=== PATIENT | male | born 1935 | race Caucasian/White ===

== ENCOUNTER → 2017-11-28 12:46 | Outpatient (CLI) | payer MEDICARE, SELFPAY ==
[2017-11-28 13:31] LABS: AST(SGOT) 21 U/L (15-37); Alanine Aminotransfer ALT/SGPT 34 U/L (16-61); Albumin, Serum 3.7 g/dL (3.2-5.0); Alkaline Phosphatase 76 U/L (45-117); Bilirubin, Direct 0.12 mg/dL (0.00-0.30); Cholesterol 123 mg/dL (200); Globulin 3.9 g/dL (2.2-4.2); High Density Lipoprotein 34 mg/dL; Protein, Total 7.6 g/dL (6.4-8.2); Triglycerides 100 mg/dL; Very Low Density Lipoprotein 20 mg/dL (5-40)
== END ==
PROVIDERS: Family Provider Internal Medicine; PCP Internal Medicine; Visit Provider Internal Medicine Cardiovascular Disease
DX: E78.5 Hyperlipidemia, unspecified (principal); Z79.899 Other long term (current) drug therapy
CPT/HCPCS: 36415; 80061; 80076

== ENCOUNTER → 2018-01-27 11:01 | Outpatient (CLI) | payer MEDICARE, SELFPAY ==
--- NOTE | 2018-01-27 11:21 | RAD_ITS ---
STUDY: X-RAY CHEST REASON FOR EXAM: Male, 82 years old. Short of breath. COPD. Heart disease. TECHNIQUE: Frontal and lateral views of the chest. COMPARISON: 11/28/2014. FINDINGS: The lungs are hyperexpanded. There are coarsened interstitial markings suggestive of mild chronic fibrosis. No gross focal infiltrates. No gross effusions. Normal size heart. Normal mediastinum and frank. Normal visualized pulmonary arteries. Normal visualized aortic arch and descending thoracic aorta. There are diffuse degenerative changes of the visualized thoracic spine. There has been previous surgical repair of right clavicular fracture. There is no demonstrated abnormality of the visualized soft tissue structures of the upper abdomen. RAD/Chest PA and Lateral IMPRESSION: There are findings consistent with COPD. There is no evidence of acute chest disease. Electronically Signed: Hunter Perea MD at 16:33 EDT , Service support ,
[2018-01-27 12:20] LABS: Anion Gap 5 (5-15); BUN 15 mg/dL (7-18); BUN/Creat Ratio 13.3 RATIO (10-20); Calcium,Total 8.7 mg/dL (8.5-10.1); Chloride 105 mmol/L (98-107); Creatinine, Serum 1.13 mg/dL (0.70-1.30); EST Glomerular Filtration Rate 66 mL/min (>60); Est Glom Filt Rate - Afr Amer 80 mL/min (>60); Glucose 174 mg/dL (74-106); Potassium 3.8 mmol/L (3.5-5.1); Sodium Level 139 mmol/L (136-145)
[2018-01-27 12:33] LABS: BNP,B-Type NATRIURETIC PEPTIDE 102.8 pg/mL (0-100)
== END ==
PROVIDERS: Family Provider Internal Medicine; PCP Internal Medicine; Visit Provider Nurse Practitioner Acute Care
DX: R06.02 Shortness of breath (principal)
CPT/HCPCS: 36415; 71046; 80048; 83880

== ENCOUNTER → 2018-02-12 06:39 | Outpatient (CLI) | payer MEDICARE, SELFPAY ==
--- NOTE | 2018-02-12 08:54 | STRESSREP ---
Stress Test Report Pharmacologic myocardial perfusion stress test. 82-year-old male with a history of chest pain. Stress protocol: Resting EKG demonstrates sinus bradycardia with a rate of 50 bpm. Resting blood pressure is 180/84 mmHg. 0.4 mg regadenoson was infused per usual protocol followed by Intravenous saline flush injection continuous EKG monitoring was performed patient maintained sinus rhythm throughout the recording with occasional premature ventricular complex noted. The maximum heart rate attained was 68 bpm which was 48% of maximum predicted heart rate the maximum workload was 1 metabolic equivalent. The resting blood pressure is 180/84 with a final blood pressure 160/82. Myocardial perfusion protocol. 11.3 mCi of technetium 99m sestamibi was injected at rest. 0.4 mg of regadenoson was infused per usual protocol. At peak infusion 33.9 mCi of technetium 99m sestamibi was injected stress images were obtained stress and rest images were reconstructed and compared in the short axis vertical long and horizontal long axis. Gated images were also obtained - Perfusion SPECT analysis: Review of the stress images demonstrate normal uptake of tracer noted in all areas of the myocardium. The resting images similarly demonstrate normal uptake of tracer noted in all areas of myocardium. No areas of reversibility are noted suggest ischemia no previous infarct is noted. Gated SPECT analysis: The gated ejection fraction was noted to be 61%. Conclusion: Normal pharmacologic myocardial perfusion stress test. Preserved ejection fraction.
[2018-02-12 10:56] VITALS: PULSE 60; PULSE 61; PULSE 62; PULSE 67; PULSE 69; PULSE 71; PULSE 72; PULSE 74; O2SAT 93; O2SAT 94; O2SAT 95; O2SAT 98
--- NOTE | 2018-02-13 08:42 | WT_ITS ---
PSN 6 Minute Walk Test - 6 Minute Walk Test 6 Minute Walk Test: 6 Minute Walk Test PSN:6-Minute Walk Test Start: 02/12/18 10: 56 Freq: Status: Active Protocol: [id number] Document 02/12/18 10:56 CAILINRAVIN (Rec: 02/12/18 10:58 CAILINRAVIN [id number]) 6 Minute Walk Test Date Performed 02/12/18 Time Performed 10:40 Height 5 ft 10 in Weight: 212 lb Weight in Pounds 212.[address]: Chito Rivero Assistive device used: None Pre-test Oxygen Delivery Method Room Air Pulse Ox (%) 95 Pulse Rate (60-100 beats/min) 61 Dyspnea Skyler Scale (0-10) 0 Exertion Skyler Scale (6-20) 6 1st minute Oxygen Delivery Method Room Air Pulse Ox (%) 95 Pulse Rate (60-100 beats/min) 62 2nd minute Oxygen Delivery Method Room Air Pulse Ox (%) 94 Pulse Rate (60-100 beats/min) 67 3rd minute Oxygen Delivery Method Room Air Pulse Ox (%) 94 Pulse Rate (60-100 beats/min) 69 4th minute Oxygen Delivery Method Room Air Pulse Ox (%) 93 Pulse Rate (60-100 beats/min) 71 5th minute Oxygen Delivery Method Room Air Pulse Ox (%) 94 Pulse Rate (60-100 beats/min) 72 6th minute Oxygen Delivery Method Room Air Pulse Ox (%) 94 Pulse Rate (60-100 beats/min) 74 Dyspnea Skyler Scale (0-10) 2 Exertion Skyler Scale (6-20) 14 Post-test Oxygen Delivery Method Room Air Pulse Ox (%) 98 Pulse Rate (60-100 beats/min) 60 Full Laps Walked 12 Partial Lap, Number of Tiles Walked 35 Total Distance Walked (ft) 743 - Interpretation Interpretation: The patient ambulated 743 feet over the course of 6 minutes beginning on room air without assistive devices or breaks. Pretesting oxygen saturation was noted to be 95% on room air. With ambulation, the gamaliel oxygen saturation was 93%. There was no significant exertional oxygen desaturation. - Recommendations Recommendations: There is no indication for the use of supplemental oxygen at this time.
--- NOTE | 2018-02-18 14:00 | ECHOD_ITS ---
Reason For Study: DYSPNEA/SOB Procedure This was a 2D Doppler, Color Flow transthoracic echocardiogram. Exam performed in department. Left Ventricle Normal LV size. Sigmoid septum. Left ventricular systolic function is normal. The estimated ejection fraction is 60 %. Transmitral diastolic flow velocities suggest mild (stage 1) diastolic dysfunction (reversed pattern). No regional wall motion abnormalities noted. Right Ventricle Normal RV size. Normal systolic function. Atria Normal left atrium. Normal right atrium. Mitral Valve Bileaflet diffuse mitral valve thickening. Mild mitral valve prolapse. Tricuspid Valve Normal tricuspid valve. Mild (1+) tricuspid valve insufficiency. Pulmonary artery systolic pressure is 33 mmHg. Aortic Valve Trisinus/trileaflet aortic valve. Pulmonic Valve Normal pulmonic valve. Great Vessels Normal aortic root. The pulmonary artery is normal size. Normal inferior vena cava. Pericardium/Pleural No pericardial effusion. MMode/2D Measurements & Calculations LVIDd: 4.9 cm IVSd: 1.4 cm Ao root diam: 2.9 cm LVIDs: 3.4 cm LVPWd: 0.91 cm RVDd: 3.4 cm FS: 31.1 % LAV(MOD-bp): 61.6 ml LA A4 area: 18.5 cm2 RA A4 area: 17.4 cm2 LAV(MOD-bp) Indexed: 28.8 ml/m2 LAV(MOD-sp2): 74.8 ml LAV(MOD-sp4): 49.4 ml Doppler Measurements & Calculations MV E max juaquin: 62.1 cm/sec Lat Peak E' Juaquin: 5.0 cm/sec Med Peak E' Juaquin: 3.6 cm/sec MV A max juaquin: 99.2 cm/sec E/E' lat: 12.5 E/E' med: 17.2 MV E/A: 0.63 Ao V2 max: 96.8 cm/sec LV V1 max: 76.3 cm/sec PA V2 max: 54.9 cm/sec Ao max P.7 mmHg LV V1 max P.3 mmHg TR max juaquin: 276.6 cm/sec TR max P.6 mmHg Interpretation Summary Normal LV size. Left ventricular systolic function is normal. The estimated ejection fraction is 60 %. Transmitral diastolic flow velocities suggest mild (stage 1) diastolic dysfunction (reversed pattern). Bileaflet diffuse mitral valve thickening. Mild mitral valve prolapse. Pulmonary artery systolic pressure is 33 mmHg. Ordering Physician: Nabil Pierre Referring Physician: Denise Cruz Performed By: Leatha Márquez, ARDEN, RVT
== END ==
PROVIDERS: Family Provider Internal Medicine; PCP Internal Medicine; Visit Provider Nurse Practitioner Acute Care
DX: R07.89 Other chest pain (principal); R06.02 Shortness of breath
CPT/HCPCS: 78452; 93017; 94618; A9500; A4216; J2785

== ENCOUNTER → 2018-02-18 13:49 | Outpatient (CLI) | payer MEDICARE, SELFPAY | PROVIDERS: Family Provider Internal Medicine; PCP Internal Medicine; Visit Provider Nurse Practitioner Acute Care | DX: R07.89 Other chest pain (principal) | CPT/HCPCS: 93306 ==

== ENCOUNTER → 2018-03-04 11:21 | Outpatient (CLI) | payer MEDICARE, SELFPAY ==
[2018-03-04 12:14] LABS: Absolute Lymphocyte Count 2.28 X10^3/ul (0.83-4.51); Basophil# 0.04 X10^3/uL; Basophil% 0.6 % (0-1); Eosinophil# 0.21 X10^3/uL; Eosinophils% 2.9 % (0-5); Hematocrit 37.7 % (40-54); Lymphocyte # 2.28 X10^3/ul (4.0); Mean Corpuscular Volume 97.2 fL (80-94); Mean Platelet Vol. 10.4 fl (6.2-12.0); Monocyte# 0.56 X10^3/uL; Monocyte% 7.9 % (0-10); Neutrophil % 56.2 % (47-70); Platelet Count 234 K/mm3 (150-450); RBC Distribution Width SD 42.1 fl (35.1-43.9); Red Blood Count 3.88 M/mm3 (4.6-6.2); White Blood Count 7.1 K/mm3 (4.4-11.0)
[2018-03-04 12:25] LABS: POSITIVE COUNT NO; POSITIVE DIFFERENTIAL NO; POSITIVE MORPHOLOGY NO
[2018-03-04 12:29] LABS: Hemoglobin 13.2 g/dl (13.0-16.5)
[2018-03-07 10:17] LABS: Immunoglobulin E 3 IU/mL (0-100)
== END ==
PROVIDERS: Family Provider Internal Medicine; PCP Internal Medicine; Visit Provider Nurse Practitioner Acute Care
DX: N18.4 Chronic kidney disease, stage 4 (severe) (principal); R06.02 Shortness of breath
CPT/HCPCS: 82785; 85025

== ENCOUNTER → 2018-04-15 10:28 | Outpatient (CLI) | payer MEDICARE, SELFPAY ==
[2018-04-15 15:38] LABS: Anion Gap 9 (5-15); BUN 22 mg/dL (7-18); BUN/Creat Ratio 15.9 RATIO (10-20); Calcium,Total 8.7 mg/dL (8.5-10.1); Chloride 102 mmol/L (98-107); Cholesterol 120 mg/dL (200); Creatinine, Serum 1.38 mg/dL (0.70-1.30); EST Glomerular Filtration Rate 53 mL/min (>60); Est Glom Filt Rate - Afr Amer 64 mL/min (>60); Glucose 145 mg/dL (74-106); High Density Lipoprotein 27 mg/dL; Potassium 3.8 mmol/L (3.5-5.1); Sodium Level 140 mmol/L (136-145); Triglycerides 187 mg/dL; Very Low Density Lipoprotein 37 mg/dL (5-40)
[2018-04-15 20:40] LABS: Absolute Lymphocyte Count 2.32 X10^3/ul (0.83-4.51); Absolute Neutrophil Count 3.2 X10^3/uL (2.0-7.7); Basophil# 0.03 X10^3/uL; Basophil% 0.5 % (0-1); Eosinophil# 0.22 X10^3/uL; Eosinophils% 3.4 % (0-5); Hematocrit 34.8 % (40-54); Lymphocyte # 2.32 X10^3/ul (4.0); Lymphocyte % 36.4 % (19-41); Mean Platelet Vol. 10.8 fl (6.2-12.0); Monocyte# 0.58 X10^3/uL; Monocyte% 9.1 % (0-10); Neutrophil # 3.22 X10^3/uL (2.7-7.7); Neutrophil % 50.4 % (47-70); Platelet Count 255 K/mm3 (150-450); RBC Distribution Width CV 13.1 % (11.6-14.6); RBC Distribution Width SD 44.9 fl (35.1-43.9); Red Blood Count 3.51 M/mm3 (4.6-6.2); White Blood Count 6.4 K/mm3 (4.4-11.0)
[2018-04-15 20:41] LABS: Differential Indicated SCAN CRITERIA MET; Hemoglobin 14.8 g/dl (13.0-16.5); POSITIVE COUNT YES; POSITIVE DIFFERENTIAL NO; POSITIVE MORPHOLOGY NO
[2018-04-15 20:43] LABS: Mean Corp Hgb Conc 42.9 g/gl (32-36); Mean Corpuscular Hgb 42.3 pg (27.0-32.0); Mean Corpuscular Volume 98.6 fL (80-94)
[2018-04-16 08:29] LABS: Vitamin B12 336 pg/mL (211-911)
[2018-04-16 15:49] LABS: Pathologist Review Reviewed
[2018-04-17 16:15] LABS: PROEL- A/G Ratio 1.1 (0.7-1.7); PROEL- Albumin 3.8 g/dL (2.9-4.4); PROEL- Alpha-1 Globulin 0.2 g/dL (0.0-0.4); PROEL- Alpha-2 Globulin 0.9 g/dL (0.4-1.0); PROEL- Gamma Globulin 1.4 g/dL (0.4-1.8); PROEL- Globulin, Total 3.5 g/dL (2.2-3.9); PROEL- TOTAL PROTEIN 7.3 g/dL (6.0-8.5)
== END ==
PROVIDERS: Family Provider Internal Medicine; PCP Internal Medicine; Visit Provider Internal Medicine
DX: Z79.899 Other long term (current) drug therapy (principal); D64.9 Anemia, unspecified; E11.9 Type 2 diabetes mellitus without complications
CPT/HCPCS: 80048; 80061; 82607; 83036; 84165; 85025

== ENCOUNTER → 2018-04-28 22:44 | Outpatient (CLI) | payer MEDICARE, SELFPAY | PROVIDERS: Family Provider Internal Medicine; PCP Internal Medicine; Visit Provider Nurse Practitioner Acute Care | DX: G47.33 Obstructive sleep apnea (adult) (pediatric) (principal) | CPT/HCPCS: 95810; 95811 ==

== ENCOUNTER → 2018-05-26 11:12 | Outpatient (CLI) | payer MEDICARE, SELFPAY ==
[2018-05-26 13:32] LABS: Anion Gap 6 (5-15); BUN 18 mg/dL (7-18); Calcium,Total 8.8 mg/dL (8.5-10.1); Chloride 103 mmol/L (98-107); Creatinine, Serum 1.38 mg/dL (0.70-1.30); EST Glomerular Filtration Rate 53 mL/min (>60); Est Glom Filt Rate - Afr Amer 64 mL/min (>60); Glucose 144 mg/dL (74-106); PSA,Total- Diagnostic 5.58 ng/mL (0.0-4.0); Potassium 4.2 mmol/L (3.5-5.1); Sodium Level 139 mmol/L (136-145)
== END ==
PROVIDERS: Family Provider Internal Medicine; PCP Internal Medicine; Visit Provider Nurse Practitioner
DX: N28.9 Disorder of kidney and ureter, unspecified (principal); N40.1 Benign prostatic hyperplasia with lower urinary tract symptoms; R35.1 Nocturia
CPT/HCPCS: 80048; 84153

== ENCOUNTER → 2018-07-10 20:00 | Outpatient (CLI) | payer MEDICARE, SELFPAY ==
[2018-07-10] MEDS: Zolpidem Tartrate 5 MG Tablet PO (21:30)
== END ==
PROVIDERS: Family Provider Internal Medicine; PCP Internal Medicine; Visit Provider Internal Medicine Critical Care Medicine
DX: G47.33 Obstructive sleep apnea (adult) (pediatric) (principal)
CPT/HCPCS: 95811

== ENCOUNTER → 2018-09-10 08:01 | Outpatient (CLI) | payer MEDICARE, SELFPAY ==
[2018-09-04 15:11] VITALS: BMI 29.5
[2018-09-10 13:36] LABS: Hemoglobin A1c 6.4 % (4.2-6.3)
[2018-09-10 13:37] LABS: Thyroid Stim Hormone (TSH) 2.52 uIU/mL (0.358-3.74)
== END ==
PROVIDERS: Family Provider Internal Medicine; PCP Internal Medicine; Referring Provider Internal Medicine; Visit Provider Internal Medicine
DX: Z79.899 Other long term (current) drug therapy (principal)
CPT/HCPCS: 83036; 84443

== ENCOUNTER → 2018-10-06 11:10 | Outpatient (CLI) | payer MEDICARE, SELFPAY ==
[2018-10-06 10:10] VITALS: BMI 29.8
[2018-10-06 11:38] LABS: Hematocrit 39.2 % (40-54); Hemoglobin 12.9 g/dl (13.0-16.5); Mean Corp Hgb Conc 32.9 g/gl (32-36); Mean Corpuscular Hgb 30.6 pg (27.0-32.0); Mean Corpuscular Volume 93.1 fL (80-94); Mean Platelet Vol. 10.2 fl (6.2-12.0); Platelet Count 316 K/mm3 (150-450); RBC Distribution Width CV 12.3 % (11.6-14.6); Red Blood Count 4.21 M/mm3 (4.6-6.2); Scan Indicated on CBC? Y/N NO; White Blood Count 7.6 K/mm3 (4.4-11.0)
[2018-10-06 12:14] LABS: Ferritin 28 ng/mL (26-388); Iron 55 ug/dL (65-175); Iron Binding Capacity,Total 311 ug/dL (250-450); Potassium 3.8 mmol/L (3.5-5.1)
== END ==
PROVIDERS: Family Provider Internal Medicine; PCP Internal Medicine; Referring Provider Nurse Practitioner Acute Care; Visit Provider Nurse Practitioner Acute Care
DX: N18.4 Chronic kidney disease, stage 4 (severe) (principal); G47.33 Obstructive sleep apnea (adult) (pediatric); Z79.899 Other long term (current) drug therapy
CPT/HCPCS: 36415; 82728; 83540; 83550; 84132; 85027

== ENCOUNTER → 2019-02-26 11:21 | Outpatient (CLI) | payer MEDICARE, SELFPAY ==
[2019-01-28 11:05] VITALS: BMI 29.8
[2019-02-26 12:16] LABS: AST(SGOT) 21 U/L (15-37); Alanine Aminotransfer ALT/SGPT 26 U/L (16-61); Albumin, Serum 3.5 g/dL (3.2-5.0); Alkaline Phosphatase 75 U/L (45-117); Bilirubin, Direct 0.18 mg/dL (0.00-0.30); Cholesterol 120 mg/dL (200); High Density Lipoprotein 32 mg/dL; Protein, Total 7.5 g/dL (6.4-8.2); Triglycerides 125 mg/dL; Very Low Density Lipoprotein 25 mg/dL (5-40)
== END ==
PROVIDERS: Family Provider Internal Medicine; PCP Internal Medicine; Referring Provider Physician Assistant Medical; Visit Provider Physician Assistant Medical
DX: I25.10 Atherosclerotic heart disease of native coronary artery without angina pectoris (principal); I12.9 Hypertensive chronic kidney disease with stage 1 through stage 4 chronic kidney disease, or unspecified chronic kidney disease; N18.4 Chronic kidney disease, stage 4 (severe); E78.5 Hyperlipidemia, unspecified
CPT/HCPCS: 36415; 80061; 80076

== ENCOUNTER → 2019-03-04 11:45 | Outpatient (CLI) | payer MEDICARE, SELFPAY ==
[2019-01-28 11:05] VITALS: BMI 29.8
--- NOTE | 2019-03-04 11:55 | RAD_ITS ---
STUDY: X-RAY - LUMBAR SPINE REASON FOR EXAM: Male, 83 years old. Chronic back pain. TECHNIQUE: 3 view(s) of the lumbar spine were obtained. COMPARISON: None FINDINGS: Normal lumbar lordosis. There is a minimal levoscoliosis of the lumbar spine. There is a normal alignment of the vertebrae. There is multilevel endplate spondylosis of the lumbar vertebrae. There is multi-level degenerative disc disease with multi-level disc space narrowing. Facet joint osteoarthritis. There is atherosclerotic calcification of the abdominal aorta without a demonstrated aneurysm. RAD/Lumbar Spine 2 or 3 Views IMPRESSION: Degenerative changes of the spine, as detailed above. Electronically Signed: Yemi Clifton, at 12:26 EDT , Service support ,
== END ==
PROVIDERS: Family Provider Internal Medicine; PCP Internal Medicine; Referring Provider Anesthesiology Pain Medicine; Visit Provider Anesthesiology Pain Medicine
DX: M54.5 Low back pain (principal)
CPT/HCPCS: 72100

== ENCOUNTER → 2019-05-26 10:52 | Outpatient (CLI) | payer MEDICARE, SELFPAY ==
[2019-05-07 13:08] VITALS: BMI 29.5
[2019-05-26 11:17] LABS: Anion Gap 3 (5-15); BUN 20 mg/dL (7-18); BUN/Creat Ratio 14.1 RATIO (10-20); Chloride 102 mmol/L (98-107); Cholesterol 117 mg/dL (200); Creatinine, Serum 1.42 mg/dL (0.70-1.30); EST Glomerular Filtration Rate 51 mL/min (>60); Est Glom Filt Rate - Afr Amer 61 mL/min (>60); Glucose 179 mg/dL (74-106); High Density Lipoprotein 33 mg/dL; Potassium 3.7 mmol/L (3.5-5.1); Sodium Level 137 mmol/L (136-145); Triglycerides 99 mg/dL; Very Low Density Lipoprotein 20 mg/dL (5-40)
[2019-05-26 11:24] LABS: Hemoglobin A1c 7.9 % (4.2-6.3)
== END ==
PROVIDERS: Family Provider Internal Medicine; PCP Internal Medicine; Referring Provider Internal Medicine; Visit Provider Internal Medicine
DX: E11.49 Type 2 diabetes mellitus with other diabetic neurological complication (principal)
CPT/HCPCS: 80048; 80061; 83036

== ENCOUNTER 2019-06-29 10:41 | Observation (INO) | payer MEDICARE, SELFPAY ==
[2019-05-07 13:08] VITALS: BMI 29.5
[2019-06-29] VITALS (11 sets, daily range): BP systolic 126–165; BP diastolic 62–75; PULSE 50–80; RESP 17–18; TEMP 36.4–36.6; O2SAT 95–98; BMI 29.7; BMI 29.1; BMI 29.2
--- NOTE | 2019-06-29 11:22 | EKG12_ITS ---
Test Reason : CP Blood Pressure : / mmHG Vent. Rate : 066 BPM Atrial Rate : 066 BPM P-R Int : 210 ms QRS Dur : 096 ms QT Int : 446 ms P-R-T Axes : 022 028 040 degrees QTc Int : 467 ms Sinus rhythm with 1st degree A-V block Otherwise normal ECG Confirmed by JUAN SMITH, ANA ([id number]), building illuminating engineer LASHANDA GARNETT ([id number]) on 07/01/2019 10:42:47 AM Referred By: SHARITA/SUJATHA Confirmed By:ANA MARTINEZ MD
--- NOTE | 2019-06-29 11:27 | ED.DCSUM_ITS ---
- ER Visit Summary Date of Service: 06/29/19 Chief Complaint: Lightheadedness, chest pain History of Present Illness: The patient is a 84 M presenting with lightheadedness, chest pain. Patient states that he had an episode this morning where he felt very lightheaded and nearly passed out. He denies vertigo. He states he has been having intermittent chest pain and shortness of breath as well today. He has had a mild cough. He has a history of CAD, diabetes, hypertension, hypercholesterolemia. He is not a smoker. Physical Examination: Vitals are stable. Patient is afebrile. Alert no acute distress. HEENT exam is unremarkable. Neck is supple. Lungs are clear and equal bilaterally. Heart is regular rate and rhythm. Abdomen is soft nontender nondistended. Extremities are unremarkable. Skin is warm and dry. No focal neurologic deficit. Remainder of exam is unremarkable. Emergency Department Course and Treatment: EKG sinus rate of 66 with first- degree AV block. Chest x-ray shows no acute process. CBC, chemistries unremarkable other than glucose 212, BUN 19, creatinine 1.51. Troponin is negative. Patient was given aspirin on arrival. On repeat evaluation he is chest pain-free. Discussed with the hospitalist for observation. Disposition: Observation Impression: Chest pain, near-syncope This note was generated with [employer] dictation software. It may contain incorrect words, spelling, and punctuation that were not noted in review of the chart prior to signing ED Disposition - Plan for ED Patient: Referrals: Emeka Horn MD [Primary Care Provider] -
[2019-06-29] MEDS: Aspirin 81 MG TAB.CHEW 324 MG PO (11:39)
[2019-06-29 11:42] LABS: Absolute Lymphocyte Count 1.85 X10^3/uL (0.83-4.51); Absolute Neutrophil Count 4.3 X10^3/uL (2.0-7.7); Basophil# 0.03 X10^3/uL; Basophil% 0.4 % (0-1); Eosinophils% 2.8 % (0-5); Hemoglobin 13.6 g/dL (13.0-16.5); Lymphocyte # 1.85 X10^3/ul (4.0); Lymphocyte % 26.3 % (19-41); Mean Corpuscular Hgb 31.2 pg (27.0-32.0); Mean Corpuscular Volume 91.7 fL (80-94); Mean Platelet Vol. 10.1 fl (6.2-12.0); Monocyte# 0.58 X10^3/uL; Monocyte% 8.2 % (0-10); NRBC Flagged by Analyzer 0 % (0-5); Neutrophil # 4.34 X10^3/uL (2.7-7.7); Neutrophil % 61.7 % (47-70); Platelet Count 278 K/mm3 (150-450); RBC Distribution Width CV 12.1 % (11.6-14.6); RBC Distribution Width SD 40.5 fl (35.1-43.9); Red Blood Count 4.36 M/mm3 (4.6-6.2)
--- NOTE | 2019-06-29 11:50 | RAD_ITS ---
STUDY: X-RAY CHEST REASON FOR EXAM: Male, 84 years old. Weakness TECHNIQUE: Single AP portable view of the chest. COMPARISON: 01/27/2018 FINDINGS: The lungs are clear and expanded. There is no demonstrated pleural abnormality. Normal size heart. Normal mediastinum and frank. Normal visualized pulmonary arteries. Normal visualized aortic arch and descending thoracic aorta. Normal visualized thoracic spine. Healed fracture the right clavicle with a superior plate and screws. There is no demonstrated abnormality of the visualized soft tissue structures of the upper abdomen. RAD/Chest 1 View (Portable) IMPRESSION: No active disease. Electronically Signed: Colton Macdonald MD at 12:09 EDT Tel , Service support ,
[2019-06-29 12:01] LABS: Anion Gap 10 (5-15); BUN 19 mg/dL (7-18); BUN/Creat Ratio 12.6 RATIO (10-20); Calcium,Total 8.6 mg/dL (8.5-10.1); Chloride 100 mmol/L (98-107); Creatinine, Serum 1.51 mg/dL (0.70-1.30); EST Glomerular Filtration Rate 47 mL/min (>60); Est Glom Filt Rate - Afr Amer 57 mL/min (>60); Estimated Creatinine Clearance 38.94 ml/min; Glucose 212 mg/dL (74-106); Potassium 3.5 mmol/L (3.5-5.1); Sodium Level 138 mmol/L (136-145)
--- NOTE | 2019-06-29 12:47 | PCM.PN.HOSP ---
Vitals/I&O's: Vital Signs Temp Pulse Resp BP Pulse Ox 97.7 F L 80 17 126/66 H 95 06/29/19 10:42 06/29/19 10:42 06/29/19 10:42 06/29/19 10:42 06/29/19 11:36 Oxygen Delivery Method Room Air Weight: 93.9 kg Body Mass Index (BMI) 29.7 Laboratory Results 06/29/19 11:25: WBC 7.0, RBC 4.36 L, Hgb 13.6, Hct 40.0, MCV 91.7, MCH 31.2, MCHC 34.0, RDW Std Deviation 40.5, RDW Coeff of Justin 12.1, Plt Count 278, MPV 10.1, Immature Gran % (Auto) 0.600, Neut % (Auto) 61.7, Lymph % (Auto) 26.3, [place] % (Auto) 8.2, Eos % (Auto) 2.8, Baso % (Auto) 0.4, Absolute Neuts (auto) 4.3, Absolute Lymphs (auto) 1.85, Nucleated RBC % 0 06/29/19 11:25: Sodium 138, Potassium 3.5, Chloride 100, Carbon Dioxide 28.0, Anion Gap 10, BUN 19 H, Creatinine 1.51 H, Estim Creat Clear Calc 38.94, Est GFR (MDRD) Af Amer 57 L, Est GFR (MDRD) Non-Af 47 L, BUN/Creatinine Ratio 12.6, Glucose 212 H, Calcium 8.6, Troponin I < 0.015 Medical Necessity - Tobacco Use Smoking Status: Former smoker Tobacco Use: Cigarettes Assessment/Plan All Active Problems (Last Reviewed 05/07/19 @ 13:10 by Janki Goel) History of coronary artery stent placement (Resolved 02/17/08) Chest pain (Resolved) History of coronary artery disease with angioplasty and stenting of his RCA with mild residual disease in his distal RCA. Heart catheterization in 2013 demonstrated patency of previously placed stents with distal disease in his first diagonal vessel. Code Visit OBSV E&M: 28705 Initial observation care L3
--- NOTE | 2019-06-29 12:48 | NURSING ---
PCU OBS CP, NEAR SYNCOPE KITTOE
--- NOTE | 2019-06-29 13:22 | ECHOD_ITS ---
Reason For Study: DYSPNEA/SOB Procedure This was a 2D Doppler, Color Flow transthoracic echocardiogram. The study was technically difficult. Exam performed portable in patient room. Left Ventricle Normal LV size. Left ventricular systolic function is normal. The estimated ejection fraction is 60 %. Stage 1 diastolic dysfunction. No regional wall motion abnormalities noted. Right Ventricle Normal RV size. Normal systolic function. Atria The left atrium is mildly enlarged. Normal right atrium. Mitral Valve Mild focal mitral valve calcification. Mild (1+) eccentric mitral valve insufficiency. Tricuspid Valve Normal tricuspid valve. Aortic Valve Normal aortic valve. Pulmonic Valve Normal pulmonic valve. Great Vessels Normal aortic root. The pulmonary artery is normal size. Normal inferior vena cava. Pericardium/Pleural No pericardial effusion. MMode/2D Measurements & Calculations LVIDd: 4.7 cm IVSd: 1.4 cm Ao root diam: 3.2 cm LVIDs: 3.1 cm LVPWd: 1.1 cm LA dimension: 4.1 cm RVDd: 3.4 cm FS: 34.4 % LAV(MOD-bp): 71.0 ml LA A4 area: 20.3 cm2 LA dimension(2D): 4.1 cm LAV(MOD-bp) Indexed: 33.5 ml/m2 LAV(MOD-sp2): 82.5 ml LAV(MOD-sp4): 60.5 ml RA A4 area: 15.2 cm2 Time Measurements MV dec time: 0.34 sec Doppler Measurements & Calculations MV E max juaquin: 53.0 cm/sec Lat Peak E' Juaquin: 4.7 cm/sec Med Peak E' Juaquin: 8.3 cm/sec MV A max juaquin: 103.4 cm/sec E/E' lat: 11.2 E/E' med: 6.4 MV E/A: 0.51 Ao V2 max: 96.9 cm/sec LV V1 max: 88.4 cm/sec PA V2 max: 61.3 cm/sec Ao max P.8 mmHg LV V1 max P.1 mmHg Interpretation Summary Normal LV size. Left ventricular systolic function is normal. The estimated ejection fraction is 60 %. Stage 1 diastolic dysfunction. Ordering Physician: Raymond Miles Referring Physician: Emeka Horn Performed By: Leatha Márquez, ARDEN, RVT
--- NOTE | 2019-06-29 13:54 | HP.PCM_ITS ---
Problem List (1) Pre-syncope Status: Acute (2) Chest pain Status: Acute (3) Restless legs Status: Chronic (4) MARIXA (obstructive sleep apnea) Status: Chronic (5) History of coronary artery stent placement Status: Resolved Comment: [id number]-TEE 1997; OSL-WNY-Vie-Distal RCA 02/17/2008 (6) Essential (primary) hypertension Status: Chronic (7) Claudication Status: Chronic (8) Atherosclerotic heart disease of [place] coronary artery without angina pectoris Status: Chronic Qualifiers: (9) HLD (hyperlipidemia) Status: Chronic Qualifiers: (10) Dyslipidemia Status: Chronic (11) PVD (peripheral vascular disease) Status: Chronic History of Present Illness Date of Admission: 06/29/19 Chief Complaint: Lightheadedness. Chest discomfort The patient is a 84 year old M past medical history CAD with previous stent placement in his RCA, diabetes mellitus type 2 hypertension chronic kidney disease stage III who presented with lightheadedness. Patient symptoms started on the morning of his presentation. He felt his weird sensation which he described as feeling of passing out. He later developed chest discomfort. Encouraged by to present to the emergency department. Initial set of c ardiac enzymes and EKG came back unremarkable. Given patient's significant past cardiac history he was admitted to monitored bed for subsequent management. Past Medical History Past Medical History (Chronic Problems): Chronic Problems (Last Reviewed 05/07/19 @ 13:10 by Janki Goel) Restless legs (Chronic) MARIXA (obstructive sleep apnea) (Chronic) Essential (primary) hypertension (Chronic) Claudication (Chronic) Atherosclerotic heart disease of [place] coronary artery without angina pectoris (Chronic) HLD (hyperlipidemia) (Chronic) Dyslipidemia (Chronic) PVD (peripheral vascular disease) (Chronic) Medical History: Medical History (Last Reviewed 06/29/19 @ 13:58 by Raymond Miles MD) Essential (primary) hypertension (Chronic) I10 Claudication (Chronic) I73.9 Atherosclerotic heart disease of [place] coronary artery without angina pectoris (Chronic) I25.10 HLD (hyperlipidemia) (Chronic) E78.5 Dyslipidemia (Chronic) E78.5 PVD (peripheral vascular disease) (Chronic) I73.9 CKD (chronic kidney disease) stage 4, GFR 15-29 ml/min N18.4 COPD (chronic obstructive pulmonary disease) J44.9 Carotid bruit R09.89 DDD (degenerative disc disease), lumbar M51.36 DM2 (diabetes mellitus, type 2) E11.9 Daytime hypersomnia G47.19 MARIXA (obstructive sleep apnea) G47.33 Overweight E66.3 Restless legs syndrome G25.81 Seasonal allergies J30.2 Somatic dysfunction of pelvic region M99.05 Aortic aneurysm I71.9 Chest pain (Resolved) R07.9 Allergies cilostazol [From Pletal] Allergy (Verified 06/29/19 13:40) Unknown felodipine Allergy (Verified 06/29/19 13:40) Hives levofloxacin Allergy (Verified 06/29/19 13:40) Hives Sulfa (Sulfonamide Antibiotics) Allergy (Verified 06/29/19 13:40) Unknown Home Medications: Ambulatory Orders Medication Instructions Recorded Aspirin [Aspirin, Baby] 81 mg PO DAILY 03/28/14 Isosorbide Mononitrate [Imdur] 30 mg PO DAILY 03/28/14 Pantoprazole Sodium [Protonix] 40 mg PO DAILY 03/28/14 metFORMIN HCl [Glucophage] 500 mg PO DAILY 03/28/14 ammonium lactate 12 % lotion 1 applic TOPICAL QD-BID PRN 02/06/18 montelukast 10 mg tablet 10 mg PO QPM 02/06/18 nitroglycerin 0.4 mg sublingual 0.4 mg SUBLINGUAL Q5-15M PRN 02/06/18 tablet triamcinolone acetonide 55 mcg 2 spray INTRANASAL DAILY 09/04/18 nasal spray aerosol loratadine 10 mg capsule 10 mg PO QDAY #90 cap 09/15/18 Disability Placard 0 .ROUTE .MEDSUPPLY #1 ea 10/06/18 ropinirole 0.5 mg tablet 0.5 mg PO QHS #60 tab 11/06/18 nifedipine ER 90 mg 90 mg PO DAILY #90 tab 12/04/18 tablet,extended release guaifenesin ER 1,200 mg tablet, 1,200 mg PO Q12H #60 tab 01/28/19 extended release 12 hr atorvastatin 40 mg tablet 40 mg PO .COMPLEX #45 tab 02/26/19 hydrochlorothiazide 25 mg tablet 25 mg PO DAILY #90 tab 03/26/19 losartan 100 mg tablet 100 mg PO DAILY #90 tab 03/27/19 clopidogrel 75 mg tablet See Rx Instructions .ROUTE 04/16/19 .COMPLEX #90 tablet carvedilol 6.25 mg tablet 6.25 mg PO BID #180 tab 05/07/19 ipratropium bromide 42 mcg (0.06 2 spray INTRANASAL TID #15 ml 05/07/19 %) nasal spray Surgical History: Surgical History (Last Reviewed 06/29/19 @ 13:58 by Raymond Miles MD) History of coronary artery stent placement (Resolved) Onset Date: 02/17/08 Z95.5 [id number]-Qbuvt-FZX 1997; DER-ESP-Jic-Distal RCA 02/17/2008 H/O aortic aneurysm repair Onset Date: 11/1998 Z98.890, Z86.79 History of endarterectomy Onset Date: 07/2018 Z98.890 right iliac History of hernia repair Z98.890, Z87.19 03/1999 History of left heart catheterization Onset Date: 03/2014 Z98.890 History of vascular surgery Onset Date: ~08/2018 Z98.890 Surgical History: herniorrhaphy, - - AAA repair Smoking Status: Former smoker Tobacco Use: Cigarettes - *Family History Maternal Family History: Family History (Last Reviewed 06/29/19 @ 13:58 by Raymond Miles MD) Father Diabetes Cancer Paternal Family History: Family History (Last Reviewed 06/29/19 @ 13:58 by Raymond Miles MD) Father Diabetes Cancer Review of Systems Constitutional: Denies: Anorexia, Chills, Fever, Night Sweats, Weight Change HEENT: Denies: Head Aches, Sinus Congestion, Sinus Drainage Cardiovascular: Reports: Chest Pain, Light Headedness. Denies: Orthopnea, Palpitations, Paroxysmal Noc. Dyspnea Respiratory: Denies: Cough, Shortness of breath at rest, Shortness of breath upon exertion, Sputum production Gastrointestinal: Denies: Abdominal Pain, Hematemesis, Hematochezia, Nausea, Melena, Vomiting Genitourinary: Denies: Dysuria, Frequency, Hematuria, Urgency Musculoskeletal: Denies: Joint Pain, Joint Tenderness Skin: Denies: Rash Neurological: Denies: Focal weakness, Numbness, Tingling Psychiatric: Denies: Homicidal Ideations, Suicidal Ideations Hematologic/ Lymphatic: Denies: Easy Bruising, Easy Bleeding VTE Information - Inpt Only VTE Present on Admission: No VTE Mechan Device Prophylaxis: None VTE Pharm Prophylaxis ordered?: Yes Patient Problems: Active and Suspected Problems (Last Reviewed 05/07/19 @ 13:10 by Janki Goel) Pre-syncope (Acute) Chest pain (Acute) Objective: GENERAL: cooperative HEENT: Atraumatic; EYES; Anicteric, Normal Conjunctiva NECK; supple, normal thyroid, RESPIRATORY: Diminished to auscultation CARDIOVASCULAR: Regular S1 S2, GI: soft, non-tender, normoactive bowel sounds, : No Renal angle tenderness; EXTREMITIES: No edema, no clubbing, MUSCULOSKELETAL: No Joint Tenderness; NEURO: Awake; no lateralizing signs. SKIN: No Rash PSYCH; Normal affect - Physical Exam Vital Signs Temp Pulse Resp BP Pulse Ox 97.9 F 50 L 18 143/73 H 97 06/29/19 13:25 06/29/19 13:25 06/29/19 13:25 06/29/19 13:25 06/29/19 13:30 Oxygen Delivery Method Room Air Weight: 92.2 kg Body Mass Index (BMI) 29.1 Laboratory Tests Past 24 Hrs 06/29/19 06/29/19 11:25 11:25 WBC 7.0 RBC 4.36 L Hgb 13.6 Hct 40.0 MCV 91.7 MCH 31.2 MCHC 34.0 RDW Std Deviation 40.5 RDW Coeff of Justin 12.1 Plt Count 278 MPV 10.1 Immature Gran % (Auto) 0.600 Neut % (Auto) 61.7 Lymph % (Auto) 26.3 [place] % (Auto) 8.2 Eos % (Auto) 2.8 Baso % (Auto) 0.4 Absolute Neuts (auto) 4.3 Absolute Lymphs (auto) 1.85 Nucleated RBC % 0 Sodium 138 Potassium 3.5 Chloride 100 Carbon Dioxide 28.0 Anion Gap 10 BUN 19 H Creatinine 1.51 H Estim Creat Clear Calc 38.94 Est GFR (MDRD) Af Amer 57 L Est GFR (MDRD) Non-Af 47 L BUN/Creatinine Ratio 12.6 Glucose 212 H Calcium 8.6 Troponin I < 0.015 Assessment/Plan All Active Problems (Last Reviewed 05/07/19 @ 13:10 by Janki Goel) Pre-syncope (Acute) Chest pain (Acute) History of coronary artery stent placement (Resolved 05/13/08) Chest pain (Resolved) It is an 84-year-old gentleman presented with lightheadedness as well as chest discomfort 1. Chest Pain: Placed on a monitored bed; and is to rule out for Myocardial infarction with serial cardiac enzymes and EKGs. If negative, rule out Myocardial Ischemia with nuclear medicine stress test. 2. Presyncope do suspect dehydration patient has underlying history of chronic kidney disease stage III with baseline creatinine of 1.3. His creatinine was slightly elevated on admission started on gentle IV fluids with monitoring of electrolyte 3. Coronary artery disease with previous angioplasty and stenting of his RCA. Patient underwent repeat left heart catheterization in 2013 and he was reported to have patent stents 4. Diabetes mellitus type 2 with complications including diabetic nephropathy. Patient is on metformin this was held on admission please on Accu-Cheks before meals and at bedtime with sliding scale coverage 5. Dyslipidemia-patient is on statin therapy, continued at home dose 6. COPD currently not in exacerbation did continue with patient home aerosol 7. DVT prophylaxis dose adjusted for kidney function Advance planning; did discuss with the patient and family () regarding advanced directives as well as CODE STATUS. Did explain the various scenarios involved ( FULL CODE, DNR CCA, DNR CCA with no intubation, and DNR CC and what each meant) patient elected to remain full code. Order was placed. Time spent on discussion 18 minutes. Code Visit OBSV E&M: 92616 Initial observation care L3 Procedures: 74162 Advncd Care Plan 30 Min
[2019-06-29 17:45] LABS: Bedside Glucose 149 mg/dL (70-110)
[2019-06-29] MEDS: Carvedilol 6.25 MG Tablet PO (22:28)
[2019-06-29] MEDS: Montelukast 10 MG Tablet PO (22:28)
[2019-06-29] MEDS: Pramipexole Di-HCl 0.25 MG Tablet PO (22:34)
[2019-06-29 22:40] LABS: Bedside Glucose 127 mg/dL (70-110)
[2019-06-30 03:29] VITALS: PULSE 56
[2019-06-30 03:54] VITALS: BP 158/69; PULSE 57; RESP 20; TEMP 36.8; O2SAT 93
--- NOTE | 2019-06-30 05:04 | EKG12_ITS ---
Test Reason : AM EKG Blood Pressure : / mmHG Vent. Rate : 058 BPM Atrial Rate : 058 BPM P-R Int : 244 ms QRS Dur : 096 ms QT Int : 474 ms P-R-T Axes : 067 041 059 degrees QTc Int : 465 ms Sinus bradycardia with 1st degree A-V block Otherwise normal ECG When compared with ECG of 29-JUN-2019 13:29, MANUAL COMPARISON REQUIRED, DATA IS UNCONFIRMED Confirmed by RICHA SMITH, FARRAH ([id number]), editor sound SP VIVEROS ([id number]) on 07/06/2019 1:38:35 PM Referred By: JENNIFER Confirmed By:EUGENIE CHAUDHRY MD
[2019-06-30 05:52] LABS: Hematocrit 36.3 % (40-54); Hemoglobin 13.4 g/dL (13.0-16.5); Mean Corp Hgb Conc 36.9 g/dL (32-36); Mean Corpuscular Hgb 35.3 pg (27.0-32.0); Mean Corpuscular Volume 95.5 fL (80-94); Mean Platelet Vol. 10.4 fl (6.2-12.0); Platelet Count 250 K/mm3 (150-450); RBC Distribution Width SD 40.6 fl (35.1-43.9); White Blood Count 7.5 K/mm3 (4.4-11.0)
--- NOTE | 2019-06-30 05:55 | EKG12_ITS ---
Test Reason : CP ADMISSION Blood Pressure : / mmHG Vent. Rate : 051 BPM Atrial Rate : 051 BPM P-R Int : 238 ms QRS Dur : 094 ms QT Int : 486 ms P-R-T Axes : 053 040 056 degrees QTc Int : 447 ms Sinus bradycardia with sinus arrhythmia with 1st degree A-V block Otherwise normal ECG When compared with ECG of 28-NOV-2014 17:38, MO interval has increased Confirmed by RICHA SMITH, FARRAH ([id number]), makeup editor LASHANDA GARNETT ([id number]) on 07/03/2019 10:34:08 A M Referred By: TAYLOR Confirmed By:EUGENIE CHAUDHRY MD
[2019-06-30 06:27] LABS: ALB/GLOB Ratio 0.9 RATIO (0.9-2.4); AST(SGOT) 20 U/L (15-37); Alanine Aminotransfer ALT/SGPT 28 U/L (16-61); Albumin, Serum 3.2 g/dL (3.2-5.0); Alkaline Phosphatase 59 U/L (45-117); Anion Gap 8 (5-15); BUN 19 mg/dL (7-18); BUN/Creat Ratio 16.7 RATIO (10-20); Calcium,Total 8.4 mg/dL (8.5-10.1); Chloride 102 mmol/L (98-107); Cholesterol 110 mg/dL (200); Creatinine, Serum 1.14 mg/dL (0.70-1.30); EST Glomerular Filtration Rate 65 mL/min (>60); Est Glom Filt Rate - Afr Amer 79 mL/min (>60); Estimated Creatinine Clearance 51.58 ml/min; Globulin 3.7 g/dL (2.2-4.2); Glucose 158 mg/dL (74-106); High Density Lipoprotein 27 mg/dL; Potassium 3.3 mmol/L (3.5-5.1); Protein, Total 6.9 g/dL (6.4-8.2); Sodium Level 139 mmol/L (136-145); Thyroid Stim Hormone (TSH) 2.45 uIU/mL (0.358-3.74); Triglycerides 151 mg/dL; Very Low Density Lipoprotein 30 mg/dL (5-40)
[2019-06-30 06:28] VITALS: BP 160/75; PULSE 55; RESP 18; TEMP 36.7; O2SAT 94
[2019-06-30] MEDS: Aspirin 81 MG TAB.CHEW PO (06:31)
[2019-06-30] MEDS: Clopidogrel Bisulfate 75 MG Tablet PO (06:31)
[2019-06-30 06:55] LABS: Bedside Glucose 156 mg/dL (70-110)
[2019-06-30 09:00] VITALS: BP 156/68; PULSE 84; RESP 16; TEMP 36.8; O2SAT 97
--- NOTE | 2019-06-30 09:30 | STRESSREP ---
Stress Test Report Date: 06-30-19 Procedure: Pharmacologic stress nuclear imaging study Indications: Chest pain; CAD; PCI Consent: Per the patient Procedure: The patient underwent pharmacologic (Regadenoson) evaluation with a peak heart rate of 68 beats per minute (49 %predicted maximal heart rate) and a peak blood pressure of 172/80 mmHg. The baseline ECG demonstrated sinus bradycardia. The peak pharmacologic ECG demonstrated no obvious ECG changes. There was a rare PVC during recovery. There was no complaint of chest discomfort during pharmacologic infusion or recovery. The examination was discontinued secondary to completion of protocol. Impression: 1. Pharmacologic (Regadenoson) evaluation 2. Peak pharmacologic ECG with no obvious ECG changes. 3. There was a rare PVC during recovery. 4. Nuclear images pending Myocardial perfusion imaging study: Technique: The patient was injected with 11.8 millicuries of technetium 99m Cardiolite and subsequently rest SPECT Cardiolite nuclear imaging was obtained in the horizontal long, vertical long, and short axis views. The patient underwent pharmacologic (Regadenoson) evaluation with a peak heart rate of 68 beats per minute (49 % percent predicted maximal heart rate) and a peak blood pressure of 172/80 mmHg. The patient was injected with 34.1 millicuries of technetium 99m Cardiolite and subsequently stress SPECT Cardiolite nuclear imaging was obtained in the horizontal long, vertical long, and short axis views. A gated Cardiolite study at peak stress was obtained. Interpretation: Rest and stress SPECT Cardiolite nuclear imaging status post realignment, normalization, and attenuation correction demonstrate an area of diminished myocardial perfusion/tracer uptake apical segments without significant change between rest and stress. There is end systolic thickening and brightening. The gated Cardiolite study demonstrates myocardial thickening and inward wall motion. The reported LVEF is 61 %. Impression: 1. Rest and stress SPECT Cardiolite nuclear imaging demonstrate myocardial perfusion changes appearing compatible with the effects of physiologic apical thinning with no myocardial perfusion changes considered diagnostic for associated stress-induced myocardial ischemia. 2. The gated Cardiolite study reports an LVEF of 61 %. This note was generated with [employer] software. It may contain incorrect words, spelling, and punctuation that were not noted in checking the note before signing.
[2019-06-30] MEDS: Isosorbide Mononitrate 30 MG Tablet PO (09:46)
[2019-06-30] MEDS: Loratadine 10 MG Tablet PO (09:46)
[2019-06-30] MEDS: Losartan Potassium 100 MG Tablet PO (09:46)
[2019-06-30] MEDS: Carvedilol 6.25 MG Tablet PO (09:46)
[2019-06-30] MEDS: NIFEdipine 90 MG Tablet PO (09:47)
[2019-06-30] MEDS: Pantoprazole Sodium 40 MG Tablet PO (09:47)
[2019-06-30 11:00] VITALS: PULSE 64; O2SAT 93
--- NOTE | 2019-06-30 11:11 | DCINST_ITS ---
- Discharge Diagnoses Current Active Problems: Current Active and Chronic Problems (Last Reviewed 06/29/19 @ 13:58 by Raymond Miles MD) Pre-syncope (Acute) Chest pain (Acute) You will use the following diet at home:: Calorie/Carbohydrate Controlled (specify 1200, 1400, etc) - 1800 Your food should be the consistency of: Regular Discharge Activity: Return to Normal Activity Instructions: CHEST PAIN, NonCardiac Allergies/Adverse Reactions: Allergies cilostazol [From Pletal] Allergy (Verified 06/29/19 13:40) Unknown felodipine Allergy (Verified 06/29/19 13:40) Hives levofloxacin Allergy (Verified 06/29/19 13:40) Hives Sulfa (Sulfonamide Antibiotics) Allergy (Verified 06/29/19 13:40) Unknown Medications to take at Discharge Aspirin [Aspirin, Baby] 81 mg PO DAILY 03/28/14 Isosorbide Mononitrate [Imdur] 30 mg PO DAILY 03/28/14 Pantoprazole Sodium [Protonix] 40 mg PO DAILY 03/28/14 metFORMIN HCl [Glucophage] 500 mg PO BID 03/28/14 ammonium lactate 12 % lotion 1 applic TOPICAL QD-BID PRN 02/06/18 montelukast 10 mg tablet 10 mg PO QPM 02/06/18 nitroglycerin 0.4 mg sublingual tablet 0.4 mg SUBLINGUAL Q5-15M PRN 02/06/18 triamcinolone acetonide 55 mcg nasal spray aerosol 2 spray INTRANASAL DAILY 09/04/18 loratadine 10 mg capsule 10 mg PO QDAY #90 cap 09/15/18 Disability Placard 0 .ROUTE .MEDSUPPLY #1 ea 10/06/18 ropinirole 0.5 mg tablet 0.5 mg PO QHS #60 tab 11/06/18 nifedipine ER 90 mg tablet,extended release 90 mg PO DAILY #90 tab 12/04/18 atorvastatin 40 mg tablet 40 mg PO .COMPLEX #45 tab 02/26/19 hydrochlorothiazide 25 mg tablet 25 mg PO DAILY #90 tab 03/26/19 losartan 100 mg tablet 100 mg PO DAILY #90 tab 03/27/19 clopidogrel 75 mg tablet See Rx Instructions .ROUTE .COMPLEX #90 tablet 04/16/19 carvedilol 6.25 mg tablet 6.25 mg PO BID #180 tab 05/07/19 ipratropium bromide 42 mcg (0.06 %) nasal spray 2 spray INTRANASAL TID #15 ml 05/07/19 Primary Care Physician: Emeka Horn MD [Primary Care Provider] - Please follow up with your Primary Care Physician in: [place] 5-7 DAYS Test Results: Test results from this visit will be discussed in further detail at your follow- up appointment, if applicable. Proposed Discharge Date: 06/30/19
[2019-06-30 11:12] VITALS: BP 128/66; PULSE 86; RESP 18; O2SAT 97
--- NOTE | 2019-06-30 11:21 | DS.PCM_ITS ---
Discharge Date and Diagnosis - Problem List Patient Problems: Active and Suspected Problems (Last Reviewed 06/29/19 @ 13:58 by Raymond Miles MD) Pre-syncope (Acute) Chest pain (Acute) Date of Admission: 06/29/19 Date of Discharge: 06/30/19 - Primary Discharge Diagnosis Active and Suspected Problems (Last Reviewed 06/29/19 @ 13:58 by Raymond Miles MD) Pre-syncope (Acute) Chest pain (Acute) - Secondary Discharge Diagnosis Chronic Problems (Last Reviewed 06/29/19 @ 13:58 by Raymond Miles MD) Restless legs (Chronic) MARIXA (obstructive sleep apnea) (Chronic) Essential (primary) hypertension (Chronic) Claudication (Chronic) Atherosclerotic heart disease of [place] coronary artery without angina pectoris (Chronic) HLD (hyperlipidemia) (Chronic) Dyslipidemia (Chronic) PVD (peripheral vascular disease) (Chronic) Hospital Course and Treatment Imaging Results: 06/30/19 09:00 Nuclear Stress Test - Chemical [NM] Routine Summary of Care Provided: Patient is an 84-year-old gentleman presented with lightheadedness as well as chest discomfort 1. Chest Pain: Placed on a monitored bed; rule out AR with serial cardiac enzymes. Patient subsequently underwent a nuclear stress test which was negative for stress-induced ischemia. 2. Presyncope do suspect dehydration (acute kidney injury) patient has underlying history of chronic kidney disease stage III with baseline creatinine of 1.3. Patient was treated with IV fluids. Kidney function did improve with a creatinine of 1.16 on discharge 3. Coronary artery disease with previous angioplasty and stenting of his RCA. Patient underwent repeat left heart catheterization in 2013 and he was reported to have patent stents 4. Diabetes mellitus type 2 with complications including diabetic nephropathy. Patient is on metformin this was held on admission please on Accu-Cheks before meals and at bedtime with sliding scale coverage 5. Dyslipidemia-patient is on statin therapy, continued at home dose 6. COPD currently not in exacerbation did continue with patient home aerosol 7. DVT prophylaxis dose adjusted for kidney function Patient Problems: Active and Suspected Problems (Last Reviewed 06/29/19 @ 13:58 by Raymond Miles MD) Pre-syncope (Acute) Chest pain (Acute) Objective: GENERAL: cooperative HEENT: Atraumatic; EYES; Anicteric, Normal Conjunctiva NECK; supple, normal thyroid, RESPIRATORY: Diminished to auscultation CARDIOVASCULAR: Regular S1 S2, GI: soft, non-tender, normoactive bowel sounds, : No Renal angle tenderness; EXTREMITIES: No edema, no clubbing, MUSCULOSKELETAL: No Joint Tenderness; NEURO: Awake; no lateralizing signs. SKIN: No Rash PSYCH; Normal affect - Physical Exam Vital Signs Temp Pulse Resp BP Pulse Ox 98.2 F 64 16 156/68 H 97 06/30/19 09:00 06/30/19 11:00 06/30/19 09:00 06/30/19 09:00 06/30/19 09:00 Oxygen Delivery Method Room Air Weight: 92.079 kg Body Mass Index (BMI) 29.1 Intake and Output for Last 24 Hours 06/28/19 06/29/19 06/30/19 23:59 23:59 23:59 Intake Total 550 / 550 480 / 480 Balance 550 / 550 480 / 480 Laboratory Tests Past 24 Hrs 06/29/19 06/29/19 06/29/19 11:25 11:25 14:27 WBC 7.0 RBC 4.36 L Hgb 13.6 Hct 40.0 MCV 91.7 MCH 31.2 MCHC 34.0 RDW Std Deviation 40.5 RDW Coeff of Justin 12.1 Plt Count 278 MPV 10.1 Immature Gran % (Auto) 0.600 Neut % (Auto) 61.7 Lymph % (Auto) 26.3 Petroleum % (Auto) 8.2 Eos % (Auto) 2.8 Baso % (Auto) 0.4 Absolute Neuts (auto) 4.3 Absolute Lymphs (auto) 1.85 Nucleated RBC % 0 Sodium 138 Potassium 3.5 Chloride 100 Carbon Dioxide 28.0 Anion Gap 10 BUN 19 H Creatinine 1.51 H Estim Creat Clear Calc 38.94 Est GFR (MDRD) Af Amer 57 L Est GFR (MDRD) Non-Af 47 L BUN/Creatinine Ratio 12.6 Glucose 212 H Calcium 8.6 Total Bilirubin AST ALT Alkaline Phosphatase Troponin I < 0.015 < 0.015 Total Protein Albumin Globulin Albumin/Globulin Ratio Triglycerides Cholesterol LDL Cholesterol VLDL Cholesterol HDL Cholesterol TSH 06/29/19 06/30/19 06/30/19 17:30 05:33 05:33 WBC 7.5 RBC 3.80 L Hgb 13.4 Hct 36.3 L MCV 95.5 H MCH 35.3 H MCHC 36.9 H RDW Std Deviation 40.6 RDW Coeff of Justin 13.0 Plt Count 250 MPV 10.4 Immature Gran % (Auto) Neut % (Auto) Lymph % (Auto) [place] % (Auto) Eos % (Auto) Baso % (Auto) Absolute Neuts (auto) Absolute Lymphs (auto) Nucleated RBC % Sodium 139 Potassium 3.3 L Chloride 102 Carbon Dioxide 29.0 Anion Gap 8 BUN 19 H Creatinine 1.14 Estim Creat Clear Calc 51.58 Est GFR (MDRD) Af Amer 79 Est GFR (MDRD) Non-Af 65 BUN/Creatinine Ratio 16.7 Glucose 158 H Calcium 8.4 L Total Bilirubin 0.40 AST 20 ALT 28 Alkaline Phosphatase 59 Troponin I < 0.015 Total Protein 6.9 Albumin 3.2 Globulin 3.7 Albumin/Globulin Ratio 0.9 Triglycerides 151 Cholesterol 110 LDL Cholesterol 53 VLDL Cholesterol 30 HDL Cholesterol 27 L TSH 2.45 POC Glucose 06/30/19 06/29/19 06/29/19 06:30 22:25 16:40 POC Glucose 156 H 127 H 149 H Discharge Diet: 1800 Calorie Control Diet Discharge Activity: Return to Normal Activity Home Medications: Medications to take at Discharge Aspirin [Aspirin, Baby] 81 mg PO DAILY 03/28/14 Isosorbide Mononitrate [Imdur] 30 mg PO DAILY 03/28/14 Pantoprazole Sodium [Protonix] 40 mg PO DAILY 03/28/14 metFORMIN HCl [Glucophage] 500 mg PO BID 03/28/14 ammonium lactate 12 % lotion 1 applic TOPICAL QD-BID PRN 02/06/18 montelukast 10 mg tablet 10 mg PO QPM 02/06/18 nitroglycerin 0.4 mg sublingual tablet 0.4 mg SUBLINGUAL Q5-15M PRN 02/06/18 triamcinolone acetonide 55 mcg nasal spray aerosol 2 spray INTRANASAL DAILY 09/04/18 loratadine 10 mg capsule 10 mg PO QDAY #90 cap 09/15/18 Disability Placard 0 .ROUTE .MEDSUPPLY #1 ea 10/06/18 ropinirole 0.5 mg tablet 0.5 mg PO QHS #60 tab 11/06/18 nifedipine ER 90 mg tablet,extended release 90 mg PO DAILY #90 tab 12/04/18 atorvastatin 40 mg tablet 40 mg PO .COMPLEX #45 tab 02/26/19 hydrochlorothiazide 25 mg tablet 25 mg PO DAILY #90 tab 03/26/19 losartan 100 mg tablet 100 mg PO DAILY #90 tab 03/27/19 clopidogrel 75 mg tablet See Rx Instructions .ROUTE .COMPLEX #90 tablet 04/16/19 carvedilol 6.25 mg tablet 6.25 mg PO BID #180 tab 05/07/19 ipratropium bromide 42 mcg (0.06 %) nasal spray 2 spray INTRANASAL TID #15 ml 05/07/19 Primary Care Physician: Emeka Horn MD [Primary Care Provider] - Please follow up with your Primary Care Physician in: [place] 5-7 DAYS Patient Instructions: CHEST PAIN, NonCardiac Disposition: Home Minutes spent on discharge:: 35 Patient Condition:: Stable Medical Necessity - Tobacco Use Smoking Status: Former smoker Tobacco Use: Cigarettes Meaningful Use Info Meaningful Use Diagnoses (Choose all that apply): None applicable Code Visit OBSV E&M: 29607 Observation care discharge
[2019-06-30 11:26] LABS: Bedside Glucose 199 mg/dL (70-110)
== END 2019-06-30 11:12 | disposition home or self-care (01) ==
LOC: ED 11:33 → PCU 13:21
PROVIDERS: Admitting Provider Internal Medicine; Emergency Provider Emergency Medicine; Family Provider Internal Medicine; PCP Internal Medicine; Visit Provider Internal Medicine
DX: R07.89 Other chest pain (principal); R55 Syncope and collapse; E78.5 Hyperlipidemia, unspecified; I25.10 Atherosclerotic heart disease of native coronary artery without angina pectoris; N18.4 Chronic kidney disease, stage 4 (severe); E11.51 Type 2 diabetes mellitus with diabetic peripheral angiopathy without gangrene; G47.33 Obstructive sleep apnea (adult) (pediatric); G25.81 Restless legs syndrome; E11.22 Type 2 diabetes mellitus with diabetic chronic kidney disease; I12.9 Hypertensive chronic kidney disease with stage 1 through stage 4 chronic kidney disease, or unspecified chronic kidney disease; Z79.899 Other long term (current) drug therapy; Z79.82 Long term (current) use of aspirin; Z79.84 Long term (current) use of oral hypoglycemic drugs; Z79.02 Long term (current) use of antithrombotics/antiplatelets; Z87.891 Personal history of nicotine dependence
CPT/HCPCS: 36415; 71045; 78452; 80048; 80053; 80061; 82962; 84443; 84484; 85025; 85027; 93005; 93017; 93306; 99218; 99251; 99285; A9500; Q9957; A4216; G0378; G0463; J2785

== ENCOUNTER → 2019-09-01 09:59 | Outpatient (CLI) | payer MEDICARE, SELFPAY ==
[2019-06-29 13:25] VITALS: BMI 29.1
[2019-09-01 11:17] LABS: AST(SGOT) 18 U/L (15-37); Alanine Aminotransfer ALT/SGPT 24 U/L (16-61); Albumin, Serum 3.9 g/dL (3.2-5.0); Alkaline Phosphatase 62 U/L (45-117); Bilirubin, Direct 0.14 mg/dL (0.00-0.30); Cholesterol 131 mg/dL (200); High Density Lipoprotein 44 mg/dL; Protein, Total 7.9 g/dL (6.4-8.2); Triglycerides 85 mg/dL; Very Low Density Lipoprotein 17 mg/dL (5-40)
== END ==
PROVIDERS: Family Provider Internal Medicine; PCP Internal Medicine; Referring Provider Internal Medicine Cardiovascular Disease; Visit Provider Internal Medicine Cardiovascular Disease
DX: E78.5 Hyperlipidemia, unspecified (principal)
CPT/HCPCS: 36415; 80061; 80076

== ENCOUNTER 2019-09-18 23:11 | Observation (INO) | payer MEDICARE, SELFPAY ==
[2019-06-29 13:25] VITALS: BMI 29.1
[2019-09-18 23:12] VITALS: BP 161/91; PULSE 92; RESP 16; TEMP 36.8; O2SAT 98; BMI 30.7
[2019-09-18 23:31] LABS: Bedside Glucose 352 mg/dL (70-110)
--- NOTE | 2019-09-18 23:47 | ED.VIS.GEN ---
History of Present Illness Chief Complaint: Abd Pain Narrative: Patient is an 84-year-old male who presents with a cough and abdominal pain. He reports about 10 days of productive cough. He is chronically dyspneic but this is at baseline. He reports chronic dyspnea with exertion which is no worse than usual. No chest pain. He also complains about 3 to 4 days of left upper quadrant abdominal pain and he notes that there is a knot when he feels this area. No fevers. No vomiting or diarrhea. Past Medical History - Allergies and Home Meds Allergies/Adverse Reactions: Allergies cilostazol [From Pletal] Allergy (Verified 09/18/19 23:16) Unknown felodipine Allergy (Verified 09/18/19 23:16) Hives levofloxacin Allergy (Verified 09/18/19 23:16) Hives Sulfa (Sulfonamide Antibiotics) Allergy (Verified 09/18/19 23:16) Unknown Primary Care Physician: Emeka Horn MD [Primary Care Provider] - Past Medical History: - - Diabetes, hypertension, hyperlipidemia, coronary artery disease Surgical History: herniorrhaphy, - - AAA repair Smoking Status: Former smoker Review of Systems All systems negative except as indicated General: Denies: Fever Eyes: Denies: Visual changes - bilaterally ENT: Denies: Bilateral ear pain Cardiovascular: Denies: Chest pain Respiratory: Reports: Dyspnea, Cough, Sputum Gastrointestinal: Reports: Abdominal pain. Denies: Nausea, Vomiting, Diarrhea Musculoskeletal: Denies: Myalgias, Arthralgias Skin: Denies: Rash Neurological: Denies: Headache Allergy: Denies: Uticaria Physical Exam Vital Signs/Narrative: Vital Signs Temp Pulse Resp BP Pulse Ox 09/18/19 23:12 98.3 F 92 16 161/91 H 98 Inital Vital Signs reviewed: Yes General: Well nourished, Well developed Head: Normocephalic Eyes: EOMI ENT: Moist mucous membranes Neck: Supple Cardiovascular: Regular rate, Regular rhythm Respiratory: No distress, CTA bilaterally Abdomen: Soft, - - Patient has focal tenderness at the left upper quadrant. There is a discrete firm palpable area of induration or possible mass within the abdominal wall that measures roughly 10 x 8 cm the remainder of the abdomen is nontender Extremities: Nontender Skin: Normal color Neurological: Alert Psychological: Normal affect Diagnostic/Tx/Re-eval Impressions Chest X-Ray 09/19/19 00:00 IMPRESSION: No acute cardiopulmonary disease perceived. at 0137 Reported and signed by: Huber Salamanca MD Electronically Signed: Huber Salamanca MD at 1:36 EST Tel , Service support , Abdomen/Pelvis CT 09/19/19 00:10 IMPRESSION: 4.4 x 3.3 x 14 cm in craniocaudal dimension left rectus abdominis muscle mass that is new since June 08, 2016. This most likely represents an intramuscular hematoma. Prostatic hypertrophy. Severe abdominal atherosclerotic disease with some surgical clips about the abdominal aorta. 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 On today's study it measures 4.4 x 3.3 cm. This is increased in size from 3.8 x 2.7 cm on the June 08, 2016 study. Individualized dose optimization techniques were used for this CT. at 0135 Reported and signed by: Huber Salamanca MD Electronically Signed: Huber Salamanca MD at 1:34 EST Tel , Service support , 09/19/19 00:00 Chest PA and Lateral [RAD] Stat 09/19/19 00:10 Abdomen/Pelvis without Cont [CT] Stat Laboratory Results 09/18/19 09/18/19 09/18/19 23:23 23:32 23:32 WBC 13.5 H RBC 3.72 L Hgb 13.0 Hct 35.8 L MCV 96.2 H MCH 34.9 H MCHC 36.3 H RDW Std Deviation 41.1 RDW Coeff of Justin 12.0 Plt Count 379 MPV 10.4 Immature Gran % (Auto) 1.200 H Neut % (Auto) 85.8 H Lymph % (Auto) 8.9 L [place] % (Auto) 4.0 Eos % (Auto) 0.0 Baso % (Auto) 0.1 Absolute Neuts (auto) 11.6 H Absolute Lymphs (auto) 1.20 Nucleated RBC % 0 PT INR Sodium 138 Potassium 3.8 Chloride 99 Carbon Dioxide 27.0 Anion Gap 12 BUN 30 H Creatinine 2.01 H Estim Creat Clear Calc 27.41 Est GFR (MDRD) Af Amer 41 L Est GFR (MDRD) Non-Af 34 L BUN/Creatinine Ratio 14.9 Glucose 363 H Calcium 8.9 POC Glucose 352 H 09/18/19 23:32 WBC RBC Hgb Hct MCV MCH MCHC RDW Std Deviation RDW Coeff of Justin Plt Count MPV Immature Gran % (Auto) Neut % (Auto) Lymph % (Auto) [place] % (Auto) Eos % (Auto) Baso % (Auto) Absolute Neuts (auto) Absolute Lymphs (auto) Nucleated RBC % PT 14.5 INR 1.2 Sodium Potassium Chloride Carbon Dioxide Anion Gap BUN Creatinine Estim Creat Clear Calc Est GFR (MDRD) Af Amer Est GFR (MDRD) Non-Af BUN/Creatinine Ratio Glucose Calcium POC Glucose - Medical Decision Making Patient's presentation was concerning for possible rectus hematoma. I was also concerned for potential pneumonia given his cough. He underwent the above evaluation with laboratory studies chest x-ray and CT of the abdomen. His labs are notable for mild leukocytosis with a white count of 13.5. Hemoglobin is normal. CT does show findings consistent with a rectus abdominis hematoma. Additionally the patient's creatinine is 2.0 up from 1.1 previously consistent with acute kidney injury. He was given IV fluids. I do feel he should be monitored in the hospital setting for hydration and repeat labs including repeat creatinine and hemoglobin. Patient was given morphine and Zofran here and does feel much more comfortable on reevaluation. Additionally the patient has an abdominal aortic aneurysm which is increased in size from prior imaging. He was advised of the need for follow-up in regards to this. ED Disposition - Plan for ED Patient: Disposition: Acute Care Hospital [facility] Diagnosis: NARENDRA (acute kidney injury), Rectus sheath hematoma Referrals: Emeka Horn MD [Primary Care Provider] -
[2019-09-19] VITALS (7 sets, daily range): BP systolic 135–184; BP diastolic 62–96; PULSE 62–77; RESP 16–24; TEMP 36.5–37.1; O2SAT 92–97; BMI 30.7; BMI 30.8
--- NOTE | 2019-09-19 | RAD_ITS ---
HISTORY: cough x 1.5 weeks EXAM: XR Chest 2 Views: COMPARISON: June 29, 2019 FINDINGS: # of images incl. paperwork: 2 Right clavicle fixation hardware with screws and plating is unchanged. Calcific plaque within the tortuous thoracic aorta is similar Left upper lobe benign calcified granuloma versus bone island within the posterior left sixth rib is present. I believe this is likely a granuloma. Heart is not enlarged. Thoracic spondylosis persists Pulmonary vascularity is distinct. No effusions. RAD/Chest PA and Lateral IMPRESSION: No acute cardiopulmonary disease perceived. at 0137 Reported and signed by: Huber Salamanca MD Electronically Signed: Huber Salamanca MD at 1:36 EST Tel , Service support ,
[2019-09-19 00:01] LABS: Absolute Neutrophil Count 11.6 X10^3/uL (2.0-7.7); Basophil# 0.02 X10^3/uL; Basophil% 0.1 % (0-1); Hematocrit 35.8 % (40-54); International Normalized Ratio 1.2; Lymphocyte % 8.9 % (19-41); Mean Corp Hgb Conc 36.3 g/dL (32-36); Mean Corpuscular Hgb 34.9 pg (27.0-32.0); Mean Corpuscular Volume 96.2 fL (80-94); Mean Platelet Vol. 10.4 fl (6.2-12.0); Monocyte# 0.54 X10^3/uL; NRBC Flagged by Analyzer 0 % (0-5); Neutrophil # 11.57 X10^3/uL (2.7-7.7); Neutrophil % 85.8 % (47-70); Platelet Count 379 K/mm3 (150-450); Prothrombin Time (Protime)PT. 14.5 SECONDS (11.7-14.9); RBC Distribution Width SD 41.1 fl (35.1-43.9); Red Blood Count 3.72 M/mm3 (4.6-6.2); White Blood Count 13.5 K/mm3 (4.4-11.0)
--- NOTE | 2019-09-19 00:10 | CT_ITS ---
HISTORY: LUQ and lt abdominal wall pain. Hx of AAA repair and 9 heart stents. On Plavix. Unable to give IV contrast d/t elev. creatinine of 2.01 TECHNIQUE: Helically acquired images were obtained of the abdomen and pelvis without oral or IV contrast. A radiation dose optimization technique was used for this scan. COMPARISON: CT angiogram from June 08, 2016 FINDINGS: # of images incl. paperwork: 466 LUNG BASES: Multiple nodules are present on the lung bases at the interface with the pleura. These are more cranial than were imaged on the axial images provided for the previous study. Benign calcified granuloma within the right middle lobe. Severe coronary artery calcific ASCVD likely with coronary artery stenting CT abdomen: Multilevel degenerative disc disease with facet arthropathy. Levoscoliosis. Good preservation of vertebral body height The gallbladder remains. Liver, spleen, pancreas, and adrenal glands are normal. Hypodense masses remain on both kidneys. These are better demonstrated previously on the contrasted study, are similar in size, and likely represent benign cysts. Mild renal atrophy without hydronephrosis or hydroureter. Central calcifications within the kidneys are perceived to be arterial vascular calcifications and not urothelial.. The aorta is continues to have a bulbous /eccentric aneurysm within the abdominal aorta just below the level of the renal arteries. This is similar to the previous study. At is level of the aortic diameter is 4.4 x 3.3 cm. On the 2015 study, I measure the outer and outer diameters of the abdominal aorta at this level to be 3.8 x 2.7 cm, suggesting that it has increased in size since that time. The left rectus abdominis muscle, beginning just below the ribs, and extending down almost to the level of the umbilicus is abnormally thickened, and this is new since the previous study. The anterior posterior thickness of the left rectus abdominis muscle on today's study is 5.5 cm. At the same level the thickness of the right rectus abdominis muscle is 8 mm. The tissue within the rectus abdominis muscle is hyperdense, consistent with coagulated blood. No hypodense central portion of the tissue is perceived. There is minimal induration of the subcutaneous fat anterior to the left rectus abdominis muscle. There is no intra-or extrahepatic biliary ductal dilatation. CT pelvis: No ascites is present. The the prostate gland is enlarged. The appendix is normal. Coronal series 601, image 75. The bladder is normal. Bowel gas pattern is normal. CT/Abdomen/Pelvis without Cont IMPRESSION: 4.4 x 3.3 x 14 cm in craniocaudal dimension left rectus abdominis muscle mass that is new since June 08, 2016. This most likely represents an intramuscular hematoma. Prostatic hypertrophy. Severe abdominal atherosclerotic disease with some surgical clips about the abdominal aorta. 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 On today's study it measures 4.4 x 3.3 cm. This is increased in size from 3.8 x 2.7 cm on the June 08, 2016 study. Individualized dose optimization techniques were used for this CT. at 2005 Reported and signed by: Huber Salamanca MD Electronically Signed: Huber Salamanca MD at 1:34 EST Tel , Service support ,
[2019-09-19] MEDS: Morphine 4 MG/ML Syringe IV (00:18)
[2019-09-19] MEDS: Ondansetron 4 MG/2 ML Vial IV (00:18)
[2019-09-19 00:42] LABS: Anion Gap 12 (5-15); BUN 30 mg/dL (7-18); BUN/Creat Ratio 14.9 RATIO (10-20); Calcium,Total 8.9 mg/dL (8.5-10.1); Chloride 99 mmol/L (98-107); Creatinine, Serum 2.01 mg/dL (0.70-1.30); EST Glomerular Filtration Rate 34 mL/min (>60); Est Glom Filt Rate - Afr Amer 41 mL/min (>60); Estimated Creatinine Clearance 27.41 ml/min; Glucose 363 mg/dL (74-106); Potassium 3.8 mmol/L (3.5-5.1); Sodium Level 138 mmol/L (136-145)
[2019-09-19] MEDS: 0.9% Normal Saline 1,000 ML 999 ML IV (02:01)
--- NOTE | 2019-09-19 02:01 | PCM.HP.STD ---
Problem List (1) URI (upper respiratory infection) Status: Acute (2) NARENDRA (acute kidney injury) Status: Acute (3) Rectus sheath hematoma Status: Acute History of Present Illness Date of Admission: 09/19/19 Chief Complaint: abdominal pain The patient is a 84 year old M with a significant history of CAD status post 9 coronary stent with last stent placed in 2007; aortic aneurysm; diabetes mellitus; obstructive sleep apnea and restless leg syndrome; CKD stage III who presented to emergency department with 2 to 3 days of abdominal pain. His pain is located in his left upper quadrant. He described the pain as sharp. The pain worsens with coughing. When he coughs the pain gets to an intensity of 10 out of 10. He denies any ameliorating factors. Also he has been taking prednisone and steroid upper URI symptoms that started 1/2 to 2 weeks ago. He describes her symptoms as rhinorrhea; postnasal drip and coughing. He has chronic shortness of breath that has not changed. Past Medical History Past Medical History (Chronic Problems): Chronic Problems (Last Reviewed 09/19/19 @ 05:45 by Coy Conway MD) Restless legs (Chronic) MARIXA (obstructive sleep apnea) (Chronic) Essential (primary) hypertension (Chronic) Claudication (Chronic) Atherosclerotic heart disease of [place] coronary artery without angina pectoris (Chronic) HLD (hyperlipidemia) (Chronic) Dyslipidemia (Chronic) PVD (peripheral vascular disease) (Chronic) Medical History: Medical History (Last Reviewed 09/19/19 @ 07:04 by Coy Conway MD) Essential (primary) hypertension (Chronic) I10 Claudication (Chronic) I73.9 Atherosclerotic heart disease of [place] coronary artery without angina pectoris (Chronic) I25.10 HLD (hyperlipidemia) (Chronic) E78.5 Dyslipidemia (Chronic) E78.5 PVD (peripheral vascular disease) (Chronic) I73.9 CKD (chronic kidney disease) stage 4, GFR 15-29 ml/min N18.4 COPD (chronic obstructive pulmonary disease) J44.9 Carotid bruit R09.89 DDD (degenerative disc disease), lumbar M51.36 DM2 (diabetes mellitus, type 2) E11.9 Daytime hypersomnia G47.19 MARIXA (obstructive sleep apnea) G47.33 Overweight E66.3 Restless legs syndrome G25.81 Seasonal allergies J30.2 Somatic dysfunction of pelvic region M99.05 Aortic aneurysm I71.9 Chest pain (Resolved) R07.9 Allergies cilostazol [From Pletal] Allergy (Verified 09/18/19 23:16) Unknown felodipine Allergy (Verified 09/18/19 23:16) Hives levofloxacin Allergy (Verified 09/18/19 23:16) Hives Sulfa (Sulfonamide Antibiotics) Allergy (Verified 09/18/19 23:16) Unknown Home Medications: Ambulatory Orders Medication Instructions Recorded Aspirin [Aspirin, Baby] 81 mg PO QHS 03/28/14 Isosorbide Mononitrate [Imdur] 30 mg PO DAILY 03/28/14 Pantoprazole Sodium [Protonix] 40 mg PO DAILY 03/28/14 metFORMIN HCl [Glucophage] 500 mg PO BID 03/28/14 ammonium lactate 12 % lotion 1 applic TOPICAL QD-BID PRN 02/06/18 montelukast 10 mg tablet 10 mg PO QPM 02/06/18 nitroglycerin 0.4 mg sublingual 0.4 mg SUBLINGUAL Q5-15M PRN 02/06/18 tablet triamcinolone acetonide 55 mcg 2 spray INTRANASAL DAILY 09/04/18 nasal spray aerosol ropinirole 0.5 mg tablet 0.5 mg PO QHS #60 tab 11/06/18 nifedipine ER 90 mg 90 mg PO DAILY #90 tab 12/04/18 tablet,extended release hydrochlorothiazide 25 mg tablet 25 mg PO DAILY #90 tab 03/26/19 losartan 100 mg tablet 100 mg PO DAILY #90 tab 03/27/19 carvedilol 6.25 mg tablet 6.25 mg PO BID #180 tab 05/07/19 ipratropium bromide 42 mcg (0.06 2 spray INTRANASAL TID #15 ml 05/07/19 %) nasal spray loratadine 10 mg capsule 10 mg PO QDAY #90 cap 08/31/19 prednisone 10 mg tablet 10 mg PO QDAY #30 tab 09/16/19 Atorvastatin Calcium [Lipitor] 40 mg PO QODAY 09/19/19 Azithromycin 250 mg PO DAILY 09/19/19 Clopidogrel Bisulfate [Clopidogrel] 75 mg PO DAILY 09/19/19 Surgical History: Surgical History (Last Reviewed 09/19/19 @ 07:04 by Coy Conway MD) History of coronary artery stent placement (Resolved) Onset Date: 02/17/08 Z95.5 MTL-Joyfe-IVY 1997; MBA-MFV-Otc-Distal RCA 02/17/2008 H/O aortic aneurysm repair Onset Date: 11/1998 Z98.890, Z86.79 History of endarterectomy Onset Date: 07/2018 Z98.890 right iliac History of hernia repair Z98.890, Z87.19 03/1999 History of left heart catheterization Onset Date: 03/2014 Z98.890 History of vascular surgery Onset Date: ~08/2018 Z98.890 Surgical History: herniorrhaphy, - - AAA repair Smoking Status: Former smoker Alcohol: Occasional - *Family History Paternal Family History: Family History (Last Reviewed 09/19/19 @ 05:45 by Coy Conway MD) Father Diabetes Cancer Review of Systems Constitutional: Denies: Chills, Fever, Weight Change HEENT: Reports: Nasal Congestion, Sinus Drainage. Denies: Head Aches Cardiovascular: Denies: Chest Pain, Palpitations Respiratory: Reports: Cough, Shortness of Breath - Chronic, Sputum production. Denies: Shortness of breath at rest, Wheezing Gastrointestinal: Denies: Abdominal Pain, Nausea, Vomiting Genitourinary: Denies: Dysuria Musculoskeletal: Denies: Joint Pain, Joint Tenderness Skin: Denies: Rash, Wounds Neurological: Denies: Numbness, Tingling, Focal weakness Psychiatric: Denies: Anxiety, Depression, Homicidal Ideations, Suicidal Ideations Hematologic/ Lymphatic: Denies: Easy Bruising, Easy Bleeding VTE Information - Inpt Only VTE Present on Admission: No VTE Mechan Device Prophylaxis: SCD's VTE Pharm Prophylaxis ordered?: No Patient Problems: Active and Suspected Problems (Last Reviewed 09/19/19 @ 05:45 by Coy Conway MD) NARENDRA (acute kidney injury) (Acute) Rectus sheath hematoma (Acute) URI (upper respiratory infection) (Acute) - Physical Exam Vitals/I&O's: Vital Signs Temp Pulse Resp BP Pulse Ox 98.3 F 77 18 169/84 H 95 09/18/19 23:12 09/19/19 01:01 09/19/19 01:01 09/19/19 01:01 09/19/19 01:01 Oxygen Delivery Method Room Air Weight: 91.8 kg Body Mass Index (BMI) 30.7 Finger Stick Blood Glucose 352 General: Alert, Oriented x3, Cooperative HEENT: Atraumatic, PERRLA, EOMI, Normocephalic Neck: Supple, Trachea Midline Lungs: Clear to auscultation, Normal air movement Cardiovascular: Regular rate, Normal S1, Normal S2, No murmurs Abdomen: Bowel Sounds Present, Soft, Tender - Left upper quadrants, - - Swelling of his left upper quadrant Extremities: No edema, Capillary Refill Less than 3 Seconds Skin: No rashes, No breakdown Musculoskeletal: No Tenderness to Palpation of Joints or Extremities Neurological: Cranial nerves II-XII grossly intact Psych/Mental Status: Normal Affect, Appropriate Laboratory Results 09/18/19 23:23: POC Glucose 352 H 09/18/19 23:32: WBC 13.5 H, RBC 3.72 L, Hgb 13.0, Hct 35.8 L, MCV 96.2 H, MCH 34.9 H, MCHC 36.3 H, RDW Std Deviation 41.1, RDW Coeff of Justin 12.0, Plt Count 379, MPV 10.4, Immature Gran % (Auto) 1.200 H, Neut % (Auto) 85.8 H, Lymph % (Auto) 8.9 L, [place] % (Auto) 4.0, Eos % (Auto) 0.0, Baso % (Auto) 0.1, Absolute Neuts (auto) 11.6 H, Absolute Lymphs (auto) 1.20, Nucleated RBC % 0 09/18/19 23:32: Sodium 138, Potassium 3.8, Chloride 99, Carbon Dioxide 27.0, Anion Gap 12, BUN 30 H, Creatinine 2.01 H, Estim Creat Clear Calc 27.41, Est GFR (MDRD) Af Amer 41 L, Est GFR (MDRD) Non-Af 34 L, BUN/Creatinine Ratio 14.9, Glucose 363 H, Calcium 8.9 09/18/19 23:32: PT 14.5, INR 1.2 Current Medications Sodium Chloride () 1,000 mls @ 999 mls/hr IV .Q1H1M ONE Stop: 09/19/19 02:54 Assessment/Plan All Active Problems (Last Reviewed 09/19/19 @ 05:45 by Coy Conway MD) Pre-syncope (Acute) Chest pain (Acute) NARENDRA (acute kidney injury) (Acute) Rectus sheath hematoma (Acute) URI (upper respiratory infection) (Acute) History of coronary artery stent placement (Resolved 02/17/08) Chest pain (Resolved) The patient is a 84 year old M with a significant history of CAD status post 9 coronary stent with last stent placed in 2007; aortic aneurysm; diabetes mellitus; obstructive sleep apnea and restless leg syndrome; CKD stage IV who presented to emergency department with 2 to 3 days of abdominal pain and found to have abdomen/pelvis CT finding of rectus sheath hematoma and enlarged abdominal aortic aneurysm compared to previous. Rectus sheath hematoma Recommended that emergency department doctor discussed the case with general surgery. Emergency department doctor discussed the case with general surgery, Dr. Paulson. Emergent department doctor reported that per Dr. Paulson patient can be watched at our hospital and General Surgery can see patient in consult. If patient deteriorates patient will need to be transferred. Vitals are stable. Trend H&H. Since patient last stent was placed in 2007 would hold aspirin and Plavix for now. Upper URI Symptoms Continue Z-Devon ordered from home. Continue steroid taper. Hypertension On presentation his blood pressure was not within goal Imdur continued. Carvedilol continued. Losartan and hydrochlorothiazide held secondary NARENDRA. Would add PRN hydralazine. Trend blood pressure and adjust blood pressure medications. NARENDRA CKD stage III Presentation his creatinine was 2.01. His baseline creatinine is around 1.14. BUN is steady. BUN over creatinine is 14.9. Received normal saline bolus in the emergency department. We will continue gentle IV hydration. Trend BMP. Avoid nephrotoxins. Abdominal aortic aneurysm Patient reports history of aortic aneurysm repair. Although his abdominal aortic aneurysm is enlarged pain abdomen and pelvis CT finding compared to previous is not critical at this point. Emergency department doctor and hospitalist recommended to patient to follow-up with his vascular surgeon. Diabetes mellitus with hyperglycemia. On presentation his glucose on BMP was way elevated. Metformin continued. Would add correction scale insulin. His elevation could be secondary steroids. Neutrophilic leukocytosis with bandemia: Likely secondary to upper URI and steroid use. On azithromycin which was continued. DVT Prophylaxis No chemical thromboprophylaxis. SCD ordered. Code Visit OBSV E&M: 74272 Initial observation care L3
[2019-09-19] MEDS: 0.9% Saline Lock 10 ML Syringe IV (04:59)
[2019-09-19] MEDS: 0.9% Normal Saline 1,000 ML 75 ML IV ×2 (04:59→17:50)
[2019-09-19] MEDS: Ipratropium Bromide 0.06% NASAL SPRAY 2 SPRAY NASAL ×3 (06:45→20:01)
[2019-09-19 06:55] LABS: Hematocrit 33.5 % (40-54); Hemoglobin 11.3 g/dL (13.0-16.5)
[2019-09-19 06:56] LABS: Bedside Glucose 175 mg/dL (70-110)
[2019-09-19] MEDS: Insulin Lispro 100 UNIT/ML INSULN.PEN SC ×4 (06:56→20:14)
[2019-09-19 07:35] LABS: Anion Gap 4 (5-15); BUN 28 mg/dL (7-18); BUN/Creat Ratio 17.3 RATIO (10-20); Calcium,Total 7.9 mg/dL (8.5-10.1); Chloride 103 mmol/L (98-107); Creatinine, Serum 1.62 mg/dL (0.70-1.30); EST Glomerular Filtration Rate 44 mL/min (>60); Est Glom Filt Rate - Afr Amer 53 mL/min (>60); Estimated Creatinine Clearance 34.01 ml/min; Glucose 187 mg/dL (74-106); Potassium 3.8 mmol/L (3.5-5.1); Sodium Level 138 mmol/L (136-145)
[2019-09-19] MEDS: Polyethylene Glycol 3350 17 GM PACKET PO (07:56)
[2019-09-19] MEDS: metFORMIN HCl 500 MG Tablet PO ×2 (07:57→17:09)
[2019-09-19] MEDS: Loratadine 10 MG Tablet PO (07:57)
[2019-09-19] MEDS: NIFEdipine 90 MG Tablet PO (07:57)
[2019-09-19] MEDS: Fluticasone 0.05% 1 SPRAY NASAL.SRY 2 SPRAY NASAL (07:57)
[2019-09-19] MEDS: predniSONE 10 MG Tablet PO ×3 (07:57→17:09)
[2019-09-19] MEDS: Pantoprazole Sodium 40 MG Tablet PO (07:57)
[2019-09-19] MEDS: Carvedilol 6.25 MG Tablet PO ×2 (07:58→20:03)
[2019-09-19] MEDS: Isosorbide Mononitrate 30 MG Tablet PO (07:58)
[2019-09-19] MEDS: Glucerna Shake 120 ML LIQUID PO ×2 (08:01→14:12)
--- NOTE | 2019-09-19 08:02 | NURSING ---
Sigrid MACIAS made aware that pt needs SCDS applied.
--- NOTE | 2019-09-19 09:03 | CON.PCM_ITS ---
Reason for Consult Date of Consultation: 09/19/19 History of Present Illness: The patient is a 84 year old M resented to the ER due to left-sided abdominal pain. CT abdomen pelvis showed a rectus sheath hematoma. Patient is on aspirin and Plavix at home secondary to cardiac stents last one in 2007 as well as a femoral endarterectomy about 2 to 3 years ago. Patient states that 2 to 3 days ago he had a lot of coughing which has now improved, but he did have increased amount of pain on the left side of his abdomen about 2 days ago he states that it got bigger all of a sudden it has stayed about the same size since then. Patient states that the coughing is improved as well as the abdominal pain. Patient's hemoglobin did drop from 13-11.3. Patient's creatinine did improve. Patient's aspirin and Plavix are currently held. Past Medical History Past Medical History (Chronic Problems): Chronic Problems (Last Reviewed 09/19/19 @ 07:04 by Coy Conway MD) Restless legs (Chronic) MARIXA (obstructive sleep apnea) (Chronic) Essential (primary) hypertension (Chronic) Claudication (Chronic) Atherosclerotic heart disease of [place] coronary artery without angina pectoris (Chronic) HLD (hyperlipidemia) (Chronic) Dyslipidemia (Chronic) PVD (peripheral vascular disease) (Chronic) Medical History: Medical History (Last Reviewed 09/19/19 @ 07:04 by Coy Conway MD) Essential (primary) hypertension (Chronic) I10 Claudication (Chronic) I73.9 Atherosclerotic heart disease of [place] coronary artery without angina pectoris (Chronic) I25.10 HLD (hyperlipidemia) (Chronic) E78.5 Dyslipidemia (Chronic) E78.5 PVD (peripheral vascular disease) (Chronic) I73.9 CKD (chronic kidney disease) stage 4, GFR 15-29 ml/min N18.4 COPD (chronic obstructive pulmonary disease) J44.9 Carotid bruit R09.89 DDD (degenerative disc disease), lumbar M51.36 DM2 (diabetes mellitus, type 2) E11.9 Daytime hypersomnia G47.19 MARIXA (obstructive sleep apnea) G47.33 Overweight E66.3 Restless legs syndrome G25.81 Seasonal allergies J30.2 Somatic dysfunction of pelvic region M99.05 Aortic aneurysm I71.9 Chest pain (Resolved) R07.9 Allergies cilostazol [From Pletal] Allergy (Verified 09/19/19 03:15) Unknown pt took a long time ago felodipine Allergy (Verified 09/18/19 23:16) Hives levofloxacin Allergy (Verified 09/18/19 23:16) Hives Sulfa (Sulfonamide Antibiotics) Allergy (Verified 09/18/19 23:16) Unknown Home Medications: Ambulatory Orders Medication Instructions Recorded Aspirin [Aspirin, Baby] 81 mg PO QHS 03/28/14 Isosorbide Mononitrate [Imdur] 30 mg PO DAILY 03/28/14 Pantoprazole Sodium [Protonix] 40 mg PO DAILY 03/28/14 metFORMIN HCl [Glucophage] 500 mg PO BID 03/28/14 ammonium lactate 12 % lotion 1 applic TOPICAL QD-BID PRN 02/06/18 montelukast 10 mg tablet 10 mg PO QPM 02/06/18 nitroglycerin 0.4 mg sublingual 0.4 mg SUBLINGUAL Q5-15M PRN 02/06/18 tablet triamcinolone acetonide 55 mcg 2 spray INTRANASAL DAILY 09/04/18 nasal spray aerosol ropinirole 0.5 mg tablet 0.5 mg PO QHS #60 tab 11/06/18 nifedipine ER 90 mg 90 mg PO DAILY #90 tab 12/04/18 tablet,extended release hydrochlorothiazide 25 mg tablet 25 mg PO DAILY #90 tab 03/26/19 losartan 100 mg tablet 100 mg PO DAILY #90 tab 03/27/19 carvedilol 6.25 mg tablet 6.25 mg PO BID #180 tab 05/07/19 ipratropium bromide 42 mcg (0.06 2 spray INTRANASAL TID #15 ml 05/07/19 %) nasal spray loratadine 10 mg capsule 10 mg PO QDAY #90 cap 08/31/19 prednisone 10 mg tablet 10 mg PO QDAY #30 tab 09/16/19 Atorvastatin Calcium [Lipitor] 40 mg PO QODAY 09/19/19 Azithromycin 250 mg PO DAILY 09/19/19 Clopidogrel Bisulfate [Clopidogrel] 75 mg PO DAILY 09/19/19 Surgical History: Surgical History (Last Reviewed 09/19/19 @ 07:04 by Coy Conway MD) History of coronary artery stent placement (Resolved) Onset Date: 02/17/08 Z95.5 UAC-Cnooh-WSM 1997; GHF-FOF-Qgp-Distal RCA 02/17/2008 H/O aortic aneurysm repair Onset Date: 11/1998 Z98.890, Z86.79 History of endarterectomy Onset Date: 07/2018 Z98.890 right iliac History of hernia repair Z98.890, Z87.19 03/1999 History of left heart catheterization Onset Date: 03/2014 Z98.890 History of vascular surgery Onset Date: ~08/2018 Z98.890 Surgical History: herniorrhaphy, - - AAA repair Smoking Status: Former smoker Tobacco Use: Cigarettes, Cigars, Pipe Alcohol: Occasional - *Family History Paternal Family History: Family History (Last Reviewed 09/19/19 @ 05:45 by Coy Conway MD) Father Diabetes Cancer Review of Systems Constitutional: Denies: Fever Eyes: Reports: Blurred vision - Occasionally with glasses HEENT: Denies: Difficulty Swallowing Cardiovascular: Denies: Chest Pain Respiratory: Reports: Shortness of Breath - With exercise Gastrointestinal: Reports: Abdominal Pain. Denies: Nausea, Vomiting Genitourinary: Denies: Dysuria Skin: Denies: Rash Neurological: Denies: Slurred speech Psychiatric: Denies: Anxiety, Depression Hematologic/ Lymphatic: Reports: Easy Bruising. Denies: Easy Bleeding Patient Problems: Active and Suspected Problems (Last Reviewed 09/19/19 @ 07:04 by Coy Conway MD) NARENDRA (acute kidney injury) (Acute) Rectus sheath hematoma (Acute) URI (upper respiratory infection) (Acute) - Physical Exam Vitals/I&O's: Vital Signs Temp Pulse Resp BP Pulse Ox 98.5 F 62 18 184/96 H 96 09/19/19 07:55 09/19/19 07:55 09/19/19 07:55 09/19/19 07:55 09/19/19 08:00 Oxygen Delivery Method Room Air Weight: 202 lb 6.15 oz Body Mass Index (BMI) 30.7 Finger Stick Blood Glucose 352 Intake and Output for Last 24 Hours 09/17/19 09/18/19 09/19/19 23:59 23:59 23:59 Intake Total 1000 / 1000 Balance 1000 / 1000 General: Alert, Oriented x3, Cooperative, No apparent distress HEENT: Atraumatic Lungs: Normal air movement Cardiovascular: Regular rate Abdomen: Soft, Tender - Mildly tender on the left side of abdomen, no peritoneal signs, - - Left side of abdomen more firm than the right with generalized bulge Extremities: No clubbing, No cyanosis, No edema Neurological: Cranial nerves II-XII grossly intact Psych/Mental Status: Normal Affect Laboratory Results 09/18/19 23:23: POC Glucose 352 H 09/18/19 23:32: WBC 13.5 H, RBC 3.72 L, Hgb 13.0, Hct 35.8 L, MCV 96.2 H, MCH 34.9 H, MCHC 36.3 H, RDW Std Deviation 41.1, RDW Coeff of Justin 12.0, Plt Count 379, MPV 10.4, Immature Gran % (Auto) 1.200 H, Neut % (Auto) 85.8 H, Lymph % (Auto) 8.9 L, [place] % (Auto) 4.0, Eos % (Auto) 0.0, Baso % (Auto) 0.1, Absolute Neuts (auto) 11.6 H, Absolute Lymphs (auto) 1.20, Nucleated RBC % 0 09/18/19 23:32: Sodium 138, Potassium 3.8, Chloride 99, Carbon Dioxide 27.0, Anion Gap 12, BUN 30 H, Creatinine 2.01 H, Estim Creat Clear Calc 27.41, Est GFR (MDRD) Af Amer 41 L, Est GFR (MDRD) Non-Af 34 L, BUN/Creatinine Ratio 14.9, Glucose 363 H, Calcium 8.9 09/18/19 23:32: PT 14.5, INR 1.2 09/19/19 06:35: Hgb 11.3 L, Hct 33.5 L 09/19/19 06:35: Sodium 138, Potassium 3.8, Chloride 103, Carbon Dioxide 31.0, Anion Gap 4 L, BUN 28 H, Creatinine 1.62 H, Estim Creat Clear Calc 34.01, Est GFR (MDRD) Af Amer 53 L, Est GFR (MDRD) Non-Af 44 L, BUN/Creatinine Ratio 17.3, Glucose 187 H, Calcium 7.9 L 09/19/19 06:51: POC Glucose 175 H Current Medications Atorvastatin Calcium (Lipitor) 40 mg PO QODAY@2200 AMMY Azithromycin (Zithromax) 250 mg PO DAILY@1800 AMMY Carvedilol (Coreg) 6.25 mg PO BID [facility] Last Admin: 09/19/19 07:58 Dose: 6.25 mg Documented by: Fluticasone Propionate (Flonase Nasal [place]) 2 spray NASAL DAILY [facility] Last Admin: 09/19/19 07:57 Dose: 2 spray Documented by: Glucagon () 1 mg IM .X1 PRN PRN Reason: Hypoglycemia Hydralazine HCl (Apresoline Iv) 10 mg IV Q4H PRN PRN PRN Reason: SBP > 160 Dextrose (Dextrose 10%-Water) 250 mls @ 999 mls/hr IV X1 PRN; Protocol PRN Reason: HYPOGLYCEMIA Sodium Chloride () 1,000 mls @ 75 mls/hr IV .[id number] [facility] Last Admin: 09/19/19 04:59 Dose: 75 mls/hr Documented by: Insulin Human Lispro (Humalog Kwikpen (Bkc)) 0 unit SC ACHS [facility]; Protocol Last Admin: 09/19/19 06:56 Dose: 1 units Documented by: Ipratropium [place] (Atrovent Nasal [place] (G)) 2 spray NASAL TID [facility] Last Admin: 09/19/19 06:45 Dose: 2 spray Documented by: Isosorbide Mononitrate (Imdur) 30 mg PO DAILY [facility] Last Admin: 09/19/19 07:58 Dose: 30 mg Documented by: Lactic Acid (Lac-Hydrin, Amlactin) 1 applic TOPICAL BID PRN PRN; Protocol PRN Reason: dry skin Loratadine (Claritin) 10 mg PO DAILY [facility] Last Admin: 09/19/19 07:57 Dose: 10 mg Documented by: Metformin HCl (Glucophage) 500 mg PO BIDCM [facility] Last Admin: 09/19/19 07:57 Dose: 500 mg Documented by: Montelukast Sodium (Singulair) 10 mg PO QPM [facility] Nifedipine (Procardia Xl) 90 mg PO DAILY [facility] Last Admin: 09/19/19 07:57 Dose: 90 mg Documented by: Nutritional Formula (Lactose Free) (Glucerna Shake) 120 ml PO 4X/DAY [facility] Last Admin: 09/19/19 08:01 Dose: 120 ml Documented by: Ondansetron HCl (Zofran) 4 mg IV Q8H PRN PRN PRN Reason: NAUSEA/VOMITING Oxycodone HCl (Oxyir) 5 mg PO Q4H PRN PRN PRN Reason: PAIN 4-10/10 Pantoprazole Sodium (Protonix) 40 mg PO DAILY [facility] Last Admin: 09/19/19 07:57 Dose: 40 mg Documented by: Polyethylene Glycol (Miralax) 17 gm PO DAILY [facility] Last Admin: 09/19/19 07:56 Dose: 17 gm Documented by: Pramipexole Dihydrochloride (Mirapex) 0.25 mg PO QHS [facility] Prednisone () 10 mg PO TIDCM [facility] Stop: 09/21/19 17:01 Last Admin: 09/19/19 07:57 Dose: 10 mg Documented by: [facility] () [facility] Stop: 09/23/19 17:01 [facility] () [facility] Stop: 09/26/19 08:01 Sodium Chloride () 10 - 40 ml IV UD PRN PRN Reason: SALINE FLUSH Last Admin: 09/19/19 04:59 Dose: 10 ml Documented by: Assessment/Plan All Active Problems (Last Reviewed 09/19/19 @ 07:04 by Coy Conway MD) Pre-syncope (Acute) Chest pain (Acute) NARENDRA (acute kidney injury) (Acute) Rectus sheath hematoma (Acute) URI (upper respiratory infection) (Acute) History of coronary artery stent placement (Resolved 02/17/08) Chest pain (Resolved) 84-year-old male with rectus sheath hematoma. 1. We will continue to monitor hemoglobin down to 11.3 from 13 however patient did state that this area got large all of a sudden and has not gotten any larger over the past 2 days. Currently aspirin Plavix are held. Did discuss with Dr. Rincon, and will look into see how long we should hold Plavix with his history of femoral endarterectomy 2 to 3 years ago. If patient's hemoglobin remains fairly stable possible discharge today. Kasia Paulson M.D. Pager: [phone] [facility] [address] [place] [address], [facility], [address] [place] [address] Office: [phone] Code Visit Inpatient E&M: 51125 Init Hosp L2
[2019-09-19 12:07] LABS: Hematocrit 32.9 % (40-54)
[2019-09-19 12:15] LABS: Bedside Glucose 237 mg/dL (70-110)
--- NOTE | 2019-09-19 12:42 | PN_ITS ---
Patient Problems: Active and Suspected Problems (Last Reviewed 09/19/19 @ 07:04 by Coy Conway MD) NARENDRA (acute kidney injury) (Acute) Rectus sheath hematoma (Acute) URI (upper respiratory infection) (Acute) Reason for Visit: Rectus sheath hematoma, NARENDRA Subjective: Patient was seen and examined. Denied any chest pain or dizziness. Abdominal pain is manageable. Denied any nausea or vomiting. No acute events overnight. Objective: Physical exam: General: Alert, Oriented x3, Cooperative HEENT: Atraumatic, PERRLA, EOMI, Normocephalic Neck: Supple, Trachea Midline Lungs: Clear to auscultation, Normal air movement Cardiovascular: Regular rate, Normal S1, Normal S2, No murmurs Abdomen: Bowel Sounds Present, Soft, Tender - Left upper quadrants, - - Swelling of his left upper quadrant Extremities: No edema, Capillary Refill Less than 3 Seconds Skin: No rashes, No breakdown Musculoskeletal: No Tenderness to Palpation of Joints or Extremities Neurological: Cranial nerves II-XII grossly intact Psych/Mental Status: Normal Affect, Appropriate Vitals/I&O's: Vital Signs Temp Pulse Resp BP Pulse Ox 98.5 F 62 18 184/96 H 96 09/19/19 07:55 09/19/19 07:55 09/19/19 07:55 09/19/19 07:55 09/19/19 08:00 Oxygen Delivery Method Room Air Weight: 91.8 kg Body Mass Index (BMI) 30.7 Finger Stick Blood Glucose 352 Intake and Output for Last 24 Hours 09/17/19 09/18/19 09/19/19 23:59 23:59 23:59 Intake Total 1400 / 1400 Balance 1400 / 1399 Laboratory Results 09/18/19 23:23: POC Glucose 352 H 09/18/19 23:32: WBC 13.5 H, RBC 3.72 L, Hgb 13.0, Hct 35.8 L, MCV 96.2 H, MCH 34.9 H, MCHC 36.3 H, RDW Std Deviation 41.1, RDW Coeff of Justin 12.0, Plt Count 379, MPV 10.4, Immature Gran % (Auto) 1.200 H, Neut % (Auto) 85.8 H, Lymph % (Auto) 8.9 L, [place] % (Auto) 4.0, Eos % (Auto) 0.0, Baso % (Auto) 0.1, Absolute Neuts (auto) 11.6 H, Absolute Lymphs (auto) 1.20, Nucleated RBC % 0 09/18/19 23:32: Sodium 138, Potassium 3.8, Chloride 99, Carbon Dioxide 27.0, Anion Gap 12, BUN 30 H, Creatinine 2.01 H, Estim Creat Clear Calc 27.41, Est GFR (MDRD) Af Amer 41 L, Est GFR (MDRD) Non-Af 34 L, BUN/Creatinine Ratio 14.9, Glucose 363 H, Calcium 8.9 09/18/19 23:32: PT 14.5, INR 1.2 09/19/19 06:35: Hgb 11.3 L, Hct 33.5 L 09/19/19 06:35: Sodium 138, Potassium 3.8, Chloride 103, Carbon Dioxide 31.0, Anion Gap 4 L, BUN 28 H, Creatinine 1.62 H, Estim Creat Clear Calc 34.01, Est GFR (MDRD) Af Amer 53 L, Est GFR (MDRD) Non-Af 44 L, BUN/Creatinine Ratio 17.3, Glucose 187 H, Calcium 7.9 L 09/19/19 06:51: POC Glucose 175 H 09/19/19 11:39: POC Glucose 237 H 09/19/19 11:42: Hgb 11.0 L, Hct 32.9 L Current Medications Atorvastatin Calcium (Lipitor) 40 mg PO QODAY@2200 [facility] Azithromycin (Zithromax) 250 mg PO DAILY@1800 [facility] Carvedilol (Coreg) 6.25 mg PO BID [facility] Last Admin: 09/19/19 07:58 Dose: 6.25 mg Documented by: Fluticasone Propionate (Flonase Nasal [place]) 2 spray NASAL DAILY [facility] Last Admin: 09/19/19 07:57 Dose: 2 spray Documented by: Glucagon () 1 mg IM .X1 PRN PRN Reason: Hypoglycemia Hydralazine HCl (Apresoline Iv) 10 mg IV Q4H PRN PRN PRN Reason: SBP > 160 Dextrose (Dextrose 10%-Water) 250 mls @ 999 mls/hr IV X1 PRN; Protocol PRN Reason: HYPOGLYCEMIA Sodium Chloride () 1,000 mls @ 75 mls/hr IV .[id number] [facility] Last Admin: 09/19/19 04:59 Dose: 75 mls/hr Documented by: Insulin Human Lispro (Humalog Kwikpen (Bkc)) 0 unit SC ACHS [facility]; Protocol Last Admin: 09/19/19 11:41 Dose: 3 units Documented by: Ipratropium [place] (Atrovent Nasal [place] (G)) 2 spray NASAL TID [facility] Last Admin: 09/19/19 06:45 Dose: 2 spray Documented by: Isosorbide Mononitrate (Imdur) 30 mg PO DAILY [facility] Last Admin: 09/19/19 07:58 Dose: 30 mg Documented by: Lactic Acid (Lac-Hydrin, Amlactin) 1 applic TOPICAL BID PRN PRN; Protocol PRN Reason: dry skin Loratadine (Claritin) 10 mg PO DAILY [facility] Last Admin: 09/19/19 07:57 Dose: 10 mg Documented by: Metformin [facility] (Glucophage) [facility] Last Admin: 09/19/19 07:57 Dose: 500 mg Documented by: Montelukast Sodium (Singulair) 10 mg PO QPM [facility] Nifedipine (Procardia Xl) 90 mg PO DAILY [facility] Last Admin: 09/19/19 07:57 Dose: 90 mg Documented by: Nutritional Formula (Lactose Free) (Glucerna Shake) 120 ml PO 4X/DAY [facility] Last Admin: 09/19/19 08:01 Dose: 120 ml Documented by: Ondansetron HCl (Zofran) 4 mg IV Q8H PRN PRN PRN Reason: NAUSEA/VOMITING Oxycodone HCl (Oxyir) 5 mg PO Q4H PRN PRN PRN Reason: PAIN 4-10/10 Pantoprazole Sodium (Protonix) 40 mg PO DAILY [facility] Last Admin: 09/19/19 07:57 Dose: 40 mg Documented by: Polyethylene Glycol (Miralax) 17 gm PO DAILY [facility] Last Admin: 09/19/19 07:56 Dose: 17 gm Documented by: Pramipexole Dihydrochloride (Mirapex) 0.25 mg PO QHS [facility] Prednisone () 10 mg PO TIDCM [facility] Stop: 09/21/19 17:01 Last Admin: 09/19/19 11:42 Dose: 10 mg Documented by: Prednisone () 10 mg PO BIDCM [facility] Stop: 09/23/19 17:01 Prednisone () 10 mg PO DAILYCM [facility] Stop: 09/26/19 08:01 Sodium Chloride () 10 - 40 ml IV UD PRN PRN Reason: SALINE FLUSH Last Admin: 09/19/19 04:59 Dose: 10 ml Documented by: Medical Necessity - Tobacco Use Smoking Status: Former smoker Tobacco Use: Cigarettes, Cigars, Pipe Assessment/Plan All Active Problems (Last Reviewed 09/19/19 @ 07:04 by Coy Conway MD) Pre-syncope (Acute) Chest pain (Acute) NARENDRA (acute kidney injury) (Acute) Rectus sheath hematoma (Acute) URI (upper respiratory infection) (Acute) History of coronary artery stent placement (Resolved 02/17/08) Chest pain (Resolved) 1. Rectus sheath hematoma, seen on CT abd/pelvis, stable H& H On aspirin, off Plavix after discussion with his vascular surgeon by general surgery 2. Hypertension, uncontrolled, continue on carvedilol, Imdur Off losartan and hydrochlorothiazide on account of NARENDRA Continue on PRN hydralazine 3. NARENDRA CKD stage III, Creatinine improved to 1.62 from 2.01 Baseline creatinine is around 1.14. Labs in am 4. Recent URI, improving, continue on a Z-Devon and steroid taper 5. Abdominal aortic aneurysm, stable, vascular surgery follow-up recommended Will keep BP controlled 6.Type 2 DM with hyperglycemia, BS are uncontrolled, Will check HgbA1c, continue with med-high dose ISS 7. DVT PPx- SCDs Code Visit Inpatient E&M: 80617 Subs Hosp L2
[2019-09-19 14:46] LABS: Hemoglobin A1c 7.3 % (4.2-6.3)
[2019-09-19] MEDS: amLODIPine 5 MG Tablet PO (15:01)
[2019-09-19 17:15] LABS: Bedside Glucose 183 mg/dL (70-110)
[2019-09-19] MEDS: Azithromycin 250 MG Tablet PO (17:18)
[2019-09-19] MEDS: Atorvastatin Calcium 40 MG Tablet PO (20:03)
[2019-09-19] MEDS: Pramipexole Di-HCl 0.25 MG Tablet PO (20:04)
[2019-09-19] MEDS: Montelukast 10 MG Tablet PO (20:08)
[2019-09-19 20:21] LABS: Bedside Glucose 237 mg/dL (70-110)
[2019-09-20] VITALS (8 sets, daily range): BP systolic 135–195; BP diastolic 68–120; PULSE 73–86; RESP 16–18; TEMP 36.8–37.2; O2SAT 94–98
[2019-09-20] MEDS: hydrALAZINE 20 MG/ML Vial 10 MG IV (03:51)
[2019-09-20 06:46] LABS: Bedside Glucose 164 mg/dL (70-110)
[2019-09-20] MEDS: Insulin Lispro 100 UNIT/ML INSULN.PEN SC (06:49)
[2019-09-20] MEDS: 0.9% Normal Saline 1,000 ML 75 ML IV (06:51)
[2019-09-20 07:00] LABS: Anion Gap 4 (5-15); BUN 23 mg/dL (7-18); BUN/Creat Ratio 20.9 RATIO (10-20); Calcium,Total 8.6 mg/dL (8.5-10.1); Chloride 102 mmol/L (98-107); EST Glomerular Filtration Rate 68 mL/min (>60); Est Glom Filt Rate - Afr Amer 82 mL/min (>60); Estimated Creatinine Clearance 50.09 ml/min; Glucose 161 mg/dL (74-106); Potassium 3.8 mmol/L (3.5-5.1); Sodium Level 136 mmol/L (136-145)
[2019-09-20 07:18] LABS: Absolute Lymphocyte Count 2.38 X10^3/uL (0.83-4.51); Absolute Neutrophil Count 10.1 X10^3/uL (2.0-7.7); Basophil# 0.03 X10^3/uL; Basophil% 0.2 % (0-1); Eosinophil# 0.02 X10^3/uL; Eosinophils% 0.1 % (0-5); Hematocrit 33.2 % (40-54); Hemoglobin 10.9 g/dL (13.0-16.5); Lymphocyte # 2.38 X10^3/ul (4.0); Lymphocyte % 17.5 % (19-41); Mean Corp Hgb Conc 32.8 g/dL (32-36); Mean Corpuscular Hgb 30.4 pg (27.0-32.0); Mean Corpuscular Volume 92.7 fL (80-94); Mean Platelet Vol. 10.8 fl (6.2-12.0); Monocyte# 0.77 X10^3/uL; Monocyte% 5.7 % (0-10); NRBC Flagged by Analyzer 0 % (0-5); Neutrophil # 10.12 X10^3/uL (2.7-7.7); Neutrophil % 74.4 % (47-70); Platelet Count 284 K/mm3 (150-450); RBC Distribution Width CV 12.3 % (11.6-14.6); RBC Distribution Width SD 41.6 fl (35.1-43.9); Red Blood Count 3.58 M/mm3 (4.6-6.2); White Blood Count 13.6 K/mm3 (4.4-11.0)
[2019-09-20] MEDS: predniSONE 10 MG Tablet PO (08:19)
[2019-09-20] MEDS: metFORMIN HCl 500 MG Tablet PO (08:19)
[2019-09-20] MEDS: NIFEdipine 90 MG Tablet PO (08:23)
[2019-09-20] MEDS: Isosorbide Mononitrate 30 MG Tablet PO (08:25)
--- NOTE | 2019-09-20 09:48 | DCINST_ITS ---
- Discharge Diagnoses Current Active Problems: Current Active and Chronic Problems (Last Reviewed 09/19/19 @ 07:04 by Coy Conway MD) NARENDRA (acute kidney injury) (Acute) Rectus sheath hematoma (Acute) URI (upper respiratory infection) (Acute) Reason(s) for Visit for Discharge Instructions: Abdominal pain You will use the following diet at home:: Cardiac Your food should be the consistency of: Regular Your liquids should be the consistency of: Regular/Thin Discharge Activity: Return to Normal Activity Additional Instructions: Take note of changes to your medications. You should take your blood pressure daily. Show a log of your blood pressure to your doctor. Let your doctor know if your blood pressure remains more than 140/90 persistently so changes can be made to your medications. You need to repeat your kidney test within 1 week. Your previous medications - hydrochlorothiazide and Losartan may need to be resumed. You are on aspirin only. Allergies/Adverse Reactions: Allergies cilostazol [From Pletal] Allergy (Verified 09/19/19 03:15) Unknown pt took a long time ago felodipine Allergy (Verified 09/18/19 23:16) Hives levofloxacin Allergy (Verified 09/18/19 23:16) Hives Sulfa (Sulfonamide Antibiotics) Allergy (Verified 09/18/19 23:16) Unknown Medications to take at Discharge Aspirin [Aspirin, Baby] 81 mg PO QHS 03/28/14 Isosorbide Mononitrate [Imdur] 30 mg PO DAILY 03/28/14 Pantoprazole Sodium [Protonix] 40 mg PO DAILY 03/28/14 metFORMIN HCl [Glucophage] 500 mg PO BID 03/28/14 ammonium lactate 12 % lotion 1 applic TOPICAL QD-BID PRN 02/06/18 montelukast 10 mg tablet 10 mg PO QPM 02/06/18 nitroglycerin 0.4 mg sublingual tablet 0.4 mg SUBLINGUAL Q5-15M PRN 02/06/18 triamcinolone acetonide 55 mcg nasal spray aerosol 2 spray INTRANASAL DAILY 09/04/18 ropinirole 0.5 mg tablet 0.5 mg PO QHS #60 tab 11/06/18 nifedipine ER 90 mg tablet,extended release 90 mg PO DAILY #90 tab 12/04/18 ipratropium bromide 42 mcg (0.06 %) nasal spray 2 spray INTRANASAL TID #15 ml 05/07/19 loratadine 10 mg capsule 10 mg PO QDAY #90 cap 08/31/19 prednisone 10 mg tablet 10 mg PO QDAY #30 tab 09/16/19 Atorvastatin Calcium [Lipitor] 40 mg PO QODAY 09/19/19 Azithromycin 250 mg PO DAILY 09/19/19 Carvedilol [Coreg (Beta Elisha)] 12.5 mg PO BID #60 tab 09/20/19 hydrALAZINE [Apresoline] 25 mg PO BID #60 tab 09/20/19 The following prescriptions were given: hydrALAZINE [Apresoline] 25 mg PO BID #60 tab Transmission Status: [id number] Carvedilol [Coreg (Beta Elisha)] 12.5 mg PO BID #60 tab Transmission Status: [id number] Orders to be completed after discharge: Basic Metabolic Profile (BMP) Time Frame: 1 Week, Facility: [facility], Location: Laboratory Primary Care Physician: Emeka Horn MD [Primary Care Provider] - Please follow up with your Primary Care Physician in: within 1-2 weeks Test Results: Test results from this visit will be discussed in further detail at your follow- up appointment, if applicable. Please Follow Up With: Nabil Pierre MD When: as scheduled Proposed Discharge Date: 09/20/19
[2019-09-20] MEDS: Carvedilol 12.5 MG Tablet PO (09:55)
[2019-09-20] MEDS: hydrALAZINE 25 MG Tablet PO (09:55)
--- NOTE | 2019-09-20 09:55 | DS.PCM_ITS ---
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 at 0137 Reported and signed by: Huber Salamanca MD Electronically Signed: Huber Salamanca MD at 1:36 EST Tel , Service support , Abdomen/Pelvis CT 09/19/19 00:10 IMPRESSION: 4.4 x 3.3 x 14 cm in craniocaudal dimension left rectus abdominis muscle mass that is new since June 08, 2016. This most likely represents an intramuscular hematoma. Prostatic hypertrophy. Severe abdominal atherosclerotic disease with some surgical clips about the abdominal aorta. 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 On today's study it measures 4.4 x 3.3 cm. This is increased in size from 3.8 x 2.7 cm on the June 08, 2016 study. Individualized dose optimization techniques were used for this CT. at 0135 Reported and signed by: Huber Salamanca MD Electronically Signed: Huber Salamanca MD at 1:34 EST Tel , Service support , General surgery Operations: None Procedures: None Summary of Care Provided: The patient is a 84 year old M with past medical history of CAD status post stent, aortic aneurysm, type II DM, MARIXA, who was admitted with 2 to 3 days of abdominal pain, located in his left upper quadrant, worse with coughing. He had a recent upper respiratory illness and was started on prednisone as well as Z- Devon. He had a CAT scan done in the emergency department that was suggestive of left rectus sheath hematoma. Patient's initial hemoglobin was 13.0 and patient was monitored in hospital. His hemoglobin dropped to 13.3 and repeat hemoglobin was 11.0. He was kept on aspirin and his Plavix was stopped. Patient also had acute kidney injury on admission that improved with IV fluids and withholding of his hydrochlorothiazide as well as losartan. His blood pressures well controlled in the hospital and he was managed on hydrochlorothiazide as well as an increased dose of carvedilol. He knows to monitor his blood pressure daily. He will keep himself hydrated. He will follow-up with his primary care doctor within a week with repeat blood work to check on his kidney function. He would call his primary care doctor her blood pressures persistently above 140. Subjective: On the day of discharge, patient was seen and examined. Denied any new complaints. [place] improved. Objective: Physical exam: General: Alert, Oriented x3, Cooperative HEENT: Atraumatic, PERRLA, EOMI, Normocephalic Neck: Supple, Trachea Midline Lungs: Clear to auscultation, Normal air movement Cardiovascular: Regular rate, Normal S1, Normal S2, No murmurs Abdomen: Bowel Sounds Present, Soft, Tender - Left upper quadrants, - - Swelling of his left upper quadrant Extremities: No edema, Capillary Refill Less than 3 Seconds Skin: No rashes, No breakdown Musculoskeletal: No Tenderness to Palpation of Joints or Extremities Neurological: Cranial nerves II-XII grossly intact Psych/Mental Status: Normal Affect, Appropriate - Physical Exam Vitals/I&O's: Vital Signs Temp Pulse Resp BP Pulse Ox 98.2 F 78 18 155/120 H 98 09/20/19 09:30 09/20/19 09:30 09/20/19 09:30 09/20/19 09:30 09/20/19 09:30 Oxygen Delivery Method Room Air Weight: 91.8 kg Body Mass Index (BMI) 30.7 Finger Stick Blood Glucose 352 Intake and Output for Last 24 Hours 09/18/19 09/19/19 09/20/19 23:59 23:59 23:59 Intake Total 3208.75 / 3208.75 1200 / 1200 Balance 3208.75 / 3208.75 1200 / 1200 Laboratory Results 09/19/19 06:35: Hemoglobin A1c 7.3 H 09/19/19 11:39: POC Glucose 237 H 09/19/19 11:42: Hgb 11.0 L, Hct 32.9 L 09/19/19 17:06: POC Glucose 183 H 09/19/19 20:12: POC Glucose 237 H 09/20/19 05:05: WBC 13.6 H, RBC 3.58 L, Hgb 10.9 L, Hct 33.2 L, MCV 92.7, MCH 30.4, MCHC 32.8, RDW Std Deviation 41.6, RDW Coeff of Justin 12.3, Plt Count 284, MPV 10.8, Immature Gran % (Auto) 2.100 H, Neut % (Auto) 74.4 H, Lymph % (Auto) 17.5 L, [place] % (Auto) 5.7, Eos % (Auto) 0.1, Baso % (Auto) 0.2, Absolute Neuts (auto) 10.1 H, Absolute Lymphs (auto) 2.38, Nucleated RBC % 0 09/20/19 05:05: Sodium 136, Potassium 3.8, Chloride 102, Carbon Dioxide 30.0, Anion Gap 4 L, BUN 23 H, Creatinine 1.10, Estim Creat Clear Calc 50.09, Est GFR (MDRD) Af Amer 82, Est GFR (MDRD) Non-Af 68, BUN/Creatinine Ratio 20.9 H, Glucose 161 H, Calcium 8.6 09/20/19 06:14: POC Glucose 164 H Current Medications Atorvastatin Calcium (Lipitor) 40 mg PO QODAY@2200 [facility] Last Admin: 09/19/19 20:03 Dose: 40 mg Documented by: Azithromycin (Zithromax) 250 mg PO DAILY@1800 [facility] Last Admin: 09/19/19 17:18 Dose: 250 mg Documented by: Carvedilol (Coreg) 12.5 mg PO BID [facility] Fluticasone Propionate (Flonase Nasal [place]) 2 spray NASAL DAILY [facility] Last Admin: 09/19/19 07:57 Dose: 2 spray Documented by: Glucagon () 1 mg IM .X1 PRN PRN Reason: Hypoglycemia Hydralazine HCl (Apresoline Iv) 10 mg IV Q4H PRN PRN PRN Reason: SBP > 160 Last Admin: 09/20/19 03:51 Dose: 10 mg Documented by: Hydralazine HCl (Apresoline) 25 mg PO BID [facility] Dextrose (Dextrose 10%-Water) 250 mls @ 999 mls/hr IV X1 PRN; Protocol PRN Reason: HYPOGLYCEMIA Insulin Human Lispro (Humalog Kwikpen (Bkc)) 0 unit SC [facility]; Protocol Last Admin: 09/20/19 06:49 Dose: 2 units Documented by: Ipratropium [place] (Atrovent Nasal [place] (G)) 2 spray NASAL TID [facility] Last Admin: 09/20/19 06:33 Dose: Not Given Documented by: Isosorbide Mononitrate (Imdur) 30 mg PO DAILY [facility] Last Admin: 09/20/19 08:25 Dose: 30 mg Documented by: Lactic Acid (Lac-Hydrin, Amlactin) 1 applic TOPICAL BID PRN PRN; Protocol PRN Reason: dry skin Loratadine (Claritin) 10 mg PO DAILY [facility] Last Admin: 09/19/19 07:57 Dose: 10 mg Documented by: Met[facility] ([facility]) [facility] Last Admin: 09/20/19 08:19 Dose: 500 mg Documented by: Montelukast Sodium (Singulair) 10 mg PO QPM [facility] Last Admin: 09/19/19 20:08 Dose: 10 mg Documented by: Nifedipine (Procardia Xl) 90 mg PO DAILY [facility] Last Admin: 09/20/19 08:23 Dose: 90 mg Documented by: Ondansetron HCl (Zofran) 4 mg IV Q8H PRN PRN PRN Reason: NAUSEA/VOMITING Oxycodone HCl (Oxyir) 5 mg PO Q4H PRN PRN PRN Reason: PAIN 4-10/10 Pantoprazole Sodium (Protonix) 40 mg PO DAILY [facility] Last Admin: 09/19/19 07:57 Dose: 40 mg Documented by: Polyethylene Glycol (Miralax) 17 gm PO DAILY [facility] Last Admin: 09/19/19 07:56 Dose: 17 gm Documented by: Pramipexole Dihydrochloride (Mirapex) 0.25 mg PO QHS [facility] Last Admin: 09/19/19 20:04 Dose: 0.25 mg Documented by: Prednisone () 10 mg PO TIDCM [facility] Stop: 09/21/19 17:01 Last Admin: 09/20/19 08:19 Dose: 10 mg Documented by: [facility] () [facility] Stop: 09/23/19 17:01 Pred[facility] () [facility] Stop: 09/26/19 08:01 Sodium Chloride () 10 - 40 ml IV UD PRN PRN Reason: SALINE FLUSH Last Admin: 09/19/19 04:59 Dose: 10 ml Documented by: Discharge Diet: Low fat/ Low Cholesterol, 2000 mg Sodium Diet Discharge Activity: Return to Normal Activity Home Medications: Medications to take at Discharge Aspirin [Aspirin, Baby] 81 mg PO QHS 03/28/14 Isosorbide Mononitrate [Imdur] 30 mg PO DAILY 03/28/14 Pantoprazole Sodium [Protonix] 40 mg PO DAILY 03/28/14 metFORMIN HCl [Glucophage] 500 mg PO BID 03/28/14 ammonium lactate 12 % lotion 1 applic TOPICAL QD-BID PRN 02/06/18 montelukast 10 mg tablet 10 mg PO QPM 02/06/18 nitroglycerin 0.4 mg sublingual tablet 0.4 mg SUBLINGUAL Q5-15M PRN 02/06/18 triamcinolone acetonide 55 mcg nasal spray aerosol 2 spray INTRANASAL DAILY 09/04/18 ropinirole 0.5 mg tablet 0.5 mg PO QHS #60 tab 11/06/18 nifedipine ER 90 mg tablet,extended release 90 mg PO DAILY #90 tab 12/04/18 ipratropium bromide 42 mcg (0.06 %) nasal spray 2 spray INTRANASAL TID #15 ml 05/07/19 loratadine 10 mg capsule 10 mg PO QDAY #90 cap 08/31/19 prednisone 10 mg tablet 10 mg PO QDAY #30 tab 09/16/19 Atorvastatin Calcium [Lipitor] 40 mg PO QODAY 09/19/19 Azithromycin 250 mg PO DAILY 09/19/19 Carvedilol [Coreg (Beta Elisha)] 12.5 mg PO BID #60 tab 09/20/19 hydrALAZINE [Apresoline] 25 mg PO BID #60 tab 09/20/19 Following Prescrptions Were Given to Patient: hydrALAZINE [Apresoline] 25 mg PO BID #60 tab Transmission Status: [id number] Carvedilol [Coreg (Beta Elisha)] 12.5 mg PO BID #60 tab Transmission Status: [id number] Other Amb Orders: Basic Metabolic Profile (BMP) Time Frame: 1 Week, Facility: [facility], Location: Laboratory Primary Care Physician: Emeka Horn MD [Primary Care Provider] - Please follow up with your Primary Care Physician in: within 1-2 weeks Please Follow Up With: Nabil Pierre MD When: as scheduled Disposition: Home Minutes spent on discharge:: 40 Patient Condition:: Stable Medical Necessity - Tobacco Use Smoking Status: Former smoker Tobacco Use: Cigarettes, Cigars, Pipe Meaningful Use Info Meaningful Use Diagnoses (Choose all that apply): None applicable Code Visit OBSV E&M: 14397 Observation care discharge
[2019-09-20] MEDS: Loratadine 10 MG Tablet PO (09:56)
[2019-09-20] MEDS: Pantoprazole Sodium 40 MG Tablet PO (09:56)
[2019-09-20] MEDS: Polyethylene Glycol 3350 17 GM PACKET PO (09:56)
== END 2019-09-20 11:15 | disposition home or self-care (01) ==
LOC: ED 09-19 02:01 → MS3 09-19 02:53
PROVIDERS: Admitting Provider Hospitalist; Emergency Provider Emergency Medicine; Family Provider Internal Medicine; PCP Internal Medicine; Visit Provider Internal Medicine
DX: S30.1XXA Contusion of abdominal wall, initial encounter (principal); X58.XXXA Exposure to other specified factors, initial encounter; Y93.9 Activity, unspecified; Y92.9 Unspecified place or not applicable; R06.09 Other forms of dyspnea; N17.9 Acute kidney failure, unspecified; J06.9 Acute upper respiratory infection, unspecified; G47.33 Obstructive sleep apnea (adult) (pediatric); G25.81 Restless legs syndrome; E11.22 Type 2 diabetes mellitus with diabetic chronic kidney disease; I12.9 Hypertensive chronic kidney disease with stage 1 through stage 4 chronic kidney disease, or unspecified chronic kidney disease; E78.5 Hyperlipidemia, unspecified; I25.10 Atherosclerotic heart disease of native coronary artery without angina pectoris; I71.4 Abdominal aortic aneurysm, without rupture; E11.51 Type 2 diabetes mellitus with diabetic peripheral angiopathy without gangrene; M99.05 Segmental and somatic dysfunction of pelvic region; N18.4 Chronic kidney disease, stage 4 (severe); Z87.891 Personal history of nicotine dependence; Z79.899 Other long term (current) drug therapy; Z79.82 Long term (current) use of aspirin; Z79.84 Long term (current) use of oral hypoglycemic drugs; Z79.52 Long term (current) use of systemic steroids; Z79.02 Long term (current) use of antithrombotics/antiplatelets; E11.65 Type 2 diabetes mellitus with hyperglycemia; D72.828 Other elevated white blood cell count
CPT/HCPCS: 36415; 71046; 74176; 80048; 82962; 83036; 85014; 85018; 85025; 85610; 96361; 96374; 96375; 97162; 97165; 97802; 99218; 99285; J7030; A4216; G0378; J2405

== ENCOUNTER → 2019-09-24 13:05 | Outpatient (CLI) | payer MEDICARE, SELFPAY ==
[2019-09-24 08:20] VITALS: BMI 30.7
[2019-09-24 14:02] LABS: Anion Gap 6 (5-15); BUN 23 mg/dL (7-18); BUN/Creat Ratio 16.8 RATIO (10-20); Calcium,Total 8.7 mg/dL (8.5-10.1); Chloride 102 mmol/L (98-107); Creatinine, Serum 1.37 mg/dL (0.70-1.30); EST Glomerular Filtration Rate 53 mL/min (>60); Est Glom Filt Rate - Afr Amer 64 mL/min (>60); Glucose 216 mg/dL (74-106); Potassium 4.3 mmol/L (3.5-5.1); Sodium Level 138 mmol/L (136-145)
[2019-09-24 14:13] LABS: Hematocrit 35.5 % (40-54); Hemoglobin 11.5 g/dL (13.0-16.5); Mean Corp Hgb Conc 32.4 g/dL (32-36); Mean Corpuscular Volume 95.7 fL (80-94); Mean Platelet Vol. 10.6 fl (6.2-12.0); Platelet Count 390 K/mm3 (150-450); RBC Distribution Width CV 12.9 % (11.6-14.6); RBC Distribution Width SD 43.8 fl (35.1-43.9); Red Blood Count 3.71 M/mm3 (4.6-6.2); White Blood Count 18.4 K/mm3 (4.4-11.0)
== END ==
PROVIDERS: Family Provider Internal Medicine; PCP Internal Medicine; Referring Provider Nurse Practitioner; Visit Provider Nurse Practitioner
DX: D64.9 Anemia, unspecified (principal); N17.9 Acute kidney failure, unspecified
CPT/HCPCS: 80048; 85027

== ENCOUNTER 2019-09-26 07:06 | Emergency (ER) | payer MEDICARE, SELFPAY ==
[2019-09-24 08:20] VITALS: BMI 30.7
[2019-09-26 07:08] VITALS: BP 158/88; PULSE 97; RESP 23; TEMP 36.7; O2SAT 97; BMI 29.0
--- NOTE | 2019-09-26 07:22 | RAD_ITS ---
STUDY: X-RAY CHEST REASON FOR EXAM: Male, 84 years old. COUGH, SOB TECHNIQUE: Cough. COMPARISON: 19 September 2019 FINDINGS: There is hyperinflation of the lungs consistent with chronic obstructive lung disease (COPD). There is no demonstrated pleural abnormality. Normal size heart. Normal mediastinum and frank. Normal visualized pulmonary arteries. There is atherosclerotic calcification of the aortic arch with tortuosity. Normal visualized thoracic spine. Normal visualized ribs, clavicles, and shoulders. There is no demonstrated abnormality of the visualized soft tissue structures of the upper abdomen. RAD/Chest PA and Lateral IMPRESSION: COPD related changes with no evidence of new focal airspace disease in comparison with 19 September 2019. Underlying COPD exacerbation is not excluded. Electronically Signed: Lc Chawla DO at 8:45 EST , Service support ,
--- NOTE | 2019-09-26 07:22 | EKG12_ITS ---
Test Reason : Blood Pressure : / mmHG Vent. Rate : 093 BPM Atrial Rate : 093 BPM P-R Int : 180 ms QRS Dur : 086 ms QT Int : 366 ms P-R-T Axes : 001 017 063 degrees QTc Int : 455 ms Sinus rhythm with occasional Premature ventricular complexes and Premature atrial complexes Otherwise normal ECG Confirmed by RIA SMITH, VICTORIANO ([id number]), primer expeditor and drier SP VIVEROS ([id number]) on 09/28/2019 1:39:54 PM Referred By: Confirmed By:VICTORIANO ROLLINS MD
--- NOTE | 2019-09-26 07:25 | ED.VISSUMM ---
- ER Visit Summary Date of Service: 09/26/19 Chief Complaint: Cough, shortness of breath, nausea, vomiting History of Present Illness: The patient is a 84 M who presents with cough and shortness of breath that is been getting worse over the past week. Patient also started with some nausea and vomiting today. Patient was recently treated for pneumonia with Zithromax. Patient was started on Augmentin yesterday. Patient started with nausea and vomiting today. Patient thinks it is related to the Augmentin. Patient denies any fevers or chills. Patient denies any chest pain or palpitations. Patient denies any hematemesis or coffee-ground emesis. Patient states his emesis is just stomach contents. Patient denies any diarrhea, melena, or hematochezia. Physical Examination: Vital signs are stable except for mild tachypnea of 24. Patient is afebrile. Patient is in no acute distress. Oral mucosa is pink and moist. Neck is supple. Trachea is midline. There is no JVD. Heart was regular rate and rhythm with frequent ectopics. Lungs showed scattered rhonchi. There is good respiratory effort noted. Abdomen is soft. Bowel sounds are normal. There is no tenderness. There is some ecchymosis noted over the abdomen. (Patient had a rectus sheath hematoma on his last hospitalization earlier this month). Cranial nerves II through XII are intact. There are no focal motor or sensory deficits noted. Extremities are intact. There is no calf tenderness or edema. Test Results: EKG showed sinus rhythm with a rate of 93. There were PVCs and PACs noted. There are no acute ST or T wave changes. This was unchanged compared to previous EKG dated 06/29/2019. PA and lateral chest x-ray shows COPD related changes but no acute infiltrate. CBC shows a leukocytosis of 18.0. Basic metabolic profile shows a glucose of 203. Troponin was normal. Emergency Department Course and Treatment: Patient was given a DuoNeb aerosol here. Patient was resting comfortably here in the emergency department on reevaluation. His leukocytosis and hyperglycemia are most likely related to his prednisone treatment. Patient states he feels unsteady when he walks. Patient was ambulated here in the emergency department with a pulse oximeter. Patient was able to ambulate without difficulty. Patient's pulse oximeter readings remained normal. We will have the patient stop his Augmentin since it is probably causing his nausea and vomiting. Patient was given a prescription for Omnicef to take instead of the Augmentin since he is allergic to Levaquin and sulfa. Patient was instructed to use his walker at home. Patient was instructed to follow-up with his primary care physician in 3 to 5 days. Patient understood and was agreeable with the plan. All questions were answered. Disposition: Discharge home Impression: COPD exacerbation This note was generated with [employer] dictation software. It may contain incorrect words, spelling, and punctuation that were not noted in review of the chart prior to signing ED Disposition - Plan for ED Patient: Disposition: Home or Assisted Living Diagnosis: COPD exacerbation Instructions: Copd Flare Prescriptions: Cefdinir [Omnicef [equiv]] 300 mg PO Q12H #20 cap Prescription Printed Referrals: Emeka Horn MD [Primary Care Provider] - 3-5 Days Additional Instructions: Stop taking the Augmentin. It is most likely causing your nausea and vomiting. Follow-up with your primary care physician in 2 to 3 days. Use your walker to help with getting around at home.
[2019-09-26] MEDS: Ipratropium/Albuterol Sulfate 3 ML AMPUL.NEB INHALATION (07:40)
[2019-09-26 07:42] VITALS: PULSE 97; RESP 20
[2019-09-26 07:45] LABS: Absolute Neutrophil Count 16.4 X10^3/uL (2.0-7.7); Basophil# 0.05 X10^3/uL; Basophil% 0.3 % (0-1); Eosinophil# 0.05 X10^3/uL; Eosinophils% 0.3 % (0-5); Hematocrit 40.9 % (40-54); Hemoglobin 13.6 g/dL (13.0-16.5); Lymphocyte % 3.3 % (19-41); Mean Corp Hgb Conc 33.3 g/dL (32-36); Mean Corpuscular Hgb 31.1 pg (27.0-32.0); Mean Corpuscular Volume 93.6 fL (80-94); Mean Platelet Vol. 10.1 fl (6.2-12.0); Monocyte# 0.71 X10^3/uL; Monocyte% 3.9 % (0-10); NRBC Flagged by Analyzer 0 % (0-5); Neutrophil # 16.36 X10^3/uL (2.7-7.7); Neutrophil % 90.8 % (47-70); POSITIVE DIFFERENTIAL YES; Platelet Count 383 K/mm3 (150-450); RBC Distribution Width CV 13.2 % (11.6-14.6); Red Blood Count 4.37 M/mm3 (4.6-6.2)
[2019-09-26 07:49] LABS: Differential Indicated SCAN CRITERIA MET
[2019-09-26 08:01] LABS: Anion Gap 8 (5-15); BUN 22 mg/dL (7-18); BUN/Creat Ratio 16.9 RATIO (10-20); Calcium,Total 8.6 mg/dL (8.5-10.1); Chloride 97 mmol/L (98-107); EST Glomerular Filtration Rate 56 mL/min (>60); Est Glom Filt Rate - Afr Amer 68 mL/min (>60); Estimated Creatinine Clearance 45.24 ml/min; Glucose 203 mg/dL (74-106); Potassium 4.2 mmol/L (3.5-5.1); Sodium Level 134 mmol/L (136-145)
[2019-09-26 08:03] LABS: Differential Comment SCANNED
[2019-09-26 08:45] VITALS: BP 114/88; PULSE 94; RESP 16; O2SAT 95
[2019-09-26 09:47] VITALS: O2SAT 95
[2019-09-26 10:00] VITALS: BP 125/90; PULSE 89; RESP 16; O2SAT 95
== END 2019-09-26 10:09 | disposition home or self-care (01) ==
PROVIDERS: Emergency Provider Emergency Medicine; Family Provider Internal Medicine; PCP Internal Medicine
DX: J44.1 Chronic obstructive pulmonary disease with (acute) exacerbation (principal); I49.3 Ventricular premature depolarization; I49.1 Atrial premature depolarization; S30.1XXA Contusion of abdominal wall, initial encounter; X58.XXXA Exposure to other specified factors, initial encounter; Y93.9 Activity, unspecified; Y92.9 Unspecified place or not applicable; E11.9 Type 2 diabetes mellitus without complications; I10 Essential (primary) hypertension; K21.9 Gastro-esophageal reflux disease without esophagitis; G25.81 Restless legs syndrome; Z87.01 Personal history of pneumonia (recurrent); Z79.84 Long term (current) use of oral hypoglycemic drugs; Z79.82 Long term (current) use of aspirin; Z79.899 Other long term (current) drug therapy
CPT/HCPCS: 71046; 80048; 84484; 85025; 87633; 93005; 94640; 99285; A4216

== ENCOUNTER → 2019-10-28 11:28 | Outpatient (CLI) | payer MEDICARE, SELFPAY ==
[2019-09-28 10:51] VITALS: BMI 29.0
--- NOTE | 2019-10-28 11:55 | RAD_ITS ---
STUDY: X-RAY - PELVIS AND BILATERAL HIPS REASON FOR EXAM: Hip pain with walking and back pain on and off for 2 years, no specific injury. TECHNIQUE: AP view of the pelvis.? 2 views of the right hip, and 2 views of the left hip were obtained. COMPARISON: Radiograph 09/18/2011. FINDINGS: There is vascular calcification. There are surgical clips in the right groin. There is a bone donor site in the right iliac wing. Otherwise, unremarkable bilateral iliac wings, sacroiliac joints and visualized sacrum. Normal bilateral superior and inferior pubic rami. Normal pubic symphysis. Normal bilateral ischial tuberosities. Normal visualized right femoral head. Normal right acetabulum. There is mild joint space narrowing of the superior medial right hip joint. Normal visualized left femoral head. Normal left acetabulum. There is mild joint space narrowing of the superior medial left hip joint. RAD/Hips B/L min 2 views w/ Pelvis IMPRESSION: Mild bilateral hip arthrosis. Electronically Signed: Tom Miranda MD at 12:54 EST Tel , Service support ,
== END ==
PROVIDERS: PCP Internal Medicine; Referring Provider Anesthesiology Pain Medicine; Visit Provider Anesthesiology Pain Medicine
DX: M25.559 Pain in unspecified hip (principal)
CPT/HCPCS: 73521

== ENCOUNTER → 2019-12-09 08:06 | Outpatient (CLI) | payer MEDICARE, SELFPAY ==
[2019-11-23 13:04] VITALS: BMI 29.0
--- NOTE | 2019-12-09 08:16 | CT_ITS ---
STUDY: CT MAXILLOFACIAL SINUSES REASON FOR EXAM: Male, 84 years old. PT STATED PERSISTENT MUCUS IN THROAT, DOMINIC RICHARDSON RADIATION DOSAGE (If Supplied By Facility): CTDIvol = ( 33.06 ) mGy, DLP = ( 825.58 ) mGycm TECHNIQUE: The patient was scanned in a multi detector CT scanner. High resolution axial imaging was performed without the administration of intravenous contrast material. Sagittal and coronal images were reconstructed. Individualized dose optimization techniques were used for this CT. COMPARISON: None. FINDINGS: FRONTAL SINUSES: Normal aeration, without mucosal inflammatory disease. ETHMOIDAL SINUSES: Normal aeration, without mucosal inflammatory disease. MAXILLARY SINUSES: Normal aeration, without mucosal inflammatory disease. SPHENOIDAL SINUSES: Normal aeration, without mucosal inflammatory disease. There is patency of the bilateral maxillary infundibuli with normal uncinate processes, ethmoid bullae, and hiatus semilunaris. Normal bilateral middle turbinates. There is hypertrophy of the left inferior nasal turbinate. There is a right sided nasal septal deviation with a right sided nasal septal spur. There is patency of the bilateral nasal airways. The visualized osseous structures are normal. The visualized bilateral orbital contents are normal. Atherosclerotic calcification of the cavernous portions of the internal carotid arteries bilaterally. CT/Sinus/Facial Bone IMPRESSION: Nasal septal deviation towards the right side with a bony spur. Hypertrophy of the left inferior turbinate. Electronically Signed: Yemi Clifton, at 15:21 EST , Service support ,
== END ==
PROVIDERS: PCP Internal Medicine; Referring Provider Otolaryngology; Visit Provider Otolaryngology
DX: J32.0 Chronic maxillary sinusitis (principal)
CPT/HCPCS: 70486

== ENCOUNTER → 2020-02-10 15:16 | Outpatient (CLI) | payer MEDICARE, SELFPAY ==
[2019-11-23 13:04] VITALS: BMI 29.0
[2020-02-10 16:55] LABS: Thyroid Stim Hormone (TSH) 2.32 uIU/mL (0.358-3.74)
[2020-02-10 17:01] LABS: Microalbumin:Creatinine Ratio 420.5 mg/g CRE (<30 mg/g CRE)
[2020-02-10 18:57] LABS: Hemoglobin A1c 7.3 % (4.2-6.3)
== END ==
PROVIDERS: PCP Internal Medicine; Referring Provider Internal Medicine; Visit Provider Internal Medicine
DX: E11.49 Type 2 diabetes mellitus with other diabetic neurological complication (principal); Z79.899 Other long term (current) drug therapy
CPT/HCPCS: 82043; 82570; 83036; 84443

== ENCOUNTER → 2020-03-02 12:46 | Outpatient (CLI) | payer MEDICARE, SELFPAY ==
[2019-11-23 13:04] VITALS: BMI 29.0
[2020-03-02 15:48] LABS: AST(SGOT) 20 U/L (15-37); Alanine Aminotransfer ALT/SGPT 25 U/L (16-61); Albumin, Serum 3.8 g/dL (3.2-5.0); Alkaline Phosphatase 60 U/L (45-117); Bilirubin, Direct 0.19 mg/dL (0.00-0.30); Cholesterol 118 mg/dL (200); Globulin 3.7 g/dL (2.2-4.2); High Density Lipoprotein 33 mg/dL; Protein, Total 7.5 g/dL (6.4-8.2); Triglycerides 108 mg/dL; Very Low Density Lipoprotein 22 mg/dL (5-40)
== END ==
PROVIDERS: PCP Internal Medicine; Referring Provider Internal Medicine Cardiovascular Disease; Visit Provider Internal Medicine Cardiovascular Disease
DX: E78.5 Hyperlipidemia, unspecified (principal); E78.00 Pure hypercholesterolemia, unspecified
CPT/HCPCS: 36415; 80061; 80076

== ENCOUNTER → 2020-05-03 13:49 | Outpatient (CLI) | payer MEDICARE, SELFPAY ==
[2020-05-03 13:11] VITALS: BMI 29.0
[2020-05-03 15:30] LABS: Anion Gap 5 (5-15); BUN 29 mg/dL (7-18); BUN/Creat Ratio 23.2 RATIO (10-20); Calcium,Total 9.6 mg/dL (8.5-10.1); Chloride 101 mmol/L (98-107); Creatinine, Serum 1.25 mg/dL (0.70-1.30); EST Glomerular Filtration Rate 59 mL/min (>60); Est Glom Filt Rate - Afr Amer 71 mL/min (>60); Glucose 165 mg/dL (74-106); Potassium 4.1 mmol/L (3.5-5.1); Sodium Level 136 mmol/L (136-145)
== END ==
PROVIDERS: PCP Internal Medicine; Referring Provider Internal Medicine Cardiovascular Disease; Visit Provider Internal Medicine Cardiovascular Disease
DX: I12.9 Hypertensive chronic kidney disease with stage 1 through stage 4 chronic kidney disease, or unspecified chronic kidney disease (principal); N18.4 Chronic kidney disease, stage 4 (severe)
CPT/HCPCS: 36415; 80048

== ENCOUNTER → 2020-07-20 13:04 | Outpatient (CLI) | payer MEDICARE, SELFPAY ==
[2020-05-30 10:47] VITALS: BMI 29.0
[2020-07-20 13:46] LABS: Hemoglobin A1c 6.7 % (3.8-5.6)
== END ==
PROVIDERS: PCP Internal Medicine; Visit Provider Internal Medicine
DX: E11.49 Type 2 diabetes mellitus with other diabetic neurological complication (principal)
CPT/HCPCS: 83036

== ENCOUNTER → 2020-09-02 12:51 | Outpatient (CLI) | payer MEDICARE, SELFPAY ==
[2020-05-30 10:47] VITALS: BMI 29.0
[2020-09-02 15:06] LABS: AST(SGOT) 17 U/L (15-37); Alanine Aminotransfer ALT/SGPT 29 U/L (16-61); Albumin, Serum 3.6 g/dL (3.2-5.0); Alkaline Phosphatase 54 U/L (45-117); Bilirubin, Direct 0.11 mg/dL (0.00-0.30); Cholesterol 131 mg/dL (200); Globulin 3.7 g/dL (2.2-4.2); High Density Lipoprotein 35 mg/dL; Protein, Total 7.3 g/dL (6.4-8.2); Triglycerides 105 mg/dL; Very Low Density Lipoprotein 21 mg/dL (5-40)
== END ==
PROVIDERS: PCP Internal Medicine; Referring Provider Internal Medicine Cardiovascular Disease; Visit Provider Internal Medicine Cardiovascular Disease
DX: E78.00 Pure hypercholesterolemia, unspecified (principal); E78.5 Hyperlipidemia, unspecified
CPT/HCPCS: 36415; 80061; 80076

== ENCOUNTER → 2020-12-29 08:46 | Outpatient (CLI) | payer MEDICARE, SELFPAY ==
[2020-11-29 10:52] VITALS: BMI 28.3
--- NOTE | 2020-12-29 08:50 | ECHOD_ITS ---
Reason For Study: SOB Procedure This was a 2D Doppler, Color Flow transthoracic echocardiogram. Exam performed in department. Left Ventricle Normal LV size. Mild concentric left ventricular hypertrophy. Left ventricular systolic function is normal. The estimated ejection fraction is 65 %. No regional wall motion abnormalities noted. Right Ventricle Normal RV size. Normal systolic function. Atria Normal left atrium. Normal right atrium. Mitral Valve There is mild mitral annular calcification. Tricuspid Valve Normal tricuspid valve. Mild tricuspid valve insufficiency. Aortic Valve Normal aortic valve. Trisinus/trileaflet aortic valve. Pulmonic Valve Normal pulmonic valve. Great Vessels Normal aortic root. The pulmonary artery is normal size. Normal inferior vena cava. Pericardium/Pleural No pericardial effusion. MMode/2D Measurements & Calculations LVIDd: 4.1 cm IVSd: 1.3 cm Ao root diam: 3.2 cm LVIDs: 2.7 cm LVPWd: 1.3 cm RVDd: 3.3 cm FS: 33.4 % LAV(MOD-bp): 62.8 ml LA A4 area: 17.8 cm2 LA dimension(2D): 4.4 cm LAV(MOD-bp) Indexed: 30.4 ml/m2 LAV(MOD-sp2): 75.2 ml LAV(MOD-sp4): 47.3 ml RA A4 area: 13.9 cm2 Doppler Measurements & Calculations MV E max juaquin: 67.5 cm/sec Lat Peak E' Juaquin: 4.3 cm/sec Med Peak E' Juaquin: 4.5 cm/sec MV A max juaquin: 92.8 cm/sec E/E' lat: 15.8 E/E' med: 15.1 MV E/A: 0.73 Ao V2 max: 109.9 cm/sec LV V1 max: 93.9 cm/sec PA V2 max: 74.9 cm/sec Ao max P.8 mmHg LV V1 max P.5 mmHg TR max juaquin: 241.4 cm/sec TR max P.3 mmHg Interpretation Summary Normal LV size. Mild concentric left ventricular hypertrophy. Left ventricular systolic function is normal. The estimated ejection fraction is 65 %. Ordering Physician: Denise Cruz Referring Physician: Emeka Horn M.D. Performed By: Alana Abebe RDCS
--- NOTE | 2020-12-30 10:14 | PFT ---
INTRODUCTION: The patient is an 85-year-old male that presents for pulmonary function studies secondary to a diagnosis of shortness of breath. Respiratory therapy reports good patient effort. Bronchodilators were used during testing. INTERPRETATION: Forced expiration spirometry demonstrates the presence of a moderately severe large airways obstructive ventilatory defect. There was no significant response to aerosolized bronchodilators. Spirograms are of good quality and plateau gradually indicating slumping of the lungs. Body plethysmography was performed and reveals an elevated RV to 148% of predicted, indicative of underlying air trapping. Diffusing capacity by single breath CO is reduced at 50% of predicted. IMPRESSION: Irreversible moderately severe large airways obstructive ventilatory defect with associated air trapping and symmetric reduction in diffusing capacity.
== END ==
PROVIDERS: PCP Internal Medicine; Referring Provider Nurse Practitioner Acute Care; Visit Provider Nurse Practitioner Acute Care
DX: R06.02 Shortness of breath (principal); R06.00 Dyspnea, unspecified
CPT/HCPCS: 93306; 94060; 94726; 94729

== ENCOUNTER → 2021-01-03 11:09 | Outpatient (CLI) | payer MEDICARE, SELFPAY ==
[2020-11-29 10:52] VITALS: BMI 28.3
[2021-01-03 11:46] VITALS: PULSE 65; PULSE 66; PULSE 71; PULSE 73; PULSE 75; PULSE 76; PULSE 77; PULSE 78; O2SAT 93; O2SAT 94; O2SAT 95; O2SAT 96
--- NOTE | 2021-01-03 14:01 | PCM.PSN.6M ---
PSN 6 Minute Walk Test - 6 Minute Walk Test 6 Minute Walk Test: 6 Minute Walk Test PSN:6-Minute Walk Test Start: 01/03/21 11:46 Freq: Status: Active Protocol: [id number].6MINW Document 01/03/21 11:46 [facility] (Rec: 01/03/21 11:52 [facility] [id number]) 6 Minute Walk Test Date Performed 01/03/21 Time Performed 11:15 Height 5 ft 10 in Weight: 90.718 kg Weight in Pounds 200.[address]: Denise Cruz [employer] Assistive device used: Walker Pre-test Oxygen Delivery Method Room Air Pulse Ox (%) 95 Pulse Rate (60-100 beats/min) 65 Dyspnea Skyler Scale (0-10) 2 1st minute Oxygen Delivery Method Room Air Pulse Ox (%) 95 Pulse Rate (60-100 beats/min) 71 Dyspnea Skyler Scale (0-10) 3 Number of Rests Taken 0 Reported Symptoms Increased Work of Breathing 2nd minute Oxygen Delivery Method Room Air Pulse Ox (%) 94 Pulse Rate (60-100 beats/min) 73 Dyspnea Skyler Scale (0-10) 3 Number of Rests Taken 0 Reported Symptoms Increased Work of Breathing 3rd minute Oxygen Delivery Method Room Air Pulse Ox (%) 93 Pulse Rate (60-100 beats/min) 75 Dyspnea Skyler Scale (0-10) 4 Number of Rests Taken 0 Reported Symptoms Increased Work of Breathing 4th minute Oxygen Delivery Method Room Air Pulse Ox (%) 93 Pulse Rate (60-100 beats/min) 76 Dyspnea Skyler Scale (0-10) 4 Number of Rests Taken 0 Reported Symptoms Increased Work of Breathing 5th minute Oxygen Delivery Method Room Air Pulse Ox (%) 93 Pulse Rate (60-100 beats/min) 78 Dyspnea Skyler Scale (0-10) 4 Number of Rests Taken 0 Reported Symptoms Increased Work of Breathing 6th minute Oxygen Delivery Method Room Air Pulse Ox (%) 93 Pulse Rate (60-100 beats/min) 77 Dyspnea Skyler Scale (0-10) 4 Number of Rests Taken 0 Reported Symptoms Increased Work of Breathing Post-test Oxygen Delivery Method Room Air Pulse Ox (%) 96 Pulse Rate (60-100 beats/min) 66 Dyspnea Skyler Scale (0-10) 2 Full Laps Walked 9 Partial Lap, Number of Tiles Walked 24 Total Distance Walked (ft) 555 - Interpretation Interpretation: The patient was able to ambulate 555 feet over the course of 6 minutes on room air with the assistance of a wheeled walker, but no breaks. The patient experienced no significant desaturation or tachycardia. These findings are consistent with a musculoskeletal limitation exercise tolerance. - Recommendations Recommendations: No supplemental oxygen is indicated at this time.
== END ==
PROVIDERS: PCP Internal Medicine; Referring Provider Nurse Practitioner Acute Care; Visit Provider Nurse Practitioner Acute Care
DX: R06.02 Shortness of breath (principal)
CPT/HCPCS: 94618

== ENCOUNTER → 2021-03-27 13:41 | Outpatient (CLI) | payer MEDICARE, SELFPAY ==
[2021-02-27 08:51] VITALS: BMI 29.1
[2021-03-27 15:39] LABS: AST(SGOT) 25 U/L (15-37); Alanine Aminotransfer ALT/SGPT 35 U/L (16-61); Albumin, Serum 3.5 g/dL (3.2-5.0); Alkaline Phosphatase 56 U/L (45-117); Bilirubin, Direct 0.15 mg/dL (0.00-0.30); Cholesterol 125 mg/dL (200); High Density Lipoprotein 37 mg/dL; Protein, Total 7.5 g/dL (6.4-8.2); Triglycerides 116 mg/dL; Very Low Density Lipoprotein 23 mg/dL (5-40)
== END ==
PROVIDERS: PCP Internal Medicine; Referring Provider Internal Medicine Cardiovascular Disease; Visit Provider Internal Medicine Cardiovascular Disease
DX: E78.00 Pure hypercholesterolemia, unspecified (principal); E78.5 Hyperlipidemia, unspecified
CPT/HCPCS: 36415; 80061; 80076

== ENCOUNTER → 2021-07-06 15:27 | Outpatient (CLI) | payer MEDICARE, SELFPAY ==
[2021-07-06 16:53] LABS: Hemoglobin A1c 6.8 % (3.8-5.6)
[2021-07-06 17:07] LABS: Microalbumin:Creatinine Ratio 630.5 mg/g CRE (<30 mg/g CRE)
== END ==
PROVIDERS: PCP Internal Medicine; Referring Provider Internal Medicine; Visit Provider Internal Medicine
DX: E11.49 Type 2 diabetes mellitus with other diabetic neurological complication (principal)
CPT/HCPCS: 82043; 82570; 83036

== ENCOUNTER → 2021-09-25 14:28 | Outpatient (CLI) | payer MEDICARE, SELFPAY ==
--- NOTE | 2021-09-25 14:29 | VDLE_ITS ---
Reason For Study: Swelling RIGHT GSV is normal. CFV is compressible, spontaneous, phasic, competent and demonstrates normal augmentation. FV is compressible, spontaneous, phasic, competent and demonstrates normal augmentation. POP V is compressible, spontaneous, phasic, competent and demonstrates normal augmentation. T/P Trunk is compressible. PTV is compressible. RT PerV is compressible. Procedure This is a venous duplex using B-mode, color flow and spectral Doppler. Exam performed in department. A preliminary report was called and/or faxed to [facility]. VL/Venous Duplex US, Unilateral Interpretation Summary There is no evidence of right lower extremity deep vein thrombosis. Right great saphenous vein appears patent and compressible segmentally. Ordering Physician: Nallely Wiggins Referring Physician: Emeka Horn M.D. Performed By: Tessa Crowell RVT
== END ==
PROVIDERS: PCP Internal Medicine
DX: M79.89 Other specified soft tissue disorders (principal)
CPT/HCPCS: 93971

== ENCOUNTER 2021-10-31 23:10 | Emergency (ER) | payer MEDICARE, SELFPAY ==
[2021-10-31 23:11] VITALS: BP 229/101; PULSE 81; RESP 20; TEMP 36.1; O2SAT 95; BMI 28.7
[2021-10-31 23:15] VITALS: BP 214/88; PULSE 77; RESP 17; RESP 21; TEMP 36.8; O2SAT 98
--- NOTE | 2021-10-31 23:36 | EKG12_ITS ---
Test Reason : CP Blood Pressure : / mmHG Vent. Rate : 069 BPM Atrial Rate : 069 BPM P-R Int : 238 ms QRS Dur : 094 ms QT Int : 412 ms P-R-T Axes : 075 037 047 degrees QTc Int : 441 ms Sinus rhythm with 1st degree A-V block Otherwise normal ECG Confirmed by RIA SMITH, VICTORIANO ([id number]), sports editor AMPARO MALHOTRA ([id number]) on 11/02/2021 9:09:28 AM Referred By: ROBERTO CARLOS Confirmed By:VICTORIANO ROLLINS MD
[2021-10-31 23:41] VITALS: PULSE 69; RESP 16
[2021-10-31] MEDS: Ipratropium/Albuterol Sulfate 3 ML AMPUL.NEB INHALATION (23:41)
--- NOTE | 2021-11-01 00:02 | RAD_ITS ---
STUDY: X-RAY CHEST REASON FOR EXAM: Male, 86 years old. Dyspnea TECHNIQUE: Single AP portable view of the chest. COMPARISON: Chest x-ray September 26, 2019 FINDINGS: Interstitial markings are minimally prominent fairly similar to prior study. There is no demonstrated pleural abnormality. Normal size heart. Normal mediastinum and frank. Normal visualized pulmonary arteries. Normal visualized aortic arch and descending thoracic aorta. There are diffuse degenerative changes of the visualized thoracic spine. The right-sided clavicle side plate and cortical screws transfixing the clavicle. There is no demonstrated abnormality of the visualized soft tissue structures of the upper abdomen. RAD/Chest 1 View (Portable) IMPRESSION: Stable chest no visualized focal infiltrate. Status post open reduction internal fixation right clavicle. Electronically Signed: Eliana Aldrich MD at 0:47 EST ,
[2021-11-01 00:05] VITALS: BP 214/88; PULSE 68; RESP 18; O2SAT 98
[2021-11-01] MEDS: hydrALAZINE 20 MG/ML Vial IV (00:07)
[2021-11-01] MEDS: MethylPREDNISolone 125 MG/2 ML Vial IV (00:07)
[2021-11-01 00:12] VITALS: BP 218/81
[2021-11-01 00:17] VITALS: BP 205/77
[2021-11-01 00:19] LABS: Anion Gap 10 (5-15); BUN 21 mg/dL (7-18); BUN/Creat Ratio 17.9 RATIO (10-20); Calcium,Total 9.8 mg/dL (8.5-10.1); Chloride 102 mmol/L (98-107); Creatinine, Serum 1.17 mg/dL (0.70-1.30); EST Glomerular Filtration Rate 63 mL/min (>60); Est Glom Filt Rate - Afr Amer 76 mL/min (>60); Estimated Creatinine Clearance 48.53 ml/min; Glucose 117 mg/dL (74-106); Magnesium 1.8 mg/dL (1.6-2.6); Potassium 3.8 mmol/L (3.5-5.1); Sodium Level 138 mmol/L (136-145); Troponin-I HS 27 pg/mL (3.0-78.0)
[2021-11-01 00:22] LABS: Absolute Lymphocyte Count 2.97 X10^3/uL (0.83-4.51); Absolute Neutrophil Count 5.6 X10^3/uL (2.0-7.7); Basophil# 0.06 X10^3/uL; Basophil% 0.6 % (0-1); Eosinophil# 0.21 X10^3/uL; Eosinophils% 2.1 % (0-5); Hemoglobin 12.1 g/dL (13.0-16.5); Lymphocyte # 2.97 X10^3/ul (0.83-4.51); Lymphocyte % 30.3 % (19-41); Mean Corp Hgb Conc 32.7 g/dL (32-36); Mean Corpuscular Hgb 29.5 pg (27.0-32.0); Mean Corpuscular Volume 90.2 fL (80-94); Mean Platelet Vol. 10.5 fl (6.2-12.0); Monocyte# 0.95 X10^3/uL; Monocyte% 9.7 % (0-10); NRBC Flagged by Analyzer 0 % (0-5); Neutrophil # 5.57 X10^3/uL (2.7-7.7); Neutrophil % 56.9 % (47-70); Platelet Count 275 K/mm3 (150-450); RBC Distribution Width CV 12.7 % (11.6-14.6); RBC Distribution Width SD 41.6 fl (35.1-43.9); White Blood Count 9.8 K/mm3 (4.4-11.0)
[2021-11-01 00:43] LABS: BNP,B-Type NATRIURETIC PEPTIDE 219.4 pg/mL (0-100)
[2021-11-01 01:36] VITALS: BP 194/72
[2021-11-01 01:51] LABS: Troponin-I HS 36 pg/mL (3.0-78.0)
[2021-11-01 02:10] VITALS: O2SAT 92
--- NOTE | 2021-11-01 02:14 | EDS_ITS ---
HPI History of Present Illness Chief Complaint: Shortness of Breath Narrative Narrative: Patient is a 86-year-old male with past medical history of COPD. He states that he smoked approximately 2 packs a day for 40 years and has been off cigarettes now for about 8 to 10 years. He states he does have the formal diagnosis of COPD but has not required supplemental oxygen. He states that over the past 2 to 3 days he has been having increasing shortness of breath with congestion and cough. He states he has been taking his normal medications but his symptoms seem to be worsening and secondary to this comes in for evaluation [facility] Medical History (Updated 11/01/21 @ 02:[address] Ba Callaway, DO) Abdominal aortic aneurysm (AAA) Aortic aneurysm Atherosclerotic heart disease of red devil coronary artery without angina pectoris Carotid bruit Chest pain CKD (chronic kidney disease) stage 4, GFR 15-29 ml/min COPD (chronic obstructive pulmonary disease) Daytime hypersomnia DDD (degenerative disc disease), lumbar DM2 (diabetes mellitus, type 2) Dyslipidemia Essential (primary) hypertension HLD (hyperlipidemia) MARIXA (obstructive sleep apnea) Overweight Patellar bursitis of right knee Peripheral vascular disease of extremity with claudication Pre-syncope PVD (peripheral vascular disease) Rectus sheath hematoma Restless legs syndrome Seasonal allergies Somatic dysfunction of pelvic region Home Medications aspirin 81 mg PO QHS 03/28/14 [History Last Taken 09/18/19 22:00] isosorbide mononitrate 30 mg PO DAILY 03/28/14 [History Last Taken 09/18/19 0 8:00] metformin 500 mg PO BID 03/28/14 [History Last Taken 09/18/19 22:00] pantoprazole 40 mg PO DAILY 03/28/14 [History Last Taken 09/18/19 09:00] ammonium lactate 12 % lotion 1 applic TOPICAL QD-BID PRN 02/06/18 [History Last Taken Unknown] montelukast 10 mg tablet 10 mg PO QPM 02/06/18 [History Last Taken 09/18/19 22:00] nitroglycerin 0.4 mg sublingual tablet 0.4 mg SUBLINGUAL Q5-15M PRN 02/06/18 [History Last Taken Unknown] triamcinolone acetonide 55 mcg nasal spray aerosol 2 spray INTRANASAL DAILY 09/04/18 [History Last Taken 09/18/19 14:00] handicap placcard #1 ea 09/28/19 [Rx Last Taken Unknown] ascorbate calcium (vitamin C) 500 mg tablet 500 mg PO DAILY 05/03/20 [History Last Taken Unknown] coenzyme Q10 100 mg capsule 100 mg PO DAILY 05/03/20 [History Last Taken Unknown] triamcinolone acetonide 55 mcg nasal spray aerosol 2 spray INTRANASAL DAILY 05/03/20 [History Last Taken Unknown] cholecalciferol (vitamin D3) 100 mcg (4,000 unit) tablet 100 mcg PO DAILY 11/03/20 [History Last Taken Unknown] hydralazine 25 mg tablet 25 mg PO TID tab 11/03/20 [History Last Taken Unknown] ropinirole 0.5 mg tablet 0.5 mg PO TID tab 11/03/20 [History Last Taken Unknown] albuterol sulfate 90 mcg/actuation aerosol inhaler 2 inh INHALATION Q4H PRN #18 gm 01/12/21 [Rx Last Taken Unknown] spacer #1 each 01/12/21 [Rx Last Taken Unknown] ipratropium bromide 42 mcg (0.06 %) nasal spray 2 spray INTRANASAL TID-QID PRN #15 ml 05/23/21 [Rx Last Taken Unknown] hydrochlorothiazide 25 mg tablet 25 mg PO DAILY #90 tab 06/05/21 [Rx Last Taken Unknown] budesonide-formoterol HFA 160 mcg-4.5 mcg/actuation aerosol inhaler 2 puff INHALATION BID #1 each 07/25/21 [Rx Last Taken Unknown] atorvastatin 40 mg tablet 40 mg PO QODAY #45 tab 09/11/21 [Rx Last Taken Unknown] loratadine 10 mg capsule 10 mg PO QDAY #90 cap 09/28/21 [Rx Last Taken Unknown] carvedilol 12.5 mg tablet 12.5 mg PO BID #180 tab 10/23/21 [Rx Last Taken Unknown] ipratropium-albuterol 3 ml INHALATION 4X/DAY PRN PRN #90 ml 11/01/21 [Rx Last Taken Unknown] nifedipine [Adalat CC] 90 mg PO DAILY 11/01/21 [History Last Taken Unknown] prednisone 40 mg PO DAILY 5 Days #10 tab 11/01/21 [Rx Last Taken Unknown] Allergy/AdvReac Type Severity Reaction Status Date / Time cilostazol [From Pletal] Allergy Unknown Verified 11/01/21 00:14 felodipine Allergy Hives Verified 11/01/21 00:14 levofloxacin Allergy Hives Verified 11/01/21 00:14 Sulfa (Sulfonamide Allergy Unknown Verified 11/01/21 00:14 Antibiotics) Family History Father Diabetes Cancer Prostate cancer Surgical History H/O aortic aneurysm repair (11/1998) History of coronary artery stent placement (02/17/08) History of endarterectomy (07/2018) History of hernia repair History of left heart catheterization (03/2014) History of vascular surgery (08/2018) Social History Smoking Status: Former smoker how long ago did patient quit smokin years ago alcohol intake: current alcohol intake frequency: holidays/special occasions only details: hx of alcohol abuse substance use type: does not use caffeine: No what type of physical activity do you participate in: other details: Nustep frequency: 5-6 times per week duration: 15-30 minutes/day seatbelt use: always do you feel safe at home: Yes ROS ROS ED Constitutional Constitutional ED: Denies chills or fever(s) ENT ENT ED: Reports rhinorrhea; Denies sore throat Cardiovascular Cardiovascular: Denies chest pain Respiratory/Chest Respiratory/Chest: Reports cough and dyspnea Gastrointestinal Gastrointestinal: Denies abdominal pain, diarrhea, nausea or vomiting Genitourinary Genitourinary ED: Denies dysuria Musculoskeletal Musculoskeletal: Denies myalgias Integumentary Denies rash Neurologic Neurologic: Denies headache(s) Hematologic/Lymphatic Hematologic/Lymphatic: Denies easy bleeding or easy bruising EXAM Physical Exam Const Vital Signs: 10/31/21 23:11 10/31/21 23:15 10/31/21 23:41 Temperature 96.9 F L 98.2 F Temperature Source Temporal Temporal Pulse Rate 81 77 69 Respiratory Rate 20 H 21 H 16 Respiratory Pattern Normal Blood Pressure 229/101 H 214/88 H Blood Pressure Mean 143 130 Pulse Ox 95 98 Oxygen Delivery Method Room Air Room Air 11/01/21 00:05 11/01/21 00:12 11/01/21 00:17 Temperature Temperature Source Pulse Rate 68 Respiratory Rate 18 Respiratory Pattern Blood Pressure 214/88 H 218/81 H 205/77 H Blood Pressure Mean 130 126 119 Pulse Ox 98 Oxygen Delivery Method 11/01/21 01:36 Temperature Temperature Source Pulse Rate Respiratory Rate Respiratory Pattern Blood Pressure 194/72 H Blood Pressure Mean 112 Pulse Ox Oxygen Delivery Method Positive well nourished and well developed General Appearance ED: well developed HEENT Reports moist mucous membranes HEENT Narrative: Cobblestoning the posterior pharynx consistent with sinus drainage but no airway edema or compromise Eyes PERRL and EOMs intact bilaterally Neck supple and no JVD Resp Resp Narrative: Breath sounds are diminished throughout with diffuse expiratory wheeze and faint rhonchi in the bilateral bases. There is mild tachypnea noted Cardio regular rate and regular rhythm Rate: other Other Details: Radial pulses are +2-4 bilaterally are equal and symmetric GI normal to inspection, nondistended, normoactive bowel sounds, non-tender, non- distended and no masses GI Narrative: No voluntary guarding or rigidity no pulsatile mass Auscultation: normoactive bowel sounds Palpation: soft Extremity Extremity Narrative: Patient has chronic pitting edema to his right lower leg that is asymmetric from the left. However patient states this is normal for him and there is a negative Homans' sign bilaterally Neuro oriented x3 and CN's II-XII intact bilaterally Sensorium / Orientation: alert Motor Exam: strength 5/5 throughout Psych mental status grossly normal Skin no rashes or lesions noted MDM MDM MDM Narrative Medical decision making narrative: Patient presented to the ER hypertensive but states he does have a history of this and has been taking his medications as directed. He reported feeling increased shortness of breath with cough over the past few days but he had no reported obvious sick contacts. Based on his prolonged smoking history was felt he most likely is having a COPD exacerbation but based on his hypertension and advanced age we did elect to perform a basic cardiac work-up. Patient's white count is normal his hemoglobin hematocrit are normal as well. He has a history of chronic kidney disease but his creatinine is actually in the normal range at this time. The patient's EKG is sinus rhythm and his initial troponin is 27. Chest x-ray revealed no acute lung pathology and after treatment with DuoNeb and IV Solu-Medrol patient did report feeling better. He was also given hydralazine because of the accelerated hypertension and did have resolution down to approximately 180 systolically. The patient delta troponin did increase by 9-36 but this is still within a normal range and the patient is adamant he does not have any chest discomfort. The patient was ambulated and his pulse ox only dropped to 92% which is not requiring oxygen or admission. We discussed the possibility of watching the patient for little while longer and doing a third troponin but as he does not have chest pain and reports feeling better with medication provided he would like to be discharged. As the patient is not hypoxic at rest or with ambulation Covid test is negative and there are no signs of acute kidney injury or cardiac disease/event he can be placed on symptomatic medications and discharged home Lab Data Attestation: I reviewed the patient's lab results. Labs: Laboratory Results - last 24 hr 10/31/21 10/31/21 10/31/21 23:30 23:30 23:30 WBC 9.8 RBC 4.10 L Hgb 12.1 L Hct 37.0 L MCV 90.2 MCH 29.5 MCHC 32.7 RDW Std Deviation 41.6 RDW Coeff of Justin 12.7 Plt Count 275 MPV 10.5 Immature Gran % (Auto) 0.400 Neut % (Auto) 56.9 Lymph % (Auto) 30.3 Morris % (Auto) 9.7 Eos % (Auto) 2.1 Baso % (Auto) 0.6 Absolute Neuts (auto) 5.6 Absolute Lymphs (auto) 2.97 Nucleated RBC % 0 Sodium 138 Potassium 3.8 Chloride 102 Carbon Dioxide 26.0 Anion Gap 10 BUN 21 H Creatinine 1.17 Estim Creat Clear Calc 48.53 Est GFR (MDRD) Af Amer 76 Est GFR (MDRD) Non-Af 63 BUN/Creatinine Ratio 17.9 Glucose 117 H Calcium 9.8 Magnesium 1.8 Troponin I High Sens 27 B-Natriuretic Peptide 219.4 H 11/01/21 01:23 WBC RBC Hgb Hct MCV MCH MCHC RDW Std Deviation RDW Coeff of Justin Plt Count MPV Immature Gran % (Auto) Neut % (Auto) Lymph % (Auto) Morris % (Auto) Eos % (Auto) Baso % (Auto) Absolute Neuts (auto) Absolute Lymphs (auto) Nucleated RBC % Sodium Potassium Chloride Carbon Dioxide Anion Gap BUN Creatinine Estim Creat Clear Calc Est GFR (MDRD) Af Amer Est GFR (MDRD) Non-Af BUN/Creatinine Ratio Glucose Calcium Magnesium Troponin I High Sens 36 B-Natriuretic Peptide Radiography Diagnostic Testing: Clinical Impression(s) from Imaging Studies Chest X-Ray 11/01/21 00:02 IMPRESSION: Stable chest no visualized focal infiltrate. Status post open reduction internal fixation right clavicle. Electronically Signed: Eliana Aldrich MD at 0:47 EST , Discharge Plan Triage Chief Complaint: Shortness of Breath Other Complaint: Chest Pain ED Provider: Ba Callaway Dx/Rx/DC Orders Clinical Impression: Acute exacerbation of chronic obstructive pulmonary disease, Accelerated hypertension Instructions: COPD: Wheezing and Chest Tightness, ED Hypertension, Established Prescriptions: New prednisone 20 mg tablet 40 mg PO DAILY 5 Days Qty: 10 RF: 0 ipratropium-albuterol 0.5 mg-3 mg(2.5 mg base)/3 mL solution for nebulization 3 ml inhalation 4X/DAY PRN PRN (Reason: shortness of breath or wheezing) Qty: 90 RF: 0 No Action nitroglycerin [Nitrostat] 0.4 mg tablet, sublingual 0.4 mg SUBLINGUAL Q5-15M PRN (Reason: chest pain) RF: 0 ammonium lactate 12 % lotion 1 applic TOPICAL QD-BID PRN (Reason: dry skin ) RF: 0 montelukast [Singulair] 10 mg tablet 10 mg PO QPM RF: 0 triamcinolone acetonide [Nasacort] 55 mcg aerosol,spray 2 spray INTRANASAL DAILY RF: 0 (DME) handicap placcard Qty: 1 RF: 0 coenzyme Q10 [Co Q-10] 100 mg capsule 100 mg PO DAILY RF: 0 ascorbate calcium (vitamin C) 500 mg tablet 500 mg PO DAILY RF: 0 triamcinolone acetonide 55 mcg aerosol,spray 2 spray INTRANASAL DAILY RF: 0 hydralazine 25 mg tablet 25 mg PO TID RF: 0 ropinirole 0.5 mg tablet 0.5 mg PO TID RF: 0 cholecalciferol (vitamin D3) 100 mcg (4,000 unit) tablet 100 mcg (4,000 unit) tablet 100 mcg PO DAILY RF: 0 albuterol sulfate [Ventolin HFA] 90 mcg/actuation HFA aerosol inhaler 2 inh INHALATION Q4H PRN (Reason: shortness of breath or wheezing) Qty: 18 RF: 6 (DME) spacer See Rx Instructions .ROUTE .MEDSUPPLY Qty: 1 RF: 0 pantoprazole 40 MG tablet 40 mg PO DAILY RF: 0 aspirin 81 MG tablet,chewable 81 mg PO QHS RF: 0 isosorbide mononitrate 30 MG tablet 30 mg PO DAILY RF: 0 metformin 500 MG tablet 500 mg PO BID RF: 0 nifedipine [Adalat CC] 90 mg tablet extended release 90 mg PO DAILY RF: 0 ipratropium bromide 42 mcg (0.06 %) spray,non-aerosol 2 spray INTRANASAL TID-QID PRN (Reason: allergy symptoms) Qty: 15 RF: 6 hydrochlorothiazide 25 mg tablet 25 mg PO DAILY Qty: 90 RF: 3 budesonide-formoterol [Symbicort] 160-4.5 mcg/actuation HFA aerosol inhaler 2 puff INHALATION BID Qty: 1 RF: 3 atorvastatin 40 mg tablet 40 mg PO QODAY Qty: 45 RF: 3 loratadine 10 mg capsule 10 mg PO QDAY Qty: 90 RF: 3 carvedilol 12.5 mg tablet 12.5 mg PO BID Qty: 180 RF: 3 Primary Care Provider: Emeka Horn Referrals: Emeka Horn MD [Primary Care Provider] - Disposition Disposition: Home, Self Care Discharge Date/Time: 11/01/21 02:22
--- NOTE | 2021-11-01 12:15 | CASEMGMT ---
COLLEEN BECERRA ED follow-up: COLLEEN BECERRA placed call to patient's telephone number listed on demographics, patient answered. Patient states he is feeling fine today and currently sitting in physicians office for scheduled appointment. COLLEEN BECERRA inquired if patient has SpO2 monitor to which patient replied he does not, but SpO2 was checked by office staff and no concerns. Patient reports he has another physician's appointment this afternoon. Patient denies questions or concerns. COLLEEN Vizcarra CM
== END 2021-11-01 02:22 | disposition home or self-care (01) ==
PROVIDERS: Emergency Provider Emergency Medicine; PCP Internal Medicine; Visit Provider Emergency Medicine
DX: J44.1 Chronic obstructive pulmonary disease with (acute) exacerbation (principal); E11.51 Type 2 diabetes mellitus with diabetic peripheral angiopathy without gangrene; E11.22 Type 2 diabetes mellitus with diabetic chronic kidney disease; N18.4 Chronic kidney disease, stage 4 (severe); I12.9 Hypertensive chronic kidney disease with stage 1 through stage 4 chronic kidney disease, or unspecified chronic kidney disease; I25.10 Atherosclerotic heart disease of native coronary artery without angina pectoris; E78.5 Hyperlipidemia, unspecified; E66.3 Overweight; Z68.28 Body mass index [BMI] 28.0-28.9, adult; Z79.82 Long term (current) use of aspirin; Z79.84 Long term (current) use of oral hypoglycemic drugs; Z79.899 Other long term (current) drug therapy; Z87.891 Personal history of nicotine dependence
CPT/HCPCS: 71045; 80048; 83735; 83880; 84484; 85025; 87426; 93005; 94640; 96374; 96375; 99282; A4216

== ENCOUNTER 2021-11-06 08:41 | Outpatient (CLI) | payer MEDICARE, SELFPAY ==
[2021-11-06 10:50] LABS: Anion Gap 8 (5-15); BUN 21 mg/dL (7-18); BUN/Creat Ratio 17.4 RATIO (10-20); Calcium,Total 9.1 mg/dL (8.5-10.1); Chloride 103 mmol/L (98-107); Creatinine, Serum 1.21 mg/dL (0.70-1.30); EST Glomerular Filtration Rate 61 mL/min (>60); Est Glom Filt Rate - Afr Amer 73 mL/min (>60); Glucose 177 mg/dL (74-106); Potassium 3.6 mmol/L (3.5-5.1); Sodium Level 137 mmol/L (136-145)
== END 2021-11-06 23:59 | disposition short-term general hospital (02) ==
PROVIDERS: PCP Internal Medicine; Referring Provider Nurse Practitioner Gerontology; Visit Provider Nurse Practitioner Gerontology
DX: R06.00 Dyspnea, unspecified (principal)
CPT/HCPCS: 36415; 80048

== ENCOUNTER 2021-12-04 06:03 | Outpatient (CLI) | payer MEDICARE, SELFPAY ==
--- NOTE | 2021-12-04 17:20 | STRESSREP ---
Stress Test Report Pharmacologic myocardial perfusion stress test. 86-year-old male with a history of chest pain status post previous angioplasty and stenting. Stress protocol: Resting EKG demonstrates normal sinus rhythm with a rate of 64 bpm normal intervals are noted first-degree AV block is noted. Resting blood pressure is 158/68 mmHg. 0.4 mg of regadenoson was infused per usual protocol followed by rapid intravenous saline flush injection continuous EKG monitoring was performed. The maximum heart rate attained was 91 bpm which was 66% of max impact at heart rate the maximum workload was 1 metabolic equivalent. At rest there were no ST or T wave changes noted to suggest abnormal flow reserve and at peak infusion nonspecific ST changes were noted. No clinical angina was noted. Myocardial perfusion protocol. 11.8 mCi of technetium 99m sestamibi was injected at rest. 0.4 mg of regadenoson was infused per usual protocol. At peak infusion 33.9 mCi of technetium 99m sestamibi was injected stress images were obtained stress and rest images were reconstructed and compared in the short axis vertical long and horizontal long axis. Gated images were also obtained per Perfusion SPECT analysis: Review of the stress images demonstrate normal uptake of tracer noted in all areas of the myocardium. The resting images similarly demonstrate normal uptake of tracer noted in all areas of the myocardium. No areas of reversibility are noted to suggest ischemia no previous infarct is noted. Gated SPECT analysis: The gated ejection fraction is 55%. Conclusion: Normal pharmacologic myocardial perfusion stress test. Preserved ejection fraction.
== END 2021-12-04 23:59 | disposition home or self-care (01) ==
PROVIDERS: PCP Internal Medicine; Referring Provider Nurse Practitioner Gerontology; Visit Provider Nurse Practitioner Gerontology
DX: R07.9 Chest pain, unspecified (principal)
CPT/HCPCS: 78452; 93017; A9500; A4216; J2785

== ENCOUNTER 2022-01-04 19:52 | Outpatient (CLI) | payer MEDICARE, SELFPAY ==
[2022-01-04 19:54] LABS: Mucous, Urine 0 SEEN /hpf (<or=2+)
[2022-01-04 20:01] LABS: Color, Urine Yellow (Yellow); Glucose, Dipstick Normal (Normal); Ketone-Dipstick Negative (Negative); Leukocyte Esterase-Dipstick 500 /ul (Negative); Nitrite-Dipstick Negative (Negative); Occult Blood-Urine 10 /ul (Negative); Protein-Dipstick 500 mg/dl (Negative); Urine Bilirubin Dipstick Negative (Negative); Urine Clarity Cloudy (Clear); Urine Urobilinogen Normal (Normal)
[2022-01-04 20:19] LABS: Bacteria 3+ /hpf (None Seen); Red Blood Cells-Urine 0-5 SEEN /hpf (0-5); Squamous Epithelial Cells - UA 0-5 SEEN /hpf (0-5); White Blood Cells 50-100 SEEN /hpf (0-5)
== END 2022-01-04 23:59 | disposition home or self-care (01) ==
PROVIDERS: PCP Internal Medicine; Visit Provider Physician Assistant
DX: R30.9 Painful micturition, unspecified (principal); N39.0 Urinary tract infection, site not specified
CPT/HCPCS: 81001; 87077; 87086; 87088; 87186

== ENCOUNTER 2022-01-18 10:00 | Outpatient (CLI) | payer MEDICARE, SELFPAY ==
[2022-01-18 10:14] LABS: Mucous, Urine 0 SEEN /hpf (<or=2+); Red Blood Cells-Urine 0 SEEN /hpf (0-5); Squamous Epithelial Cells - UA 0 SEEN /hpf (0-5)
[2022-01-18 10:26] LABS: Color, Urine Yellow (Yellow); Glucose, Dipstick Normal (Normal); Ketone-Dipstick Negative (Negative); Leukocyte Esterase-Dipstick 500 /ul (Negative); Nitrite-Dipstick Negative (Negative); Occult Blood-Urine 25 /ul (Negative); Protein-Dipstick 500 mg/dl (Negative); Specific Gravity, Urine 1.015 (1.002-1.030); Urine Bilirubin Dipstick Negative (Negative); Urine Clarity Cloudy (Clear); Urine Urobilinogen Normal (Normal)
[2022-01-18 10:38] LABS: Bacteria 1+ /hpf (None Seen); White Blood Cells >100 SEEN /hpf (0-5)
== END 2022-01-18 23:59 | disposition home or self-care (01) ==
LOC: LABSPEC 10:01
PROVIDERS: PCP Internal Medicine; Referring Provider Physician Assistant; Visit Provider Physician Assistant
DX: R30.9 Painful micturition, unspecified (principal)
CPT/HCPCS: 81001; 87077; 87086; 87088; 87186

== ENCOUNTER 2022-01-25 14:31 | Outpatient (CLI) | payer MEDICARE, SELFPAY ==
[2022-01-25 15:19] LABS: Absolute Lymphocyte Count 3.09 X10^3/uL (0.83-4.51); Absolute Neutrophil Count 6.2 X10^3/uL (2.0-7.7); Basophil# 0.06 X10^3/uL; Basophil% 0.6 % (0-1); Eosinophil# 0.29 X10^3/uL; Eosinophils% 2.7 % (0-5); Hematocrit 31.3 % (40-54); Hemoglobin 11.6 g/dL (13.0-16.5); Lymphocyte # 3.09 X10^3/ul (0.83-4.51); Lymphocyte % 28.7 % (19-41); Mean Corp Hgb Conc 37.1 g/dL (32-36); Mean Corpuscular Hgb 34.5 pg (27.0-32.0); Mean Corpuscular Volume 93.2 fL (80-94); Mean Platelet Vol. 10.1 fl (6.2-12.0); Monocyte# 1.05 X10^3/uL; Monocyte% 9.8 % (0-10); NRBC Flagged by Analyzer 0 % (0-5); Neutrophil # 6.21 X10^3/uL (2.7-7.7); Neutrophil % 57.6 % (47-70); Platelet Count 353 K/mm3 (150-450); RBC Distribution Width CV 15.4 % (11.6-14.6); RBC Distribution Width SD 46.9 fl (35.1-43.9); Red Blood Count 3.36 M/mm3 (4.6-6.2); White Blood Count 10.8 K/mm3 (4.4-11.0)
[2022-01-25 15:45] LABS: Anion Gap 7 (5-15); BUN 38 mg/dL (7-18); Calcium,Total 9.6 mg/dL (8.5-10.1); Chloride 100 mmol/L (98-107); Creatinine, Serum 1.52 mg/dL (0.70-1.30); EST Glomerular Filtration Rate 47 mL/min (>60); Est Glom Filt Rate - Afr Amer 56 mL/min (>60); Glucose 141 mg/dL (74-106); Sodium Level 137 mmol/L (136-145)
[2022-01-25 15:47] LABS: BNP,B-Type NATRIURETIC PEPTIDE 82.8 pg/mL (0-100)
== END 2022-01-25 23:59 | disposition home or self-care (01) ==
LOC: LAB 14:32
PROVIDERS: PCP Internal Medicine; Visit Provider Nurse Practitioner Gerontology
DX: R06.02 Shortness of breath (principal); R06.00 Dyspnea, unspecified
CPT/HCPCS: 36415; 80048; 83880; 85025

== ENCOUNTER → 2022-02-06 | Outpatient (CLI) | payer MEDICARE, SELFPAY | END | disposition home or self-care (01) | LOC: LABSPEC 16:53 | PROVIDERS: PCP Internal Medicine; Visit Provider Urology | DX: R31.0 Gross hematuria (principal) | CPT/HCPCS: 87077; 87086; 87088; 87186 ==

== ENCOUNTER → 2022-02-13 | Outpatient (CLI) | payer MEDICARE, SELFPAY ==
--- NOTE | 2022-02-13 12:08 | CT_ITS ---
STUDY: CT ABDOMEN AND PELVIS WITHOUT CONTRAST REASON FOR EXAM: Male, 86 years old. OTHER MICROSCOPIC HEMATURIA RADIATION DOSAGE (If Supplied By Facility): CTDIvol = ( 13.44 ) mGy, DLP = ( 637.89 ) mGycm TECHNIQUE: Transaxial images were obtained from the dome of the diaphragm to the symphysis pubis without oral contrast, and without intravenous contrast. Sagittal and coronal images were reconstructed. Individualized dose optimization techniques were used for this CT. COMPARISON: Comparison is made with prior examination dated 09/19/2019. FINDINGS: Minimal scarring at the right lung base. Stable tiny nodules at the lung bases at the level of the pleura. Coronary artery calcification. Normal liver. Normal gallbladder and extrahepatic biliary system. Normal spleen. Normal pancreas. Normal bilateral adrenal glands. Stable bilateral intrarenal atherosclerotic calcifications. There is a 6 cm x 6 cm cyst in the anterior lower pole of the right kidney. Stable left renal cysts. The largest cyst is in the inferior medial portion of the left kidney and measures 2.6 cm. There is a small hiatal hernia. Normal small intestine. Normal colon. The appendix is visualized and appears normal. There is diffuse atherosclerotic calcification of the abdominal aorta and its major visceral branches. Aneurysmal dilatation of the distal abdominal aorta with a transverse dimension of 3.9 cm.. Normal inferior vena cava. Normal retroperitoneum. Normal urinary bladder. There is enlargement of the prostate gland. Prostate measures 5.4 size by 4.7 cm. This causes indentation at the bladder base. Normal abdominal wall. There are diffuse degenerative changes of the visualized lumbar spine. CT/Abdomen/Pelvis without Cont IMPRESSION: Stable tiny nodules at the lung bases adjacent to the diaphragmatic surfaces of the pleura. Bilateral renal cysts. Stable renal abdominal aortic aneurysm. Prostatic enlargement with indentation at the bladder base. Electronically Signed: Yemi Clifton MD at 13:51 EDT ,
== END | disposition home or self-care (01) ==
LOC: CT 12:04
PROVIDERS: PCP Internal Medicine; Visit Provider Urology
DX: R31.29 Other microscopic hematuria (principal)
CPT/HCPCS: 74176

== ENCOUNTER → 2022-02-19 | Outpatient (CLI) | payer MEDICARE, SELFPAY | END | disposition home or self-care (01) | LOC: LABSPEC 16:26 | PROVIDERS: PCP Internal Medicine; Visit Provider Urology | DX: N40.1 Benign prostatic hyperplasia with lower urinary tract symptoms (principal) | CPT/HCPCS: 87086 ==

== ENCOUNTER 2022-03-07 14:07 | Observation (INO) | payer MEDICARE, SELFPAY ==
[2022-03-07] VITALS (16 sets, daily range): BP systolic 135–175; BP diastolic 57–76; PULSE 49–66; RESP 14–18; TEMP 35.9–36.6; O2SAT 89–100; BMI 27.8
[2022-03-07] MEDS: Lactated Ringers 1,000 ML 15 ML IV ×2 (12:05→16:58)
[2022-03-07 12:25] LABS: Bedside Glucose 165 mg/dL (74-106)
--- NOTE | 2022-03-07 13:20 | PROS_PTH ---
PATIENT: DESIREE ROSAS LOC: [facility] U#:[id number] AGE/SX: 86/M ROOM: [facility] RE03/07/[address]: Dr. Mikael Matos MD : [id number] BED: 1 DIS: 03/09/2022 SPEC #: [id number] RECD: 03/07/22 16:16 STATUS: CHENTE SON #: [id number] ZAHIDA: 03/07/22 13:[address]: Mikael Matos DEPT: SURGICAL PATHOLOGY RECD BY: Nila Garcia ENTERED: 03/08/22 09:56 SP TYPE: TURP OTHR DR: Dr. Emeka Horn MD Tissues: Prostate, NOS Procedures: Surgery Specimen Level IV HEADER OPERATION: Cysto, TUR prostate, [employer] PRE-OP DIAGNOSIS: Benign prostatic hypertrophy TISSUE SUBMITTED: Prostate chips MICROSCOPIC DIAGNOSIS Prostate, transurethral resection: Benign nodular hyperplasia, glandular and stromal types. Chronic inflammation. AM:robert 03/09/2022 MICROSCOPIC DESCRIPTION Slides are reviewed. GROSS DESCRIPTION Received is one container labeled with the patient's name and designated prostate chips. The specimen consists of multiple irregular fragments of pink-salinas, rubbery, soft tissue that in aggregate weigh 24.2 gm and measure in aggregate 8 x 7 x 1 cm. [employer] portions are submitted in ten cassettes. / AM:robert 03/08/2022 TC:3 CPT: 55782
[2022-03-07] MEDS: Cefazolin 2 GM in 0.9% Normal Saline 100 ML IV (14:15)
[2022-03-07] MEDS: Lubricating Jelly 60 GM Tube 30 GM (15:00)
--- NOTE | 2022-03-07 15:25 | HP.PCM_ITS ---
HPI - General HPI Narrative DESIREE ROSAS, is a 86 M who presents for a TURP [facility] Medical History (Updated 02/28/22 @ 10:11 by Nelly Ashton) Abdominal aortic aneurysm (AAA) Acute cystitis with hematuria Ambulates with cane Aortic aneurysm Arthritis Asthma Atherosclerotic heart disease of [place] coronary artery without angina pectoris Back pain BiPAP (biphasic positive airway pressure) dependence Cancer Cardiology follow-up encounter Carotid bruit Chest pain Chronic cough CKD (chronic kidney disease) stage 4, GFR 15-29 ml/min COPD (chronic obstructive pulmonary disease) Daytime hypersomnia DDD (degenerative disc disease), lumbar Diabetes DM2 (diabetes mellitus, type 2) Dyslipidemia Easy bruising Essential (primary) hypertension Former smoker Gastric reflux High cholesterol History of echocardiogram History of edema History of heart attack History of hiatal hernia History of irregular heartbeat History of pain when walking History of renal disease History of steroid therapy History of stress test HLD (hyperlipidemia) Hoarseness Hypertension Injury of back Kidney stone Leg cramps MARIXA (obstructive sleep apnea) Overweight Patellar bursitis of right knee Peripheral vascular disease of extremity with claudication Pre-syncope PVD (peripheral vascular disease) Rectus sheath hematoma Recurrent urinary tract infection Restless legs Restless legs syndrome Seasonal allergies Shortness of breath on exertion Sleep apnea Somatic dysfunction of pelvic region Walker as ambulation aid Wears dentures Wears glasses Wears hearing aid Home Medications aspirin 81 mg PO QHS 03/28/14 [History Last Taken 02/27/22] isosorbide mononitrate 30 mg PO DAILY 03/28/14 [History Last Taken 03/07/22 09:00] pantoprazole 40 mg PO DAILY 03/28/14 [History Last Taken 03/07/22 09:00] ammonium lactate 12 % lotion 1 applic TOPICAL QD-BID PRN 02/06/18 [History Last Taken Unknown] triamcinolone acetonide 55 mcg nasal spray aerosol 2 spray INTRANASAL DAILY 09/04/18 [History Last Taken 09/18/19 14:00] handicap placcard #1 ea 09/28/19 [Rx Last Taken Unknown] ascorbate calcium (vitamin C) 500 mg tablet 500 mg PO DAILY 05/03/20 [History Last Taken Unknown] coenzyme Q10 100 mg capsule 100 mg PO DAILY 05/03/20 [History Last Taken Unknown] cholecalciferol (vitamin D3) 100 mcg (4,000 unit) tablet 100 mcg PO DAILY 11/03/20 [History Last Taken Unknown] hydralazine 25 mg tablet 25 mg PO TID tab 11/03/20 [History Last Taken 03/07/22 09:00] spacer #1 each 01/12/21 [Rx Last Taken Unknown] hydrochlorothiazide 25 mg tablet 25 mg PO DAILY #90 tab 06/05/21 [Rx Last Taken Unknown] nitroglycerin 0.4 mg sublingual tablet 0.4 mg SUBLINGUAL Q5-15M PRN #25 tab 11/01/21 [Rx Last Taken Unknown] ropinirole 0.5 mg tablet 0.5 mg PO TID #180 tab 11/25/21 [Rx Last Taken Unknown] albuterol sulfate 90 mcg/actuation aerosol inhaler 2 inh INHALATION Q4H PRN #18 gm 11/27/21 [Rx Last Taken Unknown] carvedilol 12.5 mg tablet 12.5 mg PO BID #180 tab 01/22/22 [Rx Last Taken 03/07/22 09:00] metformin 850 mg tablet 850 mg PO BID tab 01/25/22 [History Last Taken Unknown] atorvastatin 40 mg tablet 40 mg PO QODAY #45 tab 02/20/22 [Rx Last Taken Unknown] budesonide-formoterol HFA 160 mcg-4.5 mcg/actuation aerosol inhaler 2 puff INHALATION BID #3 ea 02/21/22 [Rx Last Taken Unknown] ipratropium 0.5 mg-albuterol 3 mg (2.5 mg base)/3 mL nebulization soln 3 ml INHALATION 4X/DAY PRN PRN #90 ml 02/21/22 [Rx Last Taken Unknown] ipratropium bromide 42 mcg (0.06 %) nasal spray 2 spray INTRANASAL TID-QID PRN #15 ml 02/21/22 [Rx Last Taken Unknown] loratadine 10 mg capsule 10 mg PO QDAY #90 cap 02/21/22 [Rx Last Taken 03/07/22 09:00] montelukast 10 mg tablet 10 mg PO QHS #30 tab 02/21/22 [Rx Last Taken Unknown] nifedipine 90 mg tablet,extended release 90 mg PO DAILY #90 tab 02/23/22 [Rx Last Taken 03/07/22 09:00] cephalexin 500 mg PO BID #10 cap 03/07/22 [Rx Last Taken Unknown] Allergy/AdvReac Type Severity Reaction Status Date / Time cilostazol [From Pletal] Allergy Unknown Verified 03/07/22 11:51 felodipine Allergy Hives Verified 03/07/22 11:51 levofloxacin Allergy Hives Verified 03/07/22 11:51 Sulfa (Sulfonamide Allergy Unknown Verified 03/07/22 11:51 Antibiotics) Family History (Reviewed 02/21/22 @ 14:23 by Denise Cruz ROBOTIC WELDING OPERATOR, ROBOTIC WELDING OPERATOR-C) Father Diabetes Cancer Prostate cancer Surgical History (Reviewed 02/21/22 @ 14:23 by Denise Cruz ROBOTIC WELDING OPERATOR, ROBOTIC WELDING OPERATOR-C) H/O aortic aneurysm repair (11/1998) History of coronary artery stent placement (02/17/08) History of endarterectomy (07/2018) History of hernia repair History of left heart catheterization (03/2014) History of vascular surgery (08/2018) Social History (Reviewed 02/21/22 @ 14:23 by Denise Cruz ROBOTIC WELDING OPERATOR, ROBOTIC WELDING OPERATOR-C) Smoking Status: Former smoker how long ago did patient quit smokin years ago alcohol intake: current alcohol intake frequency: holidays/special occasions only details: hx of alcohol abuse substance use type: does not use caffeine: No what type of physical activity do you participate in: other details: Nustep frequency: 5-6 times per week duration: 15-30 minutes/day seatbelt use: always do you feel safe at home: Yes Vital Signs Vital Signs Vital Signs: 03/07/22 11:45 Temperature 97.3 F L Temperature Source Temporal Pulse Rate 62 Respiratory Rate 16 Respiratory Pattern Normal Blood Pressure 135/57 H Blood Pressure Mean 83 Blood Pressure Source Monitor Blood Pressure Position Semi-Fowlers Blood Pressure Location Left Arm Pulse Ox 97 Oxygen Delivery Method Room Air Weight Weight: 88 kg Body Mass Index (BMI) 27.8 Results Lab / Micro Data Labs: Laboratory Results - last 24 hr 03/07/22 12:02: POC Glucose 165 H
--- NOTE | 2022-03-07 15:26 | PCM.DC ---
Discharge Instructions Diet Discharge Diet: No restrictions Activity Discharge Activity: Return to Normal Activity and May Not Drive (while taking narcotic pain medications.) Dressing / Incision Call your doctor if you observe: Fever of 101 or Higher Follow Up Care Please Follow Up With: Mikael Matos MD When: Call [phone] for an appointment Test Results: Test results from this visit will be discussed in further detail at your follow-up appointment, if applicable. Discharge Plan Admission Primary Reason for Your Visit: ALLAN Attending Provider: Mikael Matos Primary Care Provider: Emeka Horn Instructions Patient Instructions: ALLAN Home Recovery Discharge Orders/Prescriptions Prescriptions: New cephalexin 500 mg capsule 500 mg PO BID Qty: 10 RF: 0 Continued ammonium lactate 12 % lotion 1 applic TOPICAL QD-BID PRN (Reason: dry skin ) RF: 0 triamcinolone acetonide [Nasacort] 55 mcg aerosol,spray 2 spray INTRANASAL DAILY RF: 0 (DME) handicap placcard Qty: 1 RF: 0 coenzyme Q10 [Co Q-10] 100 mg capsule 100 mg PO DAILY RF: 0 ascorbate calcium (vitamin C) 500 mg tablet 500 mg PO DAILY RF: 0 hydralazine 25 mg tablet 25 mg PO TID RF: 0 cholecalciferol (vitamin D3) 100 mcg (4,000 unit) tablet 100 mcg (4,000 unit) tablet 100 mcg PO DAILY RF: 0 (DME) spacer See Rx Instructions .ROUTE .MEDSUPPLY Qty: 1 RF: 0 nitroglycerin [Nitrostat] 0.4 mg tablet, sublingual 0.4 mg SUBLINGUAL Q5-15M PRN (Reason: chest pain) Qty: 25 RF: 2 montelukast 10 mg tablet 10 mg PO QHS Qty: 30 RF: 6 ipratropium-albuterol 0.5 mg-3 mg(2.5 mg base)/3 mL solution for nebulization 3 ml inhalation 4X/DAY PRN PRN (Reason: shortness of breath or wheezing) Qty: 90 RF: 6 budesonide-formoterol [Symbicort] 160-4.5 mcg/actuation HFA aerosol inhaler 2 puff INHALATION BID Qty: 3 RF: 3 ipratropium bromide 42 mcg (0.06 %) spray,non-aerosol 2 spray INTRANASAL TID-QID PRN (Reason: allergy symptoms) Qty: 15 RF: 6 loratadine 10 mg capsule 10 mg PO QDAY Qty: 90 RF: 3 metformin 850 mg tablet 850 mg PO BID RF: 0 pantoprazole 40 MG tablet 40 mg PO DAILY RF: 0 aspirin 81 MG tablet,chewable 81 mg PO QHS RF: 0 isosorbide mononitrate 30 MG tablet 30 mg PO DAILY RF: 0 hydrochlorothiazide 25 mg tablet 25 mg PO DAILY Qty: 90 RF: 3 ropinirole 0.5 mg tablet 0.5 mg PO TID Qty: 180 RF: 3 albuterol sulfate [Ventolin HFA] 90 mcg/actuation HFA aerosol inhaler 2 inh INHALATION Q4H PRN (Reason: shortness of breath or wheezing) Qty: 18 RF: 6 carvedilol 12.5 mg tablet 12.5 mg PO BID Qty: 180 RF: 3 atorvastatin 40 mg tablet 40 mg PO QODAY Qty: 45 RF: 3 nifedipine [Adalat CC] 90 mg tablet extended release 90 mg PO DAILY Qty: 90 RF: 3 Referrals / Follow Up: Mikael Matos MD [STAFF PHYSICIAN] - Emeka Horn MD [Primary Care Provider] - Disposition Disposition (needs filled in before D/C Order can be placed): Home, Self Care
--- NOTE | 2022-03-07 15:26 | PCM.OPRPT ---
Report of Operation Date of Procedure: 03/07/22 Pre-Operative Diagnosis: bph with obstruction Post-Operative Diagnosis: same Surgery/Procedure Performed:: TURP Description of Surgical Findings:: In the preoperative setting I discussed with the patient how the surgery would be done with expect afterwards. We discussed how a prostate resection is done and we discussed the risk of the surgery including, bleeding, infection, retrograde ejaculation, changes with ejaculation or intercourse,. We discussed the possibility that the resection of the prostate may not alleviate his urinary symptoms. We discussed the small risk of developing scar tissue along the urethral channel and strictures. We also discussed the chance of the prostate could grow back and he may need further surgery or treatment in the future for prostate problems. Patient was taken back to the operating room, timeout procedure was performed, he was identified and marked and placed on the operating room table. He underwent general anesthesia. He was placed in dorsolithotomy position. Penis and testicles were prepped and draped in usual sterile fashion. Went into the bladder using the visual obturator with a resectoscope. Once inside the bladder identified the right and left ureteral orifice. I then identified the prostate and the anatomy of the prostate. I marked out the area of the sphincter and the verumontanum was identified. I then proceeded with the prostate resection first resected the median lobe. And then resected the right lobe of the prostate. Then to resect the left lobe of the prostate. I then resected the apical tissue of the prostate. This was a complete resection of all obstructive tissue to improve voiding and relieve obstruction. I then made sure that there was no injury to the sphincter or the verumontanum was still intact. At the end of the resection all the chips were Ellik out of the bladder. I then identified the left and right ureteral orifice and these were confirmed to be in good position and effluxing and not injured. The resectoscope was removed, a 22 [place] catheter was placed into the bladder on continuous irrigation. And the urine was fairly light pink color and draining normally. He was taken back to the PACU in good condition. CPT 70954 Surgeon: marian Type of Anesthesia: General Drains: [address] Admit VTE Documentation VTE Present on Admission: No VTE Mechan Device Prophylaxis: SCD's VTE Pharm Prophylaxis ordered?: No
[2022-03-07 17:31] LABS: Bedside Glucose 134 mg/dL (74-106)
[2022-03-07] MEDS: metFORMIN HCl 850 MG Tablet PO (18:53)
[2022-03-07] MEDS: Budesonide Respules 0.5 MG/2 ML AMPUL.NEB. INHALATION (19:11)
[2022-03-07] MEDS: Albuterol 2.5 MG/3 ML VIAL.NEB. INHALATION (19:11)
[2022-03-07] MEDS: Carvedilol 12.5 MG Tablet PO (22:02)
[2022-03-07] MEDS: hydrALAZINE 25 MG Tablet PO (22:02)
[2022-03-07] MEDS: Montelukast 10 MG Tablet PO (22:03)
[2022-03-08] VITALS (10 sets, daily range): BP systolic 126–177; BP diastolic 61–84; PULSE 55–75; RESP 16–20; TEMP 36.2–37.2; O2SAT 94–98
[2022-03-08] MEDS: hydrALAZINE 25 MG Tablet PO ×3 (05:22→22:34)
[2022-03-08] MEDS: Budesonide Respules 0.5 MG/2 ML AMPUL.NEB. INHALATION ×2 (07:05→19:01)
[2022-03-08] MEDS: Albuterol 2.5 MG/3 ML VIAL.NEB. INHALATION ×2 (07:05→13:21)
[2022-03-08] MEDS: Isosorbide Mononitrate 30 MG Tablet PO (08:49)
[2022-03-08] MEDS: NIFEdipine 90 MG Tablet PO (08:49)
[2022-03-08] MEDS: Carvedilol 12.5 MG Tablet PO ×2 (08:49→22:35)
[2022-03-08] MEDS: Ascorbic Acid 500 MG Tablet PO (08:49)
[2022-03-08] MEDS: metFORMIN HCl 850 MG Tablet PO ×2 (08:49→16:36)
[2022-03-08] MEDS: Loratadine 10 MG Tablet PO (08:49)
[2022-03-08] MEDS: Fluticasone 0.05% 1 SPRAY NASAL.SRY 2 SPRAY NASAL (08:50)
[2022-03-08] MEDS: Pantoprazole Sodium 40 MG Tablet PO (08:50)
[2022-03-08] MEDS: hydroCHLOROthiazide 25 MG Tablet PO (08:50)
--- NOTE | 2022-03-08 15:00 | CASEMGMT ---
Social Work SW received referral from PT stating that pt was very unsteady and requiring assistance during evaluation and therapy is recommending short term SNF placement. SW met with pt and and introduced self and role of SW. Pt states prior to procedure, he was able to ambulate around house independently and provide for own ADLs. Pt does state that he feels very weak and that he needs rehab prior to returning home. SW provided pt with list of SNF providers including quality and resource use data and consistent with the patient's preferred geographic region, medical needs and insurance network. Pt preferred provider is TCU. SW explained insurance coverage and need for preauthorization. Referral made to TCU. They do have beds available and will review referral. SW will await determination. Nursing updated.] Plan: TCU, pending acceptance and precertification [place] [place]
[2022-03-08] MEDS: Ipratropium/Albuterol Sulfate 3 ML AMPUL.NEB INHALATION (19:01)
[2022-03-08] MEDS: 0.9% Saline Lock 10 ML Syringe IV (22:34)
[2022-03-08] MEDS: Montelukast 10 MG Tablet PO (22:37)
[2022-03-09] VITALS (8 sets, daily range): BP systolic 138–155; BP diastolic 62–75; PULSE 68–89; RESP 16–18; TEMP 36.6–37.2; O2SAT 93–96
[2022-03-09] MEDS: hydrALAZINE 25 MG Tablet PO ×2 (06:34→15:14)
[2022-03-09] MEDS: Albuterol 2.5 MG/3 ML VIAL.NEB. INHALATION ×2 (07:16→13:31)
[2022-03-09] MEDS: Budesonide Respules 0.5 MG/2 ML AMPUL.NEB. INHALATION (07:16)
--- NOTE | 2022-03-09 09:28 | CASEMGMT ---
Addendum entered by Tessa Grijalva 03/09/22 09:59: SW updated that TCU is able to accept pt and pre-cert has been submitted. Original Note: Social Work Note SW reviewed chart. Plan is for pt to go to TCU pending acceptance and pre-cert. SW placed a call to Dorie in admissions in TCU and left message regarding referral. Plan: TCU pending acceptance and pre-cert Tessa Grijalva DIRECTOR WORKERS COMPENSATION, CAMPAIGN MANAGEMENT SENIOR MANAGER
[2022-03-09] MEDS: Fluticasone 0.05% 1 SPRAY NASAL.SRY 2 SPRAY NASAL (09:39)
[2022-03-09] MEDS: metFORMIN HCl 850 MG Tablet PO (09:39)
[2022-03-09] MEDS: Isosorbide Mononitrate 30 MG Tablet PO (09:39)
[2022-03-09] MEDS: hydroCHLOROthiazide 25 MG Tablet PO (09:39)
[2022-03-09] MEDS: Carvedilol 12.5 MG Tablet PO (09:39)
[2022-03-09] MEDS: Ascorbic Acid 500 MG Tablet PO (09:39)
[2022-03-09] MEDS: NIFEdipine 90 MG Tablet PO (09:39)
[2022-03-09] MEDS: Loratadine 10 MG Tablet PO (09:39)
[2022-03-09] MEDS: Pantoprazole Sodium 40 MG Tablet PO (09:39)
--- NOTE | 2022-03-09 12:32 | CASEMGMT ---
COLLEEN BECERRA in to discuss MAGANA form with patient. RN MARIAM explained MAGANA form, patient voiced understanding. Pt signed form and filed in chart. Pt provided with a copy of signed MAGANA form. Patient had no further questions or concerns at this time. Pt present in room as well.
--- NOTE | 2022-03-09 13:33 | CASEMGMT ---
Social Work Note BRYAN received call from Joan with TCU stating pt was approved and can discharge to TCU, pt will need a COVID test today. BRYAN updated RN who updated physician. Plan: TCU today Tessa Grijalva MAILMASTER, BRANCH LEAD
[2022-03-09] MEDS: Acetaminophen 500 MG Tablet PO (15:25)
--- NOTE | 2022-03-09 15:30 | CASEMGMT ---
Social Work Note SW updated pt and his [place] that pt has been approved TCU and will discharge there today. SW updated pt and [place] that pt is on outbreak status and pt will need to tested weekly. Pt and [place] state understanding. [place] states that pt's granddaughter has a graduation constitution party on the and inquired about pt taking a leave and going to the graduation constitution party and then returning. BRYAN informed [place] that she will need to speak to staff on TCU regarding this. [place] state understanding. Plan: TCU skilled today Tessa Grijalva MOTOR ROOM CONTROLLER, RECHARGER
== END 2022-03-09 16:19 | disposition skilled nursing facility (03) ==
LOC: SDC 16:51 → MS3 16:51
PROVIDERS: Admitting Provider Urology; PCP Internal Medicine; Referring Provider Urology; Visit Provider Urology
PROC: (CPT 52601; principal; 2022-03-07 13:10)
DX: N40.1 Benign prostatic hyperplasia with lower urinary tract symptoms (principal); E11.51 Type 2 diabetes mellitus with diabetic peripheral angiopathy without gangrene; J44.9 Chronic obstructive pulmonary disease, unspecified; E11.22 Type 2 diabetes mellitus with diabetic chronic kidney disease; N18.4 Chronic kidney disease, stage 4 (severe); I12.9 Hypertensive chronic kidney disease with stage 1 through stage 4 chronic kidney disease, or unspecified chronic kidney disease; E78.5 Hyperlipidemia, unspecified; I25.10 Atherosclerotic heart disease of native coronary artery without angina pectoris; Z79.84 Long term (current) use of oral hypoglycemic drugs; Z87.891 Personal history of nicotine dependence; Z79.82 Long term (current) use of aspirin; Z79.899 Other long term (current) drug therapy; N13.8 Other obstructive and reflux uropathy; K21.9 Gastro-esophageal reflux disease without esophagitis; I25.2 Old myocardial infarction; G47.33 Obstructive sleep apnea (adult) (pediatric)
CPT/HCPCS: 52601; 00914; 82962; 87426; 88305; 94640; 97110; 97116; 97162; 97166; 99218; J7120; A4216; G0378; J2405

== ENCOUNTER 2022-03-09 16:23 | Inpatient (IN) | payer MEDICARE, SELFPAY ==
[2022-03-09 16:37] VITALS: BP 152/68; PULSE 70; RESP 16; TEMP 36.3; O2SAT 96
[2022-03-09 20:00] VITALS: PULSE 70; RESP 16; O2SAT 96
--- NOTE | 2022-03-09 20:24 | HP.PCM_ITS ---
HPI - General General Date of Admission: 03/09/22 HPI Narrative DESIREE ROSAS, is a 86 Male who presents with following: Dysuria twice in last 6 weeks, pain tip of penis. Given Keflex, then Ceftin, improved, but not resolved. Nocturia every 1 to 1.5 hours, weak stream, dribbling. 02/19/2022 Dr. Matos performed cystoscopy, Showed moderate obstructive BPH, incomplete bladder emptying. 03/07/2022 Dr. Matos performed TURP. Patient too weak to go home. 03/09/2022 Admit to TCU with debility, here for rehabilitation, strengthening, prior to discharge home with . [facility] Medical History (Updated 03/09/22 @ 20:[address] Jason Kearney MD) Abdominal aortic aneurysm (AAA) Acute cystitis with hematuria Ambulates with cane Aortic aneurysm Arthritis Asthma Atherosclerotic heart disease of [place] coronary artery without angina pectoris Back pain BiPAP (biphasic positive airway pressure) dependence Cancer Cardiology follow-up encounter Carotid bruit Chest pain Chronic cough CKD (chronic kidney disease) stage 4, GFR 15-29 ml/min COPD (chronic obstructive pulmonary disease) Daytime hypersomnia DDD (degenerative disc disease), lumbar Diabetes DM2 (diabetes mellitus, type 2) Dyslipidemia Easy bruising Essential (primary) hypertension Former smoker Gastric reflux High cholesterol History of echocardiogram History of edema History of heart attack History of hiatal hernia History of irregular heartbeat History of pain when walking History of renal disease History of steroid therapy History of stress test HLD (hyperlipidemia) Hoarseness Hypertension Injury of back Kidney stone Leg cramps MARIXA (obstructive sleep apnea) Overweight Patellar bursitis of right knee Peripheral vascular disease of extremity with claudication Pre-syncope PVD (peripheral vascular disease) Rectus sheath hematoma Recurrent urinary tract infection Restless legs Restless legs syndrome Seasonal allergies Shortness of breath on exertion Sleep apnea Somatic dysfunction of pelvic region Walker as ambulation aid Wears dentures Wears glasses Wears hearing aid Home Medications aspirin 81 mg PO QHS 03/28/14 [History Last Taken 02/27/22] isosorbide mononitrate 30 mg PO DAILY 03/28/14 [History Last Taken 03/09/22] pantoprazole 40 mg PO DAILY 03/28/14 [History Last Taken 03/09/22] ammonium lactate 12 % lotion 1 applic TOPICAL QD-BID PRN 02/06/18 [History Last Taken Unknown] triamcinolone acetonide 55 mcg nasal spray aerosol 2 spray INTRANASAL DAILY 09/04/18 [History Last Taken 03/09/22] handicap placcard #1 ea 09/28/19 [Rx Last Taken Unknown] ascorbate calcium (vitamin C) 500 mg tablet 500 mg PO DAILY 05/03/20 [History Last Taken 03/09/22] coenzyme Q10 100 mg capsule 100 mg PO DAILY 05/03/20 [History Last Taken Unknown] cholecalciferol (vitamin D3) 100 mcg (4,000 unit) tablet 100 mcg PO DAILY 11/03/20 [History Last Taken Unknown] hydralazine 25 mg tablet 25 mg PO TID tab 11/03/20 [History Last Taken 03/09/22] spacer #1 each 01/12/21 [Rx Last Taken Unknown] nitroglycerin 0.4 mg sublingual tablet 0.4 mg SUBLINGUAL Q5-15M PRN #25 tab 11/01/21 [Rx Last Taken Unknown] albuterol sulfate 90 mcg/actuation aerosol inhaler 2 inh INHALATION Q4H PRN #18 gm 11/27/21 [Rx Last Taken Unknown] metformin 850 mg tablet 850 mg PO BID tab 01/25/22 [History Last Taken 03/09/22] atorvastatin 40 mg tablet 40 mg PO QODAY #45 tab 02/20/22 [Rx Last Taken 03/08/22] ipratropium 0.5 mg-albuterol 3 mg (2.5 mg base)/3 mL nebulization soln 3 ml INHALATION 4X/DAY PRN PRN #90 ml 02/21/22 [Rx Last Taken 03/09/22] ipratropium bromide 42 mcg (0.06 %) nasal spray 2 spray INTRANASAL TID-QID PRN #15 ml 02/21/22 [Rx Last Taken Unknown] budesonide-formoterol [Symbicort] 2 puff INHALATION BID 03/09/22 [History Last Taken 03/06/22] carvedilol 12.5 mg PO BID 03/09/22 [History Last Taken 03/09/22] cephalexin 500 mg PO BID 03/09/22 [History Last Taken Unknown] hydrochlorothiazide 25 mg PO DAILY 03/09/22 [History Last Taken 03/09/22] loratadine 10 mg PO QDAY 03/09/22 [History Last Taken 03/09/22] montelukast 10 mg PO QHS 03/09/22 [History Last Taken 03/08/22] nifedipine [Adalat CC] 90 mg PO DAILY 03/09/22 [History Last Taken 03/09/22] Allergy/AdvReac Type Severity Reaction Status Date / Time cilostazol [From Pletal] Allergy Unknown Verified 03/07/22 11:51 felodipine Allergy Hives Verified 03/07/22 11:51 levofloxacin Allergy Hives Verified 03/07/22 11:51 Sulfa (Sulfonamide Allergy Unknown Verified 03/07/22 11:51 Antibiotics) Family History Father Diabetes Cancer Prostate cancer Surgical History (Updated 03/09/22 @ 20:[address] Jason Kearney MD) H/O aortic aneurysm repair (11/1998) History of coronary artery stent placement (02/17/08) History of endarterectomy (07/2018) History of hernia repair History of left heart catheterization (03/2014) History of transurethral resection of prostate History of vascular surgery (08/2018) Social History (Updated 03/09/22 @ 20:[address] Jason Kearney MD) household members: spouse Smoking Status: Former smoker how long ago did patient quit smokin years ago alcohol intake: current alcohol intake frequency: holidays/special occasions only details: hx of alcohol abuse substance use type: does not use caffeine: No what type of physical activity do you participate in: other details: Nustep frequency: 5-6 times per week duration: 15-30 minutes/day seatbelt use: always do you feel safe at home: Yes ROS Constitutional Constitutional: Denies chills, fever(s) or weight gain ENT HEENT: Denies headache(s), nasal congestion or nasal discharge Cardiovascular Cardiovascular: Denies chest pain or palpitations Respiratory/Chest Respiratory/Chest: Denies cough, excessive phlegm production or shortness of breath with exertion Gastrointestinal Gastrointestinal: Denies abdominal pain, nausea or vomiting Genitourinary Genitourinary: Denies dysuria Musculoskeletal Musculoskeletal: Denies joint pain or joint swelling Integumentary Integumentary: Denies rash or wounds Neurologic Neurologic: Denies focal weakness, numbness or tingling Psychiatric Psychiatric: Denies anxiety, auditory hallucinations, depression, homicidal ideation or suicidal ideation Physical Exam Const alert General Appearance: cooperative HEENT normocephalic Eyes PERRL and EOMs intact bilaterally Neck supple, no JVD and no carotid bruits Resp normal respiratory effort, normal air movement and clear to auscultation bilaterally Cardio regular rate and regular rhythm GI normal to inspection, nondistended, normoactive bowel sounds, non-tender and non-distended Bladder / Kidney Exam: catheter in place Extremity normal capillary refill General Extremity: Negative for edema Skin no rashes or lesions noted General Skin Exam: no breakdown Psych affect normal Appearance: appropriate Assessment & Plan Assessment/Plan (1) Debility: (2) BPH (benign prostatic hyperplasia): (3) Urinary retention: (4) History of transurethral resection of prostate: (5) Kidney stone: (6) Hypertension: (7) Hyperlipidemia: (8) Allergic rhinitis: (9) Diabetes mellitus: (10) Gastroesophageal reflux disease: (11) Coronary artery disease: (12) Abdominal aortic aneurysm: (13) Chronic obstructive pulmonary disease: (14) Obstructive sleep apnea: PLAN: 86 year old male with obstructive bph, urinary retention, underwent TURP 03/07/[address] Matos, too weak to go home, admit to TCU with debility, here for rehabilitation, strengthening, prior to discharge home with . * Debility - PT/OT. * Pain - Tylenol 1000mg q6h prn pain (1-10). * Bowel - Senna/colace 1 tablet bid, Dulcolax 10mg daily prn. * Adult immunization - Administer pneumonia vaccine, covid19 vaccine, flu vaccine as appropriate. * DVT prophylaxis - Hold, hematuria. * COPD - Advair 232-14 1 puff q12h, Duoneb 3ml 4x/day prn, Albuterol 2 puffs Q4h prn. * Vitamin C deficiency - Vitamin C 500mg daily. * Coronary artery disease - Coreg 12.5mg bid, Imdur 30mg daily, Aspirin 81mg daily, NTG 0.4mg sl q5m prn. * Hyperlipidemia - Atorvastatin 40mg every other day. * Urologic prophylaxis - Keflex 500mg bid x 7 days. * Hypertension - Coreg 12.5mg bid, Nifedipine 90mg daily, Hydralazine 25mg po tid, HCTZ 25mg daily. * Allergic rhinitis - Loratadine 10mg daily, Singulair 10mg qhs. * Diabetes Mellitus II - Metformin 850mg po bidcm. * GERD - Pantoprazole 40mg daily.
[2022-03-09 20:57] VITALS: BP 152/68; PULSE 70
[2022-03-09] MEDS: hydrALAZINE 25 MG Tablet PO (20:57)
[2022-03-09] MEDS: Montelukast 10 MG Tablet PO (20:57)
[2022-03-09] MEDS: Aspirin 81 MG TAB.CHEW PO (20:58)
[2022-03-10] MEDS: Senna/Docusate Sodium 1 Tablet PO ×2 (05:54→17:38)
[2022-03-10] MEDS: Loratadine 10 MG Tablet PO (05:55)
[2022-03-10] MEDS: Fluticasone/Salmeterol 232-14 Inhaler 1 PUFF INHALATION ×2 (05:58→17:38)
[2022-03-10] MEDS: Pantoprazole Sodium 40 MG Tablet PO (05:58)
[2022-03-10] MEDS: Cephalexin 500 MG Capsule PO ×2 (05:58→17:38)
[2022-03-10 05:59] VITALS: BP 150/68; PULSE 72
[2022-03-10] MEDS: hydrALAZINE 25 MG Tablet PO ×3 (05:59→20:34)
[2022-03-10] MEDS: Isosorbide Mononitrate 30 MG Tablet PO (05:59)
[2022-03-10] MEDS: Carvedilol 12.5 MG Tablet PO ×2 (05:59→17:38)
[2022-03-10] MEDS: NIFEdipine 90 MG Tablet PO (06:00)
[2022-03-10] MEDS: Ascorbic Acid 500 MG Tablet PO (06:00)
[2022-03-10] MEDS: hydroCHLOROthiazide 25 MG Tablet PO (06:00)
[2022-03-10 06:21] LABS: Bedside Glucose 146 mg/dL (74-106)
--- NOTE | 2022-03-10 06:30 | NURSING ---
Groin and coccyx noted to be reddened this morning. New orders placed for calmoseptine and nystatin powder.
--- NOTE | 2022-03-10 06:34 | NURSING ---
DNR form completed and verified by this nurse and RN. Pt wishes to be DNRCC-A no intubation. DNR paper placed in Dr. Kearney's folder to be signed.
[2022-03-10 08:00] VITALS: BMI 28.3
[2022-03-10] MEDS: metFORMIN HCl 850 MG Tablet PO ×2 (08:28→17:37)
[2022-03-10] MEDS: Acetaminophen 500 MG Tablet 1000 MG PO ×2 (08:30→20:37)
[2022-03-10 09:37] LABS: Anion Gap 8 (5-15); BUN 22 mg/dL (7-18); BUN/Creat Ratio 16.1 RATIO (10-20); Calcium,Total 8.9 mg/dL (8.5-10.1); Chloride 101 mmol/L (98-107); Creatinine, Serum 1.37 mg/dL (0.70-1.30); EST Glomerular Filtration Rate 53 mL/min (>60); Est Glom Filt Rate - Afr Amer 64 mL/min (>60); Glucose 243 mg/dL (74-106); Potassium 3.7 mmol/L (3.5-5.1); Sodium Level 135 mmol/L (136-145)
[2022-03-10 09:39] LABS: Absolute Lymphocyte Count 1.62 X10^3/uL (0.83-4.51); Absolute Neutrophil Count 6.3 X10^3/uL (2.0-7.7); Basophil# 0.03 X10^3/uL; Basophil% 0.3 % (0-1); Eosinophil# 0.13 X10^3/uL; Eosinophils% 1.4 % (0-5); Hematocrit 31.8 % (40-54); Hemoglobin 10.3 g/dL (13.0-16.5); Lymphocyte # 1.62 X10^3/ul (0.83-4.51); Mean Corp Hgb Conc 32.4 g/dL (32-36); Mean Corpuscular Volume 89.6 fL (80-94); Mean Platelet Vol. 10.8 fl (6.2-12.0); Monocyte# 0.84 X10^3/uL; Monocyte% 9.3 % (0-10); NRBC Flagged by Analyzer 0 % (0-5); Neutrophil # 6.34 X10^3/uL (2.7-7.7); Neutrophil % 70.6 % (47-70); Platelet Count 227 K/mm3 (150-450); RBC Distribution Width CV 13.7 % (11.6-14.6); Red Blood Count 3.55 M/mm3 (4.6-6.2)
[2022-03-10] MEDS: Tuberculin,Purif.prot.deriv. 50 TU/ML Vial 0.1 ML ID (11:24)
[2022-03-10 13:48] VITALS: BP 133/68; PULSE 67; RESP 18; TEMP 36.6; O2SAT 98
[2022-03-10 13:53] VITALS: BP 133/68; PULSE 67
--- NOTE | 2022-03-10 16:17 | NURSING ---
pt wanting to go for a walk. only walked around half of [place] and started feeling sob and wheezy. spo2 on ra only 85% pt placed in wc and back to room and placed on 2l o2 to recover and quickly recovered to 96% pt felt like legs felt like where going out on me
[2022-03-10 16:31] LABS: Bedside Glucose 104 mg/dL (74-106)
[2022-03-10] MEDS: Menthol/Lanolin/Calamine/Znox 113 GM Tube 1 APPLIC TOPICAL (17:39)
[2022-03-10] MEDS: Nystatin Powder 15gm Bottle 1 APPLIC TOPICAL (17:39)
[2022-03-10 20:34] VITALS: BP 145/75; PULSE 79
[2022-03-10] MEDS: Aspirin 81 MG TAB.CHEW PO (20:34)
[2022-03-10] MEDS: Montelukast 10 MG Tablet PO (20:35)
[2022-03-10] MEDS: Atorvastatin Calcium 40 MG Tablet PO (20:35)
[2022-03-10 20:40] VITALS: BP 145/75; PULSE 79; RESP 18; TEMP 36.6; O2SAT 91
--- NOTE | 2022-03-11 00:01 | NURSING ---
Pt requested medication for his RLS tonight, stating he usually takes ropinirole. Note left for Dr. Kearney notifying him patient is requesting that this medication be added to his orders.
[2022-03-11] MEDS: Loratadine 10 MG Tablet PO (05:13)
[2022-03-11] MEDS: Pantoprazole Sodium 40 MG Tablet PO (05:13)
[2022-03-11] MEDS: Carvedilol 12.5 MG Tablet PO ×2 (05:13→17:55)
[2022-03-11] MEDS: Ascorbic Acid 500 MG Tablet PO (05:13)
[2022-03-11 05:14] VITALS: BP 138/82; PULSE 75
[2022-03-11] MEDS: Senna/Docusate Sodium 1 Tablet PO ×2 (05:14→17:55)
[2022-03-11] MEDS: hydrALAZINE 25 MG Tablet PO ×3 (05:14→20:17)
[2022-03-11] MEDS: Cephalexin 500 MG Capsule PO ×2 (05:14→17:55)
[2022-03-11] MEDS: NIFEdipine 90 MG Tablet PO (05:14)
[2022-03-11] MEDS: hydroCHLOROthiazide 25 MG Tablet PO (05:15)
[2022-03-11] MEDS: Fluticasone/Salmeterol 232-14 Inhaler 1 PUFF INHALATION ×2 (05:15→17:55)
[2022-03-11] MEDS: Isosorbide Mononitrate 30 MG Tablet PO (05:15)
[2022-03-11] MEDS: Menthol/Lanolin/Calamine/Znox 113 GM Tube 1 APPLIC TOPICAL ×2 (05:18→17:54)
[2022-03-11] MEDS: Nystatin Powder 15gm Bottle 1 APPLIC TOPICAL ×2 (05:19→17:54)
[2022-03-11 06:31] LABS: Bedside Glucose 150 mg/dL (74-106)
[2022-03-11] MEDS: metFORMIN HCl 850 MG Tablet PO ×2 (08:30→17:54)
[2022-03-11] MEDS: Acetaminophen 500 MG Tablet 1000 MG PO ×3 (08:34→21:18)
[2022-03-11 10:00] VITALS: O2SAT 93
[2022-03-11] MEDS: Ipratropium Bromide 0.06% NASAL SPRAY 2 SPRAY NASAL (13:25)
[2022-03-11 13:28] VITALS: BP 129/62; PULSE 64
[2022-03-11 13:52] VITALS: BP 129/62; PULSE 69; RESP 16; TEMP 36.1; O2SAT 93
[2022-03-11] MEDS: Pramipexole Di-HCl 0.25 MG Tablet PO ×2 (14:49→21:18)
[2022-03-11 16:20] LABS: Bedside Glucose 123 mg/dL (74-106)
[2022-03-11] MEDS: Montelukast 10 MG Tablet PO (20:16)
[2022-03-11 20:17] VITALS: BP 140/68; PULSE 67
[2022-03-11] MEDS: Aspirin 81 MG TAB.CHEW PO (20:17)
[2022-03-11 22:01] VITALS: O2SAT 96
[2022-03-12] VITALS (8 sets, daily range): BP systolic 156–162; BP diastolic 66–71; PULSE 62–70; RESP 18–20; TEMP 36.1; O2SAT 91–96
[2022-03-12] MEDS: Cephalexin 500 MG Capsule PO ×2 (05:15→17:33)
[2022-03-12] MEDS: Cholecalciferol (VIT D3) 25 MCG TABLET (1,000 UNITS) 100 MCG PO (05:15)
[2022-03-12] MEDS: Isosorbide Mononitrate 30 MG Tablet PO (05:15)
[2022-03-12] MEDS: Senna/Docusate Sodium 1 Tablet PO ×2 (05:16→17:33)
[2022-03-12] MEDS: hydrALAZINE 25 MG Tablet PO ×3 (05:16→21:11)
[2022-03-12] MEDS: Loratadine 10 MG Tablet PO (05:16)
[2022-03-12] MEDS: Ascorbic Acid 500 MG Tablet PO (05:16)
[2022-03-12] MEDS: Fluticasone/Salmeterol 232-14 Inhaler 1 PUFF INHALATION ×2 (05:17→17:31)
[2022-03-12] MEDS: Pantoprazole Sodium 40 MG Tablet PO (05:17)
[2022-03-12] MEDS: NIFEdipine 90 MG Tablet PO (05:17)
[2022-03-12] MEDS: hydroCHLOROthiazide 25 MG Tablet PO (05:17)
[2022-03-12] MEDS: Carvedilol 12.5 MG Tablet PO ×2 (05:18→17:33)
[2022-03-12] MEDS: Menthol/Lanolin/Calamine/Znox 113 GM Tube 1 APPLIC TOPICAL ×2 (05:20→17:31)
[2022-03-12] MEDS: Nystatin Powder 15gm Bottle 1 APPLIC TOPICAL ×2 (05:20→21:09)
[2022-03-12 06:31] LABS: Bedside Glucose 145 mg/dL (74-106)
[2022-03-12] MEDS: Ipratropium Bromide 0.06% NASAL SPRAY 2 SPRAY NASAL ×3 (07:50→21:16)
[2022-03-12] MEDS: metFORMIN HCl 850 MG Tablet PO ×2 (07:51→17:33)
[2022-03-12] MEDS: Ipratropium/Albuterol Sulfate 3 ML AMPUL.NEB INHALATION (08:55)
--- NOTE | 2022-03-12 08:59 | NURSING ---
THIS NURSE TO PT ROOM AND PT STATED THAT HE FELT SOB. OXYGEN WAS 89-90%. PLACED PT ON O2 AT 1L,OXYGEN NOW 92%. CALLED FOR BREATHING TREATMENT. WILL CONTINUE TO MONITOR. RN AWARE
--- NOTE | 2022-03-12 09:39 | CASEMGMT ---
Social Work Met with patient for initial assessment. Introduced self and role. Pt wishes to have primary contact and son secondary contact. Discussed code status and MOLST form. Pt confirms DNR-CCA, no intubation. MOLST communicated to , placed in chart. Explained [employer] insurance and continued stay is not guaranteed with each update. Pt just started on O2, has new childers. The goal is for pt to return home at [facility] with . Son is supportive but works full-time. SW to continue to follow for DC planning. Teresa Grande, SENIOR LINUX SYSTEMS ENGINEER [employer] CONTROLS ENGINEER
--- NOTE | 2022-03-12 13:54 | PCM.PN.RX ---
Progress Note - Pharmacy Subjective: TCU Admission. 86 YOM came to the hospital for TURP procedure for BPH and was too weak for discharge home. Admitted to TCU with debility for rehabilitation and strengthening. Objective: Allergies cilostazol [From Pletal] Allergy (Verified 03/07/22 11:51) Unknown pt took a long time ago felodipine Allergy (Verified 03/07/22 11:51) Hives levofloxacin Allergy (Verified 03/07/22 11:51) Hives Sulfa (Sulfonamide Antibiotics) Allergy (Verified 03/07/22 11:51) Unknown Current Medications Generic Name Dose Route Start Last Admin Trade Name Freq PRN Reason Stop Dose Admin Acetaminophen 1,000 mg 03/09/22 20:40 03/11/22 21:18 Acetaminophen 500 Mg Tablet PO 1,000 mg Q6H PRN PRN Administration Pain Score 1-10 Albuterol Sulfate 2 puff 03/09/22 19:24 Albuterol Sulfate 8 Gm Inhaler (60 Puffs) INHALATION Q4H PRN PRN shortness of breath or wheezing Albuterol/Ipratropium 3 ml 03/09/22 20:37 03/12/22 08:55 Ipratropium/Albuterol Sulfate 3 Ml Ampul.Neb INHALATION 3 ml 4X/DAY PRN PRN Administration shortness of breath or wheezing Ascorbic Acid 500 mg 03/10/22 06:00 03/12/22 05:16 Ascorbic Acid 500 Mg Tablet PO 500 mg DAILY AMMY Administration Aspirin 81 mg 03/09/22 22:00 03/11/22 20:17 Aspirin 81 Mg Tab.Chew PO 81 mg QHS AMMY Administration Atorvastatin Calcium 40 mg 03/10/22 22:00 03/10/22 20:35 Atorvastatin Calcium 40 Mg Tablet PO 40 mg QODAY@2200 AMMY Administration Bisacodyl 10 mg 03/09/22 20:40 Bisacodyl 5 Mg Tablet PO DAILY PRN CONSTIPATION Calamine/Phenol 1 applic 03/10/22 18:00 03/12/22 05:20 Menthol/Lanolin/Calamine/Znox 113 Gm Tube TOPICAL 1 applic BID AMMY Administration Protocol Carvedilol 12.5 mg 03/10/22 06:00 03/12/22 05:18 Carvedilol 12.5 Mg Tablet PO 12.5 mg BID AMMY Administration Cephalexin 500 mg 03/10/22 06:00 03/12/22 05:15 Cephalexin 500 Mg Capsule PO 03/17/22 06:01 500 mg BID AMMY Administration Cholecalciferol 100 mcg 03/12/22 06:00 03/12/22 05:15 Cholecalciferol (Vit D3) 25 Mcg Tablet (1,000 Units) PO 100 mcg DAILY AMMY Administration Hydralazine HCl 25 mg 03/09/22 22:00 03/12/22 05:16 Hydralazine 25 Mg Tablet PO 25 mg TID AMMY Administration Hydrochlorothiazide 25 mg 03/10/22 06:00 03/12/22 05:17 Hydrochlorothiazide 25 Mg Tablet PO 25 mg DAILY AMMY Administration Ipratropium [place] 2 spray 03/11/22 13:22 03/12/22 07:50 Ipratropium [place] 0.06% Nasal [place] NASAL 2 spray TID PRN Administration ALLERGIES Isosorbide Mononitrate 30 mg 03/10/22 06:00 03/12/22 05:15 Isosorbide Mononitrate 30 Mg Tablet PO 30 mg DAILY AMMY Administration Loratadine 10 mg 03/10/22 06:00 03/12/22 05:16 Loratadine 10 Mg Tablet PO 10 mg DAILY AMMY Administration Metformin HCl 850 mg 03/10/22 08:00 03/12/22 07:51 Metformin Hcl 850 Mg Tablet PO 850 mg BIDCM [facility] Administration Montelukast Sodium 10 mg 03/09/22 22:00 03/11/22 20:16 Montelukast 10 Mg Tablet PO 10 mg QHS AMMY Administration Nifedipine 90 mg 03/10/22 06:00 03/12/22 05:17 Nifedipine 90 Mg Tablet PO 90 mg DAILY [facility] Administration Nitroglycerin 0.4 mg 03/09/22 19:48 Nitroglycerin (Inpatient Use) 0.4 Mg Tab.Subl SL Q5M PRN CARDIAC/CHEST PAIN Nystatin 1 applic 03/10/22 18:00 03/12/22 05:20 Nystatin Powder 15gm Bottle TOPICAL 1 applic BID [facility] Administration Protocol Pantoprazole Sodium 40 mg 03/10/22 06:00 03/12/22 05:17 Pantoprazole Sodium 40 Mg Tablet PO 40 mg DAILY AMMY Administration Pramipexole Dihydrochloride 0.25 mg 03/11/22 13:55 03/11/22 21:18 Pramipexole Di-Hcl 0.25 Mg Tablet PO 0.25 mg TID PRN Administration Restless leg Fluticasone/Salmeterol 1 puff 03/10/22 06:00 03/12/22 05:17 Fluticasone/Salmeterol 232-14 Inhaler INHALATION 1 puff Q12 AMMY Administration Senna/Docusate Sodium 1 tablet 03/10/22 06:00 03/12/22 05:16 Senna/Docusate Sodium 1 Tablet PO 1 tablet BID AMMY Administration Tuberculin PPD 0.1 ml 03/17/22 10:00 Tuberculin,Purif.Prot.Deriv. 50 Tu/Ml Vial ID 03/17/22 10:01 X1 ONE Problem List (Last Reviewed 03/09/22 @ 20:[address] Jason Kearney MD) Obstructive sleep apnea (Acute) Chronic obstructive pulmonary disease (Chronic) Abdominal aortic aneurysm (Acute) Coronary artery disease (Acute) Gastroesophageal reflux disease (Acute) Diabetes mellitus (Acute) Allergic rhinitis (Acute) Hyperlipidemia (Acute) Hypertension (Chronic) Kidney stone (Acute) History of transurethral resection of prostate (Acute) Urinary retention (Acute) BPH (benign prostatic hyperplasia) (Acute) Debility (Acute) Vital Signs Temp Pulse Resp BP Pulse Ox 97.0 F L 63 20 H 156/66 H 94 03/12/22 11:11 03/12/22 11:11 03/12/22 11:11 03/12/22 12:55 03/12/22 11:11 Oxygen Flow Rate (L/min) 1 Oxygen Delivery Method Nasal Cannula Weight: 89.584 kg Body Mass Index (BMI) 28.3 Sodium 135 mmol/L (136-145) L 03/10/22 08:15 Potassium 3.7 mmol/L (3.5-5.1) 03/10/22 08:15 Chloride 101 mmol/L (98-107) 03/10/22 08:15 Carbon Dioxide 26.0 mmol/L (21.0-32.0) 03/10/22 08:15 Anion Gap 8 (5-15) 03/10/22 08:15 BUN 22 mg/dL (7-18) H 03/10/22 08:15 Creatinine 1.37 mg/dL (0.70-1.30) H 03/10/22 08:15 Est GFR (MDRD) Af Amer 64 mL/min (>60) 03/10/22 08:15 Est GFR (MDRD) Non-Af 53 mL/min (>60) L 03/10/22 08:15 BUN/Creatinine Ratio 16.1 RATIO (10-20) 03/10/22 08:15 Glucose 243 mg/dL (74-106) H 03/10/22 08:15 Assessment/Plan: 1. Pain: acetaminophen 1000mg PO Q6H PRN pain 1-10. Resident has received 5 doses for pain from 5-9 in the neck. Please continue to monitor for increased pain and PRN usage. 2. Bowel: senna/docusate 1T PO BID and bisacodyl 10mg PO daily PRN constipation. Resident had a documented BM today. Please continue to monitor for constipation and PRN usage. 3. Urologic prophylaxis: cephalexin 500mg PO BID thru 03/17/22. Please continue to monitor for S/S of infection, renal function and diarrhea. 4. CAD/Hypertension: carvedilol 3.125mg PO BID, isosorbide mononitrate 30mg PO daily, nifedipine 90mg PO daily, aspirin 81mg PO QHS, hydralazine 25mg PO TID, hydrochlorothiazide 25mg PO daily and nitroglycerin 0.4mg SL Q5M PRN chest pain. Please continue to monitor HR (last 63), BP (last 156/66), chest pain, headache, facial flushing, S/S of bleeding, hemoglobin (last 10.3g/dL), potassium (last 3.7mmol/L) and sodium (last 135mmol/L). 5. COPD: fluticasone/salmeterol 232/14mcg 1 inhalation Q12, albuterol inhaler 2inhalations Q4H PRN SOB/wheezing (primary use) and Duoneb 3mL inhalation 4x/day PRN SOB/wheezing (secondary use). Please continue to monitor for SOB/wheezing and PRN usage. Please rinse mouth with water and spit following fluticasone/salmeterol administration to prevent thrush. 6. Hyperlipidemia: atorvastatin 40mg PO every other day. Please continue to monitor for muscle pain and lipid panel (last 03/27/21) at least annually. 7. GERD: pantoprazole 40mg PO daily. Please continue to monitor for S/S of GERD and diarrhea. 8. Allergic rhinitis: loratadine 10mg PO daily, montelukast 10mg PO QHS and ipratropium 0.06% nasal spray 2 sprays nasal TID PRN allergies. Please continue to monitor for S/S of allergies. 9. Vitamin C deficiency: ascorbic acid 500mg PO daily. Please continue to monitor. 10. Restless legs: pramipexole 0.25mg PO TID PRN restless legs. Please continue to monitor for S/S of restless legs and PRN usage. Psychotropic Medications: None Medication Irregularities: *1. Diabetes mellitus: metformin 850mg PO BIDCM. Please continue to monitor for S/S of hypoglycemia, hemoglobin A1c every 3 months (last 6.8% 07/06/21) and glucose (last 145mg/dL). Please consider ordering a hemoglobin A1c if clinically appropriate. Last from 07/06/21. Thanks. *2. cholecalciferol 100mcg PO daily. I did not see a documented indication for this medication. Please consider adding an indication if clinically appropriate. Please consider ordering a vitamin D level. Last level from 01/2014. Thanks. Date of Note:: 03/12/22
[2022-03-12] MEDS: Acetaminophen 500 MG Tablet 1000 MG PO (14:33)
[2022-03-12 16:45] LABS: Bedside Glucose 124 mg/dL (74-106)
[2022-03-12] MEDS: Atorvastatin Calcium 40 MG Tablet PO (21:10)
[2022-03-12] MEDS: Aspirin 81 MG TAB.CHEW PO (21:11)
[2022-03-12] MEDS: Montelukast 10 MG Tablet PO (21:11)
[2022-03-12] MEDS: Pramipexole Di-HCl 0.25 MG Tablet PO (21:35)
[2022-03-13] VITALS (7 sets, daily range): BP systolic 129–176; BP diastolic 55–79; PULSE 58–77; RESP 17; TEMP 36; O2SAT 92–98
--- NOTE | 2022-03-13 05:30 | NURSING ---
Pt childers noted to have sm all clot in tubing, urine is pink tinged this am, cath stat lock came loose during the night, pt states was pulling a little. New childers stat lock applied, will continue to monitor.
[2022-03-13] MEDS: Fluticasone/Salmeterol 232-14 Inhaler 1 PUFF INHALATION ×2 (05:32→16:59)
[2022-03-13] MEDS: Cholecalciferol (VIT D3) 25 MCG TABLET (1,000 UNITS) 100 MCG PO (05:32)
[2022-03-13] MEDS: Nystatin Powder 15gm Bottle 1 APPLIC TOPICAL ×2 (05:32→17:01)
[2022-03-13] MEDS: NIFEdipine 90 MG Tablet PO (05:33)
[2022-03-13] MEDS: Ascorbic Acid 500 MG Tablet PO (05:33)
[2022-03-13] MEDS: Senna/Docusate Sodium 1 Tablet PO ×2 (05:33→16:59)
[2022-03-13] MEDS: Pantoprazole Sodium 40 MG Tablet PO (05:33)
[2022-03-13] MEDS: Cephalexin 500 MG Capsule PO ×2 (05:34→16:59)
[2022-03-13] MEDS: hydrALAZINE 25 MG Tablet PO ×3 (05:34→21:59)
[2022-03-13] MEDS: Loratadine 10 MG Tablet PO (05:34)
[2022-03-13] MEDS: hydroCHLOROthiazide 25 MG Tablet PO (05:34)
[2022-03-13] MEDS: Isosorbide Mononitrate 30 MG Tablet PO (05:34)
[2022-03-13] MEDS: Menthol/Lanolin/Calamine/Znox 113 GM Tube 1 APPLIC TOPICAL ×2 (05:36→17:00)
[2022-03-13] MEDS: Ipratropium Bromide 0.06% NASAL SPRAY 2 SPRAY NASAL ×2 (05:38→22:01)
[2022-03-13 06:25] LABS: Bedside Glucose 130 mg/dL (74-106)
[2022-03-13] MEDS: Carvedilol 12.5 MG Tablet PO ×2 (08:23→16:59)
[2022-03-13] MEDS: metFORMIN HCl 850 MG Tablet PO ×2 (08:23→16:59)
[2022-03-13] MEDS: Acetaminophen 500 MG Tablet 1000 MG PO ×2 (09:01→17:05)
[2022-03-13] MEDS: COVID-19 VACC, MRNA(PFIZER)/PF 30 MCG/0.3 ML SYRINGE IM (09:04)
[2022-03-13 15:56] LABS: Bedside Glucose 148 mg/dL (74-106)
[2022-03-13] MEDS: Pramipexole Di-HCl 0.25 MG Tablet PO (17:06)
[2022-03-13] MEDS: Aspirin 81 MG TAB.CHEW PO (21:57)
[2022-03-13] MEDS: Montelukast 10 MG Tablet PO (21:57)
[2022-03-13] MEDS: Pramipexole Di-HCl 0.5 MG Tablet PO (22:04)
[2022-03-14] VITALS (11 sets, daily range): BP systolic 128–182; BP diastolic 63–82; PULSE 63–85; RESP 18–20; TEMP 35.5; O2SAT 96
[2022-03-14] MEDS: Isosorbide Mononitrate 30 MG Tablet PO (05:53)
[2022-03-14] MEDS: Fluticasone/Salmeterol 232-14 Inhaler 1 PUFF INHALATION ×2 (05:53→17:38)
[2022-03-14] MEDS: Loratadine 10 MG Tablet PO (05:53)
[2022-03-14] MEDS: Senna/Docusate Sodium 1 Tablet PO ×2 (05:53→17:39)
[2022-03-14] MEDS: hydroCHLOROthiazide 25 MG Tablet PO (05:53)
[2022-03-14] MEDS: Ascorbic Acid 500 MG Tablet PO (05:53)
[2022-03-14] MEDS: NIFEdipine 90 MG Tablet PO (05:53)
[2022-03-14] MEDS: Cephalexin 500 MG Capsule PO ×2 (05:53→17:38)
[2022-03-14] MEDS: Cholecalciferol (VIT D3) 25 MCG TABLET (1,000 UNITS) 100 MCG PO (05:53)
[2022-03-14] MEDS: Pantoprazole Sodium 40 MG Tablet PO (05:53)
[2022-03-14] MEDS: Bisacodyl 5 MG Tablet 10 MG PO (05:53)
[2022-03-14] MEDS: hydrALAZINE 25 MG Tablet PO (05:56)
[2022-03-14] MEDS: Nystatin Powder 15gm Bottle 1 APPLIC TOPICAL ×2 (05:56→20:02)
[2022-03-14] MEDS: Menthol/Lanolin/Calamine/Znox 113 GM Tube 1 APPLIC TOPICAL ×2 (05:56→17:38)
[2022-03-14] MEDS: Acetaminophen 500 MG Tablet 1000 MG PO ×3 (06:01→19:58)
[2022-03-14 06:21] LABS: Bedside Glucose 152 mg/dL (74-106)
--- NOTE | 2022-03-14 06:36 | NURSING ---
Urine in childers and tubing materials handling coordinator pink in color this am, no clots noted. Note left for to address blood pressures this am.
[2022-03-14] MEDS: metFORMIN HCl 850 MG Tablet PO ×2 (07:59→17:38)
[2022-03-14] MEDS: Carvedilol 12.5 MG Tablet PO ×2 (07:59→17:37)
--- NOTE | 2022-03-14 08:02 | NURSING ---
PT STATED TO THIS NURSE THAT HE WAS NAUSEATED AND PAINFUL ALL OVER. TYLENOL WAS GIVEN EARLIER. PT HAD BOOSTER ON 03/13/22! WILL CONTINUE TO MONITOR.
[2022-03-14] MEDS: Ipratropium/Albuterol Sulfate 3 ML AMPUL.NEB INHALATION (13:20)
[2022-03-14] MEDS: hydrALAZINE 50 MG Tablet PO ×2 (13:34→19:59)
[2022-03-14 14:19] LABS: Mucous, Urine 0 SEEN /hpf (<or=2+)
[2022-03-14 14:23] LABS: Color, Urine Yellow (Yellow); Glucose, Dipstick Normal (Normal); Ketone-Dipstick Negative (Negative); Leukocyte Esterase-Dipstick 100 /ul (Negative); Nitrite-Dipstick Negative (Negative); Occult Blood-Urine 250 /ul (Negative); Protein-Dipstick 500 mg/dl (Negative); Urine Bilirubin Dipstick Negative (Negative); Urine Clarity Sl. Cloudy (Clear); Urine Urobilinogen Normal (Normal)
--- NOTE | 2022-03-14 14:30 | CASEMGMT ---
Social Work IDT met with patient, and granddaughter for care plan meeting. Discussed patient's progress in PT/OT/SN. Explained [employer] insurance with NRD 03/13 and continued stay is not guaranteed with each review. The goal is for pt to return home with with childers removed and off of O2. Pt has 3 steps to enter his home. SW to continue to follow for DC planning. Teresa Grande, PRIVATE SECTOR EXECUTIVE ABSTRACTOR
[2022-03-14 14:34] LABS: Bacteria 1+ /hpf (None Seen); Red Blood Cells-Urine 25-50 SEEN /hpf (0-5); Squamous Epithelial Cells - UA 0-5 SEEN /hpf (0-5); White Blood Cells 10-25 SEEN /hpf (0-5)
[2022-03-14 15:36] LABS: Bedside Glucose 124 mg/dL (74-106)
[2022-03-14] MEDS: Atorvastatin Calcium 40 MG Tablet PO (19:59)
[2022-03-14] MEDS: Montelukast 10 MG Tablet PO (19:59)
[2022-03-14] MEDS: Aspirin 81 MG TAB.CHEW PO (19:59)
[2022-03-15] VITALS (9 sets, daily range): BP systolic 136–180; BP diastolic 65–75; PULSE 62–73; RESP 16–20; TEMP 36.4–36.7; O2SAT 94–97
[2022-03-15] MEDS: Loratadine 10 MG Tablet PO (05:03)
[2022-03-15] MEDS: Isosorbide Mononitrate 30 MG Tablet PO (05:04)
[2022-03-15] MEDS: Nystatin Powder 15gm Bottle 1 APPLIC TOPICAL ×2 (05:04→17:22)
[2022-03-15] MEDS: Cephalexin 500 MG Capsule PO ×2 (05:04→17:21)
[2022-03-15] MEDS: hydroCHLOROthiazide 25 MG Tablet PO (05:04)
[2022-03-15] MEDS: Fluticasone/Salmeterol 232-14 Inhaler 1 PUFF INHALATION ×2 (05:04→17:20)
[2022-03-15] MEDS: NIFEdipine 90 MG Tablet PO (05:05)
[2022-03-15] MEDS: Senna/Docusate Sodium 1 Tablet PO ×2 (05:05→17:21)
[2022-03-15] MEDS: Pantoprazole Sodium 40 MG Tablet PO (05:05)
[2022-03-15] MEDS: Cholecalciferol (VIT D3) 25 MCG TABLET (1,000 UNITS) 100 MCG PO (05:05)
[2022-03-15] MEDS: Menthol/Lanolin/Calamine/Znox 113 GM Tube 1 APPLIC TOPICAL ×2 (05:07→17:22)
[2022-03-15] MEDS: hydrALAZINE 50 MG Tablet PO ×3 (05:07→21:28)
[2022-03-15] MEDS: Ascorbic Acid 500 MG Tablet PO (05:07)
[2022-03-15 06:26] LABS: Bedside Glucose 211 mg/dL (74-106)
[2022-03-15] MEDS: metFORMIN HCl 850 MG Tablet PO ×2 (08:12→17:21)
[2022-03-15] MEDS: Carvedilol 12.5 MG Tablet PO ×2 (08:12→17:20)
[2022-03-15] MEDS: Acetaminophen 500 MG Tablet 1000 MG PO ×2 (08:16→21:29)
--- NOTE | 2022-03-15 12:59 | CASEMGMT ---
Social Work BIMS and PHQ-9 completed for MDS assessment. Teresa Grande, PUBLIC HEALTH DIRECTOR [employer]
--- NOTE | 2022-03-15 14:00 | NURSING ---
Family and patient notified of staff member testing positive.
[2022-03-15 16:35] LABS: Bedside Glucose 166 mg/dL (74-106)
[2022-03-15] MEDS: Pramipexole Di-HCl 0.5 MG Tablet PO (21:29)
[2022-03-15] MEDS: Aspirin 81 MG TAB.CHEW PO (21:29)
[2022-03-15] MEDS: Montelukast 10 MG Tablet PO (21:29)
[2022-03-16] VITALS (8 sets, daily range): BP systolic 120–174; BP diastolic 66–84; PULSE 63–74; RESP 14–18; TEMP 36.3–37.2; O2SAT 93–98
[2022-03-16] MEDS: hydrALAZINE 50 MG Tablet PO ×3 (06:19→20:55)
[2022-03-16] MEDS: NIFEdipine 90 MG Tablet PO (06:20)
[2022-03-16] MEDS: Cholecalciferol (VIT D3) 25 MCG TABLET (1,000 UNITS) 100 MCG PO (06:20)
[2022-03-16] MEDS: Isosorbide Mononitrate 30 MG Tablet PO (06:20)
[2022-03-16] MEDS: Pantoprazole Sodium 40 MG Tablet PO (06:20)
[2022-03-16] MEDS: Senna/Docusate Sodium 1 Tablet PO ×2 (06:20→17:59)
[2022-03-16] MEDS: hydroCHLOROthiazide 25 MG Tablet PO (06:20)
[2022-03-16] MEDS: Loratadine 10 MG Tablet PO (06:20)
[2022-03-16] MEDS: Cephalexin 500 MG Capsule PO ×2 (06:20→17:59)
[2022-03-16] MEDS: Ascorbic Acid 500 MG Tablet PO (06:21)
[2022-03-16] MEDS: Acetaminophen 500 MG Tablet 1000 MG PO ×2 (06:21→18:02)
[2022-03-16] MEDS: Menthol/Lanolin/Calamine/Znox 113 GM Tube 1 APPLIC TOPICAL ×3 (06:22→20:57)
[2022-03-16] MEDS: Nystatin Powder 15gm Bottle 1 APPLIC TOPICAL ×2 (06:22→18:01)
[2022-03-16] MEDS: Fluticasone/Salmeterol 232-14 Inhaler 1 PUFF INHALATION ×2 (06:23→17:58)
[2022-03-16 06:30] LABS: Bedside Glucose 141 mg/dL (74-106)
[2022-03-16] MEDS: Carvedilol 12.5 MG Tablet PO ×2 (08:27→17:59)
[2022-03-16] MEDS: metFORMIN HCl 850 MG Tablet PO ×2 (08:28→17:58)
[2022-03-16] MEDS: Bisacodyl 5 MG Tablet 10 MG PO (08:31)
[2022-03-16 16:50] LABS: Bedside Glucose 114 mg/dL (74-106)
[2022-03-16] MEDS: Ipratropium Bromide 0.06% NASAL SPRAY 2 SPRAY NASAL (18:03)
[2022-03-16] MEDS: Aspirin 81 MG TAB.CHEW PO (20:56)
[2022-03-16] MEDS: Atorvastatin Calcium 40 MG Tablet PO (20:56)
[2022-03-16] MEDS: Montelukast 10 MG Tablet PO (20:57)
[2022-03-17] VITALS (8 sets, daily range): BP systolic 136–167; BP diastolic 56–78; PULSE 60–69; RESP 15–18; TEMP 36.7–36.8; O2SAT 95–98
--- NOTE | 2022-03-17 05:06 | PCA ---
patient had [address] 230 am when doing rounds again at 430 patient had 1825 in childers and it was all blood color
[2022-03-17] MEDS: hydrALAZINE 50 MG Tablet PO ×3 (05:50→22:05)
[2022-03-17] MEDS: Fluticasone/Salmeterol 232-14 Inhaler 1 PUFF INHALATION ×2 (05:50→18:14)
[2022-03-17] MEDS: Loratadine 10 MG Tablet PO (05:53)
[2022-03-17] MEDS: hydroCHLOROthiazide 25 MG Tablet PO (05:54)
[2022-03-17] MEDS: Cephalexin 500 MG Capsule PO (05:54)
[2022-03-17] MEDS: Isosorbide Mononitrate 30 MG Tablet PO (05:54)
[2022-03-17] MEDS: NIFEdipine 90 MG Tablet PO (05:55)
[2022-03-17] MEDS: Pantoprazole Sodium 40 MG Tablet PO (05:56)
[2022-03-17] MEDS: Senna/Docusate Sodium 1 Tablet PO ×2 (05:56→18:16)
[2022-03-17] MEDS: Cholecalciferol (VIT D3) 25 MCG TABLET (1,000 UNITS) 100 MCG PO (05:57)
[2022-03-17] MEDS: Ascorbic Acid 500 MG Tablet PO (05:57)
[2022-03-17] MEDS: Nystatin Powder 15gm Bottle 1 APPLIC TOPICAL ×2 (05:58→22:06)
[2022-03-17 06:20] LABS: Bedside Glucose 131 mg/dL (74-106)
[2022-03-17 07:07] LABS: Anion Gap 6 (5-15); BUN 22 mg/dL (7-18); Calcium,Total 9.3 mg/dL (8.5-10.1); Chloride 102 mmol/L (98-107); Creatinine, Serum 1.16 mg/dL (0.70-1.30); EST Glomerular Filtration Rate 64 mL/min (>60); Est Glom Filt Rate - Afr Amer 77 mL/min (>60); Estimated Creatinine Clearance 48.95 ml/min; Glucose 132 mg/dL (74-106); Potassium 3.7 mmol/L (3.5-5.1); Sodium Level 136 mmol/L (136-145)
[2022-03-17 07:24] LABS: Absolute Lymphocyte Count 2.37 X10^3/uL (0.83-4.51); Basophil# 0.05 X10^3/uL; Basophil% 0.6 % (0-1); Eosinophil# 0.24 X10^3/uL; Eosinophils% 2.8 % (0-5); Hematocrit 31.1 % (40-54); Hemoglobin 10.1 g/dL (13.0-16.5); Lymphocyte # 2.37 X10^3/ul (0.83-4.51); Lymphocyte % 27.6 % (19-41); Mean Corp Hgb Conc 32.5 g/dL (32-36); Mean Corpuscular Volume 89.4 fL (80-94); Mean Platelet Vol. 10.9 fl (6.2-12.0); Monocyte# 0.85 X10^3/uL; Monocyte% 9.9 % (0-10); NRBC Flagged by Analyzer 0 % (0-5); Neutrophil # 4.96 X10^3/uL (2.7-7.7); Neutrophil % 57.8 % (47-70); Platelet Count 293 K/mm3 (150-450); RBC Distribution Width CV 13.6 % (11.6-14.6); RBC Distribution Width SD 43.9 fl (35.1-43.9); Red Blood Count 3.48 M/mm3 (4.6-6.2); White Blood Count 8.6 K/mm3 (4.4-11.0)
[2022-03-17] MEDS: metFORMIN HCl 850 MG Tablet PO ×2 (08:06→18:16)
[2022-03-17] MEDS: Ipratropium Bromide 0.06% NASAL SPRAY 2 SPRAY NASAL (08:06)
[2022-03-17] MEDS: Carvedilol 12.5 MG Tablet PO ×2 (08:06→18:16)
[2022-03-17] MEDS: Acetaminophen 500 MG Tablet 1000 MG PO ×2 (08:11→18:11)
[2022-03-17] MEDS: Tuberculin,Purif.prot.deriv. 50 TU/ML Vial 0.1 ML ID (10:49)
--- NOTE | 2022-03-17 11:26 | NURSING ---
PT COMPLAINED TO THIS NURSE THAT HE STILL FELT BURNING WITH URINATION. ASSESSED,PENIS IS RED ON TIP AND PT STATED IT WAS SORE. URINE IN CLAY BAG LIGHT PINK BUT CLEAR. KEFLEX LAST DOSE WAS THIS MORNING. PT ALSO ASKED IF HE WAS TO SEE DR. MOORE SOON AND WOULD LIKE TO TALK TO DR. COLLINS SATURDAY MORNING. WILL NOTIFIE . AND HAVE STAFF CALL DR. MOORE OFFICE ON SATURDAY. PT ASKING WHEN CLAY COULD COME OUT,THIS NURSE STATED TO PT THAT IT WAS UP TO NURSING STAFF AND I COULD TAKE IT OUT NOW IF PT WOULD LIKE. PT STATED NO LETS JUST WHAT TILL I TALK TO THE DR. MACIAS AWARE
[2022-03-17] MEDS: Ipratropium/Albuterol Sulfate 3 ML AMPUL.NEB INHALATION (13:10)
--- NOTE | 2022-03-17 14:05 | NURSING ---
PT LEFT AT 1355 WITH TO FAMILY GRADUATION DEMOCRAT THAT DR.KWOK MCDONNELL. PT TOOK O2 TANK IN CASE HE NEED OXYGEN.
--- NOTE | 2022-03-17 18:06 | NURSING ---
PT RETURNED TO FLOOR FROM [place] AT 1800.
[2022-03-17 19:01] LABS: Bedside Glucose 136 mg/dL (74-106)
[2022-03-17] MEDS: Ketoconazole Cream 1 APPLIC TOPICAL (19:07)
[2022-03-17 19:16] LABS: Bacteria 0 SEEN /hpf (None Seen); Mucous, Urine 0 SEEN /hpf (<or=2+); Squamous Epithelial Cells - UA 0 SEEN /hpf (0-5)
[2022-03-17 19:21] LABS: Color, Urine Yellow (Yellow); Glucose, Dipstick Normal (Normal); Ketone-Dipstick Negative (Negative); Leukocyte Esterase-Dipstick 500 /ul (Negative); Nitrite-Dipstick Negative (Negative); Occult Blood-Urine 150 /ul (Negative); Protein-Dipstick 500 mg/dl (Negative); Specific Gravity, Urine 1.015 (1.002-1.030); Urine Bilirubin Dipstick Negative (Negative); Urine Clarity Clear (Clear); Urine Urobilinogen Normal (Normal)
[2022-03-17 19:28] LABS: Red Blood Cells-Urine 10-25 SEEN /hpf (0-5)
[2022-03-17 19:29] LABS: White Blood Cells 5-10 SEEN /hpf (0-5)
[2022-03-17] MEDS: Menthol/Lanolin/Calamine/Znox 113 GM Tube 1 APPLIC TOPICAL (22:05)
[2022-03-17] MEDS: Aspirin 81 MG TAB.CHEW PO (22:06)
[2022-03-17] MEDS: Montelukast 10 MG Tablet PO (22:07)
[2022-03-18] VITALS (10 sets, daily range): BP systolic 125–187; BP diastolic 56–84; PULSE 60–72; RESP 18–20; TEMP 36.6; O2SAT 95–97
[2022-03-18] MEDS: Cholecalciferol (VIT D3) 25 MCG TABLET (1,000 UNITS) 100 MCG PO (05:35)
[2022-03-18] MEDS: Fluticasone/Salmeterol 232-14 Inhaler 1 PUFF INHALATION ×2 (05:36→17:34)
[2022-03-18] MEDS: Loratadine 10 MG Tablet PO (05:36)
[2022-03-18] MEDS: Ascorbic Acid 500 MG Tablet PO (05:36)
[2022-03-18] MEDS: Senna/Docusate Sodium 1 Tablet PO ×2 (05:36→17:38)
[2022-03-18] MEDS: Menthol/Lanolin/Calamine/Znox 113 GM Tube 1 APPLIC TOPICAL ×2 (05:36→17:35)
[2022-03-18] MEDS: NIFEdipine 90 MG Tablet PO (05:36)
[2022-03-18] MEDS: Pantoprazole Sodium 40 MG Tablet PO (05:36)
[2022-03-18] MEDS: hydroCHLOROthiazide 25 MG Tablet PO (05:36)
[2022-03-18] MEDS: Isosorbide Mononitrate 30 MG Tablet PO (05:36)
[2022-03-18] MEDS: hydrALAZINE 50 MG Tablet PO ×3 (05:37→21:15)
[2022-03-18] MEDS: Nystatin Powder 15gm Bottle 1 APPLIC TOPICAL ×2 (05:37→17:37)
[2022-03-18] MEDS: Acetaminophen 500 MG Tablet 1000 MG PO ×2 (05:45→17:40)
[2022-03-18 06:31] LABS: Bedside Glucose 139 mg/dL (74-106)
[2022-03-18] MEDS: Ketoconazole Cream 1 APPLIC TOPICAL ×2 (07:20→17:34)
[2022-03-18] MEDS: metFORMIN HCl 850 MG Tablet PO ×2 (08:16→17:36)
[2022-03-18] MEDS: Carvedilol 12.5 MG Tablet PO ×2 (08:17→17:36)
--- NOTE | 2022-03-18 14:49 | NURSING ---
THIS NURSE WALKED PT IN [facility]. PT TOLERATED WELL.
[2022-03-18 16:45] LABS: Bedside Glucose 148 mg/dL (74-106)
--- NOTE | 2022-03-18 20:20 | NURSING ---
This nurse was in rm 5 and heard a thump, went to check and found patient sitting on the floor in his room. Pt states he went to get up from his chair to get ready for bed, noticed that his childers tube was stuck in his chair, states he bent over to get it and lost his balance, falling against his closet door. Pt states he thinks his head hit the door. Alert and oriented, skin warm and dry, able to move all 4 extremities, neuro assessment WNL, VSS, pt able to get up with minimal assist and back to chair. Encouraged pt to call for help this night even though he is up ad ena in room. Pt verbalizes understanding, denies any pain, N/T or other injuries. Call light in reach, will continue to monitor. Will also notify on weekly Saturday phone call.
[2022-03-18] MEDS: Montelukast 10 MG Tablet PO (21:15)
[2022-03-18] MEDS: Atorvastatin Calcium 40 MG Tablet PO (21:15)
[2022-03-18] MEDS: Aspirin 81 MG TAB.CHEW PO (21:15)
[2022-03-18] MEDS: Ipratropium Bromide 0.06% NASAL SPRAY 2 SPRAY NASAL (21:16)
[2022-03-18] MEDS: Ipratropium/Albuterol Sulfate 3 ML AMPUL.NEB INHALATION (21:30)
[2022-03-18] MEDS: Pramipexole Di-HCl 0.5 MG Tablet PO (21:54)
[2022-03-19] MEDS: Ketoconazole Cream 1 APPLIC TOPICAL ×2 (05:19→17:38)
[2022-03-19] MEDS: Ipratropium Bromide 0.06% NASAL SPRAY 2 SPRAY NASAL ×2 (05:22→21:28)
[2022-03-19] MEDS: Fluticasone/Salmeterol 232-14 Inhaler 1 PUFF INHALATION ×2 (05:23→17:36)
[2022-03-19 05:27] VITALS: BP 157/72; PULSE 69
[2022-03-19] MEDS: hydrALAZINE 50 MG Tablet PO ×3 (05:27→21:26)
[2022-03-19] MEDS: Isosorbide Mononitrate 30 MG Tablet PO (05:27)
[2022-03-19] MEDS: Loratadine 10 MG Tablet PO (05:27)
[2022-03-19] MEDS: Cholecalciferol (VIT D3) 25 MCG TABLET (1,000 UNITS) 100 MCG PO (05:27)
[2022-03-19] MEDS: NIFEdipine 90 MG Tablet PO (05:27)
[2022-03-19] MEDS: Pantoprazole Sodium 40 MG Tablet PO (05:27)
[2022-03-19] MEDS: Ascorbic Acid 500 MG Tablet PO (05:27)
[2022-03-19] MEDS: hydroCHLOROthiazide 25 MG Tablet PO (05:27)
[2022-03-19] MEDS: Senna/Docusate Sodium 1 Tablet PO ×2 (05:32→17:37)
[2022-03-19] MEDS: Menthol/Lanolin/Calamine/Znox 113 GM Tube 1 APPLIC TOPICAL ×2 (05:32→17:36)
[2022-03-19] MEDS: Nystatin Powder 15gm Bottle 1 APPLIC TOPICAL ×2 (05:33→17:40)
[2022-03-19 06:30] LABS: Bedside Glucose 139 mg/dL (74-106)
[2022-03-19] MEDS: metFORMIN HCl 850 MG Tablet PO ×2 (08:28→17:37)
[2022-03-19] MEDS: Carvedilol 12.5 MG Tablet PO ×2 (08:29→17:37)
[2022-03-19] MEDS: Acetaminophen 500 MG Tablet 1000 MG PO ×2 (08:33→21:43)
[2022-03-19] MEDS: Bisacodyl 5 MG Tablet 10 MG PO (08:34)
--- NOTE | 2022-03-19 10:08 | NURSING ---
Addendum entered by Yessica Ramos 03/19/22 10:54: Childers removed at this time per order. Original Note: Dr. Matos's office was called and asked if it was ok to d/c childers and start voiding trials. Office staff stated they would pass the message onto Dr. Matos and let us know.
[2022-03-19 14:00] VITALS: BP 141/73; PULSE 60; RESP 20; TEMP 36.2; O2SAT 96
[2022-03-19 14:33] VITALS: PULSE 60
--- NOTE | 2022-03-19 14:48 | CASEMGMT ---
Social Work Patient request to speak with social work to collaborate on setting discharge date. This social services director met with patient in room. Patient requesting for discharge date to be set for 03/22/2022. Therapy/medical team agreeable to patient request. Physical therapy is recommending for patient to continue with outpatient physical therapy. Patient is agreeable to recommendation and request for outpatient therapy to set up through [facility]. Patient reports plans to discharge to home with spouse and patient spouse will provide transportation at time of discharge. Patient reports that patient spouse will be able to transport patient to outpatient physical therapy appointments as well. Patient reports to have a walker already set up in the home. This social services director educating patient on appeal rights. Patient signing Notice of Medicare Non-Coverage, copy placed on patient chart and original provided to patient. Patient denies any questions/concerns on returning to home. Proposed discharge date: 03/22/2022 PLAN: Discharge to home with spouse with outpatient physical therapy. Social Work will continue to follow to set up outpatient physical therapy. Delaney ALLEN, RABIA
[2022-03-19 16:45] LABS: Bedside Glucose 137 mg/dL (74-106)
--- NOTE | 2022-03-19 19:35 | PCM.DC.SUM ---
Providers Date of Admission: 03/09/22 Primary Care Physician: Dr. Emeka Horn MD Reason For Visit: SYST TURP OLYMPEcinity Diagnosis Discharge Diagnosis (1) Debility: Status: Acute Code(s): R53.81 - Other malaise (2) BPH (benign prostatic hyperplasia): Status: Acute Code(s): N40.0 - Benign prostatic hyperplasia without lower urinary tract symptoms (3) Urinary retention: Status: Acute Code(s): R33.9 - Retention of urine, unspecified (4) History of transurethral resection of prostate: Status: Acute Code(s): Z98.890 - Other specified postprocedural states; Z90.79 - Acquired absence of other genital organ(s) (5) Kidney stone: Status: Acute Code(s): N20.0 - Calculus of kidney (6) Hypertension: Status: Chronic Code(s): I10 - Essential (primary) hypertension (7) Hyperlipidemia: Status: Acute Code(s): E78.5 - Hyperlipidemia, unspecified (8) Allergic rhinitis: Status: Acute Code(s): J30.9 - Allergic rhinitis, unspecified (9) Diabetes mellitus: Status: Acute Code(s): E11.9 - Type 2 diabetes mellitus without complications (10) Gastroesophageal reflux disease: Status: Acute Code(s): K21.9 - Gastro-esophageal reflux disease without esophagitis (11) Coronary artery disease: Status: Acute Code(s): I25.10 - Atherosclerotic heart disease of [place] coronary artery without angina pectoris (12) Abdominal aortic aneurysm: Status: Acute Code(s): I71.4 - Abdominal aortic aneurysm, without rupture (13) Chronic obstructive pulmonary disease: Status: Chronic Code(s): J44.9 - Chronic obstructive pulmonary disease, unspecified (14) Obstructive sleep apnea: Status: Acute Code(s): G47.33 - Obstructive sleep apnea (adult) (pediatric) Medications at Discharge Home Medications aspirin 81 mg PO QHS 03/28/14 isosorbide mononitrate 30 mg PO DAILY 03/28/14 pantoprazole 40 mg PO DAILY 03/28/14 ammonium lactate 12 % lotion 1 applic TOPICAL QD-BID PRN 02/06/18 triamcinolone acetonide 55 mcg nasal spray aerosol 2 spray INTRANASAL DAILY 11/29/18 handicap placcard #1 ea 09/28/19 ascorbate calcium (vitamin C) 500 mg tablet 500 mg PO DAILY 05/03/20 coenzyme Q10 100 mg capsule 100 mg PO DAILY 05/03/20 cholecalciferol (vitamin D3) 100 mcg (4,000 unit) tablet 100 mcg PO DAILY 11/03/20 hydralazine 25 mg tablet 25 mg PO TID tab 11/03/20 spacer #1 each 01/12/21 nitroglycerin 0.4 mg sublingual tablet 0.4 mg SUBLINGUAL Q5-15M PRN #25 tab 11/01/21 albuterol sulfate 90 mcg/actuation aerosol inhaler 2 inh INHALATION Q4H PRN #18 gm 11/27/21 metformin 850 mg tablet 850 mg PO BID tab 01/25/22 atorvastatin 40 mg tablet 40 mg PO QODAY #45 tab 02/20/22 ipratropium 0.5 mg-albuterol 3 mg (2.5 mg base)/3 mL nebulization soln 3 ml INHALATION 4X/DAY PRN PRN #90 ml 02/21/22 ipratropium bromide 42 mcg (0.06 %) nasal spray 2 spray INTRANASAL TID-QID PRN #15 ml 02/21/22 budesonide-formoterol [Symbicort] 2 puff INHALATION BID 03/09/22 carvedilol 12.5 mg PO BID 03/09/22 hydrochlorothiazide 25 mg PO DAILY 03/09/22 loratadine 10 mg PO QDAY 03/09/22 montelukast 10 mg PO QHS 03/09/22 nifedipine [Adalat CC] 90 mg PO DAILY 03/09/22 acetaminophen 1,000 mg PO Q6H PRN PRN #0 tab 03/19/22 Hospital Course Operations TURP Procedures None Summary of Care Provided Minutes Spent on Discharge: 35 Hospital Course: 86 year old male with obstructive bph, urinary retention, underwent TURP 03/07/[address] Matos, too weak to go home, admit to TCU with debility, here for rehabilitation, strengthening, prior to discharge home with . Discharge home with 03/22/2022, Outpatient PT. Physical Exam Const alert General Appearance: cooperative HEENT normocephalic Eyes PERRL and EOMs intact bilaterally Neck supple, no JVD and no carotid bruits Resp normal respiratory effort, normal air movement and clear to auscultation bilaterally Cardio regular rate and regular rhythm GI normal to inspection, nondistended, normoactive bowel sounds, non-tender and non-distended Extremity normal capillary refill General Extremity: Negative for edema Skin no rashes or lesions noted General Skin Exam: no breakdown Psych affect normal Appearance: appropriate Weight / BMI Weight Weight: 89.103 kg Body Mass Index (BMI) 28.3 ABG / Lab / Microbiology Data Result Diagrams: 03/17/22 06:10 03/17/22 06:10 Laboratory: Laboratory Results - last 24 hr 03/19/22 06:07: POC Glucose 139 H 03/19/22 16:27: POC Glucose 137 H Microbiology: Microbiology 03/19/22 14:30 Nasal Secretion SARS-CoV-2 Antigen (Rapid) - Final 03/17/22 19:00 Urine Catheter - Edwards Urine Culture - Preliminary Culture exhibits no growth. 03/14/22 11:00 Urine Catheter - Edwards Urine Culture - Final Culture exhibits no growth. 03/16/22 06:17 Nasal Secretion SARS-CoV-2 Antigen (Rapid) - Final 03/10/22 06:01 Nasal Secretion SARS-CoV-2 Antigen (Rapid) - Final D/C Instructions Discharge Diet: No restrictions Discharge Activity: Return to Normal Activity, May Shower and Use Walker Weight Bearing Status: Weight bearing as tolerated Call your doctor if you observe: Fever of 101 or Higher, Inability to urinate, Inability to have a bowel movement, Shortness of breath, Dizziness, Fainting spells, Swelling in the ankles, Chest pain and Uncontrolled pain Additional Instructions: Discharge home with 03/22/2022, Outpatient PT. Please Follow Up With: Mikael Matos MD Meaningful Use Info Meaningful Use Diagnoses (Choose all that apply): None applicable Discharge Plan Admission Admit Date/Time: 03/09/22 16:23 Primary Reason for Your Visit: Debility. Attending Provider: Jason Kearney Chi Primary Care Provider: Emeka Horn Instructions Additional Instructions / Restrictions: Discharge home with 03/22/2022, Outpatient PT. Discharge Orders/Prescriptions Prescriptions: New acetaminophen 500 mg Tablet 1,000 mg PO Q6H PRN PRN (Reason: Pain Score 1-10) Qty: 0 RF: 0 Continued ammonium lactate 12 % lotion 1 applic TOPICAL QD-BID PRN (Reason: dry skin ) RF: 0 triamcinolone acetonide [Nasacort] 55 mcg aerosol,spray 2 spray INTRANASAL DAILY RF: 0 coenzyme Q10 [Co Q-10] 100 mg capsule 100 mg PO DAILY RF: 0 ascorbate calcium (vitamin C) 500 mg tablet 500 mg PO DAILY RF: 0 hydralazine 25 mg tablet 25 mg PO TID RF: 0 cholecalciferol (vitamin D3) 100 mcg (4,000 unit) tablet 100 mcg (4,000 unit) tablet 100 mcg PO DAILY RF: 0 nitroglycerin [Nitrostat] 0.4 mg tablet, sublingual 0.4 mg SUBLINGUAL Q5-15M PRN (Reason: chest pain) Qty: 25 RF: 2 ipratropium-albuterol 0.5 mg-3 mg(2.5 mg base)/3 mL solution for nebulization 3 ml inhalation 4X/DAY PRN PRN (Reason: shortness of breath or wheezing) Qty: 90 RF: 6 ipratropium bromide 42 mcg (0.06 %) spray,non-aerosol 2 spray INTRANASAL TID-QID PRN (Reason: allergy symptoms) Qty: 15 RF: 6 metformin 850 mg tablet 850 mg PO BID RF: 0 pantoprazole 40 MG tablet 40 mg PO DAILY RF: 0 aspirin 81 MG tablet,chewable 81 mg PO QHS RF: 0 isosorbide mononitrate 30 MG tablet 30 mg PO DAILY RF: 0 carvedilol 12.5 mg tablet 12.5 mg PO BID RF: 0 nifedipine [Adalat CC] 90 mg tablet extended release 90 mg PO DAILY RF: 0 montelukast 10 mg tablet 10 mg PO QHS RF: 0 hydrochlorothiazide 25 mg tablet 25 mg PO DAILY RF: 0 budesonide-formoterol [Symbicort] 160-4.5 mcg/actuation HFA aerosol inhaler 2 puff INHALATION BID RF: 0 loratadine 10 mg capsule 10 mg PO QDAY RF: 0 albuterol sulfate [Ventolin HFA] 90 mcg/actuation HFA aerosol inhaler 2 inh INHALATION Q4H PRN (Reason: shortness of breath or wheezing) Qty: 18 RF: 6 atorvastatin 40 mg tablet 40 mg PO QODAY Qty: 45 RF: 3 Discontinued cephalexin 500 mg capsule 500 mg PO BID RF: 0 No Action (DME) handicap placcard Qty: 1 RF: 0 (DME) spacer See Rx Instructions .ROUTE .MEDSUPPLY Qty: 1 RF: 0 Referrals / Follow Up: Mikael Matos MD [STAFF PHYSICIAN] - (follow up after discharge ) Emeka Horn MD [Primary Care Provider] - Disposition Disposition (needs filled in before D/C Order can be placed): Home, Self Care
[2022-03-19 21:26] VITALS: BP 152/64; PULSE 65
[2022-03-19] MEDS: Montelukast 10 MG Tablet PO (21:27)
[2022-03-19] MEDS: Aspirin 81 MG TAB.CHEW PO (21:27)
[2022-03-19] MEDS: Pramipexole Di-HCl 0.5 MG Tablet PO (21:28)
[2022-03-19 21:35] VITALS: PULSE 60; RESP 17; O2SAT 97
[2022-03-19] MEDS: Ipratropium/Albuterol Sulfate 3 ML AMPUL.NEB INHALATION (21:35)
[2022-03-20] MEDS: Fluticasone/Salmeterol 232-14 Inhaler 1 PUFF INHALATION ×2 (05:40→17:18)
[2022-03-20] MEDS: Ketoconazole Cream 1 APPLIC TOPICAL ×2 (05:41→17:20)
[2022-03-20] MEDS: Pantoprazole Sodium 40 MG Tablet PO (05:41)
[2022-03-20] MEDS: Ipratropium Bromide 0.06% NASAL SPRAY 2 SPRAY NASAL (05:41)
[2022-03-20 05:42] VITALS: BP 154/69; PULSE 62
[2022-03-20] MEDS: Isosorbide Mononitrate 30 MG Tablet PO (05:42)
[2022-03-20] MEDS: hydrALAZINE 50 MG Tablet PO ×3 (05:42→20:33)
[2022-03-20] MEDS: Loratadine 10 MG Tablet PO (05:42)
[2022-03-20] MEDS: hydroCHLOROthiazide 25 MG Tablet PO (05:42)
[2022-03-20] MEDS: NIFEdipine 90 MG Tablet PO (05:42)
[2022-03-20] MEDS: Senna/Docusate Sodium 1 Tablet PO ×2 (05:42→17:19)
[2022-03-20] MEDS: Cholecalciferol (VIT D3) 25 MCG TABLET (1,000 UNITS) 100 MCG PO (05:42)
[2022-03-20] MEDS: Ascorbic Acid 500 MG Tablet PO (05:43)
[2022-03-20 06:45] LABS: Bedside Glucose 143 mg/dL (74-106)
[2022-03-20] MEDS: metFORMIN HCl 850 MG Tablet PO ×2 (07:58→17:19)
[2022-03-20] MEDS: Carvedilol 12.5 MG Tablet PO ×2 (07:58→17:19)
[2022-03-20] MEDS: Acetaminophen 500 MG Tablet 1000 MG PO ×2 (08:00→17:23)
[2022-03-20 14:00] VITALS: BP 130/58; PULSE 58; RESP 18; TEMP 36.1; O2SAT 96
[2022-03-20 14:25] VITALS: PULSE 60
[2022-03-20 17:11] LABS: Bedside Glucose 153 mg/dL (74-106)
[2022-03-20] MEDS: Menthol/Lanolin/Calamine/Znox 113 GM Tube 1 APPLIC TOPICAL (17:19)
[2022-03-20] MEDS: Nystatin Powder 15gm Bottle 1 APPLIC TOPICAL (17:20)
[2022-03-20 17:25] VITALS: BP 148/68; PULSE 60
[2022-03-20 20:33] VITALS: BP 161/73; PULSE 64
[2022-03-20] MEDS: Atorvastatin Calcium 40 MG Tablet PO (20:34)
[2022-03-20] MEDS: Aspirin 81 MG TAB.CHEW PO (20:35)
[2022-03-20] MEDS: Montelukast 10 MG Tablet PO (20:35)
[2022-03-20] MEDS: Pramipexole Di-HCl 0.5 MG Tablet PO (20:40)
[2022-03-20 23:05] VITALS: PULSE 64; RESP 18; O2SAT 97
[2022-03-21] VITALS (8 sets, daily range): BP systolic 117–180; BP diastolic 63–75; PULSE 60–70; RESP 18–20; TEMP 36; O2SAT 95–96
--- NOTE | 2022-03-21 01:22 | NURSING ---
Patient resting comfortably, eyes closed. No adverse effects from fall 03/18/22 noted. Will continue to monitor.
[2022-03-21] MEDS: Loratadine 10 MG Tablet PO (05:46)
[2022-03-21] MEDS: Senna/Docusate Sodium 1 Tablet PO ×2 (05:46→17:14)
[2022-03-21] MEDS: Pantoprazole Sodium 40 MG Tablet PO (05:46)
[2022-03-21] MEDS: Ketoconazole Cream 1 APPLIC TOPICAL ×2 (05:46→17:11)
[2022-03-21] MEDS: NIFEdipine 90 MG Tablet PO (05:46)
[2022-03-21] MEDS: Ascorbic Acid 500 MG Tablet PO (05:46)
[2022-03-21] MEDS: Fluticasone/Salmeterol 232-14 Inhaler 1 PUFF INHALATION ×2 (05:46→17:12)
[2022-03-21] MEDS: Nystatin Powder 15gm Bottle 1 APPLIC TOPICAL ×2 (05:46→17:15)
[2022-03-21] MEDS: Acetaminophen 500 MG Tablet 1000 MG PO ×2 (05:46→21:44)
[2022-03-21] MEDS: hydrALAZINE 50 MG Tablet PO ×3 (05:46→13:27)
[2022-03-21] MEDS: Cholecalciferol (VIT D3) 25 MCG TABLET (1,000 UNITS) 100 MCG PO (05:46)
[2022-03-21] MEDS: hydroCHLOROthiazide 25 MG Tablet PO (05:46)
[2022-03-21] MEDS: Isosorbide Mononitrate 30 MG Tablet PO (05:46)
[2022-03-21] MEDS: Menthol/Lanolin/Calamine/Znox 113 GM Tube 1 APPLIC TOPICAL ×2 (05:46→17:17)
[2022-03-21 06:31] LABS: Bedside Glucose 135 mg/dL (74-106)
[2022-03-21] MEDS: metFORMIN HCl 850 MG Tablet PO ×2 (08:05→17:14)
[2022-03-21] MEDS: Carvedilol 12.5 MG Tablet PO ×2 (08:05→17:14)
[2022-03-21 16:11] LABS: Bedside Glucose 152 mg/dL (74-106)
[2022-03-21] MEDS: Pramipexole Di-HCl 0.5 MG Tablet PO (21:39)
[2022-03-21] MEDS: Aspirin 81 MG TAB.CHEW PO (21:40)
[2022-03-21] MEDS: Montelukast 10 MG Tablet PO (21:41)
[2022-03-22] MEDS: Fluticasone/Salmeterol 232-14 Inhaler 1 PUFF INHALATION (05:57)
[2022-03-22 05:58] VITALS: BP 158/78; PULSE 60
[2022-03-22] MEDS: hydrALAZINE 50 MG Tablet PO (05:58)
[2022-03-22] MEDS: hydroCHLOROthiazide 25 MG Tablet PO (05:59)
[2022-03-22] MEDS: Loratadine 10 MG Tablet PO (05:59)
[2022-03-22] MEDS: Isosorbide Mononitrate 30 MG Tablet PO (05:59)
[2022-03-22] MEDS: Pantoprazole Sodium 40 MG Tablet PO (06:00)
[2022-03-22] MEDS: Senna/Docusate Sodium 1 Tablet PO (06:00)
[2022-03-22] MEDS: NIFEdipine 90 MG Tablet PO (06:00)
[2022-03-22] MEDS: Cholecalciferol (VIT D3) 25 MCG TABLET (1,000 UNITS) 100 MCG PO (06:00)
[2022-03-22] MEDS: Ascorbic Acid 500 MG Tablet PO (06:01)
[2022-03-22] MEDS: Acetaminophen 500 MG Tablet 1000 MG PO (06:06)
[2022-03-22] MEDS: Menthol/Lanolin/Calamine/Znox 113 GM Tube 1 APPLIC TOPICAL (06:09)
[2022-03-22] MEDS: Nystatin Powder 15gm Bottle 1 APPLIC TOPICAL (06:10)
[2022-03-22] MEDS: Ketoconazole Cream 1 APPLIC TOPICAL (06:11)
[2022-03-22 06:20] LABS: Bedside Glucose 137 mg/dL (74-106)
[2022-03-22 06:49] VITALS: PULSE 60; RESP 18; O2SAT 94
[2022-03-22 06:55] VITALS: BP 158/78; PULSE 60; RESP 18; TEMP 36.3; O2SAT 94
[2022-03-22] MEDS: metFORMIN HCl 850 MG Tablet PO (07:45)
[2022-03-22] MEDS: Carvedilol 12.5 MG Tablet PO (07:45)
[2022-03-22 07:50] VITALS: BP 128/60; PULSE 66
--- NOTE | 2022-03-22 10:00 | CASEMGMT ---
Social Work BIMS and PHQ-9 completed for MDS assessment. Teresa Grande, BARREL DRILLER IVORY POLISHER
--- NOTE | 2022-03-22 12:38 | MDS.RN ---
Information for the mds was obtained from review of the clinical record, interview of resident, staff, and direct observation of resident's care. MDS completed, not finalized d/t no PDPM codes generated with completion of assessment. [facility] I.T dept and TCUunit ekg manager aware
== END 2022-03-22 10:15 | disposition home or self-care (01) | DRG 949 ==
PROVIDERS: Admitting Provider Family Medicine Geriatric Medicine; PCP Internal Medicine; Visit Provider Family Medicine Geriatric Medicine
DX: Z48.816 Encounter for surgical aftercare following surgery on the genitourinary system (principal); N18.4 Chronic kidney disease, stage 4 (severe); E11.22 Type 2 diabetes mellitus with diabetic chronic kidney disease; E11.51 Type 2 diabetes mellitus with diabetic peripheral angiopathy without gangrene; I71.4 Abdominal aortic aneurysm, without rupture; J44.9 Chronic obstructive pulmonary disease, unspecified; I12.9 Hypertensive chronic kidney disease with stage 1 through stage 4 chronic kidney disease, or unspecified chronic kidney disease; N40.1 Benign prostatic hyperplasia with lower urinary tract symptoms; E78.5 Hyperlipidemia, unspecified; K21.9 Gastro-esophageal reflux disease without esophagitis; I25.10 Atherosclerotic heart disease of native coronary artery without angina pectoris; G47.33 Obstructive sleep apnea (adult) (pediatric); M19.90 Unspecified osteoarthritis, unspecified site; I25.2 Old myocardial infarction; R33.8 Other retention of urine; Z79.84 Long term (current) use of oral hypoglycemic drugs; Z79.82 Long term (current) use of aspirin; Z79.51 Long term (current) use of inhaled steroids; Z87.891 Personal history of nicotine dependence; Z79.899 Other long term (current) drug therapy; Z23 Encounter for immunization
CPT/HCPCS: 0004A; 36415; 80048; 81001; 82962; 85025; 87086; 87426; 87811; 91300; 94640; 97110; 97116; 97162; 97165; 97530; 97535; 97802

== ENCOUNTER 2022-03-29 03:35 | Emergency (ER) | payer MEDICARE, SELFPAY ==
[2022-03-29 03:36] VITALS: BP 203/68; PULSE 74; RESP 15; TEMP 36.2; O2SAT 98; BMI 28.3
--- NOTE | 2022-03-29 03:46 | RAD_ITS ---
STUDY: X-RAY - ABDOMEN/PELVIS REASON FOR EXAM: Male, 86 years old. Constipation TECHNIQUE: Two AP supine views of the abdomen and pelvis. COMPARISON: None. FINDINGS: Normal visualized lung bases. There is an abundance of fecal material throughout the colon. There is no demonstrated free abdominal air. The visualized liver, spleen and kidneys are grossly normal in size and morphology. Normal soft tissue structures. Normal visualized osseous structures. RAD/Abdomen Single View (Portable) IMPRESSION: Abundant constipation. No evidence of bowel obstruction. Electronically Signed: Rolly Evangelista DO at 4:05 EDT ,
--- NOTE | 2022-03-29 03:50 | ED.VIS.GI ---
HPI HPI - GI History of Present Illness Chief Complaint: Constipation Informant: spouse/S.O. 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 He only gets a small amount of stool out once a day. About every month or so he will get a large bowel movement and then the process starts again. Sometimes he has to go see a doctor emergency department. He states he has not gotten more than a few inches of stool out in a day for a month or so. He states he feels full in his abdomen but he is not having pain. He has no nausea and vomiting and has been eating. He did take a Dulcolax which his doctor said might cause nausea. He took it and he felt nauseated right afterwards but that is gone now. He has had no fevers or chills. He has had no syncope or presyncope. He does have a known AAA. He had this repaired in 1998. He has not had blood in his stool. He has not had black stools. The only thing he has tried so far is a single Dulcolax. He denies changes in medicines. He denies being on pain meds for anything. No other complaints. [facility] Medical History Abdominal aortic aneurysm (AAA) Acute cystitis with hematuria Ambulates with cane Aortic aneurysm Arthritis Asthma Atherosclerotic heart disease of [place] coronary artery without angina pectoris Back pain BiPAP (biphasic positive airway pressure) dependence Cancer Cardiology follow-up encounter Carotid bruit Chest pain Chronic cough CKD (chronic kidney disease) stage 4, GFR 15-29 ml/min COPD (chronic obstructive pulmonary disease) Daytime hypersomnia DDD (degenerative disc disease), lumbar Diabetes DM2 (diabetes mellitus, type 2) Dyslipidemia Easy bruising Essential (primary) hypertension Former smoker Gastric reflux High cholesterol History of echocardiogram History of edema History of heart attack History of hiatal hernia History of irregular heartbeat History of pain when walking History of renal disease History of steroid therapy History of stress test HLD (hyperlipidemia) Hoarseness Hypertension Injury of back Kidney stone Leg cramps MARIXA (obstructive sleep apnea) Overweight Patellar bursitis of right knee Peripheral vascular disease of extremity with claudication Pre-syncope PVD (peripheral vascular disease) Rectus sheath hematoma Recurrent urinary tract infection Restless legs Restless legs syndrome Seasonal allergies Shortness of breath on exertion Sleep apnea Somatic dysfunction of pelvic region Walker as ambulation aid Wears dentures Wears glasses Wears hearing aid Home Medications aspirin 81 mg chewable tablet 81 mg PO QHS heart health 03/28/14 [History Last Taken 02/27/22] isosorbide mononitrate 30 mg tablet,extended release 24 hr 30 mg PO DAILY heart 03/28/14 [History Last Taken 03/09/22] pantoprazole 40 mg tablet,delayed release 40 mg PO DAILY reflux 03/28/14 [History Last Taken 03/09/22] ammonium lactate 12 % lotion 1 applic topical QD-BID PRN dry skin 02/06/18 [History Last Taken Unknown] triamcinolone acetonide 55 mcg nasal spray aerosol (Nasacort) 2 spray intranasal DAILY allergies 09/04/18 [History Last Taken 03/09/22] handicap placcard #1 ea 09/28/19 [Rx Last Taken Unknown] ascorbate calcium (vitamin C) 500 mg tablet 500 mg PO DAILY Bone strength 05/03/20 [History Last Taken 03/09/22] coenzyme Q10 100 mg capsule (Co Q-10) 100 mg PO DAILY 05/03/20 [History Last Taken Unknown] cholecalciferol (vitamin D3) 100 mcg (4,000 unit) tablet 100 mcg PO DAILY 11/03/20 [History Last Taken Unknown] hydralazine 25 mg tablet 25 mg PO TID B/P 11/03/20 [History Last Taken 03/09/22] spacer #1 ea 01/12/21 [Rx Last Taken Unknown] nitroglycerin 0.4 mg sublingual tablet (Nitrostat) 0.4 mg sublingual Q5-15M PRN chest pain #25 tabs 11/01/21 [Rx Last Taken Unknown] albuterol sulfate 90 mcg/actuation aerosol inhaler (Ventolin HFA) 2 inh inhalation Q4H PRN shortness of breath or wheezing #18 grams 11/27/21 [Rx Last Taken Unknown] metformin 850 mg tablet 850 mg PO BID Blood Glucose 01/25/22 [History Last Taken 03/09/22] atorvastatin 40 mg tablet 40 mg PO QODAY cholesterol #45 tabs 02/20/22 [Rx Last Taken 03/08/22] ipratropium 0.5 mg-albuterol 3 mg (2.5 mg base)/3 mL nebulization soln 3 ml inhalation 4X/DAY PRN PRN shortness of breath or wheezing #90 mL 02/21/22 [Rx Last Taken 03/09/22] ipratropium bromide 42 mcg (0.06 %) nasal spray 2 spray intranasal TID-QID PRN allergy symptoms #15 mL 02/21/22 [Rx Last Taken Unknown] budesonide-formoterol HFA 160 mcg-4.5 mcg/actuation aerosol inhaler (Symbicort) 2 puff inhalation BID Respitory 03/09/22 [History Last Taken 03/06/22] carvedilol 12.5 mg tablet 12.5 mg PO BID B/P 03/09/22 [History Last Taken 03/09/22] hydrochlorothiazide 25 mg tablet 25 mg PO DAILY Diuretic 03/09/22 [History Last Taken 03/09/22] loratadine 10 mg capsule 10 mg PO QDAY Allergies 03/09/22 [History Last Taken 03/09/22] montelukast 10 mg tablet 10 mg PO QHS Respiratory 03/09/22 [History Last Taken 03/08/22] nifedipine 90 mg tablet,extended release (Adalat CC) 90 mg PO DAILY B/P 03/09/22 [History Last Taken 03/09/22] acetaminophen 500 mg tablet 1,000 mg PO Q6H PRN PRN Pain Score 1-10 #0 tabs 03/19/22 [Rx Last Taken Unknown] Allergy/AdvReac Type Severity Reaction Status Date / Time cilostazol [From Pletal] Allergy Unknown Verified 03/29/22 03:42 felodipine Allergy Hives Verified 03/29/22 03:42 levofloxacin Allergy Hives Verified 03/29/22 03:42 Sulfa (Sulfonamide Allergy Unknown Verified 03/29/22 03:42 Antibiotics) Family History Father Diabetes Cancer Prostate cancer Surgical History H/O aortic aneurysm repair (11/1998) History of coronary artery stent placement (02/17/08) History of endarterectomy (07/2018) History of hernia repair History of left heart catheterization (03/2014) History of transurethral resection of prostate History of vascular surgery (08/2018) Social History household members: spouse Smoking Status: Former smoker how long ago did patient quit smokin years ago alcohol intake: current alcohol intake frequency: holidays/special occasions only details: hx of alcohol abuse substance use type: does not use caffeine: No what type of physical activity do you participate in: other details: Nustep frequency: 5-6 times per week duration: 15-30 minutes/day seatbelt use: always do you feel safe at home: Yes ROS ROS ED Constitutional Constitutional ED: Denies chills or fever(s) ENT ENT ED: Denies sore throat Cardiovascular Cardiovascular: Denies chest pain or palpitations Respiratory/Chest Respiratory/Chest: Denies cough or dyspnea Gastrointestinal Gastrointestinal: Reports constipation and nausea; Denies abdominal pain, diarrhea, melena or vomiting Genitourinary Genitourinary ED: Denies dysuria or hematuria Musculoskeletal Musculoskeletal: Denies back pain Integumentary Denies rash Neurologic Neurologic: Denies paresthesias or weakness Hematologic/Lymphatic Hematologic/Lymphatic: Denies easy bleeding or easy bruising Allergic/Immunologic Allergic/Immunologic ED: Denies urticaria EXAM Physical Exam Const Vital Signs: 03/29/22 03:36 Temperature 97.2 F L Temperature Source Oral Pulse Rate 74 Respiratory Rate 15 Blood Pressure 203/68 H Blood Pressure Mean 113 Pulse Ox 98 Oxygen Delivery Method Room Air Positive well nourished and well developed Constitutional Narrative: Patient is lying comfortably in bed. He carries on normal conversation. He is humorous. He is in no acute distress. General Appearance ED: well developed and NAD; Negative for pallor HEENT Reports moist mucous membranes Eyes EOMs intact bilaterally General Eye ED: Negative for scleral icterus Neck no JVD Resp normal respiratory effort and clear to auscultation bilaterally Cardio regular rate and regular rhythm GI non-tender GI Narrative: Abdomen is soft with normal bowel sounds. He does have some obesity. It is possible he has some distention but he still has a very soft abdomen. I do not feel a mass. There is no tenderness on exam. Back/Spine no CVA tenderness Extremity full ROM Extremity Narrative: Normal peripheral color. No notable edema. No abnormal pulses. Neuro Sensorium / Orientation: alert Psych mental status grossly normal Skin General Skin Exam: Negative for jaundice or pallor MDM MDM MDM Narrative Medical decision making narrative: Patient's abdominal films was looked at by me and read by radiology. They read it as Abundant constipation. No evidence of bowel obstruction. This is consistent with his history. Although he has a aneurysm it was last at 3.9 cm earlier this year. His symptoms or not consistent with ruptured aneurysm. Patient was given an enema here. He had a large amount of stool come out but I am sure they are still more in there as the x-ray shows stool throughout the colon. We will get the patient GoLytely. He has used what sounds like the same medicine before for colonoscopies. It has been effective. We discussed reasons to return including fevers, pain, vomiting or other concerns. We also discussed diet. His states that he eats cheese every night. He also does not drink much fluids. He also does not walk around or be active. We explained that all of these things can be changed to help him in the long-term. Radiography Diagnostic Testing: Clinical Impression(s) from Imaging Studies [facility] X-Ray 03/29/22 03:46 IMPRESSION: Abundant constipation. No evidence of bowel obstruction. Electronically Signed: Rolly Evangelista DO at 4:05 EDT , Discharge Plan Triage Chief Complaint: Constipation ED Provider: Olvin Covington Dx/Rx/DC Orders Clinical Impression: Constipation Instructions: ED Constipation (Adult) Prescriptions: No Action ammonium lactate 12 % lotion 1 applic TOPICAL QD-BID PRN (Reason: dry skin ) triamcinolone acetonide [Nasacort] 55 mcg aerosol,spray 2 spray INTRANASAL DAILY (DME) handicap placcard Qty: 1 0RF Rx Instructions: Lifetime: debility coenzyme Q10 [Co Q-10] 100 mg capsule 100 mg PO DAILY ascorbate calcium (vitamin C) 500 mg tablet 500 mg PO DAILY hydralazine 25 mg tablet 25 mg PO TID cholecalciferol (vitamin D3) 100 mcg (4,000 unit) tablet 100 mcg (4,000 unit) tablet 100 mcg PO DAILY (DME) spacer See Rx Instructions .ROUTE .MEDSUPPLY Qty: 1 0RF Rx Instructions: As directed nitroglycerin [Nitrostat] 0.4 mg tablet, sublingual 0.4 mg SUBLINGUAL Q5-15M PRN (Reason: chest pain) Qty: 25 2RF ipratropium-albuterol 0.5 mg-3 mg(2.5 mg base)/3 mL solution for nebulization 3 ml inhalation 4X/DAY PRN PRN (Reason: shortness of breath or wheezing) Qty: 90 6RF ipratropium bromide 42 mcg (0.06 %) spray,non-aerosol 2 spray INTRANASAL TID-QID PRN (Reason: allergy symptoms) Qty: 15 6RF Rx Instructions: nasal drip - administer into each nostril; wait 30 seconds between sprays metformin 850 mg tablet 850 mg PO BID pantoprazole 40 MG tablet 40 mg PO DAILY Label Comments: acid reflux aspirin 81 MG tablet,chewable 81 mg PO QHS Label Comments: antiplatelet isosorbide mononitrate 30 MG tablet 30 mg PO DAILY Label Comments: heart carvedilol 12.5 mg tablet 12.5 mg PO BID nifedipine [Adalat CC] 90 mg tablet extended release 90 mg PO DAILY Rx Instructions: heart montelukast 10 mg tablet 10 mg PO QHS hydrochlorothiazide 25 mg tablet 25 mg PO DAILY budesonide-formoterol [Symbicort] 160-4.5 mcg/actuation HFA aerosol inhaler 2 puff INHALATION BID Rx Instructions: administer with spacer, rinse mouth after each use loratadine 10 mg capsule 10 mg PO QDAY Rx Instructions: allergies acetaminophen 500 mg Tablet 1,000 mg PO Q6H PRN PRN (Reason: Pain Score 1-10) Qty: 0 0RF albuterol sulfate [Ventolin HFA] 90 mcg/actuation HFA aerosol inhaler 2 inh INHALATION Q4H PRN (Reason: shortness of breath or wheezing) Qty: 18 6RF atorvastatin 40 mg tablet 40 mg PO QODAY Qty: 45 3RF Primary Care Provider: Emeka Horn Referrals: Emeka Horn MD [Primary Care Provider] - 3-5 Days if not improving Disposition Disposition: Home, Self Care
[2022-03-29] MEDS: Electrolyte Solution/Peg's 4000 ML 2000 ML PO (05:46)
[2022-03-29 05:47] VITALS: BP 168/87; PULSE 72; RESP 16; O2SAT 95
== END 2022-03-29 06:05 | disposition home or self-care (01) ==
PROVIDERS: Emergency Provider Emergency Medicine; PCP Internal Medicine; Visit Provider Emergency Medicine
DX: K59.00 Constipation, unspecified (principal); J44.9 Chronic obstructive pulmonary disease, unspecified; E11.22 Type 2 diabetes mellitus with diabetic chronic kidney disease; N18.4 Chronic kidney disease, stage 4 (severe); I12.9 Hypertensive chronic kidney disease with stage 1 through stage 4 chronic kidney disease, or unspecified chronic kidney disease; E78.00 Pure hypercholesterolemia, unspecified; I25.10 Atherosclerotic heart disease of native coronary artery without angina pectoris; I25.2 Old myocardial infarction; G47.33 Obstructive sleep apnea (adult) (pediatric); Z95.5 Presence of coronary angioplasty implant and graft; Z79.82 Long term (current) use of aspirin; Z79.899 Other long term (current) drug therapy; Z87.891 Personal history of nicotine dependence; Z79.84 Long term (current) use of oral hypoglycemic drugs
CPT/HCPCS: 74018; 99284

== ENCOUNTER → 2022-04-02 | Outpatient (CLI) | payer MEDICARE, SELFPAY | END | disposition home or self-care (01) | LOC: LABSPEC 16:30 | PROVIDERS: PCP Internal Medicine; Visit Provider Urology | DX: R31.9 Hematuria, unspecified (principal) | CPT/HCPCS: 87077; 87086; 87088; 87186 ==

== ENCOUNTER 2022-04-22 07:50 | Emergency (ER) | payer MEDICARE, SELFPAY ==
[2022-04-22 07:51] VITALS: BP 211/91; PULSE 86; RESP 14; TEMP 36.5; O2SAT 95; BMI 27.9
--- NOTE | 2022-04-22 08:31 | EDS_ITS ---
HPI History of Present Illness Chief Complaint: Complaint Narrative Narrative: 86-year-old male presenting with inability to urinate for the last day. Patient states he has some suprapubic pressure. Patient states that he has a history of TURP about a month ago from Dr. Matos. Patient states that he is not having any urinary symptoms of dysuria or hematuria. No fever or chills. No flank pain. Patient does note that his right testicle is swollen. This started yesterday. He denies any trauma. He states its mildly tender when he touches it. Patient does relate that he has had a couple of issues with urination recently and [facility]. He has been on at least 3 different antibiotics over the last month. 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 Back pain BiPAP (biphasic positive airway pressure) dependence Cancer Cardiology follow-up encounter Carotid bruit Chest pain Chronic cough CKD (chronic kidney disease) stage 4, GFR 15-29 ml/min COPD (chronic obstructive pulmonary disease) Daytime hypersomnia DDD (degenerative disc disease), lumbar Diabetes DM2 (diabetes mellitus, type 2) Dyslipidemia Easy bruising Essential (primary) hypertension Former smoker Gastric reflux High cholesterol History of echocardiogram History of edema History of heart attack History of hiatal hernia History of irregular heartbeat History of pain when walking History of renal disease History of steroid therapy History of stress test HLD (hyperlipidemia) Hoarseness Hypertension Injury of back Kidney stone Leg cramps MARIXA (obstructive sleep apnea) Overweight Patellar bursitis of right knee Peripheral vascular disease of extremity with claudication Pre-syncope PVD (peripheral vascular disease) Rectus sheath hematoma Recurrent urinary tract infection Restless legs Restless legs syndrome Seasonal allergies Shortness of breath on exertion Sleep apnea Somatic dysfunction of pelvic region Walker as ambulation aid Wears dentures Wears glasses Wears hearing aid Home Medications aspirin 81 mg chewable tablet 81 mg PO QHS heart health 03/28/14 [History Last Taken 02/27/22] isosorbide mononitrate 30 mg tablet,extended release 24 hr 30 mg PO DAILY heart 03/28/14 [History Last Taken 03/09/22] pantoprazole 40 mg tablet,delayed release 40 mg PO DAILY reflux 03/28/14 [History Last Taken 03/09/22] ammonium lactate 12 % lotion 1 applic topical QD-BID PRN dry skin 02/06/18 [History Last Taken Unknown] triamcinolone acetonide 55 mcg nasal spray aerosol (Nasacort) 2 spray intranasal DAILY allergies 09/04/18 [History Last Taken 03/09/22] handicap placcard #1 ea 09/28/19 [Rx Last Taken Unknown] ascorbate calcium (vitamin C) 500 mg tablet 500 mg PO DAILY Bone strength 05/03/20 [History Last Taken 03/09/22] coenzyme Q10 100 mg capsule (Co Q-10) 100 mg PO DAILY 05/03/20 [History Last Taken Unknown] cholecalciferol (vitamin D3) 100 mcg (4,000 unit) tablet 100 mcg PO DAILY 11/03/20 [History Last Taken Unknown] hydralazine 25 mg tablet 50 mg PO BID B/P 11/03/20 [History Last Taken 03/09/22] spacer #1 ea 01/12/21 [Rx Last Taken Unknown] nitroglycerin 0.4 mg sublingual tablet (Nitrostat) 0.4 mg sublingual Q5-15M PRN chest pain #25 tabs 11/01/21 [Rx Last Taken Unknown] albuterol sulfate 90 mcg/actuation aerosol inhaler (Ventolin HFA) 2 inh inhalation Q4H PRN shortness of breath or wheezing #18 grams 11/27/21 [Rx Last Taken Unknown] metformin 850 mg tablet 500 mg PO BID Blood Glucose 01/25/22 [History Last Taken 03/09/22] atorvastatin 40 mg tablet 40 mg PO QODAY cholesterol #45 tabs 02/20/22 [Rx Last Taken 03/08/22] ipratropium 0.5 mg-albuterol 3 mg (2.5 mg base)/3 mL nebulization soln 3 ml inhalation 4X/DAY PRN PRN shortness of breath or wheezing #90 mL 02/21/22 [Rx Last Taken 03/09/22] ipratropium bromide 42 mcg (0.06 %) nasal spray 2 spray intranasal TID-QID PRN allergy symptoms #15 mL 02/21/22 [Rx Last Taken Unknown] budesonide-formoterol HFA 160 mcg-4.5 mcg/actuation aerosol inhaler (Symbicort) 2 puff inhalation BID Respitory 03/09/22 [History Last Taken 03/06/22] carvedilol 12.5 mg tablet 12.5 mg PO BID B/P 03/09/22 [History Last Taken 03/09/22] hydrochlorothiazide 25 mg tablet 25 mg PO DAILY Diuretic 03/09/22 [History Last Taken 03/09/22] loratadine 10 mg capsule 10 mg PO QDAY Allergies 03/09/22 [History Last Taken 03/09/22] montelukast 10 mg tablet 10 mg PO QHS Respiratory 03/09/22 [History Last Taken 03/08/22] nifedipine 90 mg tablet,extended release (Adalat CC) 90 mg PO DAILY B/P 03/09/22 [History Last Taken 03/09/22] acetaminophen 500 mg tablet 1,000 mg PO Q6H PRN PRN Pain Score 1-10 #0 tabs 03/19/22 [Rx Last Taken Unknown] cephalexin 500 mg capsule 500 mg PO Q12 #14 caps 04/22/22 [Rx Last Taken Unknown] ropinirole 0.5 mg tablet 0.5 mg PO TID 04/22/22 [History Last Taken Unknown] tamsulosin 0.4 mg capsule (Flomax) 0.4 mg PO DAILY #30 caps 04/22/22 [Rx Last Taken Unknown] Allergy/AdvReac Type Severity Reaction Status Date / Time cilostazol [From Pletal] Allergy Unknown Verified 04/22/22 07:54 felodipine Allergy Hives Verified 04/22/22 07:54 levofloxacin Allergy Hives Verified 04/22/22 07:54 Sulfa (Sulfonamide Allergy Unknown Verified 04/22/22 07:54 Antibiotics) Family History Father Diabetes Cancer Prostate cancer Surgical History H/O aortic aneurysm repair (11/1998) History of coronary artery stent placement (02/17/08) History of endarterectomy (07/2018) History of hernia repair History of left heart catheterization (03/2014) History of transurethral resection of prostate History of vascular surgery (08/2018) Social History household members: spouse Smoking Status: Former smoker how long ago did patient quit smokin years ago alcohol intake: current alcohol intake frequency: holidays/special occasions only details: hx of alcohol abuse substance use type: does not use caffeine: No what type of physical activity do you participate in: other details: Nustep frequency: 5-6 times per week duration: 15-30 minutes/day seatbelt use: always do you feel safe at home: Yes ROS ROS ED Constitutional Constitutional ED: Denies chills or fever(s) Eyes Eyes: Denies change in vision ENT ENT ED: Denies rhinorrhea or sore throat Cardiovascular Cardiovascular: Denies chest pain or palpitations Respiratory/Chest Respiratory/Chest: Denies cough or dyspnea Gastrointestinal Gastrointestinal: Reports abdominal pain; Denies constipation, diarrhea or melena Genitourinary Genitourinary ED: Reports testicular swelling and other Details: Inability to urinate Musculoskeletal Musculoskeletal: Denies arthralgias or back pain Integumentary Denies abscess Neurologic Neurologic: Denies headache(s) or paresthesias Psychiatric Psychiatric: Denies anxiety or depression EXAM Physical Exam Const Vital Signs: 04/22/22 07:51 04/22/22 09:44 04/22/22 11:56 Temperature 97.7 F L Temperature Source Temporal Pulse Rate 86 72 78 Respiratory Rate 14 18 16 Blood Pressure 211/91 H 202/72 H 200/91 H Blood Pressure Mean 131 115 127 Pulse Ox 95 98 96 Oxygen Delivery Method Room Air Room Air Room Air 04/22/22 14:40 Temperature Temperature Source Pulse Rate 68 Respiratory Rate 16 Blood Pressure 197/85 H Blood Pressure Mean Pulse Ox 98 Oxygen Delivery Method Positive well nourished General Appearance ED: NAD; Negative for pallor HEENT Reports moist mucous membranes normocephalic and atraumatic Eyes PERRL and EOMs intact bilaterally Resp normal respiratory effort and clear to auscultation bilaterally Cardio regular rate and regular rhythm GI GI Narrative: Suprapubic tenderness is mild Palpation: Negative for guarding or hepatomegaly no CVA tenderness Penis: normal penis and circumcised Scrotum: cremasteric reflex present, tenderness and scrotal swelling right Testes: testicular swelling right; Negative for blue dot sign or high-riding testicle Back/Spine no CVA tenderness Neuro oriented x3 and CN's II-XII intact bilaterally Sensorium / Orientation: alert Psych mental status grossly normal Skin General Skin Exam: Negative for jaundice or pallor MDM MDM MDM Narrative Medical decision making narrative: Patient presenting with difficulty urinating. He states initially that he cannot urinate and his bladder scan shows over 1000 cc of urine. Initial attempt to put a Edwards catheter in failed. After this he was able to spontaneously void and has so with several attempts to place a Edwards catheter however he quickly stopped urinating. We did obtain a urinalysis sample with 500 leukocyte esterase and greater than 100 white blood cells. There is no bacteria present. This was sent for culture. Patient was given a dose of Rocephin IV. CBC shows a small leukocytosis at 12.7. Hemoglobin stable at 10.5. Creatinine is elevated at 1.5 which is elevated over his most recent lab work however he has had elevations like this in the past. He was given IV fluids. Several attempts were made with daily catheter of various sizes even the smallest catheter would not pass through his wrist appears to be some kind of stricture. Patient last had TURP performed by Dr. Matos about a month ago and states he has had intermittent episodes of this urinary obstruction and difficulty urinating since then. CT of the abdomen pelvis was performed and does not show any hydronephrosis or bladder wall thickening. Because of the patient's testicular pain I did order a testicular ultrasound. There is no testicular torsion. There are bilateral epididymal cysts. There is increased vascularity to the right testicle which the radiologist interprets as epididymal orchitis. I spoke with Dr. Matos and did discuss the case with him. He states that he can see him in 2 days if he is currently voiding. I did tell him that the patient is allergic to Levaquin and therefore likely ciprofloxacin. He recommended putting him on Keflex and follow-up with him in 2 days. Patient has voided several times and had a couple 100 cc with each void. He is not in any pain. Patient was offered transfer to another facility if he feels that he needs a Edwards catheter placed. He did not feel he wanted to do this since he is currently voiding. I counseled him to drink plenty of fluids. It was placed on Flomax. He will be discharged home with Keflex. Impression: 1. Urinary retention resolved 2. UTI 3. Right testicular pain Lab Data Attestation: I reviewed the patient's lab results. Labs: Laboratory Results - last 24 hr 04/22/22 04/22/22 04/22/22 08:30 08:30 08:35 WBC 12.7 H RBC 3.37 L Hgb 10.5 L Hct 31.4 L MCV 93.2 MCH 31.2 MCHC 33.4 RDW Std Deviation 44.7 H RDW Coeff of Justin 14.3 Plt Count 386 MPV 9.6 Immature Gran % (Auto) 0.600 Neut % (Auto) 66.2 Lymph % (Auto) 22.2 [place] % (Auto) 9.2 Eos % (Auto) 1.4 Baso % (Auto) 0.4 Absolute Neuts (auto) 8.4 H Absolute Lymphs (auto) 2.83 Nucleated RBC % 0 Sodium 138 Potassium 3.8 Chloride 104 Carbon Dioxide 25.0 Anion Gap 9 BUN 24 H Creatinine 1.52 H Estim Creat Clear Calc 37.35 Est GFR (MDRD) Af Amer 56 L Est GFR (MDRD) Non-Af 47 L BUN/Creatinine Ratio 15.8 Glucose 182 H Calcium 9.6 Urine Color Yellow Urine Clarity Cloudy Urine pH 6.0 Ur Specific [place] 1.010 Urine Protein 500 H Urine Glucose (UA) Normal Urine Ketones Negative Urine Occult Blood 25 H Urine Nitrite Negative Urine Bilirubin Negative Urine Urobilinogen Normal Ur Leukocyte Esterase 500 H Urine RBC 0 SEEN Urine WBC >100 SEEN Ur Squamous Epith Cells 0 SEEN Urine Bacteria 0 SEEN Urine Mucus 0 SEEN Radiography Diagnostic Testing: Clinical Impression(s) from Imaging Studies Testicular Ultrasound 04/22/22 09:02 IMPRESSION: Heterogeneous testicles without intratesticular mass, or torsion Increased vascularity to the right testicle and right epididymis suggesting epididymal orchitis. Bilateral epididymal cysts Electronically Signed: Cristopher Quezada MD at 11:21 EDT , Abdomen/Pelvis CT 04/22/22 09:03 IMPRESSION: 1. No bladder wall thickening. No hydronephrosis. 2. Stable chronic changes, as above. Electronically Signed: Alexsander Barron MD ([place]) at 10:10 EDT , Discharge Plan Triage Chief Complaint: Complaint ED Provider: Adelfo Obrien Dx/Rx/DC Orders Instructions: ED Epididymitis, ED Orchitis, ED STI Male Treated, ED Urinary Retention, Male Prescriptions: New cephalexin 500 mg capsule 500 mg PO Q12 Qty: 14 0RF tamsulosin [Flomax] 0.4 mg capsule 0.4 mg PO DAILY Qty: 30 0RF No Action ammonium lactate 12 % lotion 1 applic TOPICAL QD-BID PRN (Reason: dry skin ) triamcinolone acetonide [Nasacort] 55 mcg aerosol,spray 2 spray INTRANASAL DAILY (DME) handicap placcard Qty: 1 0RF Rx Instructions: Lifetime: debility coenzyme Q10 [Co Q-10] 100 mg capsule 100 mg PO DAILY ascorbate calcium (vitamin C) 500 mg tablet 500 mg PO DAILY hydralazine 25 mg tablet 50 mg PO BID cholecalciferol (vitamin D3) 100 mcg (4,000 unit) tablet 100 mcg (4,000 unit) tablet 100 mcg PO DAILY (DME) spacer See Rx Instructions .ROUTE .MEDSUPPLY Qty: 1 0RF Rx Instructions: As directed nitroglycerin [Nitrostat] 0.4 mg tablet, sublingual 0.4 mg SUBLINGUAL Q5-15M PRN (Reason: chest pain) Qty: 25 2RF ipratropium-albuterol 0.5 mg-3 mg(2.5 mg base)/3 mL solution for nebulization 3 ml inhalation 4X/DAY PRN PRN (Reason: shortness of breath or wheezing) Qty: 90 6RF ipratropium bromide 42 mcg (0.06 %) spray,non-aerosol 2 spray INTRANASAL TID-QID PRN (Reason: allergy symptoms) Qty: 15 6RF Rx Instructions: nasal drip - administer into each nostril; wait 30 seconds between sprays metformin 850 mg tablet 500 mg PO BID pantoprazole 40 MG tablet 40 mg PO DAILY Label Comments: acid reflux aspirin 81 MG tablet,chewable 81 mg PO QHS Label Comments: antiplatelet isosorbide mononitrate 30 MG tablet 30 mg PO DAILY Label Comments: heart carvedilol 12.5 mg tablet 12.5 mg PO BID nifedipine [Adalat CC] 90 mg tablet extended release 90 mg PO DAILY Rx Instructions: heart montelukast 10 mg tablet 10 mg PO QHS hydrochlorothiazide 25 mg tablet 25 mg PO DAILY budesonide-formoterol [Symbicort] 160-4.5 mcg/actuation HFA aerosol inhaler 2 puff INHALATION BID Rx Instructions: administer with spacer, rinse mouth after each use loratadine 10 mg capsule 10 mg PO QDAY Rx Instructions: allergies acetaminophen 500 mg Tablet 1,000 mg PO Q6H PRN PRN (Reason: Pain Score 1-10) Qty: 0 0RF ropinirole 0.5 mg Tablet 0.5 mg PO TID albuterol sulfate [Ventolin HFA] 90 mcg/actuation HFA aerosol inhaler 2 inh INHALATION Q4H PRN (Reason: shortness of breath or wheezing) Qty: 18 6RF atorvastatin 40 mg tablet 40 mg PO QODAY Qty: 45 3RF Primary Care Provider: Emeka Horn Referrals: Emeka Horn MD [Primary Care Provider] - Disposition Disposition: Home, Self Care Discharge Date/Time: 04/22/22 14:55
--- NOTE | 2022-04-22 08:31 | ED.RN ---
BLADDER SCANNED FOR GREATER THAN 999ML. UNABLE TO PLACE CLAY CATHETER. URINE LEAKING AROUND CATHETER. PT TOLERATED WELL DESPITE NO SUCCESS. DR. JAIN INFORMED.
[2022-04-22 08:41] LABS: Absolute Lymphocyte Count 2.83 X10^3/uL (0.83-4.51); Absolute Neutrophil Count 8.4 X10^3/uL (2.0-7.7); Basophil# 0.05 X10^3/uL; Basophil% 0.4 % (0-1); Eosinophil# 0.18 X10^3/uL; Eosinophils% 1.4 % (0-5); Hematocrit 31.4 % (40-54); Hemoglobin 10.5 g/dL (13.0-16.5); Lymphocyte # 2.83 X10^3/ul (0.83-4.51); Lymphocyte % 22.2 % (19-41); Mean Corp Hgb Conc 33.4 g/dL (32-36); Mean Corpuscular Hgb 31.2 pg (27.0-32.0); Mean Corpuscular Volume 93.2 fL (80-94); Mean Platelet Vol. 9.6 fl (6.2-12.0); Monocyte# 1.17 X10^3/uL; Monocyte% 9.2 % (0-10); NRBC Flagged by Analyzer 0 % (0-5); Neutrophil # 8.42 X10^3/uL (2.7-7.7); Neutrophil % 66.2 % (47-70); Platelet Count 386 K/mm3 (150-450); RBC Distribution Width CV 14.3 % (11.6-14.6); RBC Distribution Width SD 44.7 fl (35.1-43.9); Red Blood Count 3.37 M/mm3 (4.6-6.2); White Blood Count 12.7 K/mm3 (4.4-11.0)
[2022-04-22 08:41] LABS: Bacteria 0 SEEN /hpf (None Seen); Mucous, Urine 0 SEEN /hpf (<or=2+); Red Blood Cells-Urine 0 SEEN /hpf (0-5); Squamous Epithelial Cells - UA 0 SEEN /hpf (0-5)
[2022-04-22 08:45] LABS: Color, Urine Yellow (Yellow); Glucose, Dipstick Normal (Normal); Ketone-Dipstick Negative (Negative); Leukocyte Esterase-Dipstick 500 /ul (Negative); Nitrite-Dipstick Negative (Negative); Occult Blood-Urine 25 /ul (Negative); Protein-Dipstick 500 mg/dl (Negative); Urine Bilirubin Dipstick Negative (Negative); Urine Clarity Cloudy (Clear); Urine Urobilinogen Normal (Normal)
[2022-04-22 08:51] LABS: White Blood Cells >100 SEEN /hpf (0-5)
[2022-04-22 08:51] LABS: Anion Gap 9 (5-15); BUN 24 mg/dL (7-18); BUN/Creat Ratio 15.8 RATIO (10-20); Calcium,Total 9.6 mg/dL (8.5-10.1); Chloride 104 mmol/L (98-107); Creatinine, Serum 1.52 mg/dL (0.70-1.30); EST Glomerular Filtration Rate 47 mL/min (>60); Est Glom Filt Rate - Afr Amer 56 mL/min (>60); Estimated Creatinine Clearance 37.35 ml/min; Glucose 182 mg/dL (74-106); Potassium 3.8 mmol/L (3.5-5.1); Sodium Level 138 mmol/L (136-145)
--- NOTE | 2022-04-22 09:02 | US_ITS ---
STUDY: SCROTUM ULTRASOUND REASON FOR EXAM: Male, 86 years old. Right testicle pain and swelling TECHNIQUE: Ultrasound evaluation of the scrotum was performed with color Doppler and static mandel-scale imaging. COMPARISON: None. FINDINGS: RIGHT TESTICLE INTRATESTICULAR: There is a normal size of the right testicle. The right testicle measures 3.5 x 2.5 x 2.3 cm. There is a heterogeneous echotexture. There is increased arterial and increased venous vascularity. There is no demonstrated right testicular mass or cyst. EXTRATESTICULAR: The epididymis is normal in size. The epididymis head measures 0.9 cm. There is increased (hyperemic) vascularity of the epididymis. There is a 0.2 cm epididymal cyst. There is no demonstrated hydrocele. There is no demonstrated varicocele. There is no demonstrated extratesticular mass or cyst. LEFT TESTICLE INTRATESTICULAR: There is a normal size of the left testicle. The left testicle measures 3.6 x 1.8 x 1.6 cm. There is a heterogeneous echotexture. There is normal arterial and normal venous vascularity. There is no demonstrated left testicular mass or cyst. EXTRATESTICULAR: The epididymis is normal in size. The epididymis head measures 1.1 cm. There is normal vascularity of the epididymis. There is a 0.3 cm epididymal cyst. There is no demonstrated hydrocele. There is no demonstrated varicocele. There is no demonstrated extratesticular mass or cyst. US/Testicular with Arterial Flow IMPRESSION: Heterogeneous testicles without intratesticular mass, or torsion Increased vascularity to the right testicle and right epididymis suggesting epididymal orchitis. Bilateral epididymal cysts Electronically Signed: Critsopher Quezada MD at 11:21 EDT ,
--- NOTE | 2022-04-22 09:03 | CT_ITS ---
STUDY: CT ABDOMEN AND PELVIS WITHOUT CONTRAST REASON FOR EXAM: Male, 86 years old. urinary retention. TURP PROCEDURE ONE MONTH AGO RADIATION DOSAGE (If Supplied By Facility): CTDIvol = ( 8.74 ) mGy, DLP = ( 438.90 ) mGycm TECHNIQUE: Transaxial images were obtained from the dome of the diaphragm to the symphysis pubis without oral contrast, and without intravenous contrast. Sagittal and coronal images were reconstructed. Individualized dose optimization techniques were used for this CT. COMPARISON: 02/13/2022 FINDINGS: Subcentimeter pleural-based nodules of the right lung base stable. Coronary artery atherosclerosis. Normal liver. Normal gallbladder and extrahepatic biliary system. Normal spleen. Normal pancreas. Normal bilateral adrenal glands. No hydronephrosis. Bilateral intrarenal calcifications are likely vascular. Bilateral renal cysts are unchanged. No required imaging follow-up needed given high likelihood of benign nature. Normal visualized stomach. Normal small intestine. There are multiple colonic diverticula consistent with diverticulosis. The appendix is visualized and appears normal. Atherosclerosis and tortuosity of the thoracic aorta with similar axial dimension since the prior study. Normal inferior vena cava. Normal retroperitoneum. No bladder wall thickening. Bladder is moderately distended. Normal abdominal wall. There are diffuse degenerative changes of the visualized lumbar spine. CT/Abdomen/Pelvis without Cont IMPRESSION: 1. No bladder wall thickening. No hydronephrosis. 2. Stable chronic changes, as above. Electronically Signed: Alexsander Barron MD ([place]) at 10:10 EDT ,
[2022-04-22] MEDS: 0.9% Normal Saline 1,000 ML 999 ML IV (09:18)
--- NOTE | 2022-04-22 09:31 | ED.RN ---
ATTEMPTED TO PLACE CATHETER WITH 14 NIUEAN COUDE. UNABLE TO ADVANCE CATHETER PAST URINARY MEATUS. PT TOLERATED WELL. URINE LEAKING OUT OF MEATUS. DR. JAIN INFORMED.
[2022-04-22 09:44] VITALS: BP 202/72; PULSE 72; RESP 18; O2SAT 98
[2022-04-22] MEDS: Ceftriaxone 1 GM/50 ML BAG IV (09:44)
[2022-04-22 11:56] VITALS: BP 200/91; PULSE 78; RESP 16; O2SAT 96
[2022-04-22] MEDS: Lidocaine Jelly 2% 20 ML Syringe (URO-JET) 1 APPLIC TOPICAL (12:40)
--- NOTE | 2022-04-22 12:41 | ED.RN ---
ADDITIONAL CATHETER REQUEST AT DR. JAIN REQUEST. ATTEMPT UNSUCCESSFUL. DR. JAIN INFORMED. PT TOLERATED WELL.
[2022-04-22] MEDS: Tamsulosin HCl 0.4 MG Capsule PO (14:38)
[2022-04-22 14:40] VITALS: BP 197/85; PULSE 68; RESP 16; O2SAT 98
== END 2022-04-22 14:55 | disposition home or self-care (01) ==
PROVIDERS: Emergency Provider Student in an Organized Health Care Education/Training Program; PCP Internal Medicine; Visit Provider Student in an Organized Health Care Education/Training Program
DX: N39.0 Urinary tract infection, site not specified (principal); J44.9 Chronic obstructive pulmonary disease, unspecified; E11.22 Type 2 diabetes mellitus with diabetic chronic kidney disease; N18.4 Chronic kidney disease, stage 4 (severe); I12.9 Hypertensive chronic kidney disease with stage 1 through stage 4 chronic kidney disease, or unspecified chronic kidney disease; N50.811 Right testicular pain; I25.10 Atherosclerotic heart disease of native coronary artery without angina pectoris; E78.00 Pure hypercholesterolemia, unspecified; M51.36 Other intervertebral disc degeneration, lumbar region; K21.9 Gastro-esophageal reflux disease without esophagitis; I25.2 Old myocardial infarction; G47.33 Obstructive sleep apnea (adult) (pediatric); Z87.891 Personal history of nicotine dependence; Z79.82 Long term (current) use of aspirin; Z79.84 Long term (current) use of oral hypoglycemic drugs; Z79.899 Other long term (current) drug therapy; Z95.5 Presence of coronary angioplasty implant and graft
CPT/HCPCS: 74176; 76870; 80048; 81001; 85025; 93976; 96365; 99285; J7030; A4216

== ENCOUNTER 2022-05-07 15:00 | Outpatient (RCR) | payer MEDICARE, SELFPAY ==
--- NOTE | 2022-03-23 16:01 | HP.PTEVAL_ITS ---
Patient's Visit Information DESIREE ROSAS is a 86 year old M referred to Physical Therapy by Dr. Jason Kearney MD with a diagnosis of Debility. Date of Evaluation: 03/23/22 Physical Therapist: Vinod Del Rio, PT, ATC - Visit Plan Frequency: 2-3x /Week Duration: 4-6 Weeks Plan: B LE strengthening, core stab ex's, balance ex's, gait training stair negotiation, nustep, and HEP - Subjective Pt reports he had a procedure performed on him 2 weeks ago at the hospital for a prostrate issue. Pt reports he was then tranferred to the TCU for the past 2 weeks. Pt reports he has become very debilitated secondary to this episode. Pt reports he had PT while in the [facility], but notes he was really tired as soon as he had the surgery. Pt reports he was unable to even lift his legs after having this surgery. Pt notes he had a significant difficulty with ambulation after the surgery as well. Pt reports he is doing much better now, but he is still weak compared to his premorbid level. Pt has 3 steps to get into his house. Pt must negotiate them one step at a time. 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 - Objective Neuro: B LE sensation is WNL to light touch. B patellar reflex= 2/3. MMT:, B LE's are grossly 4-/5 throughout. ROM: B LE's are WFL when compared bilaterally. Gait: Pt is able to ambulate 200 feet with WW and CGAx1 until feeling fatigued and having to rest - Balance/Special Test Scores Lower Extremity Functional Score: 26 - Goals Goal 1:: Increase B LE strength x 1 grade to aid with stair negotiation Goal Time Frame: 4-6 Weeks Goal 2:: Pt will ambulate greater than 600 feet to aid with community ambulation Goal Time Frame: 4-6 Weeks Goal 3:: Pt will be able to reciprocally negotiate 10 stairs I to aid with community activity Goal Time Frame: 4-6 Weeks Goal 4:: I with HEP Goal Time Frame: 4-6 Weeks - Rehabilitation Potential Physical Therapy Diagnosis: Pt has LE weakness, unsteady gait, and difficulty with prolonged ambulation secondary to debility Rehabilitation Potential: Good - Anticipated Interventions Patient/Client Instruction: Educate patient on: Condition, Plan of Care For the Purpose of:: To improve self management Therapeutic Exercise to Include: Strength training, Endurance training, Balance training, Gait and locomotor training, Dynamic Lumbar Stabilization For the Purpose of:: To increase oxygenation perfusion, To improve muscle performance and motor function, To increase tolerance to activity/condition/position Thank you for the opportunity to evaluate your patient. For Medicare and Medicare HMO plans, please review the plan of care and approve it. It will need to be FAXED BACK to us at [phone] for Medicare purposes. For Medicare only, by signing this I certify the plan of care. Please let me know if there are questions or concerns regarding this plan of care. Physician Signature: _Date:
--- NOTE | 2022-06-26 13:37 | HP.PT.NRP ---
DESIREE ROSAS was seen in my office for initial evaluation on 03/23/22. The following Plan of Care was established for this patient: Initial Frequency: 2-3x /Week Initial Duration: 4-6 Weeks Patient/Client Instruction: Educate patient on: Condition, Plan of Care For the Purpose of:: To improve self management Therapeutic Exercise to Include: Strength training, Endurance training, Balance training, Gait and locomotor training, Dynamic Lumbar Stabilization For the Purpose of:: To increase oxygenation perfusion, To improve muscle performance and motor function, To increase tolerance to activity/condition/position This patient was last seen in our office . Pertinent comments regarding their Physical therapy will appear below: Pt was treated for debility for 8 PT visits through the date of 05/07/22. Pt has not returned through todays date and is discontinued at this time. At this point I will be discontinuing this patient from physical therapy. I would be happy to see this patient again in the future if found appropriate by the physician. Thank you! Vinod Del Rio, PT, ATC Balance/Gait/Functional tests - Balance/Special Test Scores Lower Extremity Functional Score: 26
== END 2022-05-07 19:00 | disposition home or self-care (01) ==
LOC: PT 15:00
PROVIDERS: PCP Internal Medicine; Referring Provider Family Medicine Geriatric Medicine; Visit Provider Internal Medicine
DX: R53.81 Other malaise (principal); J44.9 Chronic obstructive pulmonary disease, unspecified
CPT/HCPCS: 97110; 97161

== ENCOUNTER 2022-05-15 06:44 | Inpatient (IN) | payer MEDICARE, SELFPAY ==
[2022-05-15] VITALS (24 sets, daily range): BP systolic 144–249; BP diastolic 60–117; PULSE 60–84; RESP 15–31; TEMP 36.5–37.1; O2SAT 85–100; BMI 31.2; BMI 27.4
--- NOTE | 2022-05-15 06:53 | EKG12_ITS ---
Test Reason : SOB Blood Pressure : / mmHG Vent. Rate : 069 BPM Atrial Rate : 069 BPM P-R Int : 238 ms QRS Dur : 090 ms QT Int : 438 ms P-R-T Axes : 055 038 006 degrees QTc Int : 469 ms Sinus rhythm with 1st degree A-V block with Premature supraventricular complexes Nonspecific ST abnormality Abnormal ECG Confirmed by JUAN SMITH, ANA ([id number]), food expeditor LASHANDA GARNETT ([id number]) on 05/16/2022 12:49:58 PM Referred By: Alphonso Confirmed By:ANA MARTINEZ MD
--- NOTE | 2022-05-15 06:53 | RAD_ITS ---
HISTORY: sob. TECHNIQUE: XR Chest 1 View. COMPARISON: 11/01/2021. FINDINGS: CARDIOMEDIASTINAL BORDERS: Cardiac silhouette within normal limits in size. Mediastinal contour unchanged with calcification and tortuosity of the aorta. LUNGS: Upper lobe lucency with increased interstitial opacities in the mid to lower lungs. PLEURA: No pleural effusion or pneumothorax seen. OSSEOUS STRUCTURES: Cortical plate and screw fixation of the right clavicle. RAD/Chest 1 View (Portable) IMPRESSION: Mild interstitial opacities from early pulmonary edema or interstitial pneumonia. Electronically Signed: Kelsie Jin MD at 8:09 EDT ,
--- NOTE | 2022-05-15 06:55 | EDS_ITS ---
HPI History of Present Illness Chief Complaint: Shortness of Breath Informant: patient and spouse/S.O. Onset/Context/Timing Onset: Yesterday Context: gradual and onset Timing: Continuous Quality: Positive for Dyspnea on exertion Current Severity: Severe Maximum Severity: Severe Worsened by: Exertion; Not Worsened By Lying flat Relieved by: Rest; Not Relieved By Albuterol (last tried last night at home) Associated Symptoms Negative for cough Chest Pain: Positive for None Narrative Narrative: Patient presenting with dyspnea this morning, worse upon waking up this morning but gradually getting worse over the past day or so. He lives at home with his and was brought in by her this morning, she states she did not know anything about this until half an hour ago, so cannot really provide a lot of help for him with regards to history. He states yesterday, his jaw and shoulders were bothering him while he was dyspneic but not his chest or his back. He denies any cough lately or fevers/chills. He denies any shoulder, jaw, arm, chest discomfort today. He last tried a breathing treatment last night and it did not help. He has history of COPD and is on no oxygen at home, yet this morning upon being evaluated in triage he was 86-87% on room air and was immediately placed on oxygen via nasal cannula which helped. Chronic swelling in his legs, he states that is no worse than usual today and he denies any orthopnea. His last echo was almost 1.5 years ago and showed no evidence of systolic dysfunction or congestive heart failure. He is on hydralazine in addition to other medications. [facility] Medical History Abdominal aortic aneurysm (AAA) Acute cystitis with hematuria Ambulates with cane Aortic aneurysm Arthritis Asthma Atherosclerotic heart disease of [place] coronary artery without angina pectoris Back pain BiPAP (biphasic positive airway pressure) dependence Cancer Cardiology follow-up encounter Carotid bruit Chest pain Chronic cough CKD (chronic kidney disease) stage 4, GFR 15-29 ml/min COPD (chronic obstructive pulmonary disease) Daytime hypersomnia DDD (degenerative disc disease), lumbar Diabetes DM2 (diabetes mellitus, type 2) Dyslipidemia Easy bruising Essential (primary) hypertension Former smoker Gastric reflux High cholesterol History of echocardiogram History of edema History of heart attack History of hiatal hernia History of irregular heartbeat History of pain when walking History of renal disease History of steroid therapy History of stress test HLD (hyperlipidemia) Hoarseness Hypertension Injury of back Kidney stone Leg cramps MARIXA (obstructive sleep apnea) Overweight Patellar bursitis of right knee Peripheral vascular disease of extremity with claudication Pre-syncope PVD (peripheral vascular disease) Rectus sheath hematoma Recurrent urinary tract infection Restless legs Restless legs syndrome Seasonal allergies Shortness of breath on exertion Sleep apnea Somatic dysfunction of pelvic region Walker as ambulation aid Wears dentures Wears glasses Wears hearing aid Home Medications aspirin 81 mg chewable tablet 81 mg PO QHS heart health 03/28/14 [History Last Taken 02/27/22] isosorbide mononitrate 30 mg tablet,extended release 24 hr 30 mg PO DAILY heart 03/28/14 [History Last Taken 03/09/22] pantoprazole 40 mg tablet,delayed release 40 mg PO DAILY reflux 03/28/14 [History Last Taken 03/09/22] ammonium lactate 12 % lotion 1 applic topical QD-BID PRN dry skin 02/06/18 [History Last Taken Unknown] triamcinolone acetonide 55 mcg nasal spray aerosol (Nasacort) 2 spray intranasal DAILY allergies 09/04/18 [History Last Taken 03/09/22] handicap placcard #1 ea 09/28/19 [Rx Last Taken Unknown] ascorbate calcium (vitamin C) 500 mg tablet 500 mg PO DAILY Bone strength 05/03/20 [History Last Taken 03/09/22] coenzyme Q10 100 mg capsule (Co Q-10) 100 mg PO DAILY 05/03/20 [History Last Taken Unknown] cholecalciferol (vitamin D3) 100 mcg (4,000 unit) tablet 100 mcg PO DAILY 11/03/20 [History Last Taken Unknown] spacer #1 ea 01/12/21 [Rx Last Taken Unknown] nitroglycerin 0.4 mg sublingual tablet (Nitrostat) 0.4 mg sublingual Q5-15M PRN chest pain #25 tabs 11/01/21 [Rx Last Taken Unknown] albuterol sulfate 90 mcg/actuation aerosol inhaler (Ventolin HFA) 2 inh inhalation Q4H PRN shortness of breath or wheezing #18 grams 11/27/21 [Rx Last Taken Unknown] metformin 850 mg tablet 500 mg PO BID Blood Glucose 01/25/22 [History Last Taken 03/09/22] atorvastatin 40 mg tablet 40 mg PO QODAY cholesterol #45 tabs 02/20/22 [Rx Last Taken 03/08/22] ipratropium 0.5 mg-albuterol 3 mg (2.5 mg base)/3 mL nebulization soln 3 ml inhalation 4X/DAY PRN PRN shortness of breath or wheezing #90 mL 02/21/22 [Rx Last Taken 03/09/22] ipratropium bromide 42 mcg (0.06 %) nasal spray 2 spray intranasal TID-QID PRN allergy symptoms #15 mL 02/21/22 [Rx Last Taken Unknown] budesonide-formoterol HFA 160 mcg-4.5 mcg/actuation aerosol inhaler (Symbicort) 2 puff inhalation BID Respitory 03/09/22 [History Last Taken 03/06/22] carvedilol 12.5 mg tablet 12.5 mg PO BID B/P 03/09/22 [History Last Taken 03/09/22] hydrochlorothiazide 25 mg tablet 25 mg PO DAILY Diuretic 03/09/22 [History Last Taken 03/09/22] loratadine 10 mg capsule 10 mg PO QDAY Allergies 03/09/22 [History Last Taken 03/09/22] montelukast 10 mg tablet 10 mg PO QHS Respiratory 03/09/22 [History Last Taken 03/08/22] acetaminophen 500 mg tablet 1,000 mg PO Q6H PRN PRN Pain Score 1-10 #0 tabs 03/19/22 [Rx Last Taken Unknown] ropinirole 0.5 mg tablet 0.5 mg PO TID 04/22/22 [History Last Taken Unknown] tamsulosin 0.4 mg capsule (Flomax) 0.4 mg PO DAILY #30 caps 04/22/22 [Rx Last Taken Unknown] hydralazine 25 mg tablet 50 mg PO TID B/P 05/11/22 [History Last Taken Unknown] Allergy/AdvReac Type Severity Reaction Status Date / Time cilostazol [From Pletal] Allergy Unknown Verified 05/15/22 06:49 felodipine Allergy Hives Verified 05/15/22 06:49 levofloxacin Allergy Hives Verified 05/15/22 06:49 Sulfa (Sulfonamide Allergy Unknown Verified 05/15/22 06:49 Antibiotics) Family History (Reviewed 05/02/22 @ 13:52 by Marguerite Jennings [employer] K[employer]TLE [employer]ENDER, RECLAMATION KETTLE TENDER-C) Father Diabetes Cancer Prostate cancer Surgical History H/O aortic aneurysm repair (11/1998) History of coronary artery stent placement (02/17/08) History of endarterectomy (07/2018) History of hernia repair History of left heart catheterization (03/2014) History of transurethral resection of prostate History of vascular surgery (08/2018) Social History household members: spouse Smoking Status: Former smoker how long ago did patient quit smokin years ago alcohol intake: current alcohol intake frequency: holidays/special occasions only details: hx of alcohol abuse substance use type: does not use caffeine: No what type of physical activity do you participate in: other details: Nustep frequency: 5-6 times per week duration: 15-30 minutes/day seatbelt use: always do you feel safe at home: Yes ROS ROS ED Constitutional Constitutional ED: Reports malaise; Denies chills or fever(s) Eyes Eyes: Denies change in vision or diplopia ENT ENT ED: Denies rhinorrhea or sore throat Cardiovascular Cardiovascular: Reports as per HPI and leg edema; Denies chest pain, orthopnea, palpitations or racing heartbeat Respiratory/Chest Respiratory/Chest: Reports dyspnea and dyspnea on exertion; Denies cough or orthopnea Gastrointestinal Gastrointestinal: Denies abdominal pain, diarrhea, nausea or vomiting Genitourinary Genitourinary ED: Denies dysuria or hematuria Musculoskeletal Musculoskeletal: Denies back pain or neck pain Integumentary Denies abscess or rash Neurologic Neurologic: Denies headache(s), paresthesias or weakness Psychiatric Psychiatric: Denies anxiety or suicidal thoughts EXAM Physical Exam Const Vital Signs: 05/15/22 06:45 05/15/22 06:48 05/15/22 06:48 Temperature 97.7 F L 97.7 F L Temperature Source Temporal Temporal Pulse Rate 83 84 Respiratory Rate 31 H 30 H Respiratory Effort Respiratory Depth Respiratory Pattern Blood Pressure 249/117 H 249/117 H Blood Pressure Mean 161 161 Pulse Ox 98 85 97 Oxygen Delivery Method Nasal Cannula Room Air Nasal Cannula Oxygen Flow Rate (L/min) 5 5 05/15/22 06:50 05/15/22 07:07 05/15/22 07:48 Temperature Temperature Source Pulse Rate 67 67 Respiratory Rate 25 H 20 H Respiratory Effort Short of Breath Respiratory Depth Normal Respiratory Pattern Normal Tachypnea Blood Pressure 191/81 H Blood Pressure Mean 117 Pulse Ox 99 Oxygen Delivery Method Nasal Cannula Room Air Oxygen Flow Rate (L/min) 3 Positive well nourished and well developed Constitutional Narrative: Mild respiratory distress General Appearance ED: well developed HEENT Reports moist mucous membranes normocephalic and atraumatic Eyes PERRL and EOMs intact bilaterally Neck full ROM and supple Neck Narrative: Mild JVD present Resp Resp Narrative: Increased work of breathing, speaking in 1-3 word sentences. Diffuse expiratory wheezes with possibly a few inspiratory rhonchi in the apices bilaterally only. Cardio regular rate, regular rhythm and no murmurs GI non-tender and non-distended Auscultation: normoactive bowel sounds Palpation: soft Back/Spine no CVA tenderness General Back: other FROM Extremity normal to inspection General Extremety ED: Yes edema; Negative for pulses abnormal or tenderness General Extremity: edema bilateral lower extremity Details: moderate; Negative for pulses abnormal Neuro oriented x3, CN's II-XII intact bilaterally and no sensory deficits noted Sensorium / Orientation: awake and alert Motor Exam: strength 5/5 throughout Skin no rashes or lesions noted and no wounds MDM MDM MDM Narrative Medical decision making narrative: EKG shows no ischemic abnormalities, and his troponin is within normal limits. 1 view chest x-ray my interpretation appears to show an interstitial process. Radiology in agreement, not differentiating between infectious versus noninfectious etiologies. He does not have a leukocytosis, and his blood pressure is extremely high, 249/117 initially. My suspicion is that this is not infectious. He was initially given hydralazine as well as some nebulizer treatments, this did help his blood pressure temporarily as well as his breathing some but he was still dyspneic, not in need of noninvasive mechanical ventilation or other assistance, but still feeling dyspneic. We were able to wean his oxygen down, blood pressure still 191/81. Given furosemide, another dose of hydralazine. Minor renal insufficiency stable, awaiting BNP. Plan is for admission, unknown if this is cardiogenic or if it is a result of severely elevated blood pressure which is also in the differential. Lab Data Attestation: I reviewed the patient's lab results. Labs: Laboratory Results - last 24 hr 05/15/22 05/15/22 06:50 06:50 WBC 9.0 RBC 3.86 L Hgb 10.7 L Hct 34.6 L MCV 89.6 MCH 27.7 MCHC 30.9 L RDW Std Deviation 47.0 H RDW Coeff of Justin 14.5 Plt Count 239 MPV 11.0 Immature Gran % (Auto) 0.200 Neut % (Auto) 49.1 Lymph % (Auto) 38.4 Lassen % (Auto) 10.0 Eos % (Auto) 1.9 Baso % (Auto) 0.4 Absolute Neuts (auto) 4.4 Absolute Lymphs (auto) 3.46 Nucleated RBC % 0 Sodium 139 Potassium 3.9 Chloride 105 Carbon Dioxide 26.0 Anion Gap 8 BUN 20 H Creatinine 1.44 H Estim Creat Clear Calc 39.43 Est GFR (MDRD) Af Amer 60 Est GFR (MDRD) Non-Af 50 L BUN/Creatinine Ratio 13.9 Glucose 157 H Calcium 9.4 Troponin I High Sens 38 Radiography Diagnostic Testing: Clinical Impression(s) from Imaging Studies Chest X-Ray 05/15/22 06:53 IMPRESSION: Mild interstitial opacities from early pulmonary edema or interstitial pneumonia. Electronically Signed: Kelsie Jin MD at 8:09 EDT Reading Location ID and State: [facility] / [place] Tel , Service support , Rhythm Strip Rhythm Strip: Sinus Rhythm Rate: 80 Ectopy: None EKG Initial EKG: Attestation: I personally reviewed and interpreted this EKG as follows: Interpretation: Sinus Rhythm, No Acute Injury Pattern and AV Block (1st deg) Comments: PAC, artifactually wavering baseline otherwise normal EKG Discharge Plan Triage Chief Complaint: Shortness of Breath ED Provider: Elvin Milligan Dx/Rx/DC Orders Clinical Impression: Pulmonary edema, CKD (chronic kidney disease) stage 4, GFR 15-29 ml/min, Acute respiratory failure with hypoxia, Hypertensive urgency Prescriptions: No Action ammonium lactate 12 % lotion 1 applic TOPICAL QD-BID PRN (Reason: dry skin ) triamcinolone acetonide [Nasacort] 55 mcg aerosol,spray 2 spray INTRANASAL DAILY (DME) handicap placcard Qty: 1 0RF Rx Instructions: Lifetime: debility coenzyme Q10 [Co Q-10] 100 mg capsule 100 mg PO DAILY ascorbate calcium (vitamin C) 500 mg tablet 500 mg PO DAILY cholecalciferol (vitamin D3) 100 mcg (4,000 unit) tablet 100 mcg (4,000 unit) tablet 100 mcg PO DAILY (DME) spacer See Rx Instructions .ROUTE .MEDSUPPLY Qty: 1 0RF Rx Instructions: As directed nitroglycerin [Nitrostat] 0.4 mg tablet, sublingual 0.4 mg SUBLINGUAL Q5-15M PRN (Reason: chest pain) Qty: 25 2RF ipratropium-albuterol 0.5 mg-3 mg(2.5 mg base)/3 mL solution for nebulization 3 ml inhalation 4X/DAY PRN PRN (Reason: shortness of breath or wheezing) Qty: 90 6RF ipratropium bromide 42 mcg (0.06 %) spray,non-aerosol 2 spray INTRANASAL TID-QID PRN (Reason: allergy symptoms) Qty: 15 6RF Rx Instructions: nasal drip - administer into each nostril; wait 30 seconds between sprays metformin 850 mg tablet 500 mg PO BID pantoprazole 40 MG tablet 40 mg PO DAILY Label Comments: acid reflux aspirin 81 MG tablet,chewable 81 mg PO QHS Label Comments: antiplatelet isosorbide mononitrate 30 MG tablet 30 mg PO DAILY Label Comments: heart carvedilol 12.5 mg tablet 12.5 mg PO BID montelukast 10 mg tablet 10 mg PO QHS hydrochlorothiazide 25 mg tablet 25 mg PO DAILY budesonide-formoterol [Symbicort] 160-4.5 mcg/actuation HFA aerosol inhaler 2 puff INHALATION BID Rx Instructions: administer with spacer, rinse mouth after each use loratadine 10 mg capsule 10 mg PO QDAY Rx Instructions: allergies acetaminophen 500 mg Tablet 1,000 mg PO Q6H PRN PRN (Reason: Pain Score 1-10) Qty: 0 0RF ropinirole 0.5 mg Tablet 0.5 mg PO TID tamsulosin [Flomax] 0.4 mg capsule 0.4 mg PO DAILY Qty: 30 0RF albuterol sulfate [Ventolin HFA] 90 mcg/actuation HFA aerosol inhaler 2 inh INHALATION Q4H PRN (Reason: shortness of breath or wheezing) Qty: 18 6RF atorvastatin 40 mg tablet 40 mg PO QODAY Qty: 45 3RF hydralazine 25 mg tablet 50 mg PO TID Primary Care Provider: Emeka Horn Referrals: Emeka Horn MD [Primary Care Provider] - Disposition Disposition: Acute Care Hospital [facility]
[2022-05-15] MEDS: Albuterol 2.5 MG/3 ML VIAL.NEB. INHALATION ×2 (07:01→21:41)
[2022-05-15] MEDS: Ipratropium/Albuterol Sulfate 3 ML AMPUL.NEB INHALATION (07:01)
[2022-05-15] MEDS: hydrALAZINE 20 MG/ML Vial 10 MG IV ×3 (07:12→13:20)
[2022-05-15 07:38] LABS: Anion Gap 8 (5-15); BUN 20 mg/dL (7-18); BUN/Creat Ratio 13.9 RATIO (10-20); Calcium,Total 9.4 mg/dL (8.5-10.1); Chloride 105 mmol/L (98-107); Creatinine, Serum 1.44 mg/dL (0.70-1.30); EST Glomerular Filtration Rate 50 mL/min (>60); Est Glom Filt Rate - Afr Amer 60 mL/min (>60); Estimated Creatinine Clearance 39.43 ml/min; Glucose 157 mg/dL (74-106); Potassium 3.9 mmol/L (3.5-5.1); Sodium Level 139 mmol/L (136-145); Troponin-I HS 38 pg/mL (3.0-78.0)
[2022-05-15 08:41] LABS: Absolute Lymphocyte Count 3.46 X10^3/uL (0.83-4.51); Absolute Neutrophil Count 4.4 X10^3/uL (2.0-7.7); Basophil# 0.04 X10^3/uL; Basophil% 0.4 % (0-1); Eosinophil# 0.17 X10^3/uL; Eosinophils% 1.9 % (0-5); Hematocrit 34.6 % (40-54); Hemoglobin 10.7 g/dL (13.0-16.5); Lymphocyte # 3.46 X10^3/ul (0.83-4.51); Lymphocyte % 38.4 % (19-41); Mean Corp Hgb Conc 30.9 g/dL (32-36); Mean Corpuscular Hgb 27.7 pg (27.0-32.0); Mean Corpuscular Volume 89.6 fL (80-94); NRBC Flagged by Analyzer 0 % (0-5); Neutrophil # 4.43 X10^3/uL (2.7-7.7); Neutrophil % 49.1 % (47-70); Platelet Count 239 K/mm3 (150-450); RBC Distribution Width CV 14.5 % (11.6-14.6); Red Blood Count 3.86 M/mm3 (4.6-6.2)
[2022-05-15] MEDS: Furosemide 20 MG/2 ML VIAL IV ×2 (08:56→09:24)
--- NOTE | 2022-05-15 09:22 | PCM.HP.STD ---
[facility] - General General Date of Admission: 05/15/22 Date of Service: 05/15/22 Chief Complaint: SOB [facility] Narrative DESIREE ROSAS, is a 86 M who presented to the emergency department was coming hospital with acute onset shortness of breath that started about midnight last evening. The patient stated that he has gradually noticed some worsening over the last day or so but this morning when he got out of bed it was severe enough that he decided to come to the emergency department. He reports cough of some clear sputum that started during this time. As well. He has no fever or chills. He is not dependent on oxygen at home however when he presented to the emergency department his oxygen saturations were 86 to 87% on room air and he was immediately placed on supplemental oxygen. He complains of orthopnea but no paroxysmal nocturnal dyspnea he indicates his legs are swollen quite chronically and no worse than his baseline. He reports that his blood pressure has been somewhat labile and when he checks in the evening he is anywhere from 140 190 systolic. At his last cardiology appointment on 05/02/2022 medications were changed at which time his nifedipine was discontinued and his hydralazine was increased from 50 twice daily to 50 3 times daily. He states he feels better when his systolic blood pressure is greater than 130 and he is significantly symptomatic with lightheadedness if it is lower than this. I suspect he is autoregulated to high pressures and that is why symptomatic with more normal pressures. The patient indicated that he has not yet taken his a.m. blood pressure medication and is due. Upon presentation the emergency department his temperature was 97.7, heart rate 83, blood pressure 149/117, respiratory rate was 31 and has improved to 20, and oxygen saturation was 86 to 87% on room air and improved to 98% on 5 L nasal cannula. His CBC is unremarkable except for chronic stable normocytic anemia with a hemoglobin in the 10-11 range, which is his baseline. His BMP shows normal electrolytes and a stable CKD stage IIIb with a baseline serum creatinine of 1.2-1.5. Current serum creatinine is 1.44. Serum glucose was 157. Troponin was 38 which is stable compared to previous. His BNP was elevated at 674 which is markedly elevated compared to his BNP obtained on 01/25/2022 at which time it was 82.8. His chest x-ray shows increased interstitial infiltrates suspicious for pulmonary edema and his EKG is normal sinus rhythm with a prolonged NC interval and first-degree heart block but no ST-T wave changes consistent with acute ischemia. In the emergency department he was treated with IV hydralazine as well as 40 mg of IV Lasix x1 dose. [facility] Medical History Abdominal aortic aneurysm (AAA) Acute cystitis with hematuria Ambulates with cane Anemia Aortic aneurysm Arthritis Asthma Atherosclerotic heart disease of [place] coronary artery without angina pectoris Back pain BiPAP (biphasic positive airway pressure) dependence Cancer Cardiology follow-up encounter Carotid bruit Chest pain Chronic cough COPD (chronic obstructive pulmonary disease) Daytime hypersomnia DDD (degenerative disc disease), lumbar Diabetes DM2 (diabetes mellitus, type 2) Dyslipidemia Easy bruising Essential (primary) hypertension Former smoker Gastric reflux High cholesterol History of echocardiogram History of edema History of heart attack History of hiatal hernia History of irregular heartbeat History of pain when walking History of renal disease History of steroid therapy History of stress test HLD (hyperlipidemia) Hoarseness Hypertension Injury of back Kidney stone Leg cramps MARIXA (obstructive sleep apnea) Overweight Patellar bursitis of right knee Peripheral vascular disease of extremity with claudication Pre-syncope PVD (peripheral vascular disease) Rectus sheath hematoma Recurrent urinary tract infection Restless legs Restless legs syndrome Seasonal allergies Shortness of breath on exertion Sleep apnea Somatic dysfunction of pelvic region Stage 3b chronic kidney disease Walker as ambulation aid Wears dentures Wears glasses Wears hearing aid Home Medications aspirin 81 mg chewable tablet 81 mg PO QHS heart health 03/28/14 [History Last Taken 02/27/22] isosorbide mononitrate 30 mg tablet,extended release 24 hr 30 mg PO DAILY heart 03/28/14 [History Last Taken 03/09/22] pantoprazole 40 mg tablet,delayed release 40 mg PO DAILY reflux 03/28/14 [History Last Taken 03/09/22] ammonium lactate 12 % lotion 1 applic topical QD-BID PRN dry skin 02/06/18 [History Last Taken Unknown] triamcinolone acetonide 55 mcg nasal spray aerosol (Nasacort) 2 spray intranasal DAILY allergies 09/04/18 [History Last Taken 03/09/22] handicap placcard #1 ea 09/28/19 [Rx Last Taken Unknown] ascorbate calcium (vitamin C) 500 mg tablet 500 mg PO DAILY Bone strength 05/03/20 [History Last Taken 03/09/22] coenzyme Q10 100 mg capsule (Co Q-10) 100 mg PO DAILY 05/03/20 [History Last Taken Unknown] cholecalciferol (vitamin D3) 100 mcg (4,000 unit) tablet 100 mcg PO DAILY 11/03/20 [History Last Taken Unknown] spacer #1 ea 01/12/21 [Rx Last Taken Unknown] nitroglycerin 0.4 mg sublingual tablet (Nitrostat) 0.4 mg sublingual Q5-15M PRN chest pain #25 tabs 11/01/21 [Rx Last Taken Unknown] albuterol sulfate 90 mcg/actuation aerosol inhaler (Ventolin HFA) 2 inh inhalation Q4H PRN shortness of breath or wheezing #18 grams 11/27/21 [Rx Last Taken Unknown] metformin 850 mg tablet 500 mg PO BID Blood Glucose 01/25/22 [History Last Taken 03/09/22] atorvastatin 40 mg tablet 40 mg PO QODAY cholesterol #45 tabs 02/20/22 [Rx Last Taken 03/08/22] ipratropium 0.5 mg-albuterol 3 mg (2.5 mg base)/3 mL nebulization soln 3 ml inhalation 4X/DAY PRN PRN shortness of breath or wheezing #90 mL 02/21/22 [Rx Last Taken 03/09/22] ipratropium bromide 42 mcg (0.06 %) nasal spray 2 spray intranasal TID-QID PRN allergy symptoms #15 mL 02/21/22 [Rx Last Taken Unknown] budesonide-formoterol HFA 160 mcg-4.5 mcg/actuation aerosol inhaler (Symbicort) 2 puff inhalation BID Respitory 03/09/22 [History Last Taken 03/06/22] carvedilol 12.5 mg tablet 12.5 mg PO BID B/P 03/09/22 [History Last Taken 03/09/22] hydrochlorothiazide 25 mg tablet 25 mg PO DAILY Diuretic 03/09/22 [History Last Taken 03/09/22] loratadine 10 mg capsule 10 mg PO QDAY Allergies 03/09/22 [History Last Taken 03/09/22] montelukast 10 mg tablet 10 mg PO QHS Respiratory 03/09/22 [History Last Taken 03/08/22] acetaminophen 500 mg tablet 1,000 mg PO Q6H PRN PRN Pain Score 1-10 #0 tabs 03/19/22 [Rx Last Taken Unknown] ropinirole 0.5 mg tablet 0.5 mg PO TID 04/22/22 [History Last Taken Unknown] tamsulosin 0.4 mg capsule (Flomax) 0.4 mg PO DAILY #30 caps 04/22/22 [Rx Last Taken Unknown] hydralazine 25 mg tablet 50 mg PO TID B/P 05/11/22 [History Last Taken Unknown] Allergy/AdvReac Type Severity Reaction Status Date / Time cilostazol [From Pletal] Allergy Unknown Verified 05/15/22 06:49 felodipine Allergy Hives Verified 05/15/22 06:49 levofloxacin Allergy Hives Verified 05/15/22 06:49 Sulfa (Sulfonamide Allergy Unknown Verified 05/15/22 06:49 Antibiotics) Family History Father Diabetes Cancer Prostate cancer Surgical History H/O aortic aneurysm repair (11/1998) History of coronary artery stent placement (02/17/08) History of endarterectomy (07/2018) History of hernia repair History of left heart catheterization (03/2014) History of transurethral resection of prostate History of vascular surgery (08/2018) Social History household members: spouse Smoking Status: Former smoker how long ago did patient quit smokin years ago alcohol intake: current alcohol intake frequency: holidays/special occasions only details: hx of alcohol abuse substance use type: does not use caffeine: No what type of physical activity do you participate in: other details: Nustep frequency: 5-6 times per week duration: 15-30 minutes/day seatbelt use: always do you feel safe at home: Yes ROS Constitutional Constitutional: Reports weakness; Denies anorexia, change in weight, chills, fatigue, fever(s), malaise, night sweats or other Eyes Eyes: Denies blurry vision, change in eye color, change in vision, discharge from eye(s), double vision, erythema, eye pain, loss of vision or other ENT HEENT: Denies abnormal hearing, dysphagia, ear pain, epistaxis, headache(s), hearing loss, nasal congestion, nasal discharge, post nasal drip, sinus pressure, sore throat or other Cardiovascular Cardiovascular: Reports dyspnea on exertion, edema and orthopnea; Denies chest pain, claudication, lightheadedness, palpitations, paroxysmal nocturnal dyspnea, rapid heart rate, syncope or other Respiratory/Chest Respiratory/Chest: Reports cough, productive cough and shortness of breath with exertion; Denies dyspnea, excessive phlegm production, hemoptysis, shortness of breath at rest, wheezing or other Gastrointestinal Gastrointestinal: Reports constipation; Denies abdominal pain, coffee ground emesis, diarrhea, dyspepsia, hematemesis, hematochezia, loose stools, melena, nausea, vomiting or other Genitourinary Genitourinary: Reports nocturia and urinary hesitancy; Denies burning urination, difficulty urinating, dysuria, hematuria, urinary frequency, urinary incontinence, urinary urgency or other Musculoskeletal Musculoskeletal: Denies arthralgias, back pain, joint pain, joint stiffness, joint swelling, myalgias, neck pain or other Neurologic Neurologic: Denies abnormal gait, abnormal speech, confusion, disequilibrium, dizziness, focal weakness, headache(s), numbness, paresthesias, seizure-like activity, seizures, syncope, tingling, tremor(s) or other Psychiatric Psychiatric: Denies anxiety, depression, homicidal ideation, suicidal ideation or other Endocrine Endocrinology: Denies change in body appearance, cold intolerance, excessive sweating, heat intolerance, polydipsia, polyuria or other Hematologic/Lymphatic Hematologic/Lymphatic: Denies anemia, easy bleeding, easy bruising, lymphadenopathy or other Allergic/Immunologic Allergic/Immunologic: Denies rhinitis, hives, eczemia, asthma or other Vital Signs Vital Signs Vital Signs: 05/15/22 06:45 05/15/22 06:48 05/15/22 06:48 Temperature 97.7 F L 97.7 F L Temperature Source Temporal Temporal Pulse Rate 83 84 Respiratory Rate 31 H 30 H Respiratory Effort Respiratory Depth Respiratory Pattern Blood Pressure 249/117 H 249/117 H Blood Pressure Mean 161 161 Pulse Ox 98 85 97 Oxygen Delivery Method Nasal Cannula Room Air Nasal Cannula Oxygen Flow Rate (L/min) 5 5 05/15/22 06:50 05/15/22 07:07 05/15/22 07:48 Temperature Temperature Source Pulse Rate 67 67 Respiratory Rate 25 H 20 H Respiratory Effort Short of Breath Respiratory Depth Normal Respiratory Pattern Normal Tachypnea Blood Pressure 191/81 H Blood Pressure Mean 117 Pulse Ox 99 Oxygen Delivery Method Nasal Cannula Nasal Cannula Oxygen Flow Rate (L/min) 3 3 05/15/22 09:07 Temperature Temperature Source Pulse Rate 80 Respiratory Rate 20 H Respiratory Effort Respiratory Depth Respiratory Pattern Blood Pressure 201/83 H Blood Pressure Mean 122 Pulse Ox 97 Oxygen Delivery Method Nasal Cannula Oxygen Flow Rate (L/min) 3 Weight Weight: 98.8 kg Body Mass Index (BMI) 31.2 Physical Exam Const alert, oriented x3, no apparent distress, healthy appearing and well nourished Constitutional Narrative: Obese elderly white male sitting up in bed, appears comfortable and nontoxic, is at bedside, patient currently shows no signs of respiratory extremis, nursing at bedside dosing Lasix, patient currently on 3 L of oxygen General Appearance: cooperative HEENT normocephalic and head/scalp atraumatic HEENT Narrative: Moderate hearing loss, edentulous, mucous membranes moist, Mallampati 2, no thrush Eyes PERRL, EOMs intact bilaterally and conjunctivae normal Eyes Narrative: No scleral icterus Neck no lymphadenopathy, supple, no JVD and no carotid bruits Neck Narrative: Trachea midline, no thyroid enlargement Resp no retractions and no use of accessory muscles Resp Narrative: Crackles at bilateral bases with occasional end expiratory wheeze, no signs of respiratory distress, mild tachypnea although improved Auscultation: crackles; Negative for rales, rhonchi or wheezes Cardio regular rate, regular rhythm, S1 normal heart sound, S2 normal heart sound, no murmurs, no rub, no clicks and no JVD; Negative for no gallops Cardio Narrative: Positive S4 gallop GI normal to inspection, nondistended, normoactive bowel sounds, soft to palpation, non-tender and non-distended; Negative for hepatosplenomegaly Extremity Extremity Narrative: Bilateral lower extremity 1+ pitting edema, no cyanosis or clubbing Neuro oriented x3, CN's II-XII intact bilaterally, moves all extremities and no focal motor deficits Sensorium / Orientation: awake, alert, oriented to person, oriented to place and oriented to time Psych affect normal Psych Narrative: Pleasant and appropriately interactive Results Lab / Micro Data Attestation: I reviewed the patient's lab results. Result Diagrams: 05/15/22 06:50 05/15/22 06:50 Labs: Laboratory Results - last 24 hr 05/15/22 06:50: WBC 9.0, RBC 3.86 L, Hgb 10.7 L, Hct 34.6 L, MCV 89.6, MCH 27.7, MCHC 30.9 L, RDW Std Deviation 47.0 H, RDW Coeff of Justin 14.5, Plt Count 239, MPV 11.0, Immature Gran % (Auto) 0.200, Neut % (Auto) 49.1, Lymph % (Auto) 38.4, [place] % (Auto) 10.0, Eos % (Auto) 1.9, Baso % (Auto) 0.4, Absolute Neuts (auto) 4.4, Absolute Lymphs (auto) 3.46, Nucleated RBC % 0 05/15/22 06:50: Sodium 139, Potassium 3.9, Chloride 105, Carbon Dioxide 26.0, Anion Gap 8, BUN 20 H, Creatinine 1.44 H, Estim Creat Clear Calc 39.43, Est GFR (MDRD) Af Amer 60, Est GFR (MDRD) Non-Af 50 L, BUN/Creatinine Ratio 13.9, Glucose 157 H, Calcium 9.4, Troponin I High Sens 38 05/15/22 06:50: B-Natriuretic Peptide 674.0 H Micro: Microbiology 05/15/22 07:10 Nasal Secretion SARS-CoV-2 Antigen (Rapid) - Final Rhythm Strip Rhythm Strip: Sinus Rhythm Rate: 80 Ectopy: None Radiology Impression Chest X-Ray 05/15/22 06:53 IMPRESSION: Mild interstitial opacities from early pulmonary edema or interstitial pneumonia. Electronically Signed: Kelsie Jin MD at 8:09 EDT , Assessment & Plan Assessment/Plan (1) Acute respiratory failure with hypoxia: (2) Pulmonary edema: (3) Elevated brain natriuretic peptide (BNP) level: (4) Chronic constipation: (5) Hypertensive emergency: PLAN: Plan Acute hypoxic respiratory failure secondary to acute decompensated heart failure with preserved ejection fraction -Suspect diastolic in nature with markedly elevated blood pressures on presentation -Patient hypoxic and tachypneic on presentation requiring supplemental oxygen -Sats on presentation to the emergency department were 86 to 87% on room air -Patient is not O2 dependent baseline -Continue supplemental oxygen and wean as tolerated -Lasix 40 mg IV push twice daily -Continue home antihypertensives and adjust as needed -As needed hydralazine for systolic pressure greater than 160 -Would like to at least see his blood pressures between 130 and 140 on his consistent basis prior to discharge -Daily weights -Strict I's and O's -Cardiac diet -Lower extremity Robbie bandages -Monitor on telemetry -Repeat echocardiogram--> last echo was 1 and half years ago Hypertensive emergency with history of hypertension -Marked blood pressure elevations causing heart failure -Restart home medications -As needed hydralazine -Hold home hydrochlorothiazide given Lasix dosing -May need adjustments or additional antihypertensives for improved control Constipation -Patient states he took MiraLAX last evening and drink prune juice this morning -As needed senna is available -We will reevaluate tomorrow and if no bowel movement may redose MiraLAX DM-2 -Hold home metformin -Sliding scale insulin -Accu-Cheks before meals and at bedtime CKD stage IIIb -Current serum creatinine is 1.44 next-Baseline serum creatinine is 1.2-1.5 -Continue to monitor Hyperlipidemia -Continue home atorvastatin COPD -Continue home inhalers both as needed and scheduled BPH -Status post TURP in March -Continue home Flomax GERD -Continue home PPI Restless leg syndrome -Continue home ropinirole Seasonal allergies -Continue home Singulair -Continue home nasal spray Vitamin D deficiency -Hold cholecalciferol and restarted on discharge DVT prophylaxis -Lovenox 40 mg daily CODE STATUS -DNR CCA with no intubation as confirmed in the emergency department on admission Charges/Coding Visit Charges Inpatient E&M: 48330 Init Hosp L3
--- NOTE | 2022-05-15 11:07 | ECHOD_ITS ---
Reason For Study: CHF Procedure This was a 2D Doppler, Color Flow transthoracic echocardiogram. The study was technically difficult. Exam performed portable in patient room. Left Ventricle Normal LV size. Left ventricular systolic function is normal. The estimated ejection fraction is 60 %. Diastolic function is indeterminate. No regional wall motion abnormalities noted. Right Ventricle Normal RV size. Normal systolic function. Atria The left atrium is mildly enlarged. Normal right atrium. No doppler evidence for ASD. Mitral Valve There is mild mitral annular calcification. Extension of the mitral annular calcification onto the base of the posterior mitral valve leaflet. The mitral valve chordae are thickened and/or calcified. Mild (1+) eccentric mitral valve insufficiency. Tricuspid Valve Normal tricuspid valve. Mild tricuspid valve insufficiency. Right ventricular systolic pressure estimated to be 34 mmHg. Aortic Valve Trisinus/trileaflet aortic valve. Mild focal aortic valve calcification. Pulmonic Valve The pulmonic valve is not well visualized. Mild (1+) pulmonic valve insufficiency. Great Vessels Normal sized aortic root. Pericardium/Pleural No pericardial effusion. MMode/2D Measurements & Calculations LVIDd: 5.5 cm IVSd: 1.3 cm Ao root diam: 3.7 cm LVIDs: 3.6 cm LVPWd: 1.2 cm LA dimension: 5.1 cm RVDd: 3.5 cm FS: 34.7 % LAV(MOD-bp): 72.3 ml LVAd ap4: 35.5 cm2 SV(MOD-sp4): 70.0 ml LAV(MOD-bp) Indexed: 35.2 ml/m2 LVLd ap4: 8.4 cm LAV(MOD-sp2): 75.5 ml EDV(MOD-sp4): 124.3 ml LAV(MOD-sp4): 69.3 ml EDV(sp4-el): 126.5 ml LVAs ap4: 20.4 cm2 LVLs ap4: 6.8 cm ESV(MOD-sp4): 54.2 ml ESV(sp4-el): 52.3 ml EF(MOD-sp4): 56.4 % EF(sp4-el): 58.7 % SV(sp4-el): 74.3 ml LA A4 area: 22.1 cm2 RA A4 area: 17.5 cm2 Time Measurements MV dec time: 0.28 sec Doppler Measurements & Calculations MV E max leandro: 79.5 cm/sec MV V2 max: 130.6 cm/sec MV P1/2t max leandro: 106.1 cm/sec MV A max leandro: 111.5 cm/sec MV max P.8 mmHg MV P1/2t: 100.3 msec MV E/A: 0.71 MV V2 mean: 65.7 cm/sec MV mean P.1 mmHg MV dec slope: 310.0 cm/sec2 MV V2 VTI: 33.2 cm MVA(P1/2t): 2.2 cm2 Ao V2 max: 120.6 cm/sec LV V1 max: 116.3 cm/sec PA V2 max: 88.1 cm/sec Ao max P.8 mmHg LV V1 max P.4 mmHg Ao V2 mean: 77.3 cm/sec LV V1 mean P.4 mmHg Ao mean P.8 mmHg LV V1 mean: 84.8 cm/sec Ao V2 VTI: 26.6 cm LV V1 VTI: 27.8 cm TR max leandro: 277.7 cm/sec TR max P.9 mmHg ECHO/Echo Complete Interpretation Summary The study was technically difficult. Left ventricular systolic function is normal. The estimated ejection fraction is 60 %. The left atrium is mildly enlarged. There is mild mitral annular calcification. Extension of the mitral annular calcification onto the base of the posterior mi tral valve leaflet. The mitral valve chordae are thickened and/or calcified. Mild (1+) eccentric mitral valve insufficiency. Mild tricuspid valve insufficiency. Mild focal aortic valve calcification. Mild (1+) pulmonic valve insufficiency. Right ventricular systolic pressure estimated to be 34 mmHg. Diastolic function is indeterminate. Ordering Physician: Rhonda Grayson Referring Physician: Emeka Horn M.D. Performed By: Dalton Perez RCS
[2022-05-15] MEDS: Pantoprazole Sodium 40 MG Tablet PO (12:19)
[2022-05-15] MEDS: Carvedilol 12.5 MG Tablet PO ×2 (12:20→22:28)
[2022-05-15] MEDS: Isosorbide Mononitrate 30 MG Tablet PO (12:20)
[2022-05-15] MEDS: Atorvastatin Calcium 40 MG Tablet PO (12:20)
[2022-05-15] MEDS: hydrALAZINE 50 MG Tablet PO (12:20)
[2022-05-15] MEDS: Enoxaparin 40 MG/0.4 ML Syringe SC (12:20)
[2022-05-15] MEDS: Loratadine 10 MG Tablet PO (12:20)
[2022-05-15 12:50] LABS: Bedside Glucose 135 mg/dL (74-106)
[2022-05-15] MEDS: Furosemide 40 MG/4 ML Vial IV (13:04)
--- NOTE | 2022-05-15 13:20 | CASEMGMT ---
RN MARIAM Face to Face with patient for initial transition planning/care coordination assessment. RN CM introduced self and role at [facility]. Patient lying in bed, alert and oriented. Patient willing to participate in assessment and is able to answer all questions appropriately. Care providers, pharmacy, and demographics verified. Patient wishes to discharge home, will monitor for HHC pending progress with therapy. Patient states he has no further needs or concerns at this time. CM to follow for discharge planning needs that may arise. PCP: K[facility] Specialists: Mat, heel varnisher; Ignacio, workgroup leader; Shawna, urologist Preferred Pharmacy: [facility] Insurance: [employer] Prescription Benefit: yes Living Will/HPOA: yes, [place] Hernandes LNOK: , son Living Arrangements: Patient lives with in a 1.5 story home with bed and bath on first floor. Patient states he is independent at home. Transportation: self, DME/HHC: Patient states he has cane, walker, rollator, scooter, grab bars, and Bipap at home. Patient prefers [facility] for DME. Patient states he has been to TCU in the past. No previous HHC. Disposition Plan: Patient to discharge home with family support and follow-up plans in place. Will monitor for HHC and home oxygen at discharge. Tessa MIRELES, RN, CM
[2022-05-15] MEDS: Tamsulosin HCl 0.4 MG Capsule PO (14:28)
[2022-05-15] MEDS: Fluticasone 0.05% 1 SPRAY NASAL.SRY 2 SPRAY NASAL (14:28)
[2022-05-15] MEDS: hydrALAZINE 50 MG Tablet 100 MG PO ×2 (15:29→22:28)
[2022-05-15] MEDS: Insulin Lispro 100 UNIT/ML INSULN.PEN SC (17:43)
[2022-05-15 17:55] LABS: Bedside Glucose 166 mg/dL (74-106)
[2022-05-15 19:43] LABS: Anion Gap 6 (5-15); BUN 20 mg/dL (7-18); BUN/Creat Ratio 14.2 RATIO (10-20); Calcium,Total 8.8 mg/dL (8.5-10.1); Chloride 102 mmol/L (98-107); Creatinine, Serum 1.41 mg/dL (0.70-1.30); EST Glomerular Filtration Rate 51 mL/min (>60); Est Glom Filt Rate - Afr Amer 62 mL/min (>60); Estimated Creatinine Clearance 40.27 ml/min; Glucose 150 mg/dL (74-106); Potassium 3.7 mmol/L (3.5-5.1); Sodium Level 139 mmol/L (136-145)
[2022-05-15] MEDS: Budesonide Respules 0.5 MG/2 ML AMPUL.NEB. INHALATION (21:40)
[2022-05-15] MEDS: Aspirin 81 MG TAB.CHEW PO (22:28)
[2022-05-15] MEDS: Montelukast 10 MG Tablet PO (22:29)
[2022-05-16] VITALS (10 sets, daily range): BP systolic 130–192; BP diastolic 64–82; PULSE 59–72; RESP 16–20; TEMP 36.2–36.8; O2SAT 94–98
[2022-05-16] MEDS: hydrALAZINE 50 MG Tablet 100 MG PO (05:59)
[2022-05-16 06:09] LABS: Absolute Lymphocyte Count 2.76 X10^3/uL (0.83-4.51); Absolute Neutrophil Count 4.1 X10^3/uL (2.0-7.7); Basophil# 0.02 X10^3/uL; Basophil% 0.3 % (0-1); Eosinophil# 0.13 X10^3/uL; Eosinophils% 1.6 % (0-5); Hematocrit 30.2 % (40-54); Hemoglobin 9.5 g/dL (13.0-16.5); Lymphocyte # 2.76 X10^3/ul (0.83-4.51); Lymphocyte % 34.8 % (19-41); Mean Corp Hgb Conc 31.5 g/dL (32-36); Mean Corpuscular Hgb 27.8 pg (27.0-32.0); Mean Corpuscular Volume 88.3 fL (80-94); Monocyte# 0.94 X10^3/uL; Monocyte% 11.8 % (0-10); NRBC Flagged by Analyzer 0 % (0-5); Neutrophil # 4.06 X10^3/uL (2.7-7.7); Neutrophil % 51.1 % (47-70); Platelet Count 298 K/mm3 (150-450); RBC Distribution Width CV 14.1 % (11.6-14.6); RBC Distribution Width SD 45.1 fl (35.1-43.9); Red Blood Count 3.42 M/mm3 (4.6-6.2); White Blood Count 7.9 K/mm3 (4.4-11.0)
[2022-05-16 06:22] LABS: ALB/GLOB Ratio 0.8 RATIO (0.9-2.4); AST(SGOT) 20 U/L (15-37); Alanine Aminotransfer ALT/SGPT 21 U/L (16-61); Albumin, Serum 2.9 g/dL (3.2-5.0); Alkaline Phosphatase 54 U/L (45-117); Anion Gap 7 (5-15); BUN 20 mg/dL (7-18); BUN/Creat Ratio 14.4 RATIO (10-20); Calcium,Total 8.8 mg/dL (8.5-10.1); Chloride 102 mmol/L (98-107); Creatinine, Serum 1.39 mg/dL (0.70-1.30); EST Glomerular Filtration Rate 52 mL/min (>60); Est Glom Filt Rate - Afr Amer 63 mL/min (>60); Estimated Creatinine Clearance 40.85 ml/min; Globulin 3.7 g/dL (2.2-4.2); Glucose 147 mg/dL (74-106); Magnesium 1.7 mg/dL (1.6-2.6); Phosphorus 3.4 mg/dL (2.5-4.9); Potassium 3.7 mmol/L (3.5-5.1); Protein, Total 6.6 g/dL (6.4-8.2); Sodium Level 138 mmol/L (136-145); Thyroid Stim Hormone (TSH) 2.11 uIU/mL (0.358-3.74)
[2022-05-16] MEDS: Insulin Lispro 100 UNIT/ML INSULN.PEN SC ×2 (06:30→10:48)
[2022-05-16] MEDS: Acetaminophen 500 MG Tablet 1000 MG PO (06:32)
[2022-05-16] MEDS: Budesonide Respules 0.5 MG/2 ML AMPUL.NEB. INHALATION (07:14)
[2022-05-16] MEDS: Albuterol 2.5 MG/3 ML VIAL.NEB. INHALATION (07:15)
[2022-05-16] MEDS: Enoxaparin 40 MG/0.4 ML Syringe SC (08:32)
[2022-05-16] MEDS: Furosemide 40 MG/4 ML Vial IV (08:32)
[2022-05-16] MEDS: Loratadine 10 MG Tablet PO (08:32)
[2022-05-16] MEDS: Isosorbide Mononitrate 30 MG Tablet PO (08:32)
[2022-05-16] MEDS: Carvedilol 12.5 MG Tablet PO (08:32)
[2022-05-16] MEDS: Tamsulosin HCl 0.4 MG Capsule PO (08:32)
[2022-05-16] MEDS: Pantoprazole Sodium 40 MG Tablet PO (08:32)
[2022-05-16] MEDS: Fluticasone 0.05% 1 SPRAY NASAL.SRY 2 SPRAY NASAL (08:37)
--- NOTE | 2022-05-16 10:33 | DS.PCM_ITS ---
Providers Date of Admission: 05/15/22 Date of Discharge: 05/16/22 Primary Care Physician: Dr. Emeka Horn MD Reason For Visit: DECOMPENSATED HFPEF Diagnosis Discharge Diagnosis (1) Acute respiratory failure with hypoxia: Status: Acute Code(s): J96.01 - Acute respiratory failure with hypoxia (2) Pulmonary edema: Status: Acute Code(s): J81.1 - Chronic pulmonary edema (3) Elevated brain natriuretic peptide (BNP) level: Status: Acute Code(s): R79.89 - Other specified abnormal findings of blood chemistry (4) Chronic constipation: Status: Chronic Code(s): K59.09 - Other constipation (5) Hypertensive emergency: Status: Acute Code(s): I16.1 - Hypertensive emergency Plan Acute hypoxic respiratory failure secondary to acute decompensated heart failure with preserved ejection fraction -Suspect diastolic in nature with markedly elevated blood pressures on presentation -Patient hypoxic and tachypneic on presentation requiring supplemental oxygen -Sats on presentation to the emergency department were 86 to 87% on room air -Patient is not O2 dependent baseline -Continue supplemental oxygen and wean as tolerated -Lasix 40 mg IV push twice daily -Continue home antihypertensives and adjust as needed -As needed hydralazine for systolic pressure greater than 160 -Would like to at least see his blood pressures between 130 and 140 on his consistent basis prior to discharge -Daily weights -Strict I's and O's -Cardiac diet -Lower extremity Robbie bandages -Monitor on telemetry -Repeat echocardiogram--> last echo was 1 and half years ago Hypertensive emergency with history of hypertension -Marked blood pressure elevations causing heart failure -Restart home medications -As needed hydralazine -Hold home hydrochlorothiazide given Lasix dosing -May need adjustments or additional antihypertensives for improved control Constipation -Patient states he took MiraLAX last evening and drink prune juice this morning -As needed senna is available -We will reevaluate tomorrow and if no bowel movement may redose MiraLAX DM-2 -Hold home metformin -Sliding scale insulin -Accu-Cheks before meals and at bedtime CKD stage IIIb -Current serum creatinine is 1.44 next-Baseline serum creatinine is 1.2-1.5 -Continue to monitor Hyperlipidemia -Continue home atorvastatin COPD -Continue home inhalers both as needed and scheduled BPH -Status post TURP in March -Continue home Flomax GERD -Continue home PPI Restless leg syndrome -Continue home ropinirole Seasonal allergies -Continue home Singulair -Continue home nasal spray Vitamin D deficiency -Hold cholecalciferol and restarted on discharge DVT prophylaxis -Lovenox 40 mg daily CODE STATUS -DNR CCA with no intubation as confirmed in the emergency department on admission Medications at Discharge Home Medications aspirin 81 mg chewable tablet 81 mg PO QHS heart health 03/28/14 pantoprazole 40 mg tablet,delayed release 40 mg PO DAILY reflux 03/28/14 ammonium lactate 12 % lotion 1 applic topical QD-BID PRN dry skin 02/06/18 triamcinolone acetonide 55 mcg nasal spray aerosol (Nasacort) 2 spray intranasal DAILY allergies 09/04/18 handicap placcard #1 ea 09/28/19 ascorbate calcium (vitamin C) 500 mg tablet 500 mg PO DAILY Bone strength 05/03/20 coenzyme Q10 100 mg capsule (Co Q-10) 100 mg PO DAILY 05/03/20 cholecalciferol (vitamin D3) 100 mcg (4,000 unit) tablet 100 mcg PO DAILY 11/03/20 spacer #1 ea 01/12/21 nitroglycerin 0.4 mg sublingual tablet (Nitrostat) 0.4 mg sublingual Q5-15M PRN chest pain #25 tabs 11/01/21 albuterol sulfate 90 mcg/actuation aerosol inhaler (Ventolin HFA) 2 inh inhalation Q4H PRN shortness of breath or wheezing #18 grams 11/27/21 metformin 850 mg tablet 500 mg PO BID Blood Glucose 01/25/22 atorvastatin 40 mg tablet 40 mg PO QODAY cholesterol #45 tabs 02/20/22 ipratropium 0.5 mg-albuterol 3 mg (2.5 mg base)/3 mL nebulization soln 3 ml inhalation 4X/DAY PRN PRN shortness of breath or wheezing #90 mL 02/21/22 ipratropium bromide 42 mcg (0.06 %) nasal spray 2 spray intranasal TID-QID PRN allergy symptoms #15 mL 02/21/22 budesonide-formoterol HFA 160 mcg-4.5 mcg/actuation aerosol inhaler (Symbicort) 2 puff inhalation BID Respitory 03/09/22 carvedilol 12.5 mg tablet 12.5 mg PO BID B/P 03/09/22 hydrochlorothiazide 25 mg tablet 25 mg PO DAILY Diuretic 03/09/22 loratadine 10 mg capsule 10 mg PO QDAY Allergies 03/09/22 montelukast 10 mg tablet 10 mg PO QHS Respiratory 03/09/22 acetaminophen 500 mg tablet 1,000 mg PO Q6H PRN PRN Pain Score 1-10 #0 tabs 03/19/22 ropinirole 0.5 mg tablet 0.5 mg PO TID 04/22/22 tamsulosin 0.4 mg capsule (Flomax) 0.4 mg PO DAILY #30 caps 04/22/22 hydralazine 50 mg tablet 100 mg PO TID #180 tabs 05/16/22 isosorbide mononitrate 30 mg tablet,extended release 24 hr 30 mg PO BID #60 tabs 05/16/22 Hospital Course Operations None Procedures 2-D Echocardiogram and EKG Summary of Care Provided Minutes Spent on Discharge: 37 Hospital Course: Mr. Hernandes is an 86-year-old white male who presented to the emergency department on 05/15/2022 with a chief complaint of shortness of breath. On presentation he reported that the shortness of breath with acute in onset and started about midnight the evening prior. He reported that he gradually noticed some worsening over the past day or 2 prior to admission but when he got out of bed on the morning of admission his shortness of breath was severe enough for him to present to the emergency department. He reported a cough of some clear sputum that started that day as well. He denied fever or chills. He at baseline he is not oxygen dependent however upon presentation to the emergency department his oxygen saturations were 86 to 87% on room air and he was placed on supplemental oxygen when with improvement of his oxygenation. He complained of orthopnea but no paroxysmal nocturnal dyspnea and reported that his legs were swollen but this is more of a chronic issue than acute. He reported that his blood pressure has been somewhat labile and with when he checks it in the evening is anywhere from 140-190 systolic. At his last cardiology appointment on 05/02/2022 his medi cations were changed at which time his nifedipine was discontinued and his hydralazine was increased from 50 twice daily to 50 3 times daily.? He indicated at admission that he felt better when his systolic pressure was greater than 130 as he was lightheaded if it is lower than this. The patient had yet not taken his blood pressure medication on the morning of admission. Upon presentation the emergency department his temperature was 97.7, heart rate 83, blood pressure 149/117, respiratory rate was 31 and has improved to 20, and oxygen saturation was 86 to 87% on room air and improved to 98% on 5 L nasal cannula.? His CBC is unremarkable except for chronic stable normocytic anemia with a hemoglobin in the 10-11 range, which is his baseline.? His BMP shows normal electrolytes and a stable CKD stage IIIb with a baseline serum creatinine of 1.2-1.5.? Current serum creatinine is 1.44.? Serum glucose was 157.? Troponin was 38 which is stable compared to previous.? His BNP was elevated at 674 which is markedly elevated compared to his BNP obtained on 01/25/2022 at which time it was 82.8.? H is chest x-ray shows increased interstitial infiltrates suspicious for pulmonary edema and his EKG is normal sinus rhythm with a prolonged WI interval and first- degree heart block but no ST-T wave changes consistent with acute ischemia. It was suspected that he had acute pulmonary edema related to his hypertension and in the emergency department he was treated with IV hydralazine as well as 40 mg of IV Lasix x1 dose. We admitted him to the PCU and with he was monitor on telemetry. He was given his blood pressure medications yet his blood pressure remained elevated and we therefore increase his hydralazine from 50 mg 3 times daily to 100 mg 3 times daily. This is improved his pressure but he was still in the 150s to 160 systolic so we therefore increased his isosorbide from 30 mg daily to 30 mg twice daily. His blood pressures were much improved prior to discharge and on repeat the a.m. of discharge after his medications were dosed his blood pressure was 130/64. The patient was asymptomatic with regards to lightheadedness at this time. We did obtain an echocardiogram given his presentation and acute congestive heart failure and this showed an EF of 60% with mild left atrial enlargement, mild eccentric mitral valve insufficiency, mild tricuspid valve insufficiency, and mild pulmonic valve insufficiency with a right ventricular systolic pressure of 34 mmHg. The patient was aggressively diuresed with 40 mg of IV Lasix twice daily and was negative approximately 1.5 L for the hospitalization and he lost about a kilogram of weight. As noted above I suspect his hypertension predisposed him to his acute decompensated HFpEF secondary to stiffened ventricle. He was able to be discharged home in stable condition on 05/13/2022. Prior to discharge we did an ambulatory pulse ox on room air. His oxygen saturation at rest was 98% and with ambulation he was 96%. He was discharged home with prescriptions for his hydralazine and Imdur dose changes and to follow-up appointment was made with his primary cardiology [employer] for 05/22/2022 to follow-up on his blood pressure after discharge. He was discharged home in stable condition on 05/16/2022. The patient did improve more quickly than anticipated on admission. Discharge diagnoses: Acute hypoxic respiratory failure secondary to acute decompensated heart failure with preserved ejection fraction-resolved Acute decompensated HFpEF-resolved Hypertensive emergency Essential hypertension Constipation DM-2 CKD stage IIIb Hyperlipidemia COPD BPH GERD Restless leg syndrome Seasonal allergies Vitamin D deficiency Physical Exam Narrative Patient reports that he is feeling much better today. He is no longer requiring supplemental oxygen. Blood pressures are overall improved. Const alert, oriented x3, no apparent distress, no limitations, healthy appearing and well nourished Constitutional Narrative: Obese elderly white male sitting up in a chair at the bedside, appears comfortable nontoxic, patient is currently on room air General Appearance: cooperative, comfortable, well kempt and well developed Orientation / Consciousness: awake Exam Limitations: no limitations Nutritional Appearance: overweight HEENT normocephalic, head/scalp atraumatic and moist oral mucous membranes HEENT Narrative: Moderate hearing loss, dentures in place, Mallampati 2 Eyes PERRL, EOMs intact bilaterally and conjunctivae normal Eyes Narrative: No scleral icterus Neck no lymphadenopathy, supple, no JVD and no carotid bruits Neck Narrative: Trachea midline, no thyroid enlargement Resp normal respiratory effort, no retractions, no use of accessory muscles and clear to auscultation bilaterally Resp Narrative: Adventitious sounds have resolved Auscultation: Negative for crackles, rales, rhonchi or wheezes Cardio regular rate, regular rhythm, S1 normal heart sound, S2 normal heart sound, no murmurs, no rub, no gallops, no clicks and no JVD GI normal to inspection, nondistended, normoactive bowel sounds, soft to palpation, non-tender and non-distended; Negative for hepatosplenomegaly Extremity normal to inspection and no clubbing, cyanosis or edema Skin no rashes or lesions noted, no wounds, skin turgor normal and no jaundice Neuro oriented x3, CN's II-XII intact bilaterally, moves all extremities and no focal motor deficits Neuro Narrative: Very mild generalized weakness proximal greater than distal but no focal deficits Sensorium / Orientation: awake, alert, oriented to person, oriented to place and oriented to time Speech: speech normal Psych affect normal Psych Narrative: Pleasant and appropriately interactive Weight / BMI Weight Weight: 86.6 kg Body Mass Index (BMI) 27.4 ABG / Lab / Microbiology Data Result Diagrams: 05/16/22 04:46 05/16/22 04:46 Laboratory: Laboratory Results - last 24 hr 05/15/22 12:18: POC Glucose 135 H 05/15/22 17:35: POC Glucose 166 H 05/15/22 19:10: Sodium 139, Potassium 3.7, Chloride 102, Carbon Dioxide 31.0, Anion Gap 6, BUN 20 H, Creatinine 1.41 H, Estim Creat Clear Calc 40.27, Est GFR (MDRD) Af Amer 62, Est GFR (MDRD) Non-Af 51 L, BUN/Creatinine Ratio 14.2, Glucose 150 H, Calcium 8.8 05/16/22 04:46: WBC 7.9, RBC 3.42 L, Hgb 9.5 L, Hct 30.2 L, MCV 88.3, MCH 27.8, MCHC 31.5 L, RDW Std Deviation 45.1 H, RDW Coeff of Justin 14.1, Plt Count 298, MPV 11.0, Immature Gran % (Auto) 0.400, Neut % (Auto) 51.1, Lymph % (Auto) 34.8, [place] % (Auto) 11.8 H, Eos % (Auto) 1.6, Baso % (Auto) 0.3, Absolute Neuts (auto) 4.1, Absolute Lymphs (auto) 2.76, Nucleated RBC % 0 05/16/22 04:46: Sodium 138, Potassium 3.7, Chloride 102, Carbon Dioxide 29.0, Anion Gap 7, BUN 20 H, Creatinine 1.39 H, Estim Creat Clear Calc 40.85, Est GFR (MDRD) Af Amer 63, Est GFR (MDRD) Non-Af 52 L, BUN/Creatinine Ratio 14.4, Glucose 147 H, Calcium 8.8, Phosphorus 3.4, Magnesium 1.7, Total Bilirubin 0.50, AST 20, ALT 21, Alkaline Phosphatase 54, Total Protein 6.6, Albumin 2.9 L, Globulin 3.7, Albumin/Globulin Ratio 0.8 L, TSH 2.11 Microbiology: Microbiology 05/15/22 07:10 Nasal Secretion SARS-CoV-2 Antigen (Rapid) - Final Radiography Diagnostic Testing: Radiology Impression Echocardiogram 05/15/22 11:07 Interpretation Summary The study was technically difficult. Left ventricular systolic function is normal. The estimated ejection fraction is 60 %. The left atrium is mildly enlarged. There is mild mitral annular calcification. Extension of the mitral annular calcification onto the base of the posterior mitral valve leaflet. The mitral valve chordae are thickened and/or calcified. Mild (1+) eccentric mitral valve insufficiency. Mild tricuspid valve insufficiency. Mild focal aortic valve calcification. Mild (1+) pulmonic valve insufficiency. Right ventricular systolic pressure estimated to be 34 mmHg. Diastolic function is indeterminate. Ordering Physician: Rhonda Grayson Referring Physician: Emeka Horn M.D. Performed By: Dalton Perez RCS D/C Instructions Discharge Diet: Low fat / Low cholesterol and 2000 mg Sodium Diet Discharge Activity: Return to Normal Activity Meaningful Use Info Meaningful Use Diagnoses (Choose all that apply): None applicable Discharge Plan Admission Admit Date/Time: 05/15/22 09:12 Primary Reason for Your Visit: Shortness of Breath Attending Provider: Rhonda Grayson Primary Care Provider: Emeka Horn Discharge Orders/Prescriptions Prescriptions: New isosorbide mononitrate 30 mg Tablet Extended Release 24 Hr 30 mg PO BID Qty: 60 0RF hydralazine 50 mg Tablet 100 mg PO TID Qty: 180 0RF Continued ammonium lactate 12 % lotion 1 applic TOPICAL QD-BID PRN (Reason: dry skin ) triamcinolone acetonide [Nasacort] 55 mcg aerosol,spray 2 spray INTRANASAL DAILY (DME) handicap placcard Qty: 1 0RF Rx Instructions: Lifetime: debility coenzyme Q10 [Co Q-10] 100 mg capsule 100 mg PO DAILY ascorbate calcium (vitamin C) 500 mg tablet 500 mg PO DAILY cholecalciferol (vitamin D3) 100 mcg (4,000 unit) tablet 100 mcg (4,000 unit) tablet 100 mcg PO DAILY (DME) spacer See Rx Instructions .ROUTE .MEDSUPPLY Qty: 1 0RF Rx Instructions: As directed nitroglycerin [Nitrostat] 0.4 mg tablet, sublingual 0.4 mg SUBLINGUAL Q5-15M PRN (Reason: chest pain) Qty: 25 2RF ipratropium-albuterol 0.5 mg-3 mg(2.5 mg base)/3 mL solution for nebulization 3 ml inhalation 4X/DAY PRN PRN (Reason: shortness of breath or wheezing) Qty: 90 6RF ipratropium bromide 42 mcg (0.06 %) spray,non-aerosol 2 spray INTRANASAL TID-QID PRN (Reason: allergy symptoms) Qty: 15 6RF Rx Instructions: nasal drip - administer into each nostril; wait 30 seconds between sprays metformin 850 mg tablet 500 mg PO BID pantoprazole 40 MG tablet 40 mg PO DAILY Label Comments: acid reflux aspirin 81 MG tablet,chewable 81 mg PO QHS Label Comments: antiplatelet carvedilol 12.5 mg tablet 12.5 mg PO BID montelukast 10 mg tablet 10 mg PO QHS hydrochlorothiazide 25 mg tablet 25 mg PO DAILY budesonide-formoterol [Symbicort] 160-4.5 mcg/actuation HFA aerosol inhaler 2 puff INHALATION BID Rx Instructions: administer with spacer, rinse mouth after each use loratadine 10 mg capsule 10 mg PO QDAY Rx Instructions: allergies acetaminophen 500 mg Tablet 1,000 mg PO Q6H PRN PRN (Reason: Pain Score 1-10) Qty: 0 0RF ropinirole 0.5 mg Tablet 0.5 mg PO TID tamsulosin [Flomax] 0.4 mg capsule 0.4 mg PO DAILY Qty: 30 0RF albuterol sulfate [Ventolin HFA] 90 mcg/actuation HFA aerosol inhaler 2 inh INHALATION Q4H PRN (Reason: shortness of breath or wheezing) Qty: 18 6RF atorvastatin 40 mg tablet 40 mg PO QODAY Qty: 45 3RF Discontinued isosorbide mononitrate 30 MG tablet 30 mg PO DAILY Label Comments: heart hydralazine 25 mg tablet 50 mg PO TID Referrals / Follow Up: Emeka Horn MD [Primary Care Provider] - See Referral Note (as needed) Marguerite Jennings NP, [employer] [Nurse Practitioner] - 05/22/22 9:00 am Disposition Disposition (needs filled in before D/C Order can be placed): Home, Self Care Charges/Coding Visit Charges Inpatient E&M: 92777 Disch Hosp
--- NOTE | 2022-05-16 10:40 | CASEMGMT ---
Pt does not qualify for home oxygen for discharge. Pt states no concerns with going home at discharge and decilnes need for any further therapy. Pt voices no further questions/concerns/needs. Keith MACIAS CM
[2022-05-16 11:16] LABS: Bedside Glucose 223 mg/dL (74-106)
[2022-05-16 22:41] LABS: Bedside Glucose 173 mg/dL (74-106)
== END 2022-05-16 13:22 | disposition home or self-care (01) | DRG 291 ==
LOC: ED 08:59 → PCU 09:49
PROVIDERS: Admitting Provider Internal Medicine; Emergency Provider Emergency Medicine; PCP Internal Medicine; Visit Provider Internal Medicine
DX: I13.0 Hypertensive heart and chronic kidney disease with heart failure and stage 1 through stage 4 chronic kidney disease, or unspecified chronic kidney disease (principal); J96.01 Acute respiratory failure with hypoxia; I50.33 Acute on chronic diastolic (congestive) heart failure; N18.4 Chronic kidney disease, stage 4 (severe); J81.1 Chronic pulmonary edema; I16.1 Hypertensive emergency; E11.22 Type 2 diabetes mellitus with diabetic chronic kidney disease; J44.9 Chronic obstructive pulmonary disease, unspecified; N18.32 Chronic kidney disease, stage 3b; E78.00 Pure hypercholesterolemia, unspecified; E78.5 Hyperlipidemia, unspecified; I25.10 Atherosclerotic heart disease of native coronary artery without angina pectoris; K59.09 Other constipation; Z79.51 Long term (current) use of inhaled steroids; Z87.891 Personal history of nicotine dependence; N40.0 Benign prostatic hyperplasia without lower urinary tract symptoms
CPT/HCPCS: 36415; 71045; 80048; 80053; 82962; 83735; 83880; 84100; 84443; 84484; 85025; 87811; 93005; 93306; 94640; 99251; 99285; A4216; G0463; J1940

== ENCOUNTER 2022-05-22 08:51 | Emergency (ER) | payer MEDICARE, SELFPAY ==
[2022-05-22 08:55] VITALS: BP 187/88; PULSE 92; RESP 28; TEMP 36.3; O2SAT 92; BMI 28.6
--- NOTE | 2022-05-22 09:11 | EKG12_ITS ---
Test Reason : SHORT OF BREATH Blood Pressure : / mmHG Vent. Rate : 063 BPM Atrial Rate : 063 BPM P-R Int : 222 ms QRS Dur : 090 ms QT Int : 466 ms P-R-T Axes : 055 050 001 degrees QTc Int : 476 ms Sinus rhythm with 1st degree A-V block with Premature supraventricular complexes Otherwise normal ECG Confirmed by RIA SMITH, VICTORIANO ([id number]), design editor LASHANDA GARNETT ([id number]) on 05/24/2022 10:03:09 AM Referred By: [place] Confirmed By:VICTORIANO ROLLINS MD
--- NOTE | 2022-05-22 09:12 | EDS_ITS ---
HPI History of Present Illness Chief Complaint: Shortness of Breath Narrative Narrative: 86-year-old male recently admitted for fluid on the lungs presents with shortness of breath and dyspnea on exertion since this morning. He states he was unable to sleep well last night because of orthopnea. He states that while he was hospitalized he was on Lasix but is no longer taking this. He does not wear oxygen at home. He quit smoking in 2007. He denies any chest pain but states that he went to the bathroom and felt very short of breath. He has an occasional cough. He denies any increased swelling of his legs, no other symptoms. [facility] Medical History Abdominal aortic aneurysm (AAA) Acute cystitis with hematuria Ambulates with cane Anemia Aortic aneurysm Arthritis Asthma Atherosclerotic heart disease of [place] coronary artery without angina pectoris Back pain BiPAP (biphasic positive airway pressure) dependence Cancer Cardiology follow-up encounter Carotid bruit Chest pain Chronic cough COPD (chronic obstructive pulmonary disease) Daytime hypersomnia DDD (degenerative disc disease), lumbar Diabetes DM2 (diabetes mellitus, type 2) Dyslipidemia Easy bruising Essential (primary) hypertension Former smoker Gastric reflux High cholesterol History of echocardiogram History of edema History of heart attack History of hiatal hernia History of irregular heartbeat History of pain when walking History of renal disease History of steroid therapy History of stress test HLD (hyperlipidemia) Hoarseness Hypertension Injury of back Kidney stone Leg cramps MARIXA (obstructive sleep apnea) Overweight Patellar bursitis of right knee Peripheral vascular disease of extremity with claudication Pre-syncope PVD (peripheral vascular disease) Rectus sheath hematoma Recurrent urinary tract infection Restless legs Restless legs syndrome Seasonal allergies Shortness of breath on exertion Sleep apnea Somatic dysfunction of pelvic region Stage 3b chronic kidney disease Walker as ambulation aid Wears dentures Wears glasses Wears hearing aid Home Medications aspirin 81 mg chewable tablet 81 mg PO QHS heart health 03/28/14 [History Last Taken 02/27/22] pantoprazole 40 mg tablet,delayed release 40 mg PO DAILY reflux 03/28/14 [History Last Taken 03/09/22] ammonium lactate 12 % lotion 1 applic topical QD-BID PRN dry skin 02/06/18 [History Last Taken Unknown] triamcinolone acetonide 55 mcg nasal spray aerosol (Nasacort) 2 spray intranasal DAILY allergies 09/04/18 [History Last Taken 03/09/22] handicap placcard #1 ea 09/28/19 [Rx Last Taken Unknown] ascorbate calcium (vitamin C) 500 mg tablet 500 mg PO DAILY Bone strength 05/03/20 [History Last Taken 03/09/22] coenzyme Q10 100 mg capsule (Co Q-10) 100 mg PO DAILY 05/03/20 [History Last Taken Unknown] cholecalciferol (vitamin D3) 100 mcg (4,000 unit) tablet 100 mcg PO DAILY 11/03/20 [History Last Taken Unknown] spacer #1 ea 01/12/21 [Rx Last Taken Unknown] nitroglycerin 0.4 mg sublingual tablet (Nitrostat) 0.4 mg sublingual Q5-15M PRN chest pain #25 tabs 11/01/21 [Rx Last Taken Unknown] albuterol sulfate 90 mcg/actuation aerosol inhaler (Ventolin HFA) 2 inh inhalation Q4H PRN shortness of breath or wheezing #18 grams 11/27/21 [Rx Last Taken Unknown] metformin 850 mg tablet 500 mg PO BID Blood Glucose 01/25/22 [History Last Taken 03/09/22] atorvastatin 40 mg tablet 40 mg PO QODAY cholesterol #45 tabs 02/20/22 [Rx Last Taken 03/08/22] ipratropium 0.5 mg-albuterol 3 mg (2.5 mg base)/3 mL nebulization soln 3 ml inhalation 4X/DAY PRN PRN shortness of breath or wheezing #90 mL 02/21/22 [Rx Last Taken 03/09/22] ipratropium bromide 42 mcg (0.06 %) nasal spray 2 spray intranasal TID-QID PRN allergy symptoms #15 mL 02/21/22 [Rx Last Taken Unknown] budesonide-formoterol HFA 160 mcg-4.5 mcg/actuation aerosol inhaler (Symbicort) 2 puff inhalation BID Respitory 03/09/22 [History Last Taken 03/06/22] carvedilol 12.5 mg tablet 12.5 mg PO BID B/P 03/09/22 [History Last Taken 03/09/22] hydrochlorothiazide 25 mg tablet 25 mg PO DAILY Diuretic 03/09/22 [History Last Taken 03/09/22] loratadine 10 mg capsule 10 mg PO QDAY Allergies 03/09/22 [History Last Taken 03/09/22] montelukast 10 mg tablet 10 mg PO QHS Respiratory 03/09/22 [History Last Taken 03/08/22] acetaminophen 500 mg tablet 1,000 mg PO Q6H PRN PRN Pain Score 1-10 #0 tabs 03/19/22 [Rx Last Taken Unknown] ropinirole 0.5 mg tablet 0.5 mg PO TID 04/22/22 [History Last Taken Unknown] tamsulosin 0.4 mg capsule (Flomax) 0.4 mg PO DAILY #30 caps 04/22/22 [Rx Last Taken Unknown] hydralazine 50 mg tablet 100 mg PO TID #180 tabs 05/16/22 [Rx Last Taken Unknown] isosorbide mononitrate 30 mg tablet,extended release 24 hr 30 mg PO DAILY 05/22/22 [History Last Taken Unknown] Allergy/AdvReac Type Severity Reaction Status Date / Time cilostazol [From Pletal] Allergy Unknown Verified 05/22/22 08:59 felodipine Allergy Hives Verified 05/22/22 08:59 levofloxacin Allergy Hives Verified 05/22/22 08:59 Sulfa (Sulfonamide Allergy Unknown Verified 05/22/22 08:59 Antibiotics) Family History Father Diabetes Cancer Prostate cancer Surgical History H/O aortic aneurysm repair (11/1998) History of coronary artery stent placement (02/17/08) History of endarterectomy (07/2018) History of hernia repair History of left heart catheterization (03/2014) History of transurethral resection of prostate History of vascular surgery (08/2018) Social History household members: spouse Smoking Status: Former smoker how long ago did patient quit smokin years ago alcohol intake: current alcohol intake frequency: holidays/special occasions only details: hx of alcohol abuse substance use type: does not use caffeine: No what type of physical activity do you participate in: other details: Nustep frequency: 5-6 times per week duration: 15-30 minutes/day seatbelt use: always do you feel safe at home: Yes ROS ROS ED ROS Narrative Constitutional: No fever, no chills. HEENT: No sore throat. No neck pain. No loss of vision. No rhinorrhea. Cardiovascular: No chest pain. No palpitations. No pedal edema. Respiratory: Occasional cough, positive orthopnea, dyspnea on exertion, and shortness of breath. Abdominal: No abdominal pain. No nausea. No vomiting. Genitourinary: No dysuria. No hematuria. Musculoskeletal: No myalgias. No arthralgias. Neurologic: No headaches. No dizziness. No lightheadedness. Skin: No rash. No change in color. Psychiatric: No depression. No anxiety. EXAM Physical Exam Narrative Exam Narrative: Afebrile. Vital signs noted. HEENT: Normocephalic. Atraumatic. PERRL, EOMI. Neck soft and supple. No point tenderness or step off. Cardiovascular: Regular rate and rhythm. No murmurs, rubs, or gallops appreciated. Respiratory: No tachypnea. Expiratory wheezing bilateral bases. Gastrointestinal: Abdomen soft, nontender, with normoactive bowel sounds. No rebound or guarding. Neurological: Awake. Alert. Nonfocal, nonlateralizing. Skin: No rash. Normal color. No pallor. Musculoskeletal: Trace symmetric bilateral pedal edema. Full range of motion extremities. Const Vital Signs: 05/22/22 08:55 05/22/22 09:42 05/22/22 10:12 Temperature 97.4 F L Temperature Source Temporal Pulse Rate 92 63 58 L Respiratory Rate 28 H 24 H 16 Respiratory Effort Respiratory Depth Respiratory Pattern Normal Blood Pressure 187/88 H 167/75 H Blood Pressure Mean 121 105 Pulse Ox 92 94 Oxygen Delivery Method Room Air Nasal Cannula Oxygen Flow Rate (L/min) 2 05/22/22 10:12 05/22/22 12:48 Temperature Temperature Source Pulse Rate 56 L Respiratory Rate 22 H Respiratory Effort Short of Breath Respiratory Depth Normal Respiratory Pattern Normal Blood Pressure 179/72 H Blood Pressure Mean 107 Pulse Ox 92 Oxygen Delivery Method Room Air Oxygen Flow Rate (L/min) MDM MDM MDM Narrative Medical decision making narrative: In the differential diagnosis is COPD exacerbation versus CHF versus combination. Comprehensive work-up was pursued. He was administered an ipratropium albuterol aerosolized treatment. Basic laboratory work and chest x- ray will be obtained. He has a normal white count of 9.2, hemoglobin stable at 9.7, hematocrit 31.5. Platelet count normal at 283. Electrolyte panel shows creatinine 1.40 with BUN of 19. Glucose appropriately elevated at 142 with a normal anion gap of 6. He has a slightly elevated BNP at 432, it has been as high as 600 in the past. He was administered Lasix 40 mg intravenously and has diuresed. High-sensitivity troponin 46. EKG interpreted by myself demonstrates normal sinus rhythm at 63 bpm without ectopy except for occasional supraventricular complexes that are premature, no STEMI. Chest x-ray interpreted by myself shows slight increase in his interstitial markings, but no significant change from previous. I do feel that he may be having a combination of COPD exacerbation with CHF. I will refrain from writing him a prescription for Lasix until he is seen by his mailroom manager. Additionally, he states that he has DuoNeb aerosolized or treatments at home that he is using 3 times a day but is supposed to be using 4 times a day. He will follow-up with his appraisal coordinator. Additionally, he was told by his appraisal coordinator that he did not need prednisone in the past. I feel he can be discharged safely home with follow-up. He was able to ambulate in the ED and did not have significant drop in his pulse ox. Return instructions to the emergency department were reviewed. Disposition is discharged home in stable condition. Lab Data Attestation: I reviewed the patient's lab results. Labs: Laboratory Results - last 24 hr 05/22/22 05/22/22 05/22/22 10:10 10:10 10:10 WBC 9.2 RBC 3.57 L Hgb 9.7 L Hct 31.5 L MCV 88.2 MCH 27.2 MCHC 30.8 L RDW Std Deviation 45.5 H RDW Coeff of Justin 14.1 Plt Count 283 MPV 10.9 Immature Gran % (Auto) 0.700 Neut % (Auto) 66.6 Lymph % (Auto) 22.3 [place] % (Auto) 8.1 Eos % (Auto) 2.0 Baso % (Auto) 0.3 Absolute Neuts (auto) 6.1 Absolute Lymphs (auto) 2.04 Nucleated RBC % 0 Sodium 137 Potassium 4.2 Chloride 104 Carbon Dioxide 27.0 Anion Gap 6 BUN 19 H Creatinine 1.40 H Estim Creat Clear Calc 40.56 Est GFR (MDRD) Af Amer 62 Est GFR (MDRD) Non-Af 51 L BUN/Creatinine Ratio 13.6 Glucose 142 H Calcium 8.9 Total Bilirubin 0.40 AST 25 ALT 28 Alkaline Phosphatase 60 Troponin I High Sens 46 B-Natriuretic Peptide 432.4 H Total Protein 7.1 Albumin 3.1 L Globulin 4.0 Albumin/Globulin Ratio 0.8 L Radiography Diagnostic Testing: Clinical Impression(s) from Imaging Studies Chest X-Ray 05/22/22 10:14 IMPRESSION: Prominent interstitial lung markings demonstrate no significant change in comparison to the prior study. Electronically Signed: Joce Guzman MD at 10:34 EDT , Discharge Plan Triage Chief Complaint: Shortness of Breath ED Provider: Luis Fernando Klein Dx/Rx/DC Orders Clinical Impression: ALMEIDA (dyspnea on exertion), COPD (chronic obstructive pulmonary disease), CHF (congestive heart failure) Instructions: ED Heart Failure, Congestive (CHF), ED COPD Flare, ED Dyspnea Prescriptions: No Action ammonium lactate 12 % lotion 1 applic TOPICAL QD-BID PRN (Reason: dry skin ) triamcinolone acetonide [Nasacort] 55 mcg aerosol,spray 2 spray INTRANASAL DAILY (DME) handicap placcard Qty: 1 0RF Rx Instructions: Lifetime: debility coenzyme Q10 [Co Q-10] 100 mg capsule 100 mg PO DAILY ascorbate calcium (vitamin C) 500 mg tablet 500 mg PO DAILY cholecalciferol (vitamin D3) 100 mcg (4,000 unit) tablet 100 mcg (4,000 unit) tablet 100 mcg PO DAILY (DME) spacer See Rx Instructions .ROUTE .MEDSUPPLY Qty: 1 0RF Rx Instructions: As directed nitroglycerin [Nitrostat] 0.4 mg tablet, sublingual 0.4 mg SUBLINGUAL Q5-15M PRN (Reason: chest pain) Qty: 25 2RF ipratropium-albuterol 0.5 mg-3 mg(2.5 mg base)/3 mL solution for nebulization 3 ml inhalation 4X/DAY PRN PRN (Reason: shortness of breath or wheezing) Qty: 90 6RF ipratropium bromide 42 mcg (0.06 %) spray,non-aerosol 2 spray INTRANASAL TID-QID PRN (Reason: allergy symptoms) Qty: 15 6RF Rx Instructions: nasal drip - administer into each nostril; wait 30 seconds between sprays metformin 850 mg tablet 500 mg PO BID pantoprazole 40 MG tablet 40 mg PO DAILY Label Comments: acid reflux aspirin 81 MG tablet,chewable 81 mg PO QHS Label Comments: antiplatelet carvedilol 12.5 mg tablet 12.5 mg PO BID montelukast 10 mg tablet 10 mg PO QHS hydrochlorothiazide 25 mg tablet 25 mg PO DAILY budesonide-formoterol [Symbicort] 160-4.5 mcg/actuation HFA aerosol inhaler 2 puff INHALATION BID Rx Instructions: administer with spacer, rinse mouth after each use loratadine 10 mg capsule 10 mg PO QDAY Rx Instructions: allergies acetaminophen 500 mg Tablet 1,000 mg PO Q6H PRN PRN (Reason: Pain Score 1-10) Qty: 0 0RF ropinirole 0.5 mg Tablet 0.5 mg PO TID tamsulosin [Flomax] 0.4 mg capsule 0.4 mg PO DAILY Qty: 30 0RF hydralazine 50 mg Tablet 100 mg PO TID Qty: 180 0RF isosorbide mononitrate 30 mg tablet extended release 24 hr 30 mg PO DAILY albuterol sulfate [Ventolin HFA] 90 mcg/actuation HFA aerosol inhaler 2 inh INHALATION Q4H PRN (Reason: shortness of breath or wheezing) Qty: 18 6RF atorvastatin 40 mg tablet 40 mg PO QODAY Qty: 45 3RF Primary Care Provider: Emeka Horn Referrals: Emeka Horn MD [Primary Care Provider] - Activity Restrictions/Additional Instructions: Use your ipratropium-albuterol nebulizer treatments 4 times a day as instructed previously. Follow-up with Dr. Rivero as soon as possible. Follow-up with your mailroom manager, Dr. Pierre, as soon as possible and keep your scheduled appointment for next week. Disposition Disposition: Home, Self Care
[2022-05-22] MEDS: Ipratropium/Albuterol Sulfate 3 ML AMPUL.NEB INHALATION (09:40)
[2022-05-22 09:42] VITALS: PULSE 63; RESP 24
[2022-05-22 10:12] VITALS: BP 167/75; PULSE 58; RESP 16; O2SAT 94
--- NOTE | 2022-05-22 10:14 | RAD_ITS ---
INDICATION: Shortness of Breath EXAMINATION/TECHNIQUE: X-RAY - XR Chest 1 View COMPARISON: 05/15/2022. FINDINGS: LINES/DEVICES: Internal fixation of the distal right clavicle is visualized. . LUNGS: Prominence of the bronchovascular and interstitial lung markings is visualized bilaterally peribronchial cuffing bilateral hilar prominence is seen. Linear streaky opacities visualized in bilateral lung lynn, no evidence of focal consolidations is seen. Findings demonstrate no significant progression in comparison to the prior study. No evidence of pneumothorax or pleural effusion is seen. MEDIASTINUM AND CARDIOVASCULAR STRUCTURES: Cardiac silhouette not enlarged. BONES AND SOFT TISSUES: Degenerative bone changes seen.. RAD/Chest 1 View (Portable) IMPRESSION: Prominent interstitial lung markings demonstrate no significant change in comparison to the prior study. Electronically Signed: Joce Guzman MD at 10:34 EDT ,
[2022-05-22 10:36] LABS: ALB/GLOB Ratio 0.8 RATIO (0.9-2.4); AST(SGOT) 25 U/L (15-37); Alanine Aminotransfer ALT/SGPT 28 U/L (16-61); Albumin, Serum 3.1 g/dL (3.2-5.0); Alkaline Phosphatase 60 U/L (45-117); Anion Gap 6 (5-15); BUN 19 mg/dL (7-18); BUN/Creat Ratio 13.6 RATIO (10-20); Calcium,Total 8.9 mg/dL (8.5-10.1); Chloride 104 mmol/L (98-107); EST Glomerular Filtration Rate 51 mL/min (>60); Est Glom Filt Rate - Afr Amer 62 mL/min (>60); Estimated Creatinine Clearance 40.56 ml/min; Glucose 142 mg/dL (74-106); Potassium 4.2 mmol/L (3.5-5.1); Protein, Total 7.1 g/dL (6.4-8.2); Sodium Level 137 mmol/L (136-145); Troponin-I HS 46 pg/mL (3.0-78.0)
[2022-05-22 10:56] LABS: Absolute Lymphocyte Count 2.04 X10^3/uL (0.83-4.51); Absolute Neutrophil Count 6.1 X10^3/uL (2.0-7.7); Basophil# 0.03 X10^3/uL; Basophil% 0.3 % (0-1); Eosinophil# 0.18 X10^3/uL; Hematocrit 31.5 % (40-54); Hemoglobin 9.7 g/dL (13.0-16.5); Lymphocyte # 2.04 X10^3/ul (0.83-4.51); Lymphocyte % 22.3 % (19-41); Mean Corp Hgb Conc 30.8 g/dL (32-36); Mean Corpuscular Hgb 27.2 pg (27.0-32.0); Mean Corpuscular Volume 88.2 fL (80-94); Mean Platelet Vol. 10.9 fl (6.2-12.0); Monocyte# 0.74 X10^3/uL; Monocyte% 8.1 % (0-10); NRBC Flagged by Analyzer 0 % (0-5); Neutrophil # 6.11 X10^3/uL (2.7-7.7); Neutrophil % 66.6 % (47-70); Platelet Count 283 K/mm3 (150-450); RBC Distribution Width CV 14.1 % (11.6-14.6); RBC Distribution Width SD 45.5 fl (35.1-43.9); Red Blood Count 3.57 M/mm3 (4.6-6.2); White Blood Count 9.2 K/mm3 (4.4-11.0)
[2022-05-22 11:24] LABS: BNP,B-Type NATRIURETIC PEPTIDE 432.4 pg/mL (0-100)
[2022-05-22] MEDS: Furosemide 40 MG/4 ML Vial IV (12:04)
[2022-05-22 12:48] VITALS: BP 179/72; PULSE 56; RESP 22; O2SAT 92; O2SAT 93
[2022-05-22 14:03] VITALS: BP 182/83; PULSE 58; RESP 18; O2SAT 93
== END 2022-05-22 14:26 | disposition home or self-care (01) ==
PROVIDERS: Emergency Provider Emergency Medicine; PCP Internal Medicine; Visit Provider Emergency Medicine
DX: J44.9 Chronic obstructive pulmonary disease, unspecified (principal); I50.9 Heart failure, unspecified; I13.0 Hypertensive heart and chronic kidney disease with heart failure and stage 1 through stage 4 chronic kidney disease, or unspecified chronic kidney disease; E11.22 Type 2 diabetes mellitus with diabetic chronic kidney disease; N18.32 Chronic kidney disease, stage 3b; R06.01 Orthopnea; I25.10 Atherosclerotic heart disease of native coronary artery without angina pectoris; E78.5 Hyperlipidemia, unspecified; Z87.891 Personal history of nicotine dependence; M19.90 Unspecified osteoarthritis, unspecified site; R06.09 Other forms of dyspnea; Z79.82 Long term (current) use of aspirin; Z79.899 Other long term (current) drug therapy; Z79.84 Long term (current) use of oral hypoglycemic drugs
CPT/HCPCS: 71045; 80053; 83880; 84484; 85025; 93005; 94640; 96374; 99285; A4216; J1940

== ENCOUNTER 2022-05-28 10:36 | Emergency (ER) | payer MEDICARE, SELFPAY ==
[2022-05-28 10:36] VITALS: BP 176/69; PULSE 65; RESP 18; TEMP 37; O2SAT 96; BMI 27.9
--- NOTE | 2022-05-28 11:08 | EKG12_ITS ---
Test Reason : weakness Blood Pressure : / mmHG Vent. Rate : 057 BPM Atrial Rate : 057 BPM P-R Int : 246 ms QRS Dur : 094 ms QT Int : 458 ms P-R-T Axes : 050 015 -12 degrees QTc Int : 445 ms Sinus bradycardia with 1st degree A-V block with Premature atrial complexes Nonspecific T wave abnormality Confirmed by JUAN SMITH, ANA ([id number]), story editor LASHANDA GARNETT ([id number]) on 05/30/2022 9:39:01 AM Referred By: Michael Confirmed By:ANA MARTINEZ MD
--- NOTE | 2022-05-28 11:14 | EX.ED.DYSGE1 ---
HPI History of Present Illness Chief Complaint: Weakness Informant: patient and spouse/S.O. Narrative Narrative: Patient presents with several month history of just not feeling well. He had prostate surgery on March 07 and states that has been downhill since then. He has had problems with urinary retention as well as bowel obstruction. He has been short of breath and weak. He has intermittent dizziness. This morning apparently he was weak and concerned that he could not get up and walk so he called EMS. He did apparently walk from the house to the squad. Patient denies chest pain or shortness of breath at this time. He does report intermittent cough with clear to yellow sputum production. He denies having fever or chills. He denies vomiting or diarrhea. He does self cath 3 times a day and states he did do that this morning. [facility] Medical History Abdominal aortic aneurysm (AAA) Acute cystitis with hematuria Ambulates with cane Anemia Aortic aneurysm Arthritis Asthma Atherosclerotic heart disease of [place] coronary artery without angina pectoris Back pain BiPAP (biphasic positive airway pressure) dependence Cancer Cardiology follow-up encounter Carotid bruit Chest pain Chronic constipation Chronic cough COPD (chronic obstructive pulmonary disease) Daytime hypersomnia DDD (degenerative disc disease), lumbar Diabetes DM2 (diabetes mellitus, type 2) Dyslipidemia Easy bruising Essential (primary) hypertension Former smoker Gastric reflux High cholesterol History of echocardiogram History of edema History of heart attack History of hiatal hernia History of irregular heartbeat History of pain when walking History of renal disease History of steroid therapy History of stress test HLD (hyperlipidemia) Hoarseness Hypertension Injury of back Kidney stone Leg cramps MARIXA (obstructive sleep apnea) Overweight Patellar bursitis of right knee Peripheral vascular disease of extremity with claudication Pre-syncope PVD (peripheral vascular disease) Rectus sheath hematoma Recurrent urinary tract infection Restless legs Restless legs syndrome Seasonal allergies Shortness of breath on exertion Sleep apnea Somatic dysfunction of pelvic region Stage 3b chronic kidney disease Walker as ambulation aid Wears dentures Wears glasses Wears hearing aid Home Medications aspirin 81 mg chewable tablet 81 mg PO QHS heart health 03/28/14 [History Last Taken 02/27/22] pantoprazole 40 mg tablet,delayed release 40 mg PO DAILY reflux 03/28/14 [History Last Taken 03/09/22] ammonium lactate 12 % lotion 1 applic topical QD-BID PRN dry skin 02/06/18 [History Last Taken Unknown] triamcinolone acetonide 55 mcg nasal spray aerosol (Nasacort) 2 spray intranasal DAILY allergies 09/04/18 [History Last Taken 03/09/22] handicap placcard #1 ea 09/28/19 [Rx Last Taken Unknown] ascorbate calcium (vitamin C) 500 mg tablet 500 mg PO DAILY Bone strength 05/03/20 [History Last Taken 03/09/22] coenzyme Q10 100 mg capsule (Co Q-10) 100 mg PO DAILY 05/03/20 [History Last Taken Unknown] cholecalciferol (vitamin D3) 100 mcg (4,000 unit) tablet 100 mcg PO DAILY 11/03/20 [History Last Taken Unknown] spacer #1 ea 01/12/21 [Rx Last Taken Unknown] nitroglycerin 0.4 mg sublingual tablet (Nitrostat) 0.4 mg sublingual Q5-15M PRN chest pain #25 tabs 11/01/21 [Rx Last Taken Unknown] albuterol sulfate 90 mcg/actuation aerosol inhaler (Ventolin HFA) 2 inh inhalation Q4H PRN shortness of breath or wheezing #18 grams 11/27/21 [Rx Last Taken Unknown] metformin 850 mg tablet 500 mg PO BID Blood Glucose 01/25/22 [History Last Taken 03/09/22] atorvastatin 40 mg tablet 40 mg PO QODAY cholesterol #45 tabs 02/20/22 [Rx Last Taken 03/08/22] ipratropium 0.5 mg-albuterol 3 mg (2.5 mg base)/3 mL nebulization soln 3 ml inhalation 4X/DAY PRN PRN shortness of breath or wheezing #90 mL 02/21/22 [Rx Last Taken 03/09/22] ipratropium bromide 42 mcg (0.06 %) nasal spray 2 spray intranasal TID-QID PRN allergy symptoms #15 mL 02/21/22 [Rx Last Taken Unknown] budesonide-formoterol HFA 160 mcg-4.5 mcg/actuation aerosol inhaler (Symbicort) 2 puff inhalation BID Respitory 03/09/22 [History Last Taken 03/06/22] loratadine 10 mg capsule 10 mg PO QDAY Allergies 06/03/22 [History Last Taken 03/09/22] montelukast 10 mg tablet 10 mg PO QHS Respiratory 03/09/22 [History Last Taken 03/08/22] acetaminophen 500 mg tablet 1,000 mg PO Q6H PRN PRN Pain Score 1-10 #0 tabs 03/19/22 [Rx Last Taken Unknown] ropinirole 0.5 mg tablet 0.5 mg PO TID 04/22/22 [History Last Taken Unknown] tamsulosin 0.4 mg capsule (Flomax) 0.4 mg PO DAILY #30 caps 04/22/22 [Rx Last Taken Unknown] carvedilol 25 mg tablet 25 mg PO BID #180 tabs 05/22/22 [Rx Last Taken Unknown] furosemide 40 mg tablet 40 mg PO DAILY #90 tabs 05/22/22 [Rx Last Taken Unknown] hydralazine 100 mg tablet 100 mg PO TID Disreguard previous RX: dose changed #360 tabs 05/22/22 [Rx Last Taken Unknown] isosorbide mononitrate 30 mg tablet,extended release 24 hr 30 mg PO DAILY 05/22/22 [History Last Taken Unknown] Allergy/AdvReac Type Severity Reaction Status Date / Time cilostazol [From Pletal] Allergy Unknown Verified 05/28/22 12:44 felodipine Allergy Hives Verified 05/28/22 12:44 levofloxacin Allergy Hives Verified 05/28/22 12:44 Sulfa (Sulfonamide Allergy Unknown Verified 05/28/22 12:44 Antibiotics) Family History Father Diabetes Cancer Prostate cancer Surgical History H/O aortic aneurysm repair (11/1998) History of coronary artery stent placement (02/17/08) History of endarterectomy (07/2018) History of hernia repair History of left heart catheterization (03/2014) History of transurethral resection of prostate History of vascular surgery (08/2018) Social History household members: spouse Smoking Status: Former smoker how long ago did patient quit smokin years ago alcohol intake: current alcohol intake frequency: holidays/special occasions only details: hx of alcohol abuse substance use type: does not use caffeine: No what type of physical activity do you participate in: other details: Nustep frequency: 5-6 times per week duration: 15-30 minutes/day seatbelt use: always do you feel safe at home: Yes ROS ROS ED Constitutional Constitutional ED: Denies chills or fever(s) Eyes Eyes: Denies change in vision ENT ENT ED: Denies sore throat Cardiovascular Cardiovascular: Denies chest pain Respiratory/Chest Respiratory/Chest: Reports cough and sputum; Denies dyspnea Gastrointestinal Gastrointestinal: Denies abdominal pain, diarrhea, nausea or vomiting Genitourinary Genitourinary ED: Reports other Details: Self cath for urine. No strong odor. Musculoskeletal Musculoskeletal: Denies back pain Integumentary Denies rash Neurologic Neurologic: Reports weakness; Denies headache(s) Allergic/Immunologic Allergic/Immunologic ED: Denies urticaria EXAM Physical Exam Const Vital Signs: 05/28/22 10:36 05/28/22 12:44 05/28/22 13:18 Temperature 98.6 F Temperature Source Temporal Pulse Rate 65 58 L 60 Respiratory Rate 18 18 12 Respiratory Effort Respiratory Pattern Blood Pressure 176/69 H Blood Pressure Mean 104 Pulse Ox 96 94 98 Oxygen Delivery Method Room Air Room Air 05/28/22 13:58 Temperature Temperature Source Pulse Rate Respiratory Rate Respiratory Effort Normal Non-Labored Respiratory Pattern Normal Blood Pressure Blood Pressure Mean Pulse Ox Oxygen Delivery Method Positive well nourished and well developed General Appearance ED: well developed HEENT Reports normocephalic and head/scalp atraumatic Eyes PERRL and EOMs intact bilaterally Neck supple Chest Wall inspection of chest normal and palpation of chest normal Resp normal respiratory effort and clear to auscultation bilaterally Cardio regular rate and regular rhythm GI normal to inspection, nondistended, normoactive bowel sounds Palpation: soft Extremity normal to inspection Neuro oriented x3 and no sensory deficits noted Sensorium / Orientation: alert Motor Exam: strength 5/5 throughout Psych mental status grossly normal Skin no rashes or lesions noted MDM MDM MDM Narrative Medical decision making narrative: Patient placed on multi slide machine tender. EKG, chest x-ray, lab work, urinalysis ordered. Lab Data Attestation: I reviewed the patient's lab results. Labs: Laboratory Results - last 24 hr 05/28/22 05/28/22 05/28/22 10:15 10:15 11:32 WBC 8.8 RBC 2.21 L Hgb 10.3 L Hct 32.0 L MCV 85.8 MCH 27.6 MCHC 32.2 RDW Std Deviation 43.6 RDW Coeff of Justin 14.0 Plt Count 273 MPV 11.5 Immature Gran % (Auto) 0.600 Neut % (Auto) 67.5 Lymph % (Auto) 23.4 [place] % (Auto) 6.7 Eos % (Auto) 1.6 Baso % (Auto) 0.2 Absolute Neuts (auto) 5.9 Absolute Lymphs (auto) 2.06 Nucleated RBC % 0 Sodium 135 L Potassium 4.1 Chloride 100 Carbon Dioxide 28.0 Anion Gap 7 BUN 25 H Creatinine 1.57 H Estim Creat Clear Calc 36.16 Est GFR (MDRD) Af Amer 54 L Est GFR (MDRD) Non-Af 45 L BUN/Creatinine Ratio 15.9 Glucose 220 H Calcium 9.4 Total Bilirubin 0.40 Direct Bilirubin 0.11 AST 21 ALT 20 Alkaline Phosphatase 62 Troponin I High Sens 32 Total Protein 7.5 Albumin 3.2 Globulin 4.3 H TSH 1.98 Urine Color Yellow Urine Clarity Sl. Cloudy Urine pH 6.0 Ur Specific [place] 1.015 Urine Protein 500 H Urine Glucose (UA) Normal Urine Ketones Negative Urine Occult Blood Negative Urine Nitrite Negative Urine Bilirubin Negative Urine Urobilinogen Normal Ur Leukocyte Esterase 500 H Urine RBC 0 SEEN Urine WBC 25-50 SEEN Ur Squamous Epith Cells 0-5 SEEN Urine Bacteria 0 SEEN Urine Mucus 0 SEEN Radiography Chest X-Ray - ED: 1 View, Read by ED Physician and Chronic Changes Diagnostic Testing: Clinical Impression(s) from Imaging Studies Chest X-Ray 05/28/22 11:35 IMPRESSION: Mild residual increased markings at the lung bases. There has been improvement as compared to prior study. This is suggestive of bibasilar scarring. Hyperinflation. Electronically Signed: Yemi Clifton MD at 12:04 EDT , EKG Initial EKG: Attestation: I personally reviewed and interpreted this EKG as follows: Interpretation: Sinus Bradycardia (Sinus bradycardia 57 bpm. No acute ischemia.) Treatment and Re-Evaluation Narrative: Patient was observed ambulating in the [place] to the restroom and back without difficulty. On repeat evaluation he is resting comfortably. Lab work reveals mild anemia with a hemoglobin of 10.3. Chemistry studies significant for a creatinine of 1.57, however this appears consistent with his prior. LFTs unremarkable. Troponin negative. TSH is normal. Urinalysis does reveal 25-50 white cells but 0 bacteria and no nitrites. This will be sent for culture but patient would not be treated with antibiotics. Chest x-ray reveals no obvious infiltrates. EKG reveals no ischemia. Patient and updated on test results. He will continue supportive care at home. Discharge Plan Triage Chief Complaint: Weakness Other Complaint: Shortness of Breath ED Provider: Rosa Collins Dx/Rx/DC Orders Clinical Impression: Weakness Instructions: ED Weakness (Uncertain Cause) Prescriptions: No Action ammonium lactate 12 % lotion 1 applic TOPICAL QD-BID PRN (Reason: dry skin ) triamcinolone acetonide [Nasacort] 55 mcg aerosol,spray 2 spray INTRANASAL DAILY (DME) handicap placcard Qty: 1 0RF Rx Instructions: Lifetime: debility coenzyme Q10 [Co Q-10] 100 mg capsule 100 mg PO DAILY ascorbate calcium (vitamin C) 500 mg tablet 500 mg PO DAILY cholecalciferol (vitamin D3) 100 mcg (4,000 unit) tablet 100 mcg (4,000 unit) tablet 100 mcg PO DAILY (DME) spacer See Rx Instructions .ROUTE .MEDSUPPLY Qty: 1 0RF Rx Instructions: As directed nitroglycerin [Nitrostat] 0.4 mg tablet, sublingual 0.4 mg SUBLINGUAL Q5-15M PRN (Reason: chest pain) Qty: 25 2RF ipratropium-albuterol 0.5 mg-3 mg(2.5 mg base)/3 mL solution for nebulization 3 ml inhalation 4X/DAY PRN PRN (Reason: shortness of breath or wheezing) Qty: 90 6RF ipratropium bromide 42 mcg (0.06 %) spray,non-aerosol 2 spray INTRANASAL TID-QID PRN (Reason: allergy symptoms) Qty: 15 6RF Rx Instructions: nasal drip - administer into each nostril; wait 30 seconds between sprays metformin 850 mg tablet 500 mg PO BID pantoprazole 40 MG tablet 40 mg PO DAILY Label Comments: acid reflux aspirin 81 MG tablet,chewable 81 mg PO QHS Label Comments: antiplatelet montelukast 10 mg tablet 10 mg PO QHS budesonide-formoterol [Symbicort] 160-4.5 mcg/actuation HFA aerosol inhaler 2 puff INHALATION BID Rx Instructions: administer with spacer, rinse mouth after each use loratadine 10 mg capsule 10 mg PO QDAY Rx Instructions: allergies acetaminophen 500 mg Tablet 1,000 mg PO Q6H PRN PRN (Reason: Pain Score 1-10) Qty: 0 0RF ropinirole 0.5 mg Tablet 0.5 mg PO TID tamsulosin [Flomax] 0.4 mg capsule 0.4 mg PO DAILY Qty: 30 0RF isosorbide mononitrate 30 mg tablet extended release 24 hr 30 mg PO DAILY albuterol sulfate [Ventolin HFA] 90 mcg/actuation HFA aerosol inhaler 2 inh INHALATION Q4H PRN (Reason: shortness of breath or wheezing) Qty: 18 6RF atorvastatin 40 mg tablet 40 mg PO QODAY Qty: 45 3RF furosemide 40 mg tablet 40 mg PO DAILY Qty: 90 3RF hydralazine 100 mg tablet 100 mg PO TID Qty: 360 3RF carvedilol 25 mg tablet 25 mg PO BID Qty: 180 3RF Rx Instructions: must administer with a meal/food Primary Care Provider: Emeka Horn Referrals: Emeka Horn MD [Primary Care Provider] - 1 Week Disposition Disposition: Home, Self Care
[2022-05-28 11:22] LABS: Absolute Lymphocyte Count 2.06 X10^3/uL (0.83-4.51); Absolute Neutrophil Count 5.9 X10^3/uL (2.0-7.7); Basophil# 0.02 X10^3/uL; Basophil% 0.2 % (0-1); Eosinophil# 0.14 X10^3/uL; Eosinophils% 1.6 % (0-5); Lymphocyte # 2.06 X10^3/ul (0.83-4.51); Lymphocyte % 23.4 % (19-41); Mean Platelet Vol. 11.5 fl (6.2-12.0); Monocyte# 0.59 X10^3/uL; Monocyte% 6.7 % (0-10); NRBC Flagged by Analyzer 0 % (0-5); Neutrophil # 5.94 X10^3/uL (2.7-7.7); Neutrophil % 67.5 % (47-70); POSITIVE COUNT YES; Platelet Count 273 K/mm3 (150-450); Red Blood Count 2.21 M/mm3 (4.6-6.2); White Blood Count 8.8 K/mm3 (4.4-11.0)
--- NOTE | 2022-05-28 11:35 | RAD_ITS ---
STUDY: X-RAY CHEST REASON FOR EXAM: Male, 86 years old. Sob TECHNIQUE: Single AP portable view of the chest. COMPARISON: Comparison is made with prior study dated 05/22/2002. FINDINGS: EKG electrodes are seen. Mild residual increased interstitial markings at the lung bases although there has been improvement as compared to prior study. This may represent bibasilar scarring. Hyperinflation. Normal size heart. Normal mediastinum and frank. Normal visualized pulmonary arteries. There is atherosclerotic calcification of the aortic arch with tortuosity. There are diffuse degenerative changes of the visualized thoracic spine. Prior ORIF of the right clavicle. There is no demonstrated abnormality of the visualized soft tissue structures of the upper abdomen. RAD/Chest 1 View (Portable) IMPRESSION: Mild residual increased markings at the lung bases. There has been improvement as compared to prior study. This is suggestive of bibasilar scarring. Hyperinflation. Electronically Signed: Yemi Clifton MD at 12:04 EDT ,
[2022-05-28 11:36] LABS: Bacteria 0 SEEN /hpf (None Seen); Mucous, Urine 0 SEEN /hpf (<or=2+); Red Blood Cells-Urine 0 SEEN /hpf (0-5)
[2022-05-28 11:38] LABS: Hemoglobin 10.3 g/dL (13.0-16.5); Mean Corp Hgb Conc 32.2 g/dL (32-36); Mean Corpuscular Hgb 27.6 pg (27.0-32.0); Mean Corpuscular Volume 85.8 fL (80-94); RBC Distribution Width SD 43.6 fl (35.1-43.9)
[2022-05-28 11:41] LABS: Color, Urine Yellow (Yellow); Glucose, Dipstick Normal (Normal); Ketone-Dipstick Negative (Negative); Leukocyte Esterase-Dipstick 500 /ul (Negative); Nitrite-Dipstick Negative (Negative); Occult Blood-Urine Negative /ul (Negative); Protein-Dipstick 500 mg/dl (Negative); Specific Gravity, Urine 1.015 (1.002-1.030); Urine Bilirubin Dipstick Negative (Negative); Urine Clarity Sl. Cloudy (Clear); Urine Urobilinogen Normal (Normal)
[2022-05-28 11:43] LABS: AST(SGOT) 21 U/L (15-37); Alanine Aminotransfer ALT/SGPT 20 U/L (16-61); Albumin, Serum 3.2 g/dL (3.2-5.0); Alkaline Phosphatase 62 U/L (45-117); Anion Gap 7 (5-15); BUN 25 mg/dL (7-18); BUN/Creat Ratio 15.9 RATIO (10-20); Bilirubin, Direct 0.11 mg/dL (0.00-0.30); Calcium,Total 9.4 mg/dL (8.5-10.1); Chloride 100 mmol/L (98-107); Creatinine, Serum 1.57 mg/dL (0.70-1.30); EST Glomerular Filtration Rate 45 mL/min (>60); Est Glom Filt Rate - Afr Amer 54 mL/min (>60); Estimated Creatinine Clearance 36.16 ml/min; Globulin 4.3 g/dL (2.2-4.2); Glucose 220 mg/dL (74-106); Potassium 4.1 mmol/L (3.5-5.1); Protein, Total 7.5 g/dL (6.4-8.2); Sodium Level 135 mmol/L (136-145); Thyroid Stim Hormone (TSH) 1.98 uIU/mL (0.358-3.74); Troponin-I HS 32 pg/mL (3.0-78.0)
[2022-05-28 11:52] LABS: White Blood Cells 25-50 SEEN /hpf (0-5)
[2022-05-28 11:53] LABS: Squamous Epithelial Cells - UA 0-5 SEEN /hpf (0-5)
[2022-05-28 12:44] VITALS: PULSE 58; RESP 18; O2SAT 94
[2022-05-28 13:18] VITALS: PULSE 60; RESP 12; O2SAT 98
--- NOTE | 2022-05-28 13:41 | CM.ED ---
SW reviewed legal documents HCPOA and Living Will are documented in [employer]. Lucy MALIK
[2022-05-28] MEDS: 0.9% Normal Saline 1,000 ML 150 ML IV (14:17)
[2022-05-28 14:22] VITALS: BP 154/59; PULSE 56; RESP 16; O2SAT 98
== END 2022-05-28 14:25 | disposition home or self-care (01) ==
PROVIDERS: Emergency Provider Emergency Medicine; PCP Internal Medicine; Visit Provider Emergency Medicine
DX: R53.1 Weakness (principal); J44.9 Chronic obstructive pulmonary disease, unspecified; E11.22 Type 2 diabetes mellitus with diabetic chronic kidney disease; K56.609 Unspecified intestinal obstruction, unspecified as to partial versus complete obstruction; N18.32 Chronic kidney disease, stage 3b; I12.9 Hypertensive chronic kidney disease with stage 1 through stage 4 chronic kidney disease, or unspecified chronic kidney disease; E78.5 Hyperlipidemia, unspecified; I25.10 Atherosclerotic heart disease of native coronary artery without angina pectoris; R33.9 Retention of urine, unspecified; Z79.82 Long term (current) use of aspirin; Z79.84 Long term (current) use of oral hypoglycemic drugs; Z79.899 Other long term (current) drug therapy; Z87.891 Personal history of nicotine dependence
CPT/HCPCS: 71045; 80048; 80076; 81001; 84443; 84484; 85025; 87086; 87088; 93005; 99285; J7030; A4216

== ENCOUNTER 2022-06-02 22:02 | Inpatient (IN) | payer MEDICARE, SELFPAY ==
[2022-06-02 22:03] VITALS: BP 182/62; PULSE 83; RESP 16; TEMP 36.7; O2SAT 96; BMI 27.6
--- NOTE | 2022-06-02 22:36 | EKG12_ITS ---
Test Reason : CP Blood Pressure : / mmHG Vent. Rate : 092 BPM Atrial Rate : 092 BPM P-R Int : 218 ms QRS Dur : 094 ms QT Int : 406 ms P-R-T Axes : 000 054 005 degrees QTc Int : 502 ms Sinus rhythm with 1st degree A-V block Nonspecific ST abnormality Prolonged QT Abnormal ECG Confirmed by JUAN SMITH, ANA ([id number]), science editor AMPARO MALHOTRA ([id number]) on 06/05/2022 6:20:36 AM Referred By: MARY Confirmed By:ANA MARTINEZ MD
--- NOTE | 2022-06-02 22:37 | ED.VIS.CHEST ---
HPI History of Present Illness Chief Complaint: Chest Pain Informant: patient and spouse/S.O. Onset/Context/Timing Onset: Hours (1.5) Activity at onset: sudden and rest Timing: Continuous Quality: Positive for Burning Location: Right Chest (Radiating to both arms and jaw) Current Severity: Mild Maximum Severity: Moderate Worsened By: Nothing; Not Worsened By Breathing Relieved By: NTG (Took 1 prior to arrival) Associated Symptoms: Negative for Nausea, Vomiting, Diaphoresis, Dyspnea, Fever, Lightheadedness or Palpitations Narrative Narrative: Patient started having chest discomfort about an hour and a half ago at rest. States he has had this before, but is usually relatively short-lived and does not last this long, and this episode is more severe. He does not get this very often. He is states he has a history of having 9 stents the last of which was placed in 2007 or so. He is on aspirin no other anticoagulant or antiplatelet medications. He denies any recent illness. States chest discomfort is still there but mild right now. He was seen here a week or 2 ago due to trouble breathing, he was discharged to follow-up with cardiology, they heard or saw some skipped beats according to the and so he is being set up this coming week for a Holter of some sort. [facility] Medical History Abdominal aortic aneurysm (AAA) Acute cystitis with hematuria Ambulates with cane Anemia Aortic aneurysm Arthritis Asthma Atherosclerotic heart disease of [place] coronary artery without angina pectoris Back pain BiPAP (biphasic positive airway pressure) dependence Cancer Cardiology follow-up encounter Carotid bruit Chest pain Chronic constipation Chronic cough COPD (chronic obstructive pulmonary disease) Daytime hypersomnia DDD (degenerative disc disease), lumbar Diabetes DM2 (diabetes mellitus, type 2) Dyslipidemia Easy bruising Essential (primary) hypertension Former smoker Gastric reflux High cholesterol History of echocardiogram History of edema History of heart attack History of hiatal hernia History of irregular heartbeat History of pain when walking History of renal disease History of steroid therapy History of stress test HLD (hyperlipidemia) Hoarseness Hypertension Injury of back Kidney stone Leg cramps MARIXA (obstructive sleep apnea) Overweight Patellar bursitis of right knee Peripheral vascular disease of extremity with claudication Pre-syncope PVD (peripheral vascular disease) Rectus sheath hematoma Recurrent urinary tract infection Restless legs Restless legs syndrome Seasonal allergies Shortness of breath on exertion Sleep apnea Somatic dysfunction of pelvic region Stage 3b chronic kidney disease Walker as ambulation aid Wears dentures Wears glasses Wears hearing aid Home Medications pantoprazole 40 mg tablet,delayed release 40 mg PO DAILY reflux 03/28/14 [History Last Taken 03/09/22] ammonium lactate 12 % lotion 1 applic topical QD-BID PRN dry skin 02/06/18 [History Last Taken Unknown] triamcinolone acetonide 55 mcg nasal spray aerosol (Nasacort) 2 spray intranasal DAILY allergies 09/04/18 [History Last Taken 03/09/22] handicap placcard #1 ea 09/28/19 [Rx Last Taken Unknown] ascorbate calcium (vitamin C) 500 mg tablet 500 mg PO DAILY Bone strength 05/03/20 [History Last Taken 03/09/22] coenzyme Q10 100 mg capsule (Co Q-10) 100 mg PO DAILY 05/03/20 [History Last Taken Unknown] cholecalciferol (vitamin D3) 100 mcg (4,000 unit) tablet 100 mcg PO DAILY 11/03/20 [History Last Taken Unknown] spacer #1 ea 01/12/21 [Rx Last Taken Unknown] nitroglycerin 0.4 mg sublingual tablet (Nitrostat) 0.4 mg sublingual Q5-15M PRN chest pain #25 tabs 11/01/21 [Rx Last Taken Unknown] albuterol sulfate 90 mcg/actuation aerosol inhaler (Ventolin HFA) 2 inh inhalation Q4H PRN shortness of breath or wheezing #18 grams 11/27/21 [Rx Last Taken Unknown] atorvastatin 40 mg tablet 40 mg PO QODAY cholesterol #45 tabs 02/20/22 [Rx Last Taken 03/08/22] ipratropium 0.5 mg-albuterol 3 mg (2.5 mg base)/3 mL nebulization soln 3 ml inhalation 4X/DAY PRN PRN shortness of breath or wheezing #90 mL 02/21/22 [Rx Last Taken 03/09/22] ipratropium bromide 42 mcg (0.06 %) nasal spray 2 spray intranasal TID-QID PRN allergy symptoms #15 mL 02/21/22 [Rx Last Taken Unknown] budesonide-formoterol HFA 160 mcg-4.5 mcg/actuation aerosol inhaler (Symbicort) 2 puff inhalation BID Respitory 03/09/22 [History Last Taken 03/06/22] montelukast 10 mg tablet 10 mg PO QHS Respiratory 03/09/22 [History Last Taken 03/08/22] acetaminophen 500 mg tablet 1,000 mg PO Q6H PRN PRN Pain Score 1-10 #0 tabs 03/19/22 [Rx Last Taken Unknown] ropinirole 0.5 mg tablet 0.5 mg PO TID 04/22/22 [History Last Taken Unknown] carvedilol 25 mg tablet 25 mg PO BID #180 tabs 05/22/22 [Rx Last Taken Unknown] furosemide 40 mg tablet 40 mg PO DAILY #90 tabs 05/22/22 [Rx Last Taken Unknown] hydralazine 100 mg tablet 100 mg PO TID Disreguard previous RX: dose changed #360 tabs 05/22/22 [Rx Last Taken Unknown] isosorbide mononitrate 30 mg tablet,extended release 24 hr 30 mg PO DAILY 05/22/22 [History Last Taken Unknown] aspirin 81 mg chewable tablet 81 mg PO QHS heart health 05/30/22 [History Last Taken Unknown] loratadine 10 mg tablet 10 mg PO DAILY 05/30/22 [History Last Taken Unknown] metformin 850 mg tablet 850 mg PO BID Blood Glucose 05/30/22 [History Last Taken Unknown] Allergy/AdvReac Type Severity Reaction Status Date / Time cilostazol [From Pletal] Allergy Unknown Verified 06/02/22 22:07 felodipine Allergy Hives Verified 06/02/22 22:07 levofloxacin Allergy Hives Verified 06/02/22 22:07 Sulfa (Sulfonamide Allergy Unknown Verified 06/02/22 22:07 Antibiotics) Family History Father Diabetes Cancer Prostate cancer Surgical History H/O aortic aneurysm repair (11/1998) History of coronary artery stent placement (02/17/08) History of endarterectomy (07/2018) History of hernia repair History of left heart catheterization (03/2014) History of transurethral resection of prostate History of vascular surgery (08/2018) Social History household members: spouse Smoking Status: Former smoker how long ago did patient quit smokin years ago alcohol intake: current alcohol intake frequency: holidays/special occasions only details: hx of alcohol abuse substance use type: does not use caffeine: No what type of physical activity do you participate in: other details: Nustep frequency: 5-6 times per week duration: 15-30 minutes/day seatbelt use: always do you feel safe at home: Yes ROS ROS ED Constitutional Constitutional ED: Denies chills or fever(s) Eyes Eyes: Denies change in vision or diplopia ENT ENT ED: Denies rhinorrhea or sore throat Cardiovascular Cardiovascular: Reports chest pain; Denies palpitations Respiratory/Chest Respiratory/Chest: Denies cough or dyspnea Gastrointestinal Gastrointestinal: Denies abdominal pain, diarrhea, nausea or vomiting Genitourinary Genitourinary ED: Denies dysuria or hematuria Musculoskeletal Musculoskeletal: Denies back pain or neck pain Integumentary Denies abscess or rash Neurologic Neurologic: Denies headache(s), paresthesias or weakness Psychiatric Psychiatric: Denies anxiety or suicidal thoughts EXAM Physical Exam Const Vital Signs: 06/02/22 22:03 06/02/22 22:17 06/02/22 22:52 Temperature 98.1 F Temperature Source Temporal Pulse Rate 83 Respiratory Rate 16 Respiratory Effort Normal Non-Labored Blood Pressure 182/62 H Blood Pressure Mean 102 Pulse Ox 96 Oxygen Delivery Method Room Air Room Air 06/02/22 22:56 06/02/22 23:03 06/03/22 00:16 Temperature Temperature Source Pulse Rate 71 65 65 Respiratory Rate 18 18 Respiratory Effort Blood Pressure 164/64 H 166/74 H 176/69 H Blood Pressure Mean 104 104 Pulse Ox 95 97 Oxygen Delivery Method Room Air Room Air 06/03/22 01:15 06/03/22 02:00 Temperature Temperature Source Pulse Rate 70 84 Respiratory Rate 18 18 Respiratory Effort Blood Pressure 178/81 H 168/90 H Blood Pressure Mean 113 116 Pulse Ox 97 94 Oxygen Delivery Method Room Air Room Air Positive well nourished and well developed General Appearance ED: well developed and NAD HEENT Reports moist mucous membranes normocephalic and atraumatic Eyes PERRL and EOMs intact bilaterally Neck full ROM and supple Resp normal respiratory effort and clear to auscultation bilaterally Cardio regular rate, regular rhythm and no murmurs GI non-tender and non-distended Auscultation: normoactive bowel sounds Palpation: soft Back/Spine no CVA tenderness General Back: other FROM Extremity normal to inspection General Extremety ED: Yes edema; Negative for pulses abnormal or tenderness General Extremity: edema bilateral lower extremity Details: mild; Negative for pulses abnormal Neuro oriented x3, CN's II-XII intact bilaterally and no sensory deficits noted Sensorium / Orientation: awake and alert Motor Exam: strength 5/5 throughout Psych mental status grossly normal Skin no rashes or lesions noted and no wounds Heart Score History: Highly Suspicious ECG: Significant ST-Depression Age: >/= 65 years Risk Factors: >/= 3 Risk Factors or History of CAD Troponin: </= Normal Limit Score: 8 MDM MDM MDM Narrative Medical decision making narrative: Patient was given aspirin and nitroglycerin paste 1 inch, on reevaluation he has chest pain-free. His EKG initially showed some mild ST depressions inferolaterally, more prominent in the high lateral leads than elsewhere. These are new. His repeat EKG when he was chest pain-free he shows almost complete resolution of these. I am concerned these are dynamic changes due to unstable angina. He has concerning disease, this seen from his heart catheterization from 03/29/2014: 1.? Left main coronary artery with mild proximal disease. 2.? Left anterior descending artery with mild to moderate diffuse disease. 3.? First diagonal vessel with high-grade proximal long 90% stenosis. 4.? Left circumflex artery with a diffuse disease present. 5.? Right coronary artery, which is dominant, previously stented with 50% in-stent stenosis.? Diffuse disease noted. 6.? Preserved ejection fraction is present. He did have a negative stress test in November, but he has been having unexplained dyspnea with exertion off-and-on lately in addition to less prominent episodes of similar discomfort that was worse tonight and persistent at rest. He does have pneumonia on the chest x-ray today which is new compared with his old, it is unknown if this is contributing to his dyspnea in the past several weeks. I discussed with Dr. Mar, he agrees admitting him would be reasonable for further evaluation, unknown if he definitely will need to or get a heart catheterization or not at this time. He does recommend heparin for now. Discussed with hospitalist, will defer antibiotics. Lab Data Attestation: I reviewed the patient's lab results. Labs: Laboratory Results - last 24 hr 06/02/22 06/02/22 06/02/22 22:24 22:24 22:24 WBC 9.4 RBC 3.48 L Hgb 9.2 L Hct 30.0 L MCV 86.2 MCH 26.4 L MCHC 30.7 L RDW Std Deviation 45.1 H RDW Coeff of Justin 14.3 Plt Count 302 MPV 11.6 Immature Gran % (Auto) 0.500 Neut % (Auto) 65.7 Lymph % (Auto) 22.6 [place] % (Auto) 8.4 Eos % (Auto) 2.6 Baso % (Auto) 0.2 Absolute Neuts (auto) 6.2 Absolute Lymphs (auto) 2.12 Nucleated RBC % 0 PT INR APTT 35.3 Sodium 135 L Potassium 3.6 Chloride 103 Carbon Dioxide 23.0 Anion Gap 9 BUN 23 H Creatinine 1.58 H Estim Creat Clear Calc 35.94 Est GFR (MDRD) Af Amer 54 L Est GFR (MDRD) Non-Af 45 L BUN/Creatinine Ratio 14.6 Glucose 199 H Calcium 8.9 Troponin I High Sens 34 06/03/22 06/03/22 00:37 02:05 WBC RBC Hgb Hct MCV MCH MCHC RDW Std Deviation RDW Coeff of Justin Plt Count MPV Immature Gran % (Auto) Neut % (Auto) Lymph % (Auto) [place] % (Auto) Eos % (Auto) Baso % (Auto) Absolute Neuts (auto) Absolute Lymphs (auto) Nucleated RBC % PT Cancelled INR Cancelled APTT Cancelled Sodium Potassium Chloride Carbon Dioxide Anion Gap BUN Creatinine Estim Creat Clear Calc Est GFR (MDRD) Af Amer Est GFR (MDRD) Non-Af BUN/Creatinine Ratio Glucose Calcium Troponin I High Sens 43 Radiography Chest X-Ray - ED: 1 View, Read by ED Physician and Right Infiltrate Diagnostic Testing: Clinical Impression(s) from Imaging Studies Chest X-Ray 06/02/22 22:50 IMPRESSION: New right upper lobe pneumonia. Follow to resolution. Electronically Signed: Ba Benoit MD at 23:12 EDT , EKG Initial EKG: Attestation: I personally reviewed and interpreted this EKG as follows: Interpretation: Sinus Rhythm and S-T Depression (Less than 1 mm infer[address] without ST elevations) Discharge Plan Dx/Rx/DC Orders Clinical Impression: Unstable angina, ALMEIDA (dyspnea on exertion), Coronary artery disease, Acute electrocardiogram changes, Pneumonia Disposition Disposition: Acute Care [facility]
--- NOTE | 2022-06-02 22:50 | RAD_ITS ---
EXAM: XR CHEST, 1 VIEW CLINICAL INDICATION: chest pain TECHNIQUE: Frontal view of the chest. This report was created using [facility] [facility] report generation technology. COMPARISON: 05/28/2022 FINDINGS: LUNGS AND PLEURAL SPACES: Right upper lobe pneumonia. Fibrotic changes at the lung bases. No pleural effusion or pneumothorax. HEART: Unremarkable. Cardiac silhouette not enlarged. MEDIASTINUM: Central airways and mediastinal contour are unremarkable. BONES/JOINTS: Bones are unchanged. SOFT TISSUES: Unremarkable. VASCULATURE: Atherosclerotic calcifications of the nonenlarged thoracic arch. RAD/Chest 1 View (Portable) IMPRESSION: New right upper lobe pneumonia. Follow to resolution. Electronically Signed: Ba Benoit MD at 23:12 EDT ,
[2022-06-02 22:56] VITALS: BP 164/64; PULSE 71
[2022-06-02] MEDS: Aspirin 81 MG TAB.CHEW 162 MG PO (22:56)
[2022-06-02] MEDS: Nitroglycerin Oint 1 INCH PACKET TRANSDERM. (22:56)
[2022-06-02 23:03] VITALS: BP 166/74; PULSE 65; RESP 18; O2SAT 95
[2022-06-02 23:06] LABS: Partial Thromboplast Time 35.3 Seconds (24.1-36.2)
[2022-06-02] MEDS: 0.9% Normal Saline 1,000 ML 150 ML IV (23:09)
[2022-06-02 23:11] LABS: Absolute Lymphocyte Count 2.12 X10^3/uL (0.83-4.51); Absolute Neutrophil Count 6.2 X10^3/uL (2.0-7.7); Basophil# 0.02 X10^3/uL; Basophil% 0.2 % (0-1); Eosinophil# 0.24 X10^3/uL; Eosinophils% 2.6 % (0-5); Hemoglobin 9.2 g/dL (13.0-16.5); Lymphocyte # 2.12 X10^3/ul (0.83-4.51); Lymphocyte % 22.6 % (19-41); Mean Corp Hgb Conc 30.7 g/dL (32-36); Mean Corpuscular Hgb 26.4 pg (27.0-32.0); Mean Corpuscular Volume 86.2 fL (80-94); Mean Platelet Vol. 11.6 fl (6.2-12.0); Monocyte# 0.79 X10^3/uL; Monocyte% 8.4 % (0-10); NRBC Flagged by Analyzer 0 % (0-5); Neutrophil # 6.16 X10^3/uL (2.7-7.7); Neutrophil % 65.7 % (47-70); Platelet Count 302 K/mm3 (150-450); RBC Distribution Width CV 14.3 % (11.6-14.6); RBC Distribution Width SD 45.1 fl (35.1-43.9); Red Blood Count 3.48 M/mm3 (4.6-6.2); White Blood Count 9.4 K/mm3 (4.4-11.0)
[2022-06-02 23:17] LABS: Anion Gap 9 (5-15); BUN 23 mg/dL (7-18); BUN/Creat Ratio 14.6 RATIO (10-20); Calcium,Total 8.9 mg/dL (8.5-10.1); Chloride 103 mmol/L (98-107); Creatinine, Serum 1.58 mg/dL (0.70-1.30); EST Glomerular Filtration Rate 45 mL/min (>60); Est Glom Filt Rate - Afr Amer 54 mL/min (>60); Estimated Creatinine Clearance 35.94 ml/min; Glucose 199 mg/dL (74-106); Potassium 3.6 mmol/L (3.5-5.1); Sodium Level 135 mmol/L (136-145); Troponin-I HS (w/2H Reflex) 34 pg/mL (3.0-78.0)
[2022-06-03] VITALS (24 sets, daily range): BP systolic 125–180; BP diastolic 68–96; PULSE 61–88; RESP 18–27; TEMP 36.2–36.8; O2SAT 92–98; BMI 27.6
--- NOTE | 2022-06-03 | EKG12_ITS ---
Test Reason : REPEAT EKG Blood Pressure : / mmHG Vent. Rate : 063 BPM Atrial Rate : 063 BPM P-R Int : 222 ms QRS Dur : 088 ms QT Int : 452 ms P-R-T Axes : 069 042 -13 degrees QTc Int : 462 ms Sinus rhythm with 1st degree A-V block with occasional Premature ventricular complexes Nonspecific ST abnormality Abnormal ECG Confirmed by JUAN SMITH, ANA ([id number]), website/blog editor AMPARO MALHOTRA ([id number]) on 06/05/2022 6:20:58 AM Referred By: MARY Confirmed By:ANA MARTINEZ MD
[2022-06-03 00:53] LABS: Reflex Troponin-HS? (from REC) Y
[2022-06-03 01:29] LABS: Troponin-I HS 43 pg/mL (3.0-78.0)
--- NOTE | 2022-06-03 02:09 | HP.PCM.HOS_ITS ---
HPI - General General Date of Admission: 06/03/22 Date of Service: 06/03/22 Chief Complaint: Chest pain, recent cough, dyspnea, productive sputum. HPI Narrative The patient is an 86 y/o M w/ PMHx: CAD s/p PCI x 9, MARIXA on BIPAP q HS, Former t obacco use, Chronic anemia, Hx AAA s/p repair 1998, Asthma/COPD w/ Allergic Rhinitis, CKD stage IIIb, Diabetes mellitus type II, HTN, HLD, GERD, RLS, PVD who presents to the [facility] ED on 06/02/22 with history of onset chest discomfort specifically to the right chest with radiation to bilateral upper extremity and jaw regions described as a burning sensation, ongoing with self administration of nitroglycerin prior to ED presentation with no associated nausea, emesis, dyspnea or diaphoresis reporting the episode to have occurred approximately 30 minutes to 1 hour prior to ED arrival reporting that he has had similar episodes prior but normally they are less long and this episode is more severe in addition. He was in the ED 2 weeks prior secondary to dyspnea sensation with discharge to follow-up with cardiology who evaluated him and noted some concerns for atypical arrhythmia with set up for Holter monitor outpatient. He does also report several day history of increased dyspnea, worse with exertion with productive cough of yellow sputum with increased cough above baseline with increased fatigue and malaise as well. Work-up in the ED included T98.1, heart rate 83, BP initially 182/62 with most recent repeat 166/74, respiratory rate 16, 96% on room air, CBC with WC 9.4, hemoglobin 9.2, MCV 86.2, platelet 302 without marked shift, PTT 35.3, BMP with sodium 135, BUN/creat 23/1.58, glucose 199, troponin initial 34 similar to prior with repeat delta 43, chest x-ray with evidence of a new right upper lobe pneumonia, EKG w/ sinus rhythm with ST depression less than 1 mm inferior laterally without ST elevations which is new from prior with repeat EKG following chest pain-free status with near complete resolution with concern for potential unstable angina as etiology of her dynamic changes. In the ED patient ministered normal saline, aspirin 162 mg p.o. x1 as well as nitroglycerin 1 inch transdermal paste, maintenance IV fluids and initiated on a heparin drip with bolus. Discussed CXR findings with ED physician and will initiate abx therapy upon floor transition. During ED evaluation patient oxygenation remained 93-94%. [facility] Medical History Abdominal aortic aneurysm (AAA) Acute cystitis with hematuria Ambulates with cane Anemia Aortic aneurysm Arthritis Asthma Atherosclerotic heart disease of [place] coronary artery without angina pectoris Back pain BiPAP (biphasic positive airway pressure) dependence Cancer Cardiology follow-up encounter Carotid bruit Chest pain Chronic constipation Chronic cough COPD (chronic obstructive pulmonary disease) Daytime hypersomnia DDD (degenerative disc disease), lumbar Diabetes DM2 (diabetes mellitus, type 2) Dyslipidemia Easy bruising Essential (primary) hypertension Former smoker Gastric reflux High cholesterol History of echocardiogram History of edema History of heart attack History of hiatal hernia History of irregular heartbeat History of pain when walking History of renal disease History of steroid therapy History of stress test HLD (hyperlipidemia) Hoarseness Hypertension Injury of back Kidney stone Leg cramps MARIXA (obstructive sleep apnea) Overweight Patellar bursitis of right knee Peripheral vascular disease of extremity with claudication Pre-syncope PVD (peripheral vascular disease) Rectus sheath hematoma Recurrent urinary tract infection Restless legs Restless legs syndrome Seasonal allergies Shortness of breath on exertion Sleep apnea Somatic dysfunction of pelvic region Stage 3b chronic kidney disease Walker as ambulation aid Wears dentures Wears glasses Wears hearing aid Home Medications pantoprazole 40 mg tablet,delayed release 40 mg PO DAILY reflux 03/28/14 [History Last Taken 03/09/22] ammonium lactate 12 % lotion 1 applic topical QD-BID PRN dry skin 02/06/18 [History Last Taken Unknown] triamcinolone acetonide 55 mcg nasal spray aerosol (Nasacort) 2 spray intranasal DAILY allergies 09/04/18 [History Last Taken 03/09/22] handicap placcard #1 ea 09/28/19 [Rx Last Taken Unknown] ascorbate calcium (vitamin C) 500 mg tablet 500 mg PO DAILY Bone strength 05/03/20 [History Last Taken 03/09/22] coenzyme Q10 100 mg capsule (Co Q-10) 100 mg PO DAILY 05/03/20 [History Last Taken Unknown] cholecalciferol (vitamin D3) 100 mcg (4,000 unit) tablet 100 mcg PO DAILY 11/03/20 [History Last Taken Unknown] spacer #1 ea 01/12/21 [Rx Last Taken Unknown] nitroglycerin 0.4 mg sublingual tablet (Nitrostat) 0.4 mg sublingual Q5-15M PRN chest pain #25 tabs 11/01/21 [Rx Last Taken Unknown] albuterol sulfate 90 mcg/actuation aerosol inhaler (Ventolin HFA) 2 inh inhalation Q4H PRN shortness of breath or wheezing #18 grams 11/27/21 [Rx Last Taken Unknown] atorvastatin 40 mg tablet 40 mg PO QODAY cholesterol #45 tabs 02/20/22 [Rx Last Taken 03/08/22] ipratropium 0.5 mg-albuterol 3 mg (2.5 mg base)/3 mL nebulization soln 3 ml inhalation 4X/DAY PRN PRN shortness of breath or wheezing #90 mL 02/21/22 [Rx Last Taken 03/09/22] ipratropium bromide 42 mcg (0.06 %) nasal spray 2 spray intranasal TID-QID PRN allergy symptoms #15 mL 02/21/22 [Rx Last Taken Unknown] budesonide-formoterol HFA 160 mcg-4.5 mcg/actuation aerosol inhaler (Symbicort) 2 puff inhalation BID Respitory 03/09/22 [History Last Taken 03/06/22] montelukast 10 mg tablet 10 mg PO QHS Respiratory 03/09/22 [History Last Taken 03/08/22] acetaminophen 500 mg tablet 1,000 mg PO Q6H PRN PRN Pain Score 1-10 #0 tabs 03/19/22 [Rx Last Taken Unknown] ropinirole 0.5 mg tablet 0.5 mg PO TID 04/22/22 [History Last Taken Unknown] carvedilol 25 mg tablet 25 mg PO BID #180 tabs 05/22/22 [Rx Last Taken Unknown] furosemide 40 mg tablet 40 mg PO DAILY #90 tabs 05/22/22 [Rx Last Taken Unknown] hydralazine 100 mg tablet 100 mg PO TID Disreguard previous RX: dose changed #360 tabs 05/22/22 [Rx Last Taken Unknown] isosorbide mononitrate 30 mg tablet,extended release 24 hr 30 mg PO DAILY [History Last Taken Unknown] aspirin 81 mg chewable tablet 81 mg PO QHS heart health 05/30/22 [History Last Taken Unknown] loratadine 10 mg tablet 10 mg PO DAILY 05/30/22 [History Last Taken Unknown] metformin 850 mg tablet 850 mg PO BID Blood Glucose 05/30/22 [History Last Taken Unknown] Allergy/AdvReac Type Severity Reaction Status Date / Time cilostazol [From Pletal] Allergy Unknown Verified 06/02/22 22:07 felodipine Allergy Hives Verified 06/02/22 22:07 levofloxacin Allergy Hives Verified 06/02/22 22:07 Sulfa (Sulfonamide Allergy Unknown Verified 06/02/22 22:07 Antibiotics) Family History (Updated 06/03/22 @ 03:[address] Audra Schneider MD) Father Diabetes Cancer Prostate cancer Mother Dementia Surgical History H/O aortic aneurysm repair (11/1998) History of coronary artery stent placement (02/17/08) History of endarterectomy (07/2018) History of hernia repair History of left heart catheterization (03/2014) History of transurethral resection of prostate History of vascular surgery (08/2018) Social History household members: spouse Smoking Status: Former smoker how long ago did patient quit smokin years ago alcohol intake: current alcohol intake frequency: holidays/special occasions only details: hx of alcohol abuse substance use type: does not use caffeine: No what type of physical activity do you participate in: other details: Nustep frequency: 5-6 times per week duration: 15-30 minutes/day seatbelt use: always do you feel safe at home: Yes ROS ROS Narrative Admission Review of Systems: CONSTITUTIONAL: No weight loss, fever, chills, + weakness or fatigue. HEENT: Eyes: No visual loss, blurred vision, double vision or yellow sclerae. Ears, Nose, Throat: No hearing loss, sneezing, congestion, runny nose or sore throat. SKIN: No rash or itching, lesions, wounds. CARDIOVASCULAR: + chest pain, chest pressure or chest discomfort, No palpitati ons, edema, orthopnea, syncopal events. RESPIRATORY: + shortness of breath, cough with productive sputum, occasional wheezing, No hemoptysis. GASTROINTESTINAL: No anorexia, nausea, vomiting or diarrhea, abdominal pain, melena, BRBPR. GENITOURINARY: No dysuria, frequency, urgency or retention. NEUROLOGICAL: No headache, dizziness, syncope, paralysis, ataxia, numbness or tingling in the extremities, focal weakness, change in bowel or bladder control, seizure. MUSCULOSKELETAL: + muscle, back pain, joint pain or stiffness. HEMATOLOGIC: + anemia, bleeding or bruising. LYMPHATICS: No enlarged nodes. No history of splenectomy. PSYCHIATRIC: No history of depression or anxiety. ENDOCRINOLOGIC: No reports of sweating, cold or heat intolerance. No polyuria or polydipsia. ALLERGIES: + history of hives. Vital Signs Vital Signs Vital Signs: 06/02/22 22:03 06/02/22 22:17 06/02/22 22:52 Temperature 98.1 F Temperature Source Temporal Pulse Rate 83 Respiratory Rate 16 Respiratory Effort Normal Non-Labored Blood Pressure 182/62 H Blood Pressure Mean 102 Pulse Ox 96 Oxygen Delivery Method Room Air Room Air 06/02/22 22:56 06/02/22 23:03 06/03/22 00:16 Temperature Temperature Source Pulse Rate 71 65 65 Respiratory Rate 18 18 Respiratory Effort Blood Pressure 164/64 H 166/74 H 176/69 H Blood Pressure Mean 104 104 Pulse Ox 95 97 Oxygen Delivery Method Room Air Room Air 06/03/22 01:15 06/03/22 02:00 Temperature Temperature Source Pulse Rate 70 84 Respiratory Rate 18 18 Respiratory Effort Blood Pressure 178/81 H 168/90 H Blood Pressure Mean 113 116 Pulse Ox 97 94 Oxygen Delivery Method Room Air Room Air Weight Weight: 193 lb Body Mass Index (BMI) 27.6 Physical Exam Narrative Physical Examination: General: Awake, alert, oriented x 3 and cooperative, seated upright in the ED bed, fatigued appearing, denies any chest discomfort at this time. Skin: Normal color, normal turgor, no icterus, no cyanosis. HEENT: AT/NC, EOMI, PERRLA, mildly dry MM, no carotid bruits or JVD noted. Lungs: Mildly diminished, greater bases, occasional end expiratory wheeze, coughing during evaluation noted, no specific rhonchi or rales, mildly increased respiratory rate with oxygenation during evaluation 93 to 94% on room air. Heart: Currently regular rate and rhythm; no gallop, rub audible. Abdomen: Soft, overweight, NTTP, ND, distant normal BS, no HSM. Extremities: No cyanosis, clubbing, or edema. Neurological: Patient awake, alert, oriented as noted, cognitive function appears baseline intact; pupils equally reactive to light and accommodation, cranial nerves II-XII grossly normal, moving all 4 extremities, no focal deficits, strength moderately global decrease secondary to acute presentation. Psychiatric: Affect appears fatigued, no acute evidence of depressive or anxiety feelings. Results Lab / Micro Data Result Diagrams: 06/02/22 22:24 06/02/22 22:24 Labs: Laboratory Results - last 24 hr 06/02/22 22:24: WBC 9.4, RBC 3.48 L, Hgb 9.2 L, Hct 30.0 L, MCV 86.2, MCH 26.4 L , MCHC 30.7 L, RDW Std Deviation 45.1 H, RDW Coeff of Justin 14.3, Plt Count 302, MPV 11.6, Immature Gran % (Auto) 0.500, Neut % (Auto) 65.7, Lymph % (Auto) 22.6, Alexander % (Auto) 8.4, Eos % (Auto) 2.6, Baso % (Auto) 0.2, Absolute Neuts (auto) 6.2, Absolute Lymphs (auto) 2.12, Nucleated RBC % 0 06/02/22 22:24: APTT 35.3 06/02/22 22:24: Sodium 135 L, Potassium 3.6, Chloride 103, Carbon Dioxide 23.0, Anion Gap 9, BUN 23 H, Creatinine 1.58 H, Estim Creat Clear Calc 35.94, Est GFR (MDRD) Af Amer 54 L, Est GFR (MDRD) Non-Af 45 L, BUN/Creatinine Ratio 14.6, Glucose 199 H, Calcium 8.9, Troponin I High Sens 34 06/03/22 00:37: Troponin I High Sens 43 Radiology Impression Chest X-Ray 06/02/22 22:50 IMPRESSION: New right upper lobe pneumonia. Follow to resolution. Electronically Signed: Ba Benoit MD at 23:12 EDT , Assessment & Plan Assessment/Plan (1) Unstable angina: PLAN: Plan The patient is an 86 y/o M w/ PMHx: CAD s/p PCI x 9, MARIXA on BIPAP q HS, Former tobacco use, Chronic anemia, Hx AAA s/p repair 1998, Asthma/COPD w/ Allergic Rhinitis, CKD stage IIIb, Diabetes mellitus type II, HTN, HLD, GERD, RLS, PVD who presents to the [facility] ED on 06/02/22 with history of onset chest discomfort specifically to the right chest with radiation to bilateral upper extremity and jaw regions described as a burning sensation, ongoing with self administration of nitroglycerin prior to ED presentation with no associated nausea, emesis, dyspnea or diaphoresis reporting the episode to have occurred approximately 30 minutes to 1 hour prior to ED arrival in addition to a several day history of increased dyspnea, worse with exertion with productive cough of yellow sputum wi th increased cough above baseline with increased fatigue and malaise as well. #1. RUL Community Acquired Pneumonia: Will admit to PCU given #2, maintain on oxygen with wean as tolerated to room air, continue ATC duonebs, PRN albuterol, maintained on IV Rocephin and Azithromycin, HOB, IS parameters w/ pending sputum cultures, respiratory viral panel, and urine antigens. Procalcitonin requested. COVID PCR also requested given timeline to be cautious. Given location will also to be cautious request ST evaluation. #2. Chest Pain, potentially secondary to #1 with EKG changes as noted concerni ng for ACS: EKG w/ sinus rhythm with ST depression less than 1 mm inferior laterally without ST elevations which is new from prior with repeat EKG following chest pain-free status with near complete resolution with concern for potential unstable angina as etiology of her dynamic changes, CXR w/ evidence new right upper lobe pneumonia, initial trop 34 which is similar to prior with repeat delta of 43. Will place on a monitored bed to assure no acute myocardial infarction with serial cardiac enzymes and EKGs. FLP in AM. Magnesium level requested. We will continue heparin drip initiated in the ED as well as nitroglycerin paste. Will continue treatment for acute presentation # 1. ASA, NG, morphine. Cardiology consulted, pending. #3. CAD: Status post prior PCI x9, will continue patient aspirin, statin, Coreg, not on SILVANO inhibitor/ARB likely secondary to underlying renal disease. #4. Chronic COPD/asthma with allergic rhinitis: Will maintain on oxygen with wean as tolerated to room air hold home inhalers in the interim transition to ATC duonebs, PRN albuterol, HOB, IS parameters, continue patient home montelukast regimen. #5. Hypertension: Continue home regimen including Coreg, Lasix, hydralazine, isosorbide with hold parameters as needed, PRN hydralazine. #6. Hyperlipidemia: Continue home statin regimen. AM FLP. #7. Diabetes mellitus type II: Hold oral home regimen, ADA diet until n.p.o. status, accu checks w/ ISS. #8. Chronic Kidney Disease Stage IIIb: Admission BUN/Cr 23/1.58, baseline renal function primarily 1.3-1.5, repeat BMP in AM. #9. Chronic normocytic anemia: Admission hemoglobin 9.2, more recent baseline appears 9-10, stable, trend although has decreased since 2019. #10. Restless leg syndrome: We will continue patient home Requip regimen. #11. Former tobacco use: Encourage continued tobacco cessation. #12. History AAA: Status post repair 1998. #13. GERD: We will continue patient on PPI. #14. MARIXA: BiPAP nightly. #15. DVT prophylaxis: SCDs, heparin drip. #16. CODE status: Patient TOMASA is his who is present and living will is currently in place. Discussed CODE status at length including difference between FULL code, DNR-CCA and DNR-CC status. Following discussions about the differences in these status, requested DNR-CCA, no intubation status. Advanced Care Planning Face to Face Time: 16 minutes. Charges/Coding Visit Charges OBSV E&M: 65066 Initial observation care L3 Procedures Hospitalists Procedures: 83212 Advncd Care Plan 30 Min
--- NOTE | 2022-06-03 02:17 | EKG12_ITS ---
Test Reason : CP ADMIT Blood Pressure : / mmHG Vent. Rate : 087 BPM Atrial Rate : 085 BPM P-R Int : 224 ms QRS Dur : 092 ms QT Int : 392 ms P-R-T Axes : -72 061 053 degrees QTc Int : 471 ms Undetermined rhythm : Consider Atrial Fibrillation ST & T wave abnormality, consider lateral ischemia Abnormal ECG Confirmed by JUAN SMITH, ANA ([id number]), telegraph editor LASHANDA GARNETT ([id number]) on 06/05/2022 7:59:22 AM Referred By: Confirmed By:ANA MARTINEZ MD
[2022-06-03] MEDS: Heparin Injection (Vial) 5,000 UNIT/ML VIAL 4000 UNIT IV (02:39)
[2022-06-03] MEDS: HEPARIN/D5w 25,000 UNITS 25,000 UNITS/250 ML IV.SOLN. 10 UNITS CONT INF ×2 (02:39→03:48)
[2022-06-03 02:55] LABS: Magnesium 1.4 mg/dL (1.6-2.6)
[2022-06-03 03:12] LABS: International Normalized Ratio 1.3; Prothrombin Time (Protime)PT. 15.4 SECONDS (11.7-14.9)
[2022-06-03 03:13] LABS: Partial Thromboplast Time 28.4 Seconds (24.1-36.2)
[2022-06-03] MEDS: 0.9% Normal Saline 1,000 ML 100 ML IV (03:48)
[2022-06-03] MEDS: hydrALAZINE 20 MG/ML Vial 10 MG IV (03:49)
[2022-06-03] MEDS: 0.9% Saline Lock 10 ML Syringe IV ×2 (03:49→21:37)
[2022-06-03] MEDS: Ceftriaxone 1 GM/50 ML BAG IV ×2 (04:33→21:22)
[2022-06-03 04:52] LABS: Absolute Lymphocyte Count 2.13 X10^3/uL (0.83-4.51); Absolute Neutrophil Count 4.5 X10^3/uL (2.0-7.7); Basophil# 0.04 X10^3/uL; Basophil% 0.5 % (0-1); Eosinophil# 0.21 X10^3/uL; Eosinophils% 2.7 % (0-5); Hematocrit 27.5 % (40-54); Hemoglobin 8.8 g/dL (13.0-16.5); Lymphocyte # 2.13 X10^3/ul (0.83-4.51); Lymphocyte % 27.5 % (19-41); Mean Corpuscular Volume 87.6 fL (80-94); Mean Platelet Vol. 11.1 fl (6.2-12.0); Monocyte# 0.81 X10^3/uL; Monocyte% 10.5 % (0-10); NRBC Flagged by Analyzer 0 % (0-5); Neutrophil # 4.53 X10^3/uL (2.7-7.7); Neutrophil % 58.4 % (47-70); Platelet Count 287 K/mm3 (150-450); RBC Distribution Width CV 14.2 % (11.6-14.6); Red Blood Count 3.14 M/mm3 (4.6-6.2); White Blood Count 7.8 K/mm3 (4.4-11.0)
[2022-06-03 05:32] LABS: Troponin-I HS 81 pg/mL (3.0-78.0)
[2022-06-03 05:39] LABS: ALB/GLOB Ratio 0.6 RATIO (0.9-2.4); AST(SGOT) 29 U/L (15-37); Alanine Aminotransfer ALT/SGPT 34 U/L (16-61); Albumin, Serum 2.6 g/dL (3.2-5.0); Alkaline Phosphatase 52 U/L (45-117); Anion Gap 9 (5-15); BUN 20 mg/dL (7-18); BUN/Creat Ratio 14.6 RATIO (10-20); Calcium,Total 8.3 mg/dL (8.5-10.1); Chloride 106 mmol/L (98-107); Cholesterol 105 mg/dL (200); Creatinine, Serum 1.37 mg/dL (0.70-1.30); EST Glomerular Filtration Rate 53 mL/min (>60); Est Glom Filt Rate - Afr Amer 64 mL/min (>60); Estimated Creatinine Clearance 41.44 ml/min; Globulin 4.1 g/dL (2.2-4.2); Glucose 135 mg/dL (74-106); High Density Lipoprotein 30 mg/dL; Potassium 3.5 mmol/L (3.5-5.1); Protein, Total 6.7 g/dL (6.4-8.2); Sodium Level 137 mmol/L (136-145); Triglycerides 67 mg/dL; Very Low Density Lipoprotein 13 mg/dL (5-40)
[2022-06-03] MEDS: Nitroglycerin Oint 1 INCH PACKET TD (06:23)
[2022-06-03] MEDS: hydrALAZINE 50 MG Tablet 100 MG PO ×3 (06:24→21:38)
[2022-06-03] MEDS: Pramipexole Di-HCl 0.25 MG Tablet PO ×3 (06:24→21:38)
[2022-06-03] MEDS: Insulin Lispro 100 UNIT/ML INSULN.PEN SC ×3 (06:32→21:37)
--- NOTE | 2022-06-03 06:35 | NURSING ---
called respiratory to give pt a treatment. pt states its hard to breath, he has to force breath, wheezing. o2 is on at 2l nc call light with in reach will monitor
[2022-06-03] MEDS: Ipratropium/Albuterol Sulfate 3 ML AMPUL.NEB INHALATION ×3 (06:50→19:59)
[2022-06-03 06:56] LABS: Bedside Glucose 175 mg/dL (74-106)
[2022-06-03] MEDS: Furosemide 40 MG Tablet PO (08:34)
[2022-06-03] MEDS: Pantoprazole Sodium 40 MG Tablet PO (08:34)
[2022-06-03] MEDS: Isosorbide Mononitrate 30 MG Tablet PO (08:34)
[2022-06-03] MEDS: Loratadine 10 MG Tablet PO (08:34)
[2022-06-03] MEDS: Carvedilol 25 MG Tablet PO ×2 (08:34→21:38)
--- NOTE | 2022-06-03 09:21 | CON.PCM.CA_ITS ---
Assessment & Plan Assessment/Plan (1) Chest pain: PLAN: Chest pain resolved. Patient's troponin did go up mildly. He appears to have pneumonia and slight worsening of his anemia as well. He may have progression of his underlying CAD. However at this time I think it will be reasonable to manage this medically till his anemia issue is sorted out so that if he needs PCI and antiplatelet therapy we can proceed with it. Also the pain is right-sided and he does have right-sided pneumonia. Prior to PCI in the past he did not have this kind of chest pain. His chest pain however does get better with nitroglycerin. Overall recommend continuing heparin for now, working up his anemia, treating the pneumonia and will consider further work-up in the form of coronary angiography after that. (2) Pneumonia: HPI Consult Data Date of Consult: 06/03/22 HPI Narrative Reason for Consultation: Chest pain HPI Narrative: DESIREE ROSAS, is a 86 M who presents with right-sided chest pain. It has no clear aggravating or relieving factors. This has been going on and off for a long time. This time it was more severe and he came to the emergency room. Patient has history of coronary artery disease status post PCI in the past. He had a stress test in November of this year that was negative for ischemia. He also has chronic renal insufficiency, chronic anemia which appears to be worse than baseline at this time. He was also found to have right-sided infiltrate and is being treated for pneumonia. Review of systems: All systems reviewed. All else is negative except that in HPI [facility] Medical History (Updated 06/03/22 @ 09:[address] Brandon Mar MD) Abdominal aortic aneurysm (AAA) Acute cystitis with hematuria Ambulates with cane Anemia Aortic aneurysm Arthritis Asthma Atherosclerotic heart disease of [place] coronary artery without angina pectoris Back pain BiPAP (biphasic positive airway pressure) dependence Cancer Cardiology follow-up encounter Carotid bruit Chest pain Chronic constipation Chronic cough COPD (chronic obstructive pulmonary disease) Daytime hypersomnia DDD (degenerative disc disease), lumbar Diabetes DM2 (diabetes mellitus, type 2) Dyslipidemia Easy bruising Essential (primary) hypertension Former smoker Gastric reflux High cholesterol History of echocardiogram History of edema History of heart attack History of hiatal hernia History of irregular heartbeat History of pain when walking History of renal disease History of steroid therapy History of stress test HLD (hyperlipidemia) Hoarseness Hypertension Injury of back Kidney stone Leg cramps MARIXA (obstructive sleep apnea) Overweight Patellar bursitis of right knee Peripheral vascular disease of extremity with claudication Pre-syncope PVD (peripheral vascular disease) Rectus sheath hematoma Recurrent urinary tract infection Restless legs Restless legs syndrome Seasonal allergies Shortness of breath on exertion Sleep apnea Somatic dysfunction of pelvic region Stage 3b chronic kidney disease Walker as ambulation aid Wears dentures Wears glasses Wears hearing aid Home Medications pantoprazole 40 mg tablet,delayed release 40 mg PO DAILY reflux 03/28/14 [History Last Taken 03/09/22] ammonium lactate 12 % lotion 1 applic topical QD-BID PRN dry skin 02/06/18 [History Last Taken Unknown] triamcinolone acetonide 55 mcg nasal spray aerosol (Nasacort) 2 spray intranasal DAILY allergies 09/04/18 [History Last Taken 03/09/22] handicap placcard #1 ea 09/28/19 [Rx Last Taken Unknown] ascorbate calcium (vitamin C) 500 mg tablet 500 mg PO DAILY Bone strength 05/03/20 [History Last Taken 03/09/22] coenzyme Q10 100 mg capsule (Co Q-10) 100 mg PO DAILY 05/03/20 [History Last Taken Unknown] cholecalciferol (vitamin D3) 100 mcg (4,000 unit) tablet 100 mcg PO DAILY 11/03/20 [History Last Taken Unknown] spacer #1 ea 01/12/21 [Rx Last Taken Unknown] nitroglycerin 0.4 mg sublingual tablet (Nitrostat) 0.4 mg sublingual Q5-15M PRN chest pain #25 tabs 11/01/21 [Rx Last Taken Unknown] albuterol sulfate 90 mcg/actuation aerosol inhaler (Ventolin HFA) 2 inh inha lation Q4H PRN shortness of breath or wheezing #18 grams 11/27/21 [Rx Last Taken Unknown] atorvastatin 40 mg tablet 40 mg PO QODAY cholesterol #45 tabs 02/20/22 [Rx Last Taken 03/08/22] ipratropium 0.5 mg-albuterol 3 mg (2.5 mg base)/3 mL nebulization soln 3 ml inhalation 4X/DAY PRN PRN shortness of breath or wheezing #90 mL 02/21/22 [Rx Last Taken 03/09/22] ipratropium bromide 42 mcg (0.06 %) nasal spray 2 spray intranasal TID-QID PRN allergy symptoms #15 mL 02/21/22 [Rx Last Taken Unknown] budesonide-formoterol HFA 160 mcg-4.5 mcg/actuation aerosol inhaler (Symbicort) 2 puff inhalation BID Respitory 03/09/22 [History Last Taken 03/06/22] montelukast 10 mg tablet 10 mg PO QHS Respiratory 03/09/22 [History Last Taken 03/08/22] acetaminophen 500 mg tablet 1,000 mg PO Q6H PRN PRN Pain Score 1-10 #0 tabs 03/19/22 [Rx Last Taken Unknown] ropinirole 0.5 mg tablet 0.5 mg PO TID 04/22/22 [History Last Taken Unknown] carvedilol 25 mg tablet 25 mg PO BID #180 tabs 05/22/22 [Rx Last Taken Unknown] furosemide 40 mg tablet 40 mg PO DAILY #90 tabs 05/22/22 [Rx Last Taken Unknown] hydralazine 100 mg tablet 100 mg PO TID Disreguard previous RX: dose changed #360 tabs 05/22/22 [Rx Last Taken Unknown] isosorbide mononitrate 30 mg tablet,extended release 24 hr 30 mg PO DAILY 05/22/22 [History Last Taken Unknown] aspirin 81 mg chewable tablet 81 mg PO QHS heart health 05/30/22 [History Last Taken Unknown] loratadine 10 mg tablet 10 mg PO DAILY 05/30/22 [History Last Taken Unknown] metformin 850 mg tablet 850 mg PO BID Blood Glucose 05/30/22 [History Last Taken Unknown] Allergy/AdvReac Type Severity Reaction Status Date / Time cilostazol [From Pletal] Allergy Unknown Verified 06/02/22 22:07 felodipine Allergy Hives Verified 06/02/22 22:07 levofloxacin Allergy Hives Verified 06/02/22 22:07 Sulfa (Sulfonamide Allergy Unknown Verified 06/02/22 22:07 Antibiotics) Family History (Updated 06/03/22 @ 03:[address] Audra Schneider MD) Father Diabetes Cancer Prostate cancer Mother Dementia Surgical History H/O aortic aneurysm repair (11/1998) History of coronary artery stent placement (02/17/08) History of endarterectomy (07/2018) History of hernia repair History of left heart catheterization (03/2014) History of transurethral resection of prostate History of vascular surgery (08/2018) Social History household members: spouse Smoking Status: Former smoker how long ago did patient quit smokin years ago alcohol intake: current alcohol intake frequency: holidays/special occasions only details: hx of alcohol abuse substance use type: does not use caffeine: No what type of physical activity do you participate in: other details: Nustep frequency: 5-6 times per week duration: 15-30 minutes/day seatbelt use: always do you feel safe at home: Yes Physical Exam Const alert, oriented x3 and no apparent distress HEENT normocephalic Eyes no scleral icterus Resp Resp Narrative: Right-sided crackles Psych mental status grossly normal Risk Stratification Risk Stratification Applicable: No Charges/Coding Visit Charges Inpatient E&M: 52728 Init Hosp L2 Objective Data Vital Signs: Vital Signs Temp Pulse Resp BP Pulse Ox O2 Del Method O2 Flow Rate 98.3 F 68 20 H 174/85 H 95 Nasal Cannula 2 06/03/22 08:27 06/03/22 08:27 06/03/22 08:27 06/03/22 08:27 06/03/22 08:27 06/03/22 08:27 06/03/22 08:27 Oxygen Flow Rate (L/min) 2 Oxygen Delivery Method Nasal Cannula Weight: 193 lb Body Mass Index (BMI) 27.6 Intake & Output: Intake and Output for Last 24 Hours 06/01/22 06/02/22 06/03/22 23:59 23:59 23:59 Intake Total 1610.17 / 1610.17 Output Total 400 / 400 Balance 1210.17 / 1210.17 Lab / Micro Data Result Diagrams: 06/03/22 04:35 06/03/22 04:35 Labs: Laboratory Results - last 24 hr 06/02/22 22:24: WBC 9.4, RBC 3.48 L, Hgb 9.2 L, Hct 30.0 L, MCV 86.2, MCH 26.4 L , MCHC 30.7 L, RDW Std Deviation 45.1 H, RDW Coeff of Justin 14.3, Plt Count 302, MPV 11.6, Immature Gran % (Auto) 0.500, Neut % (Auto) 65.7, Lymph % (Auto) 22.6, [place] % (Auto) 8.4, Eos % (Auto) 2.6, Baso % (Auto) 0.2, Absolute Neuts (auto) 6.2, Absolute Lymphs (auto) 2.12, Nucleated RBC % 0 06/02/22 22:24: APTT 35.3 06/02/22 22:24: Sodium 135 L, Potassium 3.6, Chloride 103, Carbon Dioxide 23.0, Anion Gap 9, BUN 23 H, Creatinine 1.58 H, Estim Creat Clear Calc 35.94, Est GFR (MDRD) Af Amer 54 L, Est GFR (MDRD) Non-Af 45 L, BUN/Creatinine Ratio 14.6, Glucose 199 H, Calcium 8.9, Troponin I High Sens 34 06/03/22 00:37: Troponin I High Sens 43 06/03/22 02:05: PT Cancelled, INR Cancelled, APTT Cancelled 06/03/22 02:33: Magnesium 1.4 L 06/03/22 02:33: Procalcitonin 0.10 H 06/03/22 02:33: PT 15.4 H, INR 1.3, APTT 28.4 06/03/22 02:38: COVID-19 (GARRETT) Not Detected 06/03/22 04:35: WBC 7.8, RBC 3.14 L, Hgb 8.8 L, Hct 27.5 L, MCV 87.6, MCH 28.0, MCHC 32.0, RDW Std Deviation 45.0 H, RDW Coeff of Justin 14.2, Plt Count 287, MPV 11.1, Immature Gran % (Auto) 0.400, Neut % (Auto) 58.4, Lymph % (Auto) 27.5, [place] % (Auto) 10.5 H, Eos % (Auto) 2.7, Baso % (Auto) 0.5, Absolute Neuts (auto) 4.5, Absolute Lymphs (auto) 2.13, Nucleated RBC % 0 06/03/22 04:35: Sodium 137, Potassium 3.5, Chloride 106, Carbon Dioxide 22.0, Anion Gap 9, BUN 20 H, Creatinine 1.37 H, Estim Creat Clear Calc 41.44, Est GFR (MDRD) Af Amer 64, Est GFR (MDRD) Non-Af 53 L, BUN/Creatinine Ratio 14.6, G lucose 135 H, Calcium 8.3 L, Total Bilirubin 0.40, AST 29, ALT 34, Alkaline Phosphatase 52, Total Protein 6.7, Albumin 2.6 L, Globulin 4.1, Albumin/Globulin Ratio 0.6 L, Triglycerides 67, Cholesterol 105, LDL Cholesterol 62, VLDL Cholesterol 13, HDL Cholesterol 30 L 06/03/22 04:35: Troponin I High Sens 81 H 06/03/22 06:32: POC Glucose 175 H Micro: Microbiology 06/03/22 02:38 Mucosa - Nasopharyngeal Respiratory Panel (PCR) - Final 06/03/22 03:40 Urine, Random Legionella Antigen - Final 06/03/22 03:40 Urine, Random Streptococcus pneumoniae Antigen (M - Final Cardiology Labs/Tests 06/02/22 22:24: WBC 9.4, RBC 3.48 L, Hgb 9.2 L, Hct 30.0 L, MCV 86.2, MCH 26.4 L , MCHC 30.7 L, Plt Count 302, MPV 11.6, Immature Gran % (Auto) 0.500, Neut % (Auto) 65.7, Lymph % (Auto) 22.6, [place] % (Auto) 8.4, Eos % (Auto) 2.6, Baso % (Auto) 0.2, Absolute Neuts (auto) 6.2, Nucleated RBC % 0 06/02/22 22:24: APTT 35.3 06/02/22 22:24: Sodium 135 L, Potassium 3.6, Chloride 103, Carbon Dioxide 23.0, Anion Gap 9, BUN 23 H, Creatinine 1.58 H, Est GFR (MDRD) Af Amer 54 L, Est GFR (MDRD) Non-Af 45 L, BUN/Creatinine Ratio 14.6, Glucose 199 H, Calcium 8.9 06/03/22 02:05: PT Cancelled, INR Cancelled, APTT Cancelled 06/03/22 02:33: Magnesium 1.4 L 06/03/22 02:33: PT 15.4 H, INR 1.3, APTT 28.4 06/03/22 04:35: WBC 7.8, RBC 3.14 L, Hgb 8.8 L, Hct 27.5 L, MCV 87.6, MCH 28.0, MCHC 32.0, Plt Count 287, MPV 11.1, Immature Gran % (Auto) 0.400, Neut % (Auto) 58.4, Lymph % (Auto) 27.5, [place] % (Auto) 10.5 H, Eos % (Auto) 2.7, Baso % (Auto) 0.5, Absolute Neuts (auto) 4.5, Nucleated RBC % 0 06/03/22 04:35: Sodium 137, Potassium 3.5, Chloride 106, Carbon Dioxide 22.0, Anion Gap 9, BUN 20 H, Creatinine 1.37 H, Est GFR (MDRD) Af Amer 64, Est GFR (MDRD) Non-Af 53 L, BUN/Creatinine Ratio 14.6, Glucose 135 H, Calcium 8.3 L, Total Bilirubin 0.40, Triglycerides 67, Cholesterol 105, LDL Cholesterol 62, VLDL Cholesterol 13, HDL Cholesterol 30 L Rhythm: EKG: ECHO: Stress Test: Cardiac Cath: PCI: CT Surgery: Holter monitor: EPS: PPM: CXR: Chest CT Scan: Radiography Diagnostic Testing: Radiology Impression Chest X-Ray 06/02/22 22:50 IMPRESSION: New right upper lobe pneumonia. Follow to resolution. Electronically Signed: Ba Benoit MD at 23:12 EDT Reading Location ID and State: [place] / [place] Tel , Service support ,
[2022-06-03 09:27] LABS: Partial Thromboplast Time 40.1 Seconds (24.1-36.2)
--- NOTE | 2022-06-03 11:13 | PN.HOSP_ITS ---
Documented by User: Bijal Mccurdy NP, LABEL CUTTER-C 06/03/22 11:37 Subjective Subjective Patient seen and examined. Denies further chest pain. Reports he feels short of breath. Denies cough, fever, chills. Objective Data Objective Data Vital Signs: Vital Signs Temp Pulse Resp BP Pulse Ox O2 Del Method O2 Flow Rate 98.3 F 68 20 H 174/85 H 95 Nasal Cannula 2 06/03/22 08:27 06/03/22 08:27 06/03/22 08:27 06/03/22 08:27 06/03/22 08:27 06/03/22 08:27 06/03/22 08:27 Oxygen Flow Rate (L/min) 2 Oxygen Delivery Method Nasal Cannula Weight: 193 lb Body Mass Index (BMI) 27.6 Intake & Output: Intake and Output for Last 24 Hours 06/01/22 06/02/22 06/03/22 23:59 23:59 23:59 Intake Total 1714.17 / 1714.17 Output Total 400 / 400 Balance 1314.17 / 1314.17 Lab / Micro Data Result Diagrams: 06/03/22 04:35 06/03/22 04:35 Labs: Laboratory Results - last 24 hr 06/02/22 22:24: WBC 9.4, RBC 3.48 L, Hgb 9.2 L, Hct 30.0 L, MCV 86.2, MCH 26.4 L , MCHC 30.7 L, RDW Std Deviation 45.1 H, RDW Coeff of Justin 14.3, Plt Count 302, MPV 11.6, Immature Gran % (Auto) 0.500, Neut % (Auto) 65.7, Lymph % (Auto) 22.6, [place] % (Auto) 8.4, Eos % (Auto) 2.6, Baso % (Auto) 0.2, Absolute Neuts (auto) 6.2, Absolute Lymphs (auto) 2.12, Nucleated RBC % 0 06/02/22 22:24: APTT 35.3 06/02/22 22:24: Sodium 135 L, Potassium 3.6, Chloride 103, Carbon Dioxide 23.0, Anion Gap 9, BUN 23 H, Creatinine 1.58 H, Estim Creat Clear Calc 35.94, Est GFR (MDRD) Af Amer 54 L, Est GFR (MDRD) Non-Af 45 L, BUN/Creatinine Ratio 14.6, Glucose 199 H, Calcium 8.9, Troponin I High Sens 34 06/03/22 00:37: Troponin I High Sens 43 06/03/22 02:05: PT Cancelled, INR Cancelled, APTT Cancelled 06/03/22 02:33: Magnesium 1.4 L 06/03/22 02:33: Procalcitonin 0.10 H 06/03/22 02:33: PT 15.4 H, INR 1.3, APTT 28.4 06/03/22 02:38: COVID-19 (GARRETT) Not Detected 06/03/22 04:35: WBC 7.8, RBC 3.14 L, Hgb 8.8 L, Hct 27.5 L, MCV 87.6, MCH 28.0, MCHC 32.0, RDW Std Deviation 45.0 H, RDW Coeff of Justin 14.2, Plt Count 287, MPV 11.1, Immature Gran % (Auto) 0.400, Neut % (Auto) 58.4, Lymph % (Auto) 27.5, [place] % (Auto) 10.5 H, Eos % (Auto) 2.7, Baso % (Auto) 0.5, Absolute Neuts (auto) 4.5, Absolute Lymphs (auto) 2.13, Nucleated RBC % 0 06/03/22 04:35: Sodium 137, Potassium 3.5, Chloride 106, Carbon Dioxide 22.0, Anion Gap 9, BUN 20 H, Creatinine 1.37 H, Estim Creat Clear Calc 41.44, Est GFR (MDRD) Af Amer 64, Est GFR (MDRD) Non-Af 53 L, BUN/Creatinine Ratio 14.6, Glucose 135 H, Calcium 8.3 L, Total Bilirubin 0.40, AST 29, ALT 34, Alkaline Phosphatase 52, Total Protein 6.7, Albumin 2.6 L, Globulin 4.1, Albumin/Globulin Ratio 0.6 L, Triglycerides 67, Cholesterol 105, LDL Cholesterol 62, VLDL Cholesterol 13, HDL Cholesterol 30 L 06/03/22 04:35: Troponin I High Sens 81 H 06/03/22 06:32: POC Glucose 175 H Micro: Microbiology 06/03/22 02:38 Mucosa - Nasopharyngeal Respiratory Panel (PCR) - Final 06/03/22 03:40 Urine, Random Legionella Antigen - Final 06/03/22 03:40 Urine, Random Streptococcus pneumoniae Antigen (M - Final Radiography Diagnostic Testing: Radiology Impression Chest X-Ray 06/02/22 22:50 IMPRESSION: New right upper lobe pneumonia. Follow to resolution. Electronically Signed: Ba Benoit MD at 23:12 EDT , Physical Exam Const alert and oriented x3 HEENT normocephalic and moist oral mucous membranes Eyes PERRL, EOMs intact bilaterally and conjunctivae normal Neck no lymphadenopathy Resp clear to auscultation bilaterally Auscultation: diminished lung sounds Cardio regular rate, regular rhythm and no murmurs Peripheral Pulses: pulses 2+ throughout GI normal to inspection, nondistended, normoactive bowel sounds, non-tender and non-distended Extremity normal to inspection General Extremity: edema bilateral lower extremity Details: mild Skin no rashes or lesions noted Lesions: no lesions Rashes: no rashes Trauma: no lacerations or abrasions Neuro CN's II-XII intact bilaterally, no focal motor deficits, no sensory deficits noted and deep tendon reflexes 2+ bilaterally Psych mental status grossly normal and affect normal Assessment & Plan Assessment/Plan (1) Pneumonia: (2) Chest pain: PLAN: Plan 1. Right upper lobe community-acquired pneumonia-patient on 2 L nasal cannula however not documented to be hypoxic. Wean oxygen as tolerated. IV azithromycin and IV Rocephin. Sputum culture ordered. Albuterol and DuoNeb aerosols. 2. Chest pain, EKG changes-cardiology consulted. Continue medical management. Pending improvement of #1, consider further coronary work-up. 3. Acute on chronic normocytic anemia-mildly reduced from baseline. Check stool for occult blood, iron studies. Trend CBC. 4. CAD with history of PCI-continue aspirin, statin, carvedilol, isosorbide. 5. Chronic COPD/asthma-albuterol and DuoNeb aerosols. 6. Hypertension-stable, continue Coreg, Lasix, hydralazine, isosorbide hyperlipidemia. 7. Hyperlipidemia-continue statin. 8. Type 2 diabetes [id number] with sliding scale insulin. 9. Chronic kidney disease stage IIIb-appears at baseline. 10. Restless leg syndrome-continue Requip. 11. Former tobacco use-encouraged cessation. 12. History of AAA-status post repair 1998. 13. GERD-continue PPI. 14. MARIXA- continue BIPAP. DVT prophylaxis-SCDs, heparin drip This patient was seen by Bijal Mccurdy NP-C under the supervision of Dr. Orantes. Time spent examining patient, reviewing data and subsequent management of care: 14 minutes Documented by User: Dr. Tracey Orantes MD 06/03/22 12:57 Objective Data Lab / Micro Data Result Diagrams: 06/03/22 04:35 06/03/22 04:35 Assessment & Plan Assessment/Plan (1) Pneumonia: (2) Chest pain: Charges/Coding Addendum Addendum: [place] seen by Bijal Mccurdy NP-C under my supervision Patient seen and examined. He had no active complaints today and had an uneventful night. He hasnt had any more chest pain. He denies any shortness of breath though he remains on 2L of oxygen. Review of systems is otherwise negative. O/E: Const alert, oriented x3 and no apparent distress General Appearance: cooperative HEENT normocephalic, head/scalp atraumatic, hearing grossly normal bilaterally and moist oral mucous membranes Eyes PERRL, EOMs intact bilaterally and conjunctivae normal Neck no lymphadenopathy, supple and no JVD Resp diminished breath sounds bibasally, on 3L of oxygen. Minimal wheezes or crackles. Cardio regular rate, regular rhythm, S1 normal heart sound, S2 normal heart sound and no murmurs GI normal to inspection, nondistended, normoactive bowel sounds and soft to palpation Extremity normal to inspection, full ROM and no clubbing, cyanosis or edema Skin no rashes or lesions noted Neuro oriented x3, CN's II-XII intact bilaterally and moves all extremities Sensorium / Orientation: awake and alert Psych affect normal Assessment and plan #Community acquired pneumonia * on ceftriaxone and azithromycin * breahting treatment with bronchodilators * sputum culture pending. Urine antigens for Strep and Legionella negative. * #Chest pain * EKG showed some st depression in hte lateral leads * chest pain hasnt recurred * troponins only minimally elevated * cardiology on board; recommends conservative management for now, though advises using heparin drip for 24 hours. * on aspirin * #CAD s/p stents x 9 * on aspirin, statin and carvedilol * REst of chronic conditions include hyperlipidemia, CKD stage IIIb, restless leg syndrome and history of abdominal aortic aneurysm as well as hypertension. Iron studies and stool for occult blood ordered for Hb of 8.8. Management as per ANNA Sanchez's notes which I have reviewed and endorsed. TOtal time I spent on care of patient today- 19 mins,with Bijal Mccurdy NP-C spending 14 mins, making a total of 33 mins. Visit Charges Inpatient E&M: 53981 Subs Hosp L2
[2022-06-03 12:15] LABS: Bedside Glucose 207 mg/dL (74-106)
[2022-06-03 12:27] LABS: Ferritin 79 ng/mL (26-388); Iron 14 ug/dL (65-175); Iron Binding Capacity,Total 245 ug/dL (250-450); PERCENT IRON SATURATION 5.7 % (15.0-55.0)
[2022-06-03] MEDS: Heparin Injection (Vial) 5,000 UNIT/ML VIAL IV ×2 (13:02→19:32)
--- NOTE | 2022-06-03 13:42 | NURSING ---
This RN called lab at 1250 about pending aPTT that was drawn this AM and still had not resulted yet, per lab she would get it in the computer. Resulted at 1300, then heparin adjusted.
[2022-06-03 16:45] LABS: Bedside Glucose 121 mg/dL (74-106)
[2022-06-03 18:58] LABS: Partial Thromboplast Time 50.7 Seconds (24.1-36.2)
[2022-06-03] MEDS: Atorvastatin Calcium 40 MG Tablet PO (21:38)
[2022-06-03] MEDS: Montelukast 10 MG Tablet PO (21:38)
[2022-06-03] MEDS: Aspirin 81 MG TAB.CHEW PO (21:38)
[2022-06-03] MEDS: Acetaminophen 325 MG Tablet 650 MG PO (21:58)
[2022-06-03 22:25] LABS: Bedside Glucose 186 mg/dL (74-106)
--- NOTE | 2022-06-03 22:54 | CPS ---
Pt brought home Cpap and it is set up and ready for pt to use.
[2022-06-03] MEDS: Albuterol 2.5 MG/3 ML VIAL.NEB. INHALATION (23:16)
[2022-06-04] VITALS (18 sets, daily range): BP systolic 147–185; BP diastolic 66–88; PULSE 57–81; RESP 16–20; TEMP 36.1–36.7; O2SAT 93–97
[2022-06-04] MEDS: HEPARIN/D5w 25,000 UNITS 25,000 UNITS/250 ML IV.SOLN. 13 UNITS CONT INF (00:18)
[2022-06-04 02:02] LABS: Absolute Lymphocyte Count 2.17 X10^3/uL (0.83-4.51); Absolute Neutrophil Count 4.1 X10^3/uL (2.0-7.7); Basophil# 0.03 X10^3/uL; Basophil% 0.4 % (0-1); Eosinophil# 0.26 X10^3/uL; Eosinophils% 3.5 % (0-5); Hematocrit 26.6 % (40-54); Hemoglobin 8.3 g/dL (13.0-16.5); Lymphocyte # 2.17 X10^3/ul (0.83-4.51); Lymphocyte % 29.3 % (19-41); Mean Corp Hgb Conc 31.2 g/dL (32-36); Mean Corpuscular Hgb 27.6 pg (27.0-32.0); Mean Corpuscular Volume 88.4 fL (80-94); Mean Platelet Vol. 11.1 fl (6.2-12.0); Monocyte# 0.81 X10^3/uL; Monocyte% 10.9 % (0-10); NRBC Flagged by Analyzer 0 % (0-5); Neutrophil # 4.11 X10^3/uL (2.7-7.7); Neutrophil % 55.5 % (47-70); Platelet Count 282 K/mm3 (150-450); RBC Distribution Width CV 14.2 % (11.6-14.6); RBC Distribution Width SD 44.4 fl (35.1-43.9); Red Blood Count 3.01 M/mm3 (4.6-6.2); White Blood Count 7.4 K/mm3 (4.4-11.0)
[2022-06-04 02:16] LABS: Partial Thromboplast Time 50.2 Seconds (24.1-36.2)
[2022-06-04 02:23] LABS: Anion Gap 6 (5-15); BUN 24 mg/dL (7-18); BUN/Creat Ratio 16.7 RATIO (10-20); Calcium,Total 8.9 mg/dL (8.5-10.1); Chloride 102 mmol/L (98-107); Creatinine, Serum 1.44 mg/dL (0.70-1.30); EST Glomerular Filtration Rate 50 mL/min (>60); Est Glom Filt Rate - Afr Amer 60 mL/min (>60); Estimated Creatinine Clearance 39.43 ml/min; Glucose 157 mg/dL (74-106); Potassium 3.9 mmol/L (3.5-5.1); Sodium Level 134 mmol/L (136-145)
[2022-06-04] MEDS: Heparin Injection (Vial) 5,000 UNIT/ML VIAL IV ×2 (02:24→08:58)
[2022-06-04] MEDS: 0.9% Saline Lock 10 ML Syringe IV ×2 (03:10→12:08)
[2022-06-04] MEDS: hydrALAZINE 20 MG/ML Vial 10 MG IV (03:10)
[2022-06-04] MEDS: hydrALAZINE 50 MG Tablet 100 MG PO ×3 (06:32→22:29)
[2022-06-04] MEDS: Pramipexole Di-HCl 0.25 MG Tablet PO ×3 (06:32→22:31)
[2022-06-04] MEDS: Insulin Lispro 100 UNIT/ML INSULN.PEN SC ×2 (06:32→11:01)
[2022-06-04] MEDS: Acetaminophen 325 MG Tablet 650 MG PO ×2 (06:44→16:12)
[2022-06-04] MEDS: Ipratropium/Albuterol Sulfate 3 ML AMPUL.NEB INHALATION ×3 (07:04→19:39)
[2022-06-04 07:21] LABS: Bedside Glucose 167 mg/dL (74-106)
[2022-06-04] MEDS: Furosemide 40 MG Tablet PO (08:12)
[2022-06-04] MEDS: Loratadine 10 MG Tablet PO (08:12)
[2022-06-04] MEDS: Isosorbide Mononitrate 30 MG Tablet PO (08:12)
[2022-06-04] MEDS: Carvedilol 25 MG Tablet PO ×2 (08:13→22:30)
[2022-06-04] MEDS: Pantoprazole Sodium 40 MG Tablet PO (08:13)
[2022-06-04] MEDS: Fluticasone 0.05% 1 SPRAY NASAL.SRY 2 SPRAY NASAL (08:13)
[2022-06-04 08:41] LABS: Partial Thromboplast Time 52.4 Seconds (24.1-36.2)
[2022-06-04 09:13] LABS: Vitamin B12 233 pg/mL (211-911)
--- NOTE | 2022-06-04 11:22 | PN.HOSP_ITS ---
Documented by User: Bijal Mccurdy NP, FREIGHT FLAGMAN-C 06/04/22 11:28 Subjective Subjective Patient seen and examined. Reports improvement in breathing. Oxygen stable on room air. Denies cough, fever, chills. Denies ongoing chest pain. Objective Data Objective Data Vital Signs: Vital Signs Temp Pulse Resp BP Pulse Ox O2 Del Method O2 Flow Rate 97.4 F L 57 L 18 147/66 H 95 Room Air 2 06/04/22 08:10 06/04/22 08:10 06/04/22 08:10 06/04/22 08:10 06/04/22 08:10 06/04/22 08:10 06/03/22 15:43 Oxygen Flow Rate (L/min) 2 Oxygen Delivery Method Room Air Weight: 193 lb Body Mass Index (BMI) 27.6 Intake & Output: Intake and Output for Last 24 Hours 06/02/22 06/03/22 06/04/22 23:59 23:59 23:59 Intake Total 3454.07 / 3454.07 481.85 / 481.85 Output Total 2150 / 2150 450 / 450 Balance 1304.07 / 1304.07 31.85 / 31.85 Lab / Micro Data Result Diagrams: 06/04/22 01:50 06/04/22 01:50 Labs: Laboratory Results - last 24 hr 06/03/22 02:33: Vitamin B12 233 06/03/22 04:35: Iron 14 L, TIBC 245 L, Iron Saturation 5.7 L, Ferritin 79, Folate 8.60 06/03/22 08:51: APTT 40.1 H 06/03/22 11:42: POC Glucose 207 H 06/03/22 15:51: POC Glucose 121 H 06/03/22 18:35: APTT 50.7 H 06/03/22 21:32: POC Glucose 186 H 06/04/22 01:50: WBC 7.4, RBC 3.01 L, Hgb 8.3 L, Hct 26.6 L, MCV 88.4, MCH 27.6, MCHC 31.2 L, RDW Std Deviation 44.4 H, RDW Coeff of Justin 14.2, Plt Count 282, MPV 11.1, Immature Gran % (Auto) 0.400, Neut % (Auto) 55.5, Lymph % (Auto) 29.3, [place] % (Auto) 10.9 H, Eos % (Auto) 3.5, Baso % (Auto) 0.4, Absolute Neuts (auto) 4.1, Absolute Lymphs (auto) 2.17, Nucleated RBC % 0 06/04/22 01:50: Sodium 134 L, Potassium 3.9, Chloride 102, Carbon Dioxide 26.0, Anion Gap 6, BUN 24 H, Creatinine 1.44 H, Estim Creat Clear Calc 39.43, Est GFR (MDRD) Af Amer 60, Est GFR (MDRD) Non-Af 50 L, BUN/Creatinine Ratio 16.7, Glucose 157 H, Calcium 8.9 06/04/22 01:50: APTT 50.2 H 06/04/22 06:29: POC Glucose 167 H 06/04/22 08:18: APTT 52.4 H Micro: Microbiology 06/03/22 04:35 Sputum, Expectorated/Coughed Gram Stain - Final 06/03/22 04:35 Sputum, Expectorated/Coughed Respiratory Culture - Preliminary 06/03/22 18:26 Stool Stool Occult Blood (YI) - Final 06/03/22 02:38 Mucosa - Nasopharyngeal Respiratory Panel (PCR) - Final 06/03/22 03:40 Urine, Random Legionella Antigen - Final 06/03/22 03:40 Urine, Random Streptococcus pneumoniae Antigen (M - Final Physical Exam Const alert and oriented x3 HEENT normocephalic and moist oral mucous membranes Eyes PERRL, EOMs intact bilaterally and conjunctivae normal Neck no lymphadenopathy Resp clear to auscultation bilaterally Auscultation: diminished lung sounds Cardio regular rate, regular rhythm and no murmurs Peripheral Pulses: pulses 2+ throughout GI normal to inspection, nondistended, normoactive bowel sounds, non-tender and non-distended Extremity normal to inspection Skin no rashes or lesions noted Lesions: no lesions Rashes: no rashes Trauma: no lacerations or abrasions Neuro CN's II-XII intact bilaterally, no focal motor deficits, no sensory deficits noted and deep tendon reflexes 2+ bilaterally Psych mental status grossly normal and affect normal Assessment & Plan Assessment/Plan (1) Chest pain: (2) Pneumonia: (3) Anemia: PLAN: Plan 1.? Right upper lobe community-acquired pneumonia-oxygen now stable on room air.? Not documented to be hypoxic. IV azithromycin and IV Rocephin.? Sputum culture pending however preliminary appears to be normal respiratory irish.? Albuterol and DuoNeb aerosols. 2. Chest pain, EKG changes-cardiology consulted. Continue medical management.? Pending improvement of #1/#3, consider further coronary work-up. 3. Acute on chronic normocytic anemia-stool negative for occult blood. Iron studies with iron deficiency. IV iron x3. GI consulted. Trend CBC. 4. CAD with history of PCI-continue aspirin, statin, carvedilol, isosorbide. 5. Chronic COPD/asthma-albuterol and DuoNeb aerosols. 6. Hypertension-stable, continue Coreg, Lasix, hydralazine, isosorbide hyperlipidemia. 7. Hyperlipidemia-continue statin. 8. Type 2 diabetes [id number] with sliding scale insulin. 9. Chronic kidney disease stage IIIb-appears at baseline. 10. Restless leg syndrome-continue Requip. 11. Former tobacco use-encouraged cessation. 12. History of AAA-status post repair 1998. 13. GERD-continue PPI. 14. MARIXA- continue BIPAP. DVT prophylaxis-SCDs, heparin drip This patient was seen by Bijal Mccurdy NP-Ayanna under the supervision of Dr. Rubi. Time spent examining patient, reviewing data and subsequent management of care: 14 minutes Documented by User: Dr. Ben Rubi, 06/04/22 13:36 Objective Data Lab / Micro Data Result Diagrams: 06/04/22 01:50 06/04/22 01:50 Assessment & Plan Assessment/Plan (1) Chest pain: (2) Pneumonia: (3) Anemia: Charges/Coding Addendum Addendum: Patient seen and examined independently. Data and vitals reviewed. I agree with the above note by the nurse practitioner. Breathing well. No acute issues at present. Physical exam: Patient is in chair, no respiratory distress, no conversational dyspnea. Heart rate regular rate and rhythm plus S1-S2 with a murmurs Rubs. Lungs Are Clear to Auscultation Bilaterally. Abdomen Is Soft Nontender Nondistended Normal Bowel Sounds. Extremities Are Any Cyanosis, Clubbing or Edema. Assessment and plan 1. suspected pneumococcal pneumonia On room air Continue with azithromycin and ceftriaxone Follow-up sputum culture 2. Acute blood anemia Hemoglobin 8.3 today and was 10.[address] Concern for GI losses GI in consult and planning on endoscopy 3. Chest pain Mildly elevated troponin of 81 Patient with known CAD with prior stent. Cannot rule out a type II event Discussed with Dr. Mar, plan for outpatient follow-up Greater than 45 minutes of which greater than 50% of time was counseling patient and his about his numerous medical issues, discussing if he were to require heart catheterization he would need his GI eval prior to doing so. Patient stated that he had an appoint with in July. I told him that he could certainly keep that appointment but it could be expedited sooner if he is in the hospital which would be prudent being that he is having apparently acute issues with that. He agreed to see Dr. Jo of gastroenterology here. Visit Charges Inpatient E&M: 91387 Subs Hosp L3
--- NOTE | 2022-06-04 11:25 | CON.PCM_ITS ---
Assessment & Plan Assessment/Plan (1) Anemia: PLAN: He will undergo an upper and lower endoscopy for evaluation of acute on chronic blood loss anemia. The differential diagnosis does include angiodysplasia, telangiectasia, peptic ulcer disease, neoplasia. He was explained alternatives, benefits, risk including and not withstanding bleeding, infection, sepsis, perforation, need for emergent surgery . He will have an ASA of 3. HPI Consult Data Date of Consult: 06/04/22 HPI Narrative Reason for Consultation: Anemia HPI Narrative: DESIREE ROSAS, is a 86 M who presented right-sided chest pain.? It has no clear aggravating or relieving factors.? This has been going on and off for a long time.? This time it was more severe and he came to the emergency room.? Patient has history of coronary artery disease status post PCI in the past.? He had a stress test in November of this year that was negative for ischemia.? He also has chronic renal insufficiency, chronic anemia which appears to be worse than baseline at this time.? He was also found to have right-sided infiltrate and is being treated for pneumonia. ED included T98.1, heart rate 83, BP initially 182/62 with most recent repeat 166/74, respiratory rate 16, 96% on room air, CBC with WC 9.4, hemoglobin 9.2, MCV 86.2, platelet 302 without marked shift, PTT 35.3, BMP with sodium 135, BUN/creat 23/1.58, glucose 199, troponin initial 34 similar to prior with repeat delta 43, chest x-ray with evidence of a new right upper lobe pneumonia, EKG w/ sinus rhythm with ST depression less than 1 mm inferior laterally without ST elevations which is new from prior with repeat EKG following chest pain-free status with near complete resolution with concern for potential unstable angina as etiology of her dynamic changes.? In the ED patient ministered normal saline, aspirin 162 mg p.o. x1 as well as nitroglycerin 1 inch transdermal paste, maintenance IV fluids and initiated on a heparin drip with bolus. Discussed CXR findings with ED physician and will initiate abx therapy upon floor transition. During ED evaluation patient oxygenation remained 93-94%. [facility] Medical History (Updated 06/04/22 @ 11:24 by Bijal Mccurdy DIRECTOR OF CASEWORK DEPARTMENT, DIRECTOR OF CASEWORK DEPARTMENT-C) Abdominal aortic aneurysm (AAA) Acute cystitis with hematuria Ambulates with cane Anemia Aortic aneurysm Arthritis Asthma Atherosclerotic heart disease of [place] coronary artery without angina pectoris Back pain BiPAP (biphasic positive airway pressure) dependence Cancer Cardiology follow-up encounter Carotid bruit Chest pain Chronic constipation Chronic cough COPD (chronic obstructive pulmonary disease) Daytime hypersomnia DDD (degenerative disc disease), lumbar Diabetes DM2 (diabetes mellitus, type 2) Dyslipidemia Easy bruising Essential (primary) hypertension Former smoker Gastric reflux High cholesterol History of echocardiogram History of edema History of heart attack History of hiatal hernia History of irregular heartbeat History of pain when walking History of renal disease History of steroid therapy History of stress test HLD (hyperlipidemia) Hoarseness Hypertension Injury of back Kidney stone Leg cramps MARIXA (obstructive sleep apnea) Overweight Patellar bursitis of right knee Peripheral vascular disease of extremity with claudication Pre-syncope PVD (peripheral vascular disease) Rectus sheath hematoma Recurrent urinary tract infection Restless legs Restless legs syndrome Seasonal allergies Shortness of breath on exertion Sleep apnea Somatic dysfunction of pelvic region Stage 3b chronic kidney disease Walker as ambulation aid Wears dentures Wears glasses Wears hearing aid Home Medications pantoprazole 40 mg tablet,delayed release 40 mg PO DAILY reflux 03/28/14 [History Last Taken 03/09/22] ammonium lactate 12 % lotion 1 applic topical QD-BID PRN dry skin 02/06/18 [History Last Taken Unknown] triamcinolone acetonide 55 mcg nasal spray aerosol (Nasacort) 2 spray intranasal DAILY allergies 09/04/18 [History Last Taken 03/09/22] handicap placcard #1 ea 09/28/19 [Rx Last Taken Unknown] ascorbate calcium (vitamin C) 500 mg tablet 500 mg PO DAILY Bone strength 05/03/20 [History Last Taken 03/09/22] coenzyme Q10 100 mg capsule (Co Q-10) 100 mg PO DAILY 05/03/20 [History Last Taken Unknown] cholecalciferol (vitamin D3) 100 mcg (4,000 unit) tablet 100 mcg PO DAILY 11/03/20 [History Last Taken Unknown] spacer #1 ea 01/12/21 [Rx Last Taken Unknown] nitroglycerin 0.4 mg sublingual tablet (Nitrostat) 0.4 mg sublingual Q5-15M PRN chest pain #25 tabs 11/01/21 [Rx Last Taken Unknown] albuterol sulfate 90 mcg/actuation aerosol inhaler (Ventolin HFA) 2 inh inhalation Q4H PRN shortness of breath or wheezing #18 grams 11/27/21 [Rx Last Taken Unknown] atorvastatin 40 mg tablet 40 mg PO QODAY cholesterol #45 tabs 02/20/22 [Rx Last Taken 03/08/22] ipratropium 0.5 mg-albuterol 3 mg (2.5 mg base)/3 mL nebulization soln 3 ml i nhalation 4X/DAY PRN PRN shortness of breath or wheezing #90 mL 02/21/22 [Rx Last Taken 03/09/22] ipratropium bromide 42 mcg (0.06 %) nasal spray 2 spray intranasal TID-QID PRN allergy symptoms #15 mL 02/21/22 [Rx Last Taken Unknown] budesonide-formoterol HFA 160 mcg-4.5 mcg/actuation aerosol inhaler (Symbicort) 2 puff inhalation BID Respitory 03/09/22 [History Last Taken 03/06/22] montelukast 10 mg tablet 10 mg PO QHS Respiratory 03/09/22 [History Last Taken 03/08/22] acetaminophen 500 mg tablet 1,000 mg PO Q6H PRN PRN Pain Score 1-10 #0 tabs 03/19/22 [Rx Last Taken Unknown] ropinirole 0.5 mg tablet 0.5 mg PO TID 04/22/22 [History Last Taken Unknown] carvedilol 25 mg tablet 25 mg PO BID #180 tabs 05/22/22 [Rx Last Taken Unknown] furosemide 40 mg tablet 40 mg PO DAILY #90 tabs 05/22/22 [Rx Last Taken Unknown] hydralazine 100 mg tablet 100 mg PO TID Disreguard previous RX: dose changed #3 60 tabs 05/22/22 [Rx Last Taken Unknown] isosorbide mononitrate 30 mg tablet,extended release 24 hr 30 mg PO DAILY 05/22/22 [History Last Taken Unknown] aspirin 81 mg chewable tablet 81 mg PO QHS heart health 05/30/22 [History Last Taken Unknown] loratadine 10 mg tablet 10 mg PO DAILY 05/30/22 [History Last Taken Unknown] metformin 850 mg tablet 850 mg PO BID Blood Glucose 05/30/22 [History Last Taken Unknown] Allergy/AdvReac Type Severity Reaction Status Date / Time cilostazol [From Pletal] Allergy Unknown Verified 06/02/22 22:07 felodipine Allergy Hives Verified 06/02/22 22:07 levofloxacin Allergy Hives Verified 06/02/22 22:07 Sulfa (Sulfonamide Allergy Unknown Verified 06/02/22 22:07 Antibiotics) Family History (Updated 06/03/22 @ 03:[address] Audra Schneider MD) Father Diabetes Cancer Prostate cancer Mother Dementia Surgical History H/O aortic aneurysm repair (11/1998) History of coronary artery stent placement (02/17/08) History of endarterectomy (07/2018) History of hernia repair History of left heart catheterization (03/2014) History of transurethral resection of prostate History of vascular surgery (08/2018) Social History household members: spouse Smoking Status: Former smoker how long ago did patient quit smokin years ago alcohol intake: current alcohol intake frequency: holidays/special occasions only details: hx of alcohol abuse substance use type: does not use caffeine: No what type of physical activity do you participate in: other details: Nustep frequency: 5-6 times per week duration: 15-30 minutes/day seatbelt use: always do you feel safe at home: Yes ROS ROS Narrative Admission Review of Systems: CONSTITUTIONAL: No weight loss, fever, chills, + weakness or fatigue. HEENT: Eyes: No visual loss, blurred vision, double vision or yellow sclerae. Ears, Nose, Throat: No hearing loss, sneezing, congestion, runny nose or sore throat. SKIN: No rash or itching, lesions, wounds. CARDIOVASCULAR: + chest pain, chest pressure or chest discomfort, No palpitations, edema, orthopnea, syncopal events. RESPIRATORY: + shortness of breath, cough with productive sputum, occasional wheezing, No hemoptysis. GASTROINTESTINAL: No anorexia, nausea, vomiting or diarrhea, abdominal pain, melena, BRBPR. GENITOURINARY: No dysuria, frequency, urgency or retention. NEUROLOGICAL: No headache, dizziness, syncope, paralysis, ataxia, numbness or tingling in the extremities, focal weakness, change in bowel or bladder control, seizure. MUSCULOSKELETAL: + muscle, back pain, joint pain or stiffness. HEMATOLOGIC: + anemia, bleeding or bruising. LYMPHATICS: No enlarged nodes. No history of splenectomy. PSYCHIATRIC: No history of depression or anxiety. ENDOCRINOLOGIC: No reports of sweating, cold or heat intolerance. No polyuria or polydipsia. ALLERGIES: + history of hives. Physical Exam Const alert and oriented x3 HEENT normocephalic and moist oral mucous membranes Eyes PERRL, EOMs intact bilaterally and conjunctivae normal Neck no lymphadenopathy Resp clear to auscultation bilaterally Auscultation: diminished lung sounds Cardio regular rate, regular rhythm and no murmurs Peripheral Pulses: pulses 2+ throughout GI normal to inspection, nondistended, normoactive bowel sounds, non-tender and non-distended Extremity normal to inspection General Extremity: edema bilateral lower extremity Details: mild Skin no rashes or lesions noted Lesions: no lesions Rashes: no rashes Trauma: no lacerations or abrasions Neuro CN's II-XII intact bilaterally, no focal motor deficits, no sensory deficits noted and deep tendon reflexes 2+ bilaterally Psych mental status grossly normal and affect normal Lab / Micro Data Result Diagrams: 06/04/22 01:50 06/04/22 01:50 Labs: Laboratory Results - last 24 hr 06/03/22 02:33: Vitamin B12 233 06/03/22 04:35: Iron 14 L, TIBC 245 L, Iron Saturation 5.7 L, Ferritin 79, Folate 8.60 06/03/22 08:51: APTT 40.1 H 06/03/22 11:42: POC Glucose 207 H 06/03/22 15:51: POC Glucose 121 H 06/03/22 18:35: APTT 50.7 H 06/03/22 21:32: POC Glucose 186 H 06/04/22 01:50: WBC 7.4, RBC 3.01 L, Hgb 8.3 L, Hct 26.6 L, MCV 88.4, MCH 27.6, MCHC 31.2 L, RDW Std Deviation 44.4 H, RDW Coeff of Justin 14.2, Plt Count 282, MPV 11.1, Immature Gran % (Auto) 0.400, Neut % (Auto) 55.5, Lymph % (Auto) 29.3, [place] % (Auto) 10.9 H, Eos % (Auto) 3.5, Baso % (Auto) 0.4, Absolute Neuts (auto) 4.1, Absolute Lymphs (auto) 2.17, Nucleated RBC % 0 06/04/22 01:50: Sodium 134 L, Potassium 3.9, Chloride 102, Carbon Dioxide 26.0, Anion Gap 6, BUN 24 H, Creatinine 1.44 H, Estim Creat Clear Calc 39.43, Est GFR (MDRD) Af Amer 60, Est GFR (MDRD) Non-Af 50 L, BUN/Creatinine Ratio 16.7, Glucose 157 H, Calcium 8.9 06/04/22 01:50: APTT 50.2 H 06/04/22 06:29: POC Glucose 167 H 06/04/22 08:18: APTT 52.4 H Micro: Microbiology 06/03/22 04:35 Sputum, Expectorated/Coughed Gram Stain - Final 06/03/22 04:35 Sputum, Expectorated/Coughed Respiratory Culture - Preliminary 06/03/22 18:26 Stool Stool Occult Blood (YI) - Final Charges/Coding Visit Charges Inpatient E&M: 98203 Init Hosp L2
[2022-06-04 11:35] LABS: Bedside Glucose 212 mg/dL (74-106)
[2022-06-04] MEDS: Sodium Ferric Gluconat 250 MG in 0.9% Normal Saline 250 ML 135 MG IV (12:08)
--- NOTE | 2022-06-04 12:51 | PCM.PN.CARD ---
Subjective Subjective Denies any chest pain. Patient will walk around the room and had shortness of breath. Objective Data Vital Signs: Vital Signs Temp Pulse Resp BP Pulse Ox O2 Del Method O2 Flow Rate 97.4 F L 58 L 18 147/66 H 95 Room Air 2 06/04/22 08:10 06/04/22 11:30 06/04/22 08:10 06/04/22 08:10 06/04/22 08:10 06/04/22 08:10 06/04/22 07:04 Oxygen Flow Rate (L/min) 2 Oxygen Delivery Method Room Air Weight: 193 lb Body Mass Index (BMI) 27.6 Intake & Output: Intake and Output for Last 24 Hours 06/02/22 06/03/22 06/04/22 23:59 23:59 23:59 Intake Total 3454.07 / 3454.07 481.85 / 481.85 Output Total 2150 / 2150 450 / 450 Balance 1304.07 / 1304.07 31.85 / 31.85 Lab / Micro Data Result Diagrams: 06/04/22 01:50 06/04/22 01:50 Labs: Laboratory Results - last 24 hr 06/03/22 02:33: Vitamin B12 233 06/03/22 08:51: APTT 40.1 H 06/03/22 15:51: POC Glucose 121 H 06/03/22 18:35: APTT 50.7 H 06/03/22 21:32: POC Glucose 186 H 06/04/22 01:50: WBC 7.4, RBC 3.01 L, Hgb 8.3 L, Hct 26.6 L, MCV 88.4, MCH 27.6, MCHC 31.2 L, RDW Std Deviation 44.4 H, RDW Coeff of Justin 14.2, Plt Count 282, MPV 11.1, Immature Gran % (Auto) 0.400, Neut % (Auto) 55.5, Lymph % (Auto) 29.3, [place] % (Auto) 10.9 H, Eos % (Auto) 3.5, Baso % (Auto) 0.4, Absolute Neuts (auto) 4.1, Absolute Lymphs (auto) 2.17, Nucleated RBC % 0 06/04/22 01:50: Sodium 134 L, Potassium 3.9, Chloride 102, Carbon Dioxide 26.0, Anion Gap 6, BUN 24 H, Creatinine 1.44 H, Estim Creat Clear Calc 39.43, Est GFR (MDRD) Af Amer 60, Est GFR (MDRD) Non-Af 50 L, BUN/Creatinine Ratio 16.7, Glucose 157 H, Calcium 8.9 06/04/22 01:50: APTT 50.2 H 06/04/22 06:29: POC Glucose 167 H 06/04/22 08:18: APTT 52.4 H 06/04/22 11:00: POC Glucose 212 H Micro: Microbiology 06/03/22 04:35 Sputum, Expectorated/Coughed Gram Stain - Final 06/03/22 04:35 Sputum, Expectorated/Coughed Respiratory Culture - Preliminary 06/03/22 18:26 Stool Stool Occult Blood (YI) - Final Cardiology Labs/Tests 06/03/22 08:51: APTT 40.1 H 06/03/22 18:35: APTT 50.7 H 06/04/22 01:50: WBC 7.4, RBC 3.01 L, Hgb 8.3 L, Hct 26.6 L, MCV 88.4, MCH 27.6, MCHC 31.2 L, Plt Count 282, MPV 11.1, Immature Gran % (Auto) 0.400, Neut % (Auto) 55.5, Lymph % (Auto) 29.3, [place] % (Auto) 10.9 H, Eos % (Auto) 3.5, Baso % (Auto) 0.4, Absolute Neuts (auto) 4.1, Nucleated RBC % 0 06/04/22 01:50: Sodium 134 L, Potassium 3.9, Chloride 102, Carbon Dioxide 26.0, Anion Gap 6, BUN 24 H, Creatinine 1.44 H, Est GFR (MDRD) Af Amer 60, Est GFR (MDRD) Non-Af 50 L, BUN/Creatinine Ratio 16.7, Glucose 157 H, Calcium 8.9 06/04/22 01:50: APTT 50.2 H 06/04/22 08:18: APTT 52.4 H Rhythm: EKG: ECHO: Stress Test: Cardiac Cath: PCI: CT Surgery: Holter monitor: EPS: PPM: CXR: Chest CT Scan: Physical Exam Const alert and oriented x3 HEENT normocephalic Eyes no scleral icterus Resp normal respiratory effort Resp Narrative: Right-sided crackles have improved since yesterday Skin no rashes or lesions noted Psych mental status grossly normal Assessment & Plan Assessment/Plan (1) Chest pain: PLAN: Chest pain resolved. Hemoglobin dropped again today slightly. DC heparin. Continue aspirin, statin, beta-wagner.. He had an echo earlier this month that showed preserved EF. No further echo is required at this time. He can follow-up with us as an outpatient when he is discharged from the hospital. (2) Pneumonia: Charges/Coding Visit Charges Inpatient E&M: 67791 Subs Hosp L1
[2022-06-04] MEDS: 0.9% Normal Saline 1,000 ML 15 ML IV (13:27)
[2022-06-04] MEDS: Bisacodyl 5 MG Tablet 20 MG PO (13:27)
[2022-06-04] MEDS: Electrolyte Solution/Peg's 4000 ML PO (14:34)
--- NOTE | 2022-06-04 14:45 | CASEMGMT ---
Readmission chart review: 05/15-05/16/22 Decompensated HF 2 ED visits w/ d/c home-05/22 and 05/2806/03/22-current Unstable angina, pna, anemia Pt presented initially with SOB and hx COPD. Pt admitted to PCU and then discharged the next days with improvement in symptoms. Pt did not qualify for home oxygen at discharge. Pt home with with med changes: isosorbide mononitrate 30 mg Tablet Extended Release 24 Hr 30 mg PO BID and hydralazine 50 mg Tablet 100 mg PO TID. Pt then returned to ED twice with SOB complaint and d/c home. Pt presented 06/02 with chest/arm pain/discomfort and admitted with Unstable angina, pna, anemia. Pt's Hgb has been trending down for last month or so. IV iron infusing and Dr. Jo plans to complete upper and lower scopes 06/05/22. Pt is currently on room air but has audible wheezing at rest. Pt c/o increased SOB w/ exertion. CM to follow therapy notes, home oxygen testing, and for any further discharge planning/needs. Pt does qualify for palliative referral and Dr. Rubi is agreeable. Pt/ aware of palliative referral but not sure they fully understand goal of palliative. Per Allyson HACKETT, ok to still make referral so that palliative can better explain to pt/. Keith MACIAS CM
[2022-06-04 16:45] LABS: Bedside Glucose 134 mg/dL (74-106)
[2022-06-04] MEDS: Ondansetron 4 MG/2 ML Vial IV (20:32)
[2022-06-04] MEDS: Ceftriaxone 1 GM/50 ML BAG IV (22:24)
[2022-06-04] MEDS: Aspirin 81 MG TAB.CHEW PO (22:30)
[2022-06-04] MEDS: Montelukast 10 MG Tablet PO (22:31)
[2022-06-04] MEDS: Nitroglycerin Oint 1 INCH PACKET TD (23:16)
[2022-06-05] VITALS (23 sets, daily range): BP systolic 130–188; BP diastolic 60–90; PULSE 55–104; RESP 15–20; TEMP 36.3–36.6; O2SAT 91–98; BMI 27.6
[2022-06-05 01:31] LABS: Bedside Glucose 140 mg/dL (74-106)
[2022-06-05 04:58] LABS: Absolute Lymphocyte Count 1.51 X10^3/uL (0.83-4.51); Basophil# 0.03 X10^3/uL; Basophil% 0.5 % (0-1); Eosinophil# 0.25 X10^3/uL; Eosinophils% 3.9 % (0-5); Hematocrit 24.5 % (40-54); Hemoglobin 8.4 g/dL (13.0-16.5); Lymphocyte # 1.51 X10^3/ul (0.83-4.51); Lymphocyte % 23.4 % (19-41); Mean Corp Hgb Conc 34.3 g/dL (32-36); Mean Corpuscular Hgb 30.9 pg (27.0-32.0); Mean Corpuscular Volume 90.1 fL (80-94); Mean Platelet Vol. 11.5 fl (6.2-12.0); Monocyte# 0.58 X10^3/uL; NRBC Flagged by Analyzer 0 % (0-5); Neutrophil # 4.03 X10^3/uL (2.7-7.7); Neutrophil % 62.6 % (47-70); Platelet Count 302 K/mm3 (150-450); RBC Distribution Width CV 14.2 % (11.6-14.6); RBC Distribution Width SD 44.1 fl (35.1-43.9); Red Blood Count 2.72 M/mm3 (4.6-6.2); White Blood Count 6.4 K/mm3 (4.4-11.0)
[2022-06-05 05:20] LABS: Anion Gap 9 (5-15); BUN 20 mg/dL (7-18); Calcium,Total 8.6 mg/dL (8.5-10.1); Chloride 101 mmol/L (98-107); Creatinine, Serum 1.25 mg/dL (0.70-1.30); EST Glomerular Filtration Rate 58 mL/min (>60); Est Glom Filt Rate - Afr Amer 71 mL/min (>60); Estimated Creatinine Clearance 45.42 ml/min; Glucose 152 mg/dL (74-106); Potassium 3.6 mmol/L (3.5-5.1); Sodium Level 136 mmol/L (136-145)
--- NOTE | 2022-06-05 05:55 | EKG12_ITS ---
Test Reason : AM EKG Blood Pressure : / mmHG Vent. Rate : 063 BPM Atrial Rate : 063 BPM P-R Int : 200 ms QRS Dur : 094 ms QT Int : 464 ms P-R-T Axes : 052 055 004 degrees QTc Int : 474 ms Sinus rhythm with Premature supraventricular complexes Nonspecific ST abnormality Abnormal ECG Confirmed by JUAN SMITH, ANA ([id number]), market editor LASHANDA GARNETT ([id number]) on 06/06/2022 8:25:22 AM Referred By: Confirmed By:ANA MARTINEZ MD
[2022-06-05] MEDS: Ipratropium/Albuterol Sulfate 3 ML AMPUL.NEB INHALATION ×4 (06:36→22:55)
--- NOTE | 2022-06-05 08:18 | CASEMGMT ---
Per palliative, declines meeting with liasion at this time. Keith MACIAS CM
[2022-06-05] MEDS: hydrALAZINE 50 MG Tablet 100 MG PO ×3 (08:33→20:41)
[2022-06-05] MEDS: Carvedilol 25 MG Tablet PO ×2 (08:33→20:41)
[2022-06-05] MEDS: Isosorbide Mononitrate 30 MG Tablet PO (08:36)
[2022-06-05 11:11] LABS: Bedside Glucose 134 mg/dL (74-106)
[2022-06-05] MEDS: Acetaminophen 325 MG Tablet 650 MG PO (11:22)
[2022-06-05 11:51] LABS: Bedside Glucose 130 mg/dL (74-106)
--- NOTE | 2022-06-05 13:23 | PN.HOSP_ITS ---
Documented by User: Bijal Mccurdy NP, DATABASES COMPUTER CONSULTANT-C 06/05/22 13:30 Subjective Subjective Patient seen and examined. Improved. Denies other symptoms or complaints. Awaiting EGD/colonoscopy. Objective Data Objective Data Vital Signs: Vital Signs Temp Pulse Resp BP Pulse Ox O2 Del Method O2 Flow Rate 97.4 F L 55 L 16 144/61 H 97 Room Air 2 06/05/22 13:01 06/05/22 13:01 06/05/22 13:01 06/05/22 13:01 06/05/22 13:01 06/05/22 13:01 06/04/22 07:04 Oxygen Flow Rate (L/min) 2 Oxygen Delivery Method Room Air Weight: 192 lb 15.988 oz Body Mass Index (BMI) 27.6 Intake & Output: Intake and Output for Last 24 Hours 06/03/22 06/04/22 06/05/22 23:59 23:59 23:59 Intake Total 3454.07 / 3454.07 869.10 / 869.10 255 / 255 Output Total 2150 / 2150 700 / 700 Balance 1304.07 / 1304.07 169.10 / 169.10 255 / 255 Lab / Micro Data Result Diagrams: 06/05/22 04:16 06/05/22 04:16 Labs: Laboratory Results - last 24 hr 06/04/22 16:10: POC Glucose 134 H 06/04/22 22:21: POC Glucose 140 H 06/05/22 04:16: WBC 6.4, RBC 2.72 L, Hgb 8.4 L, Hct 24.5 L, MCV 90.1, MCH 30.9, MCHC 34.3 D, RDW Std Deviation 44.1 H, RDW Coeff of Justin 14.2, Plt Count 302, MPV 11.5, Immature Gran % (Auto) 0.600, Neut % (Auto) 62.6, Lymph % (Auto) 23.4, [place] % (Auto) 9.0, Eos % (Auto) 3.9, Baso % (Auto) 0.5, Absolute Neuts (auto) 4.0, Absolute Lymphs (auto) 1.51, Nucleated RBC % 0 06/05/22 04:16: Sodium 136, Potassium 3.6, Chloride 101, Carbon Dioxide 26.0, Anion Gap 9, BUN 20 H, Creatinine 1.25, Estim Creat Clear Calc 45.42, Est GFR (MDRD) Af Amer 71, Est GFR (MDRD) Non-Af 58 L, BUN/Creatinine Ratio 16.0, Glucose 152 H, Calcium 8.6 06/05/22 06:32: POC Glucose 134 H 06/05/22 11:21: POC Glucose 130 H Micro: Microbiology 06/03/22 04:35 Sputum, Expectorated/Coughed Gram Stain - Final 06/03/22 04:35 Sputum, Expectorated/Coughed Respiratory Culture - Final 06/03/22 18:26 Stool Stool Occult Blood (YI) - Final 06/03/22 02:38 Mucosa - Nasopharyngeal Respiratory Panel (PCR) - Final 06/03/22 03:40 Urine, Random Legionella Antigen - Final 06/03/22 03:40 Urine, Random Streptococcus pneumoniae Antigen (M - Final Physical Exam Const alert and oriented x3 HEENT normocephalic Mouth: dry mucous membranes Eyes PERRL, EOMs intact bilaterally and conjunctivae normal Neck no lymphadenopathy Resp clear to auscultation bilaterally Auscultation: diminished lung sounds Cardio regular rate, regular rhythm and no murmurs Peripheral Pulses: pulses 2+ throughout GI normal to inspection, nondistended, normoactive bowel sounds, non-tender and non-distended Extremity normal to inspection Skin no rashes or lesions noted Lesions: no lesions Rashes: no rashes Trauma: no lacerations or abrasions Neuro CN's II-XII intact bilaterally, no focal motor deficits, no sensory deficits noted and deep tendon reflexes 2+ bilaterally Psych mental status grossly normal and affect normal Assessment & Plan Assessment/Plan (1) Pneumonia: (2) Chest pain: (3) Anemia: PLAN: Plan 1.? Right upper lobe community-acquired pneumonia-oxygen now stable on room air.? Not documented to be hypoxic.? IV azithromycin and IV Rocephin.? Sputum culture pending however preliminary appears to be normal respiratory irish.? Albuterol and DuoNeb aerosols. Clinically improved. 2. Chest pain, EKG changes-cardiology consulted. Continue medical management.? Plan for medical management and outpatient follow-up. 3. Acute on chronic normocytic anemia-stool negative for occult blood.? Iron studies with iron deficiency.? IV iron x3.? GI consulted.? Plan for EGD/colonoscopy this afternoon. 4. CAD with history of PCI-continue aspirin, statin, carvedilol, isosorbide. 5. Chronic COPD/asthma-albuterol and DuoNeb aerosols. 6. Hypertension-stable, continue Coreg, Lasix, hydralazine, isosorbide hyperlipidemia. 7. Hyperlipidemia-continue statin. 8. Type 2 diabetes [id number] with sliding scale insulin. 9. Chronic kidney disease stage IIIb-appears at baseline. 10. Restless leg syndrome-continue Requip. 11. Former tobacco use-encouraged cessation. 12. History of AAA-status post repair 1998. 13. GERD-continue PPI. 14. MARIXA- continue BIPAP. DVT prophylaxis-SCDs This patient was seen by ANNA Sanchez under the supervision of Dr. Rubi. Time spent examining patient, reviewing data and subsequent management of care: 14 minutes Documented by User: Dr. Ben Rubi, 06/05/22 13:47 Objective Data Lab / Micro Data Result Diagrams: 06/05/22 04:16 06/05/22 04:16 Assessment & Plan Assessment/Plan (1) Pneumonia: (2) Chest pain: (3) Anemia: Charges/Coding Addendum Addendum: Patient seen and examined independently.? Data and vitals reviewed.? I agree with the above note by the nurse practitioner. Breathing well.? No acute issues at present. A month ago, patient had swollen right testicle. Was on antibiotics which helped but his right testicle still more swollen. Physical exam: Patient is in chair, no respiratory distress, no conversational dyspnea.? Heart rate regular rate and rhythm plus S1-S2 with a murmurs Rubs.? Lungs Are Clear to Auscultation Bilaterally.? Abdomen Is Soft Nontender Nondistended Normal Bowel Sounds.? Extremities Are Any Cyanosis, Clubbing or Edema. Testicular exam, right testicular goal is larger than the left but nontender. No scrotal edema. Assessment and plan 1.? suspected pneumococcal pneumonia On room air Continue with azithromycin and ceftriaxone Follow-up sputum culture 2.? Acute blood anemia Hemoglobin 8.3 today and was 10.3 on the Concern for GI losses GI in consult and planning on endoscopy 3.? Chest pain Mildly elevated troponin of 81 Patient with known CAD with prior stent. Cannot rule out a type II event Discussed with Dr. Mar, plan for outpatient follow-up 4. Recent orchitis: Patient had been on ciprofloxacin on April. Appears clinically stable at this time. Reassurance was provided to the patient and his who is at bedside. Visit Charges Inpatient E&M: 86549 Subs Hosp L2
--- NOTE | 2022-06-05 14:45 | COLBX_PTH ---
PATIENT: DESIREE ROSAS LOC: [facility] U#:[id number] AGE/SX: 86/M ROOM: [facility] RE06/03/[address]: Dr. Ben Rubi DO : 1935 BED: 1 DIS: 06/06/2022 SPEC #: [id number] RECD: 06/05/22 17:58 STATUS: CHENTE SON #: [id number] ZAHIDA: 06/05/22 14:[address]: Mg Jo DEPT: SURGICAL PATHOLOGY RECD BY: Zonia Freeman ENTERED: 06/06/22 08:19 SP TYPE: COLON BX OTHR DR: MD Dr. Audra Tripp MD Dr. Eric Jopperi, DO Dr. Nana Yaa Koram, MD Dr. Nagapradee Nagajothi, MD Dr. Victor Velasquez, MD Tissues: A - Transverse colon B - Cecum, NOS Procedures: Surgery Specimen Level IV HEADER OPERATION: Colonoscopy, polypectomy with EPI injection and ink tattoo PRE-OP DIAGNOSIS: Anemia TISSUE SUBMITTED: A - Transverse colon polyp biopsy, B ? Cecum polyp biopsy MICROSCOPIC DIAGNOSIS A. Transverse colon polyp, biopsy: Fragments of tubular adenoma. B. Cecal polyp, biopsy: Fragments of tubular adenoma. AM:robert 06/07/2022 MICROSCOPIC DESCRIPTION Slides are reviewed. GROSS DESCRIPTION A - Received in fixative is one container labeled with the patient's name and designated transverse colon biopsy. The specimen consists of multiple irregular fragments of light [place] soft tissue that in aggregate measure 2 x 1 x 0.2 cm. The specimen is totally submitted in one cassette. B - Received in fixative is one container labeled with the patient's name and designated cecal polyp biopsy. The specimen consists of multiple irregular fragments of light [place] soft tissue that in aggregate measure 2.3 x 1 x 0.2 cm. The specimen is totally submitted in one cassette. / AM:robert 06/06/2022 TC:5 CPT: 96383 x2
[2022-06-05] MEDS: 0.9% Normal Saline (Pres. free 10 ML Vial ×2 (16:06→16:12)
[2022-06-05] MEDS: Epinephrine (1 mg/ml) 1 MG/ML VIAL ×2 (16:06→16:12)
--- NOTE | 2022-06-05 16:33 | OP.EGD_ITS ---
Patient Name: Woody Hernandes Procedure Date: 06/05/2022 3:20 PM Date of : 1935 Age: 86 Procedure: Upper GI endoscopy Indications: Iron deficiency anemia Providers: Mg Jo DO Medicines: Monitored Anesthesia Care Patient Profile: This is an 86 year old male. Refer to note in patient chart for documentation of history and physical. Patient has symptoms. The symptoms first began 01,. Complications: No immediate complications. Procedure: Pre-Anesthesia Assessment: - Prior to the procedure, a History and Physical was performed, and patient medications and allergies were reviewed. The patient is competent. The risks and benefits of the procedure and the sedation options and risks were discussed with the patient. All questions were answered and informed consent was obtained. Patient identification and proposed procedure were verified by the physician in the pre-procedure area. Mental Status Examination: alert and oriented. Airway Examination: normal oropharyngeal airway and neck mobility. Respiratory Examination: clear to auscultation. CV Examination: normal. Prophylactic Antibiotics: The patient does not require prophylactic antibiotics. Prior Anticoagulants: The patient has taken no previous anticoagulant or antiplatelet agents. ASA Grade Assessment: II - A patient with mild systemic disease. After reviewing the risks and benefits, the patient was deemed in satisfactory condition to undergo the procedure. The anesthesia plan was to use moderate sedation / analgesia (conscious sedation). Immediately prior to administration of medications, the patient was re-assessed for adequacy to receive sedatives. The heart rate, respiratory rate, oxygen saturations, blood pressure, adequacy of pulmonary ventilation, and response to care were monitored throughout the procedure. The physical status of the patient was re-assessed after the procedure. After obtaining informed consent, the endoscope was passed under direct vision. Throughout the procedure, the patient's blood pressure, pulse, and oxygen saturations were monitored continuously. The colonoscope was introduced through the mouth, and advanced to the second part of duodenum. The upper GI endoscopy was accomplished without difficulty. The patient tolerated the procedure well. Moderate Sedation: Moderate (conscious) sedation was personally administered by an anesthesia professional. The following parameters were monitored: oxygen saturation, heart rate, blood pressure, respiratory rate, EKG, adequacy of pulmonary ventilation, and response to care. Total physician intraservice time was 15 minutes. Scope In: 3:31:06 PM Scope Out: 3:32:50 PM Total Procedure Duration Time 0 hours 1 minute 44 seconds Findings: The examined esophagus was normal. A medium-sized hiatal hernia was present. The cardia and gastric fundus were normal on retroflexion. The second portion of the duodenum was normal. Biopsies were taken with a cold forceps for histology. Impression: - Normal esophagus. - Medium-sized hiatal hernia. - Normal second portion of the duodenum. Biopsied. Recommendation: - Await pathology results. - Continue present medications. Procedure Code(s): --- Professional --- 92899, Esophagogastroduodenoscopy, flexible, transoral; with biopsy, single or multiple CPT copyright 2017 [employer]. All rights reserved. The codes documented in this report are preliminary and upon management and budget analyst review may be revised to meet current compliance requirements. Mg Jo DO 06/05/2022 4:32:48 PM This report has been signed electronically. Number of Addenda: 1 Note Initiated On: 06/05/2022 3:20 PM Addendum Number: 1 Addendum Date: 07/12/2022 6:01:45 AM MAC was used as sedation for this procedure. Mg Jo DO 07/12/2022 6:01:51 AM This report has been signed electronically.
--- NOTE | 2022-06-05 16:34 | OP.CCLET_ITS ---
07/12/2022 Emeka Horn [address] [place] [address] Re : Upper GI endoscopy procedure for Woody Hernandes Dear Dr. Horn This procedure was performed on Sunday, June 05, 2022. My impressions and recommendations are as follows: Impressions : - Normal esophagus. - Medium-sized hiatal hernia. - Normal second portion of the duodenum. Biopsied. Recommendations : - Await pathology results. - Continue present medications. My findings are described in the full procedure note, which is enclosed. If I can be of further assistance, please feel free to contact me at . Sincerely, Mg Jo, 06/05/2022 4:32:48 PM This report has been signed electronically.
--- NOTE | 2022-06-05 16:43 | OP.COLON_ITS ---
Patient Name: Woody Hernandes Procedure Date: 06/05/2022 3:32 PM Date of : 1935 Age: 86 Procedure: Colonoscopy Indications: Iron deficiency anemia Providers: Mg Jo DO Medicines: Monitored Anesthesia Care Patient Profile: This is an 86 year old male. Refer to note in patient chart for documentation of history and physical. Patient has symptoms. The symptoms first began 01,. He is status post colonoscopy (normal) in the distant past. Last Colonoscopy: none. The patient's first colonoscopy is today. Complications: No immediate complications. Procedure: Pre-Anesthesia Assessment: - Prior to the procedure, a History and Physical was performed, and patient medications and allergies were reviewed. The patient is competent. The risks and benefits of the procedure and the sedation options and risks were discussed with the patient. All questions were answered and informed consent was obtained. Patient identification and proposed procedure were verified by the physician in the pre-procedure area. Mental Status Examination: alert and oriented. Airway Examination: normal oropharyngeal airway and neck mobility. Respiratory Examination: clear to auscultation. CV Examination: normal. Prophylactic Antibiotics: The patient does not require prophylactic antibiotics. Prior Anticoagulants: The patient has taken no previous anticoagulant or antiplatelet agents. ASA Grade Assessment: II - A patient with mild systemic disease. After reviewing the risks and benefits, the patient was deemed in satisfactory condition to undergo the procedure. The anesthesia plan was to use moderate sedation / analgesia (conscious sedation). Immediately prior to administration of medications, the patient was re-assessed for adequacy to receive sedatives. The heart rate, respiratory rate, oxygen saturations, blood pressure, adequacy of pulmonary ventilation, and response to care were monitored throughout the procedure. The physical status of the patient was re-assessed after the procedure. After I obtained informed consent, the scope was passed under direct vision. Throughout the procedure, the patient's blood pressure, pulse, and oxygen saturations were monitored continuously. The colonoscope was introduced through the anus and advanced to the terminal ileum. The colonoscopy was performed without difficulty. The patient tolerated the procedure well. The quality of the bowel preparation was good. Scope In: 3:38:36 PM Scope Out: 4:25:32 PM Total Procedure Duration Time 0 hours 46 minutes 56 seconds Findings: The perianal and digital rectal examinations were normal. Scattered small and large-mouthed diverticula were found in the recto-sigmoid colon, sigmoid colon and descending colon. There was no evidence of diverticular bleeding. Seven sessile polyps were found in the sigmoid colon and transverse colon. The polyps were 1 to 2 mm in size. These polyps were removed with a hot snare. Resection and retrieval were complete. Verification of patient identification for the specimen was done. Estimated blood loss was minimal. A frond-like/villous non-obstructing large mass was found in the ascending colon. The mass was non-circumferential. The mass measured three cm in length. In addition, its diameter measured five mm. Oozing was present. Area was successfully injected with 15 mL of a 1:10,000 solution of epinephrine for hemostasis. Biopsies were taken with a cold forceps for histology. Verification of patient identification for the specimen was done. Estimated blood loss was minimal. Area was tattooed with an injection of 1 mL of Esther ink. Impression: - Severe diverticulosis in the recto-sigmoid colon, in the sigmoid colon and in the descending colon. There was no evidence of diverticular bleeding. - Seven 1 to 2 mm polyps in the sigmoid colon and in the transverse colon, removed with a hot snare. Resected and retrieved. - Rule out malignancy, tumor in the ascending colon. Injected. Biopsied. Tattooed. Recommendation: - Discharge patient to home. - Clear liquid diet. - Continue present medications. - Await pathology results. - Repeat colonoscopy is recommended for surveillance. The colonoscopy date will be determined after pathology results from today's exam become available for review. Procedure Code(s): --- Professional --- 06506, 59, Colonoscopy, flexible; with control of bleeding, any method 88250, Colonoscopy, flexible; with removal of tumor(s), polyp(s), or other lesion(s) by snare technique CPT copyright 2017 [employer]. All rights reserved. The codes documented in this report are preliminary and upon financial rep review may be revised to meet current compliance requirements. Mg Jo DO 06/05/2022 4:42:50 PM This report has been signed electronically. Number of Addenda: 1 Note Initiated On: 06/05/2022 3:32 PM Addendum Number: 1 Addendum Date: 07/12/2022 6:02:01 AM MAC was used as sedation for this procedure. Mg Jo DO 07/12/2022 6:02:07 AM This report has been signed electronically.
--- NOTE | 2022-06-05 16:44 | OP.CCLET_ITS ---
07/12/2022 Emeka Horn [address] [place] [address] Re : Colonoscopy procedure for Woody Hernandes Dear Dr. Horn This procedure was performed on Sunday, June 05, 2022. My impressions and recommendations are as follows: Impressions : - Severe diverticulosis in the recto-sigmoid colon, in the sigmoid colon and in the descending colon. There was no evidence of diverticular bleeding. - Seven 1 to 2 mm polyps in the sigmoid colon and in the transverse colon, removed with a hot snare. Resected and retrieved. - Rule out malignancy, tumor in the ascending colon. Injected. Biopsied. Tattooed. Recommendations : - Discharge patient to home. - Clear liquid diet. - Continue present medications. - Await pathology results. - Repeat colonoscopy is recommended for surveillance. The colonoscopy date will be determined after pathology results from today's exam become available for review. My findings are described in the full procedure note, which is enclosed. If I can be of further assistance, please feel free to contact me at . Sincerely, Mg Jo, 06/05/2022 4:42:50 PM This report has been signed electronically.
[2022-06-05] MEDS: Insulin Lispro 100 UNIT/ML INSULN.PEN SC ×2 (17:43→20:42)
[2022-06-05] MEDS: Pramipexole Di-HCl 0.25 MG Tablet PO (17:55)
[2022-06-05] MEDS: Pantoprazole Sodium 40 MG Tablet PO (17:56)
[2022-06-05] MEDS: Furosemide 40 MG Tablet PO (17:56)
[2022-06-05] MEDS: Loratadine 10 MG Tablet PO (17:56)
[2022-06-05 18:05] LABS: Bedside Glucose 155 mg/dL (74-106)
[2022-06-05] MEDS: Ceftriaxone 1 GM/50 ML BAG IV (20:24)
[2022-06-05] MEDS: Aspirin 81 MG TAB.CHEW PO (20:41)
[2022-06-05] MEDS: Atorvastatin Calcium 40 MG Tablet PO (20:41)
[2022-06-05] MEDS: Montelukast 10 MG Tablet PO (20:41)
[2022-06-05] MEDS: 0.9% Saline Lock 10 ML Syringe IV (21:01)
[2022-06-05 22:11] LABS: Bedside Glucose 181 mg/dL (74-106)
[2022-06-06] VITALS (11 sets, daily range): BP systolic 123–159; BP diastolic 49–78; PULSE 58–70; RESP 16–20; TEMP 36.2–36.8; O2SAT 95–98
[2022-06-06 05:55] LABS: Absolute Lymphocyte Count 1.91 X10^3/uL (0.83-4.51); Absolute Neutrophil Count 6.4 X10^3/uL (2.0-7.7); Basophil# 0.04 X10^3/uL; Basophil% 0.4 % (0-1); Eosinophil# 0.17 X10^3/uL; Eosinophils% 1.8 % (0-5); Hematocrit 25.2 % (40-54); Hemoglobin 8.1 g/dL (13.0-16.5); Lymphocyte # 1.91 X10^3/ul (0.83-4.51); Lymphocyte % 20.4 % (19-41); Mean Corp Hgb Conc 32.1 g/dL (32-36); Mean Corpuscular Hgb 29.1 pg (27.0-32.0); Mean Corpuscular Volume 90.6 fL (80-94); Mean Platelet Vol. 11.3 fl (6.2-12.0); Monocyte# 0.82 X10^3/uL; Monocyte% 8.8 % (0-10); NRBC Flagged by Analyzer 0 % (0-5); Neutrophil # 6.37 X10^3/uL (2.7-7.7); Neutrophil % 68.1 % (47-70); Platelet Count 297 K/mm3 (150-450); RBC Distribution Width CV 14.2 % (11.6-14.6); RBC Distribution Width SD 44.7 fl (35.1-43.9); Red Blood Count 2.78 M/mm3 (4.6-6.2); White Blood Count 9.4 K/mm3 (4.4-11.0)
[2022-06-06 06:36] LABS: Anion Gap 9 (5-15); BUN 18 mg/dL (7-18); BUN/Creat Ratio 14.8 RATIO (10-20); Calcium,Total 8.9 mg/dL (8.5-10.1); Chloride 103 mmol/L (98-107); Creatinine, Serum 1.22 mg/dL (0.70-1.30); EST Glomerular Filtration Rate 60 mL/min (>60); Est Glom Filt Rate - Afr Amer 73 mL/min (>60); Estimated Creatinine Clearance 46.54 ml/min; Glucose 142 mg/dL (74-106); Potassium 3.7 mmol/L (3.5-5.1); Sodium Level 138 mmol/L (136-145)
[2022-06-06] MEDS: hydrALAZINE 50 MG Tablet 100 MG PO ×2 (06:51→13:31)
[2022-06-06] MEDS: Acetaminophen 325 MG Tablet 650 MG PO (06:53)
[2022-06-06] MEDS: Ipratropium/Albuterol Sulfate 3 ML AMPUL.NEB INHALATION ×2 (07:13→12:23)
[2022-06-06 07:31] LABS: Bedside Glucose 151 mg/dL (74-106)
--- NOTE | 2022-06-06 08:07 | CT_ITS ---
STUDY: CT ABDOMEN AND PELVIS WITH CONTRAST REASON FOR EXAM: Male, 86 years old. Ascending colon mass found on colonoscopy RADIATION DOSAGE (If Supplied By Facility): CTDIvol = ( 20.90 ) mGy, DLP = ( 1047.81 ) mGycm TECHNIQUE: Transaxial images were obtained from the dome of the diaphragm to the symphysis pubis with oral contrast. Oral and IV Gastrografin and 100mL Isovue-300 was administered. Sagittal and coronal images were reconstructed. Individualized dose optimization techniques were used for this CT. COMPARISON: Comparison is made with prior examination dated 04/22/2022. FINDINGS: There are small bilateral pleural effusions right greater than left with bibasilar atelectasis and/or infiltrates worse on the right side. Coronary artery calcification. There is decreased attenuation of the liver consistent with steatosis. Normal gallbladder and extrahepatic biliary system. Normal spleen. Normal pancreas. Normal bilateral adrenal glands. Stable bilateral renal cysts. The dominant cyst is in the right kidney measuring 6 cm in the anterior lower pole of the right kidney. The largest cyst in the left kidney measures 2.6 cm. Normal visualized stomach. Normal small intestine. There are multiple colonic diverticula consistent with diverticulosis. Fecal material is seen in the colon. A mass lesion can''t be excluded. The appendix is visualized and appears normal. There is diffuse atherosclerotic calcification of the abdominal aorta and its major visceral branches. Stable dilatation of the distal abdominal aorta with a transverse dimension of 4 cm. Surgical clips are seen at that site suggestive of prior aneurysmal repair. Demonstrated aneurysm. Normal inferior vena cava. Normal retroperitoneum. Normal urinary bladder. Prostatic enlargement with indentation of the bladder base. The prostate measures 3.4 cm x 5.3 cm. There is evidence of prior TURP. Normal abdominal wall. There are diffuse degenerative changes of the visualized lumbar spine. CT/Abdomen/Pelvis WITH Contrast IMPRESSION: New bilateral pleural effusions with bibasilar atelectasis and/or infiltrates worse at the right lung base. The remainder of the examination is unchanged. Electronically Signed: Yemi Clifton MD at 11:04 EDT ,
[2022-06-06] MEDS: Carvedilol 25 MG Tablet PO (09:45)
[2022-06-06] MEDS: Isosorbide Mononitrate 30 MG Tablet PO (09:45)
[2022-06-06] MEDS: Pantoprazole Sodium 40 MG Tablet PO (09:45)
[2022-06-06] MEDS: Loratadine 10 MG Tablet PO (09:45)
[2022-06-06] MEDS: Fluticasone 0.05% 1 SPRAY NASAL.SRY 2 SPRAY NASAL (09:45)
[2022-06-06] MEDS: Furosemide 40 MG Tablet PO (09:45)
[2022-06-06] MEDS: Insulin Lispro 100 UNIT/ML INSULN.PEN SC (11:08)
[2022-06-06] MEDS: Nitroglycerin Oint 1 INCH PACKET TD (11:08)
--- NOTE | 2022-06-06 11:27 | EX.PCM.CON.S ---
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 The patient was found to have acute pneumonia of the right lung and CT scan confirms bilateral pleural effusions with right lower lobe infiltrate. The patient was also found to have new palpitations and was scheduled to have Holter monitor tomorrow as an outpatient. Patient also has a history of open AAA repair and open ventral hernia repair. Patient also has peripheral artery disease with very compromised blood flow to the legs. Patient has a polyp that was identified on colonoscopy yesterday. Pathology is pending. CT scan was ordered and does not show any metastatic disease. At this time the patient would need further work-up by cardiology and clearance for surgery. I will also wait on pathology to see if this is cancerous or not. Given the patient's age and comorbidities it may be safer to repeat attempt at colonoscopic resection. If this is cancerous then I would consider resection of the colon although I may have to send him to a tertiary center due to his cardiac comorbidities and history of open AAA repair with ventral hernia repair. I also explained that he would be at risk of thrombosis of his lower extremities during surgery. Fabrice Garcia MD Pager: [facility] [address] [place] [address], [address] [place] [address] Office: HPI Consult Data Date of Consult: 06/06/22 HPI Narrative HPI Narrative: DESIREE ROSAS, is a 86 M who present with anemia patient was admitted to the hospitalist service with new arrhythmia as well as pneumonia. He was found to be anemic and underwent colonoscopy was found to have a large oozing polyp in the ascending colon. [facility] Medical History (Updated 06/06/22 @ 11:[address] Fabrice Garcia MD) Abdominal aortic aneurysm (AAA) Acute cystitis with hematuria Ambulates with cane Anemia Aortic aneurysm Arthritis Asthma Atherosclerotic heart disease of sun'aq coronary artery without angina pectoris Back pain BiPAP (biphasic positive airway pressure) dependence Cancer Cardiology follow-up encounter Carotid bruit Chest pain Chronic constipation Chronic cough COPD (chronic obstructive pulmonary disease) Daytime hypersomnia DDD (degenerative disc disease), lumbar Diabetes DM2 (diabetes mellitus, type 2) Dyslipidemia Easy bruising Essential (primary) hypertension Former smoker Gastric reflux High cholesterol History of echocardiogram History of edema History of heart attack History of hiatal hernia History of irregular heartbeat History of pain when walking History of renal disease History of steroid therapy History of stress test HLD (hyperlipidemia) Hoarseness Hypertension Injury of back Kidney stone Leg cramps MARIXA (obstructive sleep apnea) Overweight Patellar bursitis of right knee Peripheral vascular disease of extremity with claudication Pre-syncope PVD (peripheral vascular disease) Rectus sheath hematoma Recurrent urinary tract infection Restless legs Restless legs syndrome Seasonal allergies Shortness of breath on exertion Sleep apnea Somatic dysfunction of pelvic region Stage 3b chronic kidney disease Walker as ambulation aid Wears dentures Wears glasses Wears hearing aid Home Medications pantoprazole 40 mg tablet,delayed release 40 mg PO DAILY reflux 03/28/14 [History Last Taken 03/09/22] ammonium lactate 12 % lotion 1 applic topical QD-BID PRN dry skin 02/06/18 [History Last Taken Unknown] triamcinolone acetonide 55 mcg nasal spray aerosol (Nasacort) 2 spray intranasal DAILY allergies 09/04/18 [History Last Taken 03/09/22] handicap placcard #1 ea 09/28/19 [Rx Last Taken Unknown] ascorbate calcium (vitamin C) 500 mg tablet 500 mg PO DAILY Bone strength 05/03/20 [History Last Taken 03/09/22] coenzyme Q10 100 mg capsule (Co Q-10) 100 mg PO DAILY 05/03/20 [History Last Taken Unknown] cholecalciferol (vitamin D3) 100 mcg (4,000 unit) tablet 100 mcg PO DAILY 11/03/20 [History Last Taken Unknown] spacer #1 ea 01/12/21 [Rx Last Taken Unknown] nitroglycerin 0.4 mg sublingual tablet (Nitrostat) 0.4 mg sublingual Q5-15M PRN chest pain #25 tabs 11/01/21 [Rx Last Taken Unknown] albuterol sulfate 90 mcg/actuation aerosol inhaler (Ventolin HFA) 2 inh inhalation Q4H PRN shortness of breath or wheezing #18 grams 11/27/21 [Rx Last Taken Unknown] atorvastatin 40 mg tablet 40 mg PO QODAY cholesterol #45 tabs 02/20/22 [Rx Last Taken 03/08/22] ipratropium 0.5 mg-albuterol 3 mg (2.5 mg base)/3 mL nebulization soln 3 ml inhalation 4X/DAY PRN PRN shortness of breath or wheezing #90 mL 02/21/22 [Rx Last Taken 03/09/22] ipratropium bromide 42 mcg (0.06 %) nasal spray 2 spray intranasal TID-QID PRN allergy symptoms #15 mL 02/21/22 [Rx Last Taken Unknown] budesonide-formoterol HFA 160 mcg-4.5 mcg/actuation aerosol inhaler (Symbicort) 2 puff inhalation BID Respitory 03/09/22 [History Last Taken 03/06/22] montelukast 10 mg tablet 10 mg PO QHS Respiratory 03/09/22 [History Last Taken 03/08/22] acetaminophen 500 mg tablet 1,000 mg PO Q6H PRN PRN Pain Score 1-10 #0 tabs 03/19/22 [Rx Last Taken Unknown] ropinirole 0.5 mg tablet 0.5 mg PO TID 04/22/22 [History Last Taken Unknown] carvedilol 25 mg tablet 25 mg PO BID #180 tabs 05/22/22 [Rx Last Taken Unknown] furosemide 40 mg tablet 40 mg PO DAILY #90 tabs 05/22/22 [Rx Last Taken Unknown] hydralazine 100 mg tablet 100 mg PO TID Disreguard previous RX: dose changed #360 tabs 05/22/22 [Rx Last Taken Unknown] isosorbide mononitrate 30 mg tablet,extended release 24 hr 30 mg PO DAILY 05/22/22 [History Last Taken Unknown] aspirin 81 mg chewable tablet 81 mg PO QHS heart health 05/30/22 [History Last Taken Unknown] loratadine 10 mg tablet 10 mg PO DAILY 05/30/22 [History Last Taken Unknown] metformin 850 mg tablet 850 mg PO BID Blood Glucose 05/30/22 [History Last Taken Unknown] Allergy/AdvReac Type Severity Reaction Status Date / Time cilostazol [From Pletal] Allergy Unknown Verified 06/02/22 22:07 felodipine Allergy Hives Verified 06/02/22 22:07 levofloxacin Allergy Hives Verified 06/02/22 22:07 Sulfa (Sulfonamide Allergy Unknown Verified 06/02/22 22:07 Antibiotics) Family History (Updated 06/03/22 @ 03:[address] Audra Schneider MD) Father Diabetes Cancer Prostate cancer Mother Dementia Surgical History H/O aortic aneurysm repair (11/1998) History of coronary artery stent placement (02/17/08) History of endarterectomy (07/2018) History of hernia repair History of left heart catheterization (03/2014) History of transurethral resection of prostate History of vascular surgery (08/2018) Social History household members: spouse Smoking Status: Former smoker how long ago did patient quit smokin years ago alcohol intake: current alcohol intake frequency: holidays/special occasions only details: hx of alcohol abuse substance use type: does not use caffeine: No what type of physical activity do you participate in: other details: Nustep frequency: 5-6 times per week duration: 15-30 minutes/day seatbelt use: always do you feel safe at home: Yes ROS Constitutional Constitutional: Reports fatigue; Denies anorexia Eyes Eyes: Denies blurry vision ENT HEENT: Denies abnormal hearing Cardiovascular Cardiovascular: Reports chest pain Respiratory/Chest Respiratory/Chest: Reports dyspnea and shortness of breath at rest Gastrointestinal Gastrointestinal: Denies abdominal pain, constipation, diarrhea, melena, nausea or rectal bleeding Genitourinary Genitourinary: Denies change in urinary stream Musculoskeletal Musculoskeletal: Denies abnormal gait Integumentary Integumentary: Denies jaundice Neurologic Neurologic: Denies dizziness Psychiatric Psychiatric: Denies anxiety Physical Exam Const alert and oriented x3 HEENT normocephalic Eyes PERRL Chest inspection of chest normal Resp normal respiratory effort Cardio Rate: regular rate Rhythm: regular rhythm GI soft to palpation, non-tender and non-distended Extremity normal to inspection Skin no rashes or lesions noted Neuro CN's II-XII intact bilaterally Lab / Micro Data Result Diagrams: 06/06/22 05:30 06/06/22 05:30 Labs: Laboratory Results - last 24 hr 06/05/22 11:21: POC Glucose 130 H 06/05/22 17:37: POC Glucose 155 H 06/05/22 20:40: POC Glucose 181 H 06/06/22 05:30: WBC 9.4, RBC 2.78 L, Hgb 8.1 L, Hct 25.2 L, MCV 90.6, MCH 29.1, MCHC 32.1 D, RDW Std Deviation 44.7 H, RDW Coeff of Justin 14.2, Plt Count 297, MPV 11.3, Immature Gran % (Auto) 0.500, Neut % (Auto) 68.1, Lymph % (Auto) 20.4, [place] % (Auto) 8.8, Eos % (Auto) 1.8, Baso % (Auto) 0.4, Absolute Neuts (auto) 6.4, Absolute Lymphs (auto) 1.91, Nucleated RBC % 0 06/06/22 05:30: Sodium 138, Potassium 3.7, Chloride 103, Carbon Dioxide 26.0, Anion Gap 9, BUN 18, Creatinine 1.22, Estim Creat Clear Calc 46.54, Est GFR (MDRD) Af Amer 73, Est GFR (MDRD) Non-Af 60, BUN/Creatinine Ratio 14.8, Glucose 142 H, Calcium 8.9 06/06/22 06:51: POC Glucose 151 H Micro: Microbiology 06/03/22 04:35 Sputum, Expectorated/Coughed Gram Stain - Final 06/03/22 04:35 Sputum, Expectorated/Coughed Respiratory Culture - Final Radiology Impression Abdomen/Pelvis CT 06/06/22 08:07 IMPRESSION: New bilateral pleural effusions with bibasilar atelectasis and/or infiltrates worse at the right lung base. The remainder of the examination is unchanged. Electronically Signed: Yemi Clifton MD at 11:04 EDT ,
[2022-06-06 11:31] LABS: Bedside Glucose 166 mg/dL (74-106)
--- NOTE | 2022-06-06 11:48 | DCINST_ITS ---
Discharge Instructions Diet Discharge Diet: Low fat / Low cholesterol Activity Discharge Activity: Return to Normal Activity Dressing / Incision Call your doctor if you observe: Fever of 101 or Higher, Shortness of breath, Dizziness and Chest pain Follow Up Care Test Results: Test results from this visit will be discussed in further detail at your follow- up appointment, if applicable. Discharge Plan Admission Admit Date/Time: 06/03/22 13:46 Primary Reason for Your Visit: Pneumonia, chest pain, anemia, colon tumor Attending Provider: Ben Rubi Primary Care Provider: Emeka Horn Consulting Providers: Brandon Mar ; Audra Schneider ; Tracey Orantes ; Friend,Mg ; Fabrice Garcia Discharge Orders/Prescriptions Prescriptions: New amoxicillin-pot clavulanate 875-125 mg tablet 1 tab PO BID 3 Days Qty: 6 0RF ferrous sulfate 325 mg (65 mg iron) tablet 325 mg PO BID Qty: 60 0RF Continued ammonium lactate 12 % lotion 1 applic TOPICAL QD-BID PRN (Reason: dry skin ) triamcinolone acetonide [Nasacort] 55 mcg aerosol,spray 2 spray INTRANASAL DAILY (DME) handicap placcard Qty: 1 0RF Rx Instructions: Lifetime: debility coenzyme Q10 [Co Q-10] 100 mg capsule 100 mg PO DAILY ascorbate calcium (vitamin C) 500 mg tablet 500 mg PO DAILY cholecalciferol (vitamin D3) 100 mcg (4,000 unit) tablet 100 mcg (4,000 unit) tablet 100 mcg PO DAILY (DME) spacer See Rx Instructions .ROUTE .MEDSUPPLY Qty: 1 0RF Rx Instructions: As directed nitroglycerin [Nitrostat] 0.4 mg tablet, sublingual 0.4 mg SUBLINGUAL Q5-15M PRN (Reason: chest pain) Qty: 25 2RF ipratropium-albuterol 0.5 mg-3 mg(2.5 mg base)/3 mL solution for nebulization 3 ml inhalation 4X/DAY PRN PRN (Reason: shortness of breath or wheezing) Qty: 90 6RF ipratropium bromide 42 mcg (0.06 %) spray,non-aerosol 2 spray INTRANASAL TID-QID PRN (Reason: allergy symptoms) Qty: 15 6RF Rx Instructions: nasal drip - administer into each nostril; wait 30 seconds between sprays loratadine 10 mg tablet 10 mg PO DAILY Label Comments: TAKE 1 TABLET EVERY DAY for allergies. pantoprazole 40 MG tablet 40 mg PO DAILY Label Comments: acid reflux aspirin 81 mg tablet,chewable 81 mg PO QHS Label Comments: antiplatelet montelukast 10 mg tablet 10 mg PO QHS budesonide-formoterol [Symbicort] 160-4.5 mcg/actuation HFA aerosol inhaler 2 puff INHALATION BID Rx Instructions: administer with spacer, rinse mouth after each use acetaminophen 500 mg Tablet 1,000 mg PO Q6H PRN PRN (Reason: Pain Score 1-10) Qty: 0 0RF ropinirole 0.5 mg Tablet 0.5 mg PO TID isosorbide mononitrate 30 mg tablet extended release 24 hr 30 mg PO DAILY albuterol sulfate [Ventolin HFA] 90 mcg/actuation HFA aerosol inhaler 2 inh INHALATION Q4H PRN (Reason: shortness of breath or wheezing) Qty: 18 6RF atorvastatin 40 mg tablet 40 mg PO QODAY Qty: 45 3RF furosemide 40 mg tablet 40 mg PO DAILY Qty: 90 3RF hydralazine 100 mg tablet 100 mg PO TID Qty: 360 3RF carvedilol 25 mg tablet 25 mg PO BID Qty: 180 3RF Rx Instructions: must administer with a meal/food Held metformin 850 mg tablet 850 mg PO BID Hold Instructions: Resume on 06/08/22. Referrals / Follow Up: Fabrice Garcia MD [Med Staff - Active Staff] - Within 1 Week Emeka Horn MD [Primary Care Provider] - 06/13/22 11:40 am (May transition to [place] [facility] per patient request.) Laura Farias PA [Med Staff - Adv Practice Prof] - Within 1 Week Disposition Disposition (needs filled in before D/C Order can be placed): Home, Self Care
--- NOTE | 2022-06-06 12:06 | CASEMGMT ---
This RN CM to room to discuss d/c plan and pt states no concerns with going home at time of discharge. Pt declines need for any further OP or HHC therapy at discharge and pt voices no further questions/concerns/needs. [place] RN CM
--- NOTE | 2022-06-06 12:08 | DS.PCM_ITS ---
Documented by User: Bijal Mccurdy NP, AC/DC REWINDER-C 06/06/22 12:18 Providers Date of Admission: 06/03/22 Date of Discharge: 06/06/22 Primary Care Physician: Dr. Emeka Horn MD Consultations 06/03/22 03:11 Consult: Cardiology Routine Consulting Provider: Brandon Mar Reason for Consult: Chest Pain, EKG changes EMERGENT Consult: No MD Notified: Yes Date Notified: 06/03/22 Time Notified: 02:13 Method of Notification: ED Physician Initiated 06/04/22 09:41 Consult: Gastroenterology Routine Consulting Provider: Mg Jo Reason for Consult: Anemia EMERGENT Consult: No MD Notified: Yes Date Notified: 06/04/22 Time Notified: 09:43 Method of Notification: Text 06/05/22 19:34 Consult: General Surgery Routine Consulting Provider: Fabrice Garcia Reason for Consult: Colonic Mass EMERGENT Consult: No MD Notified: Yes Date Notified: 06/05/22 Time Notified: 19:34 Method of Notification: Text Comments:: Was notified by Dr Jo Reason For Visit: CHEST PAIN / ? UA / PNA Diagnosis Discharge Diagnosis (1) Pneumonia: Status: Acute Code(s): J18.9 - Pneumonia, unspecified organism (2) Unstable angina: Status: Acute Code(s): I20.0 - Unstable angina (3) Atherosclerotic heart disease of [place] coronary artery without angina pectoris: Status: Chronic Code(s): I25.10 - Atherosclerotic heart disease of [place] coronary artery without angina pectoris Qualifiers: [place] vs. transplanted heart: [place] heart Qualified Code(s): I25.10 - Atherosclerotic heart disease of [place] coronary artery without angina pectoris (4) Colon polyp: Status: Acute Code(s): K63.5 - Polyp of colon Medications at Discharge Home Medications pantoprazole 40 mg tablet,delayed release 40 mg PO DAILY reflux 03/28/14 ammonium lactate 12 % lotion 1 applic topical QD-BID PRN dry skin 02/06/18 triamcinolone acetonide 55 mcg nasal spray aerosol (Nasacort) 2 spray intranasal DAILY allergies 09/04/18 handicap placcard #1 ea 09/28/19 ascorbate calcium (vitamin C) 500 mg tablet 500 mg PO DAILY Bone strength 07/28/20 coenzyme Q10 100 mg capsule (Co Q-10) 100 mg PO DAILY 05/03/20 cholecalciferol (vitamin D3) 100 mcg (4,000 unit) tablet 100 mcg PO DAILY 11/03/20 spacer #1 ea 01/12/21 nitroglycerin 0.4 mg sublingual tablet (Nitrostat) 0.4 mg sublingual Q5-15M PRN chest pain #25 tabs 11/01/21 albuterol sulfate 90 mcg/actuation aerosol inhaler (Ventolin HFA) 2 inh inhalation Q4H PRN shortness of breath or wheezing #18 grams 11/27/21 atorvastatin 40 mg tablet 40 mg PO QODAY cholesterol #45 tabs 02/20/22 ipratropium 0.5 mg-albuterol 3 mg (2.5 mg base)/3 mL nebulization soln 3 ml inhalation 4X/DAY PRN PRN shortness of breath or wheezing #90 mL 02/21/22 ipratropium bromide 42 mcg (0.06 %) nasal spray 2 spray intranasal TID-QID PRN allergy symptoms #15 mL 02/21/22 budesonide-formoterol HFA 160 mcg-4.5 mcg/actuation aerosol inhaler (Symbicort) 2 puff inhalation BID Respitory 03/09/22 montelukast 10 mg tablet 10 mg PO QHS Respiratory 03/09/22 acetaminophen 500 mg tablet 1,000 mg PO Q6H PRN PRN Pain Score 1-10 #0 tabs ropinirole 0.5 mg tablet 0.5 mg PO TID 04/22/22 carvedilol 25 mg tablet 25 mg PO BID #180 tabs 05/22/22 furosemide 40 mg tablet 40 mg PO DAILY #90 tabs 05/22/22 hydralazine 100 mg tablet 100 mg PO TID Disreguard previous RX: dose changed #360 tabs 05/22/22 isosorbide mononitrate 30 mg tablet,extended release 24 hr 30 mg PO DAILY 05/22/22 aspirin 81 mg chewable tablet 81 mg PO QHS heart health 05/30/22 loratadine 10 mg tablet 10 mg PO DAILY 05/30/22 metformin 850 mg tablet 850 mg PO BID Blood Glucose 05/30/22 amoxicillin 875 mg-potassium clavulanate 125 mg tablet 1 tab PO BID 3 days #6 tabs 06/06/22 ferrous sulfate 325 mg (65 mg iron) tablet 325 mg PO BID #60 tabs 06/06/22 Hospital Course Operations None Procedures Colonoscopy and EGD Summary of Care Provided Hospital Course: Patient is an 86-year-old male admitted 06/03/2022 due to chest pain, dyspnea. 1.? Right upper lobe community-acquired pneumonia-oxygen now stable on room air.? Not documented to be hypoxic.? IV azithromycin and IV Rocephin during admission. Transition to Augmentin at discharge to complete course.? Sputum culture normal respiratory irish.? Follow-up with PCP in 1 week. 2. Chest pain, EKG changes-cardiology consulted during admission. Continue medical management.? Plan for medical management and outpatient follow-up. Follow-up with cardiology in 1 week. If patient does require surgery, will need cardiology clearance. 3. Acute on chronic normocytic anemia-stool negative for occult blood.? Iron studies with iron deficiency.? IV iron x2 during admission.? Discharged on oral iron supplementation. GI consulted.? Underwent EGD/colonoscopy which demonstrated severe diverticulosis, no evidence of bleeding. Tumor in the ascending colon which was biopsied. Normal esophagus, medium sized hiatal hernia. Recommend repeat CBC in 1 week. 4. Colon mass-await biopsy results. General surgery consulted during admission. Follow-up with general surgery within 1 week for further management and recommendations. 5. Chronic COPD/asthma-continue home inhaler regimen. 6. Hypertension-stable, continue Coreg, Lasix, hydralazine, isosorbide. 7. Hyperlipidemia-continue statin. 8. Type 2 diabetes mellitus-continue home regimen. 9. Chronic kidney disease stage IIIb-appears at baseline. 10. Restless leg syndrome-continue Requip. 11. Former tobacco use-encouraged cessation. 12. History of AAA-status post repair 1998. 13. GERD-continue PPI. 14. MARIXA- continue BIPAP. 15. CAD with history of PCI-continue aspirin, statin, carvedilol, isosorbide. Physical Exam Const alert and oriented x3 HEENT normocephalic Mouth: dry mucous membranes Eyes PERRL, EOMs intact bilaterally and conjunctivae normal Neck no lymphadenopathy Resp clear to auscultation bilaterally Auscultation: diminished lung sounds Cardio regular rate, regular rhythm and no murmurs Peripheral Pulses: pulses 2+ throughout GI normal to inspection, nondistended, normoactive bowel sounds, non-tender and non-distended Extremity normal to inspection Skin no rashes or lesions noted Lesions: no lesions Rashes: no rashes Trauma: no lacerations or abrasions Neuro CN's II-XII intact bilaterally, no focal motor deficits, no sensory deficits noted and deep tendon reflexes 2+ bilaterally Psych mental status grossly normal and affect normal Patient seen and examined prior to discharge. Physical assessment as noted above. Patient is stable for discharge with follow up recommendations as noted above. This patient was seen by ANNA Sanchez under the supervision of Dr. Rubi. Time spent examining patient, reviewing data and subsequent management of care: 24 minutes Weight / BMI Weight Weight: 198 lb 10.184 oz Body Mass Index (BMI) 27.6 ABG / Lab / Microbiology Data Result Diagrams: 06/06/22 05:30 06/06/22 05:30 Laboratory: Laboratory Results - last 24 hr 06/05/22 17:37: POC Glucose 155 H 06/05/22 20:40: POC Glucose 181 H 06/06/22 05:30: WBC 9.4, RBC 2.78 L, Hgb 8.1 L, Hct 25.2 L, MCV 90.6, MCH 29.1, MCHC 32.1 D, RDW Std Deviation 44.7 H, RDW Coeff of Justin 14.2, Plt Count 297, MPV 11.3, Immature Gran % (Auto) 0.500, Neut % (Auto) 68.1, Lymph % (Auto) 20.4, [place] % (Auto) 8.8, Eos % (Auto) 1.8, Baso % (Auto) 0.4, Absolute Neuts (auto) 6.4, Absolute Lymphs (auto) 1.91, Nucleated RBC % 0 06/06/22 05:30: Sodium 138, Potassium 3.7, Chloride 103, Carbon Dioxide 26.0, Anion Gap 9, BUN 18, Creatinine 1.22, Estim Creat Clear Calc 46.54, Est GFR (MDRD) Af Amer 73, Est GFR (MDRD) Non-Af 60, BUN/Creatinine Ratio 14.8, Glucose 142 H, Calcium 8.9 06/06/22 06:51: POC Glucose 151 H 06/06/22 11:07: POC Glucose 166 H Microbiology: Microbiology 06/03/22 04:35 Sputum, Expectorated/Coughed Gram Stain - Final 06/03/22 04:35 Sputum, Expectorated/Coughed Respiratory Culture - Final 06/03/22 18:26 Stool Stool Occult Blood (YI) - Final 06/03/22 02:38 Mucosa - Nasopharyngeal Respiratory Panel (PCR) - Final 06/03/22 03:40 Urine, Random Legionella Antigen - Final 06/03/22 03:40 Urine, Random Streptococcus pneumoniae Antigen (M - Final Radiography Diagnostic Testing: Radiology Impression Abdomen/Pelvis CT 06/06/22 08:07 IMPRESSION: New bilateral pleural effusions with bibasilar atelectasis and/or infiltrates worse at the right lung base. The remainder of the examination is unchanged. Electronically Signed: Yemi Clifton MD at 11:04 EDT , D/C Instructions Discharge Diet: Low fat / Low cholesterol Call your doctor if you observe: Fever of 101 or Higher, Shortness of breath, Dizziness and Chest pain Meaningful Use Info Meaningful Use Diagnoses (Choose all that apply): None applicable Discharge Plan Admission Admit Date/Time: 06/03/22 13:46 Primary Reason for Your Visit: Pneumonia, chest pain, anemia, colon tumor Attending Provider: Ben Rubi Primary Care Provider: Emeka Horn Consulting Providers: Brandon Mar ; Audra Schneider ; Tracey Orantes ; Mg Jo ; Fabrice Garcia Discharge Orders/Prescriptions Prescriptions: New amoxicillin-pot clavulanate 875-125 mg tablet 1 tab PO BID 3 Days Qty: 6 0RF ferrous sulfate 325 mg (65 mg iron) tablet 325 mg PO BID Qty: 60 0RF Continued ammonium lactate 12 % lotion 1 applic TOPICAL QD-BID PRN (Reason: dry skin ) triamcinolone acetonide [Nasacort] 55 mcg aerosol,spray 2 spray INTRANASAL DAILY (DME) handicap placcard Qty: 1 0RF Rx Instructions: Lifetime: debility coenzyme Q10 [Co Q-10] 100 mg capsule 100 mg PO DAILY ascorbate calcium (vitamin C) 500 mg tablet 500 mg PO DAILY cholecalciferol (vitamin D3) 100 mcg (4,000 unit) tablet 100 mcg (4,000 unit) tablet 100 mcg PO DAILY (DME) spacer See Rx Instructions .ROUTE .MEDSUPPLY Qty: 1 0RF Rx Instructions: As directed nitroglycerin [Nitrostat] 0.4 mg tablet, sublingual 0.4 mg SUBLINGUAL Q5-15M PRN (Reason: chest pain) Qty: 25 2RF ipratropium-albuterol 0.5 mg-3 mg(2.5 mg base)/3 mL solution for nebulization 3 ml inhalation 4X/DAY PRN PRN (Reason: shortness of breath or wheezing) Qty: 90 6RF ipratropium bromide 42 mcg (0.06 %) spray,non-aerosol 2 spray INTRANASAL TID-QID PRN (Reason: allergy symptoms) Qty: 15 6RF Rx Instructions: nasal drip - administer into each nostril; wait 30 seconds between sprays loratadine 10 mg tablet 10 mg PO DAILY Label Comments: TAKE 1 TABLET EVERY DAY for allergies. pantoprazole 40 MG tablet 40 mg PO DAILY Label Comments: acid reflux aspirin 81 mg tablet,chewable 81 mg PO QHS Label Comments: antiplatelet montelukast 10 mg tablet 10 mg PO QHS budesonide-formoterol [Symbicort] 160-4.5 mcg/actuation HFA aerosol inhaler 2 puff INHALATION BID Rx Instructions: administer with spacer, rinse mouth after each use acetaminophen 500 mg Tablet 1,000 mg PO Q6H PRN PRN (Reason: Pain Score 1-10) Qty: 0 0RF ropinirole 0.5 mg Tablet 0.5 mg PO TID isosorbide mononitrate 30 mg tablet extended release 24 hr 30 mg PO DAILY albuterol sulfate [Ventolin HFA] 90 mcg/actuation HFA aerosol inhaler 2 inh INHALATION Q4H PRN (Reason: shortness of breath or wheezing) Qty: 18 6RF atorvastatin 40 mg tablet 40 mg PO QODAY Qty: 45 3RF furosemide 40 mg tablet 40 mg PO DAILY Qty: 90 3RF hydralazine 100 mg tablet 100 mg PO TID Qty: 360 3RF carvedilol 25 mg tablet 25 mg PO BID Qty: 180 3RF Rx Instructions: must administer with a meal/food Held metformin 850 mg tablet 850 mg PO BID Hold Instructions: Resume on 06/08/22. Referrals / Follow Up: Fabrice Garcia MD [Med Staff - Active Staff] - 06/14/22 8:45 am Caorlynn Whitman MD [Med Staff - Active Staff] - 06/12/22 1:15 pm Marguerite Jennings NP, ROXANN-C [Non-Staff -Ordering Privileges] - 06/13/22 2:00 pm Disposition Disposition (needs filled in before D/C Order can be placed): Home, Self Care Documented by User: Dr. Ben Rubi DO 06/06/22 13:23 Providers Date of Admission: 06/03/22 Reason For Visit: CHEST PAIN / ? UA / PNA Diagnosis Discharge Diagnosis (1) Pneumonia: Status: Acute Code(s): J18.9 - Pneumonia, unspecified organism (2) Unstable angina: Status: Acute Code(s): I20.0 - Unstable angina (3) Atherosclerotic heart disease of [place] coronary artery without angina pectoris: Status: Chronic Code(s): I25.10 - Atherosclerotic heart disease of [place] coronary artery without angina pectoris Qualifiers: [place] vs. transplanted heart: [place] heart Qualified Code(s): I25.10 - Atherosclerotic heart disease of [place] coronary artery without angina pectoris (4) Colon polyp: Status: Acute Code(s): K63.5 - Polyp of colon Medications at Discharge Home Medications pantoprazole 40 mg tablet,delayed release 40 mg PO DAILY reflux 03/28/14 ammonium lactate 12 % lotion 1 applic topical QD-BID PRN dry skin 02/06/18 triamcinolone acetonide 55 mcg nasal spray aerosol (Nasacort) 2 spray intranasal DAILY allergies 09/04/18 handicap placcard #1 ea 09/28/19 ascorbate calcium (vitamin C) 500 mg tablet 500 mg PO DAILY Bone strength 05/03/20 coenzyme Q10 100 mg capsule (Co Q-10) 100 mg PO DAILY 05/03/20 cholecalciferol (vitamin D3) 100 mcg (4,000 unit) tablet 100 mcg PO DAILY 10/08 05/27 spacer #1 ea 01/12/21 nitroglycerin 0.4 mg sublingual tablet (Nitrostat) 0.4 mg sublingual Q5-15M PRN chest pain #25 tabs 11/01/21 albuterol sulfate 90 mcg/actuation aerosol inhaler (Ventolin HFA) 2 inh inhalation Q4H PRN shortness of breath or wheezing #18 grams 11/27/21 atorvastatin 40 mg tablet 40 mg PO QODAY cholesterol #45 tabs 02/20/22 ipratropium 0.5 mg-albuterol 3 mg (2.5 mg base)/3 mL nebulization soln 3 ml inhalation 4X/DAY PRN PRN shortness of breath or wheezing #90 mL 02/21/22 ipratropium bromide 42 mcg (0.06 %) nasal spray 2 spray intranasal TID-QID PRN allergy symptoms #15 mL 02/21/22 budesonide-formoterol HFA 160 mcg-4.5 mcg/actuation aerosol inhaler (Symbicort) 2 puff inhalation BID Respitory 03/09/22 montelukast 10 mg tablet 10 mg PO QHS Respiratory 03/09/22 acetaminophen 500 mg tablet 1,000 mg PO Q6H PRN PRN Pain Score 1-10 #0 tabs 03/19/22 ropinirole 0.5 mg tablet 0.5 mg PO TID 04/22/22 carvedilol 25 mg tablet 25 mg PO BID #180 tabs 05/22/22 furosemide 40 mg tablet 40 mg PO DAILY #90 tabs 05/22/22 hydralazine 100 mg tablet 100 mg PO TID Disreguard previous RX: dose changed #360 tabs 05/22/22 isosorbide mononitrate 30 mg tablet,extended release 24 hr 30 mg PO DAILY 05/22/22 aspirin 81 mg chewable tablet 81 mg PO QHS heart health 05/30/22 loratadine 10 mg tablet 10 mg PO DAILY 05/30/22 metformin 850 mg tablet 850 mg PO BID Blood Glucose 05/30/22 amoxicillin 875 mg-potassium clavulanate 125 mg tablet 1 tab PO BID 3 days #6 tabs 06/06/22 ferrous sulfate 325 mg (65 mg iron) tablet 325 mg PO BID #60 tabs 06/06/22 Hospital Course Summary of Care Provided Hospital Course: Patient is an 86-year-old male admitted 06/03/2022 due to chest pain, dyspnea. 1.? Right upper lobe community-acquired pneumonia-oxygen now stable on room air.? Not documented to be hypoxic.? IV azithromycin and IV Rocephin during admission. Transition to Augmentin at discharge to complete course.? Sputum culture normal respiratory irish.? Follow-up with PCP in 1 week. 2. Chest pain, EKG changes-cardiology consulted during admission. Continue medical management.? Plan for medical management and outpatient follow-up. Follow-up with cardiology in 1 week. If patient does require surgery, will need cardiology clearance. 3. Acute on chronic normocytic anemia-stool negative for occult blood.? Iron studies with iron deficiency.? IV iron x2 during admission.? Discharged on oral iron supplementation. GI consulted.? Underwent EGD/colonoscopy which demonstrated severe diverticulosis, no evidence of bleeding. Tumor in the ascending colon which was biopsied. Normal esophagus, medium sized hiatal hernia. Recommend repeat CBC in 1 week. 4. Colon mass-await biopsy results. General surgery consulted during admission. Follow-up with general surgery within 1 week for further management and recommendations. 5. Chronic COPD/asthma-continue home inhaler regimen. 6. Hypertension-stable, continue Coreg, Lasix, hydralazine, isosorbide. 7. Hyperlipidemia-continue statin. 8. Type 2 diabetes mellitus-continue home regimen. 9. Chronic kidney disease stage IIIb-appears at baseline. 10. Restless leg syndrome-continue Requip. 11. Former tobacco use-encouraged cessation. 12. History of AAA-status post repair 1998. 13. GERD-continue PPI. 14. MARIXA- continue BIPAP. 15. CAD with history of PCI-continue aspirin, statin, carvedilol, isosorbide. Physical Exam Const alert and oriented x3 HEENT normocephalic Mouth: dry mucous membranes Eyes PERRL, EOMs intact bilaterally and conjunctivae normal Neck no lymphadenopathy Resp clear to auscultation bilaterally Auscultation: diminished lung sounds Cardio regular rate, regular rhythm and no murmurs Peripheral Pulses: pulses 2+ throughout GI normal to inspection, nondistended, normoactive bowel sounds, non-tender and non-distended Extremity normal to inspection Skin no rashes or lesions noted Lesions: no lesions Rashes: no rashes Trauma: no lacerations or abrasions Neuro CN's II-XII intact bilaterally, no focal motor deficits, no sensory deficits noted and deep tendon reflexes 2+ bilaterally Psych mental status grossly normal and affect normal Patient seen and examined prior to discharge. Physical assessment as noted above. Patient is stable for discharge with follow up recommendations as noted above. This patient was seen by ANNA Sanchez under the supervision of Dr. Rubi. Time spent examining patient, reviewing data and subsequent management of care: 24 minutes Patient seen and examined independently. Data and vitals reviewed. I agree with the above note by the nurse practitioner. This is an 86-year-old male presents with chest pain, cough and shortness of breath. Patient was found to have a pneumonia. Patient was started on ceftriaxone and azithromycin. Patient was seen by cardiology in regards to elevated troponins given his history of coronary artery disease. Cardiology will plan on doing further cardiac evaluation as outpatient but did recommend anemia work-up. While he was here, is noted that his hemoglobin was dropping and concern was for GI loss and gastroenterology was consulted. Patient underwent an EGD on the that showed an ascending colon mass. That was biopsied. General surgery was consulted for further evaluation. Discussed with Dr. Garcia who is very hesitant to proceed with any kind of surgery given his medical comorbidities. No surgery or procedures necessary at this time particular since the biopsies are still pending but did recommend a CT of his abdomen pelvis. That did not show any evidence of any obvious metastatic disease. Discussed with the patient explained that his situation is difficult in regards to if he does have colon cancer however things proceed and what would happen with his heart regards to if he requires stent. Patient will need to follow-up with cardiology as well as gastroenterology in regards to the biopsy results. Patient had previously been seeing Dr. Mendez in my [place]. Patient no longer wishes to follow-up with any [facility] physicians at present. He will follow-up with physicians at [facility]. Physical Exam Const alert Resp normal respiratory effort, no retractions and no use of accessory muscles Cardio regular rate, regular rhythm, S1 normal heart sound and S2 normal heart sound GI normal to inspection, nondistended, normoactive bowel sounds and soft to palpation ABG / Lab / Microbiology Data Result Diagrams: 06/06/22 05:30 06/06/22 05:30 Discharge Plan Admission Admit Date/Time: 06/03/22 13:46 Primary Reason for Your Visit: Pneumonia, chest pain, anemia, colon tumor Attending Provider: Ben Rubi Primary Care Provider: Emeka Horn Consulting Providers: Brandon Mar ; Audra Schneider ; Tracey Orantes ; Friend,Mg ; Fabrice Garcia Discharge Orders/Prescriptions Prescriptions: New amoxicillin-pot clavulanate 875-125 mg tablet 1 tab PO BID 3 Days Qty: 6 0RF ferrous sulfate 325 mg (65 mg iron) tablet 325 mg PO BID Qty: 60 0RF Continued ammonium lactate 12 % lotion 1 applic TOPICAL QD-BID PRN (Reason: dry skin ) triamcinolone acetonide [Nasacort] 55 mcg aerosol,spray 2 spray INTRANASAL DAILY (DME) handicap placcard Qty: 1 0RF Rx Instructions: Lifetime: debility coenzyme Q10 [Co Q-10] 100 mg capsule 100 mg PO DAILY ascorbate calcium (vitamin C) 500 mg tablet 500 mg PO DAILY cholecalciferol (vitamin D3) 100 mcg (4,000 unit) tablet 100 mcg (4,000 unit) tablet 100 mcg PO DAILY (DME) spacer See Rx Instructions .ROUTE .MEDSUPPLY Qty: 1 0RF Rx Instructions: As directed nitroglycerin [Nitrostat] 0.4 mg tablet, sublingual 0.4 mg SUBLINGUAL Q5-15M PRN (Reason: chest pain) Qty: 25 2RF ipratropium-albuterol 0.5 mg-3 mg(2.5 mg base)/3 mL solution for nebulization 3 ml inhalation 4X/DAY PRN PRN (Reason: shortness of breath or wheezing) Qty: 90 6RF ipratropium bromide 42 mcg (0.06 %) spray,non-aerosol 2 spray INTRANASAL TID-QID PRN (Reason: allergy symptoms) Qty: 15 6RF Rx Instructions: nasal drip - administer into each nostril; wait 30 seconds between sprays loratadine 10 mg tablet 10 mg PO DAILY Label Comments: TAKE 1 TABLET EVERY DAY for allergies. pantoprazole 40 MG tablet 40 mg PO DAILY Label Comments: acid reflux aspirin 81 mg tablet,chewable 81 mg PO QHS Label Comments: antiplatelet montelukast 10 mg tablet 10 mg PO QHS budesonide-formoterol [Symbicort] 160-4.5 mcg/actuation HFA aerosol inhaler 2 puff INHALATION BID Rx Instructions: administer with spacer, rinse mouth after each use acetaminophen 500 mg Tablet 1,000 mg PO Q6H PRN PRN (Reason: Pain Score 1-10) Qty: 0 0RF ropinirole 0.5 mg Tablet 0.5 mg PO TID isosorbide mononitrate 30 mg tablet extended release 24 hr 30 mg PO DAILY albuterol sulfate [Ventolin HFA] 90 mcg/actuation HFA aerosol inhaler 2 inh INHALATION Q4H PRN (Reason: shortness of breath or wheezing) Qty: 18 6RF atorvastatin 40 mg tablet 40 mg PO QODAY Qty: 45 3RF furosemide 40 mg tablet 40 mg PO DAILY Qty: 90 3RF hydralazine 100 mg tablet 100 mg PO TID Qty: 360 3RF carvedilol 25 mg tablet 25 mg PO BID Qty: 180 3RF Rx Instructions: must administer with a meal/food Held metformin 850 mg tablet 850 mg PO BID Hold Instructions: Resume on 06/08/22. Referrals / Follow Up: Fabrice Garcia MD [Med Staff - Active Staff] - 06/14/22 8:45 am Carolynn Whitman MD [Med Staff - Active Staff] - 06/12/22 1:15 pm Marguerite Jennings NP, AC/DC REWINDER-C [Non-Staff -Ordering Privileges] - 06/13/22 2:00 pm Disposition Disposition (needs filled in before D/C Order can be placed): Home, Self Care Charges/Coding Visit Charges Inpatient E&M: 30208 Disch Hosp
[2022-06-06] MEDS: Pramipexole Di-HCl 0.25 MG Tablet PO (13:31)
== END 2022-06-06 13:48 | disposition home or self-care (01) | DRG 194 ==
LOC: ED 06-03 02:01 → PCU 06-03 02:40
PROVIDERS: Internal Medicine Gastroenterology; Nurse Practitioner Family; Student in an Organized Health Care Education/Training Program; Admitting Provider Family Medicine; Emergency Provider Emergency Medicine; PCP Internal Medicine
PROC: 0DJD8ZZ Inspection of Lower Intestinal Tract, Via Natural or Artificial Opening Endoscopic (ICD-10-PCS; CPT 45378; principal; 2022-06-05 14:40)
DX: J18.9 Pneumonia, unspecified organism (principal); J44.0 Chronic obstructive pulmonary disease with (acute) lower respiratory infection; I25.110 Atherosclerotic heart disease of native coronary artery with unstable angina pectoris; D62 Acute posthemorrhagic anemia; D49.0 Neoplasm of unspecified behavior of digestive system; D50.9 Iron deficiency anemia, unspecified; E11.22 Type 2 diabetes mellitus with diabetic chronic kidney disease; E11.51 Type 2 diabetes mellitus with diabetic peripheral angiopathy without gangrene; N18.32 Chronic kidney disease, stage 3b; D64.9 Anemia, unspecified; E78.00 Pure hypercholesterolemia, unspecified; E78.5 Hyperlipidemia, unspecified; K21.9 Gastro-esophageal reflux disease without esophagitis; J30.9 Allergic rhinitis, unspecified; G25.81 Restless legs syndrome; G47.33 Obstructive sleep apnea (adult) (pediatric); I12.9 Hypertensive chronic kidney disease with stage 1 through stage 4 chronic kidney disease, or unspecified chronic kidney disease; K57.30 Diverticulosis of large intestine without perforation or abscess without bleeding; K44.9 Diaphragmatic hernia without obstruction or gangrene; K63.5 Polyp of colon; K57.90 Diverticulosis of intestine, part unspecified, without perforation or abscess without bleeding; Z79.82 Long term (current) use of aspirin; Z87.891 Personal history of nicotine dependence; Z79.51 Long term (current) use of inhaled steroids; Z90.49 Acquired absence of other specified parts of digestive tract; N50.89 Other specified disorders of the male genital organs; N45.2 Orchitis; Z80.42 Family history of malignant neoplasm of prostate; Z95.5 Presence of coronary angioplasty implant and graft
CPT/HCPCS: 36415; 71045; 74177; 80048; 80053; 80061; 82274; 82607; 82728; 82746; 82962; 83540; 83550; 83735; 84145; 84484; 85025; 85610; 85730; 87070; 87205; 87449; 87633; 87635; 88305; 92610; 93005; 94640; 94762; 97112; 97162; 97166; 97530; 97535; 99251; 99285; J7030; J7050; Q9967; A4216; A4648; G0463; J2405; J2916; J3490; U0003; U0005

== ENCOUNTER 2022-06-08 21:45 | Inpatient (IN) | payer MEDICARE, SELFPAY ==
[2022-06-08 21:46] VITALS: BP 198/95; PULSE 85; RESP 24; TEMP 36.8; O2SAT 95; BMI 27.9
[2022-06-08 21:59] VITALS: RESP 30; O2SAT 92
--- NOTE | 2022-06-08 22:02 | RAD_ITS ---
STUDY: X-RAY CHEST REASON FOR EXAM: Male, 86 years old. shortness of breath TECHNIQUE: Single AP portable view of the chest. COMPARISON: 06/02/2022 FINDINGS: There is hyperinflation of the lungs consistent with chronic obstructive lung disease (COPD). There is no demonstrated pleural abnormality. Normal size heart. Normal mediastinum and frank. Normal visualized pulmonary arteries. Normal visualized aortic arch and descending thoracic aorta. Normal visualized thoracic spine. Healed fracture the right clavicle after open reduction internal fixation with a plate and screws. There is no demonstrated abnormality of the visualized soft tissue structures of the upper abdomen. RAD/Chest 1 View (Portable) IMPRESSION: Emphysema without pneumonia or atelectasis. Electronically Signed: Colton Macdonald MD at 22:18 EDT ,
[2022-06-08 22:23] LABS: Absolute Lymphocyte Count 2.64 X10^3/uL (0.83-4.51); Absolute Neutrophil Count 7.1 X10^3/uL (2.0-7.7); Basophil# 0.04 X10^3/uL; Basophil% 0.4 % (0-1); Eosinophils% 1.8 % (0-5); Hematocrit 30.8 % (40-54); Hemoglobin 9.3 g/dL (13.0-16.5); Lymphocyte # 2.64 X10^3/ul (0.83-4.51); Lymphocyte % 23.8 % (19-41); Mean Corp Hgb Conc 30.2 g/dL (32-36); Mean Corpuscular Hgb 26.7 pg (27.0-32.0); Mean Corpuscular Volume 88.5 fL (80-94); Mean Platelet Vol. 11.4 fl (6.2-12.0); Monocyte# 0.94 X10^3/uL; Monocyte% 8.5 % (0-10); NRBC Flagged by Analyzer 0.2 % (0-5); Neutrophil # 7.11 X10^3/uL (2.7-7.7); Neutrophil % 64.1 % (47-70); Platelet Count 404 K/mm3 (150-450); RBC Distribution Width CV 15.1 % (11.6-14.6); RBC Distribution Width SD 46.4 fl (35.1-43.9); Red Blood Count 3.48 M/mm3 (4.6-6.2); White Blood Count 11.1 K/mm3 (4.4-11.0)
[2022-06-08 22:25] LABS: Anion Gap 9 (5-15); BUN 17 mg/dL (7-18); Calcium,Total 9.4 mg/dL (8.5-10.1); Chloride 104 mmol/L (98-107); Creatinine, Serum 1.55 mg/dL (0.70-1.30); EST Glomerular Filtration Rate 46 mL/min (>60); Est Glom Filt Rate - Afr Amer 55 mL/min (>60); Estimated Creatinine Clearance 36.63 ml/min; Glucose 174 mg/dL (74-106); Potassium 4.1 mmol/L (3.5-5.1); Sodium Level 138 mmol/L (136-145)
--- NOTE | 2022-06-08 22:37 | EKG12_ITS ---
Test Reason : SOB Blood Pressure : / mmHG Vent. Rate : 066 BPM Atrial Rate : 066 BPM P-R Int : 240 ms QRS Dur : 096 ms QT Int : 462 ms P-R-T Axes : 058 049 -26 degrees QTc Int : 484 ms Sinus rhythm with 1st degree A-V block with Premature supraventricular complexes Left ventricular hypertrophy with repolarization abnormality ( Sokolow-Javed ) Prolonged QT Abnormal ECG Confirmed by RICHA SMITH, FARRAH ([id number]), scientific editor LASHANDA GARNETT ([id number]) on 06/12/2022 9:01:34 AM Referred By: MARY Confirmed By:EUGENIE CHAUDHRY MD
--- NOTE | 2022-06-08 22:38 | ED.VIS.DYS ---
HPI History of Present Illness Chief Complaint: Shortness of Breath Informant: patient and spouse/S.O. Onset/Context/Timing Onset: Days (3) Context: gradual Timing: Continuous Quality: Positive for Wheezing Current Severity: Mild Maximum Severity: Severe Worsened by: Exertion Relieved by: Albuterol and - (DuoNeb treatment en route by EMS; sometimes better after coughing up sputum) Associated Symptoms cough Chest Pain: Positive for None Narrative Narrative: Patient was discharged 3 days ago after being admitted for pneumonia at the bases bilaterally. He has been on Augmentin since discharge after being treated with IV antibiotics inpatient, his last dose is tomorrow morning. He is COPD/asthma. He is dates he was using his nebulizer 4 times per day when he was not ill, and continued doing so while he was in the hospital without any significant problems or flareups until he got home, he states he probably should have been using it more often but he has not been, but he does feel like it is COPD/asthma. He is not on home oxygen. He has chronic edema in his legs he states is no worse than usual. He denies any other new problems. He states he has been doing a lot of coughing, he describes bronchospasm, when he finally coughs up some sputum, it does help temporarily. [facility] Medical History Abdominal aortic aneurysm (AAA) Acute cystitis with hematuria Ambulates with cane Anemia Aortic aneurysm Arthritis Asthma Atherosclerotic heart disease of [place] coronary artery without angina pectoris Back pain BiPAP (biphasic positive airway pressure) dependence Cancer Cardiology follow-up encounter Carotid bruit Chest pain Chronic constipation Chronic cough Colon polyp COPD (chronic obstructive pulmonary disease) Coronary artery disease Daytime hypersomnia DDD (degenerative disc disease), lumbar Diabetes DM2 (diabetes mellitus, type 2) Dyslipidemia Easy bruising Essential (primary) hypertension Former smoker Gastric reflux High cholesterol History of echocardiogram History of edema History of heart attack History of hiatal hernia History of irregular heartbeat History of pain when walking History of renal disease History of steroid therapy History of stress test HLD (hyperlipidemia) Hoarseness Hypertension Injury of back Kidney stone Leg cramps MARIXA (obstructive sleep apnea) Overweight Patellar bursitis of right knee Peripheral vascular disease of extremity with claudication Pre-syncope PVD (peripheral vascular disease) Rectus sheath hematoma Recurrent urinary tract infection Restless legs Restless legs syndrome Seasonal allergies Shortness of breath on exertion Sleep apnea Somatic dysfunction of pelvic region Stage 3b chronic kidney disease Walker as ambulation aid Wears dentures Wears glasses Wears hearing aid Home Medications pantoprazole 40 mg tablet,delayed release 40 mg PO DAILY reflux 03/28/14 [History Last Taken 03/09/22] ammonium lactate 12 % lotion 1 applic topical QD-BID PRN dry skin 02/06/18 [History Last Taken Unknown] triamcinolone acetonide 55 mcg nasal spray aerosol (Nasacort) 2 spray intranasal DAILY allergies 09/04/18 [History Last Taken 03/09/22] handicap placcard #1 ea 09/28/19 [Rx Last Taken Unknown] ascorbate calcium (vitamin C) 500 mg tablet 500 mg PO DAILY Bone strength 05/03/20 [History Last Taken 03/09/22] coenzyme Q10 100 mg capsule (Co Q-10) 100 mg PO DAILY 05/03/20 [History Last Taken Unknown] cholecalciferol (vitamin D3) 100 mcg (4,000 unit) tablet 100 mcg PO DAILY 11/03/20 [History Last Taken Unknown] spacer #1 ea 01/12/21 [Rx Last Taken Unknown] albuterol sulfate 90 mcg/actuation aerosol inhaler (Ventolin HFA) 2 inh inhalation Q4H PRN shortness of breath or wheezing #18 grams 11/27/21 [Rx Last Taken Unknown] atorvastatin 40 mg tablet 40 mg PO QODAY cholesterol #45 tabs 02/20/22 [Rx Last Taken 03/08/22] ipratropium 0.5 mg-albuterol 3 mg (2.5 mg base)/3 mL nebulization soln 3 ml inhalation 4X/DAY PRN PRN shortness of breath or wheezing #90 mL 02/21/22 [Rx Last Taken 03/09/22] ipratropium bromide 42 mcg (0.06 %) nasal spray 2 spray intranasal TID-QID PRN allergy symptoms #15 mL 02/21/22 [Rx Last Taken Unknown] budesonide-formoterol HFA 160 mcg-4.5 mcg/actuation aerosol inhaler (Symbicort) 2 puff inhalation BID Respitory 03/09/22 [History Last Taken 03/06/22] montelukast 10 mg tablet 10 mg PO QHS Respiratory 03/09/22 [History Last Taken 03/08/22] acetaminophen 500 mg tablet 1,000 mg PO Q6H PRN PRN Pain Score 1-10 #0 tabs 03/19/22 [Rx Last Taken Unknown] ropinirole 0.5 mg tablet 0.5 mg PO TID 04/22/22 [History Last Taken Unknown] carvedilol 25 mg tablet 25 mg PO BID #180 tabs 05/22/22 [Rx Last Taken Unknown] furosemide 40 mg tablet 40 mg PO DAILY #90 tabs 05/22/22 [Rx Last Taken Unknown] hydralazine 100 mg tablet 100 mg PO TID Disreguard previous RX: dose changed #360 tabs 05/22/22 [Rx Last Taken Unknown] isosorbide mononitrate 30 mg tablet,extended release 24 hr 30 mg PO DAILY 05/22/22 [History Last Taken Unknown] aspirin 81 mg chewable tablet 81 mg PO QHS heart health 05/30/22 [History Last Taken Unknown] loratadine 10 mg tablet 10 mg PO DAILY 05/30/22 [History Last Taken Unknown] metformin 850 mg tablet 850 mg PO BID Blood Glucose 05/30/22 [History Last Taken Unknown] amoxicillin 875 mg-potassium clavulanate 125 mg tablet 1 tab PO BID 3 days #6 tabs 06/06/22 [Rx Last Taken Unknown] ferrous sulfate 325 mg (65 mg iron) tablet 325 mg PO BID #60 tabs 06/06/22 [Rx Last Taken Unknown] nitroglycerin 0.4 mg sublingual tablet (Nitrostat) 0.4 mg sublingual Q5-15M PRN chest pain #25 tabs 06/08/22 [Rx Last Taken Unknown] Allergy/AdvReac Type Severity Reaction Status Date / Time cilostazol [From Pletal] Allergy Unknown Verified 06/02/22 22:07 felodipine Allergy Hives Verified 06/02/22 22:07 levofloxacin Allergy Hives Verified 06/02/22 22:07 Sulfa (Sulfonamide Allergy Unknown Verified 06/02/22 22:07 Antibiotics) Family History (Updated 06/03/22 @ 03:[address] Audra Schneider MD) Father Diabetes Cancer Prostate cancer Mother Dementia Surgical History H/O aortic aneurysm repair (11/1998) History of coronary artery stent placement (02/17/08) History of endarterectomy (07/2018) History of hernia repair History of left heart catheterization (03/2014) History of transurethral resection of prostate History of vascular surgery (08/2018) Social History household members: spouse Smoking Status: Former smoker how long ago did patient quit smokin years ago alcohol intake: current alcohol intake frequency: holidays/special occasions only details: hx of alcohol abuse substance use type: does not use caffeine: No what type of physical activity do you participate in: other details: Nustep frequency: 5-6 times per week duration: 15-30 minutes/day seatbelt use: always do you feel safe at home: Yes ROS ROS ED Constitutional Constitutional ED: Denies chills or fever(s) Eyes Eyes: Denies change in vision or diplopia ENT ENT ED: Denies rhinorrhea or sore throat Cardiovascular Cardiovascular: Reports edema; Denies chest pain or palpitations Respiratory/Chest Respiratory/Chest: Reports cough, dyspnea, sputum and wheezing Gastrointestinal Gastrointestinal: Reports other Details: bloating ; Denies abdominal pain, diarrhea, nausea or vomiting Genitourinary Genitourinary ED: Denies dysuria or hematuria Musculoskeletal Musculoskeletal: Denies back pain or neck pain Integumentary Denies abscess or rash Neurologic Neurologic: Denies headache(s), paresthesias or weakness Psychiatric Psychiatric: Denies anxiety or suicidal thoughts EXAM Physical Exam Const Vital Signs: 06/08/22 21:46 06/08/22 21:59 06/08/22 21:59 Temperature 98.2 F Temperature Source Temporal Pulse Rate 85 Respiratory Rate 24 H 30 H Respiratory Pattern Blood Pressure 198/95 H Blood Pressure Mean 129 Pulse Ox 95 92 92 Oxygen Delivery Method Room Air Room Air Room Air Oxygen Flow Rate (L/min) 06/08/22 22:47 06/08/22 23:00 06/08/22 23:18 Temperature Temperature Source Pulse Rate 70 96 Respiratory Rate 23 H 24 H Respiratory Pattern Normal Blood Pressure 182/77 H Blood Pressure Mean 112 Pulse Ox 95 89 Oxygen Delivery Method Nasal Cannula Room Air Oxygen Flow Rate (L/min) 2 06/09/22 00:33 06/09/22 01:11 06/09/22 01:38 Temperature 97.1 F L Temperature Source Temporal Pulse Rate 75 74 73 Respiratory Rate 25 H 26 H 24 H Respiratory Pattern Normal Blood Pressure 192/88 H 192/90 H Blood Pressure Mean 122 124 Pulse Ox 97 95 Oxygen Delivery Method Nasal Cannula Nasal Cannula Oxygen Flow Rate (L/min) 2 2 Positive well nourished and well developed General Appearance ED: well developed and NAD HEENT Reports moist mucous membranes normocephalic and atraumatic Eyes PERRL and EOMs intact bilaterally Neck full ROM, supple and no JVD Resp Resp Narrative: Tachypneic with diffuse expiratory wheezes and prolonged expiratory phase, but no distress and able to converse in full sentences. No other adventitious breath sounds. Cardio regular rate, regular rhythm and no murmurs GI non-tender GI Narrative: Distended, soft, nontender with normal bowel sounds Auscultation: normoactive bowel sounds Palpation: soft Back/Spine no CVA tenderness General Back: other FROM Extremity normal to inspection General Extremety ED: Yes edema; Negative for pulses abnormal or tenderness General Extremity: edema bilateral lower extremity Details: moderate; Negative for pulses abnormal Neuro oriented x3, CN's II-XII intact bilaterally and no sensory deficits noted Sensorium / Orientation: awake and alert Motor Exam: strength 5/5 throughout Skin no rashes or lesions noted and no wounds MDM MDM MDM Narrative Medical decision making narrative: Initially on my evaluation patient is hypoxic at 87% on room air. We will put him on a 2 L nasal cannula which took him up to 93%. He was given a couple nebulizer treatments and we repeated some of his work-up including chest x-ray, which on my interpretation 1 view does not show acute pneumonia radiology was in agreement, showing a COPD pattern. He did have a CT scan of the abdomen/pelvis 2 days ago that showed infiltrates in both bases, so I am not saying he could not still have small infiltrates but the chest x-ray on my interpretation shows NO WORSENING. He was given nebulizer treatments, but was still hypoxic although his dyspnea was better. He has not anticoagulated. I think it is low likelihood that he has a pulmonary embolus but he was recently admitted so I ran a D-dimer. It was very high, so I sent her for CT angiography of the chest, shows no pulmonary embolus. There does appear to be some residual right-sided infiltrate, but again the scan is better than the one that he had before. With this further testing he required more nebulizer treatments in the ED which were helping his breathing, he was given Solu-Medrol I suspect this is all related to COPD. Since he has a persistent oxygen requirement, plan is for admission. Lab Data Attestation: I reviewed the patient's lab results. Labs: Laboratory Results - last 24 hr 06/08/22 06/08/22 06/08/22 21:34 21:34 23:50 WBC 11.1 H RBC 3.48 L Hgb 9.3 L Hct 30.8 L MCV 88.5 MCH 26.7 L MCHC 30.2 L D RDW Std Deviation 46.4 H RDW Coeff of Justin 15.1 H Plt Count 404 MPV 11.4 Immature Gran % (Auto) 1.400 H Neut % (Auto) 64.1 Lymph % (Auto) 23.8 Foster % (Auto) 8.5 Eos % (Auto) 1.8 Baso % (Auto) 0.4 Absolute Neuts (auto) 7.1 Absolute Lymphs (auto) 2.64 Nucleated RBC % 0.2 D-Dimer Quant (PE/DVT) 3.35 H* Sodium 138 Potassium 4.1 Chloride 104 Carbon Dioxide 25.0 Anion Gap 9 BUN 17 Creatinine 1.55 H Estim Creat Clear Calc 36.63 Est GFR (MDRD) Af Amer 55 L Est GFR (MDRD) Non-Af 46 L BUN/Creatinine Ratio 11.0 Glucose 174 H Calcium 9.4 Radiography Diagnostic Testing: Clinical Impression(s) from Imaging Studies Chest X-Ray 06/08/22 22:02 IMPRESSION: Emphysema without pneumonia or atelectasis. Electronically Signed: Colton Macdonald MD at 22:18 EDT , Chest CTA 06/09/22 00:40 IMPRESSION: 1. No pulmonary embolism or dissection. 2. Mild cardiomegaly with bilateral pleural effusions and diffuse interstitial disease that may be due to interstitial edema. 3. Small area consolidation peripherally in the right upper lobe may be due to pneumonia. 4. Emphysema. 5. Mild mediastinal adenopathy. 6. Coronary artery disease. Electronically Signed: Bryant Mendoza MD at 1:37 EDT , Rhythm Strip Rhythm Strip: Sinus Rhythm Rate: 65 Ectopy: None EKG Initial EKG: Attestation: I personally reviewed and interpreted this EKG as follows: Interpretation: Sinus Rhythm, No Acute Injury Pattern and AV Block (1st deg) Discharge Plan Dx/Rx/DC Orders Clinical Impression: Acute exacerbation of chronic obstructive pulmonary disease, Hypoxemia Disposition Disposition: Acute Care Hospital [facility]
[2022-06-08] MEDS: Albuterol 2.5 MG/3 ML VIAL.NEB. INHALATION ×2 (22:44→22:49)
[2022-06-08 22:47] VITALS: PULSE 70; RESP 23
[2022-06-08] MEDS: MethylPREDNISolone 125 MG/2 ML Vial IV (22:54)
[2022-06-08 23:00] VITALS: BP 182/77; PULSE 96; RESP 24; O2SAT 95
[2022-06-08 23:18] VITALS: O2SAT 89
[2022-06-09] VITALS (23 sets, daily range): BP systolic 148–214; BP diastolic 65–101; PULSE 64–103; RESP 12–30; TEMP 36.2–36.7; O2SAT 94–100; BMI 29.0
[2022-06-09 00:21] LABS: D-Dimer Quantitative (DVT/PE) 3.35 FEU/ug/m (0.27-0.49)
--- NOTE | 2022-06-09 00:40 | CT_ITS ---
EXAM: CT ANGIOGRAPHY CHEST WITHOUT AND WITH INTRAVENOUS CONTRAST CLINICAL INDICATION: sob, hypoxic, elevated d-dimer TECHNIQUE: Helically acquired angiography images were obtained of the chest without and with intravenous contrast. This CT exam was performed using one or more of the following dose reduction techniques: automated exposure control, adjustment of the mA and/or kV according to patient size, and/or use of iterative reconstruction technique. This report was created using [employer] report generation technology. MIP reconstructed images were created and reviewed. CONTRAST: 100ML OF ISOVUE 370 IV. RADIATION DOSE: CTDIvol = 14.90 mGy, DLP = 481.52 mGy-cm. COMPARISON: None. FINDINGS: PULMONARY ARTERIES: Unremarkable. Normal in caliber. No evidence of pulmonary embolism. AORTA: Unremarkable. Normal in caliber. No evidence of dissection. GREAT VESSELS OF AORTIC ARCH: Unremarkable. Normal in caliber. No evidence of dissection. LUNGS AND PLEURAL SPACES: Small bilateral pleural effusions. Small area of consolidation peripherally in the right upper lobe. Emphysema. Diffuse thickening of the interlobular septa. No mass. No pneumothorax. HEART: Coronary artery calcifications. Mild cardiomegaly. No pericardial effusion. No signs of right heart strain, ratio of right ventricle to left ventricle measures less than 1. MEDIASTINUM: Unremarkable. No mediastinal or hilar adenopathy. Esophagus is unremarkable. No hiatal hernia. THYROID: Unremarkable. No thyroid lesions. BONES/JOINTS: Unremarkable. No suspicious lytic or blastic abnormality. LYMPH NODES: Mild mediastinal adenopathy. CT/CTA Chest W/WO Contrast IMPRESSION: 1. No pulmonary embolism or dissection. 2. Mild cardiomegaly with bilateral pleural effusions and diffuse interstitial disease that may be due to interstitial edema. 3. Small area consolidation peripherally in the right upper lobe may be due to pneumonia. 4. Emphysema. 5. Mild mediastinal adenopathy. 6. Coronary artery disease. Electronically Signed: Bryant Mendoza MD at 1:37 EDT ,
[2022-06-09] MEDS: Albuterol 2.5 MG/3 ML VIAL.NEB. INHALATION (01:37)
--- NOTE | 2022-06-09 02:08 | HP.PCM.HOS_ITS ---
HPI - General General Date of Admission: 06/09/22 Date of Service: 06/09/22 Chief Complaint: Shortness of breath HPI Narrative DESIREE ROSAS, is a 86 M with a significant history of CAD status post multiple stents; and asthma COPD overlap and on night time bipap who was admitted at [facility] on 06/03/2022 to 06/06/2022 for pneumonia presenting to the hospital with worsening shortness of breath that started a day before t his presentation. Associated with his symptoms is increased coughing above his baseline. His cough is productive for thick yellowish sputum. Further he has wheezing and weakness. [facility] Medical History Abdominal aortic aneurysm (AAA) Acute cystitis with hematuria Ambulates with cane Anemia Aortic aneurysm Arthritis Asthma Atherosclerotic heart disease of [place] coronary artery without angina pectoris Back pain BiPAP (biphasic positive airway pressure) dependence Cancer Cardiology follow-up encounter Carotid bruit Chest pain Chronic constipation Chronic cough Colon polyp COPD (chronic obstructive pulmonary disease) Coronary artery disease Daytime hypersomnia DDD (degenerative disc disease), lumbar Diabetes DM2 (diabetes mellitus, type 2) Dyslipidemia Easy bruising Essential (primary) hypertension Former smoker Gastric reflux High cholesterol History of echocardiogram History of edema History of heart attack History of hiatal hernia History of irregular heartbeat History of pain when walking History of renal disease History of steroid therapy History of stress test HLD (hyperlipidemia) Hoarseness Hypertension Injury of back Kidney stone Leg cramps MARIXA (obstructive sleep apnea) Overweight Patellar bursitis of right knee Peripheral vascular disease of extremity with claudication Pre-syncope PVD (peripheral vascular disease) Rectus sheath hematoma Recurrent urinary tract infection Restless legs Restless legs syndrome Seasonal allergies Shortness of breath on exertion Sleep apnea Somatic dysfunction of pelvic region Stage 3b chronic kidney disease Walker as ambulation aid Wears dentures Wears glasses Wears hearing aid Home Medications pantoprazole 40 mg tablet,delayed release 40 mg PO DAILY reflux 03/28/14 [History Last Taken 03/09/22] ammonium lactate 12 % lotion 1 applic topical QD-BID PRN dry skin 02/06/18 [Hi story Last Taken Unknown] triamcinolone acetonide 55 mcg nasal spray aerosol (Nasacort) 2 spray intranasal DAILY allergies 09/04/18 [History Last Taken 03/09/22] handicap placcard #1 ea 09/28/19 [Rx Last Taken Unknown] ascorbate calcium (vitamin C) 500 mg tablet 500 mg PO DAILY Bone strength 05/03/20 [History Last Taken 03/09/22] coenzyme Q10 100 mg capsule (Co Q-10) 100 mg PO DAILY 05/03/20 [History Last Taken Unknown] cholecalciferol (vitamin D3) 100 mcg (4,000 unit) tablet 100 mcg PO DAILY [History Last Taken Unknown] spacer #1 ea 01/12/21 [Rx Last Taken Unknown] albuterol sulfate 90 mcg/actuation aerosol inhaler (Ventolin HFA) 2 inh inhalation Q4H PRN shortness of breath or wheezing #18 grams 11/27/21 [Rx Last Taken Unknown] atorvastatin 40 mg tablet 40 mg PO QODAY cholesterol #45 tabs 02/20/22 [Rx Last Taken 03/08/22] ipratropium 0.5 mg-albuterol 3 mg (2.5 mg base)/3 mL nebulization soln 3 ml inhalation 4X/DAY PRN PRN shortness of breath or wheezing #90 mL 02/21/22 [Rx [place] st Taken 03/09/22] ipratropium bromide 42 mcg (0.06 %) nasal spray 2 spray intranasal TID-QID PRN allergy symptoms #15 mL 02/21/22 [Rx Last Taken Unknown] budesonide-formoterol HFA 160 mcg-4.5 mcg/actuation aerosol inhaler (Symbicort) 2 puff inhalation BID Respitory 03/09/22 [History Last Taken 03/06/22] montelukast 10 mg tablet 10 mg PO QHS Respiratory 03/09/22 [History Last Taken 03/08/22] acetaminophen 500 mg tablet 1,000 mg PO Q6H PRN PRN Pain Score 1-10 #0 tabs 03/19/22 [Rx Last Taken Unknown] ropinirole 0.5 mg tablet 0.5 mg PO TID 04/22/22 [History Last Taken Unknown] carvedilol 25 mg tablet 25 mg PO BID #180 tabs 05/22/22 [Rx Last Taken Unknown] furosemide 40 mg tablet 40 mg PO DAILY #90 tabs 05/22/22 [Rx Last Taken Unknown] hydralazine 100 mg tablet 100 mg PO TID Disreguard previous RX: dose changed #360 tabs 05/22/22 [Rx Last Taken Unknown] isosorbide mononitrate 30 mg tablet,extended release 24 hr 30 mg PO DAILY 05/22/22 [History Last Taken Unknown] aspirin 81 mg chewable tablet 81 mg PO QHS heart health 05/30/22 [History Last Taken Unknown] loratadine 10 mg tablet 10 mg PO DAILY 05/30/22 [History Last Taken Unknown] metformin 850 mg tablet 850 mg PO BID Blood Glucose 05/30/22 [History Last Taken Unknown] amoxicillin 875 mg-potassium clavulanate 125 mg tablet 1 tab PO BID 3 days #6 tabs 06/06/22 [Rx Last Taken Unknown] ferrous sulfate 325 mg (65 mg iron) tablet 325 mg PO BID #60 tabs 06/06/22 [Rx Last Taken Unknown] nitroglycerin 0.4 mg sublingual tablet (Nitrostat) 0.4 mg sublingual Q5-15M PRN chest pain #25 tabs 06/08/22 [Rx Last Taken Unknown] Allergy/AdvReac Type Severity Reaction Status Date / Time cilostazol [From Pletal] Allergy Unknown Verified 06/02/22 22:07 felodipine Allergy Hives Verified 06/02/22 22:07 levofloxacin Allergy Hives Verified 06/02/22 22:07 Sulfa (Sulfonamide Allergy Unknown Verified 06/02/22 22:07 Antibiotics) Family History Father Diabetes Cancer Prostate cancer Mother Dementia Surgical History H/O aortic aneurysm repair (11/1998) History of coronary artery stent placement (02/17/08) History of endarterectomy (07/2018) History of hernia repair History of left heart catheterization (03/2014) History of transurethral resection of prostate History of vascular surgery (08/2018) Social History household members: spouse Smoking Status: Former smoker how long ago did patient quit smokin years ago alcohol intake: current alcohol intake frequency: holidays/special occasions only details: hx of alcohol abuse substance use type: does not use caffeine: No what type of physical activity do you participate in: other details: Nustep frequency: 5-6 times per week duration: 15-30 minutes/day seatbelt use: always do you feel safe at home: Yes ROS ROS Narrative Pertinent positives and pertinent negatives as noted in HPI. All other systems were reviewed and are negative Vital Signs Vital Signs Vital Signs: 06/08/22 21:46 06/08/22 21:59 06/08/22 21:59 Temperature 98.2 F Temperature Source Temporal Pulse Rate 85 Respiratory Rate 24 H 30 H Respiratory Pattern Blood Pressure 198/95 H Blood Pressure Mean 129 Pulse Ox 95 92 92 Oxygen Delivery Method Room Air Room Air Room Air Oxygen Flow Rate (L/min) 06/08/22 22:47 06/08/22 23:00 06/08/22 23:18 Temperature Temperature Source Pulse Rate 70 96 Respiratory Rate 23 H 24 H Respiratory Pattern Normal Blood Pressure 182/77 H Blood Pressure Mean 112 Pulse Ox 95 89 Oxygen Delivery Method Nasal Cannula Room Air Oxygen Flow Rate (L/min) 2 06/09/22 00:33 06/09/22 01:11 06/09/22 01:38 Temperature 97.1 F L Temperature Source Temporal Pulse Rate 75 74 73 Respiratory Rate 25 H 26 H 24 H Respiratory Pattern Normal Blood Pressure 192/88 H 192/90 H Blood Pressure Mean 122 124 Pulse Ox 97 95 Oxygen Delivery Method Nasal Cannula Nasal Cannula Oxygen Flow Rate (L/min) 2 2 Weight Weight: 88.451 kg Body Mass Index (BMI) 27.9 Physical Exam Narrative Physical exam: General: Well-nourished, well-developed. Head: Normocephalic, atraumatic, no tenderness Eyes: Vision is grossly intact. EOMI ENT, no trauma, moist mucous membranes, no rhinorrhea Neck: Nontender, full range of motion. CVS: Regular rate and rhythm. S1-S2 present. No murmur, gallop or rub. Respiratory : Using accessory muscles of respiration. Tachypnea. Audible wheezes. Mild Rales. Abdomen: Soft, nontender, nondistended, normal bowel sounds, no masses : Deferred Back: Nontender, no CVA tenderness, no midline spinal tenderness, deformities, step-offs Extremities: Edema of right leg ( patient states it is chronic); nontender full range of motion, no trauma Skin: Normal color, no trauma, abrasions Neuro: Alert, oriented, cranial nerves II through XII grossly intact. Psychiatry: Appears anxious. Not depressed. Results Lab / Micro Data Result Diagrams: 06/08/22 21:34 06/08/22 21:34 Labs: Laboratory Results - last 24 hr 06/08/22 21:34: WBC 11.1 H, RBC 3.48 L, Hgb 9.3 L, Hct 30.8 L, MCV 88.5, MCH 26.7 L, MCHC 30.2 L D, RDW Std Deviation 46.4 H, RDW Coeff of Justin 15.1 H, Plt Count 404, MPV 11.4, Immature Gran % (Auto) 1.400 H, Neut % (Auto) 64.1, Lymph % (Auto) 23.8, [place] % (Auto) 8.5, Eos % (Auto) 1.8, Baso % (Auto) 0.4, Absolute Neuts (auto) 7.1, Absolute Lymphs (auto) 2.64, Nucleated RBC % 0.2 06/08/22 21:34: Sodium 138, Potassium 4.1, Chloride 104, Carbon Dioxide 25.0, Anion Gap 9, BUN 17, Creatinine 1.55 H, Estim Creat Clear Calc 36.63, Est GFR (MDRD) Af Amer 55 L, Est GFR (MDRD) Non-Af 46 L, BUN/Creatinine Ratio 11.0, Glucose 174 H, Calcium 9.4 06/08/22 23:50: D-Dimer Quant (PE/DVT) 3.35 H* Micro: Microbiology 06/08/22 22:00 Nasal Secretion SARS-CoV-2 Antigen (Rapid) - Final Rhythm Strip Rhythm Strip: Sinus Rhythm Rate: 65 Ectopy: None Radiology Impression Chest X-Ray 06/08/22 22:02 IMPRESSION: Emphysema without pneumonia or atelectasis. Electronically Signed: Colton Macdonald MD at 22:18 EDT , Chest CTA 06/09/22 00:40 IMPRESSION: 1. No pulmonary embolism or dissection. 2. Mild cardiomegaly with bilateral pleural effusions and diffuse interstitial disease that may be due to interstitial edema. 3. Small area consolidation peripherally in the right upper lobe may be due to pneumonia. 4. Emphysema. 5. Mild mediastinal adenopathy. 6. Coronary artery disease. Electronically Signed: Bryant Mendoza MD at 1:37 EDT , Assessment & Plan Assessment/Plan (1) Acute exacerbation of chronic obstructive pulmonary disease: (2) Hypertensive urgency: (3) Obstructive sleep apnea: (4) Diabetes mellitus: PLAN: Plan Acute COPD exacerbation D-dimer was elevated at 3.35 Chest CTA was visualized and independently interpreted and I agree with interpretation of bilateral pleural effusion and diffuse interstitial disease as well as small area consolidation peripherally in the right upper lobe. Scheduled DuoNeb Albuterol as needed Solu-Medrol IV ordered Oxygen started at the emergency department and continued. Home nightly BiPAP resumed with oxygen bled in. Monitor BMP and CBC ABG ordered Pneumonia Gram-positive or gram-negative. Patient has 1 more day of previously prescribed Augmentin. Will extend course of Augmentin. Hypertensive Urgency Higher systolic blood pressure of 214. Carvedilol, hydralazine and Lasix continued. Imdur continued. As needed hydralazine ordered. Trend blood pressure and adjust blood pressure medications. CAD status post stents Stable. Denies chest pain at this time. Aspirin, Imdur, carvedilol, and atorvastatin continued. Monitor on telemetry. Last echocardiogram on 05/15/2022 showed ejection fraction of 60% with indeterminate diastolic function. Right ventricular systolic pressure was 34 mmHg. Colonic mass New diagnosis on patient's recent visit on 06/03/2022 to 06/06/2022. Patient to follow-up general surgery. Acute on chronic anemia Hemoglobin on presentation was 9.3. Improved. Iron supplementation continued. Trend CBC. Diabetes mellitus A1c on 07/06/2021 6.8 and A1c on 07/20/20 6.7. Patient with mild elevated blood glucose on presentation. With steroids a nticipate blood glucose will increase. A1c ordered. Accu-Chek correction scale insulin ordered. DVT prophylaxis: Subcutaneous Lovenox ordered. Charges/Coding Visit Charges Inpatient E&M: 92089 Init Hosp L3
[2022-06-09 03:46] LABS: Allen Test Positive; Base Excess -2 mmol/L (-2 to +2); Bicarbonate 22.7 mmol/L (22-26); Blood Gas Specimen Type ART; FI02 30; O2 Delivery Device BiPAP; PEEP 8; PO2 96 mmHG (75-100); RR 14; SITE R Brach; SO2 98 % (95-99); Total Carbon Dioxide 24 mmol/L; pCO2 35.2 mmHg (35-45); pH 7.42 (7.35-7.45)
[2022-06-09] MEDS: hydrALAZINE 20 MG/ML Vial 10 MG IV (04:21)
[2022-06-09] MEDS: 0.9% Saline Lock 10 ML Syringe IV ×6 (04:22→21:18)
[2022-06-09] MEDS: hydrALAZINE 50 MG Tablet 100 MG PO ×3 (06:47→21:19)
[2022-06-09] MEDS: Insulin Lispro 100 UNIT/ML INSULN.PEN SC ×4 (06:53→21:21)
[2022-06-09 07:03] LABS: Absolute Lymphocyte Count 0.76 X10^3/uL (0.83-4.51); Absolute Neutrophil Count 6.9 X10^3/uL (2.0-7.7); Basophil# 0.02 X10^3/uL; Basophil% 0.3 % (0-1); Hematocrit 26.5 % (40-54); Hemoglobin 8.9 g/dL (13.0-16.5); Lymphocyte # 0.76 X10^3/ul (0.83-4.51); Lymphocyte % 9.6 % (19-41); Mean Corp Hgb Conc 33.6 g/dL (32-36); Mean Corpuscular Hgb 31.3 pg (27.0-32.0); Mean Corpuscular Volume 93.3 fL (80-94); Mean Platelet Vol. 11.1 fl (6.2-12.0); Monocyte# 0.08 X10^3/uL; NRBC Flagged by Analyzer 0 % (0-5); Neutrophil # 6.94 X10^3/uL (2.7-7.7); Neutrophil % 87.6 % (47-70); Platelet Count 368 K/mm3 (150-450); RBC Distribution Width CV 15.6 % (11.6-14.6); RBC Distribution Width SD 47.3 fl (35.1-43.9); Red Blood Count 2.84 M/mm3 (4.6-6.2); White Blood Count 7.9 K/mm3 (4.4-11.0)
[2022-06-09] MEDS: Ipratropium/Albuterol Sulfate 3 ML AMPUL.NEB INHALATION ×4 (07:08→19:11)
[2022-06-09 07:10] LABS: Bedside Glucose 182 mg/dL (74-106)
[2022-06-09 07:19] LABS: Hemoglobin A1c 7.1 % (3.8-5.6)
[2022-06-09 07:31] LABS: Anion Gap 10 (5-15); BUN 17 mg/dL (7-18); BUN/Creat Ratio 12.1 RATIO (10-20); Calcium,Total 8.9 mg/dL (8.5-10.1); Chloride 103 mmol/L (98-107); Creatinine, Serum 1.41 mg/dL (0.70-1.30); EST Glomerular Filtration Rate 51 mL/min (>60); Est Glom Filt Rate - Afr Amer 61 mL/min (>60); Estimated Creatinine Clearance 40.27 ml/min; Glucose 209 mg/dL (74-106); Potassium 3.9 mmol/L (3.5-5.1); Sodium Level 137 mmol/L (136-145)
--- NOTE | 2022-06-09 08:40 | PN.HOSP_ITS ---
Subjective Subjective Wheezing. Objective Data Objective Data Vital Signs: Vital Signs Temp Pulse Resp BP Pulse Ox O2 Del Method O2 Flow Rate 36.6 C 73 24 H 214/101 H 97 Bi-pap 2 06/09/22 04:00 06/09/22 07:09 06/09/22 07:09 06/09/22 04:21 06/09/22 07:09 06/09/22 07:59 06/09/22 01:11 FiO2 30 06/09/22 07:59 Oxygen Flow Rate (L/min) 2 Oxygen Delivery Method Bi-pap Weight: 91.8 kg Body Mass Index (BMI) 29.0 Intake & Output: Intake and Output for Last 24 Hours 06/07/22 06/08/22 06/09/22 23:59 23:59 23:59 Intake Total 500 / 500 Balance 500 / 500 Lab / Micro Data Result Diagrams: 06/09/22 06:40 06/09/22 06:40 Labs: Laboratory Results - last 24 hr 06/08/22 21:34: WBC 11.1 H, RBC 3.48 L, Hgb 9.3 L, Hct 30.8 L, MCV 88.5, MCH 26.7 L, MCHC 30.2 L D, RDW Std Deviation 46.4 H, RDW Coeff of [place] 15.1 H, Plt Count 404, MPV 11.4, Immature Gran % (Auto) 1.400 H, Neut % (Auto) 64.1, Lymph % (Auto) 23.8, [place] % (Auto) 8.5, Eos % (Auto) 1.8, Baso % (Auto) 0.4, Absolute Neuts (auto) 7.1, Absolute Lymphs (auto) 2.64, Nucleated RBC % 0.2 06/08/22 21:34: Sodium 138, Potassium 4.1, Chloride 104, Carbon Dioxide 25.0, Anion Gap 9, BUN 17, Creatinine 1.55 H, Estim Creat Clear Calc 36.63, Est GFR (MDRD) Af Amer 55 L, Est GFR (MDRD) Non-Af 46 L, BUN/Creatinine Ratio 11.0, Gl ucose 174 H, Calcium 9.4 06/08/22 23:50: D-Dimer Quant (PE/DVT) 3.35 H* 06/09/22 06:40: WBC 7.9, RBC 2.84 L, Hgb 8.9 L, Hct 26.5 L, MCV 93.3 D, MCH 31.3, MCHC 33.6 D, RDW Std Deviation 47.3 H, RDW Coeff of [place] 15.6 H, Plt Count 368, MPV 11.1, Immature Gran % (Auto) 1.500 H, Neut % (Auto) 87.6 H, Lymph % (Auto) 9.6 L, [place] % (Auto) 1.0, Eos % (Auto) 0.0, Baso % (Auto) 0.3, Absolute Neuts (auto) 6.9, Absolute Lymphs (auto) 0.76 L, Nucleated RBC % 0 06/09/22 06:40: Sodium 137, Potassium 3.9, Chloride 103, Carbon Dioxide 24.0, Anion Gap 10, BUN 17, Creatinine 1.41 H, Estim Creat Clear Calc 40.27, Est GFR (MDRD) Af Amer 61, Est GFR (MDRD) Non-Af 51 L, BUN/Creatinine Ratio 12.1, Gl ucose 209 H, Calcium 8.9 06/09/22 06:40: Hemoglobin A1c 7.1 H 06/09/22 06:41: POC Glucose 182 H Micro: Microbiology 06/08/22 22:00 Nasal Secretion SARS-CoV-2 Antigen (Rapid) - Final ABG Data ABG results: ABG 06/09/22 03:42 Specimen Type ART Sample Site R Brach pH 7.42 Bicarbonate Actual 22.7 Total CO2 24 Base Excess -2 O2 Saturation 98 O2 % 30 ABG pCO2 35.2 ABG pO2 96 Osvaldo Test Positive Respiration Rate 14 O2 Delivery Device BiPAP POC PEEP 8 Radiography Diagnostic Testing: Radiology Impression Chest X-Ray 06/08/22 22:02 IMPRESSION: Emphysema without pneumonia or atelectasis. Electronically Signed: Colton Macdonald MD at 22:18 EDT , Chest CTA 06/09/22 00:40 IMPRESSION: 1. No pulmonary embolism or dissection. 2. Mild cardiomegaly with bilateral pleural effusions and diffuse interstitial disease that may be due to interstitial edema. 3. Small area consolidation peripherally in the right upper lobe may be due to pneumonia. 4. Emphysema. 5. Mild mediastinal adenopathy. 6. Coronary artery disease. Electronically Signed: Bryant Mendoza MD at 1:37 EDT , Rhythm Strip Rhythm Strip: Sinus Rhythm Rate: 65 Ectopy: None Physical Exam Const alert and no apparent distress Resp normal respiratory effort Auscultation: wheezes expiratory wheezes and throughout Cardio regular rate, regular rhythm, S1 normal heart sound and S2 normal heart sound Extremity General Extremity: edema bilateral lower extremity Details: moderate Assessment & Plan Assessment/Plan (1) Acute respiratory failure with hypoxia: PLAN: A multifactorial: Secondary to acute exacerbation of COPD, CHF exacerbation, pleural effusions and pneumonia Wean oxygen as tolerated Patient's requesting pulmonary consult. Chest CTA was visualized and bilateral pleural effusion and diffuse interstitial disease as well as small area consolidation peripherally in the right upper lobe. (2) Acute exacerbation of chronic obstructive pulmonary disease: PLAN: Bronchodilators and methylprednisolone (3) (HFpEF) heart failure with preserved ejection fraction: PLAN: EF 60% from 2D echocardiogram on May 15, 2022. IV furosemide Continue with carvedilol and isosorbide and hydralazine (4) Pleural effusion: PLAN: Likely due to CHF Diuresis Effusions are rather small and I do not feel that thoracentesis is necessary at this time. (5) Hypertensive urgency: PLAN: Improved Continue isosorbide, hydralazine and carvedilol (6) Diabetes mellitus: PLAN: Metformin held given the CTA Sliding scale insulin (7) Pneumonia: QUALIFIERS: Pneumonia type: due to Pneumococcus Laterality: unspecified laterality Lung location: unspecified part of lung Qualified Code(s): J13 - Pneumonia due to Streptococcus pneumoniae PLAN: Presumed pneumococcal Continue with amoxicillin/clavulanic acid (8) Coronary artery disease: PLAN: CAD status post stents Stable. Denies chest pain at this time. Aspirin, Imdur, carvedilol, and atorvastatin continued. Monitor on telemetry. Last echocardiogram on 05/15/2022 showed ejection fraction of 60% with indeterminate diastolic function. Right ventricular systolic pressure was 34 mmHg. 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 Jo, states that that could likely be resected via colonoscopy. Patient will need to be more medically optimized before doing so. Could possibly done while he is in the hospital or could be done as outpatient. Previously seen Dr. Garcia and was concerned for removal given the patient's multiple medical comorbidities. (10) Anemia: PLAN: Acute on chronic anemia Hemoglobin on presentation was 9.3. Improved. Iron supplementation continued. Trend CBC. Transfuse for hemoglobin less than or equal to 8. PLAN: Plan DVT prophylaxis: Subcutaneous Lovenox ordered. Charges/Coding Visit Charges Inpatient E&M: 47894 Subs Hosp L3
[2022-06-09] MEDS: Ascorbic Acid 500 MG Tablet PO (09:17)
[2022-06-09] MEDS: Furosemide 40 MG/4 ML Vial IV ×2 (09:17→17:02)
[2022-06-09] MEDS: guaiFENesin 1,200 MG Tablet 1200 MG PO ×2 (09:17→21:22)
[2022-06-09] MEDS: Amox/Clavulanate 875 MG Tablet PO ×2 (09:17→17:00)
[2022-06-09] MEDS: Isosorbide Mononitrate 30 MG Tablet PO (09:17)
[2022-06-09] MEDS: Cholecalciferol (VIT D3) 25 MCG TABLET (1,000 UNITS) 100 MCG PO (09:17)
[2022-06-09] MEDS: Enoxaparin 40 MG/0.4 ML Syringe SC (09:17)
[2022-06-09] MEDS: Carvedilol 25 MG Tablet PO ×2 (09:18→17:00)
[2022-06-09] MEDS: Pantoprazole Sodium 40 MG Tablet PO (09:18)
[2022-06-09] MEDS: Ferrous Sulfate 325 MG Tablet PO ×2 (09:18→17:00)
[2022-06-09] MEDS: Fluticasone 0.05% 1 SPRAY NASAL.SRY 2 SPRAY NASAL (09:19)
[2022-06-09] MEDS: Loratadine 10 MG Tablet PO (09:19)
--- NOTE | 2022-06-09 11:12 | CPS ---
Adjusted Bipap setting to match pt's home settings of 21/08. Decreased fio2 to 25% as well.
[2022-06-09 12:05] LABS: Bedside Glucose 218 mg/dL (74-106)
[2022-06-09] MEDS: Pramipexole Di-HCl 0.25 MG Tablet PO ×2 (14:57→21:22)
[2022-06-09 17:25] LABS: Bedside Glucose 220 mg/dL (74-106)
--- NOTE | 2022-06-09 18:05 | CASEMGMT ---
RN CM chart review: Patient was admitted 06/03/22-06/06/22 for Chest pain and pneumonia. Patient was also admitted 05/15-05/16/22 Decompensated HF. See RN CM assessment from 05/15. Palliative referral was made and family declined. Patient did not qualify for home oxygen. Patient discharged home. Patient returned to [facility] ED on 06/08/22 for increased SOB. Patient had follow-up appts scheduled but returned to [facility] prior to appts. COLLEEN CM in to discuss possible home oxygen at discharge. Patient declined list of DME and states his preference is [facility]. Patient declined HHC at this point, will continue to monitor. Green sheet placed on chart. CM to continue to follow this patient and plan for a safe discharge.
[2022-06-09] MEDS: Aspirin 81 MG TAB.CHEW PO (21:20)
[2022-06-09] MEDS: Atorvastatin Calcium 40 MG Tablet PO (21:22)
[2022-06-09] MEDS: Montelukast 10 MG Tablet PO (21:23)
[2022-06-09 21:45] LABS: Bedside Glucose 246 mg/dL (74-106)
[2022-06-10] VITALS (25 sets, daily range): BP systolic 161–182; BP diastolic 66–88; PULSE 56–80; RESP 12–29; TEMP 36.2–36.6; O2SAT 94–98
[2022-06-10] MEDS: hydrALAZINE 20 MG/ML Vial 10 MG IV ×3 (03:47→18:01)
[2022-06-10] MEDS: 0.9% Saline Lock 10 ML Syringe IV ×6 (03:48→21:10)
[2022-06-10] MEDS: Ipratropium/Albuterol Sulfate 3 ML AMPUL.NEB INHALATION ×5 (05:48→23:00)
[2022-06-10] MEDS: Pramipexole Di-HCl 0.25 MG Tablet PO ×3 (06:15→21:10)
[2022-06-10] MEDS: hydrALAZINE 50 MG Tablet 100 MG PO ×3 (06:16→21:10)
[2022-06-10 06:45] LABS: Bedside Glucose 283 mg/dL (74-106)
[2022-06-10] MEDS: Insulin Lispro 100 UNIT/ML INSULN.PEN SC ×4 (06:49→21:10)
--- NOTE | 2022-06-10 07:00 | NURSING ---
all documentation completed by Gretchen MACIAS reviewed by this RN
[2022-06-10 07:32] LABS: Anion Gap 11 (5-15); BUN 29 mg/dL (7-18); Calcium,Total 9.4 mg/dL (8.5-10.1); Chloride 102 mmol/L (98-107); Creatinine, Serum 1.61 mg/dL (0.70-1.30); EST Glomerular Filtration Rate 44 mL/min (>60); Est Glom Filt Rate - Afr Amer 53 mL/min (>60); Estimated Creatinine Clearance 35.27 ml/min; Glucose 298 mg/dL (74-106); Potassium 3.7 mmol/L (3.5-5.1); Sodium Level 136 mmol/L (136-145)
[2022-06-10 07:40] LABS: Absolute Neutrophil Count 14.2 X10^3/uL (2.0-7.7); Basophil# 0.01 X10^3/uL; Basophil% 0.1 % (0-1); Hematocrit 28.8 % (40-54); Hemoglobin 8.8 g/dL (13.0-16.5); Lymphocyte % 6.9 % (19-41); Mean Corp Hgb Conc 30.6 g/dL (32-36); Mean Corpuscular Volume 88.3 fL (80-94); Mean Platelet Vol. 11.2 fl (6.2-12.0); Monocyte# 0.52 X10^3/uL; Monocyte% 3.2 % (0-10); NRBC Flagged by Analyzer 0 % (0-5); Neutrophil % 88.7 % (47-70); Platelet Count 392 K/mm3 (150-450); RBC Distribution Width CV 15.9 % (11.6-14.6); RBC Distribution Width SD 47.9 fl (35.1-43.9); Red Blood Count 3.26 M/mm3 (4.6-6.2)
--- NOTE | 2022-06-10 08:17 | PN.HOSP_ITS ---
Subjective Subjective Coughing but nonproductive. Does not feel any significantly better. Objective Data Objective Data Vital Signs: Vital Signs Temp Pulse Resp BP Pulse Ox O2 Del Method O2 Flow Rate 36.6 C 71 16 167/88 H 98 Nasal Cannula 2 06/10/22 03:25 06/10/22 07:30 06/10/22 07:05 06/10/22 05:23 06/10/22 07:05 06/10/22 07:45 06/10/22 07:45 FiO2 30 06/10/22 07:05 Oxygen Flow Rate (L/min) 2 Oxygen Delivery Method Nasal Cannula Weight: 91.8 kg Body Mass Index (BMI) 29.0 Intake & Output: Intake and Output for Last 24 Hours 06/08/22 06/09/22 06/10/22 23:59 23:59 23:59 Intake Total 1220 / 1220 Output Total 1175 / 1175 250 / 250 Balance 45 / 45 -250 / -250 Lab / Micro Data Result Diagrams: 06/10/22 06:06 06/10/22 06:06 Labs: Laboratory Results - last 24 hr 06/09/22 11:40: POC Glucose 218 H 06/09/22 16:59: POC Glucose 220 H 06/09/22 21:12: POC Glucose 246 H 06/10/22 06:06: Sodium 136, Potassium 3.7, Chloride 102, Carbon Dioxide 23.0, Anion Gap 11, BUN 29 H, Creatinine 1.61 H, Estim Creat Clear Calc 35.27, Est GFR (MDRD) Af Amer 53 L, Est GFR (MDRD) Non-Af 44 L, BUN/Creatinine Ratio 18.0, Glucose 298 H, Calcium 9.4 06/10/22 06:24: POC Glucose 283 H Micro: Microbiology 06/08/22 22:00 Nasal Secretion SARS-CoV-2 Antigen (Rapid) - Final Rhythm Strip Rhythm Strip: Sinus Rhythm Rate: 65 Ectopy: None Physical Exam Const alert and no apparent distress Eyes PERRL Resp Resp Narrative: Bilateral wheezes GI normal to inspection, nondistended, normoactive bowel sounds and soft to palpation Neuro oriented x3 and CN's II-XII intact bilaterally Psych affect normal Assessment & Plan Assessment/Plan (1) Acute respiratory failure with hypoxia: PLAN: A multifactorial: Secondary to acute exacerbation of COPD, CHF exacerbation, pleural effusions and pneumonia Wean oxygen as tolerated Pulmonary Chest CTA was visualized and bilateral pleural effusion and diffuse interstitial disease as well as small area consolidation peripherally in the right upper lobe. (2) Acute exacerbation of chronic obstructive pulmonary disease: PLAN: Bronchodilators and methylprednisolone (3) (HFpEF) heart failure with preserved ejection fraction: PLAN: EF 60% from 2D echocardiogram on May 15, 2022. IV furosemide, decrease from 40-20 IV twice daily given his worsening kidney function. Continue with carvedilol and isosorbide and hydralazine (4) Pleural effusion: PLAN: Likely due to CHF Diuresis Effusions are rather small and I do not feel that thoracentesis is necessary at this time. (5) Hypertensive urgency: PLAN: Improved but still overall elevated Continue isosorbide 30, hydralazine 100 3 times daily and carvedilol 25 twice daily Allergy to dihydropyridine calcium channel blockers NoACE inhibitor's nor ARB's given his worsened kidney function at this time. Add clonidine (6) Diabetes mellitus: PLAN: Metformin held given the CTA Sliding scale insulin (7) Pneumonia: QUALIFIERS: Laterality: unspecified laterality Lung location: unspecified part of lung Pneumonia type: due to Pneumococcus Qualified Code(s): J13 - Pneumonia due to Streptococcus pneumoniae PLAN: Presumed pneumococcal. Subsequent visit Continue with amoxicillin/clavulanic acid (8) Coronary artery disease: QUALIFIERS: Associated angina: without angina Coronary Disease- Associated Artery/Lesion type: [place] artery [place] vs. transplanted heart: [place] heart Qualified Code(s): I25.10 - Atherosclerotic heart disease of [place] coronary artery without angina pectoris PLAN: CAD status post stents Stable. Denies chest pain at this time. Aspirin, Imdur, carvedilol, and atorvastatin continued. Monitor on telemetry. Last echocardiogram on 05/15/2022 showed ejection fraction of 60% with indeterminate diastolic function. Right ventricular systolic pressure was 34 mmHg. 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 Jo, states that that could likely be resected via colonoscopy. Patient will need to be more medically optimized before doing so. Could possibly done while he is in the hospital or could be done as outpatient. Previously seen Dr. Garcia and was concerned for removal given the patient's multiple medical comorbidities. (10) Anemia: QUALIFIERS: Anemia type: other cause Other causes of anemia: other cause, not classified Qualified Code(s): D64.89 - Other specified anemias PLAN: Acute on chronic anemia Hemoglobin on presentation was 9.3. Improved. Iron supplementation continued. Trend CBC. Transfuse for hemoglobin less than or equal to 8. PLAN: Plan DVT prophylaxis: Subcutaneous Lovenox ordered. Charges/Coding Visit Charges Inpatient E&M: 46307 Subs Hosp L2
--- NOTE | 2022-06-10 08:19 | EX.PCM.CONCC ---
Assessment & Plan Assessment/Plan (1) (HFpEF) heart failure with preserved ejection fraction: (2) Pleural effusion: (3) Anemia: QUALIFIERS: Anemia type: other cause Other causes of anemia: other cause, not classified Qualified Code(s): D64.89 - Other specified anemias (4) Hypertensive urgency: PLAN: Plan RECOMMENDATIONS: 1. Aggressive blood pressure control 2. Okay to complete antibiotics as previously scheduled 3. Okay to continue Solu-Medrol, bronchodilators and mucolytic 4. Wean supplemental oxygen as tolerated 5. Walking oximetry prior to discharge IMPRESSIONS: 1. Acute hypoxic respiratory insufficiency secondary to hypertensive urgency Unclear etiology at this time. Patient may have had elevated blood pressures secondary to respiratory distress versus respiratory distress secondary to flash pulmonary edema associated with hypertensive emergency. Patient is on supplemental oxygen, which is not normal. Patient does have underlying asthma/COPD predisposing patient to acute respiratory issues. Patient has been placed appropriately on bronchodilators and steroid therapy. Patient is currently on antibiotics without significant leukocytosis or fever. Likely not necessary to obtain another sputum culture at this time. Patient does have bilateral pleural effusions that may complicate overall condition, but do not appear to be significant enough to require a thoracentesis. Do agree with continuing with diuretics as patient tolerates. Await response to conservative measures prior to providing additional recommendations. 2. Bilateral pleural effusion secondary to diastolic CHF Patient with recent echocardiogram showing an EF of 60%. Patient does have multiple stigmata suggestive of diastolic dysfunction and has been placed on IV Lasix. Patient continues to present with high blood pressures and decompensation. Pleural thickening may be secondary to CHF. Aggressive treatment of blood pressure is necessary. Heart rates appear to be controlled. Patient is on telemetry, so monitor for arrhythmias. 3. Obstructive sleep apnea Patient should be on BiPAP 15/11 centimeters of water. Patient has tolerated this well at home. Patient's respiratory status does not appear to be severe enough that he requires our machine. Likely okay to bring in home machine to use while in the hospital. 4. Colonic mass Work-up is still underway. 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 Some concern for possible secondary diagnosis such as carcinoid. This may explain why patient continues to have elevated blood pressures. There are discussions about possible resection. Patient is not showing any signs of GI obstruction at this time. 5. CAD/chronic anemia/diabetes mellitus/hyperlipidemia/advanced age Complicates care, management, recovery and prognosis. We will need to watch blood sugars closely given concomitant steroids. Patient okay to continue on statin from my perspective. Patient is very clear that he would not want to receive CPR or intubation. HPI Consult Data Date of Consult: 06/10/22 HPI Narrative Reason for Consultation: Dyspnea HPI Narrative: DESIREE ROSAS is an 86 M, with past medical history listed below and well-known to me from outpatient office, who presents to [facility] on 06/08/2022 secondary to progressive shortness of breath and coughing. This is patient's seventh presentation since March 07 following a TURP procedure with similar type of complaints. Patient was discharged 3 days prior and diagnosed with pneumonia. Patient had been on IV antibiotics during that hospitalization was discharged on Augmentin. Patient reportedly had been using his nebulizer 4 times a day. Patient does not use supplemental oxygen at baseline. Patient has reported significant lower extremity edema, but not significantly different than baseline. Patient reports he has had some coughing producing clear to yellow sputum. Patient is not aware of any fevers. In the ER, patient was afebrile, but hypertensive at 198/95. Patient also was tachypneic at 30 breaths/min, eventually requiring 2 L nasal cannula to maintain saturations. Laboratory data showed a white blood cell count of 11.1, hemoglobin of 9.3 and platelets of 404. D-dimer was elevated and creatinine was 1.55. Bicarbonate was on the upper limit of normal at 25. Glucose was elevated at 174. Chest x-ray showed only hyperinflation, but a CTA of the chest showed mild cardiomegaly with bilateral pleural effusions and interstitial thickening. Patient did have significant emphysematous changes along with mild mediastinal lymphadenopathy. No PEs were noted. Given continued breathlessness, patient was admitted to the hospital for further evaluation. Patient had requested a pulmonary consult of the hospitalist yesterday secondary recurrent admissions. Patient is well-known to me from the outpatient office. Patient has a history of COPD/asthma, but has not required oxygen in the past. Patient is typically covered with Symbicort and DuoNeb therapy. Patient also has obstructive sleep apnea that is typically treated with BiPAP 15/11 centimeters of water with 100% compliance. Patient's previous pulmonary function test shows a FEV1 of 56% with a symmetric reduction diffusing capacity in 2020. Patient is reasonably frustrated that he continues to come back to the hospital secondary to shortness of breath. Patient has not been seen in the office in the interim. Patient was incidentally noted to have a colonic mass that is reportedly not malignant. Patient's prostate biopsy was also showing no malignancy. Review of previous hospitalizations show cultures were relatively negative except for a positive E faecalis UTI in March 2022. Sputum cultures have been negative as recently as 06/03/2022. Patient reports that he has multiple visits this week with cardiology, surgery and myself and was attempting to hold out for those visits. Patient states that he continues to have shortness of breath with minimal exertion's this morning. Patient has not had any significant hemoptysis or epistaxis. Patient believes his lower extremity edema is at its baseline. Patient is unclear on why his blood pressure continues to be elevated. Patient believes this may be secondary to anxiety associated with shortness of breath. Review of systems otherwise negative from a constitutional, HEENT, respiratory, cardiovascular, GI, genitourinary, musculoskeletal, skin, neurologic, psychiatric and hematologic system unless stated above. [facility] Medical History Abdominal aortic aneurysm (AAA) Acute cystitis with hematuria Ambulates with cane Anemia Aortic aneurysm Arthritis Asthma Atherosclerotic heart disease of [place] coronary artery without angina pectoris Back pain BiPAP (biphasic positive airway pressure) dependence Cancer Cardiology follow-up encounter Carotid bruit Chest pain Chronic constipation Chronic cough Colon polyp Colonic mass COPD (chronic obstructive pulmonary disease) Coronary artery disease Daytime hypersomnia DDD (degenerative disc disease), lumbar Diabetes DM2 (diabetes mellitus, type 2) Dyslipidemia Easy bruising Essential (primary) hypertension Former smoker Gastric reflux High cholesterol History of echocardiogram History of edema History of heart attack History of hiatal hernia History of irregular heartbeat History of pain when walking History of renal disease History of steroid therapy History of stress test HLD (hyperlipidemia) Hoarseness Hypertension Injury of back Kidney stone Leg cramps MARIXA (obstructive sleep apnea) Overweight Patellar bursitis of right knee Peripheral vascular disease of extremity with claudication Pre-syncope PVD (peripheral vascular disease) Rectus sheath hematoma Recurrent urinary tract infection Restless legs Restless legs syndrome Seasonal allergies Shortness of breath on exertion Sleep apnea Somatic dysfunction of pelvic region Stage 3b chronic kidney disease Walker as ambulation aid Wears dentures Wears glasses Wears hearing aid Home Medications pantoprazole 40 mg tablet,delayed release 40 mg PO DAILY reflux 03/28/14 [History Last Taken 03/09/22] ammonium lactate 12 % lotion 1 applic topical QD-BID PRN dry skin 02/06/18 [History Last Taken Unknown] triamcinolone acetonide 55 mcg nasal spray aerosol (Nasacort) 2 spray intranasal DAILY allergies 09/04/18 [History Last Taken 03/09/22] handicap placcard #1 ea 09/28/19 [Rx Last Taken Unknown] ascorbate calcium (vitamin C) 500 mg tablet 500 mg PO DAILY Bone strength 05/03/20 [History Last Taken 03/09/22] coenzyme Q10 100 mg capsule (Co Q-10) 100 mg PO DAILY 05/03/20 [History Last Taken Unknown] cholecalciferol (vitamin D3) 100 mcg (4,000 unit) tablet 100 mcg PO DAILY 11/03/20 [History Last Taken Unknown] spacer #1 ea 01/12/21 [Rx Last Taken Unknown] albuterol sulfate 90 mcg/actuation aerosol inhaler (Ventolin HFA) 2 inh inhalation Q4H PRN shortness of breath or wheezing #18 grams 11/27/21 [Rx Last Taken Unknown] atorvastatin 40 mg tablet 40 mg PO QODAY cholesterol #45 tabs 02/20/22 [Rx Last Taken 03/08/22] ipratropium 0.5 mg-albuterol 3 mg (2.5 mg base)/3 mL nebulization soln 3 ml inhalation 4X/DAY PRN PRN shortness of breath or wheezing #90 mL 02/21/22 [Rx Last Taken 03/09/22] ipratropium bromide 42 mcg (0.06 %) nasal spray 2 spray intranasal TID-QID PRN allergy symptoms #15 mL 02/21/22 [Rx Last Taken Unknown] budesonide-formoterol HFA 160 mcg-4.5 mcg/actuation aerosol inhaler (Symbicort) 2 puff inhalation BID Respitory 03/09/22 [History Last Taken 03/06/22] montelukast 10 mg tablet 10 mg PO QHS Respiratory 03/09/22 [History Last Taken 03/08/22] acetaminophen 500 mg tablet 1,000 mg PO Q6H PRN PRN Pain Score 1-10 #0 tabs 03/19/22 [Rx Last Taken Unknown] ropinirole 0.5 mg tablet 0.5 mg PO TID 04/22/22 [History Last Taken Unknown] carvedilol 25 mg tablet 25 mg PO BID #180 tabs 05/22/22 [Rx Last Taken Unknown] furosemide 40 mg tablet 40 mg PO DAILY #90 tabs 05/22/22 [Rx Last Taken Unknown] hydralazine 100 mg tablet 100 mg PO TID Disreguard previous RX: dose changed #360 tabs 05/22/22 [Rx Last Taken Unknown] isosorbide mononitrate 30 mg tablet,extended release 24 hr 30 mg PO DAILY 05/22/22 [History Last Taken Unknown] aspirin 81 mg chewable tablet 81 mg PO QHS heart health 05/30/22 [History Last Taken Unknown] loratadine 10 mg tablet 10 mg PO DAILY 05/30/22 [History Last Taken Unknown] metformin 850 mg tablet 850 mg PO BID Blood Glucose 05/30/22 [History Last Taken Unknown] amoxicillin 875 mg-potassium clavulanate 125 mg tablet 1 tab PO BID 3 days #6 tabs 06/06/22 [Rx Last Taken Unknown] ferrous sulfate 325 mg (65 mg iron) tablet 325 mg PO BID #60 tabs 06/06/22 [Rx Last Taken Unknown] nitroglycerin 0.4 mg sublingual tablet (Nitrostat) 0.4 mg sublingual Q5-15M PRN chest pain #25 tabs 06/08/22 [Rx Last Taken Unknown] Allergy/AdvReac Type Severity Reaction Status Date / Time cilostazol [From Pletal] Allergy Unknown Verified 06/02/22 22:07 felodipine Allergy Hives Verified 06/02/22 22:07 levofloxacin Allergy Hives Verified 06/02/22 22:07 Sulfa (Sulfonamide Allergy Unknown Verified 06/02/22 22:07 Antibiotics) Family History Father Diabetes Cancer Prostate cancer Mother Dementia Surgical History H/O aortic aneurysm repair (11/1998) History of coronary artery stent placement (02/17/08) History of endarterectomy (07/2018) History of hernia repair History of left heart catheterization (03/2014) History of transurethral resection of prostate History of vascular surgery (08/2018) Social History household members: spouse Smoking Status: Former smoker how long ago did patient quit smokin years ago alcohol intake: current alcohol intake frequency: holidays/special occasions only details: hx of alcohol abuse substance use type: does not use caffeine: No what type of physical activity do you participate in: other details: Nustep frequency: 5-6 times per week duration: 15-30 minutes/day seatbelt use: always do you feel safe at home: Yes ROS ROS Narrative See HPI Physical Exam Const alert and oriented x3 Constitutional Narrative: Mild conversational dyspnea HEENT normocephalic HEENT Narrative: Nasal cannula in place. Mallampati 3. Mouth: oral and palatal mucosa normal Eyes PERRL, EOMs intact bilaterally and conjunctivae normal Neck no lymphadenopathy Resp Auscultation: rales right and diminished lung sounds; Negative for rhonchi or wheezes Cardio regular rate, regular rhythm, S1 normal heart sound, S2 normal heart sound, no murmurs, no rub and no gallops Peripheral Pulses: pulses 2+ throughout GI normal to inspection, nondistended, normoactive bowel sounds, non-tender and non-distended Extremity normal to inspection General Extremity: edema bilateral (1+) lower extremity Skin no rashes or lesions noted Lesions: no lesions Rashes: no rashes Trauma: no lacerations or abrasions Neuro CN's II-XII intact bilaterally, no focal motor deficits, no sensory deficits noted and deep tendon reflexes 2+ bilaterally Psych mental status grossly normal, cooperative and affect normal Medical Records Data Attestation: I reviewed the patient's medical records Medical records narrative: Multiple previous hospitalizations were reviewed. Previous presentations do appear to be associated with hypertension with systolics in the 180s to over 200. This was not associated with significant tachycardia. It does not appear BiPAP was used for sleep apnea on previous admissions, but patient did use it overnight. Lab / Micro Data Attestation: I reviewed the patient's lab results. Result Diagrams: 06/10/22 06:06 06/10/22 06:06 Labs: Laboratory Results - last 24 hr 06/09/22 11:40: POC Glucose 218 H 06/09/22 16:59: POC Glucose 220 H 06/09/22 21:12: POC Glucose 246 H 06/10/22 06:06: Sodium 136, Potassium 3.7, Chloride 102, Carbon Dioxide 23.0, Anion Gap 11, BUN 29 H, Creatinine 1.61 H, Estim Creat Clear Calc 35.27, Est GFR (MDRD) Af Amer 53 L, Est GFR (MDRD) Non-Af 44 L, BUN/Creatinine Ratio 18.0, Glucose 298 H, Calcium 9.4 06/10/22 06:24: POC Glucose 283 H Charges/Coding Visit Charges Inpatient E&M: 03172 Init Hosp L3
[2022-06-10] MEDS: Fluticasone 0.05% 1 SPRAY NASAL.SRY 2 SPRAY NASAL (09:12)
[2022-06-10] MEDS: Enoxaparin 40 MG/0.4 ML Syringe SC (09:14)
[2022-06-10] MEDS: Pantoprazole Sodium 40 MG Tablet PO (09:16)
[2022-06-10] MEDS: guaiFENesin 1,200 MG Tablet 1200 MG PO ×2 (09:16→21:10)
[2022-06-10] MEDS: Furosemide 40 MG/4 ML Vial IV (09:16)
[2022-06-10] MEDS: Ascorbic Acid 500 MG Tablet PO (09:17)
[2022-06-10] MEDS: Isosorbide Mononitrate 30 MG Tablet PO (09:17)
[2022-06-10] MEDS: Amox/Clavulanate 875 MG Tablet PO ×2 (09:17→18:07)
[2022-06-10] MEDS: Loratadine 10 MG Tablet PO (09:17)
[2022-06-10] MEDS: Cholecalciferol (VIT D3) 25 MCG TABLET (1,000 UNITS) 100 MCG PO (09:17)
[2022-06-10] MEDS: Ferrous Sulfate 325 MG Tablet PO ×2 (09:17→17:55)
[2022-06-10] MEDS: Carvedilol 25 MG Tablet PO ×2 (09:17→17:55)
[2022-06-10 11:55] LABS: Bedside Glucose 234 mg/dL (74-106)
[2022-06-10] MEDS: cloNIDine HCl 0.1 MG Tablet PO ×2 (14:15→21:10)
[2022-06-10 17:15] LABS: Bedside Glucose 215 mg/dL (74-106)
[2022-06-10] MEDS: Furosemide 40 MG/4 ML Vial 20 MG IV (17:51)
[2022-06-10] MEDS: Senna/Docusate Sodium 1 Tablet 2 TABLET PO (17:56)
--- NOTE | 2022-06-10 18:45 | NURSING ---
Reviewed charting with Laurie Vuong RN
[2022-06-10] MEDS: Aspirin 81 MG TAB.CHEW PO (21:10)
[2022-06-10] MEDS: Montelukast 10 MG Tablet PO (21:12)
[2022-06-10 21:40] LABS: Bedside Glucose 250 mg/dL (74-106)
[2022-06-11] VITALS (20 sets, daily range): BP systolic 153–193; BP diastolic 69–92; PULSE 49–80; RESP 16–20; TEMP 35.6–36.8; O2SAT 95–98
[2022-06-11] MEDS: Ipratropium/Albuterol Sulfate 3 ML AMPUL.NEB INHALATION ×5 (02:54→19:50)
[2022-06-11] MEDS: Acetaminophen 500 MG Tablet 1000 MG PO ×3 (03:12→23:09)
[2022-06-11 05:24] LABS: Absolute Lymphocyte Count 0.73 X10^3/uL (0.83-4.51); Absolute Neutrophil Count 12.1 X10^3/uL (2.0-7.7); Basophil# 0.01 X10^3/uL; Basophil% 0.1 % (0-1); Hemoglobin 8.3 g/dL (13.0-16.5); Lymphocyte # 0.73 X10^3/ul (0.83-4.51); Lymphocyte % 5.4 % (19-41); Mean Corp Hgb Conc 30.7 g/dL (32-36); Mean Corpuscular Hgb 27.6 pg (27.0-32.0); Mean Corpuscular Volume 89.7 fL (80-94); Mean Platelet Vol. 10.5 fl (6.2-12.0); Monocyte# 0.41 X10^3/uL; NRBC Flagged by Analyzer 0 % (0-5); Neutrophil # 12.13 X10^3/uL (2.7-7.7); Neutrophil % 90.2 % (47-70); Platelet Count 365 K/mm3 (150-450); RBC Distribution Width CV 16.1 % (11.6-14.6); RBC Distribution Width SD 48.6 fl (35.1-43.9); Red Blood Count 3.01 M/mm3 (4.6-6.2); White Blood Count 13.5 K/mm3 (4.4-11.0)
[2022-06-11 05:39] LABS: Anion Gap 9 (5-15); BUN 33 mg/dL (7-18); BUN/Creat Ratio 22.9 RATIO (10-20); Calcium,Total 9.4 mg/dL (8.5-10.1); Chloride 98 mmol/L (98-107); Creatinine, Serum 1.44 mg/dL (0.70-1.30); EST Glomerular Filtration Rate 50 mL/min (>60); Est Glom Filt Rate - Afr Amer 60 mL/min (>60); Estimated Creatinine Clearance 39.43 ml/min; Glucose 245 mg/dL (74-106); Potassium 3.9 mmol/L (3.5-5.1); Sodium Level 134 mmol/L (136-145)
[2022-06-11] MEDS: 0.9% Saline Lock 10 ML Syringe IV ×4 (06:03→21:41)
[2022-06-11] MEDS: Pramipexole Di-HCl 0.25 MG Tablet PO ×3 (06:03→21:34)
[2022-06-11] MEDS: cloNIDine HCl 0.1 MG Tablet PO ×2 (06:03→21:33)
[2022-06-11] MEDS: hydrALAZINE 50 MG Tablet 100 MG PO ×3 (06:03→21:31)
--- NOTE | 2022-06-11 06:05 | PN.CC_ITS ---
Assessment & Plan Assessment/Plan (1) Acute respiratory failure with hypoxia: PLAN: Plan RECOMMENDATIONS: 1. Aggressive blood pressure control per hospitalist. 2. Continue antimicrobials to complete treatment course. 3. Continue scheduled bronchodilators and steroids. 4. Continue IV steroids, with plans for a prednisone taper at discharge. 5. Wean supplemental oxygen for saturations greater than 90%. 6. Continue diuretic therapy as tolerated by hemodynamics and renal function. IMPRESSIONS: 1. 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 His presenting oxygen requirement is likely secondary to his elevated blood pressures and predisposition for flash pulmonary edema. The patient will remain on scheduled bronchodilators and steroids. Agree with continuing antimicrobials to complete treatment course. Continue aggressive blood pressure management with additional titration per hospitalist. Continue diuresis as tolerated by hemodynamics and renal function. 2. Bilateral pleural effusion secondary to decompensated heart failure with preserved ejection fraction Continue diuretic therapy as tolerated by hemodynamics and renal function. 3. History of obstructive sleep apnea The patient has a baseline requirement on BiPAP of 15/11 centimeters of water. Recommend continuing BiPAP nightly per home regimen. 4. Colonic mass Work-up is still underway.? 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 Some concern for possible secondary diagnosis such as carcinoid.? This may explain why patient continues to have elevated blood pressures.? There are discussions about possible resection.? 5. Coronary artery disease/chronic anemia/diabetes mellitus/hyperlipidemia Complicates care, management, recovery and prognosis. Continue home medications as indicated. This note was generated with [employer] dictation software. It may contain incorrect words, spelling, and punctuation that were not noted in checking the note before signing. Subjective Subjective The patient was seen and examined at the bedside this morning. Events from the last 24 hours have been reviewed. The patient is currently afebrile, hemodynamically stable and maintaining appropriate oxygen saturations on 2 L/min via nasal cannula. The patient remains significantly hypertensive this morning. Creatinine has improved to 1.4. The patient tolerated BiPAP overnight for approximately 2 hours. He does continue to have a cough which has been largely nonproductive of sputum. Objective Data Objective Data The patient's most recent lab work, culture data and imaging studies have all been personally reviewed. Vital Signs: Vital Signs Temp Pulse Resp BP Pulse Ox O2 Del Method O2 Flow Rate 97.6 F L 80 18 193/88 H 97 Nasal Cannula 2 06/11/22 06:00 06/11/22 06:03 06/11/22 06:00 06/11/22 06:03 06/11/22 06:00 06/11/22 06:00 06/11/22 06:00 FiO2 30 06/10/22 21:54 Oxygen Flow Rate (L/min) 2 Oxygen Delivery Method Nasal Cannula Weight: 202 lb 6.15 oz Body Mass Index (BMI) 29.0 Intake & Output: Intake and Output for Last 24 Hours 06/09/22 06/10/22 06/11/22 23:59 23:59 23:59 Intake Total 1220 / 1220 960 / 1260 300 / 300 Output Total 1175 / 1175 725 / 1415 690 / 690 Balance 45 / 45 235 / -155 -390 / -390 Lab / Micro Data Attestation: I reviewed the patient's lab results. Result Diagrams: 06/12/22 05:35 06/12/22 05:35 Labs: Laboratory Results - last 24 hr 06/10/22 06:06: WBC 16.0 H, RBC 3.26 L, Hgb 8.8 L, Hct 28.8 L, MCV 88.3 D, MCH 27.0, MCHC 30.6 L D, RDW Std Deviation 47.9 H, RDW Coeff of Justin 15.9 H, Plt Count 392, MPV 11.2, Immature Gran % (Auto) 1.100 H, Neut % (Auto) 88.7 H, Lymph % (Auto) 6.9 L, [place] % (Auto) 3.2, Eos % (Auto) 0.0, Baso % (Auto) 0.1, Absolute Neuts (auto) 14.2 H, Absolute Lymphs (auto) 1.10, Nucleated RBC % 0 06/10/22 06:06: Sodium 136, Potassium 3.7, Chloride 102, Carbon Dioxide 23.0, Anion Gap 11, BUN 29 H, Creatinine 1.61 H, Estim Creat Clear Calc 35.27, Est GFR (MDRD) Af Amer 53 L, Est GFR (MDRD) Non-Af 44 L, BUN/Creatinine Ratio 18.0, Glucose 298 H, Calcium 9.4 06/10/22 06:24: POC Glucose 283 H 06/10/22 11:19: POC Glucose 234 H 06/10/22 16:32: POC Glucose 215 H 06/10/22 21:08: POC Glucose 250 H 06/11/22 05:00: WBC 13.5 H, RBC 3.01 L, Hgb 8.3 L, Hct 27.0 L, MCV 89.7, MCH 27.6, MCHC 30.7 L, RDW Std Deviation 48.6 H, RDW Coeff of [place] 16.1 H, Plt Count 365, MPV 10.5, Immature Gran % (Auto) 1.300 H, Neut % (Auto) 90.2 H, Lymph % (Auto) 5.4 L, [place] % (Auto) 3.0, Eos % (Auto) 0.0, Baso % (Auto) 0.1, Absolute Neuts (auto) 12.1 H, Absolute Lymphs (auto) 0.73 L, Nucleated RBC % 0 06/11/22 05:00: Sodium 134 L, Potassium 3.9, Chloride 98, Carbon Dioxide 27.0, Anion Gap 9, BUN 33 H, Creatinine 1.44 H, Estim Creat Clear Calc 39.43, Est GFR (MDRD) Af Amer 60, Est GFR (MDRD) Non-Af 50 L, BUN/Creatinine Ratio 22.9 H, Glucose 245 H, Calcium 9.4 Micro: Microbiology 06/08/22 22:00 Nasal Secretion SARS-CoV-2 Antigen (Rapid) - Final Rhythm Strip Rhythm Strip: Sinus Rhythm Rate: 65 Ectopy: None Physical Exam Const alert, oriented x3 and no apparent distress General Appearance: cooperative HEENT normocephalic, head/scalp atraumatic and moist oral mucous membranes Eyes PERRL, EOMs intact bilaterally and conjunctivae normal Neck supple General: trachea midline Chest inspection of chest normal Resp no use of accessory muscles Resp Narrative: Bibasilar rales with expiratory wheezes. Effort and Inspection: able to speak in complete sentences and tachypneic Cardio regular rate and regular rhythm GI normal to inspection, nondistended, normoactive bowel sounds Extremity no clubbing, cyanosis or edema Skin no rashes or lesions noted Neuro oriented x3, CN's II-XII intact bilaterally, moves all extremities and no focal motor deficits Psych cooperative and affect normal Charges/Coding Visit Charges Inpatient E&M: 40310 Subs Hosp L2
[2022-06-11] MEDS: Insulin Lispro 100 UNIT/ML INSULN.PEN SC ×4 (06:41→21:37)
[2022-06-11 07:05] LABS: Bedside Glucose 212 mg/dL (74-106)
--- NOTE | 2022-06-11 07:41 | PN.HOSP_ITS ---
Subjective Subjective Seen and examined. Follow-up for shortness of breath and acute hypoxic respiratory failure. History of COPD not on home oxygen. History of coronary artery disease. Had cardiac stents. Patient had TURP in March 2022. He had burning chest but denies now. Did not move bowel for 1 week. Patient had colonoscopy about a week ago and 7 benign polyps were removed. Objective Data Objective Data Vital Signs: Vital Signs Temp Pulse Resp BP Pulse Ox O2 Del Method O2 Flow Rate 97.6 F L 71 18 193/88 H 97 Nasal Cannula 2 06/11/22 06:00 06/11/22 07:15 06/11/22 06:00 06/11/22 06:03 06/11/22 06:00 06/11/22 06:00 06/11/22 06:00 FiO2 30 06/10/22 21:54 Oxygen Flow Rate (L/min) 2 Oxygen Delivery Method Nasal Cannula Weight: 202 lb 6.15 oz Body Mass Index (BMI) 29.0 Intake & Output: Intake and Output for Last 24 Hours 06/09/22 06/10/22 06/11/22 23:59 23:59 23:59 Intake Total 1220 / 1220 960 / 1260 300 / 300 Output Total 1175 / 1175 725 / 1415 1040 / 1040 Balance 45 / 45 235 / -155 -740 / -740 Lab / Micro Data Result Diagrams: 06/11/22 05:00 06/11/22 05:00 Labs: Laboratory Results - last 24 hr 06/10/22 06:06: WBC 16.0 H, RBC 3.26 L, Hgb 8.8 L, Hct 28.8 L, MCV 88.3 D, MCH 27.0, MCHC 30.6 L D, RDW Std Deviation 47.9 H, RDW Coeff of Justin 15.9 H, Plt Count 392, MPV 11.2, Immature Gran % (Auto) 1.100 H, Neut % (Auto) 88.7 H, Lymph % (Auto) 6.9 L, Vance % (Auto) 3.2, Eos % (Auto) 0.0, Baso % (Auto) 0.1, Absolute Neuts (auto) 14.2 H, Absolute Lymphs (auto) 1.10, Nucleated RBC % 0 06/10/22 11:19: POC Glucose 234 H 06/10/22 16:32: POC Glucose 215 H 06/10/22 21:08: POC Glucose 250 H 06/11/22 05:00: WBC 13.5 H, RBC 3.01 L, Hgb 8.3 L, Hct 27.0 L, MCV 89.7, MCH 27.6, MCHC 30.7 L, RDW Std Deviation 48.6 H, RDW Coeff of Justin 16.1 H, Plt Count 365, MPV 10.5, Immature Gran % (Auto) 1.300 H, Neut % (Auto) 90.2 H, Lymph % (Auto) 5.4 L, Vance % (Auto) 3.0, Eos % (Auto) 0.0, Baso % (Auto) 0.1, Absolute Neuts (auto) 12.1 H, Absolute Lymphs (auto) 0.73 L, Nucleated RBC % 0 06/11/22 05:00: Sodium 134 L, Potassium 3.9, Chloride 98, Carbon Dioxide 27.0, Anion Gap 9, BUN 33 H, Creatinine 1.44 H, Estim Creat Clear Calc 39.43, Est GFR (MDRD) Af Amer 60, Est GFR (MDRD) Non-Af 50 L, BUN/Creatinine Ratio 22.9 H, Glucose 245 H, Calcium 9.4 06/11/22 06:39: POC Glucose 212 H Micro: Microbiology 06/08/22 22:00 Nasal Secretion SARS-CoV-2 Antigen (Rapid) - Final Rhythm Strip Rhythm Strip: Sinus Rhythm Rate: 65 Ectopy: None Physical Exam Narrative General: Alert, Oriented x3, Cooperative, overweight BMI 29.0 kg per metered square HEENT: Atraumatic, PERRLA, EOMI, Normocephalic Oral: No Gingival or Mucosal Lesions/ Ulcerations Neck: Supple, No JVD, Negative Carotid Bruits Lungs: Air entry diminished in bilateral lung bases. Fine bilateral expiratory rhonchi. Cardiovascular: Sinus rhythm, Normal S1, Normal S2, No murmurs Abdomen: Bowel Sounds Present, Soft, Non Tender, Non-Distended : No renal angle tenderness. No suprapubic tenderness. Extremities: Mild bilateral chronic pitting edema, Capillary Refill Less than 3 Seconds Skin: No rashes, No breakdown Musculoskeletal: No Tenderness to Palpation of Joints or Extremities. ROM restricted. Neurological: Cranial nerves II-XII grossly intact, DTR 2+/4, muscle strength 4+/5 at major joints. Psych/Mental Status: Flat affect. Assessment & Plan Assessment/Plan (1) Acute respiratory failure with hypoxia: PLAN: multifactorial: Secondary to acute exacerbation of COPD, CHF exacerbation, pleural effusions and right upper lobe pneumonia Wean oxygen as tolerated. Patient on Augmentin. Chest CTA was visualized and bilateral pleural effusion and diffuse interstitial disease as well as small area consolidation peripherally in the right upper lobe. (2) Acute exacerbation of chronic obstructive pulmonary disease: PLAN: Bronchodilators and methylprednisolone. Incentive spirometry and Pep (3) (HFpEF) heart failure with preserved ejection fraction: PLAN: EF 60% from 2D echocardiogram on May 15, 2022. IV furosemide, decrease from 40-20 IV twice daily given his worsening kidney function. Continue with carvedilol and isosorbide and hydralazine (4) Hypertensive urgency: PLAN: Improved but still overall elevated Continue isosorbide 30, hydralazine 100 3 times daily and carvedilol 25 twice daily Allergy to dihydropyridine calcium channel blockers NoACE inhibitor's nor ARB's given his worsened kidney function at this time. Add clonidine (5) Diabetes mellitus: PLAN: Metformin held given the CTA Sliding scale insulin (6) Pneumonia: QUALIFIERS: Laterality: unspecified laterality Lung location: unspecified part of lung Pneumonia type: due to Pneumococcus Qualified Code(s): J13 - Pneumonia due to Streptococcus pneumoniae PLAN: Presumed pneumococcal. Subsequent visit Continue with amoxicillin/clavulanic acid PLAN: Plan DVT prophylaxis: Subcutaneous Lovenox ordered. Charges/Coding Visit Charges Inpatient E&M: 21635 [facility] Hosp L2
[2022-06-11] MEDS: Furosemide 40 MG/4 ML Vial 20 MG IV ×2 (08:14→17:20)
[2022-06-11] MEDS: Enoxaparin 40 MG/0.4 ML Syringe SC (08:14)
[2022-06-11] MEDS: guaiFENesin 1,200 MG Tablet 1200 MG PO ×2 (08:14→21:34)
[2022-06-11] MEDS: Fluticasone 0.05% 1 SPRAY NASAL.SRY 2 SPRAY NASAL (08:14)
[2022-06-11] MEDS: Pantoprazole Sodium 40 MG Tablet PO (08:14)
[2022-06-11] MEDS: Cholecalciferol (VIT D3) 25 MCG TABLET (1,000 UNITS) 100 MCG PO (08:15)
[2022-06-11] MEDS: Amox/Clavulanate 875 MG Tablet PO ×2 (08:15→16:13)
[2022-06-11] MEDS: Ferrous Sulfate 325 MG Tablet PO ×2 (08:15→16:14)
[2022-06-11] MEDS: Carvedilol 25 MG Tablet PO (08:17)
[2022-06-11] MEDS: Ascorbic Acid 500 MG Tablet PO (08:17)
[2022-06-11] MEDS: Isosorbide Mononitrate 30 MG Tablet PO (08:18)
[2022-06-11] MEDS: Loratadine 10 MG Tablet PO (08:18)
[2022-06-11] MEDS: Senna/Docusate Sodium 1 Tablet 2 TABLET PO (08:25)
[2022-06-11] MEDS: hydrALAZINE 20 MG/ML Vial 10 MG IV (11:26)
[2022-06-11 12:00] LABS: Bedside Glucose 291 mg/dL (74-106)
[2022-06-11 17:46] LABS: Bedside Glucose 226 mg/dL (74-106)
[2022-06-11] MEDS: Atorvastatin Calcium 40 MG Tablet PO (21:33)
[2022-06-11] MEDS: Aspirin 81 MG TAB.CHEW PO (21:34)
[2022-06-11] MEDS: Montelukast 10 MG Tablet PO (21:35)
[2022-06-12] VITALS (18 sets, daily range): BP systolic 154–171; BP diastolic 62–77; PULSE 49–76; RESP 16–23; TEMP 35.8–36.6; O2SAT 88–100
[2022-06-12 00:36] LABS: Bedside Glucose 330 mg/dL (74-106)
[2022-06-12 05:56] LABS: Absolute Lymphocyte Count 0.67 X10^3/uL (0.83-4.51); Basophil# 0.01 X10^3/uL; Basophil% 0.1 % (0-1); Hematocrit 27.1 % (40-54); Hemoglobin 8.5 g/dL (13.0-16.5); Lymphocyte # 0.67 X10^3/ul (0.83-4.51); Lymphocyte % 6.6 % (19-41); Mean Corp Hgb Conc 31.4 g/dL (32-36); Mean Corpuscular Hgb 28.1 pg (27.0-32.0); Mean Corpuscular Volume 89.7 fL (80-94); Mean Platelet Vol. 10.7 fl (6.2-12.0); Monocyte# 0.39 X10^3/uL; Monocyte% 3.8 % (0-10); NRBC Flagged by Analyzer 0 % (0-5); Neutrophil % 88.3 % (47-70); Platelet Count 358 K/mm3 (150-450); RBC Distribution Width SD 48.6 fl (35.1-43.9); Red Blood Count 3.02 M/mm3 (4.6-6.2); White Blood Count 10.2 K/mm3 (4.4-11.0)
[2022-06-12] MEDS: Pramipexole Di-HCl 0.25 MG Tablet PO ×3 (06:41→20:20)
[2022-06-12] MEDS: cloNIDine HCl 0.1 MG Tablet PO ×3 (06:41→20:18)
[2022-06-12] MEDS: hydrALAZINE 50 MG Tablet 100 MG PO ×3 (06:41→20:17)
[2022-06-12] MEDS: 0.9% Saline Lock 10 ML Syringe IV ×5 (06:45→20:28)
[2022-06-12] MEDS: Insulin Lispro 100 UNIT/ML INSULN.PEN SC ×4 (06:48→20:15)
[2022-06-12 06:50] LABS: Anion Gap 10 (5-15); BUN 35 mg/dL (7-18); BUN/Creat Ratio 24.8 RATIO (10-20); Calcium,Total 9.1 mg/dL (8.5-10.1); Chloride 99 mmol/L (98-107); Creatinine, Serum 1.41 mg/dL (0.70-1.30); EST Glomerular Filtration Rate 51 mL/min (>60); Est Glom Filt Rate - Afr Amer 61 mL/min (>60); Estimated Creatinine Clearance 40.27 ml/min; Glucose 278 mg/dL (74-106); Potassium 4.2 mmol/L (3.5-5.1); Sodium Level 133 mmol/L (136-145)
[2022-06-12] MEDS: Ipratropium/Albuterol Sulfate 3 ML AMPUL.NEB INHALATION ×4 (07:11→19:37)
[2022-06-12 08:20] LABS: Bedside Glucose 272 mg/dL (74-106)
[2022-06-12] MEDS: Amox/Clavulanate 875 MG Tablet PO ×2 (09:24→16:55)
[2022-06-12] MEDS: Loratadine 10 MG Tablet PO (09:25)
[2022-06-12] MEDS: Fluticasone 0.05% 1 SPRAY NASAL.SRY 2 SPRAY NASAL (09:25)
[2022-06-12] MEDS: Ferrous Sulfate 325 MG Tablet PO ×2 (09:25→16:56)
[2022-06-12] MEDS: Isosorbide Mononitrate 30 MG Tablet PO (09:27)
[2022-06-12] MEDS: Enoxaparin 40 MG/0.4 ML Syringe SC (09:28)
[2022-06-12] MEDS: Furosemide 40 MG/4 ML Vial 20 MG IV (09:28)
[2022-06-12] MEDS: guaiFENesin 1,200 MG Tablet 1200 MG PO ×2 (09:29→20:20)
[2022-06-12] MEDS: Pantoprazole Sodium 40 MG Tablet PO (09:29)
[2022-06-12] MEDS: Cholecalciferol (VIT D3) 25 MCG TABLET (1,000 UNITS) 100 MCG PO (09:30)
[2022-06-12] MEDS: Ascorbic Acid 500 MG Tablet PO (09:30)
--- NOTE | 2022-06-12 10:24 | CASEMGMT ---
Social Work Consult: correction placement Referral source: motion study technician This social welfare administrator met with patient in room. Introduced self and social welfare administrator role. Patient agreeable to speak with this social welfare administrator. This social welfare administrator broached conversation of assisted placement for patient. Patient reports to have been on TCU in the past and this is the only facility that patient is wanting to go to. This social welfare administrator inquired if patient would like a list of nursing homes that are in-network with patient insurance. Patient states I don't need a list. Patient reports that patient spouse is main contact for patient and is who should be updated on patient discharge plan. Patient plans to update spouse that this social welfare administrator was by the room and spoke with patient today. Patient aware of pre-cert process and insurance needing to approve SNF prior to patient being able to discharge to TCU covered by insurance. Telephone call to [facility], Juju. Juju reports to be able to accept patient. Juju to start pre-cert. PLAN: TCU, skilled pending pre-cert and medical clearance. Delaney ALLEN, RABIA
--- NOTE | 2022-06-12 11:22 | PN.HOSP_ITS ---
Subjective Subjective Patient in mild short of breath. Objective Data Objective Data Vital Signs: Vital Signs Temp Pulse Resp BP Pulse Ox O2 Del Method O2 Flow Rate 96.4 F L 58 L 18 154/64 H 96 Nasal Cannula 2 06/12/22 09:15 06/12/22 09:15 06/12/22 09:15 06/12/22 09:15 06/12/22 09:15 06/12/22 09:20 06/12/22 09:20 FiO2 28 06/11/22 23:24 Oxygen Flow Rate (L/min) 2 Oxygen Delivery Method Nasal Cannula Weight: 202 lb 6.15 oz Body Mass Index (BMI) 29.0 Intake & Output: Intake and Output for Last 24 Hours 06/10/22 06/11/22 06/12/22 23:59 23:59 23:59 Intake Total 960 / 1260 300 / 300 Output Total 725 / 1415 1340 / 1640 600 / 600 Balance 235 / -155 -1040 / -1340 -600 / -600 Lab / Micro Data Result Diagrams: 06/12/22 05:35 06/12/22 05:35 Labs: Laboratory Results - last 24 hr 06/11/22 11:15: POC Glucose 291 H 06/11/22 16:09: POC Glucose 226 H 06/11/22 21:37: POC Glucose 330 H 06/12/22 05:35: WBC 10.2, RBC 3.02 L, Hgb 8.5 L, Hct 27.1 L, MCV 89.7, MCH 28.1, MCHC 31.4 L, RDW Std Deviation 48.6 H, RDW Coeff of Justin 16.0 H, Plt Count 358, MPV 10.7, Immature Gran % (Auto) 1.200 H, Neut % (Auto) 88.3 H, Lymph % (Auto) 6.6 L, [place] % (Auto) 3.8, Eos % (Auto) 0.0, Baso % (Auto) 0.1, Absolute Neuts (auto) 9.0 H, Absolute Lymphs (auto) 0.67 L, Nucleated RBC % 0 06/12/22 05:35: Sodium 133 L, Potassium 4.2, Chloride 99, Carbon Dioxide 24.0, Anion Gap 10, BUN 35 H, Creatinine 1.41 H, Estim Creat Clear Calc 40.27, Est GFR (MDRD) Af Amer 61, Est GFR (MDRD) Non-Af 51 L, BUN/Creatinine Ratio 24.8 H, Glucose 278 H, Calcium 9.1 06/12/22 06:47: POC Glucose 272 H Micro: Microbiology 06/08/22 22:00 Nasal Secretion SARS-CoV-2 Antigen (Rapid) - Final Rhythm Strip Rhythm Strip: Sinus Rhythm Rate: 65 Ectopy: None Physical Exam Narrative General: Alert, Oriented x3, Cooperative, overweight BMI 29.0 KG per square meter HEENT: Atraumatic, PERRLA, EOMI, Normocephalic Oral: No Gingival or Mucosal Lesions/ Ulcerations. Deep oropharyngeal structures not clearly visualized Neck: Supple, No JVD, Negative Carotid Bruits Lungs: Air entry diminished in bilateral lung bases. Fine bilateral expiratory rhonchi. Cardiovascular: Sinus rhythm, Normal S1, Normal S2, No murmurs Abdomen: Bowel Sounds Present, Soft, Non Tender, Non-Distended : No renal angle tenderness. No suprapubic tenderness. Extremities: Mild bilateral chronic pitting edema, Capillary Refill Less than 3 Seconds Skin: No rashes, No breakdown Musculoskeletal: No Tenderness to Palpation of Joints or Extremities. ROM restricted. Neurological: Cranial nerves II-XII grossly intact, DTR 2+/4, muscle strength 4+/5 at major joints. Psych/Mental Status: Flat affect. Assessment & Plan Assessment/Plan (1) Acute exacerbation of chronic obstructive pulmonary disease: PLAN: Secondary to acute exacerbation of COPD, CHF exacerbation, pleural effusions and right upper lobe pneumonia Patient has been on 2 L of oxygen and ABG 7.42/35/96 on 30% FiO2 BiPAP which is equal to about 2.5 L of oxygen through nasal cannula. Patient has been on 2 L of oxygen throughout hospital course. I do not think patient meets the criteria for acute hypoxic respiratory failure therefore ruled out. Sales Contracts Analyst also agree that patient is hypoxic but not acute hypoxic respiratory failure. Patient is not using accessory muscles or conversational dyspnea or accessory muscles at rest but he gets short of breath on walking to bathroom or short distance Patient on Augmentin. Chest CTA was visualized and bilateral pleural effusion and diffuse interstitial disease as well as small area consolidation peripherally in the right upper lobe. Bronchodilators and methylprednisolone. Incentive spirometry and Pep wanted the patient to go to rehab in TCU. Patient has multiple recurrent admission for shortness of breath, pleural effusion and pneumonia. (2) (HFpEF) heart failure with preserved ejection fraction: PLAN: EF 60% from 2D echocardiogram on May 15, 2022. IV furosemide, decrease from 40-20 IV twice daily given his worsening kidney function. Continue with carvedilol and isosorbide and hydralazine 06/12: Lasix changed to 40 mg IV daily.Spironolactone added. (3) Hypertensive urgency: PLAN: Improved but still overall elevated Continue isosorbide 30, hydralazine 100 milligrams 3 times daily and carvedilol 25 twice daily Allergy to dihydropyridine calcium channel blockers NoACE inhibitor's nor ARB's given his worsened kidney function at this time. Add clonidine (4) Diabetes mellitus: PLAN: Metformin held given the CTA Sliding scale insulin (5) Pneumonia: QUALIFIERS: Laterality: unspecified laterality Lung location: unspecified part of lung Pneumonia type: due to Pneumococcus Qualified C ode(s): J13 - Pneumonia due to Streptococcus pneumoniae PLAN: Presumed pneumococcal. Subsequent visit Continue with amoxicillin/clavulanic acid PLAN: Plan DVT prophylaxis: Subcutaneous Lovenox ordered. Charges/Coding Visit Charges Inpatient E&M: 88856 Subs Hosp L2
[2022-06-12] MEDS: Insulin Lispro 100 UNIT/ML INSULN.PEN 10 UNIT SC ×2 (11:42→16:53)
[2022-06-12] MEDS: Insulin Glargine-YFGN 100 UNIT/ML Pen 15 UNIT SC ×2 (11:43→20:19)
[2022-06-12 12:15] LABS: Bedside Glucose 302 mg/dL (74-106)
[2022-06-12] MEDS: Polyethylene Glycol 3350 17 GM PACKET PO (14:48)
[2022-06-12] MEDS: Senna/Docusate Sodium 1 Tablet 2 TABLET PO (14:50)
[2022-06-12] MEDS: Spironolactone 25 MG Tablet PO (16:48)
[2022-06-12] MEDS: Furosemide 40 MG/4 ML Vial IV (16:50)
[2022-06-12] MEDS: Acetaminophen 500 MG Tablet 1000 MG PO (16:58)
[2022-06-12 17:45] LABS: Bedside Glucose 218 mg/dL (74-106)
[2022-06-12] MEDS: Aspirin 81 MG TAB.CHEW PO (20:18)
[2022-06-12] MEDS: Montelukast 10 MG Tablet PO (20:21)
[2022-06-12 23:10] LABS: Bedside Glucose 265 mg/dL (74-106)
[2022-06-13] VITALS (18 sets, daily range): BP systolic 134–169; BP diastolic 56–74; PULSE 50–79; RESP 16–18; TEMP 36.1–36.5; O2SAT 96–99
[2022-06-13] MEDS: 0.9% Saline Lock 10 ML Syringe IV ×2 (06:13→08:35)
[2022-06-13 06:14] LABS: Absolute Lymphocyte Count 0.74 X10^3/uL (0.83-4.51); Absolute Neutrophil Count 7.5 X10^3/uL (2.0-7.7); Basophil# 0.01 X10^3/uL; Basophil% 0.1 % (0-1); Hematocrit 27.6 % (40-54); Hemoglobin 8.6 g/dL (13.0-16.5); Lymphocyte # 0.74 X10^3/ul (0.83-4.51); Lymphocyte % 8.3 % (19-41); Mean Corp Hgb Conc 31.2 g/dL (32-36); Mean Corpuscular Hgb 27.9 pg (27.0-32.0); Mean Corpuscular Volume 89.6 fL (80-94); Mean Platelet Vol. 10.9 fl (6.2-12.0); Monocyte# 0.45 X10^3/uL; Monocyte% 5.1 % (0-10); NRBC Flagged by Analyzer 0 % (0-5); Neutrophil # 7.54 X10^3/uL (2.7-7.7); Platelet Count 339 K/mm3 (150-450); RBC Distribution Width CV 15.9 % (11.6-14.6); Red Blood Count 3.08 M/mm3 (4.6-6.2); White Blood Count 8.9 K/mm3 (4.4-11.0)
[2022-06-13] MEDS: hydrALAZINE 50 MG Tablet 100 MG PO ×3 (06:15→21:48)
[2022-06-13] MEDS: Pramipexole Di-HCl 0.25 MG Tablet PO ×3 (06:16→21:50)
[2022-06-13] MEDS: cloNIDine HCl 0.1 MG Tablet PO ×3 (06:16→21:50)
[2022-06-13] MEDS: Insulin Lispro 100 UNIT/ML INSULN.PEN SC ×3 (06:21→16:10)
[2022-06-13 06:43] LABS: Anion Gap 8 (5-15); BUN 35 mg/dL (7-18); BUN/Creat Ratio 24.5 RATIO (10-20); Calcium,Total 9.1 mg/dL (8.5-10.1); Chloride 98 mmol/L (98-107); Creatinine, Serum 1.43 mg/dL (0.70-1.30); EST Glomerular Filtration Rate 50 mL/min (>60); Est Glom Filt Rate - Afr Amer 61 mL/min (>60); Glucose 228 mg/dL (74-106); Sodium Level 133 mmol/L (136-145)
[2022-06-13] MEDS: Ipratropium/Albuterol Sulfate 3 ML AMPUL.NEB INHALATION ×3 (06:53→20:19)
[2022-06-13 08:05] LABS: Bedside Glucose 205 mg/dL (74-106)
[2022-06-13] MEDS: Insulin Lispro 100 UNIT/ML INSULN.PEN 10 UNIT SC ×2 (08:23→12:10)
[2022-06-13] MEDS: Insulin Glargine-YFGN 100 UNIT/ML Pen 15 UNIT SC (08:24)
[2022-06-13] MEDS: Acetaminophen 500 MG Tablet 1000 MG PO ×2 (08:26→21:47)
[2022-06-13] MEDS: Senna/Docusate Sodium 1 Tablet 2 TABLET PO ×2 (08:26→21:50)
[2022-06-13] MEDS: Enoxaparin 40 MG/0.4 ML Syringe SC (08:27)
[2022-06-13] MEDS: Polyethylene Glycol 3350 17 GM PACKET PO (08:27)
[2022-06-13] MEDS: Cholecalciferol (VIT D3) 25 MCG TABLET (1,000 UNITS) 100 MCG PO (08:29)
[2022-06-13] MEDS: Furosemide 40 MG/4 ML Vial IV (08:29)
[2022-06-13] MEDS: Ascorbic Acid 500 MG Tablet PO (08:30)
[2022-06-13] MEDS: guaiFENesin 1,200 MG Tablet 1200 MG PO ×2 (08:30→21:50)
[2022-06-13] MEDS: Amox/Clavulanate 875 MG Tablet PO ×2 (08:30→16:11)
[2022-06-13] MEDS: Pantoprazole Sodium 40 MG Tablet PO (08:31)
[2022-06-13] MEDS: Loratadine 10 MG Tablet PO (08:31)
[2022-06-13] MEDS: Carvedilol 25 MG Tablet PO ×2 (08:31→16:12)
[2022-06-13] MEDS: Isosorbide Mononitrate 30 MG Tablet PO (08:32)
[2022-06-13] MEDS: Spironolactone 25 MG Tablet PO (08:32)
[2022-06-13] MEDS: Ferrous Sulfate 325 MG Tablet PO ×2 (08:33→16:12)
[2022-06-13] MEDS: Fluticasone 0.05% 1 SPRAY NASAL.SRY 2 SPRAY NASAL (08:33)
[2022-06-13 11:35] LABS: Bedside Glucose 243 mg/dL (74-106)
[2022-06-13] MEDS: Bisacodyl 10 MG Suppository RC (11:51)
--- NOTE | 2022-06-13 12:38 | PCM.PN.INT ---
Assessment & Plan Assessment/Plan (1) Acute respiratory failure with hypoxia: PLAN: Plan RECOMMENDATIONS: 1. Aggressive blood pressure control per hospitalist. 2. Continue antimicrobials to complete treatment course. 3. Continue scheduled bronchodilators and steroids. 4. Wean supplemental oxygen for saturations greater than 90%. 5. Continue diuretic therapy as tolerated by hemodynamics and renal function. IMPRESSIONS: 1. 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 His presenting oxygen requirement is likely secondary to his elevated blood pressures and predisposition for flash pulmonary edema. The patient will remain on scheduled bronchodilators and steroids. Agree with continuing antimicrobials to complete treatment course. Continue aggressive blood pressure management with additional titration per hospitalist. Continue diuresis as tolerated by hemodynamics and renal function. 2. Bilateral pleural effusion secondary to decompensated heart failure with preserved ejection fraction Continue diuretic therapy as tolerated by hemodynamics and renal function. 3. History of obstructive sleep apnea The patient has a baseline requirement on BiPAP of 15/11 centimeters of water. Recommend continuing BiPAP nightly per home regimen. 4. Colonic mass Work-up is still underway.? 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 Some concern for possible secondary diagnosis such as carcinoid.? This may explain why patient continues to have elevated blood pressures.? There are discussions about possible resection.? 5. Coronary artery disease/chronic anemia/diabetes mellitus/hyperlipidemia Complicates care, management, recovery and prognosis. Continue home medications as indicated. This note was generated with Agent Panda dictation software. It may contain incorrect words, spelling, and punctuation that were not noted in checking the note before signing. Subjective Subjective The patient was seen and examined at the bedside this morning. Events from the last 24 hours have been reviewed. The patient is currently afebrile, hemodynamically stable and maintaining appropriate oxygen saturations on 2 L/min via nasal cannula. The patient is documented to be overall net -3.8 L for the hospitalization. Objective Data Objective Data The patient's most recent lab work, culture data and imaging studies have all been personally reviewed. Vital Signs: Vital Signs Temp Pulse Resp BP Pulse Ox O2 Del Method O2 Flow Rate 97.1 F L 64 16 148/71 H 97 Nasal Cannula 2 06/13/22 09:27 06/13/22 11:00 06/13/22 10:42 06/13/22 09:27 06/13/22 09:27 06/13/22 09:27 06/13/22 06:53 FiO2 28 06/11/22 23:24 Oxygen Flow Rate (L/min) 2 Oxygen Delivery Method Nasal Cannula Weight: 202 lb 6.15 oz Body Mass Index (BMI) 29.0 Intake & Output: Intake and Output for Last 24 Hours 06/11/22 06/12/22 06/13/22 23:59 23:59 23:59 Intake Total 300 / 300 480 / 480 400 / 400 Output Total 1340 / 1640 1800 / 2425 2175 / 2175 Balance -1040 / -1340 -1320 / -1945 -1775 / -1775 Lab / Micro Data Attestation: I reviewed the patient's lab results. Result Diagrams: 06/14/22 06:08 06/13/22 05:45 Labs: Laboratory Results - last 24 hr 06/12/22 16:46: POC Glucose 218 H 06/12/22 20:14: POC Glucose 265 H 06/13/22 05:45: WBC 8.9, RBC 3.08 L, Hgb 8.6 L, Hct 27.6 L, MCV 89.6, MCH 27.9, MCHC 31.2 L, RDW Std Deviation 48.0 H, RDW Coeff of Justin 15.9 H, Plt Count 339, MPV 10.9, Immature Gran % (Auto) 1.500 H, Neut % (Auto) 85.0 H, Lymph % (Auto) 8.3 L, [place] % (Auto) 5.1, Eos % (Auto) 0.0, Baso % (Auto) 0.1, Absolute Neuts (auto) 7.5, Absolute Lymphs (auto) 0.74 L, Nucleated RBC % 0 06/13/22 05:45: Sodium 133 L, Potassium 4.0, Chloride 98, Carbon Dioxide 27.0, Anion Gap 8, BUN 35 H, Creatinine 1.43 H, Estim Creat Clear Calc 39.70, Est GFR (MDRD) Af Amer 61, Est GFR (MDRD) Non-Af 50 L, BUN/Creatinine Ratio 24.5 H, Glucose 228 H, Calcium 9.1 06/13/22 06:20: POC Glucose 205 H 06/13/22 11:14: POC Glucose 243 H Micro: Microbiology 06/08/22 22:00 Nasal Secretion SARS-CoV-2 Antigen (Rapid) - Final Rhythm Strip Rhythm Strip: Sinus Rhythm Rate: 65 Ectopy: None Physical Exam Const alert, oriented x3 and no apparent distress General Appearance: cooperative HEENT normocephalic, head/scalp atraumatic and moist oral mucous membranes Eyes PERRL, EOMs intact bilaterally and conjunctivae normal Neck supple General: trachea midline Chest inspection of chest normal Resp no use of accessory muscles Effort and Inspection: able to speak in complete sentences Auscultation: diminished lung sounds Cardio regular rate and regular rhythm GI normal to inspection, nondistended, normoactive bowel sounds Extremity no clubbing, cyanosis or edema Skin no rashes or lesions noted Neuro oriented x3, CN's II-XII intact bilaterally, moves all extremities and no focal motor deficits Psych cooperative and affect normal Charges/Coding Visit Charges Inpatient E&M: 83866 Subs Hosp L2
--- NOTE | 2022-06-13 13:08 | PN.HOSP_ITS ---
Subjective Subjective Follow-up for COPD exacerbation and heart failure. Patient shortness of breath is better. No chest pain. Has not moved bowels yet. Dulcolax suppository ordered. Objective Data Objective Data Vital Signs: Vital Signs Temp Pulse Resp BP Pulse Ox O2 Del Method O2 Flow Rate 97.1 F L 64 16 148/71 H 97 Nasal Cannula 2 06/13/22 09:27 06/13/22 11:00 06/13/22 10:42 06/13/22 09:27 06/13/22 09:27 06/13/22 09:27 06/13/22 06:53 FiO2 28 06/11/22 23:24 Oxygen Flow Rate (L/min) 2 Oxygen Delivery Method Nasal Cannula Weight: 202 lb 6.15 oz Body Mass Index (BMI) 29.0 Intake & Output: Intake and Output for Last 24 Hours 06/11/22 06/12/22 06/13/22 23:59 23:59 23:59 Intake Total 300 / 300 480 / 480 400 / 400 Output Total 1340 / 1640 1800 / 2425 2175 / 2175 Balance -1040 / -1340 -1320 / -1945 -1775 / -1775 Lab / Micro Data Result Diagrams: 06/13/22 05:45 06/13/22 05:45 Labs: Laboratory Results - last 24 hr 06/12/22 16:46: POC Glucose 218 H 06/12/22 20:14: POC Glucose 265 H 06/13/22 05:45: WBC 8.9, RBC 3.08 L, Hgb 8.6 L, Hct 27.6 L, MCV 89.6, MCH 27.9, MCHC 31.2 L, RDW Std Deviation 48.0 H, RDW Coeff of Justin 15.9 H, Plt Count 339, MPV 10.9, Immature Gran % (Auto) 1.500 H, Neut % (Auto) 85.0 H, Lymph % (Auto) 8.3 L, [place] % (Auto) 5.1, Eos % (Auto) 0.0, Baso % (Auto) 0.1, Absolute Neuts (auto) 7.5, Absolute Lymphs (auto) 0.74 L, Nucleated RBC % 0 06/13/22 05:45: Sodium 133 L, Potassium 4.0, Chloride 98, Carbon Dioxide 27.0, Anion Gap 8, BUN 35 H, Creatinine 1.43 H, Estim Creat Clear Calc 39.70, Est GFR (MDRD) Af Amer 61, Est GFR (MDRD) Non-Af 50 L, BUN/Creatinine Ratio 24.5 H, Glucose 228 H, Calcium 9.1 06/13/22 06:20: POC Glucose 205 H 06/13/22 11:14: POC Glucose 243 H Micro: Microbiology 06/08/22 22:00 Nasal Secretion SARS-CoV-2 Antigen (Rapid) - Final Rhythm Strip Rhythm Strip: Sinus Rhythm Rate: 65 Ectopy: None Physical Exam Narrative General: Alert, Oriented x3, Cooperative, overweight BMI 29.0 KG per square meter HEENT: Atraumatic, PERRLA, EOMI, Normocephalic Oral: No Gingival or Mucosal Lesions/ Ulcerations. Deep oropharyngeal structures not clearly visualized Neck: Supple, No JVD, Negative Carotid Bruits Lungs: Air entry diminished in bilateral lung bases. Fine bilateral expiratory rhonchi. Mild hypoxia Cardiovascular: Sinus rhythm, Normal S1, Normal S2, No murmurs Abdomen: Bowel Sounds Present, Soft, Non Tender, Non-Distended : No renal angle tenderness. No suprapubic tenderness. Extremities: Mild bilateral chronic pitting edema, Capillary Refill Less than 3 Seconds Skin: No rashes, No breakdown Musculoskeletal: No Tenderness to Palpation of Joints or Extremities. ROM restricted. Neurological: Cranial nerves II-XII grossly intact, DTR 2+/4, muscle strength 4+/5 at major joints. Psych/Mental Status: Flat affect. Assessment & Plan Assessment/Plan (1) Acute exacerbation of chronic obstructive pulmonary disease: PLAN: Secondary to acute exacerbation of COPD, CHF exacerbation, pleural effusions and right upper lobe pneumonia Patient has been on 2 L of oxygen and ABG 7.42/35/96 on 30% FiO2 BiPAP which is equal to about 2.5 L of oxygen through nasal cannula. Patient has been on 2 L of oxygen throughout hospital course. I do not think patient meets the criteria for acute hypoxic respiratory failure therefore ruled out. Industrial Engineering Professor also agree that patient is hypoxic but not acute hypoxic respiratory failure. Patient is not using accessory muscles or conversational dyspnea or accessory muscles at rest but he gets short of breath on walking to bathroom or short distance Patient on Augmentin. Chest CTA was visualized and bilateral pleural effusion and diffuse interstitial disease as well as small area consolidation peripherally in the right upper lobe. Bronchodilators and methylprednisolone. Incentive spirometry and Pep wanted the patient to go to rehab in TCU. Patient has multiple recurrent admission for shortness of breath, pleural effusion and pneumonia. Hemoglobin is stable about 8.5 g% daily. Discontinue Solu-Medrol and start on prednisone 40 mg daily for 5 days. (2) (HFpEF) heart failure with preserved ejection fraction: PLAN: EF 60% from 2D echocardiogram on May 15, 2022. IV furosemide changed to 40 mg daily from-20 IV twice daily given his worsening kidney function. Continue with carvedilol and isosorbide and hydralazine 06/12: Lasix changed to 40 mg IV daily.Spironolactone added. 06/07: Lasix changed to 40 mg daily. Electrolytes are in acceptable limit. Patient is holding creatinine 1.43 per (3) Hypertensive urgency: PLAN: Improved but still overall elevated Continue isosorbide 30, hydralazine 100 milligrams 3 times daily and carvedilol 25 twice daily Allergy to dihydropyridine calcium channel blockers NoACE inhibitor's nor ARB's given his worsened kidney function at this time. On clonidine (4) Diabetes mellitus: PLAN: Metformin held given the CTA Sliding scale insulin 06/07: Humalog insulin dose and Lantus dose increased. Accu-Cheks and BMP glucose is high. (5) Pneumonia: QUALIFIERS: Pneumonia type: due to Pneumococcus Laterality: unspecified laterality Lung location: unspecified part of lung Qualified Code(s): J13 - Pneumonia due to Streptococcus pneumoniae PLAN: Presumed pneumococcal. Subsequent visit Continue with amoxicillin/clavulanic acid Constipation: Patient not mobile therefore Dulcolax suppository ordered. If no further bowel movement, patient can have Dulcolax 1 dose of 10 mg oral. Patient already on MiraLAX and senna S. PLAN: Plan DVT prophylaxis: Subcutaneous Lovenox ordered. Laboratory Results Discharge plan to TCU 06/12/22 16:46: POC Glucose 218 H 06/12/22 20:14: POC Glucose 265 H 06/13/22 05:45: WBC 8.9, RBC 3.08 L, Hgb 8.6 L, Hct 27.6 L, MCV 89.6, MCH 27.9, MCHC 31.2 L, RDW Std Deviation 48.0 H, RDW Coeff of Justin 15.9 H, Plt Count 339, MPV 10.9, Immature Gran % (Auto) 1.500 H, Neut % (Auto) 85.0 H, Lymph % (Auto) 8.3 L, [place] % (Auto) 5.1, Eos % (Auto) 0.0, Baso % (Auto) 0.1, Absolute Neuts (auto) 7.5, Absolute Lymphs (auto) 0.74 L, Nucleated RBC % 0 06/13/22 05:45: Sodium 133 L, Potassium 4.0, Chloride 98, Carbon Dioxide 27.0, Anion Gap 8, BUN 35 H, Creatinine 1.43 H, Estim Creat Clear Calc 39.70, Est GFR (MDRD) Af Amer 61, Est GFR (MDRD) Non-Af 50 L, BUN/Creatinine Ratio 24.5 H, Glucose 228 H, Calcium 9.1 06/13/22 06:20: POC Glucose 205 H 06/13/22 11:14: POC Glucose 243 H Charges/Coding Visit Charges Inpatient E&M: 12051 Subs Hosp L2
--- NOTE | 2022-06-13 15:04 | CASEMGMT ---
SW spoke with patient's and patient per her request. SW let them know we are still waiting on insurance to approve patient for TCU. Patient's asked when SW will know about insurance. BRYAN explained SW has no way of knowing when insurance will give their answer. SW assured them that as soon as SW hears SW will notify patient and patient's . SW told patient's SW can notify her by phone if she is not at [facility]. BRYAN can also leave her a voice mail. Plan: d/c to [facility] TCU pending insurance approval. Mireya Arora PIT OPERATORKayla HARRISON
[2022-06-13] MEDS: Insulin Lispro 100 UNIT/ML INSULN.PEN 15 UNIT SC (16:11)
[2022-06-13 16:50] LABS: Bedside Glucose 164 mg/dL (74-106)
[2022-06-13] MEDS: Atorvastatin Calcium 40 MG Tablet PO (21:50)
[2022-06-13] MEDS: Aspirin 81 MG TAB.CHEW PO (21:50)
[2022-06-13] MEDS: Montelukast 10 MG Tablet PO (21:51)
[2022-06-14] VITALS (14 sets, daily range): BP systolic 130–171; BP diastolic 59–71; PULSE 49–64; RESP 16–18; TEMP 35.5–36.8; O2SAT 95–99
[2022-06-14 00:31] LABS: Bedside Glucose 93 mg/dL (74-106)
[2022-06-14] MEDS: Pramipexole Di-HCl 0.25 MG Tablet PO ×2 (06:20→15:02)
[2022-06-14] MEDS: cloNIDine HCl 0.1 MG Tablet PO ×2 (06:20→13:59)
[2022-06-14] MEDS: hydrALAZINE 50 MG Tablet 100 MG PO ×2 (06:20→13:59)
[2022-06-14 06:36] LABS: Absolute Lymphocyte Count 1.64 X10^3/uL (0.83-4.51); Absolute Neutrophil Count 7.7 X10^3/uL (2.0-7.7); Basophil# 0.01 X10^3/uL; Basophil% 0.1 % (0-1); Eosinophil# 0.05 X10^3/uL; Eosinophils% 0.5 % (0-5); Hematocrit 29.5 % (40-54); Hemoglobin 9.4 g/dL (13.0-16.5); Lymphocyte # 1.64 X10^3/ul (0.83-4.51); Lymphocyte % 16.2 % (19-41); Mean Corp Hgb Conc 31.9 g/dL (32-36); Mean Corpuscular Hgb 29.2 pg (27.0-32.0); Mean Corpuscular Volume 91.6 fL (80-94); Mean Platelet Vol. 10.9 fl (6.2-12.0); Monocyte# 0.54 X10^3/uL; Monocyte% 5.3 % (0-10); NRBC Flagged by Analyzer 0.2 % (0-5); Neutrophil # 7.72 X10^3/uL (2.7-7.7); Neutrophil % 76.4 % (47-70); Platelet Count 359 K/mm3 (150-450); RBC Distribution Width CV 16.2 % (11.6-14.6); RBC Distribution Width SD 49.2 fl (35.1-43.9); Red Blood Count 3.22 M/mm3 (4.6-6.2); White Blood Count 10.1 K/mm3 (4.4-11.0)
[2022-06-14] MEDS: Ipratropium/Albuterol Sulfate 3 ML AMPUL.NEB INHALATION ×3 (07:08→15:12)
[2022-06-14] MEDS: Insulin Lispro 100 UNIT/ML INSULN.PEN SC (08:45)
[2022-06-14] MEDS: Insulin Lispro 100 UNIT/ML INSULN.PEN 15 UNIT SC ×2 (08:45→12:19)
[2022-06-14] MEDS: Ferrous Sulfate 325 MG Tablet PO ×2 (08:46→16:25)
[2022-06-14] MEDS: Carvedilol 25 MG Tablet PO ×2 (08:46→16:25)
[2022-06-14] MEDS: Amox/Clavulanate 875 MG Tablet PO ×2 (08:46→16:25)
[2022-06-14] MEDS: predniSONE 20 MG Tablet 40 MG PO (08:47)
[2022-06-14] MEDS: Loratadine 10 MG Tablet PO (08:47)
[2022-06-14] MEDS: Spironolactone 25 MG Tablet PO (08:47)
[2022-06-14] MEDS: Fluticasone 0.05% 1 SPRAY NASAL.SRY 2 SPRAY NASAL (08:48)
[2022-06-14] MEDS: Furosemide 40 MG Tablet PO (08:48)
[2022-06-14] MEDS: Isosorbide Mononitrate 30 MG Tablet PO (08:48)
[2022-06-14] MEDS: Enoxaparin 40 MG/0.4 ML Syringe SC (08:48)
[2022-06-14] MEDS: Senna/Docusate Sodium 1 Tablet 2 TABLET PO (08:49)
[2022-06-14] MEDS: Pantoprazole Sodium 40 MG Tablet PO (08:49)
[2022-06-14] MEDS: guaiFENesin 1,200 MG Tablet 1200 MG PO (08:49)
[2022-06-14] MEDS: Insulin Glargine-YFGN 100 UNIT/ML Pen 20 UNIT SC (08:50)
[2022-06-14] MEDS: Ascorbic Acid 500 MG Tablet PO (08:50)
[2022-06-14] MEDS: Cholecalciferol (VIT D3) 25 MCG TABLET (1,000 UNITS) 100 MCG PO (08:50)
--- NOTE | 2022-06-14 08:50 | CASEMGMT ---
Juju informed BRYAN that patient was denied by insurance for TCU. BRYAN called patient's , [place] and let her know this information. [place] asked what they do now. BRYAN explained that they can private pay at a retirement and home health. [place] asked about taking him to [facility]. BRYAN told her that physician can write an order for this. She is having surgery on her eyelids tomorrow so she was worried about him. Then she said his daughter can come stay with him. She asked that SW check in with her when she gets to the hospital. BRYAN told [place] to ask for SW at the nurses station when she gets here. Mireya Arora GROUP WORKER CHRISTY
--- NOTE | 2022-06-14 08:57 | PCM.PN.INT ---
Assessment & Plan Assessment/Plan (1) Acute respiratory failure with hypoxia: PLAN: Plan RECOMMENDATIONS: 1. Aggressive blood pressure control per hospitalist. 2. Continue antimicrobials to complete treatment course. 3. Continue scheduled bronchodilators and steroids. 4. Wean supplemental oxygen for saturations greater than 90%. 5. Continue diuretic therapy as tolerated by hemodynamics and renal function. 6. Perform walking oximetry study prior to consideration for discharge home. 7. Follow-up with Dr. Rivero in the pulmonary medicine clinic as scheduled on June 25. IMPRESSIONS: 1. 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 His presenting oxygen requirement is likely secondary to his elevated blood pressures and predisposition for flash pulmonary edema. The patient will remain on scheduled bronchodilators and steroids. Agree with continuing antimicrobials to complete treatment course. Continue aggressive blood pressure management with additional titration per hospitalist. Continue diuresis as tolerated by hemodynamics and renal function. 2. Bilateral pleural effusion secondary to decompensated heart failure with preserved ejection fraction Continue diuretic therapy as tolerated by hemodynamics and renal function. 3. History of obstructive sleep apnea The patient has a baseline requirement on BiPAP of 15/11 centimeters of water. Recommend continuing BiPAP nightly per home regimen. 4. Colonic mass Work-up is still underway.? 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 Some concern for possible secondary diagnosis such as carcinoid.? This may explain why patient continues to have elevated blood pressures.? There are discussions about possible resection.? 5. Coronary artery disease/chronic anemia/diabetes mellitus/hyperlipidemia Complicates care, management, recovery and prognosis. Continue home medications as indicated. This note was generated with [employer] dictation software. It may contain incorrect words, spelling, and punctuation that were not noted in checking the note before signing. Subjective Subjective The patient was seen and examined at the bedside this morning. Events from the last 24 hours have been reviewed. The patient is currently afebrile, hemodynamically stable and maintaining appropriate oxygen saturations on 2 L/min via nasal cannula. Blood pressures appear to be under adequate control. He is currently documented to be overall net -4.8 L for the hospitalization. Objective Data Objective Data The patient's most recent lab work, culture data and imaging studies have all been personally reviewed. Vital Signs: Vital Signs Temp Pulse Resp BP Pulse Ox O2 Del Method O2 Flow Rate 96 F L 62 18 160/71 H 99 Nasal Cannula 2.5 06/14/22 03:00 06/14/22 07:25 06/14/22 07:09 06/14/22 06:20 06/14/22 07:09 06/14/22 07:09 06/14/22 07:09 FiO2 28 06/11/22 23:24 Oxygen Flow Rate (L/min) 2.5 Oxygen Delivery Method Nasal Cannula Weight: 202 lb 6.15 oz Body Mass Index (BMI) 29.0 Intake & Output: Intake and Output for Last 24 Hours 06/12/22 06/13/22 06/14/22 23:59 23:59 23:59 Intake Total 480 / 480 700 / 700 Output Total 1800 / 2425 2875 / 3075 600 / 600 Balance -1320 / -1945 -2175 / -2375 -600 / -600 Lab / Micro Data Attestation: I reviewed the patient's lab results. Result Diagrams: 06/14/22 06:08 06/13/22 05:45 Labs: Laboratory Results - last 24 hr 06/13/22 11:14: POC Glucose 243 H 06/13/22 16:03: POC Glucose 164 H 06/13/22 21:54: POC Glucose 93 06/14/22 06:08: WBC 10.1, RBC 3.22 L, Hgb 9.4 L, Hct 29.5 L, MCV 91.6, MCH 29.2, MCHC 31.9 L, RDW Std Deviation 49.2 H, RDW Coeff of Justin 16.2 H, Plt Count 359, MPV 10.9, Immature Gran % (Auto) 1.500 H, Neut % (Auto) 76.4 H, Lymph % (Auto) 16.2 L, [place] % (Auto) 5.3, Eos % (Auto) 0.5, Baso % (Auto) 0.1, Absolute Neuts (auto) 7.7, Absolute Lymphs (auto) 1.64, Nucleated RBC % 0.2 Micro: Microbiology 06/08/22 22:00 Nasal Secretion SARS-CoV-2 Antigen (Rapid) - Final Rhythm Strip Rhythm Strip: Sinus Rhythm Rate: 65 Ectopy: None Physical Exam Const alert, oriented x3 and no apparent distress General Appearance: cooperative HEENT normocephalic, head/scalp atraumatic and moist oral mucous membranes Eyes PERRL, EOMs intact bilaterally and conjunctivae normal Neck supple General: trachea midline Chest inspection of chest normal Resp no use of accessory muscles Effort and Inspection: able to speak in complete sentences Auscultation: diminished lung sounds Cardio regular rate and regular rhythm GI normal to inspection, nondistended, normoactive bowel sounds Extremity no clubbing, cyanosis or edema Skin no rashes or lesions noted Neuro oriented x3, CN's II-XII intact bilaterally, moves all extremities and no focal motor deficits Psych cooperative and affect normal Charges/Coding Visit Charges Inpatient E&M: 60001 Subs Hosp L2
[2022-06-14 09:35] LABS: Bedside Glucose 233 mg/dL (74-106)
--- NOTE | 2022-06-14 10:02 | PCM.DC ---
Discharge Instructions Diet Discharge Diet: 2000 mg Sodium Diet Dressing / Incision Call your doctor if you observe: Fever of 101 or Higher, Coldness, Increased Pain, Numbness or Tingling, Change in Color, Inability to urinate, Inability to have a bowel movement, Shortness of breath, Dizziness, Fainting spells, Swelling in the ankles, Chest pain, Increased palpitations (irregular heartbeat), Calf discomfort and Uncontrolled pain Follow Up Care Test Results: Test results from this visit will be discussed in further detail at your follow-up appointment, if applicable. Discharge Plan Admission Admit Date/Time: 06/09/22 01:57 Attending Provider: Fernandez Santana Primary Care Provider: Emeka Horn Consulting Providers: Coy Conway ; Chito Rivero ; Luiz Painter ; Ephraim Walton ; Denise Cruz HOISTING ENGINEER [employer] ; Ben Rubi Discharge Orders/Prescriptions Prescriptions: New prednisone 20 mg Tablet 40 mg PO BREAKFAST 4 Days Qty: 8 0RF sennosides-docusate sodium [Stool Softener-Stimulant Laxat] 8.6-50 mg Tablet 2 tab PO BID Qty: 0 0RF spironolactone 25 mg Tablet 12.5 mg PO DAILY Qty: 30 0RF insulin lispro [Humalog KwikPen Insulin] 100 unit/mL Insulin Pen See Protocol subcut ACHS Qty: 0 0RF Protocol: 4. Sliding Scale Insulin High-Med Dosing Condition: 150-199 mg/dl = 2 units Condition: 200-259 mg/dl = 4 units Condition: 260-324 mg/dl = 6 units Condition: 325-374 mg/dl = 8 units Condition: 375-409 mg/dl = 10 units Condition: 410-449 mg/dl = 11 units Condition: Greater than 449 call physician Protocol Text: - Use for Total Daily Dose of Insulin 56-80 units - Patient who are insulin resistant or septic HIGH MEDIUM DOSING ALGORITHM Mucinex DM 30-600 mg Tablet Extended Release 12 Hr 1 tab PO BID Qty: 10 0RF insulin lispro [Humalog KwikPen Insulin] 100 unit/mL Insulin Pen 10 unit subcut TIDAC Qty: 15 0RF polyethylene glycol 3350 17 gram Powder In Packet 17 g PO DAILY Qty: 0 0RF Rx Instructions: OTC insulin glargine [Lantus Solostar U-100 Insulin] 100 unit/mL (3 mL) insulin pen 15 unit subcut DAILY Qty: 15 0RF Rx Instructions: Hold if glucose less than 130 mg/dl Continued ammonium lactate 12 % lotion 1 applic TOPICAL QD-BID PRN (Reason: dry skin ) triamcinolone acetonide [Nasacort] 55 mcg aerosol,spray 2 spray INTRANASAL DAILY (DME) handicap placcard Qty: 1 0RF Rx Instructions: Lifetime: debility coenzyme Q10 [Co Q-10] 100 mg capsule 100 mg PO DAILY ascorbate calcium (vitamin C) 500 mg tablet 500 mg PO DAILY cholecalciferol (vitamin D3) 100 mcg (4,000 unit) tablet 100 mcg (4,000 unit) tablet 100 mcg PO DAILY (DME) spacer See Rx Instructions .ROUTE .MEDSUPPLY Qty: 1 0RF Rx Instructions: As directed ipratropium-albuterol 0.5 mg-3 mg(2.5 mg base)/3 mL solution for nebulization 3 ml inhalation 4X/DAY PRN PRN (Reason: shortness of breath or wheezing) Qty: 90 6RF ipratropium bromide 42 mcg (0.06 %) spray,non-aerosol 2 spray INTRANASAL TID-QID PRN (Reason: allergy symptoms) Qty: 15 6RF Rx Instructions: nasal drip - administer into each nostril; wait 30 seconds between sprays loratadine 10 mg tablet 10 mg PO DAILY Label Comments: TAKE 1 TABLET EVERY DAY for allergies. pantoprazole 40 MG tablet 40 mg PO DAILY Label Comments: acid reflux aspirin 81 mg tablet,chewable 81 mg PO QHS Label Comments: antiplatelet montelukast 10 mg tablet 10 mg PO QHS budesonide-formoterol [Symbicort] 160-4.5 mcg/actuation HFA aerosol inhaler 2 puff INHALATION BID Rx Instructions: administer with spacer, rinse mouth after each use ropinirole 0.5 mg Tablet 0.5 mg PO TID isosorbide mononitrate 30 mg tablet extended release 24 hr 30 mg PO DAILY ferrous sulfate 325 mg (65 mg iron) tablet 325 mg PO BID Qty: 60 0RF amoxicillin-pot clavulanate 875-125 mg tablet 1 tab PO BID Qty: 5 0RF albuterol sulfate [Ventolin HFA] 90 mcg/actuation HFA aerosol inhaler 2 inh INHALATION Q4H PRN (Reason: shortness of breath or wheezing) Qty: 18 6RF atorvastatin 40 mg tablet 40 mg PO QODAY Qty: 45 3RF furosemide 40 mg tablet 40 mg PO DAILY Qty: 90 3RF hydralazine 100 mg tablet 100 mg PO TID Qty: 360 3RF carvedilol 25 mg tablet 25 mg PO BID Qty: 180 3RF Rx Instructions: must administer with a meal/food nitroglycerin [Nitrostat] 0.4 mg tablet, sublingual 0.4 mg SUBLINGUAL Q5-15M PRN (Reason: chest pain) Qty: 25 2RF Changed acetaminophen 500 mg Tablet 1,000 mg PO Q8H PRN (Reason: Pain Score 1-10) Qty: 0 0RF Rx Instructions: Not more than 3 g/day Held metformin 850 mg tablet 850 mg PO BID Hold Instructions: Hold for 7 days. Monitor kidney function and discontinue if creatinine clearance less than 30 mill per minute Referrals / Follow Up: Carolynn Whitman MD [Med Staff - Active Staff] - 06/20/22 1:15 pm Marguerite Jennings NP, HOISTING ENGINEER [employer]-C [Non-Staff -Ordering Privileges] - 06/19/22 10:30 am Chito Rivero MD [Med Staff - Active Staff] - (Follow Dr. Rivero on June 25, 2022) Disposition Disposition (needs filled in before D/C Order can be placed): Home Health Service
--- NOTE | 2022-06-14 10:03 | CASEMGMT ---
Addendum entered by Tessa Dalal 06/14/22 16:36: Per palliative liaison, pt's declines palliative until pt f/u with Dr. Rivero on 06/25/22. Dr Rivero updated at this time, voices understanding. Keith RN CM Addendum entered by Tessa Dalal 06/14/22 15:41: Pall[facility] to see pt/. [facility] Addendum entered by Tessa Dalal 06/14/22 15:10: This RN CM back to room to update on no need for home oxygen and states that [id number], who is a nurse, had mentioned about pt getting something for anxiety at home and states D[employer]ANNER recently told pt the same thing. Dr. Santana updated, voices understanding. Pt/ aware of discharge today after palliative meeting and per , pt scheduled to see new PCP, Dr. Whitman, and pt's PCP was updated in computer. Pt/ voice no further questions/concerns/needs. [facility] Addendum entered by Tessa Dalal 06/14/22 14:51: Per Damián MACIAS, pt does not qualify for home oxygen at discharge. Pt to meet with palliative liaison at 1530 and then to be discharged home with script for OP therapy. Keith RN CM Addendum entered by Tessa Dalal 06/14/22 11:06: This RN CM back to room to speak with pt/ regarding d/c plan. Pt/ adamantly decline HHC but are agreeable to script for OP therapy but pt/ do not want OP script faxed, they just want to take it home. This RN CM had referred pt for palliative on admission last week but declined. This RN CM did discuss palliative again with pt/ and states that she was just overwhelmed with calls the day they called her and they are willing to talk with liaison prior to d/c if they can come see pt. Call to Rsoa at palliative and she states they can have a liaison come out at [address] Santana aware. is concerned about palliative working with PCP as they are in the process of switching PCP's but pt is active with Dr. Rivero and palliative is aware they may need to work with him initially, voice understanding. Pt/ updated and provided with OP therapy script. CM to follow for home oxygen testing. Keith RN CM Original Note: This RN CM to room to discuss d/c plan and palliative again with pt. Pt aware of denial to SNF and asks 'what's the next option?' This RN CM discussed HHC but pt states will not make any decisions without . Pt then states 'But what if I can't breathe in the middle of the night though?' This RN CM advised pt that that is why Palliative was recommended for pt during last visit but declined to speak with them and this RN CM encouraged pt to speak with palliative. Pt states 'Can they come in an hour when my is here?' This RN CM explained that that is not really how it works but palliative [employer] PLANNER is here seeing another pt and this RN CM will check with her regarding her schedule. This RN CM to check back with pt/ once arrives. CM to follow for oxygen testing also. Keith MACIAS CM
--- NOTE | 2022-06-14 10:40 | CASEMGMT ---
SW went to patient's room as patient's is present. Patient and his both asked who talked to patient about home health. BRYAN said it was probably Tessa the RN MARIAM. BRYAN then attempted to talk with them further and they continue to ask about Tessa. BRYAN let them know BRYAN will notify Tessa. BRYAN notified COLLEEN Zarate. Mireya Arora DRUM STRAIGHTENER CHRISTY
[2022-06-14 12:46] LABS: Bedside Glucose 90 mg/dL (74-106)
[2022-06-14] MEDS: Acetaminophen 500 MG Tablet 1000 MG PO (13:58)
--- NOTE | 2022-06-14 14:47 | DS.PCM_ITS ---
Providers Date of Admission: 06/09/22 Date of Discharge: 06/14/22 Primary Care Physician: Dr. Emeka Horn MD Consultations 06/09/22 11:05 Consult: Plasterer Foreman / Pulmonary Medicine Routine Consulting Provider: Pulmonary Medicine randy Norton Reason for Consult: resp failure EMERGENT Consult: No MD Notified: Yes Date Notified: 06/09/22 Time Notified: 11:05 Method of Notification: Text Reason For Visit: COPD EXACERBATION Diagnosis Discharge Diagnosis (1) Acute respiratory failure with hypoxia: Status: Acute Code(s): J96.01 - Acute respiratory failure with hypoxia Medications at Discharge Home Medications pantoprazole 40 mg tablet,delayed release 40 mg PO DAILY reflux 03/28/14 ammonium lactate 12 % lotion 1 applic topical QD-BID PRN dry skin 02/06/18 triamcinolone acetonide 55 mcg nasal spray aerosol (Nasacort) 2 spray intranasal DAILY allergies 09/04/18 handicap placcard #1 ea 09/28/19 ascorbate calcium (vitamin C) 500 mg tablet 500 mg PO DAILY Bone strength 05/03/20 coenzyme Q10 100 mg capsule (Co Q-10) 100 mg PO DAILY 05/03/20 cholecalciferol (vitamin D3) 100 mcg (4,000 unit) tablet 100 mcg PO DAILY 11/03/20 spacer #1 ea 01/12/21 albuterol sulfate 90 mcg/actuation aerosol inhaler (Ventolin HFA) 2 inh inhalation Q4H PRN shortness of breath or wheezing #18 grams 11/27/21 atorvastatin 40 mg tablet 40 mg PO QODAY cholesterol #45 tabs 02/20/22 ipratropium 0.5 mg-albuterol 3 mg (2.5 mg base)/3 mL nebulization soln 3 ml inhalation 4X/DAY PRN PRN shortness of breath or wheezing #90 mL 02/21/22 ipratropium bromide 42 mcg (0.06 %) nasal spray 2 spray intranasal TID-QID PRN allergy symptoms #15 mL 02/21/22 budesonide-formoterol HFA 160 mcg-4.5 mcg/actuation aerosol inhaler (Symbicort) 2 puff inhalation BID Respitory 03/09/22 montelukast 10 mg tablet 10 mg PO QHS Respiratory 03/09/22 ropinirole 0.5 mg tablet 0.5 mg PO TID 04/22/22 carvedilol 25 mg tablet 25 mg PO BID #180 tabs 05/22/22 furosemide 40 mg tablet 40 mg PO DAILY #90 tabs 05/22/22 hydralazine 100 mg tablet 100 mg PO TID Disreguard previous RX: dose changed #360 tabs 05/22/22 isosorbide mononitrate 30 mg tablet,extended release 24 hr 30 mg PO DAILY 05/22/22 aspirin 81 mg chewable tablet 81 mg PO QHS heart health 05/30/22 loratadine 10 mg tablet 10 mg PO DAILY 05/30/22 metformin 850 mg tablet 850 mg PO BID Blood Glucose 05/30/22 ferrous sulfate 325 mg (65 mg iron) tablet 325 mg PO BID #60 tabs 06/06/22 nitroglycerin 0.4 mg sublingual tablet (Nitrostat) 0.4 mg sublingual Q5-15M PRN chest pain #25 tabs 06/08/22 acetaminophen 500 mg tablet 1,000 mg PO Q8H PRN Pain Score 1-10 #0 tabs 06/14/22 amoxicillin 875 mg-potassium clavulanate 125 mg tablet 1 tab PO BID #5 tabs 06/14/22 dextromethorphan-guaifenesin 30 mg-600 mg tablet extended [id number] hr (Mucinex DM) 1 tab PO BID #10 tabs 06/14/22 insulin glargine 100 unit/mL (3 mL) subcutaneous pen (Lantus Solostar U-100 Insulin) 15 unit (0.15 mL) subcut DAILY #15 mL 06/14/22 insulin lispro 100 unit/mL subcutaneous pen (Humalog KwikPen (U-100) Insulin) 10 unit (0.1 mL) subcut TIDAC #15 mL 06/14/22 insulin lispro 100 unit/mL subcutaneous pen (Humalog KwikPen (U-100) Insulin) See Protocol subcut ACHS #0 mL 06/14/22 polyethylene glycol 3350 17 gram oral powder packet 17 g PO DAILY #0 ea 06/14/22 prednisone 20 mg tablet 40 mg PO BREAKFAST 4 days #8 tabs 06/14/22 sennosides 8.6 mg-docusate sodium 50 mg tablet (Stool Softener-Stimulant Laxative) 2 tab PO BID #0 tabs 06/14/22 spironolactone 25 mg tablet 12.5 mg PO DAILY #30 tabs 06/14/22 Hospital Course Summary of Care Provided Hospital Course: This 86-year-old question intermittent was admitted with worsening shortness of breath a day before through ED. Patient also has mild increased cough with thick yellowish sputum, mild wheezing and weakness 1. COPD exacerbation: Chest CT scan was initially reviewed and shows bilateral pleural effusion, diffuse interstitial disease and a small area of consolidation in the right upper lobe right upper lobe pneumonia. Consistent with Patient has been on 2 L of oxygen and ABG 7.42/35/96 on 30% FiO2 BiPAP which is equal to about 2.5 L of oxygen through nasal cannula.? Patient has been on 2 L of oxygen throughout hospital course.? I do not think patient meets the criteria for acute hypoxic respiratory failure therefore ruled out.? Plasterer Foreman also agree that patient is hypoxic but not acute hypoxic respiratory failure.? Patient is not using accessory muscles or conversational dyspnea or accessory muscles at rest but he gets short of breath on walking to bathroom or short distance. His hypoxia might be due to hypertensive urgency. ? Patient was managed with bronchodilators and methylprednisolone.? Incentive spirometry and Pep. wanted the patient to go to rehab in TCU but pre-[facility]ERT declined by from insurance company.? Patient has multiple recurrent admission for shortness of breath, pleural effusion and pneumonia. Hemoglobin is stable about 8.5 g% daily. Patient on Augmentin and prednisone burst therapy. Prescription sent to patient's pharmacy to complete a total duration of 7 days. (2) acute on chronic (HFpEF) heart failure with preserved ejection fraction: Acute exacerbation supported by bilateral pleural effusion, shortness of breath mild hypoxia. PLAN: EF 60% from 2D echocardiogram on May 15, 2022. IV furosemide changed to 40 mg daily from-20 IV twice daily given his worsening kidney function. Continue with carvedilol and isosorbide and hydralazine. Patient discharged on furosemide 40 mg daily. Spironolactone 12.5 mg daily, added, The prescription sent to patient's pharmacy (3) Hypertensive urgency: : Continue isosorbide 30, hydralazine 100 milligrams 3 times daily and carvedilol 25 twice daily. Blood pressure was controlle. Allergy to dihydropyridine calcium channel blockers. No SILVANO inhibitor's nor ARB's given his worsened kidney function at this time.On clonidine (4) Diabetes mellitus:Metformin held given the CTA. Estimated creatinine clearance is about 40-year-old per minute and it is contraindicated below 30 mill per minute. I prefer to hold it and repeat BMP in 1 week. Patient blood sugar was controlled, hyperglycemia. Patient given a prescription for Humalog insulin and Lantus insulin with Accu-Chek insulin to titrate the dose in consultation with PCP (5) Pneumonia: QUALIFIERS:?- Pneumonia due to presumed Streptococcus pneumoniae right upper lobe: Prescription given for Augmentin. Constipation: Patient not mobile therefore Dulcolax suppository ordered.? If no further bowel movement, patient can have Dulcolax 1 dose of 10 mg oral.? Patient already on MiraLAX and senna S. Patient moved his bowel. DVT prophylaxis: Subcutaneous Lovenox ordered. Discharge medication reconciliation done. Discharge follow-up instructions completed. Discharge process discussed with the patient and all questions were answered to patient's satisfaction. Discharged home with home health care Total time spent, exact 35 minutes on discharge meds reconciliation, examination , coordination of care with nurses and ancillary staff, review of imaging and blood test and discussion with the patient on follow-up instructions. Physical Exam Narrative Seen and examined. Patient is not hypoxic or tachypneic. Pulse ox 96% - 99% on room air. Patient has mild chronic cough, dry. General: Alert, Oriented x3, Cooperative, overweight BMI 29.0 KG per square meter HEENT: Atraumatic, PERRLA, EOMI, Normocephalic Oral: No Gingival or Mucosal Lesions/ Ulcerations. Deep oropharyngeal structures not clearly visualized Neck: Supple, No JVD, Negative Carotid Bruits Lungs: Air entry diminished in bilateral lung bases. Fine bilateral expiratory rhonchi. Cardiovascular: Sinus rhythm, Normal S1, Normal S2, No murmurs Abdomen: Bowel Sounds Present, Soft, Non Tender, Non-Distended : No renal angle tenderness. No suprapubic tenderness. Extremities: Mild bilateral chronic pitting edema, Capillary Refill Less than 3 Seconds Skin: No rashes, No breakdown Musculoskeletal: No Tenderness to Palpation of Joints or Extremities. ROM restricted. Neurological: Cranial nerves II-XII grossly intact, DTR 2+/4, muscle strength 4+/5 at major joints. Psych/Mental Status: Flat affect. Weight / BMI Weight Weight: 202 lb 6.15 oz Body Mass Index (BMI) 29.0 ABG / Lab / Microbiology Data Result Diagrams: 06/14/22 06:08 06/13/22 05:45 Laboratory: Laboratory Results - last 24 hr 06/13/22 16:03: POC Glucose 164 H 06/13/22 21:54: POC Glucose 93 06/14/22 06:08: WBC 10.1, RBC 3.22 L, Hgb 9.4 L, Hct 29.5 L, MCV 91.6, MCH 29.2, MCHC 31.9 L, RDW Std Deviation 49.2 H, RDW Coeff of Justin 16.2 H, Plt Count 359, MPV 10.9, Immature Gran % (Auto) 1.500 H, Neut % (Auto) 76.4 H, Lymph % (Auto) 16.2 L, [place] % (Auto) 5.3, Eos % (Auto) 0.5, Baso % (Auto) 0.1, Absolute Neuts (auto) 7.7, Absolute Lymphs (auto) 1.64, Nucleated RBC % 0.2 06/14/22 08:30: POC Glucose 233 H 06/14/22 12:15: POC Glucose 90 Microbiology: Microbiology 06/08/22 22:00 Nasal Secretion SARS-CoV-2 Antigen (Rapid) - Final D/C Instructions Discharge Diet: 2000 mg Sodium Diet Call your doctor if you observe: Fever of 101 or Higher, Coldness, Increased Pain, Numbness or Tingling, Change in Color, Inability to urinate, Inability to have a bowel movement, Shortness of breath, Dizziness, Fainting spells, Swelling in the ankles, Chest pain, Increased palpitations (irregular heartbeat), Calf discomfort and Uncontrolled pain Meaningful Use Info Meaningful Use Diagnoses (Choose all that apply): None applicable Discharge Plan Admission Admit Date/Time: 06/09/22 01:57 Attending Provider: Fernandez Santana Primary Care Provider: Carolynn Whitman Consulting Providers: Coy Conway ; Chito Rivero ; Luiz Painter ; Ephraim Walton ; Denise Cruz AEROPHYSICS ENGINEER ; Ben Rubi Discharge Orders/Prescriptions Prescriptions: New prednisone 20 mg Tablet 40 mg PO BREAKFAST 4 Days Qty: 8 0RF sennosides-docusate sodium [Stool Softener-Stimulant Laxat] 8.6-50 mg Tablet 2 tab PO BID Qty: 0 0RF spironolactone 25 mg Tablet 12.5 mg PO DAILY Qty: 30 0RF insulin lispro [Humalog KwikPen Insulin] 100 unit/mL Insulin Pen See Protocol subcut ACHS Qty: 0 0RF Protocol: 4. Sliding Scale Insulin High-Med Dosing Condition: 150-199 mg/dl = 2 units Condition: 200-259 mg/dl = 4 units Condition: 260-324 mg/dl = 6 units Condition: 325-374 mg/dl = 8 units Condition: 375-409 mg/dl = 10 units Condition: 410-449 mg/dl = 11 units Condition: Greater than 449 call physician Protocol Text: - Use for Total Daily Dose of Insulin 56-80 units - Patient who are insulin resistant or septic HIGH MEDIUM DOSING ALGORITHM Mucinex DM 30-600 mg Tablet Extended Release 12 Hr 1 tab PO BID Qty: 10 0RF insulin lispro [Humalog KwikPen Insulin] 100 unit/mL Insulin Pen 10 unit subcut TIDAC Qty: 15 0RF polyethylene glycol 3350 17 gram Powder In Packet 17 g PO DAILY Qty: 0 0RF Rx Instructions: OTC insulin glargine [Lantus Solostar U-100 Insulin] 100 unit/mL (3 mL) insulin pen 15 unit subcut DAILY Qty: 15 0RF Rx Instructions: Hold if glucose less than 130 mg/dl Continued ammonium lactate 12 % lotion 1 applic TOPICAL QD-BID PRN (Reason: dry skin ) triamcinolone acetonide [Nasacort] 55 mcg aerosol,spray 2 spray INTRANASAL DAILY (DME) handicap placcard Qty: 1 0RF Rx Instructions: Lifetime: debility coenzyme Q10 [Co Q-10] 100 mg capsule 100 mg PO DAILY ascorbate calcium (vitamin C) 500 mg tablet 500 mg PO DAILY cholecalciferol (vitamin D3) 100 mcg (4,000 unit) tablet 100 mcg (4,000 unit) tablet 100 mcg PO DAILY (DME) spacer See Rx Instructions .ROUTE .MEDSUPPLY Qty: 1 0RF Rx Instructions: As directed ipratropium-albuterol 0.5 mg-3 mg(2.5 mg base)/3 mL solution for nebulization 3 ml inhalation 4X/DAY PRN PRN (Reason: shortness of breath or wheezing) Qty: 90 6RF ipratropium bromide 42 mcg (0.06 %) spray,non-aerosol 2 spray INTRANASAL TID-QID PRN (Reason: allergy symptoms) Qty: 15 6RF Rx Instructions: nasal drip - administer into each nostril; wait 30 seconds between sprays loratadine 10 mg tablet 10 mg PO DAILY Label Comments: TAKE 1 TABLET EVERY DAY for allergies. pantoprazole 40 MG tablet 40 mg PO DAILY Label Comments: acid reflux aspirin 81 mg tablet,chewable 81 mg PO QHS Label Comments: antiplatelet montelukast 10 mg tablet 10 mg PO QHS budesonide-formoterol [Symbicort] 160-4.5 mcg/actuation HFA aerosol inhaler 2 puff INHALATION BID Rx Instructions: administer with spacer, rinse mouth after each use ropinirole 0.5 mg Tablet 0.5 mg PO TID isosorbide mononitrate 30 mg tablet extended release 24 hr 30 mg PO DAILY ferrous sulfate 325 mg (65 mg iron) tablet 325 mg PO BID Qty: 60 0RF amoxicillin-pot clavulanate 875-125 mg tablet 1 tab PO BID Qty: 5 0RF albuterol sulfate [Ventolin HFA] 90 mcg/actuation HFA aerosol inhaler 2 inh INHALATION Q4H PRN (Reason: shortness of breath or wheezing) Qty: 18 6RF atorvastatin 40 mg tablet 40 mg PO QODAY Qty: 45 3RF furosemide 40 mg tablet 40 mg PO DAILY Qty: 90 3RF hydralazine 100 mg tablet 100 mg PO TID Qty: 360 3RF carvedilol 25 mg tablet 25 mg PO BID Qty: 180 3RF Rx Instructions: must administer with a meal/food nitroglycerin [Nitrostat] 0.4 mg tablet, sublingual 0.4 mg SUBLINGUAL Q5-15M PRN (Reason: chest pain) Qty: 25 2RF Changed acetaminophen 500 mg Tablet 1,000 mg PO Q8H PRN (Reason: Pain Score 1-10) Qty: 0 0RF Rx Instructions: Not more than 3 g/day Held metformin 850 mg tablet 850 mg PO BID Hold Instructions: Resume on 06/08/22. Referrals / Follow Up: Carolynn Whitman MD [Primary Care Provider] - 06/20/22 1:15 pm Chito Rivero MD [Med Staff - Active Staff] - (Follow Dr. Rivero on June 25, 2022) Marguerite Jennings NP, AEROPHYSICS ENGINEER-C [Non-Staff -Ordering Privileges] - 06/19/22 10:30 am Disposition Disposition (needs filled in before D/C Order can be placed): Home Health Service Charges/Coding Visit Charges Inpatient E&M: 79800 Disch Hosp
[2022-06-14 15:21] LABS: Bedside Glucose 73 mg/dL (74-106)
--- NOTE | 2022-06-15 09:06 | CASEMGMT ---
This COLLEEN BECERRA received message from PCU charge that pt's lispro insulin needs a prior auth. [facility] and they state that they provided pt Novolog as alternative to Humalog already yesterday. Keith MACIAS CM
== END 2022-06-14 16:58 | disposition home health service (06) | DRG 190 ==
LOC: ED 23:48 → MS3 06-09 02:27 → PCU 06-09 03:09
PROVIDERS: Admitting Provider Hospitalist; Emergency Provider Emergency Medicine; PCP Internal Medicine; Visit Provider Internal Medicine
DX: J44.1 Chronic obstructive pulmonary disease with (acute) exacerbation (principal); J13 Pneumonia due to Streptococcus pneumoniae; I50.33 Acute on chronic diastolic (congestive) heart failure; I13.0 Hypertensive heart and chronic kidney disease with heart failure and stage 1 through stage 4 chronic kidney disease, or unspecified chronic kidney disease; E11.22 Type 2 diabetes mellitus with diabetic chronic kidney disease; E11.65 Type 2 diabetes mellitus with hyperglycemia; D64.9 Anemia, unspecified; J44.0 Chronic obstructive pulmonary disease with (acute) lower respiratory infection; N18.32 Chronic kidney disease, stage 3b; E78.00 Pure hypercholesterolemia, unspecified; G47.33 Obstructive sleep apnea (adult) (pediatric); I25.10 Atherosclerotic heart disease of native coronary artery without angina pectoris; I16.0 Hypertensive urgency; I25.2 Old myocardial infarction; K59.00 Constipation, unspecified; R09.02 Hypoxemia; Z20.822 Contact with and (suspected) exposure to COVID-19; Z79.82 Long term (current) use of aspirin; Z79.51 Long term (current) use of inhaled steroids; Z79.899 Other long term (current) drug therapy; Z87.891 Personal history of nicotine dependence; Z95.5 Presence of coronary angioplasty implant and graft
CPT/HCPCS: 36415; 36600; 71045; 71275; 80048; 82803; 82962; 83036; 85025; 85379; 87811; 93005; 94002; 94003; 94640; 94660; 94760; 94762; 97110; 97162; 97166; 97530; 97535; 99251; 99285; Q9967; A4216; G0463; J1940

== ENCOUNTER → 2022-06-19 | Outpatient (CLI) | payer MEDICARE, SELFPAY ==
[2022-06-19 12:00] LABS: Absolute Lymphocyte Count 0.97 X10^3/uL (0.83-4.51); Absolute Neutrophil Count 11.9 X10^3/uL (2.0-7.7); Basophil# 0.01 X10^3/uL; Basophil% 0.1 % (0-1); Eosinophil# 0.01 X10^3/uL; Eosinophils% 0.1 % (0-5); Hemoglobin 9.9 g/dL (13.0-16.5); Lymphocyte # 0.97 X10^3/ul (0.83-4.51); Lymphocyte % 7.1 % (19-41); Mean Corpuscular Hgb 31.6 pg (27.0-32.0); Mean Corpuscular Volume 95.8 fL (80-94); Mean Platelet Vol. 10.7 fl (6.2-12.0); Monocyte# 0.69 X10^3/uL; NRBC Flagged by Analyzer 0 % (0-5); Neutrophil # 11.89 X10^3/uL (2.7-7.7); Neutrophil % 86.7 % (47-70); POSITIVE MORPHOLOGY YES; Platelet Count 315 K/mm3 (150-450); RBC Distribution Width CV 20.8 % (11.6-14.6); RBC Distribution Width SD 59.5 fl (35.1-43.9); Red Blood Count 3.13 M/mm3 (4.6-6.2); White Blood Count 13.7 K/mm3 (4.4-11.0)
[2022-06-19 12:02] LABS: Differential Indicated SCAN CRITERIA MET
[2022-06-19 12:20] LABS: Anion Gap 6 (5-15); BUN 35 mg/dL (7-18); BUN/Creat Ratio 26.7 RATIO (10-20); Calcium,Total 9.7 mg/dL (8.5-10.1); Chloride 109 mmol/L (98-107); Creatinine, Serum 1.31 mg/dL (0.70-1.30); EST Glomerular Filtration Rate 55 mL/min (>60); Est Glom Filt Rate - Afr Amer 67 mL/min (>60); Glucose 172 mg/dL (74-106); Potassium 4.1 mmol/L (3.5-5.1); Sodium Level 143 mmol/L (136-145)
[2022-06-19 12:22] LABS: BNP,B-Type NATRIURETIC PEPTIDE 885.4 pg/mL (0-100)
[2022-06-19 13:32] LABS: Anisocytosis 1+; Platelet Estimate ADEQUATE (ADEQ)
== END | disposition home or self-care (01) ==
LOC: LAB 11:30
PROVIDERS: PCP Internal Medicine; Referring Provider Nurse Practitioner Gerontology; Visit Provider Nurse Practitioner Gerontology
DX: I50.30 Unspecified diastolic (congestive) heart failure (principal); R06.00 Dyspnea, unspecified; R53.83 Other fatigue
CPT/HCPCS: 36415; 80048; 83735; 83880; 85025

== ENCOUNTER → 2022-07-04 | Outpatient (CLI) | payer MEDICARE, SELFPAY ==
[2022-07-04 17:46] LABS: Anion Gap 11 (5-15); BUN 30 mg/dL (7-18); BUN/Creat Ratio 20.1 RATIO (10-20); Calcium,Total 9.3 mg/dL (8.5-10.1); Chloride 103 mmol/L (98-107); Creatinine, Serum 1.49 mg/dL (0.70-1.30); EST Glomerular Filtration Rate 48 mL/min (>60); Est Glom Filt Rate - Afr Amer 58 mL/min (>60); Glucose 102 mg/dL (74-106); Potassium 4.2 mmol/L (3.5-5.1); Sodium Level 139 mmol/L (136-145)
== END | disposition home or self-care (01) ==
PROVIDERS: PCP Internal Medicine; Referring Provider Nurse Practitioner Gerontology; Visit Provider Nurse Practitioner Gerontology
DX: R06.00 Dyspnea, unspecified (principal)
CPT/HCPCS: 36415; 80048

== ENCOUNTER → 2022-08-03 | Outpatient (CLI) | payer MEDICARE, SELFPAY ==
[2022-08-03 16:32] LABS: Vitamin D,25 Hydroxy 83.7 ng/mL
[2022-08-03 16:44] LABS: Absolute Lymphocyte Count 2.56 X10^3/uL (0.83-4.51); Absolute Neutrophil Count 5.6 X10^3/uL (2.0-7.7); Basophil# 0.05 X10^3/uL; Basophil% 0.5 % (0-1); Eosinophils% 2.2 % (0-5); Hematocrit 36.7 % (40-54); Hemoglobin 11.6 g/dL (13.0-16.5); Lymphocyte # 2.56 X10^3/ul (0.83-4.51); Lymphocyte % 27.7 % (19-41); Mean Corp Hgb Conc 31.6 g/dL (32-36); Mean Corpuscular Hgb 28.4 pg (27.0-32.0); Mean Platelet Vol. 11.4 fl (6.2-12.0); Monocyte% 8.7 % (0-10); NRBC Flagged by Analyzer 0 % (0-5); Neutrophil # 5.58 X10^3/uL (2.7-7.7); Neutrophil % 60.4 % (47-70); Platelet Count 223 K/mm3 (150-450); RBC Distribution Width CV 16.8 % (11.6-14.6); RBC Distribution Width SD 55.3 fl (35.1-43.9); Red Blood Count 4.08 M/mm3 (4.6-6.2); White Blood Count 9.2 K/mm3 (4.4-11.0)
== END | disposition home or self-care (01) ==
LOC: LAB 14:30
PROVIDERS: PCP Internal Medicine; Visit Provider Nurse Practitioner Gerontology
DX: R53.83 Other fatigue (principal)
CPT/HCPCS: 36415; 82306; 85025

== ENCOUNTER → 2022-12-10 | Outpatient (CLI) | payer MEDICARE, SELFPAY ==
--- NOTE | 2022-12-10 15:11 | MRI_ITS ---
STUDY: MRI LUMBAR SPINE WITHOUT CONTRAST REASON FOR EXAM: Male, 87 years old. Pain X 6 MOS-1 YR NO INJURY RADIATES KRISTA LEGS WHEN AMBULATING TECHNIQUE: Standardized fat and water weighted pulse sequences were obtained in the sagittal and axial planes. COMPARISON: CT abdomen and pelvis with contrast 06/06/2022. FINDINGS: T11-T12: (Sagittal only). Normal endplates. Schmorl''s node in the posterior T11 inferior endplate. Mild disc space height narrowing. No ventral extradural defect. Normal central canal and bilateral intervertebral neural foramina. T12-L1: (Sagittal only). Normal endplates. Normal disc height, hydration and morphology. Normal central canal and bilateral intervertebral neural foramina. Normal lumbar lordosis. Mild levoscoliosis of the lumbar spine. Normal conus medullaris that terminates at the lower T12 vertebral body level. L1-2: Moderate right-sided disc space height narrowing with right lateral marginal spurs. Mild bilateral degenerative facet arthropathy. Normal central canal and bilateral lateral recesses. Normal bilateral intervertebral neural foramina. L2-3: Mild Modic type II degenerative vertebral marrow fat infiltration underneath the vertebral endplates. Pronounced disc space height narrowing. Mild ventral extradural defect due to posterior marginal spur. This is unchanged. No significant facet arthropathy. Normal central canal and bilateral lateral recesses. Normal bilateral intervertebral neural foramina. Bilateral renal cysts are visible at this level. L3-4: Pronounced Modic type I degenerative vertebral marrow edema underneath the vertebral endplates. Pronounced disc space height narrowing. Mild ventral extradural defect due to posterior marginal spur. Mild asymmetric degenerative facet arthropathy. Mild dorsal epidural lipomatosis. Normal central canal and bilateral lateral recesses. Mild stenosis of the bilateral intervertebral neural foramina. L4-5: Prominent Schmorl''s node in the L5 superior endplate. Normal L4 inferior endplate. Moderate disc space height narrowing. Mild bilateral degenerative facet arthropathy. Normal central canal and bilateral lateral recesses. Mild stenosis of the left intervertebral neural foramen. Normal right intervertebral neural foramen. This level is unchanged. L5-S1: Normal endplates. Pronounced disc space height narrowing. Mild bilateral degenerative facet arthropathy. Normal central canal and bilateral lateral recesses. Normal bilateral intervertebral neural foramina. Normal visualized sacral ala. Normal visualized paraspinous soft tissue structures. OPINION: 1. Pronounced L3-L4 intervertebral osteochondritis (Modic type I) and mild stenosis of the bilateral intervertebral neural foramina. 2. No MRI evidence of lumbar extruded disc fragment, disc protrusion or significant spinal stenosis. 3. No significant interval change when compared to CT abdomen and pelvis of 06/06/2022. Electronically Signed: Luis Fernando Mustafa MD at 12:13 EST , MRI/Spine Lumbar (Routine) IMPRESSION: undefined
== END | disposition home or self-care (01) ==
PROVIDERS: PCP Internal Medicine; Referring Provider Orthopaedic Surgery; Visit Provider Orthopaedic Surgery
DX: M51.26 Other intervertebral disc displacement, lumbar region (principal); R27.0 Ataxia, unspecified
CPT/HCPCS: 72148

== ENCOUNTER → 2023-05-06 | Outpatient (CLI) | payer MEDICARE, SELFPAY ==
[2023-05-06 15:13] LABS: Absolute Lymphocyte Count 2.05 X10^3/uL (0.83-4.51); Basophil# 0.04 X10^3/uL; Basophil% 0.5 % (0-1); Eosinophil# 0.27 X10^3/uL; Eosinophils% 3.7 % (0-5); Hematocrit 29.1 % (40-54); Hemoglobin 10.8 g/dL (13.0-16.5); Lymphocyte # 2.05 X10^3/ul (0.83-4.51); Lymphocyte % 28.2 % (19-41); Mean Corp Hgb Conc 37.1 g/dL (32-36); Mean Corpuscular Hgb 35.6 pg (27.0-32.0); Mean Platelet Vol. 10.1 fl (6.2-12.0); Monocyte# 0.85 X10^3/uL; Monocyte% 11.7 % (0-10); NRBC Flagged by Analyzer 0 % (0-5); Neutrophil # 4.03 X10^3/uL (2.7-7.7); Neutrophil % 55.4 % (47-70); Platelet Count 311 K/mm3 (150-450); RBC Distribution Width CV 13.6 % (11.6-14.6); RBC Distribution Width SD 45.8 fl (35.1-43.9); Red Blood Count 3.03 M/mm3 (4.6-6.2); White Blood Count 7.3 K/mm3 (4.4-11.0)
[2023-05-06 15:51] LABS: AST(SGOT) 17 U/L (15-37); Alanine Aminotransfer ALT/SGPT 19 U/L (16-61); Albumin, Serum 3.5 g/dL (3.2-5.0); Alkaline Phosphatase 73 U/L (45-117); Anion Gap 3 (5-15); BUN 43 mg/dL (7-18); BUN/Creat Ratio 18.4 RATIO (10-20); Bilirubin, Direct 0.07 mg/dL (0.00-0.30); Calcium,Total 9.4 mg/dL (8.5-10.1); Chloride 102 mmol/L (98-107); Cholesterol 122 mg/dL (200); Creatinine, Serum 2.34 mg/dL (0.70-1.30); EST Glomerular Filtration Rate 28 mL/min (>60); Est Glom Filt Rate - Afr Amer 34 mL/min (>60); Glucose 110 mg/dL (74-106); High Density Lipoprotein 31 mg/dL; Potassium 5.2 mmol/L (3.5-5.1); Protein, Total 7.5 g/dL (6.4-8.2); Sodium Level 133 mmol/L (136-145); Thyroid Stim Hormone (TSH) 2.63 uIU/mL (0.358-3.74); Triglycerides 166 mg/dL; Very Low Density Lipoprotein 33 mg/dL (5-40)
== END | disposition home or self-care (01) ==
LOC: LAB 13:47
PROVIDERS: PCP Internal Medicine; Referring Provider Nurse Practitioner Gerontology; Visit Provider Nurse Practitioner Gerontology
DX: E78.5 Hyperlipidemia, unspecified (principal); I50.32 Chronic diastolic (congestive) heart failure; R06.00 Dyspnea, unspecified; R53.83 Other fatigue
CPT/HCPCS: 36415; 80048; 80061; 80076; 83880; 84443; 85025

== ENCOUNTER → 2023-05-08 | Outpatient (CLI) | payer MEDICARE, SELFPAY ==
--- NOTE | 2023-05-08 13:51 | ECHOD_ITS ---
Reason For Study: DYSPNEA Procedure This was a 2D Doppler, Color Flow transthoracic echocardiogram. Exam performed in department. Left Ventricle Normal LV size. Left ventricular systolic function is normal. The estimated ejection fraction is 65 %. No regional wall motion abnormalities noted. Right Ventricle Normal RV size. Normal systolic function. Atria The left atrium is mildly enlarged. Normal right atrium. Mitral Valve There is mild mitral annular calcification. Mild (1+) eccentric mitral valve insufficiency. Aortic Valve Trisinus/trileaflet aortic valve. Mild focal aortic valve calcification. Pulmonic Valve Normal pulmonic valve. Great Vessels Calcified aortic root. The pulmonary artery is normal size. Normal inferior vena cava. Pericardium/Pleural No pericardial effusion. MMode/2D Measurements & Calculations LVIDd: 5.8 cm IVSd: 0.90 cm LVOT diam: 2.2 cm LVIDs: 3.5 cm LVPWd: 1.2 cm LVOT area: 3.6 cm2 FS: 40.9 % Ao root diam: 3.4 cm LAV(MOD-bp): 107.9 ml LVAd ap4: 33.5 cm2 LAV(MOD-bp) Indexed: 53.4 ml/m2 LVLd ap4: 8.2 cm LAV(MOD-sp2): 134.8 ml EDV(MOD-sp4): 111.1 ml LAV(MOD-sp4): 76.6 ml EDV(sp4-el): 116.1 ml LVAs ap4: 18.2 cm2 LVLs ap4: 6.8 cm ESV(MOD-sp4): 41.9 ml ESV(sp4-el): 41.5 ml EF(MOD-sp4): 62.2 % EF(sp4-el): 64.3 % SV(MOD-sp4): 69.1 ml SV(sp4-el): 74.6 ml LA A4 area: 23.3 cm2 LA dimension(2D): 5.3 cm RA A4 area: 19.0 cm2 TAPSE: 1.9 cm Time Measurements MV dec time: 0.19 sec Doppler Measurements & Calculations MV E max juaquin: 90.7 cm/sec Lat Peak E' Juaquin: 5.4 cm/sec Med Peak E' Juaquin: 5.6 cm/sec MV A max juaquin: 110.9 cm/sec E/E' lat: 16.7 E/E' med: 16.1 MV E/A: 0.82 MV V2 max: 121.9 cm/sec Ao V2 max: 157.7 cm/sec MV max P.0 mmHg MV dec slope: 484.3 cm/sec2 Ao max P.0 mmHg MV V2 mean: 63.8 cm/sec Ao V2 mean: 111.0 cm/sec MV mean P.9 mmHg Ao mean P.5 mmHg MV V2 VTI: 49.8 cm Ao V2 VTI: 45.5 cm AV (velocity ratio): 0.64 MVA(VTI): 2.1 cm2 FRANCIS(I,D): 2.3 cm2 FRANCIS(V,D): 2.1 cm2 LV V1 max: 90.6 cm/sec MR max juaquin: 589.7 cm/sec SV(LVOT): 105.5 ml LV V1 max P.3 mmHg MR max P.1 mmHg LV V1 mean P.1 mmHg LV V1 mean: 69.2 cm/sec LV V1 VTI: 29.0 cm PA V2 max: 102.8 cm/sec PA V2 mean: 60.7 cm/sec ECHO/Echo Complete Interpretation Summary Left ventricular systolic function is normal. The estimated ejection fraction is 65 %. There is mild mitral annular calcification. Mild (1+) eccentric mitral valve insufficiency. Ordering Physician: Marguerite Jennings Referring Physician: Marguerite Jennings Performed By: Carrie Azul RCS
== END | disposition home or self-care (01) ==
LOC: CVS 13:50
PROVIDERS: PCP Internal Medicine; Referring Provider Nurse Practitioner Gerontology; Visit Provider Nurse Practitioner Gerontology
DX: R06.02 Shortness of breath (principal); I50.30 Unspecified diastolic (congestive) heart failure
CPT/HCPCS: 93306

== ENCOUNTER → 2023-05-16 | Outpatient (CLI) | payer MEDICARE, SELFPAY ==
[2023-05-16 16:29] LABS: Absolute Lymphocyte Count 1.94 X10^3/uL (0.83-4.51); Absolute Neutrophil Count 3.7 X10^3/uL (2.0-7.7); Basophil# 0.05 X10^3/uL; Basophil% 0.7 % (0-1); Eosinophil# 0.27 X10^3/uL; Hematocrit 26.3 % (40-54); Hemoglobin 9.8 g/dL (13.0-16.5); Lymphocyte # 1.94 X10^3/ul (0.83-4.51); Lymphocyte % 28.8 % (19-41); Mean Corp Hgb Conc 37.3 g/dL (32-36); Mean Corpuscular Hgb 36.2 pg (27.0-32.0); Mean Platelet Vol. 10.1 fl (6.2-12.0); Monocyte# 0.76 X10^3/uL; Monocyte% 11.3 % (0-10); NRBC Flagged by Analyzer 0 % (0-5); Neutrophil # 3.68 X10^3/uL (2.7-7.7); Neutrophil % 54.8 % (47-70); Platelet Count 285 K/mm3 (150-450); RBC Distribution Width CV 14.1 % (11.6-14.6); RBC Distribution Width SD 46.7 fl (35.1-43.9); Red Blood Count 2.71 M/mm3 (4.6-6.2); White Blood Count 6.7 K/mm3 (4.4-11.0)
[2023-05-16 16:43] LABS: Anion Gap 8 (5-15); BUN 38 mg/dL (7-18); BUN/Creat Ratio 19.7 RATIO (10-20); Chloride 103 mmol/L (98-107); Creatinine, Serum 1.93 mg/dL (0.70-1.30); EST Glomerular Filtration Rate 35 mL/min (>60); Est Glom Filt Rate - Afr Amer 43 mL/min (>60); Glucose 102 mg/dL (74-106); Sodium Level 136 mmol/L (136-145)
[2023-05-16 16:56] LABS: Microalbumin,Random Urine 44.9 mg/L (NO RANGE EST.); Microalbumin:Creatinine Ratio 111.7 mg/g CRE (<30 mg/g CRE)
== END | disposition home or self-care (01) ==
LOC: BIMLAB 14:54
PROVIDERS: Nurse Practitioner Gerontology; PCP Internal Medicine; Referring Provider Internal Medicine; Visit Provider Internal Medicine
DX: I11.0 Hypertensive heart disease with heart failure (principal); I50.30 Unspecified diastolic (congestive) heart failure
CPT/HCPCS: 36415; 80048; 82043; 82570; 85025

== ENCOUNTER → 2023-05-29 | Outpatient (CLI) | payer MEDICARE, SELFPAY ==
[2023-05-29 15:43] LABS: Absolute Lymphocyte Count 2.11 X10^3/uL (0.83-4.51); Absolute Neutrophil Count 3.5 X10^3/uL (2.0-7.7); Basophil# 0.04 X10^3/uL; Basophil% 0.6 % (0-1); Eosinophil# 0.33 X10^3/uL; Eosinophils% 4.8 % (0-5); Hematocrit 32.4 % (40-54); Lymphocyte # 2.11 X10^3/ul (0.83-4.51); Lymphocyte % 30.5 % (19-41); Mean Corp Hgb Conc 30.9 g/dL (32-36); Mean Corpuscular Hgb 28.7 pg (27.0-32.0); Mean Corpuscular Volume 93.1 fL (80-94); Mean Platelet Vol. 10.3 fl (6.2-12.0); Monocyte# 0.87 X10^3/uL; Monocyte% 12.6 % (0-10); NRBC Flagged by Analyzer 0 % (0-5); Neutrophil # 3.53 X10^3/uL (2.7-7.7); Neutrophil % 51.1 % (47-70); Platelet Count 308 K/mm3 (150-450); RBC Distribution Width CV 13.3 % (11.6-14.6); RBC Distribution Width SD 45.3 fl (35.1-43.9); Red Blood Count 3.48 M/mm3 (4.6-6.2); White Blood Count 6.9 K/mm3 (4.4-11.0)
[2023-05-29 16:01] LABS: AST(SGOT) 18 U/L (15-37); Alanine Aminotransfer ALT/SGPT 22 U/L (16-61); Albumin, Serum 3.6 g/dL (3.2-5.0); Alkaline Phosphatase 75 U/L (45-117); Anion Gap 9 (5-15); BUN 31 mg/dL (7-18); BUN/Creat Ratio 15.6 RATIO (10-20); Calcium,Total 9.4 mg/dL (8.5-10.1); Chloride 107 mmol/L (98-107); Creatinine, Serum 1.99 mg/dL (0.70-1.30); EST Glomerular Filtration Rate 34 mL/min (>60); Est Glom Filt Rate - Afr Amer 41 mL/min (>60); Globulin 3.6 g/dL (2.2-4.2); Glucose 149 mg/dL (74-106); Potassium 4.5 mmol/L (3.5-5.1); Protein, Total 7.2 g/dL (6.4-8.2); Sodium Level 139 mmol/L (136-145)
== END | disposition home or self-care (01) ==
LOC: BIMLAB 13:55
PROVIDERS: PCP Internal Medicine; Visit Provider Internal Medicine
DX: D64.9 Anemia, unspecified (principal)
CPT/HCPCS: 36415; 80053; 85025

== ENCOUNTER → 2023-07-18 | Outpatient (CLI) | payer MEDICARE, SELFPAY ==
[2023-07-18 16:00] LABS: ALB/GLOB Ratio 0.9 RATIO (0.9-2.4); AST(SGOT) 14 U/L (15-37); Alanine Aminotransfer ALT/SGPT 20 U/L (16-61); Albumin, Serum 3.5 g/dL (3.2-5.0); Alkaline Phosphatase 73 U/L (45-117); Anion Gap 6 (5-15); BUN 28 mg/dL (7-18); BUN/Creat Ratio 12.7 RATIO (10-20); Calcium,Total 9.2 mg/dL (8.5-10.1); Chloride 103 mmol/L (98-107); Creatinine, Serum 2.21 mg/dL (0.70-1.30); EST Glomerular Filtration Rate 30 mL/min (>60); Est Glom Filt Rate - Afr Amer 37 mL/min (>60); Glucose 176 mg/dL (74-106); Potassium 4.2 mmol/L (3.5-5.1); Protein, Total 7.5 g/dL (6.4-8.2); Sodium Level 137 mmol/L (136-145)
[2023-07-18 16:11] LABS: Absolute Lymphocyte Count 2.15 X10^3/uL (0.83-4.51); Absolute Neutrophil Count 4.5 X10^3/uL (2.0-7.7); Basophil# 0.05 X10^3/uL; Basophil% 0.6 % (0-1); Eosinophil# 0.33 X10^3/uL; Eosinophils% 4.1 % (0-5); Hematocrit 32.5 % (40-54); Hemoglobin 9.5 g/dL (13.0-16.5); Lymphocyte # 2.15 X10^3/ul (0.83-4.51); Lymphocyte % 26.5 % (19-41); Mean Corp Hgb Conc 29.2 g/dL (32-36); Mean Corpuscular Hgb 27.2 pg (27.0-32.0); Mean Corpuscular Volume 93.1 fL (80-94); Mean Platelet Vol. 10.7 fl (6.2-12.0); Monocyte# 1.09 X10^3/uL; Monocyte% 13.5 % (0-10); NRBC Flagged by Analyzer 0 % (0-5); Neutrophil # 4.45 X10^3/uL (2.7-7.7); Neutrophil % 54.9 % (47-70); Platelet Count 327 K/mm3 (150-450); RBC Distribution Width SD 44.2 fl (35.1-43.9); Red Blood Count 3.49 M/mm3 (4.6-6.2); White Blood Count 8.1 K/mm3 (4.4-11.0)
== END | disposition home or self-care (01) ==
LOC: BIMLAB 12:28
PROVIDERS: PCP Internal Medicine; Referring Provider Internal Medicine; Visit Provider Internal Medicine
DX: I11.0 Hypertensive heart disease with heart failure (principal); I50.32 Chronic diastolic (congestive) heart failure; E11.9 Type 2 diabetes mellitus without complications
CPT/HCPCS: 36415; 80053; 85025

== ENCOUNTER → 2023-08-02 | Outpatient (CLI) | payer MEDICARE, SELFPAY ==
--- NOTE | 2023-08-02 12:40 | US_ITS ---
ACR Level 3 findings have been noted. An addendum which confirms receipt of the report will follow. EXAM: US RETROPERITONEAL LIMITED, RENAL CLINICAL INDICATION: CKD4 TECHNIQUE: Limited grayscale and color Doppler sonographic evaluation of the retroperitoneum was performed. COMPARISON: CT June 06, 2022. Numerous renal cysts, at least 8 on the left and at least 2 on the right. History of aneurysm repair 4 cm transverse diameter of infrarenal aorta. FINDINGS: RIGHT KIDNEY: 11.9 cm x 5.1 cm x 6.2 cm. No hydronephrosis. No shadowing calculus. Multiple cysts, the largest 5.0 cm x 5 cm x 4.8 cm. Simple. Second largest 1.6 cm x 1.6 cm x 1.6 cm, also simple. No perinephric collection is demonstrated. LEFT KIDNEY: 10.7 cm x 6.4 cm x 5.7 cm. No hydronephrosis. No shadowing calculus. Multiple cysts, including 2.3 cm x 1.3 cm x 1.2 cm mildly bilobed cyst in the mid kidney, 3.8 cm x 3.6 cm x 2.5 cm minimally complex cystic lesion with lobulated contour and faint incomplete eccentric internal septations, 2.7 cm x 2 cm x 2.4 cm simple-appearing cyst. No perinephric collection is demonstrated. BLADDER: Moderately distended urinary bladder. Neither ureteral jet is seen in the bladder on color Doppler. Anterior wall is 3 mm. Maximum bladder volume 8.8 cm. US/Kidney and Bladder IMPRESSION: No hydronephrosis. No perinephric fluid collections. Faint incomplete eccentric internal septations within one at the left renal cysts with mildly lobulated contour, it appears posterior-medial in location and corresponds to what appears to be 3.4 cm x 2.6 cm x 3.[address] Slightly larger, it now measures 3.8 cm x 3.6 cm x 2.5 cm sonographically. Question of slight peripheral enhancement and slightly thickened medial wall on review of the prior CT. RECOMMENDATIONS: UnenhancedEnhanced MRI or CT with renal protocol is recommended for comparison of the mildly sonographically complex and mildly larger left renal lesion at the posterior mid kidney. Nonstandard communication requested, level 3, please confirm that the report with recommendation are received. Thank you. Electronically Signed: Tayla Downs MD at 10:04 EDT ,
== END | disposition home or self-care (01) ==
PROVIDERS: PCP Internal Medicine; Referring Provider Internal Medicine Nephrology; Visit Provider Internal Medicine Nephrology
DX: N18.4 Chronic kidney disease, stage 4 (severe) (principal)
CPT/HCPCS: 76770

== ENCOUNTER → 2023-08-26 | Outpatient (CLI) | payer MEDICARE, SELFPAY ==
[2023-08-26 18:26] LABS: Color, Urine Yellow (Yellow); Glucose, Dipstick 1000 mg/dl (Normal); Ketone-Dipstick Negative (Negative); Leukocyte Esterase-Dipstick 500 /ul (Negative); Nitrite-Dipstick Negative (Negative); Occult Blood-Urine Negative /ul (Negative); Protein-Dipstick 15 mg/dl (Negative); Urine Bilirubin Dipstick Negative (Negative); Urine Clarity Clear (Clear); Urine Urobilinogen Normal (Normal)
[2023-08-26 18:29] LABS: Protein, Urine (Random) 14.7 mg/dL (<11.9); Protein:Creat Ratio 380 mg/g CRE (0-200)
[2023-08-26 19:05] LABS: Anion Gap 9 (5-15); BUN 37 mg/dL (7-18); BUN/Creat Ratio 16.1 RATIO (10-20); Calcium,Total 9.1 mg/dL (8.5-10.1); Chloride 105 mmol/L (98-107); EST Glomerular Filtration Rate 29 mL/min (>60); Est Glom Filt Rate - Afr Amer 35 mL/min (>60); Glucose 131 mg/dL (74-106); Sodium Level 140 mmol/L (136-145)
[2023-08-28 14:09] LABS: PROEL- A/G Ratio 1.1 (0.7-1.7); PROEL- Albumin 3.7 g/dL (2.9-4.4); PROEL- Alpha-1 Globulin 0.2 g/dL (0.0-0.4); PROEL- Alpha-2 Globulin 0.9 g/dL (0.4-1.0); PROEL- Beta Globulin 0.8 g/dL (0.7-1.3); PROEL- Gamma Globulin 1.3 g/dL (0.4-1.8); PROEL- Globulin, Total 3.3 g/dL (2.2-3.9); PROEL-M-Spike 0.6 g/dL (Not Observed)
== END | disposition home or self-care (01) ==
LOC: MTLAB 14:36
PROVIDERS: PCP Internal Medicine; Referring Provider Internal Medicine Nephrology; Visit Provider Internal Medicine Nephrology
DX: N18.4 Chronic kidney disease, stage 4 (severe) (principal)
CPT/HCPCS: 36415; 80048; 81002; 82570; 84156; 84165

== ENCOUNTER → 2023-08-27 | Outpatient (CLI) | payer MEDICARE, SELFPAY ==
--- NOTE | 2023-08-27 17:10 | MRI_ITS ---
MRI Abdomen w/ and w/out contrast 08/27/2023 5:37 PM COMPARISON: None CLINICAL HISTORY: RENAL MASS TECHNIQUE: Multiplanar T1 and T2 weighted, diffusion and dynamic post-gadolinium images were obtained through the abdomen before and after administration of 17 cc of IV Clariscan. FINDINGS: Liver: Unremarkable Gallbladder: Unremarkable Pancreas: Unremarkable Spleen: Unremarkable Adrenal Glands: Unremarkable Kidneys: Innumerable T2 hyperintense cysts throughout both kidneys. None of these demonstrate enhancement. A few of them are heterogeneously T1 hyperintense, representing hemorrhagic content. GI Tract: Unremarkable Lymphadenopathy: Absent Vascular: Stable infrarenal abdominal aortic aneurysm. Ascites: Absent Bones: No suspicious lesions MRI/MRI Abd WITH and W/O Contrast IMPRESSION: Bilateral simple renal cysts. No suspicious enhancing lesion. Electronically Signed: Gustavo Stanley MD at 23:32 EST ,
== END | disposition home or self-care (01) ==
LOC: MRI 16:45
PROVIDERS: PCP Internal Medicine; Referring Provider Internal Medicine Nephrology; Visit Provider Internal Medicine Nephrology
DX: N28.89 Other specified disorders of kidney and ureter (principal)
CPT/HCPCS: 74183; A9575

== ENCOUNTER 2023-09-12 01:16 | Observation (INO) | payer MEDICARE, SELFPAY ==
[2023-09-12] VITALS (16 sets, daily range): BP systolic 136–196; BP diastolic 55–80; PULSE 50–67; RESP 12–23; TEMP 35.7–36.3; O2SAT 93–98; BMI 31.2; BMI 31.1
--- NOTE | 2023-09-12 01:33 | CT_ITS ---
INDICATION: Neuro deficit, acute, stroke suspected EXAMINATION: CT BRAIN - CT Head Stroke Protocol W/O Contrast Injection TECHNIQUE: Multiple axial images were obtained of the head without intravenous contrast. A radiation dose optimization technique was used for this scan. IV Contrast dosage and agent: None. COMPARISON: None FINDINGS: BRAIN PARENCHYMA: No intra- or extra-axial hemorrhage. No evidence of acute infarct. No intracranial mass or mass effect. Mild periventricular and subcortical white matter hypodense chronic small vessel white matter ischemic change. There is preservation of the mandel/white matter interface. Posterior fossa structures are unremarkable. Carotid and vertebral atherosclerosis. CSF SPACES: Mild global cerebral volume loss. No hydrocephalus. Basal cisterns are patent. CALVARIUM, SKULL BASE, PARANASAL SINUSES AND MASTOID AIR CELLS: No acute osseous finding. Mild scattered paransal sinus mucoperisteal thickening. Mastoid air cells are clear. ORBITS: Both globes, extraocular muscles, optic nerves and retrobulbar fat appear unremarkable. ASPECTS Score for Acute Strokes: 10 CT/STROKE Brain/Head without Cont IMPRESSION: No CT evidence of acute intracranial hemorrhage or injury. Mild senescent changes with atherosclerosis. N.B. : The above Results were Read Back by Lex Ybarra MD to Rosa Collins MD, and understanding confirmed on 09/12/2023 01:52:43 (ET). Electronically Signed: Lex Ybarra MD at 1:52 EST ,
--- NOTE | 2023-09-12 01:35 | CT_ITS ---
INDICATION: vertigo EXAMINATION: CTA CAROTIDS AND BRAIN - CTA Head and Neck W/ Contrast Injection (and W/O Contrast Images if performed) TECHNIQUE: Routine CTA of the head and neck was performed with post processing of the angiographic images for volumetric reconstructions. In addition, images were obtained of the [place] of [place]. Nascet criteria using the distal ICAs for comparison were used for evaluation of stenoses. 3D reconstructions were reviewed. A radiation dose optimization technique was used for this scan. IV Contrast dosage and agent: 100 mL [id number] COMPARISON: None. FINDINGS: --NECK: AORTIC ARCH AND BRANCHES: Normal anatomy, patent. RIGHT CCA: No occlusion, significant stenosis or dissection. RIGHT ICA: Atherosclerosis at the carotid bifurcation. No occlusion, significant stenosis or dissection. LEFT CCA: No occlusion, significant stenosis or dissection. LEFT ICA: Atherosclerosis at the carotid bifurcation. No occlusion, significant stenosis or dissection. RIGHT VERTEBRAL ARTERY: No occlusion, significant stenosis or dissection. LEFT VERTEBRAL ARTERY: 50% stenosis of the left vertebral origin. No occlusion, significant stenosis or dissection. NECK SOFT TISSUES: Small bilateral thyroid nodules, largest 9 mm right thyroid. LUNG APICES: Diffuse centrilobular emphysematous change.. BONES: Unremarkable. Mild scattered pansinus mucoperiosteal thickening. --HEAD: --Anterior circulation: ICAs: Bilateral cavernous carotid atherosclerosis. No significant stenosis at the intracranial/visualized segments. ACAs: No significant stenosis at the visualized segments. ACOM: Present. MCAs: No significant stenosis at the visualized segments. --Posterior circulation: PCOMs: Intact on the left. Not seen on the right. precision aircraft structure assembler: No significant stenosis at the visualized segments. BASILAR ARTERY: No significant stenosis. VERTEBRAL ARTERIES: Right intracranial vertebral artery is smooth, diffusely diminutive in caliber. Left vertebral artery is widely patent with scattered mild atherosclerosis. No focal stenosis at the intradural/visualized segments. No evidence of intracranial aneurysm or vascular malformation. CT/CTA Head AND Neck W/ Contrast IMPRESSION: Scattered atherosclerosis with 50% stenosis of left vertebral origin. Remainder of the left vertebral artery origin is widely patent with congenital left vertebral dominance. 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 Multiple thyroid nodules are likely benign given small size relative to age. Ultrasound could further evaluate as clinically indicated. Mild scattered sinus disease. Electronically Signed: Lex Ybarra MD at 2:35 EST ,
[2023-09-12 01:47] LABS: Absolute Lymphocyte Count 1.78 X10^3/uL (0.83-4.51); Absolute Neutrophil Count 3.7 X10^3/uL (2.0-7.7); Basophil# 0.05 X10^3/uL; Basophil% 0.7 % (0-1); Eosinophil# 0.33 X10^3/uL; Eosinophils% 4.7 % (0-5); Hematocrit 28.8 % (40-54); Hemoglobin 8.8 g/dL (13.0-16.5); Lymphocyte # 1.78 X10^3/ul (0.83-4.51); Lymphocyte % 25.5 % (19-41); Mean Corp Hgb Conc 30.6 g/dL (32-36); Mean Corpuscular Hgb 26.7 pg (27.0-32.0); Mean Corpuscular Volume 87.5 fL (80-94); Mean Platelet Vol. 10.3 fl (6.2-12.0); Monocyte# 1.04 X10^3/uL; Monocyte% 14.9 % (0-10); NRBC Flagged by Analyzer 0 % (0-5); Neutrophil # 3.74 X10^3/uL (2.7-7.7); Neutrophil % 53.8 % (47-70); Platelet Count 313 K/mm3 (150-450); RBC Distribution Width CV 14.1 % (11.6-14.6); RBC Distribution Width SD 45.1 fl (35.1-43.9); Red Blood Count 3.29 M/mm3 (4.6-6.2)
[2023-09-12 01:57] LABS: International Normalized Ratio 1.1; Partial Thromboplast Time 31.3 Seconds (24.1-36.2); Prothrombin Time (Protime)PT. 14.3 SECONDS (11.7-14.9)
[2023-09-12 02:05] LABS: Anion Gap 7 (5-15); BUN 39 mg/dL (7-18); BUN/Creat Ratio 17.8 RATIO (10-20); Calcium,Total 9.3 mg/dL (8.5-10.1); Chloride 105 mmol/L (98-107); Creatinine, Serum 2.19 mg/dL (0.70-1.30); EST Glomerular Filtration Rate 31 mL/min (>60); Est Glom Filt Rate - Afr Amer 37 mL/min (>60); Estimated Creatinine Clearance 23.42 ml/min; Glucose 135 mg/dL (74-106); Potassium 3.9 mmol/L (3.5-5.1); Sodium Level 137 mmol/L (136-145); Troponin-I HS 19 pg/mL (3.0-78.0)
--- NOTE | 2023-09-12 02:10 | RAD_ITS ---
INDICATION: Neuro deficit, acute, stroke suspected EXAMINATION/TECHNIQUE: X-RAY - XR Chest 1 View COMPARISON: June 08, 2022., CT chest June 09, 2022 FINDINGS: LINES/DEVICES: None. LUNGS: Lungs symmetrically hyperexpanded with coarsened interstitium. Hazy opacification in the right lateral midlung with decreased opacification in the mid to lower lungs compared to prior exam. Interval decrease in interstitial thickening. No gross effusion. No pneumothorax. MEDIASTINUM AND CARDIOVASCULAR STRUCTURES: Cardiac silhouette not enlarged. Coronary atherosclerosis noted. BONES AND SOFT TISSUES: Right clavicle internal fixation hardware is unchanged.. RAD/Chest 1 View IMPRESSION: Findings compatible with chronic obstructive pulmonary disease. Hazy opacification right lateral midlung, possibly possibly representing residual peripheral nodularity, with otherwise improved aeration in the mid and lower lungs. CT follow-up is recommended when clinically able for comparison with June 09, 2022 Electronically Signed: Lex Ybarra MD at 2:42 EST ,
--- NOTE | 2023-09-12 02:27 | EDS_ITS ---
HPI History of Present Illness Chief Complaint: Dizziness Informant: patient Onset/Context/Timing Onset: Today Context: Sudden Onset Narrative Narrative: Patient presents with sudden onset of dizziness with nausea. Patient states he had taken a shower and gone back to the family room. He was then walking to the kitchen to get something to eat when he suddenly got dizzy. He describes it as both a lightheaded and spinning sensation. He states he had to ramirez back to his chair before he fell. He states he was looking at a pattern in the carpet that was moving when he was not moving his head. He had nausea with some dry heaves. He reports a mild headache. Patient has a history of vascular disease. Last Saturday he had a procedure at [facility] trying to open some the blockages in his groin that were unsuccessful. [facility] Medical History (HFpEF) heart failure with preserved ejection fraction Abdominal aortic aneurysm (AAA) Acute cystitis with hematuria Allergic rhinitis Ambulates with cane Anemia Arthritis Asthma Asthma-COPD overlap syndrome Atherosclerotic heart disease of tribe coronary artery without angina pectoris Back pain BiPAP (biphasic positive airway pressure) dependence Cancer Carotid bruit Chest pain Chronic constipation Chronic cough Colon polyp Colonic mass COPD (chronic obstructive pulmonary disease) Coronary artery disease Daytime hypersomnia DDD (degenerative disc disease), lumbar Debility DM2 (diabetes mellitus, type 2) ALMEIDA (dyspnea on exertion) Dyslipidemia Easy bruising Essential (primary) hypertension Fatigue Former smoker Frequent hospital admissions Gastroesophageal reflux disease History of edema History of heart attack History of hiatal hernia History of irregular heartbeat History of pain when walking History of renal disease History of steroid therapy History of stress test Hoarseness Hyperlipidemia Injury of back Kidney stone Leg cramps Lightheadedness Obstructive sleep apnea MARIXA (obstructive sleep apnea) Overweight Patellar bursitis of right knee Peripheral vascular disease of extremity with claudication Pleural effusion Pneumonia Pre-syncope PVD (peripheral vascular disease) Rectus sheath hematoma Recurrent urinary tract infection Restless legs syndrome Right leg swelling Seasonal allergies Shortness of breath on exertion Sleep apnea Somatic dysfunction of pelvic region Walker as ambulation aid Wears dentures Wears glasses Wears hearing aid Home Medications ammonium lactate 12 % lotion 1 applic topical QD-BID PRN dry skin 02/06/18 [History Last Taken Unknown] handicap placcard #1 ea 09/28/19 [Rx Last Taken Unknown] ascorbate calcium (vitamin C) 500 mg tablet 500 mg PO DAILY Bone strength 05/03/20 [History Last Taken 03/09/22] coenzyme Q10 100 mg capsule (Co Q-10) 100 mg PO DAILY 05/03/20 [History Last Taken Unknown] cholecalciferol (vitamin D3) 100 mcg (4,000 unit) tablet 100 mcg PO DAILY 11/03/20 [History Last Taken Unknown] spacer #1 ea 01/12/21 [Rx Last Taken Unknown] albuterol sulfate 90 mcg/actuation aerosol inhaler (Ventolin HFA) 2 inh inhalation Q4H PRN shortness of breath or wheezing #18 grams 11/27/21 [Rx Last Taken Unknown] aspirin 81 mg chewable tablet 81 mg PO QHS heart health 05/30/22 [History Last Taken Unknown] nitroglycerin 0.4 mg sublingual tablet (Nitrostat) 0.4 mg sublingual Q5-15M PRN chest pain #25 tabs 06/08/22 [Rx Last Taken Unknown] ipratropium 0.5 mg-albuterol 3 mg (2.5 mg base)/3 mL nebulization soln 3 ml inhalation 4X/DAY PRN PRN shortness of breath or wheezing #90 mL 08/03/22 [Rx Last Taken Unknown] ropinirole 1 mg tablet 1 mg PO QHS #60 tabs 10/18/22 [Rx Last Taken Unknown] triamcinolone acetonide 55 mcg nasal spray aerosol (Nasacort) 2 spray intranasal DAILY PRN allergies 11/06/22 [History Last Taken Unknown] ipratropium bromide 42 mcg (0.06 %) nasal spray 2 spray intranasal TID-QID PRN allergy symptoms #15 mL 11/09/22 [Rx Last Taken Unknown] albuterol sulfate 2.5 mg/3 mL (0.083 %) solution for nebulization 2.5 mg (3 mL) inhalation Q4H PRN Sob &/Or Wheezing #180 mL 11/29/22 [Rx Last Taken Unknown] ipratropium bromide 0.02 % solution for inhalation 2.5 ml inhalation Q6H PRN shortness of breath or wheezing #150 mL 11/29/22 [Rx Last Taken Unknown] furosemide 40 mg tablet 40 mg PO .COMPLEX #180 tabs 04/05/23 [Rx Last Taken Unknown] montelukast 10 mg tablet 10 mg PO QHS Respiratory #90 tabs 04/24/23 [Rx Last Taken Unknown] docusate sodium 100 mg capsule 100 mg PO BID 05/06/23 [History Last Taken Unknown] ibuprofen 200 mg tablet 200 mg PO Q6H PRN fever or pain 05/06/23 [History Last Taken Unknown] blood sugar diagnostic (FSI Ultra Test strips) #180 ea 05/16/23 [Rx Last Taken Unknown] pantoprazole 40 mg tablet,delayed release 40 mg PO DAILY reflux #90 tabs 05/16/23 [Rx Last Taken Unknown] atorvastatin 40 mg tablet 40 mg PO QODAY cholesterol #45 tabs 05/23/23 [Rx Last Taken Unknown] carvedilol 25 mg tablet 25 mg PO BID #180 tabs 05/23/23 [Rx Last Taken Unknown] hydralazine 100 mg tablet 100 mg PO TID Disreguard previous RX: dose changed #360 tabs 06/07/23 [Rx Last Taken Unknown] dapagliflozin propanediol 10 mg tablet (Farxiga) 10 mg PO DAILY #90 tabs 07/09/23 [Rx Last Taken Unknown] insulin glargine 100 unit/mL (3 mL) subcutaneous pen (Lantus Solostar U-100 Insulin) 15 unit (0.15 mL) subcut QAM #15 mL 07/18/23 [Rx Last Taken Unknown] lancets #180 ea 07/18/23 [Rx Last Taken Unknown] isosorbide mononitrate 30 mg tablet,extended release 24 hr 30 mg PO DAILY #90 tabs 07/24/23 [Rx Last Taken Unknown] amlodipine 10 mg tablet 10 mg PO DAILY This is a dose increase #90 tabs 08/28/23 [Rx Last Taken Unknown] loratadine 10 mg tablet 10 mg PO DAILY #90 tabs 09/04/23 [Rx Last Taken Unknown] spironolactone 25 mg tablet 25 mg PO DAILY 09/12/23 [History Last Taken Unknown] Allergy/AdvReac Type Severity Reaction Status Date / Time cilostazol [From Pletal] Allergy Unknown Verified 09/12/23 01:25 felodipine Allergy Hives Verified 09/12/23 01:25 levofloxacin Allergy Hives Verified 09/12/23 01:25 Sulfa (Sulfonamide Allergy Unknown Verified 09/12/23 01:25 Antibiotics) Family History Father Diabetes Cancer Prostate cancer Mother Dementia Brother Parkinsons Brother Cancer Surgical History H/O aortic aneurysm repair (11/1998) History of coronary artery stent placement (02/17/08) History of endarterectomy (07/2018) History of hernia repair History of left heart catheterization (03/2014) History of surgical procedure History of transurethral resection of prostate History of vascular surgery (08/2018) Social History household members: spouse 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 status: retired current occupation: [employer] Smoking Status: Former smoker quit date: 08/07/08 pack-years: 2 Tobacco: How many years used: 52 Electronic Cigarette Use: not used how long ago did patient quit smokin years ago alcohol intake: current alcohol intake frequency: holidays/special occasions only details: hx of alcohol abuse substance use type: does not use caffeine: No what type of physical activity do you participate in: other details: Nustep frequency: 5-6 times per week duration: 15-30 minutes/day seatbelt use: always do you feel safe at home: Yes ROS ROS ED Constitutional Constitutional ED: Denies fever(s) Eyes Eyes: Denies change in vision or discharge from eye(s) ENT ENT ED: Denies discharge from eye(s), rhinorrhea or sore throat Cardiovascular Cardiovascular: Denies chest pain or palpitations Respiratory/Chest Respiratory/Chest: Denies cough or dyspnea Gastrointestinal Gastrointestinal: Reports nausea and vomiting; Denies abdominal pain or diarrhea Genitourinary Genitourinary ED: Denies dysuria Musculoskeletal Musculoskeletal: Denies back pain or extremity pain Integumentary Denies Abrasions or rash Neurologic Neurologic: Reports headache(s) and weakness Psychiatric Psychiatric: Denies anxiety or depression Allergic/Immunologic Allergic/Immunologic ED: Denies lip swelling or urticaria EXAM Physical Exam Const Vital Signs: 09/12/23 01:18 09/12/23 01:33 09/12/23 01:30 Temperature 96.2 F L Temperature Source Temporal Pulse Rate 54 L 50 L Respiratory Rate 16 14 Blood Pressure 196/68 H 168/67 H Blood Pressure Mean 110 100 Pulse Ox 96 96 Oxygen Delivery Method Room Air Room Air Room Air 09/12/23 01:47 09/12/23 01:33 09/12/23 01:45 Temperature Temperature Source Pulse Rate 59 L 62 63 Respiratory Rate 16 12 12 Blood Pressure 178/67 H 172/68 H 171/80 H Blood Pressure Mean 104 102 110 Pulse Ox 94 96 95 Oxygen Delivery Method Room Air Room Air Room Air 09/12/23 02:00 09/12/23 02:15 09/12/23 02:30 Temperature Temperature Source Pulse Rate 63 60 57 L Respiratory Rate 22 H 17 17 Blood Pressure 166/64 H 179/61 H 181/68 H Blood Pressure Mean 98 100 105 Pulse Ox 95 95 94 Oxygen Delivery Method Room Air Room Air Room Air Positive well nourished and well developed General Appearance ED: well developed HEENT Reports moist mucous membranes Eyes EOMs intact bilaterally Chest Wall inspection of chest normal and palpation of chest normal Resp normal respiratory effort and clear to auscultation bilaterally Cardio regular rate and regular rhythm GI non-tender Palpation: soft Extremity normal to inspection Neuro Neuro Narrative: NIH equals 1 at the time of my exam, one-point for slight difficulty with finger-nose in the left arm only. Psych mental status grossly normal Skin no rashes or lesions noted MDM MDM MDM Narrative Medical decision making narrative: Prehospital EKG is appeared to show atrial fibrillation which patient I do not see has a history of. He also has a history of vascular disease with recent intervention. Patient was walking when he had sudden onset of dizziness and my initial concern was for central vertigo secondary to a stroke. Patient has no nystagmus on exam. In light of this stroke alert was initiated. History & Record Review Discussion w/independent historian: EMS personnel, Patient and Significant other Additional record(s) reviewed:: Prior ED visit and Prior labs Lab Data Attestation: I reviewed the patient's lab results. Labs: Laboratory Results - last 24 hr 09/12/23 01:40 WBC 7.0 RBC 3.29 L Hgb 8.8 L Hct 28.8 L MCV 87.5 MCH 26.7 L MCHC 30.6 L RDW Std Deviation 45.1 H RDW Coeff of Justin 14.1 Plt Count 313 MPV 10.3 Immature Gran % (Auto) 0.400 Neut % (Auto) 53.8 Lymph % (Auto) 25.5 [place] % (Auto) 14.9 H Eos % (Auto) 4.7 Baso % (Auto) 0.7 Absolute Neuts (auto) 3.7 Absolute Lymphs (auto) 1.78 Nucleated RBC % 0 PT 14.3 INR 1.1 APTT 31.3 Sodium 137 Potassium 3.9 Chloride 105 Carbon Dioxide 25.0 Anion Gap 7 BUN 39 H Creatinine 2.19 H Estim Creat Clear Calc 23.42 Est GFR (MDRD) Af Amer 37 L Est GFR (MDRD) Non-Af 31 L BUN/Creatinine Ratio 17.8 Glucose 135 H Calcium 9.3 Troponin I High Sens 19 Radiography Chest X-Ray - ED: 1 View, Read by ED Physician and Chronic Changes Diagnostic Testing: Clinical Impression(s) from Imaging Studies Brain CT 09/12/23 01:33 IMPRESSION: No CT evidence of acute intracranial hemorrhage or injury. Mild senescent changes with atherosclerosis. N.B. : The above Results were Read Back by Lex Ybarra MD to Rosa Collins MD, and understanding confirmed on 09/12/2023 01:52:43 (ET). Electronically Signed: Lex Ybarra MD at 1:52 EST , ADDENDUM: 09/12/23 0159 IMPRESSION: No CT evidence of acute intracranial hemorrhage or injury. Mild senescent changes with atherosclerosis. N.B. : The above Results were Read Back by Lex Ybarra MD to Rosa Collins MD, and understanding confirmed on 09/12/2023 01:52:43 (ET). Electronically Signed: Lex Ybarra MD at 1:52 EST , Head/Neck CTA 09/12/23 01:35 IMPRESSION: Scattered atherosclerosis with 50% stenosis of left vertebral origin. Remainder of the left vertebral artery origin is widely patent with congenital left vertebral dominance. 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 Multiple thyroid nodules are likely benign given small size relative to age. Ultrasound could further evaluate as clinically indicated. Mild scattered sinus disease. Electronically Signed: Lex Ybarra MD at 2:35 EST , Chest X-Ray 09/12/23 02:10 IMPRESSION: Findings compatible with chronic obstructive pulmonary disease. Hazy opacification right lateral midlung, possibly possibly representing residual peripheral nodularity, with otherwise improved aeration in the mid and lower lungs. CT follow-up is recommended when clinically able for comparison with June 09, 2022 Electronically Signed: Lex Ybarra MD at 2:42 EST , EKG Initial EKG: Attestation: I personally reviewed and interpreted this EKG as follows: Interpretation: Sinus Bradycardia (Sinus bradycardia 57 bpm with a first- degree block.) Treatment and Re-Evaluation :: CBC was normal white count 7 with a hemoglobin of 8.8. Patient has a history of chronic anemia. Chemistry studies remarkable for BUN of 39 and creatinine 2.19. This is consistent with his baseline. Initial troponin is 19. Portable chest x-ray per my interpretation was chronic changes with atelectasis noted in the left lateral lung. EKG although reads out as atrial fibrillation I believe is actually sinus bradycardia with a first-degree AV block. I did look through the patient's air sampling and monitoring recordings and I do not see definite evidence of A- fib. CT of the head reveals chronic changes with no acute findings. CTA of the head and neck reveals no evidence of acute carotid or proximal intracranial artery occlusion. No focal flow-limiting stenosis. I did speak with the neurologist from [facility]. At the time of his exam patient's NIH score was 0. He did recommend observation overnight for MRI. I will speak with the hospitalist. Discharge Plan Triage Chief Complaint: Dizziness ED Provider: Rosa Collins Dx/Rx/DC Orders Clinical Impression: Vertigo Prescriptions: No Action ammonium lactate 12 % lotion 1 applic TOPICAL QD-BID PRN (Reason: dry skin ) triamcinolone acetonide [Nasacort] 55 mcg aerosol,spray 2 spray INTRANASAL DAILY PRN (Reason: allergies) (DME) handicap placcard Qty: 1 0RF Rx Instructions: Lifetime: debility coenzyme Q10 [Co Q-10] 100 mg capsule 100 mg PO DAILY ascorbate calcium (vitamin C) 500 mg tablet 500 mg PO DAILY cholecalciferol (vitamin D3) 100 mcg (4,000 unit) tablet 100 mcg (4,000 unit) tablet 100 mcg PO DAILY (DME) spacer See Rx Instructions .ROUTE .MEDSUPPLY Qty: 1 0RF Rx Instructions: As directed ropinirole 1 mg tablet 1 mg PO QHS Qty: 60 5RF Rx Instructions: administer 1-3 hours before bedtime ibuprofen 200 mg tablet 200 mg PO Q6H PRN (Reason: fever or pain) docusate sodium 100 mg capsule 100 mg PO BID pantoprazole 40 mg tablet,delayed release (DR/EC) 40 mg PO DAILY Qty: 90 1RF (DME) OneTouch Ultra Test Strip See Rx Instructions .Route Qty: 180 1RF Rx Instructions: Check twice a day. (DME) lancets Misc See Rx Instructions .Route Qty: 180 1RF Rx Instructions: twice daily insulin glargine [Lantus Solostar U-100 Insulin] 100 unit/mL (3 mL) insulin pen 15 unit subcut QAM Qty: 15 0RF aspirin 81 mg tablet,chewable 81 mg PO QHS Patient Comments: antiplatelet spironolactone 25 mg tablet 25 mg PO DAILY Patient Comments: TAKE 1 TABLET BY MOUTH DAILY. THIS IS A DOSE INCREASE albuterol sulfate [Ventolin HFA] 90 mcg/actuation HFA aerosol inhaler 2 inh INHALATION Q4H PRN (Reason: shortness of breath or wheezing) Qty: 18 6RF nitroglycerin [Nitrostat] 0.4 mg tablet, sublingual 0.4 mg SUBLINGUAL Q5-15M PRN (Reason: chest pain) Qty: 25 2RF ipratropium-albuterol 0.5 mg-3 mg(2.5 mg base)/3 mL solution for nebulization 3 ml inhalation 4X/DAY PRN PRN (Reason: shortness of breath or wheezing) Qty: 90 6RF ipratropium bromide 42 mcg (0.06 %) spray,non-aerosol 2 spray INTRANASAL TID-QID PRN (Reason: allergy symptoms) Qty: 15 6RF Rx Instructions: nasal drip - administer into each nostril; wait 30 seconds between sprays albuterol sulfate 2.5 mg /3 mL (0.083 %) solution for nebulization 2.5 mg inhalation Q4H PRN (Reason: Sob &/Or Wheezing) Qty: 180 11RF ipratropium bromide 0.02 % solution 2.5 ml inhalation Q6H PRN (Reason: shortness of breath or wheezing) Qty: 150 11RF furosemide 40 mg tablet 40 mg PO .COMPLEX Qty: 180 3RF Rx Instructions: 40 mg orally daily. Take 40 mg BID if weight > 190lbs; montelukast 10 mg tablet 10 mg PO QHS Qty: 90 3RF carvedilol 25 mg tablet 25 mg PO BID Qty: 180 3RF Rx Instructions: must administer with a meal/food atorvastatin 40 mg tablet 40 mg PO QODAY Qty: 45 3RF hydralazine 100 mg tablet 100 mg PO TID Qty: 360 3RF Farxiga 10 mg tablet 10 mg PO DAILY Qty: 90 0RF isosorbide mononitrate 30 mg tablet extended release 24 hr 30 mg PO DAILY Qty: 90 1RF amlodipine 10 mg tablet 10 mg PO DAILY Qty: 90 3RF loratadine 10 mg tablet 10 mg PO DAILY Qty: 90 0RF Primary Care Provider: Carolynn Whitman Referrals: Carolynn Whitman MD [Primary Care Provider] - Disposition Disposition: Acute Care Hospital [facility]
--- NOTE | 2023-09-12 03:21 | HP.PCM.HOS_ITS ---
[facility] Date of Service: 09/12/23 Chief Complaint: Severe vertigo, nausea and dry heaves [facility] Narrative DESIREE HERNANDES, is a 88 M with a past medical history of essential hypertension, hyperlipidemia, obesity; with BMI of 31.3 this admission, MARIXA, diabetes mellitus type 2; of unknown control on xiga and Lantus, history of chronic diastolic CHF; with preserved left ventricular ejection fraction, coronary artery disease; status post distal RCA stent (1997), history of AAA; status postrepair (1998), history of tobacco abuse (quit 2007); with subsequent COPD, chronic kidney disease; stage III-IV with baseline serum creatinine of ~2.3 mg/dL with a BUN of ~37 mg/dL, history of severe peripheral vascular disease with lower extremity claudication; with patient unable to complete procedure for lower extremity angioplasty at 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 Mr. Hernandes reports his symptoms began approximately 1 hour prior to arrival with the abrupt onset of severe dizziness with nausea after he had taken a shower and gone back to the family room. Describes it as both a lightheaded and spinning sensation simultaneously and he states he had to ramirez back to his chair before he fell. Even though he was holding his head still he perceived the movement of the pattern in his carpet with dry heaving and mild headache so he decided to come in for further evaluation and treatment. He denies associated fever, chills, chest pain, slurred speech, unilateral weakness, diarrhea or constipation. In the ER his CT scan of the head was negative for acute pathologic changes but neurology recommended follow-up MRI in the a.m. to confirm there was no acute neurologic injury with the ER physician concerned for possible central vertigo secondary to TIA/CVA and he was then admitted to the CDU under observation status for a stay that is expected to be less than 48 hours. [facility] Medical History (Updated 09/12/23 @ 03:[address] Raymond Teague DO) (HFpEF) heart failure with preserved ejection fraction Abdominal aortic aneurysm (AAA) Acute cystitis with hematuria Allergic rhinitis Ambulates with cane Anemia Arthritis Asthma Asthma-COPD overlap syndrome Atherosclerotic heart disease of [place] coronary artery without angina pectoris Back pain BiPAP (biphasic positive airway pressure) dependence Cancer Carotid bruit Chest pain Chronic constipation Chronic cough Colon polyp Colonic mass COPD (chronic obstructive pulmonary disease) Coronary artery disease Daytime hypersomnia DDD (degenerative disc disease), lumbar Debility DM2 (diabetes mellitus, type 2) ALMEIDA (dyspnea on exertion) Dyslipidemia Easy bruising Essential (primary) hypertension Fatigue Former smoker Frequent hospital admissions Gastroesophageal reflux disease History of edema History of heart attack History of hiatal hernia History of irregular heartbeat History of pain when walking History of renal disease History of steroid therapy History of stress test Hoarseness Hyperlipidemia Injury of back Kidney stone Leg cramps Lightheadedness Obstructive sleep apnea MARIXA (obstructive sleep apnea) Overweight Patellar bursitis of right knee Peripheral vascular disease of extremity with claudication Pleural effusion Pneumonia Pre-syncope PVD (peripheral vascular disease) Rectus sheath hematoma Recurrent urinary tract infection Restless legs syndrome Right leg swelling Seasonal allergies Shortness of breath on exertion Sleep apnea Somatic dysfunction of pelvic region Walker as ambulation aid Wears dentures Wears glasses Wears hearing aid Home Medications ammonium lactate 12 % lotion 1 applic topical QD-BID PRN dry skin 02/06/18 [History Last Taken Unknown] handicap placcard #1 ea 09/28/19 [Rx Last Taken Unknown] ascorbate calcium (vitamin C) 500 mg tablet 500 mg PO DAILY Bone strength 05/03/20 [History Last Taken 03/09/22] coenzyme Q10 100 mg capsule (Co Q-10) 100 mg PO DAILY 05/03/20 [History Last Taken Unknown] cholecalciferol (vitamin D3) 100 mcg (4,000 unit) tablet 100 mcg PO DAILY 11/03/20 [History Last Taken Unknown] spacer #1 ea 01/12/21 [Rx Last Taken Unknown] albuterol sulfate 90 mcg/actuation aerosol inhaler (Ventolin HFA) 2 inh inhalation Q4H PRN shortness of breath or wheezing #18 grams 11/27/21 [Rx Last Taken Unknown] aspirin 81 mg chewable tablet 81 mg PO QHS heart health 05/30/22 [History Last Taken Unknown] nitroglycerin 0.4 mg sublingual tablet (Nitrostat) 0.4 mg sublingual Q5-15M PRN chest pain #25 tabs 06/08/22 [Rx Last Taken Unknown] ipratropium 0.5 mg-albuterol 3 mg (2.5 mg base)/3 mL nebulization soln 3 ml inhalation 4X/DAY PRN PRN shortness of breath or wheezing #90 mL 08/03/22 [Rx Last Taken Unknown] ropinirole 1 mg tablet 1 mg PO QHS #60 tabs 10/18/22 [Rx Last Taken Unknown] triamcinolone acetonide 55 mcg nasal spray aerosol (Nasacort) 2 spray intranasal DAILY PRN allergies 11/06/22 [History Last Taken Unknown] ipratropium bromide 42 mcg (0.06 %) nasal spray 2 spray intranasal TID-QID PRN allergy symptoms #15 mL 11/09/22 [Rx Last Taken Unknown] albuterol sulfate 2.5 mg/3 mL (0.083 %) solution for nebulization 2.5 mg (3 mL) inhalation Q4H PRN Sob &/Or Wheezing #180 mL 11/29/22 [Rx Last Taken Unknown] ipratropium bromide 0.02 % solution for inhalation 2.5 ml inhalation Q6H PRN shortness of breath or wheezing #150 mL 11/29/22 [Rx Last Taken Unknown] furosemide 40 mg tablet 40 mg PO .COMPLEX #180 tabs 04/05/23 [Rx Last Taken Unknown] montelukast 10 mg tablet 10 mg PO QHS Respiratory #90 tabs 04/24/23 [Rx Last Taken Unknown] docusate sodium 100 mg capsule 100 mg PO BID 05/06/23 [History Last Taken Unknown] ibuprofen 200 mg tablet 200 mg PO Q6H PRN fever or pain 05/06/23 [History Last Taken Unknown] blood sugar diagnostic (Twitt2go Ultra Test strips) #180 ea 05/16/23 [Rx Last Taken Unknown] pantoprazole 40 mg tablet,delayed release 40 mg PO DAILY reflux #90 tabs 05/16/23 [Rx Last Taken Unknown] atorvastatin 40 mg tablet 40 mg PO QODAY cholesterol #45 tabs 05/23/23 [Rx Last Taken Unknown] carvedilol 25 mg tablet 25 mg PO BID #180 tabs 05/23/23 [Rx Last Taken Unknown] hydralazine 100 mg tablet 100 mg PO TID Disreguard previous RX: dose changed #360 tabs 06/07/23 [Rx Last Taken Unknown] dapagliflozin propanediol 10 mg tablet (Flaquita) 10 mg PO DAILY #90 tabs 07/09/23 [Rx Last Taken Unknown] insulin glargine 100 unit/mL (3 mL) subcutaneous pen (Lantus Solostar U-100 Insulin) 15 unit (0.15 mL) subcut QAM #15 mL 07/18/23 [Rx Last Taken Unknown] lancets #180 ea 07/18/23 [Rx Last Taken Unknown] isosorbide mononitrate 30 mg tablet,extended release 24 hr 30 mg PO DAILY #90 tabs 07/24/23 [Rx Last Taken Unknown] amlodipine 10 mg tablet 10 mg PO DAILY This is a dose increase #90 tabs 08/28/23 [Rx Last Taken Unknown] loratadine 10 mg tablet 10 mg PO DAILY #90 tabs 09/04/23 [Rx Last Taken Unknown] spironolactone 25 mg tablet 25 mg PO DAILY 09/12/23 [History Last Taken Unknown] Allergy/AdvReac Type Severity Reaction Status Date / Time cilostazol [From Pletal] Allergy Unknown Verified 09/12/23 01:25 felodipine Allergy Hives Verified 09/12/23 01:25 levofloxacin Allergy Hives Verified 09/12/23 01:25 Sulfa (Sulfonamide Allergy Unknown Verified 09/12/23 01:25 Antibiotics) Family History Father Diabetes Cancer Prostate cancer Mother Dementia Brother Parkinsons Brother Cancer Surgical History H/O aortic aneurysm repair (11/1998) History of coronary artery stent placement (02/17/08) History of endarterectomy (07/2018) History of hernia repair History of left heart catheterization (03/2014) History of surgical procedure History of transurethral resection of prostate History of vascular surgery (08/2018) Social History household members: spouse 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 status: 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 Smoking Status: Former smoker quit date: 08/07/08 pack-years: 2 Tobacco: How many years used: 52 Electronic Cigarette Use: not used how long ago did patient quit smokin years ago alcohol intake: current alcohol intake frequency: holidays/special occasions only details: hx of alcohol abuse substance use type: does not use caffeine: No what type of physical activity do you participate in: other details: Nustep frequency: 5-6 times per week duration: 15-30 minutes/day seatbelt use: always do you feel safe at home: Yes ROS ROS Narrative Review of systems: General: Denies fever chills HENT: Denies headache, denies stuffy nose, denies sore throat EYES: Patient admits to seeing a pattern in his carpet change while holding his head still Resp: Denies cough, denies shortness of breath Cardiac: Denies chest pain GI: He admits to nausea and vomiting with dry heaves but he denies abdominal pain, constipation or diarrhea : Denies changes in urination Extremity: Denies swelling Musculoskeletal: Feels somewhat generally weak and unwell Neuro: Denies any numbness/tingling Heme: Denies any bleeding or bruising Skin: Denies rashes Psychiatric: No complaints voiced Endocrine: No polyuria The rest of the 14 point ROS was negative except for positives in HPI. Vital Signs Vital Signs Vital Signs: 09/12/23 01:18 09/12/23 01:33 09/12/23 01:30 Temperature 96.2 F L Temperature Source Temporal Pulse Rate 54 L 50 L Respiratory Rate 16 14 Blood Pressure 196/68 H 168/67 H Blood Pressure Mean 110 100 Pulse Ox 96 96 Oxygen Delivery Method Room Air Room Air Room Air 09/12/23 01:47 09/12/23 01:33 09/12/23 01:45 Temperature Temperature Source Pulse Rate 59 L 62 63 Respiratory Rate 16 12 12 Blood Pressure 178/67 H 172/68 H 171/80 H Blood Pressure Mean 104 102 110 Pulse Ox 94 96 95 Oxygen Delivery Method Room Air Room Air Room Air 09/12/23 02:00 09/12/23 02:15 09/12/23 02:30 Temperature Temperature Source Pulse Rate 63 60 57 L Respiratory Rate 22 H 17 17 Blood Pressure 166/64 H 179/61 H 181/68 H Blood Pressure Mean 98 100 105 Pulse Ox 95 95 94 Oxygen Delivery Method Room Air Room Air Room Air Weight Weight: 205 lb 11.06 oz Body Mass Index (BMI) 31.2 Physical Exam Const alert, oriented x3, no apparent distress and average body habitus General Appearance: cooperative HEENT normocephalic, head/scalp atraumatic, hearing grossly normal bilaterally, moist oral mucous membranes and oropharynx normal Eyes PERRL, EOMs intact bilaterally and conjunctivae normal Eyes Narrative: No nystagmus was noted. Neck no lymphadenopathy and supple Resp normal respiratory effort, no retractions, no use of accessory muscles and clear to auscultation bilaterally Cardio regular rate and regular rhythm Cardio Narrative: Mild bradycardia noted in the ~54 bpm range. GI normal to inspection, nondistended, normoactive bowel sounds, soft to palpation, non-tender and non-distended Extremity normal to inspection and full ROM Neuro oriented x3, CN's II-XII intact bilaterally, moves all extremities and no focal motor deficits Sensorium / Orientation: awake, alert, oriented to person, oriented to place and oriented to time Speech: speech normal Motor Exam: strength 5/5 throughout Psych Mood & Affect: anxious Results Medical Records Data Attestation: I reviewed the patient's medical records Lab / Micro Data Attestation: I reviewed the patient's lab results. 09/12/23 01:40 09/12/23 01:40 Labs: Laboratory Results - last 24 hr 09/12/23 01:40: WBC 7.0, RBC 3.29 L, Hgb 8.8 L, Hct 28.8 L, MCV 87.5, MCH 26.7 L , MCHC 30.6 L, RDW Std Deviation 45.1 H, RDW Coeff of Justin 14.1, Plt Count 313, MPV 10.3, Immature Gran % (Auto) 0.400, Neut % (Auto) 53.8, Lymph % (Auto) 25.5, Laurens % (Auto) 14.9 H, Eos % (Auto) 4.7, Baso % (Auto) 0.7, Absolute Neuts (auto) 3.7, Absolute Lymphs (auto) 1.78, Nucleated RBC % 0, PT 14.3, INR 1.1, APTT 31.3, Sodium 137, Potassium 3.9, Chloride 105, Carbon Dioxide 25.0, Anion Gap 7, BUN 39 H, Creatinine 2.19 H, Estim Creat Clear Calc 23.42, Est GFR (MDRD) Af Amer 37 L, Est GFR (MDRD) Non-Af 31 L, BUN/Creatinine Ratio 17.8, Glucose 135 H, Calcium 9.3, Troponin I High Sens 19 Imagaing Radiology Impression Brain CT 09/12/23 01:33 IMPRESSION: No CT evidence of acute intracranial hemorrhage or injury. Mild senescent changes with atherosclerosis. N.B. : The above Results were Read Back by Lex Ybarra MD to Rosa Collins MD, and understanding confirmed on 09/12/2023 01:52:43 (ET). Electronically Signed: eLx Ybarra MD at 1:52 EST , ADDENDUM: 09/12/23 0159 IMPRESSION: No CT evidence of acute intracranial hemorrhage or injury. Mild senescent changes with atherosclerosis. N.B. : The above Results were Read Back by Lex Ybarra MD to Rosa Collins MD, and understanding confirmed on 09/12/2023 01:52:43 (ET). Electronically Signed: Lex Ybarra MD at 1:52 EST , Head/Neck CTA 09/12/23 01:35 IMPRESSION: Scattered atherosclerosis with 50% stenosis of left vertebral origin. Remainder of the left vertebral artery origin is widely patent with congenital left vertebral dominance. 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 Multiple thyroid nodules are likely benign given small size relative to age. Ultrasound could further evaluate as clinically indicated. Mild scattered sinus disease. Electronically Signed: Lex Ybarra MD at 2:35 EST , Chest X-Ray 09/12/23 02:10 IMPRESSION: Findings compatible with chronic obstructive pulmonary disease. Hazy opacification right lateral midlung, possibly possibly representing residual peripheral nodularity, with otherwise improved aeration in the mid and lower lungs. CT follow-up is recommended when clinically able for comparison with June 09, 2022 Electronically Signed: Lex Ybarra MD at 2:42 EST , Assessment & Plan Assessment/Plan (1) Vertigo: (2) Nausea and vomiting: QUALIFIERS: Vomiting type: bilious vomiting Qualified Code(s): R11.14 - Bilious vomiting (3) Peripheral vascular disease of extremity with claudication: (4) Asthma-COPD overlap syndrome: PLAN: Plan 1. 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 Give aspirin and statin plus allow for permissive hypertension until stroke is definitively ruled out. Check MRI of the brain without contrast given patient's significant chronic kidney disease. Check carotid dopplers given his history of severe cardiovascular and peripheral vascular disease. Check echocardiogram to evaluate left ventricular function and to assess for possible valvulopathy. Give IV Zofran as needed nausea and vomiting. Give oral Antivert as needed for breakthrough vertigo symptoms. Finally, we will consult PT/OT and case management of this patient may have residual mobility issues with help appreciated in advance. 2. History of severe peripheral vascular disease with lower extremity claudication; with patient unable to complete procedure for lower extremity angioplasty at [facility] last Saturday - Noted. This patient has a vasculopathic history. Continue home medications as previous. 3. Essential hypertension - Hold scheduled antihypertensives until CVA is definitively ruled out on MRI. 4. Hyperlipidemia - Resume statin and check lipid profile this morning in light of #1. 5. Obesity; with BMI of 31.3 this admission plus MARIXA - Weight loss will be recommended. Continue nocturnal BiPAP as previous. 6. Diabetes mellitus type 2; of unknown control on Farxiga and Lantus - ADA diet once CVA ruled out. Fingerstick blood sugars before every meal and at bedtime plus lowest intensity sliding scale insulin. Hold Farxiga and cut Lantus dose by approximately 60% to minimize the potential risk of hypoglycemia. 7. History of chronic diastolic CHF; with preserved left ventricular ejection fraction - Stable. Resume current treatment consider decreasing his dose of beta-wagner with persistent bradycardia in the low 50s for the past 2 to 3 weeks with patient currently on Coreg 25 mg p.o. twice daily. 8. Coronary artery disease; status post distal RCA stent (1997) - Stable. Continue home medications as previous. 9. History of AAA; status postrepair (1998) - Noted. Patient reports recent MRI of the abdomen with no acute pathologic changes. 10. History of tobacco abuse (quit 2007); with subsequent COPD - Stable with no evidence of flare at this time. Continue as needed nebulizers. 11. Chronic kidney disease; stage III-IV with baseline serum creatinine of ~2.3 mg/dL with a BUN of ~37 mg/dL - Stable. Avoid potentially nephrotoxic agents and check BMP daily to ensure continued stability. 12. 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 Give Tylenol as needed fever or pain. 13. Restless leg syndrome - Resume Requip as previous. 14. DVT prophylaxis - Heparin 5,000 units SQ 3 times daily plus SCD's. Total time: Approximately 70 minutes. Charges/Coding Visit Charges OBSV E&M: 14648 Observ/hosp same date L2
--- NOTE | 2023-09-12 08:41 | MRI_ITS ---
STUDY: MRI BRAIN WITHOUT CONTRAST REASON FOR EXAM: Male, 88 years old. R/O stroke, dizziness, lightheaded, spinning sensation TECHNIQUE: Standardized multiplanar fat and water weighted pulse sequences were obtained. COMPARISON: CT of the brain September 12, 2023 FINDINGS: Mild atrophy and minor periventricular white matter ischemic changes without mass effect or restricted diffusion. Normal bilateral basal ganglia. Normal thalami. There is no extra-axial fluid accumulation. Normal flow voids within the major intracranial circulation suggesting patency by spin echo criteria. Normal sella turcica, pituitary gland, infundibular stalk, optic chiasm and hypothalamus. Normal tectal plate and pineal gland. Normal midbrain, brea and medulla. Normal cerebellum. Normal basal cisterns. Normal bilateral temporal bones. Normal bilateral internal auditory canals. Postsurgical changes of the orbits.. Minor mucosal thickening of bilateral ethmoid air cells. Normal calvarium and skull base. Normal visualized soft tissue structures. Normal visualized upper cervical spine. MRI/Brain without Contrast IMPRESSION: Mild atrophy and minor periventricular white matter ischemic changes. No evidence for acute infarct Electronically Signed: Francisco J Babcock MD at 16:06 EST Reading Location ID and State: [facility] / [place] Tel , Service support ,
[2023-09-12] MEDS: Spironolactone 25 MG Tablet PO (11:13)
[2023-09-12] MEDS: amLODIPine 10 MG Tablet PO (11:14)
[2023-09-12] MEDS: Pantoprazole Sodium 40 MG Tablet PO (11:14)
[2023-09-12] MEDS: Isosorbide Mononitrate 30 MG Tablet PO (11:14)
[2023-09-12] MEDS: Carvedilol 25 MG Tablet PO (11:14)
[2023-09-12] MEDS: hydrALAZINE 50 MG Tablet 100 MG PO (13:45)
[2023-09-12] MEDS: Furosemide 40 MG Tablet PO (13:45)
[2023-09-12 14:09] LABS: Bedside Glucose 189 mg/dL (74-106)
[2023-09-12] MEDS: Insulin Glargine-YFGN 100 UNIT/ML Pen 15 UNIT SC (14:48)
--- NOTE | 2023-09-12 15:00 | NURSING ---
Pt to MRI via information technology technician
--- NOTE | 2023-09-12 16:27 | NURSING ---
Pt ambulated halls of ED with walker without assistance. Denies any problems with dizziness or impaired mobility from baseline.
[2023-09-12] MEDS: Clopidogrel Bisulfate 75 MG Tablet PO (16:45)
--- NOTE | 2023-09-12 17:28 | DCINST_ITS ---
Discharge Instructions Diet Discharge Diet: 1800 Calorie Control Diet Activity Discharge Activity: Return to Normal Activity Weight Bearing Status: Full weight bearing Follow Up Care Test Results: Test results from this visit will be discussed in further detail at your follow- up appointment, if applicable. Discharge Plan Admission Admit Date/Time: 09/12/23 06:22 Primary Reason for Your Visit: vertigo Attending Provider: Inocencio Perkins Primary Care Provider: Carolynn Whitman Consulting Providers: Raymond Teague Discharge Orders/Prescriptions Prescriptions: Continued ammonium lactate 12 % lotion 1 applic TOPICAL QD-BID PRN (Reason: dry skin ) triamcinolone acetonide [Nasacort] 55 mcg aerosol,spray 2 spray INTRANASAL DAILY PRN (Reason: allergies) (DME) handicap placcard Qty: 1 0RF Rx Instructions: Lifetime: debility coenzyme Q10 [Co Q-10] 100 mg capsule 100 mg PO DAILY ascorbate calcium (vitamin C) 500 mg tablet 500 mg PO DAILY cholecalciferol (vitamin D3) 100 mcg (4,000 unit) tablet 100 mcg (4,000 unit) tablet 100 mcg PO DAILY (DME) spacer See Rx Instructions .ROUTE .MEDSUPPLY Qty: 1 0RF Rx Instructions: As directed ropinirole 1 mg tablet 1 mg PO QHS Qty: 60 5RF Rx Instructions: administer 1-3 hours before bedtime ibuprofen 200 mg tablet 200 mg PO Q6H PRN (Reason: fever or pain) docusate sodium 100 mg capsule 100 mg PO BID pantoprazole 40 mg tablet,delayed release (DR/EC) 40 mg PO DAILY Qty: 90 1RF (DME) OneTouch Ultra Test Strip See Rx Instructions .Route Qty: 180 1RF Rx Instructions: Check twice a day. (DME) lancets Misc See Rx Instructions .Route Qty: 180 1RF Rx Instructions: twice daily insulin glargine [Lantus Solostar U-100 Insulin] 100 unit/mL (3 mL) insulin pen 15 unit subcut QAM Qty: 15 0RF aspirin 81 mg tablet,chewable 81 mg PO QHS Patient Comments: antiplatelet spironolactone 25 mg tablet 25 mg PO DAILY Patient Comments: TAKE 1 TABLET BY MOUTH DAILY. THIS IS A DOSE INCREASE clopidogrel 75 mg tablet Patient Comments: Take 1 tablet by mouth once daily. albuterol sulfate [Ventolin HFA] 90 mcg/actuation HFA aerosol inhaler 2 inh INHALATION Q4H PRN (Reason: shortness of breath or wheezing) Qty: 18 6RF nitroglycerin [Nitrostat] 0.4 mg tablet, sublingual 0.4 mg SUBLINGUAL Q5-15M PRN (Reason: chest pain) Qty: 25 2RF ipratropium-albuterol 0.5 mg-3 mg(2.5 mg base)/3 mL solution for nebulization 3 ml inhalation 4X/DAY PRN PRN (Reason: shortness of breath or wheezing) Qty: 90 6RF ipratropium bromide 42 mcg (0.06 %) spray,non-aerosol 2 spray INTRANASAL TID-QID PRN (Reason: allergy symptoms) Qty: 15 6RF Rx Instructions: nasal drip - administer into each nostril; wait 30 seconds between sprays albuterol sulfate 2.5 mg /3 mL (0.083 %) solution for nebulization 2.5 mg inhalation Q4H PRN (Reason: Sob &/Or Wheezing) Qty: 180 11RF ipratropium bromide 0.02 % solution 2.5 ml inhalation Q6H PRN (Reason: shortness of breath or wheezing) Qty: 150 11RF furosemide 40 mg tablet 40 mg PO .COMPLEX Qty: 180 3RF Rx Instructions: 40 mg orally daily. Take 40 mg BID if weight > 190lbs; montelukast 10 mg tablet 10 mg PO QHS Qty: 90 3RF carvedilol 25 mg tablet 25 mg PO BID Qty: 180 3RF Rx Instructions: must administer with a meal/food atorvastatin 40 mg tablet 40 mg PO QODAY Qty: 45 3RF hydralazine 100 mg tablet 100 mg PO TID Qty: 360 3RF Farxiga 10 mg tablet 10 mg PO DAILY Qty: 90 0RF isosorbide mononitrate 30 mg tablet extended release 24 hr 30 mg PO DAILY Qty: 90 1RF amlodipine 10 mg tablet 10 mg PO DAILY Qty: 90 3RF loratadine 10 mg tablet 10 mg PO DAILY Qty: 90 0RF Referrals / Follow Up: Carolynn Whitman MD [Primary Care Provider] - Within 1 Month Disposition Disposition (needs filled in before D/C Order can be placed): Home, Self Care
--- NOTE | 2023-09-12 17:33 | DS.PCM_ITS ---
Providers Date of Admission: 09/12/23 Date of Discharge: 09/12/23 Primary Care Physician: Dr. Carolynn Whitman MD Reason For Visit: VERTIGO Diagnosis Discharge Diagnosis (1) Vertigo: Status: Acute Code(s): R42 - Dizziness and giddiness (2) Nausea and vomiting: Status: Acute Code(s): R11.2 - Nausea with vomiting, unspecified Qualifiers: Vomiting type: bilious vomiting Qualified Code(s): R11.14 - Bilious vomiting (3) Peripheral vascular disease of extremity with claudication: Status: Chronic Code(s): I73.9 - Peripheral vascular disease, unspecified (4) Asthma-COPD overlap syndrome: Status: Chronic Code(s): J44.9 - Chronic obstructive pulmonary disease, unspecified Plan #1 transient vertigo #2 chronic obstructive pulmonary disease #3 chronic kidney disease stage IIIb #4 chronic iron deficiency anemia #5 type 2 diabetes Medications at Discharge Home Medications ammonium lactate 12 % lotion 1 applic topical QD-BID PRN dry skin 02/06/18 handicap placcard #1 ea 09/28/19 ascorbate calcium (vitamin C) 500 mg tablet 500 mg PO DAILY Bone strength 05/03/20 coenzyme Q10 100 mg capsule (Co Q-10) 100 mg PO DAILY 05/03/20 cholecalciferol (vitamin D3) 100 mcg (4,000 unit) tablet 100 mcg PO DAILY 11/03/20 spacer #1 ea 01/12/21 albuterol sulfate 90 mcg/actuation aerosol inhaler (Ventolin HFA) 2 inh inhalation Q4H PRN shortness of breath or wheezing #18 grams 11/27/21 aspirin 81 mg chewable tablet 81 mg PO QHS heart health 05/30/22 nitroglycerin 0.4 mg sublingual tablet (Nitrostat) 0.4 mg sublingual Q5-15M PRN chest pain #25 tabs 06/08/22 ipratropium 0.5 mg-albuterol 3 mg (2.5 mg base)/3 mL nebulization soln 3 ml inhalation 4X/DAY PRN PRN shortness of breath or wheezing #90 mL 08/03/22 ropinirole 1 mg tablet 1 mg PO QHS #60 tabs 10/18/22 ipratropium bromide 42 mcg (0.06 %) nasal spray 2 spray intranasal TID-QID PRN allergy symptoms #15 mL 11/09/22 albuterol sulfate 2.5 mg/3 mL (0.083 %) solution for nebulization 2.5 mg (3 mL) inhalation Q4H PRN Sob &/Or Wheezing #180 mL 11/29/22 ipratropium bromide 0.02 % solution for inhalation 2.5 ml inhalation Q6H PRN shortness of breath or wheezing #150 mL 11/29/22 furosemide 40 mg tablet 40 mg PO .COMPLEX #180 tabs 04/05/23 montelukast 10 mg tablet 10 mg PO QHS Respiratory #90 tabs 04/24/23 blood sugar diagnostic (Vestiage Ultra Test strips) #180 ea 05/16/23 pantoprazole 40 mg tablet,delayed release 40 mg PO DAILY reflux #90 tabs 05/16/23 atorvastatin 40 mg tablet 40 mg PO QODAY cholesterol #45 tabs 05/23/23 carvedilol 25 mg tablet 25 mg PO BID #180 tabs 05/23/23 hydralazine 100 mg tablet 100 mg PO TID Disreguard previous RX: dose changed #360 tabs 06/07/23 dapagliflozin propanediol 10 mg tablet (Farxiga) 10 mg PO DAILY #90 tabs 07/09/23 insulin glargine 100 unit/mL (3 mL) subcutaneous pen (Lantus Solostar U-100 Insulin) 15 unit (0.15 mL) subcut QAM #15 mL 07/18/23 lancets #180 ea 07/18/23 isosorbide mononitrate 30 mg tablet,extended release 24 hr 30 mg PO DAILY #90 tabs 07/24/23 amlodipine 10 mg tablet 10 mg PO DAILY This is a dose increase #90 tabs 08/28/23 loratadine 10 mg tablet 10 mg PO DAILY #90 tabs 09/04/23 clopidogrel 75 mg tablet mg 09/12/23 spironolactone 25 mg tablet 25 mg PO DAILY 09/12/23 meclizine 25 mg tablet 25 mg PO BID PRN vertigo #60 tabs 09/13/23 Hospital Course Operations None Procedures 2-D Echocardiogram Summary of Care Provided Minutes Spent on Discharge: 31 Hospital Course: This 88-year-old white male was seen in the emergency room at [facility] with complaints of a sudden onset of dizziness and nausea that lasted approximately 5 to 10 minutes at home. He said that the floor of the room was spinning. Patient denied any focal motor weaknes. Teleneurology was consulted, MRI of the brain was recommended. CT of the brain was performed that showed no evidence of acute intracranial hemorrhage or injury. CTA of the head and neck was performed which did not show any high-grade stenosis. Patient was placed into observation status, he underwent an echocardiogram which showed no abnormalities. Patient underwent an MRI of the brain that showed no evidence of acute stroke. Later that day on 09/12/2023, patient was seen and examined: On examination he appeared in good health and spirits. Vital signs as documented. Skin warm and dry and without overt rashes. Neck without JVD, neck was supple, trachea midline, thyroid was normal. Lungs clear bilaterally, normal air movement was noted. Heart exam notable for regular rhythm, normal sounds and absence of murmurs, rubs or gallops. Abdomen unremarkable and without evidence of organomegaly, masses, or abdominal aortic enlargement. Bowel sounds are present, abdomen is not distended. Extremities nonedematous, no cyanosis was noted, no clubbing was noted. Neuro: Cranial nerves II through XII are grossly intact, no focal motor deficits were noted, sensation to light touch and pinprick intact, motor exam 5/5 throughout. Psych: Patient is alert and oriented x3, he does not appear anxious or depressed, he does not appear agitated. Patient was discharged home in stable condition on 09/12/2023. Weight / BMI Weight Weight: 93.3 kg Body Mass Index (BMI) 31.1 ABG / Lab / Microbiology Data 09/12/23 01:40 09/12/23 01:40 Laboratory: Laboratory Results - last 24 hr 09/12/23 01:40: WBC 7.0, RBC 3.29 L, Hgb 8.8 L, Hct 28.8 L, MCV 87.5, MCH 26.7 L , MCHC 30.6 L, RDW Std Deviation 45.1 H, RDW Coeff of Justin 14.1, Plt Count 313, MPV 10.3, Immature Gran % (Auto) 0.400, Neut % (Auto) 53.8, Lymph % (Auto) 25.5, Stafford % (Auto) 14.9 H, Eos % (Auto) 4.7, Baso % (Auto) 0.7, Absolute Neuts (auto) 3.7, Absolute Lymphs (auto) 1.78, Nucleated RBC % 0, PT 14.3, INR 1.1, APTT 31.3, Sodium 137, Potassium 3.9, Chloride 105, Carbon Dioxide 25.0, Anion Gap 7, BUN 39 H, Creatinine 2.19 H, Estim Creat Clear Calc 23.42, Est GFR (MDRD) Af Amer 37 L, Est GFR (MDRD) Non-Af 31 L, BUN/Creatinine Ratio 17.8, Glucose 135 H, Calcium 9.3, Troponin I High Sens 19 09/12/23 13:49: POC Glucose 189 H Radiography Diagnostic Testing: Radiology Impression Brain CT 09/12/23 01:33 IMPRESSION: No CT evidence of acute intracranial hemorrhage or injury. Mild senescent changes with atherosclerosis. N.B. : The above Results were Read Back by Lex Ybarra MD to Rosa Collins MD, and understanding confirmed on 09/12/2023 01:52:43 (ET). Electronically Signed: Lex Ybarra MD at 1:52 EST , ADDENDUM: 09/12/23 0159 IMPRESSION: No CT evidence of acute intracranial hemorrhage or injury. Mild senescent changes with atherosclerosis. N.B. : The above Results were Read Back by Lex Ybarra MD to Rosa Collins MD, and understanding confirmed on 09/12/2023 01:52:43 (ET). Electronically Signed: Lex Ybarra MD at 1:52 EST , Head/Neck CTA 09/12/23 01:35 IMPRESSION: Scattered atherosclerosis with 50% stenosis of left vertebral origin. Remainder of the left vertebral artery origin is widely patent with congenital left vertebral dominance. 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 Multiple thyroid nodules are likely benign given small size relative to age. Ultrasound could further evaluate as clinically indicated. Mild scattered sinus disease. Electronically Signed: Lex Ybarra MD at 2:35 EST , Chest X-Ray 09/12/23 02:10 IMPRESSION: Findings compatible with chronic obstructive pulmonary disease. Hazy opacification right lateral midlung, possibly possibly representing residual peripheral nodularity, with otherwise improved aeration in the mid and lower lungs. CT follow-up is recommended when clinically able for comparison with June 09, 2022 Electronically Signed: Lex Ybarra MD at 2:42 EST , Brain MRI 09/12/23 08:41 IMPRESSION: Mild atrophy and minor periventricular white matter ischemic changes. No evidence for acute infarct Electronically Signed: Francisco J Babcock MD at 16:06 EST , D/C Instructions Discharge Diet: 1800 Calorie Control Diet Weight Bearing Status: Full weight bearing Meaningful Use Info Meaningful Use Diagnoses (Choose all that apply): None applicable Discharge Plan Admission Admit Date/Time: 09/12/23 06:22 Primary Reason for Your Visit: vertigo Attending Provider: Inocnecio Perkins Primary Care Provider: Carolynn Whitman Consulting Providers: Raymond Teague Discharge Orders/Prescriptions Prescriptions: Continued ammonium lactate 12 % lotion 1 applic TOPICAL QD-BID PRN (Reason: dry skin ) (DME) handicap placcard Qty: 1 0RF Rx Instructions: Lifetime: debility coenzyme Q10 [Co Q-10] 100 mg capsule 100 mg PO DAILY ascorbate calcium (vitamin C) 500 mg tablet 500 mg PO DAILY cholecalciferol (vitamin D3) 100 mcg (4,000 unit) tablet 100 mcg (4,000 unit) tablet 100 mcg PO DAILY (DME) spacer See Rx Instructions .ROUTE .MEDSUPPLY Qty: 1 0RF Rx Instructions: As directed ropinirole 1 mg tablet 1 mg PO QHS Qty: 60 5RF Rx Instructions: administer 1-3 hours before bedtime pantoprazole 40 mg tablet,delayed release (DR/EC) 40 mg PO DAILY Qty: 90 1RF (DME) OneTouch Ultra Test Strip See Rx Instructions .Route Qty: 180 1RF Rx Instructions: Check twice a day. (DME) lancets Misc See Rx Instructions .Route Qty: 180 1RF Rx Instructions: twice daily insulin glargine [Lantus Solostar U-100 Insulin] 100 unit/mL (3 mL) insulin pen 15 unit subcut QAM Qty: 15 0RF aspirin 81 mg tablet,chewable 81 mg PO QHS Patient Comments: antiplatelet spironolactone 25 mg tablet 25 mg PO DAILY Patient Comments: TAKE 1 TABLET BY MOUTH DAILY. THIS IS A DOSE INCREASE clopidogrel 75 mg tablet Patient Comments: Take 1 tablet by mouth once daily. albuterol sulfate [Ventolin HFA] 90 mcg/actuation HFA aerosol inhaler 2 inh INHALATION Q4H PRN (Reason: shortness of breath or wheezing) Qty: 18 6RF nitroglycerin [Nitrostat] 0.4 mg tablet, sublingual 0.4 mg SUBLINGUAL Q5-15M PRN (Reason: chest pain) Qty: 25 2RF ipratropium-albuterol 0.5 mg-3 mg(2.5 mg base)/3 mL solution for nebulization 3 ml inhalation 4X/DAY PRN PRN (Reason: shortness of breath or wheezing) Qty: 90 6RF ipratropium bromide 42 mcg (0.06 %) spray,non-aerosol 2 spray INTRANASAL TID-QID PRN (Reason: allergy symptoms) Qty: 15 6RF Rx Instructions: nasal drip - administer into each nostril; wait 30 seconds between sprays albuterol sulfate 2.5 mg /3 mL (0.083 %) solution for nebulization 2.5 mg inhalation Q4H PRN (Reason: Sob &/Or Wheezing) Qty: 180 11RF ipratropium bromide 0.02 % solution 2.5 ml inhalation Q6H PRN (Reason: shortness of breath or wheezing) Qty: 150 11RF furosemide 40 mg tablet 40 mg PO .COMPLEX Qty: 180 3RF Rx Instructions: 40 mg orally daily. Take 40 mg BID if weight > 190lbs; montelukast 10 mg tablet 10 mg PO QHS Qty: 90 3RF carvedilol 25 mg tablet 25 mg PO BID Qty: 180 3RF Rx Instructions: must administer with a meal/food atorvastatin 40 mg tablet 40 mg PO QODAY Qty: 45 3RF hydralazine 100 mg tablet 100 mg PO TID Qty: 360 3RF Farxiga 10 mg tablet 10 mg PO DAILY Qty: 90 0RF isosorbide mononitrate 30 mg tablet extended release 24 hr 30 mg PO DAILY Qty: 90 1RF amlodipine 10 mg tablet 10 mg PO DAILY Qty: 90 3RF loratadine 10 mg tablet 10 mg PO DAILY Qty: 90 0RF No Action meclizine 25 mg tablet 25 mg PO BID PRN (Reason: vertigo) Qty: 60 0RF Referrals / Follow Up: Carolynn Whitman MD [Primary Care Provider] - Within 1 Month Disposition Disposition (needs filled in before D/C Order can be placed): Home, Self Care Charges/Coding Visit Charges Inpatient E&M: 17850 Disch Hosp >30min
== END 2023-09-12 17:51 | disposition home or self-care (01) ==
LOC: ED 02:46 → PCU 06:23
PROVIDERS: Admitting Provider Internal Medicine; Emergency Provider Emergency Medicine; PCP Internal Medicine; Visit Provider Internal Medicine
DX: R42 Dizziness and giddiness (principal); E11.51 Type 2 diabetes mellitus with diabetic peripheral angiopathy without gangrene; J44.9 Chronic obstructive pulmonary disease, unspecified; I13.0 Hypertensive heart and chronic kidney disease with heart failure and stage 1 through stage 4 chronic kidney disease, or unspecified chronic kidney disease; I50.32 Chronic diastolic (congestive) heart failure; E11.22 Type 2 diabetes mellitus with diabetic chronic kidney disease; I48.91 Unspecified atrial fibrillation; Z79.4 Long term (current) use of insulin; N18.32 Chronic kidney disease, stage 3b; Z87.891 Personal history of nicotine dependence; I25.10 Atherosclerotic heart disease of native coronary artery without angina pectoris; R11.14 Bilious vomiting; E78.5 Hyperlipidemia, unspecified; Z79.899 Other long term (current) drug therapy; Z79.82 Long term (current) use of aspirin; D50.9 Iron deficiency anemia, unspecified; Z79.02 Long term (current) use of antithrombotics/antiplatelets; E66.9 Obesity, unspecified; Z68.31 Body mass index [BMI] 31.0-31.9, adult; G47.33 Obstructive sleep apnea (adult) (pediatric)
CPT/HCPCS: 70450; 70496; 70498; 70551; 71045; 80048; 82962; 84484; 85025; 85610; 85730; 93005; 99221; 99285; Q9967; A4216; G0378

== ENCOUNTER → 2023-10-01 | Outpatient (CLI) | payer MEDICARE, SELFPAY ==
--- NOTE | 2023-10-01 12:21 | CDU_ITS ---
Reason For Study: dizziness Rt. Velocities/BP Lt. Velocities/BP Prox CCA 78.7/8.8 cm/sec. Prox CCA 90.0/15.2 cm/sec. Mid CCA 87.2/13.5 cm/sec. Mid CCA 90.0/16.3 cm/sec. Dist CCA 58.9/8.8 cm/sec. Dist CCA 77.7/16.3 cm/sec. Prox ICA 132.1/20.6 cm/sec. Prox ICA 90.7/18.2 cm/sec. Mid ICA 143.0/20.6 cm/sec. Mid ICA 95.5/20.6 cm/sec. Dist ICA 95.5/15.2 cm/sec. Dist ICA 60.9/13.0 cm/sec. Rt. ICA/CCA = 1.6. Lt. ICA/CCA = 1.1. Prox ECA 315.0 cm/sec. Prox ECA 171.8/6.0 cm/sec. Rt. Vert. 55.3/9.7 cm/sec. Lt. Vert. 68.1/17.0 cm/sec. Right Extracranial There is heterogeneous, irregular atherosclerotic plaque noted in the right common carotid artery. There is heterogeneous, irregular atherosclerotic plaque noted in the right internal carotid artery. The atherosclerotic plaque causes acoustic shadowing. There is heterogeneous, irregular atherosclerotic plaque noted in the right external carotid artery. Antegrade flow is noted in the right vertebral artery. Left Extracranial There is heterogeneous, irregular atherosclerotic plaque noted in the left common carotid artery. There is heterogeneous, irregular atherosclerotic plaque noted in the left internal carotid artery. The atherosclerotic plaque causes acoustic shadowing. There is heterogeneous, irregular atherosclerotic plaque noted in the left external carotid artery. Antegrade flow is noted in the left vertebral artery. Procedure Carotid Duplex 21121. This is a Carotid Duplex examination using B-mode, color flow and specral Doppler. The exam was diagnostic. Exam performed in department. VL/Carotid Duplex Ultrasound Interpretation Summary Moderate (50-69%) stenosis right extracranial internal carotid. Mild (<50%) stenosis left extracranial internal carotid. Patent and antegrade vertebrals bilaterally. Limited due to calcific shadowing, alternative imaging may be beneficial Ordering Physician: Marguerite Jennings Performed By: Jonel Mendez RVT
--- NOTE | 2023-10-01 12:21 | US_ITS ---
ACR Level 3 findings have been noted. An addendum which confirms receipt of the report will follow. INDICATION: multiple nodules seen on CT EXAMINATION: Ultrasound US Thyroid (eg thyroid, parathyroid, parotid) TECHNIQUE: Padilla scale and color doppler imaging was performed of the thyroid gland. COMPARISON: CTA head and neck September 12, 2023. FINDINGS: RIGHT THYROID LOBE: 5.6 x 1.7 x 2.0 cm. Homogeneous echotexture with normal vascularity. [Oval anechoic 7 mm simple colloid cyst, TI-RADS 1.. Posterior lower pole solid hypoechoic irregular nodule 0.9 x 0.7 x 0.7 cm, taller than wide without calcifications, reference image 6 and 16, TI RAD 5 corresponding with CTA rim-enhancing lesion September 12, 2023 LEFT THYROID LOBE: 4.6 x 1.3 x 2.4 cm. Homogeneous echotexture with normal vascularity. [Multiple anechoic to 3 mm colloid cysts, TI RADS 1. ISTHMUS: 0.5 cm. No thyroid nodules are present. US/Thyroid IMPRESSION: Thyromegaly 9 mm TI-RAD 5 posterior inferior right thyroid nodule which correlates with the most conspicuous nodule on CT. 1 year follow-up ultrasound is recommended per TI-RADS criteria. Other multiple bilateral benign colloid cysts. Electronically Signed: Lex Ybarra MD at 9:24 EST ,
== END | disposition home or self-care (01) ==
LOC: CVS 12:17
PROVIDERS: PCP Internal Medicine; Referring Provider Nurse Practitioner Gerontology; Visit Provider Nurse Practitioner Gerontology
DX: R42 Dizziness and giddiness (principal); E04.1 Nontoxic single thyroid nodule
CPT/HCPCS: 76536; 93880

== ENCOUNTER → 2023-10-15 | Outpatient (CLI) | payer MEDICARE, SELFPAY ==
--- NOTE | 2023-10-15 17:05 | RAD_ITS ---
STUDY: X-RAY CHEST REASON FOR EXAM: Male, 88 years old. PRODUCTIVE COUGH, RHONCHI TECHNIQUE: PA and lateral COMPARISON: September 12, 2023 FINDINGS: Bibasilar interstitial thickening... There is no demonstrated pleural abnormality. Normal size heart. Normal mediastinum and frank. Normal visualized pulmonary arteries. Mildly calcified aortic arch and descending thoracic aorta. Dorsal spine demonstrates degenerative change. Normal visualized ribs,, and shoulders. Postsurgical changes of right clavicle There is no demonstrated abnormality of the visualized soft tissue structures of the upper abdomen. RAD/Chest PA and Lateral IMPRESSION: Mild bibasilar interstitial thickening which may be consistent with bronchitis. No focal infiltration Electronically Signed: Francisco J Babcock MD at 19:51 EST ,
[2023-10-16 08:14] LABS: Bacteria 0 SEEN /hpf (None Seen)
[2023-10-16 12:30] LABS: Color, Urine Yellow (Yellow); Glucose, Dipstick 1000 mg/dl (Normal); Ketone-Dipstick Negative (Negative); Leukocyte Esterase-Dipstick 100 /ul (Negative); Nitrite-Dipstick Negative (Negative); Occult Blood-Urine Negative /ul (Negative); Protein-Dipstick 100 mg/dl (Negative); Urine Bilirubin Dipstick Negative (Negative); Urine Clarity Clear (Clear); Urine Urobilinogen Normal (Normal)
[2023-10-16 12:37] LABS: Mucous, Urine 1+ /hpf (<or=2+); Red Blood Cells-Urine 0-5 SEEN /hpf (0-5); Squamous Epithelial Cells - UA 0-5 SEEN /hpf (0-5); White Blood Cells 0-5 SEEN /hpf (0-5)
== END | disposition home or self-care (01) ==
LOC: RAD 16:52
PROVIDERS: PCP Internal Medicine; Visit Provider Nurse Practitioner
DX: R05.9 Cough, unspecified (principal); R30.0 Dysuria
CPT/HCPCS: 71046; 81001; 87086; 87088

== ENCOUNTER 2023-12-02 10:39 | Emergency (ER) | payer MEDICARE, SELFPAY ==
[2023-12-02 10:41] VITALS: BP 127/74; PULSE 63; RESP 29; TEMP 36.7; O2SAT 97; BMI 31.2
--- NOTE | 2023-12-02 10:45 | ED.RN ---
PT REPORTS THAT HE HAD SURGERY TO HIS LEFT ILIAC ARTERY 3 WEEKS AGO [facility]. HE REPORTS SURGERY SITE HAS NOT COMPLETELY HEALED. HE REPORTS HIS FOLLOW UP APPT IS ON December.
--- NOTE | 2023-12-02 11:01 | EKG12_ITS ---
Test Reason : SOB Blood Pressure : / mmHG Vent. Rate : 055 BPM Atrial Rate : 000 BPM P-R Int : 000 ms QRS Dur : 092 ms QT Int : 480 ms P-R-T Axes : 000 047 -20 degrees QTc Int : 459 ms Atrial fibrillation with slow ventricular response Nonspecific ST abnormality Abnormal QRS-T angle, consider primary T wave abnormality Abnormal ECG Confirmed by RICHA SMITH, FARRAH ([id number]), features editor AMPARO MALHOTRA ([id number]) on 12/09/2023 9:51:38 AM Referred By: Confirmed By:EUGENIE CHAUDHRY MD
--- NOTE | 2023-12-02 11:03 | ED.VIS.DYS ---
HPI History of Present Illness Chief Complaint: Shortness of Breath Informant: patient and spouse/S.O. Onset/Context/Timing Onset: Days Context: gradual Timing: Continuous Quality: Positive for Wheezing Current Severity: Mild Maximum Severity: Mild Worsened by: Exertion Relieved by: Albuterol Associated Symptoms cough, clear sputum and green sputum Chest Pain: Positive for None Narrative Narrative: 88-year-old male extensive past medical history of pulmonary disease which he is on BiPAP at home CAD, SD, stents, diabetes, anemia and chronic kidney disease. He is on aspirin. He does have a history of COPD but is not on home O2. He does have a nebulizer at home and currently is not on steroids. He denies being on blood thinners besides aspirin. Patient states has been short of breath for a week with a cough primarily of clear sputum at times green. No chest pain or hemoptysis. No history of DVT or PE [place] this is getting worse over the last week. He states similar symptoms in October was treated with prednisone and it improved. He had vascular surgery at [facility] on November 12 where he had a patch put in a artery of his left leg around the groin. He was in the hospital for about 3 days. PE Risk Factors: Positive for Recent surgery; Negative for Cancer, OCP + Smoking + > 35, Prior DVT or PE, Recent immobilization or Recent travel Prior similar symptoms: Yes Recent Illness/Hospitalization: Yes [facility] Medical History (HFpEF) heart failure with preserved ejection fraction Abdominal aortic aneurysm (AAA) Acute cystitis with hematuria Allergic rhinitis Ambulates with cane Anemia Arthritis Asthma Asthma-COPD overlap syndrome Atherosclerotic heart disease of [place] coronary artery without angina pectoris Back pain BiPAP (biphasic positive airway pressure) dependence Cancer Carotid bruit Chest pain Chronic constipation Chronic cough Colon polyp Colonic mass COPD (chronic obstructive pulmonary disease) Coronary artery disease Daytime hypersomnia DDD (degenerative disc disease), lumbar Debility DM2 (diabetes mellitus, type 2) ALMEIDA (dyspnea on exertion) Dyslipidemia Easy bruising Essential (primary) hypertension Fatigue Former smoker Frequent hospital admissions Gastroesophageal reflux disease History of edema History of heart attack History of hiatal hernia History of irregular heartbeat History of pain when walking History of renal disease History of steroid therapy History of stress test Hoarseness Hyperlipidemia Injury of back Kidney stone Leg cramps Lightheadedness Obstructive sleep apnea MARIXA (obstructive sleep apnea) Overweight Patellar bursitis of right knee Peripheral vascular disease of extremity with claudication Pleural effusion Pneumonia Pre-syncope PVD (peripheral vascular disease) Rectus sheath hematoma Recurrent urinary tract infection Restless legs syndrome Right leg swelling Seasonal allergies Shortness of breath on exertion Sleep apnea Somatic dysfunction of pelvic region Walker as ambulation aid Wears dentures Wears glasses Wears hearing aid Home Medications ammonium lactate 12 % lotion 1 applic topical QD-BID PRN dry skin 02/06/18 [History Last Taken Unknown] handicap placcard #1 ea 09/28/19 [Rx Last Taken Unknown] ascorbate calcium (vitamin C) 500 mg tablet 500 mg PO DAILY Bone strength 05/03/20 [History Last Taken 03/09/22] coenzyme Q10 100 mg capsule (Co Q-10) 100 mg PO DAILY 05/03/20 [History Last Taken Unknown] cholecalciferol (vitamin D3) 100 mcg (4,000 unit) tablet 100 mcg PO DAILY 11/03/20 [History Last Taken Unknown] spacer #1 ea 01/12/21 [Rx Last Taken Unknown] aspirin 81 mg chewable tablet 81 mg PO QHS heart health 05/30/22 [History Last Taken Unknown] nitroglycerin 0.4 mg sublingual tablet (Nitrostat) 0.4 mg sublingual Q5-15M PRN chest pain #25 tabs 06/08/22 [Rx Last Taken Unknown] ipratropium 0.5 mg-albuterol 3 mg (2.5 mg base)/3 mL nebulization soln 3 ml inhalation 4X/DAY PRN PRN shortness of breath or wheezing #90 mL 08/03/22 [Rx Last Taken Unknown] ropinirole 1 mg tablet 1 mg PO QHS #60 tabs 10/18/22 [Rx Last Taken Unknown] albuterol sulfate 2.5 mg/3 mL (0.083 %) solution for nebulization 2.5 mg (3 mL) inhalation Q4H PRN Sob &/Or Wheezing #180 mL 11/29/22 [Rx Last Taken Unknown] ipratropium bromide 0.02 % solution for inhalation 2.5 ml inhalation Q6H PRN shortness of breath or wheezing #150 mL 11/29/22 [Rx Last Taken Unknown] furosemide 40 mg tablet 40 mg PO .COMPLEX #180 tabs 04/05/23 [Rx Last Taken Unknown] montelukast 10 mg tablet 10 mg PO QHS Respiratory #90 tabs 04/24/23 [Rx Last Taken Unknown] atorvastatin 40 mg tablet 40 mg PO QODAY cholesterol #45 tabs 05/23/23 [Rx Last Taken Unknown] carvedilol 25 mg tablet 25 mg PO BID #180 tabs 05/23/23 [Rx Last Taken Unknown] dapagliflozin propanediol 10 mg tablet (davyga) 10 mg PO DAILY #90 tabs 07/09/23 [Rx Last Taken Unknown] lancets #180 ea 07/18/23 [Rx Last Taken Unknown] isosorbide mononitrate 30 mg tablet,extended release 24 hr 30 mg PO DAILY #90 tabs 07/24/23 [Rx Last Taken Unknown] amlodipine 10 mg tablet 10 mg PO DAILY This is a dose increase #90 tabs 08/28/23 [Rx Last Taken Unknown] loratadine 10 mg tablet 10 mg PO DAILY #90 tabs 09/04/23 [Rx Last Taken Unknown] clopidogrel 75 mg tablet mg 09/12/23 [History Last Taken Unknown] spironolactone 25 mg tablet 25 mg PO DAILY 09/12/23 [History Last Taken Unknown] meclizine 25 mg tablet 25 mg PO BID PRN vertigo #60 tabs 09/13/23 [Rx Last Taken Unknown] blood sugar diagnostic (Boombotix Ultra Test strips) #180 ea 09/16/23 [Rx Last Taken Unknown] pen needle, diabetic 31 gauge x 1/4 (1st Tier Unifine Pentips) #100 ea 09/16/23 [Rx Last Taken Unknown] albuterol sulfate 90 mcg/actuation aerosol inhaler (Ventolin HFA) 2 inh inhalation Q4H PRN shortness of breath or wheezing #18 grams 10/23/23 [Rx Last Taken Unknown] budesonide-formoterol HFA 160 mcg-4.5 mcg/actuation aerosol inhaler (Symbicort) 2 puff inhalation BID #1 ea 10/23/23 [Rx Last Taken Unknown] doxylamin 12.5 mg-PSE 10 mg-DM 20 mg-acetaminophen 650 mg oral pwdr pk ([place] Plus Cold-Flu) 1 packet PO Q4H PRN 10/23/23 [History Last Taken Unknown] ipratropium bromide 42 mcg (0.06 %) nasal spray 2 spray intranasal TID-QID PRN allergy symptoms #15 mL 10/23/23 [Rx Last Taken Unknown] prednisone 20 mg tablet 60 mg (3 x 20 mg) PO QDAY #15 tabs 10/23/23 [Rx Last Taken Unknown] hydralazine 100 mg tablet See Rx Instructions .Route .COMPLEX #360 tabs 11/06/23 [Rx Last Taken Unknown] insulin glargine 100 unit/mL (3 mL) subcutaneous pen (Lantus Solostar U-100 Insulin) 15 unit (0.15 mL) subcut QAM #40 mL 11/19/23 [Rx Last Taken Unknown] pantoprazole 40 mg tablet,delayed release 40 mg PO DAILY reflux #90 tabs 11/19/23 [Rx Last Taken Unknown] prednisone 20 mg tablet 40 mg (2 x 20 mg) PO DAILY 7 days #14 tabs 12/02/23 [Rx Last Taken Unknown] Allergy/AdvReac Type Severity Reaction Status Date / Time cilostazol [From Pletal] Allergy Unknown Verified 12/02/23 10:40 felodipine Allergy Hives Verified 12/02/23 10:40 levofloxacin Allergy Hives Verified 12/02/23 10:40 Sulfa (Sulfonamide Allergy Unknown Verified 12/02/23 10:40 Antibiotics) Family History Father Diabetes Cancer Prostate cancer Mother Dementia Brother Parkinsons Brother Cancer Surgical History H/O aortic aneurysm repair (11/1998) History of coronary artery stent placement (02/17/08) History of endarterectomy (07/2018) History of hernia repair History of left heart catheterization (03/2014) History of surgical procedure History of transurethral resection of prostate History of vascular surgery (08/2018) Social History household members: spouse 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 status: 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 Wheezing. Shortness of breath. No chest pain. No hemoptysis. Review of Systems ROS Unobtainable: Denies due to encephalopathy Constitutional Constitutional ED: Denies chills or fever(s) ENT ENT ED: Denies ear pain Cardiovascular Cardiovascular: Denies chest pain Respiratory/Chest Respiratory/Chest: Reports dyspnea and dyspnea on exertion; Denies cough Gastrointestinal Gastrointestinal: Denies abdominal pain, constipation, diarrhea, melena, nausea or vomiting Genitourinary Genitourinary ED: Denies dysuria or hematuria Musculoskeletal Musculoskeletal: Denies arthralgias Integumentary Denies abscess Neurologic Neurologic: Denies headache(s) Psychiatric Psychiatric: Denies anxiety Endocrine Endocrinology: Denies cold intolerance Hematologic/Lymphatic Hematologic/Lymphatic: Denies easy bleeding, easy bruising or lymphadenopathy Allergic/Immunologic Allergic/Immunologic ED: Denies mouth swelling, tongue swelling or urticaria EXAM Physical Exam Narrative Exam Narrative: 88-year-old male vital signs stable afebrile. Pulse ox 97% on room air no hypoxia. H EENT exam unremarkable. Neck nontender. Lungs coarse breath sounds bilaterally. Diminished in the bases. Few scattered wheezes. No rales or rhonchi. Equal symmetrical. Heart regular rhythm rate about 65 no murmur. Chest wall and ribs nontender. Abdomen soft nontender. Moving all 4 extremities. Trace edema both lower extremities. Well-healing left groin vascular surgery incision dry and clean no redness or pus. Neurologically is awake and alert. Answer questions following commands. present in room. Helping with the history. Const Vital Signs: 12/02/23 10:41 12/02/23 11:13 12/02/23 11:17 Temperature 98.1 F Temperature Source Oral Pulse Rate 63 54 L Respiratory Rate 29 H 22 H Respiratory Effort Respiratory Pattern Tachypnea Blood Pressure 127/74 H Blood Pressure Mean 91 Pulse Ox 97 Oxygen Delivery Method Room Air Room Air Oxygen Flow Rate (L/min) 12/02/23 11:17 12/02/23 15:04 Temperature Temperature Source Pulse Rate 68 Respiratory Rate 18 Respiratory Effort Short of Breath Respiratory Pattern Blood Pressure 147/59 H Blood Pressure Mean 88 Pulse Ox 96 Oxygen Delivery Method Room Air Nasal Cannula Oxygen Flow Rate (L/min) 2 Positive well nourished and well developed; Negative for cachectic, contractures or unkempt General Appearance ED: well developed; Negative for unkempt, cachectic, contractures or pallor Nutritional Appearance: Negative for cachectic HEENT Reports moist mucous membranes; Denies dry mucous membranes atraumatic; Negative for trauma or tenderness Mouth ED: No dry mucous membranes Mouth: No dry mucous membranes Eyes PERRL and EOMs intact bilaterally General Eye ED: Negative for pale conjunctiva or scleral icterus Neck no lymphadenopathy, supple, no meningeal signs and no JVD Lymph Lymphatic: Negative for other Chest Wall Chest: Negative for other Resp No normal respiratory effort and No clear to auscultation bilaterally Resp Narrative: Prolonged expiratory phase. Few scattered wheezes. Diminished and coarse breath sounds in both bases. Effort and Inspection: Negative for pain with movement Auscultation: diminished lung sounds; Negative for rales, rhonchi or wheezes Cardio regular rate, regular rhythm, S1 normal heart sound, S2 normal heart sound and no murmurs Rate: Negative for bradycardia or tachycardic Rhythm: Negative for abnormal rhythm GI non-tender, non-distended and no masses Inspection: Negative for other Auscultation: normoactive bowel sounds Palpation: soft; Negative for tender Rectal Exam: Negative for normal sphincter tone Back/Spine no CVA tenderness and normal to inspection General Back: Negative for CVA tenderness Extremity Negative for normal to inspection Extremity Narrative: Well-healing vascular surgery incision left groin. No pus or redness. General Extremety ED: Yes edema; Negative for tenderness General Extremity: edema Neuro oriented x3 and CN's II-XII intact bilaterally Sensorium / Orientation: alert, oriented to person, oriented to place and oriented to time; Negative for orientation impaired, confused or lethargic Speech: speech normal Motor Exam: strength 5/5 throughout Psych mental status grossly normal Appearance: Negative for unkempt Attitude: No agitated Mood & Affect: Negative for depressed, anxious or tearful Thought Process: normal thought process Skin no wounds General Skin Exam: Negative for jaundice or pallor Lesions: no lesions Rashes: no rashes Trauma: Negative for abrasion MDM MDM MDM Narrative Medical decision making narrative: 88-year-old male history of COPD with few scattered wheezes and coarse breath sounds. Treated with DuoNeb aerosol and Solu-Medrol. Screening labs and chest x-ray to be obtained. Rule out pneumonia versus failure versus cardiac or other etiologies. Repeat exam patient is doing well at 3:20 PM. He is resting comfortably. He did feel that the DuoNeb aerosol gave him some improvement. Patient's D-dimer is elevated however is creatinine is greater than 2 and we cannot do a CTA. He has never had a blood clot before that was venous. He had a prior CTA years ago which was negative. I will ultrasound his legs. Those are negative when I can do any further evaluation for the elevated D-dimer. Patient to be discharged home on prednisone 40 mg a day for a week. Uses nebulizer he has not aerosol treatments at home. Outpatient follow-up with his primary care physician to ensure his blood counts are improving. We discussed his blood count being 8.0 he has had no black or bloody stools recently. He is on no blood thinners besides aspirin. He did have recent vascular surgery which might be the reason for his count to be lower. Plus he has chronic kidney disease. Patient doing well at 4 PM and will be discharged to home. History & Record Review Discussion w/independent historian: Patient Additional record(s) reviewed:: Prior inpatient record, Prior outpatient record, Prior ED visit and Prior labs Lab Data Attestation: I reviewed the patient's lab results. Lab results narrative: CBC shows a white count of 6. H&H 8.0 and 27 patient has a history of chronic anemia and hemoglobins are often between 8 and 9. Platelet count is 438. Electrolytes show a gap of 6. BUN and creatinine are 35 and 2.02. Glucose 152. Troponin is 21. D-dimer is elevated at 3.12. Noninvasive studies of both lower extremities show no DVT. 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 But no clots were seen. I discussed this directly with the radiocommunications technician that was due on the exam. Labs: Laboratory Results - last 24 hr 12/02/23 11:22 WBC 6.1 RBC 3.19 L Hgb 8.0 L Hct 27.0 L MCV 84.6 MCH 25.1 L MCHC 29.6 L RDW Std Deviation 47.3 H RDW Coeff of Justin 15.6 H Plt Count 438 MPV 10.3 Immature Gran % (Auto) 0.500 Neut % (Auto) 60.1 Lymph % (Auto) 22.5 [place] % (Auto) 12.8 H Eos % (Auto) 3.3 Baso % (Auto) 0.8 Absolute Neuts (auto) 3.7 Absolute Lymphs (auto) 1.37 Nucleated RBC % 0 D-Dimer Quant (PE/DVT) 3.12 H* Sodium 139 Potassium 4.0 Chloride 109 H Carbon Dioxide 24.0 Anion Gap 6 BUN 35 H Creatinine 2.02 H Estim Creat Clear Calc 29.08 Est GFR (MDRD) Af Amer 40 L Est GFR (MDRD) Non-Af 33 L BUN/Creatinine Ratio 17.3 Glucose 152 H Calcium 9.1 Troponin I High Sens 21 B-Natriuretic Peptide 693.8 H Radiography Chest X-Ray - ED: 1 View and Read by ED Physician Diagnostic Testing: Clinical Impression(s) from Imaging Studies Chest X-Ray 12/02/23 11:25 IMPRESSION: Stable scarring at the lung bases. No acute abnormality is seen. Electronically Signed: Yemi Clifton MD at 12:04 EST , Rhythm Strip Rhythm Strip: A-fib Rate: 55 Ectopy: None EKG Initial EKG: Attestation: I personally reviewed and interpreted this EKG as follows: Interpretation: Atrial Fibrillation Comments: A-fib rate of 55 no acute signs of SD or ischemia. Discharge Plan Triage Chief Complaint: Shortness of Breath ED Provider: Dinesh Comer Dx/Rx/DC Orders Clinical Impression: History of SD (myocardial infarction), Acute on chronic anemia, History of COPD, History of chronic kidney disease, Acute dyspnea, History of diabetes mellitus Instructions: ED COPD Flare Prescriptions: New prednisone 20 mg tablet 40 mg PO DAILY 7 Days Qty: 14 0RF No Action ammonium lactate 12 % lotion 1 applic TOPICAL QD-BID PRN (Reason: dry skin ) (DME) handicap placcard Qty: 1 0RF Rx Instructions: Lifetime: debility coenzyme Q10 [Co Q-10] 100 mg capsule 100 mg PO DAILY ascorbate calcium (vitamin C) 500 mg tablet 500 mg PO DAILY cholecalciferol (vitamin D3) 100 mcg (4,000 unit) tablet 100 mcg (4,000 unit) tablet 100 mcg PO DAILY (DME) spacer See Rx Instructions .ROUTE .MEDSUPPLY Qty: 1 0RF Rx Instructions: As directed ropinirole 1 mg tablet 1 mg PO QHS Qty: 60 5RF Rx Instructions: administer 1-3 hours before bedtime [place] Plus Cold-Flu 12.5-10-20-650 mg powder in packet 1 packet PO Q4H PRN Rx Instructions: DNExceed 5 doses/24h albuterol sulfate [Ventolin HFA] 90 mcg/actuation HFA aerosol inhaler 2 inh INHALATION Q4H PRN (Reason: shortness of breath or wheezing) Qty: 18 6RF ipratropium bromide 42 mcg (0.06 %) spray,non-aerosol 2 spray INTRANASAL TID-QID PRN (Reason: allergy symptoms) Qty: 15 6RF Rx Instructions: nasal drip - administer into each nostril; wait 30 seconds between sprays budesonide-formoterol [Symbicort] 160-4.5 mcg/actuation HFA aerosol inhaler 2 puff inhalation BID Qty: 1 3RF Rx Instructions: administer with spacer, rinse mouth after each use prednisone 20 mg tablet 60 mg PO QDAY Qty: 15 0RF Rx Instructions: administer with food or milk meclizine 25 mg tablet 25 mg PO BID PRN (Reason: vertigo) Qty: 60 0RF (DME) OneTouch Ultra Test Strip See Rx Instructions .Route Qty: 180 1RF Rx Instructions: Check twice a day. (DME) pen needle, diabetic [1st Tier Unifine Pentips] 31 gauge x 1/4 needle See Rx Instructions .Route Qty: 100 0RF Rx Instructions: daily (DME) lancets Misc See Rx Instructions .Route Qty: 180 1RF Rx Instructions: twice daily aspirin 81 mg tablet,chewable 81 mg PO QHS Patient Comments: antiplatelet spironolactone 25 mg tablet 25 mg PO DAILY Patient Comments: TAKE 1 TABLET BY MOUTH DAILY. THIS IS A DOSE INCREASE clopidogrel 75 mg tablet Patient Comments: Take 1 tablet by mouth once daily. nitroglycerin [Nitrostat] 0.4 mg tablet, sublingual 0.4 mg SUBLINGUAL Q5-15M PRN (Reason: chest pain) Qty: 25 2RF ipratropium-albuterol 0.5 mg-3 mg(2.5 mg base)/3 mL solution for nebulization 3 ml inhalation 4X/DAY PRN PRN (Reason: shortness of breath or wheezing) Qty: 90 6RF albuterol sulfate 2.5 mg /3 mL (0.083 %) solution for nebulization 2.5 mg inhalation Q4H PRN (Reason: Sob &/Or Wheezing) Qty: 180 11RF ipratropium bromide 0.02 % solution 2.5 ml inhalation Q6H PRN (Reason: shortness of breath or wheezing) Qty: 150 11RF furosemide 40 mg tablet 40 mg PO .COMPLEX Qty: 180 3RF Rx Instructions: 40 mg orally daily. Take 40 mg BID if weight > 190lbs; montelukast 10 mg tablet 10 mg PO QHS Qty: 90 3RF carvedilol 25 mg tablet 25 mg PO BID Qty: 180 3RF Rx Instructions: must administer with a meal/food atorvastatin 40 mg tablet 40 mg PO QODAY Qty: 45 3RF Farxiga 10 mg tablet 10 mg PO DAILY Qty: 90 0RF isosorbide mononitrate 30 mg tablet extended release 24 hr 30 mg PO DAILY Qty: 90 1RF amlodipine 10 mg tablet 10 mg PO DAILY Qty: 90 3RF loratadine 10 mg tablet 10 mg PO DAILY Qty: 90 0RF hydralazine 100 mg tablet See Rx Instructions .ROUTE .COMPLEX Qty: 360 3RF Dose Instruction: TAKE 1 TABLET BY MOUTH THREE TIMES DAILY Rx Instructions: TAKE 1 TABLET BY MOUTH THREE TIMES DAILY pantoprazole 40 mg tablet,delayed release (DR/EC) 40 mg PO DAILY Qty: 90 1RF insulin glargine [Lantus Solostar U-100 Insulin] 100 unit/mL (3 mL) insulin pen 15 unit subcut QAM Qty: 40 1RF Primary Care Provider: Carolynn Whitman Referrals: Carolynn Whitman MD [Primary Care Provider] - 3-5 Days Activity Restrictions/Additional Instructions: Think your shortness of breath is a combination of your COPD, drainage and your anemia which is worse after your surgery. Prednisone 40 mg a day starting tomorrow. Use your nebulizer to help with your breathing. Follow-up with your primary care physician to ensure you are getting better. They should also check up repeat blood count in 2 to 4 weeks to make sure your blood counts are getting better. Disposition Disposition: Home, Self Care
[2023-12-02] MEDS: Ipratropium/Albuterol Sulfate 3 ML AMPUL.NEB INHALATION (11:12)
[2023-12-02 11:13] VITALS: PULSE 54; RESP 22
[2023-12-02] MEDS: MethylPREDNISolone 125 MG/2 ML Vial IV (11:19)
--- NOTE | 2023-12-02 11:25 | RAD_ITS ---
STUDY: X-RAY CHEST REASON FOR EXAM: Male, 88 years old. Chest pain TECHNIQUE: Single AP portable view of the chest. COMPARISON: Comparison is made with prior study October 15, 2023. FINDINGS: EKG electrodes are seen. Stable increased interstitial markings at the lung bases suggestive of scarring. There is no demonstrated pleural abnormality. Normal size heart. Normal mediastinum and frank. Normal visualized pulmonary arteries. There is atherosclerotic calcification of the aortic arch with tortuosity. There are diffuse degenerative changes of the visualized thoracic spine. Stable ORIF of the distal right clavicular fracture. There is no demonstrated abnormality of the visualized soft tissue structures of the upper abdomen. RAD/Chest 1 View (Portable) IMPRESSION: Stable scarring at the lung bases. No acute abnormality is seen. Electronically Signed: Yemi Clifton MD at 12:04 EST ,
[2023-12-02 11:33] LABS: Absolute Lymphocyte Count 1.37 X10^3/uL (0.83-4.51); Absolute Neutrophil Count 3.7 X10^3/uL (2.0-7.7); Basophil# 0.05 X10^3/uL; Basophil% 0.8 % (0-1); Eosinophils% 3.3 % (0-5); Lymphocyte # 1.37 X10^3/ul (0.83-4.51); Lymphocyte % 22.5 % (19-41); Mean Corp Hgb Conc 29.6 g/dL (32-36); Mean Corpuscular Hgb 25.1 pg (27.0-32.0); Mean Corpuscular Volume 84.6 fL (80-94); Mean Platelet Vol. 10.3 fl (6.2-12.0); Monocyte# 0.78 X10^3/uL; Monocyte% 12.8 % (0-10); NRBC Flagged by Analyzer 0 % (0-5); Neutrophil # 3.65 X10^3/uL (2.7-7.7); Neutrophil % 60.1 % (47-70); Platelet Count 438 K/mm3 (150-450); RBC Distribution Width CV 15.6 % (11.6-14.6); RBC Distribution Width SD 47.3 fl (35.1-43.9); Red Blood Count 3.19 M/mm3 (4.6-6.2); White Blood Count 6.1 K/mm3 (4.4-11.0)
[2023-12-02 11:53] LABS: D-Dimer Quantitative (DVT/PE) 3.12 FEU/ug/m (0.27-0.49)
[2023-12-02 11:54] LABS: Anion Gap 6 (5-15); BUN 35 mg/dL (7-18); BUN/Creat Ratio 17.3 RATIO (10-20); Calcium,Total 9.1 mg/dL (8.5-10.1); Chloride 109 mmol/L (98-107); Creatinine, Serum 2.02 mg/dL (0.70-1.30); EST Glomerular Filtration Rate 33 mL/min (>60); Est Glom Filt Rate - Afr Amer 40 mL/min (>60); Estimated Creatinine Clearance 29.08 ml/min; Glucose 152 mg/dL (74-106); Sodium Level 139 mmol/L (136-145); Troponin-I HS 21 pg/mL (3.0-78.0)
[2023-12-02 12:50] LABS: BNP,B-Type NATRIURETIC PEPTIDE 693.8 pg/mL (0-100)
[2023-12-02 15:04] VITALS: BP 147/59; PULSE 68; RESP 18; O2SAT 96
--- NOTE | 2023-12-02 15:16 | VDLE_ITS ---
Reason For Study: Elevated D Dimer RIGHT LEFT GSV is normal. GSV is normal. CFV is compressible, spontaneous, phasic, CFV is compressible, phasic, and INCOMPETENT competent and demonstrates normal for greater than 1.0 second. augmentation. FV is compressible, phasic, and INCOMPETENT FV is compressible, spontaneous, phasic, for greater than 1.0 second. competent and demonstrates normal POP V is compressible, phasic, and augmentation. INCOMPETENT for greater than 1.0 second. POP V is compressible, spontaneous, phasic, T/P Trunk is compressible. competent and demonstrates normal PTV is compressible. augmentation. LT PerV is compressible. T/P Trunk is compressible. Non vascularized anechoic area measuring PTV is compressible. approximately 3.81cm x 1.91cm is noted in the RT PerV is compressible. Lt Pop Fossa. Procedure This is a venous duplex using B-mode, color flow and spectral Doppler. Exam performed portable in ED. The exam was diagnostic. A preliminary report was called and/or faxed to Dr. Comer. VL/Venous Duplex US - Tawanda Extrem Interpretation Summary No evidence for acute deep venous thrombosis bilateral lower extremities with p atent and compressible bilateral great saphenous veins. Left popliteal space 3.81 x 1.91 cm nonvascular structure location el consistent with a Granger's cyst Incompetent left common femoral, femoral, and popliteal veins Ordering Physician: Dinesh Comer Referring Physician: Carolynn Whitman Performed By: Jameson Hansen, RVT
[2023-12-02 16:03] VITALS: BP 135/94; PULSE 76; RESP 23; TEMP 36.8; O2SAT 96
== END 2023-12-02 16:12 | disposition home or self-care (01) ==
PROVIDERS: Emergency Provider Emergency Medicine; PCP Internal Medicine; Visit Provider Emergency Medicine
DX: R06.00 Dyspnea, unspecified (principal); E11.51 Type 2 diabetes mellitus with diabetic peripheral angiopathy without gangrene; J44.9 Chronic obstructive pulmonary disease, unspecified; I13.0 Hypertensive heart and chronic kidney disease with heart failure and stage 1 through stage 4 chronic kidney disease, or unspecified chronic kidney disease; I50.30 Unspecified diastolic (congestive) heart failure; E11.22 Type 2 diabetes mellitus with diabetic chronic kidney disease; D64.9 Anemia, unspecified; N18.9 Chronic kidney disease, unspecified; I25.10 Atherosclerotic heart disease of native coronary artery without angina pectoris; I25.2 Old myocardial infarction; G47.33 Obstructive sleep apnea (adult) (pediatric); Z95.5 Presence of coronary angioplasty implant and graft; Z87.891 Personal history of nicotine dependence
CPT/HCPCS: 71045; 80048; 83880; 84484; 85025; 85379; 93005; 93970; 94640; 96374; 99283

== ENCOUNTER → 2023-12-16 | Outpatient (CLI) | payer MEDICARE, SELFPAY ==
[2023-12-16 15:23] LABS: Hematocrit 21.4 % (40-54); Hemoglobin 7.7 g/dL (13.0-16.5); Mean Corpuscular Hgb 32.9 pg (27.0-32.0); Mean Corpuscular Volume 91.5 fL (80-94); Mean Platelet Vol. 10.5 fl (6.2-12.0); Platelet Count 214 K/mm3 (150-450); RBC Distribution Width CV 17.4 % (11.6-14.6); RBC Distribution Width SD 48.4 fl (35.1-43.9); Red Blood Count 2.34 M/mm3 (4.6-6.2); White Blood Count 8.6 K/mm3 (4.4-11.0)
[2023-12-16 15:55] LABS: Vitamin B12 369 pg/mL (211-911)
[2023-12-16 16:04] LABS: Anion Gap 6 (5-15); BUN 43 mg/dL (7-18); BUN/Creat Ratio 19.2 RATIO (10-20); Calcium,Total 8.7 mg/dL (8.5-10.1); Chloride 104 mmol/L (98-107); Creatinine, Serum 2.24 mg/dL (0.70-1.30); EST Glomerular Filtration Rate 30 mL/min (>60); Est Glom Filt Rate - Afr Amer 36 mL/min (>60); Ferritin 25 ng/mL (26-388); Glucose 173 mg/dL (74-106); Iron 25 ug/dL (65-175); Iron Binding Capacity,Total 310 ug/dL (250-450); Potassium 3.9 mmol/L (3.5-5.1); Sodium Level 137 mmol/L (136-145)
--- OUTSIDE RECORDS SUMMARY | 2023-12-16 20:26 | XMS RPT_ITS | CCD ---
Author Name Unknown Address [address] [place] [address] Organization [facility] Care Team Providers Care Manager Of Drilling Name Role Phone Emeka Horn MD Primary Care Provider [phone] Chito Rivero Unavailable [phone] Chito Rivero Unavailable [phone] Chito Rivero MD Unavailable [phone] Riaz Whitman MD Primary Care Provider MELI, RIAZ G Primary Care Unavailable RENE SWIFT Attending Unavailable RENE SWIFT Admitting Unavailable RENE SWIFT Attending Unavailable RENE SWIFT Referring Unavailable MELI, RIAZ G Primary Care Unavailable SOLOMON SANDOVAL Unavailable RENE SWIFT Admitting Unavailable MELI, RIAZ G Primary Care Unavailable RENE SWIFT Attending Unavailable RENE SWIFT Referring Unavailable MELI, RIAZ G Primary Care Unavailable BIJAL ZEE Referring Unavailable MELI, RIAZ G Primary Care Unavailable ELIZA MALLORY Referring Unavailable ELIZA MALLORY Attending Unavailable ELIZA MALLORY Referring Unavailable ELIZA MALLORY Referring Unavailable VIPUL BRADY Attending Unavailable VIPUL BRADY Referring Unavailable MELI, RIAZ G Primary Care Unavailable RENE SWIFT Attending Unavailable REEN SWIFT Referring Unavailable RENE SWIFT Referring Unavailable MELI, RIAZ G Primary Care Unavailable RENE SWIFT Attending Unavailable RENE SWIFT Referring Unavailable MELI, RIAZ G Primary Care Unavailable MELI, RIAZ G Primary Care Unavailable VIPUL BRADY Attending Unavailable ELIZA MALLORY Referring Unavailable MELI, RIAZ G Primary Care Unavailable SELIGSON, RENE Attending Unavailable RIAZ WHITMAN Primary Care Unavailable VIPUL BRADY Attending Unavailable ELIZA MALLORY Referring Unavailable RIAZ WHITMAN Primary Care Unavailable VIPUL BRADY Attending Unavailable VIPUL BRADY Referring Unavailable Allergies Allergy Classification Reported Allergen(s) Allergy Type Date of Onset Reaction(s) Facility (20 sources) cilostazol; Translations: [CILOSTAZOL] Drug Allergy [address] [facility] Work Phone: (20 sources) Felodipine; Translations: [FELODIPINE] Drug Allergy [address] [facility] Work Phone: (20 sources) levoFLOXacin; Translations: [LEVOFLOXACIN] Drug Allergy [address] [facility] (20 sources) Sulfonamides (Antibiotic); Translations: [SULFA (SULFONAMIDE ANTIBIOTICS)] Propensity to adverse reactions [address] [facility] Work Phone: Medications Current Medications Medication Drug Class(es) Dates Sig (Normalized) Sig (Original) ammonium lactate 120 mg/ml topical cream (19 sources) Start: 07-07-2021 End: 07-07-2022 ammonium lactate (LAC-HYDRIN) 12 % cream Apply to affected area as needed. 140 g 11 07/07/2021 07/07/2022 Active Completed/Discontinued Medications Medication Drug Class(es) Dates Sig (Normalized) Sig (Original) acetaminophen 500 mg oral tablet (17 sources) take 1 tablet by mouth every eight hours as needed acetaminophen (TYLENOL) 500 mg tablet Take 500 mg by mouth every 8 hours as needed. 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] Onset: 11-09-2023 11-09-2023 Chronic Chronic kidney disease (20 sources) Chronic kidney disease stage 3; Translations: [CKD (chronic kidney disease) stage 3, GFR 30-59 ml/min] Onset: 09-17-2018 06-03-2019 Chronic Chronic kidney disease (1 source) Chronic kidney disease; Translations: [Stage 3a chronic kidney disease (HCC)] Onset: 06-03-2019 Chronic obstructive pulmonary disease and bronchiectasis (20 sources) Acute exacerbation of chronic obstructive airways disease; Translations: [Chronic obstructive pulmonary disease with (acute) exacerbation] Onset: 11-05-2005 10-16-2017 Chronic Congestive heart failure; nonhypertensive (18 sources) Acute heart failure co-occurrent with normal ejection fraction; Translations: [Acute diastolic (congestive) heart failure] Onset: 05-26-2022 Chronic Coronary atherosclerosis and other heart disease (20 sources) Coronary atherosclerosis; Translations: [Atherosclerotic heart disease of inupiat coronary artery without angina pectoris] Onset: 06-13-2005 08-06-2018 Chronic Diabetes mellitus with complications (20 sources) Type 2 diabetes mellitus; Translations: [Type 2 diabetes mellitus with other diabetic neurological complication] Onset: 04-04-2016 08-06-2018 Chronic Disorders of lipid metabolism (20 sources) Hyperlipidemia; Translations: [Hyperlipidemia, unspecified] Onset: 06-13-2005 08-10-2018 Chronic Essential hypertension (20 sources) Essential hypertension; Translations: [Essential (primary) hypertension] Onset: 06-12-2005 08-10-2018 Chronic Heart valve disorders (20 sources) Mitral valve disorder; 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, unspecified] Onset: 06-12-2005 08-10-2018 Chronic Hyperplasia of prostate (20 sources) Nocturia due to benign prostatic hypertrophy; Translations: [Benign prostatic hyperplasia with lower urinary tract symptoms] Onset: 06-12-2005 04-15-2017 Chronic Nausea and vomiting (1 source) Nausea and vomiting; Translations: [Nausea with vomiting, unspecified] Episodic Nutritional deficiencies (20 sources) Vitamin D deficiency; Translations: [Vitamin D deficiency, unspecified] Onset: 02-03-2014 02-03-2014 Chronic Other circulatory disease (20 sources) History of arterial bypass of lower limb artery; Translations: [Presence of other vascular implants and grafts] Onset: 08-07-2018 08-07-2018 Chronic Other circulatory disease (3 sources) H/O: heart disorder; Translations: [Personal history of other diseases of the circulatory system] Onset: 11-11-2023 11-11-2023 Episodic Other connective tissue disease (5 sources) Pain of toe of right foot; Translations: [Pain in right toe(s)] Episodic Other connective tissue disease (5 sources) Pain of toe of left foot; Translations: [Pain in left toe(s)] Episodic Other connective tissue disease (1 source) Swelling of lower limb; Translations: [Other specified soft tissue disorders] 08-21-2023 Episodic Other connective tissue disease (1 source) Unspecified symptoms and signs involving the nervous system; Translations: [Stroke-like symptoms] Onset: 11-09-2023 Episodic Other connective tissue disease (2 sources) Leg swelling symptom; Translations: [Other specified soft tissue disorders] Onset: 12-12-2023 12-12-2023 Episodic Other gastrointestinal disorders (20 sources) Chronic idiopathic constipation; Translations: [Chronic idiopathic constipation] Onset: 03-28-2022 Chronic Other gastrointestinal disorders (5 sources) Alteration in bowel elimination; Translations: [Change in bowel habit] Episodic Other lower respiratory disease (1 source) Chronic pulmonary edema; Translations: [Chronic pulmonary edema] Chronic Other nutritional; endocrine; and metabolic disorders (20 sources) Obese class I; Translations: [Obesity, unspecified] Onset: 08-09-2018 08-10-2018 Chronic Other upper respiratory disease (20 sources) Chronic rhinitis; Translations: [Chronic rhinitis] Onset: 12-18-2007 10-02-2021 Chronic Other upper respiratory disease (20 sources) Allergic rhinitis; Translations: [Allergic rhinitis, unspecified] Onset: 06-12-2005 Chronic Peripheral and visceral atherosclerosis (20 sources) Peripheral vascular disease, unspecified; Translations: [Peripheral vascular disease, unspecified] Onset: 06-11-2018 08-06-2018 Chronic Residual codes; unclassified (4 sources) Finding of systemic arterial pressure; Translations: [Other general symptoms and signs] Onset: 10-18-2023 10-18-2023 Episodic Substance-related disorders (20 sources) Tobacco user; Translations: [Nicotine dependence, unspecified, uncomplicated] Onset: 06-12-2005 08-10-2018 Chronic Unclassified (1 source) Post Op Onset: 11-25-2023 Past or Other Problems Problem Classification Problem Date Documented Date Episodic/Chronic Deficiency and other anemia (20 sources) Anemia; Translations: [Anemia, unspecified] Onset: 10-25-2014 08-10-2018 Episodic Deficiency and other anemia (1 source) Anemia, unspecified; Translations: [Anemia, unspecified type] Onset: 08-10-2018 Episodic Mycoses (6 sources) Onychomycosis; Translations: [Tinea unguium] Onset: 03-29-2023 Episodic Other connective tissue disease (1 source) Pain in right toe(s); Translations: [Pain in toe of right foot] Onset: 03-29-2023 Episodic Other connective tissue disease (1 source) Pain in left toe(s); Translations: [Pain in toe of left foot] Onset: 03-29-2023 Episodic Other diseases of veins and lymphatics (20 sources) Peripheral venous insufficiency; Translations: [Venous insufficiency (chronic) (peripheral)] Onset: 05-11-2015 08-07-2018 Episodic Other screening for suspected conditions (not mental disorders or infectious disease) (3 sources) Patient encounter status; Translations: [Encounter for screening for other disorder] Onset: 05-22-2023 05-21-2023 Episodic Residual codes; unclassified (7 sources) History of great vessel repair; Translations: [Other specified postprocedural states] Onset: 08-21-2023 08-21-2023 Episodic Residual codes; unclassified (1 source) Other specified postprocedural states; Translations: [S/P aorta repair] Onset: 08-21-2023 Episodic Respiratory failure; insufficiency; arrest (adult) (8 sources) Respiratory failure; Translations: [Respiratory failure, unspecified, unspecified whether with hypoxia or hypercapnia] Onset: 08-21-2023 Episodic Screening and history of mental health and substance abuse codes (8 sources) Ex-smoker; Translations: [Personal history of nicotine dependence] Onset: 08-21-2023 08-21-2023 Episodic Spondylosis; intervertebral disc disorders; other back problems (20 sources) Chronic low back pain; Translations: [Chronic midline low back pain without sciatica] Onset: 04-10-2016 04-10-2016 Episodic Results Test Name Value Interpretation Reference Range Facil ity Vital Signs Date Time Vital Sign Value Performing Clinician Eladio philippe 12-12-2023 09:14-0500 Diastolic blood pressure 66 mm[Hg] Rene Swift MD Work Phone: [facility] 12-12-2023 09:14-0500 Heart rate 65 /min Rene Swift MD Work Phone: [facility] 12-12-2023 09:14-0500 SaO2% (BldA) [Mass fraction] 99 % Rene Swift MD Work Phone: [facility] 12-12-2023 09:14-0500 Systolic blood pressure 135 mm[Hg] Rene Swift MD Work Phone: [facility] 11-25-2023 11:15-0500 Body height 172.7 cm Rene Swift MD Work Phone: [facility] 11-25-2023 11:15-0500 Body weight 88.45 kg Rene Swift MD Work Phone: [facility] 11-25-2023 11:15-0500 Diastolic blood pressure 66 mm[Hg] Rene Swift MD Work Phone: [facility] 11-25-2023 11:15-0500 Heart rate 62 /min Rene Swift MD Work Phone: [facility] 11-25-2023 11:15-0500 Respiratory rate 16 /min Rene Swift MD Work Phone: [facility] 11-25-2023 11:15-0500 Systolic blood pressure 124 mm[Hg] Rene Swift MD Work Phone: [facility] 08-21-2023 13:15-0500 Diastolic blood pressure 52 mm[Hg] Rene Swift MD Work Phone: [facility] 08-21-2023 13:15-0500 Heart rate 46 /min Rene Swift MD Work Phone: [facility] 08-21-2023 13:15-0500 SaO2% (BldA) [Mass fraction] 97 % Rene Swift MD Work Phone: [facility] 08-21-2023 13:15-0500 Systolic blood pressure 124 mm[Hg] Rene Swift MD Work Phone: [facility] 02-05-2023 10:02-0400 Diastolic blood pressure 68 mm[Hg] Eliza Mallory DO Work Phone: [facility] 02-05-2023 10:02-0400 Heart rate 63 /min Eliza Mallory DO Work Phone: [facility] 02-05-2023 10:02-0400 SaO2% (BldA) [Mass fraction] 100 % Eliza Mallory DO Work Phone: [facility] 02-05-2023 10:02-0400 Systolic blood pressure 134 mm[Hg] Eliza Mallory DO Work Phone: [facility] 05-25-2022 16:25-0400 Diastolic blood pressure 67 mm[Hg] Emeka Horn MD Work Phone: [facility] 05-25-2022 16:25-0400 Heart rate 60 /min Emeka Horn MD Work Phone: [facility] 05-25-2022 16:25-0400 Systolic blood pressure 171 mm[Hg] Emeka Horn MD Work Phone: [facility] 05-25-2022 16:05-0400 Body temperature 97.2 [degF] Emeka Horn MD Work Phone: [facility] 05-25-2022 16:05-0400 Body weight 87.54 kg Emeka Horn MD Work Phone: [facility] 05-25-2022 16:05-0400 Respiratory rate 16 /min Emeka Horn MD Work Phone: [facility] 05-25-2022 16:05-0400 SaO2% (BldA) [Mass fraction] 95 % Emeka Horn MD Work Phone: [facility] 05-14-2022 10:51-0400 Body weight 89.36 kg Dominique Reese APRN.LIQUOR GRINDING MILL OPERATOR Work Phone: [facility] 05-14-2022 10:51-0400 Diastolic blood pressure 52 mm[Hg] Dominique Reese APRN.LIQUOR GRINDING MILL OPERATOR Work Phone: [facility] 05-14-2022 10:51-0400 Heart rate 63 /min Dominique Reese ELECTROCARDIOGRAPH OPERATOR.LIQUOR GRINDING MILL OPERATOR Work Phone: [facility] 05-14-2022 10:51-0400 Respiratory rate 16 /min Dominique Reese ELECTROCARDIOGRAPH OPERATOR.LIQUOR GRINDING MILL OPERATOR Work Phone: [facility] 05-14-2022 10:51-0400 SaO2% (BldA) [Mass fraction] 96 % Dominique Reese ELECTROCARDIOGRAPH OPERATOR.LIQUOR GRINDING MILL OPERATOR Work Phone: [facility] 05-14-2022 10:51-0400 Systolic blood pressure 138 mm[Hg] Dominique Reese ELECTROCARDIOGRAPH OPERATOR.LIQUOR GRINDING MILL OPERATOR Work Phone: [facility] 04-26-2022 13:02-0400 Body height 177.8 cm Colton Mendez MD Work Phone: [facility] 04-26-2022 13:02-0400 Body temperature 97.2 [degF] Colton Mendez MD Work Phone: [facility] 04-26-2022 13:02-0400 Body weight 88 kg Colton Mendez MD Work Phone: [facility] 04-26-2022 13:02-0400 Diastolic blood pressure 60 mm[Hg] Colton Mendez MD Work Phone: [facility] 04-26-2022 13:02-0400 Heart rate 78 /min Colton Mendez MD Work Phone: [facility] 04-26-2022 13:02-0400 Respiratory rate 20 /min Colton Mendez MD Work Phone: [facility] 04-26-2022 13:02-0400 SaO2% (BldA) [Mass fraction] 95 % Colton Mendez MD Work Phone: [facility] 04-26-2022 13:02-0400 Systolic blood pressure 124 mm[Hg] Colton Mendez MD Work Phone: [facility] 04-12-2022 10:33-0400 Body weight 87.54 kg Dominique Reese ELECTROCARDIOGRAPH OPERATOR.LIQUOR GRINDING MILL OPERATOR Work Phone: [facility] 04-12-2022 10:33-0400 Diastolic blood pressure 58 mm[Hg] Dominique Reese ELECTROCARDIOGRAPH OPERATOR.LIQUOR GRINDING MILL OPERATOR Work Phone: [facility] 04-12-2022 10:33-0400 Heart rate 60 /min Dominique Reese ELECTROCARDIOGRAPH OPERATOR.LIQUOR GRINDING MILL OPERATOR Work Phone: [facility] 04-12-2022 10:33-0400 Respiratory rate 16 /min Dominique Reese ELECTROCARDIOGRAPH OPERATOR.LIQUOR GRINDING MILL OPERATOR Work Phone: [facility] 04-12-2022 10:33-0400 SaO2% (BldA) [Mass fraction] 96 % Dominique Reese ELECTROCARDIOGRAPH OPERATOR.LIQUOR GRINDING MILL OPERATOR Work Phone: [facility] 04-12-2022 10:33-0400 Systolic blood pressure 122 mm[Hg] Dominique Reese ELECTROCARDIOGRAPH OPERATOR.LIQUOR GRINDING MILL OPERATOR Work Phone: [facility] 03-28-2022 13:19-0400 Body temperature 97 [degF] Emeka Horn MD Work Phone: [facility] 03-28-2022 13:19-0400 Body weight 88.18 kg Emeka Horn MD Work Phone: [facility] 03-28-2022 13:19-0400 Diastolic blood pressure 58 mm[Hg] Emeka Horn MD Work Phone: [facility] 03-28-2022 13:19-0400 Heart rate 60 /min Emeka Horn MD Work Phone: [facility] 03-28-2022 13:19-0400 Respiratory rate 18 /min Emeka Horn MD Work Phone: [facility] 03-28-2022 13:19-0400 Systolic blood pressure 136 mm[Hg] Emeka Horn MD Work Phone: [facility] 02-07-2022 10:00-0400 Diastolic blood pressure 64 mm[Hg] Samantha Aguirre ELECTROCARDIOGRAPH OPERATOR.RAILROAD SIGNAL TECHNICIAN Work Phone: [facility] 02-07-2022 10:00-0400 Systolic blood pressure 132 mm[Hg] Samantha Older ELECTROCARDIOGRAPH OPERATOR.RAILROAD SIGNAL TECHNICIAN Work Phone: [facility] 02-07-2022 09:39-0400 Body weight 93.44 kg Samantha Older ELECTROCARDIOGRAPH OPERATOR.RAILROAD SIGNAL TECHNICIAN Work Phone: [facility] 02-07-2022 09:39-0400 Heart rate 60 /min Samantha Older ELECTROCARDIOGRAPH OPERATOR.RAILROAD SIGNAL TECHNICIAN Work Phone: [facility] 02-07-2022 09:39-0400 Respiratory rate 22 /min Samantha Older ELECTROCARDIOGRAPH OPERATOR.RAILROAD SIGNAL TECHNICIAN Work Phone: [facility] 02-07-2022 09:39-0400 SaO2% (BldA) [Mass fraction] 96 % Samantha Older ELECTROCARDIOGRAPH OPERATOR.RAILROAD SIGNAL TECHNICIAN Work Phone: [facility] 01-09-2022 09:11-0400 Diastolic blood pressure 72 mm[Hg] Eliza Mallory DO Work Phone: [facility] 01-09-2022 09:11-0400 Systolic blood pressure 160 mm[Hg] Eliza Mallory DO Work Phone: [facility] 01-09-2022 09:08-0400 Body height 170.2 cm Eliza Mallory DO Work Phone: [facility] 01-09-2022 09:08-0400 Body weight 93.89 kg Eliza Mallory DO Work Phone: [facility] 01-09-2022 09:08-0400 Heart rate 62 /min Eliza Mallory DO Work Phone: [facility] 01-09-2022 09:08-0400 SaO2% (BldA) [Mass fraction] 97 % Eliza Mallory DO Work Phone: [facility] Encounters Encounter Date Encounter Type Care Provider Facility Start: 12-12-2023 End: 12-12-2023 ambulatory RIAZ G MELI Facility:[facility] Start: 12-12-2023 End: 12-12-2023 Patient encounter procedure Rene Swift MD Work Phone: Vascular Surgery Procedures Date Procedure Procedure Detail Performing Clinician Start: 11-05-2023 Antibody screen RENE TO Plan of Treatment Date Care Activity Detail Author Start: 11-12-2024 Hepatitis B surface antibody level LDL Cholesterol [facility] Start: 06-13-2024 End: 12-11-2024 US Lower extremity artery - bilateral [facility] V[facility] Lab Routine Peripheral arterial disease (HCC) Expected: 06/13/2024, Expires: 12/11/2024 [facility] Work Phone: Immunizations Immunization Date Immunization Notes Care Provider Fa ekta 06-26-2023 influenza (HD-IIV4) vaccine, age 65+ yr, high dose, quadrivalent, PF (FLUZONE HIGH-DOSE) Rene Swift MD Work Phone: [facility] 07-24-2022 influenza (HD-IIV4) vaccine, age 65+ yr, high dose, quadrivalent, PF (FLUZONE HIGH-DOSE) Rene Swift MD Work Phone: [facility] 08-07-2021 COVID-19 vaccine, ag e 12+ yr (PFIZER-BIONTECH - PURPLE TOP) Eliza Mallory DO Work Phone: [facility] Work Phone: 06-28-2021 influenza, high dose seasonal, preservative-free Eliza Mallory DO Work Phone: [facility] Work Phone: 11-23-2020 COVID-19 vaccine, ag e 12+ yr (PFIZER-BIONTECH - PURPLE TOP) Eliza Mallory DO Work Phone: [facility] Work Phone: 11-02-2020 COVID-19 vaccine, ag e 12+ yr (PFIZER-BIONTECH - PURPLE TOP) Eliza Mallory DO Work Phone: [facility] 10-10-2020 zoster vaccine recombinant Eliza Mallory DO Work Phone: [facility] Work Phone: 08-02-2020 zoster vaccine recombinant Eliza Mallory DO Work Phone: [facility] Work Phone: 07-25-2020 influenza, high-dose , quadrivalent vaccine (FLUZONE HIGH DOSE QUADRIVALENT) Eliza Mallory DO Work Phone: [facility] Work Phone: 07-25-2020 pneumococcal polysaccharide vaccine, 23 valent Eliza Mallory DO Work Phone: [facility] Work Phone: 06-23-2019 influenza, high dose seasonal, preservative-free Eliza Mallory DO Work Phone: [facility] Work Phone: 07-18-2018 influenza, high dose seasonal, preservative-free Eliza Mallory DO Work Phone: [facility] 07-06-2017 influenza, high dose seasonal, preservative-free Eliza Mallory DO Work Phone: [facility] 08-13-2016 influenza, injectabl e, quadrivalent, contains preservative Eliza Mallory DO Work Phone: [facility] Work Phone: 08-13-2016 influenza, injectabl e, quadrivalent, preservative free Rene Swift MD Work Phone: [facility] 10-11-2015 influenza, high dose seasonal, preservative-free Eliza Mallory DO Work Phone: [facility] 05-11-2015 pneumococcal conjuga te vaccine, 13 valent Eliza Mallory DO Work Phone: [facility] 07-23-2013 influenza virus vacc ine, whole virus Eliza Mallory DO Work Phone: [facility] Work Phone: 07-03-2012 influenza virus vacc ine, unspecified formulation Eliza Mallory DO Work Phone: [facility] Work Phone: 06-25-2011 influenza virus vacc ine, unspecified formulation Eliza Mallory DO Work Phone: [facility] Work Phone: 08-04-2010 influenza virus vacc ine, unspecified formulation Eliza Mallory DO Work Phone: [facility] Work Phone: 10-05-2009 novel influenza-H1N1 -09, preservative-free, injectable Eliza Mallory DO Work Phone: [facility] Work Phone: 07-19-2009 influenza virus vacc ine, unspecified formulation Eliza Mallory DO Work Phone: [facility] 06-30-2008 pneumococcal polysaccharide vaccine, 23 valent Eliza Mallory DO Work Phone: [facility] Work Phone: 08-06-2007 influenza virus vacc ine, unspecified formulation Eliza Mallory DO Work Phone: [facility] Work Phone: 06-12-2007 tetanus and diphther ia toxoids, adsorbed, preservative free, for adult use (2 Lf of tetanus toxoid and 2 Lf of diphtheria toxoid) Eliza Mallory DO Work Phone: [facility] Work Phone: 08-12-2003 pneumococcal polysaccharide vaccine, 23 valent Eliza Mallory DO Work Phone: [facility] Work Phone: Payers Date Payer Category Payer Medicare [employer] [place] [employer] [id number] 2007-Present [phone] [address] [place] [address] [facility] [id number] 2007 Medicare [id number] 2007 Medicare [id number] Social History Date Type Detail Facility Start: 05-14-2022 Tobacco smoking status NHIS Ex-smoker [facility] End: 02-05-2008 History of tobacco use Current smoker [facility] End: 02-05-2008 History of tobacco use Cigarette Smoker [facility] End: 02-05-2008 History of tobacco use Cigar Smoker [facility] Start: 10-12-2021 End: 12-12-2023 Alcohol intake Current drinker of alcohol (finding) [facility] Start: 08-31-2020 End: 08-10-2021 History SDOH Alcohol Frequency [address] [facility] Start: 08-31-2020 End: 12-21-2020 History SDOH Alcohol Std Drinks [address] [facility] Start: 02-12-2011 History SDOH Alcohol Comment Rare [facility] Start: 02-16-2020 End: 07-19-2020 History SDOH Social Connections Meetings [address] [facility] Start: 02-16-2020 End: 07-19-2020 History SDOH Physical Activity DPW [address] [facility] Start: 09-30-2019 Education [address] [facility] Start: 1935 Sex Assigned At Male [facility] Start: 12-04-2021 End: 09-06-2022 Exposure to SARS-CoV-2 (event) Not sure [facility] Start: 05-14-2022 End: 03-29-2023 Cigarettes smoked current (pack per day) - Reported 0.[address] [facility] Start: 05-14-2022 Tobacco use and exposure Smokeless tobacco non-user [facility] Work Phone: Start: 02-16-2020 End: 03-29-2023 Social connection and isolation panel [facility] Do you belong to any clubs or organizations such as taoism groups, unions, fraternal or athletic groups, or school groups? Yes [facility] Are you now , , , , never or living with a partner? [facility] How often to you hav e a drink containing alcohol? Monthly or less [facility] How many standard dr inks containing alcohol do you have on a typical day? 1 or [address] [facility] How often do you hav e 6 or more drinks on 1 occasion? Never [facility] How hard is it for y ou to pay for the very basics like food, housing, medical care, and heating Not very hard [facility] Adult Depression Screening Assessment [address] [facility] Do you feel stress - tense, restless, nervous, or anxious, or unable to sleep at night because your mind is troubled all the time - these days [OSQ] To some extent [facility] (I/We) worried wheth er (my/our) food would run out before (I/we) got money to buy more. Never true [facility] In the past 12 month s, was there a time when you were not able to pay the mortgage or rent on time? No [facility] Start: 07-02-2019 Gender identity Identifies as male gender (finding) [facility] Start: 02-17-2020 Sexual orientation Heterosexual (finding) [facility] Work Phone: Medical Equipment Procedure Code Equipment Code Equipment Original Text Equipment Identifier Dates Patch Vascu-Guar d Taper Bovine Pericardial 8x.8cm [facility] - [id number] Start: 08-05-2018 Clinical Notes 05-11-2015 to 12-12-2023 Rene Swift MD - 12/12/2023 9:49 AM Rene House MD - 11/25/2023 5:39 PM ESTTelephone Encounter - Jessica Bentley LPN - 11/22/2023 10:02 AM Rene House MD - 08/21/2023 1:20 PM EST Note Date & Type Note Facility 12-12-2023 Note HNO ID: [id number] Author: RENE SWIFT MD Service: ? Author Type: Physician Type: Progress Notes Filed: 12/12/2023 13:45 Note Text: Surgery/Procedure Date: 11/12/2023 Surgeon(s)/Proceduralist(s) and Big Data Developer(s): Surgeon(s) and Role: * Rene Swift MD - Primary * Remberto Nunn MD - Resident - Assisting Procedure(s): Left ileofemoral endarterectomy and bovine patch profundaplasty Left lower extremity angiogram Intraoperative duplex ultrasound of patch repair [facility] VISIT Woody Hernandes [id number] HPI: Mr. Hernandes is a 88 year old male seen in clinic today for follow up s/p left iliofemoral reconstruction for peripheral vascular disease with rest pain. Last seen on 11/25/2023. No new complaints, he continues to recover well, no rest pain or claudication type symptoms. Incision clean dry and intact. Vascular health status: Anti-platelet/anticoagulation: yes Statin or PCSK9i: yes Past Vascular Surgeries: 08/21/2018 Right common femoral and profunda endarterectomy. Recent Surgeries this specialty 11/12/2023 (4w, 2d) THROMBOENDARTERECTOMY,W/ PATCH GRAFT; ILIOFEMORAL (Left) Rene Swift MD; Remberto Nunn MD - Posted 09/06/2023 (3mo) ANGIOGRAM EXTREMITY UNILATERAL RADIOLOGICAL (Left) Rene Swift MD - Posted MEDICATIONS: senna-docusate (SENNA-S) 8.6-50 mg per tablet Take 1 tablet by mouth two times a day. SEMGLEE,INSULIN GLARG-YFGN,PEN 100 unit/mL (3 mL) insulin pen INJECT 15 units SUBCUTANEOUSLY EVERY DAY IN THE MORNING UNIFINE PENTIPS 31 gauge x 1/4 ndle once daily. insulin glargine (LANTUS SOLOSTAR U-100 INSULIN) 100 unit/mL (3 mL) amLODIPine (NORVASC) 10 mg tablet Take 10 mg by mouth once daily. spironolactone (ALDACTONE) 25 mg tablet Take 25 mg by mouth once daily. ipratropium-albuterol (DUONEB) 0.5 mg-3 mg(2.5 mg base)/3 mL nebu 4 TIMES DAILY NEEDED furosemide (LASIX) 40 mg tablet Take 40 mg by mouth once daily. carvedilol (COREG) 25 mg tablet Take 1 tablet by mouth twice daily. Dr. Pierre. hydrALAZINE (APRESOLINE) 100 mg tablet Take 1 tablet by mouth three times daily. Dr. Pierre. rOPINIRole (REQUIP) 0.5 mg tablet Take 1-3 tablets by mouth at bedtime as needed. Dr. Rivero acetaminophen (TYLENOL) 500 mg tablet Take 500 mg by mouth every 8 hours as needed. albuterol HFA (PROVENTIL HFA, VENTOLIN HFA) 90 mcg/actuation inhaler Inhale 2 Puffs as instructed. montelukast (SINGULAIR) 10 mg tablet TAKE 1 TABLET BY MOUTH DAILY AT BEDTIME. FOR NASAL ALLERGIES. isosorbide mononitrate ER (IMDUR) 30 mg 24 hr tablet Take 1 tablet by mouth once daily. pantoprazole DR (PROTONIX) 40 mg tablet TAKE 1 TABLET BY MOUTH DAILY BEFORE BREAKFAST. TAKE ON EMPTY STOMACH, 1/2 HR BEFORE MEAL. coenzyme Q10 (COENZYME Q-10) 100 mg cap capsule 100 mg once daily. ascorbic acid, vitamin C, (VITAMIN C) 500 mg tablet Take 500 mg by mouth once daily. blood sugar diagnostic (BLOOD GLUCOSE TEST) test strip Test blood sugar(s) 2 times daily. Dx: Type 2 DM - Uncontrolled E11.65 Insulin: No cholecalciferol, vitamin D3, (VITAMIN D3 ORAL) Take 4,000 Units by mouth once daily. ipratropium bromide (ATROVENT) 42 mcg (0.06 %) nasal spray Use 2 Sprays in the nose four times daily. loratadine 10 mg cap Take by mouth once daily. triamcinolone acetonide (NASACORT AQ) 55 mcg nasal inhaler Use 2 Sprays in the nose once daily. atorvastatin (LIPITOR) 40 mg tablet Take 1 tablet by mouth every other day. At bedtime for cholesterol. nitroglycerin sublingual (NITROSTAT) 0.4 mg SL tablet Dissolve 1 tablet under the tongue every 5 minutes as needed for Chest Pain. Aspirin 81 mg ORAL Tab Take 1 tablet by mouth once daily. Take with food. meclizine (ANTIVERT) 25 mg tab meclizine hydrochloride 25 mg oral tablet (4 sources) Antiemetic Start: 09-13-2023 (Patient not taking: Reported on 11/25/2023) clopidogrel (PLAVIX) 75 mg tablet Take 1 tablet by mouth once daily. (Patient not taking: Reported on 11/25/2023) AMMONIUM LACTATE TOPICAL Apply to affected area as needed. Lotion (Patient not taking: Reported on 11/25/2023) dapagliflozin propanediol (FARXIGA) 10 mg tablet Take 10 mg by mouth daily with breakfast. (Patient not taking: Reported on 11/25/2023) metFORMIN (GLUCOPHAGE) 850 mg tablet Take 1 tablet by mouth twice daily with meals. 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 [facility] 12-12-2023 History of Presen t illness Narrative Images from the original note were not included. Surgery/Procedure Date: 11/12/2023 Surgeon(s)/Proceduralist(s) and Big Data Developer(s): Surgeon(s) and Role: * Rene Swift MD - Primary * Remberto Nunn MD - Resident - Assisting Procedure(s): Left ileofemoral endarterectomy and bovine patch profundaplasty Left lower extremity angiogram Intraoperative duplex ultrasound of patch repair [facility] VISIT Woody Hernandes [id number] HPI: Mr. Hernandes is a 88 year old male seen in clinic today for follow up s/p left iliofemoral reconstruction for peripheral vascular disease with rest pain. Last seen on 11/25/2023. No new complaints, he continues to recover well, no rest pain or claudication type symptoms. Incision clean dry and intact. Vascular health status: Anti-platelet/anticoagulation: yes Statin or PCSK9i: yes Past Vascular Surgeries: 08/21/2018 Right common femoral and profunda endarterectomy. Recent Surgeries this specialty 11/12/2023 (4w, 2d) THROMBOENDARTERECTOMY,W/ PATCH GRAFT; ILIOFEMORAL (Left) Rene Swift MD; Remberto Nunn MD - Posted 09/06/2023 (3mo) ANGIOGRAM EXTREMITY UNILATERAL RADIOLOGICAL (Left) Rene Swift MD - Posted MEDICATIONS: senna-docusate (SENNA-S) 8.6-50 mg per tablet Take 1 tablet by mouth two times a day. SEMGLEE,INSULIN GLARG-YFGN,PEN 100 unit/mL (3 mL) insulin pen INJECT 15 units SUBCUTANEOUSLY EVERY DAY IN THE MORNING UNIFINE PENTIPS 31 gauge x 1/4 ndle once daily. insulin glargine (LANTUS SOLOSTAR U-100 INSULIN) 100 unit/mL (3 mL) amLODIPine (NORVASC) 10 mg tablet Take 10 mg by mouth once daily. spironolactone (ALDACTONE) 25 mg tablet Take 25 mg by mouth once daily. ipratropium-albuterol (DUONEB) 0.5 mg-3 mg(2.5 mg base)/3 mL nebu 4 TIMES DAILY NEEDED furosemide (LASIX) 40 mg tablet Take 40 mg by mouth once daily. carvedilol (COREG) 25 mg tablet Take 1 tablet by mouth twice daily. Dr. Pierre. hydrALAZINE (APRESOLINE) 100 mg tablet Take 1 tablet by mouth three times daily. Dr. Pierre. rOPINIRole (REQUIP) 0.5 mg tablet Take 1-3 tablets by mouth at bedtime as needed. Dr. Rivero acetaminophen (TYLENOL) 500 mg tablet Take 500 mg by mouth every 8 hours as needed. albuterol HFA (PROVENTIL HFA, VENTOLIN HFA) 90 mcg/actuation inhaler Inhale 2 Puffs as instructed. montelukast (SINGULAIR) 10 mg tablet TAKE 1 TABLET BY MOUTH DAILY AT BEDTIME. FOR NASAL ALLERGIES. isosorbide mononitrate ER (IMDUR) 30 mg 24 hr tablet Take 1 tablet by mouth once daily. pantoprazole DR (PROTONIX) 40 mg tablet TAKE 1 TABLET BY MOUTH DAILY BEFORE BREAKFAST. TAKE ON EMPTY STOMACH, 1/2 HR BEFORE MEAL. coenzyme Q10 (COENZYME Q-10) 100 mg cap capsule 100 mg once daily. ascorbic acid, vitamin C, (VITAMIN C) 500 mg tablet Take 500 mg by mouth once daily. blood sugar diagnostic (BLOOD GLUCOSE TEST) test strip Test blood sugar(s) 2 times daily. Dx: Type 2 DM - Uncontrolled E11.65 Insulin: No cholecalciferol, vitamin D3, (VITAMIN D3 ORAL) Take 4,000 Units by mouth once daily. ipratropium bromide (ATROVENT) 42 mcg (0.06 %) nasal spray Use 2 Sprays in the nose four times daily. loratadine 10 mg cap Take by mouth once daily. triamcinolone acetonide (NASACORT AQ) 55 mcg nasal inhaler Use 2 Sprays in the nose once daily. atorvastatin (LIPITOR) 40 mg tablet Take 1 tablet by mouth every other day. At bedtime for cholesterol. nitroglycerin sublingual (NITROSTAT) 0.4 mg SL tablet Dissolve 1 tablet under the tongue every 5 minutes as needed for Chest Pain. Aspirin 81 mg ORAL Tab Take 1 tablet by mouth once daily. Take with food. meclizine (ANTIVERT) 25 mg tab meclizine hydrochloride 25 mg oral tablet (4 sources) Antiemetic Start: 09-13-2023 (Patient not taking: Reported on 11/25/2023) clopidogrel (PLAVIX) 75 mg tablet Take 1 tablet by mouth once daily. (Patient not taking: Reported on 11/25/2023) AMMONIUM LACTATE TOPICAL Apply to affected area as needed. Lotion (Patient not taking: Reported on 11/25/2023) dapagliflozin propanediol (FARXIGA) 10 mg tablet Take 10 mg by mouth daily with breakfast. (Patient not taking: Reported on 11/25/2023) metFORMIN (GLUCOPHAGE) 850 mg tablet Take 1 tablet by mouth twice daily with meals. 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 Abnormal ankle brachial index (MELISSA) 10/18/2023 Adjustment disorder with depressed mood 02/09/2009 Aneurysm of iliac artery (HCC) repaired 1998 Aorto-iliac atherosclerosis (HCC) (HCC) 08/21/2023 Atherosclerosis of inupiat artery of both lower extremities with intermittent claudication (HCC) 08/21/2023 Atherosclerosis of inupiat artery of left lower extremity with rest pain (HCC) 10/18/2023 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 Hilliard. Coronary atherosclerosis of unspecified type of vessel, inupiat or graft 06/13/2005 Diverticulitis of colon (without mention of hemorrhage)(562.11) 06/12/2005 Former smoker 08/21/2023 Heart attack (HCC) Hypertrophy of prostate without urinary obstruction and other lower urinary tract symptoms (LUTS) 06/12/2005 Memory disturbance 07/24/2010 Mitral valve disorders(424.0) 06/12/2005 Other and unspecified hyperlipidemia 06/13/2005 Other specified disorders of arteries and arterioles (HCC) 06/12/2005 Peripheral vascular disease, unspecified (HCC) 06/12/2005 Personal history of colonic polyps 06/13/2005 Tubular adenoma. 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) Tobacco use disorder 06/12/2005 Type II or unspecified type diabetes mellitus without mention of complication, not stated as uncontrolled 01/24/2011 Unspecified essential hypertension 06/12/2005 Venous insufficiency (chronic) (peripheral) 05/11/2015 PAST SURGICAL HISTORY: PAST SURGICAL HISTORY Procedure Laterality Date APPENDECTOMY DONE W/OTHR MAJOR SURGERY 1998 With inguinal hernia repair [facility] INCL FLUOR GDNCE DX W/CELL WASHG SPX 09/12/2007 Bronchoscopy COLONOSCOPY FLX DX W/COLLJ SPEC WHEN PFRMD 01/2003 Colonoscopy COLONOSCOPY FLX DX W/COLLJ SPEC WHEN PFRMD 02/2005 Colonoscopy COLONOSCOPY FLX DX W/COLLJ SPEC WHEN PFRMD 12/05/2015 Colonoscopy COLSC FLX W/RMVL OF TUMOR POLYP LESION SNARE TQ 08/25/2010 Distal transverse polyp/diverticular dz CYSTOURETHROSCOPY 06/14/2004 Cystoscopy DIR RPR ANEURYSM ABDOMINAL AORTA 11/11/1998 Abd Aortic Aneurysm Repair INSERT INTRACORONARY STENT 1997 right MCA INTRODUCTION CATHETER AORTA 07/25/2010 APLL LEFT HEART CATH,PERCUTANEOUS 01/09/2012 Cardiac cath, L heart LEFT HEART CATH,PERCUTANEOUS 03/29/2014 Cardiac cath, L heart LITHOTRIPSY XTRCORP SHOCK WAVE 06/14/2004 Lithotripsy OPEN TX CLAVICULAR FRACTURE INTERNAL FIXATION 1984 right clavicle PAST SURGICAL HISTORY OF 11/12/2023 Left ileofemoral endarterectomy and bovine patch profundaplasty/ Left lower extremity angiogram/ Intraoperative duplex ultrasound of patch repair RPR 1ST INGUN HRNA AGE 5 YRS/> REDUCIBLE 05/05/1999 Hernia repair, inguinal TEAEC W/WO PATCH GRAFT DEEP PROFUNDA FEMORAL Right 08/05/2018 TRANSCATH STENT ADDN VESSEL,PERCUT 02/17/2008 Transcath stent addn vessel percut. Mid and distal RCA. TRANSCATH STENT INIT VESSEL,PERCUT 02/17/2008 Transcath stent init vessel percut, Prox. RCA. TRANSURETHRAL ELEC-SURG PROSTATECTOM 03/07/2022 ALLERGIES: ALLERGIES Allergen Reactions Levaquin [Levofloxa* Hives Felodipine Rash Pletal [Cilostazol] Itching Sulfa (Sulfonamide * Itching Targeted ROS Comprehensive system review of systems did not reveal any pertinent positives or negatives except per HPI PHYSICAL EXAM: Focused Physical Exam: BP 135/66 Pulse 65 SpO2 99% General: WDWN in NAD Pulmonary: Non-labored on RA Coronary: Regular rate, no GARCIA or JVD Extremities: Normal range of motion, trace bilateral lower extremity edema no wounds Vascular: Palpable left femoral, biphasic left DP PT Incision: clean, dry, incision intact. No s/s of acute infection or hematoma. DIAGNOSTIC TESTS REVIEWED FOR TODAY'S VISIT: Most recent labs and imaging results Assessment/Plan Woody Hernandes is a 88 year old male now s/p left iliofemoral reconstruction with resolution of left lower extremity rest pain. Incision healing well without obvious complication. - Follow-up in 6 months with PVRs - Continue cardiovascular risk factor modification with blood pressure control and asa/statin therapy as tolerated at the direction of MD Rene Ramírez MD Vascular Surgery Staff 12/12/2023 With PVRs documented in this encounter [facility] 11-25-2023 Note HNO ID: [id number] Author: RENE SWIFT MD Service: ? Author Type: Physician Type: Progress Notes Filed: 11/25/2023 17:50 Note Text: Surgery/Procedure Date: 11/12/2023 Surgeon(s)/Proceduralist(s) and Big Data Developer(s): Surgeon(s) and Role: * Rene Swift MD - Primary * Remberto Nunn MD - Resident - Assisting Procedure(s): Left ileofemoral endarterectomy and bovine patch profundaplasty Left lower extremity angiogram Intraoperative duplex ultrasound of patch repair [facility] EST[facility] VISIT Woody Hernandes [id number] HPI: Mr. Hernandes is a 88 year old male seen in clinic today for follow up s/p left iliofemoral reconstruction 2 weeks ago. States that the pain in his left foot has resolved. Occasionally has pain with ambulation which sounds like his neuropathy. He denies any rest pain at this time. His incision is healing well no erythema tenderness or drainage with skin edges well-approximated. I am very happy with his postoperative waveforms as documented on his PVRs from 11/13/2023. Past Vascular Surgeries: Recent Surgeries this specialty 11/12/2023 (1w, 6d) THROMBOENDARTERECTOMY,W/ PATCH GRAFT; ILIOFEMORAL (Left) Rene Swift MD; Remberto Nunn MD - Posted 09/06/2023 (11w, 3d) ANGIOGRAM EXTREMITY UNILATERAL RADIOLOGICAL (Left) Rene Swift MD - Posted MEDICATIONS: senna-docusate (SENNA-S) 8.6-50 mg per tablet Take 1 tablet by mouth two times a day. SEMGLEE,INSULIN GLARG-YFGN,PEN 100 unit/mL (3 mL) insulin pen INJECT 15 units SUBCUTANEOUSLY EVERY DAY IN THE MORNING UNIFINE PENTIPS 31 gauge x 1/4 ndle once daily. insulin glargine (LANTUS SOLOSTAR U-100 INSULIN) 100 unit/mL (3 mL) amLODIPine (NORVASC) 10 mg tablet Take 10 mg by mouth once daily. spironolactone (ALDACTONE) 25 mg tablet Take 25 mg by mouth once daily. ipratropium-albuterol (DUONEB) 0.5 mg-3 mg(2.5 mg base)/3 mL nebu 4 TIMES DAILY NEEDED furosemide (LASIX) 40 mg tablet Take 40 mg by mouth once daily. carvedilol (COREG) 25 mg tablet Take 1 tablet by mouth twice daily. Dr. Pierre. hydrALAZINE (APRESOLINE) 100 mg tablet Take 1 tablet by mouth three times daily. Dr. Pierre. rOPINIRole (REQUIP) 0.5 mg tablet Take 1-3 tablets by mouth at bedtime as needed. Dr. Rivero acetaminophen (TYLENOL) 500 mg tablet Take 500 mg by mouth every 8 hours as needed. albuterol HFA (PROVENTIL HFA, VENTOLIN HFA) 90 mcg/actuation inhaler Inhale 2 Puffs as instructed. montelukast (SINGULAIR) 10 mg tablet TAKE 1 TABLET BY MOUTH DAILY AT BEDTIME. FOR NASAL ALLERGIES. isosorbide mononitrate ER (IMDUR) 30 mg 24 hr tablet Take 1 tablet by mouth once daily. pantoprazole DR (PROTONIX) 40 mg tablet TAKE 1 TABLET BY MOUTH DAILY BEFORE BREAKFAST. TAKE ON EMPTY STOMACH, 1/2 HR BEFORE MEAL. coenzyme Q10 (COENZYME Q-10) 100 mg cap capsule 100 mg once daily. ascorbic acid, vitamin C, (VITAMIN C) 500 mg tablet Take 500 mg by mouth once daily. blood sugar diagnostic (BLOOD GLUCOSE TEST) test strip Test blood sugar(s) 2 times daily. Dx: Type 2 DM - Uncontrolled E11.65 Insulin: No cholecalciferol, vitamin D3, (VITAMIN D3 ORAL) Take 4,000 Units by mouth once daily. ipratropium bromide (ATROVENT) 42 mcg (0.06 %) nasal spray Use 2 Sprays in the nose four times daily. loratadine 10 mg cap Take by mouth once daily. triamcinolone acetonide (NASACORT AQ) 55 mcg nasal inhaler Use 2 Sprays in the nose once daily. atorvastatin (LIPITOR) 40 mg tablet Take 1 tablet by mouth every other day. At bedtime for cholesterol. nitroglycerin sublingual (NITROSTAT) 0.4 mg SL tablet Dissolve 1 tablet under the tongue every 5 minutes as needed for Chest Pain. Aspirin 81 mg ORAL Tab Take 1 tablet by mouth once daily. Take with food. meclizine (ANTIVERT) 25 mg tab meclizine hydrochloride 25 mg oral tablet (4 sources) Antiemetic Start: 09-13-2023 (Patient not taking: Reported on 11/25/2023) clopidogrel (PLAVIX) 75 mg tablet Take 1 tablet by mouth once daily. (Patient not taking: Reported on 11/25/2023) AMMONIUM LACTATE TOPICAL Apply to affected area as needed. Lotion (Patient not taking: Reported on 11/25/2023) dapagliflozin propanediol (FARXIGA) 10 mg tablet Take 10 mg by mouth daily with breakfast. (Patient not taking: Reported on 11/25/2023) metFORMIN (GLUCOPHAGE) 850 mg tablet Take 1 tablet by mouth twice daily with meals. 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 [facility] 11-25-2023 History of Presen t illness Narrative Images from the original note were not included. Surgery/Procedure Date: 11/12/2023 Surgeon(s)/Proceduralist(s) and Big Data Developer(s): Surgeon(s) and Role: * Rene Swift MD - Primary * Remberto Nunn MD - Resident - Assisting Procedure(s): Left ileofemoral endarterectomy and bovine patch profundaplasty Left lower extremity angiogram Intraoperative duplex ultrasound of patch repair [facility] VISIT Woody Hernandes [phone] HPI: Mr. Hernandes is a 88 year old male seen in clinic today for follow up s/p left iliofemoral reconstruction 2 weeks ago. States that the pain in his left foot has resolved. Occasionally has pain with ambulation which sounds like his neuropathy. He denies any rest pain at this time. His incision is healing well no erythema tenderness or drainage with skin edges well-approximated. I am very happy with his postoperative waveforms as documented on his PVRs from 11/13/2023. Past Vascular Surgeries: Recent Surgeries this specialty 11/12/2023 (1w, 6d) THROMBOENDARTERECTOMY,W/ PATCH GRAFT; ILIOFEMORAL (Left) Rene Swift MD; Remberto Nunn MD - Posted 09/06/2023 (11w, 3d) ANGIOGRAM EXTREMITY UNILATERAL RADIOLOGICAL (Left) Rene Swift MD - Posted MEDICATIONS: senna-docusate (SENNA-S) 8.6-50 mg per tablet Take 1 tablet by mouth two times a day. SEMGLEE,INSULIN GLARG-YFGN,PEN 100 unit/mL (3 mL) insulin pen INJECT 15 units SUBCUTANEOUSLY EVERY DAY IN THE MORNING UNIFINE PENTIPS 31 gauge x / ndle once daily. insulin glargine (LANTUS SOLOSTAR U-100 INSULIN) 100 unit/mL (3 mL) amLODIPine (NORVASC) 10 mg tablet Take 10 mg by mouth once daily. spironolactone (ALDACTONE) 25 mg tablet Take 25 mg by mouth once daily. ipratropium-albuterol (DUONEB) 0.5 mg-3 mg(2.5 mg base)/3 mL nebu 4 TIMES DAILY NEEDED furosemide (LASIX) 40 mg tablet Take 40 mg by mouth once daily. carvedilol (COREG) 25 mg tablet Take 1 tablet by mouth twice daily. Dr. Pierre. hydrALAZINE (APRESOLINE) 100 mg tablet Take 1 tablet by mouth three times daily. Dr. Pierre. rOPINIRole (REQUIP) 0.5 mg tablet Take 1-3 tablets by mouth at bedtime as needed. Dr. Rivero acetaminophen (TYLENOL) 500 mg tablet Take 500 mg by mouth every 8 hours as needed. albuterol HFA (PROVENTIL HFA, VENTOLIN HFA) 90 mcg/actuation inhaler Inhale 2 Puffs as instructed. montelukast (SINGULAIR) 10 mg tablet TAKE 1 TABLET BY MOUTH DAILY AT BEDTIME. FOR NASAL ALLERGIES. isosorbide mononitrate ER (IMDUR) 30 mg 24 hr tablet Take 1 tablet by mouth once daily. pantoprazole DR (PROTONIX) 40 mg tablet TAKE 1 TABLET BY MOUTH DAILY BEFORE BREAKFAST. TAKE ON EMPTY STOMACH, 1/2 HR BEFORE MEAL. coenzyme Q10 (COENZYME Q-10) 100 mg cap capsule 100 mg once daily. ascorbic acid, vitamin C, (VITAMIN C) 500 mg tablet Take 500 mg by mouth once daily. blood sugar diagnostic (BLOOD GLUCOSE TEST) test strip Test blood sugar(s) 2 times daily. Dx: Type 2 DM - Uncontrolled E11.65 Insulin: No cholecalciferol, vitamin D3, (VITAMIN D3 ORAL) Take 4,000 Units by mouth once daily. ipratropium bromide (ATROVENT) 42 mcg (0.06 %) nasal spray Use 2 Sprays in the nose four times daily. loratadine 10 mg cap Take by mouth once daily. triamcinolone acetonide (NASACORT AQ) 55 mcg nasal inhaler Use 2 Sprays in the nose once daily. atorvastatin (LIPITOR) 40 mg tablet Take 1 tablet by mouth every other day. At bedtime for cholesterol. nitroglycerin sublingual (NITROSTAT) 0.4 mg SL tablet Dissolve 1 tablet under the tongue every 5 minutes as needed for Chest Pain. Aspirin 81 mg ORAL Tab Take 1 tablet by mouth once daily. Take with food. meclizine (ANTIVERT) 25 mg tab meclizine hydrochloride 25 mg oral tablet (4 sources) Antiemetic Start: 09-13-2023 (Patient not taking: Reported on 11/25/2023) clopidogrel (PLAVIX) 75 mg tablet Take 1 tablet by mouth once daily. (Patient not taking: Reported on 11/25/2023) AMMONIUM LACTATE TOPICAL Apply to affected area as needed. Lotion (Patient not taking: Reported on 11/25/2023) dapagliflozin propanediol (FARXIGA) 10 mg tablet Take 10 mg by mouth daily with breakfast. (Patient not taking: Reported on 11/25/2023) metFORMIN (GLUCOPHAGE) 850 mg tablet Take 1 tablet by mouth twice daily with meals. 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 Abnormal ankle brachial index (MELISSA) 10/18/2023 Adjustment disorder with depressed mood 02/09/2009 Aneurysm of iliac artery (HCC) repaired 1998 Aorto-iliac atherosclerosis (HCC) (HCC) 08/21/2023 Atherosclerosis of inupiat artery of both lower extremities with intermittent claudication (HCC) 08/21/2023 Atherosclerosis of inupiat artery of left lower extremity with rest pain (HCC) 10/18/2023 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 Hilliard. Coronary atherosclerosis of unspecified type of vessel, inupiat or graft 06/13/2005 Diverticulitis of colon (without mention of hemorrhage)(562.11) 06/12/2005 Former smoker 08/21/2023 Heart attack (HCC) Hypertrophy of prostate without urinary obstruction and other lower urinary tract symptoms (LUTS) 06/12/2005 Memory disturbance 07/24/2010 Mitral valve disorders(424.0) 06/12/2005 Other and unspecified hyperlipidemia 06/13/2005 Other specified disorders of arteries and arterioles (HCC) 06/12/2005 Peripheral vascular disease, unspecified (HCC) 06/12/2005 Personal history of colonic polyps 06/13/2005 Tubular adenoma. 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) Tobacco use disorder 06/12/2005 Type II or unspecified type diabetes mellitus without mention of complication, not stated as uncontrolled 01/24/2011 Unspecified essential hypertension 06/12/2005 Venous insufficiency (chronic) (peripheral) 05/11/2015 PAST SURGICAL HISTORY: PAST SURGICAL HISTORY Procedure Laterality Date APPENDECTOMY DONE W/OTHR MAJOR SURGERY 1998 With inguinal hernia repair [facility] INCL FLUOR GDNCE DX W/CELL WASHG SPX 09/12/2007 Bronchoscopy COLONOSCOPY FLX DX W/COLLJ SPEC WHEN PFRMD 01/2003 Colonoscopy COLONOSCOPY FLX DX W/COLLJ SPEC WHEN PFRMD 02/2005 Colonoscopy COLONOSCOPY FLX DX W/COLLJ SPEC WHEN PFRMD 12/05/2015 Colonoscopy COLSC FLX W/RMVL OF TUMOR POLYP LESION SNARE TQ 08/25/2010 Distal transverse polyp/diverticular dz CYSTOURETHROSCOPY 06/14/2004 Cystoscopy DIR RPR ANEURYSM ABDOMINAL AORTA 11/11/1998 Abd Aortic Aneurysm Repair INSERT INTRACORONARY STENT 1998 right MCA INTRODUCTION CATHETER AORTA 07/25/2010 APLL LEFT HEART CATH,PERCUTANEOUS 01/09/2012 Cardiac cath, L heart LEFT HEART CATH,PERCUTANEOUS 03/29/2014 Cardiac cath, L heart LITHOTRIPSY XTRCORP SHOCK WAVE 06/14/2004 Lithotripsy OPEN TX CLAVICULAR FRACTURE INTERNAL FIXATION 1984 right clavicle RPR 1ST INGUN HRNA AGE 5 YRS/> REDUCIBLE 05/05/1999 Hernia repair, inguinal TEAEC W/WO PATCH GRAFT DEEP PROFUNDA FEMORAL Right 08/05/2018 TRANSCATH STENT ADDN VESSEL,PERCUT 02/17/2008 Transcath stent addn vessel percut. Mid and distal RCA. TRANSCATH STENT INIT VESSEL,PERCUT 02/17/2008 Transcath stent init vessel percut, Prox. RCA. TRANSURETHRAL ELEC-SURG PROSTATECTOM 03/07/2022 ALLERGIES: ALLERGIES Allergen Reactions Levaquin [Levofloxa* Hives Felodipine Rash Pletal [Cilostazol] Itching Sulfa (Sulfonamide * Itching Targeted ROS Comprehensive system review of systems did not reveal any pertinent positives or negatives except per HPI PHYSICAL EXAM: Focused Physical Exam: BP 124/66 Pulse 62 Resp 16 Ht 5' 8 (1.73m) Wt 195 lb (88.5kg) BMI 29.66 kg/(m^2). General: WDWN in NAD Pulmonary: Non-labored on RA Coronary: Regular rate, no GARCIA or JVD Abdomen: Non-tender, Non-distended Extremities: Normal range of motion, slight edema to the left foot with erythema improving at the toes Neurologic: Awake, alert and oriented. Normal and symmetrical M/S function Vascular: Vascular: 2+ Pulse left femoral, biphasic left PT and monophasic DP Incision: clean, dry, incision intact. No s/s of acute infection or hematoma. Assessment/Plan Woody Hernandes is a 88 year old male now s/p left iliofemoral reconstruction with resolution of left lower extremity rest pain. Incision healing well without obvious complication. - Continue cardiovascular risk factor modification with blood pressure control and asa/statin therapy as tolerated at the direction of Riaz Whitman MD - Follow up in 2-4 weeks at Rosmery Swift MD Vascular Surgery Staff 11/25/2023 documented in this encounter [facility] 11-22-2023 Miscellaneous Notes Patient notified per below. Jessica Bentley LPN November 22, 2023 10:02 AM Swelling following surgery is really very common, and can persist for several weeks following surgery - there isn't anything that he is doing wrong. He's doing the right thing with keeping his foot elevated, but should be sure that it is elevated parallel to the floor or even higher when possible (not just on a stool.... ). Additionally, he could use an SILVANO wrap as a light compression wrap through the weekend, to help to control some of the swelling when he is not able to elevate his leg (he should be up and walking throughout the day). Wrap from toes upward to the knee, making sure that it is not so tight that it 'cuts off' the circulation, but just adds some support through the lower leg/foot. This is only an option -- he does not have to wrap his foot/leg if he does not want to or does not think he can tolerate it He is seeing Dr. Swift on Saturday, so he can take a look and discuss further as well, and Dr. Swift is deputy probation officer this , so if there are any concerns over the weekend, pt can call the office and they will put him in touch with him. Thanks, Bijal Zee APRN.RAILROAD SIGNAL TECHNICIAN Post Note: Patient calling in requesting return call - no message. This Nurse returned call. Patient states his left foot is swollen/toes and toes hurt. Patient asking what should he do? Patient states keeping foot elevated. This Nurse advised patient that someone really needs to have eyes on his foot and he needs to be seen at the closest medical facility. Patient states he lives in [place]. This Nurse advised patient to go to the closest hospital where someone can have eyes on him and someone look at his foot and proper evaluation/assessment and diagnostics can be done. This can't be done over the phone. Patient states that he will just wait until his upcoming appointment. Jessica Bentley LPN November 21, 2023 4:51 PM documented in this encounter [facility] 11-15-2023 Note HNO ID: [id number] Author: MARY RIVERA RN Service: Care Management Author Type: Registered Nurse Type: Care Mgt Progress Note Filed: 11/15/2023 12:25 Note Text: CARE MANAGEMENT DISCHARGE NOTE SERVICE DATE: November 15, 2023 SERVICE TIME: 12:25 PM Admission Date: 11/09/2023 LOS: 6 days Discharge Arrangement Discharge Arrangement: Home with Self Care Services Arranged Medical Services: Other: See Comment (n/a) Provider Name: Dr. Whitman Caregiver Assessment Caregiver is ready, willing and able to meet the patient's needs as recommended by the inter-professional team: No Caregiver needed Transportation Arrangements Transportation Arrangements: Car Destination: home Handoff Communication: Handoff to: Primary Care Physician Primary Care Physician Name/Phone: Dr. Riaz Whitman [phone] Additional Information: The patient will dc to home today with family to transport. He will follow up with PCP outpatient. He has no [facility] needs. SIGNATURE: Mary Rivera RN PATIENT NAME: Woody Hernandes DATE: November 15, 2023 TIME: 12:25 PM CONTACT #: [phone] [facility] 11-15-2023 Note HNO ID: [id number] Author: NIKOLAI DIALLO PA-C Service: Vascular Surgery Author Type: Physician Big Data Developer Type: Progress Notes Filed: 11/15/2023 11:25 Note Text: Vascular Surgery Progress Note SERVICE DATE: 11/15/2023 Vascular Surgery Service Pager: For questions or concerns Mon-Fri 6a-5p please page [phone]. After 5pm and on Weekends and Holidays, please page [phone] if in ICU or [phone] if on RNF. Subjective SUBJECTIVE: CC: PAD Today I am evaluating the patient re: PAD Patient seen and examined. No events documented overnight. Some chronic SOB. Only pain is present at L groin. Left foot feeling good. + flatus, no BM. Diet: DIET CARBOHYDRATE CONTROLLED Objective OBJECTIVE: Vitals: Temp (24hrs), Av.7 ?C (98.1 ?F), Min:36.6 ?C (97.9 ?F), Max:36.8 ?C (98.2 ?F) BP 143/57 Pulse 66 Temp 36.7 ?C (98.1 ?F) (Temporal) Resp 18 Ht 172.7 cm (5' 8 ) Wt 89.6 kg (197 lb 8.5 oz) SpO2 97% BMI 30.03 kg/m? O2 Therapy: Room Air IANDO: Date 11/14/23 07 - 11/15/23 0659 11/15/23 07 - 11/16/23 0659 Shift 9676-6307 7459-9179 5725-0476 24 Hour Total 7765-2669 8852-2549 7361-3908 24 Hour Total INTAKE PO 973 456 9484 PO 235 096 1268 Shift Total 489 986 8936 OUTPUT Urine 400 692 338 4397 Void (ml) 400 930 067 3209 Shift Total 400 256 138 3832 Weight (kg) 89.6 89.6 89.6 89.6 89.6 89.6 89.6 89.6 MEDICATIONS Current Facility-Administered Medications Medication Dose Route Frequency lactated ringers iv infusion 100 mL/hr INTRAVENOUS CONTINUOUS senna-docusate 8.6-50 mg 1 tablet (SENNA-S) 1 tablet ORAL BID clopidogrel 75 mg tab(s) (PLAVIX) 75 mg ORAL DAILY fentaNYL 50 mcg/mL 50 mcg injection (SUBLIMAZE) 50 mcg INTRAVENOUS q 2 H PRN aspirin, enteric coated 81 mg tab(s) 81 mg ORAL DAILY insulin lispro injection (rapid acting) (ADMElog) SUBCUTANEOUS w MEALS nitroglycerin sublingual 0.4 mg tab(s) (NITROQUICK) 0.4 mg SUBLINGUAL q 5 MIN PRN atorvastatin 40 mg tab(s) (LIPITOR) 40 mg ORAL q 48 H ipratropium bromide 2 [place] nasal spray (ATROVENT) 2 [place] NASAL QID isosorbide mononitrate ER 30 mg tab(s) (IMDUR) 30 mg ORAL DAILY pantoprazole DR 40 mg tab(s) (PROTONIX) 40 mg ORAL DAILY (6 AM) montelukast 10 mg tab(s) (SINGULAIR) 10 mg ORAL AT BEDTIME albuterol HFA 90 mcg/actuation 2 Puff (PROVENTIL HFA, VENTOLIN HFA) 2 Puff INHALATION q 6 H PRN carvedilol 25 mg tab(s) (COREG) 25 mg ORAL BID hydrALAZINE 100 mg tab(s) (APRESOLINE) 100 mg ORAL TID rOPINIRole 1 mg tab(s) (REQUIP) 1 mg ORAL AT BEDTIME ipratropium-albuterol 3 mL nebulizer solution (DUONEB) 3 mL INHALATION q 4 H PRN amLODIPine 10 mg tab(s) (NORVASC) 10 mg ORAL DAILY meclizine 25 mg tab(s) (ANTIVERT) 25 mg ORAL BID PRN cetirizine 5 mg tab(s) (ZYRTEC) 5 mg ORAL DAILY NaCl 0.9% iv flush bag 20 mL INTRAVENOUS PRN ondansetron 4 mg tab(s) (ZOFRAN) 4 mg ORAL q 6 H PRN Or ondansetron (PF) 4 mg injection (ZOFRAN) 4 mg INTRAVENOUS q 6 H PRN oxyCODONE IR 5-10 mg tab(s) (ROXICODONE) 5-10 mg ORAL q 6 H PRN acetaminophen 975 mg tab(s) (TYLENOL) 975 mg ORAL q 6 H dextrose 15 gram/32 mL 15 g (TRUEPLUS) 15 g ORAL PRN Or glucagon 1 mg injection 1 mg INTRAMUSCULAR PRN Or dextrose 10% iv bolus 12.5 g INTRAVENOUS PRN insulin glargine 15 Units pen (long acting) 15 Units SUBCUTANEOUS DAILY (8 AM) Labs: Recent Labs 11/14/23 0559 11/13/23 0437 11/12/23 1729 11/12/23 1356 11/12/23 1130 NA 136 136 < > -- -- K 4.3 4.8 < > -- -- CHLOR 104 104 < > -- -- CO2 21* 23 < > -- -- BUN 28* 31* < > -- -- CREAT 1.90* 2.05* < > -- -- GLUC 148* 141* < > -- -- ANION 11 9 < > -- -- CA 8.5 8.2* < > -- -- WBC 11.23* 9.70 < > -- -- HB 9.0* 9.7* < > -- -- HCT 29.5* 30.8* < > -- -- PLT 183 187 < > -- -- PCO2 -- -- -- 45.3* 43.4 PO2 -- -- -- 154* 121* BE -- -- -- -2 -1 HCO3 -- -- -- 23.9 24.6 < > = values in this interval not displayed. Exam: GENERAL: Male in chair. No distress, Alert NEURO: NFD HEENT: normocephalic, atraumatic, EOMI NECK: trachea midline no JVD LUNGS: Wet cough. Unlabored breathing. No wheeze. O2 Therapy: Room Air CARDIAC: Regular rate and rhythm ABDOMEN: Distended. Soft, non-tender. Bowel sounds present EXTREMITIES: L groin healing well. Skin edges well approximated. 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 [facility] 11-15-2023 Note HNO ID: [id number] Author: MARY RIVERA RN Service: Care Management Author Type: Registered Nurse Type: Care Mgt Progress Note Filed: 11/15/2023 10:47 Note Text: CARE MANAGEMENT PROGRESS NOTE SERVICE DATE: 11/15/2023 SERVICE TIME: 10:46 AM LOS: 6 days Needs Prior to Discharge: None IMM Follow Up Copy Given: Yes Copy given to:: Patient Method: In Person The patient gave verbal understanding of IMM reminder. PT/OT recommend home no needs. The patient's family will transport him home when ready for discharge. SIGNATURE: Mary Rivera RN PATIENT NAME: Woody Hernandes DATE: November 15, 2023 TIME: 10:46 AM PAGER/CONTACT #: [phone] [facility] 11-14-2023 Note HNO ID: [id number] Author: RENE SWIFT MD Service: General Surgery Author Type: Resident Type: Progress Notes Filed: 11/14/2023 16:55 Note Text: Attestation signed by Rene Swift MD at 11/14/2023 4:55 PM Attending Note I discussed with resident. The patient was not examined by the attending. I reviewed the resident's note. I agree with the resident's assessment and plan unless otherwise noted. PVRs reviewed Following Dc 1 week wound check at [facility] 4-6 weeks follow up at [place] with PVRs and LLE arterial duplex Signature: Rene Swift MD Date: 11/14/2023. Time: 4:54 PM Vascular Surgery Progress Note SERVICE DATE: 11/14/2023 Vascular Surgery Service Pager: For questions or concerns Mon-Fri 6a-5p please page [phone]. After 5pm and on Weekends and Holidays, please page [phone] if in ICU or [phone] if on RNF. Subjective SUBJECTIVE: Pt seen in the AM. NAOE. VSS. Patient doing well on exam. Signals present in L PT and DP. Diet: DIET CARBOHYDRATE CONTROLLED Objective OBJECTIVE: Vitals: Temp (24hrs), Av.5 ?C (97.7 ?F), Min:36.3 ?C (97.3 ?F), Max:36.8 ?C (98.2 ?F) BP 137/62 Pulse 74 Temp 36.8 ?C (98.2 ?F) Resp 22 Ht 172.7 cm (5' 8 ) Wt 89.6 kg (197 lb 8.5 oz) SpO2 97% BMI 30.03 kg/m? O2 Therapy: Room Air IANDO: Date 11/13/23699 - 11/14/2365811/14/23699 - 11/15/23 0659 Shift 0251-7060 8701-7976 1125-8001 24 Hour Total 3289-9854 0219-4901 4766-1523 24 Hour Total INTAKE PO 300 300 400 400 PO 300 300 400 400 Shift Total 300 300 400 400 OUTPUT Urine 225 674 717 6966 200 200 Void (ml) 150 700 850 200 200 Output ([REMOVED] Indwelling Urinary Catheter 11/12/23 [facility]de 16 Fr 11/13/23 0902) 225 225 Shift Total 225 736 290 0663 200 200 Weight (kg) 89.6 89.6 89.6 89.6 89.6 89.6 89.6 89.6 MEDICATIONS Current Facility-Administered Medications Medication Dose Route Frequency lactated ringers iv infusion 100 mL/hr INTRAVENOUS CONTINUOUS senna-docusate 8.6-50 mg 1 tablet (SENNA-S) 1 tablet ORAL BID clopidogrel 75 mg tab(s) (PLAVIX) 75 mg ORAL DAILY fentaNYL 50 mcg/mL 50 mcg injection (SUBLIMAZE) 50 mcg INTRAVENOUS q 2 H PRN aspirin, enteric coated 81 mg tab(s) 81 mg ORAL DAILY insulin lispro injection (rapid acting) (ADMElog) SUBCUTANEOUS w MEALS sodium chloride 0.9 % (flush) 2-10 mL (BD POSIFLUSH) 2-10 mL INTRAVENOUS DIRECTED PRN And perflutren lipid microspheres 1.1 mg/mL 1.3 mL injection (DEFINITY) 1.3 mL INTRAVENOUS DIRECTED PRN nitroglycerin sublingual 0.4 mg tab(s) (NITROQUICK) 0.4 mg SUBLINGUAL q 5 MIN PRN atorvastatin 40 mg tab(s) (LIPITOR) 40 mg ORAL q 48 H ipratropium bromide 2 [place] nasal spray (ATROVENT) 2 [place] NASAL QID isosorbide mononitrate ER 30 mg tab(s) (IMDUR) 30 mg ORAL DAILY pantoprazole DR 40 mg tab(s) (PROTONIX) 40 mg ORAL DAILY (6 AM) montelukast 10 mg tab(s) (SINGULAIR) 10 mg ORAL AT BEDTIME albuterol HFA 90 mcg/actuation 2 Puff (PROVENTIL HFA, VENTOLIN HFA) 2 Puff INHALATION q 6 H PRN carvedilol 25 mg tab(s) (COREG) 25 mg ORAL BID hydrALAZINE 100 mg tab(s) (APRESOLINE) 100 mg ORAL TID rOPINIRole 1 mg tab(s) (REQUIP) 1 mg ORAL AT BEDTIME ipratropium-albuterol 3 mL nebulizer solution (DUONEB) 3 mL INHALATION q 4 H PRN amLODIPine 10 mg tab(s) (NORVASC) 10 mg ORAL DAILY meclizine 25 mg tab(s) (ANTIVERT) 25 mg ORAL BID PRN cetirizine 5 mg tab(s) (ZYRTEC) 5 mg ORAL DAILY NaCl 0.9% iv flush bag 20 mL INTRAVENOUS PRN ondansetron 4 mg tab(s) (ZOFRAN) 4 mg ORAL q 6 H PRN Or ondansetron (PF) 4 mg injection (ZOFRAN) 4 mg INTRAVENOUS q 6 H PRN oxyCODONE IR 5-10 mg tab(s) (ROXICODONE) 5-10 mg ORAL q 6 H PRN acetaminophen 975 mg tab(s) (TYLENOL) 975 mg ORAL q 6 H dextrose 15 gram/32 mL 15 g (TRUEPLUS) 15 g ORAL PRN Or glucagon 1 mg injection 1 mg INTRAMUSCULAR PRN Or dextrose 10% iv bolus 12.5 g INTRAVENOUS PRN insulin glargine 15 Units pen (long acting) 15 Units SUBCUTANEOUS DAILY (8 AM) Labs: Recent Labs 11/14/23 0559 11/13/23 0437 11/12/23 1729 11/12/23 1356 11/12/23 1130 NA 136 136 < > -- -- K 4.3 4.8 < > -- -- CHLOR 104 104 < > -- -- CO2 21* 23 < > -- -- BUN 28* 31* < > -- -- CREAT 1.90* 2.05* < > -- -- GLUC 148* 141* < > -- -- ANION 11 9 < > -- -- CA 8.5 8.2* < > -- -- WBC 11.23* 9.70 < > -- -- HB 9.0* 9.7* < > -- -- HCT 29.5* 30.8* < > -- -- PLT 183 187 < > -- -- PCO2 -- -- -- 45.3* 43.4 PO2 -- -- -- 154* 121* BE -- -- -- -2 -1 HCO3 -- -- -- 23.9 24.6 < > = values in this interval not displayed. Exam: GENERAL: Alert and oriented x 3. NEURO: Cranial nerves intact. Sensory and motor intact in extremities. HEENT: Normocephalic, atraumatic NECK: Trachea midline no JVD LUNGS: Unlabored breathing, O2 Therapy: Room Air CARDIAC: Regular rate and rhythm ABDO (more content not included)... [facility] 11-13-2023 Note HNO ID: [id number] Author: OSVALDO YUSUF DO Service: General Surgery Author Type: Resident Type: Progress Notes Filed: 11/14/2023 13:28 Note Text: Vascular Surgery Progress Note SERVICE DATE: 11/13/2023 Vascular Surgery Service Pager: For questions or concerns Mon-Fri 6a-5p please page [phone]. After 5pm and on Weekends and Holidays, please page [phone] if in ICU or [phone] if on RNF. Subjective SUBJECTIVE: Stroke workup negative. Patient now speaking and alert and oriented. Pain improved. Tolerating below diet. Diet: DIET CARBOHYDRATE CONTROLLED Objective OBJECTIVE: Vitals: Temp (24hrs), Av.4 ?C (97.6 ?F), Min:36.3 ?C (97.3 ?F), Max:36.5 ?C (97.7 ?F) BP 122/63 Pulse 94 Temp 36.3 ?C (97.3 ?F) Resp 21 Ht 172.7 cm (5' 8 ) Wt 89.6 kg (197 lb 8.5 oz) SpO2 96% BMI 30.03 kg/m? O2 Therapy: Room Air IANDO: Date 11/12/23 1500 - 11/13/23 0659 11/13/23 0700 - 11/14/23 0659 Shift 0336-3711 2634-5540 24 Hour Total 9066-0162 1951-3209 1240-2131 24 Hour Total INTAKE IV 2700 2700 Volume (mL) (lactated ringers iv infusion) 1500 1500 Volume (mL) (NaCl 0.9% iv infusion) 1200 1200 Blood Products 600 1350 Cell Saver Returned Volume 600 1000 Infusion Complete Volume (mL) (RBC Transfusion Instruction) 350 Shift Total 3300 4050 OUTPUT Urine 330 870 9583 225 225 OR Urine Output 600 Output ([REMOVED] Indwelling Urinary Catheter 11/12/23 [facility] Coude 16 Fr 11/13/23 0902) 200 350 550 225 225 Blood 1100 1400 Estimated Blood loss 1100 1400 Shift Total 6204 503 7381 225 225 Weight (kg) 89.6 89.6 89.6 89.6 89.6 89.6 89.6 MEDICATIONS Current Facility-Administered Medications Medication Dose Route Frequency senna-docusate 8.6-50 mg 1 tablet (SENNA-S) 1 tablet ORAL BID clopidogrel 75 mg tab(s) (PLAVIX) 75 mg ORAL DAILY fentaNYL 50 mcg/mL 50 mcg injection (SUBLIMAZE) 50 mcg INTRAVENOUS q 2 H PRN hydrALAZINE 10 mg injection (APRESOLINE) 10 mg INTRAVENOUS q 4 H PRN aspirin, enteric coated 81 mg tab(s) 81 mg ORAL DAILY insulin lispro injection (rapid acting) (ADMElog) SUBCUTANEOUS w MEALS sodium chloride 0.9 % (flush) 2-10 mL (BD POSIFLUSH) 2-10 mL INTRAVENOUS DIRECTED PRN And perflutren lipid microspheres 1.1 mg/mL 1.3 mL injection (DEFINITY) 1.3 mL INTRAVENOUS DIRECTED PRN nitroglycerin sublingual 0.4 mg tab(s) (NITROQUICK) 0.4 mg SUBLINGUAL q 5 MIN PRN atorvastatin 40 mg tab(s) (LIPITOR) 40 mg ORAL q 48 H ipratropium bromide 2 [place] nasal spray (ATROVENT) 2 [place] NASAL QID isosorbide mononitrate ER 30 mg tab(s) (IMDUR) 30 mg ORAL DAILY pantoprazole DR 40 mg tab(s) (PROTONIX) 40 mg ORAL DAILY (6 AM) montelukast 10 mg tab(s) (SINGULAIR) 10 mg ORAL AT BEDTIME albuterol HFA 90 mcg/actuation 2 Puff (PROVENTIL HFA, VENTOLIN HFA) 2 Puff INHALATION q 6 H PRN carvedilol 25 mg tab(s) (COREG) 25 mg ORAL BID hydrALAZINE 100 mg tab(s) (APRESOLINE) 100 mg ORAL TID rOPINIRole 1 mg tab(s) (REQUIP) 1 mg ORAL AT BEDTIME ipratropium-albuterol 3 mL nebulizer solution (DUONEB) 3 mL INHALATION q 4 H PRN amLODIPine 10 mg tab(s) (NORVASC) 10 mg ORAL DAILY meclizine 25 mg tab(s) (ANTIVERT) 25 mg ORAL BID PRN cetirizine 5 mg tab(s) (ZYRTEC) 5 mg ORAL DAILY NaCl 0.9% iv flush bag 20 mL INTRAVENOUS PRN ondansetron 4 mg tab(s) (ZOFRAN) 4 mg ORAL q 6 H PRN Or ondansetron (PF) 4 mg injection (ZOFRAN) 4 mg INTRAVENOUS q 6 H PRN oxyCODONE IR 5-10 mg tab(s) (ROXICODONE) 5-10 mg ORAL q 6 H PRN acetaminophen 975 mg tab(s) (TYLENOL) 975 mg ORAL q 6 H dextrose 15 gram/32 mL 15 g (TRUEPLUS) 15 g ORAL PRN Or glucagon 1 mg injection 1 mg INTRAMUSCULAR PRN Or dextrose 10% iv bolus 12.5 g INTRAVENOUS PRN insulin glargine 15 Units pen (long acting) 15 Units SUBCUTANEOUS DAILY (8 AM) Labs: Recent Labs 11/13/23 0437 11/12/23 1729 11/12/23 1356 11/12/23 1130 NA 136 133* -- -- K 4.8 5.1 -- -- CHLOR 104 102 -- -- CO2 23 20* -- -- BUN 31* 30* -- -- CREAT 2.05* 1.80* -- -- GLUC 141* 179* -- -- ANION 9 11 -- -- CA 8.2* 8.2* -- -- WBC 9.70 17.74* -- -- HB 9.7* 11.8* -- -- HCT 30.8* 37.8* -- -- PLT 187 228 -- -- PCO2 -- -- 45.3* 43.4 PO2 -- -- 154* 121* BE -- -- -2 -1 HCO3 -- -- 23.9 24.6 Exam: GENERAL: Alert and oriented x 3. NEURO: Cranial nerves intact. Sensory and motor intact in extremities. 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 [facility] 11-13-2023 Note HNO ID: [id number] Author: RENE SWIFT MD Service: Vascular Surgery Author Type: Physician Type: Plan of Care Filed: 11/13/2023 10:38 Note Text: VASCULAR SURGERY PLAN OF CARE Patient Name: Woody Hernandes 88M POD#1 from Left ileofemoral endarterectomy and bovine patch profundaplasty. POC cb aphasia, resolved no CT or MRI findings for CVA. Otherwise normal postoperative course. Doing well this AM. BP well controlled. Strong LLE pedal signals. Subjective improvement in foot pain. Toes still symptomatic. Incision clean, dry, incision intact. No s/s of acute infection or hematoma. Plan: RNF, Dc A-line and childers Reg diet PT/OT eval Postoperative PVRs tomorrow Continue ASA/plavix Home PO meds Rene Swift MD - Vascular Surgery Staff PATIENT NAME: Woody Hernandes DATE: November 13, 2023 TIME: 10:36 AM PAGER/CONTACT #: [phone] [facility] 11-13-2023 Note HNO ID: [id number] Author: DENAE ORDOÑEZ RN Service: Care Management Author Type: Registered Nurse Type: Care Mgt Initial Assessment Filed: 11/13/2023 10:17 Note Text: CARE MANAGEMENT: ASSESSMENT AND DISCHARGE PLAN SERVICE DATE: November 13, 2023 SERVICE TIME: 10:11 AM PCP: Riaz Whitman MD Primary Contact: Extended Emergency Contact Information Primary Emergency Contact: Argentina Hernandes Address: [address] [place] [id number] [facility] Mobile Relation: Spouse Secondary Emergency Contact: Danni hernandes Mobile Relation: Relative Admission Status: Inpatient Insurance Provider: [place]ARE Discharge Planning requested by: Per Department Practice Potential Transition Plans To Be Determined;Home;Home Care Advance Directives Current Advance Directive: Health Care Power of Control Panel Builder In Chart: Yes Up To Date and Valid: Yes Current Living Arrangements and Support Lives with: Spouse/significant other Type of Residence: Private Residence (House) Does the patient have to climb stairs at home?: stairs within the home (Stays on the first floor) Support: Family members, Spouse/significant other, Friends/neighbors How do you manage to accomplish the following: Needs Assistance: Ambulation Current Services/Equipment Current Post-Acute Service(s): DME Current DME Type: Cane, Rolling walker, Nebulizer, Continuous Positive Airway Pressure, Electric scooter Current Post-Acute Service(s) Provider: Joi provides CPAP Discharge Planning Patient Goal(s): Increase strength, General wellness, Be able to go home Park of Choice Explained: Park of Choice Given: No Reason Not Given: Unable to complete with this assessment - revisit Are you interested in bedside delivery of your medications? Yes Discharge Planning Participant(s): Patient Patient/Family Comments: Caregiver Assessment: Caregiver is ready, willing and able to meet the patient's needs as recommended by the inter-professional team: No Caregiver needed Transport at Discharge: Transportation Arrangements: Car Destination: Home Needs Prior to Discharge: Needs Prior to Discharge: OT/PT Evaluation;Facility or Agency Choices;Discharge Prescriptions;Pharmacy Bedside Delivery;To Be Determined Post-Acute Discharge Plan: Lives with in 2-story home but resides on the 1st floor. Indep with care. Uses cane, walker, motorized scooter for mobility. Has nebulizer and CPAP thru [facility]. No services presently. Needs PT/OT evals but patient verbalizes reluctance to accept therapy if recommended. Awaiting rec's. (+) PCP (+) RX. Fills scripts at [facility] but would like scripts delivered to the bedside at D/C. SIGNATURE: Denae Ordoñez RN PATIENT NAME: Woody Hernandes DATE: November 13, 2023 TIME: 10:11 AM CONTACT #: [phone] [facility] 11-12-2023 Note HNO ID: [id number] Author: TAMIA BACON DO Service: General Surgery Author Type: Resident Type: Plan of Care Filed: 11/12/2023 21:54 Note Text: Post operative check performed at bedside. Patient resting comfortably in no acute distress. He is now able to speak but is somewhat aphasic. Otherwise neuro exam vastly unremarkable. VSS. L groin pain well controlled on current regimen. Denies any numbness or tingling throughout his L leg. Strong L PT signal but no DP signal. R foot with strong DP and PT signals. However, this is likely chronic as patient is asymptomatic. Will keep patient NPO for now until MRI brain has officially been read. Okay to mobilize at this time. Will recheck labs at midnight. Luis Fernando Bacon DO, PGY-4 General Surgery Resident 9:54 PM 11/12/2023 [facility] 11-12-2023 Note HNO ID: [id number] Author: KHUSHBOO VELÁZQUEZ MD Service: Anesthesiology Author Type: Anesthesiologist Type: Anesthesia Procedure Notes Filed: 11/12/2023 09:02 Note Text: ANESTHESIOLOGY PROCEDURE NOTE A-Line General Information Procedure Start Time/Medication Administration: 11/12/2023 8:30 AM Patient location during procedure: OR Timeout Performed Pre-procedure: timeout performed Indications: continuous blood pressure monitoring and blood sampling needed Staffing Anesthesiologist: Khushboo Velázquez MD Performed by: anesthesiologist Preparation Sterility Preparation: hand hygiene performed prior to procedure, surgical cap used, mask used, skin prep agent completely dried prior to procedure Site Prep: Chloraprep Procedure Details Catheter Type: arterial line Guidewire Used: Yes Guidewire Removed Intact: Yes Laterality: left Site: radial artery Ultrasound Guided: Yes Image in Chart: No Sites: potential access sites evaluated, selected vessel patent, concurrent real time ultrasound visualization of vascular needle entry Vessel: target vessel identified and guidewire advanced into vessel Events Events: patient tolerated procedure well with no complications SIGNATURE: Khushboo Velázquez MD PATIENT NAME: Woody Hernandes DATE: November 12, 2023 TIME: 9:02 AM CSN: [id number] [facility] 11-12-2023 Note HNO ID: [id number] Author: YOU ORTEZ APRN.CRNA Service: Anesthesiology Author Type: Nurse Certified Phlebotomy Technician Type: Anesthesia Procedure Notes Filed: 11/12/2023 09:01 Note Text: ANESTHESIOLOGY PROCEDURE NOTE Airway General Information Procedure Start Time/Medication Administration: 11/12/2023 8:26 AM Patient location during procedure: OR Timeout Performed Pre-procedure: timeout performed Consent Obtained: Yes Patient identity confirmed: arm band and patient Staffing BEEF KILLER: You Ortez APRN.BEEF KILLER Indications and Patient Condition Indications for airway management: anesthesia Preoxygenated: yes anesthesia circuit Method: asleep Difficult Mask: No Final Airway Details Final airway type: endotracheal airway Final Endotracheal Airway: ETT Cuffed: yes Successful intubation technique: direct laryngoscopy Endotracheal tube insertion site: oral Blade: Angel Blade size: #4 ETT size (mm): 8.0 Measured from: lips Measurement (cm): 22 Placement verified by: capnometry Cormack-Lehane Classification: grade I - full view of glottis Number of attempts at approach: 1 Airway not difficult SIGNATURE: You Ortez APRN.BEEF KILLER PATIENT NAME: Woody Hernandes DATE: November 12, 2023 TIME: 9:00 AM CSN: [id number] [facility] 11-12-2023 Note HNO ID: [id number] Author: NIKOLAI DIALLO PA-C Service: Vascular Surgery Author Type: Physician Big Data Developer Type: Progress Notes Filed: 11/12/2023 08:54 Note Text: Vascular Surgery Progress Note SERVICE DATE: 11/12/2023 Vascular Surgery Service Pager: For questions or concerns Mon-Fri 6a-5p please page [phone]. After 5pm and on Weekends and Holidays, please page [phone] if in ICU or [phone] if on RNF. Subjective SUBJECTIVE: CC: PAD Today I am evaluating the patient re: PAD Patient seen and examined. No events documented overnight. Denies N/V/CP/SOB. L foot pain stable. In good spirits. at bedside with Dr. Swift answering questions prior to OR. Diet: DIET NPO Objective OBJECTIVE: Vitals: Temp (24hrs), Av.4 ?C (97.5 ?F), Min:35.8 ?C (96.4 ?F), Max:36.8 ?C (98.3 ?F) BP 167/62 Pulse (!) 53 Temp (!) 35.8 ?C (96.4 ?F) (Temporal) Resp 16 Ht 172.7 cm (5' 8 ) Wt 89.6 kg (197 lb 8.5 oz) SpO2 95% BMI 30.03 kg/m? O2 Therapy: Room Air IANDO: Date 11/11/23699 - 11/12/23 0659 11/12/23 07 - 11/13/23 0659 Shift 6650-3225 7416-2010 3635-2926 24 Hour Total 5000-0830 7442-3567 5596-4132 24 Hour Total INTAKE PO 360 360 PO 360 360 Shift Total 360 360 OUTPUT Shift Total Weight (kg) 89.6 89.6 89.6 89.6 89.6 89.6 89.6 89.6 MEDICATIONS Current Facility-Administered Medications Medication Dose Route Frequency [Held on Transfer] aspirin, enteric coated 81 mg tab(s) 81 mg ORAL DAILY [Held on Transfer] insulin lispro injection (rapid acting) (ADMElog) SUBCUTANEOUS w MEALS [Held on Transfer] sodium chloride 0.9 % (flush) 2-10 mL (BD POSIFLUSH) 2-10 mL INTRAVENOUS DIRECTED PRN And [Held on Transfer] perflutren lipid microspheres 1.1 mg/mL 1.3 mL injection (DEFINITY) 1.3 mL INTRAVENOUS DIRECTED PRN [Held on Transfer] nitroglycerin sublingual 0.4 mg tab(s) (NITROQUICK) 0.4 mg SUBLINGUAL q 5 MIN PRN [Held on Transfer] atorvastatin 40 mg tab(s) (LIPITOR) 40 mg ORAL q 48 H [Held on Transfer] ipratropium bromide 2 [place] nasal spray (ATROVENT) 2 [place] NASAL QID [Held on Transfer] isosorbide mononitrate ER 30 mg tab(s) (IMDUR) 30 mg ORAL DAILY [Held on Transfer] pantoprazole DR 40 mg tab(s) (PROTONIX) 40 mg ORAL DAILY (6 AM) [Held on Transfer] montelukast 10 mg tab(s) (SINGULAIR) 10 mg ORAL AT BEDTIME [Held on Transfer] albuterol HFA 90 mcg/actuation 2 Puff (PROVENTIL HFA, VENTOLIN HFA) 2 Puff INHALATION q 6 H PRN [Held on Transfer] carvedilol 25 mg tab(s) (COREG) 25 mg ORAL BID [Held on Transfer] hydrALAZINE 100 mg tab(s) (APRESOLINE) 100 mg ORAL TID [Held on Transfer] rOPINIRole 1 mg tab(s) (REQUIP) 1 mg ORAL AT BEDTIME [Held on Transfer] ipratropium-albuterol 3 mL nebulizer solution (DUONEB) 3 mL INHALATION q 4 H PRN [Held on Transfer] amLODIPine 10 mg tab(s) (NORVASC) 10 mg ORAL DAILY [Held on Transfer] meclizine 25 mg tab(s) (ANTIVERT) 25 mg ORAL BID PRN [Held on Transfer] cetirizine 5 mg tab(s) (ZYRTEC) 5 mg ORAL DAILY [Held on Transfer] NaCl 0.9% iv flush bag 20 mL INTRAVENOUS PRN [Held on Transfer] ondansetron 4 mg tab(s) (ZOFRAN) 4 mg ORAL q 6 H PRN Or [Held on Transfer] ondansetron (PF) 4 mg injection (ZOFRAN) 4 mg INTRAVENOUS q 6 H PRN [Held on Transfer] oxyCODONE IR 5-10 mg tab(s) (ROXICODONE) 5-10 mg ORAL q 6 H PRN [Held on Transfer] acetaminophen 975 mg tab(s) (TYLENOL) 975 mg ORAL q 6 H [Held on Transfer] dextrose 15 gram/32 mL 15 g (TRUEPLUS) 15 g ORAL PRN Or [Held on Transfer] glucagon 1 mg injection 1 mg INTRAMUSCULAR PRN Or [Held on Transfer] dextrose 10% iv bolus 12.5 g INTRAVENOUS PRN [Held on Transfer] insulin glargine 15 Units pen (long acting) 15 Units SUBCUTANEOUS DAILY (8 AM) Labs: Recent Labs 11/12/23 0423 11/11/23 0459 NA 132* 136 K 4.0 4.7 CHLOR 97 100 CO2 24 24 BUN 34* 33* CREAT 2.09* 1.78* GLUC 176* 128* ANION 11 12 CA 9.0 9.4 WBC 5.82 7.70 HB 8.4* 8.3* HCT 28.0* 26.7* PLT 258 247 Exam: GENERAL: Male in bed at presurg. in room. No distress, Alert NEURO: NFD HEENT: normocephalic, atraumatic, EOMI NECK: trachea midline no JVD LUNGS: Unlabored breathing. 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 [facility] 11-11-2023 Note HNO ID: [id number] Author: MELLISA ODOM, RN Service: Nursing Author Type: Registered Nurse Type: Nursing Progress Note Filed: 11/11/2023 12:12 Note Text: Lexiscan nuclear stress test explained and questions answered. [facility] 11-11-2023 Note HNO ID: [id number] Author: SHAQUILLE GILL RT(R) Service: Nuclear Medicine Author Type: Technologist Type: Progress Notes Filed: 11/11/2023 11:47 Note Text: RADIOLOGY SERVICE PROGRESS NOTE SERVICE DATE: 11/11/2023 SERVICE TIME: 11:46 AM PATIENT IDENTITY VERIFICATION COMPLETED USING TWO (2) STANDARD IDENTIFIERS: Name and Date of confirmed by patient verbally FALL SCREENING: Has the patient had 2 falls in the last year or 1 fall with injury or currently using an Ambulatory Assistive Device (Walker, Cane, Wheelchair, Crutches, etc.)? No PATIENT GENDER DATA: .male ALLERGIES: Reviewed and unchanged MEDICATIONS REVIEWED: No PATIENT RELEVANT IMPLANT DATA REVIEWED: Not Applicable PATIENT PRESENTS WITH AN IMPLANTABLE OR ATTACHED LIMITED RADIOLOGY TECHNICIAN: No CREATININE: Creatinine Date Value Ref Range Status 11/11/2023 1.78 (H) 0.73 - 1.22 mg/dL Final 11/10/2023 1.77 (H) 0.73 - 1.22 mg/dL Final 11/05/2023 1.92 (H) 0.73 - 1.22 mg/dL Final Estimated Glomerular Filtration Rate Date Value Ref Range Status 11/11/2023 37 (L) >=60 mL/min/1.73m? Final Comment: Estimated Glomerular Filtration Rate (eGFR) is calculated using the 2020 CKD-EPI creatinine equation. This equation utilizes serum creatinine, sex, and age as parameters. The creatinine assay has traceable calibration to isotope dilution-mass spectrometry. Refer to KDIGO guidelines for clinical interpretation. In patients with unstable renal function, e.g. those with acute kidney injury, the eGFR may not accurately reflect actual GFR. eGFR- Date Value Ref Range Status 07/06/2021 >60 Final P.O.C.T. RESULTS: N/A November 11, [address] PERFORMED: No IV SITE: Inpatient - refer to [facility] documentation POST EXAM PIV STATUS: Left in for next appointment PROCEDURE TYPE: NM Stress: 13.6 mCi [id number] was administered IV for Rest Imaging at 945 by ms. 35.8 mCi [id number] was administered IV for Stress Imaging at 1135 by ty. ADMINISTRATION TIME: 945 PATIENT DISCHARGED TO: Patient taken to IP transport area for return to [facility]/ICU/ED. A Diagnostic radioactive procedure has taken place, with no further precautions necessary other than routine body substance precautions. More information regarding radiation safety can be found using this link: [email or web address]%[email or web address] SIGNATURE: RT Lul(R) PATIENT NAME: Woody Hernandes DATE: November 11, 2023 TIME: 11:46 AM PAGER/CONTACT #: [facility] 11-11-2023 Note HNO ID: [id number] Author: NIKOLAI DIALLO PA-C Service: Vascular Surgery Author Type: Physician Big Data Developer Type: Progress Notes Filed: 11/11/2023 15:01 Note Text: Vascular Surgery Progress Note SERVICE DATE: 11/11/2023 Vascular Surgery Service Pager: For questions or concerns Mon-Sat 6a-5p please page [phone]. After 5pm and on Weekends and Holidays, please page [phone] if in ICU or [phone] if on [facility]. Subjective SUBJECTIVE: CC: PAD Today I am evaluating the patient re: PAD Patient seen and examined. No events overnight. Denies N/V/CP/SOB. L foot pain unchanged. Diet: DIET HEART HEALTHY Objective OBJECTIVE: Vitals: Temp (24hrs), Av.7 ?C (98.1 ?F), Min:36.4 ?C (97.5 ?F), Max:36.9 ?C (98.4 ?F) BP 145/55 Pulse (!) 53 Temp 36.7 ?C (98.1 ?F) (Temporal) Resp 18 Ht 172.7 cm (5' 8 ) Wt 89.6 kg (197 lb 8.5 oz) SpO2 96% BMI 30.03 kg/m? O2 Therapy: Continuous Positive Airway Pressure IANDO: Date 11/10/23699 - 11/11/2359 11/11/23699 - 11/12/23 0659 Shift 4159-1058 0990-2389 7838-3285 24 Hour Total 9638-9915 6129-7138 1105-9633 24 Hour Total INTAKE Shift Total OUTPUT Urine Urine Not Saved. 1 x 1 x 2 x Shift Total Weight (kg) 88.9 88.9 89.6 89.6 89.6 89.6 89.6 89.6 MEDICATIONS Current Facility-Administered Medications Medication Dose Route Frequency insulin lispro injection (rapid acting) (ADMElog) SUBCUTANEOUS w MEALS sodium chloride 0.9 % (flush) 2-10 mL (BD POSIFLUSH) 2-10 mL INTRAVENOUS DIRECTED PRN And perflutren lipid microspheres 1.1 mg/mL 1.3 mL injection (DEFINITY) 1.3 mL INTRAVENOUS DIRECTED PRN nitroglycerin sublingual 0.4 mg tab(s) (NITROQUICK) 0.4 mg SUBLINGUAL q 5 MIN PRN atorvastatin 40 mg tab(s) (LIPITOR) 40 mg ORAL q 48 H ipratropium bromide 2 [place] nasal spray (ATROVENT) 2 [place] NASAL QID isosorbide mononitrate ER 30 mg tab(s) (IMDUR) 30 mg ORAL DAILY pantoprazole DR 40 mg tab(s) (PROTONIX) 40 mg ORAL DAILY (6 AM) montelukast 10 mg tab(s) (SINGULAIR) 10 mg ORAL AT BEDTIME albuterol HFA 90 mcg/actuation 2 Puff (PROVENTIL HFA, VENTOLIN HFA) 2 Puff INHALATION q 6 H PRN furosemide 40 mg tab(s) (LASIX) 40 mg ORAL DAILY carvedilol 25 mg tab(s) (COREG) 25 mg ORAL BID hydrALAZINE 100 mg tab(s) (APRESOLINE) 100 mg ORAL TID rOPINIRole 1 mg tab(s) (REQUIP) 1 mg ORAL AT BEDTIME ipratropium-albuterol 3 mL nebulizer solution (DUONEB) 3 mL INHALATION q 4 H PRN amLODIPine 10 mg tab(s) (NORVASC) 10 mg ORAL DAILY meclizine 25 mg tab(s) (ANTIVERT) 25 mg ORAL BID PRN cetirizine 5 mg tab(s) (ZYRTEC) 5 mg ORAL DAILY NaCl 0.9% iv flush bag 20 mL INTRAVENOUS PRN lactated ringers iv infusion 100 mL/hr INTRAVENOUS CONTINUOUS ondansetron 4 mg tab(s) (ZOFRAN) 4 mg ORAL q 6 H PRN Or ondansetron (PF) 4 mg injection (ZOFRAN) 4 mg INTRAVENOUS q 6 H PRN oxyCODONE IR 5-10 mg tab(s) (ROXICODONE) 5-10 mg ORAL q 6 H PRN acetaminophen 975 mg tab(s) (TYLENOL) 975 mg ORAL q 6 H dextrose 15 gram/32 mL 15 g (TRUEPLUS) 15 g ORAL PRN Or glucagon 1 mg injection 1 mg INTRAMUSCULAR PRN Or dextrose 10% iv bolus 12.5 g INTRAVENOUS PRN insulin glargine 15 Units pen (long acting) 15 Units SUBCUTANEOUS DAILY (8 AM) Labs: Recent Labs 11/11/23 0459 11/10/23 0231 NA 136 137 K 4.7 4.4 CHLOR 100 103 CO2 24 22 BUN 33* 42* CREAT 1.78* 1.77* GLUC 128* 126* ANION 12 12 CA 9.4 9.1 WBC 7.70 7.13 HB 8.3* 8.2* HCT 26.7* 26.1* PLT 247 267 Exam: GENERAL: No distress, Alert NEURO: NFD HEENT: normocephalic, atraumatic, EOMI NECK: trachea midline no JVD LUNGS: Unlabored breathing O2 Therapy: Continuous Positive Airway Pressure CARDIAC: Regular rate and rhythm as above ABDOMEN: Soft, non-tender, non-distended EXTREMITIES: DAYNA hose on. 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 NM stress test mild ischemia in the left circumflex territory. TTE w/ EF of 56% with Grade II LV dysfunction. Plan: -L FEA with iliac stenting planned with Dr. Swift on 11/12 -Cardiology's risk stratification: Moderate -OK to proceed w/ OR -NPO/ IVF -Will check with Dr. Swift on possibly holding Plavix SIGNATURE: Nikolai Diallo PA-C PATIENT NAME: Woody Hernandes DATE: November 11, 2023 TIME: 7:51 AM Vascular Surgery Service Pager: For questions or concerns Sat-Sat 6a-5p please page [phone]. After 5pm and on Weekends and Holidays, please page [phone] if in ICU or [phone] if on RNF. Portions of my documentation were copied/ pasted from the notes of Dr. Valladares (more content not included)... [facility] 10-18-2023 Note HNO ID: [id number] Author: REEN SWIFT MD Service: ? Author Type: Physician Type: Progress Notes Filed: 10/18/2023 11:03 Note Text: Surgery/Procedure Date: 09/06/2023 Surgeon(s)/Proceduralist(s) and Big Data Developer(s): Surgeon(s) and Role: * Rene Swift MD - Primary INTERVENTIONAL PROCEDURE: 1. Ultrasound-guided right common femoral access 2. Aorta and pelvic angiogram 3. Left ileofemoral angiogram 4. Right external iliac intravascular lithotripsy and DCB with 9x60 IN[facility] ESTABLISHED CLINIC VISIT Woody Hernandes [id number] HPI: Mr. Hernandes is a 88 year old male seen in clinic today for follow up s/p aortoiliac angiogram with R EIA IVL and DCB. PVRs reviewed with severely dampened left sided waveforms and an MELISSA of 0.34 from 0.56 in February as well as an improvement of his right-sided PVR of 0.86 from 0.79. During his angiogram, I was unable to cross his left-sided external iliac lesion or obtain access in a retrograde fashion due to severe calcification of the common femoral artery. In the office today, he describes constant left sided rest pain, no wounds or tissue loss. He did have a prior open AAA repair in 1998 with a bifurcated graft as well as a right femoral endarterectomy in 2017. He does have a history of coronary artery disease with PCI as well as COPD, he is a former smoker and gets short of breath on exertion, he also has stage IIIa CKD last creatinine of 1.9 to a GFR of 34 on 09/06/2023, as well as type 2 diabetes on long-term insulin. Vascular health status: Anti-platelet/anticoagulation: yes Statin or PCSK9i: yes Past Vascular Surgeries: 08/21/2018 Right common femoral and profunda endarterectomy. Recent Surgeries this specialty 09/06/2023 (6w) ANGIOGRAM EXTREMITY UNILATERAL RADIOLOGICAL (Left) Rene Swift MD - Posted MEDICATIONS: doxycycline (VIBRA-TABS) 100 mg tablet Take 100 mg by mouth two times a day. X 7 days clopidogrel (PLAVIX) 75 mg tablet Take 1 tablet by mouth once daily. insulin glargine (LANTUS SOLOSTAR U-100 INSULIN) 100 unit/mL (3 mL) amLODIPine (NORVASC) 10 mg tablet Take 10 mg by mouth once daily. AMMONIUM LACTATE TOPICAL Apply to affected area as needed. Lotion dapagliflozin propanediol (FARXIGA) 10 mg tablet Take 10 mg by mouth daily with breakfast. spironolactone (ALDACTONE) 25 mg tablet Take 25 mg by mouth once daily. ipratropium-albuterol (DUONEB) 0.5 mg-3 mg(2.5 mg base)/3 mL nebu 4 TIMES DAILY NEEDED furosemide (LASIX) 40 mg tablet Take 40 mg by mouth once daily. carvedilol (COREG) 25 mg tablet Take 1 tablet by mouth twice daily. Dr. Pierre. hydrALAZINE (APRESOLINE) 100 mg tablet Take 1 tablet by mouth three times daily. Dr. Pierre. rOPINIRole (REQUIP) 0.5 mg tablet Take 1-3 tablets by mouth at bedtime as needed. Dr. Rivero acetaminophen (TYLENOL) 500 mg tablet Take 500 mg by mouth every 8 hours as needed. albuterol HFA (PROVENTIL HFA, VENTOLIN HFA) 90 mcg/actuation inhaler Inhale 2 Puffs as instructed. montelukast (SINGULAIR) 10 mg tablet TAKE 1 TABLET BY MOUTH DAILY AT BEDTIME. FOR NASAL ALLERGIES. isosorbide mononitrate ER (IMDUR) 30 mg 24 hr tablet Take 1 tablet by mouth once daily. pantoprazole DR (PROTONIX) 40 mg tablet TAKE 1 TABLET BY MOUTH DAILY BEFORE BREAKFAST. TAKE ON EMPTY STOMACH, 1/2 HR BEFORE MEAL. coenzyme Q10 (COENZYME Q-10) 100 mg cap capsule 100 mg once daily. ascorbic acid, vitamin C, (VITAMIN C) 500 mg tablet Take 500 mg by mouth once daily. blood sugar diagnostic (BLOOD GLUCOSE TEST) test strip Test blood sugar(s) 2 times daily. Dx: Type 2 DM - Uncontrolled E11.65 Insulin: No cholecalciferol, vitamin D3, (VITAMIN D3 ORAL) Take 4,000 Units by mouth once daily. ipratropium bromide (ATROVENT) 42 mcg (0.06 %) nasal spray Use 2 Sprays in the nose four times daily. loratadine 10 mg cap Take by mouth once daily. triamcinolone acetonide (NASACORT AQ) 55 mcg nasal inhaler Use 2 Sprays in the nose once daily. atorvastatin (LIPITOR) 40 mg tablet Take 1 tablet by mouth every other day. At bedtime for cholesterol. Aspirin 81 mg ORAL Tab Take 1 tablet by mouth once daily. Take with food. DOCUSATE SODIUM ORAL Take 100 mg by mouth twice daily. (Patient not taking: Reported on 09/24/2023) iv contrast (will be provided with radiology test) CTA ABD/PEL LE - No IV access, insert saline lock prior to the sedation, infusion, injection for imaging exam. Discontinue saline lock post exam. If Pt. has a central line or IVAD, may access for administration according to line specific nursing protocol. Once exam is complete flush line and de-access according to line specific nursing protocol in the CT contrast administration guidelines link. ibuprofen (MOTRIN) 200 mg tablet Take 200 mg by mouth every 6 hours as needed. tamsulosin (FLOMAX) 0.4 mg Take 0.4 mg by mouth once daily. budesonide-formoterol (SYMBICORT) 160-4.5 mcg/actuation inhaler TWICE (more content not included)... [facility] 09-24-2023 Note HNO ID: [id number] Author: Vipul Brady Service: ? Author Type: Physician Type: Progress Notes Filed: 09/24/2023 1:56 PM Note Text: Last saw pcp: not in chart Subjective: Patient presents to clinic c/o painful toenails. They state that the nails are especially painful with shoe gear and pressure. Patient states that nails 1-5 b/l are painful. Patient admits to being diabetic. No other pedal complaints at this time. Patient states no change in medications or medical history since last visit. Objective: [facility] Vasc: DP and PT pulses are nonpalpable bilateral. CFT is less than 5 seconds bilateral. Skin temperature is warm to cool proximal to distal bilateral. There is mild edema or varicosities noted. Neuro: Protective sensation is intact to the foot and toes when tested with the 5.07 SWM bilateral. Vibratory sensation is decreased at the hallux IPJ bilateral. The hallux is downgoing bilateral. Derm: Nails 1-5 b/l are painful, discolored-yellow, thick, crumbly, dystrophic and with subungal debris. Skin is of normal turgor, texture and hair growth is absent bilateral. There are no hyperkeratosis, ulcerations, scars, verruca or other lesions noted. Ortho: Muscle strength is 5/5 for all pedal groups tested. Ankle joint DF is decreased with the knee extended with no pain or crepitus noted. 1st MPJ ROM is decreased bilateral. Assessment: (B35.1) Onychomycosis (primary encounter diagnosis) (M79.674) Pain in toe of right foot (M79.675) Pain in toe of left foot (I73.9) PAD (peripheral artery disease) (HC (E11.42) Diabetic polyneuropathy associated with type 2 diabetes mellitus (HCC) Plan: Patient was seen and evaluated. Nails 1-5 bilateral were debrided in length and thickness. Small bleed to right 4th toenail, left 2nd and 3rd. Offered band aide but he declined. Patient was instructed on the continued importance of diabetic foot care along with proper diet and keeping their blood sugar under control to prevent complications. Patient is to RTC in 3-4 months. Vipul Brady DPM [facility] 09-24-2023 Note HNO ID: [id number] Author: Chelsie Bradshaw LPN Service: ? Author Type: LICENSED NURSE Type: Progress Notes Filed: 09/24/2023 1:56 PM Note Text: AMB ROOMING INTAKE FLOWSHEET DATA Risk Screening Do you have concerns about personal safety or safety in the home?: No Patient presents with: Left Foot - Established Patient, Diabetic Foot Care Right Foot - Established Patient, Diabetic Foot Care Chelsie Bradshaw LPN [facility] 08-21-2023 Note HNO ID: [id number] Author: Rene Swift MD Service: ? Author Type: Physician Type: Progress Notes Filed: 08/21/2023 3:53 PM Note Text: [facility] [place] DEPARTMENT OF VASCULAR SURGERY OUTPATIENT VISIT DATE August 21, 2023 OUTPATIENT VISIT TYPE CONSULTATION PRIMARY CARE PHYSICIAN: Riaz Whitman MD REFERRING PROVIDER: Eliza Meme Mallory [address] [place] [id number] Consult requested for an opinion regarding the evaluation and treatment of the above. My final impression and recommendations will be communicated back to the requesting physician by way of the shared medical record or letter via [place] mail. CHIEF COMPLAINT: Bilateral LE claudication HISTORY OF PRESENT ILLNESS: Woody Hernandes is a 88 year old male with a past medical and surgical history as detailed below who presents today for consultation for an opinion regarding management of the above stated chief complaint. Claudication: yes, at approx 25' L > R , worsening over the past year, he is now very limited in his ability to ambulate 2/2 cramping pain in the calves. In addition, on the left he describes a throbbing type pain in the left thigh. Unable to walk up 2 flights of stairs due to weakness and leg pain. Underwent aortic duplex and PVR studies in February 2023 showing bilateral external iliac artery stenosis with a left lower extremity MELISSA of 0.56 and a right lower extremity MELISSA of 0.79 with moderately diminished waveforms. Denies Rest pain / tissue loss / gangrene. He has a past medical history significant for insulin-dependent type 2 diabetes, acute hypoxic respiratory failure, chronic pulmonary edema, hypertension, COPD, stage IIIa CKD, and heart failure with preserved ejection fraction. Denies abdominal pain, back pain, chest pain. He also gets easily short of breath on exertion, with R > L LE edema. He is a former smoker and quit 8 years ago. Currently undergoing work-up for bilateral renal cyst. His creatinine has acutely worsened over the past 3 months. Vascular health status: Anti-platelet/anticoagulation: yes Statin or PCSK9i: yes Past Vascular Surgeries: 08/21/2018 Right common femoral and profunda endarterectomy. MEDICATIONS: insulin glargine (LANTUS SOLOSTAR U-100 INSULIN) 100 unit/mL (3 mL) amLODIPine (NORVASC) 10 mg tablet Take 10 mg by mouth once daily. AMMONIUM LACTATE TOPICAL Apply to affected area as needed. Lotion dapagliflozin propanediol (FARXIGA) 10 mg tablet Take 10 mg by mouth daily with breakfast. DOCUSATE SODIUM ORAL Take 100 mg by mouth twice daily. ipratropium-albuterol (DUONEB) 0.5 mg-3 mg(2.5 mg base)/3 mL nebu 4 TIMES DAILY NEEDED furosemide (LASIX) 40 mg tablet Take 40 mg by mouth once daily. carvedilol (COREG) 25 mg tablet Take 1 tablet by mouth twice daily. Dr. Pierre. hydrALAZINE (APRESOLINE) 100 mg tablet Take 1 tablet by mouth three times daily. Dr. Pierre. rOPINIRole (REQUIP) 0.5 mg tablet Take 1-3 tablets by mouth at bedtime as needed. Dr. Rivero albuterol HFA (PROVENTIL HFA, VENTOLIN HFA) 90 mcg/actuation inhaler Inhale 2 Puffs as instructed. montelukast (SINGULAIR) 10 mg tablet TAKE 1 TABLET BY MOUTH DAILY AT BEDTIME. FOR NASAL ALLERGIES. isosorbide mononitrate ER (IMDUR) 30 mg 24 hr tablet Take 1 tablet by mouth once daily. pantoprazole DR (PROTONIX) 40 mg tablet TAKE 1 TABLET BY MOUTH DAILY BEFORE BREAKFAST. TAKE ON EMPTY STOMACH, 1/2 HR BEFORE MEAL. coenzyme Q10 (COENZYME Q-10) 100 mg cap capsule 100 mg once daily. ascorbic acid, vitamin C, (VITAMIN C) 500 mg tablet Take 500 mg by mouth once daily. blood sugar diagnostic (BLOOD GLUCOSE TEST) test strip Test blood sugar(s) 2 times daily. Dx: Type 2 DM - Uncontrolled E11.65 Insulin: No cholecalciferol, vitamin D3, (VITAMIN D3 ORAL) Take 4,000 Units by mouth once daily. loratadine 10 mg cap Take by mouth once daily. triamcinolone acetonide (NASACORT AQ) 55 mcg nasal inhaler Use 2 Sprays in the nose once daily. atorvastatin (LIPITOR) 40 mg tablet Take 1 tablet by mouth every other day. At bedtime for cholesterol. nitroglycerin sublingual (NITROSTAT) 0.4 mg SL tablet Dissolve 1 tablet under the tongue every 5 minutes as needed for Chest Pain. Aspirin 81 mg ORAL Tab Take 1 tablet by mouth once daily. Take with food. spironolactone (ALDACTONE) 25 mg tablet Take 25 mg by mouth once daily. iv contrast (will be provided with radiology test) CTA ABD/PEL LE - No IV access, insert saline lock prior to the sedation, infusion, injection for imaging exam. Discontinue saline lock post exam. If Pt. has a central line or IVAD, may access for administration according to line specific nursing protocol. Once exam is complete flush line and de-access according to line specific nursing protocol in the CT contrast administration guidelines link. ibuprofen (MOTRIN) 200 mg tablet Take 200 mg by mouth every 6 hours as needed. acetaminophen (TYLENOL) (more content not included)... [facility] 08-21-2023 History of Presen t illness Narrative Images from the original note were not included. [facility] [place] DEPARTMENT OF VASCULAR SURGERY OUTPATIENT VISIT DATE August 21, 2023 OUTPATIENT VISIT TYPE CONSULTATION PRIMARY CARE PHYSICIAN: Riaz Whitman MD REFERRING PROVIDER: Eliza Mallory [address] [place] [id number] Consult requested for an opinion regarding the evaluation and treatment of the above. My final impression and recommendations will be communicated back to the requesting physician by way of the shared medical record or letter via [place] mail. CHIEF COMPLAINT: Bilateral LE claudication HISTORY OF PRESENT ILLNESS: Woody Hernandes is a 88 year old male with a past medical and surgical history as detailed below who presents today for consultation for an opinion regarding management of the above stated chief complaint. Claudication: yes, at approx 25' L > R , worsening over the past year, he is now very limited in his ability to ambulate 2/2 cramping pain in the calves. In addition, on the left he describes a throbbing type pain in the left thigh. Unable to walk up 2 flights of stairs due to weakness and leg pain. Underwent aortic duplex and PVR studies in February 2023 showing bilateral external iliac artery stenosis with a left lower extremity MELISSA of 0.56 and a right lower extremity MELISSA of 0.79 with moderately diminished waveforms. Denies Rest pain / tissue loss / gangrene. He has a past medical history significant for insulin-dependent type 2 diabetes, acute hypoxic respiratory failure, chronic pulmonary edema, hypertension, COPD, stage IIIa CKD, and heart failure with preserved ejection fraction. Denies abdominal pain, back pain, chest pain. He also gets easily short of breath on exertion, with R > L LE edema. He is a former smoker and quit 8 years ago. Currently undergoing work-up for bilateral renal cyst. His creatinine has acutely worsened over the past 3 months. Vascular health status: Anti-platelet/anticoagulation: yes Statin or PCSK9i: yes Past Vascular Surgeries: 08/21/2018 Right common femoral and profunda endarterectomy. MEDICATIONS: insulin glargine (LANTUS SOLOSTAR U-100 INSULIN) 100 unit/mL (3 mL) amLODIPine (NORVASC) 10 mg tablet Take 10 mg by mouth once daily. AMMONIUM LACTATE TOPICAL Apply to affected area as needed. Lotion dapagliflozin propanediol (FARXIGA) 10 mg tablet Take 10 mg by mouth daily with breakfast. DOCUSATE SODIUM ORAL Take 100 mg by mouth twice daily. ipratropium-albuterol (DUONEB) 0.5 mg-3 mg(2.5 mg base)/3 mL nebu 4 TIMES DAILY NEEDED furosemide (LASIX) 40 mg tablet Take 40 mg by mouth once daily. carvedilol (COREG) 25 mg tablet Take 1 tablet by mouth twice daily. Dr. Pierre. hydrALAZINE (APRESOLINE) 100 mg tablet Take 1 tablet by mouth three times daily. Dr. Pierre. rOPINIRole (REQUIP) 0.5 mg tablet Take 1-3 tablets by mouth at bedtime as needed. Dr. Rivero albuterol HFA (PROVENTIL HFA, VENTOLIN HFA) 90 mcg/actuation inhaler Inhale 2 Puffs as instructed. montelukast (SINGULAIR) 10 mg tablet TAKE 1 TABLET BY MOUTH DAILY AT BEDTIME. FOR NASAL ALLERGIES. isosorbide mononitrate ER (IMDUR) 30 mg 24 hr tablet Take 1 tablet by mouth once daily. pantoprazole DR (PROTONIX) 40 mg tablet TAKE 1 TABLET BY MOUTH DAILY BEFORE BREAKFAST. TAKE ON EMPTY STOMACH, 1/2 HR BEFORE MEAL. coenzyme Q10 (COENZYME Q-10) 100 mg cap capsule 100 mg once daily. ascorbic acid, vitamin C, (VITAMIN C) 500 mg tablet Take 500 mg by mouth once daily. blood sugar diagnostic (BLOOD GLUCOSE TEST) test strip Test blood sugar(s) 2 times daily. Dx: Type 2 DM - Uncontrolled E11.65 Insulin: No cholecalciferol, vitamin D3, (VITAMIN D3 ORAL) Take 4,000 Units by mouth once daily. loratadine 10 mg cap Take by mouth once daily. triamcinolone acetonide (NASACORT AQ) 55 mcg nasal inhaler Use 2 Sprays in the nose once daily. atorvastatin (LIPITOR) 40 mg tablet Take 1 tablet by mouth every other day. At bedtime for cholesterol. nitroglycerin sublingual (NITROSTAT) 0.4 mg SL tablet Dissolve 1 tablet under the tongue every 5 minutes as needed for Chest Pain. Aspirin 81 mg ORAL Tab Take 1 tablet by mouth once daily. Take with food. spironolactone (ALDACTONE) 25 mg tablet Take 25 mg by mouth once daily. iv contrast (will be provided with radiology test) CTA ABD/PEL LE - No IV access, insert saline lock prior to the sedation, infusion, injection for imaging exam. Discontinue saline lock post exam. If Pt. has a central line or IVAD, may access for administration according to line specific nursing protocol. Once exam is complete flush line and de-access according to line specific nursing protocol in the CT contrast administration guidelines link. ibuprofen (MOTRIN) 200 mg tablet Take 200 mg by mouth every 6 hours as needed. acetaminophen (TYLENOL) 500 mg tablet Take 500 mg by mouth every 8 hours as needed. (Patient not taking: Reported on 02/05/2023) tamsulosin (FLOMAX) 0.4 mg Take 0.4 mg by mouth once daily. budesonide-formoterol (SYMBICORT) 160-4.5 mcg/actuation inhaler TWICE A DAY (Patient not taking: Reported on 07/01/2023) peg 3350-Electrolytes (GOLYTELY) 236-22.74-6.74 -5.86 gram suspension Refer to printed prep instructions from your provider. peg 3350-Electrolytes (GOLYTELY) 236-22.74-6.74 -5.86 gram suspension Drink half the jug 1st night (2L) half the jug the second night metFORMIN (GLUCOPHAGE) 850 mg tablet Take 1 tablet by mouth twice daily with meals. Miscellaneous Medical Supply Power scooter Dx: Z74.90, R26.89, I73.9, J44.1, M54.5, G89.29 Uylnox-Sajdkkr-Tjc Palm-Min 17 (PROSTATE THERAPY) cap Take 2 Each by mouth once daily. SUPER BETA PROSTATE. COQ10, LIPOSOMAL UBIQUINOL, ORAL Take 1 tablet by mouth once daily. (Patient not taking: Reported on 05/25/2022) ipratropium bromide (ATROVENT) 42 mcg (0.06 %) nasal spray Use 2 Sprays in the nose four times daily. 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 Hilliard. Coronary atherosclerosis of unspecified type of vessel, inupiat or graft 06/13/2005 Diverticulitis of colon (without mention of hemorrhage)(562.11) 06/12/2005 Diverticulosis of colon 08/25/2010 Former smoker 08/21/2023 Heart attack (HCC) Hypertrophy of prostate without urinary obstruction and other lower urinary tract symptoms (LUTS) 06/12/2005 Memory disturbance 07/24/2010 Mitral valve disorders(424.0) 06/12/2005 Other and unspecified hyperlipidemia 06/13/2005 Other specified disorders of arteries and arterioles (HCC) 06/12/2005 Peripheral vascular disease, unspecified (HCC) 06/12/2005 Personal history of colonic polyps 06/13/2005 Tubular adenoma. 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 S/P femoral-popliteal bypass surgery 08/07/2018 Snoring Superficial femoral artery occlusion (HCC) 08/21/2023 Tobacco use disorder 06/12/2005 Type II or unspecified type diabetes mellitus without mention of complication, not stated as uncontrolled 01/24/2011 Unspecified essential hypertension 06/12/2005 Venous insufficiency (chronic) (peripheral) 05/11/2015 PAST SURGICAL HISTORY: PAST SURGICAL HISTORY Procedure Laterality Date APPENDECTOMY DONE W/OTHR MAJOR SURGERY 1998 With inguinal hernia repair [facility] INCL FLUOR GDNCE DX W/CELL WASHG SPX 09/12/2007 Bronchoscopy COLONOSCOPY FLX DX W/COLLJ SPEC WHEN PFRMD 01/2003 Colonoscopy COLONOSCOPY FLX DX W/COLLJ SPEC WHEN PFRMD 02/2005 Colonoscopy COLONOSCOPY FLX DX W/COLLJ SPEC WHEN PFRMD 12/05/2015 Colonoscopy COLSC FLX W/RMVL OF TUMOR POLYP LESION SNARE TQ 08/25/2010 Distal transverse polyp/diverticular dz CYSTOURETHROSCOPY 06/14/2004 Cystoscopy DIR RPR ANEURYSM ABDOMINAL AORTA 11/11/1998 Abd Aortic Aneurysm Repair INSERT INTRACORONARY STENT 1997 right MCA INTRODUCTION CATHETER AORTA 07/25/2010 APLL LEFT HEART CATH,PERCUTANEOUS 01/09/2012 Cardiac cath, L heart LEFT HEART CATH,PERCUTANEOUS 03/29/2014 Cardiac cath, L heart LITHOTRIPSY XTRCORP SHOCK WAVE 06/14/2004 Lithotripsy OPEN TX CLAVICULAR FRACTURE INTERNAL FIXATION 1984 right clavicle RPR 1ST INGUN HRNA AGE 5 YRS/> REDUCIBLE 05/05/1999 Hernia repair, inguinal TEAEC W/WO PATCH GRAFT DEEP PROFUNDA FEMORAL Right 08/05/2018 TRANSCATH STENT ADDN VESSEL,PERCUT 02/17/2008 Transcath stent addn vessel percut. Mid and distal RCA. TRANSCATH STENT INIT VESSEL,PERCUT 02/17/2008 Transcath stent init vessel percut, Prox. RCA. TRANSURETHRAL ELEC-SURG PROSTATECTOM 03/07/2022 FAMILY HISTORY FAMILY HISTORY Problem Relation Age of Onset Alzheimer's Disease Mother age 92 Arthritis Mother hip replacement Diabetes Father alive at 93 Coronary Artery Disease Father Stroke Father Hypertension Father Prostate Cancer Father Cataract Father Hypertension Brother Heart Brother valve replacement Lipids Brother Prostate Cancer Son 57 seed implants Aneurysm No Family History ALLERGIES: ALLERGIES Allergen Reactions Felodipine Rash Levaquin [Levofloxa* Hives Pletal [Cilostazol] Itching Sulfa (Sulfonamide * Itching COMPLETE REVIEW OF SYSTEMS Comprehensive 11 system review of systems did not reveal any pertinent positives or negatives except per HPI PHYSICAL EXAM: VITALS: BP 124/52 Pulse 46 SpO2 97% General: WDWN in NAD Skin: No lesions; mild pedal edema right greater than left and varicosities along the plantar surface of both feet HEENT: NCAT PERRLA Carotid: Bruits none. Pulmonary: Clear to percussion and auscultation, slightly diminished on left base Coronary: Normal S1, S2; no murmurs, rubs or gallops Abdomen: No organomegaly, normal bowel sounds, non-tender Extremities: Normal range of motion, no edema or ulceration Neurologic: Awake, alert and oriented. Normal and symmetrical M/S function. Vascular: Palpable 2+ right femoral, 1+ left femoral nonpalpable popliteal or pedal pulses DIAGNOSTIC TESTS REVIEWED FOR TODAY'S VISIT: Most recent labs and imaging results Aortic duplex and PVR studies in February 2023 showing bilateral external iliac artery stenosis with a left lower extremity MELISSA of 0.56 and a right lower extremity MELISSA of 0.79 with moderately diminished waveforms. CARDIOPULMONARY STUDIES: ECHO: LV Ejection Fraction (%) Date Value 08/08/2018 60 IMPRESSION: Woody Hernandes is a 88 year old male seen in consultation for lifestyle limiting worsening claudication L > R reporting symptom onset at 25 feet. Duplex imaging and CT from 06/06/2022 showing bilateral aortoiliac occlusive disease. left lower extremity MELISSA of 0.56 and a right lower extremity MELISSA of 0.79 with moderately diminished waveforms. PLAN and RECOMMENDATIONS: -We will plan for aortoiliac angiogram with possible left-sided intervention -Risks, benefits, alternatives and personnel discussed with patient who consents to proceed. -Continue aspirin and high dose statin -Prescription grade compression socks at all times during the day (ordered) - Recommend continuing medical optimization of cardiovascular risk factors at the direction of Riaz Whitman MD Thank you for the opportunity to contribute to Mr. Hernandes's care. Please do not hesitate to call with any questions or concerns. Rene Swift MD Vascular Surgery Staff documented in this encounter [facility] 08-15-2023 Miscellaneous Notes Patient scheduled Patient called in stating someone from Dr. Mallory's office called so I'm returning the call . Please advise documented in this encounter [facility] 07-01-2023 Note HNO ID: [id number] Author: Vipul Brady Service: ? Author Type: Physician Type: Progress Notes Filed: 07/01/2023 12:38 PM Note Text: Last saw pcp: not documented in chart Subjective: Patient presents to clinic c/o painful toenails. They state that the nails are especially painful with shoe gear and pressure. Patient states that nails 1-5 b/l are painful. Patient admits to being diabetic. No other pedal complaints at this time. Patient states no change in medications or medical history since last visit. Objective: Patient presents to clinic ambulating in sneakers Vasc: DP and PT pulses are nonpalpable bilateral. CFT is less than 5 seconds bilateral. Skin temperature is warm to cool proximal to distal bilateral. There is moderate edema or varicosities noted. Neuro: Protective sensation is intact to the foot and toes when tested with the 5.07 SWM bilateral. Vibratory sensation is decreased at the hallux IPJ bilateral. The hallux is downgoing bilateral. Derm: Nails 1-5 b/l are painful, discolored-yellow, thick, crumbly, dystrophic and with subungal debris. Skin is of normal turgor, texture and hair growth is absent bilateral. There are no hyperkeratosis, ulcerations, scars, verruca or other lesions noted. Ortho: Muscle strength is 5/5 for all pedal groups tested. Ankle joint DF is decreased with the knee extended with no pain or crepitus noted. 1st MPJ ROM is decreased bilateral. Assessment: (B35.1) Onychomycosis (primary encounter diagnosis) (M79.674) Pain in toe of right foot (M79.675) Pain in toe of left foot (E11.42) Diabetic polyneuropathy associated with type 2 diabetes mellitus (HCC) (I73.9) PAD (peripheral artery disease) ([facility]) Plan: Patient was seen and evaluated. Nails 1-5 bilateral were debrided in length and thickness. Patient was instructed on the continued importance of diabetic foot care along with proper diet and keeping their blood sugar under control to prevent complications. Patient is to RTC in 3-4 months. Vipul Brady DPM [facility] 07-01-2023 Note HNO ID: [id number] Author: Annie Arzola RN Service: ? Author Type: Registered Nurse Type: Progress Notes Filed: 07/01/2023 12:38 PM Note Text: Patient presents with: Left Foot - Established Patient, Follow Up, Diabetic Foot Care Right Foot - Established Patient, Follow Up, New, Diabetic Foot Care Patent presents for 3 month follow up of diabetic foot care. Denies any new pain or problems at this times except from his toenails being long. [facility] 05-22-2023 Miscellaneous Notes Spoke with patient and transferred to central scheduling to schedule CT Patient calling he would not like to get scheduled for CT with runoff as recommended in March Please place order will call patient to schedule Order pending documented in this encounter [facility] 03-29-2023 Note HNO ID: [id number] Author: Vipul Brady Service: ? Author Type: Physician Type: Progress Notes Filed: 03/29/2023 2:23 PM Note Text: Last saw pcp: 07/04/22 Subjective: Patient presents to clinic c/o painful toenails. They state that the nails are especially painful with shoe gear and pressure. Patient states that nails 1-5 b/l are painful. Patient admits to being diabetic. No other pedal complaints at this time. Patient states no change in medications or medical history since last visit. Objective: Patient presents to clinic ambulating in diabetic shoes Vasc: DP and PT pulses are nonpalpable bilateral. CFT is less than 5 seconds bilateral. Skin temperature is warm to cool proximal to distal bilateral. There is mild edema or varicosities noted. Neuro: Protective sensation is intact to the foot and toes when tested with the 5.07 SWM bilateral. Vibratory sensation is decreased at the hallux IPJ bilateral. The hallux is downgoing bilateral. Derm: Nails 1-5 b/l are painful, discolored-yellow, thick, crumbly, dystrophic and with subungal debris. Skin is of normal turgor, texture and hair growth is absent bilateral. There are no hyperkeratosis, ulcerations, scars, verruca or other lesions noted. Ortho: Muscle strength is 5/5 for all pedal groups tested. Ankle joint DF is decreased with the knee extended with no pain or crepitus noted. 1st MPJ ROM is decreased bilateral. Assessment: (B35.1) Onychomycosis (primary encounter diagnosis) (M79.674) Pain in toe of right foot (M79.675) Pain in toe of left foot (E11.42) Diabetic polyneuropathy associated with type 2 diabetes mellitus (HCC) (I73.9) PAD (peripheral artery disease) ([facility]) Plan: Patient was seen and evaluated. Nails 1-5 bilateral were debrided in length and thickness. Discussed removal of toenails however, he likely would have difficulty healing. He has elected to continue with pallitative care. Patient was instructed on the continued importance of diabetic foot care along with proper diet and keeping their blood sugar under control to prevent complications. Patient is to RTC in 3-4 months. Vipul Brady DPM [facility] 03-29-2023 Note HNO ID: [id number] Author: Chelsie Bradshaw LPN Service: ? Author Type: LICENSED NURSE Type: Progress Notes Filed: 03/29/2023 2:23 PM Note Text: AMB ROOMING INTAKE FLOWSHEET DATA Pain Pain Level: 3 Pain Location: Other: See Comment (bilateral feet) Description: Sharp Duration Units: Years Frequency: Intermittent Intervention/Comfort measure: Reposition, Relaxation Patient presents with: Left Foot - Established Patient, Follow Up, Pain Right Foot - Established Patient, Follow Up, Diabetic Foot Care, Pain Chelsie Bradshaw LPN [facility] 03-29-2023 History of Presen t illness Narrative Last saw pcp: 07/04/22 Subjective: Patient presents to clinic c/o painful toenails. They state that the nails are especially painful with shoe gear and pressure. Patient states that nails 1-5 b/l are painful. Patient admits to being diabetic. No other pedal complaints at this time. Patient states no change in medications or medical history since last visit. Objective: Patient presents to clinic ambulating in diabetic shoes Vasc: DP and PT pulses are nonpalpable bilateral. CFT is less than 5 seconds bilateral. Skin temperature is warm to cool proximal to distal bilateral. There is mild edema or varicosities noted. Neuro: Protective sensation is intact to the foot and toes when tested with the 5.07 SWM bilateral. Vibratory sensation is decreased at the hallux IPJ bilateral. The hallux is downgoing bilateral. Derm: Nails 1-5 b/l are painful, discolored-yellow, thick, crumbly, dystrophic and with subungal debris. Skin is of normal turgor, texture and hair growth is absent bilateral. There are no hyperkeratosis, ulcerations, scars, verruca or other lesions noted. Ortho: Muscle strength is 5/5 for all pedal groups tested. Ankle joint DF is decreased with the knee extended with no pain or crepitus noted. 1st MPJ ROM is decreased bilateral. Assessment: (B35.1) Onychomycosis (primary encounter diagnosis) (M79.674) Pain in toe of right foot (M79.675) Pain in toe of left foot (E11.42) Diabetic polyneuropathy associated with type 2 diabetes mellitus (HCC) (I73.9) PAD (peripheral artery disease) ([facility]) Plan: Patient was seen and evaluated. Nails 1-5 bilateral were debrided in length and thickness. Discussed removal of toenails however, he likely would have difficulty healing. He has elected to continue with pallitative care. Patient was instructed on the continued importance of diabetic foot care along with proper diet and keeping their blood sugar under control to prevent complications. Patient is to RTC in 3-4 months. Vipul Brady DPM AMB ROOMING INTAKE FLOWSHEET DATA Pain Pain Level: 3 Pain Location: Other: See Comment (bilateral feet) Description: Sharp Duration Units: Years Frequency: Intermittent Intervention/Comfort measure: Reposition, Relaxation Patient presents with: Left Foot - Established Patient, Follow Up, Pain Right Foot - Established Patient, Follow Up, Diabetic Foot Care, Pain Chelsie Bradshaw LPN documented in this encounter [facility] 03-29-2023 Instructions Vipul Brady - 03/29/2023 2:11 PM EDT Diabetes Foot Care Instructions When you have diabetes, proper foot care is very important. Poor foot care may lead to amputation of a foot or leg. As a person with diabetes, you are more vulnerable to foot problems, because diabetes can damage your nerves and reduce blood flow to your feet. Here are some diabetes foot care tips to follow: Wash and Dry Your Feet Daily Use mild soaps Use warm water Pat your skin dry; do not rub. Thoroughly dry your feet. After washing, use lotion on your feet to prevent cracking. Do not put lotion between your toes. Examine Your Feet Each Day Check the tops and bottoms of your feet. Have someone else look at your feet if you cannot see them. Check for dry, cracked skin. Look for blisters, cuts, scratches, or other sores. Check for redness, increased warmth, or tenderness when touching any area of your feet. Check for ingrown toenails, corns, and calluses. If you get a blister or sore from your shoes, do not pop it. Apply a bandage and wear a different pair of shoes. Take Care of Your Toenails Cut toenails after bathing, when they are soft. Cut toenails straight across and smooth with a nail file. Avoid cutting into the corners of toes. Do not cut cuticles. If you have neuropathy (or decreased sensation in your feet) a medical assisting instructor should always cut your toenails. Be Careful When Exercising Walk and exercise in comfortable shoes. Do not exercise when you have open sores on your feet. Protect Your Feet With Shoes and Socks Never go barefoot. Always protect your feet by wearing shoes or hard-soled slippers or footwear. Avoid shoes with high heels and pointed toes. Avoid shoes that expose your toes or heels (such as open-toed shoes or sandals). These types of shoes increase your risk for injury and potential infections. Try on new footwear with the type of socks you usually wear. Do not wear new shoes for more than an hour at a time. Change your socks daily. Look and feel inside your shoes before putting them on to make sure there are no foreign objects or rough areas. Avoid tight socks. Wear natural-fiber socks (cotton, wool, or a cotton-wool blend). Wear special shoes if your health care provider recommends them. Wear shoes/boots that will protect your feet from various weather conditions (cold, moisture, etc.). Make sure your shoes fit properly. If you have neuropathy (nerve damage), you may not notice that your shoes are too tight. Perform the footwear test described below. Footwear Test Use this simple test to see if your shoes fit correctly: Stand on a piece of paper. (Make sure you are standing and not sitting, because your foot changes shape when you stand.) Trace the outline of your foot. Trace the outline of your shoe. Compare the tracings: Is the shoe too narrow? Is your foot crammed into the shoe? The shoe should be at least 1/2 inch longer than your longest toe and as wide as your foot. Proper Shoe Choices The following types of shoes are best for people with diabetes Closed toes and heels Leather uppers without a seam inside At least 1/2 inch extra space at the end of your longest toe Inside of shoe should be soft with no rough areas Outer sole should be made of stiff material Shoes should be at least as wide as your feet Tips for Foot Care in Diabetes Don't wait to treat a minor foot problem if you have diabetes. Follow your health care provider's guidelines and first aid guidelines. Report foot injuries and infections to your health care provider immediately. Check water temperature with your elbow, not your foot. Do not use a heating pad on your feet. Do not cross your legs. Do not self-treat your corns, calluses, or other foot problems. Go to your health care provider or medical assisting instructor to treat these conditions. documented in this encounter [facility] 03-28-2023 Miscellaneous Notes Spoke with Woody to see how his legs were feeling and if he was having any increasing symptoms. Explained what Dr Mallory could see from imported CT scan and that she could have a CT with runoff ordered to look further. He said he is trying something else elsewhere and and would call us to let us know if he felt like things were not improving or getting worse. Encounter closed. JOSE Rico CT abdomen/pelvis with contrast imported from [facility] () for review. Woody would like to be called with results. Please review and advise. JOSE Rico documented in this encounter [facility] 02-05-2023 Miscellaneous Notes Opened in error documented in this encounter [facility] 02-05-2023 Note HNO ID: [id number] Author: Eliza Mallory DO Service: Vascular Surgery Author Type: Physician Type: Progress Notes Filed: 02/15/2023 1:21 PM Note Text: NAME: WOODY HERNANDES [facility] NO: [id number] DATE OF SERVICE: 02/05/2023 Subjective: Mr. Hernandes is here to follow up on peripheral arterial disease. Since our last visit, he had multiple admissions and evaluations in the ER. He has noticed his claudication is progressively getting shorter and shorter bilaterally and this now is starting to impact his day-to-day activities. He denies rest pain or tissue loss. Objective: His vital signs are stable. He is in no distress. He has nonpalpable distal pulses. No ulcerations or tissue loss. It should be noted that he cut out salt and has had a significant weight loss and his edema is better controlled due to this. Reviewed his duplex. He ABIs have dropped slightly bilaterally. His MELISSA on the right is 0.78 and the left is 0.56. 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 Assessment/Plan: Peripheral arterial disease with short distance claudication. We said he probably had a CT scan with contrast at [place]. We will review that and follow up afterwards, as his pain is getting progressive worse and worse and he does barely any ambulation. He may benefit from intervention pending review of his scans. He is agreeable to this plan. We will call him once I am able to see his CT from [place]. Eliza Mallory D.O. [id number] Audio #: [id number] Date Dictated: 02/05/2023 08:25:11 Date Typed: 02/08/2023 09:08:43 Date Revised: [facility] 02-05-2023 Note HNO ID: [id number] Author: Eliza Mallory DO Service: ? Author Type: Physician Type: Progress Notes Filed: 02/05/2023 10:32 AM Note Text: This office note has been dictated. Eliza Mallory DO [facility] 02-05-2023 History of Presen t illness Narrative This office note has been dictated. Eliza Mallory DO documented in this encounter [facility] 12-14-2022 Note HNO ID: [id number] Author: Vipul Brady Service: ? Author Type: Physician Type: Progress Notes Filed: 12/14/2022 2:20 PM Note Text: Last time saw PCP: not documented in chart Subjective: Patient presents to clinic c/o painful toenails. They state that the nails are especially painful with shoe gear and pressure. Patient states that nails 1-5 b/l are painful. Patient admits to being diabetic. No other pedal complaints at this time. Patient states no change in medications or medical history since last visit. Objective: Patient presents to clinic ambulating in [facility] Vasc: DP and PT pulses are nonpalpable bilateral. CFT is less than 5 seconds bilateral. Skin temperature is warm to cool proximal to distal bilateral. There is mild edema or varicosities noted. Non-Invasive Vascular Laboratory [facility] Lower Extremity Arterial Physiology Study Bilateral/Complete Date of service/time: 01/08/2022 8:40:05 AM Name: MR. WOODY HERNANDES Date of : 1935 Age: 86 years Gender: M Clinical Indication Aortobiiliac graft. Right common femoral artery endarterectomy and profundoplasty 08/05/2018. TECHNIQUE -------- An arterial physiological examination was performed, including measurement of blood pressures using continuous wave Doppler and recording of plethysmographic with or without Doppler waveforms at the below-mentioned limb segments. FINDINGS -------- RIGHT SIDE AT REST Right Doppler Waveforms Dorsalis pedis: Monophasic. Post tibial: Monophasic. Right Pressures Brachial: 149 mmHg Ankle dorsalis pedis: 125 mmHg MELISSA: 0.84 Ankle posterior tibial: 130 mmHg MELISSA: 0.87 Digit: 90 mmHg Right PVR Waveforms Ankle: Mildly dampened. Transmetatarsal: Mildly dampened. Digit: Mildly dampened. LEFT SIDE AT REST Left Doppler Waveforms Dorsalis pedis: Monophasic. Post tibial: Monophasic. Left Pressures Brachial: 145 mmHg Ankle dorsalis pedis: 96 mmHg MELISSA: 0.64 Ankle posterior tibial: 102 mmHg MELISSA: 0.68 Digit: 97 mmHg Left PVR Waveforms Ankle: Mildly dampened. Transmetatarsal: Mildly dampened. Digit: Mildly dampened. IMPRESSION Compared to prior study of 12/20/2020, right ankle brachial index was 0.81 and left was 0.63. RIGHT SIDE Resting right ankle brachial index: 0.87 Right toe brachial index: 0.60 Abnormal ankle brachial index at rest diagnostic of peripheral artery disease. Abnormal toe brachial index at rest is evidence of peripheral artery disease. Right ankle: Mild disease at rest. LEFT SIDE Resting left ankle brachial index: 0.68 Left toe brachial index: 0.65 Abnormal ankle brachial index at rest diagnostic of peripheral artery disease. Abnormal toe brachial index at rest is evidence of peripheral artery disease. Left ankle: Moderate disease at rest. Technologist: Scarlet VASQUEZT, RDMS Ordering physician: ELIZA MALLORY Interpreting physician: RANJEET Clements DO : Neuro: Protective sensation is absent to the foot and toes when tested with the 5.07 SWM bilateral. Vibratory sensation is absent at the hallux IPJ bilateral. The hallux is downgoing bilateral. Derm: Nails 1-5 b/l are painful, discolored-yellow, thick, crumbly, dystrophic and with subungal debris. Skin is thin, dry and pallor and hair growth is absent bilateral. There are no hyperkeratosis, ulcerations, scars, verruca or other lesions noted. Ortho: Muscle strength is 5/5 for all pedal groups tested. Ankle joint DF is decreased with the knee extended with no pain or crepitus noted. 1st MPJ ROM is decreased bilateral. Assessment: (B35.1) Onychomycosis (primary encounter diagnosis) (M79.674) Pain in toe of right foot (M79.675) Pain in toe of left foot (E11.42) Diabetic polyneuropathy associated with type 2 diabetes mellitus (HCC) (I73.9) PAD (peripheral artery disease) ([facility]) Plan: Patient was seen and evaluated. Nails 1-5 bilateral were debrided in length and thickness. Small bleed to left 2nd toe. Patient was instructed on the continued importance of diabetic foot care along with proper diet and keeping their blood sugar under control to prevent complications. Patient is to RTC in 3-4 months. Vipul Brady DPM [facility] 12-14-2022 Note HNO ID: [id number] Author: Chelsie Bradshaw LPN Service: ? Author Type: LICENSED NURSE Type: Progress Notes Filed: 12/14/2022 2:20 PM Note Text: AMB ROOMING INTAKE FLOWSHEET DATA Patient presents with: Left Foot - Established Patient, Follow Up, Diabetic Foot Care Right Foot - Established Patient, Follow Up, Diabetic Foot Care Chelsie Bradshaw LPN [facility] 12-14-2022 History of Presen t illness Narrative Last time saw PCP: not documented in chart Subjective: Patient presents to clinic c/o painful toenails. They state that the nails are especially painful with shoe gear and pressure. Patient states that nails 1-5 b/l are painful. Patient admits to being diabetic. No other pedal complaints at this time. Patient states no change in medications or medical history since last visit. Objective: Patient presents to clinic ambulating in sneakers Vasc: DP and PT pulses are nonpalpable bilateral. CFT is less than 5 seconds bilateral. Skin temperature is warm to cool proximal to distal bilateral. There is mild edema or varicosities noted. Non-Invasive Vascular Laboratory [facility] Lower Extremity Arterial Physiology Study Bilateral/Complete Date of service/time: 01/08/2022 8:40:05 AM Name: MR. WOODY HERNANDES Date of : 1935 Age: 86 years Gender: M Clinical Indication Aortobiiliac graft. Right common femoral artery endarterectomy and profundoplasty 08/05/2018. TECHNIQUE -------- An arterial physiological examination was performed, including measurement of blood pressures using continuous wave Doppler and recording of plethysmographic with or without Doppler waveforms at the below-mentioned limb segments. FINDINGS -------- RIGHT SIDE AT REST Right Doppler Waveforms Dorsalis pedis: Monophasic. Post tibial: Monophasic. Right Pressures Brachial: 149 mmHg Ankle dorsalis pedis: 125 mmHg MELISSA: 0.84 Ankle posterior tibial: 130 mmHg MELISSA: 0.87 Digit: 90 mmHg Right PVR Waveforms Ankle: Mildly dampened. Transmetatarsal: Mildly dampened. Digit: Mildly dampened. LEFT SIDE AT REST Left Doppler Waveforms Dorsalis pedis: Monophasic. Post tibial: Monophasic. Left Pressures Brachial: 145 mmHg Ankle dorsalis pedis: 96 mmHg MELISSA: 0.64 Ankle posterior tibial: 102 mmHg MELISSA: 0.68 Digit: 97 mmHg Left PVR Waveforms Ankle: Mildly dampened. Transmetatarsal: Mildly dampened. Digit: Mildly dampened. IMPRESSION Compared to prior study of 12/20/2020, right ankle brachial index was 0.81 and left was 0.63. RIGHT SIDE Resting right ankle brachial index: 0.87 Right toe brachial index: 0.60 Abnormal ankle brachial index at rest diagnostic of peripheral artery disease. Abnormal toe brachial index at rest is evidence of peripheral artery disease. Right ankle: Mild disease at rest. LEFT SIDE Resting left ankle brachial index: 0.68 Left toe brachial index: 0.65 Abnormal ankle brachial index at rest diagnostic of peripheral artery disease. Abnormal toe brachial index at rest is evidence of peripheral artery disease. Left ankle: Moderate disease at rest. Technologist: Scarlet Obrien RVT, RDMS Ordering physician: ELIZA MALLORY Interpreting physician: RANJEET Clements DO : Neuro: Protective sensation is absent to the foot and toes when tested with the 5.07 SWM bilateral. Vibratory sensation is absent at the hallux IPJ bilateral. The hallux is downgoing bilateral. Derm: Nails 1-5 b/l are painful, discolored-yellow, thick, crumbly, dystrophic and with subungal debris. Skin is thin, dry and pallor and hair growth is absent bilateral. There are no hyperkeratosis, ulcerations, scars, verruca or other lesions noted. Ortho: Muscle strength is 5/5 for all pedal groups tested. Ankle joint DF is decreased with the knee extended with no pain or crepitus noted. 1st MPJ ROM is decreased bilateral. Assessment: (B35.1) Onychomycosis (primary encounter diagnosis) (M79.674) Pain in toe of right foot (M79.675) Pain in toe of left foot (E11.42) Diabetic polyneuropathy associated with type 2 diabetes mellitus (HCC) (I73.9) PAD (peripheral artery disease) ([facility]) Plan: Patient was seen and evaluated. Nails 1-5 bilateral were debrided in length and thickness. Small bleed to left 2nd toe. Patient was instructed on the continued importance of diabetic foot care along with proper diet and keeping their blood sugar under control to prevent complications. Patient is to RTC in 3-4 months. Vipul Brady DPM AMB ROOMING INTAKE FLOWSHEET DATA Patient presents with: Left Foot - Established Patient, Follow Up, Diabetic Foot Care Right Foot - Established Patient, Follow Up, Diabetic Foot Care Chelsie Bradshaw LPN documented in this encounter [facility] 12-14-2022 Instructions Vipul Brady - 12/14/2022 2:06 PM EST Diabetes Foot Care Instructions When you have diabetes, proper foot care is very important. Poor foot care may lead to amputation of a foot or leg. As a person with diabetes, you are more vulnerable to foot problems, because diabetes can damage your nerves and reduce blood flow to your feet. Here are some diabetes foot care tips to follow: Wash and Dry Your Feet Daily Use mild soaps Use warm water Pat your skin dry; do not rub. Thoroughly dry your feet. After washing, use lotion on your feet to prevent cracking. Do not put lotion between your toes. Examine Your Feet Each Day Check the tops and bottoms of your feet. Have someone else look at your feet if you cannot see them. Check for dry, cracked skin. Look for blisters, cuts, scratches, or other sores. Check for redness, increased warmth, or tenderness when touching any area of your feet. Check for ingrown toenails, corns, and calluses. If you get a blister or sore from your shoes, do not pop it. Apply a bandage and wear a different pair of shoes. Take Care of Your Toenails Cut toenails after bathing, when they are soft. Cut toenails straight across and smooth with a nail file. Avoid cutting into the corners of toes. Do not cut cuticles. If you have neuropathy (or decreased sensation in your feet) a medical assisting instructor should always cut your toenails. Be Careful When Exercising Walk and exercise in comfortable shoes. Do not exercise when you have open sores on your feet. Protect Your Feet With Shoes and Socks Never go barefoot. Always protect your feet by wearing shoes or hard-soled slippers or footwear. Avoid shoes with high heels and pointed toes. Avoid shoes that expose your toes or heels (such as open-toed shoes or sandals). These types of shoes increase your risk for injury and potential infections. Try on new footwear with the type of socks you usually wear. Do not wear new shoes for more than an hour at a time. Change your socks daily. Look and feel inside your shoes before putting them on to make sure there are no foreign objects or rough areas. Avoid tight socks. Wear natural-fiber socks (cotton, wool, or a cotton-wool blend). Wear special shoes if your health care provider recommends them. Wear shoes/boots that will protect your feet from various weather conditions (cold, moisture, etc.). Make sure your shoes fit properly. If you have neuropathy (nerve damage), you may not notice that your shoes are too tight. Perform the footwear test described below. Footwear Test Use this simple test to see if your shoes fit correctly: Stand on a piece of paper. (Make sure you are standing and not sitting, because your foot changes shape when you stand.) Trace the outline of your foot. Trace the outline of your shoe. Compare the tracings: Is the shoe too narrow? Is your foot crammed into the shoe? The shoe should be at least 1/2 inch longer than your longest toe and as wide as your foot. Proper Shoe Choices The following types of shoes are best for people with diabetes Closed toes and heels Leather uppers without a seam inside At least 1/2 inch extra space at the end of your longest toe Inside of shoe should be soft with no rough areas Outer sole should be made of stiff material Shoes should be at least as wide as your feet Tips for Foot Care in Diabetes Don't wait to treat a minor foot problem if you have diabetes. Follow your health care provider's guidelines and first aid guidelines. Report foot injuries and infections to your health care provider immediately. Check water temperature with your elbow, not your foot. Do not use a heating pad on your feet. Do not cross your legs. Do not self-treat your corns, calluses, or other foot problems. Go to your health care provider or medical assisting instructor to treat these conditions. documented in this encounter [facility] 09-06-2022 History of Presen t illness Narrative Last time saw pcp: not documented in chart Subjective: Patient presents to clinic c/o painful toenails. They state that the nails are especially painful with shoe gear and pressure. Patient states that nails 1-5 b/l are painful. Patient admits to being diabetic. No other pedal complaints at this time. Patient states no change in medications or medical history since last visit. Objective: Patient presents to clinic ambulating in diabetic shoes Vasc: DP and PT pulses are nonpalpable bilateral. CFT is less than 5 seconds bilateral. Skin temperature is warm to cool proximal to distal bilateral. There is mild edema or varicosities noted. Neuro: Protective sensation is absent to the foot and toes when tested with the 5.07 SWM bilateral. Vibratory sensation is absent at the hallux IPJ bilateral. The hallux is downgoing bilateral. Derm: Nails 1-5 b/l are painful, discolored-yellow, thick, crumbly, dystrophic and with subungal debris. Skin is of normal turgor, texture and hair growth is absent bilateral. There are no hyperkeratosis, ulcerations, scars, verruca or other lesions noted. Ortho: Muscle strength is 5/5 for all pedal groups tested. Ankle joint DF is decreased with the knee extended with no pain or crepitus noted. 1st MPJ ROM is decreased bilateral. Assessment: (B35.1) Onychomycosis (primary encounter diagnosis) (M79.674) Pain in toe of right foot (M79.675) Pain in toe of left foot (E11.42) Diabetic polyneuropathy associated with type 2 diabetes mellitus (HCC) (I73.9) PAD (peripheral artery disease) ([facility]) Plan: Patient was seen and evaluated. Nails 1-5 bilateral were debrided in length and thickness. Patient was instructed on the continued importance of diabetic foot care along with proper diet and keeping their blood sugar under control to prevent complications. Patient is to RTC in 3-4 months. Vipul Brady DPM Patient presents with: Right Foot - Established Patient, Follow Up, nail care Left Foot - Established Patient, Follow Up, nail care Patient presents for nail care. Denies any pain in his feet at this time. documented in this encounter [facility] 09-06-2022 Instructions Vipul Brady - 09/06/2022 11:01 AM EST Diabetes Foot Care Instructions When you have diabetes, proper foot care is very important. Poor foot care may lead to amputation of a foot or leg. As a person with diabetes, you are more vulnerable to foot problems, because diabetes can damage your nerves and reduce blood flow to your feet. Here are some diabetes foot care tips to follow: Wash and Dry Your Feet Daily Use mild soaps Use warm water Pat your skin dry; do not rub. Thoroughly dry your feet. After washing, use lotion on your feet to prevent cracking. Do not put lotion between your toes. Examine Your Feet Each Day Check the tops and bottoms of your feet. Have someone else look at your feet if you cannot see them. Check for dry, cracked skin. Look for blisters, cuts, scratches, or other sores. Check for redness, increased warmth, or tenderness when touching any area of your feet. Check for ingrown toenails, corns, and calluses. If you get a blister or sore from your shoes, do not pop it. Apply a bandage and wear a different pair of shoes. Take Care of Your Toenails Cut toenails after bathing, when they are soft. Cut toenails straight across and smooth with a nail file. Avoid cutting into the corners of toes. Do not cut cuticles. If you have neuropathy (or decreased sensation in your feet) a medical assisting instructor should always cut your toenails. Be Careful When Exercising Walk and exercise in comfortable shoes. Do not exercise when you have open sores on your feet. Protect Your Feet With Shoes and Socks Never go barefoot. Always protect your feet by wearing shoes or hard-soled slippers or footwear. Avoid shoes with high heels and pointed toes. Avoid shoes that expose your toes or heels (such as open-toed shoes or sandals). These types of shoes increase your risk for injury and potential infections. Try on new footwear with the type of socks you usually wear. Do not wear new shoes for more than an hour at a time. Change your socks daily. Look and feel inside your shoes before putting them on to make sure there are no foreign objects or rough areas. Avoid tight socks. Wear natural-fiber socks (cotton, wool, or a cotton-wool blend). Wear special shoes if your health care provider recommends them. Wear shoes/boots that will protect your feet from various weather conditions (cold, moisture, etc.). Make sure your shoes fit properly. If you have neuropathy (nerve damage), you may not notice that your shoes are too tight. Perform the footwear test described below. Footwear Test Use this simple test to see if your shoes fit correctly: Stand on a piece of paper. (Make sure you are standing and not sitting, because your foot changes shape when you stand.) Trace the outline of your foot. Trace the outline of your shoe. Compare the tracings: Is the shoe too narrow? Is your foot crammed into the shoe? The shoe should be at least 1/2 inch longer than your longest toe and as wide as your foot. Proper Shoe Choices The following types of shoes are best for people with diabetes Closed toes and heels Leather uppers without a seam inside At least 1/2 inch extra space at the end of your longest toe Inside of shoe should be soft with no rough areas Outer sole should be made of stiff material Shoes should be at least as wide as your feet Tips for Foot Care in Diabetes Don't wait to treat a minor foot problem if you have diabetes. Follow your health care provider's guidelines and first aid guidelines. Report foot injuries and infections to your health care provider immediately. Check water temperature with your elbow, not your foot. Do not use a heating pad on your feet. Do not cross your legs. Do not self-treat your corns, calluses, or other foot problems. Go to your health care provider or medical assisting instructor to treat these conditions. documented in this encounter [facility] 05-31-2022 History of Presen t illness Narrative Last saw Dominique Reese: 05/14/22 Subjective: Patient presents to clinic c/o painful toenails. They state that the nails are especially painful with shoe gear and pressure. Patient states that nails 1-5 b/l are painful. Patient admits to being diabetic. No other pedal complaints at this time. Patient states no change in medications or medical history since last visit. Objective: Patient presents to clinic ambulating in [facility] Vasc: DP and PT pulses are faintly palpable bilateral. CFT is less than 5 seconds bilateral. Skin temperature is warm to cool proximal to distal bilateral. There is mild edema or varicosities noted. Neuro: Protective sensation is intact to the foot and toes when tested with the 5.07 SWM bilateral. Vibratory sensation is decreased at the hallux IPJ bilateral. The hallux is downgoing bilateral. Derm: Nails 1-5 b/l are painful, discolored-yellow, thick, crumbly, dystrophic and with subungal debris. Skin is of normal turgor, texture and hair growth is present bilateral. There are no hyperkeratosis, ulcerations, scars, verruca or other lesions noted. Ortho: Muscle strength is 5/5 for all pedal groups tested. Ankle joint DF is decreased with the knee extended with no pain or crepitus noted. 1st MPJ ROM is decreased bilateral. Assessment: (B35.1) Onychomycosis (primary encounter diagnosis) (M79.674) Pain in toe of right foot (M79.675) Pain in toe of left foot (E11.42) Diabetic polyneuropathy associated with type 2 diabetes mellitus (HCC) Plan: Patient was seen and evaluated. Nails 1-5 bilateral were debrided in length and thickness. Patient was instructed on the continued importance of diabetic foot care along with proper diet and keeping their blood sugar under control to prevent complications. Patient is to RTC in 3-4 months. Vipul Brady DPM documented in this encounter [facility] 05-31-2022 Instructions Vipul Brady - 05/31/2022 12:10 PM EDT Diabetes Foot Care Instructions When you have diabetes, proper foot care is very important. Poor foot care may lead to amputation of a foot or leg. As a person with diabetes, you are more vulnerable to foot problems, because diabetes can damage your nerves and reduce blood flow to your feet. Here are some diabetes foot care tips to follow: Wash and Dry Your Feet Daily Use mild soaps Use warm water Pat your skin dry; do not rub. Thoroughly dry your feet. After washing, use lotion on your feet to prevent cracking. Do not put lotion between your toes. Examine Your Feet Each Day Check the tops and bottoms of your feet. Have someone else look at your feet if you cannot see them. Check for dry, cracked skin. Look for blisters, cuts, scratches, or other sores. Check for redness, increased warmth, or tenderness when touching any area of your feet. Check for ingrown toenails, corns, and calluses. If you get a blister or sore from your shoes, do not pop it. Apply a bandage and wear a different pair of shoes. Take Care of Your Toenails Cut toenails after bathing, when they are soft. Cut toenails straight across and smooth with a nail file. Avoid cutting into the corners of toes. Do not cut cuticles. If you have neuropathy (or decreased sensation in your feet) a medical assisting instructor should always cut your toenails. Be Careful When Exercising Walk and exercise in comfortable shoes. Do not exercise when you have open sores on your feet. Protect Your Feet With Shoes and Socks Never go barefoot. Always protect your feet by wearing shoes or hard-soled slippers or footwear. Avoid shoes with high heels and pointed toes. Avoid shoes that expose your toes or heels (such as open-toed shoes or sandals). These types of shoes increase your risk for injury and potential infections. Try on new footwear with the type of socks you usually wear. Do not wear new shoes for more than an hour at a time. Change your socks daily. Look and feel inside your shoes before putting them on to make sure there are no foreign objects or rough areas. Avoid tight socks. Wear natural-fiber socks (cotton, wool, or a cotton-wool blend). Wear special shoes if your health care provider recommends them. Wear shoes/boots that will protect your feet from various weather conditions (cold, moisture, etc.). Make sure your shoes fit properly. If you have neuropathy (nerve damage), you may not notice that your shoes are too tight. Perform the footwear test described below. Footwear Test Use this simple test to see if your shoes fit correctly: Stand on a piece of paper. (Make sure you are standing and not sitting, because your foot changes shape when you stand.) Trace the outline of your foot. Trace the outline of your shoe. Compare the tracings: Is the shoe too narrow? Is your foot crammed into the shoe? The shoe should be at least 1/2 inch longer than your longest toe and as wide as your foot. Proper Shoe Choices The following types of shoes are best for people with diabetes Closed toes and heels Leather uppers without a seam inside At least 1/2 inch extra space at the end of your longest toe Inside of shoe should be soft with no rough areas Outer sole should be made of stiff material Shoes should be at least as wide as your feet Tips for Foot Care in Diabetes Don't wait to treat a minor foot problem if you have diabetes. Follow your health care provider's guidelines and first aid guidelines. Report foot injuries and infections to your health care provider immediately. Check water temperature with your elbow, not your foot. Do not use a heating pad on your feet. Do not cross your legs. Do not self-treat your corns, calluses, or other foot problems. Go to your health care provider or medical assisting instructor to treat these conditions. documented in this encounter [facility] 05-25-2022 Instructions Emeka Horn MD - 05/25/2022 4:55 PM EDT ISOSORBIDE MONONITRATE 30 MG DAILY is prescribed from here in [facility]. CHECK WITH DR. MOORE IF TAMSULOSIN (Flomax) prescribed from the ER, is still needed. documented in this encounter [facility] 05-25-2022 History of Presen t illness Narrative This note was created using [employer]. Subjective Transitional Care Management Progress Note The patients TCM visit was performed within the 14 days of discharge. Patient's Date of discharge: 05/16/2022 Date of initial coordinator contact after discharge: 05/18/2022 Discharge diagnosis: acute respiratory failure with hypoxia, pulmonary edema, HFpREF, hypertensive emergency. Medication review completed Yes In follow-up of hospitalization, Woody Hernandes is a 86 year old male with the chief complaint of Transition of Care. I have reviewed the patient s last hospital course including diagnostic testing performed during this hospitalization, their discharge medications, and my assessment and plan with the patient and present at today s visit. He was admitted 05/15/22 with dyspnea, hypoxemia, pulmonary edema, HFpREF, hypertensive emergency. His medications were adjusted and he was diuresed with furosemide. He responded and was discharged on medications. He was back in the ER for COPD and CHF on 05/22/22 and discharged home. Woody and spouse voiced frustration. His overall condition was going downhill. After his TCU stay for rehab s/p TURP, he has been to the ER for various issues including constipation, and urine retention. 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 Moore, who proceeded with what I construed to be a urethral dilatation. However, he was also found to have neurogenic bladder and was started on self straight catheterization 4 times a day. He was on cancellation list for colonoscopy. Woody and spouse voiced frustration about deteriorating conditions overall, frequent ER visits, polypharmacy. They were emphatic his blood pressure and heart medications only come from [facility]. Several adjustments have transpired due to events, and he also complained of dizziness. Review of Systems Constitutional: Negative for fever. Respiratory: Negative. Cardiovascular: Negative. Gastrointestinal: Negative. Genitourinary: Negative. Neurological: Negative for dizziness and light-headedness. 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 acetaminophen (TYLENOL) 500 mg tablet Take 500 mg by mouth every 8 hours as needed. albuterol HFA (PROVENTIL HFA, VENTOLIN HFA) 90 mcg/actuation inhaler Inhale 2 Puffs as instructed. tamsulosin (FLOMAX) 0.4 mg Take 0.4 mg by mouth once daily. budesonide-formoterol (SYMBICORT) 160-4.5 mcg/actuation inhaler TWICE A DAY montelukast (SINGULAIR) 10 mg tablet TAKE 1 TABLET BY MOUTH DAILY AT BEDTIME. FOR NASAL ALLERGIES. metFORMIN (GLUCOPHAGE) 850 mg tablet Take 1 tablet by mouth twice daily with meals. isosorbide mononitrate ER (IMDUR) 30 mg 24 hr tablet Take 1 tablet by mouth once daily. pantoprazole DR (PROTONIX) 40 mg tablet TAKE 1 TABLET BY MOUTH DAILY BEFORE BREAKFAST. TAKE ON EMPTY STOMACH, 1/2 HR BEFORE MEAL. ammonium lactate (LAC-HYDRIN) 12 % cream Apply to affected area as needed. coenzyme Q10 (COENZYME Q-10) 100 mg cap capsule 100 mg once daily. ascorbic acid, vitamin C, (VITAMIN C) 500 mg tablet Take 500 mg by mouth once daily. cholecalciferol, vitamin D3, (VITAMIN D3 ORAL) Take 4,000 Units by mouth once daily. ipratropium bromide (ATROVENT) 42 mcg (0.06 %) nasal spray Use 2 Sprays in the nose four times daily. loratadine 10 mg cap Take by mouth once daily. triamcinolone acetonide (NASACORT AQ) 55 mcg nasal inhaler Use 2 Sprays in the nose once daily. atorvastatin (LIPITOR) 40 mg tablet Take 1 tablet by mouth every other day. At bedtime for cholesterol. nitroglycerin sublingual (NITROSTAT) 0.4 mg SL tablet Dissolve 1 tablet under the tongue every 5 minutes as needed for Chest Pain. Aspirin 81 mg ORAL Tab Take 1 tablet by mouth once daily. Take with food. carvedilol (COREG) 25 mg tablet Take 1 tablet by mouth twice daily. Dr. Pierre. hydrALAZINE (APRESOLINE) 100 mg tablet Take 1 tablet by mouth three times daily. Dr. Pierre. rOPINIRole (REQUIP) 0.5 mg tablet Take 1-3 tablets by mouth at bedtime as needed. Dr. Rivero peg 3350-Electrolytes (GOLYTELY) 236-22.74-6.74 -5.86 gram suspension Refer to printed prep instructions from your provider. peg 3350-Electrolytes (GOLYTELY) 236-22.74-6.74 -5.86 gram suspension Drink half the jug 1st night (2L) half the jug the second night [employer] Dx: Z74.90, R26.89, I73.9, J44.1, M54.5, G89.29 [id number]-[id number]-Ngc Palm-Min 17 (PROSTATE THERAPY) cap Take 2 Each by mouth once daily. SUPER BETA PROSTATE. COQ10, LIPOSOMAL UBIQUINOL, ORAL Take 1 tablet by mouth once daily. (Patient not taking: Reported on 05/25/2022) blood sugar diagnostic (BLOOD GLUCOSE TEST) test strip Test blood sugar(s) 2 times daily. Dx: Type 2 DM - Uncontrolled E11.65 Insulin: No No current facility-administered medications for this visit. Objective BP 171/67 Pulse 60 Temp 36.2 C (97.2 F) (Temporal) Resp 16 Wt 87.5 kg (193 lb) SpO2 95% BMI 27.69 kg/m Physical Exam Constitutional: General: He is not in acute distress. HENT: Head: Atraumatic. Eyes: Extraocular Movements: Extraocular movements intact. Conjunctiva/sclera: Conjunctivae normal. Neck: Vascular: No JVD. Cardiovascular: Rate and Rhythm: Normal rate and regular rhythm. Heart sounds: No murmur heard. No gallop. Pulmonary: Breath sounds: Normal breath sounds. No wheezing, rhonchi or rales. Abdominal: Palpations: Abdomen is soft. Tenderness: There is no abdominal tenderness. Musculoskeletal: Right lower leg: No edema. Left lower leg: No edema. Neurological: General: No focal deficit present. Mental Status: He is alert. Test results pertinent to today's visit were reviewed and discussed with the patient. Assessment and Plan 1. Respiratory failure, unspecified chronicity, unspecified whether with hypoxia or hypercapnia (HCC) - ICD9: 518.81, ICD10: J96.90 (primary diagnosis) Resolved. No oxygen needed. 2. Chronic pulmonary edema - ICD9: 514, ICD10: J81.1 Controlled. 3. Essential hypertension - ICD9: 401.9, ICD10: I10 - poor control - Patient and only wanted Tate Jennings CNP, [facility] to handle all CV medications. I reconciled medications and notified them Imdur was still being refilled from us. 4. Chronic obstructive pulmonary disease with acute exacerbation (HCC) - ICD9: 491.21, ICD10: J44.1 Stable. He will see Dr. Rivero 06/23. 5. Stage 3a chronic kidney disease (HCC) - ICD9: 585.3, ICD10: N18.31 Monitor. 6. S/P TURP (status post transurethral resection of prostate) - ICD9: V45.89, ICD10: Z90.79 I question if tamsulosin was still needed. 7. 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) - ICD9: 428.9, ICD10: I50.31 Controlled. Emeka Horn MD TRANSITION CARE MANAGEMENT (TCM) INITIAL CONTACT [employer] Provider Action/FYI: TCM Initial contact with patient post discharge, spoke to patient. Patient identified by name and . TRANSITION CARE MANAGEMENT INITIAL OUTREACH DOCUMENTATION: Date of Outreach: 05/18/2022 Outreach Attempt 1: Contact Made Date of Discharge 05/16/2022 Some recent data might be hidden SUMMARY: -Pt discharged from [facility] on 05/16/22. -Admitted for: decompensated HFPEF Do you have a hospital follow up appointment with your PCP? Appointment on 05/25/22 with pcp. Yes. Remind patient of appointment date, time, and location. If not within 14 calendar days of discharge - please reschedule accordingly. MEDICATIONS: Many patients have questions or concerns about their medications once they are home. Were you prescribed any new medications? If yes, what are those medications? Isorbide mononitrate 30 mg one twice daily Hydralozine 50 mg two three times daily Were you told to hold any medications? No Were any of your medications discontinued? If yes, what are those medications? Hydralozine 50 mg two three times daily Do you have any questions about getting or taking your medications? No Your discharge instructions/After visit Summary (AVS) are important in guiding you through the recovery process. Is there anything I might help you understand? No Do you have all the necessary equipment and supplies at home? Yes Medical records from recent hospitalization: Placed for provider to review documented in this encounter [facility] 05-14-2022 History of Presen t illness Narrative SUBJECTIVE: LDL CHOLESTEROL due on 03/27/2022 HPI Woody Hernandes is a 86 year old male. 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 HPI excerpted from previous visit: Seen by Emeka Horn MD March 2022 for s/p TURP, noted constipation. Advised docusate. He noted AE with this medication so it was discontinued. Advised Colyte or Miralax every other day. Discontinue docusate PCP noted could consider lubiprostone. Colonoscopy 2015, polyps noted, 5 year follow up recommended; completed: not yet Heartburn: no Reflux: states he has this occurs 1-3 times per week Abdominal pain: no Nausea: yes occasionally Vomiting: occasionally when bloated No choking or dysphagia noted. Diarrhea: no Constipation: notes 4-5 small caliber BMs/day; has to strain for this. Baseline: QD BMs until recently; normal size and quantity no difficulties Current remedies: miralax QD Fluid intake: 2-3 Qts Fiber intake:no supplements; limits vegetables / fruits due to difficutly chewing. Avoids raw due to difficult to chew. BRBPR: no Black tarry:no Notes bloating when constipated Notes he cut back to of liquid diet over the last 24 hours with improvement of his symptoms. Seen by general surgery or gastroeneterology since last here: Yes Dr. Mendez; did have treatment with GoLytely follow-up KUB which showed decreased fecal load. Symptoms: Currently stable, using prune juice which is ineffective. Daily BMs without abdominal bloating, nausea or vomiting currently. He notes since last seen he has had urinary retention, seen at [facility] ER then by Dr Noriega. Reports he had an obstruction, in office procedure /catheterization. Currently self cathing 3 times daily. Has 3-month follow-up with neurologist scheduled. Review of Systems Gastrointestinal: Positive for abdominal distention, constipation, nausea and vomiting. Objective BP 138/52 Pulse 63 Resp 16 Wt 89.4 kg (197 lb) SpO2 96% BMI 28.27 kg/m Physical Exam Vitals reviewed. Constitutional: Appearance: Normal appearance. HENT: Head: Normocephalic and atraumatic. Eyes: Conjunctiva/sclera: Conjunctivae normal. Cardiovascular: Rate and Rhythm: Normal rate and regular rhythm. Heart sounds: Normal heart sounds. Pulmonary: Effort: Pulmonary effort is normal. Breath sounds: Normal breath sounds. Abdominal: General: Bowel sounds are normal. There is no distension. Palpations: Abdomen is soft. There is no mass. Tenderness: There is no abdominal tenderness. There is no guarding or rebound. Musculoskeletal: Right lower leg: No edema. Left lower leg: No edema. Skin: General: Skin is warm and dry. Neurological: Mental Status: He is alert. Mental status is at baseline. ALLERGIES Allergen Reactions Felodipine Rash Levaquin [Levofloxa* Hives Pletal [Cilostazol] Itching Sulfa (Sulfonamide * Itching Medications budesonide-formoterol (SYMBICORT) 160-4.5 mcg/actuation inhaler TWICE A DAY peg 3350-Electrolytes (GOLYTELY) 236-22.74-6.74 -5.86 gram suspension Refer to printed prep instructions from your provider. peg 3350-Electrolytes (GOLYTELY) 236-22.74-6.74 -5.86 gram suspension Drink half the jug 1st night (2L) half the jug the second night montelukast (SINGULAIR) 10 mg tablet TAKE 1 TABLET BY MOUTH DAILY AT BEDTIME. FOR NASAL ALLERGIES. hydrALAZINE (APRESOLINE) 50 mg tablet Take 1 tablet by mouth twice daily. metFORMIN (GLUCOPHAGE) 850 mg tablet Take 1 tablet by mouth twice daily with meals. isosorbide mononitrate ER (IMDUR) 30 mg 24 hr tablet Take 1 tablet by mouth once daily. pantoprazole DR (PROTONIX) 40 mg tablet TAKE 1 TABLET BY MOUTH DAILY BEFORE BREAKFAST. TAKE ON EMPTY STOMACH, 1/2 HR BEFORE MEAL. ammonium lactate (LAC-HYDRIN) 12 % cream Apply to affected area as needed. [employer] Power scooter Dx: Z74.90, R26.89, I73.9, J44.1, M54.5, G89.29 Grddhm-Mrrenja-Nqw Palm-Min 17 (PROSTATE THERAPY) cap Take 2 Each by mouth once daily. SUPER BETA PROSTATE. coenzyme Q10 (COENZYME Q-10) 100 mg cap capsule 100 mg once daily. ascorbic acid, vitamin C, (VITAMIN C) 500 mg tablet Take 500 mg by mouth once daily. COQ10, LIPOSOMAL UBIQUINOL, ORAL Take 1 tablet by mouth once daily. hydroCHLOROthiazide (HYDRODIURIL, ESIDRIX) 25 mg tablet Take 25 mg by mouth once daily. blood sugar diagnostic (BLOOD GLUCOSE TEST) test strip Test blood sugar(s) 2 times daily. Dx: Type 2 DM - Uncontrolled E11.65 Insulin: No cholecalciferol, vitamin D3, (VITAMIN D3 ORAL) Take 4,000 Units by mouth once daily. carvedilol (COREG) 12.5 mg tablet Take 1 tablet by mouth twice daily. ipratropium bromide (ATROVENT) 42 mcg (0.06 %) nasal spray Use 2 Sprays in the nose four times daily. rOPINIRole (REQUIP) 0.5 mg tablet Take 0.5 mg by mouth three times daily. loratadine 10 mg cap Take by mouth once daily. triamcinolone acetonide (NASACORT) 55 mcg nasal inhaler Use 2 Sprays in the nose once daily. atorvastatin (LIPITOR) 40 mg tablet Take 1 tablet by mouth every other day. At bedtime for cholesterol. nitroglycerin sublingual (NITROSTAT) 0.4 mg SL tablet Dissolve 1 tablet under the tongue every 5 minutes as needed for Chest Pain. Aspirin 81 mg ORAL Tab Take 1 tablet by mouth once daily. Take with food. 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 Hilliard. Coronary atherosclerosis of unspecified type of vessel, inupiat or graft 06/13/2005 Diverticulitis of colon (without mention of hemorrhage)(562.11) 06/12/2005 Diverticulosis of colon 08/25/2010 Heart attack (HCC) Hypertrophy of prostate without urinary obstruction and other lower urinary tract symptoms (LUTS) 06/12/2005 Memory disturbance 07/24/2010 Mitral valve disorders(424.0) 06/12/2005 Other and unspecified hyperlipidemia 06/13/2005 Other specified disorders of arteries and arterioles (HCC) 06/12/2005 Peripheral vascular disease, unspecified (HCC) 06/12/2005 Personal history of colonic polyps 06/13/2005 Tubular adenoma. 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 S/P femoral-popliteal bypass surgery 08/07/2018 Snoring Tobacco use disorder 06/12/2005 Type II or unspecified type diabetes mellitus without mention of complication, not stated as uncontrolled 01/24/2011 Unspecified essential hypertension 06/12/2005 Venous insufficiency (chronic) (peripheral) 05/11/2015 Social History Tobacco Use Smoking status: Former Packs/day: 0.50 Years: 50.00 Pack years: 25.00 Types: Cigarettes, Cigars Quit date: 02/05/2008 Years since quittin.2 Smokeless tobacco: Never Vaping Use Vaping Use: Never used Substance Use Topics Alcohol use: Yes Comment: Rare Drug use: No ASSESSMENT/PLAN: ASSESSMENT/PLAN: 1. Chronic idiopathic constipation - ICD9: 564.00, ICD10: K59.04 (primary diagnosis) Currently controlled with prune juice. Can repeat GoLytely if needed. KUB ordered in the event abdomen needs recheck prior to colonoscopy. 2. S/P TURP (status post transurethral resection of prostate) - ICD9: V45.89, ICD10: Z90.79 Experiencing urinary retention, currently self cathing 3 times daily. Has follow-up with urologist Dr. Noriega 3. Altered bowel habits - ICD9: 787.99, ICD10: R19.4 - XR ABDOMEN 1V SUPINE Dominique Reese APRN.[employer] documented in this encounter [facility] 05-02-2022 History of Presen t illness Narrative Radiology Service Progress Note PATIENT NAME: Woody Hernandes DATE OF SERVICE: May 02, 2022 TIME: 10:39 AM PATIENT IDENTITY VERIFICATION COMPLETED USING TWO (2) IDENTIFIERS: Name and Date of confirmed by patient verbally. FALL SCREENING: Has the patient had 2 falls in the last year or 1 fall with injury or currently using an Ambulatory Assistive Device (Walker, Cane, Wheelchair, Crutches, etc.)? No PATIENT GENDER DATA: Male PATIENT RELEVANT IMPLANT DATA REVIEWED: Not Applicable RADIOLOGY DEPARTMENT: General X-ray: Exam(s) Completed: Abdomen X-Ray: Abdomen PERIPHERAL IV DATA: Not applicable SIGNED BY: RT Ezequiel(R) May 02, 2022 10:39 AM documented in this encounter [facility] 04-26-2022 History of Presen t illness Narrative Radiology Service Progress Note PATIENT NAME: Woody Hernandes DATE OF SERVICE: April 26, 2022 TIME: 2:05 PM PATIENT IDENTITY VERIFICATION COMPLETED USING TWO (2) IDENTIFIERS: Name and Date of confirmed by patient verbally. FALL SCREENING: Has the patient had 2 falls in the last year or 1 fall with injury or currently using an Ambulatory Assistive Device (Walker, Cane, Wheelchair, Crutches, etc.)? Yes, Patient High Risk for Falls What interventions were put in place to prevent falls during this visit? Increased Observations by Caregivers PATIENT GENDER DATA: Male PATIENT RELEVANT IMPLANT DATA REVIEWED: Not Applicable RADIOLOGY DEPARTMENT: General X-ray: Exam(s) Completed: Abdomen X-Ray: Abdomen PERIPHERAL IV DATA: Not applicable SIGNED BY: RT Philippe(R) April 26, 2022 2:05 PM documented in this encounter [facility] 04-26-2022 History of Presen t illness Narrative HISTORY AND PHYSICAL Woody Hernandes 1935 REFERRING PHYSICIAN: Dominique Reese APRN.[employer] OPERATOR CHIEF COMPLAINT: Consult (Constipation) HPI: The patient is a 86 year old male referred for endoscopy. Woody notes recent issues with constipation. He had been started on MiraLAX and noted no improvement in his symptoms. He presented emergency department at the end of March where he had a KUB which demonstrated significant fecal loading. He was given an enema. He also states was given a jug of GoLytely to clean him out at that time. He states that worked pretty well. He notes that he is moving his bowels now. He had colonoscopy approximately 6 years previously which demonstrated polyps The patient notes no history of upper GI complaints. Woody has undergone prior endoscopy. As noted above The patient is being seen by me today at the request of Dr. Emeka Horn MD for my opinion and advice regarding constipation and personal history of polyps. 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 Hilliard. Coronary atherosclerosis of unspecified type of vessel, inupiat or graft 06/13/2005 Diverticulitis of colon (without mention of hemorrhage)(562.11) 06/12/2005 Diverticulosis of colon 08/25/2010 Heart attack (HCC) Hypertrophy of prostate without urinary obstruction and other lower urinary tract symptoms (LUTS) 06/12/2005 Memory disturbance 07/24/2010 Mitral valve disorders(424.0) 06/12/2005 Other and unspecified hyperlipidemia 06/13/2005 Other specified disorders of arteries and arterioles (HCC) 06/12/2005 Peripheral vascular disease, unspecified (HCC) 06/12/2005 Personal history of colonic polyps 06/13/2005 Tubular adenoma. 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 S/P femoral-popliteal bypass surgery 08/07/2018 Snoring Tobacco use disorder 06/12/2005 Type II or unspecified type diabetes mellitus without mention of complication, not stated as uncontrolled 01/24/2011 Unspecified essential hypertension 06/12/2005 Venous insufficiency (chronic) (peripheral) 05/11/2015 PAST SURGICAL HISTORY Procedure Laterality Date APPENDECTOMY DONE W/OTHR MAJOR SURGERY 1998 With inguinal hernia repair [facility] INCL FLUOR GDNCE DX W/CELL WASHG SPX 09/12/2007 Bronchoscopy COLONOSCOPY FLX DX W/COLLJ SPEC WHEN PFRMD 01/2003 Colonoscopy COLONOSCOPY FLX DX W/COLLJ SPEC WHEN PFRMD 02/2005 Colonoscopy COLONOSCOPY FLX DX W/COLLJ SPEC WHEN PFRMD 12/05/2015 Colonoscopy COLSC FLX W/RMVL OF TUMOR POLYP LESION SNARE TQ 08/25/2010 Distal transverse polyp/diverticular dz CYSTOURETHROSCOPY 06/14/2004 Cystoscopy DIR RPR ANEURYSM ABDOMINAL AORTA 11/11/1998 Abd Aortic Aneurysm Repair INSERT INTRACORONARY STENT 1997 right MCA INTRODUCTION CATHETER AORTA 07/25/2010 APLL LEFT HEART CATH,PERCUTANEOUS 01/09/2012 Cardiac cath, L heart LEFT HEART CATH,PERCUTANEOUS 03/29/2014 Cardiac cath, L heart LITHOTRIPSY XTRCORP SHOCK WAVE 06/14/2004 Lithotripsy OPEN TX CLAVICULAR FRACTURE INTERNAL FIXATION 1984 right clavicle RPR 1ST INGUN HRNA AGE 5 YRS/> REDUCIBLE 05/05/1999 Hernia repair, inguinal TEAEC W/WO PATCH GRAFT DEEP PROFUNDA FEMORAL Right 08/05/2018 TRANSCATH STENT ADDN VESSEL,PERCUT 02/17/2008 Transcath stent addn vessel percut. Mid and distal RCA. TRANSCATH STENT INIT VESSEL,PERCUT 02/17/2008 Transcath stent init vessel percut, Prox. RCA. TRANSURETHRAL ELEC-SURG PROSTATECTOM 03/07/2022 Current Outpatient Medications Medication Sig budesonide-formoterol (SYMBICORT) 160-4.5 mcg/actuation inhaler TWICE A DAY montelukast (SINGULAIR) 10 mg tablet TAKE 1 TABLET BY MOUTH DAILY AT BEDTIME. FOR NASAL ALLERGIES. hydrALAZINE (APRESOLINE) 50 mg tablet Take 1 tablet by mouth twice daily. metFORMIN (GLUCOPHAGE) 850 mg tablet Take 1 tablet by mouth twice daily with meals. isosorbide mononitrate ER (IMDUR) 30 mg 24 hr tablet Take 1 tablet by mouth once daily. pantoprazole DR (PROTONIX) 40 mg tablet TAKE 1 TABLET BY MOUTH DAILY BEFORE BREAKFAST. TAKE ON EMPTY STOMACH, 1/2 HR BEFORE MEAL. ammonium lactate (LAC-HYDRIN) 12 % cream Apply to affected area as needed. [employer] Dx: Z74.90, R26.89, I73.9, J44.1, M54.5, G89.29 coenzyme Q10 (COENZYME Q-10) 100 mg cap capsule 100 mg once daily. ascorbic acid, vitamin C, (VITAMIN C) 500 mg tablet Take 500 mg by mouth once daily. hydroCHLOROthiazide (HYDRODIURIL, ESIDRIX) 25 mg tablet Take 25 mg by mouth once daily. blood sugar diagnostic (BLOOD GLUCOSE TEST) test strip Test blood sugar(s) 2 times daily. Dx: Type 2 DM - Uncontrolled E11.65 Insulin: No cholecalciferol, vitamin D3, (VITAMIN D3 ORAL) Take 4,000 Units by mouth once daily. carvedilol (COREG) 12.5 mg tablet Take 1 tablet by mouth twice daily. ipratropium bromide (ATROVENT) 42 mcg (0.06 %) nasal spray Use 2 Sprays in the nose four times daily. rOPINIRole (REQUIP) 0.5 mg tablet Take 0.5 mg by mouth three times daily. loratadine 10 mg cap Take by mouth once daily. triamcinolone acetonide (NASACORT) 55 mcg nasal inhaler Use 2 Sprays in the nose once daily. atorvastatin (LIPITOR) 40 mg tablet Take 1 tablet by mouth every other day. At bedtime for cholesterol. nitroglycerin sublingual (NITROSTAT) 0.4 mg SL tablet Dissolve 1 tablet under the tongue every 5 minutes as needed for Chest Pain. Aspirin 81 mg ORAL Tab Take 1 tablet by mouth once daily. Take with food. NIFEDIPINE ER 90 MG TAB take one tablet daily peg 3350-Electrolytes (GOLYTELY) 236-22.74-6.74 -5.86 gram suspension Refer to printed prep instructions from your provider. Rgbzys-Wbipgea-Yem Palm-Min 17 (PROSTATE THERAPY) cap Take 2 Each by mouth once daily. SUPER BETA PROSTATE. COQ10, LIPOSOMAL UBIQUINOL, ORAL Take 1 tablet by mouth once daily. No current facility-administered medications for this visit. ALLERGIES: Felodipine, Levaquin [Levofloxacin], Pletal [Cilostazol], and Sulfa (Sulfonamide Antibiotics) PERSONAL HISTORY: Social History Tobacco Use Smoking status: Former Smoker Packs/day: 0.50 Years: 50.00 Pack years: 25.00 Types: Cigarettes, Cigars Quit date: 02/05/2008 Years since quittin.2 Smokeless tobacco: Never Used Vaping Use Vaping Use: Never used Substance Use Topics Alcohol use: Yes Comment: Rare Drug use: No FAMILY HISTORY: FAMILY HISTORY Problem Relation Age of Onset Diabetes Father alive at 93 Coronary Artery Disease Father Stroke Father Hypertension Father Prostate Cancer Father Cataract Father Alzheimer's Disease Mother age 92 Arthritis Mother hip replacement Hypertension Brother Heart Brother valve replacement Lipids Brother Prostate Cancer Son 57 seed implants REVIEW OF SYMPTOMS: The review of systems data was entered by the nurse and reviewed by md Nursing Notes: Liz Murcia RN 04/26/2022 1:36 PM Signed REVIEW OF SYSTEMS: General: The patient NOTES fatigue, denies weight loss, denies weight gain, NOTES feeling hot, and NOTES feelings of cold. Eyes: The patient denies glaucoma, NOTES eye injury/surgery, wears glasses or contacts. Ear/Nose/Throat: The patient NOTES allergies, NOTES hayfever, denies ear infections, and denies bloody noses. Cardiovascular: The patient NOTES chest pain, denies heart disease, NOTES high blood pressure,NOTES cardiac stent, NOTES prior heart attack, denies irregular heart beat, NOTES high cholesterol, NOTES poor circulation, denies heart failure, other cardiac issues, NOTES claudication, denies cold feet, denies peripheral arterial stent. Respiratory: The patient denies tuberculosis, denies pneumonia, NOTES frequent cough, denies pulmonary embolism, NOTES shortness of breath, and denies coughing up blood. Gastrointestinal: The patient denies difficulty swallowing, NOTES acid reflux, denies ulcers, denies vomiting, denies jaundice/hepatitis, denies gallbladder problems, denies black or tarry stools, denies hemorrhoids, denies bleeding from rectum, denies diverticulitis, denies constipation, denies diarrhea, denies loss of stool control, and denies hernias. Kidney/Bladder: The patient NOTES kidney stones, NOTES urine infections, and denies bloody urine. Skin: The patient NOTES a history of skin cancer, denies bleeding/changing moles, and denies a history of skin rash. Neurologic: The patient denies a history of epilepsy/convulsions, denies headaches, denies head/spinal injuries, and denies stroke/TIA. Psychiatric: The patient denies psychiatric medications, denies depression, and denies voices, denies substance abuse. Endocrine: The patient denies thyroid disorders, denies diabetes, and denies hormonal problems. Hematologic: The patient denies a history of bruising, denies bleeding, and denies anemia, denies blood clots. Infections: The patient denies a history of measles and mumps, denies rheumatic fever, and denies sexually transmitted diseases. Musculoskeletal: The patient denies back pain/injury, denies back problems, NOTES sciatica, denies knee/foot trouble, denies arthritis, or denies gout. When was patient's last Mammogram screening? N/A Last Colonoscopy: 12/05/2015 Liz Murcia RN PHYSICAL EXAMINATION: General: The patient is 86 year old male, well nourished, well hydrated in no acute distress. The patient is oriented to time, place, and person. VITALS: Blood pressure 124/60, pulse 78, temperature 36.2 C (97.2 F), temperature source Temporal, resp. rate 20, height 177.8 cm (5' 10 ), weight 88 kg (194 lb), SpO2 95 %. Body mass index is 27.84 kg/m . HEENT: Normal cephalic, ataumatic, pupils are equally round, sclera are anicteric, mucous membranes are moist, oropharynx is clear. Neck has no masses, asymmetry or lymphadenopathy. Thyroid is unremarkable. Respiratory: Clear to auscultation and percussion. Normal respiratory excursion and pattern. Cardiac: Examination is regular rate and rhythm. Abdominal exam: Soft, nontender, with no palpable masses. No hepatosplenomegaly. No palpable hernias. Rectal exam: exam deferred Extremities: no clubbing, cyanosis or edema. No adenopathy. Other: LABORATORY VALUES: As Noted RADIOLOGIC STUDIES: As Noted Assessment IMPRESSION: Struve constipation, clinically improved after GoLytely administration. Personal history of colon polyps PLAN: I plan to get a KUB today to assure that he has less fecal loading. If there is still significant fecal loading I will give him a another course of GoLytely now. I plan to perform lower endoscopy. We discussed the risks and benefits of the planned endoscopy. I have informed the patient that complications can occur including failure to complete the endoscopy and perforation. The patient had the opportunity to ask questions concerning the planned endoscopy. My staff has also explained the procedure to the patient in understandable terms and has given the patient printed material concerning the procedure. The patient freely consents to surgery. I plan to use golytely bowel preparation for endoscopy Diagnoses: (K59.04) Chronic idiopathic constipation (R19.4) Altered bowel habits My findings have been communicated to Dr. Emeka Horn MD via shared medical record. This note will be forwarded to Dr. Emeka Horn MD. Return to Clinic: The patient is instructed to follow-up with me after the testing has been completed. Colton Mendez MD documented in this encounter [facility] 04-26-2022 Instructions Colton Mendez MD - 04/26/2022 1:34 PM EDT Images from the original note were not included. Bowel Preparation Instructions for: Golytely, Nulytely, Trilyte or Colyte (polyethylene glycol 3350 and electrolytes) IF YOU DO NOT FOLLOW THESE DIRECTIONS, YOUR COLONOSCOPY WILL BE CANCELLED. Manriquez Instructions: Your bowel must be empty so that your doctor can clearly view your colon. Follow all of the instructions in this handout EXACTLY as they are written. Do NOT eat any solid food the ENTIRE day before your colonoscopy. Drink only clear liquids. Buy your bowel preparation at least 5 days before your colonoscopy. TRANSPORTATION on the Day of Your Exam A responsible person MUST be present with you at Check In prior to your colonoscopy and REMAIN in the endoscopy area until you are discharged. You are NOT ALLOWED to drive, take a taxi or bus, or leave the Endoscopy Center ALONE. If you do not have a responsible driver's education instructor (family member or friend) with you to take you home, your exam cannot be done with sedation and will be cancelled. Please bring a list of all of your current medications, including any Over-the Counter medications with you. Medications If you take insulin, diabetic medications or blood thinners such as Coumadin (warfarin), Plavix (clopidogrel), Ticlid (ticlopidine hydrochloride), Agrylin (anagrelide), Xarelto (Rivaroxaban), Pradaxa (Dabigatran), Eliquis (Apixaban), and Effient (Prasugrel). You MUST call the doctors who orders those medicines for instructions on altering the dosage before your colonoscopy. All other medications should be taken the day of the exam with a sip of water including ASPIRIN. Five (5) Days Before Your Colonoscopy Do NOT take medicines that stop diarrhea - such as Imodium, Kaopectate, or Pepto Bismol. Do NOT take fiber supplements - such as Metamucil, Citrucel, or Perdiem. Do NOT take products that contain iron - such as multi-vitamins (the label lists what is in the products). Do NOT take Vitamin E. Buy the prescription bowel preparation solution at your local pharmacy or drugstore pharmacy. 09/2019 Bowel Preparation Instructions for: Golytely, Nulytely, Trilyte or Colyte (polyethylene glycol 3350 and electrolytes) Three (3) Days Before Your Colonoscopy Do NOT eat high-fiber foods - such as popcorn, beans, seeds (flax, sunflower, quinoa), multigrain bread, nuts, salad/vegetables, or fresh and dried fruit. One (1) Day Before Your Colonoscopy Only drink clear liquids the ENTIRE DAY before your colonoscopy. Do NOT eat any solid foods. Drink at least 8 ounces of clear liquids every hour after waking up. The clear liquids you can drink include: Clear Liquid (NO RED LIQUIDS) DO NOT DRINK Gatorade, Pedialyte or Powerade Clear broth or bouillon Coffee or tea (no milk or non-dairy creamer) Carbonated and non-carbonated soft drinks Mario-Aid or other fruit flavored drinks Strained fruit juices (no pulp) Jell-O, popsicles, hard candy Water Alcohol Milk or non-dairy creamers Noodles or vegetables in soup Juice with pulp Liquid you cannot see through The bowel preparation solution will be consumed in two parts. Mix the solution the evening before your colonoscopy and refrigerate before drinking. You may add the flavor pack that came with the bowel preparation. Do NOT add ice, sugar or any other flavorings to the solution. Part 1 At 6:00 PM - Evening before your colonoscopy Drink an 8-oz glass of bowel preparation every 10 minutes until finished You may continue to drink clear liquids until midnight. 2 09/2019 documented in this encounter [facility] 04-26-2022 Nurse Note REVIEW OF SYSTEMS: General: The patient NOTES fatigue, denies weight loss, denies weight gain, NOTES feeling hot, and NOTES feelings of cold. Eyes: The patient denies glaucoma, NOTES eye injury/surgery, wears glasses or contacts. Ear/Nose/Throat: The patient NOTES allergies, NOTES hayfever, denies ear infections, and denies bloody noses. Cardiovascular: The patient NOTES chest pain, denies heart disease, NOTES high blood pressure,NOTES cardiac stent, NOTES prior heart attack, denies irregular heart beat, NOTES high cholesterol, NOTES poor circulation, denies heart failure, other cardiac issues, NOTES claudication, denies cold feet, denies peripheral arterial stent. Respiratory: The patient denies tuberculosis, denies pneumonia, NOTES frequent cough, denies pulmonary embolism, NOTES shortness of breath, and denies coughing up blood. Gastrointestinal: The patient denies difficulty swallowing, NOTES acid reflux, denies ulcers, denies vomiting, denies jaundice/hepatitis, denies gallbladder problems, denies black or tarry stools, denies hemorrhoids, denies bleeding from rectum, denies diverticulitis, denies constipation, denies diarrhea, denies loss of stool control, and denies hernias. Kidney/Bladder: The patient NOTES kidney stones, NOTES urine infections, and denies bloody urine. Skin: The patient NOTES a history of skin cancer, denies bleeding/changing moles, and denies a history of skin rash. Neurologic: The patient denies a history of epilepsy/convulsions, denies headaches, denies head/spinal injuries, and denies stroke/TIA. Psychiatric: The patient denies psychiatric medications, denies depression, and denies voices, denies substance abuse. Endocrine: The patient denies thyroid disorders, denies diabetes, and denies hormonal problems. Hematologic: The patient denies a history of bruising, denies bleeding, and denies anemia, denies blood clots. Infections: The patient denies a history of measles and mumps, denies rheumatic fever, and denies sexually transmitted diseases. Musculoskeletal: The patient denies back pain/injury, denies back problems, NOTES sciatica, denies knee/foot trouble, denies arthritis, or denies gout. When was patient's last Mammogram screening? N/A Last Colonoscopy: 12/05/2015 Liz Murcia RN documented in this encounter [facility] 04-12-2022 Instructions Dominique Reese APRN.KORIN - 04/12/2022 11:16 AM EDT Drink about 64 ounces of fluid daily OK to take miralax once or twice daily as needed. OK to try metamucil gummies. Schedule appointment with general surgery to discuss colonoscopy documented in this encounter [facility] 04-12-2022 History of Presen t illness Narrative SUBJECTIVE: LDL CHOLESTEROL due on 03/27/2022 HPI Woody Hernandes is a 86 year old male. 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 Seen by Emeka Horn MD March 2022 for s/p TURP, noted constipation. Advised docusate. He noted AE with this medication so it was discontinued. Advised Colyte or Miralax every other day. Discontinue docusate PCP noted could consider lubiprostone. Colonoscopy 2015, polyps noted, 5 year follow up recommended; completed: not yet Heartburn: no Reflux: states he has this occurs 1-3 times per week Abdominal pain: no Nausea: yes occasionally Vomiting: occasionally when bloated No chking or dysphagia noted. Diarrhea: no Constipation: notes 4-5 small caliber BMs/day; has to strain for this. Baseline: QD BMs until recently; normal size and quantity no difficulties Current remedies: miralax QD Fluid intake: 2-3 Qts Fiber intake:no supplements; limits vegetables / fruits due to difficutly chewing. Avoids raw due to difficult to chew. BRBPR: no Black tarry:no Notes bloating when constipated Notes he cut back to of liquid diet over the last 24 hours with improvement of his symptoms. Review of Systems Constitutional: Negative. Gastrointestinal: Positive for abdominal distention, constipation, nausea and vomiting. Objective BP 122/58 Pulse 60 Resp 16 Wt 87.5 kg (193 lb) SpO2 96% BMI 30.23 kg/m Physical Exam Vitals reviewed. Constitutional: Appearance: Normal appearance. HENT: Head: Normocephalic and atraumatic. Eyes: Conjunctiva/sclera: Conjunctivae normal. Cardiovascular: Rate and Rhythm: Normal rate and regular rhythm. Heart sounds: Normal heart sounds. Pulmonary: Effort: Pulmonary effort is normal. Breath sounds: Normal breath sounds. Abdominal: General: Bowel sounds are normal. There is no distension. Palpations: Abdomen is soft. There is no mass. Tenderness: There is no abdominal tenderness. There is no guarding or rebound. Musculoskeletal: Right lower leg: No edema. Left lower leg: No edema. Skin: General: Skin is warm and dry. Neurological: Mental Status: He is alert. Mental status is at baseline. ALLERGIES Allergen Reactions Felodipine Rash Levaquin [Levofloxa* Hives Pletal [Cilostazol] Itching Sulfa (Sulfonamide * Itching Medications montelukast (SINGULAIR) 10 mg tablet TAKE 1 TABLET BY MOUTH DAILY AT BEDTIME. FOR NASAL ALLERGIES. hydrALAZINE (APRESOLINE) 50 mg tablet Take 1 tablet by mouth twice daily. metFORMIN (GLUCOPHAGE) 850 mg tablet Take 1 tablet by mouth twice daily with meals. isosorbide mononitrate ER (IMDUR) 30 mg 24 hr tablet Take 1 tablet by mouth once daily. pantoprazole DR (PROTONIX) 40 mg tablet TAKE 1 TABLET BY MOUTH DAILY BEFORE BREAKFAST. TAKE ON EMPTY STOMACH, 1/2 HR BEFORE MEAL. ammonium lactate (LAC-HYDRIN) 12 % cream Apply to affected area as needed. [employer] scooter Dx: Z74.90, R26.89, I73.9, J44.1, M54.5, G89.29 Fcqaux-Qsxzubu-Gaa Palm-Min 17 (PROSTATE THERAPY) cap Take 2 Each by mouth once daily. SUPER BETA PROSTATE. coenzyme Q10 (COENZYME Q-10) 100 mg cap capsule 100 mg. ascorbic acid, vitamin C, (VITAMIN C) 500 mg tablet Take 500 mg by mouth once daily. COQ10, LIPOSOMAL UBIQUINOL, ORAL Take 1 tablet by mouth once daily. hydroCHLOROthiazide (HYDRODIURIL, ESIDRIX) 25 mg tablet Take 25 mg by mouth once daily. blood sugar diagnostic (BLOOD GLUCOSE TEST) test strip Test blood sugar(s) 2 times daily. Dx: Type 2 DM - Uncontrolled E11.65 Insulin: No cholecalciferol, vitamin D3, (VITAMIN D3 ORAL) Take 4,000 Units by mouth once daily. carvedilol (COREG) 12.5 mg tablet Take 1 tablet by mouth twice daily. ipratropium bromide (ATROVENT) 42 mcg (0.06 %) nasal spray Use 2 Sprays in the nose four times daily. rOPINIRole (REQUIP) 0.5 mg tablet Take 0.5 mg by mouth three times daily. loratadine 10 mg cap Take by mouth. triamcinolone acetonide (NASACORT) 55 mcg nasal inhaler Use 2 Sprays in the nose once daily. atorvastatin (LIPITOR) 40 mg tablet Take 1 tablet by mouth every other day. At bedtime for cholesterol. nitroglycerin sublingual (NITROSTAT) 0.4 mg SL tablet Dissolve 1 tablet under the tongue every 5 minutes as needed for Chest Pain. Aspirin 81 mg ORAL Tab Take 1 tablet by mouth once daily. Take with food. 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 Hilliard. Coronary atherosclerosis of unspecified type of vessel, inupiat or graft 06/13/2005 Diverticulitis of colon (without mention of hemorrhage)(562.11) 06/12/2005 Diverticulosis of colon 08/25/2010 Heart attack (HCC) Hypertrophy of prostate without urinary obstruction and other lower urinary tract symptoms (LUTS) 06/12/2005 Memory disturbance 07/24/2010 Mitral valve disorders(424.0) 06/12/2005 Other and unspecified hyperlipidemia 06/13/2005 Other specified disorders of arteries and arterioles (HCC) 06/12/2005 Peripheral vascular disease, unspecified (HCC) 06/12/2005 Personal history of colonic polyps 06/13/2005 Tubular adenoma. 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 S/P femoral-popliteal bypass surgery 08/07/2018 Snoring Tobacco use disorder 06/12/2005 Type II or unspecified type diabetes mellitus without mention of complication, not stated as uncontrolled 01/24/2011 Unspecified essential hypertension 06/12/2005 Venous insufficiency (chronic) (peripheral) 05/11/2015 Social History Tobacco Use Smoking status: Former Smoker Packs/day: 0.50 Years: 50.00 Pack years: 25.00 Types: Cigarettes, Cigars Quit date: 02/05/2008 Years since quittin.1 Smokeless tobacco: Never Used Substance Use Topics Alcohol use: Yes Comment: Rare Drug use: No ASSESSMENT/PLAN: 1. Chronic idiopathic constipation - ICD9: 564.00, ICD10: K59.04 (primary diagnosis) - CONSULT TO GASTROENTEROLOGY - CONSULT TO GENERAL SURGERY 2. Altered bowel habits - ICD9: 787.99, ICD10: R19.4 - CONSULT TO GASTROENTEROLOGY - CONSULT TO GENERAL SURGERY 3. Nausea and vomiting, unspecified vomiting type - ICD9: 787.01, ICD10: R11.2 Notes altered bowel habits, now with small caliber BMs 4-5 times per day has to strain for this. Present for 3 to 4 months. Concerned about obstruction. Notes nausea and vomiting occasionally present when he is constipated and unable to pass stool in usual quantity. Note colonoscopy 2016 at [facility], polyps noted. 5-year follow-up recommended. Recommend he schedule this at his earliest convenience. Advance his diet slowly, start with easy to digest foods such as mashed potatoes, soups, smoothies or similar. Drink about 64 ounces of fluid daily OK to take miralax once or twice daily as needed. OK to try metamucil gummies. Schedule appointment with general surgery to discuss colonoscopy. Dominique Reese APRN.CNS Medical Decision Making: Problems: Moderate: New problem with uncertain prognosis Data: Unique test(s) ordered: 1 Risk: Moderate: Drug management Medical Decision Making Level: 4 - Moderate documented in this encounter [facility] 03-28-2022 History of Presen t illness Narrative This note was created using [employer]. Subjective Woody Hernandes is a 86 year old male. He had TURP 03/07/22. He was admitted 03/09-03/22/22 for debility. He was back home now and going to [facility] for outpatient PT. His only complaints were dysuria and constipation. He sees Dr. Moore next week. Review of Systems Constitutional: Negative for appetite change and fever. HENT: Negative. Respiratory: Negative. Cardiovascular: Negative. Gastrointestinal: Positive for constipation. Negative for abdominal pain, nausea, rectal pain and vomiting. Genitourinary: Positive for dysuria. Musculoskeletal: Positive for gait problem. ACTIVE PROBLEM LIST Essential Hypertension Bph Associated With Nocturia Mitral Valve Disorder Coronary Atherosclerosis Hyperlipidemia Chronic Obstructive Pulmonary Disease With Acute Exacerbation (Hcc) Chronic Rhinitis Vitamin D Deficiency Anemia Venous Insufficiency (Chronic) (Peripheral) Well Controlled Type 2 Diabetes Mellitus With Neurological Manifestations ([facility]) Chronic Midline Low Back Pain Without Sciatica Peripheral Arterial Disease ([facility]) Tobacco Use Disorder S/P Femoral-Popliteal Bypass Surgery Obesity, Class I, Bmi 30-34.9 Ckd (Chronic Kidney Disease) Stage 3, Gfr 30-59 Ml/Min ([facility]) Current Outpatient Medications Medication Sig metFORMIN (GLUCOPHAGE) 850 mg tablet Take 1 tablet by mouth twice daily with meals. isosorbide mononitrate ER (IMDUR) 30 mg 24 hr tablet Take 1 tablet by mouth once daily. pantoprazole DR (PROTONIX) 40 mg tablet TAKE 1 TABLET BY MOUTH DAILY BEFORE BREAKFAST. TAKE ON EMPTY STOMACH, 1/2 HR BEFORE MEAL. hydrALAZINE (APRESOLINE) 25 mg tablet Take 1 tablet by mouth three times daily. ammonium lactate (LAC-HYDRIN) 12 % cream Apply to affected area as needed. [employer] Power scooter Dx: Z74.90, R26.89, I73.9, J44.1, M54.5, G89.29 Kkzwna-Tlrdiut-Ybw Palm-Min 17 (PROSTATE THERAPY) cap Take 2 Each by mouth once daily. SUPER BETA PROSTATE. coenzyme Q10 (COENZYME Q-10) 100 mg cap capsule 100 mg. montelukast (SINGULAIR) 10 mg tablet TAKE 1 TABLET BY MOUTH DAILY AT BEDTIME. FOR NASAL ALLERGIES. ascorbic acid, vitamin C, (VITAMIN C) 500 mg tablet Take 500 mg by mouth once daily. COQ10, LIPOSOMAL UBIQUINOL, ORAL Take 1 tablet by mouth once daily. hydroCHLOROthiazide (HYDRODIURIL, ESIDRIX) 25 mg tablet Take 25 mg by mouth once daily. blood sugar diagnostic (BLOOD GLUCOSE TEST) test strip Test blood sugar(s) 2 times daily. Dx: Type 2 DM - Uncontrolled E11.65 Insulin: No cholecalciferol, vitamin D3, (VITAMIN D3 ORAL) Take 4,000 Units by mouth once daily. carvedilol (COREG) 12.5 mg tablet Take 1 tablet by mouth twice daily. ipratropium bromide (ATROVENT) 42 mcg (0.06 %) nasal spray Use 2 Sprays in the nose four times daily. rOPINIRole (REQUIP) 0.5 mg tablet Take 0.5 mg by mouth three times daily. loratadine 10 mg cap Take by mouth. triamcinolone acetonide (NASACORT) 55 mcg nasal inhaler Use 2 Sprays in the nose once daily. atorvastatin (LIPITOR) 40 mg tablet Take 1 tablet by mouth every other day. At bedtime for cholesterol. nitroglycerin sublingual (NITROSTAT) 0.4 mg SL tablet Dissolve 1 tablet under the tongue every 5 minutes as needed for Chest Pain. Aspirin 81 mg ORAL Tab Take 1 tablet by mouth once daily. Take with food. NIFEDIPINE ER 90 MG TAB take one tablet daily No current facility-administered medications for this visit. Objective BP 136/58 (BP Site: Left Arm, BP Position: Sitting, BP Cuff Size: Large Adult) Pulse 60 Temp 36.1 C (97 F) (Temporal Artery) Resp 18 Wt 88.2 kg (194 lb 6.4 oz) BMI 30.45 kg/m Physical Exam Constitutional: Appearance: He is not ill-appearing. Cardiovascular: Rate and Rhythm: Normal rate and regular rhythm. Heart sounds: No murmur heard. No gallop. Pulmonary: Breath sounds: Normal breath sounds. Abdominal: General: There is no distension. Palpations: Abdomen is soft. Tenderness: There is no abdominal tenderness. Musculoskeletal: Right lower leg: No edema. Left lower leg: No edema. Neurological: General: No focal deficit present. Mental Status: He is alert. Gait: Gait abnormal. Comments: Ambulatory with walker. Discharge summary from TCU reviewed. BP rechecked left arm 140/58 Assessment and Plan 1. S/P TURP (status post transurethral resection of prostate) - ICD9: V45.89, ICD10: Z90.79 (primary diagnosis) Continue recovery. 2. Chronic idiopathic constipation - ICD9: 564.00, ICD10: K59.04 Try docusate. If not we can consider lubiprostone. Discussed medication dosage, usage, goals of therapy, and side effects. - DOCUSATE SODIUM 100 MG CAPSULE 3. Well controlled type 2 diabetes mellitus with neurological manifestations (HCC) - ICD9: 250.60, ICD10: E11.49 Controlled. - Continue current medications - BASIC METABOLIC PNL - LIPID PANEL BASIC - HGB A1C 4. Allergic rhinitis, unspecified seasonality, unspecified trigger - ICD9: 477.9, ICD10: J30.9 Controlled. - MONTELUKAST 10 MG TABLET 5. Essential hypertension - ICD9: 401.9, ICD10: I10 - suboptimal control - Continue current medication(s) - Goal of BP <130/80 - HYDRALAZINE 50 MG TABLET. Take one(1) tablet two(2) times daily. Emeka Horn MD documented in this encounter [facility] 02-07-2022 History of Presen t illness Narrative CC: Patient presents with: F/U 6 months HPI Woody Hernandes is a 86 year old male who presents today for above. Patient reports recurrent UTI's, was referred to urologist Dr. Moore. He will have cystoscopy next week, currently on antibiotics. Checking fasting blood sugars daily, ranging from 160's to 200 but does not often go that high. He recently had epidural steroid injection which does cause elevated blood sugars for a couple weeks after. Blood pressure at home using wrist cuff usually in the 120's/60's. Taking all medications as prescribed without side effects. He is confused about some of his medications as they are being prescribed by multiple providers. SOB and cough associated with COPD is overall stable, lithographic proofer is Dr. Rivero. Using Symbicort and albuterol nebulizer as instructed. He has chronic BLE edema which is overall stable. 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 Hilliard. Coronary atherosclerosis of unspecified type of vessel, inupiat or graft 06/13/2005 Diverticulitis of colon (without mention of hemorrhage)(562.11) 06/12/2005 Diverticulosis of colon 08/25/2010 Heart attack (HCC) Hypertrophy of prostate without urinary obstruction and other lower urinary tract symptoms (LUTS) 06/12/2005 Memory disturbance 07/24/2010 Mitral valve disorders(424.0) 06/12/2005 Other and unspecified hyperlipidemia 06/13/2005 Other specified disorders of arteries and arterioles (HCC) 06/12/2005 Peripheral vascular disease, unspecified (HCC) 06/12/2005 Personal history of colonic polyps 06/13/2005 Tubular adenoma. 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 S/P femoral-popliteal bypass surgery 08/07/2018 Snoring Tobacco use disorder 06/12/2005 Type II or unspecified type diabetes mellitus without mention of complication, not stated as uncontrolled 01/24/2011 Unspecified essential hypertension 06/12/2005 Venous insufficiency (chronic) (peripheral) 05/11/2015 PAST SURGICAL HISTORY Procedure Laterality Date APPENDECTOMY DONE W/OTHR MAJOR SURGERY 1998 With inguinal hernia repair [facility] INCL FLUOR GDNCE DX W/CELL WASHG SPX Bronchoscopy COLONOSCOPY FLX DX W/COLLJ SPEC WHEN PFRMD 01/2003 Colonoscopy COLONOSCOPY FLX DX W/COLLJ SPEC WHEN PFRMD 02/2005 Colonoscopy COLONOSCOPY FLX DX W/COLLJ SPEC WHEN PFRMD 12/05/15 Colonoscopy COLSC FLX W/RMVL OF TUMOR POLYP LESION SNARE TQ 08/25/10 Distal transverse polyp/diverticular dz CYSTOURETHROSCOPY 06/14/04 Cystoscopy DIR RPR ANEURYSM ABDOMINAL AORTA 11/11/98 Abd Aortic Aneurysm Repair INSERT INTRACORONARY STENT 1997 right MCA INTRODUCTION CATHETER AORTA 07-25-10 APLL LEFT HEART CATH,PERCUTANEOUS 01/09/2012 Cardiac cath, L heart LEFT HEART CATH,PERCUTANEOUS 03/29/2014 Cardiac cath, L heart LITHOTRIPSY XTRCORP SHOCK WAVE 06/14/04 Lithotripsy OPEN TX CLAVICULAR FRACTURE INTERNAL FIXATION 1983 right clavicle RPR 1ST INGUN HRNA AGE 7 YRS/> REDUCIBLE 05/05/99 Hernia repair, inguinal TEAEC W/WO PATCH GRAFT DEEP PROFUNDA FEMORAL Right 08/05/2018 TRANSCATH STENT ADDN VESSEL,PERCUT 02/17/2008 Transcath stent addn vessel percut. Mid and distal RCA. TRANSCATH STENT INIT VESSEL,PERCUT 02/17/2008 Transcath stent init vessel percut, Prox. RCA. ALLERGIES Felodipine, Levaquin [Levofloxacin], Pletal [Cilostazol], and Sulfa (Sulfonamide Antibiotics) MEDICATIONS metFORMIN (GLUCOPHAGE) 850 mg tablet Take 1 tablet by mouth twice daily with meals. isosorbide mononitrate ER (IMDUR) 30 mg 24 hr tablet Take 1 tablet by mouth once daily. pantoprazole DR (PROTONIX) 40 mg tablet TAKE 1 TABLET BY MOUTH DAILY BEFORE BREAKFAST. TAKE ON EMPTY STOMACH, 1/2 HR BEFORE MEAL. hydrALAZINE (APRESOLINE) 25 mg tablet Take 1 tablet by mouth three times daily. ammonium lactate (LAC-HYDRIN) 12 % cream Apply to affected area as needed. [employer] Dx: Z74.90, R26.89, I73.9, J44.1, M54.5, G89.29 Uenyyv-Cbqcgjc-Zzk Palm-Min 17 (PROSTATE THERAPY) cap Take 2 Each by mouth once daily. SUPER BETA PROSTATE. coenzyme Q10 (COENZYME Q-10) 100 mg cap capsule 100 mg. montelukast (SINGULAIR) 10 mg tablet TAKE 1 TABLET BY MOUTH DAILY AT BEDTIME. FOR NASAL ALLERGIES. ascorbic acid, vitamin C, (VITAMIN C) 500 mg tablet Take 500 mg by mouth once daily. COQ10, LIPOSOMAL UBIQUINOL, ORAL Take 1 tablet by mouth once daily. hydroCHLOROthiazide (HYDRODIURIL, ESIDRIX) 25 mg tablet Take 25 mg by mouth once daily. blood sugar diagnostic (BLOOD GLUCOSE TEST) test strip Test blood sugar(s) 2 times daily. Dx: Type 2 DM - Uncontrolled E11.65 Insulin: No cholecalciferol, vitamin D3, (VITAMIN D3 ORAL) Take 4,000 Units by mouth once daily. carvedilol (COREG) 12.5 mg tablet Take 1 tablet by mouth twice daily. ipratropium bromide (ATROVENT) 42 mcg (0.06 %) nasal spray Use 2 Sprays in the nose four times daily. rOPINIRole (REQUIP) 0.5 mg tablet Take 0.5 mg by mouth three times daily. loratadine 10 mg cap Take by mouth. triamcinolone acetonide (NASACORT) 55 mcg nasal inhaler Use 2 Sprays in the nose once daily. atorvastatin (LIPITOR) 40 mg tablet Take 1 tablet by mouth every other day. At bedtime for cholesterol. nitroglycerin sublingual (NITROSTAT) 0.4 mg SL tablet Dissolve 1 tablet under the tongue every 5 minutes as needed for Chest Pain. Aspirin 81 mg ORAL Tab Take 1 tablet by mouth once daily. Take with food. NIFEDIPINE ER 90 MG TAB take one tablet daily FAMILY HISTORY Problem Relation Age of Onset Diabetes Father alive at 93 Coronary Artery Disease Father Stroke Father Hypertension Father Prostate Cancer Father Cataract Father Alzheimer's Disease Mother age 92 Arthritis Mother hip replacement Hypertension Brother Heart Brother valve replacement Lipids Brother Prostate Cancer Son 57 seed implants Social History Tobacco Use Smoking status: Former Smoker Packs/day: 0.50 Years: 50.00 Pack years: 25.00 Types: Cigarettes, Cigars Quit date: 02/05/2008 Years since quittin.0 Smokeless tobacco: Never Used Substance Use Topics Alcohol use: Yes Comment: Rare Drug use: No PHYSICAL EXAM BP 158/74 Pulse 60 Resp 22 Wt 93.4 kg (206 lb) SpO2 96% BMI 32.26 kg/m General Appearance: well appearing, in no acute distress, alert Lungs: Lungs clear to auscultation. No wheezing, rhonchi, rales. Heart: RRR without murmur, gallop, or rubs. No ectopy Ext: trace edema BLE 1+ distal pulses Health maintenance reviewed with patient: ADVANCE DIRECTIVE DISCUSSION Never done DTAP,TDAP,TD(1 - Tdap) due on 08/16/2022 LDL CHOLESTEROL due on 03/27/2022 DIABETIC FOOT EXAM due on 07/07/2022 HBA1C due on 07/26/2022 DILATED RETINAL EXAM due on 12/29/2022 URINE ALBUMIN:CREATININE RATIO due on 01/24/2023 SPIROMETRY Completed INFLUENZA Completed PNEUMOVAX AGE 65 AND OVER WITH 5YR LOOKBACK Completed SHINGRIX VACCINE Completed COVID-19 VACCINE Completed MENINGOCOCCAL CONJUGATE Aged Out DATA REVIEWED: Most recent labs ASSESSMENT/PLAN: 1. Well controlled type 2 diabetes mellitus with neurological manifestations (HCC) - ICD9: 250.60, ICD10: E11.49 (primary diagnosis) Controlled. - Continue current medications - HGB A1C 2. Stage 3a chronic kidney disease (HCC) - ICD9: 585.3, ICD10: N18.31 Elevated urine albumin/creatinine ratio. Discussed with patient and , recommend referral to nephrology. They prefer to wait until urological issues are addressed first, will call when ready to schedule - CONSULT TO NEPHROLOGY 3. Essential hypertension - ICD9: 401.9, ICD10: I10 - good control - Continue current medication(s) - Recommended regular aerobic exercise. - Recommend home blood pressure monitoring, to bring results in on next visit - Goal of BP <130/80 4. Anemia, unspecified type - ICD9: 285.9, ICD10: D64.9 Stable 5. Obesity, Class I, BMI 30-34.9 - ICD9: 278.00, ICD10: E66.9 Stable 6. Peripheral arterial disease (HCC) - ICD9: 443.9, ICD10: I73.9 Stable 7. BPH associated with nocturia - ICD9: 600.01, 788.43, ICD10: N40.1, R35.1 Follow-up with urology Prescription instructions reviewed with patient as applicable. Potential red flag symptoms discussed with the patient. Reviewed appropriate action plan to take if red flag symptoms occur. Patient agreeable to treatment plan. Samantha Aguirre APRN.CNP documented in this encounter [facility] 02-07-2022 Nurse Note 02/07/2022: Home BP Cuff Validated. Home BP: 157/101 HR 89 Office BP: 158/74 HR 60 documented in this encounter [facility] 02-02-2022 History of Presen t illness Narrative Last saw Samantha Aguirre: 08/16/21 Subjective: Patient presents to clinic c/o painful toenails. They state that the nails are especially painful with shoe gear and pressure. Patient states that nails 1-5 b/l are painful. Patient admits to being diabetic. No other pedal complaints at this time. Patient states no change in medications or medical history since last visit. Objective: Patient presents to clinic ambulating in [facility] Vasc: DP and PT pulses are nonpalapble bilateral. CFT is less than 5 seconds bilateral. Skin temperature is warm to cool proximal to distal bilateral. There is + edema or varicosities noted. Neuro: Protective sensation is intact to the foot and toes when tested with the 5.07 SWM bilateral. Vibratory sensation is absent at the hallux IPJ bilateral. The hallux is downgoing bilateral. Derm: Nails 1-5 b/l are painful, discolored-yellow, thick, crumbly, dystrophic and with subungal debris. Skin is of normal turgor, texture and hair growth is absent bilateral. There are no hyperkeratosis, ulcerations, scars, verruca or other lesions noted. Ortho: Muscle strength is 5/5 for all pedal groups tested. Ankle joint DF is decreased with the knee extended with no pain or crepitus noted. 1st MPJ ROM is decresased bilateral. Assessment: (B35.1) Onychomycosis (primary encounter diagnosis) (M79.674) Pain in toe of right foot (M79.675) Pain in toe of left foot (E11.42) Diabetic polyneuropathy associated with type 2 diabetes mellitus (HCC) (I73.9) PAD (peripheral artery disease) ([facility]) Plan: Patient was seen and evaluated. Nails 1-5 bilateral were debrided in length and thickness. Small bleed to right 4th toe. Patient was instructed on the continued importance of diabetic foot care along with proper diet and keeping their blood sugar under control to prevent complications. Patient is to RTC in 3-4 months. Vipul Brady DPM Patient presents with: Left Foot - Established Patient, Nail Care Right Foot - Established Patient, Nail Care documented in this encounter [facility] 02-02-2022 Instructions Vipul Brady - 02/02/2022 1:47 PM EDT Diabetes Foot Care Instructions When you have diabetes, proper foot care is very important. Poor foot care may lead to amputation of a foot or leg. As a person with diabetes, you are more vulnerable to foot problems, because diabetes can damage your nerves and reduce blood flow to your feet. Here are some diabetes foot care tips to follow: Wash and Dry Your Feet Daily Use mild soaps Use warm water Pat your skin dry; do not rub. Thoroughly dry your feet. After washing, use lotion on your feet to prevent cracking. Do not put lotion between your toes. Examine Your Feet Each Day Check the tops and bottoms of your feet. Have someone else look at your feet if you cannot see them. Check for dry, cracked skin. Look for blisters, cuts, scratches, or other sores. Check for redness, increased warmth, or tenderness when touching any area of your feet. Check for ingrown toenails, corns, and calluses. If you get a blister or sore from your shoes, do not pop it. Apply a bandage and wear a different pair of shoes. Take Care of Your Toenails Cut toenails after bathing, when they are soft. Cut toenails straight across and smooth with a nail file. Avoid cutting into the corners of toes. Do not cut cuticles. If you have neuropathy (or decreased sensation in your feet) a medical assisting instructor should always cut your toenails. Be Careful When Exercising Walk and exercise in comfortable shoes. Do not exercise when you have open sores on your feet. Protect Your Feet With Shoes and Socks Never go barefoot. Always protect your feet by wearing shoes or hard-soled slippers or footwear. Avoid shoes with high heels and pointed toes. Avoid shoes that expose your toes or heels (such as open-toed shoes or sandals). These types of shoes increase your risk for injury and potential infections. Try on new footwear with the type of socks you usually wear. Do not wear new shoes for more than an hour at a time. Change your socks daily. Look and feel inside your shoes before putting them on to make sure there are no foreign objects or rough areas. Avoid tight socks. Wear natural-fiber socks (cotton, wool, or a cotton-wool blend). Wear special shoes if your health care provider recommends them. Wear shoes/boots that will protect your feet from various weather conditions (cold, moisture, etc.). Make sure your shoes fit properly. If you have neuropathy (nerve damage), you may not notice that your shoes are too tight. Perform the footwear test described below. Footwear Test Use this simple test to see if your shoes fit correctly: Stand on a piece of paper. (Make sure you are standing and not sitting, because your foot changes shape when you stand.) Trace the outline of your foot. Trace the outline of your shoe. Compare the tracings: Is the shoe too narrow? Is your foot crammed into the shoe? The shoe should be at least 1/2 inch longer than your longest toe and as wide as your foot. Proper Shoe Choices The following types of shoes are best for people with diabetes Closed toes and heels Leather uppers without a seam inside At least 1/2 inch extra space at the end of your longest toe Inside of shoe should be soft with no rough areas Outer sole should be made of stiff material Shoes should be at least as wide as your feet Tips for Foot Care in Diabetes Don't wait to treat a minor foot problem if you have diabetes. Follow your health care provider's guidelines and first aid guidelines. Report foot injuries and infections to your health care provider immediately. Check water temperature with your elbow, not your foot. Do not use a heating pad on your feet. Do not cross your legs. Do not self-treat your corns, calluses, or other foot problems. Go to your health care provider or medical assisting instructor to treat these conditions. documented in this encounter [facility] 01-09-2022 History of Presen t illness Narrative This office note has been dictated. Eliza Mallory DO documented in this encounter [facility] 12-28-2021 Miscellaneous Notes Perfect! Thank you! Spoke with patient and rescheduled AAA and scheduled PVR on 01/08/22. Cassie Dueñas This patient needs additional testing, PVR- order in placed, scheduled prior to appointment. Also the AAA testing is scheduled after the visit and that does not work. Please schedule both tests prior to the appointment. Thank you! documented in this encounter [facility] documented as of this encounter (statuses as of 12/28/2021) [facility] History of Past illness Narrative* Problem Noted Date Resolved Date PAD (peripheral artery disease) 06/11/2018 10/29/2018 Overview: Added automatically from request for surgery [id number] Last Assessment & Plan: S/P Surgery. Continue on Asa and plavix. Further care as per primary service. Pain in limb 05/11/2015 10/29/2018 Elevated PSA 10/25/2014 10/16/2017 Diabetes mellitus type 2, controlled, without co mplications 01/24/2011 10/16/2017 Diverticulosis of colon 08/25/2010 08/04/20 12 Colon polyp 08/25/2010 10/16/2017 Memory disturbance 07/24/2010 08/04/2012 Elevated prostate specific antigen (PSA) 009 08/04/2012 Shortness of breath 05/10/2009 07/19/2009 Pulmonary Nodules 08/22/2007 08/04/2012 Overview: Possible asbestosis, pleural plaques. Personal history of colonic polyps 06/13/2005 08/04/2012 Overview: Tubular adenoma. 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 History of Past illness Narrative* Problem Noted Date Resolved Date PAD (peripheral artery disease) 06/11/2018 10/29/2018 Overview: Added automatically from request for surgery [id number] Last Assessment & Plan: S/P Surgery. Continue on Asa and plavix. Further care as per primary service. Pain in limb 05/11/2015 10/29/2018 Elevated PSA 10/25/2014 10/16/2017 Diabetes mellitus type 2, controlled, without co mplications 01/24/2011 10/16/2017 Diverticulosis of colon 08/25/2010 08/04/20 12 Colon polyp 08/25/2010 10/16/2017 Memory disturbance 07/24/2010 08/04/2012 Elevated prostate specific antigen (PSA) 009 08/04/2012 Shortness of breath 05/10/2009 07/19/2009 Pulmonary Nodules 08/22/2007 08/04/2012 Overview: Possible asbestosis, pleural plaques. Personal history of colonic polyps 06/13/2005 08/04/2012 Overview: Tubular adenoma. 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 History of Past illness Narrative* Problem Noted Date Resolved Date PAD (peripheral artery disease) 06/11/2018 10/29/2018 Overview: Added automatically from request for surgery [id number] Last Assessment & Plan: S/P Surgery. Continue on Asa and plavix. Further care as per primary service. Pain in limb 05/11/2015 10/29/2018 Elevated PSA 10/25/2014 10/16/2017 Diabetes mellitus type 2, controlled, without co mplications 01/24/2011 10/16/2017 Diverticulosis of colon 08/25/2010 08/04/20 12 Colon polyp 08/25/2010 10/16/2017 Memory disturbance 07/24/2010 08/04/2012 Elevated prostate specific antigen (PSA) 009 08/04/2012 Shortness of breath 05/10/2009 07/19/2009 Pulmonary Nodules 08/22/2007 08/04/2012 Overview: Possible asbestosis, pleural plaques. Personal history of colonic polyps 06/13/2005 08/04/2012 Overview: Tubular adenoma. 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 History of Past illness Narrative* Problem Noted Date Resolved Date PAD (peripheral artery disease) 06/11/2018 10/29/2018 Overview: Added automatically from request for surgery [id number] Last Assessment & Plan: S/P Surgery. Continue on Asa and plavix. Further care as per primary service. Pain in limb 05/11/2015 10/29/2018 Elevated PSA 10/25/2014 10/16/2017 Diabetes mellitus type 2, controlled, without co mplications 01/24/2011 10/16/2017 Diverticulosis of colon 08/25/2010 08/04/20 12 Colon polyp 08/25/2010 10/16/2017 Memory disturbance 07/24/2010 08/04/2012 Elevated prostate specific antigen (PSA) 009 08/04/2012 Shortness of breath 05/10/2009 07/19/2009 Pulmonary Nodules 08/22/2007 08/04/2012 Overview: Possible asbestosis, pleural plaques. Personal history of colonic polyps 06/13/2005 08/04/2012 Overview: Tubular adenoma. 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 History of Past illness Narrative* Problem Noted Date Resolved Date PAD (peripheral artery disease) 06/11/2018 10/29/2018 Overview: Added automatically from request for surgery [id number] Last Assessment & Plan: S/P Surgery. Continue on Asa and plavix. Further care as per primary service. Pain in limb 05/11/2015 10/29/2018 Elevated PSA 10/25/2014 10/16/2017 Diabetes mellitus type 2, controlled, without co mplications 01/24/2011 10/16/2017 Diverticulosis of colon 08/25/2010 08/04/20 12 Colon polyp 08/25/2010 10/16/2017 Memory disturbance 07/24/2010 08/04/2012 Elevated prostate specific antigen (PSA) 009 08/04/2012 Shortness of breath 05/10/2009 07/19/2009 Pulmonary Nodules 08/22/2007 08/04/2012 Overview: Possible asbestosis, pleural plaques. Personal history of colonic polyps 06/13/2005 08/04/2012 Overview: Tubular adenoma. 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 History of Past illness Narrative* Problem Noted Date Resolved Date PAD (peripheral artery disease) 06/11/2018 10/29/2018 Overview: Added automatically from request for surgery [id number] Last Assessment & Plan: S/P Surgery. Continue on Asa and plavix. Further care as per primary service. Pain in limb 05/11/2015 10/29/2018 Elevated PSA 10/25/2014 10/16/2017 Diabetes mellitus type 2, controlled, without co mplications 01/24/2011 10/16/2017 Diverticulosis of colon 08/25/2010 08/04/20 12 Colon polyp 08/25/2010 10/16/2017 Memory disturbance 07/24/2010 08/04/2012 Elevated prostate specific antigen (PSA) 009 08/04/2012 Shortness of breath 05/10/2009 07/19/2009 Pulmonary Nodules 08/22/2007 08/04/2012 Overview: Possible asbestosis, pleural plaques. Personal history of colonic polyps 06/13/2005 08/04/2012 Overview: Tubular adenoma. 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 History of Past illness Narrative* Problem Noted Date Resolved Date PAD (peripheral artery disease) 06/11/2018 10/29/2018 Overview: Added automatically from request for surgery [id number] Last Assessment & Plan: S/P Surgery. Continue on Asa and plavix. Further care as per primary service. Pain in limb 05/11/2015 10/29/2018 Elevated PSA 10/25/2014 10/16/2017 Diabetes mellitus type 2, controlled, without co mplications 01/24/2011 10/16/2017 Diverticulosis of colon 08/25/2010 08/04/20 12 Colon polyp 08/25/2010 10/16/2017 Memory disturbance 07/24/2010 08/04/2012 Elevated prostate specific antigen (PSA) 009 08/04/2012 Shortness of breath 05/10/2009 07/19/2009 Pulmonary Nodules 08/22/2007 08/04/2012 Overview: Possible asbestosis, pleural plaques. Personal history of colonic polyps 06/13/2005 08/04/2012 Overview: Tubular adenoma. 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 History of Past illness Narrative* Problem Noted Date Resolved Date PAD (peripheral artery disease) 06/11/2018 10/29/2018 Overview: Added automatically from request for surgery [id number] Last Assessment & Plan: S/P Surgery. Continue on Asa and plavix. Further care as per primary service. Pain in limb 05/11/2015 10/29/2018 Elevated PSA 10/25/2014 10/16/2017 Diabetes mellitus type 2, controlled, without co mplications 01/24/2011 10/16/2017 Diverticulosis of colon 08/25/2010 08/04/20 12 Colon polyp 08/25/2010 10/16/2017 Memory disturbance 07/24/2010 08/04/2012 Elevated prostate specific antigen (PSA) 009 08/04/2012 Shortness of breath 05/10/2009 07/19/2009 Pulmonary Nodules 08/22/2007 08/04/2012 Overview: Possible asbestosis, pleural plaques. Personal history of colonic polyps 06/13/2005 08/04/2012 Overview: Tubular adenoma. 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 History of Past illness Narrative* Problem Noted Date Resolved Date PAD (peripheral artery disease) 06/11/2018 10/29/2018 Overview: Added automatically from request for surgery [id number] Last Assessment & Plan: S/P Surgery. Continue on Asa and plavix. Further care as per primary service. Pain in limb 05/11/2015 10/29/2018 Elevated PSA 10/25/2014 10/16/2017 Diabetes mellitus type 2, controlled, without co mplications 01/24/2011 10/16/2017 Diverticulosis of colon 08/25/2010 08/04/20 12 Colon polyp 08/25/2010 10/16/2017 Memory disturbance 07/24/2010 08/04/2012 Elevated prostate specific antigen (PSA) 009 08/04/2012 Shortness of breath 05/10/2009 07/19/2009 Pulmonary Nodules 08/22/2007 08/04/2012 Overview: Possible asbestosis, pleural plaques. Personal history of colonic polyps 06/13/2005 08/04/2012 Overview: Tubular adenoma. 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 History of Past illness Narrative* Problem Noted Date Resolved Date PAD (peripheral artery disease) 06/11/2018 10/29/2018 Overview: Added automatically from request for surgery [id number] Last Assessment & Plan: S/P Surgery. Continue on Asa and plavix. Further care as per primary service. Pain in limb 05/11/2015 10/29/2018 Elevated PSA 10/25/2014 10/16/2017 Diabetes mellitus type 2, controlled, without co mplications 01/24/2011 10/16/2017 Diverticulosis of colon 08/25/2010 08/04/20 12 Colon polyp 08/25/2010 10/16/2017 Memory disturbance 07/24/2010 08/04/2012 Elevated prostate specific antigen (PSA) 009 08/04/2012 Shortness of breath 05/10/2009 07/19/2009 Pulmonary Nodules 08/22/2007 08/04/2012 Overview: Possible asbestosis, pleural plaques. Personal history of colonic polyps 06/13/2005 08/04/2012 Overview: Tubular adenoma. 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 History of Past illness Narrative* Problem Noted Date Resolved Date PAD (peripheral artery disease) 06/11/2018 10/29/2018 Overview: Added automatically from request for surgery [id number] Last Assessment & Plan: S/P Surgery. Continue on Asa and plavix. Further care as per primary service. Pain in limb 05/11/2015 10/29/2018 Elevated PSA 10/25/2014 10/16/2017 Diabetes mellitus type 2, controlled, without co mplications 01/24/2011 10/16/2017 Diverticulosis of colon 08/25/2010 08/04/20 12 Colon polyp 08/25/2010 10/16/2017 Memory disturbance 07/24/2010 08/04/2012 Elevated prostate specific antigen (PSA) 009 08/04/2012 Shortness of breath 05/10/2009 07/19/2009 Pulmonary Nodules 08/22/2007 08/04/2012 Overview: Possible asbestosis, pleural plaques. Personal history of colonic polyps 06/13/2005 08/04/2012 Overview: Tubular adenoma. 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 History of Past illness Narrative* Problem Noted Date Resolved Date PAD (peripheral artery disease) 06/11/2018 10/29/2018 Overview: Added automatically from request for surgery [id number] Last Assessment & Plan: S/P Surgery. Continue on Asa and plavix. Further care as per primary service. Pain in limb 05/11/2015 10/29/2018 Elevated PSA 10/25/2014 10/16/2017 Diabetes mellitus type 2, controlled, without co mplications 01/24/2011 10/16/2017 Diverticulosis of colon 08/25/2010 08/04/20 12 Colon polyp 08/25/2010 10/16/2017 Memory disturbance 07/24/2010 08/04/2012 Elevated prostate specific antigen (PSA) 009 08/04/2012 Shortness of breath 05/10/2009 07/19/2009 Pulmonary Nodules 08/22/2007 08/04/2012 Overview: Possible asbestosis, pleural plaques. Personal history of colonic polyps 06/13/2005 08/04/2012 Overview: Tubular adenoma. 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 of Past illness Narrative* Problem Noted Date Resolved Date PAD (peripheral artery disease) 06/11/2018 10/29/2018 Overview: Added automatically from request for surgery [id number] Last Assessment & Plan: S/P Surgery. Continue on Asa and plavix. Further care as per primary service. Pain in limb 05/11/2015 10/29/2018 Elevated PSA 10/25/2014 10/16/2017 Diabetes mellitus type 2, controlled, without co mplications 01/24/2011 10/16/2017 Diverticulosis of colon 08/25/2010 08/04/20 12 Colon polyp 08/25/2010 10/16/2017 Memory disturbance 07/24/2010 08/04/2012 Elevated prostate specific antigen (PSA) 009 08/04/2012 Shortness of breath 05/10/2009 07/19/2009 Pulmonary Nodules 08/22/2007 08/04/2012 Overview: Possible asbestosis, pleural plaques. Personal history of colonic polyps 06/13/2005 08/04/2012 Overview: Tubular adenoma. 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 of Past illness Narrative* Problem Noted Date Resolved Date PAD (peripheral artery disease) 06/11/2018 10/29/2018 Overview: Added automatically from request for surgery [id number] Last Assessment & Plan: S/P Surgery. Continue on Asa and plavix. Further care as per primary service. Pain in limb 05/11/2015 10/29/2018 Elevated PSA 10/25/2014 10/16/2017 Diabetes mellitus type 2, controlled, without co mplications 01/24/2011 10/16/2017 Diverticulosis of colon 08/25/2010 08/04/20 12 Colon polyp 08/25/2010 10/16/2017 Memory disturbance 07/24/2010 08/04/2012 Elevated prostate specific antigen (PSA) 009 08/04/2012 Shortness of breath 05/10/2009 07/19/2009 Pulmonary Nodules 08/22/2007 08/04/2012 Overview: Possible asbestosis, pleural plaques. Personal history of colonic polyps 06/13/2005 08/04/2012 Overview: Tubular adenoma. 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09[facility]2018 History of Past illness Narrative* Problem Noted Date Resolved Date PAD (peripheral artery disease) 06/11/2018 10/29/2018 Overview: Added automatically from request for surgery [id number] Last Assessment & Plan: S/P Surgery. Continue on Asa and plavix. Further care as per primary service. Pain in limb 05/11/2015 10/29/2018 Elevated PSA 10/25/2014 10/16/2017 Diabetes mellitus type 2, controlled, without co mplications 01/24/2011 10/16/2017 Diverticulosis of colon 08/25/2010 08/04/20 12 Colon polyp 08/25/2010 10/16/2017 Memory disturbance 07/24/2010 08/04/2012 Elevated prostate specific antigen (PSA) 009 08/04/2012 Shortness of breath 05/10/2009 07/19/2009 Pulmonary Nodules 08/22/2007 08/04/2012 Overview: Possible asbestosis, pleural plaques. Personal history of colonic polyps 06/13/2005 08/04/2012 Overview: Tubular adenoma. 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 History of Past illness Narrative* Problem Noted Date Resolved Date PAD (peripheral artery disease) 06/11/2018 10/29/2018 Overview: Added automatically from request for surgery [id number] Last Assessment & Plan: S/P Surgery. Continue on Asa and plavix. Further care as per primary service. Pain in limb 05/11/2015 10/29/2018 Elevated PSA 10/25/2014 10/16/2017 Diabetes mellitus type 2, controlled, without co mplications 01/24/2011 10/16/2017 Diverticulosis of colon 08/25/2010 08/04/20 12 Colon polyp 08/25/2010 10/16/2017 Memory disturbance 07/24/2010 08/04/2012 Elevated prostate specific antigen (PSA) 009 08/04/2012 Shortness of breath 05/10/2009 07/19/2009 Pulmonary Nodules 08/22/2007 08/04/2012 Overview: Possible asbestosis, pleural plaques. Personal history of colonic polyps 06/13/2005 08/04/2012 Overview: Tubular adenoma. 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 History of Past illness Narrative* Problem Noted Date Resolved Date PAD (peripheral artery disease) 06/11/2018 10/29/2018 Overview: Added automatically from request for surgery [id number] Last Assessment & Plan: S/P Surgery. Continue on Asa and plavix. Further care as per primary service. Pain in limb 05/11/2015 10/29/2018 Elevated PSA 10/25/2014 10/16/2017 Diabetes mellitus type 2, controlled, without co mplications 01/24/2011 10/16/2017 Diverticulosis of colon 08/25/2010 08/04/20 12 Colon polyp 08/25/2010 10/16/2017 Memory disturbance 07/24/2010 08/04/2012 Elevated prostate specific antigen (PSA) 009 08/04/2012 Shortness of breath 05/10/2009 07/19/2009 Pulmonary Nodules 08/22/2007 08/04/2012 Overview: Possible asbestosis, pleural plaques. Personal history of colonic polyps 06/13/2005 08/04/2012 Overview: Tubular adenoma. 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 History of Past illness Narrative* Problem Noted Date Diagnosed Date Resolved Date PAD (peripheral artery disease) 06/11/2018 10/29/2018 Overview: Added automatically from request for surgery [id number] Last Assessment & Plan: S/P Surgery. Continue on Asa and plavix. Further care as per primary service. Pain in limb 05/11/2015 10/29/2018 Elevated PSA 10/25/2014 10/16/2017 Diabetes mellitus type 2, co ntrolled, without complications 01/24/2011 10/16/2017 Diverticulosis of colon 08/25/201007/08 Colon polyp 08/25/2010 10/16/2017 Memory disturbance 07/24/2010 2 Elevated prostate specific antigen (PSA) 07/20/2009 08/04/2012 Shortness of breath 05/10/2009 07/19/20 09 Pulmonary Nodules 08/22/2007 08/04/2012 Overview: Possible asbestosis, pleural plaques. Personal history of colonic polyps 06/13/2005 08/04/2012 Overview: Tubular adenoma. 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 History of Past illness Narrative* Problem Noted Date Diagnosed Date Resolved Date PAD (peripheral artery disease) 06/11/2018 10/29/2018 Overview: Added automatically from request for surgery [id number] Last Assessment & Plan: S/P Surgery. Continue on Asa and plavix. Further care as per primary service. Pain in limb 05/11/2015 10/29/2018 Elevated PSA 10/25/2014 10/16/2017 Diabetes mellitus type 2, co ntrolled, without complications 01/24/2011 10/16/2017 Diverticulosis of colon 08/25/201007/08 Colon polyp 08/25/2010 10/16/2017 Memory disturbance 07/24/2010 2 Elevated prostate specific antigen (PSA) 07/20/2009 08/04/2012 Shortness of breath 05/10/2009 07/19/20 09 Pulmonary Nodules 08/22/2007 08/04/2012 Overview: Possible asbestosis, pleural plaques. Personal history of colonic polyps 06/13/2005 08/04/2012 Overview: Tubular adenoma. 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 History of Past illness Narrative* Problem Noted Date Diagnosed Date Resolved Date PAD (peripheral artery disease) 06/11/2018 10/29/2018 Overview: Added automatically from request for surgery [id number] Last Assessment & Plan: S/P Surgery. Continue on Asa and plavix. Further care as per primary service. Pain in limb 05/11/2015 10/29/2018 Elevated PSA 10/25/2014 10/16/2017 Diabetes mellitus type 2, co ntrolled, without complications 01/24/2011 10/16/2017 Diverticulosis of colon 08/25/201007/08 Colon polyp 08/25/2010 10/16/2017 Memory disturbance 07/24/2010 2 Elevated prostate specific antigen (PSA) 07/20/2009 08/04/2012 Shortness of breath 05/10/2009 07/19/20 09 Pulmonary Nodules 08/22/2007 08/04/2012 Overview: Possible asbestosis, pleural plaques. Personal history of colonic polyps 06/13/2005 08/04/2012 Overview: Tubular adenoma. 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 History of Past illness Narrative* Problem Noted Date Diagnosed Date Resolved Date PAD (peripheral artery disease) 06/11/2018 10/29/2018 Overview: Added automatically from request for surgery [id number] Last Assessment & Plan: S/P Surgery. Continue on Asa and plavix. Further care as per primary service. Pain in limb 05/11/2015 10/29/2018 Elevated PSA 10/25/2014 10/16/2017 Diabetes mellitus type 2, co ntrolled, without complications 01/24/2011 10/16/2017 Diverticulosis of colon 08/25/201007/08 Colon polyp 08/25/2010 10/16/2017 Memory disturbance 07/24/2010 2 Elevated prostate specific antigen (PSA) 07/20/2009 08/04/2012 Shortness of breath 05/10/2009 07/19/20 09 Pulmonary Nodules 08/22/2007 08/04/2012 Overview: Possible asbestosis, pleural plaques. Personal history of colonic polyps 06/13/2005 08/04/2012 Overview: Tubular adenoma. 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 History of Past illness Narrative* Problem Noted Date Diagnosed Date Resolved Date PAD (peripheral artery disease) 06/11/2018 10/29/2018 Overview: Added automatically from request for surgery [id number] Last Assessment & Plan: S/P Surgery. Continue on Asa and plavix. Further care as per primary service. Pain in limb 05/11/2015 10/29/2018 Elevated PSA 10/25/2014 10/16/2017 Diabetes mellitus type 2, co ntrolled, without complications 01/24/2011 10/16/2017 Diverticulosis of colon 08/25/201007/08 Colon polyp 08/25/2010 10/16/2017 Memory disturbance 07/24/2010 2 Elevated prostate specific antigen (PSA) 07/20/2009 08/04/2012 Shortness of breath 05/10/2009 07/19/20 09 Pulmonary Nodules 08/22/2007 08/04/2012 Overview: Possible asbestosis, pleural plaques. Personal history of colonic polyps 06/13/2005 08/04/2012 Overview: Tubular adenoma. 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2015 History of Past illness Narrative* Problem Noted Date Diagnosed Date Resolved Date Pain in limb 05/11/2015 10/29/2018 Elevated PSA 10/25/2014 10/16/2017 Diabetes mellitus type 2, co ntrolled, without complications 01/24/2011 10/16/2017 Diverticulosis of colon 08/25/201007/08 Colon polyp 08/25/2010 10/16/2017 Memory disturbance 07/24/2010 2 Elevated prostate specific antigen (PSA) 07/20/2009 08/04/2012 Shortness of breath 05/10/2009 07/19/20 09 Pulmonary Nodules 08/22/2007 08/04/2012 Overview: Possible asbestosis, pleural plaques. Personal history of colonic polyps 06/13/2005 08/04/2012 Overview: Tubular adenoma. 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08-[facility]2015 History of Past illness Narrative* Problem Noted Date Diagnosed Date Resolved Date Pain in limb 05/11/2015 10/29/2018 Elevated PSA 10/25/2014 10/16/2017 Diabetes mellitus type 2, co ntrolled, without complications 01/24/2011 10/16/2017 Diverticulosis of colon 08/25/201007/08 Colon polyp 08/25/2010 10/16/2017 Memory disturbance 07/24/2010 2 Elevated prostate specific antigen (PSA) 07/20/2009 08/04/2012 Shortness of breath 05/10/2009 07/19/20 09 Pulmonary Nodules 08/22/2007 08/04/2012 Overview: Possible asbestosis, pleural plaques. Personal history of colonic polyps 06/13/2005 08/04/2012 Overview: Tubular adenoma. 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 History of Past illness Narrative* Problem Noted Date Diagnosed Date Resolved Date Pain in limb 05/11/2015 10/29/2018 Elevated PSA 10/25/2014 10/16/2017 Diabetes mellitus type 2, co ntrolled, without complications 01/24/2011 10/16/2017 Diverticulosis of colon 08/25/201007/08 Colon polyp 08/25/2010 10/16/2017 Memory disturbance 07/24/2010 2 Elevated prostate specific antigen (PSA) 07/20/2009 08/04/2012 Shortness of breath 05/10/2009 07/19/20 09 Pulmonary Nodules 08/22/2007 08/04/2012 Overview: Possible asbestosis, pleural plaques. Personal history of colonic polyps 06/13/2005 08/04/2012 Overview: Tubular adenoma. 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 Peripheral arterial disease (HCC)- Primary Peripheral vascular disease, unspecified [facility] Diagnosis Onychomycosis- Primary Dermatophytosis of nail Pain in toe of right foot Pain in limb Pain in toe of left foot Pain in limb Diabetic polyneuropathy associated with type 2 diabetes mellitus (HCC) PAD (peripheral artery disease) (HCC) Peripheral vascular disease, unspecified 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 Diagnosis S/P TURP (status post transurethral resection of prostate)- Primary Other postprocedural status Chronic idiopathic constipation Unspecified constipation Well controlled type 2 diabetes mellitus with neurological manifestations (HCC) Type II or unspecified type diabetes mellitus with neurological manifestations, not stated as uncontrolled Allergic rhinitis, unspecified seasonality, unspecified trigger Essential hypertension Unspecified essential hypertension [facility] Diagnosis Chronic idiopathic constipation- Primary Unspecified constipation Altered bowel habits Other symptoms involving digestive system Nausea and vomiting, unspecified vomiting type documented [facility] this [facility] Diagnosis Chronic idiopathic constipation Unspecified constipation Altered bowel habits Other symptoms involving digestive system [facility] Diagnosis Chronic idiopathic constipation Unspecified constipation Altered bowel habits Other symptoms involving digestive system [facility] Diagnosis Chronic idiopathic constipation Unspecified constipation Altered bowel habits Other symptoms involving digestive system [facility] Diagnosis Chronic idiopathic constipation- Primary Unspecified constipation S/P TURP (status post transurethral resection of prostate) Other postprocedural status Altered bowel habits Other symptoms involving digestive system [facility] Diagnosis Respiratory failure, unspecified chronicity, unspecified whether with hypoxia or hypercapnia (HCC)- Primary Chronic pulmonary edema Pulmonary congestion and hypostasis Essential hypertension Unspecified essential hypertension Chronic obstructive pulmonary disease with acute exacerbation (HCC) Obstructive chronic bronchitis with exacerbation Stage 3a chronic kidney disease (HCC) S/P TURP (status post transurethral resection of prostate) Other postprocedural status 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) [facility] Diagnosis Onychomycosis- Primary Dermatophytosis of nail Pain in toe of right foot Pain in limb Pain in toe of left foot Pain in limb Diabetic polyneuropathy associated with type 2 diabetes mellitus (HCC) [facility] Diagnosis Onychomycosis- Primary Dermatophytosis of nail Pain in toe of right foot Pain in limb Pain in toe of left foot Pain in limb Diabetic polyneuropathy associated with type 2 diabetes mellitus (HCC) PAD (peripheral artery disease) (HCC) Peripheral vascular disease, unspecified [facility] Diagnosis Onychomycosis- Primary Dermatophytosis of nail Pain in toe of right foot Pain in limb Pain in toe of left foot Pain in limb Diabetic polyneuropathy associated with type 2 diabetes mellitus (HCC) PAD (peripheral artery disease) (HCC) Peripheral vascular disease, unspecified [facility] Diagnosis Peripheral arterial disease (HCC)- Primary Peripheral vascular disease, unspecified [facility] Diagnosis Onychomycosis- Primary Dermatophytosis of nail Pain in toe of right foot Pain in limb Pain in toe of left foot Pain in limb Diabetic polyneuropathy associated with type 2 diabetes mellitus (HCC) PAD (peripheral artery disease) (HCC) Peripheral vascular disease, unspecified [facility] Diagnosis Screening for nephropathy- Primary Peripheral vascular disease (HCC) Peripheral vascular disease, unspecified [facility] Diagnosis Leg swelling- Primary Swelling of limb Peripheral vascular disease (HCC) Peripheral vascular disease, unspecified Aorto-iliac atherosclerosis (HCC) Atherosclerosis of aorta Atherosclerosis of inupiat artery of both lower extremities with intermittent claudication (HCC) Atherosclerosis of inupiat arteries of the extremities with intermittent claudication S/P aorta repair Other postprocedural status Former smoker Personal history of tobacco use, presenting hazards to health Essential hypertension Unspecified essential hypertension Peripheral arterial disease (HCC) Peripheral vascular disease, unspecified Superficial femoral artery occlusion (HCC) Atherosclerosis of inupiat arteries of the extremities, unspecified Mixed hyperlipidemia 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) Respiratory failure, unspecified chronicity, unspecified whether with hypoxia or hypercapnia (HCC) PAD (peripheral artery disease) (HCC) Peripheral vascular disease, unspecified [facility] Diagnosis Peripheral vascular disease (HCC)- Primary Peripheral vascular disease, unspecified [facility] Diagnosis Encounter for screening for cardiovascular disorders- Primary Screening for other and unspecified cardiovascular conditions [facility] Diagnosis Peripheral arterial disease (HCC)- Primary Peripheral vascular disease, unspecified Atherosclerosis of inupiat artery of left lower extremity with rest pain (HCC) Atherosclerosis of inupiat arteries of the extremities with rest pain PAD (peripheral artery disease) (HCC) Peripheral vascular disease, unspecified Superficial femoral artery occlusion (HCC) Atherosclerosis of inupiat arteries of the extremities, unspecified Abnormal ankle brachial index (MELISSA) 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 [facility] this encounter 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 Outpatient Procedure (Routine) - Pending Review Specialty Diagnoses / Procedures Referred By Contac t Referred To Contact [facility] [place] Diagnoses Peripheral arterial disease (HCC) Procedures PVR LEG [facility] VAS LAB NON-INVASIVE PHYSIOLOGIC STUDY EXTREMITY 3 LEVLS Eliza Mallory DO [address] [place] [address] [facility] [address] [address] Referral ID Status Reason Start Date Expiration Date Visits Requested Visits Authorized [id number] Pending Review Auto-Generat ed Referral 01/09/2022 01/09/2023 1 1 * Outpatient Procedure (Routine) - Pending Review Specialty Diagnoses / Procedures Referred By Contac t Referred To Contact [facility] [place] Diagnoses Peripheral arterial disease (HCC) Procedures US ABD AORTA COMPLETE VAS LAB DUP-SCAN AORTA IVC ILIAC VASCL/BPGS COMPLETE Eliza Mallory DO [address] [place] [address] [facility] [id number] [place] [address] Referral ID Status Reason Start Date Expiration Date Visits Requested Visits Authorized [id number] Pending Review Auto-Generat ed Referral 01/09/2022 01/09/2023 1 1 [facility] for referral (narrative)* Outpatient Procedure (Routine) - Authorized Specialty Diagnoses / Procedures Referred By Contac t Referred To Contact [facility] Diagnoses Chronic idiopathic constipation Altered bowel habits Procedures COLONOSCOPY DIAGNOSTIC COLONOSCOPY FLX DX W/COLLJ SPEC WHEN PFColton Del Cid MD [address] [place] [address] [facility] [address] [place] [address] Referral ID Status Reason Start Date Expiration Date Visits Requested Visits Authorized [id number] Authorized Auto-Generat ed Referral 04/26/2022 04/26/2023 1 1 * Diagnostic Procedure Only (Routine) - Closed Specialty Diagnoses / Procedures Referred By Contac t Referred To Contact XR IMAGING Diagnoses Chronic idiopathic constipation Altered bowel habits Procedures XR ABDOMEN 1V SUPINE RADIOLOGIC EXAM ABDOMEN 1 VIEW Colton Mendez MD [address] [place] [address] Xr Imaging Referral ID Status Reason Start Date Expiration Date V isits Requested Visits Authorized [id number] Closed Auto-Generate d Referral 04/26/2022 05/26/2023 1 1 [facility] for referral (narrative)* Diagnostic Procedure Only (Routine) - Closed Specialty Diagnoses / Procedures Referred By Contac t Referred To Contact XR IMAGING Diagnoses Chronic idiopathic constipation Altered bowel habits Procedures XR ABDOMEN 1V SUPINE RADIOLOGIC EXAM ABDOMEN 1 VIEW Colton Mendez MD [address] [place] [address] Xr Imaging Referral ID Status Reason Start Date Expiration Date V isits Requested Visits Authorized [id number] Closed Auto-Generate d Referral 04/26/2022 05/26/2023 1 1 [facility] for referral (narrative)* Diagnostic Procedure Only (Routine) - Closed Specialty Diagnoses / Procedures Referred By Naveen herrera Referred To Contact XR IMAGING Diagnoses Chronic idiopathic constipation Altered bowel habits Procedures XR ABDOMEN 1V SUPINE RADIOLOGIC EXAM ABDOMEN 1 VIEW Colton Mendez MD [address] [place] [address] Xr Imaging Referral ID Status Reason Start Date Expiration Date V isits Requested Visits Authorized [id number] Closed Auto-Generate d Referral 05/03/2022 05/26/2023 1 1 [facility] for referral (narrative)* Diagnostic Procedure Only (Routine) - Pending Review Specialty Diagnoses / Procedures Referred By Naveen herrera Referred To Contact XR IMAGING Diagnoses Altered bowel habits Procedures XR ABDOMEN 1V SUPINE RADIOLOGIC EXAM ABDOMEN 1 VIEW Dominique Reese APRN.CNS [address] [place] [address] Xr Imaging Referral ID Status Reason Start Date Expiration Date Visits Requested Visits Authorized [id number] Pending Review Auto-Generat ed Referral 05/14/2022 06/13/2023 1 1 [facility] for referral (narrative)* Outpatient Procedure (Routine) - Pending Review Specialty Diagnoses / Procedures Referred By Naveen herrera Referred To Contact [facility] Diagnoses Peripheral vascular disease (HCC) Procedures PVR ANK PRESS [facility] NON-INVAS PHYSIOLOGIC STD EXTREMITY ART 2 LEVEL Rene Swift MD [address] [place] [address] [facility] [place] [address] [place] [address] Referral ID Status Reason Start Date Expiration Date Visits Requested Visits Authorized [id number] Pending Review Auto-Generat ed Referral 09/06/2023 09/05/2024 1 1 [facility] for referral (narrative)* Outpatient Procedure (Routine) - Pending Review Specialty Diagnoses / Procedures Referred By Naveen herrera Referred To Contact [facility] [place] Diagnoses Encounter for screening for cardiovascular disorders Procedures ECHO ECHO TTHRC R-T 2D W/WOM-MODE COMPL SPEC&COLR D Rene Swift MD [address] [place] [address] [address] Referral ID Status Reason Start Date Expiration Date Visits Requested Visits Authorized [id number] Pending Review Auto-Generat ed Referral 09/06/2023 09/05/2024 1 1 * Diagnostic Procedure Only (Routine) - Pending Review Specialty Diagnoses / Procedures Referred By Naveen herrera Referred To Contact [facility]CULAR [facility]ING Diagnoses Encounter for screening for cardiovascular disorders Procedures NM CARDIAC PERF STRESS/PHARM MYOCARDIAL SPECT MULTIPLE STUDIES Rene Swift MD [address] [place] [address] Molecular & Functional Imaging [address] [place] [address] Referral ID Status Reason Start Date Expiration Date Visits Requested Visits Authorized [id number] Pending Review Auto-Generat ed Referral 09/06/2023 10/05/2024 1 1 [facility] for referral (narrative)* Outpatient Procedure (Routine) - Pending Review Specialty Diagnoses / Procedures [facility] Referred To Contact [facility] Diagnoses Peripheral arterial disease (HCC) Procedures PVR LEG [facility] NON-INVASIVE PHYSIOLOGIC STUDY EXTREMITY 3 Rene Blas MD [address] [place] [address] [address] Referral ID Status Reason Start Date Expiration Date Visits Requested Visits Authorized [id number] Pending Review Auto-Generat ed Referral 06/13/2024 12/11/2024 1 1 [facility] for visit Narrative* Diagnostic Procedure Only (Routine) - Closed Specialty Diagnoses / Procedures Referred By Contac t Referred To Contact XR IMAGING Diagnoses Chronic idiopathic constipation Altered bowel habits Procedures XR ABDOMEN 1V SUPINE RADIOLOGIC EXAM ABDOMEN 1 VIEW Colton Mendez MD [address] [place] [address] Xr Imaging Referral ID Status Reason Start Date Expiration Date V isits Requested Visits Authorized [id number] Closed Auto-Generate d Referral 04/26/2022 05/26/2023 1 1 [facility] for visit Narrative* Diagnostic Procedure Only (Routine) - Closed Specialty Diagnoses / Procedures Referred By Naveen t Referred To Contact XR IMAGING Diagnoses Chronic idiopathic constipation Altered bowel habits Procedures XR ABDOMEN 1V SUPINE RADIOLOGIC EXAM ABDOMEN 1 VIEW Colton Mendez MD [address] [facility] [place] [address] Xr Imaging Referral ID Status Reason Start Date Expiration Date V isits Requested Visits Authorized [id number] Closed Auto-Generate d Referral 05/03/2022 05/26/2023 [address] 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 Advance Directive(s) 08/05/2018 11:34 AM Advance Directive(s) 12/08/2015 12:19 PM Advance Directive(s) 12/05/2015 11:47 AM Advance Directive(s) 12/05/2015 12:35 PM Advance Directive(s) 11/14/2015 10:54 AM Documents on File Type Date Recorded Patient Bar Waiter/Waitress Expl anation Advance Directive(s) 08/05/2018 11:34 AM Advance Directive(s) 12/08/2015 12:19 PM Advance Directive(s) 12/05/2015 11:47 AM Advance Directive(s) 12/05/2015 12:35 PM Advance Directive(s) 11/14/2015 10:54 AM Documents on File Type Date Recorded Patient Bar Waiter/Waitress Expl anation Advance Directive(s) 12/08/2015 12:19 PM Documents on File Type Date Recorded Patient Bar Waiter/Waitress Expl anation Advance Directive(s) 12/08/2015 12:19 PM Documents on File Type Date Recorded Patient Bar Waiter/Waitress Expl anation Advance Directive(s) 11/22/2023 7:29 AM Advance Directive(s) 12/08/2015 12:19 PM Documents on File Type Date Recorded Patient Bar Waiter/Waitress Expl anation Advance Directive(s) 11/22/2023 7:29 AM Advance Directive(s) 12/08/2015 12:19 PM Reason for Referral Specialty Diagnoses / Procedures Referred By Contac t Referred To Contact Nephrology Diagnoses Stage 3a chronic kidney disease (HCC) Procedures CONSULT TO NEPHROLOGY OFFICE/OUTPATIENT [facility] MDM 60-74 MINUTES Timothy, Samantha, ELECTROCARDIOGRAPH OPERATOR.RAILROAD SIGNAL TECHNICIAN [address] [place] [address] Referral ID Status Reason Start Date Expiration Date Visits Requested Visits Authorized [id number] Pending Review PCP Requested Referral 02/07/2022 02/07/2023 1 1 Specialty Diagnoses / Procedures Referred By Contac t Referred To Contact General Surgery Diagnoses Chronic idiopathic constipation Altered bowel habits Procedures CONSULT TO GENERAL SURGERY OFFICE/OUTPATIENT [facility] 60-74 MINUTES Dominique Reese, ELECTROCARDIOGRAPH OPERATOR.LIQUOR GRINDING MILL OPERATOR [address] [place] [address] Referral ID Status Reason Start Date Expiration Date Visits Requested Visits Authorized [id number] Pending Review PCP Requested Referral 04/12/2022 04/12/2023 1 1 Specialty Diagnoses / Procedures Referred By Contac t Referred To Contact Gastroenterology Diagnoses Chronic idiopathic constipation Altered bowel habits Procedures CONSULT TO GASTROENTEROLOGY OFFICE/OUTPATIENT [facility] 60-74 MINUTES Dominique Reese, ELECTROCARDIOGRAPH OPERATOR.LIQUOR GRINDING MILL OPERATOR [address] [place] [address] Referral ID Status Reason Start Date Expiration Date Visits Requested Visits Authorized [id number] Pending Review PCP Requested Referral 04/12/2022 04/12/2023 1 1 Specialty Diagnoses / Procedures Referred By Contac t Referred To Contact CT IMAGING Diagnoses Peripheral vascular disease (HCC) Procedures CTA ABD/PEL LOWER EXTREM W IVCON CTA ABDL AORTA&BI ILIOFEM W/CONTRAST&POSTP Eliza Mallory, DO [address] [place] [address] [place] [address] Referral ID Status Reason Start Date Expiration Date Visits Requested Visits Authorized [id number] Pending Review Auto-Generat ed Referral 05/21/2023 06/12/2024 1 1 Summary Purpose Family History No Family History Records FoundNo Family History Records FoundNo Family History Records Found Additional Source Comments Source Comments (unrecognize d section and content) In the event this informatio n is protected by the Federal Confidentiality of Alcohol and Drug Abuse Patient Records regulations: The Federal rules restrict any use of the information to criminally investigate or prosecute any alcohol or drug abuse patient.[facility] the event this information is protected by the Federal Confidentiality of Alcohol and Drug Abuse Patient Records regulations: The Federal rules restrict any use of the information to criminally investigate or prosecute any alcohol or drug abuse patient.[facility] Center[facility] the event this information is protected by the Federal Confidentiality of Alcohol and Drug Abuse Patient Records regulations: The Federal rules restrict any use of the information to criminally investigate or prosecute any alcohol or drug abuse patient.[facility] Center[facility] the event this information is protected by the Federal Confidentiality of Alcohol and Drug Abuse Patient Records regulations: The Federal rules restrict any use of the information to criminally investigate or prosecute any alcohol or drug abuse patient.[facility] Center[facility] the event this information is protected by the Federal Confidentiality of Alcohol and Drug Abuse Patient Records regulations: The Federal rules restrict any use of the information to criminally investigate or prosecute any alcohol or drug abuse patient.[facility] Center[facility] the event this information is protected by the Federal Confidentiality of Alcohol and Drug Abuse Patient Records regulations: The Federal rules restrict any use of the information to criminally investigate or prosecute any alcohol or drug abuse patient.[facility] Center[facility] the event this information is protected by the Federal Confidentiality of Alcohol and Drug Abuse Patient Records regulations: The Federal rules restrict any use of the information to criminally investigate or prosecute any alcohol or drug abuse patient.[facility] Center[facility] the event this information is protected by the Federal Confidentiality of Alcohol and Drug Abuse Patient Records regulations: The Federal rules restrict any use of the information to criminally investigate or prosecute any alcohol or drug abuse patient.[facility] Center[facility] the event this information is protected by the Federal Confidentiality of Alcohol and Drug Abuse Patient Records regulations: The Federal rules restrict any use of the information to criminally investigate or prosecute any alcohol or drug abuse patient.[facility] Center[facility] the event this information is protected by the Federal Confidentiality of Alcohol and Drug Abuse Patient Records regulations: The Federal rules restrict any use of the information to criminally investigate or prosecute any alcohol or drug abuse patient.[facility] Center[facility] the event this information is protected by the Federal Confidentiality of Alcohol and Drug Abuse Patient Records regulations: The Federal rules restrict any use of the information to criminally investigate or prosecute any alcohol or drug abuse patient.[facility] Center[facility] the event this information is protected by the Federal Confidentiality of Alcohol and Drug Abuse Patient Records regulations: The Federal rules restrict any use of the information to criminally investigate or prosecute any alcohol or drug abuse patient.[facility] Center[facility] the event this information is protected by the Federal Confidentiality of Alcohol and Drug Abuse Patient Records regulations: The Federal rules restrict any use of the information to criminally investigate or prosecute any alcohol or drug abuse patient.[facility] Center[facility] the event this information is protected by the Federal Confidentiality of Alcohol and Drug Abuse Patient Records regulations: The Federal rules restrict any use of the information to criminally investigate or prosecute any alcohol or drug abuse patient.[facility] Center[facility] the event this information is protected by the Federal Confidentiality of Alcohol and Drug Abuse Patient Records regulations: The Federal rules restrict any use of the information to criminally investigate or prosecute any alcohol or drug abuse patient.[facility] CenterIn the event this information is protected by the Federal Confidentiality of Alcohol and Drug Abuse Patient Records regulations: The Federal rules restrict any use of the information to criminally investigate or prosecute any alcohol or drug abuse patient.[facility] CenterIn the event this information is protected by the Federal Confidentiality of Alcohol and Drug Abuse Patient Records regulations: The Federal rules restrict any use of the information to criminally investigate or prosecute any alcohol or drug abuse patient.[facility] CenterIn the event this information is protected by the Federal Confidentiality of Alcohol and Drug Abuse Patient Records regulations: The Federal rules restrict any use of the information to criminally investigate or prosecute any alcohol or drug abuse patient.[facility] CenterIn the event this information is protected by the Federal Confidentiality of Alcohol and Drug Abuse Patient Records regulations: The Federal rules restrict any use of the information to criminally investigate or prosecute any alcohol or drug abuse patient.[facility] CenterIn the event this information is protected by the Federal Confidentiality of Alcohol and Drug Abuse Patient Records regulations: The Federal rules restrict any use of the information to criminally investigate or prosecute any alcohol or drug abuse patient.[facility] CenterIn the event this information is protected by the Federal Confidentiality of Alcohol and Drug Abuse Patient Records regulations: The Federal rules restrict any use of the information to criminally investigate or prosecute any alcohol or drug abuse patient.[facility] CenterIn the event this information is protected by the Federal Confidentiality of Alcohol and Drug Abuse Patient Records regulations: The Federal rules restrict any use of the information to criminally investigate or prosecute any alcohol or drug abuse patient.[facility] CenterIn the event this information is protected by the Federal Confidentiality of Alcohol and Drug Abuse Patient Records regulations: The Federal rules restrict any use of the information to criminally investigate or prosecute any alcohol or drug abuse patient.[facility] CenterIn the event this information is protected by the Federal Confidentiality of Alcohol and Drug Abuse Patient Records regulations: The Federal rules restrict any use of the information to criminally investigate or prosecute any alcohol or drug abuse patient.[facility] CenterIn the event this information is protected by the Federal Confidentiality of Alcohol and Drug Abuse Patient Records regulations: The Federal rules restrict any use of the information to criminally investigate or prosecute any alcohol or drug abuse patient.[facility] CenterIn the event this information is protected by the Federal Confidentiality of Alcohol and Drug Abuse Patient Records regulations: The Federal rules restrict any use of the information to criminally investigate or prosecute any alcohol or drug abuse patient.[facility] Reason for Visit (unrecogniz ed section and content) Reason Comments Established Patient Reason Comments Established Patient Nail Care Reason Comments F/U 6 months Reason Comments Hospital F/U Reason Comments Hospital F/U constipation Reason Comments Consult Constipation Specialty Diagnoses / Procedures Referred By Naveen herrera Referred To Contact General Surgery Diagnoses Chronic idiopathic constipation Altered bowel habits Procedures CONSULT TO GENERAL SURGERY OFFICE/OUTPATIENT [facility] MDM 60-74 MINUTES Dominique Reese, ELECTROCARDIOGRAPH OPERATOR.LIQUOR GRINDING MILL OPERATOR [address] [place] [address] Referral ID Status Reason Start Date Expiration Date Visits Requested Visits Authorized [id number] Pending Review PCP Requested Referral 04/12/2022 04/12/2023 1 1 Reason Comments Follow Up Reason Comments Transition Of Care [facility] for shortnes s of breath Reason Comments Established Patient Follow Up Diabetic Foot Care Reason Comments Established Patient Follow Up nail care Reason Comments Established Patient Reason Comments Opened In Error Reason Comments Results Reason Comments Established Patient Follow Up Pain Diabetic Foot Care Reason Comments Orders Reason Comments Patient Question Reason Comments Request to return call Request to return call. Reason Comments Post Op 11/12/23 Lt iliofemora l thromboendarterectomy with patch graft Reason Comments Post Op 11/12/23 left endarter ectomy Care Teams (unrecognized sec tion and content) Manager Of Drilling Relationship Specialty Start Date End Date Emeka Horn MD [address] [place] [address] PCP - General 07/31/02 Chito Rivero [address] [place] [address] Consulting Pulmonary Disease 06/30/18 Manager Of Drilling Relationship Specialty Start Date End Date Emeka Horn MD [address] [place] [address] PCP - General 07/31/02 Chito Rivero [address] [place] [address] Consulting Pulmonary Disease 06/30/18 Manager Of Drilling Relationship Specialty Start Date End Date Emeka Horn MD [address] [place] [address] PCP - General 07/31/02 Chito Rivero [address] [place] [address] Consulting Pulmonary Disease 06/30/18 Manager Of Drilling Relationship Specialty Start Date End Date Emeka Horn MD [address] [facility] [place] [address] PCP - General 07/31/02 Chito Rivero [address] [place] [address] Consulting Pulmonary Disease 06/30/18 Manager Of Drilling Relationship Specialty Start Date End Date Emeka Horn MD [address] [place] [address] PCP - General 07/31/02 Chito Rivero [address] [place] [address] Consulting Pulmonary Disease 06/30/18 Manager Of Drilling Relationship Specialty Start Date End Date Emeka Horn MD [address] [facility] [place] [address] PCP - General 07/31/02 Chito Rivero [address] [place] [address] Consulting Pulmonary Disease 06/30/18 Manager Of Drilling Relationship Specialty Start Date End Date Emeka Horn MD [address] [facility] [place] [address] PCP - General 07/31/02 Chito Rivero [address] [place] [address] Consulting Pulmonary Disease 06/30/18 Manager Of Drilling Relationship Specialty Start Date End Date Emeka Horn MD [address] [place] [address] PCP - General 07/31/02 Chito Rivero [address] [place] [address] Consulting Pulmonary Disease 06/30/18 Manager Of Drilling Relationship Specialty Start Date End Date Emeka Horn MD [address] [facility] [place] [address] PCP - General 07/31/02 Chito Rivero [address] [place] [address] Consulting Pulmonary Disease 06/30/18 Manager Of Drilling Relationship Specialty Start Date End Date Emeka Horn MD [address] [facility] [place] [address] PCP - General 07/31/02 Chito Rivero [address] [place] [address] Consulting Pulmonary Disease 06/30/18 Manager Of Drilling Relationship Specialty Start Date End Date Chito Rivero [address] [place] [address] Consulting Pulmonary Disease 06/30/18 Manager Of Drilling Relationship Specialty Start Date End Date Chito Rivero [address] [place] [address] Consulting Pulmonary Disease 06/30/18 Manager Of Drilling Relationship Specialty Start Date End Date Chito Rivero [address] [place] [address] Consulting Pulmonary Disease 06/30/18 Manager Of Drilling Relationship Specialty Start Date End Date Chito Rivero [address] [place] [address] Consulting Pulmonary Disease 06/30/18 Manager Of Drilling Relationship Specialty Start Date End Date Chito Rivero [address] [place] [address] Consulting Pulmonary Disease 06/30/18 Manager Of Drilling Relationship Specialty Start Date End Date Chito Rivero [address] [place] [address] Consulting Pulmonary Disease 06/30/18 Manager Of Drilling Relationship Specialty Start Date End Date Riaz Whitman MD [address] [place] [address] PCP - General Internal Medicine 05/22/23 Chito Rivero MD [address] [place] [address] Consulting Pulmonary Disease 06/30/18 Manager Of Drilling Relationship Specialty Start Date End Date Riaz Whitman MD [address] [place] [address] PCP - General Internal Medicine 05/22/23 Chito Rivero MD [address] [place] [address] Consulting Pulmonary Disease 06/30/18 Manager Of Drilling Relationship Specialty Start Date End Date Riaz Whitman MD [address] [place] [address] PCP - General Internal Medicine 05/22/23 Chito Rivero MD [address] [place] [address] Consulting Pulmonary Disease 06/30/18 Manager Of Drilling Relationship Specialty Start Date End Date Riaz Whitman MD [address] [place] [address] PCP - General Internal Medicine 05/22/23 Chito Rivero MD [address] [place] [address] Consulting Pulmonary Disease 06/30/18 Manager Of Drilling Relationship Specialty Start Date End Date Riaz Whitman MD [address] [place] [address] PCP - General Internal Medicine 05/22/23 Chito Rivero MD [address] [place] [address] Consulting Pulmonary Disease 06/30/18 Manager Of Drilling Relationship Specialty Start Date End Date Riaz Whitman MD [address] [place] [address] PCP - General Internal Medicine 05/22/23 Chito Rivero MD [address] [place] [address] Consulting Pulmonary Disease 06/30/18 Manager Of Drilling Relationship Specialty Start Date End Date Riaz Whitman MD [address] [place] [address] PCP - General Internal Medicine 05/22/23 Chito Rivero MD [address] [place] [address] Consulting Pulmonary Disease 06/30/18 Manager Of Drilling Relationship Specialty Start Date End Date Riaz Whitman MD [address] [place] [address] PCP - General Internal Medicine 05/22/23 Chito Rivero MD [address] [place] [address] Consulting Pulmonary Disease 06/30/18 (unrecognized sect ion and content) No Status Records FoundNo Status Records FoundNo Status Records Found INFORMATION SOURCE (unrecogn ized section and content) DATE CREATED AUTHOR AUTHOR'S ORGANIZ ATION 11/26/2023 [facility] DATE CREATED AUTHOR AUTHOR'S ORGANIZ ATION 12/13/2023 [facility] FOR RECORDS PERTAINING TO PATIENTS WHO ARE OR HAVE BEEN ENROLLED IN A CHEMICAL DEPENDENCY/SUBSTANCEABUSE PROGRAM, SOME INFORMATION MAY BE OMITTED. This clinical summary was aggregated from multiple sources. Caution should be exercised in using it in the provision of clinical care. This summary normalizes information from multiple sources, and as a consequence, information in this document may materially change the coding, format and clinical context of patient data. In addition, data may be omitted in some cases. CLINICAL DECISIONS SHOULD BE BASED ON THE PRIMARY CLINICAL RECORDS. [facility]. provides no warranty or guarantee of the accuracy or completeness of information in this document.
== END | disposition home or self-care (01) ==
LOC: BIMLAB 14:36
PROVIDERS: PCP Internal Medicine; Referring Provider Nurse Practitioner; Visit Provider Nurse Practitioner
DX: I48.91 Unspecified atrial fibrillation (principal); D64.9 Anemia, unspecified; I10 Essential (primary) hypertension
CPT/HCPCS: 36415; 80048; 82607; 82728; 82746; 83540; 83550; 85027

== ENCOUNTER → 2023-12-19 | Outpatient (CLI) | payer MEDICARE, SELFPAY ==
[2023-12-19 16:09] LABS: Absolute Lymphocyte Count 1.13 X10^3/uL (0.83-4.51); Absolute Neutrophil Count 5.1 X10^3/uL (2.0-7.7); Basophil# 0.03 X10^3/uL; Basophil% 0.4 % (0-1); Eosinophil# 0.14 X10^3/uL; Hematocrit 26.5 % (40-54); Hemoglobin 7.8 g/dL (13.0-16.5); Lymphocyte # 1.13 X10^3/ul (0.83-4.51); Lymphocyte % 15.9 % (19-41); Mean Corp Hgb Conc 29.4 g/dL (32-36); Mean Corpuscular Hgb 24.5 pg (27.0-32.0); Mean Corpuscular Volume 83.1 fL (80-94); Monocyte# 0.67 X10^3/uL; Monocyte% 9.4 % (0-10); NRBC Flagged by Analyzer 0 % (0-5); Platelet Count 181 K/mm3 (150-450); RBC Distribution Width SD 48.3 fl (35.1-43.9); Red Blood Count 3.19 M/mm3 (4.6-6.2); White Blood Count 7.1 K/mm3 (4.4-11.0)
--- OUTSIDE RECORDS SUMMARY | 2023-12-19 21:09 | XMS RPT_ITS | CCD ---
Author Name Unknown Address [address] [place] [address] Organization [facility] Care Team Providers Care Broadcast Checker Name Role Phone Emeka Horn MD Primary Care Provider [phone] Chito Rivero Unavailable [phone] Chito Rivero Unavailable [phone] Chito Rivero MD Unavailable Riaz Whitman MD Primary Care Provider [phone] MELI, RIAZ G Primary Care Unavailable RENE [...] Primary Care Unavailable ELIZA MALLORY Referring Unavailable ELIAZ MALLORY Attending Unavailable ELIZA MALLORY Referring Unavailable ELIZA MALLORY Referring Unavailable VIPUL BRADY Attending Unavailable VIPUL BRADY Referring Unavailable MLEI, RIAZ G Primary Care Unavailable RENE SWIFT Attending Unavailable RENE SWIFT Referring Unavailable RENE SWIFT Referring Unavailable [...] cilostazol; Translations: [CILOSTAZOL] Drug Allergy 2 Itching [facility] Work Phone: (20 sources) Felodipine; Translations: [FELODIPINE] Drug Allergy 5 Rash [facility] Work Phone: (20 sources) levoFLOXacin; Translations: [LEVOFLOXACIN] Drug Allergy 5 Hives [facility] (20 sources) Sulfonamides (Antibiotic); Translations: [SULFA (SULFONAMIDE ANTIBIOTICS)] Propensity to adverse reactions 5 Itching [facility] Work Phone: Medications Current Medications Medication Drug [...] Coronary atherosclerosis; Translations: [Atherosclerotic heart disease of nikolai coronary artery without angina pectoris] Onset: 06-13-2005 [...] 66 mm[Hg] Rene Swift MD Work Phone: [facility] 12-12-2023 09:14-0500 Heart rate 65 /min Rene Swift MD Work Phone: [facility] 12-12-2023 09:14-0500 SaO2% (BldA) [Mass fraction] 99 % Rene Swift MD Work Phone: [facility] 12-12-2023 09:14-0500 Systolic blood pressure 135 mm[Hg] Rene Swift MD Work Phone: [facility] 11-25-2023 11:15-0500 Body height 172.7 cm Rene Swift MD Work Phone: [facility] 11-25-2023 11:15-0500 Body weight 88.45 kg Rene Swift MD Work Phone: [facility] 11-25-2023 11:15-0500 Diastolic blood pressure 66 mm[Hg] Rene Swift MD Work Phone: [facility] 11-25-2023 11:15-0500 Heart rate 62 /min Rene Swift MD Work Phone: [facility] 11-25-2023 11:15-0500 Respiratory rate 16 /min Rene Swift MD Work Phone: [facility] 11-25-2023 11:15-0500 Systolic blood pressure 124 mm[Hg] Rene Swift MD Work Phone: [facility] 08-21-2023 13:15-0500 Diastolic blood pressure 52 mm[Hg] Rene Swift MD Work Phone: [facility] 08-21-2023 13:15-0500 Heart rate 46 /min Rene Swift MD Work Phone: [facility] 08-21-2023 13:15-0500 SaO2% (BldA) [Mass fraction] 97 % Rene Swift MD Work Phone: [facility] 08-21-2023 13:15-0500 Systolic blood pressure 124 mm[Hg] Rene Swift MD Work Phone: [facility] 02-05-2023 10:02-0400 Diastolic blood pressure 68 mm[Hg] Eliza Mallory DO Work Phone: [facility] 02-05-2023 10:02-0400 Heart rate 63 /min Eliza Mallory DO Work Phone: [facility] 02-05-2023 10:02-0400 SaO2% (BldA) [Mass fraction] 100 % Eliza Mallory DO Work Phone: [facility] 02-05-2023 10:02-0400 Systolic blood pressure 134 mm[Hg] Eliza Mallory DO Work Phone: [facility] 05-25-2022 16:25-0400 Diastolic blood pressure 67 mm[Hg] Emeka Horn MD Work Phone: [facility] 05-25-2022 16:25-0400 Heart rate 60 /min Emeka Horn MD Work Phone: [facility] 05-25-2022 16:25-0400 Systolic blood pressure 171 mm[Hg] Emeka Horn MD Work Phone: [facility] 05-25-2022 16:05-0400 Body temperature 97.2 [degF] Emeka Horn MD Work Phone: [facility] 05-25-2022 16:05-0400 Body weight 87.54 kg Emeka Horn MD Work Phone: [facility] 05-25-2022 16:05-0400 Respiratory rate 16 /min Emeka Horn MD Work Phone: [facility] 05-25-2022 16:05-0400 SaO2% (BldA) [Mass fraction] 95 % Emeka Horn MD Work Phone: [facility] 05-14-2022 10:51-0400 Body weight 89.36 kg Dominique Reese APRN.DRAMA DIRECTOR Work Phone: [facility] 05-14-2022 10:51-0400 Diastolic blood pressure 52 mm[Hg] Dominique Reese APRN.DRAMA DIRECTOR Work Phone: [facility] 05-14-2022 10:51-0400 Heart rate 63 /min Dominique Reese CYLINDER PRESS OPERATOR HELPER.DRAMA DIRECTOR Work Phone: [facility] 05-14-2022 10:51-0400 Respiratory rate 16 /min Dominique Reese CYLINDER PRESS OPERATOR HELPER.DRAMA DIRECTOR Work Phone: [facility] 05-14-2022 10:51-0400 SaO2% (BldA) [Mass fraction] 96 % Dominique Reese CYLINDER PRESS OPERATOR HELPER.DRAMA DIRECTOR Work Phone: [facility] 05-14-2022 10:51-0400 Systolic blood pressure 138 mm[Hg] Dominique Reese CYLINDER PRESS OPERATOR HELPER.DRAMA DIRECTOR Work Phone: [facility] 04-26-2022 13:02-0400 Body height 177.8 cm Cloton Mendez MD Work Phone: [facility] 04-26-2022 13:02-0400 Body temperature 97.2 [degF] Colton Mendez MD Work Phone: [facility] 04-26-2022 13:02-0400 Body weight 88 kg Colton Mendez MD Work Phone: [facility] 04-26-2022 13:02-0400 Diastolic blood pressure 60 mm[Hg] Colton Mendez MD Work Phone: [facility] 04-26-2022 13:02-0400 Heart rate 78 /min Colton Mendez MD Work Phone: [facility] 04-26-2022 13:02-0400 Respiratory rate 20 /min Colton Mendez MD Work Phone: [facility] 04-26-2022 13:02-0400 SaO2% (BldA) [Mass fraction] 95 % Colton Mendez MD Work Phone: [facility] 04-26-2022 13:02-0400 Systolic blood pressure 124 mm[Hg] Colton Mendez MD Work Phone: [facility] 04-12-2022 10:33-0400 Body weight 87.54 kg Dominique Reese CYLINDER PRESS OPERATOR HELPER.DRAMA DIRECTOR Work Phone: [facility] 04-12-2022 10:33-0400 Diastolic blood pressure 58 mm[Hg] Dominique Reese CYLINDER PRESS OPERATOR HELPER.DRAMA DIRECTOR Work Phone: [facility] 04-12-2022 10:33-0400 Heart rate 60 /min Dominique Reese CYLINDER PRESS OPERATOR HELPER.DRAMA DIRECTOR Work Phone: [facility] 04-12-2022 10:33-0400 Respiratory rate 16 /min Dominique Reese CYLINDER PRESS OPERATOR HELPER.DRAMA DIRECTOR Work Phone: [facility] 04-12-2022 10:33-0400 SaO2% (BldA) [Mass fraction] 96 % Dominique Reese CYLINDER PRESS OPERATOR HELPER.DRAMA DIRECTOR Work Phone: [facility] 04-12-2022 10:33-0400 Systolic blood pressure 122 mm[Hg] Dominique Reese CYLINDER PRESS OPERATOR HELPER.DRAMA DIRECTOR Work Phone: [facility] 03-28-2022 13:19-0400 Body temperature 97 [degF] Emeka Horn MD Work Phone: [facility] 03-28-2022 13:19-0400 Body weight 88.18 kg Emeka Horn MD Work Phone: [facility] 03-28-2022 13:19-0400 Diastolic blood pressure 58 mm[Hg] Emeka Horn MD Work Phone: [facility] 03-28-2022 13:19-0400 Heart rate 60 /min Emeka Horn MD Work Phone: [facility] 03-28-2022 13:19-0400 Respiratory rate 18 /min Emeka Horn MD Work Phone: [facility] 03-28-2022 13:19-0400 Systolic blood pressure 136 mm[Hg] Emeka Horn MD Work Phone: [facility] 02-07-2022 10:00-0400 Diastolic blood pressure 64 mm[Hg] Samantha Aguirre CYLINDER PRESS OPERATOR HELPER.BEHAVIORAL GENETICIST Work Phone: [facility] 02-07-2022 10:00-0400 Systolic blood pressure 132 mm[Hg] Samantha Older CYLINDER PRESS OPERATOR HELPER.BEHAVIORAL GENETICIST Work Phone: [facility] 02-07-2022 09:39-0400 Body weight 93.44 kg Samantha Older CYLINDER PRESS OPERATOR HELPER.BEHAVIORAL GENETICIST Work Phone: [facility] 02-07-2022 09:39-0400 Heart rate 60 /min Samantha Older CYLINDER PRESS OPERATOR HELPER.BEHAVIORAL GENETICIST Work Phone: [facility] 02-07-2022 09:39-0400 Respiratory rate 22 /min Samantha Older CYLINDER PRESS OPERATOR HELPER.BEHAVIORAL GENETICIST Work Phone: [facility] 02-07-2022 09:39-0400 SaO2% (BldA) [Mass fraction] 96 % Samantha Older CYLINDER PRESS OPERATOR HELPER.BEHAVIORAL GENETICIST Work Phone: [facility] 01-09-2022 09:11-0400 Diastolic blood pressure 72 mm[Hg] Eliza Mallory DO Work Phone: [facility] 01-09-2022 09:11-0400 Systolic blood pressure 160 mm[Hg] Eliza Mallory DO Work Phone: [facility] 01-09-2022 09:08-0400 Body height 170.2 cm Eliza Mallory DO Work Phone: [facility] 01-09-2022 09:08-0400 Body weight 93.89 kg Eliza Mallory DO Work Phone: [facility] 01-09-2022 09:08-0400 Heart rate 62 /min Eliza Mallory DO Work Phone: [facility] 01-09-2022 09:08-0400 SaO2% (BldA) [Mass fraction] 97 % Eliza Mallory DO Work Phone: [facility] Encounters Encounter Date Encounter Type Care Provider Facility Start: 12-12-2023 End: 12-12-2023 ambulatory RIAZ G MELI Facility:[facility] Start: 12-12-2023 End: 12-12-2023 Patient encounter procedure Rene Swift MD Work Phone: Vascular Surgery Procedures Date Procedure Procedure Detail Performing Clinician Start: 11-05-2023 Antibody screen RENE TO Plan of Treatment Date Care Activity Detail Author Start: 11-12-2024 Hepatitis B surface antibody level LDL Cholesterol [facility] Start: 06-13-2024 End: 12-11-2024 US Lower extremity artery - bilateral PVR [facility] Lab Routine Peripheral arterial disease (HCC) Expected: 06/13/2024, Expires: 12/11/2024 [facility] Work Phone: Immunizations Immunization Date Immunization Notes Care Provider Fa ekta 06-26-2023 influenza (HD-IIV4) vaccine, age 65+ yr, high dose, quadrivalent, PF (FLUZONE HIGH-DOSE) Rene Swift MD Work Phone: [facility] 07-24-2022 influenza (HD-IIV4) vaccine, age 65+ yr, high dose, quadrivalent, PF (FLUZONE HIGH-DOSE) Rene Swift MD Work Phone: [facility] 08-07-2021 COVID-19 vaccine, ag e 12+ yr (PFIZER-BIONTECH - PURPLE TOP) Eliza Mallory DO Work Phone: [facility] Work Phone: 06-28-2021 influenza, high dose seasonal, preservative-free Eliza Mallory DO Work Phone: [facility] Work Phone: 11-23-2020 COVID-19 vaccine, ag e 12+ yr (PFIZER-BIONTECH - PURPLE TOP) Eliza Mallory DO Work Phone: [facility] Work Phone: 11-02-2020 COVID-19 vaccine, ag e 12+ yr (PFIZER-BIONTECH - PURPLE TOP) Eliza Mallory DO Work Phone: [facility] 10-10-2020 zoster vaccine recombinant Eliza Mallory DO Work Phone: [facility] Work Phone: 08-02-2020 zoster vaccine recombinant Eliza Mallory DO Work Phone: [facility] Work Phone: 07-25-2020 influenza, high-dose , quadrivalent vaccine (FLUZONE HIGH DOSE QUADRIVALENT) Eliza Mallory DO Work Phone: [facility] Work Phone: 07-25-2020 pneumococcal polysaccharide vaccine, 23 valent Eliza Mallory DO Work Phone: [facility] Work Phone: 06-23-2019 influenza, high dose seasonal, preservative-free Eliza Mallory DO Work Phone: [facility] Work Phone: 07-18-2018 influenza, high dose seasonal, preservative-free Eliza Mallory DO Work Phone: [facility] 07-06-2017 influenza, high dose seasonal, preservative-free Eliza Mallory DO Work Phone: [facility] 08-13-2016 influenza, injectabl e, quadrivalent, contains preservative Eliza Mallory DO Work Phone: [facility] Work Phone: 08-13-2016 influenza, injectabl e, quadrivalent, preservative free Rene Swift MD Work Phone: [facility] 10-11-2015 influenza, high dose seasonal, preservative-free Eliza Mallory DO Work Phone: [facility] 05-11-2015 pneumococcal conjuga te vaccine, 13 valent Eliza Mallory DO Work Phone: [facility] 07-23-2013 influenza virus vacc ine, whole virus Eliza Mallory DO Work Phone: [facility] Work Phone: 07-03-2012 influenza virus vacc ine, unspecified formulation Eliza Mallory DO Work Phone: [facility] Work Phone: 06-25-2011 influenza virus vacc ine, unspecified formulation Eliza Mallory DO Work Phone: [facility] Work Phone: 08-04-2010 influenza virus vacc ine, unspecified formulation Eliza Mallory DO Work Phone: [facility] Work Phone: 10-05-2009 novel influenza-H1N1 -09, preservative-free, injectable Eliza Mallory DO Work Phone: [facility] Work Phone: 07-19-2009 influenza virus vacc ine, unspecified formulation Eliza Mallory DO Work Phone: [facility] 06-30-2008 pneumococcal polysaccharide vaccine, 23 valent Eliza Mallory DO Work Phone: [facility] Work Phone: 08-06-2007 influenza virus vacc ine, unspecified formulation Eliza Mallory DO Work Phone: [facility] Work Phone: 06-12-2007 tetanus and diphther ia toxoids, adsorbed, preservative free, for adult use (2 Lf of tetanus toxoid and 2 Lf of diphtheria toxoid) Eliza Mallory DO Work Phone: [facility] Work Phone: 08-12-2003 pneumococcal polysaccharide vaccine, 23 valent Eliza Mallory DO Work Phone: [facility] Work Phone: Payers Date Payer Category Payer Medicare [employer] [place] [id number] 2007-Present [phone] [address] [place] [address] [facility] [id number] 2007 Medicare [id number] 2007 Medicare [id number] Social History Date Type Detail Facility Start: 05-14-2022 Tobacco smoking status NHIS Ex-smoker [facility] End: 02-05-2008 History of tobacco use Current smoker [facility] End: 02-05-2008 History of tobacco use Cigarette Smoker [facility] End: 02-05-2008 History of tobacco use Cigar Smoker [facility] Start: 10-12-2021 End: 12-12-2023 Alcohol intake Current drinker of alcohol (finding) [facility] Start: 08-31-2020 End: 08-10-2021 History SDOH Alcohol Frequency 2 [facility] Start: 08-31-2020 End: 12-21-2020 History SDOH Alcohol Std Drinks 1 [facility] Start: 02-12-2011 History SDOH Alcohol Comment Rare [facility] Start: 02-16-2020 End: 07-19-2020 History SDOH Social Connections Meetings 3 [facility] Start: 02-16-2020 End: 07-19-2020 History SDOH Physical Activity DPW 4 [facility] Start: 09-30-2019 Education 12 [facility] Start: 1935 Sex Assigned At Male [facility] Start: 12-04-2021 End: 09-06-2022 Exposure to SARS-CoV-2 (event) Not sure [facility] Start: 05-14-2022 End: 03-29-2023 Cigarettes smoked current (pack per day) - Reported 0.5 [facility] Start: 05-14-2022 Tobacco use and exposure Smokeless tobacco non-user [facility] Work Phone: Start: 02-16-2020 End: 03-29-2023 Social connection and isolation panel [facility] Do you belong to any clubs or organizations such as mormon groups, unions, fraternal or athletic groups, or school groups? Yes [facility] Are you now , , , , never or living with a partner? [facility] How often to you hav e a drink containing alcohol? Monthly or less [facility] How many standard dr inks containing alcohol do you have on a typical day? 1 or 2 [facility] How often do you hav e 6 or more drinks on 1 occasion? Never [facility] How hard is it for y ou to pay for the very basics like food, housing, medical care, and heating Not very hard [facility] Adult Depression Screening Assessment 0 [facility] Do you feel stress - tense, restless, nervous, or anxious, or unable to sleep at night because your mind is troubled all the time - these days [OSQ] To some extent [facility] (I/We) worried wheth er (my/our) food would run out before (I/we) got money to buy more. Never true [facility] In the past 12 month s, was there a time when you were not able to pay the mortgage or rent on time? No [facility] Start: 07-02-2019 Gender identity Identifies as male gender (finding) [facility] Start: 02-17-2020 Sexual orientation Heterosexual (finding) [facility] Work Phone: Medical Equipment Procedure Code Equipment Code Equipment Original Text Equipment Identifier Dates Patch Vascu-Guar d Taper Bovine Pericardial 8x.8cm Cardiovascular [facility] - [id number] Start: 08-05-2018 Clinical Notes 05-11-2015 to 12-12-2023 Rene Swift MD - 12/12/2023 9:49 AM Rene House MD - 11/25/2023 5:39 PM ESTTelephone Encounter - Jessica Bentley LPN - 11/22/2023 10:02 AM Rene House MD - 08/21/2023 1:20 PM EST Note Date & Type Note Facility 12-12-2023 Note HNO ID: [id number] Author: RENE SWIFT MD Service: ? Author Type: Physician Type: Progress Notes Filed: 12/12/2023 13:45 Note Text: Surgery/Procedure Date: 11/12/2023 Surgeon(s)/Proceduralist(s) and Production Support Specialist(s): Surgeon(s) and Role: * Rene Swift MD - Primary * Remberto Nunn MD - Resident - Assisting Procedure(s): Left ileofemoral endarterectomy and bovine patch profundaplasty Left lower extremity angiogram Intraoperative duplex ultrasound of patch repair [facility] VISIT Woody Hernandes [phone] HPI: Mr. Hernandes is a 88 year [...] 10/18/2023 Adjustment disord (more content not included)... [facility] 12-12-2023 History of Presen t illness Narrative Images from the original note were not included. Surgery/Procedure Date: 11/12/2023 Surgeon(s)/Proceduralist(s) and Production Support Specialist(s): Surgeon(s) and Role: * Rene Swift MD - Primary * Remberto Nunn MD - Resident - Assisting Procedure(s): Left ileofemoral endarterectomy and bovine patch profundaplasty Left lower extremity angiogram Intraoperative duplex ultrasound of patch repair [facility] VISIT Woody Hernandes [phone] HPI: Mr. 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 Hilliard. Coronary atherosclerosis of unspecified type of vessel, nikolai or graft 06/13/2005 Diverticulitis of colon (without [...] MAJOR SURGERY 1998 With inguinal hernia repair [facility] INCL FLUOR GDNCE DX W/CELL WASHG [...] 12/12/2023 With PVRs documented in this encounter [facility] 11-25-2023 Note HNO ID: [id number] Author: RENE SWIFT MD Service: ? Author Type: Physician Type: Progress Notes Filed: 11/25/2023 17:50 Note Text: Surgery/Procedure Date: 11/12/2023 Surgeon(s)/Proceduralist(s) and Production Support Specialist(s): Surgeon(s) and Role: * Rene Swift MD - Primary * Remberto Nunn MD - Resident - Assisting Procedure(s): Left ileofemoral endarterectomy and bovine patch profundaplasty Left lower extremity angiogram Intraoperative duplex ultrasound of patch repair [facility] VISIT Woody Hernandes [phone] HPI: Mr. Hernandes is a 88 year [...] depres (more content not included)... [facility] 11-25-2023 History of Presen t illness Narrative Images from the original note were not included. Surgery/Procedure Date: 11/12/2023 Surgeon(s)/Proceduralist(s) and Production Support Specialist(s): Surgeon(s) and Role: * Rene Swift MD - Primary * Remberto Nunn MD - Resident - Assisting Procedure(s): Left ileofemoral endarterectomy and bovine patch profundaplasty Left lower extremity angiogram Intraoperative duplex ultrasound of patch repair [facility] VISIT Woody Hernandes [phone] HPI: Mr. 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 Hilliard. Coronary atherosclerosis of unspecified type of vessel, nikolai or graft 06/13/2005 Diverticulitis of colon (without [...] MAJOR SURGERY 1998 With inguinal hernia repair [facility] INCL FLUOR GDNCE DX W/CELL WASHG [...] Surgery Staff 11/25/2023 documented in this encounter [facility] 11-22-2023 Miscellaneous Notes Patient notified per below. [...] further as well, and Dr. Swift is extrusion line operator this , so if there are any concerns over the weekend, pt can call the office and they will put him in touch with him. Thanks, Bijal Zee APRN.BEHAVIORAL GENETICIST Post Note: Patient calling in requesting return [...] medical facility. Patient states he lives in [place]. This Nurse advised patient to go to the closest hospital where someone can have eyes on him and someone look at his foot and proper evaluation/assessment and diagnostics can be done. This can't be done over the phone. Patient states that he will just wait until his upcoming appointment. Jessica Bentley LPN November 21, 2023 4:51 PM documented in this encounter [facility] 11-15-2023 Note HNO ID: [id number] Author: MARY RIVERA RN Service: Care Management [...] Primary Care Physician Name/Phone: Dr. Riaz Whitman [phone] Additional Information: The patient will dc to home today with family to transport. He will follow up with PCP outpatient. He has no [facility] needs. SIGNATURE: Mary Rivera RN PATIENT NAME: Woody Hernandes DATE: November 15, 2023 TIME: 12:25 PM CONTACT #: [phone] [facility] 11-15-2023 Note HNO ID: [id number] Author: NIKOLAI DIALLO PA-C Service: Vascular Surgery Author Type: Physician Production Support Specialist Type: Progress Notes Filed: 11/15/2023 11:25 Note Text: Vascular Surgery Progress Note SERVICE DATE: 11/15/2023 Vascular Surgery Service Pager: For questions or concerns Mon-Fri 6a-5p please page [phone]. After 5pm and on Weekends and Holidays, please page [phone] if in ICU or [phone] if on RNF. Subjective SUBJECTIVE: CC: PAD [...] 0659 11/15/23 07 - 11/16/23 0659 Shift 3440-6355 0380-7437 3992-5820 24 Hour Total 2515-1781 3108-5121 2018-4319 24 Hour Total INTAKE PO 022 532 8250 PO 071 561 0614 Shift Total 650 695 9155 OUTPUT Urine 400 805 156 4629 Void (ml) 400 812 663 5215 Shift Total 400 170 030 4337 Weight (kg) 89.6 89.6 89.6 89.6 89.6 [...] ORAL q 48 H ipratropium bromide 2 [place] nasal spray (ATROVENT) 2 [place] NASAL QID isosorbide mononitrate ER 30 mg [...] thrombosis (HCC) 11/09/2023 PAD (peripheral artery disease) ([facility]) 06/11/2018 Priority: A Overview Note: Added automatically from request for surgery [id number] Coronary artery disease involving nikolai coronary artery of nikolai heart without angina pectoris 06/13/2005 Priority: B Hypertension 06/12/2005 Priority: E History of CAD (coronary artery disease) 11/11/2023 Preoperative clearance 10/30/2023 Heart failure with preser (more content not included)... [facility] 11-15-2023 Note HNO ID: [id number] Author: MARY RIVERA RN Service: Care Management [...] 15, 2023 TIME: 10:46 AM PAGER/CONTACT #: [phone] [facility] 11-14-2023 Note HNO ID: [id number] Author: RENE SWIFT MD Service: General Surgery [...] Following Dc 1 week wound check at [facility] 4-6 weeks follow up at [place] with PVRs and LLE arterial duplex Signature: Rene Swift MD Date: 11/14/2023. Time: 4:54 PM Vascular Surgery Progress Note SERVICE DATE: 11/14/2023 Vascular Surgery Service Pager: For questions or concerns Mon-Fri 6a-5p please page [phone]. After 5pm and on Weekends and Holidays, [...] 11/13/23699 - 11/14/2365811/14/23699 - 11/15/23 0659 Shift 3630-1602 7904-7274 1954-4452 24 Hour Total 9714-4256 6255-5452 1670-1961 24 Hour Total INTAKE PO 300 300 400 400 PO 300 300 400 400 Shift Total 300 300 400 400 OUTPUT Urine 225 843 571 6488 200 200 Void (ml) 150 700 850 200 200 Output ([REMOVED] Indwelling Urinary Catheter 11/12/23 [facility] Coude 16 Fr 11/13/23 0902) 225 225 Shift Total 225 000 112 2455 200 200 Weight (kg) 89.6 89.6 89.6 [...] ORAL q 48 H ipratropium bromide 2 [place] nasal spray (ATROVENT) 2 [place] NASAL QID isosorbide mononitrate ER 30 mg [...] ABDO (more content not included)... [facility] 11-13-2023 Note HNO ID: [id number] Author: OSVALDO YUSUF DO Service: General Surgery Author Type: Resident Type: Progress Notes Filed: 11/14/2023 13:28 Note Text: Vascular Surgery Progress Note SERVICE DATE: 11/13/2023 Vascular Surgery Service Pager: For questions or concerns Mon-Fri 6a-5p please page [phone]. After 5pm and on Weekends and Holidays, please page [phone] if in ICU or [phone] if on RNF. Subjective SUBJECTIVE: Stroke workup [...] 0659 11/13/23 0700 - 11/14/23 0659 Shift 3787-4589 3886-6580 24 Hour Total 8924-7194 1287-3951 0186-1543 24 Hour Total INTAKE IV 2700 2700 Volume (mL) (lactated ringers iv infusion) 1500 1500 Volume (mL) (NaCl 0.9% iv infusion) 1200 1200 Blood Products 600 1350 Cell Saver Returned Volume 600 1000 Infusion Complete Volume (mL) (RBC Transfusion Instruction) 350 Shift Total 3300 4050 OUTPUT Urine 875 680 0306 225 225 OR Urine Output 600 Output ([REMOVED] Indwelling Urinary Catheter 11/12/23 [facility] Coude 16 Fr 11/13/23 0902) 200 350 550 225 225 Blood 1100 1400 Estimated Blood loss 1100 1400 Shift Total 2289 601 8387 225 225 Weight (kg) 89.6 89.6 89.6 [...] ORAL q 48 H ipratropium bromide 2 [place] nasal spray (ATROVENT) 2 [place] NASAL QID isosorbide mononitrate ER 30 mg [...] thrombosis (HCC) 11/09/2023 PAD (peripheral artery disease) ([facility]) 06/11/2018 Priority: A Overview Note: Added automatically from request for surgery [id number] Coronary artery disease involving nikolai (more content not included)... [facility] 11-13-2023 Note HNO ID: [id number] Author: RENE SWIFT MD Service: Vascular Surgery [...] 13, 2023 TIME: 10:36 AM PAGER/CONTACT #: [phone] [facility] 11-13-2023 Note HNO ID: [id number] Author: DENAE ORDOÑEZ RN Service: Care Management Author Type: Registered Nurse Type: Care Mgt Initial Assessment Filed: 11/13/2023 10:17 Note Text: CARE MANAGEMENT: ASSESSMENT AND DISCHARGE PLAN SERVICE DATE: November 13, 2023 SERVICE TIME: 10:11 AM PCP: Riaz Whitman MD Primary Contact: Extended Emergency Contact Information Primary Emergency Contact: Argentina Hernandes Address: [address] [place] [id number] [facility] Mobile Relation: Spouse Secondary Emergency Contact: Danni hernandes Mobile Relation: Relative Admission Status: Inpatient Insurance Provider: [place] Discharge Planning requested by: Per Department Practice Potential Transition Plans To Be Determined;Home;Home Care Advance Directives Current Advance Directive: Health Care Power of Airconditioning Drafting Officer In Chart: Yes Up To Date and [...] General wellness, Be able to go home [facility] of Choice Explained: [facility] Choice Given: No Reason Not Given: [...] (+) RX. Fills scripts at [facility] [place] but would like scripts delivered to the bedside at D/C. SIGNATURE: Denae Ordoñez RN PATIENT NAME: Woody Hernandes DATE: November 13, 2023 TIME: 10:11 AM CONTACT #: [phone] [facility] 11-12-2023 Note HNO ID: [id number] Author: TAMIA BACON DO Service: General Surgery [...] Surgery Resident 9:54 PM 11/12/2023 [facility] 11-12-2023 Note HNO ID: [id number] Author: KHUSHBOO VELÁZQUEZ MD Service: Anesthesiology Author [...] November 12, 2023 TIME: 9:02 AM CSN: [id number] [facility] 11-12-2023 Note HNO ID: [id number] Author: YOU ORTEZ APRN.CRNA Service: Anesthesiology Author Type: Nurse Seismograph Recorder Type: Anesthesia Procedure Notes Filed: 11/12/2023 09:01 Note Text: ANESTHESIOLOGY PROCEDURE NOTE Airway General Information Procedure Start Time/Medication Administration: 11/12/2023 8:26 AM Patient location during procedure: OR Timeout Performed Pre-procedure: timeout performed Consent Obtained: Yes Patient identity confirmed: arm band and patient Staffing EDITORIAL DIRECTOR: You Ortez APRN.EDITORIAL DIRECTOR Indications and Patient Condition Indications for airway [...] 1 Airway not difficult SIGNATURE: You Ortez APRN.EDITORIAL DIRECTOR PATIENT NAME: Woody Hernandes DATE: November 12, 2023 TIME: 9:00 AM CSN: [id number] [facility] 11-12-2023 Note HNO ID: [id number] Author: NIKOLAI DIALLO PA-C Service: Vascular Surgery Author Type: Physician Production Support Specialist Type: Progress Notes Filed: 11/12/2023 08:54 Note Text: Vascular Surgery Progress Note SERVICE DATE: 11/12/2023 Vascular Surgery Service Pager: For questions or concerns Mon-Fri 6a-5p please page [phone]. 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 [facility] 11-11-2023 Note HNO ID: [id number] Author: MELLISA ODOM, RN Service: Nursing Author Type: Registered Nurse Type: Nursing Progress Note Filed: 11/11/2023 12:12 Note Text: Lexiscan nuclear stress test explained and questions answered. [facility] 11-11-2023 Note HNO ID: [id number] Author: SHAQUILLE GILL RT(R) Service: Nuclear Medicine [...] PATIENT PRESENTS WITH AN IMPLANTABLE OR ATTACHED ANAESTHESIOLOGIST: No CREATININE: Creatinine Date Value Ref Range [...] No IV SITE: Inpatient - refer to [facility] documentation POST EXAM PIV STATUS: Left in for next appointment PROCEDURE TYPE: NM Stress: 13.6 mCi Ac22v-Rfkqfbq was administered IV for Rest Imaging at 945 by ms. 35.8 mCi Li28z-Lmawayg was administered IV for Stress Imaging at 1135 by ty. ADMINISTRATION TIME: 945 PATIENT DISCHARGED TO: Patient taken to IP transport area for return to [facility]/ICU/ED. A Diagnostic radioactive procedure has taken place, with no further precautions necessary other than routine body substance precautions. More information regarding radiation safety can be found using this link: [email or web address] [email or web address]%[email or web address]%20Medicin [email or web address] SIGNATURE: RT Lul(R) PATIENT NAME: Woody Hernandes DATE: November 11, 2023 TIME: 11:46 AM PAGER/CONTACT #: [facility] 11-11-2023 Note HNO ID: [id number] Author: NIKOLAI DIALLO PA-C Service: Vascular Surgery Author Type: Physician Production Support Specialist Type: Progress Notes Filed: 11/11/2023 15:01 Note Text: Vascular Surgery Progress Note SERVICE DATE: 11/11/2023 Vascular Surgery Service Pager: For questions or concerns Mon-Sat 6a-5p please page [phone]. After 5pm and on Weekends and Holidays, please page [phone] if in ICU or [phone] if on [facility]. Subjective SUBJECTIVE: CC: PAD Today I [...] - 11/11/2359 11/11/23699 - 11/12/23 0659 Shift 0389-0489 0904-4470 1554-3303 24 Hour Total 8506-7134 8190-0695 3659-7894 24 Hour Total INTAKE Shift Total OUTPUT [...] ORAL q 48 H ipratropium bromide 2 [place] nasal spray (ATROVENT) 2 [place] NASAL QID isosorbide mononitrate ER 30 mg [...] Valladares (more content not included)... [facility] 10-18-2023 Note HNO ID: [id number] Author: RENE SWIFT MD Service: ? Author Type: Physician Type: Progress Notes Filed: 10/18/2023 11:03 Note Text: Surgery/Procedure Date: 09/06/2023 Surgeon(s)/Proceduralist(s) and Production Support Specialist(s): Surgeon(s) and Role: * Rene Swift MD - Primary INTERVENTIONAL PROCEDURE: 1. Ultrasound-guided right common femoral access 2. Aorta and pelvic angiogram 3. Left ileofemoral angiogram 4. Right external iliac intravascular lithotripsy and DCB with 9x60 [facility] ESTABLISHED CLINIC VISIT Woody Hernandes [id number] HPI: Mr. Hernandes is a 88 year [...] mcg/actuation inhaler TWICE (more content not included)... [facility] 09-24-2023 Note HNO ID: [id number] Author: Vipul Brady Service: ? Author Type: [...] Objective: [facility] V[facility]: DP and PT pulses are nonpalpable [...] RTC in 3-4 months. Vipul Brady DPM [facility] 09-24-2023 Note HNO ID: [id number] Author: Chelsie Bradshaw LPN Service: ? Author Type: LICENSED NURSE Type: Progress Notes Filed: 09/24/2023 1:56 PM Note Text: AMB ROOMING INTAKE FLOWSHEET DATA Risk Screening Do you have concerns about personal safety or safety in the home?: No Patient presents with: Left Foot - Established Patient, Diabetic Foot Care Right Foot - Established Patient, Diabetic Foot Care Chelsie Bradshaw LPN [facility] 08-21-2023 Note HNO ID: [id number] Author: Rene Swift MD Service: ? Author Type: Physician Type: Progress Notes Filed: 08/21/2023 3:53 PM Note Text: [facility] DEPARTMENT OF VASCULAR SURGERY OUTPATIENT VISIT DATE August 21, 2023 OUTPATIENT VISIT TYPE CONSULTATION PRIMARY CARE PHYSICIAN: Riaz Whitman MD REFERRING PROVIDER: Eliza Meme Mallory [address] [place] [id number] Consult requested for an opinion regarding the evaluation and treatment of the above. My final impression and recommendations will be communicated back to the requesting physician by way of the shared medical record or letter via [place] mail. CHIEF COMPLAINT: Bilateral LE claudication HISTORY OF PRESENT ILLNESS: Woody Hernandse is a 88 year old male with [...] needed. acetaminophen (TYLENOL) (more content not included)... [facility] 08-21-2023 History of Presen t illness Narrative Images from the original note were not included. [facility] DEPARTMENT OF VASCULAR SURGERY OUTPATIENT VISIT DATE August 21, 2023 OUTPATIENT VISIT TYPE CONSULTATION PRIMARY CARE PHYSICIAN: Riaz Whitman MD REFERRING PROVIDER: Eliza Mallory [address] [place] [id number] Consult requested for an opinion regarding the [...] Dx: Z74.90, R26.89, I73.9, J44.1, M54.5, G89.29 Ivsmao-Exhnfgt-Efk Palm-Min 17 (PROSTATE THERAPY) cap Take 2 [...] 1998 Aorto-iliac atherosclerosis (HCC) 08/21/2023 Atherosclerosis of 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 (HCC) 08/21/2023 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 Hilliard. Coronary atherosclerosis of unspecified type of vessel, nikolai or graft 06/13/2005 Diverticulitis of colon (without [...] MAJOR SURGERY 1998 With inguinal hernia repair [facility] INCL FLUOR GDNCE DX W/CELL WASHG [...] Vascular Surgery Staff documented in this encounter [facility] 08-15-2023 Miscellaneous Notes Patient scheduled Patient called in stating someone from Dr. Mallory's office called so I'm returning the call . Please advise documented in this encounter [facility] 07-01-2023 Note HNO ID: [id number] Author: Vipul Brady Service: ? Author Type: [...] mellitus (HCC) (I73.9) PAD (peripheral artery disease) ([facility]) Plan: Patient was seen and evaluated. Nails 1-5 bilateral were debrided in length and thickness. Patient was instructed on the continued importance of diabetic foot care along with proper diet and keeping their blood sugar under control to prevent complications. Patient is to RTC in 3-4 months. Vipul Brady DPM [facility] 07-01-2023 Note HNO ID: [id number] Author: Annie Arzola RN Service: ? Author [...] times except from his toenails being long. [facility] 05-22-2023 Miscellaneous Notes Spoke with patient and transferred to central scheduling to schedule CT Patient calling he would not like to get scheduled for CT with runoff as recommended in March Please place order will call patient to schedule Order pending documented in this encounter [facility] 03-29-2023 Note HNO ID: [id number] Author: Vipul Brady Service: ? Author Type: [...] mellitus (HCC) (I73.9) PAD (peripheral artery disease) ([facility]) Plan: Patient was seen and evaluated. Nails [...] RTC in 3-4 months. Vipul Brady DPM [facility] 03-29-2023 Note HNO ID: [id number] Author: Chelsie Bradshaw LPN Service: ? Author [...] Diabetic Foot Care, Pain Chelsie Bradshaw LPN [facility] 03-29-2023 History of Presen t illness Narrative [...] mellitus (HCC) (I73.9) PAD (peripheral artery disease) ([facility]) Plan: Patient was seen and evaluated. Nails [...] Chelsie Bradshaw LPN documented in this encounter [facility] 03-29-2023 Instructions Vipul Brady - 03/29/2023 2:11 [...] (or decreased sensation in your feet) a ceramic capacitor processor should always cut your toenails. Be Careful [...] Go to your health care provider or ceramic capacitor processor to treat these conditions. documented in this encounter [facility] 03-28-2023 Miscellaneous Notes Spoke with Woody to [...] Rico CT abdomen/pelvis with contrast imported from [facility] () for review. Woody would like to be called with results. Please review and advise. JOSE Rico documented in this encounter [facility] 02-05-2023 Miscellaneous Notes Opened in error documented in this encounter [facility] 02-05-2023 Note HNO ID: [id number] Author: Eliza Mallory DO Service: Vascular Surgery Author Type: Physician Type: Progress Notes Filed: 02/15/2023 1:21 PM Note Text: NAME: WOODY HERNANDES [facility] NO: [id number] DATE OF SERVICE: 02/05/2023 Subjective: Mr. Hernandes [...] had a CT scan with contrast at [place]. We will review that and follow up afterwards, as his pain is getting progressive worse and worse and he does barely any ambulation. He may benefit from intervention pending review of his scans. He is agreeable to this plan. We will call him once I am able to see his CT from [place]. Eliza Mallory D.O. KB/[id number] Audio #: [id number] Date Dictated: 02/05/2023 08:25:11 Date Typed: 02/08/2023 09:08:43 Date Revised: [facility] 02-05-2023 Note HNO ID: [id number] Author: Eliza Mallory DO Service: ? Author Type: Physician Type: Progress Notes Filed: 02/05/2023 10:32 AM Note Text: This office note has been dictated. Eliza Mallory DO [facility] 02-05-2023 History of Presen t illness Narrative This office note has been dictated. Eliza Mallory DO documented in this encounter [facility] 12-14-2022 Note HNO ID: [id number] Author: Vipul Brady Service: ? Author Type: [...] Objective: Patient presents to clinic ambulating in [facility] Vasc: DP and PT pulses are nonpalpable bilateral. CFT is less than 5 seconds bilateral. Skin temperature is warm to cool proximal to distal bilateral. There is mild edema or varicosities noted. Non-Invasive Vascular Laboratory [facility] Lower Extremity Arterial Physiology Study Bilateral/Complete Date [...] mellitus (HCC) (I73.9) PAD (peripheral artery disease) ([facility]) Plan: Patient was seen and evaluated. Nails 1-5 bilateral were debrided in length and thickness. Small bleed to left 2nd toe. Patient was instructed on the continued importance of diabetic foot care along with proper diet and keeping their blood sugar under control to prevent complications. Patient is to RTC in 3-4 months. Vipul Brady DPM [facility] 12-14-2022 Note HNO ID: [id number] Author: Chelsie Bradshaw LPN Service: ? Author Type: LICENSED NURSE Type: Progress Notes Filed: 12/14/2022 2:20 PM Note Text: AMB ROOMING INTAKE FLOWSHEET DATA Patient presents with: Left Foot - Established Patient, Follow Up, Diabetic Foot Care Right Foot - Established Patient, Follow Up, Diabetic Foot Care Chelsie Bradshaw LPN [facility] 12-14-2022 History of Presen t illness Narrative [...] edema or varicosities noted. Non-Invasive Vascular Laboratory [facility] Lower Extremity Arterial Physiology Study Bilateral/Complete Date [...] mellitus (HCC) (I73.9) PAD (peripheral artery disease) ([facility]) Plan: Patient was seen and evaluated. Nails [...] Established Patient, Follow Up, Diabetic Foot Care Chlesie Bradshaw LPN documented in this encounter [facility] 12-14-2022 Instructions Vipul Brady - 12/14/2022 2:06 [...] (or decreased sensation in your feet) a ceramic capacitor processor should always cut your toenails. Be Careful [...] Go to your health care provider or ceramic capacitor processor to treat these conditions. documented in this encounter [facility] 09-06-2022 History of Presen t illness Narrative [...] mellitus (HCC) (I73.9) PAD (peripheral artery disease) ([facility]) Plan: Patient was seen and evaluated. Nails [...] at this time. documented in this encounter [facility] 09-06-2022 Instructions Vipul Brady - 09/06/2022 11:01 [...] (or decreased sensation in your feet) a ceramic capacitor processor should always cut your toenails. Be Careful [...] Go to your health care provider or ceramic capacitor processor to treat these conditions. documented in this encounter [facility] 05-31-2022 History of Presen t illness Narrative [...] Objective: Patient presents to clinic ambulating in [facility] Vasc: DP and PT pulses are faintly [...] Vipul Brady DPM documented in this encounter [facility] 05-31-2022 Instructions Vipul Brady - 05/31/2022 12:10 [...] (or decreased sensation in your feet) a ceramic capacitor processor should always cut your toenails. Be Careful [...] Go to your health care provider or ceramic capacitor processor to treat these conditions. documented in this encounter [facility] 05-25-2022 Instructions Emeka Horn MD - 05/25/2022 4:55 PM EDT ISOSORBIDE MONONITRATE 30 MG DAILY is prescribed from here in [facility]. CHECK WITH DR. MOORE IF TAMSULOSIN (Flomax) prescribed from the ER, is still needed. documented in this encounter [facility] 05-25-2022 History of Presen t illness Narrative This note was created using Geniusriter. Subjective Transitional Care Management Progress Note The [...] (2L) half the jug the second night [employer] Power scooter Dx: Z74.90, R26.89, I73.9, J44.1, M54.5, G89.29 Qiqsum-Jueggqy-Oyd Palm-Min 17 (PROSTATE THERAPY) cap Take 2 [...] MD TRANSITION CARE MANAGEMENT (TCM) INITIAL CONTACT [place] Outreach Provider Action/FYI: TCM Initial contact with patient post discharge, spoke to patient. Patient identified by name and . TRANSITION CARE MANAGEMENT INITIAL OUTREACH DOCUMENTATION: Date of Outreach: 05/18/2022 Outreach Attempt 1: Contact Made Date of Discharge 05/16/2022 Some recent data might be hidden SUMMARY: -Pt discharged from [facility] on 05/16/22. -Admitted for: decompensated [...] provider to review documented in this encounter [facility] 05-14-2022 History of Presen t illness Narrative [...] he has had urinary retention, seen at [facility] ER then by Dr Noriega. [...] cream Apply to affected area as needed. [employer] Power scooter Dx: Z74.90, R26.89, I73.9, J44.1, M54.5, G89.29 Melugu-Zemxmtt-Yze Palm-Min 17 (PROSTATE THERAPY) cap Take 2 [...] Coronary atherosclerosis of unspecified type of vessel, nikolai or graft 06/13/2005 Diverticulitis of colon (without [...] - XR ABDOMEN 1V SUPINE Dominique Reese APRN.DRAMA DIRECTOR documented in this encounter [facility] 05-02-2022 History of Presen t illness Narrative [...] 2022 10:39 AM documented in this encounter [facility] 04-26-2022 History of Presen t illness Narrative [...] 2022 2:05 PM documented in this encounter [facility] 04-26-2022 History of Presen t illness Narrative HISTORY AND PHYSICAL Woody Hernandes 1935 REFERRING PHYSICIAN: Dominique Reese APRN.DRAMA DIRECTOR CHIEF COMPLAINT: Consult (Constipation) HPI: The patient [...] Coronary atherosclerosis of unspecified type of vessel, nikolai or graft 06/13/2005 Diverticulitis of colon (without [...] MAJOR SURGERY 1998 With inguinal hernia repair [facility] INCL FLUOR GDNCE DX W/CELL WASHG [...] cream Apply to affected area as needed. [employer] Power scooter Dx: Z74.90, R26.89, [...] to printed prep instructions from your provider. Umavps-Umfmasw-Rqq Palm-Min 17 (PROSTATE THERAPY) cap Take 2 [...] entered by the nurse and reviewed by il Nursing Notes: Liz Murcia RN 04/26/2022 1:36 [...] Colton Mendez MD documented in this encounter [facility] 04-26-2022 Instructions Colton Mendez MD - 04/26/2022 [...] If you do not have a responsible sales route driver (family member or friend) with you to [...] midnight. 2 09/2019 documented in this encounter [facility] 04-26-2022 Nurse Note REVIEW OF SYSTEMS: General: [...] Liz Murcia RN documented in this encounter [facility] 04-12-2022 Instructions Dominique Reese APRN.KORIN - 04/12/2022 11:16 AM EDT Drink about 64 ounces of fluid daily OK to take miralax once or twice daily as needed. OK to try metamucil gummies. Schedule appointment with general surgery to discuss colonoscopy documented in this encounter [facility] 04-12-2022 History of Presen t illness Narrative [...] cream Apply to affected area as needed. [employer] Power scooter Dx: Z74.90, R26.89, I73.9, J44.1, M54.5, G89.29 Umfugf-Rksxbsi-Btl Palm-Min 17 (PROSTATE THERAPY) cap Take 2 [...] Coronary atherosclerosis of unspecified type of vessel, nikolai or graft 06/13/2005 Diverticulitis of colon (without [...] in usual quantity. Note colonoscopy 2016 at [facility], polyps noted. 5-year follow-up recommended. Recommend he [...] 4 - Moderate documented in this encounter [facility] 03-28-2022 History of Presen t illness Narrative This note was created using Geniusriter. Subjective Woody Hernandes is a 86 year old male. He had TURP 03/07/22. He was admitted 03/09-03/22/22 for debility. He was back home now and going to [facility] for outpatient PT. His only complaints [...] Type 2 Diabetes Mellitus With Neurological Manifestations ([facility]) Chronic Midline Low Back Pain Without Sciatica Peripheral Arterial Disease ([facility]) Tobacco Use Disorder S/P Femoral-Popliteal Bypass Surgery Obesity, Class I, Bmi 30-34.9 Ckd (Chronic Kidney Disease) Stage 3, Gfr 30-59 Ml/Min ([facility]) Current Outpatient Medications Medication Sig metFORMIN (GLUCOPHAGE) [...] cream Apply to affected area as needed. [employer] Power scooter Dx: Z74.90, R26.89, I73.9, J44.1, M54.5, G89.29 Dznwdu-Iikxelq-Qsd Palm-Min 17 (PROSTATE THERAPY) cap Take 2 [...] Emeka Horn MD documented in this encounter [facility] 02-07-2022 History of Presen t illness Narrative [...] cough associated with COPD is overall stable, cigarette maker is Dr. Rivero. Using Symbicort and albuterol nebulizer as instructed. He has chronic BLE edema which is overall stable. 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 REVIEW OF SYSTEMS General: no [...] Coronary atherosclerosis of unspecified type of vessel, nikolai or graft 06/13/2005 Diverticulitis of colon (without [...] MAJOR SURGERY 1998 With inguinal hernia repair [facility] INCL FLUOR GDNCE DX W/CELL WASHG [...] cream Apply to affected area as needed. [employer] Power scooter Dx: Z74.90, R26.89, I73.9, J44.1, M54.5, G89.29 Zmbmvp-Cymwpds-Xlj Palm-Min 17 (PROSTATE THERAPY) cap Take 2 [...] Samantha Aguirre APRN.CNP documented in this encounter [facility] 02-07-2022 Nurse Note 02/07/2022: Home BP Cuff Validated. Home BP: 157/101 HR 89 Office BP: 158/74 HR 60 documented in this encounter [facility] 02-02-2022 History of Presen t illness Narrative [...] Objective: Patient presents to clinic ambulating in [facility] Vasc: DP and PT pulses are nonpalapble [...] mellitus (HCC) (I73.9) PAD (peripheral artery disease) ([facility]) Plan: Patient was seen and evaluated. Nails [...] Patient, Nail Care documented in this encounter [facility] 02-02-2022 Instructions Vipul Brady - 02/02/2022 1:47 [...] (or decreased sensation in your feet) a ceramic capacitor processor should always cut your toenails. Be Careful [...] Go to your health care provider or ceramic capacitor processor to treat these conditions. documented in this encounter [facility] 01-09-2022 History of Presen t illness Narrative This office note has been dictated. Eliza Mallory DO documented in this encounter [facility] 12-28-2021 Miscellaneous Notes Perfect! Thank you! Spoke with patient and rescheduled AAA and scheduled PVR on 01/08/22. Cassie Dueñas This patient needs additional testing, PVR- order in placed, scheduled prior to appointment. Also the AAA testing is scheduled after the visit and that does not work. Please schedule both tests prior to the appointment. Thank you! documented in this encounter [facility] documented as of this encounter (statuses as of 12/28/2021) [facility] History of Past illness Narrative* Problem Noted Date Resolved Date PAD (peripheral artery disease) 06/11/2018 10/29/2018 Overview: Added automatically from request for surgery [id number] Last Assessment & Plan: S/P Surgery. Continue [...] of this encounter (statuses as of 01/09/2022) [facility] History of Past illness Narrative* Problem Noted Date Resolved Date PAD (peripheral artery disease) 06/11/2018 10/29/2018 Overview: Added automatically from request for surgery [id number] Last Assessment & Plan: S/P Surgery. Continue [...] of this encounter (statuses as of 02/02/2022) [facility] History of Past illness Narrative* Problem Noted Date Resolved Date PAD (peripheral artery disease) 06/11/2018 10/29/2018 Overview: Added automatically from request for surgery [id number] Last Assessment & Plan: S/P Surgery. Continue [...] of this encounter (statuses as of 02/07/2022) [facility] History of Past illness Narrative* Problem Noted Date Resolved Date PAD (peripheral artery disease) 06/11/2018 10/29/2018 Overview: Added automatically from request for surgery [id number] Last Assessment & Plan: S/P Surgery. Continue [...] of this encounter (statuses as of 03/28/2022) [facility] of Past [facility] Narrative* Problem Noted Date Resolved Date PAD (peripheral artery disease) 06/11/2018 10/29/2018 Overview: Added automatically from request for surgery [id number] Last Assessment & Plan: S/P Surgery. Continue [...] of this encounter (statuses as of 04/12/2022) [facility] of Past illness Narrative* Problem Noted Date Resolved Date PAD (peripheral artery disease) 06/11/2018 10/29/2018 Overview: Added automatically from request for surgery [id number] Last Assessment & Plan: S/P Surgery. Continue [...] of this encounter (statuses as of 04/26/2022) [facility] of Past [facility] Narrative* Problem Noted Date Resolved Date PAD (peripheral artery disease) 06/11/2018 10/29/2018 Overview: Added automatically from request for surgery [id number] Last Assessment & Plan: S/P Surgery. Continue [...] of this encounter (statuses as of 04/27/2022) [facility] of [facility] Narrative* Problem Noted Date Resolved Date PAD (peripheral artery disease) 06/11/2018 10/29/2018 Overview: Added automatically from request for surgery [id number] Last Assessment & Plan: S/P Surgery. Continue [...] of this encounter (statuses as of 05/03/2022) [facility] of Past [facility] Narrative* Problem Noted Date Resolved Date PAD (peripheral artery disease) 06/11/2018 10/29/2018 Overview: Added automatically from request for surgery [id number] Last Assessment & Plan: S/P Surgery. Continue [...] of this encounter (statuses as of 05/14/2022) [facility] of [facility] Narrative* Problem Noted Date Resolved Date PAD (peripheral artery disease) 06/11/2018 10/29/2018 Overview: Added automatically from request for surgery [id number] Last Assessment & Plan: S/P Surgery. Continue [...] of this encounter (statuses as of 05/27/2022) [facility] of [facility] Narrative* Problem Noted Date Resolved Date PAD (peripheral artery disease) 06/11/2018 10/29/2018 Overview: Added automatically from request for surgery [id number] Last Assessment & Plan: S/P Surgery. Continue [...] of this encounter (statuses as of 05/31/2022) [facility] of Past [facility] Narrative* Problem Noted Date Resolved Date PAD (peripheral artery disease) 06/11/2018 10/29/2018 Overview: Added automatically from request for surgery [id number] Last Assessment & Plan: S/P Surgery. Continue [...] of this encounter (statuses as of 09/06/2022) [facility] of [facility] Narrative* Problem Noted Date Resolved Date PAD (peripheral artery disease) 06/11/2018 10/29/2018 Overview: Added automatically from request for surgery [id number] Last Assessment & Plan: S/P Surgery. Continue [...] of this encounter (statuses as of 12/14/2022) [facility] of [facility] Narrative* Problem Noted Date Resolved Date PAD (peripheral artery disease) 06/11/2018 10/29/2018 Overview: Added automatically from request for surgery [id number] Last Assessment & Plan: S/P Surgery. Continue [...] of this encounter (statuses as of 02/05/2023) [facility] of [facility] Narrative* Problem Noted Date Resolved Date PAD (peripheral artery disease) 06/11/2018 10/29/2018 Overview: Added automatically from request for surgery [id number] Last Assessment & Plan: S/P Surgery. Continue [...] of this encounter (statuses as of 02/07/2023) [facility] of Past [facility] Narrative* Problem Noted Date Resolved Date PAD (peripheral artery disease) 06/11/2018 10/29/2018 Overview: Added automatically from request for surgery [id number] Last Assessment & Plan: S/P Surgery. Continue [...] of this encounter (statuses as of 03/28/2023) [facility] of Past [facility] Narrative* Problem Noted Date Resolved Date PAD (peripheral artery disease) 06/11/2018 10/29/2018 Overview: Added automatically from request for surgery [id number] Last Assessment & Plan: S/P Surgery. Continue [...] of this encounter (statuses as of 03/29/2023) [facility] History of Past [facility] Narrative* Problem Noted Date Diagnosed Date Resolved Date PAD (peripheral artery disease) 06/11/2018 10/29/2018 Overview: Added automatically from request for surgery [id number] Last Assessment & Plan: S/P Surgery. Continue [...] of this encounter (statuses as of 05/23/2023) [facility] of Past [facility] Narrative* Problem Noted Date Diagnosed Date Resolved Date PAD (peripheral artery disease) 06/11/2018 10/29/2018 Overview: Added automatically from request for surgery [id number] Last Assessment & Plan: S/P Surgery. Continue [...] of this encounter (statuses as of 08/15/2023) [facility] of Past [facility] Narrative* Problem Noted Date Diagnosed Date Resolved Date PAD (peripheral artery disease) 06/11/2018 10/29/2018 Overview: Added automatically from request for surgery [id number] Last Assessment & Plan: S/P Surgery. Continue [...] of this encounter (statuses as of 08/22/2023) [facility] History of Past [facility] Narrative* Problem Noted Date Diagnosed Date Resolved Date PAD (peripheral artery disease) 06/11/2018 10/29/2018 Overview: Added automatically from request for surgery [id number] Last Assessment & Plan: S/P Surgery. Continue [...] of this encounter (statuses as of 09/06/2023) [facility] of Past illness Narrative* Problem Noted Date Diagnosed Date Resolved Date PAD (peripheral artery disease) 06/11/2018 10/29/2018 Overview: Added automatically from request for surgery [id number] Last Assessment & Plan: S/P Surgery. Continue [...] of this encounter (statuses as of 09/06/2023) [facility] History of Past illness Narrative* Problem Noted [...] of this encounter (statuses as of 11/22/2023) [facility] History of Past illness Narrative* Problem Noted [...] of this encounter (statuses as of 11/25/2023) [facility] History of Past illness Narrative* Problem Noted [...] of this encounter (statuses as of 12/12/2023) [facility] Peripheral arterial disease (HCC)- Primary Peripheral vascular disease, unspecified [facility] Diagnosis Onychomycosis- Primary Dermatophytosis of nail Pain in toe of right foot Pain in limb Pain in toe of left foot Pain in limb Diabetic polyneuropathy associated with type 2 diabetes mellitus (HCC) PAD (peripheral artery disease) (HCC) Peripheral vascular disease, unspecified [facility] Diagnosis Well controlled type 2 [...] tract symptoms (LUTS) [facility] Diagnosis S/P TURP (status post transurethral resection of prostate)- Primary Other postprocedural status Chronic idiopathic constipation Unspecified constipation Well controlled type 2 diabetes mellitus with neurological manifestations (HCC) Type II or unspecified type diabetes mellitus with neurological manifestations, not stated as uncontrolled Allergic rhinitis, unspecified seasonality, unspecified trigger Essential hypertension Unspecified essential hypertension [facility] Diagnosis Chronic idiopathic constipation- Primary Unspecified constipation Altered bowel habits Other symptoms involving digestive system Nausea and vomiting, unspecified vomiting type [facility] Diagnosis Chronic idiopathic constipation Unspecified constipation Altered bowel habits Other symptoms involving digestive system [facility] Diagnosis Chronic idiopathic constipation Unspecified constipation Altered bowel habits Other symptoms involving digestive system [facility] Diagnosis Chronic idiopathic constipation Unspecified constipation Altered bowel habits Other symptoms involving digestive system [facility] Diagnosis Chronic idiopathic constipation- Primary Unspecified constipation S/P TURP (status post transurethral resection of prostate) Other postprocedural status Altered bowel habits Other symptoms involving digestive system [facility] Diagnosis Respiratory failure, unspecified chronicity, unspecified [...] ejection fraction (HCC) [facility] Diagnosis Onychomycosis- Primary Dermatophytosis of [...] atherosclerosis (HCC) Atherosclerosis of aorta Atherosclerosis of 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 (HCC) Atherosclerosis of nikolai arteries of the extremities with intermittent claudication S/P aorta repair Other postprocedural status Former smoker Personal history of tobacco use, presenting hazards to health Essential hypertension Unspecified essential hypertension Peripheral arterial disease (HCC) Peripheral vascular disease, unspecified Superficial femoral artery occlusion (HCC) Atherosclerosis of nikolai arteries of the extremities, unspecified Mixed hyperlipidemia 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) Respiratory failure, unspecified chronicity, unspecified whether with hypoxia or hypercapnia (HCC) PAD (peripheral artery disease) (HCC) Peripheral vascular disease, unspecified [facility] Peripheral vascular disease (HCC)- Primary Peripheral vascular disease, unspecified [facility] Diagnosis Encounter for screening for cardiovascular disorders- Primary Screening for other and unspecified cardiovascular conditions [facility] Diagnosis Peripheral arterial disease (HCC)- Primary Peripheral vascular disease, unspecified Atherosclerosis of nikolai artery of left lower extremity with rest pain (HCC) Atherosclerosis of nikolai arteries of the extremities with rest pain PAD (peripheral artery disease) (HCC) Peripheral vascular disease, unspecified Superficial femoral artery occlusion (HCC) Atherosclerosis of nikolai arteries of the extremities, unspecified Abnormal ankle brachial index (MELISSA) 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 [facility] Diagnosis PAD (peripheral artery disease) (HCC)- Primary Peripheral vascular disease, unspecified 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 Peripheral arterial disease (HCC) Peripheral vascular disease, unspecified Mixed hyperlipidemia Symptom of leg swelling [facility] Outpatient Procedure (Routine) - Pending Review Specialty Diagnoses / Procedures Referred By Contac t Referred To Contact [facility] Diagnoses Peripheral arterial disease (HCC) Procedures PVR LEG [facility] NON-INVASIVE PHYSIOLOGIC STUDY EXTREMITY 3 LEVLS Eliza Mallory DO [address] [place] [address] [facility] [address] [address] Referral ID Status Reason Start Date Expiration Date Visits Requested Visits Authorized [id number] Pending Review Auto-Generat ed Referral 01/09/2022 01/09/2023 1 1 * Outpatient Procedure (Routine) - Pending Review Specialty Diagnoses / Procedures Referred By Contac t Referred To Contact [facility] Diagnoses Peripheral arterial disease (HCC) Procedures US ABD AORTA COMPLETE VAS LAB DUP-SCAN AORTA IVC ILIAC VASCL/BPGS COMPLETE Eliza Mallory DO [address] [place] [address] [facility] [address] [place] [address] Referral ID Status Reason Start Date Expiration Date Visits Requested Visits Authorized [id number] Pending Review Auto-Generat ed Referral 01/09/2022 01/09/2023 1 1 [facility] for referral (narrative)* Outpatient Procedure (Routine) - Authorized Specialty Diagnoses / Procedures Referred By Contac t Referred To Contact [facility] Diagnoses Chronic idiopathic constipation Altered bowel habits Procedures COLONOSCOPY DIAGNOSTIC COLONOSCOPY FLX DX W/COLLJ SPEC WHEN PFColton Del Cid MD [address] [place] [address] [facility] [address] [place] [address] Referral ID Status Reason Start Date Expiration Date Visits Requested Visits Authorized [id number] Authorized Auto-Generat ed Referral 04/26/2022 04/26/2023 1 1 * Diagnostic Procedure Only (Routine) - Closed Specialty Diagnoses / Procedures Referred By Contac t Referred To Contact XR IMAGING Diagnoses Chronic idiopathic constipation Altered bowel habits Procedures XR ABDOMEN 1V SUPINE RADIOLOGIC EXAM ABDOMEN 1 VIEW Colton Mendez MD [address] [place] [address] Xr Imaging Referral ID Status Reason Start Date Expiration Date V isits Requested Visits Authorized [id number] Closed Auto-Generate d Referral 04/26/2022 05/26/2023 1 1 [facility] for referral (narrative)* Diagnostic Procedure Only (Routine) - Closed Specialty Diagnoses / Procedures Referred By Contac t Referred To Contact XR IMAGING Diagnoses Chronic idiopathic constipation Altered bowel habits Procedures XR ABDOMEN 1V SUPINE RADIOLOGIC EXAM ABDOMEN 1 VIEW Colton Mendez MD [address] [place] [address] X[facility] Imaging Referral ID Status Reason Start Date Expiration Date V isits Requested Visits Authorized [id number] Closed Auto-Generate d Referral 04/26/2022 05/26/2023 1 1 [facility] for referral (narrative)* Diagnostic Procedure Only (Routine) - Closed Specialty Diagnoses / Procedures Referred By Naveen herrera Referred To Contact XR IMAGING Diagnoses Chronic idiopathic constipation Altered bowel habits Procedures XR ABDOMEN 1V SUPINE RADIOLOGIC EXAM ABDOMEN 1 VIEW Colton Mendez MD [address] [place] [address] Xr Imaging Referral ID Status Reason Start Date Expiration Date V isits Requested Visits Authorized [id number] Closed Auto-Generate d Referral 05/03/2022 05/26/2023 1 1 [facility] for referral (narrative)* Diagnostic Procedure Only (Routine) - Pending Review Specialty Diagnoses / Procedures Referred By Naveen herrera Referred To Contact XR IMAGING Diagnoses Altered bowel habits Procedures XR ABDOMEN 1V SUPINE RADIOLOGIC EXAM ABDOMEN 1 VIEW Dominique Reese APRN.CNS [address] [place] [address] Xr Imaging Referral ID Status Reason Start Date Expiration Date Visits Requested Visits Authorized [id number] Pending Review Auto-Generat ed Referral 05/14/2022 06/13/2023 1 1 [facility] for referral (narrative)* Outpatient Procedure (Routine) - Pending Review Specialty Diagnoses / Procedures Referred By Naveen herrera Referred [facility] Diagnoses Peripheral vascular disease (HCC) Procedures PVR ANK PRESS [facility] NON-INVAS PHYSIOLOGIC STD EXTREMITY ART 2 LEVEL Rene Swift MD [address] [place] [address] [facility] [address] [address] [place] [address] Referral ID Status Reason Start Date Expiration Date Visits Requested Visits Authorized [id number] Pending Review Auto-Generat ed Referral 09/06/2023 09/05/2024 1 1 [facility] for referral (narrative)* Outpatient Procedure (Routine) - Pending Review Specialty Diagnoses / Procedures Referred By Naveen herrera Referred To Contact [facility] Diagnoses Encounter for screening for cardiovascular disorders Procedures ECHO ECHO TTHRC R-T 2D W/WOM-MODE COMPL SPEC&COLR D Rene Swift MD [address] [place] [address] [address] Referral ID Status Reason Start Date Expiration Date Visits Requested Visits Authorized [id number] Pending Review Auto-Generat ed Referral 09/06/2023 09/05/2024 1 1 * Diagnostic Procedure Only (Routine) - Pending Review Specialty Diagnoses / Procedures Referred By Naveen herrera Referred To Contact [facility] Diagnoses Encounter for screening for cardiovascular disorders Procedures NM CARDIAC PERF STRESS/PHARM MYOCARDIAL SPECT MULTIPLE STUDIES Rene Swift MD [address] [place] [address] [facility] [address] [place] [address] Referral ID Status Reason Start Date Expiration Date Visits Requested Visits Authorized [id number] Pending Review Auto-Generat ed Referral 09/06/2023 10/05/2024 1 1 [facility] for referral (narrative)* Outpatient Procedure (Routine) - Pending Review Specialty Diagnoses / Procedures [facility] Referred To Contact [facility] Diagnoses Peripheral arterial disease (HCC) Procedures PVR LEG [facility] NON-INVASIVE PHYSIOLOGIC STUDY EXTREMITY 3 Rene Blas MD [address] [place] [address] [address] Referral ID Status Reason Start Date Expiration Date Visits Requested Visits Authorized [id number] Pending Review Auto-Generat ed Referral 06/13/2024 12/11/2024 1 1 [facility] for visit Narrative* Diagnostic Procedure Only (Routine) - Closed Specialty Diagnoses / Procedures Referred By Contac t Referred To Contact XR IMAGING Diagnoses Chronic idiopathic constipation Altered bowel habits Procedures XR ABDOMEN 1V SUPINE RADIOLOGIC EXAM ABDOMEN 1 VIEW Colton Mendez MD [address] [place] [address] Xr Imaging Referral ID Status Reason Start Date Expiration Date V isits Requested Visits Authorized [id number] Closed Auto-Generate d Referral 04/26/2022 05/26/2023 1 1 [facility] for visit Narrative* Diagnostic Procedure Only (Routine) - Closed Specialty Diagnoses / Procedures Referred By Naveen t Referred To Contact XR IMAGING Diagnoses Chronic idiopathic constipation Altered bowel habits Procedures XR ABDOMEN 1V SUPINE RADIOLOGIC EXAM ABDOMEN 1 VIEW Colton Mendez MD [address] [facility] [place] [address] Xr Imaging Referral ID Status Reason Start Date Expiration Date V isits Requested Visits Authorized [id number] Closed Auto-Generate d Referral 05/03/2022 05/26/2023 1 1 [facility] Advance Directives No Advanced Directives Records FoundDocuments on File Type Date Recorded 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 Advance Directive(s) 08/05/2018 11:34 AM Advance Directive(s) 12/08/2015 12:19 PM Advance Directive(s) 12/05/2015 11:47 AM Advance Directive(s) 12/05/2015 12:35 PM Advance Directive(s) 11/14/2015 10:54 AM Documents on File Type Date Recorded 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 Advance Directive(s) 08/05/2018 11:34 AM Advance Directive(s) 12/08/2015 12:19 PM Advance Directive(s) 12/05/2015 11:47 AM Advance Directive(s) 12/05/2015 12:35 PM Advance Directive(s) 11/14/2015 10:54 AM Documents on File Type Date Recorded 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 Advance Directive(s) 12/08/2015 12:19 PM Documents on File Type Date Recorded 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 Advance Directive(s) 12/08/2015 12:19 PM Documents on File Type Date Recorded 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 Advance Directive(s) 11/22/2023 7:29 AM Advance Directive(s) 12/08/2015 12:19 PM Documents on File Type Date Recorded 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 Advance Directive(s) 11/22/2023 7:29 AM Advance Directive(s) 12/08/2015 12:19 PM Reason for Referral Specialty Diagnoses / Procedures Referred By Contac t Referred To Contact Nephrology Diagnoses Stage 3a chronic kidney disease (HCC) Procedures CONSULT TO NEPHROLOGY OFFICE/OUTPATIENT [facility] MDM 60-74 MINUTES Timothy, Samantha, CYLINDER PRESS OPERATOR HELPER.BEHAVIORAL GENETICIST [address] [place] [address] Referral ID Status Reason Start Date Expiration Date Visits Requested Visits Authorized [id number] Pending Review PCP Requested Referral 02/07/2022 02/07/2023 1 1 Specialty Diagnoses / Procedures Referred By Contac t Referred To Contact General Surgery Diagnoses Chronic idiopathic constipation Altered bowel habits Procedures CONSULT TO GENERAL SURGERY OFFICE[facility]-74 MINUTES Dominique Reese, CYLINDER PRESS OPERATOR HELPER.DRAMA DIRECTOR [address] [place] [address] Referral ID Status Reason Start Date Expiration Date Visits Requested Visits Authorized [id number] Pending Review PCP Requested Referral 04/12/2022 04/12/2023 1 1 Specialty Diagnoses / Procedures Referred By Contac t Referred To Contact Gastroenterology Diagnoses Chronic idiopathic constipation Altered bowel habits Procedures CONSULT TO GASTROENTEROLOGY OFFICE/[facility]IENT [facility] 60-74 MINUTES Dominique Reese, CYLINDER PRESS OPERATOR HELPER.DRAMA DIRECTOR [address] [place] [address] Referral ID Status Reason Start Date Expiration Date Visits Requested Visits Authorized [id number] Pending Review PCP Requested Referral 04/12/2022 04/12/2023 1 1 Specialty Diagnoses / Procedures Referred By Contac t Referred To Contact CT IMAGING Diagnoses Peripheral vascular disease (HCC) Procedures CTA ABD/PEL LOWER EXTREM W IVCON CTA ABDL AORTA&BI ILIOFEM W/CONTRAST&POSTP Eliza Mallory, DO [address] [place] [address] [place] [address] Referral ID Status Reason Start Date Expiration Date Visits Requested Visits Authorized [id number] Pending Review Auto-Generat ed Referral 05/21/2023 06/12/2024 [...] or prosecute any alcohol or drug abuse patient.[facility] event this information is protected by the Federal Confidentiality of Alcohol and Drug Abuse Patient Records regulations: The Federal rules restrict any use of the information to criminally investigate or prosecute any alcohol or drug abuse patient.[facility] HospitalIn the event this information is protected by the Federal Confidentiality of Alcohol and Drug Abuse Patient Records regulations: The Federal rules restrict any use of the information to criminally investigate or prosecute any alcohol or drug abuse patient.[facility] HospitalIn the event this information is protected by the Federal Confidentiality of Alcohol and Drug Abuse Patient Records regulations: The Federal rules restrict any use of the information to criminally investigate or prosecute any alcohol or drug abuse patient.[facility] HospitalIn the event this information is protected by the Federal Confidentiality of Alcohol and Drug Abuse Patient Records regulations: The Federal rules restrict any use of the information to criminally investigate or prosecute any alcohol or drug abuse patient.[facility] HospitalIn the event this information is protected by the Federal Confidentiality of Alcohol and Drug Abuse Patient Records regulations: The Federal rules restrict any use of the information to criminally investigate or prosecute any alcohol or drug abuse patient.[facility] HospitalIn the event this information is protected by the Federal Confidentiality of Alcohol and Drug Abuse Patient Records regulations: The Federal rules restrict any use of the information to criminally investigate or prosecute any alcohol or drug abuse patient.[facility] HospitalIn the event this information is protected by the Federal Confidentiality of Alcohol and Drug Abuse Patient Records regulations: The Federal rules restrict any use of the information to criminally investigate or prosecute any alcohol or drug abuse patient.[facility] HospitalIn the event this information is protected by the Federal Confidentiality of Alcohol and Drug Abuse Patient Records regulations: The Federal rules restrict any use of the information to criminally investigate or prosecute any alcohol or drug abuse patient.[facility] HospitalIn the event this information is protected by the Federal Confidentiality of Alcohol and Drug Abuse Patient Records regulations: The Federal rules restrict any use of the information to criminally investigate or prosecute any alcohol or drug abuse patient.[facility] HospitalIn the event this information is protected by the Federal Confidentiality of Alcohol and Drug Abuse Patient Records regulations: The Federal rules restrict any use of the information to criminally investigate or prosecute any alcohol or drug abuse patient.[facility] HospitalIn the event this information is protected by the Federal Confidentiality of Alcohol and Drug Abuse Patient Records regulations: The Federal rules restrict any use of the information to criminally investigate or prosecute any alcohol or drug abuse patient.[facility] HospitalIn the event this information is protected by the Federal Confidentiality of Alcohol and Drug Abuse Patient Records regulations: The Federal rules restrict any use of the information to criminally investigate or prosecute any alcohol or drug abuse patient.[facility] HospitalIn the event this information is protected by the Federal Confidentiality of Alcohol and Drug Abuse Patient Records regulations: The Federal rules restrict any use of the information to criminally investigate or prosecute any alcohol or drug abuse patient.[facility] HospitalIn the event this information is protected by the Federal Confidentiality of Alcohol and Drug Abuse Patient Records regulations: The Federal rules restrict any use of the information to criminally investigate or prosecute any alcohol or drug abuse patient.[facility] HospitalIn the event this information is protected by the Federal Confidentiality of Alcohol and Drug Abuse Patient Records regulations: The Federal rules restrict any use of the information to criminally investigate or prosecute any alcohol or drug abuse patient.[facility] HospitalIn the event this information is protected by the Federal Confidentiality of Alcohol and Drug Abuse Patient Records regulations: The Federal rules restrict any use of the information to criminally investigate or prosecute any alcohol or drug abuse patient.[facility] HospitalIn the event this information is protected by the Federal Confidentiality of Alcohol and Drug Abuse Patient Records regulations: The Federal rules restrict any use of the information to criminally investigate or prosecute any alcohol or drug abuse patient.[facility] HospitalIn the event this information is protected by the Federal Confidentiality of Alcohol and Drug Abuse Patient Records regulations: The Federal rules restrict any use of the information to criminally investigate or prosecute any alcohol or drug abuse patient.[facility] HospitalIn the event this information is protected by the Federal Confidentiality of Alcohol and Drug Abuse Patient Records regulations: The Federal rules restrict any use of the information to criminally investigate or prosecute any alcohol or drug abuse patient.[facility] HospitalIn the event this information is protected by the Federal Confidentiality of Alcohol and Drug Abuse Patient Records regulations: The Federal rules restrict any use of the information to criminally investigate or prosecute any alcohol or drug abuse patient.[facility] HospitalIn the event this information is protected by the Federal Confidentiality of Alcohol and Drug Abuse Patient Records regulations: The Federal rules restrict any use of the information to criminally investigate or prosecute any alcohol or drug abuse patient.[facility] HospitalIn the event this information is protected by the Federal Confidentiality of Alcohol and Drug Abuse Patient Records regulations: The Federal rules restrict any use of the information to criminally investigate or prosecute any alcohol or drug abuse patient.[facility] HospitalIn the event this information is protected by the Federal Confidentiality of Alcohol and Drug Abuse Patient Records regulations: The Federal rules restrict any use of the information to criminally investigate or prosecute any alcohol or drug abuse patient.[facility] HospitalIn the event this information is protected by the Federal Confidentiality of Alcohol and Drug Abuse Patient Records regulations: The Federal rules restrict any use of the information to criminally investigate or prosecute any alcohol or drug abuse patient.[facility] HospitalIn the event this information is protected by the Federal Confidentiality of Alcohol and Drug Abuse Patient Records regulations: The Federal rules restrict any use of the information to criminally investigate or prosecute any alcohol or drug abuse patient.[facility] Reason for Visit (unrecogniz ed section and content) Reason Comments Established Patient Reason Comments Established Patient Nail Care Reason Comments F/U 6 months Reason Comments Hospital F/U Reason Comments Hospital F/U constipation Reason Comments Consult Constipation Specialty Diagnoses / Procedures Referred By Naveen herrera Referred To Contact General Surgery Diagnoses Chronic idiopathic constipation Altered bowel habits Procedures CONSULT TO GENERAL SURGERY OFFICE/OUTPATIENT [facility] MDM 60-74 MINUTES Dominique Reese, [employer]ESS OPERATOR HELPER.DRAMA DIRECTOR [address] [place] [address] Referral ID Status Reason Start Date Expiration Date Visits Requested Visits Authorized [id number] Pending Review PCP Requested Referral 04/12/2022 04/12/2023 1 1 Reason Comments Follow Up Reason Comments Transition Of Care [facility] for shortnes s of breath [...] Care Teams (unrecognized sec tion and content) Broadcast Checker Relationship Specialty Start Date End Date Emeka Horn MD [address] [place] [address] PCP - General 07/31/02 Chito Rivero [address] [place] [address] Consulting Pulmonary Disease 06/30/18 Broadcast Checker Relationship Specialty Start Date End Date Emeka Horn MD [address] [place] [address] PCP - General 07/31/02 Chito Rivero [address] [place] [address] Consulting Pulmonary Disease 06/30/18 Broadcast Checker Relationship Specialty Start Date End Date Emeka Horn MD [address] [place] [address] PCP - General 07/31/02 Chito Rivero [address] [place] [address] Consulting Pulmonary Disease 06/30/18 Broadcast Checker Relationship Specialty Start Date End Date Emeka Horn MD [address] [facility] [address] PCP - General 07/31/02 Chito Rivero [address] [place] [address] Consulting Pulmonary Disease 06/30/18 Broadcast Checker Relationship Specialty Start Date End Date Emeka Horn MD [address] [place] [address] PCP - General 07/31/02 Chito Rivero [address] [place] [address] Consulting Pulmonary Disease 06/30/18 Broadcast Checker Relationship Specialty Start Date End Date Emeka Horn MD [address] [facility] [place] [address] PCP - General 07/31/02 Chito Rivero [address] [place] [address] Consulting Pulmonary Disease 06/30/18 Broadcast Checker Relationship Specialty Start Date End Date Emeka Horn MD [address] [facility] [place] [address] PCP - General 07/31/02 Chito Rivero [address] [place] [address] Consulting Pulmonary Disease 06/30/18 Broadcast Checker Relationship Specialty Start Date End Date Emeka Horn MD [address] [place] [address] PCP - General 07/31/02 Chito Rivero [address] [place] [address] Consulting Pulmonary Disease 06/30/18 Broadcast Checker Relationship Specialty Start Date End Date Emeka Horn MD [address] [facility] [address] PCP - General 07/31/02 Chito Rivero [address] [place] [address] Consulting Pulmonary Disease 06/30/18 Broadcast Checker Relationship Specialty Start Date End Date Emeka Horn MD [address] [place] [address] PCP - General 07/31/02 Chito Rivero [address] [place] [address] Consulting Pulmonary Disease 06/30/18 Broadcast Checker Relationship Specialty Start Date End Date Chito Rivero [address] [place] [address] Consulting Pulmonary Disease 06/30/18 Broadcast Checker Relationship Specialty Start Date End Date Chito Rivero [address] [place] [address] Consulting Pulmonary Disease 06/30/18 Broadcast Checker Relationship Specialty Start Date End Date Chito Rivero [address] [place] [address] Consulting Pulmonary Disease 06/30/18 Broadcast Checker Relationship Specialty Start Date End Date Chiot Rivero [address] [place] [address] Consulting Pulmonary Disease 06/30/18 Broadcast Checker Relationship Specialty Start Date End Date Chito Rivero [address] [place] [address] Consulting Pulmonary Disease 06/30/18 Broadcast Checker Relationship Specialty Start Date End Date Chito Rivero [address] [place] [address] Consulting Pulmonary Disease 06/30/18 Broadcast Checker Relationship Specialty Start Date End Date Riaz Whitman MD [address] [place] [address] PCP - General Internal Medicine 05/22/23 Chito Rivero MD [address] [place] [address] Consulting Pulmonary Disease 06/30/18 Broadcast Checker Relationship Specialty Start Date End Date Riaz Whitman MD [address] [place] [address] PCP - General Internal Medicine 05/22/23 Chito Rivero MD [address] [place] [address] Consulting Pulmonary Disease 06/30/18 Broadcast Checker Relationship Specialty Start Date End Date Riaz Whitman MD [address] [place] [address] PCP - General Internal Medicine 05/22/23 Chito Rivero MD [address] [place] [address] Consulting Pulmonary Disease 06/30/18 Broadcast Checker Relationship Specialty Start Date End Date Riaz Whitman MD [address] [place] [address] PCP - General Internal Medicine 05/22/23 Chito Rivero MD [address] [place] [address] Consulting Pulmonary Disease 06/30/18 Broadcast Checker Relationship Specialty Start Date End Date Riaz Whitman MD [address] [place] [address] PCP - General Internal Medicine 05/22/23 Chito Rivero MD [address] [place] [address] Consulting Pulmonary Disease 06/30/18 Broadcast Checker Relationship Specialty Start Date End Date Riaz Whitman MD [address] [place] [address] PCP - General Internal Medicine 05/22/23 Chito Rivero MD [address] [place] [address] Consulting Pulmonary Disease 06/30/18 Broadcast Checker Relationship Specialty Start Date End Date Riaz Whitman MD [address] [place] [address] PCP - General Internal Medicine 05/22/23 Chito Rivero MD [address] [place] [address] Consulting Pulmonary Disease 06/30/18 Broadcast Checker Relationship Specialty Start Date End Date Riaz Whitman MD [address] [place] [address] PCP - General Internal Medicine 05/22/23 Chito Rivero MD [address] [place] [address] Consulting Pulmonary Disease 06/30/18 (unrecognized sect ion and content) No Status Records FoundNo Status Records FoundNo Status Records Found INFORMATION SOURCE (unrecogn ized section and content) DATE CREATED AUTHOR AUTHOR'S ORGANIZ ATION 11/26/2023 [facility] DATE CREATED AUTHOR AUTHOR'S ORGANIZ ATION 12/13/2023 [facility] FOR RECORDS PERTAINING TO PATIENTS WHO ARE [...] BE BASED ON THE PRIMARY CLINICAL RECORDS. [employer] provides no warranty or guarantee of the accuracy or completeness of information in this document.
== END | disposition home or self-care (01) ==
LOC: BIMLAB 13:41
PROVIDERS: PCP Internal Medicine; Visit Provider Nurse Practitioner
DX: I71.40 Abdominal aortic aneurysm, without rupture, unspecified (principal)
CPT/HCPCS: 36415; 85025

== ENCOUNTER → 2023-12-21 | Outpatient (CLI) | payer MEDICARE, SELFPAY ==
--- OUTSIDE RECORDS SUMMARY | 2023-12-21 09:53 | XMS RPT_ITS | CCD ---
Author Name Unknown Address [address] [place] [address] Organization [facility] Care Team Providers Care Police Service Technician Name Role Phone Emeka Horn MD Primary Care Provider [phone] Chito Rivero Unavailable [phone] Chito Rivero Unavailable Chito Rivero MD Unavailable Riaz Whitman MD Primary Care Provider MELI, [...] cilostazol; Translations: [CILOSTAZOL] Drug Allergy 2 Itching [facility] Work Phone: (20 sources) Felodipine; Translations: [FELODIPINE] Drug Allergy 5 Rash [facility] Work Phone: (20 sources) levoFLOXacin; Translations: [LEVOFLOXACIN] Drug Allergy 5 Hives [facility] (20 sources) Sulfonamides (Antibiotic); Translations: [SULFA (SULFONAMIDE ANTIBIOTICS)] Propensity to adverse reactions 5 Itching [facility] Work Phone: Medications Current Medications Medication [...] Coronary atherosclerosis; Translations: [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] Onset: 06-13-2005 [...] 66 mm[Hg] Rene Swift MD Work Phone: [facility] 12-12-2023 09:14-0500 Heart rate 65 /min Rene Swift MD Work Phone: [facility] 12-12-2023 09:14-0500 SaO2% (BldA) [Mass fraction] 99 % Rene Switf MD Work Phone: [facility] 12-12-2023 09:14-0500 Systolic blood pressure 135 mm[Hg] Rene Swift MD Work Phone: [facility] 11-25-2023 11:15-0500 Body height 172.7 cm Rene Swift MD Work Phone: [facility] 11-25-2023 11:15-0500 Body weight 88.45 kg Rene Swift MD Work Phone: [facility] 11-25-2023 11:15-0500 Diastolic blood pressure 66 mm[Hg] Rene Swift MD Work Phone: [facility] 11-25-2023 11:15-0500 Heart rate 62 /min Rene Swift MD Work Phone: [facility] 11-25-2023 11:15-0500 Respiratory rate 16 /min Rene Swift MD Work Phone: [facility] 11-25-2023 11:15-0500 Systolic blood pressure 124 mm[Hg] Rene Swift MD Work Phone: [facility] 08-21-2023 13:15-0500 Diastolic blood pressure 52 mm[Hg] Rene Swift MD Work Phone: [facility] 08-21-2023 13:15-0500 Heart rate 46 /min Rene Swift MD Work Phone: [facility] 08-21-2023 13:15-0500 SaO2% (BldA) [Mass fraction] 97 % Rene Swift MD Work Phone: [facility] 08-21-2023 13:15-0500 Systolic blood pressure 124 mm[Hg] Rene Swift MD Work Phone: [facility] 02-05-2023 10:02-0400 Diastolic blood pressure 68 mm[Hg] Eliza Mallory DO Work Phone: [facility] 02-05-2023 10:02-0400 Heart rate 63 /min Eilza Mallory DO Work Phone: [facility] 02-05-2023 10:02-0400 SaO2% (BldA) [Mass fraction] 100 % Eliza Mallory DO Work Phone: [facility] 02-05-2023 10:02-0400 Systolic blood pressure 134 mm[Hg] Eliza Mallory DO Work Phone: [facility] 05-25-2022 16:25-0400 Diastolic blood pressure 67 mm[Hg] Emeka Horn MD Work Phone: [facility] 05-25-2022 16:25-0400 Heart rate 60 /min Emeka Horn MD Work Phone: [facility] 05-25-2022 16:25-0400 Systolic blood pressure 171 mm[Hg] Emeka Horn MD Work Phone: [facility] 05-25-2022 16:05-0400 Body temperature 97.2 [degF] Emeka Horn MD Work Phone: [facility] 05-25-2022 16:05-0400 Body weight 87.54 kg Emeka Horn MD Work Phone: [facility] 05-25-2022 16:05-0400 Respiratory rate 16 /min Emeka Horn MD Work Phone: [facility] 05-25-2022 16:05-0400 SaO2% (BldA) [Mass fraction] 95 % Emeka Horn MD Work Phone: [facility] 05-14-2022 10:51-0400 Body weight 89.36 kg Dominique Reese APRN.QUALITATIVE FIELD PROJECT MANAGER Work Phone: [facility] 05-14-2022 10:51-0400 Diastolic blood pressure 52 mm[Hg] Dominique Reese APRN.QUALITATIVE FIELD PROJECT MANAGER Work Phone: [facility] 05-14-2022 10:51-0400 Heart rate 63 /min Dominique Reese TRACTOR CRANE OPERATOR.QUALITATIVE FIELD PROJECT MANAGER Work Phone: [facility] 05-14-2022 10:51-0400 Respiratory rate 16 /min Dominique Reese TRACTOR CRANE OPERATOR.QUALITATIVE FIELD PROJECT MANAGER Work Phone: [facility] 05-14-2022 10:51-0400 SaO2% (BldA) [Mass fraction] 96 % Dominique Reese TRACTOR CRANE OPERATOR.QUALITATIVE FIELD PROJECT MANAGER Work Phone: [facility] 05-14-2022 10:51-0400 Systolic blood pressure 138 mm[Hg] Dominique Reese TRACTOR CRANE OPERATOR.QUALITATIVE FIELD PROJECT MANAGER Work Phone: [facility] 04-26-2022 13:02-0400 Body height 177.8 cm Colton Mendez MD Work Phone: [facility] 04-26-2022 13:02-0400 Body temperature 97.2 [degF] Colton Mendez MD Work Phone: [facility] 04-26-2022 13:02-0400 Body weight 88 kg Colton Mendez MD Work Phone: [facility] 04-26-2022 13:02-0400 Diastolic blood pressure 60 mm[Hg] Colton Mendez MD Work Phone: [facility] 04-26-2022 13:02-0400 Heart rate 78 /min Colton Mendez MD Work Phone: [facility] 04-26-2022 13:02-0400 Respiratory rate 20 /min Colton Mendez MD Work Phone: [facility] 04-26-2022 13:02-0400 SaO2% (BldA) [Mass fraction] 95 % Colton Mendez MD Work Phone: [facility] 04-26-2022 13:02-0400 Systolic blood pressure 124 mm[Hg] Colton Mendez MD Work Phone: [facility] 04-12-2022 10:33-0400 Body weight 87.54 kg Dominqiue Reese TRACTOR CRANE OPERATOR.QUALITATIVE FIELD PROJECT MANAGER Work Phone: [facility] 04-12-2022 10:33-0400 Diastolic blood pressure 58 mm[Hg] Dominique Reese TRACTOR CRANE OPERATOR.QUALITATIVE FIELD PROJECT MANAGER Work Phone: [facility] 04-12-2022 10:33-0400 Heart rate 60 /min Dominique Reese TRACTOR CRANE OPERATOR.QUALITATIVE FIELD PROJECT MANAGER Work Phone: [facility] 04-12-2022 10:33-0400 Respiratory rate 16 /min Dominique Reese TRACTOR CRANE OPERATOR.QUALITATIVE FIELD PROJECT MANAGER Work Phone: [facility] 04-12-2022 10:33-0400 SaO2% (BldA) [Mass fraction] 96 % Dominique Reese TRACTOR CRANE OPERATOR.QUALITATIVE FIELD PROJECT MANAGER Work Phone: [facility] 04-12-2022 10:33-0400 Systolic blood pressure 122 mm[Hg] Dominique Reese TRACTOR CRANE OPERATOR.QUALITATIVE FIELD PROJECT MANAGER Work Phone: [facility] 03-28-2022 13:19-0400 Body temperature 97 [degF] Emeka Horn MD Work Phone: [facility] 03-28-2022 13:19-0400 Body weight 88.18 kg Emeka Horn MD Work Phone: [facility] 03-28-2022 13:19-0400 Diastolic blood pressure 58 mm[Hg] Emeka Horn MD Work Phone: [facility] 03-28-2022 13:19-0400 Heart rate 60 /min Emeka Horn MD Work Phone: [facility] 03-28-2022 13:19-0400 Respiratory rate 18 /min Emeka Horn MD Work Phone: [facility] 03-28-2022 13:19-0400 Systolic blood pressure 136 mm[Hg] Emeka Horn MD Work Phone: [facility] 02-07-2022 10:00-0400 Diastolic blood pressure 64 mm[Hg] Samantha Aguirre TRACTOR CRANE OPERATOR.CEMENTING MACHINE OPERATOR Work Phone: [facility] 02-07-2022 10:00-0400 Systolic blood pressure 132 mm[Hg] Samantha Older TRACTOR CRANE OPERATOR.CEMENTING MACHINE OPERATOR Work Phone: [facility] 02-07-2022 09:39-0400 Body weight 93.44 kg Samantha Older TRACTOR CRANE OPERATOR.CEMENTING MACHINE OPERATOR Work Phone: [facility] 02-07-2022 09:39-0400 Heart rate 60 /min Samantha Older TRACTOR CRANE OPERATOR.CEMENTING MACHINE OPERATOR Work Phone: [facility] 02-07-2022 09:39-0400 Respiratory rate 22 /min Samantha Older TRACTOR CRANE OPERATOR.CEMENTING MACHINE OPERATOR Work Phone: [facility] 02-07-2022 09:39-0400 SaO2% (BldA) [Mass fraction] 96 % Samantha Older TRACTOR CRANE OPERATOR.CEMENTING MACHINE OPERATOR Work Phone: [facility] 01-09-2022 09:11-0400 Diastolic blood pressure 72 mm[Hg] Eliza Mallory DO Work Phone: [facility] 01-09-2022 09:11-0400 Systolic blood pressure 160 mm[Hg] Eliza Mallory DO Work Phone: [facility] 01-09-2022 09:08-0400 Body height 170.2 cm Eliza Mallory DO Work Phone: [facility] 01-09-2022 09:08-0400 Body weight 93.89 kg Eliza Mallory DO Work Phone: [facility] 01-09-2022 09:08-0400 Heart rate 62 /min Eliza Mallory DO Work Phone: [facility] 01-09-2022 09:08-0400 SaO2% (BldA) [Mass fraction] 97 % Eliza Mallory DO Work Phone: [facility] Encounters Encounter Date Encounter Type Care Provider Facility Start: 12-12-2023 End: 12-12-2023 ambulatory RIAZ G MELI Facility:[facility] Start: 12-12-2023 End: 12-12-2023 Patient encounter procedure Rene Swift MD Work Phone: Vascular Surgery Procedures Date Procedure Procedure Detail Performing Clinician Start: 11-05-2023 Antibody screen RENE TO Plan of Treatment Date Care Activity Detail Author Start: 11-12-2024 Hepatitis B surface antibody level LDL Cholesterol [facility] Start: 06-13-2024 End: 12-11-2024 US Lower extremity artery - bilateral PVR [facility] V[facility] Lab Routine Peripheral arterial disease (HCC) Expected: 06/13/2024, Expires: 12/11/2024 [facility] Work Phone: Immunizations Immunization Date Immunization Notes Care Provider Fa ekta 06-26-2023 influenza (HD-IIV4) vaccine, age 65+ yr, high dose, quadrivalent, PF (FLUZONE HIGH-DOSE) Rene Swift MD Work Phone: [facility] 07-24-2022 influenza (HD-IIV4) vaccine, age 65+ yr, high dose, quadrivalent, PF (FLUZONE HIGH-DOSE) Rene Swift MD Work Phone: [facility] 08-07-2021 COVID-19 vaccine, ag e 12+ yr (PFIZER-BIONTECH - PURPLE TOP) Eliza Mallory DO Work Phone: [facility] Work Phone: 06-28-2021 influenza, high dose seasonal, preservative-free Eliza Mallory DO Work Phone: [facility] Work Phone: 11-23-2020 COVID-19 vaccine, ag e 12+ yr (PFIZER-BIONTECH - PURPLE TOP) Eliza Mallory DO Work Phone: [facility] Work Phone: 11-02-2020 COVID-19 vaccine, ag e 12+ yr (PFIZER-BIONTECH - PURPLE TOP) Eliza Mallory DO Work Phone: [facility] 10-10-2020 zoster vaccine recombinant Eliza Mallory DO Work Phone: [facility] Work Phone: 08-02-2020 zoster vaccine recombinant Eliza Mallory DO Work Phone: [facility] Work Phone: 07-25-2020 influenza, high-dose , quadrivalent vaccine (FLUZONE HIGH DOSE QUADRIVALENT) Eliza Mallory DO Work Phone: [facility] Work Phone: 07-25-2020 pneumococcal polysaccharide vaccine, 23 valent Eliza Mallory DO Work Phone: [facility] Work Phone: 06-23-2019 influenza, high dose seasonal, preservative-free Eliza Mallory DO Work Phone: [facility] Work Phone: 07-18-2018 influenza, high dose seasonal, preservative-free Eliza Mallory DO Work Phone: [facility] 07-06-2017 influenza, high dose seasonal, preservative-free Eliza Mallory DO Work Phone: [facility] 08-13-2016 influenza, injectabl e, quadrivalent, contains preservative Eliza Mallory DO Work Phone: [facility] Work Phone: 08-13-2016 influenza, injectabl e, quadrivalent, preservative free Rene Swift MD Work Phone: [facility] 10-11-2015 influenza, high dose seasonal, preservative-free Eliza Mallory DO Work Phone: [facility] 05-11-2015 pneumococcal conjuga te vaccine, 13 valent Eliza aMllory DO Work Phone: [facility] 07-23-2013 influenza virus vacc ine, whole virus Eliza Mallory DO Work Phone: [facility] Work Phone: 07-03-2012 influenza virus vacc ine, unspecified formulation Eliza Mallory DO Work Phone: [facility] Work Phone: 06-25-2011 influenza virus vacc ine, unspecified formulation Eliza Mallory DO Work Phone: [facility] Work Phone: 08-04-2010 influenza virus vacc ine, unspecified formulation Eliza Mallory DO Work Phone: [facility] Work Phone: 10-05-2009 novel influenza-H1N1 -09, preservative-free, injectable Eliza Mallory DO Work Phone: [facility] Work Phone: 07-19-2009 influenza virus vacc ine, unspecified formulation Eliza Mallory DO Work Phone: [facility] 06-30-2008 pneumococcal polysaccharide vaccine, 23 valent Eliza Mallory DO Work Phone: [facility] Work Phone: 08-06-2007 influenza virus vacc ine, unspecified formulation Eliza Mallory DO Work Phone: [facility] Work Phone: 06-12-2007 tetanus and diphther ia toxoids, adsorbed, preservative free, for adult use (2 Lf of tetanus toxoid and 2 Lf of diphtheria toxoid) Eliza Mallory DO Work Phone: [facility] Work Phone: 08-12-2003 pneumococcal polysaccharide vaccine, 23 valent Eliza Mallory DO Work Phone: [facility] Work Phone: Payers Date Payer Category Payer Medicare [employer] [place] [place] [id number] 2007-Present [phone] [address] [place] [id number] [facility] [id number] 2007 Medicare [id number] 2007 Medicare [id number] Social History Date Type Detail Facility Start: 05-14-2022 Tobacco smoking status NHIS Ex-smoker [facility] End: 02-05-2008 History of tobacco use Current smoker [facility] End: 02-05-2008 History of tobacco use Cigarette Smoker [facility] End: 02-05-2008 History of tobacco use Cigar Smoker [facility] Start: 10-12-2021 End: 12-12-2023 Alcohol intake Current drinker of alcohol (finding) [facility] Start: 08-31-2020 End: 08-10-2021 History SDOH Alcohol Frequency 2 [facility] Start: 08-31-2020 End: 12-21-2020 History SDOH Alcohol Std Drinks 1 [facility] Start: 02-12-2011 History SDOH Alcohol Comment Rare [facility] Start: 02-16-2020 End: 07-19-2020 History SDOH Social Connections Meetings 3 [facility] Start: 02-16-2020 End: 07-19-2020 History SDOH Physical Activity DPW 4 [facility] Start: 09-30-2019 Education 12 [facility] Start: 1935 Sex Assigned At Male [facility] Start: 12-04-2021 End: 09-06-2022 Exposure to SARS-CoV-2 (event) Not sure [facility] Start: 05-14-2022 End: 03-29-2023 Cigarettes smoked current (pack per day) - Reported 0.5 [facility] Start: 05-14-2022 Tobacco use and exposure Smokeless tobacco non-user [facility] Work Phone: Start: 02-16-2020 End: 03-29-2023 Social connection and isolation panel [facility] Do you belong to any clubs or organizations such as pentecostal groups, unions, fraternal or athletic groups, or school groups? Yes [facility] Are you now , , , , never or living with a partner? [facility] How often to you hav e a drink containing alcohol? Monthly or less [facility] How many standard dr inks containing alcohol do you have on a typical day? 1 or 2 [facility] How often do you hav e 6 or more drinks on 1 occasion? Never [facility] How hard is it for y ou to pay for the very basics like food, housing, medical care, and heating Not very hard [facility] Adult Depression Screening Assessment 0 [facility] Do you feel stress - tense, restless, nervous, or anxious, or unable to sleep at night because your mind is troubled all the time - these days [OSQ] To some extent [facility] (I/We) worried wheth er (my/our) food would run out before (I/we) got money to buy more. Never true [facility] In the past 12 month s, was there a time when you were not able to pay the mortgage or rent on time? No [facility] Start: 07-02-2019 Gender identity Identifies as male gender (finding) [facility] Start: 02-17-2020 Sexual orientation Heterosexual (finding) [facility] Work Phone: Medical Equipment Procedure Code Equipment Code Equipment Original Text Equipment Identifier Dates Patch Vascu-Guar d Taper Bovine Pericardial 8x.8cm [facility] [place] - [id number] Start: 08-05-2018 Clinical Notes 05-11-2015 to 12-12-2023 Rene Swift MD - 12/12/2023 9:49 AM Rene House MD - 11/25/2023 5:39 PM ESTTelephone Encounter - Jessica Bentley LPN - 11/22/2023 10:02 AM Rene House MD - 08/21/2023 1:20 PM EST Note Date & Type Note Facility 12-12-2023 Note HNO ID: [id number] Author: RENE SWIFT MD Service: ? Author Type: Physician Type: Progress Notes Filed: 12/12/2023 13:45 Note Text: Surgery/Procedure Date: 11/12/2023 Surgeon(s)/Proceduralist(s) and Stave Log Cut Off Saw Operator(s): Surgeon(s) and Role: * Rene Swift MD - Primary * Remberto Nunn MD - Resident - Assisting Procedure(s): Left ileofemoral endarterectomy and bovine patch profundaplasty Left lower extremity angiogram Intraoperative duplex ultrasound of patch repair [facility] VISIT Woody Hernandes [id number] HPI: Mr. Hernandes is a 88 year [...] 10/18/2023 Adjustment disord (more content not included)... [facility] 12-12-2023 History of Presen t illness Narrative Images from the original note were not included. Surgery/Procedure Date: 11/12/2023 Surgeon(s)/Proceduralist(s) and Stave Log Cut Off Saw Operator(s): Surgeon(s) and Role: * Rene Swift MD - Primary * Remberto Nunn MD - Resident - Assisting Procedure(s): Left ileofemoral endarterectomy and bovine patch profundaplasty Left lower extremity angiogram Intraoperative duplex ultrasound of patch repair [facility] VISIT Woody Hernandes [id number] HPI: Mr. 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 Hilliard. Coronary atherosclerosis of unspecified type of vessel, shoal[place] or graft 06/13/2005 Diverticulitis of colon (without [...] MAJOR SURGERY 1998 With inguinal hernia repair [facility] INCL FLUOR GDNCE DX W/CELL WASHG SPX [...] 12/12/2023 With PVRs documented in this encounter [facility] 11-25-2023 Note HNO ID: [id number] Author: RENE SWIFT MD Service: ? Author Type: Physician Type: Progress Notes Filed: 11/25/2023 17:50 Note Text: Surgery/Procedure Date: 11/12/2023 Surgeon(s)/Proceduralist(s) and Stave Log Cut Off Saw Operator(s): Surgeon(s) and Role: * Rene Swift MD - Primary * Remberto Nunn MD - Resident - Assisting Procedure(s): Left ileofemoral endarterectomy and bovine patch profundaplasty Left lower extremity angiogram Intraoperative duplex ultrasound of patch repair [facility] VISIT Woody Hernandes [phone] HPI: Mr. Hernandes is a 88 year [...] disorder with depres (more content not included)... [facility] 11-25-2023 History of Presen t illness Narrative Images from the original note were not included. Surgery/Procedure Date: 11/12/2023 Surgeon(s)/Proceduralist(s) and Stave Log Cut Off Saw Operator(s): Surgeon(s) and Role: * Rene Swift MD - Primary * Remberto Nunn MD - Resident - Assisting Procedure(s): Left ileofemoral endarterectomy and bovine patch profundaplasty Left lower extremity angiogram Intraoperative duplex ultrasound of patch repair [facility] VISIT Woody Hernandes [id number] HPI: Mr. 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 Hilliard. Coronary atherosclerosis of unspecified type of vessel, shoal[place] or graft 06/13/2005 Diverticulitis of colon (without [...] MAJOR SURGERY 1998 With inguinal hernia repair [facility] INCL FLUOR GDNCE DX W/CELL WASHG SPX [...] Surgery Staff 11/25/2023 documented in this encounter [facility] 11-22-2023 Miscellaneous Notes Patient notified per [...] further as well, and Dr. Swift is maintenance controller this , so if there are any concerns over the weekend, pt can call the office and they will put him in touch with him. Thanks, Bijal Zee APRN.CEMENTING MACHINE OPERATOR Post Note: Patient calling in requesting return [...] medical facility. Patient states he lives in [place]. This Nurse advised patient to go to the closest hospital where someone can have eyes on him and someone look at his foot and proper evaluation/assessment and diagnostics can be done. This can't be done over the phone. Patient states that he will just wait until his upcoming appointment. Jessica Bentley LPN November 21, 2023 4:51 PM documented in this encounter [facility] 11-15-2023 Note HNO ID: [id number] Author: MARY RIVERA RN Service: Care Management [...] Primary Care Physician Name/Phone: Dr. Riaz Whitman [phone] Additional Information: The patient will dc to home today with family to transport. He will follow up with PCP outpatient. He has no [facility] needs. SIGNATURE: Mary Rviera RN PATIENT NAME: Woody Hernandes DATE: November 15, 2023 TIME: 12:25 PM CONTACT #: [phone] [facility] 11-15-2023 Note HNO ID: [id number] Author: NIKOLAI DIALLO PA-C Service: Vascular Surgery Author Type: Physician Stave Log Cut Off Saw Operator Type: Progress Notes Filed: 11/15/2023 11:25 Note Text: Vascular Surgery Progress Note SERVICE DATE: 11/15/2023 Vascular Surgery Service Pager: For questions or concerns Mon-Fri 6a-5p please page [phone]. After 5pm and on Weekends and Holidays, please page [phone] if in ICU or [phone] if on RNF. Subjective SUBJECTIVE: CC: PAD [...] 0659 11/15/23 07 - 11/16/23 0659 Shift [id number] 9300-0787 6160-6624 24 Hour Total 3239-8348 3381-7131 1679-6111 24 Hour Total INTAKE PO 862 855 7007 PO 093 860 4242 Shift Total 140 671 2513 OUTPUT Urine 400 941 641 8555 Void (ml) 400 778 807 5956 Shift Total 400 966 947 6926 Weight (kg) 89.6 89.6 89.6 89.6 89.6 [...] ORAL q 48 H ipratropium bromide 2 [place] nasal spray (ATROVENT) 2 [place] NASAL QID isosorbide mononitrate ER 30 mg [...] thrombosis (HCC) 11/09/2023 PAD (peripheral artery disease) ([facility]) 06/11/2018 Priority: A Overview Note: Added automatically from request for surgery [id number] Coronary artery disease involving shoalwater coronary artery of sho[place] heart without angina pectoris 06/13/2005 Priority: B Hypertension 06/12/2005 Priority: E History of CAD (coronary artery disease) 11/11/2023 Preoperative clearance 10/30/2023 Heart failure with preser (more content not included)... [facility] 11-15-2023 Note HNO ID: [id number] Author: MARY RIVERA RN Service: Care Management [...] 15, 2023 TIME: 10:46 AM PAGER/CONTACT #: [phone] [facility] 11-14-2023 Note HNO ID: [id number] Author: RENE SWIFT MD Service: General Surgery [...] Following Dc 1 week wound check at [facility] [facility] 4[facility]6 weeks follow up at [facility] with PVRs and LLE arterial duplex Signature: Rene Swift MD Date: 11/14/2023. Time: 4:54 PM Vascular Surgery Progress Note SERVICE DATE: 11/14/2023 Vascular Surgery Service Pager: For questions or concerns Mon-Fri 6a-5p please page [phone]. After 5pm and on Weekends and Holidays, [...] 11/13/23699 - 11/14/2365811/14/23699 - 11/15/23 0659 Shift 4666-5372 5556-6265 9332-4703 24 Hour Total 8887-2378 9452-8316 2013-8603 24 Hour Total INTAKE PO 300 300 400 400 PO 300 300 400 400 Shift Total 300 300 400 400 OUTPUT Urine 225 044 635 6472 200 200 Void (ml) 150 700 850 200 200 Output ([REMOVED] Indwelling Urinary Catheter 11/12/23 [facility] Coude 16 Fr 11/13/23 0902) 225 225 Shift Total 225 322 177 2528 200 200 Weight (kg) 89.6 89.6 89.6 [...] ORAL q 48 H ipratropium bromide 2 [place] nasal spray (ATROVENT) 2 [place] NASAL QID isosorbide mononitrate ER 30 mg [...] and rhythm ABDO (more content not included)... [facility] 11-13-2023 Note HNO ID: [id number] Author: OSVALDO YUSUF DO Service: General Surgery Author Type: Resident Type: Progress Notes Filed: 11/14/2023 13:28 Note Text: Vascular Surgery Progress Note SERVICE DATE: 11/13/2023 Vascular Surgery Service Pager: For questions or concerns Mon-Fri 6a-5p please page [phone]. After 5pm and on Weekends and Holidays, please page [phone] if in ICU or [phone] if on RNF. Subjective SUBJECTIVE: Stroke workup [...] 0659 11/13/23 0700 - 11/14/23 0659 Shift 4480-4904 4431-8761 24 Hour Total 4081-3178 2832-9043 4743-8166 24 Hour Total INTAKE IV 2700 2700 Volume (mL) (lactated ringers iv infusion) 1500 1500 Volume (mL) (NaCl 0.9% iv infusion) 1200 1200 Blood Products 600 1350 Cell Saver Returned Volume 600 1000 Infusion Complete Volume (mL) (RBC Transfusion Instruction) 350 Shift Total 3300 4050 OUTPUT Urine 997 683 7078 225 225 OR Urine Output 600 Output ([REMOVED] Indwelling Urinary Catheter 11/12/23 [facility] Coude 16 Fr 11/13/23 0902) 200 350 550 225 225 Blood 1100 1400 Estimated Blood loss 1100 1400 Shift Total 7610 191 5533 225 225 Weight (kg) 89.6 89.6 89.6 [...] ORAL q 48 H ipratropium bromide 2 [place] nasal spray (ATROVENT) 2 [place] NASAL QID isosorbide mononitrate ER 30 mg [...] thrombosis (HCC) 11/09/2023 PAD (peripheral artery disease) ([facility]) 06/11/2018 Priority: A Overview Note: Added automatically from request for surgery [id number] Coronary artery disease involving shoalwater (more content not included)... [facility] 11-13-2023 Note HNO ID: [id number] Author: RENE SWIFT MD Service: Vascular Surgery [...] 13, 2023 TIME: 10:36 AM PAGER/CONTACT #: [phone] [facility] 11-13-2023 Note HNO ID: [id number] Author: DENAE ORDOÑEZ RN Service: Care Management Author Type: Registered Nurse Type: Care Mgt Initial Assessment Filed: 11/13/2023 10:17 Note Text: CARE MANAGEMENT: ASSESSMENT AND DISCHARGE PLAN SERVICE DATE: November 13, 2023 SERVICE TIME: 10:11 AM PCP: Riaz Whitman MD Primary Contact: Extended Emergency Contact Information Primary Emergency Contact: Argentina Hernandes Address: [address] [place] [id number] [facility] Mobile Relation: Spouse Secondary Emergency Contact: Danni hernandes Mobile Relation: Relative Admission Status: Inpatient Insurance Provider: [place] Discharge Planning requested by: Per Department Practice Potential Transition Plans To Be Determined;Home;Home Care Advance Directives Current Advance Directive: Health Care Power of Associate Programmer In Chart: Yes Up To Date and [...] General wellness, Be able to go home Blessing of Choice Explained: Blessing of Choice Given: No Reason Not Given: [...] (+) RX. Fills scripts at [facility] [place] but would like scripts delivered to the bedside at D/C. SIGNATURE: Denae Ordoñez RN PATIENT NAME: Woody Hernandes DATE: November 13, 2023 TIME: 10:11 AM CONTACT #: [phone] [facility] 11-12-2023 Note HNO ID: [id number] Author: TAMIA BACON DO Service: General Surgery [...] PGY-4 General Surgery Resident 9:54 PM 11/12/2023 [facility] 11-12-2023 Note HNO ID: [id number] Author: KHUSHBOO VELÁZQUEZ MD Service: Anesthesiology Author [...] November 12, 2023 TIME: 9:02 AM CSN: [id number] [facility] 11-12-2023 Note HNO ID: [id number] Author: YOU ORTEZ APRN.CRNA Service: Anesthesiology Author Type: Nurse Drawer Liner Type: Anesthesia Procedure Notes Filed: 11/12/2023 09:01 Note Text: ANESTHESIOLOGY PROCEDURE NOTE Airway General Information Procedure Start Time/Medication Administration: 11/12/2023 8:26 AM Patient location during procedure: OR Timeout Performed Pre-procedure: timeout performed Consent Obtained: Yes Patient identity confirmed: arm band and patient Staffing CONE MARKER: You Ortez APRN.CONE MARKER Indications and Patient Condition Indications for airway [...] 1 Airway not difficult SIGNATURE: You Ortez APRN.CONE MARKER PATIENT NAME: Woody Hernandes DATE: November 12, 2023 TIME: 9:00 AM CSN: [id number] [facility] 11-12-2023 Note HNO ID: [id number] Author: NIKOLAI DIALLO PA-C Service: Vascular Surgery Author Type: Physician Stave Log Cut Off Saw Operator Type: Progress Notes Filed: 11/12/2023 08:54 Note Text: Vascular Surgery Progress Note SERVICE DATE: 11/12/2023 Vascular Surgery Service Pager: For questions or concerns Mon-Fri 6a-5p please page [phone]. 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 [facility] 11-11-2023 Note HNO ID: [id number] Author: MELLISA ODOM, RN Service: Nursing Author Type: Registered Nurse Type: Nursing Progress Note Filed: 11/11/2023 12:12 Note Text: Lexiscan nuclear stress test explained and questions answered. [facility] 11-11-2023 Note HNO ID: [id number] Author: SHAQUILLE GILL RT(R) Service: Nuclear Medicine [...] PATIENT PRESENTS WITH AN IMPLANTABLE OR ATTACHED RETAIL INVENTORY CONTROL CLERK: No CREATININE: Creatinine Date Value Ref Range [...] No IV SITE: [facility] POST EXAM PIV STATUS: Left in for next appointment PROCEDURE TYPE: NM Stress: 13.6 mCi [id number] was administered IV for Rest Imaging at 945 by ms. 35.8 mCi [id number] was administered IV for Stress Imaging at 1135 by ty. ADMINISTRATION TIME: 945 PATIENT DISCHARGED TO: Patient taken to IP transport area for return to [facility]/ICU/ED. A Diagnostic radioactive procedure has taken place, with no further precautions necessary other than routine body substance precautions. More information regarding radiation safety can be found using this link: [email or web address]%[email or web address]%[email or web address] [email or web address] SIGNATURE: RT Lul(R) PATIENT NAME: Woody Hernandes DATE: November 11, 2023 TIME: 11:46 AM PAGER/CONTACT #: [facility] 11-11-2023 Note HNO ID: [id number] Author: NIKOLAI DIALLO PA-C Service: Vascular Surgery Author Type: Physician Stave Log Cut Off Saw Operator Type: Progress Notes Filed: 11/11/2023 15:01 Note Text: Vascular Surgery Progress Note SERVICE DATE: 11/11/2023 Vascular Surgery Service Pager: For questions or concerns Mon-Sat 6a-5p please page [phone]. After 5pm and on Weekends and Holidays, please page [phone] if in ICU or [phone] if on [facility]. Subjective SUBJECTIVE: CC: PAD Today I [...] - 11/11/2359 11/11/23699 - 11/12/23 0659 Shift 9276-6049 9881-2437 3058-7763 24 Hour Total 0015-8782 6390-3761 0782-5963 24 Hour Total INTAKE Shift Total OUTPUT [...] ORAL q 48 H ipratropium bromide 2 [place] nasal spray (ATROVENT) 2 [place] NASAL QID isosorbide mononitrate ER 30 mg [...] of Dr. Valladares (more content not included)... [facility] 10-18-2023 Note HNO ID: [id number] Author: RENE SWIFT MD Service: ? Author Type: Physician Type: Progress Notes Filed: 10/18/2023 11:03 Note Text: Surgery/Procedure Date: 09/06/2023 Surgeon(s)/Proceduralist(s) and Stave Log Cut Off Saw Operator(s): Surgeon(s) and Role: * Rene Swift MD - Primary INTERVENTIONAL PROCEDURE: 1. Ultrasound-guided right common femoral access 2. Aorta and pelvic angiogram 3. Left ileofemoral angiogram 4. Right external iliac intravascular lithotripsy and DCB with 9x60 [facility] ESTABLISHED CLINIC VISIT Woody Hernandes [id number] HPI: Mr. Hernandes is a 88 year [...] mcg/actuation inhaler TWICE (more content not included)... [facility] 09-24-2023 Note HNO ID: [id number] Author: Vipul Brady Service: ? Author Type: [...] Objective: [facility] V[facility]: DP and PT pulses are nonpalpable [...] RTC in 3-4 months. Vipul Brady DPM [facility] 09-24-2023 Note HNO ID: [id number] Author: Chelsie Bradshaw LPN Service: ? Author Type: LICENSED NURSE Type: Progress Notes Filed: 09/24/2023 1:56 PM Note Text: AMB ROOMING INTAKE FLOWSHEET DATA Risk Screening Do you have concerns about personal safety or safety in the home?: No Patient presents with: Left Foot - Established Patient, Diabetic Foot Care Right Foot - Established Patient, Diabetic Foot Care Chelsie Bradshaw LPN [facility] 08-21-2023 Note HNO ID: [id number] Author: Rene Swift MD Service: ? Author Type: Physician Type: Progress Notes Filed: 08/21/2023 3:53 PM Note Text: [facility] [place] DEPARTMENT OF VASCULAR SURGERY OUTPATIENT VISIT DATE August 21, 2023 OUTPATIENT VISIT TYPE CONSULTATION PRIMARY CARE PHYSICIAN: Riaz Whitman MD REFERRING PROVIDER: Eliza Meme Mallory [address] [place] [id number] Consult requested for an opinion regarding the [...] needed. acetaminophen (TYLENOL) (more content not included)... [facility] 08-21-2023 History of Presen t illness Narrative Images from the original note were not included. [facility] [place] DEPARTMENT OF VASCULAR SURGERY OUTPATIENT VISIT DATE August 21, 2023 OUTPATIENT VISIT TYPE CONSULTATION PRIMARY CARE PHYSICIAN: Riaz Whitman MD REFERRING PROVIDER: Eliza Mallory [address] [place] [id number] Consult requested for an opinion regarding the [...] Dx: Z74.90, R26.89, I73.9, J44.1, M54.5, G89.29 Uzcutr-Pmexdzm-Qcz Palm-Min 17 (PROSTATE THERAPY) cap Take 2 [...] 1998 Aorto-iliac atherosclerosis (HCC) 08/21/2023 Atherosclerosis of shoalwater artery of both lower extremities with intermittent claudication (HCC) 08/21/2023 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 Hilliard. Coronary atherosclerosis of unspecified type of vessel, shoalwater or graft 06/13/2005 Diverticulitis of colon (without [...] MAJOR SURGERY 1998 With inguinal hernia repair [facility] INCL FLUOR GDNCE DX W/CELL WASHG SPX [...] Vascular Surgery Staff documented in this encounter [facility] 08-15-2023 Miscellaneous Notes Patient scheduled Patient called in stating someone from Dr. Mallory's office called so I'm returning the call . Please advise documented in this encounter [facility] 07-01-2023 Note HNO ID: [id number] Author: Vipul Brady Service: ? Author Type: [...] mellitus (HCC) (I73.9) PAD (peripheral artery disease) ([facility]) Plan: Patient was seen and evaluated. Nails 1-5 bilateral were debrided in length and thickness. Patient was instructed on the continued importance of diabetic foot care along with proper diet and keeping their blood sugar under control to prevent complications. Patient is to RTC in 3-4 months. Vipul Brady DPM [facility] 07-01-2023 Note HNO ID: [id number] Author: Annie Arzola RN Service: ? Author [...] times except from his toenails being long. [facility] 05-22-2023 Miscellaneous Notes Spoke with patient and transferred to central scheduling to schedule CT Patient calling he would not like to get scheduled for CT with runoff as recommended in March Please place order will call patient to schedule Order pending documented in this encounter [facility] 03-29-2023 Note HNO ID: [id number] Author: Vipul Brady Service: ? Author Type: [...] mellitus (HCC) (I73.9) PAD (peripheral artery disease) ([facility]) Plan: Patient was seen and evaluated. Nails [...] RTC in 3-4 months. Vipul Brady DPM [facility] 03-29-2023 Note HNO ID: [id number] Author: Chelsie Bradshaw LPN Service: ? Author [...] Diabetic Foot Care, Pain Chelsie Bradshaw LPN [facility] 03-29-2023 History of Presen t illness [...] mellitus (HCC) (I73.9) PAD (peripheral artery disease) ([facility]) Plan: Patient was seen and evaluated. Nails [...] Chelsie Bradshaw LPN documented in this encounter [facility] 03-29-2023 Instructions Vipul Brady - 03/29/2023 [...] (or decreased sensation in your feet) a drum drier should always cut your toenails. Be Careful [...] Go to your health care provider or drum drier to treat these conditions. documented in this encounter [facility] 03-28-2023 Miscellaneous Notes Spoke with Woody [...] [place] CT abdomen/pelvis with contrast imported from [facility] () for review. Woody would like to be called with results. Please review and advise. JOSE Rico documented in this encounter [facility] 02-05-2023 Miscellaneous Notes Opened in error documented in this encounter [facility] 02-05-2023 Note HNO ID: [id number] Author: Eliza Mallory DO Service: Vascular Surgery Author Type: Physician Type: Progress Notes Filed: 02/15/2023 1:21 PM Note Text: NAME: WOODY HERNANDES [facility] NO: [id number] DATE OF SERVICE: 02/05/2023 Subjective: Mr. Hernandes [...] had a CT scan with contrast at [place]. We will review that and follow up afterwards, as his pain is getting progressive worse and worse and he does barely any ambulation. He may benefit from intervention pending review of his scans. He is agreeable to this plan. We will call him once I am able to see his CT from [place]. Eliza Mallory D.O. KB/089 Audio #: [id number] Date Dictated: 02/05/2023 08:25:11 Date Typed: 02/08/2023 09:08:43 Date Revised: [facility] 02-05-2023 Note HNO ID: [id number] Author: Eliza Mallory DO Service: ? Author Type: Physician Type: Progress Notes Filed: 02/05/2023 10:32 AM Note Text: This office note has been dictated. Eliza Mallory DO [facility] 02-05-2023 History of Presen t illness Narrative This office note has been dictated. Eliza Mallory DO documented in this encounter [facility] 12-14-2022 Note HNO ID: [id number] Author: Vipul Brady Service: ? Author Type: [...] Objective: Patient presents to clinic ambulating in general acute hospital Vasc: DP and PT pulses are nonpalpable bilateral. CFT is less than 5 seconds bilateral. Skin temperature is warm to cool proximal to distal bilateral. There is mild edema or varicosities noted. Non-Invasive [facility] Lower Extremity Arterial Physiology Study Bilateral/Complete [...] mellitus (HCC) (I73.9) PAD (peripheral artery disease) ([facility]) Plan: Patient was seen and evaluated. Nails 1-5 bilateral were debrided in length and thickness. Small bleed to left 2nd toe. Patient was instructed on the continued importance of diabetic foot care along with proper diet and keeping their blood sugar under control to prevent complications. Patient is to RTC in 3-4 months. Vipul Brady DPM [facility] 12-14-2022 Note HNO ID: [id number] Author: Chelsie Bradshaw LPN Service: ? Author Type: LICENSED NURSE Type: Progress Notes Filed: 12/14/2022 2:20 PM Note Text: AMB ROOMING INTAKE FLOWSHEET DATA Patient presents with: Left Foot - Established Patient, Follow Up, Diabetic Foot Care Right Foot - Established Patient, Follow Up, Diabetic Foot Care Chelsie Bradshaw LPN [facility] 12-14-2022 History of Presen t illness [...] edema or varicosities noted. Non-Invasive [facility] Lower Extremity Arterial Physiology Study Bilateral/Complete [...] mellitus (HCC) (I73.9) PAD (peripheral artery disease) ([facility]) Plan: Patient was seen and evaluated. Nails [...] Chelsie Bradshaw LPN documented in this encounter [facility] 12-14-2022 Instructions Vipul Brady - 12/14/2022 [...] (or decreased sensation in your feet) a drum drier should always cut your toenails. Be Careful [...] Go to your health care provider or drum drier to treat these conditions. documented in this encounter [facility] 09-06-2022 History of Presen t illness [...] mellitus (HCC) (I73.9) PAD (peripheral artery disease) ([facility]) Plan: Patient was seen and evaluated. Nails [...] at this time. documented in this encounter [facility] 09-06-2022 Instructions Vipul Brady - 09/06/2022 [...] (or decreased sensation in your feet) a drum drier should always cut your toenails. Be Careful [...] Go to your health care provider or drum drier to treat these conditions. documented in this encounter [facility] 05-31-2022 History of Presen t illness [...] Objective: Patient presents to clinic ambulating in general acute hospital Vasc: DP and PT pulses are [...] Vipul Brady DPM documented in this encounter [facility] 05-31-2022 Instructions Vipul Brady - 05/31/2022 [...] (or decreased sensation in your feet) a drum drier should always cut your toenails. Be Careful [...] Go to your health care provider or drum drier to treat these conditions. documented in this encounter [facility] 05-25-2022 Instructions Emeka Horn MD - 05/25/2022 4:55 PM EDT ISOSORBIDE MONONITRATE 30 MG DAILY is prescribed from here in [facility]. CHECK WITH DR. MOORE IF TAMSULOSIN (Flomax) prescribed from the ER, is still needed. documented in this encounter [facility] 05-25-2022 History of Presen t illness Narrative This note was created using [employer]. Subjective Transitional Care Management Progress Note The [...] (2L) half the jug the second night [employer] Power scooter Dx: Z74.90, R26.89, I73.9, J44.1, M54.5, G89.29 Gdaooo-Hmnotrz-Ysl Palm-Min 17 (PROSTATE THERAPY) cap Take 2 [...] MD TRANSITION CARE MANAGEMENT (TCM) INITIAL CONTACT Operation Shift Supervisor Outreach Provider Action/FYI: TCM Initial contact with patient post discharge, spoke to patient. Patient identified by name and . TRANSITION CARE MANAGEMENT INITIAL OUTREACH DOCUMENTATION: Date of Outreach: 05/18/2022 Outreach Attempt 1: Contact Made Date of Discharge 05/16/2022 Some recent data might be hidden SUMMARY: -Pt discharged from [facility] on 05/16/22. -Admitted for: decompensated HFPEF Do [...] provider to review documented in this encounter [facility] 05-14-2022 History of Presen t illness [...] he has had urinary retention, seen at [facility] ER then by Dr Noriega. Reports he [...] cream Apply to affected area as needed. [employer] Power scooter Dx: Z74.90, R26.89, I73.9, J44.1, M54.5, G89.29 Fttjfk-Wdbktgr-Rdq Palm-Min 17 (PROSTATE THERAPY) cap Take 2 [...] Coronary atherosclerosis of unspecified type of vessel, shoalwater or graft 06/13/2005 Diverticulitis of colon (without [...] - XR ABDOMEN 1V SUPINE Dominique Reese APRN.QUALITATIVE FIELD PROJECT MANAGER documented in this encounter [facility] 05-02-2022 History of Presen t illness [...] 2022 10:39 AM documented in this encounter [facility] 04-26-2022 History of Presen t illness [...] 2022 2:05 PM documented in this encounter [facility] 04-26-2022 History of Presen t illness Narrative HISTORY AND PHYSICAL Woody Hernandes 1935 REFERRING PHYSICIAN: Dominique Reese APRN.QUALITATIVE FIELD PROJECT MANAGER CHIEF COMPLAINT: Consult (Constipation) HPI: The patient [...] Coronary atherosclerosis of unspecified type of vessel, shoalwater or graft 06/13/2005 Diverticulitis of colon (without [...] MAJOR SURGERY 1998 With inguinal hernia repair [facility] INCL FLUOR GDNCE DX W/CELL WASHG SPX [...] cream Apply to affected area as needed. [employer] Power scooter Dx: Z74.90, R26.89, [...] to printed prep instructions from your provider. Umcbci-Ctzyjfi-Dcz Palm-Min 17 (PROSTATE THERAPY) cap Take 2 [...] entered by the nurse and reviewed by in Nursing Notes: Liz Murcia RN 04/26/2022 1:36 [...] Colton Mendez MD documented in this encounter [facility] 04-26-2022 Instructions Colton Mendez MD - [...] you do not have a responsible sales driver (family member or friend) with you [...] midnight. 2 09/2019 documented in this encounter [facility] 04-26-2022 Nurse Note REVIEW OF SYSTEMS: [...] Liz Murcia RN documented in this encounter [facility] 04-12-2022 Instructions Dominique Reese APRN.KORIN - 04/12/2022 11:16 AM EDT Drink about 64 ounces of fluid daily OK to take miralax once or twice daily as needed. OK to try metamucil gummies. Schedule appointment with general surgery to discuss colonoscopy documented in this encounter [facility] 04-12-2022 History of Presen t illness [...] cream Apply to affected area as needed. [employer] Power scooter Dx: Z74.90, R26.89, I73.9, J44.1, M54.5, G89.29 Iffrvj-Vvifbes-Uti Palm-Min 17 (PROSTATE THERAPY) cap Take 2 [...] Coronary atherosclerosis of unspecified type of vessel, shoalwater or graft 06/13/2005 Diverticulitis of colon (without [...] in usual quantity. Note colonoscopy 2016 at [facility], polyps noted. 5-year follow-up recommended. Recommend he [...] 4 - Moderate documented in this encounter [facility] 03-28-2022 History of Presen t illness Narrative This note was created using [employer]. Subjective Woody Hernandes is a 86 year old male. He had TURP 03/07/22. He was admitted 03/09-03/22/22 for debility. He was back home now and going to [facility] for outpatient PT. His only complaints [...] Type 2 Diabetes Mellitus With Neurological Manifestations ([facility]) Chronic Midline Low Back Pain Without Sciatica Peripheral Arterial Disease ([facility]) Tobacco Use Disorder S/P Femoral-Popliteal Bypass Surgery Obesity, Class I, Bmi 30-34.9 Ckd (Chronic Kidney Disease) Stage 3, Gfr 30-59 Ml/Min ([facility]) Current Outpatient Medications Medication Sig metFORMIN [...] cream Apply to affected area as needed. [employer] Power scooter Dx: Z74.90, R26.89, I73.9, J44.1, M54.5, G89.29 Flokmd-Nbwpqws-Nhw Palm-Min 17 (PROSTATE THERAPY) cap Take 2 [...] Emeka Horn MD documented in this encounter [facility] 02-07-2022 History of Presen t illness [...] cough associated with COPD is overall stable, financial compliance manager is Dr. Rivero. Using Symbicort and albuterol nebulizer as instructed. He has chronic BLE edema which is overall stable. Oyster Grader is with [facility]. REVIEW OF SYSTEMS General: no [...] Coronary atherosclerosis of unspecified type of vessel, shoalwater or graft 06/13/2005 Diverticulitis of colon (without [...] MAJOR SURGERY 1998 With inguinal hernia repair [facility] INCL FLUOR GDNCE DX W/CELL WASHG SPX [...] cream Apply to affected area as needed. [employer] Supply Power scooter Dx: Z74.90, R26.89, I73.9, J44.1, M54.5, G89.29 Gckngr-Jxnckay-Mvh Palm-Min 17 (PROSTATE THERAPY) cap Take 2 [...] Samantha Aguirre APRN.CNP documented in this encounter [facility] 02-07-2022 Nurse Note 02/07/2022: Home BP Cuff Validated. Home BP: 157/101 HR 89 Office BP: 158/74 HR 60 documented in this encounter [facility] 02-02-2022 History of Presen t illness [...] Objective: Patient presents to clinic ambulating in general acute hospital Vasc: DP and PT pulses are [...] mellitus (HCC) (I73.9) PAD (peripheral artery disease) ([facility]) Plan: Patient was seen and evaluated. Nails [...] Patient, Nail Care documented in this encounter [facility] 02-02-2022 Instructions iVpul Brady - 02/02/2022 1:47 PM EDT Diabetes [...] (or decreased sensation in your feet) a drum drier should always cut your toenails. Be Careful [...] Go to your health care provider or drum drier to treat these conditions. documented in this encounter [facility] 01-09-2022 History of Presen t illness Narrative This office note has been dictated. Eliza Mallory DO documented in this encounter [facility] 12-28-2021 Miscellaneous Notes Perfect! Thank you! Spoke with patient and rescheduled AAA and scheduled PVR on 01/08/22. Cassie Dueñas This patient needs additional testing, PVR- order in placed, scheduled prior to appointment. Also the AAA testing is scheduled after the visit and that does not work. Please schedule both tests prior to the appointment. Thank you! documented in this encounter [facility] documented as of this encounter (statuses as of 12/28/2021) [facility] History of Past illness Narrative* Problem Noted Date Resolved Date PAD (peripheral artery disease) 06/11/2018 10/29/2018 Overview: Added automatically from request for surgery [id number] Last Assessment & Plan: S/P Surgery. Continue [...] of this encounter (statuses as of 01/09/2022) [facility] History of Past illness Narrative* Problem Noted Date Resolved Date PAD (peripheral artery disease) 06/11/2018 10/29/2018 Overview: Added automatically from request for surgery [id number] Last Assessment & Plan: S/P Surgery. Continue [...] of this encounter (statuses as of 02/02/2022) [facility] History of Past illness Narrative* Problem Noted Date Resolved Date PAD (peripheral artery disease) 06/11/2018 10/29/2018 Overview: Added automatically from request for surgery [id number] Last Assessment & Plan: S/P Surgery. Continue [...] of this encounter (statuses as of 02/07/2022) [facility] History of Past illness Narrative* Problem Noted Date Resolved Date PAD (peripheral artery disease) 06/11/2018 10/29/2018 Overview: Added automatically from request for surgery [id number] Last Assessment & Plan: S/P Surgery. Continue [...] of this encounter (statuses as of 03/28/2022) [facility] History of Past illness Narrative* Problem Noted Date Resolved Date PAD (peripheral artery disease) 06/11/2018 10/29/2018 Overview: Added automatically from request for surgery [id number] Last Assessment & Plan: S/P Surgery. Continue [...] of this encounter (statuses as of 04/12/2022) [facility] History of Past illness Narrative* Problem Noted Date Resolved Date PAD (peripheral artery disease) 06/11/2018 10/29/2018 Overview: Added automatically from request for surgery [id number] Last Assessment & Plan: S/P Surgery. Continue [...] of this encounter (statuses as of 04/26/2022) [facility] History of Past illness Narrative* Problem Noted Date Resolved Date PAD (peripheral artery disease) 06/11/2018 10/29/2018 Overview: Added automatically from request for surgery [id number] Last Assessment & Plan: S/P Surgery. Continue [...] of this encounter (statuses as of 04/27/2022) [facility] History of Past illness Narrative* Problem Noted Date Resolved Date PAD (peripheral artery disease) 06/11/2018 10/29/2018 Overview: Added automatically from request for surgery [id number] Last Assessment & Plan: S/P Surgery. Continue [...] of this encounter (statuses as of 05/03/2022) [facility] of Past illness Narrative* Problem Noted Date Resolved Date PAD (peripheral artery disease) 06/11/2018 10/29/2018 Overview: Added automatically from request for surgery [id number] Last Assessment & Plan: S/P Surgery. Continue [...] of this encounter (statuses as of 05/14/2022) [facility] of Past illness Narrative* Problem Noted Date Resolved Date PAD (peripheral artery disease) 06/11/2018 10/29/2018 Overview: Added automatically from request for surgery [id number] Last Assessment & Plan: S/P Surgery. Continue [...] of this encounter (statuses as of 05/27/2022) [facility] of Past illness Narrative* Problem Noted Date Resolved Date PAD (peripheral artery disease) 06/11/2018 10/29/2018 Overview: Added automatically from request for surgery [id number] Last Assessment & Plan: S/P Surgery. Continue [...] of this encounter (statuses as of 05/31/2022) [facility] History of Past illness Narrative* Problem Noted Date Resolved Date PAD (peripheral artery disease) 06/11/2018 10/29/2018 Overview: Added automatically from request for surgery [id number] Last Assessment & Plan: S/P Surgery. Continue [...] of this encounter (statuses as of 09/06/2022) [facility] of Past illness Narrative* Problem Noted Date Resolved Date PAD (peripheral artery disease) 06/11/2018 10/29/2018 Overview: Added automatically from request for surgery [id number] Last Assessment & Plan: S/P Surgery. Continue [...] of this encounter (statuses as of 12/14/2022) [facility] of Past illness Narrative* Problem Noted Date Resolved Date PAD (peripheral artery disease) 06/11/2018 10/29/2018 Overview: Added automatically from request for surgery [id number] Last Assessment & Plan: S/P Surgery. Continue [...] of this encounter (statuses as of 02/05/2023) [facility] of Past illness Narrative* Problem Noted Date Resolved Date PAD (peripheral artery disease) 06/11/2018 10/29/2018 Overview: Added automatically from request for surgery [id number] Last Assessment & Plan: S/P Surgery. Continue [...] of this encounter (statuses as of 02/07/2023) [facility] of Past illness Narrative* Problem Noted Date Resolved Date PAD (peripheral artery disease) 06/11/2018 10/29/2018 Overview: Added automatically from request for surgery [id number] Last Assessment & Plan: S/P Surgery. Continue [...] of this encounter (statuses as of 03/28/2023) [facility] History of Past illness Narrative* Problem Noted Date Resolved Date PAD (peripheral artery disease) 06/11/2018 10/29/2018 Overview: Added automatically from request for surgery [id number] Last Assessment & Plan: S/P Surgery. Continue [...] of this encounter (statuses as of 03/29/2023) [facility] History of Past illness Narrative* Problem Noted Date Diagnosed Date Resolved Date PAD (peripheral artery disease) 06/11/2018 10/29/2018 Overview: Added automatically from request for surgery [id number] Last Assessment & Plan: S/P Surgery. Continue [...] of this encounter (statuses as of 05/23/2023) [facility] History of Past illness Narrative* Problem Noted Date Diagnosed Date Resolved Date PAD (peripheral artery disease) 06/11/2018 10/29/2018 Overview: Added automatically from request for surgery [id number] Last Assessment & Plan: S/P Surgery. Continue [...] of this encounter (statuses as of 08/15/2023) [facility] of Past illness Narrative* Problem Noted Date Diagnosed Date Resolved Date PAD (peripheral artery disease) 06/11/2018 10/29/2018 Overview: Added automatically from request for surgery [id number] Last Assessment & Plan: S/P Surgery. Continue [...] of this encounter (statuses as of 08/22/2023) [facility] of Past illness Narrative* Problem Noted Date Diagnosed Date Resolved Date PAD (peripheral artery disease) 06/11/2018 10/29/2018 Overview: Added automatically from request for surgery [id number] Last Assessment & Plan: S/P Surgery. Continue [...] of this encounter (statuses as of 09/06/2023) [facility] of Past illness Narrative* Problem Noted Date Diagnosed Date Resolved Date PAD (peripheral artery disease) 06/11/2018 10/29/2018 Overview: Added automatically from request for surgery [id number] Last Assessment & Plan: S/P Surgery. Continue [...] of this encounter (statuses as of 09/06/2023) [facility] History of Past illness Narrative* Problem [...] of this encounter (statuses as of 11/22/2023) [facility] of Past illness Narrative* Problem [...] of this encounter (statuses as of 11/25/2023) [facility] of [facility] illness Narrative* Problem [...] of this encounter (statuses as of 12/12/2023) [facility] Peripheral arterial disease (HCC)- Primary Peripheral vascular disease, unspecified [facility] Diagnosis Onychomycosis- Primary Dermatophytosis of nail Pain in toe of right foot Pain in limb Pain in toe of left foot Pain in limb Diabetic polyneuropathy associated with type 2 diabetes mellitus (HCC) PAD (peripheral artery disease) (HCC) Peripheral vascular disease, unspecified [facility] Diagnosis Well controlled type 2 diabetes [...] tract symptoms (LUTS) [facility] Diagnosis S/P TURP (status post transurethral resection of prostate)- Primary Other postprocedural status Chronic idiopathic constipation Unspecified constipation Well controlled type 2 diabetes mellitus with neurological manifestations (HCC) Type II or unspecified type diabetes mellitus with neurological manifestations, not stated as uncontrolled Allergic rhinitis, unspecified seasonality, unspecified trigger Essential hypertension Unspecified essential hypertension [facility] Diagnosis Chronic idiopathic constipation- Primary Unspecified constipation Altered bowel habits Other symptoms involving digestive system Nausea and vomiting, unspecified vomiting type [facility] Diagnosis Chronic idiopathic constipation Unspecified constipation Altered bowel habits Other symptoms involving digestive system [facility] Diagnosis Chronic idiopathic constipation Unspecified constipation Altered bowel habits Other symptoms involving digestive system [facility] Diagnosis Chronic idiopathic constipation Unspecified constipation Altered bowel habits Other symptoms involving digestive system [facility] Diagnosis Chronic idiopathic constipation- Primary Unspecified constipation S/P TURP (status post transurethral resection of prostate) Other postprocedural status Altered bowel habits Other symptoms involving digestive system [facility] Diagnosis Respiratory failure, unspecified chronicity, [...] ejection fraction (HCC) [facility] Diagnosis Onychomycosis- Primary Dermatophytosis of nail [...] atherosclerosis (HCC) Atherosclerosis of aorta Atherosclerosis of sho[place] artery of both lower extremities with intermittent claudication (HCC) Atherosclerosis of [place] arteries of the extremities with intermittent claudication S/P aorta repair Other postprocedural status Former smoker Personal history of tobacco use, presenting hazards to health Essential hypertension Unspecified essential hypertension Peripheral arterial disease (HCC) Peripheral vascular disease, unspecified Superficial femoral artery occlusion (HCC) Atherosclerosis of shoal[place] arteries of the extremities, unspecified Mixed hyperlipidemia 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) Respiratory failure, unspecified chronicity, unspecified whether with hypoxia or hypercapnia (HCC) PAD (peripheral artery disease) (HCC) Peripheral vascular disease, unspecified [facility] Peripheral vascular disease (HCC)- Primary Peripheral vascular disease, unspecified [facility] Diagnosis Encounter for screening for cardiovascular disorders- Primary Screening for other and unspecified cardiovascular conditions [facility] Diagnosis Peripheral arterial disease (HCC)- Primary Peripheral vascular disease, unspecified Atherosclerosis of sho[place] artery of left lower extremity with rest pain (HCC) Atherosclerosis of [place] arteries of the extremities with rest pain PAD (peripheral artery disease) (HCC) Peripheral vascular disease, unspecified Superficial femoral artery occlusion (HCC) Atherosclerosis of sho[place] arteries of the extremities, unspecified Abnormal ankle brachial index (MELISSA) 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 [facility]* Diagnosis PAD (peripheral artery disease) (HCC)- Primary Peripheral vascular disease, unspecified 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 Peripheral arterial disease (HCC) Peripheral vascular disease, unspecified Mixed hyperlipidemia Symptom of leg swelling [facility] Outpatient Procedure (Routine) - Pending Review Specialty Diagnoses / Procedures Referred By Contac t Referred To Contact [facility] [place] Diagnoses Peripheral arterial disease (HCC) Procedures PVR LEG [facility] NON-INVASIVE PHYSIOLOGIC STUDY EXTREMITY 3 LEVLS Eliza Mallory DO [address] [place] [address] [facility] [place] [facility] [address] [address] Referral ID Status Reason Start Date Expiration Date Visits Requested Visits Authorized [id number] Pending Review Auto-Generat ed Referral 01/09/2022 01/09/2023 1 1 * Outpatient Procedure (Routine) - Pending Review Specialty Diagnoses / Procedures Referred By Contac t Referred To Contact [facility] [place] Diagnoses Peripheral arterial disease (HCC) Procedures US ABD AORTA COMPLETE VAS LAB DUP-SCAN AORTA IVC ILIAC VASCL/BPGS COMPLETE Eliza Mallory DO [address] [place] [address] [facility] [place] [facility] [id number] [place] [address] Referral ID Status Reason Start Date Expiration Date Visits Requested Visits Authorized [id number] Pending Review Auto-Generat ed Referral 01/09/2022 01/09/2023 1 1 [facility] for referral (narrative)* Outpatient Procedure (Routine) - Authorized Specialty Diagnoses / Procedures Referred By Contac t Referred To Contact [facility] Diagnoses Chronic idiopathic constipation Altered bowel habits Procedures COLONOSCOPY DIAGNOSTIC COLONOSCOPY FLX DX W/COLLJ SPEC WHEN PFColton Del Cid MD [address] [place] [address] [facility] [address] [place] [address] Referral ID Status Reason Start Date Expiration Date Visits Requested Visits Authorized [id number] Authorized Auto-Generat ed Referral 04/26/2022 04/26/2023 1 1 * Diagnostic Procedure Only (Routine) - Closed Specialty Diagnoses / Procedures Referred By Contac t Referred To Contact XR IMAGING Diagnoses Chronic idiopathic constipation Altered bowel habits Procedures XR ABDOMEN 1V SUPINE RADIOLOGIC EXAM ABDOMEN 1 VIEW Colton Mendez MD [address] [place] [address] Xr Imaging Referral ID Status Reason Start Date Expiration Date V isits Requested Visits Authorized [id number] Closed Auto-Generate d Referral 04/26/2022 05/26/2023 1 1 [facility] for referral (narrative)* Diagnostic Procedure Only (Routine) - Closed Specialty Diagnoses / Procedures Referred By Contac t Referred To Contact XR IMAGING Diagnoses Chronic idiopathic constipation Altered bowel habits Procedures XR ABDOMEN 1V SUPINE RADIOLOGIC EXAM ABDOMEN 1 VIEW Colton Mendez MD [address] [place] [address] Xr Imaging Referral ID Status Reason Start Date Expiration Date V isits Requested Visits Authorized [id number] Closed Auto-Generate d Referral 04/26/2022 05/26/2023 1 1 [facility] for referral (narrative)* Diagnostic Procedure Only (Routine) - Closed Specialty Diagnoses / Procedures Referred By Naveen herrera Referred To Contact XR IMAGING Diagnoses Chronic idiopathic constipation Altered bowel habits Procedures XR ABDOMEN 1V SUPINE RADIOLOGIC EXAM ABDOMEN 1 VIEW Colton Mendez MD [address] [place] [address] Xr Imaging Referral ID Status Reason Start Date Expiration Date V isits Requested Visits Authorized [id number] Closed Auto-Generate d Referral 05/03/2022 05/26/2023 1 1 [facility] for referral (narrative)* Diagnostic Procedure Only (Routine) - Pending Review Specialty Diagnoses / Procedures Referred By Naveen herrera Referred To Contact XR IMAGING Diagnoses Altered bowel habits Procedures XR ABDOMEN 1V SUPINE RADIOLOGIC EXAM ABDOMEN 1 VIEW Dominique Reese APRN.CNS [address] [place] [address] Xr Imaging Referral ID Status Reason Start Date Expiration Date Visits Requested Visits Authorized [id number] Pending Review Auto-Generat ed Referral 05/14/2022 06/13/2023 1 1 [facility] for referral (narrative)* Outpatient Procedure (Routine) - Pending Review Specialty Diagnoses / Procedures Referred By Naveen herrera Referred To [facility] Diagnoses Peripheral vascular disease (HCC) Procedures PVR ANK PRESS [facility] NON-INVAS PHYSIOLOGIC STD EXTREMITY ART 2 LEVEL Rene Swift MD [address] [place] [address] [facility] [place] [address] [place] [address] Referral ID Status Reason Start Date Expiration Date Visits Requested Visits Authorized [id number] Pending Review Auto-Generat ed Referral 09/06/2023 09/05/2024 1 1 [facility] for referral (narrative)* Outpatient Procedure (Routine) - Pending Review Specialty Diagnoses / Procedures Referred By Naveen herrera Referred To Contact [facility] [place] Diagnoses Encounter for screening for cardiovascular disorders Procedures ECHO ECHO TTHRC R-T 2D W/WOM-MODE COMPL SPEC&COLR D Rene Swift MD [address] [place] [address] [address] Referral ID Status Reason Start Date Expiration Date Visits Requested Visits Authorized [id number] Pending Review Auto-Generat ed Referral 09/06/2023 09/05/2024 1 1 * Diagnostic Procedure Only (Routine) - Pending Review Specialty Diagnoses / Procedures Referred By Naveen herrera Referred To Contact [facility] Diagnoses Encounter for screening for cardiovascular disorders Procedures NM CARDIAC PERF STRESS/PHARM MYOCARDIAL SPECT MULTIPLE STUDIES Rene Swift MD [address] [place] [address] [facility] [address] [place] [address] Referral ID Status Reason Start Date Expiration Date Visits Requested Visits Authorized [id number] Pending Review Auto-Generat ed Referral 09/06/2023 10/05/2024 1 1 [facility] for referral (narrative)* Outpatient Procedure (Routine) - Pending Review Specialty Diagnoses / Procedures [facility] Referred To Contact [facility] Diagnoses Peripheral arterial disease (HCC) Procedures PVR LEG [facility] NON-INVASIVE PHYSIOLOGIC STUDY EXTREMITY 3 Rene Blas MD [address] [place] [address] [address] Referral ID Status Reason Start Date Expiration Date Visits Requested Visits Authorized [id number] Pending Review Auto-Generat ed Referral 06/13/2024 12/11/2024 1 1 [facility] for visit Narrative* Diagnostic Procedure Only (Routine) - Closed Specialty Diagnoses / Procedures Referred By Contac t Referred To Contact XR IMAGING Diagnoses Chronic idiopathic constipation Altered bowel habits Procedures XR ABDOMEN 1V SUPINE RADIOLOGIC EXAM ABDOMEN 1 VIEW Colton Mendez MD [address] [place] [address] Xr Imaging Referral ID Status Reason Start Date Expiration Date V isits Requested Visits Authorized [id number] Closed Auto-Generate d Referral 04/26/2022 05/26/2023 1 1 [facility] for visit Narrative* Diagnostic Procedure Only (Routine) - Closed Specialty Diagnoses / Procedures Referred By Naveen t Referred To Contact XR IMAGING Diagnoses Chronic idiopathic constipation Altered bowel habits Procedures XR ABDOMEN 1V SUPINE RADIOLOGIC EXAM ABDOMEN 1 VIEW Colton Mendez MD [address] [facility] [place] [address] Xr Imaging Referral ID Status Reason Start Date Expiration Date V isits Requested Visits Authorized [id number] Closed Auto-Generate d Referral 05/03/2022 05/26/2023 1 1 [facility] Advance Directives No Advanced Directives Records FoundDocuments on File Type Date Recorded Patient Translator Expl anation Advance Directive(s) 08/05/2018 11:34 AM Advance Directive(s) 12/08/2015 12:19 PM Advance Directive(s) 12/05/2015 11:47 AM Advance Directive(s) 12/05/2015 12:35 PM Advance Directive(s) 11/14/2015 10:54 AM Documents on File Type Date Recorded Patient Translator Expl anation Advance Directive(s) 08/05/2018 11:34 AM Advance Directive(s) 12/08/2015 12:19 PM Advance Directive(s) 12/05/2015 11:47 AM Advance Directive(s) 12/05/2015 12:35 PM Advance Directive(s) 11/14/2015 10:54 AM Documents on File Type Date Recorded Patient Translator Expl anation Advance Directive(s) 12/08/2015 12:19 PM Documents on File Type Date Recorded Patient Translator Expl anation Advance Directive(s) 12/08/2015 12:19 PM Documents on File Type Date Recorded Patient Translator Expl anation Advance Directive(s) 11/22/2023 7:29 AM Advance Directive(s) 12/08/2015 12:19 PM Documents on File Type Date Recorded Patient Translator Expl anation Advance Directive(s) 11/22/2023 7:29 AM Advance Directive(s) 12/08/2015 12:19 PM Reason for Referral Specialty Diagnoses / Procedures Referred By Contac t Referred To Contact Nephrology Diagnoses Stage 3a chronic kidney disease (HCC) Procedures CONSULT TO NEPHROLOGY OFFICE/OUTPATIENT [facility] MDM 60-74 MINUTES Timothy, Samantha, TRACTOR CRANE OPERATOR.CEMENTING MACHINE OPERATOR [address] [place] [address] Referral ID Status Reason Start Date Expiration Date Visits Requested Visits Authorized [id number] Pending Review PCP Requested Referral 02/07/2022 02/07/2023 1 1 Specialty Diagnoses / Procedures Referred By Contac t Referred To Contact General Surgery Diagnoses Chronic idiopathic constipation Altered bowel habits Procedures CONSULT TO GENERAL SURGERY OFFICE/OUTPATIENT [facility] 60-74 MINUTES Dominique Reese, TRACTOR CRANE OPERATOR.QUALITATIVE FIELD PROJECT MANAGER [address] [place] [address] Referral ID Status Reason Start Date Expiration Date Visits Requested Visits Authorized [id number] Pending Review PCP Requested Referral 04/12/2022 04/12/2023 1 1 Specialty Diagnoses / Procedures Referred By Contac t Referred To Contact Gastroenterology Diagnoses Chronic idiopathic constipation Altered bowel habits Procedures CONSULT TO GASTROENTEROLOGY OFFICE/OUTPATIENT [facility] 60-74 MINUTES Dominique Reese, TRACTOR CRANE OPERATOR.QUALITATIVE FIELD PROJECT MANAGER [address] [place] [address] Referral ID Status Reason Start Date Expiration Date Visits Requested Visits Authorized [id number] Pending Review PCP Requested Referral 04/12/2022 04/12/2023 1 1 Specialty Diagnoses / Procedures Referred By Contac t Referred To Contact CT IMAGING Diagnoses Peripheral vascular disease (HCC) Procedures CTA ABD/PEL LOWER EXTREM W IVCON CTA ABDL AORTA&BI ILIOFEM W/CONTRAST&POSTP Eliza Mallory, DO [address] [place] [address] [place] [address] Referral ID Status Reason Start Date Expiration Date Visits Requested Visits Authorized [id number] Pending Review Auto-Generat ed Referral 05/21/2023 06/12/2024 [...] or prosecute any alcohol or drug abuse patient.[facility] the event this information is protected by the Federal Confidentiality of Alcohol and Drug Abuse Patient Records regulations: The Federal rules restrict any use of the information to criminally investigate or prosecute any alcohol or drug abuse patient.[facility] the event this information is protected by the Federal Confidentiality of Alcohol and Drug Abuse Patient Records regulations: The Federal rules restrict any use of the information to criminally investigate or prosecute any alcohol or drug abuse patient.[facility] the event this information is protected by the Federal Confidentiality of Alcohol and Drug Abuse Patient Records regulations: The Federal rules restrict any use of the information to criminally investigate or prosecute any alcohol or drug abuse patient.[facility] the event this information is protected by the Federal Confidentiality of Alcohol and Drug Abuse Patient Records regulations: The Federal rules restrict any use of the information to criminally investigate or prosecute any alcohol or drug abuse patient.[facility] the event this information is protected by the Federal Confidentiality of Alcohol and Drug Abuse Patient Records regulations: The Federal rules restrict any use of the information to criminally investigate or prosecute any alcohol or drug abuse patient.[facility] the event this information is protected by the Federal Confidentiality of Alcohol and Drug Abuse Patient Records regulations: The Federal rules restrict any use of the information to criminally investigate or prosecute any alcohol or drug abuse patient.[facility] the event this information is protected by the Federal Confidentiality of Alcohol and Drug Abuse Patient Records regulations: The Federal rules restrict any use of the information to criminally investigate or prosecute any alcohol or drug abuse patient.[facility] the event this information is protected by the Federal Confidentiality of Alcohol and Drug Abuse Patient Records regulations: The Federal rules restrict any use of the information to criminally investigate or prosecute any alcohol or drug abuse patient.[facility] the event this information is protected by the Federal Confidentiality of Alcohol and Drug Abuse Patient Records regulations: The Federal rules restrict any use of the information to criminally investigate or prosecute any alcohol or drug abuse patient.[facility] the event this information is protected by the Federal Confidentiality of Alcohol and Drug Abuse Patient Records regulations: The Federal rules restrict any use of the information to criminally investigate or prosecute any alcohol or drug abuse patient.[facility] the event this information is protected by the Federal Confidentiality of Alcohol and Drug Abuse Patient Records regulations: The Federal rules restrict any use of the information to criminally investigate or prosecute any alcohol or drug abuse patient.[facility] the event this information is protected by the Federal Confidentiality of Alcohol and Drug Abuse Patient Records regulations: The Federal rules restrict any use of the information to criminally investigate or prosecute any alcohol or drug abuse patient.[facility] the event this information is protected by the Federal Confidentiality of Alcohol and Drug Abuse Patient Records regulations: The Federal rules restrict any use of the information to criminally investigate or prosecute any alcohol or drug abuse patient.[facility] the event this information is protected by the Federal Confidentiality of Alcohol and Drug Abuse Patient Records regulations: The Federal rules restrict any use of the information to criminally investigate or prosecute any alcohol or drug abuse patient.[facility] the event this information is protected by the Federal Confidentiality of Alcohol and Drug Abuse Patient Records regulations: The Federal rules restrict any use of the information to criminally investigate or prosecute any alcohol or drug abuse patient.[facility] the event this information is protected by the Federal Confidentiality of Alcohol and Drug Abuse Patient Records regulations: The Federal rules restrict any use of the information to criminally investigate or prosecute any alcohol or drug abuse patient.[facility] the event this information is protected by the Federal Confidentiality of Alcohol and Drug Abuse Patient Records regulations: The Federal rules restrict any use of the information to criminally investigate or prosecute any alcohol or drug abuse patient.[facility]In the event this information is protected by the Federal Confidentiality of Alcohol and Drug Abuse Patient Records regulations: The Federal rules restrict any use of the information to criminally investigate or prosecute any alcohol or drug abuse patient.[facility]In the event this information is protected by the Federal Confidentiality of Alcohol and Drug Abuse Patient Records regulations: The Federal rules restrict any use of the information to criminally investigate or prosecute any alcohol or drug abuse patient.[facility] the event this information is protected by the Federal Confidentiality of Alcohol and Drug Abuse Patient Records regulations: The Federal rules restrict any use of the information to criminally investigate or prosecute any alcohol or drug abuse patient.[facility] the event this information is protected by the Federal Confidentiality of Alcohol and Drug Abuse Patient Records regulations: The Federal rules restrict any use of the information to criminally investigate or prosecute any alcohol or drug abuse patient.[facility]In the event this information is protected by the Federal Confidentiality of Alcohol and Drug Abuse Patient Records regulations: The Federal rules restrict any use of the information to criminally investigate or prosecute any alcohol or drug abuse patient.[facility]In the event this information is protected by the Federal Confidentiality of Alcohol and Drug Abuse Patient Records regulations: The Federal rules restrict any use of the information to criminally investigate or prosecute any alcohol or drug abuse patient.[facility]In the event this information is protected by the Federal Confidentiality of Alcohol and Drug Abuse Patient Records regulations: The Federal rules restrict any use of the information to criminally investigate or prosecute any alcohol or drug abuse patient.[facility]In the event this information is protected by the Federal Confidentiality of Alcohol and Drug Abuse Patient Records regulations: The Federal rules restrict any use of the information to criminally investigate or prosecute any alcohol or drug abuse patient.[facility] Reason for Visit (unrecogniz ed section and content) Reason Comments Established Patient Reason Comments Established Patient Nail Care Reason Comments F/U 6 months Reason Comments Hospital F/U Reason Comments Hospital F/U constipation Reason Comments Consult Constipation Specialty Diagnoses / Procedures Referred By Naveen herrera Referred To Contact General Surgery Diagnoses Chronic idiopathic constipation Altered bowel habits Procedures CONSULT TO GENERAL SURGERY OFFICE/OUTPATIENT [facility] MDM 60-74 MINUTES Dominique Reese, TRACTOR CRANE OPERATOR.QUALITATIVE FIELD PROJECT MANAGER [address] [place] [address] Referral ID Status Reason Start Date Expiration Date Visits Requested Visits Authorized [id number] Pending Review PCP Requested Referral 04/12/2022 04/12/2023 1 1 Reason Comments Follow Up Reason Comments Transition Of Care [facility] for shortnes s of breath Reason Comments [...] Care Teams (unrecognized sec tion and content) Police Service Technician Relationship Specialty Start Date End Date Emeka Horn MD [address] [place] [address] PCP - General 07/31/02 Chito Rivero [address] [place] [address] Consulting Pulmonary Disease 06/30/18 Police Service Technician Relationship Specialty Start Date End Date Emeka Horn MD [address] [place] [address] PCP - General 07/31/02 Chito Rivero [address] [place] [address] Consulting Pulmonary Disease 06/30/18 Police Service Technician Relationship Specialty Start Date End Date Emeka Horn MD [address] [place] [address] PCP - General 07/31/02 Chito Rivero [address] [place] [address] Consulting Pulmonary Disease 06/30/18 Police Service Technician Relationship Specialty Start Date End Date mEeka Horn MD [address] [place] [address] PCP - General 07/31/02 [address]ito Rivero [address] [place] [address] Consulting Pulmonary Disease 06/30/18 Police Service Technician Relationship Specialty Start Date End Date Emeka Horn MD [address] [facility] [place] [address] PCP - General 07/31/02 Chito Rivero [address] [place] [address] Consulting Pulmonary Disease 06/30/18 Police Service Technician Relationship Specialty Start Date End Date Emeka Horn MD [address] [facility] [place] [address] PCP - General 07/31/02 Chito Rivero [address] [place] [address] Consulting Pulmonary Disease 06/30/18 Police Service Technician Relationship Specialty Start Date End Date Emeka Horn MD [address] [facility] [place] [address] PCP - General 07/31/02 Chito Rivero [address] [place] [address] Consulting Pulmonary Disease 06/30/18 Police Service Technician Relationship Specialty Start Date End Date Emeka Horn MD [address] [place] [address] PCP - General 07/31/02 Chito Rivero [address] [place] [address] Consulting Pulmonary Disease 06/30/18 Police Service Technician Relationship Specialty Start Date End Date Emeka Horn MD [address] [place] [address] PCP - General 07/31/02 Chito Rivero [address] [place] [address] Consulting Pulmonary Disease 06/30/18 Police Service Technician Relationship Specialty Start Date End Date Emeka Horn MD [address] [place] [address] PCP - General 07/31/02 Chito Rivero [address] [place] [address] Consulting Pulmonary Disease 06/30/18 Police Service Technician Relationship Specialty Start Date End Date Chito Rivero [address] [place] [address] Consulting Pulmonary Disease 06/30/18 Police Service Technician Relationship Specialty Start Date End Date Chito Rivero [address] [place] [address] Consulting Pulmonary Disease 06/30/18 Police Service Technician Relationship Specialty Start Date End Date Chito Rivero [address] [place] [address] Consulting Pulmonary Disease 06/30/18 Police Service Technician Relationship Specialty Start Date End Date Chito Rivero [address] [place] [address] Consulting Pulmonary Disease 06/30/18 Police Service Technician Relationship Specialty Start Date End Date Chito Rivero [address] [place] [address] Consulting Pulmonary Disease 06/30/18 Police Service Technician Relationship Specialty Start Date End Date Chito Rivero [address] [place] [address] Consulting Pulmonary Disease 06/30/18 Police Service Technician Relationship Specialty Start Date End Date Riaz Whitman MD [address] [place] [address] PCP - General Internal Medicine 05/22/23 Chito Rivero MD [address] [place] [address] Consulting Pulmonary Disease 06/30/18 Police Service Technician Relationship Specialty Start Date End Date Riaz Whitman MD [address] [place] [address] PCP - General Internal Medicine 05/22/23 Chito Rivero MD [address] [place] [address] Consulting Pulmonary Disease 06/30/18 Police Service Technician Relationship Specialty Start Date End Date Riaz Whitman MD [address] [place] [address] PCP - General Internal Medicine 05/22/23 Chito Rivero MD [address] [place] [address] Consulting Pulmonary Disease 06/30/18 Police Service Technician Relationship Specialty Start Date End Date Riaz Whitman MD [address] [place] [address] PCP - General Internal Medicine 05/22/23 Chito Rivero MD [address] [place] [address] Consulting Pulmonary Disease 06/30/18 Police Service Technician Relationship Specialty Start Date End Date Riaz Whitman MD [address] [place] [address] PCP - General Internal Medicine 05/22/23 Chito Rivero MD [address] [place] [address] Consulting Pulmonary Disease 06/30/18 Police Service Technician Relationship Specialty Start Date End Date Riaz Whitman MD [address] [place] [address] PCP - General Internal Medicine 05/22/23 Chito Rivero MD [address] [place] [address] Consulting Pulmonary Disease 06/30/18 Police Service Technician Relationship Specialty Start Date End Date Riaz Whitman MD [address] [place] [address] PCP - General Internal Medicine 05/22/23 Chito Rivero MD [address] [place] [address] Consulting Pulmonary Disease 06/30/18 Police Service Technician Relationship Specialty Start Date End Date Riaz Whitman MD [address] [place] [place] [address] PCP - General Internal Medicine 05/22/23 Chito Rivero MD [address] [place] [address] Consulting Pulmonary Disease 06/30/18 (unrecognized sect ion and content) No Status Records FoundNo Status Records FoundNo Status Records Found INFORMATION SOURCE (unrecogn ized section and content) DATE CREATED AUTHOR AUTHOR'S ORGANIZ ATION 11/26/2023 [facility] DATE CREATED AUTHOR AUTHOR'S ORGANIZ ATION 12/13/2023 [facility] FOR RECORDS PERTAINING TO PATIENTS WHO [...] BE BASED ON THE PRIMARY CLINICAL RECORDS. [employer] provides no warranty or guarantee of the accuracy or completeness of information in this document.
== END | disposition home or self-care (01) ==
PROVIDERS: PCP Internal Medicine; Referring Provider Nurse Practitioner; Visit Provider Nurse Practitioner
DX: D64.9 Anemia, unspecified (principal)
CPT/HCPCS: 82274

== ENCOUNTER 2023-12-25 02:01 | Emergency (ER) | payer MEDICARE, SELFPAY ==
[2023-12-25 02:02] VITALS: BP 152/72; PULSE 69; RESP 24; TEMP 36.8; O2SAT 91; BMI 31.4
--- NOTE | 2023-12-25 02:37 | RAD_ITS ---
EXAM: XR CHEST, 2 VIEWS CLINICAL INDICATION: SOB TECHNIQUE: Frontal and lateral views of the chest. COMPARISON: 12/02/23 FINDINGS: LUNGS AND PLEURAL SPACES: No pleural effusion or pneumothorax. Heterogeneous airspace disease involving the mid to lower lungs bilaterally and also the basal portion of the right upper lobe. HEART: Unremarkable. Cardiac silhouette not enlarged. MEDIASTINUM: Central airways and mediastinal contour are unremarkable. BONES/JOINTS: Findings of surgical fixation of a previous right clavicle fracture with no hardware and no residual fracture lucencies. Degenerative changes of-the spine. SOFT TISSUES: Unremarkable. VASCULATURE: Atherosclerotic calcifications of the ectatic thoracic aortic arch. RAD/Chest PA and Lateral IMPRESSION: Patchy opacities bilaterally which raise concern for pneumonia are noted to involve the mid to lower lungs. Electronically Signed: Ba Benoit MD at 4:08 EDT ,
--- NOTE | 2023-12-25 02:38 | ED.VIS.DYS ---
HPI History of Present Illness Chief Complaint: Shortness of Breath Informant: patient, spouse/S.O. and EMS Narrative Narrative: Patient presents with worse dyspnea on exertion than usual for this past day. He could not sleep tonight, and also has been constipated for the last 2 days, feeling like he needs to have a bowel movement but unable to push out more than just a very small piece of hard stool at a time without blood or melena, and for these reasons called EMS for transport to the hospital. Patient states when asked how long he has been dyspnea, 3 years. When attempting to quantify how much worse he is, he states he chronically has cough, occasionally productive of either yellow or white/clear sputum which has been the case today, and he states today, he could only walk 27 feet before having to rest. When asked how far he can walk on a good day, he states 30-40 feet. He denies any chest discomfort, presyncope or syncope. He has had chronic asymmetric lower extremity swelling for couple months, he had vascular surgery on one of his iliacs in the left lower extremity recently, and had an ultrasound done at this facility that showed no DVT. He is on Eliquis because of chronic atrial fibrillation. He denies feeling any palpitations recently. He used albuterol 3 times today by nebulizer machine which helped his breathing, when he was short of breath it seems like he was wheezing and it felt similar to his COPD. Is taking iron supplementation. [facility] Medical History (Updated 12/25/23 @ 05:[address] Elvin Milligan MD) (HFpEF) heart failure with preserved ejection fraction Abdominal aortic aneurysm (AAA) Acute cystitis with hematuria Allergic rhinitis Ambulates with cane Anemia Arthritis Asthma Asthma-COPD overlap syndrome Atherosclerotic heart disease of [place] coronary artery without angina pectoris Back pain BiPAP (biphasic positive airway pressure) dependence Cancer Carotid bruit Chest pain Chronic constipation Chronic cough Colon polyp Colonic mass COPD (chronic obstructive pulmonary disease) Coronary artery disease Daytime hypersomnia DDD (degenerative disc disease), lumbar Debility DM2 (diabetes mellitus, type 2) ALMEIDA (dyspnea on exertion) Dyslipidemia Easy bruising Essential (primary) hypertension Fatigue Former smoker Frequent hospital admissions Gastroesophageal reflux disease History of edema History of heart attack History of hiatal hernia History of irregular heartbeat History of pain when walking History of renal disease History of steroid therapy History of stress test Hoarseness Hyperlipidemia Injury of back Kidney stone Leg cramps Lightheadedness Obstructive sleep apnea MARIXA (obstructive sleep apnea) Overweight Patellar bursitis of right knee Peripheral vascular disease of extremity with claudication Pleural effusion Pneumonia Pre-syncope PVD (peripheral vascular disease) Rectus sheath hematoma Recurrent urinary tract infection Restless legs syndrome Right leg swelling Seasonal allergies Shortness of breath on exertion Sleep apnea Somatic dysfunction of pelvic region Walker as ambulation aid Wears dentures Wears glasses Wears hearing aid Home Medications ammonium lactate 12 % lotion 1 applic topical QD-BID PRN dry skin 02/06/18 [History Last Taken Unknown] handicap placcard #1 ea 09/28/19 [Rx Last Taken Unknown] ascorbate calcium (vitamin C) 500 mg tablet 500 mg PO DAILY Bone strength 05/03/20 [History Last Taken 03/09/22] coenzyme Q10 100 mg capsule (Co Q-10) 100 mg PO DAILY 05/03/20 [History Last Taken Unknown] cholecalciferol (vitamin D3) 100 mcg (4,000 unit) tablet 100 mcg PO DAILY 11/03/20 [History Last Taken Unknown] spacer #1 ea 01/12/21 [Rx Last Taken Unknown] aspirin 81 mg chewable tablet 81 mg PO QHS heart health 05/30/22 [History Last Taken Unknown] nitroglycerin 0.4 mg sublingual tablet (Nitrostat) 0.4 mg sublingual Q5-15M PRN chest pain #25 tabs 06/08/22 [Rx Last Taken Unknown] ipratropium 0.5 mg-albuterol 3 mg (2.5 mg base)/3 mL nebulization soln 3 ml inhalation 4X/DAY PRN PRN shortness of breath or wheezing #90 mL 08/03/22 [Rx Last Taken Unknown] ropinirole 1 mg tablet 1 mg PO QHS #60 tabs 10/18/22 [Rx Last Taken Unknown] furosemide 40 mg tablet 40 mg PO .COMPLEX #180 tabs 04/05/23 [Rx Last Taken Unknown] montelukast 10 mg tablet 10 mg PO QHS Respiratory #90 tabs 04/24/23 [Rx Last Taken Unknown] atorvastatin 40 mg tablet 40 mg PO QODAY cholesterol #45 tabs 05/23/23 [Rx Last Taken Unknown] carvedilol 25 mg tablet 25 mg PO BID #180 tabs 08/17/23 [Rx Last Taken Unknown] dapagliflozin propanediol 10 mg tablet (Farxiga) 10 mg PO DAILY #90 tabs 07/09/23 [Rx Last Taken Unknown] lancets #180 ea 07/18/23 [Rx Last Taken Unknown] isosorbide mononitrate 30 mg tablet,extended release 24 hr 30 mg PO DAILY #90 tabs 07/24/23 [Rx Last Taken Unknown] amlodipine 10 mg tablet 10 mg PO DAILY This is a dose increase #90 tabs 08/28/23 [Rx Last Taken Unknown] spironolactone 25 mg tablet 25 mg PO DAILY 09/12/23 [History Last Taken Unknown] meclizine 25 mg tablet 25 mg PO BID PRN vertigo #60 tabs 09/13/23 [Rx Last Taken Unknown] blood sugar diagnostic ([employer] Ultra Test strips) #180 ea 09/16/23 [Rx Last Taken Unknown] pen needle, diabetic 31 gauge x 1/4 (1st Tier Unifine Pentips) #100 ea 09/16/23 [Rx Last Taken Unknown] albuterol sulfate 90 mcg/actuation aerosol inhaler (Ventolin HFA) 2 inh inhalation Q4H PRN shortness of breath or wheezing #18 grams 10/23/23 [Rx Last Taken Unknown] budesonide-formoterol HFA 160 mcg-4.5 mcg/actuation aerosol inhaler (Symbicort) 2 puff inhalation BID #1 ea 10/23/23 [Rx Last Taken Unknown] doxylamin 12.5 mg-PSE 10 mg-DM 20 mg-acetaminophen 650 mg oral pwdr pk ([place] Plus Cold-Flu) 1 packet PO Q4H PRN 10/23/23 [History Last Taken Unknown] ipratropium bromide 42 mcg (0.06 %) nasal spray 2 spray intranasal TID-QID PRN allergy symptoms #15 mL 10/23/23 [Rx Last Taken Unknown] hydralazine 100 mg tablet See Rx Instructions .Route .COMPLEX #360 tabs 11/06/23 [Rx Last Taken Unknown] insulin glargine 100 unit/mL (3 mL) subcutaneous pen (Lantus Solostar U-100 Insulin) 15 unit (0.15 mL) subcut QAM #40 mL 11/19/23 [Rx Last Taken Unknown] pantoprazole 40 mg tablet,delayed release 40 mg PO DAILY reflux #90 tabs 11/19/23 [Rx Last Taken Unknown] ipratropium bromide 0.02 % solution for inhalation 2.5 ml inhalation Q6H PRN shortness of breath or wheezing #150 mL 12/06/23 [Rx Last Taken Unknown] apixaban 2.5 mg tablet (Eliquis) 2.5 mg PO BID #90 tabs 12/12/23 [Rx Last Taken Unknown] ferrous sulfate 325 mg (65 mg iron) tablet 325 mg PO Q OTHER DAY #30 tabs 12/16/23 [Rx Last Taken Unknown] loratadine 10 mg tablet 10 mg PO DAILY #90 tabs 12/16/23 [Rx Last Taken Unknown] albuterol sulfate 2.5 mg/3 mL (0.083 %) solution for nebulization 2.5 mg (3 mL) inhalation Q4H PRN Sob &/Or Wheezing #180 mL 12/18/23 [Rx Last Taken Unknown] azithromycin 250 mg tablet 250 mg PO DAILY #4 TABLETS 12/25/23 [Rx Last Taken Unknown] prednisone 20 mg tablet 20 mg PO DAILY #4 TABLETS 12/25/23 [Rx Last Taken Unknown] Allergy/AdvReac Type Severity Reaction Status Date / Time cilostazol [From Pletal] Allergy Unknown Verified 12/25/23 02:02 felodipine Allergy Hives Verified 12/25/23 02:02 levofloxacin Allergy Hives Verified 12/25/23 02:02 Sulfa (Sulfonamide Allergy Unknown Verified 12/25/23 02:02 Antibiotics) Family History Father Diabetes Cancer Prostate cancer Mother Dementia Brother Parkinsons Brother Cancer Surgical History H/O aortic aneurysm repair (11/1998) History of coronary artery stent placement (02/17/08) History of endarterectomy (07/2018) History of hernia repair History of left heart catheterization (03/2014) History of surgical procedure History of transurethral resection of prostate History of vascular surgery (08/2018) Social History household members: spouse 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 status: 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 Smoking Status: Former smoker quit date: 08/07/08 pack-years: 2 Tobacco: How many years used: 52 Electronic Cigarette Use: not used how long ago did patient quit smokin years ago alcohol intake: current alcohol intake frequency: holidays/special occasions only details: hx of alcohol abuse substance use type: does not use caffeine: No what type of physical activity do you participate in: other details: Nustep frequency: 5-6 times per week duration: 15-30 minutes/day seatbelt use: always do you feel safe at home: Yes ROS ROS ED Constitutional Constitutional ED: Denies chills or fever(s) Eyes Eyes: Denies change in vision or diplopia ENT ENT ED: Denies rhinorrhea or sore throat Cardiovascular Cardiovascular: Reports edema; Denies chest pain, orthopnea, palpitations or paroxysmal nocturnal dyspnea Respiratory/Chest Respiratory/Chest: Reports cough, dyspnea, dyspnea on exertion, sputum and wheezing; Denies orthopnea or paroxysmal nocturnal dyspnea Gastrointestinal Gastrointestinal: Reports constipation; Denies abdominal pain, diarrhea, nausea or vomiting Genitourinary Genitourinary ED: Denies dysuria or hematuria Musculoskeletal Musculoskeletal: Denies back pain or neck pain Integumentary Denies abscess or rash Neurologic Neurologic: Denies headache(s), paresthesias or weakness Psychiatric Psychiatric: Denies suicidal ideation or suicidal thoughts EXAM Physical Exam Const Vital Signs: 12/25/23 02:02 12/25/23 02:49 12/25/23 04:02 Temperature 98.2 F Temperature Source Temporal Pulse Rate 69 78 71 Respiratory Rate 24 H 27 H 18 Respiratory Effort Respiratory Depth Respiratory Pattern Blood Pressure 152/72 H 149/109 H Blood Pressure Mean 98 122 Pulse Ox 91 95 Oxygen Delivery Method Room Air Room Air 12/25/23 04:10 Temperature Temperature Source Pulse Rate Respiratory Rate Respiratory Effort Normal Non-Labored Respiratory Depth Normal Respiratory Pattern Normal Blood Pressure Blood Pressure Mean Pulse Ox Oxygen Delivery Method Room Air Positive well nourished and well developed General Appearance ED: well developed and NAD HEENT Reports moist mucous membranes normocephalic and atraumatic Eyes PERRL and EOMs intact bilaterally Neck full ROM, supple and no JVD Resp normal respiratory effort and clear to auscultation bilaterally Resp Narrative: Diminished throughout but clear. Speaking in full sentences. Cardio no murmurs Rate: Negative for tachycardic Rhythm: abnormal rhythm irregularly irregular GI non-tender and non-distended GI Narrative: On CLAUDIO, no tenderness, no blood, no melena. No palpable hard stool, just trace of light brown stool. Auscultation: normoactive bowel sounds Palpation: soft Back/Spine no CVA tenderness General Back: other FROM Extremity normal to inspection Extremity Narrative: No calf tenderness. No other tenderness or cellulitis. General Extremety ED: Yes edema; Negative for pulses abnormal or tenderness General Extremity: edema right lower extremity mild and left lower extremity moderate; Negative for pulses abnormal Neuro oriented x3, CN's II-XII intact bilaterally and no sensory deficits noted Sensorium / Orientation: awake and alert Motor Exam: strength 5/5 throughout Psych mental status grossly normal Skin no rashes or lesions noted and no wounds MDM MDM MDM Narrative Medical decision making narrative: Patient's symptoms are mostly consistent with a COPD exacerbation. A 2 view x-ray was obtained and on my interpretation, it shows patchy pneumonia versus increased COPD scarring. Radiology favors pneumonia I read the interpretation. His vital signs are normal for mild hypertension. Separately, he was amenable to a soapsuds enema which resulted in a large amount of bowel movement and he felt much better and actually felt like he breathes much better just after this although a duo nebulizer helped as well. He ambulated down the espinoza, he said he went about as far as he usually does before he starts feeling dyspneic. He went down to 89% while he was walking. When he came back to the room and put him on the monitor he was at 83-84% very briefly until he came up to 90 and he felt much better. No chest discomfort lightheadedness or other symptoms. I offered admission but he declines and really wants to go home. He and agree that this is his baseline as far as how far he can walk without having to rest and get dyspneic. We discussed reasons to return I do not think he needs further emergent workup. I am only going to put him on prednisone 20 mg a day for 5 days given his diabetes and already existing edema in his legs. He is on furosemide which he should continue. I am going to put him on azithromycin given the patchy nature may be an atypical infection if bacterial. Advise close outpatient follow-up and we discussed reasons to return History & Record Review Discussion w/independent historian: EMS personnel, Patient, Family ([id number]) and Significant other Additional record(s) reviewed:: Prior outpatient record (Echocardiogram normal LV systolic function and EF, 05/2023. BLE venous ultrasound last month.) Radiography Diagnostic Testing: Clinical Impression(s) from Imaging Studies Chest X-Ray 12/25/23 02:37 IMPRESSION: Patchy opacities bilaterally which raise concern for pneumonia are noted to involve the mid to lower lungs. Electronically Signed: Ba Benoit MD at 4:08 EDT , Rhythm Strip Rhythm Strip: A-fib Rate: 65 Ectopy: None Discharge Plan Triage Chief Complaint: Shortness of Breath ED Provider: Elvin Milligan Dx/Rx/DC Orders Clinical Impression: Atrial fibrillation with controlled ventricular rate, Acute constipation, Acute exacerbation of chronic obstructive pulmonary disease (COPD), Pneumonia Instructions: ED COPD Flare Prescriptions: New azithromycin [azithromycin] 250 mg tablet 250 mg PO DAILY Qty: 4 0RF prednisone 20 mg tablet 20 mg PO DAILY Qty: 4 0RF No Action ammonium lactate 12 % lotion 1 applic TOPICAL QD-BID PRN (Reason: dry skin ) (DME) handicap placcard Qty: 1 0RF Rx Instructions: Lifetime: debility coenzyme Q10 [Co Q-10] 100 mg capsule 100 mg PO DAILY ascorbate calcium (vitamin C) 500 mg tablet 500 mg PO DAILY cholecalciferol (vitamin D3) 100 mcg (4,000 unit) tablet 100 mcg (4,000 unit) tablet 100 mcg PO DAILY (DME) spacer See Rx Instructions .ROUTE .MEDSUPPLY Qty: 1 0RF Rx Instructions: As directed ropinirole 1 mg tablet 1 mg PO QHS Qty: 60 5RF Rx Instructions: administer 1-3 hours before bedtime [place] Plus Cold-Flu 12.5-10-20-650 mg powder in packet 1 packet PO Q4H PRN Rx Instructions: DNExceed 5 doses/24h albuterol sulfate [Ventolin HFA] 90 mcg/actuation HFA aerosol inhaler 2 inh INHALATION Q4H PRN (Reason: shortness of breath or wheezing) Qty: 18 6RF ipratropium bromide 42 mcg (0.06 %) spray,non-aerosol 2 spray INTRANASAL TID-QID PRN (Reason: allergy symptoms) Qty: 15 6RF Rx Instructions: nasal drip - administer into each nostril; wait 30 seconds between sprays budesonide-formoterol [Symbicort] 160-4.5 mcg/actuation HFA aerosol inhaler 2 puff inhalation BID Qty: 1 3RF Rx Instructions: administer with spacer, rinse mouth after each use meclizine 25 mg tablet 25 mg PO BID PRN (Reason: vertigo) Qty: 60 0RF (DME) [employer] Ultra Test Strip See Rx Instructions .Route Qty: 180 1RF Rx Instructions: Check twice a day. (DME) pen needle, diabetic [1st Tier Unifine Pentips] 31 gauge x 1/4 needle See Rx Instructions .Route Qty: 100 0RF Rx Instructions: daily (DME) lancets Misc See Rx Instructions .Route Qty: 180 1RF Rx Instructions: twice daily Eliquis 2.5 mg tablet 2.5 mg PO BID Qty: 90 1RF ferrous sulfate 325 mg (65 mg iron) tablet 325 mg PO Q OTHER DAY Qty: 30 1RF aspirin 81 mg tablet,chewable 81 mg PO QHS Patient Comments: antiplatelet spironolactone 25 mg tablet 25 mg PO DAILY Patient Comments: TAKE 1 TABLET BY MOUTH DAILY. THIS IS A DOSE INCREASE nitroglycerin [Nitrostat] 0.4 mg tablet, sublingual 0.4 mg SUBLINGUAL Q5-15M PRN (Reason: chest pain) Qty: 25 2RF ipratropium-albuterol 0.5 mg-3 mg(2.5 mg base)/3 mL solution for nebulization 3 ml inhalation 4X/DAY PRN PRN (Reason: shortness of breath or wheezing) Qty: 90 6RF furosemide 40 mg tablet 40 mg PO .COMPLEX Qty: 180 3RF Rx Instructions: 40 mg orally daily. Take 40 mg BID if weight > 190lbs; montelukast 10 mg tablet 10 mg PO QHS Qty: 90 3RF carvedilol 25 mg tablet 25 mg PO BID Qty: 180 3RF Rx Instructions: must administer with a meal/food atorvastatin 40 mg tablet 40 mg PO QODAY Qty: 45 3RF Farxiga 10 mg tablet 10 mg PO DAILY Qty: 90 0RF isosorbide mononitrate 30 mg tablet extended release 24 hr 30 mg PO DAILY Qty: 90 1RF amlodipine 10 mg tablet 10 mg PO DAILY Qty: 90 3RF hydralazine 100 mg tablet See Rx Instructions .ROUTE .COMPLEX Qty: 360 3RF Dose Instruction: TAKE 1 TABLET BY MOUTH THREE TIMES DAILY Rx Instructions: TAKE 1 TABLET BY MOUTH THREE TIMES DAILY pantoprazole 40 mg tablet,delayed release (DR/EC) 40 mg PO DAILY Qty: 90 1RF insulin glargine [Lantus Solostar U-100 Insulin] 100 unit/mL (3 mL) insulin pen 15 unit subcut QAM Qty: 40 1RF ipratropium bromide 0.02 % solution 2.5 ml inhalation Q6H PRN (Reason: shortness of breath or wheezing) Qty: 150 11RF loratadine 10 mg tablet 10 mg PO DAILY Qty: 90 0RF albuterol sulfate 2.5 mg /3 mL (0.083 %) solution for nebulization 2.5 mg inhalation Q4H PRN (Reason: Sob &/Or Wheezing) Qty: 180 11RF Primary Care Provider: Carolynn Whitman Referrals: Carolynn Whitman MD [Primary Care Provider] - 3-5 Days Activity Restrictions/Additional Instructions: Since you received doses in the emergency room of both medications, you may start the prescriptions morning of 12/26/2023 Disposition Disposition: Home, Self Care
[2023-12-25] MEDS: Ipratropium/Albuterol Sulfate 3 ML AMPUL.NEB INHALATION (02:47)
[2023-12-25 02:49] VITALS: PULSE 78; RESP 27
[2023-12-25 04:02] VITALS: BP 149/109; PULSE 71; RESP 18; O2SAT 95
[2023-12-25 04:12] VITALS: O2SAT 90
[2023-12-25] MEDS: predniSONE 20 MG Tablet PO (05:26)
[2023-12-25] MEDS: Azithromycin 250 MG Tablet 500 MG PO (05:26)
== END 2023-12-25 05:47 | disposition home or self-care (01) ==
PROVIDERS: Emergency Provider Emergency Medicine; PCP Internal Medicine; Visit Provider Emergency Medicine
DX: I48.91 Unspecified atrial fibrillation (principal); E11.51 Type 2 diabetes mellitus with diabetic peripheral angiopathy without gangrene; J44.0 Chronic obstructive pulmonary disease with (acute) lower respiratory infection; K59.00 Constipation, unspecified; J18.9 Pneumonia, unspecified organism; Z87.891 Personal history of nicotine dependence
CPT/HCPCS: 71046; 94640; 99284; A4216

== ENCOUNTER → 2023-12-27 | Outpatient (CLI) | payer MEDICARE, SELFPAY ==
[2023-12-27 16:32] LABS: Anion Gap 8 (5-15); BUN 51 mg/dL (7-18); Calcium,Total 8.9 mg/dL (8.5-10.1); Chloride 102 mmol/L (98-107); Creatinine, Serum 2.43 mg/dL (0.70-1.30); EST Glomerular Filtration Rate 27 mL/min (>60); Est Glom Filt Rate - Afr Amer 33 mL/min (>60); Glucose 248 mg/dL (74-106); Potassium 4.4 mmol/L (3.5-5.1); Sodium Level 134 mmol/L (136-145)
[2023-12-27 16:42] LABS: BNP,B-Type NATRIURETIC PEPTIDE 792.3 pg/mL (0-100)
[2023-12-27 16:59] LABS: Absolute Lymphocyte Count 0.66 X10^3/uL (0.83-4.51); Absolute Neutrophil Count 5.7 X10^3/uL (2.0-7.7); Basophil# 0.01 X10^3/uL; Basophil% 0.1 % (0-1); Eosinophil# 0.08 X10^3/uL; Eosinophils% 1.2 % (0-5); Hematocrit 25.3 % (40-54); Hemoglobin 7.4 g/dL (13.0-16.5); Lymphocyte # 0.66 X10^3/ul (0.83-4.51); Lymphocyte % 9.7 % (19-41); Mean Corp Hgb Conc 29.2 g/dL (32-36); Mean Corpuscular Hgb 24.7 pg (27.0-32.0); Mean Corpuscular Volume 84.3 fL (80-94); Mean Platelet Vol. 11.1 fl (6.2-12.0); Monocyte% 4.4 % (0-10); NRBC Flagged by Analyzer 0.3 % (0-5); Neutrophil # 5.72 X10^3/uL (2.7-7.7); Neutrophil % 84.2 % (47-70); Platelet Count 360 K/mm3 (150-450); RBC Distribution Width CV 17.7 % (11.6-14.6); RBC Distribution Width SD 54.2 fl (35.1-43.9); White Blood Count 6.8 K/mm3 (4.4-11.0)
== END | disposition home or self-care (01) ==
LOC: BIMLAB 15:01
PROVIDERS: Nurse Practitioner; PCP Internal Medicine; Visit Provider Nurse Practitioner Gerontology
DX: D64.89 Other specified anemias (principal); I50.32 Chronic diastolic (congestive) heart failure
CPT/HCPCS: 36415; 80048; 83880; 85025

== ENCOUNTER → 2024-01-02 | Outpatient (CLI) | payer MEDICARE, SELFPAY ==
--- NOTE | 2024-01-02 14:26 | RAD_ITS ---
INDICATION: constipation EXAMINATION/TECHNIQUE: X-RAY - XR Abdomen 1 View COMPARISON: None FINDINGS: BOWEL GAS PATTERN: Mildly prominent stool load right colon. No cystic significant colonic distention with stool descending colon are pelvis. No abnormally distended air-filled small bowel loops. FREE AIR: No free air below the diaphragm. ORGANOMEGALY: Not seen. CALCIFICATIONS: Significant vascular calcifications iliac arteries. LOWER CHEST: Lung bases are clear. BONES AND SOFT TISSUES: Multilevel degenerative changes spine. Degenerative changes sacroiliac joints. Surgical clips over the distal abdominal aortic bifurcation and right left femoral arteries. RAD/Abdomen Single View IMPRESSION: Mildly prominent stool load right colon with normal-appearing left colon. Electronically Signed: Bryant Ray DO at 21:18 EDT ,
== END | disposition home or self-care (01) ==
LOC: MTRAD 14:26
PROVIDERS: PCP Internal Medicine; Referring Provider Nurse Practitioner; Visit Provider Nurse Practitioner
DX: K59.00 Constipation, unspecified (principal)
CPT/HCPCS: 74018

== ENCOUNTER → 2024-01-07 | Outpatient (CLI) | payer MEDICARE, SELFPAY ==
[2024-01-07 17:36] LABS: Color, Urine Yellow (Yellow); Glucose, Dipstick 100 mg/dl (Normal); Ketone-Dipstick Negative (Negative); Leukocyte Esterase-Dipstick 500 /ul (Negative); Nitrite-Dipstick Negative (Negative); Occult Blood-Urine Negative /ul (Negative); Protein-Dipstick 15 mg/dl (Negative); Urine Bilirubin Dipstick Negative (Negative); Urine Clarity Clear (Clear); Urine Urobilinogen Normal (Normal); Urine pH 6.5 (5.0 - 8.0)
[2024-01-07 18:26] LABS: Anion Gap 9 (5-15); BUN 48 mg/dL (7-18); Calcium,Total 9.4 mg/dL (8.5-10.1); Chloride 100 mmol/L (98-107); Creatinine, Serum 2.09 mg/dL (0.70-1.30); EST Glomerular Filtration Rate 32 mL/min (>60); Est Glom Filt Rate - Afr Amer 39 mL/min (>60); Glucose 268 mg/dL (74-106); Potassium 3.6 mmol/L (3.5-5.1); Sodium Level 137 mmol/L (136-145)
== END | disposition home or self-care (01) ==
LOC: MTLAB 14:26
PROVIDERS: PCP Internal Medicine; Referring Provider Nurse Practitioner; Visit Provider Nurse Practitioner Gerontology
DX: R06.00 Dyspnea, unspecified (principal); J06.9 Acute upper respiratory infection, unspecified
CPT/HCPCS: 36415; 80048; 81002

== ENCOUNTER → 2024-01-16 | Outpatient (CLI) | payer MEDICARE, SELFPAY ==
[2024-01-16 16:12] LABS: Absolute Lymphocyte Count 1.66 X10^3/uL (0.83-4.51); Absolute Neutrophil Count 5.3 X10^3/uL (2.0-7.7); Basophil# 0.03 X10^3/uL; Basophil% 0.4 % (0-1); Eosinophil# 0.13 X10^3/uL; Eosinophils% 1.7 % (0-5); Hematocrit 29.3 % (40-54); Hemoglobin 8.3 g/dL (13.0-16.5); Lymphocyte # 1.66 X10^3/ul (0.83-4.51); Lymphocyte % 21.3 % (19-41); Mean Corp Hgb Conc 28.3 g/dL (32-36); Mean Corpuscular Hgb 24.1 pg (27.0-32.0); Mean Corpuscular Volume 84.9 fL (80-94); Mean Platelet Vol. 10.4 fl (6.2-12.0); Monocyte# 0.67 X10^3/uL; Monocyte% 8.6 % (0-10); NRBC Flagged by Analyzer 0 % (0-5); Neutrophil # 5.27 X10^3/uL (2.7-7.7); Neutrophil % 67.5 % (47-70); Platelet Count 247 K/mm3 (150-450); RBC Distribution Width CV 17.4 % (11.6-14.6); RBC Distribution Width SD 53.8 fl (35.1-43.9); Red Blood Count 3.45 M/mm3 (4.6-6.2); White Blood Count 7.8 K/mm3 (4.4-11.0)
== END | disposition home or self-care (01) ==
LOC: MTLAB 14:11
PROVIDERS: PCP Internal Medicine; Referring Provider Nurse Practitioner; Visit Provider Nurse Practitioner
DX: D64.89 Other specified anemias (principal)
CPT/HCPCS: 36415; 85025

== ENCOUNTER 2024-01-26 13:08 | Inpatient (IN) | payer MEDICARE, SELFPAY ==
[2024-01-26] VITALS (10 sets, daily range): BP systolic 130–155; BP diastolic 65–80; PULSE 63–90; RESP 18–30; TEMP 36.8–37.1; O2SAT 92–98; BMI 33.2
--- NOTE | 2024-01-26 13:45 | ED.VIS.DYS ---
HPI <DEBI Barraza - Last Filed: 01/26/24 15:54> History of Present Illness Chief Complaint: Shortness of Breath Narrative Narrative: 88-year-old male with PMH of HTN, HLD, DM2, A-fib, PAD, CHF, MARIXA, COPD presents with more dyspnea over the last 2 days. Patient states that he has been dyspneic for several years and has a chronic cough. 1 month ago he was in the ED with dyspnea and was treated with azithromycin and prednisone but states he did not feel better. He followed up with pulmonology and was prescribed additional prednisone with no benefit. His states since yesterday he seems even more winded than usual. He denies fever or increasing cough or sputum production. No chest pain, palpitations or syncope. He has chronic lower extremity swelling and they have been more swollen over the last few weeks. His states he barely gets up and walks. He is on Lasix 40 mg once daily. He takes Eliquis for A-fib. He also has a history of AAA repair and surgery on bilateral iliacs. He does not wear home oxygen. PFS <DEBI Barraza - Last Filed: 01/26/24 15:54> [facility] Medical History (Updated 01/26/24 @ 16:[address] Elvin Milligan MD) (HFpEF) heart failure with preserved ejection fraction Abdominal aortic aneurysm (AAA) Acute cystitis with hematuria Allergic rhinitis Ambulates with cane Anemia Arthritis Asthma Asthma-COPD overlap syndrome Atherosclerotic heart disease of [place] coronary artery without angina pectoris Back pain BiPAP (biphasic positive airway pressure) dependence Cancer Carotid bruit Chest pain Chronic constipation Chronic cough Colon polyp Colonic mass Constipation COPD (chronic obstructive pulmonary disease) Coronary artery disease Daytime hypersomnia DDD (degenerative disc disease), lumbar Debility DM2 (diabetes mellitus, type 2) ALMEIDA (dyspnea on exertion) Dyslipidemia Easy bruising Essential (primary) hypertension Fatigue Former smoker Frequent hospital admissions Gastroesophageal reflux disease History of edema History of heart attack History of hiatal hernia History of irregular heartbeat History of pain when walking History of renal disease History of steroid therapy History of stress test Hoarseness Hyperlipidemia Injury of back Kidney stone Leg cramps Lightheadedness Obstructive sleep apnea MARIXA (obstructive sleep apnea) Overweight Patellar bursitis of right knee Peripheral vascular disease of extremity with claudication Pleural effusion Pneumonia Pre-syncope PVD (peripheral vascular disease) Rectus sheath hematoma Recurrent urinary tract infection Restless legs syndrome Right leg swelling Seasonal allergies Shortness of breath on exertion Sleep apnea Somatic dysfunction of pelvic region Urinary retention Walker as ambulation aid Wears dentures Wears glasses Wears hearing aid Home Medications ammonium lactate 12 % lotion 1 applic topical QD-BID PRN dry skin 02/06/18 [History Last Taken Unknown] handicap placcard #1 ea 09/28/19 [Rx Last Taken Unknown] ascorbate calcium (vitamin C) 500 mg tablet 500 mg PO DAILY Bone strength 05/03/20 [History Last Taken 03/09/22] coenzyme Q10 100 mg capsule (Co Q-10) 100 mg PO DAILY 05/03/20 [History Last Taken Unknown] cholecalciferol (vitamin D3) 100 mcg (4,000 unit) tablet 100 mcg PO DAILY 11/03/20 [History Last Taken Unknown] spacer #1 ea 01/12/21 [Rx Last Taken Unknown] aspirin 81 mg chewable tablet 81 mg PO QHS heart health 05/30/22 [History Last Taken Unknown] nitroglycerin 0.4 mg sublingual tablet (Nitrostat) 0.4 mg sublingual Q5-15M PRN chest pain #25 tabs 06/08/22 [Rx Last Taken Unknown] ipratropium 0.5 mg-albuterol 3 mg (2.5 mg base)/3 mL nebulization soln 3 ml inhalation 4X/DAY PRN PRN shortness of breath or wheezing #90 mL 08/03/22 [Rx Last Taken Unknown] furosemide 40 mg tablet 40 mg PO .COMPLEX #180 tabs 04/05/23 [Rx Last Taken Unknown] montelukast 10 mg tablet 10 mg PO QHS Respiratory #90 tabs 04/24/23 [Rx Last Taken Unknown] atorvastatin 40 mg tablet 40 mg PO QODAY cholesterol #45 tabs 05/23/23 [Rx Last Taken Unknown] carvedilol 25 mg tablet 25 mg PO BID #180 tabs 05/23/23 [Rx Last Taken Unknown] lancets #180 ea 07/18/23 [Rx Last Taken Unknown] amlodipine 10 mg tablet 10 mg PO DAILY This is a dose increase #90 tabs 08/28/23 [Rx Last Taken Unknown] blood sugar diagnostic (Vigiglobe Ultra Test strips) #180 ea 09/16/23 [Rx Last Taken Unknown] budesonide-formoterol HFA 160 mcg-4.5 mcg/actuation aerosol inhaler (Symbicort) 2 puff inhalation BID #1 ea 10/23/23 [Rx Last Taken Unknown] ipratropium bromide 42 mcg (0.06 %) nasal spray 2 spray intranasal TID-QID PRN allergy symptoms #15 mL 10/23/23 [Rx Last Taken Unknown] pantoprazole 40 mg tablet,delayed release 40 mg PO DAILY reflux #90 tabs 11/19/23 [Rx Last Taken Unknown] ipratropium bromide 0.02 % solution for inhalation 2.5 ml inhalation Q6H PRN shortness of breath or wheezing #150 mL 12/06/23 [Rx Last Taken Unknown] apixaban 2.5 mg tablet (Eliquis) 2.5 mg PO BID #90 tabs 12/12/23 [Rx Last Taken Unknown] ferrous sulfate 325 mg (65 mg iron) tablet 325 mg PO Q OTHER DAY #30 tabs 12/16/23 [Rx Last Taken Unknown] loratadine 10 mg tablet 10 mg PO DAILY #90 tabs 12/16/23 [Rx Last Taken Unknown] hydralazine 100 mg tablet 100 mg PO BID #180 tabs 12/26/23 [Rx Last Taken Unknown] albuterol sulfate 90 mcg/actuation aerosol inhaler (Ventolin HFA) 2 inh inhalation Q4H PRN shortness of breath or wheezing #18 grams 01/01/24 [Rx Last Taken Unknown] ipratropium 0.5 mg-albuterol 3 mg (2.5 mg base)/3 mL nebulization soln 3 ml inhalation Q4H PRN PRN SOB &/OR WHEEZING #180 mL 01/01/24 [Rx Last Taken Unknown] magnesium citrate (OneLAX Magnesium Citrate oral solution) 300 ml PO ONCE #296 mL 01/02/24 [Rx Last Taken Unknown] pen needle, diabetic 31 gauge x 1/4 (1st Tier Unifine Pentips) #100 ea 01/15/24 [Rx Last Taken Unknown] insulin glargine 100 unit/mL (3 mL) subcutaneous pen (Lantus Solostar U-100 Insulin) 18 unit subcut QAM 01/20/24 [History Last Taken Unknown] isosorbide mononitrate 30 mg tablet,extended release 24 hr 30 mg PO DAILY #90 tabs 01/22/24 [Rx Last Taken Unknown] Allergy/AdvReac Type Severity Reaction Status Date / Time cilostazol [From Pletal] Allergy Unknown Verified 01/20/24 13:28 felodipine Allergy Hives Verified 01/20/24 13:28 levofloxacin Allergy Hives Verified 01/20/24 13:28 Sulfa (Sulfonamide Allergy Unknown Verified 01/20/24 13:28 Antibiotics) Family History Father Diabetes Cancer Prostate cancer Mother Dementia Brother Parkinsons Brother Cancer Surgical History (Updated 01/20/24 @ 13:[address] Carolynn Whitman MD) H/O aortic aneurysm repair (11/1998) H/O vascular surgery History of coronary artery stent placement (02/17/08) History of endarterectomy (07/2018) History of hernia repair History of left heart catheterization (03/2014) History of surgical procedure History of transurethral resection of prostate History of vascular surgery (08/2018) Social History (Updated 01/20/24 @ 13:[address] 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 Smoking Status: Former smoker quit date: 08/07/08 pack-years: 2 Tobacco: How many years used: 52 Electronic Cigarette Use: not used how long ago did patient quit smokin years ago alcohol intake: current alcohol intake frequency: holidays/special occasions only details: hx of alcohol abuse substance use type: does not use caffeine: No what type of physical activity do you participate in: other details: Nustep frequency: 5-6 times per week duration: 15-30 minutes/day seatbelt use: always do you feel safe at home: Yes ROS <DEBI Barraza - Last Filed: 01/26/24 15:54> ROS ED ROS Narrative Constitutional: Negative for fever, chills, malaise. CVS: Negative for palpitations, chest pain, syncope. Respiratory: Positive for shortness of breath, chronic cough. GI: Negative for abdominal pain, nausea, vomiting. EXAM <DEBI Barraza - Last Filed: 01/26/24 15:54> Physical Exam Narrative Exam Narrative: CONST: Patient sitting in no acute distress. EYES: Normal inspection. NECK: Normal inspection. RESP: Tachypneic around 24/minute, diminished lung sounds. CVS: Regular rate and rhythm, no murmur, no gallop. Back: Normal inspection, no CVA tenderness. SKIN: Color normal, no rash, warm, dry, intact. EXTREMITIES: Significant symmetric pitting edema both lower extremities, no warmth or skin changes. NEURO: Alert and answering questions appropriately. PSYCH: Normal affect. Const Vital Signs: 01/26/24 13:10 01/26/24 14:38 01/26/24 14:38 Temperature 98.3 F Temperature Source Oral Pulse Rate 63 69 Respiratory Rate 26 H 20 H Respiratory Effort Respiratory Depth Respiratory Pattern Tachypnea Blood Pressure 130/68 H Blood Pressure Mean 88 Pulse Ox 92 93 Oxygen Delivery Method Room Air Room Air 01/26/24 15:12 01/26/24 15:00 Temperature Temperature Source Pulse Rate 68 Respiratory Rate 30 H Respiratory Effort Short of Breath Respiratory Depth Normal Respiratory Pattern Tachypnea Blood Pressure 132/65 H Blood Pressure Mean 87 Pulse Ox 98 Oxygen Delivery Method Room Air Room Air <Dr. Elvin Milligan MD - Last Filed: 01/26/24 17:00> Physical Exam Const Vital Signs: 01/26/24 13:10 01/26/24 14:38 01/26/24 14:38 Temperature 98.3 F Temperature Source Oral Pulse Rate 63 69 Respiratory Rate 26 H 20 H Respiratory Effort Respiratory Depth Respiratory Pattern Tachypnea Blood Pressure 130/68 H Blood Pressure Mean 88 Pulse Ox 92 93 Oxygen Delivery Method Room Air Room Air 01/26/24 15:12 01/26/24 15:00 Temperature Temperature Source Pulse Rate 68 Respiratory Rate 30 H Respiratory Effort Short of Breath Respiratory Depth Normal Respiratory Pattern Tachypnea Blood Pressure 132/65 H Blood Pressure Mean 87 Pulse Ox 98 Oxygen Delivery Method Room Air Room Air MDM <DEBI Barraza - Last Filed: 01/26/24 15:54> [facility] Narrative Medical decision making narrative: History gathered from: Patient and Differential: COPD, CHF, pneumonia, ACS Patient with longstanding history of dyspnea has had worsening dyspnea over the last few days. He appears well and nontoxic. He is mildly tachypneic but able to converse. There are some Tory rhonchi and diminished lung sounds. He has 3+ bilateral lower extremity edema. Workup shows white count of 6.0. Hemoglobin of 7.6 is around baseline which runs between 7?8. He has normal electrolytes. Creatinine 2.30 is consistent with his CKD. Troponin is normal at 15. BNP 790 around baseline. CXR is read as bilateral pleural effusions and bilateral infiltrates; however I doubt he has acute pneumonia as he has had no change in his cough, no fever, no leukocytosis. Over the last month he is also taken an antibiotic and steroids x 2 without improvement. I suspect his dyspnea is multifactorial from underlying pulmonary process/COPD and congestive heart failure. Patient was able to ambulate about 10 feet and did not become hypoxic but became very dyspneic and tachypneic around 30 breaths/minute and had to sit down. He will need admitted for further workup. Case was discussed with the hospitalist. Lab Data Attestation: I reviewed the patient's lab results. Labs: Laboratory Results - last 24 hr 01/26/24 13:40 WBC 6.0 RBC 3.05 L Hgb 7.6 L Hct 26.2 L MCV 85.9 MCH 24.9 L MCHC 29.0 L RDW Std Deviation 53.1 H RDW Coeff of Justin 17.1 H Plt Count 257 MPV 10.5 Immature Gran % (Auto) 0.500 Neut % (Auto) 68.3 Lymph % (Auto) 18.5 L [place] % (Auto) 10.2 H Eos % (Auto) 2.2 Baso % (Auto) 0.3 Absolute Neuts (auto) 4.1 Absolute Lymphs (auto) 1.10 Nucleated RBC % 0 Sodium 137 Potassium 3.8 Chloride 98 Carbon Dioxide 32.0 Anion Gap 7 BUN 35 H Creatinine 2.30 H Estim Creat Clear Calc 26.32 Est GFR (MDRD) Af Amer 35 L Est GFR (MDRD) Non-Af 29 L BUN/Creatinine Ratio 15.2 Glucose 282 H Calcium 8.8 Troponin I High Sens 15 B-Natriuretic Peptide 790.9 H Radiography Diagnostic Testing: Clinical Impression(s) from Imaging Studies Chest X-Ray 01/26/24 14:10 IMPRESSION: There are bilateral pleural effusions. There are bilateral infiltrates. Electronically Signed: Vinod Castillo MD at 14:24 EDT , <Dr. Elvin Milligan MD - Last Filed: 01/26/24 17:00> [facility] History & Record Review Additional record(s) reviewed:: Prior outpatient record (PFTs) Lab Data Labs: Laboratory Results - last 24 hr 01/26/24 13:40 WBC 6.0 RBC 3.05 L Hgb 7.6 L Hct 26.2 L MCV 85.9 MCH 24.9 L MCHC 29.0 L RDW Std Deviation 53.1 H RDW Coeff of Justin 17.1 H Plt Count 257 MPV 10.5 Immature Gran % (Auto) 0.500 Neut % (Auto) 68.3 Lymph % (Auto) 18.5 L [place] % (Auto) 10.2 H Eos % (Auto) 2.2 Baso % (Auto) 0.3 Absolute Neuts (auto) 4.1 Absolute Lymphs (auto) 1.10 Nucleated RBC % 0 Sodium 137 Potassium 3.8 Chloride 98 Carbon Dioxide 32.0 Anion Gap 7 BUN 35 H Creatinine 2.30 H Estim Creat Clear Calc 26.32 Est GFR (MDRD) Af Amer 35 L Est GFR (MDRD) Non-Af 29 L BUN/Creatinine Ratio 15.2 Glucose 282 H Calcium 8.8 Troponin I High Sens 15 B-Natriuretic Peptide 790.9 H Radiography Diagnostic Testing: Clinical Impression(s) from Imaging Studies Chest X-Ray 01/26/24 14:10 IMPRESSION: There are bilateral pleural effusions. There are bilateral infiltrates. Electronically Signed: Vinod Castillo MD at 14:24 EDT , Management Discussion w/another healthcare provider: Hospitalist Additional Tests and Interventions Additional Tests or Interventions: I have personally performed a face to face assessment of the patient and have reviewed the AIDA Note. I performed a substantive portion of the visit including all aspects of the following. My dumont findings include: History is progressively worsening dyspnea especially in the last several days. Patient can walk 10 feet or less before having to stop. No exertional chest discomfort. No cough or fevers. Seen here 1 month ago for same and declined admission, has followed up with PCP and pulmonary in the meantime and due to see nephrology this coming week, and cardiology in March. Was prescribed prednisone x 2 courses, neither helped. Antibiotics did not help. Feeling weak, more trouble getting up and around due to this and increased bilateral lower extremity edema, with 15 pound weight gain recently. Exam is expiratory rhonchi bilaterally and diffusely, high-pitched. Does not sound wet. No wheezes. Mildly tachypneic but in no respiratory distress and able to converse while at rest. No JVD. Heart regular systolic murmur present. 3+ bilateral lower extremity significant pitting edema that is symmetric. No sign of cellulitis. Medical Decison Making renal function, chest x-ray, EKG, duo nebulizer treatment, will walk without oxygen since he is on no home oxygen and likely admit. Concern is for interstitial lung disease, pulm fibrosis, vs. COPD-related dyspnea, but he has not responded recently to typical outpatient COPD treatments. Last PFT in 2017 shows severe COPD pattern/defect. On my interpretation, 2 view CXR shows what appear to be chronic bibasilar abnormalities/airspace disease w/ small pleural effusion on left. Unchanged c/w prior. I do not think this represents acute pneumonia so holding off on further antibiotic therapy at this time. Other additions or changes: [None] Discharge Plan Triage Chief Complaint: Shortness of Breath ED Midlevel Provider: Aaliyah Collins ED Provider: Elvin Milligan Dx/Rx/DC Orders Clinical Impression: Acute respiratory insufficiency, Bilateral edema of lower extremity, Chronic anemia, Chronic kidney disease Primary Care Provider: Carolynn Whitman
[2024-01-26 14:00] LABS: Absolute Neutrophil Count 4.1 X10^3/uL (2.0-7.7); Basophil# 0.02 X10^3/uL; Basophil% 0.3 % (0-1); Eosinophil# 0.13 X10^3/uL; Eosinophils% 2.2 % (0-5); Hematocrit 26.2 % (40-54); Hemoglobin 7.6 g/dL (13.0-16.5); Lymphocyte % 18.5 % (19-41); Mean Corpuscular Hgb 24.9 pg (27.0-32.0); Mean Corpuscular Volume 85.9 fL (80-94); Mean Platelet Vol. 10.5 fl (6.2-12.0); Monocyte# 0.61 X10^3/uL; Monocyte% 10.2 % (0-10); NRBC Flagged by Analyzer 0 % (0-5); Neutrophil # 4.07 X10^3/uL (2.7-7.7); Neutrophil % 68.3 % (47-70); Platelet Count 257 K/mm3 (150-450); RBC Distribution Width CV 17.1 % (11.6-14.6); RBC Distribution Width SD 53.1 fl (35.1-43.9); Red Blood Count 3.05 M/mm3 (4.6-6.2)
[2024-01-26 14:10] LABS: BNP,B-Type NATRIURETIC PEPTIDE 790.9 pg/mL (0-100)
--- NOTE | 2024-01-26 14:10 | RAD_ITS ---
STUDY: XR Chest 2 Views 01/26/2024 2:15 PM REASON FOR EXAM: Male, 88 years old. dyspnea COMPARISON: 3.20.24 TECHNIQUE: XR Chest 2 Views FINDINGS: There are bilateral pleural effusions. There are bilateral infiltrates. Coronary artery stent grafts. Metal plate and screws transfixing the right clavicle. Enlarged heart size. Normal mediastinum. Normal frank. Prominent appearing increased interstitial lung markings. Normal visualized pulmonary arteries. There is atherosclerotic calcification of the aortic arch with tortuosity. There are diffuse degenerative changes of the visualized thoracic spine. There is degenerative osteoarthritis of the bilateral shoulders. There are no acute findings of the upper abdomen. RAD/Chest PA and Lateral IMPRESSION: There are bilateral pleural effusions. There are bilateral infiltrates. Electronically Signed: Vinod Castillo MD at 14:24 EDT ,
[2024-01-26] MEDS: Ipratropium/Albuterol Sulfate 3 ML AMPUL.NEB INHALATION (14:36)
[2024-01-26 15:00] LABS: Anion Gap 7 (5-15); BUN 35 mg/dL (7-18); BUN/Creat Ratio 15.2 RATIO (10-20); Calcium,Total 8.8 mg/dL (8.5-10.1); Chloride 98 mmol/L (98-107); EST Glomerular Filtration Rate 29 mL/min (>60); Est Glom Filt Rate - Afr Amer 35 mL/min (>60); Estimated Creatinine Clearance 26.32 ml/min; Glucose 282 mg/dL (74-106); Potassium 3.8 mmol/L (3.5-5.1); Sodium Level 137 mmol/L (136-145); Troponin-I HS 15 pg/mL (3.0-78.0)
--- NOTE | 2024-01-26 15:51 | NURSING ---
DR OMA REYES
--- NOTE | 2024-01-26 15:57 | NURSING ---
MED SURG OMA DYSPNEA, TACHYPEA
--- NOTE | 2024-01-26 16:08 | PCM.HP.STD ---
[facility] - General General Date of Admission: 01/26/24 Date of Service: 01/26/24 Chief Complaint: Shortness of breath HPI Narrative DESIREE ROSAS, is a 88 M with past medical history of HTN, HLD, DM2, A-fib, PAD, CHF, MARIXA, COPD coronary artery disease with angioplasty and stenting of his RCA with mild residual disease in his distal RCA who presents to the ED with concerns regarding progressive shortness of breath since the last few months, worse over the last few days. Notes that the symptoms did not improve after recent courses therapy given by his school clerk and reported from prior ED visits. Per the the decline has been very gradual and there is no sudden episodes of fever/changes in cough or expectoration/medication noncompliance. He recently saw his school clerk for similar concerns, his main concern is shortness of breath, decreased functionality and is not able to walk as much as before. Has increased frequency of his nebulizer treatments but they were not helpful. He completed a course of corticosteroids prescribed in the ED from December 24 to December 25 2023. There were concerns regarding COPD exacerbation, NIOX procedure was performed and results are elevated suggesting that he would benefit from systemic steroids. He was started on prednisone 40 mg for 3 days followed by 30 for 3 days 20 for 3 days and 10 mg for 3 days. Also started on a course of Augmentin. From a cardiac standpoint his stress test was negative in 11/26 to 05/26/2022, and his ejection fraction was 65% on 05/14/2023. He is on carvedilol 25 mg twice daily, furosemide 40 mg daily, spironolactone 25 daily [facility] Medical History (Updated 01/26/24 @ 15:54 by DEBI Barraza) (HFpEF) heart failure with preserved ejection fraction Abdominal aortic aneurysm (AAA) Acute cystitis with hematuria Allergic rhinitis Ambulates with cane Anemia Arthritis Asthma Asthma-COPD overlap syndrome Atherosclerotic heart disease of [place] coronary artery without angina pectoris Back pain BiPAP (biphasic positive airway pressure) dependence Cancer Carotid bruit Chest pain Chronic constipation Chronic cough Colon polyp Colonic mass Constipation COPD (chronic obstructive pulmonary disease) Coronary artery disease Daytime hypersomnia DDD (degenerative disc disease), lumbar Debility DM2 (diabetes mellitus, type 2) ALMEIDA (dyspnea on exertion) Dyslipidemia Easy bruising Essential (primary) hypertension Fatigue Former smoker Frequent hospital admissions Gastroesophageal reflux disease History of edema History of heart attack History of hiatal hernia History of irregular heartbeat History of pain when walking History of renal disease History of steroid therapy History of stress test Hoarseness Hyperlipidemia Injury of back Kidney stone Leg cramps Lightheadedness Obstructive sleep apnea MARIXA (obstructive sleep apnea) Overweight Patellar bursitis of right knee Peripheral vascular disease of extremity with claudication Pleural effusion Pneumonia Pre-syncope PVD (peripheral vascular disease) Rectus sheath hematoma Recurrent urinary tract infection Restless legs syndrome Right leg swelling Seasonal allergies Shortness of breath on exertion Sleep apnea Somatic dysfunction of pelvic region Urinary retention Walker as ambulation aid Wears dentures Wears glasses Wears hearing aid Home Medications ammonium lactate 12 % lotion 1 applic topical QD-BID PRN dry skin 02/06/18 [History Last Taken Unknown] handicap placcard #1 ea 09/28/19 [Rx Last Taken Unknown] ascorbate calcium (vitamin C) 500 mg tablet 500 mg PO DAILY Bone strength 05/03/20 [History Last Taken 03/09/22] coenzyme Q10 100 mg capsule (Co Q-10) 100 mg PO DAILY 05/03/20 [History Last Taken Unknown] cholecalciferol (vitamin D3) 100 mcg (4,000 unit) tablet 100 mcg PO DAILY 11/03/20 [History Last Taken Unknown] spacer #1 ea 01/12/21 [Rx Last Taken Unknown] aspirin 81 mg chewable tablet 81 mg PO QHS heart health 05/30/22 [History Last Taken Unknown] nitroglycerin 0.4 mg sublingual tablet (Nitrostat) 0.4 mg sublingual Q5-15M PRN chest pain #25 tabs 06/08/22 [Rx Last Taken Unknown] ipratropium 0.5 mg-albuterol 3 mg (2.5 mg base)/3 mL nebulization soln 3 ml inhalation 4X/DAY PRN PRN shortness of breath or wheezing #90 mL 08/03/22 [Rx Last Taken Unknown] furosemide 40 mg tablet 40 mg PO .COMPLEX #180 tabs 04/05/23 [Rx Last Taken Unknown] montelukast 10 mg tablet 10 mg PO QHS Respiratory #90 tabs 04/24/23 [Rx Last Taken Unknown] atorvastatin 40 mg tablet 40 mg PO QODAY cholesterol #45 tabs 05/23/23 [Rx Last Taken Unknown] carvedilol 25 mg tablet 25 mg PO BID #180 tabs 05/23/23 [Rx Last Taken Unknown] lancets #180 ea 07/18/23 [Rx Last Taken Unknown] amlodipine 10 mg tablet 10 mg PO DAILY This is a dose increase #90 tabs 08/28/23 [Rx Last Taken Unknown] blood sugar diagnostic (Neonode Ultra Test strips) #180 ea 09/16/23 [Rx Last Taken Unknown] budesonide-formoterol HFA 160 mcg-4.5 mcg/actuation aerosol inhaler (Symbicort) 2 puff inhalation BID #1 ea 10/23/23 [Rx Last Taken Unknown] ipratropium bromide 42 mcg (0.06 %) nasal spray 2 spray intranasal TID-QID PRN allergy symptoms #15 mL 10/23/23 [Rx Last Taken Unknown] pantoprazole 40 mg tablet,delayed release 40 mg PO DAILY reflux #90 tabs 11/19/23 [Rx Last Taken Unknown] ipratropium bromide 0.02 % solution for inhalation 2.5 ml inhalation Q6H PRN shortness of breath or wheezing #150 mL 12/06/23 [Rx Last Taken Unknown] apixaban 2.5 mg tablet (Eliquis) 2.5 mg PO BID #90 tabs 12/12/23 [Rx Last Taken Unknown] ferrous sulfate 325 mg (65 mg iron) tablet 325 mg PO Q OTHER DAY #30 tabs 12/16/23 [Rx Last Taken Unknown] loratadine 10 mg tablet 10 mg PO DAILY #90 tabs 12/16/23 [Rx Last Taken Unknown] hydralazine 100 mg tablet 100 mg PO BID #180 tabs 12/26/23 [Rx Last Taken Unknown] albuterol sulfate 90 mcg/actuation aerosol inhaler (Ventolin HFA) 2 inh inhalation Q4H PRN shortness of breath or wheezing #18 grams 01/01/24 [Rx Last Taken Unknown] ipratropium 0.5 mg-albuterol 3 mg (2.5 mg base)/3 mL nebulization soln 3 ml inhalation Q4H PRN PRN SOB &/OR WHEEZING #180 mL 01/01/24 [Rx Last Taken Unknown] magnesium citrate (OneLAX Magnesium Citrate oral solution) 300 ml PO ONCE #296 mL 01/02/24 [Rx Last Taken Unknown] pen needle, diabetic 31 gauge x 1/4 (1st Tier Unifine Pentips) #100 ea 01/15/24 [Rx Last Taken Unknown] insulin glargine 100 unit/mL (3 mL) subcutaneous pen (Lantus Solostar U-100 Insulin) 18 unit subcut QAM 01/20/24 [History Last Taken Unknown] isosorbide mononitrate 30 mg tablet,extended release 24 hr 30 mg PO DAILY #90 tabs 01/22/24 [Rx Last Taken Unknown] Allergy/AdvReac Type Severity Reaction Status Date / Time cilostazol [From Pletal] Allergy Unknown Verified 01/20/24 13:28 felodipine Allergy Hives Verified 01/20/24 13:28 levofloxacin Allergy Hives Verified 01/20/24 13:28 Sulfa (Sulfonamide Allergy Unknown Verified 01/20/24 13:28 Antibiotics) Family History Father Diabetes Cancer Prostate cancer Mother Dementia Brother Parkinsons Brother Cancer Surgical History (Updated 01/20/24 @ 13:[address] Carolynn Whitman MD) H/O aortic aneurysm repair (11/1998) H/O vascular surgery History of coronary artery stent placement (02/17/08) History of endarterectomy (07/2018) History of hernia repair History of left heart catheterization (03/2014) History of surgical procedure History of transurethral resection of prostate History of vascular surgery (08/2018) Social History (Updated 01/20/24 @ 13:[address] 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 Smoking Status: Former smoker quit date: 08/07/08 pack-years: 2 Tobacco: How many years used: 52 Electronic Cigarette Use: not used how long ago did patient quit smokin years ago alcohol intake: current alcohol intake frequency: holidays/special occasions only details: hx of alcohol abuse substance use type: does not use caffeine: No what type of physical activity do you participate in: other details: Nustep frequency: 5-6 times per week duration: 15-30 minutes/day seatbelt use: always do you feel safe at home: Yes ROS Review of Systems ROS Unobtainable: Denies due to encephalopathy, due to endotracheal tube, due to mental condition, due to mental status or other Constitutional Constitutional: Reports change in weight, fatigue, malaise and weakness Eyes Eyes: Denies blurry vision, change in eye color, change in vision, discharge from eye(s), double vision, erythema, eye pain, loss of vision or other ENT HEENT: Denies abnormal hearing, dysphagia, ear pain, epistaxis, headache(s), hearing loss, nasal congestion, nasal discharge, post nasal drip, sinus pressure, sore throat or other Cardiovascular Cardiovascular: Denies chest pain, claudication, dyspnea on exertion, edema, lightheadedness, orthopnea, palpitations, paroxysmal nocturnal dyspnea, rapid heart rate, syncope or other Respiratory/Chest Respiratory/Chest: Reports shortness of breath at rest, shortness of breath with exertion and wheezing Gastrointestinal Gastrointestinal: Denies abdominal pain, coffee ground emesis, constipation, diarrhea, dyspepsia, hematemesis, hematochezia, loose stools, melena, nausea, vomiting or other Genitourinary Genitourinary: Denies burning urination, difficulty urinating, dysuria, hematuria, nocturia, urinary frequency, urinary hesitancy, urinary incontinence, urinary urgency or other Musculoskeletal Musculoskeletal: Reports arthralgias and back pain Neurologic Neurologic: Denies abnormal gait, abnormal speech, confusion, disequilibrium, dizziness, focal weakness, headache(s), numbness, paresthesias, seizure-like activity, seizures, syncope, tingling, tremor(s) or other Psychiatric Psychiatric: Denies anxiety, depression, homicidal ideation, suicidal ideation or other Endocrine Endocrinology: Denies change in body appearance, cold intolerance, excessive sweating, heat intolerance, polydipsia, polyuria or other Hematologic/Lymphatic Hematologic/Lymphatic: Denies anemia, easy bleeding, easy bruising, lymphadenopathy or other Allergic/Immunologic Allergic/Immunologic: Denies rhinitis, hives, eczemia, asthma or other Vital Signs Vital Signs Vital Signs: 01/26/24 13:10 01/26/24 14:38 01/26/24 14:38 Temperature 98.3 F Temperature Source Oral Pulse Rate 63 69 Respiratory Rate 26 H 20 H Respiratory Pattern Tachypnea Blood Pressure 130/68 H Blood Pressure Mean 88 Pulse Ox 92 93 Oxygen Delivery Method Room Air Room Air 01/26/24 15:12 Temperature Temperature Source Pulse Rate 68 Respiratory Rate 30 H Respiratory Pattern Blood Pressure 132/65 H Blood Pressure Mean 87 Pulse Ox 98 Oxygen Delivery Method Room Air Weight Weight: 218 lb 11.177 oz Body Mass Index (BMI) 33.2 Physical Exam Const alert and oriented x3 HEENT normocephalic Eyes PERRL Neck no lymphadenopathy Resp Resp Narrative: Bilateral Rales present, more pronounced in the right interscapular region Auscultation: crackles and rales Cardio Cardio Narrative: Irregularly irregular heart rate GI normal to inspection, nondistended, normoactive bowel sounds Extremity Extremity Narrative: Bilateral pitting edema extending up to the knees Neuro oriented x3 Results Medical Records Data Attestation: I reviewed the patient's medical records Lab / Micro Data Attestation: I reviewed the patient's lab results. 01/26/24 13:40 01/26/24 13:40 Labs: Laboratory Results - last 24 hr 01/26/24 13:40: WBC 6.0, RBC 3.05 L, Hgb 7.6 L, Hct 26.2 L, MCV 85.9, MCH 24.9 L, MCHC 29.0 L, RDW Std Deviation 53.1 H, RDW Coeff of Justin 17.1 H, Plt Count 257, MPV 10.5, Immature Gran % (Auto) 0.500, Neut % (Auto) 68.3, Lymph % (Auto) 18.5 L, [place] % (Auto) 10.2 H, Eos % (Auto) 2.2, Baso % (Auto) 0.3, Absolute Neuts (auto) 4.1, Absolute Lymphs (auto) 1.10, Nucleated RBC % 0, Sodium 137, Potassium 3.8, Chloride 98, Carbon Dioxide 32.0, Anion Gap 7, BUN 35 H, Creatinine 2.30 H, Estim Creat Clear Calc 26.32, Est GFR (MDRD) Af Amer 35 L, Est GFR (MDRD) Non-Af 29 L, BUN/Creatinine Ratio 15.2, Glucose 282 H, Calcium 8.8, Troponin I High Sens 15, B-Natriuretic Peptide 790.9 H Imaging Radiology Impression Chest X-Ray 01/26/24 14:10 IMPRESSION: There are bilateral pleural effusions. There are bilateral infiltrates. Electronically Signed: Vinod Castillo MD at 14:24 EDT , Assessment & Plan Assessment/Plan (1) Chronic kidney disease: PLAN: Plan 88-year-old man with history of COPD, A-fib with RVR, HFrEF, prior coronary artery disease, MARIXA presents to the ED with progressive worsening shortness of breath and decline in his functional status. The likely reason for his presentation is multifactorial, symptoms are not consistent with an acute exacerbation of COPD [no changes in cough, no sudden decline in shortness of breath, no desaturation]. It is likely due to ADHF on HFrEF secondary to A-fib or Pulmonary hypertension 2/2 COPD. #HFrEF: -Echocardiogram to reassess cardiac status and to rule out pulmonary hypertension -IV Lasix 40 mg twice daily [close monitor creatinine] - Restart Spironolactone and lasix #COPD: - Continue albuterol 90 mcg -Continue Symbicort 2 puff twice daily -Will hold off starting steroids at present given no features of acute respiratory deterioration - PT/OT and Case management consult #Hypertension: -Continue tab amlodipine 10 mg daily -Hydralazine 100 mg twice daily #A-fib: # Afib: Presently rate is well controlled -Continue apixaban 2.5 mg twice daily -Type carvedilol 25 mg twice daily # Prior CAD: Last stress test was negative for ischemia -Aspirin 81 mg daily -Atorvastatin 40 mg daily -Continue isosorbide mononitrate 30 mg # MARIXA: Continue bipap at home settings, consider outpatient reevaluation after discharge #Type 2 diabetes: -Continue insulin glargine 18 units subcu in the a.m. -Close sugar monitoring -Insulin sliding scale #GERD continue pantoprazole daily #CKD: creatinine at baseline at present. Continue to monitor after initiation of the diuretics # DVT: Low risk given the active anticoagulation for Afib. Charges/Coding Visit Charges Inpatient E&M: 07775 Init Hosp L2
--- NOTE | 2024-01-26 17:13 | ECHOD_ITS ---
Reason For Study: Afib/Flutter Procedure This was a 2D Doppler, Color Flow transthoracic echocardiogram. Exam performed portable in patient room. Left Ventricle Normal LV size. The estimated ejection fraction is 55 %. Unable to assess diastolic dysfunction. No regional wall motion abnormalities noted. Right Ventricle Normal RV size. Normal systolic function. Atria The left atrium is mildly enlarged. The right atrium is mildly enlarged. No doppler evidence for ASD. Mitral Valve There is severe mitral annular calcification. There is no mitral valve stenosis. Trivial mitral valve insufficiency. Tricuspid Valve There is no tricuspid stenosis. Trivial tricuspid valve insufficiency. Unable to estimate RV systolic pressure due to insufficient tricuspid regurgitant envelope. Aortic Valve Trisinus/trileaflet aortic valve. Aortic sclerosis, no stenosis. There is no aortic stenosis. No aortic valve insufficiency. Pulmonic Valve There is no pulmonic valvular stenosis. No pulmonic valve insufficiency. Great Vessels Normal aortic root. Pericardium/Pleural No pericardial effusion. MMode/2D Measurements & Calculations LVIDd: 5.6 cm IVSd: 1.0 cm Ao root diam: 3.3 cm LVIDs: 4.1 cm LVPWd: 1.0 cm LA dimension: 4.8 cm RVDd: 2.8 cm FS: 26.1 % LAV(MOD-bp): 99.1 ml LA A4 area: 29.0 cm2 RA A4 area: 27.1 cm2 LAV(MOD-bp) Indexed: 46.7 ml/m2 LAV(MOD-sp2): 95.2 ml LAV(MOD-sp4): 98.4 ml Doppler Measurements & Calculations MV E max juaquin: 129.1 cm/sec Lat Peak E' Juaquin: 13.1 cm/sec Med Peak E' Juaquin: 8.0 cm/sec E/E' lat: 9.9 E/E' med: 16.1 MV V2 max: 151.3 cm/sec Ao V2 max: 159.3 cm/sec LV V1 max: 83.8 cm/sec MV max P.2 mmHg Ao max P.2 mmHg LV V1 max P.8 mmHg MV V2 mean: 69.9 cm/sec Ao V2 mean: 99.8 cm/sec LV V1 mean P.5 mmHg MV mean P.6 mmHg Ao mean P.7 mmHg LV V1 mean: 58.3 cm/sec MV V2 VTI: 32.2 cm Ao V2 VTI: 29.8 cm LV V1 VTI: 18.6 cm AV (velocity ratio): 0.62 MR max juaquin: 582.7 cm/sec PA V2 max: 87.1 cm/sec TR max juaquin: 283.6 cm/sec MR max P.8 mmHg PA V2 mean: 57.1 cm/sec TR max P.2 mmHg MR mean juaquin: 455.0 cm/sec MR mean P.7 mmHg MR VTI: 208.5 cm ECHO/Echo Complete Interpretation Summary The estimated ejection fraction is 55 %. Unable to assess diastolic dysfunction. The left atrium is mildly enlarged. The right atrium is mildly enlarged. Trivial mitral valve insufficiency. Ordering Physician: Hansel Gillis Performed By: Brodwolf, Dalton, RCS
[2024-01-26] MEDS: Furosemide 40 MG/4 ML Vial IV (18:21)
[2024-01-26] MEDS: 0.9% Saline Lock 10 ML Syringe IV (18:22)
[2024-01-26 18:31] LABS: Bedside Glucose 171 mg/dL (74-106)
[2024-01-26 20:08] LABS: Hemoglobin A1c 8.6 % (3.8-5.6)
[2024-01-26] MEDS: Budesonide Respules 0.5 MG/2 ML AMPUL.NEB. INHALATION (20:11)
[2024-01-26] MEDS: Albuterol 2.5 MG/3 ML VIAL.NEB. INHALATION ×2 (20:11→23:58)
[2024-01-26] MEDS: Carvedilol 25 MG Tablet PO (21:58)
[2024-01-26] MEDS: Insulin Lispro 100 UNIT/ML INSULN.PEN SC (21:59)
[2024-01-26] MEDS: Aspirin 81 MG TAB.CHEW PO (21:59)
[2024-01-26] MEDS: hydrALAZINE 50 MG Tablet 100 MG PO (22:03)
[2024-01-26] MEDS: APIXABAN 2.5 MG TABLET (WCH) PO (22:04)
[2024-01-26 22:06] LABS: Bedside Glucose 210 mg/dL (74-106)
[2024-01-27] VITALS (11 sets, daily range): BP systolic 112–156; BP diastolic 62–83; PULSE 60–119; RESP 18–24; TEMP 36.2–37.1; O2SAT 93–100
[2024-01-27] MEDS: Insulin Lispro 100 UNIT/ML INSULN.PEN SC ×4 (04:25→21:47)
[2024-01-27 04:48] LABS: Bedside Glucose 233 mg/dL (74-106)
[2024-01-27 06:37] LABS: Absolute Lymphocyte Count 1.41 X10^3/uL (0.83-4.51); Absolute Neutrophil Count 3.9 X10^3/uL (2.0-7.7); Basophil# 0.02 X10^3/uL; Basophil% 0.3 % (0-1); Eosinophil# 0.21 X10^3/uL; Eosinophils% 3.4 % (0-5); Hematocrit 26.5 % (40-54); Hemoglobin 7.7 g/dL (13.0-16.5); Lymphocyte # 1.41 X10^3/ul (0.83-4.51); Lymphocyte % 22.8 % (19-41); Mean Corp Hgb Conc 29.1 g/dL (32-36); Mean Corpuscular Hgb 24.4 pg (27.0-32.0); Mean Corpuscular Volume 84.1 fL (80-94); Mean Platelet Vol. 10.8 fl (6.2-12.0); Monocyte# 0.65 X10^3/uL; Monocyte% 10.5 % (0-10); NRBC Flagged by Analyzer 0 % (0-5); Neutrophil # 3.87 X10^3/uL (2.7-7.7); Neutrophil % 62.7 % (47-70); Platelet Count 274 K/mm3 (150-450); RBC Distribution Width CV 16.8 % (11.6-14.6); RBC Distribution Width SD 50.9 fl (35.1-43.9); Red Blood Count 3.15 M/mm3 (4.6-6.2); White Blood Count 6.2 K/mm3 (4.4-11.0)
[2024-01-27 07:06] LABS: International Normalized Ratio 1.5; Prothrombin Time (Protime)PT. 18.2 SECONDS (11.7-14.9)
[2024-01-27 07:56] LABS: ALB/GLOB Ratio 0.9 RATIO (0.9-2.4); AST(SGOT) 19 U/L (15-37); Alanine Aminotransfer ALT/SGPT 25 U/L (16-61); Albumin, Serum 2.9 g/dL (3.2-5.0); Alkaline Phosphatase 69 U/L (45-117); Anion Gap 7 (5-15); BUN 35 mg/dL (7-18); BUN/Creat Ratio 15.9 RATIO (10-20); Bilirubin, Direct 0.13 mg/dL (0.00-0.30); Calcium,Total 8.6 mg/dL (8.5-10.1); Chloride 100 mmol/L (98-107); EST Glomerular Filtration Rate 30 mL/min (>60); Est Glom Filt Rate - Afr Amer 37 mL/min (>60); Estimated Creatinine Clearance 27.52 ml/min; Globulin 3.4 g/dL (2.2-4.2); Glucose 150 mg/dL (74-106); Phosphorus 3.2 mg/dL (2.5-4.9); Potassium 3.7 mmol/L (3.5-5.1); Protein, Total 6.3 g/dL (6.4-8.2); Sodium Level 136 mmol/L (136-145); Thyroid Stim Hormone (TSH) 2.57 uIU/mL (0.358-3.74)
[2024-01-27] MEDS: hydrALAZINE 50 MG Tablet 100 MG PO ×2 (09:22→21:47)
[2024-01-27] MEDS: Carvedilol 25 MG Tablet PO ×2 (09:22→17:37)
[2024-01-27] MEDS: Isosorbide Mononitrate 30 MG Tablet PO (09:23)
[2024-01-27] MEDS: Insulin Glargine-YFGN 100 UNIT/ML Pen 18 UNIT SC (09:23)
[2024-01-27] MEDS: Pantoprazole Sodium 40 MG Tablet PO (09:23)
[2024-01-27] MEDS: amLODIPine 10 MG Tablet PO (09:23)
[2024-01-27] MEDS: APIXABAN 2.5 MG TABLET (WCH) PO ×2 (09:23→21:48)
--- NOTE | 2024-01-27 11:09 | PN.HOSP_ITS ---
Reason for Visit Reason for Visit: Diagnoses Chronic kidney disease, unspecified (01/26/24) Objective Data Objective Data Vital Signs: Vital Signs Temp Pulse Resp BP Pulse Ox O2 Del Method O2 Flow Rate 98.0 F 80 20 H 156/83 H 100 Nasal Cannula 2 01/27/24 07:51 01/27/24 09:22 01/27/24 07:51 01/27/24 07:51 01/27/24 07:51 01/27/24 07:51 01/27/24 10:40 Oxygen Flow Rate (L/min) 2 Oxygen Delivery Method Nasal Cannula Weight: 218 lb 11.177 oz Body Mass Index (BMI) 33.2 Intake & Output: Intake and Output for Last 24 Hours 01/25/24 01/26/24 01/27/24 23:59 23:59 23:59 Intake Total 100 / 100 240 / 240 Output Total 350 / 650 550 / 550 Balance -250 / -550 -310 / -310 Lab / Micro Data 01/27/24 06:18 01/27/24 06:18 Labs: Laboratory Results - last 24 hr 01/26/24 13:40: WBC 6.0, RBC 3.05 L, Hgb 7.6 L, Hct 26.2 L, MCV 85.9, MCH 24.9 L , MCHC 29.0 L, RDW Std Deviation 53.1 H, RDW Coeff of Justin 17.1 H, Plt Count 257, MPV 10.5, Immature Gran % (Auto) 0.500, Neut % (Auto) 68.3, Lymph % (Auto) 18.5 L, [place] % (Auto) 10.2 H, Eos % (Auto) 2.2, Baso % (Auto) 0.3, Absolute Neuts (auto) 4.1, Absolute Lymphs (auto) 1.10, Nucleated RBC % 0, Sodium 137, Potassium 3.8, Chloride 98, Carbon Dioxide 32.0, Anion Gap 7, BUN 35 H, Creatinine 2.30 H, Estim Creat Clear Calc 26.32, Est GFR (MDRD) Af Amer 35 L, Est GFR (MDRD) Non-Af 29 L, BUN/Creatinine Ratio 15.2, Glucose 282 H, Calcium 8.8, Troponin I High Sens 15, B-Natriuretic Peptide 790.9 H 01/26/24 17:24: POC Glucose 171 H 01/26/24 18:11: Hemoglobin A1c 8.6 H 01/26/24 21:43: POC Glucose 210 H 01/27/24 04:23: POC Glucose 233 H 01/27/24 06:18: WBC 6.2, RBC 3.15 L, Hgb 7.7 L, Hct 26.5 L, MCV 84.1, MCH 24.4 L , MCHC 29.1 L, RDW Std Deviation 50.9 H, RDW Coeff of Justin 16.8 H, Plt Count 274, MPV 10.8, Immature Gran % (Auto) 0.300, Neut % (Auto) 62.7, Lymph % (Auto) 22.8, [place] % (Auto) 10.5 H, Eos % (Auto) 3.4, Baso % (Auto) 0.3, Absolute Neuts (auto) 3.9, Absolute Lymphs (auto) 1.41, Nucleated RBC % 0, PT 18.2 H, INR 1.5, Sodium 136, Potassium 3.7, Chloride 100, Carbon Dioxide 29.0, Anion Gap 7, BUN 35 H, Creatinine 2.20 H, Estim Creat Clear Calc 27.52, Est GFR (MDRD) Af Amer 37 L, Est GFR (MDRD) Non-Af 30 L, BUN/Creatinine Ratio 15.9, Glucose 150 H, Calcium 8.6, Phosphorus 3.2, Magnesium 2.0, Total Bilirubin 0.40, Direct Bilirubin 0.13, AST 19, ALT 25, Alkaline Phosphatase 69, Total Protein 6.3 L, Albumin 2.9 L, Globulin 3.4, Albumin/Globulin Ratio 0.9, TSH 2.57 Radiography Diagnostic Testing: Radiology Impression Chest X-Ray 01/26/24 14:10 IMPRESSION: There are bilateral pleural effusions. There are bilateral infiltrates. Electronically Signed: Vinod Castillo MD at 14:24 EDT Reading Location ID and State: [facility] / [place] , Service support , Physical Exam Narrative Seen and examined. History of heart failure and COPD. Not on home oxygen. Denies chest pain but has shortness of breath on exertion, fatigue and leg swelling. Increase in cough severity and frequency in the last 1 to 2 weeks along with sputum production but the sputum is mainly mucus. Complain of constipation Physical exam General: Alert, Oriented x3, Cooperative HEENT: Atraumatic, PERRLA, EOMI, Normocephalic Oral: No Gingival or Mucosal Lesions/ Ulcerations Neck: Supple, No JVD, Negative Carotid Bruits Chest wall/Lungs: Air entry severely diminished. No wheezing. Mild rhonchi Cardiovascular: Irregular rhythm, S1-S2 regular. No M/G/R, stent in left leg infiltrate in 11/30 Abdomen: Bowel Sounds Present, Soft, Non Tender, Non-Distended : No dysuria. No renal angle tenderness. No suprapubic tenderness. Extremities: Bilateral below-knee pitting edema, Capillary Refill Less than 3 Seconds Skin: No rashes, No breakdown Musculoskeletal: No Tenderness to Palpation of Joints or Extremities Neurological: Cranial nerves II-XII grossly intact, DTR 2+/4. No acute focal neurological deficit. Psych/Mental Status: Flat affect Assessment & Plan Assessment/Plan (1) Chronic kidney disease: PLAN: Plan 88-year-old man with history of COPD, A-fib with RVR, HFrEF, prior coronary artery disease, MARIXA presents to the ED with progressive worsening shortness of breath and decline in his functional status, worsening for last 2 days. Chronic dyspnea on exertion for several years along with chronic cough the likely reason for his presentation is multifactorial. symptoms are not consistent with an acute exacerbation of COPD [no changes in cough, no sudden decline in shortness of breath, no desaturation]. It is likely due to ADHF on HFrEF secondary to A-fib or Pulmonary hypertension 2/2 COPD. # Acute on chronic HFpEF: 2D echo from 422 reviewed. EF 55%, no RWMA. Normal RV size and systolic function. LA mildly enlarged. Trivial MR. -IV Lasix 40 mg twice daily with hemodynamic monitoring and kidney function. Furosemide and spironolactone. Heart failure core measures including intake and output, fluid restriction less than 1500 mL, daily weight monitoring, kidney and electrolytes monitoring. CKD stage IV: Creatinine is between 2.2-2.4 with estimated creatinine clearance around 26 or per minute. On baseline. #COPD exacerbation: Patient is Sterets that he has increasing shortness of breath/dyspnea on exertion along with increase in severity and frequency of cough and sputum production therefore acute COPD exacerbation -DuoNeb scheduled. Prednisone ordered as patient with hyperglycemia. Continue baseline inhaler - PT/OT and Case management consult #Hypertension: -Continue tab amlodipine 10 mg daily -Hydralazine 100 mg twice daily # Afib: Presently rate is well controlled -Continue apixaban 2.5 mg twice daily -Type carvedilol 25 mg twice daily # Prior CAD: Last stress test was negative for ischemia -Aspirin 81 mg daily -Atorvastatin 40 mg daily -Continue isosorbide mononitrate 30 mg # MARIXA: Continue bipap at home settings, consider outpatient reevaluation after discharge #Type 2 diabetes: -Continue insulin glargine 18 units subcu in the a.m. -Close sugar monitoring -Insulin sliding scale #GERD continue pantoprazole daily Constipation: MiraLAX and senna S started # DVT: Moderate to high risk: On apixaban. Charges/Coding Visit Charges Inpatient E&M: 18017 Subs Hosp L2
--- NOTE | 2024-01-27 12:20 | CASEMGMT ---
Addendum entered by Carri Mccray 01/27/24 15:13: 1335- COLLEEN BECERRA into pt room, pt and dtr present. Discussed HHC and what could be offered to the patient as far as disease education, m/s assess, medication teaching and therapy. Pt and pt decline HH very adamantly, pt states pt goes to [employer] for [employer] and does not need therapy at home. All options offered were declined. Pt asked for business card and it was provided. Original Note: COLLEEN BECERRA into pt. room, pt. sitting in chair, his daughter in room sitting next to him. Pt stated it was ok to talk with daughter in room. Asked pt. about HH, pt stated he wanted COLLEEN BECERRA to come back and discuss when his arrives. Pt informed to hit call light when comes in today to discuss HH options. He verbalized understanding.
[2024-01-27] MEDS: Polyethylene Glycol 3350 17 GM PACKET PO (13:17)
[2024-01-27] MEDS: Furosemide 40 MG/4 ML Vial IV ×2 (13:18→19:55)
--- NOTE | 2024-01-27 13:18 | CASEMGMT ---
COLLEEN BECERRA Assessment Face to Face with patient for initial transition planning/care coordination assessment. RN MARIAM introduced self and role at [facility], pt voices understanding. Pt is A&Ox4 and is resting comfortably in the chair and is calm. Care providers, pharmacy, and demographics verified. Admitting dx: SOB PCP: J Carlos Specialists: [facility]. [facility]. Preferred Pharmacy: [facility] Insurance: Crystal IS [facility] Prescription Benefit: Yes LNOK: Argentina Hernandes (W) Living Arrangements: Pt lives with his in a single story home with a BM with 3 steps to enter with a HR. Pt states that he does not go downstairs. ADLs/IADLs: Pt states that he is mainly ind but his does help some Transportation: DME: CPAP at night. Denies additional home O2. Pt is currently 100% on 2L NC. Will follow for potential home oxygen needs. Pt states that he has a working BGM and enough supplies to check his BS. Pt also reports that he has the following: Walker, cane, rollator, BP Cuff, Pulse Ox, and shower GB and chair. HHC/SNF: Denies SNF history or needs. Denies HHC history or needs. Pt states that he has been to OP therapy before and does not want to go back. Pt?s goal: Home with once medically ready Plan: This RN CM talked to the pt about how he did with therapy. The pt states that he is still wanting to DC home once medically ready and denies HHC, OP therapy, and SNF placement. Pt states that he wishes to DC home with his and states feeling safe doing so. CM to follow therapy and pt progression in the hospital for safe DC home. Alphonso Mirza RN, CM
[2024-01-27] MEDS: predniSONE 20 MG Tablet 40 MG PO (13:26)
[2024-01-27 16:49] LABS: Bedside Glucose 188 mg/dL (74-106)
[2024-01-27 17:11] LABS: Bedside Glucose 260 mg/dL (74-106)
[2024-01-27] MEDS: Insulin Lispro 100 UNIT/ML INSULN.PEN 8 UNIT SC (17:34)
[2024-01-27] MEDS: Ipratropium/Albuterol Sulfate 3 ML AMPUL.NEB INHALATION ×2 (19:32→23:03)
--- NOTE | 2024-01-27 19:40 | CPS ---
Patient has home CPAP in room with 2L bleed in
[2024-01-27] MEDS: 0.9% Saline Lock 10 ML Syringe IV (19:55)
[2024-01-27] MEDS: Aspirin 81 MG TAB.CHEW PO (21:48)
[2024-01-27] MEDS: Senna/Docusate Sodium 1 Tablet 2 TABLET PO (21:48)
[2024-01-27 22:10] LABS: Bedside Glucose 228 mg/dL (74-106)
[2024-01-28] VITALS (14 sets, daily range): BP systolic 122–141; BP diastolic 54–76; PULSE 57–96; RESP 14–18; TEMP 36.3–36.9; O2SAT 92–98
[2024-01-28] MEDS: Ipratropium/Albuterol Sulfate 3 ML AMPUL.NEB INHALATION ×4 (03:02→20:47)
[2024-01-28] MEDS: Insulin Lispro 100 UNIT/ML INSULN.PEN SC ×5 (03:05→20:33)
[2024-01-28 03:26] LABS: Bedside Glucose 341 mg/dL (74-106)
[2024-01-28 06:07] LABS: Bedside Glucose 255 mg/dL (74-106)
[2024-01-28 07:59] LABS: Anion Gap 8 (5-15); BUN 43 mg/dL (7-18); Calcium,Total 9.1 mg/dL (8.5-10.1); Chloride 98 mmol/L (98-107); Creatinine, Serum 2.39 mg/dL (0.70-1.30); EST Glomerular Filtration Rate 28 mL/min (>60); Est Glom Filt Rate - Afr Amer 33 mL/min (>60); Estimated Creatinine Clearance 25.01 ml/min; Glucose 236 mg/dL (74-106); Potassium 3.9 mmol/L (3.5-5.1); Sodium Level 135 mmol/L (136-145)
[2024-01-28] MEDS: Carvedilol 25 MG Tablet PO ×3 (08:37→20:32)
[2024-01-28] MEDS: hydrALAZINE 50 MG Tablet 100 MG PO ×2 (08:38→20:32)
[2024-01-28] MEDS: predniSONE 20 MG Tablet 40 MG PO (08:38)
[2024-01-28] MEDS: APIXABAN 2.5 MG TABLET (WCH) PO ×2 (08:39→20:33)
[2024-01-28] MEDS: Isosorbide Mononitrate 30 MG Tablet PO (08:40)
[2024-01-28] MEDS: Senna/Docusate Sodium 1 Tablet 2 TABLET PO ×2 (08:41→20:32)
[2024-01-28] MEDS: amLODIPine 10 MG Tablet PO (08:41)
[2024-01-28] MEDS: Pantoprazole Sodium 40 MG Tablet PO (08:41)
[2024-01-28 08:49] LABS: Absolute Lymphocyte Count 0.87 X10^3/uL (0.83-4.51); Absolute Neutrophil Count 5.3 X10^3/uL (2.0-7.7); Basophil# 0.01 X10^3/uL; Basophil% 0.1 % (0-1); Hemoglobin 7.1 g/dL (13.0-16.5); Lymphocyte # 0.87 X10^3/ul (0.83-4.51); Lymphocyte % 12.9 % (19-41); Mean Corp Hgb Conc 28.4 g/dL (32-36); Mean Corpuscular Hgb 24.1 pg (27.0-32.0); Mean Corpuscular Volume 84.7 fL (80-94); Mean Platelet Vol. 11.1 fl (6.2-12.0); Monocyte# 0.51 X10^3/uL; Monocyte% 7.6 % (0-10); NRBC Flagged by Analyzer 0 % (0-5); Neutrophil # 5.32 X10^3/uL (2.7-7.7); Platelet Count 283 K/mm3 (150-450); RBC Distribution Width CV 16.5 % (11.6-14.6); RBC Distribution Width SD 51.6 fl (35.1-43.9); Red Blood Count 2.95 M/mm3 (4.6-6.2); White Blood Count 6.7 K/mm3 (4.4-11.0)
[2024-01-28] MEDS: Insulin Lispro 100 UNIT/ML INSULN.PEN 8 UNIT SC (08:53)
[2024-01-28] MEDS: Insulin Glargine-YFGN 100 UNIT/ML Pen 18 UNIT SC (08:54)
[2024-01-28] MEDS: 0.9% Saline Lock 10 ML Syringe IV (10:12)
[2024-01-28] MEDS: Furosemide 40 MG/4 ML Vial IV (10:13)
[2024-01-28 11:50] LABS: Bedside Glucose 222 mg/dL (74-106)
--- NOTE | 2024-01-28 12:46 | PN.HOSP_ITS ---
Reason for Visit Reason for Visit: Diagnoses Chronic kidney disease, unspecified (01/26/24) Objective Data Objective Data Vital Signs: Vital Signs Temp Pulse Resp BP Pulse Ox O2 Del Method O2 Flow Rate 98.5 F 57 L 18 141/62 H 98 Room Air 2 01/28/24 07:32 01/28/24 10:32 01/28/24 07:45 01/28/24 08:38 01/28/24 10:32 01/28/24 10:32 01/28/24 03:11 Oxygen Flow Rate (L/min) 2 Oxygen Delivery Method Room Air Weight: 213 lb Body Mass Index (BMI) 33.2 Intake & Output: Intake and Output for Last 24 Hours 01/26/24 01/27/24 01/28/24 23:59 23:59 23:59 Intake Total 100 / 100 840 / 840 400 / 400 Output Total 350 / 650 1550 / 1550 350 / 350 Balance -250 / -550 -710 / -710 50 / 50 Lab / Micro Data 01/28/24 06:44 01/28/24 06:44 Labs: Laboratory Results - last 24 hr 01/27/24 11:02: POC Glucose 188 H 01/27/24 16:54: POC Glucose 260 H 01/27/24 21:44: POC Glucose 228 H 01/28/24 03:03: POC Glucose 341 H 01/28/24 05:42: POC Glucose 255 H 01/28/24 06:44: WBC 6.7, RBC 2.95 L, Hgb 7.1 L, Hct 25.0 L, MCV 84.7, MCH 24.1 L , MCHC 28.4 L, RDW Std Deviation 51.6 H, RDW Coeff of Justin 16.5 H, Plt Count 283, MPV 11.1, Immature Gran % (Auto) 0.400, Neut % (Auto) 79.0 H, Lymph % (Auto) 12.9 L, [place] % (Auto) 7.6, Eos % (Auto) 0.0, Baso % (Auto) 0.1, Absolute Neuts (auto) 5.3, Absolute Lymphs (auto) 0.87, Nucleated RBC % 0, Sodium 135 L, Potassium 3.9, Chloride 98, Carbon Dioxide 29.0, Anion Gap 8, BUN 43 H, Creatinine 2.39 H, Estim Creat Clear Calc 25.01, Est GFR (MDRD) Af Amer 33 L, Est GFR (MDRD) Non-Af 28 L, BUN/Creatinine Ratio 18.0, Glucose 236 H, Calcium 9.1 01/28/24 11:32: POC Glucose 222 H Radiography Diagnostic Testing: Radiology Impression Echocardiogram 01/26/24 17:13 Interpretation Summary The estimated ejection fraction is 55 %. Unable to assess diastolic dysfunction. The left atrium is mildly enlarged. The right atrium is mildly enlarged. Trivial mitral valve insufficiency. Ordering Physician: Hansel Gillis Performed By: Dalton Perez RCS Physical Exam Narrative Seen and examined. History of heart failure and COPD. Not on home oxygen. Overall shortness of breath is improved but he still has fatigue and leg swelling. Dyspnea on exertion walking in hallway. Discussed with . After right lower extremity stenting, he was not doing much physical work therefore gained weight/deconditioning and easily short of breath. Used to follow Dr. Rivero. 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 Physical exam General: Alert, Oriented x3, Cooperative HEENT: Atraumatic, PERRLA, EOMI, Normocephalic Oral: No Gingival or Mucosal Lesions/ Ulcerations Neck: Supple, No JVD, Negative Carotid Bruits Chest wall/Lungs: Air entry severely diminished. No wheezing. Mild expiratory rhonchi Cardiovascular: Irregular rhythm, S1-S2 regular. No M/G/R, stent in left leg infiltrate in 11/30 Abdomen: Bowel Sounds Present, Soft, Non Tender, Non-Distended : No dysuria. No renal angle tenderness. No suprapubic tenderness. Extremities: Bilateral below-knee pitting edema, Capillary Refill Less than 3 Seconds Skin: No rashes, No breakdown Musculoskeletal: No Tenderness to Palpation of Joints or Extremities Neurological: Cranial nerves II-XII grossly intact, DTR 2+/4. No acute focal neurological deficit. Psych/Mental Status: Flat affect Assessment & Plan Assessment/Plan (1) Chronic kidney disease: PLAN: Plan 88-year-old man with history of COPD, A-fib with RVR, HFrEF, prior coronary artery disease, MARIXA presents to the ED with progressive worsening shortness of breath and decline in his functional status, worsening for last 2 days. Chronic dyspnea on exertion for several years along with chronic cough the likely reason for his presentation is multifactorial. # Acute on chronic HFpEF: 2D echo from 422 reviewed. EF 55%, no RWMA. Normal RV size and systolic function. LA mildly enlarged. Trivial MR. -IV Lasix 40 mg twice daily with hemodynamic monitoring and kidney function. Furosemide and spironolactone. Heart failure core measures including intake and output, fluid restriction less than 1500 mL, daily weight monitoring, kidney and electrolytes monitoring. CKD stage IV: Creatinine is between 2.2-2.4 with estimated creatinine clearance around 26 or per minute. On baseline. 01/27: Slight increase in creatinine from 2.2-2.39. IV furosemide changed to oral furosemide. Follows [facility] took a dose already. Patient has appointment with nephrology tomorrow. Consulted ordered as per patient's request #COPD exacerbation: Patient is Sterets that he has increasing shortness of breath/dyspnea on exertion along with increase in severity and frequency of cough and sputum production therefore acute COPD exacerbation -DuoNeb scheduled. Prednisone ordered as patient with hyperglycemia. Continue baseline inhaler 01/27: Overall improvement in shortness of breath but he still has dyspnea on mild exertion. Patient and his wish to see a civil engineering professional. Used to follow Dr. iRvero before he left her. Discussed with Dr. Painter and consult requested. - PT/OT and Case management consult #Hypertension: -Continue tab amlodipine 10 mg daily -Hydralazine 100 mg twice daily # Afib: Presently rate is well controlled -Continue apixaban 2.5 mg twice daily -Type carvedilol 25 mg twice daily # Prior CAD: Last stress test was negative for ischemia -Aspirin 81 mg daily -Atorvastatin 40 mg daily -Continue isosorbide mononitrate 30 mg # MARIXA: Continue bipap at home settings, consider outpatient reevaluation after discharge #Type 2 diabetes: -Continue insulin glargine 18 units subcu in the a.m. -Close sugar monitoring -Insulin sliding scale 01/27 glucose levels are high at 250, scheduled Lantus and Humalog insulin dose increased accordingly. #GERD continue pantoprazole daily Constipation: MiraLAX and senna S started # DVT: Moderate to high risk: On apixaban. Charges/Coding Visit Charges Inpatient E&M: 84499 Subs Hosp L2
[2024-01-28] MEDS: Ferrous Sulfate 325 MG Tablet PO (13:36)
[2024-01-28] MEDS: Nystatin Powder 15gm Bottle 1 APPLIC TOPICAL ×2 (13:37→20:32)
--- NOTE | 2024-01-28 14:31 | CASEMGMT ---
Social Work SW informed by case management that pt may be interested in TCU, pt has been there before. SNF list not needed at this time as TCU is the first choice. They may consider other options if TCU cannot take pt. SW met w/pt and in room in regard to discharge plan. They would like referral sent to TCU, would like to see if insurance will authorize. However if pt improves they may still want to consider going home. SW explained can make referral and we will see what TCU says, and let them know if they will start precert w/insurance. Pt and state understanding. Referral made to TCU, will continue to follow. RABIA Brothers
--- NOTE | 2024-01-28 14:35 | CASEMGMT ---
Hospitalist updated RN CM that pt and were inquiring about SNF's. RN CM into pt room, pt present. Discussed all dc options including Home with no services, home with outpt therapy, home with HH and SNF. Pt and state they are interested in [facility]CU. Discussed that pt will receive therapy daily and nursing services. They are interested to see if there are beds in TCU. Updated SW.
--- NOTE | 2024-01-28 14:49 | CASEMGMT ---
Social Work As per Shaft, pt has [facility]. Dionne passed on the ID # to BRYAN, SW gave it to registration: [id number]. Precert still pending at this time. RABIA Brothers
[2024-01-28 16:48] LABS: Bedside Glucose 301 mg/dL (74-106)
[2024-01-28] MEDS: Insulin Lispro 100 UNIT/ML INSULN.PEN 13 UNIT SC (17:51)
[2024-01-28] MEDS: Furosemide 40 MG Tablet PO (17:51)
[2024-01-28] MEDS: Aspirin 81 MG TAB.CHEW PO (20:31)
[2024-01-28] MEDS: Atorvastatin Calcium 40 MG Tablet PO (20:31)
[2024-01-28] MEDS: Acetaminophen 500 MG Tablet 1000 MG PO (21:32)
[2024-01-28 21:44] LABS: Bedside Glucose 329 mg/dL (74-106)
[2024-01-29 02:10] VITALS: BP 117/55; PULSE 82; RESP 16; TEMP 36.1; O2SAT 100
[2024-01-29 05:59] LABS: Bedside Glucose 186 mg/dL (74-106)
--- NOTE | 2024-01-29 07:26 | EX.PCM.CONCC ---
Assessment & Plan Assessment/Plan (1) Asthma-COPD overlap syndrome: PLAN: Plan RECOMMENDATIONS: 1. Continue bronchodilators and steroids as ordered. 2. Recommend prednisone taper at discharge. 3. Perform walking oximetry study prior to consideration for discharge home. 4. Send type and screen. Recommend transfusing if hemoglobin drops below 7 g/dL. 5. If anemia worsens, consider GI consultation. 6. Continue ongoing diuresis as tolerated by hemodynamics and renal function. 7. Follow-up in the pulmonary medicine clinic in March, as scheduled. 8. Given baseline pulmonary status, will sign off. Please call with any additional questions. IMPRESSIONS: 1. History of COPD with exacerbation I do suspect that the patient's longstanding dyspnea is likely multifactorial in etiology with underlying obstructive lung disease, heart failure with preserved ejection fraction, anemia and generalized deconditioning contributing. However, the patient is not hypoxemic. He is on an appropriate inhaler regimen on an outpatient basis. He has been compliant with his prescribed medication regimen. It is reasonable to continue scheduled bronchodilators and steroids, with plans for a taper at discharge. I have no new additional recommendations from a pulmonary perspective. 2. CHF exacerbation Continue ongoing diuresis as tolerated by hemodynamics and renal function. 3. Anemia Recommend sending type and screen. Transfuse if hemoglobin drops below 7 g/dL. If anemia worsens, consider GI consultation. 4. History of chronic kidney disease/obstructive sleep apnea/hypertension/hyperlipidemia/obesity Complicates care, management, recovery and prognosis. Continue home medications as indicated. This note was generated with [employer] dictation software. It may contain incorrect words, spelling, and punctuation that were not noted in checking the note before signing. HPI Consult Data Date of Consult: 01/29/24 HPI Narrative Reason for Consultation: COPD exacerbation HPI Narrative: The patient is an 88-year-old male, with a history as outlined below, who presented to the emergency department on January 25 with shortness of breath. The patient has a known history of coronary artery disease status post PCI, hypertension, hyperlipidemia, obstructive sleep apnea and COPD. He was previously under the care of Dr. Rivero. The patient was last seen in the pulmonary office on December 31, at which time, he was placed on antibiotics and prednisone for a presumptive exacerbation. The patient has chronic, longstanding exertional dyspnea without any evidence of hypoxemia. The patient has a presumptive history of heart failure with preserved ejection fraction. On presentation to the emergency department, the patient was noted to be afebrile and hemodynamically stable. The patient was maintaining appropriate oxygen saturations on room air. Laboratory evaluation revealed a normal white blood cell count with baseline anemia. Hemoglobin was noted to be 7.6 g/dL. Chemistry profile was notable for chronic kidney disease with a creatinine of 2.3. Troponin was negative but BNP was elevated at 790. Chest x-ray demonstrated bilateral pleural effusions. The patient was subsequently admitted to the hospital, where he has been maintained on scheduled bronchodilators, corticosteroids and scheduled Lasix. The patient has been maintaining appropriate oxygen saturations on room air throughout his hospitalization. He has been afebrile. He has been compliant with his home prescribed inhaler regimen. [facility] Medical History (Updated 01/26/24 @ 16:[address] Elvin Milligan MD) (HFpEF) heart failure with preserved ejection fraction Abdominal aortic aneurysm (AAA) Acute cystitis with hematuria Allergic rhinitis Ambulates with cane Anemia Arthritis Asthma Asthma-COPD overlap syndrome Atherosclerotic heart disease of [place] coronary artery without angina pectoris Back pain BiPAP (biphasic positive airway pressure) dependence Cancer Carotid bruit Chest pain Chronic constipation Chronic cough Colon polyp Colonic mass Constipation COPD (chronic obstructive pulmonary disease) Coronary artery disease Daytime hypersomnia DDD (degenerative disc disease), lumbar Debility DM2 (diabetes mellitus, type 2) ALMEIDA (dyspnea on exertion) Dyslipidemia Easy bruising Essential (primary) hypertension Fatigue Former smoker Frequent hospital admissions Gastroesophageal reflux disease History of edema History of heart attack History of hiatal hernia History of irregular heartbeat History of pain when walking History of renal disease History of steroid therapy History of stress test Hoarseness Hyperlipidemia Injury of back Kidney stone Leg cramps Lightheadedness Obstructive sleep apnea MARIXA (obstructive sleep apnea) Overweight Patellar bursitis of right knee Peripheral vascular disease of extremity with claudication Pleural effusion Pneumonia Pre-syncope PVD (peripheral vascular disease) Rectus sheath hematoma Recurrent urinary tract infection Restless legs syndrome Right leg swelling Seasonal allergies Shortness of breath on exertion Sleep apnea Somatic dysfunction of pelvic region Urinary retention Walker as ambulation aid Wears dentures Wears glasses Wears hearing aid Home Medications ammonium lactate 12 % lotion 1 applic topical QD-BID PRN dry skin 02/06/18 [History Last Taken Unknown] handicap placcard #1 ea 09/28/19 [Rx Last Taken Unknown] ascorbate calcium (vitamin C) 500 mg tablet 500 mg PO DAILY Bone strength 05/03/20 [History Last Taken 03/09/22] coenzyme Q10 100 mg capsule (Co Q-10) 100 mg PO DAILY 05/03/20 [History Last Taken Unknown] cholecalciferol (vitamin D3) 100 mcg (4,000 unit) tablet 100 mcg PO DAILY 11/03/20 [History Last Taken Unknown] spacer #1 ea 01/12/21 [Rx Last Taken Unknown] aspirin 81 mg chewable tablet 81 mg PO QHS heart health 05/30/22 [History Last Taken Unknown] nitroglycerin 0.4 mg sublingual tablet (Nitrostat) 0.4 mg sublingual Q5-15M PRN chest pain #25 tabs 06/08/22 [Rx Last Taken Unknown] ipratropium 0.5 mg-albuterol 3 mg (2.5 mg base)/3 mL nebulization soln 3 ml inhalation 4X/DAY PRN PRN shortness of breath or wheezing #90 mL 08/03/22 [Rx Last Taken Unknown] furosemide 40 mg tablet 40 mg PO .COMPLEX #180 tabs 04/05/23 [Rx Last Taken Unknown] montelukast 10 mg tablet 10 mg PO QHS Respiratory #90 tabs 04/24/23 [Rx Last Taken Unknown] atorvastatin 40 mg tablet 40 mg PO QODAY cholesterol #45 tabs 05/23/23 [Rx Last Taken Unknown] carvedilol 25 mg tablet 25 mg PO BID #180 tabs 05/23/23 [Rx Last Taken Unknown] lancets #180 ea 07/18/23 [Rx Last Taken Unknown] amlodipine 10 mg tablet 10 mg PO DAILY This is a dose increase #90 tabs 08/28/23 [Rx Last Taken Unknown] blood sugar diagnostic (Eagle-i Musicuch Ultra Test strips) #180 ea 09/16/23 [Rx Last Taken Unknown] budesonide-formoterol HFA 160 mcg-4.5 mcg/actuation aerosol inhaler (Symbicort) 2 puff inhalation BID #1 ea 10/23/23 [Rx Last Taken Unknown] ipratropium bromide 42 mcg (0.06 %) nasal spray 2 spray intranasal TID-QID PRN allergy symptoms #15 mL 10/23/23 [Rx Last Taken Unknown] pantoprazole 40 mg tablet,delayed release 40 mg PO DAILY reflux #90 tabs 11/19/23 [Rx Last Taken Unknown] ipratropium bromide 0.02 % solution for inhalation 2.5 ml inhalation Q6H PRN shortness of breath or wheezing #150 mL 12/06/23 [Rx Last Taken Unknown] apixaban 2.5 mg tablet (Eliquis) 2.5 mg PO BID #90 tabs 12/12/23 [Rx Last Taken Unknown] ferrous sulfate 325 mg (65 mg iron) tablet 325 mg PO Q OTHER DAY #30 tabs 12/16/23 [Rx Last Taken Unknown] loratadine 10 mg tablet 10 mg PO DAILY #90 tabs 12/16/23 [Rx Last Taken Unknown] hydralazine 100 mg tablet 100 mg PO BID #180 tabs 12/26/23 [Rx Last Taken Unknown] albuterol sulfate 90 mcg/actuation aerosol inhaler (Ventolin HFA) 2 inh inhalation Q4H PRN shortness of breath or wheezing #18 grams 01/01/24 [Rx Last Taken Unknown] ipratropium 0.5 mg-albuterol 3 mg (2.5 mg base)/3 mL nebulization soln 3 ml inhalation Q4H PRN PRN SOB &/OR WHEEZING #180 mL 01/01/24 [Rx Last Taken Unknown] magnesium citrate (OneLAX Magnesium Citrate oral solution) 300 ml PO ONCE #296 mL 01/02/24 [Rx Last Taken Unknown] pen needle, diabetic 31 gauge x 1/4 (1st Tier Unifine Pentips) #100 ea 01/15/24 [Rx Last Taken Unknown] insulin glargine 100 unit/mL (3 mL) subcutaneous pen (Lantus Solostar U-100 Insulin) 18 unit subcut QAM 01/20/24 [History Last Taken Unknown] isosorbide mononitrate 30 mg tablet,extended release 24 hr 30 mg PO DAILY #90 tabs 01/22/24 [Rx Last Taken Unknown] Allergy/AdvReac Type Severity Reaction Status Date / Time cilostazol [From Pletal] Allergy Unknown Verified 01/20/24 13:28 felodipine Allergy Hives Verified 01/20/24 13:28 levofloxacin Allergy Hives Verified 01/20/24 13:28 Sulfa (Sulfonamide Allergy Unknown Verified 01/20/24 13:28 Antibiotics) Family History Father Diabetes Cancer Prostate cancer Mother Dementia Brother Parkinsons Brother Cancer Surgical History (Updated 01/20/24 @ 13:[address] Carolynn Whitman MD) H/O aortic aneurysm repair (11/1998) H/O vascular surgery History of coronary artery stent placement (02/17/08) History of endarterectomy (07/2018) History of hernia repair History of left heart catheterization (03/2014) History of surgical procedure History of transurethral resection of prostate History of vascular surgery (08/2018) Social History (Updated 01/20/24 @ 13:[address] Carolynn Whitman MD) household members: spouse 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 status: retired current occupation: [employer] Smoking Status: Former smoker quit date: 08/07/08 pack-years: 2 Tobacco: How many years used: 52 Electronic Cigarette Use: not used how long ago did patient quit smokin years ago alcohol intake: current alcohol intake frequency: holidays/special occasions only details: hx of alcohol abuse substance use type: does not use caffeine: No what type of physical activity do you participate in: other details: Nustep frequency: 5-6 times per week duration: 15-30 minutes/day seatbelt use: always do you feel safe at home: Yes ROS ROS Narrative 10 systems were reviewed with pertinent positives as noted in the HPI above. Physical Exam Const alert and no apparent distress General Appearance: cooperative HEENT normocephalic and head/scalp atraumatic Eyes PERRL, EOMs intact bilaterally and conjunctivae normal Neck supple General: trachea midline Chest inspection of chest normal Resp normal respiratory effort Auscultation: Negative for rales, rhonchi or wheezes Cardio regular rate and regular rhythm GI normal to inspection, nondistended, normoactive bowel sounds Extremity Extremity Narrative: Wrapped lower extremities General Extremity: Negative for clubbing Neuro CN's II-XII intact bilaterally, moves all extremities and no focal motor deficits Psych cooperative and affect normal Lab / Micro Data 01/28/24 06:44 01/28/24 06:44 Labs: Laboratory Results - last 24 hr 01/28/24 06:44: WBC 6.7, RBC 2.95 L, Hgb 7.1 L, Hct 25.0 L, MCV 84.7, MCH 24.1 L, MCHC 28.4 L, RDW Std Deviation 51.6 H, RDW Coeff of Justin 16.5 H, Plt Count 283, MPV 11.1, Immature Gran % (Auto) 0.400, Neut % (Auto) 79.0 H, Lymph % (Auto) 12.9 L, [place] % (Auto) 7.6, Eos % (Auto) 0.0, Baso % (Auto) 0.1, Absolute Neuts (auto) 5.3, Absolute Lymphs (auto) 0.87, Nucleated RBC % 0, Sodium 135 L, Potassium 3.9, Chloride 98, Carbon Dioxide 29.0, Anion Gap 8, BUN 43 H, Creatinine 2.39 H, Estim Creat Clear Calc 25.01, Est GFR (MDRD) Af Amer 33 L, Est GFR (MDRD) Non-Af 28 L, BUN/Creatinine Ratio 18.0, Glucose 236 H, Calcium 9.1 01/28/24 11:32: POC Glucose 222 H 01/28/24 16:26: POC Glucose 301 H 01/28/24 20:30: POC Glucose 329 H 01/29/24 02:11: POC Glucose 186 H Charges/Coding Visit Charges Inpatient E&M: 91122 Init Hosp L2
[2024-01-29 07:51] LABS: Absolute Lymphocyte Count 1.19 X10^3/uL (0.83-4.51); Absolute Neutrophil Count 5.1 X10^3/uL (2.0-7.7); Basophil# 0.01 X10^3/uL; Basophil% 0.1 % (0-1); Eosinophil# 0.03 X10^3/uL; Eosinophils% 0.4 % (0-5); Hematocrit 24.9 % (40-54); Hemoglobin 7.2 g/dL (13.0-16.5); Lymphocyte # 1.19 X10^3/ul (0.83-4.51); Lymphocyte % 17.2 % (19-41); Mean Corp Hgb Conc 28.9 g/dL (32-36); Mean Corpuscular Hgb 24.9 pg (27.0-32.0); Mean Corpuscular Volume 86.2 fL (80-94); Mean Platelet Vol. 11.1 fl (6.2-12.0); Monocyte% 8.7 % (0-10); NRBC Flagged by Analyzer 0 % (0-5); Neutrophil # 5.06 X10^3/uL (2.7-7.7); Neutrophil % 73.3 % (47-70); Platelet Count 301 K/mm3 (150-450); RBC Distribution Width CV 16.5 % (11.6-14.6); RBC Distribution Width SD 50.4 fl (35.1-43.9); Red Blood Count 2.89 M/mm3 (4.6-6.2); White Blood Count 6.9 K/mm3 (4.4-11.0)
[2024-01-29] MEDS: Ipratropium/Albuterol Sulfate 3 ML AMPUL.NEB INHALATION (07:51)
[2024-01-29 07:52] VITALS: PULSE 78; RESP 16; O2SAT 93
[2024-01-29 07:52] LABS: Bedside Glucose 177 mg/dL (74-106)
[2024-01-29 08:10] VITALS: BP 132/71; PULSE 61; RESP 22; TEMP 36.3; O2SAT 96
[2024-01-29] MEDS: predniSONE 20 MG Tablet 40 MG PO (08:12)
[2024-01-29] MEDS: Insulin Lispro 100 UNIT/ML INSULN.PEN SC ×2 (08:14→12:01)
[2024-01-29] MEDS: Insulin Lispro 100 UNIT/ML INSULN.PEN 13 UNIT SC ×2 (08:15→12:02)
[2024-01-29 08:35] LABS: Anion Gap 7 (5-15); BUN 50 mg/dL (7-18); BUN/Creat Ratio 20.2 RATIO (10-20); Calcium,Total 9.1 mg/dL (8.5-10.1); Chloride 99 mmol/L (98-107); Creatinine, Serum 2.48 mg/dL (0.70-1.30); EST Glomerular Filtration Rate 26 mL/min (>60); Est Glom Filt Rate - Afr Amer 32 mL/min (>60); Glucose 166 mg/dL (74-106); Sodium Level 135 mmol/L (136-145)
[2024-01-29] MEDS: Furosemide 40 MG Tablet PO (10:07)
[2024-01-29] MEDS: Pantoprazole Sodium 40 MG Tablet PO (10:08)
[2024-01-29] MEDS: amLODIPine 10 MG Tablet PO (10:08)
[2024-01-29 10:09] VITALS: BP 132/71; PULSE 61
[2024-01-29] MEDS: hydrALAZINE 50 MG Tablet 100 MG PO (10:09)
[2024-01-29] MEDS: Isosorbide Mononitrate 30 MG Tablet PO (10:10)
--- NOTE | 2024-01-29 10:24 | PN.HOSP_ITS ---
Reason for Visit Reason for Visit: Diagnoses Chronic obstructive pulmonary disease, unspecified (01/26/24) Chronic kidney disease, unspecified (01/26/24) Objective Data Objective Data Vital Signs: Vital Signs Temp Pulse Resp BP Pulse Ox O2 Del Method O2 Flow Rate 97.4 F L 61 22 H 132/71 H 96 Nasal Cannula 2 01/29/24 08:10 01/29/24 10:09 01/29/24 08:10 01/29/24 10:09 01/29/24 08:10 01/29/24 08:10 01/29/24 08:10 Oxygen Flow Rate (L/min) 2 Oxygen Delivery Method Nasal Cannula Weight: 213 lb Body Mass Index (BMI) 33.2 Intake & Output: Intake and Output for Last 24 Hours 01/27/24 01/28/24 01/29/24 23:59 23:59 23:59 Intake Total 840 / 840 1140 / 1140 Output Total 1550 / 1550 550 / 550 925 / 925 Balance -710 / -710 590 / 590 -925 / -925 Lab / Micro Data 01/29/24 07:24 01/29/24 07:24 Labs: Laboratory Results - last 24 hr 01/28/24 11:32: POC Glucose 222 H 01/28/24 16:26: POC Glucose 301 H 01/28/24 20:30: POC Glucose 329 H 01/29/24 02:11: POC Glucose 186 H 01/29/24 07:24: WBC 6.9, RBC 2.89 L, Hgb 7.2 L, Hct 24.9 L, MCV 86.2, MCH 24.9 L , MCHC 28.9 L, RDW Std Deviation 50.4 H, RDW Coeff of Justin 16.5 H, Plt Count 301, MPV 11.1, Immature Gran % (Auto) 0.300, Neut % (Auto) 73.3 H, Lymph % (Auto) 17.2 L, [place] % (Auto) 8.7, Eos % (Auto) 0.4, Baso % (Auto) 0.1, Absolute Neuts (auto) 5.1, Absolute Lymphs (auto) 1.19, Nucleated RBC % 0, Sodium 135 L, Potassium 4.0, Chloride 99, Carbon Dioxide 29.0, Anion Gap 7, BUN 50 H, Creatinine 2.48 H, Estim Creat Clear Calc 24.10, Est GFR (MDRD) Af Amer 32 L, Est GFR (MDRD) Non-Af 26 L, BUN/Creatinine Ratio 20.2 H, Glucose 166 H, Calcium 9.1 01/29/24 07:30: POC Glucose 177 H Physical Exam Narrative Seen and examined. History of heart failure and COPD. Not on home oxygen. Overall shortness of breath is improved but he still has fatigue and leg swelling. Dyspnea on exertion walking in hallway. Discussed with . After right lower extremity stenting, he was not doing much physical work therefore gained weight/deconditioning and easily short of breath. Used to follow Dr. Arthur. Macario Abebe for CKD stage IV. Physical exam General: Alert, Oriented x3, Cooperative HEENT: Atraumatic, PERRLA, EOMI, Normocephalic Oral: No Gingival or Mucosal Lesions/ Ulcerations Neck: Supple, No JVD, Negative Carotid Bruits Chest wall/Lungs: Air entry severely diminished. No wheezing. Mild expiratory rhonchi Cardiovascular: Irregular rhythm, S1-S2 regular. No M/G/R, stent in left leg infiltrate in 11/30 Abdomen: Bowel Sounds Present, Soft, Non Tender, Non-Distended : No dysuria. No renal angle tenderness. No suprapubic tenderness. Extremities: Bilateral below-knee pitting edema, Capillary Refill Less than 3 Seconds Skin: No rashes, No breakdown Musculoskeletal: No Tenderness to Palpation of Joints or Extremities Neurological: Cranial nerves II-XII grossly intact, DTR 2+/4. No acute focal neurological deficit. Psych/Mental Status: Flat affect Assessment & Plan Assessment/Plan (1) Chronic kidney disease: PLAN: Plan 88-year-old man with history of COPD, A-fib with RVR, HFrEF, prior coronary artery disease, MARIXA presents to the ED with progressive worsening shortness of breath and decline in his functional status, worsening for last 2 days. Chronic dyspnea on exertion for several years along with chronic cough the likely reason for his presentation is multifactorial. # Acute on chronic HFpEF: 2D echo from 422 reviewed. EF 55%, no RWMA. Normal RV size and systolic function. LA mildly enlarged. Trivial MR. -IV Lasix 40 mg twice daily with hemodynamic monitoring and kidney function. Furosemide and spironolactone. Heart failure core measures including intake and output, fluid restriction less than 1500 mL, daily weight monitoring, kidney and electrolytes monitoring. CKD stage IV: Creatinine is between 2.2-2.4 with estimated creatinine clearance around 26 or per minute. On baseline. 01/27: Slight increase in creatinine from 2.2-2.39. IV furosemide changed to oral furosemide. Follows [facility] took a dose already. Patient has appointment with nephrology tomorrow. Consulted ordered as per patient's request #COPD exacerbation: Patient is Sterets that he has increasing shortness of breath/dyspnea on exertion along with increase in severity and frequency of cough and sputum production therefore acute COPD exacerbation -DuoNeb scheduled. Prednisone ordered as patient with hyperglycemia. Continue baseline inhaler 01/27: Overall improvement in shortness of breath but he still has dyspnea on mild exertion. Patient and his wish to see a systems software specialist. Used to follow Dr. Rivero before he left her. Discussed with Dr. Painter and consult requested. - PT/OT and Case management consult #Hypertension: -Continue tab amlodipine 10 mg daily -Hydralazine 100 mg twice daily # Afib: Presently rate is well controlled -Continue apixaban 2.5 mg twice daily -Type carvedilol 25 mg twice daily # Prior CAD: Last stress test was negative for ischemia -Aspirin 81 mg daily -Atorvastatin 40 mg daily -Continue isosorbide mononitrate 30 mg # MARIXA: Continue bipap at home settings, consider outpatient reevaluation after discharge #Type 2 diabetes: -Continue insulin glargine 18 units subcu in the a.m. -Close sugar monitoring -Insulin sliding scale 01/27 glucose levels are high at 250, scheduled Lantus and Humalog insulin dose increased accordingly. #GERD continue pantoprazole daily Constipation: MiraLAX and senna S started # DVT: Moderate to high risk: On apixaban.
[2024-01-29] MEDS: APIXABAN 2.5 MG TABLET (WCH) PO (10:30)
[2024-01-29] MEDS: Insulin Glargine-YFGN 100 UNIT/ML Pen 23 UNIT SC (10:31)
[2024-01-29 11:04] LABS: Platelet Count 292 K/mm3 (150-450); RET-HE 23.8 pg (30-35); Reticulocyte Count 3.04 % (0.5-1.5)
[2024-01-29 11:09] LABS: Ferritin 24 ng/mL (26-388); Iron 9 ug/dL (65-175); Iron Binding Capacity,Total 308 ug/dL (250-450); PERCENT IRON SATURATION 2.9 % (15.0-55.0)
[2024-01-29 11:35] LABS: Bedside Glucose 169 mg/dL (74-106)
--- NOTE | 2024-01-29 11:46 | CON.PCM.RE_ITS ---
Assessment & Plan Assessment/Plan (1) Chronic kidney disease: QUALIFIERS: Chronic kidney disease stage: stage 4 (severe) Qualified Code(s): N18.4 - Chronic kidney disease, stage 4 (severe) PLAN: History of CKD stage IV. Baseline creatinine around 2.4. Denies any new onset obstructive symptoms. Chronic mild degree of retention. Continue Lasix. Still has significant lower extremity edema. I will add metolazone for today overall he says breathing has improved. (2) Bilateral edema of lower extremity: HPI Consult Data Date of Consult: 01/29/24 HPI Narrative HPI Narrative: DESIREE ROSAS, is a 88 M who presents to the hospital with shortness of breath. Nephrology on consultation in view of CKD stage IV. He is well-known to me from office. History of CKD stage IV with baseline creatinine around 2.4. No significant proteinuria in the past. History of COPD, congestive heart failure. Apparently baseline weight is around 190 pounds. Weight went up to 215 pounds. Recently had left lower extremity iliofemoral reconstruction with vascular surgery. He states edema has worsened since then. Since admission, he has received Lasix. Breathing is slightly better. Still has significant lower extremity edema. Currently on Lasix 40 mg twice daily. Denies any obstructive symptoms. Chronic history of BPH, he does have some degree of retention which is not needed. [facility], [facility] Medical History (Updated 01/29/24 @ 11:[address] Jonny Abebe MD) (HFpEF) heart failure with preserved ejection fraction Abdominal aortic aneurysm (AAA) Acute cystitis with hematuria Allergic rhinitis Ambulates with cane Anemia Arthritis Asthma Asthma-COPD overlap syndrome Atherosclerotic heart disease of [place] coronary artery without angina pectoris Back pain BiPAP (biphasic positive airway pressure) dependence Cancer Carotid bruit Chest pain Chronic constipation Chronic cough Colon polyp Colonic mass Constipation COPD (chronic obstructive pulmonary disease) Coronary artery disease Daytime hypersomnia DDD (degenerative disc disease), lumbar Debility DM2 (diabetes mellitus, type 2) ALMEIDA (dyspnea on exertion) Dyslipidemia Easy bruising Essential (primary) hypertension Fatigue Former smoker Frequent hospital admissions Gastroesophageal reflux disease History of edema History of heart attack History of hiatal hernia History of irregular heartbeat History of pain when walking History of renal disease History of steroid therapy History of stress test Hoarseness Hyperlipidemia Injury of back Kidney stone Leg cramps Lightheadedness Obstructive sleep apnea MARIXA (obstructive sleep apnea) Overweight Patellar bursitis of right knee Peripheral vascular disease of extremity with claudication Pleural effusion Pneumonia Pre-syncope PVD (peripheral vascular disease) Rectus sheath hematoma Recurrent urinary tract infection Restless legs syndrome Right leg swelling Seasonal allergies Shortness of breath on exertion Sleep apnea Somatic dysfunction of pelvic region Urinary retention Walker as ambulation aid Wears dentures Wears glasses Wears hearing aid Home Medications ammonium lactate 12 % lotion 1 applic topical QD-BID PRN dry skin 02/06/18 [History Last Taken Unknown] handicap placcard #1 ea 09/28/19 [Rx Last Taken Unknown] ascorbate calcium (vitamin C) 500 mg tablet 500 mg PO DAILY Bone strength 05/03/20 [History Last Taken 03/09/22] coenzyme Q10 100 mg capsule (Co Q-10) 100 mg PO DAILY 05/03/20 [History Last Taken Unknown] cholecalciferol (vitamin D3) 100 mcg (4,000 unit) tablet 100 mcg PO DAILY 11/03/20 [History Last Taken Unknown] spacer #1 ea 01/12/21 [Rx Last Taken Unknown] aspirin 81 mg chewable tablet 81 mg PO QHS heart health 05/30/22 [History Last Taken Unknown] nitroglycerin 0.4 mg sublingual tablet (Nitrostat) 0.4 mg sublingual Q5-15M PRN chest pain #25 tabs 06/08/22 [Rx Last Taken Unknown] ipratropium 0.5 mg-albuterol 3 mg (2.5 mg base)/3 mL nebulization soln 3 ml inhalation 4X/DAY PRN PRN shortness of breath or wheezing #90 mL 08/03/22 [Rx Last Taken Unknown] furosemide 40 mg tablet 40 mg PO .COMPLEX #180 tabs 04/05/23 [Rx Last Taken Unknown] montelukast 10 mg tablet 10 mg PO QHS Respiratory #90 tabs 04/24/23 [Rx Last Taken Unknown] atorvastatin 40 mg tablet 40 mg PO QODAY cholesterol #45 tabs 05/23/23 [Rx Last Taken Unknown] carvedilol 25 mg tablet 25 mg PO BID #180 tabs 05/23/23 [Rx Last Taken Unknown] lancets #180 ea 07/18/23 [Rx Last Taken Unknown] amlodipine 10 mg tablet 10 mg PO DAILY This is a dose increase #90 tabs 08/28/23 [Rx Last Taken Unknown] blood sugar diagnostic (eXpressouch Ultra Test strips) #180 ea 09/16/23 [Rx Last Taken Unknown] budesonide-formoterol HFA 160 mcg-4.5 mcg/actuation aerosol inhaler (Symbicort) 2 puff inhalation BID #1 ea 10/23/23 [Rx Last Taken Unknown] ipratropium bromide 42 mcg (0.06 %) nasal spray 2 spray intranasal TID-QID PRN allergy symptoms #15 mL 10/23/23 [Rx Last Taken Unknown] pantoprazole 40 mg tablet,delayed release 40 mg PO DAILY reflux #90 tabs 11/19/23 [Rx Last Taken Unknown] ipratropium bromide 0.02 % solution for inhalation 2.5 ml inhalation Q6H PRN shortness of breath or wheezing #150 mL 12/06/23 [Rx Last Taken Unknown] apixaban 2.5 mg tablet (Eliquis) 2.5 mg PO BID #90 tabs 12/12/23 [Rx Last Taken Unknown] ferrous sulfate 325 mg (65 mg iron) tablet 325 mg PO Q OTHER DAY #30 tabs 08/30 [Rx Last Taken Unknown] loratadine 10 mg tablet 10 mg PO DAILY #90 tabs 12/16/23 [Rx Last Taken Unknown] hydralazine 100 mg tablet 100 mg PO BID #180 tabs 12/26/23 [Rx Last Taken Unknown] albuterol sulfate 90 mcg/actuation aerosol inhaler (Ventolin HFA) 2 inh inhalation Q4H PRN shortness of breath or wheezing #18 grams 01/01/24 [Rx Last Taken Unknown] ipratropium 0.5 mg-albuterol 3 mg (2.5 mg base)/3 mL nebulization soln 3 ml inhalation Q4H PRN PRN SOB &/OR WHEEZING #180 mL 01/01/24 [Rx Last Taken Unknown] magnesium citrate (OneLAX Magnesium Citrate oral solution) 300 ml PO ONCE #296 mL 01/02/24 [Rx Last Taken Unknown] pen needle, diabetic 31 gauge x 1/4 (1st Tier Unifine Pentips) #100 ea 01/15/24 [Rx Last Taken Unknown] insulin glargine 100 unit/mL (3 mL) subcutaneous pen (Lantus Solostar U-100 Insulin) 18 unit subcut QAM 01/20/24 [History Last Taken Unknown] isosorbide mononitrate 30 mg tablet,extended release 24 hr 30 mg PO DAILY #90 tabs 01/22/24 [Rx Last Taken Unknown] Allergy/AdvReac Type Severity Reaction Status Date / Time cilostazol [From Pletal] Allergy Unknown Verified 01/20/24 13:28 felodipine Allergy Hives Verified 01/20/24 13:28 levofloxacin Allergy Hives Verified 01/20/24 13:28 Sulfa (Sulfonamide Allergy Unknown Verified 01/20/24 13:28 Antibiotics) Family History Father Diabetes Cancer Prostate cancer Mother Dementia Brother Parkinsons Brother Cancer Surgical History (Updated 01/20/24 @ 13:[address] Carolynn Whitman MD) H/O aortic aneurysm repair (11/1998) H/O vascular surgery History of coronary artery stent placement (02/17/08) History of endarterectomy (07/2018) History of hernia repair History of left heart catheterization (03/2014) History of surgical procedure History of transurethral resection of prostate History of vascular surgery (08/2018) Social History (Updated 01/20/24 @ 13:[address] 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 Smoking Status: Former smoker quit date: 08/07/08 pack-years: 2 Tobacco: How many years used: 52 Electronic Cigarette Use: not used how long ago did patient quit smokin years ago alcohol intake: current alcohol intake frequency: holidays/special occasions only details: hx of alcohol abuse substance use type: does not use caffeine: No what type of physical activity do you participate in: other details: Nustep frequency: 5-6 times per week duration: 15-30 minutes/day seatbelt use: always do you feel safe at home: Yes ROS ROS Narrative Negative except above Physical Exam Narrative Alert awake oriented x 3 no obvious distress no pallor no icterus no JVD s1s2 no murmurs lungs clear abdomen soft no organomegaly no edema no cyanosis Lab / Micro Data 01/29/24 07:24 01/29/24 07:24 Labs: Laboratory Results - last 24 hr 01/28/24 11:32: POC Glucose 222 H 01/28/24 16:26: POC Glucose 301 H 01/28/24 20:30: POC Glucose 329 H 01/29/24 02:11: POC Glucose 186 H 01/29/24 07:24: WBC 6.9, RBC 2.89 L, Hgb 7.2 L, Hct 24.9 L, MCV 86.2, MCH 24.9 L , MCHC 28.9 L, RDW Std Deviation 50.4 H, RDW Coeff of Justin 16.5 H, Plt Count 301, MPV 11.1, Immature Gran % (Auto) 0.300, Neut % (Auto) 73.3 H, Lymph % (Auto) 17.2 L, [place] % (Auto) 8.7, Eos % (Auto) 0.4, Baso % (Auto) 0.1, Absolute Neuts (auto) 5.1, Absolute Lymphs (auto) 1.19, Nucleated RBC % 0, Sodium 135 L, Potassium 4.0, Chloride 99, Carbon Dioxide 29.0, Anion Gap 7, BUN 50 H, Creatinine 2.48 H, Estim Creat Clear Calc 24.10, Est GFR (MDRD) Af Amer 32 L, Est GFR (MDRD) Non-Af 26 L, BUN/Creatinine Ratio 20.2 H, Glucose 166 H, Calcium 9.1, Iron 9 L, TIBC 308, Iron Saturation 2.9 L, Ferritin 24 L 01/29/24 07:30: POC Glucose 177 H 01/29/24 11:17: POC Glucose 169 H
--- NOTE | 2024-01-29 11:58 | CASEMGMT ---
Social Work SW spoke w/Dorie, pt denied admission for TCU. SW let pt and know, they are agreeable to go home, continue to decline home health care referral. RABIA Brothers
[2024-01-29 12:41] VITALS: O2SAT 93; O2SAT 94
--- NOTE | 2024-01-29 12:41 | DCINST_ITS ---
Discharge Instructions Diet Discharge Diet: Low fat / Low cholesterol, 6 Cup Fluid Restriction and 2000 mg Sodium Diet Activity Discharge Activity: Return to Normal Activity Weight Bearing Status: Weight bearing as tolerated Dressing / Incision Call your doctor if you observe: Fever of 101 or Higher, Coldness, Increased Pain, Numbness or Tingling, Change in Color, Inability to urinate, Inability to have a bowel movement, Shortness of breath, Dizziness, Fainting spells, Swelling in the ankles, Chest pain, Prolonged hiccupping, Increased palpitations (irregular heartbeat) and Calf discomfort Follow Up Care When: IN 2 WEEKS Test Results: Test results from this visit will be discussed in further detail at your follow- up appointment, if applicable. Discharge Plan Admission Admit Date/Time: 01/26/24 16:19 Attending Provider: Fernandez Santana Primary Care Provider: Carolynn Whitman Consulting Providers: Hansel Gillis; Jonny Abebe Discharge Orders/Prescriptions Prescriptions: New sennosides-docusate sodium [Stool Softener-Stimulant Laxat] 8.6-50 mg Tablet 2 tab PO BID Qty: 0 0RF insulin lispro [Humalog KwikPen Insulin] 100 unit/mL Insulin Pen 15 unit subcut TIDAC Qty: 15 2RF Rx Instructions: Hold if glucose less than 130 mg/dl furosemide 40 mg Tablet 40 mg PO BIDLX 30 Days Qty: 60 1RF Rx Instructions: Hold for NARENDRA prednisone 10 mg tablet 10 mg PO DAILY Qty: 30 0RF Rx Instructions: 40 mg for 3 days 30 mg for 3 days, 20 mg for 3 days,and 10 mg for 3 days Continued ammonium lactate 12 % lotion 1 applic TOPICAL QD-BID PRN (Reason: dry skin ) (DME) handicap placcard Qty: 1 0RF Rx Instructions: Lifetime: debility coenzyme Q10 [Co Q-10] 100 mg capsule 100 mg PO DAILY ascorbate calcium (vitamin C) 500 mg tablet 500 mg PO DAILY cholecalciferol (vitamin D3) 100 mcg (4,000 unit) tablet 100 mcg (4,000 unit) tablet 100 mcg PO DAILY (DME) spacer See Rx Instructions .ROUTE .MEDSUPPLY Qty: 1 0RF Rx Instructions: As directed ipratropium bromide 42 mcg (0.06 %) spray,non-aerosol 2 spray INTRANASAL TID-QID PRN (Reason: allergy symptoms) Qty: 15 6RF Rx Instructions: nasal drip - administer into each nostril; wait 30 seconds between sprays budesonide-formoterol [Symbicort] 160-4.5 mcg/actuation HFA aerosol inhaler 2 puff inhalation BID Qty: 1 3RF Rx Instructions: administer with spacer, rinse mouth after each use (DME) OneTouch Ultra Test Strip See Rx Instructions .Route Qty: 180 1RF Rx Instructions: Check twice a day. (DME) lancets Misc See Rx Instructions .Route Qty: 180 1RF Rx Instructions: twice daily hydralazine 100 mg tablet 100 mg PO BID Qty: 180 3RF Eliquis 2.5 mg tablet 2.5 mg PO BID Qty: 90 1RF ferrous sulfate 325 mg (65 mg iron) tablet 325 mg PO Q OTHER DAY Qty: 30 1RF magnesium citrate [OneLAX Magnesium Citrate] Solution 300 ml PO ONCE Qty: 296 0RF Rx Instructions: take 1/2 bottle , if no response in 4-6 hours, then drink the rest of the bottle albuterol sulfate [Ventolin HFA] 90 mcg/actuation HFA aerosol inhaler 2 inh INHALATION Q4H PRN (Reason: shortness of breath or wheezing) Qty: 18 6RF ipratropium-albuterol 0.5 mg-3 mg(2.5 mg base)/3 mL solution for nebulization 3 ml inhalation Q4H PRN PRN (Reason: SOB &/OR WHEEZING) Qty: 180 6RF aspirin 81 mg tablet,chewable 81 mg PO QHS Patient Comments: antiplatelet nitroglycerin [Nitrostat] 0.4 mg tablet, sublingual 0.4 mg SUBLINGUAL Q5-15M PRN (Reason: chest pain) Qty: 25 2RF ipratropium-albuterol 0.5 mg-3 mg(2.5 mg base)/3 mL solution for nebulization 3 ml inhalation 4X/DAY PRN PRN (Reason: shortness of breath or wheezing) Qty: 90 6RF montelukast 10 mg tablet 10 mg PO QHS Qty: 90 3RF carvedilol 25 mg tablet 25 mg PO BID Qty: 180 3RF Rx Instructions: must administer with a meal/food atorvastatin 40 mg tablet 40 mg PO QODAY Qty: 45 3RF amlodipine 10 mg tablet 10 mg PO DAILY Qty: 90 3RF pantoprazole 40 mg tablet,delayed release (DR/EC) 40 mg PO DAILY Qty: 90 1RF ipratropium bromide 0.02 % solution 2.5 ml inhalation Q6H PRN (Reason: shortness of breath or wheezing) Qty: 150 11RF loratadine 10 mg tablet 10 mg PO DAILY Qty: 90 0RF (DME) pen needle, diabetic [1st Tier Unifine Pentips] 31 gauge x 1/4 needle See Rx Instructions .Route Qty: 100 1RF Rx Instructions: daily isosorbide mononitrate 30 mg tablet extended release 24 hr 30 mg PO DAILY Qty: 90 1RF Changed insulin glargine [Lantus Solostar U-100 Insulin] 100 unit/mL (3 mL) insulin pen 22 unit subcut QAM Qty: 3 0RF Discontinued furosemide 40 mg tablet 40 mg PO .COMPLEX Qty: 180 3RF Rx Instructions: 40 mg orally daily. Take 40 mg BID if weight > 190lbs; Referrals / Follow Up: Carolynn Whitman MD [Primary Care Provider] - In 1 Week Luiz Painter DO [Med Staff - Active Staff] - Within 1 Month Jonny Abebe MD [Med Staff - Consulting] - Within 1 Month Disposition Disposition (needs filled in before D/C Order can be placed): Home, Self Care
--- NOTE | 2024-01-29 12:49 | PCM.DC.SUM ---
Providers Date of Admission: 01/26/24 Date of Discharge: 01/29/24 Primary Care Physician: Dr. Carolynn Whitman MD Consultations 01/28/24 12:43 Consult: Director [employer] / Pulmonary Medicine Routine Consulting Provider: Intensivists/Pulmonary Med Reason for Consult: copd exa EMERGENT Consult: No Notified: Yes Date Notified: 01/28/24 Time Notified: 12:43 Method of Notification: Verbal 01/28/24 12:44 Consult: Nephrology Routine Consulting Provider: Jonny Abebe Reason for Consult: ckd stage 4 EMERGENT Consult: No Notified: Yes Date Notified: 01/28/24 Time Notified: 12:44 Method of Notification: Text Reason For Visit: SHORTNESS OF BREATH Diagnosis Discharge Diagnosis (1) Chronic kidney disease: Status: Chronic Code(s): N18.9 - Chronic kidney disease, unspecified Qualifiers: Chronic kidney disease stage: stage 4 (severe) Qualified Code(s): N18.4 - Chronic kidney disease, stage 4 (severe) (2) Bilateral edema of lower extremity: Status: Acute Code(s): R60.0 - Localized edema Plan 88-year-old man with history of COPD, A-fib with RVR, HFrEF, prior coronary artery disease, MARIXA presents to the ED with progressive worsening shortness of breath and decline in his functional status, worsening for last 2 days. Chronic dyspnea on exertion for several years along with chronic cough the likely reason for his presentation is multifactorial. # Acute on chronic HFpEF: 2D echo from 422 reviewed. EF 55%, no RWMA. Normal RV size and systolic function. LA mildly enlarged. Trivial MR. -IV Lasix 40 mg twice daily with hemodynamic monitoring and kidney function. Furosemide and spironolactone. Heart failure core measures including intake and output, fluid restriction less than 1500 mL, daily weight monitoring, kidney and electrolytes monitoring. 01/28: Patient shortness of breath, dyspnea has improved. Leg swelling also improved. Patient discharged on furosemide 40 mg twice daily. Fluid restriction. Follow-up with cardiology. CKD stage IV: Creatinine is between 2.2-2.4 with estimated creatinine clearance around 26 or per minute. On baseline. 01/27: Slight increase in creatinine from 2.2-2.39. IV furosemide changed to oral furosemide. Follows [facility] took a dose already. Patient has appointment with nephrology tomorrow. Consulted ordered as per patient's request 01/28: Nephrology consulted revised and appreciated. CKD stage IV, creatinine baseline around 2.4. No obstructive symptoms.Metolazone 5 mg 1 dose given by clinical education manager. #COPD exacerbation: Patient is Sterets that he has increasing shortness of breath/dyspnea on exertion along with increase in severity and frequency of cough and sputum production therefore acute COPD exacerbation -DuoNeb scheduled. Prednisone ordered as patient with hyperglycemia. Continue baseline inhaler 01/27: Overall improvement in shortness of breath but he still has dyspnea on mild exertion. Patient and his wish to see a pressing department supervisor. Used to follow Dr. Rivero before he left. Discussed with Dr. Painter and consult requested. 01/28: Patient was evaluated by pressing department supervisor Dr. Painter. No specific recommendation but discharged on tapering dose of prednisone. Patient had inhaler and a spacer at home. Continue follow-up in pulmonary clinic. Mild hypoxia. Home oxygen qualification test ordered prior to discharge - PT/OT and Case management consult #Hypertension: -Continue tab amlodipine 10 mg daily -Hydralazine 100 mg twice daily # Afib: Presently rate is well controlled -Continue apixaban 2.5 mg twice daily -Type carvedilol 25 mg twice daily # Prior CAD: Last stress test was negative for ischemia -Aspirin 81 mg daily -Atorvastatin 40 mg daily -Continue isosorbide mononitrate 30 mg # MARIXA: Continue bipap at home settings, consider outpatient reevaluation after discharge #Type 2 diabetes: -Continue insulin glargine 18 units subcu in the a.m. -Close sugar monitoring -Insulin sliding scale 01/27 glucose levels are high at 250, scheduled Lantus and Humalog insulin dose increased accordingly. #GERD continue pantoprazole daily Constipation: MiraLAX and senna S started # DVT: Moderate to high risk: On apixaban. Discharge medication reconciliation done. Discharge follow-up instructions completed. Discharge process discussed with the patient and all questions were answered to patient's satisfaction. Follow with PCP in 1 to 2 weeks Total time spent, exact 35 minutes on discharge meds reconciliation, examination, coordination of care with nurses and ancillary staff, review of imaging and blood test and discussion with the patient on follow-up instructions. Medications at Discharge Home Medications ammonium lactate 12 % lotion 1 applic topical QD-BID PRN dry skin 02/06/18 handicap placcard #1 ea 09/28/19 ascorbate calcium (vitamin C) 500 mg tablet 500 mg PO DAILY Bone strength 05/03/20 coenzyme Q10 100 mg capsule (Co Q-10) 100 mg PO DAILY 05/03/20 cholecalciferol (vitamin D3) 100 mcg (4,000 unit) tablet 100 mcg PO DAILY 11/03/20 spacer #1 ea 01/12/21 aspirin 81 mg chewable tablet 81 mg PO QHS heart health 05/30/22 nitroglycerin 0.4 mg sublingual tablet (Nitrostat) 0.4 mg sublingual Q5-15M PRN chest pain #25 tabs 06/08/22 ipratropium 0.5 mg-albuterol 3 mg (2.5 mg base)/3 mL nebulization soln 3 ml inhalation 4X/DAY PRN PRN shortness of breath or wheezing #90 mL 08/03/22 montelukast 10 mg tablet 10 mg PO QHS Respiratory #90 tabs 04/24/23 atorvastatin 40 mg tablet 40 mg PO QODAY cholesterol #45 tabs 05/23/23 carvedilol 25 mg tablet 25 mg PO BID #180 tabs 05/23/23 lancets #180 ea 07/18/23 amlodipine 10 mg tablet 10 mg PO DAILY This is a dose increase #90 tabs 08/28/23 blood sugar diagnostic (Woo With StyleTouch Ultra Test strips) #180 ea 09/16/23 budesonide-formoterol HFA 160 mcg-4.5 mcg/actuation aerosol inhaler (Symbicort) 2 puff inhalation BID #1 ea 10/23/23 ipratropium bromide 42 mcg (0.06 %) nasal spray 2 spray intranasal TID-QID PRN allergy symptoms #15 mL 10/23/23 pantoprazole 40 mg tablet,delayed release 40 mg PO DAILY reflux #90 tabs 11/19/23 ipratropium bromide 0.02 % solution for inhalation 2.5 ml inhalation Q6H PRN shortness of breath or wheezing #150 mL 12/06/23 apixaban 2.5 mg tablet (Eliquis) 2.5 mg PO BID #90 tabs 12/12/23 ferrous sulfate 325 mg (65 mg iron) tablet 325 mg PO Q OTHER DAY #30 tabs 12/16/23 loratadine 10 mg tablet 10 mg PO DAILY #90 tabs 12/16/23 hydralazine 100 mg tablet 100 mg PO BID #180 tabs 12/26/23 albuterol sulfate 90 mcg/actuation aerosol inhaler (Ventolin HFA) 2 inh inhalation Q4H PRN shortness of breath or wheezing #18 grams 01/01/24 ipratropium 0.5 mg-albuterol 3 mg (2.5 mg base)/3 mL nebulization soln 3 ml inhalation Q4H PRN PRN SOB &/OR WHEEZING #180 mL 01/01/24 magnesium citrate (OneLAX Magnesium Citrate oral solution) 300 ml PO ONCE #296 mL 01/02/24 pen needle, diabetic 31 gauge x 1/4 (1st Tier Unifine Pentips) #100 ea 01/15/24 isosorbide mononitrate 30 mg tablet,extended release 24 hr 30 mg PO DAILY #90 tabs 01/22/24 furosemide 40 mg tablet 40 mg PO BIDLX 30 days #60 tabs 01/29/24 insulin glargine 100 unit/mL (3 mL) subcutaneous pen (Lantus Solostar U-100 Insulin) 22 unit (0.22 mL) subcut QAM #3 mL 01/29/24 insulin lispro 100 unit/mL subcutaneous pen (Humalog KwikPen (U-100) Insulin) 15 unit (0.15 mL) subcut TIDAC #15 mL 01/29/24 prednisone 10 mg tablet 10 mg PO DAILY #30 tabs 01/29/24 sennosides 8.6 mg-docusate sodium 50 mg tablet (Stool Softener-Stimulant Laxative) 2 tab PO BID #0 tabs 01/29/24 Physical Exam Narrative Seen and examined. History of heart failure and COPD. Not on home oxygen. Shortness of breath improved. Patient walked with physical therapy. Still has leg swelling and metolazone 5 mg given by clinical education manager. Discussed with . Was evaluated by clinical education manager and pressing department supervisor. Patient was not approved for SNF/tissue therefore going home. After right lower extremity stenting, he was not doing much physical work therefore gained weight/deconditioning and easily short of breath. Used to follow Dr. Rivero. 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 Physical exam General: Alert, Oriented x3, Cooperative HEENT: Atraumatic, PERRLA, EOMI, Normocephalic Oral: No Gingival or Mucosal Lesions/ Ulcerations Neck: Supple, No JVD, Negative Carotid Bruits Chest wall/Lungs: Air entry severely diminished. No wheezing. Mild fine expiratory rhonchi. Cardiovascular: Irregular rhythm, S1-S2 regular. No M/G/R, stent in left leg infiltrate in 11/30 Abdomen: Bowel Sounds Present, Soft, Non Tender, Non-Distended : No dysuria. No renal angle tenderness. No suprapubic tenderness. Extremities: Bilateral below-knee pitting edema, 2+. Capillary Refill Less than 3 Seconds Skin: No rashes, No breakdown Musculoskeletal: No Tenderness to Palpation of Joints or Extremities Neurological: Cranial nerves II-XII grossly intact, DTR 2+/4. No acute focal neurological deficit. Psych/Mental Status: Flat affect Weight / BMI Weight Weight: 213 lb Body Mass Index (BMI) 33.2 ABG / Lab / Microbiology Data 01/29/24 07:24 01/29/24 07:24 Laboratory: Laboratory Results - last 24 hr 01/28/24 16:26: POC Glucose 301 H 01/28/24 20:30: POC Glucose 329 H 01/29/24 02:11: POC Glucose 186 H 01/29/24 07:24: WBC 6.9, RBC 2.89 L, Hgb 7.2 L, Hct 24.9 L, MCV 86.2, MCH 24.9 L, MCHC 28.9 L, RDW Std Deviation 50.4 H, RDW Coeff of Justin 16.5 H, Plt Count 301, MPV 11.1, Immature Gran % (Auto) 0.300, Neut % (Auto) 73.3 H, Lymph % (Auto) 17.2 L, Russell % (Auto) 8.7, Eos % (Auto) 0.4, Baso % (Auto) 0.1, Absolute Neuts (auto) 5.1, Absolute Lymphs (auto) 1.19, Nucleated RBC % 0, Retic Count 3.04 H, Immature Retic Fraction 35.50 H, Retic Hgb Equivalent 23.8 L, Sodium 135 L, Potassium 4.0, Chloride 99, Carbon Dioxide 29.0, Anion Gap 7, BUN 50 H, Creatinine 2.48 H, Estim Creat Clear Calc 24.10, Est GFR (MDRD) Af Amer 32 L, Est GFR (MDRD) Non-Af 26 L, BUN/Creatinine Ratio 20.2 H, Glucose 166 H, Calcium 9.1, Iron 9 L, TIBC 308, Iron Saturation 2.9 L, Ferritin 24 L 01/29/24 07:30: POC Glucose 177 H 01/29/24 11:17: POC Glucose 169 H D/C Instructions Discharge Diet: Low fat / Low cholesterol, 6 Cup Fluid Restriction and 2000 mg Sodium Diet Weight Bearing Status: Weight bearing as tolerated Call your doctor if you observe: Fever of 101 or Higher, Coldness, Increased Pain, Numbness or Tingling, Change in Color, Inability to urinate, Inability to have a bowel movement, Shortness of breath, Dizziness, Fainting spells, Swelling in the ankles, Chest pain, Prolonged hiccupping, Increased palpitations (irregular heartbeat) and Calf discomfort When: IN 2 WEEKS Meaningful Use Info Meaningful Use Meaningful Use Diagnoses (Choose all that apply): None applicable Ischemic Stroke Statin Dosing Therapy Reference: STATIN DOSE THERAPY REFERENCE: * Patients > 75 years receive moderate or high dose statin therapy. * Patients 75 years or YOUNGER should receive HIGH intensity statin dose unless contraindicated. You will be required to document reason for non-treatment if statin daily dose does not meet guidelines. HIGH DOSE STATIN THERAPY DAILY Atorvastatin > than or = to 40 mg Rosuvastatin > than or = to 20 mg Amlodipine + Atorvastatin > than or = to 2.5/40 mg Ezetimibe + Simvastatin 10/80 mg Simvastatin 80mg Discharge Plan Admission Admit Date/Time: 01/26/24 16:19 Primary Reason for Your Visit: Acute heart failure and COPD exacerbation Attending Provider: Fernandez Santana Primary Care Provider: Carolynn Whitman Consulting Providers: Hansel Gillis; Jonny Abebe Discharge Orders/Prescriptions Prescriptions: New sennosides-docusate sodium [Stool Softener-Stimulant Laxat] 8.6-50 mg Tablet 2 tab PO BID Qty: 0 0RF insulin lispro [Humalog KwikPen Insulin] 100 unit/mL Insulin Pen 15 unit subcut TIDAC Qty: 15 2RF Rx Instructions: Hold if glucose less than 130 mg/dl furosemide 40 mg Tablet 40 mg PO BIDLX 30 Days Qty: 60 1RF Rx Instructions: Hold for NARENDRA prednisone 10 mg tablet 10 mg PO DAILY Qty: 30 0RF Rx Instructions: 40 mg for 3 days 30 mg for 3 days, 20 mg for 3 days,and 10 mg for 3 days Continued ammonium lactate 12 % lotion 1 applic TOPICAL QD-BID PRN (Reason: dry skin ) (DME) handicap placcard Qty: 1 0RF Rx Instructions: Lifetime: debility coenzyme Q10 [Co Q-10] 100 mg capsule 100 mg PO DAILY ascorbate calcium (vitamin C) 500 mg tablet 500 mg PO DAILY cholecalciferol (vitamin D3) 100 mcg (4,000 unit) tablet 100 mcg (4,000 unit) tablet 100 mcg PO DAILY (DME) spacer See Rx Instructions .ROUTE .MEDSUPPLY Qty: 1 0RF Rx Instructions: As directed ipratropium bromide 42 mcg (0.06 %) spray,non-aerosol 2 spray INTRANASAL TID-QID PRN (Reason: allergy symptoms) Qty: 15 6RF Rx Instructions: nasal drip - administer into each nostril; wait 30 seconds between sprays budesonide-formoterol [Symbicort] 160-4.5 mcg/actuation HFA aerosol inhaler 2 puff inhalation BID Qty: 1 3RF Rx Instructions: administer with spacer, rinse mouth after each use (DME) OneTouch Ultra Test Strip See Rx Instructions .Route Qty: 180 1RF Rx Instructions: Check twice a day. (DME) lancets Misc See Rx Instructions .Route Qty: 180 1RF Rx Instructions: twice daily hydralazine 100 mg tablet 100 mg PO BID Qty: 180 3RF Eliquis 2.5 mg tablet 2.5 mg PO BID Qty: 90 1RF ferrous sulfate 325 mg (65 mg iron) tablet 325 mg PO Q OTHER DAY Qty: 30 1RF magnesium citrate [OneLAX Magnesium Citrate] Solution 300 ml PO ONCE Qty: 296 0RF Rx Instructions: take 1/2 bottle , if no response in 4-6 hours, then drink the rest of the bottle albuterol sulfate [Ventolin HFA] 90 mcg/actuation HFA aerosol inhaler 2 inh INHALATION Q4H PRN (Reason: shortness of breath or wheezing) Qty: 18 6RF ipratropium-albuterol 0.5 mg-3 mg(2.5 mg base)/3 mL solution for nebulization 3 ml inhalation Q4H PRN PRN (Reason: SOB &/OR WHEEZING) Qty: 180 6RF aspirin 81 mg tablet,chewable 81 mg PO QHS Patient Comments: antiplatelet nitroglycerin [Nitrostat] 0.4 mg tablet, sublingual 0.4 mg SUBLINGUAL Q5-15M PRN (Reason: chest pain) Qty: 25 2RF ipratropium-albuterol 0.5 mg-3 mg(2.5 mg base)/3 mL solution for nebulization 3 ml inhalation 4X/DAY PRN PRN (Reason: shortness of breath or wheezing) Qty: 90 6RF montelukast 10 mg tablet 10 mg PO QHS Qty: 90 3RF carvedilol 25 mg tablet 25 mg PO BID Qty: 180 3RF Rx Instructions: must administer with a meal/food atorvastatin 40 mg tablet 40 mg PO QODAY Qty: 45 3RF amlodipine 10 mg tablet 10 mg PO DAILY Qty: 90 3RF pantoprazole 40 mg tablet,delayed release (DR/EC) 40 mg PO DAILY Qty: 90 1RF ipratropium bromide 0.02 % solution 2.5 ml inhalation Q6H PRN (Reason: shortness of breath or wheezing) Qty: 150 11RF loratadine 10 mg tablet 10 mg PO DAILY Qty: 90 0RF (DME) pen needle, diabetic [1st Tier Unifine Pentips] 31 gauge x 1/4 needle See Rx Instructions .Route Qty: 100 1RF Rx Instructions: daily isosorbide mononitrate 30 mg tablet extended release 24 hr 30 mg PO DAILY Qty: 90 1RF Changed insulin glargine [Lantus Solostar U-100 Insulin] 100 unit/mL (3 mL) insulin pen 22 unit subcut QAM Qty: 3 0RF Discontinued furosemide 40 mg tablet 40 mg PO .COMPLEX Qty: 180 3RF Rx Instructions: 40 mg orally daily. Take 40 mg BID if weight > 190lbs; Referrals / Follow Up: Carolynn Whitman MD [Primary Care Provider] - In 1 Week Luiz Painter DO [Med Staff - Active Staff] - Within 1 Month Jonny Abebe MD [Med Staff - Consulting] - Within 1 Month Marguerite Jennings NP, DEMAND EQUIPMENT REPAIRER-C [Non-Staff -Ordering Privileges] - Within 2 Weeks Disposition Disposition (needs filled in before D/C Order can be placed): Home, Self Care Charges/Coding Visit Charges Inpatient E&M: 32583 Disch Hosp >30min
[2024-01-29] MEDS: metOLazone 5 MG Tablet PO (13:16)
--- NOTE | 2024-01-29 13:45 | CASEMGMT ---
COLLEEN BECERRA NOTE: Discharge order is in. COLLEEN BECERRA to room. Pt sitting up in chair in room. Introduced self and role. Discussed discharge/needs. He denies having any needs. He denies wanting HHC or OP therapy. He states he and his have been going to [facility] for 5 yrs and he plans to continue to do this. He was made aware, if he changes his mind re: HHC or OP therapy, to f/u with his PCP. He voices understanding. Erna MIRELES RN CM
[2024-01-29 14:18] VITALS: BP 133/71; PULSE 70; RESP 20; TEMP 36.5; O2SAT 94
--- NOTE | 2024-01-29 16:06 | NURSING ---
All documentation by assisted living nursing director, Faizan Cary, reviewed by chief nursing officer, Rosa MIRELES, RN.
== END 2024-01-29 16:23 | disposition home or self-care (01) | DRG 291 ==
LOC: ED 15:58 → MS3 17:05
PROVIDERS: Physician Assistant; Admitting Provider Internal Medicine; Emergency Provider Emergency Medicine; PCP Internal Medicine; Visit Provider Internal Medicine
DX: I13.0 Hypertensive heart and chronic kidney disease with heart failure and stage 1 through stage 4 chronic kidney disease, or unspecified chronic kidney disease (principal); I50.33 Acute on chronic diastolic (congestive) heart failure; J44.1 Chronic obstructive pulmonary disease with (acute) exacerbation; N18.4 Chronic kidney disease, stage 4 (severe); E11.22 Type 2 diabetes mellitus with diabetic chronic kidney disease; E11.51 Type 2 diabetes mellitus with diabetic peripheral angiopathy without gangrene; I48.91 Unspecified atrial fibrillation; I25.10 Atherosclerotic heart disease of native coronary artery without angina pectoris; G47.33 Obstructive sleep apnea (adult) (pediatric); K21.9 Gastro-esophageal reflux disease without esophagitis; I25.2 Old myocardial infarction; Z87.891 Personal history of nicotine dependence; Z95.5 Presence of coronary angioplasty implant and graft
CPT/HCPCS: 36415; 71046; 80048; 80053; 82248; 82728; 82962; 83036; 83540; 83550; 83735; 83880; 84100; 84443; 84484; 85025; 85045; 85610; 93306; 94640; 94668; 97110; 97116; 97162; 97166; 97530; 97535; 99252; 99284; A4216; G0463; J1940

== ENCOUNTER → 2024-02-04 | Outpatient (CLI) | payer MEDICARE, SELFPAY ==
[2024-02-04 18:10] LABS: Protein, Urine (Random) 10.7 mg/dL (<11.9); Protein:Creat Ratio 305 mg/g CRE (0-200)
[2024-02-04 18:58] LABS: Anion Gap 9 (5-15); BUN 58 mg/dL (7-18); BUN/Creat Ratio 25.1 RATIO (10-20); Calcium,Total 9.1 mg/dL (8.5-10.1); Chloride 100 mmol/L (98-107); Creatinine, Serum 2.31 mg/dL (0.70-1.30); EST Glomerular Filtration Rate 29 mL/min (>60); Est Glom Filt Rate - Afr Amer 35 mL/min (>60); Glucose 146 mg/dL (74-106); Potassium 3.7 mmol/L (3.5-5.1); Sodium Level 136 mmol/L (136-145)
[2024-02-06 15:09] LABS: PROEL- A/G Ratio 1.2 (0.7-1.7); PROEL- Alpha-1 Globulin 0.2 g/dL (0.0-0.4); PROEL- Alpha-2 Globulin 0.8 g/dL (0.4-1.0); PROEL- Beta Globulin 0.7 g/dL (0.7-1.3); PROEL- Globulin, Total 2.6 g/dL (2.2-3.9); PROEL- TOTAL PROTEIN 5.6 g/dL (6.0-8.5); PROEL-M-Spike 0.5 g/dL (Not Observed)
== END | disposition home or self-care (01) ==
LOC: MTLAB 14:42
PROVIDERS: PCP Internal Medicine; Referring Provider Internal Medicine Nephrology; Visit Provider Internal Medicine Nephrology
DX: N18.4 Chronic kidney disease, stage 4 (severe) (principal)
CPT/HCPCS: 36415; 80048; 82570; 84156; 84165

== ENCOUNTER 2024-02-11 10:30 | Emergency (ER) | payer MEDICARE, SELFPAY ==
[2024-02-11 10:32] VITALS: BP 124/59; PULSE 61; RESP 18; TEMP 36.6; O2SAT 94; BMI 33.4
--- NOTE | 2024-02-11 11:23 | EKG12_ITS ---
Test Reason : SOB Blood Pressure : / mmHG Vent. Rate : 065 BPM Atrial Rate : 000 BPM P-R Int : 000 ms QRS Dur : 090 ms QT Int : 452 ms P-R-T Axes : 000 062 -56 degrees QTc Int : 470 ms Atrial fibrillation Nonspecific ST and T wave abnormality Prolonged QT Abnormal ECG Confirmed by RIA SMITH, VICTORIANO ([id number]), publications editor AMPARO MALHOTRA ([id number]) on 02/13/2024 7:06:12 AM Referred By: CRISTOBAL Confirmed By:VICTORIANO ROLLINS MD
--- NOTE | 2024-02-11 11:45 | RAD_ITS ---
EXAM: XR CHEST, 1 VIEW CLINICAL INDICATION: chest pain TECHNIQUE: Frontal view of the chest. COMPARISON: XR Chest dated 01/26/2024 FINDINGS: LUNGS AND PLEURAL SPACES: Mild patchy airspace opacification of both lungs again seen which may represent acute or chronic inflammatory/infectious change. HEART: Stable borderline cardiomegaly. MEDIASTINUM: No mediastinal or hilar mass. BONES/JOINTS: Surgical fixation of the right clavicle again seen. RAD/Chest 1 View (Portable) IMPRESSION: No interval change. Electronically Signed: Dennis Weiss MD at 12:09 EDT ,
[2024-02-11 11:50] LABS: Absolute Lymphocyte Count 1.26 X10^3/uL (0.83-4.51); Absolute Neutrophil Count 5.5 X10^3/uL (2.0-7.7); Basophil# 0.05 X10^3/uL; Basophil% 0.6 % (0-1); Eosinophil# 0.09 X10^3/uL; Eosinophils% 1.1 % (0-5); Hematocrit 24.4 % (40-54); Lymphocyte # 1.26 X10^3/ul (0.83-4.51); Mean Corp Hgb Conc 28.7 g/dL (32-36); Mean Corpuscular Hgb 23.6 pg (27.0-32.0); Mean Corpuscular Volume 82.2 fL (80-94); Mean Platelet Vol. 10.3 fl (6.2-12.0); Monocyte# 0.98 X10^3/uL; Monocyte% 12.4 % (0-10); NRBC Flagged by Analyzer 0 % (0-5); Neutrophil # 5.45 X10^3/uL (2.7-7.7); Neutrophil % 69.1 % (47-70); Platelet Count 308 K/mm3 (150-450); RBC Distribution Width CV 16.6 % (11.6-14.6); RBC Distribution Width SD 49.7 fl (35.1-43.9); Red Blood Count 2.97 M/mm3 (4.6-6.2); White Blood Count 7.9 K/mm3 (4.4-11.0)
--- NOTE | 2024-02-11 11:56 | ED.VIS.DYS ---
HPI History of Present Illness Chief Complaint: Weakness Narrative Narrative: 88-year-old male with history of CAD, CHF, diabetes, CKD presenting with dyspnea and feeling weak. He states he is having trouble getting around because he is so short of breath. Today he states he felt like he was going to faint. He states he is not having any chest pain. He has not a fever or chills. He has a mild cough. His legs are more swollen than usual. He reports a 10 pound weight gain. He does not wear oxygen at home at baseline. [facility] Medical History (HFpEF) heart failure with preserved ejection fraction Abdominal aortic aneurysm (AAA) Acute cystitis with hematuria Allergic rhinitis Ambulates with cane Anemia Arthritis Asthma Asthma-COPD overlap syndrome Atherosclerotic heart disease of unga coronary artery without angina pectoris Back pain BiPAP (biphasic positive airway pressure) dependence Cancer Carotid bruit Chest pain Chronic constipation Chronic cough Chronic kidney disease Colon polyp Colonic mass Constipation COPD (chronic obstructive pulmonary disease) Coronary artery disease Daytime hypersomnia DDD (degenerative disc disease), lumbar Debility DM2 (diabetes mellitus, type 2) ALMEIDA (dyspnea on exertion) Dyslipidemia Easy bruising Essential (primary) hypertension Fatigue Former smoker Frequent hospital admissions Gastroesophageal reflux disease History of edema History of heart attack History of hiatal hernia History of irregular heartbeat History of pain when walking History of renal disease History of steroid therapy History of stress test Hoarseness Hyperlipidemia Injury of back Kidney stone Leg cramps Lightheadedness Obstructive sleep apnea MARIXA (obstructive sleep apnea) Overweight Patellar bursitis of right knee Peripheral vascular disease of extremity with claudication Pleural effusion Pneumonia Pre-syncope PVD (peripheral vascular disease) Rectus sheath hematoma Recurrent urinary tract infection Restless legs syndrome Right leg swelling Seasonal allergies Shortness of breath on exertion Sleep apnea Somatic dysfunction of pelvic region Urinary retention Walker as ambulation aid Wears dentures Wears glasses Wears hearing aid Home Medications ammonium lactate 12 % lotion 1 applic topical QD-BID PRN dry skin 02/06/18 [History Last Taken Unknown] handicap placcard #1 ea 09/28/19 [Rx Last Taken Unknown] ascorbate calcium (vitamin C) 500 mg tablet 500 mg PO DAILY Bone strength 05/03/20 [History Last Taken 03/09/22] coenzyme Q10 100 mg capsule (Co Q-10) 100 mg PO DAILY 05/03/20 [History Last Taken Unknown] cholecalciferol (vitamin D3) 100 mcg (4,000 unit) tablet 100 mcg PO DAILY 11/03/20 [History Last Taken Unknown] spacer #1 ea 01/12/21 [Rx Last Taken Unknown] aspirin 81 mg chewable tablet 81 mg PO QHS heart health 05/30/22 [History Last Taken Unknown] nitroglycerin 0.4 mg sublingual tablet (Nitrostat) 0.4 mg sublingual Q5-15M PRN chest pain #25 tabs 06/08/22 [Rx Last Taken Unknown] ipratropium 0.5 mg-albuterol 3 mg (2.5 mg base)/3 mL nebulization soln 3 ml inhalation 4X/DAY PRN PRN shortness of breath or wheezing #90 mL 08/03/22 [Rx Last Taken Unknown] montelukast 10 mg tablet 10 mg PO QHS Respiratory #90 tabs 04/24/23 [Rx Last Taken Unknown] atorvastatin 40 mg tablet 40 mg PO QODAY cholesterol #45 tabs 05/23/23 [Rx Last Taken Unknown] carvedilol 25 mg tablet 25 mg PO BID #180 tabs 05/23/23 [Rx Last Taken Unknown] lancets #180 ea 07/18/23 [Rx Last Taken Unknown] amlodipine 10 mg tablet 10 mg PO DAILY This is a dose increase #90 tabs 08/28/23 [Rx Last Taken Unknown] blood sugar diagnostic (Mitek Systemsuch Ultra Test strips) #180 ea 09/16/23 [Rx Last Taken Unknown] budesonide-formoterol HFA 160 mcg-4.5 mcg/actuation aerosol inhaler (Symbicort) 2 puff inhalation BID #1 ea 10/23/23 [Rx Last Taken Unknown] ipratropium bromide 42 mcg (0.06 %) nasal spray 2 spray intranasal TID-QID PRN allergy symptoms #15 mL 10/23/23 [Rx Last Taken Unknown] pantoprazole 40 mg tablet,delayed release 40 mg PO DAILY reflux #90 tabs 11/19/23 [Rx Last Taken Unknown] ipratropium bromide 0.02 % solution for inhalation 2.5 ml inhalation Q6H PRN shortness of breath or wheezing #150 mL 12/06/23 [Rx Last Taken Unknown] apixaban 2.5 mg tablet (Eliquis) 2.5 mg PO BID #90 tabs 12/12/23 [Rx Last Taken Unknown] loratadine 10 mg tablet 10 mg PO DAILY #90 tabs 12/16/23 [Rx Last Taken Unknown] hydralazine 100 mg tablet 100 mg PO BID #180 tabs 12/26/23 [Rx Last Taken Unknown] albuterol sulfate 90 mcg/actuation aerosol inhaler (Ventolin HFA) 2 inh inhalation Q4H PRN shortness of breath or wheezing #18 grams 01/01/24 [Rx Last Taken Unknown] ipratropium 0.5 mg-albuterol 3 mg (2.5 mg base)/3 mL nebulization soln 3 ml inhalation Q4H PRN PRN SOB &/OR WHEEZING #180 mL 01/01/24 [Rx Last Taken Unknown] magnesium citrate (OneLAX Magnesium Citrate oral solution) 300 ml PO ONCE #296 mL 01/02/24 [Rx Last Taken Unknown] pen needle, diabetic 31 gauge x 1/4 (1st Tier Unifine Pentips) #100 ea 01/15/24 [Rx Last Taken Unknown] isosorbide mononitrate 30 mg tablet,extended release 24 hr 30 mg PO DAILY #90 tabs 01/22/24 [Rx Last Taken Unknown] furosemide 40 mg tablet 40 mg PO BIDLX 30 days #60 tabs 01/29/24 [Rx Last Taken Unknown] insulin lispro 100 unit/mL subcutaneous pen (Humalog KwikPen (U-100) Insulin) 15 unit (0.15 mL) subcut TIDAC #15 mL 01/29/24 [Rx Last Taken Unknown] prednisone 10 mg tablet 10 mg PO DAILY #30 tabs 01/29/24 [Rx Last Taken Unknown] sennosides 8.6 mg-docusate sodium 50 mg tablet (Stool Softener-Stimulant Laxative) 2 tab PO BID #0 tabs 01/29/24 [Rx Last Taken Unknown] nystatin 100,000 unit/gram topical cream 1 applic topical DAILY PRN rash #15 grams 02/06/24 [Rx Last Taken Unknown] ferrous sulfate 325 mg (65 mg iron) tablet 325 mg PO Q OTHER DAY #45 tabs 02/10/24 [Rx Last Taken Unknown] insulin glargine 100 unit/mL (3 mL) subcutaneous pen (Lantus Solostar U-100 Insulin) 22 unit (0.22 mL) subcut QAM 1 month #15 mL 02/10/24 [Rx Last Taken Unknown] Allergy/AdvReac Type Severity Reaction Status Date / Time cilostazol [From Pletal] Allergy Unknown Verified 02/11/24 10:39 felodipine Allergy Hives Verified 02/11/24 10:39 levofloxacin Allergy Hives Verified 02/11/24 10:39 Sulfa (Sulfonamide Allergy Unknown Verified 02/11/24 10:39 Antibiotics) Family History Father Diabetes Cancer Prostate cancer Mother Dementia Brother Parkinsons Brother Cancer Surgical History H/O aortic aneurysm repair (11/1998) H/O vascular surgery History of coronary artery stent placement (02/17/08) History of endarterectomy (07/2018) History of hernia repair History of left heart catheterization (03/2014) History of surgical procedure History of transurethral resection of prostate History of vascular surgery (08/2018) Social History household members: spouse 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 status: 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 Smoking Status: Former smoker quit date: 08/07/08 pack-years: 2 Tobacco: How many years used: 52 Electronic Cigarette Use: not used how long ago did patient quit smokin years ago alcohol intake: current alcohol intake frequency: holidays/special occasions only details: hx of alcohol abuse substance use type: does not use caffeine: No what type of physical activity do you participate in: other details: Nustep frequency: 5-6 times per week duration: 15-30 minutes/day seatbelt use: always do you feel safe at home: Yes ROS ROS ED Constitutional Constitutional ED: Denies chills, fever(s) or sweats Eyes Eyes: Denies blurry vision or change in vision ENT ENT ED: Denies ear pain or sore throat Cardiovascular Cardiovascular: Reports other Details: Near syncope ; Denies chest pain, palpitations or racing heartbeat Respiratory/Chest Respiratory/Chest: Reports cough and dyspnea; Denies sputum Gastrointestinal Gastrointestinal: Denies abdominal pain, constipation, diarrhea, nausea or vomiting Genitourinary Genitourinary ED: Denies dysuria, hematuria or urinary frequency Musculoskeletal Musculoskeletal: Denies arthralgias, myalgias or neck pain Integumentary Denies abscess, Abrasions or rash Neurologic Neurologic: Denies headache(s), paresthesias or weakness Psychiatric Psychiatric: Denies anxiety, depression, suicidal ideation or suicidal thoughts Endocrine Endocrinology: Denies polydipsia or polyuria EXAM Physical Exam Const Vital Signs: 02/11/24 10:32 02/11/24 10:41 02/11/24 11:44 Temperature 98 F Temperature Source Oral Pulse Rate 61 Respiratory Rate 18 Respiratory Effort Normal Non-Labored Respiratory Pattern Normal Blood Pressure 124/59 H Blood Pressure Mean 80 Pulse Ox 94 Oxygen Delivery Method Room Air Room Air 02/11/24 12:31 02/11/24 14:00 02/11/24 15:07 Temperature 96.9 F L Temperature Source Pulse Rate 63 82 63 Respiratory Rate 19 H 20 H 20 H Respiratory Effort Respiratory Pattern Blood Pressure 147/71 H 157/96 H 142/74 H Blood Pressure Mean 96 116 96 Pulse Ox 98 96 Oxygen Delivery Method Room Air Room Air Positive well nourished General Appearance ED: NAD HEENT Reports moist mucous membranes Eyes PERRL and EOMs intact bilaterally Resp normal respiratory effort Auscultation: diminished lung sounds bilateral Cardio regular rate and regular rhythm Extremity General Extremety ED: Yes edema General Extremity: edema Neuro oriented x3 and CN's II-XII intact bilaterally Sensorium / Orientation: alert Motor Exam: general weakness Psych mental status grossly normal MDM MDM MDM Narrative Medical decision making narrative: Patient presenting with shortness of breath which is worse with exertion. Differential includes ACS, CHF, pneumonia, dehydration, anemia, electrolyte abnormalities, hyperglycemia. CBC was obtained to assess white blood cell count, hemoglobin, platelets. BMP to assess renal function, electrolytes, glucose. High-sensitivity troponin and EKG to assess for ischemia/arrhythmia. BNP to assess for CHF. Chest x-ray to rule out pneumonia or CHF. Will ambulate patient on pulse ox to see if he is hypoxic. CBC shows normal white blood cell count 7.9. Hemoglobin stable at 7.0. Creatinine slightly higher than before at 2.8. High-sensitivity troponin 12 and delta troponin 13. Urinalysis negative for infection. Chest x-ray on my interpretation shows nothing acute. Radiology interpretation agrees. BNP is not quite as elevated as previously at 643.5. Patient's now in the room she stated that he was short of breath at home when he was sitting so he get up and walk across the room and became more short of breath. She states he was not using his walker at some point in the walk and he tried to walk out to the deck without the walker but she stopped them from doing so. We discussed his workup at length and since he is ambulatory with a normal pulse ox at 96% and his labs appear baseline I felt there was no benefit to admission. I discussed the case with Dr. Dr. Pierre who is the patient's program control analyst. He recommended that she follow-up tomorrow as he already has an appointment at 8:30 in the morning. No medications were changed. Patient discharged stable condition. Impression 1. CHF 2. Lightheadedness 3. Dyspnea Lab Data Attestation: I reviewed the patient's lab results. Labs: Laboratory Results - last 24 hr 02/11/24 02/11/24 02/11/24 10:20 12:30 13:20 WBC 7.9 RBC 2.97 L Hgb 7.0 L Hct 24.4 L MCV 82.2 MCH 23.6 L MCHC 28.7 L RDW Std Deviation 49.7 H RDW Coeff of Justin 16.6 H Plt Count 308 MPV 10.3 Immature Gran % (Auto) 0.800 Neut % (Auto) 69.1 Lymph % (Auto) 16.0 L [place] % (Auto) 12.4 H Eos % (Auto) 1.1 Baso % (Auto) 0.6 Absolute Neuts (auto) 5.5 Absolute Lymphs (auto) 1.26 Nucleated RBC % 0 Sodium 134 L Potassium 4.7 Chloride 101 Carbon Dioxide 25.0 Anion Gap 8 BUN 57 H Creatinine 2.80 H Estim Creat Clear Calc 21.68 Est GFR (MDRD) Af Amer 28 L Est GFR (MDRD) Non-Af 23 L BUN/Creatinine Ratio 20.4 H Glucose 302 H Calcium 8.6 Troponin I High Sens 12 13 B-Natriuretic Peptide 643.5 H Urine Color Yellow Urine Clarity Sl. Cloudy Urine pH 6.5 Ur Specific [place] 1.010 Urine Protein 15 H Urine Glucose (UA) Normal Urine Ketones Negative Urine Occult Blood Negative Urine Nitrite Negative Urine Bilirubin Negative Urine Urobilinogen Normal Ur Leukocyte Esterase 500 H Urine RBC 0 SEEN Urine WBC 5-10 SEEN Ur Squamous Epith Cells 0-5 SEEN Urine Bacteria 1+ Urine Mucus 1+ Radiography Diagnostic Testing: Clinical Impression(s) from Imaging Studies Chest X-Ray 02/11/24 11:45 IMPRESSION: No interval change. Electronically Signed: Dennis Weiss MD at 12:09 EDT Reading Location ID and State: [address] [place] [address] Tel , Service support , Discharge Plan Triage Chief Complaint: Weakness ED Provider: Adelfo Obrien Dx/Rx/DC Orders Instructions: ED Heart Failure, Congestive (CHF), ED Weakness (Uncertain Cause) Prescriptions: No Action ammonium lactate 12 % lotion 1 applic TOPICAL QD-BID PRN (Reason: dry skin ) (DME) handicap placcard Qty: 1 0RF Rx Instructions: Lifetime: debility coenzyme Q10 [Co Q-10] 100 mg capsule 100 mg PO DAILY ascorbate calcium (vitamin C) 500 mg tablet 500 mg PO DAILY cholecalciferol (vitamin D3) 100 mcg (4,000 unit) tablet 100 mcg (4,000 unit) tablet 100 mcg PO DAILY (DME) spacer See Rx Instructions .ROUTE .MEDSUPPLY Qty: 1 0RF Rx Instructions: As directed ipratropium bromide 42 mcg (0.06 %) spray,non-aerosol 2 spray INTRANASAL TID-QID PRN (Reason: allergy symptoms) Qty: 15 6RF Rx Instructions: nasal drip - administer into each nostril; wait 30 seconds between sprays budesonide-formoterol [Symbicort] 160-4.5 mcg/actuation HFA aerosol inhaler 2 puff inhalation BID Qty: 1 3RF Rx Instructions: administer with spacer, rinse mouth after each use (DME) OneTouch Ultra Test Strip See Rx Instructions .Route Qty: 180 1RF Rx Instructions: Check twice a day. (DME) lancets Misc See Rx Instructions .Route Qty: 180 1RF Rx Instructions: twice daily hydralazine 100 mg tablet 100 mg PO BID Qty: 180 3RF Eliquis 2.5 mg tablet 2.5 mg PO BID Qty: 90 1RF magnesium citrate [OneLAX Magnesium Citrate] Solution 300 ml PO ONCE Qty: 296 0RF Rx Instructions: take 1/2 bottle , if no response in 4-6 hours, then drink the rest of the bottle albuterol sulfate [Ventolin HFA] 90 mcg/actuation HFA aerosol inhaler 2 inh INHALATION Q4H PRN (Reason: shortness of breath or wheezing) Qty: 18 6RF ipratropium-albuterol 0.5 mg-3 mg(2.5 mg base)/3 mL solution for nebulization 3 ml inhalation Q4H PRN PRN (Reason: SOB &/OR WHEEZING) Qty: 180 6RF aspirin 81 mg tablet,chewable 81 mg PO QHS Patient Comments: antiplatelet sennosides-docusate sodium [Stool Softener-Stimulant Laxat] 8.6-50 mg Tablet 2 tab PO BID Qty: 0 0RF insulin lispro [Humalog KwikPen Insulin] 100 unit/mL Insulin Pen 15 unit subcut TIDAC Qty: 15 2RF Rx Instructions: Hold if glucose less than 130 mg/dl furosemide 40 mg Tablet 40 mg PO BIDLX 30 Days Qty: 60 1RF Rx Instructions: Hold for NARENDRA prednisone 10 mg tablet 10 mg PO DAILY Qty: 30 0RF Rx Instructions: 40 mg for 3 days 30 mg for 3 days, 20 mg for 3 days,and 10 mg for 3 days nitroglycerin [Nitrostat] 0.4 mg tablet, sublingual 0.4 mg SUBLINGUAL Q5-15M PRN (Reason: chest pain) Qty: 25 2RF ipratropium-albuterol 0.5 mg-3 mg(2.5 mg base)/3 mL solution for nebulization 3 ml inhalation 4X/DAY PRN PRN (Reason: shortness of breath or wheezing) Qty: 90 6RF montelukast 10 mg tablet 10 mg PO QHS Qty: 90 3RF carvedilol 25 mg tablet 25 mg PO BID Qty: 180 3RF Rx Instructions: must administer with a meal/food atorvastatin 40 mg tablet 40 mg PO QODAY Qty: 45 3RF amlodipine 10 mg tablet 10 mg PO DAILY Qty: 90 3RF pantoprazole 40 mg tablet,delayed release (DR/EC) 40 mg PO DAILY Qty: 90 1RF ipratropium bromide 0.02 % solution 2.5 ml inhalation Q6H PRN (Reason: shortness of breath or wheezing) Qty: 150 11RF loratadine 10 mg tablet 10 mg PO DAILY Qty: 90 0RF (DME) pen needle, diabetic [1st Tier Unifine Pentips] 31 gauge x 1/4 needle See Rx Instructions .Route Qty: 100 1RF Rx Instructions: daily isosorbide mononitrate 30 mg tablet extended release 24 hr 30 mg PO DAILY Qty: 90 1RF nystatin 100,000 unit/gram cream 1 applic topical DAILY PRN (Reason: rash) Qty: 15 0RF ferrous sulfate 325 mg (65 mg iron) tablet 325 mg PO Q OTHER DAY Qty: 45 1RF insulin glargine [Lantus Solostar U-100 Insulin] 100 unit/mL (3 mL) insulin pen 22 unit subcut QAM 30 Days Qty: 15 0RF Primary Care Provider: Carolynn Whitman Referrals: Carolynn Whitman MD [Primary Care Provider] - Disposition Disposition: Home, Self Care Discharge Date/Time: 02/11/24 15:08
[2024-02-11 11:57] LABS: Anion Gap 8 (5-15); BUN 57 mg/dL (7-18); BUN/Creat Ratio 20.4 RATIO (10-20); Calcium,Total 8.6 mg/dL (8.5-10.1); Chloride 101 mmol/L (98-107); EST Glomerular Filtration Rate 23 mL/min (>60); Est Glom Filt Rate - Afr Amer 28 mL/min (>60); Estimated Creatinine Clearance 21.68 ml/min; Glucose 302 mg/dL (74-106); Potassium 4.7 mmol/L (3.5-5.1); Sodium Level 134 mmol/L (136-145); Troponin-I HS (w/2H Reflex) 12 pg/mL (3.0-78.0)
[2024-02-11 12:16] LABS: BNP,B-Type NATRIURETIC PEPTIDE 643.5 pg/mL (0-100)
[2024-02-11 12:29] VITALS: O2SAT 96
[2024-02-11 12:31] VITALS: BP 147/71; PULSE 63; RESP 19; O2SAT 98
[2024-02-11 12:38] LABS: Red Blood Cells-Urine 0 SEEN /hpf (0-5)
[2024-02-11 12:43] LABS: Color, Urine Yellow (Yellow); Glucose, Dipstick Normal (Normal); Ketone-Dipstick Negative (Negative); Leukocyte Esterase-Dipstick 500 /ul (Negative); Nitrite-Dipstick Negative (Negative); Occult Blood-Urine Negative /ul (Negative); Protein-Dipstick 15 mg/dl (Negative); Urine Bilirubin Dipstick Negative (Negative); Urine Clarity Sl. Cloudy (Clear); Urine Urobilinogen Normal (Normal); Urine pH 6.5 (5.0 - 8.0)
[2024-02-11 12:53] LABS: Bacteria 1+ /hpf (None Seen); Mucous, Urine 1+ /hpf (<or=2+); Squamous Epithelial Cells - UA 0-5 SEEN /hpf (0-5); White Blood Cells 5-10 SEEN /hpf (0-5)
[2024-02-11 13:32] LABS: Reflex Troponin-HS? (from REC) Y
[2024-02-11 13:47] LABS: Troponin-I HS 13 pg/mL (3.0-78.0)
[2024-02-11 14:00] VITALS: BP 157/96; PULSE 82; RESP 20
[2024-02-11 15:07] VITALS: BP 142/74; PULSE 63; RESP 20; TEMP 36.1; O2SAT 96
== END 2024-02-11 15:08 | disposition home or self-care (01) ==
PROVIDERS: Emergency Provider Student in an Organized Health Care Education/Training Program; PCP Internal Medicine; Visit Provider Student in an Organized Health Care Education/Training Program
DX: I13.0 Hypertensive heart and chronic kidney disease with heart failure and stage 1 through stage 4 chronic kidney disease, or unspecified chronic kidney disease (principal); I50.32 Chronic diastolic (congestive) heart failure; E11.22 Type 2 diabetes mellitus with diabetic chronic kidney disease; Z79.4 Long term (current) use of insulin; R42 Dizziness and giddiness; I25.10 Atherosclerotic heart disease of native coronary artery without angina pectoris; E78.5 Hyperlipidemia, unspecified; G47.33 Obstructive sleep apnea (adult) (pediatric); Z79.899 Other long term (current) drug therapy; Z95.5 Presence of coronary angioplasty implant and graft; Z87.891 Personal history of nicotine dependence
CPT/HCPCS: 71045; 80048; 81001; 83880; 84484; 85025; 93005; 99284; A4216

== ENCOUNTER → 2024-02-12 | Outpatient (CLI) | payer MEDICARE, SELFPAY | END | disposition home or self-care (01) | PROVIDERS: PCP Internal Medicine; Referring Provider Physician Assistant Medical; Visit Provider Physician Assistant Medical | DX: D64.9 Anemia, unspecified (principal) | CPT/HCPCS: 36415; 86850; 86900; 86901; 86920; 86922 ==

== ENCOUNTER 2024-02-13 10:54 | Outpatient (CLI) | payer MEDICARE, SELFPAY ==
[2024-02-13 11:23] VITALS: BP 130/59; PULSE 61; RESP 18; TEMP 36.3; O2SAT 94; BMI 33.4
[2024-02-13 11:48] VITALS: BP 120/56; PULSE 62; RESP 16; TEMP 36.1; O2SAT 95
[2024-02-13 12:48] VITALS: BP 138/51; PULSE 73; RESP 16; TEMP 36.3; O2SAT 96
[2024-02-13 13:48] VITALS: BP 136/55; PULSE 60; RESP 16; TEMP 36.6; O2SAT 97
[2024-02-13] MEDS: Furosemide 40 MG/4 ML Vial IV (13:57)
== END 2024-02-13 10:55 | disposition home or self-care (01) ==
LOC: MEDOUTP 10:54
PROVIDERS: PCP Internal Medicine; Referring Provider Physician Assistant Medical; Visit Provider Physician Assistant Medical
DX: D64.9 Anemia, unspecified (principal)
CPT/HCPCS: 36415; 36430; 86850; 86900; 86901; 86920; 86922; J7040; P9016; A4216; J1940

== ENCOUNTER 2024-02-17 12:52 | Outpatient (RCR) | payer MEDICARE, SELFPAY | END 2024-03-06 23:59 | LOC: NS 12:52 | PROVIDERS: PCP Internal Medicine; Referring Provider Internal Medicine; Visit Provider Internal Medicine | DX: Z71.3 Dietary counseling and surveillance (principal); I12.9 Hypertensive chronic kidney disease with stage 1 through stage 4 chronic kidney disease, or unspecified chronic kidney disease; E11.22 Type 2 diabetes mellitus with diabetic chronic kidney disease; N18.32 Chronic kidney disease, stage 3b | CPT/HCPCS: 97802 ==

== ENCOUNTER → 2024-02-24 | Outpatient (CLI) | payer MEDICARE, SELFPAY ==
[2024-02-24 16:11] LABS: Anion Gap 8 (5-15); BUN 71 mg/dL (7-18); BUN/Creat Ratio 28.1 RATIO (10-20); Calcium,Total 9.6 mg/dL (8.5-10.1); Chloride 95 mmol/L (98-107); Creatinine, Serum 2.53 mg/dL (0.70-1.30); EST Glomerular Filtration Rate 26 mL/min (>60); Est Glom Filt Rate - Afr Amer 31 mL/min (>60); Glucose 75 mg/dL (74-106); Potassium 3.1 mmol/L (3.5-5.1); Sodium Level 137 mmol/L (136-145)
[2024-02-24 16:15] LABS: Protein, Urine (Random) 18.3 mg/dL (<11.9); Protein:Creat Ratio 305 mg/g CRE (0-200)
== END | disposition home or self-care (01) ==
LOC: MTLAB 14:11
PROVIDERS: PCP Internal Medicine; Referring Provider Internal Medicine Nephrology; Visit Provider Internal Medicine Nephrology
DX: N18.4 Chronic kidney disease, stage 4 (severe) (principal)
CPT/HCPCS: 36415; 80048; 82570; 84156

== ENCOUNTER → 2024-03-03 | Outpatient (CLI) | payer MEDICARE, SELFPAY ==
[2024-03-03 19:22] LABS: Anion Gap 11 (5-15); BUN 74 mg/dL (7-18); BUN/Creat Ratio 25.8 RATIO (10-20); Calcium,Total 9.9 mg/dL (8.5-10.1); Chloride 97 mmol/L (98-107); Creatinine, Serum 2.87 mg/dL (0.70-1.30); EST Glomerular Filtration Rate 22 mL/min (>60); Est Glom Filt Rate - Afr Amer 27 mL/min (>60); Glucose 154 mg/dL (74-106); Sodium Level 135 mmol/L (136-145)
== END | disposition home or self-care (01) ==
LOC: MTLAB 14:20
PROVIDERS: PCP Internal Medicine; Referring Provider Internal Medicine Nephrology; Visit Provider Internal Medicine Nephrology
DX: E87.6 Hypokalemia (principal)
CPT/HCPCS: 36415; 80048

== ENCOUNTER → 2024-03-10 | Outpatient (CLI) | payer MEDICARE, SELFPAY ==
[2024-03-10 18:01] LABS: Hematocrit 29.2 % (40-54); Hemoglobin 10.4 g/dL (13.0-16.5)
== END | disposition home or self-care (01) ==
LOC: MTLAB 14:50
PROVIDERS: PCP Internal Medicine; Referring Provider Physician Assistant Medical; Visit Provider Physician Assistant Medical
DX: D64.9 Anemia, unspecified (principal)
CPT/HCPCS: 36415; 85014; 85018

== ENCOUNTER → 2024-03-23 | Outpatient (CLI) | payer MEDICARE, SELFPAY ==
[2024-03-23 18:32] LABS: Hematocrit 28.3 % (40-54); Hemoglobin 10.8 g/dL (13.0-16.5)
[2024-03-23 18:50] LABS: Protein:Creat Ratio 326 mg/g CRE (0-200)
[2024-03-23 18:51] LABS: Anion Gap 7 (5-15); BUN 42 mg/dL (7-18); BUN/Creat Ratio 19.3 RATIO (10-20); Calcium,Total 9.8 mg/dL (8.5-10.1); Chloride 103 mmol/L (98-107); Creatinine, Serum 2.18 mg/dL (0.70-1.30); EST Glomerular Filtration Rate 31 mL/min (>60); Est Glom Filt Rate - Afr Amer 37 mL/min (>60); Glucose 71 mg/dL (74-106); Potassium 4.1 mmol/L (3.5-5.1); Sodium Level 139 mmol/L (136-145)
== END | disposition home or self-care (01) ==
PROVIDERS: Physician Assistant Medical; PCP Internal Medicine; Referring Provider Internal Medicine Nephrology; Visit Provider Internal Medicine Nephrology
DX: N18.4 Chronic kidney disease, stage 4 (severe) (principal)
CPT/HCPCS: 36415; 80048; 82570; 84156; 85014; 85018

== ENCOUNTER → 2024-03-30 | Outpatient (CLI) | payer MEDICARE, SELFPAY ==
[2024-03-30 13:19] LABS: Absolute Lymphocyte Count 1.47 X10^3/uL (0.83-4.51); Absolute Neutrophil Count 4.6 X10^3/uL (2.0-7.7); Basophil# 0.04 X10^3/uL; Basophil% 0.5 % (0-1); Eosinophil# 0.22 X10^3/uL; Hemoglobin 10.8 g/dL (13.0-16.5); Lymphocyte # 1.47 X10^3/ul (0.83-4.51); Lymphocyte % 20.2 % (19-41); Mean Corp Hgb Conc 33.8 g/dL (32-36); Mean Corpuscular Hgb 31.7 pg (27.0-32.0); Mean Corpuscular Volume 93.8 fL (80-94); Mean Platelet Vol. 9.9 fl (6.2-12.0); Monocyte# 0.92 X10^3/uL; Monocyte% 12.6 % (0-10); NRBC Flagged by Analyzer 0 % (0-5); Neutrophil # 4.61 X10^3/uL (2.7-7.7); Neutrophil % 63.3 % (47-70); POSITIVE MORPHOLOGY YES; Platelet Count 297 K/mm3 (150-450); RBC Distribution Width CV 21.4 % (11.6-14.6); RBC Distribution Width SD 62.9 fl (35.1-43.9); Red Blood Count 3.41 M/mm3 (4.6-6.2); White Blood Count 7.3 K/mm3 (4.4-11.0)
[2024-03-30 13:23] LABS: Differential Indicated SCAN CRITERIA MET
[2024-03-30 13:44] LABS: BNP,B-Type NATRIURETIC PEPTIDE 611.6 pg/mL (0-100)
[2024-03-30 13:45] LABS: Anion Gap 6 (5-15); BUN 43 mg/dL (7-18); BUN/Creat Ratio 18.9 RATIO (10-20); Calcium,Total 9.4 mg/dL (8.5-10.1); Chloride 103 mmol/L (98-107); Creatinine, Serum 2.27 mg/dL (0.70-1.30); EST Glomerular Filtration Rate 29 mL/min (>60); Est Glom Filt Rate - Afr Amer 35 mL/min (>60); Glucose 46 mg/dL (74-106); Potassium 4.4 mmol/L (3.5-5.1); Sodium Level 137 mmol/L (136-145)
[2024-03-30 13:59] LABS: Anisocytosis RARE
== END | disposition home or self-care (01) ==
LOC: LAB 12:15
PROVIDERS: PCP Internal Medicine; Referring Provider Nurse Practitioner Gerontology; Visit Provider Nurse Practitioner Gerontology
DX: R06.09 Other forms of dyspnea (principal); I50.30 Unspecified diastolic (congestive) heart failure
CPT/HCPCS: 36415; 80048; 83880; 85025

== ENCOUNTER → 2024-04-07 | Outpatient (CLI) | payer MEDICARE, SELFPAY | END | disposition home or self-care (01) | PROVIDERS: PCP Internal Medicine; Referring Provider Physician Assistant; Visit Provider Physician Assistant | DX: R30.0 Dysuria (principal) | CPT/HCPCS: 87077; 87086; 87088; 87186 ==

== ENCOUNTER 2024-04-20 13:02 | Inpatient (IN) | payer MEDICARE, SELFPAY ==
[2024-04-20] VITALS (13 sets, daily range): BP systolic 123–186; BP diastolic 50–81; PULSE 54–72; RESP 18–25; TEMP 35.5–36.8; O2SAT 94–98; BMI 31.7; BMI 30.5
--- NOTE | 2024-04-20 13:53 | EKG12_ITS ---
Test Reason : DIZZINESS Blood Pressure : / mmHG Vent. Rate : 055 BPM Atrial Rate : 000 BPM P-R Int : 000 ms QRS Dur : 090 ms QT Int : 518 ms P-R-T Axes : 000 055 018 degrees QTc Int : 495 ms Atrial fibrillation with slow ventricular response Nonspecific T wave abnormality Prolonged QT Abnormal ECG Confirmed by RICHA SMITH, FARRAH ([id number]), slot editor AMPARO MALHOTRA ([id number]) on 04/22/2024 10:00:28 AM Referred By: Confirmed By:EUGENIE CHAUDHRY MD
[2024-04-20 14:20] LABS: Absolute Lymphocyte Count 1.12 X10^3/uL (0.83-4.51); Absolute Neutrophil Count 3.8 X10^3/uL (2.0-7.7); Basophil# 0.05 X10^3/uL; Basophil% 0.8 % (0-1); Eosinophil# 0.13 X10^3/uL; Eosinophils% 2.2 % (0-5); Hematocrit 34.1 % (40-54); Hemoglobin 11.4 g/dL (13.0-16.5); Lymphocyte # 1.12 X10^3/ul (0.83-4.51); Mean Corp Hgb Conc 33.4 g/dL (32-36); Mean Corpuscular Volume 92.7 fL (80-94); Mean Platelet Vol. 9.7 fl (6.2-12.0); Monocyte# 0.76 X10^3/uL; Monocyte% 12.9 % (0-10); NRBC Flagged by Analyzer 0 % (0-5); Neutrophil # 3.82 X10^3/uL (2.7-7.7); Neutrophil % 64.8 % (47-70); Platelet Count 246 K/mm3 (150-450); RBC Distribution Width CV 19.8 % (11.6-14.6); RBC Distribution Width SD 58.2 fl (35.1-43.9); Red Blood Count 3.68 M/mm3 (4.6-6.2); White Blood Count 5.9 K/mm3 (4.4-11.0)
[2024-04-20 14:32] LABS: Anion Gap 9 (5-15); BUN 50 mg/dL (7-18); BUN/Creat Ratio 20.6 RATIO (10-20); Calcium,Total 9.2 mg/dL (8.5-10.1); Chloride 98 mmol/L (98-107); Creatinine, Serum 2.43 mg/dL (0.70-1.30); EST Glomerular Filtration Rate 27 mL/min (>60); Est Glom Filt Rate - Afr Amer 33 mL/min (>60); Glucose 196 mg/dL (74-106); Potassium 4.2 mmol/L (3.5-5.1); Sodium Level 133 mmol/L (136-145)
[2024-04-20 14:39] LABS: International Normalized Ratio 1.6; Prothrombin Time (Protime)PT. 19.2 SECONDS (11.7-14.9)
[2024-04-20 14:40] LABS: Partial Thromboplast Time 38.5 Seconds (24.1-36.2)
--- NOTE | 2024-04-20 15:25 | RAD_ITS ---
STUDY: X-RAY CHEST REASON FOR EXAM: Male, 88 years old. Stroke TECHNIQUE: Single AP portable view of the chest. COMPARISON: Comparison is made with prior study dated February 11, 2024. FINDINGS: The patient is status post open reduction internal fixation of the right clavicular fracture. Stable increased interstitial markings in both lungs suggestive of scarring. There is no demonstrated pleural abnormality. Normal size heart. Normal mediastinum and frank. Normal visualized pulmonary arteries. There is atherosclerotic calcification of the aortic arch with tortuosity. There are diffuse degenerative changes of the visualized thoracic spine. Normal visualized ribs, clavicles, and shoulders. There is no demonstrated abnormality of the visualized soft tissue structures of the upper abdomen. RAD/Chest 1 View (Portable) IMPRESSION: Findings suggestive of scarring. No acute abnormality is seen. Electronically Signed: Yemi Clifton MD at 15:37 EDT ,
[2024-04-20 15:50] LABS: Bedside Glucose 153 mg/dL (74-106)
--- NOTE | 2024-04-20 15:56 | EX.ED.DYSGE1 ---
HPI History of Present Illness Chief Complaint: Dizziness Informant: patient Narrative Narrative: Patient is an 88-year-old male with history of heart failure with preserved ejection fraction, dependent diabetes mellitus type 2, recurrent urinary tract infections (currently on a course of linezolid per culture), colonic mass status post resection, atrial fibrillation on long-term Eliquis, COPD and hypertension presenting with low blood sugar and lightheadedness. Patient states this morning around 10 or 11 AM he checked his blood pressure and it was 85/40. Patient states he was feeling lightheaded and weak which is why he checked his blood pressure. His push fluids this morning and notes that he never does a good job drinking water but has been worse lately. Patient currently does not feel particularly lightheaded but just feels blah and feels like my body feels empty. Did have some mild nausea per squad report. Patient has been having worsening of the cough over the past few days. His notes that he actually coughed at night which is unusual for him. Is been productive intermittently of yellow and clear sputum. No fevers reported. Patient also reports an episode of chest pain yesterday on the right side of his chest that radiated up to his neck and face. He stated lasted for about 30 minutes and he took a sublingual nitroglycerin for it and the pain resolved. He does have chronic shortness of breath and denies any change in that. Patient notes that his chronic edema is actually doing better since his mass was removed on March 05 and [facility]. He denies any changes stools and states since he ran out of his iron pill he is no longer having dark stools. He continues to have dysuria despite being on antibiotics for UTI but states not as bad. Denies any fever or chills. Patient states he feels this way whenever his blood pressure goes below 135 systolic. No report of any falls or head injuries. Denies any sensation of vertigo or the room spinning. [facility] Medical History Chronic kidney disease Frequent hospital admissions Fatigue Colonic mass Pleural effusion (HFpEF) heart failure with preserved ejection fraction Pneumonia Colon polyp Lightheadedness Chronic constipation Anemia Constipation Obstructive sleep apnea Coronary artery disease Gastroesophageal reflux disease Allergic rhinitis Hyperlipidemia Urinary retention Debility Wears hearing aid Wears dentures Wears glasses Cancer History of steroid therapy Ambulates with cane Walker as ambulation aid Arthritis Kidney stone History of renal disease Easy bruising Back pain Injury of back History of hiatal hernia Former smoker BiPAP (biphasic positive airway pressure) dependence Sleep apnea Asthma Shortness of breath on exertion Hoarseness Chronic cough Leg cramps History of pain when walking History of edema History of stress test History of heart attack History of irregular heartbeat Acute cystitis with hematuria Recurrent urinary tract infection ALMEIDA (dyspnea on exertion) Chest pain Right leg swelling Patellar bursitis of right knee Asthma-COPD overlap syndrome Abdominal aortic aneurysm (AAA) Peripheral vascular disease of extremity with claudication Rectus sheath hematoma Pre-syncope Essential (primary) hypertension Restless legs syndrome MARIXA (obstructive sleep apnea) Daytime hypersomnia Somatic dysfunction of pelvic region DDD (degenerative disc disease), lumbar Overweight Seasonal allergies Carotid bruit Atherosclerotic heart disease of [place] coronary artery without angina pectoris PVD (peripheral vascular disease) Dyslipidemia DM2 (diabetes mellitus, type 2) COPD (chronic obstructive pulmonary disease) Home Medications ?Medication ?Instructions ?Recorded ?Last Taken ?Type ammonium lactate 12 % lotion 1 applic topical QD-BID PRN dry 02/06/18 Unknown History skin handicap placcard #1 ea 09/28/19 Unknown Rx ascorbate calcium (vitamin C) 500 500 mg PO DAILY Bone strength 05/03/20 04/20/24 History mg tablet coenzyme Q10 100 mg capsule (Co 100 mg PO DAILY supplement 05/03/20 04/20/24 History Q-10) cholecalciferol (vitamin D3) 100 100 mcg PO DAILY supplement 11/03/20 04/20/24 History mcg (4,000 unit) tablet spacer #1 ea 01/12/21 Unknown Rx nitroglycerin 0.4 mg sublingual 0.4 mg sublingual Q5-15M PRN chest 06/08/22 Unknown Rx tablet (Nitrostat) pain #25 tabs montelukast 10 mg tablet 10 mg PO QHS Respiratory #90 tabs 04/24/23 04/19/24 Rx atorvastatin 40 mg tablet 40 mg PO QODAY cholesterol #45 tabs 05/23/23 04/17/24 Rx carvedilol 25 mg tablet 25 mg PO BID a.fib/chf/htn #180 05/23/23 04/20/24 Rx tabs lancets #180 ea 07/18/23 Unknown Rx ipratropium bromide 42 mcg (0.06 2 spray intranasal TID-QID PRN 10/23/23 Unknown Rx %) nasal spray allergy symptoms #15 mL pantoprazole 40 mg tablet,delayed 40 mg PO DAILY reflux #90 tabs 11/19/23 04/20/24 Rx release ipratropium bromide 0.02 % 2.5 ml inhalation Q6H PRN 12/06/23 Unknown Rx solution for inhalation shortness of breath or wheezing #150 mL hydralazine 100 mg tablet 100 mg PO BID hypertension #180 12/26/23 04/20/24 Rx tabs albuterol sulfate 90 mcg/actuation 2 inh inhalation Q4H PRN shortness 01/01/24 Unknown Rx aerosol inhaler (Ventolin HFA) of breath or wheezing #18 grams isosorbide mononitrate 30 mg 30 mg PO DAILY htn/chf #90 tabs 01/22/24 04/20/24 Rx tablet,extended release 24 hr insulin lispro 100 unit/mL 15 unit (0.15 mL) subcut TIDAC dm2 01/29/24 04/20/24 Rx subcutaneous pen (Humalog KwikPen #15 mL (U-100) Insulin) ferrous sulfate 325 mg (65 mg 325 mg PO Q OTHER DAY anemia #45 02/10/24 04/20/24 Rx iron) tablet tabs apixaban 2.5 mg tablet (Eliquis) 2.5 mg PO BID atrial fibrillation 03/13/24 04/20/24 Rx #90 tabs ropinirole 1 mg tablet 1 mg PO QHS restless leg #90 tabs 03/23/24 04/19/24 Rx budesonide-formoterol HFA 160 2 puff inhalation BID copd #3 ea 03/26/24 04/20/24 Rx mcg-4.5 mcg/actuation aerosol inhaler (Symbicort) sennosides 8.6 mg-docusate sodium 2 tab PO BID PRN constipation 1 03/30/24 Unknown Rx 50 mg tablet (Stool month #60 tabs Softener-Stimulant Laxative) pen needle, diabetic 31 gauge x #100 ea 03/31/24 Unknown Rx 1/4 (1st Tier Unifine Pentips) loratadine 10 mg tablet 10 mg PO DAILY allergys #90 tabs 04/05/24 04/20/24 Rx blood sugar diagnostic (OneTouch #180 ea 04/07/24 Unknown Rx Ultra Test strips) linezolid 600 mg tablet 600 mg PO Q12H uti 10 days #20 tabs 04/13/24 04/20/24 Rx insulin glargine-yfgn 100 unit/mL 22 unit (0.22 mL) subcut DAILY dm2 04/16/24 04/19/24 Rx (3 mL) subcutaneous pen #15 mL furosemide 40 mg tablet 80 mg PO BID chf 04/20/24 04/20/24 History ipratropium 0.5 mg-albuterol 3 mg 3 ml inhalation .COMPLEX SOB &/OR 04/20/24 Unknown History (2.5 mg base)/3 mL nebulization WHEEZING soln Allergy/AdvReac Type Severity Reaction Status Date / Time cilostazol (From Pletal) Allergy Unknown Verified 04/20/24 13:03 felodipine Allergy Hives Verified 04/20/24 13:03 levofloxacin Allergy Hives Verified 04/20/24 13:03 Sulfa (Sulfonamide Allergy Unknown Verified 04/20/24 13:03 Antibiotics) Family History Father Diabetes Cancer Prostate cancer Mother Dementia Brother Parkinsons Brother Cancer Surgical History H/O vascular surgery History of surgical procedure History of transurethral resection of prostate History of endarterectomy (07/2018) History of left heart catheterization (03/2014) History of coronary artery stent placement (02/17/08) History of vascular surgery (08/2018) History of hernia repair H/O aortic aneurysm repair (11/1998) Social History household members: spouse 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 status: 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 Smoking Status: Former smoker quit date: 08/07/08 pack-years: 2 Tobacco: How many years used: 52 Electronic Cigarette Use: not used how long ago did patient quit smokin years ago alcohol intake: current alcohol intake frequency: holidays/special occasions only details: hx of alcohol abuse substance use type: does not use caffeine: No what type of physical activity do you participate in: other details: Nustep frequency: 5-6 times per week duration: 15-30 minutes/day seatbelt use: always do you feel safe at home: Yes ROS ROS ED Constitutional Constitutional ED: Denies chills or fever(s) Eyes Eyes: Denies change in vision Cardiovascular Cardiovascular: Denies chest pain Respiratory/Chest Respiratory/Chest: Reports cough, dyspnea, dyspnea on exertion and sputum Gastrointestinal Gastrointestinal: Reports nausea; Denies abdominal pain or vomiting Genitourinary Genitourinary ED: Reports dysuria; Denies hematuria Musculoskeletal Musculoskeletal: Denies arthralgias or myalgias Integumentary Denies rash Neurologic Neurologic: Reports headache(s) and weakness; Denies paresthesias Hematologic/Lymphatic Hematologic/Lymphatic: Reports easy bleeding EXAM Physical Exam Const Vital Signs: 04/20/24 13:03 04/20/24 13:13 04/20/24 13:53 Temperature 96 F L 97.6 F L Temperature Source Temporal Oral Pulse Rate 65 Pulse Rate [Lying] Pulse Rate [Sitting (for 1 minute prior to obtaining)] Pulse Rate [Standing (for 1 minute prior to obtaining)] Respiratory Rate 18 Blood Pressure 123/50 H Blood Pressure [Lying] Blood Pressure [Sitting (for 1 minute prior to obtaining)] Blood Pressure [Standing (for 1 minute prior to obtaining)] Blood Pressure Mean 74 Blood Pressure Mean [Lying] Blood Pressure Mean [Sitting (for 1 minute prior to obtaining)] Blood Pressure Mean [Standing (for 1 minute prior to obtaining)] Pulse Ox 97 97 Oxygen Delivery Method Room Air Room Air 04/20/24 15:02 04/20/24 17:00 04/20/24 17:09 Temperature Temperature Source Pulse Rate 59 L 58 L Pulse Rate [Lying] 54 L Pulse Rate [Sitting (for 1 minute prior to obtaining)] 55 L Pulse Rate [Standing (for 1 minute prior to obtaining)] 57 L Respiratory Rate 22 H 24 H Blood Pressure 158/75 H 166/74 H Blood Pressure [Lying] 166/74 H Blood Pressure [Sitting (for 1 minute prior to obtaining)] 165/69 H Blood Pressure [Standing (for 1 minute prior to obtaining)] 155/72 H Blood Pressure Mean 102 104 Blood Pressure Mean [Lying] 104 Blood Pressure Mean [Sitting (for 1 minute prior to obtaining)] 101 Blood Pressure Mean [Standing (for 1 minute prior to obtaining)] 99 Pulse Ox 97 97 Oxygen Delivery Method Room Air Room Air Positive well nourished and well developed General Appearance ED: well developed and NAD; Negative for pallor HEENT Reports moist mucous membranes Eyes PERRL and EOMs intact bilaterally General Eye ED: Negative for pale conjunctiva Neck supple and no JVD Chest Wall inspection of chest normal Resp normal respiratory effort Resp Narrative: 's fine crackles appreciated at the right lung base Auscultation: Negative for wheezes Cardio regular rate and regular rhythm GI normal to inspection, nondistended, normoactive bowel sounds and non-tender Palpation: soft Extremity normal to inspection General Extremety ED: Negative for edema or tenderness General Extremity: Negative for edema Neuro oriented x3 Neuro Narrative: No drift of the extremities appreciated. Normal coordination. Sensorium / Orientation: alert Motor Exam: Negative for general weakness Psych mental status grossly normal Skin no rashes or lesions noted and no wounds General Skin Exam: Negative for pallor MDM MDM MDM Narrative Medical decision making narrative: Patient is evaluated for lightheadedness and low blood pressure at home. Is currently on linezolid for culture sensitive urinary tract infection but continues to have dysuria. Blood pressure normal in the emergency room. Also an episode of chest pain yesterday. Workup looking for cause of his a transient hypotension including infection/sepsis, pneumonia, urinary tract infection, decompensated heart failure, ACS and Suri abnormality is obtained. Will check orthostatic vital signs. Will give 500 cc fluid bolus. Lab work shows a mild anemia the hemoglobin 11.4 which section mildly above his baseline. Does not have a leukocytosis. BMP is consistent with renal sufficiency with a creatinine of 2.43 however this is chronic for the patient. Is high since troponin is normal at 22 his lactate is normal at 1.4. Patient's BNP is elevated at 503 but actually mildly downtrending. Urinalysis is highly consistent with infection with 50-100 white blood cells and 3+ bacteria. Going to presume that patient has not adequately been treated for his urinary tract infection given that is worsening. Given that he has multidrug-resistant Enterococcus and is already failed the only oral medication (linezolid) I think he would benefit from admission for IV antibiotics. In addition patient does have a history of urinary retention and supposed to self cath at night. He states has not been doing it completely. I question if he has a component of urinary retention which is hindering his ability to recover/adequately treat his urinary tract infection. Will place Edwards catheter for this reason. Patient and agreeable this plan of care. Case is discussed with my physician, Dr. Grayson. Patient started on IV vancomycin in the emergency room. Lab Data Attestation: I reviewed the patient's lab results. Labs: Laboratory Results - last 24 hr 04/20/24 04/20/24 04/20/24 14:04 15:33 16:11 WBC 5.9 RBC 3.68 L Hgb 11.4 L Hct 34.1 L MCV 92.7 MCH 31.0 MCHC 33.4 RDW Std Deviation 58.2 H RDW Coeff of Justin 19.8 H Plt Count 246 MPV 9.7 Immature Gran % (Auto) 0.300 Neut % (Auto) 64.8 Lymph % (Auto) 19.0 [place] % (Auto) 12.9 H Eos % (Auto) 2.2 Baso % (Auto) 0.8 Absolute Neuts (auto) 3.8 Absolute Lymphs (auto) 1.12 Nucleated RBC % 0 PT 19.2 H INR 1.6 APTT 38.5 H Sodium 133 L Potassium 4.2 Chloride 98 Carbon Dioxide 26.0 Anion Gap 9 BUN 50 H Creatinine 2.43 H Est GFR (MDRD) Af Amer 33 L Est GFR (MDRD) Non-Af 27 L BUN/Creatinine Ratio 20.6 H Glucose 196 H Lactic Acid 1.4 Calcium 9.2 Troponin I High Sens 22 B-Natriuretic Peptide 503.1 H Urine Color Urine Clarity Urine pH Ur Specific [place] Urine Protein Urine Glucose (UA) Urine Ketones Urine Occult Blood Urine Nitrite Urine Bilirubin Urine Urobilinogen Ur Leukocyte Esterase Urine RBC Urine WBC Ur Squamous Epith Cells Urine Bacteria Urine Mucus POC Glucose 153 H 04/20/24 16:30 WBC RBC Hgb Hct MCV MCH MCHC RDW Std Deviation RDW Coeff of Justin Plt Count MPV Immature Gran % (Auto) Neut % (Auto) Lymph % (Auto) [place] % (Auto) Eos % (Auto) Baso % (Auto) Absolute Neuts (auto) Absolute Lymphs (auto) Nucleated RBC % PT INR APTT Sodium Potassium Chloride Carbon Dioxide Anion Gap BUN Creatinine Est GFR (MDRD) Af Amer Est GFR (MDRD) Non-Af BUN/Creatinine Ratio Glucose Lactic Acid Calcium Troponin I High Sens B-Natriuretic Peptide Urine Color Yellow Urine Clarity Sl. Cloudy Urine pH 6.0 Ur Specific [place] 1.010 Urine Protein 30 H Urine Glucose (UA) Normal Urine Ketones Negative Urine Occult Blood 10 H Urine Nitrite Negative Urine Bilirubin Negative Urine Urobilinogen Normal Ur Leukocyte Esterase 500 H Urine RBC 0-5 SEEN Urine WBC 50-100 SEEN Ur Squamous Epith Cells 0 SEEN Urine Bacteria 3+ Urine Mucus 0 SEEN POC Glucose Radiography Chest X-Ray - ED: 1 View, Read by ED Physician, Read by Radiologist and No Acute Disease Diagnostic Testing: Clinical Impression(s) from Imaging Studies Chest X-Ray 04/20/24 15:25 IMPRESSION: Findings suggestive of scarring. No acute abnormality is seen. Electronically Signed: Yemi Clifton MD at 15:37 EDT , Rhythm Strip Rhythm Strip: A-fib Rate: 56 Ectopy: None EKG Initial EKG: Attestation: I personally reviewed and interpreted this EKG as follows: Interpretation: Atrial Fibrillation Comments: Atrial fibrillation with slow ventricular response at a rate of 55 bpm Normal axis Normal QRS Prolonged QTc of 495 Nonspecific T wave changes, compared to prior EKG on 02/11/2024, no acute changes Prior EKG tracings: available for review Prior: Unchanged Management Discussion w/another healthcare provider: Hospitalist Discharge Plan Dx/Rx/DC Orders Clinical Impression: Recurrent urinary tract infection, Lightheadedness, Near syncope, Failure of outpatient treatment Disposition Disposition: Acute Care Hospital [facility] Discharge Date/Time: 04/20/24 19:32
[2024-04-20] MEDS: 0.9% Normal Saline (500mL Bag) 500 ML 999 ML IV (16:29)
[2024-04-20 16:38] LABS: BNP,B-Type NATRIURETIC PEPTIDE 503.1 pg/mL (0-100); Troponin-I HS 22 pg/mL (3.0-78.0)
[2024-04-20 16:42] LABS: Mucous, Urine 0 SEEN /hpf (<or=2+); Squamous Epithelial Cells - UA 0 SEEN /hpf (0-5)
[2024-04-20 16:44] LABS: Color, Urine Yellow (Yellow); Glucose, Dipstick Normal (Normal); Ketone-Dipstick Negative (Negative); Leukocyte Esterase-Dipstick 500 /ul (Negative); Nitrite-Dipstick Negative (Negative); Occult Blood-Urine 10 /ul (Negative); Protein-Dipstick 30 mg/dl (Negative); Urine Bilirubin Dipstick Negative (Negative); Urine Clarity Sl. Cloudy (Clear); Urine Urobilinogen Normal (Normal)
[2024-04-20 16:48] LABS: Lactic Acid 1.4 mmol/L (0.4-1.9)
[2024-04-20 16:52] LABS: Bacteria 3+ /hpf (None Seen)
[2024-04-20 16:53] LABS: Red Blood Cells-Urine 0-5 SEEN /hpf (0-5); White Blood Cells 50-100 SEEN /hpf (0-5)
[2024-04-20] MEDS: Vancomycin HCl 1,500 MG in 0.9% Normal Saline (500mL Bag) 500 ML 250 MG IV (18:20)
--- NOTE | 2024-04-20 18:58 | PCM.HP.STD ---
HPI - General General Date of Admission: 04/20/24 Date of Service: 04/20/24 Chief Complaint: Lightheadedness HPI Narrative DESIREE ROSAS, is a 88 M who presented to the emergency department [facility] on 04/20/2024 with a chief complaint of lightheadedness that occurred earlier today. Patient reported that about 10 or 11 this morning he checked his blood pressure because he was feeling lightheaded and was found to be 85/40. He indicates that they have been adjusting a lot of his outpatient medications with cardiology. He is also feeling somewhat weak at the time. His states that she pushes him to drink fluids but he never does a good job of drinking much and it has been worse as of late. He was diagnosed with a urinary tract infection. On review he had a urine culture on 04/07/2024 that grew resistant Enterococcus faecalis and he had been on linezolid. The bacteria was susceptible to this however the patient reports he has had continued dysuria and frequency and feels like he is never really gotten improvement despite linezolid. He does have a history of urinary retention and follows with urology (Dr. Matos) and intermittently has to self cath. His reports that he does not self cath as much as he should. He does complain of some lower extremity edema which appears to be chronic and relatively stable. He denies any significant fever or chills. Vital signs on presentation showed a temperature of 96.0, heart rate 65, respiratory rate 18, blood pressure was 123/50, pulse ox was 97% on room air. Orthostatic vitals were performed and were unremarkable. He was noted to have intermittent bradycardia with heart rate in the 30s in the emergency department and therefore was placed on PCU and his Coreg was held. His CBC was unremarkable with no significant left shift noted. Coags were abnormal however the patient is on apixaban. His chemistry showed mild hyponatremia with a sodium of 133, BUN of 50 and a serum creatinine of 2.43 both of which are slightly higher than his baseline serum creatinine of 2.1-2.3. Blood glucose was 196. Lactate was 1.4. Troponin was normal. The BNP was 503 however it is lower than previous and patient is not having any respiratory symptoms. His UA shows some occult blood, leuk esterase with 50-100 white blood cells and 3+ bacteria. He was given 1 dose of IV vancomycin in the emergency department and request for admission was made. [facility] Medical History Chronic kidney disease Frequent hospital admissions Fatigue Colonic mass Pleural effusion (HFpEF) heart failure with preserved ejection fraction Pneumonia Colon polyp Lightheadedness Chronic constipation Anemia Constipation Obstructive sleep apnea Coronary artery disease Gastroesophageal reflux disease Allergic rhinitis Hyperlipidemia Urinary retention Debility Wears hearing aid Wears dentures Wears glasses Cancer History of steroid therapy Ambulates with cane Walker as ambulation aid Arthritis Kidney stone History of renal disease Easy bruising Back pain Injury of back History of hiatal hernia Former smoker BiPAP (biphasic positive airway pressure) dependence Sleep apnea Asthma Shortness of breath on exertion Hoarseness Chronic cough Leg cramps History of pain when walking History of edema History of stress test History of heart attack History of irregular heartbeat Acute cystitis with hematuria Recurrent urinary tract infection ALMEIDA (dyspnea on exertion) Chest pain Right leg swelling Patellar bursitis of right knee Asthma-COPD overlap syndrome Abdominal aortic aneurysm (AAA) Peripheral vascular disease of extremity with claudication Rectus sheath hematoma Pre-syncope Essential (primary) hypertension Restless legs syndrome MARIXA (obstructive sleep apnea) Daytime hypersomnia Somatic dysfunction of pelvic region DDD (degenerative disc disease), lumbar Overweight Seasonal allergies Carotid bruit Atherosclerotic heart disease of [place] coronary artery without angina pectoris PVD (peripheral vascular disease) Dyslipidemia DM2 (diabetes mellitus, type 2) COPD (chronic obstructive pulmonary disease) Home Medications ?Medication ?Instructions ?Recorded ?Last Taken ?Type ammonium lactate 12 % lotion 1 applic topical QD-BID PRN dry 02/06/18 Unknown History skin handicap placcard #1 ea 09/28/19 Unknown Rx ascorbate calcium (vitamin C) 500 500 mg PO DAILY Bone strength 05/03/20 04/20/24 History mg tablet coenzyme Q10 100 mg capsule (Co 100 mg PO DAILY supplement 05/03/20 04/20/24 History Q-10) cholecalciferol (vitamin D3) 100 100 mcg PO DAILY supplement 11/03/20 04/20/24 History mcg (4,000 unit) tablet spacer #1 ea 01/12/21 Unknown Rx nitroglycerin 0.4 mg sublingual 0.4 mg sublingual Q5-15M PRN chest 06/08/22 Unknown Rx tablet (Nitrostat) pain #25 tabs montelukast 10 mg tablet 10 mg PO QHS Respiratory #90 tabs 04/24/23 04/19/24 Rx atorvastatin 40 mg tablet 40 mg PO QODAY cholesterol #45 tabs 05/23/23 04/17/24 Rx carvedilol 25 mg tablet 25 mg PO BID a.fib/chf/htn #180 05/23/23 04/20/24 Rx tabs lancets #180 ea 07/18/23 Unknown Rx ipratropium bromide 42 mcg (0.06 2 spray intranasal TID-QID PRN 10/23/23 Unknown Rx %) nasal spray allergy symptoms #15 mL pantoprazole 40 mg tablet,delayed 40 mg PO DAILY reflux #90 tabs 11/19/23 04/20/24 Rx release ipratropium bromide 0.02 % 2.5 ml inhalation Q6H PRN 12/06/23 Unknown Rx solution for inhalation shortness of breath or wheezing #150 mL hydralazine 100 mg tablet 100 mg PO BID hypertension #180 12/26/23 04/20/24 Rx tabs albuterol sulfate 90 mcg/actuation 2 inh inhalation Q4H PRN shortness 01/01/24 Unknown Rx aerosol inhaler (Ventolin HFA) of breath or wheezing #18 grams isosorbide mononitrate 30 mg 30 mg PO DAILY htn/chf #90 tabs 01/22/24 04/20/24 Rx tablet,extended release 24 hr insulin lispro 100 unit/mL 15 unit (0.15 mL) subcut TIDAC dm2 01/29/24 04/20/24 Rx subcutaneous pen (Humalog KwikPen #15 mL (U-100) Insulin) ferrous sulfate 325 mg (65 mg 325 mg PO Q OTHER DAY anemia #45 02/10/24 04/20/24 Rx iron) tablet tabs apixaban 2.5 mg tablet (Eliquis) 2.5 mg PO BID atrial fibrillation 03/13/24 04/20/24 Rx #90 tabs ropinirole 1 mg tablet 1 mg PO QHS restless leg #90 tabs 03/23/24 04/19/24 Rx budesonide-formoterol HFA 160 2 puff inhalation BID copd #3 ea 03/26/24 04/20/24 Rx mcg-4.5 mcg/actuation aerosol inhaler (Symbicort) sennosides 8.6 mg-docusate sodium 2 tab PO BID PRN constipation 1 03/30/24 Unknown Rx 50 mg tablet (Stool month #60 tabs Softener-Stimulant Laxative) pen needle, diabetic 31 gauge x #100 ea 03/31/24 Unknown Rx / (1st Tier Unifine Pentips) loratadine 10 mg tablet 10 mg PO DAILY allergys #90 tabs 04/05/24 04/20/24 Rx blood sugar diagnostic (OneTouch #180 ea 04/07/24 Unknown Rx Ultra Test strips) linezolid 600 mg tablet 600 mg PO Q12H uti 10 days #20 tabs 04/13/24 04/20/24 Rx insulin glargine-yfgn 100 unit/mL 22 unit (0.22 mL) subcut DAILY dm2 04/16/24 04/19/24 Rx (3 mL) subcutaneous pen #15 mL furosemide 40 mg tablet 80 mg PO BID chf 04/20/24 04/20/24 History ipratropium 0.5 mg-albuterol 3 mg 3 ml inhalation .COMPLEX SOB &/OR 04/20/24 Unknown History (2.5 mg base)/3 mL nebulization WHEEZING soln Allergy/AdvReac Type Severity Reaction Status Date / Time cilostazol (From Pletal) Allergy Unknown Verified 04/20/24 13:03 felodipine Allergy Hives Verified 04/20/24 13:03 levofloxacin Allergy Hives Verified 04/20/24 13:03 Sulfa (Sulfonamide Allergy Unknown Verified 04/20/24 13:03 Antibiotics) Family History Father Diabetes Cancer Prostate cancer Mother Dementia Brother Parkinsons Brother Cancer Surgical History H/O vascular surgery History of surgical procedure History of transurethral resection of prostate History of endarterectomy (07/2018) History of left heart catheterization (03/2014) History of coronary artery stent placement (02/17/08) History of vascular surgery (08/2018) History of hernia repair H/O aortic aneurysm repair (11/1998) Social History household members: spouse 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 status: 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 Smoking Status: Former smoker quit date: 08/07/08 pack-years: 2 Tobacco: How many years used: 52 Electronic Cigarette Use: not used how long ago did patient quit smokin years ago alcohol intake: current alcohol intake frequency: holidays/special occasions only details: hx of alcohol abuse substance use type: does not use caffeine: No what type of physical activity do you participate in: other details: Nustep frequency: 5-6 times per week duration: 15-30 minutes/day seatbelt use: always do you feel safe at home: Yes ROS Constitutional Constitutional: Reports fatigue and weakness; Denies anorexia, change in weight, chills, fever(s), malaise, night sweats or other Eyes Eyes: Denies blurry vision, change in eye color, change in vision, discharge from eye(s), double vision, erythema, eye pain, loss of vision or other ENT HEENT: Denies abnormal hearing, dysphagia, ear pain, epistaxis, headache(s), hearing loss, nasal congestion, nasal discharge, post nasal drip, sinus pressure, sore throat or other Cardiovascular Cardiovascular: Reports lightheadedness; Denies chest pain, claudication, dyspnea on exertion, edema, orthopnea, palpitations, paroxysmal nocturnal dyspnea, rapid heart rate, syncope or other Respiratory/Chest Respiratory/Chest: Denies cough, dyspnea, excessive phlegm production, hemoptysis, productive cough, shortness of breath at rest, shortness of breath with exertion, wheezing or other Gastrointestinal Gastrointestinal: Denies abdominal pain, coffee ground emesis, constipation, diarrhea, dyspepsia, hematemesis, hematochezia, loose stools, melena, nausea, vomiting or other Genitourinary Genitourinary: Reports burning urination, difficulty urinating, dysuria, urinary frequency, urinary hesitancy and other Details: Retention ; Denies hematuria, nocturia, urinary incontinence or urinary urgency Musculoskeletal Musculoskeletal: Reports joint pain and joint stiffness; Denies arthralgias, back pain, joint swelling, myalgias, neck pain or other Neurologic Neurologic: Denies abnormal gait, abnormal speech, confusion, disequilibrium, dizziness, focal weakness, headache(s), numbness, paresthesias, seizure-like activity, seizures, syncope, tingling, tremor(s) or other Psychiatric Psychiatric: Denies anxiety, depression, homicidal ideation, suicidal ideation or other Endocrine Endocrinology: Denies change in body appearance, cold intolerance, excessive sweating, heat intolerance, polydipsia, polyuria or other Hematologic/Lymphatic Hematologic/Lymphatic: Denies anemia, easy bleeding, easy bruising, lymphadenopathy or other Allergic/Immunologic Allergic/Immunologic: Denies rhinitis, hives, eczemia, asthma or other Vital Signs Vital Signs Vital Signs: 04/20/24 13:03 04/20/24 13:13 04/20/24 13:53 Temperature 96 F L 97.6 F L Temperature Source Temporal Oral Pulse Rate 65 Pulse Rate [Lying] Pulse Rate [Sitting (for 1 minute prior to obtaining)] Pulse Rate [Standing (for 1 minute prior to obtaining)] Respiratory Rate 18 Blood Pressure 123/50 H Blood Pressure [Lying] Blood Pressure [Sitting (for 1 minute prior to obtaining)] Blood Pressure [Standing (for 1 minute prior to obtaining)] Blood Pressure Mean 74 Blood Pressure Mean [Lying] Blood Pressure Mean [Sitting (for 1 minute prior to obtaining)] Blood Pressure Mean [Standing (for 1 minute prior to obtaining)] Pulse Ox 97 97 Oxygen Delivery Method Room Air Room Air 04/20/24 15:02 04/20/24 17:00 04/20/24 17:09 Temperature Temperature Source Pulse Rate 59 L 58 L Pulse Rate [Lying] 54 L Pulse Rate [Sitting (for 1 minute prior to obtaining)] 55 L Pulse Rate [Standing (for 1 minute prior to obtaining)] 57 L Respiratory Rate 22 H 24 H Blood Pressure 158/75 H 166/74 H Blood Pressure [Lying] 166/74 H Blood Pressure [Sitting (for 1 minute prior to obtaining)] 165/69 H Blood Pressure [Standing (for 1 minute prior to obtaining)] 155/72 H Blood Pressure Mean 102 104 Blood Pressure Mean [Lying] 104 Blood Pressure Mean [Sitting (for 1 minute prior to obtaining)] 101 Blood Pressure Mean [Standing (for 1 minute prior to obtaining)] 99 Pulse Ox 97 97 Oxygen Delivery Method Room Air Room Air Weight Weight: 94.7 kg Body Mass Index (BMI) 31.7 Physical Exam Const alert, oriented x3, no apparent distress and well nourished; Negative for average body habitus Constitutional Narrative: Elderly, white male, sitting up in bed, appears comfortable, nontoxic, at bedside, nursing at bedside, interacts appropriately General Appearance: cooperative HEENT normocephalic, head/scalp atraumatic and moist oral mucous membranes HEENT Narrative: Moderate hearing loss, Mallampati 3, no thrush Eyes PERRL, EOMs intact bilaterally and conjunctivae normal Eyes Narrative: No scleral icterus Neck no lymphadenopathy and supple Neck Narrative: Trachea midline, no thyroid enlargement Resp normal respiratory effort, no retractions, no use of accessory muscles and clear to auscultation bilaterally Auscultation: Negative for rales, rhonchi or wheezes Cardio regular rate, regular rhythm, S1 normal heart sound, S2 normal heart sound, no rub, no gallops and no clicks Cardio Narrative: 2 out of 6 systolic murmur loudest at right upper sternal border GI normal to inspection, nondistended, normoactive bowel sounds, soft to palpation and non-tender Extremity Extremity Narrative: 1+ bilateral lower extremity pitting edema with compression hose in place, no cyanosis or clubbing noted in hands Neuro oriented x3, moves all extremities and no focal motor deficits Speech: speech normal Psych affect normal Psych Narrative: Very pleasant, interacts appropriately, no signs of distress Results Lab / Micro Data 04/20/24 14:04 04/20/24 14:04 Labs: Laboratory Results - last 24 hr 04/20/24 14:04: WBC 5.9, RBC 3.68 L, Hgb 11.4 L, Hct 34.1 L, MCV 92.7, MCH 31.0, MCHC 33.4, RDW Std Deviation 58.2 H, RDW Coeff of Justin 19.8 H, Plt Count 246, MPV 9.7, Immature Gran % (Auto) 0.300, Neut % (Auto) 64.8, Lymph % (Auto) 19.0, [place] % (Auto) 12.9 H, Eos % (Auto) 2.2, Baso % (Auto) 0.8, Absolute Neuts (auto) 3.8, Absolute Lymphs (auto) 1.12, Nucleated RBC % 0, PT 19.2 H, INR 1.6, APTT 38.5 H, Sodium 133 L, Potassium 4.2, Chloride 98, Carbon Dioxide 26.0, Anion Gap 9, BUN 50 H, Creatinine 2.43 H, Est GFR (MDRD) Af Amer 33 L, Est GFR (MDRD) Non-Af 27 L, BUN/Creatinine Ratio 20.6 H, Glucose 196 H, Calcium 9.2, Troponin I High Sens 22, B-Natriuretic Peptide 503.1 H 04/20/24 15:33: POC Glucose 153 H 04/20/24 16:11: Lactic Acid 1.4 04/20/24 16:30: Urine Color Yellow, Urine Clarity Sl. Cloudy, Urine pH 6.0, Ur Specific [place] 1.010, Urine Protein 30 H, Urine Glucose (UA) Normal, Urine Ketones Negative, Urine Occult Blood 10 H, Urine Nitrite Negative, Urine Bilirubin Negative, Urine Urobilinogen Normal, Ur Leukocyte Esterase 500 H, Urine RBC 0-5 SEEN, Urine WBC 50-100 SEEN, Ur Squamous Epith Cells 0 SEEN, Urine Bacteria 3+, Urine Mucus 0 SEEN Rhythm Strip Rhythm Strip: A-fib Rate: 56 Ectopy: None Imaging Radiology Impression Chest X-Ray 04/20/24 15:25 IMPRESSION: Findings suggestive of scarring. No acute abnormality is seen. Electronically Signed: Yemi Clifton MD at 15:37 EDT , Assessment & Plan Assessment/Plan (1) Urinary tract infection: QUALIFIERS: Hematuria presence: without hematuria Urinary tract infection type: site unspecified Qualified Code(s): N39.0 - Urinary tract infection, site not specified (2) Hyponatremia: (3) Lightheadedness: PLAN: Plan Urinary tract infection secondary to resistant Enterococcus faecalis -Had been on linezolid but still symptomatic -UA is suggestive still of infection -Urine cultures pending -Will place on vancomycin given previous culture -Check retroperitoneal ultrasound -Consult ID -May need urology involvement depending on ultrasound -Patient does have a history of urinary retention and self caths intermittently at home -Has seen Dr. Matos in the past Lightheadedness -Patient did have some hypotension at the time -Has been normotensive with negative orthostatics since admission -Gentle hydration with 1 L then stop -May be related to persistent infection -Will hold home Coreg but continue home hydralazine and isosorbide mononitrate Bradycardia -Patient had some intermittent heart rates in the 30s while he was awake -Hold home Coreg -Monitor on telemetry -Patient has history of atrial fibrillation I am concerned that maybe he has some sick sinus syndrome so may need further monitoring after discharge with event monitor/Holter Hyponatremia -Mild -Appears to be related to mild dehydration -Will hold home diuretics for now -Gentle hydration with lactated Ringer's at 75 cc/h for 1 bag -Recheck in a.m. Elevated serum creatinine on CKD stage IV -baseline serum creatinine runs between 2.1 and 2.3 -Serum creatinine on presentation was 2.43 -Will hold Lasix for now and consider restarting tomorrow -Gentle hydration DM-2 -Continue home insulin -SSI -Accu-Cheks as ordered -Cardiac/carb controlled diet Asthma/COPD overlap syndrome -Continue home medications/inhalers Obstructive sleep apnea -Wears BiPAP at 21/08 -Family to bring in home unit Restless leg syndrome -Continue home ropinirole Chronic HFpEF/essential hypertension/hyperlipidemia/CAD -Has been stable with most recent echo from 2022 showing an EF of 65% -BNP is elevated however patient shows no clinical signs of heart failure -Hold Lasix for tonight as patient appears to be a little bit dry and was having lightheadedness -Anticipate reinitiation of Lasix tomorrow -Hold Coreg secondary to bradycardia on presentation -Continue hydralazine and isosorbide mononitrate Atrial fibrillation -Hold home beta-wagner due to bradycardia -Continue home apixaban AAA -History of repair in 1998 GERD -Continue home Protonix DVT prophylaxis -Continue home apixaban CODE STATUS -DNR CCA with no intubation per discussion at admission Charges/Coding Visit Charges Inpatient E&M: 38010 Init Hosp L3
--- NOTE | 2024-04-20 20:27 | PCM.RX.CS ---
Consult Antibiotic Management Pharmacy has been consulted to manage selected antibiotic: Vancomycin Type of Intervention Type of Consult: New start Suspected Infection Suspected Infection: Other (UTI) Prior Doses of Antibiotics Prior Doses of Antibiotics Received/Current Regimen: Vancomycin 1500 mg IV x 1 given 04/1524 @ 1820, patient was previously on zyvox at home. Labs Labs: Sodium 133 mmol/L (136-145) L 04/20/24 14:04 Potassium 4.2 mmol/L (3.5-5.1) 04/20/24 14:04 Chloride 98 mmol/L (98-107) 04/20/24 14:04 Carbon Dioxide 26.0 mmol/L (21.0-32.0) 04/20/24 14:04 Anion Gap 9 (5-15) 04/20/24 14:04 BUN 50 mg/dL (7-18) H 04/20/24 14:04 Creatinine 2.43 mg/dL (0.70-1.30) H 04/20/24 14:04 Est GFR (MDRD) Af Amer 33 mL/min (>60) L 04/20/24 14:04 Est GFR (MDRD) Non-Af 27 mL/min (>60) L 04/20/24 14:04 BUN/Creatinine Ratio 20.6 RATIO (10-20) H 04/20/24 14:04 Glucose 196 mg/dL (74-106) H 04/20/24 14:04 Dosing Weight Weight used for dosin kg Estimated Creatinine Clearance Estimated Creatinine Clearance: ~24 Goal Trough Goal Trough: 15-20 mcg/mL Pharmacy Plan for Drug Dosing Pharmacy Plan for Drug Dosing: Vancomycin 1500 mg IV x 1, followed by 750 mg Q12H. Pharmacy Service will continue to monitor and adjust dosing as required. Follow-Up Labs Follow-Up Labs: Trough: Vancomycin Date/Time Labs Ordered Labs to be done on [date and time ordered]: 04/22/24 @ 5383
[2024-04-20] MEDS: Lactated Ringers 1,000 ML 75 ML IV (21:25)
[2024-04-20] MEDS: Ipratropium/Albuterol Sulfate 3 ML AMPUL.NEB INHALATION (21:29)
[2024-04-20] MEDS: Budesonide Respules 0.5 MG/2 ML AMPUL.NEB. INHALATION (21:29)
--- NOTE | 2024-04-20 21:55 | US_ITS ---
STUDY: RENAL ULTRASOUND - COMPLETE REASON FOR EXAM: Male, 88 years old. UTI TECHNIQUE: Ultrasound evaluation of the kidneys was performed with real-time and static swan-scale imaging. COMPARISON: Comparison made with prior study August 02, 2023. FINDINGS: RIGHT KIDNEY: Normal location of the right kidney, which is normal in size. The right kidney measures 11.7 cm x 4.6 cm x 5.1 cm. There is a normal cortex of the right kidney. The renal cortex measures 1.4 cm. Multiple small cysts are seen. The largest measures 4.5 cm x 4 cm x 4 cm. There are no right renal calculi. There is no right hydronephrosis. DISTAL RIGHT URETER: There is non-visualization of the distal right ureter. There is no demonstrated right ureterovesical junction calculus. There is no demonstrated right ureteral jet. LEFT KIDNEY: Normal location of the left kidney, which is normal in size. The left kidney measures 10.5 cm x 4.8 cm x 5.6 cm. There is a normal cortex of the left kidney. The renal cortex measures 1.5 cm. Multiple cysts are seen. The largest measures 2.9 cm x 2.47 x 2.6 cm. There are no left renal calculi. There is no left hydronephrosis. DISTAL LEFT URETER: There is non-visualization of the distal left ureter. There is no demonstrated left ureterovesical junction calculus. There is no demonstrated left ureteral jet. BLADDER: The bladder is empty. A Edwards catheter seen within it. US/Kidney and Bladder IMPRESSION: Multiple bilateral renal cysts. The bladder is empty. A Edwards catheter is seen within it. Electronically Signed: Yemi Clifton MD at 10:25 EDT ,
[2024-04-20] MEDS: APIXABAN 2.5 MG TABLET (WCH) PO (22:38)
[2024-04-20] MEDS: hydrALAZINE 50 MG Tablet 100 MG PO (22:38)
[2024-04-20] MEDS: Pramipexole Di-HCl 0.5 MG Tablet PO (22:38)
[2024-04-20] MEDS: Montelukast 10 MG Tablet PO (22:39)
[2024-04-20 22:59] LABS: Bedside Glucose 145 mg/dL (74-106)
[2024-04-21] VITALS (10 sets, daily range): BP systolic 134–162; BP diastolic 58–84; PULSE 64–84; RESP 16–20; TEMP 36.6–36.9; O2SAT 94–97
[2024-04-21] MEDS: guaiFENesin Dm 10 ML UDC 5 ML PO (04:35)
[2024-04-21 06:09] LABS: Absolute Lymphocyte Count 1.21 X10^3/uL (0.83-4.51); Absolute Neutrophil Count 5.4 X10^3/uL (2.0-7.7); Basophil# 0.03 X10^3/uL; Basophil% 0.4 % (0-1); Eosinophils% 1.4 % (0-5); Hematocrit 31.2 % (40-54); Lymphocyte # 1.21 X10^3/ul (0.83-4.51); Lymphocyte % 16.4 % (19-41); Mean Corp Hgb Conc 35.3 g/dL (32-36); Mean Corpuscular Hgb 32.6 pg (27.0-32.0); Mean Corpuscular Volume 92.6 fL (80-94); Monocyte# 0.63 X10^3/uL; Monocyte% 8.6 % (0-10); NRBC Flagged by Analyzer 0 % (0-5); Neutrophil # 5.37 X10^3/uL (2.7-7.7); Neutrophil % 72.9 % (47-70); Platelet Count 242 K/mm3 (150-450); RBC Distribution Width CV 19.6 % (11.6-14.6); RBC Distribution Width SD 57.4 fl (35.1-43.9); Red Blood Count 3.37 M/mm3 (4.6-6.2); White Blood Count 7.4 K/mm3 (4.4-11.0)
[2024-04-21 06:41] LABS: AST(SGOT) 27 U/L (15-37); Alanine Aminotransfer ALT/SGPT 28 U/L (16-61); Albumin, Serum 3.5 g/dL (3.2-5.0); Alkaline Phosphatase 65 U/L (45-117); Anion Gap 8 (5-15); BUN 45 mg/dL (7-18); BUN/Creat Ratio 21.7 RATIO (10-20); Calcium,Total 9.1 mg/dL (8.5-10.1); Chloride 103 mmol/L (98-107); Creatinine, Serum 2.07 mg/dL (0.70-1.30); EST Glomerular Filtration Rate 33 mL/min (>60); Est Glom Filt Rate - Afr Amer 39 mL/min (>60); Estimated Creatinine Clearance 28.09 ml/min; Globulin 3.6 g/dL (2.2-4.2); Glucose 128 mg/dL (74-106); Magnesium 2.2 mg/dL (1.6-2.6); Potassium 3.7 mmol/L (3.5-5.1); Protein, Total 7.1 g/dL (6.4-8.2); Sodium Level 136 mmol/L (136-145)
[2024-04-21] MEDS: Budesonide Respules 0.5 MG/2 ML AMPUL.NEB. INHALATION ×2 (07:27→21:06)
[2024-04-21] MEDS: Ipratropium/Albuterol Sulfate 3 ML AMPUL.NEB INHALATION ×4 (07:28→21:06)
[2024-04-21] MEDS: Atorvastatin Calcium 40 MG Tablet PO (08:17)
[2024-04-21] MEDS: hydrALAZINE 50 MG Tablet 100 MG PO ×2 (08:17→21:46)
[2024-04-21] MEDS: Loratadine 10 MG Tablet PO (08:17)
[2024-04-21] MEDS: APIXABAN 2.5 MG TABLET (WCH) PO ×2 (08:17→21:45)
[2024-04-21] MEDS: Insulin Glargine-YFGN 100 UNIT/ML Pen 22 UNIT SC (08:18)
[2024-04-21] MEDS: Pantoprazole Sodium 40 MG Tablet PO (08:18)
[2024-04-21] MEDS: Isosorbide Mononitrate 30 MG Tablet PO (08:21)
[2024-04-21 08:36] LABS: Bedside Glucose 125 mg/dL (74-106)
[2024-04-21] MEDS: 0.9% Saline Lock 10 ML Syringe IV (09:21)
[2024-04-21] MEDS: guaiFENesin Dm 10 ML UDC PO ×2 (09:21→21:43)
--- NOTE | 2024-04-21 10:25 | CASEMGMT ---
COLLEEN BECERRA Assessment: Face to Face with pt for initial transition planning/care coordination assessment. RN MARIAM introduced self and role at [facility], pt voices understanding and consents to assessment. Pt is A&O x4 and answers all questions appropriately at this time. Pt sitting up in chair in no distress. Care providers, pharmacy, and demographics verified/updated. Admitting Dx: UTI/Dehydration PCP: J Carlos Specialists: Ignacio, Nuclear Physician; Inocencio, Hosiery Looper; Renard, Urologist; Andrae, Public Safety Director Preferred Pharmacy: [facility] Insurance: [employer] [facility] Prescription Benefit: yes LNOK: , Son Living Arrangements: Pt lives with in a 2 story home with 3 steps to enter. Pt bedroom and bathroom are on the main level. ADLs: Pt states assists with ADLs when needed. Transportation: Pt provides transportation. DME: BiPAP, Glucometer and supplies, cane, walker, rollator, scooter, shower bench. HHC/SNF: Denies Hx of. Pt states no concerns with going home at time of dc. Pt states no further concerns/needs. CM to follow. Advised pt to ask CM if any further question/concerns/needs arise, voices understanding. Pt Goal: Home Plan: Home, will follow therapy for recommendations. CM to follow plan of care. Tejinder MACIAS CM
--- NOTE | 2024-04-21 10:45 | PCM.CONS.GEN ---
Assessment & Plan Assessment/Plan (1) Urinary tract infection: QUALIFIERS: Urinary tract infection type: site unspecified Hematuria presence: without hematuria Qualified Code(s): N39.0 - Urinary tract infection, site not specified PLAN: Repeat ucx pending. Ucx 04/07 with e. faecium. Was on linezolid appropriately as an outpt. Concern he wasn't improving due to worsening urine retention. Now childers in place, no fever, normal wbc. On iv vanc. Follows with Dr. Matos. If repeat ucx does not show new bacteria, plan for discharge would be po fosfomycin 3gm x2 doses given 3 days apart with close urology followup. Will follow, thank you (2) Urinary retention: HPI Consult Data Date of Consult: 04/21/24 HPI Narrative Reason for Consultation: uti HPI Narrative: DESIREE ROSAS, is a 88 M with DM, COPD, urinary retention, presented with several weeks of dysuria, hypotension. Had been on macrobid from PCP starting 04/07, then changed to linezolid 04/13 after ucx showed E faecium. Had minimal improvement in dysuria. He does straight cath at home once daily. Does not re-use catheters. No fever, no abd pain, no flank pain. Some straining. Admitted on iv vanc, feeling about the same. Full ROS performed and neg except as noted above. [facility] Medical History Chronic kidney disease Frequent hospital admissions Fatigue Colonic mass Pleural effusion (HFpEF) heart failure with preserved ejection fraction Pneumonia Colon polyp Lightheadedness Chronic constipation Anemia Constipation Obstructive sleep apnea Coronary artery disease Gastroesophageal reflux disease Allergic rhinitis Hyperlipidemia Urinary retention Debility Wears hearing aid Wears dentures Wears glasses Cancer History of steroid therapy Ambulates with cane Walker as ambulation aid Arthritis Kidney stone History of renal disease Easy bruising Back pain Injury of back History of hiatal hernia Former smoker BiPAP (biphasic positive airway pressure) dependence Sleep apnea Asthma Shortness of breath on exertion Hoarseness Chronic cough Leg cramps History of pain when walking History of edema History of stress test History of heart attack History of irregular heartbeat Acute cystitis with hematuria Recurrent urinary tract infection ALMEIDA (dyspnea on exertion) Chest pain Right leg swelling Patellar bursitis of right knee Asthma-COPD overlap syndrome Abdominal aortic aneurysm (AAA) Peripheral vascular disease of extremity with claudication Rectus sheath hematoma Pre-syncope Essential (primary) hypertension Restless legs syndrome MARIXA (obstructive sleep apnea) Daytime hypersomnia Somatic dysfunction of pelvic region DDD (degenerative disc disease), lumbar Overweight Seasonal allergies Carotid bruit Atherosclerotic heart disease of [place] coronary artery without angina pectoris PVD (peripheral vascular disease) Dyslipidemia DM2 (diabetes mellitus, type 2) COPD (chronic obstructive pulmonary disease) Home Medications ?Medication ?Instructions ?Recorded ?Last Taken ?Type ammonium lactate 12 % lotion 1 applic topical QD-BID PRN dry 02/06/18 Unknown History skin handicap placcard #1 ea 09/28/19 Unknown Rx ascorbate calcium (vitamin C) 500 500 mg PO DAILY Bone strength 05/03/20 04/20/24 History mg tablet coenzyme Q10 100 mg capsule (Co 100 mg PO DAILY supplement 05/03/20 04/20/24 History Q-10) cholecalciferol (vitamin D3) 100 100 mcg PO DAILY supplement 11/03/20 04/20/24 History mcg (4,000 unit) tablet spacer #1 ea 01/12/21 Unknown Rx nitroglycerin 0.4 mg sublingual 0.4 mg sublingual Q5-15M PRN chest 06/08/22 Unknown Rx tablet (Nitrostat) pain #25 tabs montelukast 10 mg tablet 10 mg PO QHS Respiratory #90 tabs 04/24/23 04/19/24 Rx atorvastatin 40 mg tablet 40 mg PO QODAY cholesterol #45 tabs 05/23/23 04/17/24 Rx carvedilol 25 mg tablet 25 mg PO BID a.fib/chf/htn #180 05/23/23 04/20/24 Rx tabs lancets #180 ea 07/18/23 Unknown Rx ipratropium bromide 42 mcg (0.06 2 spray intranasal TID-QID PRN 10/23/23 Unknown Rx %) nasal spray allergy symptoms #15 mL pantoprazole 40 mg tablet,delayed 40 mg PO DAILY reflux #90 tabs 11/19/23 04/20/24 Rx release ipratropium bromide 0.02 % 2.5 ml inhalation Q6H PRN 12/06/23 Unknown Rx solution for inhalation shortness of breath or wheezing #150 mL hydralazine 100 mg tablet 100 mg PO BID hypertension #180 12/26/23 04/20/24 Rx tabs albuterol sulfate 90 mcg/actuation 2 inh inhalation Q4H PRN shortness 01/01/24 Unknown Rx aerosol inhaler (Ventolin HFA) of breath or wheezing #18 grams isosorbide mononitrate 30 mg 30 mg PO DAILY htn/chf #90 tabs 01/22/24 04/20/24 Rx tablet,extended release 24 hr insulin lispro 100 unit/mL 15 unit (0.15 mL) subcut TIDAC dm2 01/29/24 04/20/24 Rx subcutaneous pen (Humalog KwikPen #15 mL (U-100) Insulin) ferrous sulfate 325 mg (65 mg 325 mg PO Q OTHER DAY anemia #45 02/10/24 04/20/24 Rx iron) tablet tabs apixaban 2.5 mg tablet (Eliquis) 2.5 mg PO BID atrial fibrillation 03/13/24 04/20/24 Rx #90 tabs ropinirole 1 mg tablet 1 mg PO QHS restless leg #90 tabs 03/23/24 04/19/24 Rx budesonide-formoterol HFA 160 2 puff inhalation BID copd #3 ea 03/26/24 04/20/24 Rx mcg-4.5 mcg/actuation aerosol inhaler (Symbicort) sennosides 8.6 mg-docusate sodium 2 tab PO BID PRN constipation 1 03/30/24 Unknown Rx 50 mg tablet (Stool month #60 tabs Softener-Stimulant Laxative) pen needle, diabetic 31 gauge x #100 ea 03/31/24 Unknown Rx 1/4 (1st Tier Unifine Pentips) loratadine 10 mg tablet 10 mg PO DAILY allergys #90 tabs 04/05/24 04/20/24 Rx blood sugar diagnostic (OneTouch #180 ea 04/07/24 Unknown Rx Ultra Test strips) linezolid 600 mg tablet 600 mg PO Q12H uti 10 days #20 tabs 04/13/24 04/20/24 Rx insulin glargine-yfgn 100 unit/mL 22 unit (0.22 mL) subcut DAILY dm2 04/16/24 04/19/24 Rx (3 mL) subcutaneous pen #15 mL furosemide 40 mg tablet 80 mg PO BID chf 04/20/24 04/20/24 History ipratropium 0.5 mg-albuterol 3 mg 3 ml inhalation .COMPLEX SOB &/OR 04/20/24 Unknown History (2.5 mg base)/3 mL nebulization WHEEZING soln Allergy/AdvReac Type Severity Reaction Status Date / Time cilostazol (From Pletal) Allergy Unknown Verified 04/20/24 13:03 felodipine Allergy Hives Verified 04/20/24 13:03 levofloxacin Allergy Hives Verified 04/20/24 13:03 Sulfa (Sulfonamide Allergy Unknown Verified 04/20/24 13:03 Antibiotics) Family History Father Diabetes Cancer Prostate cancer Mother Dementia Brother Parkinsons Brother Cancer Surgical History H/O vascular surgery History of surgical procedure History of transurethral resection of prostate History of endarterectomy (07/2018) History of left heart catheterization (03/2014) History of coronary artery stent placement (02/17/08) History of vascular surgery (08/2018) History of hernia repair H/O aortic aneurysm repair (11/1998) Social History household members: spouse 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 status: retired current occupation: [employer] department Smoking Status: Former smoker quit date: 08/07/08 pack-years: 2 Tobacco: How many years used: 52 Electronic Cigarette Use: not used how long ago did patient quit smokin years ago alcohol intake: current alcohol intake frequency: holidays/special occasions only details: hx of alcohol abuse substance use type: does not use caffeine: No what type of physical activity do you participate in: other details: Nustep frequency: 5-6 times per week duration: 15-30 minutes/day seatbelt use: always do you feel safe at home: Yes Physical Exam Const alert and no apparent distress General Appearance: cooperative HEENT normocephalic and head/scalp atraumatic Eyes PERRL and EOMs intact bilaterally Neck supple and No nodes Resp normal air movement and clear to auscultation bilaterally Cardio regular rate and regular rhythm GI soft to palpation, non-tender and non-distended Extremity General Extremity: Negative for edema Skin no rashes or lesions noted Neuro CN's II-XII intact bilaterally Lab / Micro Data Attestation: I reviewed the patient's lab results. 04/21/24 05:13 04/21/24 05:13 Labs: Laboratory Results - last 24 hr 04/20/24 14:04: WBC 5.9, RBC 3.68 L, Hgb 11.4 L, Hct 34.1 L, MCV 92.7, MCH 31.0, MCHC 33.4, RDW Std Deviation 58.2 H, RDW Coeff of Justin 19.8 H, Plt Count 246, MPV 9.7, Immature Gran % (Auto) 0.300, Neut % (Auto) 64.8, Lymph % (Auto) 19.0, Walsh % (Auto) 12.9 H, Eos % (Auto) 2.2, Baso % (Auto) 0.8, Absolute Neuts (auto) 3.8, Absolute Lymphs (auto) 1.12, Nucleated RBC % 0, PT 19.2 H, INR 1.6, APTT 38.5 H, Sodium 133 L, Potassium 4.2, Chloride 98, Carbon Dioxide 26.0, Anion Gap 9, BUN 50 H, Creatinine 2.43 H, Est GFR (MDRD) Af Amer 33 L, Est GFR (MDRD) Non-Af 27 L, BUN/Creatinine Ratio 20.6 H, Glucose 196 H, Calcium 9.2, Troponin I High Sens 22, B-Natriuretic Peptide 503.1 H 04/20/24 15:33: POC Glucose 153 H 04/20/24 16:11: Lactic Acid 1.4 04/20/24 16:30: Urine Color Yellow, Urine Clarity Sl. Cloudy, Urine pH 6.0, Ur Specific [place] 1.010, Urine Protein 30 H, Urine Glucose (UA) Normal, Urine Ketones Negative, Urine Occult Blood 10 H, Urine Nitrite Negative, Urine Bilirubin Negative, Urine Urobilinogen Normal, Ur Leukocyte Esterase 500 H, Urine RBC 0-5 SEEN, Urine WBC 50-100 SEEN, Ur Squamous Epith Cells 0 SEEN, Urine Bacteria 3+, Urine Mucus 0 SEEN 04/20/24 22:34: POC Glucose 145 H 04/21/24 05:13: WBC 7.4, RBC 3.37 L, Hgb 11.0 L, Hct 31.2 L, MCV 92.6, MCH 32.6 H, MCHC 35.3 D, RDW Std Deviation 57.4 H, RDW Coeff of Justin 19.6 H, Plt Count 242, MPV 10.0, Immature Gran % (Auto) 0.300, Neut % (Auto) 72.9 H, Lymph % (Auto) 16.4 L, Walsh % (Auto) 8.6, Eos % (Auto) 1.4, Baso % (Auto) 0.4, Absolute Neuts (auto) 5.4, Absolute Lymphs (auto) 1.21, Nucleated RBC % 0, Sodium 136, Potassium 3.7, Chloride 103, Carbon Dioxide 25.0, Anion Gap 8, BUN 45 H, Creatinine 2.07 H, Estim Creat Clear Calc 28.09, Est GFR (MDRD) Af Amer 39 L, Est GFR (MDRD) Non-Af 33 L, BUN/Creatinine Ratio 21.7 H, Glucose 128 H, Calcium 9.1, Phosphorus 3.0, Magnesium 2.2, Total Bilirubin 0.70, AST 27, ALT 28, Alkaline Phosphatase 65, Total Protein 7.1, Albumin 3.5, Globulin 3.6, Albumin/Globulin Ratio 1.0 04/21/24 08:11: POC Glucose 125 H Rhythm Strip Rhythm Strip: A-fib Rate: 56 Ectopy: None Imaging Radiology Impression Chest X-Ray 04/20/24 15:25 IMPRESSION: Findings suggestive of scarring. No acute abnormality is seen. Electronically Signed: Yemi Clifton MD at 15:37 EDT , Renal Ultrasound 04/20/24 21:55 IMPRESSION: Multiple bilateral renal cysts. The bladder is empty. A Childers catheter is seen within it. Electronically Signed: Yemi Clifton MD at 10:25 EDT ,
[2024-04-21 10:57] LABS: Bedside Glucose 206 mg/dL (74-106)
[2024-04-21] MEDS: Insulin Lispro 100 UNIT/ML INSULN.PEN 15 UNIT SC (12:16)
[2024-04-21] MEDS: Insulin Lispro 100 UNIT/ML INSULN.PEN SC ×2 (12:16→21:45)
--- NOTE | 2024-04-21 17:10 | NURSING ---
This RN took over pt at 1710.
[2024-04-21 17:20] LABS: Bedside Glucose 59 mg/dL (74-106)
--- NOTE | 2024-04-21 17:54 | PCM.PN.HOSP ---
Reason for Visit Reason for Visit: Diagnoses Hypo-osmolality and hyponatremia (04/20/24) Urinary tract infection, site not specified (04/20/24) Retention of urine, unspecified (04/20/24) Dizziness and giddiness (04/20/24) Subjective Subjective Patient was seen and examined today, he does not appear to be in any distress and he is alert and appropriate. Patient's urine culture is pending, talked briefly with infectious diseases about his care and his antibiotic coverage will be based on the culture results. I stopped the patient's IV fluids today, I do not feel he needs any additional fluids Objective Data Objective Data Vital Signs: Vital Signs Temp Pulse Resp BP Pulse Ox O2 Del Method 98.3 F 67 18 142/84 H 97 Room Air 04/21/24 16:00 04/21/24 16:00 04/21/24 16:00 04/21/24 16:00 04/21/24 16:00 04/21/24 16:00 Oxygen Delivery Method Room Air Weight: 91.2 kg Body Mass Index (BMI) 30.5 Intake & Output: Intake and Output for Last 24 Hours 04/19/24 04/20/24 04/21/24 23:59 23:59 23:59 Intake Total 1030 / 1030 1480 / 1480 Output Total 400 / 400 950 / 950 Balance 630 / 630 530 / 530 Lab / Micro Data 04/21/24 05:13 04/21/24 05:13 Labs: Laboratory Results - last 24 hr 04/20/24 22:34: POC Glucose 145 H 04/21/24 05:13: WBC 7.4, RBC 3.37 L, Hgb 11.0 L, Hct 31.2 L, MCV 92.6, MCH 32.6 H, MCHC 35.3 D, RDW Std Deviation 57.4 H, RDW Coeff of Justin 19.6 H, Plt Count 242, MPV 10.0, Immature Gran % (Auto) 0.300, Neut % (Auto) 72.9 H, Lymph % (Auto) 16.4 L, [place] % (Auto) 8.6, Eos % (Auto) 1.4, Baso % (Auto) 0.4, Absolute Neuts (auto) 5.4, Absolute Lymphs (auto) 1.21, Nucleated RBC % 0, Sodium 136, Potassium 3.7, Chloride 103, Carbon Dioxide 25.0, Anion Gap 8, BUN 45 H, Creatinine 2.07 H, Estim Creat Clear Calc 28.09, Est GFR (MDRD) Af Amer 39 L, Est GFR (MDRD) Non-Af 33 L, BUN/Creatinine Ratio 21.7 H, Glucose 128 H, Calcium 9.1, Phosphorus 3.0, Magnesium 2.2, Total Bilirubin 0.70, AST 27, ALT 28, Alkaline Phosphatase 65, Total Protein 7.1, Albumin 3.5, Globulin 3.6, Albumin/Globulin Ratio 1.0 04/21/24 08:11: POC Glucose 125 H 04/21/24 10:33: POC Glucose 206 H 04/21/24 16:57: POC Glucose 59 L Micro: Microbiology 04/20/24 16:30 Urine, Clean Catch Urine Culture - Preliminary GNR 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 The bladder is empty. A Edwards catheter is seen within it. Electronically Signed: Yemi Clifton MD at 10:25 EDT , Rhythm Strip Rhythm Strip: A-fib Rate: 56 Ectopy: None Physical Exam Const alert, oriented x3, no apparent distress and average body habitus General Appearance: cooperative, well kempt and well developed Orientation / Consciousness: awake, oriented to person, oriented to place and oriented to time HEENT normocephalic and moist oral mucous membranes Eyes PERRL, EOMs intact bilaterally and conjunctivae normal Neck supple, no JVD, thyroid normal and no carotid bruits General: trachea midline Resp normal respiratory effort, no retractions, no use of accessory muscles and clear to auscultation bilaterally Auscultation: Negative for rales, rhonchi or wheezes Cardio S1 normal heart sound, S2 normal heart sound, no murmurs, no rub and no gallops Cardio Narrative: Heart rate and rhythm is irregular GI normal to inspection, nondistended, normoactive bowel sounds, soft to palpation, non-tender and non-distended Extremity no clubbing, cyanosis or edema Skin no rashes or lesions noted General Skin Exam: no breakdown Neuro oriented x3, CN's II-XII intact bilaterally, moves all extremities, no focal motor deficits and no sensory deficits noted Sensorium / Orientation: awake and alert Speech: speech normal Psych affect normal Assessment & Plan Assessment/Plan (1) Failure of outpatient treatment: PLAN: Plan 1. 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 #2 chronic kidney disease stage IIIb-complicates care, management, recovery, and prognosis #3 chronic atrial fibrillation-patient is on apixaban and rate limiting medication #4 type 2 diabetes-fingerstick blood sugars will be monitored, sliding scale insulin will be given as needed Total clinical time spent by myself addressing the patient's medical issues, reviewing all of his data, and collaborating with patient's care team: 35 minutes Charges/Coding Visit Charges Inpatient E&M: 97728 Subs Hosp L2
[2024-04-21] MEDS: Ceftriaxone 1 GM/50 ML BAG IV (18:37)
[2024-04-21] MEDS: 0.9% Normal Saline (250mL Bag) 250 ML 15 ML IV (18:38)
[2024-04-21 19:08] LABS: Bedside Glucose 118 mg/dL (74-106)
[2024-04-21] MEDS: Vancomycin HCl 750 MG in 0.9% Normal Saline (250mL Bag) 250 ML 250 MG IV (19:44)
[2024-04-21] MEDS: MELATONIN 3 MG TABLET PO (21:43)
[2024-04-21] MEDS: Pramipexole Di-HCl 0.5 MG Tablet PO (21:46)
[2024-04-21] MEDS: Montelukast 10 MG Tablet PO (21:46)
[2024-04-21 22:27] LABS: Bedside Glucose 151 mg/dL (74-106)
[2024-04-22] VITALS (11 sets, daily range): BP systolic 119–159; BP diastolic 51–73; PULSE 51–91; RESP 14–24; TEMP 36.6–36.9; O2SAT 89–98
[2024-04-22] MEDS: Budesonide Respules 0.5 MG/2 ML AMPUL.NEB. INHALATION ×2 (07:07→19:19)
[2024-04-22] MEDS: Ipratropium/Albuterol Sulfate 3 ML AMPUL.NEB INHALATION ×5 (07:07→23:21)
[2024-04-22 08:16] LABS: Bedside Glucose 111 mg/dL (74-106)
[2024-04-22] MEDS: Pantoprazole Sodium 40 MG Tablet PO (09:03)
[2024-04-22] MEDS: Ferrous Sulfate 325 MG Tablet PO (09:03)
[2024-04-22] MEDS: Isosorbide Mononitrate 30 MG Tablet PO (09:03)
[2024-04-22] MEDS: APIXABAN 2.5 MG TABLET (WCH) PO ×2 (09:04→22:24)
[2024-04-22] MEDS: Loratadine 10 MG Tablet PO (09:04)
[2024-04-22] MEDS: hydrALAZINE 50 MG Tablet 100 MG PO (09:04)
[2024-04-22] MEDS: Acetaminophen 325 MG Tablet 650 MG PO (09:06)
[2024-04-22] MEDS: Insulin Lispro 100 UNIT/ML INSULN.PEN 15 UNIT SC ×2 (09:11→12:53)
[2024-04-22] MEDS: Insulin Glargine-YFGN 100 UNIT/ML Pen 22 UNIT SC (09:14)
[2024-04-22] MEDS: 0.9% Saline Lock 10 ML Syringe IV ×3 (10:46→22:23)
[2024-04-22] MEDS: Ondansetron 4 MG/2 ML Vial IV (10:46)
[2024-04-22 11:14] LABS: Bedside Glucose 138 mg/dL (74-106)
--- NOTE | 2024-04-22 11:50 | RAD_ITS ---
STUDY: X-RAY CHEST REASON FOR EXAM: Male, 88 years old. Sob TECHNIQUE: Single AP portable view of the chest. COMPARISON: Comparison is made with prior study of April 20, 2024. FINDINGS: EKG electrodes are seen. There is evidence of prior open reduction internal fixation of the right scapular fracture. Since prior study, there has been improved aeration of both lungs with residual interstitial changes. There is no demonstrated pleural abnormality. Normal size heart. Normal mediastinum and frank. Normal visualized pulmonary arteries. There is atherosclerotic calcification of the aortic arch with tortuosity. There are diffuse degenerative changes of the visualized thoracic spine. Normal visualized ribs, clavicles, and shoulders. There is no demonstrated abnormality of the visualized soft tissue structures of the upper abdomen. RAD/Chest 1 View (Portable) IMPRESSION: Improved aeration of the lungs as compared to prior study with residual increased interstitial markings. Electronically Signed: Yemi Clifton MD at 12:25 EDT ,
[2024-04-22] MEDS: Furosemide 40 MG/4 ML Vial IV ×2 (12:49→22:23)
--- NOTE | 2024-04-22 13:13 | PCM.PN.ID ---
Physical Exam Narrative Feeling a little better, no fever, still some dysuria. Const alert and no apparent distress General Appearance: cooperative Resp normal air movement and clear to auscultation bilaterally Cardio regular rate and regular rhythm GI soft to palpation, non-tender and non-distended Skin no rashes or lesions noted ID ID: Route of nutrition/ use of supplements: [] Nutritional Intake: [] IV Site: [] Childers Catheter: [] Assessment & Plan Assessment/Plan (1) Urinary tract infection: QUALIFIERS: Urinary tract infection type: site unspecified Hematuria presence: without hematuria Qualified Code(s): N39.0 - Urinary tract infection, site not specified PLAN: Klebs uti. Ucx 04/07 with e. faecium. Was on linezolid appropriately as an outpt. Concern he wasn't improving due to worsening urine retention. Now childers in place, no fever, normal wbc. On iv vanc, ceftriaxone. Will stop vanc. Follows with Dr. Matos. Plan for discharge will be po keflex 500mg tid for 5 more days. Will follow (2) Urinary retention:
--- NOTE | 2024-04-22 14:43 | CHAPLAIN ---
Type of Pastoral Visit _x__ Initial Visit ___ Follow-up Visit ___ On-call Visit ___ General Patient Visit ___ Spiritual Assessment ___ Family Conference ___ Bereavement ___ Rapid Response ___ Code Blue ___ Other (describe below) Pastoral Care Referral From _x__ Patient ___ Family ___ Nurse ___ Physician ___ Mold Capper Helper ___ Armature Connector ___ Other (describe below) Sacrament/Intervention _x__ Active listening ___ Anointing ___ Zoroastrianism ___ Bereavement ___ Communion _x__ Alaina exploration ___ _x__ Life review _x__ Prayer ___ Reconciliation ___ Sacrament of Sick _x__ Supportive presence ___ Wedding ___ Other (describe below) Pastoral Comments patient is a little gruff when asked questions and his sits in the corner crocheting to give away a present; pt admits discomfort but making some improvements; pt not certain about his needs so this regulatory affairs manager asked questions about his life and family; pt reveals that he has children, grandchildren, and great grandchildren; this is second of the patient and she has children etc too; as the couple gives life review they mention moving to this area from [facility] which began a long list of do you know...? as this regulatory affairs manager has lived near 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
[2024-04-22 18:24] LABS: Bedside Glucose 72 mg/dL (74-106)
--- NOTE | 2024-04-22 18:49 | PCM.PN.HOSP ---
Reason for Visit Reason for Visit: Diagnoses Hypo-osmolality and hyponatremia (04/20/24) Urinary tract infection, site not specified (04/20/24) Retention of urine, unspecified (04/20/24) Dizziness and giddiness (04/20/24) Other specified health status (04/20/24) Subjective Subjective Patient was seen and examined today, I talked extensively with his who was in the room at the time my examination. Patient's O2 sat at rest on room air was 89%, he is not currently on any Lasix which she takes at home. states that he was chronically short of breath until he went on Lasix and lost quite a bit of weight. In reviewing the patient's chart, he does see pulmonary medicine and he does have a diagnosis of chronic obstructive pulmonary disease and CHF with preserved ejection fraction. I got a chest x-ray on the patient today which showed some interstitial changes, I feel this could be early CHF and I elected to give the patient IV Lasix this afternoon and I will repeat the dose tonight. Patient will be reevaluated tomorrow for possible discharge, he may need oxygen at that time. Patient's urine culture grew out Klebsiella pneumoniae, he was placed on Rocephin and the vancomycin was stopped today. Objective Data Objective Data Vital Signs: Vital Signs Temp Pulse Resp BP Pulse Ox O2 Del Method O2 Flow Rate 97.8 F 91 18 142/67 H 95 Room Air 2 04/22/24 17:59 04/22/24 17:59 04/22/24 17:59 04/22/24 17:59 04/22/24 17:59 04/22/24 17:59 04/22/24 15:33 Oxygen Flow Rate (L/min) 2 Oxygen Delivery Method Room Air Weight: 91.2 kg Body Mass Index (BMI) 30.5 Intake & Output: Intake and Output for Last 24 Hours 04/20/24 04/21/24 04/22/24 23:59 23:59 23:59 Intake Total 1030 / 1030 1795.25 / 1795.25 1555 / 1555 Output Total 400 / 400 1300 / 1300 1700 / 1700 Balance 630 / 630 495.25 / 495.25 -145 / -145 Lab / Micro Data 04/21/24 05:13 04/21/24 05:13 Labs: Laboratory Results - last 24 hr 04/21/24 18:48: POC Glucose 118 H 04/21/24 21:42: POC Glucose 151 H 04/22/24 07:59: POC Glucose 111 H 04/22/24 10:46: POC Glucose 138 H 04/22/24 18:05: POC Glucose 72 L Micro: Microbiology 04/20/24 16:30 Urine, Clean Catch Urine Culture - Final Klebsiella pneumoniae sp pneum Radiography Diagnostic Testing: Radiology Impression Chest X-Ray 04/22/24 11:50 IMPRESSION: Improved aeration of the lungs as compared to prior study with residual increased interstitial markings. Electronically Signed: Yemi Clifton MD at 12:25 EDT , Rhythm Strip Rhythm Strip: A-fib Rate: 56 Ectopy: None Physical Exam Narrative alert, oriented x3, no apparent distress and average body habitus General Appearance: cooperative, well kempt and well developed Orientation / Consciousness: awake, oriented to person, oriented to place and oriented to time HEENT normocephalic and moist oral mucous membranes Eyes PERRL, EOMs intact bilaterally and conjunctivae normal Neck supple, no JVD, thyroid normal and no carotid bruits General: trachea midline Resp normal respiratory effort, no retractions, no use of accessory muscles Auscultation: Inspiratory rales are noted over the patient's lower third lung lynn bilaterally Cardio S1 normal heart sound, S2 normal heart sound, no murmurs, no rub and no gallops Cardio Narrative: Heart rate and rhythm is irregular GI normal to inspection, nondistended, normoactive bowel sounds, soft to palpation, non-tender and non-distended Extremity no clubbing, cyanosis or edema Skin no rashes or lesions noted General Skin Exam: no breakdown Neuro oriented x3, CN's II-XII intact bilaterally, moves all extremities, no focal motor deficits and no sensory deficits noted Sensorium / Orientation: awake and alert Speech: speech normal Psych affect normal Assessment & Plan Assessment/Plan (1) Acute on chronic heart failure with normal ejection fraction: (2) Failure of outpatient treatment: PLAN: Plan 1. Acute cystitis with failure of outpatient antibiotic treatment-again patient's culture grew out Klebsiella, he is currently on Rocephin and ID states that the patient can be discharged on Keflex. #2 chronic kidney disease stage IIIb-complicates care, management, recovery, and prognosis #3 chronic atrial fibrillation-patient is on apixaban and rate limiting medication #4 type 2 diabetes-fingerstick blood sugars will be monitored, sliding scale insulin will be given as needed #5 acute exacerbation of chronic diastolic congestive heart failure-even though the patient's chest x-ray does not show an obvious pulmonary edema pattern, I believe he is in mild CHF, I will give the patient IV Lasix tonight again and his pulse ox will be monitored. #6 hypoxia secondary to #5 with an overlap of chronic obstructive pulmonary disease-patient will need oxygen qualification tomorrow before he goes home, patient and the patient's states that if the patient is borderline needing O2, the patient would rather not go home on oxygen. Total clinical time spent by myself addressing the patient's medical issues, reviewing all of his data, and collaborating with patient's care team: 35 minutes Charges/Coding Visit Charges Inpatient E&M: 62709 Subs Hosp L2
[2024-04-22] MEDS: Ceftriaxone 1 GM/50 ML BAG IV (22:23)
[2024-04-22] MEDS: Pramipexole Di-HCl 0.5 MG Tablet PO (22:24)
[2024-04-22] MEDS: Montelukast 10 MG Tablet PO (22:24)
[2024-04-22] MEDS: guaiFENesin Dm 10 ML UDC PO (22:38)
[2024-04-23] VITALS (9 sets, daily range): BP systolic 121–148; BP diastolic 61–70; PULSE 64–79; RESP 16–20; TEMP 36.6–37.1; O2SAT 86–98
[2024-04-23 00:03] LABS: Bedside Glucose 125 mg/dL (74-106)
--- NOTE | 2024-04-23 00:56 | CPS ---
Patient was 85% on RA. 2L of oxygen bled into patient's own PAP machine for the night. Spo2 increased to 94%
[2024-04-23] MEDS: Ipratropium/Albuterol Sulfate 3 ML AMPUL.NEB INHALATION ×3 (06:54→15:39)
[2024-04-23] MEDS: Budesonide Respules 0.5 MG/2 ML AMPUL.NEB. INHALATION (06:54)
[2024-04-23 07:33] LABS: Anion Gap 7 (5-15); BUN 36 mg/dL (7-18); Calcium,Total 8.9 mg/dL (8.5-10.1); Chloride 101 mmol/L (98-107); EST Glomerular Filtration Rate 34 mL/min (>60); Est Glom Filt Rate - Afr Amer 41 mL/min (>60); Estimated Creatinine Clearance 29.07 ml/min; Glucose 117 mg/dL (74-106); Potassium 4.2 mmol/L (3.5-5.1); Sodium Level 135 mmol/L (136-145)
[2024-04-23] MEDS: Loratadine 10 MG Tablet PO (08:42)
[2024-04-23] MEDS: APIXABAN 2.5 MG TABLET (WCH) PO (08:43)
[2024-04-23] MEDS: Pantoprazole Sodium 40 MG Tablet PO (08:43)
[2024-04-23] MEDS: hydrALAZINE 50 MG Tablet 100 MG PO (08:43)
[2024-04-23] MEDS: Atorvastatin Calcium 40 MG Tablet PO (08:43)
[2024-04-23] MEDS: Isosorbide Mononitrate 30 MG Tablet PO (08:44)
[2024-04-23] MEDS: guaiFENesin Dm 10 ML UDC PO ×2 (08:51→11:50)
[2024-04-23] MEDS: Insulin Lispro 100 UNIT/ML INSULN.PEN 10 UNIT SC ×2 (08:53→13:28)
[2024-04-23] MEDS: Insulin Glargine-YFGN 100 UNIT/ML Pen 18 UNIT SC (08:54)
[2024-04-23 09:06] LABS: Bedside Glucose 120 mg/dL (74-106)
[2024-04-23] MEDS: Furosemide 40 MG/4 ML Vial IV (09:30)
[2024-04-23] MEDS: 0.9% Saline Lock 10 ML Syringe IV (09:30)
[2024-04-23] MEDS: Acetaminophen 325 MG Tablet 650 MG PO (11:49)
[2024-04-23 12:38] LABS: Bedside Glucose 144 mg/dL (74-106)
--- NOTE | 2024-04-23 14:46 | DCINST_ITS ---
Discharge Instructions Diet Discharge Diet: No restrictions Activity Discharge Activity: Return to Normal Activity Weight Bearing Status: Full weight bearing Follow Up Care Test Results: Test results from this visit will be discussed in further detail at your follow- up appointment, if applicable. Discharge Plan Admission Admit Date/Time: 04/20/24 18:44 Primary Reason for Your Visit: UTI, CHF Attending Provider: Inocencio Perkins Primary Care Provider: Carolynn Whitman Consulting Providers: Natanael Christensen; Rhonda Grayson Discharge Orders/Prescriptions Prescriptions: New lactulose 20 gram/30 mL solution 20 g PO BID Qty: 1200 0RF Rx Instructions: 30 ml once or twice daily for constipation cephalexin 500 mg tablet 500 mg PO TID Qty: 15 0RF Rx Instructions: start on 04/24/24 Continued ammonium lactate 12 % lotion 1 applic TOPICAL QD-BID PRN (Reason: dry skin ) (DME) handicap placcard Qty: 1 0RF Rx Instructions: Lifetime: debility coenzyme Q10 [Co Q-10] 100 mg capsule 100 mg PO DAILY ascorbate calcium (vitamin C) 500 mg tablet 500 mg PO DAILY cholecalciferol (vitamin D3) 100 mcg (4,000 unit) tablet 100 mcg PO DAILY (DME) spacer See Rx Instructions .ROUTE .MEDSUPPLY Qty: 1 0RF Rx Instructions: As directed ipratropium bromide 42 mcg (0.06 %) spray,non-aerosol 2 spray INTRANASAL TID-QID PRN (Reason: allergy symptoms) Qty: 15 6RF Rx Instructions: nasal drip - administer into each nostril; wait 30 seconds between sprays (DME) lancets Misc See Rx Instructions .Route Qty: 180 1RF Rx Instructions: twice daily hydralazine 100 mg tablet 100 mg PO BID Qty: 180 3RF ropinirole 1 mg tablet 1 mg PO QHS Qty: 90 3RF Rx Instructions: administer 1-3 hours before bedtime albuterol sulfate [Ventolin HFA] 90 mcg/actuation HFA aerosol inhaler 2 inh INHALATION Q4H PRN (Reason: shortness of breath or wheezing) Qty: 18 6RF insulin lispro [Humalog KwikPen Insulin] 100 unit/mL Insulin Pen 15 unit subcut TIDAC Qty: 15 2RF Rx Instructions: Hold if glucose less than 130 mg/dl furosemide 40 mg Tablet 80 mg PO BID Rx Instructions: Hold for NARENDRA ipratropium-albuterol 0.5 mg-3 mg(2.5 mg base)/3 mL solution for nebulization 3 ml inhalation .COMPLEX Rx Instructions: 3 mL inhaled Q4H WA .RT; nitroglycerin [Nitrostat] 0.4 mg tablet, sublingual 0.4 mg SUBLINGUAL Q5-15M PRN (Reason: chest pain) Qty: 25 2RF montelukast 10 mg tablet 10 mg PO QHS Qty: 90 3RF carvedilol 25 mg tablet 25 mg PO BID Qty: 180 3RF Rx Instructions: must administer with a meal/food atorvastatin 40 mg tablet 40 mg PO QODAY Qty: 45 3RF pantoprazole 40 mg tablet,delayed release (DR/EC) 40 mg PO DAILY Qty: 90 1RF ipratropium bromide 0.02 % solution 2.5 ml inhalation Q6H PRN (Reason: shortness of breath or wheezing) Qty: 150 11RF isosorbide mononitrate 30 mg tablet extended release 24 hr 30 mg PO DAILY Qty: 90 1RF ferrous sulfate 325 mg (65 mg iron) tablet 325 mg PO Q OTHER DAY Qty: 45 1RF Eliquis 2.5 mg tablet 2.5 mg PO BID Qty: 90 1RF budesonide-formoterol [Symbicort] 160-4.5 mcg/actuation HFA aerosol inhaler 2 puff inhalation BID Qty: 3 3RF Rx Instructions: administer with spacer, rinse mouth after each use sennosides-docusate sodium [Stool Softener-Stimulant Laxat] 8.6-50 mg tablet 2 tab PO BID PRN (Reason: constipation) 30 Days Qty: 60 4RF (DME) pen needle, diabetic [1st Tier Unifine Pentips] 31 gauge x 1/4 needle See Rx Instructions .Route Qty: 100 1RF Rx Instructions: daily loratadine 10 mg tablet 10 mg PO DAILY Qty: 90 0RF (DME) OneTouch Ultra Test Strip See Rx Instructions .Route Qty: 180 1RF Rx Instructions: Check three to four times a day. insulin glargine-yfgn 100 unit/mL (3 mL) insulin pen 22 unit subcut DAILY Qty: 15 1RF Discontinued linezolid 600 mg tablet 600 mg PO Q12H 10 Days Qty: 20 0RF Referrals / Follow Up: Carolynn Whitman MD [Primary Care Provider] -
--- NOTE | 2024-04-23 14:55 | PCM.HOSP.N ---
Hospitalist Note I have reviewed the oxygen testing, and this patient qualifies for the home equipment and portability. The patient is mobile in the home and the community.
--- NOTE | 2024-04-23 15:06 | CASEMGMT ---
Patient has order for discharge. Patient qualifies for home oxygen. RN CM in to discuss home oxygen at discharge. Agencies reviewed and prefers [employer]. Patient denies further needs or help at discharge. Patient had no further questions or concerns. RN CM received script for home oxygen and referral sent to [facility]. COLLEEN BECERRA arranged for portable tank to be delivered to patient's room.
[2024-04-23] MEDS: Ceftriaxone 1 GM/50 ML BAG IV (15:09)
[2024-04-23 17:26] LABS: Bedside Glucose 82 mg/dL (74-106)
[2024-04-24 15:00] LABS: Bedside Glucose 43 mg/dL (74-106)
[2024-04-24 15:00] LABS: Bedside Glucose 40 mg/dL (74-106)
--- NOTE | 2024-05-12 14:06 | DS.PCM_ITS ---
Providers Date of Admission: 04/20/24 Date of Discharge: 05/24/24 Primary Care Physician: Dr. Carolynn Whitman MD Consultations 04/20/24 20:06 Consult: Infectious Disease Routine Consulting Provider: Natanael Christensen Reason for Consult: UTI resistant E. Faecalis EMERGENT Consult: No MD Notified: Yes Date Notified: 04/21/24 Time Notified: 06:25 Method of Notification: Text Reason For Visit: UTI/DEHYDRATION Diagnosis Discharge Diagnosis (1) Acute on chronic heart failure with normal ejection fraction: Status: Inactive Code(s): I50.33 - Acute on chronic diastolic (congestive) heart failure (2) Failure of outpatient treatment: Status: Inactive Code(s): Z78.9 - Other specified health status Plan 1. Acute cystitis with failure of outpatient antibiotic treatment, patient was not on appropriate antibiotic-again patient's culture grew out Klebsiella, he is currently on Rocephin and ID states that the patient can be discharged on Keflex. #2 chronic kidney disease stage IIIb-complicates care, management, recovery, and prognosis #3 chronic atrial fibrillation-patient is on apixaban and rate limiting medication #4 type 2 diabetes-fingerstick blood sugars will be monitored, sliding scale insulin will be given as needed #5 acute exacerbation of chronic diastolic congestive heart failure-even though the patient's chest x-ray does not show an obvious pulmonary edema pattern, I believe he is in mild CHF, I will give the patient IV Lasix tonight again and his pulse ox will be monitored. #6 hypoxia secondary to #5 with an overlap of chronic obstructive pulmonary disease-patient will need oxygen qualification tomorrow before he goes home, patient and the patient's states that if the patient is borderline needing O2, the patient would rather not go home on oxygen. #7 hyponatremia-not clinically significant #8 chronic urinary retention Total clinical time spent by myself addressing the patient's medical issues, reviewing all of his data, and collaborating with patient's care team: 35 minutes Medications at Discharge Home Medications ammonium lactate 12 % lotion 1 applic topical QD-BID PRN dry skin 02/06/18 handicap placcard #1 ea 09/28/19 ascorbate calcium (vitamin C) 500 mg tablet 500 mg PO DAILY Bone strength 05/03/20 coenzyme Q10 100 mg capsule (Co Q-10) 100 mg PO DAILY supplement 05/03/20 cholecalciferol (vitamin D3) 100 mcg (4,000 unit) tablet 100 mcg PO DAILY supplement 11/03/20 spacer #1 ea 01/12/21 nitroglycerin 0.4 mg sublingual tablet (Nitrostat) 0.4 mg sublingual Q5-15M PRN chest pain #25 tabs 06/08/22 lancets #180 ea 07/18/23 ipratropium bromide 42 mcg (0.06 %) nasal spray 2 spray intranasal TID-QID PRN allergy symptoms #15 mL 10/23/23 pantoprazole 40 mg tablet,delayed release 40 mg PO DAILY reflux #90 tabs 11/19/23 ipratropium bromide 0.02 % solution for inhalation 2.5 ml inhalation Q6H PRN shortness of breath or wheezing #150 mL 12/06/23 hydralazine 100 mg tablet 100 mg PO BID hypertension #180 tabs 12/26/23 albuterol sulfate 90 mcg/actuation aerosol inhaler (Ventolin HFA) 2 inh inhalation Q4H PRN shortness of breath or wheezing #18 grams 01/01/24 isosorbide mononitrate 30 mg tablet,extended release 24 hr 30 mg PO DAILY htn/chf #90 tabs 01/22/24 ferrous sulfate 325 mg (65 mg iron) tablet 325 mg PO Q OTHER DAY anemia #45 tabs 02/10/24 apixaban 2.5 mg tablet (Eliquis) 2.5 mg PO BID atrial fibrillation #90 tabs 03/13/24 ropinirole 1 mg tablet 1 mg PO QHS restless leg #90 tabs 03/23/24 budesonide-formoterol HFA 160 mcg-4.5 mcg/actuation aerosol inhaler (Symbicort) 2 puff inhalation BID copd #3 ea 03/26/24 loratadine 10 mg tablet 10 mg PO DAILY allergys #90 tabs 04/05/24 blood sugar diagnostic ([employer] Ultra Test strips) #180 ea 04/07/24 furosemide 40 mg tablet 80 mg PO BID chf 04/20/24 ipratropium 0.5 mg-albuterol 3 mg (2.5 mg base)/3 mL nebulization soln 3 ml inhalation .COMPLEX SOB &/OR WHEEZING 07/15/24 carvedilol 25 mg tablet 25 mg PO ONCE a.fib/chf/htn 05/01/24 insulin glargine-yfgn 100 unit/mL (3 mL) subcutaneous pen 18 unit subcut DAILY dm2 05/01/24 insulin lispro 100 unit/mL subcutaneous pen (Humalog KwikPen (U-100) Insulin) 10 unit subcut TIDAC dm2 05/01/24 lactulose 20 gram/30 mL oral solution 20 g PO BID 05/01/24 atorvastatin 40 mg tablet 40 mg PO QODAY cholesterol #45 tabs 05/04/24 montelukast 10 mg tablet 10 mg PO QHS Respiratory #90 tabs 05/04/24 pen needle, diabetic 31 gauge x 1/4 (1st Tier Unifine Pentips) #100 ea 05/06/24 Hospital Course Operations None Procedures None Summary of Care Provided Minutes Spent on Discharge: 31 Hospital Course: This 88-year-old white male was seen in the emergency room at [facility] after being brought in by his with complaints of feeling unwell, lightheaded, and weak. Workup in the emergency room revealed a normal CBC, patient's chemistry panel was remarkable for sodium of 133, creatinine of 2.43 and BUN of 50. Patient's beta natruretic peptide was 503 and glucose was 196. Patient's urinalysis showed 3+ bacteria and 50-100 WBCs. Chest x-ray showed findings suggestive of scarring no acute abnormality was seen. EKG showed A-fib with a well-controlled ventricular response. Patient was admitted to PCU for urinary tract infection and near syncope. Patient was treated with IV fluids and IV antibiotics patient's blood sugars were monitored. Patient was seen in consultation by infectious diseases, it was recommended the patient be placed on Keflex as an outpatient and follow-up with urology due to urinary retention. Patient's urine culture grew out Klebsiella, he was not taking an outpatient antibiotic that would have cover this organism. On 04/23/2024, patient was seen and examined: On examination he appeared in good health and spirits. Vital signs as documented. Skin warm and dry and without overt rashes. Neck without JVD, neck was supple, trachea midline, thyroid was normal. Lungs clear bilaterally, normal air movement was noted. Heart exam notable for irregular rhythm, normal sounds and absence of murmurs, rubs or gallops. Abdomen unremarkable and without evidence of organomegaly, masses, or abdominal aortic enlargement. Bowel sounds are present, abdomen is not distended. Extremities nonedematous, no cyanosis was noted, no clubbing was noted. Neuro: Cranial nerves II through XII are grossly intact, no focal motor deficits were noted, sensation to light touch and pinprick intact, motor exam 5/5 throughout. Psych: Patient is alert and oriented x3, he does not appear anxious or depressed, he does not appear agitated. Patient was discharged home in stable condition on 04/23/2024 Weight / BMI Weight Weight: 91.2 kg Body Mass Index (BMI) 30.5 ABG / Lab / Microbiology Data 04/21/24 05:13 04/23/24 06:52 Microbiology: Microbiology 04/20/24 16:30 Urine, Clean Catch Urine Culture - Final Klebsiella pneumoniae sp pneum D/C Instructions Discharge Diet: No restrictions Weight Bearing Status: Full weight bearing Meaningful Use Info Meaningful Use Meaningful Use Diagnoses (Choose all that apply): None applicable Ischemic Stroke Statin Dosing Therapy Reference: STATIN DOSE THERAPY REFERENCE: * Patients > 75 years receive moderate or high dose statin therapy. * Patients 75 years or YOUNGER should receive HIGH intensity statin dose unless contraindicated. You will be required to document reason for non-treatment if statin daily dose does not meet guidelines. HIGH DOSE STATIN THERAPY DAILY Atorvastatin > than or = to 40 mg Rosuvastatin > than or = to 20 mg Amlodipine + Atorvastatin > than or = to 2.5/40 mg Ezetimibe + Simvastatin 10/80 mg Simvastatin 80mg Discharge Plan Admission Admit Date/Time: 04/20/24 18:44 Primary Reason for Your Visit: UTI, CHF Attending Provider: Inocencio Perkins Primary Care Provider: Carolynn Whitman Consulting Providers: Natanael Christensen; Rhonda Grayson Instructions Additional Instructions / Restrictions: Oxygen at 2 liters while walking/ambulating Discharge Orders/Prescriptions Prescriptions: Continued ammonium lactate 12 % lotion 1 applic TOPICAL QD-BID PRN (Reason: dry skin ) (DME) handicap placcard Qty: 1 0RF Rx Instructions: Lifetime: debility coenzyme Q10 [Co Q-10] 100 mg capsule 100 mg PO DAILY ascorbate calcium (vitamin C) 500 mg tablet 500 mg PO DAILY cholecalciferol (vitamin D3) 100 mcg (4,000 unit) tablet 100 mcg PO DAILY (DME) spacer See Rx Instructions .ROUTE .MEDSUPPLY Qty: 1 0RF Rx Instructions: As directed ipratropium bromide 42 mcg (0.06 %) spray,non-aerosol 2 spray INTRANASAL TID-QID PRN (Reason: allergy symptoms) Qty: 15 6RF Rx Instructions: nasal drip - administer into each nostril; wait 30 seconds between sprays (DME) lancets Misc See Rx Instructions .Route Qty: 180 1RF Rx Instructions: twice daily hydralazine 100 mg tablet 100 mg PO BID Qty: 180 3RF ropinirole 1 mg tablet 1 mg PO QHS Qty: 90 3RF Rx Instructions: administer 1-3 hours before bedtime albuterol sulfate [Ventolin HFA] 90 mcg/actuation HFA aerosol inhaler 2 inh INHALATION Q4H PRN (Reason: shortness of breath or wheezing) Qty: 18 6RF furosemide 40 mg Tablet 80 mg PO BID Rx Instructions: Hold for NARENDRA ipratropium-albuterol 0.5 mg-3 mg(2.5 mg base)/3 mL solution for nebulization 3 ml inhalation .COMPLEX Rx Instructions: 3 mL inhaled Q4H WA .RT; nitroglycerin [Nitrostat] 0.4 mg tablet, sublingual 0.4 mg SUBLINGUAL Q5-15M PRN (Reason: chest pain) Qty: 25 2RF pantoprazole 40 mg tablet,delayed release (DR/EC) 40 mg PO DAILY Qty: 90 1RF ipratropium bromide 0.02 % solution 2.5 ml inhalation Q6H PRN (Reason: shortness of breath or wheezing) Qty: 150 11RF isosorbide mononitrate 30 mg tablet extended release 24 hr 30 mg PO DAILY Qty: 90 1RF ferrous sulfate 325 mg (65 mg iron) tablet 325 mg PO Q OTHER DAY Qty: 45 1RF Eliquis 2.5 mg tablet 2.5 mg PO BID Qty: 90 1RF budesonide-formoterol [Symbicort] 160-4.5 mcg/actuation HFA aerosol inhaler 2 puff inhalation BID Qty: 3 3RF Rx Instructions: administer with spacer, rinse mouth after each use loratadine 10 mg tablet 10 mg PO DAILY Qty: 90 0RF (DME) OneTouch Ultra Test Strip See Rx Instructions .Route Qty: 180 1RF Rx Instructions: Check three to four times a day. Discontinued linezolid 600 mg tablet 600 mg PO Q12H 10 Days Qty: 20 0RF No Action carvedilol 25 mg tablet 25 mg PO ONCE Patient Comments: pt states he only takes one in the evening due to his blood pressure drops too low Rx Instructions: must administer with a meal/food insulin glargine-yfgn 100 unit/mL (3 mL) insulin pen 18 unit subcut DAILY Patient Comments: pt states he takes it in pm insulin lispro [Humalog KwikPen Insulin] 100 unit/mL insulin pen 10 unit subcut TIDAC Rx Instructions: Hold if glucose less than 130 mg/dl lactulose 20 gram/30 mL solution 20 g PO BID Patient Comments: pt states he takes it sometimes daily Rx Instructions: 30 ml once or twice daily for constipation atorvastatin 40 mg tablet 40 mg PO QODAY Qty: 45 3RF montelukast 10 mg tablet 10 mg PO QHS Qty: 90 3RF (DME) pen needle, diabetic [1st Tier Unifine Pentips] 31 gauge x 1/4 needle See Rx Instructions .Route Qty: 100 1RF Rx Instructions: 3-4 times daily Referrals / Follow Up: Carolynn Whitman MD [Primary Care Provider] - Within 1 Week Mikael Matos MD [Med Staff - Active Staff] - Disposition Disposition (needs filled in before D/C Order can be placed): Home, Self Care Charges/Coding Visit Charges Inpatient E&M: 85269 Disch Hosp >30min
== END 2024-04-23 18:10 | disposition home or self-care (01) | DRG 689 ==
LOC: ED 16:12 → PCU 19:37
PROVIDERS: Admitting Provider Internal Medicine; Emergency Provider Emergency Medicine; PCP Internal Medicine; Visit Provider Internal Medicine
DX: N30.00 Acute cystitis without hematuria (principal); I50.33 Acute on chronic diastolic (congestive) heart failure; I48.20 Chronic atrial fibrillation, unspecified; E87.1 Hypo-osmolality and hyponatremia; I13.0 Hypertensive heart and chronic kidney disease with heart failure and stage 1 through stage 4 chronic kidney disease, or unspecified chronic kidney disease; E11.22 Type 2 diabetes mellitus with diabetic chronic kidney disease; E11.51 Type 2 diabetes mellitus with diabetic peripheral angiopathy without gangrene; B96.1 Klebsiella pneumoniae [K. pneumoniae] as the cause of diseases classified elsewhere; D64.9 Anemia, unspecified; G25.81 Restless legs syndrome; N18.32 Chronic kidney disease, stage 3b; J44.89 Other specified chronic obstructive pulmonary disease; I71.40 Abdominal aortic aneurysm, without rupture, unspecified; Z79.4 Long term (current) use of insulin; K21.9 Gastro-esophageal reflux disease without esophagitis; I25.10 Atherosclerotic heart disease of native coronary artery without angina pectoris; E78.5 Hyperlipidemia, unspecified; G47.33 Obstructive sleep apnea (adult) (pediatric); Z66 Do not resuscitate; Z87.891 Personal history of nicotine dependence; Z79.01 Long term (current) use of anticoagulants; Z95.5 Presence of coronary angioplasty implant and graft; Z79.51 Long term (current) use of inhaled steroids; Z87.440 Personal history of urinary (tract) infections; R33.9 Retention of urine, unspecified
CPT/HCPCS: 36415; 51702; 71045; 76770; 80048; 80053; 81001; 82962; 83605; 83735; 83880; 84100; 84484; 85025; 85610; 85730; 87077; 87086; 87088; 87186; 93005; 94640; 94668; 97110; 97162; 97165; 97530; 97802; 99252; 99285; J7040; J7050; J7120; A4216; G0463; J1940; J2405

== ENCOUNTER → 2024-05-01 | Outpatient (CLI) | payer MEDICARE, SELFPAY | END | disposition home or self-care (01) | LOC: LABSPEC 13:04 | PROVIDERS: PCP Internal Medicine; Referring Provider Physician Assistant; Visit Provider Physician Assistant | DX: N39.0 Urinary tract infection, site not specified (principal) | CPT/HCPCS: 87077; 87086; 87088; 87186 ==

== ENCOUNTER → 2024-05-04 | Outpatient (CLI) | payer MEDICARE, SELFPAY | END | disposition home or self-care (01) | LOC: LABSPEC 15:38 | PROVIDERS: PCP Internal Medicine; Referring Provider Urology; Visit Provider Urology | DX: N39.0 Urinary tract infection, site not specified (principal) | CPT/HCPCS: 87077; 87086; 87088; 87186 ==

== ENCOUNTER → 2024-05-29 | Outpatient (CLI) | payer MEDICARE, SELFPAY ==
[2024-05-29 19:12] LABS: Absolute Lymphocyte Count 1.06 X10^3/uL (0.83-4.51); Absolute Neutrophil Count 7.1 X10^3/uL (2.0-7.7); Basophil# 0.04 X10^3/uL; Basophil% 0.4 % (0-1); Eosinophil# 0.13 X10^3/uL; Eosinophils% 1.4 % (0-5); Hematocrit 41.3 % (40-54); Hemoglobin 12.9 g/dL (13.0-16.5); Lymphocyte # 1.06 X10^3/ul (0.83-4.51); Lymphocyte % 11.7 % (19-41); Mean Corp Hgb Conc 31.2 g/dL (32-36); Mean Corpuscular Hgb 28.2 pg (27.0-32.0); Mean Corpuscular Volume 90.4 fL (80-94); Monocyte# 0.69 X10^3/uL; Monocyte% 7.6 % (0-10); NRBC Flagged by Analyzer 0 % (0-5); Neutrophil # 7.13 X10^3/uL (2.7-7.7); Neutrophil % 78.7 % (47-70); Platelet Count 236 K/mm3 (150-450); RBC Distribution Width SD 52.3 fl (35.1-43.9); Red Blood Count 4.57 M/mm3 (4.6-6.2); White Blood Count 9.1 K/mm3 (4.4-11.0)
[2024-05-29 19:45] LABS: Anion Gap 8 (5-15); Calcium,Total 9.8 mg/dL (8.5-10.1); Chloride 100 mmol/L (98-107); Creatinine, Serum 2.16 mg/dL (0.70-1.30); EST Glomerular Filtration Rate 31 mL/min (>60); Est Glom Filt Rate - Afr Amer 37 mL/min (>60); Glucose 233 mg/dL (74-106); Potassium 4.3 mmol/L (3.5-5.1)
[2024-05-29 19:47] LABS: Sodium Level 136 mmol/L (136-145)
== END | disposition home or self-care (01) ==
LOC: MTLAB 14:22
PROVIDERS: PCP Internal Medicine; Referring Provider Nurse Practitioner; Visit Provider Nurse Practitioner
DX: D64.9 Anemia, unspecified (principal)
CPT/HCPCS: 36415; 80048; 85025

== ENCOUNTER → 2024-06-01 | Outpatient (CLI) | payer MEDICARE, SELFPAY ==
--- NOTE | 2024-06-01 15:48 | RAD_ITS ---
STUDY: X-RAY CHEST REASON FOR EXAM: Male, 88 years old. cough TECHNIQUE: Frontal and lateral views of the chest. COMPARISON: 04/22/2024. FINDINGS: The lungs are hyperexpanded. There are coarsened interstitial markings suggestive of mild chronic fibrosis. No gross focal infiltrates. No gross effusions. There is mild cardiac enlargement. Normal mediastinum and frank. Normal visualized pulmonary arteries. There is atherosclerotic calcification of the aortic arch with tortuosity. Normal visualized thoracic spine. Compression plate and screws of the right clavicle, stable. There is no demonstrated abnormality of the visualized soft tissue structures of the upper abdomen. RAD/Chest PA and Lateral IMPRESSION: There are findings consistent with COPD. There is no evidence of acute chest disease. Electronically Signed: Hunter Perea MD at 16:56 EDT ,
[2024-06-01 16:03] LABS: AST(SGOT) 23 U/L (15-37); Alanine Aminotransfer ALT/SGPT 20 U/L (16-61); Albumin, Serum 3.3 g/dL (3.2-5.0); Alkaline Phosphatase 85 U/L (45-117); Bilirubin, Direct 0.19 mg/dL (0.00-0.30); Cholesterol 118 mg/dL (200); Globulin 3.9 g/dL (2.2-4.2); High Density Lipoprotein 39 mg/dL; Protein, Total 7.2 g/dL (6.4-8.2); Triglycerides 46 mg/dL; Very Low Density Lipoprotein 9 mg/dL (5-40)
[2024-06-01 18:40] LABS: Microalbumin:Creatinine Ratio 259.7 mg/g CRE (<30 mg/g CRE)
[2024-06-01 20:23] LABS: Anion Gap 7 (5-15); BUN 37 mg/dL (7-18); BUN/Creat Ratio 14.5 RATIO (10-20); Calcium,Total 9.8 mg/dL (8.5-10.1); Chloride 102 mmol/L (98-107); Creatinine, Serum 2.55 mg/dL (0.70-1.30); EST Glomerular Filtration Rate 26 mL/min (>60); Est Glom Filt Rate - Afr Amer 31 mL/min (>60); Glucose 187 mg/dL (74-106); Potassium 3.9 mmol/L (3.5-5.1); Sodium Level 136 mmol/L (136-145)
== END | disposition home or self-care (01) ==
LOC: MTLAB 11:41 → LAB 14:34
PROVIDERS: PCP Internal Medicine; Referring Provider Nurse Practitioner Gerontology; Visit Provider Nurse Practitioner Gerontology
DX: N18.4 Chronic kidney disease, stage 4 (severe) (principal)
CPT/HCPCS: 36415; 71046; 80048; 80061; 80076; 82043; 82570

== ENCOUNTER 2024-06-25 11:18 | Emergency (ER) | payer MEDICARE, SELFPAY ==
[2024-06-25] VITALS (7 sets, daily range): BP systolic 131–184; BP diastolic 70–82; PULSE 66–80; RESP 15–22; TEMP 36.1–37.2; O2SAT 94–98; BMI 29.5
--- NOTE | 2024-06-25 11:26 | RAD_ITS ---
STUDY: X-RAY CHEST REASON FOR EXAM: Male, 89 years old. Chest pain TECHNIQUE: Single AP portable view of the chest. COMPARISON: Comparison is made with prior study June 01, 2004. FINDINGS: Stable mild increased interstitial markings at the lung bases suggestive of scarring. There has been no change. There is no demonstrated pleural abnormality. Normal size heart. Normal mediastinum and frank. Normal visualized pulmonary arteries. There is atherosclerotic calcification of the aortic arch with tortuosity. There are diffuse degenerative changes of the visualized thoracic spine. Status post ORIF of a right midclavicular fracture. There is no demonstrated abnormality of the visualized soft tissue structures of the upper abdomen. RAD/Chest 1 View (Portable) IMPRESSION: Stable mild increased markings at the lung bases suggestive of mild scarring. Electronically Signed: Yemi Clifton MD at 12:12 EDT ,
--- NOTE | 2024-06-25 11:26 | EKG12_ITS ---
Test Reason : CP Blood Pressure : / mmHG Vent. Rate : 071 BPM Atrial Rate : 000 BPM P-R Int : 000 ms QRS Dur : 094 ms QT Int : 426 ms P-R-T Axes : 000 050 -71 degrees QTc Int : 462 ms Atrial fibrillation with premature ventricular or aberrantly conducted complexes Nonspecific ST and T wave abnormality Prolonged QT Abnormal ECG Confirmed by Bryant Tsang ([id number]), general expeditor AMPARO MALHOTRA ([id number]) on 06/29/2024 1:19:11 PM Referred By: Confirmed By:Bryant Tsang
[2024-06-25 11:39] LABS: Absolute Lymphocyte Count 1.64 X10^3/uL (0.83-4.51); Absolute Neutrophil Count 4.7 X10^3/uL (2.0-7.7); Basophil# 0.05 X10^3/uL; Basophil% 0.7 % (0-1); Eosinophil# 0.09 X10^3/uL; Eosinophils% 1.3 % (0-5); Hematocrit 39.7 % (40-54); Hemoglobin 13.2 g/dL (13.0-16.5); Lymphocyte # 1.64 X10^3/ul (0.83-4.51); Mean Corp Hgb Conc 33.2 g/dL (32-36); Mean Corpuscular Hgb 31.1 pg (27.0-32.0); Mean Corpuscular Volume 93.4 fL (80-94); Mean Platelet Vol. 9.8 fl (6.2-12.0); Monocyte# 0.64 X10^3/uL; NRBC Flagged by Analyzer 0 % (0-5); Neutrophil # 4.67 X10^3/uL (2.7-7.7); Neutrophil % 65.4 % (47-70); Platelet Count 306 K/mm3 (150-450); RBC Distribution Width CV 16.8 % (11.6-14.6); Red Blood Count 4.25 M/mm3 (4.6-6.2); White Blood Count 7.1 K/mm3 (4.4-11.0)
--- NOTE | 2024-06-25 11:45 | ED.VIS.CHEST ---
HPI History of Present Illness Chief Complaint: Chest Pain [facility] Medical History Edema Colonic mass Controlled type 2 diabetes mellitus Acute respiratory insufficiency Chronic anemia Bilateral edema of lower extremity Failure of outpatient treatment Urinary tract infection Acute on chronic heart failure with normal ejection fraction Urinary retention Chronic kidney disease Frequent hospital admissions Fatigue Colonic mass Pleural effusion (HFpEF) heart failure with preserved ejection fraction Pneumonia Colon polyp Lightheadedness Chronic constipation Anemia Constipation Obstructive sleep apnea Coronary artery disease Gastroesophageal reflux disease Allergic rhinitis Hyperlipidemia Urinary retention Debility Wears hearing aid Wears dentures Wears glasses Cancer History of steroid therapy Ambulates with cane Walker as ambulation aid Arthritis Kidney stone History of renal disease Easy bruising Back pain Injury of back History of hiatal hernia Former smoker BiPAP (biphasic positive airway pressure) dependence Sleep apnea Asthma Shortness of breath on exertion Hoarseness Chronic cough Leg cramps History of pain when walking History of edema History of stress test History of heart attack History of irregular heartbeat Acute cystitis with hematuria Recurrent urinary tract infection ALMEIDA (dyspnea on exertion) Chest pain Right leg swelling Patellar bursitis of right knee Asthma-COPD overlap syndrome Abdominal aortic aneurysm (AAA) Peripheral vascular disease of extremity with claudication Rectus sheath hematoma Pre-syncope Essential (primary) hypertension Restless legs syndrome MARIXA (obstructive sleep apnea) Daytime hypersomnia Somatic dysfunction of pelvic region DDD (degenerative disc disease), lumbar Overweight Seasonal allergies Carotid bruit Atherosclerotic heart disease of [place] coronary artery without angina pectoris PVD (peripheral vascular disease) Dyslipidemia DM2 (diabetes mellitus, type 2) COPD (chronic obstructive pulmonary disease) Home Medications ?Medication ?Instructions ?Recorded ?Last Taken ?Type ammonium lactate 12 % lotion 1 applic topical QD-BID PRN dry 02/06/18 Unknown History skin handicap placcard #1 ea 09/28/19 Unknown Rx ascorbate calcium (vitamin C) 500 500 mg PO DAILY Bone strength 05/03/20 04/20/24 History mg tablet coenzyme Q10 100 mg capsule (Co 100 mg PO DAILY supplement 05/03/20 04/20/24 History Q-10) cholecalciferol (vitamin D3) 100 100 mcg PO DAILY supplement 11/03/20 04/20/24 History mcg (4,000 unit) tablet spacer #1 ea 01/12/21 Unknown Rx nitroglycerin 0.4 mg sublingual 0.4 mg sublingual Q5-15M PRN chest 06/08/22 Unknown Rx tablet (Nitrostat) pain #25 tabs lancets #180 ea 07/18/23 Unknown Rx ipratropium bromide 42 mcg (0.06 2 spray intranasal TID-QID PRN 10/23/23 Unknown Rx %) nasal spray allergy symptoms #15 mL ipratropium bromide 0.02 % 2.5 ml inhalation Q6H PRN 12/06/23 Unknown Rx solution for inhalation shortness of breath or wheezing #150 mL hydralazine 100 mg tablet 100 mg PO BID hypertension #180 12/26/23 04/20/24 Rx tabs albuterol sulfate 90 mcg/actuation 2 inh inhalation Q4H PRN shortness 01/01/24 Unknown Rx aerosol inhaler (Ventolin HFA) of breath or wheezing #18 grams ferrous sulfate 325 mg (65 mg 325 mg PO Q OTHER DAY anemia #45 02/10/24 04/20/24 Rx iron) tablet tabs ropinirole 1 mg tablet 1 mg PO QHS restless leg #90 tabs 03/23/24 04/19/24 Rx budesonide-formoterol HFA 160 2 puff inhalation BID copd #3 ea 03/26/24 04/20/24 Rx mcg-4.5 mcg/actuation aerosol inhaler (Symbicort) loratadine 10 mg tablet 10 mg PO DAILY allergys #90 tabs 04/05/24 04/20/24 Rx ipratropium 0.5 mg-albuterol 3 mg 3 ml inhalation .COMPLEX SOB &/OR 04/20/24 Unknown History (2.5 mg base)/3 mL nebulization WHEEZING soln insulin glargine-yfgn 100 unit/mL 18 unit subcut DAILY dm2 05/01/24 Unknown History (3 mL) subcutaneous pen insulin lispro 100 unit/mL 10 unit subcut TIDAC dm2 05/01/24 Unknown History subcutaneous pen (Humalog KwikPen (U-100) Insulin) lactulose 20 gram/30 mL oral 20 g PO BID 05/01/24 Unknown History solution montelukast 10 mg tablet 10 mg PO QHS Respiratory #90 tabs 05/04/24 Unknown Rx pen needle, diabetic 31 gauge x #100 ea 05/06/24 Unknown Rx 1/4 (1st Tier Unifine Pentips) atorvastatin 40 mg tablet 40 mg PO QODAY cholesterol #45 tabs 05/13/24 Unknown Rx blood sugar diagnostic (OneTouch #180 ea 05/25/24 Unknown Rx Ultra Test strips) pantoprazole 40 mg tablet,delayed 40 mg PO DAILY reflux #90 tabs 05/25/24 Unknown Rx release finasteride 5 mg tablet 5 mg PO QDAY 06/01/24 Unknown History tamsulosin 0.4 mg capsule 0.4 mg PO QDAY 06/01/24 Unknown History apixaban 2.5 mg tablet (Eliquis) 2.5 mg PO BID atrial fibrillation 06/02/24 Unknown Rx #180 tabs furosemide 40 mg tablet 80 mg PO BID chf 06/16/24 Unknown History isosorbide mononitrate 30 mg 30 mg PO DAILY htn/chf 06/16/24 Unknown History tablet,extended release 24 hr Allergy/AdvReac Type Severity Reaction Status Date / Time cilostazol (From Pletal) Allergy Unknown Verified 06/25/24 11:19 felodipine Allergy Hives Verified 06/25/24 11:19 levofloxacin Allergy Hives Verified 06/25/24 11:19 Sulfa (Sulfonamide Allergy Unknown Verified 06/25/24 11:19 Antibiotics) Family History Father Diabetes Cancer Prostate cancer Mother Dementia Brother Parkinsons Brother Cancer Surgical History H/O vascular surgery History of surgical procedure History of transurethral resection of prostate History of endarterectomy (07/2018) History of left heart catheterization (03/2014) History of coronary artery stent placement (02/17/08) History of vascular surgery (08/2018) History of hernia repair H/O aortic aneurysm repair (11/1998) Social History household members: spouse 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 status: 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 Smoking Status: Former smoker quit date: 08/07/08 pack-years: 2 Tobacco: How many years used: 52 Electronic Cigarette Use: not used how long ago did patient quit smokin years ago alcohol intake: current alcohol intake frequency: holidays/special occasions only details: hx of alcohol abuse substance use type: does not use caffeine: No what type of physical activity do you participate in: other details: Nustep frequency: 5-6 times per week duration: 15-30 minutes/day seatbelt use: always do you feel safe at home: Yes EXAM Physical Exam Const Vital Signs: 06/25/24 11:18 06/25/24 11:52 06/25/24 12:18 Temperature 99 F 97.8 F Temperature Source Temporal Oral Pulse Rate 70 67 Respiratory Rate 18 15 Blood Pressure 132/82 H 131/72 H Blood Pressure Mean 98 91 Pulse Ox 94 97 95 Oxygen Delivery Method Room Air Room Air Room Air 06/25/24 13:11 06/25/24 14:00 Temperature 97.5 F L Temperature Source Oral Pulse Rate 72 80 Respiratory Rate 15 20 H Blood Pressure 167/71 H 141/70 H Blood Pressure Mean 103 93 Pulse Ox 98 96 Oxygen Delivery Method Room Air MDM MDM MDM Narrative Medical decision making narrative: HISTORY OF PRESENT ILLNESS: 89-year-old male history of ACS, status post stents, COPD, type 2 diabetes, hyperlipidemia, peripheral vascular disease, AAA, A-fib on Eliquis patient states acute onset of chest pain 04/15 in severity. Has since resolved. No shortness of breath associated. The patient denies recent surgery in the last 4 weeks or immobilization in the last 3 days, denies previous diagnosis of DVT or PE, hemoptysis, unilateral leg swelling or malignancy with treatment the last 6 months or palliative. No estrogen use noted. Patient denies sudden onset of pain, no tearing sensation, no migratory symptoms, no new numbness, weakness or loss of sensation. Patient denies family history or personal history of Connective tissue disorders (Marfan's Syndrome, Tresa Danlos etc) REVIEW OF SYSTEMS: Pertinent positives: Chest pain Pertinent negatives: Shortness of breath PHYSICAL EXAM: Nursing triage notes reviewed, Vital signs reviewed Constitutional: please see mdm HENT: MMM Eyes: Pupils equal round and reactive to light, Extraocular muscles intact Neck: No stridor, no JVD, full neck ROM Lungs: Clear to auscultation, No wheezing or rales. No increased work of breathing, no conversational dyspnea, no accessory muscle use, no nasal flaring. No respiratory distress noted Heart: Regular rate and rhythm, No murmurs, No rubs and No gallops, 2+ distal pulses (radial, femoral, posterior tibial) in all extremities Abdomen: Soft, there is no tenderness, rigidity, rebound or guarding, no obvious peritoneal signs, no palpable pulsatile abdominal masses, no auscultated abdominal bruit : No CVAT Extremities: No edema Neuro: No focal neurological deficits, cranial nerves II through XII intact, 5/5 strength in all extremities. Intact sensation to light touch in all extremities, 2+ reflexes bilateral patella tendons. Normal gait. No ataxia. Skin: No rash or lesions noted MEDICAL DECISION MAKING: Chief Complaint: Chest pain External records reviewed: Reviewed prior cardiology visit. Reviewed medications including Eliquis. Reviewed prior echocardiogram from January 2024 showed ejection fraction 55%. Last tress test was in 2021. Which was normal. Last heart catheterization 2013. Factors affecting care: As per HPI Social determinants of health: Elderly History obtained from others: Consults: Cardiology (Dr. Allen) MDM Narrative: The patient was initially hemodynamically stable, afebrile and nontoxic-appearing. Exam without focal cardiopulmonary abnormalities. No stigmata of VTE or dissection. I considered the following differential diagnosis: ACS, anemia, arrhythmia, myocardial ischemia, PE, dissection I obtained a broad lab and imaging workup to further elucidate the etiology of the patient's complaints. Patient took his daily aspirin at home. ALL IMAGES (IF OBTAINED) HAVE BEEN PERSONALLY REVIEWED AND INTERPRETED BY MYSELF. EKG with rate controlled atrial fibrillation, normal axis, normal intervals, occasional PVCs, no obvious STEMI High-sensitivity troponin is negative, no evidence of myocardial ischemia x 2 CBC without significant leukocytosis, anemia or thrombocytopenia BMP without significant electrolyte abnormalities, no signs of metabolic acidosis or endorgan hypoperfusion, noted baseline CKD I have personally reviewed the patient's chest x-ray. Chest x-ray is unremarkable for pulmonary edema, pneumothorax, pneumonia or focal cardiopulmonary abnormality. The synthesis of the patient's history, physical exam, labs images suggest no acute life-limiting etiology. Patient's history and physical exam were not consistent with PE or dissection. His labs, EKG, chest x-ray are not consistent with pneumothorax, ACS, anemia, arrhythmia or myocardial ischemia. The patient was high risk given his advanced age and multiple medical comorbidities, elevated heart score. I did discuss case with the process checker who recommended admitting the patient. I did discuss this with the patient he stated he felt more comfortable going home and following up as an outpatient. The patient and were alert and orient x 3 and had capacity to make her own medical decisions and chose to forego admission at this time and lieu of following up as an outpatient with her process checker at the next fillable appointment. The patient and/or family, caregivers express understanding. The patient and/or family, caregivers agrees with the plan. Shared decision making: I will have a discussion with the patient and or visitors regarding risk/benefits of further testing or admission. They will be made aware of of the risk/benefits inherent in this decision they will be given the opportunity to voice understanding. Total critical care time today provided was at least 0 minutes. This excludes separately billable procedures. Critical care time (if documented) is secondary to the patient having high probability of clinically significant/life threatening deterioration in the patient's condition which required my urgent intervention. Impression: 1. Chest pain 2. History of CKD 3. History of type 2 diabetes Dispo: Discharge home This note was generated with TipTap dictation software. It may contain incorrect words, spelling, and punctuation that were not noted in review of the chart prior to signing. Lab Data Labs: Laboratory Results - last 24 hr 06/25/24 06/25/24 11:25 13:36 WBC 7.1 RBC 4.25 L Hgb 13.2 Hct 39.7 L MCV 93.4 MCH 31.1 MCHC 33.2 RDW Std Deviation 52.0 H RDW Coeff of Justin 16.8 H Plt Count 306 MPV 9.8 Immature Gran % (Auto) 0.600 Neut % (Auto) 65.4 Lymph % (Auto) 23.0 [place] % (Auto) 9.0 Eos % (Auto) 1.3 Baso % (Auto) 0.7 Absolute Neuts (auto) 4.7 Absolute Lymphs (auto) 1.64 Nucleated RBC % 0 Sodium 138 Potassium 3.5 Chloride 103 Carbon Dioxide 24.0 Anion Gap 11 BUN 43 H Creatinine 2.25 H Estim Creat Clear Calc 24.97 Est GFR (MDRD) Af Amer 36 L Est GFR (MDRD) Non-Af 30 L BUN/Creatinine Ratio 19.1 Glucose 179 H Calcium 9.9 Troponin I High Sens 32 27 Radiography Diagnostic Testing: Clinical Impression(s) from Imaging Studies Chest X-Ray 06/25/24 11:26 IMPRESSION: Stable mild increased markings at the lung bases suggestive of mild scarring. Electronically Signed: Yemi Clifton MD at 12:12 EDT , Discharge Plan Triage Chief Complaint: Chest Pain ED Provider: Enzo Chu Dx/Rx/DC Orders Prescriptions: No Action ammonium lactate 12 % lotion 1 applic TOPICAL QD-BID PRN (Reason: dry skin ) (DME) handicap placcard Qty: 1 0RF Rx Instructions: Lifetime: debility coenzyme Q10 [Co Q-10] 100 mg capsule 100 mg PO DAILY ascorbate calcium (vitamin C) 500 mg tablet 500 mg PO DAILY cholecalciferol (vitamin D3) 100 mcg (4,000 unit) tablet 100 mcg PO DAILY (DME) spacer See Rx Instructions .ROUTE .MEDSUPPLY Qty: 1 0RF Rx Instructions: As directed ipratropium bromide 42 mcg (0.06 %) spray,non-aerosol 2 spray INTRANASAL TID-QID PRN (Reason: allergy symptoms) Qty: 15 6RF Rx Instructions: nasal drip - administer into each nostril; wait 30 seconds between sprays (DME) lancets Misc See Rx Instructions .Route Qty: 180 1RF Rx Instructions: twice daily hydralazine 100 mg tablet 100 mg PO BID Qty: 180 3RF ropinirole 1 mg tablet 1 mg PO QHS Qty: 90 3RF Rx Instructions: administer 1-3 hours before bedtime albuterol sulfate [Ventolin HFA] 90 mcg/actuation HFA aerosol inhaler 2 inh INHALATION Q4H PRN (Reason: shortness of breath or wheezing) Qty: 18 6RF insulin glargine-yfgn 100 unit/mL (3 mL) insulin pen 18 unit subcut DAILY Patient Comments: pt states he takes it in pm insulin lispro [Humalog KwikPen Insulin] 100 unit/mL insulin pen 10 unit subcut TIDAC Rx Instructions: Hold if glucose less than 130 mg/dl lactulose 20 gram/30 mL solution 20 g PO BID Patient Comments: pt states he takes it sometimes daily Rx Instructions: 30 ml once or twice daily for constipation tamsulosin 0.4 mg capsule 0.4 mg PO QDAY finasteride 5 mg tablet 5 mg PO QDAY isosorbide mononitrate 30 mg tablet extended release 24 hr 30 mg PO DAILY ipratropium-albuterol 0.5 mg-3 mg(2.5 mg base)/3 mL solution for nebulization 3 ml inhalation .COMPLEX Rx Instructions: 3 mL inhaled Q4H WA .RT; furosemide 40 mg tablet 80 mg PO BID Rx Instructions: Hold for NARENDRA nitroglycerin [Nitrostat] 0.4 mg tablet, sublingual 0.4 mg SUBLINGUAL Q5-15M PRN (Reason: chest pain) Qty: 25 2RF ipratropium bromide 0.02 % solution 2.5 ml inhalation Q6H PRN (Reason: shortness of breath or wheezing) Qty: 150 11RF ferrous sulfate 325 mg (65 mg iron) tablet 325 mg PO Q OTHER DAY Qty: 45 1RF budesonide-formoterol [Symbicort] 160-4.5 mcg/actuation HFA aerosol inhaler 2 puff inhalation BID Qty: 3 3RF Rx Instructions: administer with spacer, rinse mouth after each use loratadine 10 mg tablet 10 mg PO DAILY Qty: 90 0RF montelukast 10 mg tablet 10 mg PO QHS Qty: 90 3RF (DME) pen needle, diabetic [1st Tier Unifine Pentips] 31 gauge x 1/4 needle See Rx Instructions .Route Qty: 100 1RF Rx Instructions: 3-4 times daily atorvastatin 40 mg tablet 40 mg PO QODAY Qty: 45 3RF pantoprazole 40 mg tablet,delayed release (DR/EC) 40 mg PO DAILY Qty: 90 1RF (DME) OneTouch Ultra Test Strip See Rx Instructions .Route Qty: 180 1RF Rx Instructions: Check three to four times a day. Eliquis 2.5 mg tablet 2.5 mg PO BID Qty: 180 3RF Primary Care Provider: Carolynn Whitman Referrals: Carolynn Whitman MD [Primary Care Provider] - Print Language: Citizen Of [place]
[2024-06-25 12:50] LABS: Anion Gap 11 (5-15); BUN 43 mg/dL (7-18); BUN/Creat Ratio 19.1 RATIO (10-20); Calcium,Total 9.9 mg/dL (8.5-10.1); Chloride 103 mmol/L (98-107); Creatinine, Serum 2.25 mg/dL (0.70-1.30); EST Glomerular Filtration Rate 30 mL/min (>60); Est Glom Filt Rate - Afr Amer 36 mL/min (>60); Estimated Creatinine Clearance 24.97 ml/min; Glucose 179 mg/dL (74-106); Potassium 3.5 mmol/L (3.5-5.1); Sodium Level 138 mmol/L (136-145); Troponin-I HS (w/2H Reflex) 32 pg/mL (3.0-78.0)
[2024-06-25 13:30] LABS: Reflex Troponin-HS? (from REC) Y
[2024-06-25 14:10] LABS: Troponin-I HS 27 pg/mL (3.0-78.0)
== END 2024-06-25 15:53 | disposition home or self-care (01) ==
PROVIDERS: Emergency Provider Emergency Medicine; PCP Internal Medicine; Visit Provider Emergency Medicine
DX: R07.9 Chest pain, unspecified (principal); I13.0 Hypertensive heart and chronic kidney disease with heart failure and stage 1 through stage 4 chronic kidney disease, or unspecified chronic kidney disease; I50.9 Heart failure, unspecified; J44.9 Chronic obstructive pulmonary disease, unspecified; I48.91 Unspecified atrial fibrillation; E11.51 Type 2 diabetes mellitus with diabetic peripheral angiopathy without gangrene; E11.22 Type 2 diabetes mellitus with diabetic chronic kidney disease; N18.9 Chronic kidney disease, unspecified; I25.10 Atherosclerotic heart disease of native coronary artery without angina pectoris; G47.33 Obstructive sleep apnea (adult) (pediatric); I25.2 Old myocardial infarction; Z95.5 Presence of coronary angioplasty implant and graft; Z87.891 Personal history of nicotine dependence
CPT/HCPCS: 71045; 80048; 84484; 85025; 93005; 99284; A4216

== ENCOUNTER 2024-06-28 11:29 | Observation (INO) | payer MEDICARE, SELFPAY ==
[2024-06-28] VITALS (9 sets, daily range): BP systolic 126–158; BP diastolic 63–78; PULSE 58–74; RESP 14–22; TEMP 36.1–36.8; O2SAT 95–100; BMI 29.5; BMI 36.8
--- NOTE | 2024-06-28 11:45 | EKG12_ITS ---
Test Reason : CP Blood Pressure : / mmHG Vent. Rate : 072 BPM Atrial Rate : 000 BPM P-R Int : 000 ms QRS Dur : 096 ms QT Int : 428 ms P-R-T Axes : 000 026 -86 degrees QTc Int : 468 ms Atrial fibrillation Nonspecific ST and T wave abnormality Prolonged QT Abnormal ECG Confirmed by Bryant Tsang ([id number]), videotape editor LASHANDA GARNETT ([id number]) on 06/30/2024 10:47:17 AM Referred By: Confirmed By:Bryant Tsang
[2024-06-28 11:52] LABS: Absolute Lymphocyte Count 1.38 X10^3/uL (0.83-4.51); Absolute Neutrophil Count 5.5 X10^3/uL (2.0-7.7); Basophil# 0.04 X10^3/uL; Basophil% 0.5 % (0-1); Eosinophil# 0.16 X10^3/uL; Hematocrit 38.4 % (40-54); Hemoglobin 13.7 g/dL (13.0-16.5); Lymphocyte # 1.38 X10^3/ul (0.83-4.51); Lymphocyte % 17.6 % (19-41); Mean Corpuscular Hgb 34.2 pg (27.0-32.0); Mean Corpuscular Volume 95.8 fL (80-94); Mean Platelet Vol. 10.1 fl (6.2-12.0); Monocyte# 0.69 X10^3/uL; Monocyte% 8.8 % (0-10); NRBC Flagged by Analyzer 0 % (0-5); Neutrophil # 5.54 X10^3/uL (2.7-7.7); Neutrophil % 70.6 % (47-70); Platelet Count 285 K/mm3 (150-450); RBC Distribution Width CV 17.1 % (11.6-14.6); RBC Distribution Width SD 52.4 fl (35.1-43.9); Red Blood Count 4.01 M/mm3 (4.6-6.2); White Blood Count 7.9 K/mm3 (4.4-11.0)
--- NOTE | 2024-06-28 12:17 | RAD_ITS ---
STUDY: X-RAY CHEST REASON FOR EXAM: Male, 89 years old. Substernal chest pain. TECHNIQUE: Single AP portable view of the chest. COMPARISON: 06/25/2024 FINDINGS: EKG leads overlie the chest Chronic interstitial changes in both lung lynn without a superimposed acute pulmonary process. There is no demonstrated pleural abnormality. Normal size heart. Normal mediastinum and frank. Normal visualized pulmonary arteries. There is atherosclerotic calcification of the aortic arch with tortuosity. There are diffuse degenerative changes of the visualized thoracic spine. There is degenerative osteoarthritis of the bilateral shoulders. Surgical hardware in the right clavicle free of complication There is no demonstrated abnormality of the visualized soft tissue structures of the upper abdomen. RAD/Chest 1 View (Portable) IMPRESSION: Chronic interstitial changes, no superimposed acute pulmonary process Electronically Signed: Cristopher Quezada MD at 12:31 EDT ,
--- NOTE | 2024-06-28 12:17 | ED.VIS.CHEST ---
HPI History of Present Illness Chief Complaint: Chest Pain Informant: patient and spouse/S.O. Onset/Context/Timing Onset: Today Activity at onset: sudden Timing: Continuous Quality: Positive for Aching and Pain Location: Substernal Current Severity: Gone Maximum Severity: Moderate Worsened By: Nothing Relieved By: NTG Associated Symptoms: Negative for Nausea, Vomiting, Diaphoresis, Dyspnea, Cough, Fever, Lightheadedness, Acid Reflux or Palpitations Narrative Narrative: 89-year-old male history of CAD, 9 cardiac stents. No prior bypass. Also history of anemia, diabetes, CKD and A-fib. He is on Eliquis. States this morning around 930 morning and midsternal chest pain rating to both arms. Called the squad. Took initial sublingual nitroglycerin without relief cyclin basically resolved his pain. States he has been getting chest pain once twice a week. He is a outpatient stress test scheduled in about 8 days. He was seen in the emergency department for similar event on . Recent Illness/Hospitalization: No CVD Risk Factors: Positive for Hypertension and Diabetes PE Risk Factors: Negative for Recent Travel/Surgery, Recent Immobilization, Prior DVT or PE, Cancer or OCP + Smoking + >/=35 TAD Risk Factors: Negative for Marfan's Syndrome [facility] Medical History Edema Colonic mass Controlled type 2 diabetes mellitus Acute respiratory insufficiency Chronic anemia Bilateral edema of lower extremity Failure of outpatient treatment Urinary tract infection Acute on chronic heart failure with normal ejection fraction Urinary retention Chronic kidney disease Frequent hospital admissions Fatigue Colonic mass Pleural effusion (HFpEF) heart failure with preserved ejection fraction Pneumonia Colon polyp Lightheadedness Chronic constipation Anemia Constipation Obstructive sleep apnea Coronary artery disease Gastroesophageal reflux disease Allergic rhinitis Hyperlipidemia Urinary retention Debility Wears hearing aid Wears dentures Wears glasses Cancer History of steroid therapy Ambulates with cane Walker as ambulation aid Arthritis Kidney stone History of renal disease Easy bruising Back pain Injury of back History of hiatal hernia Former smoker BiPAP (biphasic positive airway pressure) dependence Sleep apnea Asthma Shortness of breath on exertion Hoarseness Chronic cough Leg cramps History of pain when walking History of edema History of stress test History of heart attack History of irregular heartbeat Acute cystitis with hematuria Recurrent urinary tract infection ALMEIDA (dyspnea on exertion) Chest pain Right leg swelling Patellar bursitis of right knee Asthma-COPD overlap syndrome Abdominal aortic aneurysm (AAA) Peripheral vascular disease of extremity with claudication Rectus sheath hematoma Pre-syncope Essential (primary) hypertension Restless legs syndrome MARIXA (obstructive sleep apnea) Daytime hypersomnia Somatic dysfunction of pelvic region DDD (degenerative disc disease), lumbar Overweight Seasonal allergies Carotid bruit Atherosclerotic heart disease of [place] coronary artery without angina pectoris PVD (peripheral vascular disease) Dyslipidemia DM2 (diabetes mellitus, type 2) COPD (chronic obstructive pulmonary disease) Home Medications ?Medication ?Instructions ?Recorded ?Last Taken ?Type ammonium lactate 12 % lotion 1 applic topical QD-BID PRN dry 02/06/18 Unknown History skin handicap placcard #1 ea 09/28/19 Unknown Rx ascorbate calcium (vitamin C) 500 500 mg PO DAILY Bone strength 05/03/20 06/28/24 History mg tablet coenzyme Q10 100 mg capsule (Co 100 mg PO DAILY supplement 05/03/20 06/28/24 History Q-10) cholecalciferol (vitamin D3) 100 100 mcg PO DAILY supplement 11/03/20 06/28/24 History mcg (4,000 unit) tablet spacer #1 ea 01/12/21 Unknown Rx nitroglycerin 0.4 mg sublingual 0.4 mg sublingual Q5-15M PRN chest 06/08/22 06/28/24 Rx tablet (Nitrostat) pain #25 tabs lancets #180 ea 07/18/23 Unknown Rx ipratropium bromide 42 mcg (0.06 2 spray intranasal TID-QID PRN 10/23/23 06/28/24 Rx %) nasal spray allergy symptoms #15 mL ipratropium bromide 0.02 % 2.5 ml inhalation Q6H PRN 12/06/23 06/28/24 Rx solution for inhalation shortness of breath or wheezing #150 mL hydralazine 100 mg tablet 100 mg PO BID hypertension #180 12/26/23 06/28/24 Rx tabs albuterol sulfate 90 mcg/actuation 2 inh inhalation Q4H PRN shortness 01/01/24 Unknown Rx aerosol inhaler (Ventolin HFA) of breath or wheezing #18 grams ferrous sulfate 325 mg (65 mg 325 mg PO Q OTHER DAY anemia #45 02/10/24 06/28/24 Rx iron) tablet tabs ropinirole 1 mg tablet 1 mg PO QHS restless leg #90 tabs 03/23/24 06/27/24 Rx budesonide-formoterol HFA 160 2 puff inhalation BID copd #3 ea 03/26/24 06/27/24 Rx mcg-4.5 mcg/actuation aerosol inhaler (Symbicort) loratadine 10 mg tablet 10 mg PO DAILY allergys #90 tabs 04/05/24 06/28/24 Rx ipratropium 0.5 mg-albuterol 3 mg 3 ml inhalation .COMPLEX SOB &/OR 04/20/24 06/28/24 History (2.5 mg base)/3 mL nebulization WHEEZING soln insulin glargine-yfgn 100 unit/mL 18 unit subcut DAILY dm2 05/01/24 06/27/24 History (3 mL) subcutaneous pen insulin lispro 100 unit/mL 10 unit subcut TIDAC dm2 05/01/24 06/28/24 History subcutaneous pen (Humalog KwikPen (U-100) Insulin) lactulose 20 gram/30 mL oral 20 g PO BID PRN constipation 05/01/24 Unknown History solution montelukast 10 mg tablet 10 mg PO QHS Respiratory #90 tabs 05/04/24 06/27/24 Rx pen needle, diabetic 31 gauge x #100 ea 05/06/24 Unknown Rx 1/4 (1st Tier Unifine Pentips) atorvastatin 40 mg tablet 40 mg PO QODAY cholesterol #45 tabs 05/13/24 06/27/24 Rx blood sugar diagnostic (OneTouch #180 ea 05/25/24 Unknown Rx Ultra Test strips) pantoprazole 40 mg tablet,delayed 40 mg PO DAILY reflux #90 tabs 05/25/24 06/28/24 Rx release tamsulosin 0.4 mg capsule 0.4 mg PO QDAY 06/01/24 06/27/24 History apixaban 2.5 mg tablet (Eliquis) 2.5 mg PO BID atrial fibrillation 06/02/24 06/28/24 Rx #180 tabs furosemide 40 mg tablet 60 mg PO BID chf 06/16/24 06/28/24 History isosorbide mononitrate 30 mg 30 mg PO DAILY htn/chf 06/16/24 Unknown History tablet,extended release 24 hr aspirin 81 mg tablet,delayed 81 mg PO DAILY 06/28/24 06/28/24 History release (Adult Aspirin Regimen) Allergy/AdvReac Type Severity Reaction Status Date / Time cilostazol (From Pletal) Allergy Unknown Verified 06/28/24 11:39 felodipine Allergy Hives Verified 06/28/24 11:39 levofloxacin Allergy Hives Verified 06/28/24 11:39 Sulfa (Sulfonamide Allergy Unknown Verified 06/28/24 11:39 Antibiotics) Family History Father Diabetes Cancer Prostate cancer Mother Dementia Brother Parkinsons Brother Cancer Surgical History H/O vascular surgery History of surgical procedure History of transurethral resection of prostate History of endarterectomy (07/2018) History of left heart catheterization (03/2014) History of coronary artery stent placement (02/17/08) History of vascular surgery (08/2018) History of hernia repair H/O aortic aneurysm repair (11/1998) Social History household members: spouse 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 status: retired current occupation: [employer] Smoking Status: Former smoker quit date: 08/07/08 pack-years: 2 Tobacco: How many years used: 52 Electronic Cigarette Use: not used how long ago did patient quit smokin years ago alcohol intake: current alcohol intake frequency: holidays/special occasions only details: hx of alcohol abuse substance use type: does not use caffeine: No what type of physical activity do you participate in: other details: Nustep frequency: 5-6 times per week duration: 15-30 minutes/day seatbelt use: always do you feel safe at home: Yes ROS ROS ED ROS Narrative Chest pain today. Constitutional Constitutional ED: Denies chills or fever(s) Eyes Eyes: Reports none ENT ENT ED: Denies ear pain Cardiovascular Cardiovascular: Reports as per HPI and chest pain Respiratory/Chest Respiratory/Chest: Denies cough or dyspnea Gastrointestinal Gastrointestinal: Denies abdominal pain Genitourinary Genitourinary ED: Denies dysuria or hematuria Musculoskeletal Musculoskeletal: Denies arthralgias Integumentary Denies abscess Neurologic Neurologic: Denies headache(s) Psychiatric Psychiatric: Denies anxiety Endocrine Endocrinology: Denies cold intolerance Hematologic/Lymphatic Hematologic/Lymphatic: Denies easy bleeding EXAM Physical Exam Narrative Exam Narrative: Well-appearing 89-year-old male sitting upright in bed. Vital signs are stable afebrile. Pulse ox 99% on room air no signs of hypoxia. Currently pain-free. at bedside. H EENT exam unremarkable. Lungs clear to auscultation. Heart A-fib rate about 70 no murmur. Chest wall nontender. Ribs nontender. Abdomen soft nontender. Moving all 4 extremities. Equal symmetrical radial pulses. Calves are nontender without edema. Neurologically is awake and alert with no focal motor deficits. Const Vital Signs: 06/28/24 11:33 06/28/24 11:33 06/28/24 11:37 Temperature 98.1 F Temperature Source Oral Pulse Rate 66 66 Respiratory Rate 16 19 H Respiratory Effort Normal Non-Labored Blood Pressure 156/66 H 156/66 H Blood Pressure Mean 96 96 Pulse Ox 98 99 Oxygen Delivery Method Room Air Room Air 06/28/24 11:45 06/28/24 12:29 06/28/24 13:00 Temperature Temperature Source Pulse Rate 62 66 Respiratory Rate 18 Respiratory Effort Blood Pressure 132/63 H 136/63 H Blood Pressure Mean 86 87 Pulse Ox 98 Oxygen Delivery Method Room Air Positive well nourished and well developed; Negative for cachectic, contractures or unkempt General Appearance ED: well developed and NAD; Negative for unkempt, cachectic, contractures or pallor Nutritional Appearance: Negative for cachectic HEENT Reports moist mucous membranes normocephalic and atraumatic; Negative for trauma or tenderness Eyes PERRL and EOMs intact bilaterally General Eye ED: Negative for pale conjunctiva or scleral icterus Neck no lymphadenopathy, supple and no JVD General: Negative for tenderness Chest Wall inspection of chest normal and palpation of chest normal Chest: Negative for tenderness Resp normal respiratory effort and clear to auscultation bilaterally Effort and Inspection: Negative for respiratory distress Auscultation: Negative for rales, rhonchi, wheezes or diminished lung sounds Cardio regular rate and no murmurs; Negative for regular rhythm Rate: other Other Details: A-fib rate in the 70s. Rhythm: abnormal rhythm irregularly irregular GI normal to inspection, nondistended, normoactive bowel sounds, soft to palpation, non-tender, non-distended and no masses Back/Spine no CVA tenderness and no thoracic nor lumbar tenderness Extremity normal to inspection General Extremety ED: Negative for edema or tenderness General Extremity: Negative for edema Neuro oriented x3 and CN's II-XII intact bilaterally Sensorium / Orientation: awake, alert, oriented to person, oriented to place and oriented to time; Negative for confused or lethargic Motor Exam: strength 5/5 throughout Psych mental status grossly normal Appearance: Negative for unkempt Attitude: No agitated Mood & Affect: Negative for depressed, anxious or tearful Skin no rashes or lesions noted and no wounds General Skin Exam: Negative for jaundice or pallor Rashes: No rashes noted Trauma: Negative for abrasion, laceration or puncture Heart Score History: Moderately Suspicious ECG: Normal Age: >/= 65 years Risk Factors: >/= 3 Risk Factors or History of CAD Troponin: </= Normal Limit Score: 5 MDM MDM MDM Narrative Medical decision making narrative: 89-year-old male with 9 prior cardiac stents with recurrent chest pain. Sounds cardiac in etiology. It was seen on for the same. He is on Eliquis. Has a history of A-fib. He has an outpatient stress test scheduled about 8 to 9 days from now. I plan on admitting him to the hospital for further cardiac evaluation. Repeat exam patient doing well at 1:30 PM. He is pain-free. We discussed his test results. I have already spoken to the hospitalist he will be admitted for further evaluation. Patient is not a great candidate for a repeat heart cath due to his kidney function they will probably start with a stress test. History & Record Review Discussion w/independent historian: Patient and Family Additional record(s) reviewed:: Prior inpatient record, Prior outpatient record, Prior ED visit, Prior labs and No prior records Lab Data Attestation: I reviewed the patient's lab results. Lab results narrative: CBC shows a white count 7.9 H&H 13 and 38. Platelets 285. Electrolytes show gap 8. BUN and creatinine are 45 and 2 which is his baseline chronic renal insufficiency. Glucose 182. Troponin 32. Labs: Laboratory Results - last 24 hr 06/28/24 11:20 WBC 7.9 RBC 4.01 L Hgb 13.7 Hct 38.4 L MCV 95.8 H MCH 34.2 H MCHC 35.7 D RDW Std Deviation 52.4 H RDW Coeff of Justin 17.1 H Plt Count 285 MPV 10.1 Immature Gran % (Auto) 0.500 Neut % (Auto) 70.6 H Lymph % (Auto) 17.6 L [place] % (Auto) 8.8 Eos % (Auto) 2.0 Baso % (Auto) 0.5 Absolute Neuts (auto) 5.5 Absolute Lymphs (auto) 1.38 Nucleated RBC % 0 Sodium 138 Potassium 3.6 Chloride 102 Carbon Dioxide 28.0 Anion Gap 8 BUN 45 H Creatinine 2.08 H Estim Creat Clear Calc 27.00 Est GFR (MDRD) Af Amer 39 L Est GFR (MDRD) Non-Af 32 L BUN/Creatinine Ratio 21.6 H Glucose 182 H Calcium 9.5 Troponin I High Sens 32 Radiography Chest X-Ray - ED: 1 View, Read by ED Physician, Read by Radiologist, Normal, Heart, Mediastinum, Bony Structures, No Acute Disease and Chronic Changes Diagnostic Testing: Clinical Impression(s) from Imaging Studies Chest X-Ray 06/28/24 12:17 IMPRESSION: Chronic interstitial changes, no superimposed acute pulmonary process Electronically Signed: Cristopher Quezada MD at 12:31 EDT Reading Location ID and State: [address] [place] [address] , Service support , Chest x-ray, portable, single view shows chronic changes no acute process. Normal cardiac silhouette. Normal lung lynn. Rhythm Strip Rhythm Strip: A-fib Rate: 72 Ectopy: None EKG Initial EKG: Attestation: I personally reviewed and interpreted this EKG as follows: Interpretation: No Acute Injury Pattern and Atrial Fibrillation Comments: A-fib rate of 72 no acute signs of [place] or ischemia. Discharge Plan Dx/Rx/DC Orders Clinical Impression: Chest pain, Chronic a-fib, Chronic anticoagulation, History of CAD (coronary artery disease), Hx of heart artery stent, Chronic kidney disease Disposition Disposition: Acute Care [facility]
[2024-06-28 13:24] LABS: Anion Gap 8 (5-15); BUN 45 mg/dL (7-18); BUN/Creat Ratio 21.6 RATIO (10-20); Calcium,Total 9.5 mg/dL (8.5-10.1); Chloride 102 mmol/L (98-107); Creatinine, Serum 2.08 mg/dL (0.70-1.30); EST Glomerular Filtration Rate 32 mL/min (>60); Est Glom Filt Rate - Afr Amer 39 mL/min (>60); Glucose 182 mg/dL (74-106); Mean Corp Hgb Conc 35.7 g/dL (32-36); Potassium 3.6 mmol/L (3.5-5.1); Sodium Level 138 mmol/L (136-145); Troponin-I HS (w/2H Reflex) 32 pg/mL (3.0-78.0)
[2024-06-28 13:46] LABS: Reflex Troponin-HS? (from REC) Y
[2024-06-28 14:19] LABS: Troponin-I HS 32 pg/mL (3.0-78.0)
--- NOTE | 2024-06-28 15:26 | PCM.HP.STD ---
HPI - General General Date of Admission: 06/28/24 HPI Narrative DESIREE ROSAS, is a 89 M who presents to the hospital with substernal chest pain that would radiate to bilateral arms and jaw. He had a pain like this a couple of days ago and presented to the ER and was discharged home. He does have a significant CAD history with 9 previous stents with the most recent being about 16 years ago. He is on maximal therapy with aspirin, Lipitor, Eliquis for his A-fib. This episode of chest pain occurred today, he took some nitro's and presented to the ER. In the ER EKG was nonischemic and initial troponin was normal. He does have an outpatient stress test scheduled for 8 days and given his chest pain occurring intermittently since it was discussed to admit for observation and stress test in the morning [facility] Medical History Edema Colonic mass Controlled type 2 diabetes mellitus Acute respiratory insufficiency Chronic anemia Bilateral edema of lower extremity Failure of outpatient treatment Urinary tract infection Acute on chronic heart failure with normal ejection fraction Urinary retention Chronic kidney disease Frequent hospital admissions Fatigue Colonic mass Pleural effusion (HFpEF) heart failure with preserved ejection fraction Pneumonia Colon polyp Lightheadedness Chronic constipation Anemia Constipation Obstructive sleep apnea Coronary artery disease Gastroesophageal reflux disease Allergic rhinitis Hyperlipidemia Urinary retention Debility Wears hearing aid Wears dentures Wears glasses Cancer History of steroid therapy Ambulates with cane Walker as ambulation aid Arthritis Kidney stone History of renal disease Easy bruising Back pain Injury of back History of hiatal hernia Former smoker BiPAP (biphasic positive airway pressure) dependence Sleep apnea Asthma Shortness of breath on exertion Hoarseness Chronic cough Leg cramps History of pain when walking History of edema History of stress test History of heart attack History of irregular heartbeat Acute cystitis with hematuria Recurrent urinary tract infection ALMEIDA (dyspnea on exertion) Chest pain Right leg swelling Patellar bursitis of right knee Asthma-COPD overlap syndrome Abdominal aortic aneurysm (AAA) Peripheral vascular disease of extremity with claudication Rectus sheath hematoma Pre-syncope Essential (primary) hypertension Restless legs syndrome MARIXA (obstructive sleep apnea) Daytime hypersomnia Somatic dysfunction of pelvic region DDD (degenerative disc disease), lumbar Overweight Seasonal allergies Carotid bruit Atherosclerotic heart disease of [place] coronary artery without angina pectoris PVD (peripheral vascular disease) Dyslipidemia DM2 (diabetes mellitus, type 2) COPD (chronic obstructive pulmonary disease) Home Medications ?Medication ?Instructions ?Recorded ?Last Taken ?Type ammonium lactate 12 % lotion 1 applic topical QD-BID PRN dry 02/06/18 Unknown History skin handicap placcard #1 ea 09/28/19 Unknown Rx ascorbate calcium (vitamin C) 500 500 mg PO DAILY Bone strength 05/03/20 06/28/24 History mg tablet coenzyme Q10 100 mg capsule (Co 100 mg PO DAILY supplement 05/03/20 06/28/24 History Q-10) cholecalciferol (vitamin D3) 100 100 mcg PO DAILY supplement 11/03/20 06/28/24 History mcg (4,000 unit) tablet spacer #1 ea 01/12/21 Unknown Rx nitroglycerin 0.4 mg sublingual 0.4 mg sublingual Q5-15M PRN chest 06/08/22 06/28/24 Rx tablet (Nitrostat) pain #25 tabs lancets #180 ea 07/18/23 Unknown Rx ipratropium bromide 42 mcg (0.06 2 spray intranasal TID-QID PRN 10/23/23 06/28/24 Rx %) nasal spray allergy symptoms #15 mL ipratropium bromide 0.02 % 2.5 ml inhalation Q6H PRN 12/06/23 06/28/24 Rx solution for inhalation shortness of breath or wheezing #150 mL hydralazine 100 mg tablet 100 mg PO BID hypertension #180 12/26/23 06/28/24 Rx tabs albuterol sulfate 90 mcg/actuation 2 inh inhalation Q4H PRN shortness 01/01/24 Unknown Rx aerosol inhaler (Ventolin HFA) of breath or wheezing #18 grams ferrous sulfate 325 mg (65 mg 325 mg PO Q OTHER DAY anemia #45 02/10/24 06/28/24 Rx iron) tablet tabs ropinirole 1 mg tablet 1 mg PO QHS restless leg #90 tabs 03/23/24 06/27/24 Rx budesonide-formoterol HFA 160 2 puff inhalation BID copd #3 ea 03/26/24 06/27/24 Rx mcg-4.5 mcg/actuation aerosol inhaler (Symbicort) loratadine 10 mg tablet 10 mg PO DAILY allergys #90 tabs 04/05/24 06/28/24 Rx ipratropium 0.5 mg-albuterol 3 mg 3 ml inhalation .COMPLEX SOB &/OR 04/20/24 06/28/24 History (2.5 mg base)/3 mL nebulization WHEEZING soln insulin glargine-yfgn 100 unit/mL 18 unit subcut DAILY dm2 05/01/24 06/27/24 History (3 mL) subcutaneous pen insulin lispro 100 unit/mL 10 unit subcut TIDAC dm2 05/01/24 06/28/24 History subcutaneous pen (Humalog KwikPen (U-100) Insulin) lactulose 20 gram/30 mL oral 20 g PO BID PRN constipation 05/01/24 Unknown History solution montelukast 10 mg tablet 10 mg PO QHS Respiratory #90 tabs 05/04/24 06/27/24 Rx pen needle, diabetic 31 gauge x #100 ea 05/06/24 Unknown Rx 1/4 (1st Tier Unifine Pentips) atorvastatin 40 mg tablet 40 mg PO QODAY cholesterol #45 tabs 05/13/24 06/27/24 Rx blood sugar diagnostic (OneTouch #180 ea 05/25/24 Unknown Rx Ultra Test strips) pantoprazole 40 mg tablet,delayed 40 mg PO DAILY reflux #90 tabs 05/25/24 06/28/24 Rx release tamsulosin 0.4 mg capsule 0.4 mg PO QDAY 06/01/24 06/27/24 History apixaban 2.5 mg tablet (Eliquis) 2.5 mg PO BID atrial fibrillation 06/02/24 06/28/24 Rx #180 tabs furosemide 40 mg tablet 60 mg PO BID chf 06/16/24 06/28/24 History isosorbide mononitrate 30 mg 30 mg PO DAILY htn/chf 06/16/24 Unknown History tablet,extended release 24 hr aspirin 81 mg tablet,delayed 81 mg PO DAILY 06/28/24 06/28/24 History release (Adult Aspirin Regimen) Allergy/AdvReac Type Severity Reaction Status Date / Time cilostazol (From Pletal) Allergy Unknown Verified 06/28/24 11:39 felodipine Allergy Hives Verified 06/28/24 11:39 levofloxacin Allergy Hives Verified 06/28/24 11:39 Sulfa (Sulfonamide Allergy Unknown Verified 06/28/24 11:39 Antibiotics) Family History Father Diabetes Cancer Prostate cancer Mother Dementia Brother Parkinsons Brother Cancer Surgical History H/O vascular surgery History of surgical procedure History of transurethral resection of prostate History of endarterectomy (07/2018) History of left heart catheterization (03/2014) History of coronary artery stent placement (02/17/08) History of vascular surgery (08/2018) History of hernia repair H/O aortic aneurysm repair (11/1998) Social History household members: spouse 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 status: retired current occupation: [employer] department Smoking Status: Former smoker quit date: 08/07/08 pack-years: 2 Tobacco: How many years used: 52 Electronic Cigarette Use: not used how long ago did patient quit smokin years ago alcohol intake: current alcohol intake frequency: holidays/special occasions only details: hx of alcohol abuse substance use type: does not use caffeine: No what type of physical activity do you participate in: other details: Nustep frequency: 5-6 times per week duration: 15-30 minutes/day seatbelt use: always do you feel safe at home: Yes ROS Constitutional Constitutional: Denies chills, fatigue, fever(s) or malaise Eyes Eyes: Denies blurry vision ENT HEENT: Denies headache(s) or nasal discharge Cardiovascular Cardiovascular: Reports chest pain; Denies dyspnea on exertion or syncope Respiratory/Chest Respiratory/Chest: Denies cough, shortness of breath at rest or shortness of breath with exertion Gastrointestinal Gastrointestinal: Denies constipation, diarrhea, nausea or vomiting Genitourinary Genitourinary: Denies dysuria Neurologic Neurologic: Denies focal weakness, numbness or tremor(s) Psychiatric Psychiatric: Denies anxiety or depression Vital Signs Vital Signs Vital Signs: 06/28/24 11:33 06/28/24 11:33 06/28/24 11:37 Temperature 98.1 F Temperature Source Oral Pulse Rate 66 66 Respiratory Rate 16 19 H Respiratory Effort Normal Non-Labored Blood Pressure 156/66 H 156/66 H Blood Pressure Mean 96 96 Pulse Ox 98 99 Oxygen Delivery Method Room Air Room Air 06/28/24 11:45 06/28/24 12:29 06/28/24 13:00 Temperature Temperature Source Pulse Rate 62 66 Respiratory Rate 18 Respiratory Effort Blood Pressure 132/63 H 136/63 H Blood Pressure Mean 86 87 Pulse Ox 98 Oxygen Delivery Method Room Air 06/28/24 14:00 06/28/24 14:54 Temperature 97 F L Temperature Source Pulse Rate 61 66 Respiratory Rate 22 H 14 Respiratory Effort Blood Pressure 126/75 H 158/78 H Blood Pressure Mean 92 104 Pulse Ox 99 100 Oxygen Delivery Method Room Air Weight Weight: 194 lb 3.636 oz Body Mass Index (BMI) 29.5 Physical Exam Narrative General: Alert, Oriented x3, Cooperative, No apparent distress HEENT: Atraumatic, PERRLA, EOMI, Normocephalic Oral: Moist Mucosa Neck: Supple, No JVD Lungs: Diminished, Normal air movement, No rhonchi, No wheeze, No rales Cardiovascular: Regular rate, Regular Rhythm, Normal S1, Normal S2, No murmurs Abdomen: Soft, Non Tender, Non-Distended, No Hepato-splenomegaly Extremities: No edema, Capillary Refill Less than 3 Seconds Skin: No rashes, No breakdown Musculoskeletal: No Tenderness to Palpation of Joints or Extremities Neurological: No focal neurological deficits, Motor Exam 5/5 strength throughout, Sensory exam intact to light touch and pain Psych/Mental Status: Normal Affect, Appropriate Results Lab / Micro Data 06/28/24 11:20 06/28/24 11:20 Labs: Laboratory Results - last 24 hr 06/28/24 11:20: WBC 7.9, RBC 4.01 L, Hgb 13.7, Hct 38.4 L, MCV 95.8 H, MCH 34.2 H, MCHC 35.7 D, RDW Std Deviation 52.4 H, RDW Coeff of Justin 17.1 H, Plt Count 285, MPV 10.1, Immature Gran % (Auto) 0.500, Neut % (Auto) 70.6 H, Lymph % (Auto) 17.6 L, [place] % (Auto) 8.8, Eos % (Auto) 2.0, Baso % (Auto) 0.5, Absolute Neuts (auto) 5.5, Absolute Lymphs (auto) 1.38, Nucleated RBC % 0, Sodium 138, Potassium 3.6, Chloride 102, Carbon Dioxide 28.0, Anion Gap 8, BUN 45 H, Creatinine 2.08 H, Estim Creat Clear Calc 27.00, Est GFR (MDRD) Af Amer 39 L, Est GFR (MDRD) Non-Af 32 L, BUN/Creatinine Ratio 21.6 H, Glucose 182 H, Calcium 9.5, Troponin I High Sens 32 06/28/24 13:55: Troponin I High Sens 32 Rhythm Strip Rhythm Strip: A-fib Rate: 72 Ectopy: None Imaging Radiology Impression Chest X-Ray 06/28/24 12:17 IMPRESSION: Chronic interstitial changes, no superimposed acute pulmonary process Electronically Signed: Cristopher Quezada MD at 12:31 EDT Reading Location ID and State: [facility] / [place] , Service support , Assessment & Plan Assessment/Plan (1) Chest pain: PLAN: Plan 1. Chest pain/CAD status post stents/essential HTN/HLD/chronic diastolic CHF ? Continue with blood pressure medications ? Continue with Lipitor ? Will hold Eliquis for the possibility of any kind of intervention depending on the stress test ? Plan for stress test tomorrow ? She had an echo in January 2024 with an EF of 55% and a mildly enlarged right and left atrium consistent with diastolic CHF ? Continue with aspirin ? Continue with Lasix 2. DM2 ? Stable, continue with his home Lantus ? Sliding scale insulin ? Accu-Cheks ACHS ? Will monitor make adjustments as necessary 3. GERD ? Stable ? Continue with PPI 4. BPH ? Stable ? Continue with Flomax DVT: SCDs 75 minutes was spent on direct patient care, including documentation as well as chart review and collaboration with colleagues Charges/Coding Visit Charges Inpatient E&M: 22808 Init Hosp L3
--- NOTE | 2024-06-28 16:52 | EKG12_ITS ---
Test Reason : Blood Pressure : / mmHG Vent. Rate : 066 BPM Atrial Rate : 000 BPM P-R Int : 000 ms QRS Dur : 098 ms QT Int : 476 ms P-R-T Axes : 000 034 067 degrees QTc Int : 499 ms Atrial fibrillation Prolonged QT Abnormal ECG When compared with ECG of 28-JUN-2024 11:42, MANUAL COMPARISON REQUIRED, DATA IS UNCONFIRMED Confirmed by Bryant Tsang ([id number]), avid editor LASHANDA GARNETT ([id number]) on 06/29/2024 1:24:39 PM Referred By: MAEGAN Confirmed By:Bryant Tsang
[2024-06-28 17:37] LABS: Bedside Glucose 109 mg/dL (74-106)
[2024-06-28 18:01] LABS: Troponin-I HS 53 pg/mL (3.0-78.0)
[2024-06-28] MEDS: Furosemide 20 MG Tablet 60 MG PO (18:07)
[2024-06-28] MEDS: Tamsulosin HCl 0.4 MG Capsule PO (18:07)
[2024-06-28] MEDS: Albuterol 2.5 MG/3 ML VIAL.NEB. INHALATION (19:23)
[2024-06-28] MEDS: Budesonide Respules 0.5 MG/2 ML AMPUL.NEB. INHALATION (19:24)
[2024-06-28] MEDS: Pramipexole Di-HCl 0.5 MG Tablet PO (21:12)
[2024-06-28] MEDS: hydrALAZINE 50 MG Tablet 100 MG PO (21:12)
[2024-06-28] MEDS: Insulin Lispro 100 UNIT/ML INSULN.PEN SC (21:13)
[2024-06-28] MEDS: Insulin Glargine-YFGN 100 UNIT/ML Pen 18 UNIT SC (21:13)
[2024-06-28 22:38] LABS: Bedside Glucose 261 mg/dL (74-106)
[2024-06-29] VITALS (7 sets, daily range): BP systolic 142–168; BP diastolic 71–83; PULSE 62–74; RESP 18; TEMP 36.4–36.8; O2SAT 96–100
--- NOTE | 2024-06-29 01:21 | NURSING ---
Verbal report from Carmen Meredith RN.
[2024-06-29] MEDS: Acetaminophen 325 MG Tablet 650 MG PO ×2 (02:14→10:29)
[2024-06-29] MEDS: Aspirin E.C. 81 MG Tablet PO (05:55)
[2024-06-29] MEDS: hydrALAZINE 50 MG Tablet 100 MG PO (05:55)
--- NOTE | 2024-06-29 05:55 | EKG12_ITS ---
Test Reason : AM EKG Blood Pressure : / mmHG Vent. Rate : 064 BPM Atrial Rate : 000 BPM P-R Int : 000 ms QRS Dur : 082 ms QT Int : 462 ms P-R-T Axes : 000 029 062 degrees QTc Int : 476 ms Atrial fibrillation Nonspecific ST and T wave abnormality Abnormal ECG When compared with ECG of 28-JUN-2024 16:31, MANUAL COMPARISON REQUIRED, DATA IS UNCONFIRMED Confirmed by Bryant Tsang ([id number]), purchase request editor LASHANDA GARNETT ([id number]) on 06/29/2024 1:24:54 PM Referred By: Confirmed By:Bryant Tsang
[2024-06-29 05:56] LABS: Absolute Lymphocyte Count 1.48 X10^3/uL (0.83-4.51); Absolute Neutrophil Count 4.5 X10^3/uL (2.0-7.7); Basophil# 0.04 X10^3/uL; Basophil% 0.6 % (0-1); Eosinophil# 0.15 X10^3/uL; Eosinophils% 2.2 % (0-5); Hematocrit 35.5 % (40-54); Hemoglobin 12.4 g/dL (13.0-16.5); Lymphocyte # 1.48 X10^3/ul (0.83-4.51); Lymphocyte % 21.9 % (19-41); Mean Corp Hgb Conc 34.9 g/dL (32-36); Mean Corpuscular Hgb 33.3 pg (27.0-32.0); Mean Corpuscular Volume 95.4 fL (80-94); Mean Platelet Vol. 10.1 fl (6.2-12.0); Monocyte# 0.62 X10^3/uL; Monocyte% 9.2 % (0-10); NRBC Flagged by Analyzer 0 % (0-5); Neutrophil # 4.45 X10^3/uL (2.7-7.7); Neutrophil % 65.7 % (47-70); Platelet Count 260 K/mm3 (150-450); RBC Distribution Width CV 16.8 % (11.6-14.6); RBC Distribution Width SD 52.7 fl (35.1-43.9); Red Blood Count 3.72 M/mm3 (4.6-6.2); White Blood Count 6.8 K/mm3 (4.4-11.0)
[2024-06-29 06:50] LABS: Bedside Glucose 154 mg/dL (74-106)
[2024-06-29 07:16] LABS: Anion Gap 10 (5-15); BUN 44 mg/dL (7-18); BUN/Creat Ratio 22.9 RATIO (10-20); Chloride 104 mmol/L (98-107); Creatinine, Serum 1.92 mg/dL (0.70-1.30); EST Glomerular Filtration Rate 35 mL/min (>60); Est Glom Filt Rate - Afr Amer 43 mL/min (>60); Estimated Creatinine Clearance 24.61 ml/min; Glucose 151 mg/dL (74-106); Potassium 3.5 mmol/L (3.5-5.1); Sodium Level 140 mmol/L (136-145)
[2024-06-29] MEDS: Cholecalciferol (VIT D3) 25 MCG TABLET (1,000 UNITS) 100 MCG PO (10:29)
[2024-06-29] MEDS: Ascorbic Acid 500 MG Tablet PO (10:30)
[2024-06-29] MEDS: Pantoprazole Sodium 40 MG Tablet PO (10:30)
[2024-06-29] MEDS: Furosemide 20 MG Tablet 60 MG PO (10:30)
[2024-06-29] MEDS: FLU VACCINE **HIGH DOSE** TV 24-25 180 MCG/0.5 ML SYRINGE IM (10:32)
--- NOTE | 2024-06-29 10:57 | STRESSREP ---
Stress Test Report Date: 06/29/2024 Procedure: Pharmacologic stress nuclear imaging study Indications: Chest pain Consent: Per the patient Procedure: The patient underwent pharmacologic (Regadenoson) evaluation with a peak heart rate of 101 beats per minute (75%predicted maximal heart rate) and a peak blood pressure of 132/74 mmHg. The baseline ECG demonstrated atrial fibrillation. EKG during lexiscan infusion revealed no significant ischemic changes. EKG post infusion revealed no significant ischemic changes [There were no cardiac dysrhythmias pretest, during pharmacologic infusion, or recovery]. [There was no complaint of chest discomfort during pharmacologic infusion or recovery]. The examination was discontinued secondary to completion of protocol. Impression: 1. Lexiscan stress test test is negative for Lexiscan infusion induced EKG changes of ischemia. 2. Lexiscan stress test test is negative for Lexiscan infusion induced chest pain. 3. Results of the nuclear portion of the test is as below Myocardial perfusion imaging study: Technique: The patient was injected with 12 millicuries of technetium 99m Cardiolite and subsequently rest SPECT Cardiolite nuclear imaging was obtained in the horizontal long, vertical long, and short axis views. The patient underwent pharmacologic [Regadenoson 0.4mg] evaluation. Please see above for details. The patient was injected with 33.7 millicuries of technetium 99m Cardiolite and subsequently stress SPECT Cardiolite nuclear imaging was obtained in the horizontal long, vertical long, and short axis views. A gated Cardiolite study at peak stress was obtained. Interpretation: Rest and stress SPECT Cardiolite nuclear imaging status post realignment, normalization, and attenuation correction demonstrate mild decrease in the radioisotope uptake in the inferior wall on the stress images compared to the rest images suggestive of ischemia in this territory. Gated images reveal no significant regional wall motion abnormalities. The reported LVEF is 58%. Impression: 1. Mild inferior ischemia cannot be excluded. 2. Estimated ejection fraction is 58%. This note was generated with [employer] software. It may contain incorrect words, spelling, and punctuation that were not noted in checking the note before signing.
[2024-06-29] MEDS: Insulin Lispro 100 UNIT/ML INSULN.PEN SC (11:51)
[2024-06-29 12:09] LABS: Bedside Glucose 239 mg/dL (74-106)
[2024-06-29] MEDS: Budesonide Respules 0.5 MG/2 ML AMPUL.NEB. INHALATION (13:25)
[2024-06-29] MEDS: Albuterol 2.5 MG/3 ML VIAL.NEB. INHALATION (13:25)
--- NOTE | 2024-06-29 14:09 | PCM.DC ---
Discharge Instructions Diet Discharge Diet: Low fat / Low cholesterol Activity Discharge Activity: Return to Normal Activity Dressing / Incision Call your doctor if you observe: Fever of 101 or Higher, Shortness of breath, Dizziness, Fainting spells, Swelling in the ankles, Chest pain and Increased palpitations (irregular heartbeat) Follow Up Care Test Results: Test results from this visit will be discussed in further detail at your follow-up appointment, if applicable. Discharge Plan Admission Admit Date/Time: 06/28/24 13:50 Attending Provider: Tk Chandra Primary Care Provider: Carolynn Whitman Discharge Orders/Prescriptions Prescriptions: New ranolazine 500 mg tablet extended release 12 hr 500 mg PO BID Qty: 60 0RF Continued ammonium lactate 12 % lotion 1 applic TOPICAL QD-BID PRN (Reason: dry skin ) (DME) handicap placcard Qty: 1 0RF Rx Instructions: Lifetime: debility coenzyme Q10 [Co Q-10] 100 mg capsule 100 mg PO DAILY ascorbate calcium (vitamin C) 500 mg tablet 500 mg PO DAILY cholecalciferol (vitamin D3) 100 mcg (4,000 unit) tablet 100 mcg PO DAILY (DME) spacer See Rx Instructions .ROUTE .MEDSUPPLY Qty: 1 0RF Rx Instructions: As directed ipratropium bromide 42 mcg (0.06 %) spray,non-aerosol 2 spray INTRANASAL TID-QID PRN (Reason: allergy symptoms) Qty: 15 6RF Rx Instructions: nasal drip - administer into each nostril; wait 30 seconds between sprays (DME) lancets Misc See Rx Instructions .Route Qty: 180 1RF Rx Instructions: twice daily hydralazine 100 mg tablet 100 mg PO BID Qty: 180 3RF ropinirole 1 mg tablet 1 mg PO QHS Qty: 90 3RF Rx Instructions: administer 1-3 hours before bedtime albuterol sulfate [Ventolin HFA] 90 mcg/actuation HFA aerosol inhaler 2 inh INHALATION Q4H PRN (Reason: shortness of breath or wheezing) Qty: 18 6RF insulin glargine-yfgn 100 unit/mL (3 mL) insulin pen 18 unit subcut DAILY Patient Comments: pt states he takes it in pm insulin lispro [Humalog KwikPen Insulin] 100 unit/mL insulin pen 10 unit subcut TIDAC Rx Instructions: Hold if glucose less than 130 mg/dl lactulose 20 gram/30 mL solution 20 g PO BID PRN (Reason: constipation) Patient Comments: pt states he takes it sometimes daily Rx Instructions: 30 ml once or twice daily for constipation tamsulosin 0.4 mg capsule 0.4 mg PO QDAY Patient Comments: PT TAKES SOMETIMES isosorbide mononitrate 30 mg tablet extended release 24 hr 30 mg PO DAILY aspirin [Adult Aspirin Regimen] 81 mg tablet,delayed release (DR/EC) 81 mg PO DAILY finasteride 5 mg tablet 5 mg PO DAILY ipratropium-albuterol 0.5 mg-3 mg(2.5 mg base)/3 mL solution for nebulization 3 ml inhalation .COMPLEX Rx Instructions: 3 mL inhaled Q4H WA .RT; furosemide 40 mg tablet 60 mg PO BID Rx Instructions: Hold for NARENDRA nitroglycerin [Nitrostat] 0.4 mg tablet, sublingual 0.4 mg SUBLINGUAL Q5-15M PRN (Reason: chest pain) Qty: 25 2RF ipratropium bromide 0.02 % solution 2.5 ml inhalation Q6H PRN (Reason: shortness of breath or wheezing) Qty: 150 11RF budesonide-formoterol [Symbicort] 160-4.5 mcg/actuation HFA aerosol inhaler 2 puff inhalation BID Qty: 3 3RF Rx Instructions: administer with spacer, rinse mouth after each use montelukast 10 mg tablet 10 mg PO QHS Qty: 90 3RF (DME) pen needle, diabetic [1st Tier Unifine Pentips] 31 gauge x 1/4 needle See Rx Instructions .Route Qty: 100 1RF Rx Instructions: 3-4 times daily atorvastatin 40 mg tablet 40 mg PO QODAY Qty: 45 3RF Patient Comments: PT TAKES IN EVENING pantoprazole 40 mg tablet,delayed release (DR/EC) 40 mg PO DAILY Qty: 90 1RF (DME) OneTouch Ultra Test Strip See Rx Instructions .Route Qty: 180 1RF Rx Instructions: Check three to four times a day. Eliquis 2.5 mg tablet 2.5 mg PO BID Qty: 180 3RF ferrous sulfate 325 mg (65 mg iron) tablet 325 mg PO Q OTHER DAY Qty: 45 1RF loratadine 10 mg tablet 10 mg PO DAILY Qty: 90 0RF Referrals / Follow Up: Carolynn Whitman MD [Primary Care Provider] - Within 1 Week Laura Farias PA [Med Staff - [facility] [place] [facility]] - Within 1 Month Disposition Disposition (needs filled in before D/C Order can be placed): Home, Self Care
--- NOTE | 2024-06-29 15:27 | CASEMGMT ---
Patient has order for discharge. RN CM in to discuss needs at discharge, at bedside. Patient and deny needs or help at discharge. Patient and had no further questions or concerns.
--- NOTE | 2024-06-29 15:56 | CASEMGMT ---
Met with patient to complete MAGANA form. MAGANA form explained to patient who voiced understanding and signed form. Original form placed in pt?s chart and copy provided to patient. Imani Doll, Discharge Planning Asst
--- NOTE | 2024-06-29 17:14 | DS.PCM_ITS ---
Providers Date of Admission: 06/28/24 Primary Care Physician: Dr. Carolynn Whitman MD Reason For Visit: chest pain Diagnosis Discharge Diagnosis (1) Chest pain: Status: Acute Code(s): R07.9 - Chest pain, unspecified Medications at Discharge Home Medications ammonium lactate 12 % lotion 1 applic topical QD-BID PRN dry skin 02/06/18 handicap placcard #1 ea 09/28/19 ascorbate calcium (vitamin C) 500 mg tablet 500 mg PO DAILY Bone strength 05/03/20 coenzyme Q10 100 mg capsule (Co Q-10) 100 mg PO DAILY supplement 05/03/20 cholecalciferol (vitamin D3) 100 mcg (4,000 unit) tablet 100 mcg PO DAILY supplement 11/03/20 spacer #1 ea 01/12/21 nitroglycerin 0.4 mg sublingual tablet (Nitrostat) 0.4 mg sublingual Q5-15M PRN chest pain #25 tabs 06/08/22 lancets #180 ea 07/18/23 ipratropium bromide 42 mcg (0.06 %) nasal spray 2 spray intranasal TID-QID PRN allergy symptoms #15 mL 10/23/23 ipratropium bromide 0.02 % solution for inhalation 2.5 ml inhalation Q6H PRN shortness of breath or wheezing #150 mL 12/06/23 hydralazine 100 mg tablet 100 mg PO BID hypertension #180 tabs 12/26/23 albuterol sulfate 90 mcg/actuation aerosol inhaler (Ventolin HFA) 2 inh inhalation Q4H PRN shortness of breath or wheezing #18 grams 01/01/24 ropinirole 1 mg tablet 1 mg PO QHS restless leg #90 tabs 03/23/24 budesonide-formoterol HFA 160 mcg-4.5 mcg/actuation aerosol inhaler (Symbicort) 2 puff inhalation BID copd #3 ea 03/26/24 ipratropium 0.5 mg-albuterol 3 mg (2.5 mg base)/3 mL nebulization soln 3 ml inhalation .COMPLEX SOB &/OR WHEEZING 04/20/24 insulin glargine-yfgn 100 unit/mL (3 mL) subcutaneous pen 18 unit subcut DAILY dm2 05/01/24 insulin lispro 100 unit/mL subcutaneous pen (Humalog KwikPen (U-100) Insulin) 10 unit subcut TIDAC dm2 05/01/24 lactulose 20 gram/30 mL oral solution 20 g PO BID PRN constipation 05/01/24 montelukast 10 mg tablet 10 mg PO QHS Respiratory #90 tabs 05/04/24 pen needle, diabetic 31 gauge x 1/4 (1st Tier Unifine Pentips) #100 ea 05/06/24 atorvastatin 40 mg tablet 40 mg PO QODAY cholesterol #45 tabs 05/13/24 blood sugar diagnostic (FORMA TherapeuticsTouch Ultra Test strips) #180 ea 05/25/24 pantoprazole 40 mg tablet,delayed release 40 mg PO DAILY reflux #90 tabs 05/25/24 tamsulosin 0.4 mg capsule 0.4 mg PO QDAY 06/01/24 apixaban 2.5 mg tablet (Eliquis) 2.5 mg PO BID atrial fibrillation #180 tabs 06/02/24 furosemide 40 mg tablet 60 mg PO BID chf 06/16/24 isosorbide mononitrate 30 mg tablet,extended release 24 hr 30 mg PO DAILY htn/chf 06/16/24 aspirin 81 mg tablet,delayed release (Adult Aspirin Regimen) 81 mg PO DAILY 06/28/24 finasteride 5 mg tablet 5 mg PO DAILY 06/28/24 ferrous sulfate 325 mg (65 mg iron) tablet 325 mg PO Q OTHER DAY anemia #45 tabs 06/29/24 loratadine 10 mg tablet 10 mg PO DAILY allergys #90 tabs 06/29/24 ranolazine 500 mg tablet,extended release,12 hr 500 mg PO BID #60 tabs 06/29/24 Hospital Course Operations None Procedures Stress test Summary of Care Provided Minutes Spent on Discharge: 37 Hospital Course: Per HPI: DESIREE ROSAS, is a 89 M who presents to the hospital with substernal chest pain that would radiate to bilateral arms and jaw. He had a pain like this a couple of days ago and presented to the ER and was discharged home. He does have a significant CAD history with 9 previous stents with the most recent being about 16 years ago. He is on maximal therapy with aspirin, Lipitor, Eliquis for his A-fib. This episode of chest pain occurred today, he took some nitro's and presented to the ER. In the ER EKG was nonischemic and initial troponin was normal. He does have an outpatient stress test scheduled for 8 days and given his chest pain occurring intermittently since it was discussed to admit for observation and stress test in the morning Hospital Course: 1. Chest pain/CAD status post stents/essential HTN/HLD/chronic diastolic CHF?8 9-year-old male with a history of 9 stents presents to the hospital with recurrent chest pain. He did undergo a stress test today as it was ordered by his nursery laborer about a week later and he was found to be essentially nonischemic though it could not be completely ruled out on the inferior portion. I discussed the situation with cardiology who felt that it was not significant enough to warrant cardiac cath at this time or transfer to another level of care. They recommended ranolazine at 500 mg p.o. twice daily and follow-up with cardiology. I did talk specifically to his outpatient nursery laborer so they are aware and they will see him when they see his in a couple of weeks. He no longer takes his Coreg and he is holding his Imdur secondary to hypotension. I discussed with him and his the plan for discharge today they expressed understanding of the risk benefits of going home and are okay with going home today. 2. Type 2 diabetes, GERD, BPH are chronic medical conditions which complicate his care. His home medications were continued where appropriate Physical Exam Narrative General: Alert, Oriented x3, Cooperative, No apparent distress HEENT: Atraumatic, PERRLA, EOMI, Normocephalic Oral: Moist Mucosa Neck: Supple, No JVD Lungs: Diminished, Normal air movement, No rhonchi, No wheeze, No rales Cardiovascular: Regular rate, Regular Rhythm, Normal S1, Normal S2, No murmurs Abdomen: Soft, Non Tender, Non-Distended, No Hepato-splenomegaly Extremities: No edema, Capillary Refill Less than 3 Seconds Skin: No rashes, No breakdown Musculoskeletal: No Tenderness to Palpation of Joints or Extremities Neurological: No focal neurological deficits, Motor Exam 5/5 strength throughout, Sensory exam intact to light touch and pain Psych/Mental Status: Normal Affect, Appropriate Weight / BMI Weight Weight: 188 lb 7.924 oz Body Mass Index (BMI) 36.8 ABG / Lab / Microbiology Data 06/29/24 05:13 06/29/24 05:13 Laboratory: Laboratory Results - last 24 hr 06/28/24 17:18: POC Glucose 109 H 06/28/24 17:30: Troponin I High Sens 53 06/28/24 21:04: POC Glucose 261 H 06/29/24 05:13: WBC 6.8, RBC 3.72 L, Hgb 12.4 L, Hct 35.5 L, MCV 95.4 H, MCH 33.3 H, MCHC 34.9, RDW Std Deviation 52.7 H, RDW Coeff of Justin 16.8 H, Plt Count 260, MPV 10.1, Immature Gran % (Auto) 0.400, Neut % (Auto) 65.7, Lymph % (Auto) 21.9, Dickenson % (Auto) 9.2, Eos % (Auto) 2.2, Baso % (Auto) 0.6, Absolute Neuts (auto) 4.5, Absolute Lymphs (auto) 1.48, Nucleated RBC % 0, Sodium 140, Potassium 3.5, Chloride 104, Carbon Dioxide 26.0, Anion Gap 10, BUN 44 H, C reatinine 1.92 H, Estim Creat Clear Calc 24.61, Est GFR (MDRD) Af Amer 43 L, Est GFR (MDRD) Non-Af 35 L, BUN/Creatinine Ratio 22.9 H, Glucose 151 H, Calcium 9.0 06/29/24 05:54: POC Glucose 154 H 06/29/24 11:49: POC Glucose 239 H D/C Instructions Discharge Diet: Low fat / Low cholesterol Call your doctor if you observe: Fever of 101 or Higher, Shortness of breath, Dizziness, Fainting spells, Swelling in the ankles, Chest pain and Increased palpitations (irregular heartbeat) Meaningful Use Info Meaningful Use Meaningful Use Diagnoses (Choose all that apply): None applicable Ischemic Stroke Statin Dosing Therapy Reference: STATIN DOSE THERAPY REFERENCE: * Patients > 75 years receive moderate or high dose statin therapy. * Patients 75 years or YOUNGER should receive HIGH intensity statin dose unless contraindicated. You will be required to document reason for non-treatment if statin daily dose does not meet guidelines. HIGH DOSE STATIN THERAPY DAILY Atorvastatin > than or = to 40 mg Rosuvastatin > than or = to 20 mg Amlodipine + Atorvastatin > than or = to 2.5/40 mg Ezetimibe + Simvastatin 10/80 mg Simvastatin 80mg Discharge Plan Admission Admit Date/Time: 06/28/24 13:50 Attending Provider: Tk Chandra Primary Care Provider: Carolynn Whitman Discharge Orders/Prescriptions Prescriptions: New ranolazine 500 mg tablet extended release 12 hr 500 mg PO BID Qty: 60 0RF Continued ammonium lactate 12 % lotion 1 applic TOPICAL QD-BID PRN (Reason: dry skin ) (DME) handicap placcard Qty: 1 0RF Rx Instructions: Lifetime: debility coenzyme Q10 [Co Q-10] 100 mg capsule 100 mg PO DAILY ascorbate calcium (vitamin C) 500 mg tablet 500 mg PO DAILY cholecalciferol (vitamin D3) 100 mcg (4,000 unit) tablet 100 mcg PO DAILY (DME) spacer See Rx Instructions .ROUTE .MEDSUPPLY Qty: 1 0RF Rx Instructions: As directed ipratropium bromide 42 mcg (0.06 %) spray,non-aerosol 2 spray INTRANASAL TID-QID PRN (Reason: allergy symptoms) Qty: 15 6RF Rx Instructions: nasal drip - administer into each nostril; wait 30 seconds between sprays (DME) lancets Misc See Rx Instructions .Route Qty: 180 1RF Rx Instructions: twice daily hydralazine 100 mg tablet 100 mg PO BID Qty: 180 3RF ropinirole 1 mg tablet 1 mg PO QHS Qty: 90 3RF Rx Instructions: administer 1-3 hours before bedtime albuterol sulfate [Ventolin HFA] 90 mcg/actuation HFA aerosol inhaler 2 inh INHALATION Q4H PRN (Reason: shortness of breath or wheezing) Qty: 18 6RF insulin glargine-yfgn 100 unit/mL (3 mL) insulin pen 18 unit subcut DAILY Patient Comments: pt states he takes it in pm insulin lispro [Humalog KwikPen Insulin] 100 unit/mL insulin pen 10 unit subcut TIDAC Rx Instructions: Hold if glucose less than 130 mg/dl lactulose 20 gram/30 mL solution 20 g PO BID PRN (Reason: constipation) Patient Comments: pt states he takes it sometimes daily Rx Instructions: 30 ml once or twice daily for constipation tamsulosin 0.4 mg capsule 0.4 mg PO QDAY Patient Comments: PT TAKES SOMETIMES isosorbide mononitrate 30 mg tablet extended release 24 hr 30 mg PO DAILY aspirin [Adult Aspirin Regimen] 81 mg tablet,delayed release (DR/EC) 81 mg PO DAILY finasteride 5 mg tablet 5 mg PO DAILY ipratropium-albuterol 0.5 mg-3 mg(2.5 mg base)/3 mL solution for nebulization 3 ml inhalation .COMPLEX Rx Instructions: 3 mL inhaled Q4H WA .RT; furosemide 40 mg tablet 60 mg PO BID Rx Instructions: Hold for NARENDRA nitroglycerin [Nitrostat] 0.4 mg tablet, sublingual 0.4 mg SUBLINGUAL Q5-15M PRN (Reason: chest pain) Qty: 25 2RF ipratropium bromide 0.02 % solution 2.5 ml inhalation Q6H PRN (Reason: shortness of breath or wheezing) Qty: 150 11RF budesonide-formoterol [Symbicort] 160-4.5 mcg/actuation HFA aerosol inhaler 2 puff inhalation BID Qty: 3 3RF Rx Instructions: administer with spacer, rinse mouth after each use montelukast 10 mg tablet 10 mg PO QHS Qty: 90 3RF (DME) pen needle, diabetic [1st Tier Unifine Pentips] 31 gauge x 1/4 needle See Rx Instructions .Route Qty: 100 1RF Rx Instructions: 3-4 times daily atorvastatin 40 mg tablet 40 mg PO QODAY Qty: 45 3RF Patient Comments: PT TAKES IN EVENING pantoprazole 40 mg tablet,delayed release (DR/EC) 40 mg PO DAILY Qty: 90 1RF (DME) OneTouch Ultra Test Strip See Rx Instructions .Route Qty: 180 1RF Rx Instructions: Check three to four times a day. Eliquis 2.5 mg tablet 2.5 mg PO BID Qty: 180 3RF ferrous sulfate 325 mg (65 mg iron) tablet 325 mg PO Q OTHER DAY Qty: 45 1RF loratadine 10 mg tablet 10 mg PO DAILY Qty: 90 0RF Referrals / Follow Up: Carolynn Whitman MD [Primary Care Provider] - Within 1 Week Laura Farias PA [Med Staff - [facility]] - Within 1 Month Disposition Disposition (needs filled in before D/C Order can be placed): Home, Self Care Charges/Coding Visit Charges Inpatient E&M: 54537 Disch Hosp >30min
== END 2024-06-29 14:36 | disposition home or self-care (01) ==
LOC: ED 12:53 → PCU 14:20
PROVIDERS: Admitting Provider Family Medicine; Emergency Provider Emergency Medicine; PCP Internal Medicine; Visit Provider Family Medicine
DX: R07.89 Other chest pain (principal); I13.0 Hypertensive heart and chronic kidney disease with heart failure and stage 1 through stage 4 chronic kidney disease, or unspecified chronic kidney disease; I50.32 Chronic diastolic (congestive) heart failure; J44.89 Other specified chronic obstructive pulmonary disease; I48.20 Chronic atrial fibrillation, unspecified; E11.51 Type 2 diabetes mellitus with diabetic peripheral angiopathy without gangrene; E11.22 Type 2 diabetes mellitus with diabetic chronic kidney disease; Z79.4 Long term (current) use of insulin; Z79.82 Long term (current) use of aspirin; N18.9 Chronic kidney disease, unspecified; Z79.51 Long term (current) use of inhaled steroids; Z87.891 Personal history of nicotine dependence; K21.9 Gastro-esophageal reflux disease without esophagitis; E78.5 Hyperlipidemia, unspecified; Z95.5 Presence of coronary angioplasty implant and graft; Z79.01 Long term (current) use of anticoagulants; I25.10 Atherosclerotic heart disease of native coronary artery without angina pectoris; Z23 Encounter for immunization
CPT/HCPCS: 36415; 71045; 78452; 80048; 82962; 84484; 85025; 90662; 93005; 93017; 94640; 99221; 99285; A9500; G0008; G0378; J2785

== ENCOUNTER → 2024-08-24 | Outpatient (CLI) | payer MEDICARE, SELFPAY ==
[2024-08-24 16:45] LABS: Protein:Creat Ratio 392 mg/g CRE (0-200)
[2024-08-24 17:12] LABS: Anion Gap 9 (5-15); BUN 39 mg/dL (7-18); BUN/Creat Ratio 18.9 RATIO (10-20); Calcium,Total 9.2 mg/dL (8.5-10.1); Chloride 102 mmol/L (98-107); Creatinine, Serum 2.06 mg/dL (0.70-1.30); EST Glomerular Filtration Rate 33 mL/min (>60); Est Glom Filt Rate - Afr Amer 40 mL/min (>60); Glucose 105 mg/dL (74-106); Iron 71 ug/dL (65-175); Iron Binding Capacity,Total 325 ug/dL (250-450); PERCENT IRON SATURATION 21.8 % (15.0-55.0); Potassium 3.9 mmol/L (3.5-5.1); Sodium Level 138 mmol/L (136-145)
[2024-08-24 17:21] LABS: Hematocrit 40.2 % (40-54); Hemoglobin 12.9 g/dL (13.0-16.5); Mean Corp Hgb Conc 32.1 g/dL (32-36); Mean Corpuscular Hgb 29.9 pg (27.0-32.0); Mean Corpuscular Volume 93.3 fL (80-94); Mean Platelet Vol. 10.4 fl (6.2-12.0); Platelet Count 295 K/mm3 (150-450); RBC Distribution Width CV 13.3 % (11.6-14.6); RBC Distribution Width SD 45.7 fl (35.1-43.9); Red Blood Count 4.31 M/mm3 (4.6-6.2); White Blood Count 7.9 K/mm3 (4.4-11.0)
== END | disposition home or self-care (01) ==
LOC: BIMLAB 15:29
PROVIDERS: PCP Internal Medicine; Visit Provider Internal Medicine
DX: N18.4 Chronic kidney disease, stage 4 (severe) (principal)
CPT/HCPCS: 36415; 80048; 82570; 83540; 83550; 84156; 85027

== ENCOUNTER → 2024-08-31 | Outpatient (CLI) | payer MEDICARE, SELFPAY ==
--- NOTE | 2024-08-31 14:23 | US_ITS ---
STUDY: THYROID ULTRASOUND REASON FOR EXAM: Male, 89 years old. thyroid nodule f/u TECHNIQUE: Ultrasound evaluation of the thyroid was performed with real-time and static mandel-scale imaging. COMPARISON: 10/01/2023 FINDINGS: RIGHT LOBE: The right lobe of the thyroid gland measures 5.3 x 2.1 x 1.9 cm. There is a homogeneous echotexture. Nodule 1: No change in the 7 x 5 x 7 mm cystic anechoic wider than tall smoothly margin nodule with no echogenic foci (TR 1) in the mid right lobe consistent with a colloid cyst. Nodule 2:10 x 8 x 12 mm solid hypoechoic wider than tall smoothly margin nodule with no echogenic foci (TR 4) in the posterior right lobe and follow-up ultrasound is recommended in one year. LEFT LOBE: The left lobe of the thyroid gland measures 4.4 x 1.6 x 2.0 cm. There is a homogeneous echotexture. Nodule 3:10 x 10 x 5 mm solid hypoechoic wider than tall ill-defined margin nodule with no echogenic foci (TR 4) in the posterior left lobe and follow-up ultrasound is recommended in one year. ISTHMUS: The isthmus measures 6 mm thick. . The regional lymph nodes are normal. US/Thyroid IMPRESSION: Multinodular thyroid gland. Follow-up ultrasound is recommended in one year. Electronically Signed: Colton Macdonald MD at 8:58 EST ,
== END | disposition home or self-care (01) ==
LOC: US 14:23
PROVIDERS: PCP Internal Medicine; Referring Provider Internal Medicine; Visit Provider Internal Medicine
DX: E04.1 Nontoxic single thyroid nodule (principal)
CPT/HCPCS: 76536

== ENCOUNTER → 2024-11-03 | Outpatient (CLI) | payer MEDICARE, SELFPAY | END | disposition home or self-care (01) | LOC: SL 12:20 | PROVIDERS: PCP Internal Medicine; Visit Provider Nurse Practitioner Family | DX: Z46.89 Encounter for fitting and adjustment of other specified devices (principal) ==

== ENCOUNTER → 2024-11-24 | Outpatient (CLI) | payer MEDICARE, SELFPAY ==
[2024-11-24 16:40] LABS: Protein, Urine (Random) 27.5 mg/dL (<11.9); Protein:Creat Ratio 525 mg/g CRE (0-200)
[2024-11-24 17:05] LABS: Anion Gap 9 (5-15); BUN 38 mg/dL (7-18); BUN/Creat Ratio 17.9 RATIO (10-20); Calcium,Total 9.7 mg/dL (8.5-10.1); Chloride 99 mmol/L (98-107); Creatinine, Serum 2.12 mg/dL (0.70-1.30); EST Glomerular Filtration Rate 32 mL/min (>60); Est Glom Filt Rate - Afr Amer 38 mL/min (>60); Glucose 118 mg/dL (74-106); Potassium 3.8 mmol/L (3.5-5.1); Sodium Level 137 mmol/L (136-145)
== END | disposition home or self-care (01) ==
LOC: MTLAB 13:37
PROVIDERS: PCP Internal Medicine; Referring Provider Nurse Practitioner Adult Health; Visit Provider Nurse Practitioner Adult Health
DX: N18.4 Chronic kidney disease, stage 4 (severe) (principal)
CPT/HCPCS: 36415; 80048; 82570; 84156

== ENCOUNTER 2024-12-14 08:19 | Inpatient (IN) | payer MEDICARE, SELFPAY ==
[2024-12-14] VITALS (15 sets, daily range): BP systolic 156–180; BP diastolic 74–92; PULSE 68–85; RESP 18–26; TEMP 36.7–37.2; O2SAT 87–98; BMI 35.1; BMI 33.0
--- NOTE | 2024-12-14 08:41 | EKG12_ITS ---
Test Reason : SOB Blood Pressure : */* mmHG Vent. Rate : 77 BPM Atrial Rate : * BPM P-R Int : * ms QRS Dur : 104 ms QT Int : 480 ms P-R-T Axes : * 74 39 degrees QTcB Int : 543 ms Atrial fibrillation Nonspecific ST abnormality Prolonged QT Abnormal ECG Confirmed by Bryant Tsang ([id number]), newspaper copy editor LASHADNA GARNETT ([id number]) on 12/15/2024 10:50:27 AM Referred By: Confirmed By: Bryant Tsang
--- NOTE | 2024-12-14 08:43 | ED.VIS.DYS ---
HPI History of Present Illness Chief Complaint: Shortness of Breath Narrative Narrative: Chief complaint and HPI: Shortness of breath. 89-year-old male with history of atrial fibrillation on Eliquis, asthma, COPD, CKD, CAD, HLD, DM2, HFpEF presents for evaluation of shortness of breath. Patient states that he has had a cough and congestion over the past several days. He states that yesterday he became short of breath which improved with home nebulizers. He states that his shortness of breath worsened this morning in which he called EMS. On EMS arrival patient was 88% on room air. Patient was given a DuoNeb with improvement in oxygen saturation. Patient states that he used to have oxygen as needed at home for his COPD however this was recently removed. She does not wear oxygen daily. He denies any fever, chills, chest pain, abdominal pain, nausea, vomiting, diarrhea, lower extremity swelling. Review of systems: See HPI Medications: As listed on the chart Allergies: As listed on the chart PFSH: Per chart Vital signs: As listed on the chart. Reviewed. Physical exam: Gen: A&O x3, NAD Head: Normocephalic, atraumatic Eyes: No sclera icterus, conjunctiva clear ENT: Moist mucous membranes Neck: Trachea midline, No JVD CV: Regular rate, irregular rhythm, no murmurs, no peripheral edema Resp: Lungs diminished bilaterally, expiratory wheezing, + productive cough GI: Abd soft, non-distended, non-tender, no r/r/g Musc: Full ROM, no deformity Skin: Warm, dry Neuro: Alert, oriented, grossly intact, sensation intact Psych: Cooperative, appropriate mood and affect [facility] Medical History Complicated urinary tract infection Colonic mass Controlled type 2 diabetes mellitus Acute respiratory insufficiency Chronic anemia Bilateral edema of lower extremity Urinary tract infection Urinary retention Chronic kidney disease Fatigue Pleural effusion (HFpEF) heart failure with preserved ejection fraction Pneumonia Colon polyp Lightheadedness Chronic constipation Anemia Obstructive sleep apnea Coronary artery disease Gastroesophageal reflux disease Allergic rhinitis Hyperlipidemia Urinary retention Wears hearing aid Wears dentures Wears glasses Cancer History of steroid therapy Ambulates with cane Walker as ambulation aid Arthritis Kidney stone Easy bruising Back pain Injury of back History of hiatal hernia Former smoker BiPAP (biphasic positive airway pressure) dependence Asthma Hoarseness Chronic cough Leg cramps History of pain when walking History of stress test History of heart attack History of irregular heartbeat Recurrent urinary tract infection ALMEIDA (dyspnea on exertion) Chest pain Right leg swelling Patellar bursitis of right knee Asthma-COPD overlap syndrome Abdominal aortic aneurysm (AAA) Peripheral vascular disease of extremity with claudication Rectus sheath hematoma Pre-syncope Essential (primary) hypertension Restless legs syndrome Daytime hypersomnia Somatic dysfunction of pelvic region DDD (degenerative disc disease), lumbar Overweight Seasonal allergies Carotid bruit Atherosclerotic heart disease of [place] coronary artery without angina pectoris PVD (peripheral vascular disease) COPD (chronic obstructive pulmonary disease) Home Medications ?Medication ?Instructions ?Recorded ?Last Taken ?Type handicap placcard #1 ea 09/28/19 Unknown Rx ascorbate calcium (vitamin C) 500 500 mg PO DAILY Bone strength 05/03/20 06/28/24 History mg tablet coenzyme Q10 100 mg capsule (Co 100 mg PO DAILY supplement 05/03/20 06/28/24 History Q-10) cholecalciferol (vitamin D3) 100 100 mcg PO DAILY supplement 11/03/20 06/28/24 History mcg (4,000 unit) tablet spacer #1 ea 01/12/21 Unknown Rx lancets #180 ea 07/18/23 Unknown Rx hydralazine 100 mg tablet 100 mg PO BID hypertension #180 12/26/23 06/28/24 Rx tabs albuterol sulfate 90 mcg/actuation 2 inh inhalation Q4H PRN shortness 01/01/24 Unknown Rx aerosol inhaler (Ventolin HFA) of breath or wheezing #18 grams ropinirole 1 mg tablet 1 mg PO QHS restless leg #90 tabs 03/23/24 06/27/24 Rx lactulose 20 gram/30 mL oral 20 g PO BID PRN constipation 05/01/24 Unknown History solution montelukast 10 mg tablet 10 mg PO QHS Respiratory #90 tabs 05/04/24 06/27/24 Rx atorvastatin 40 mg tablet 40 mg PO QODAY cholesterol #45 tabs 05/13/24 06/27/24 Rx tamsulosin 0.4 mg capsule 0.4 mg PO QDAY 06/01/24 06/27/24 History finasteride 5 mg tablet 5 mg PO DAILY 06/28/24 Unknown History nitroglycerin 0.4 mg sublingual 0.4 mg sublingual Q5-15M PRN chest 07/29/24 Unknown Rx tablet (Nitrostat) pain #25 tabs ranolazine 500 mg tablet,extended 500 mg PO BID #180 tabs 07/29/24 Unknown Rx release,12 hr blood sugar diagnostic (OneTouch #180 ea 08/03/24 Unknown Rx Ultra Test strips) apixaban 2.5 mg tablet (Eliquis) 2.5 mg PO BID atrial fibrillation 08/28/24 Unknown Rx #180 tabs insulin glargine-yfgn 100 unit/mL 22 unit (0.22 mL) subcut DAILY #15 09/16/24 Unknown Rx (3 mL) subcutaneous pen (Semglee mL (insulin glargine-yfgn) Pen) loratadine 10 mg tablet 10 mg PO DAILY allergys #90 tabs 10/05/24 Unknown Rx insulin aspart U-100 100 unit/mL 10 unit (0.1 mL) subcut TID #15 mL 10/07/24 Unknown Rx subcutaneous cartridge (Novolog PenFill U-100 Insulin aspart) handicap placard #1 ea 10/12/24 Unknown Rx budesonide-formoterol HFA 160 2 puff inhalation BID copd #3 ea 10/16/24 Unknown Rx mcg-4.5 mcg/actuation aerosol inhaler (Symbicort) pen needle, diabetic 31 gauge x #100 ea 10/23/24 Unknown Rx 1/4 (Unifine Pentips) ipratropium 0.5 mg-albuterol 3 mg 3 ml inhalation .COMPLEX SOB &/OR 11/05/24 Unknown Rx (2.5 mg base)/3 mL nebulization WHEEZING #180 mL soln furosemide 40 mg tablet 20 mg PO BID chf 11/30/24 Unknown History pantoprazole 40 mg tablet,delayed 40 mg PO DAILY reflux #90 tabs 11/30/24 Unknown Rx release aspirin 81 mg tablet,delayed 81 mg PO DAILY 12/14/24 Unknown History release (Adult Low Dose Aspirin) docusate sodium 100 mg capsule 100 mg PO DAILY PRN constipation 12/14/24 Unknown History (Colace) ipratropium bromide 21 mcg (0.03 2 spray intranasal BID 12/14/24 Unknown History %) nasal spray Allergy/AdvReac Type Severity Reaction Status Date / Time cilostazol (From Pletal) Allergy Unknown Verified 11/30/24 14:14 felodipine Allergy Hives Verified 11/30/24 14:14 levofloxacin Allergy Hives Verified 11/30/24 14:14 Sulfa (Sulfonamide Allergy Unknown Verified 11/30/24 14:14 Antibiotics) isosorbide AdvReac Intermediate low BP Verified 11/30/24 14:14 Family History Father Diabetes Cancer Prostate cancer Mother Dementia Brother Parkinsons Brother Cancer Surgical History History of surgical procedure H/O vascular surgery History of surgical procedure History of transurethral resection of prostate History of endarterectomy (07/2018) History of left heart catheterization (03/2014) History of coronary artery stent placement (02/17/08) History of vascular surgery (08/2018) History of hernia repair H/O aortic aneurysm repair (11/1998) Social History household members: spouse 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 status: retired current occupation: [employer] Smoking Status: Former smoker quit date: 08/07/08 pack-years: 2 Tobacco: How many years used: 52 Electronic Cigarette Use: not used how long ago did patient quit smokin years ago alcohol intake: current alcohol intake frequency: holidays/special occasions only details: hx of alcohol abuse substance use type: does not use caffeine: No what type of physical activity do you participate in: other details: Nustep frequency: 5-6 times per week duration: 15-30 minutes/day seatbelt use: always do you feel safe at home: Yes EXAM Physical Exam Const Vital Signs: 12/14/24 08:20 12/14/24 08:24 12/14/24 08:45 Temperature 98.1 F Temperature Source Oral Pulse Rate 79 Respiratory Rate 19 H Respiratory Effort Short of Breath Blood Pressure 160/76 H Blood Pressure Mean 104 Pulse Ox 95 87 Oxygen Delivery Method Room Air Room Air Oxygen Flow Rate (L/min) 12/14/24 08:56 12/14/24 09:38 12/14/24 11:00 Temperature Temperature Source Pulse Rate 78 Respiratory Rate 22 H Respiratory Effort Blood Pressure 160/77 H Blood Pressure Mean 104 Pulse Ox 95 98 95 Oxygen Delivery Method Nasal Cannula Nasal Cannula Nasal Cannula Oxygen Flow Rate (L/min) 1 1 2 12/14/24 11:25 12/14/24 11:25 12/14/24 11:47 Temperature 98.2 F Temperature Source Pulse Rate 81 78 Respiratory Rate 26 H 22 H Respiratory Effort Blood Pressure 169/81 H Blood Pressure Mean 110 Pulse Ox 95 95 Oxygen Delivery Method Nasal Cannula Oxygen Flow Rate (L/min) 2 MDM MDM MDM Narrative Medical decision making narrative: 89-year-old male with history of atrial fibrillation on Eliquis, asthma, COPD, CKD, CAD, HLD, DM2, HFpEF presents for evaluation of shortness of breath. Differential diagnosis includes but is not limited to COPD exacerbation, asthma exacerbation, influenza, COVID, viral illness, pneumonia. 500 cc NS bolus ordered with breathing treatments and Solu-Medrol. Laboratory workup ordered including chest x-ray. VBG without hypercapnia. EKG and chest x-ray reviewed see below. CBC without leukocytosis. Patient has baseline anemia. BMP shows baseline CKD. Patient positive for influenza A. Patient is outside the Tamiflu window given that this has been going on for multiple days. Patient was requiring 1 L nasal cannula due to oxygen saturations at 87/86%. After breathing treatments his saturations improved and he was taken off of oxygen. We attempted ambulation in the emergency department and patient became very symptomatic. He had increased shortness of breath and wheezing. Another albuterol treatment ordered. Patient again is requiring 1-2 L nasal cannula. Patient will warrant admission. Patient was updated on all results and plan. He confirmed understanding. Hospitalist accepted admission. EKG: Interpreted by me/EM physician: EKG shows known atrial fibrillation with nonspecific ST changes. Heart rate 77. Patient does have a prolonged QTc. Nonspecific ST changes on previous EKG. Diagnostic: Interpreted by me/EM physician: Chest x-ray without pneumonia, large effusion, pneumothorax. Patient has some vascular congestion. Impression: 1. Acute hypoxia requiring oxygen via nasal cannula 2. COPD exacerbation 3. Influenza A infection Lab Data Labs: Laboratory Results - last 24 hr 12/14/24 12/14/24 08:28 09:46 WBC 5.9 RBC 3.21 L Hgb 11.2 L Hct 31.5 L MCV 98.1 H MCH 34.9 H MCHC 35.6 RDW Std Deviation 45.8 H RDW Coeff of Justin 13.8 Plt Count 189 MPV 10.5 Immature Gran % (Auto) 0.700 Neut % (Auto) 74.3 H Lymph % (Auto) 17.9 L [place] % (Auto) 6.6 Eos % (Auto) 0.3 Baso % (Auto) 0.2 Absolute Neuts (auto) 4.4 Absolute Lymphs (auto) 1.06 Nucleated RBC % 0 Sodium 137 Potassium 3.3 Chloride 91 L Carbon Dioxide 30.6 Anion Gap 16 H BUN 48 H Creatinine 2.22 H Estim Creat Clear Calc 25.77 L Est GFR (MDRD) Non-Af 28 L BUN/Creatinine Ratio 21.6 H Glucose 140 H Calcium 8.7 POC Glucose 170 H ABG Data ABG results: ABG 12/14/24 09:33 Specimen Type YURY Sample Site Not entered O2 % 1.0 VBG pH 7.47 H VBG pO2 34 VBG HCO3 33 H VBG Total CO2 35 H VBG O2 Sat (Calc) 69 VBG Base Excess 10 H POC Mix VBG pCO2 Pt Tmp 45.6 O2 Delivery Device Cannula Radiography Diagnostic Testing: Clinical Impression(s) from Imaging Studies Chest X-Ray 12/14/24 10:00 IMPRESSION: Cardiomegaly with mild congestion. Reading Location: [facility] Discharge Plan Disposition Disposition: Acute Care Hospital [facility] Discharge Date/Time: 12/14/24 13:58
[2024-12-14 08:56] LABS: Absolute Lymphocyte Count 1.06 X10^3/uL (0.83-4.51); Absolute Neutrophil Count 4.4 X10^3/uL (2.0-7.7); Basophil# 0.01 X10^3/uL; Basophil% 0.2 % (0-1); Eosinophil# 0.02 X10^3/uL; Eosinophils% 0.3 % (0-5); Hematocrit 31.5 % (40-54); Hemoglobin 11.2 g/dL (13.0-16.5); Lymphocyte # 1.06 X10^3/ul (0.83-4.51); Lymphocyte % 17.9 % (19-41); Mean Corp Hgb Conc 35.6 g/dL (32-36); Mean Corpuscular Hgb 34.9 pg (27.0-32.0); Mean Corpuscular Volume 98.1 fL (80-94); Mean Platelet Vol. 10.5 fl (6.2-12.0); Monocyte# 0.39 X10^3/uL; Monocyte% 6.6 % (0-10); NRBC Flagged by Analyzer 0 % (0-5); Neutrophil # 4.39 X10^3/uL (2.7-7.7); Neutrophil % 74.3 % (47-70); Platelet Count 189 K/mm3 (150-450); RBC Distribution Width CV 13.8 % (11.6-14.6); RBC Distribution Width SD 45.8 fl (35.1-43.9); Red Blood Count 3.21 M/mm3 (4.6-6.2); White Blood Count 5.9 K/mm3 (4.4-11.0)
[2024-12-14] MEDS: Ipratropium/Albuterol Sulfate 3 ML AMPUL.NEB 6 ML INHALATION (08:56)
[2024-12-14] MEDS: MethylPREDNISolone 125 MG/2 ML Vial IV (08:56)
[2024-12-14] MEDS: Albuterol 2.5 MG/3 ML VIAL.NEB. INHALATION ×2 (08:56→11:28)
[2024-12-14] MEDS: 0.9% Normal Saline (500mL Bag) 500 ML 999 ML IV (08:59)
[2024-12-14 09:37] LABS: Blood Gas Specimen Type VEN; O2 Delivery Device Cannula; SITE Not entered; VBG BASE EXCESS 10 mmol/L (-1.0-3.5); VBG Bicarbonate 33 mmol/L (22-26); VBG PO2 34 mmHg (25-40); VBG SO2 69 % (50-70); VBG TCO2 35 mmol/L (23-33); VBG pCO2 45.6 mmHg (41-51); VBG pH 7.47 (7.32-7.42)
[2024-12-14 09:53] LABS: Anion Gap 16 (5-15); BUN 48 mg/dL (4-19); BUN/Creat Ratio 21.6 RATIO (10-20); Calcium,Total 8.7 mg/dL (7.6-11.0); Carbon Dioxide 30.6 mmol/L (21.0-32.0); Chloride 91 mmol/L (98-108); Creatinine, Serum 2.22 mg/dL (0.70-1.20); EST Glomerular Filtration Rate 28 (>60); Estimated Creatinine Clearance 25.77 ml/min (50-250); Glucose 140 mg/dL (70-99); Potassium 3.3 mmol/L (3.3-5.1); Sodium Level 137 mmol/L (133-145)
--- NOTE | 2024-12-14 10:00 | RAD_ITS ---
EXAM: XR Chest, 2 Views CLINICAL INDICATION: TECHNIQUE: Frontal and lateral views of the chest. COMPARISON: No relevant prior studies available. FINDINGS: LUNGS AND PLEURAL SPACES: See below. HEART: Cardiomegaly with mild congestion. MEDIASTINUM: Unremarkable. Normal mediastinal contour. BONES/JOINTS: Unremarkable. No acute fracture. RAD/Chest PA and Lateral IMPRESSION: Cardiomegaly with mild congestion. Reading Location[facility]
[2024-12-14 10:05] LABS: Bedside Glucose 170 mg/dL (74-106)
[2024-12-14] MEDS: Ipratropium/Albuterol Sulfate 3 ML AMPUL.NEB INHALATION ×2 (14:14→21:23)
[2024-12-14] MEDS: Methylprednisolone Sod Succ 40 MG/ML VIAL IV ×2 (15:40→22:46)
[2024-12-14] MEDS: Insulin Lispro 100 UNIT/ML INSULN.PEN 10 UNIT SC (17:08)
[2024-12-14 17:32] LABS: Bedside Glucose 272 mg/dL (74-106)
[2024-12-14] MEDS: Acetaminophen 325 MG Tablet 650 MG PO (18:44)
--- NOTE | 2024-12-14 19:13 | HP.PCM.HOS_ITS ---
HPI - General General Date of Admission: 12/14/24 Date of Service: 12/14/24 Chief Complaint: Shortness of breath HPI Narrative DESIREE ROSAS, is a 89 M who presents to the emergency room at [facility] with complaints of cough and shortness of breath. Patient states that last he started feeling ill, patient denies any chills or fever, he denies any dysuria. Patient states that shortness of breath worsened today and he came to the emergency room for evaluation. Patient at one time was on home oxygen but this was removed last year due to the fact the patient did not need it any longer. Workup in the emergency room included a CBC which showed a normal white blood cell count, hemoglobin was 11.2, creatinine was 2.2, BUN was 48, chest x-ray was obtained that showed cardiomegaly with mild congestion, PCR was positive for influenza A. Patient was given aerosol treatments and required 1 to 2 L of nasal cannula oxygen to maintain a pulse ox above 90%. Patient will be admitted to [place] [address] for exacerbation of COPD from influenza A, he will be treated with aerosol treatments and IV corticosteroids. Patient is out of the window for Tamiflu administration at this time. Pulse ox will be monitored. [facility] Medical History Complicated urinary tract infection Colonic mass Controlled type 2 diabetes mellitus Acute respiratory insufficiency Chronic anemia Bilateral edema of lower extremity Urinary tract infection Urinary retention Chronic kidney disease Fatigue Pleural effusion (HFpEF) heart failure with preserved ejection fraction Pneumonia Colon polyp Lightheadedness Chronic constipation Anemia Obstructive sleep apnea Coronary artery disease Gastroesophageal reflux disease Allergic rhinitis Hyperlipidemia Urinary retention Wears hearing aid Wears dentures Wears glasses Cancer History of steroid therapy Ambulates with cane Walker as ambulation aid Arthritis Kidney stone Easy bruising Back pain Injury of back History of hiatal hernia Former smoker BiPAP (biphasic positive airway pressure) dependence Asthma Hoarseness Chronic cough Leg cramps History of pain when walking History of stress test History of heart attack History of irregular heartbeat Recurrent urinary tract infection ALMEIDA (dyspnea on exertion) Chest pain Right leg swelling Patellar bursitis of right knee Asthma-COPD overlap syndrome Abdominal aortic aneurysm (AAA) Peripheral vascular disease of extremity with claudication Rectus sheath hematoma Pre-syncope Essential (primary) hypertension Restless legs syndrome Daytime hypersomnia Somatic dysfunction of pelvic region DDD (degenerative disc disease), lumbar Overweight Seasonal allergies Carotid bruit Atherosclerotic heart disease of viejas coronary artery without angina pectoris PVD (peripheral vascular disease) COPD (chronic obstructive pulmonary disease) Home Medications ?Medication ?Instructions ?Recorded ?Last Taken ?Type handicap placcard #1 ea 09/28/19 Unknown Rx ascorbate calcium (vitamin C) 500 500 mg PO DAILY Bone strength 05/03/20 06/28/24 History mg tablet coenzyme Q10 100 mg capsule (Co 100 mg PO DAILY supple ment 05/03/20 06/28/24 History Q-10) cholecalciferol (vitamin D3) 100 100 mcg PO DAILY supp lement 11/03/20 06/28/24 History mcg (4,000 unit) tablet spacer #1 ea 01/12/21 Unknown Rx lancets #180 ea 07/18/23 Unknown Rx hydralazine 100 mg tablet 100 mg PO BID hypertension # 180 12/26/23 06/28/24 Rx tabs albuterol sulfate 90 mcg/actuation 2 inh inhalation Q4 H PRN shortness 01/01/24 Unknown Rx aerosol inhaler (Ventolin HFA) of breath or wheezing # 18 grams ropinirole 1 mg tablet 1 mg PO QHS restless leg #90 tabs 03/23/24 06/27/24 Rx lactulose 20 gram/30 mL oral 20 g PO BID PRN constipat ion 05/01/24 Unknown History solution montelukast 10 mg tablet 10 mg PO QHS Respiratory #90 tabs 05/04/24 06/27/24 Rx atorvastatin 40 mg tablet 40 mg PO QODAY cholesterol # 45 tabs 05/13/24 06/27/24 Rx tamsulosin 0.4 mg capsule 0.4 mg PO QDAY 06/01/24/10/30 History finasteride 5 mg tablet 5 mg PO DAILY 06/28/24 Unkno wn History nitroglycerin 0.4 mg sublingual 0.4 mg sublingual Q5-1 5M PRN chest 07/29/24 Unknown Rx tablet (Nitrostat) pain #25 tabs ranolazine 500 mg tablet,extended 500 mg PO BID #180 t abs 07/29/24 Unknown Rx release,12 hr blood sugar diagnostic (OneTouch #180 ea 08/03/24 Unkn own Rx Ultra Test strips) insulin glargine-yfgn 100 unit/mL 22 unit (0.22 mL) ly bcut DAILY #15 09/16/24 Unknown Rx (3 mL) subcutaneous pen (Semglee mL (insulin glargine-yfgn) Pen) loratadine 10 mg tablet 10 mg PO DAILY allergys #90 tabs 10/05/24 Unknown Rx insulin aspart U-100 100 unit/mL 10 unit (0.1 mL) subc ut TID #15 mL 10/07/24 Unknown Rx subcutaneous cartridge (Novolog PenFill U-100 Insulin aspart) handicap placard #1 ea 10/12/24 Unknown Rx budesonide-formoterol HFA 160 2 puff inhalation BID co pd #3 ea 10/16/24 Unknown Rx mcg-4.5 mcg/actuation aerosol inhaler (Symbicort) pen needle, diabetic 31 gauge x #100 ea 10/23/24 Unkno wn Rx 1/4 (Unifine Pentips) ipratropium 0.5 mg-albuterol 3 mg 3 ml inhalation .COM PLEX SOB &/OR 11/05/24 Unknown Rx (2.5 mg base)/3 mL nebulization WHEEZING #180 mL soln furosemide 40 mg tablet 20 mg PO BID chf 11/30/24 Un known History pantoprazole 40 mg tablet,delayed 40 mg PO DAILY reflu x #90 tabs 11/30/24 Unknown Rx release apixaban 2.5 mg tablet (Eliquis) 2.5 mg PO BID atrial fibrillation 12/14/24 Unknown Rx #180 tabs aspirin 81 mg tablet,delayed 81 mg PO DAILY 12/14/24 U nknown History release (Adult Low Dose Aspirin) docusate sodium 100 mg capsule 100 mg PO DAILY PRN con stipation 12/14/24 Unknown History (Colace) ipratropium bromide 21 mcg (0.03 2 spray intranasal BI D 12/14/24 Unknown History %) nasal spray Allergy/AdvReac Type Severity Reaction Status Date / Time cilostazol (From Pletal) Allergy Unknown Verified 11/30/24 14:14 felodipine Allergy Hives Verified 11/30/24 14:14 levofloxacin Allergy Hives Verified 11/30/24 14:14 Sulfa (Sulfonamide Allergy Unknown Verified 11/30/24 14:14 Antibiotics) isosorbide AdvReac Intermediate low BP Verified 11/30/24 14:14 Family History Father Diabetes Cancer Prostate cancer Mother Dementia Brother Parkinsons Brother Cancer Surgical History History of surgical procedure H/O vascular surgery History of surgical procedure History of transurethral resection of prostate History of endarterectomy (07/2018) History of left heart catheterization (03/2014) History of coronary artery stent placement (02/17/08) History of vascular surgery (08/2018) History of hernia repair H/O aortic aneurysm repair (11/1998) Social History household members: spouse 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 status: retired current occupation: [employer] Smoking Status: Former smoker quit date: 08/07/08 pack-years: 2 Tobacco: How many years used: 52 Electronic Cigarette Use: not used how long ago did patient quit smokin years ago alcohol intake: current alcohol intake frequency: holidays/special occasions only details: hx of alcohol abuse substance use type: does not use caffeine: No what type of physical activity do you participate in: other details: Nustep frequency: 5-6 times per week duration: 15-30 minutes/day seatbelt use: always do you feel safe at home: Yes ROS Constitutional Constitutional: Denies anorexia, change in weight, chills, fatigue, fever(s), malaise, night sweats or weakness Eyes Eyes: Denies blurry vision, change in vision, discharge from eye(s) or eye pain Cardiovascular Cardiovascular: Reports dyspnea on exertion; Denies chest pain, claudication, edema or palpitations Respiratory/Chest Respiratory/Chest: Reports cough, shortness of breath at rest, shortness of breath with exertion and wheezing; Denies hemoptysis Gastrointestinal Gastrointestinal: Denies abdominal pain, constipation, diarrhea, hematemesis, hematochezia, melena, nausea or vomiting Genitourinary Genitourinary: Denies dysuria, hematuria, urinary frequency, urinary hesitancy, urinary incontinence or urinary urgency Musculoskeletal Musculoskeletal: Denies back pain, joint pain, joint stiffness, joint swelling, myalgias or neck pain Neurologic Neurologic: Denies abnormal gait, abnormal speech, dizziness, focal weakness, headache(s), loss of vision, numbness, other visual disturbances, paresthesias, syncope or tingling Psychiatric Psychiatric: Denies anxiety, cognitive impairment, depression, irritability, mood swings or suicidal ideation Endocrine Endocrinology: Denies change in body appearance, cold intolerance, excessive sweating, heat intolerance, polydipsia or polyuria Hematologic/Lymphatic Hematologic/Lymphatic: Denies none, anemia, easy bleeding, easy bruising or lymphadenopathy Allergic/Immunologic Allergic/Immunologic: Denies rhinitis, urticaria, eczemia or asthma Vital Signs Vital Signs Vital Signs: 12/14/24 08:20 12/14/24 08:24 12/14/24 08:45 Temperature 98.1 F Temperature Source Oral Pulse Rate 79 Respiratory Rate 19 H Respiratory Effort Short of Breath Respiratory Depth Respiratory Pattern Blood Pressure 160/76 H Blood Pressure Mean 104 Blood Pressure Source Blood Pressure Position Blood Pressure Location Pulse Ox 95 87 Oxygen Delivery Method Room Air Room Air Oxygen Flow Rate (L/min) 12/14/24 08:56 12/14/24 09:38 12/14/24 11:00 Temperature Temperature Source Pulse Rate 78 Respiratory Rate 22 H Respiratory Effort Respiratory Depth Respiratory Pattern Blood Pressure 160/77 H Blood Pressure Mean 104 Blood Pressure Source Blood Pressure Position Blood Pressure Location Pulse Ox 95 98 95 Oxygen Delivery Method Nasal Cannula Nasal Cannula Nasal Cannula Oxygen Flow Rate (L/min) 1 1 2 12/14/24 11:25 12/14/24 11:25 12/14/24 11:47 Temperature 98.2 F Temperature Source Pulse Rate 81 78 Respiratory Rate 26 H 22 H Respiratory Effort Respiratory Depth Respiratory Pattern Blood Pressure 169/81 H Blood Pressure Mean 110 Blood Pressure Source Blood Pressure Position Blood Pressure Location Pulse Ox 95 95 Oxygen Delivery Method Nasal Cannula Oxygen Flow Rate (L/min) 2 12/14/24 12:33 12/14/24 13:10 12/14/24 14:14 Temperature 98.9 F Temperature Source Oral Pulse Rate 68 85 Respiratory Rate 18 18 20 H Respiratory Effort Normal Non-Labored Short of Breath Respiratory Depth Normal Respiratory Pattern Tachypnea Tachypnea Blood Pressure 156/74 H Blood Pressure Mean 101 Blood Pressure Source Monitor Blood Pressure Position Semi-Fowlers Blood Pressure Location Right Arm Pulse Ox 95 Oxygen Delivery Method Nasal Cannula Nasal Cannula Oxygen Flow Rate (L/min) 2 3 12/14/24 17:11 Temperature 98.2 F Temperature Source Oral Pulse Rate 84 Respiratory Rate 18 Respiratory Effort Respiratory Depth Respiratory Pattern Blood Pressure 180/92 H Blood Pressure Mean 121 Blood Pressure Source Monitor Blood Pressure Position Semi-Fowlers Blood Pressure Location Right Arm Pulse Ox 95 Oxygen Delivery Method Nasal Cannula Oxygen Flow Rate (L/min) 3 Weight Weight: 92.986 kg Body Mass Index (BMI) 33.0 Physical Exam Const alert, oriented x3, no apparent distress and average body habitus General Appearance: cooperative, well kempt and well developed Orientation / Consciousness: awake, oriented to person, oriented to place and oriented to time HEENT normocephalic, head/scalp atraumatic and moist oral mucous membranes Eyes PERRL, EOMs intact bilaterally and conjunctivae normal Neck supple, no JVD, thyroid normal and no carotid bruits General: trachea midline Resp normal respiratory effort Resp Narrative: Expiratory wheezes are scattered over all lung lynn Auscultation: Negative for rales, rhonchi or wheezes Cardio S1 normal heart sound, S2 normal heart sound, no rub and no gallops Cardio Narrative: Heart rate and rhythm is irregular GI normal to inspection, nondistended, normoactive bowel sounds, soft to palpation, non-tender and non-distended Extremity no clubbing, cyanosis or edema Skin no rashes or lesions noted General Skin Exam: no breakdown Neuro oriented x3, CN's II-XII intact bilaterally, no focal motor deficits and no sensory deficits noted Sensorium / Orientation: awake and alert Speech: speech normal Psych affect normal Results Lab / Micro Data 12/14/24 08:28 12/14/24 08:28 Labs: Laboratory Results - last 24 hr 12/14/24 08:28: WBC 5.9, RBC 3.21 L, Hgb 11.2 L, Hct 31.5 L, MCV 98.1 H, MCH 34.9 H, MCHC 35.6, RDW Std Deviation 45.8 H, RDW Coeff of Justin 13.8, Plt Count 189, MPV 10.5, Immature Gran % (Auto) 0.700, Neut % (Auto) 74.3 H, Lymph % (Auto) 17.9 L, [place] % (Auto) 6.6, Eos % (Auto) 0.3, Baso % (Auto) 0.2, Absolute Neuts (auto) 4.4, Absolute Lymphs (auto) 1.06, Nucleated RBC % 0, Sodium 137, Potassium 3.3, Chloride 91 L, Carbon Dioxide 30.6, Anion Gap 16 H, BUN 48 H, C reatinine 2.22 H, Estim Creat Clear Calc 25.77 L, Est GFR (MDRD) Non-Af 28 L, B UN/Creatinine Ratio 21.6 H, Glucose 140 H, Calcium 8.7 12/14/24 09:46: POC Glucose 170 H 12/14/24 17:07: POC Glucose 272 H Micro: Microbiology 12/14/24 09:06 Mucosa - Nose SARS-CoV-2, Influenza & RSV (PCR) - Final Influenzae A ABG Data ABG results: ABG 12/14/24 09:33 Specimen Type YURY Sample Site Not entered O2 % 1.0 VBG pH 7.47 H VBG pO2 34 VBG HCO3 33 H VBG Total CO2 35 H VBG O2 Sat (Calc) 69 VBG Base Excess 10 H POC Mix VBG pCO2 Pt Tmp 45.6 O2 Delivery Device Cannula Imaging Radiology Impression Chest X-Ray 12/14/24 10:00 IMPRESSION: Cardiomegaly with mild congestion. Reading [facility] Assessment & Plan Assessment/Plan (1) Asthma-COPD overlap syndrome: PLAN: Plan 1. Exacerbation of COPD secondary to influenza A infection-patient will be admitted to [facility] 3, aerosol treatments will be administered, patient will be placed on IV corticosteroids #2 hypoxia secondary to #1-patient's pulse ox will be monitored, oxygen will be weaned if possible #3 chronic atrial fibrillation-patient is on anticoagulation, he is not on any rate control medication #4 type 2 diabetes-patient will be placed on sliding scale insulin and will continue with his home insulin #5 atherosclerotic heart disease-patient is on aspirin and statin Total clinical time spent by myself addressing the patient's medical issues, reviewing all of his data, and collaborating with patient's care team: 75 minutes Charges/Coding Visit Charges Inpatient E&M: 12672 Init Hosp L3
--- NOTE | 2024-12-14 20:29 | CASEMGMT ---
Care Management Face to Face with patient for initial transition planning/care coordination assessment in the ED.? This typewriter mechanic introduced self and role at [facility]. Patient alert and oriented. Patient willing to participate in assessment and is able to answer all questions appropriately.? Care providers, pharmacy, and demographics verified. Admitting Diagnosis: Asthma/COPD Other diagnosis history: Diabetes, CKD, hypertension, DDD, PVD PCP: ?[facility] Specialists: kinza Painter basali [facility] Insurance: [employer] Prescription Benefit: yes Living Will/HPOA: ?yes LNOK: Living Arrangements: Lives with in 1.5 story home, 3 steps to enter? Patient reports to being independent with ADLs and IADLs Transportation: drives DME: cane, walker, rollator, shower bench, grab bars, pulse ox, blood pressure cuff HHC: none SNF/Rehab: none Community Resources: none Behavioral Health History: none Patient goals: Patient wishes to discharge home, denies need for home health care at this time. Patient denies any further needs or concerns at this time. Disposition Plan: admission to acute; RN CM/SW to follow for discharge planning needs that may arise. Candy Hudson, COLLAR SEWER, SALON CUSTOMER EXPERIENCE SPECIALIST
[2024-12-14] MEDS: Ranolazine 500 MG Tablet PO (22:46)
[2024-12-14] MEDS: hydrALAZINE 50 MG Tablet 100 MG PO (22:46)
[2024-12-14] MEDS: APIXABAN 2.5 MG TABLET (WCH) PO (22:46)
[2024-12-14] MEDS: Montelukast 10 MG Tablet PO (22:46)
[2024-12-14] MEDS: Pramipexole Di-HCl 0.5 MG Tablet PO (22:46)
[2024-12-14] MEDS: Insulin Lispro 100 UNIT/ML INSULN.PEN SC (22:47)
[2024-12-14 23:13] LABS: Bedside Glucose 266 mg/dL (74-106)
[2024-12-15] VITALS (10 sets, daily range): BP systolic 155–165; BP diastolic 75–88; PULSE 69–90; RESP 18–20; TEMP 36.4–36.8; O2SAT 92–98
[2024-12-15] MEDS: 0.9% Saline Lock 10 ML Syringe IV ×3 (06:06→22:45)
[2024-12-15] MEDS: Methylprednisolone Sod Succ 40 MG/ML VIAL IV ×3 (06:06→22:40)
[2024-12-15] MEDS: Ipratropium/Albuterol Sulfate 3 ML AMPUL.NEB INHALATION ×4 (07:18→19:11)
[2024-12-15] MEDS: hydrALAZINE 50 MG Tablet 100 MG PO ×2 (08:09→22:39)
[2024-12-15] MEDS: Pantoprazole Sodium 40 MG Tablet PO (08:09)
[2024-12-15] MEDS: Aspirin E.C. 81 MG Tablet PO (08:11)
[2024-12-15] MEDS: Acetaminophen 325 MG Tablet 650 MG PO ×2 (08:12→14:09)
[2024-12-15] MEDS: Insulin Lispro 100 UNIT/ML INSULN.PEN 10 UNIT SC ×2 (08:13→11:05)
[2024-12-15] MEDS: Insulin Lispro 100 UNIT/ML INSULN.PEN SC ×3 (08:14→22:41)
[2024-12-15 08:35] LABS: Bedside Glucose 232 mg/dL (74-106)
[2024-12-15] MEDS: Insulin Glargine-YFGN 100 UNIT/ML Pen 22 UNIT SC (10:57)
[2024-12-15] MEDS: Finasteride 5 MG Tablet PO (11:03)
[2024-12-15] MEDS: APIXABAN 2.5 MG TABLET (WCH) PO ×2 (11:03→22:39)
[2024-12-15] MEDS: Ranolazine 500 MG Tablet PO ×2 (11:03→22:39)
[2024-12-15] MEDS: Tamsulosin HCl 0.4 MG Capsule PO (11:03)
[2024-12-15 11:30] LABS: Bedside Glucose 262 mg/dL (74-106)
[2024-12-15 12:56] LABS: Bedside Glucose 186 mg/dL (74-106)
[2024-12-15 17:02] LABS: Bedside Glucose 119 mg/dL (74-106)
--- NOTE | 2024-12-15 19:55 | PCM.PN.HOSP ---
Reason for Visit Reason for Visit: Diagnoses Chronic obstructive pulmonary disease, unspecified (12/14/24) Subjective Subjective Patient was seen and examined today, his was in the room at the time my examination, I discussed with him the fact that he cannot take ibuprofen or Aleve or aspirin along with his Eliquis. tells me that he ignores this and takes ibuprofen anyway. Patient is currently on 2 L of oxygen via nasal cannula Objective Data Objective Data Vital Signs: Vital Signs Temp Pulse Resp BP Pulse Ox O2 Del Method O2 Flow Rate 97.5 F L 80 18 155/79 H 96 Nasal Cannula 2 12/15/24 14:44 12/15/24 19:13 12/15/24 19:13 12/15/24 14:44 12/15/24 19:13 12/15/24 19:13 12/15/24 19:13 Oxygen Flow Rate (L/min) 2 Oxygen Delivery Method Nasal Cannula Weight: 92.986 kg Body Mass Index (BMI) 33.0 Intake & Output: Intake and Output for Last 24 Hours 12/14/24 12/14/24 12/15/24 00:59 23:59 23:59 Intake Total 900 / 900 850 / 850 Output Total 600 / 1000 1000 / 1000 Balance 300 / -100 -150 / -150 Lab / Micro Data 12/14/24 08:28 12/14/24 08:28 Labs: Laboratory Results - last 24 hr 12/14/24 22:43: POC Glucose 266 H 12/15/24 07:54: POC Glucose 232 H 12/15/24 10:55: POC Glucose 262 H 12/15/24 12:38: POC Glucose 186 H 12/15/24 16:33: POC Glucose 119 H Micro: Microbiology 12/14/24 09:06 Mucosa - Nose SARS-CoV-2, Influenza & RSV (PCR) - Final Influenzae A Physical Exam Narrative alert, oriented x3, no apparent distress and average body habitus General Appearance: cooperative, well kempt and well developed Orientation / Consciousness: awake, oriented to person, oriented to place and oriented to time HEENT normocephalic, head/scalp atraumatic and moist oral mucous membranes Eyes PERRL, EOMs intact bilaterally and conjunctivae normal Neck supple, no JVD, thyroid normal and no carotid bruits General: trachea midline Resp normal respiratory effort Resp Narrative: Expiratory wheezes are scattered over all lung lynn Auscultation: Negative for rales, rhonchi or wheezes Cardio S1 normal heart sound, S2 normal heart sound, no rub and no gallops Cardio Narrative: Heart rate and rhythm is irregular GI normal to inspection, nondistended, normoactive bowel sounds, soft to palpation, non-tender and non-distended Extremity no clubbing, cyanosis or edema Skin no rashes or lesions noted General Skin Exam: no breakdown Neuro oriented x3, CN's II-XII intact bilaterally, no focal motor deficits and no sensory deficits noted Sensorium / Orientation: awake and alert Speech: speech normal Psych affect normal Assessment & Plan Assessment/Plan (1) Asthma-COPD overlap syndrome: PLAN: Plan 1. Exacerbation of COPD secondary to influenza A infection-continue present treatment including aerosol treatments and IV corticosteroids #2 hypoxia secondary to #1-patient's pulse ox will be monitored, oxygen will be weaned if possible #3 chronic atrial fibrillation-patient is on anticoagulation, he is not on any rate control medication #4 type 2 diabetes-patient will be placed on sliding scale insulin and will continue with his home insulin #5 atherosclerotic heart disease-patient is on aspirin and statin Total clinical time spent by myself addressing the patient's medical issues, reviewing all of his data, and collaborating with patient's care team: 35 minutes Charges/Coding Visit Charges Inpatient E&M: 99207 Subs Hosp L2
[2024-12-15] MEDS: Montelukast 10 MG Tablet PO (22:39)
[2024-12-15] MEDS: Pramipexole Di-HCl 0.5 MG Tablet PO (22:39)
[2024-12-15 23:45] LABS: Bedside Glucose 258 mg/dL (74-106)
[2024-12-16] VITALS (11 sets, daily range): BP systolic 158–174; BP diastolic 78–93; PULSE 71–87; RESP 18–20; TEMP 36.3–36.9; O2SAT 88–98
[2024-12-16] MEDS: 0.9% Saline Lock 10 ML Syringe IV ×3 (05:42→14:27)
[2024-12-16] MEDS: Methylprednisolone Sod Succ 40 MG/ML VIAL IV ×3 (05:43→22:25)
[2024-12-16] MEDS: Ipratropium/Albuterol Sulfate 3 ML AMPUL.NEB INHALATION ×4 (07:36→20:18)
[2024-12-16] MEDS: hydrALAZINE 50 MG Tablet 100 MG PO ×2 (08:20→22:59)
[2024-12-16] MEDS: Finasteride 5 MG Tablet PO (08:21)
[2024-12-16] MEDS: Pantoprazole Sodium 40 MG Tablet PO (08:21)
[2024-12-16] MEDS: Tamsulosin HCl 0.4 MG Capsule PO (08:21)
[2024-12-16] MEDS: Insulin Lispro 100 UNIT/ML INSULN.PEN 10 UNIT SC ×3 (08:21→16:47)
[2024-12-16] MEDS: Aspirin E.C. 81 MG Tablet PO (08:21)
[2024-12-16] MEDS: APIXABAN 2.5 MG TABLET (WCH) PO ×2 (08:21→22:57)
[2024-12-16] MEDS: Ranolazine 500 MG Tablet PO ×2 (08:21→22:58)
[2024-12-16] MEDS: Insulin Glargine-YFGN 100 UNIT/ML Pen 22 UNIT SC (08:22)
[2024-12-16] MEDS: Insulin Lispro 100 UNIT/ML INSULN.PEN SC ×3 (08:22→22:59)
[2024-12-16 08:27] LABS: Bedside Glucose 229 mg/dL (74-106)
[2024-12-16] MEDS: Furosemide 40 MG/4 ML Vial IV (11:48)
[2024-12-16 12:12] LABS: Bedside Glucose 200 mg/dL (74-106)
[2024-12-16] MEDS: Furosemide 40 MG Tablet PO (16:47)
[2024-12-16 17:07] LABS: Bedside Glucose 140 mg/dL (74-106)
--- NOTE | 2024-12-16 17:40 | PCM.PN.HOSP ---
Reason for Visit Reason for Visit: Diagnoses Chronic obstructive pulmonary disease, unspecified (12/14/24) Subjective Subjective Patient was seen and examined today, I elected to restart the patient's diuretics which she takes at home. Patient is still exhibiting severe dyspnea when walking. Objective Data Objective Data Vital Signs: Vital Signs Temp Pulse Resp BP Pulse Ox O2 Del Method O2 Flow Rate 97.6 F L 78 18 158/79 H 96 Nasal Cannula 2 12/16/24 14:22 12/16/24 15:32 12/16/24 15:32 12/16/24 14:22 12/16/24 14:22 12/16/24 14:22 12/16/24 14:22 Oxygen Flow Rate (L/min) 2 Oxygen Delivery Method Nasal Cannula Weight: 92.986 kg Body Mass Index (BMI) 33.0 Intake & Output: Intake and Output for Last 24 Hours 12/14/24 12/15/24 12/16/24 23:59 23:59 23:59 Intake Total 900 / 900 850 / 850 400 / 400 Output Total 600 / 1000 1000 / 1000 575 / 575 Balance 300 / -100 -150 / -150 -175 / -175 Lab / Micro Data 12/14/24 08:28 12/14/24 08:28 Labs: Laboratory Results - last 24 hr 12/15/24 22:37: POC Glucose 258 H 12/16/24 07:54: POC Glucose 229 H 12/16/24 11:44: POC Glucose 200 H 12/16/24 16:42: POC Glucose 140 H Micro: Microbiology 12/14/24 09:06 Mucosa - Nose SARS-CoV-2, Influenza & RSV (PCR) - Final Influenzae A Physical Exam Narrative alert, oriented x3, no apparent distress and average body habitus General Appearance: cooperative, well kempt and well developed Orientation / Consciousness: awake, oriented to person, oriented to place and oriented to time HEENT normocephalic, head/scalp atraumatic and moist oral mucous membranes Eyes PERRL, EOMs intact bilaterally and conjunctivae normal Neck supple, no JVD, thyroid normal and no carotid bruits General: trachea midline Resp normal respiratory effort Resp Narrative: Expiratory wheezes are scattered over all lung lynn Auscultation: Negative for rales, rhonchi or wheezes Cardio S1 normal heart sound, S2 normal heart sound, no rub and no gallops Cardio Narrative: Heart rate and rhythm is irregular GI normal to inspection, nondistended, normoactive bowel sounds, soft to palpation, non-tender and non-distended Extremity no clubbing, cyanosis or edema Skin no rashes or lesions noted General Skin Exam: no breakdown Neuro oriented x3, CN's II-XII intact bilaterally, no focal motor deficits and no sensory deficits noted Sensorium / Orientation: awake and alert Speech: speech normal Psych affect normal Assessment & Plan Assessment/Plan (1) Asthma-COPD overlap syndrome: PLAN: Plan 1. 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
[2024-12-16] MEDS: Atorvastatin Calcium 40 MG Tablet PO (22:57)
[2024-12-16] MEDS: Pramipexole Di-HCl 0.5 MG Tablet PO (22:57)
[2024-12-16] MEDS: Montelukast 10 MG Tablet PO (22:57)
[2024-12-16 23:35] LABS: Bedside Glucose 157 mg/dL (74-106)
[2024-12-17 04:54] VITALS: BP 158/69; PULSE 68; RESP 18; TEMP 36.4; O2SAT 96
[2024-12-17 05:19] VITALS: O2SAT 90; O2SAT 94
[2024-12-17] MEDS: 0.9% Saline Lock 10 ML Syringe IV (05:20)
[2024-12-17] MEDS: Methylprednisolone Sod Succ 40 MG/ML VIAL IV (05:21)
[2024-12-17 08:08] VITALS: BP 159/67; PULSE 64; RESP 18; TEMP 36.3; O2SAT 94
[2024-12-17 08:12] LABS: Bedside Glucose 181 mg/dL (74-106)
[2024-12-17 08:17] VITALS: PULSE 64
[2024-12-17] MEDS: hydrALAZINE 50 MG Tablet 100 MG PO (08:17)
[2024-12-17] MEDS: Pantoprazole Sodium 40 MG Tablet PO (08:17)
[2024-12-17] MEDS: Aspirin E.C. 81 MG Tablet PO (08:17)
[2024-12-17] MEDS: Tamsulosin HCl 0.4 MG Capsule PO (08:17)
[2024-12-17] MEDS: Ranolazine 500 MG Tablet PO (08:17)
[2024-12-17] MEDS: Furosemide 40 MG Tablet PO (08:17)
[2024-12-17] MEDS: Finasteride 5 MG Tablet PO (08:18)
[2024-12-17] MEDS: APIXABAN 2.5 MG TABLET (WCH) PO (08:18)
[2024-12-17] MEDS: Insulin Lispro 100 UNIT/ML INSULN.PEN SC ×2 (08:19→11:30)
[2024-12-17] MEDS: Insulin Lispro 100 UNIT/ML INSULN.PEN 10 UNIT SC ×2 (08:19→11:29)
[2024-12-17 09:10] LABS: Anion Gap 14 (5-15); BUN 50 mg/dL (4-19); BUN/Creat Ratio 28.5 RATIO (10-20); Calcium,Total 9.3 mg/dL (7.6-11.0); Carbon Dioxide 29.5 mmol/L (21.0-32.0); Chloride 94 mmol/L (98-108); Creatinine, Serum 1.76 mg/dL (0.70-1.20); EST Glomerular Filtration Rate 37 (>60); Estimated Creatinine Clearance 31.57 ml/min (50-250); Glucose 167 mg/dL (70-99); Potassium 3.9 mmol/L (3.3-5.1); Sodium Level 137 mmol/L (133-145)
[2024-12-17 11:14] VITALS: PULSE 71; RESP 18
[2024-12-17] MEDS: Ipratropium/Albuterol Sulfate 3 ML AMPUL.NEB INHALATION (11:14)
[2024-12-17 11:51] LABS: Bedside Glucose 151 mg/dL (74-106)
--- NOTE | 2024-12-17 12:10 | PCM.DC ---
Discharge Instructions Diet Discharge Diet: No restrictions DC O2, CPAP, BIPAP needs Home O2 Discharge instructions: No Dressing / Incision Discharge Activity: Return to Normal Activity Weight Bearing Status: Full weight bearing Follow Up Care Test Results: Test results from this visit will be discussed in further detail at your follow-up appointment, if applicable. Discharge Plan Admission Admit Date/Time: 12/14/24 11:48 Primary Reason for Your Visit: Exacerbation of COPD Attending Provider: Inocencio Perkins Primary Care Provider: Carolynn Whitman Discharge Orders/Prescriptions Prescriptions: New torsemide 20 mg tablet 20 mg PO UD Qty: 90 0RF Rx Instructions: Take 1-1/2 tabs twice a day prednisone 20 mg tablet 40 mg PO DAILY Qty: 10 0RF Continued (DME) handicap placcard Qty: 1 0RF Rx Instructions: Lifetime: debility coenzyme Q10 [Co Q-10] 100 mg capsule 100 mg PO DAILY ascorbate calcium (vitamin C) 500 mg tablet 500 mg PO DAILY cholecalciferol (vitamin D3) 100 mcg (4,000 unit) tablet 100 mcg PO DAILY (DME) spacer See Rx Instructions .ROUTE .MEDSUPPLY Qty: 1 0RF [facility] Inst[facility] .Route Qty: 180 1RF Rx Instructions: twice daily hydralazine 100 mg tablet 100 mg PO BID Qty: 180 3RF ropinirole 1 mg tablet 1 mg PO QHS Qty: 90 3RF Rx Instructions: administer 1-3 hours before bedtime albuterol sulfate [Ventolin HFA] 90 mcg/actuation HFA aerosol inhaler 2 inh INHALATION Q4H PRN (Reason: shortness of breath or wheezing) Qty: 18 6RF lactulose 20 gram/30 mL solution 20 g PO BID PRN (Reason: constipation) Patient Comments: pt states he takes it sometimes daily Rx Instructions: 30 ml once or twice daily for constipation tamsulosin 0.4 mg capsule 0.4 mg PO QDAY Patient Comments: PT TAKES SOMETIMES pantoprazole 40 mg tablet,delayed release (DR/EC) 40 mg PO DAILY Qty: 90 1RF finasteride 5 mg tablet 5 mg PO DAILY ipratropium bromide 21 mcg (0.03 %) spray,non-aerosol 2 spray intranasal BID Rx Instructions: administer into each nostril aspirin [Adult Low Dose Aspirin] 81 mg tablet,delayed release (DR/EC) 81 mg PO DAILY docusate sodium [Colace] 100 mg capsule 100 mg PO DAILY PRN (Reason: constipation) montelukast 10 mg tablet 10 mg PO QHS Qty: 90 3RF atorvastatin 40 mg tablet 40 mg PO QODAY Qty: 45 3RF Patient Comments: PT TAKES IN EVENING ranolazine 500 mg tablet extended release 12 hr 500 mg PO BID Qty: 180 3RF nitroglycerin [Nitrostat] 0.4 mg tablet, sublingual 0.4 mg SUBLINGUAL Q5-15M PRN (Reason: chest pain) Qty: 25 2RF (DME) OneTouch Ultra Test Strip See Rx Instructions .Route Qty: 180 1RF Rx Instructions: Check three to four times a day. insulin glargine-yfgn [Semglee(insulin glarg-yfgn)Pen] 100 unit/mL (3 mL) insulin pen 22 unit subcut DAILY Qty: 15 1RF loratadine 10 mg tablet 10 mg PO DAILY Qty: 90 0RF insulin aspart U-100 [Novolog PenFill U-100 Insulin] 100 unit/mL cartridge 10 unit subcut TID Qty: 15 1RF Rx Instructions: hold if glucose is under 130 (DME) handicap placard See Rx Instructions .ROUTE .MEDSUPPLY Qty: 1 0RF Rx Instructions: Length of time: 5 years Diganosis: Impaired physical mobility budesonide-formoterol [Symbicort] 160-4.5 mcg/actuation HFA aerosol inhaler 2 puff inhalation BID Qty: 3 3RF Rx Instructions: administer with spacer, rinse mouth after each use (DME) pen needle, diabetic [Unifine Pentips] 31 gauge x 1/4 needle See Rx Instructions .ROUTE .COMPLEX Qty: 100 1RF Dose Instruction: use 3 TO 4 needles daily Rx Instructions: use 3 TO 4 needles daily ipratropium-albuterol 0.5 mg-3 mg(2.5 mg base)/3 mL solution for nebulization 3 ml inhalation .COMPLEX Qty: 180 11RF Rx Instructions: 3 mL inhaled Q4H WA .RT; Eliquis 2.5 mg tablet 2.5 mg PO BID Qty: 180 4RF Discontinued furosemide 40 mg tablet 20 mg PO BID Rx Instructions: Hold for NARENDRA Referrals / Follow Up: Carolynn Whitman MD [Primary Care Provider] - Within 2 Weeks Disposition Disposition (needs filled in before D/C Order can be placed): Home, Self Care
--- NOTE | 2024-12-17 12:40 | CASEMGMT ---
Addendum entered by Carri Mccray 12/17/24 12:45: Pt did not qualify for home oxygen. Original Note: RN CM into pt room, pt sitting up in bed on RA with at bedside. Pt denies any homegoing needs. Pt states he goes to [facility] typically when he is feeling well. Pt agreed. Plan for pt to dc today.
--- NOTE | 2024-12-17 12:45 | DS.PCM_ITS ---
Providers Date of Admission: 12/14/24 Date of Discharge: 12/17/24 Primary Care Physician: Dr. Carolynn Whitman MD Reason For Visit: EXAC OF COPD, INFLUENZA A Diagnosis Discharge Diagnosis (1) Asthma-COPD overlap syndrome: Status: Chronic Code(s): J44.9 - Chronic obstructive pulmonary disease, unspecified Plan 1. 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 diabetes-BMP will be repeated tomorrow Total clinical time spent by myself addressing the patient's medical issues, reviewing all of his data, and collaborating with patient's care team: 35 minutes Medications at Discharge Home Medications handicap placcard #1 ea 09/28/19 ascorbate calcium (vitamin C) 500 mg tablet 500 mg PO DAILY Bone strength 05/03/20 coenzyme Q10 100 mg capsule (Co Q-10) 100 mg PO DAILY supplement 05/03/20 cholecalciferol (vitamin D3) 100 mcg (4,000 unit) tablet 100 mcg PO DAILY supplement 11/03/20 spacer #1 ea 01/12/21 lancets #180 ea 07/18/23 hydralazine 100 mg tablet 100 mg PO BID hypertension #180 tabs 12/26/23 albuterol sulfate 90 mcg/actuation aerosol inhaler (Ventolin HFA) 2 inh inhalation Q4H PRN shortness of breath or wheezing #18 grams 01/01/24 ropinirole 1 mg tablet 1 mg PO QHS restless leg #90 tabs 03/23/24 lactulose 20 gram/30 mL oral solution 20 g PO BID PRN constipation 05/01/24 montelukast 10 mg tablet 10 mg PO QHS Respiratory #90 tabs 05/04/24 atorvastatin 40 mg tablet 40 mg PO QODAY cholesterol #45 tabs 05/13/24 tamsulosin 0.4 mg capsule 0.4 mg PO QDAY 06/01/24 finasteride 5 mg tablet 5 mg PO DAILY 06/28/24 nitroglycerin 0.4 mg sublingual tablet (Nitrostat) 0.4 mg sublingual Q5-15M PRN chest pain #25 tabs 07/29/24 ranolazine 500 mg tablet,extended release,12 hr 500 mg PO BID #180 tabs 07/29/24 blood sugar diagnostic (OneTouch Ultra Test strips) #180 ea 08/03/24 insulin glargine-yfgn 100 unit/mL (3 mL) subcutaneous pen (Semglee (insulin glargine-yfgn) Pen) 22 unit (0.22 mL) subcut DAILY #15 mL 09/16/24 loratadine 10 mg tablet 10 mg PO DAILY allergys #90 tabs 10/05/24 insulin aspart U-100 100 unit/mL subcutaneous cartridge (Novolog PenFill U-100 Insulin aspart) 10 unit (0.1 mL) subcut TID #15 mL 10/07/24 handicap placard #1 ea 10/12/24 budesonide-formoterol HFA 160 mcg-4.5 mcg/actuation aerosol inhaler (Symbicort) 2 puff inhalation BID copd #3 ea 10/16/24 pen needle, diabetic 31 gauge x 1/4 (Unifine Pentips) #100 ea 10/23/24 ipratropium 0.5 mg-albuterol 3 mg (2.5 mg base)/3 mL nebulization soln 3 ml inhalation .COMPLEX SOB &/OR WHEEZING #180 mL 11/05/24 pantoprazole 40 mg tablet,delayed release 40 mg PO DAILY reflux #90 tabs 11/30/24 apixaban 2.5 mg tablet (Eliquis) 2.5 mg PO BID atrial fibrillation #180 tabs 12/14/24 aspirin 81 mg tablet,delayed release (Adult Low Dose Aspirin) 81 mg PO DAILY 12/14/24 docusate sodium 100 mg capsule (Colace) 100 mg PO DAILY PRN constipation 12/14/24 ipratropium bromide 21 mcg (0.03 %) nasal spray 2 spray intranasal BID 12/14/24 prednisone 20 mg tablet 40 mg (2 x 20 mg) PO DAILY #10 tabs 12/17/24 torsemide 20 mg tablet 20 mg PO UD #90 tabs 12/17/24 Hospital Course Operations None Procedures None Summary of Care Provided Minutes Spent on Discharge: 32 Hospital Course: This 89-year-old white male was seen in the emergency room at [facility] with chief complaint of shortness of breath. Patient denied any fevers or chills. Patient did not have home oxygen. Workup in the ER included a CBC which showed a normal white blood cell count, hemoglobin was 11.2, creatinine was 2.2 and BUN was 48. Chest x-ray was obtained and showed cardiomegaly and mild congestion, PCR was positive for influenza A. Patient was given aerosol treatments and required minimal low-flow nasal cannula oxygen to maintain a pulse ox above 90%. Patient was admitted to [place] [address], he was placed on aerosol treatments and IV corticosteroids. Patient was out of the window for Tamiflu administration. Patient improved gradually during his hospitalization, his Lasix was omitted during the first day he was in the hospital. The Lasix was then restarted and the patient improved after that. On 12/17/2024, patient was seen and examined: On examination he appeared in good health and spirits. Vital signs as documented. Skin warm and dry and without overt rashes. Neck without JVD, neck was supple, trachea midline, thyroid was normal. Lungs clear bilaterally, normal air movement was noted. Heart exam notable for regular rhythm, normal sounds and absence of murmurs, rubs or gallops. Abdomen unremarkable and without evidence of organomegaly, masses, or abdominal aortic enlargement. Bowel sounds are present, abdomen is not distended. Extremities nonedematous, no cyanosis was noted, no clubbing was noted. Neuro: Cranial nerves II through XII are grossly intact, no focal motor deficits were noted, sensation to light touch and pinprick intact, motor exam 5/5 throughout. Psych: Patient is alert and oriented x3, he does not appear anxious or depressed, he does not appear agitated. Patient did not require home O2 at the time of his discharge on 12/17/2024, patient was discharged in stable condition on that date. 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 Weight / BMI Weight Weight: 92.986 kg Body Mass Index (BMI) 33.0 ABG / Lab / Microbiology Data 12/14/24 08:28 12/17/24 05:54 Laboratory: Laboratory Results - last 24 hr 12/16/24 22:57: POC Glucose 157 H 12/17/24 05:54: Sodium 137, Potassium 3.9, Chloride 94 L, Carbon Dioxide 29.5, Anion Gap 14, BUN 50 H, Creatinine 1.76 H, Estim Creat Clear Calc 31.57 L, Est GFR (MDRD) Non-Af 37 L, BUN/Creatinine Ratio 28.5 H, Glucose 167 H, Calcium 9.3 12/17/24 07:54: POC Glucose 181 H 12/17/24 11:29: POC Glucose 151 H Microbiology: Microbiology 12/14/24 09:06 Mucosa - Nose SARS-CoV-2, Influenza & RSV (PCR) - Final Influenzae A D/C Instructions Discharge Diet: No restrictions Weight Bearing Status: Full weight bearing DC O2, CPAP, BIPAP Needs Home O2 Discharge instructions: No Meaningful Use Info Meaningful Use Meaningful Use Diagnoses (Choose all that apply): None applicable Ischemic Stroke Statin Dosing Therapy Reference: STATIN DOSE THERAPY REFERENCE: * Patients > 75 years receive moderate or high dose statin therapy. * Patients 75 years or YOUNGER should receive HIGH intensity statin dose unless contraindicated. You will be required to document reason for non-treatment if statin daily dose does not meet guidelines. HIGH DOSE STATIN THERAPY DAILY Atorvastatin > than or = to 40 mg Rosuvastatin > than or = to 20 mg Amlodipine + Atorvastatin > than or = to 2.5/40 mg Ezetimibe + Simvastatin 10/80 mg Simvastatin 80mg Discharge Plan Admission Admit Date/Time: 12/14/24 11:48 Primary Reason for Your Visit: Exacerbation of COPD Attending Provider: Inocencio Perkins Primary Care Provider: Carolynn Whitman Discharge Orders/Prescriptions Prescriptions: New torsemide 20 mg tablet 20 mg PO UD Qty: 90 0RF Rx Instructions: Take 1-1/2 tabs twice a day prednisone 20 mg tablet 40 mg PO DAILY Qty: 10 0RF Continued (DME) handicap placcard Qty: 1 0RF Rx Instructions: Lifetime: debility coenzyme Q10 [Co Q-10] 100 mg capsule 100 mg PO DAILY ascorbate calcium (vitamin C) 500 mg tablet 500 mg PO DAILY cholecalciferol (vitamin D3) 100 mcg (4,000 unit) tablet 100 mcg PO DAILY (DME) spacer See Rx Instructions .ROUTE .MEDSUPPLY Qty: 1 0RF Rx Instructions: As directed (DME) [facility] [place] Instructions .Route Qty: 180 1RF Rx Instructions: twice daily hydralazine 100 mg tablet 100 mg PO BID Qty: 180 3RF ropinirole 1 mg tablet 1 mg PO QHS Qty: 90 3RF Rx Instructions: administer 1-3 hours before bedtime albuterol sulfate [Ventolin HFA] 90 mcg/actuation HFA aerosol inhaler 2 inh INHALATION Q4H PRN (Reason: shortness of breath or wheezing) Qty: 18 6RF lactulose 20 gram/30 mL solution 20 g PO BID PRN (Reason: constipation) Patient Comments: pt states he takes it sometimes daily Rx Instructions: 30 ml once or twice daily for constipation tamsulosin 0.4 mg capsule 0.4 mg PO QDAY Patient Comments: PT TAKES SOMETIMES pantoprazole 40 mg tablet,delayed release (DR/EC) 40 mg PO DAILY Qty: 90 1RF finasteride 5 mg tablet 5 mg PO DAILY ipratropium bromide 21 mcg (0.03 %) spray,non-aerosol 2 spray intranasal BID Rx Instructions: administer into each nostril aspirin [Adult Low Dose Aspirin] 81 mg tablet,delayed release (DR/EC) 81 mg PO DAILY docusate sodium [Colace] 100 mg capsule 100 mg PO DAILY PRN (Reason: constipation) montelukast 10 mg tablet 10 mg PO QHS Qty: 90 3RF atorvastatin 40 mg tablet 40 mg PO QODAY Qty: 45 3RF Patient Comments: PT TAKES IN EVENING ranolazine 500 mg tablet extended release 12 hr 500 mg PO BID Qty: 180 3RF nitroglycerin [Nitrostat] 0.4 mg tablet, sublingual 0.4 mg SUBLINGUAL Q5-15M PRN (Reason: chest pain) Qty: 25 2RF (DME) OneTouch Ultra Test Strip See Rx Instructions .Route Qty: 180 1RF Rx Instructions: Check three to four times a day. insulin glargine-yfgn [Semglee(insulin glarg-yfgn)Pen] 100 unit/mL (3 mL) insulin pen 22 unit subcut DAILY Qty: 15 1RF loratadine 10 mg tablet 10 mg PO DAILY Qty: 90 0RF insulin aspart U-100 [Novolog PenFill U-100 Insulin] 100 unit/mL cartridge 10 unit subcut TID Qty: 15 1RF Rx Instructions: hold if glucose is under 130 (DME) handicap placard See Rx Instructions .ROUTE .MEDSUPPLY Qty: 1 0RF Rx Instructions: Length of time: 5 years Diganosis: Impaired physical mobility budesonide-formoterol [Symbicort] 160-4.5 mcg/actuation HFA aerosol inhaler 2 puff inhalation BID Qty: 3 3RF Rx Instructions: administer with spacer, rinse mouth after each use (DME) pen needle, diabetic [Unifine Pentips] 31 gauge x 1/4 needle See Rx Instructions .ROUTE .COMPLEX Qty: 100 1RF Dose Instruction: use 3 TO 4 needles daily Rx Instructions: use 3 TO 4 needles daily ipratropium-albuterol 0.5 mg-3 mg(2.5 mg base)/3 mL solution for nebulization 3 ml inhalation .COMPLEX Qty: 180 11RF Rx Instructions: 3 mL inhaled Q4H WA .RT; Eliquis 2.5 mg tablet 2.5 mg PO BID Qty: 180 4RF Discontinued furosemide 40 mg tablet 20 mg PO BID Rx Instructions: Hold for NARENDRA Referrals / Follow Up: Carolynn Whitman MD [Primary Care Provider] - Within 2 Weeks Disposition Disposition (needs filled in before D/C Order can be placed): Home, Self Care Charges/Coding Visit Charges Inpatient E&M: 89943 Disch Hosp >30min
[2024-12-17 13:45] VITALS: BP 139/86; PULSE 72; RESP 20; TEMP 36.3; O2SAT 93
== END 2024-12-17 14:25 | disposition home or self-care (01) | DRG 191 ==
LOC: ED 11:52 → MS3 12:11
PROVIDERS: Admitting Provider Internal Medicine; Emergency Provider Surgery; PCP Internal Medicine; Visit Provider Internal Medicine
DX: J44.1 Chronic obstructive pulmonary disease with (acute) exacerbation (principal); I13.0 Hypertensive heart and chronic kidney disease with heart failure and stage 1 through stage 4 chronic kidney disease, or unspecified chronic kidney disease; I48.20 Chronic atrial fibrillation, unspecified; E11.22 Type 2 diabetes mellitus with diabetic chronic kidney disease; I50.9 Heart failure, unspecified; N18.32 Chronic kidney disease, stage 3b; J44.0 Chronic obstructive pulmonary disease with (acute) lower respiratory infection; J10.1 Influenza due to other identified influenza virus with other respiratory manifestations; E78.5 Hyperlipidemia, unspecified; Z79.4 Long term (current) use of insulin; I25.10 Atherosclerotic heart disease of native coronary artery without angina pectoris; G47.33 Obstructive sleep apnea (adult) (pediatric); I25.2 Old myocardial infarction; Z95.5 Presence of coronary angioplasty implant and graft; Z79.51 Long term (current) use of inhaled steroids; Z79.82 Long term (current) use of aspirin; Z79.899 Other long term (current) drug therapy; Z87.891 Personal history of nicotine dependence
CPT/HCPCS: 36415; 71046; 80048; 82803; 82962; 85025; 87631; 93005; 94640; 97162; 97802; 99285; A4216; J1940

== ENCOUNTER → 2024-12-28 | Outpatient (CLI) | payer MEDICARE, SELFPAY ==
[2024-12-28 15:35] LABS: Anion Gap 13 (5-15); BUN 35 mg/dL (4-19); BUN/Creat Ratio 17.2 RATIO (10-20); Chloride 96 mmol/L (98-108); Creatinine, Serum 2.04 mg/dL (0.70-1.20); EST Glomerular Filtration Rate 31 (>60); Glucose 148 mg/dL (70-99); Potassium 3.8 mmol/L (3.3-5.1); Sodium Level 135 mmol/L (133-145)
== END | disposition home or self-care (01) ==
LOC: BIMLAB 09:22
PROVIDERS: PCP Internal Medicine; Referring Provider Internal Medicine; Visit Provider Internal Medicine
DX: N18.32 Chronic kidney disease, stage 3b (principal)
CPT/HCPCS: 36415; 80048

== ENCOUNTER 2025-01-29 14:08 | Emergency (ER) | payer MEDICARE, SELFPAY ==
[2025-01-29] VITALS (24 sets, daily range): BP systolic 140–197; BP diastolic 66–161; PULSE 64–79; RESP 12–24; TEMP 36.3–36.6; O2SAT 94–99; BMI 32.4
--- NOTE | 2025-01-29 14:12 | ED.RN ---
Respiratory called for EKG
--- NOTE | 2025-01-29 14:19 | ED.VIS.CHEST ---
HPI History of Present Illness Chief Complaint: Chest Pain Informant: patient and spouse/S.O. Narrative Narrative: Increasing chest pain 3 hours ago worse with taking deep breath. Pain rating bilateral shoulders up the back of his neck to his head. This morning bout of vomiting after bowel movement. No abdominal pain no current nausea. States legs a bit weak the last few days. Has not fallen. History of 9 coronary stents. History of atrial fibrillation on Eliquis. History of heart failure and COPD. States coughing less. Remote tobacco. He is followed by cardiology team with Mike stearns. denies any urinary symptoms. CVD Risk Factors: Positive for Hypercholesterolemia; Negative for Smoking PE Risk Factors: Negative for Recent Travel/Surgery, Recent Immobilization or Prior DVT or PE [facility] Medical History (Updated 01/29/25 @ 19:[address] Wellington Lay DO) Stable angina Kidney disease GERD (gastroesophageal reflux disease) Irregular heart beat Myocardial infarct Complicated urinary tract infection Urinary tract infection Colonic mass Controlled type 2 diabetes mellitus Acute respiratory insufficiency Chronic kidney disease Chronic anemia Bilateral edema of lower extremity Urinary retention Fatigue Pleural effusion (HFpEF) heart failure with preserved ejection fraction Pneumonia Colon polyp Lightheadedness Chronic constipation Anemia Obstructive sleep apnea Coronary artery disease Gastroesophageal reflux disease Allergic rhinitis Hyperlipidemia Urinary retention Wears hearing aid Wears dentures Wears glasses Cancer History of steroid therapy Ambulates with cane Walker as ambulation aid Arthritis Kidney stone Easy bruising Back pain Injury of back History of hiatal hernia Former smoker BiPAP (biphasic positive airway pressure) dependence Asthma Hoarseness Chronic cough Leg cramps History of pain when walking History of stress test History of heart attack History of irregular heartbeat Recurrent urinary tract infection ALMEIDA (dyspnea on exertion) Chest pain Right leg swelling Patellar bursitis of right knee Asthma-COPD overlap syndrome Abdominal aortic aneurysm (AAA) Peripheral vascular disease of extremity with claudication Rectus sheath hematoma Pre-syncope Essential (primary) hypertension Restless legs syndrome Daytime hypersomnia Somatic dysfunction of pelvic region DDD (degenerative disc disease), lumbar Overweight Seasonal allergies Carotid bruit Atherosclerotic heart disease of robinson coronary artery without angina pectoris PVD (peripheral vascular disease) COPD (chronic obstructive pulmonary disease) Home Medications ?Medication ?Instructions ?Recorded ?Last Taken ?Type handicap placcard #1 ea 09/28/19 Unknown Rx ascorbate calcium (vitamin C) 500 500 mg PO DAILY Bone strength 05/03/20 01/29/25 History mg tablet coenzyme Q10 100 mg capsule (Co 100 mg PO DAILY supplement 05/03/20 01/29/25 History Q-10) cholecalciferol (vitamin D3) 100 100 mcg PO DAILY supplement 11/03/20 01/29/25 History mcg (4,000 unit) tablet spacer #1 ea 01/12/21 Unknown Rx lancets #180 ea 07/18/23 Unknown Rx lactulose 20 gram/30 mL oral 20 g PO BID PRN constipation 05/01/24 Unknown History solution montelukast 10 mg tablet 10 mg PO QHS Respiratory #90 tabs 05/04/24 01/28/25 Rx atorvastatin 40 mg tablet 40 mg PO QODAY cholesterol #45 tabs 05/13/24 01/27/25 Rx tamsulosin 0.4 mg capsule 0.4 mg PO DAILY 06/01/24 01/22/25 History finasteride 5 mg tablet 5 mg PO DAILY 06/28/24 01/28/25 History insulin glargine-yfgn 100 unit/mL 22 unit (0.22 mL) subcut DAILY #15 09/16/24 01/28/25 Rx (3 mL) subcutaneous pen (Semglee mL (insulin glargine-yfgn) Pen) insulin aspart U-100 100 unit/mL 10 unit (0.1 mL) subcut TID #15 mL 10/07/24 01/29/25 Rx subcutaneous cartridge (Novolog PenFill U-100 Insulin aspart) handicap placard #1 ea 10/12/24 Unknown Rx budesonide-formoterol HFA 160 2 puff inhalation BID copd #3 ea 10/16/24 01/28/25 Rx mcg-4.5 mcg/actuation aerosol inhaler (Symbicort) pantoprazole 40 mg tablet,delayed 40 mg PO DAILY reflux #90 tabs 11/30/24 01/29/25 Rx release apixaban 2.5 mg tablet (Eliquis) 2.5 mg PO BID atrial fibrillation 12/14/24 01/29/25 Rx #180 tabs aspirin 81 mg tablet,delayed 81 mg PO DAILY 12/14/24 01/28/25 History release (Adult Low Dose Aspirin) ipratropium bromide 21 mcg (0.03 2 spray intranasal BID PRN allergy 12/14/24 Unknown History %) nasal spray symptoms blood sugar diagnostic (OneTouch #180 ea 12/21/24 Unknown Rx Ultra Test strips) albuterol sulfate 90 mcg/actuation 2 inh inhalation Q4H PRN shortness 01/04/25 01/28/25 Rx aerosol inhaler (Ventolin HFA) of breath or wheezing #18 grams nitroglycerin 0.4 mg sublingual 0.4 mg sublingual Q5-15M PRN chest 01/13/25 01/29/25 Rx tablet (Nitrostat) pain #25 tabs pen needle, diabetic 31 gauge x #100 ea 01/13/25 Unknown Rx 1/4 (Unifine Pentips) hydralazine 100 mg tablet 100 mg PO BID hypertension #180 01/26/25 01/29/25 Rx tabs ranolazine 500 mg tablet,extended 500 mg PO BID #180 tabs 01/26/25 01/29/25 Rx release,12 hr ropinirole 1 mg tablet 3 mg (3 x 1 mg) PO QHS restless 01/26/25 01/28/25 Rx leg #90 tabs ferrous sulfate 325 mg (65 mg 325 mg PO QODAY 01/29/25 01/27/25 History iron) tablet (FeroSul) gabapentin 100 mg capsule 100 mg PO DAILY 01/29/25 01/28/25 History ipratropium 0.5 mg-albuterol 3 mg 3 ml inhalation TID SOB &/OR 01/29/25 01/28/25 History (2.5 mg base)/3 mL nebulization WHEEZING soln loratadine 10 mg tablet (Allergy 10 mg PO DAILY allergies 01/29/25 01/28/25 History Relief (loratadine)) torsemide 20 mg tablet 20 mg PO QHS 01/29/25 Unknown History Allergy/AdvReac Type Severity Reaction Status Date / Time cilostazol (From Pletal) Allergy Unknown Verified 01/29/25 14:11 felodipine Allergy Hives Verified 01/29/25 14:11 levofloxacin Allergy Hives Verified 01/29/25 14:11 Sulfa (Sulfonamide Allergy Unknown Verified 01/29/25 14:11 Antibiotics) isosorbide AdvReac Intermediate low BP Verified 01/29/25 14:11 Family History Father Diabetes Cancer Prostate cancer Mother Dementia Brother Parkinsons Brother Cancer H/O vascular surgery Surgical History (Updated 01/29/25 @ 17:23 by Yazmin Still) History of appendectomy History of surgical procedure H/O vascular surgery History of surgical procedure History of transurethral resection of prostate History of endarterectomy (07/2018) History of left heart catheterization (03/2014) History of coronary artery stent placement (02/17/08) History of vascular surgery (08/2018) History of hernia repair H/O aortic aneurysm repair (11/1998) Social History household members: spouse 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 status: 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 Smoking Status: Former smoker quit date: 08/07/08 pack-years: 2 Tobacco: How many years used: 52 Electronic Cigarette Use: not used how long ago did patient quit smokin years ago alcohol intake: current alcohol intake frequency: holidays/special occasions only details: hx of alcohol abuse substance use type: does not use caffeine: No what type of physical activity do you participate in: other details: Nustep frequency: 5-6 times per week duration: 15-30 minutes/day seatbelt use: always do you feel safe at home: Yes ROS ROS ED Constitutional Constitutional ED: Denies chills, fever(s) or sweats ENT ENT ED: Denies sore throat Cardiovascular Cardiovascular: Reports chest pain; Denies leg edema, palpitations or racing heartbeat Respiratory/Chest Respiratory/Chest: Reports dyspnea; Denies cough or dyspnea on exertion Gastrointestinal Gastrointestinal: Denies abdominal pain, diarrhea, nausea or vomiting Genitourinary Genitourinary ED: Denies dysuria, hematuria or urinary frequency Musculoskeletal Musculoskeletal: Denies back pain, extremity pain or neck pain Integumentary Denies rash or wounds Neurologic Neurologic: Reports weakness; Denies headache(s) or paresthesias EXAM Physical Exam Const Vital Signs: 01/29/25 14:09 01/29/25 14:22 01/29/25 14:22 Temperature 97.9 F Temperature Source Oral Pulse Rate 73 Respiratory Rate 18 Respiratory Effort Normal Blood Pressure 155/74 H Blood Pressure Mean 101 Pulse Ox 99 Oxygen Delivery Method Room Air Room Air 01/29/25 15:10 01/29/25 15:15 01/29/25 15:15 Temperature Temperature Source Pulse Rate 67 71 71 Respiratory Rate 18 24 H 24 H Respiratory Effort Blood Pressure 140/92 H Blood Pressure Mean 103 Pulse Ox 97 98 98 Oxygen Delivery Method 01/29/25 15:30 01/29/25 15:45 01/29/25 16:00 Temperature Temperature Source Pulse Rate 64 72 69 Respiratory Rate 22 H 22 H 20 H Respiratory Effort Blood Pressure 155/85 H 176/74 H 184/77 H Blood Pressure Mean 102 103 107 Pulse Ox 98 97 98 Oxygen Delivery Method 01/29/25 16:10 01/29/25 16:11 01/29/25 16:15 Temperature Temperature Source Pulse Rate 69 64 78 Respiratory Rate 19 H 21 H Respiratory Effort Blood Pressure 176/89 H 176/89 H 197/80 H Blood Pressure Mean 116 115 Pulse Ox 99 98 Oxygen Delivery Method 01/29/25 16:16 01/29/25 16:20 01/29/25 16:21 Temperature Temperature Source Pulse Rate 71 78 77 Respiratory Rate 23 H Respiratory Effort Blood Pressure 197/80 H 197/80 H 185/161 H Blood Pressure Mean 119 Pulse Ox 96 Oxygen Delivery Method Room Air 01/29/25 16:21 01/29/25 16:30 01/29/25 16:30 Temperature Temperature Source Pulse Rate 79 74 74 Respiratory Rate 19 H 18 18 Respiratory Effort Blood Pressure 185/161 H 162/81 H Blood Pressure Mean 169 107 Pulse Ox 94 95 95 Oxygen Delivery Method 01/29/25 16:45 01/29/25 17:00 01/29/25 17:00 Temperature Temperature Source Pulse Rate 69 66 66 Respiratory Rate 24 H 12 12 Respiratory Effort Blood Pressure 167/66 H 186/74 H Blood Pressure Mean 95 106 Pulse Ox 97 97 Oxygen Delivery Method 01/29/25 17:15 01/29/25 17:30 01/29/25 17:45 Temperature Temperature Source Pulse Rate 71 66 67 Respiratory Rate 18 13 20 H Respiratory Effort Blood Pressure 156/78 H 158/72 H 161/69 H Blood Pressure Mean 98 96 96 Pulse Ox 97 98 98 Oxygen Delivery Method 01/29/25 18:00 01/29/25 18:15 01/29/25 18:30 Temperature Temperature Source Pulse Rate 66 66 69 Respiratory Rate 23 H 23 H 20 H Respiratory Effort Blood Pressure 171/99 H 167/77 H 180/73 H Blood Pressure Mean 122 104 106 Pulse Ox 97 96 96 Oxygen Delivery Method 01/29/25 18:45 01/29/25 19:00 01/29/25 19:33 Temperature 97.4 F L Temperature Source Pulse Rate 72 74 69 Respiratory Rate 24 H 24 H 13 Respiratory Effort Blood Pressure 169/81 H 174/84 H 166/67 H Blood Pressure Mean 107 110 100 Pulse Ox 95 96 97 Oxygen Delivery Method Positive well nourished and well developed General Appearance ED: well developed and NAD HEENT Reports moist mucous membranes normocephalic and atraumatic Eyes General Eye ED: Yes normal appearance of both eyes Neck full ROM Chest Wall Chest: Negative for tenderness Resp normal respiratory effort and normal air movement Effort and Inspection: symmetric chest movement; Negative for respiratory distress Cardio regular rate and no murmurs Rhythm: abnormal rhythm Peripheral Pulses: pulses 2+ throughout GI normal to inspection, nondistended, normoactive bowel sounds and non-tender Palpation: Negative for guarding or rebound tenderness present Extremity normal to inspection General Extremety ED: Negative for edema or tenderness General Extremity: Negative for edema Neuro oriented x3 and no sensory deficits noted Sensorium / Orientation: awake and alert Skin no rashes or lesions noted and no wounds Heart Score History: Moderately Suspicious ECG: Normal Age: >/= 65 years Risk Factors: >/= 3 Risk Factors or History of CAD Troponin: >1 - <3 Normal Limit Score: 6 MDM MDM MDM Narrative Medical decision making narrative: Interventions / MDM: Differential diagnosis: Atypical chest pain Diagnosis considered but do not suspect: Pulmonary embolism however chronic anticoagulation and compliant. ACS, negative per algorithm. My EKG interpretation: Rate controlled atrial fibrillation at 66, no ST changes. EKG #2 at 1627: Rate controlled A-fib rate [address] changes. 1 PVC noted. Imaging independently reviewed and interpreted by myself: 2 view chest x-ray: No acute process. External documents reviewed: Reviewed cardiology office note from November 2024, history of chronic A-fib, coronary disease history he had noted heart cath 2013 noting in-stent stenosis right coronary artery of 50% he had a 90% first obtuse vessel. Patient with an echocardiogram January 2024 EF of 65%. Test considered but not ordered:N/A ED course: Chest pain worse with deep breaths 3 hours ago. No worsening cough with his COPD history. No leg swelling for concerns for CHF. Cardiac workup initiated. Aspirin ordered. 1555: Initial troponin returned at 46 indeterminate range. Creatinine 2.59. Hemoglobin 11.6. Last creatinine was 2.04 1 month ago. I discussed cardiology note and reported heart cath 2013 he has not had any additional cath since then. Noted a single stent from his cath report when he reported me had 9 stents. He took his Eliquis this morning. He reports symptoms 5 out of 10 more mid chest going to his right side of his back. Blood pressure systolic 170s, will attempt nitro series and reevaluate symptoms awaiting for delta troponin results. 1616: Patient was receiving his first nitro, I was in the room checking on him reporting pain was starting to increase. Repeat EKG is ordered. 1630: Repeat EKG unchanged rate controlled A-fib PVC noted. 1635: After 3 nitros reported pain still 5 out of 10. IV morphine ordered. Will await delta troponin. 1740: Delta troponin down to 39. Symptoms resolving. With his cardiac history the symptoms, will monitor for 4-hour troponin while in the ED. 191: 4-hour troponin down to 37. Minimal symptoms on reevaluation. With his cardiac history I discussed with on-call database consultant Dr. Allen discussed his medical history his cath report reporting he had a normal stress test last year and his lab findings. With troponins trending down ACS is ruled out at this time. He will follow-up closely in the office with Mike stearns for further evaluation. Strict return precautions. All questions were answered. Re-evaluation: stable Disposition discussed with patient/family/significant other: Patient and spouse Case discussed with consulting clinician: Cardiology This note was generated with [employer] dictation software. It may contain incorrect words, spelling, and punctuation that were not noted in checking the note before signing. Lab Data Attestation: I reviewed the patient's lab results. Labs: Laboratory Results - last 24 hr 01/29/25 01/29/25 01/29/25 14:31 16:31 18:31 WBC 8.6 RBC 3.15 L Hgb 11.6 L Hct 31.0 L MCV 98.4 H MCH 36.8 H MCHC 37.4 H RDW Std Deviation 48.8 H RDW Coeff of Justin 15.6 H Plt Count 353 MPV 10.0 Immature Gran % (Auto) 0.300 Neut % (Auto) 74.1 H Lymph % (Auto) 14.2 L Eagle % (Auto) 10.1 H Eos % (Auto) 0.8 Baso % (Auto) 0.5 Absolute Neuts (auto) 6.4 Absolute Lymphs (auto) 1.22 Nucleated RBC % 0 Sodium 137 Potassium 4.2 Chloride 97 L Carbon Dioxide 26.2 Anion Gap 13 BUN 56 H Creatinine 2.59 H Estim Creat Clear Calc 21.24 L Est GFR (MDRD) Non-Af 23 L BUN/Creatinine Ratio 21.5 H Glucose 74 Calcium 9.7 Troponin T High Sens 46 H Troponin T Hi Sens 2 Hr 39 H Troponin T Hi Sens 4Hr 37 H Radiography Diagnostic Testing: Clinical Impression(s) from Imaging Studies Chest X-Ray 01/29/25 14:40 IMPRESSION: Prominent bilateral lower lobe interstitial markings. Similar findings were noted on the previous study. Mild cardiac enlargement. Reading Location: [facility] Discharge Plan Triage Chief Complaint: Chest Pain ED Provider: Wellington Lay Dx/Rx/DC Orders Clinical Impression: Chest pain, History of CAD (coronary artery disease), Chronic a-fib, Chronic anticoagulation Instructions: ED Chest Pain, Uncertain Cause Prescriptions: No Action (DME) handicap placcard Qty: 1 0RF Rx Instructions: Lifetime: debility coenzyme Q10 [Co Q-10] 100 mg capsule 100 mg PO DAILY ascorbate calcium (vitamin C) 500 mg tablet 500 mg PO DAILY cholecalciferol (vitamin D3) 100 mcg (4,000 unit) tablet 100 mcg PO DAILY (DME) spacer See Rx Instructions .ROUTE .MEDSUPPLY Qty: 1 0RF Rx Instructions: As directed (DME) lancets Misc See Rx Instructions .Route Qty: 180 1RF Rx Instructions: twice daily lactulose 20 gram/30 mL solution 20 g PO BID PRN (Reason: constipation) Patient Comments: pt states he takes it sometimes daily Rx Instructions: 30 ml once or twice daily for constipation tamsulosin 0.4 mg capsule 0.4 mg PO DAILY Patient Comments: PT TAKES SOMETIMES pantoprazole 40 mg tablet,delayed release (DR/EC) 40 mg PO DAILY Qty: 90 1RF finasteride 5 mg tablet 5 mg PO DAILY Patient Comments: PT TAKES AT NIGHT ipratropium bromide 21 mcg (0.03 %) spray,non-aerosol 2 spray intranasal BID PRN (Reason: allergy symptoms) Rx Instructions: administer into each nostril aspirin [Adult Low Dose Aspirin] 81 mg tablet,delayed release (DR/EC) 81 mg PO DAILY Patient Comments: PT TAKES AT BEDTIME ferrous sulfate [FeroSul] 325 mg (65 mg iron) tablet 325 mg PO QODAY gabapentin 100 mg capsule 100 mg PO DAILY Patient Comments: PT TAKES AT BEDTIME ipratropium-albuterol 0.5 mg-3 mg(2.5 mg base)/3 mL solution for nebulization 3 ml inhalation TID Rx Instructions: 3 mL inhaled; torsemide 20 mg tablet 20 mg PO QHS Patient Comments: PT TAKES AT BEDTIME Rx Instructions: Take 1-1/2 tabs twice a day loratadine [Allergy Relief (loratadine)] 10 mg tablet 10 mg PO DAILY montelukast 10 mg tablet 10 mg PO QHS Qty: 90 3RF atorvastatin 40 mg tablet 40 mg PO QODAY Qty: 45 3RF Patient Comments: PT TAKES IN EVENING insulin glargine-yfgn [Semglee(insulin glarg-yfgn)Pen] 100 unit/mL (3 mL) insulin pen 22 unit subcut DAILY Qty: 15 1RF Patient Comments: PT TAKES AT BEDTIME insulin aspart U-100 [Novolog PenFill U-100 Insulin] 100 unit/mL cartridge 10 unit subcut TID Qty: 15 1RF Rx Instructions: hold if glucose is under 130 (DME) handicap placard See Rx Instructions .ROUTE .MEDSUPPLY Qty: 1 0RF Rx Instructions: Length of time: 5 years Diganosis: Impaired physical mobility budesonide-formoterol [Symbicort] 160-4.5 mcg/actuation HFA aerosol inhaler 2 puff inhalation BID Qty: 3 3RF Rx Instructions: administer with spacer, rinse mouth after each use Eliquis 2.5 mg tablet 2.5 mg PO BID Qty: 180 4RF (DME) OneTouch Ultra Test Strip See Rx Instructions .Route Qty: 180 1RF Rx Instructions: Check three to four times a day. albuterol sulfate [Ventolin HFA] 90 mcg/actuation HFA aerosol inhaler 2 inh INHALATION Q4H PRN (Reason: shortness of breath or wheezing) Qty: 18 6RF nitroglycerin [Nitrostat] 0.4 mg tablet, sublingual 0.4 mg SUBLINGUAL Q5-15M PRN (Reason: chest pain) Qty: 25 2RF (DME) pen needle, diabetic [Unifine Pentips] 31 gauge x 1/4 needle See Rx Instructions .ROUTE .COMPLEX Qty: 100 1RF Dose Instruction: use 3 TO 4 needles daily Rx Instructions: use 3 TO 4 needles daily ranolazine 500 mg tablet extended release 12 hr 500 mg PO BID Qty: 180 3RF hydralazine 100 mg tablet 100 mg PO BID Qty: 180 3RF ropinirole 1 mg tablet 3 mg PO QHS Qty: 90 11RF Rx Instructions: administer 2-3 tablets, 1-3 hours before bedtime Primary Care Provider: Carolynn Whitman Referrals: Carolynn Whitman MD [Primary Care Provider] - Mike Stearns NP, ENGINE ROOM HELPER-C [Med Staff - Adv Practice Prof] - 3-5 Days Activity Restrictions/Additional Instructions: Your workup negative with lab testing. EKG rate controlled atrial fibrillation. Chest x-ray negative. I discussed with database consultant Dr. Allen follow-up with Mike in the office. He develop worsening symptoms, return to ED for reevaluation. Print Language: Cypriot Disposition Disposition: Home, Self Care Discharge Date/Time: 01/29/25 19:51
[2025-01-29] MEDS: Aspirin 81 MG TAB.CHEW 324 MG PO (14:33)
--- NOTE | 2025-01-29 14:40 | RAD_ITS ---
PROCEDURE: CHEST PA AND LATERAL 01/29/2025 REASON FOR EXAM: CHEST PAIN TECHNIQUE: Frontal and lateral views of the chest. COMPARISON: Chest dated 12/14/2024. FINDINGS: Lungs: Prominent bilateral lung interstitial markings particularly in the lower lobes. Pleura: No pleural effusions, thickening, or pneumothorax. Heart: Mild cardiac enlargement. Mediastinum/Minerva: Unremarkable. Great vessels: Atherosclerotic and mildly tortuous aorta Bones/soft tissues: Old fracture, right clavicle with compression plate. Cardiac monitoring leads overlie the chest wall. RAD/Chest PA and Lateral IMPRESSION: Prominent bilateral lower lobe interstitial markings. Similar findings were no kyung on the previous study. Mild cardiac enlargement. Reading Location: [facility]
[2025-01-29 14:46] LABS: Absolute Lymphocyte Count 1.22 X10^3/uL (0.83-4.51); Absolute Neutrophil Count 6.4 X10^3/uL (2.0-7.7); Basophil# 0.04 X10^3/uL; Basophil% 0.5 % (0-1); Eosinophil# 0.07 X10^3/uL; Eosinophils% 0.8 % (0-5); Hemoglobin 11.6 g/dL (13.0-16.5); Lymphocyte # 1.22 X10^3/ul (0.83-4.51); Lymphocyte % 14.2 % (19-41); Mean Corp Hgb Conc 37.4 g/dL (32-36); Mean Corpuscular Hgb 36.8 pg (27.0-32.0); Mean Corpuscular Volume 98.4 fL (80-94); Monocyte# 0.87 X10^3/uL; Monocyte% 10.1 % (0-10); NRBC Flagged by Analyzer 0 % (0-5); Neutrophil # 6.35 X10^3/uL (2.7-7.7); Neutrophil % 74.1 % (47-70); Platelet Count 353 K/mm3 (150-450); RBC Distribution Width CV 15.6 % (11.6-14.6); RBC Distribution Width SD 48.8 fl (35.1-43.9); Red Blood Count 3.15 M/mm3 (4.6-6.2); White Blood Count 8.6 K/mm3 (4.4-11.0)
[2025-01-29 15:17] LABS: Anion Gap 13 (5-15); BUN 56 mg/dL (4-19); BUN/Creat Ratio 21.5 RATIO (10-20); Calcium,Total 9.7 mg/dL (7.6-11.0); Carbon Dioxide 26.2 mmol/L (21.0-32.0); Chloride 97 mmol/L (98-108); Creatinine, Serum 2.59 mg/dL (0.70-1.20); EST Glomerular Filtration Rate 23 (>60); Estimated Creatinine Clearance 21.24 ml/min (50-250); Glucose 74 mg/dL (70-99); Potassium 4.2 mmol/L (3.3-5.1); Sodium Level 137 mmol/L (133-145); Troponin T High Sensitivity 46 ng/L (<=22)
[2025-01-29] MEDS: Nitroglycerin SL (ED/IMG/CATH) 0.4 MG TABLET SL ×3 (16:11→16:21)
[2025-01-29] MEDS: Morphine 4 MG/ML Syringe IV (16:43)
[2025-01-29 17:29] LABS: Troponin T High Sens 2 HR 39 ng/L (<=22)
[2025-01-29 18:58] LABS: Troponin T High Sens 4 HR 37 ng/L (<=22)
== END 2025-01-29 19:51 | disposition home or self-care (01) ==
PROVIDERS: Emergency Provider Emergency Medicine; PCP Internal Medicine; Visit Provider Emergency Medicine
DX: R07.9 Chest pain, unspecified (principal); I50.32 Chronic diastolic (congestive) heart failure; I13.0 Hypertensive heart and chronic kidney disease with heart failure and stage 1 through stage 4 chronic kidney disease, or unspecified chronic kidney disease; J44.9 Chronic obstructive pulmonary disease, unspecified; I48.20 Chronic atrial fibrillation, unspecified; E11.22 Type 2 diabetes mellitus with diabetic chronic kidney disease; Z79.4 Long term (current) use of insulin; I25.10 Atherosclerotic heart disease of native coronary artery without angina pectoris; E78.00 Pure hypercholesterolemia, unspecified; N18.9 Chronic kidney disease, unspecified; Z79.01 Long term (current) use of anticoagulants; Z87.891 Personal history of nicotine dependence; Z79.51 Long term (current) use of inhaled steroids; Z79.899 Other long term (current) drug therapy
CPT/HCPCS: 71046; 80048; 84484; 85025; 93005; 96374; 96376; 99285; A4216

== ENCOUNTER → 2025-02-01 | Outpatient (CLI) | payer MEDICARE, SELFPAY ==
[2025-02-01 13:56] LABS: Absolute Lymphocyte Count 0.87 X10^3/uL (0.83-4.51); Absolute Neutrophil Count 6.1 X10^3/uL (2.0-7.7); Basophil# 0.03 X10^3/uL; Basophil% 0.4 % (0-1); Eosinophil# 0.11 X10^3/uL; Eosinophils% 1.4 % (0-5); Hematocrit 29.9 % (40-54); Hemoglobin 10.7 g/dL (13.0-16.5); Lymphocyte # 0.87 X10^3/ul (0.83-4.51); Lymphocyte % 11.1 % (19-41); Mean Corp Hgb Conc 35.8 g/dL (32-36); Mean Corpuscular Hgb 34.5 pg (27.0-32.0); Mean Corpuscular Volume 96.5 fL (80-94); Mean Platelet Vol. 10.2 fl (6.2-12.0); Monocyte# 0.67 X10^3/uL; Monocyte% 8.5 % (0-10); NRBC Flagged by Analyzer 0 % (0-5); Neutrophil # 6.11 X10^3/uL (2.7-7.7); Neutrophil % 77.8 % (47-70); Platelet Count 324 K/mm3 (150-450); RBC Distribution Width CV 14.1 % (11.6-14.6); RBC Distribution Width SD 47.8 fl (35.1-43.9); White Blood Count 7.9 K/mm3 (4.4-11.0)
[2025-02-01 15:21] LABS: Anion Gap 14 (5-15); BUN 52 mg/dL (4-19); BUN/Creat Ratio 22.3 RATIO (10-20); Calcium,Total 9.4 mg/dL (7.6-11.0); Carbon Dioxide 24.1 mmol/L (21.0-32.0); Chloride 96 mmol/L (98-108); Creatinine, Serum 2.32 mg/dL (0.70-1.20); EST Glomerular Filtration Rate 27 (>60); Ferritin 98 ng/mL (37-417); Glucose 191 mg/dL (70-99); Iron 25 ug/dL (65-175); Iron Binding Capacity,Total 280 ug/dL (250-450); Iron Binding Capacity,Unsat 255 ug/dL (228-428); Potassium 3.7 mmol/L (3.3-5.1); Sodium Level 134 mmol/L (133-145); Vitamin B12 1183 pg/mL (180-914)
== END | disposition home or self-care (01) ==
LOC: BIMLAB 12:11
PROVIDERS: PCP Internal Medicine; Visit Provider Internal Medicine
DX: D64.9 Anemia, unspecified (principal); I50.30 Unspecified diastolic (congestive) heart failure
CPT/HCPCS: 80048; 82607; 82728; 83540; 83550; 85025

== ENCOUNTER → 2025-02-06 | Outpatient (CLI) | payer MEDICARE, SELFPAY | END | disposition home or self-care (01) | LOC: LABSPEC 11:29 | PROVIDERS: PCP Internal Medicine; Referring Provider Internal Medicine; Visit Provider Internal Medicine | DX: D50.9 Iron deficiency anemia, unspecified (principal) | CPT/HCPCS: 82274 ==

== ENCOUNTER 2025-02-15 02:58 | Inpatient (IN) | payer MEDICARE, SELFPAY ==
[2025-02-15] VITALS (15 sets, daily range): BP systolic 144–170; BP diastolic 76–102; PULSE 72–90; RESP 16–26; TEMP 36.3–36.8; O2SAT 93–99; BMI 32.7; BMI 30.7; BMI 34.7
--- NOTE | 2025-02-15 03:07 | EDS_ITS ---
HPI History of Present Illness Chief Complaint: Shortness of Breath Informant: patient and spouse/S.O. Onset/Context/Timing Onset: Days Context: gradual Timing: Intermittent Quality: Positive for Dyspnea on exertion Current Severity: Mild Maximum Severity: Mild Worsened by: Exertion Relieved by: Rest Associated Symptoms cough and white sputum Chest Pain: Positive for None Narrative Narrative: 89-year-old male extensive past medical history of CHF, diabetes, anemia, COPD, CKD, A-fib on the blood thinner Eliquis. Was hospitalized several weeks ago. Dates he has developed shortness of breath with exertion. No chest pain. Initially was off his Lasix well in the hospital. He is restarted back home 40 twice a day. States he has had increased swelling in his lower extremities. Denies any significant chest pain. No fever. He does have a cough primarily of white sputum. No fever. PE Risk Factors: Negative for Cancer, OCP + Smoking + > 35, Prior DVT or PE, Recent immobilization, Recent surgery or Recent travel Prior similar symptoms: Yes Recent Illness/Hospitalization: Yes PFSH [facility] Medical History Right carotid bruit Stable angina Kidney disease GERD (gastroesophageal reflux disease) Irregular heart beat Myocardial infarct Complicated urinary tract infection Urinary tract infection Colonic mass Controlled type 2 diabetes mellitus Acute respiratory insufficiency Chronic kidney disease Chronic anemia Bilateral edema of lower extremity Urinary retention Fatigue Pleural effusion (HFpEF) heart failure with preserved ejection fraction Pneumonia Colon polyp Lightheadedness Chronic constipation Anemia Obstructive sleep apnea Coronary artery disease Gastroesophageal reflux disease Allergic rhinitis Hyperlipidemia Urinary retention Wears hearing aid Wears dentures Wears glasses Cancer History of steroid therapy Ambulates with cane Walker as ambulation aid Arthritis Kidney stone Easy bruising Back pain Injury of back History of hiatal hernia Former smoker BiPAP (biphasic positive airway pressure) dependence Asthma Hoarseness Chronic cough Leg cramps History of pain when walking History of stress test History of heart attack History of irregular heartbeat Recurrent urinary tract infection ALMEIDA (dyspnea on exertion) Chest pain Right leg swelling Patellar bursitis of right knee Asthma-COPD overlap syndrome Abdominal aortic aneurysm (AAA) Peripheral vascular disease of extremity with claudication Rectus sheath hematoma Pre-syncope Essential (primary) hypertension Restless legs syndrome Daytime hypersomnia Somatic dysfunction of pelvic region DDD (degenerative disc disease), lumbar Overweight Seasonal allergies Carotid bruit Atherosclerotic heart disease of [place] coronary artery without angina pectoris PVD (peripheral vascular disease) COPD (chronic obstructive pulmonary disease) Home Medications ?Medication ?Instructions ?Recorded ?Last Taken ?Type handicap placcard #1 ea 09/28/19 Unknown Rx coenzyme Q10 100 mg capsule (Co 100 mg PO DAILY supple ment 05/03/20 01/29/25 History Q-10) cholecalciferol (vitamin D3) 100 100 mcg PO DAILY supp lement 11/03/20 01/29/25 History mcg (4,000 unit) tablet spacer #1 ea 01/12/21 Unknown Rx lancets #180 ea 07/18/23 Unknown Rx lactulose 20 gram/30 mL oral 20 g PO BID PRN constipat ion 05/01/24 Unknown History solution montelukast 10 mg tablet 10 mg PO QHS Respiratory #90 tabs 05/04/24 01/28/25 Rx atorvastatin 40 mg tablet 40 mg PO QODAY cholesterol # 45 tabs 05/13/24 01/27/25 Rx tamsulosin 0.4 mg capsule 0.4 mg PO DAILY 06/01/24 History finasteride 5 mg tablet 5 mg PO DAILY 06/28/2401/28 History insulin aspart U-100 100 unit/mL 10 unit (0.1 mL) subc ut TID #15 mL 10/07/24 01/29/25 Rx subcutaneous cartridge (Novolog PenFill U-100 Insulin aspart) handicap placard #1 ea 10/12/24 Unknown Rx budesonide-formoterol HFA 160 2 puff inhalation BID co pd #3 ea 10/16/24 01/28/25 Rx mcg-4.5 mcg/actuation aerosol inhaler (Symbicort) pantoprazole 40 mg tablet,delayed 40 mg PO DAILY reflu x #90 tabs 11/30/24 01/29/25 Rx release apixaban 2.5 mg tablet (Eliquis) 2.5 mg PO BID atrial fibrillation 12/14/24 01/29/25 Rx #180 tabs aspirin 81 mg tablet,delayed 81 mg PO DAILY 12/14/24 0 01/28/25 History release (Adult Low Dose Aspirin) ipratropium bromide 21 mcg (0.03 2 spray intranasal BI D PRN allergy 12/14/24 Unknown History %) nasal spray symptoms blood sugar diagnostic (OneTouch #180 ea 12/21/24 Unkn own Rx Ultra Test strips) albuterol sulfate 90 mcg/actuation 2 inh inhalation Q4 H PRN shortness 01/04/25 01/28/25 Rx aerosol inhaler (Ventolin HFA) of breath or wheezing # 18 grams nitroglycerin 0.4 mg sublingual 0.4 mg sublingual Q5-1 5M PRN chest 01/13/25 01/29/25 Rx tablet (Nitrostat) pain #25 tabs pen needle, diabetic 31 gauge x #100 ea 01/13/25 Unkno wn Rx 10/10 (Unifine Pentips) hydralazine 100 mg tablet 100 mg PO BID hypertension # 180 01/26/25 01/29/25 Rx tabs ranolazine 500 mg tablet,extended 500 mg PO BID #180 t abs 01/26/25 01/29/25 Rx release,12 hr ropinirole 1 mg tablet 3 mg (3 x 1 mg) PO QHS restl ess 01/26/25 01/28/25 Rx leg #90 tabs gabapentin 100 mg capsule 100 mg PO DAILY 01/29/25 History ipratropium 0.5 mg-albuterol 3 mg 3 ml inhalation TID SOB &/OR 01/29/25 01/28/25 History (2.5 mg base)/3 mL nebulization WHEEZING soln loratadine 10 mg tablet (Allergy 10 mg PO DAILY allerg ies 01/29/25 01/28/25 History Relief (loratadine)) 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 meter,continuous #1 ea 02/01/25 Unknown Rx (FreeStyle Dw[place] 3 Gore) ferrous sulfate 325 mg (65 mg 325 mg PO 3XW 02/04/25 U nknown History iron) tablet (FeroSul) 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 sensor (FreeStyle #3 ea 02/10/25 Unknown Rx Dwight 3 Plus Sensor device) furosemide 20 mg tablet 40 mg PO BID 02/15/25 Unknow n History insulin glargine 100 unit/mL (3 22 unit subcut DAILY 0 02/15/25 Unknown History mL) subcutaneous pen (Lantus Solostar U-100 Insulin) Allergy/AdvReac Type Severity Reaction Status Date / Time cilostazol (From Pletal) Allergy Unknown Verified 02/04/25 14:00 felodipine Allergy Hives Verified 02/04/25 14:00 levofloxacin Allergy Hives Verified 02/04/25 14:00 Sulfa (Sulfonamide Allergy Unknown Verified 02/04/25 14:00 Antibiotics) isosorbide AdvReac Intermediate low BP Verified 02/04/25 14:00 Family History Father Diabetes Cancer Prostate cancer Mother Dementia Brother Parkinsons Brother Cancer H/O vascular surgery Surgical History History of appendectomy History of surgical procedure H/O vascular surgery History of surgical procedure History of transurethral resection of prostate History of endarterectomy (07/2018) History of left heart catheterization (03/2014) History of coronary artery stent placement (02/17/08) History of vascular surgery (08/2018) History of hernia repair H/O aortic aneurysm repair (11/1998) Social History household members: spouse 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 status: 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 Cough and white sputum. Constitutional Constitutional ED: Denies chills or fever(s) Eyes Eyes: Denies blurry vision ENT ENT ED: Denies ear pain Cardiovascular Cardiovascular: Denies chest pain, orthopnea or paroxysmal nocturnal dyspnea Respiratory/Chest Respiratory/Chest: Reports cough, dyspnea, dyspnea on exertion and sputum; Denies orthopnea or paroxysmal nocturnal dyspnea Gastrointestinal Gastrointestinal: Denies abdominal pain, diarrhea, melena, nausea or vomiting Genitourinary Genitourinary ED: Denies dysuria or hematuria Musculoskeletal Musculoskeletal: Denies arthralgias Integumentary Denies abscess Psychiatric Psychiatric: Denies anxiety Endocrine Endocrinology: Denies cold intolerance Hematologic/Lymphatic Hematologic/Lymphatic: Denies easy bleeding, easy bruising or lymphadenopathy Allergic/Immunologic Allergic/Immunologic ED: Denies mouth swelling, tongue swelling or urticaria EXAM Physical Exam Narrative Exam Narrative: 89-year-old male lying in bed. Vital signs are stable afebrile. Pulse ox in bed 93 to 95%. He is in no distress. is at bedside. H EENT exam pupils round react light. Moist moist membranes. Neck nontender no JVD. No lymphadenopathy. Lungs clear to auscultation bilaterally. Heart atrial flutter rate about 82 no murmur. Chest wall ribs nontender. Abdomen soft nontender. 1+ pitting edema both lower extremities. Consistent with bilateral peripheral edema. Dorsi plantarflexion intact. Normal personal care aid strength. Back nontender. Neurologically is awake alert. Answering questions following commands. Const Vital Signs: 02/15/25 02:58 02/15/25 03:05 02/15/25 03:22 Temperature 98.3 F Temperature Source Oral Pulse Rate 81 Respiratory Rate 26 H Respiratory Effort Normal Respiratory Depth Normal Respiratory Pattern Normal Blood Pressure 144/100 H Blood Pressure Mean 114 Pulse Ox 93 95 Oxygen Delivery Method Room Air Room Air Room Air 02/15/25 03:53 02/15/25 04:16 Temperature 98.1 F 98.1 F Temperature Source Oral Pulse Rate 81 90 Respiratory Rate 16 19 H Respiratory Effort Respiratory Depth Respiratory Pattern Blood Pressure 149/91 H 150/101 H Blood Pressure Mean 110 117 Pulse Ox 94 96 Oxygen Delivery Method Room Air Positive well nourished and well developed; Negative for obese, cachectic, contractures or unkempt General Appearance ED: well developed and NAD; Negative for unkempt, cachectic or contractures Nutritional Appearance: Negative for cachectic or obese HEENT Reports moist mucous membranes atraumatic; Negative for trauma or tenderness Eyes PERRL and EOMs intact bilaterally Neck no lymphadenopathy, supple, no meningeal signs and no JVD Resp normal respiratory effort and clear to auscultation bilaterally Cardio no murmurs; Negative for regular rate Cardio Narrative: Atrial flutter rate about 82. GI non-tender, non-distended and no masses Auscultation: normoactive bowel sounds Palpation: soft; Negative for tender, guarding, mass or rebound tenderness pre sent Back/Spine no CVA tenderness and normal to inspection Extremity Negative for normal to inspection Extremity Narrative: Bilateral 1+ pitting edema. Equal symmetrical. Calves nontender. No cords. General Extremety ED: Yes edema; Negative for tenderness General Extremity: edema Neuro oriented x3 and CN's II-XII intact bilaterally Sensorium / Orientation: alert, oriented to person, oriented to place and oriented to time; Negative for orientation impaired, confused, lethargic or stuporous Motor Exam: strength 5/5 throughout Psych mental status grossly normal Appearance: Negative for unkempt Attitude: No agitated Mood & Affect: Negative for depressed, anxious or tearful Skin no wounds and skin turgor normal General Skin Exam: Negative for jaundice Rashes: no rashes MDM MDM MDM Narrative Medical decision making narrative: 89-year-old male exertional dyspnea. Exam has a flutter controlled rate with bilateral peripheral edema. This could be from CHF. Could be from anemia. Could be cardiac. I do not think is pneumonia. I do not think it is COVID. I do not think it is a pulmonary emboli because he is on Eliquis. Patient will undergo cardiac workup including a BNP. Repeat exam at 4:05 AM. No significant change. I went over specific test result the patient and his . They tell me he cannot walk across the room at home without get significantly winded that the sit down. I think his dyspnea is secondary to pulmonary edema, CHF, atrial fibs flutter and worsening anemia. I will speak to the hospitalist about admitting him. The patient will be given 20 mg of IV Lasix. History & Record Review Discussion w/independent historian: Patient and Family Additional record(s) reviewed:: Prior inpatient record, Prior outpatient record, Prior ED visit and Prior labs Lab Data Attestation: I reviewed the patient's lab results. Lab results narrative: CBC shows a week 11.2. H&H 9.5 and 27. Platelets 428. Electrolytes shows sodium 133. Gap 15. BUN 48 creatinine 2.1. Glucose 190. Initial troponin 83. BNP 12,152. COVID, flu RSV negative. Labs: Laboratory Results - last 24 hr 02/15/25 02:42 WBC 11.2 H RBC 2.89 L Hgb 9.5 L Hct 27.7 L MCV 95.8 H MCH 32.9 H MCHC 34.3 RDW Std Deviation 46.5 H RDW Coeff of Justin 13.9 Plt Count 428 MPV 10.2 Immature Gran % (Auto) 0.800 Neut % (Auto) 83.7 H Lymph % (Auto) 6.4 L Cecil % (Auto) 8.8 Eos % (Auto) 0.1 Baso % (Auto) 0.2 Absolute Neuts (auto) 9.4 H Absolute Lymphs (auto) 0.72 L Nucleated RBC % 0 Sodium 133 Potassium 4.1 Chloride 97 L Carbon Dioxide 21.0 Anion Gap 15 BUN 48 H Creatinine 2.12 H Estim Creat Clear Calc 27.81 L Est GFR (MDRD) Non-Af 30 L BUN/Creatinine Ratio 22.7 H Glucose 190 H Calcium 9.5 Troponin T High Sens 83 H* [place] [address] H Radiography Chest X-Ray - ED: 2 View, Read by ED Physician, Read by Radiologist, Mediastinum, Bony Structures, Chronic Changes, Cardiomegaly, CHF and - (Small pleural effusion.) Diagnostic Testing: Clinical Impression(s) from Imaging Studies Chest X-Ray 02/15/25 03:25 IMPRESSION: There is again appearance of some increased perihilar markings with a lower zone predominance and possibly some septal thickening now with some small pleural effusions suggested on the lateral view which may represent mild pulmonary edema, clinically correlate. Cardiac silhouette is again mildly large for technique. Reading Location: [facility] Chest x-ray, 2 views, AP and lateral, interpreted by myself and the radiologist. Shows mild cardiomegaly. Pulmonary edema. Small pleural effusion. No pneumonia. Rhythm Strip Rhythm Strip: Atrial flutter Rate: 82 Ectopy: PVC(s) EKG Initial EKG: Attestation: I personally reviewed and interpreted this EKG as follows: Interpretation: No Acute Injury Pattern and Atrial Flutter Comments: Atrial flutter rate of 82. Occasional PVC. No acute sign of IA or ischemia. Discharge Plan Dx/Rx/DC Orders Clinical Impression: Acute dyspnea, Anemia, Chronic anticoagulation, CHF (congestive heart failure), Atrial fibrillation/flutter, Peripheral edema, Chronic kidney disease, History of diabetes mellitus, History of COPD Disposition Disposition: Acute Care Hospital [facility]
--- NOTE | 2025-02-15 03:15 | EKG12_ITS ---
Test Reason : SOB Blood Pressure : */* mmHG Vent. Rate : 82 BPM Atrial Rate : 352 BPM P-R Int : * ms QRS Dur : 100 ms QT Int : 422 ms P-R-T Axes : * 34 -48 degrees QTcB Int : 493 ms Atrial flutter with variable A-V block with premature ventricular or aberrantly conducted complexes Nonspecific T wave abnormality Prolonged QT Abnormal ECG Confirmed by Bryant Tsang ([id number]), deputy editor in chief LASHANDA GARNETT ([id number]) on 02/15/2025 9:26:17 AM Referred By: ARMINDA Confirmed By: Bryant Tsang
[2025-02-15 03:21] LABS: Absolute Lymphocyte Count 0.72 X10^3/uL (0.83-4.51); Absolute Neutrophil Count 9.4 X10^3/uL (2.0-7.7); Basophil# 0.02 X10^3/uL; Basophil% 0.2 % (0-1); Eosinophil# 0.01 X10^3/uL; Eosinophils% 0.1 % (0-5); Hematocrit 27.7 % (40-54); Hemoglobin 9.5 g/dL (13.0-16.5); Lymphocyte # 0.72 X10^3/ul (0.83-4.51); Lymphocyte % 6.4 % (19-41); Mean Corp Hgb Conc 34.3 g/dL (32-36); Mean Corpuscular Hgb 32.9 pg (27.0-32.0); Mean Corpuscular Volume 95.8 fL (80-94); Mean Platelet Vol. 10.2 fl (6.2-12.0); Monocyte# 0.98 X10^3/uL; Monocyte% 8.8 % (0-10); NRBC Flagged by Analyzer 0 % (0-5); Neutrophil # 9.35 X10^3/uL (2.7-7.7); Neutrophil % 83.7 % (47-70); Platelet Count 428 K/mm3 (150-450); RBC Distribution Width CV 13.9 % (11.6-14.6); RBC Distribution Width SD 46.5 fl (35.1-43.9); Red Blood Count 2.89 M/mm3 (4.6-6.2); White Blood Count 11.2 K/mm3 (4.4-11.0)
--- NOTE | 2025-02-15 03:25 | RAD_ITS ---
PROCEDURE: CHEST PA AND LATERAL 02/15/2025 REASON FOR EXAM: CHEST PAIN TECHNIQUE: Frontal and lateral views of the chest. COMPARISON: 01/29/2025 FINDINGS: There is again appearance of some increased perihilar markings with a lower zone predominance and possibly some septal thickening now with some small pleural effusions suggested on the lateral view which may represent mild pulmonary edema, clinically correlate. Cardiac silhouette is again mildly large for technique. Atherosclerotic changes of the aortic arch. Previous ORIF right clavicle again noted. RAD/Chest PA and Lateral IMPRESSION: There is again appearance of some increased perihilar markings with a lower zon e predominance and possibly some septal thickening now with some small pleural effusions suggested on the lateral view which may r epresent mild pulmonary edema, clinically correlate. Cardiac silhouette is again mildly large for technique. Reading Location: [id number]
[2025-02-15 03:35] LABS: Anion Gap 15 (5-15); BUN 48 mg/dL (4-19); BUN/Creat Ratio 22.7 RATIO (10-20); Calcium,Total 9.5 mg/dL (7.6-11.0); Chloride 97 mmol/L (98-108); Creatinine, Serum 2.12 mg/dL (0.70-1.20); EST Glomerular Filtration Rate 30 (>60); Estimated Creatinine Clearance 27.81 ml/min (50-250); Glucose 190 mg/dL (70-99); Potassium 4.1 mmol/L (3.3-5.1); Sodium Level 133 mmol/L (133-145)
[2025-02-15 03:52] LABS: Pro- Brain NATRIURETIC PEPTIDE 12152 pg/mL (<=1800); Troponin T High Sensitivity 83 ng/L (<=22)
[2025-02-15] MEDS: Furosemide 20 MG/2 ML VIAL IV (04:14)
--- NOTE | 2025-02-15 04:14 | HP.PCM.HOS_ITS ---
[facility] - General General Date of Admission: 02/15/25 Date of Service: 02/15/25 Chief Complaint: SOB and LE edema. [facility] Narrative DESIREE HERNANDES, is a 89 M with a past medical history of essential hypertension; on hydralazine BID and furosemide BID, hyperlipidemia; on atorvastatin, obesity; with BMI of 32.7 this admission, MARIXA; on BiPAP, diabetes mellitus type 2; of unknown control on insulin glargine 22U sq daily plus insulin aspart 10U TID, diabetic neuropathy; on gabapentin, history of chronic diastolic CHF; with preserved left ventricular ejection fraction, coronary artery disease; status post distal RCA stent (1997) on ranolazine plus as needed SL NTG, chronic atrial fibrillation/flutter; on aspirin, history of AAA; s/p repair (1998), history of tobacco abuse (quit 2007); with subsequent COPD, chronic kidney disease; stage III-IV with baseline serum creatinine of ~2.3 mg/dL with a BUN of ~37 mg/dL, MACHELLE; on ferrous sulfate, history of severe peripheral vascular disease with lower extremity claudication; s/p endarterectomy of Right iliac and Left groin (11/2023), history of vertigo likely due to BPPV, restless leg syndrome; on ropinirole, BPH; on tamsulosin and finasteride, GERD; on pantoprazole, osteoarthritis, spinal stenosis and degenerative disc disease; with chronic low back pain and recent admission here from December 15, 2024 to December 17, 2024 for treatment of AE COPD secondary to acute Influenza A complicated by hypoxia who presents to [facility] ER complaining of shortness of breath and lower extremity edema. Mr. Hernandes reports his symptoms began approximately 3 weeks prior to admission with a gradual-onset of dyspnea on exertion that progressed to shortness of breath at rest. He also admits to increasing swelling in both lower extremities and cough productive of white sputum. He states his symptoms are similar to his previous CHF exacerbations. He also admits to worsening neuropathy with patient feeling like he has shoes on all the time in addition to intermittent jerking and unsteady gait when walking. He was already previously set up to have an outpatient head CT done but he has not had a chance to undergo this testing yet. He denies associated fever, chills, chest pain, nausea, vomiting, diarrhea, constipation, abdominal pain, dysuria, headache or rash. In the ER he was noted to have an elevated NT pro-BNP II of 12,152 pg milliliter present on admission with a CXR suggestive of appearance of some increased perihilar markings with a lower zone predominance and possibly some septal thickening with small pleural effusion suggested on the lateral view which may represent mild pulmonary edema with clinical correlation recommended with cardiac silhouette again mildly large for technique consistent with AE of chronic diastolic CHF; with preserved LVEF complicated by elevated troponin T of 83 ng/L likely due to Acute Cardiac Strain along with clinical evidence of Acute Bronchitis with Leukocytosis of 11.2 K present on admission and he was then admitted to the PCU for ongoing care for state that is expected to extend beyond 2 midnights. [facility] Medical History Right carotid bruit Stable angina Kidney disease GERD (gastroesophageal reflux disease) Irregular heart beat Myocardial infarct Complicated urinary tract infection Urinary tract infection Colonic mass Controlled type 2 diabetes mellitus Acute respiratory insufficiency Chronic kidney disease Chronic anemia Bilateral edema of lower extremity Urinary retention Fatigue Pleural effusion (HFpEF) heart failure with preserved ejection fraction Pneumonia Colon polyp Lightheadedness Chronic constipation Anemia Obstructive sleep apnea Coronary artery disease Gastroesophageal reflux disease Allergic rhinitis Hyperlipidemia Urinary retention Wears hearing aid Wears dentures Wears glasses Cancer History of steroid therapy Ambulates with cane Walker as ambulation aid Arthritis Kidney stone Easy bruising Back pain Injury of back History of hiatal hernia Former smoker BiPAP (biphasic positive airway pressure) dependence Asthma Hoarseness Chronic cough Leg cramps History of pain when walking History of stress test History of heart attack History of irregular heartbeat Recurrent urinary tract infection ALMEIDA (dyspnea on exertion) Chest pain Right leg swelling Patellar bursitis of right knee Asthma-COPD overlap syndrome Abdominal aortic aneurysm (AAA) Peripheral vascular disease of extremity with claudication Rectus sheath hematoma Pre-syncope Essential (primary) hypertension Restless legs syndrome Daytime hypersomnia Somatic dysfunction of pelvic region DDD (degenerative disc disease), lumbar Overweight Seasonal allergies Carotid bruit Atherosclerotic heart disease of [place] coronary artery without angina pectoris PVD (peripheral vascular disease) COPD (chronic obstructive pulmonary disease) Home Medications ?Medication ?Instructions ?Recorded ?Last Taken ?Type handicap placcard #1 ea 09/28/19 Unknown Rx coenzyme Q10 100 mg capsule (Co 100 mg PO DAILY supple ment 05/03/20 01/29/25 History Q-10) cholecalciferol (vitamin D3) 100 100 mcg PO DAILY supp lement 11/03/20 01/29/25 History mcg (4,000 unit) tablet spacer #1 ea 01/12/21 Unknown Rx lancets #180 ea 07/18/23 Unknown Rx lactulose 20 gram/30 mL oral 20 g PO BID PRN constipat ion 05/01/24 Unknown History solution montelukast 10 mg tablet 10 mg PO QHS Respiratory #90 tabs 05/04/24 01/28/25 Rx atorvastatin 40 mg tablet 40 mg PO QODAY cholesterol # 45 tabs 05/13/24 01/27/25 Rx tamsulosin 0.4 mg capsule 0.4 mg PO DAILY 06/01/24 History finasteride 5 mg tablet 5 mg PO DAILY 06/28/2401/28 History insulin aspart U-100 100 unit/mL 10 unit (0.1 mL) subc ut TID #15 mL 10/07/24 01/29/25 Rx subcutaneous cartridge (Novolog PenFill U-100 Insulin aspart) handicap placard #1 ea 10/12/24 Unknown Rx budesonide-formoterol HFA 160 2 puff inhalation BID co pd #3 ea 10/16/24 01/28/25 Rx mcg-4.5 mcg/actuation aerosol inhaler (Symbicort) pantoprazole 40 mg tablet,delayed 40 mg PO DAILY reflu x #90 tabs 11/30/24 01/29/25 Rx release apixaban 2.5 mg tablet (Eliquis) 2.5 mg PO BID atrial fibrillation 12/14/24 01/29/25 Rx #180 tabs ipratropium bromide 21 mcg (0.03 2 spray intranasal BI D PRN allergy 12/14/24 Unknown History %) nasal spray symptoms blood sugar diagnostic (OneTouch #180 ea 12/21/24 Unkn own Rx Ultra Test strips) albuterol sulfate 90 mcg/actuation 2 inh inhalation Q4 H PRN shortness 01/04/25 01/28/25 Rx aerosol inhaler (Ventolin HFA) of breath or wheezing # 18 grams nitroglycerin 0.4 mg sublingual 0.4 mg sublingual Q5-1 5M PRN chest 01/13/25 01/29/25 Rx tablet (Nitrostat) pain #25 tabs pen needle, diabetic 31 gauge x #100 ea 01/13/25 Unkno wn Rx 10/10 (Unifine Pentips) hydralazine 100 mg tablet 100 mg PO BID hypertension # 180 01/26/25 01/29/25 Rx tabs ranolazine 500 mg tablet,extended 500 mg PO BID #180 t abs 01/26/25 01/29/25 Rx release,12 hr ropinirole 1 mg tablet 3 mg (3 x 1 mg) PO QHS restl ess 01/26/25 01/28/25 Rx leg #90 tabs gabapentin 100 mg capsule 100 mg PO DAILY 01/29/25 History ipratropium 0.5 mg-albuterol 3 mg 3 ml inhalation TID SOB &/OR 01/29/25 01/28/25 History (2.5 mg base)/3 mL nebulization WHEEZING soln loratadine 10 mg tablet (Allergy 10 mg PO DAILY allerg ies 01/29/25 01/28/25 History Relief (loratadine)) 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 meter,continuous #1 ea 02/01/25 Unknown Rx (FreeStyle Dwight 3 [place]) ferrous sulfate 325 mg (65 mg 325 mg PO 3XW low iron 0 02/04/25 Unknown History iron) tablet (FeroSul) 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 sensor (FreeStyle #3 ea 02/10/25 Unknown Rx Dwight 3 Plus Sensor device) furosemide 20 mg tablet 40 mg PO BID 02/15/25 Unknow n History insulin glargine 100 unit/mL (3 22 unit subcut DAILY 0 02/15/25 Unknown History mL) subcutaneous pen (Lantus Solostar U-100 Insulin) Allergy/AdvReac Type Severity Reaction Status Date / Time cilostazol (From Pletal) Allergy Unknown Verified 02/04/25 14:00 felodipine Allergy Hives Verified 02/04/25 14:00 levofloxacin Allergy Hives Verified 02/04/25 14:00 Sulfa (Sulfonamide Allergy Unknown Verified 02/04/25 14:00 Antibiotics) isosorbide AdvReac Intermediate low BP Verified 02/04/25 14:00 Family History Father Diabetes Cancer Prostate cancer Mother Dementia Brother Parkinsons Brother Cancer H/O vascular surgery Surgical History History of appendectomy History of surgical procedure H/O vascular surgery History of surgical procedure History of transurethral resection of prostate History of endarterectomy (07/2018) History of left heart catheterization (03/2014) History of coronary artery stent placement (02/17/08) History of vascular surgery (08/2018) History of hernia repair H/O aortic aneurysm repair (11/1998) Social History household members: spouse 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 status: retired current occupation: [email or web address] department Smoking Status: Former smoker quit date: 08/07/08 pack-years: 2 Tobacco: How many years used: 52 Electronic Cigarette Use: not used how long ago did patient quit smokin years ago alcohol intake: current alcohol intake frequency: holidays/special occasions only details: hx of alcohol abuse substance use type: does not use caffeine: No what type of physical activity do you participate in: other details: Nustep frequency: 5-6 times per week duration: 15-30 minutes/day seatbelt use: always do you feel safe at home: Yes ROS ROS Narrative Review of Systems: Constitutional: Patient denies fever or chills. Eyes: Patient denies changes in vision or discharge from eyes. ENT: Patient denies runny nose, sore throat or ear pain. Resp: Patient admits to dyspnea on exertion that progressed to shortness of breath at rest with cough productive of whitish sputum as per HPI. CV: Patient admits to lower extremity edema but he denies chest pain, palpitations or heart racing. GI: Patient denies abdominal pain, nausea, vomiting, diarrhea or constipation. : Patient denies dysuria or hematuria. MSK: Patient denies arthralgias or myalgias. Skin: Patient denies rash, abscess, wounds or jaundice. Psych: Patient denies symptoms of uncontrolled depression or anxiety. Neuro: Patient admits to worsening neuropathy with intermittent muscle twitching and unsteady gait when walking but he denies headache or focal neurologic weakness. Allergy: Patient denies lip swelling, tongue swelling or urticaria. Hematology: Patient denies easy bleeding or easy bruisability. Endocrinology: Patient denies polyuria, polydipsia, polyphagia or heat/cold intolerance. 14 point ROS otherwise negative except for positives noted above in HPI. Vital Signs Vital Signs Vital Signs: 02/15/25 02:58 02/15/25 03:05 02/15/25 03:22 Temperature 98.3 F Temperature Source Oral Pulse Rate 81 Respiratory Rate 26 H Respiratory Effort Normal Respiratory Depth Normal Respiratory Pattern Normal Blood Pressure 144/100 H Blood Pressure Mean 114 Pulse Ox 93 95 Oxygen Delivery Method Room Air Room Air Room Air 02/15/25 03:53 Temperature 98.1 F Temperature Source Oral Pulse Rate 81 Respiratory Rate 16 Respiratory Effort Respiratory Depth Respiratory Pattern Blood Pressure 149/91 H Blood Pressure Mean 110 Pulse Ox 94 Oxygen Delivery Method Room Air Weight Weight: 215 lb 2.738 oz Body Mass Index (BMI) 32.7 Physical Exam Const alert, oriented x3, no apparent distress, average body habitus and healthy appearing General Appearance: cooperative HEENT normocephalic, head/scalp atraumatic, hearing grossly normal bilaterally and moist oral mucous membranes Eyes PERRL, EOMs intact bilaterally and conjunctivae normal Neck no lymphadenopathy, supple and no JVD Resp normal respiratory effort, no retractions, no use of accessory muscles and clear to auscultation bilaterally Cardio Cardio Narrative: Patient is in atrial flutter at ~82 bpm with occasional irregularity. GI normal to inspection, nondistended, normoactive bowel sounds, soft to palpation, non-tender and non-distended GI Narrative: Obese. Extremity Extremity Narrative: ~1+ bilateral lower extremity symmetrical pitting edema. Skin Skin Narrative: Patient has evidence of rash, abscess, wounds or jaundice. Neuro oriented x3, CN's II-XII intact bilaterally, moves all extremities and no focal motor deficits Sensorium / Orientation: awake, alert, oriented to person, oriented to place and oriented to time Speech: speech normal Psych affect normal Results Medical Records Data Attestation: I reviewed the patient's medical records Lab / Micro Data Attestation: I reviewed the patient's lab results. 02/15/25 02:42 02/15/25 02:42 Labs: Laboratory Results - last 24 hr 02/15/25 02:42: WBC 11.2 H, RBC 2.89 L, Hgb 9.5 L, Hct 27.7 L, MCV 95.8 H, MCH 32.9 H, MCHC 34.3, RDW Std Deviation 46.5 H, RDW Coeff of Justin 13.9, Plt Count 428, MPV 10.2, Immature Gran % (Auto) 0.800, Neut % (Auto) 83.7 H, Lymph % (Auto) 6.4 L, Upson % (Auto) 8.8, Eos % (Auto) 0.1, Baso % (Auto) 0.2, Absolute Neuts (auto) 9.4 H, Absolute Lymphs (auto) 0.72 L, Nucleated RBC % 0, Sodium 133, Potassium 4.1, Chloride 97 L, Carbon Dioxide 21.0, Anion Gap 15, BUN 48 H, Creatinine 2.12 H, Estim Creat Clear Calc 27.81 L, Est GFR (MDRD) Non-Af 30 L, B UN/Creatinine Ratio 22.7 H, Glucose 190 H, Calcium 9.5, Troponin T High Sens 83 H* D, [place] [address] H Rhythm Strip Rhythm Strip: Atrial flutter Rate: 82 Ectopy: PVC(s) Imaging Radiology Impression Chest X-Ray 02/15/25 03:25 IMPRESSION: There is again appearance of some increased perihilar markings with a lower zone predominance and possibly some septal thickening now with some small pleural effusions suggested on the lateral view which may represent mild pulmonary edema, clinically correlate. Cardiac silhouette is again mildly large for technique. Reading Location: [facility] Assessment & Plan Assessment/Plan (1) Diastolic CHF, acute on chronic: (2) Elevated troponin: (3) Atrial fibrillation/flutter: (4) Acute bronchitis: QUALIFIERS: Bronchitis organism: unspecified organism Qualified Code(s): J20.9 - Acute bronchitis, unspecified (5) Leukocytosis: QUALIFIERS: Leukocytosis type: unspecified Qualified Code(s): D 72.829 - Elevated white blood cell count, unspecified (6) Neuropathy: (7) Muscle twitching: (8) Unsteady gait when walking: (9) Obesity (BMI 30.0-34.9): (10) MARIXA treated with BiPAP: PLAN: Plan 1. AE of chronic diastolic CHF; with preserved LVEF with an elevated NT pro-BNP II of 12,152 pg milliliter present on admission with a CXR suggestive of pulmonary edema - Admit to PCU. Continue IV furosemide twice daily plus give supplemental KCl and magnesium. Last echocardiogram was in January 2024 so new echocardiogram will be ordered to evaluate LVEF given his worsening symptoms. Serialize troponin. Give acetaminophen as needed for pain or fever. Finally, we will consult [facility] to see this patient on rounds in the a.m. for further recommendations without appreciated advance. 2. Elevated troponin T of 83 ng/L likely due to Acute Cardiac Strain due to #1 in the setting of previously known CAD; status post distal RCA stent (1997) on ranolazine plus as needed SL NTG - Serialize troponin. Continue home medications as previous with BASA and ranolazine. Give SL NTG if angina develops. 3. Acute Bronchitis with Leukocytosis of 11.2 K present on admission and persistent cough productive of thick whitish sputum complicating #1 & #2 - Start oral doxycycline and give Robitussin DM prn. 4. History of diabetic neuropathy with wobbly gait and intermittent random jerking movements in the setting of previously known RLS adding to the medical complexity of #1 - #3 - Check CT scan of the head without contrast. Increase gabapentin to TID. Resume ropinirole as previous. Finally, we will consult [facility] to see this patient on rounds in the AM for further recommendations with help appreciated in advance. 5. Chronic atrial fibrillation/flutter; on apixaban Rate-controlled at this time. Resume apixaban as previous. 6. Obesity; with BMI of 32.7 this admission plus MARIXA; on BiPAP adding to the burden of disease outlined from #1 - #4 - Weight loss will be recommended. Check TSH. Resume nocturnal BiPAP as before. This complicates his case and may hamper recovery. 7. Relatively recent admission here from December 15, 2024 to December 17, 2024 for treatment of AE COPD secondary to acute Influenza A complicated by hypoxia - Noted. 8. Essential hypertension; on hydralazine BID and furosemide BID - Maintain current therapy with hydralazine with furosemide switched to IV for #1. Give IV hydralazine as needed for systolic blood pressure greater than 160 mmHg. 9. Hyperlipidemia; on atorvastatin - Resume statin and check Lipid Profile. 10. Diabetes mellitus type 2; of unknown control on insulin glargine 22U sq daily plus insulin aspart 10U TID plus diabetic neuropathy; on gabapentin - ADA diet. Continue insulins at ~60% of home dose to avoid hypoglycemia. FSBS q. AC/HS plus SSI. Check HgbA1c to objectively evaluate quality of diabetic control. 11. History of AAA; s/p repair (1998) - Noted. 12. History of tobacco abuse (quit 2007); with subsequent COPD - Stable with no evidence of acute flare at this time. Continue scheduled and as needed nebulizers/inhalers as before. 13. Chronic kidney disease; stage III-IV with baseline serum creatinine of ~2.3 mg/dL with a BUN of ~37 mg/dL - Stable. Check renal indices daily to follow trend for continued stability. 14. MACHELLE; on ferrous sulfate - Stable with a hemoglobin of 9.5 g deciliter and MCV of 95.8 fL present on admission. 15. History of severe peripheral vascular disease with lower extremity claudication; s/p endarterectomy of Right iliac and Left groin (11/2023) - Noted. 16. History of vertigo likely due to BPPV - Give meclizine as needed if symptoms vertigo develop. 17. Restless leg syndrome; on ropinirole - Resume ropinirole as previous. 16. BPH; on tamsulosin and finasteride - Maintain home regimen. 17. GERD; on pantoprazole - Continue PPI. 18. OA, spinal stenosis and degenerative disc disease; with chronic low back pain - Give acetaminophen prn pain or fever as outlined in #1. 19. DVT prophylaxis - Patient already on apixaban for #3 which will be continued. Total time: Approximately (but not less than) 75 minutes. Charges/Coding Visit Charges Inpatient E&M: 94354 Init Hosp L3
--- NOTE | 2025-02-15 05:05 | ECHOD_ITS ---
Reason For Study Reason For Study: CHF Procedure This was a 2D Doppler, Color Flow transthoracic echocardiogram. Exam performed portable in patient room. Left Ventricle Normal LV size. Moderate concentric left ventricular hypertrophy. The left ventricular ejection fraction is 40 %. There is mild to moderate global hypokinesis of the left ventricle. Right Ventricle Normal RV size. Normal systolic function. Atria The left atrium is severely enlarged. The right atrium is mildly enlarged. Mitral Valve Bileaflet diffuse mitral valve thickening. There is mild mitral annular calcification. Mild-Moderate (1-2+) eccentric mitral valve insufficiency. Tricuspid Valve Normal tricuspid valve. Mild to moderate (1-2+) tricuspid valve insufficiency. Pulmonary artery systolic pressure is 55 mmHg. Aortic Valve Trisinus/trileaflet aortic valve. Mild focal aortic valve calcification. Great Vessels Normal aortic root. The pulmonary artery is normal size. Inferior vena cava collapse with respiration. Pericardium/Pleural Small (<1.0 cm) pericardial effusion. MMode/2D Measurements & Calculations LVIDd: 5.2 cm IVSd: 1.6 cm Ao root diam: 3.3 cm LVIDs: 4.6 cm LVPWd: 1.3 cm RVDd: 4.5 cm FS: 11.5 % LAV(MOD-bp): 120.0 ml LVAd ap4: 33.6 cm2 SV(MOD-sp4): 43.4 ml LAV(MOD-bp) Indexed: 57.0 ml/m2 LVLd ap4: 8.6 cm SI(MOD-sp4): 20.6 ml/m2 LAV(MOD-sp2): 126.6 ml EDV(MOD-sp4): 110.6 ml LAV(MOD-sp4): 106.7 ml EDV(sp4-el): 110.8 ml LVAs ap4: 24.4 cm2 LVLs ap4: 7.5 cm ESV(MOD-sp4): 67.2 ml ESV(sp4-el): 67.7 ml EF(MOD-sp4): 39.2 % EF(sp4-el): 38.9 % SV(sp4-el): 43.1 ml Aortic Valve Planimetry: 1.9 cm2 LA A4 area: 30.3 cm2 LA dimension(2D): 5.5 cm RA A4 area: 24.3 cm2 Doppler Measurements & Calculations MV E max leandro: 127.4 cm/sec MV V2 max: 156.4 cm/sec Ao V2 max: 190.6 cm/sec MV max P.8 mmHg Ao max P.5 mmHg MV V2 mean: 76.1 cm/sec Ao V2 mean: 130.1 cm/sec MV mean P.0 mmHg Ao mean P.7 mmHg MV V2 VTI: 34.0 cm Ao V2 VTI: 35.0 cm AV (velocity ratio): 0.51 LV V1 max: 90.6 cm/sec MR max leandro: 607.6 cm/sec TR max leandro: 357.3 cm/sec LV V1 max P.3 mmHg MR max P.7 mmHg TR max P.1 mmHg LV V1 mean P.7 mmHg MR mean leandro: 428.9 cm/sec LV V1 mean: 59.7 cm/sec MR mean P.5 mmHg LV V1 VTI: 17.9 cm MR VTI: 170.8 cm ECHO/Echo Complete Interpretation Summary Normal LV size. Moderate concentric left ventricular hypertrophy. The left ventricular ejection fraction is 40 %. There is mild to moderate global hypokinesis of the left ventricle. The left atrium is severely enlarged. The right atrium is mildly enlarged. Mild-Moderate (1-2+) eccentric mitral valve insufficiency. Compared to previous study, the left ventricular systolic function has worsened .. Ordering Physician: Raymond Teague Performed By: Dalton Perez RCS
--- NOTE | 2025-02-15 05:37 | CT_ITS ---
PROCEDURE: BRAIN/HEAD WITHOUT CONTRAST 02/15/2025 REASON FOR EXAM: JERKING, UNSTEADY GAIT, FALLS TECHNIQUE: Head CT without intravenous contrast. Coronal and Sagittal reconstruction series were provided. One or more dose reduction techniques were used (e.g., Automated exposure control, adjustment of the mA and/or kV according to patient size, use of iterative reconstruction technique. RADIATION DOSE SUMMARY: CTDlvol: 44.99 mGy DLP: 779.24 mGycm COMPARISON: Prior MRI of the brain dated November 13, 2022. FINDINGS: Brain: Low density in the periventricular white matter suggests mild chronic small vessel ischemic changes. CSF Spaces: Moderate generalized cerebral atrophy. Dense calcifications of the cavernous portions of the internal carotid arteries bilaterally. Sinuses/Mastoids: Clear at visualized levels Bones: Unremarkable CT/Brain/Head without Contrast IMPRESSION: CHRONIC CHANGES. NO ACUTE FINDINGS. Reading Location: [id number]
[2025-02-15 05:55] LABS: Ferritin 100 ng/mL (37-417); Iron 18 ug/dL (65-175); Iron Binding Capacity,Total 268 ug/dL (250-450); Iron Binding Capacity,Unsat 250 ug/dL (228-428)
[2025-02-15 06:06] LABS: Troponin T High Sens 2 HR 82 ng/L (<=22)
[2025-02-15 06:11] LABS: Hemoglobin A1c 6.6 % (<=5.6)
[2025-02-15 06:51] LABS: Troponin T High Sens 4 HR 69 ng/L (<=22)
[2025-02-15 07:05] LABS: Phosphorus 3.2 mg/dL (2.7-4.5)
[2025-02-15 07:39] LABS: Cholesterol 117 mg/dL (<=200); High Density Lipoprotein 39 mg/dL; Low Density Lipoprotein Calc. 66 mg/dL; Triglycerides 60 mg/dL; Very Low Density Lipoprotein 12 mg/dL (5-40); cholesterol:hdl ratio screen 3.02
[2025-02-15 08:46] LABS: Bedside Glucose 174 mg/dL (74-106)
[2025-02-15] MEDS: APIXABAN 2.5 MG TABLET (WCH) PO ×2 (09:57→23:04)
[2025-02-15] MEDS: Potassium Chloride Oral Soln 20 MEQ/15 ML UDC PO (09:57)
[2025-02-15] MEDS: 0.9% Saline Lock 10 ML Syringe IV ×2 (09:57→15:53)
[2025-02-15] MEDS: Pantoprazole Sodium 40 MG Tablet PO (09:58)
[2025-02-15] MEDS: Ranolazine 500 MG Tablet PO ×2 (09:58→23:05)
[2025-02-15] MEDS: hydrALAZINE 50 MG Tablet 100 MG PO ×2 (09:58→23:04)
[2025-02-15] MEDS: Gabapentin 100 MG Capsule PO (09:58)
[2025-02-15] MEDS: Aspirin E.C. 81 MG Tablet PO (09:58)
[2025-02-15] MEDS: Magnesium Chloride 64 MG Delay Rel.Tablet 128 MG PO ×2 (09:58→23:05)
[2025-02-15] MEDS: Ferrous Sulfate 325 MG Tablet PO (09:59)
[2025-02-15] MEDS: Tamsulosin HCl 0.4 MG Capsule PO (09:59)
[2025-02-15] MEDS: Finasteride 5 MG Tablet PO (09:59)
[2025-02-15] MEDS: Doxycycline 100 MG CAPSULE PO (09:59)
[2025-02-15] MEDS: Insulin Lispro 100 UNIT/ML INSULN.PEN 6 UNIT SC ×3 (10:02→17:12)
[2025-02-15] MEDS: Insulin Lispro 100 UNIT/ML INSULN.PEN SC ×3 (10:03→23:05)
[2025-02-15] MEDS: Insulin Glargine-YFGN 100 UNIT/ML Pen 14 UNIT SC (10:04)
[2025-02-15] MEDS: Furosemide 40 MG/4 ML Vial IV ×3 (10:06→23:05)
[2025-02-15 11:54] LABS: Bedside Glucose 216 mg/dL (74-106)
[2025-02-15] MEDS: Acetaminophen 325 MG Tablet 650 MG PO ×2 (12:25→20:41)
--- NOTE | 2025-02-15 12:41 | CASEMGMT ---
COLLEEN BECERRA Assessment Face to Face with patient for initial transition planning/care coordination assessment. COLLEEN BECERRA introduced self and role at [facility], pt voices understanding. Pt is A&Ox4 and is resting comfortably in bed and is calm. Pt's at bedside. Care providers, pharmacy, and demographics verified. Admitting dx: AE of Chronic CHF, Elevated Troponin LACE Strata: 3 PCP: Carolynn Whitman Specialists: [facility], ZACH, Patricio (PM), Andrae (Nephrology) Preferred Pharmacy: [facility] Insurance: [facility] Prescription Benefit: Yes LNOK: [place] (W), Danni Fuller (DIL) Living Arrangements: Pt lives with his in a 1.5 story home with 3 steps to enter ADLs/IADLs: Pt states that he is entirely independent Transportation: Pt's and denies concerns DME: Cane, FWW, Rollator, shower bench, grab bars, pulse ox, BP Machine. Pt states that he has a functioning BGM as well as a CBGM with sufficient supplies. Pt reports that he has a BiPAP only through [employer] with no additional oxygen currently. Pt states that he has a history with additional oxygen but it has since been revoked. Pt states that if he were to qualify again for home oxygen use that he would prefer [employer] and denies wanting to review a list of local in-network DME companies. HHC/SNF: denies hx or needs Pt?s goal: Home Plan: Anticipate home with the pt's with the continuation of OP therapy through [facility]. Follow for oxygen needs. Pt states that he is active with OP PT through [facility] and wishes to continue these services. Pt denies the need for HHC or SNF. 6-Click score is 22. Pt denies further questions, concerns, or needs at this time. Report given to [employer] CM. Alphonso Mirza RN, CM
[2025-02-15] MEDS: Albuterol 2.5 MG/3 ML VIAL.NEB. INHALATION ×2 (12:52→19:27)
--- NOTE | 2025-02-15 12:55 | NEURO.CONS ---
Assessment and Plan: Neuro Assessment/Plan DESIREE HERNANDES is a 89 M with a past medical history of CHF, HTn, HLD, DM2, neuropathy, being evaluated by Teleneurology for abnormal movements. These have been present much of his life but significantly worsened over the last 3months shortly after a viral infection. Could be related to post-infectious syndrome although this is less common in adults. For the movemnts themselves, are intermittent, appear to be most present at rest and notably wake patient up from sleep which is atypical. No clear psychiatric symptoms to suggest why there are some dyskinetic and choreiform symptoms. For now would assess for postential structural abnormalities that could point to his symptoms. No clear pharmacologic cause at this time. Since symptoms worsened around time of viral infection 3 months ago, may be difficult to pinpoint the cause as could have been a situational issues (like severe hyperglycemia) that happened during the infection but was Plan: - MRI Brain w/wo con - recomend stop gabapentin and assess if contributing to his abnormal movements - will consider medication to help control I personally attended this patient and spent a total time of 60minutes evaluating this patient including clinical assessment, review of chart, medical history imaging, and determining appropriate treatment and workup. HPI Consult Data Date of Consult: 02/15/25 HPI Narrative HPI Narrative: HPI Narrative DESIREE HERNANDES, is a 89 M with a past medical history of essential hypertension; on hydralazine BID and furosemide BID, hyperlipidemia; on atorvastatin, obesity; with BMI of 32.7 this admission, MARIXA; on BiPAP, diabetes mellitus type 2; of unknown control on insulin glargine 22U sq daily plus insulin aspart 10U TID, diabetic neuropathy; on gabapentin, history of chronic diastolic CHF; with preserved left ventricular ejection fraction, coronary artery disease; status post distal RCA stent (1997) on ranolazine plus as needed SL NTG, chronic atrial fibrillation/flutter; on aspirin, history of AAA; s/p repair (1998), history of tobacco abuse (quit 2007); with subsequent COPD, chronic kidney disease; stage III-IV with baseline serum creatinine of ~2.3 mg/dL with a BUN of ~37 mg/dL, MACHELLE; on ferrous sulfate, history of severe peripheral vascular disease with lower extremity claudication; s/p endarterectomy of Right iliac and Left groin (11/2023), 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 Mr. Hernandes reports his symptoms began approximately 3 weeks prior to admission with a gradual-onset of dyspnea on exertion that progressed to shortness of breath at rest. He also admits to increasing swelling in both lower extremities and cough productive of white sputum. He states his symptoms are similar to his previous CHF exacerbations. He also admits to worsening neuropathy with patient feeling like he has shoes on all the time in addition to intermittent jerking and unsteady gait when walking. He was already previously set up to have an outpatient head CT done but he has not had a chance to undergo this testing yet. He denies associated fever, chills, chest pain, nausea, vomiting, diarrhea, constipation, abdominal pain, dysuria, headache or rash. In the ER he was noted to have an elevated NT pro-BNP II of 12,152 pg milliliter present on admission with a CXR suggestive of appearance of some increased perihilar markings with a lower zone predominance and possibly some septal thickening with small pleural effusion suggested on the lateral view which may represent mild pulmonary edema with clinical correlation recommended with cardiac silhouette again mildly large for technique consistent with AE of chronic diastolic CHF; with preserved LVEF complicated by elevated troponin T of 83 ng/L likely due to Acute Cardiac Strain along with clinical evidence of Acute Bronchitis with Leukocytosis of 11.2 K present on admission and he was then admitted to the PCU for ongoing care for state that is expected to extend beyond 2 midnights. Neurology consulted for Tremors Neurologic History Hs been having this jerking movement of late. Has had it a while (per longer than a decade, but pt states its only been recent). It was light before, now in the last couple months has gotten worse. The movements are keeping him from doing anything and will wake up out of sleep. mostly these movements will happen at night. Pt has not seen a neurologist for these. When he has these jerking movements and dyskinesias, they happen all the time. Nothing makes it worse (does not worsen with postural changes). PAtient does not stand very much anymore but when walking this does not happen as much. Walks with a walker or a cane. Has some lightheadedness and will have falls from that. Symptoms are worse since he had the flu - this was in December. Over the last 5 years, through last summer things were relatively stable, things did not get worse as badly. Has fallen 4x since October and gets lightheaded with some of these events. Sometimes will fall asleep in chair and fall forward. Most of the falls are happening when standing, he will suddenly lose balance. Mostly he came to the hospital this time because of poor breathing. Has also had inc weakness in the legs - that has been since December. Pt started gabapentin 1 month prior, had the events get worse before the gabapentin started and he states it did not get worse after he stopped it. Neurologic Exam -? General: Laying comfortably in bed; in no acute distress. -? HENT: Normal oropharynx and mucosa. Normal external appearance of ears and nose. Exophthalmos. -? Neck: Supple, no pain or tenderness -? CV:? No peripheral edema. -? Pulmonary:? Normal respiratory effort. -? Ext: No cyanosis, edema, or deformity -? Skin: No rash. Normal palpation of skin.? -? Musculoskeletal: full range of motion; no joint tenderness. Normal digits and nails by inspection. No clubbing. -? NEURO: -? Mental Status: The patient was alert and oriented to time, place, and person. Normal recent/remote memory, concentration, and general fund of knowledge. -? Language: speech is intermittently slurred? Naming, repetition, fluency, and comprehension intact. -? Cranial Nerves: PERRL 2 mm/brisk. b/l eye ptosis, eye closure strong, EOMI, visual lynn full, no facial asymmetry, facial sensation intact, hearing intact, tongue midline, no evidence of atrophy or fibrillations. -? Motor: normal bulk, tone, and strength throughout. No pronator drift or satelliting. Upper and lower extremities equal bilaterally. -? Detailed strength exam as performed by the nurse/AIDA and witnessed by the physician: R L SA 5 5 EE EF WE WF Cigarette Catcher 5 5 HF 4- 4 KE KF 5 5 DF 5 5 PF -? Tone: is normal and bulk is normal, no spasticity, no rigidity, no cogwheeling There are intermittent dyskinesias b/l in the legs, in the arms there is some myoclonus with dyskinetic movements -? Sensation- Intact to light touch bilaterally -? Coordination: No dysmetria on [id number], finger follow finger or [id number]. -? deferred Gait [facility] Medical History Right carotid bruit Stable angina Kidney disease GERD (gastroesophageal reflux disease) Irregular heart beat Myocardial infarct Complicated urinary tract infection Urinary tract infection Colonic mass Controlled type 2 diabetes mellitus Acute respiratory insufficiency Chronic kidney disease Chronic anemia Bilateral edema of lower extremity Urinary retention Fatigue Pleural effusion (HFpEF) heart failure with preserved ejection fraction Pneumonia Colon polyp Lightheadedness Chronic constipation Anemia Obstructive sleep apnea Coronary artery disease Gastroesophageal reflux disease Allergic rhinitis Hyperlipidemia Urinary retention Wears hearing aid Wears dentures Wears glasses Cancer History of steroid therapy Ambulates with cane Walker as ambulation aid Arthritis Kidney stone Easy bruising Back pain Injury of back History of hiatal hernia Former smoker BiPAP (biphasic positive airway pressure) dependence Asthma Hoarseness Chronic cough Leg cramps History of pain when walking History of stress test History of heart attack History of irregular heartbeat Recurrent urinary tract infection ALMEIDA (dyspnea on exertion) Chest pain Right leg swelling Patellar bursitis of right knee Asthma-COPD overlap syndrome Abdominal aortic aneurysm (AAA) Peripheral vascular disease of extremity with claudication Rectus sheath hematoma Pre-syncope Essential (primary) hypertension Restless legs syndrome Daytime hypersomnia Somatic dysfunction of pelvic region DDD (degenerative disc disease), lumbar Overweight Seasonal allergies Carotid bruit Atherosclerotic heart disease of [place] coronary artery without angina pectoris PVD (peripheral vascular disease) COPD (chronic obstructive pulmonary disease) Home Medications ?Medication ?Instructions ?Recorded ?Last Taken ?Type handicap placcard #1 ea 09/28/19 Unknown Rx coenzyme Q10 100 mg capsule (Co 100 mg PO DAILY supplement 05/03/20 01/29/25 History Q-10) cholecalciferol (vitamin D3) 100 100 mcg PO DAILY supplement 11/03/20 01/29/25 History mcg (4,000 unit) tablet spacer #1 ea 01/12/21 Unknown Rx lancets #180 ea 07/18/23 Unknown Rx lactulose 20 gram/30 mL oral 20 g PO BID PRN constipation 05/01/24 Unknown History solution montelukast 10 mg tablet 10 mg PO QHS Respiratory #90 tabs 05/04/24 01/28/25 Rx atorvastatin 40 mg tablet 40 mg PO QODAY cholesterol #45 tabs 05/13/24 01/27/25 Rx tamsulosin 0.4 mg capsule 0.4 mg PO DAILY 06/01/24 01/22/25 History finasteride 5 mg tablet 5 mg PO DAILY 06/28/24 01/28/25 History insulin aspart U-100 100 unit/mL 10 unit (0.1 mL) subcut TID #15 mL 10/07/24 01/29/25 Rx subcutaneous cartridge (Novolog PenFill U-100 Insulin aspart) handicap placard #1 ea 10/12/24 Unknown Rx budesonide-formoterol HFA 160 2 puff inhalation BID copd #3 ea 10/16/24 01/28/25 Rx mcg-4.5 mcg/actuation aerosol inhaler (Symbicort) pantoprazole 40 mg tablet,delayed 40 mg PO DAILY reflux #90 tabs 11/30/24 01/29/25 Rx release apixaban 2.5 mg tablet (Eliquis) 2.5 mg PO BID atrial fibrillation 12/14/24 01/29/25 Rx #180 tabs ipratropium bromide 21 mcg (0.03 2 spray intranasal BID PRN allergy 12/14/24 Unknown History %) nasal spray symptoms blood sugar diagnostic (OneTouch #180 ea 12/21/24 Unknown Rx Ultra Test strips) albuterol sulfate 90 mcg/actuation 2 inh inhalation Q4H PRN shortness 01/04/25 01/28/25 Rx aerosol inhaler (Ventolin HFA) of breath or wheezing #18 grams hydralazine 100 mg tablet 100 mg PO BID hypertension #180 01/26/25 01/29/25 Rx tabs ranolazine 500 mg tablet,extended 500 mg PO BID #180 tabs 01/26/25 01/29/25 Rx release,12 hr ropinirole 1 mg tablet 3 mg (3 x 1 mg) PO QHS restless 01/26/25 01/28/25 Rx leg #90 tabs gabapentin 100 mg capsule 100 mg PO DAILY 01/29/25 01/28/25 History ipratropium 0.5 mg-albuterol 3 mg 3 ml inhalation TID SOB &/OR 01/29/25 01/28/25 History (2.5 mg base)/3 mL nebulization WHEEZING soln loratadine 10 mg tablet (Allergy 10 mg PO DAILY allergies 01/29/25 01/28/25 History Relief (loratadine)) 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 meter,continuous #1 ea 02/01/25 Unknown Rx (FreeStyle Dwight 3 [place]) ferrous sulfate 325 mg (65 mg 325 mg PO 3XW low iron 02/04/25 Unknown History iron) tablet (FeroSul) 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 sensor (FreeStyle #3 ea 02/10/25 Unknown Rx Dwight 3 Plus Sensor device) furosemide 20 mg tablet 40 mg PO BID 02/15/25 Unknown History insulin glargine 100 unit/mL (3 22 unit subcut DAILY 02/15/25 Unknown History mL) subcutaneous pen (Lantus Solostar U-100 Insulin) nitroglycerin 0.4 mg sublingual 0.4 mg sublingual Q5-15M PRN chest 02/15/25 Unknown Rx tablet (Nitrostat) pain #25 tabs pen needle, diabetic 31 gauge x #100 ea 02/15/25 Unknown Rx 1/4 (Unifine Pentips) Allergy/AdvReac Type Severity Reaction Status Date / Time cilostazol (From Pletal) Allergy Unknown Verified 02/04/25 14:00 felodipine Allergy Hives Verified 02/04/25 14:00 levofloxacin Allergy Hives Verified 02/04/25 14:00 Sulfa (Sulfonamide Allergy Unknown Verified 02/04/25 14:00 Antibiotics) isosorbide AdvReac Intermediate low BP Verified 02/04/25 14:00 Family History Father Diabetes Cancer Prostate cancer Mother Dementia Brother Parkinsons Brother Cancer H/O vascular surgery Surgical History History of appendectomy History of surgical procedure H/O vascular surgery History of surgical procedure History of transurethral resection of prostate History of endarterectomy (07/2018) History of left heart catheterization (03/2014) History of coronary artery stent placement (02/17/08) History of vascular surgery (08/2018) History of hernia repair H/O aortic aneurysm repair (11/1998) Social History household members: spouse 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 status: retired current occupation: [employer] Smoking Status: Former smoker quit date: 08/07/08 pack-years: 2 Tobacco: How many years used: 52 Electronic Cigarette Use: not used how long ago did patient quit smokin years ago alcohol intake: current alcohol intake frequency: holidays/special occasions only details: hx of alcohol abuse substance use type: does not use caffeine: No what type of physical activity do you participate in: other details: Nustep frequency: 5-6 times per week duration: 15-30 minutes/day seatbelt use: always do you feel safe at home: Yes Vital Signs Vital Signs Vital Signs: 02/15/25 02:58 02/15/25 03:05 02/15/25 03:22 Temperature 98.3 F Temperature Source Oral Pulse Rate 81 Pulse Strength Respiratory Rate 26 H Respiratory Effort Normal Respiratory Depth Normal Respiratory Pattern Normal Blood Pressure 144/100 H Blood Pressure Mean 114 Blood Pressure Source Blood Pressure Position Blood Pressure Location Pulse Ox 93 95 Oxygen Delivery Method Room Air Room Air Room Air 02/15/25 03:53 02/15/25 04:16 02/15/25 05:29 Temperature 98.1 F 98.1 F 98.1 F Temperature Source Oral Oral Pulse Rate 81 90 75 Pulse Strength Respiratory Rate 16 19 H 22 H Respiratory Effort Respiratory Depth Respiratory Pattern Blood Pressure 149/91 H 150/101 H 161/97 H Blood Pressure Mean 110 117 118 Blood Pressure Source Blood Pressure Position Blood Pressure Location Pulse Ox 94 96 97 Oxygen Delivery Method Room Air Room Air 02/15/25 05:45 02/15/25 08:10 02/15/25 09:39 Temperature Temperature Source Pulse Rate Pulse Strength Normal (2+) Respiratory Rate Respiratory Effort Non-Labored Respiratory Depth Respiratory Pattern Blood Pressure Blood Pressure Mean Blood Pressure Source Blood Pressure Position Blood Pressure Location Pulse Ox 96 Oxygen Delivery Method Room Air Room Air 02/15/25 09:40 02/15/25 09:45 02/15/25 09:47 Temperature 97.3 F L 97.3 F L Temperature Source Temporal Temporal Pulse Rate 90 90 Pulse Strength Respiratory Rate 18 18 Respiratory Effort Normal Non-Labored Respiratory Depth Normal Respiratory Pattern Normal Blood Pressure 149/76 H 149/76 H Blood Pressure Mean 100 100 Blood Pressure Source Monitor Blood Pressure Position Semi-Fowlers Blood Pressure Location Right Arm Pulse Ox 93 93 Oxygen Delivery Method Room Air Room Air Room Air 02/15/25 09:58 Temperature Temperature Source Pulse Rate 90 Pulse Strength Respiratory Rate Respiratory Effort Respiratory Depth Respiratory Pattern Blood Pressure 149/76 H Blood Pressure Mean Blood Pressure Source Blood Pressure Position Blood Pressure Location Pulse Ox Oxygen Delivery Method Weight Weight: 103.7 kg Body Mass Index (BMI) 34.7 EEG Results Procedure Details EEG Procedure Details: DESIREE HERNANDES is a 89 year old M with a past medical history of , who presents for evaluation of Electroencephalogram on DATE at TIME Lab / Micro Data 02/15/25 02:42 02/15/25 02:42 Labs: Laboratory Results - last 24 hr 02/15/25 02:42: WBC 11.2 H, RBC 2.89 L, Hgb 9.5 L, Hct 27.7 L, MCV 95.8 H, MCH 32.9 H, MCHC 34.3, RDW Std Deviation 46.5 H, RDW Coeff of Justin 13.9, Plt Count 428, MPV 10.2, Immature Gran % (Auto) 0.800, Neut % (Auto) 83.7 H, Lymph % (Auto) 6.4 L, [place] % (Auto) 8.8, Eos % (Auto) 0.1, Baso % (Auto) 0.2, Absolute Neuts (auto) 9.4 H, Absolute Lymphs (auto) 0.72 L, Nucleated RBC % 0, Sodium 133, Potassium 4.1, Chloride 97 L, Carbon Dioxide 21.0, Anion Gap 15, BUN 48 H, Creatinine 2.12 H, Estim Creat Clear Calc 27.81 L, Est GFR (MDRD) Non-Af 30 L, BUN/Creatinine Ratio 22.7 H, Glucose 190 H, Hemoglobin A1c 6.6 H, Calcium 9.5, Troponin T High Sens 83 H* D, [place] [address] H 02/15/25 04:49: Magnesium 2.0, Iron 18 L, TIBC 268, Iron Saturation 7.0 L, Unsaturated IBC 250, Ferritin 100, Troponin T Hi Sens 2 Hr 82 H*, TSH 2.110 02/15/25 06:22: Phosphorus 3.2, Troponin T Hi Sens 4Hr 69 H*, Triglycerides 60, Cholesterol 117, LDL Cholesterol, Calc 66, VLDL Cholesterol 12, HDL Cholesterol 39 L, Cholesterol/HDL Ratio 3.02 02/15/25 08:27: POC Glucose 174 H 02/15/25 11:37: POC Glucose 216 H Micro: Microbiology 02/15/25 07:00 Mucosa - Nose Respiratory Panel (PCR) - Final 02/15/25 03:43 Mucosa - Nose SARS-CoV-2, Influenza & RSV (PCR) - Final Rhythm Strip Rhythm Strip: Atrial flutter Rate: 82 Ectopy: PVC(s) Imaging Radiology Impression Chest X-Ray 02/15/25 03:25 IMPRESSION: There is again appearance of some increased perihilar markings with a lower zone predominance and possibly some septal thickening now with some small pleural effusions suggested on the lateral view which may represent mild pulmonary edema, clinically correlate. Cardiac silhouette is again mildly large for technique. Reading Location: [id number] Brain CT 02/15/25 05:37 IMPRESSION: CHRONIC CHANGES. NO ACUTE FINDINGS. Reading Location: [id number] Active Medications Active Medications Active Medications: Current Medications Generic Name Dose Route Start Last Admin Trade Name Freq PRN Reason Stop Dose Admin Acetaminophen 650 mg 02/15/25 05:16 02/15/25 12:25 Acetaminophen 325 Mg Tablet PO 650 mg Q6H PRN PRN Administration Pain 1-10 Or Fever>100.7 Al Hydroxide/Mg Hydroxide 30 ml 02/15/25 05:16 Mag Hydrox/Al Hydrox/Simeth 30 Ml Udc PO Q6H PRN PRN Gastric Burning Albuterol Sulfate 2.5 mg 02/15/25 05:16 Albuterol 2.5 Mg/3 Ml Vial.Neb. INHALATION Q4H PRN PRN shortness of breath/wheezing Albuterol Sulfate 2.5 mg 02/15/25 06:00 02/15/25 12:52 Albuterol 2.5 Mg/3 Ml Vial.Neb. INHALATION 2.5 mg Q6HWA.RT AMMY Administration Apixaban 2.5 mg 02/15/25 10:00 02/15/25 09:57 Apixaban 2.5 Mg Tablet ([facility]) PO 2.5 mg BID AMMY Administration Aspirin 81 mg 02/15/25 08:00 02/15/25 09:58 Aspirin E.C. 81 Mg Tablet PO 81 mg BREAKFAST AMMY Administration Atorvastatin Calcium 40 mg 02/16/25 22:00 Atorvastatin Calcium 40 Mg Tablet PO QODAY@2200 AMMY Budesonide 0.5 mg 02/15/25 06:00 Budesonide Respules 0.5 Mg/2 Ml Ampul.Neb. INHALATION Q12H.RT AMMY Ferrous Sulfate 325 mg 02/15/25 08:00 02/15/25 09:59 Ferrous Sulfate 325 Mg Tablet PO 325 mg MoWeFr@0800 AMMY Administration Finasteride 5 mg 02/15/25 10:00 02/15/25 09:59 Finasteride 5 Mg Tablet PO 5 mg DAILY AMMY Administration Furosemide 40 mg 02/15/25 14:00 Furosemide 40 Mg/4 Ml Vial IV Q8 AMMY Protocol Gabapentin 100 mg 02/15/25 10:00 02/15/25 09:58 Gabapentin 100 Mg Capsule PO 100 mg DAILY AMMY Administration Glucagon 1 mg 02/15/25 05:16 Glucagon 1 Mg/Ml Syringe IM X1 PRN HYPOGLYCEMIA Protocol Guaifenesin 5 ml 02/15/25 06:01 Guaifenesin Dm 10 Ml Udc PO Q6H PRN PRN COUGH/CONGESTION Hydralazine HCl 100 mg 02/15/25 10:00 02/15/25 09:58 Hydralazine 50 Mg Tablet PO 100 mg BID AMMY Administration Sodium Chloride 250 mls @ 15 mls/hr 02/15/25 05:15 IV .[id number] PRN Saline Flush Sodium Chloride 250 mls @ 15 mls/hr 02/15/25 05:15 IV .[id number] PRN Additional IVPB Infusion Dextrose 250 mls @ 0 mls/hr 02/15/25 05:16 Dextrose 10%-Water IV .Q0M PRN HYPOGLYCEMIA Protocol As Directed Insulin Glargine 14 unit 02/15/25 10:00 02/15/25 10:04 Insulin Glargine-Yfgn 100 Unit/Ml Pen SC 14 unit DAILY AMMY Administration Insulin Human Lispro 6 unit 02/15/25 07:00 02/15/25 12:20 Insulin Lispro 100 Unit/Ml Insuln.Pen SC 6 u TIDAC AMMY Administration Insulin Human Lispro 0 unit 02/15/25 07:00 02/15/25 12:20 Insulin Lispro 100 Unit/Ml Insuln.Pen SC 1 u ACHS AMMY Administration Protocol Ipratropium [place] 1 spray 02/15/25 05:16 Ipratropium [place] 0.06% Nasal Happy NASAL BID PRN PRN allergy symptoms Lactulose 20 gm 02/15/25 05:16 Lactulose 20 Gm/30 Ml Udc PO BID PRN PRN constipation Loratadine 10 mg 02/16/25 10:00 Loratadine 10 Mg Tablet PO Q48@1000 [facility] Magnesium Chloride 128 mg 02/15/25 10:00 02/15/25 09:58 Magnesium Chloride 64 Mg Delay Rel.Tablet PO 128 mg BID AMMY Administration Meclizine HCl 12.5 mg 02/15/25 05:16 Meclizine 12.5 Mg Tablet PO BID PRN PRN VERTIGO Melatonin 3 mg 02/15/25 05:16 Melatonin 3 Mg Tablet PO QHS PRN PRN INSOMNIA Montelukast Sodium 10 mg 02/15/25 22:00 Montelukast 10 Mg Tablet PO QHS [facility] Nitroglycerin 0.4 mg 02/15/25 05:16 Nitroglycerin (Inpatient Use) 0.4 Mg Tab.Subl SL Q5M PRN chest pain Ondansetron HCl 4 mg 02/15/25 05:16 Ondansetron 4 Mg/2 Ml Vial IV Q8H PRN PRN NAUSEA/VOMITING Pantoprazole Sodium 40 mg 02/15/25 10:00 02/15/25 09:58 Pantoprazole Sodium 40 Mg Tablet PO 40 mg DAILY AMMY Administration Potassium Chloride 20 meq 02/15/25 17:00 Potassium Chloride Oral Tablet 10 Meq PO BIDCM AMMY Pramipexole Dihydrochloride 1.5 mg 02/15/25 22:00 Pramipexole Di-Hcl 0.5 Mg Tablet PO QHS AMMY Ranolazine 500 mg 02/15/25 10:00 02/15/25 09:58 Ranolazine 500 Mg Tablet PO 500 mg BID AMMY Administration Sodium Chloride 10 - 40 ml 02/15/25 05:15 02/15/25 09:57 0.9% Saline Lock 10 Ml Syringe IV 10 ml UD PRN Administration SALINE FLUSH Tamsulosin HCl 0.4 mg 02/15/25 10:00 02/15/25 09:59 Tamsulosin Hcl 0.4 Mg Capsule PO 0.4 mg DAILY AMMY Administration
--- NOTE | 2025-02-15 15:28 | MRI_ITS ---
PROCEDURE: BRAIN W/WO CONTRAST 02/15/2025 REASON FOR EXAM: TREMOR TECHNIQUE: Brain MRI without and with intravenous contrast with additional dedicated imaging of the IACs. Multiplanar and multisequence images were obtained. CONTRAST: 20 cc IV Clariscan was administered. COMPARISON: CT brain 02/15/2025 and MRI brain 09/12/2023 FINDINGS: BRAIN/PARENCHYMA: No evidence of acute infarction or acute intracranial hemorrhage. There are subcortical and periventricular white matter FLAIR hyperintensities, likely related to chronic microvascular ischemic disease. No abnormal post-contrast enhancement. EXTRA-AXIAL SPACES: No abnormal extra-axial fluid collections. Patent basal cisterns and foramen magnum. MIDLINE SHIFT: None. VENTRICLES: No hydrocephalus. SCALP SOFT TISSUES & CALVARIUM: No significant abnormality. VISUALIZED SINUSES & MASTOIDS: No air-fluid levels in the paranasal sinuses. The mastoid air cells are clear. ARTERIAL FLOW VOIDS: Preserved major arterial flow voids indicating gross patency. MRI/Brain W/WO Contrast IMPRESSION: No acute intracranial abnormality. No suspicious intracranial mass, abnormal parenchymal or leptomeningeal enhance ment. Moderate chronic microvascular ischemia and involutional changes. Reading Location: [id number]
[2025-02-15 16:44] LABS: Bedside Glucose 132 mg/dL (74-106)
[2025-02-15] MEDS: Potassium Chloride Oral Tablet 10 MEQ 20 MEQ PO (17:14)
--- NOTE | 2025-02-15 18:11 | PN.HOSP_ITS ---
Hospitalist Note Patient was seen and examined, I talked to his who was in the room at the time of my examination. Patient has been complaining of increased swelling in his legs and shortness of breath, he was admitted early this morning with congestive heart failure. Echocardiogram performed today showed a reduced ejection fraction at 40%-his previous echocardiogram showed a normal EF at 55% in January 2024. I have elected to place the patient on losartan, his iron level is low and I will give him an infusion of Venofer, he is currently taking oral i muriel. This will need to be increased as an outpatient. I had a brief conversation with neurology via text, they are unsure of what is causing the patient's tremors which he states he intermittently gets, patient will have an MRI of the brain with and without contrast today.
[2025-02-15] MEDS: Budesonide Respules 0.5 MG/2 ML AMPUL.NEB. INHALATION (19:27)
--- NOTE | 2025-02-15 20:20 | CPS ---
set up pt own bipBRANDiD - [employer]. [employer]. machine-
[2025-02-15] MEDS: Losartan Potassium 25 MG Tablet PO (20:41)
[2025-02-15] MEDS: Sodium Ferric Gluconat/Sucrose 250 MG in 0.9% Normal Saline (250mL Bag) 250 ML 135 MG IV (20:41)
[2025-02-15] MEDS: Montelukast 10 MG Tablet PO (23:05)
[2025-02-15] MEDS: Pramipexole Di-HCl 0.5 MG Tablet 1.5 MG PO (23:06)
[2025-02-15 23:37] LABS: Bedside Glucose 169 mg/dL (74-106)
[2025-02-16] VITALS (13 sets, daily range): BP systolic 94–160; BP diastolic 54–88; PULSE 63–77; RESP 16–22; TEMP 36.3–36.7; O2SAT 94–98; BMI 34.9
[2025-02-16] MEDS: Furosemide 40 MG/4 ML Vial IV ×3 (05:42→21:58)
[2025-02-16] MEDS: 0.9% Saline Lock 10 ML Syringe IV ×2 (05:43→14:03)
[2025-02-16 06:03] LABS: Absolute Lymphocyte Count 0.88 X10^3/uL (0.83-4.51); Absolute Neutrophil Count 9.3 X10^3/uL (2.0-7.7); Basophil# 0.01 X10^3/uL; Basophil% 0.1 % (0-1); Eosinophil# 0.04 X10^3/uL; Eosinophils% 0.4 % (0-5); Hematocrit 28.9 % (40-54); Hemoglobin 9.6 g/dL (13.0-16.5); Lymphocyte # 0.88 X10^3/ul (0.83-4.51); Lymphocyte % 7.7 % (19-41); Mean Corp Hgb Conc 33.2 g/dL (32-36); Mean Corpuscular Hgb 30.6 pg (27.0-32.0); Monocyte# 1.06 X10^3/uL; Monocyte% 9.3 % (0-10); NRBC Flagged by Analyzer 0 % (0-5); Neutrophil # 9.31 X10^3/uL (2.7-7.7); Neutrophil % 81.4 % (47-70); Platelet Count 424 K/mm3 (150-450); RBC Distribution Width CV 13.8 % (11.6-14.6); RBC Distribution Width SD 45.1 fl (35.1-43.9); Red Blood Count 3.14 M/mm3 (4.6-6.2); White Blood Count 11.4 K/mm3 (4.4-11.0)
[2025-02-16 06:29] LABS: AST(SGOT) 32 U/L (<=37); Alanine Aminotransfer ALT/SGPT 27 U/L (<=46); Albumin, Serum 3.5 g/dL (3.4-4.8); Alkaline Phosphatase 85 U/L (40-129); Anion Gap 14 (5-15); BUN 52 mg/dL (4-19); BUN/Creat Ratio 25.1 RATIO (10-20); Calcium,Total 9.9 mg/dL (7.6-11.0); Carbon Dioxide 21.1 mmol/L (21.0-32.0); Chloride 99 mmol/L (98-108); Creatinine, Serum 2.06 mg/dL (0.70-1.20); EST Glomerular Filtration Rate 31 (>60); Estimated Creatinine Clearance 29.49 ml/min (50-250); Globulin 3.5 g/dL (2.2-4.2); Glucose 167 mg/dL (70-99); Potassium 4.8 mmol/L (3.3-5.1); Sodium Level 134 mmol/L (133-145); Total Bilirubin 0.68 mg/dL (0.00-1.30)
[2025-02-16] MEDS: Albuterol 2.5 MG/3 ML VIAL.NEB. INHALATION ×3 (06:53→19:17)
[2025-02-16] MEDS: Budesonide Respules 0.5 MG/2 ML AMPUL.NEB. INHALATION ×2 (06:53→19:17)
[2025-02-16] MEDS: Losartan Potassium 25 MG Tablet PO (08:28)
[2025-02-16] MEDS: Finasteride 5 MG Tablet PO (08:28)
[2025-02-16] MEDS: Magnesium Chloride 64 MG Delay Rel.Tablet 128 MG PO ×2 (08:28→21:58)
[2025-02-16] MEDS: APIXABAN 2.5 MG TABLET (WCH) PO ×2 (08:28→21:57)
[2025-02-16] MEDS: Ranolazine 500 MG Tablet PO ×2 (08:28→21:58)
[2025-02-16] MEDS: Pantoprazole Sodium 40 MG Tablet PO (08:29)
[2025-02-16] MEDS: Potassium Chloride Oral Tablet 10 MEQ 20 MEQ PO ×2 (08:29→16:26)
[2025-02-16] MEDS: Aspirin E.C. 81 MG Tablet PO (08:29)
[2025-02-16] MEDS: Loratadine 10 MG Tablet PO (08:29)
[2025-02-16] MEDS: hydrALAZINE 50 MG Tablet 100 MG PO ×2 (08:29→21:57)
[2025-02-16] MEDS: Tamsulosin HCl 0.4 MG Capsule PO (08:29)
[2025-02-16] MEDS: Insulin Glargine-YFGN 100 UNIT/ML Pen 14 UNIT SC (08:33)
[2025-02-16] MEDS: Insulin Lispro 100 UNIT/ML INSULN.PEN 6 UNIT SC ×3 (08:33→17:07)
[2025-02-16] MEDS: Insulin Lispro 100 UNIT/ML INSULN.PEN SC ×3 (08:34→21:57)
[2025-02-16 08:41] LABS: Bedside Glucose 159 mg/dL (74-106)
[2025-02-16] MEDS: Mag Hydrox/Al Hydrox/Simeth 30 ML UDC PO (10:13)
--- NOTE | 2025-02-16 11:08 | NEURO.PNOTE ---
Assessment and Plan: Neuro Assessment/Plan DESIREE ROSAS is a 89 M with a past medical history of CHF, HTn, HLD, DM2, neuropathy, being evaluated by Teleneurology for abnormal movements. These have been present much of his life but significantly worsened over the last 3months shortly after a viral infection. Could be related to post-infectious syndrome although this is less common in adults. For the movemnts themselves, are intermittent, appear to be most present at rest and notably wake patient up from sleep which is atypical. No clear psychiatric symptoms to suggest why there are some dyskinetic and choreiform symptoms. For now would assess for postential structural abnormalities that could point to his symptoms. No clear pharmacologic cause at this time. Since symptoms worsened around time of viral infection 3 months ago, may be difficult to pinpoint the cause as could have been a situational issues (like severe hyperglycemia) that happened during the infection. Imaging is normal, at this time movements are not totally consistent with choreiform or dyskinetic movements and not positional or tremors. They seem more like restless leg movements and there is a component of some akathisia and variable with sleep Plan: - recommend restarting gabapentin at 300mg at night to assess for improvement - promote healthy sleep hygiene - schedule melatonin at 8pm at night - obtain iron studies I personally attended this patient and spent a total time of 30minutes evaluating this patient including clinical assessment, review of chart, medical history imaging, and determining appropriate treatment and workup. Subject: Neurology Subjective On further review today, patient states when he has good sleep movements are less and that the movements are more in the legs than the arms. Viewed another event and was bilateral involuntary movement of legs. EEG Results Procedure Details EEG Procedure Details: DESIREE ROSAS is a 89 year old M with a past medical history of , who presents for evaluation of Electroencephalogram on DATE at TIME Objective Data Objective Data Vital Signs: Vital Signs Temp Pulse Resp BP Pulse Ox O2 Del Method 97.5 F L 75 18 94/54 L 98 Room Air 02/16/25 09:45 02/16/25 09:45 02/16/25 09:45 02/16/25 09:45 02/16/25 09:45 02/16/25 09:45 Oxygen Delivery Method Room Air Weight: 104.1 kg Body Mass Index (BMI) 34.9 Intake & Output: Intake and Output for Last 24 Hours 02/14/25 02/15/25 02/16/25 23:59 23:59 23:59 Intake Total 750 / 750 Balance 750 / 750 Lab / Micro Data 02/16/25 05:32 02/16/25 05:32 Labs: Laboratory Results - last 24 hr 02/15/25 11:37: POC Glucose 216 H 02/15/25 16:27: POC Glucose 132 H 02/15/25 23:01: POC Glucose 169 H 02/16/25 05:32: WBC 11.4 H, RBC 3.14 L, Hgb 9.6 L, Hct 28.9 L, MCV 92.0, MCH 30.6, MCHC 33.2, RDW Std Deviation 45.1 H, RDW Coeff of Justin 13.8, Plt Count 424, MPV 10.0, Immature Gran % (Auto) 1.100 H, Neut % (Auto) 81.4 H, Lymph % (Auto) 7.7 L, [place] % (Auto) 9.3, Eos % (Auto) 0.4, Baso % (Auto) 0.1, Absolute Neuts (auto) 9.3 H, Absolute Lymphs (auto) 0.88, Nucleated RBC % 0, Sodium 134, Potassium 4.8, Chloride 99, Carbon Dioxide 21.1, Anion Gap 14, BUN 52 H, Creatinine 2.06 H, Estim Creat Clear Calc 29.49 L, Est GFR (MDRD) Non-Af 31 L, BUN/Creatinine Ratio 25.1 H, Glucose 167 H, Calcium 9.9, Total Bilirubin 0.68, AST 32, ALT 27, Alkaline Phosphatase 85, Total Protein 7.0, Albumin 3.5, Globulin 3.5, Albumin/Globulin Ratio 1.0 02/16/25 07:49: POC Glucose 159 H Micro: Microbiology 02/15/25 07:00 Mucosa - Nose Respiratory Panel (PCR) - Final 02/15/25 03:43 Mucosa - Nose SARS-CoV-2, Influenza & RSV (PCR) - Final Radiography Diagnostic Testing: Radiology Impression Echocardiogram 02/15/25 05:05 Interpretation Summary Normal LV size. Moderate concentric left ventricular hypertrophy. The left ventricular ejection fraction is 40 %. There is mild to moderate global hypokinesis of the left ventricle. The left atrium is severely enlarged. The right atrium is mildly enlarged. Mild-Moderate (1-2+) eccentric mitral valve insufficiency. Compared to previous study, the left ventricular systolic function has worsened.. Ordering Physician: Raymond Teague Performed By: Dalton Perez RCS Brain MRI 02/15/25 15:28 IMPRESSION: No acute intracranial abnormality. No suspicious intracranial mass, abnormal parenchymal or leptomeningeal enhancement. Moderate chronic microvascular ischemia and involutional changes. [facility] Rhythm Strip Rhythm Strip: Atrial flutter Rate: 82 Ectopy: PVC(s) Physical Exam Narrative Neurologic Exam -? NEURO: -? Mental Status: The patient was alert and oriented to time, place, and person. Normal recent/remote memory, concentration, and general fund of knowledge. -? Language: speech is intermittently slurred? Naming, repetition, fluency, and comprehension intact. -? Cranial Nerves: PERRL 2 mm/brisk. b/l eye ptosis, no facial asymmetry, facial sensation intact, hearing intact -? Motor: normal bulk, tone, and strength throughout. No pronator drift or satelliting. Upper and lower extremities equal bilaterally. -? -? Tone: is normal and bulk is normal, no spasticity, no rigidity, no cogwheeling The movements today appear more voluntary movements with no clear stereotyped component, more prominent in the legs than the arms. These appear to be dancing movements, not clearly choreiform though. -? Sensation- deferred -? Coordination:deferred - Gait: Patient with slightly stooped gait, severe dyspnea near then end of the walk. Steps were in stride, turns appeared to be in stride. Had to walk with a walker.
[2025-02-16 11:57] LABS: Bedside Glucose 151 mg/dL (74-106)
[2025-02-16] MEDS: Sodium Ferric Gluconat/Sucrose 250 MG in 0.9% Normal Saline (250mL Bag) 250 ML 135 MG IV (15:28)
[2025-02-16 16:55] LABS: Bedside Glucose 141 mg/dL (74-106)
--- NOTE | 2025-02-16 18:19 | PN.HOSP_ITS ---
Reason for Visit Reason for Visit: Diagnoses Elevated white blood cell count, unspecified (02/15/25) Obesity, class 1 (02/15/25) Obstructive sleep apnea (adult) (pediatric) (02/15/25) Polyneuropathy, unspecified (02/15/25) Unspecified atrial fibrillation (02/15/25) Unspecified atrial flutter (02/15/25) Acute on chronic diastolic (congestive) heart failure (02/15/25) Acute bronchitis, unspecified (02/15/25) Fasciculation (02/15/25) Unsteadiness on feet (02/15/25) Other specified abnormal findings of blood chemistry (02/15/25) Subjective Subjective Patient was seen and examined today, he still complaining of shortness of breath on minimal exertion. Patient is not on any supplemental oxygen at rest however. Objective Data Objective Data Vital Signs: Vital Signs Temp Pulse Resp BP Pulse Ox O2 Del Method 97.4 F L 73 18 115/59 L 96 Room Air 02/16/25 15:30 02/16/25 15:30 02/16/25 15:30 02/16/25 15:30 02/16/25 15:30 02/16/25 15:30 Oxygen Delivery Method Room Air Weight: 104.1 kg Body Mass Index (BMI) 34.9 Intake & Output: Intake and Output for Last 24 Hours 02/14/25 02/15/25 02/16/25 23:59 23:59 23:59 Intake Total 750 / 750 360 / 360 Balance 750 / 750 360 / 360 Lab / Micro Data 02/16/25 05:32 02/16/25 05:32 Labs: Laboratory Results - last 24 hr 02/15/25 23:01: POC Glucose 169 H 02/16/25 05:32: WBC 11.4 H, RBC 3.14 L, Hgb 9.6 L, Hct 28.9 L, MCV 92.0, MCH 30.6, MCHC 33.2, RDW Std Deviation 45.1 H, RDW Coeff of Justin 13.8, Plt Count 424, MPV 10.0, Immature Gran % (Auto) 1.100 H, Neut % (Auto) 81.4 H, Lymph % (Auto) 7.7 L, [place] % (Auto) 9.3, Eos % (Auto) 0.4, Baso % (Auto) 0.1, Absolute Neuts (auto) 9.3 H, Absolute Lymphs (auto) 0.88, Nucleated RBC % 0, Sodium 134, Potassium 4.8, Chloride 99, Carbon Dioxide 21.1, Anion Gap 14, BUN 52 H, C reatinine 2.06 H, Estim Creat Clear Calc 29.49 L, Est GFR (MDRD) Non-Af 31 L, B UN/Creatinine Ratio 25.1 H, Glucose 167 H, Calcium 9.9, Total Bilirubin 0.68, AST 32, ALT 27, Alkaline Phosphatase 85, Total Protein 7.0, Albumin 3.5, Globulin 3.5, Albumin/Globulin Ratio 1.0 02/16/25 07:49: POC Glucose 159 H 02/16/25 11:34: POC Glucose 151 H 02/16/25 16:24: POC Glucose 141 H Micro: Microbiology 02/15/25 07:00 Mucosa - Nose Respiratory Panel (PCR) - Final 02/15/25 03:43 Mucosa - Nose SARS-CoV-2, Influenza & RSV (PCR) - Final Radiography Diagnostic Testing: Radiology Impression Brain MRI 02/15/25 15:28 IMPRESSION: No acute intracranial abnormality. No suspicious intracranial mass, abnormal parenchymal or leptomeningeal enhancement. Moderate chronic microvascular ischemia and involutional changes. Reading Location: [facility] Rhythm Strip Rhythm Strip: Atrial flutter Rate: 82 Ectopy: PVC(s) Physical Exam Const alert, oriented x3 and no apparent distress General Appearance: cooperative, well kempt and well developed Orientation / Consciousness: awake, oriented to person, oriented to place and oriented to time HEENT normocephalic, head/scalp atraumatic and moist oral mucous membranes Eyes PERRL, EOMs intact bilaterally and conjunctivae normal Neck supple, no JVD, thyroid normal and no carotid bruits General: trachea midline Resp Resp Narrative: Patient's respirations are shallow at times and rapid, breath sounds are diminished bilaterally Auscultation: Negative for rales, rhonchi or wheezes Cardio S1 normal heart sound, S2 normal heart sound, no murmurs, no rub and no gallops Cardio Narrative: Heart rate and rhythm is irregular GI normal to inspection, nondistended, normoactive bowel sounds, soft to palpation, non-tender and non-distended Extremity Extremity Narrative: Generalized edema is noted over the lower extremities bilaterally Skin no rashes or lesions noted General Skin Exam: no breakdown Neuro oriented x3, CN's II-XII intact bilaterally, moves all extremities, no focal motor deficits and no sensory deficits noted Sensorium / Orientation: awake and alert Speech: speech normal Psych affect normal Assessment & Plan Assessment/Plan (1) Chronic systolic (congestive) heart failure: PLAN: Plan 1. Acute on chronic systolic congestive heart failure-continue IV Lasix, accurate I's and O's have not been obtained by nursing, I talked with the charge nurse today about this, patient will continue on IV Lasix and losartan #2 chronic atrial fibrillation-patient is on Eliquis, I will add a small dose of carvedilol and monitor his heart rate. #3 movement disorder-type unclear, teleneurology is participating in his care, workup has been unremarkable so far #4 iron deficiency anemia-etiology unclear, patient will receive IV Venofer again today #5 chronic kidney disease stage IIIb-BMP will be repeated tomorrow #6 cardiomyopathy-type unclear, again patient will be placed on a beta-wagner and is on losartan at this time, he will need follow-up with cardiology as an outpatient #7 pulmonary hypertension-complicates care, management, recovery, and prognosis Total clinical time spent by myself addressing the patient's medical issues, reviewing all of his data, and collaborating with patient's care team: 35- minutes Charges/Coding Visit Charges Inpatient E&M: 18835 Subs Hosp L2
[2025-02-16] MEDS: Pramipexole Di-HCl 0.5 MG Tablet 1.5 MG PO (21:58)
[2025-02-16] MEDS: Atorvastatin Calcium 40 MG Tablet PO (21:58)
[2025-02-16] MEDS: Montelukast 10 MG Tablet PO (21:58)
[2025-02-16] MEDS: Acetaminophen 325 MG Tablet 650 MG PO (22:00)
[2025-02-16 22:28] LABS: Bedside Glucose 168 mg/dL (74-106)
[2025-02-17] VITALS (13 sets, daily range): BP systolic 141–173; BP diastolic 65–77; PULSE 69–88; RESP 17–22; TEMP 35.8–37.4; O2SAT 91–99; BMI 34.5
[2025-02-17] MEDS: Albuterol 2.5 MG/3 ML VIAL.NEB. INHALATION ×4 (03:45→20:45)
[2025-02-17] MEDS: 0.9% Saline Lock 10 ML Syringe IV ×2 (06:05→14:25)
[2025-02-17] MEDS: Furosemide 40 MG/4 ML Vial IV ×2 (06:05→14:25)
[2025-02-17 07:06] LABS: Absolute Lymphocyte Count 0.74 X10^3/uL (0.83-4.51); Absolute Neutrophil Count 9.8 X10^3/uL (2.0-7.7); Basophil# 0.03 X10^3/uL; Basophil% 0.3 % (0-1); Eosinophil# 0.02 X10^3/uL; Eosinophils% 0.2 % (0-5); Hematocrit 26.9 % (40-54); Hemoglobin 9.9 g/dL (13.0-16.5); Lymphocyte # 0.74 X10^3/ul (0.83-4.51); Lymphocyte % 6.3 % (19-41); Mean Corp Hgb Conc 36.8 g/dL (32-36); Mean Corpuscular Hgb 35.5 pg (27.0-32.0); Mean Corpuscular Volume 96.4 fL (80-94); Mean Platelet Vol. 10.2 fl (6.2-12.0); Monocyte# 0.91 X10^3/uL; Monocyte% 7.8 % (0-10); NRBC Flagged by Analyzer 0.2 % (0-5); Neutrophil # 9.84 X10^3/uL (2.7-7.7); Neutrophil % 84.3 % (47-70); Platelet Count 498 K/mm3 (150-450); RBC Distribution Width CV 15.3 % (11.6-14.6); RBC Distribution Width SD 46.4 fl (35.1-43.9); Red Blood Count 2.79 M/mm3 (4.6-6.2); White Blood Count 11.7 K/mm3 (4.4-11.0)
[2025-02-17] MEDS: Budesonide Respules 0.5 MG/2 ML AMPUL.NEB. INHALATION ×2 (07:13→20:45)
[2025-02-17 08:16] LABS: Anion Gap 12 (5-15); BUN 55 mg/dL (4-19); BUN/Creat Ratio 26.3 RATIO (10-20); Calcium,Total 9.9 mg/dL (7.6-11.0); Carbon Dioxide 23.5 mmol/L (21.0-32.0); Chloride 96 mmol/L (98-108); Creatinine, Serum 2.08 mg/dL (0.70-1.20); EST Glomerular Filtration Rate 30 (>60); Estimated Creatinine Clearance 29.12 ml/min (50-250); Glucose 172 mg/dL (70-99); Potassium 4.4 mmol/L (3.3-5.1); Sodium Level 131 mmol/L (133-145)
[2025-02-17] MEDS: Insulin Lispro 100 UNIT/ML INSULN.PEN 6 UNIT SC ×3 (08:39→16:56)
[2025-02-17] MEDS: Insulin Lispro 100 UNIT/ML INSULN.PEN SC ×2 (08:40→22:30)
[2025-02-17] MEDS: Losartan Potassium 25 MG Tablet PO (08:40)
[2025-02-17] MEDS: Aspirin E.C. 81 MG Tablet PO (08:40)
[2025-02-17] MEDS: Pantoprazole Sodium 40 MG Tablet PO (08:40)
[2025-02-17] MEDS: Ferrous Sulfate 325 MG Tablet PO (08:41)
[2025-02-17] MEDS: Potassium Chloride Oral Tablet 10 MEQ 20 MEQ PO ×2 (08:41→16:56)
[2025-02-17] MEDS: Finasteride 5 MG Tablet PO (08:41)
[2025-02-17] MEDS: Ranolazine 500 MG Tablet PO ×2 (08:42→22:31)
[2025-02-17] MEDS: Tamsulosin HCl 0.4 MG Capsule PO (08:42)
[2025-02-17] MEDS: Magnesium Chloride 64 MG Delay Rel.Tablet 128 MG PO ×2 (08:42→22:31)
[2025-02-17] MEDS: APIXABAN 2.5 MG TABLET (WCH) PO ×2 (08:42→22:30)
[2025-02-17] MEDS: hydrALAZINE 50 MG Tablet 100 MG PO ×2 (08:42→22:29)
[2025-02-17] MEDS: Insulin Glargine-YFGN 100 UNIT/ML Pen 14 UNIT SC (08:45)
--- NOTE | 2025-02-17 09:35 | PCM.PN.BLA ---
Progress Note Chart reviewed, patient not seen. Gabapentin not restarted. Continue the melatonin and promote sleep hygiene. Iron levels checked on admission - level is very low. Recommend iron supplementation per primary team. Followup outpatient with neurology or sleep as symptoms appear to be related to restless legs with likely aumentation to the upper extremities as well - which can happen in setting severe Iron deficiency. Will sign off.
[2025-02-17] MEDS: Carvedilol 3.125 MG TABLET PO ×2 (10:25→16:56)
[2025-02-17] MEDS: Sodium Ferric Gluconat/Sucrose 250 MG in 0.9% Normal Saline (250mL Bag) 250 ML 135 MG IV (10:26)
[2025-02-17 12:27] LABS: Bedside Glucose 141 mg/dL (74-106)
[2025-02-17 14:04] LABS: Bedside Glucose 165 mg/dL (74-106)
[2025-02-17] MEDS: Acetaminophen 325 MG Tablet 650 MG PO (14:33)
[2025-02-17 17:24] LABS: Bedside Glucose 144 mg/dL (74-106)
[2025-02-17] MEDS: Furosemide 500 MG in Empty Viaflex 50 mL 1 EACH CONT INF (18:29)
--- NOTE | 2025-02-17 19:14 | PN.HOSP_ITS ---
Reason for Visit Reason for Visit: Diagnoses Elevated white blood cell count, unspecified (02/15/25) Obesity, class 1 (02/15/25) Obstructive sleep apnea (adult) (pediatric) (02/15/25) Polyneuropathy, unspecified (02/15/25) Unspecified atrial fibrillation (02/15/25) Unspecified atrial flutter (02/15/25) Chronic systolic (congestive) heart failure (02/15/25) Acute on chronic diastolic (congestive) heart failure (02/15/25) Acute bronchitis, unspecified (02/15/25) Fasciculation (02/15/25) Unsteadiness on feet (02/15/25) Other specified abnormal findings of blood chemistry (02/15/25) Subjective Subjective Patient was seen and examined, he still has significant lower leg edema and he complains of shortness of breath on minimal exertion. I have decided to place the patient on a continuous Lasix drip. Patient will be evaluated tomorrow for possible discharge, he remains on room air at this time. Objective Data Objective Data Vital Signs: Vital Signs Temp Pulse Resp BP Pulse Ox O2 Del Method 99.3 F H 69 17 142/65 H 94 Room Air 02/17/25 18:41 02/17/25 18:41 02/17/25 18:41 02/17/25 18:41 02/17/25 18:41 02/17/25 18:41 Oxygen Delivery Method Room Air Weight: 103.1 kg Body Mass Index (BMI) 34.5 Intake & Output: Intake and Output for Last 24 Hours 02/15/25 02/16/25 02/17/25 23:59 23:59 23:59 Intake Total 750 / 750 870 / 1350 1969 / 1970 Output Total 3575 / 3575 Balance 750 / 750 870 / 275 -1605 / -1605 Lab / Micro Data 02/18/25 05:33 02/18/25 05:33 Labs: Laboratory Results - last 24 hr 02/16/25 21:56: POC Glucose 168 H 02/17/25 06:31: WBC 11.7 H, RBC 2.79 L, Hgb 9.9 L, Hct 26.9 L, MCV 96.4 H, MCH 35.5 H, MCHC 36.8 H D, RDW Std Deviation 46.4 H, RDW Coeff of Justin 15.3 H, Plt Count 498 H, MPV 10.2, Immature Gran % (Auto) 1.100 H, Neut % (Auto) 84.3 H, L ymph % (Auto) 6.3 L, Brooks % (Auto) 7.8, Eos % (Auto) 0.2, Baso % (Auto) 0.3, A bsolute Neuts (auto) 9.8 H, Absolute Lymphs (auto) 0.74 L, Nucleated RBC % 0.2, Sodium 131 L, Potassium 4.4, Chloride 96 L, Carbon Dioxide 23.5, Anion Gap 12, B UN 55 H, Creatinine 2.08 H, Estim Creat Clear Calc 29.12 L, Est GFR (MDRD) Non- Af 30 L, BUN/Creatinine Ratio 26.3 H, Glucose 172 H, Calcium 9.9 02/17/25 08:37: POC Glucose 165 H 02/17/25 12:03: POC Glucose 141 H 02/17/25 16:52: POC Glucose 144 H Micro: Microbiology 02/15/25 07:00 Mucosa - Nose Respiratory Panel (PCR) - Final 02/15/25 03:43 Mucosa - Nose SARS-CoV-2, Influenza & RSV (PCR) - Final Rhythm Strip Rhythm Strip: Atrial flutter Rate: 82 Ectopy: PVC(s) Physical Exam Narrative alert, oriented x3 and no apparent distress General Appearance: cooperative, well kempt and well developed Orientation / Consciousness: awake, oriented to person, oriented to place and oriented to time HEENT normocephalic, head/scalp atraumatic and moist oral mucous membranes Eyes PERRL, EOMs intact bilaterally and conjunctivae normal Neck supple, no JVD, thyroid normal and no carotid bruits General: trachea midline Resp Resp Narrative: Patient's respirations are shallow at times and rapid, breath sounds are diminished bilaterally Auscultation: Negative for rales, rhonchi or wheezes Cardio S1 normal heart sound, S2 normal heart sound, no murmurs, no rub and no gallops Cardio Narrative: Heart rate and rhythm is irregular GI normal to inspection, nondistended, normoactive bowel sounds, soft to palpation, non-tender and non-distended Extremity Extremity Narrative: Generalized edema is noted over the lower extremities bilaterally Skin no rashes or lesions noted General Skin Exam: no breakdown Neuro oriented x3, CN's II-XII intact bilaterally, moves all extremities, no focal motor deficits and no sensory deficits noted Sensorium / Orientation: awake and alert Speech: speech normal Psych affect normal Assessment & Plan Assessment/Plan (1) Chronic systolic (congestive) heart failure: PLAN: Plan 1. Acute on chronic systolic congestive heart failure-changed to continuous IV Lasix, #2 chronic atrial fibrillation-patient is on Eliquis, patient is on carvedilol #3 movement disorder-type unclear, teleneurology is participating in his care, workup has been unremarkable so far #4 iron deficiency anemia-etiology unclear, patient will receive IV Venofer again today #5 chronic kidney disease stage IIIb-BMP will be repeated tomorrow #6 cardiomyopathy-type unclear, again patient will be placed on a beta-wagner and is on losartan at this time, he will need follow-up with cardiology as an outpatient #7 pulmonary hypertension-complicates care, management, recovery, and prognosis Total clinical time spent by myself addressing the patient's medical issues, reviewing all of his data, and collaborating with patient's care team: 35- minutes Charges/Coding Visit Charges Inpatient E&M: 07864 Subs Hosp L2
[2025-02-17] MEDS: Gabapentin 300 MG Capsule PO (22:29)
[2025-02-17] MEDS: Pramipexole Di-HCl 0.5 MG Tablet 1.5 MG PO (22:30)
[2025-02-17] MEDS: Montelukast 10 MG Tablet PO (22:32)
[2025-02-18 00:33] LABS: Bedside Glucose 164 mg/dL (74-106)
[2025-02-18 04:15] VITALS: BP 142/82; PULSE 76; RESP 20; TEMP 35.7; O2SAT 94
[2025-02-18 04:41] VITALS: BMI 30.1
[2025-02-18 06:23] LABS: Absolute Lymphocyte Count 0.82 X10^3/uL (0.83-4.51); Absolute Neutrophil Count 10.7 X10^3/uL (2.0-7.7); Basophil# 0.03 X10^3/uL; Basophil% 0.2 % (0-1); Eosinophil# 0.06 X10^3/uL; Eosinophils% 0.5 % (0-5); Hematocrit 30.7 % (40-54); Hemoglobin 10.6 g/dL (13.0-16.5); Lymphocyte # 0.82 X10^3/ul (0.83-4.51); Lymphocyte % 6.4 % (19-41); Mean Corp Hgb Conc 34.5 g/dL (32-36); Mean Corpuscular Hgb 32.7 pg (27.0-32.0); Mean Corpuscular Volume 94.8 fL (80-94); Monocyte# 1.08 X10^3/uL; Monocyte% 8.4 % (0-10); NRBC Flagged by Analyzer 0.4 % (0-5); Neutrophil # 10.72 X10^3/uL (2.7-7.7); Neutrophil % 83.4 % (47-70); Platelet Count 567 K/mm3 (150-450); RBC Distribution Width CV 14.5 % (11.6-14.6); RBC Distribution Width SD 46.4 fl (35.1-43.9); Red Blood Count 3.24 M/mm3 (4.6-6.2); White Blood Count 12.9 K/mm3 (4.4-11.0)
[2025-02-18 06:53] LABS: Anion Gap 13 (5-15); BUN 56 mg/dL (4-19); BUN/Creat Ratio 23.8 RATIO (10-20); Calcium,Total 9.9 mg/dL (7.6-11.0); Carbon Dioxide 25.9 mmol/L (21.0-32.0); Chloride 95 mmol/L (98-108); Creatinine, Serum 2.35 mg/dL (0.70-1.20); EST Glomerular Filtration Rate 26 (>60); Estimated Creatinine Clearance 24.11 ml/min (50-250); Glucose 156 mg/dL (70-99); Potassium 4.7 mmol/L (3.3-5.1); Sodium Level 134 mmol/L (133-145)
[2025-02-18 07:38] VITALS: PULSE 88; RESP 24; O2SAT 96
[2025-02-18] MEDS: Albuterol 2.5 MG/3 ML VIAL.NEB. INHALATION ×2 (07:38→14:05)
[2025-02-18] MEDS: Budesonide Respules 0.5 MG/2 ML AMPUL.NEB. INHALATION (07:38)
[2025-02-18 07:59] VITALS: BP 138/78; PULSE 74; RESP 20; TEMP 36.6; O2SAT 94
[2025-02-18] MEDS: Aspirin E.C. 81 MG Tablet PO (08:01)
[2025-02-18] MEDS: Ranolazine 500 MG Tablet PO (08:02)
[2025-02-18] MEDS: Finasteride 5 MG Tablet PO (08:02)
[2025-02-18] MEDS: APIXABAN 2.5 MG TABLET (WCH) PO (08:02)
[2025-02-18] MEDS: Potassium Chloride Oral Tablet 10 MEQ 20 MEQ PO ×2 (08:02→18:15)
[2025-02-18] MEDS: Magnesium Chloride 64 MG Delay Rel.Tablet 128 MG PO (08:03)
[2025-02-18] MEDS: Loratadine 10 MG Tablet PO (08:03)
[2025-02-18] MEDS: Carvedilol 3.125 MG TABLET PO ×2 (08:03→18:15)
[2025-02-18] MEDS: Pantoprazole Sodium 40 MG Tablet PO (08:03)
[2025-02-18] MEDS: Tamsulosin HCl 0.4 MG Capsule PO (08:03)
[2025-02-18] MEDS: Losartan Potassium 25 MG Tablet PO (08:03)
[2025-02-18] MEDS: Insulin Glargine-YFGN 100 UNIT/ML Pen 14 UNIT SC (08:07)
[2025-02-18] MEDS: Insulin Lispro 100 UNIT/ML INSULN.PEN SC ×3 (08:08→17:06)
[2025-02-18] MEDS: Insulin Lispro 100 UNIT/ML INSULN.PEN 6 UNIT SC ×3 (08:08→17:05)
[2025-02-18 08:17] VITALS: PULSE 74
[2025-02-18] MEDS: hydrALAZINE 50 MG Tablet 100 MG PO (08:17)
[2025-02-18 09:29] LABS: Bedside Glucose 155 mg/dL (74-106)
[2025-02-18 12:01] LABS: Bedside Glucose 154 mg/dL (74-106)
[2025-02-18] MEDS: Sodium Ferric Gluconat/Sucrose 250 MG in 0.9% Normal Saline (250mL Bag) 250 ML 135 MG IV (13:40)
[2025-02-18] MEDS: 0.9% Saline Lock 10 ML Syringe IV (13:44)
[2025-02-18 14:05] VITALS: PULSE 86; RESP 20
--- NOTE | 2025-02-18 14:39 | PCM.DC ---
Discharge Instructions Diet Discharge Diet: 1800 Calorie Control Diet DC O2, CPAP, BIPAP needs Home O2 Discharge instructions: No Dressing / Incision Discharge Activity: Return to Normal Activity Weight Bearing Status: Full weight bearing Follow Up Care Test Results: Test results from this visit will be discussed in further detail at your follow-up appointment, if applicable. Discharge Plan Admission Admit Date/Time: 02/15/25 04:56 Primary Reason for Your Visit: Congestive heart failure Attending Provider: Inocencio Perkins Primary Care Provider: Carolynn Whitman Consulting Providers: Raymond Teague Discharge Orders/Prescriptions Prescriptions: New aspirin 81 mg Tablet,Delayed Release (Dr/Ec) 81 mg PO BREAKFAST Qty: 0 0RF carvedilol 3.125 mg Tablet 3.125 mg PO BIDCM Qty: 60 0RF gabapentin 300 mg Capsule 300 mg PO QHS Qty: 30 0RF lactulose 10 gram/15 mL Solution 20 g PO DAILY Qty: 946 0RF losartan 25 mg Tablet 25 mg PO DAILY Qty: 30 0RF potassium chloride 10 mEq Tablet,Er Particles/Crystals 20 meq PO BIDCM Qty: 60 0RF torsemide 20 mg tablet 20 mg PO BID Qty: 60 0RF Continued (DME) handicap placcard Qty: 1 0RF Rx Instructions: Lifetime: debility coenzyme Q10 [Co Q-10] 100 mg capsule 100 mg PO DAILY cholecalciferol (vitamin D3) 100 mcg (4,000 unit) tablet 100 mcg PO DAILY (DME) spacer See Rx Instructions .ROUTE .MEDSUPPLY Qty: 1 0RF Rx Instructions: As directed (DME[place] [facility] [place]ructions .Route Qty: 180 1RF Rx Instructions: twice daily tamsulosin 0.4 mg capsule 0.4 mg PO DAILY Patient Comments: PT TAKES SOMETIMES pantoprazole 40 mg tablet,delayed release (DR/EC) 40 mg PO DAILY Qty: 90 1RF (DME) FreeStyle Dwight 3 [place] Misc See Rx Instructions .Route Qty: 1 0RF Rx Instructions: As directed finasteride 5 mg tablet 5 mg PO DAILY Patient Comments: PT TAKES AT NIGHT ipratropium bromide 21 mcg (0.03 %) spray,non-aerosol 2 spray intranasal BID PRN (Reason: allergy symptoms) Rx Instructions: administer into each nostril ipratropium-albuterol 0.5 mg-3 mg(2.5 mg base)/3 mL solution for nebulization 3 ml inhalation TID Rx Instructions: 3 mL inhaled; loratadine [Allergy Relief (loratadine)] 10 mg tablet 10 mg PO DAILY insulin glargine [Lantus Solostar U-100 Insulin] 100 unit/mL (3 mL) insulin pen 22 unit subcut DAILY montelukast 10 mg tablet 10 mg PO QHS Qty: 90 3RF atorvastatin 40 mg tablet 40 mg PO QODAY Qty: 45 3RF Patient Comments: PT TAKES IN EVENING insulin aspart U-100 [Novolog PenFill U-100 Insulin] 100 unit/mL cartridge 10 unit subcut TID Qty: 15 1RF Rx Instructions: hold if glucose is under 130 (DME) handicap placard See Rx Instructions .ROUTE .MEDSUPPLY Qty: 1 0RF Rx Instructions: Length of time: 5 years Diganosis: Impaired physical mobility budesonide-formoterol [Symbicort] 160-4.5 mcg/actuation HFA aerosol inhaler 2 puff inhalation BID Qty: 3 3RF Rx Instructions: administer with spacer, rinse mouth after each use Eliquis 2.5 mg tablet 2.5 mg PO BID Qty: 180 4RF (DME) OneTouch Ultra Test Strip See Rx Instructions .Route Qty: 180 1RF Rx Instructions: Check three to four times a day. albuterol sulfate [Ventolin HFA] 90 mcg/actuation HFA aerosol inhaler 2 inh INHALATION Q4H PRN (Reason: shortness of breath or wheezing) Qty: 18 6RF ranolazine 500 mg tablet extended release 12 hr 500 mg PO BID Qty: 180 3RF hydralazine 100 mg tablet 100 mg PO BID Qty: 180 3RF ropinirole 1 mg tablet 3 mg PO QHS Qty: 90 11RF Rx Instructions: administer 2-3 tablets, 1-3 hours before bedtime (DME) FreeStyle Dwight 3 Plus Sensor Device See Rx Instructions .Route Qty: 3 0RF Rx Instructions: As directed (DME) pen needle, diabetic [Unifine Pentips] 31 gauge x 1/4 needle See Rx Instructions .ROUTE .COMPLEX Qty: 100 1RF Dose Instruction: use 3 TO 4 needles daily Rx Instructions: use 3 TO 4 needles daily nitroglycerin [Nitrostat] 0.4 mg tablet, sublingual 0.4 mg SUBLINGUAL Q5-15M PRN (Reason: chest pain) Qty: 25 2RF Changed ferrous sulfate [FeroSul] 325 mg (65 mg iron) tablet 325 mg PO DAILY Qty: 30 0RF Rx Instructions: 1 tablet daily Discontinued lactulose 20 gram/30 mL solution 20 g PO BID PRN (Reason: constipation) Patient Comments: pt states he takes it sometimes daily Rx Instructions: 30 ml once or twice daily for constipation gabapentin 100 mg capsule 100 mg PO DAILY Patient Comments: PT TAKES AT BEDTIME furosemide 20 mg tablet 40 mg PO BID Referrals / Follow Up: Carolynn Whitman MD [Primary Care Provider] - Laura Farias PA [Med Staff - [facility]] - See Referral Note (In 2 weeks, call for an appointment) Disposition Disposition (needs filled in before D/C Order can be placed): Home, Self Care
--- NOTE | 2025-02-18 14:59 | DS.PCM_ITS ---
Providers Date of Admission: 02/15/25 Date of Discharge: 02/18/25 Primary Care Physician: Dr. Carolynn Whitman MD Reason For Visit: AE OF CHRONIC DIASTOLIC CHF, ELEVATED TROPONIN, & Diagnosis Discharge Diagnosis (1) Chronic systolic (congestive) heart failure: Status: Chronic Code(s): I50.22 - Chronic systolic (congestive) heart failure Plan 1. Acute on chronic systolic congestive heart failure-continue IV Lasix, accurate I's and O's have not been obtained by nursing, I talked with the charge nurse today about this, patient will continue on IV Lasix and losartan #2 chronic atrial fibrillation-patient is on Eliquis, I will add a small dose of carvedilol and monitor his heart rate. #3 movement disorder-type unclear, teleneurology is participating in his care, workup has been unremarkable so far #4 iron deficiency anemia-etiology unclear, patient will receive IV Venofer again today #5 chronic kidney disease stage IIIb-BMP will be repeated tomorrow #6 cardiomyopathy-type unclear, again patient will be placed on a beta-wagner and is on losartan at this time, he will need follow-up with cardiology as an outpatient #7 Moderate pulmonary hypertension-complicates care, management, recovery, and prognosis Total clinical time spent by myself addressing the patient's medical issues, reviewing all of his data, and collaborating with patient's care team: 35- minutes Medications at Discharge Home Medications handicap placcard #1 ea 09/28/19 coenzyme Q10 100 mg capsule (Co Q-10) 100 mg PO DAILY supplement 05/03/20 cholecalciferol (vitamin D3) 100 mcg (4,000 unit) tablet 100 mcg PO DAILY supplement 11/03/20 spacer #1 ea 01/12/21 lancets #180 ea 07/18/23 montelukast 10 mg tablet 10 mg PO QHS Respiratory #90 tabs 05/04/24 atorvastatin 40 mg tablet 40 mg PO QODAY cholesterol #45 tabs 05/13/24 tamsulosin 0.4 mg capsule 0.4 mg PO DAILY 06/01/24 finasteride 5 mg tablet 5 mg PO DAILY 06/28/24 insulin aspart U-100 100 unit/mL subcutaneous cartridge (Novolog PenFill U-100 Insulin aspart) 10 unit (0.1 mL) subcut TID #15 mL 10/07/24 handicap placard #1 ea 10/12/24 budesonide-formoterol HFA 160 mcg-4.5 mcg/actuation aerosol inhaler (Symbicort) 2 puff inhalation BID copd #3 ea 10/16/24 pantoprazole 40 mg tablet,delayed release 40 mg PO DAILY reflux #90 tabs 11/30/24 apixaban 2.5 mg tablet (Eliquis) 2.5 mg PO BID atrial fibrillation #180 tabs 12/14/24 ipratropium bromide 21 mcg (0.03 %) nasal spray 2 spray intranasal BID PRN allergy symptoms 12/14/24 blood sugar diagnostic (Whim Ultra Test strips) #180 ea 12/21/24 albuterol sulfate 90 mcg/actuation aerosol inhaler (Ventolin HFA) 2 inh inhalation Q4H PRN shortness of breath or wheezing #18 grams 01/04/25 hydralazine 100 mg tablet 100 mg PO BID hypertension #180 tabs 01/26/25 ranolazine 500 mg tablet,extended release,12 hr 500 mg PO BID #180 tabs 01/26/25 ropinirole 1 mg tablet 3 mg (3 x 1 mg) PO QHS restless leg #90 tabs 01/26/25 ipratropium 0.5 mg-albuterol 3 mg (2.5 mg base)/3 mL nebulization soln 3 ml inhalation TID SOB &/OR WHEEZING 01/29/25 loratadine 10 mg tablet (Allergy Relief (loratadine)) 10 mg PO DAILY allergies 01/29/25 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,proof reader,cont (FreeStyle Dwight 3 [place]) #1 ea 02/01/25 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 sensor (FreeStyle Dwight 3 Plus Sensor device) #3 ea 02/10/25 insulin glargine 100 unit/mL (3 mL) subcutaneous pen (Lantus Solostar U-100 Insulin) 22 unit subcut DAILY 02/15/25 nitroglycerin 0.4 mg sublingual tablet (Nitrostat) 0.4 mg sublingual Q5-15M PRN chest pain #25 tabs 02/15/25 pen needle, diabetic 31 gauge x 1/4 (Unifine Pentips) #100 ea 02/15/25 aspirin 81 mg tablet,delayed release 81 mg PO BREAKFAST #0 tabs 02/18/25 carvedilol 3.125 mg tablet 3.125 mg PO BIDCM #60 tabs 02/18/25 ferrous sulfate 325 mg (65 mg iron) tablet (FeroSul) 325 mg PO DAILY low iron #30 tabs 02/18/25 gabapentin 300 mg capsule 300 mg PO QHS #30 caps 02/18/25 lactulose 10 gram/15 mL oral solution 20 g (30 mL) PO DAILY #946 mL 02/18/25 losartan 25 mg tablet 25 mg PO DAILY #30 tabs 02/18/25 potassium chloride 10 mEq tablet,extended release(part/cryst) 20 meq (2 x 10 mEq) PO BIDCM #60 tabs 02/18/25 torsemide 20 mg tablet 20 mg PO BID #60 tabs 02/18/25 Hospital Course Operations None Procedures 2-D Echocardiogram Summary of Care Provided Minutes Spent on Discharge: 32 Hospital Course: This 89-year-old white male was seen in the emergency room at [facility] with complaints of shortness of breath with exertion. He also complained of lower extremity edema. Patient has a history of COPD and congestive heart failure. On examination, patient had a pulse ox of 93 to 95% on room air at rest, there is +1 pitting edema to the lower legs bilaterally, patient's white blood cell count was 11.2, hemoglobin was 9.5, creatinine was 2.12 and BUN was 48. Patient's troponin was 83, beta natruretic peptide was 12,152. Chest x-ray showed increased perihilar markings and some septal thickening with small pleural effusions which could represent mild pulmonary edema. EKG showed atrial fibrillation at a rate of 82. Patient was admitted to PCU, he was placed on IV diuresis and his home meds were continued. Echocardiogram was obtained which showed reduced ejection fraction at 40%. Patient states several days in the hospital for diuresis, he did not require oxygen the time of discharge home. On 02/18/2025, patient was seen and examined:alert, oriented x3 and no apparent distress General Appearance: cooperative, well kempt and well developed Orientation / Consciousness: awake, oriented to person, oriented to place and oriented to time HEENT normocephalic, head/scalp atraumatic and moist oral mucous membranes Eyes PERRL, EOMs intact bilaterally and conjunctivae normal Neck supple, no JVD, thyroid normal and no carotid bruits General: trachea midline Resp Resp Narrative: Patient's respirations are shallow at times and rapid, breath sounds are diminished bilaterally Auscultation: Negative for rales, rhonchi or wheezes Cardio S1 normal heart sound, S2 normal heart sound, no murmurs, no rub and no gallops Cardio Narrative: Heart rate and rhythm is irregular GI normal to inspection, nondistended, normoactive bowel sounds, soft to palpation, non-tender and non-distended Extremity Extremity Narrative: Generalized edema is noted over the lower extremities bilaterally Skin no rashes or lesions noted General Skin Exam: no breakdown Neuro oriented x3, CN's II-XII intact bilaterally, moves all extremities, no focal motor deficits and no sensory deficits noted Sensorium / Orientation: awake and alert Speech: speech normal Psych affect normal Weight / BMI Weight Weight: 89.8 kg Body Mass Index (BMI) 30.1 ABG / Lab / Microbiology Data 02/18/25 05:33 02/18/25 05:33 Laboratory: Laboratory Results - last 24 hr 02/17/25 16:52: POC Glucose 144 H 02/17/25 22:28: POC Glucose 164 H 02/18/25 05:33: WBC 12.9 H, RBC 3.24 L, Hgb 10.6 L, Hct 30.7 L, MCV 94.8 H, MCH 32.7 H, MCHC 34.5 D, RDW Std Deviation 46.4 H, RDW Coeff of Justin 14.5, Plt Count 567 H, MPV 10.0, Immature Gran % (Auto) 1.100 H, Neut % (Auto) 83.4 H, Lymph % (Auto) 6.4 L, Dent % (Auto) 8.4, Eos % (Auto) 0.5, Baso % (Auto) 0.2, Absolute Neuts (auto) 10.7 H, Absolute Lymphs (auto) 0.82 L, Nucleated RBC % 0.4, Sodium 134, Potassium 4.7, Chloride 95 L, Carbon Dioxide 25.9, Anion Gap 13, BUN 56 H, Creatinine 2.35 H, Estim Creat Clear Calc 24.11 L, Est GFR (MDRD) Non-Af 26 L, B UN/Creatinine Ratio 23.8 H, Glucose 156 H, Calcium 9.9 02/18/25 07:58: POC Glucose 155 H 02/18/25 11:23: POC Glucose 154 H Microbiology: Microbiology 02/15/25 07:00 Mucosa - Nose Respiratory Panel (PCR) - Final 02/15/25 03:43 Mucosa - Nose SARS-CoV-2, Influenza & RSV (PCR) - Final D/C Instructions Discharge Diet: 1800 Calorie Control Diet Weight Bearing Status: Full weight bearing DC O2, CPAP, BIPAP Needs Home O2 Discharge instructions: No Meaningful Use Info Meaningful Use Meaningful Use Diagnoses (Choose all that apply): CHF CHF SILVANO/ARB ordered at discharge?: Yes Documented LVEF (%): 40 Ischemic Stroke Statin Dosing Therapy Reference: STATIN DOSE THERAPY REFERENCE: * Patients > 75 years receive moderate or high dose statin therapy. * Patients 75 years or YOUNGER should receive HIGH intensity statin dose unless contraindicated. You will be required to document reason for non-treatment if statin daily dose does not meet guidelines. HIGH DOSE STATIN THERAPY DAILY Atorvastatin > than or = to 40 mg Rosuvastatin > than or = to 20 mg Amlodipine + Atorvastatin > than or = to 2.5/40 mg Ezetimibe + Simvastatin 10/80 mg Simvastatin 80mg Discharge Plan Admission Admit Date/Time: 02/15/25 04:56 Primary Reason for Your Visit: Congestive heart failure Attending Provider: Inocencio Perkins Primary Care Provider: Carolynn Whitman Consulting Providers: Raymond Teague Discharge Orders/Prescriptions Prescriptions: New aspirin 81 mg Tablet,Delayed Release (Dr/Ec) 81 mg PO BREAKFAST Qty: 0 0RF carvedilol 3.125 mg Tablet 3.125 mg PO BIDCM Qty: 60 0RF gabapentin 300 mg Capsule 300 mg PO QHS Qty: 30 0RF lactulose 10 gram/15 mL Solution 20 g PO DAILY Qty: 946 0RF losartan 25 mg Tablet 25 mg PO DAILY Qty: 30 0RF potassium chloride 10 mEq Tablet,Er Particles/Crystals 20 meq PO BIDCM Qty: 60 0RF torsemide 20 mg tablet 20 mg PO BID Qty: 60 0RF Continued (DME) handicap placcard Qty: 1 0RF Rx Instructions: Lifetime: debility coenzyme Q10 [Co Q-10] 100 mg capsule 100 mg PO DAILY cholecalciferol (vitamin D3) 100 mcg (4,000 unit) tablet 100 mcg PO DAILY (DME) spacer See Rx Instructions .ROUTE .MEDSUPPLY Qty: 1 0RF Rx Instructions: As directed (DME) ankita [facility] [place] See Rx Instructions .Route Qty: 180 1RF Rx Instructions: twice daily tamsulosin 0.4 mg capsule 0.4 mg PO DAILY Patient Comments: PT TAKES SOMETIMES pantoprazole 40 mg tablet,delayed release (DR/EC) 40 mg PO DAILY Qty: 90 1RF (DME) FreeStyle Dwight 3 [place] [facility] [place] See Rx Instructions .Route Qty: 1 0RF Rx Instructions: As directed finasteride 5 mg tablet 5 mg PO DAILY Patient Comments: PT TAKES AT NIGHT ipratropium bromide 21 mcg (0.03 %) spray,non-aerosol 2 spray intranasal BID PRN (Reason: allergy symptoms) Rx Instructions: administer into each nostril ipratropium-albuterol 0.5 mg-3 mg(2.5 mg base)/3 mL solution for nebulization 3 ml inhalation TID Rx Instructions: 3 mL inhaled; loratadine [Allergy Relief (loratadine)] 10 mg tablet 10 mg PO DAILY insulin glargine [Lantus Solostar U-100 Insulin] 100 unit/mL (3 mL) insulin pen 22 unit subcut DAILY montelukast 10 mg tablet 10 mg PO QHS Qty: 90 3RF atorvastatin 40 mg tablet 40 mg PO QODAY Qty: 45 3RF Patient Comments: PT TAKES IN EVENING insulin aspart U-100 [Novolog PenFill U-100 Insulin] 100 unit/mL cartridge 10 unit subcut TID Qty: 15 1RF Rx Instructions: hold if glucose is under 130 (DME) handicap placard See Rx Instructions .ROUTE .MEDSUPPLY Qty: 1 0RF Rx Instructions: Length of time: 5 years Diganosis: Impaired physical mobility budesonide-formoterol [Symbicort] 160-4.5 mcg/actuation HFA aerosol inhaler 2 puff inhalation BID Qty: 3 3RF Rx Instructions: administer with spacer, rinse mouth after each use Eliquis 2.5 mg tablet 2.5 mg PO BID Qty: 180 4RF (DME) OneTouch Ultra Test Strip See Rx Instructions .Route Qty: 180 1RF Rx Instructions: Check three to four times a day. albuterol sulfate [Ventolin HFA] 90 mcg/actuation HFA aerosol inhaler 2 inh INHALATION Q4H PRN (Reason: shortness of breath or wheezing) Qty: 18 6RF ranolazine 500 mg tablet extended release 12 hr 500 mg PO BID Qty: 180 3RF hydralazine 100 mg tablet 100 mg PO BID Qty: 180 3RF ropinirole 1 mg tablet 3 mg PO QHS Qty: 90 11RF Rx Instructions: administer 2-3 tablets, 1-3 hours before bedtime (DME) [employer] Dwight 3 Plus Sensor Device See Rx Instructions .Route Qty: 3 0RF Rx Instructions: As directed (DME) pen needle, diabetic [Unifine Pentips] 31 gauge x 1/4 needle See Rx Instructions .ROUTE .COMPLEX Qty: 100 1RF Dose Instruction: use 3 TO 4 needles daily Rx Instructions: use 3 TO 4 needles daily nitroglycerin [Nitrostat] 0.4 mg tablet, sublingual 0.4 mg SUBLINGUAL Q5-15M PRN (Reason: chest pain) Qty: 25 2RF Changed ferrous sulfate [FeroSul] 325 mg (65 mg iron) tablet 325 mg PO DAILY Qty: 30 0RF Rx Instructions: 1 tablet daily Discontinued lactulose 20 gram/30 mL solution 20 g PO BID PRN (Reason: constipation) Patient Comments: pt states he takes it sometimes daily Rx Instructions: 30 ml once or twice daily for constipation gabapentin 100 mg capsule 100 mg PO DAILY Patient Comments: PT TAKES AT BEDTIME furosemide 20 mg tablet 40 mg PO BID Referrals / Follow Up: Carolynn Whitman MD [Primary Care Provider] - Laura Farias PA [Med Staff - [facility]] - See Referral Note (In 2 weeks, call for an appointment) Disposition Disposition (needs filled in before D/C Order can be placed): Home, Self Care Charges/Coding Visit Charges Inpatient E&M: 15706 Disch Hosp >30min
--- NOTE | 2025-02-18 15:15 | CASEMGMT ---
Patient has order for discharge. Patient independent in room. Patient denies needs or help at discharge and [facility]. Patient had no further questions or concerns.
[2025-02-18 15:57] VITALS: BP 114/71; PULSE 71; RESP 18; TEMP 36.7; O2SAT 94
[2025-02-18 17:26] LABS: Bedside Glucose 191 mg/dL (74-106)
[2025-02-18] MEDS: Acetaminophen 325 MG Tablet 650 MG PO (18:21)
== END 2025-02-18 19:05 | disposition home or self-care (01) | DRG 291 ==
LOC: ED 04:15 → PCU 04:22
PROVIDERS: Admitting Provider Internal Medicine; Emergency Provider Emergency Medicine; PCP Internal Medicine; Visit Provider Internal Medicine
DX: I13.0 Hypertensive heart and chronic kidney disease with heart failure and stage 1 through stage 4 chronic kidney disease, or unspecified chronic kidney disease (principal); I50.23 Acute on chronic systolic (congestive) heart failure; J44.0 Chronic obstructive pulmonary disease with (acute) lower respiratory infection; I24.89 Other forms of acute ischemic heart disease; I48.20 Chronic atrial fibrillation, unspecified; G25.9 Extrapyramidal and movement disorder, unspecified; D50.9 Iron deficiency anemia, unspecified; I42.9 Cardiomyopathy, unspecified; E11.22 Type 2 diabetes mellitus with diabetic chronic kidney disease; G25.81 Restless legs syndrome; N18.32 Chronic kidney disease, stage 3b; E66.9 Obesity, unspecified; E11.40 Type 2 diabetes mellitus with diabetic neuropathy, unspecified; E11.51 Type 2 diabetes mellitus with diabetic peripheral angiopathy without gangrene; I25.10 Atherosclerotic heart disease of native coronary artery without angina pectoris; G47.33 Obstructive sleep apnea (adult) (pediatric); E78.5 Hyperlipidemia, unspecified; K21.9 Gastro-esophageal reflux disease without esophagitis; M19.90 Unspecified osteoarthritis, unspecified site; Z79.4 Long term (current) use of insulin; I25.2 Old myocardial infarction; J20.9 Acute bronchitis, unspecified; Z79.01 Long term (current) use of anticoagulants; R79.89 Other specified abnormal findings of blood chemistry; N40.0 Benign prostatic hyperplasia without lower urinary tract symptoms; Z79.51 Long term (current) use of inhaled steroids; Z79.899 Other long term (current) drug therapy; Z87.891 Personal history of nicotine dependence; Z95.5 Presence of coronary angioplasty implant and graft; Z68.32 Body mass index [BMI] 32.0-32.9, adult
CPT/HCPCS: 36415; 70450; 70553; 71046; 80048; 80053; 80061; 82728; 82962; 83036; 83540; 83550; 83735; 83880; 84100; 84443; 84484; 85025; 87631; 87633; 93005; 93306; 94640; 94668; 99285; A9575; Q9957; A4216; J1940; J2916

== ENCOUNTER 2025-02-19 15:52 | Inpatient (IN) | payer MEDICARE, SELFPAY ==
[2025-02-19] VITALS (17 sets, daily range): BP systolic 132–163; BP diastolic 57–79; PULSE 67–78; RESP 16–25; TEMP 36.4–37; O2SAT 89–96; BMI 30.9; BMI 30.3
--- NOTE | 2025-02-19 16:00 | EDS_ITS ---
HPI <DEBI Barraza - Last Filed: 02/19/25 19:30> History of Present Illness Chief Complaint: General Illness Narrative Narrative: 89-year-old male with PMH of HTN, HLD, DM2, CHF, A-fib, anemia, CKD, cardiomyopathy, pulmonary hypertension presents with generalized weakness. He was admitted from 02/15 through 02/18 for CHF exacerbation. He went home yesterday and his states he can barely get around with his walker and he is just generally weak. He has been arguing with her about taking his medications. He was supposed to take 6 units of insulin before lunch but only agreed to take 3 units etc. He was able to ambulate to the bathroom with his walker but when trying to get back in his chair almost fell. She called EMS and they had to lift him onto the cot because he felt so generally weak. He has had ongoing breathing issues from his CHF and COPD. This has not changed since hospitalization. He wears a BiPAP at night. He also has a tremor for the last several months with a possible undiagnosed movement disorder. He saw [facility] during his stay and is trialing gabapentin. No other acute changes since he left. PFS <DEBI Barraza - Last Filed: 02/19/25 19:30> [facility] Medical History Right carotid bruit Stable angina Kidney disease GERD (gastroesophageal reflux disease) Irregular heart beat Myocardial infarct Complicated urinary tract infection Urinary tract infection Colonic mass Controlled type 2 diabetes mellitus Acute respiratory insufficiency Chronic kidney disease Chronic anemia Bilateral edema of lower extremity Urinary retention Fatigue Pleural effusion (HFpEF) heart failure with preserved ejection fraction Pneumonia Colon polyp Lightheadedness Chronic constipation Anemia Obstructive sleep apnea Coronary artery disease Gastroesophageal reflux disease Allergic rhinitis Hyperlipidemia Urinary retention Wears hearing aid Wears dentures Wears glasses Cancer History of steroid therapy Ambulates with cane Walker as ambulation aid Arthritis Kidney stone Easy bruising Back pain Injury of back History of hiatal hernia Former smoker BiPAP (biphasic positive airway pressure) dependence Asthma Hoarseness Chronic cough Leg cramps History of pain when walking History of stress test History of heart attack History of irregular heartbeat Recurrent urinary tract infection ALMEIDA (dyspnea on exertion) Chest pain Right leg swelling Patellar bursitis of right knee Asthma-COPD overlap syndrome Abdominal aortic aneurysm (AAA) Peripheral vascular disease of extremity with claudication Rectus sheath hematoma Pre-syncope Essential (primary) hypertension Restless legs syndrome Daytime hypersomnia Somatic dysfunction of pelvic region DDD (degenerative disc disease), lumbar Overweight Seasonal allergies Carotid bruit Atherosclerotic heart disease of resighini coronary artery without angina pectoris PVD (peripheral vascular disease) COPD (chronic obstructive pulmonary disease) Home Medications ?Medication ?Instructions ?Recorded ?Last Taken ?Type handicap placcard #1 ea 09/28/19 Unknown Rx coenzyme Q10 100 mg capsule (Co 100 mg PO DAILY supple ment 05/03/20 01/29/25 History Q-10) cholecalciferol (vitamin D3) 100 100 mcg PO DAILY supp lement 11/03/20 01/29/25 History mcg (4,000 unit) tablet spacer #1 ea 01/12/21 Unknown Rx lancets #180 ea 07/18/23 Unknown Rx montelukast 10 mg tablet 10 mg PO QHS Respiratory #90 tabs 05/04/24 02/18/25 Rx atorvastatin 40 mg tablet 40 mg PO QODAY cholesterol # 45 tabs 05/13/24 01/27/25 Rx tamsulosin 0.4 mg capsule 0.4 mg PO DAILY 06/01/24 History finasteride 5 mg tablet 5 mg PO DAILY 06/28/2401/28 History insulin aspart U-100 100 unit/mL 10 unit (0.1 mL) subc ut TID #15 mL 10/07/24 01/29/25 Rx subcutaneous cartridge (Novolog PenFill U-100 Insulin aspart) handicap placard #1 ea 10/12/24 Unknown Rx budesonide-formoterol HFA 160 2 puff inhalation BID co pd #3 ea 10/16/24 01/28/25 Rx mcg-4.5 mcg/actuation aerosol inhaler (Symbicort) pantoprazole 40 mg tablet,delayed 40 mg PO DAILY reflu x #90 tabs 11/30/24 01/29/25 Rx release apixaban 2.5 mg tablet (Eliquis) 2.5 mg PO BID atrial fibrillation 12/14/24 02/19/25 Rx #180 tabs ipratropium bromide 21 mcg (0.03 2 spray intranasal BI D PRN allergy 12/14/24 Unknown History %) nasal spray symptoms blood sugar diagnostic (OneTouch #180 ea 12/21/24 Unkn own Rx Ultra Test strips) albuterol sulfate 90 mcg/actuation 2 inh inhalation Q4 H PRN shortness 01/04/25 01/28/25 Rx aerosol inhaler (Ventolin HFA) of breath or wheezing # 18 grams hydralazine 100 mg tablet 100 mg PO BID hypertension # 180 01/26/25 02/19/25 Rx tabs ranolazine 500 mg tablet,extended 500 mg PO BID #180 t abs 01/26/25 02/19/25 Rx release,12 hr ropinirole 1 mg tablet 3 mg (3 x 1 mg) PO QHS restl ess 01/26/25 02/18/25 Rx leg #90 tabs ipratropium 0.5 mg-albuterol 3 mg 3 ml inhalation TID SOB &/OR 01/29/25 01/28/25 History (2.5 mg base)/3 mL nebulization WHEEZING soln loratadine 10 mg tablet (Allergy 10 mg PO DAILY allerg ies 01/29/25 01/28/25 History Relief (loratadine)) 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,frankfurter inspector,cont #1 ea 02/01/25 Unknown Rx (FreeStyle [place] 3 [place]) 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 sensor (FreeStyle #3 ea 02/10/25 Unknown Rx Dwight 3 Plus Sensor device) insulin glargine 100 unit/mL (3 22 unit subcut DAILY 0 02/15/25 Unknown History mL) subcutaneous pen (Lantus Solostar U-100 Insulin) nitroglycerin 0.4 mg sublingual 0.4 mg sublingual Q5-1 5M PRN chest 02/15/25 Unknown Rx tablet (Nitrostat) pain #25 tabs pen needle, diabetic 31 gauge x #100 ea 02/15/25 Unkno wn Rx 1/ (Unifine Pentips) aspirin 81 mg tablet,delayed 81 mg PO BREAKFAST #0 tab s 02/18/25 Unknown Rx release carvedilol 3.125 mg tablet 3.125 mg PO BIDCM #60 tabs 02/18/25 02/19/25 Rx ferrous sulfate 325 mg (65 mg 325 mg PO DAILY low iron #30 tabs 02/18/25 Unknown Rx iron) tablet (FeroSul) gabapentin 300 mg capsule 300 mg PO QHS #30 caps 02/18 Unknown Rx lactulose 10 gram/15 mL oral 20 g (30 mL) PO DAILY #94 6 mL 02/18/25 Unknown Rx solution losartan 25 mg tablet 25 mg PO DAILY #30 tabs 02/04 02/28 Unknown Rx potassium chloride 10 mEq 20 meq (2 x 10 mEq) PO BIDCM #60 02/18/25 Unknown Rx tablet,extended release(part/cryst) tabs torsemide 20 mg tablet 20 mg PO BID #60 tabs Unknown Rx Allergy/AdvReac Type Severity Reaction Status Date / Time cilostazol (From Pletal) Allergy Unknown Verified 02/19/25 15:53 felodipine Allergy Hives Verified 02/19/25 15:53 levofloxacin Allergy Hives Verified 02/19/25 15:53 Sulfa (Sulfonamide Allergy Unknown Verified 02/19/25 15:53 Antibiotics) isosorbide AdvReac Intermediate low BP Verified 02/19/25 15:53 Family History Father Diabetes Cancer Prostate cancer Mother Dementia Brother Parkinsons Brother Cancer H/O vascular surgery Surgical History History of appendectomy History of surgical procedure H/O vascular surgery History of surgical procedure History of transurethral resection of prostate History of endarterectomy (07/2018) History of left heart catheterization (03/2014) History of coronary artery stent placement (02/17/08) History of vascular surgery (08/2018) History of hernia repair H/O aortic aneurysm repair (11/1998) Social History household members: spouse 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 status: 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 Smoking Status: Former smoker quit date: 08/07/08 pack-years: 2 Tobacco: How many years used: 52 Electronic Cigarette Use: not used how long ago did patient quit smokin years ago alcohol intake: current alcohol intake frequency: holidays/special occasions only details: hx of alcohol abuse substance use type: does not use caffeine: No what type of physical activity do you participate in: other details: Nustep frequency: 5-6 times per week duration: 15-30 minutes/day seatbelt use: always do you feel safe at home: Yes ROS <DEBI Barraza - Last Filed: 02/19/25 19:30> ROS ED ROS Narrative Constitutional: Negative for fever, chills, malaise. CVS: Negative for chest pain, syncope. Respiratory: Positive for shortness of breath, cough GI: Negative for abdominal pain, nausea, vomiting, diarrhea. EXAM <DEBI Barraza - Last Filed: 02/19/25 19:30> Physical Exam Narrative Exam Narrative: CONST: Patient sitting in no acute distress. EYES: Normal inspection. ENT: Normal inspection, moist mucous membranes. NECK: Normal inspection. RESP: Inspiratory and expiratory wheezing. CVS: Regular rate and rhythm, no murmur, no gallop. ABD: Soft and nontender, no guarding or rebound, nondistended. SKIN: Color normal, no rash, warm, dry, intact. EXTREMITIES: Normal appearance, no pedal edema. NEURO: Alert and oriented x 4, answering questions appropriately. Hard to understand his speech since dentures are out. PSYCH: Normal affect. Const Vital Signs: 02/19/25 15:53 02/19/25 15:56 02/19/25 15:56 Temperature 98.2 F 98.2 F Temperature Source Oral Oral Pulse Rate 73 72 Respiratory Rate 20 H 20 H Respiratory Effort Normal Respiratory Pattern Normal Blood Pressure 133/57 H 133/57 H Blood Pressure Mean 82 82 Pulse Ox 94 94 Oxygen Delivery Method Room Air Room Air 02/19/25 16:22 02/19/25 17:00 02/19/25 18:00 Temperature 98.6 F 98.5 F Temperature Source Oral Oral Pulse Rate 67 75 70 Respiratory Rate 16 18 18 Respiratory Effort Respiratory Pattern Normal Blood Pressure 137/78 H 158/79 H Blood Pressure Mean 97 105 Pulse Ox 96 92 Oxygen Delivery Method Room Air Room Air 02/19/25 19:00 Temperature 98.4 F Temperature Source Oral Pulse Rate 77 Respiratory Rate 25 H Respiratory Effort Respiratory Pattern Blood Pressure 133/78 H Blood Pressure Mean 96 Pulse Ox 94 Oxygen Delivery Method Room Air <Dr. Enzo Chu DO - Last Filed: 02/19/25 19:52> Physical Exam Const Vital Signs: 02/19/25 15:53 02/19/25 15:56 02/19/25 15:56 Temperature 98.2 F 98.2 F Temperature Source Oral Oral Pulse Rate 73 72 Respiratory Rate 20 H 20 H Respiratory Effort Normal Respiratory Pattern Normal Blood Pressure 133/57 H 133/57 H Blood Pressure Mean 82 82 Pulse Ox 94 94 Oxygen Delivery Method Room Air Room Air 02/19/25 16:22 02/19/25 17:00 02/19/25 18:00 Temperature 98.6 F 98.5 F Temperature Source Oral Oral Pulse Rate 67 75 70 Respiratory Rate 16 18 18 Respiratory Effort Respiratory Pattern Normal Blood Pressure 137/78 H 158/79 H Blood Pressure Mean 97 105 Pulse Ox 96 92 Oxygen Delivery Method Room Air Room Air 02/19/25 19:00 Temperature 98.4 F Temperature Source Oral Pulse Rate 77 Respiratory Rate 25 H Respiratory Effort Respiratory Pattern Blood Pressure 133/78 H Blood Pressure Mean 96 Pulse Ox 94 Oxygen Delivery Method Room Air [facility] <DEBI Barraza - Last Filed: 02/19/25 19:30> [facility] Narrative Medical decision making narrative: History gathered from: Patient and 89-year-old male presents for generalized weakness. He was discharged from the hospital yesterday after treatment for CHF exacerbation. He has labored breathing with inspiratory and expiratory wheezing but his said he always sounds like that. He is fully awake and alert with no focal neurological deficits. I ordered a DuoNeb and VBG which shows no abnormalities. He did seem to have some improvement after aerosols. CBC is stable with WBC of 12.2, hemoglobin 10.9, platelets 523. There is new hyperkalemia at 5.6 and acute on chronic kidney injury with BUN 72, creatinine 3.09 likely from recent diuresis (previously 56/2.35). EKG shows atrial flutter which is chronic and there are no hyperkalemic changes. Troponin is elevated at 271?it previously was 83. He has no chest pain so I suspect this is higher from his worsening kidney function. BNP is trending down and on my review the CXR looks slightly improved from prior CHF exacerbation. Elevated potassium was treated with albuterol and insulin. Glucose is 129 so he was given insulin and a meal. I think patient requires admission due to his worsening kidney function and generalized weakness. states prior to his recent admission he could ambulate without a walker and now he is using a walker and he cannot really get around their home. I discussed the case with social work but he cannot be placed from the ED. I discussed with the hospitalist for admission. Lab Data Attestation: I reviewed the patient's lab results. Labs: Laboratory Results - last 24 hr 02/19/25 02/19/25 16:00 18:12 WBC 12.2 H RBC 3.74 L Hgb 10.9 L Hct 34.5 L MCV 92.2 MCH 29.1 MCHC 31.6 L D RDW Std Deviation 48.0 H RDW Coeff of Justin 15.0 H Plt Count 523 H MPV 10.3 Immature Gran % (Auto) 2.100 H Neut % (Auto) 80.8 H Lymph % (Auto) 5.2 L Mccurtain % (Auto) 10.5 H Eos % (Auto) 1.0 Baso % (Auto) 0.4 Absolute Neuts (auto) 9.8 H Absolute Lymphs (auto) 0.63 L Nucleated RBC % 0.4 Sodium 133 Potassium 5.6 H Chloride 95 L Carbon Dioxide 24.3 Anion Gap 14 BUN 72 H Creatinine 3.09 H Estim Creat Clear Calc 18.57 L Est GFR (MDRD) Non-Af 19 L BUN/Creatinine Ratio 23.3 H Glucose 129 H Calcium 9.9 Troponin T High Sens 271 H* D NT pro BNP II 5205 H POC Glucose 151 H ABG Data ABG results: ABG 02/19/25 16:54 Specimen Type YURY Sample Site Not entered VBG pH 7.41 VBG pO2 35 VBG HCO3 28 H VBG Total CO2 29 VBG O2 Sat (Calc) 67 VBG Base Excess 3 POC Mix VBG pCO2 Pt Tmp 44.4 O2 Delivery Device Not entered Radiography Diagnostic Testing: Clinical Impression(s) from Imaging Studies Chest X-Ray 02/19/25 16:15 IMPRESSION: Findings suggestive of vascular congestion. Reading Location: [facility] <Dr. Enzo Chu, DO - Last Filed: 02/19/25 19:52> [facility] Narrative Medical decision making narrative: History gathered from: Patient and 89-year-old male presents for generalized weakness. He was discharged from the hospital yesterday after treatment for CHF exacerbation. He has labored breathing with inspiratory and expiratory wheezing but his said he always sounds like that. He is fully awake and alert with no focal neurological deficits. I ordered a DuoNeb and VBG which shows no abnormalities. He did seem to have some improvement after aerosols. CBC is stable with WBC of 12.2, hemoglobin 10.9, platelets 523. There is new hyperkalemia at 5.6 and acute on chronic kidney injury with BUN 72, creatinine 3.09 likely from recent diuresis (previously 56/2.35). EKG shows atrial flutter which is chronic and there are no hyperkalemic changes. Troponin is elevated at 271?it previously was 83. He has no chest pain so I suspect this is higher from his worsening kidney function. BNP is trending down and on my review the CXR looks slightly improved from prior CHF exacerbation. Elevated potassium was treated with albuterol and insulin. Glucose is 129 so he was given insulin and a meal. I think patient requires admission due to his worsening kidney function and generalized weakness. states prior to his recent admission he could ambulate without a walker and now he is using a walker and he cannot really get around their home. I discussed the case with social work but he cannot be placed from the ED. I discussed with the hospitalist for admission. ED attending note: I evaluated the patient in conjunction with the AIDA. I agree with his/her statements and above findings. I have personally performed a face to face assessment of the patient and have reviewed the AIDA Note. I performed a substantive portion of the visit including all aspects of the following. I personally saw the patient performed chart review, physical exam, reviewed labs, imaging (if obtained), and formulated a treatment and management plan. History and physical exam as documented above: The patient's chest x-ray was read reviewed personally by myself showed evidence of pulmonary vascular congestion but no evidence of obvious pneumonia. Radi ology agrees my interpretation. The patient's EKG showed no obvious STEMI despite elevated troponin value. BNP elevated consistent with volume overload CBC with no significant anemia VBG without evidence of significant respiratory acidosis or CO2 retention BMP concerning for hyperkalemia as well as acute NARENDRA on CKD Will treat hyperkalemia with insulin and albuterol. Will admit the patient given elevated troponin, hyperkalemia and NARENDRA on CKD. This note was generated with elmenusation software. It may contain incorrect words, spelling, and punctuation that were not noted in review of the chart prior to signing. Lab Data Labs: Laboratory Results - last 24 hr 02/19/25 02/19/25 16:00 18:12 WBC 12.2 H RBC 3.74 L Hgb 10.9 L Hct 34.5 L MCV 92.2 MCH 29.1 MCHC 31.6 L D RDW Std Deviation 48.0 H RDW Coeff of Justin 15.0 H Plt Count 523 H MPV 10.3 Immature Gran % (Auto) 2.100 H Neut % (Auto) 80.8 H Lymph % (Auto) 5.2 L Mccurtain % (Auto) 10.5 H Eos % (Auto) 1.0 Baso % (Auto) 0.4 Absolute Neuts (auto) 9.8 H Absolute Lymphs (auto) 0.63 L Nucleated RBC % 0.4 Sodium 133 Potassium 5.6 H Chloride 95 L Carbon Dioxide 24.3 Anion Gap 14 BUN 72 H Creatinine 3.09 H Estim Creat Clear Calc 18.57 L Est GFR (MDRD) Non-Af 19 L BUN/Creatinine Ratio 23.3 H Glucose 129 H Calcium 9.9 Troponin T High Sens 271 H* D NT pro BNP II 5205 H POC Glucose 151 H ABG Data ABG results: ABG 02/19/25 16:54 Specimen Type YURY Sample Site Not entered VBG pH 7.41 VBG pO2 35 VBG HCO3 28 H VBG Total CO2 29 VBG O2 Sat (Calc) 67 VBG Base Excess 3 POC Mix VBG pCO2 Pt Tmp 44.4 O2 Delivery Device Not entered Radiography Diagnostic Testing: Clinical Impression(s) from Imaging Studies Chest X-Ray 02/19/25 16:15 IMPRESSION: Findings suggestive of vascular congestion. [facility] Triage Chief Complaint: General Illness ED Midlevel Provider: Aaliyah Collins ED Provider: Enzo Chu Dx/Rx/DC Orders Clinical Impression: Acute kidney injury, Acute hyperkalemia, Generalized weakness Prescriptions: No Action (DME) handicap placcard Qty: 1 0RF Rx Instructions: Lifetime: debility coenzyme Q10 [Co Q-10] 100 mg capsule 100 mg PO DAILY cholecalciferol (vitamin D3) 100 mcg (4,000 unit) tablet 100 mcg PO DAILY (DME) spacer See Rx Instructions .ROUTE .MEDSUPPLY Qty: 1 0RF Rx Instructions: As directed (DME) [facility] See Rx Instructions .Route Qty: 180 1RF Rx Instructions: twice daily tamsulosin 0.4 mg capsule 0.4 mg PO DAILY Patient Comments: PT TAKES SOMETIMES pantoprazole 40 mg tablet,delayed release (DR/EC) 40 mg PO DAILY Qty: 90 1RF (DME) FreeStyle Dwight [address] [place] [facility] See Rx Instructions .Route Qty: 1 0RF Rx Instructions: As directed finasteride 5 mg tablet 5 mg PO DAILY Patient Comments: PT TAKES AT NIGHT ipratropium bromide 21 mcg (0.03 %) spray,non-aerosol 2 spray intranasal BID PRN (Reason: allergy symptoms) Rx Instructions: administer into each nostril ipratropium-albuterol 0.5 mg-3 mg(2.5 mg base)/3 mL solution for nebulization 3 ml inhalation TID Rx Instructions: 3 mL inhaled; loratadine [Allergy Relief (loratadine)] 10 mg tablet 10 mg PO DAILY insulin glargine [Lantus Solostar U-100 Insulin] 100 unit/mL (3 mL) insulin pen 22 unit subcut DAILY aspirin 81 mg Tablet,Delayed Release (Dr/Ec) 81 mg PO BREAKFAST Qty: 0 0RF carvedilol 3.125 mg Tablet 3.125 mg PO BIDCM Qty: 60 0RF gabapentin 300 mg Capsule 300 mg PO QHS Qty: 30 0RF lactulose 10 gram/15 mL Solution 20 g PO DAILY Qty: 946 0RF losartan 25 mg Tablet 25 mg PO DAILY Qty: 30 0RF potassium chloride 10 mEq Tablet,Er Particles/Crystals 20 meq PO BIDCM Qty: 60 0RF torsemide 20 mg tablet 20 mg PO BID Qty: 60 0RF ferrous sulfate [FeroSul] 325 mg (65 mg iron) tablet 325 mg PO DAILY Qty: 30 0RF Rx Instructions: 1 tablet daily montelukast 10 mg tablet 10 mg PO QHS Qty: 90 3RF atorvastatin 40 mg tablet 40 mg PO QODAY Qty: 45 3RF Patient Comments: PT TAKES IN EVENING insulin aspart U-100 [Novolog PenFill U-100 Insulin] 100 unit/mL cartridge 10 unit subcut TID Qty: 15 1RF Rx Instructions: hold if glucose is under 130 (DME) handicap placard See Rx Instructions .ROUTE .MEDSUPPLY Qty: 1 0RF Rx Instructions: Length of time: 5 years Diganosis: Impaired physical mobility budesonide-formoterol [Symbicort] 160-4.5 mcg/actuation HFA aerosol inhaler 2 puff inhalation BID Qty: 3 3RF Rx Instructions: administer with spacer, rinse mouth after each use Eliquis 2.5 mg tablet 2.5 mg PO BID Qty: 180 4RF (DME) OneTouch Ultra Test Strip See Rx Instructions .Route Qty: 180 1RF Rx Instructions: Check three to four times a day. albuterol sulfate [Ventolin HFA] 90 mcg/actuation HFA aerosol inhaler 2 inh INHALATION Q4H PRN (Reason: shortness of breath or wheezing) Qty: 18 6RF ranolazine 500 mg tablet extended release 12 hr 500 mg PO BID Qty: 180 3RF hydralazine 100 mg tablet 100 mg PO BID Qty: 180 3RF ropinirole 1 mg tablet 3 mg PO QHS Qty: 90 11RF Rx Instructions: administer 2-3 tablets, 1-3 hours before bedtime (DME) FreeStyle Dwight 3 Plus Sensor Device See Rx Instructions .Route Qty: 3 0RF Rx Instructions: As directed (DME) pen needle, diabetic [Unifine Pentips] 31 gauge x 1/4 needle See Rx Instructions .ROUTE .COMPLEX Qty: 100 1RF Dose Instruction: use 3 TO 4 needles daily Rx Instructions: use 3 TO 4 needles daily nitroglycerin [Nitrostat] 0.4 mg tablet, sublingual 0.4 mg SUBLINGUAL Q5-15M PRN (Reason: chest pain) Qty: 25 2RF Primary Care Provider: Carolynn Whitman Referrals: Carolynn Whitman MD [Primary Care Provider] - Print Language: Hong Konger
--- NOTE | 2025-02-19 16:15 | RAD_ITS ---
PROCEDURE: CHEST 1 VIEW (PORTABLE) 02/19/2025 REASON FOR EXAM: DYSPNEA TECHNIQUE: Frontal view of the chest. COMPARISON: 02/15/2025 FINDINGS: Hardware: Right clavicular screw and plate fixation. Heart: Cardiomegaly. Lungs: Bibasilar atelectasis and mild bilateral interstitial thickening. No pneumothorax. No pleural effusion. Bones: Degenerative changes are identified within the thoracic spine. Other: RAD/Chest 1 View (Portable) IMPRESSION: Findings suggestive of vascular congestion. Reading Location: [facility]
--- NOTE | 2025-02-19 16:21 | EKG12_ITS ---
Test Reason : GENERAL Blood Pressure : */* mmHG Vent. Rate : 70 BPM Atrial Rate : 315 BPM P-R Int : * ms QRS Dur : 98 ms QT Int : 414 ms P-R-T Axes : * 20 -39 degrees QTcB Int : 447 ms Atrial flutter with variable A-V block Nonspecific T wave abnormality Abnormal ECG Confirmed by RIA SMITH, VICTORIANO ([id number]), design editor AMPARO MALHOTRA ([id number]) on 02/22/2025 8:48:29 AM Referred By: Hansel Gillis Confirmed By: VICTORIANO ROLLINS MD
[2025-02-19] MEDS: Ipratropium/Albuterol Sulfate 3 ML AMPUL.NEB INHALATION (16:22)
[2025-02-19 16:58] LABS: Blood Gas Specimen Type VEN; O2 Delivery Device Not entered; SITE Not entered; VBG BASE EXCESS 3 mmol/L (-1.0-3.5); VBG Bicarbonate 28 mmol/L (22-26); VBG PO2 35 mmHg (25-40); VBG SO2 67 % (50-70); VBG TCO2 29 mmol/L (23-33); VBG pCO2 44.4 mmHg (41-51); VBG pH 7.41 (7.32-7.42)
[2025-02-19 17:56] LABS: Anion Gap 14 (5-15); BUN 72 mg/dL (4-19); BUN/Creat Ratio 23.3 RATIO (10-20); Calcium,Total 9.9 mg/dL (7.6-11.0); Carbon Dioxide 24.3 mmol/L (21.0-32.0); Chloride 95 mmol/L (98-108); Creatinine, Serum 3.09 mg/dL (0.70-1.20); EST Glomerular Filtration Rate 19 (>60); Estimated Creatinine Clearance 18.57 ml/min (50-250); Glucose 129 mg/dL (70-99); Potassium 5.6 mmol/L (3.3-5.1); Sodium Level 133 mmol/L (133-145)
[2025-02-19 18:02] LABS: Pro- Brain NATRIURETIC PEPTIDE 5205 pg/mL (<=1800)
[2025-02-19] MEDS: Insulin Lispro 100 UNIT/ML INSULN.PEN SC (18:15)
[2025-02-19 18:17] LABS: Troponin T High Sensitivity 271 ng/L (<=22)
[2025-02-19 18:32] LABS: Absolute Lymphocyte Count 0.63 X10^3/uL (0.83-4.51); Absolute Neutrophil Count 9.8 X10^3/uL (2.0-7.7); Basophil# 0.05 X10^3/uL; Basophil% 0.4 % (0-1); Eosinophil# 0.12 X10^3/uL; Hematocrit 34.5 % (40-54); Hemoglobin 10.9 g/dL (13.0-16.5); Lymphocyte # 0.63 X10^3/ul (0.83-4.51); Lymphocyte % 5.2 % (19-41); Mean Corp Hgb Conc 31.6 g/dL (32-36); Mean Corpuscular Hgb 29.1 pg (27.0-32.0); Mean Corpuscular Volume 92.2 fL (80-94); Mean Platelet Vol. 10.3 fl (6.2-12.0); Monocyte# 1.28 X10^3/uL; Monocyte% 10.5 % (0-10); NRBC Flagged by Analyzer 0.4 % (0-5); Neutrophil # 9.84 X10^3/uL (2.7-7.7); Neutrophil % 80.8 % (47-70); Platelet Count 523 K/mm3 (150-450); Red Blood Count 3.74 M/mm3 (4.6-6.2); White Blood Count 12.2 K/mm3 (4.4-11.0)
[2025-02-19 18:35] LABS: Bedside Glucose 151 mg/dL (74-106)
--- NOTE | 2025-02-19 20:00 | PCM.HP.STD ---
[facility] - General General Date of Admission: 02/19/25 Date of Service: 02/19/25 Chief Complaint: Acute kidney injury HPI Narrative DESIREE ROSAS, is a 89 M with past medical history of congestive heart failure, recently discharged after management for acute decompensated heart failure on 02/18/2025, hypertension, dyslipidemia, obesity, MARIXA, type 2 diabetes, diabetic neuropathy, coronary artery disease s/p distal RCA stent on ranolazine, chronic atrial fibrillation/flutter, history of AAA repair, prior tobacco use, COPD, CKD with baseline creatinine around 2.3, iron deficiency anemia, peripheral vascular disease who presents to the ED with concerns regarding progressive fatigue since his discharge and persistent difficulty breathing. Patient was discharged yesterday after being managed for acute decompensated heart failure with heart failure with reduced ejection fraction he was started on Lasix and discharged on torsemide 20 mg twice daily as well as losartan daily. With the diuretics and optimization of his goal-directed medical therapy his oxygen requirement had improved and he was on room air and his pedal edema have improved. During his stay he was also evaluated by neurology for abnormal body movements. They restarted gabapentin 300 mg at night, scheduled melatonin, and healthy sleep hygiene was recommended. There was no clear etiology for his abnormal body movements. MRI brain showed moderate chronic microvascular ischemia and involutional changes with no suspicious intracranial mass, abnormal parenchymal or leptomeningeal enhancement. Since his discharge the notes that he has become more lethargic and tired and she finds it extremely difficult to take care of him at home. Also he notes his shortness of breath is intermittent and start markedly improved compared to prior presentation. Today at presentation, he was afebrile, blood pressure 133/57, respiratory rate was 20 and was satting about 94% on room air. WBC 12.2, hemoglobin 10.9, platelet 523, venous pH 7.4, bicarb 28, pCO2 29, potassium 5.6, BUN 72 [elevated from 56 at the time of discharge) and his creatinine was elevated to 3.09 from 2.3 at the time of discharge his NT proBNP is 5205 reduced from 22717 on 02/15/2025. [facility] Medical History Right carotid bruit Stable angina Kidney disease GERD (gastroesophageal reflux disease) Irregular heart beat Myocardial infarct Complicated urinary tract infection Urinary tract infection Colonic mass Controlled type 2 diabetes mellitus Acute respiratory insufficiency Chronic kidney disease Chronic anemia Bilateral edema of lower extremity Urinary retention Fatigue Pleural effusion (HFpEF) heart failure with preserved ejection fraction Pneumonia Colon polyp Lightheadedness Chronic constipation Anemia Obstructive sleep apnea Coronary artery disease Gastroesophageal reflux disease Allergic rhinitis Hyperlipidemia Urinary retention Wears hearing aid Wears dentures Wears glasses Cancer History of steroid therapy Ambulates with cane Walker as ambulation aid Arthritis Kidney stone Easy bruising Back pain Injury of back History of hiatal hernia Former smoker BiPAP (biphasic positive airway pressure) dependence Asthma Hoarseness Chronic cough Leg cramps History of pain when walking History of stress test History of heart attack History of irregular heartbeat Recurrent urinary tract infection ALMEIDA (dyspnea on exertion) Chest pain Right leg swelling Patellar bursitis of right knee Asthma-COPD overlap syndrome Abdominal aortic aneurysm (AAA) Peripheral vascular disease of extremity with claudication Rectus sheath hematoma Pre-syncope Essential (primary) hypertension Restless legs syndrome Daytime hypersomnia Somatic dysfunction of pelvic region DDD (degenerative disc disease), lumbar Overweight Seasonal allergies Carotid bruit Atherosclerotic heart disease of [place] coronary artery without angina pectoris PVD (peripheral vascular disease) COPD (chronic obstructive pulmonary disease) Home Medications ?Medication ?Instructions ?Recorded ?Last Taken ?Type handicap placcard #1 ea 09/28/19 Unknown Rx coenzyme Q10 100 mg capsule (Co 100 mg PO DAILY supplement 05/03/20 01/29/25 History Q-10) cholecalciferol (vitamin D3) 100 100 mcg PO DAILY supplement 11/03/20 01/29/25 History mcg (4,000 unit) tablet spacer #1 ea 01/12/21 Unknown Rx lancets #180 ea 07/18/23 Unknown Rx montelukast 10 mg tablet 10 mg PO QHS Respiratory #90 tabs 05/04/24 02/18/25 Rx atorvastatin 40 mg tablet 40 mg PO QODAY cholesterol #45 tabs 05/13/24 01/27/25 Rx tamsulosin 0.4 mg capsule 0.4 mg PO DAILY 06/01/24 01/22/25 History finasteride 5 mg tablet 5 mg PO DAILY 06/28/24 01/28/25 History insulin aspart U-100 100 unit/mL 10 unit (0.1 mL) subcut TID #15 mL 10/07/24 01/29/25 Rx subcutaneous cartridge (Novolog PenFill U-100 Insulin aspart) handicap placard #1 ea 10/12/24 Unknown Rx budesonide-formoterol HFA 160 2 puff inhalation BID copd #3 ea 10/16/24 01/28/25 Rx mcg-4.5 mcg/actuation aerosol inhaler (Symbicort) pantoprazole 40 mg tablet,delayed 40 mg PO DAILY reflux #90 tabs 11/30/24 01/29/25 Rx release apixaban 2.5 mg tablet (Eliquis) 2.5 mg PO BID atrial fibrillation 12/14/24 02/19/25 Rx #180 tabs ipratropium bromide 21 mcg (0.03 2 spray intranasal BID PRN allergy 12/14/24 Unknown History %) nasal spray symptoms blood sugar diagnostic (OneTouch #180 ea 12/21/24 Unknown Rx Ultra Test strips) albuterol sulfate 90 mcg/actuation 2 inh inhalation Q4H PRN shortness 01/04/25 01/28/25 Rx aerosol inhaler (Ventolin HFA) of breath or wheezing #18 grams hydralazine 100 mg tablet 100 mg PO BID hypertension #180 01/26/25 02/19/25 Rx tabs ranolazine 500 mg tablet,extended 500 mg PO BID #180 tabs 01/26/25 02/19/25 Rx release,12 hr ropinirole 1 mg tablet 3 mg (3 x 1 mg) PO QHS restless 01/26/25 02/18/25 Rx leg #90 tabs ipratropium 0.5 mg-albuterol 3 mg 3 ml inhalation TID SOB &/OR 01/29/25 01/28/25 History (2.5 mg base)/3 mL nebulization WHEEZING soln loratadine 10 mg tablet (Allergy 10 mg PO DAILY allergies 01/29/25 01/28/25 History Relief (loratadine)) 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,hearing aid repair technician,cont #1 ea 02/01/25 Unknown Rx (FreeStyle [place] 3 [place]) 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 sensor (FreeStyle #3 ea 02/10/25 Unknown Rx Dwight 3 Plus Sensor device) insulin glargine 100 unit/mL (3 22 unit subcut DAILY 02/15/25 Unknown History mL) subcutaneous pen (Lantus Solostar U-100 Insulin) nitroglycerin 0.4 mg sublingual 0.4 mg sublingual Q5-15M PRN chest 02/15/25 Unknown Rx tablet (Nitrostat) pain #25 tabs pen needle, diabetic 31 gauge x #100 ea 02/15/25 Unknown Rx 1/4 (Unifine Pentips) aspirin 81 mg tablet,delayed 81 mg PO BREAKFAST #0 tabs 02/18/25 Unknown Rx release carvedilol 3.125 mg tablet 3.125 mg PO BIDCM #60 tabs 02/18/25 02/19/25 Rx ferrous sulfate 325 mg (65 mg 325 mg PO DAILY low iron #30 tabs 02/18/25 Unknown Rx iron) tablet (FeroSul) gabapentin 300 mg capsule 300 mg PO QHS #30 caps 02/18/25 Unknown Rx lactulose 10 gram/15 mL oral 20 g (30 mL) PO DAILY #946 mL 02/18/25 Unknown Rx solution losartan 25 mg tablet 25 mg PO DAILY #30 tabs 02/18/25 Unknown Rx potassium chloride 10 mEq 20 meq (2 x 10 mEq) PO BIDCM #60 02/18/25 Unknown Rx tablet,extended release(part/cryst) tabs torsemide 20 mg tablet 20 mg PO BID #60 tabs 02/18/25 Unknown Rx Allergy/AdvReac Type Severity Reaction Status Date / Time cilostazol (From Pletal) Allergy Unknown Verified 02/19/25 15:53 felodipine Allergy Hives Verified 02/19/25 15:53 levofloxacin Allergy Hives Verified 02/19/25 15:53 Sulfa (Sulfonamide Allergy Unknown Verified 02/19/25 15:53 Antibiotics) isosorbide AdvReac Intermediate low BP Verified 02/19/25 15:53 Family History Father Diabetes Cancer Prostate cancer Mother Dementia Brother Parkinsons Brother Cancer H/O vascular surgery Surgical History History of appendectomy History of surgical procedure H/O vascular surgery History of surgical procedure History of transurethral resection of prostate History of endarterectomy (07/2018) History of left heart catheterization (03/2014) History of coronary artery stent placement (02/17/08) History of vascular surgery (08/2018) History of hernia repair H/O aortic aneurysm repair (11/1998) Social History household members: spouse 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 status: retired current occupation: [employer] Smoking Status: Former smoker quit date: 08/07/08 pack-years: 2 Tobacco: How many years used: 52 Electronic Cigarette Use: not used how long ago did patient quit smokin years ago alcohol intake: current alcohol intake frequency: holidays/special occasions only details: hx of alcohol abuse substance use type: does not use caffeine: No what type of physical activity do you participate in: other details: Nustep frequency: 5-6 times per week duration: 15-30 minutes/day seatbelt use: always do you feel safe at home: Yes ROS Review of Systems ROS Unobtainable: Denies due to encephalopathy, due to endotracheal tube, due to mental condition, due to mental status or other Constitutional Constitutional: Reports malaise and weakness Eyes Eyes: Denies blurry vision, change in eye color, change in vision, discharge from eye(s), double vision, erythema, eye pain, loss of vision or other ENT HEENT: Denies abnormal hearing, dysphagia, ear pain, epistaxis, headache(s), hearing loss, nasal congestion, nasal discharge, post nasal drip, sinus pressure, sore throat or other Cardiovascular Cardiovascular: Reports dyspnea on exertion and edema Respiratory/Chest Respiratory/Chest: Reports shortness of breath with exertion; Denies cough, dyspnea, excessive phlegm production, hemoptysis, productive cough, shortness of breath at rest, wheezing or other Gastrointestinal Gastrointestinal: Denies abdominal pain, coffee ground emesis, constipation, diarrhea, dyspepsia, hematemesis, hematochezia, loose stools, melena, nausea, vomiting or other Genitourinary Genitourinary: Denies burning urination, difficulty urinating, dysuria, hematuria, nocturia, urinary frequency, urinary hesitancy, urinary incontinence, urinary urgency or other Musculoskeletal Musculoskeletal: Reports arthralgias and back pain; Denies joint pain, joint stiffness, joint swelling, myalgias, neck pain or other Neurologic Neurologic: Denies abnormal gait, abnormal speech, confusion, disequilibrium, dizziness, focal weakness, headache(s), numbness, paresthesias, seizure-like activity, seizures, syncope, tingling, tremor(s) or other Psychiatric Psychiatric: Denies anxiety, depression, homicidal ideation, suicidal ideation or other Endocrine Endocrinology: Denies change in body appearance, cold intolerance, excessive sweating, heat intolerance, polydipsia, polyuria or other Hematologic/Lymphatic Hematologic/Lymphatic: Denies anemia, easy bleeding, easy bruising, lymphadenopathy or other Allergic/Immunologic Allergic/Immunologic: Denies rhinitis, hives, eczemia, asthma or other Vital Signs Vital Signs Vital Signs: 02/19/25 15:53 02/19/25 15:56 02/19/25 15:56 Temperature 98.2 F 98.2 F Temperature Source Oral Oral Pulse Rate 73 72 Respiratory Rate 20 H 20 H Respiratory Effort Normal Respiratory Pattern Normal Blood Pressure 133/57 H 133/57 H Blood Pressure Mean 82 82 Pulse Ox 94 94 Oxygen Delivery Method Room Air Room Air 02/19/25 16:22 02/19/25 17:00 02/19/25 18:00 Temperature 98.6 F 98.5 F Temperature Source Oral Oral Pulse Rate 67 75 70 Respiratory Rate 16 18 18 Respiratory Effort Respiratory Pattern Normal Blood Pressure 137/78 H 158/79 H Blood Pressure Mean 97 105 Pulse Ox 96 92 Oxygen Delivery Method Room Air Room Air 02/19/25 19:00 Temperature 98.4 F Temperature Source Oral Pulse Rate 77 Respiratory Rate 25 H Respiratory Effort Respiratory Pattern Blood Pressure 133/78 H Blood Pressure Mean 96 Pulse Ox 94 Oxygen Delivery Method Room Air Weight Weight: 203 lb 7.787 oz Body Mass Index (BMI) 30.9 Physical Exam Const alert, oriented x3 and no apparent distress HEENT normocephalic and head/scalp atraumatic Neck no lymphadenopathy Resp Resp Narrative: Bilateral wheezes present Cardio regular rate and regular rhythm GI normal to inspection, nondistended, normoactive bowel sounds Auscultation: hyperactive bowel sounds Extremity normal to inspection Neuro oriented x3, CN's II-XII intact bilaterally, moves all extremities and no focal motor deficits Neuro Narrative: No abnormal movements present at the time of examination Results Medical Records Data Attestation: I reviewed the patient's medical records Lab / Micro Data Attestation: I reviewed the patient's lab results. 02/19/25 16:00 02/20/25 00:44 Labs: Laboratory Results - last 24 hr 02/19/25 16:00: WBC 12.2 H, RBC 3.74 L, Hgb 10.9 L, Hct 34.5 L, MCV 92.2, MCH 29.1, MCHC 31.6 L D, RDW Std Deviation 48.0 H, RDW Coeff of Justin 15.0 H, Plt Count 523 H, MPV 10.3, Immature Gran % (Auto) 2.100 H, Neut % (Auto) 80.8 H, Lymph % (Auto) 5.2 L, [place] % (Auto) 10.5 H, Eos % (Auto) 1.0, Baso % (Auto) 0.4, Absolute Neuts (auto) 9.8 H, Absolute Lymphs (auto) 0.63 L, Nucleated RBC % 0.4, Sodium 133, Potassium 5.6 H, Chloride 95 L, Carbon Dioxide 24.3, Anion Gap 14, BUN 72 H, Creatinine 3.09 H, Estim Creat Clear Calc 18.57 L, Est GFR (MDRD) Non-Af 19 L, BUN/Creatinine Ratio 23.3 H, Glucose 129 H, Calcium 9.9, Troponin T High Sens 271 H* D, NT pro BNP II 5205 H 02/19/25 18:12: POC Glucose 151 H ABG Data ABG results: ABG 02/19/25 16:54 Specimen Type YURY Sample Site Not entered VBG pH 7.41 VBG pO2 35 VBG HCO3 28 H VBG Total CO2 29 VBG O2 Sat (Calc) 67 VBG Base Excess 3 POC Mix VBG pCO2 Pt Tmp 44.4 O2 Delivery Device Not entered Imaging Radiology Impression Chest X-Ray 02/19/25 16:15 IMPRESSION: Findings suggestive of vascular congestion. Reading Location: [facility] Assessment & Plan Assessment/Plan (1) Acute kidney injury: PLAN: Plan 89-year-old male who was recently discharged after management for acute decompensated heart failure is being readmitted for concerns regarding progressive weakness, hyperkalemia as well as NARENDRA on CKD. He has multiple past comorbidities that are contributing to the symptoms. #NARENDRA on CKD #Drug-induced (most likely) versus cardiorenal - There is an elevation in the BUN as well as creatinine from the baseline - This could be because of the ongoing diuresis and also could be because of losartan - Will hold off the diuretics for now and reassess his kidney function tomorrow - Given his precarious cardiac situation will not give him any fluids at this time - Unlikely to be cardiorenal as there has been an improvement in the BNP levels - Admit to PCU for further monitoring #Shortness of breath - Send viral PCR for COVID, influenza and respiratory panel - Continue home medications for now #Cardiomyopathy? Ischemic - Will continue losartan for now with close monitoring of the potassium - Hold off diuresis - Continue carvedilol 3.125 mg twice daily #Hyperkalemia - Likely secondary to losartan in the setting of CKD - Close monitoring of potassium - Albuterol 2.5 mg / 0.5 mL inhalation once - Repeat potassium levels #Coronary artery disease - Continue with neurology and as needed sublingual NTG - EKG was reviewed and no features of ischemia, patient is clinically asymptomatic - Elevated high-sensitivity troponin is likely because of the NARENDRA #COPD #Acute bronchitis - Continue home medications for now - Satting well on room air #Debility due to chronic illness - PT OT evaluation regarding placement to prison facility - endorses need for further support at home with time of discharge #A-fib - Continue carvedilol and Eliquis #Abnormal body movements - MRI was normal, continue gabapentin based on the recent neurology evaluation next #Type 2 diabetes - Continue home insulin with glargine, aspart #AAA repair: Noted #GERD: Continue home medication #Restless leg syndrome: Continue ropinirole #Iron-deficiency anemia - Continue ferrous sulfate supplementation #DVT prophylaxis - Continue apixaban #Code discussion: Full code
--- NOTE | 2025-02-19 20:27 | CM.ED ---
Social Work SW met with patient and patients . Patients stated that patient had discharged from [facility] yesterday, however patient had became so weak that he was unable to ambulate around his home. Patients states that she is unable to care for him at this time. Patient feels that he may need a SNF stay for rehab. Candy Hudson, TRANSMISSION INSPECTOR, CARGO SERVICE SUPERVISOR
[2025-02-19] MEDS: Budesonide Respules 0.5 MG/2 ML AMPUL.NEB. INHALATION (21:37)
[2025-02-19] MEDS: Albuterol 2.5 MG/3 ML VIAL.NEB. INHALATION (21:37)
[2025-02-19] MEDS: Albuterol *CONC* 2.5mg/0.5mL VIAL.NEB. 10 MG INHALATION (22:13)
[2025-02-19] MEDS: Pramipexole Di-HCl 1 MG Tablet 1.5 MG PO (23:08)
[2025-02-19] MEDS: 0.9% Saline Lock 10 ML Syringe IV (23:09)
[2025-02-19] MEDS: hydrALAZINE 50 MG Tablet 100 MG PO (23:09)
[2025-02-19] MEDS: Montelukast 10 MG Tablet PO (23:09)
[2025-02-19] MEDS: Ranolazine 500 MG Tablet PO (23:09)
[2025-02-19] MEDS: APIXABAN 2.5 MG TABLET (WCH) PO (23:09)
[2025-02-19] MEDS: Gabapentin 300 MG Capsule PO (23:11)
[2025-02-19 23:31] LABS: Bedside Glucose 202 mg/dL (74-106)
[2025-02-20] VITALS (11 sets, daily range): BP systolic 93–136; BP diastolic 60–91; PULSE 70–81; RESP 18–20; TEMP 36.4–36.6; O2SAT 94–97
[2025-02-20 01:08] LABS: Potassium 4.6 mmol/L (3.3-5.1)
[2025-02-20 06:06] LABS: Absolute Lymphocyte Count 0.56 X10^3/uL (0.83-4.51); Absolute Neutrophil Count 7.1 X10^3/uL (2.0-7.7); Basophil# 0.04 X10^3/uL; Basophil% 0.5 % (0-1); Eosinophil# 0.07 X10^3/uL; Eosinophils% 0.8 % (0-5); Hematocrit 27.2 % (40-54); Hemoglobin 10.2 g/dL (13.0-16.5); Lymphocyte # 0.56 X10^3/ul (0.83-4.51); Lymphocyte % 6.3 % (19-41); Mean Corp Hgb Conc 37.5 g/dL (32-36); Mean Corpuscular Hgb 35.5 pg (27.0-32.0); Mean Corpuscular Volume 94.8 fL (80-94); Mean Platelet Vol. 10.2 fl (6.2-12.0); Monocyte# 0.91 X10^3/uL; Monocyte% 10.3 % (0-10); NRBC Flagged by Analyzer 0 % (0-5); Neutrophil # 7.07 X10^3/uL (2.7-7.7); Neutrophil % 80.2 % (47-70); POSITIVE DIFFERENTIAL YES; Platelet Count 524 K/mm3 (150-450); RBC Distribution Width CV 14.6 % (11.6-14.6); RBC Distribution Width SD 46.8 fl (35.1-43.9); Red Blood Count 2.87 M/mm3 (4.6-6.2); White Blood Count 8.8 K/mm3 (4.4-11.0)
[2025-02-20 06:41] LABS: AST(SGOT) 22 U/L (<=37); Alanine Aminotransfer ALT/SGPT 18 U/L (<=46); Albumin, Serum 3.3 g/dL (3.4-4.8); Alkaline Phosphatase 75 U/L (40-129); Anion Gap 15 (5-15); BUN 74 mg/dL (4-19); BUN/Creat Ratio 24.2 RATIO (10-20); Bilirubin, Direct 0.24 mg/dL (0.00-0.30); Calcium,Total 9.1 mg/dL (7.6-11.0); Carbon Dioxide 21.2 mmol/L (21.0-32.0); Chloride 97 mmol/L (98-108); Creatinine, Serum 3.05 mg/dL (0.70-1.20); EST Glomerular Filtration Rate 19 (>60); Estimated Creatinine Clearance 18.63 ml/min (50-250); Globulin 3.2 g/dL (2.2-4.2); Glucose 194 mg/dL (70-99); Magnesium 2.5 mg/dL (1.5-2.2); Phosphorus 5.1 mg/dL (2.7-4.5); Potassium 4.8 mmol/L (3.3-5.1); Protein, Total 6.6 g/dL (5.9-8.4); Sodium Level 133 mmol/L (133-145); Total Bilirubin 0.38 mg/dL (0.00-1.30)
[2025-02-20 06:46] LABS: International Normalized Ratio 1.6; Prothrombin Time (Protime)PT. 19.6 SECONDS (11.7-14.9)
[2025-02-20] MEDS: Budesonide Respules 0.5 MG/2 ML AMPUL.NEB. INHALATION (06:46)
[2025-02-20] MEDS: Albuterol 2.5 MG/3 ML VIAL.NEB. INHALATION (06:46)
[2025-02-20] MEDS: Insulin Lispro 100 UNIT/ML INSULN.PEN 10 UNIT SC ×2 (08:46→11:34)
[2025-02-20] MEDS: Insulin Glargine-YFGN 100 UNIT/ML Pen 22 UNIT SC (08:46)
[2025-02-20] MEDS: hydrALAZINE 50 MG Tablet 100 MG PO ×2 (08:47→21:27)
[2025-02-20] MEDS: Pantoprazole Sodium 40 MG Tablet PO (08:47)
[2025-02-20] MEDS: Aspirin E.C. 81 MG Tablet PO (08:47)
[2025-02-20] MEDS: Ranolazine 500 MG Tablet PO ×2 (08:47→21:27)
[2025-02-20] MEDS: Carvedilol 3.125 MG TABLET PO (08:47)
[2025-02-20] MEDS: Losartan Potassium 25 MG Tablet PO (08:47)
[2025-02-20] MEDS: APIXABAN 2.5 MG TABLET (WCH) PO ×2 (08:47→21:27)
[2025-02-20] MEDS: Finasteride 5 MG Tablet PO (08:48)
[2025-02-20 09:12] LABS: Bedside Glucose 158 mg/dL (74-106)
--- NOTE | 2025-02-20 10:33 | CASEMGMT ---
RN CM Readmission Note Previous Admission: 02/15/25-02/18/25 Diagnosis: AE of chronic diastolic CHF, increased troponins DC Disposition: Home with OP therapy to resume Current Admission: Admitted 02/19/25 Current Diagnosis: NARENDRA Pt dc'd with new medications and plan to resume therapy at [facility]. Pt was up indep in room day of dc. Pt received a f/u tc day after dc and was noted from that pt was confused, weak and shaky. It was recommended pt seek medical attention. Pt came to ER. BRYAN saw pt in ER and plan for pt is SNF pending therapy. Currently pt 6 clicks=13 and therapy to eval. COLLEEN BECERRA to follow. DC Plan: TBD pending therapy evals and course of hospitalization.
--- NOTE | 2025-02-20 11:04 | CASEMGMT ---
Social Work- SW received notice from nurse and hospitalist that pt and pt would like referral to TCU. Therapy supports inpatient placement. SW completed referral to TCU. Hospitalist feels that pt will not be ready prior to Saturday; SW relayed that information to TCU admissions. BRYAN remains available to follow. JOAO Meyers
[2025-02-20] MEDS: Furosemide 80 MG Tablet PO (11:34)
[2025-02-20] MEDS: Ferrous Sulfate 325 MG Tablet PO (11:34)
[2025-02-20 12:00] LABS: Bedside Glucose 142 mg/dL (74-106)
--- NOTE | 2025-02-20 14:00 | PN.HOSP_ITS ---
Reason for Visit Reason for Visit: Diagnoses Acute kidney failure, unspecified (02/19/25) Subjective Subjective Patient was seen and examined today, he was admitted yesterday for respiratory distress-chest x-ray showed vascular congestion, he also was admitted due to an elevated creatinine and generalized weakness. A respiratory panel was done after admission which indicated the patient had parainfluenza 3 virus. Objective Data Objective Data Vital Signs: Vital Signs Temp Pulse Resp BP Pulse Ox O2 Del Method O2 Flow Rate 97.8 F 80 18 128/61 H 97 Nasal Cannula 2 02/20/25 08:41 02/20/25 08:47 02/20/25 08:41 02/20/25 08:41 02/20/25 08:41 02/20/25 13:38 02/20/25 13:38 Oxygen Flow Rate (L/min) 2 Oxygen Delivery Method Nasal Cannula Weight: 90.4 kg Body Mass Index (BMI) 30.3 Intake & Output: Intake and Output for Last 24 Hours 02/18/25 02/19/25 02/20/25 23:59 23:59 23:59 Intake Total 600 / 600 Output Total 150 / 150 800 / 800 Balance -150 / -150 -200 / -200 Lab / Micro Data 02/20/25 05:06 02/20/25 05:06 Labs: Laboratory Results - last 24 hr 02/19/25 16:00: WBC 12.2 H, RBC 3.74 L, Hgb 10.9 L, Hct 34.5 L, MCV 92.2, MCH 29.1, MCHC 31.6 L D, RDW Std Deviation 48.0 H, RDW Coeff of Justin 15.0 H, Plt Count 523 H, MPV 10.3, Immature Gran % (Auto) 2.100 H, Neut % (Auto) 80.8 H, L ymph % (Auto) 5.2 L, [place] % (Auto) 10.5 H, Eos % (Auto) 1.0, Baso % (Auto) 0.4, Absolute Neuts (auto) 9.8 H, Absolute Lymphs (auto) 0.63 L, Nucleated RBC % 0.4, Sodium 133, Potassium 5.6 H, Chloride 95 L, Carbon Dioxide 24.3, Anion Gap 14, B UN 72 H, Creatinine 3.09 H, Estim Creat Clear Calc 18.57 L, Est GFR (MDRD) Non- Af 19 L, BUN/Creatinine Ratio 23.3 H, Glucose 129 H, Calcium 9.9, Troponin T High Sens 271 H* D, NT pro BNP II 5205 H 02/19/25 18:12: POC Glucose 151 H 02/19/25 23:01: POC Glucose 202 H 02/20/25 00:44: Potassium 4.6 02/20/25 05:06: WBC 8.8, RBC 2.87 L, Hgb 10.2 L, Hct 27.2 L, MCV 94.8 H, MCH 35.5 H, MCHC 37.5 H D, RDW Std Deviation 46.8 H, RDW Coeff of Justin 14.6, Plt Count 524 H, MPV 10.2, Immature Gran % (Auto) 1.900 H, Neut % (Auto) 80.2 H, L ymph % (Auto) 6.3 L, [place] % (Auto) 10.3 H, Eos % (Auto) 0.8, Baso % (Auto) 0.5, Absolute Neuts (auto) 7.1, Absolute Lymphs (auto) 0.56 L, Nucleated RBC % 0, PT 19.6 H, INR 1.6, Sodium 133, Potassium 4.8, Chloride 97 L, Carbon Dioxide 21.2, Anion Gap 15, BUN 74 H, Creatinine 3.05 H, Estim Creat Clear Calc 18.63 L, Est GFR (MDRD) Non-Af 19 L, BUN/Creatinine Ratio 24.2 H, Glucose 194 H, Calcium 9.1, Phosphorus 5.1 H, Magnesium 2.5 H, Total Bilirubin 0.38, Direct Bilirubin 0.24, AST 22, ALT 18, Alkaline Phosphatase 75, Total Protein 6.6, Albumin 3.3 L, Globulin 3.2, Albumin/Globulin Ratio 1.0, TSH 1.030 02/20/25 08:37: POC Glucose 158 H 02/20/25 11:32: POC Glucose 142 H Micro: Microbiology 02/19/25 21:45 Mucosa - Nasopharyngeal Coronavirus COVID-19 PCR - Final 02/19/25 21:45 Mucosa - Nasopharyngeal Respiratory Panel (PCR) - Final Parainfluenza 3 ABG Data ABG results: ABG 02/19/25 16:54 Specimen Type YURY Sample Site Not entered VBG pH 7.41 VBG pO2 35 VBG HCO3 28 H VBG Total CO2 29 VBG O2 Sat (Calc) 67 VBG Base Excess 3 POC Mix VBG pCO2 Pt Tmp 44.4 O2 Delivery Device Not entered Radiography Diagnostic Testing: Radiology Impression Chest X-Ray 02/19/25 16:15 IMPRESSION: Findings suggestive of vascular congestion. Reading [facility] Physical Exam Const alert, oriented x3 and no apparent distress General Appearance: cooperative, well kempt and well developed Orientation / Consciousness: awake, oriented to person, oriented to place and oriented to time HEENT normocephalic, head/scalp atraumatic and moist oral mucous membranes Eyes PERRL, EOMs intact bilaterally and conjunctivae normal Neck supple, no JVD, thyroid normal and no carotid bruits General: trachea midline Resp normal respiratory effort and no retractions Resp Narrative: Expiratory rhonchi are noted over both lungs Auscultation: Negative for rales, rhonchi or wheezes Cardio S1 normal heart sound, S2 normal heart sound, no murmurs, no rub and no gallops Cardio Narrative: Heart rate and rhythm is irregular GI normal to inspection, nondistended, normoactive bowel sounds, soft to palpation, non-tender and non-distended Extremity no clubbing, cyanosis or edema Skin no rashes or lesions noted Skin Narrative: There is generalized edema noted over the lower legs. General Skin Exam: no breakdown Neuro oriented x3, CN's II-XII intact bilaterally, moves all extremities, no focal motor deficits and no sensory deficits noted Neuro Narrative: Patient has some slurring of his speech noted. Sensorium / Orientation: awake and alert Psych affect normal Assessment & Plan Assessment/Plan (1) Hypoxia: PLAN: Plan 1. Acute exacerbation of COPD with hypoxia secondary to parainfluenza 3 viral infection with underlying acute on chronic systolic congestive heart failure-I talked briefly informally with cardiology, they advise stopping the patient's losartan, increasing the patient's carvedilol, and placing the patient on the equivalent of 80 mg of Lasix in the morning and 40 mg of Lasix in the afternoon. I also placed the patient on IV Solu-Medrol and DuoNeb aerosol treatments. I talked at length with the patient's who was in the room at the time my examination and outlined my care plan. #2 acute on chronic systolic congestive heart failure-again patient will be placed on oral Lasix #3 acute kidney injury on a backdrop of chronic kidney disease stage IV-again patient will be maintained on Lasix due to his congestive heart failure, it is expected his creatinine may decline further. #4 chronic atrial fibrillation-patient remains on a beta-wagner and Eliquis #5 acute hyperkalemia-resolved at this time, etiology unclear, patient was taken off his losartan #6 chronic iron deficiency anemia-etiology unclear, patient received iron infusions during his last admission. Total clinical time spent by myself addressing the patient's medical issues, reviewing all of his data, and collaborating with patient's care team: 50-minute Charges/Coding Visit Charges Inpatient E&M: [id number] [facility] L3
[2025-02-20] MEDS: Carvedilol 6.25 MG Tablet PO (16:59)
[2025-02-20] MEDS: Furosemide 40 MG Tablet PO (16:59)
[2025-02-20] MEDS: Tamsulosin HCl 0.4 MG Capsule PO (16:59)
--- NOTE | 2025-02-20 18:09 | EKG12_ITS ---
Test Reason : CP Blood Pressure : */* mmHG Vent. Rate : 83 BPM Atrial Rate : * BPM P-R Int : * ms QRS Dur : 106 ms QT Int : 406 ms P-R-T Axes : * 43 31 degrees QTcB Int : 477 ms Atrial fibrillation Nonspecific T wave abnormality Abnormal ECG When compared with ECG of 19-Feb-2025 16:30, MANUAL COMPARISON REQUIRED DATA IS UNCONFIRMED Confirmed by RIA SMITH, VICTORIANO ([id number]), city editor AMPARO MALHOTRA ([id number]) on 02/22/2025 9:45:23 AM Referred By: Hansel Gillis Confirmed By: VICTORIANO ROLLINS MD
[2025-02-20] MEDS: Ipratropium/Albuterol Sulfate 3 ML AMPUL.NEB INHALATION (19:18)
--- NOTE | 2025-02-20 21:24 | NURSING ---
blood sugar is 255 via patients ramone device
[2025-02-20] MEDS: 0.9% Saline Lock 10 ML Syringe IV (21:26)
[2025-02-20] MEDS: Pramipexole Di-HCl 1 MG Tablet 1.5 MG PO (21:27)
[2025-02-20] MEDS: Montelukast 10 MG Tablet PO (21:27)
[2025-02-20] MEDS: Atorvastatin Calcium 40 MG Tablet PO (21:27)
[2025-02-21] VITALS (10 sets, daily range): BP systolic 134–151; BP diastolic 55–69; PULSE 62–83; RESP 17–22; TEMP 36.5–36.9; O2SAT 93–98
[2025-02-21] MEDS: 0.9% Saline Lock 10 ML Syringe IV ×3 (05:15→21:00)
[2025-02-21] MEDS: Ipratropium/Albuterol Sulfate 3 ML AMPUL.NEB INHALATION ×3 (05:30→19:31)
[2025-02-21] MEDS: Carvedilol 6.25 MG Tablet PO ×2 (08:49→17:21)
[2025-02-21] MEDS: Aspirin E.C. 81 MG Tablet PO (08:49)
[2025-02-21] MEDS: hydrALAZINE 50 MG Tablet 100 MG PO ×2 (08:50→21:02)
[2025-02-21] MEDS: Insulin Glargine-YFGN 100 UNIT/ML Pen 22 UNIT SC (08:50)
[2025-02-21] MEDS: APIXABAN 2.5 MG TABLET (WCH) PO ×2 (08:50→21:03)
[2025-02-21] MEDS: Insulin Lispro 100 UNIT/ML INSULN.PEN 10 UNIT SC ×3 (08:50→17:21)
[2025-02-21] MEDS: Furosemide 80 MG Tablet PO (08:51)
[2025-02-21] MEDS: Ranolazine 500 MG Tablet PO ×2 (08:51→21:03)
[2025-02-21] MEDS: Finasteride 5 MG Tablet PO (08:51)
[2025-02-21] MEDS: Pantoprazole Sodium 40 MG Tablet PO (08:52)
[2025-02-21 09:55] LABS: Anion Gap 13 (5-15); BUN 80 mg/dL (4-19); BUN/Creat Ratio 29.3 RATIO (10-20); Calcium,Total 9.5 mg/dL (7.6-11.0); Chloride 93 mmol/L (98-108); Creatinine, Serum 2.72 mg/dL (0.70-1.20); EST Glomerular Filtration Rate 22 (>60); Estimated Creatinine Clearance 20.89 ml/min (50-250); Glucose 227 mg/dL (70-99); Potassium 4.7 mmol/L (3.3-5.1); Sodium Level 129 mmol/L (133-145)
--- NOTE | 2025-02-21 10:29 | PN.HOSP_ITS ---
Reason for Visit Reason for Visit: Diagnoses Acute kidney failure, unspecified (02/19/25) Hypoxemia (02/19/25) Subjective Subjective Patient was seen and examined today, he is currently on room air. He appears comfortable, labs obtained today showing improved creatinine at 2.72. Sodium is slightly low at 129. Objective Data Objective Data Vital Signs: Vital Signs Temp Pulse Resp BP Pulse Ox O2 Del Method O2 Flow Rate 98.5 F 67 17 146/62 H 95 Room Air 2 02/21/25 08:43 02/21/25 08:50 02/21/25 08:43 02/21/25 08:43 02/21/25 08:43 02/21/25 08:57 02/20/25 14:30 Oxygen Flow Rate (L/min) 2 Oxygen Delivery Method Room Air Weight: 90.4 kg Body Mass Index (BMI) 30.3 Intake & Output: Intake and Output for Last 24 Hours 02/19/25 02/20/25 02/21/25 23:59 23:59 23:59 Intake Total 1150 / 1150 360 / 360 Output Total 150 / 150 2200 / 2200 625 / 625 Balance -150 / -150 -1050 / -1050 -265 / -265 Lab / Micro Data 02/20/25 05:06 02/21/25 08:35 Labs: Laboratory Results - last 24 hr 02/20/25 11:32: POC Glucose 142 H 02/21/25 08:35: Sodium 129 L, Potassium 4.7, Chloride 93 L, Carbon Dioxide 23.0, Anion Gap 13, BUN 80 H, Creatinine 2.72 H, Estim Creat Clear Calc 20.89 L, Est GFR (MDRD) Non-Af 22 L, BUN/Creatinine Ratio 29.3 H, Glucose 227 H, Calcium 9.5 Micro: Microbiology 02/19/25 21:45 Mucosa - Nasopharyngeal Coronavirus COVID-19 PCR - Final 02/19/25 21:45 Mucosa - Nasopharyngeal Respiratory Panel (PCR) - Final Parainfluenza 3 Physical Exam Narrative alert, oriented x3 and no apparent distress General Appearance: cooperative, well kempt and well developed Orientation / Consciousness: awake, oriented to person, oriented to place and oriented to time HEENT normocephalic, head/scalp atraumatic and moist oral mucous membranes Eyes PERRL, EOMs intact bilaterally and conjunctivae normal Neck supple, no JVD, thyroid normal and no carotid bruits General: trachea midline Resp normal respiratory effort and no retractions Resp Narrative: There are decreased breath sounds bilaterally, no rhonchi was noted today Auscultation: Negative for rales, rhonchi or wheezes Cardio S1 normal heart sound, S2 normal heart sound, no murmurs, no rub and no gallops Cardio Narrative: Heart rate and rhythm is irregular GI normal to inspection, nondistended, normoactive bowel sounds, soft to palpation, non-tender and non-distended Extremity no clubbing, cyanosis or edema Skin no rashes or lesions noted Skin Narrative: There is generalized edema noted over the lower legs. General Skin Exam: no breakdown Neuro oriented x3, CN's II-XII intact bilaterally, moves all extremities, no focal motor deficits and no sensory deficits noted Neuro Narrative: Patient's speech is clear today Sensorium / Orientation: awake and alert Psych affect normal Assessment & Plan Assessment/Plan (1) Generalized weakness: (2) Hypoxia: PLAN: Plan 1. Acute exacerbation of COPD with hypoxia secondary to parainfluenza 3 viral infection with underlying acute on chronic systolic congestive heart failure- patient remains on IV Solu-Medrol and aerosol treatments at this time and oral Lasix, creatinine is improved, patient is now on room air #2 acute on chronic systolic congestive heart failure-again patient is on oral Lasix #3 acute kidney injury on a backdrop of chronic kidney disease stage IV-again patient will be maintained on Lasix due to his congestive heart failure, BMP will be obtained tomorrow #4 chronic atrial fibrillation-patient remains on a beta-wagner and Eliquis #5 acute hyperkalemia-resolved at this time, etiology unclear, patient was taken off his losartan #6 chronic iron deficiency anemia-etiology unclear, patient received iron infusions during his last admission. Total clinical time spent by myself addressing the patient's medical issues, reviewing all of his data, and collaborating with patient's care team: 35- minutes Charges/Coding Visit Charges Inpatient E&M: 64663 Subs Hosp L2
[2025-02-21] MEDS: Ferrous Sulfate 325 MG Tablet PO (12:01)
[2025-02-21] MEDS: Tamsulosin HCl 0.4 MG Capsule PO (17:21)
[2025-02-21] MEDS: Furosemide 40 MG Tablet PO (17:21)
[2025-02-21] MEDS: Pramipexole Di-HCl 1 MG Tablet 1.5 MG PO (21:01)
[2025-02-21] MEDS: Montelukast 10 MG Tablet PO (21:03)
[2025-02-21 22:39] LABS: Bedside Glucose 146 mg/dL (74-106)
[2025-02-22] VITALS (8 sets, daily range): BP systolic 148–182; BP diastolic 65–74; PULSE 68–80; RESP 17–20; TEMP 36.2–36.6; O2SAT 90–100
[2025-02-22] MEDS: guaiFENesin Dm 10 ML UDC 5 ML PO ×4 (00:25→17:28)
[2025-02-22] MEDS: 0.9% Saline Lock 10 ML Syringe IV (05:50)
[2025-02-22 06:19] LABS: Hematocrit 30.4 % (40-54); Hemoglobin 10.9 g/dL (13.0-16.5)
[2025-02-22] MEDS: Ipratropium/Albuterol Sulfate 3 ML AMPUL.NEB INHALATION ×2 (06:43→13:05)
[2025-02-22 06:53] LABS: Anion Gap 15 (5-15); BUN 81 mg/dL (4-19); BUN/Creat Ratio 33.7 RATIO (10-20); Calcium,Total 9.5 mg/dL (7.6-11.0); Carbon Dioxide 22.5 mmol/L (21.0-32.0); Chloride 93 mmol/L (98-108); Creatinine, Serum 2.41 mg/dL (0.70-1.20); EST Glomerular Filtration Rate 25 (>60); Estimated Creatinine Clearance 23.58 ml/min (50-250); Glucose 220 mg/dL (70-99); Potassium 4.7 mmol/L (3.3-5.1); Sodium Level 130 mmol/L (133-145)
[2025-02-22] MEDS: Finasteride 5 MG Tablet PO (08:21)
[2025-02-22] MEDS: Carvedilol 6.25 MG Tablet PO (08:21)
[2025-02-22] MEDS: Furosemide 80 MG Tablet PO (08:21)
[2025-02-22] MEDS: APIXABAN 2.5 MG TABLET (WCH) PO (08:22)
[2025-02-22] MEDS: hydrALAZINE 50 MG Tablet 100 MG PO (08:22)
[2025-02-22] MEDS: Pantoprazole Sodium 40 MG Tablet PO (08:22)
[2025-02-22] MEDS: Aspirin E.C. 81 MG Tablet PO (08:22)
[2025-02-22] MEDS: Insulin Lispro 100 UNIT/ML INSULN.PEN 10 UNIT SC ×3 (08:23→17:06)
[2025-02-22] MEDS: Insulin Glargine-YFGN 100 UNIT/ML Pen 22 UNIT SC (08:23)
[2025-02-22] MEDS: Ranolazine 500 MG Tablet PO (08:24)
--- NOTE | 2025-02-22 09:51 | CASEMGMT ---
Patient is doing well with therapy. Patient will likely be discharged. However, SW did ask that Summa review patient. Mireya Arora CUSTOM DESIGNER CHRISTY
[2025-02-22] MEDS: Ferrous Sulfate 325 MG Tablet PO (11:26)
--- NOTE | 2025-02-22 11:50 | CASEMGMT ---
Patient was denied to go to TCU. SW notified patient, his , and physician. Patient and his declined home health at this time. Plan: d/c home Mireya HARRISON
--- NOTE | 2025-02-22 15:04 | DCINST_ITS ---
Discharge Instructions Diet Discharge Diet: 1800 Calorie Control Diet DC O2, CPAP, BIPAP needs Home O2 Discharge instructions: No Dressing / Incision Discharge Activity: Return to Normal Activity Weight Bearing Status: Full weight bearing Follow Up Care Test Results: Test results from this visit will be discussed in further detail at your follow- up appointment, if applicable. Discharge Plan Admission Admit Date/Time: 02/19/25 19:52 Primary Reason for Your Visit: Exacerbation of COPD, parainfluenza 3 virus infection, CHF Attending Provider: Inocencio Perkins Primary Care Provider: Carolynn Whitman Consulting Providers: Hansel Gillis; Tracey Orantes Discharge Orders/Prescriptions Prescriptions: New furosemide 40 mg Tablet 40 mg PO UD Qty: 90 0RF Rx Instructions: 2 tablets every morning, 1 tablet at 4:00 daily carvedilol 6.25 mg Tablet 6.25 mg PO BIDCM Qty: 60 0RF dextromethorphan-guaifenesin 10-100 mg/5 mL Syrup 5 ml PO Q4H PRN PRN (Reason: Cough) Qty: 0 0RF prednisone 20 mg tablet 40 mg PO DAILY Qty: 10 0RF Rx Instructions: 2 tablets daily for 3 days, then 1 tablet a day for 4 days then stop Continued (DME) handicap placcard Qty: 1 0RF Rx Instructions: Lifetime: debility coenzyme Q10 [Co Q-10] 100 mg capsule 100 mg PO DAILY cholecalciferol (vitamin D3) 100 mcg (4,000 unit) tablet 100 mcg PO DAILY (DME) spacer See Rx Instructions .ROUTE .MEDSUPPLY Qty: 1 0RF Rx Instructions: As directed (DME) lancalesia [facility] [place] See Rx Instructions .Route Qty: 180 1RF Rx Instructions: twice daily tamsulosin 0.4 mg capsule 0.4 mg PO DAILY Patient Comments: PT TAKES SOMETIMES pantoprazole 40 mg tablet,delayed release (DR/EC) 40 mg PO DAILY Qty: 90 1RF (DME) FreeStyle [place] [employer] [facility] [place] See Rx Instructions .Route Qty: 1 0RF Rx Instructions: As directed finasteride 5 mg tablet 5 mg PO DAILY Patient Comments: PT TAKES AT NIGHT ipratropium bromide 21 mcg (0.03 %) spray,non-aerosol 2 spray intranasal BID PRN (Reason: allergy symptoms) Rx Instructions: administer into each nostril ipratropium-albuterol 0.5 mg-3 mg(2.5 mg base)/3 mL solution for nebulization 3 ml inhalation TID Rx Instructions: 3 mL inhaled; loratadine [Allergy Relief (loratadine)] 10 mg tablet 10 mg PO DAILY insulin glargine [Lantus Solostar U-100 Insulin] 100 unit/mL (3 mL) insulin pen 22 unit subcut DAILY aspirin 81 mg Tablet,Delayed Release (Dr/Ec) 81 mg PO BREAKFAST Qty: 0 0RF lactulose 10 gram/15 mL Solution 20 g PO DAILY Qty: 946 0RF potassium chloride 10 mEq Tablet,Er Particles/Crystals 20 meq PO BIDCM Qty: 60 0RF ferrous sulfate [FeroSul] 325 mg (65 mg iron) tablet 325 mg PO DAILY Qty: 30 0RF Rx Instructions: 1 tablet daily montelukast 10 mg tablet 10 mg PO QHS Qty: 90 3RF atorvastatin 40 mg tablet 40 mg PO QODAY Qty: 45 3RF Patient Comments: PT TAKES IN EVENING insulin aspart U-100 [Novolog PenFill U-100 Insulin] 100 unit/mL cartridge 10 unit subcut TID Qty: 15 1RF Rx Instructions: hold if glucose is under 130 (DME) handicap placard See Rx Instructions .ROUTE .MEDSUPPLY Qty: 1 0RF Rx Instructions: Length of time: 5 years Diganosis: Impaired physical mobility budesonide-formoterol [Symbicort] 160-4.5 mcg/actuation HFA aerosol inhaler 2 puff inhalation BID Qty: 3 3RF Rx Instructions: administer with spacer, rinse mouth after each use Eliquis 2.5 mg tablet 2.5 mg PO BID Qty: 180 4RF (DME) OneTouch Ultra Test Strip See Rx Instructions .Route Qty: 180 1RF Rx Instructions: Check three to four times a day. albuterol sulfate [Ventolin HFA] 90 mcg/actuation HFA aerosol inhaler 2 inh INHALATION Q4H PRN (Reason: shortness of breath or wheezing) Qty: 18 6RF ranolazine 500 mg tablet extended release 12 hr 500 mg PO BID Qty: 180 3RF hydralazine 100 mg tablet 100 mg PO BID Qty: 180 3RF ropinirole 1 mg tablet 3 mg PO QHS Qty: 90 11RF Rx Instructions: administer 2-3 tablets, 1-3 hours before bedtime (DME) FreeStyle Dwight 3 Plus Sensor Device See Rx Instructions .Route Qty: 3 0RF Rx Instructions: As directed (DME) pen needle, diabetic [Unifine Pentips] 31 gauge x 1/4 needle See Rx Instructions .ROUTE .COMPLEX Qty: 100 1RF Dose Instruction: use 3 TO 4 needles daily Rx Instructions: use 3 TO 4 needles daily nitroglycerin [Nitrostat] 0.4 mg tablet, sublingual 0.4 mg SUBLINGUAL Q5-15M PRN (Reason: chest pain) Qty: 25 2RF Discontinued carvedilol 3.125 mg Tablet 3.125 mg PO BIDCM Qty: 60 0RF gabapentin 300 mg Capsule 300 mg PO QHS Qty: 30 0RF losartan 25 mg Tablet 25 mg PO DAILY Qty: 30 0RF torsemide 20 mg tablet 20 mg PO BID Qty: 60 0RF Referrals / Follow Up: Carolynn Whitman MD [Primary Care Provider] - Laura Farias PA [Med Staff - [facility]] - See Referral Note (Within 2 to 3 weeks) Disposition Disposition (needs filled in before D/C Order can be placed): Home, Self Care
--- NOTE | 2025-02-22 15:16 | PCM.DC.SUM ---
Providers Date of Admission: 02/19/25 Date of Discharge: 02/22/25 Primary Care Physician: Dr. Carolynn Whitman MD Reason For Visit: NARENDRA Diagnosis Discharge Diagnosis (1) Generalized weakness: Status: Acute Code(s): R53.1 - Weakness (2) Hypoxia: Status: Acute Code(s): R09.02 - Hypoxemia Plan 1. Acute exacerbation of COPD with hypoxia secondary to parainfluenza 3 viral infection with underlying acute on chronic systolic congestive heart failure-patient remains on IV Solu-Medrol and aerosol treatments at this time and oral Lasix, creatinine is improved, patient is now on room air #2 acute on chronic systolic congestive heart failure-again patient is on oral Lasix #3 acute kidney injury on a backdrop of chronic kidney disease stage IV-again patient will be maintained on Lasix due to his congestive heart failure, BMP will be obtained tomorrow #4 chronic atrial fibrillation-patient remains on a beta-wagner and Eliquis #5 acute hyperkalemia-resolved at this time, etiology unclear, patient was taken off his losartan #6 chronic iron deficiency anemia-etiology unclear, patient received iron infusions during his last admission. Total clinical time spent by myself addressing the patient's medical issues, reviewing all of his data, and collaborating with patient's care team: 35-minutes Medications at Discharge Home Medications handicap placcard #1 ea 09/28/19 coenzyme Q10 100 mg capsule (Co Q-10) 100 mg PO DAILY supplement 05/03/20 cholecalciferol (vitamin D3) 100 mcg (4,000 unit) tablet 100 mcg PO DAILY supplement 11/03/20 spacer #1 ea 01/12/21 lancets #180 ea 07/18/23 montelukast 10 mg tablet 10 mg PO QHS Respiratory #90 tabs 05/04/24 atorvastatin 40 mg tablet 40 mg PO QODAY cholesterol #45 tabs 05/13/24 tamsulosin 0.4 mg capsule 0.4 mg PO DAILY prostate 06/01/24 finasteride 5 mg tablet 5 mg PO DAILY prostate 06/28/24 insulin aspart U-100 100 unit/mL subcutaneous cartridge (Novolog PenFill U-100 Insulin aspart) 10 unit (0.1 mL) subcut TID diabetes #15 mL 10/07/24 handicap placard #1 ea 10/12/24 budesonide-formoterol HFA 160 mcg-4.5 mcg/actuation aerosol inhaler (Symbicort) 2 puff inhalation BID copd #3 ea 10/16/24 pantoprazole 40 mg tablet,delayed release 40 mg PO DAILY reflux #90 tabs 11/30/24 apixaban 2.5 mg tablet (Eliquis) 2.5 mg PO BID atrial fibrillation #180 tabs 12/14/24 ipratropium bromide 21 mcg (0.03 %) nasal spray 2 spray intranasal BID PRN allergy symptoms 12/14/24 blood sugar diagnostic (AG[employer] Ultra Test strips) #180 ea 12/21/24 albuterol sulfate 90 mcg/actuation aerosol inhaler (Ventolin HFA) 2 inh inhalation Q4H PRN shortness of breath or wheezing #18 grams 01/04/25 hydralazine 100 mg tablet 100 mg PO BID hypertension #180 tabs 01/26/25 ranolazine 500 mg tablet,extended release,12 hr 500 mg PO BID chest pain #180 tabs 01/26/25 ropinirole 1 mg tablet 3 mg (3 x 1 mg) PO QHS restless leg #90 tabs 01/26/25 ipratropium 0.5 mg-albuterol 3 mg (2.5 mg base)/3 mL nebulization soln 3 ml inhalation TID SOB &/OR WHEEZING 01/29/25 loratadine 10 mg tablet (Allergy Relief (loratadine)) 10 mg PO DAILY allergies 01/29/25 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,psychologist research assistant,cont (FreeStyle Dwight 3 [place]) #1 ea 02/01/25 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 sensor (FreeStyle Dwight 3 Plus Sensor device) #3 ea 02/10/25 insulin glargine 100 unit/mL (3 mL) subcutaneous pen (Lantus Solostar U-100 Insulin) 22 unit subcut DAILY diabetes 02/15/25 nitroglycerin 0.4 mg sublingual tablet (Nitrostat) 0.4 mg sublingual Q5-15M PRN chest pain #25 tabs 02/15/25 pen needle, diabetic 31 gauge x 1/4 (Unifine Pentips) #100 ea 02/15/25 aspirin 81 mg tablet,delayed release 81 mg PO BREAKFAST heart health #0 tabs 02/18/25 ferrous sulfate 325 mg (65 mg iron) tablet (FeroSul) 325 mg PO DAILY low iron #30 tabs 02/18/25 lactulose 10 gram/15 mL oral solution 20 g (30 mL) PO DAILY constipation #946 mL 02/18/25 potassium chloride 10 mEq tablet,extended release(part/cryst) 20 meq (2 x 10 mEq) PO BIDCM supplement #60 tabs 02/18/25 carvedilol 6.25 mg tablet 6.25 mg PO BIDCM #60 tabs 02/22/25 dextromethorphan-guaifenesin 10 mg-100 mg/5 mL oral syrup 5 ml PO Q4H PRN PRN Cough #0 mL 02/22/25 furosemide 40 mg tablet 40 mg PO UD #90 tabs 02/22/25 prednisone 20 mg tablet 40 mg (2 x 20 mg) PO DAILY #10 tabs 02/22/25 Hospital Course Operations None Procedures None Summary of Care Provided Minutes Spent on Discharge: 31 Hospital Course: This 89-year-old white male was seen in the emergency room at [facility], he had been discharged from the hospital here the day before after treatment for congestive heart failure. Patient complained of increased shortness of breath when he was at home. Workup in the emergency room revealed findings suggestive of vascular congestion. Patient required supplemental oxygen maintain his pulse ox above 90%. Patient was admitted to PCU, respiratory panel was obtained and he was positive for parainfluenza 3 virus. Patient was placed on IV Solu-Medrol, given oral Lasix, and his condition improved and he was eventually weaned off oxygen. Patient's cardiac medications were adjusted. On 02/22/2025, patient was seen and examined: On examination he appeared in good health and spirits. Vital signs as documented. Skin warm and dry and without overt rashes. Neck without JVD, neck was supple, trachea midline, thyroid was normal. Lungs clear bilaterally, normal air movement was noted. Heart exam notable for irregular rhythm, normal sounds and absence of murmurs, rubs or gallops. Abdomen unremarkable and without evidence of organomegaly, masses, or abdominal aortic enlargement. Bowel sounds are present, abdomen is not distended. Extremities nonedematous, no cyanosis was noted, no clubbing was noted. Neuro: Cranial nerves II through XII are grossly intact, no focal motor deficits were noted, sensation to light touch and pinprick intact, motor exam 5/5 throughout. Psych: Patient is alert and oriented x3, he does not appear anxious or depressed, he does not appear agitated. Patient was discharged home in stable condition on 02/22/2025. Weight / BMI Weight Weight: 90.4 kg Body Mass Index (BMI) 30.3 ABG / Lab / Microbiology Data 02/22/25 05:30 02/22/25 05:30 Laboratory: Laboratory Results - last 24 hr 02/21/25 20:59: POC Glucose 146 H 02/22/25 05:30: Hgb 10.9 L, Hct 30.4 L, Sodium 130 L, Potassium 4.7, Chloride 93 L, Carbon Dioxide 22.5, Anion Gap 15, BUN 81 H, Creatinine 2.41 H, Estim Creat Clear Calc 23.58 L, Est GFR (MDRD) Non-Af 25 L, BUN/Creatinine Ratio 33.7 H, Glucose 220 H, Calcium 9.5 Microbiology: Microbiology 02/19/25 21:45 Sputum, Expectorated/Coughed Gram Stain - Final 02/19/25 21:45 Sputum, Expectorated/Coughed Respiratory Culture - Final Citrobacter braakii Raoultella planticola Enterobacter cloacae complex 02/19/25 21:45 Mucosa - Nasopharyngeal Coronavirus COVID-19 PCR - Final 02/19/25 21:45 Mucosa - Nasopharyngeal Respiratory Panel (PCR) - Final Parainfluenza 3 D/C Instructions Discharge Diet: 1800 Calorie Control Diet Weight Bearing Status: Full weight bearing DC O2, CPAP, BIPAP Needs Home O2 Discharge instructions: No Meaningful Use Info Meaningful Use Meaningful Use Diagnoses (Choose all that apply): CHF CHF SILVANO/ARB ordered at discharge?: No Reason SILVANO/ARB not ordered?: Worsening renal dysfunctn Documented LVEF (%): 40 Ischemic Stroke Statin Dosing Therapy Reference: STATIN DOSE THERAPY REFERENCE: * Patients > 75 years receive moderate or high dose statin therapy. * Patients 75 years or YOUNGER should receive HIGH intensity statin dose unless contraindicated. You will be required to document reason for non-treatment if statin daily dose does not meet guidelines. HIGH DOSE STATIN THERAPY DAILY Atorvastatin > than or = to 40 mg Rosuvastatin > than or = to 20 mg Amlodipine + Atorvastatin > than or = to 2.5/40 mg Ezetimibe + Simvastatin 10/80 mg Simvastatin 80mg Discharge Plan Admission Admit Date/Time: 02/19/25 19:52 Primary Reason for Your Visit: Exacerbation of COPD, parainfluenza 3 virus infection, CHF Attending Provider: Inocencio Perkins Primary Care Provider: Carolynn Whitman Consulting Providers: Hansel Gillis; Tracey Orantes Discharge Orders/Prescriptions Prescriptions: New furosemide 40 mg Tablet 40 mg PO UD Qty: 90 0RF Rx Instructions: 2 tablets every morning, 1 tablet at 4:00 daily carvedilol 6.25 mg Tablet 6.25 mg PO BIDCM Qty: 60 0RF dextromethorphan-guaifenesin 10-100 mg/5 mL Syrup 5 ml PO Q4H PRN PRN (Reason: Cough) Qty: 0 0RF prednisone 20 mg tablet 40 mg PO DAILY Qty: 10 0RF Rx Instructions: 2 tablets daily for 3 days, then 1 tablet a day for 4 days then stop Continued (DME) handicap placcard Qty: 1 0RF Rx Instructions: Lifetime: debility coenzyme Q10 [Co Q-10] 100 mg capsule 100 mg PO DAILY cholecalciferol (vitamin D3) 100 mcg (4,000 unit) tablet 100 mcg PO DAILY (DME) spacer See Rx Instructions .ROUTE .MEDSUPPLY Qty: 1 0RF Rx Instructions: As directed (DME) ankita [facility] [place] See Rx Instructions .Route Qty: 180 1RF Rx Instructions: twice daily tamsulosin 0.4 mg capsule 0.4 mg PO DAILY Patient Comments: PT TAKES SOMETIMES pantoprazole 40 mg tablet,delayed release (DR/EC) 40 mg PO DAILY Qty: 90 1RF (DME) FreeStyle Dwight 3 [place] [facility] [place] See Rx Instructions .Route Qty: 1 0RF Rx Instructions: As directed finasteride 5 mg tablet 5 mg PO DAILY Patient Comments: PT TAKES AT NIGHT ipratropium bromide 21 mcg (0.03 %) spray,non-aerosol 2 spray intranasal BID PRN (Reason: allergy symptoms) Rx Instructions: administer into each nostril ipratropium-albuterol 0.5 mg-3 mg(2.5 mg base)/3 mL solution for nebulization 3 ml inhalation TID Rx Instructions: 3 mL inhaled; loratadine [Allergy Relief (loratadine)] 10 mg tablet 10 mg PO DAILY insulin glargine [Lantus Solostar U-100 Insulin] 100 unit/mL (3 mL) insulin pen 22 unit subcut DAILY aspirin 81 mg Tablet,Delayed Release (Dr/Ec) 81 mg PO BREAKFAST Qty: 0 0RF lactulose 10 gram/15 mL Solution 20 g PO DAILY Qty: 946 0RF potassium chloride 10 mEq Tablet,Er Particles/Crystals 20 meq PO BIDCM Qty: 60 0RF ferrous sulfate [FeroSul] 325 mg (65 mg iron) tablet 325 mg PO DAILY Qty: 30 0RF Rx Instructions: 1 tablet daily montelukast 10 mg tablet 10 mg PO QHS Qty: 90 3RF atorvastatin 40 mg tablet 40 mg PO QODAY Qty: 45 3RF Patient Comments: PT TAKES IN EVENING insulin aspart U-100 [Novolog PenFill U-100 Insulin] 100 unit/mL cartridge 10 unit subcut TID Qty: 15 1RF Rx Instructions: hold if glucose is under 130 (DME) handicap placard See Rx Instructions .ROUTE .MEDSUPPLY Qty: 1 0RF Rx Instructions: Length of time: 5 years Diganosis: Impaired physical mobility budesonide-formoterol [Symbicort] 160-4.5 mcg/actuation HFA aerosol inhaler 2 puff inhalation BID Qty: 3 3RF Rx Instructions: administer with spacer, rinse mouth after each use Eliquis 2.5 mg tablet 2.5 mg PO BID Qty: 180 4RF (DME) OneTouch Ultra Test Strip See Rx Instructions .Route Qty: 180 1RF Rx Instructions: Check three to four times a day. albuterol sulfate [Ventolin HFA] 90 mcg/actuation HFA aerosol inhaler 2 inh INHALATION Q4H PRN (Reason: shortness of breath or wheezing) Qty: 18 6RF ranolazine 500 mg tablet extended release 12 hr 500 mg PO BID Qty: 180 3RF hydralazine 100 mg tablet 100 mg PO BID Qty: 180 3RF ropinirole 1 mg tablet 3 mg PO QHS Qty: 90 11RF Rx Instructions: administer 2-3 tablets, 1-3 hours before bedtime (DME) Advisor [employer] Dwight 3 Plus Sensor Device See Rx Instructions .Route Qty: 3 0RF Rx Instructions: As directed (DME) pen needle, diabetic [Unifine Pentips] 31 gauge x 1/4 needle See Rx Instructions .ROUTE .COMPLEX Qty: 100 1RF Dose Instruction: use 3 TO 4 needles daily Rx Instructions: use 3 TO 4 needles daily nitroglycerin [Nitrostat] 0.4 mg tablet, sublingual 0.4 mg SUBLINGUAL Q5-15M PRN (Reason: chest pain) Qty: 25 2RF Discontinued carvedilol 3.125 mg Tablet 3.125 mg PO BIDCM Qty: 60 0RF gabapentin 300 mg Capsule 300 mg PO QHS Qty: 30 0RF losartan 25 mg Tablet 25 mg PO DAILY Qty: 30 0RF torsemide 20 mg tablet 20 mg PO BID Qty: 60 0RF Referrals / Follow Up: Carolynn Whitman MD [Primary Care Provider] - 03/12/25 1:00 pm (Appointment with DEBI Concepcion. ) Laura Farias PA [Med Staff - [facility]] - 03/09/25 9:30 am ( ) Disposition Disposition (needs filled in before D/C Order can be placed): Home, Self Care Charges/Coding Visit Charges Inpatient E&M: 32205 Disch Hosp >30min
--- NOTE | 2025-02-22 16:45 | CASEMGMT ---
RN MARIAM NOTE: Discharge order is in. RN CM to room. Pt sitting up in chair, @ bedside. They deny having any discharge needs or concerns. Erna VAZQUEZN COLLEEN CM
== END 2025-02-22 17:53 | disposition home or self-care (01) | DRG 291 ==
LOC: ED 19:45 → PCU 20:21
PROVIDERS: Physician Assistant; Admitting Provider Internal Medicine; Emergency Provider Emergency Medicine; PCP Internal Medicine; Referring Provider Internal Medicine; Visit Provider Internal Medicine
DX: I13.0 Hypertensive heart and chronic kidney disease with heart failure and stage 1 through stage 4 chronic kidney disease, or unspecified chronic kidney disease (principal); I50.23 Acute on chronic systolic (congestive) heart failure; J44.1 Chronic obstructive pulmonary disease with (acute) exacerbation; N17.9 Acute kidney failure, unspecified; N18.4 Chronic kidney disease, stage 4 (severe); I48.20 Chronic atrial fibrillation, unspecified; B34.8 Other viral infections of unspecified site; E11.22 Type 2 diabetes mellitus with diabetic chronic kidney disease; D50.9 Iron deficiency anemia, unspecified; G25.81 Restless legs syndrome; E11.51 Type 2 diabetes mellitus with diabetic peripheral angiopathy without gangrene; I25.10 Atherosclerotic heart disease of native coronary artery without angina pectoris; Z79.4 Long term (current) use of insulin; E87.5 Hyperkalemia; G47.33 Obstructive sleep apnea (adult) (pediatric); I25.2 Old myocardial infarction; K21.9 Gastro-esophageal reflux disease without esophagitis; Z79.01 Long term (current) use of anticoagulants; Z79.51 Long term (current) use of inhaled steroids; Z79.82 Long term (current) use of aspirin; Z79.899 Other long term (current) drug therapy; Z87.891 Personal history of nicotine dependence; Z95.5 Presence of coronary angioplasty implant and graft
CPT/HCPCS: 36415; 71045; 80048; 80053; 82248; 82803; 82962; 83735; 83880; 84100; 84132; 84443; 84484; 85014; 85018; 85025; 85610; 87070; 87077; 87186; 87205; 87633; 87635; 93005; 94640; 97110; 97116; 97162; 97166; 97530; 99285; A4216

== ENCOUNTER → 2025-03-03 | Outpatient (CLI) | payer MEDICARE, SELFPAY ==
[2025-03-03 15:32] LABS: Absolute Lymphocyte Count 0.66 X10^3/uL (0.83-4.51); Absolute Neutrophil Count 13.5 X10^3/uL (2.0-7.7); Basophil# 0.02 X10^3/uL; Basophil% 0.1 % (0-1); Eosinophil# 0.04 X10^3/uL; Eosinophils% 0.3 % (0-5); Hematocrit 34.6 % (40-54); Hemoglobin 11.9 g/dL (13.0-16.5); Lymphocyte # 0.66 X10^3/ul (0.83-4.51); Lymphocyte % 4.4 % (19-41); Mean Corp Hgb Conc 34.4 g/dL (32-36); Mean Corpuscular Hgb 33.6 pg (27.0-32.0); Mean Corpuscular Volume 97.7 fL (80-94); Mean Platelet Vol. 10.9 fl (6.2-12.0); Monocyte# 0.66 X10^3/uL; Monocyte% 4.4 % (0-10); NRBC Flagged by Analyzer 0 % (0-5); Neutrophil % 90.2 % (47-70); Platelet Count 403 K/mm3 (150-450); RBC Distribution Width CV 16.7 % (11.6-14.6); RBC Distribution Width SD 56.3 fl (35.1-43.9); Red Blood Count 3.54 M/mm3 (4.6-6.2)
[2025-03-03 16:35] LABS: Anion Gap 13 (5-15); BUN 76 mg/dL (4-19); BUN/Creat Ratio 26.4 RATIO (10-20); Calcium,Total 9.6 mg/dL (7.6-11.0); Carbon Dioxide 25.3 mmol/L (21.0-32.0); Chloride 95 mmol/L (98-108); Creatinine, Serum 2.89 mg/dL (0.70-1.20); EST Glomerular Filtration Rate 20 (>60); Ferritin 813 ng/mL (37-417); Glucose 96 mg/dL (70-99); Iron 48 ug/dL (65-175); Iron Binding Capacity,Unsat 150 ug/dL (228-428); Potassium 4.9 mmol/L (3.3-5.1); Sodium Level 134 mmol/L (133-145)
== END | disposition home or self-care (01) ==
LOC: BIMLAB 09:26
PROVIDERS: PCP Internal Medicine; Referring Provider Physician Assistant; Visit Provider Physician Assistant
DX: D64.9 Anemia, unspecified (principal); E87.5 Hyperkalemia
CPT/HCPCS: 36415; 80048; 82728; 83540; 83550; 85025

== ENCOUNTER 2025-03-04 12:47 | Inpatient (IN) | payer MEDICARE, SELFPAY ==
[2025-03-04] VITALS (9 sets, daily range): BP systolic 113–143; BP diastolic 58–66; PULSE 63–74; RESP 14–24; TEMP 36.4–37.2; O2SAT 95–100; BMI 29.0
--- NOTE | 2025-03-04 13:28 | EDS_ITS ---
HPI History of Present Illness Chief Complaint: General Illness Detail of Chief Complaint: Weakness and shortness of breath Informant: patient and spouse/S.O. Narrative Narrative: Patient presents to the emergency department complaint of generalized weakness and feeling short of breath. He complains of exertional dyspnea. He said 2 prior admissions 1 on February 14 for possible CHF and then 1 on February 19. It was thought he may also have a viral infection. He had a follow-up visit yesterday with primary care physician had some blood work and today was told to come in and get evaluated because there might be ongoing infection given that he had an elevated white blood cell count. Patient had been on steroids but finished several days ago. Patient denies chest pain. He does have a cough that is mostly nonproductive and at times does bring up some green phlegm. He denies urinary symptoms. [facility] Medical History Right carotid bruit Stable angina Kidney disease GERD (gastroesophageal reflux disease) Irregular heart beat Myocardial infarct Complicated urinary tract infection Urinary tract infection Colonic mass Controlled type 2 diabetes mellitus Acute respiratory insufficiency Chronic kidney disease Chronic anemia Bilateral edema of lower extremity Urinary retention Fatigue Pleural effusion (HFpEF) heart failure with preserved ejection fraction Pneumonia Colon polyp Lightheadedness Chronic constipation Anemia Obstructive sleep apnea Coronary artery disease Gastroesophageal reflux disease Allergic rhinitis Hyperlipidemia Urinary retention Wears hearing aid Wears dentures Wears glasses Cancer History of steroid therapy Ambulates with cane Walker as ambulation aid Arthritis Kidney stone Easy bruising Back pain Injury of back History of hiatal hernia Former smoker BiPAP (biphasic positive airway pressure) dependence Asthma Hoarseness Chronic cough Leg cramps History of pain when walking History of stress test History of heart attack History of irregular heartbeat Recurrent urinary tract infection ALMEIDA (dyspnea on exertion) Chest pain Right leg swelling Patellar bursitis of right knee Asthma-COPD overlap syndrome Abdominal aortic aneurysm (AAA) Peripheral vascular disease of extremity with claudication Rectus sheath hematoma Pre-syncope Essential (primary) hypertension Restless legs syndrome Daytime hypersomnia Somatic dysfunction of pelvic region DDD (degenerative disc disease), lumbar Overweight Seasonal allergies Carotid bruit Atherosclerotic heart disease of [place] coronary artery without angina pectoris PVD (peripheral vascular disease) COPD (chronic obstructive pulmonary disease) Home Medications ?Medication ?Instructions ?Recorded ?Last Taken ?Type handicap placcard #1 ea 09/28/19 Unknown Rx coenzyme Q10 100 mg capsule (Co 100 mg PO DAILY supple ment 05/03/20 01/29/25 History Q-10) cholecalciferol (vitamin D3) 100 100 mcg PO DAILY supp lement 11/03/20 01/29/25 History mcg (4,000 unit) tablet spacer #1 ea 01/12/21 Unknown Rx lancets #180 ea 07/18/23 Unknown Rx montelukast 10 mg tablet 10 mg PO QHS Respiratory #90 tabs 05/04/24 02/18/25 Rx atorvastatin 40 mg tablet 40 mg PO QODAY cholesterol # 45 tabs 05/13/24 01/27/25 Rx tamsulosin 0.4 mg capsule 0.4 mg PO DAILY prostate 01/22/25 History finasteride 5 mg tablet 5 mg PO DAILY prostate 06/2801/28/25 History insulin aspart U-100 100 unit/mL 10 unit (0.1 mL) subc ut TID 10/07/24 01/29/25 Rx subcutaneous cartridge (Novolog diabetes #15 mL PenFill U-100 Insulin aspart) handicap placard #1 ea 10/12/24 Unknown Rx budesonide-formoterol HFA 160 2 puff inhalation BID co pd #3 ea 10/16/24 01/28/25 Rx mcg-4.5 mcg/actuation aerosol inhaler (Symbicort) pantoprazole 40 mg tablet,delayed 40 mg PO DAILY reflu x #90 tabs 11/30/24 01/29/25 Rx release apixaban 2.5 mg tablet (Eliquis) 2.5 mg PO BID atrial fibrillation 12/14/24 02/19/25 Rx #180 tabs ipratropium bromide 21 mcg (0.03 2 spray intranasal BI D PRN allergy 12/14/24 Unknown History %) nasal spray symptoms blood sugar diagnostic (OneTouch #180 ea 12/21/24 Unkn own Rx Ultra Test strips) albuterol sulfate 90 mcg/actuation 2 inh inhalation Q4 H PRN shortness 01/04/25 01/28/25 Rx aerosol inhaler (Ventolin HFA) of breath or wheezing # 18 grams hydralazine 100 mg tablet 100 mg PO BID hypertension # 180 01/26/25 02/19/25 Rx tabs ranolazine 500 mg tablet,extended 500 mg PO BID chest pain #180 tabs 01/26/25 02/19/25 Rx release,12 hr ropinirole 1 mg tablet 3 mg (3 x 1 mg) PO QHS restl ess 01/26/25 02/18/25 Rx leg #90 tabs ipratropium 0.5 mg-albuterol 3 mg 3 ml inhalation TID SOB &/OR 01/29/25 01/28/25 History (2.5 mg base)/3 mL nebulization WHEEZING soln loratadine 10 mg tablet (Allergy 10 mg PO DAILY allerg ies 01/29/25 01/28/25
--- NOTE | 2025-03-04 13:28 | EX.ED.DYSGE1 ---
HPI History of Present Illness Chief Complaint: General Illness Detail of Chief Complaint: Weakness and shortness of breath Informant: patient and spouse/S.O. Narrative Narrative: Patient presents to the emergency department complaint of generalized weakness and feeling short of breath. He complains of exertional dyspnea. He said 2 prior admissions 1 on February 14 for possible CHF and then 1 on February 19. It was thought he may also have a viral infection. He had a follow-up visit yesterday with primary care physician had some blood work and today was told to come in and get evaluated because there might be ongoing infection given that he had an elevated white blood cell count. Patient had been on steroids but finished several days ago. Patient denies chest pain. He does have a cough that is mostly nonproductive and at times does bring up some green phlegm. He denies urinary symptoms. [facility] Medical History Right carotid bruit Stable angina Kidney disease GERD (gastroesophageal reflux disease) Irregular heart beat Myocardial infarct Complicated urinary tract infection Urinary tract infection Colonic mass Controlled type 2 diabetes mellitus Acute respiratory insufficiency Chronic kidney disease Chronic anemia Bilateral edema of lower extremity Urinary retention Fatigue Pleural effusion (HFpEF) heart failure with preserved ejection fraction Pneumonia Colon polyp Lightheadedness Chronic constipation Anemia Obstructive sleep apnea Coronary artery disease Gastroesophageal reflux disease Allergic rhinitis Hyperlipidemia Urinary retention Wears hearing aid Wears dentures Wears glasses Cancer History of steroid therapy Ambulates with cane Walker as ambulation aid Arthritis Kidney stone Easy bruising Back pain Injury of back History of hiatal hernia Former smoker BiPAP (biphasic positive airway pressure) dependence Asthma Hoarseness Chronic cough Leg cramps History of pain when walking History of stress test History of heart attack History of irregular heartbeat Recurrent urinary tract infection ALMEIDA (dyspnea on exertion) Chest pain Right leg swelling Patellar bursitis of right knee Asthma-COPD overlap syndrome Abdominal aortic aneurysm (AAA) Peripheral vascular disease of extremity with claudication Rectus sheath hematoma Pre-syncope Essential (primary) hypertension Restless legs syndrome Daytime hypersomnia Somatic dysfunction of pelvic region DDD (degenerative disc disease), lumbar Overweight Seasonal allergies Carotid bruit Atherosclerotic heart disease of [place] coronary artery without angina pectoris PVD (peripheral vascular disease) COPD (chronic obstructive pulmonary disease) Home Medications ?Medication ?Instructions ?Recorded ?Last Taken ?Type handicap placcard #1 ea 09/28/19 Unknown Rx coenzyme Q10 100 mg capsule (Co 100 mg PO DAILY supplement 05/03/20 01/29/25 History Q-10) cholecalciferol (vitamin D3) 100 100 mcg PO DAILY supplement 11/03/20 01/29/25 History mcg (4,000 unit) tablet spacer #1 ea 01/12/21 Unknown Rx lancets #180 ea 07/18/23 Unknown Rx montelukast 10 mg tablet 10 mg PO QHS Respiratory #90 tabs 05/04/24 02/18/25 Rx atorvastatin 40 mg tablet 40 mg PO QODAY cholesterol #45 tabs 05/13/24 01/27/25 Rx tamsulosin 0.4 mg capsule 0.4 mg PO DAILY prostate 06/01/24 01/22/25 History finasteride 5 mg tablet 5 mg PO DAILY prostate 06/28/24 01/28/25 History insulin aspart U-100 100 unit/mL 10 unit (0.1 mL) subcut TID 10/07/24 01/29/25 Rx subcutaneous cartridge (Novolog diabetes #15 mL PenFill U-100 Insulin aspart) handicap placard #1 ea 10/12/24 Unknown Rx budesonide-formoterol HFA 160 2 puff inhalation BID copd #3 ea 10/16/24 01/28/25 Rx mcg-4.5 mcg/actuation aerosol inhaler (Symbicort) pantoprazole 40 mg tablet,delayed 40 mg PO DAILY reflux #90 tabs 11/30/24 01/29/25 Rx release apixaban 2.5 mg tablet (Eliquis) 2.5 mg PO BID atrial fibrillation 12/14/24 02/19/25 Rx #180 tabs ipratropium bromide 21 mcg (0.03 2 spray intranasal BID PRN allergy 12/14/24 Unknown History %) nasal spray symptoms blood sugar diagnostic (OneTouch #180 ea 12/21/24 Unknown Rx Ultra Test strips) albuterol sulfate 90 mcg/actuation 2 inh inhalation Q4H PRN shortness 01/04/25 01/28/25 Rx aerosol inhaler (Ventolin HFA) of breath or wheezing #18 grams hydralazine 100 mg tablet 100 mg PO BID hypertension #180 01/26/25 02/19/25 Rx tabs ranolazine 500 mg tablet,extended 500 mg PO BID chest pain #180 tabs 01/26/25 02/19/25 Rx release,12 hr ropinirole 1 mg tablet 3 mg (3 x 1 mg) PO QHS restless 01/26/25 02/18/25 Rx leg #90 tabs ipratropium 0.5 mg-albuterol 3 mg 3 ml inhalation TID SOB &/OR 01/29/25 01/28/25 History (2.5 mg base)/3 mL nebulization WHEEZING soln loratadine 10 mg tablet (Allergy 10 mg PO DAILY allergies 01/29/25 01/28/25 History Relief (loratadine)) 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,hot stick man,cont #1 ea 02/01/25 Unknown Rx (FreeStyle [place] 3 [place]) 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 sensor (FreeStyle #3 ea 02/10/25 Unknown Rx Dwight 3 Plus Sensor device) insulin glargine 100 unit/mL (3 22 unit subcut DAILY diabetes 02/15/25 Unknown History mL) subcutaneous pen (Lantus Solostar U-100 Insulin) nitroglycerin 0.4 mg sublingual 0.4 mg sublingual Q5-15M PRN chest 02/15/25 Unknown Rx tablet (Nitrostat) pain #25 tabs pen needle, diabetic 31 gauge x #100 ea 02/15/25 Unknown Rx 1/4 (Unifine Pentips) aspirin 81 mg tablet,delayed 81 mg PO BREAKFAST heart health #0 02/18/25 Unknown Rx release tabs ferrous sulfate 325 mg (65 mg 325 mg PO DAILY low iron #30 tabs 02/18/25 Unknown Rx iron) tablet (FeroSul) lactulose 10 gram/15 mL oral 20 g (30 mL) PO DAILY constipation 02/18/25 Unknown Rx solution #946 mL carvedilol 6.25 mg tablet 6.25 mg PO BIDCM #60 tabs 02/22/25 Unknown Rx dextromethorphan-guaifenesin 10 5 ml PO Q4H PRN PRN Cough #0 mL 02/22/25 Unknown Rx mg-100 mg/5 mL oral syrup furosemide 40 mg tablet 40 mg PO UD #90 tabs 02/22/25 Unknown Rx prednisone 20 mg tablet 40 mg (2 x 20 mg) PO DAILY #10 tabs 02/22/25 Unknown Rx potassium chloride 10 mEq 20 meq (2 x 10 mEq) PO BIDCM 03/02/25 Unknown Rx tablet,extended release(part/cryst) supplement #60 tabs Allergy/AdvReac Type Severity Reaction Status Date / Time cilostazol (From Pletal) Allergy Unknown Verified 03/04/25 12:51 felodipine Allergy Hives Verified 03/04/25 12:51 levofloxacin Allergy Hives Verified 03/04/25 12:51 Sulfa (Sulfonamide Allergy Unknown Verified 03/04/25 12:51 Antibiotics) isosorbide AdvReac Intermediate low BP Verified 03/04/25 12:51 Family History Father Diabetes Cancer Prostate cancer Mother Dementia Brother Parkinsons Brother Cancer H/O vascular surgery Surgical History History of appendectomy History of surgical procedure H/O vascular surgery History of surgical procedure History of transurethral resection of prostate History of endarterectomy (07/2018) History of left heart catheterization (03/2014) History of coronary artery stent placement (02/17/08) History of vascular surgery (08/2018) History of hernia repair H/O aortic aneurysm repair (11/1998) Social History household members: spouse 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 status: 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 Smoking Status: Former smoker quit date: 08/07/08 pack-years: 2 Tobacco: How many years used: 52 Electronic Cigarette Use: not used how long ago did patient quit smokin years ago alcohol intake: current alcohol intake frequency: holidays/special occasions only details: hx of alcohol abuse substance use type: does not use caffeine: No what type of physical activity do you participate in: other details: Nustep frequency: 5-6 times per week duration: 15-30 minutes/day seatbelt use: always do you feel safe at home: Yes ROS ROS ED Review of Systems ROS Unobtainable: other Constitutional Constitutional ED: Reports lethargy; Denies chills, fever(s), sweats or weight loss Eyes Eyes: Denies blurry vision, change in vision or diplopia ENT ENT ED: Denies rhinorrhea or sore throat Cardiovascular Cardiovascular: Denies chest pain, orthopnea or racing heartbeat Respiratory/Chest Respiratory/Chest: Reports cough, dyspnea and dyspnea on exertion; Denies orthopnea or sputum Gastrointestinal Gastrointestinal: Denies abdominal pain, diarrhea, nausea or vomiting Genitourinary Genitourinary ED: Denies dysuria, hematuria or urinary frequency Musculoskeletal Musculoskeletal: Denies arthralgias, back pain, myalgias or neck pain Integumentary Denies abscess, Abrasions or rash Neurologic Neurologic: Denies headache(s) or weakness Psychiatric Psychiatric: Denies anxiety, depression or suicidal thoughts Endocrine Endocrinology: Denies polydipsia, polyphagia or polyuria Hematologic/Lymphatic Hematologic/Lymphatic: Denies easy bleeding, easy bruising or lymphadenopathy Allergic/Immunologic Allergic/Immunologic ED: Denies mouth swelling, tongue swelling or urticaria EXAM Physical Exam Const Vital Signs: 03/04/25 12:47 03/04/25 12:47 03/04/25 14:47 Temperature 99 F Temperature Source Temporal Pulse Rate 63 74 Respiratory Rate 14 16 Respiratory Pattern Irregular Blood Pressure 113/65 115/59 L Blood Pressure Mean 81 77 Pulse Ox 95 98 Oxygen Delivery Method Room Air Positive well nourished and well developed General Appearance ED: well developed and NAD HEENT Reports TM's clear and moist mucous membranes normocephalic and atraumatic; Negative for trauma or tenderness Tympanic Membrane ED: Yes TM's clear Eyes PERRL and EOMs intact bilaterally General Eye ED: Negative for pale conjunctiva or scleral icterus Neck no lymphadenopathy, supple and no JVD General: Negative for tenderness Chest Wall inspection of chest normal and palpation of chest normal Chest: Negative for tenderness Resp normal respiratory effort Resp Narrative: Patient with coarse rhonchi bilaterally with some faint expiratory wheezes. Effort and Inspection: Negative for respiratory distress or pain with movement Auscultation: wheezes; Negative for rhonchi or diminished lung sounds Cardio regular rate, regular rhythm, S1 normal heart sound, S2 normal heart sound and no murmurs Peripheral Pulses: pulses 2+ throughout GI normal to inspection, nondistended, normoactive bowel sounds, soft to palpation, non-tender, non-distended and no masses Back/Spine no CVA tenderness and no thoracic nor lumbar tenderness Extremity normal to inspection Extremity Narrative: +2 edema both lower extremity General Extremety ED: Yes edema General Extremity: edema Neuro oriented x3, CN's II-XII intact bilaterally, no sensory deficits noted and gait normal Sensorium / Orientation: awake, alert, oriented to person, oriented to place and oriented to time Motor Exam: strength 5/5 throughout and strength abnormal Psych mental status grossly normal Skin no rashes or lesions noted and no wounds MDM MDM MDM Narrative Medical decision making narrative: Patient presents with exertional dyspnea and continued cough. He has had several admissions this month 1 for CHF and another 1 for some hyperkalemia. Had an elevated white blood cell count yesterday and was advised to come back to the emergency department for concern for possible ongoing infection. Patient states that he was diagnosed with a virus with last admission but also had a sputum culture that he does not know the results of. He complains of significant exertional dyspnea and can only walk about 10 feet before having to stop for being winded. Patient to see a clean in places operator Dr. Painter. He denies chest pain. Currently on apixaban. With his last admission he had an echo that showed ejection fraction of 40% with enlarged left atrium. IV line established. CBC with differential obtained showed white, 10.7 with hemoglobin 11.3 and platelet count of 360. Chemistries unremarkable. BUN 72 and creatinine 2.55. Urinalysis was negative. BT [employer]BER was [id number]. Patient had a chest x-ray performed as an outpatient earlier today that showed findings consistent with pulmonary fibrosis worse on the right lung. Blood cultures ordered here. Reviewed patient's sputum results and it grew out 3 different bacteria including Enterobacter, Citrobacter, and Raoultella plantica. Started patient on Zosyn. Will ambulate patient with pulse ox. Will discuss with hospitalist to evaluate for admission. With ambulation patient's O2 sat dropped to 88% on room air and he was very dyspneic. Lab Data Attestation: I reviewed the patient's lab results. Labs: Laboratory Results - last 24 hr 03/04/25 03/04/25 13:46 14:53 WBC 10.7 RBC 3.25 L Hgb 11.3 L Hct 31.0 L MCV 95.4 H MCH 34.8 H MCHC 36.5 H D RDW Std Deviation 53.6 H RDW Coeff of Justin 17.2 H Plt Count 360 MPV 10.4 Immature Gran % (Auto) 0.900 Neut % (Auto) 85.0 H Lymph % (Auto) 7.8 L [place] % (Auto) 5.4 Eos % (Auto) 0.7 Baso % (Auto) 0.2 Absolute Neuts (auto) 9.1 H Absolute Lymphs (auto) 0.83 Nucleated RBC % 0 Sodium 133 Potassium 4.7 Chloride 94 L Carbon Dioxide 25.8 Anion Gap 12 BUN 72 H Creatinine 2.55 H Est GFR (MDRD) Non-Af 24 L BUN/Creatinine Ratio 28.2 H Glucose 129 H Calcium 9.1 NT pro BNP II 4021 H Urine Color Yellow Urine Clarity Clear Urine pH 6.0 Ur Specific [place] 1.010 Urine Protein 15 H Urine Glucose (UA) Normal Urine Ketones Negative Urine Occult Blood 10 H Urine Nitrite Negative Urine Bilirubin Negative Urine Urobilinogen Normal Ur Leukocyte Esterase 25 H Urine RBC 0-5 SEEN Urine WBC 0-5 SEEN Ur Squamous Epith Cells 0-5 SEEN Urine Bacteria 0 SEEN Urine Mucus 0 SEEN Radiography Chest X-Ray - ED: 1 View, Read by ED Physician, Read by Radiologist and Cardiomegaly Diagnostic Testing: Patient had a two-view chest x-ray obtained today and I was able to evaluate the images and on my interpretation patient has increased markings in the right lower lobe and left lower lobe concerning for infiltrate. Radiologist felt changes likely consistent with chronic interstitial fibrosis. EKG Initial EKG: Attestation: I personally reviewed and interpreted this EKG as follows: Comments: Atrial flutter with ventricular rate of [address] changes Discharge Plan Dx/Rx/DC Orders Clinical Impression: COPD exacerbation, Exertional dyspnea, Hypoxemia Disposition Disposition: Acute Care [facility]
[2025-03-04 14:11] LABS: Absolute Lymphocyte Count 0.83 X10^3/uL (0.83-4.51); Absolute Neutrophil Count 9.1 X10^3/uL (2.0-7.7); Basophil# 0.02 X10^3/uL; Basophil% 0.2 % (0-1); Eosinophil# 0.07 X10^3/uL; Eosinophils% 0.7 % (0-5); Hemoglobin 11.3 g/dL (13.0-16.5); Lymphocyte # 0.83 X10^3/ul (0.83-4.51); Lymphocyte % 7.8 % (19-41); Mean Corp Hgb Conc 36.5 g/dL (32-36); Mean Corpuscular Hgb 34.8 pg (27.0-32.0); Mean Corpuscular Volume 95.4 fL (80-94); Mean Platelet Vol. 10.4 fl (6.2-12.0); Monocyte# 0.58 X10^3/uL; Monocyte% 5.4 % (0-10); NRBC Flagged by Analyzer 0 % (0-5); Neutrophil # 9.09 X10^3/uL (2.7-7.7); Platelet Count 360 K/mm3 (150-450); RBC Distribution Width CV 17.2 % (11.6-14.6); RBC Distribution Width SD 53.6 fl (35.1-43.9); Red Blood Count 3.25 M/mm3 (4.6-6.2); White Blood Count 10.7 K/mm3 (4.4-11.0)
[2025-03-04 15:04] LABS: Bacteria 0 SEEN /hpf (None Seen); Mucous, Urine 0 SEEN /hpf (<or=2+)
[2025-03-04 15:05] LABS: Color, Urine Yellow (Yellow); Glucose, Dipstick Normal (Normal); Ketone-Dipstick Negative (Negative); Leukocyte Esterase-Dipstick 25 /ul (Negative); Nitrite-Dipstick Negative (Negative); Occult Blood-Urine 10 /ul (Negative); Protein-Dipstick 15 mg/dl (Negative); Urine Bilirubin Dipstick Negative (Negative); Urine Clarity Clear (Clear); Urine Urobilinogen Normal (Normal)
[2025-03-04 15:12] LABS: Red Blood Cells-Urine 0-5 SEEN /hpf (0-5); Squamous Epithelial Cells - UA 0-5 SEEN /hpf (0-5); White Blood Cells 0-5 SEEN /hpf (0-5)
[2025-03-04 15:21] LABS: Anion Gap 12 (5-15); BUN 72 mg/dL (4-19); BUN/Creat Ratio 28.2 RATIO (10-20); Calcium,Total 9.1 mg/dL (7.6-11.0); Carbon Dioxide 25.8 mmol/L (21.0-32.0); Chloride 94 mmol/L (98-108); Creatinine, Serum 2.55 mg/dL (0.70-1.20); EST Glomerular Filtration Rate 24 (>60); Glucose 129 mg/dL (70-99); Potassium 4.7 mmol/L (3.3-5.1); Pro- Brain NATRIURETIC PEPTIDE 4021 pg/mL (<=1800); Sodium Level 133 mmol/L (133-145)
--- NOTE | 2025-03-04 15:31 | EKG12_ITS ---
Test Reason : DYSP Blood Pressure : */* mmHG Vent. Rate : 68 BPM Atrial Rate : 322 BPM P-R Int : * ms QRS Dur : 94 ms QT Int : 428 ms P-R-T Axes : * 28 210 degrees QTcB Int : 455 ms Atrial flutter with variable A-V block Nonspecific ST and T wave abnormality Abnormal ECG Confirmed by Bryant Tsang ([id number]), greeting card editor LASHANDA GARNETT ([id number]) on 03/08/2025 10:36:43 AM Referred By: Confirmed By: Bryant Tsang
[2025-03-04] MEDS: Piperacil/Tazobactam 4.5 GM in 0.9% Normal Saline (100mL MB+) 100 ML IV (15:45)
[2025-03-04] MEDS: Ipratropium/Albuterol Sulfate 3 ML AMPUL.NEB INHALATION ×2 (15:52→21:05)
[2025-03-04 16:28] LABS: Troponin T High Sensitivity 61 ng/L (<=22)
--- NOTE | 2025-03-04 17:35 | PCM.HP.STD ---
[facility] - General General Date of Admission: 03/04/25 Date of Service: 03/04/25 HPI Narrative DESIREE ROSAS, is a 89 M with past medical history of congestive heart failure, recently discharged after management for acute decompensated heart failure on 02/18/2025, hypertension, dyslipidemia, obesity, MARIXA, type 2 diabetes, diabetic neuropathy, coronary artery disease s/p distal RCA stent on ranolazine, chronic atrial fibrillation/flutter, history of AAA repair, prior tobacco use, COPD, CKD with baseline creatinine around 2.3, iron deficiency anemia, peripheral vascular disease who presents concerns regarding leukocytosis with ongoing fatigue for the last few days. The patient was recently discharged from the hospital of an admission for NARENDRA following initiation of diuretics for acute decompensated heart failure. At the time of discharge he was sent home as he was maintaining saturation well on room air. Since his discharge notes progressive shortness of breath with occasional cough with expectoration. Today at the time of presentation in the ED, he was afebrile, blood pressure 113/65, respiratory rate 14, satting 95% on room air with no leukocytosis WBC 10.7 down from 15.0 yesterday, hemoglobin 11.3, platelet count 360, creatinine 2.5, BUN 72, sodium 133, potassium 4.7 troponin T 61, NT proBNP 4021 urine protein 15 with a leuk esterase of 25, 0-5 WBCs and no bacteria PFSH Medical History Right carotid bruit Stable angina Kidney disease GERD (gastroesophageal reflux disease) Irregular heart beat Myocardial infarct Complicated urinary tract infection Urinary tract infection Colonic mass Controlled type 2 diabetes mellitus Acute respiratory insufficiency Chronic kidney disease Chronic anemia Bilateral edema of lower extremity Urinary retention Fatigue Pleural effusion (HFpEF) heart failure with preserved ejection fraction Pneumonia Colon polyp Lightheadedness Chronic constipation Anemia Obstructive sleep apnea Coronary artery disease Gastroesophageal reflux disease Allergic rhinitis Hyperlipidemia Urinary retention Wears hearing aid Wears dentures Wears glasses Cancer History of steroid therapy Ambulates with cane Walker as ambulation aid Arthritis Kidney stone Easy bruising Back pain Injury of back History of hiatal hernia Former smoker BiPAP (biphasic positive airway pressure) dependence Asthma Hoarseness Chronic cough Leg cramps History of pain when walking History of stress test History of heart attack History of irregular heartbeat Recurrent urinary tract infection ALMEIDA (dyspnea on exertion) Chest pain Right leg swelling Patellar bursitis of right knee Asthma-COPD overlap syndrome Abdominal aortic aneurysm (AAA) Peripheral vascular disease of extremity with claudication Rectus sheath hematoma Pre-syncope Essential (primary) hypertension Restless legs syndrome Daytime hypersomnia Somatic dysfunction of pelvic region DDD (degenerative disc disease), lumbar Overweight Seasonal allergies Carotid bruit Atherosclerotic heart disease of [place] coronary artery without angina pectoris PVD (peripheral vascular disease) COPD (chronic obstructive pulmonary disease) Home Medications ?Medication ?Instructions ?Recorded ?Last Taken ?Type handicap placcard #1 ea 09/28/19 Unknown Rx coenzyme Q10 100 mg capsule (Co 100 mg PO DAILY supplement 05/03/20 01/29/25 History Q-10) cholecalciferol (vitamin D3) 100 100 mcg PO DAILY supplement 11/03/20 01/29/25 History mcg (4,000 unit) tablet spacer #1 ea 01/12/21 Unknown Rx lancets #180 ea 07/18/23 Unknown Rx montelukast 10 mg tablet 10 mg PO QHS Respiratory #90 tabs 05/04/24 02/18/25 Rx atorvastatin 40 mg tablet 40 mg PO QODAY cholesterol #45 tabs 05/13/24 01/27/25 Rx tamsulosin 0.4 mg capsule 0.4 mg PO DAILY prostate 06/01/24 01/22/25 History finasteride 5 mg tablet 5 mg PO DAILY prostate 06/28/24 01/28/25 History insulin aspart U-100 100 unit/mL 10 unit (0.1 mL) subcut TID 10/07/24 01/29/25 Rx subcutaneous cartridge (Novolog diabetes #15 mL PenFill U-100 Insulin aspart) handicap placard #1 ea 10/12/24 Unknown Rx budesonide-formoterol HFA 160 2 puff inhalation BID copd #3 ea 10/16/24 01/28/25 Rx mcg-4.5 mcg/actuation aerosol inhaler (Symbicort) pantoprazole 40 mg tablet,delayed 40 mg PO DAILY reflux #90 tabs 11/30/24 01/29/25 Rx release apixaban 2.5 mg tablet (Eliquis) 2.5 mg PO BID atrial fibrillation 12/14/24 02/19/25 Rx #180 tabs ipratropium bromide 21 mcg (0.03 2 spray intranasal BID PRN allergy 12/14/24 Unknown History %) nasal spray symptoms blood sugar diagnostic (OneTouch #180 ea 12/21/24 Unknown Rx Ultra Test strips) albuterol sulfate 90 mcg/actuation 2 inh inhalation Q4H PRN shortness 01/04/25 01/28/25 Rx aerosol inhaler (Ventolin HFA) of breath or wheezing #18 grams hydralazine 100 mg tablet 100 mg PO BID hypertension #180 01/26/25 02/19/25 Rx tabs ranolazine 500 mg tablet,extended 500 mg PO BID chest pain #180 tabs 01/26/25 02/19/25 Rx release,12 hr ropinirole 1 mg tablet 3 mg (3 x 1 mg) PO QHS restless 01/26/25 02/18/25 Rx leg #90 tabs ipratropium 0.5 mg-albuterol 3 mg 3 ml inhalation TID SOB &/OR 01/29/25 01/28/25 History (2.5 mg base)/3 mL nebulization WHEEZING soln loratadine 10 mg tablet (Allergy 10 mg PO DAILY allergies 01/29/25 01/28/25 History Relief (loratadine)) 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,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,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 #1 ea 02/01/25 Unknown Rx (FreeStyle [place] 3 [place]) 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 sensor (FreeStyle #3 ea 02/10/25 Unknown Rx Dwight 3 Plus Sensor device) insulin glargine 100 unit/mL (3 22 unit subcut DAILY diabetes 02/15/25 Unknown History mL) subcutaneous pen (Lantus Solostar U-100 Insulin) nitroglycerin 0.4 mg sublingual 0.4 mg sublingual Q5-15M PRN chest 02/15/25 Unknown Rx tablet (Nitrostat) pain #25 tabs pen needle, diabetic 31 gauge x #100 ea 02/15/25 Unknown Rx 1/4 (Unifine Pentips) aspirin 81 mg tablet,delayed 81 mg PO BREAKFAST heart health #0 02/18/25 Unknown Rx release tabs Held on 03/04/25. Instructions: Pt TOOK MYSELF OFF OF IT ferrous sulfate 325 mg (65 mg 325 mg PO DAILY low iron #30 tabs 02/18/25 Unknown Rx iron) tablet (FeroSul) lactulose 10 gram/15 mL oral 20 g (30 mL) PO DAILY constipation 02/18/25 Unknown Rx solution #946 mL dextromethorphan-guaifenesin 10 5 ml PO Q4H PRN PRN Cough #0 mL 02/22/25 Unknown Rx mg-100 mg/5 mL oral syrup furosemide 40 mg tablet 40 mg PO UD #90 tabs 02/22/25 Unknown Rx potassium chloride 10 mEq 20 meq (2 x 10 mEq) PO BIDCM 03/02/25 Unknown Rx tablet,extended release(part/cryst) supplement #60 tabs carvedilol 3.125 mg tablet 6.25 mg PO BID Heart 03/04/25 Unknown History Allergy/AdvReac Type Severity Reaction Status Date / Time cilostazol (From Pletal) Allergy Unknown Verified 03/04/25 12:51 felodipine Allergy Hives Verified 03/04/25 12:51 levofloxacin Allergy Hives Verified 03/04/25 12:51 Sulfa (Sulfonamide Allergy Unknown Verified 03/04/25 12:51 Antibiotics) isosorbide AdvReac Intermediate low BP Verified 03/04/25 12:51 Family History Father Diabetes Cancer Prostate cancer Mother Dementia Brother Parkinsons Brother Cancer H/O vascular surgery Surgical History History of appendectomy History of surgical procedure H/O vascular surgery History of surgical procedure History of transurethral resection of prostate History of endarterectomy (07/2018) History of left heart catheterization (03/2014) History of coronary artery stent placement (02/17/08) History of vascular surgery (08/2018) History of hernia repair H/O aortic aneurysm repair (11/1998) Social History household members: spouse 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 status: 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 Smoking Status: Former smoker quit date: 08/07/08 pack-years: 2 Tobacco: How many years used: 52 Electronic Cigarette Use: not used how long ago did patient quit smokin years ago alcohol intake: current alcohol intake frequency: holidays/special occasions only details: hx of alcohol abuse substance use type: does not use caffeine: No what type of physical activity do you participate in: other details: Nustep frequency: 5-6 times per week duration: 15-30 minutes/day seatbelt use: always do you feel safe at home: Yes ROS Review of Systems ROS Unobtainable: Denies due to encephalopathy, due to endotracheal tube, due to mental condition, due to mental status or other Constitutional Constitutional: Reports anorexia, chills and fatigue Eyes Eyes: Denies blurry vision, change in eye color, change in vision, discharge from eye(s), double vision, erythema, eye pain, loss of vision or other ENT HEENT: Denies abnormal hearing, dysphagia, ear pain, epistaxis, headache(s), hearing loss, nasal congestion, nasal discharge, post nasal drip, sinus pressure, sore throat or other Cardiovascular Cardiovascular: Denies chest pain, claudication, dyspnea on exertion, edema, lightheadedness, orthopnea, palpitations, paroxysmal nocturnal dyspnea, rapid heart rate, syncope or other Respiratory/Chest Respiratory/Chest: Denies cough, dyspnea, excessive phlegm production, hemoptysis, productive cough, shortness of breath at rest, shortness of breath with exertion, wheezing or other Gastrointestinal Gastrointestinal: Denies abdominal pain, coffee ground emesis, constipation, diarrhea, dyspepsia, hematemesis, hematochezia, loose stools, melena, nausea, vomiting or other Genitourinary Genitourinary: Denies burning urination, difficulty urinating, dysuria, hematuria, nocturia, urinary frequency, urinary hesitancy, urinary incontinence, urinary urgency or other Musculoskeletal Musculoskeletal: Denies arthralgias, back pain, joint pain, joint stiffness, joint swelling, myalgias, neck pain or other Neurologic Neurologic: Denies abnormal gait, abnormal speech, confusion, disequilibrium, dizziness, focal weakness, headache(s), numbness, paresthesias, seizure-like activity, seizures, syncope, tingling, tremor(s) or other Psychiatric Psychiatric: Denies anxiety, depression, homicidal ideation, suicidal ideation or other Endocrine Endocrinology: Denies change in body appearance, cold intolerance, excessive sweating, heat intolerance, polydipsia, polyuria or other Hematologic/Lymphatic Hematologic/Lymphatic: Denies anemia, easy bleeding, easy bruising, lymphadenopathy or other Allergic/Immunologic Allergic/Immunologic: Denies rhinitis, hives, eczemia, asthma or other Vital Signs Vital Signs Vital Signs: 03/04/25 12:47 03/04/25 12:47 03/04/25 14:47 Temperature 99 F Temperature Source Temporal Pulse Rate 63 74 Respiratory Rate 14 16 Respiratory Pattern Irregular Blood Pressure 113/65 115/59 L Blood Pressure Mean 81 77 Pulse Ox 95 98 Oxygen Delivery Method Room Air 03/04/25 15:53 03/04/25 16:00 Temperature 97.8 F Temperature Source Pulse Rate 72 63 Respiratory Rate 18 18 Respiratory Pattern Normal Blood Pressure 126/64 H Blood Pressure Mean 84 Pulse Ox 98 Oxygen Delivery Method Physical Exam Const alert, oriented x3 and no apparent distress HEENT normocephalic and head/scalp atraumatic Eyes PERRL and EOMs intact bilaterally Neck no lymphadenopathy Resp normal respiratory effort and no retractions Resp Narrative: Decreased bilateral breath sounds Cardio regular rate and regular rhythm GI normal to inspection, nondistended, normoactive bowel sounds Extremity normal to inspection Neuro oriented x3 and CN's II-XII intact bilaterally Results Lab / Micro Data 03/04/25 13:46 03/04/25 13:46 Labs: Laboratory Results - last 24 hr 03/04/25 13:46: WBC 10.7, RBC 3.25 L, Hgb 11.3 L, Hct 31.0 L, MCV 95.4 H, MCH 34.8 H, MCHC 36.5 H D, RDW Std Deviation 53.6 H, RDW Coeff of Justin 17.2 H, Plt Count 360, MPV 10.4, Immature Gran % (Auto) 0.900, Neut % (Auto) 85.0 H, Lymph % (Auto) 7.8 L, [place] % (Auto) 5.4, Eos % (Auto) 0.7, Baso % (Auto) 0.2, Absolute Neuts (auto) 9.1 H, Absolute Lymphs (auto) 0.83, Nucleated RBC % 0, Sodium 133, Potassium 4.7, Chloride 94 L, Carbon Dioxide 25.8, Anion Gap 12, BUN 72 H, Creatinine 2.55 H, Est GFR (MDRD) Non-Af 24 L, BUN/Creatinine Ratio 28.2 H, Glucose 129 H, Calcium 9.1, Troponin T High Sens 61 H* D, NT pro BNP II 4021 H 03/04/25 14:53: Urine Color Yellow, Urine Clarity Clear, Urine pH 6.0, Ur Specific [place] 1.010, Urine Protein 15 H, Urine Glucose (UA) Normal, Urine Ketones Negative, Urine Occult Blood 10 H, Urine Nitrite Negative, Urine Bilirubin Negative, Urine Urobilinogen Normal, Ur Leukocyte Esterase 25 H, Urine RBC 0-5 SEEN, Urine WBC 0-5 SEEN, Ur Squamous Epith Cells 0-5 SEEN, Urine Bacteria 0 SEEN, Urine Mucus 0 SEEN Assessment & Plan Assessment/Plan (1) Exertional dyspnea: PLAN: Plan 89-year-old male who was recently discharged after management for NARENDRA following initiation of diuretics for acute decompensated heart failure, presents to the ED with concerns regarding leukocytosis noticed by PCP and also shortness of breath. At the time of ambulation in the ED his saturation dropped to 88% requiring oxygen and hence he is being admitted for further evaluation and workup. He was started on Zosyn for his prior bacteria seen on sputum culture and will continue the same. #Shortness of breath - Prior sputum culture showed Citrobacter, Enterobacter, Raoultella latter sensitive to Zosyn - Has progressive shortness of breath and decompensated while ambulating in the ED - Bronchopulmonary hygiene - Admit to [facility] for further evaluation management - PT/OT evaluation - May benefit from transfer to correction facility at the time of discharge - Continue IV Zosyn for now # CKD -Creatinine and BUN are baseline - Continue home medications #Cardiomyopathy? Ischemic - Will continue losartan for now with close monitoring of the potassium - Continue home diuretic - Continue carvedilol 3.125 mg twice daily #Coronary artery disease - Continue with neurology and as needed sublingual NTG - EKG was reviewed and no features of ischemia, patient is clinically asymptomatic - Elevated high-sensitivity troponin is likely because of the NARENDRA #COPD #Acute bronchitis - Continue home medications for now -Respiratory therapy #Debility due to chronic illness - PT OT evaluation regarding placement to correction facility - endorses need for further support at home with time of discharge #A-fib - Continue carvedilol and Eliquis #Abnormal body movements - MRI was normal, continue gabapentin based on the recent neurology evaluation next #Type 2 diabetes - Continue home insulin with glargine, aspart #AAA repair: Noted #GERD: Continue home medication #Restless leg syndrome: Continue ropinirole #Iron-deficiency anemia - Continue ferrous sulfate supplementation #DVT prophylaxis - Continue apixaban #Code discussion: Full code
[2025-03-04] MEDS: Budesonide Respules 0.5 MG/2 ML AMPUL.NEB. INHALATION (21:05)
[2025-03-04] MEDS: Piperacil/Tazobactam 3.375 GM in 0.9% Normal Saline (50mL MB+) 50 ML IV (22:24)
[2025-03-04] MEDS: 0.9% Normal Saline (250mL Bag) 250 ML 15 ML IV (22:24)
[2025-03-04] MEDS: guaiFENesin Dm 10 ML UDC 5 ML PO (22:25)
[2025-03-04] MEDS: APIXABAN 2.5 MG TABLET (WCH) PO (22:27)
[2025-03-04] MEDS: Pramipexole Di-HCl 0.5 MG Tablet 1.5 MG PO (22:27)
[2025-03-04] MEDS: hydrALAZINE 50 MG Tablet 100 MG PO (22:27)
[2025-03-04] MEDS: Tamsulosin HCl 0.4 MG Capsule PO (22:28)
[2025-03-04] MEDS: Finasteride 5 MG Tablet PO (22:28)
[2025-03-04] MEDS: Montelukast 10 MG Tablet PO (22:28)
[2025-03-04] MEDS: Ranolazine 500 MG Tablet PO (22:29)
[2025-03-05] VITALS (11 sets, daily range): BP systolic 117–131; BP diastolic 57–71; PULSE 56–78; RESP 16–20; TEMP 36.4–36.7; O2SAT 94–96
[2025-03-05 00:25] LABS: Bedside Glucose 257 mg/dL (74-106)
[2025-03-05] MEDS: Piperacil/Tazobactam 3.375 GM in 0.9% Normal Saline (50mL MB+) 50 ML IV ×3 (05:06→21:41)
[2025-03-05 06:15] LABS: Absolute Lymphocyte Count 0.96 X10^3/uL (0.83-4.51); Absolute Neutrophil Count 8.9 X10^3/uL (2.0-7.7); Basophil# 0.01 X10^3/uL; Basophil% 0.1 % (0-1); Eosinophil# 0.09 X10^3/uL; Eosinophils% 0.9 % (0-5); Hematocrit 33.7 % (40-54); Hemoglobin 10.8 g/dL (13.0-16.5); Lymphocyte # 0.96 X10^3/ul (0.83-4.51); Lymphocyte % 9.1 % (19-41); Mean Corpuscular Hgb 29.2 pg (27.0-32.0); Mean Corpuscular Volume 91.1 fL (80-94); Mean Platelet Vol. 9.9 fl (6.2-12.0); Monocyte# 0.57 X10^3/uL; Monocyte% 5.4 % (0-10); NRBC Flagged by Analyzer 0 % (0-5); Neutrophil # 8.85 X10^3/uL (2.7-7.7); Neutrophil % 83.6 % (47-70); Platelet Count 346 K/mm3 (150-450); RBC Distribution Width CV 16.2 % (11.6-14.6); RBC Distribution Width SD 53.1 fl (35.1-43.9); White Blood Count 10.6 K/mm3 (4.4-11.0)
[2025-03-05 06:36] LABS: International Normalized Ratio 1.8; Prothrombin Time (Protime)PT. 21.6 SECONDS (11.7-14.9)
[2025-03-05 06:53] LABS: ALB/GLOB Ratio 0.9 RATIO (0.9-2.4); AST(SGOT) 20 U/L (<=37); Alanine Aminotransfer ALT/SGPT 12 U/L (<=46); Albumin, Serum 3.2 g/dL (3.4-4.8); Alkaline Phosphatase 69 U/L (40-129); Anion Gap 12 (5-15); BUN 66 mg/dL (4-19); BUN/Creat Ratio 26.5 RATIO (10-20); Bilirubin, Direct 0.34 mg/dL (0.00-0.30); Calcium,Total 9.1 mg/dL (7.6-11.0); Carbon Dioxide 25.6 mmol/L (21.0-32.0); Chloride 97 mmol/L (98-108); EST Glomerular Filtration Rate 24 (>60); Globulin 3.4 g/dL (2.2-4.2); Glucose 109 mg/dL (70-99); Magnesium 2.1 mg/dL (1.5-2.2); Phosphorus 3.5 mg/dL (2.7-4.5); Potassium 4.3 mmol/L (3.3-5.1); Protein, Total 6.6 g/dL (5.9-8.4); Sodium Level 134 mmol/L (133-145); Total Bilirubin 0.58 mg/dL (0.00-1.30)
[2025-03-05] MEDS: Ipratropium/Albuterol Sulfate 3 ML AMPUL.NEB INHALATION ×3 (07:28→21:16)
[2025-03-05] MEDS: Budesonide Respules 0.5 MG/2 ML AMPUL.NEB. INHALATION ×2 (07:28→21:16)
[2025-03-05] MEDS: Menthol/Lanolin/Calamine/Znox 113 GM Tube 1 APPLIC TOPICAL ×2 (09:20→21:39)
[2025-03-05] MEDS: hydrALAZINE 50 MG Tablet 100 MG PO ×2 (09:20→21:41)
[2025-03-05] MEDS: Loratadine 10 MG Tablet PO (09:21)
[2025-03-05] MEDS: APIXABAN 2.5 MG TABLET (WCH) PO ×2 (09:21→21:40)
[2025-03-05] MEDS: Insulin Glargine-YFGN 100 UNIT/ML Pen 22 UNIT SC (09:21)
[2025-03-05] MEDS: Pantoprazole Sodium 40 MG Tablet PO (09:22)
[2025-03-05] MEDS: Ranolazine 500 MG Tablet PO ×2 (09:22→21:40)
[2025-03-05] MEDS: Furosemide 80 MG Tablet PO (09:22)
[2025-03-05] MEDS: Atorvastatin Calcium 40 MG Tablet PO (09:22)
[2025-03-05 10:13] LABS: Bedside Glucose 139 mg/dL (74-106)
[2025-03-05] MEDS: Insulin Lispro 100 UNIT/ML INSULN.PEN 10 UNIT SC ×2 (12:25→18:17)
[2025-03-05 12:45] LABS: Bedside Glucose 223 mg/dL (74-106)
--- NOTE | 2025-03-05 14:58 | PN_ITS ---
Subjective Subjective Patient seen and examined. He admits to a cough which is productive of occasional greenish colored sputum. He denied any fever, chills, palpitations, dizziness, nausea or vomiting or any other symptoms. He is on room air. Review of systems otherwise negative. Objective Data Objective Data Vital Signs: Vital Signs Temp Pulse Resp BP Pulse Ox O2 Del Method 98.1 F 73 16 125/60 H 96 Room Air 03/05/25 08:42 03/05/25 13:16 03/05/25 13:16 03/05/25 08:42 03/05/25 08:42 03/05/25 08:43 Oxygen Delivery Method Room Air Weight: 191 lb 4.8 oz Body Mass Index (BMI) 29.0 Intake & Output: Intake and Output for Last 24 Hours 03/03/25 03/04/25 03/05/25 23:59 23:59 23:59 Intake Total 100 / 400 800 / 800 Balance 100 / 400 800 / 800 Lab / Micro Data 03/05/25 06:02 03/05/25 06:02 Labs: Laboratory Results - last 24 hr 03/04/25 13:46: Sodium 133, Potassium 4.7, Chloride 94 L, Carbon Dioxide 25.8, Anion Gap 12, BUN 72 H, Creatinine 2.55 H, Est GFR (MDRD) Non-Af 24 L, B UN/Creatinine Ratio 28.2 H, Glucose 129 H, Calcium 9.1, Troponin T High Sens 61 H* D, NT pro BNP II 4021 H 03/04/25 14:53: Urine Color Yellow, Urine Clarity Clear, Urine pH 6.0, Ur Specific [place] 1.010, Urine Protein 15 H, Urine Glucose (UA) Normal, Urine Ketones Negative, Urine Occult Blood 10 H, Urine Nitrite Negative, Urine Bilirubin Negative, Urine Urobilinogen Normal, Ur Leukocyte Esterase 25 H, Urine RBC 0-5 SEEN, Urine WBC 0-5 SEEN, Ur Squamous Epith Cells 0-5 SEEN, Urine Bacteria 0 SEEN, Urine Mucus 0 SEEN 03/04/25 22:35: POC Glucose 257 H 03/05/25 06:02: WBC 10.6, RBC 3.70 L, Hgb 10.8 L, Hct 33.7 L, MCV 91.1, MCH 29.2, MCHC 32.0 D, RDW Std Deviation 53.1 H, RDW Coeff of [place] 16.2 H, Plt Count 346, MPV 9.9, Immature Gran % (Auto) 0.900, Neut % (Auto) 83.6 H, Lymph % (Auto) 9.1 L, [place] % (Auto) 5.4, Eos % (Auto) 0.9, Baso % (Auto) 0.1, Absolute Neuts (auto) 8.9 H, Absolute Lymphs (auto) 0.96, Nucleated RBC % 0, PT 21.6 H, INR 1.8, Sodium 134, Potassium 4.3, Chloride 97 L, Carbon Dioxide 25.6, Anion Gap 12, BUN 66 H, Creatinine 2.50 H, Estim Creat Clear Calc 22.30 L, Est GFR (MDRD) Non-Af 24 L, BUN/Creatinine Ratio 26.5 H, Glucose 109 H, Calcium 9.1, Phosphorus 3.5, Magnesium 2.1, Total Bilirubin 0.58, Direct Bilirubin 0.34 H, AST 20, ALT 12, Alkaline Phosphatase 69, Total Protein 6.6, Albumin 3.2 L, Globulin 3.4, Albumin/Globulin Ratio 0.9, TSH 1.620 03/05/25 09:18: POC Glucose 139 H 03/05/25 12:05: POC Glucose 223 H Micro: Microbiology 03/04/25 20:10 Sputum, Expectorated/Coughed Gram Stain - Final Physical Exam Const alert, oriented x3 and no apparent distress Constitutional Narrative: frail General Appearance: cooperative HEENT normocephalic, head/scalp atraumatic, moist oral mucous membranes and oropharynx normal Eyes PERRL and EOMs intact bilaterally Neck supple and no JVD Lymph Lymphatic: no lymphedema noted Resp Resp Narrative: mildly diminished breath sounds bibasally, no wheezes or crackles. On room air. Cardio regular rate, regular rhythm, S1 normal heart sound, S2 normal heart sound and no murmurs GI normal to inspection, nondistended, normoactive bowel sounds, soft to palpation, non-tender and non-distended Extremity normal capillary refill, no clubbing, cyanosis or edema and no calf tenderness General Extremity: no tenderness to palpation of joints or extremities Skin General Skin Exam: no breakdown Neuro CN's II-XII intact bilaterally, no focal motor deficits and no sensory deficits noted Motor Exam: general weakness Psych thought process normal and cooperative Appearance: appropriate Assessment & Plan Assessment/Plan (1) Hypoxemia: (2) COPD exacerbation: (3) Acute cough: PLAN: Plan #Hypoxia due to COPD exacerbation and probable pneumonia benito acute on chronic exacerbation of heart failure * admitted with a complaint of shortness of breath. He was recently admitted and treated for acute decompensated herat failure. * he is currently on room air. * on IV zosyn. Previous sputum cultures grew Citrobactere, Enterobacter and Raoultella sensitive to zosyn. These cultures were from 02/19/2025. Again it does not appear that he was placed on antibiotics for this. * Chest x-ray with this admission showed findings suggestive of chronic interstitial fibrosis and did not show any evidence of pneumonia. Therefore not convinced that patient has pneumonia and I think it is all likely related to his heart. * breathing treatment with bronchodilators * titrate oxygen to maintain sats >90% * Initial troponin was 61. Troponins were not cycled. During his most recent admission his troponins peaked at 271. * 2D echo done on 02/15/2025 showed moderate concentric left ventricular hypertrophy with left ventricular EF of 40% and bouts of moderate hypokinesis of the left ventricle with left atrium severely enlarged and right atrium mildly enlarged. It does not appear that cardiology saw him during that admission despite his elevated troponins and decreased EF * I do think it is prudent to get cardiology to evaluate him as he has presented again with shortness of breath. I think he will benefit from cardiac cath * Will cycle troponins * #Acute exacerbation of heart failure with reduced ejection fraction * 2D echo as above. Has known EF of 40%. Will hold all Lasix and start diuresis with IV Lasix. * Consult cardiology as stated above on account of the echo findings. * fluid restriction to 1500cc daily * pro BNP is elevated at >4000 * #CKD III: Cr is 2.5, at her baseline. Will monitor. #CAD: on SL nitroglycerin prn. 2D echo as above. Consult cardiology. He has a history of CAD s/p stent in hal RCA. #COPD: not in exacerbation. Breathing treatment with bronchodilators. #Afib: on carvedilol and eliquis #Type 2 diabetes mellitus: on lantus. ISS. Accuchecks ACHS #History of restless leg syndrome: on ropinirole. DVT prophylaxis: on eliquis Disposition: transfer to PCU Charges/Coding Visit Charges Inpatient E&M: 48678 Subs Hosp L2
--- NOTE | 2025-03-05 15:03 | CASEMGMT ---
Discharge Planning A list of?SNF providers including quality and resource use data and consistent with the patient's preferred geographic region, medical needs, and insurance network was created in [facility] [facility].? This list was provided to the BRYAN. Imani Doll, Discharge Planning Asst
--- NOTE | 2025-03-05 15:21 | CASEMGMT ---
[facility]LE[facility] BECERRA Readmission Note Previous Admission: 02/19/25-02/22/25 Diagnosis: NARENDRA DC Disposition:Home Current Admission: Admitted 03/04/25 Current Diagnosis: Infection Pt dc'd from prior admission after exac of COPD with hypoxia secondary to parainfluenza 3 viral infection and acute on chronic CHF. Pt was given IV solumedrol, aerosols, and lasix. Cr was improved and pt was on RA. Pt was denied TCU, pt and state not by insurance but by the unit. Pt opted to go home without HHC. COLLEEN BECERRA into pt room, pt states since being home he has been taking medications as ordered. He states he has been getting sob at home and having coughing fits and tremors. Pt has since started OP therapy and would like to continue this. Discussed dc options such as SNF, HHC and OP therapy. Pt states going to a SNF s/t is not going to help him. He states he doesn't feel a nurse will help him at home either. Pt would like to return to OP therapy. Pt and state they are just looking for answers to see if he has an infection somewhere that is causing his problems. Pt states he is awaiting pulm c/s via computer. Pt was at urgent care who then sent pt to [facility] ER. COLLEEN BECERRA to follow. DC Plan: OP therapy to resume pending course of hospitalization
[2025-03-05] MEDS: Furosemide 40 MG Tablet PO (16:11)
[2025-03-05] MEDS: Carvedilol 6.25 MG Tablet PO (16:12)
[2025-03-05 16:36] LABS: Troponin T High Sensitivity 63 ng/L (<=22)
[2025-03-05 18:01] LABS: Bedside Glucose 135 mg/dL (74-106)
--- NOTE | 2025-03-05 18:08 | CT_ITS ---
PROCEDURE: CHEST WITHOUT CONTRAST 03/05/2025 REASON FOR EXAM: DYSPNEA, CHF, EMPHYSEMA, POSSIBLE FIBROSIS TECHNIQUE: Chest CT without contrast. Coronal and Sagittal reconstruction series were provided. One or more dose reduction techniques were used (e.g., Automated exposure control, adjustment of the mA and/or kV according to patient size, use of iterative reconstruction technique RADIATION DOSE SUMMARY: DLP: 464 mGycm COMPARISON: No prior CT available at the time of the study. FINDINGS: LUNGS AND PLEURAL SPACES: Bibasilar consolidations, left more than right, which may reflect aspiration, early stages of pneumonia, and/or atelectasis. Scattered tree-in-bud and reticular densities may reflect atypical pneumonia/postinflammatory changes with likely component of fibrosis/underlying chronic lung disease. Right middle lobe calcified granuloma. Heart: Coronary artery calcifications. Mild cardiomegaly. Trace pericardial effusion. Extensive atherosclerosis of the thoracic aorta. Mediastinum: Prominent scattered mediastinal lymph nodes. Esophagus is unremarkable. No hiatal hernia. THYROID: Unremarkable. No thyroid lesions. BONES/JOINTS: Right clavicular hardware. No acute fractures. CT/Chest without Contrast IMPRESSION: Bibasilar consolidations, left more than right, which may reflect aspiration, e coral stages of pneumonia, and/or atelectasis. Scattered tree-in-bud and reticular densities may reflect atypical pneumonia/po stinflammatory changes with likely component of fibrosis/underlying chronic lung disease. Extensive pulmonary emphysema. Mild cardiomegaly and trace pericardial effusion. Mediastinal lymphadenopathy. Reading Location: [id number]
--- NOTE | 2025-03-05 18:12 | PCMCONS.TICU ---
HPI Consult Data Date of Consult: 03/05/25 HPI Narrative HPI Narrative: DESIREE ROSAS, is a 89yo M w/ CHF EF 40%, COPD, chronic Afib/flutter, h/o AAA repair, CKD, HTN, MARIXA, DM, PAD, ho tobacco use who was admitted with worsening fatigue. He was recently discharged from here for CHF exacerbation requiring IV diuresis. Since discharge he has had progressive worsening dyspnea and productive cough with greenish/phlegm. Had transient CP but now resolved. No fevers/chills, sick contacts, worsening LE swelling, vomiting, diarrhea. Pulmonary consulted for further assistance. Pt currently breathing comfortably on RA. Feels breathing improving compared to yest. Quit smoking 2007. ROS: 12-point ROS negative except as above. [facility] Medical History Right carotid bruit Stable angina Kidney disease GERD (gastroesophageal reflux disease) Irregular heart beat Myocardial infarct Complicated urinary tract infection Urinary tract infection Colonic mass Controlled type 2 diabetes mellitus Acute respiratory insufficiency Chronic kidney disease Chronic anemia Bilateral edema of lower extremity Urinary retention Fatigue Pleural effusion (HFpEF) heart failure with preserved ejection fraction Pneumonia Colon polyp Lightheadedness Chronic constipation Anemia Obstructive sleep apnea Coronary artery disease Gastroesophageal reflux disease Allergic rhinitis Hyperlipidemia Urinary retention Wears hearing aid Wears dentures Wears glasses Cancer History of steroid therapy Ambulates with cane Walker as ambulation aid Arthritis Kidney stone Easy bruising Back pain Injury of back History of hiatal hernia Former smoker BiPAP (biphasic positive airway pressure) dependence Asthma Hoarseness Chronic cough Leg cramps History of pain when walking History of stress test History of heart attack History of irregular heartbeat Recurrent urinary tract infection ALMEIDA (dyspnea on exertion) Chest pain Right leg swelling Patellar bursitis of right knee Asthma-COPD overlap syndrome Abdominal aortic aneurysm (AAA) Peripheral vascular disease of extremity with claudication Rectus sheath hematoma Pre-syncope Essential (primary) hypertension Restless legs syndrome Daytime hypersomnia Somatic dysfunction of pelvic region DDD (degenerative disc disease), lumbar Overweight Seasonal allergies Carotid bruit Atherosclerotic heart disease of [place] coronary artery without angina pectoris PVD (peripheral vascular disease) COPD (chronic obstructive pulmonary disease) Home Medications ?Medication ?Instructions ?Recorded ?Last Taken ?Type handicap placcard #1 ea 09/28/19 Unknown Rx coenzyme Q10 100 mg capsule (Co 100 mg PO DAILY supplement 05/03/20 01/29/25 History Q-10) cholecalciferol (vitamin D3) 100 100 mcg PO DAILY supplement 11/03/20 01/29/25 History mcg (4,000 unit) tablet spacer #1 ea 01/12/21 Unknown Rx lancets #180 ea 07/18/23 Unknown Rx montelukast 10 mg tablet 10 mg PO QHS Respiratory #90 tabs 05/04/24 02/18/25 Rx atorvastatin 40 mg tablet 40 mg PO QODAY cholesterol #45 tabs 05/13/24 01/27/25 Rx tamsulosin 0.4 mg capsule 0.4 mg PO DAILY prostate 06/01/24 01/22/25 History finasteride 5 mg tablet 5 mg PO DAILY prostate 06/28/24 01/28/25 History insulin aspart U-100 100 unit/mL 10 unit (0.1 mL) subcut TID 10/07/24 01/29/25 Rx subcutaneous cartridge (Novolog diabetes #15 mL PenFill U-100 Insulin aspart) handicap placard #1 ea 10/12/24 Unknown Rx budesonide-formoterol HFA 160 2 puff inhalation BID copd #3 ea 10/16/24 01/28/25 Rx mcg-4.5 mcg/actuation aerosol inhaler (Symbicort) pantoprazole 40 mg tablet,delayed 40 mg PO DAILY reflux #90 tabs 11/30/24 01/29/25 Rx release apixaban 2.5 mg tablet (Eliquis) 2.5 mg PO BID atrial fibrillation 12/14/24 02/19/25 Rx #180 tabs ipratropium bromide 21 mcg (0.03 2 spray intranasal BID PRN allergy 12/14/24 Unknown History %) nasal spray symptoms blood sugar diagnostic (OneTouch #180 ea 12/21/24 Unknown Rx Ultra Test strips) albuterol sulfate 90 mcg/actuation 2 inh inhalation Q4H PRN shortness 01/04/25 01/28/25 Rx aerosol inhaler (Ventolin HFA) of breath or wheezing #18 grams hydralazine 100 mg tablet 100 mg PO BID hypertension #180 01/26/25 02/19/25 Rx tabs ranolazine 500 mg tablet,extended 500 mg PO BID chest pain #180 tabs 01/26/25 02/19/25 Rx release,12 hr ropinirole 1 mg tablet 3 mg (3 x 1 mg) PO QHS restless 01/26/25 02/18/25 Rx leg #90 tabs ipratropium 0.5 mg-albuterol 3 mg 3 ml inhalation TID SOB &/OR 01/29/25 01/28/25 History (2.5 mg base)/3 mL nebulization WHEEZING soln loratadine 10 mg tablet (Allergy 10 mg PO DAILY allergies 01/29/25 01/28/25 History Relief (loratadine)) 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,body cleaner,cont #1 ea 02/01/25 Unknown Rx (FreeStyle [place] 3 [place]) 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 sensor (FreeStyle #3 ea 02/10/25 Unknown Rx Dwight 3 Plus Sensor device) insulin glargine 100 unit/mL (3 22 unit subcut DAILY diabetes 02/15/25 Unknown History mL) subcutaneous pen (Lantus Solostar U-100 Insulin) nitroglycerin 0.4 mg sublingual 0.4 mg sublingual Q5-15M PRN chest 02/15/25 Unknown Rx tablet (Nitrostat) pain #25 tabs pen needle, diabetic 31 gauge x #100 ea 02/15/25 Unknown Rx 1/4 (Unifine Pentips) aspirin 81 mg tablet,delayed 81 mg PO BREAKFAST heart health #0 02/18/25 Unknown Rx release tabs Held on 03/04/25. Instructions: Pt TOOK MYSELF OFF OF IT ferrous sulfate 325 mg (65 mg 325 mg PO DAILY low iron #30 tabs 02/18/25 Unknown Rx iron) tablet (FeroSul) lactulose 10 gram/15 mL oral 20 g (30 mL) PO DAILY constipation 02/18/25 Unknown Rx solution #946 mL dextromethorphan-guaifenesin 10 5 ml PO Q4H PRN PRN Cough #0 mL 02/22/25 Unknown Rx mg-100 mg/5 mL oral syrup furosemide 40 mg tablet 40 mg PO UD #90 tabs 02/22/25 Unknown Rx potassium chloride 10 mEq 20 meq (2 x 10 mEq) PO BIDCM 03/02/25 Unknown Rx tablet,extended release(part/cryst) supplement #60 tabs carvedilol 3.125 mg tablet 6.25 mg PO BID Heart 03/04/25 Unknown History Allergy/AdvReac Type Severity Reaction Status Date / Time cilostazol (From Pletal) Allergy Unknown Verified 03/04/25 12:51 felodipine Allergy Hives Verified 03/04/25 12:51 levofloxacin Allergy Hives Verified 03/04/25 12:51 Sulfa (Sulfonamide Allergy Unknown Verified 03/04/25 12:51 Antibiotics) isosorbide AdvReac Intermediate low BP Verified 03/04/25 12:51 Family History Father Diabetes Cancer Prostate cancer Mother Dementia Brother Parkinsons Brother Cancer H/O vascular surgery Surgical History History of appendectomy History of surgical procedure H/O vascular surgery History of surgical procedure History of transurethral resection of prostate History of endarterectomy (07/2018) History of left heart catheterization (03/2014) History of coronary artery stent placement (02/17/08) History of vascular surgery (08/2018) History of hernia repair H/O aortic aneurysm repair (11/1998) Social History household members: spouse 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 status: 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 Smoking Status: Former smoker quit date: 08/07/08 pack-years: 2 Tobacco: How many years used: 52 Electronic Cigarette Use: not used how long ago did patient quit smokin years ago alcohol intake: current alcohol intake frequency: holidays/special occasions only details: hx of alcohol abuse substance use type: does not use caffeine: No what type of physical activity do you participate in: other details: Nustep frequency: 5-6 times per week duration: 15-30 minutes/day seatbelt use: always do you feel safe at home: Yes Objective Data Objective Data Vital Signs: Vital Signs Last response Temperature 36.6 C 03/05/25 17:52 Temperature Source Oral 03/05/25 17:52 Pulse Rate 69 03/05/25 17:52 Pulse Strength Normal (2+) 03/05/25 10:00 Respiratory Rate 18 03/05/25 17:52 Respiratory Effort Normal, Short of Breath 03/05/25 08:43 Respiratory Depth Normal 03/05/25 08:43 Respiratory Pattern Normal 03/05/25 13:16 Blood Pressure 131/71 H 03/05/25 17:52 Blood Pressure Mean 91 03/05/25 17:52 Blood Pressure Source Monitor 03/05/25 17:52 Blood Pressure Position Semi-Fowlers 03/05/25 17:52 Blood Pressure Location Right Arm 03/05/25 17:52 Pulse Ox 96 03/05/25 17:52 Oxygen Delivery Method Room Air 03/05/25 17:52 I&O: I&O Last 24 Hours 03/04/25 03/05/25 03/05/25 23:59 11:59 23:59 Intake Total 100 / 400 800 / 1250 450 / 1250 Balance 100 / 400 800 / 1250 450 / 1250 I&O: Total Stay 03/04/25 12:46 thru 03/05/25 18:00 Intake Total 1350 Balance 1350 Current Meds Ordered / Administered: Current meds ordered / Administered Generic Name Dose Route Start Last Admin Trade Name Freq PRN Reason Stop Dose Admin Albuterol Sulfate 2.5 mg 03/04/25 18:34 Albuterol 2.5 Mg/3 Ml Vial.Neb. INHALATION Q4H PRN shortness of breath or wheezing Albuterol/Ipratropium 3 ml 03/04/25 22:00 03/05/25 13:16 Ipratropium/Albuterol Sulfate 3 Ml Ampul.Neb INHALATION 3 ml TID AMMY Administration Apixaban 2.5 mg 03/04/25 22:00 03/05/25 09:21 Apixaban 2.5 Mg Tablet ([facility]) PO 2.5 mg BID AMMY Administration Atorvastatin Calcium 40 mg 03/05/25 10:00 03/05/25 09:22 Atorvastatin Calcium 40 Mg Tablet PO 40 mg Q48 AMMY Administration Budesonide 0.5 mg 03/04/25 18:50 03/05/25 07:28 Budesonide Respules 0.5 Mg/2 Ml Ampul.Neb. INHALATION 0.5 mg Q12H.RT AMMY Administration Calamine/Phenol 1 applic 03/05/25 10:00 03/05/25 09:20 Menthol/Lanolin/Calamine/Znox 113 Gm Tube TOPICAL 1 applic BID AMMY Administration Protocol Carvedilol 6.25 mg 03/05/25 17:00 03/05/25 16:12 Carvedilol 6.25 Mg Tablet PO 6.25 mg BIDCM AMMY Administration Protocol Finasteride 5 mg 03/04/25 22:00 03/05/25 12:25 Finasteride 5 Mg Tablet PO Not Given DAILY [facility] Furosemide 80 mg 03/05/25 10:00 03/05/25 09:22 Furosemide 80 Mg Tablet PO 80 mg DAILY AMMY Administration Protocol Furosemide 40 mg 03/05/25 16:00 03/05/25 16:11 Furosemide 40 Mg Tablet PO 40 mg DAILY@1600 AMMY Administration Protocol Furosemide 40 mg 03/05/25 18:00 Furosemide 40 Mg/4 Ml Vial IV BIDLX AMMY Protocol Guaifenesin 5 ml 03/04/25 17:28 03/04/25 22:25 Guaifenesin Dm 10 Ml Udc PO 5 ml Q4H PRN PRN Administration Cough Hydralazine HCl 100 mg 03/04/25 22:00 03/05/25 09:20 Hydralazine 50 Mg Tablet PO 100 mg BID AMMY Administration Piperacillin Sod/Tazobactam 50 mls @ 12.5 mls/hr 03/04/25 22:00 03/05/25 16:05 Sod 3.375 gm/ Sodium Chloride IV 03/11/25 22:01 12.5 mls/hr Q8 AMMY Administration Sodium Chloride 250 mls @ 15 mls/hr 03/04/25 18:41 03/05/25 15:10 IV Infused .[id number] PRN Infusion Saline Flush Sodium Chloride 250 mls @ 15 mls/hr 03/04/25 18:41 IV .[id number] PRN Additional IVPB Infusion Insulin Glargine 22 unit 03/05/25 10:00 03/05/25 09:21 Insulin Glargine-Yfgn 100 Unit/Ml Pen SC 22 unit DAILY AMMY Administration Insulin Human Lispro 10 unit 03/05/25 08:00 03/05/25 12:25 Insulin Lispro 100 Unit/Ml Insuln.Pen SC 10 units TIDCM AMMY Administration Ipratropium [place] 1 spray 03/04/25 18:41 Ipratropium [place] 0.06% Nasal [place] NASAL BID PRN allergy symptoms Loratadine 10 mg 03/05/25 10:00 03/05/25 09:21 Loratadine 10 Mg Tablet PO 10 mg Q48 [facility] Administration Montelukast Sodium 10 mg 03/04/25 22:00 03/04/25 22:28 Montelukast 10 Mg Tablet PO 10 mg QHS [facility] Administration Nitroglycerin 0.4 mg 03/04/25 18:45 Nitroglycerin (Inpatient Use) 0.4 Mg Tab.Subl SL Q5M PRN CARDIAC/CHEST PAIN Pantoprazole Sodium 40 mg 03/05/25 10:00 03/05/25 09:22 Pantoprazole Sodium 40 Mg Tablet PO 40 mg DAILY AMMY Administration Pramipexole Dihydrochloride 1.5 mg 03/04/25 22:00 03/04/25 22:27 Pramipexole Di-Hcl 0.5 Mg Tablet PO 1.5 mg QHS [facility] Administration Ranolazine 500 mg 03/04/25 22:00 03/05/25 09:22 Ranolazine 500 Mg Tablet PO 500 mg BID [facility] Administration Sodium Chloride 10 - 40 ml 03/04/25 18:41 0.9% Saline Lock 10 Ml Syringe IV UD PRN SALINE FLUSH Tamsulosin HCl 0.4 mg 03/05/25 22:00 Tamsulosin Hcl 0.4 Mg Capsule PO QHS [facility] Lab / Micro Data 03/05/25 06:02 03/05/25 06:02 Labs: Laboratory Results - last 24 hr 03/04/25 22:35: POC Glucose 257 H 03/05/25 06:02: WBC 10.6, RBC 3.70 L, Hgb 10.8 L, Hct 33.7 L, MCV 91.1, MCH 29.2, MCHC 32.0 D, RDW Std Deviation 53.1 H, RDW Coeff of Justin 16.2 H, Plt Count 346, MPV 9.9, Immature Gran % (Auto) 0.900, Neut % (Auto) 83.6 H, Lymph % (Auto) 9.1 L, [place] % (Auto) 5.4, Eos % (Auto) 0.9, Baso % (Auto) 0.1, Absolute Neuts (auto) 8.9 H, Absolute Lymphs (auto) 0.96, Nucleated RBC % 0, PT 21.6 H, INR 1.8, Sodium 134, Potassium 4.3, Chloride 97 L, Carbon Dioxide 25.6, Anion Gap 12, BUN 66 H, Creatinine 2.50 H, Estim Creat Clear Calc 22.30 L, Est GFR (MDRD) Non-Af 24 L, BUN/Creatinine Ratio 26.5 H, Glucose 109 H, Calcium 9.1, Phosphorus 3.5, Magnesium 2.1, Total Bilirubin 0.58, Direct Bilirubin 0.34 H, AST 20, ALT 12, Alkaline Phosphatase 69, Total Protein 6.6, Albumin 3.2 L, Globulin 3.4, Albumin/Globulin Ratio 0.9, TSH 1.620 03/05/25 09:18: POC Glucose 139 H 03/05/25 12:05: POC Glucose 223 H 03/05/25 15:47: Troponin T High Sens 63 H* 03/05/25 17:36: POC Glucose 135 H Micro: Microbiology 03/04/25 20:10 Sputum, Expectorated/Coughed Gram Stain - Final Assessment and Plan . Assessment and plan: Physical Exam: Gen - NAD, elderly HEENT - MMM. Sclera anicteric Resp - Diminished, few crackles. Breathing nonlabored CV - RRR. No m/g/r Abd - Soft, NT, ND Ext - No c/c/e. Skin - No rashes? Neuro - Grossly nonfocal. Alert and oriented I have reviewed the pertinent vital sign, laboratory, and imaging data. ASSESSMENT: # Dyspnea # CHF EF 40% # COPD - prior CT with significant emphysema # Chronic Afib/flutter # NSTEMI - slight trop elevation # h/o AAA repair # CKD # HTN # MARIXA # DM # PAD # h/o tobacco use PLAN: -On RA, breathing comfortably. Monitor. Encourage IS, mobilization as tolerated -Cont IV diuresis, target negative fluid balance as tolerated -Agree with trending trop, cardiology evaluation -Obtain CT chest -Cont budesonide, duonebs. Can hold off on systemic steroids for now -On empiric abx for now, may be able to de-escalate soon. f/u sputum Cx, viral panel, procal Proph DVT/GI: Eliquis The entirety of this encounter was done via telemedicine using both audio and video. Consent was obtained.
[2025-03-05] MEDS: Furosemide 40 MG/4 ML Vial IV (18:19)
[2025-03-05] MEDS: 0.9% Saline Lock 10 ML Syringe IV ×2 (18:19→19:00)
[2025-03-05 19:13] LABS: Troponin T High Sens 2 HR 59 ng/L (<=22)
[2025-03-05 20:23] LABS: Bedside Glucose 59 mg/dL (74-106)
[2025-03-05 21:07] LABS: Troponin T High Sens 4 HR 59 ng/L (<=22)
[2025-03-05 21:34] LABS: Bedside Glucose 78 mg/dL (74-106)
[2025-03-05] MEDS: Montelukast 10 MG Tablet PO (21:41)
[2025-03-05] MEDS: Pramipexole Di-HCl 0.5 MG Tablet 1.5 MG PO (21:41)
[2025-03-05] MEDS: Tamsulosin HCl 0.4 MG Capsule PO (21:43)
--- NOTE | 2025-03-05 22:06 | CPS ---
PT BROUGHT OWN BIPAP/CPAP WITH HIM. RT SET UP MACHINE WITH DISTILLED WATER. READY FOR PT USE, PT ON RA
[2025-03-05] MEDS: Acetaminophen 325 MG Tablet 650 MG PO (22:59)
[2025-03-05 23:21] LABS: Bedside Glucose 174 mg/dL (74-106)
[2025-03-06] VITALS (10 sets, daily range): BP systolic 122–142; BP diastolic 58–80; PULSE 67–85; RESP 16–23; TEMP 36.3–36.6; O2SAT 93–96
[2025-03-06 05:18] LABS: Absolute Lymphocyte Count 0.89 X10^3/uL (0.83-4.51); Absolute Neutrophil Count 5.9 X10^3/uL (2.0-7.7); Basophil# 0.02 X10^3/uL; Basophil% 0.3 % (0-1); Eosinophils% 1.3 % (0-5); Hematocrit 27.9 % (40-54); Hemoglobin 10.7 g/dL (13.0-16.5); Lymphocyte # 0.89 X10^3/ul (0.83-4.51); Lymphocyte % 11.9 % (19-41); Mean Corp Hgb Conc 38.4 g/dL (32-36); Mean Corpuscular Hgb 37.4 pg (27.0-32.0); Mean Corpuscular Volume 97.6 fL (80-94); Mean Platelet Vol. 10.1 fl (6.2-12.0); Monocyte# 0.52 X10^3/uL; NRBC Flagged by Analyzer 0 % (0-5); Neutrophil # 5.86 X10^3/uL (2.7-7.7); Neutrophil % 78.7 % (47-70); POSITIVE COUNT YES; Platelet Count 310 K/mm3 (150-450); RBC Distribution Width CV 17.5 % (11.6-14.6); RBC Distribution Width SD 55.1 fl (35.1-43.9); Red Blood Count 2.86 M/mm3 (4.6-6.2); White Blood Count 7.5 K/mm3 (4.4-11.0)
[2025-03-06 06:00] LABS: Anion Gap 13 (5-15); BUN 61 mg/dL (4-19); BUN/Creat Ratio 24.1 RATIO (10-20); Calcium,Total 9.1 mg/dL (7.6-11.0); Carbon Dioxide 25.6 mmol/L (21.0-32.0); Chloride 97 mmol/L (98-108); Creatinine, Serum 2.53 mg/dL (0.70-1.20); EST Glomerular Filtration Rate 24 (>60); Estimated Creatinine Clearance 22.04 ml/min (50-250); Glucose 194 mg/dL (70-99); Potassium 3.8 mmol/L (3.3-5.1); Procalcitonin 0.29 ng/mL (<=0.10); Sodium Level 135 mmol/L (133-145)
[2025-03-06] MEDS: Piperacil/Tazobactam 3.375 GM in 0.9% Normal Saline (50mL MB+) 50 ML IV ×2 (06:07→17:20)
[2025-03-06] MEDS: Budesonide Respules 0.5 MG/2 ML AMPUL.NEB. INHALATION ×2 (06:46→19:23)
[2025-03-06] MEDS: Ipratropium/Albuterol Sulfate 3 ML AMPUL.NEB INHALATION ×3 (06:48→19:23)
[2025-03-06 08:04] LABS: Magnesium 2.1 mg/dL (1.5-2.2); Phosphorus 3.8 mg/dL (2.7-4.5)
[2025-03-06] MEDS: Menthol/Lanolin/Calamine/Znox 113 GM Tube 1 APPLIC TOPICAL ×2 (08:20→21:07)
[2025-03-06] MEDS: hydrALAZINE 50 MG Tablet 100 MG PO ×2 (08:20→21:07)
[2025-03-06] MEDS: Carvedilol 6.25 MG Tablet PO ×2 (08:20→17:07)
[2025-03-06] MEDS: Finasteride 5 MG Tablet PO (08:21)
[2025-03-06] MEDS: APIXABAN 2.5 MG TABLET (WCH) PO ×2 (08:21→21:06)
[2025-03-06] MEDS: Pantoprazole Sodium 40 MG Tablet PO (08:21)
[2025-03-06] MEDS: Ranolazine 500 MG Tablet PO ×2 (08:22→21:07)
[2025-03-06] MEDS: Furosemide 40 MG/4 ML Vial IV ×2 (08:31→17:15)
--- NOTE | 2025-03-06 10:55 | PN.HOSP_ITS ---
Reason for Visit Reason for Visit: Diagnoses Chronic obstructive pulmonary disease with (acute) exacerbation (03/04/25) Acute cough (03/04/25) Other forms of dyspnea (03/04/25) Hypoxemia (03/04/25) Objective Data Objective Data Vital Signs: Vital Signs Temp Pulse Resp BP Pulse Ox O2 Del Method 97.4 F L 85 16 124/80 H 96 Room Air 03/06/25 08:45 03/06/25 08:45 03/06/25 08:45 03/06/25 08:45 03/06/25 08:45 03/06/25 08:45 Oxygen Delivery Method Room Air Weight: 191 lb 4.8 oz Body Mass Index (BMI) 29.0 Intake & Output: Intake and Output for Last 24 Hours 03/04/25 03/05/25 03/06/25 23:59 23:59 23:59 Intake Total 100 / 400 1300 / 1300 100 / 100 Output Total 550 / 550 450 / 450 Balance 100 / 400 750 / 750 -350 / -350 Lab / Micro Data 03/06/25 04:22 03/06/25 04:22 Labs: Laboratory Results - last 24 hr 03/05/25 12:05: POC Glucose 223 H 03/05/25 15:47: Troponin T High Sens 63 H* 03/05/25 17:36: POC Glucose 135 H 03/05/25 17:59: Troponin T Hi Sens 2 Hr 59 H* 03/05/25 19:58: POC Glucose 59 L 03/05/25 20:32: Troponin T Hi Sens 4Hr 59 H* 03/05/25 21:13: POC Glucose 78 03/05/25 23:01: POC Glucose 174 H 03/06/25 04:22: WBC 7.5, RBC 2.86 L, Hgb 10.7 L, Hct 27.9 L, MCV 97.6 H D, MCH 37.4 H, MCHC 38.4 H D, RDW Std Deviation 55.1 H, RDW Coeff of Justin 17.5 H, Plt Count 310, MPV 10.1, Immature Gran % (Auto) 0.800, Neut % (Auto) 78.7 H, Lymph % (Auto) 11.9 L, [place] % (Auto) 7.0, Eos % (Auto) 1.3, Baso % (Auto) 0.3, Absolute Neuts (auto) 5.9, Absolute Lymphs (auto) 0.89, Nucleated RBC % 0, Sodium 135, Potassium 3.8, Chloride 97 L, Carbon Dioxide 25.6, Anion Gap 13, BUN 61 H, C reatinine 2.53 H, Estim Creat Clear Calc 22.04 L, Est GFR (MDRD) Non-Af 24 L, B UN/Creatinine Ratio 24.1 H, Glucose 194 H, Calcium 9.1, Phosphorus 3.8, Magnesium 2.1, Procalcitonin 0.29 H Micro: Microbiology 03/05/25 19:15 Mucosa - Nose SARS-CoV-2, Influenza & RSV (PCR) - Final 03/04/25 20:10 Sputum, Expectorated/Coughed Gram Stain - Final Radiography Diagnostic Testing: Radiology Impression Chest CT 03/05/25 18:08 IMPRESSION: Bibasilar consolidations, left more than right, which may reflect aspiration, early stages of pneumonia, and/or atelectasis. Scattered tree-in-bud and reticular densities may reflect atypical pneumonia/postinflammatory changes with likely component of fibrosis/underlying chronic lung disease. Extensive pulmonary emphysema. Mild cardiomegaly and trace pericardial effusion. Mediastinal lymphadenopathy. Reading Location: [facility] Physical Exam Narrative Seen and examined. Patient and his complain of tremor in whole body mainly hand and restlessness/restless leg syndrome for last 3 to 4 months. Patient also has gait instability. History of COPD admitted for pneumonia and shortness of breath. He also has heart failure with reduced EF and elevated troponin. Physical exam General: Alert, Oriented x3, Cooperative HEENT: Atraumatic, PERRLA, EOMI, Normocephalic. Oral: No Gingival or Mucosal Lesions/ Ulcerations Neck: Supple, No JVD, Negative Carotid Bruits Chest wall/Lungs: Air entry diminished in bilateral lung bases, left more than right. Mild coarse crepitation Cardiovascular: Regular rate and rhythm, Normal S1,S2, sytolic murmur present. Abdomen: Bowel Sounds Present, Soft, Non Tender, Non-Distended : No dysuria. No renal angle tenderness. No suprapubic tenderness. Extremities: Mild 2+ edema, Capillary Refill Less than 3 Seconds Skin: No rashes, No breakdown Musculoskeletal: No Tenderness to Palpation of Joints or Extremities Neurological: Cranial nerves II-XII grossly intact, DTR 2+/4. No acute focal neurological deficit. Psych/Mental Status: Flat affect Assessment & Plan Assessment/Plan (1) Hypoxemia: (2) COPD exacerbation: (3) Acute cough: PLAN: Plan 89-year-old gentleman admitted with shortness of breath, mild leg swelling and chest x-ray and CT findings suggestive of pneumonia, pulmonary venous congestion. #Hypoxia due to COPD exacerbation and possible bibasilar pneumonia and acute on chronic exacerbation of HFrEF * admitted with a complaint of shortness of breath. He was recently admitted and treated for acute decompensated herat failure. * he is currently on room air. * Chest CT shows bibasilar consolidation left more than right which might reflect early stage of pneumonia/atelectasis or possible aspiration. Scattered tree-in-bud and reticular densities suggestive of atypical pneumonia/postinflammatory changes/underlying chronic lung disease. Extensive pulmonary emphysema. On IV zosyn. Previous sputum cultures grew Citrobactere, Enterobacter and Raoultella sensitive to zosyn. These cultures were from 02/19/2025. * Chest x-ray with this admission showed findings suggestive of chronic interstitial fibrosis and did not show any evidence of pneumonia. * breathing treatment with bronchodilators * titrate oxygen to maintain sats >90% * Initial troponin was 61. Troponins 63, 59 and 59. proBNP 4021. During his most recent admission his troponins peaked at 271. * 2D echo done on 02/15/2025 showed moderate concentric left ventricular hypertrophy with left ventricular EF of 40% and bouts of moderate hypokinesis of the left ventricle with left atrium severely enlarged and right atrium mildly enlarged. It does not appear that cardiology saw him during that admission despite his elevated troponins and decreased EF 03/06: Methods Time Analyst consulted. #Acute exacerbation of heart failure with reduced ejection fraction * 2D echo as above. Has known EF of 40%. Will hold all Lasix and start diuresis with IV Lasix. * Consult cardiology as stated above on account of the echo findings. * fluid restriction to 1500cc daily * pro BNP is elevated at >4000 #CKD III: Cr is 2.5, at her baseline. 03/06: BUN/creatinine 61/2.53 on baseline #CAD: on SL nitroglycerin prn. 2D echo as above. Consult cardiology. He has a history of CAD s/p stent in hal RCA. #COPD: not in exacerbation. Breathing treatment with bronchodilators. #Afib: on carvedilol and eliquis #Type 2 diabetes mellitus: on lantus. ISS. Accuchecks ACHS 03/06: Patient had hypoglycemia yesterday evening, 59, 78 but yesterday night and morning was good. said that patient used to get Lantus at night therefore changed to the suppertime and dose decreased. #History of restless leg syndrome: on ropinirole. DVT prophylaxis: on eliquis at the concern of tremors, possible differential include essential tremor/action tremor/Parkinson disease. Does not look like resting tremor. Patient does not have asymmetric muscle rigidity. Disposition: transfer to PCU Charges/Coding Visit Charges Inpatient E&M: 95318 Subs Hosp L2
[2025-03-06 12:01] LABS: Bedside Glucose 154 mg/dL (74-106)
[2025-03-06] MEDS: Acetaminophen 325 MG Tablet 650 MG PO ×2 (12:06→21:05)
[2025-03-06] MEDS: Insulin Lispro 100 UNIT/ML INSULN.PEN 10 UNIT SC (12:11)
[2025-03-06 12:14] LABS: Bedside Glucose 195 mg/dL (74-106)
--- NOTE | 2025-03-06 12:59 | PCM.PN.TICU ---
Objective Data Objective Data Vital Signs: Vital Signs Last response Temperature 36.3 C L 03/06/25 08:45 Temperature Source Oral 03/06/25 08:45 Pulse Rate 85 03/06/25 08:45 Pulse Strength Normal (2+) 03/06/25 10:00 Respiratory Rate 16 03/06/25 08:45 Respiratory Effort Normal, Non-Labored 03/06/25 08:30 Respiratory Depth Normal 03/06/25 08:30 Respiratory Pattern Normal 03/06/25 08:30 Blood Pressure 124/80 H 03/06/25 08:45 Blood Pressure Mean 94 03/06/25 08:45 Blood Pressure Source Monitor 03/06/25 08:45 Blood Pressure Position Sitting 03/06/25 08:45 Blood Pressure Location Right Arm 03/06/25 08:45 Pulse Ox 96 03/06/25 08:45 Oxygen Delivery Method Room Air 03/06/25 08:45 I&O: I&O Last 24 Hours 03/05/25 03/06/25 03/06/25 23:59 11:59 23:59 Intake Total 500 / 1300 100 / 100 Output Total 550 / 550 450 / 450 Balance -50 / 750 -350 / -350 I&O: Total Stay 03/04/25 12:46 thru 03/06/25 10:33 Intake Total 1500 Output Total 1000 Balance 500 Current Meds Ordered / Administered: Current meds ordered / Administered Generic Name Dose Route Start Last Admin Trade Name Freq PRN Reason Stop Dose Admin Acetaminophen 650 mg 03/05/25 22:46 03/06/25 12:06 Acetaminophen 325 Mg Tablet PO 650 mg Q6H PRN PRN Administration Pain 1-10 or Fever Albuterol Sulfate 2.5 mg 03/04/25 18:34 Albuterol 2.5 Mg/3 Ml Vial.Neb. INHALATION Q4H PRN shortness of breath or wheezing Albuterol/Ipratropium 3 ml 03/04/25 22:00 03/06/25 06:48 Ipratropium/Albuterol Sulfate 3 Ml Ampul.Neb INHALATION 3 ml TID AMMY Administration Apixaban 2.5 mg 03/04/25 22:00 03/06/25 08:21 Apixaban 2.5 Mg Tablet (Wch) PO 2.5 mg BID AMMY Administration Atorvastatin Calcium 40 mg 03/05/25 10:00 03/05/25 09:22 Atorvastatin Calcium 40 Mg Tablet PO 40 mg Q48 AMMY Administration Budesonide 0.5 mg 03/04/25 18:50 03/06/25 06:46 Budesonide Respules 0.5 Mg/2 Ml Ampul.Neb. INHALATION 0.5 mg Q12H.RT AMMY Administration Calamine/Phenol 1 applic 03/05/25 10:00 03/06/25 08:20 Menthol/Lanolin/Calamine/Znox 113 Gm Tube TOPICAL 1 applic BID AMMY Administration Protocol Carvedilol 6.25 mg 03/05/25 17:00 03/06/25 08:20 Carvedilol 6.25 Mg Tablet PO 6.25 mg BIDCM AMMY Administration Protocol Finasteride 5 mg 03/04/25 22:00 03/06/25 08:21 Finasteride 5 Mg Tablet PO 5 mg DAILY AMMY Administration Furosemide 80 mg 03/05/25 10:00 03/05/25 09:22 Furosemide 80 Mg Tablet PO 80 mg DAILY AMMY Administration Protocol Furosemide 40 mg 03/05/25 16:00 03/05/25 16:11 Furosemide 40 Mg Tablet PO 40 mg DAILY@1600 AMMY Administration Protocol Furosemide 40 mg 03/05/25 18:00 03/06/25 08:31 Furosemide 40 Mg/4 Ml Vial IV 40 mg BIDLX AMMY Administration Protocol Guaifenesin 5 ml 03/04/25 17:28 03/04/25 22:25 Guaifenesin Dm 10 Ml Udc PO 5 ml Q4H PRN PRN Administration Cough Hydralazine HCl 100 mg 03/04/25 22:00 03/06/25 08:20 Hydralazine 50 Mg Tablet PO 100 mg BID AMMY Administration Piperacillin Sod/Tazobactam 50 mls @ 12.5 mls/hr 03/04/25 22:00 03/06/25 10:33 Sod 3.375 gm/ Sodium Chloride IV 03/11/25 22:01 Infused Q8 AMMY Infusion Sodium Chloride 250 mls @ 15 mls/hr 03/04/25 18:41 03/05/25 15:10 IV Infused .[id number] PRN Infusion Saline Flush Sodium Chloride 250 mls @ 15 mls/hr 03/04/25 18:41 IV .[id number] PRN Additional IVPB Infusion Insulin Glargine 22 unit 03/05/25 10:00 03/05/25 09:21 Insulin Glargine-Yfgn 100 Unit/Ml Pen SC 22 unit DAILY AMMY Administration Insulin Human Lispro 10 unit 03/05/25 08:00 03/06/25 12:11 Insulin Lispro 100 Unit/Ml Insuln.Pen SC 10 units TIDCM AMMY Administration Ipratropium [place] 1 spray 03/04/25 18:41 Ipratropium [place] 0.06% Nasal [place] NASAL BID PRN allergy symptoms Loratadine 10 mg 03/05/25 10:00 03/05/25 09:21 Loratadine 10 Mg Tablet PO 10 mg Q48 AMMY Administration Montelukast Sodium 10 mg 03/04/25 22:00 03/05/25 21:41 Montelukast 10 Mg Tablet PO 10 mg QHS AMMY Administration Nitroglycerin 0.4 mg 03/04/25 18:45 Nitroglycerin (Inpatient Use) 0.4 Mg Tab.Subl SL Q5M PRN CARDIAC/CHEST PAIN Pantoprazole Sodium 40 mg 03/05/25 10:00 03/06/25 08:21 Pantoprazole Sodium 40 Mg Tablet PO 40 mg DAILY AMMY Administration Pramipexole Dihydrochloride 1.5 mg 03/04/25 22:00 03/05/25 21:41 Pramipexole Di-Hcl 0.5 Mg Tablet PO 1.5 mg QHS AMMY Administration Ranolazine 500 mg 03/04/25 22:00 03/06/25 08:22 Ranolazine 500 Mg Tablet PO 500 mg BID AMMY Administration Sodium Chloride 10 - 40 ml 03/04/25 18:41 03/05/25 19:00 0.9% Saline [place] 10 Ml Syringe IV 20 ml UD PRN Administration SALINE FLUSH Tamsulosin HCl 0.4 mg 03/05/25 22:00 03/05/25 21:43 Tamsulosin Hcl 0.4 Mg Capsule PO 0.4 mg QHS AMMY Administration Lab / Micro Data 03/06/25 04:22 03/06/25 04:22 Labs: Laboratory Results - last 24 hr 03/05/25 15:47: Troponin T High Sens 63 H* 03/05/25 17:36: POC Glucose 135 H 03/05/25 17:59: Troponin T Hi Sens 2 Hr 59 H* 03/05/25 19:58: POC Glucose 59 L 03/05/25 20:32: Troponin T Hi Sens 4Hr 59 H* 03/05/25 21:13: POC Glucose 78 03/05/25 23:01: POC Glucose 174 H 03/06/25 04:22: WBC 7.5, RBC 2.86 L, Hgb 10.7 L, Hct 27.9 L, MCV 97.6 H D, MCH 37.4 H, MCHC 38.4 H D, RDW Std Deviation 55.1 H, RDW Coeff of Justin 17.5 H, Plt Count 310, MPV 10.1, Immature Gran % (Auto) 0.800, Neut % (Auto) 78.7 H, Lymph % (Auto) 11.9 L, [place] % (Auto) 7.0, Eos % (Auto) 1.3, Baso % (Auto) 0.3, Absolute Neuts (auto) 5.9, Absolute Lymphs (auto) 0.89, Nucleated RBC % 0, Sodium 135, Potassium 3.8, Chloride 97 L, Carbon Dioxide 25.6, Anion Gap 13, BUN 61 H, Creatinine 2.53 H, Estim Creat Clear Calc 22.04 L, Est GFR (MDRD) Non-Af 24 L, BUN/Creatinine Ratio 24.1 H, Glucose 194 H, Calcium 9.1, Phosphorus 3.8, Magnesium 2.1, Procalcitonin 0.29 H 03/06/25 08:15: POC Glucose 154 H 03/06/25 11:47: POC Glucose 195 H Micro: Microbiology 03/04/25 20:10 Sputum, Expectorated/Coughed Gram Stain - Final 03/04/25 20:10 Sputum, Expectorated/Coughed Respiratory Culture - Preliminary Staphylococcus aureus 03/05/25 19:15 Mucosa - Nose SARS-CoV-2, Influenza & RSV (PCR) - Final Imaging Radiology Impression Chest CT 03/05/25 18:08 IMPRESSION: Bibasilar consolidations, left more than right, which may reflect aspiration, early stages of pneumonia, and/or atelectasis. Scattered tree-in-bud and reticular densities may reflect atypical pneumonia/postinflammatory changes with likely component of fibrosis/underlying chronic lung disease. Extensive pulmonary emphysema. Mild cardiomegaly and trace pericardial effusion. Mediastinal lymphadenopathy. Reading Location: [facility] Assessment and Plan . Assessment and plan: Subjective: No acute events o/n. Feels breathing improving. Still with some productive cough Physical Exam: Gen - NAD, elderly HEENT - MMM. Sclera anicteric Resp - Diminished, few crackles. Breathing nonlabored CV - RRR. No m/g/r Abd - Soft, NT, ND Ext - No c/c/e. Skin - No rashes? Neuro - Grossly nonfocal. Alert and oriented I have reviewed the pertinent vital sign, laboratory, and imaging data. ASSESSMENT: # Dyspnea # Staph aureus PNA # CHF EF 40% # COPD - CT with significant emphysema, minimal fibrotic change # Chronic Afib/flutter # NSTEMI - slight trop elevation # h/o AAA repair # CKD # HTN # MARIXA # DM # PAD # h/o tobacco use PLAN: -On RA, breathing comfortably. Monitor. Encourage IS, mobilization as tolerated -On empiric zosyn, add vanc given staph aureus in sputum pending speciation MSSA vs MRSA. Mild procal elevation, viral studies neg -Cont IV diuresis to maintain euvolemia. Cardiology eval pending -Cont budesonide, duonebs. Can hold off on systemic steroids for now. Add flutter valve, mucinex -Consider swallow eval Proph DVT/GI: Eliquis We will sign off given clinical improvement. Please call us back with any questions or if clinical worsening The entirety of this encounter was done via telemedicine using both audio and video. Consent was obtained.
[2025-03-06] MEDS: Vancomycin HCl 1,250 MG in 0.9% Normal Saline (250mL Bag) 250 ML 167 MG IV (14:53)
[2025-03-06] MEDS: guaiFENesin/D-Methorphan TAB.SR.12H 2 TABLET PO ×2 (14:54→21:06)
[2025-03-06] MEDS: 0.9% Saline Lock 10 ML Syringe IV (14:55)
--- NOTE | 2025-03-06 15:09 | PCM.RX.CS ---
Consult Antibiotic Management Pharmacy has been consulted to manage selected antibiotic: Vancomycin Type of Intervention Type of Consult: New start Suspected Infection Suspected Infection: Pneumonia Prior Doses of Antibiotics Prior Doses of Antibiotics Received/Current Regimen: Vancomycin 1250 mg IV x 1 given 03/06/25 @ 1453 Labs Labs: Sodium 135 mmol/L (133-145) 03/06/25 04:22 Potassium 3.8 mmol/L (3.3-5.1) 03/06/25 04:22 Chloride 97 mmol/L (98-108) L 03/06/25 04:22 Carbon Dioxide 25.6 mmol/L (21.0-32.0) 03/06/25 04:22 Anion Gap 13 (5-15) 03/06/25 04:22 BUN 61 mg/dL (4-19) H 03/06/25 04:22 Creatinine 2.53 mg/dL (0.70-1.20) H 03/06/25 04:22 Est GFR (MDRD) Non-Af 24 (>60) L 03/06/25 04:22 BUN/Creatinine Ratio 24.1 RATIO (10-20) H 03/06/25 04:22 Glucose 194 mg/dL (70-99) H 03/06/25 04:22 Microbiology Microbiology: Microbiology 03/04/25 20:10 Sputum, Expectorated/Coughed Gram Stain - Final 03/04/25 20:10 Sputum, Expectorated/Coughed Respiratory Culture - Preliminary Staphylococcus aureus 03/05/25 19:15 Mucosa - Nose SARS-CoV-2, Influenza & RSV (PCR) - Final Dosing Weight Weight used for dosin kg Estimated Creatinine Clearance Estimated Creatinine Clearance: ~ 22 Goal Trough Goal Trough: 15-20 mcg/mL Pharmacy Plan for Drug Dosing Pharmacy Plan for Drug Dosing: Vancomycin 1250 mg IV x 1 followed by 750 mg IV Q24H Pharmacy Service will continue to monitor and adjust dosing as required. Follow-Up Labs Follow-Up Labs: Trough: Vancomycin Date/Time Labs Ordered Labs to be done on [date and time ordered]: 03/08/25 @ 1430
--- NOTE | 2025-03-06 15:19 | CON.PCM.CA_ITS ---
Assessment & Plan Assessment/Plan (1) COPD exacerbation: (2) Anemia: (3) Peripheral edema: (4) Chronic kidney disease: (5) Acute on chronic systolic heart failure due to valvular disease: PLAN: 89-year-old patient has a history of coronary artery disease with angioplasty and stenting of the RCA. As well patient had a history of abdominal aortic aneurysm, hypertension, hyperlipidemia History of COPD with obstructive sleep apnea and CKD Several previous hospitalization recently discharged from the hospital in February 15. Now presenting complaining of symptoms of cough with shortness of breath As per his symptoms was worse with coughing. Does not have any active chest pain. He does complain of very atypical right upper chest discomfort with no specific radiation. Cardiac care plan recommendations; Today I reviewed his current medication as well as his doubler operator Noted patient had underlying atrial fibrillation with controlled ventricular rate He had frequent episode of PVC with nonsustained V. tach. Review of her recent echocardiogram showed EF in the range of 40% with mild to moderate eccentric MR. No pericardial effusion. Patient currently on medical treatment as well he is on diuretic Lasix 40 mg twice daily. From cardiac standpoint we will continue to monitor and follow-up clinically. As well we will continue to monitor electrolytes magnesium potassium and renal function. Once stable patient to follow-up with the primary optical effects camera operator Dr. Pierre for continuation of cardiac care. HPI Consult Data Date of Consult: 03/06/25 HPI Narrative Reason for Consultation: Acute on chronic systolic heart failure/CAD/A-fib HPI Narrative: DESIREE ROSAS, is a 89 M who presents [facility] Medical History Right carotid bruit Stable angina Kidney disease GERD (gastroesophageal reflux disease) Irregular heart beat Myocardial infarct Complicated urinary tract infection Urinary tract infection Colonic mass Controlled type 2 diabetes mellitus Acute respiratory insufficiency Chronic kidney disease Chronic anemia Bilateral edema of lower extremity Urinary retention Fatigue Pleural effusion (HFpEF) heart failure with preserved ejection fraction Pneumonia Colon polyp Lightheadedness Chronic constipation Anemia Obstructive sleep apnea Coronary artery disease Gastroesophageal reflux disease Allergic rhinitis Hyperlipidemia Urinary retention Wears hearing aid Wears dentures Wears glasses Cancer History of steroid therapy Ambulates with cane Walker as ambulation aid Arthritis Kidney stone Easy bruising Back pain Injury of back History of hiatal hernia Former smoker BiPAP (biphasic positive airway pressure) dependence Asthma Hoarseness Chronic cough Leg cramps History of pain when walking History of stress test History of heart attack History of irregular heartbeat Recurrent urinary tract infection ALMEIDA (dyspnea on exertion) Chest pain Right leg swelling Patellar bursitis of right knee Asthma-COPD overlap syndrome Abdominal aortic aneurysm (AAA) Peripheral vascular disease of extremity with claudication Rectus sheath hematoma Pre-syncope Essential (primary) hypertension Restless legs syndrome Daytime hypersomnia Somatic dysfunction of pelvic region DDD (degenerative disc disease), lumbar Overweight Seasonal allergies Carotid bruit Atherosclerotic heart disease of [place] coronary artery without angina pectoris PVD (peripheral vascular disease) COPD (chronic obstructive pulmonary disease) Home Medications ?Medication ?Instructions ?Recorded ?Last Taken ?Type handicap placcard #1 ea 09/28/19 Unknown Rx coenzyme Q10 100 mg capsule (Co 100 mg PO DAILY supple ment 05/03/20 01/29/25 History Q-10) cholecalciferol (vitamin D3) 100 100 mcg PO DAILY supp lement 11/03/20 01/29/25 History mcg (4,000 unit) tablet spacer #1 ea 01/12/21 Unknown Rx lancets #180 ea 07/18/23 Unknown Rx montelukast 10 mg tablet 10 mg PO QHS Respiratory #90 tabs 05/04/24 02/18/25 Rx atorvastatin 40 mg tablet 40 mg PO QODAY cholesterol # 45 tabs 05/13/24 01/27/25 Rx tamsulosin 0.4 mg capsule 0.4 mg PO DAILY prostate 01/22/25 History finasteride 5 mg tablet 5 mg PO DAILY prostate 06/2801/28/25 History insulin aspart U-100 100 unit/mL 10 unit (0.1 mL) subc ut TID 10/07/24 01/29/25 Rx subcutaneous cartridge (Novolog diabetes #15 mL PenFill U-100 Insulin aspart) handicap placard #1 ea 10/12/24 Unknown Rx budesonide-formoterol HFA 160 2 puff inhalation BID co pd #3 ea 10/16/24 01/28/25 Rx mcg-4.5 mcg/actuation aerosol inhaler (Symbicort) pantoprazole 40 mg tablet,delayed 40 mg PO DAILY reflu x #90 tabs 11/30/24 01/29/25 Rx release apixaban 2.5 mg tablet (Eliquis) 2.5 mg PO BID atrial fibrillation 12/14/24 02/19/25 Rx #180 tabs ipratropium bromide 21 mcg (0.03 2 spray intranasal BI D PRN allergy 12/14/24 Unknown History %) nasal spray symptoms blood sugar diagnostic (OneTouch #180 ea 12/21/24 Unkn own Rx Ultra Test strips) albuterol sulfate 90 mcg/actuation 2 inh inhalation Q4 H PRN shortness 01/04/25 01/28/25 Rx aerosol inhaler (Ventolin HFA) of breath or wheezing # 18 grams hydralazine 100 mg tablet 100 mg PO BID hypertension # 180 01/26/25 02/19/25 Rx tabs ranolazine 500 mg tablet,extended 500 mg PO BID chest pain #180 tabs 01/26/25 02/19/25 Rx release,12 hr ropinirole 1 mg tablet 3 mg (3 x 1 mg) PO QHS restl ess 01/26/25 02/18/25 Rx leg #90 tabs ipratropium 0.5 mg-albuterol 3 mg 3 ml inhalation TID SOB &/OR 01/29/25 01/28/25 History (2.5 mg base)/3 mL nebulization WHEEZING soln loratadine 10 mg tablet (Allergy 10 mg PO DAILY allerg ies 01/29/25 01/28/25 History Relief (loratadine)) 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,cd reactor operator,cont #1 ea 02/01/25 Unknown Rx (FreeStyle [place] 3 [place]) 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 sensor (FreeStyle #3 ea 02/10/25 Unknown Rx Dwight 3 Plus Sensor device) insulin glargine 100 unit/mL (3 22 unit subcut DAILY d iabetes 02/15/25 Unknown History mL) subcutaneous pen (Lantus Solostar U-100 Insulin) nitroglycerin 0.4 mg sublingual 0.4 mg sublingual Q5-1 5M PRN chest 02/15/25 Unknown Rx tablet (Nitrostat) pain #25 tabs pen needle, diabetic 31 gauge x #100 ea 02/15/25 Unkno wn Rx 1/4 (Unifine Pentips) aspirin 81 mg tablet,delayed 81 mg PO BREAKFAST heart health #0 02/18/25 Unknown Rx release tabs Held on 03/04/25. Instructions: Pt TOOK MYSELF OFF OF IT ferrous sulfate 325 mg (65 mg 325 mg PO DAILY low iron #30 tabs 02/18/25 Unknown Rx iron) tablet (FeroSul) lactulose 10 gram/15 mL oral 20 g (30 mL) PO DAILY con stipation 02/18/25 Unknown Rx solution #946 mL dextromethorphan-guaifenesin 10 5 ml PO Q4H PRN PRN Co ugh #0 mL 02/22/25 Unknown Rx mg-100 mg/5 mL oral syrup furosemide 40 mg tablet 40 mg PO UD #90 tabs 5 Unknown Rx potassium chloride 10 mEq 20 meq (2 x 10 mEq) PO BIDCM 03/02/25 Unknown Rx tablet,extended release(part/cryst) supplement #60 tab s carvedilol 3.125 mg tablet 6.25 mg PO BID Heart Unknown History Allergy/AdvReac Type Severity Reaction Status Date / Time cilostazol (From Pletal) Allergy Unknown Verified 03/04/25 12:51 felodipine Allergy Hives Verified 03/04/25 12:51 levofloxacin Allergy Hives Verified 03/04/25 12:51 Sulfa (Sulfonamide Allergy Unknown Verified 03/04/25 12:51 Antibiotics) isosorbide AdvReac Intermediate low BP Verified 03/04/25 12:51 Family History Father Diabetes Cancer Prostate cancer Mother Dementia Brother Parkinsons Brother Cancer H/O vascular surgery Surgical History History of appendectomy History of surgical procedure H/O vascular surgery History of surgical procedure History of transurethral resection of prostate History of endarterectomy (07/2018) History of left heart catheterization (03/2014) History of coronary artery stent placement (02/17/08) History of vascular surgery (08/2018) History of hernia repair H/O aortic aneurysm repair (11/1998) Social History household members: spouse 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 status: 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 Smoking Status: Former smoker quit date: 08/07/08 pack-years: 2 Tobacco: How many years used: 52 Electronic Cigarette Use: not used how long ago did patient quit smokin years ago alcohol intake: current alcohol intake frequency: holidays/special occasions only details: hx of alcohol abuse substance use type: does not use caffeine: No what type of physical activity do you participate in: other details: Nustep frequency: 5-6 times per week duration: 15-30 minutes/day seatbelt use: always do you feel safe at home: Yes Physical Exam Cardio Cardio Narrative: Seen and evaluated and examined at bedside at bedside as well as nursing staff Comfortable lying in bed Alert and orientated x 3 Cardiac exam S1-S2 is irregular Chest exam mildly diminished air entry bilateral with bilateral inspiratory rales Examination lower extremity had +2 lower extremity edema. Risk Stratification Risk Stratification Applicable: No Objective Data Vital Signs: Vital Signs Temp Pulse Resp BP Pulse Ox O2 Del Method 97.6 F L 68 16 122/74 H 96 Room Air 03/06/25 15:03 03/06/25 15:03 03/06/25 15:03 03/06/25 15:03 03/06/25 15:03 03/06/25 15:03 Oxygen Delivery Method Room Air Weight: 191 lb 4.8 oz Body Mass Index (BMI) 29.0 Intake & Output: Intake and Output for Last 24 Hours 03/04/25 03/05/25 03/06/25 23:59 23:59 23:59 Intake Total 100 / 400 1300 / 1300 100 / 100 Output Total 550 / 550 450 / 450 Balance 100 / 400 750 / 750 -350 / -350 Lab / Micro Data 03/06/25 04:22 03/06/25 04:22 Labs: Laboratory Results - last 24 hr 03/05/25 15:47: Troponin T High Sens 63 H* 03/05/25 17:36: POC Glucose 135 H 03/05/25 17:59: Troponin T Hi Sens 2 Hr 59 H* 03/05/25 19:58: POC Glucose 59 L 03/05/25 20:32: Troponin T Hi Sens 4Hr 59 H* 03/05/25 21:13: POC Glucose 78 03/05/25 23:01: POC Glucose 174 H 03/06/25 04:22: WBC 7.5, RBC 2.86 L, Hgb 10.7 L, Hct 27.9 L, MCV 97.6 H D, MCH 37.4 H, MCHC 38.4 H D, RDW Std Deviation 55.1 H, RDW Coeff of [place] 17.5 H, Plt Count 310, MPV 10.1, Immature Gran % (Auto) 0.800, Neut % (Auto) 78.7 H, Lymph % (Auto) 11.9 L, [place] % (Auto) 7.0, Eos % (Auto) 1.3, Baso % (Auto) 0.3, Absolute Neuts (auto) 5.9, Absolute Lymphs (auto) 0.89, Nucleated RBC % 0, Sodium 135, Potassium 3.8, Chloride 97 L, Carbon Dioxide 25.6, Anion Gap 13, BUN 61 H, C reatinine 2.53 H, Estim Creat Clear Calc 22.04 L, Est GFR (MDRD) Non-Af 24 L, B UN/Creatinine Ratio 24.1 H, Glucose 194 H, Calcium 9.1, Phosphorus 3.8, Magnesium 2.1, Procalcitonin 0.29 H 03/06/25 08:15: POC Glucose 154 H 03/06/25 11:47: POC Glucose 195 H Micro: Microbiology 03/04/25 20:10 Sputum, Expectorated/Coughed Gram Stain - Final 03/04/25 20:10 Sputum, Expectorated/Coughed Respiratory Culture - Preliminary Staphylococcus aureus 03/05/25 19:15 Mucosa - Nose SARS-CoV-2, Influenza & RSV (PCR) - Final Cardiology Labs/Tests 03/06/25 04:22: WBC 7.5, RBC 2.86 L, Hgb 10.7 L, Hct 27.9 L, MCV 97.6 H D, MCH 37.4 H, MCHC 38.4 H D, Plt Count 310, MPV 10.1, Immature Gran % (Auto) 0.800, N eut % (Auto) 78.7 H, Lymph % (Auto) 11.9 L, [place] % (Auto) 7.0, Eos % (Auto) 1.3, Baso % (Auto) 0.3, Absolute Neuts (auto) 5.9, Nucleated RBC % 0, Sodium 135, Potassium 3.8, Chloride 97 L, Carbon Dioxide 25.6, Anion Gap 13, BUN 61 H, C reatinine 2.53 H, Est GFR (MDRD) Non-Af 24 L, BUN/Creatinine Ratio 24.1 H, G lucose 194 H, Calcium 9.1, Phosphorus 3.8, Magnesium 2.1 Rhythm: EKG: ECHO: Stress Test: Cardiac Cath: PCI: CT Surgery: Holter monitor: EPS: PPM: CXR: Chest CT Scan: Radiography Diagnostic Testing: Radiology Impression Chest CT 03/05/25 18:08 IMPRESSION: Bibasilar consolidations, left more than right, which may reflect aspiration, early stages of pneumonia, and/or atelectasis. Scattered tree-in-bud and reticular densities may reflect atypical pneumonia/postinflammatory changes with likely component of fibrosis/underlying chronic lung disease. Extensive pulmonary emphysema. Mild cardiomegaly and trace pericardial effusion. Mediastinal lymphadenopathy. Reading Location: [facility]
[2025-03-06] MEDS: Insulin Glargine-YFGN 100 UNIT/ML Pen 10 UNIT SC (17:06)
[2025-03-06 19:51] LABS: Bedside Glucose 107 mg/dL (74-106)
[2025-03-06] MEDS: Tamsulosin HCl 0.4 MG Capsule PO (21:09)
[2025-03-06] MEDS: Pramipexole Di-HCl 0.5 MG Tablet 1.5 MG PO (21:09)
[2025-03-06] MEDS: Montelukast 10 MG Tablet PO (21:09)
--- NOTE | 2025-03-06 22:08 | NURSING ---
this nurse called pharmacy d/t 1400 Zosyn starting at 1720 and finishing at 2120, asked when to start 220 Zosyn and pharmacist said to hold 2200 dose.
[2025-03-06 22:15] LABS: Bedside Glucose 173 mg/dL (74-106)
[2025-03-07] VITALS (8 sets, daily range): BP systolic 130–152; BP diastolic 60–76; PULSE 65–73; RESP 16–20; TEMP 35.6–36.5; O2SAT 91–95
[2025-03-07] MEDS: Piperacil/Tazobactam 3.375 GM in 0.9% Normal Saline (50mL MB+) 50 ML IV ×3 (05:27→21:43)
[2025-03-07] MEDS: 0.9% Saline Lock 10 ML Syringe IV ×3 (05:27→17:46)
[2025-03-07] MEDS: Ipratropium/Albuterol Sulfate 3 ML AMPUL.NEB INHALATION ×3 (06:44→19:14)
[2025-03-07] MEDS: Budesonide Respules 0.5 MG/2 ML AMPUL.NEB. INHALATION (06:44)
[2025-03-07 08:55] LABS: Bedside Glucose 141 mg/dL (74-106)
[2025-03-07] MEDS: Insulin Lispro 100 UNIT/ML INSULN.PEN SC ×2 (09:45→12:13)
[2025-03-07] MEDS: Carvedilol 6.25 MG Tablet PO ×2 (09:47→17:47)
[2025-03-07] MEDS: Menthol/Lanolin/Calamine/Znox 113 GM Tube 1 APPLIC TOPICAL (09:48)
[2025-03-07] MEDS: hydrALAZINE 50 MG Tablet 100 MG PO ×2 (09:48→23:19)
[2025-03-07] MEDS: guaiFENesin/D-Methorphan TAB.SR.12H 2 TABLET PO ×2 (09:49→23:19)
[2025-03-07] MEDS: APIXABAN 2.5 MG TABLET (WCH) PO ×2 (09:49→23:19)
[2025-03-07] MEDS: Loratadine 10 MG Tablet PO (09:49)
[2025-03-07] MEDS: Atorvastatin Calcium 40 MG Tablet PO (09:49)
[2025-03-07] MEDS: Ranolazine 500 MG Tablet PO ×2 (09:50→23:19)
[2025-03-07] MEDS: Pantoprazole Sodium 40 MG Tablet PO (09:50)
[2025-03-07] MEDS: Finasteride 5 MG Tablet PO (09:50)
[2025-03-07] MEDS: Furosemide 40 MG/4 ML Vial IV ×2 (09:55→17:46)
[2025-03-07 12:02] LABS: Bedside Glucose 188 mg/dL (74-106)
--- NOTE | 2025-03-07 12:41 | PCM.PN.CARD ---
Subjective Subjective Seen and evaluated at bedside along with the nursing staff, at bedside Sitting out in a chair comfortable no symptoms reported. Objective Data Vital Signs: Vital Signs Temp Pulse Resp BP Pulse Ox O2 Del Method 97.5 F L 65 16 130/68 H 95 Room Air 03/07/25 09:44 03/07/25 09:48 03/07/25 09:44 03/07/25 09:44 03/07/25 09:44 03/07/25 09:44 Oxygen Delivery Method Room Air Weight: 191 lb 4.8 oz Body Mass Index (BMI) 29.0 Intake & Output: Intake and Output for Last 24 Hours 03/05/25 03/06/25 03/07/25 23:59 23:59 23:59 Intake Total 1300 / 1300 1545 / 1545 170 / 170 Output Total 550 / 550 2600 / 2600 550 / 550 Balance 750 / 750 -1055 / -1055 -380 / -380 Lab / Micro Data 03/06/25 04:22 03/06/25 04:22 Labs: Laboratory Results - last 24 hr 03/06/25 17:04: POC Glucose 107 H 03/06/25 21:02: POC Glucose 173 H 03/07/25 08:27: POC Glucose 141 H 03/07/25 11:43: POC Glucose 188 H Micro: Microbiology 03/04/25 20:10 Sputum, Expectorated/Coughed Gram Stain - Final 03/04/25 20:10 Sputum, Expectorated/Coughed Respiratory Culture - Preliminary Staphylococcus aureus 03/04/25 15:40 Blood Culture (Wb) - Right Forearm Blood Culture - Preliminary No growth in 48 hours. 03/04/25 13:46 Blood Culture (Wb) - Right Forearm Blood Culture - Preliminary No growth in 48 hours. Cardiology Labs/Tests Rhythm: EKG: ECHO: Stress Test: Cardiac Cath: PCI: CT Surgery: Holter monitor: EPS: PPM: CXR: Chest CT Scan: Physical Exam Cardio Cardio Narrative: Review of the cardiac telemetry showed A-fib with controlled rate Episodes of frequent PVCs noted Cardiac exam S1-S2 is, irregular No systolic or diastolic murmur. Chest exam mildly diminished air entry bilateral with bilateral inspiratory rales Examination lower extremity had +1?+2 lower extremity edema. Assessment & Plan Assessment/Plan (1) Acute on chronic systolic heart failure due to valvular disease: (2) Hypoxemia: (3) Exertional dyspnea: (4) COPD exacerbation: (5) Acute kidney injury: (6) History of COPD: (7) Chronic kidney disease: (8) History of diabetes mellitus: (9) Peripheral edema: PLAN: 89-year-old patient seen and evaluated today at bedside along with the nursing staff at bedside Patient had history of CAD with angioplasty and stenting of RCA. As well had a history of abdominal aortic aneurysm, hypertension hyperlipidemia, COPD with acute exacerbation and MARIXA and CKD. He had several previous hospitalization recently discharged from the hospital in February 15 where he had an echocardiogram showed reduced LV systolic function from previous With ejection fraction around 40% with mild to moderate eccentric MR. As per his symptom was mainly cough with shortness of breath and has bilateral lower extremity edema Cardiac care plan recommendations; Patient shortness of breath and cough improved on the current treatment As well his lower extremity edema improved on a diuretic. I did review all his current medication I requested echocardiogram to compare with the previous one on this admission Patient will follow-up with his primary hand alterations tailor Dr. Pierre for continuation of cardiac care. Recommend to monitor electrolytes and renal function. And adjust medication based on his lab results. There is no plan for any invasive cardiac evaluation.
--- NOTE | 2025-03-07 13:40 | PN.HOSP_ITS ---
Reason for Visit Reason for Visit: Diagnoses Anemia, unspecified (03/04/25) Endocarditis, valve unspecified (03/04/25) Acute on chronic systolic (congestive) heart failure (03/04/25) Chronic obstructive pulmonary disease with (acute) exacerbation (03/04/25) Acute kidney failure, unspecified (03/04/25) Chronic kidney disease, unspecified (03/04/25) Acute cough (03/04/25) Other forms of dyspnea (03/04/25) Hypoxemia (03/04/25) Localized edema (03/04/25) Personal history of other endocrine, nutritional and metabolic disease (03/04/25) Personal history of other diseases of the respiratory system (03/04/25) Objective Data Objective Data Vital Signs: Vital Signs Temp Pulse Resp BP Pulse Ox O2 Del Method 97.5 F L 72 16 130/68 H 95 Room Air 03/07/25 09:44 03/07/25 13:33 03/07/25 13:33 03/07/25 09:44 03/07/25 09:44 03/07/25 09:44 Oxygen Delivery Method Room Air Weight: 191 lb 4.8 oz Body Mass Index (BMI) 29.0 Intake & Output: Intake and Output for Last 24 Hours 03/05/25 03/06/25 03/07/25 23:59 23:59 23:59 Intake Total 1300 / 1300 1545 / 1545 170 / 170 Output Total 550 / 550 2600 / 2600 550 / 550 Balance 750 / 750 -1055 / -1055 -380 / -380 Lab / Micro Data 03/06/25 04:22 03/06/25 04:22 Labs: Laboratory Results - last 24 hr 03/06/25 17:04: POC Glucose 107 H 03/06/25 21:02: POC Glucose 173 H 03/07/25 08:27: POC Glucose 141 H 03/07/25 11:43: POC Glucose 188 H Micro: Microbiology 03/04/25 20:10 Sputum, Expectorated/Coughed Gram Stain - Final 03/04/25 20:10 Sputum, Expectorated/Coughed Respiratory Culture - Preliminary Staphylococcus aureus 03/04/25 15:40 Blood Culture (Wb) - Right Forearm Blood Culture - Preliminary No growth in 48 hours. 03/04/25 13:46 Blood Culture (Wb) - Right Forearm Blood Culture - Preliminary No growth in 48 hours. 03/05/25 19:15 Mucosa - Nose SARS-CoV-2, Influenza & RSV (PCR) - Final Physical Exam Narrative Seen and examined. Shortness of breath and leg swelling is improving. Patient still weak and fatigued. No dyspnea at rest. Physical exam General: Alert, Oriented x3, Cooperative HEENT: Atraumatic, PERRLA, EOMI, Normocephalic. Oral: No Gingival or Mucosal Lesions/ Ulcerations Neck: Supple, No JVD, Negative Carotid Bruits Chest wall/Lungs: Air entry diminished in bilateral lung bases, left more than right. No crepitation Cardiovascular: Regular rate and rhythm, Normal S1,S2, systolic murmur present. Abdomen: Bowel Sounds Present, Soft, Non Tender, Non-Distended : No dysuria. No renal angle tenderness. No suprapubic tenderness. Extremities: Mild 1+ edema, Capillary Refill Less than 3 Seconds Skin: No rashes, No breakdown Musculoskeletal: No Tenderness to Palpation of Joints or Extremities Neurological: Cranial nerves II-XII grossly intact, DTR 2+/4. No acute focal neurological deficit. Psych/Mental Status: Flat affect Assessment & Plan Assessment/Plan (1) Hypoxemia: (2) COPD exacerbation: (3) Acute cough: PLAN: Plan 89-year-old gentleman admitted with shortness of breath, mild leg swelling and chest x-ray and CT findings suggestive of pneumonia, pulmonary venous congestion. #Hypoxia due to COPD exacerbation and possible bibasilar pneumonia and acute on chronic exacerbation of HFrEF * admitted with a complaint of shortness of breath. He was recently admitted and treated for acute decompensated herat failure. * he is currently on room air. * Chest CT shows bibasilar consolidation left more than right which might reflect early stage of pneumonia/atelectasis or possible aspiration. Scattered tree-in-bud and reticular densities suggestive of atypical pneumonia/postinflammatory changes/underlying chronic lung disease. Extensive pulmonary emphysema. On IV zosyn. Previous sputum cultures grew Citrobactere, Enterobacter and Raoultella sensitive to zosyn. These cultures were from 02/19/2025. * Chest x-ray with this admission showed findings suggestive of chronic interstitial fibrosis and did not show any evidence of pneumonia. * breathing treatment with bronchodilators * titrate oxygen to maintain sats >90% * Initial troponin was 61. Troponins 63, 59 and 59. proBNP 4021. During his most recent admission his troponins peaked at 271. * 2D echo done on 02/15/2025 showed moderate concentric left ventricular hypertrophy with left ventricular EF of 40% and bouts of moderate hypokinesis of the left ventricle with left atrium severely enlarged and right atrium mildly enlarged. It does not appear that cardiology saw him during that admission despite his elevated troponins and decreased EF 03/06: Frontend Engineer consulted. 03/07: Sputum culture shows 2+ Staph aureus, 3+ GPC, 2+ GNR. MSSA. Continue vancomycin and Zosyn. ID consult tomorrow request. #Acute exacerbation of heart failure with reduced ejection fraction * 2D echo as above. Has known EF of 40%. Will hold all Lasix and start diuresis with IV Lasix. * Consult cardiology as stated above on account of the echo findings. * fluid restriction to 1500cc daily * pro BNP is elevated at >4000 03/07 discussed with the motel front desk attendant. Requested echo to compare with the previous 1. Continue same medication #CKD III: Cr is 2.5, at her baseline. 03/06: BUN/creatinine 61/2.53 on baseline #CAD: on SL nitroglycerin prn. 2D echo as above. Consult cardiology. He has a history of CAD s/p stent in hal RCA. #COPD: not in exacerbation. Breathing treatment with bronchodilators. #Afib: on carvedilol and eliquis #Type 2 diabetes mellitus: on lantus. ISS. Accuchecks ACHS 03/06: Patient had hypoglycemia yesterday evening, 59, 78 but yesterday night and morning was good. said that patient used to get Lantus at night therefore changed to the suppertime and dose decreased. #History of restless leg syndrome: on ropinirole. Patient and his complain of tremor in whole body mainly hand and restlessness/restless leg syndrome for last 3 to 4 months. Patient also has gait instability. 03/07: Advised follow-up with the neurologist DVT prophylaxis: on eliquis Microbiology Past 72 Hours 03/04/25 20:10 Sputum, Expectorated/Coughed Gram Stain - Final 03/04/25 20:10 Sputum, Expectorated/Coughed Respiratory Culture - Preliminary Staphylococcus aureus 03/04/25 15:40 Blood Culture (Wb) - Right Forearm Blood Culture - Preliminary No growth in 48 hours. 03/04/25 13:46 Blood Culture (Wb) - Right Forearm Blood Culture - Preliminary No growth in 48 hours. 03/05/25 19:15 Mucosa - Nose SARS-CoV-2, Influenza & RSV (PCR) - Final Laboratory Results 03/06/25 17:04: POC Glucose 107 H 03/06/25 21:02: POC Glucose 173 H 03/07/25 08:27: POC Glucose 141 H 03/07/25 11:43: POC Glucose 188 H Charges/Coding Visit Charges Inpatient E&M: 00594 Subs Hosp L3
[2025-03-07] MEDS: Vancomycin HCl 750 MG in 0.9% Normal Saline (250mL Bag) 250 ML 250 MG IV (14:22)
[2025-03-07 17:34] LABS: Bedside Glucose 102 mg/dL (74-106)
[2025-03-07 18:33] LABS: Anion Gap 13 (5-15); BUN 47 mg/dL (4-19); Calcium,Total 9.4 mg/dL (7.6-11.0); Chloride 100 mmol/L (98-108); Creatinine, Serum 2.15 mg/dL (0.70-1.20); EST Glomerular Filtration Rate 29 (>60); Estimated Creatinine Clearance 25.93 ml/min (50-250); Glucose 103 mg/dL (70-99); Potassium 3.9 mmol/L (3.3-5.1); Sodium Level 138 mmol/L (133-145)
[2025-03-07] MEDS: Miconazole Nitrate Cream 1 APPLIC TOPICAL (23:18)
[2025-03-07] MEDS: Pramipexole Di-HCl 0.5 MG Tablet 1.5 MG PO (23:18)
[2025-03-07] MEDS: Tamsulosin HCl 0.4 MG Capsule PO (23:18)
[2025-03-07] MEDS: Montelukast 10 MG Tablet PO (23:19)
[2025-03-07 23:48] LABS: Bedside Glucose 180 mg/dL (74-106)
[2025-03-08] VITALS (13 sets, daily range): BP systolic 112–154; BP diastolic 59–76; PULSE 63–89; RESP 16–18; TEMP 36.1–36.7; O2SAT 91–99
[2025-03-08] MEDS: LORazepam 0.5 MG Tablet 0.25 MG PO (04:45)
[2025-03-08 04:57] LABS: Absolute Lymphocyte Count 1.15 X10^3/uL (0.83-4.51); Absolute Neutrophil Count 7.4 X10^3/uL (2.0-7.7); Basophil# 0.03 X10^3/uL; Basophil% 0.3 % (0-1); Eosinophil# 0.14 X10^3/uL; Eosinophils% 1.5 % (0-5); Hematocrit 34.2 % (40-54); Lymphocyte # 1.15 X10^3/ul (0.83-4.51); Lymphocyte % 12.2 % (19-41); Mean Corp Hgb Conc 32.2 g/dL (32-36); Mean Corpuscular Hgb 30.5 pg (27.0-32.0); Mean Corpuscular Volume 94.7 fL (80-94); Mean Platelet Vol. 10.2 fl (6.2-12.0); Monocyte# 0.59 X10^3/uL; Monocyte% 6.2 % (0-10); NRBC Flagged by Analyzer 0 % (0-5); Neutrophil # 7.44 X10^3/uL (2.7-7.7); Neutrophil % 78.7 % (47-70); Platelet Count 332 K/mm3 (150-450); RBC Distribution Width CV 16.2 % (11.6-14.6); Red Blood Count 3.61 M/mm3 (4.6-6.2); White Blood Count 9.5 K/mm3 (4.4-11.0)
[2025-03-08 05:23] LABS: Anion Gap 15 (5-15); BUN 44 mg/dL (4-19); Calcium,Total 9.4 mg/dL (7.6-11.0); Carbon Dioxide 22.9 mmol/L (21.0-32.0); Chloride 99 mmol/L (98-108); Creatinine, Serum 2.19 mg/dL (0.70-1.20); EST Glomerular Filtration Rate 28 (>60); Estimated Creatinine Clearance 25.46 ml/min (50-250); Glucose 140 mg/dL (70-99); Potassium 3.6 mmol/L (3.3-5.1); Sodium Level 137 mmol/L (133-145)
[2025-03-08] MEDS: Piperacil/Tazobactam 3.375 GM in 0.9% Normal Saline (50mL MB+) 50 ML IV ×3 (06:06→21:20)
[2025-03-08] MEDS: Budesonide Respules 0.5 MG/2 ML AMPUL.NEB. INHALATION ×2 (06:59→19:25)
[2025-03-08] MEDS: Ipratropium/Albuterol Sulfate 3 ML AMPUL.NEB INHALATION ×3 (06:59→19:25)
[2025-03-08] MEDS: Miconazole Nitrate Cream 1 APPLIC TOPICAL ×2 (09:29→21:18)
[2025-03-08] MEDS: Ranolazine 500 MG Tablet PO ×2 (09:30→21:20)
[2025-03-08] MEDS: Finasteride 5 MG Tablet PO (09:30)
[2025-03-08] MEDS: Carvedilol 6.25 MG Tablet PO ×2 (09:30→17:25)
[2025-03-08] MEDS: guaiFENesin/D-Methorphan TAB.SR.12H 2 TABLET PO ×2 (09:30→21:20)
[2025-03-08] MEDS: Pantoprazole Sodium 40 MG Tablet PO (09:30)
[2025-03-08] MEDS: APIXABAN 2.5 MG TABLET (WCH) PO ×2 (09:30→21:19)
[2025-03-08] MEDS: Insulin Lispro 100 UNIT/ML INSULN.PEN SC ×3 (09:31→17:26)
[2025-03-08] MEDS: Acetaminophen 325 MG Tablet 650 MG PO (09:36)
[2025-03-08] MEDS: hydrALAZINE 50 MG Tablet 100 MG PO ×2 (09:36→21:17)
[2025-03-08] MEDS: 0.9% Saline Lock 10 ML Syringe IV ×2 (09:36→17:25)
[2025-03-08] MEDS: Furosemide 40 MG/4 ML Vial IV ×2 (09:36→17:26)
[2025-03-08 12:24] LABS: Bedside Glucose 183 mg/dL (74-106)
--- NOTE | 2025-03-08 13:25 | PCM.CONS.GEN ---
Assessment & Plan Assessment/Plan (1) COPD exacerbation: (2) Pneumonia: PLAN: Sputum with MSSA. Recent sputum cx with citro, raoultella, and enterobacter. Feeling better. On vanc/zosyn. He requests to be seen by his pulm Dr. Painter. Will follow, thank you HPI Consult Data Date of Consult: 03/08/25 HPI Narrative Reason for Consultation: pneumonia HPI Narrative: DESIREE ROSAS, is a 89 M with COPD, presents with 1-2 weeks worsening cough with purulent sputum and dyspnea. Recent admit with parainfluenza, sputum was sent, not given abx. Sx worsened while at home, admitted now on vanc/zosyn and feeling better this AM. Full ROS performed and neg except as noted above. [facility] Medical History Chronic systolic (congestive) heart failure Unsteady gait when walking Muscle twitching Neuropathy Leukocytosis Acute bronchitis MARIXA treated with BiPAP Obesity (BMI 30.0-34.9) Elevated troponin Diastolic CHF, acute on chronic Atrial fibrillation/flutter Right carotid bruit Stable angina Kidney disease GERD (gastroesophageal reflux disease) Irregular heart beat Myocardial infarct Complicated urinary tract infection Urinary tract infection Colonic mass Controlled type 2 diabetes mellitus Acute respiratory insufficiency Chronic kidney disease Chronic anemia Bilateral edema of lower extremity Urinary retention Fatigue Pleural effusion (HFpEF) heart failure with preserved ejection fraction Pneumonia Colon polyp Lightheadedness Chronic constipation Anemia Obstructive sleep apnea Coronary artery disease Gastroesophageal reflux disease Allergic rhinitis Hyperlipidemia Urinary retention Wears hearing aid Wears dentures Wears glasses Cancer History of steroid therapy Ambulates with cane Walker as ambulation aid Arthritis Kidney stone Easy bruising Back pain Injury of back History of hiatal hernia Former smoker BiPAP (biphasic positive airway pressure) dependence Asthma Hoarseness Chronic cough Leg cramps History of pain when walking History of stress test History of heart attack History of irregular heartbeat Recurrent urinary tract infection ALMEIDA (dyspnea on exertion) Chest pain Right leg swelling Patellar bursitis of right knee Asthma-COPD overlap syndrome Abdominal aortic aneurysm (AAA) Peripheral vascular disease of extremity with claudication Rectus sheath hematoma Pre-syncope Essential (primary) hypertension Restless legs syndrome Daytime hypersomnia Somatic dysfunction of pelvic region DDD (degenerative disc disease), lumbar Overweight Seasonal allergies Carotid bruit Atherosclerotic heart disease of [place] coronary artery without angina pectoris PVD (peripheral vascular disease) COPD (chronic obstructive pulmonary disease) Home Medications ?Medication ?Instructions ?Recorded ?Last Taken ?Type handicap placcard #1 ea 09/28/19 Unknown Rx coenzyme Q10 100 mg capsule (Co 100 mg PO DAILY supplement 05/03/20 01/29/25 History Q-10) cholecalciferol (vitamin D3) 100 100 mcg PO DAILY supplement 11/03/20 01/29/25 History mcg (4,000 unit) tablet spacer #1 ea 01/12/21 Unknown Rx lancets #180 ea 07/18/23 Unknown Rx montelukast 10 mg tablet 10 mg PO QHS Respiratory #90 tabs 05/04/24 02/18/25 Rx atorvastatin 40 mg tablet 40 mg PO QODAY cholesterol #45 tabs 05/13/24 01/27/25 Rx tamsulosin 0.4 mg capsule 0.4 mg PO DAILY prostate 06/01/24 01/22/25 History finasteride 5 mg tablet 5 mg PO DAILY prostate 06/28/24 01/28/25 History insulin aspart U-100 100 unit/mL 10 unit (0.1 mL) subcut TID 10/07/24 01/29/25 Rx subcutaneous cartridge (Novolog diabetes #15 mL PenFill U-100 Insulin aspart) handicap placard #1 ea 10/12/24 Unknown Rx budesonide-formoterol HFA 160 2 puff inhalation BID copd #3 ea 10/16/24 01/28/25 Rx mcg-4.5 mcg/actuation aerosol inhaler (Symbicort) pantoprazole 40 mg tablet,delayed 40 mg PO DAILY reflux #90 tabs 11/30/24 01/29/25 Rx release apixaban 2.5 mg tablet (Eliquis) 2.5 mg PO BID atrial fibrillation 12/14/24 02/19/25 Rx #180 tabs ipratropium bromide 21 mcg (0.03 2 spray intranasal BID PRN allergy 12/14/24 Unknown History %) nasal spray symptoms blood sugar diagnostic (OneTouch #180 ea 12/21/24 Unknown Rx Ultra Test strips) albuterol sulfate 90 mcg/actuation 2 inh inhalation Q4H PRN shortness 01/04/25 01/28/25 Rx aerosol inhaler (Ventolin HFA) of breath or wheezing #18 grams hydralazine 100 mg tablet 100 mg PO BID hypertension #180 01/26/25 02/19/25 Rx tabs ranolazine 500 mg tablet,extended 500 mg PO BID chest pain #180 tabs 01/26/25 02/19/25 Rx release,12 hr ropinirole 1 mg tablet 3 mg (3 x 1 mg) PO QHS restless 01/26/25 02/18/25 Rx leg #90 tabs ipratropium 0.5 mg-albuterol 3 mg 3 ml inhalation TID SOB &/OR 01/29/25 01/28/25 History (2.5 mg base)/3 mL nebulization WHEEZING soln loratadine 10 mg tablet (Allergy 10 mg PO DAILY allergies 01/29/25 01/28/25 History Relief (loratadine)) 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,pharmaceutical assistant,cont #1 ea 02/01/25 Unknown Rx (FreeStyle [place] 3 [place]) 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 sensor (FreeStyle #3 ea 02/10/25 Unknown Rx Dwight 3 Plus Sensor device) insulin glargine 100 unit/mL (3 22 unit subcut DAILY diabetes 02/15/25 Unknown History mL) subcutaneous pen (Lantus Solostar U-100 Insulin) nitroglycerin 0.4 mg sublingual 0.4 mg sublingual Q5-15M PRN chest 02/15/25 Unknown Rx tablet (Nitrostat) pain #25 tabs pen needle, diabetic 31 gauge x #100 ea 02/15/25 Unknown Rx 1/4 (Unifine Pentips) aspirin 81 mg tablet,delayed 81 mg PO BREAKFAST heart health #0 02/18/25 Unknown Rx release tabs Held on 03/04/25. Instructions: Pt TOOK MYSELF OFF OF IT ferrous sulfate 325 mg (65 mg 325 mg PO DAILY low iron #30 tabs 02/18/25 Unknown Rx iron) tablet (FeroSul) lactulose 10 gram/15 mL oral 20 g (30 mL) PO DAILY constipation 02/18/25 Unknown Rx solution #946 mL dextromethorphan-guaifenesin 10 5 ml PO Q4H PRN PRN Cough #0 mL 02/22/25 Unknown Rx mg-100 mg/5 mL oral syrup furosemide 40 mg tablet 40 mg PO UD #90 tabs 02/22/25 Unknown Rx potassium chloride 10 mEq 20 meq (2 x 10 mEq) PO BIDCM 03/02/25 Unknown Rx tablet,extended release(part/cryst) supplement #60 tabs carvedilol 3.125 mg tablet 6.25 mg PO BID Heart 03/04/25 Unknown History Allergy/AdvReac Type Severity Reaction Status Date / Time cilostazol (From Pletal) Allergy Unknown Verified 03/04/25 12:51 felodipine Allergy Hives Verified 03/04/25 12:51 levofloxacin Allergy Hives Verified 03/04/25 12:51 Sulfa (Sulfonamide Allergy Unknown Verified 03/04/25 12:51 Antibiotics) isosorbide AdvReac Intermediate low BP Verified 03/04/25 12:51 Family History Father Diabetes Cancer Prostate cancer Mother Dementia Brother Parkinsons Brother Cancer H/O vascular surgery Surgical History History of appendectomy History of surgical procedure H/O vascular surgery History of surgical procedure History of transurethral resection of prostate History of endarterectomy (07/2018) History of left heart catheterization (03/2014) History of coronary artery stent placement (02/17/08) History of vascular surgery (08/2018) History of hernia repair H/O aortic aneurysm repair (11/1998) Social History household members: spouse 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 status: 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 Smoking Status: Former smoker quit date: 08/07/08 pack-years: 2 Tobacco: How many years used: 52 Electronic Cigarette Use: not used how long ago did patient quit smokin years ago alcohol intake: current alcohol intake frequency: holidays/special occasions only details: hx of alcohol abuse substance use type: does not use caffeine: No what type of physical activity do you participate in: other details: Nustep frequency: 5-6 times per week duration: 15-30 minutes/day seatbelt use: always do you feel safe at home: Yes Physical Exam Const alert and no apparent distress General Appearance: cooperative HEENT normocephalic and head/scalp atraumatic Eyes PERRL and EOMs intact bilaterally Neck supple and No nodes Resp Auscultation: diminished lung sounds Cardio regular rate and regular rhythm GI soft to palpation, non-tender and non-distended Extremity General Extremity: Negative for edema Skin no rashes or lesions noted Neuro CN's II-XII intact bilaterally Lab / Micro Data Attestation: I reviewed the patient's lab results. 03/08/25 04:20 03/08/25 04:20 Labs: Laboratory Results - last 24 hr 03/07/25 17:14: POC Glucose 102 03/07/25 17:23: Sodium 138, Potassium 3.9, Chloride 100, Carbon Dioxide 25.0, Anion Gap 13, BUN 47 H, Creatinine 2.15 H, Estim Creat Clear Calc 25.93 L, Est GFR (MDRD) Non-Af 29 L, BUN/Creatinine Ratio 22.0 H, Glucose 103 H, Calcium 9.4 03/07/25 23:17: POC Glucose 180 H 03/08/25 04:20: WBC 9.5, RBC 3.61 L, Hgb 11.0 L, Hct 34.2 L, MCV 94.7 H, MCH 30.5, MCHC 32.2 D, RDW Std Deviation 54.0 H, RDW Coeff of Justin 16.2 H, Plt Count 332, MPV 10.2, Immature Gran % (Auto) 1.100 H, Neut % (Auto) 78.7 H, Lymph % (Auto) 12.2 L, [place] % (Auto) 6.2, Eos % (Auto) 1.5, Baso % (Auto) 0.3, Absolute Neuts (auto) 7.4, Absolute Lymphs (auto) 1.15, Nucleated RBC % 0, Sodium 137, Potassium 3.6, Chloride 99, Carbon Dioxide 22.9, Anion Gap 15, BUN 44 H, Creatinine 2.19 H, Estim Creat Clear Calc 25.46 L, Est GFR (MDRD) Non-Af 28 L, BUN/Creatinine Ratio 20.0, Glucose 140 H, Calcium 9.4 03/08/25 11:28: POC Glucose 183 H Micro: Microbiology 03/04/25 20:10 Sputum, Expectorated/Coughed Gram Stain - Final 03/04/25 20:10 Sputum, Expectorated/Coughed Respiratory Culture - Final Staphylococcus aureus
--- NOTE | 2025-03-08 15:17 | PN_ITS ---
Subjective Subjective Patient seen and examined. His was by his bedside. He denied any cough, chest pain, shortness of breath, palpitations, nausea, vomiting or any other symptoms. REview of systems is otherwise negative. Objective Data Objective Data Vital Signs: Vital Signs Temp Pulse Resp BP Pulse Ox O2 Del Method 97.6 F L 66 17 126/70 H 98 Room Air 03/08/25 13:38 03/08/25 13:38 03/08/25 11:51 03/08/25 13:38 03/08/25 13:57 03/08/25 13:57 Oxygen Delivery Method Room Air Weight: 191 lb 4.792 oz Body Mass Index (BMI) 29.0 Intake & Output: Intake and Output for Last 24 Hours 03/06/25 03/07/25 03/08/25 23:59 23:59 23:59 Intake Total 1545 / 1545 1485 / 1485 100 / 100 Output Total 2600 / 2600 1800 / 2700 1500 / 1500 Balance -1055 / -1055 -315 / -1215 -1400 / -1400 Lab / Micro Data 03/08/25 04:20 03/08/25 04:20 Labs: Laboratory Results - last 24 hr 03/07/25 17:14: POC Glucose 102 03/07/25 17:23: Sodium 138, Potassium 3.9, Chloride 100, Carbon Dioxide 25.0, Anion Gap 13, BUN 47 H, Creatinine 2.15 H, Estim Creat Clear Calc 25.93 L, Est GFR (MDRD) Non-Af 29 L, BUN/Creatinine Ratio 22.0 H, Glucose 103 H, Calcium 9.4 03/07/25 23:17: POC Glucose 180 H 03/08/25 04:20: WBC 9.5, RBC 3.61 L, Hgb 11.0 L, Hct 34.2 L, MCV 94.7 H, MCH 30.5, MCHC 32.2 D, RDW Std Deviation 54.0 H, RDW Coeff of Justin 16.2 H, Plt Count 332, MPV 10.2, Immature Gran % (Auto) 1.100 H, Neut % (Auto) 78.7 H, Lymph % (Auto) 12.2 L, [place] % (Auto) 6.2, Eos % (Auto) 1.5, Baso % (Auto) 0.3, Absolute Neuts (auto) 7.4, Absolute Lymphs (auto) 1.15, Nucleated RBC % 0, Sodium 137, Potassium 3.6, Chloride 99, Carbon Dioxide 22.9, Anion Gap 15, BUN 44 H, C reatinine 2.19 H, Estim Creat Clear Calc 25.46 L, Est GFR (MDRD) Non-Af 28 L, BUN/Creatinine Ratio 20.0, Glucose 140 H, Calcium 9.4 03/08/25 11:28: POC Glucose 183 H Micro: Microbiology 03/04/25 20:10 Sputum, Expectorated/Coughed Gram Stain - Final 03/04/25 20:10 Sputum, Expectorated/Coughed Respiratory Culture - Final Staphylococcus aureus 03/04/25 15:40 Blood Culture (Wb) - Right Forearm Blood Culture - Preliminary No growth in 48 hours. 03/04/25 13:46 Blood Culture (Wb) - Right Forearm Blood Culture - Preliminary No growth in 48 hours. 03/05/25 19:15 Mucosa - Nose SARS-CoV-2, Influenza & RSV (PCR) - Final Physical Exam Const alert, oriented x3 and no apparent distress Constitutional Narrative: frail General Appearance: cooperative HEENT normocephalic, head/scalp atraumatic, moist oral mucous membranes and oropharynx normal Eyes EOMs intact bilaterally Neck no lymphadenopathy and supple Lymph Lymphatic: no lymphedema noted Resp Resp Narrative: mildly diminished breath sounds bibasally, no wheezes or crackles. On room air. Cardio regular rate, regular rhythm, S1 normal heart sound, S2 normal heart sound and no murmurs GI normal to inspection, nondistended, normoactive bowel sounds, soft to palpation, non-tender and non-distended Extremity normal capillary refill, no clubbing, cyanosis or edema and no calf tenderness General Extremity: no tenderness to palpation of joints or extremities Skin General Skin Exam: no breakdown Neuro no focal motor deficits Motor Exam: general weakness Psych thought process normal, cooperative and affect normal Appearance: appropriate Assessment & Plan Assessment/Plan (1) Acute on chronic systolic heart failure due to valvular disease: (2) Pneumonia: PLAN: Plan #Hypoxia due to acute on chronic heart failure, COPD exacerbation and pneumonia * on room air * on IV zosyn * 2D echo from 02/15/2025 showed moderate concentric left ventricular hypertrophy with left ventricular EF of 40% and bouts of moderate hypokinesis of the left ventricle with left atrium severely enlarged and right atrium mildly enlarged * Chest x-ray with this admission showed findings suggestive of chronic interstitial fibrosis and did not show any evidence of pneumonia. * Previous sputum cultures grew Citrobacter, Enterobacter and Raoultella sensitive to zosyn. These cultures were from 02/19/2025. * cardiology consulted due to decreased EF. Per cardiology, to get repeat 2D echo * family requesting for pulmonology consult o/a of CXR findings of chronic interstitial fibrosis. * titrate oxygen to maintain sats >90% * sputum cultures growing MSSA now * ID on board o/a of sputum culture findings. Continue IV vancomycin and zosyn. * #Acute exacerbation of heart failure with reduced EF: as above. #CKD III: Cr is 2.19 today. Baseline Cr is ~ 1.9-2. #CAD: has a history of stent in RCA. 2 echo as above. stable #History of A-fib: On Eliquis and carvedilol #Type 2 diabetes mellitus: Lantus. Insulin sliding. Accu-Cheks ACHS. #Restless leg syndrome: Ropinirole DVT prophylaxis: on eliquis. Charges/Coding Visit Charges Inpatient E&M: 14362 Subs Hosp L2
[2025-03-08] MEDS: Insulin Glargine-YFGN 100 UNIT/ML Pen 10 UNIT SC (17:26)
[2025-03-08 17:45] LABS: Bedside Glucose 180 mg/dL (74-106)
[2025-03-08] MEDS: Pramipexole Di-HCl 0.5 MG Tablet 1.5 MG PO (21:18)
[2025-03-08] MEDS: Tamsulosin HCl 0.4 MG Capsule PO (21:18)
[2025-03-08] MEDS: Montelukast 10 MG Tablet PO (21:20)
[2025-03-09] VITALS (7 sets, daily range): BP systolic 143–167; BP diastolic 69–80; PULSE 57–73; RESP 16–18; TEMP 36–37.2; O2SAT 92–99
[2025-03-09 05:45] LABS: Absolute Lymphocyte Count 1.22 X10^3/uL (0.83-4.51); Absolute Neutrophil Count 5.7 X10^3/uL (2.0-7.7); Basophil# 0.03 X10^3/uL; Basophil% 0.4 % (0-1); Eosinophil# 0.11 X10^3/uL; Eosinophils% 1.4 % (0-5); Hematocrit 31.8 % (40-54); Hemoglobin 10.6 g/dL (13.0-16.5); Lymphocyte # 1.22 X10^3/ul (0.83-4.51); Lymphocyte % 15.9 % (19-41); Mean Corp Hgb Conc 33.3 g/dL (32-36); Mean Corpuscular Hgb 31.8 pg (27.0-32.0); Mean Corpuscular Volume 95.5 fL (80-94); Monocyte# 0.51 X10^3/uL; Monocyte% 6.6 % (0-10); NRBC Flagged by Analyzer 0 % (0-5); Neutrophil # 5.74 X10^3/uL (2.7-7.7); Neutrophil % 74.7 % (47-70); Platelet Count 281 K/mm3 (150-450); RBC Distribution Width CV 16.1 % (11.6-14.6); RBC Distribution Width SD 53.9 fl (35.1-43.9); Red Blood Count 3.33 M/mm3 (4.6-6.2); White Blood Count 7.7 K/mm3 (4.4-11.0)
[2025-03-09] MEDS: Piperacil/Tazobactam 3.375 GM in 0.9% Normal Saline (50mL MB+) 50 ML IV (05:51)
[2025-03-09 06:29] LABS: Anion Gap 14 (5-15); BUN 45 mg/dL (4-19); BUN/Creat Ratio 20.2 RATIO (10-20); Calcium,Total 9.1 mg/dL (7.6-11.0); Carbon Dioxide 23.9 mmol/L (21.0-32.0); Chloride 100 mmol/L (98-108); Creatinine, Serum 2.21 mg/dL (0.70-1.20); EST Glomerular Filtration Rate 28 (>60); Estimated Creatinine Clearance 25.23 ml/min (50-250); Glucose 149 mg/dL (70-99); Potassium 3.4 mmol/L (3.3-5.1); Sodium Level 137 mmol/L (133-145)
[2025-03-09] MEDS: Budesonide Respules 0.5 MG/2 ML AMPUL.NEB. INHALATION (07:07)
[2025-03-09] MEDS: Ipratropium/Albuterol Sulfate 3 ML AMPUL.NEB INHALATION ×2 (07:07→13:12)
[2025-03-09] MEDS: Carvedilol 6.25 MG Tablet PO ×2 (07:47→16:58)
[2025-03-09 07:49] LABS: Bedside Glucose 146 mg/dL (74-106)
--- NOTE | 2025-03-09 08:38 | PN.CC_ITS ---
Assessment & Plan Assessment/Plan (1) COPD exacerbation: PLAN: Plan RECOMMENDATIONS: 1. Antibiotic treatment course per infectious diseases recommendations. 2. Continue bronchodilator therapy as ordered. 3. Continue aggressive bronchopulmonary hygiene. 4. Encourage incentive spirometer use and mobilize patient as tolerated. 5. Perform walking oximetry study prior to consideration for discharge home. 6. The patient has been scheduled for a pulmonary office follow-up visit on March 23 at 2:15 PM. IMPRESSIONS: 1. COPD with exacerbation Appears secondary to MSSA pneumonia, which is responded appropriately to antimicrobial therapy, under the discretion of infectious diseases. In the interim, the patient will be continued on bronchodilator therapy. Given his lack of wheezing on exam and the fact that he is maintaining saturations on room air, I do not see an overt indication for corticosteroids. Continue to encourage incentive spirometer use and mobilize patient as tolerated. Perform walking oximetry study prior to consideration for discharge home. Follow-up in the pulmonary medicine clinic after discharge, as noted above. 2. Obstructive sleep apnea Continue nocturnal PAP therapy per home regimen. 3. Chronic heart failure with reduced ejection fraction/chronic kidney disease/coronary artery disease/atrial fibrillation on Eliquis Complicates care, management, recovery and prognosis. Continue home medications and supportive care as noted above. This note was generated with [employer] dictation software. It may contain incorrect words, spelling, and punctuation that were not noted in checking the note before signing. Subjective Subjective The patient was seen and examined at the bedside this morning. Events from the last 24 hours have been reviewed. The patient is currently afebrile, hemodynamically stable and maintaining appropriate oxygen saturations on room air. I was asked to reevaluate this patient, per request of the family. The patient is followed in our office on a chronic basis due to a history of COPD and obstructive sleep apnea. The patient was previously under the care of Dr. Rivero, until his departure. The patient is on nocturnal BiPAP therapy along with a triple therapy maintenance medication for his COPD. He is currently on treatment for MSSA pneumonia. Objective Data Objective Data The patient's most recent lab work, culture data and imaging studies have all been personally reviewed. Vital Signs: Vital Signs Temp Pulse Resp BP Pulse Ox O2 Del Method 97.5 F L 71 16 167/69 H 97 Room Air 03/09/25 07:35 03/09/25 07:35 03/09/25 07:35 03/09/25 07:35 03/09/25 07:35 03/09/25 07:38 Oxygen Delivery Method Room Air Weight: 191 lb 4.792 oz Body Mass Index (BMI) 29.0 Intake & Output: Intake and Output for Last 24 Hours 03/07/25 03/08/25 03/09/25 23:59 23:59 23:59 Intake Total 1485 / 1485 1470 / 1470 150 / 150 Output Total 1800 / 2700 2225 / 2225 525 / 525 Balance -315 / -1215 -755 / -755 -375 / -375 Lab / Micro Data Attestation: I reviewed the patient's lab results. 03/09/25 05:07 03/09/25 05:07 Labs: Laboratory Results - last 24 hr 03/08/25 11:28: POC Glucose 183 H 03/08/25 17:17: POC Glucose 180 H 03/09/25 05:07: WBC 7.7, RBC 3.33 L, Hgb 10.6 L, Hct 31.8 L, MCV 95.5 H, MCH 31.8, MCHC 33.3, RDW Std Deviation 53.9 H, RDW Coeff of Justin 16.1 H, Plt Count 281, MPV 10.0, Immature Gran % (Auto) 1.000 H, Neut % (Auto) 74.7 H, Lymph % (Auto) 15.9 L, [place] % (Auto) 6.6, Eos % (Auto) 1.4, Baso % (Auto) 0.4, Absolute Neuts (auto) 5.7, Absolute Lymphs (auto) 1.22, Nucleated RBC % 0, Sodium 137, Potassium 3.4, Chloride 100, Carbon Dioxide 23.9, Anion Gap 14, BUN 45 H, C reatinine 2.21 H, Estim Creat Clear Calc 25.23 L, Est GFR (MDRD) Non-Af 28 L, B UN/Creatinine Ratio 20.2 H, Glucose 149 H, Calcium 9.1 03/09/25 07:31: POC Glucose 146 H Micro: Microbiology 03/04/25 20:10 Sputum, Expectorated/Coughed Gram Stain - Final 03/04/25 20:10 Sputum, Expectorated/Coughed Respiratory Culture - Final Staphylococcus aureus 03/04/25 15:40 Blood Culture (Wb) - Right Forearm Blood Culture - Preliminary No growth in 48 hours. 03/04/25 13:46 Blood Culture (Wb) - Right Forearm Blood Culture - Preliminary No growth in 48 hours. 03/05/25 19:15 Mucosa - Nose SARS-CoV-2, Influenza & RSV (PCR) - Final Physical Exam Const alert, oriented x3 and no apparent distress General Appearance: cooperative HEENT normocephalic and head/scalp atraumatic Eyes PERRL, EOMs intact bilaterally and conjunctivae normal Neck supple General: trachea midline Chest inspection of chest normal Resp normal respiratory effort Auscultation: diminished lung sounds; Negative for rales, rhonchi or wheezes Cardio regular rate and regular rhythm GI normal to inspection, nondistended, normoactive bowel sounds Extremity no clubbing, cyanosis or edema Skin no rashes or lesions noted Neuro CN's II-XII intact bilaterally, moves all extremities and no focal motor deficits Psych cooperative and affect normal Charges/Coding Visit Charges Inpatient E&M: 09852 Subs Hosp L2
[2025-03-09] MEDS: hydrALAZINE 50 MG Tablet 100 MG PO (09:29)
[2025-03-09] MEDS: Loratadine 10 MG Tablet PO (09:30)
[2025-03-09] MEDS: APIXABAN 2.5 MG TABLET (WCH) PO (09:30)
[2025-03-09] MEDS: guaiFENesin/D-Methorphan TAB.SR.12H 2 TABLET PO (09:31)
[2025-03-09] MEDS: Finasteride 5 MG Tablet PO (09:31)
[2025-03-09] MEDS: Atorvastatin Calcium 40 MG Tablet PO (09:31)
[2025-03-09] MEDS: Ranolazine 500 MG Tablet PO (09:32)
[2025-03-09] MEDS: Pantoprazole Sodium 40 MG Tablet PO (09:32)
[2025-03-09] MEDS: Miconazole Nitrate Cream 1 APPLIC TOPICAL (09:32)
--- NOTE | 2025-03-09 09:42 | PCM.PN.ID ---
Physical Exam Narrative Out of icu, off O2, breathing better, less sputum, no fever Const alert and no apparent distress General Appearance: cooperative Resp Resp Narrative: diminished, improved Cardio regular rate and regular rhythm GI soft to palpation, non-tender and non-distended Skin no rashes or lesions noted ID ID: Route of nutrition/ use of supplements: [] Nutritional Intake: [] IV Site: [] Edwards Catheter: [] Assessment & Plan Assessment/Plan (1) COPD exacerbation: (2) Pneumonia: PLAN: Sputum with MSSA. Recent sputum cx with citro, raoultella, and enterobacter. Feeling better. Will narrow to cefazolin, ok for home with 4 days keflex 500mg bid. Will follow
[2025-03-09] MEDS: Cefazolin 2 GM in 0.9% Normal Saline (100mL Bag) 100 ML IV (09:57)
[2025-03-09] MEDS: Furosemide 40 MG/4 ML Vial IV ×2 (09:57→16:59)
[2025-03-09] MEDS: Acetaminophen 325 MG Tablet 650 MG PO (10:09)
[2025-03-09] MEDS: Insulin Lispro 100 UNIT/ML INSULN.PEN SC ×2 (11:14→16:58)
[2025-03-09 11:51] LABS: Bedside Glucose 228 mg/dL (74-106)
--- NOTE | 2025-03-09 16:23 | PCM.DC ---
Discharge Instructions Diet Discharge Diet: Low fat / Low cholesterol DC O2, CPAP, BIPAP needs Home O2 Discharge instructions: No Dressing / Incision Discharge Activity: Return to Normal Activity Weight Bearing Status: Weight bearing as tolerated Dressing / Incision Call your doctor if you observe: Fever of 101 or Higher, Shortness of breath, Dizziness, Swelling in the ankles, Chest pain and Increased palpitations (irregular heartbeat) Follow Up Care Test Results: Test results from this visit will be discussed in further detail at your follow-up appointment, if applicable. Discharge Plan Admission Admit Date/Time: 03/04/25 17:31 Primary Reason for Your Visit: acute heart failure, COPD exacerbation, pneumonia Attending Provider: Tracey Orantes Primary Care Provider: Carolynn Whitman Consulting Providers: Hansel Gillis; Tracey Orantes; Romana Dudley; Natanael Christensen; Fernandez Santana Instructions Patient Instructions: Coping with Heart Failure, ED Pneumonia (Adult) Discharge Orders/Prescriptions Prescriptions: New cephalexin 500 mg capsule 500 mg PO Q8H Qty: 12 0RF Continued (DME) handicap placcard Qty: 1 0RF Rx Instructions: Lifetime: debility coenzyme Q10 [Co Q-10] 100 mg capsule 100 mg PO DAILY cholecalciferol (vitamin D3) 100 mcg (4,000 unit) tablet 100 mcg PO DAILY (DME) spacer See Rx Instructions .ROUTE .MEDSUPPLY Qty: 1 0RF Rx Instructions: As directed (DME) lancalesia [facility] [place] See Rx Instructions .Route Qty: 180 1RF Rx Instructions: twice daily tamsulosin 0.4 mg capsule 0.4 mg PO DAILY Patient Comments: PT TAKES SOMETIMES pantoprazole 40 mg tablet,delayed release (DR/EC) 40 mg PO DAILY Qty: 90 1RF (DME) FreeStyle Dwight 3 Cooks Misc See Rx Instructions .Route Qty: 1 0RF Rx Instructions: As directed finasteride 5 mg tablet 5 mg PO DAILY Patient Comments: PT TAKES AT NIGHT ipratropium bromide 21 mcg (0.03 %) spray,non-aerosol 2 spray intranasal BID PRN (Reason: allergy symptoms) Rx Instructions: administer into each nostril furosemide 40 mg Tablet 40 mg PO UD Qty: 90 0RF Rx Instructions: 2 tablets every morning, 1 tablet at 4:00 daily dextromethorphan-guaifenesin 10-100 mg/5 mL Syrup 5 ml PO Q4H PRN PRN (Reason: Cough) Qty: 0 0RF carvedilol 3.125 mg tablet 6.25 mg PO BID ipratropium-albuterol 0.5 mg-3 mg(2.5 mg base)/3 mL solution for nebulization 3 ml inhalation TID Rx Instructions: 3 mL inhaled; loratadine [Allergy Relief (loratadine)] 10 mg tablet 10 mg PO DAILY insulin glargine [Lantus Solostar U-100 Insulin] 100 unit/mL (3 mL) insulin pen 22 unit subcut DAILY aspirin 81 mg Tablet,Delayed Release (Dr/Ec) 81 mg PO BREAKFAST Qty: 0 0RF lactulose 10 gram/15 mL Solution 20 g PO DAILY Qty: 946 0RF ferrous sulfate [FeroSul] 325 mg (65 mg iron) tablet 325 mg PO DAILY Qty: 30 0RF Rx Instructions: 1 tablet daily montelukast 10 mg tablet 10 mg PO QHS Qty: 90 3RF atorvastatin 40 mg tablet 40 mg PO QODAY Qty: 45 3RF Patient Comments: PT TAKES IN EVENING, Saturday, Saturday and Saturday insulin aspart U-100 [Novolog PenFill U-100 Insulin] 100 unit/mL cartridge 10 unit subcut TID Qty: 15 1RF Rx Instructions: hold if glucose is under 130 (DME) handicap placard See Rx Instructions .ROUTE .MEDSUPPLY Qty: 1 0RF Rx Instructions: Length of time: 5 years Diganosis: Impaired physical mobility budesonide-formoterol [Symbicort] 160-4.5 mcg/actuation HFA aerosol inhaler 2 puff inhalation BID Qty: 3 3RF Rx Instructions: administer with spacer, rinse mouth after each use Eliquis 2.5 mg tablet 2.5 mg PO BID Qty: 180 4RF (DME) OneTouch Ultra Test Strip See Rx Instructions .Route Qty: 180 1RF Rx Instructions: Check three to four times a day. albuterol sulfate [Ventolin HFA] 90 mcg/actuation HFA aerosol inhaler 2 inh INHALATION Q4H PRN (Reason: shortness of breath or wheezing) Qty: 18 6RF ranolazine 500 mg tablet extended release 12 hr 500 mg PO BID Qty: 180 3RF hydralazine 100 mg tablet 100 mg PO BID Qty: 180 3RF ropinirole 1 mg tablet 3 mg PO QHS Qty: 90 11RF Rx Instructions: administer 2-3 tablets, 1-3 hours before bedtime (DME) FreeStyle Dwight 3 Plus Sensor Device See Rx Instructions .Route Qty: 3 0RF Rx Instructions: As directed (DME) pen needle, diabetic [Unifine Pentips] 31 gauge x 1/4 needle See Rx Instructions .ROUTE .COMPLEX Qty: 100 1RF Dose Instruction: use 3 TO 4 needles daily Rx Instructions: use 3 TO 4 needles daily nitroglycerin [Nitrostat] 0.4 mg tablet, sublingual 0.4 mg SUBLINGUAL Q5-15M PRN (Reason: chest pain) Qty: 25 2RF potassium chloride 10 mEq tablet,ER particles/crystals 20 meq PO BIDCM Qty: 60 0RF Referrals / Follow Up: Carolynn Whitman MD [Primary Care Provider] - Within 1 Week Luiz Painter DO [Med Staff - Active Staff] - 03/23/25 (Follow up on March at 2:15pm as scheduled) Bryant Tsang MD [Med Staff - Active Staff] - Within 2 Weeks (see for care of heart failure) Disposition Disposition (needs filled in before D/C Order can be placed): Home Health Service
--- NOTE | 2025-03-09 16:26 | PCM.DC.SUM ---
Providers Date of Admission: 03/04/25 Date of Discharge: 03/09/25 Primary Care Physician: Dr. Carolynn Whitman MD Consultations 03/04/25 17:33 Consult: Drum Drier Operator / Pulmonary Medicine Routine Consulting Provider: Guillermo Briones Reason for Consult: Shortness of breath EMERGENT Consult: No MD Notified: Yes Date Notified: 03/04/25 Time Notified: 17:33 Method of Notification: Answering Service 03/06/25 10:58 Consult: Cardiology Routine Consulting Provider: Romana Dudley Reason for Consult: chf EXACERB, troponins elevate EMERGENT Consult: No MD Notified: Yes Date Notified: 03/06/25 Time Notified: 10:58 Method of Notification: Text 03/07/25 13:44 Consult: Infectious Disease Routine Consulting Provider: Natanael Christensen Reason for Consult: MSSA Pneumonia, recurrent pneumonia EMERGENT Consult: No Notified: Yes Date Notified: 03/07/25 Time Notified: 13:44 Method of Notification: Text 03/08/25 09:37 Consult: Drum Drier Operator / Pulmonary Medicine Routine Consulting Provider: Intensivists/Pulmonary Med Reason for Consult: recurrent pneumonia, pt of Dr. Painter EMERGENT Consult: No MD Notified: Yes Date Notified: 03/08/25 Time Notified: 09:37 Method of Notification: Text Reason For Visit: INFECTION Diagnosis Discharge Diagnosis (1) COPD exacerbation: Status: Chronic Code(s): J44.1 - Chronic obstructive pulmonary disease with (acute) exacerbation (2) Pneumonia: Status: Acute Code(s): J18.9 - Pneumonia, unspecified organism Plan #Hypoxia due to acute on chronic heart failure, COPD exacerbation and pneumonia on room air on IV zosyn 2D echo from 02/15/2025 showed moderate concentric left ventricular hypertrophy with left ventricular EF of 40% and bouts of moderate hypokinesis of the left ventricle with left atrium severely enlarged and right atrium mildly enlarged Chest x-ray with this admission showed findings suggestive of chronic interstitial fibrosis and did not show any evidence of pneumonia. Previous sputum cultures grew Citrobacter, Enterobacter and Raoultella sensitive to zosyn. These cultures were from 02/19/2025. cardiology consulted due to decreased EF. Per cardiology, to get repeat 2D echo family requesting for pulmonology consult o/a of CXR findings of chronic interstitial fibrosis. titrate oxygen to maintain sats >90% sputum cultures growing MSSA now ID on board o/a of sputum culture findings. Continue IV vancomycin and zosyn. #Acute exacerbation of heart failure with reduced EF: as above. #CKD III: Cr is 2.19 today. Baseline Cr is ~ 1.9-2. #CAD: has a history of stent in RCA. 2 echo as above. stable #History of A-fib: On Eliquis and carvedilol #Type 2 diabetes mellitus: Lantus. Insulin sliding. Accu-Cheks ACHS. #Restless leg syndrome: Ropinirole DVT prophylaxis: on eliquis. Medications at Discharge Home Medications handicap placcard #1 ea 09/28/19 coenzyme Q10 100 mg capsule (Co Q-10) 100 mg PO DAILY supplement 05/03/20 cholecalciferol (vitamin D3) 100 mcg (4,000 unit) tablet 100 mcg PO DAILY supplement 11/03/20 spacer #1 ea 01/12/21 lancets #180 ea 07/18/23 montelukast 10 mg tablet 10 mg PO QHS Respiratory #90 tabs 05/04/24 atorvastatin 40 mg tablet 40 mg PO QODAY cholesterol #45 tabs 05/13/24 tamsulosin 0.4 mg capsule 0.4 mg PO DAILY prostate 06/01/24 finasteride 5 mg tablet 5 mg PO DAILY prostate 06/28/24 insulin aspart U-100 100 unit/mL subcutaneous cartridge (Novolog PenFill U-100 Insulin aspart) 10 unit (0.1 mL) subcut TID diabetes #15 mL 10/07/24 handicap placard #1 ea 10/12/24 budesonide-formoterol HFA 160 mcg-4.5 mcg/actuation aerosol inhaler (Symbicort) 2 puff inhalation BID copd #3 ea 10/16/24 pantoprazole 40 mg tablet,delayed release 40 mg PO DAILY reflux #90 tabs 11/30/24 apixaban 2.5 mg tablet (Eliquis) 2.5 mg PO BID atrial fibrillation #180 tabs 12/14/24 ipratropium bromide 21 mcg (0.03 %) nasal spray 2 spray intranasal BID PRN allergy symptoms 12/14/24 blood sugar diagnostic (NetSanity Ultra Test strips) #180 ea 12/21/24 albuterol sulfate 90 mcg/actuation aerosol inhaler (Ventolin HFA) 2 inh inhalation Q4H PRN shortness of breath or wheezing #18 grams 01/04/25 hydralazine 100 mg tablet 100 mg PO BID hypertension #180 tabs 01/26/25 ranolazine 500 mg tablet,extended release,12 hr 500 mg PO BID chest pain #180 tabs 01/26/25 ropinirole 1 mg tablet 3 mg (3 x 1 mg) PO QHS restless leg #90 tabs 01/26/25 ipratropium 0.5 mg-albuterol 3 mg (2.5 mg base)/3 mL nebulization soln 3 ml inhalation TID SOB &/OR WHEEZING 01/29/25 loratadine 10 mg tablet (Allergy Relief (loratadine)) 10 mg PO DAILY allergies 01/29/25 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,welding machine operator ultrasonic,cont (Rösler miniDaT Wdight 3 [place]) #1 ea 02/01/25 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 sensor (Shopatronyle Dwight 3 Plus Sensor device) #3 ea 02/10/25 insulin glargine 100 unit/mL (3 mL) subcutaneous pen (Lantus Solostar U-100 Insulin) 22 unit subcut DAILY diabetes 02/15/25 nitroglycerin 0.4 mg sublingual tablet (Nitrostat) 0.4 mg sublingual Q5-15M PRN chest pain #25 tabs 02/15/25 pen needle, diabetic 31 gauge x 1/4 (Unifine Pentips) #100 ea 02/15/25 aspirin 81 mg tablet,delayed release 81 mg PO BREAKFAST heart health #0 tabs 02/18/25 ferrous sulfate 325 mg (65 mg iron) tablet (FeroSul) 325 mg PO DAILY low iron #30 tabs 02/18/25 lactulose 10 gram/15 mL oral solution 20 g (30 mL) PO DAILY constipation #946 mL 02/18/25 dextromethorphan-guaifenesin 10 mg-100 mg/5 mL oral syrup 5 ml PO Q4H PRN PRN Cough #0 mL 02/22/25 furosemide 40 mg tablet 40 mg PO UD #90 tabs 02/22/25 potassium chloride 10 mEq tablet,extended release(part/cryst) 20 meq (2 x 10 mEq) PO BIDCM supplement #60 tabs 03/02/25 carvedilol 3.125 mg tablet 6.25 mg PO BID Heart 03/04/25 cephalexin 500 mg capsule 500 mg PO Q8H #12 caps 03/09/25 Hospital Course Operations None Procedures None Summary of Care Provided Minutes Spent on Discharge: 45 Hospital Course: Patient is an 89-year-old male with a past medical history as outlined including history of congestive heart failure who was admitted to the ED on 03/04/2025 with a complaint of shortness of breath and fatigue. Patient had recently been admitted on 02/18/2025 and was discharged on 02/22/2025 on account of NARENDRA due to the diuretics. She was sent home on room air. However said he had been getting more short of breath. This was his third admission over 1 month and he had been admitted earlier in February for acute decompensated heart failure and pneumonia. He had also had an associated cough productive of yellowish-greenish sputum. With this admission, he became hypoxic in the ED with a saturation dropping to 88% and so he was admitted to be managed for hypoxia concerning for pneumonia and heart failure. His previous sputum cultures done during his previous admission grew Citrobacter, Enterobacter and will tell been sensitive to Zosyn so he was started on IV Zosyn. Pulmonology was consulted. Patient was also diuresed with Lasix. His shortness of breath did improve and he was weaned down to room air. Of note his 2D echo done during a previous admission showed moderate concentric left ventricular hypertrophy with left ventricular EF of 40% and bouts of moderate hypokinesis of the left ventricle with left atrium severely enlarged and right atrium mildly enlarged. Cardiology was consulted to evaluate him on account of the change in his EF. Cardiology reviewed them and had initially requested repeat 2D echo but subsequent cabbage salter decided this was not needed. He was continued on his Lasix as needed. Infectious disease was also consulted and patient was switched to IV cefazolin. Per patient's request pulmonology was consulted. Pulmonology recommended that patient could follow-up on outpatient basis as he was on room air and his hypoxia had resolved. He had a follow-up on March 23, 2025 at 2:15 PM with pulmonology. Patient was discharged home on 03/09/2025 on p.o. Keflex for 4-day course per ID recommendation. He is to follow-up with his primary care doctor within 1 to 2 weeks and also to follow-up with pulmonology as scheduled and follow-up with cardiology on outpatient basis within 1 to 2 weeks also. Patient was seen and examined prior to discharge. Patient's was by his bedside. Patient's expressed concern about patient going home as she did not feel that she could take care of him. She was concerned that he would not be able to ambulate well. Patient however adamantly refused to go to rehab or even consider it. I did counselor education professor patient and extensively in the presence of the nurse Alex and the subsequent nurse who took over, Christine that in light of his advanced age and frailty, and also in light of patient's 's concern about being able to take care of him, it would be beneficial for patient to consider rehab for at least a few days to help to optimize her strength so that he could go back home and take better care of himself. However patient again was adamant in his refusal and so acquiesced to him going home with home health care. Patient was agreeable to having therapy on outpatient basis at [facility]. Labs and vitals reviewed. Home medication reviewed and reconciled. Physical Exam Const alert, oriented x3 and no apparent distress Constitutional Narrative: frail General Appearance: cooperative and comfortable HEENT normocephalic, head/scalp atraumatic, hearing grossly normal bilaterally, moist oral mucous membranes and oropharynx normal Mouth: oral and palatal mucosa normal Eyes PERRL, EOMs intact bilaterally and conjunctivae normal Neck no lymphadenopathy, supple and no JVD Lymph Lymphatic: no lymphedema noted Resp Resp Narrative: mildly diminished breath sounds bibasally, no wheezes or crackles. On room air. Cardio regular rate, regular rhythm, S1 normal heart sound, S2 normal heart sound and no murmurs GI normal to inspection, nondistended, normoactive bowel sounds, soft to palpation, non-tender and non-distended Extremity normal to inspection, full ROM, normal capillary refill, no clubbing, cyanosis or edema and no calf tenderness General Extremity: no tenderness to palpation of joints or extremities Skin General Skin Exam: no breakdown Neuro oriented x3 and no focal motor deficits Motor Exam: general weakness Psych thought process normal, cooperative and affect normal Appearance: appropriate Weight / BMI Weight Weight: 191 lb 4.792 oz Body Mass Index (BMI) 29.0 ABG / Lab / Microbiology Data 03/09/25 05:07 03/09/25 05:07 Laboratory: Laboratory Results - last 24 hr 03/08/25 17:17: POC Glucose 180 H 03/09/25 05:07: WBC 7.7, RBC 3.33 L, Hgb 10.6 L, Hct 31.8 L, MCV 95.5 H, MCH 31.8, MCHC 33.3, RDW Std Deviation 53.9 H, RDW Coeff of Justin 16.1 H, Plt Count 281, MPV 10.0, Immature Gran % (Auto) 1.000 H, Neut % (Auto) 74.7 H, Lymph % (Auto) 15.9 L, [place] % (Auto) 6.6, Eos % (Auto) 1.4, Baso % (Auto) 0.4, Absolute Neuts (auto) 5.7, Absolute Lymphs (auto) 1.22, Nucleated RBC % 0, Sodium 137, Potassium 3.4, Chloride 100, Carbon Dioxide 23.9, Anion Gap 14, BUN 45 H, Creatinine 2.21 H, Estim Creat Clear Calc 25.23 L, Est GFR (MDRD) Non-Af 28 L, BUN/Creatinine Ratio 20.2 H, Glucose 149 H, Calcium 9.1 03/09/25 07:31: POC Glucose 146 H 03/09/25 11:09: POC Glucose 228 H Microbiology: Microbiology 03/04/25 15:40 Blood Culture (Wb) - Right Forearm Blood Culture - Final No growth in 5 days. 03/04/25 13:46 Blood Culture (Wb) - Right Forearm Blood Culture - Final No growth in 5 days. 03/04/25 20:10 Sputum, Expectorated/Coughed Gram Stain - Final 03/04/25 20:10 Sputum, Expectorated/Coughed Respiratory Culture - Final Staphylococcus aureus 03/05/25 19:15 Mucosa - Nose SARS-CoV-2, Influenza & RSV (PCR) - Final D/C Instructions Discharge Diet: Low fat / Low cholesterol Discharge Activity: Return to Normal Activity Weight Bearing Status: Weight bearing as tolerated Call your doctor if you observe: Fever of 101 or Higher, Shortness of breath, Dizziness, Swelling in the ankles, Chest pain and Increased palpitations (irregular heartbeat) DC O2, CPAP, BIPAP Needs Home O2 Discharge instructions: No DC home with Oxygen: No Meaningful Use Info Meaningful Use Meaningful Use Diagnoses (Choose all that apply): CHF CHF SILVANO/ARB ordered at discharge?: No Reason SILVANO/ARB not ordered?: Worsening renal disease Documented LVEF (%): 49 Ischemic Stroke Statin Dosing Therapy Reference: STATIN DOSE THERAPY REFERENCE: * Patients > 75 years receive moderate or high dose statin therapy. * Patients 75 years or YOUNGER should receive HIGH intensity statin dose unless contraindicated. You will be required to document reason for non-treatment if statin daily dose does not meet guidelines. HIGH DOSE STATIN THERAPY DAILY Atorvastatin > than or = to 40 mg Rosuvastatin > than or = to 20 mg Amlodipine + Atorvastatin > than or = to 2.5/40 mg Ezetimibe + Simvastatin 10/80 mg Simvastatin 80mg Discharge Plan Admission Admit Date/Time: 03/04/25 17:31 Primary Reason for Your Visit: acute heart failure, COPD exacerbation, pneumonia Attending Provider: Tracey Orantes Primary Care Provider: Carolynn Whitman Consulting Providers: Hansel Gillis; Tracey Orantes; Romana Dudley; Natanael Christensen; Fernandez Santana Instructions Patient Instructions: Coping with Heart Failure, ED Pneumonia (Adult) Discharge Orders/Prescriptions Prescriptions: New cephalexin 500 mg capsule 500 mg PO Q8H Qty: 12 0RF Continued (DME) handicap placcard Qty: 1 0RF Rx Instructions: Lifetime: debility coenzyme Q10 [Co Q-10] 100 mg capsule 100 mg PO DAILY cholecalciferol (vitamin D3) 100 mcg (4,000 unit) tablet 100 mcg PO DAILY (DME) spacer See Rx Instructions .ROUTE .MEDSUPPLY Qty: 1 0RF Rx Instructions: [facility] .Route Qty: 180 1RF Rx Instructions: twice daily tamsulosin 0.4 mg capsule 0.4 mg PO DAILY Patient Comments: PT TAKES SOMETIMES pantoprazole 40 mg tablet,delayed release (DR/EC) 40 mg PO DAILY Qty: 90 1RF (DME) FreeStyle Dwight 3 [place] Misc See Rx Instructions .Route Qty: 1 0RF Rx Instructions: As directed finasteride 5 mg tablet 5 mg PO DAILY Patient Comments: PT TAKES AT NIGHT ipratropium bromide 21 mcg (0.03 %) spray,non-aerosol 2 spray intranasal BID PRN (Reason: allergy symptoms) Rx Instructions: administer into each nostril furosemide 40 mg Tablet 40 mg PO UD Qty: 90 0RF Rx Instructions: 2 tablets every morning, 1 tablet at 4:00 daily dextromethorphan-guaifenesin 10-100 mg/5 mL Syrup 5 ml PO Q4H PRN PRN (Reason: Cough) Qty: 0 0RF carvedilol 3.125 mg tablet 6.25 mg PO BID ipratropium-albuterol 0.5 mg-3 mg(2.5 mg base)/3 mL solution for nebulization 3 ml inhalation TID Rx Instructions: 3 mL inhaled; loratadine [Allergy Relief (loratadine)] 10 mg tablet 10 mg PO DAILY insulin glargine [Lantus Solostar U-100 Insulin] 100 unit/mL (3 mL) insulin pen 22 unit subcut DAILY aspirin 81 mg Tablet,Delayed Release (Dr/Ec) 81 mg PO BREAKFAST Qty: 0 0RF lactulose 10 gram/15 mL Solution 20 g PO DAILY Qty: 946 0RF ferrous sulfate [FeroSul] 325 mg (65 mg iron) tablet 325 mg PO DAILY Qty: 30 0RF Rx Instructions: 1 tablet daily montelukast 10 mg tablet 10 mg PO QHS Qty: 90 3RF atorvastatin 40 mg tablet 40 mg PO QODAY Qty: 45 3RF Patient Comments: PT TAKES IN EVENING, Saturday, Saturday and Saturday insulin aspart U-100 [Novolog PenFill U-100 Insulin] 100 unit/mL cartridge 10 unit subcut TID Qty: 15 1RF Rx Instructions: hold if glucose is under 130 (DME) handicap placard See Rx Instructions .ROUTE .MEDSUPPLY Qty: 1 0RF Rx Instructions: Length of time: 5 years Diganosis: Impaired physical mobility budesonide-formoterol [Symbicort] 160-4.5 mcg/actuation HFA aerosol inhaler 2 puff inhalation BID Qty: 3 3RF Rx Instructions: administer with spacer, rinse mouth after each use Eliquis 2.5 mg tablet 2.5 mg PO BID Qty: 180 4RF (DME) OneTouch Ultra Test Strip See Rx Instructions .Route Qty: 180 1RF Rx Instructions: Check three to four times a day. albuterol sulfate [Ventolin HFA] 90 mcg/actuation HFA aerosol inhaler 2 inh INHALATION Q4H PRN (Reason: shortness of breath or wheezing) Qty: 18 6RF ranolazine 500 mg tablet extended release 12 hr 500 mg PO BID Qty: 180 3RF hydralazine 100 mg tablet 100 mg PO BID Qty: 180 3RF ropinirole 1 mg tablet 3 mg PO QHS Qty: 90 11RF Rx Instructions: administer 2-3 tablets, 1-3 hours before bedtime (DME) FreeStLifeblob Dwight 3 Plus Sensor Device See Rx Instructions .Route Qty: 3 0RF Rx Instructions: As directed (DME) pen needle, diabetic [Unifine Pentips] 31 gauge x 1/4 needle See Rx Instructions .ROUTE .COMPLEX Qty: 100 1RF Dose Instruction: use 3 TO 4 needles daily Rx Instructions: use 3 TO 4 needles daily nitroglycerin [Nitrostat] 0.4 mg tablet, sublingual 0.4 mg SUBLINGUAL Q5-15M PRN (Reason: chest pain) Qty: 25 2RF potassium chloride 10 mEq tablet,ER particles/crystals 20 meq PO BIDCM Qty: 60 0RF Referrals / Follow Up: Carolynn Whitman MD [Primary Care Provider] - Within 1 Week Luiz Painter DO [Med Staff - Active Staff] - 03/23/25 (Follow up on March at 2:15pm as scheduled) Bryant Tsang MD [Med Staff - Active Staff] - Within 2 Weeks (see for care of heart failure) Disposition Disposition (needs filled in before D/C Order can be placed): Home Health Service Charges/Coding Visit Charges Inpatient E&M: 88210 Disch Hosp >30min
[2025-03-09] MEDS: Insulin Glargine-YFGN 100 UNIT/ML Pen 10 UNIT SC (16:59)
[2025-03-09 18:32] LABS: Bedside Glucose 211 mg/dL (74-106)
== END 2025-03-09 18:09 | disposition home health service (06) | DRG 291 ==
LOC: ED 15:47 → MS3 18:20 → PCU 03-05 17:48
PROVIDERS: Family Medicine; Internal Medicine; Internal Medicine Pulmonary Disease; Admitting Provider Internal Medicine; Emergency Provider Emergency Medicine; PCP Internal Medicine; Visit Provider Student in an Organized Health Care Education/Training Program
DX: I13.0 Hypertensive heart and chronic kidney disease with heart failure and stage 1 through stage 4 chronic kidney disease, or unspecified chronic kidney disease (principal); J15.211 Pneumonia due to Methicillin susceptible Staphylococcus aureus; I50.23 Acute on chronic systolic (congestive) heart failure; J44.0 Chronic obstructive pulmonary disease with (acute) lower respiratory infection; I24.89 Other forms of acute ischemic heart disease; J44.1 Chronic obstructive pulmonary disease with (acute) exacerbation; I48.20 Chronic atrial fibrillation, unspecified; D50.9 Iron deficiency anemia, unspecified; E11.22 Type 2 diabetes mellitus with diabetic chronic kidney disease; E11.40 Type 2 diabetes mellitus with diabetic neuropathy, unspecified; G25.81 Restless legs syndrome; N18.30 Chronic kidney disease, stage 3 unspecified; E11.51 Type 2 diabetes mellitus with diabetic peripheral angiopathy without gangrene; I25.10 Atherosclerotic heart disease of native coronary artery without angina pectoris; Z79.4 Long term (current) use of insulin; K21.9 Gastro-esophageal reflux disease without esophagitis; G47.33 Obstructive sleep apnea (adult) (pediatric); I25.2 Old myocardial infarction; Z79.01 Long term (current) use of anticoagulants; Z79.51 Long term (current) use of inhaled steroids; Z87.891 Personal history of nicotine dependence; Z95.5 Presence of coronary angioplasty implant and graft; Z79.899 Other long term (current) drug therapy
CPT/HCPCS: 36415; 71046; 71250; 80048; 80053; 80076; 81001; 82728; 82962; 83540; 83550; 83735; 83880; 84100; 84145; 84443; 84484; 85025; 85610; 87040; 87070; 87077; 87186; 87205; 87631; 93005; 94640; 97110; 97116; 97162; 97166; 97530; 97535; 99285; A4216; J1938

== ENCOUNTER → 2025-03-04 | Outpatient (CLI) | payer MEDICARE, SELFPAY ==
--- NOTE | 2025-03-04 11:25 | RAD_ITS ---
PROCEDURE: CHEST PA AND LATERAL 03/04/2025 REASON FOR EXAM: COUGH Chronic shortness of breath. TECHNIQUE: Frontal and lateral views of the chest. COMPARISON: Prior study dated February 19, 2025 FINDINGS: Hardware: Prior ORIF of the right clavicle. Heart: Cardiomegaly Mediastinum: Atherosclerotic calcification of the aortic arch. Lungs: Stable increased interstitial markings in both lungs worse on the right side suggestive of chronic interstitial fibrosis. Bones: Degenerative changes are identified within the thoracic spine. RAD/Chest PA and Lateral IMPRESSION: Findings suggestive of chronic interstitial fibrosis. Reading Location: [id number]
== END | disposition home or self-care (01) ==
LOC: MTRAD 11:25
PROVIDERS: PCP Internal Medicine; Referring Provider Physician Assistant Surgical; Visit Provider Physician Assistant Surgical
DX: R05.9 Cough, unspecified (principal)
CPT/HCPCS: 71046

== ENCOUNTER 2025-03-18 13:30 | Outpatient (RCR) | payer MEDICARE, SELFPAY ==
--- NOTE | 2025-02-01 16:36 | HP.PTEVAL_ITS ---
Patient's Visit Information Visit Information Visit Information: DESIREE ROSAS is a 89 year old M referred to Physical Therapy by Dr. Carolynn Whitman MD with a diagnosis of Recurrent falls. Date of Evaluation: 02/01/25 Physical Therapist: Himanshu Ramírez DPT Visit Plan Frequency: 2x /Week Duration: 6 Weeks Plan: BLE strengthening gait progression, endurance training dynamic balance. Subjective Subjective: Pt. is here today for his initial evaluation with diagnosis of recurrent falls. Pt. arrives today with use of FWW. Pt. reports having issues since having the flu ~3 months ago. He reports having 2 falls, once leaning forward and fell out of his chair and then again yesterday when he fell backwards. He reports continued and frequent shortness of breath with activity. He reports that his legs have also become weak. Pt. is hopeful to improve his strength and endurance in order to get back to all recreational and household activities without limitations. Pt. reports coming to gym and doing bike or nustep with light effort 3-4 times per week. Pt Objective Objective: POSTURE: Pt. has slouched posture in general. Pt. uses FWW to stabilize, but is able to do so without use of AD. Wide CARY in stance. PALPATION: normal NEURO: normal throughout BLEs. ROM: Pt. has tightness in B HS and calves. Lumbar ROM: mod loss throughout. MMT: RLE: ankle DF 5/5, PF 4/5; knee: ext 5-/5, flexion 5/5; hip: flexon 4/5, abd 4/5. LLE: ankl;e DF 4/5, PF 4/5; knee: ext 4/5, flexion 5-/5; hip: flexion 4/5, abd 4/5. GAIT: Pt. ambulates with FWW with methodical pattern. Decreased B step length noted. Pt. was able to ambulate without Ad as well, but much more Balance/Special Test Scores Functional Gait Assessment Score: 8 % Disability: 73.3400 Lower Extremity Functional Score: 11 TUG Test Time Seconds: 25.9 30 Second Chair Rise Test Seconds: 7 Goals Goal 1:: LTG: Pt. to be I with HEP. Goal Time Frame: 4-6 Weeks Goal 2:: LTG: pt. to complete TUG without AD under 10seconds Goal Time Frame: 4-6 Weeks Goal 3:: LTG: Pt. to completed FGA with score of 15/30 or greater indicating improved dynamic balance. Goal Time Frame: 4-6 Weeks Goal 4:: LTG: Pt. to have symmetrical LE strength. Goal Time Frame: 4-6 Weeks Goal 5:: LTG: Pt. to be able to ambulate unlimited distances without AD. Goal Time Frame: 4-6 Weeks Rehabilitation Potential Physical Therapy Diagnosis: Pt. has signs and symptoms consistent with recurrent falls. Pt. has marked endurance and balance issues. He does have some strength limitations as well especially functional strength. Rehabilitation Potential: Good Anticipated Interventions Patient/Client Instruction: Educate patient on: Condition, Plan of Care, Risk Factors and Benefits of Fitness Program For the Purpose of:: To improve self management, To prevent re-injury, To improve ability to perform tasks related to life management and To improve tolerance to ADL's Therapeutic Exercise to Include: Strength training, Power training, Endurance training, Balance training, Postural training, Flexibilty training, Gait and locomotor training and Neuromotor development For the Purpose of:: To increase ROM, To improve nutrient delivery to tissue, To increase oxygenation perfusion, To increase tolerance to activity/condition/position, To improve performance and independence with ADL's, To improve gait and locomotor functions and To improve health of tissue Text: Thank you for the opportunity to evaluate your patient. For Medicare and Medicare HMO plans, please review the plan of care and approve it. It will need to be FAXED BACK to us at [phone] for Medicare purposes. For Medicare only, by signing this I certify the plan of care. Please let me know if there are questions or concerns regarding this plan of care. Physician Signature: Date:___
== END 2025-03-18 19:00 | disposition home or self-care (01) ==
LOC: PT 13:30
PROVIDERS: PCP Internal Medicine; Visit Provider Internal Medicine
DX: R29.6 Repeated falls (principal)
CPT/HCPCS: 97110; 97161

== ENCOUNTER → 2025-04-05 | Outpatient (CLI) | payer MEDICARE, SELFPAY ==
[2025-04-05 18:46] LABS: Hematocrit 37.5 % (40-54); Hemoglobin 11.7 g/dL (13.0-16.5); Mean Corp Hgb Conc 31.2 g/dL (32-36); Mean Corpuscular Hgb 29.8 pg (27.0-32.0); Mean Corpuscular Volume 95.7 fL (80-94); Mean Platelet Vol. 10.6 fl (6.2-12.0); Platelet Count 316 K/mm3 (150-450); RBC Distribution Width CV 17.1 % (11.6-14.6); Red Blood Count 3.92 M/mm3 (4.6-6.2); White Blood Count 8.3 K/mm3 (4.4-11.0)
[2025-04-05 18:48] LABS: Anion Gap 16 (5-15); BUN 40 mg/dL (4-19); BUN/Creat Ratio 16.8 RATIO (10-20); Calcium,Total 9.5 mg/dL (7.6-11.0); Carbon Dioxide 22.8 mmol/L (21.0-32.0); Chloride 96 mmol/L (98-108); Creatinine, Serum 2.41 mg/dL (0.70-1.20); EST Glomerular Filtration Rate 25 (>60); Glucose 307 mg/dL (70-99); Potassium 4.5 mmol/L (3.3-5.1); Sodium Level 134 mmol/L (133-145)
== END | disposition home or self-care (01) ==
LOC: MTLAB 14:03
PROVIDERS: PCP Internal Medicine; Referring Provider Nurse Practitioner Family; Visit Provider Nurse Practitioner Family
DX: D64.9 Anemia, unspecified (principal); Z79.01 Long term (current) use of anticoagulants
CPT/HCPCS: 36415; 80048; 85027

== ENCOUNTER → 2025-05-19 | Outpatient (CLI) | payer MEDICARE, SELFPAY | END | disposition home or self-care (01) | LOC: LABSPEC 14:48 | PROVIDERS: Referring Provider Nurse Practitioner Family; Visit Provider Nurse Practitioner Family | DX: J44.9 Chronic obstructive pulmonary disease, unspecified (principal) | CPT/HCPCS: 87070; 87205 ==

== ENCOUNTER → 2025-05-28 | Outpatient (CLI) | payer MEDICARE, SELFPAY ==
[2025-05-28 11:19] LABS: Hematocrit 34.2 % (40-54); Hemoglobin 12.7 g/dL (13.0-16.5); Mean Corp Hgb Conc 37.1 g/dL (32-36); Mean Corpuscular Volume 98.8 fL (80-94); Mean Platelet Vol. 10.6 fl (6.2-12.0); Platelet Count 266 K/mm3 (150-450); RBC Distribution Width CV 14.9 % (11.6-14.6); RBC Distribution Width SD 49.4 fl (35.1-43.9); Red Blood Count 3.46 M/mm3 (4.6-6.2); White Blood Count 7.1 K/mm3 (4.4-11.0)
[2025-05-28 11:47] LABS: Creatinine, Urine (random) 48.50 mg/dL (39.00-259.00); Protein, Urine (Random) 10.6 mg/dL (0.0-12.0); Protein:Creat Ratio 219 mg/g CRE (0-200)
[2025-05-28 13:08] LABS: Anion Gap 13 (5-15); BUN 47 mg/dL (4-19); Calcium,Total 9.5 mg/dL (7.6-11.0); Carbon Dioxide 26.7 mmol/L (21.0-32.0); Chloride 96 mmol/L (98-108); Glucose 153 mg/dL (70-99); Potassium 4.4 mmol/L (3.3-5.1)
[2025-05-28 13:36] LABS: BUN/Creat Ratio 22.2 RATIO (10-20); Iron 61 ug/dL (65-175); Iron Binding Capacity,Total 248 ug/dL (250-450); Iron Binding Capacity,Unsat 187 ug/dL (228-428)
== END | disposition home or self-care (01) ==
PROVIDERS: PCP Internal Medicine; Referring Provider Nurse Practitioner Family; Visit Provider Nurse Practitioner Family
DX: J44.9 Chronic obstructive pulmonary disease, unspecified (principal); N18.4 Chronic kidney disease, stage 4 (severe)
CPT/HCPCS: 36415; 80048; 82570; 83540; 83550; 84156; 85027; 94010; 94726; 94729

== ENCOUNTER 2025-06-14 00:44 | Emergency (ER) | payer MEDICARE, SELFPAY ==
[2025-06-14] VITALS (7 sets, daily range): BP systolic 141–181; BP diastolic 68–89; PULSE 59–67; RESP 18–21; TEMP 36.6–36.8; O2SAT 94–98; BMI 30.1
--- NOTE | 2025-06-14 00:45 | EKG12_ITS ---
Test Reason : CP Blood Pressure : */* mmHG Vent. Rate : 69 BPM Atrial Rate : * BPM P-R Int : * ms QRS Dur : 108 ms QT Int : 460 ms P-R-T Axes : * 16 73 degrees QTcB Int : 492 ms Atrial fibrillation Nonspecific ST and T wave abnormality QTcB >= 480 msec Abnormal ECG Confirmed by Bryant Tsang ([id number]), photo editor LASHANDA GARNETT ([id number]) on 06/14/2025 9:54:43 AM Referred By: ROBERTO CARLOS Confirmed By: Bryant Tsang
[2025-06-14] MEDS: Nitroglycerin SL (ED/IMG/CATH) 0.4 MG TABLET SL (01:25)
--- OUTSIDE RECORDS SUMMARY | 2025-06-14 01:32 | XMS RPT_ITS | CCD ---
Author Organization [facility] Care Team Providers Care Chief Of Staff Doctor Name Role Phone Emeka Horn MD Primary Care Provider Chito Rivero Unavailable Dr. Emeka Horn Primary Care Provider Nancy ELECTROCARDIOGRAPH REPAIRER, ELECTROCARDIOGRAPH REPAIRER-C Denise Attending Provider Nancy HACKETT, ELECTROCARDIOGRAPH REPAIRER-C Denise Referring Provider [phone] Dr. Emeka Horn Referring Provider Dick ELECTROCARDIOGRAPH REPAIRER, ELECTROCARDIOGRAPH REPAIRER-C Marguerite Attending Provider Dick ELECTROCARDIOGRAPH REPAIRER, ELECTROCARDIOGRAPH REPAIRER-C Marguerite Referring Provider Dick HACKETT, ELECTROCARDIOGRAPH REPAIRER-C Marguerite Other Provider Dr. Nabil Pierre Attending Provider DEBI Cho Attending Provider Dr. Emeka Horn Primary Care Provider Dr. Emeka Horn Referring Provider Dick HACKETT, ELECTROCARDIOGRAPH REPAIRER-C Marguerite Attending Provider Nancy HACKETT, ELECTROCARDIOGRAPH REPAIRER-C Denise Attending Provider Dr. Emeka Horn Primary Care Provider Emeka Horn MD Primary Care Provider Chito Rivero Unavailable Dr. Emeka Horn Primary Care Provider Dr. Emeka Horn Referring Provider DEBI Cho Attending Provider Dr. Elvin Milligan Emergency Provider Dr. Rhonda Grayson Admit Provider Dr. Rhonda Grayson Attending Provider Dr. Rhonda Grayson Other Provider Dr. Akash Monk Attending Provider Dr. Emeka Horn Primary Care Provider Kory, Dr. Hendrickson Referring Provider Kory, Dr. Hendrickson Primary Care Provider Kory, Dr. Hendrickson Referring Provider Dick ELECTROCARDIOGRAPH REPAIRER, ELECTROCARDIOGRAPH REPAIRER-C Marguerite Attending Provider Kory, Dr. Hendrickson Primary Care Provider Kory, Dr. Hendrickson Referring Provider Nancy ELECTROCARDIOGRAPH REPAIRER, ELECTROCARDIOGRAPH REPAIRER-C Denise Attending Provider Dick ELECTROCARDIOGRAPH REPAIRER, ELECTROCARDIOGRAPH REPAIRER-C Marguerite Attending Provider Dr. Elvin Milligan Emergency Provider Dr. Rhonda Grayson Admit Provider Dr. Rhonda Grayson Attending Provider Dr. Rhonda Grayson Other Provider Dr. Akash Monk Attending Provider DEBI Garcia Attending Provider Dr. Audra Schneider Admit Provider Dr. Audra Schneider Attending Provider Dr. Audra Schneider Other Provider Dr. Brandon Mar Other Provider Dr. Brandon Mar Attending Provider Dr. Tracey Orantes Other Provider Dr. Ben Rubi Other Provider Dr. Mg Jo Other Provider Kaz ELECTROCARDIOGRAPH REPAIRER, ELECTROCARDIOGRAPH REPAIRER-C Bijal Attending Provider Dr. Mg Jo Attending Provider Dr. Fabrice Garcia Attending Provider Dr. Fabrice Garcia Other Provider Dinora PA, PA Laura Crespo Attending Provider Dr. Audra Schneider Admit Provider Dr. Audra Schneider Attending Provider Dr. Audra Schneider Other Provider Dr. Brandon Mar Other Provider Dr. Brandon Mar Attending Provider [phone] Dr. Tracey Orantes Other Provider Dr. Ben Rubi Other Provider Dr. Mg Jo Other Provider [phone] Kaz ELECTROCARDIOGRAPH REPAIRER, ELECTROCARDIOGRAPH REPAIRER-C Bijal Attending Provider Dr. Mg Jo Attending Provider [phone] Dr. Fabrice Garcia Attending Provider Dr. Fabrice Garcia Other Provider Dr. Ben Rubi Attending Provider Kaz ELECTROCARDIOGRAPH REPAIRER, ELECTROCARDIOGRAPH REPAIRER-C Bijal Attending Provider Dr. Coy Conway Admit Provider Dr. Coy Conway Attending Provider Dr. Coy Conway Other Provider Dr. Chito Rivero Other Provider Dr. Luiz Painter Other Provider Dr. Ephraim Walton Other Provider Unavail radha Cruz ELECTROCARDIOGRAPH REPAIRER, ELECTROCARDIOGRAPH REPAIRER-C Denise Other Provider Dr. Chito Rivero Attending Provider Dr. Luiz Painter Attending Provider Max, Dr. Presley Other Provider Max, Dr. Presley Attending Provider Dr. Emeka Horn Primary Care Provider Dr. Emeka Horn Referring Provider Dr. Ben Rubi Referring Provider Deysi, Dr. Holliday Referring Provider 1([facility])[phone] Dr. Riaz Garrison Primary Care Provider Dr. Riaz Garrison Attending Provider 1([facility])[phone] Chito Rivero Cory Unavailable Dr. Riaz Garrison Primary Care Provider Dr. Riaz Garrison Attending Provider 1([facility]) Dr. Riaz Garrison Referring Provider 1([facility]) [phone] Nancy ELECTROCARDIOGRAPH REPAIRER, ELECTROCARDIOGRAPH REPAIRER-C Denise Attending Provider Dr. Emeka Horn Referring Provider 1([facility])[phone] Dr. Nabil Pierre Attending Provider 1([facility])[phone] Florentin Lagunas Attending Provider 1([facility])[phone] Riaz Garrison Primary Care Provider Dr. Riaz Garrison Attending Provider [phone] Dr. Riaz Garrison Referring Provider 1([facility])[phone] Dr. Florentin Lagunas Attending Provider Dr. Chito Rivero Attending Provider 1([facility])[phone] Dick ELECTROCARDIOGRAPH REPAIRER, ELECTROCARDIOGRAPH REPAIRER-C Marguerite Attending Provider Dr. Nabil Pierre Attending Provider 1([facility])[phone] Riaz Garrison Primary Care Provider Dr. Riaz Garrison Referring Provider 1([facility]) -[phone] Dr. Nabil Pierre Referring Provider [phone] Dr. Riaz Garrison Attending Provider [phone] Mat SMITH, Chito Ray Unavailable Riaz Garrison MD Primary Care Provider [phone] Dr. Riaz Garrison Primary Care Provider Dr. Riaz Garrison Referring Provider 1(330) Dr. Riaz Garrison Primary Care Provider Dr. Riaz Garrison Referring Provider [phone] Dick ELECTROCARDIOGRAPH REPAIRER, ELECTROCARDIOGRAPH REPAIRER-C Marguerite Attending Provider Dr. Nabil Pierre Attending Provider [phone] Dr. Nabil Pierre Referring Provider [phone]) Dr. Riaz Garrison Attending Provider [phone] RIAZ GARRISON Primary Care Unavailable RENE ZAPATA Attending Unavailable RENE ZAPATA Admitting Unavailable Dr. Riaz Garrison Primary Care Provider Dr. Riaz Garrison Referring Provider [phone](330) Dr. Rosa Collins Emergency Provider Dr. Raymond Teague Attending Provider Unavail able Dr. Riaz Garrison Primary Care Provider Dr. Riaz Garrison Attending Provider [phone]) Dr. Riaz Garrison Referring Provider [phone]) Dr. Rosa Collins Emergency Provider Dr. Raymond Teague Attending Provider Unavail tiffanie Jennings ELECTROCARDIOGRAPH REPAIRER, ELECTROCARDIOGRAPH REPAIRER-C Marguerite Attending Provider Dr. Ben Rainey Attending Provider [phone] Dr. Riaz Garrison Primary Care Provider Dr. Riaz Garrison Attending Provider 1(330) Dr. Riaz Garrison Referring Provider 1(330) Dick ELECTROCARDIOGRAPH REPAIRER, ELECTROCARDIOGRAPH REPAIRER-C Marguerite Attending Provider Dr. Ben Rainey Attending Provider [phone] ANNA Negron Attending Provider [phone] Dr. Rosa Collins Emergency Provider Dr. Riaz Garrison Primary Care Provider Dr. Raymond Teague Attending Provider Unavail able Dr. Riaz Garrison Referring Provider [phone] Dick ELECTROCARDIOGRAPH REPAIRER, ELECTROCARDIOGRAPH REPAIRER-C Marguerite Attending Provider Dr. Riaz Garrison Attending Provider [phone]) Dr. Ben Rainey Attending Provider [phone] Dick ELECTROCARDIOGRAPH REPAIRER, ELECTROCARDIOGRAPH REPAIRER-C Marguerite Referring Provider ANNA Negron Attending Provider [phone] Nancy ELECTROCARDIOGRAPH REPAIRER, ELECTROCARDIOGRAPH REPAIRER-C Denise Attending Provider Dr. Natanael Martinez Attending Provider Dr. Dinesh Comer Referring Provider NURSE, BIM Attending Provider Unavailable Dr. Riaz Garrison Primary Care Provider Dr. Riaz Garrison Referring Provider [phone] Dick HACKETT, ELECTROCARDIOGRAPH REPAIRER-C Marguerite Attending Provider Dr. Riaz Garrison Primary Care Provider Dr. Riaz Garrison Referring Provider [phone]) Dr. Riaz Garrison Attending Provider [phone] Dr. Elvin Milligan Emergency Provider Dr. Hansel Gillis Admit Provider Unavailable Dr. Hansel Gillis Attending Provider Unavail Dr. Hansel Majano Other Provider Unavailable Dr. Brandon Mar Attending Provider Dr. Fernandez Santana Attending Provider Dr. Fernandez Santana Other Provider [phone] Dr. Bimal Thomas Other Provider Dr. Armin Woods Other Provider Dr. Luiz Painter Other Provider Dr. You Harrison Other Provider Dr. Goldy Tristan Other Provider Dr. Nicole Sherwood Other Provider [phone] Dr. Mirza Cabral Other Provider Dr. Belle Amaral Other Provider Dr. Dion Botello Other Provider Unavailable Denice, Dr. Rojo Other Provider Dr. Dave Kovacs Other Provider [phone] Greg Zarate Other Provider Dr. Guillermo Briones Other Provider Dr. Matt Ervin Other Provider Dr. Jonny Abebe Other Provider [phone] Luiz Painter Attending Provider Dr. Riaz Garrison Primary Care Provider Dick HACKETT, ELECTROCARDIOGRAPH REPAIRER-C Marguerite Attending Provider Dr. Fernandez Santana Referring Provider [phone] Riaz Garrison Primary Care Provider Dr. Riaz Garrison Referring Provider [phone] ANNA Negron Attending Provider Dinora PA, PA Laura Crespo Attending Provider Riaz Garrison MD Primary Care Provider [phone] Ignacio SMITH, Nabil Palomino Unavailable Luiz Painter Unavailable JOSEMNAUEL KIM Attending UnavailJOSEMANUEL Smith Referring UnavailRIAZ Yang Primary Care Unavailable RENE ZAPATA Admitting Unavailable RENE ZAPATA Attending Unavailable SELHUMPHREYSONRENE Referring Unavailable MELI, RIAZ G Primary Care Unavailable KEISHAWING, EER Consulting Unavailable SELIGSONRENE Referring Unavailable MELI, RIAZ G Primary Care Unavailable BIJAL ZEE Referring Unavailable MELI, RIAZ G Primary Care Unavailable SELRENE FULTON Attending Unavailable MELI, RIAZ G Primary Care Unavailable JOSEMANUEL KIM Attending Unavailabl e MELI, RIAZ G Primary Care Unavailable Meli SMITH, Dr. Pradhan Primary Care Provider [phone] Meli SMITH, Dr. Pradhan Attending Provider Dr. Riaz Garrison MD Referring Provider Tessy Clark MA Attending Provider Unavailable Jordana ELECTROCARDIOGRAPH REPAIRER-C, Kisha Crespo Attending Provider Ramses ELECTROCARDIOGRAPH REPAIRER-C, Miracle Attending Provider Ramses ELECTROCARDIOGRAPH REPAIRER-C, Miracle Referring Provider [facility] ELECTROCARDIOGRAPH REPAIRER-C, Mike Franklin Attending Provider Bean SHAH, Dr. Hoffman Emergency Provider Gregorio SHAH, Dr. Painter Admit Provider Gregorio SHAH, Dr. Painter Attending Provider Dr. Riaz Garrison MD Primary Care Provider [phone] Dr. Riaz Garrison MD Referring Provider Gregorio SHAH, Dr. Painter Other Provider Dr. Riaz Garrison MD Attending Provider Dr. Wellington Lay DO Emergency Provider Dr. Riaz Garrison MD Primary Care Provider Jordana ELECTROCARDIOGRAPH REPAIRER-C, Kisha Crespo Attending Provider Dr. Riaz Garrison MD Referring Provider Dr. Wellington Lay DO Attending Provider Dinora CARRERA, Laura M Attending Provider Souleymane SMITH, Dr. Montiel Emergency Provider [phone] de Shlomo SHAH, Dr. Andrade Admit Provider Unavail able de Shlomo SHAH, Dr. Andrade Attending Provider Unav ailable de Shlomo SHAH, Dr. Andrade Other Provider Unavail able Ignacio SMITH, Dr. Ferrer Attending Provider [phone] Angella SMITH, Oscar Other Provider Unavailable Jonathan SMITH, Dr. Gupta Other Provider Lex SMITH, Jannette Other Provider Unavailable Trevor SHAH, Dr. King Other Provider Carlota SMITH, Dr. Wild Other Provider Vignesh SMITH, Dr. Gonzalez Other Provider James SMITH, Dr. Hyde Other Provider Mario SMITH, Dr. Montgomery Other Provider Federico SMITH, Dr. Mckeon Other Provider Yonathan SMITH, Dr. Erwin Other Provider Beverley San MD Other Provider Presley SMITH, Dr. Burnett Other Provider Wilmar SMITH, Dr. White Other Provider Johann SMITH, Dr. Nicole Other Provider Estefanía SMITH, Dr. Shira Gonzalez Other Provider Minh SMITH, Dr. Alcantar Other Provider Monica SMITH, Dr. Aj Other Provider Carla SMITH, Dr. Payne Other Provider Kenan SMITH, Dr. Greenberg Other Provider Unavailable Orly SMITH, Yousef Other Provider Unavailable Kimberley SHAH, Dr. Giraldo Emergency Provider Carlin SMITH, Dr. Hamm Admit Provider Unavailab radha Gillis MD, Dr. Hamm Attending Provider Unavai lable Gillis MD, Dr. Hamm Referring Provider Jose Martin Gillis MD, Dr. Hamm Other Provider [facility] radha Orantes MD, Dr. Tracey Lay Other Provider Carlin SMITH, Dr. Hamm Attending Provider Jose Martin Garrison MD, Dr. Pradhan Primary Care Provider Jordana ELECTROCARDIOGRAPH REPAIRER-C, Kisha Crespo Attending Provider Jamey CARRERA, Vipul Attending Provider Vipul Fernandez Referring Provider Puneet Tubbs Attending Provider Puneet Tubbs Referring Provider [phone] Emeka SHAH, Dr. Perkins Emergency Provider Emeka SHAH, Dr. Perkins Emergency Provider Rolanda SIMTH, Dr. Tracey Lay Attending Provider Luis Enrique SMITH, Dr. Avendano Other Provider [phone] Amparo SMITH, Dr. Santoyo Other Provider Max SMITH, Dr. Presley Other Provider Anselmo SMITH, Dr. Li Other Provider Max SMITH, Dr. Presley Attending Provider Luis Enrique SMITH, Dr. Avendano Attending Provider Dr. Luiz Painter DO Attending Provider Luis Enrique SMITH, Dr. Avendano Other Provider Luis Enrique SMITH, Dr. Avendano Attending Provider Rolanda SMITH, Dr. Tracey Lay Referring Provider Regi ELECTROCARDIOGRAPH REPAIRER-CBijal Attending Provider Nancy ELECTROCARDIOGRAPH REPAIRER-CDenise Attending Provider RIAZ GARRISON Primary Care Unavailable DARRYL MALLORY Referring Unavailable DARRYL MALLORY Attending Unavailable MALLORY, DARRYL D Referring Unavailable MELI, RIAZ G Primary Care Unavailable MALLORY, DARRYL D Referring Unavailable MALLORY, DARRYL D Attending Unavailable MELI, RIAZ G Primary Care Unavailable TESTRAKE, VIPUL Referring Unavailable TESTRAKE, VIPUL Attending Unavailable MELI, RIAZ G Primary Care Unavailable TESTRAKE, VIPUL Referring Unavailable TESTRAKE, VIPUL Attending Unavailable MELI, RIAZ G Primary Care Unavailable MALLORY, DARRYL D Referring Unavailable MELI, RIAZ G Primary Care Unavailable TESTRAKE, VIPUL Referring Unavailable TESTRAKE, VIPUL Attending Unavailable MELI, RIAZ G Primary Care Unavailable MELI, RIAZ G Primary Care Unavailable TESTRAKE, VIPUL Referring Unavailable TESTRAKE, VIPUL Attending Unavailable TESTRAKE, VIPUL Attending Unavailable TESTRAKE, VIPUL Referring Unavailable MELI, RIAZ G Primary Care Unavailable SELIGSON, RENE Referring Unavailable MELI, RIAZ G Primary Care Unavailable MALLORY, DARRYL D Attending Unavailable SELIGSON, RENE Referring Unavailable MELI, RIAZ G Primary Care Unavailable TESTRAKE, VIPUL Referring Unavailable TESTRAKE, VIPUL Attending Unavailable MELI, RIAZ G Primary Care Unavailable Meli SMITH, Dr. Pradhan Primary Care Provider [phone] Dr. Riaz Garrison MD Attending Provider Dr. Riaz Garrison MD Referring Provider Dr. Inocencio Perkins DO Attending Provider Dr. Inocencio Perkins DO Other Provider Marcelinoeremaverick ELECTROCARDIOGRAPH REPAIRER-C, Bijal Referring Provider Nicolas Alarcon MD Attending Provider [phone] Jordana ELECTROCARDIOGRAPH REPAIRER-C, Kisha Crespo Attending Provider Dr. Riaz Garrison MD Primary Care Provider [phone] Jordana ELECTROCARDIOGRAPH REPAIRER-C, Kisha Crespo Referring Provider Andrae SMITH, Dr. Fuller Other Provider [facility] ELECTROCARDIOGRAPH REPAIRER-CMike Attending Provider Meli SMITH, Dr. Pradhan Primary Care Provider Meli SMITH, Dr. Pradhan Referring Provider Meli SMITH, Dr. Pradhan Attending Provider Gillis, Achintya Referring Unavailable Gillis, Achintya Consulting Unavailable Gillis, Achintya Admitting Unavailable Inocencio Perkins Attending Unavailable [place]wich, Riaz Primary Care Unavailable Koram, Tracey Rosanne Consulting Unavailable Raymond Teague Admitting Unavailable Raymond Teague Consulting Unavailable [place], Riaz Primary Care Unavailable Inocencio Perkins Attending Unavailable Meli, Riaz Primary Care Unavailable Gillis, Achintya Admitting Unavailable Gillis, Achintya Consulting Unavailable Koram, Tracey Rosanne Attending Unavailable Koram, Tracey Rosanne Consulting Unavailable Belal, Farouk Consulting Unavailable Amparo, Natanael Consulting Unavailable Max, Fernandez Consulting Unavailable Meli, Riaz Primary Care Unavailable Gillis, Achintya Consulting Unavailable Gillis, Achintya Admitting Unavailable Koram, Tracey Rosanne Attending Unavailable Koram, Tracey Rosanne Consulting Unavailable Belal, Farouk Consulting Unavailable Amparo, Natanael Consulting Unavailable Max, Fernandez Consulting Unavailable Meli, Riaz Primary Care Unavailable Inocencio Perkins Admitting Unavailable Inocencio Perkins Attending Unavailable Meli, Riaz Attending Unavailable Meli, Riaz Primary Care Unavailable Meli, Riaz Referring Unavailable [place], Riaz Primary Care Unavailable Ungerer, Bijal Referring Unavailable Ungestebanr, Bijal Attending Unavailable Vipul Fernandez Attending Unavailable Vipul Fernandez Referring Unavailable Green[place], Riaz Primary Care Unavailable [place], Riaz Attending Unavailable Meil, Riaz Primary Care Unavailable [place], Riaz Referring Unavailable Meli, Riaz Attending Unavailable Meli, Riaz Primary Care Unavailable Meli, Riaz Referring Unavailable [place], Riaz Primary Care Unavailable Puneet Tubbs Referring Unavailable Puneet Tubbs Attending Unavailable [place], Riaz Primary Care Unavailable Wellington Lay Attending Unavailable [place], Riaz Primary Care Unavailable Enzo Chu Attending Unavailable Meli, Riaz Primary Care Unavailable Meli, Riaz Attending Unavailable Meli, Riaz Referring Unavailable [place], Riaz Primary Care Unavailable Kisha Silveira Referring Unavailable Jonny Abebe Consulting Unavailable Kisha Silveira Attending Unavailable Kisha Silveira Referring Unavailable Kisha Silveira Attending Unavailable Meli, Riaz Primary Care Unavailable Meli, Riaz Attending Unavailable Nabil Pierre Attending Unavailable Meli, Riaz Primary Care Unavailable Fernandez Santana Attending Unavailable Gillis, Achintya Referring Unavailable Gillis, Achintya Admitting Unavailable Gillis, Achintya Consulting Unavailable Inocencio Perkins Attending Unavailable [place], Riaz Primary Care Unavailable Koram, Tracey Rosanne Consulting Unavailable Inocencio Perkins Consulting Unavailable Luiz Painter Attending Unavailable Koram, Tracey Rosanne Referring Unavailable [place], Riaz Primary Care Unavailable Inocencio Perkins Admitting Unavailable Inocencio Perkins Consulting Unavailable Inocencio Perkins Attending Unavailable Nabil Pierre Attending Unavailable Meli, Riaz Referring Unavailable Nicolas Alarcon Attending Unavailable [place], Riaz Primary Care Unavailable [place], Iraz Referring Unavailable Roof ELECTROCARDIOGRAPH REPAIRER, Mike Franklin Attending Unavailable [place], Riaz Referring Unavailable Meli, Riaz Primary Care Unavailable Roof ELECTROCARDIOGRAPH REPAIRER, Mike Franklin Attending Unavailable [place], Riaz Referring Unavailable Kisha Silveira Attending Unavailable Meli, Riaz Primary Care Unavailable Tk Chandra Admitting Unavailable Tk Chandra Consulting Unavailable Tk Chandra Attending Unavailable Raymond Teague Admitting Unavailable Raymond Teague Consulting Unavailable Inocencio Perkins Attending Unavailable [place], Riaz Primary Care Unavailable Inocencio Perkins Consulting Unavailable Gillis, Achintya Attending Unavailable Oscar Perales Consulting Unavailable Adeelsa, Candy Consulting Unavailable Hinduja, Jannette Consulting Unavailable Christine Murray Consulting Unavailable Torri Van Consulting Unavailable Carlos Medellin Consulting Unavailable Mary Ellen Ramirez Consulting Unavailable Ulises Martin Consulting Unavailable Mike Caballero Consulting Unavailable Rip Mcmanus Consulting Unavailable Beverley San Consulting Unavailable Vipul Sherwood Consulting Unavailable Wilmar, Cindy Consulting Unavailable Ridzeb, Mohamed Consulting Unavailable Estefanía, Delmisd Carlos Consulting UnavailOrtiz Arcos Consulting Unavailable Anderson, Jean Marie Consulting Unavailable Elmer Aguirre Consulting Unavailable Yari Grayson Consulting Unavailable Orly, Karenswati Consulting Unavailable Romana Dudley Attending Unavailable Anselmo, Guillermo Consulting Unavailable [place], Riaz Primary Care Unavailable Gillis, Achintya Admitting Unavailable Gillis, Achintya Attending Unavailable Gillis, Achintya Consulting Unavailable Brandon Mar Attending Unavailabl e [place], Riaz Primary Care Unavailable Meli, Riaz Referring Unavailable Puneet Tubbs Attending Unavailable Meli, Riaz Referring Unavailable [place], Riaz Primary Care Unavailable Laura Garcia Attending Unavail able Raymond Teague Attending Unavailable Meli, Riaz Primary Care Unavailable Tk Chandra Admitting Unavailable Tk Chandra Attending Unavailable [place], Riaz Primary Care Unavailable [place], Riaz Attending Unavailable Meli, Riaz Primary Care Unavailable Laura Garcia Attending Unavail able Laura Garcia Referring Unavail able [place], Riaz Primary Care Unavailable Kisha Silveira Attending Unavailable Meli, Riaz Attending Unavailable Meli, Riaz Primary Care Unavailable Meli, Riaz Primary Care Unavailable Alejandro, Yessica Referring Unavailable Alejandro, Yessica Attending Unavailable Meli, Riaz Referring Unavailable Greenwich, Riaz Primary Care Unavailable [place], Riaz Attending Unavailable Meli, Riaz Referring Unavailable [place], Riaz Primary Care Unavailable Bijal Deluna Attending Unavailable [place], Riaz Primary Care Unavailable Meli, Riaz Referring Unavailable Denise Cruz NP Attending Unavailable [place], Riaz Primary Care Unavailable Meli, Riaz Referring Unavailable Laura Garcia Attending Unavail able [place], Riaz Primary Care Unavailable Bijal Deluna Attending Unavailable Meli, Riaz Referring Unavailable Meli, Riaz Primary Care Unavailable [place], Riaz Referring Unavailable Wayt PA, Vipul Attending Unavailable Meli, Riaz Primary Care Unavailable Meli, Riaz Referring Unavailable Laura Garcia Attending Unavail able Greenwich, Riaz Primary Care Unavailable [place], Riaz Referring Unavailable Kisha Silveira Attending Unavailable [place], Riaz Attending Unavailable [place], Riaz Primary Care Unavailable Meli, Riaz Referring Unavailable [place], Riaz Referring Unavailable Meli, Riaz Primary Care Unavailable Vipul Fernandez Attending Unavailable Meli, Riaz Primary Care Unavailable [place], Riaz Attending Unavailable [place], Riaz Referring Unavailable Meli, Riaz Primary Care Unavailable Meli, Riaz Attending Unavailable Meli, Riaz Referring Unavailable Greenwich, Riaz Primary Care Unavailable [place], Riaz Referring Unavailable Kisha Silveira Attending Unavailable [place], Riaz Primary Care Unavailable [place], Riaz Attending Unavailable [place], Riaz Referring Unavailable Meli, Riaz Primary Care Unavailable Luiz Painter Attending Unavailable Kisha Silveira Referring Unavailable Meli, Riaz Referring Unavailable Marguerite Jennings NP Attending Unavailable Meli, Riaz Primary Care Unavailable [place], Riaz Primary Care Unavailable Tessy Clark Attending Unava ilable Meli, Riaz Primary Care Unavailable Tk Chandra Referring Unavailable Nikolai Tsang Attending Unavailable [place], Riaz Primary Care Unavailable Miracle Pearce Referring Unavailable Miracle Pearce Attending Unavailable Allergies Allergy Classification Reported Allergen(s) Allergy Type Date of Onset Reaction(s) Facility (20 sources) cilostazol; Translations: [CILOSTAZOL] Drug Allergy 2 Itching [facility] Work Phone: (20 sources) Felodipine; Translations: [FELODIPINE] Drug Allergy 5 Rash [facility] Work Phone: (20 sources) levoFLOXacin; Translations: [LEVOFLOXACIN] Drug Allergy 5 Hives [facility] (20 sources) Sulfonamides (Antibiotic); Translations: [SULFA (SULFONAMIDE ANTIBIOTICS)] Propensity to adverse reactions 5 Itching [facility] Work Phone: (20 sources) Sulfonamides (Antibiotic) Allergy to substance 2 Unknown [facility] (15 sources) Isosorbide Drug Allergy 5 [facility] (1 source) cilostazol Drug Allergy 5 [facility] (1 source) Felodipine Drug Allergy 5 [facility] (1 source) Isosorbide Drug Allergy 5 [facility] (1 source) levoFLOXacin Drug Allergy 5 [facility] (1 source) Sulfonamides (Antibiotic) Drug allergy (disorder) 5 [facility] [facility] Repository Medications Current Medications Medication Drug Class(es) Dates Sig (Normalized) Sig (Original) Budesonide-Formotero l (20 sources) Corticosteroid, beta2-Adrenergic Agonist Start: 03-23-2025 Start: 10-16-2024 End: 03-23-2025 Start: 10-16-2024 Start: 03-26-2024 End: 10-16-2024 Start: 12-12-2023 take 1 puff(s) by [facility] twice daily budesonide-formoterol (SYMBICORT) 160-4.5 mcg/actuation inhaler inhale2 puffs BY MOUTH twice a day; administer with spacer, rinse mouth after each use] 12/12/2023 Active Start: 12-12-2023 take 1 puff(s) by [facility] twice daily budesonide-formoterol (SYMBICORT) 160-4.5 mcg/actuation inhaler inhale2 puffs BY MOUTH twice a day; administer with spacer, rinse mouth after each use] 0 12/12/2023 Active Start: 10-23-2023 End: 03-26-2024 Start: 10-23-2023 Start: 11-06-2022 End: 05-06-2023 take 1 puff(s) by mouth twice daily Budesonide-Formoterol (Symbicort) 160-4.5 mcg/actuation HFA aerosol inhaler Discontinued 2 PUFF INHALATION TWICE A DAY November 06, 2022 2:48pm May 06, 2023 12:14pm administer with spacer, rinse mouth after each use Start: 11-06-2022 End: 05-06-2023 Start: 11-06-2022 End: 05-06-2023 take 1 puff(s) by mouth twice daily Budesonide-Formoterol (Symbicort) 160-4.5 mcg/actuation HFA aerosol inhaler Discontinued 2 PUFF INHALATION TWICE A DAY November 06, 2022 3:48pm May 06, 2023 1:14pm administer with spacer, rinse mouth after each use Start: 11-06-2022 take 1 puff(s) by [facility] twice daily Budesonide-Formoterol (Symbicort) 160-4.5 mcg/actuation HFA aerosol inhaler Active 2 PUFF INHALATION TWICE A DAY November 06, 2022 2:48pm administer with spacer, rinse mouth after each use Start: 03-09-2022 End: 11-06-2022 Start: 03-09-2022 End: 11-06-2022 take 1 puff(s) by mouth twice daily Budesonide-Formoterol (Symbicort) 160-4.5 mcg/actuation HFA aerosol inhaler Discontinued 2 PUFF INHALATION TWICE A DAY March 09, 2022 5:12pm November 06, 2022 3:52pm administer with spacer, rinse mouth after each use Start: 03-09-2022 End: 11-06-2022 take 1 puff(s) by mouth twice daily Budesonide-Formoterol (Symbicort) 160-4.5 mcg/actuation HFA aerosol inhaler Discontinued 2 PUFF INHALATION TWICE A DAY March 09, 2022 4:12pm November 06, 2022 2:52pm administer with spacer, rinse mouth after each use Start: 03-09-2022 Start: 03-09-2022 take 1 puff(s) by [facility] twice daily Budesonide-Formoterol (Symbicort) 160-4.5 mcg/actuation HFA aerosol inhaler Active 2 PUFF INHALATION TWICE A DAY March 09, 2022 5:12pm administer with spacer, rinse mouth after each use Start: 02-21-2022 End: 03-09-2022 take 1 puff(s) by mouth twice daily Budesonide-Formoterol (Symbicort) 160-4.5 mcg/actuation HFA aerosol inhaler Discontinued 2 PUFF INHALATION TWICE A DAY 3 February 21, 2022 1:38pm March 09, 2022 4:12pm administer with spacer, rinse mouth after each use Start: 02-21-2022 End: 03-09-2022 Start: 02-21-2022 End: 03-09-2022 take 1 puff(s) by mouth twice daily Budesonide-Formoterol (Symbicort) 160-4.5 mcg/actuation HFA aerosol inhaler Discontinued 2 PUFF INHALATION TWICE A DAY 3 February 21, 2022 2:38pm March 09, 2022 5:12pm administer with spacer, rinse mouth after each use Start: 02-21-2022 take 1 puff(s) by [facility] twice daily Budesonide-Formoterol (Symbicort) 160-4.5 mcg/actuation HFA aerosol inhaler Active 2 PUFF INHALATION TWICE A DAY 3 February 21, 2022 2:38pm administer with spacer, rinse mouth after each use Start: 11-01-2021 End: 02-21-2022 take 1 puff(s) by mouth twice daily Budesonide-Formoterol (Symbicort) 160-4.5 mcg/actuation HFA aerosol inhaler Discontinued 2 PUFF INHALATION TWICE A DAY 3 November 01, 2021 11:41am February 21, 2022 1:38pm administer with spacer, rinse mouth after each use Start: 11-01-2021 End: 02-21-2022 Start: 11-01-2021 End: 02-21-2022 take 1 puff(s) by mouth twice daily Budesonide-Formoterol (Symbicort) 160-4.5 mcg/actuation HFA aerosol inhaler Discontinued 2 PUFF INHALATION TWICE A DAY 3 November 01, 2021 12:41pm February 21, 2022 2:38pm administer with spacer, rinse mouth after each use Start: 11-01-2021 take 1 puff(s) by [facility] twice daily Budesonide-Formoterol (Symbicort) 160-4.5 mcg/actuation HFA aerosol inhaler Active 2 PUFF INHALATION TWICE A DAY 3 November 01, 2021 12:41pm administer with spacer, rinse mouth after each use Start: 07-25-2021 budesonide-for moterol (SYMBICORT) 160-4.5 mcg/actuation inhaler TWICE A DAY 0 07/25/2021 Active Start: 07-25-2021 End: 11-01-2021 take 1 puff(s) by mouth twice daily Budesonide-Formoterol (Symbicort) 160-4.5 mcg/actuation HFA aerosol inhaler Discontinued 2 PUFF INHALATION TWICE A DAY July 25, 2021 10:36am November 01, 2021 11:42am administer with spacer, rinse mouth after each use Start: 07-25-2021 End: 11-01-2021 Start: 07-25-2021 End: 11-01-2021 take 1 puff(s) by mouth twice daily Budesonide-Formoterol (Symbicort) 160-4.5 mcg/actuation HFA aerosol inhaler Discontinued 2 PUFF INHALATION TWICE A DAY July 25, 2021 11:36am November 01, 2021 12:42pm administer with spacer, rinse mouth after each use Start: 05-01-2021 End: 07-25-2021 take 1 puff(s) by mouth twice daily Budesonide-Formoterol (Symbicort) 160-4.5 mcg/actuation HFA aerosol inhaler Discontinued 2 PUFF INHALATION TWICE A DAY May 01, 2021 7:49am July 25, 2021 10:36am administer with spacer, rinse mouth after each use Start: 05-01-2021 End: 07-25-2021 Start: 05-01-2021 End: 07-25-2021 take 1 puff(s) by mouth twice daily Budesonide-Formoterol (Symbicort) 160-4.5 mcg/actuation HFA aerosol inhaler Discontinued 2 PUFF INHALATION TWICE A DAY May 01, 2021 8:49am July 25, 2021 11:36am administer with spacer, rinse mouth after each use Start: 01-12-2021 End: 05-01-2021 take 1 puff(s) by mouth twice daily Budesonide-Formoterol (Symbicort) 160-4.5 mcg/actuation HFA aerosol inhaler Discontinued 2 PUFF INHALATION TWICE A DAY January 12, 2021 1:32pm May 01, 2021 8:50am administer with spacer, rinse mouth after each use Start: 01-12-2021 End: 05-01-2021 take 1 puff(s) by mouth twice daily Budesonide-Formoterol (Symbicort) 160-4.5 mcg/actuation HFA aerosol inhaler Discontinued 2 PUFF INHALATION TWICE A DAY January 11, 2021 11:00pm May 01, 2021 7:50am administer with spacer, rinse mouth after each use Start: 01-12-2021 End: 05-01-2021 Start: 01-12-2021 End: 05-01-2021 take 1 puff(s) by mouth twice daily Budesonide-Formoterol (Symbicort) 160-4.5 mcg/actuation HFA aerosol inhaler Discontinued 2 PUFF INHALATION TWICE A DAY January 12, 2021 12:00am May 01, 2021 8:50am administer with spacer, rinse mouth after each use Comment on above: TWICE A DAY inhale2 puffs BY [facility] twice a day; administer with spacer, rinse mouth after each use] carvedilol 6.25 mg oral tabl et (20 sources) alpha-Adrenergic Wagner, beta-Adrenergic Wagner Start: 04-08-2025 Start: 03-04-2025 End: 04-08-2025 Start: 02-22-2025 End: 03-04-2025 Start: 02-18-2025 End: 02-22-2025 Start: 05-22-2022 End: 06-30-2024 Start: 09-20-2019 End: 05-25-2022 Start: 03-28-2014 End: 09-20-2019 Comment on above: Take 1 tablet by kathleen twice daily. Take 1 tablet by kathleen twice daily. Dr. Pierre. cholecalciferol 0.1 mg oral tablet (20 sources) Vitamin D Start: 11-03-2020 Start: 05-03-2020 End: 11-03-2020 Start: 11-28-2014 End: 09-16-2017 cholecalciferol, vitamin D3, (VITAMIN D3 ORAL) (20 sources) take 4000 [IU] by mouth once daily cholecalciferol, vitamin D3, (VITAMIN D3 ORAL) Take 4,000 Units by mouth once daily. Active take 4000 [IU] by mouth once solomon ly cholecalciferol, vitamin D3, (VITAMIN D3 ORAL) Take 4,000 Units by mouth once daily. 0 Active Comment on above: Take 4,000 Units by mouth once daily. empagliflozin 10 mg oral tablet (2 sources) Sodium-Glucose Cotransporter 2 Inhibitor Start: 5 ferrous sulfate 325 mg oral tablet (20 sources) Start: 4 take 1 tablet by mouth every other day FEROSUL 325 mg (65 mg iron) tablet Take 1 tablet by mouth every other day. 12/16/2023 Active Start: 06-06-2022 End: 11-06-2022 Start: 06-06-2022 End: 11-06-2022 Comment on above: Take 1 tablet by kathleen th every other day. finasteride 5 mg oral tablet (20 sources) 5-alpha Reductase Inhibitor Start: 06-01-2024 End: 06-28-2024 Start: 05-28-2024 take 1 tablet by mouth once fi nasteride (PROSCAR) 5 mg tablet Take 1 tablet by mouth every afternoon. 05/28/2024 Active FREESTYLE DWIGHT 3 PLUS SENSOR samuel (1 source) Start: 03-19-2025 FREESTYLE LIBR E 3 PLUS SENSOR samuel as directed. 03/19/2025 Active FREESTYLE DWIGHT 3 READER misc (1 source) Start: 02-01-2025 FREESTYLE LIBR E 3 READER misc as directed. 02/01/2025 Active gabapentin 100 mg oral capsule (20 sources) Anti-epileptic Agent Start: 04-27-2025 Start: 02-18-2025 End: 02-22-2025 Start: 01-29-2025 End: 03-04-2025 3 ml insulin glargine 100 un t/ml pen injector (20 sources) Insulin Analog Start: 02-15-2025 End: 05-31-2025 Start: 07-18-2023 Insulin Glargi ne (Lantus Solostar U-100 Insulin) 100 unit/mL (3 mL) insulin pen Active 15 UNIT SC EVERY MORNING July 17, 2023 11:00pm Start: 2023 End: 03-11-2024 Start: 2023 End: 03-11-2024 Start: 2023 End: 03-11-2024 Start: 2023 insulin glargi ne (LANTUS SOLOSTAR U-100 INSULIN) 100 unit/mL (3 mL) Start: 2023 insulin glargi ne (LANTUS SOLOSTAR U-100 INSULIN) 100 unit/mL (3 mL) Start: 06-14-2022 End: 08-03-2022 Start: 06-14-2022 End: 08-03-2022 Insulin Glargine (Lantus Paula ostar U-100 Insulin) 100 unit/mL (3 mL) insulin pen Discontinued 15 UNIT SC DAILY June 13, 2022 11:00pm August 03, 2022 12:41pm Hold if glucose less than 130 mg/dl ipratropium bromide 0.021 mg /actuat metered dose nasal spray (20 sources) Anticholinergic Start: 12-14-2024 Start: 11-27-2022 End: 12-14-2024 Start: 11-27-2022 End: 12-06-2023 Start: 11-27-2022 End: 11-29-2022 take 1 mL by inhalation every six hours Ipratropium [place] Active 2.5 ML INHALATION EVERY 6 HOURS November 29, 2022 8:24am Start: 11-06-2018 End: 12-14-2024 Start: 11-06-2018 End: 11-09-2022 Ipratropium [place] Disconti nued 2 SPRAY INTRANASAL 3 to 4 times per day August 01, 2022 8:17am November 09, 2022 9:43am nasal drip - administer into each nostril; wait 30 seconds between sprays Start: 02-06-2018 End: 09-04-2018 End: 05-04-2025 ipratropium bromide (ATROVEN T) 42 mcg (0.06 %) nasal spray Use 2 Sprays in the nose four times daily. 05/04/2025 Discontinued IPRATROPIUM BROM AGUSTÍN NASAL Use 2 Sprays in the nose two times a day. 21 mcg Active Comment on above: Use 2 Sprays in the nose four times daily. ammonium lactate 120 mg/ml topical cream (20 sources) Start: 07-07-2021 End: 07-07-2022 ammonium lactate (LAC-HYDRIN) 12 % cream Apply to affected area as needed. 140 g 11 07/07/2021 07/07/2022 Active Start: 02-06-2018 End: 12-14-2024 Start: 02-06-2018 Start: 02-06-2018 Ammonium Lacta te Active 1 APPLIC TOPICAL 1 to 2 times per day February 05, 2018 11:00pm AMMONIUM LACTATE TOPICAL Apply to affected area as needed. Lotion Active AMMONIUM LACTATE TOPICAL Apply to affected area as needed. Lotion 0 Active Comment on above: Apply to affected ar ea as needed. Apply to affected ar ea as needed. Lotion magnesium oxide 500 mg oral capsule (20 sources) Start: 05-31-2025 Start: 09-04-2018 End: 03-26-2019 meclizine hydrochloride 25 mg oral tablet (20 sources) Antiemetic Start: 09-13-2023 meclizine (ANT IVERT) 25 mg tab meclizine hydrochloride 25 mg oral tablet (4 sources) Antiemetic Start: 09-13-2023 09/13/2023 Active Start: 09-13-2023 End: 01-20-2024 Comment on above: meclizine hydrochlor agustín 25 mg oral tablet (4 sources) Antiemetic Start: 09-13-2023 mecobalamin 1 mg chewable ta blet (3 sources) Start: 04-05-2025 microencapsulated potassium chloride 20 meq extended release oral tablet (20 sources) Start: 04-06-2025 Start: 02-18-2025 End: 04-06-2025 Start: 09-04-2018 End: 03-26-2019 12 hr ranolazine 500 mg extended release oral tablet (20 sources) Anti-anginal Start: 07-29-2024 take 1 tablet by mouth every twelve hours ranolazine ER (RANEXA) 500 mg 12 hr tablet Take 1 tablet by mouth every 12 hours. 07/29/2024 Active Start: 06-29-2024 End: 01-26-2025 spacer (20 sources) Start: 01-12-2021 spacer Active 0 .ROUTE .MEDSUPPLY January 12, 2021 1:35pm As directed Start: 01-12-2021 spacer Active 0 .ROUTE .MEDSUPPLY January 11, 2021 11:00pm As directed Start: 01-12-2021 spacer Active 0 .ROUTE .MEDSUPPLY January 12, 2021 12:00am As directed tamsulosin hydrochloride 0.4 mg oral capsule (20 sources) alpha-Adrenergic Wagner Start: 05-28-2024 Start: 04-22-2022 End: 05-30-2022 Comment on above: Take 0.4 mg by mouth once daily. ubidecarenone 100 mg oral ca psule (20 sources) Start: 05-03-2020 Comment on above: 100 mg. 100 mg once daily. Completed/Discontinued Medications Medication Drug Class(es) Dates Sig (Normalized) Sig (Original) acetaminophen 500 mg oral tablet (20 sources) Start: 03-19-2022 End: 05-06-2023 Start: 03-19-2022 End: 05-06-2023 take 3 g by mouth every eight hours Acetaminophen Discontinued 1000 MG PO Q8H 0 June 14, 2022 1:43pm May 06, 2023 12:13pm Not more than 3 g/day take 1 tablet by kathleen th every six hours as needed acetaminophen (TYLENOL) 500 mg tablet Take 500 mg by mouth every 6 hours as needed. Active take 1 tablet by kathleen th every eight hours as needed acetaminophen (TYLENOL) 500 mg tablet Take 500 mg by mouth every 8 hours as needed. 0 Active Comment on above: Take 500 mg by mouth every 8 hours as needed. 60 actuat aclidinium bromide 0.4 mg/actuat dry powder inhaler (20 sources) Start: 11-28-2014 End: 09-16-2017 albuterol 0.83 mg/ml inhalat ion solution (20 sources) beta2-Adrenergic Agonist Start: 11-27-2022 End: 01-01-2024 Start: 11-27-2022 End: 01-01-2024 Start: 11-27-2021 Albuterol Sulf ate (Ventolin Hfa) 90 mcg/actuation HFA aerosol inhaler Active 2 INH INHALATION Q4H November 27, 2021 9:54am Start: 11-01-2021 End: 11-01-2021 albuterol sulfate Discontinu ed 2.5 MG continuous nebulization ONCE 1 November 01, 2021 12:06pm November 01, 2021 2:38pm Start: 01-12-2021 End: 01-04-2025 Start: 01-12-2021 End: 01-01-2024 Start: 01-12-2021 End: 11-27-2021 Albuterol Sulfate (Ventolin Hfa) 90 mcg/actuation HFA aerosol inhaler Active 2 INH INHALATION Q4H November 27, 2021 8:54am Start: 09-12-2017 End: 02-06-2018 Start: 09-12-2017 End: 02-06-2018 Start: 09-12-2017 End: 02-06-2018 take 1 puff(s) by inhalation every four hours Albuterol Sulfate (Ventolin Hfa) 90 mcg/actuation HFA aerosol inhaler Discontinued 2 PUFF INHALATION Q4H September 12, 2017 12:00am February 06, 2018 2:50pm albuterol HFA (P ROVENTIL HFA, VENTOLIN HFA) 90 mcg/actuation inhaler Inhale 2 Puffs as instructed. Active Comment on above: Inhale 2 Puffs as in structed. albuterol 0.833 mg/ml / ipratropium bromide 0.167 mg/ml inhalation solution (20 sources) Anticholinergic, beta2-Adrenergic Agonist Start: 11-01-2021 End: 01-29-2025 Start: 11-01-2021 End: 08-03-2022 ipratropium-albuterol (DUONE B) 0.5 mg-3 mg(2.5 mg base)/3 mL nebu 4 TIMES DAILY NEEDED 11/01/2021 Active Start: 11-01-2021 End: 08-03-2022 Comment on above: 4 TIMES DAILY NEE DED amLODIPine 10 mg oral tablet (20 sources) Dihydropyridine Calcium Channel Wagner Start: 08-17-2022 End: 06-30-2024 Start: 08-03-2022 End: 08-17-2022 Comment on above: Take 10 mg by mouth once daily. amoxicillin 500 mg / clavulanate 125 mg oral tablet (20 sources) Penicillin-class Antibacterial Start: 05-19-2025 End: 05-31-2025 Start: 06-01-2024 End: 06-16-2024 Start: 04-10-2024 End: 04-13-2024 Start: 01-01-2024 End: 01-20-2024 Start: 01-01-2024 End: 01-20-2024 Start: 10-15-2023 End: 10-22-2023 Start: 10-15-2023 End: 10-22-2023 Start: 06-06-2022 End: 06-19-2022 Start: 06-06-2022 End: 06-19-2022 Start: 06-06-2022 End: 06-19-2022 take 1 tablet by mouth twice daily Amoxicillin-Pot Clavulanate Discontinued 1 TABLET PO TWICE A DAY June 14, 2022 1:43pm June 19, 2022 9:39am Start: 09-24-2019 End: 05-03-2020 Start: 09-24-2019 End: 05-03-2020 Start: 09-24-2019 End: 05-03-2020 take 1 tablet by mouth twice daily Amoxicillin-Pot Clavulanate (Augmentin) 875-125 mg tablet Discontinued 1 TABLET PO TWICE A DAY September 24, 2019 12:00am May 03, 2020 12:14pm apixaban 2.5 mg oral tablet (20 sources) Factor Xa Inhibitor Start: 12-12-2023 End: 12-14-2024 Comment on above: Take 1 tablet by kathleen th every 12 hours. ascorbic acid 500 mg oral tablet (20 sources) Vitamin C Start: 11-28-2014 End: 05-04-2025 Comment on above: Take 500 mg by mouth once daily. aspirin 81 mg delayed releas e oral tablet (20 sources) Platelet Aggregation Inhibitor, Nonsteroidal Anti-inflammatory Drug Start: 02-18-2025 End: 03-12-2025 Start: 06-28-2024 End: 02-15-2025 Start: 03-28-2014 End: 02-12-2024 Start: 03-28-2014 End: 02-12-2024 Start: 03-28-2014 End: 05-30-2022 take 81 mg by mouth at bedtime Aspirin Active 81 MG PO AT BEDTIME May 30, 2022 8:35am Start: 01-23-2012 End: 09-24-2024 take 1 tablet by mouth once daily at mealtime Aspirin 81 mg ORAL Tab Indications: Coronary atherosclerosis of unspecified type of vessel, [place] or graft Take 1 tablet by mouth once daily. Take with food. 30 tablet 11 01/23/2012 06/30/2024 Discontinued Comment on above: Take 1 tablet by kathleen th once daily. Take with food. atorvastatin 40 mg oral tablet (20 sources) HMG-CoA Reductase Inhibitor Start: 04-10-2016 End: 04-05-2025 Comment on above: Take 1 tablet by kathleen th every other day. At bedtime for cholesterol. azithromycin 250 mg oral tablet (20 sources) Macrolide Antimicrobial Start: 12-25-2023 End: 06-30-2024 azithromycin (ZITHROMAX) 250 mg tablet 12/25/2023 06/30/2024 Discontinued Start: 12-25-2023 End: 01-01-2024 Start: 12-25-2023 End: 01-01-2024 calcium ascorbate 500 mg ora l tablet (20 sources) Start: 05-03-2020 End: 02-04-2025 cefdinir 300 mg oral capsule (20 sources) Cephalosporin Antibacterial Start: 09-26-2019 End: 05-03-2020 cefuroxime 500 mg oral table t (20 sources) Cephalosporin Antibacterial Start: 01-17-2022 End: 01-17-2022 Start: 01-17-2022 End: 01-25-2022 cephalexin 500 mg oral capsu le (20 sources) Cephalosporin Antibacterial Start: 03-09-2025 End: 03-19-2025 Start: 04-23-2024 End: 05-01-2024 Start: 04-22-2022 End: 05-02-2022 Start: 03-07-2022 End: 03-19-2022 Start: 03-07-2022 End: 03-19-2022 take 500 mg by mouth twice daily Cephalexin Discontinued 500 MG PO TWICE A DAY March 09, 2022 4:12pm March 19, 2022 6:37pm Start: 01-04-2022 End: 01-25-2022 Start: 01-04-2022 End: 01-25-2022 take 500 mg by mouth twice daily Cephalexin Discontinued 500 MG PO TWICE A DAY January 03, 2022 11:00pm January 25, 2022 12:34pm clopidogrel 75 mg oral tablet (20 sources) [id number] Platelet Inhibitor Start: 09-12-2023 Clopidogrel Active Zak Thompson September 12, 2023 12:00am Start: 09-06-2023 End: 06-30-2024 Start: 09-19-2019 End: 09-20-2019 Start: 03-28-2014 End: 04-16-2019 Comment on above: Take 1 tablet by kathleen th once daily. COQ10, LIPOSOMAL UBIQUINOL, ORAL (20 sources) take 1 tablet by mouth once daily COQ10, LIPOSOMAL UBIQUINOL, ORAL Take 1 tablet by mouth once daily. 0 Active Comment on above: Take 1 tablet by kathleen th once daily. dapagliflozin 10 mg oral tablet (20 sources) Sodium-Glucose Cotransporter 2 Inhibitor Start: 06-05-20 End: 06-30-20 Comment on above: Take 10 mg by mouth daily with breakfast. 12 hr dextromethorphan hydrobromide 60 mg / guaiFENesin 1200 mg extended release oral tablet (20 sources) Uncompetitive C-nvpobw-C-aspartate Receptor Antagonist, Sigma-1 Agonist Start: 04-05-20 End: 05-31-20 Start: 02-22-2025 End: 04-05-2025 Start: 06-14-2022 End: 06-19-2022 Start: 06-14-2022 End: 06-19-2022 Start: 06-14-2022 End: 06-19-2022 take 1 tablet by mouth twice daily Dextromethorphan-Guaifenesin (Mucinex Dm) 30-600 mg Tablet Extended Release 12 Hr Discontinued 1 TABLET PO TWICE A DAY June 13, 2022 11:00pm June 19, 2022 9:37am take 5 mL by mouth e very four hours as needed dextromethorphan-guaiFENesin (MICKEY-TUSSIN DM) 10-100 mg/5 mL oral liquid Take 5 mL by mouth every 4 hours as needed (cough). Active docusate sodium 100 mg oral capsule (20 sources) Start: 12-14-2024 End: 01-29-2025 Start: 05-06-2023 End: 09-13-2023 Start: 03-28-2022 take 1 capsule by [facility] twice daily for constipation docusate sodium (COLACE) 100 mg capsule Indications: Chronic idiopathic constipation Take 1 capsule by mouth twice daily. For constipation. 180 capsule 1 03/28/2022 Active End: 05-04-2025 take 1 capsule by mouth once daily as needed for constipation docusate sodium (COLACE) 100 mg capsule Take 100 mg by mouth once daily as needed for constipation. 05/04/2025 Discontinued take 100 mg by mouth twice daily DOCUSATE SODIUM ORAL Take 100 mg by mouth twice daily. 0 Active Comment on above: Take 1 capsule by [facility] twice daily. For constipation. Take 100 mg by mouth twice daily. docusate sodium 50 mg / sennosides, mcc 8.6 mg oral tablet (20 sources) Start: 01-29-2024 End: 05-01-2024 Start: 01-29-2024 Start: 11-15-2023 End: 05-04-2025 take 1 tablet by mouth twice daily senna-docusate (SENNA-S) 8.6-50 mg per tablet Take 1 tablet by mouth two times a day. 11/15/2023 05/04/2025 Discontinued Start: 06-14-2022 End: 08-03-2022 Start: 06-14-2022 End: 08-03-2022 Start: 06-14-2022 End: 08-03-2022 take 2 tablets by mouth twice daily Sennosides-Docusate Sodium (Stool Softener-Stimulant Laxat) 8.6-50 mg Tablet Discontinued 2 TABLET PO TWICE A DAY 0 June 13, 2022 11:00pm August 03, 2022 12:42pm Comment on above: Take 1 tablet by [facility] two times a day. doxycycline hyclate 100 mg o ral tablet (20 sources) Tetracycline-class Drug Start: 10-15-2023 End: 10-22-2023 Start: 09-24-2019 End: 09-24-2019 Fluad Quad (65yr up)(PF) 60 mcg (15 mcg x 4)/0.5mL IM syringe (flu vac (5 sources) Start: 06-28-2021 End: 06-28-2021 Fluad Quad (65yr up)(PF) 60 mcg (15 mcg x 4)/0.5mL IM syringe (flu vac Discontinued 60 MCG IM ONCE 0.5 June 28, 2021 10:40am June 28, 2021 11:28am furosemide 40 mg oral tablet (20 sources) Loop Diuretic Start: 03-04-2025 End: 03-04-2025 Start: 02-22-2025 End: 04-27-2025 Start: 02-15-2025 End: 02-18-2025 Start: 05-22-2022 End: 12-17-2024 Start: 11-01-2021 End: 01-25-2022 Start: 12-11-2018 End: 03-26-2019 Start: 03-28-2014 End: 09-04-2018 take 2 tablets by mo ut twice daily in the morning, then take 1 tablet by mouth in the evening furosemide (LASIX) 40 mg tablet Take by mouth two times a day. Patient takes 80mg in the AM and 40mg in the evening Active End: 05-04-2025 take 2 tablets by mouth once daily in the evening furosemide (LASIX) 40 mg tablet Take 80 mg by mouth daily at 6 pm. 05/04/2025 Discontinued take 1 tablet by kathleen once daily furosemide (LASIX) 80 mg tablet Take 80 mg by mouth once daily. Active Comment on above: Take 40 mg by mouth once daily. glucosamine hydrochloride 1500 mg oral tablet (20 sources) Start: 01-27-2018 End: 01-28-2019 handicap placcard (20 sources) Start: 09-28-2019 End: 05-03-2020 handicap placcard Discontinued September 28, 2019 1:07pm May 03, 2020 1:15pm lifetime: debility Start: 09-28-2019 handicap placc tisha Active 1 September 28, 2019 1:05pm Lifetime: debility Start: 09-28-2019 handicap placc tisha Active 1 September 28, 2019 12:00am Lifetime: debility Start: 09-28-2019 End: 05-03-2020 handicap placcard Discontinu ed September 28, 2019 12:00am May 03, 2020 12:15pm lifetime: debility Start: 09-28-2019 handicap placc tisha Active 1 September 28, 2019 1:00am Lifetime: debility Start: 09-28-2019 End: 05-03-2020 handicap placcard Discontinu ed 1 September 28, 2019 1:00am May 03, 2020 1:15pm lifetime: debility hydrALAZINE hydrochloride 10 0 mg oral tablet (20 sources) Arteriolar Vasodilator Start: 05-22-2022 End: 05-24-2025 Start: 05-22-2022 End: 11-06-2023 Start: 05-16-2022 End: 05-22-2022 Start: 03-28-2022 End: 05-25-2022 take 1 tablet by mouth twice daily hydrALAZINE (APRESOLINE) 50 mg tablet Indications: Essential hypertension Take 1 tablet by mouth twice daily. 180 tablet 1 03/28/2022 05/25/2022 Discontinued Start: 09-20-2019 End: 05-16-2022 Start: 09-20-2019 End: 05-16-2022 take 50 mg by mouth twice daily Hydralazine Discontinu ed 50 MG PO TWICE A DAY November 03, 2020 9:58am May 11, 2022 12:31pm Start: 09-20-2019 End: 05-16-2022 take 50 mg by mouth three times daily Hydralazine Discontinued 50 MG PO THREE TIMES A DAY May 11, 2022 12:31pm May 16, 2022 9:34am Start: 09-20-2019 End: 05-16-2022 Comment on above: Take 1 tablet by kathleen th three times daily. Take 1 tablet by kathleen th twice daily. Take 1 tablet by kathleen th three times daily. Dr. Pierre. Take 100 mg by mouth two times a day. Dr. Pierre. hydroCHLOROthiazide 25 mg or al tablet (20 sources) Thiazide Diuretic Start: 03-26-2019 End: 05-25-2022 Comment on above: Take 25 mg by mouth once daily. ibuprofen 200 mg oral tablet (20 sources) Nonsteroidal Anti-inflammatory Drug Start: 05-06-2023 End: 09-13-2023 Start: 02-06-2018 End: 03-26-2019 Start: 02-06-2018 End: 03-26-2019 take 600 mg by mouth once Ibuprofen Discontinued 600 M G PO ONCE February 05, 2018 11:00pm March 26, 2019 2:18pm Comment on above: Take 200 mg by mouth every 6 hours as needed. 3 ml insulin aspart, human 100 unt/ml cartridge (20 sources) Insulin Analog Start: 10-06-2024 End: 05-31-2025 insulin glargine-yfgn (SEMGLEE,INSULIN GLARG-YFGN,PEN) 100 unit/mL (3 mL) insulin pen (4 sources) End: 05-04-2025 insulin glargine-yfgn (SEMGLEE,INSULIN GLARG-YFGN,PEN) 100 unit/mL (3 mL) insulin pen Inject 22 Units subcutaneously daily at bedtime. 05/04/2025 Discontinued insulin glargine -yfgn (SEMGLEE,INSULIN GLARG-YFGN,PEN) 100 unit/mL (3 mL) insulin pen Inject 22 Units subcutaneously daily at bedtime. Active 3 ml insulin lispro 100 unt/ ml pen injector (20 sources) Insulin Analog Start: 01-29-2024 End: 10-06-2024 Start: 06-14-2022 End: 08-03-2022 Start: 06-14-2022 End: 08-03-2022 Insulin Lispro (Humalog Kwik pen Insulin) 100 unit/mL Insulin Pen Discontinued 10 UNIT SC THREE TIMES DAILY BEFORE MEALS June 13, 2022 11:00pm August 03, 2022 12:41pm End: 05-04-2025 inject 10 [IU] by subcutaneous injection three times daily before mealtime insulin lispro (HUMALOG KWIKPEN INSULIN) 100 unit/mL Inject 10 Units subcutaneously three times a day before meals. 05/04/2025 Discontinued 24 hr isosorbide mononitrate 30 mg extended release oral tablet (20 sources) Nitrate Vasodilator Start: 03-28-2014 End: 08-24-2024 Start: 03-28-2014 End: 05-22-2022 take 30 mg by mouth twice daily Isosorbide Mononitrate Discontinued 30 MG PO TWICE A DAY 60 May 15, 2022 11:00pm May 22, 2022 8:03am Comment on above: Take 1 tablet by kathleen th once daily. iv contrast (will be provided with radiology test) (5 sources) Start: 2022 inject 1 dose intravenously once iv contrast (will be provided with radiology [...] in the CT contrast administration guidelines link. 1 Each 0 05/21/2023 Active Comment on above: CTA ABD/PEL LE - No IV access, insert saline lock prior to the sedation, infusion, injection for imaging exam. Discontinue saline lock post exam. If Pt. has a central line or IVAD, may access for administration according to line specific nursing protocol. Once exam is complete flush line and de-access according to line specific nursing protocol in the CT contrast administration guidelines link. ketoconazole 20 mg/ml topical cream (6 sources) Azole Antifungal Start: 2023 End: 2024 ketoconazole (NIZORAL) 2 % cream Apply a small amount of cream to the affected area twice a day 07/23/2024 05/04/2025 Discontinued lactulose 667 mg/ml oral solution (20 sources) Osmotic Laxative Start: 2023 End: 2024 take 20 g by mouth e very twelve hours as needed lactulose 20 gram/30 mL solution Take 20 g by mouth two times a day as needed (constpation). Active linezolid 600 mg oral tablet (15 sources) Oxazolidinone Antibacterial Start: 04-13-2024 End: 04-23-2024 loratadine 10 mg oral tablet (20 sources) Start: 01-29-2025 End: 04-05-2025 Start: 05-30-2022 End: 01-06-2025 Start: 03-04-2018 End: 05-04-2025 Comment on above: Take by mouth. Take by mouth once d aily. losartan potassium 25 mg ora l tablet (20 sources) Angiotensin 2 Receptor Wagner Start: 03-04-2025 End: 03-04-2025 Start: 02-18-2025 End: 02-22-2025 Start: 03-28-2014 End: 09-20-2019 metFORMIN hydrochloride 850 mg oral tablet (20 sources) Biguanide Start: 08-03-2022 End: 06-05-2023 Start: 01-25-2022 End: 06-19-2022 Start: 01-25-2022 End: 06-19-2022 Metformin Discontinued 850 M G PO TWICE A DAY May 30, 2022 8:37am June 19, 2022 10:07am On Hold: Hold for 7 days. Monitor kidney function and discontinue if creatinine clearance less than 30 mill per minute Start: 01-19-2022 End: 02-26-2024 take 1 tablet by mouth twice daily at mealtime metFORMIN (GLUCOPHAGE) 850 mg tablet Indications: Well controlled type 2 diabetes mellitus with neurological manifestations (HCC) Take 1 tablet by mouth twice daily with meals. 180 tablet 1 01/19/2022 02/26/2024 Discontinued Start: 12-13-2021 take 1 tablet by kathleen th twice daily at mealtime metFORMIN (GLUCOPHAGE) 850 mg tablet Indications: Well controlled type 2 diabetes mellitus with neurological manifestations (HCC) Take 1 tablet by mouth twice daily with meals. 180 tablet 1 12/13/2021 Active Start: 03-28-2014 End: 01-25-2022 Comment on above: Take 1 tablet by kathleen th twice daily with meals. metOLazone 2.5 mg oral table t (20 sources) Thiazide-like Diuretic Start: 02-12-2024 End: 03-23-2024 Start: 02-12-2024 Miscellaneous Medical Supply (20 sources) Start: 01-23-2021 Miscellaneous Medical Supply Power scooter Dx: Z74.90, R26.89, I73.9, J44.1, M54.5, G89.29 1 Each 0 01/23/2021 Active Comment on above: Power scooter Dx: Z7 4.90, R26.89, I73.9, J44.1, M54.5, G89.29 montelukast 10 mg oral tablet (20 sources) Leukotriene Receptor Antagonist Start: 02-06-2018 End: 05-21-2025 Comment on above: TAKE 1 TABLET BY KATHLEEN TH DAILY AT BEDTIME. FOR NASAL ALLERGIES. Gjxyhy-Dvegwqt-Hnf Palm-Min 17 (PROSTATE THERAPY) cap (20 sources) Start: 12-26-2020 take 2 capsules by mouth once daily Gctbkr-Qmtqqpn-Ktz Palm-Min 17 (PROSTATE THERAPY) cap Indications: BPH associated with nocturia Take 2 Each by mouth once daily. SUPER BETA PROSTATE. 0 12/26/2020 Active Comment on above: Take 2 Each by mouth once daily. SUPER BETA PROSTATE. 24 hr NIFEdipine 90 mg extended release oral tablet (20 sources) Dihydropyridine Calcium Channel Wagner Start: 12-29-2008 End: 05-25-2022 Comment on above: take one tablet jaswinder y nitrofurantoin, macrocrystals 25 mg / nitrofurantoin, monohydrate 75 mg oral capsule (15 sources) Nitrofuran Antibacterial Start: 04-07-2024 End: 04-10-2024 nitroglycerin 0.4 mg sublingual tablet (20 sources) Nitrate Vasodilator Start: 02-06-2018 End: 06-08-2022 Nitroglycerin (Nitrostat) 0.4 mg tablet, sublingual Discontinued 0.4 MG SL every 5 to 15 minutes November 01, 2021 2:47pm June 08, 2022 7:23am Start: 11-28-2015 End: 02-15-2025 Start: 11-28-2014 End: 02-06-2018 Start: 11-28-2014 End: 02-06-2018 Start: 11-28-2014 End: 02-06-2018 Nitroglycerin Discontinued 0 .3 MG SL DIRECTED November 28, 2014 12:00am February 06, 2018 2:47pm Comment on above: Dissolve 1 tablet un micheal the tongue every 5 minutes as needed for Chest Pain. nystatin [id number] unt/ml topic al cream (18 sources) Polyene Antifungal Start: 02-06-2024 End: 03-23-2024 Start: 02-06-2024 pantoprazole 40 mg delayed release oral tablet (20 sources) Proton Pump Inhibitor Start: 03-28-2014 End: 03-12-2025 Comment on above: TAKE 1 TABLET BY KATHLEEN TH DAILY BEFORE BREAKFAST. TAKE ON EMPTY STOMACH, 1/2 HR BEFORE MEAL. polyethylene glycol 3350 22164 mg powder for oral solution (20 sources) Osmotic Laxative Start: 06-14-2022 End: 08-03-2022 polyethylene glycol 3350 826989 mg / potassium chloride 2970 mg / sodium bicarbonate 6740 mg / sodium chloride 5860 mg / sodium sulfate 65063 mg powder for oral solution (20 sources) Osmotic Laxative Start: 04-26-2022 peg 3350-Elec trolytes (GOLYTELY) 236-22.74-6.74 -5.86 gram suspension Indications: Chronic idiopathic constipation , Altered bowel habits Refer to printed prep instructions from your provider. 4000 mL 0 04/26/2022 Active Comment on above: Refer to printed pre p instructions from your provider. Drink half the jug 1 st night (2L) half the jug the second night predniSONE 20 mg oral tablet (20 sources) Start: 02-22-2025 End: 05-04-2025 Start: 12-17-2024 End: 12-28-2024 Start: 01-29-2024 End: 03-23-2024 Start: 01-01-2024 End: 01-20-2024 Start: 12-25-2023 End: 02-26-2024 predniSONE (DELTASONE) 20 mg tablet Start: 12-25-2023 End: 01-01-2024 Start: 10-23-2023 End: 12-12-2023 Start: 06-14-2022 End: 06-19-2022 Start: 06-14-2022 End: 06-19-2022 Start: 11-01-2021 End: 01-25-2022 Start: 11-01-2021 End: 01-25-2022 Start: 09-16-2019 End: 05-03-2020 rOPINIRole 1 mg oral tablet (20 sources) Nonergot Dopamine Agonist Start: 03-23-2024 End: 04-05-2025 Start: 10-18-2022 End: 01-20-2024 Start: 10-18-2022 End: 01-20-2024 Start: 10-18-2022 take 1 mg by mouth at bedtime Ropinirole Active 1 MG PO AT BEDTIME 60 October 18, 2022 12:00am administer 1-3 hours before bedtime Start: 05-25-2022 take 2 tablets by mo ut every twenty-four hours as needed rOPINIRole (REQUIP) 0.5 mg tablet Take 1 mg by mouth at bedtime as needed. Dr. Rivero 05/25/2022 Active Start: 10-06-2018 End: 10-18-2022 Comment on above: Take 0.5 mg by mouth three times daily. Take 1-3 tablets by mouth at bedtime as needed. Dr. Rivero rosuvastatin calcium 20 mg o ral tablet (20 sources) HMG-CoA Reductase Inhibitor Start: 03-28-2014 End: 09-14-2017 Start: 03-28-2014 End: 09-14-2017 take 40 mg by mouth at bedtime Rosuvastatin Discontinu ed 40 MG PO AT BEDTIME November 28, 2014 6:33pm September 14, 2017 1:34pm SEMGLEE,INSULIN GLARG-YFGN,P EN 100 unit/mL (3 mL) insulin pen (18 sources) Start: 07-18-2023 End: 05-04-2025 SEMGLEE,INSULIN GLARG-YFGN,P EN 100 unit/mL (3 mL) insulin pen Inject 22 Units subcutaneously daily at bedtime. 07/18/2023 05/04/2025 Discontinued Start: 07-18-2023 SEMGLEE,INSULI N GLARG-YFGN,PEN 100 unit/mL (3 mL) insulin pen Inject 22 Units subcutaneously daily at bedtime. 07/18/2023 Active Start: 07-18-2023 SEMGLEE,INSULI N GLARG-YFGN,PEN 100 unit/mL (3 mL) insulin pen 07/18/2023 Active Start: 07-18-2023 SEMGLEE,INSULI N GLARG-YFGN,PEN 100 unit/mL (3 mL) insulin pen Start: 07-18-2023 SEMGLEE,INSULI N GLARG-YFGN,PEN 100 unit/mL (3 mL) insulin pen INJECT 15 units SUBCUTANEOUSLY EVERY DAY IN THE MORNING 0 07/18/2023 Active Comment on above: INJECT 15 units SUBC UTANEOUSLY EVERY DAY IN THE MORNING 1000 ml sodium chloride 9 mg/ml injection (1 source) Start: 03-05-2024 End: 03-05-2024 NaCl 0.9% iv infusion spironolactone 25 mg oral tablet (20 sources) Aldosterone Antagonist Start: 09-12-2023 End: 01-20-2024 Start: 06-14-2022 End: 05-07-2023 Start: 06-14-2022 End: 11-08-2022 take 12.5 mg by mouth once daily Spironolactone Discontinued 12.5 MG PO DAILY 45 August 08, 2022 9:57am February 2nd, 2023 4:20pm Comment on above: Take 25 mg by mouth once daily. torsemide 20 mg oral tablet (20 sources) Loop Diuretic Start: 12-17-19 End: 05-04-20 triamcinolone acetonide 0.055 mg/actuat metered dose nasal spray (20 sources) Corticosteroid Start: 05-03-20 End: 01-26-20 take 1 spray(s) nasal route once daily Triamcinolone Acetonide Discontinued 2 SPRAY INTRANASAL DAILY May 02, 2020 11:00pm January 25, 2022 12:32pm administer into each nostril Start: 09-04-2018 End: 09-13-2023 Start: 09-04-2018 End: 09-13-2023 Triamcinolone Acetonide (Jay acort) 55 mcg aerosol,spray Discontinued 2 SPRAY INTRANASAL DAILY November 06, 2022 2:51pm September 13, 2023 1:28pm Start: 11-28-2014 End: 02-06-2018 Start: 11-28-2014 End: 02-06-2018 Triamcinolone Acetonide Disc ontinued 2 SPRAY INTRANASAL DAILY September 12, 2017 8:06am February 06, 2018 2:52pm Comment on above: Use 2 Sprays in the nose once daily. vitamin b12 0.5 mg oral tabl et (20 sources) Vitamin B12 Start: 11-28-2014 End: 09-16-2017 take 1 tablet by mouth once jaswinder y cyanocobalamin (VITAMIN B-12) 1,000 mcg tab Take 1,000 mcg by mouth once daily. Active (20 sources) Start: 04-05-2025 End: 04-27-2025 Start: 03-29-2025 Start: 03-24-2025 Start: 03-12-2025 Start: 02-18-2025 End: 03-29-2025 Start: 02-18-2025 Start: 02-15-2025 End: 03-24-2025 Start: 02-15-2025 Start: 02-10-2025 End: 03-12-2025 Start: 02-10-2025 Start: 02-04-2025 End: 02-18-2025 Start: 02-04-2025 Start: 02-01-2025 End: 02-10-2025 Start: 02-01-2025 Start: 01-29-2025 End: 02-04-2025 Start: 01-29-2025 Start: 01-13-2025 End: 02-15-2025 Start: 01-13-2025 Start: 12-21-2024 Start: 10-23-2024 End: 01-13-2025 Start: 10-23-2024 Start: 10-12-2024 Start: 10-05-2024 End: 12-14-2024 Start: 09-16-2024 End: 02-04-2025 Start: 09-16-2024 Start: 09-08-2024 End: 10-23-2024 Start: 08-03-2024 End: 12-21-2024 Start: 08-03-2024 Start: 07-13-2024 End: 10-05-2024 Start: 07-06-2024 End: 09-08-2024 Start: 06-29-2024 End: 07-13-2024 Start: 05-25-2024 End: 08-03-2024 Start: 05-06-2024 End: 07-06-2024 Start: 05-01-2024 End: 09-16-2024 Start: 04-16-2024 End: 05-01-2024 Start: 04-07-2024 End: 05-25-2024 Start: 04-06-2024 End: 04-07-2024 Start: 03-31-2024 End: 05-06-2024 Start: 02-10-2024 End: 06-29-2024 Start: 02-10-2024 Start: 01-15-2024 End: 03-31-2024 Start: 01-15-2024 Start: 01-02-2024 End: 03-23-2024 Start: 01-02-2024 Start: 12-16-2023 End: 02-10-2024 Start: 12-16-2023 Start: 10-23-2023 End: 12-26-2023 Start: 10-23-2023 Start: 09-16-2023 End: 04-06-2024 Start: 09-16-2023 Start: 09-16-2023 End: 01-15-2024 Start: 09-16-2023 Start: 07-18-2023 Start: 05-16-2023 End: 09-16-2023 Start: 05-16-2023 Start: 05-16-2023 End: 07-18-2023 Start: 07-11-2022 End: 05-16-2023 Start: 07-11-2022 Start: 07-11-2022 End: 07-11-2022 Start: 01-12-2021 Start: 09-28-2019 Start: 09-28-2019 End: 05-03-2020 Problems Active Problems Problem Classification Problem Date Documented Da te Episodic/Chronic Acute and unspecified renal failure (20 sources) Injury of kidney; Translations: [Acute kidney failure, unspecified] Onset: 5 04-30-2020 Episodic Administrative/social admission (4 sources) Persons encountering health services in other specified circumstances; Translations: [Other reasons for seeking consultation] Episodic Aortic and peripheral arterial embolism or thrombosis (19 sources) Femoral artery thrombosis; 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] Onset: 4 11-09-2023 Chronic Aortic; peripheral; and visceral artery aneurysms (20 sources) Abdominal aortic aneurysm; Translations: [Abdominal aortic aneurysm, without rupture] Onset: 5 Resolved: 9 Chronic Asthma (20 sources) Asthma-chronic obstructive pulmonary disease overlap syndrome; Translations: [Asthma-chronic obstructive pulmonary disease overlap syndrome] 11-01-2022 Chronic Calculus of urinary tract (20 sources) Kidney stone; Translations: [Calculus of kidney] Episodic Cardiac dysrhythmias (20 sources) Atrial fibrillation; Translations: [Unspecified atrial fibrillation] Onset: 5 12-12-2023 Chronic Chronic kidney disease (20 sources) Chronic kidney disease stage 3; Translations: [CKD (chronic kidney disease) stage 3, GFR 30-59 ml/min] Onset: 8 06-03-2019 Chronic Chronic kidney disease (2 sources) Chronic kidney disease; Translations: [Stage 3a chronic kidney disease (HCC)] Onset: 9 Chronic obstructive pulmonary disease and bronchiectasis (20 sources) Acute exacerbation of chronic obstructive airways disease; Translations: [Chronic obstructive pulmonary disease with (acute) exacerbation] Onset: 6 10-16-2017 Chronic Conditions associated with dizziness or vertigo (20 sources) Lightheadedness; Translations: [Dizziness and giddiness] Episodic Congestive heart failure; nonhypertensive (20 sources) Congestive heart failure; Translations: [Heart failure, unspecified] Onset: 2 Chronic Coronary atherosclerosis and other heart disease (20 sources) Coronary atherosclerosis; Translations: [Atherosclerotic heart disease of [place] coronary artery without angina pectoris] Onset: 5 08-06-2018 Chronic Deficiency and other anemia (20 sources) Anemia; Translations: [Anemia, unspecified] Onset: 5 08-10-2018 Episodic Deficiency and other anemia (20 sources) Anemia, unspecified; Translations: [Anemia, unspecified] Onset: 8 Episodic Deficiency and other anemia (20 sources) Chronic anemia; Translations: [Anemia, unspecified] 12-10-2023 Episodic Diabetes mellitus with complications (20 sources) Type 2 diabetes mellitus; Translations: [Type 2 diabetes mellitus with other diabetic neurological complication] Onset: 1 Resolved: 8 08-06-2018 Chronic Diabetes mellitus without complication (20 sources) Diabetes mellitus; Translations: [Type 2 diabetes mellitus without complications] Onset: 1 Resolved: Chronic Diseases of white blood cells (20 sources) Leukocytosis; Translations: [Elevated white blood cell count, unspecified] Onset: 5 02-15-2025 Chronic Disorders of lipid metabolism (20 sources) Hyperlipidemia; Translations: [Hyperlipidemia, unspecified] Onset: 5 08-10-2018 Chronic E Codes: Fall (11 sources) Fall; Translations: [Unspecified fall, initial encounter] 12-28-2024 Episodic Esophageal disorders (20 sources) Gastroesophageal reflux disease; Translations: [Gastro-esophageal reflux disease without esophagitis] Chronic Essential hypertension (20 sources) Essential hypertension; Translations: [Essential (primary) hypertension] Onset: 5 08-10-2018 Chronic Fluid and electrolyte disorders (20 sources) Hyponatremia; Translations: [Hypo-osmolality and hyponatremia] 05-01-2024 Episodic Genitourinary symptoms and ill-defined conditions (20 sources) Retention of urine; Translations: [Retention of urine, unspecified] Episodic Heart valve disorders (20 sources) Mitral valve disorder; 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, unspecified] Onset: 5 08-10-2018 Chronic Hyperplasia of prostate (20 sources) Nocturia due to benign prostatic hypertrophy; Translations: [Benign prostatic hyperplasia with lower urinary tract symptoms] Onset: 5 04-15-2017 Chronic Hypertension with complications and secondary hypertension (20 sources) Hypertensive urgency ; Translations: [Hypertensive urgency] Onset: 5 Chronic Immunizations and screening for infectious disease (1 source) Immunization due; Translations: [Encounter for immunization] 08-24-2024 Episodic Influenza (11 sources) Influenza due to Influenza A virus; Translations: [Influenza due to other identified influenza virus with other respiratory manifestations] 12-28-2024 Episodic Mycoses (13 sources) Onychomycosis; Translations: [Tinea unguium] Onset: 5 Episodic Nausea and vomiting (20 sources) Nausea and vomiting; Translations: [Nausea with vomiting, unspecified] Episodic Nutritional deficiencies (20 sources) Vitamin D deficiency; Translations: [Vitamin D deficiency, unspecified] Onset: 4 02-03-2014 Chronic Other aftercare (20 sources) Encounter for follow-up examination after completed treatment for conditions other than malignant neoplasm; Translations: [Other follow-up examination] 09-16-2023 Episodic Other aftercare (20 sources) Post-discharge follow-up; Translations: [Encounter for follow-up examination after completed treatment for conditions other than malignant neoplasm] 12-12-2023 Episodic Other aftercare (20 sources) Long-term current use of anticoagulant; 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] 06-28-2024 Episodic Other aftercare (1 source) retirement (current) use of insulin; Translations: [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] Onset: 5 Episodic Other aftercare (1 source) 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; Translations: [retirement (current) use of anticoagulants] Onset: 5 Episodic Other and unspecified benign neoplasm (20 sources) Polyp of colon; Translations: [Polyp of colon] Onset: 0 Resolved: 8 06-07-2022 Episodic Other and unspecified benign neoplasm (1 source) Polyp of colon; Translations: [Benign neoplasm of colon] Episodic Other circulatory disease (20 sources) History of arterial bypass of lower limb artery; Translations: [Presence of other vascular implants and grafts] Onset: 8 08-07-2018 Chronic Other circulatory disease (20 sources) Elevated blood pressure; Translations: [Elevated blood-pressure reading, without diagnosis of hypertension] 06-20-2022 Episodic Other circulatory disease (8 sources) Elevated blood-pressure reading, without diagnosis of hypertension; Translations: [Elevated blood pressure reading without diagnosis of hypertension] Episodic Other circulatory disease (20 sources) H/O: heart disorder; Translations: [Personal history of other diseases of the circulatory system] Onset: 11-11-2023 Episodic Other circulatory disease (20 sources) Carotid bruit; Translations: [Other specified symptoms and signs involving the circulatory and respiratory systems] 02-04-2025 Episodic Other connective tissue disease (20 sources) Swelling of right lower limb; Translations: [Other specified soft tissue disorders] 11-01-2022 Episodic Other connective tissue disease (20 sources) Patellar bursitis of right knee; Translations: [Other bursitis of knee, right knee] 06-20-2022 Episodic Other connective tissue disease (12 sources) Pain of toe of right foot; Translations: [Pain in right toe(s)] Episodic Other connective tissue disease (12 sources) Pain of toe of left foot; Translations: [Pain in left toe(s)] Episodic Other connective tissue disease (1 source) Swelling of lower limb; Translations: [Other specified soft tissue disorders] 08-21-2023 Episodic Other connective tissue disease (20 sources) Recurrent falls ; Translations: [Repeated falls] Episodic Other connective tissue disease (1 source) Pain in right toe(s); Translations: [Pain in toe of right foot] Onset: 5 Episodic Other connective tissue disease (1 source) Pain in left toe(s); Translations: [Pain in toe of left foot] Onset: 5 Episodic Other connective tissue disease (6 sources) Trigger thumb of left hand; Translations: [Trigger thumb, left thumb] 05-03-2025 Episodic Other connective tissue disease (2 sources) Repeated falls; Translations: [Repeated falls] Onset: 5 Episodic Other gastrointestinal disorders (20 sources) Chronic idiopathic constipation; Translations: [Chronic idiopathic constipation] Onset: 2 Chronic Other gastrointestinal disorders (20 sources) Constipation; Translations: [Constipation, unspecified] 04-06-2022 Episodic Other gastrointestinal disorders (5 sources) Alteration in bowel elimination; Translations: [Change in bowel habit] Episodic Other gastrointestinal disorders (20 sources) Chronic constipation; Translations: [Other constipation] 05-24-2022 Episodic Other gastrointestinal disorders (3 sources) Other constipation; Translations: [Constipation, unspecified] Episodic Other gastrointestinal disorders (20 sources) Mass of colon; Translations: [Other specified diseases of intestine] 06-22-2022 Episodic Other gastrointestinal disorders (12 sources) Other specified diseases of intestine; Translations: [Other specified disorders of intestine] Onset: 4 Episodic Other gastrointestinal disorders (20 sources) Acute constipation; Translations: [Constipation, unspecified] 12-25-2023 Episodic Other gastrointestinal disorders (6 sources) Constipation, unspecified; Translations: [Constipation, unspecified] 01-20-2024 Episodic Other hereditary and degenerative nervous system conditions (20 sources) Restless legs; Translations: [Restless legs syndrome] 11-23-2019 Chronic Other hereditary and degenerative nervous system conditions (20 sources) Restless legs syndrome; Translations: [Restless legs syndrome (RLS)] Onset: 5 Chronic Other inflammatory condition of skin (1 source) Pruritus, unspecified; Translations: [Unspecified pruritic disorder] 01-17-2023 Episodic Other lower respiratory disease (20 sources) Pulmonary edema; Translations: [Chronic pulmonary edema] 05-24-2022 Chronic Other lower respiratory disease (12 sources) Chronic pulmonary edema; Translations: [Pulmonary congestion and hypostasis] Chronic Other lower respiratory disease (1 source) Chronic pulmonary edema; Translations: [Chronic pulmonary edema] Chronic Other lower respiratory disease (20 sources) Dyspnea on exertion; Translations: [Dyspnea, unspecified] 06-07-2022 Episodic Other lower respiratory disease (20 sources) Dyspnea; Translations: [Shortness of breath] Onset: 9 Resolved: 9 06-20-2022 Episodic Other lower respiratory disease (20 sources) Dyspnea, unspecified; Translations: [Other respiratory abnormalities] Episodic Other lower respiratory disease (20 sources) Other forms of dyspnea; Translations: [Other respiratory abnormalities] Onset: Episodic Other lower respiratory disease (20 sources) Hypoxemia; Translations: [Hypoxemia] 06-20-2022 Episodic Other lower respiratory disease (8 sources) Hypoxemia; Translations: [Hypoxemia] Onset: Episodic Other lower respiratory disease (20 sources) Cough; Translations: [Cough] 10-15-2023 Episodic Other lower respiratory disease (20 sources) History of chronic obstructive airway disease; Translations: [Personal history of other diseases of the respiratory system] 12-10-2023 Episodic Other lower respiratory disease (20 sources) Respiratory insufficiency; Translations: [Other abnormalities of breathing] 01-26-2024 Episodic Other lower respiratory disease (5 sources) Other abnormalities of breathing; Translations: [Other pulmonary insufficiency, not elsewhere classified] 01-26-2024 Episodic Other lower respiratory disease (14 sources) Wheezing; Translations: [Wheezing] 01-01-2025 Episodic Other lower respiratory disease (16 sources) Hypoxia; Translations: [Hypoxemia] 02-20-2025 Episodic Other lower respiratory disease (19 sources) Cough; Translations: [Acute cough] 03-04-2025 Episodic Other lower respiratory disease (2 sources) Personal history of other diseases of the respiratory system; Translations: [Personal history of other diseases of the respiratory system] Onset: 5 Episodic Other nervous system disorders (20 sources) Neuropathy; Translations: [Polyneuropathy, unspecified] 02-15-2025 Chronic Other nervous system disorders (1 source) Polyneuropathy, unspecified; Translations: [Polyneuropathy, unspecified] Onset: 5 Chronic Other nervous system disorders (20 sources) Tremor; Translations: [Tremor, unspecified] 01-06-2025 Episodic Other nervous system disorders (20 sources) Unsteady when walking; Translations: [Unsteadiness on feet] 02-15-2025 Episodic Other nervous system disorders (20 sources) Muscle twitch; Translations: [Fasciculation] 02-15-2025 Episodic Other nervous system disorders (3 sources) Memory finding; Translations: [Other symptoms and signs involving cognitive functions and awareness] 04-27-2025 Episodic Other non-traumatic joint disorders (9 sources) Pain in wrist; Translations: [Pain in left wrist] 05-03-2025 Episodic Other non-traumatic joint disorders (1 source) Pain in left wrist; Translations: [Pain in left wrist] Onset: 5 Episodic Other nutritional; endocrine; and metabolic disorders (20 sources) Obese class I; Translations: [Obesity, unspecified] Onset: 8 08-10-2018 Chronic Other nutritional; endocrine; and metabolic disorders (20 sources) H/O: diabetes mellitus; Translations: [Personal history of other endocrine, nutritional and metabolic disease] 12-10-2023 Episodic Other nutritional; endocrine; and metabolic disorders (2 sources) Personal history of other endocrine, nutritional and metabolic disease; Translations: [Personal history of other endocrine, nutritional and metabolic disease] Onset: 5 Episodic Other screening for suspected conditions (not mental disorders or infectious disease) (9 sources) Abnormal findings on diagnostic imaging of other specified body structures; Translations: [Nonspecific (abnormal) findings on radiological and other examination of other intrathoracic organs] 09-16-2023 Chronic Other skin disorders (1 source) Asteatosis cutis; Translations: [Xerosis cutis] 12-22-2024 Episodic Other upper respiratory disease (20 sources) Chronic rhinitis; Translations: [Chronic rhinitis] Onset: 8 10-02-2021 Chronic Other upper respiratory disease (20 sources) Allergic rhinitis; Translations: [Allergic rhinitis, unspecified] Onset: 5 Chronic Other upper respiratory disease (15 sources) Allergic rhinitis, unspecified; Translations: [Allergic rhinitis, cause unspecified] Chronic Other upper respiratory infections (20 sources) Upper respiratory infection; Translations: [Acute upper respiratory infection, unspecified] 04-30-2020 Episodic Loren-; endo-; and myocarditis; cardiomyopathy (except that caused by tuberculosis or sexually transmitted disease) (1 source) Endocarditis, valve unspecified; Translations: [Endocarditis, valve unspecified] Onset: 5 Chronic Peripheral and visceral atherosclerosis (20 sources) Peripheral vascular disease, unspecified; Translations: [Peripheral vascular disease, unspecified] Onset: 8 08-06-2018 Chronic Pleurisy; pneumothorax; pulmonary collapse (20 sources) Pleural effusion; Translations: [Pleural effusion, not elsewhere classified] Episodic Pneumonia (except that caused by tuberculosis or sexually transmitted disease) (20 sources) Pneumonia; Translations: [Pneumonia, unspecified organism] Onset: Episodic Pulmonary heart disease (20 sources) Pulmonary hypertension; Translations: [Pulmonary hypertension, unspecified] 03-26-2019 Chronic Rehabilitation care; fitting of prostheses; and adjustment of devices (1 source) Encounter for fitting and adjustment of other specified devices; Translations: [Encounter for fitting and adjustment of other specified devices] Onset: 5 Chronic Residual codes; unclassified (20 sources) Obstructive sleep apnea syndrome; Translations: [Obstructive sleep apnea (adult) (pediatric)] 11-01-2022 Chronic Residual codes; unclassified (20 sources) Obstructive sleep apnea (adult) (pediatric); Translations: [Obstructive sleep apnea (adult)(pediatric)] Onset: Chronic Residual codes; unclassified (20 sources) Finding of personal status; Translations: [Other specified health status] 11-01-2022 Episodic Residual codes; unclassified (20 sources) Other specified health status; Translations: [Other specified conditions influencing health status] Episodic Residual codes; unclassified (20 sources) Amnesia; Translations: [Other amnesia] 12-12-2023 Episodic Residual codes; unclassified (20 sources) Bilateral lower limb edema; Translations: [Localized edema] 01-26-2024 Episodic Residual codes; unclassified (6 sources) Localized edema; Translations: [Edema] Onset: 5 01-26-2024 Episodic Residual codes; unclassified (16 sources) Edema; Translations: [Edema, unspecified] 02-12-2024 Episodic Residual codes; unclassified (1 source) Edema, unspecified; Translations: [Edema] 02-12-2024 Episodic Residual codes; unclassified (16 sources) Peripheral edema; Translations: [Localized edema] 02-15-2025 Episodic Respiratory failure; insufficiency; arrest (adult) (20 sources) Acute respiratory failure; Translations: [Acute respiratory failure with hypoxia] Onset: 3 Episodic Screening and history of mental health and substance abuse codes (20 sources) Ex-smoker; Translations: [Personal history of nicotine dependence] Onset: 3 08-21-2023 Episodic Spondylosis; intervertebral disc disorders; other back problems (20 sources) Arthritis of facet joint of lumbar spine; Translations: [Spondylosis without myelopathy or radiculopathy, lumbar region] 12-21-2022 Chronic Spondylosis; intervertebral disc disorders; other back problems (20 sources) Chronic low back pain; Translations: [Chronic midline low back pain without sciatica] Onset: 6 04-10-2016 Episodic Substance-related disorders (20 sources) Tobacco user; Translations: [Nicotine dependence, unspecified, uncomplicated] Onset: 5 08-10-2018 Chronic Superficial injury; contusion (11 sources) Abrasion of head; Translations: [Abrasion of unspecified part of head, initial encounter] 12-28-2024 Episodic Syncope (15 sources) Near syncope; Translations: [Syncope and collapse] 05-01-2024 Episodic Thyroid disorders (20 sources) Nontoxic single thyroid nodule; Translations: [Nontoxic uninodular goiter] Onset: 4 09-16-2023 Chronic Unclassified (1 source) Post Op Onset: 4 Unclassified (2 sources) Acute cough; Translations: [Acute cough] Onset: 5 Unclassified (1 source) Cough, unspecified; Translations: [Cough, unspecified] Onset: 5 Unclassified (1 source) Obesity, class 1; Translations: [Obesity, class 1] Onset: 5 Unclassified (1 source) Chronic atrial fibrillation, unspecified; Translations: [Chronic atrial fibrillation, unspecified] Onset: 4 Urinary tract infections (20 sources) Acute cystitis; Translations: [Acute cystitis with hematuria] Episodic Past or Other Problems Problem Classification Problem Date Documented Da te Episodic/Chronic Acute bronchitis (20 sources) Acute bronchitis; Translations: [Acute bronchitis, unspecified] Onset: 02-22-2025 02-15-2025 Episodic Coronary atherosclerosis and other heart disease (5 sources) Presence of coronary angioplasty implant and graft; Translations: [Percutaneous transluminal coronary angioplasty status] Onset: 02-17-2008 Episodic Deficiency and other anemia (1 source) Iron deficiency anemia, unspecified; Translations: [Iron deficiency anemia, unspecified] Onset: 02-10-2025 Episodic Deficiency and other anemia (1 source) Other specified anemias; Translations: [Other specified anemias] Onset: 02-01-2025 Episodic Diverticulosis and diverticulitis (20 sources) Diverticulitis of large intestine without perforation or abscess without bleeding; Translations: [Diverticulitis of colon (without mention of hemorrhage)] Onset: 06-12-2005 Resolved: 08-04-2012 08-04-2012 Chronic Malaise and fatigue (20 sources) Asthenia; Translations: [Other malaise] Onset: 02-25-2025 Episodic Nonspecific chest pain (20 sources) Chest pain; Translations: [Chest pain, unspecified] Onset: 07-06-2024 Episodic Nutritional deficiencies (12 sources) Iron deficiency; Translations: [Iron deficiency] Onset: 02-01-2025 02-01-2025 Episodic Other and unspecified benign neoplasm (14 sources) History of polyp of colon; Translations: [Personal history of colonic polyps] Onset: 06-13-2005 Resolved: 08-04-2012 08-04-2012 Episodic Other circulatory disease (2 sources) Other specified symptoms and signs involving the circulatory and respiratory systems; Translations: [Other specified symptoms and signs involving the circulatory and respiratory systems] Onset: 02-04-2025 Episodic Other circulatory disease (1 source) Personal history of other diseases of the circulatory system; Translations: [Personal history of other diseases of the circulatory system] Onset: 07-30-2024 Episodic Other connective tissue disease (17 sources) Leg swelling symptom; Translations: [Other specified soft tissue disorders] Onset: 12-12-2023 12-12-2023 Episodic Other connective tissue disease (14 sources) Pain in limb; Translations: [Pain in unspecified limb] Onset: 05-11-2015 Resolved: 10-29-2018 10-29-2018 Episodic Other connective tissue disease (1 source) Unspecified symptoms and signs involving the nervous system; Translations: [Stroke-like symptoms] Onset: 11-09-2023 Episodic Other diseases of veins and lymphatics (20 sources) Peripheral venous insufficiency; Translations: [Venous insufficiency (chronic) (peripheral)] Onset: 05-11-2015 08-07-2018 Episodic Other lower respiratory disease (14 sources) Disorder of lung; Translations: [Other disorders of lung] Onset: 08-22-2007 Resolved: 08-04-2012 08-04-2012 Episodic Other lower respiratory disease (1 source) Wheezing; Translations: [Wheezing] Onset: 01-01-2025 Episodic Other nervous system disorders (1 source) Fasciculation; Translations: [Fasciculation] Onset: 02-22-2025 Episodic Other nervous system disorders (1 source) Unsteadiness on feet; Translations: [Unsteadiness on feet] Onset: 02-22-2025 Episodic Other screening for suspected conditions (not mental disorders or infectious disease) (20 sources) Hormone level - finding; Translations: [Other specified abnormal findings of blood chemistry] Onset: 07-20-2009 Resolved: 10-16-2017 Episodic Residual codes; unclassified (17 sources) Other specified postprocedural states; Translations: [Personal history of surgery to other organs] Onset: 08-21-2023 Episodic Residual codes; unclassified (20 sources) History of great vessel repair; Translations: [Other specified postprocedural states] Onset: 08-21-2023 08-21-2023 Episodic Residual codes; unclassified (19 sources) Finding of systemic arterial pressure; Translations: [Other general symptoms and signs] Onset: 10-18-2023 10-18-2023 Episodic Residual codes; unclassified (14 sources) Memory impairment; Translations: [Other amnesia] Onset: 07-24-2010 Resolved: 08-04-2012 08-04-2012 Episodic Unclassified (1 source) Peripheral arterial disease 03-09-2025 Unclassified (1 source) History of great vessel repair 03-09-2025 Results Test Name Value Interpretation Reference Range Facility Anion gap in Serum or Plasma Ordered By: ROXANN Silveira on 05-28-2025 Anion gap [Moles/Vol] 13 mmol/L 02-18 [facility] BUN/creatinine ratioOrdered By: ROXANN Silveira on 05-28-2025 Urea nitrogen/Creatinine [Mass ratio] 22.2 mg/mg High 07-26 [facility] Carbon dioxide, total [Moles /volume] in Central venous bloodOrdered By: ROXANN Silveira on 05-28-2025 CO2 [Moles/Vol] 26.7 mmol/L 21.0-32.0 [facility] Chloride assayOrdered By: ROAXNN Silveira on 05-28-2025 Chloride [Moles/Vol] 96 mmol/L Low 98-108 [facility] Erythrocyte distribution wid th ratioOrdered By: ROXANN Silveira on 05-28-2025 Erythrocyte distribution width (RBC) [Ratio] 14.9 % High 11.6-14.6 [facility] Erythrocyte distribution wid th standard deviationOrdered By: ROXANN Silveira on 05-28-2025 Erythrocyte distribution width (RBC) [Ratio] 49.4 fl High 35.1-43.9 [facility] Glomerular filtration rate ( GFR) estimation/1.73 sq m using serum, plasma, or whole bOrdered By: ROXANN Silveira on 05-28-2025 GFR/1.73 sq M.predicted among non-blacks MDRD (S/P/Bld) [Vol rate/Area] 29 mL/min/{1.73_m2} Low >60 [facility] Hematocrit Auto (Bld) [Volum e fraction]Ordered By: ROXANN Silveira on 05-28-2025 Hematocrit (Bld) [Volume fraction] 34.2 % Low 40-54 [facility] Hemoglobin measurementOrdere d By: ROXANN Silveira on 05-28-2025 Hemoglobin (Bld) [Mass/Vol] 12.7 g/dL Low 13.0-16.5 [facility] Iron measurement (mass/mass) Ordered By: ROXANN Silveira on 05-28-2025 Iron (Unsp spec) [Mass/Mass] 61 ug/dL Low 65-175 [facility] MCV (mean corpuscular volume ) determinationOrdered By: ROXANN Silveira on 05-28-2025 MCV (RBC) [Entitic vol] 98.8 fL High 80-94 [facility] Mean corpuscular hemoglobin (MCH) determinationOrdered By: ROXANN Silveira on 05-28-2025 MCH (RBC) [Entitic mass] 36.7 pg High 27.0-32.0 [facility] No Panel InformationOrdered By: ROXANN Silveira on 05-28-2025 187 ug/dL Low 228-428 [facility] Platelet countOrdered By: ROXANN Silveira on 05-28-2025 Platelets (Bld) [#/Vol] 266 10*3/uL 150-450 [facility] Potassium measurement (mass/ volume)Ordered By: ROXANN Silveira on 05-28-2025 Potassium (Unsp spec) [Mass/Vol] 4.4 mmol/L 3.3-5.1 [facility] RBC Auto (Bld) [#/Vol]Ordere d By: ROXANN Silveira on 05-28-2025 RBC (Bld) [#/Vol] 3.46 10*6/uL Low 4.6-6.2 [facility] Random urine creatinine harley urement (mass/volume)Ordered By: ROXANN Silveira on 05-28-2025 Creatinine Unsp time (U) [Mass/Vol] 48.50 mg/dL 39.00-259.0 0 [facility] Serum creatinine measurement (mass/volume)Ordered By: ROXANN Silveira on 05-28-2025 Creatinine [Mass/Vol] 2.13 mg/dL High 0.70-1.20 [facility] Serum glucose measurement (m ass/volume)Ordered By: ROXANN Silveira on 05-28-2025 Glucose [Mass/Vol] 153 mg/dL High 70-99 [facility] Serum or plasma calcium harley urement (mass/volume)Ordered By: ROXANN Silveira on 05-28-2025 Calcium [Mass/Vol] 9.5 mg/dL 7.6-11.0 [facility] Serum or plasma iron saturat ion measurement (mass fraction)Ordered By: ROXANN Silveira on 05-28-2025 Iron saturation [Mass fraction] 25.0 % 9-55 [facility] Serum or plasma urea nitroge n measurement (mass/volume)Ordered By: ROXANN Silveira on 05-28-2025 Urea nitrogen [Mass/Vol] 47 mg/dL High 4-19 [facility] Sodium levelOrdered By: ROXANN Silveira on 05-28-2025 Sodium [Moles/Vol] 136 mmol/L 133-145 [facility] Urine protein measurement (m ass/volume)Ordered By: ROXANN Silveira on 05-28-2025 Protein (U) [Mass/Vol] 10.6 mg/dL 0.0-12.0 [facility] Urine protein/creatinine mas s ratioOrdered By: ROXANN Silveira on 05-28-2025 Protein/Creatinine (U) [Mass ratio] 219 mg/g CRE High 0-200 [facility] White blood cell (WBC) count Ordered By: ROXANN Silveira on 05-28-2025 WBC (Bld) [#/Vol] 7.1 10*3/uL 4.4-11.0 [facility] Gram stainOrdered By: ROXANN Silveira on 05-19-2025 Microscopic observation Gram stain Nom (Unsp spec) [facility] Microbial respiratory cultur eOrdered By: ROXANN Silveira on 05-19-2025 Microorganism identified Cx Nom (Unsp spec) [facility] CNOVon 05-04-2025 CNOV Office Visit (PODIWS ) DESIREE AMES ([id number]) 1935 M Date Time Provider Department 05/04/25 1:45 PM VIPUL RICHARD During your visit today, we recorded the following information about you: Lashanda Murillo RN 05/04/2025 10:13 PM Signed Patient presents with: Left Foot - Established Patient, Follow Up, nail care Right Foot - Established Patient, Follow Up, nail care Patient presents for 9 week follow up diabetic foot/nail care. Also due for diabetic foot exam. LYNDSEY 02/25/25 Vipul Richard 05/04/2025 2:56 PM Signed Diabetes Foot Care Instructions When you have [...] (or decreased sensation in your feet) a instructor dramatic arts should always cut your toenails. Be Careful [...] Go to your health care provider or instructor dramatic arts to treat these conditions. Vipul Richard 05/04/2025 10:13 PM Signed Last saw pcp: not in chart Subjective: [...] Patient presents to clinic ambulating in sneakers V (more content not included)... Normal [facility] No Panel InformationOrdered By: Riaz Garrison on 04-27-2025 6.7 % High 4.2-6.3 [facility] Anion gap in Serum or Plasma Ordered By: Bijal Deluna on 04-05-2025 Anion gap [Moles/Vol] 16 mmol/L High 5-15 [facility] BUN/creatinine ratioOrdered By: Bijal Deluna on 04-05-2025 Urea nitrogen/Creatinine [Mass ratio] 16.8 mg/mg 10-20 [facility] Carbon dioxide, total [Moles /volume] in Central venous bloodOrdered By: Bijal Deluna on 04-05-2025 CO2 [Moles/Vol] 22.8 mmol/L 21.0-32.0 [facility] Chloride assayOrdered By: Willy Deluna on 04-05-2025 Chloride [Moles/Vol] 96 mmol/L Low 98-108 [facility] Erythrocyte distribution wid th ratioOrdered By: Bijal Deluna on 04-05-2025 Erythrocyte distribution width (RBC) [Ratio] 17.1 % High 11.6-14.6 [facility] Erythrocyte distribution wid th standard deviationOrdered By: Bijal Deluna on 04-05-2025 Erythrocyte distribution width (RBC) [Ratio] 60.0 fl High 35.1-43.9 [facility] Glomerular filtration rate ( GFR) estimation/1.73 sq m using serum, plasma, or whole bOrdered By: Bijal Deluna on 04-05-2025 GFR/1.73 sq M.predicted among non-blacks MDRD (S/P/Bld) [Vol rate/Area] 25 mL/min/{1.73_m2} Low >60 [facility] Hematocrit Auto (Bld) [Volum e fraction]Ordered By: Bijal Deluna on 04-05-2025 Hematocrit (Bld) [Volume fraction] 37.5 % Low 40-54 [facility] Hemoglobin measurementOrdere d By: Bijal Deluna on 04-05-2025 Hemoglobin (Bld) [Mass/Vol] 11.7 g/dL Low 13.0-16.5 [facility] MCV (mean corpuscular volume ) determinationOrdered By: Bijal Deluna on 04-05-2025 MCV (RBC) [Entitic vol] 95.7 fL High 80-94 [facility] Mean corpuscular hemoglobin (MCH) determinationOrdered By: Bijal Deluna on 04-05-2025 MCH (RBC) [Entitic mass] 29.8 pg 27.0-32.0 [facility] Platelet countOrdered By: Willy Deluna on 04-05-2025 Platelets (Bld) [#/Vol] 316 10*3/uL 150-450 [facility] Potassium measurement (mass/ volume)Ordered By: Bijal Deluna on 04-05-2025 Potassium (Unsp spec) [Mass/Vol] 4.5 mmol/L 3.3-5.1 [facility] RBC Auto (Bld) [#/Vol]Ordere d By: Bijal Deluna on 04-05-2025 RBC (Bld) [#/Vol] 3.92 10*6/uL Low 4.6-6.2 [facility] Serum creatinine measurement (mass/volume)Ordered By: Bijal Deluna on 04-05-2025 Creatinine [Mass/Vol] 2.41 mg/dL High 0.70-1.20 [facility] Serum glucose measurement (m ass/volume)Ordered By: Bijal Deluna on 04-05-2025 Glucose [Mass/Vol] 307 mg/dL High 70-99 [facility] Serum or plasma calcium harley urement (mass/volume)Ordered By: Bijal Deluna on 04-05-2025 Calcium [Mass/Vol] 9.5 mg/dL 7.6-11.0 [facility] Serum or plasma urea nitroge n measurement (mass/volume)Ordered By: Bijal Deluna on 04-05-2025 Urea nitrogen [Mass/Vol] 40 mg/dL High 4-19 [facility] Sodium levelOrdered By: Charlotte Deluna on 04-05-2025 Sodium [Moles/Vol] 134 mmol/L 133-145 [facility] White blood cell (WBC) count Ordered By: Bijal Deluna on 04-05-2025 WBC (Bld) [#/Vol] 8.3 10*3/uL 4.4-11.0 [facility] CNOVon 03-23-2025 CNOV Office Visit (VASSWS ) DESIREE AMES ([id number]) 1935 M Date Time Provider Department 03/23/25 10:30 AM DARRYL MALLORY During your visit today, we recorded the following information about you: Pulse Blood pressure 65/minute 138/74 Darryl Mallory, DO 04/21/2025 7:30 AM Signed [facility]GERY OUTPATIENT VISIT DATE March 23, 2025 OUTPATIENT VISIT TYPE ESTABLISHED SERVICE DATE: 03/23/2025 SERVICE TIME: 11:04 AM PRIMARY CARE PHYSICIAN: Riaz Garrison MD HISTORY OF PRESENT ILLNESS: Mr. Ames is a 89 year old male who presents today for a vascular surgery follow-up visit after aortic duplex. States his biggest issue is when is falling asleep or asleep he has jerking movements of arms and legs that is becoming more distressing. 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 Hilliard. Coronary atherosclerosis of unspecified type of vessel, [place] or graft 06/13/2005 Diverticulitis of colon (without mention of hemorrhage)(562.11) 06/12/2005 Former smoker 08/21/2023 Heart attack (HCC) Hypertrophy of prostate without urinary obstruction and other lower urinary tract symptoms (LUTS) 06/12/2005 Memory disturbance 07/24/2010 Mitral valve disorders(424.0) 06/12/2005 Other and unspecified hyperlipidemia 06/13/2005 Other specified disorders of arteries and arterioles 06/12/2005 Peripheral vascular disease, unspecified 06/12/2005 Personal history of colonic polyps 06/13/2005 Tubular adenoma. 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 S/P femoral-popliteal bypass surgery 08/07/2018 Snoring Superficial femoral artery occlusion 08/21/2023 Superficial occlusion of femoral artery Symptom of leg swelling 12/12/2023 Tobacco use disorder 06/12/2005 Type II or unspecified type diabetes mellitus without mention of complication, not stated as uncontrolled 01/24/2011 Unspecified essential hypertension 06/12/2005 Venous insufficiency (chronic) (peripheral) 05/11/2015 PAST SURGICAL HISTORY Procedure Laterality Date APPENDECTOMY DONE W/OTHR MAJOR SURGERY 1998 With inguinal hernia repair [facility] INCL FLUOR GDNCE DX W/CELL WASHG [...] percut, Prox. RCA. TRANSURETHRAL ELEC-SURG PROSTATECTOM 03/07/2022 SOCIAL HISTORY Social History Tobacco Use Smoking status: Former Current packs/day: 0.00 Average packs/day: 0.5 packs/day for 50.0 years (25.0 ttl pk-yrs) Types: Cigarettes, Cigars Start date: 02/04/1958 Quit date: 02/05/2008 Years since quittin.1 Smokeless tobacco: Never Vaping Use Vaping status: Never Used Substance Use Topics Alcohol use: Yes Comment: Rare Drug use: No MEDICATIONS: furosemide (LASIX) 80 mg tablet Take 80 mg by mouth once daily. potassium chloride ER (KLO (more content not included)... Normal [facility] Absolute lymphocyte countOrd ered By: Fernandez Santana on 03-09-2025 Lymphocytes Auto (Unsp spec) [#/Vol] 1.22 10*3/uL 0.83-4.51 [facility] Anion gap in Serum or Plasma Ordered By: Fernandez Santana on 03-09-2025 Anion gap [Moles/Vol] 14 mmol/L 5-15 [facility] Automated lymphocyte count a s percentage of total leukocytesOrdered By: Fernandez Santana on 03-09-2025 Lymphocytes/100 WBC Auto (Unsp spec) 15.9 % Low 19-41 [facility] BUN/creatinine ratioOrdered By: Fernandez Santana on 03-09-2025 Urea nitrogen/Creatinine [Mass ratio] 20.2 mg/mg High 10-20 [facility] Basophil percentageOrdered B y: Fernandez Santana on 03-09-2025 Basophils/100 WBC (Bld) 0.4 % 0-1 [facility] Carbon dioxide, total [Moles /volume] in Central venous bloodOrdered By: Fernandez Santana on 03-09-2025 CO2 [Moles/Vol] 23.9 mmol/L 21.0-32.0 [facility] Chloride assayOrdered By: Mindi Santana on 03-09-2025 Chloride [Moles/Vol] 100 mmol/L 98-108 [facility] Eosinophil percentageOrdered By: Fernandez Santana on 03-09-2025 Eosinophils/100 WBC (Bld) 1.4 % 0-5 [facility] Erythrocyte distribution wid th ratioOrdered By: Fernandez Santana on 03-09-2025 Erythrocyte distribution width (RBC) [Ratio] 16.1 % High 11.6-14.6 [facility] Erythrocyte distribution wid th standard deviationOrdered By: Fernandez Santana on 03-09-2025 Erythrocyte distribution width (RBC) [Ratio] 53.9 fl High 35.1-43.9 [facility] Glomerular filtration rate ( GFR) estimation/1.73 sq m using serum, plasma, or whole bOrdered By: Fernandez Santana on 03-09-2025 GFR/1.73 sq M.predicted among non-blacks MDRD (S/P/Bld) [Vol rate/Area] 28 mL/min/{1.73_m2} Low >60 [facility] Gl[facility] deOrdered By: Tracey Orantes on 03-09-2025 Glucose [Mass/Vol] 211 mg/dL High 74-106 [facility] Glucose [Mass/Vol] 228 mg/dL High 74-106 [facility] Hematocrit Auto (Bld) [Volum e fraction]Ordered By: Fernandez Santana on 03-09-2025 Hematocrit (Bld) [Volume fraction] 31.8 % Low 40-54 [facility] Hemoglobin measurementOrdere d By: Fernandez Santana on 03-09-2025 Hemoglobin (Bld) [Mass/Vol] 10.6 g/dL Low 13.0-16.5 [facility] Immature granulocytes/100 WB C Auto (Bld)Ordered By: Fernandez Santana on 03-09-2025 Immature granulocytes/100 WBC (Bld) 1.000 % High 0.0-0.9 [facility] MCV (mean corpuscular volume ) determinationOrdered By: Fernandez Santana on 03-09-2025 MCV (RBC) [Entitic vol] 95.5 fL High 80-94 [facility] Mean corpuscular hemoglobin (MCH) determinationOrdered By: Fernandez Santana on 03-09-2025 MCH (RBC) [Entitic mass] 31.8 pg 27.0-32.0 [facility] Monocyte percentageOrdered B y: Fernandez Santana on 03-09-2025 Monocytes/100 WBC (Bld) 6.6 % 0-10 [facility] Neutrophil percentageOrdered By: Fernandez Santana on 03-09-2025 Neutrophils/100 WBC (Bld) 74.7 % High 47-70 [facility] Platelet countOrdered By: Mindi Santana on 03-09-2025 Platelets (Bld) [#/Vol] 281 10*3/uL 150-450 [facility] Potassium measurement (mass/ volume)Ordered By: Fernandez Santana on 03-09-2025 Potassium (Unsp spec) [Mass/Vol] 3.4 mmol/L 3.3-5.1 [facility] RBC Auto (Bld) [#/Vol]Ordere d By: Fernandez Santana on 03-09-2025 RBC (Bld) [#/Vol] 3.33 10*6/uL Low 4.6-6.2 [facility] Serum creatinine measurement (mass/volume)Ordered By: Fernandez Santana on 03-09-2025 Creatinine [Mass/Vol] 2.21 mg/dL High 0.70-1.20 [facility] Serum glucose measurement (m ass/volume)Ordered By: Fernandez Santana on 03-09-2025 Glucose [Mass/Vol] 149 mg/dL High 70-99 [facility] Serum or plasma calcium harley urement (mass/volume)Ordered By: Fernandez Santana on 03-09-2025 Calcium [Mass/Vol] 9.1 mg/dL 7.6-11.0 [facility] Serum or plasma urea nitroge n measurement (mass/volume)Ordered By: Fernandez Santana on 03-09-2025 Urea nitrogen [Mass/Vol] 45 mg/dL High 4-19 [facility] Sodium levelOrdered By: Tish Santana on 03-09-2025 Sodium [Moles/Vol] 137 mmol/L 133-145 [facility] White blood cell (WBC) count Ordered By: Fernandez Santana on 03-09-2025 WBC (Bld) [#/Vol] 7.7 10*3/uL 4.4-11.0 [facility] Electrocardiogram reportOrde red By: Nikolai Tsang on 03-08-2025 EKG study [facility] Other Phone: Magnesium measurement (mass/ volume)Ordered By: Tk Chandra on 03-06-2025 Magnesium (Unsp spec) [Mass/Vol] 2.1 mg/dL 1.5-2.2 [facility] Procalcitonin [Mass/volume] in Serum or Plasma by ImmunoassayOrdered By: Guillermo Briones on 03-06-2025 Procalcitonin IA [Mass/Vol] 0.29 ng/mL High <0.11 [facility] Bilirubin directOrdered By: Hansel Gillis on 03-05-2025 Bilirubin.direct [Mass/Vol] 0.34 mg/dL High 0.00-0.30 [facility] Bilirubin, totalOrdered By: Hansel Gillis on 03-05-2025 Bilirubin [Mass/Vol] 0.58 mg/dL 0.00-1.30 [facility] Influenza virus A and B and SARS-CoV-2 (COVID-19) and Respiratory syncytial virus RNAOrdered By: Guillermo Briones on 03-05-2025 SARS-CoV-2 (COVID-19) RNA GARRETT+probe Ql (Unsp spec) [facility] No Panel InformationOrdered By: Hansel Gillis on 03-05-2025 20 U/L <38 [facility] Prothrombin timeOrdered By: Hansel Gillis on 03-05-2025 PT Coag (PPP) [Time] 21.6 s High 11.7-14.9 [facility] Serum globulin measurementOr dered By: Hansel Gillis on 03-05-2025 Globulin (S) [Mass/Vol] 3.4 g/dL 2.2-4.2 [facility] Serum or plasma alanine whaley otransferase (ALT) measurementOrdered By: Hansel Gillis on 03-05-2025 ALT [Catalytic activity/Vol] 12 U/L <47 [facility] Serum or plasma albumin harley urement (mass/volume)Ordered By: Hansel Gillis on 03-05-2025 Albumin [Mass/Vol] 3.2 g/dL Low 3.4-4.8 [facility] Serum or plasma albumin/glob ulin mass ratioOrdered By: Hansel Gillis on 03-05-2025 Albumin/Globulin [Mass ratio] 0.9 {ratio} 0.9-2.4 [facility] Serum or plasma alkaline donell sphatase measurementOrdered By: Hansel Gillis on 03-05-2025 ALP [Catalytic activity/Vol] 69 U/L 40-129 [facility] TSH DL <= 0.005 mIU/L QnOrde red By: Hansel Gillis on 03-05-2025 TSH Qn 1.620 uIU/mL 0.300-4.200 [facility] Total proteinOrdered By: Abby Gillis on 03-05-2025 Protein [Mass/Vol] 6.6 g/dL 5.9-8.4 [facility] Troponin T.cardiac [Mass/vol ume] in Serum or Plasma by High sensitivity methodOrdered By: Tracey Orantes on 03-05-2025 Troponin T.cardiac High sensitivity method [Mass/Vol] 59 ng/L High <22 [facility] Troponin T.cardiac High sensitivity method [Mass/Vol] 59 ng/L High <22 [facility] Troponin T.cardiac High sensitivity method [Mass/Vol] 63 ng/L High <22 [facility] Absolute lymphocyte countOrd ered By: Maddie Hendrickson on 03-04-2025 Lymphocytes Auto (Unsp spec) [#/Vol] 0.83 10*3/uL 0.83-4.51 [facility] Anion gap in Serum or Plasma Ordered By: Maddie Hendrickson on 03-04-2025 Anion gap [Moles/Vol] 12 mmol/L 5-15 [facility] Automated lymphocyte count a s percentage of total leukocytesOrdered By: Maddie Hendrickson on 03-04-2025 Lymphocytes/100 WBC Auto (Unsp spec) 7.8 % Low 19-41 [facility] BUN/creatinine ratioOrdered By: Maddie Hendrickson on 03-04-2025 Urea nitrogen/Creatinine [Mass ratio] 28.2 mg/mg High 10-20 [facility] Basic Metabolic Profile (BMP )on 03-04-2025 BUN/CRE 28.2 RATIO High 07-26 [facility] Comment on above: Performed By: #### L 503.3219, L500.2500, L100.0100 ####[facility] [address] [place], [address] Calcium [Mass/Vol] 9.1 mg/dL Normal 7.6-11.0 [facility] Comment on above: Performed By: #### L 503.7505, L500.2500, L100.0100 ####[facility] [address] [place], [address] Chloride [Moles/Vol] 94 mmol/L Low 98-108 [facility] Comment on above: Performed By: #### L 503.7505, L500.2500, L100.0100 ####[facility] [address] [place], [address] CO2 [Moles/Vol] 25.8 mmol/L Normal 21.0-32.0 [facility] Comment on above: Performed By: #### L 503.7505, L500.2500, L100.0100 ####[facility] [address] [place], [address] Creatinine [Mass/Vol] 2.55 mg/dL High 0.70-1.20 [facility] Comment on above: Performed By: #### L 503.7505, L500.2500, L100.0100 ####[facility] [address] [place], [address] GAP 12 Normal 5-15 [facility] Comment on above: Performed By: #### L 503.7505, L500.2500, L100.0100 ####[facility] [address] [place], [address] GFR/1.73 sq M.predicted among non-blacks MDRD (S/P/Bld) [Vol rate/Area] 24 mL/min/{1.73_m2} Low >60 [facility] Comment on above: Result Comment: mL/m in/1.73m2 CKD-EPI Creatinine Equation (2020) Performed By: #### L 503.7505, L500.2500, L100.0100 ####[facility] [address] [place], [address] Glucose [Mass/Vol] 129 mg/dL High 70-99 [facility] Comment on above: Performed By: #### L 503.7505, L500.2500, L100.0100 ####[facility] [address] [place], [address] Potassium [Moles/Vol] 4.7 mmol/L Normal 3.3-5.1 [facility] Comment on above: Performed By: #### L 503.7505, L500.2500, L100.0100 ####[facility] [address] [place], [address] Sodium [Moles/Vol] 133 mmol/L Normal 133-145 [facility] Comment on above: Performed By: #### L 503.7505, L500.2500, L100.0100 ####[facility] [address] [place], [address] Urea nitrogen [Mass/Vol] 72 mg/dL High 4-19 [facility] Comment on above: Performed By: #### L 503.7505, L500.2500, L100.0100 ####[facility] [address] [place], [address] Basophil percentageOrdered B y: Remus Ungur on 03-04-2025 Basophils/100 WBC (Bld) 0.2 % 0-1 [facility] Bilirubin Test strip Ql (U)O rdered By: Remus Ungur on 03-04-2025 Bilirubin Ql (U) Negative Negative [facility] Blood cultureOrdered By: Rem us Ungur on 03-04-2025 Bacteria identified Cx Nom (Bld) No growth in 5 days. [facility] Bacteria identified Cx Nom (Bld) No growth in 5 days. [facility] CBC W/Diff, Automatedon 05-2 Absolute Lymph 0.83 X10 3/uL Normal 0.83-4.51 [facility] Comment on above: Performed By: #### L 503.7505, L500.2500, L100.0100 ####[facility] [address] [place], [address] Absolute Neut 9.1 X10 3/uL High 2.0-7.7 [facility] Comment on above: Performed By: #### L 503.7505, L500.2500, L100.0100 ####[facility] [address] [place], [address] Basophils/100 WBC (Bld) 0.2 % Normal 0-1 [facility] Comment on above: Performed By: #### L 503.7505, L500.2500, L100.0100 ####[facility] [address] [place], [address] Eosinophils/100 WBC (Bld) 0.7 % Normal 0-5 [facility] Comment on above: Performed By: #### L 503.7505, L500.2500, L100.0100 ####[facility] [address] [place], [address] Erythrocyte distribution width (RBC) [Ratio] 17.2 % High 11.6-14.6 [facility] Comment on above: Performed By: #### L 503.7505, L500.2500, L100.0100 ####[facility] [address] [place], [address] Hematocrit (Bld) [Volume fraction] 31.0 % Low 40-54 [facility] Comment on above: Performed By: #### L 503.7505, L500.2500, L100.0100 ####[facility] [address] [place], [address] Hemoglobin (Bld) [Mass/Vol] 11.3 g/dL Low 13.0-16.5 [facility] Comment on above: Performed By: #### L 503.7505, L500.2500, L100.0100 ####[facility] [address] [place], [address] IG% 0.900 Normal 0.0-0.9 [facility] Comment on above: Result Comment: IG% - Immature Granulocytes (promyelocytes, myelocytes andmetamyelocytes) > 1% indicates that a LEFT SHIFT is Present. Performed By: #### L 503.7505, L500.2500, L100.0100 ####[facility] [address] [place], [address] Lymphocytes/100 WBC (Bld) 7.8 % Low 19-41 [facility] Comment on above: Performed By: #### L 503.7505, L500.2500, L100.0100 ####[facility] [address] [place], [address] MCH (RBC) [Entitic mass] 34.8 pg High 27.0-32.0 [facility] Comment on above: Performed By: #### L 503.7505, L500.2500, L100.0100 ####[facility] [address] [place], [address] MCHC (RBC) [Mass/Vol] 36.5 g/dL High 32-36 [facility] Comment on above: Performed By: #### L 503.7505, L500.2500, L100.0100 ####[facility] [address] [place], [address] MCV (RBC) [Entitic vol] 95.4 fL High 80-94 [facility] Comment on above: Performed By: #### L 503.7505, L500.2500, L100.0100 ####[facility] [address] [place], [address] Monocytes/100 WBC (Bld) 5.4 % Normal 0-10 [facility] Comment on above: Performed By: #### L 503.7505, L500.2500, L100.0100 ####[facility] [address] [place], [address] Neutrophils/100 WBC (Bld) 85.0 % High 47-70 [facility] Comment on above: Performed By: #### L 503.7505, L500.2500, L100.0100 ####[facility] [address] [place], [address] Nucleated RBC (Bld) [#/Vol] 0 10*3/uL Normal 0-5 [facility] Comment on above: Performed By: #### L 503.7505, L500.2500, L100.0100 ####[facility] [address] [place], [address] Platelet mean volume (Bld) [Entitic vol] 10.4 fL Normal 6.2-12.0 [facility] Comment on above: Performed By: #### L 503.7505, L500.2500, L100.0100 ####[facility] [address] [place], [address] Platelets (Bld) [#/Vol] 360 10*3/uL Normal 150-450 [facility] Comment on above: Performed By: #### L 503.7505, L500.2500, L100.0100 ####[facility] [address] [place], [address] RBC (Bld) [#/Vol] 3.25 10*6/uL Low 4.6-6.2 [facility] Comment on above: Performed By: #### L 503.7505, L500.2500, L100.0100 ####[facility] [address] [place], [address] RDW SD 53.6 fl High 35.1-43.9 [facility] Comment on above: Performed By: #### L 503.7505, L500.2500, L100.0100 ####[facility] [address] [place], [address] WBC (Bld) [#/Vol] 10.7 10*3/uL Normal 4.4-11.0 [facility] Comment on above: Performed By: #### L 503.7505, L500.2500, L100.0100 ####[facility] [address] [place], [address] Carbon dioxide, total [Moles /volume] in Central venous bloodOrdered By: Maddie Hendrickson on 03-04-2025 CO2 [Moles/Vol] 25.8 mmol/L 21.0-32.0 [facility] Chest PA and Lateralon 03-04 Chest PA and Lateral Normal [facility] Chloride assayOrdered By: Gena Hendrickson on 03-04-2025 Chloride [Moles/Vol] 94 mmol/L Low 98-108 [facility] Emergency Department Summary on 03-04-2025 Emergency Department Summary Normal [facility] Eosinophil percentageOrdered By: Maddie Hendrickson on 03-04-2025 Eosinophils/100 WBC (Bld) 0.7 % 0-5 [facility] Erythrocyte distribution wid th ratioOrdered By: Maddie Hendrickson on 03-04-2025 Erythrocyte distribution width (RBC) [Ratio] 17.2 % High 11.6-14.6 [facility] Erythrocyte distribution wid th standard deviationOrdered By: Maddie Hendrickson on 03-04-2025 Erythrocyte distribution width (RBC) [Ratio] 53.6 fl High 35.1-43.9 [facility] Glomerular filtration rate ( GFR) estimation/1.73 sq m using serum, plasma, or whole bOrdered By: Maddie Hendrickson on 03-04-2025 GFR/1.73 sq M.predicted among non-blacks MDRD (S/P/Bld) [Vol rate/Area] 24 mL/min/{1.73_m2} Low >60 [facility] Gram stainOrdered By: John Gillis on 03-04-2025 Microscopic observation Gram stain Nom (Unsp spec) [facility] Hematocrit Auto (Bld) [Volum e fraction]Ordered By: Maddie Hendrickson on 03-04-2025 Hematocrit (Bld) [Volume fraction] 31.0 % Low 40-54 [facility] Hemoglobin measurementOrdere d By: Maddie Hendrickson on 03-04-2025 Hemoglobin (Bld) [Mass/Vol] 11.3 g/dL Low 13.0-16.5 [facility] Immature granulocytes/100 WB C Auto (Bld)Ordered By: Maddie Hendrickson on 03-04-2025 Immature granulocytes/100 WBC (Bld) 0.900 % 0.0-0.9 [facility] Ketones Test strip Ql (U)Ord ered By: Maddie Hendrickson on 03-04-2025 Ketones Ql (U) Negative Negative [facility] L501.4021on 03-04-2025 Trop T High Sen 61 ng/L Invalid Interpretation Code <=22 [facility] Comment on above: Result Comment: Crit ical Result(s) Called [facility] at: 1628 by:ATRIQ??Results read back by same. Performed By: #### L 501.4021 ####[facility] [address] [facility] [place], [place], [id number] L503.7505on 03-04-2025 Natriuretic peptide B (Bld) [Mass/Vol] 4021 pg/mL High <=1800 [facility] Comment on above: Result Comment: Hear t Failure Unlikely: < 300 pg/mLHeart Failure Likely< 50 Years: > 450 pg/mL50-75 Years: > 900 pg/mL>75 Years: > 1800 pg/mL Performed By: #### L 503.7505, L500.2500, L100.0100 ####[facility] [address] [place], [address] MCV (mean corpuscular volume ) determinationOrdered By: Maddie Hendrickson on 03-04-2025 MCV (RBC) [Entitic vol] 95.4 fL High 80-94 [facility] Mean corpuscular hemoglobin (MCH) determinationOrdered By: Maddie Hendrickson on 03-04-2025 MCH (RBC) [Entitic mass] 34.8 pg High 27.0-32.0 [facility] Microbial respiratory cultur eOrdered By: Hansel Gillis on 03-04-2025 Microorganism identified Cx Nom (Unsp spec) Staphylococcus aureus Abnormal [facility] Monocyte percentageOrdered B y: Maddie Hendrickson on 03-04-2025 Monocytes/100 WBC (Bld) 5.4 % 0-10 [facility] Mucus LM Ql (Urine sed)Order ed By: Maddie Hendrickson on 03-04-2025 Mucus Ql (Urine sed) 0 SEEN /hpf [facility] Natriuretic peptide.B prohor gurvinder N-Terminal [Mass/volume] in Serum or PlasmaOrdered By: Maddie Hendrickson on 03-04-2025 Natriuretic peptide.B prohormone N-Terminal [Mass/Vol] 4021 pg/mL High <1800 [facility] Neutrophil percentageOrdered By: Maddie Hendrickson on 03-04-2025 Neutrophils/100 WBC (Bld) 85.0 % High 47-70 [facility] Nitrite Test strip Ql (U)Ord ered By: Maddie Hendrickson on 03-04-2025 Nitrite Ql (U) Negative Negative [facility] Platelet countOrdered By: Gena Hendrickson on 03-04-2025 Platelets (Bld) [#/Vol] 360 10*3/uL 150-450 [facility] Potassium measurement (mass/ volume)Ordered By: Maddie Hendrickson on 03-04-2025 Potassium (Unsp spec) [Mass/Vol] 4.7 mmol/L 3.3-5.1 [facility] Protein Test strip Ql (U)Ord ered By: Maddie Hendrickson on 03-04-2025 Protein Ql (U) 15 mg/dl High Negative [facility] RBC Auto (Bld) [#/Vol]Ordere d By: Maddie Ungmaxwell on 03-04-2025 RBC (Bld) [#/Vol] 3.25 10*6/uL Low 4.6-6.2 [facility] Serum creatinine measurement (mass/volume)Ordered By: Maddie Hendrickson on 03-04-2025 Creatinine [Mass/Vol] 2.55 mg/dL High 0.70-1.20 [facility] Serum glucose measurement (m ass/volume)Ordered By: Remus Bensonmaxwell on 03-04-2025 Glucose [Mass/Vol] 129 mg/dL High 70-99 [facility] Serum or plasma calcium harley urement (mass/volume)Ordered By: Remus Ungur on 03-04-2025 Calcium [Mass/Vol] 9.1 mg/dL 7.6-11.0 [facility] Serum or plasma urea nitroge n measurement (mass/volume)Ordered By: Remus Ungur on 03-04-2025 Urea nitrogen [Mass/Vol] 72 mg/dL High 4-19 [facility] Sodium levelOrdered By: Mckennau s Emeka on 03-04-2025 Sodium [Moles/Vol] 133 mmol/L 133-145 [facility] Squamous epithelial cells de tection in urine sediment by light microscopyOrdered By: Maddie [facility] on 03-04-2025 Epithelial cells.squamous LM Ql (Urine sed) 0-5 SEEN /hpf 0-5 [facility] Troponin T.cardiac [Mass/vol ume] in Serum or Plasma by High sensitivity methodOrdered By: Maddie Bensonmaxwell on 03-04-2025 Troponin T.cardiac High sensitivity method [Mass/Vol] 61 ng/L High <22 [facility] US Abdominal Aortaon 025 Non-Invasive Vascular Laboratory [facility] Abdominal Aorta Bilateral/Complete Date of service/time: 03/03/2025 8:13:01 AM Name: MR. 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 TECHNIQUE -------- An aortic duplex ultrasound examination was performed, including grayscale imaging and color Doppler and spectral Doppler examination of abdominal aorta as well as the below mentioned arteries. FINDINGS -------- AORTA Proximal: PSV: 50 cm/s. EDV: 10 cm/s. 2.88 cm x 2.85 cm At renal: PSV: 55 cm/s. EDV: 0 cm/s. 2.04 cm Aortobiiliac graft mid PSV: 31 cm/s. EDV: 10 cm/s. Aortobiiliac graft distal PSV: 35 cm/s. EDV: 0 cm/s. Right limb mid PSV: 128 cm/s. EDV: 0 cm/s. Right external iliac artery proximal PSV: 89 cm/s. EDV: 0 cm/s. Right external iliac artery mid PSV: 91 cm/s. EDV: 0 cm/s. Right external iliac artery distal PSV: 329 cm/s. EDV: 0 cm/s. Left common femoral artery mid PSV: 121 cm/s. EDV: 12 cm/s. Right profunda artery origin PSV: 94 cm/s. EDV: 0 cm/s. Right superficial femoral artery origin PSV: 0 cm/s. EDV: 0 cm/s. Left limb mid PSV: 109 cm/s. EDV: 0 cm/s. Left external iliac artery proximal PSV: 66 cm/s. EDV: 0 cm/s. Left external iliac artery mid PSV: 156 cm/s. EDV: 0 cm/s. Left external iliac artery distal PSV: 218 cm/s. EDV: 0 cm/s. Left common femoral artery PSV: 108 cm/s. EDV: 23 cm/s. Left profunda artery origin PSV: 274 cm/s. EDV: 25 cm/s. Left superficial femoral artery origin PSV: 0 cm/s. EDV: 0 cm/s. IMPRESSION Technically difficult exam due to heavy breathing and coughing. 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 Aortobiiliac graft and limbs are patent. ARTERIES/GRAFT Aortobiiliac graft : patent . Right limb : patent . Right external iliac artery distal: 50-99% stenosis . Right common femoral artery : patent . Right profunda artery proximal: patent . Right superficial femoral artery origin: occluded . Left limb : patent . Left external iliac artery mid: 50-99% stenosis . Left common femoral artery : patent . Left profunda artery origin: 50-99% stenosis . Left superficial femoral artery origin: occluded . Technologist: Ade Austin RVT Ordering physician: DARRYL MALLORY Interpreting physician: Genaro Asher MD, RPVI Final See Link below for Image [facility] Urgent Care Visit Reporton 0 03-04-2025 Urgent Care Visit Report Normal [facility] [facility] Urinalysis, Completeon 03-04 EPI,SQUAMOUS 0-5 SEEN Normal 0-5 [facility] Comment on above: Order Comment: PADMA TER SPECIMEN Performed By: #### L 400.0001 ####[facility] [address] [place], [address] RBC 0-5 SEEN Normal 0-5 [facility] Comment on above: Order Comment: PADMA TER SPECIMEN Performed By: #### L 400.0001 ####[facility] [address] [place], [address] WBC 0-5 SEEN Normal 0-5 [facility] Comment on above: Order Comment: PADMA TER SPECIMEN Performed By: #### L 400.0001 ####[facility] [address] [place], [address] BACTERIA 0 SEEN Normal None Seen [facility] Comment on above: Order Comment: PADMA TER SPECIMEN Performed By: #### L 400.0001 ####[facility] [address] [place], [address] Mucus Ql (Urine sed) 0 SEEN Normal [facility] Comment on above: Order Comment: PADMA TER SPECIMEN Performed By: #### L 400.0001 ####[facility] [address] [place], [address] Urine clarityOrdered By: Mckenna Hendrickson on 03-04-2025 Clarity (U) Clear Clear [facility] Urine color determinationOrd ered By: Maddie Hendrickson on 03-04-2025 Color (U) Yellow Yellow [facility] Urine glucose detectionOrder ed By: Maddie Hendrickson on 03-04-2025 Glucose Ql (U) Normal mg/dl Normal [facility] Urine leukocyte esterase det ection by dipstickOrdered By: Maddie Hendrickson on 03-04-2025 Leukocyte esterase Test strip Ql (U) 25 /ul High Negative [facility] Urine pHOrdered By: Maddie Un gur on 03-04-2025 pH (U) 6.0 [pH] 5.0 - 8.0 [facility] Urine sediment bacteria coun t by microscopy (number/high power field)Ordered By: Maddie Hendrickson on 03-04-2025 Bacteria LM.HPF (Urine sed) [#/Area] 0 /[HPF] None Seen [facility] Urine specific gravity measu rementOrdered By: Maddie Hendrickson on 03-04-2025 Specific gravity (U) [Rel density] 1.010 1.002-1.030 [facility] Urine urobilinogen measureme ntOrdered By: Maddie Hendrickson on 03-04-2025 Urobilinogen Ql (U) Normal mg/dl Normal [facility] White blood cell (WBC) count Ordered By: Maddie Hendrickson on 03-04-2025 WBC (Bld) [#/Vol] 10.7 10*3/uL 4.4-11.0 [facility] White blood cell countOrdere d By: Maddie Hendrickson on 03-04-2025 White blood cell count 0-5 SEEN /hpf 0-5 [facility] Absolute lymphocyte countOrd ered By: Vipul Concepcion on 03-03-2025 Lymphocytes Auto (Unsp spec) [#/Vol] 0.66 10*3/uL Low 0.83-4.51 [facility] Anion gap in Serum or Plasma Ordered By: Vipul Concepcion on 03-03-2025 Anion gap [Moles/Vol] 13 mmol/L 5-15 [facility] Automated lymphocyte count a s percentage of total leukocytesOrdered By: Vipul Concepcion on 03-03-2025 Lymphocytes/100 WBC Auto (Unsp spec) 4.4 % Low 19-41 [facility] BUN/creatinine ratioOrdered By: Vipul Concepcion on 03-03-2025 Urea nitrogen/Creatinine [Mass ratio] 26.4 mg/mg High 10-20 [facility] Basic Metabolic Profile (BMP )on 03-03-2025 BUN/CRE 26.4 RATIO High 10-20 [facility] Comment on above: Performed By: #### L 500.2500, L503.6550, L503.6030, L100.0100 ####[facility] [address] [place], [address] Calcium [Mass/Vol] 9.6 mg/dL Normal 7.6-11.0 [facility] Comment on above: Performed By: #### L 500.2500, L503.6550, L503.6030, L100.0100 ####[facility] [address] [place], [address] Chloride [Moles/Vol] 95 mmol/L Low 98-108 [facility] Comment on above: Performed By: #### L 500.2500, L503.6550, L503.6030, L100.0100 ####[facility] [address] [place], [address] CO2 [Moles/Vol] 25.3 mmol/L Normal 21.0-32.0 [facility] Comment on above: Performed By: #### L 500.2500, L503.6550, L503.6030, L100.0100 ####[facility] [address] [place], [address] Creatinine [Mass/Vol] 2.89 mg/dL High 0.70-1.20 [facility] Comment on above: Performed By: #### L 500.2500, L503.6550, L503.6030, L100.0100 ####[facility] [address] [place], [address] GAP 13 Normal 5-15 [facility] Comment on above: Performed By: #### L 500.2500, L503.6550, L503.6030, L100.0100 ####[facility] [address] [place], [address] GFR/1.73 sq M.predicted among non-blacks MDRD (S/P/Bld) [Vol rate/Area] 20 mL/min/{1.73_m2} Low >60 [facility] Comment on above: Result Comment: mL/m in/1.73m2 CKD-EPI Creatinine Equation (2020) Performed By: #### L 500.2500, L503.6550, L503.6030, L100.0100 ####[facility] [address] [place], [address] Glucose [Mass/Vol] 96 mg/dL Normal 70-99 [facility] Comment on above: Performed By: #### L 500.2500, L503.6550, L503.6030, L100.0100 ####[facility] [address] [place], [address] Potassium [Moles/Vol] 4.9 mmol/L Normal 3.3-5.1 [facility] Comment on above: Performed By: #### L 500.2500, L503.6550, L503.6030, L100.0100 ####[facility] [address] [place], [address] Sodium [Moles/Vol] 134 mmol/L Normal 133-145 [facility] Comment on above: Performed By: #### L 500.2500, L503.6550, L503.6030, L100.0100 ####[facility] [address] [place], [address] Urea nitrogen [Mass/Vol] 76 mg/dL High 4-19 [facility] Comment on above: Performed By: #### L 500.2500, L503.6550, L503.6030, L100.0100 ####[facility] [address] [place], [address] Basophil percentageOrdered B y: Vipul Concepcion on 03-03-2025 Basophils/100 WBC (Bld) 0.1 % 0-1 [facility] CBC W/Diff, Automatedon 02-05 Absolute Lymph 0.66 X10 3/uL Low 0.83-4.51 [facility] Comment on above: Performed By: #### L 500.2500, L503.6550, L503.6030, L100.0100 ####[facility] [address] [place], [address] Absolute Neut 13.5 X10 3/uL High 2.0-7.7 [facility] Comment on above: Performed By: #### L 500.2500, L503.6550, L503.6030, L100.0100 ####[facility] [address] [place], [address] Basophils/100 WBC (Bld) 0.1 % Normal 0-1 [facility] Comment on above: Performed By: #### L 500.2500, L503.6550, L503.6030, L100.0100 ####[facility] [address] [place], [address] Eosinophils/100 WBC (Bld) 0.3 % Normal 0-5 [facility] Comment on above: Performed By: #### L 500.2500, L503.6550, L503.6030, L100.0100 ####[facility] [address] [place], [address] Erythrocyte distribution width (RBC) [Ratio] 16.7 % High 11.6-14.6 [facility] Comment on above: Performed By: #### L 500.2500, L503.6550, L503.6030, L100.0100 ####[facility] [address] [place], [address] Hematocrit (Bld) [Volume fraction] 34.6 % Low 40-54 [facility] Comment on above: Performed By: #### L 500.2500, L503.6550, L503.6030, L100.0100 ####[facility] [address] [place], [address] Hemoglobin (Bld) [Mass/Vol] 11.9 g/dL Low 13.0-16.5 [facility] Comment on above: Performed By: #### L 500.2500, L503.6550, L503.6030, L100.0100 ####[facility] [address] [place], [address] IG% 0.600 Normal 0.0-0.9 [facility] Comment on above: Result Comment: IG% - Immature Granulocytes (promyelocytes, myelocytes andmetamyelocytes) > 1% indicates that a LEFT SHIFT is Present. Performed By: #### L 500.2500, L503.6550, L503.6030, L100.0100 ####[facility] [address] [place], [address] Lymphocytes/100 WBC (Bld) 4.4 % Low 19-41 [facility] Comment on above: Performed By: #### L 500.2500, L503.6550, L503.6030, L100.0100 ####[facility] [address] [place], [address] MCH (RBC) [Entitic mass] 33.6 pg High 27.0-32.0 [facility] Comment on above: Performed By: #### L 500.2500, L503.6550, L503.6030, L100.0100 ####[facility] [address] [place], [address] MCHC (RBC) [Mass/Vol] 34.4 g/dL Normal 32-36 [facility] Comment on above: Performed By: #### L 500.2500, L503.6550, L503.6030, L100.0100 ####[facility] [address] [place], [address] MCV (RBC) [Entitic vol] 97.7 fL High 80-94 [facility] Comment on above: Performed By: #### L 500.2500, L503.6550, L503.6030, L100.0100 ####[facility] [address] [place], [address] Monocytes/100 WBC (Bld) 4.4 % Normal 0-10 [facility] Comment on above: Performed By: #### L 500.2500, L503.6550, L503.6030, L100.0100 ####[facility] [address] [place], [address] Neutrophils/100 WBC (Bld) 90.2 % High 47-70 [facility] Comment on above: Performed By: #### L 500.2500, L503.6550, L503.6030, L100.0100 ####[facility] [address] [place], [address] Nucleated RBC (Bld) [#/Vol] 0 10*3/uL Normal 0-5 [facility] Comment on above: Performed By: #### L 500.2500, L503.6550, L503.6030, L100.0100 ####[facility] [address] [place], [address] Platelet mean volume (Bld) [Entitic vol] 10.9 fL Normal 6.2-12.0 [facility] Comment on above: Performed By: #### L 500.2500, L503.6550, L503.6030, L100.0100 ####[facility] [address] [place], [address] Platelets (Bld) [#/Vol] 403 10*3/uL Normal 150-450 [facility] Comment on above: Performed By: #### L 500.2500, L503.6550, L503.6030, L100.0100 ####[facility] [address] [place], [address] RBC (Bld) [#/Vol] 3.54 10*6/uL Low 4.6-6.2 [facility] Comment on above: Performed By: #### L 500.2500, L503.6550, L503.6030, L100.0100 ####[facility] [address] [place], [address] RDW SD 56.3 fl High 35.1-43.9 [facility] Comment on above: Performed By: #### L 500.2500, L503.6550, L503.6030, L100.0100 ####[facility] [address] [place], [address] WBC (Bld) [#/Vol] 15.0 10*3/uL High 4.4-11.0 [facility] Comment on above: Performed By: #### L 500.2500, L503.6550, L503.6030, L100.0100 ####[facility] [address] [place], [address] Carbon dioxide, total [Moles /volume] in Central venous bloodOrdered By: Vipul Concepcion on 03-03-2025 CO2 [Moles/Vol] 25.3 mmol/L 21.0-32.0 [facility] Chloride assayOrdered By: Sukhjinder Concepcion on 03-03-2025 Chloride [Moles/Vol] 95 mmol/L Low 98-108 [facility] Eosinophil percentageOrdered By: Vipul Concepcion on 03-03-2025 Eosinophils/100 WBC (Bld) 0.3 % 0-5 [facility] Erythrocyte distribution wid th ratioOrdered By: Vipul Concepcion on 03-03-2025 Erythrocyte distribution width (RBC) [Ratio] 16.7 % High 11.6-14.6 [facility] Erythrocyte distribution wid th standard deviationOrdered By: Vipul Concepcion on 03-03-2025 Erythrocyte distribution width (RBC) [Ratio] 56.3 fl High 35.1-43.9 [facility] Ferritinon 03-03-2025 Ferritin [Mass/Vol] 813 ng/mL High 37-417 [facility] Comment on above: Performed By: #### L 500.2500, L503.6550, L503.6030, L100.0100 ####[facility] [address] [place], [place], [address] Glomerular filtration rate ( GFR) estimation/1.73 sq m using serum, plasma, or whole bOrdered By: Vipul Concepcion on 03-03-2025 GFR/1.73 sq M.predicted among non-blacks MDRD (S/P/Bld) [Vol rate/Area] 20 mL/min/{1.73_m2} Low >60 [facility] Hematocrit Auto (Bld) [Volum e fraction]Ordered By: Vipul Concepcion on 03-03-2025 Hematocrit (Bld) [Volume fraction] 34.6 % Low 40-54 [facility] Hemoglobin measurementOrdere d By: Vipul Concepcion on 03-03-2025 Hemoglobin (Bld) [Mass/Vol] 11.9 g/dL Low 13.0-16.5 [facility] Immature granulocytes/100 WB C Auto (Bld)Ordered By: Vipul Concepcion on 03-03-2025 Immature granulocytes/100 WBC (Bld) 0.600 % 0.0-0.9 [facility] Iron measurement (mass/mass) Ordered By: Vipul Concepcion on 03-03-2025 Iron (Unsp spec) [Mass/Mass] 48 ug/dL Low 65-175 [facility] Iron+Iron Binding Capacityon 03-03-2025 TIBC TNP Normal 250-450 [facility] Comment on above: Performed By: #### L 500.2500, L503.6550, L503.6030, L100.0100 ####[facility] [address] [place], [address] MCV (mean corpuscular volume ) determinationOrdered By: Vipul Concepcion on 03-03-2025 MCV (RBC) [Entitic vol] 97.7 fL High 80-94 [facility] Mean corpuscular hemoglobin (MCH) determinationOrdered By: Vipul Concepcion on 03-03-2025 MCH (RBC) [Entitic mass] 33.6 pg High 27.0-32.0 [facility] Monocyte percentageOrdered B y: Vipul Concepcion on 03-03-2025 Monocytes/100 WBC (Bld) 4.4 % 0-10 [facility] Neutrophil percentageOrdered By: Vipul Concepcion on 03-03-2025 Neutrophils/100 WBC (Bld) 90.2 % High 47-70 [facility] No Panel InformationOrdered By: Vipul Concepcion on 03-03-2025 150 ug/dL Low 228-428 [facility] Platelet countOrdered By: Sukhjinder ttyasmin Concepcion on 03-03-2025 Platelets (Bld) [#/Vol] 403 10*3/uL 150-450 [facility] Potassium measurement (mass/ volume)Ordered By: Vipul Concepcion on 03-03-2025 Potassium (Unsp spec) [Mass/Vol] 4.9 mmol/L 3.3-5.1 [facility] RBC Auto (Bld) [#/Vol]Ordere d By: Vipul Concepcion on 03-03-2025 RBC (Bld) [#/Vol] 3.54 10*6/uL Low 4.6-6.2 [facility] Serum creatinine measurement (mass/volume)Ordered By: Vipul Concepcion on 03-03-2025 Creatinine [Mass/Vol] 2.89 mg/dL High 0.70-1.20 [facility] Serum glucose measurement (m ass/volume)Ordered By: Vipul Concepcion on 03-03-2025 Glucose [Mass/Vol] 96 mg/dL 70-99 [facility] Serum or plasma calcium harley urement (mass/volume)Ordered By: Vipul Concepcion on 03-03-2025 Calcium [Mass/Vol] 9.6 mg/dL 7.6-11.0 [facility] Serum or plasma ferritin jaelyn surement (mass/volume)Ordered By: Vipul Concepcion on 03-03-2025 Ferritin [Mass/Vol] 813 ng/mL High 37-417 [facility] Serum or plasma iron saturat ion measurement (mass fraction)Ordered By: Vipul Concepcion on 03-03-2025 Iron saturation [Mass fraction] 24.0 % 9-55 [facility] Serum or plasma urea nitroge n measurement (mass/volume)Ordered By: Vipul Concepcion on 03-03-2025 Urea nitrogen [Mass/Vol] 76 mg/dL High 4-19 [facility] Sodium levelOrdered By: Clinton Concepcion on 03-03-2025 Sodium [Moles/Vol] 134 mmol/L 133-145 [facility] US ABD AORTA COMPLETE VAS LA Bon 03-03-2025 US ABD AORTA COMPLETE VAS LAB Non-Invasive Vascular Laboratory [facility] Abdominal Aorta Bilateral/Complete Date of service/time: 03/03/2025 8:13:01 AM Name: MR. 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 TECHNIQUE -------- An aortic duplex ultrasound examination was performed, including grayscale imaging and color Doppler and spectral Doppler examination of abdominal aorta as well as the below mentioned arteries. FINDINGS -------- AORTA Proximal: PSV: 50 cm/s. EDV: 10 cm/s. 2.88 cm x 2.85 cm At renal: PSV: 55 cm/s. EDV: 0 cm/s. 2.04 cm Aortobiiliac graft mid PSV: 31 cm/s. EDV: 10 cm/s. Aortobiiliac graft distal PSV: 35 cm/s. EDV: 0 cm/s. Right limb mid PSV: 128 cm/s. EDV: 0 cm/s. Right external iliac artery proximal PSV: 89 cm/s. EDV: 0 cm/s. Right external iliac artery mid PSV: 91 cm/s. EDV: 0 cm/s. Right external iliac artery distal PSV: 329 cm/s. EDV: 0 cm/s. Left common femoral artery mid PSV: 121 cm/s. EDV: 12 cm/s. Right profunda artery origin PSV: 94 cm/s. EDV: 0 cm/s. Right superficial femoral artery origin PSV: 0 cm/s. EDV: 0 cm/s. Left limb mid PSV: 109 cm/s. EDV: 0 cm/s. Left external iliac artery proximal PSV: 66 cm/s. EDV: 0 cm/s. Left external iliac artery mid PSV: 156 cm/s. EDV: 0 cm/s. Left external iliac artery distal PSV: 218 cm/s. EDV: 0 cm/s. Left common femoral artery PSV: 108 cm/s. EDV: 23 cm/s. Left profunda artery origin PSV: 274 cm/s. EDV: 25 cm/s. Left superficial femoral artery origin PSV: 0 cm/s. EDV: 0 cm/s. IMPRESSION Technically difficult exam due to heavy breathing and coughing. 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 Aortobiiliac graft and limbs are patent. ARTERIES/GRAFT Aortobiiliac graft : patent . Right limb : patent . Right external iliac artery distal: 50-99% stenosis . Right common femoral artery : patent . Right profunda artery proximal: patent . Right superficial femoral artery origin: occluded . Left limb : patent . Left external iliac artery mid: 50-99% stenosis . Left common femoral artery : patent . Left profunda artery origin: 50-99% stenosis . Left superficial femoral artery origin: occluded . Technologist: Ade Austin T Ordering physician: DARRYL MALLORY Interpreting physician: Genaro Asher MD, RANJEET Final CC sarvaMAIL [facility] Image : [id number] ISUID See Link below for Image Normal [facility] White blood cell (WBC) count Ordered By: Vipul Concepcion on 03-03-2025 WBC (Bld) [#/Vol] 15.0 10*3/uL High 4.4-11.0 [facility] CNOVon 02-25-2025 CNOV Office Visit (PODIWS ) DESIREE AMES ([id number]) 1935 M Date Time Provider Department 02/25/25 1:15 PM VIPUL RICHARD PODIWS During your visit today, we recorded the following information about you: Vipul Richard 02/26/2025 7:25 AM Signed Last saw pcp: not in chart Subjective: Patient presents to clinic c/o painful toenails. They state that the nails are especially painful with shoe gear and pressure. Patient states that nails b/l hallux are painful. Patient admits to being diabetic. No other pedal complaints at this time. Patient states no change in medications or medical history since last visit. Objective: Patient presents to clinic ambulating in [facility] Vasc: DP and PT pulses are [...] mellitus (HCC) (I73.9) PAD (peripheral artery disease) Plan: Patient was seen and evaluated. Nails 1-5 bilateral were debrided in length and thickness. Patient was instructed on the continued importance of diabetic foot care along with proper diet and keeping their blood sugar under control to prevent complications. I stressed the importance of avoiding barefoot walking, wearing good shoes and inspection of feet Patient is to RTC in 3-4 months. TYSON Chauhan Matthew 02/25/2025 1:29 PM Signed Recommend voltaren gel, over the counter, to be applied daily for any foot related pain Diabetes Foot Care Instructions When you have [...] (or decreased sensation in your feet) a instructor dramatic arts should always cut your toenails. Be Careful [...] your shoes are too tight. Perform the marisol (more content not included)... Normal [facility] Anion gap in Serum or Plasma Ordered By: Inocencio Perkins on 02-22-2025 Anion gap [Moles/Vol] 15 mmol/L 5-15 [facility] BUN/creatinine ratioOrdered By: Inocencio Perkins on 02-22-2025 Urea nitrogen/Creatinine [Mass ratio] 33.7 mg/mg High 07-26 [facility] Basic Metabolic Profile (BMP )on 02-22-2025 BUN/CRE 33.7 RATIO High 07-26 [facility] Comment on above: Performed By: #### L 500.2500, L100.0600 ####[facility] [address] [place], [address] Calcium [Mass/Vol] 9.5 mg/dL Normal 7.6-11.0 [facility] Comment on above: Performed By: #### L 500.2500, L100.0600 ####[facility] [address] [place], [address] Chloride [Moles/Vol] 93 mmol/L Low 98-108 [facility] Comment on above: Performed By: #### L 500.2500, L100.0600 ####[facility] [address] [place], [address] CO2 [Moles/Vol] 22.5 mmol/L Normal 21.0-32.0 [facility] Comment on above: Performed By: #### L 500.2500, L100.0600 ####[facility] [address] [place], [address] Creatinine [Mass/Vol] 2.41 mg/dL High 0.70-1.20 [facility] Comment on above: Performed By: #### L 500.2500, L100.0600 ####[facility] [address] [place], [address] ECRCL 23.58 ml/min Low 50-250 [facility] Comment on above: Performed By: #### L 500.2500, L100.0600 ####[facility] [address] [place], [address] GAP 15 Normal 5-15 [facility] Comment on above: Performed By: #### L 500.2500, L100.0600 ####[facility] [address] [place], [address] GFR/1.73 sq M.predicted among non-blacks MDRD (S/P/Bld) [Vol rate/Area] 25 mL/min/{1.73_m2} Low >60 [facility] Comment on above: Result Comment: mL/m in/1.73m2 CKD-EPI Creatinine Equation (2020) Performed By: #### L 500.2500, L100.0600 ####[facility] [address] [place], [address] Glucose [Mass/Vol] 220 mg/dL High 70-99 [facility] Comment on above: Performed By: #### L 500.2500, L100.0600 ####[facility] [address] [place], [address] Potassium [Moles/Vol] 4.7 mmol/L Normal 3.3-5.1 [facility] Comment on above: Performed By: #### L 500.2500, L100.0600 ####[facility] [address] [place], [address] Sodium [Moles/Vol] 130 mmol/L Low 133-145 [facility] Comment on above: Performed By: #### L 500.2500, L100.0600 ####[facility] [address] [place], [address] Urea nitrogen [Mass/Vol] 81 mg/dL High 4-19 [facility] Comment on above: Performed By: #### L 500.2500, L100.0600 ####[facility] [address] [place], [address] Carbon dioxide, total [Moles /volume] in Central venous bloodOrdered By: Inocencio Perkins on 02-22-2025 CO2 [Moles/Vol] 22.5 mmol/L 21.0-32.0 [facility] Chloride assayOrdered By: Sukhjinder Perkins on 02-22-2025 Chloride [Moles/Vol] 93 mmol/L Low 98-108 [facility] Discharge Instructionon 02-04 Discharge Instruction Normal [facility] Electrocardiogram reportOrde red By: Nabil Pierre on 02-22-2025 EKG study [facility] Work Phone: EKG study [facility] Work Phone: Glomerular filtration rate ( GFR) estimation/1.73 sq m using serum, plasma, or whole bOrdered By: Inocencio Perkins on 02-22-2025 GFR/1.73 sq M.predicted among non-blacks MDRD (S/P/Bld) [Vol rate/Area] 25 mL/min/{1.73_m2} Low >60 [facility] HH, Hemoglobin AND Hematocri ton 02-22-2025 Hematocrit (Bld) [Volume fraction] 30.4 % Low 40-54 [facility] Comment on above: Performed By: #### L 500.2500, L100.0600 ####[facility] [address] [place], [address] Hemoglobin (Bld) [Mass/Vol] 10.9 g/dL Low 13.0-16.5 [facility] Comment on above: Performed By: #### L 500.2500, L100.0600 ####[facility] [address] [place], [address] Hematocrit Auto (Bld) [Volum e fraction]Ordered By: Inocencio Perkins on 02-22-2025 Hematocrit (Bld) [Volume fraction] 30.4 % Low 40-54 [facility] Hemoglobin measurementOrdere d By: Inocencio Perkins on 02-22-2025 Hemoglobin (Bld) [Mass/Vol] 10.9 g/dL Low 13.0-16.5 [facility] Potassium measurement (mass/ volume)Ordered By: Inocencio Perkins on 02-22-2025 Potassium (Unsp spec) [Mass/Vol] 4.7 mmol/L 3.3-5.1 [facility] Respiratory Cultureon 2024 RESPC Normal [facility] Comment on above: Performed By: #### M 100.2000, M100.2400 ####[facility] [address] [place], [address] Serum creatinine measurement (mass/volume)Ordered By: Inocencio Perkins on 02-22-2025 Creatinine [Mass/Vol] 2.41 mg/dL High 0.70-1.20 [facility] Serum glucose measurement (m ass/volume)Ordered By: Inocencio Perkins on 02-22-2025 Glucose [Mass/Vol] 220 mg/dL High 70-99 [facility] Serum or plasma calcium harley urement (mass/volume)Ordered By: Inocencio Perkins on 02-22-2025 Calcium [Mass/Vol] 9.5 mg/dL 7.6-11.0 [facility] Serum or plasma urea nitroge n measurement (mass/volume)Ordered By: Inocencio Perkins on 02-22-2025 Urea nitrogen [Mass/Vol] 81 mg/dL High 4-19 [facility] Sodium levelOrdered By: Inocencio Perkins on 02-22-2025 Sodium [Moles/Vol] 130 mmol/L Low 133-145 [facility] Basic Metabolic Profile (BMP )on 02-21-2025 BUN/CRE 29.3 RATIO High 10-20 [facility] Comment on above: Performed By: #### L 500.2500 ####[facility] [address] [facility] [address] Calcium [Mass/Vol] 9.5 mg/dL Normal 7.6-11.0 [facility] Comment on above: Performed By: #### L 500.2500 ####[facility] [address] [place], [address] Chloride [Moles/Vol] 93 mmol/L Low 98-108 [facility] Comment on above: Performed By: #### L 500.2500 ####[facility] [address] [facility] [address] CO2 [Moles/Vol] 23.0 mmol/L Normal 21.0-32.0 [facility] Comment on above: Performed By: #### L 500.2500 ####[facility] [address] [place], [address] Creatinine [Mass/Vol] 2.72 mg/dL High 0.70-1.20 [facility] Comment on above: Performed By: #### L 500.2500 ####[facility] [address] [place], [address] ECRCL 20.89 ml/min Low 50-250 [facility] Comment on above: Performed By: #### L 500.2500 ####[facility] [address] [place], [address] GAP 13 Normal 5-15 [facility] Comment on above: Performed By: #### L 500.2500 ####[facility] [address] [place], [address] GFR/1.73 sq M.predicted among non-blacks MDRD (S/P/Bld) [Vol rate/Area] 22 mL/min/{1.73_m2} Low >60 [facility] Comment on above: Result Comment: mL/m in/1.73m2 CKD-EPI Creatinine Equation (2020) Performed By: #### L 500.2500 ####[facility] [address] [place], [address] Glucose [Mass/Vol] 227 mg/dL High 70-99 [facility] Comment on above: Performed By: #### L 500.2500 ####[facility] [address] [place], [address] Potassium [Moles/Vol] 4.7 mmol/L Normal 3.3-5.1 [facility] Comment on above: Performed By: #### L 500.2500 ####[facility] [address] [place], [address] Sodium [Moles/Vol] 129 mmol/L Low 133-145 [facility] Comment on above: Performed By: #### L 500.2500 ####[facility] [address] [place], [address] Urea nitrogen [Mass/Vol] 80 mg/dL High 4-19 [facility] Comment on above: Performed By: #### L 500.2500 ####[facility] [address] [place], [address] Bedside Glucoseon 02-21-2025 FINGERSTICK GLU 146 mg/dL High 74-106 [facility] Comment on above: Result Comment: ERIKA ALONZO OF PATIENT CARE PER NURSING PROTOCOL Performed By: #### L 501.080 ####[facility] [address] [place], [place], [phone] Glucose measurement at [facility] deOrdered By: Inocencio Perkins on 02-21-2025 Glucose [Mass/Vol] 146 mg/dL High 74-106 [facility] Gram Stainon 02-21-2025 GS Acceptable Specimen? Yes (<25 Epithelial cells per/lpf) Gram Stain 1+ Epithelial cells 2+ Gram positive cocci 2+ Gram positive rods 2+ Gram negative rods 1+ White Blood Cells Normal [facility] Comment on above: Performed By: #### M 100.2000, M100.2400 ####[facility] [address] [place], [address] 12 Lead EKGon 02-20-2025 12 Lead EKG Normal [facility] Absolute lymphocyte countOrd ered By: Hansel Gillsi on 02-20-2025 Lymphocytes Auto (Unsp spec) [#/Vol] 0.56 10*3/uL Low 0.83-4.51 [facility] Automated lymphocyte count a s percentage of total leukocytesOrdered By: Hansel Gillis on 02-20-2025 Lymphocytes/100 WBC Auto (Unsp spec) 6.3 % Low 19-41 [facility] Basophil percentageOrdered B y: Hansel Gillis on 02-20-2025 Basophils/100 WBC (Bld) 0.5 % 0-1 [facility] Bedside Glucoseon 02-20-2025 FINGERSTICK GLU 142 mg/dL High 74-106 [facility] Comment on above: Result Comment: ERIKA GEMENT OF PATIENT CARE PER NURSING PROTOCOL Performed By: #### L 501.080 ####[facility] [address] [place], [place], [id number] FINGERSTICK GLU 158 mg/dL High 74-106 [facility] Comment on above: Result Comment: ERIKA GEMENT OF PATIENT CARE PER NURSING PROTOCOL Performed By: #### L 501.080 ####[facility] [address] [place], [place], [phone] Bilirubin directOrdered By: Hansel Gillis on 02-20-2025 Bilirubin.direct [Mass/Vol] 0.24 mg/dL 0.00-0.30 [facility] Bilirubin, Directon 02-21-20 Bilirubin.direct [Mass/Vol] 0.24 mg/dL Normal 0.00-0.30 [facility] Comment on above: Performed By: #### L 300.3900, L501.4700, L500.4050, L501.5200, L100.0100, L501.9520, L501.2300 ####[facility] [address] [place], [address] Bilirubin, totalOrdered By: Hansel Gillis on 02-20-2025 Bilirubin [Mass/Vol] 0.38 mg/dL 0.00-1.30 [facility] CBC W/Diff, Automatedon 02-04 Absolute Lymph 0.56 X10 3/uL Low 0.83-4.51 [facility] Comment on above: Performed By: #### L 300.3900, L501.4700, L500.4050, L501.5200, L100.0100, L501.9520, L501.2300 ####[facility] [address] [place], [address](143) Absolute Neut 7.1 X10 3/uL Normal 2.0-7.7 [facility] Comment on above: Performed By: #### L 300.3900, L501.4700, L500.4050, L501.5200, L100.0100, L501.9520, L501.2300 ####[facility] [address] [place], [address] Basophils/100 WBC (Bld) 0.5 % Normal 0-1 [facility] Comment on above: Performed By: #### L 300.3900, L501.4700, L500.4050, L501.5200, L100.0100, L501.9520, L501.2300 ####[facility] [address] [place], [address] Eosinophils/100 WBC (Bld) 0.8 % Normal 0-5 [facility] Comment on above: Performed By: #### L 300.3900, L501.4700, L500.4050, L501.5200, L100.0100, L501.9520, L501.2300 ####[facility] [address] [place], [address] Erythrocyte distribution width (RBC) [Ratio] 14.6 % Normal 11.6-14.6 [facility] Comment on above: Performed By: #### L 300.3900, L501.4700, L500.4050, L501.5200, L100.0100, L501.9520, L501.2300 ####[facility] [address] [place], [address] Hematocrit (Bld) [Volume fraction] 27.2 % Low 40-54 [facility] Comment on above: Performed By: #### L 300.3900, L501.4700, L500.4050, L501.5200, L100.0100, L501.9520, L501.2300 ####[facility] [address] [place], [address] Hemoglobin (Bld) [Mass/Vol] 10.2 g/dL Low 13.0-16.5 [facility] Comment on above: Performed By: #### L 300.3900, L501.4700, L500.4050, L501.5200, L100.0100, L501.9520, L501.2300 ####[facility] [address] [place], [address] IG% 1.900 High 0.0-0.9 [facility] Comment on above: Result Comment: IG% - Immature Granulocytes (promyelocytes, myelocytes andmetamyelocytes) > 1% indicates that a LEFT SHIFT is Present. Performed By: #### L 300.3900, L501.4700, L500.4050, L501.5200, L100.0100, L501.9520, L501.2300 ####[facility] [address] [place], [address] Lymphocytes/100 WBC (Bld) 6.3 % Low 19-41 [facility] Comment on above: Performed By: #### L 300.3900, L501.4700, L500.4050, L501.5200, L100.0100, L501.9520, L501.2300 ####[facility] [address] [place], [address] MCH (RBC) [Entitic mass] 35.5 pg High 27.0-32.0 [facility] Comment on above: Performed By: #### L 300.3900, L501.4700, L500.4050, L501.5200, L100.0100, L501.9520, L501.2300 ####[facility] [address] [place], [address] MCHC (RBC) [Mass/Vol] 37.5 g/dL High 32-36 [facility] Comment on above: Performed By: #### L 300.3900, L501.4700, L500.4050, L501.5200, L100.0100, L501.9520, L501.2300 ####[facility] [address] [place], [address] MCV (RBC) [Entitic vol] 94.8 fL High 80-94 [facility] Comment on above: Performed By: #### L 300.3900, L501.4700, L500.4050, L501.5200, L100.0100, L501.9520, L501.2300 ####[facility] [address] [place], [address] Monocytes/100 WBC (Bld) 10.3 % High 0-10 [facility] Comment on above: Performed By: #### L 300.3900, L501.4700, L500.4050, L501.5200, L100.0100, L501.9520, L501.2300 ####[facility] [address] [place], [address] Neutrophils/100 WBC (Bld) 80.2 % High 47-70 [facility] Comment on above: Performed By: #### L 300.3900, L501.4700, L500.4050, L501.5200, L100.0100, L501.9520, L501.2300 ####[facility] [address] [place], [address] Nucleated RBC (Bld) [#/Vol] 0 10*3/uL Normal 0-5 [facility] Comment on above: Performed By: #### L 300.3900, L501.4700, L500.4050, L501.5200, L100.0100, L501.9520, L501.2300 ####[facility] [address] [place], [address] Platelet mean volume (Bld) [Entitic vol] 10.2 fL Normal 6.2-12.0 [facility] Comment on above: Performed By: #### L 300.3900, L501.4700, L500.4050, L501.5200, L100.0100, L501.9520, L501.2300 ####[facility] [address] [place], [address] Platelets (Bld) [#/Vol] 524 10*3/uL High 150-450 [facility] Comment on above: Performed By: #### L 300.3900, L501.4700, L500.4050, L501.5200, L100.0100, L501.9520, L501.2300 ####[facility] [address] [place], [address] RBC (Bld) [#/Vol] 2.87 10*6/uL Low 4.6-6.2 [facility] Comment on above: Performed By: #### L 300.3900, L501.4700, L500.4050, L501.5200, L100.0100, L501.9520, L501.2300 ####[facility] [address] [place], [address] RDW SD 46.8 fl High 35.1-43.9 [facility] Comment on above: Performed By: #### L 300.3900, L501.4700, L500.4050, L501.5200, L100.0100, L501.9520, L501.2300 ####[facility] [address] [place], [address] WBC (Bld) [#/Vol] 8.8 10*3/uL Normal 4.4-11.0 [facility] Comment on above: Performed By: #### L 300.3900, L501.4700, L500.4050, L501.5200, L100.0100, L501.9520, L501.2300 ####[facility] [address] [place], [address] Comprehensive Metabolic Prof kson 02-20-2025 Albumin [Mass/Vol] 3.3 g/dL Low 3.4-4.8 [facility] Comment on above: Performed By: #### L 300.3900, L501.4700, L500.4050, L501.5200, L100.0100, L501.9520, L501.2300 ####[facility] [address] [place], [place], [address] Albumin/Globulin [Mass ratio] 1.0 {ratio} Normal 0.9-2.4 [facility] Comment on above: Performed By: #### L 300.3900, L501.4700, L500.4050, L501.5200, L100.0100, L501.9520, L501.2300 ####[facility] [address] [place], [address] ALK PHOS 75 U/L Normal 40-129 [facility] Comment on above: Performed By: #### L 300.3900, L501.4700, L500.4050, L501.5200, L100.0100, L501.9520, L501.2300 ####[facility] [address] [place], [address] ALT [Catalytic activity/Vol] 18 U/L Normal <=46 [facility] Comment on above: Performed By: #### L 300.3900, L501.4700, L500.4050, L501.5200, L100.0100, L501.9520, L501.2300 ####[facility] [address] [place], [address] AST [Catalytic activity/Vol] 22 U/L Normal <=37 [facility] Comment on above: Performed By: #### L 300.3900, L501.4700, L500.4050, L501.5200, L100.0100, L501.9520, L501.2300 ####[facility] [address] [place], [address] Bilirubin [Mass/Vol] 0.38 mg/dL Normal 0.00-1.30 [facility] Comment on above: Performed By: #### L 300.3900, L501.4700, L500.4050, L501.5200, L100.0100, L501.9520, L501.2300 ####[facility] [address] [place], [address] BUN/CRE 24.2 RATIO High 10-20 [facility] Comment on above: Performed By: #### L 300.3900, L501.4700, L500.4050, L501.5200, L100.0100, L501.9520, L501.2300 ####[facility] [address] [place], [address] Calcium [Mass/Vol] 9.1 mg/dL Normal 7.6-11.0 [facility] Comment on above: Performed By: #### L 300.3900, L501.4700, L500.4050, L501.5200, L100.0100, L501.9520, L501.2300 ####[facility] [address] [place], [address] Chloride [Moles/Vol] 97 mmol/L Low 98-108 [facility] Comment on above: Performed By: #### L 300.3900, L501.4700, L500.4050, L501.5200, L100.0100, L501.9520, L501.2300 ####[facility] [address] [place], [address] CO2 [Moles/Vol] 21.2 mmol/L Normal 21.0-32.0 [facility] Comment on above: Performed By: #### L 300.3900, L501.4700, L500.4050, L501.5200, L100.0100, L501.9520, L501.2300 ####[facility] [address] [place], [place], [address] Creatinine [Mass/Vol] 3.05 mg/dL High 0.70-1.20 [facility] Comment on above: Performed By: #### L 300.3900, L501.4700, L500.4050, L501.5200, L100.0100, L501.9520, L501.2300 ####[facility] [address] [place], [place], [address] ECRCL 18.63 ml/min Low 50-250 [facility] Comment on above: Performed By: #### L 300.3900, L501.4700, L500.4050, L501.5200, L100.0100, L501.9520, L501.2300 ####[facility] [address] [place], [place], [address] GAP 15 Normal 5-15 [facility] Comment on above: Performed By: #### L 300.3900, L501.4700, L500.4050, L501.5200, L100.0100, L501.9520, L501.2300 ####[facility] [address] [place], [place], [address] GFR/1.73 sq M.predicted among non-blacks MDRD (S/P/Bld) [Vol rate/Area] 19 mL/min/{1.73_m2} Low >60 [facility] Comment on above: Result Comment: mL/m in/1.73m2 CKD-EPI Creatinine Equation (2020) Performed By: #### L 300.3900, L501.4700, L500.4050, L501.5200, L100.0100, L501.9520, L501.2300 ####[facility] [address] [place], [address] Globulin (S) [Mass/Vol] 3.2 g/dL Normal 2.2-4.2 [facility] Comment on above: Performed By: #### L 300.3900, L501.4700, L500.4050, L501.5200, L100.0100, L501.9520, L501.2300 ####[facility] [address] [place], [address] Glucose [Mass/Vol] 194 mg/dL High 70-99 [facility] Comment on above: Performed By: #### L 300.3900, L501.4700, L500.4050, L501.5200, L100.0100, L501.9520, L501.2300 ####[facility] [address] [place], [address] Potassium [Moles/Vol] 4.8 mmol/L Normal 3.3-5.1 [facility] Comment on above: Performed By: #### L 300.3900, L501.4700, L500.4050, L501.5200, L100.0100, L501.9520, L501.2300 ####[facility] [address] [place], [address] Sodium [Moles/Vol] 133 mmol/L Normal 133-145 [facility] Comment on above: Performed By: #### L 300.3900, L501.4700, L500.4050, L501.5200, L100.0100, L501.9520, L501.2300 ####[facility] [address] [place], [address] T PROT 6.6 g/dL Normal 5.9-8.4 [facility] Comment on above: Performed By: #### L 300.3900, L501.4700, L500.4050, L501.5200, L100.0100, L501.9520, L501.2300 ####[facility] [address] [place], [place], [phone] Urea nitrogen [Mass/Vol] 74 mg/dL High 4-19 [facility] Comment on above: Performed By: #### L 300.3900, L501.4700, L500.4050, L501.5200, L100.0100, L501.9520, L501.2300 ####[facility] [address] [place], [place], [phone] Eosinophil percentageOrdered By: Hansel Gillis on 02-20-2025 Eosinophils/100 WBC (Bld) 0.8 % 0-5 [facility] Erythrocyte distribution wid th ratioOrdered By: Hansel Gillis on 02-20-2025 Erythrocyte distribution width (RBC) [Ratio] 14.6 % 11.6-14.6 [facility] Erythrocyte distribution wid th standard deviationOrdered By: Hansel Gillis on 02-20-2025 Erythrocyte distribution width (RBC) [Ratio] 46.8 fl High 35.1-43.9 [facility] Immature granulocytes/100 WB C Auto (Bld)Ordered By: Hansel Gillis on 02-20-2025 Immature granulocytes/100 WBC (Bld) 1.900 % High 0.0-0.9 [facility] MCV (mean corpuscular volume ) determinationOrdered By: Hansel Gillis on 02-20-2025 MCV (RBC) [Entitic vol] 94.8 fL High 80-94 [facility] Magnesiumon 02-20-2025 Magnesium [Mass/Vol] 2.5 mg/dL High 1.5-2.2 [facility] Comment on above: Performed By: #### L 300.3900, L501.4700, L500.4050, L501.5200, L100.0100, L501.9520, L501.2300 ####[facility] [address] [place], [place], [phone] Magnesium measurement (mass/ volume)Ordered By: Hansel Gillis on 02-20-2025 Magnesium (Unsp spec) [Mass/Vol] 2.5 mg/dL High 1.5-2.2 [facility] Mean corpuscular hemoglobin (MCH) determinationOrdered By: Hansel Gillis on 02-20-2025 MCH (RBC) [Entitic mass] 35.5 pg High 27.0-32.0 [facility] Monocyte percentageOrdered B y: Hansel Gillis on 02-20-2025 Monocytes/100 WBC (Bld) 10.3 % High 0-10 [facility] Neutrophil percentageOrdered By: Hansel Gillis on 02-20-2025 Neutrophils/100 WBC (Bld) 80.2 % High 47-70 [facility] No Panel InformationOrdered By: Hansel Gillis on 02-20-2025 22 U/L <38 [facility] Phosphoruson 02-20-2025 Phosphate [Mass/Vol] 5.1 mg/dL High 2.7-4.5 [facility] Comment on above: Performed By: #### L 300.3900, L501.4700, L500.4050, L501.5200, L100.0100, L501.9520, L501.2300 ####[facility] [address] [place], [place], [phone] Platelet countOrdered By: Birgit Gillis on 02-20-2025 Platelets (Bld) [#/Vol] 524 10*3/uL High 150-450 [facility] Potassiumon 02-20-2025 Potassium [Moles/Vol] 4.6 mmol/L Normal 3.3-5.1 [facility] Comment on above: Performed By: #### L 501.5600 ####[facility] [address] [place], [place], [phone] Prothrombin Time w/INRon INR Coag (PPP) [Relative time] 1.6 {INR} Normal [facility] Comment on above: Performed By: #### L 300.3900, L501.4700, L500.4050, L501.5200, L100.0100, L501.9520, L501.2300 ####[facility] [address] [place], [address] PT Coag (PPP) [Time] 19.6 s High 11.7-14.9 [facility] Comment on above: Performed By: #### L 300.3900, L501.4700, L500.4050, L501.5200, L100.0100, L501.9520, L501.2300 ####[facility] [address] [place], [address] Prothrombin timeOrdered By: Hansel Gillis on 02-20-2025 PT Coag (PPP) [Time] 19.6 s High 11.7-14.9 [facility] RBC Auto (Bld) [#/Vol]Ordere d By: Hansel Gillis on 02-20-2025 RBC (Bld) [#/Vol] 2.87 10*6/uL Low 4.6-6.2 [facility] RESPIRATORY PANEL MOLECULARo n 02-20-2025 RP PANEL Normal [facility] Comment on above: Performed By: #### M 100.638, M100.019 ####[facility] [address] [place], [address] Serum globulin measurementOr dered By: Hansel Gillis on 02-20-2025 Globulin (S) [Mass/Vol] 3.2 g/dL 2.2-4.2 [facility] Serum or plasma alanine whaley otransferase (ALT) measurementOrdered By: Hansel Gillis on 02-20-2025 ALT [Catalytic activity/Vol] 18 U/L <47 [facility] Serum or plasma albumin harley urement (mass/volume)Ordered By: Hansel Gillis on 02-20-2025 Albumin [Mass/Vol] 3.3 g/dL Low 3.4-4.8 [facility] Serum or plasma albumin/glob ulin mass ratioOrdered By: Hansel Gillis on 02-20-2025 Albumin/Globulin [Mass ratio] 1.0 {ratio} 0.9-2.4 [facility] Serum or plasma alkaline donell sphatase measurementOrdered By: Hansel Gillis on 02-20-2025 ALP [Catalytic activity/Vol] 75 U/L 40-129 [facility] TSH DL <= 0.005 mIU/L QnOrde red By: Hansel Gillis on 02-20-2025 TSH Qn 1.030 uIU/mL 0.300-4.200 [facility] Thyroid Stim Hormone (TSH)on 02-20-2025 TSH 1.030 uIU/mL Normal 0.300-4.200 [facility] Comment on above: Performed By: #### L 300.3900, L501.4700, L500.4050, L501.5200, L100.0100, L501.9520, L501.2300 ####[facility] [address] [place], [place], [phone] Total proteinOrdered By: Abby Gillis on 02-20-2025 Protein [Mass/Vol] 6.6 g/dL 5.9-8.4 [facility] White blood cell (WBC) count Ordered By: Hansel Gillis on 02-20-2025 WBC (Bld) [#/Vol] 8.8 10*3/uL 4.4-11.0 [facility] 12 Lead EKGon 02-19-2025 12 Lead EKG Normal [facility] Absolute lymphocyte countOrd ered By: Aaliyah Collins on 02-19-2025 Lymphocytes Auto (Unsp spec) [#/Vol] 0.63 10*3/uL Low 0.83-4.51 [facility] Anion gap in Serum or Plasma Ordered By: Aaliyah Collins on 02-19-2025 Anion gap [Moles/Vol] 14 mmol/L 5-15 [facility] Automated blood erythrocyte countOrdered By: Aaliyah Collins on 02-19-2025 RBC (Bld) [#/Vol] 3.74 10*6/uL Low 4.6-6.2 [facility] Comment on above: Performed By: #### L 100.0100, L500.2500 ####[facility] [address] [place], [address] Automated blood hematocrit ( percentage)Ordered By: Aaliyah Collins on 02-19-2025 Hematocrit (Bld) [Volume fraction] 34.5 % Low 40-54 [facility] Comment on above: Performed By: #### L 100.0100, L500.2500 ####[facility] [address] [place], [address] Automated lymphocyte count a s percentage of total leukocytesOrdered By: Aaliyah Collins on 02-19-2025 Lymphocytes/100 WBC Auto (Unsp spec) 5.2 % Low 19-41 [facility] BUN/creatinine ratioOrdered By: Aaliyah Collins on 02-19-2025 Urea nitrogen/Creatinine [Mass ratio] 23.3 mg/mg High 10-20 [facility] Basic Metabolic Profile (BMP )on 02-19-2025 BUN/CRE 23.3 RATIO High 10-20 [facility] Comment on above: Performed By: #### L 100.0100, L500.2500 ####[facility] [address] [place], [address] ECRCL 18.57 ml/min Low 50-250 [facility] Comment on above: Performed By: #### L 100.0100, L500.2500 ####[facility] [address] [place], [address] GAP 14 Normal 5-15 [facility] Comment on above: Performed By: #### L 100.0100, L500.2500 ####[facility] [address] [place], [address] Potassium [Moles/Vol] 5.6 mmol/L High 3.3-5.1 [facility] Comment on above: Performed By: #### L 100.0100, L500.2500 ####[facility] [address] [place], [address] Basophil percentageOrdered B y: Aaliyah Collins on 02-19-2025 Basophils/100 WBC (Bld) 0.4 % Normal 0-1 [facility] Comment on above: Performed By: #### L 100.0100, L500.2500 ####[facility] [address] [place], [address] Bedside Glucoseon 02-19-2025 FINGERSTICK GLU 202 mg/dL High 74-106 [facility] Comment on above: Result Comment: ERIKA GEMENT OF PATIENT CARE PER NURSING PROTOCOL Performed By: #### L 501.080 ####[facility] [address] [place], [address] FINGERSTICK GLU 151 mg/dL High 74-106 [facility] Comment on above: Result Comment: ERIKA GEMENT OF PATIENT CARE PER NURSING PROTOCOL Performed By: #### L 501.080 ####[facility] [address] [place], [address] CBC W/Diff, Automatedon 05- Absolute Lymph 0.63 X10 3/uL Low 0.83-4.51 [facility] Comment on above: Performed By: #### L 100.0100, L500.2500 ####[facility] [address] [place], [address] Absolute Neut 9.8 X10 3/uL High 2.0-7.7 [facility] Comment on above: Performed By: #### L 100.0100, L500.2500 ####[facility] [address] [place], [address] IG% 2.100 High 0.0-0.9 [facility] Comment on above: Result Comment: IG% - Immature Granulocytes (promyelocytes, myelocytes andmetamyelocytes) > 1% indicates that a LEFT SHIFT is Present. Performed By: #### L 100.0100, L500.2500 ####[facility] [address] [place], [address] Lymphocytes/100 WBC (Bld) 5.2 % Low 19-41 [facility] Comment on above: Performed By: #### L 100.0100, L500.2500 ####[facility] [address] [place], [address] MCHC (RBC) [Mass/Vol] 31.6 g/dL Low 32-36 [facility] Comment on above: Performed By: #### L 100.0100, L500.2500 ####[facility] [address] [place], [address] Nucleated RBC (Bld) [#/Vol] 0.4 10*3/uL Normal 0-5 [facility] Comment on above: Performed By: #### L 100.0100, L500.2500 ####[facility] [address] [place], [address] Platelet mean volume (Bld) [Entitic vol] 10.3 fL Normal 6.2-12.0 [facility] Comment on above: Performed By: #### L 100.0100, L500.2500 ####[facility] [address] [place], [address] RDW SD 48.0 fl High 35.1-43.9 [facility] Comment on above: Performed By: #### L 100.0100, L500.2500 ####[facility] [address] [place], [address] CO2 (BldV) [Moles/Vol]Ordere d By: Enzo Chu on 02-19-2025 CO2 [Moles/Vol] 29 mmol/L 23-33 [facility] Carbon dioxide, total [Moles /volume] in Central venous bloodOrdered By: Aaliyah Collins on 02-19-2025 CO2 [Moles/Vol] 24.3 mmol/L Normal 21.0-32.0 [facility] Comment on above: Performed By: #### L 100.0100, L500.2500 ####[facility] [address] [place], [address] Chest 1 View (Portable)on Chest 1 View (Portable) Normal [facility] Chloride assayOrdered By: Elsa Collins on 02-19-2025 Chloride [Moles/Vol] 95 mmol/L Low 98-108 [facility] Comment on above: Performed By: #### L 100.0100, L500.2500 ####[facility] [address] [place], [address] Emergency Department Summary on 02-19-2025 Emergency Department Summary Normal [facility] Eosinophil percentageOrdered By: Aaliyah Collins on 02-19-2025 Eosinophils/100 WBC (Bld) 1.0 % Normal 0-5 [facility] Comment on above: Performed By: #### L 100.0100, L500.2500 ####[facility] [address] [place], [address] Erythrocyte distribution wid th ratioOrdered By: Aaliyah Collins on 02-19-2025 Erythrocyte distribution width (RBC) [Ratio] 15.0 % High 11.6-14.6 [facility] Comment on above: Performed By: #### L 100.0100, L500.2500 ####[facility] [address] [place], [address] Erythrocyte distribution wid th standard deviationOrdered By: Aaliyah Collins on 02-19-2025 Erythrocyte distribution width (RBC) [Ratio] 48.0 fl High 35.1-43.9 [facility] Glomerular filtration rate ( GFR) estimation/1.73 sq m using serum, plasma, or whole bOrdered By: Aaliyah Collins on 02-19-2025 GFR/1.73 sq M.predicted among non-blacks MDRD (S/P/Bld) [Vol rate/Area] 19 mL/min/{1.73_m2} Low >60 [facility] Comment on above: Result Comment: mL/m in/1.73m2 CKD-EPI Creatinine Equation (2020) Performed By: #### L 100.0100, L500.2500 ####[facility] [address] [place], [address] [facility] deOrdered By: Enzo Chu on 02-19-2025 Glucose [Mass/Vol] 151 mg/dL High 74-106 [facility] Gram stainOrdered By: John Gillis on 02-19-2025 Microscopic observation Gram stain Nom (Unsp spec) [facility] H AND P Exam - Hospitaliston 02-19-2025 H&P Exam - Hospitalist Normal [facility] Hemoglobin measurementOrdere d By: Aaliyah Collins on 02-19-2025 Hemoglobin (Bld) [Mass/Vol] 10.9 g/dL Low 13.0-16.5 [facility] Comment on above: Performed By: #### L 100.0100, L500.2500 ####[facility] [address] [place], [address] Immature granulocytes/100 WB C Auto (Bld)Ordered By: Aaliyah Collins on 02-19-2025 Immature granulocytes/100 WBC (Bld) 2.100 % High 0.0-0.9 [facility] L501.4021on 02-19-2025 Trop T High Sen 271 ng/L Invalid Interpretation Code <=22 [facility] Comment on above: Result Comment: Crit ical Result(s) Called at: 1817 by:??DENI FOWLER Results read back by same. Performed By: #### L 501.4021 ####[facility] [address] [place], [address] L503.7505on 02-19-2025 Natriuretic peptide B (Bld) [Mass/Vol] 5205 pg/mL High <=1800 [facility] Comment on above: Result Comment: Hear t Failure Unlikely: < 300 pg/mLHeart Failure Likely< 50 Years: > 450 pg/mL50-75 Years: > 900 pg/mL>75 Years: > 1800 pg/mL Performed By: #### L 503.7505 ####[facility] [address] [place], [address] M100.019on 02-19-2025 M100.019 Negative Normal [facility] Comment on above: Performed By: #### M 100.638, M100.019 ####[facility] [address] [place], [address] MCV (mean corpuscular volume ) determinationOrdered By: Aaliyah Collins on 02-19-2025 MCV (RBC) [Entitic vol] 92.2 fL Normal 80-94 [facility] Comment on above: Performed By: #### L 100.0100, L500.2500 ####[facility] [address] [place], [address] Mean corpuscular hemoglobin (MCH) determinationOrdered By: Aaliyah Collins on 02-19-2025 MCH (RBC) [Entitic mass] 29.1 pg Normal 27.0-32.0 [facility] Comment on above: Performed By: #### L 100.0100, L500.2500 ####[facility] [address] [place], [address] Microbial respiratory cultur eOrdered By: Hansel Gillis on 02-19-2025 Microorganism identified Cx Nom (Unsp spec) Citrobacter braakii Abnormal [facility] Microorganism identified Cx Nom (Unsp spec) Raoultella planticola Abnormal [facility] Microorganism identified Cx Nom (Unsp spec) Enterobacter cloacae complex Abnormal [facility] Monocyte percentageOrdered B y: Aaliyah Collins on 02-19-2025 Monocytes/100 WBC (Bld) 10.5 % High 0-10 [facility] Comment on above: Performed By: #### L 100.0100, L500.2500 ####[facility] [address] [place], [place], [address] Natriuretic peptide.B prohor gurvinder N-Terminal [Mass/volume] in Serum or PlasmaOrdered By: Aaliyah Collins on 02-19-2025 Natriuretic peptide.B prohormone N-Terminal [Mass/Vol] 5205 pg/mL High <1800 [facility] Neutrophil percentageOrdered By: Aaliyah Collins on 02-19-2025 Neutrophils/100 WBC (Bld) 80.8 % High 47-70 [facility] Comment on above: Performed By: #### L 100.0100, L500.2500 ####[facility] [address] [place], [address] No Panel InformationOrdered By: Enzo Chu on 02-19-2025 YURY [facility] Not entered [facility] Platelet countOrdered By: Elsa Collins on 02-19-2025 Platelets (Bld) [#/Vol] 523 10*3/uL High 150-450 [facility] Comment on above: Performed By: #### L 100.0100, L500.2500 ####[facility] [address] [place], [address] Potassium measurement (mass/ volume)Ordered By: Aaliyah Collins on 02-19-2025 Potassium (Unsp spec) [Mass/Vol] 5.6 mmol/L High 3.3-5.1 [facility] Respiratory pathogens detect ion panel by molecular detection methodOrdered By: Hansel Gillis on 02-19-2025 Respiratory pathogens DNA and RNA panel GARRETT+probe (Resp) Parainfluenza 3 Abnormal [facility] Ssrq-ipn-3Ewzvwrj By: John Gillis on 02-19-2025 SARS-CoV-2 (COVID-19) RNA GARRETT+probe Ql (Unsp spec) [facility] Serum creatinine measurement (mass/volume)Ordered By: Aaliyah Collins on 02-19-2025 Creatinine [Mass/Vol] 3.09 mg/dL High 0.70-1.20 [facility] Comment on above: Performed By: #### L 100.0100, L500.2500 ####[facility] [address] [place], [address] Serum glucose measurement (m ass/volume)Ordered By: Aaliyah Collins on 02-19-2025 Glucose [Mass/Vol] 129 mg/dL High 70-99 [facility] Comment on above: Performed By: #### L 100.0100, L500.2500 ####[facility] [address] [place], [address] Serum or plasma calcium harley urement (mass/volume)Ordered By: Aaliyah Collins on 02-19-2025 Calcium [Mass/Vol] 9.9 mg/dL Normal 7.6-11.0 [facility] Comment on above: Performed By: #### L 100.0100, L500.2500 ####[facility] [address] [place], [address] Serum or plasma urea nitroge n measurement (mass/volume)Ordered By: Aaliyah Collins on 02-19-2025 Urea nitrogen [Mass/Vol] 72 mg/dL High 4-19 [facility] Comment on above: Performed By: #### L 100.0100, L500.2500 ####[facility] [address] [place], [address] Sodium levelOrdered By: Aaliyah Collins on 02-19-2025 Sodium [Moles/Vol] 133 mmol/L Normal 133-145 [facility] Comment on above: Performed By: #### L 100.0100, L500.2500 ####[facility] [address] [place], [address] Troponin T.cardiac [Mass/vol ume] in Serum or Plasma by High sensitivity methodOrdered By: Aaliyah Collins on 02-19-2025 Troponin T.cardiac High sensitivity method [Mass/Vol] 271 ng/L High <22 [facility] Venous Blood Gason Blood Gas Type YURY Normal [facility] Comment on above: Performed By: #### L 9000.0810 ####[facility] [address] [place], [address] CO2 [Moles/Vol] 29 mmol/L Normal 23-33 [facility] Comment on above: Performed By: #### L 9000.0810 ####[facility] [address] [place], [address] HCO3 (Bld) [Moles/Vol] 28 mmol/L High 22-26 [facility] Comment on above: Performed By: #### L 9000.0810 ####[facility] [address] [place], [address] O2 Delivery Dev Not entered Normal [facility] Comment on above: Performed By: #### L 9000.0810 ####[facility] [address] [place], [address] SITE Not entered Normal [facility] Comment on above: Performed By: #### L 9000.0810 ####[facility] [address] [place], [address] VBG BE 3 mmol/L Normal -1.0-3.5 [facility] Comment on above: Performed By: #### L 9000.0810 ####[facility] [address] [place], [address] VBG pCO2 44.4 mmHg Normal 41-51 [facility] Comment on above: Performed By: #### L 9000.0810 ####[facility] [address] [place], [address] VBG pH 7.41 Normal 7.32-7.42 [facility] Comment on above: Performed By: #### L 9000.0810 ####[facility] [address] [place], [address] VBG PO2 35 mmHg Normal 25-40 [facility] Comment on above: Performed By: #### L 9000.0810 ####[facility] [address] [place], [place], [address] VBG SO2 67 Normal 50-70 [facility] Comment on above: Performed By: #### L 9000.0810 ####[facility] [address] [place], [place], [address] Venous blood base excess jaelyn surementOrdered By: Enzo Chu on 02-19-2025 Base excess Calc (BldV) [Moles/Vol] 3 mmol/L -1.0-3.5 [facility] Venous blood bicarbonate jaelyn surementOrdered By: Enzo Chu on 02-19-2025 HCO3 (Bld) [Moles/Vol] 28 mmol/L High 22-26 [facility] Venous blood pH measurementO rdered By: Enzo Chu on 02-19-2025 pH (BldV) 7.41 [pH] 7.32-7.42 [facility] Venous blood partial pressur e of carbon dioxide measurementOrdered By: Enzo Chu on 02-19-2025 CO2 (BldV) [Partial pressure] 44.4 mm[Hg] 41-51 [facility] Venous blood partial pressur e of oxygen measurementOrdered By: Enzo Chu on 02-19-2025 Oxygen (BldV) [Partial pressure] 35 mm[Hg] 25-40 [facility] White blood cell (WBC) count Ordered By: Aaliyah Collins on 02-19-2025 WBC (Bld) [#/Vol] 12.2 10*3/uL High 4.4-11.0 [facility] Comment on above: Performed By: #### L 100.0100, L500.2500 ####[facility] [address] [place], [address] Absolute lymphocyte countOrd ered By: Inocencio Perkins on 02-18-2025 Lymphocytes Auto (Unsp spec) [#/Vol] 0.82 10*3/uL Low 0.83-4.51 [facility] Anion gap in Serum or Plasma Ordered By: Inocencio Perkins on 02-18-2025 Anion gap [Moles/Vol] 13 mmol/L 5-15 [facility] Automated lymphocyte count a s percentage of total leukocytesOrdered By: Inocencio Perkins on 02-18-2025 Lymphocytes/100 WBC Auto (Unsp spec) 6.4 % Low 19-41 [facility] BUN/creatinine ratioOrdered By: Inocencio Perkins on 02-18-2025 Urea nitrogen/Creatinine [Mass ratio] 23.8 mg/mg High 10-20 [facility] Basic Metabolic Profile (BMP )on 02-18-2025 BUN/CRE 23.8 RATIO High - [facility] Comment on above: Performed By: #### L 100.0100, L500.2500 ####[facility] [address] [place], [address] Calcium [Mass/Vol] 9.9 mg/dL Normal 7.6-11.0 [facility] Comment on above: Performed By: #### L 100.0100, L500.2500 ####[facility] [address] [place], [address] Chloride [Moles/Vol] 95 mmol/L Low 98-108 [facility] Comment on above: Performed By: #### L 100.0100, L500.2500 ####[facility] [address] [place], [address] CO2 [Moles/Vol] 25.9 mmol/L Normal 21.0-32.0 [facility] Comment on above: Performed By: #### L 100.0100, L500.2500 ####[facility] [address] [place], [address] Creatinine [Mass/Vol] 2.35 mg/dL High 0.70-1.20 [facility] Comment on above: Performed By: #### L 100.0100, L500.2500 ####[facility] [address] [place], [address] ECRCL 24.11 ml/min Low 50-250 [facility] Comment on above: Performed By: #### L 100.0100, L500.2500 ####[facility] [address] [place], [address] GAP 13 Normal 5-15 [facility] Comment on above: Performed By: #### L 100.0100, L500.2500 ####[facility] [address] [place], [address] GFR/1.73 sq M.predicted among non-blacks MDRD (S/P/Bld) [Vol rate/Area] 26 mL/min/{1.73_m2} Low >60 [facility] Comment on above: Result Comment: mL/m in/1.73m2 CKD-EPI Creatinine Equation (2020) Performed By: #### L 100.0100, L500.2500 ####[facility] [address] [place], [address] Glucose [Mass/Vol] 156 mg/dL High 70-99 [facility] Comment on above: Performed By: #### L 100.0100, L500.2500 ####[facility] [address] [place], [address] Potassium [Moles/Vol] 4.7 mmol/L Normal 3.3-5.1 [facility] Comment on above: Performed By: #### L 100.0100, L500.2500 ####[facility] [address] [place], [address] Sodium [Moles/Vol] 134 mmol/L Normal 133-145 [facility] Comment on above: Performed By: #### L 100.0100, L500.2500 ####[facility] [address] [place], [address] Urea nitrogen [Mass/Vol] 56 mg/dL High 4-19 [facility] Comment on above: Performed By: #### L 100.0100, L500.2500 ####[facility] [address] [place], [address] Basophil percentageOrdered B y: Inocencio Perkins on 02-18-2025 Basophils/100 WBC (Bld) 0.2 % 0-1 [facility] Bedside Glucoseon 02-18-2025 FINGERSTICK GLU 191 mg/dL High 74-106 [facility] Comment on above: Result Comment: ERIKA GEMENT OF PATIENT CARE PER NURSING PROTOCOL Performed By: #### L 501.080 ####[facility] [address] [place], [address] FINGERSTICK GLU 154 mg/dL High 74-106 [facility] Comment on above: Result Comment: ERIKA GEMENT OF PATIENT CARE PER NURSING PROTOCOL Performed By: #### L 501.080 ####[facility] [address] [place], [address] FINGERSTICK GLU 155 mg/dL High 74-106 [facility] Comment on above: Result Comment: ERIKA GEMENT OF PATIENT CARE PER NURSING PROTOCOL Performed By: #### L 501.080 ####[facility] [address] [place], [address] FINGERSTICK GLU 164 mg/dL High 74-106 [facility] Comment on above: Result Comment: ERIKA GEMENT OF PATIENT CARE PER NURSING PROTOCOL Performed By: #### L 501.080 ####[facility] [address] [place], [address] CBC W/Diff, Automatedon 02-04 Absolute Lymph 0.82 X10 3/uL Low 0.83-4.51 [facility] Comment on above: Performed By: #### L 100.0100, L500.2500 ####[facility] [address] [place], [address] Absolute Neut 10.7 X10 3/uL High 2.0-7.7 [facility] Comment on above: Performed By: #### L 100.0100, L500.2500 ####[facility] [address] [place], [address] Basophils/100 WBC (Bld) 0.2 % Normal 0-1 [facility] Comment on above: Performed By: #### L 100.0100, L500.2500 ####[facility] [address] [place], [address] Eosinophils/100 WBC (Bld) 0.5 % Normal 0-5 [facility] Comment on above: Performed By: #### L 100.0100, L500.2500 ####[facility] [address] [place], [address] Erythrocyte distribution width (RBC) [Ratio] 14.5 % Normal 11.6-14.6 [facility] Comment on above: Performed By: #### L 100.0100, L500.2500 ####[facility] [address] [place], [address] Hematocrit (Bld) [Volume fraction] 30.7 % Low 40-54 [facility] Comment on above: Performed By: #### L 100.0100, L500.2500 ####[facility] [address] [place], [address] Hemoglobin (Bld) [Mass/Vol] 10.6 g/dL Low 13.0-16.5 [facility] Comment on above: Performed By: #### L 100.0100, L500.2500 ####[facility] [address] [place], [address] IG% 1.100 High 0.0-0.9 [facility] Comment on above: Result Comment: IG% - Immature Granulocytes (promyelocytes, myelocytes andmetamyelocytes) > 1% indicates that a LEFT SHIFT is Present. Performed By: #### L 100.0100, L500.2500 ####[facility] [address] [place], [address] Lymphocytes/100 WBC (Bld) 6.4 % Low 19-41 [facility] Comment on above: Performed By: #### L 100.0100, L500.2500 ####[facility] [address] [place], [address] MCH (RBC) [Entitic mass] 32.7 pg High 27.0-32.0 [facility] Comment on above: Performed By: #### L 100.0100, L500.2500 ####[facility] [address] [place], [address] MCHC (RBC) [Mass/Vol] 34.5 g/dL Normal 32-36 [facility] Comment on above: Performed By: #### L 100.0100, L500.2500 ####[facility] [address] [place], [address] MCV (RBC) [Entitic vol] 94.8 fL High 80-94 [facility] Comment on above: Performed By: #### L 100.0100, L500.2500 ####[facility] [address] [place], [address] Monocytes/100 WBC (Bld) 8.4 % Normal 0-10 [facility] Comment on above: Performed By: #### L 100.0100, L500.2500 ####[facility] [address] [place], [address] Neutrophils/100 WBC (Bld) 83.4 % High 47-70 [facility] Comment on above: Performed By: #### L 100.0100, L500.2500 ####[facility] [address] [place], [address] Nucleated RBC (Bld) [#/Vol] 0.4 10*3/uL Normal 0-5 [facility] Comment on above: Performed By: #### L 100.0100, L500.2500 ####[facility] [address] [place], [address] Platelet mean volume (Bld) [Entitic vol] 10.0 fL Normal 6.2-12.0 [facility] Comment on above: Performed By: #### L 100.0100, L500.2500 ####[facility] [address] [place], [address] Platelets (Bld) [#/Vol] 567 10*3/uL High 150-450 [facility] Comment on above: Performed By: #### L 100.0100, L500.2500 ####[facility] [address] [place], [address] RBC (Bld) [#/Vol] 3.24 10*6/uL Low 4.6-6.2 [facility] Comment on above: Performed By: #### L 100.0100, L500.2500 ####[facility] [address] [place], [address] RDW SD 46.4 fl High 35.1-43.9 [facility] Comment on above: Performed By: #### L 100.0100, L500.2500 ####[facility] [address] [place], [address] WBC (Bld) [#/Vol] 12.9 10*3/uL High 4.4-11.0 [facility] Comment on above: Performed By: #### L 100.0100, L500.2500 ####[facility] [address] [place], [address] Carbon dioxide, total [Moles /volume] in Central venous bloodOrdered By: Inocencio Perkins on 02-18-2025 CO2 [Moles/Vol] 25.9 mmol/L 21.0-32.0 [facility] Chloride assayOrdered By: Sukhjinder Perkins on 02-18-2025 Chloride [Moles/Vol] 95 mmol/L Low 98-108 [facility] Discharge Instructionon 02-04 Discharge Instruction Normal [facility] Eosinophil percentageOrdered By: Inocencio Perkins on 02-18-2025 Eosinophils/100 WBC (Bld) 0.5 % 0-5 [facility] Erythrocyte distribution wid th ratioOrdered By: Inocencio Perkins on 02-18-2025 Erythrocyte distribution width (RBC) [Ratio] 14.5 % 11.6-14.6 [facility] Erythrocyte distribution wid th standard deviationOrdered By: Inocencio Perkins on 02-18-2025 Erythrocyte distribution width (RBC) [Ratio] 46.4 fl High 35.1-43.9 [facility] Glomerular filtration rate ( GFR) estimation/1.73 sq m using serum, plasma, or whole bOrdered By: Inocencio Perkins on 02-18-2025 GFR/1.73 sq M.predicted among non-blacks MDRD (S/P/Bld) [Vol rate/Area] 26 mL/min/{1.73_m2} Low >60 [facility] Glucose measurement at [facility] deOrdered By: Inocencio Perkins on 02-18-2025 Glucose [Mass/Vol] 191 mg/dL High 74-106 [facility] Hematocrit Auto (Bld) [Volum e fraction]Ordered By: Inocencio Perkins on 02-18-2025 Hematocrit (Bld) [Volume fraction] 30.7 % Low 40-54 [facility] Hemoglobin measurementOrdere d By: Inocencio Perkins on 02-18-2025 Hemoglobin (Bld) [Mass/Vol] 10.6 g/dL Low 13.0-16.5 [facility] Immature granulocytes/100 WB C Auto (Bld)Ordered By: Inocencio Perkins on 02-18-2025 Immature granulocytes/100 WBC (Bld) 1.100 % High 0.0-0.9 [facility] MCV (mean corpuscular volume ) determinationOrdered By: Inocencio Perkins on 02-18-2025 MCV (RBC) [Entitic vol] 94.8 fL High 80-94 [facility] Mean corpuscular hemoglobin (MCH) determinationOrdered By: Inocencio Perkins on 02-18-2025 MCH (RBC) [Entitic mass] 32.7 pg High 27.0-32.0 [facility] Monocyte percentageOrdered B y: Inocencio Perkins on 02-18-2025 Monocytes/100 WBC (Bld) 8.4 % 0-10 [facility] Neutrophil percentageOrdered By: Inocencio Perkins on 02-18-2025 Neutrophils/100 WBC (Bld) 83.4 % High 47-70 [facility] Platelet countOrdered By: Sukhjinder Perkins on 02-18-2025 Platelets (Bld) [#/Vol] 567 10*3/uL High 150-450 [facility] Potassium measurement (mass/ volume)Ordered By: Inocencio Perkins on 02-18-2025 Potassium (Unsp spec) [Mass/Vol] 4.7 mmol/L 3.3-5.1 [facility] RBC Auto (Bld) [#/Vol]Ordere d By: Inocencio Perkins on 02-18-2025 RBC (Bld) [#/Vol] 3.24 10*6/uL Low 4.6-6.2 [facility] Serum creatinine measurement (mass/volume)Ordered By: Inocencio Perkins on 02-18-2025 Creatinine [Mass/Vol] 2.35 mg/dL High 0.70-1.20 [facility] Serum glucose measurement (m ass/volume)Ordered By: Inocencio Perkins on 02-18-2025 Glucose [Mass/Vol] 156 mg/dL High 70-99 [facility] Serum or plasma calcium harley urement (mass/volume)Ordered By: Inocencio Perkins on 02-18-2025 Calcium [Mass/Vol] 9.9 mg/dL 7.6-11.0 [facility] Serum or plasma urea nitroge n measurement (mass/volume)Ordered By: Inocencio Perkins on 02-18-2025 Urea nitrogen [Mass/Vol] 56 mg/dL High 4-19 [facility] Sodium levelOrdered By: Inocencio Perkins on 02-18-2025 Sodium [Moles/Vol] 134 mmol/L 133-145 [facility] White blood cell (WBC) count Ordered By: Inocencio Enedeliagenevieve on 02-18-2025 WBC (Bld) [#/Vol] 12.9 10*3/uL High 4.4-11.0 [facility] Basic Metabolic Profile (BMP )on 02-17-2025 BUN/CRE 26.3 RATIO High 10-20 [facility] Comment on above: Performed By: #### L 500.2500, L100.0100 ####[facility] [address] [place], [address] Calcium [Mass/Vol] 9.9 mg/dL Normal 7.6-11.0 [facility] Comment on above: Performed By: #### L 500.2500, L100.0100 ####[facility] [address] [place], [address] Chloride [Moles/Vol] 96 mmol/L Low 98-108 [facility] Comment on above: Performed By: #### L 500.2500, L100.0100 ####[facility] [address] [place], [address] CO2 [Moles/Vol] 23.5 mmol/L Normal 21.0-32.0 [facility] Comment on above: Performed By: #### L 500.2500, L100.0100 ####[facility] [address] [place], [address] Creatinine [Mass/Vol] 2.08 mg/dL High 0.70-1.20 [facility] Comment on above: Performed By: #### L 500.2500, L100.0100 ####[facility] [address] [place], [address] ECRCL 29.12 ml/min Low 50-250 [facility] Comment on above: Performed By: #### L 500.2500, L100.0100 ####[facility] [address] [place], [address] GAP 12 Normal 5-15 [facility] Comment on above: Performed By: #### L 500.2500, L100.0100 ####[facility] [address] [place], [address] GFR/1.73 sq M.predicted among non-blacks MDRD (S/P/Bld) [Vol rate/Area] 30 mL/min/{1.73_m2} Low >60 [facility] Comment on above: Result Comment: mL/m in/1.73m2 CKD-EPI Creatinine Equation (2020) Performed By: #### L 500.2500, L100.0100 ####[facility] [address] [place], [address] Glucose [Mass/Vol] 172 mg/dL High 70-99 [facility] Comment on above: Performed By: #### L 500.2500, L100.0100 ####[facility] [address] [place], [address] Potassium [Moles/Vol] 4.4 mmol/L Normal 3.3-5.1 [facility] Comment on above: Performed By: #### L 500.2500, L100.0100 ####[facility] [address] [place], [address] Sodium [Moles/Vol] 131 mmol/L Low 133-145 [facility] Comment on above: Performed By: #### L 500.2500, L100.0100 ####[facility] [address] [place], [address] Urea nitrogen [Mass/Vol] 55 mg/dL High 4-19 [facility] Comment on above: Performed By: #### L 500.2500, L100.0100 ####[facility] [address] [place], [address] Bedside Glucoseon 05-14-2025 FINGERSTICK GLU 144 mg/dL High 74-106 [facility] Comment on above: Result Comment: ERIKA GEMENT OF PATIENT CARE PER NURSING PROTOCOL Performed By: #### L 501.080 ####[facility] [address] [place], [address] FINGERSTICK GLU 165 mg/dL High 74-106 [facility] Comment on above: Result Comment: ERIKA GEMENT OF PATIENT CARE PER NURSING PROTOCOL Performed By: #### L 501.080 ####[facility] [address] [place], [address] FINGERSTICK GLU 141 mg/dL High 74-106 [facility] Comment on above: Result Comment: ERIKA GEMENT OF PATIENT CARE PER NURSING PROTOCOL Performed By: #### L 501.080 ####[facility] [address] [place], [address] CBC W/Diff, Automatedon 05- Absolute Lymph 0.74 X10 3/uL Low 0.83-4.51 [facility] Comment on above: Performed By: #### L 500.2500, L100.0100 ####[facility] [address] [place], [address] Absolute Neut 9.8 X10 3/uL High 2.0-7.7 [facility] Comment on above: Performed By: #### L 500.2500, L100.0100 ####[facility] [address] [place], [address] Basophils/100 WBC (Bld) 0.3 % Normal 0-1 [facility] Comment on above: Performed By: #### L 500.2500, L100.0100 ####[facility] [address] [place], [address] Eosinophils/100 WBC (Bld) 0.2 % Normal 0-5 [facility] Comment on above: Performed By: #### L 500.2500, L100.0100 ####[facility] [address] [place], [address] Erythrocyte distribution width (RBC) [Ratio] 15.3 % High 11.6-14.6 [facility] Comment on above: Performed By: #### L 500.2500, L100.0100 ####[facility] [address] [place], [address] Hematocrit (Bld) [Volume fraction] 26.9 % Low 40-54 [facility] Comment on above: Performed By: #### L 500.2500, L100.0100 ####[facility] [address] [place], [address] Hemoglobin (Bld) [Mass/Vol] 9.9 g/dL Low 13.0-16.5 [facility] Comment on above: Performed By: #### L 500.2500, L100.0100 ####[facility] [address] [place], [address] IG% 1.100 High 0.0-0.9 [facility] Comment on above: Result Comment: IG% - Immature Granulocytes (promyelocytes, myelocytes andmetamyelocytes) > 1% indicates that a LEFT SHIFT is Present. Performed By: #### L 500.2500, L100.0100 ####[facility] [address] [place], [address] Lymphocytes/100 WBC (Bld) 6.3 % Low 19-41 [facility] Comment on above: Performed By: #### L 500.2500, L100.0100 ####[facility] [address] [place], [address] MCH (RBC) [Entitic mass] 35.5 pg High 27.0-32.0 [facility] Comment on above: Performed By: #### L 500.2500, L100.0100 ####[facility] [address] [place], [address] MCHC (RBC) [Mass/Vol] 36.8 g/dL High 32-36 [facility] Comment on above: Performed By: #### L 500.2500, L100.0100 ####[facility] [address] [place], [address] MCV (RBC) [Entitic vol] 96.4 fL High 80-94 [facility] Comment on above: Performed By: #### L 500.2500, L100.0100 ####[facility] [address] [place], [address] Monocytes/100 WBC (Bld) 7.8 % Normal 0-10 [facility] Comment on above: Performed By: #### L 500.2500, L100.0100 ####[facility] [address] [place], [address] Neutrophils/100 WBC (Bld) 84.3 % High 47-70 [facility] Comment on above: Performed By: #### L 500.2500, L100.0100 ####[facility] [address] [place], [address] Nucleated RBC (Bld) [#/Vol] 0.2 10*3/uL Normal 0-5 [facility] Comment on above: Performed By: #### L 500.2500, L100.0100 ####[facility] [address] [place], [address] Platelet mean volume (Bld) [Entitic vol] 10.2 fL Normal 6.2-12.0 [facility] Comment on above: Performed By: #### L 500.2500, L100.0100 ####[facility] [address] [place], [address] Platelets (Bld) [#/Vol] 498 10*3/uL High 150-450 [facility] Comment on above: Performed By: #### L 500.2500, L100.0100 ####[facility] [address] [place], [address] RBC (Bld) [#/Vol] 2.79 10*6/uL Low 4.6-6.2 [facility] Comment on above: Performed By: #### L 500.2500, L100.0100 ####[facility] [address] [place], [address] RDW SD 46.4 fl High 35.1-43.9 [facility] Comment on above: Performed By: #### L 500.2500, L100.0100 ####[facility] [address] [place], [address] WBC (Bld) [#/Vol] 11.7 10*3/uL High 4.4-11.0 [facility] Comment on above: Performed By: #### L 500.2500, L100.0100 ####[facility] [address] [place], [address] Bedside Glucoseon 02-16-2025 FINGERSTICK GLU 168 mg/dL High 74-106 [facility] Comment on above: Result Comment: ERIKA GEMENT OF PATIENT CARE PER NURSING PROTOCOL Performed By: #### L 501.080 ####[facility] [address] [place], [address] FINGERSTICK GLU 141 mg/dL High 74-106 [facility] Comment on above: Result Comment: ERIKA GEMENT OF PATIENT CARE PER NURSING PROTOCOL Performed By: #### L 501.080 ####[facility] [address] [place], [address] FINGERSTICK GLU 151 mg/dL High 74-106 [facility] Comment on above: Result Comment: ERIKA GEMENT OF PATIENT CARE PER NURSING PROTOCOL Performed By: #### L 501.080 ####[facility] [address] [place], [address] FINGERSTICK GLU 159 mg/dL High 74-106 [facility] Comment on above: Result Comment: ERIKA ALONZO OF PATIENT CARE PER NURSING PROTOCOL Performed By: #### L 501.080 ####[facility] [address] [place], [address] Bilirubin, totalOrdered By: Raymond Keenan on 02-16-2025 Bilirubin [Mass/Vol] 0.68 mg/dL 0.00-1.30 [facility] CBC W/Diff, Automatedon 02-04 Absolute Lymph 0.88 X10 3/uL Normal 0.83-4.51 [facility] Comment on above: Performed By: #### L 100.0100, L500.4050 ####[facility] [address] [place], [address] Absolute Neut 9.3 X10 3/uL High 2.0-7.7 [facility] Comment on above: Performed By: #### L 100.0100, L500.4050 ####[facility] [address] [place], [address] Basophils/100 WBC (Bld) 0.1 % Normal 0-1 [facility] Comment on above: Performed By: #### L 100.0100, L500.4050 ####[facility] [address] [place], [address] Eosinophils/100 WBC (Bld) 0.4 % Normal 0-5 [facility] Comment on above: Performed By: #### L 100.0100, L500.4050 ####[facility] [address] [place], [address] Erythrocyte distribution width (RBC) [Ratio] 13.8 % Normal 11.6-14.6 [facility] Comment on above: Performed By: #### L 100.0100, L500.4050 ####[facility] [address] [place], [address] Hematocrit (Bld) [Volume fraction] 28.9 % Low 40-54 [facility] Comment on above: Performed By: #### L 100.0100, L500.4050 ####[facility] [address] [place], [address] Hemoglobin (Bld) [Mass/Vol] 9.6 g/dL Low 13.0-16.5 [facility] Comment on above: Performed By: #### L 100.0100, L500.4050 ####[facility] [address] [place], [address] IG% 1.100 High 0.0-0.9 [facility] Comment on above: Result Comment: IG% - Immature Granulocytes (promyelocytes, myelocytes andmetamyelocytes) > 1% indicates that a LEFT SHIFT is Present. Performed By: #### L 100.0100, L500.4050 ####[facility] [address] [place], [address] Lymphocytes/100 WBC (Bld) 7.7 % Low 19-41 [facility] Comment on above: Performed By: #### L 100.0100, L500.4050 ####[facility] [address] [place], [address] MCH (RBC) [Entitic mass] 30.6 pg Normal 27.0-32.0 [facility] Comment on above: Performed By: #### L 100.0100, L500.4050 ####[facility] [address] [place], [address] MCHC (RBC) [Mass/Vol] 33.2 g/dL Normal 32-36 [facility] Comment on above: Performed By: #### L 100.0100, L500.4050 ####[facility] [address] [place], [address] MCV (RBC) [Entitic vol] 92.0 fL Normal 80-94 [facility] Comment on above: Performed By: #### L 100.0100, L500.4050 ####[facility] [address] [place], [address] Monocytes/100 WBC (Bld) 9.3 % Normal 0-10 [facility] Comment on above: Performed By: #### L 100.0100, L500.4050 ####[facility] [address] [place], [address] Neutrophils/100 WBC (Bld) 81.4 % High 47-70 [facility] Comment on above: Performed By: #### L 100.0100, L500.4050 ####[facility] [address] [place], [address] Nucleated RBC (Bld) [#/Vol] 0 10*3/uL Normal 0-5 [facility] Comment on above: Performed By: #### L 100.0100, L500.4050 ####[facility] [address] [place], [address] Platelet mean volume (Bld) [Entitic vol] 10.0 fL Normal 6.2-12.0 [facility] Comment on above: Performed By: #### L 100.0100, L500.4050 ####[facility] [address] [place], [address] Platelets (Bld) [#/Vol] 424 10*3/uL Normal 150-450 [facility] Comment on above: Performed By: #### L 100.0100, L500.4050 ####[facility] [address] [place], [address] RBC (Bld) [#/Vol] 3.14 10*6/uL Low 4.6-6.2 [facility] Comment on above: Performed By: #### L 100.0100, L500.4050 ####[facility] [address] [place], [address] RDW SD 45.1 fl High 35.1-43.9 [facility] Comment on above: Performed By: #### L 100.0100, L500.4050 ####[facility] [address] [place], [address] WBC (Bld) [#/Vol] 11.4 10*3/uL High 4.4-11.0 [facility] Comment on above: Performed By: #### L 100.0100, L500.4050 ####[facility] [address] [place], [address] Comprehensive Metabolic Prof kson 02-16-2025 Albumin [Mass/Vol] 3.5 g/dL Normal 3.4-4.8 [facility] Comment on above: Performed By: #### L 100.0100, L500.4050 ####[facility] [address] [place], [address] Albumin/Globulin [Mass ratio] 1.0 {ratio} Normal 0.9-2.4 [facility] Comment on above: Performed By: #### L 100.0100, L500.4050 ####[facility] [address] [place], [address] ALK PHOS 85 U/L Normal 40-129 [facility] Comment on above: Performed By: #### L 100.0100, L500.4050 ####[facility] [address] [place], [address] ALT [Catalytic activity/Vol] 27 U/L Normal <=46 [facility] Comment on above: Performed By: #### L 100.0100, L500.4050 ####[facility] [address] [place], [address] AST [Catalytic activity/Vol] 32 U/L Normal <=37 [facility] Comment on above: Performed By: #### L 100.0100, L500.4050 ####[facility] [address] [place], [address] Bilirubin [Mass/Vol] 0.68 mg/dL Normal 0.00-1.30 [facility] Comment on above: Performed By: #### L 100.0100, L500.4050 ####[facility] [address] [place], [address] BUN/CRE 25.1 RATIO High 10-20 [facility] Comment on above: Performed By: #### L 100.0100, L500.4050 ####[facility] [address] [place], [address] Calcium [Mass/Vol] 9.9 mg/dL Normal 7.6-11.0 [facility] Comment on above: Performed By: #### L 100.0100, L500.4050 ####[facility] [address] [place], [address] Chloride [Moles/Vol] 99 mmol/L Normal 98-108 [facility] Comment on above: Performed By: #### L 100.0100, L500.4050 ####[facility] [address] [place], [address] CO2 [Moles/Vol] 21.1 mmol/L Normal 21.0-32.0 [facility] Comment on above: Performed By: #### L 100.0100, L500.4050 ####[facility] [address] [place], [address] Creatinine [Mass/Vol] 2.06 mg/dL High 0.70-1.20 [facility] Comment on above: Performed By: #### L 100.0100, L500.4050 ####[facility] [address] [place], [address] ECRCL 29.49 ml/min Low 50-250 [facility] Comment on above: Performed By: #### L 100.0100, L500.4050 ####[facility] [address] [place], [address] GAP 14 Normal 5-15 [facility] Comment on above: Performed By: #### L 100.0100, L500.4050 ####[facility] [address] [place], [address] GFR/1.73 sq M.predicted among non-blacks MDRD (S/P/Bld) [Vol rate/Area] 31 mL/min/{1.73_m2} Low >60 [facility] Comment on above: Result Comment: mL/m in/1.73m2 CKD-EPI Creatinine Equation (2020) Performed By: #### L 100.0100, L500.4050 ####[facility] [address] [place], [address] Globulin (S) [Mass/Vol] 3.5 g/dL Normal 2.2-4.2 [facility] Comment on above: Performed By: #### L 100.0100, L500.4050 ####[facility] [address] [place], [address] Glucose [Mass/Vol] 167 mg/dL High 70-99 [facility] Comment on above: Performed By: #### L 100.0100, L500.4050 ####[facility] [address] [place], [address] Potassium [Moles/Vol] 4.8 mmol/L Normal 3.3-5.1 [facility] Comment on above: Performed By: #### L 100.0100, L500.4050 ####[facility] [address] [place], [address] Sodium [Moles/Vol] 134 mmol/L Normal 133-145 [facility] Comment on above: Performed By: #### L 100.0100, L500.4050 ####[facility] [address] [place], [address] T PROT 7.0 g/dL Normal 5.9-8.4 [facility] Comment on above: Performed By: #### L 100.0100, L500.4050 ####[facility] [address] [place], [address] Urea nitrogen [Mass/Vol] 52 mg/dL High 4-19 [facility] Comment on above: Performed By: #### L 100.0100, L500.4050 ####[facility] [address] [place], [address] No Panel InformationOrdered By: Raymond Keenan on 02-16-2025 32 U/L <38 [facility] Serum globulin measurementOr dered By: Raymond Keenan on 02-16-2025 Globulin (S) [Mass/Vol] 3.5 g/dL 2.2-4.2 [facility] Serum or plasma alanine whaley otransferase (ALT) measurementOrdered By: Raymond Keenan on 02-16-2025 ALT [Catalytic activity/Vol] 27 U/L <47 [facility] Serum or plasma albumin harley urement (mass/volume)Ordered By: Raymond Keenan on 02-16-2025 Albumin [Mass/Vol] 3.5 g/dL 3.4-4.8 [facility] Serum or plasma albumin/glob ulin mass ratioOrdered By: Raymond Keenan on 02-16-2025 Albumin/Globulin [Mass ratio] 1.0 {ratio} 0.9-2.4 [facility] Serum or plasma alkaline donell sphatase measurementOrdered By: Raymond Keenan on 02-16-2025 ALP [Catalytic activity/Vol] 85 U/L 40-129 [facility] Total proteinOrdered By: Singh Keenan on 02-16-2025 Protein [Mass/Vol] 7.0 g/dL 5.9-8.4 [facility] 12 Lead EKGon 02-15-2025 12 Lead EKG Normal [facility] Absolute lymphocyte countOrd ered By: Dinesh Comer on 02-15-2025 Lymphocytes Auto (Unsp spec) [#/Vol] 0.72 10*3/uL Low 0.83-4.51 [facility] Anion gap in Serum or Plasma Ordered By: Dinesh Comer on 02-15-2025 Anion gap [Moles/Vol] 15 mmol/L 5-15 [facility] Automated lymphocyte count a s percentage of total leukocytesOrdered By: Dinesh Comer on 02-15-2025 Lymphocytes/100 WBC Auto (Unsp spec) 6.4 % Low 19-41 [facility] BUN/creatinine ratioOrdered By: Dinesh Comer on 02-15-2025 Urea nitrogen/Creatinine [Mass ratio] 22.7 mg/mg High 10-20 [facility] Basic Metabolic Profile (BMP )on 02-15-2025 BUN/CRE 22.7 RATIO High 10-20 [facility] Comment on above: Performed By: #### L 500.2500, L501.4021, L503.7505, L100.0100 ####[facility] [address] [place], [address] Calcium [Mass/Vol] 9.5 mg/dL Normal 7.6-11.0 [facility] Comment on above: Performed By: #### L 500.2500, L501.4021, L503.7505, L100.0100 ####[facility] [address] [place], [address] Chloride [Moles/Vol] 97 mmol/L Low 98-108 [facility] Comment on above: Performed By: #### L 500.2500, L501.4021, L503.7505, L100.0100 ####[facility] [address] [place], [address] CO2 [Moles/Vol] 21.0 mmol/L Normal 21.0-32.0 [facility] Comment on above: Performed By: #### L 500.2500, L501.4021, L503.7505, L100.0100 ####[facility] [address] [place], [address] Creatinine [Mass/Vol] 2.12 mg/dL High 0.70-1.20 [facility] Comment on above: Performed By: #### L 500.2500, L501.4021, L503.7505, L100.0100 ####[facility] [address] [place], [address] ECRCL 27.81 ml/min Low 50-250 [facility] Comment on above: Performed By: #### L 500.2500, L501.4021, L503.7505, L100.0100 ####[facility] [address] [place], [address] GAP 15 Normal 5-15 [facility] Comment on above: Performed By: #### L 500.2500, L501.4021, L503.7505, L100.0100 ####[facility] [address] [place], [address] GFR/1.73 sq M.predicted among non-blacks MDRD (S/P/Bld) [Vol rate/Area] 30 mL/min/{1.73_m2} Low >60 [facility] Comment on above: Result Comment: mL/m in/1.73m2 CKD-EPI Creatinine Equation (2020) Performed By: #### L 500.2500, L501.4021, L503.7505, L100.0100 ####[facility] [facility] [address] [place], [address] Glucose [Mass/Vol] 190 mg/dL High 70-99 [facility] Comment on above: Performed By: #### L 500.2500, L501.4021, L503.7505, L100.0100 ####[facility] [address] [place], [address] Potassium [Moles/Vol] 4.1 mmol/L Normal 3.3-5.1 [facility] Comment on above: Performed By: #### L 500.2500, L501.4021, L503.7505, L100.0100 ####[facility] [address] [place], [address] Sodium [Moles/Vol] 133 mmol/L Normal 133-145 [facility] Comment on above: Performed By: #### L 500.2500, L501.4021, L503.7505, L100.0100 ####[facility] [address] [place], [address] Urea nitrogen [Mass/Vol] 48 mg/dL High 4-19 [facility] Comment on above: Performed By: #### L 500.2500, L501.4021, L503.7505, L100.0100 ####[facility] [address] [place], [address] Basophil percentageOrdered B y: Dinesh Comer on 02-15-2025 Basophils/100 WBC (Bld) 0.2 % 0-1 [facility] Bedside Glucoseon 02-15-2025 FINGERSTICK GLU 169 mg/dL High 74-106 [facility] Comment on above: Result Comment: ERIKA GEMENT OF PATIENT CARE PER NURSING PROTOCOL Performed By: #### L 501.080 ####[facility] [address] [place], [address] FINGERSTICK GLU 132 mg/dL High 74-106 [facility] Comment on above: Result Comment: ERIKA GEMENT OF PATIENT CARE PER NURSING PROTOCOL Performed By: #### L 501.080 ####[facility] [address] [place], [address] FINGERSTICK GLU 216 mg/dL High 74-106 [facility] Comment on above: Result Comment: ERIKA GEMENT OF PATIENT CARE PER NURSING PROTOCOL Performed By: #### L 501.080 ####[facility] [address] [place], [address] FINGERSTICK GLU 174 mg/dL High 74-106 [facility] Comment on above: Result Comment: ERIKA GEMENT OF PATIENT CARE PER NURSING PROTOCOL Performed By: #### L 501.080 ####[facility] [address] [place], [address] Brain W/WO Contraston 2024 Brain W/WO Contrast Normal [facility] Brain/Head without Contrasto n 02-15-2025 Brain/Head without Contrast Normal [facility] CBC W/Diff, Automatedon 02-04 Absolute Lymph 0.72 X10 3/uL Low 0.83-4.51 [facility] Comment on above: Performed By: #### L 500.2500, L501.4021, L503.7505, L100.0100 ####[facility] [address] [place], [address] Absolute Neut 9.4 X10 3/uL High 2.0-7.7 [facility] Comment on above: Performed By: #### L 500.2500, L501.4021, L503.7505, L100.0100 ####[facility] [address] [place], [address] Basophils/100 WBC (Bld) 0.2 % Normal 0-1 [facility] Comment on above: Performed By: #### L 500.2500, L501.4021, L503.7505, L100.0100 ####[facility] [address] [place], [address] Eosinophils/100 WBC (Bld) 0.1 % Normal 0-5 [facility] Comment on above: Performed By: #### L 500.2500, L501.4021, L503.7505, L100.0100 ####[facility] [address] [place], [address] Erythrocyte distribution width (RBC) [Ratio] 13.9 % Normal 11.6-14.6 [facility] Comment on above: Performed By: #### L 500.2500, L501.4021, L503.7505, L100.0100 ####[facility] [address] [place], [address] Hematocrit (Bld) [Volume fraction] 27.7 % Low 40-54 [facility] Comment on above: Performed By: #### L 500.2500, L501.4021, L503.7505, L100.0100 ####[facility] [address] [place], [address] Hemoglobin (Bld) [Mass/Vol] 9.5 g/dL Low 13.0-16.5 [facility] Comment on above: Performed By: #### L 500.2500, L501.4021, L503.7505, L100.0100 ####[facility] [address] [place], [address] IG% 0.800 Normal 0.0-0.9 [facility] Comment on above: Result Comment: IG% - Immature Granulocytes (promyelocytes, myelocytes andmetamyelocytes) > 1% indicates that a LEFT SHIFT is Present. Performed By: #### L 500.2500, L501.4021, L503.7505, L100.0100 ####[facility] [address] [place], [address] Lymphocytes/100 WBC (Bld) 6.4 % Low 19-41 [facility] Comment on above: Performed By: #### L 500.2500, L501.4021, L503.7505, L100.0100 ####[facility] [address] [place], [address] MCH (RBC) [Entitic mass] 32.9 pg High 27.0-32.0 [facility] Comment on above: Performed By: #### L 500.2500, L501.4021, L503.7505, L100.0100 ####[facility] [address] [place], [address] MCHC (RBC) [Mass/Vol] 34.3 g/dL Normal 32-36 [facility] Comment on above: Performed By: #### L 500.2500, L501.4021, L503.7505, L100.0100 ####[facility] [address] [place], [address] MCV (RBC) [Entitic vol] 95.8 fL High 80-94 [facility] Comment on above: Performed By: #### L 500.2500, L501.4021, L503.7505, L100.0100 ####[facility] [address] [place], [address] Monocytes/100 WBC (Bld) 8.8 % Normal 0-10 [facility] Comment on above: Performed By: #### L 500.2500, L501.4021, L503.7505, L100.0100 ####[facility] [address] [place], [address] Neutrophils/100 WBC (Bld) 83.7 % High 47-70 [facility] Comment on above: Performed By: #### L 500.2500, L501.4021, L503.7505, L100.0100 ####[facility] [address] [place], [address] Nucleated RBC (Bld) [#/Vol] 0 10*3/uL Normal 0-5 [facility] Comment on above: Performed By: #### L 500.2500, L501.4021, L503.7505, L100.0100 ####[facility] [address] [place], [address] Platelet mean volume (Bld) [Entitic vol] 10.2 fL Normal 6.2-12.0 [facility] Comment on above: Performed By: #### L 500.2500, L501.4021, L503.7505, L100.0100 ####[facility] [address] [place], [address] Platelets (Bld) [#/Vol] 428 10*3/uL Normal 150-450 [facility] Comment on above: Performed By: #### L 500.2500, L501.4021, L503.7505, L100.0100 ####[facility] [address] [place], [address] RBC (Bld) [#/Vol] 2.89 10*6/uL Low 4.6-6.2 [facility] Comment on above: Performed By: #### L 500.2500, L501.4021, L503.7505, L100.0100 ####[facility] [address] [place], [address] RDW SD 46.5 fl High 35.1-43.9 [facility] Comment on above: Performed By: #### L 500.2500, L501.4021, L503.7505, L100.0100 ####[facility] [address] [place], [address] WBC (Bld) [#/Vol] 11.2 10*3/uL High 4.4-11.0 [facility] Comment on above: Performed By: #### L 500.2500, L501.4021, L503.7505, L100.0100 ####[facility] [address] [place], [address] Calculated very low density lipoprotein (VLDL) cholesterol measurementOrdered By: Raymond Keenan on 02-15-2025 Calculated very low density lipoprotein (VLDL) cholesterol measurement 12 mg/dL 5-40 [facility] Carbon dioxide, total [Moles /volume] in Central venous bloodOrdered By: Dinesh Comer on 02-15-2025 CO2 [Moles/Vol] 21.0 mmol/L 21.0-32.0 [facility] Chest PA and Lateralon 02-15 Chest PA and Lateral Normal [facility] Chloride assayOrdered By: Willy Comer on 02-15-2025 Chloride [Moles/Vol] 97 mmol/L Low 98-108 [facility] Echo Completeon 02-15-2025 Echo Complete Normal [facility] Echocardiogram study reportO rdered By: Nabil Pierre on 02-15-2025 Study report [facility] Work Phone: Electrocardiogram reportOrde red By: Nikolai Tsang on 02-15-2025 EKG study [facility] Other Phone: Emergency Department Summary on 02-15-2025 Emergency Department Summary Normal [facility] Eosinophil percentageOrdered By: Dinesh Comer on 02-15-2025 Eosinophils/100 WBC (Bld) 0.1 % 0-5 [facility] Erythrocyte distribution wid th ratioOrdered By: Dinesh Comer on 02-15-2025 Erythrocyte distribution width (RBC) [Ratio] 13.9 % 11.6-14.6 [facility] Erythrocyte distribution wid th standard deviationOrdered By: Dinesh Comer on 02-15-2025 Erythrocyte distribution width (RBC) [Ratio] 46.5 fl High 35.1-43.9 [facility] Ferritinon 02-15-2025 Ferritin [Mass/Vol] 100 ng/mL Normal 37-417 [facility] Comment on above: Performed By: #### L 503.4493, L503.6055, L501.9985, L501.5200, L501.9520 ####[facility] [address] [place], [place], [id number] Glomerular filtration rate ( GFR) estimation/1.73 sq m using serum, plasma, or whole bOrdered By: Dinesh Comer on 02-15-2025 GFR/1.73 sq M.predicted among non-blacks MDRD (S/P/Bld) [Vol rate/Area] 30 mL/min/{1.73_m2} Low >60 [facility] H AND P Exam - Hospitaliston 02-15-2025 H&P Exam - Hospitalist Normal [facility] Hematocrit Auto (Bld) [Volum e fraction]Ordered By: Dinesh Comer on 02-15-2025 Hematocrit (Bld) [Volume fraction] 27.7 % Low 40-54 [facility] Hemoglobin A1con 02-15-2025 HbA1c (Bld) [Mass fraction] 6.6 % High <=5.6 [facility] Comment on above: Result Comment: Norm al < 5.7 % Prediabetic 5.7 - 6.4 % Diabetic >or= 6.5 % Please note range changes. Performed By: #### L 503.6550, L503.6030, L501.9985, L501.5200, L501.9520 ####[facility] [address] [place], [address] Hemoglobin A1c percentageOrd ered By: Raymond Keenan on 02-15-2025 HbA1c (Bld) [Mass fraction] 6.6 % High <5.7 [facility] Hemoglobin measurementOrdere d By: Dinesh Comer on 02-15-2025 Hemoglobin (Bld) [Mass/Vol] 9.5 g/dL Low 13.0-16.5 [facility] Immature granulocytes/100 WB C Auto (Bld)Ordered By: Dinesh Comer on 02-15-2025 Immature granulocytes/100 WBC (Bld) 0.800 % 0.0-0.9 [facility] Influenza virus A and B and SARS-CoV-2 (COVID-19) and Respiratory syncytial virus RNAOrdered By: Dinesh Comer on 02-15-2025 SARS-CoV-2 (COVID-19) RNA GARRETT+probe Ql (Unsp spec) [facility] Iron measurement (mass/mass) Ordered By: Raymond Keenan on 02-15-2025 Iron (Unsp spec) [Mass/Mass] 18 ug/dL Low 65-175 [facility] Iron+Iron Binding Capacityon 02-15-2025 Iron [Mass/Vol] 18 ug/dL Low 65-175 [facility] Comment on above: Performed By: #### L 503.6550, L503.6030, L501.9985, L501.5200, L501.9520 ####[facility] [address] [place], [address] IRON SATURATION 7.0 Low 9-55 [facility] Comment on above: Performed By: #### L 503.6550, L503.6030, L501.9985, L501.5200, L501.9520 ####[facility] [address] [place], [address] TIBC 268 ug/dL Normal 250-450 [facility] Comment on above: Performed By: #### L 503.6550, L503.6030, L501.9985, L501.5200, L501.9520 ####[facility] [address] [place], [address] UIBC 250 ug/dL Normal 228-428 [facility] Comment on above: Performed By: #### L 503.6550, L503.6030, L501.9985, L501.5200, L501.9520 ####[facility] [address] [place], [address] L499.0042on 02-15-2025 Trop T High Sen 82 ng/L Invalid Interpretation Code <=22 [facility] Comment on above: Order Comment: RECEI MORENA IN ERROR. Result Comment: Crit ical Result(s) Called at: by:??Results read back bysame.Critical Result(s) Called at 0606: by: JAQUELIN LOZADA??Results read back by same. Performed By: #### L 499.0042 ####[facility] [address] [place], [address] L499.0043on 02-15-2025 Trop T High Sen 69 ng/L Invalid Interpretation Code <=22 [facility] Comment on above: Result Comment: Crit ical Result(s) Called at 0650: by: MIRACLE PAL.??Results read back by same. Performed By: #### L 499.0043 ####[facility] [address] [place], [address] L501.4021on 02-15-2025 Trop T High Sen 83 ng/L Invalid Interpretation Code <=22 [facility] Comment on above: Result Comment: Crit ical Result(s) Called at 0351: by:??NBURNS TO AleaKICKResults read back by same. Performed By: #### L 500.2500, L501.4021, L503.7505, L100.0100 ####[facility] [address] [place], [address] L503.7505on 02-15-2025 Natriuretic peptide B (Bld) [Mass/Vol] 68632 pg/mL High <=1800 [facility] Comment on above: Result Comment: Hear t Failure Unlikely: < 300 pg/mLHeart Failure Likely< 50 Years: > 450 pg/mL50-75 Years: > 900 pg/mL>75 Years: > 1800 pg/mL Performed By: #### L 500.2500, L501.4021, L503.7505, L100.0100 ####[facility] [address] [place], [address] LDL calc ser/plasOrdered By: Raymond Keenan on 02-15-2025 Cholesterol in LDL [Mass/Vol] 66 mg/dL [facility] Lipid Profileon 02-15-2025 CHOL:HDL 3.02 Normal [facility] Comment on above: Performed By: #### L 500.4100 ####[facility] [address] [place], [address] Cholesterol [Mass/Vol] 117 mg/dL Normal <=200 [facility] Comment on above: Result Comment: Chol esterol level, Desirable <200 mg/dLBorderline high cholesterol 200-239 mg/dLHigh cholesterol >=240 mg/dLRecommendations of the NCEP Adult Treatment Panel for thefollowing risk-cutoff thresholds for the [place] Americanpulation. Performed By: #### L 500.4100 ####[facility] [address] [facility] [address] Cholesterol in HDL [Mass/Vol] 39 mg/dL Low [facility] Comment on above: Result Comment: Vickie onal Cholesterol Education Program (NCEP) guidelines:<40 mg/dL: Low HDL-cholesterol (major risk factor for CHD)>= 60 mg/dL: High HDL-cholesterol (negative risk factor forCHD)HDL-cholesterol is affected by a number of factors, e.g.smoking, exercise, hormones, sex and age. Performed By: #### L 500.4100 ####[facility] [address] [facility] [address] Cholesterol in LDL [Mass/Vol] 66 mg/dL Normal [facility] Comment on above: Result Comment: Bord ndazct=466-708 mg/dL Higher Smrp=217 mg/dL or greater Performed By: #### L 500.4100 ####[facility] [address] [facility] [address] Cholesterol in VLDL [Mass/Vol] 12 mg/dL Normal 5-40 [facility] Comment on above: Performed By: #### L 500.4100 ####[facility] [address] [facility] [address] Triglyceride [Mass/Vol] 60 mg/dL Normal [facility] Comment on above: Result Comment: The drugs N-Acetylcysteine and Metamizole may falselydepress this assay.Normal range: <150 mg/dLBorderline High: 150-199 mg/dLHigh: 200-499 mg/dLVery High: >500 mg/dL Performed By: #### L 500.4100 ####[facility] [address] [place], [address] M100.678on 02-15-2025 M100.678 Pending SARS-CoV-2 (COVID 19) Negative INFLUENZA A Negative INFLUENZA B Negative RSV PCR Negative Normal [facility] Comment on above: Performed By: #### M 100.678 ####[facility] [address] [place], [place], [address] MCV (mean corpuscular volume ) determinationOrdered By: Dinesh Comer on 02-15-2025 MCV (RBC) [Entitic vol] 95.8 fL High 80-94 [facility] MR/CON.PCM.NEon 02-15-2025 MR/CON.PCM.NE Normal [facility] Magnesiumon 02-15-2025 Magnesium [Mass/Vol] 2.0 mg/dL Normal 1.5-2.2 [facility] Comment on above: Performed By: #### L 503.6550, L503.6030, L501.9985, L501.5200, L501.9520 ####[facility] [address] [place], [place], [address] Magnesium measurement (mass/ volume)Ordered By: Raymond Keenan on 02-15-2025 Magnesium (Unsp spec) [Mass/Vol] 2.0 mg/dL 1.5-2.2 [facility] Magnetic resonance imaging r eportOrdered By: Jose Hughes on 02-15-2025 Study report [facility] Mean corpuscular hemoglobin (MCH) determinationOrdered By: Dinesh Comer on 02-15-2025 MCH (RBC) [Entitic mass] 32.9 pg High 27.0-32.0 [facility] Monocyte percentageOrdered B y: Dinesh Comer on 02-15-2025 Monocytes/100 WBC (Bld) 8.8 % 0-10 [facility] Natriuretic peptide.B prohor gurvinder N-Terminal [Mass/volume] in Serum or PlasmaOrdered By: Dinesh Comer on 02-15-2025 Natriuretic peptide.B prohormone N-Terminal [Mass/Vol] 60121 pg/mL High <1800 [facility] Neutrophil percentageOrdered By: Dinesh Comer on 02-15-2025 Neutrophils/100 WBC (Bld) 83.7 % High 47-70 [facility] No Panel InformationOrdered By: Raymond Keenan on 02-15-2025 250 ug/dL 228-428 [facility] Phosphoruson 02-15-2025 Phosphate [Mass/Vol] 3.2 mg/dL Normal 2.7-4.5 [facility] Comment on above: Performed By: #### L 501.2300 ####[facility] [address] [place], [place], [address] Platelet countOrdered By: Willy Comer on 02-15-2025 Platelets (Bld) [#/Vol] 428 10*3/uL 150-450 [facility] Potassium measurement (mass/ volume)Ordered By: Dinesh Comer on 02-15-2025 Potassium (Unsp spec) [Mass/Vol] 4.1 mmol/L 3.3-5.1 [facility] RBC Auto (Bld) [#/Vol]Ordere d By: Dinesh Comer on 02-15-2025 RBC (Bld) [#/Vol] 2.89 10*6/uL Low 4.6-6.2 [facility] RESPIRATORY PANEL MOLECULARo n 02-15-2025 RP PANEL Normal [facility] Comment on above: Performed By: #### M 100.638 ####[facility] [address] [place], [place], [address] Respiratory pathogens detect ion panel by molecular detection methodOrdered By: Raymond Keenan on 02-15-2025 Respiratory pathogens DNA and RNA panel GARRETT+probe (Resp) [facility] Serum creatinine measurement (mass/volume)Ordered By: Dinesh Comer on 02-15-2025 Creatinine [Mass/Vol] 2.12 mg/dL High 0.70-1.20 [facility] Serum glucose measurement (m ass/volume)Ordered By: Dinesh Comer on 02-15-2025 Glucose [Mass/Vol] 190 mg/dL High 70-99 [facility] Serum or plasma calcium harley urement (mass/volume)Ordered By: Dinesh Comer on 02-15-2025 Calcium [Mass/Vol] 9.5 mg/dL 7.6-11.0 [facility] Serum or plasma cholesterol in HDL measurement (mass/volume)Ordered By: Raymond Keenan on 02-15-2025 Cholesterol in HDL [Mass/Vol] 39 mg/dL Low >40 [facility] Serum or plasma cholesterol measurement (mass/volume)Ordered By: Raymond Keenan on 02-15-2025 Cholesterol [Mass/Vol] 117 mg/dL <201 [facility] Serum or plasma ferritin jaelyn surement (mass/volume)Ordered By: Raymond Keenan on 02-15-2025 Ferritin [Mass/Vol] 100 ng/mL 37-417 [facility] Serum or plasma iron saturat ion measurement (mass fraction)Ordered By: Raymond Keenan on 02-15-2025 Iron saturation [Mass fraction] 7.0 % Low 9-55 [facility] Serum or plasma urea nitroge n measurement (mass/volume)Ordered By: Dinesh Comer on 02-15-2025 Urea nitrogen [Mass/Vol] 48 mg/dL High 4-19 [facility] Sodium levelOrdered By: Dinesh Comer on 02-15-2025 Sodium [Moles/Vol] 133 mmol/L 133-145 [facility] TSH DL <= 0.005 mIU/L QnOrde red By: Raymond Keenan on 02-15-2025 TSH Qn 2.110 uIU/mL 0.300-4.200 [facility] Thyroid Stim Hormone (TSH)on 02-15-2025 TSH 2.110 uIU/mL Normal 0.300-4.200 [facility] Comment on above: Performed By: #### L 503.6550, L503.6030, L501.9941, L501.5200, L501.9586 ####[facility] [address] [place], [address] Troponin T.cardiac [Mass/vol ume] in Serum or Plasma by High sensitivity methodOrdered By: Raymond Keenan on 02-15-2025 Troponin T.cardiac High sensitivity method [Mass/Vol] 69 ng/L High <22 [facility] Troponin T.cardiac [Mass/vol ume] in Serum or Plasma by High sensitivity methodOrdered By: Dinesh Comer on 02-15-2025 Troponin T.cardiac High sensitivity method [Mass/Vol] 82 ng/L High <22 [facility] Troponin T.cardiac High sensitivity method [Mass/Vol] 83 ng/L High <22 [facility] White blood cell (WBC) count Ordered By: Dinesh Comer on 02-15-2025 WBC (Bld) [#/Vol] 11.2 10*3/uL High 4.4-11.0 [facility] CNOVon 02-09-2025 CNOV Office Visit (VASSWS ) DESIREE AMES ([id number]) 1935 M Date Time Provider Department 02/09/25 10:15 AM DARRYL MALLORY VASSWS During your visit today, we recorded the following information about you: Pulse Blood pressure 67/minute 131/62 Darryl Mallory DO 03/09/2025 2:43 PM Signed [facility]ASCULAR [facility]GERY OUTPATIENT VISIT DATE February 09, 2025 OUTPATIENT VISIT TYPE ESTABLISHED SERVICE DATE: 02/09/2025 SERVICE TIME: 11:50 AM PRIMARY CARE PHYSICIAN: Riaz Garrison MD HISTORY OF PRESENT ILLNESS: Mr. Ames is a 89 year old male who presents today for a vascular surgery follow-up visit for peripheral arterial disease. He has history of femoral endarterectomy with Dr. Zapata in 2023. He does admit to pain when ambulating. 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 Hilliard. Coronary atherosclerosis of unspecified type of vessel, [place] or graft 06/13/2005 Diverticulitis of colon (without mention of hemorrhage)(562.11) 06/12/2005 Former smoker 08/21/2023 Heart attack (HCC) Hypertrophy of prostate without urinary obstruction and other lower urinary tract symptoms (LUTS) 06/12/2005 Memory disturbance 07/24/2010 Mitral valve disorders(424.0) 06/12/2005 Other and unspecified hyperlipidemia 06/13/2005 Other specified disorders of arteries and arterioles 06/12/2005 Peripheral vascular disease, unspecified 06/12/2005 Personal history of colonic polyps 06/13/2005 Tubular adenoma. 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 S/P femoral-popliteal bypass surgery 08/07/2018 Snoring Superficial femoral artery occlusion 08/21/2023 Superficial occlusion of femoral artery Symptom of leg swelling 12/12/2023 Tobacco use disorder 06/12/2005 Type II or unspecified type diabetes mellitus without mention of complication, not stated as uncontrolled 01/24/2011 Unspecified essential hypertension 06/12/2005 Venous insufficiency (chronic) (peripheral) 05/11/2015 PAST SURGICAL HISTORY Procedure Laterality Date APPENDECTOMY DONE W/OTHR MAJOR SURGERY 1998 With inguinal hernia repair [facility] INCL FLUOR GDNCE DX W/CELL WASHG [...] percut, Prox. RCA. TRANSURETHRAL ELEC-SURG PROSTATECTOM 03/07/2022 SOCIAL HISTORY Social History Tobacco Use Smoking status: Former Current packs/day: 0.00 Average packs/day: 0.5 packs/day for 50.0 years (25.0 ttl pk-yrs) Types: Cigarettes, Cigars Start date: 02/04/1958 Quit date: 02/05/2008 Years since quittin.0 Smokeless tobacco: Never Vaping Use Vaping status: Never Used Substance Use Topics Alcohol use: Yes Comment: Rare Drug use: No MEDICATIONS: gabapentin (NEURONTIN) 100 mg capsule Take 1 capsule by mouth once daily. Insulin Aspart (NOVOLOG) 100 unit/mL heel top lift splitter (more content not included)... Normal [facility] Stool Occult Blood iFOBon STOB Negative Normal [facility] Comment on above: Performed By: #### M 100.7900 ####[facility] [address] [place], [address] Stool gastrointestinal hemog lobin detection by immunologic methodOrdered By: Riaz Garrison on 02-05-2025 Lower GI hemoglobin IA Ql (Stl) [facility] Lower GI hemoglobin IA Ql (Stl) Positive Abnormal [facility] Cardiology Visit Reporton Cardiology Visit Report Normal [facility] Stool gastrointestinal hemog lobin detection by immunologic methodOrdered By: Riaz Garrison on 02-04-2025 Lower GI hemoglobin IA Ql (Stl) [facility] Absolute lymphocyte countOrd ered By: Riaz Garrison on 02-01-2025 Lymphocytes Auto (Unsp spec) [#/Vol] 0.87 10*3/uL 0.83-4.51 [facility] Anion gap in Serum or Plasma Ordered By: Riaz Garrison on 02-01-2025 Anion gap [Moles/Vol] 14 mmol/L 5-15 [facility] Automated lymphocyte count a s percentage of total leukocytesOrdered By: Riaz Garrison on 02-01-2025 Lymphocytes/100 WBC Auto (Unsp spec) 11.1 % Low 19-41 [facility] BUN/creatinine ratioOrdered By: Riazlilia Garrison on 02-01-2025 Urea nitrogen/Creatinine [Mass ratio] 22.3 mg/mg High 10-20 [facility] Basic Metabolic Profile (BMP )on 02-01-2025 BUN/CRE 22.3 RATIO High 10-20 [facility] Comment on above: Performed By: #### L 503.6030, L500.2500, L503.0106, L503.6550, L100.0100 ####[facility] [address] [place], [address] Calcium [Mass/Vol] 9.4 mg/dL Normal 7.6-11.0 [facility] Comment on above: Performed By: #### L 503.6030, L500.2500, L503.0106, L503.6550, L100.0100 ####[facility] [address] [place], [address] Chloride [Moles/Vol] 96 mmol/L Low 98-108 [facility] Comment on above: Performed By: #### L 503.6030, L500.2500, L503.0106, L503.6550, L100.0100 ####[facility] [address] [place], [address] CO2 [Moles/Vol] 24.1 mmol/L Normal 21.0-32.0 [facility] Comment on above: Performed By: #### L 503.6030, L500.2500, L503.0106, L503.6550, L100.0100 ####[facility] [address] [place], [address] Creatinine [Mass/Vol] 2.32 mg/dL High 0.70-1.20 [facility] Comment on above: Performed By: #### L 503.6030, L500.2500, L503.0106, L503.6550, L100.0100 ####[facility] [address] [place], [address] GAP 14 Normal 5-15 [facility] Comment on above: Performed By: #### L 503.6030, L500.2500, L503.0106, L503.6550, L100.0100 ####[facility] [address] [place], [address] GFR/1.73 sq M.predicted among non-blacks MDRD (S/P/Bld) [Vol rate/Area] 27 mL/min/{1.73_m2} Low >60 [facility] Comment on above: Result Comment: mL/m in/1.73m2 CKD-EPI Creatinine Equation (2020) Performed By: #### L 503.6030, L500.2500, L503.0106, L503.6550, L100.0100 ####[facility] [address] [place], [address] Glucose [Mass/Vol] 191 mg/dL High 70-99 [facility] Comment on above: Performed By: #### L 503.6030, L500.2500, L503.0106, L503.6550, L100.0100 ####[facility] [address] [place], [address] Potassium [Moles/Vol] 3.7 mmol/L Normal 3.3-5.1 [facility] Comment on above: Performed By: #### L 503.6030, L500.2500, L503.0106, L503.6550, L100.0100 ####[facility] [address] [place], [address] Sodium [Moles/Vol] 134 mmol/L Normal 133-145 [facility] Comment on above: Performed By: #### L 503.6030, L500.2500, L503.0106, L503.6550, L100.0100 ####[facility] [address] [place], [address] Urea nitrogen [Mass/Vol] 52 mg/dL High 4-19 [facility] Comment on above: Performed By: #### L 503.6030, L500.2500, L503.0106, L503.6550, L100.0100 ####[facility] [address] [place], [address] Basophil percentageOrdered B y: Riaz Greenwich on 02-01-2025 Basophils/100 WBC (Bld) 0.4 % 0-1 [facility] CBC W/Diff, Automatedon 04-2 Absolute Lymph 0.87 X10 3/uL Normal 0.83-4.51 [facility] Comment on above: Performed By: #### L 503.6030, L500.2500, L503.0106, L503.6550, L100.0100 ####[facility] [address] [place], [address] Absolute Neut 6.1 X10 3/uL Normal 2.0-7.7 [facility] Comment on above: Performed By: #### L 503.6030, L500.2500, L503.0106, L503.6550, L100.0100 ####[facility] [address] [place], [address] Basophils/100 WBC (Bld) 0.4 % Normal 0-1 [facility] Comment on above: Performed By: #### L 503.6030, L500.2500, L503.0106, L503.6550, L100.0100 ####[facility] [address] [place], [address] Eosinophils/100 WBC (Bld) 1.4 % Normal 0-5 [facility] Comment on above: Performed By: #### L 503.6030, L500.2500, L503.0106, L503.6550, L100.0100 ####[facility] [address] [place], [address] Erythrocyte distribution width (RBC) [Ratio] 14.1 % Normal 11.6-14.6 [facility] Comment on above: Performed By: #### L 503.6030, L500.2500, L503.0106, L503.6550, L100.0100 ####[facility] [address] [place], [address] Hematocrit (Bld) [Volume fraction] 29.9 % Low 40-54 [facility] Comment on above: Performed By: #### L 503.6030, L500.2500, L503.0106, L503.6550, L100.0100 ####[facility] [address] [place], [address] Hemoglobin (Bld) [Mass/Vol] 10.7 g/dL Low 13.0-16.5 [facility] Comment on above: Performed By: #### L 503.6030, L500.2500, L503.0106, L503.6550, L100.0100 ####[facility] [address] [place], [address] IG% 0.800 Normal 0.0-0.9 [facility] Comment on above: Result Comment: IG% - Immature Granulocytes (promyelocytes, myelocytes andmetamyelocytes) > 1% indicates that a LEFT SHIFT is Present. Performed By: #### L 503.6030, L500.2500, L503.0106, L503.6550, L100.0100 ####[facility] [address] [place], [address] Lymphocytes/100 WBC (Bld) 11.1 % Low 19-41 [facility] Comment on above: Performed By: #### L 503.6030, L500.2500, L503.0106, L503.6550, L100.0100 ####[facility] [address] [place], [address] MCH (RBC) [Entitic mass] 34.5 pg High 27.0-32.0 [facility] Comment on above: Performed By: #### L 503.6030, L500.2500, L503.0106, L503.6550, L100.0100 ####[facility] [address] [place], [address] MCHC (RBC) [Mass/Vol] 35.8 g/dL Normal 32-36 [facility] Comment on above: Performed By: #### L 503.6030, L500.2500, L503.0106, L503.6550, L100.0100 ####[facility] [address] [place], [address] MCV (RBC) [Entitic vol] 96.5 fL High 80-94 [facility] Comment on above: Performed By: #### L 503.6030, L500.2500, L503.0106, L503.6550, L100.0100 ####[facility] [address] [place], [address] Monocytes/100 WBC (Bld) 8.5 % Normal 0-10 [facility] Comment on above: Performed By: #### L 503.6030, L500.2500, L503.0106, L503.6550, L100.0100 ####[facility] [address] [place], [address] Neutrophils/100 WBC (Bld) 77.8 % High 47-70 [facility] Comment on above: Performed By: #### L 503.6030, L500.2500, L503.0106, L503.6550, L100.0100 ####[facility] [address] [place], [address] Nucleated RBC (Bld) [#/Vol] 0 10*3/uL Normal 0-5 [facility] Comment on above: Performed By: #### L 503.6030, L500.2500, L503.0106, L503.6550, L100.0100 ####[facility] [address] [place], [address] Platelet mean volume (Bld) [Entitic vol] 10.2 fL Normal 6.2-12.0 [facility] Comment on above: Performed By: #### L 503.6030, L500.2500, L503.0106, L503.6550, L100.0100 ####[facility] [address] [place], [address] Platelets (Bld) [#/Vol] 324 10*3/uL Normal 150-450 [facility] Comment on above: Performed By: #### L 503.6030, L500.2500, L503.0106, L503.6550, L100.0100 ####[facility] [address] [place], [address] RBC (Bld) [#/Vol] 3.10 10*6/uL Low 4.6-6.2 [facility] Comment on above: Performed By: #### L 503.6030, L500.2500, L503.0106, L503.6550, L100.0100 ####[facility] [address] [place], [address] RDW SD 47.8 fl High 35.1-43.9 [facility] Comment on above: Performed By: #### L 503.6030, L500.2500, L503.0106, L503.6550, L100.0100 ####[facility] [address] [place], [address] WBC (Bld) [#/Vol] 7.9 10*3/uL Normal 4.4-11.0 [facility] Comment on above: Performed By: #### L 503.6030, L500.2500, L503.0106, L503.6550, L100.0100 ####[facility] [address], [address] Carbon dioxide, total [Moles /volume] in Central venous bloodOrdered By: Riaz Greenwich on 02-01-2025 CO2 [Moles/Vol] 24.1 mmol/L 21.0-32.0 [facility] Chloride assayOrdered By: Al ycia Meli on 02-01-2025 Chloride [Moles/Vol] 96 mmol/L Low 98-108 [facility] Eosinophil percentageOrdered By: Riaz Greenwich on 02-01-2025 Eosinophils/100 WBC (Bld) 1.4 % 0-5 [facility] Erythrocyte distribution wid th ratioOrdered By: Riaz Greenwich on 02-01-2025 Erythrocyte distribution width (RBC) [Ratio] 14.1 % 11.6-14.6 [facility] Erythrocyte distribution wid th standard deviationOrdered By: Riaz Greenwich on 02-01-2025 Erythrocyte distribution width (RBC) [Ratio] 47.8 fl High 35.1-43.9 [facility] Ferritinon 02-01-2025 Ferritin [Mass/Vol] 98 ng/mL Normal 37-417 [facility] Comment on above: Performed By: #### L 503.6030, L500.2500, L503.0106, L503.6550, L100.0100 ####[facility] [address] [place], [place], [id number] Glomerular filtration rate ( GFR) estimation/1.73 sq m using serum, plasma, or whole bOrdered By: Riaz Garrison on 02-01-2025 GFR/1.73 sq M.predicted among non-blacks MDRD (S/P/Bld) [Vol rate/Area] 27 mL/min/{1.73_m2} Low >60 [facility] Hematocrit Auto (Bld) [Volum e fraction]Ordered By: Riaz Garrison on 02-01-2025 Hematocrit (Bld) [Volume fraction] 29.9 % Low 40-54 [facility] Hemoglobin measurementOrdere d By: Riaz Garrison on 02-01-2025 Hemoglobin (Bld) [Mass/Vol] 10.7 g/dL Low 13.0-16.5 [facility] Immature granulocytes/100 WB C Auto (Bld)Ordered By: Riaz Garrison on 02-01-2025 Immature granulocytes/100 WBC (Bld) 0.800 % 0.0-0.9 [facility] Inital Evaluation (1) - PTon 02-01-2025 Inital Evaluation (1) - PT Normal [facility] Iron measurement (mass/mass) Ordered By: Riaz Garrison on 02-01-2025 Iron (Unsp spec) [Mass/Mass] 25 ug/dL Low 65-175 [facility] Iron+Iron Binding Capacityon 02-01-2025 Iron [Mass/Vol] 25 ug/dL Low 65-175 [facility] Comment on above: Performed By: #### L 503.6030, L500.2500, L503.0106, L503.6550, L100.0100 ####[facility] [address] [place], [place], [id number] IRON SATURATION 9.0 Normal 9-55 [facility] Comment on above: Performed By: #### L 503.6030, L500.2500, L503.0106, L503.6550, L100.0100 ####[facility] [address] [place], [address] TIBC 280 ug/dL Normal 250-450 [facility] Comment on above: Performed By: #### L 503.6030, L500.2500, L503.0106, L503.6550, L100.0100 ####[facility] [address] [place], [address] UIBC 255 ug/dL Normal 228-428 [facility] Comment on above: Performed By: #### L 503.6030, L500.2500, L503.0106, L503.6550, L100.0100 ####[facility] [address] [place], [address] MCV (mean corpuscular volume ) determinationOrdered By: Riaz Garrison on 02-01-2025 MCV (RBC) [Entitic vol] 96.5 fL High 80-94 [facility] Mean corpuscular hemoglobin (MCH) determinationOrdered By: Riaz Garrison on 02-01-2025 MCH (RBC) [Entitic mass] 34.5 pg High 27.0-32.0 [facility] Monocyte percentageOrdered B y: Riaz Garrison on 02-01-2025 Monocytes/100 WBC (Bld) 8.5 % 0-10 [facility] Neutrophil percentageOrdered By: Riaz Garrison on 02-01-2025 Neutrophils/100 WBC (Bld) 77.8 % High 47-70 [facility] No Panel InformationOrdered By: Riaz Garrison on 02-01-2025 255 ug/dL 228-428 [facility] 6.6 % High 4.2-6.3 [facility] Platelet countOrdered By: Bhargav Garrison on 02-01-2025 Platelets (Bld) [#/Vol] 324 10*3/uL 150-450 [facility] Potassium measurement (mass/ volume)Ordered By: Riaz Garrison on 02-01-2025 Potassium (Unsp spec) [Mass/Vol] 3.7 mmol/L 3.3-5.1 [facility] RBC Auto (Bld) [#/Vol]Ordere d By: Riaz Garrison on 02-01-2025 RBC (Bld) [#/Vol] 3.10 10*6/uL Low 4.6-6.2 [facility] Serum creatinine measurement (mass/volume)Ordered By: Riaz Garrison on 02-01-2025 Creatinine [Mass/Vol] 2.32 mg/dL High 0.70-1.20 [facility] Serum glucose measurement (m ass/volume)Ordered By: Riaz Garrison on 02-01-2025 Glucose [Mass/Vol] 191 mg/dL High 70-99 [facility] Serum or plasma calcium harley urement (mass/volume)Ordered By: Riaz Garrison on 02-01-2025 Calcium [Mass/Vol] 9.4 mg/dL 7.6-11.0 [facility] Serum or plasma ferritin jaelyn surement (mass/volume)Ordered By: Riaz Garrison on 02-01-2025 Ferritin [Mass/Vol] 98 ng/mL 37-417 [facility] Serum or plasma iron saturat ion measurement (mass fraction)Ordered By: Riaz Garrison on 02-01-2025 Iron saturation [Mass fraction] 9.0 % 9-55 [facility] Serum or plasma urea nitroge n measurement (mass/volume)Ordered By: Riaz Garrison on 02-01-2025 Urea nitrogen [Mass/Vol] 52 mg/dL High 4-19 [facility] Sodium levelOrdered By: Mina Garrison on 02-01-2025 Sodium [Moles/Vol] 134 mmol/L 133-145 [facility] Vitamin B12on 02-01-2025 Cobalamin (Vitamin B12) [Mass/Vol] 1183 pg/mL High 180-914 [facility] Comment on above: Performed By: #### L 503.6030, L500.2500, L503.0106, L503.6550, L100.0100 ####[facility] [address] [place], [place], [id number] Vitamin B12 ser/plasOrdered By: Riaz Garrison on 02-01-2025 Cobalamin (Vitamin B12) [Mass/Vol] 1183 pg/mL High 180-914 [facility] White blood cell (WBC) count Ordered By: Riaz Garrison on 02-01-2025 WBC (Bld) [#/Vol] 7.9 10*3/uL 4.4-11.0 [facility] Internal Medicine Office Vis iton 01-31-2025 Internal Medicine Office Visit Normal [facility] Absolute lymphocyte countOrd ered By: Wellington Lay on 01-29-2025 Lymphocytes Auto (Unsp spec) [#/Vol] 1.22 10*3/uL 0.83-4.51 [facility] Absolute neutrophil countOrd ered By: Wellington Lay on 01-29-2025 Absolute neutrophil count 6.4 X10^3/uL 2.0-7.7 [facility] Anion gap [Moles/Vol]Ordered By: Wellington Lay on 01-29-2025 Anion gap in Serum or Plasma 13 5-15 [facility] Anion gap in Serum or Plasma Ordered By: Wellington Lay on 01-29-2025 Anion gap [Moles/Vol] 13 mmol/L 5- [facility] Automated lymphocyte count a s percentage of total leukocytesOrdered By: Wellington Lay on 01-29-2025 Lymphocytes/100 WBC Auto (Unsp spec) 14.2 % Low 19-41 [facility] BUN/creatinine ratioOrdered By: Wellington Lay on 01-29-2025 Urea nitrogen/Creatinine [Mass ratio] 21.5 mg/mg High 10-20 [facility] BUN/creatinine ratio 21.5 RATIO High 10-20 [facility] Basic Metabolic Profile (BMP )on 01-29-2025 BUN/CRE 21.5 RATIO High 10-20 [facility] Comment on above: Performed By: #### L 501.4021, L500.2500, L100.0100 ####[facility] [address] [place], [place], [id number] Calcium [Mass/Vol] 9.7 mg/dL Normal 7.6-11.0 [facility] Comment on above: Performed By: #### L 501.4021, L500.2500, L100.0100 ####[facility] [address] [place], [address] Chloride [Moles/Vol] 97 mmol/L Low 98-108 [facility] Comment on above: Performed By: #### L 501.4021, L500.2500, L100.0100 ####[facility] [address] [place], [address] CO2 [Moles/Vol] 26.2 mmol/L Normal 21.0-32.0 [facility] Comment on above: Performed By: #### L 501.4021, L500.2500, L100.0100 ####[facility] [address] [place], [address] Creatinine [Mass/Vol] 2.59 mg/dL High 0.70-1.20 [facility] Comment on above: Performed By: #### L 501.4021, L500.2500, L100.0100 ####[facility] [address] [place], [address] ECRCL 21.24 ml/min Low 50-250 [facility] Comment on above: Performed By: #### L 501.4021, L500.2500, L100.0100 ####[facility] [address] [place], [address] GAP 13 Normal 5-15 [facility] Comment on above: Performed By: #### L 501.4021, L500.2500, L100.0100 ####[facility] [address] [place], [address] GFR/1.73 sq M.predicted among non-blacks MDRD (S/P/Bld) [Vol rate/Area] 23 mL/min/{1.73_m2} Low >60 [facility] Comment on above: Result Comment: mL/m in/1.73m2 CKD-EPI Creatinine Equation (2020) Performed By: #### L 501.4021, L500.2500, L100.0100 ####[facility] [address] [place], [address] Glucose [Mass/Vol] 74 mg/dL Normal 70-99 [facility] Comment on above: Performed By: #### L 501.4021, L500.2500, L100.0100 ####[facility] [address] [place], [address] Potassium [Moles/Vol] 4.2 mmol/L Normal 3.3-5.1 [facility] Comment on above: Performed By: #### L 501.4021, L500.2500, L100.0100 ####[facility] [address] [place], [address] Sodium [Moles/Vol] 137 mmol/L Normal 133-145 [facility] Comment on above: Performed By: #### L 501.4021, L500.2500, L100.0100 ####[facility] [address] [place], [address] Urea nitrogen [Mass/Vol] 56 mg/dL High 4-19 [facility] Comment on above: Performed By: #### L 501.4021, L500.2500, L100.0100 ####[facility] [address] [place], [address] Basophil percentageOrdered B y: Wellington Lay on 01-29-2025 Basophils/100 WBC (Bld) 0.5 % 0-1 [facility] Basophil percentage 0.5 % 0-1 [facility] CBC W/Diff, Automatedon 01-06 Absolute Lymph 1.22 X10 3/uL Normal 0.83-4.51 [facility] Comment on above: Performed By: #### L 501.4021, L500.2500, L100.0100 ####[facility] [address] [place], [address] Absolute Neut 6.4 X10 3/uL Normal 2.0-7.7 [facility] Comment on above: Performed By: #### L 501.4021, L500.2500, L100.0100 ####[facility] [address] [place], [address] Basophils/100 WBC (Bld) 0.5 % Normal 0-1 [facility] Comment on above: Performed By: #### L 501.4021, L500.2500, L100.0100 ####[facility] [address] [place], [address] Eosinophils/100 WBC (Bld) 0.8 % Normal 0-5 [facility] Comment on above: Performed By: #### L 501.4021, L500.2500, L100.0100 ####[facility] [address] [place], [address] Erythrocyte distribution width (RBC) [Ratio] 15.6 % High 11.6-14.6 [facility] Comment on above: Performed By: #### L 501.4021, L500.2500, L100.0100 ####[facility] [address] [place], [address] Hematocrit (Bld) [Volume fraction] 31.0 % Low 40-54 [facility] Comment on above: Performed By: #### L 501.4021, L500.2500, L100.0100 ####[facility] [address] [place], [address] Hemoglobin (Bld) [Mass/Vol] 11.6 g/dL Low 13.0-16.5 [facility] Comment on above: Performed By: #### L 501.4021, L500.2500, L100.0100 ####[facility] [address] [place], [address] IG% 0.300 Normal 0.0-0.9 [facility] Comment on above: Result Comment: IG% - Immature Granulocytes (promyelocytes, myelocytes andmetamyelocytes) > 1% indicates that a LEFT SHIFT is Present. Performed By: #### L 501.4021, L500.2500, L100.0100 ####[facility] [address] [place], [address] Lymphocytes/100 WBC (Bld) 14.2 % Low 19-41 [facility] Comment on above: Performed By: #### L 501.4021, L500.2500, L100.0100 ####[facility] [address] [place], [address] MCH (RBC) [Entitic mass] 36.8 pg High 27.0-32.0 [facility] Comment on above: Performed By: #### L 501.4021, L500.2500, L100.0100 ####[facility] [address] [place], [address] MCHC (RBC) [Mass/Vol] 37.4 g/dL High 32-36 [facility] Comment on above: Performed By: #### L 501.4021, L500.2500, L100.0100 ####[facility] [address] [place], [address] MCV (RBC) [Entitic vol] 98.4 fL High 80-94 [facility] Comment on above: Performed By: #### L 501.4021, L500.2500, L100.0100 ####[facility] [address] [place], [address] Monocytes/100 WBC (Bld) 10.1 % High 0-10 [facility] Comment on above: Performed By: #### L 501.4021, L500.2500, L100.0100 ####[facility] [address] [place], [address] Neutrophils/100 WBC (Bld) 74.1 % High 47-70 [facility] Comment on above: Performed By: #### L 501.4021, L500.2500, L100.0100 ####[facility] [address] [place], [address] Nucleated RBC (Bld) [#/Vol] 0 10*3/uL Normal 0-5 [facility] Comment on above: Performed By: #### L 501.4021, L500.2500, L100.0100 ####[facility] [address] [place], [address] Platelet mean volume (Bld) [Entitic vol] 10.0 fL Normal 6.2-12.0 [facility] Comment on above: Performed By: #### L 501.4021, L500.2500, L100.0100 ####[facility] [address] [place], [address] Platelets (Bld) [#/Vol] 353 10*3/uL Normal 150-450 [facility] Comment on above: Performed By: #### L 501.4021, L500.2500, L100.0100 ####[facility] [address] [place], [address] RBC (Bld) [#/Vol] 3.15 10*6/uL Low 4.6-6.2 [facility] Comment on above: Performed By: #### L 501.4021, L500.2500, L100.0100 ####[facility] [address] [place], [address] RDW SD 48.8 fl High 35.1-43.9 [facility] Comment on above: Performed By: #### L 501.4021, L500.2500, L100.0100 ####[facility] [address] [place], [address] WBC (Bld) [#/Vol] 8.6 10*3/uL Normal 4.4-11.0 [facility] Comment on above: Performed By: #### L 501.4021, L500.2500, L100.0100 ####[facility] [address] [place], [address] Calcium [Mass/Vol]Ordered By : Wellington Lay on 01-29-2025 Serum or plasma calcium measurement (mass/volume) 9.7 mg/dL 7.6-11.0 [facility] Carbon dioxide, total [Moles /volume] in Central venous bloodOrdered By: Wellington Lay on 01-29-2025 CO2 [Moles/Vol] 26.2 mmol/L 21.0-32.0 [facility] Carbon dioxide, total [Moles/volume] in Central venous blood 26.2 mmol/L 21.0-32.0 [facility] Chest PA and Lateralon 01-29 Chest PA and Lateral Normal [facility] Chloride assayOrdered By: Kvng Lay on 01-29-2025 Chloride [Moles/Vol] 97 mmol/L Low 98-108 [facility] Chloride assay 97 mmol/L Low 98-108 [facility] Creatinine [Mass/Vol]Ordered By: Wellington Lay on 01-29-2025 Serum creatinine measurement (mass/volume) 2.59 mg/dL High 0.70-1.20 [facility] Emergency Department Summary on 01-29-2025 Emergency Department Summary Normal [facility] Eosinophil percentageOrdered By: Wellington Lay on 01-29-2025 Eosinophils/100 WBC (Bld) 0.8 % 0-5 [facility] Eosinophil percentage 0.8 % 0-5 [facility] Erythrocyte distribution wid th (RBC) [Ratio]Ordered By: Wellington Lay on 01-29-2025 Erythrocyte distribution width ratio 15.6 % High 11.6-14.6 [facility] Erythrocyte distribution width standard deviation 48.8 fl High 35.1-43.9 [facility] Erythrocyte distribution wid th ratioOrdered By: Wellington Lay on 01-29-2025 Erythrocyte distribution width (RBC) [Ratio] 15.6 % High 11.6-14.6 [facility] Erythrocyte distribution wid th standard deviationOrdered By: Wellington Lay on 01-29-2025 Erythrocyte distribution width (RBC) [Ratio] 48.8 fl High 35.1-43.9 [facility] Estimation of creatinine ruben aranceOrdered By: Wellington Lay on 01-29-2025 Estimation of creatinine clearance 21.24 ml/min Low 50-250 [facility] GFR/1.73 sq M.predicted karly g non-blacks MDRD (S/P/Bld) [Vol rate/Area]Ordered By: Wellington Lay on 01-29-2025 Glomerular filtration rate (GFR) estimation/1.73 sq m using serum, plasma, or whole b 23 Low >60 [facility] Glomerular filtration rate ( GFR) estimation/1.73 sq m using serum, plasma, or whole bOrdered By: Wellington Lay on 01-29-2025 GFR/1.73 sq M.predicted among non-blacks MDRD (S/P/Bld) [Vol rate/Area] 23 mL/min/{1.73_m2} Low >60 [facility] Glucose [Mass/Vol]Ordered By : Wellington Lay on 01-29-2025 Serum glucose measurement (mass/volume) 74 mg/dL 70-99 [facility] Hematocrit Auto (Bld) [Volum e fraction]Ordered By: Wellington Lay on 01-29-2025 Hematocrit (Bld) [Volume fraction] 31.0 % Low 40-54 [facility] Automated blood hematocrit (percentage) 31.0 % Low 40-54 [facility] Hemoglobin measurementOrdere d By: Wellington Lay on 01-29-2025 Hemoglobin (Bld) [Mass/Vol] 11.6 g/dL Low 13.0-16.5 [facility] Hemoglobin measurement 11.6 g/dL Low 13.0-16.5 [facility] Immature granulocytes/100 WB C Auto (Bld)Ordered By: Wellington Lay on 01-29-2025 Immature granulocytes/100 WBC (Bld) 0.300 % 0.0-0.9 [facility] Automated immature granulocyte percentage 0.300 % 0.0-0.9 [facility] L499.0042on 01-29-2025 Trop T High Sen 39 ng/L High <=22 [facility] Comment on above: Performed By: #### L 499.0042 ####[facility] [address] [place], [address] L499.0043on 01-29-2025 Trop T High Sen 37 ng/L High <=22 [facility] Comment on above: Performed By: #### L 499.0043 ####[facility] [address] [place], [address] L501.4021on 01-29-2025 Trop T High Sen 46 ng/L High <=22 [facility] Comment on above: Performed By: #### L 501.4021, L500.2500, L100.0100 ####[facility] [address] [place], [address] Lymphocytes Auto (Unsp spec) [#/Vol]Ordered By: Wellington Lay on 01-29-2025 Absolute lymphocyte count 1.22 X10^3/uL 0.83-4.51 [facility] Lymphocytes/100 WBC Auto (Un sp spec)Ordered By: Wellington Lay on 01-29-2025 Automated lymphocyte count as percentage of total leukocytes 14.2 % Low 19-41 [facility] MCV (RBC) [Entitic vol]Order ed By: Wellington Lay on 01-29-2025 MCV (mean corpuscular volume) determination 98.4 fL High 80-94 [facility] MCV (mean corpuscular volume ) determinationOrdered By: Wellington Lay on 01-29-2025 MCV (RBC) [Entitic vol] 98.4 fL High 80-94 [facility] Mean corpuscular hemoglobin (MCH) determinationOrdered By: Wellington Lay on 01-29-2025 MCH (RBC) [Entitic mass] 36.8 pg High 27.0-32.0 [facility] Mean corpuscular hemoglobin (MCH) determination 36.8 pg High 27.0-32.0 [facility] Mean corpuscular hemoglobin concentration (MCHC) determinationOrdered By: Wellington Lay on 01-29-2025 Mean corpuscular hemoglobin concentration (MCHC) determination 37.4 g/dL High 32-36 [facility] Mean platelet volume determi nationOrdered By: Wellington Le on 01-29-2025 Mean platelet volume determination 10.0 fl 6.2-12.0 [facility] Monocyte percentageOrdered B y: Wellington Lay on 01-29-2025 Monocytes/100 WBC (Bld) 10.1 % High 0-10 [facility] Monocyte percentage 10.1 % High 0-10 [facility] Neutrophil percentageOrdered By: Wellington Lay on 01-29-2025 Neutrophils/100 WBC (Bld) 74.1 % High 47-70 [facility] Neutrophil percentage 74.1 % High 47-70 [facility] Nucleated red blood cell per centageOrdered By: Wellington Lay on 01-29-2025 Nucleated red blood cell percentage 0 % 0-5 [facility] Platelet countOrdered By: Kvng Lay on 01-29-2025 Platelets (Bld) [#/Vol] 353 10*3/uL 150-450 [facility] Platelet count 353 K/mm3 150-450 [facility] Potassium (Unsp spec) [Mass/ Vol]Ordered By: Wellington Lay on 01-29-2025 Potassium measurement (mass/volume) 4.2 mmol/L 3.3-5.1 [facility] Potassium measurement (mass/ volume)Ordered By: Wellington Lay on 01-29-2025 Potassium (Unsp spec) [Mass/Vol] 4.2 mmol/L 3.3-5.1 [facility] RBC Auto (Bld) [#/Vol]Ordere d By: Wellington Lay on 01-29-2025 RBC (Bld) [#/Vol] 3.15 10*6/uL Low 4.6-6.2 [facility] Automated blood erythrocyte count 3.15 M/mm3 Low 4.6-6.2 [facility] Serum creatinine measurement (mass/volume)Ordered By: Wellington Lay on 01-29-2025 Creatinine [Mass/Vol] 2.59 mg/dL High 0.70-1.20 [facility] Serum glucose measurement (m ass/volume)Ordered By: Wellington Lay on 01-29-2025 Glucose [Mass/Vol] 74 mg/dL 70-99 [facility] Serum or plasma calcium harley urement (mass/volume)Ordered By: Wellington Lay on 01-29-2025 Calcium [Mass/Vol] 9.7 mg/dL 7.6-11.0 [facility] Serum or plasma urea nitroge n measurement (mass/volume)Ordered By: Wellington Lay on 01-29-2025 Urea nitrogen [Mass/Vol] 56 mg/dL High 01-23 [facility] Sodium levelOrdered By: Wellington Lay on 01-29-2025 Sodium [Moles/Vol] 137 mmol/L 133-145 [facility] Sodium level 137 mmol/L 133-145 [facility] Troponin T.cardiac High sens itivity method [Mass/Vol]Ordered By: Wellington Lay on 01-29-2025 Troponin T.cardiac [Mass/volume] in Serum or Plasma by High sensitivity method 37 ng/L High <22 [facility] Troponin T.cardiac [Mass/volume] in Serum or Plasma by High sensitivity method 39 ng/L High <22 [facility] Troponin T.cardiac [Mass/volume] in Serum or Plasma by High sensitivity method 46 ng/L High <22 [facility] Troponin T.cardiac [Mass/vol ume] in Serum or Plasma by High sensitivity methodOrdered By: Wellington Lay on 01-29-2025 Troponin T.cardiac High sensitivity method [Mass/Vol] 37 ng/L High <22 [facility] Troponin T.cardiac High sensitivity method [Mass/Vol] 39 ng/L High <22 [facility] Troponin T.cardiac High sensitivity method [Mass/Vol] 46 ng/L High <22 [facility] Urea nitrogen [Mass/Vol]Orde red By: Wellington Lay on 01-29-2025 Serum or plasma urea nitrogen measurement (mass/volume) 56 mg/dL High 01-23 [facility] White blood cell (WBC) count Ordered By: Wellington Lay on 01-29-2025 WBC (Bld) [#/Vol] 8.6 10*3/uL 4.4-11.0 [facility] White blood cell (WBC) count 8.6 K/mm3 4.4-11.0 [facility] PVR ANK PRESS SHANNON VAS LABon 01-27-2025 PVR ANK PRESS SHANNON VAS LAB Non-Invasive Vascular Laboratory [facility] Lower Extremity Arterial Physiology Study Bilateral/Complete Date of service/time: 01/27/2025 12:50:35 PM Name: MR. DESIREE AMES Date of : 1935 Age: 89 years Gender: M Clinical Indication Aortobiiliac graft, right femoral endarterectomy 08/05/2018, left iliofemoral endarterectomy 11/12/2023. TECHNIQUE -------- An arterial physiological examination was performed, including measurement of blood pressures using continuous wave Doppler and recording of plethysmographic with or without Doppler waveforms at the below-mentioned limb segments. FINDINGS -------- RIGHT SIDE AT REST Right Doppler Waveforms Dorsalis pedis: Monophasic. Post tibial: Monophasic. Right Pressures Brachial: 157 mmHg Ankle dorsalis pedis: 96 mmHg MARILEE: 0.61 Ankle posterior tibial: 131 mmHg MARILEE: 0.83 Partially non-compressible arteries. Digit: 75 mmHg Right PVR Waveforms Ankle: Moderately dampened. Digit: Moderately dampened. LEFT SIDE AT REST Left Doppler Waveforms Dorsalis pedis: Monophasic. Post tibial: Monophasic. Left Pressures Brachial: 154 mmHg Ankle dorsalis pedis: 116 mmHg MARILEE: 0.74 Ankle posterior tibial: 131 mmHg MARILEE: 0.83 Partially non-compressible arteries. Digit: 78 mmHg Left PVR Waveforms Ankle: Moderately dampened. Digit: Moderately dampened. IMPRESSION Compared to prior study of 06/30/2024, Likely non-compressible artereies, Right TBI was .52; left was .61 on previous exam. RIGHT SIDE Resting right ankle brachial index: 0.83 Partially non-compressible arteries, MARILEE not accurate. Right toe brachial index: 0.48 Non-compressible vessels, results called by PVR tracings. Abnormal toe brachial index at rest is evidence of peripheral artery disease. Right ankle: Moderate disease at rest. LEFT SIDE Resting left ankle brachial index: 0.83 Partially non-compressible arteries, MARILEE not accurate. Left toe brachial index: 0.50 Non-compressible vessels, results called by PVR tracings. Abnormal toe brachial index at rest is evidence of peripheral artery disease. Left ankle: Moderate disease at rest. Technologist: Marilyn Boggs BA, RVT Ordering physician: DARRYL MALLORY Interpreting physician: Paramjit Lakhani MD, RPVI Final CC sarvaMAIL Medical Image : [id number] ISUID See Link below for Image Normal [facility] Internal Medicine Office Vis iton 01-05-2025 Internal Medicine Office Visit Normal [facility] Pulmonary Visit Reporton Pulmonary Visit Report Normal [facility] Anion gap [Moles/Vol]Ordered By: Riaz Garrison on 12-28-2024 Anion gap in Serum or Plasma 13 02-18 [facility] Anion gap in Serum or Plasma Ordered By: Riaz Garrison on 12-28-2024 Anion gap [Moles/Vol] 13 mmol/L 02-18 [facility] BUN/creatinine ratioOrdered By: Riaz Garrison on 12-28-2024 Urea nitrogen/Creatinine [Mass ratio] 17.2 mg/mg 07-26 [facility] BUN/creatinine ratio 17.2 RATIO 07-26 [facility] Basic Metabolic Profile (BMP )on 12-28-2024 BUN/CRE 17.2 RATIO Normal 07-26 [facility] Comment on above: Performed By: #### L 500.2500 ####[facility] [address] [place], [address] Calcium [Mass/Vol] 9.0 mg/dL Normal 7.6-11.0 [facility] Comment on above: Performed By: #### L 500.2500 ####[facility] [address] [place], [address] Chloride [Moles/Vol] 96 mmol/L Low 98-108 [facility] Comment on above: Performed By: #### L 500.2500 ####[facility] [address] [place], [address] CO2 [Moles/Vol] 26.0 mmol/L Normal 21.0-32.0 [facility] Comment on above: Performed By: #### L 500.2500 ####[facility] [address] [place], [address] Creatinine [Mass/Vol] 2.04 mg/dL High 0.70-1.20 [facility] Comment on above: Performed By: #### L 500.2500 ####[facility] [address] [place], [address] GAP 13 Normal 5-15 [facility] Comment on above: Performed By: #### L 500.2500 ####[facility] [address] [place], [address] GFR/1.73 sq M.predicted among non-blacks MDRD (S/P/Bld) [Vol rate/Area] 31 mL/min/{1.73_m2} Low >60 [facility] Comment on above: Result Comment: mL/m in/1.73m2 CKD-EPI Creatinine Equation (2020) Performed By: #### L 500.2500 ####[facility] [address] [place], [address] Glucose [Mass/Vol] 148 mg/dL High 70-99 [facility] Comment on above: Performed By: #### L 500.2500 ####[facility] [address] [place], [address] Potassium [Moles/Vol] 3.8 mmol/L Normal 3.3-5.1 [facility] Comment on above: Performed By: #### L 500.2500 ####[facility] [address] [place], [place], [address] Sodium [Moles/Vol] 135 mmol/L Normal 133-145 [facility] Comment on above: Performed By: #### L 500.2500 ####[facility] [address] [place], [place], [address] Urea nitrogen [Mass/Vol] 35 mg/dL High 4-19 [facility] Comment on above: Performed By: #### L 500.2500 ####[facility] [address] [place], [place], [id number]) Calcium [Mass/Vol]Ordered By : Riaz Garrison on 12-28-2024 Serum or plasma calcium measurement (mass/volume) 9.0 mg/dL 7.6-11.0 [facility] Carbon dioxide, total [Moles /volume] in Central venous bloodOrdered By: Riaz Garrison on 12-28-2024 CO2 [Moles/Vol] 26.0 mmol/L 21.0-32.0 [facility] Carbon dioxide, total [Moles/volume] in Central venous blood 26.0 mmol/L 21.0-32.0 [facility] Chloride assayOrdered By: Bhargav Garrison on 12-28-2024 Chloride [Moles/Vol] 96 mmol/L Low 98-108 [facility] Chloride assay 96 mmol/L Low 98-108 [facility] Creatinine [Mass/Vol]Ordered By: Riaz Garrison on 12-28-2024 Serum creatinine measurement (mass/volume) 2.04 mg/dL High 0.70-1.20 [facility] GFR/1.73 sq M.predicted karly g non-blacks MDRD (S/P/Bld) [Vol rate/Area]Ordered By: Riaz Garrison on 12-28-2024 Glomerular filtration rate (GFR) estimation/1.73 sq m using serum, plasma, or whole b 31 Low >60 [facility] Glomerular filtration rate ( GFR) estimation/1.73 sq m using serum, plasma, or whole bOrdered By: Riaz Garrison on 12-28-2024 GFR/1.73 sq M.predicted among non-blacks MDRD (S/P/Bld) [Vol rate/Area] 31 mL/min/{1.73_m2} Low >60 [facility] Glucose [Mass/Vol]Ordered By : Riaz Garrison on 12-28-2024 Serum glucose measurement (mass/volume) 148 mg/dL High 70-99 [facility] Potassium (Unsp spec) [Mass/ Vol]Ordered By: Riaz Garrison on 12-28-2024 Potassium measurement (mass/volume) 3.8 mmol/L 3.3-5.1 [facility] Potassium measurement (mass/ volume)Ordered By: Riaz Garrison on 12-28-2024 Potassium (Unsp spec) [Mass/Vol] 3.8 mmol/L 3.3-5.1 [facility] Serum creatinine measurement (mass/volume)Ordered By: Riaz Garrison on 12-28-2024 Creatinine [Mass/Vol] 2.04 mg/dL High 0.70-1.20 [facility] Serum glucose measurement (m ass/volume)Ordered By: Riaz Garrison on 12-28-2024 Glucose [Mass/Vol] 148 mg/dL High 70-99 [facility] Serum or plasma calcium harley urement (mass/volume)Ordered By: Riaz Garrison on 12-28-2024 Calcium [Mass/Vol] 9.0 mg/dL 7.6-11.0 [facility] Serum or plasma urea nitroge n measurement (mass/volume)Ordered By: Riaz Garrison on 12-28-2024 Urea nitrogen [Mass/Vol] 35 mg/dL High 01-23 [facility] Sodium levelOrdered By: Mina Garrison on 12-28-2024 Sodium [Moles/Vol] 135 mmol/L 133-145 [facility] Sodium level 135 mmol/L 133-145 [facility] Urea nitrogen [Mass/Vol]Orde red By: Riaz Garrison on 12-28-2024 Serum or plasma urea nitrogen measurement (mass/volume) 35 mg/dL High 01-23 [facility] Internal Medicine Office Vis itolena 12-27-2024 [facility]WS ) DESIREE AMSE ([id number]) 1935 M Date Time Provider Department 12/22/24 2:00 PM VIPUL RICHARD PODIWS During your visit today, we recorded the following information about you: Lashanda Murillo, RN 12/22/2024 2:20 PM Signed Patient presents with: Left Foot - Established Patient, Follow Up, Diabetic Foot Care Right Foot - Established Patient, Follow Up, Diabetic Foot Care Patient presents for follow up diabetic foot/nail care. LYNDSEY 10/16/24 Vipul Richard 12/22/2024 2:07 PM Signed Diabetes Foot Care Instructions When you have [...] (or decreased sensation in your feet) a instructor dramatic arts should always cut your toenails. Be Careful [...] Go to your health care provider or instructor dramatic arts to treat these conditions. Vipul Richard 12/22/2024 2:20 PM Signed Last saw pcp: not in chart Subjective: Patient presents to clinic c/o painful toenails. They state that the nails are especially painful with shoe gear and pressure. Patient admits to being diabetic. No other pedal complaints at this time. Patient states no change in medications or medical history since last visit. Objective: Patient presents to clinic ambulating in [facility] Vasc: DP and PT pulses are nonpalpable bilateral. CFT is less than 5 seconds (more content not included)... Normal [facility] Anion gap [Moles/Vol]Ordered By: Inocencio Perkins on 12-17-2024 Anion gap in Serum or Plasma 14 - [facility] Anion gap in Serum or Plasma Ordered By: Inocencio Perkins on 12-17-2024 Anion gap [Moles/Vol] 14 mmol/L 02-18 [facility] BUN/creatinine ratioOrdered By: Inocencio Perkins on 12-17-2024 Urea nitrogen/Creatinine [Mass ratio] 28.5 mg/mg High 10- [facility] BUN/creatinine ratio 28.5 RATIO High 10-20 [facility] Basic Metabolic Profile (BMP )on 12-17-2024 BUN/CRE 28.5 RATIO High 10-20 [facility] Comment on above: Performed By: #### L 500.2500 ####[facility] [address] [place], [address] Calcium [Mass/Vol] 9.3 mg/dL Normal 7.6-11.0 [facility] Comment on above: Performed By: #### L 500.2500 ####[facility] [address] [place], [address] Chloride [Moles/Vol] 94 mmol/L Low 98-108 [facility] Comment on above: Performed By: #### L 500.2500 ####[facility] [address] [place], [address] CO2 [Moles/Vol] 29.5 mmol/L Normal 21.0-32.0 [facility] Comment on above: Performed By: #### L 500.2500 ####[facility] [address] [place], [address] Creatinine [Mass/Vol] 1.76 mg/dL High 0.70-1.20 [facility] Comment on above: Performed By: #### L 500.2500 ####[facility] [address] [place], [address] ECRCL 31.57 ml/min Low 50-250 [facility] Comment on above: Performed By: #### L 500.2500 ####[facility] [address] [place], [address] GAP 14 Normal 5-15 [facility] Comment on above: Performed By: #### L 500.2500 ####[facility] [address] [place], [address] GFR/1.73 sq M.predicted among non-blacks MDRD (S/P/Bld) [Vol rate/Area] 37 mL/min/{1.73_m2} Low >60 [facility] Comment on above: Result Comment: mL/m in/1.73m2 CKD-EPI Creatinine Equation (2020) Performed By: #### L 500.2500 ####[facility] [address] [place], [address] Glucose [Mass/Vol] 167 mg/dL High 70-99 [facility] Comment on above: Performed By: #### L 500.2500 ####[facility] [address] [place], [address] Potassium [Moles/Vol] 3.9 mmol/L Normal 3.3-5.1 [facility] Comment on above: Performed By: #### L 500.2500 ####[facility] [address] [place], [address] Sodium [Moles/Vol] 137 mmol/L Normal 133-145 [facility] Comment on above: Performed By: #### L 500.2500 ####[facility] [address] [place], [address] Urea nitrogen [Mass/Vol] 50 mg/dL High 4-19 [facility] Comment on above: Performed By: #### L 500.2500 ####[facility] [address] [place], [address] Bedside Glucoseon 12-17-2024 FINGERSTICK GLU 151 mg/dL High 74-106 [facility] Comment on above: Result Comment: ERIKA GEMENT OF PATIENT CARE PER NURSING PROTOCOL Performed By: #### L 501.080 ####[facility] [address] [place], [address] FINGERSTICK GLU 181 mg/dL High 74-106 [facility] Comment on above: Result Comment: ERIKA GEMENT OF PATIENT CARE PER NURSING PROTOCOL Performed By: #### L 501.080 ####[facility] [address] [place], [address] Calcium [Mass/Vol]Ordered By : Inocencio Perkins on 12-17-2024 Serum or plasma calcium measurement (mass/volume) 9.3 mg/dL 7.6-11.0 [facility] Carbon dioxide, total [Moles /volume] in Central venous bloodOrdered By: Inocencio Perkins on 12-17-2024 CO2 [Moles/Vol] 29.5 mmol/L 21.0-32.0 [facility] Carbon dioxide, total [Moles/volume] in Central venous blood 29.5 mmol/L 21.0-32.0 [facility] Chloride assayOrdered By: Sukhjinder Perkins on 12-17-2024 Chloride [Moles/Vol] 94 mmol/L Low 98-108 [facility] Chloride assay 94 mmol/L Low 98-108 [facility] Creatinine [Mass/Vol]Ordered By: Inocencio Perkins on 12-17-2024 Serum creatinine measurement (mass/volume) 1.76 mg/dL High 0.70-1.20 [facility] Discharge Instructionon 12-05 Discharge Instruction Normal [facility] Estimation of creatinine ruben aranceOrdered By: Inocencio Perkins on 12-17-2024 Estimation of creatinine clearance 31.57 ml/min Low 50-250 [facility] GFR/1.73 sq M.predicted karly g non-blacks MDRD (S/P/Bld) [Vol rate/Area]Ordered By: Inocencio Perkins on 12-17-2024 Glomerular filtration rate (GFR) estimation/1.73 sq m using serum, plasma, or whole b 37 Low >60 [facility] Glomerular filtration rate ( GFR) estimation/1.73 sq m using serum, plasma, or whole bOrdered By: Inocencio Perkins on 12-17-2024 GFR/1.73 sq M.predicted among non-blacks MDRD (S/P/Bld) [Vol rate/Area] 37 mL/min/{1.73_m2} Low >60 [facility] Glucose [Mass/Vol]Ordered By : Inocencio Perkins on 12-17-2024 Serum glucose measurement (mass/volume) 167 mg/dL High 70-99 [facility] Glucose measurement at bedsi deOrdered By: Inocencio Perkins on 12-17-2024 Glucose [Mass/Vol] 151 mg/dL High 74-106 [facility] Glucose measurement at bedside 151 mg/dL High 74-106 [facility] Potassium (Unsp spec) [Mass/ Vol]Ordered By: Inocencio Perkins on 12-17-2024 Potassium measurement (mass/volume) 3.9 mmol/L 3.3-5.1 [facility] Potassium measurement (mass/ volume)Ordered By: Inocencio Perkins on 12-17-2024 Potassium (Unsp spec) [Mass/Vol] 3.9 mmol/L 3.3-5.1 [facility] Serum creatinine measurement (mass/volume)Ordered By: Inocencio Perkins on 12-17-2024 Creatinine [Mass/Vol] 1.76 mg/dL High 0.70-1.20 [facility] Serum glucose measurement (m ass/volume)Ordered By: Inocencio Perkins on 12-17-2024 Glucose [Mass/Vol] 167 mg/dL High 70-99 [facility] Serum or plasma calcium harley urement (mass/volume)Ordered By: Inocencio Perkins on 12-17-2024 Calcium [Mass/Vol] 9.3 mg/dL 7.6-11.0 [facility] Serum or plasma urea nitroge n measurement (mass/volume)Ordered By: Inocencio Perkins on 12-17-2024 Urea nitrogen [Mass/Vol] 50 mg/dL High 4-19 [facility] Sodium levelOrdered By: Inocencio Perkins on 12-17-2024 Sodium [Moles/Vol] 137 mmol/L 133-145 [facility] Sodium level 137 mmol/L 133-145 [facility] Urea nitrogen [Mass/Vol]Orde red By: Inocencio Perkins on 12-17-2024 Serum or plasma urea nitrogen measurement (mass/volume) 50 mg/dL High -19 [facility] Bedside Glucoseon 12-16-2024 FINGERSTICK GLU 157 mg/dL High 74-106 [facility] Comment on above: Result Comment: ERIKA GEMENT OF PATIENT CARE PER NURSING PROTOCOL Performed By: #### L 501.080 ####[facility] [address] [facility] [phone] FINGERSTICK GLU 140 mg/dL High 74-106 [facility] Comment on above: Result Comment: ERIKA GEMENT OF PATIENT CARE PER NURSING PROTOCOL Performed By: #### L 501.080 ####[facility] [address] [place], [place], [phone] FINGERSTICK GLU 200 mg/dL High 74-106 [facility] Comment on above: Result Comment: ERIKA GEMENT OF PATIENT CARE PER NURSING PROTOCOL Performed By: #### L 501.080 ####[facility] [address] [place], [address] FINGERSTICK GLU 229 mg/dL High 74-106 [facility] Comment on above: Result Comment: ERIKA GEMENT OF PATIENT CARE PER NURSING PROTOCOL Performed By: #### L 501.080 ####[facility] [address] [place], [address] Bedside Glucoseon 12-15-2024 FINGERSTICK GLU 258 mg/dL High 74-106 [facility] Comment on above: Result Comment: ERIKA GEMENT OF PATIENT CARE PER NURSING PROTOCOL Performed By: #### L 501.080 ####[facility] [address] [place], [address] FINGERSTICK GLU 119 mg/dL High [address] [place] [address] Comment on above: Result Comment: ERIKA GEMENT OF PATIENT CARE PER NURSING PROTOCOL Performed By: #### L 501.080 ####[facility] [address] [place], [address] FINGERSTICK GLU 186 mg/dL High [facility]106 [facility] Comment on above: Result Comment: ERIKA GEMENT OF PATIENT CARE PER NURSING PROTOCOL Performed By: #### L 501.080 ####[facility] [address] [place], [address] FINGERSTICK GLU 262 mg/dL High -106 [facility] Comment on above: Result Comment: ERIKA GEMENT OF PATIENT CARE PER NURSING PROTOCOL Performed By: #### L 501.080 ####[facility] [address] [place], [address] FINGERSTICK GLU 232 mg/dL High [address] [place] [address] Comment on above: Result Comment: ERIKA GEMENT OF PATIENT CARE PER NURSING PROTOCOL Performed By: #### L 501.080 ####[facility] [address] [place], [address] 12 Lead EKGon 12-14-2024 12 Lead EKG Normal [facility] Absolute lymphocyte countOrd ered By: Dalton Del Angel on 12-14-2024 Lymphocytes Auto (Unsp spec) [#/Vol] 1.06 10*3/uL 0.83-4.51 [facility] Absolute neutrophil countOrd ered By: Dalton Del Angel on 12-14-2024 Absolute neutrophil count 4.4 X10^3/uL 2.0-7.7 [facility] Anion gap [Moles/Vol]Ordered By: Daltonsierra Del Angel on 12-14-2024 Anion gap in Serum or Plasma 16 High 5-15 [facility] Automated lymphocyte count a s percentage of total leukocytesOrdered By: Dalton Del Angel on 12-14-2024 Lymphocytes/100 WBC Auto (Unsp spec) 17.9 % Low 19-41 [facility] BUN/creatinine ratioOrdered By: Dalton Del Angel on 12-14-2024 BUN/creatinine ratio 21.6 RATIO High 10-20 [facility] Base excess Calc (BldV) [Mol es/Vol]Ordered By: Daltonsierra Del Angel on 12-14-2024 Venous blood base excess measurement 10 mmol/L High -1.0-3.5 [facility] Basic Metabolic Profile (BMP )on 12-14-2024 BUN/CRE 21.6 RATIO High 10-20 [facility] Comment on above: Performed By: #### L 100.0100, L500.2500 ####[facility] [address] [facility] [place], [address] Calcium [Mass/Vol] 8.7 mg/dL Normal 7.6-11.0 [facility] Comment on above: Performed By: #### L 100.0100, L500.2500 ####[facility] [address] [place], [address] Chloride [Moles/Vol] 91 mmol/L Low 98-108 [facility] Comment on above: Performed By: #### L 100.0100, L500.2500 ####[facility] [address] [place], [address] CO2 [Moles/Vol] 30.6 mmol/L Normal 21.0-32.0 [facility] Comment on above: Performed By: #### L 100.0100, L500.2500 ####[facility] [address] [place], [address] Creatinine [Mass/Vol] 2.22 mg/dL High 0.70-1.20 [facility] Comment on above: Performed By: #### L 100.0100, L500.2500 ####[facility] [address] [place], [address] ECRCL 25.77 ml/min Low 50-250 [facility] Comment on above: Performed By: #### L 100.0100, L500.2500 ####[facility] [address] [place], [address] GAP 16 High 5-15 [facility] Comment on above: Performed By: #### L 100.0100, L500.2500 ####[facility] [address] [place], [address] GFR/1.73 sq M.predicted among non-blacks MDRD (S/P/Bld) [Vol rate/Area] 28 mL/min/{1.73_m2} Low >60 [facility] Comment on above: Result Comment: mL/m in/1.73m2 CKD-EPI Creatinine Equation (2020) Performed By: #### L 100.0100, L500.2500 ####[facility] [address] [place], [address] Glucose [Mass/Vol] 140 mg/dL High 70-99 [facility] Comment on above: Performed By: #### L 100.0100, L500.2500 ####[facility] [address] [place], [address] Potassium [Moles/Vol] 3.3 mmol/L Normal 3.3-5.1 [facility] Comment on above: Performed By: #### L 100.0100, L500.2500 ####[facility] [address] [place], [address] Sodium [Moles/Vol] 137 mmol/L Normal 133-145 [facility] Comment on above: Performed By: #### L 100.0100, L500.2500 ####[facility] [address] [place], [address] Urea nitrogen [Mass/Vol] 48 mg/dL High 4-19 [facility] Comment on above: Performed By: #### L 100.0100, L500.2500 ####[facility] [address] [place], [address] Basophil percentageOrdered B y: Dalton Del Angel on 12-14-2024 Basophils/100 WBC (Bld) 0.2 % 0-1 [facility] Basophil percentage 0.2 % 0-1 [facility] Bedside Glucoseon 12-14-2024 FINGERSTICK GLU 266 mg/dL High 74-106 [facility] Comment on above: Result Comment: ERIKA GEMENT OF PATIENT CARE PER NURSING PROTOCOL Performed By: #### L 501.080 ####[facility] [address] [place], [address] FINGERSTICK GLU 272 mg/dL High 74-106 [facility] Comment on above: Result Comment: ERIKA GEMENT OF PATIENT CARE PER NURSING PROTOCOL Performed By: #### L 501.080 ####[facility] [address] [place], [address] FINGERSTICK GLU 170 mg/dL High 74-106 [facility] Comment on above: Result Comment: ERIKA GEMENT OF PATIENT CARE PER NURSING PROTOCOL Performed By: #### L 501.080 ####[facility] [address] [place], [address] CBC W/Diff, Automatedon 03-1 0-2025 Absolute Lymph 1.06 X10 3/uL Normal 0.83-4.51 [facility] Comment on above: Performed By: #### L 100.0100, L500.2500 ####[facility] [address] [place], [address] Absolute Neut 4.4 X10 3/uL Normal 2.0-7.7 [facility] Comment on above: Performed By: #### L 100.0100, L500.2500 ####[facility] [address] [place], [address] Basophils/100 WBC (Bld) 0.2 % Normal 0-1 [facility] Comment on above: Performed By: #### L 100.0100, L500.2500 ####[facility] [address] [place], [address] Eosinophils/100 WBC (Bld) 0.3 % Normal 0-5 [facility] Comment on above: Performed By: #### L 100.0100, L500.2500 ####[facility] [address] [place], [address] Erythrocyte distribution width (RBC) [Ratio] 13.8 % Normal 11.6-14.6 [facility] Comment on above: Performed By: #### L 100.0100, L500.2500 ####[facility] [address] [place], [address] Hematocrit (Bld) [Volume fraction] 31.5 % Low 40-54 [facility] Comment on above: Performed By: #### L 100.0100, L500.2500 ####[facility] [address] [place], [address] Hemoglobin (Bld) [Mass/Vol] 11.2 g/dL Low 13.0-16.5 [facility] Comment on above: Performed By: #### L 100.0100, L500.2500 ####[facility] [address] [place], [address] IG% 0.700 Normal 0.0-0.9 [facility] Comment on above: Result Comment: IG% - Immature Granulocytes (promyelocytes, myelocytes andmetamyelocytes) > 1% indicates that a LEFT SHIFT is Present. Performed By: #### L 100.0100, L500.2500 ####[facility] [address] [place], [address] Lymphocytes/100 WBC (Bld) 17.9 % Low 19-41 [facility] Comment on above: Performed By: #### L 100.0100, L500.2500 ####[facility] [address] [place], [address] MCH (RBC) [Entitic mass] 34.9 pg High 27.0-32.0 [facility] Comment on above: Performed By: #### L 100.0100, L500.2500 ####[facility] [address] [place], [address] MCHC (RBC) [Mass/Vol] 35.6 g/dL Normal 32-36 [facility] Comment on above: Performed By: #### L 100.0100, L500.2500 ####[facility] [address] [place], [address] MCV (RBC) [Entitic vol] 98.1 fL High 80-94 [facility] Comment on above: Performed By: #### L 100.0100, L500.2500 ####[facility] [address] [place], [address] Monocytes/100 WBC (Bld) 6.6 % Normal 0-10 [facility] Comment on above: Performed By: #### L 100.0100, L500.2500 ####[facility] [address] [place], [address] Neutrophils/100 WBC (Bld) 74.3 % High 47-70 [facility] Comment on above: Performed By: #### L 100.0100, L500.2500 ####[facility] [address] [place], [address] Nucleated RBC (Bld) [#/Vol] 0 10*3/uL Normal 0-5 [facility] Comment on above: Performed By: #### L 100.0100, L500.2500 ####[facility] [address] [place], [address] Platelet mean volume (Bld) [Entitic vol] 10.5 fL Normal 6.2-12.0 [facility] Comment on above: Performed By: #### L 100.0100, L500.2500 ####[facility] [address] [place], [address] Platelets (Bld) [#/Vol] 189 10*3/uL Normal 150-450 [facility] Comment on above: Performed By: #### L 100.0100, L500.2500 ####[facility] [address] [place], [address] RBC (Bld) [#/Vol] 3.21 10*6/uL Low 4.6-6.2 [facility] Comment on above: Performed By: #### L 100.0100, L500.2500 ####[facility] [address] [place], [address] RDW SD 45.8 fl High 35.1-43.9 [facility] Comment on above: Performed By: #### L 100.0100, L500.2500 ####[facility] [address] [place], [address] WBC (Bld) [#/Vol] 5.9 10*3/uL Normal 4.4-11.0 [facility] Comment on above: Performed By: #### L 100.0100, L500.2500 ####[facility] [address] [place], [address] CO2 (BldV) [Moles/Vol]Ordere d By: Dalton Del Angel on 12-14-2024 CO2 [Moles/Vol] 35 mmol/L High 23-33 [facility] Venous blood total carbon dioxide measurement 35 mmol/L High 23-33 [facility] CO2 (BldV) [Partial pressure ]Ordered By: Dalton Del Angel on 12-14-2024 Venous blood partial pressure of carbon dioxide measurement 45.6 mmHg 41-51 [facility] Calcium [Mass/Vol]Ordered By : Dalton Del Angel on 12-14-2024 Serum or plasma calcium measurement (mass/volume) 8.7 mg/dL 7.6-11.0 [facility] Carbon dioxide, total [Moles /volume] in Central venous bloodOrdered By: Dalton Del Angel on 12-14-2024 Carbon dioxide, total [Moles/volume] in Central venous blood 30.6 mmol/L 21.0-32.0 [facility] Chest PA and Lateralon 12-14 Chest PA and Lateral Normal [facility] Chloride assayOrdered By: Sukhwinder Del Angel on 12-14-2024 Chloride assay 91 mmol/L Low 98-108 [facility] Creatinine [Mass/Vol]Ordered By: Dalton Del Angel on 12-14-2024 Serum creatinine measurement (mass/volume) 2.22 mg/dL High 0.70-1.20 [facility] Determination of fraction of inspired oxygenOrdered By: Dalton Del Angel on 12-14-2024 Determination of fraction of inspired oxygen 1.0 [facility] Emergency Department Summary on 12-14-2024 Emergency Department Summary Normal [facility] Eosinophil percentageOrdered By: Dalton Del Angel on 12-14-2024 Eosinophils/100 WBC (Bld) 0.3 % 0-5 [facility] Eosinophil percentage 0.3 % 0-5 [facility] Erythrocyte distribution wid th (RBC) [Ratio]Ordered By: Dalton Del Angel on 12-14-2024 Erythrocyte distribution width ratio 13.8 % 11.6-14.6 [facility] Erythrocyte distribution wid th ratioOrdered By: Dalton Del Angel on 12-14-2024 Erythrocyte distribution width (RBC) [Ratio] 13.8 % 11.6-14.6 [facility] Erythrocyte distribution wid th standard deviationOrdered By: Dalton Burks on 12-14-2024 Erythrocyte distribution width (RBC) [Ratio] 45.8 fl High 35.1-43.9 [facility] Erythrocyte distribution width standard deviation 45.8 fl High 35.1-43.9 [facility] Estimation of creatinine ruben aranceOrdered By: Dalton Del Angel on 12-14-2024 Estimation of creatinine clearance 25.77 ml/min Low 50-250 [facility] GFR/1.73 sq M.predicted karly g non-blacks MDRD (S/P/Bld) [Vol rate/Area]Ordered By: Dalton Del Angel on 12-14-2024 Glomerular filtration rate (GFR) estimation/1.73 sq m using serum, plasma, or whole b 28 Low >60 [facility] Glucose [Mass/Vol]Ordered By : Dalton Del Angel on 12-14-2024 Serum glucose measurement (mass/volume) 140 mg/dL High 70-99 [facility] Glucose measurement at bedsi deOrdered By: Dalton Del Angel on 12-14-2024 Glucose measurement at bedside 170 mg/dL High 74-106 [facility] H AND P Exam - Hospitaliston 12-14-2024 H&P Exam - Hospitalist Normal [facility] Hematocrit Auto (Bld) [Volum e fraction]Ordered By: Dalton Del Angel on 12-14-2024 Hematocrit (Bld) [Volume fraction] 31.5 % Low 40-54 [facility] Automated blood hematocrit (percentage) 31.5 % Low 40-54 [facility] Hemoglobin measurementOrdere d By: Dalton Del Angel on 12-14-2024 Hemoglobin (Bld) [Mass/Vol] 11.2 g/dL Low 13.0-16.5 [facility] Hemoglobin measurement 11.2 g/dL Low 13.0-16.5 [facility] Immature granulocytes/100 WB C Auto (Bld)Ordered By: Dalton Del Angel on 12-14-2024 Immature granulocytes/100 WBC (Bld) 0.700 % 0.0-0.9 [facility] Automated immature granulocyte percentage 0.700 % 0.0-0.9 [facility] Influenza virus A and B and SARS-CoV-2 (COVID-19) and Respiratory syncytial virus RNAOrdered By: Dalton Del Angel on 12-14-2024 SARS-CoV-2 (COVID-19) RNA GARRETT+probe Ql (Unsp spec) Influenzae A Abnormal [facility] Influenza virus A and B and SARS-CoV-2 (COVID-19) and Respiratory syncytial virus RNA Influenzae A Abnormal [facility] Lymphocytes Auto (Unsp spec) [#/Vol]Ordered By: Dalton Del Angel on 12-14-2024 Absolute lymphocyte count 1.06 X10^3/uL 0.83-4.51 [facility] Lymphocytes/100 WBC Auto (Un sp spec)Ordered By: Dalton Del Angel on 12-14-2024 Automated lymphocyte count as percentage of total leukocytes 17.9 % Low 19-41 [facility] M100.678on 12-14-2024 M100.678 Normal [facility] Comment on above: Performed By: #### M 100.678 ####[facility] [address] [place], [place], [id number] MCV (RBC) [Entitic vol]Order ed By: Dalton Del Angel on 12-14-2024 MCV (mean corpuscular volume) determination 98.1 fL High 80-94 [facility] MCV (mean corpuscular volume ) determinationOrdered By: Dalton Del Angel on 12-14-2024 MCV (RBC) [Entitic vol] 98.1 fL High 80-94 [facility] Mean corpuscular hemoglobin (MCH) determinationOrdered By: Dalton Del Angel on 12-14-2024 MCH (RBC) [Entitic mass] 34.9 pg High 27.0-32.0 [facility] Mean corpuscular hemoglobin (MCH) determination 34.9 pg High 27.0-32.0 [facility] Mean corpuscular hemoglobin concentration (MCHC) determinationOrdered By: Dalton Del Angel on 12-14-2024 Mean corpuscular hemoglobin concentration (MCHC) determination 35.6 g/dL 32-36 [facility] Mean platelet volume determi nationOrdered By: Dalton Del Angel on 12-14-2024 Mean platelet volume determination 10.5 fl 6.2-12.0 [facility] Monocyte percentageOrdered B y: Dalton Del Angel on 12-14-2024 Monocytes/100 WBC (Bld) 6.6 % 0-10 [facility] Monocyte percentage 6.6 % 0-10 [facility] Neutrophil percentageOrdered By: Dalton Del Angel on 12-14-2024 Neutrophils/100 WBC (Bld) 74.3 % High 47-70 [facility] Neutrophil percentage 74.3 % High 47-70 [facility] No Panel InformationOrdered By: Dalton Del Angel on 12-14-2024 YURY [facility] Not entered [facility] Cannula [facility] Nucleated red blood cell per centageOrdered By: Dalton Del Angel on 12-14-2024 Nucleated red blood cell percentage 0 % 0-5 [facility] Oxygen (BldV) [Partial press ure]Ordered By: Dalton Del Angel on 12-14-2024 Venous blood partial pressure of oxygen measurement 34 mmHg 25-40 [facility] Platelet countOrdered By: Sukhwinder Del Angel on 12-14-2024 Platelets (Bld) [#/Vol] 189 10*3/uL 150-450 [facility] Platelet count 189 K/mm3 150-450 [facility] Potassium (Unsp spec) [Mass/ Vol]Ordered By: Dalton Del Angel on 12-14-2024 Potassium measurement (mass/volume) 3.3 mmol/L 3.3-5.1 [facility] RBC Auto (Bld) [#/Vol]Ordere d By: Dalton Del Angel on 12-14-2024 RBC (Bld) [#/Vol] 3.21 10*6/uL Low 4.6-6.2 [facility] Automated blood erythrocyte count 3.21 M/mm3 Low 4.6-6.2 [facility] Sodium levelOrdered By: Bryon Del Angel on 12-14-2024 Sodium level 137 mmol/L 133-145 [facility] Urea nitrogen [Mass/Vol]Orde red By: Dalton Del Angel on 12-14-2024 Serum or plasma urea nitrogen measurement (mass/volume) 48 mg/dL High 4-19 [facility] Venous Blood Gason 5 Blood Gas Type YURY [facility] Comment on above: Performed By: #### L 9000.0810 ####[facility] [address] [place], [address] CO2 [Moles/Vol] 35 mmol/L High 23-33 [facility] Comment on above: Performed By: #### L 9000.0810 ####[facility] [address] [place], [address] FI02 1.0 Normal [facility] Comment on above: Performed By: #### L 9000.0810 ####[facility] [address] [place], [address] HCO3 (Bld) [Moles/Vol] 33 mmol/L High 22-26 [facility] Comment on above: Performed By: #### L 9000.0810 ####[facility] [address] [place], [address] O2 Delivery Dev Cannula Normal [facility] Comment on above: Performed By: #### L 9000.0810 ####[facility] [address] [place], [address] SITE Not entered Normal [facility] Comment on above: Performed By: #### L 9000.0810 ####[facility] [address] [place], [address] VBG BE 10 mmol/L High -1.0-3.5 [facility] Comment on above: Performed By: #### L 9000.0810 ####[facility] [address] [place], [address] VBG pCO2 45.6 mmHg Normal 41-51 [facility] Comment on above: Performed By: #### L 9000.0810 ####[facility] [address] [place], [address] VBG pH 7.47 High 7.32-7.42 [facility] Comment on above: Performed By: #### L 9000.0810 ####[facility] [address] [place], [address] VBG PO2 34 mmHg Normal 25-40 [facility] Comment on above: Performed By: #### L 9000.0810 ####[facility] [address] [place], [address] VBG SO2 69 Normal 50-70 [facility] Comment on above: Performed By: #### L 9000.0810 ####[facility] [address] [place], [address] Venous blood base excess jaelyn surementOrdered By: Dalton Del Angel on 12-14-2024 Base excess Calc (BldV) [Moles/Vol] 10 mmol/L High -1.0-3.5 [facility] Venous blood bicarbonate jaelyn surementOrdered By: Dalton Del Angel on 12-14-2024 HCO3 (Bld) [Moles/Vol] 33 mmol/L High 22-26 [facility] Venous blood bicarbonate measurement 33 mmol/L High 22-26 [facility] Venous blood oxygen saturati on measurementOrdered By: Dalton Del Angel on 12-14-2024 Venous blood oxygen saturation measurement 69 % 50-70 [facility] Venous blood pH measurementO rdered By: Dalton Del Angel on 12-14-2024 pH (BldV) 7.47 [pH] High 7.32-7.42 [facility] Venous blood partial pressur e of carbon dioxide measurementOrdered By: Dalton Del Angel on 12-14-2024 CO2 (BldV) [Partial pressure] 45.6 mm[Hg] 41-51 [facility] Venous blood partial pressur e of oxygen measurementOrdered By: Dalton Burks on 12-14-2024 Oxygen (BldV) [Partial pressure] 34 mm[Hg] 25-40 [facility] White blood cell (WBC) count Ordered By: Dalton Del Angel on 12-14-2024 WBC (Bld) [#/Vol] 5.9 10*3/uL 4.4-11.0 [facility] White blood cell (WBC) count 5.9 K/mm3 4.4-11.0 [facility] pH (BldV)Ordered By: Dalton Peres on 12-14-2024 Venous blood pH measurement 7.47 High 7.32-7.42 [facility] Cardiology Visit Reporton Cardiology Visit Report Normal [facility] Basic Metabolic Profile (BMP )on 11-24-2024 BUN/CRE 17.9 RATIO Normal 10-20 [facility] Comment on above: Performed By: #### L 500.2500, L501.0900 ####[facility] [address] [place], [address] CA,Total 9.7 mg/dL Normal 8.5-10.1 [facility] Comment on above: Result Comment: Slig ht Lipemia, Result may be falsely increased. Performed By: #### L 500.2500, L501.0900 ####[facility] [address] [place], [address] Chloride [Moles/Vol] 99 mmol/L Normal 98-107 [facility] Comment on above: Performed By: #### L 500.2500, L501.0900 ####[facility] [address] [place], [address] CO2 [Moles/Vol] 29.0 mmol/L Normal 21.0-32.0 [facility] Comment on above: Result Comment: Slig ht Lipemia, Result may be falsely increased. Performed By: #### L 500.2500, L501.0900 ####[facility] [facility] [address] [place], [address] Creatinine [Mass/Vol] 2.12 mg/dL High 0.70-1.30 [facility] Comment on above: Result Comment: Slig ht Lipemia, Result may be falsely increased.The validity of the calculated GFR GFRAA in patients over70 years has not been determined. Clinical correlation isessential. Performed By: #### L 500.2500, L501.0900 ####[facility] [address] [place], [address] EST GFR - AA 38 mL/min Low >60 [facility] Comment on above: Result Comment: Afri can Bulgarian GFR Calc Performed By: #### L 500.2500, L501.0900 ####[facility] [address] [place], [address] GAP 9 Normal 5-15 [facility] Comment on above: Performed By: #### L 500.2500, L501.0900 ####[facility] [address] [place], [address] GFR/1.73 sq M.predicted among non-blacks MDRD (S/P/Bld) [Vol rate/Area] 32 mL/min/{1.73_m2} Low >60 [facility] Comment on above: Result Comment: Non- GFR Calc Performed By: #### L 500.2500, L501.0900 ####[facility] [address] [place], [address] Glucose [Mass/Vol] 118 mg/dL High 74-106 [facility] Comment on above: Result Comment: Slig ht Lipemia, Result may be falsely increased.Fasting Glucose result from 100 to 125 mg/dLsuggests IMPAIRED HOMEOSTASIS per A.D.A. criteria. Performed By: #### L 500.2500, L501.0900 ####[facility] [address] [place], [address] Potassium [Moles/Vol] 3.8 mmol/L Normal 3.5-5.1 [facility] Comment on above: Result Comment: Slig ht Lipemia, Result may be falsely increased. Performed By: #### L 500.2500, L501.0900 ####[facility] [address] [place], [address] Sodium [Moles/Vol] 137 mmol/L Normal 136-145 [facility] Comment on above: Performed By: #### L 500.2500, L501.0900 ####[facility] [address] [place], [address] Urea nitrogen [Mass/Vol] 38 mg/dL High 7-18 [facility] Comment on above: Performed By: #### L 500.2500, L501.0900 ####[facility] [address] [place], [address] Blood urea nitrogen (BUN)/cr eatinine ratioOrdered By: Miracle Pearce on 11-24-2024 Blood urea nitrogen (BUN)/creatinine ratio 17.9 RATIO 10-20 [facility] Calcium [Mass/Vol]Ordered By : Miracle Pearce on 11-24-2024 Serum or plasma calcium measurement (mass/volume) 9.7 mg/dL 8.5-10.1 [facility] Carbon dioxide measurementOr dered By: Miracle Pearce on 11-24-2024 CO2 [Moles/Vol] 29.0 mmol/L 21.0-32.0 [facility] Carbon dioxide measurement 29.0 mmol/L 21.0-32.0 [facility] Chloride measurementOrdered By: Miracle Pearce on 11-24-2024 Chloride [Moles/Vol] 99 mmol/L 98-107 [facility] Chloride measurement 99 mmol/L 98-107 [facility] Creatinine (U) [Mass/Vol]Ord ered By: Miracle Pearce on 11-24-2024 Urine creatinine measurement (mass/volume) 52.40 mg/dL NO RANGE EST. [facility] Creatinine [Mass/Vol]Ordered By: Miracle Pearce on 11-24-2024 Serum or plasma creatinine measurement (mass/volume) 2.12 mg/dL High 0.70-1.30 [facility] Estimated glomerular filtrat ion rate (GFR) AmericanOrdered By: Miracle Pearce on 11-24-2024 Estimated glomerular filtration rate (GFR) 38 mL/min Low >60 [facility] Glomerular filtration rate ( GFR) estimationOrdered By: Miracle Pearce on 11-24-2024 GFR/1.73 sq M.predicted among non-blacks MDRD (S/P/Bld) [Vol rate/Area] 32 mL/min/{1.73_m2} Low >60 [facility] Glomerular filtration rate (GFR) estimation 32 mL/min Low >60 [facility] Glucose measurementOrdered B y: Miracle Pearce on 11-24-2024 Glucose [Mass/Vol] 118 mg/dL High 74-106 [facility] Glucose measurement 118 mg/dL High 74-106 [facility] Potassium measurementOrdered By: Miracle Perace on 11-24-2024 Potassium [Moles/Vol] 3.8 mmol/L 3.5-5.1 [facility] Potassium measurement 3.8 mmol/L 3.5-5.1 [facility] Protein+Creatinine Ratio,Uri neon 11-24-2024 PROT:CRE RATIO 525 mg/g CRE High 0-200 [facility] Comment on above: Performed By: #### L 500.2500, L501.0900 ####[facility] [address] [place], [address] Protein (U) [Mass/Vol] 27.5 mg/dL High <11.9 [facility] Comment on above: Performed By: #### L 500.2500, L501.0900 ####[facility] [address] [place], [address] UR CREAT 52.40 mg/dL Normal NO RANGE EST. [facility] Comment on above: Performed By: #### L 500.2500, L501.0900 ####[facility] [address] [place], [address] Protein/Creatinine (U) [Mass ratio]Ordered By: Miracle Pearce on 11-24-2024 Urine protein/creatinine mass ratio 525 mg/g CRE High 0-200 [facility] Random urine protein measure mentOrdered By: Miracel Pearce on 11-24-2024 Protein (U) [Mass/Vol] 27.5 mg/dL High 0.0-11.8 [facility] Random urine protein measurement 27.5 mg/dL High 0.0-11.8 [facility] Serum anion gap measurementO rdered By: Miracle Pearce on 11-24-2024 Serum anion gap measurement 9 5-15 [facility] Serum or plasma calcium harley urement (mass/volume)Ordered By: Miracle Pearce on 11-24-2024 Calcium [Mass/Vol] 9.7 mg/dL 8.5-10.1 [facility] Serum or plasma creatinine m easurement (mass/volume)Ordered By: Miracle Pearce on 11-24-2024 Creatinine [Mass/Vol] 2.12 mg/dL High 0.70-1.30 [facility] Serum or plasma urea nitroge n measurement (mass/volume)Ordered By: Miracle Pearce on 11-24-2024 Urea nitrogen [Mass/Vol] 38 mg/dL High 04-23 [facility] Sodium levelOrdered By: London Pearce on 11-24-2024 Sodium [Moles/Vol] 137 mmol/L 136-145 [facility] Sodium level 137 mmol/L 136-145 [facility] Urea nitrogen [Mass/Vol]Orde red By: Miracle Pearce on 11-24-2024 Serum or plasma urea nitrogen measurement (mass/volume) 38 mg/dL High 04-23 [facility] Urine creatinine measurement (mass/volume)Ordered By: Miracle Pearce on 11-24-2024 Creatinine (U) [Mass/Vol] 52.40 mg/dL NO RANGE EST. [facility] Urine protein/creatinine mas s ratioOrdered By: Miracle Pearce on 11-24-2024 Protein/Creatinine (U) [Mass ratio] 525 mg/g CRE High 0-200 [facility] CNOVon 10-16-2024 CNOV Office Visit (PODIWS ) DESIREE AMES ([id number]) 1935 M Date Time Provider Department 10/16/24 1:40 PM VIPUL RICHARD PODIWS During your visit today, we recorded the following information about you: Lashanda Murillo, COLLEEN 10/16/2024 2:14 PM Signed AMB ROOMING INTAKE FLOWSHEET DATA Risk Screening Do you have concerns about personal safety or safety in the home?: No Pain Pain Level: 8 Pain Location: Toe (Right big toe) Duration Amount of Time: (few) Duration Units: Days Frequency: Continuous Intervention/Comfort measure: Relaxation, Reposition Patient presents with: Left Foot - Established Patient, Follow Up, Diabetic Foot Care Right Foot - Established Patient, Follow Up, Diabetic Foot Care Patient presents for 9 week follow up diabetic foot/nail care. LYNDSEY 08/14/24 Vipul Richard 10/16/2024 2:14 PM Signed Last saw pcp: not in chart Subjective: Patient presents to clinic c/o painful toenails. They state that the nails are especially painful with shoe gear and pressure. Patient states that nails right hallux are painful. Patient admits to being diabetic. No other pedal complaints at this time. Patient states no change in medications or medical history since last visit. Objective: Patient presents to clinic ambulating in eaker Vasc: DP and PT pulses are nonpalpable bilateral. CFT is less than 5 seconds bilateral. Skin temperature is warm to cool proximal to distal bilateral. There is moderate edema or varicosities noted. Non-Invasive Vascular Laboratory [facility] Lower Extremity Arterial Physiology Study Bilateral/Complete Date of service/time: 06/30/2024 11:03:38 AM Name: MR. DESIREE AMES Date of : 1935 Age: 89 years Gender: M Clinical Indication Aortobiiliac graft, right femoral endarterectomy 08/05/2018, left iliofemoral endarterectomy 11/12/2023. TECHNIQUE -------- An arterial physiological examination was performed, including measurement of blood pressures using continuous wave Doppler and recording of plethysmographic with or without Doppler waveforms at the below-mentioned limb segments. FINDINGS -------- RIGHT SIDE AT REST Right Doppler Waveforms Dorsalis pedis: Monophasic. Post tibial: Monophasic. Right Pressures Brachial: 125 mmHg Ankle dorsalis pedis: 87 mmHg MARILEE: 0.69 Ankle posterior tibial: 87 mmHg MARILEE: 0.69 Digit: 66 mmHg Right PVR Waveforms Ankle: Moderately dampened. Transmetatarsal: Moderately dampened. Digit: Moderately dampened. LEFT SIDE AT REST Left Doppler Waveforms Dorsalis pedis: Monophasic. Post tibial: Monophasic. Left Pressures Brachial: 126 mmHg Ankle dorsalis pedis: 78 mmHg MARILEE: 0.62 Ankle posterior tibial: 76 mmHg MARILEE: 0.60 Digit: 77 mmHg Left PVR Waveforms Ankle: Moderately dampened. Transmetatarsal: Moderately dampened. Digit: Moderately dampened. IMPRESSION Compared to prior study of 10/17/2023, Right ankle brachial index was 0.86 and left was 0.34. RIGHT SIDE Resting right ankle brachial index: 0.69 Right toe brachial index: 0.52 Abnormal ankle brachial index at rest diagnostic of peripheral artery disease. Abnormal toe brachial index at rest is evidence of peripheral artery disease. Right ankle: Moderate disease at rest. LEFT SIDE Resting left ankle brachial index: 0.62 Left toe brachial index: 0.61 Abnormal ankle brachial index at rest diagnostic of peripheral artery disease. Abnormal toe brachial index at rest is evidence of peripheral artery disease. Left ankle: Moderate disease at rest. Technologist: Scarlet Bray RVT, [facility] Ordering physician: RENE ZAPATA Interpreting physician: RANJEET Clements DO Neuro: Protective sensation is decreased to the foot and toes when tested with the 5.07 SWM bilateral. Vibratory sensation is absent at the hallux IPJ bilateral. The hallux is downgoing bilateral. Derm: Nails 1-5 b/l are painful, incurvated, discolored-yellow, thick, crumbly, dystrophic and with subungal debris. Skin is dry and hair growth is absent bilateral. There [...] mellitus (HCC) (I73.9) PAD (peripheral artery disease) ([facility]) Plan: Patient was seen and evaluated. Nails 1-5 bilateral were debrided in length and thickness. Discussed his (more content not included)... Normal [facility] Pulmonary Visit Reporton Pulmonary Visit Report Normal [facility] Thyroidon 08-31-2024 Thyroid Normal [facility] Basic Metabolic Profile (BMP )on 08-24-2024 BUN/CRE 18.9 RATIO Normal 10-20 [facility] Comment on above: Performed By: #### L 501.0900, L100.0500, L503.6030, L500.2500 ####[facility] [address] [place], [address] CA,Total 9.2 mg/dL Normal 8.5-10.1 [facility] Comment on above: Result Comment: Slig ht Lipemia, Result may be falsely increased. Performed By: #### L 501.0900, L100.0500, L503.6030, L500.2500 ####[facility] [address] [place], [address] Chloride [Moles/Vol] 102 mmol/L Normal 98-107 [facility] Comment on above: Performed By: #### L 501.0900, L100.0500, L503.6030, L500.2500 ####[facility] [address] [place], [address] CO2 [Moles/Vol] 27.0 mmol/L Normal 21.0-32.0 [facility] Comment on above: Result Comment: Slig ht Lipemia, Result may be falsely increased. Performed By: #### L 501.0900, L100.0500, L503.6030, L500.2500 ####[facility] [address] [place], [address] Creatinine [Mass/Vol] 2.06 mg/dL High 0.70-1.30 [facility] Comment on above: Result Comment: Slig ht Lipemia, Result may be falsely increased.The validity of the calculated GFR GFRAA in patients over70 years has not been determined. Clinical correlation isessential. Performed By: #### L 501.0900, L100.0500, L503.6030, L500.2500 ####[facility] [address] [place], [address] EST GFR - AA 40 mL/min Low >60 [facility] Comment on above: Result Comment: Afri can Bulgarian GFR Calc Performed By: #### L 501.0900, L100.0500, L503.6030, L500.2500 ####[facility] [address] [place], [address] GAP 9 Normal 5-15 [facility] Comment on above: Performed By: #### L 501.0900, L100.0500, L503.6030, L500.2500 ####[facility] [address] [place], [address] GFR/1.73 sq M.predicted among non-blacks MDRD (S/P/Bld) [Vol rate/Area] 33 mL/min/{1.73_m2} Low >60 [facility] Comment on above: Result Comment: Non- GFR Calc Performed By: #### L 501.0900, L100.0500, L503.6030, L500.2500 ####[facility] [address] [place], [address] Glucose [Mass/Vol] 105 mg/dL Normal 74-106 [facility] Comment on above: Result Comment: Slig ht Lipemia, Result may be falsely increased.Fasting Glucose result from 100 to 125 mg/dLsuggests IMPAIRED HOMEOSTASIS per A.D.A. criteria. Performed By: #### L 501.0900, L100.0500, L503.6030, L500.2500 ####[facility] [address] [place], [address] Potassium [Moles/Vol] 3.9 mmol/L Normal 3.5-5.1 [facility] Comment on above: Result Comment: Slig ht Lipemia, Result may be falsely increased. Performed By: #### L 501.0900, L100.0500, L503.6030, L500.2500 ####[facility] [address] [place], [address] Sodium [Moles/Vol] 138 mmol/L Normal 136-145 [facility] Comment on above: Performed By: #### L 501.0900, L100.0500, L503.6030, L500.2500 ####[facility] [address] [place], [address] Urea nitrogen [Mass/Vol] 39 mg/dL High - [facility] Comment on above: Result Comment: Slig ht Lipemia, Result may be falsely increased. Performed By: #### L 501.0900, L100.0500, L503.6030, L500.2500 ####[facility] [address] [place], [address] Blood urea nitrogen (BUN)/cr eatinine ratioOrdered By: Riaz Garrison on 08-24-2024 Blood urea nitrogen (BUN)/creatinine ratio 18.9 RATIO - [facility] CBC-Complete Blood Cnt No Di ffon 08-24-2024 Erythrocyte distribution width (RBC) [Ratio] 13.3 % Normal 11.6-14.6 [facility] Comment on above: Performed By: #### L 501.0900, L100.0500, L503.6030, L500.2500 ####[facility] [address] [place], [address] Hematocrit (Bld) [Volume fraction] 40.2 % Normal 40-54 [facility] Comment on above: Performed By: #### L 501.0900, L100.0500, L503.6030, L500.2500 ####[facility] [address] [place], [address] Hemoglobin (Bld) [Mass/Vol] 12.9 g/dL Low 13.0-16.5 [facility] Comment on above: Performed By: #### L 501.0900, L100.0500, L503.6030, L500.2500 ####[facility] [address] [place], [address] MCH (RBC) [Entitic mass] 29.9 pg Normal 27.0-32.0 [facility] Comment on above: Performed By: #### L 501.0900, L100.0500, L503.6030, L500.2500 ####[facility] [address] [place], [address] MCHC (RBC) [Mass/Vol] 32.1 g/dL Normal 32-36 [facility] Comment on above: Performed By: #### L 501.0900, L100.0500, L503.6030, L500.2500 ####[facility] [address] [place], [address] MCV (RBC) [Entitic vol] 93.3 fL Normal 80-94 [facility] Comment on above: Performed By: #### L 501.0900, L100.0500, L503.6030, L500.2500 ####[facility] [address] [place], [address] Platelet mean volume (Bld) [Entitic vol] 10.4 fL Normal 6.2-12.0 [facility] Comment on above: Performed By: #### L 501.0900, L100.0500, L503.6030, L500.2500 ####[facility] [address] [place], [address] Platelets (Bld) [#/Vol] 295 10*3/uL Normal 150-450 [facility] Comment on above: Performed By: #### L 501.0900, L100.0500, L503.6030, L500.2500 ####[facility] [address] [place], [address] RBC (Bld) [#/Vol] 4.31 10*6/uL Low 4.6-6.2 [facility] Comment on above: Performed By: #### L 501.0900, L100.0500, L503.6030, L500.2500 ####[facility] [address] [place], [address] RDW SD 45.7 fl High 35.1-43.9 [facility] Comment on above: Performed By: #### L 501.0900, L100.0500, L503.6030, L500.2500 ####[facility] [address] [place], [address] WBC (Bld) [#/Vol] 7.9 10*3/uL Normal 4.4-11.0 [facility] Comment on above: Performed By: #### L 501.0900, L100.0500, L503.6030, L500.2500 ####[facility] [address] [place], [address] Calcium [Mass/Vol]Ordered By : Riaz Garrison on 08-24-2024 Serum or plasma calcium measurement (mass/volume) 9.2 mg/dL 8.5-10.1 [facility] Carbon dioxide measurementOr dered By: Riaz Garrison on 08-24-2024 Carbon dioxide measurement 27.0 mmol/L 21.0-32.0 [facility] Chloride measurementOrdered By: Riaz Garrison on 08-24-2024 Chloride measurement 102 mmol/L 98-107 [facility] Creatinine (U) [Mass/Vol]Ord ered By: Riaz Garrison on 08-24-2024 Urine creatinine measurement (mass/volume) 79.10 mg/dL NO RANGE EST. [facility] Creatinine [Mass/Vol]Ordered By: Riaz Garrison on 08-24-2024 Serum or plasma creatinine measurement (mass/volume) 2.06 mg/dL High 0.70-1.30 [facility] Erythrocyte distribution wid th (RBC) [Entitic vol]Ordered By: Riaz Garrison on 08-24-2024 Erythrocyte distribution width standard deviation 45.7 fl High 35.1-43.9 [facility] Erythrocyte distribution wid th (RBC) [Ratio]Ordered By: Riaz Garrison on 08-24-2024 Erythrocyte distribution width ratio 13.3 % 11.6-14.6 [facility] Estimated glomerular filtrat ion rate (GFR) AmericanOrdered By: Riaz Garrison on 08-24-2024 Estimated glomerular filtration rate (GFR) 40 mL/min Low >60 [facility] Glomerular filtration rate ( GFR) estimationOrdered By: Riaz Garrison on 08-24-2024 Glomerular filtration rate (GFR) estimation 33 mL/min Low >60 [facility] Glucose measurementOrdered B y: Riaz Garrison on 08-24-2024 Glucose measurement 105 mg/dL 74-106 [facility] Hematocrit Auto (Bld) [Volum e fraction]Ordered By: Riaz Garrison on 08-24-2024 Automated blood hematocrit (percentage) 40.2 % 40-54 [facility] Hemoglobin measurementOrdere d By: Riaz Garrison on 08-24-2024 Hemoglobin measurement 12.9 g/dL Low 13.0-16.5 [facility] Iron (Unsp spec) [Mass/Mass] Ordered By: Riaz Garrison on 08-24-2024 Iron measurement (mass/mass) 71 ug/dL 65-175 [facility] Iron saturation [Mass fracti on]Ordered By: Riaz Garrison on 08-24-2024 Serum or plasma iron saturation measurement (mass fraction) 21.8 % 15.0-55.0 [facility] Iron+Iron Binding Capacityon 08-24-2024 Iron [Mass/Vol] 71 ug/dL Normal 65-175 [facility] Comment on above: Result Comment: Slig ht Lipemia, Result may be falsely increased. Performed By: #### L 501.0900, L100.0500, L503.0130, L500.2500 ####[facility] [address] [place], [place], [id number] IRON SATURATION 21.8 Normal 15.0-55.0 [facility] Comment on above: Performed By: #### L 501.0900, L100.0500, L503.6030, L500.2500 ####[facility] [address] [place], [address] TIBC 325 ug/dL Normal 250-450 [facility] Comment on above: Result Comment: Slig ht Lipemia, Result may be falsely increased. Performed By: #### L 501.0900, L100.0500, L503.6030, L500.2500 ####[facility] [address] [place], [address] MCV (RBC) [Entitic vol]Order ed By: Riaz Garrison on 08-24-2024 MCV (mean corpuscular volume) determination 93.3 fL 80-94 [facility] Mean corpuscular hemoglobin (MCH) determinationOrdered By: Riaz Garrison on 08-24-2024 Mean corpuscular hemoglobin (MCH) determination 29.9 pg 27.0-32.0 [facility] Mean corpuscular hemoglobin concentration (MCHC) determinationOrdered By: Riaz Garrison on 08-24-2024 Mean corpuscular hemoglobin concentration (MCHC) determination 32.1 g/dL 32-36 [facility] Mean platelet volume determi nationOrdered By: Riaz Garrison on 08-24-2024 Mean platelet volume determination 10.4 fl 6.2-12.0 [facility] No Panel Informationon 08-24 6.3 % 4.2-6.3 [facility] Platelet countOrdered By: Bhargav Garrison on 08-24-2024 Platelet count 295 K/mm3 150-450 [facility] Potassium measurementOrdered By: Riaz Garrison on 08-24-2024 Potassium measurement 3.9 mmol/L 3.5-5.1 [facility] Protein+Creatinine Ratio,Uri neon 08-24-2024 PROT:CRE RATIO 392 mg/g CRE High 0-200 [facility] Comment on above: Performed By: #### L 501.0900, L100.0500, L503.6030, L500.2500 ####[facility] [address] [place], [address] Protein (U) [Mass/Vol] 31.0 mg/dL High <11.9 [facility] Comment on above: Performed By: #### L 501.0900, L100.0500, L503.6030, L500.2500 ####[facility] [address] [place], [address] UR CREAT 79.10 mg/dL Normal NO RANGE EST. [facility] Comment on above: Performed By: #### L 501.0900, L100.0500, L503.6030, L500.2500 ####[facility] [address] [place], [address] Protein/Creatinine (U) [Mass ratio]Ordered By: Riaz Garrison on 08-24-2024 Urine protein/creatinine mass ratio 392 mg/g CRE High 0-200 [facility] RBC Auto (Bld) [#/Vol]Ordere d By: Riaz Garrison on 08-24-2024 Automated blood erythrocyte count 4.31 M/mm3 Low 4.6-6.2 [facility] Random urine protein measure mentOrdered By: Riaz Garrison on 08-24-2024 Random urine protein measurement 31.0 mg/dL High 0.0-11.8 [facility] Serum anion gap measurementO rdered By: Riaz Garrison on 08-24-2024 Serum anion gap measurement 9 5-15 [facility] Sodium levelOrdered By: Mina Garrison on 08-24-2024 Sodium level 138 mmol/L 136-145 [facility] TIBCOrdered By: Riaz motta on 08-24-2024 TIBC 325 ug/dL 250-450 [facility] Urea nitrogen [Mass/Vol]Orde red By: Riaz Garrison on 08-24-2024 Serum or plasma urea nitrogen measurement (mass/volume) 39 mg/dL High 7-18 [facility] White blood cell (WBC) count Ordered By: Riaz Garrison on 08-24-2024 White blood cell (WBC) count 7.9 K/mm3 4.4-11.0 [facility] Internal Medicine Office Vis iton 08-20-2024 Internal Medicine Office Visit Normal [facility] CNOVon 08-14-2024 CNOV Office Visit (PODIWS ) DESIREE AMES ([id number]) 1935 M Date Time Provider Department 08/14/24 11:30 AM VIPUL RICHARD PODIWS During your visit today, we recorded the following information about you: Lashanda Murillo RN 08/14/2024 12:02 PM Signed Patient presents with: Left Foot - Established Patient, Follow Up, Diabetic Foot Care Right Foot - Established Patient, Follow Up, Diabetic Foot Care Patient presents for 9 week follow up diabetic foot/nail care. LYNDSEY 06/11/24 Vipul Richard 08/14/2024 12:02 PM Signed Last saw pcp: not in chart Subjective: Patient presents to clinic c/o painful toenails. They state that the nails are especially painful with shoe gear and pressure. Patient states that nails 1-5 b/l are painful. Patient admits to being diabetic and states that their blood sugar was 167 mg/dL this AM. No other pedal complaints at this time. Patient states no change in medications or medical history since last visit. Objective: Patient presents to clinic ambulating in snker Vasc: DP and PT pulses are faintly palpable bilateral. CFT is less than 5 seconds bilateral. Skin temperature is warm to cool proximal to distal bilateral. There is mild edema or varicosities noted. Neuro: Protective sensation is decreased to the foot and toes when tested with the 5.07 SWM bilateral. Vibratory sensation is absent at the hallux IPJ bilateral. The hallux is downgoing bilateral. Derm: Nails 1-5 b/l are painful, discolored-yellow, thick, crumbly, dystrophic and with subungal debris. Skin is of normal turgor, texture and hair growth is decreased bilateral. There are no hyperkeratosis, ulcerations, scars, [...] blood sugar under control to prevent complications. Stressed the importance of avoiding barefoot walking, wearing good shoes and inspection of feet daily Patient is to RTC in 3-4 months. Vipul Richard DPM Referring Provider: VIPUL RICHARD [[id number]] Allergies As of Date: 08/14/2024 Noted Allergy Reaction LEVAQUIN (LEVOFLOXACIN) 06/12/2005 4 - Hives FELODIPINE 06/12/2005 2 - Rash PLETAL (CILOSTAZOL) 01/23/2012 9 - Itching SULFA (SULFONAMIDE ANTIBIOTICS) 06/12/2005 9 - Itching Date Reviewed: 08/14/2024 Reviewed by: Lashanda Murillo RN - Fully Assessed Reason for Visit: Established Patient [175] Follow Up [171] Diabetic Foot Care [916] Established Patient [175] Follow Up [171] Diabetic Foot Care [916] Primary Visit Diagnosis:Onychomycosis [B35.1] Other Visit Diagnoses:Pain in toe of right foot [M79.674] Pain in toe of left foot [M79.675] 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 - ketoconazole (NIZORAL) 2 % cream Apply a small amount of cream to the affected area twice a day - aspirin 81 mg cap Take 1 tablet by mouth once daily. - tamsulosin (FLOMAX) 0.4 mg Take 0.4 mg by mouth once daily. - finasteride (PROSCAR) 5 mg tablet Take 1 tablet by mouth every afternoon. - insulin lispro (HUMALOG KWIKPEN INSULIN) 100 unit/mL Inject 10 Units subcutaneously three times a day before meals. - ELIQUIS 2.5 mg tab(s) Take 1 tablet by mouth every 12 hours. - budesonide-formoterol (SYMBICORT) 160-4.5 mcg/actuation inhaler inhale2 puffs BY MOUTH twice a day; administer with spacer, rinse mouth after each use] - FEROSUL 325 mg (65 mg iron) tablet Take 1 tablet by mouth every other day. - senna-docusate (SENNA-S) 8.6-50 mg per tablet Take 1 tablet by mouth two times a day. - SEMGLEE,INSULIN GLARG-YFGN,PEN 100 unit/mL (3 mL) insulin pen - UNIFINE PENTIPS 31 gauge x 1/4 ndle once daily. - meclizine (ANTIVERT) 25 mg tab meclizine hydrochloride 25 mg oral tablet (4 sources) Antiemetic Start: 09-13-2023 - insulin glargine (LANTUS SOLOSTAR U-100 INSULIN) 100 unit/mL (3 mL) Inject 18 Units subcutaneously once daily. - AMMONIUM LACTATE TOPICAL Apply to affected area as needed. Lotion - spironolactone (ALDACTONE) 25 mg tablet Take 25 mg by mouth as needed. - ipratropium-albuterol (DUONEB) 0.5 mg-3 mg(2.5 mg base)/3 mL nebu 4 TIMES DAILY NEEDED - furosemide (LASIX) 40 mg table (more content not included)... Normal [facility] Internal Medicine Office Shadia zheng 07-15-2024 Internal Medicine Office Visit Normal [facility] Mauricio 06-30-2024 CNOV Office Visit (VASSWS ) DESIREE AMES ([id number]) 1935 M Date Time Provider Department 06/30/24 11:30 AM DARRYL MALLORY During your visit today, we recorded the following information about you: Darryl Mallory, 06/30/2024 1:42 PM Signed [facility] DEPARTMENT OF VASCULAR SURGERY OUTPATIENT VISIT DATE June 30, 2024 OUTPATIENT VISIT TYPE ESTABLISHED SERVICE DATE: 06/30/2024 SERVICE TIME: 11:31 AM PRIMARY CARE PHYSICIAN: Riaz Garrison MD HISTORY OF PRESENT ILLNESS: Mr. Ames is a 89 year old male who presents today for a vascular surgery follow-up visit for peripheral arterial disease. He is s/p femoral endarterectomy in 11/[address] Zapata. Denies rest pain. He is getting treated for spine and hip pain. 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 Hilliard. Coronary atherosclerosis of unspecified type of vessel, [place] or graft 06/13/2005 Diverticulitis of colon (without [...] 08/21/2023 Superficial occlusion of femoral artery (HCC) Symptom of leg swelling 12/12/2023 Tobacco use disorder 06/12/2005 Type II or unspecified type diabetes mellitus without mention of complication, not stated as uncontrolled 01/24/2011 Unspecified essential hypertension 06/12/2005 Venous insufficiency (chronic) (peripheral) 05/11/2015 PAST SURGICAL HISTORY Procedure Laterality Date APPENDECTOMY DONE W/OTHR MAJOR SURGERY 1998 With inguinal hernia repair [facility] INCL FLUOR GDNCE DX W/CELL WASHG [...] percut, Prox. RCA. TRANSURETHRAL ELEC-SURG PROSTATECTOM 03/07/2022 SOCIAL HISTORY Social History Tobacco Use Smoking status: Former Current packs/day: 0.00 Average packs/day: 0.5 packs/day for 50.0 years (25.0 ttl pk-yrs) Types: Cigarettes, Cigars Start date: 02/04/1958 Quit date: 02/05/2008 Years since quittin.4 Smokeless tobacco: Never Vaping Use Vaping status: Never Used Substance Use Topics Alcohol use: Yes Comment: Rare Drug use: No MEDICATIONS: tamsulosin (FLOMAX) 0.4 mg Take 0.4 mg by mouth once daily. finasteride (PROSCA (more content not included)... Normal [facility] PVR ANK/RAMIREZ/TOE SHANNON VAS LAB on 06-30-2024 PVR ANK/RAMIREZ/TOE SHANNON VAS LAB Non-Invasive Vascular Laboratory [facility] Lower Extremity Arterial Physiology Study Bilateral/Complete Date of service/time: 06/30/2024 11:03:38 AM Name: MR. DESIREE AMES Date of : 1935 Age: 89 years Gender: M Clinical Indication Aortobiiliac graft, right femoral endarterectomy 08/05/2018, left iliofemoral endarterectomy 11/12/2023. TECHNIQUE -------- An arterial physiological examination was performed, including measurement of blood pressures using continuous wave Doppler and recording of plethysmographic with or without Doppler waveforms at the below-mentioned limb segments. FINDINGS -------- RIGHT SIDE AT REST Right Doppler Waveforms Dorsalis pedis: Monophasic. Post tibial: Monophasic. Right Pressures Brachial: 125 mmHg Ankle dorsalis pedis: 87 mmHg MARILEE: 0.69 Ankle posterior tibial: 87 mmHg MARILEE: 0.69 Digit: 66 mmHg Right PVR Waveforms Ankle: Moderately dampened. Transmetatarsal: Moderately dampened. Digit: Moderately dampened. LEFT SIDE AT REST Left Doppler Waveforms Dorsalis pedis: Monophasic. Post tibial: Monophasic. Left Pressures Brachial: 126 mmHg Ankle dorsalis pedis: 78 mmHg MARILEE: 0.62 Ankle posterior tibial: 76 mmHg MARILEE: 0.60 Digit: 77 mmHg Left PVR Waveforms Ankle: Moderately dampened. Transmetatarsal: Moderately dampened. Digit: Moderately dampened. IMPRESSION Compared to prior study of 10/17/2023, Right ankle brachial index was 0.86 and left was 0.34. RIGHT SIDE Resting right ankle brachial index: 0.69 Right toe brachial index: 0.52 Abnormal ankle brachial index at rest diagnostic of peripheral artery disease. Abnormal toe brachial index at rest is evidence of peripheral artery disease. Right ankle: Moderate disease at rest. LEFT SIDE Resting left ankle brachial index: 0.62 Left toe brachial index: 0.61 Abnormal ankle brachial index at rest diagnostic of peripheral artery disease. Abnormal toe brachial index at rest is evidence of peripheral artery disease. Left ankle: Moderate disease at rest. Technologist: Scarlet Bray [facility]T [facility] Ordering physician: RENE ZAPATA Interpreting physician: RANJEET Clements DO Final CC sarvaMAIL Medical Image : [id number] ISUID See Link below for Image Normal [facility] 12 Lead EKGon 06-29-2024 12 Lead EKG Normal [facility] Basic Metabolic Profile (BMP )on 06-29-2024 BUN/CRE 22.9 RATIO High 10-20 [facility] Comment on above: Performed By: #### L 500.2500, L100.0100 ####[facility] [address] [place], [place], [address] CA,Total 9.0 mg/dL Normal 8.5-10.1 [facility] Comment on above: Result Comment: Slig ht Lipemia, Result may be falsely increased. Performed By: #### L 500.2500, L100.0100 ####[facility] [address] [place], [address] Chloride [Moles/Vol] 104 mmol/L Normal 98-107 [facility] Comment on above: Performed By: #### L 500.2500, L100.0100 ####[facility] [address] [place], [address] CO2 [Moles/Vol] 26.0 mmol/L Normal 21.0-32.0 [facility] Comment on above: Result Comment: Slig ht Lipemia, Result may be falsely increased. Performed By: #### L 500.2500, L100.0100 ####[facility] [address] [place], [address] Creatinine [Mass/Vol] 1.92 mg/dL High 0.70-1.30 [facility] Comment on above: Result Comment: Slig ht Lipemia, Result may be falsely increased.The validity of the calculated GFR GFRAA in patients over70 years has not been determined. Clinical correlation isessential. Performed By: #### L 500.2500, L100.0100 ####[facility] [address] [place], [address] ECRCL 24.61 ml/min Normal [facility] Comment on above: Performed By: #### L 500.2500, L100.0100 ####[facility] [address] [place], [address] EST GFR - AA 43 mL/min Low >60 [facility] Comment on above: Result Comment: Afri can Bulgarian GFR Calc Performed By: #### L 500.2500, L100.0100 ####[facility] [address] [place], [address] GAP 10 Normal 5-15 [facility] Comment on above: Performed By: #### L 500.2500, L100.0100 ####[facility] [address] [place], [address] GFR/1.73 sq M.predicted among non-blacks MDRD (S/P/Bld) [Vol rate/Area] 35 mL/min/{1.73_m2} Low >60 [facility] Comment on above: Result Comment: Non- GFR Calc Performed By: #### L 500.2500, L100.0100 ####[facility] [address] [place], [address] Glucose [Mass/Vol] 151 mg/dL High 74-106 [facility] Comment on above: Result Comment: Slig ht Lipemia, Result may be falsely increased.Fasting Glucose result greater than or equal to 126 mg/dLsuggests DIABETES MELLITUS per A.D.A. criteria. Performed By: #### L 500.2500, L100.0100 ####[facility] [address] [place], [address] Potassium [Moles/Vol] 3.5 mmol/L Normal 3.5-5.1 [facility] Comment on above: Result Comment: Slig ht Lipemia, Result may be falsely increased. Performed By: #### L 500.2500, L100.0100 ####[facility] [address] [place], [address] Sodium [Moles/Vol] 140 mmol/L Normal 136-145 [facility] Comment on above: Performed By: #### L 500.2500, L100.0100 ####[facility] [address] [place], [address] Urea nitrogen [Mass/Vol] 44 mg/dL High 7-18 [facility] Comment on above: Result Comment: Slig ht Lipemia, Result may be falsely increased. Performed By: #### L 500.2500, L100.0100 ####[facility] [address] [place], [address] Bedside Glucoseon 06-29-2024 FINGERSTICK GLU 239 mg/dL High 74-106 [facility] Comment on above: Result Comment: ERKIA GEMENT OF PATIENT CARE PER NURSING PROTOCOL Performed By: #### L 501.080 ####[facility] [address] [place], [address] FINGERSTICK GLU 154 mg/dL High 74-106 [facility] Comment on above: Result Comment: ERIKA GEMENT OF PATIENT CARE PER NURSING PROTOCOL Performed By: #### L 501.080 ####[facility] [address] [place], [address] CBC W/Diff, Automatedon 06-08-2023 Absolute Lymph 1.48 X10 3/uL Normal 0.83-4.51 [facility] Comment on above: Performed By: #### L 500.2500, L100.0100 ####[facility] [address] [place], [address] Absolute Neut 4.5 X10 3/uL Normal 2.0-7.7 [facility] Comment on above: Performed By: #### L 500.2500, L100.0100 ####[facility] [address] [place], [address] Basophils/100 WBC (Bld) 0.6 % Normal 0-1 [facility] Comment on above: Performed By: #### L 500.2500, L100.0100 ####[facility] [address] [place], [address] Eosinophils/100 WBC (Bld) 2.2 % Normal 0-5 [facility] Comment on above: Performed By: #### L 500.2500, L100.0100 ####[facility] [address] [place], [address] Erythrocyte distribution width (RBC) [Ratio] 16.8 % High 11.6-14.6 [facility] Comment on above: Performed By: #### L 500.2500, L100.0100 ####[facility] [address] [place], [address] Hematocrit (Bld) [Volume fraction] 35.5 % Low 40-54 [facility] Comment on above: Performed By: #### L 500.2500, L100.0100 ####[facility] [address] [place], [address] Hemoglobin (Bld) [Mass/Vol] 12.4 g/dL Low 13.0-16.5 [facility] Comment on above: Performed By: #### L 500.2500, L100.0100 ####[facility] [address] [place], [address] IG% 0.400 Normal 0.0-0.9 [facility] Comment on above: Result Comment: IG% - Immature Granulocytes (promyelocytes, myelocytes andmetamyelocytes) > 1% indicates that a LEFT SHIFT is Present. Performed By: #### L 500.2500, L100.0100 ####[facility] [address] [place], [address] Lymphocytes/100 WBC (Bld) 21.9 % Normal 19-41 [facility] Comment on above: Performed By: #### L 500.2500, L100.0100 ####[facility] [address] [place], [address] MCH (RBC) [Entitic mass] 33.3 pg High 27.0-32.0 [facility] Comment on above: Performed By: #### L 500.2500, L100.0100 ####[facility] [address] [place], [address] MCHC (RBC) [Mass/Vol] 34.9 g/dL Normal 32-36 [facility] Comment on above: Performed By: #### L 500.2500, L100.0100 ####[facility] [address] [place], [address] MCV (RBC) [Entitic vol] 95.4 fL High 80-94 [facility] Comment on above: Performed By: #### L 500.2500, L100.0100 ####[facility] [address] [place], [address] Monocytes/100 WBC (Bld) 9.2 % Normal 0-10 [facility] Comment on above: Performed By: #### L 500.2500, L100.0100 ####[facility] [address] [place], [address] Neutrophils/100 WBC (Bld) 65.7 % Normal 47-70 [facility] Comment on above: Performed By: #### L 500.2500, L100.0100 ####[facility] [address] [place], [address] Nucleated RBC (Bld) [#/Vol] 0 10*3/uL Normal 0-5 [facility] Comment on above: Performed By: #### L 500.2500, L100.0100 ####[facility] [address] [place], [address] Platelet mean volume (Bld) [Entitic vol] 10.1 fL Normal 6.2-12.0 [facility] Comment on above: Performed By: #### L 500.2500, L100.0100 ####[facility] [address] [place], [address] Platelets (Bld) [#/Vol] 260 10*3/uL Normal 150-450 [facility] Comment on above: Performed By: #### L 500.2500, L100.0100 ####[facility] [address] [place], [address] RBC (Bld) [#/Vol] 3.72 10*6/uL Low 4.6-6.2 [facility] Comment on above: Performed By: #### L 500.2500, L100.0100 ####[facility] [address] [place], [address] RDW SD 52.7 fl High 35.1-43.9 [facility] Comment on above: Performed By: #### L 500.2500, L100.0100 ####[facility] [address] [place], [address] WBC (Bld) [#/Vol] 6.8 10*3/uL Normal 4.4-11.0 [facility] Comment on above: Performed By: #### L 500.2500, L100.0100 ####[facility] [address] [place], [address] Discharge Instructionon 06-08 Discharge Instruction Normal [facility] Stress Reporton 06-29-2024 Stress Report Normal [facility] 12 Lead EKGon 06-28-2024 12 Lead EKG Normal [facility] 12 Lead EKG Normal [facility] Basic Metabolic Profile (BMP )on 06-28-2024 BUN/CRE 21.6 RATIO High 10-20 [facility] Comment on above: Order Comment: 1Y Performed By: #### L 501.5425, L500.2500, L100.0100 ####[facility] [address] [place], [address] CA,Total 9.5 mg/dL Normal 8.5-10.1 [facility] Comment on above: Order Comment: 1Y Result Comment: Slig ht Lipemia, Result may be falsely increased. Performed By: #### L 501.5425, L500.2500, L100.0100 ####[facility] [address] [place], [address] Chloride [Moles/Vol] 102 mmol/L Normal 98-107 [facility] Comment on above: Order Comment: 1Y Performed By: #### L 501.5425, L500.2500, L100.0100 ####[facility] [address] [place], [address] CO2 [Moles/Vol] 28.0 mmol/L Normal 21.0-32.0 [facility] Comment on above: Order Comment: 1Y Result Comment: Slig ht Lipemia, Result may be falsely increased. Performed By: #### L 501.5425, L500.2500, L100.0100 ####[facility] [address] [place], [address] Creatinine [Mass/Vol] 2.08 mg/dL High 0.70-1.30 [facility] Comment on above: Order Comment: 1Y Result Comment: Slig ht Lipemia, Result may be falsely increased.The validity of the calculated GFR GFRAA in patients over70 years has not been determined. Clinical correlation isessential. Performed By: #### L 501.5425, L500.2500, L100.0100 ####[facility] [address] [place], [address] ECRCL 27.00 ml/min Normal [facility] Comment on above: Order Comment: 1Y Performed By: #### L 501.5425, L500.2500, L100.0100 ####[facility] [address] [place], [address] EST GFR - AA 39 mL/min Low >60 [facility] Comment on above: Order Comment: 1Y Result Comment: Afri can Bulgarian GFR Calc Performed By: #### L 501.5425, L500.2500, L100.0100 ####[facility] [address] [place], [address] GAP 8 Normal 5-15 [facility] Comment on above: Order Comment: 1Y Performed By: #### L 501.5425, L500.2500, L100.0100 ####[facility] [address] [place], [address] GFR/1.73 sq M.predicted among non-blacks MDRD (S/P/Bld) [Vol rate/Area] 32 mL/min/{1.73_m2} Low >60 [facility] Comment on above: Order Comment: 1Y Result Comment: Non- GFR Calc Performed By: #### L 501.5425, L500.2500, L100.0100 ####[facility] [address] [place], [address] Glucose [Mass/Vol] 182 mg/dL High 74-106 [facility] Comment on above: Order Comment: 1Y Result Comment: Slig ht Lipemia, Result may be falsely increased.Fasting Glucose result greater than or equal to 126 mg/dLsuggests DIABETES MELLITUS per A.D.A. criteria. Performed By: #### L 501.5425, L500.2500, L100.0100 ####[facility] [address] [place], [address] Potassium [Moles/Vol] 3.6 mmol/L Normal 3.5-5.1 [facility] Comment on above: Order Comment: 1Y Result Comment: Slig ht Lipemia, Result may be falsely increased. Performed By: #### L 501.5425, L500.2500, L100.0100 ####[facility] [address] [place], [address] Sodium [Moles/Vol] 138 mmol/L Normal 136-145 [facility] Comment on above: Order Comment: 1Y Performed By: #### L 501.5425, L500.2500, L100.0100 ####[facility] [address] [place], [address] Urea nitrogen [Mass/Vol] 45 mg/dL High 7-18 [facility] Comment on above: Order Comment: 1Y Result Comment: Slig ht Lipemia, Result may be falsely increased. Performed By: #### L 501.5425, L500.2500, L100.0100 ####[facility] [address] [place], [address] Bedside Glucoseon 06-28-2024 FINGERSTICK GLU 261 mg/dL High 74-106 [facility] Comment on above: Result Comment: ERIKA GEMENT OF PATIENT CARE PER NURSING PROTOCOL Performed By: #### L 501.080 ####[facility] [address] [place], [address] FINGERSTICK GLU 109 mg/dL High 74-106 [facility] Comment on above: Result Comment: ERIKA GEMENT OF PATIENT CARE PER NURSING PROTOCOL Performed By: #### L 501.080 ####[facility] [address] [place], [address] CBC W/Diff, Automatedon 06-08 MCHC (RBC) [Mass/Vol] 35.7 g/dL Normal 32-36 [facility] Comment on above: Result Comment: H H CHANGE Performed By: #### L 501.5425, L500.2500, L100.0100 ####[facility] [address] [place], [address] Absolute Lymph 1.38 X10 3/uL Normal 0.83-4.51 [facility] Comment on above: Performed By: #### L 501.5425, L500.2500, L100.0100 ####[facility] [address] [place], [address] Absolute Neut 5.5 X10 3/uL Normal 2.0-7.7 [facility] Comment on above: Performed By: #### L 501.5425, L500.2500, L100.0100 ####[facility] [address] [place], [address] Basophils/100 WBC (Bld) 0.5 % Normal 0-1 [facility] Comment on above: Performed By: #### L 501.5425, L500.2500, L100.0100 ####[facility] [address] [place], [address] Eosinophils/100 WBC (Bld) 2.0 % Normal 0-5 [facility] Comment on above: Performed By: #### L 501.5425, L500.2500, L100.0100 ####[facility] [address] [place], [address] Erythrocyte distribution width (RBC) [Ratio] 17.1 % High 11.6-14.6 [facility] Comment on above: Performed By: #### L 501.5425, L500.2500, L100.0100 ####[facility] [address] [place], [address] Hematocrit (Bld) [Volume fraction] 38.4 % Low 40-54 [facility] Comment on above: Performed By: #### L 501.5425, L500.2500, L100.0100 ####[facility] [address] [place], [address] Hemoglobin (Bld) [Mass/Vol] 13.7 g/dL Normal 13.0-16.5 [facility] Comment on above: Performed By: #### L 501.5425, L500.2500, L100.0100 ####[facility] [address] [place], [address] IG% 0.500 Normal 0.0-0.9 [facility] Comment on above: Result Comment: IG% - Immature Granulocytes (promyelocytes, myelocytes andmetamyelocytes) > 1% indicates that a LEFT SHIFT is Present. Performed By: #### L 501.5425, L500.2500, L100.0100 ####[facility] [address] [place], [address] Lymphocytes/100 WBC (Bld) 17.6 % Low 19-41 [facility] Comment on above: Performed By: #### L 501.5425, L500.2500, L100.0100 ####[facility] [address] [place], [address] MCH (RBC) [Entitic mass] 34.2 pg High 27.0-32.0 [facility] Comment on above: Performed By: #### L 501.5425, L500.2500, L100.0100 ####[facility] [address] [place], [address] MCV (RBC) [Entitic vol] 95.8 fL High 80-94 [facility] Comment on above: Performed By: #### L 501.5425, L500.2500, L100.0100 ####[facility] [address] [place], [address] Monocytes/100 WBC (Bld) 8.8 % Normal 0-10 [facility] Comment on above: Performed By: #### L 501.5425, L500.2500, L100.0100 ####[facility] [address] [place], [address] Neutrophils/100 WBC (Bld) 70.6 % High 47-70 [facility] Comment on above: Performed By: #### L 501.5425, L500.2500, L100.0100 ####[facility] [address] [place], [address] Nucleated RBC (Bld) [#/Vol] 0 10*3/uL Normal 0-5 [facility] Comment on above: Performed By: #### L 501.5425, L500.2500, L100.0100 ####[facility] [address] [place], [address] Platelet mean volume (Bld) [Entitic vol] 10.1 fL Normal 6.2-12.0 [facility] Comment on above: Performed By: #### L 501.5425, L500.2500, L100.0100 ####[facility] [address] [place], [address] Platelets (Bld) [#/Vol] 285 10*3/uL Normal 150-450 [facility] Comment on above: Performed By: #### L 501.5425, L500.2500, L100.0100 ####[facility] [address] [place], [address] RBC (Bld) [#/Vol] 4.01 10*6/uL Low 4.6-6.2 [facility] Comment on above: Performed By: #### L 501.5425, L500.2500, L100.0100 ####[facility] [address] [place], [address] RDW SD 52.4 fl High 35.1-43.9 [facility] Comment on above: Performed By: #### L 501.5425, L500.2500, L100.0100 ####[facility] [address] [place], [address] WBC (Bld) [#/Vol] 7.9 10*3/uL Normal 4.4-11.0 [facility] Comment on above: Performed By: #### L 501.5425, L500.2500, L100.0100 ####[facility] [address] [place], [address] Chest 1 View (Portable)on Chest 1 View (Portable) Normal [facility] Emergency Department Summary on 06-28-2024 Emergency Department Summary Normal [facility] H AND P Exam - Hospitaliston 06-28-2024 H&P Exam - Hospitalist Normal [facility] L501.4020on 06-28-2024 TROPONIN-I HS 53 pg/mL Normal 3.0-78.0 [facility] Comment on above: Order Comment: Comme nts: SPECIMEN #3'TROP' Serial specimen #1, #2 or #3: 3 Result Comment: Plea se Note: New Test Units and Gender Specific Reference Ranges. For more information see Policy Stat Procedure [place] High Sensitivity Troponin (TNIH) and attachments. Performed By: #### L 501.4020 ####[facility] [address] [place], [address] TROPONIN-I HS 32 pg/mL Normal 3.0-78.0 [facility] Comment on above: Result Comment: Plea se Note: New Test Units and Gender Specific Reference Ranges. For more information see Policy Stat Procedure [place] High Sensitivity Troponin (TNIH) and attachments. Performed By: #### L 501.4020 ####[facility] [address] [place], [address] L501.5425on 06-28-2024 TROPONIN-I HS 32 pg/mL Normal 3.0-78.0 [facility] Comment on above: Order Comment: 1Y Result Comment: Plea se Note: New Test Units and Gender Specific Reference Ranges. For more information see Policy Stat Procedure [place] High Sensitivity Troponin (TNIH) and attachments. Performed By: #### L 501.5425, L500.2500, L100.0100 ####[facility] [address] [place], [address] 12 Lead EKGon 06-25-2024 12 Lead EKG Normal [facility] Basic Metabolic Profile (BMP )on 06-25-2024 BUN/CRE 19.1 RATIO Normal 10-20 [facility] Comment on above: Order Comment: 1Y Performed By: #### L 501.5425, L100.0100, L500.2500 ####[facility] [address] [place], [address] CA,Total 9.9 mg/dL Normal 8.5-10.1 [facility] Comment on above: Order Comment: 1Y Result Comment: Slig ht Lipemia, Result may be falsely increased. Performed By: #### L 501.5425, L100.0100, L500.2500 ####[facility] [address] [place], [address] Chloride [Moles/Vol] 103 mmol/L Normal 98-107 [facility] Comment on above: Order Comment: 1Y Performed By: #### L 501.5425, L100.0100, L500.2500 ####[facility] [address] [place], [address] CO2 [Moles/Vol] 24.0 mmol/L Normal 21.0-32.0 [facility] Comment on above: Order Comment: 1Y Result Comment: Slig ht Lipemia, Result may be falsely increased. Performed By: #### L 501.5425, L100.0100, L500.2500 ####[facility] [address] [place], [address] Creatinine [Mass/Vol] 2.25 mg/dL High 0.70-1.30 [facility] Comment on above: Order Comment: 1Y Result Comment: Slig ht Lipemia, Result may be falsely increased.The validity of the calculated GFR GFRAA in patients over70 years has not been determined. Clinical correlation isessential. Performed By: #### L 501.5425, L100.0100, L500.2500 ####[facility] [address] [place], [address] ECRCL 24.97 ml/min Normal [facility] Comment on above: Order Comment: 1Y Performed By: #### L 501.5425, L100.0100, L500.2500 ####[facility] [address] [place], [address] EST GFR - AA 36 mL/min Low >60 [facility] Comment on above: Order Comment: 1Y Result Comment: Afri can Bulgarian GFR Calc Performed By: #### L 501.5425, L100.0100, L500.2500 ####[facility] [address] [place], [address] GAP 11 Normal 5-15 [facility] Comment on above: Order Comment: 1Y Performed By: #### L 501.5425, L100.0100, L500.2500 ####[facility] [address] [place], [address] GFR/1.73 sq M.predicted among non-blacks MDRD (S/P/Bld) [Vol rate/Area] 30 mL/min/{1.73_m2} Low >60 [facility] Comment on above: Order Comment: 1Y Result Comment: Non- GFR Calc Performed By: #### L 501.5425, L100.0100, L500.2500 ####[facility] [address] [place], [address] Glucose [Mass/Vol] 179 mg/dL High 74-106 [facility] Comment on above: Order Comment: 1Y Result Comment: Slig ht Lipemia, Result may be falsely increased.Fasting Glucose result greater than or equal to 126 mg/dLsuggests DIABETES MELLITUS per A.D.A. criteria. Performed By: #### L 501.5425, L100.0100, L500.2500 ####[facility] [address] [place], [address] Potassium [Moles/Vol] 3.5 mmol/L Normal 3.5-5.1 [facility] Comment on above: Order Comment: 1Y Result Comment: Slig ht Lipemia, Result may be falsely increased. Performed By: #### L 501.5425, L100.0100, L500.2500 ####[facility] [address] [place], [address] Sodium [Moles/Vol] 138 mmol/L Normal 136-145 [facility] Comment on above: Order Comment: 1Y Performed By: #### L 501.5425, L100.0100, L500.2500 ####[facility] [address] [place], [address] Urea nitrogen [Mass/Vol] 43 mg/dL High 7-18 [facility] Comment on above: Order Comment: 1Y Result Comment: Slig ht Lipemia, Result may be falsely increased. Performed By: #### L 501.5425, L100.0100, L500.2500 ####[facility] [address] [place], [address] CBC W/Diff, Automatedon 06-07 Absolute Lymph 1.64 X10 3/uL Normal 0.83-4.51 [facility] Comment on above: Performed By: #### L 501.5425, L100.0100, L500.2500 ####[facility] [address] [place], [address] Absolute Neut 4.7 X10 3/uL Normal 2.0-7.7 [facility] Comment on above: Performed By: #### L 501.5425, L100.0100, L500.2500 ####[facility] [address] [place], [address] Basophils/100 WBC (Bld) 0.7 % Normal 0-1 [facility] Comment on above: Performed By: #### L 501.5425, L100.0100, L500.2500 ####[facility] [address] [place], [address] Eosinophils/100 WBC (Bld) 1.3 % Normal 0-5 [facility] Comment on above: Performed By: #### L 501.5425, L100.0100, L500.2500 ####[facility] [address] [place], [address] Erythrocyte distribution width (RBC) [Ratio] 16.8 % High 11.6-14.6 [facility] Comment on above: Performed By: #### L 501.5425, L100.0100, L500.2500 ####[facility] [address] [place], [address] Hematocrit (Bld) [Volume fraction] 39.7 % Low 40-54 [facility] Comment on above: Performed By: #### L 501.5425, L100.0100, L500.2500 ####[facility] [address] [place], [address] Hemoglobin (Bld) [Mass/Vol] 13.2 g/dL Normal 13.0-16.5 [facility] Comment on above: Performed By: #### L 501.5425, L100.0100, L500.2500 ####[facility] [address] [place], [address] IG% 0.600 Normal 0.0-0.9 [facility] Comment on above: Result Comment: IG% - Immature Granulocytes (promyelocytes, myelocytes andmetamyelocytes) > 1% indicates that a LEFT SHIFT is Present. Performed By: #### L 501.5425, L100.0100, L500.2500 ####[facility] [address] [place], [address] Lymphocytes/100 WBC (Bld) 23.0 % Normal 19-41 [facility] Comment on above: Performed By: #### L 501.5425, L100.0100, L500.2500 ####[facility] [address] [place], [address] MCH (RBC) [Entitic mass] 31.1 pg Normal 27.0-32.0 [facility] Comment on above: Performed By: #### L 501.5425, L100.0100, L500.2500 ####[facility] [address] [place], [address] MCHC (RBC) [Mass/Vol] 33.2 g/dL Normal 32-36 [facility] Comment on above: Performed By: #### L 501.5425, L100.0100, L500.2500 ####[facility] [address] [place], [address] MCV (RBC) [Entitic vol] 93.4 fL Normal 80-94 [facility] Comment on above: Performed By: #### L 501.5425, L100.0100, L500.2500 ####[facility] [address] [place], [address] Monocytes/100 WBC (Bld) 9.0 % Normal 0-10 [facility] Comment on above: Performed By: #### L 501.5425, L100.0100, L500.2500 ####[facility] [address] [place], [address] Neutrophils/100 WBC (Bld) 65.4 % Normal 47-70 [facility] Comment on above: Performed By: #### L 501.5425, L100.0100, L500.2500 ####[facility] [address] [place], [address] Nucleated RBC (Bld) [#/Vol] 0 10*3/uL Normal 0-5 [facility] Comment on above: Performed By: #### L 501.5425, L100.0100, L500.2500 ####[facility] [address] [place], [address] Platelet mean volume (Bld) [Entitic vol] 9.8 fL Normal 6.2-12.0 [facility] Comment on above: Performed By: #### L 501.5425, L100.0100, L500.2500 ####[facility] [address] [place], [address] Platelets (Bld) [#/Vol] 306 10*3/uL Normal 150-450 [facility] Comment on above: Performed By: #### L 501.5425, L100.0100, L500.2500 ####[facility] [address] [place], [address] RBC (Bld) [#/Vol] 4.25 10*6/uL Low 4.6-6.2 [facility] Comment on above: Performed By: #### L 501.5425, L100.0100, L500.2500 ####[facility] [address] [place], [address] RDW SD 52.0 fl High 35.1-43.9 [facility] Comment on above: Performed By: #### L 501.5425, L100.0100, L500.2500 ####[facility] [address] [place], [address] WBC (Bld) [#/Vol] 7.1 10*3/uL Normal 4.4-11.0 [facility] Comment on above: Performed By: #### L 501.5425, L100.0100, L500.2500 ####[facility] [address] [place], [address] Chest 1 View (Portable)on Chest 1 View (Portable) Normal [facility] Emergency Department Summary on 06-25-2024 Emergency Department Summary Normal [facility] L501.4020on 06-25-2024 TROPONIN-I HS 27 pg/mL Normal 3.0-78.0 [facility] Comment on above: Result Comment: Plea se Note: New Test Units and Gender Specific Reference Ranges. For more information see Policy Stat Procedure [place] High Sensitivity Troponin (TNIH) and attachments. Performed By: #### L 501.4020 ####[facility] [address] [place], [address] L501.5425on 06-25-2024 TROPONIN-I HS 32 pg/mL Normal 3.0-78.0 [facility] Comment on above: Order Comment: 1Y Result Comment: Plea se Note: New Test Units and Gender Specific Reference Ranges. For more information see Policy Stat Procedure [place] High Sensitivity Troponin (TNIH) and attachments. Performed By: #### L 501.5425, L100.0100, L500.2500 ####[facility] [address] [place], [address] Cardiology Visit Reporton Cardiology Visit Report Normal [facility] CNOVon 06-11-2024 CNOV Office Visit (PODIWS ) DESIREE AMES ([id number]) 1935 M Date Time Provider Department 06/11/24 1:00 PM VIPUL RICHARD PODIWS During your visit today, we recorded the following information about you: Lashanda Murillo, COLLEEN 06/14/2024 10:47 PM Signed Patient presents with: Left Foot - Established Patient, Follow Up, Diabetic Foot Care Right Foot - Established Patient, Follow Up, Diabetic Foot Care Patient presents for follow up diabetic foot care. LYNDSEY 03/30/24 Vipul Richard 06/11/2024 1:06 PM Signed Diabetes Foot Care Instructions When you have [...] (or decreased sensation in your feet) a instructor dramatic arts should always cut your toenails. Be Careful [...] Go to your health care provider or instructor dramatic arts to treat these conditions. Vipul Richard 06/14/2024 10:47 PM Signed Last saw pcp: 04/06/24 Subjective: Patient presents to clinic c/o painful toenails. They state that the nails are especially painful with shoe gear and pressure. Patient states that hallux nails are painful. Patient admits to being diabetic. No other pedal complaints at this time. Patient states no change in medications or medical history since last visit. Objective: Patient presents to clinic ambulating in sneakers Vasc: DP and PT pulses are nonpalpable bi (more content not included)... Normal [facility] ANES POSTPROC EVALon 024 ANES POSTPROC EVAL HNO ID: [id number] Author: TRACY MOTA MD Service: Anesthesiology Author Type: Physician Type: Anesthesia Postprocedure Evaluation Filed: 03/05/2024 14:32 Note Text: POST ANESTHESIA EVALUATION NOTE : 1935 Procedure Summary Date: 03/05/24 Room / Location: [facility] Anesthesia Start: 1029 Anesthesia Stop: 1156 Procedure: COLONOSCOPY DIAGNOSTIC Diagnosis: Mass of colon Scheduled Providers: Josemanuel Kim MD Responsible Provider: Tracy Mota MD Anesthesia Type: MAC ASA Status: 4 Anesthesia Type: MAC Last Vitals Vitals Value Taken Time BP 133/70 03/05/24 1220 Temp 36.7 ?C (98.1 ?F) 03/05/24 1150 HR SpO2 66 03/05/24 1228 Resp 16 03/05/24 1220 SpO2 96 % 03/05/24 1228 Vitals shown include unfiled device data. Post Anesthesia Patient Status Patient Evaluation: PACU. PACU/ICU Patient Condition: stable. Anticipated Disposition: phase 2 then home. Neurological Status: aware and responsive. Pulmonary Status: breathing comfortably on room air Airway Control: returned to baseline unsupported. Cardiovascular Status: stable. Pain Management: clinically adequate Postoperative Hydration: acceptable. Intraoperative Events: no significant anesthesia events Post Operative Nausea/Vomiting Status: no significant post operative nausea or vomiting Recommendation: continue current plan of care. Anesthesia Observations No Documentation SIGNATURE: Tracy Mota MD PATIENT NAME: Desiree Ames DATE: March 05, 2024 TIME: 2:32 PM CSN: [id number] [facility] ANES PRE-OPon 03-05-2024 ANES PRE-OP HNO ID: [id number] Author: TRACY MOTA MD Service: Anesthesiology Author Type: Physician Type: Anesthesia Preprocedure Evaluation Filed: 03/05/2024 09:53 Note Text: ANESTHESIOLOGY DAY OF SURGERY NOTE : 1935 Procedure Information Date/Time: 03/05/24 1030 Scheduled providers: Josemanuel Kim MD Procedure: COLONOSCOPY DIAGNOSTIC Location: [facility] Estimated body mass index is 28.89 kg/m? as calculated from the following: Height as of 02/27/24: 172.7 cm (5' 8). Weight as of 02/27/24: 86.2 kg (190 lb). 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) (+) Coronary artery disease involving [place] coronary artery of [place] heart without angina pectoris (+) Femoral artery thrombosis (HCC) (+) Hypertension (+) PAD (peripheral artery disease) (HCC) (+) Peripheral arterial disease (HCC) (+) Superficial femoral artery occlusion (HCC) (+) Venous insufficiency (chronic) (peripheral) ENDO (+) 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 Tracheostomy tube not present Mallampati: II. TM distance: >3 FB. Neck ROM: full ROM without neurological symptoms. Mouth opening: adequate. Short neck: no. Thick neck: no DENTAL Dental findings: teeth intact. Additional exam findings: yes. Other findings: PATIENT: Name: MR. DESIREE AMES Age: 88 years Gender: M CONCLUSIONS: 1. SPECT Perfusion Study: Abnormal. 2. There is mild (<10%) ischemia in the territory of the LCX. 3. There is a small (<10%) fixed perfusion defect in the LAD territory. 4. There is a moderate (10-20%) fixed perfusion defect in the LCX territory. 5. Left ventricle is mildly dilated. The left ventricle systolic function is normal. 6. Right ventricle is normal in size. The right ventricle systolic function is normal. 7. This is an intermediate risk scan. 8. Normal EKG portion of the stress test. Gated Stress FBP LVEF % 53 . II - ANESTHESIA PLAN ASA Score: 4 Anesthetic Plan: MAC The patient is not a current smoker. NPO Status: adequate Anesthetic plan additional comments: CAD/PAD/PVD COPD HTN DM2. Beta Wagner Monitoring Plan Monitoring plan: standard ASA. Post Procedure Analgesic Plan Postoperative analgesic plan: multimodal analgesia. Informed Consent Anesthetic risks, benefits, alternatives, personnel and consent discussed: yes. Patient / Responsible Democrat agrees to proceed: yes Patient / Surrogate agrees to blood products: blood products not planned Significant changes in the patient condition since the History and Physical, not otherwise documented in primary service progress note: no. Potential Anesthesia issues that may suggest increased risk of complications or contraindication to planned procedure: none. No vitals data found for the desired time range. Outpatient Medications as of 03/05/2024 Medication Sig insulin lispro (HUMALOG KWIKPEN INSULIN) 100 unit/mL Inject 15 Units subcutaneously three times a day before meals. ELIQUIS 2.5 mg tab(s) Take 1 tablet by mouth every 12 hours. budesonide-formoterol (SYMBICORT) 160-4.5 mcg/actuation inhaler inhale2 puffs BY MOUTH twice a day; administer with spacer, rinse mouth after each use] FEROSUL 325 mg (65 mg iron) tablet Take 1 tablet by mouth every other day. insulin glargine (LANTUS SOLOSTAR U-100 INSULIN) 100 unit/mL (3 mL) Inject 22 Units subcutaneously once daily. ipratropium-albuterol (DUONEB) 0.5 mg-3 mg(2.5 mg base)/3 mL nebu 4 TIMES DAILY NEEDED furosemide (LASIX) 40 mg tablet Take 80 mg by mouth two times a day. carvedilol (COREG) 25 mg tablet Take 1 tablet by mouth twice daily. Dr. Pierre. hydrALAZINE (APRESOLINE) 100 mg tablet Take 100 mg by mouth two times a day. Dr. Pierre. acetaminophen (TYLENOL) 500 mg tablet Take 500 mg by mouth every 6 hours as needed. albuterol HFA (PROVENTIL HFA, [...] tablet Take 500 mg by mouth once d (more content not included)... Normal [facility] OPERATIVE NOon 03-05-2024 OPERATIVE NO HNO ID: [id number] Author: JOSEMANUEL KIM MD Service: General Surgery Author Type: Physician Type: Operative Report Filed: 03/05/2024 11:53 Note Text: OPERATIVE/PROCEDURE REPORT LOG ID: [id number] Surgery/Procedure Date: Incision/Procedure Start Time: 10:35 AM Incision Close/Procedure End Time: 11:41 AM Surgeon(s)/Proceduralis t(s) and Medical Insurance Coder(s): Surgeon(s) and Role: * Kimberlee Gomez DO - Resident - Assisting * Josemanuel Kim MD - Proceduralist No Additional Staff Procedure(s): Colonoscopy with endoscopic mucosal resection of a cecal mass and multiple other polypectomies, Endo Clip placement Anesthesia: MAC Brief History: The patient is a pleasant 38-year-old male with a known history of of cecal mass seen on a prior colonoscopy but not addressed at that time. He has been dealing with refractory anemia and concern that this mass was causing a slow but ongoing blood loss was raised. For that reason we discussed going back for another colonoscopy to characterize this mass and see if it was resectable. Procedure Details: The patient was placed in the left lateral decubitus position. A digital rectal exam was performed and this was normal. The Olympus colonoscope was introduced into the rectum and advanced to the cecum. The procedure was fairly technically difficult due to looping in the sigmoid colon which was reduced with manual pressure. The cecum was identified by the appendiceal orifice and the ileocecal valve. A large polyp was seen on the fold directly distal to the ileocecal valve. This was better appreciated on retroflexion. Preparation was made for EMR. We performed submucosal lift with Eleview lifting agent and a sclerotherapy needle. The edges of the lesion were demarcated. Hot snare was then used to remove the lesion in 3 pieces with complete removal confirmed. We placed an endoscopic clip to close a small area of exposed muscularis. Another nearby polyp which was 7 mm was removed with hot snare and these were sent in 1 specimen. The bowel preparation was good and the total withdrawal time was over 6 minutes. The scope was then slowly withdrawn and the mucosal folds examined in detail. There were no abnormalities in the ascending colon and descending colon but in the transverse colon a 7 mm polyp was found and removed with hot snare in 1 piece and fully retrieved. In the sigmoid colon significant diverticulosis was appreciated with tortuosity of the colon and we also found a 7 mm polyp which was removed in 1 piece with hot snare and fully retrieved. In the rectum an 8 mm polyp was found and removed in 1 piece with hot snare. This was also fully retrieved. All areas were noted to be hemostatic at the time of withdrawal. Retroflexion was performed and this showed no other pathology. The scope was then withdrawn and the patient tolerated the procedure well. Pre-Op/Pre-Procedure Diagnosis: Colon mass Post-Op/Post-Procedure Diagnosis: Same, colon polyps Specimens: See above EBL: None Complications: None Recommendations: no further colonoscopies indicated due to age I/primary surgeon/proceduralist performed the procedure with assistance. Josemanuel Kim MD SIGNATURE: Josemanuel Kim MD PATIENT NAME: Desiree Ames DATE: March 05, 2024 TIME: 11:48 AM PAGER/CONTACT #: [phone] [facility] SURGICAL PATHOLOGYon 024 CASE REPORT [facility] Comment on above: Order Comment: Speci quintin Type: TISSUE SPECIMENOrdering Facility: [facility] Address: [address] [place] [address] Result Comment: [facility] Pathology Report Case: [id number] Authorizing Provider: Josemanuel Kim MD Collected: 03/05/2024 11:20 AM Ordering Location: [facility] Received: 03/05/2024 04:02 PM Pathologist: Ben Cheng MD Specimens: A) - Colon, Cecum, Polyp, cecal mass B) - Colon, Transverse, Polyp C) - Colon, Sigmoid, Polyp D) - Rectum, Polyp Performed By: #### S ####[facility] [id number] [address] CLINICAL HISTORY Colonoscopy with endoscopic mucosal resection of a cecal mass and multiple other polypectomies [facility] Comment on above: Order Comment: Emerson ribeiro Type: TISSUE SPECIMENOrdering Facility: [facility] Address: [address] [place] [address] Performed By: #### S ####[facility] LABORATORYIA [id number] [address] DIAGNOSIS COMMENT Review of the endosc opy report reveals that the specimens received as part B, C, and D were reportedly removed as a single piece of tissue. All of these specimens contain multiple tissue fragments. Endoscopic correlation is required. [facility] Comment on above: Order Comment: Emerson ribeiro Type: TISSUE SPECIMENOrdering Facility: [facility] Address: [address] [place] [address] Performed By: #### S ####[facility] LABORATORYCLIA [id number] [address] FINAL DIAGNOSIS [facility] Comment on above: Order Comment: Emerson ribeiro Type: TISSUE SPECIMENOrdering Facility: [facility] Address: [address] [place] [address] Result Comment: A. C ecal mass, endoscopic mucosal resection: - Tubulovillous adenoma. B. Transverse colon, biopsy: - Tubular adenoma. See comment. C. Sigmoid colon, biopsy: - Tubulovillous adenoma. See comment. D. Rectum, biopsy: - Fragments of tubulovillous adenoma and serrated polyp. See comment. Performed By: #### S ####[facility]ORATORYCLIA [id number] [address] FINAL PERFORMING LAB Normal [facility] Comment on above: Order Comment: Emerson ribeiro Type: TISSUE SPECIMENOrdering Facility: [facility] Address: [address] [place] [address] Result Comment: Diag nostic interpretation performed at [facility], [address] [place] [address] CLIA# [id number] School Inspector: Ben Cheng M.D. Performed By: #### S ####[facility] LABORATORYCLIA [id number] [address] GROSS DESCRIPTION [facility] Comment on above: Order Comment: Emerson ribeiro Type: TISSUE SPECIMENOrdering Facility: [facility] Address: [address] [place] [address] Result Comment: A. C olon, Cecum, Polyp Received in formalin and designated cecal mass are 2 extremely friable [place] portions of tissue, 1.5 x 1.0 x 0.7 cm and 0.0 x 1.5 x 1.5 cm. The smaller portion of tissue does not have an identifiable base of attachment villous parents is extremely friable. This portion of tissue has fragmented upon sectioning and is entirely submitted 1. The larger portion of tissue has an identifiable base of attachment which is inked blue. It is serially sectioned and entirely submitted in cassettes A2 through A4. B. Colon, Transverse, Polyp Received in formalin and designated transverse colon polyp are fragments of [place] tissue intermixed with [place]inas possible vegetable material that has an aggregate measurement of 1.0 x 0.6 x 0.2 cm. The specimen is entirely submitted in cassette B1. C. Colon, Sigmoid, Polyp Received in formalin and designated sigmoid colon polyp are fragments of [place] tissue and possible vegetable material that is strained into a biopsy bag and has an aggregate measurement of 1.0 x 1.0 x 0.2 cm. The specimen is entirely submitted in cassette C1. D. Rectum, Polyp Received in formalin and designated rectum polyp are multiple fragments of [place] tissue and possible vegetable material with an aggregate measurement of 1.0 x 1.0 x 0.2 cm. KM March 06, 2024 1:34 PM Gross examination performed at [facility], [address] [place] [address] CLIA# [id number] Performed By: #### S ####[facility] LABORATORYCLIA [id number] [address] OF [facility] NURSING PROGon 02-27-2024 NURSING PROG HNO ID: [id number] Author: PIERRE LOUIS RN Service: ? Author Type: Registered Nurse Type: Nursing Progress Note Filed: 02/27/2024 14:34 Note Text: Spoke with Dr Durant regarding patient's extensive medical history including 3 ER visits in the past 3 months for COPD exacerbation in the setting of AFib, chronic kidney dysfunction and mild aortic stenosis, on long-term anticoagulation therapy. MD states as long as patient's COPD is well controlled on day of procedure, it would be OK to proceed as scheduled at the [facility] AND [facility], will be evaluated on day of procedure. [facility] CNCOon 02-26-2024 CNCO Letter Text [facility] CNOVon 02-26-2024 CNOV Office Visit (AGGENS 3) DESIREE AMES ([id number]) 1935 M Date Time Provider Department 02/26/24 10:30 AM JOSEMANUEL KIM3 During your visit today, we recorded the following information about you: Pulse Blood pressure Weight Height 72/minute 117/72 86.2 kg 1.727 m Josemanuel Kim MD 02/26/2024 11:14 AM Signed Josemanuel Kim M.D. Colon AND Rectal Surgery [address] [facility], [address] [place] [address] [facility] Desiree Ames is a 88 year old White male with anemia and history of colon mass HPI The patient is a pleasant 88-year-old male who underwent a colonoscopy 2 years ago during which she was found to have a number of colon polyps as well as an ascending colon mass. Tattoo was placed at this for concern that it was not resectable endoscopically. Biopsies were taken but we do not have those biopsy results present. The mass was noncircumferential and non obstructing He has had longstanding chronic kidney disease and is concerned that ever since the colonoscopy this has been worse. He also has longstanding anemia which has been difficult to control. Last labs in our system are from November and show a hemoglobin of 9 this was done after a vascular surgery. Going going back for several years he was 12.8 in 2021. Surgical history is notable for an appendectomy, open AAA repair, and inguinal hernia repair with mesh. He also makes mention of possible abdominal mesh placement at some point in time though they are unsure of this. Review of Systems Constitutional: Negative for chills, fever and weight loss. HENT: Positive for hearing loss and sore throat. Negative for congestion. Eyes: Negative for blurred vision. Respiratory: Positive for cough, shortness of breath and wheezing. Negative for stridor. Cardiovascular: Negative for chest pain and palpitations. Gastrointestinal: Positive for constipation (off/on). Negative for abdominal pain, blood in stool, diarrhea, heartburn, melena, nausea and vomiting. Genitourinary: Positive for frequency (self -catherized once a day at bedtime). Negative for dysuria and urgency. Musculoskeletal: Positive for back pain (Lower back). Negative for joint pain and neck pain. Skin: Positive for rash (around groin area). Negative for itching. Neurological: Negative for tingling and headaches. Endo/Heme/Allergies: Negative for environmental allergies. Bruises/bleeds easily. Psychiatric/Behavioral: Positive for depression. The patient is not nervous/anxious. 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 Hilliard. Coronary atherosclerosis of unspecified type of vessel, [place] or graft 06/13/2005 Diverticulitis of colon (without [...] 08/21/2023 Superficial occlusion of femoral artery (HCC) Symptom of leg swelling 12/12/2023 Tobacco use disorder 06/12/2005 Type II or unspecified type diabetes mellitus without mention of complication, not stated as uncontrolled 01/24/2011 Unspecified essential hypertension 06/12/2005 Venous insufficiency (chronic) (peripheral) 05/11/2015 PAST SURGICAL HISTORY Procedure Laterality Date APPENDECTOMY DONE W/OTHR MAJOR SURGERY 1998 With inguinal hernia repair [facility] INCL FLUOR GDNCE DX W/CELL WASHG SPX 09/12/2007 Bronchoscopy COLONOSCOPY FLX DX W/COLLJ SPEC WHEN PFRMD 01/2003 Colonoscopy COLONOSCOPY FLX DX W/COLLJ SPEC WHEN (more content not included)... [facility] (AGGENS3) DESIREE AMES ([id number]) 1935 Date Time Provider Department 02/26/24 JOSEMANUEL KIM AGGENS3 During your visit today, we recorded the following information about you: Allergies As of Date: 02/26/2024 Noted Allergy Reaction LEVAQUIN (LEVOFLOXACIN) 06/12/2005 4 - Hives FELODIPINE 06/12/2005 2 - Rash PLETAL (CILOSTAZOL) 01/23/2012 9 - Itching SULFA (SULFONAMIDE ANTIBIOTICS) 06/12/2005 9 - Itching Date Reviewed: 02/26/2024 Reviewed by: Josemanuel Kim MD - Fully Assessed Primary Visit Diagnosis:Mass of colon [K63.89] Order(s):COLONOSCOPY DIAGNOSTIC [GI11] Order #: [id number] FUTURE Prescriptions as of 02/26/2024 - insulin lispro (HUMALOG KWIKPEN INSULIN) 100 unit/mL Inject 15 Units subcutaneously three times a day before meals. - ELIQUIS 2.5 mg tab(s) Take 1 tablet by mouth every 12 hours. - budesonide-formoterol (SYMBICORT) 160-4.5 mcg/actuation inhaler inhale2 puffs BY MOUTH twice a day; administer with spacer, rinse mouth after each use] - FEROSUL 325 mg (65 mg iron) tablet Take 1 tablet by mouth every other day. - azithromycin (ZITHROMAX) 250 mg tablet - senna-docusate (SENNA-S) 8.6-50 mg per tablet Take 1 tablet by mouth two times a day. - SEMGLEE,INSULIN GLARG-YFGN,PEN 100 unit/mL (3 mL) insulin pen - UNIFINE PENTIPS 31 gauge x 1/4 ndle once daily. - meclizine (ANTIVERT) 25 mg tab meclizine hydrochloride 25 mg oral tablet (4 sources) Antiemetic Start: 09-13-2023 - clopidogrel (PLAVIX) 75 mg tablet Take 1 tablet by mouth once daily. - insulin glargine (LANTUS SOLOSTAR U-100 INSULIN) 100 unit/mL (3 mL) Inject 22 Units subcutaneously once daily. - amLODIPine (NORVASC) 10 mg tablet Take 10 mg by mouth once daily. - AMMONIUM LACTATE TOPICAL Apply to affected area as needed. Lotion - dapagliflozin propanediol (FARXIGA) 10 mg tablet Take 10 mg by mouth daily with breakfast. - spironolactone (ALDACTONE) 25 mg tablet Take 25 mg by mouth as needed. - ipratropium-albuterol (DUONEB) 0.5 mg-3 mg(2.5 mg base)/3 mL nebu 4 TIMES DAILY NEEDED - furosemide (LASIX) 40 mg tablet Take 40 mg by mouth once daily. - carvedilol (COREG) 25 mg tablet Take 1 tablet by mouth twice daily. Dr. Pierre. - hydrALAZINE (APRESOLINE) 100 mg tablet Take 100 mg by mouth two times a day. Dr. Pierre. - rOPINIRole (REQUIP) 0.5 mg tablet Take 1-3 tablets by mouth at bedtime as needed. Dr. Rivero - acetaminophen (TYLENOL) 500 mg tablet Take 500 mg by mouth every 6 hours as needed. - albuterol HFA (PROVENTIL HFA, VENTOLIN HFA) 90 mcg/actuation inhaler Inhale 2 Puffs as instructed. - montelukast (SINGULAIR) 10 mg tablet TAKE 1 TABLET BY MOUTH DAILY AT BEDTIME. FOR NASAL ALLERGIES. - isosorbide mononitrate ER (IMDUR) 30 mg 24 hr tablet Take 1 tablet by mouth once daily. - pantoprazole DR (PROTONIX) 40 mg tablet TAKE 1 TABLET BY MOUTH DAILY BEFORE BREAKFAST. TAKE ON EMPTY STOMACH, 1/2 HR BEFORE MEAL. - coenzyme Q10 (COENZYME Q-10) 100 mg cap capsule 100 mg once daily. - ascorbic acid, vitamin C, (VITAMIN C) 500 mg tablet Take 500 mg by mouth once daily. - blood sugar diagnostic (BLOOD GLUCOSE TEST) test strip Test blood sugar(s) 2 times daily. Dx: Type 2 DM - Uncontrolled E11.65 Insulin: No - cholecalciferol, vitamin D3, (VITAMIN D3 ORAL) Take 4,000 Units by mouth once daily. - ipratropium bromide (ATROVENT) 42 mcg (0.06 %) nasal spray Use 2 Sprays in the nose four times daily. - loratadine 10 mg cap Take by mouth once daily. - triamcinolone acetonide (NASACORT AQ) 55 mcg nasal inhaler Use 2 Sprays in the nose once daily. - atorvastatin (LIPITOR) 40 mg tablet Take 1 tablet by mouth every other day. At bedtime for cholesterol. - nitroglycerin sublingual (NITROSTAT) 0.4 mg SL tablet Dissolve 1 tablet under the tongue every 5 minutes as needed for Chest Pain. - Aspirin 81 mg ORAL Tab Take 1 tablet by mouth once daily. Take with food. Meds Comments as of 05/26/2022: 05/25/22 ALL [facility]OVASCULAR [facility] 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 [facility] CNPN Telephone (AGGENS3) DESIREE AMES ([id number]) 1935 M Date Time Provider Department 02/26/24 JOSEMANUEL KIM AGGENS3 During your visit today, we recorded the following information about you: Nancy Mckeon 02/26/2024 1:40 PM Signed Surgery Checklist Type: COLONOSCOPY Admission Type: outpatient Anesthesia: MAC Date: 03/05/24 Arrival Time: 9:30 AM Surgery Time: 10:30 AM Location: [place] Colonoscopy Prep given at appointment. Nancy Mckeon Allergies As of Date: 02/26/2024 Noted Allergy Reaction LEVAQUIN (LEVOFLOXACIN) 06/12/2005 4 - Hives FELODIPINE 06/12/2005 2 - Rash PLETAL (CILOSTAZOL) 01/23/2012 9 - Itching SULFA (SULFONAMIDE ANTIBIOTICS) 06/12/2005 9 - Itching Date Reviewed: 02/26/2024 Reviewed by: Josemanuel Kim MD - Fully Assessed Reason for Visit: Procedure [88] Cmt: COLONOSCOPY Prescriptions as of 02/26/2024 - insulin lispro (HUMALOG KWIKPEN INSULIN) 100 unit/mL Inject 15 Units subcutaneously three times a day before meals. - ELIQUIS 2.5 mg tab(s) Take 1 tablet by mouth every 12 hours. - budesonide-formoterol (SYMBICORT) 160-4.5 mcg/actuation inhaler inhale2 puffs BY MOUTH twice a day; administer with spacer, rinse mouth after each use] - FEROSUL 325 mg (65 mg iron) tablet Take 1 tablet by mouth every other day. - azithromycin (ZITHROMAX) 250 mg tablet - senna-docusate (SENNA-S) 8.6-50 mg per tablet Take 1 tablet by mouth two times a day. - SEMGLEE,INSULIN GLARG-YFGN,PEN 100 unit/mL (3 mL) insulin pen - UNIFINE PENTIPS 31 gauge x 1/4 ndle once daily. - meclizine (ANTIVERT) 25 mg tab meclizine hydrochloride 25 mg oral tablet (4 sources) Antiemetic Start: 09-13-2023 - clopidogrel (PLAVIX) 75 mg tablet Take 1 tablet by mouth once daily. - insulin glargine (LANTUS SOLOSTAR U-100 INSULIN) 100 unit/mL (3 mL) Inject 22 Units subcutaneously once daily. - amLODIPine (NORVASC) 10 mg tablet Take 10 mg by mouth once daily. - AMMONIUM LACTATE TOPICAL Apply to affected area as needed. Lotion - dapagliflozin propanediol (FARXIGA) 10 mg tablet Take 10 mg by mouth daily with breakfast. - spironolactone (ALDACTONE) 25 mg tablet Take 25 mg by mouth as needed. - ipratropium-albuterol (DUONEB) 0.5 mg-3 mg(2.5 mg base)/3 mL nebu 4 TIMES DAILY NEEDED - furosemide (LASIX) 40 mg tablet Take 40 mg by mouth once daily. - carvedilol (COREG) 25 mg tablet Take 1 tablet by mouth twice daily. Dr. Pierre. - hydrALAZINE (APRESOLINE) 100 mg tablet Take 100 mg by mouth two times a day. Dr. Pierre. - rOPINIRole (REQUIP) 0.5 mg tablet Take 1-3 tablets by mouth at bedtime as needed. Dr. Rivero - acetaminophen (TYLENOL) 500 mg tablet Take 500 mg by mouth every 6 hours as needed. - albuterol HFA (PROVENTIL HFA, VENTOLIN HFA) 90 mcg/actuation inhaler Inhale 2 Puffs as instructed. - montelukast (SINGULAIR) 10 mg tablet TAKE 1 TABLET BY MOUTH DAILY AT BEDTIME. FOR NASAL ALLERGIES. - isosorbide mononitrate ER (IMDUR) 30 mg 24 hr tablet Take 1 tablet by mouth once daily. - pantoprazole DR (PROTONIX) 40 mg tablet TAKE 1 TABLET BY MOUTH DAILY BEFORE BREAKFAST. TAKE ON EMPTY STOMACH, 1/2 HR BEFORE MEAL. - coenzyme Q10 (COENZYME Q-10) 100 mg cap capsule 100 mg once daily. - ascorbic acid, vitamin C, (VITAMIN C) 500 mg tablet Take 500 mg by mouth once daily. - blood sugar diagnostic (BLOOD GLUCOSE TEST) test strip Test blood sugar(s) 2 times daily. Dx: Type 2 DM - Uncontrolled E11.65 Insulin: No - cholecalciferol, vitamin D3, (VITAMIN D3 ORAL) Take 4,000 Units by mouth once daily. - ipratropium bromide (ATROVENT) 42 mcg (0.06 %) nasal spray Use 2 Sprays in the nose four times daily. - loratadine 10 mg cap Take by mouth once daily. - triamcinolone acetonide (NASACORT AQ) 55 mcg nasal inhaler Use 2 Sprays in the nose once daily. - atorvastatin (LIPITOR) 40 mg tablet Take 1 tablet by mouth every other day. At bedtime for cholesterol. - nitroglycerin sublingual (NITROSTAT) 0.4 mg SL tablet Dissolve 1 tablet under the tongue every 5 minutes as needed for Chest Pain. - Aspirin 81 mg ORAL Tab Take 1 tablet by mouth once daily. Take with food. Meds Comments as of 05/26/2022: 05/25/22 ALL [facility]ASCULAR medications [facility] from [facility] 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 [facility] DES[facility] AM[facility] ([id number]) 1935 M Date Time Provider Department 02/26/24 JOSEMANUEL KIM AGGENS3 During your visit today, we recorded the following information about you: Nancy Mckeon 02/26/2024 2:19 PM Signed Nephrology Clearance has been faxed to 's office. Nancy Kerr 03/03/2024 11:19 AM Signed Nephrology Clearance has been received and scanned into [employer]. Nancy Mckeon Allergies As of Date: 02/26/2024 Noted Allergy Reaction LEVAQUIN (LEVOFLOXACIN) 06/12/2005 4 - Hives FELODIPINE 06/12/2005 2 - Rash PLETAL (CILOSTAZOL) 01/23/2012 9 - Itching SULFA (SULFONAMIDE ANTIBIOTICS) 06/12/2005 9 - Itching Date Reviewed: 02/26/2024 Reviewed by: Josemanuel Kim MD - Fully Assessed Reason for Visit: Nephrology Clearance [Other] Prescriptions as of 03/03/2024 - insulin lispro (HUMALOG KWIKPEN INSULIN) 100 unit/mL Inject 15 Units subcutaneously three times a day before meals. - ELIQUIS 2.5 mg tab(s) Take 1 tablet by mouth every 12 hours. - budesonide-formoterol (SYMBICORT) 160-4.5 mcg/actuation inhaler inhale2 puffs BY MOUTH twice a day; administer with spacer, rinse mouth after each use] - FEROSUL 325 mg (65 mg iron) tablet Take 1 tablet by mouth every other day. - azithromycin (ZITHROMAX) 250 mg tablet - senna-docusate (SENNA-S) 8.6-50 mg per tablet Take 1 tablet by mouth two times a day. - SEMGLEE,INSULIN GLARG-YFGN,PEN 100 unit/mL (3 mL) insulin pen - UNIFINE PENTIPS 31 gauge x 1/4 ndle once daily. - meclizine (ANTIVERT) 25 mg tab meclizine hydrochloride 25 mg oral tablet (4 sources) Antiemetic Start: 09-13-2023 - clopidogrel (PLAVIX) 75 mg tablet Take 1 tablet by mouth once daily. - insulin glargine (LANTUS SOLOSTAR U-100 INSULIN) 100 unit/mL (3 mL) Inject 22 Units subcutaneously once daily. - amLODIPine (NORVASC) 10 mg tablet Take 10 mg by mouth once daily. - AMMONIUM LACTATE TOPICAL Apply to affected area as needed. Lotion - dapagliflozin propanediol (FARXIGA) 10 mg tablet Take 10 mg by mouth daily with breakfast. - spironolactone (ALDACTONE) 25 mg tablet Take 25 mg by mouth as needed. - ipratropium-albuterol (DUONEB) 0.5 mg-3 mg(2.5 mg base)/3 mL nebu 4 TIMES DAILY NEEDED - furosemide (LASIX) 40 mg tablet Take 80 mg by mouth two times a day. - carvedilol (COREG) 25 mg tablet Take 1 tablet by mouth twice daily. Dr. Pierre. - hydrALAZINE (APRESOLINE) 100 mg tablet Take 100 mg by mouth two times a day. Dr. Pierre. - rOPINIRole (REQUIP) 0.5 mg tablet Take 1-3 tablets by mouth at bedtime as needed. Dr. Rivero - acetaminophen (TYLENOL) 500 mg tablet Take 500 mg by mouth every 6 hours as needed. - albuterol HFA (PROVENTIL HFA, VENTOLIN HFA) 90 mcg/actuation inhaler Inhale 2 Puffs as instructed. - montelukast (SINGULAIR) 10 mg tablet TAKE 1 TABLET BY MOUTH DAILY AT BEDTIME. FOR NASAL ALLERGIES. - isosorbide mononitrate ER (IMDUR) 30 mg 24 hr tablet Take 1 tablet by mouth once daily. - pantoprazole DR (PROTONIX) 40 mg tablet TAKE 1 TABLET BY MOUTH DAILY BEFORE BREAKFAST. TAKE ON EMPTY STOMACH, 1/2 HR BEFORE MEAL. - coenzyme Q10 (COENZYME Q-10) 100 mg cap capsule 100 mg once daily. - ascorbic acid, vitamin C, (VITAMIN C) 500 mg tablet Take 500 mg by mouth once daily. - blood sugar diagnostic (BLOOD GLUCOSE TEST) test strip Test blood sugar(s) 2 times daily. Dx: Type 2 DM - Uncontrolled E11.65 Insulin: No - cholecalciferol, vitamin D3, (VITAMIN D3 ORAL) Take 4,000 Units by mouth once daily. - ipratropium bromide (ATROVENT) 42 mcg (0.06 %) nasal spray Use 2 Sprays in the nose four times daily. - loratadine 10 mg cap Take by mouth once daily. - triamcinolone acetonide (NASACORT AQ) 55 mcg nasal inhaler Use 2 Sprays in the nose once daily. - atorvastatin (LIPITOR) 40 mg tablet Take 1 tablet by mouth every other day. At bedtime for cholesterol. - nitroglycerin sublingual (NITROSTAT) 0.4 mg SL tablet Dissolve 1 tablet under the tongue every 5 minutes as needed for Chest Pain. - Aspirin 81 mg ORAL Tab Take 1 tablet by mouth once daily. Take with food. Meds Comments as of 05/26/2022: 05/25/22 ALL CARDIOVASCULAR medications [facility] from [facility] 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 [facility] Absolute lymphocyte countOrd ered By: Adelfo Obrien on 02-11-2024 Lymphocytes Auto (Unsp spec) [#/Vol] 1.26 10*3/uL 0.83-4.51 [facility] Automated lymphocyte count a s percentage of total leukocytesOrdered By: Adelfo Obrien on 02-11-2024 Lymphocytes/100 WBC Auto (Unsp spec) 16.0 % 19-41 [facility] Basophil percentageOrdered B y: Adelfo Obrien on 02-11-2024 Basophil percentage 5-10 SEEN /hpf 0-5 [facility] Basophil percentage 7.0 g/dL 13.0-16.5 [facility] Basophil percentage 302 mg/dL 74-106 [facility] Basophil percentage 134 mmol/L 136-145 [facility] Basophil percentage 4.7 mmol/L 3.5-5.1 [facility] Basophil percentage 101 mmol/L 98-107 [facility] Basophils (Bld) [#/Vol] 7.9 10*3/uL 4.4-11.0 [facility] Basophils (Bld) [#/Vol] 5.5 10*3/uL 2.0-7.7 [facility] Basophils/100 WBC (Bld) 69.1 % 47-70 [facility] Basophils/100 WBC (Bld) 12.4 % 0-10 [facility] Basophils/100 WBC (Bld) 1.1 % 0-5 [facility] Basophils/100 WBC (Bld) 0.6 % 0-1 [facility] Bilirubin Test strip Ql (U)O rdered By: Adelfo Obrien on 02-11-2024 Bilirubin Ql (U) Negative Negative [facility] Determination of erythrocyte mean corpuscular volume (MCV)Ordered By: Adelfo Obrien on 02-11-2024 MCV (RBC) [Entitic vol] 82.2 fL 80-94 [facility] Erythrocyte distribution wid th ratioOrdered By: Adelfo Obrien on 02-11-2024 Erythrocyte distribution width (RBC) [Ratio] 16.6 % 11.6-14.6 [facility] Erythrocyte distribution wid th standard deviationOrdered By: Adelfo Obrien on 02-11-2024 Erythrocyte distribution width (RBC) [Entitic vol] 49.7 fL 35.1-43.9 [facility] Hematocrit Auto (Bld) [Volum e fraction]Ordered By: Adelfo Obrien on 02-11-2024 Hematocrit (Bld) [Volume fraction] 24.4 % 40-54 [facility] Immature granulocytes/100 WB C Auto (Bld)Ordered By: Adelfo Obrien on 02-11-2024 Immature granulocytes/100 WBC (Bld) 0.800 % 0.0-0.9 [facility] Ketones Test strip Ql (U)Ord ered By: Adelfo Obrien on 02-11-2024 Ketones Ql (U) Negative Negative [facility] Mucus LM Ql (Urine sed)Order ed By: Adelfo Obrien on 02-11-2024 Mucus Ql (Urine sed) 1+ /hpf [facility] Nitrite Test strip Ql (U)Ord ered By: Adelfo Obrien on 02-11-2024 Nitrite Ql (U) Negative Negative [facility] No Panel InformationOrdered By: Adelfo Obrien on 02-11-2024 13 pg/mL 3.0-78.0 [facility] 0 SEEN /hpf 0-5 [facility] 23.6 pg 27.0-32.0 [facility] 28.7 g/dL 32-36 [facility] 308 K/mm3 150-450 [facility] 10.3 fl 6.2-12.0 [facility] 0 % 0-5 [facility] 23 mL/min >60 [facility] 28 mL/min >60 [facility] 21.68 ml/min [facility] 20.4 RATIO 10-20 [facility] 25.0 mmol/L 21.0-32.0 [facility] 643.5 pg/mL 0-100 [facility] Protein Test strip Ql (U)Ord ered By: Adelfo Obrien on 02-11-2024 Protein Ql (U) 15 mg/dl Negative [facility] RBC Auto (Bld) [#/Vol]Ordere d By: Aedlfo Obrien on 02-11-2024 RBC (Bld) [#/Vol] 2.97 10*6/uL 4.6-6.2 [facility] Serum or plasma calcium harley urement (mass/volume)Ordered By: Adelfo Obrien on 02-11-2024 Calcium [Mass/Vol] 8.6 mg/dL 8.5-10.1 oste [facility] Serum or plasma creatinine m easurement (mass/volume)Ordered By: Adelfo Obrien on 02-11-2024 Creatinine [Mass/Vol] 2.80 mg/dL 0.70-1.30 [facility] Serum or plasma urea nitroge n measurement (mass/volume)Ordered By: Adelfo Obrien on 02-11-2024 Urea nitrogen [Mass/Vol] 57 mg/dL 7-18 [facility] Squamous epithelial cells de tection in urine sediment by light microscopyOrdered By: Adelfo Obrien on 02-11-2024 Epithelial cells.squamous LM Ql (Urine sed) 0-5 SEEN /hpf 0-5 [facility] Thin prep Papanicolaou smear with manual screeningOrdered By: Adelfo Obrien on 02-11-2024 Thin prep Papanicolaou smear with manual screening 8 5-15 [facility] Urine blood detectionOrdered By: Adelfo Obrien on 02-11-2024 RBC Ql (U) Negative Negative [facility] Urine clarityOrdered By: Macario Obrien on 02-11-2024 Clarity (U) Sl. Cloudy Clear [facility] Urine color determinationOrd ered By: Adelfo Obrien on 02-11-2024 Color (U) Yellow Yellow [facility] Urine glucose detectionOrder ed By: Adelfo Obrien on 02-11-2024 Glucose Ql (U) Normal mg/dl Normal [facility] Urine leukocyte esterase det ection by dipstickOrdered By: Adelfo Obrien on 02-11-2024 Leukocyte esterase Test strip Ql (U) 500 /ul Negative [facility] Urine pHOrdered By: Adelfo ernst on 02-11-2024 pH (U) 6.5 [pH] 5.0 - 8.0 [facility] Urine sediment bacteria coun t by microscopy (number/high power field)Ordered By: Adelfo Obrien on 02-11-2024 Bacteria LM.HPF (Urine sed) [#/Area] 1 /[HPF] None Seen [facility] Urine specific gravity measu rementOrdered By: Adelfo Obrien on 02-11-2024 Specific gravity (U) [Rel density] 1.010 1.002-1.030 [facility] Urine urobilinogen measureme ntOrdered By: Adelfo Obrien on 02-11-2024 Urobilinogen Ql (U) Normal mg/dl Normal [facility] Albumin Elph [Mass/Vol]Order ed By: Jonny Abebe on 02-04-2024 Albumin [Mass/Vol] 3.0 g/dL 2.9-4.4 [facility] Basophil percentageOrdered B y: Jonny Abebe on 02-04-2024 Basophil percentage 146 mg/dL 74-106 [facility] Basophil percentage 136 mmol/L 136-145 [facility] Basophil percentage 3.7 mmol/L 3.5-5.1 [facility] Basophil percentage 100 mmol/L 98-107 [facility] No Panel InformationOrdered By: Jonny Abebe on 02-04-2024 Addendum Document Comment . [facility] 29 mL/min >60 [facility] 35 mL/min >60 [facility] 25.1 RATIO 10-20 [facility] 27.0 mmol/L 21.0-32.0 [facility] 0.2 g/dL 0.0-0.4 [facility] 0.8 g/dL 0.4-1.0 [facility] 1.0 g/dL 0.4-1.8 [facility] Protein Fractions Elph [Inte rp]Ordered By: Jonny Abebe on 02-04-2024 Protein Fractions [Interp] Comment . [facility] Serum albumin to globulin ra sharona by protein electrophoresisOrdered By: Jonny Abebe on 02-04-2024 Albumin/Globulin Elph [Mass ratio] 1.2 0.7-1.7 [facility] Serum globulin measurement ( mass/volume)Ordered By: Jonny Abebe on 02-04-2024 Globulin (S) [Mass/Vol] 2.6 g/dL 2.2-3.9 [facility] Serum or plasma beta globuli n measurement by electrophoresis (mass/volume)Ordered By: Jonny Abebe on 02-04-2024 Beta globulin Elph [Mass/Vol] 0.7 g/dL 0.7-1.3 [facility] Serum or plasma calcium harley urement (mass/volume)Ordered By: Jonny Abebe on 02-04-2024 Calcium [Mass/Vol] 9.1 mg/dL 8.5-10.1 [facility] Serum or plasma creatinine m easurement (mass/volume)Ordered By: Jonny Abebe on 02-04-2024 Creatinine [Mass/Vol] 2.31 mg/dL 0.70-1.30 [facility] Serum or plasma protein mono clonal measurement by electrophoresis (mass/volume)Ordered By: Jonny Abebe on 02-04-2024 Protein.monoclonal Elph [Mass/Vol] 0.5 g/dL Not Observed [facility] Serum or plasma urea nitroge n measurement (mass/volume)Ordered By: Jonny Abebe on 02-04-2024 Urea nitrogen [Mass/Vol] 58 mg/dL 7-18 [facility] Thin prep Papanicolaou smear with manual screeningOrdered By: Jonny Abebe on 02-04-2024 Thin prep Papanicolaou smear with manual screening 10.7 mg/dL 0.0-11.8 [facility] Thin prep Papanicolaou smear with manual screening 9 5-15 [facility] Total protein bloodOrdered B y: Jonny Abebe on 02-04-2024 Protein [Mass/Vol] 5.6 g/dL 6.0-8.5 [facility] Urine creatinine measurement (mass/volume)Ordered By: Jonny Abebe on 02-04-2024 Creatinine (U) [Mass/Vol] 35.10 mg/dL NO RANGE EST. [facility] Urine protein/creatinine mas s ratioOrdered By: Jonny Abebe on 02-04-2024 Protein/Creatinine (U) [Mass ratio] 305 mg/g CRE 0-200 [facility] Absolute lymphocyte countOrd ered By: Fernandez Santana on 01-29-2024 Lymphocytes Auto (Unsp spec) [#/Vol] 1.19 10*3/uL 0.83-4.51 [facility] Automated lymphocyte count a s percentage of total leukocytesOrdered By: Fernandez Santana on 01-29-2024 Lymphocytes/100 WBC Auto (Unsp spec) 17.2 % 19-41 [facility] Basophil percentageOrdered B y: Fernandez Santana on 01-29-2024 Basophil percentage 7.2 g/dL 13.0-16.5 [facility] Basophil percentage 166 mg/dL 74-106 [facility] Basophil percentage 135 mmol/L 136-145 [facility] Basophil percentage 4.0 mmol/L 3.5-5.1 [facility] Basophil percentage 99 mmol/L 98-107 [facility] Basophils (Bld) [#/Vol] 6.9 10*3/uL 4.4-11.0 [facility] Basophils (Bld) [#/Vol] 5.1 10*3/uL 2.0-7.7 [facility] Basophils/100 WBC (Bld) 73.3 % 47-70 [facility] Basophils/100 WBC (Bld) 8.7 % 0-10 [facility] Basophils/100 WBC (Bld) 0.4 % 0-5 [facility] Basophils/100 WBC (Bld) 0.1 % 0-1 [facility] Determination of erythrocyte mean corpuscular volume (MCV)Ordered By: Fernandez Santana on 01-29-2024 MCV (RBC) [Entitic vol] 86.2 fL 80-94 [facility] Erythrocyte distribution wid th ratioOrdered By: Fernandez Santana on 01-29-2024 Erythrocyte distribution width (RBC) [Ratio] 16.5 % 11.6-14.6 [facility] Erythrocyte distribution wid th standard deviationOrdered By: Fernandez Santana on 01-29-2024 Erythrocyte distribution width (RBC) [Entitic vol] 50.4 fL 35.1-43.9 [facility] Hematocrit Auto (Bld) [Volum e fraction]Ordered By: Fernandez Santana on 01-29-2024 Hematocrit (Bld) [Volume fraction] 24.9 % 40-54 [facility] Hemoglobin in reticulocytes (mass per reticulocyte)Ordered By: Fernandez Santana on 01-29-2024 Hemoglobin (Reticulocytes) [Entitic mass] 23.8 pg 30-35 [facility] Immature granulocytes/100 WB C Auto (Bld)Ordered By: Fernandez Santana on 01-29-2024 Immature granulocytes/100 WBC (Bld) 0.300 % 0.0-0.9 [facility] Iron measurement (mass/mass) Ordered By: Fernandez Santana on 01-29-2024 Iron (Unsp spec) [Mass/Mass] 9 ug/dL 65-175 [facility] No Panel InformationOrdered By: Fernandez Santana on 01-29-2024 24.9 pg 27.0-32.0 [facility] 28.9 g/dL 32-36 [facility] 301 K/mm3 150-450 [facility] 11.1 fl 6.2-12.0 [facility] 0 % 0-5 [facility] 35.50 % 3.00-15.90 [facility] 26 mL/min >60 [facility] 32 mL/min >60 [facility] 24.10 ml/min [facility] 20.2 RATIO 10-20 [facility] 29.0 mmol/L 21.0-32.0 [facility] 308 ug/dL 250-450 [facility] 24 ng/mL 26-388 [facility] RBC Auto (Bld) [#/Vol]Ordere d By: Fernandez Santana on 01-29-2024 RBC (Bld) [#/Vol] 2.89 10*6/uL 4.6-6.2 [facility] Reticulocytes Auto (Bld) [#/ Vol]Ordered By: Fernandez Santana on 01-29-2024 Reticulocytes/100 RBC (Bld) 3.04 % 0.5-1.5 [facility] Serum or plasma calcium harley urement (mass/volume)Ordered By: Fernandez Santana on 01-29-2024 Calcium [Mass/Vol] 9.1 mg/dL 8.5-10.1 [facility] Serum or plasma creatinine m easurement (mass/volume)Ordered By: Fernandez Santana on 01-29-2024 Creatinine [Mass/Vol] 2.48 mg/dL 0.70-1.30 [facility] Serum or plasma iron saturat ion measurement (mass fraction)Ordered By: Fernandez Santana on 01-29-2024 Iron saturation [Mass fraction] 2.9 % 15.0-55.0 [facility] Serum or plasma urea nitroge n measurement (mass/volume)Ordered By: Fernandez Santana on 01-29-2024 Urea nitrogen [Mass/Vol] 50 mg/dL 7-18 [facility] Thin prep Papanicolaou smear with manual screeningOrdered By: Fernandez Santana on 01-29-2024 Thin prep Papanicolaou smear with manual screening 169 mg/dL 74-106 [facility] Thin prep Papanicolaou smear with manual screening 7 5-15 [facility] Basophil percentageOrdered B y: Hansel Gillis on 01-27-2024 Basophil percentage 6.3 g/dL 6.4-8.2 [facility] Basophil percentage 3.2 mg/dL 2.5-4.9 [facility] Basophil percentage 0.40 mg/dL 0.20-1.00 [facility] Direct bilirubinOrdered By: Hansel Gillis on 01-27-2024 Bilirubin.direct [Mass/Vol] 0.13 mg/dL 0.00-0.30 [facility] No Panel InformationOrdered By: Hansel Gillis on 01-27-2024 18.2 SECONDS 11.7-14.9 [facility] 1.5 [facility] 3.4 g/dL 2.2-4.2 [facility] 0.9 RATIO 0.9-2.4 [facility] 69 U/L 45-117 [facility] 25 U/L 16-61 [facility] 2.0 mg/dL 1.6-2.6 [facility] Serum or plasma thyroid stim ulating hormone (TSH) measurement (units/volume)Ordered By: Hansel Gillis on 01-27-2024 TSH Qn 2.57 uIU/mL 0.358-3.74 [facility] Thin prep Papanicolaou smear with manual screeningOrdered By: Hasnel Gillis on 01-27-2024 Thin prep Papanicolaou smear with manual screening 2.9 g/dL 3.2-5.0 [facility] Thin prep Papanicolaou smear with manual screening 19 U/L 15-37 [facility] Absolute lymphocyte countOrd ered By: Aaliyah Collins on 01-26-2024 Lymphocytes Auto (Unsp spec) [#/Vol] 1.10 10*3/uL 0.83-4.51 [facility] Automated lymphocyte count a s percentage of total leukocytesOrdered By: Aaliyah Collins on 01-26-2024 Lymphocytes/100 WBC Auto (Unsp spec) 18.5 % 19-41 [facility] Basophil percentageOrdered B y: Aaliyah Collins on 01-26-2024 Basophil percentage 7.6 g/dL 13.0-16.5 [facility] Basophil percentage 282 mg/dL 74-106 [facility] Basophil percentage 137 mmol/L 136-145 [facility] Basophil percentage 3.8 mmol/L 3.5-5.1 [facility] Basophil percentage 98 mmol/L 98-107 [facility] Basophils (Bld) [#/Vol] 6.0 10*3/uL 4.4-11.0 [facility] Basophils (Bld) [#/Vol] 4.1 10*3/uL 2.0-7.7 [facility] Basophils/100 WBC (Bld) 68.3 % 47-70 [facility] Basophils/100 WBC (Bld) 10.2 % 0-10 [facility] Basophils/100 WBC (Bld) 2.2 % 0-5 [facility] Basophils/100 WBC (Bld) 0.3 % 0-1 [facility] Determination of erythrocyte mean corpuscular volume (MCV)Ordered By: Aaliyah Collins on 01-26-2024 MCV (RBC) [Entitic vol] 85.9 fL 80-94 [facility] Erythrocyte distribution wid th ratioOrdered By: Aaliyah Collins on 01-26-2024 Erythrocyte distribution width (RBC) [Ratio] 17.1 % 11.6-14.6 [facility] Erythrocyte distribution wid th standard deviationOrdered By: Aaliyah Collins on 01-26-2024 Erythrocyte distribution width (RBC) [Entitic vol] 53.1 fL 35.1-43.9 [facility] Hematocrit Auto (Bld) [Volum e fraction]Ordered By: Aaliyah Collins on 01-26-2024 Hematocrit (Bld) [Volume fraction] 26.2 % 40-54 [facility] Immature granulocytes/100 WB C Auto (Bld)Ordered By: Aaliyah Collins on 01-26-2024 Immature granulocytes/100 WBC (Bld) 0.500 % 0.0-0.9 [facility] No Panel InformationOrdered By: Aaliyah Collins on 01-26-2024 24.9 pg 27.0-32.0 [facility] 29.0 g/dL 32-36 [facility] 257 K/mm3 150-450 [facility] 10.5 fl 6.2-12.0 [facility] 0 % 0-5 [facility] 29 mL/min >60 [facility] 35 mL/min >60 [facility] 26.32 ml/min [facility] 15.2 RATIO 10-20 [facility] 15 pg/mL 3.0-78.0 [facility] 32.0 mmol/L 21.0-32.0 [facility] 790.9 pg/mL 0-100 [facility] RBC Auto (Bld) [#/Vol]Ordere d By: Aaliyah Collins on 01-26-2024 RBC (Bld) [#/Vol] 3.05 10*6/uL 4.6-6.2 [facility] Serum or plasma calcium harley urement (mass/volume)Ordered By: Aaliyah Collins on 01-26-2024 Calcium [Mass/Vol] 8.8 mg/dL 8.5-10.1 [facility] Serum or plasma creatinine m easurement (mass/volume)Ordered By: Aaliyah Collins on 01-26-2024 Creatinine [Mass/Vol] 2.30 mg/dL 0.70-1.30 [facility] Serum or plasma urea nitroge n measurement (mass/volume)Ordered By: Aaliyah Collins on 01-26-2024 Urea nitrogen [Mass/Vol] 35 mg/dL 7-18 [facility] Thin prep Papanicolaou smear with manual screeningOrdered By: Aaliyah Collins on 01-26-2024 Thin prep Papanicolaou smear with manual screening 7 5-15 [facility] Whole blood hemoglobin A1c/t otal hemoglobin ratio (mass fraction)Ordered By: Hansel Gillis on 01-26-2024 HbA1c (Bld) [Mass fraction] 8.6 % 3.8-5.6 [facility] Absolute lymphocyte countOrd ered By: Joanna Negron on 01-16-2024 Lymphocytes Auto (Unsp spec) [#/Vol] 1.66 10*3/uL 0.83-4.51 [facility] Automated lymphocyte count a s percentage of total leukocytesOrdered By: Joanna Negron on 01-16-2024 Lymphocytes/100 WBC Auto (Unsp spec) 21.3 % 19-41 [facility] Basophil percentageOrdered B y: Joanna Negron on 01-16-2024 Basophil percentage 8.3 g/dL 13.0-16.5 [facility] Basophils (Bld) [#/Vol] 7.8 10*3/uL 4.4-11.0 [facility] Basophils (Bld) [#/Vol] 5.3 10*3/uL 2.0-7.7 [facility] Basophils/100 WBC (Bld) 67.5 % 47-70 [facility] Basophils/100 WBC (Bld) 8.6 % 0-10 [facility] Basophils/100 WBC (Bld) 1.7 % 0-5 [facility] Basophils/100 WBC (Bld) 0.4 % 0-1 [facility] Determination of erythrocyte mean corpuscular volume (MCV)Ordered By: Joanna Negron on 01-16-2024 MCV (RBC) [Entitic vol] 84.9 fL 80-94 [facility] Erythrocyte distribution wid th ratioOrdered By: Joanna Negron on 01-16-2024 Erythrocyte distribution width (RBC) [Ratio] 17.4 % 11.6-14.6 [facility] Erythrocyte distribution wid th standard deviationOrdered By: Joanna Negron on 01-16-2024 Erythrocyte distribution width (RBC) [Entitic vol] 53.8 fL 35.1-43.9 [facility] Hematocrit Auto (Bld) [Volum e fraction]Ordered By: Joanna Negron on 01-16-2024 Hematocrit (Bld) [Volume fraction] 29.3 % 40-54 [facility] Immature granulocytes/100 WB C Auto (Bld)Ordered By: Joanna Negron on 01-16-2024 Immature granulocytes/100 WBC (Bld) 0.500 % 0.0-0.9 [facility] No Panel InformationOrdered By: Joanna Negron on 01-16-2024 24.1 pg 27.0-32.0 [facility] 28.3 g/dL 32-36 [facility] 247 K/mm3 150-450 [facility] 10.4 fl 6.2-12.0 [facility] 0 % 0-5 [facility] RBC Auto (Bld) [#/Vol]Ordere d By: Joanna Negron on 01-16-2024 RBC (Bld) [#/Vol] 3.45 10*6/uL 4.6-6.2 [facility] Basophil percentageOrdered B y: Marguerite Jennings on 01-07-2024 Basophil percentage 268 mg/dL 74-106 [facility] Basophil percentage 137 mmol/L 136-145 [facility] Basophil percentage 3.6 mmol/L 3.5-5.1 [facility] Basophil percentage 100 mmol/L 98-107 [facility] Bilirubin Test strip Ql (U)O rdered By: Joanna Negron on 01-07-2024 Bilirubin Ql (U) Negative Negative [facility] Ketones Test strip Ql (U)Ord ered By: Joanna Negron on 01-07-2024 Ketones Ql (U) Negative Negative [facility] Nitrite Test strip Ql (U)Ord ered By: Joanna Negron on 01-07-2024 Nitrite Ql (U) Negative Negative [facility] No Panel InformationOrdered By: Marguerite Jennings on 01-07-2024 32 mL/min >60 [facility] 39 mL/min >60 [facility] 23.0 RATIO 10-20 [facility] 28.0 mmol/L 21.0-32.0 [facility] Protein Test strip Ql (U)Ord ered By: Joanna Negron on 01-07-2024 Protein Ql (U) 15 mg/dl Negative [facility] Serum or plasma calcium harley urement (mass/volume)Ordered By: Marguerite Jennings on 01-07-2024 Calcium [Mass/Vol] 9.4 mg/dL 8.5-10.1 [facility] Serum or plasma creatinine m easurement (mass/volume)Ordered By: Marguerite Jennings on 01-07-2024 Creatinine [Mass/Vol] 2.09 mg/dL 0.70-1.30 [facility] Serum or plasma urea nitroge n measurement (mass/volume)Ordered By: Marguerite Jennings on 01-07-2024 Urea nitrogen [Mass/Vol] 48 mg/dL 7-18 [facility] Thin prep Papanicolaou smear with manual screeningOrdered By: Marguerite Jennings on 01-07-2024 Thin prep Papanicolaou smear with manual screening 9 5-15 [facility] Urine blood detectionOrdered By: Joanna Negron on 01-07-2024 RBC Ql (U) Negative Negative [facility] Urine clarityOrdered By: Nita Negron on 01-07-2024 Clarity (U) Clear Clear [facility] Urine color determinationOrd ered By: Joanna Negron on 01-07-2024 Color (U) Yellow Yellow [facility] Urine glucose detectionOrder ed By: Joanna Negron on 01-07-2024 Glucose Ql (U) 100 mg/dl Normal [facility] Urine leukocyte esterase det ection by dipstickOrdered By: Joanna Negron on 01-07-2024 Leukocyte esterase Test strip Ql (U) 500 /ul Negative [facility] Urine pHOrdered By: Joanna stover on 01-07-2024 pH (U) 6.5 [pH] 5.0 - 8.0 [facility] Urine specific gravity measu rementOrdered By: Joanna Negron on 01-07-2024 Specific gravity (U) [Rel density] 1.010 1.002-1.030 [facility] Urine urobilinogen measureme ntOrdered By: Joanna Negron on 01-07-2024 Urobilinogen Ql (U) Normal mg/dl Normal [facility] No Panel Informationon 01-01 Yellow [facility] Clear [facility] Negative [facility] Small (15+) [facility] 1.020 [facility] 6 [facility] Positive [facility] 8.0 % 4.2-6.3 [facility] Absolute lymphocyte countOrd ered By: Joanna Negron on 12-27-2023 Lymphocytes Auto (Unsp spec) [#/Vol] 0.66 10*3/uL 0.83-4.51 [facility] Automated lymphocyte count a s percentage of total leukocytesOrdered By: Joanna Negron on 12-27-2023 Lymphocytes/100 WBC Auto (Unsp spec) 9.7 % 19-41 [facility] Basophil percentageOrdered B y: Joanna Jamil on 12-27-2023 Basophil percentage 7.4 g/dL 13.0-16.5 [facility] Basophils (Bld) [#/Vol] 6.8 10*3/uL 4.4-11.0 [facility] Basophils (Bld) [#/Vol] 5.7 10*3/uL 2.0-7.7 [facility] Basophils/100 WBC (Bld) 84.2 % 47-70 [facility] Basophils/100 WBC (Bld) 4.4 % 0-10 [facility] Basophils/100 WBC (Bld) 1.2 % 0-5 [facility] Basophils/100 WBC (Bld) 0.1 % 0-1 [facility] Basophil percentageOrdered B y: Marguerite Jennings on 12-27-2023 Basophil percentage 248 mg/dL 74-106 [facility] Basophil percentage 134 mmol/L 136-145 [facility] Basophil percentage 4.4 mmol/L 3.5-5.1 [facility] Basophil percentage 102 mmol/L 98-107 [facility] Determination of erythrocyte mean corpuscular volume (MCV)Ordered By: Joanna Negron on 12-27-2023 MCV (RBC) [Entitic vol] 84.3 fL 80-94 [facility] Erythrocyte distribution wid th ratioOrdered By: Joanna Negron on 12-27-2023 Erythrocyte distribution width (RBC) [Ratio] 17.7 % 11.6-14.6 [facility] Erythrocyte distribution wid th standard deviationOrdered By: Joanna Negron on 12-27-2023 Erythrocyte distribution width (RBC) [Entitic vol] 54.2 fL 35.1-43.9 [facility] [facility] Hemat[facility] Auto (Bld) [Volum e fraction]Ordered By: Joanna Negron on 12-27-2023 Hematocrit (Bld) [Volume fraction] 25.3 % 40-54 [facility] Immature granulocytes/100 WB C Auto (Bld)Ordered By: Joanna Negron on 12-27-2023 Immature granulocytes/100 WBC (Bld) 0.400 % 0.0-0.9 [facility] No Panel InformationOrdered By: Joanna Negron on 12-27-2023 24.7 pg 27.0-32.0 [facility] 29.2 g/dL 32-36 [facility] 360 K/mm3 150-450 [facility] 11.1 fl 6.2-12.0 [facility] 0.3 % 0-5 [facility] No Panel InformationOrdered By: Marguerite Jennings on 12-27-2023 27 mL/min >60 [facility] 33 mL/min >60 [facility] 21.0 RATIO 10-20 [facility] 24.0 mmol/L 21.0-32.0 [facility] 792.3 pg/mL 0-100 [facility] RBC Auto (Bld) [#/Vol]Ordere d By: Joanna Negron on 12-27-2023 RBC (Bld) [#/Vol] 3.00 10*6/uL 4.6-6.2 [facility] Serum or plasma calcium harley urement (mass/volume)Ordered By: Marguerite Jennings on 12-27-2023 Calcium [Mass/Vol] 8.9 mg/dL 8.5-10.1 [facility] Serum or plasma creatinine m easurement (mass/volume)Ordered By: Marguerite Jennings on 12-27-2023 Creatinine [Mass/Vol] 2.43 mg/dL 0.70-1.30 [facility] Serum or plasma urea nitroge n measurement (mass/volume)Ordered By: Marguerite Jennings on 12-27-2023 Urea nitrogen [Mass/Vol] 51 mg/dL 7-18 [facility] Thin prep Papanicolaou smear with manual screeningOrdered By: Marguerite Jennings on 12-27-2023 Thin prep Papanicolaou smear with manual screening 8 5-15 [facility] Stool gastrointestinal hemog lobin detection by immunologic methodOrdered By: Joanna Negron on 12-21-2023 Lower GI hemoglobin IA Ql (Stl) [facility] Absolute lymphocyte countOrd ered By: Joanna Negron on 12-19-2023 Lymphocytes Auto (Unsp spec) [#/Vol] 1.13 10*3/uL 0.83-4.51 [facility] Automated lymphocyte count a s percentage of total leukocytesOrdered By: Joanna Negron on 12-19-2023 Lymphocytes/100 WBC Auto (Unsp spec) 15.9 % 19-41 [facility] Basophil percentageOrdered B y: Joanna Negron on 12-19-2023 Basophil percentage 7.8 g/dL 13.0-16.5 [facility] Basophils (Bld) [#/Vol] 7.1 10*3/uL 4.4-11.0 [facility] Basophils (Bld) [#/Vol] 5.1 10*3/uL 2.0-7.7 [facility] Basophils/100 WBC (Bld) 72.0 % 47-70 [facility] Basophils/100 WBC (Bld) 9.4 % 0-10 [facility] Basophils/100 WBC (Bld) 2.0 % 0-5 [facility] Basophils/100 WBC (Bld) 0.4 % 0-1 [facility] Determination of erythrocyte mean corpuscular volume (MCV)Ordered By: Joanna Negron on 12-19-2023 MCV (RBC) [Entitic vol] 83.1 fL 80-94 [facility] Erythrocyte distribution wid th ratioOrdered By: Joanna Negron on 12-19-2023 Erythrocyte distribution width (RBC) [Ratio] 16.0 % 11.6-14.6 [facility] Erythrocyte distribution wid th standard deviationOrdered By: Joanna Negron on 12-19-2023 Erythrocyte distribution width (RBC) [Entitic vol] 48.3 fL 35.1-43.9 [facility] Hematocrit Auto (Bld) [Volum e fraction]Ordered By: Joanna Negron on 12-19-2023 Hematocrit (Bld) [Volume fraction] 26.5 % 40-54 [facility] Immature granulocytes/100 WB C Auto (Bld)Ordered By: Joanna Negron on 12-19-2023 Immature granulocytes/100 WBC (Bld) 0.300 % 0.0-0.9 [facility] No Panel InformationOrdered By: Joanna Negron on 12-19-2023 24.5 pg 27.0-32.0 [facility] 29.4 g/dL 32-36 [facility] 181 K/mm3 150-450 [facility] 11.0 fl 6.2-12.0 [facility] 0 % 0-5 [facility] RBC Auto (Bld) [#/Vol]Ordere d By: Joanna Negron on 12-19-2023 RBC (Bld) [#/Vol] 3.19 10*6/uL 4.6-6.2 [facility] Basophil percentageOrdered B y: Joanna Negron on 12-16-2023 Basophil percentage 7.7 g/dL 13.0-16.5 [facility] Basophil percentage 173 mg/dL 74-106 [facility] Basophil percentage 137 mmol/L 136-145 [facility] Basophil percentage 3.9 mmol/L 3.5-5.1 [facility] Basophil percentage 104 mmol/L 98-107 [facility] Basophils (Bld) [#/Vol] 8.6 10*3/uL 4.4-11.0 [facility] Determination of erythrocyte mean corpuscular volume (MCV)Ordered By: Joanna Negron on 12-16-2023 MCV (RBC) [Entitic vol] 91.5 fL 80-94 [facility] Erythrocyte distribution wid th ratioOrdered By: Joanna Negron on 12-16-2023 Erythrocyte distribution width (RBC) [Ratio] 17.4 % 11.6-14.6 [facility] Erythrocyte distribution wid th standard deviationOrdered By: Joanna Negron on 12-16-2023 Erythrocyte distribution width (RBC) [Entitic vol] 48.4 fL 35.1-43.9 [facility] Hematocrit Auto (Bld) [Volum e fraction]Ordered By: Joanna Negron on 12-16-2023 Hematocrit (Bld) [Volume fraction] 21.4 % 40-54 [facility] Iron measurement (mass/mass) Ordered By: Joanna Negron on 12-16-2023 Iron (Unsp spec) [Mass/Mass] 25 ug/dL 65-175 [facility] No Panel InformationOrdered By: Joanna Negron on 12-16-2023 32.9 pg 27.0-32.0 [facility] 36.0 g/dL 32-36 [facility] 214 K/mm3 150-450 [facility] 10.5 fl 6.2-12.0 [facility] 30 mL/min >60 [facility] 36 mL/min >60 [facility] 19.2 RATIO 10-20 [facility] 27.0 mmol/L 21.0-32.0 [facility] 369 pg/mL 211-911 [facility] 310 ug/dL 250-450 [facility] 25 ng/mL 26-388 [facility] 16.30 ng/mL 3.1-55.4 [facility] RBC Auto (Bld) [#/Vol]Ordere d By: Joanna Negron on 12-16-2023 RBC (Bld) [#/Vol] 2.34 10*6/uL 4.6-6.2 [facility] Serum or plasma calcium harley urement (mass/volume)Ordered By: Joanna Negron on 12-16-2023 Calcium [Mass/Vol] 8.7 mg/dL 8.5-10.1 [facility] Serum or plasma creatinine m easurement (mass/volume)Ordered By: Joanna Negron on 12-16-2023 Creatinine [Mass/Vol] 2.24 mg/dL 0.70-1.30 [facility] Serum or plasma urea nitroge n measurement (mass/volume)Ordered By: Joanna Negron on 12-16-2023 Urea nitrogen [Mass/Vol] 43 mg/dL 7-18 [facility] Thin prep Papanicolaou smear with manual screeningOrdered By: Joanna Negron on 12-16-2023 Thin prep Papanicolaou smear with manual screening 6 5-15 [facility] Absolute lymphocyte countOrd ered By: Dinesh Comer on 12-02-2023 Lymphocytes Auto (Unsp spec) [#/Vol] 1.37 10*3/uL 0.83-4.51 [facility] Automated lymphocyte count a s percentage of total leukocytesOrdered By: Dinesh Comer on 12-02-2023 Lymphocytes/100 WBC Auto (Unsp spec) 22.5 % 19-41 [facility] Basophil percentageOrdered B y: Dinesh Comer on 12-02-2023 Basophil percentage 8.0 g/dL 13.0-16.5 [facility] Basophil percentage 152 mg/dL 74-106 [facility] Basophil percentage 139 mmol/L 136-145 [facility] Basophil percentage 4.0 mmol/L 3.5-5.1 [facility] Basophil percentage 109 mmol/L 98-107 [facility] Basophils (Bld) [#/Vol] 6.1 10*3/uL 4.4-11.0 [facility] Basophils (Bld) [#/Vol] 3.7 10*3/uL 2.0-7.7 [facility] Basophils/100 WBC (Bld) 60.1 % 47-70 [facility] Basophils/100 WBC (Bld) 12.8 % 0-10 [facility] Basophils/100 WBC (Bld) 3.3 % 0-5 [facility] Basophils/100 WBC (Bld) 0.8 % 0-1 [facility] Determination of erythrocyte mean corpuscular volume (MCV)Ordered By: Dinesh Comer on 12-02-2023 MCV (RBC) [Entitic vol] 84.6 fL 80-94 [facility] Erythrocyte distribution wid th ratioOrdered By: Dinesh Comer on 12-02-2023 Erythrocyte distribution width (RBC) [Ratio] 15.6 % 11.6-14.6 [facility] Erythrocyte distribution wid th standard deviationOrdered By: Dinesh Comer on 12-02-2023 Erythrocyte distribution width (RBC) [Entitic vol] 47.3 fL 35.1-43.9 [facility] Hematocrit Auto (Bld) [Volum e fraction]Ordered By: Dinesh Comer on 12-02-2023 Hematocrit (Bld) [Volume fraction] 27.0 % 40-54 [facility] Immature granulocytes/100 WB C Auto (Bld)Ordered By: Dinesh Comer on 12-02-2023 Immature granulocytes/100 WBC (Bld) 0.500 % 0.0-0.9 [facility] No Panel InformationOrdered By: Dinesh Comer on 12-02-2023 25.1 pg 27.0-32.0 [facility] 29.6 g/dL 32-36 [facility] 438 K/mm3 150-450 [facility] 10.3 fl 6.2-12.0 [facility] 0 % 0-5 [facility] 3.12 FEU/ug/m 0.27-0.49 [facility] 33 mL/min >60 [facility] 40 mL/min >60 [facility] 29.08 ml/min [facility] 17.3 RATIO 10-20 [facility] 21 pg/mL 3.0-78.0 [facility] 24.0 mmol/L 21.0-32.0 [facility] 693.8 pg/mL 0-100 [facility] RBC Auto (Bld) [#/Vol]Ordere d By: Dinesh Comer on 12-02-2023 RBC (Bld) [#/Vol] 3.19 10*6/uL 4.6-6.2 [facility] Serum or plasma calcium harley urement (mass/volume)Ordered By: Dinesh Comer on 12-02-2023 Calcium [Mass/Vol] 9.1 mg/dL 8.5-10.1 [facility] Serum or plasma creatinine m easurement (mass/volume)Ordered By: Dinesh Comer on 12-02-2023 Creatinine [Mass/Vol] 2.02 mg/dL 0.70-1.30 [facility] Serum or plasma urea nitroge n measurement (mass/volume)Ordered By: Dinesh Comer on 12-02-2023 Urea nitrogen [Mass/Vol] 35 mg/dL 7-18 [facility] Thin prep Papanicolaou smear with manual screeningOrdered By: Dinesh Comer on 12-02-2023 Thin prep Papanicolaou smear with manual screening 6 5-15 [facility] CNOVon 11-25-2023 CNOV Office Visit ([facility]) DESIREE AMES ([id number]) 1935 M Date Time Provider Department 11/25/23 11:00 AM RENE ZAPATA During your visit today, we recorded the following information about you: Pulse Respiration Blood pressure Weight 62/minute 16/minute 124/66 88.5 kg Height 1.727 m Rene Zapata MD 11/25/2023 5:50 PM Signed Surgery/Procedure Date: 11/12/2023 Surgeon(s)/Proceduralis t(s) and Medical Insurance Coder(s): Surgeon(s) and Role: * Rene Zapata MD - Primary * Oscar Sifuentes MD - Resident - Assisting Procedure(s): Left ileofemoral endarterectomy and bovine patch profundaplasty Left lower extremity angiogram Intraoperative duplex ultrasound of patch repair [facility] EST[facility]LISHED CLINIC VISIT Desiree Ames [id number] HPI: Mr. Ames is a 88 year old male seen [...] Recent Surgeries this specialty 11/12/2023 (1w, 6d) THROMBOENDARTERECTOMY,W / PATCH GRAFT; ILIOFEMORAL (Left) Rene Zapata MD; Oscar Sifuentes MD - Posted 09/06/2023 (11w, 3d) ANGIOGRAM EXTREMITY UNILATERAL RADIOLOGICAL (Left) Rene Zapata MD - Posted MEDICATIONS: senna-docusate (SENNA-S) 8.6-50 [...] quittin.8 Smokeless tobacco: Never Vaping Use Vaping (more content not included)... Normal [facility] [place] 11-22-2023 [facility] Telephone (J LUIS) DESIREE AMES ([id number]) 1935 M Date Time Provider Department 11/22/23 RENE ZAPATA During your visit today, we recorded the following information about you: Jessica Bentley LPN 11/22/2023 8:46 AM Signed Post Note: Patient calling in requesting return [...] medical facility. Patient states he lives in [place]. This Nurse advised patient to go to the closest hospital where someone can have eyes on him and someone look at his foot and proper evaluation/assessment and diagnostics can be done. This can't be done over the phone. Patient states that he will just wait until his upcoming appointment. Jessica Bentley LPN November 21, 2023 4:51 PM Bijal Zee APRN.DES 11/22/2023 9:34 AM Signed Swelling following surgery is really very common, [...] can tolerate it He is seeing Dr. Zapata on Saturday, so he can take a look and discuss further as well, and Dr. Zapata is software sales consultant this , so if there are any concerns over the weekend, pt can call the office and they will put him in touch with him. Thanks, Bijal Zee APRN.Jessica Cantrell LPN 11/22/2023 10:03 AM Signed Patient notified per below. Jessica Bentley LPN November 22, 2023 10:02 AM Allergies As of Date: 11/22/2023 Noted Allergy Reaction LEVAQUIN (LEVOFLOXACIN) 06/12/2005 4 - Hives FELODIPINE 06/12/2005 2 - Rash PLETAL (CILOSTAZOL) 01/23/2012 9 - Itching SULFA (SULFONAMIDE ANTIBIOTICS) 06/12/2005 9 - Itching Date Reviewed: 11/14/2023 Reviewed by: Essie Mantilla RRT - Fully Assessed Reason for Visit: Request to return call [Other] Cmt: Request to return call. Prescriptions as of 11/22/2023 - senna-docusate (SENNA-S) 8.6-50 mg per tablet Take 1 tablet by mouth two times a day. - SEMGLEE,INSULIN GLARG-YFGN,PEN 100 unit/mL (3 mL) insulin pen INJECT 15 units SUBCUTANEOUSLY EVERY DAY IN THE MORNING - UNIFINE PENTIPS 31 gauge x 1/4 ndle once daily. - meclizine (ANTIVERT) 25 mg tab meclizine hydrochloride 25 mg oral tablet (4 sources) Antiemetic Start: 09-13-2023 - clopidogrel (PLAVIX) 75 mg tablet Take 1 tablet by mouth once daily. - insulin glargine (LANTUS SOLOSTAR U-100 INSULIN) 100 unit/mL (3 mL) - amLODIPine (NORVASC) 10 mg tablet Take 10 mg by mouth once daily. - AMMONIUM LACTATE TOPICAL Apply to affected area as needed. Lotion - dapagliflozin propanediol (FARXIGA) 10 mg tablet Take 10 mg by mouth daily with breakfast. - spironolactone (ALDACTONE) 25 mg tablet Take 25 mg by mouth once daily. - ipratropium-albuterol (DUONEB) 0.5 mg-3 mg(2.5 mg base)/3 mL nebu 4 TIMES DAILY NEEDED - furosemide (LASIX) 40 mg tablet Take 40 mg by mouth once daily. - carvedilol (COREG) 25 mg tablet Take 1 tablet by mouth twice daily. Dr. Pierre. - hydrALAZINE (APRESOLINE) 100 mg tablet Take 1 tablet by mouth three times daily. Dr. Pierre. - rOPINIRole (REQUIP) 0.5 mg tablet Take 1-3 tablets by mouth at bedtime as needed. Dr. Rivero - acetaminophen (TYLENOL) 500 mg tablet Take 500 mg by mouth every 8 hours as needed. - albuterol HFA (PROVENTIL HFA, VENTOLIN HFA) 90 mcg/actuation inhaler Inhale 2 Puffs as instructed. - montelukast (SINGULAIR) 10 mg tablet TAKE 1 TABLET BY MOUTH DAILY AT BEDTIME. FOR NASAL ALLERGIES. - metFORMIN (GLUCOPHAGE) 850 mg tablet Take 1 tablet by mouth twice daily with meals. - isosorbide mononitrate ER (IMDUR) 30 mg 24 hr tablet Take 1 tablet by mouth once daily. - pantoprazole DR AdrianPROTONIX) 40 mg tablet TAKE 1 TABLET BY MOUTH DAILY BEFORE BREAKFAST. TAKE ON EMPTY STOMACH, 1/2 HR BEFORE MEAL. - coenzyme Q10 (COENZYME Q-10) 100 mg cap capsule 100 mg once daily. - ascorbic acid, vitamin C, (VITAMIN C) 500 mg tablet Take 500 mg by mouth once daily. - blood sugar diagnostic (BLOOD GLUCOSE TEST) test (more content not included)... Normal [facility] CNDSon 11-15-2023 [facility] HNO ID: [id number] Author: RENE ZAPATA MD Service: Vascular Surgery Author Type: Physician Medical Insurance Coder Type: Discharge Summary Filed: 11/18/2023 17:31 Note Text: Attestation signed by Rene Zapata MD at 11/18/2023 5:31 PM Attending Note I personally saw and examined the patient. I reviewed the DC summary note. I agree with the resident's assessment and plan unless otherwise noted. Signature: Rene Zapata MD Date: 11/18/2023 Time: 5:31 PM DISCHARGE SUMMARY PATIENT NAME: Desiree Ames Code Status: Not on file Highest Readmission Risk Score: 28 The 30 day readmissions risk score is derived from an internally validated risk model which evaluates patient level characteristics, utilization history, medication orders and lab results up until the day of discharge. Patients with a score of 40 or above are considered highest risk for readmission. Specific patient level drivers will be listed at the bottom of the summary. Admission Information Admission Information ADMIT DATE: 11/09/2023 DISCHARGE DATE: 11/15/2023 DOCTORS AND MEDICAL TEAM: Main Hospital Doctor: Rene Zapata MD Primary Care Provider: Riaz Garrison MD Medical Team Members: Treatment Team: Attending Provider: Rene Zapata MD Consulting: Colby Gramajo MD CONDITION AT DISCHARGE: Stable REASON FOR HOSPITALIZATION: PAD SUMMARY OF HOSPITAL COURSE: Pt presented to [facility] for an elective surgery for pain in left leg associated with PAD. Preoperative clearance by Cariology with stress test - demed moderate risk loren-operatively. Dr. Zapata completed a left femoral endarterectomy on 11/12/2023. Post operative course was complicated by aphasia which was worked up by Neurology with CTH/ MRI brain. Imaging negative for acute process and symptoms resolved spontaneously. patient discharged home on POD#3 in stable condition. OTHER PROBLEMS/DIAGNOSIS: PAD (peripheral artery disease) (HCC) Coronary artery disease involving [place] coronary artery of [place] heart without angina pectoris Hypertension Chronic kidney disease Heart failure with preserved ejection fraction (HCC) Preoperative clearance History of CAD (coronary artery disease) OPERATIONS PERFORMED WHILE IN THE HOSPITAL: See above IMPORTANT TEST/PROCEDURES: See above (NM stress test/ CTH/ MRI brain) TEST RESULTS NOT AVAILABLE AT THIS TIME: No pending results Discharge Disposition Discharge Disposition: Home With Self Care Activity When You Leave the Hospital Go home and rest. Resume normal activity after 2 weeks. Lifting is restricted to less than 10 lbs for 2 weeks May shower. Wash incisions daily with soap and water, pat to dry. May use stairs No driving for 2 weeks No tub baths, swimming, or hot tubs for 2 weeks Diet Instructions Resume your pre-hospital diet For Pain When You Leave the Hospital No alcohol or driving while on pain medication Use acetaminophen (Tylenol) as recommended on the bottle You should use an anjl-irq-ezyjhfx stool softener (Docusate sodium) and/or a fiber supplement (Metamucil, Fiber Con) every day while taking prescribed pain medication Wound/Surgical Site Care Leave open to air Wash your hands frequently, especially before touching your incision, after using restroom and before eating Your incision has skin glue. It will peel off on its own. It can get wet Call Your Doctor If There is an unusual odor from the wound area There is severe pain at the operative site You have difficulty urinating or pain when urinating You have lightheadedness, fainting, or confusion You have pain and swelling in your legs, especially if it is only on one side and not the other You have persistent nausea/vomiting over 24 hours You have persistent or heavy bleeding You have redness, swelling, pus or drainage from the wound Your temperature is greater than 101F Follow Up Appointments Follow-Up Appointment [facility] and take the silver elevator to the 3rd floor. The office is immediately on the right. When: In 1 week Patient/Parents to call for appointment?: Scheduled Bijal Zee APRN.[facility] [phone] 1 [facility] [address] [address] PCP Requested Referral Follow-Up Appointment Enter thru [facility] [place] and take the silver elevator to the 3rd floor. The office is immediately on the right. When: In 2 weeks Patient/Parents to call for appointment?: Scheduled Rene Zapata MD [phone] [address] [address] PCP Requested Referral Additional Provider to Provider Information: Treatment Team: Attending Provider: Rene Zapata MD Consulting: Colby Gramajo MD Transitions of Care Critical Issues: SPECIALIST FOLLOW-U (more content not included)... Normal [facility] Basic metabolic 2000 panelon 11-14-2023 Anion gap [Moles/Vol] 11 mmol/L Normal 9-18 [facility] Comment on above: Order Comment: Specmao ribeiro Type: BLOOD SPECIMENOrdering Facility: [facility] Address: [address] [id number] Performed By: #### 2 4321-2 ####[facility] LABORATORYCLIA [id number] [place] [address] [place] Calcium [Mass/Vol] 8.5 mg/dL Normal 8.5-10.2 [facility] Comment on above: Order Comment: Emerson ribeiro Type: BLOOD SPECIMENOrdering Facility: [facility] Address: [address] [id number] Performed By: #### 2 4321-2 ####[facility] LABORATORYCLIA [id number] [place] [address] [place] Chloride [Moles/Vol] 104 mmol/L Normal 97-105 [facility] Comment on above: Order Comment: Speci men Type: BLOOD SPECIMENOrdering Facility: [facility] Address: [address] [place] [address] Performed By: #### 2 4321-2 ####[facility] LABORATORYCLIA [id number] [address] [place] CO2 [Moles/Vol] 21 mmol/L Low 22-30 [facility] Comment on above: Order Comment: Speci men Type: BLOOD SPECIMENOrdering Facility: [facility] Address: [address] [place] [address] Performed By: #### 2 4321-2 ####[facility]ITAL[facility]IA [id number] [address] Creatinine [Mass/Vol] 1.90 mg/dL High 0.73-1.22 [facility] Comment on above: Order Comment: Speci men Type: BLOOD SPECIMENOrdering Facility: [facility] Address: [address] [place] [address] Performed By: #### 2 4321-2 ####[facility] LABORATORYCLIA [id number] [address] Creatinine and Glomerular filtration rate.predicted panel (S/P/Bld) 34 mL/min/1.73m??? Low >=60 [facility] Comment on above: Order Comment: Speci men Type: BLOOD SPECIMENOrdering Facility: [facility] Address: [address] [place] [address] Result Comment: Dottie mated Glomerular Filtration Rate (eGFR) is calculated using the 2020 CKD-EPI creatinine equation. This equation utilizes serum creatinine, sex, and age as parameters. The creatinine assay has traceable calibration to isotope dilution-mass spectrometry. Refer to KDIGO guidelines for clinical interpretation. In patients with unstable renal function, e.g. those with acute kidney injury, the eGFR may not accurately reflect actual GFR. Performed By: #### 2 4321-2 ####[facility] LABORATORYCLIA [id number] [place] [address] [place] Glucose [Mass/Vol] 148 mg/dL High 74-99 [facility] Comment on above: Order Comment: Speci men Type: BLOOD SPECIMENOrdering Facility: [facility] Address: [address] [id number] Result Comment: The [place] Diabetes Association (ADA) provides guidance for cutoff values for fasting glucose and random glucose. The ADA defines fasting as no caloric intake for at least 8 hours. Fasting plasma glucose results between 100 to 125 mg/dL indicate increased risk for diabetes (prediabetes). Fasting plasma glucose results greater than or equal to 126 mg/dL meet the criteria for diagnosis of diabetes. In the absence of unequivocal hyperglycemia, results should be confirmed by repeat testing. In a patient with classic symptoms of hyperglycemia or hyperglycemic crisis, random plasma glucose results greater than or equal to 200 mg/dL meet the criteria for diagnosis of diabetes. Reference: Standards of Medical Care in Diabetes 2016, [place] [employer] Association. Diabetes Care. 2016.39(Suppl 1). Performed By: #### 2 4321-2 ####[facility] LABORATORYCLIA [id number] [place] [address] [place] Potassium [Moles/Vol] 4.3 mmol/L Normal 3.7-5.1 [facility] Comment on above: Order Comment: Mauricioi men Type: BLOOD SPECIMENOrdering Facility: [facility] Address: [address] [place] [address] Performed By: #### 2 4321-2 ####[facility] LABORATORYCLIA [id number] [place] [address] [place] Sodium [Moles/Vol] 136 mmol/L Normal 136-144 [facility] Comment on above: Order Comment: Speci men Type: BLOOD SPECIMENOrdering Facility: [facility] Address: [address] [id number] Performed By: #### 2 4321-2 ####[facility] LABORATORYCLIA [id number] [place] [address] [place] Urea nitrogen [Mass/Vol] 28 mg/dL High 9-24 [facility] Comment on above: Order Comment: Speci men Type: BLOOD SPECIMENOrdering Facility: [facility] Address: [address] [place] [address] Performed By: #### 2 4321-2 ####[facility] LABORATORYCLIA [id number] [address] CBC panel Auto (Bld)on 11-14 Erythrocyte distribution width (RBC) [Ratio] 15.5 % High 11.5-15.0 [facility] Comment on above: Order Comment: Speci men Type: BLOOD SPECIMENOrdering Facility: [facility] Address: [address] [place] [address] Performed By: #### 5 8410-2 ####[facility] LABORATORYCLIA [id number] [address] Hematocrit (Bld) [Volume fraction] 29.5 % Low 39.0-51.0 [facility] Comment on above: Order Comment: Speci men Type: BLOOD SPECIMENOrdering Facility: [facility] Address: [address] [place] [address] Performed By: #### 5 8410-2 ####[facility] LABORATORYCLIA [id number] [address] Hemoglobin (Bld) [Mass/Vol] 9.0 g/dL Low 13.0-17.0 [facility] Comment on above: Order Comment: Speci men Type: BLOOD SPECIMENOrdering Facility: [facility] Address: [address] [place] [address] Performed By: #### 5 8410-2 ####[facility] LABORATORYCLIA [id number] [address] STATES [facility] MCH (RBC) [Entitic mass] 26.4 pg Normal 26.0-34.0 [facility] Comment on above: Order Comment: Speci men Type: BLOOD SPECIMENOrdering Facility: [facility] Address: [address] [place] [address] Performed By: #### 5 8410-2 ####[facility] LABORATORYCLIA [id number] [address] MCHC (RBC) [Mass/Vol] 30.5 g/dL Normal 30.5-36.0 [facility] Comment on above: Order Comment: Speci men Type: BLOOD SPECIMENOrdering Facility: [facility] Address: [address] [place] [address] Performed By: #### 5 8410-2 ####[facility] LABORATORYCLIA [id number] [address] [place] MCV (RBC) [Entitic vol] 86.5 fL Normal 80.0-100.0 [facility] Comment on above: Order Comment: Speci men Type: BLOOD SPECIMENOrdering Facility: [facility] Address: [address] [place] [address] Performed By: #### 5 8410-2 ####[facility] LABORATORYCLIA [id number] [address] STATES OF [facility] Nucleated RBC (Bld) [#/Vol] 10*3/uL Normal <0.01 [facility] Comment on above: Order Comment: Speci men Type: BLOOD SPECIMENOrdering Facility: [facility] Address: [address] [place] [address] Performed By: #### 5 8410-2 ####[facility] LABORATORYCLIA [id number] [address] [place] Platelet mean volume (Bld) [Entitic vol] 10.6 fL Normal 9.0-12.7 [facility] Comment on above: Order Comment: Speci men Type: BLOOD SPECIMENOrdering Facility: [facility] Address: [address] [place] [address] Performed By: #### 5 8410-2 ####[facility] LABORATORYCLIA [id number] [address] [place] Platelets (Bld) [#/Vol] 183 10*3/uL Normal 150-400 [facility] Comment on above: Order Comment: Speci men Type: BLOOD SPECIMENOrdering Facility: [facility] Address: [address] [place] [address] Performed By: #### 5 8410-2 ####[facility] LABORATORYCLIA [id number] [address] OF [facility] RBC (Bld) [#/Vol] 3.41 10*6/uL Low 4.20-6.00 [facility] Comment on above: Order Comment: Speci men Type: BLOOD SPECIMENOrdering Facility: [facility] Address: [address] [place] [address] Performed By: #### 5 8410-2 ####[facility] LABORATORYCLIA [id number] [address] WBC (Bld) [#/Vol] 11.23 10*3/uL High 3.70-11.00 [facility] Comment on above: Order Comment: Speci men Type: BLOOD SPECIMENOrdering Facility: [facility] Address: [address] [place] [address] Performed By: #### 5 8410-2 ####[facility] LABORATORYCLIA [id number] [address] NURSING PROGon 11-14-2023 NURSING PROG HNO ID: [id number] Author: BARTOLO STEINBERG RN Service: ? Author Type: Registered Nurse Type: Nursing Progress Note Filed: 11/14/2023 10:29 Note Text: Transfer Note: PATIENT NAME: Desiree Ames Patient Location: [place] [address] [address] Room: [place] [address] Patient transferred into room/unit 4207 in stable condition. Actions taken: Report given/called to 4200. Nursing staff notified of patient arrival and connected to telemetry. Normal [facility] THERAPY NTon 11-14-2023 THERAPY NT HNO ID: [id number] Author: CHELSIE WINSTON OTR/L Service: Occupational Therapy Author Type: Occupational Therapist Type: Therapy (PT/OT/Speech/Resp) Filed: 11/14/2023 13:58 Note Text: Occupational Therapy Evaluation Summary SERVICE DATE: 11/14/2023 SERVICE TIME: 1325 to 1350 ROOM: [id number] OT 6 Clicks Score: 19 DISCHARGE RECOMMENDATIONS Home Recommended Discharge Disposition Comments: Anticipate home with supportive family assist PRN Anticipated Discharge Needs: Physical Assist at Home Physical Assist at Home for: Laundry, Cleaning, Meals, Shopping, Transportation ASSESSMENT Response to Therapy Interventions: Good Participation in Activities, Low Activity Tolerance, Requires Additional Time to Complete Activities Education provided re: energy conservation, work simplification techniques to maximize overall activity tolerance for increased participation in ADL activities. Ed re: incorporation of rest breaks during functional tasks to maximize activity tolerance as well. Allowed pt to practice during functional mobility with walker in hallway. Somewhat short of breath following activity, but able to participate well. Ed re: safety with bathroom transfers and allowing staff assist this admit. Pt receptive. Up in chair at end of session. PRECAUTIONS None CURRENT HOSPITAL COURSE s/p ENDARTERECTOMY FEMORAL WITH ANGIOPLASTY 11/14 Relevant Past Medical History: PAD, CAD, HTN, CKD, DM, BPH, former smoker, RF HOME LIVING Patient Lives With: Spouse Assistance Available: 24-Hour Entry To Home: Stairs, Without Rail Number Of Stairs Into Home: 3 Number Of Stairs To Bed/Bath: 0 Tub/Shower Type: basement walk in shower (stairs w/rail) Laundry: completed by spouse Equipment Owned: Cane, Rollator, Walker- Wheeled PRIOR FUNCTIONAL LEVEL Within Functional Limits Pt ambulated w/ cane prior to admission. Drives. Baseline Cognition: Oriented to self, Oriented to place, Oriented to time SUBJECTIVE awake, pleasant, agreeable to OT session COGNITION Responsiveness: Alert, Awake Follows Commands: 3-step Commands THERAPY DIAGNOSIS Reduced mobility-other, Decreased activities of daily living (ADL) TREATMENT INTERVENTIONS Evaluation, Self Shelter Management (23192) Timed Code Treatment (minutes): 10 Skilled Treatment Time (minutes): 25 $ Evaluation - Moderate (28033) Billed Units: 1 unit Self Shelter Management (97394) Treatment Minutes: 10 $ Self Shelter Management (52160) Billed Units: 1 unit TRAINING AND EDUCATION PROVIDED Activity Adaptation/Compensatory Strategies, Energy Conservation, Role of Occupational Therapy, Expected Functional Level, Discharge Planning, Home Set-up/Modifications THERAPEUTIC SKILLS USED Activity Dosing, Cues for Sequencing/Proper Technique for Activity, Physical Assist, Therapeutic Use of Self, Movement Facilitation, Cuing Verbal FUNCTIONAL STATUS Activities of Daily Living Assist Level Additional Information Feeding Independent Grooming Set Up Bathing Upper Body Set Up Bathing Lower Body Minimal Assistance Dressing Upper Body Set Up Dressing Lower Body Minimal Assistance, Additional Information able to utilize figure-4 technique for R LE; requires increased assist with L LE due to sore Toileting Contact Guard Assistance Mobility Assist Level Additional Information Bed Mobility Sit to Stand Contact Guard Assistance Stand to Sit Contact Guard Assistance Bed to Chair Toilet/Commode Contact Guard Assistance Shower Functional Mobility Contact Guard Assistance, Additional Information Functional Mobility Device: Wheeled Walker cues for walker safety during transitions Range of Motion: WFL Strength: WFL Hearing Deficits: Hard Of Hearing GOALS Lower Body Bathing with: Modified Independent Lower Body Dressing with: Modified Independent Toilet Hygiene with: Modified Independent Toilet Transfer with: Modified Independent Tolerate (minutes of functional activity): 20 Functional Activity with: Modified Independent Demonstrate Competence with Education with: Independent (energy conservation, work simplificaiton, breathing techniques) Rehab Potential: Good PLAN OT Frequency: 2 Times Per Week (1-2x) Treatment Interventions: Education, Self Care/Home Management, Energy Conservation Training SIGNATURE: NTAE Bansal/Vee PATIENT NAME: Desiree Ames DATE: November 14, 2023 TIME: 1:56 PM Normal [facility] THERAPY NT HNO ID: [id number] Author: MCKAY DICKERSON, PT Service: Physical Therapy Author Type: Physical Therapist Type: Therapy (PT/OT/Speech/Resp) Filed: 11/14/2023 14:11 Note Text: Physical Therapy Evaluation Summary SERVICE DATE: 11/14/2023 SERVICE TIME: 1034 to 1055 ROOM: [id number] PT 6 Clicks Score: 19 DISCHARGE RECOMMENDATIONS Home Recommended Discharge Disposition Comments: Pt close to previous baseline and is safe to d/c home w/ use of FWW. Recommended Discharge Equipment: No equipment needs anticipated (pt owns needed DME) ASSESSMENT Response to Therapy Interventions: Good Participation in Activities, On-Track to Achieve Discharge Goals Pt demonstrated appropriate tolerance to activity and is close to previous baseline. Anticipate pt will be safe to d/c home w/ use of FWW for higher level balance deficits. PRECAUTIONS None CURRENT HOSPITAL COURSE s/p ENDARTERECTOMY FEMORAL WITH ANGIOPLASTY 11/14 Relevant Past Medical History: PAD, CAD, HTN, CKD, DM, BPH, former smoker, RF HOME LIVING Patient Lives With: Spouse Assistance Available: 24-Hour Entry To Home: Stairs, Without Rail Number Of Stairs Into Home: 3 Number Of Stairs To Bed/Bath: 0 Tub/Shower Type: basement walk in shower (stairs w/rail) Laundry: completed by spouse Equipment Owned: Cane, Rollator, Walker- Wheeled PRIOR FUNCTIONAL LEVEL Within Functional Limits Pt ambulated w/ cane prior to admission. Drives. SUBJECTIVE Pt agreeable to PT THERAPY DIAGNOSIS Reduced mobility-other TREATMENT INTERVENTIONS Evaluation $ Evaluation-Moderate (07804) Billed Units: 1 unit Skilled Treatment Time (minutes): 21 TRAINING AND EDUCATION PROVIDED Assistive Device Use, Benefits of In-Hospital Mobility, Discharge Planning, Expected Functional Level, Falls Prevention, Home Safety, Positioning, Role of Physical Therapy, Standing Balance, Transfers THERAPEUTIC SKILLS USED Activity Dosing, Assessment of Tolerance Including Vitals Response to Activity, Cues for Sequencing/Proper Technique for Activity, Cuing Tactile, Cuing Verbal, Movement Facilitation, Postural Alignment Correction FUNCTIONAL STATUS Bed Mobility Transfers Sit To Stand: Contact Guard Assistance Stand To Sit: Contact Guard Assistance Bed to Chair Gait Contact Guard Assistance, Additional Information Pt demonstrated steady gait speed w/ no overt LOB or excessive SOB. Distance limited by fatigue, denies dizziness. SpO2 at baseline. Gait Device: Wheeled Walker General Deviations/Observations : Kelly decreased, Flexed trunk posture, Visual scanning/environmental awareness decreased Gait Distance (feet): 75 Stairs ROM WFL STRENGTH Strength Limitation Comments: 4+/5 B hip flexion; grossly 5/5 remaining B LE MMTs BALANCE Dynamic Standing Balance: Fair GOALS Transfer Sit to/from Stand with: Independent Ambulate with: Independent Distance: 150 Device: Wheeled Walker Ambulate Up and Down Steps with: Independent Number of Steps: 3 Device: Cane, Rail Rehab Potential: Good PLAN PT Frequency: 3 Times Per Week (1-3) Treatment Interventions: Education, Balance Training, Functional Mobility Training, Strengthening SIGNATURE: SATYA Dougherty PATIENT NAME: Desiree Ames DATE: November 14, 2023 TIME: 11:24 AM I reviewed and agree with the documentation corresponding to this therapy visit. SIGNATURE: Mckay Dickerson PT DATE: November 14, 2023 TIME: 2:11 PM [facility] ALLIED HEALTHon 11-13-2023 ALLIED HEALTH HNO ID: [id number] Author: HAVEN CHRISTENSEN Chaplain Service: ? Author Type: Teacher Education Instructor Type: Allied Health Filed: 11/13/2023 13:38 Note Text: SPIRITUAL CARE PROGRESS NOTE SERVICE DATE: 11/13/2023 SERVICE TIME: 1:15 PM Teacher Education Instructor attended patient during unit rounds and provided family with presence, assurance, and empathic listening. To contact the Spiritual Care Department: Please call [phone]. SIGNATURE: Chaplain Julieta PATIENT NAME: Desiree Ames DATE: November 13, 2023 TIME: 1:37 PM PAGER/CONTACT #: [phone] Normal [facility] Basic metabolic 2000 panelon 11-13-2023 Anion gap [Moles/Vol] 9 mmol/L Normal 9-18 [facility] Comment on above: Order Comment: Speci men Type: BLOOD SPECIMENOrdering Facility: [facility] Address: [address] [place] [address] Performed By: #### 2 4321-2 ####[facility] LABORATORYCLIA [id number] [place] [address] [place] Calcium [Mass/Vol] 8.2 mg/dL Low 8.5-10.2 [facility] Comment on above: Order Comment: Speci men Type: BLOOD SPECIMENOrdering Facility: [facility] Address: [address] [place] [address] Performed By: #### 2 4321-2 ####[facility] LABORATORYCLIA [id number] [place] [address] [place] Chloride [Moles/Vol] 104 mmol/L Normal 97-105 [facility] Comment on above: Order Comment: Speci men Type: BLOOD SPECIMENOrdering Facility: [facility] Address: [address] [place] [address] Performed By: #### 2 4321-2 ####[facility] LABORATORYCLIA [id number] [place] [address] [place] CO2 [Moles/Vol] 23 mmol/L Normal 22-30 [facility] Comment on above: Order Comment: Emerson ribeiro Type: BLOOD SPECIMENOrdering Facility: [facility] Address: [address] [place] [address] Performed By: #### 2 4321-2 ####[facility] LABORATORYCLIA [id number] [place] [id number] [place] Creatinine [Mass/Vol] 2.05 mg/dL High 0.73-1.22 [facility] Comment on above: Order Comment: Emerson quintin Type: BLOOD SPECIMENOrdering Facility: [facility] Address: [address] [place] [address] Performed By: #### 2 4321-2 ####[facility] LABORATORYCLIA [id number] [address] Creatinine and Glomerular filtration rate.predicted panel (S/P/Bld) 31 mL/min/1.73m??? Low >=60 [facility] Comment on above: Order Comment: Emerson quintin Type: BLOOD SPECIMENOrdering Facility: [facility] Address: [address] [place] [address] Result Comment: Dottie mated Glomerular Filtration Rate (eGFR) is calculated using the 2020 CKD-EPI creatinine equation. This equation utilizes serum creatinine, sex, and age as parameters. The creatinine assay has traceable calibration to isotope dilution-mass spectrometry. Refer to KDIGO guidelines for clinical interpretation. In patients with unstable renal function, e.g. those with acute kidney injury, the eGFR may not accurately reflect actual GFR. Performed By: #### 2 4321-2 ####[facility] LABORATORYCLIA [id number] [place] [address] [place] Glucose [Mass/Vol] 141 mg/dL High 74-99 [facility] Comment on above: Order Comment: Emerson ribeiro Type: BLOOD SPECIMENOrdering Facility: [facility] Address: [address] [place] [address] Result Comment: The [place] Diabetes Association (ADA) provides guidance for cutoff values for fasting glucose and random glucose. The ADA defines fasting as no caloric intake for at least 8 hours. Fasting plasma glucose results between 100 to 125 mg/dL indicate increased risk for diabetes (prediabetes). Fasting plasma glucose results greater than or equal to 126 mg/dL meet the criteria for diagnosis of diabetes. In the absence of unequivocal hyperglycemia, results should be confirmed by repeat testing. In a patient with classic symptoms of hyperglycemia or hyperglycemic crisis, random plasma glucose results greater than or equal to 200 mg/dL meet the criteria for diagnosis of diabetes. Reference: Standards of Medical Care in Diabetes 2016, [place] Diabetes Association. Diabetes Care. 2016.39(Suppl 1). Performed By: #### 2 4321-2 ####[facility] LABORATORYCLIA [id number] [address] OF [facility] Potassium [Moles/Vol] 4.8 mmol/L Normal 3.7-5.1 [facility] Comment on above: Order Comment: Emerson ribeiro Type: BLOOD SPECIMENOrdering Facility: [facility] Address: [address] [place] [address] Performed By: #### 2 4321-2 ####[facility]ITALCL[facility] [id number] [address] STATES [facility] Sodium [Moles/Vol] 136 mmol/L Normal 136-144 [facility] Comment on above: Order Comment: Emerson irbeiro Type: BLOOD SPECIMENOrdering Facility: [facility] Address: [address] [place] [address] Performed By: #### 2 4321-2 ####[facility] LABORATORYCLIA [id number] [address] [place] [facility] Urea nitrogen [Mass/Vol] 31 mg/dL High 9-24 [facility] Comment on above: Order Comment: Mauricioi quintin Type: BLOOD SPECIMENOrdering Facility: [facility] Address: [address] [place] [address] Performed By: #### 2 4321-2 ####[facility] LABORATORYCLIA [id number] [address] [place] CBC panel Auto (Bld)on 11-13 Erythrocyte distribution width (RBC) [Ratio] 15.1 % High 11.5-15.0 [facility] Comment on above: Order Comment: Mauricioi quintin Type: BLOOD SPECIMENOrdering Facility: [facility] Address: [address] [place] [address] Performed By: #### 5 8410-2 ####[facility] LABORATORYCLIA [id number] [address] Hematocrit (Bld) [Volume fraction] 30.8 % Low 39.0-51.0 [facility] Comment on above: Order Comment: Speci men Type: BLOOD SPECIMENOrdering Facility: [facility] Address: [address] [place] [address] Performed By: #### 5 8410-2 ####[facility] LABORATORYCLIA [id number] [address] OF [facility] Hemoglobin (Bld) [Mass/Vol] 9.7 g/dL Low 13.0-17.0 [facility] Comment on above: Order Comment: Speci men Type: BLOOD SPECIMENOrdering Facility: [facility] Address: [address] [place] [address] Performed By: #### 5 8410-2 ####[facility] LABORATORYCLIA [id number] [address] STATES OF [facility] MCH (RBC) [Entitic mass] 26.4 pg Normal 26.0-34.0 [facility] Comment on above: Order Comment: Speci men Type: BLOOD SPECIMENOrdering Facility: [facility] Address: [address] [place] [address] Performed By: #### 5 8410-2 ####[facility] LABORATORYCLIA [id number] [address] [place] MCHC (RBC) [Mass/Vol] 31.5 g/dL Normal 30.5-36.0 [facility] Comment on above: Order Comment: Speci men Type: BLOOD SPECIMENOrdering Facility: [facility] Address: [address] [place] [address] Performed By: #### 5 8410-2 ####[facility] LABORATORYCLIA [id number] [address] MCV (RBC) [Entitic vol] 83.7 fL Normal 80.0-100.0 [facility] Comment on above: Order Comment: Speci men Type: BLOOD SPECIMENOrdering Facility: [facility] Address: [address] [place] [address] Performed By: #### 5 8410-2 ####[facility] LABORATORYCLIA [id number] [address] [place] Nucleated RBC (Bld) [#/Vol] 10*3/uL Normal <0.01 [facility] Comment on above: Order Comment: Speci men Type: BLOOD SPECIMENOrdering Facility: [facility] Address: [address] [place] [address] Performed By: #### 5 8410-2 ####[facility] LABORATORYCLIA [id number] [address] [place] Platelet mean volume (Bld) [Entitic vol] 10.4 fL Normal 9.0-12.7 [facility] Comment on above: Order Comment: Speci men Type: BLOOD SPECIMENOrdering Facility: [facility] Address: [address] [place] [address] Performed By: #### 5 8410-2 ####[facility] LABORATORYCLIA [id number] [address] [place] Platelets (Bld) [#/Vol] 187 10*3/uL Normal 150-400 [facility] Comment on above: Order Comment: Speci men Type: BLOOD SPECIMENOrdering Facility: [facility] Address: [address] [place] [address] Performed By: #### 5 8410-2 ####[facility] LABORATORYCLIA [id number] [address] [place] RBC (Bld) [#/Vol] 3.68 10*6/uL Low 4.20-6.00 [facility] Comment on above: Order Comment: Speci men Type: BLOOD SPECIMENOrdering Facility: [facility] Address: [address] [place] [address] Performed By: #### 5 8410-2 ####[facility] LABORATORYCLIA [id number] [place] [address] [place] WBC (Bld) [#/Vol] 9.70 10*3/uL Normal 3.70-11.00 [facility] Comment on above: Order Comment: Speci men Type: BLOOD SPECIMENOrdering Facility: [facility] Address: [address] [place] [address] Performed By: #### 5 8410-2 ####[facility] LABORATORYCLIA [id number] [place] [address] [place] US ARTERIAL PVR LOWERon 020 US ARTERIAL PVR LOWER * * *Final Report* * * DATE OF EXAM: Nov 13 2023 12:00AM A2U 1107 - US ARTERIAL PVR LOWER / PROCEDURE REASON: PVD * * * * Physician Interpretation * * * * Non-Invasive Vascular Laboratory [facility] Lower Extremity Arterial Physiology Study Bilateral/Complete Date of service/time: 11/13/2023 3:14:00 PM HOSPITAL Name: [facility] Date of : 1935 Age: 88 years Gender: M Clinical Indication Atheroembolism. TECHNIQUE -------- An arterial physiological examination was performed, including measurement of blood pressures using continuous wave Doppler and recording of plethysmographic with or without Doppler waveforms at the below-mentioned limb segments. FINDINGS -------- RIGHT SIDE AT REST Right Doppler Waveforms Dorsalis pedis: Absent. Post tibial: Multiphasic. Right Pressures Brachial: 137 mmHg High thigh: 158 mmHg Low thigh: 118 mmHg Calf: 92 mmHg Ankle dorsalis pedis: 109 mmHg MARILEE: 0.80 Ankle posterior tibial: 98 mmHg MARILEE: 0.72 Digit: 67 mmHg Right PVR Waveforms High thigh: Normal. Low thigh: Normal. Calf: Mildly dampened. Ankle: Mildly dampened. Transmetatarsal: Mildly dampened. Digit: Mildly dampened. LEFT SIDE AT REST Left Doppler Waveforms Dorsalis pedis: Monophasic. Post tibial: Monophasic. Left Pressures Brachial: 137 mmHg High thigh: 88 mmHg Low thigh: 96 mmHg Calf: 79 mmHg Ankle dorsalis pedis: 52 mmHg MARILEE: 0.38 Ankle posterior tibial: 54 mmHg MARILEE: 0.39 Digit: 31 mmHg Left PVR Waveforms High thigh: Mildly dampened. Low thigh: Mildly dampened. Calf: Normal. Ankle: Normal. Transmetatarsal: Moderately dampened. Digit: Mildly dampened. IMPRESSION RIGHT SIDE Resting right ankle brachial index: 0.80 Right toe brachial index: 0.49 Non-compressible vessels, results called by PVR tracings. Borderline abnormal ankle brachial index at rest. Right ankle: Mild disease at rest. Right distal superficial femoral and/or popliteal disease. Right infrapopliteal disease. LEFT SIDE Resting left ankle brachial index: 0.39 Left toe brachial index: 0.23 Abnormal ankle brachial index at rest diagnostic of peripheral artery disease. Non-compressible vessels, results called by PVR tracings. Left ankle: Severe disease at rest by index. Waveform could suggest less severe disease. Left iliofemoral disease. Left infrapopliteal disease. Left small vessel disease. Technologist: Mey Ladd Ordering physician: RENE ZAPATA Interpreting physician: Sherrill Lemus MD * * * Final * * * RP Footwear Sales Representative: HERB Parishrijazz Date/Time: Nov 13 2023 3:14P Dictated by : SHERRILL LEMUS MD This examination was interpreted and the report reviewed and electronically signed by: SHERRILL LEMUS MD on Nov 14 2023 8:23AM EST [id number] Normal [facility] ALLIED HEALTHon 11-12-2023 ALLIED HEALTH HNO ID: [id number] Author: LENY MEADOWS RT(R) Service: Radiology Author Type: Technologist Type: Allied Health Filed: 11/12/2023 20:45 Note Text: Radiology Service Progress Note PATIENT NAME: Desiree Ames DATE OF SERVICE: November 12, 2023 TIME: 8:44 PM PATIENT IDENTITY VERIFICATION COMPLETED USING TWO (2) IDENTIFIERS: Name and Date of confirmed by patient verbally and Name and Date of confirmed by identification band. FALL SCREENING: Has the patient had 2 falls in the last year or 1 fall with injury or currently using an Ambulatory Assistive Device (Walker, Cane, Wheelchair, Crutches, etc.)? Inpatient: Screened on floor PATIENT GENDER DATA: Male PATIENT RELEVANT IMPLANT DATA REVIEWED: Yes PATIENT PRESENTS WITH AN IMPLANTABLE OR ATTACHED AGRICULTURE SCIENCE TEACHER: No RADIOLOGY DEPARTMENT: MR; Exam(s) Completed: Head: Routine Brain Andreafski of [place] MRA Neck: Carotids MRA, bilateral PERIPHERAL IV DATA: Not applicable SIGNED BY: RT Wade(R) November 12, 2023 8:44 PM [facility] ALLIED HEALTH HNO ID: [id number] Author: BIJAL ALCANTAR RT(Maverick) Service: ? Author Type: Technologist Type: Allied Health Filed: 11/12/2023 17:07 Note Text: Radiology Service Progress Note PATIENT NAME: Desiree Ames DATE OF SERVICE: November 12, 2023 TIME: 5:06 PM PATIENT IDENTITY VERIFICATION COMPLETED USING TWO (2) IDENTIFIERS: Name and Date of confirmed by identification band. FALL SCREENING: Has the patient had 2 falls in the last year or 1 fall with injury or currently using an Ambulatory Assistive Device (Walker, Cane, Wheelchair, Crutches, etc.)? Inpatient: Screened on floor PATIENT GENDER DATA: Male PATIENT RELEVANT IMPLANT DATA REVIEWED: Not Applicable PATIENT PRESENTS WITH AN IMPLANTABLE OR ATTACHED AGRICULTURE SCIENCE TEACHER: No RADIOLOGY DEPARTMENT: CT; Exam(s) Completed: Brain PERIPHERAL IV DATA: Inpatient: see LDA documentation SIGNED BY: RT Sylvie(R) November 12, 2023 5:06 PM [facility] ANES POSTPROC EVALon 024 ANES POSTPROC EVAL HNO ID: [id number] Author: KHUSHBOO VELÁZQUEZ MD Service: Anesthesiology Author Type: Anesthesiologist Type: Anesthesia Postprocedure Evaluation Filed: 11/12/2023 16:56 Note Text: POST ANESTHESIA EVALUATION NOTE : 1935 Procedure Summary Date: 11/12/23 Room / Location: OR OR [address] [place] [address] OR Anesthesia Start: 08 Anesthesia Stop: 1600 Procedure: ENDARTERECTOMY FEMORAL WITH ANGIOPLASTY- left femoral endarterectomy with iliac stenting (Left: Femoral) Diagnosis: Superficial occlusion of femoral artery (HCC) (Superficial occlusion of femoral artery (HCC) [I70.209]) Surgeons: Rene Zapata MD Responsible Provider: Khushboo Velázquez MD Anesthesia Type: general ASA Status: 4 Anesthesia Type: general Airway Type: ETT Last Vitals Vitals Value Taken Time BP 188/63 11/12/23 1645 Temp 98 11/12/23 1655 Pulse 53 11/12/23 1650 Resp 15 11/12/23 1650 SpO2 99 % 11/12/23 1650 Vitals shown include unfiled device data. Post Anesthesia Patient Status Anticipated Disposition: ICU planned admission. Neurological Status: aware and responsive. Pulmonary Status: breathing comfortably on supplemental oxygen Airway Control: returned to baseline unsupported. Cardiovascular Status: stable. Pain Management: clinically adequate Postoperative Hydration: acceptable. Intraoperative Events: no significant anesthesia events Post Operative Nausea/Vomiting Status: no significant post operative nausea or vomiting Recommendation: further care per PACU/ICU/floor team. Anesthesia Observations No Documentation SIGNATURE: Khushboo Velázquez MD PATIENT NAME: Desiree Ames DATE: November 12, 2023 TIME: 4:55 PM CSN: [id number] [facility] ANES PRE-OPon 11-12-2023 ANES PRE-OP HNO ID: [id number] Author: KHUSHBOO VELÁZQUEZ MD Service: Anesthesiology Author Type: Anesthesiologist Type: Anesthesia Preprocedure Evaluation Filed: 11/12/2023 07:59 Note Text: ANESTHESIOLOGY DAY OF SURGERY NOTE : 1935 Procedure Information Date/Time: 11/12/23 0800 Procedure: ENDARTERECTOMY FEMORAL WITH ANGIOPLASTY- left femoral endarterectomy with iliac stenting (Left: Femoral) Location: OR OR / OR OR Surgeons: Rene Zapata MD Estimated body mass index is 30.03 kg/m? as calculated from the following: Height as of this encounter: 172.7 cm (5' 8). Weight as of this encounter: 89.6 kg (197 lb 8.5 oz). Most recent hematocrit and potassium results: Hematocrit 28.0 11/12/2023 Potassium 4.0 11/12/2023 Relevant Problems CARDIO (+) Aorto-iliac atherosclerosis (HCC) (HCC) (+) Atherosclerosis of [place] artery of left lower extremity with rest pain (HCC) (+) Coronary artery disease involving [place] coronary artery of [place] heart without angina pectoris (+) Femoral artery thrombosis (HCC) (+) Hypertension (+) PAD (peripheral artery disease) (HCC) (+) Peripheral arterial disease (HCC) (+) Superficial femoral artery occlusion (HCC) (+) Venous insufficiency (chronic) (peripheral) ENDO (+) Well controlled type 2 diabetes mellitus with neurological manifestations (HCC) -RENAL (+) Chronic kidney disease NEURO-PSYCH (+) History of CAD (coronary artery disease) PULMONARY (+) Chronic obstructive pulmonary disease with acute exacerbation (HCC) - CAD s/p PCI, had stress test yesterday showing mild ischemia in LCx territory and fixed perfusion defect in LAD and LCX territory, EF 53%, RVSP 37, mild-mod MR - cardiology cleared him for surgery with no further testing needed - pt denies any anginal symptoms - MARIXA on BiPAP - COPD - HFpEF - PAD here for L FEA with iliac stenting - on coreg - did not take this AM - also on hydralazine, imdur and lasix - did not take them this AM I - PHYSICAL EVALUATION AIRWAY Patient intubated: No. Tracheostomy tube not present Mallampati: II. TM distance: >3 FB. Neck ROM: full ROM without neurological symptoms. Mouth opening: adequate. Short neck: no. Thick neck: no DENTAL Dental findings: edentulous. II - ANESTHESIA PLAN ASA Score: 4 Anesthetic Plan: general Airway type: ETT The patient is not a current smoker. NPO Status: adequate Beta Wagner Monitoring Plan Monitoring plan: standard ASA and invasive hemodynamic monitoring. Monitoring method: arterial Line Post Procedure Analgesic Plan Postoperative analgesic plan: parenteral or oral opioids. Informed Consent Anesthetic risks, benefits, alternatives, personnel and consent discussed: yes. Patient / Responsible Democrat agrees to proceed: yes Patient / Surrogate agrees to blood products: blood products not planned Potential Anesthesia issues that may suggest increased risk of complications or contraindication to planned procedure: none. Vitals Value Taken Time BP 167/62 11/12/2318 Pulse 53 11/12/2318 Resp 16 11/12/23717 Temp 35.8 ?C (96.4 ?F) 11/12/23717 SpO2 95 % 11/12/2318 Facility-Administered Medications as of 11/12/2023 Medication Dose Route Frequency - [Held on Transfer] aspirin, enteric coated 81 mg tab(s) 81 mg ORAL DAILY - [Held on Transfer] insulin lispro injection (rapid acting) (ADMElog) SUBCUTANEOUS w MEALS - [Held on Transfer] sodium chloride 0.9 % (flush) 2-10 mL (BD POSIFLUSH) 2-10 mL INTRAVENOUS DIRECTED PRN And - [Held on Transfer] perflutren lipid microspheres 1.1 mg/mL 1.3 mL injection (DEFINITY) 1.3 mL INTRAVENOUS DIRECTED PRN - [Held on Transfer] nitroglycerin sublingual 0.4 mg tab(s) (NITROQUICK) 0.4 mg SUBLINGUAL q 5 MIN PRN - [Held on Transfer] atorvastatin 40 mg tab(s) (LIPITOR) 40 mg ORAL q 48 H - [Held on Transfer] ipratropium bromide 2 [place] nasal spray (ATROVENT) 2 [place] NASAL QID - [Held on Transfer] isosorbide mononitrate ER 30 mg tab(s) (IMDUR) 30 mg ORAL DAILY - [Held on Transfer] pantoprazole DR 40 mg tab(s) (PROTONIX) 40 mg ORAL DAILY (6 AM) - [Held on Transfer] montelukast 10 mg tab(s) (SINGULAIR) 10 mg ORAL AT BEDTIME - [Held on Transfer] albuterol HFA 90 mcg/actuation 2 Puff (PROVENTIL HFA, VENTOLIN HFA) 2 Puff INHALATION q 6 H PRN - [Held on Transfer] carvedilol 25 mg tab(s) (COREG) 25 mg ORAL BID - [Held on Transfer] hydrALAZINE 100 mg tab(s) (APRESOLINE) 100 mg ORAL TID - [Held on Transfer] rOPINIRole 1 mg tab(s) (REQUIP) 1 mg ORAL AT BEDTIME - [Held on Transfer] ipratropium-albuterol 3 mL nebulizer solution (DUONEB) 3 mL INHALATION q 4 H PRN - [Held on Transfer] amLODIPine 10 mg tab(s) (NORVASC) 10 mg ORAL DAILY - [Held on Transfer] meclizine 25 mg tab(s) (ANTIVERT) 25 mg ORAL BID PRN - [Held on Transfer] cetirizine 5 mg tab(s) (ZYRTEC) 5 mg ORAL DAILY - [Held on Transfer] NaCl 0.9% iv flush bag 20 mL INTRAVENOUS PRN - [Held on Transfer] ondansetr (more content not included)... Normal [facility] BRIEF OP NOTon 11-12-2023 BRIEF OP NOT HNO ID: [id number] Author: OSCAR SIFUENTES MD Service: General Surgery Author Type: Resident Type: Brief Op Note Filed: 11/12/2023 17:13 Note Text: BRIEF OPERATIVE / PROCEDURE NOTE LOG ID: [id number] Surgery/Procedure Date: 11/12/2023 Incision/Procedure Start Time: 9:16 AM Incision Close/Procedure End Time: 3:27 PM Surgeon(s)/Proceduralis t(s) and Medical Insurance Coder(s): Surgeon(s) and Role: * Rene Zapata MD - Primary * Oscar Sifuentes MD - Resident - Assisting Physician Medical Insurance Coder: Kamran Boggs PA-C Procedure(s): Procedure(s) with comments: ENDARTERECTOMY FEMORAL WITH ANGIOPLASTY- left femoral endarterectomy with iliac stenting - LEFT FEMORAL ENDARTERECTOMY WITH PATCH ANGIOPLASTY, LEFT LEG ANGIOGRAM Procedure(s): L femoralendarterectomy (povine patch) Anesthesia: General ASA Class: Findings: Significant calcification within femoral, external iliac, profunda, and SFA, all of which was endarterectomized. Profunda shelf tacked with prolene. 8 cm bovine patch. Please see operative report for full details Pulses: LLE DP and PT signals Medications: Antiplatelet: Yes - Medication: Plavix Dose: 75 mg Anticoagulation: No Statin: Yes - Medication: Lipitor Dose: 40 mg Beta Wagner: Yes - Medication: Coreg Dose: 25 mg BID ASA 81 mg Estimated Blood Loss: 1000 mls IV Fluids: Per anesthesia report Urine output: Per anesthesia report Specimens: None ID Type Source Tests Collected by Time Destination A : PLAQUE FROM LEFT FEMORAL ARTERY Tissue PLAQUE SURGICAL PATHOLOGY Rene Zapata MD 11/12/2023 2:10 PM Complications: None Drains: None Wound Classification: Class 1, operative wound clean, non-traumatic, with no inflammation encountered, no break in technique, gastrointestinal and genitor-urinary tracts not entered PRE-OP/PRE-PROCEDURE DIAGNOSIS: Femoral and external iliac atherosclerosis POST-OP/POST-PROCEDURE DIAGNOSIS: Same as Preop From 5pm to 6 am and on weekends, please page surgery on-call [phone] (RNF) or [phone] (ICU) SIGNATURE: Oscar Sifuentes MD PATIENT NAME: Desiree Ames DATE: November 12, 2023 TIME: 3:54 PM PAGER/CONTACT #: [phone] Normal [facility] Basic metabolic 2000 panelon 11-12-2023 Anion gap [Moles/Vol] 11 mmol/L Normal 9-18 [facility] Comment on above: Order Comment: Speci men Type: BLOOD SPECIMENOrdering Facility: [facility] Address: [address] [place] [address] Performed By: #### 2 4321-2, LIPNF, 6-3 ####[facility] LABORATORYCLIA [id number] [place] [address] [place] Calcium [Mass/Vol] 8.2 mg/dL Low 8.5-10.2 [facility] Comment on above: Order Comment: Speci men Type: BLOOD SPECIMENOrdering Facility: [facility] Address: [address] [place] [address] Performed By: #### 2 4321-2, LIPNF, 6-3 ####[facility] LABORATORYCLIA [id number] [place] [address] [place] Chloride [Moles/Vol] 102 mmol/L Normal 97-105 [facility] Comment on above: Order Comment: Speci men Type: BLOOD SPECIMENOrdering Facility: [facility] Address: [address] [place] [address] Performed By: #### 2 4321-2, LIPNF, 3016-3 ####[facility] LABORATORYCLIA [id number] [place] [address] [place] CO2 [Moles/Vol] 20 mmol/L Low 22-30 [facility] Comment on above: Order Comment: Speci men Type: BLOOD SPECIMENOrdering Facility: [facility] Address: [address] [place] [address] Performed By: #### 2 4321-2, LIPNF, 3016-3 ####[facility] LABORATORYCLIA [id number] [address] STATES OF [facility] Creatinine [Mass/Vol] 1.80 mg/dL High 0.73-1.22 [facility] Comment on above: Order Comment: Emerson ribeiro Type: BLOOD SPECIMENOrdering Facility: [facility] Address: [address] [place] [address] Performed By: #### 2 4321-2, TRISH, 3015-3 ####[facility] LABORATORYIA [id number] [address] Creatinine and Glomerular filtration rate.predicted panel (S/P/Bld) 36 mL/min/1.73m??? Low >=60 [facility] Comment on above: Order Comment: Emerson ribeiro Type: BLOOD SPECIMENOrdering Facility: [facility] Address: [address] [place] [address] Result Comment: Dottie mated Glomerular Filtration Rate (eGFR) is calculated using the 2020 CKD-EPI creatinine equation. This equation utilizes serum creatinine, sex, and age as parameters. The creatinine assay has traceable calibration to isotope dilution-mass spectrometry. Refer to KDIGO guidelines for clinical interpretation. In patients with unstable renal function, e.g. those with acute kidney injury, the eGFR may not accurately reflect actual GFR. Performed By: #### 2 4321-2, TRISH, 3015-3 ####[facility] LABORATORYIA [id number] [address] STATES OF [facility] Glucose [Mass/Vol] 179 mg/dL High 74-99 [facility] Comment on above: Order Comment: Emerson ribeiro Type: BLOOD SPECIMENOrdering Facility: [facility] Address: [address] [place] [address] Result Comment: The [place] Diabetes Association (ADA) provides guidance for cutoff values for fasting glucose and random glucose. The ADA defines fasting as no caloric intake for at least 8 hours. Fasting plasma glucose results between 100 to 125 mg/dL indicate increased risk for diabetes (prediabetes). Fasting plasma glucose results greater than or equal to 126 mg/dL meet the criteria for diagnosis of diabetes. In the absence of unequivocal hyperglycemia, results should be confirmed by repeat testing. In a patient with classic symptoms of hyperglycemia or hyperglycemic crisis, random plasma glucose results greater than or equal to 200 mg/dL meet the criteria for diagnosis of diabetes. Reference: Standards of Medical Care in Diabetes 2016, [place] Diabetes Association. Diabetes Care. 2016.39(Suppl 1). Performed By: #### 2 4321-2, LIPNF, 3015-3 ####[facility] LABORATORYCLIA [id number] [place] [address] [place] Potassium [Moles/Vol] 5.1 mmol/L Normal 3.7-5.1 [facility] Comment on above: Order Comment: Speci men Type: BLOOD SPECIMENOrdering Facility: [facility] Address: [address] [place] [address] Performed By: #### 2 4321-2, LIPNF, 3015-3 ####[facility] Systems[facility] LABORATORYCLIA [id number] [place] [address] [place] Sodium [Moles/Vol] 133 mmol/L Low 136-144 [facility] Comment on above: Order Comment: Speci men Type: BLOOD SPECIMENOrdering Facility: [facility] Address: [address] [place] [address] Performed By: #### 2 1-2, LIPNF, 3015-3 ####[facility] SystemsMON [facility] LABORATORYCLIA [id number] [place] [address] [place] Urea nitrogen [Mass/Vol] 30 mg/dL High 9-24 [facility] Comment on above: Order Comment: Speci men Type: BLOOD SPECIMENOrdering Facility: [facility] Address: [address] [place] [address] Performed By: #### 2 4321-2, LIPNF, 3015-3 ####[facility] LABORATORYCLIA [id number] [place] [address] [place] Anion gap [Moles/Vol] 11 mmol/L Normal 9-18 [facility] Comment on above: Order Comment: Speci men Type: BLOOD SPECIMENOrdering Facility: [facility] Address: [address] [place] [address] Performed By: #### 2 4321-2 ####[facility] LABORATORYCLIA [id number] [place] [address] [place] Calcium [Mass/Vol] 9.0 mg/dL Normal 8.5-10.2 [facility] Comment on above: Order Comment: Speci men Type: BLOOD SPECIMENOrdering Facility: [facility] Address: [address] [place] [address] Performed By: #### 2 4321-2 ####[facility] LABORATORYCLIA [id number] [place] [address] [place] Chloride [Moles/Vol] 97 mmol/L Normal 97-105 [facility] Comment on above: Order Comment: Speci men Type: BLOOD SPECIMENOrdering Facility: [facility] Address: [address] [place] [address] Performed By: #### 2 4321-2 ####[facility] LABORATORYCLIA [id number] [place] [address] [place] CO2 [Moles/Vol] 24 mmol/L Normal 22-30 [facility] Comment on above: Order Comment: Speci men Type: BLOOD SPECIMENOrdering Facility: [facility] Address: [address] [place] [address] Performed By: #### 2 4321-2 ####[facility] LABORATORYCLIA [id number] [place] [address] [place] Creatinine [Mass/Vol] 2.09 mg/dL High 0.73-1.22 [facility] Comment on above: Order Comment: Speci men Type: BLOOD SPECIMENOrdering Facility: [facility] Address: [address] [place] [address] Performed By: #### 2 4321-2 ####[facility] LABORATORYCLIA [id number] [address] Creatinine and Glomerular filtration rate.predicted panel (S/P/Bld) 30 mL/min/1.73m??? Low >=60 [facility] Comment on above: Order Comment: Speci men Type: BLOOD SPECIMENOrdering Facility: [facility] Address: [address] [place] [address] Result Comment: Dottie mated Glomerular Filtration Rate (eGFR) is calculated using the 2020 CKD-EPI creatinine equation. This equation utilizes serum creatinine, sex, and age as parameters. The creatinine assay has traceable calibration to isotope dilution-mass spectrometry. Refer to KDIGO guidelines for clinical interpretation. In patients with unstable renal function, e.g. those with acute kidney injury, the eGFR may not accurately reflect actual GFR. Performed By: #### 2 4321-2 ####[facility] LABORATORYCLIA [id number] [place] [address] [place] Glucose [Mass/Vol] 176 mg/dL High 74-99 [facility] Comment on above: Order Comment: Emerson ribeiro Type: BLOOD SPECIMENOrdering Facility: [facility] Address: [address] [place] [address] Result Comment: The [place] Diabetes Association (ADA) provides guidance for cutoff values for fasting glucose and random glucose. The ADA defines fasting as no caloric intake for at least 8 hours. Fasting plasma glucose results between 100 to 125 mg/dL indicate increased risk for diabetes (prediabetes). Fasting plasma glucose results greater than or equal to 126 mg/dL meet the criteria for diagnosis of diabetes. In the absence of unequivocal hyperglycemia, results should be confirmed by repeat testing. In a patient with classic symptoms of hyperglycemia or hyperglycemic crisis, random plasma glucose results greater than or equal to 200 mg/dL meet the criteria for diagnosis of diabetes. Reference: Standards of Medical Care in Diabetes 2016, [place] Diabetes Association. Diabetes Care. 2016.39(Suppl 1). Performed By: #### 2 4321-2 ####[facility] LABORATORYCLIA [id number] [place] [address] [place] Potassium [Moles/Vol] 4.0 mmol/L Normal 3.7-5.1 [facility] Comment on above: Order Comment: Emerson ribeiro Type: BLOOD SPECIMENOrdering Facility: [facility] Address: [address] [place] [address] Performed By: #### 2 4321-2 ####[facility] LABORATORYCLIA [id number] [address] Sodium [Moles/Vol] 132 mmol/L Low 136-144 [facility] Comment on above: Order Comment: Speci men Type: BLOOD SPECIMENOrdering Facility: [facility] Address: [address] [place] [address] Performed By: #### 2 4321-2 ####[facility] LABORATORYCLIA [id number] [address] [place] Urea nitrogen [Mass/Vol] 34 mg/dL High 9-24 [facility] Comment on above: Order Comment: Speci men Type: BLOOD SPECIMENOrdering Facility: [facility] Address: [address] [place] [address] Performed By: #### 2 4321-2 ####[facility] LABORATORYCLIA [id number] [address] [place] [facility] CBC panel Auto (Bld)on 11-12 Erythrocyte distribution width (RBC) [Ratio] 14.9 % Normal 11.5-15.0 [facility] Comment on above: Order Comment: Speci men Type: BLOOD SPECIMENOrdering Facility: [facility] Address: [address] [place] [address] Performed By: #### 5 8410-2 ####[facility] LABORATORYCLIA [id number] [address] STATES [facility] Hematocrit (Bld) [Volume fraction] 37.8 % Low 39.0-51.0 [facility] Comment on above: Order Comment: Speci men Type: BLOOD SPECIMENOrdering Facility: [facility] Address: [address] [place] [address] Performed By: #### 5 8410-2 ####[facility] LABORATORYCLIA [id number] [address] [place] Hemoglobin (Bld) [Mass/Vol] 11.8 g/dL Low 13.0-17.0 [facility] Comment on above: Order Comment: Speci men Type: BLOOD SPECIMENOrdering Facility: [facility] Address: [address] [place] [address] Performed By: #### 5 8410-2 ####[facility] LABORATORYCLIA [id number] [address] MCH (RBC) [Entitic mass] 26.2 pg Normal 26.0-34.0 [facility] Comment on above: Order Comment: Speci men Type: BLOOD SPECIMENOrdering Facility: [facility] Address: [address] [place] [address] Performed By: #### 5 8410-2 ####[facility] LABORATORYCLIA [id number] [address] MCHC (RBC) [Mass/Vol] 31.2 g/dL Normal 30.5-36.0 [facility] Comment on above: Order Comment: Speci men Type: BLOOD SPECIMENOrdering Facility: [facility] Address: [address] [place] [address] Performed By: #### 5 8410-2 ####[facility] LABORATORYCLIA [id number] [address] MCV (RBC) [Entitic vol] 84.[address] fL Normal 80.0-100.0 [facility] Comment on above: Order Comment: Speci men Type: BLOOD SPECIMENOrdering Facility: [facility] [facility] Address: [address] [place] [address] Performed By: #### 5 8410-2 ####[facility] LABORATORYCLIA [id number] [address] Nucleated RBC (Bld) [#/Vol] 10*3/uL Normal <0.01 [facility] Comment on above: Order Comment: Speci men Type: BLOOD SPECIMENOrdering Facility: [facility] Address: [address] [place] [address] Performed By: #### 5 8410-2 ####[facility] LABORATORYCLIA [id number] [address] Platelet mean volume (Bld) [Entitic vol] 10.3 fL Normal 9.0-12.7 [facility] Comment on above: Order Comment: Speci men Type: BLOOD SPECIMENOrdering Facility: [facility] Address: [address] [place] [address] Performed By: #### 5 8410-2 ####[facility] LABORATORYCLIA [id number] [address] STATES OF [facility] Platelets (Bld) [#/Vol] 228 10*3/uL Normal 150-400 [facility] Comment on above: Order Comment: Speci men Type: BLOOD SPECIMENOrdering Facility: [facility] Address: [address] [place] [address] Performed By: #### 5 8410-2 ####[facility] LABORATORYCLIA [id number] [address] [place] RBC (Bld) [#/Vol] 4.50 10*6/uL Normal 4.20-6.00 [facility] Comment on above: Order Comment: Speci men Type: BLOOD SPECIMENOrdering Facility: [facility] Address: [address] [place] [address] Performed By: #### 5 8410-2 ####[facility] LABORATORYCLIA [id number] [address] [place] WBC (Bld) [#/Vol] 17.74 10*3/uL High 3.70-11.00 [facility] Comment on above: Order Comment: Speci men Type: BLOOD SPECIMENOrdering Facility: [facility] Address: [address] [place] [address] Performed By: #### 5 8410-2 ####[facility] LABORATORYCLIA [id number] [address] [place] Erythrocyte distribution width (RBC) [Ratio] 14.8 % Normal 11.5-15.0 [facility] Comment on above: Order Comment: Speci men Type: BLOOD SPECIMENOrdering Facility: [facility] Address: [address] [place] [address] Performed By: #### 5 8410-2 ####[facility] LABORATORYCLIA [id number] [address] Hematocrit (Bld) [Volume fraction] 28.0 % Low 39.0-51.0 [facility] Comment on above: Order Comment: Speci men Type: BLOOD SPECIMENOrdering Facility: [facility] Address: [address] [place] [address] Performed By: #### 5 8410-2 ####[facility] LABORATORYCLIA [id number] [address] OF [facility] Hemoglobin (Bld) [Mass/Vol] 8.4 g/dL Low 13.0-17.0 [facility] Comment on above: Order Comment: Speci men Type: BLOOD SPECIMENOrdering Facility: [facility] Address: [address] [place] [address] Performed By: #### 5 8410-2 ####[facility] LABORATORYCLIA [id number] [address] MCH (RBC) [Entitic mass] 25.4 pg Low 26.0-34.0 [facility] Comment on above: Order Comment: Speci men Type: BLOOD SPECIMENOrdering Facility: [facility] Address: [address] [place] [address] Performed By: #### 5 8410-2 ####[facility] LABORATORYCLIA [id number] [address] [place] MCHC (RBC) [Mass/Vol] 30.0 g/dL Low 30.5-36.0 [facility] Comment on above: Order Comment: Speci men Type: BLOOD SPECIMENOrdering Facility: [facility] Address: [address] [place] [address] Performed By: #### 5 8410-2 ####[facility] LABORATORYCLIA [id number] [address] MCV (RBC) [Entitic vol] 84.6 fL Normal 80.0-100.0 [facility] Comment on above: Order Comment: Speci men Type: BLOOD SPECIMENOrdering Facility: [facility] Address: [address] [place] [address] Performed By: #### 5 8410-2 ####[facility] LABORATORYCLIA [id number] [address] [place] Nucleated RBC (Bld) [#/Vol] 10*3/uL Normal <0.01 [facility] Comment on above: Order Comment: Speci men Type: BLOOD SPECIMENOrdering Facility: [facility] Address: [address] [place] [address] Performed By: #### 5 8410-2 ####[facility] LABORATORYCLIA [id number] [address] [place] Platelet mean volume (Bld) [Entitic vol] 10.5 fL Normal 9.0-12.7 [facility] Comment on above: Order Comment: Speci men Type: BLOOD SPECIMENOrdering Facility: [facility] Address: [address] [place] [address] Performed By: #### 5 8410-2 ####[facility] LABORATORYCLIA [id number] [address] [place] Platelets (Bld) [#/Vol] 258 10*3/uL Normal 150-400 [facility] Comment on above: Order Comment: Speci men Type: BLOOD SPECIMENOrdering Facility: [facility] Address: [address] [place] [address] Performed By: #### 5 8410-2 ####[facility] LABORATORYCLIA [id number] [place] [address] [place] RBC (Bld) [#/Vol] 3.31 10*6/uL Low 4.20-6.00 [facility] Comment on above: Order Comment: Speci men Type: BLOOD SPECIMENOrdering Facility: [facility] Address: [address] [place] [address] Performed By: #### 5 8410-2 ####[facility] LABORATORYCLIA [id number] [place] [address] [place] WBC (Bld) [#/Vol] 5.82 10*3/uL Normal 3.70-11.00 [facility] Comment on above: Order Comment: Speci men Type: BLOOD SPECIMENOrdering Facility: [facility] Address: [place] [address] Performed By: #### 5 8410-2 ####[facility] LABORATORYCLIA [id number] [place] [address] [place] CONSULTon 11-12-2023 CONSULT HNO ID: [id number] Author: SOLOMON SANDOVAL MD Service: Neurology General Author Type: Physician Type: Consults Filed: 11/13/2023 08:36 Note Text: NEURO STROKE INITIAL CONSULT SERVICE DATE: 11/12/2023 SERVICE TIME: 5:23 PM REASON FOR STROKE EVALUATION: stroke-like symptoms, aphasia Subjective HPI: Desiree Ames is an 88 year old male with pmhx of PAD, CAD, HTN, HLD, BPH, COPD, CKD, HFpEF, MVD. Patient has a history of peripheral artery disease. Patient admitted to [facility]ICU from [facility] s/p femoral endarterectomy. Patient was a stroke alert today @ 1647 for aphasia and headache. LKW today, 11/12 @ 1337. 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 (HCC) ([facility]) 08/21/2023 Atherosclerosis of [place] artery of both lower extremities with intermittent claudication ([facility]) 08/21/2023 Atherosclerosis of [place] artery of left lower extremity with rest pain ([facility]) 10/18/2023 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 Hilliard. Coronary atherosclerosis of unspecified type of vessel, [place] or graft 06/13/2005 Diverticulitis of colon (without [...] MAJOR SURGERY 1998 With inguinal hernia repair [facility] INCL FLUOR GDNCE DX W/CELL WASHG [...] percut, Prox. RCA. TRANSURETHRAL ELEC-SURG PROSTATECTOM 03/07/2022 Social History Tobacco Use Smoking status: Former Packs/day: 0.50 Years: 50.00 Additional pack years: 0.00 Total pack years: 25.00 Types: Cigarettes, Cigars Quit date: 02/05/2008 Years since quittin.7 Smokeless tobacco: Never Vaping Use Vaping Use: Never used Substance Use Topics Alcohol use: Yes Comment: Rare Drug use: No FAMILY HISTORY Problem Relation Age of Onset Alzheimer's Disease Mother age 92 Arthritis Mother hip replacement Diabetes Father alive at 93 Coronary Artery Disease Father Stroke Father Hypertension Father Prostate Cancer Father Cataract Father Hypertension Brother Heart Brother valve replacement Lipids Brother Prostate C (more content not included)... Normal [facility] CT BRAIN ATTACK WO IVCONon 0 11-12-2023 CT BRAIN ATTACK WO IVCON * * *Final Repo rt* * * DATE OF EXAM: Nov 12 2023 5:05PM [facility] 0502 - CT BRAIN ATTACK WO IVCON / PROCEDURE REASON: Stroke, follow up * * * * Physician Interpretation * * * * EXAMINATION: CT BRAIN ATTACK WO IVCON CLINICAL HISTORY: Stroke, follow up Brain attack. TECHNIQUE: Routine CT of the brain without IV contrast. MQ: CTBA_4 CT Radiation dose: Integrated CT Dose-Length Product (DLP) for this visit = 807 mGy*cm CT Dose Reduction Employed: Automated exposure control(AEC) and iterative recon COMPARISON: Brain MRI 03/06/2013.. RESULT: Acute ischemic change: None. ASPECT Score = 10 Hemorrhage: No evidence of acute intracranial hemorrhage. ECASS hemorrhagic transformation score: Not Applicable Mass Lesion / Mass Effect: There is no evidence of an intracranial mass or extraaxial fluid collection. No significant mass effect. Chronic change: Scattered patchy foci of low attenuation are present within white matter which is a nonspecific finding but likely represents mild microvascular ischemia. There is calcified atherosclerotic plaque involving the bilateral carotid siphons and the intracranial vertebral arteries. Parenchyma: There is mild generalized volume loss for age. The brain parenchyma is otherwise within normal limits for age. Ventricles: Ventriculomegaly concordant with the degree of parenchymal volume loss. Other: The visualized calvarium, skull base, orbits and extracranial soft tissues are normal. [employer] (topogram) images: No significant findings. IMPRESSION: No acute findings. No acute infarction, intracranial hemorrhage or intracranial mass lesion. CRITICAL TEST/RESULTS: Notification initiated at 11/12/2023 5:12 PM. Communicated with Kayla Grijalva NP on 11/12/2023 5:13 PM . CR_1 Footwear Sales Representative: SRIDEVI Transcribe Date/Time: Nov 12 2023 5:09P Dictated by : XIOMARA ABBASI MD This examination was interpreted and the report reviewed and electronically signed by: XIOMARA ABBASI MD on Nov 12 2023 5:13PM EST [id number] CRITICAL!! Invalid Interpretation Code [facility] HbA1c (Bld)on 11-12-2023 Average glucose Estimated from glycated hemoglobin (Bld) [Mass/Vol] 177 mg/dL Normal [facility] Comment on above: Order Comment: Emerson ribeiro Type: BLOOD SPECIMENOrdering Facility: [facility] Address: [address] [place] [address] Result Comment: eAG: (Estimated average glucose) is a calculated value from HgbA1c and is energy conservation representative of the average blood glucose level in the last 2-3 month period. Performed By: #### 5 5454-3 ####[facility] LABCLIA [id number] [facility] [id number] [address] [place] HbA1c (Bld) [Mass fraction] 7.8 % High 4.3-5.6 [facility] Comment on above: Order Comment: [facility]eiro Type: BLOOD SPECIMENOrdering Facility: [facility] Address: [address] [place] [address] Result Comment: Amer ican Diabetes Association guidelines indicate that patients with HgbA1c in the range 5.7-6.4% are at increased risk for development of diabetes, and intervention by lifestyle modification may be beneficial. HgbA1c greater or equal to 6.5% is considered diagnostic of diabetes. Performed By: #### 5 5454-3 ####[facility] LABCLIA [id number] [facility] [id number] V[place] [id number] [facility] [place] LIPID PANEL, NONFASTINGon Cholesterol [Mass/Vol] 103 mg/dL Normal <200 [facility] Comment on above: Order Comment: Speci men Type: BLOOD SPECIMENOrdering Facility: [facility] Address: [address] [place] [address] Result Comment: <200 mg/dL, Desirable 200-239 mg/dL, Borderline high >239 mg/dL, High Performed By: #### 2 4321-2, LIPNF, 3016-3 ####[facility] LABORATORYCLIA [id number] [address] STATES OF [facility] HDL CHOLESTEROL, NF 28 mg/dL Low >39 [facility] Comment on above: Order Comment: Speci men Type: BLOOD SPECIMENOrdering Facility: [facility] Address: [address] [place] [address] Result Comment: 40-5 9 mg/dL, Acceptable >59 mg/dL, High: Negative risk factor for coronary heart disease <40 mg/dL, Low: Positive risk factor for coronary heart disease Performed By: #### 2 4321-2, LIPNF, 6-3 ####[facility] LABORATORYCLIA [id number] [address] STATES [facility] LDL CHOLESTEROL, NF 51 mg/dL Normal <100 [facility] Comment on above: Order Comment: Speci men Type: BLOOD SPECIMENOrdering Facility: [facility] Address: [address] [place] [address] Result Comment: <100 mg/dL, Optimal 100-129 mg/dL, Near optimal/above optimal 130-159 mg/dL, Borderline high 160-189 mg/dL, High >189 mg/dL, Very high Secondary prevention optimal LDL Cholesterol levels are recommended to be < 70 mg/dL Performed By: #### 2 4321-2, LIPNF, 3016-3 ####[facility] LABORATORYCLIA [id number] [address] [place] LDL/HDL RATIO, NF 1.82 mg/dL Normal <2.54 [facility] Comment on above: Order Comment: Speci men Type: BLOOD SPECIMENOrdering Facility: [facility] Address: [address] [place] [address] Result Comment: Patrice haq: 1. National Cholesterol Education Program ATP III Guideline At-A-Glance Quick Desk Reference: National Heart, Lung, and Blood Mona. National Institutes of Health. 2001: NIH Publication No. 01-3305. 2. An International Atherosclerosis Society position paper: global recommendations for the management of dyslipidemia: executive summary, Atherosclerosis. 2014: 232(2):410-413. Performed By: #### 2 4321-2, LIPSAHRA, 3015-3 ####[facility] LABORATORYCLIA [id number] [address] NON HDL CHOL, NF 75 mg/dL Normal <130 [facility] Comment on above: Order Comment: [facility] Type: BLOOD SPECIMENOrdering Facility: [facility] Address: [address] [place] [address] Result Comment: <130 mg/dL, Optimal 130-159 mg/dL, Near optimal/above optimal 160-189 mg/dL, Borderline high 190-219 mg/dL, High >219 mg/dL, Very high Secondary prevention optimal non HDL Cholesterol levels are recommended to be <100 mg/dL Performed By: #### 2 4321-2, LIPNF, 3015-3 ####[facility] LABORATORYCLIA [id number] [address] [place] T CHOL/HDL RATIO NF 3.68 mg/dL Normal <5.10 [facility] Comment on above: Order Comment: Mauricioi men Type: BLOOD SPECIMENOrdering Facility: [facility] Address: [address] [place] [address] Performed By: #### 2 4321-2, LIPNF, 3015-3 ####[facility] LABORATORYCLIA [id number] [address] TRIGLYCERIDES, NF 119 mg/dL Normal <150 [facility] Comment on above: Order Comment: Speci men Type: BLOOD SPECIMENOrdering Facility: [facility] Address: [address] [place] [address] Result Comment: <150 mg/dL, Normal 150-199 mg/dL, Borderline high 200-499 mg/dL, High >499 mg/dL, Very high Performed By: #### 2 4321-2, LIPNF, 3016-3 ####[facility] LABORATORYCLIA [id number] [place] [id number] [facility] VLDL CHOLESTEROL, NF 24 mg/dL Normal <30 [facility] Comment on above: Order Comment: Speci men Type: BLOOD SPECIMENOrdering Facility: [facility] Address: [address] [place] [address] Performed By: #### 2 4321-2, LIPNF, 6-3 ####[facility] LABORATORYCLIA [id number] [place] [id number] [facility] [place] MRA BRAIN WO IVCONon 024 MRA BRAIN WO IVCON * * *Final Report* * * DATE OF EXAM: Nov 12 2023 9:36PM [facility] 0272 - MRA BRAIN WO IVCON / PROCEDURE REASON: Stroke, follow up * * * * Physician Interpretation * * * * EXAMINATION: MRI BRAIN WO IVCON, MRA CAROTID WO IVCON, MRA BRAIN WO IVCON CLINICAL HISTORY: Stroke: Acute (accession [id number]), Otherstroke (accession [id number]) Stroke, follow up TECHNIQUE: Routine noncontrast MRI protocol including diffusion images. Intracranial and extracranial 3D [id number] MRA. Post-processed 3D maximum intensity projections created, reviewed and archived. MQ: MRBBWO_3 COMPARISON: None. RESULT: Generalized motion degradation on all sequences as well as the head and neck MRA. Allowing for this limitation: BRAIN: Acute Change: There is no evidence of restricted diffusion to suggest an acute infarct. Hemorrhage: No acute hemorrhage. A single punctate focus of susceptibility which may reflect remote microhemorrhage in the left occipital lobe. Mass Lesion/ Mass Effect: No evidence of an intracranial mass or extra-axial fluid collection. No significant mass effect. Chronic Change: Scattered patchy areas of increased T2 and FLAIR signal are present in the supratentorial white matter which is a nonspecific finding but likely represents mild chronic microvascular ischemia. Parenchyma: There is mild generalized parenchymal volume loss. The brain parenchyma is otherwise within normal limits of signal intensity and morphology. Ventricles: Normal caliber and morphology. Skull Base: Hypothalamic and pituitary region are grossly normal. Craniocervical junction is normal. No significant marrow replacement process. Vasculature: Major intracranial arterial structures, and dural venous sinuses show typical flow void, suggesting patency by spin echo criteria. Other: Minimal sinus mucosal thickening INTRACRANIAL MRA: Anterior circulation: The intracranial ICAs, ACAs, and MCAs are patent without stenosis. No saccular aneurysm. Vertebrobasilar circulation: The vertebral, basilar, and posterior cerebral arteries and their major branch vessels are patent without stenosis. No saccular aneurysm. EXTRACRANIAL MRA: Allowing for mild respiratory motion: Carotid Stenosis: Right Common: No significant stenosis. Right Internal Plaque: No significant plaque formation. Right Internal Carotid Stenosis (% by NASCET Criteria): Less than 50% Left Common: No significant stenosis. Left Internal Carotid Plaque: No significant plaque formation. Left Internal Carotid Stenosis (% by NASCET Criteria): Less than 50% Cervical Vertebral Arteries: Patency: Bilateral Dominance: Left IMPRESSION: No acute intracranial abnormality. No acute abnormality of the head MRA. Mildly motion degraded neck MRA. No evidence of flow-limiting stenosis. Footwear Sales Representative: PSCB Transcribe Date/Time: Nov 12 2023 9:43P Dictated by : ORTIZ BUSTAMANTE MD This examination was interpreted and the report reviewed and electronically signed by: ORTIZ BUSTAMANTE MD on Nov 12 2023 10:13PM EST [id number] Normal [facility] MRA CAROTID WO IVCONon 11-12 MRA CAROTID WO IVCON * * *Final Report* * * DATE OF EXAM: Nov 12 2023 9:36PM [facility] 0275 - MRA CAROTID WO IVCON / PROCEDURE REASON: Stroke, follow up * * * * Physician Interpretation * * * * EXAMINATION: MRI BRAIN WO IVCON, MRA CAROTID WO IVCON, MRA BRAIN WO IVCON CLINICAL HISTORY: Stroke: Acute (accession [id number]), Otherstroke (accession [id number]) Stroke, follow up TECHNIQUE: Routine noncontrast MRI protocol including diffusion images. Intracranial and extracranial 3D [id number] MRA. Post-processed 3D maximum intensity projections created, reviewed and archived. MQ: MRBBWO_3 COMPARISON: None. RESULT: Generalized motion degradation on all sequences as well as the head and neck MRA. Allowing for this limitation: BRAIN: Acute Change: There is no evidence of restricted diffusion to suggest an acute infarct. Hemorrhage: No acute hemorrhage. A single punctate focus of susceptibility which may reflect remote microhemorrhage in the left occipital lobe. Mass Lesion/ Mass Effect: No evidence of an intracranial mass or extra-axial fluid collection. No significant mass effect. Chronic Change: Scattered patchy areas of increased T2 and FLAIR signal are present in the supratentorial white matter which is a nonspecific finding but likely represents mild chronic microvascular ischemia. Parenchyma: There is mild generalized parenchymal volume loss. The brain parenchyma is otherwise within normal limits of signal intensity and morphology. Ventricles: Normal caliber and morphology. Skull Base: Hypothalamic and pituitary region are grossly normal. Craniocervical junction is normal. No significant marrow replacement process. Vasculature: Major intracranial arterial structures, and dural venous sinuses show typical flow void, suggesting patency by spin echo criteria. Other: Minimal sinus mucosal thickening INTRACRANIAL MRA: Anterior circulation: The intracranial ICAs, ACAs, and MCAs are patent without stenosis. No saccular aneurysm. Vertebrobasilar circulation: The vertebral, basilar, and posterior cerebral arteries and their major branch vessels are patent without stenosis. No saccular aneurysm. EXTRACRANIAL MRA: Allowing for mild respiratory motion: Carotid Stenosis: Right Common: No significant stenosis. Right Internal Plaque: No significant plaque formation. Right Internal Carotid Stenosis (% by NASCET Criteria): Less than 50% Left Common: No significant stenosis. Left Internal Carotid Plaque: No significant plaque formation. Left Internal Carotid Stenosis (% by NASCET Criteria): Less than 50% Cervical Vertebral Arteries: Patency: Bilateral Dominance: Left IMPRESSION: No acute intracranial abnormality. No acute abnormality of the head MRA. Mildly motion degraded neck MRA. No evidence of flow-limiting stenosis. Footwear Sales Representative: PSCB Transcribe Date/Time: Nov 12 2023 9:43P Dictated by : ORTIZ BUSTAMANTE MD This examination was interpreted and the report reviewed and electronically signed by: ORTIZ BUSTAMANTE MD on Nov 12 2023 10:13PM EST [id number] Normal [facility] MRI BRAIN WO IVCONon 024 MRI BRAIN WO IVCON * * *Final Report* * * DATE OF EXAM: Nov 12 2023 9:36PM [facility] 0294 - MRI BRAIN WO IVCON / PROCEDURE REASON: Stroke, follow up * * * * Physician Interpretation * * * * EXAMINATION: MRI BRAIN WO IVCON, MRA CAROTID WO IVCON, MRA BRAIN WO IVCON CLINICAL HISTORY: Stroke: Acute (accession [id number]), Otherstroke (accession [id number]) Stroke, follow up TECHNIQUE: Routine noncontrast MRI protocol including diffusion images. Intracranial and extracranial 3D [id number] MRA. Post-processed 3D maximum intensity projections created, reviewed and archived. MQ: MRBBWO_3 COMPARISON: None. RESULT: Generalized motion degradation on all sequences as well as the head and neck MRA. Allowing for this limitation: BRAIN: Acute Change: There is no evidence of restricted diffusion to suggest an acute infarct. Hemorrhage: No acute hemorrhage. A single punctate focus of susceptibility which may reflect remote microhemorrhage in the left occipital lobe. Mass Lesion/ Mass Effect: No evidence of an intracranial mass or extra-axial fluid collection. No significant mass effect. Chronic Change: Scattered patchy areas of increased T2 and FLAIR signal are present in the supratentorial white matter which is a nonspecific finding but likely represents mild chronic microvascular ischemia. Parenchyma: There is mild generalized parenchymal volume loss. The brain parenchyma is otherwise within normal limits of signal intensity and morphology. Ventricles: Normal caliber and morphology. Skull Base: Hypothalamic and pituitary region are grossly normal. Craniocervical junction is normal. No significant marrow replacement process. Vasculature: Major intracranial arterial structures, and dural venous sinuses show typical flow void, suggesting patency by spin echo criteria. Other: Minimal sinus mucosal thickening INTRACRANIAL MRA: Anterior circulation: The intracranial ICAs, ACAs, and MCAs are patent without stenosis. No saccular aneurysm. Vertebrobasilar circulation: The vertebral, basilar, and posterior cerebral arteries and their major branch vessels are patent without stenosis. No saccular aneurysm. EXTRACRANIAL MRA: Allowing for mild respiratory motion: Carotid Stenosis: Right Common: No significant stenosis. Right Internal Plaque: No significant plaque formation. Right Internal Carotid Stenosis (% by NASCET Criteria): Less than 50% Left Common: No significant stenosis. Left Internal Carotid Plaque: No significant plaque formation. Left Internal Carotid Stenosis (% by NASCET Criteria): Less than 50% Cervical Vertebral Arteries: Patency: Bilateral Dominance: Left IMPRESSION: No acute intracranial abnormality. No acute abnormality of the head MRA. Mildly motion degraded neck MRA. No evidence of flow-limiting stenosis. Footwear Sales Representative: PSCB Transcribe Date/Time: Nov 12 2023 9:43P Dictated by : ORTIZ BUSTAMANTE MD This examination was interpreted and the report reviewed and electronically signed by: ORTIZ BUSTAMANTE MD on Nov 12 2023 10:13PM EST [id number] Normal [facility] OPERATIVE NOon 11-12-2023 OPERATIVE NO HNO ID: [id number] Author: RENE ZAPATA MD Service: Vascular Surgery Author Type: Physician Type: Operative Report Filed: 11/12/2023 17:08 Note Text: OPERATIVE/PROCEDURE REPORT LOG ID: [id number] Surgery/Procedure Date: 11/12/2023 Incision/Procedure Start Time:9:16 AM Incision Close/Procedure End Time: 3:27 PM Surgeon(s)/Proceduralis t(s) and Medical Insurance Coder(s): Surgeon(s) and Role: * Rene Zapata MD - Primary * Oscar Sifuentes MD - Resident - Assisting Procedure(s): Left ileofemoral endarterectomy and bovine patch profundaplasty Left lower extremity angiogram Intraoperative duplex ultrasound of patch repair Anesthesia: General Operative indication: 88 year old male who presents with left leg rest pain for a left common femoral endarterectomy and profundoplasty with bovine pericardial patch angioplasty. Procedure details: Patient was taken to the operating room and laid supine on the operating room table. After time-in, anesthesia was induced by the anesthesiologist. The abdomen and bilateral groins were prepped and draped. A longitudinal incision was made in the groin. The external iliac artery, common femoral artery, profunda and superficial femoral artery were mobilized and controlled with vessel loops. Heparin was given and ACT was checked every 30 minutes and heparin was then re-dosed accordingly. The vessels were clamped in the usual fashion. An arteriotomy was made with an 11 blade and Ruano scissors from external iliac artery to the PFA. Due to the significant calcification of the external iliac, there was bleeding from the proximal aspect of the arteriotomy with the clamp in place. Therefore, a #7 Michelle was advanced into the lumen and inflated to achieve proximal control. The SFA was chronically occluded. Next, endarterectomy was performed with a Brunswick elevator. The profunda was endarterectomized and the distal endpoint was secured with 7-0 prolene sutures. A bovine pericardial patch was used to close the arteriotomy using running 6-0 Prolene sutures. Prior to completing the patch, we de-aired and flushed the reconstruction. Doppler signals in the wound were appropriate. A left leg angiogram was then performed, a 5-Maori sheath was exchanged into the left TRAY PACKER. With the sheath positioned in the external iliac artery, angiography with runoff to the foot was performed with selected DSA runs completed in a stepwise fashion. There was brisk flow through the ileofemoral repair. At the distal end of the patch, there appeared to be a critical stenosis at the profunda. The SFA was occluded at its origin with reconstitution above the knee. The popliteal and Tibioperoneal trunk were patent. The anterior tibial artery was patent to the foot but diminutive in caliber. The peroneal artery occluded at the mid calf. The posterior tibial artery was patent throughout and provided dominant flow to the foot with poor pedal arch filling. The stenosis at the profunda was then further investigated with on table ultrasound imaging. This showed a < 50% stenosis at the distal patch where the endpoint was tacked circumferentially. There remained strong doppler signals past this segment and therefore no further intervention was taken. The wound was irrigated with antibiotic solution. The deep layers were closed with 2-0 and 3-0 running Vicryl suture, and the skin was closed with running 4-0 Monocryl suture.The skin was dressed with Sureclose. The patient was taken to the recovery area in stable condition. Pre-Op/Pre-Procedure Diagnosis: Iliac occlusive disease, peripheral artery disease with rest pain. Post-Op/Post-Procedure Diagnosis: Same Estimated Blood Loss: 1000 mls Specimens: ID Type Source Tests Collected by Time Destination A : PLAQUE FROM LEFT FEMORAL ARTERY Tissue PLAQUE SURGICAL PATHOLOGY Rene Zapata MD 11/12/2023 2:10 PM Implantable Devices: Implant Name Type Inv. Item Serial No. Workforce Advisor Lot No. LRB No. Used Action Model No. PATCH XENOSURE BOVINE PERICARDIAL TISSUE 8X.8CM VASCULAR STERILE - [id number] Patch PATCH XENOSURE BOVINE PERICARDIAL TISSUE 8X.8CM VASCULAR STERILE 0000 [facility] [place] [facility] [id number] Left 1 Implanted [id number] PLEDGET CARDIOVASCULAR 3/16X.25IN THK1.65MM RECTANGLE PTFE FELT - [id number] Fabric PLEDGET CARDIOVASCULAR 3/16X.25IN THK1.65MM RECTANGLE PTFE FELT BARD PERIPHERAL VASCULAR [id number] Left 1 Implanted [id number] Drains: None Complications: None I/primary surgeon/proceduralist performed the procedure with assistance. Resident closed, under direct supervision and the remainder of the procedure was performed by the primary surgeon/proceduralist with assistance. Rene Zapata MD Normal [facility] SURGICAL PATHOLOGYon 024 CASE REPORT Normal [facility] Comment on above: Order Comment: Emerson ribeiro Type: TISSUE SPECIMEN Ordering Facility: [facility] Address: [address] [place] [address] Result Comment: Surg ical Pathology Report Case: [id number] Authorizing Provider: Rene Zapata MD Collected: 11/12/2023 02:10 PM Ordering Location: [facility] Received: 11/13/2023 05:39 AM Pathologist: Donna Neumann MD Specimen: PLAQUE, PLAQUE FROM LEFT FEMORAL ARTERY Performed By: #### S #### [facility] CLIA [id number] [address] OF [facility] CLINICAL HISTORY Normal [facility] Comment on above: Order Comment: Emerson ribeiro Type: TISSUE SPECIMEN Ordering Facility: [facility] Address: [address] [place] [address] Result Comment: Pre- op diagnosis: 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 Performed By: #### S #### [facility] CLIA [id number] [address] [place] [address] FINAL PERFORMING LAB Normal [facility] Comment on above: Order Comment: Speci men Type: TISSUE SPECIMEN Ordering Facility: [facility] Address: [address] [place] [address] Result Comment: Diag nostic interpretation performed at [facility], [address] [place] [address] CLIA# [id number] School Inspector: Ben Cheng M.D. Performed By: #### S #### [facility] CLIA [id number] [address] GROSS DESCRIPTION A. PLAQUE Normal [facility] Comment on above: Order Comment: Emerson ribeiro Type: TISSUE SPECIMEN Ordering Facility: [facility] Address: [address] [place] [address] Result Comment: Rece ived in form labeled plaque from left femoral artery are multiple salinas plaque-like segments of material aggregating to 10.0 x 2.3 x 1.9 cm. Calcifications are present. Ulceration is present. An attached thrombus is not seen. Cutter 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 sections are submitted in formalin and one cassette following a brief period of decalcification. Gross examination performed at [facility], [address] [place] [address] KVB November 13, 2023 10:07 AM Performed By: #### S #### [facility] CLIA [id number] [address] [place] [address] TSH SerPl-aCncon 11-12-2023 TSH Qn 3.080 m[IU]/L Normal 0.270-4.200 [facility] Comment on above: Order Comment: Speci men Type: BLOOD SPECIMENOrdering Facility: [facility] Address: [address] [place] [address] Performed By: #### 2 4321-2, LIPNF, 3016-3 ####[facility]ORYCLIA [id number] [address] aPTT PPPon 11-12-2023 aPTT Coag (PPP) [Time] 31.0 s Normal 23.0-32.4 [facility] Comment on above: Order Comment: Speci men Type: BLOOD SPECIMENOrdering Facility: [facility] Address: [address] [place] [address] Performed By: #### 1 4979-9 ####[facility]ORYCLIA [id number] [place] [address] [place] Basic metabolic 2000 panelon 11-11-2023 Anion gap [Moles/Vol] 12 mmol/L Normal 9-18 [facility] Comment on above: Order Comment: Speci men Type: BLOOD SPECIMENOrdering Facility: [facility] Address: [address] [place] [address] Performed By: #### 2 4321-2 ####[facility]ORYCLIA [id number] [place] [address] [place] Calcium [Mass/Vol] 9.4 mg/dL Normal 8.5-10.2 [facility] Comment on above: Order Comment: Speci men Type: BLOOD SPECIMENOrdering Facility: [facility] Address: [address] [place] [address] Performed By: #### 2 4321-2 ####[facility]ORYCLIA [id number] [place] [address] [place] Chloride [Moles/Vol] 100 mmol/L Normal 97-105 [facility] Comment on above: Order Comment: Speci men Type: BLOOD SPECIMENOrdering Facility: [facility] Address: [address] [place] [address] Performed By: #### 2 4321-2 ####[facility]ORYCLIA [id number] [place] [address] [place] CO2 [Moles/Vol] 24 mmol/L Normal 22-30 [facility] Comment on above: Order Comment: Speci men Type: BLOOD SPECIMENOrdering Facility: [facility] Address: [address] [place] [address] Performed By: #### 2 4321-2 ####[facility] [id number] [place] [address] [place] Creatinine [Mass/Vol] 1.78 mg/dL High 0.73-1.22 [facility] Comment on above: Order Comment: Emerson ribeiro Type: BLOOD SPECIMENOrdering Facility: [facility] Address: [address] [place] [address] Performed By: #### 2 4321-2 ####[facility]ATORYCLIA [id number] [place] [id number] [facility] Creatinine and Glomerular filtration rate.predicted panel (S/P/Bld) 37 mL/min/1.73m??? Low >=60 [facility] Comment on above: Order Comment: Emerson ribeiro Type: BLOOD SPECIMENOrdering Facility: [facility] Address: [address] [place] [address] Result Comment: Dottie mated Glomerular Filtration Rate (eGFR) is calculated using the 2020 CKD-EPI creatinine equation. This equation utilizes serum creatinine, sex, and age as parameters. The creatinine assay has traceable calibration to isotope dilution-mass spectrometry. Refer to KDIGO guidelines for clinical interpretation. In patients with unstable renal function, e.g. those with acute kidney injury, the eGFR may not accurately reflect actual GFR. Performed By: #### 2 4321-2 ####[facility] LAB[facility]ATORYIA [id number] [place] [address] [place] Glucose [Mass/Vol] 128 mg/dL High 74-99 [facility] Comment on above: Order Comment: Emerson ribeiro Type: BLOOD SPECIMENOrdering Facility: [facility] Address: [address] [place] [address] Result Comment: The [place] Diabetes Association (ADA) provides guidance for cutoff values for fasting glucose and random glucose. The ADA defines fasting as no caloric intake for at least 8 hours. Fasting plasma glucose results between 100 to 125 mg/dL indicate increased risk for diabetes (prediabetes). Fasting plasma glucose results greater than or equal to 126 mg/dL meet the criteria for diagnosis of diabetes. In the absence of unequivocal hyperglycemia, results should be confirmed by repeat testing. In a patient with classic symptoms of hyperglycemia or hyperglycemic crisis, random plasma glucose results greater than or equal to 200 mg/dL meet the criteria for diagnosis of diabetes. Reference: Standards of Medical Care in Diabetes 2016, [place] Diabetes Association. Diabetes Care. 2016.39(Suppl 1). Performed By: #### 2 4321-2 ####[facility]ATORYCLIA [id number] [address] Potassium [Moles/Vol] 4.7 mmol/L Normal 3.7-5.1 [facility] Comment on above: Order Comment: Speci men Type: BLOOD SPECIMENOrdering Facility: [facility] Address: [address] [place] [address] Performed By: #### 2 4321-2 ####[facility]ATORYCLIA [id number] [place] [id number] [facility] Sodium [Moles/Vol] 136 mmol/L Normal 136-144 [facility] Comment on above: Order Comment: Speci men Type: BLOOD SPECIMENOrdering Facility: [facility] Address: [address] [place] [address] Performed By: #### 2 4321-2 ####[facility]ATORYCLIA [id number] [place] [id number] [place] [facility] Urea nitrogen [Mass/Vol] 33 mg/dL High 9-24 [facility] Comment on above: Order Comment: Speci men Type: BLOOD SPECIMENOrdering Facility: [facility] Address: [address] [place] [address] Performed By: #### 2 4321-2 ####[facility]ATORYCLIA [id number] [place] [id number] [facility] CASE MANAGEMon 11-11-2023 CASE MANAGEM HNO ID: [id number] Author: RADHA FELIX LSW Service: ? Author Type: Pediatric Orthodontist Type: Care Mgt Progress Note Filed: 11/11/2023 15:06 Note Text: CARE MANAGEMENT PROGRESS NOTE SERVICE DATE: 11/11/2023 SERVICE TIME: 12:55 PM LOS: 2 days Sw attempted to met with patient, patient was off the floor. Sw attempted to met with patient he asked for sw to return later that he was on the phone with his . SIGNATURE: JOAO Richardson PATIENT NAME: Desiree Ames DATE: November 11, 2023 TIME: 12:55 PM PAGER/CONTACT #: [phone] Normal [facility] CBC panel Auto (Bld)on 11-11 Erythrocyte distribution width (RBC) [Ratio] 14.6 % Normal 11.5-15.0 [facility] Comment on above: Order Comment: Speci men Type: BLOOD SPECIMENOrdering Facility: [facility] Address: [address] [place] [address] Performed By: #### 5 8410-2 ####[facility] LABORATORYCLIA [id number] [address] OF [facility] Hematocrit (Bld) [Volume fraction] 26.7 % Low 39.0-51.0 [facility] Comment on above: Order Comment: Speci men Type: BLOOD SPECIMENOrdering Facility: [facility] Address: [address] [place] [address] Performed By: #### 5 8410-2 ####[facility]ATORYCLIA [id number] [address] [place] Hemoglobin (Bld) [Mass/Vol] 8.3 g/dL Low 13.0-17.0 [facility] Comment on above: Order Comment: Speci men Type: BLOOD SPECIMENOrdering Facility: [facility] Address: [address] [place] [address] Performed By: #### 5 8410-2 ####[facility]ORATORYCLIA [id number] [address] [place] MCH (RBC) [Entitic mass] 26.1 pg Normal 26.0-34.0 [facility] Comment on above: Order Comment: Speci men Type: BLOOD SPECIMENOrdering Facility: [facility] Address: [address] [place] [address] Performed By: #### 5 8410-2 ####[facility]ATORYCLIA [id number] [address] [place] MCHC (RBC) [Mass/Vol] 31.1 g/dL Normal 30.5-36.0 [facility] Comment on above: Order Comment: Speci men Type: BLOOD SPECIMENOrdering Facility: [facility] Address: [address] [place] [address] Performed By: #### 5 8410-2 ####[facility]ORATORYCLIA [id number] [address] [place] MCV (RBC) [Entitic vol] 84.[address] fL Normal 80.0-100.0 [facility] Comment on above: Order Comment: Speci men Type: BLOOD SPECIMENOrdering Facility: [facility] Address: [address] [place] [address] Performed By: #### 5 8410-2 ####[facility]ORATORYCLIA [id number] [address] [place] Nucleated RBC (Bld) [#/Vol] 10*3/uL Normal <0.01 [facility] Comment on above: Order Comment: Speci men Type: BLOOD SPECIMENOrdering Facility: [facility] Address: [address] [place] [address] Performed By: #### 5 8410-2 ####[facility]ATORYCLIA [id number] [address] [place] Platelet mean volume (Bld) [Entitic vol] 10.4 fL Normal 9.0-12.7 [facility] Comment on above: Order Comment: Speci men Type: BLOOD SPECIMENOrdering Facility: [facility] Address: [address] [place] [address] Performed By: #### 5 8410-2 ####[facility]ATORYCLIA [id number] [place] [address] [place] Platelets (Bld) [#/Vol] 247 10*3/uL Normal 150-400 [facility] Comment on above: Order Comment: Speci men Type: BLOOD SPECIMENOrdering Facility: [facility] Address: [address] [place] [address] Performed By: #### 5 8410-2 ####[facility]ATORYCLIA [id number] [place], [place] [id number] [place] [address] OF [facility] RBC (Bld) [#/Vol] 3.18 10*6/uL Low 4.20-6.00 [facility] Comment on above: Order Comment: Speci men Type: BLOOD SPECIMENOrdering Facility: [facility] Address: [address] [place] [address] Performed By: #### 5 8410-2 ####[facility]ATORYCLIA [id number] [address] WBC (Bld) [#/Vol] 7.70 10*3/uL Normal 3.70-11.00 [facility] Comment on above: Order Comment: Speci men Type: BLOOD SPECIMENOrdering Facility: [facility] Address: [address] [place] [address] Performed By: #### 5 8410-2 ####[facility]ATORYCLIA [id number] [address] CONSULT PROGon 11-11-2023 CONSULT PROG HNO ID: [id number] Author: BEV ARROYO APRN.MANAGER VEHICLE Service: Clinical Cardiology Author Type: Nurse Practitioner Type: Consult Progress Note Filed: 11/11/2023 14:52 Note Text: CARDIOLOGY CONSULT PROGRESS NOTE CARDIOLOGY ATTENDING: Colby Gramajo M.D. / Dr. Pierre as outpatient Date and Reason for initial consult: Preoperative clearance INTERVAL HISTORY: This is an 88-year-old male with past medical history significant for hypertension, hyperlipidemia, COPD, CKD, chronic diastolic heart failure, CAD s/p cardiac stents and PAD. Plan is for patient to have femoral endarterectomy with Dr. Zapata on 11/12/2023. Cardiology was consulted for preoperative risk stratification. Patient was evaluated by Dr. Gramajo and recommended to undergo nuclear stress test. Nuclear stress test was completed today which showed mild ischemia in the territory of the left circumflex, small fixed perfusion defect in the LAD and moderate fixed perfusion defect in left circumflex territory, EF 53%. Stress test reviewed with Dr. Gramajo who felt ischemia was very mild and was okay to proceed with surgery with low to moderate risk. Recommended to take carvedilol morning of surgery and Lipitor night before surgery. Pt denies chest pain, leg swelling, shortness of breath, heart palpitations, cough, near syncope or syncope, dizziness, nausea, vomiting diaphoresis, or falls PERTINENT ROS: All other systems reviewed and found to be negative except those mentioned in the HPI MEDICATIONS: Current Facility-Administered Medications Medication Dose Route Frequency nitroglycerin sublingual 0.4 mg tab(s) (NITROQUICK) 0.4 mg SUBLINGUAL q 5 MIN PRN atorvastatin 40 mg tab(s) (LIPITOR) 40 mg ORAL q 48 H ipratropium bromide 2 [place] nasal spray (ATROVENT) 2 [place] NASAL QID isosorbide mononitrate ER 30 mg [...] acting) 15 Units SUBCUTANEOUS DAILY (8 AM) insulin lispro injection (rapid acting) (ADMElog) SUBCUTANEOUS w MEALS sodium chloride 0.9 % (flush) 2-10 mL (BD POSIFLUSH) 2-10 mL INTRAVENOUS DIRECTED PRN And perflutren lipid microspheres 1.1 mg/mL 1.3 mL injection (DEFINITY) 1.3 mL INTRAVENOUS DIRECTED PRN PHYSICAL EXAM: Vital Signs 11/11/23 0337 11/11/23 0504 11/11/23 0813 11/11/23 1350 BP: 145/55 152/60 139/52 Pulse: (!) 53 (!) 56 65 Resp: 18 18 Temp: 36.7 ?C (98.1 ?F) 37 ?C (98.6 ?F) TempSrc: Temporal Oral SpO2: 96% 96% Weight: 89.6 kg (197 lb 8.5 oz) Height: Temp (24hrs), Av.8 ?C (98.2 ?F), Min:36.4 ?C (97.5 ?F), Max:37 ?C (98.6 ?F) Intake/Output: No intake or output data in the 24 hours ending 11/11/23 1425 Oxygen therapy: RA Admit Weight: 190 lbs Gen: AANDO x 3 Neck: no jugular venous distention Cardiac: RRR S1/S2 without murmur, gallop, or rubs. No ectopy. Resp: clear to auscultation bilaterally Abd: Soft, non-tender. Bowel sounds normal. No masses, organomegaly, hernias. Ext: no edema, moves all extremities with no apparent weakness Tele: normal sinus rhythm Labs: CK Value: Test sent to [facility]. 02/02/2014 Recent Labs 11/11/2345811/10/23 0231 WBC 7.70 7.13 HB 8.3* 8.2* HCT 26.7* 26.1* PLT 247 267 Recent Labs 11/11/23 0459 11/10/23 0231 NA 136 137 K 4.7 4.4 CHLOR 100 103 CO2 24 22 BUN 33* 42* CREAT 1.78* 1.77* GLUC 128* 126* Cholesterol 125 12/16/2020 HDL Cholesterol 31 12/16/2020 LDL Chol, [place] 71 12/16/2020 DATA: Echocardiogram 11/11/2023 - Exam indication: Re-evaluation of ventricular function following ACS - The left ventricle is normal in size. There is moderate concentric left ventricular hypertrophy. Left ventricular systolic function is normal. EF = 56 ? 5% (2D 4-ch.) Grade II left ventricular diastolic dysfunction. - The right (more content not included)... Normal [facility] ECHOon 11-11-2023 Echocardiography Echocardiography Report: Transthoracic Echo [facility] Date of service: 11/11/2023 9:05:22 AM HOSPITAL Ordering physician: RENE ZAPATA Indication: Re-evaluation of ventricular function following ACS Technologist: José Luis Deshpande [facility] Interpreting physician: Freeman Melgoza MD PATIENT: Name: MR. DESIREE AMES : 1935 Age: 88 years Gender: M History of diabetes mellitus, chronic kidney disease and coronary artery disease. Previous cardiovascular interventions: PCI Primary rhythm: sinus. Secondary rhythm: PVC. Height: 172.70 cm BSA: 2.07 m Weight: 88.90 kg BMI: 29.8 kg/m Heart rate 57 bpm Blood pressure 150/49 mmHg Color Doppler was utilized to interrogate the cardiac valves assessed and spectral Doppler was utilized to determine the flow velocities and pressure gradients reported in this exam. MEASUREMENTS: Value Indexed Normal Max aortic dimension 3.8 cm Ao < 3.8 Left atrial volume 127 ml (4ch A-L) 62 ml/m Radha <= 34 LV ID (diastole) 4.8 cm (2D) 2.34 cm/m LV ID (systole) 3.8 cm (2D) 1.82 cm/m IVS, leaflet tips 1.5 cm (2D) Posterior wall thickness 1.3 cm (2D) Left ventricular mass 285 g (2D) 138 g/m LV stroke volume 72 ml (2D 4-ch.) LV end diastolic volume 129 ml (2D 4-ch.) 62.5 ml/m 34<=EDVi<75 LV end systolic volume 57 ml (2D 4-ch.) 27.8 ml/m Ejection Fraction 56 % (2D 4-ch.) EF > 52 FINDINGS: LEFT VENTRICLE The left ventricle is normal in size. There is moderate concentric left ventricular hypertrophy. Left ventricular systolic function is normal regionally. Grade II left ventricular diastolic dysfunction. Mitral annular lateral E/e': 16.6. Mitral annular septal E/e': 19.4. Wall Motion: The inferior wall is mildly hypokinetic. All remaining scored segments are normal. RIGHT VENTRICLE The right ventricle is normal in size. Right ventricular systolic function is normal. RV systolic tissue Doppler velocity is 14.0 cm/s. Tricuspid annular displacement is 2.1 cm. Estimated right ventricular systolic pressure is likely underestimated due to a weak or incomplete tricuspid regurgitation signal and is, at least, 37 mmHg consistent with mild pulmonary hypertension. Estimated right atrial pressure is 8 mmHg based on IVC assessment. LEFT ATRIUM The left atrial cavity is severely dilated. Pulmonary Veins: The pulmonary venous pattern showed blunted systolic flow. RIGHT ATRIUM The right atrial cavity is dilated. Inferior Vena Cava: The inferior vena cava appears dilated measuring 2.1 cm. The vessel decreases greater than 50 percent with inspiration. MITRAL VALVE There is mild mitral annular calcification observed posterior. There is mild-moderate (2+) mitral valve regurgitation due to mild prolapse. There is mild thickening. There is mild calcification. Regurgitant orifice area (PISA) is 0.11 cm . The pressure half time is 51 msec. The peak mitral E/A ratio is 1.00. The average mitral E/e' ratio is 18.0. The mitral flow deceleration time is 174 msec. TRICUSPID VALVE The tricuspid valve leaflets are structurally normal. There is trace tricuspid valve regurgitation. AORTIC VALVE There is no aortic valve regurgitation. Tricuspid aortic valve. There is mild thickening. There is mild calcification. PULMONIC VALVE The pulmonic valve was not seen or not interrogated. There is trace pulmonic valve regurgitation. AORTA The visualized aorta is borderline dilated. Measurements - Sinus: 3.8 cm. Sinotubular junction 3.4 cm. Mid ascending aorta 3.2 cm. PULMONARY ARTERIES The pulmonary arteries are unseen or not interrogated. INTERATRIAL SEPTUM There is no evidence of intracardiac shunting as detected by Doppler. INTERVENTRICULAR SEPTUM The interventricular septum is normal. PERICARDIUM There is no pericardial effusion. There is an epicardial fat pad. CONCLUSIONS: - Exam indication: Re-evaluation of ventricular function following ACS - The left ventricle is normal in size. There is moderate concentric left ventricular hypertrophy. Left ventricular systolic function is normal. EF = 56 5% (2D 4-ch.) Grade II left ventricular diastolic dysfunction. - The right ventricle is normal in size. Right ventricular systolic function is normal. Estimated right ventricular systolic pressure is likely underestimated due to a weak or incomplete tricuspid regurgitation signal and is, at least, 37 mmHg consistent with mild pulmonary hypertension. Estimated right atrial pressure is 8 mmHg based on IVC assessment. - The left atrial cavity is severely dilated. - The right atrial cavity is dilated. - The visualized aorta is borderline dilated with a maximal dimension of 3.8 cm. - There is mild-moderate (1-2+) mitral valve regurgitation due to mild prolapse. Regurgitant orifice area (PISA) is 0.11 cm . There is mild mitral annular calcification observed posterior. - Exam was co (more content not included)... Normal [facility] NM CARDIAC PERF STRESS/PHARM on 11-11-2023 CO CARDIAC PERF STRESS/PHARM * * *Final Report* * * DATE OF EXAM: Nov 11 2023 12:43PM [facility] 0006 - CO CARDIAC PERF STRESS/PHARM / PROCEDURE REASON: Pre-op noncardiac surgery, moderate risk * * * * Physician Interpretation * * * * Stress Freight Elevator Erector Report: [facility] Date of service: 11/11/2023 8:00:00 AM Supervising physician: Colby Gramajo MD PATIENT: Name: MR. DESIREE AMES Age: 88 years Gender: M The supervising physician was in the department and immediately available. * * * Final * * * ---- PATIENT: Name: MR. DESIREE AMES Age: 88 years Gender: M CONCLUSIONS: 1. SPECT Perfusion Study: Abnormal. 2. There is mild (<10%) ischemia in the territory of the LCX. 3. There is a small (<10%) fixed perfusion defect in the LAD territory. 4. There is a moderate (10-20%) fixed perfusion defect in the LCX territory. 5. Left ventricle is mildly dilated. The left ventricle systolic function is normal. 6. Right ventricle is normal in size. The right ventricle systolic function is normal. 7. This is an intermediate risk scan. 8. Normal EKG portion of the stress test. Gated Stress FBP LVEF % 53 Prior Study Comparison No prior nuclear cardiology exam available for comparison. Nuclear Med Report:1-Day Gated SPECT Myocardial Perfusion with Regadenoson Stress: Myocardial perfusion imaging was performed at rest 30 minutes following the IV injection of the radiotracer. The patient received 0.4 mg of regadenoson, via rapid IV push, immediately followed by radiotracer IV. Gated post stress tomographic imaging was performed 30 to 60 minutes later. See administered radiotracer and doses below. [facility] Date of service: 11/11/2023 8:00:00 AM Ordering Physician: RENE ZAPATA. Requesting Physician: Indication: Preop eval for noncard surg with high risk, poor exercise tolerance Interpreting physician: Colby Gramajo MD Previous Cardiovascular Interventions: Angioplasty w/stent placement 1998 and February 2008 Left heart cath 2011 and 2013 AAA repair 1998 Fem/pop bypass graft 08/2018 Height: 173.00 cm BSA: 2.08 m? Weight: 90.00 kg BMI: 30.1 kg/m? Imaging Protocol Limitation Reason Diaphragmatic attenuation and G.I. uptake. Exam Type: Rest Stress Radiopharm: Tc-99m Tetrofosmin Tc-99m Tetrofosmin Dosage(mCi): 13.6 35.8 Stress Agent: Regadenoson 0.4mg Supply provided from [facility] Resting Blood Press: 143/51 mmHg Image Quality The overall study imaging quality was deemed to be fair. The following technical issues were noted: Diaphragmatic attenuation and G.I. uptake. FINDINGS: Left Ventricle Wall Motion: Stress IR:3D - All segments are normal. Rest IR:3D - Gated Stress FBP - Reversibility - Stress IR:3D Stress IR:3D Gated Stress FBP LVEF: 53 % ED Volume: 159 ml ES Volume: 75 ml TID: 0.88 Perfusion Findings Stress IR:3D - Summed Score=13 There is a moderate perfusion defect in the entire inferior wall, posterior wall, and apex. There is a mild perfusion defect in the apical septal segment. All remaining scored segments show normal perfusion. Rest IR:3D - Summed Score=15 There is a moderate perfusion defect in the entire inferior wall, basal inferolateral segment, apical septal segment, and apex. There is a mild perfusion defect in the mid and distal lateral wall and basal anterolateral segment. All remaining scored segments show normal perfusion. Stress IR:3D Rest IR:3D Summed Score=13 Summed Score=15 LEFT VENTRICLE The left ventricle is mildly dilated. Left ventricular systolic function is normal. Right Ventricle The right ventricle is normal in size. Right ventricle systolic function is normal. * * * Final * * * ---- Stress ECG Report: [facility] Date of service: 11/11/2023 8:00:00 AM Ordering physician: RENE ZAPATA support specialist: Leatha Odom [employer] Insurance Coder: Gloria Jerry Interpreting physician: Colby Gramajo MD Patient name: MR. DESIREE AMES Age: 88 years Gender: M Height: 173.00 cm BSA: 2.08 m? Weight: 90.00 kg BMI: 30.1 kg/m? Indication: Encounter for pre-procedural cardiovascular examination for non-cardiac surgery, Encounter for screening for cardiovascular disorders and Dyspnea on exertion Stress ECG Conclusion: Conclusion: Normal Stress ECG Summary: The patient's resting heart rate was 55 bpm and blood pressure was 143/51 mmHg. The test was terminated due to end of protocol. Other symptoms during the test included SOB and headache. The maximum heart rate was 68 bpm, which is 51% of (more content not included)... Normal [facility] Basic metabolic 2000 panelon 11-10-2023 Anion gap [Moles/Vol] 12 mmol/L Normal 9-18 [facility] Comment on above: Order Comment: Speci men Type: BLOOD SPECIMENOrdering Facility: [facility] Address: [address] [place] [address] Performed By: #### 2 4321-2 ####[facility] LABORATORYCLIA [id number] [place] [address] [place] Calcium [Mass/Vol] 9.1 mg/dL Normal 8.5-10.2 [facility] Comment on above: Order Comment: Speci men Type: BLOOD SPECIMENOrdering Facility: [facility] Address: [address] [place] [address] Performed By: #### 2 4321-2 ####[facility] LABORATORYCLIA [id number] [place] [address] [place] Chloride [Moles/Vol] 103 mmol/L Normal 97-105 [facility] Comment on above: Order Comment: Speci men Type: BLOOD SPECIMENOrdering Facility: [facility] Address: [address] [place] [address] Performed By: #### 2 4321-2 ####[facility] LABORATORYCLIA [id number] [place] [address] [place] CO2 [Moles/Vol] 22 mmol/L Normal 22-30 [facility] Comment on above: Order Comment: Speci men Type: BLOOD SPECIMENOrdering Facility: [facility] Address: [address] [place] [address] Performed By: #### 2 4321-2 ####[facility] LABORATORYCLIA [id number] [place] [address] [place] Creatinine [Mass/Vol] 1.77 mg/dL High 0.73-1.22 [facility] Comment on above: Order Comment: Speci men Type: BLOOD SPECIMENOrdering Facility: [facility] Address: [address] [place] [address] Performed By: #### 2 4321-2 ####[facility] LABORATORYCLIA [id number] [address] [place] Creatinine and Glomerular filtration rate.predicted panel (S/P/Bld) 37 mL/min/1.73m??? Low >=60 [facility] Comment on above: Order Comment: Emerson ribeiro Type: BLOOD SPECIMENOrdering Facility: [facility] Address: [address] [place] [address] Result Comment: Dottie mated Glomerular Filtration Rate (eGFR) is calculated using the 2020 CKD-EPI creatinine equation. This equation utilizes serum creatinine, sex, and age as parameters. The creatinine assay has traceable calibration to isotope dilution-mass spectrometry. Refer to KDIGO guidelines for clinical interpretation. In patients with unstable renal function, e.g. those with acute kidney injury, the eGFR may not accurately reflect actual GFR. Performed By: #### 2 4321-2 ####[facility] LABORATORYCLIA [id number] [place] [address] [place] Glucose [Mass/Vol] 126 mg/dL High 74-99 [facility] Comment on above: Order Comment: Emerson ribeiro Type: BLOOD SPECIMENOrdering Facility: [facility] Address: [address] [place] [address] Result Comment: The [place] Diabetes Association (ADA) provides guidance for cutoff values for fasting glucose and random glucose. The ADA defines fasting as no caloric intake for at least 8 hours. Fasting plasma glucose results between 100 to 125 mg/dL indicate increased risk for diabetes (prediabetes). Fasting plasma glucose results greater than or equal to 126 mg/dL meet the criteria for diagnosis of diabetes. In the absence of unequivocal hyperglycemia, results should be confirmed by repeat testing. In a patient with classic symptoms of hyperglycemia or hyperglycemic crisis, random plasma glucose results greater than or equal to 200 mg/dL meet the criteria for diagnosis of diabetes. Reference: Standards of Medical Care in Diabetes 2016, [place] Diabetes Association. Diabetes Care. 2016.39(Suppl 1). Performed By: #### 2 4321-2 ####[facility] LABORATORYCLIA [id number] [place] [address] [place] Potassium [Moles/Vol] 4.4 mmol/L Normal 3.7-5.1 [facility] Comment on above: Order Comment: Emerson ribeiro Type: BLOOD SPECIMENOrdering Facility: [facility] Address: [address] [place] [address] Performed By: #### 2 4321-2 ####[facility] LABORATORYCLIA [id number] [address] STATES [facility] Sodium [Moles/Vol] 137 mmol/L Normal 136-144 [facility] Comment on above: Order Comment: Speci men Type: BLOOD SPECIMENOrdering Facility: [facility] Address: [address] [place] [address] Performed By: #### 2 4321-2 ####[facility] LABORATORYCLIA [id number] [address] [place] [facility] Urea nitrogen [Mass/Vol] 42 mg/dL High 9-24 [facility] Comment on above: Order Comment: Speci men Type: BLOOD SPECIMENOrdering Facility: [facility] Address: [address] [place] [address] Performed By: #### 2 4321-2 ####[facility] LABORATORYCLIA [id number] [address] CBC panel Auto (Bld)on 11-10 Erythrocyte distribution width (RBC) [Ratio] 14.5 % Normal 11.5-15.0 [facility] Comment on above: Order Comment: Speci men Type: BLOOD SPECIMENOrdering Facility: [facility] Address: [address] [place] [address] Performed By: #### 5 8410-2 ####[facility] LABORATORYCLIA [id number] [address] Hematocrit (Bld) [Volume fraction] 26.1 % Low 39.0-51.0 [facility] Comment on above: Order Comment: Speci men Type: BLOOD SPECIMENOrdering Facility: [facility] Address: [address] [place] [address] Performed By: #### 5 8410-2 ####[facility] LABORATORYCLIA [id number] [address] Hemoglobin (Bld) [Mass/Vol] 8.2 g/dL Low 13.0-17.0 [facility] Comment on above: Order Comment: Speci men Type: BLOOD SPECIMENOrdering Facility: [facility] Address: [address] [place] [address] Performed By: #### 5 8410-2 ####[facility] LABORATORYCLIA [id number] [address] MCH (RBC) [Entitic mass] 26.0 pg Normal 26.0-34.0 [facility] Comment on above: Order Comment: Speci men Type: BLOOD SPECIMENOrdering Facility: [facility] Address: [address] [place] [address] Performed By: #### 5 8410-2 ####[facility] LABORATORYCLIA [id number] [address] MCHC (RBC) [Mass/Vol] 31.4 g/dL Normal 30.5-36.0 [facility] Comment on above: Order Comment: Speci men Type: BLOOD SPECIMENOrdering Facility: [facility] Address: [address] [place] [address] Performed By: #### 5 8410-2 ####[facility] LABORATORYCLIA [id number] [address] MCV (RBC) [Entitic vol] 82.9 fL Normal 80.0-100.0 [facility] Comment on above: Order Comment: Speci men Type: BLOOD SPECIMENOrdering Facility: [facility] Address: [address] [place] [address] Performed By: #### 5 8410-2 ####[facility] LABORATORYCLIA [id number] [address] Nucleated RBC (Bld) [#/Vol] 10*3/uL Normal <0.01 [facility] Comment on above: Order Comment: Speci men Type: BLOOD SPECIMENOrdering Facility: [facility] Address: [address] [place] [address] Performed By: #### 5 8410-2 ####[facility] LABORATORYCLIA [id number] [address] Platelet mean volume (Bld) [Entitic vol] 10.2 fL Normal 9.0-12.7 [facility] Comment on above: Order Comment: Speci men Type: BLOOD SPECIMENOrdering Facility: [facility] Address: [address] [place] [address] Performed By: #### 5 8410-2 ####[facility] LABORATORYCLIA [id number] [address] [place] Platelets (Bld) [#/Vol] 267 10*3/uL Normal 150-400 [facility] Comment on above: Order Comment: Speci men Type: BLOOD SPECIMENOrdering Facility: [facility] Address: [address] [place] [address] Performed By: #### 5 8410-2 ####[facility] LABORATORYCLIA [id number] [address] STATES OF [facility] RBC (Bld) [#/Vol] 3.15 10*6/uL Low 4.20-6.00 [facility] Comment on above: Order Comment: Speci men Type: BLOOD SPECIMENOrdering Facility: [facility] Address: [address] [place] [address] Performed By: #### 5 8410-2 ####[facility] LABORATORYCLIA [id number] [address] [place] WBC (Bld) [#/Vol] 7.13 10*3/uL Normal 3.70-11.00 [facility] Comment on above: Order Comment: Speci men Type: BLOOD SPECIMENOrdering Facility: [facility] Address: [address] [place] [address] Performed By: #### 5 8410-2 ####[facility] LABORATORYCLIA [id number] [address] CONSULTon 11-10-2023 CONSULT HNO ID: [id number] Author: COLBY GRAMAJO MD Service: Clinical Cardiology Author Type: Physician Type: Consults Filed: 11/10/2023 11:22 Note Text: CARDIOLOGY CONSULT NOTE SERVICE DATE: 11/10/2023 SERVICE TIME: 11:05 AM CONSULTING PHYSICIAN: Colby Gramajo PCP: Riaz Garrison MD ATTENDING: Rene Zapata MD REASON FOR CONSULT: Pre-Op Clearance CHIEF COMPLAINT: 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 Rene Zapata. Mr. Ames is a 88 year old male who is seen today for preoperative evaluation. He has a history of hypertension, hyperlipidemia, COPD, chronic kidney disease, heart failure with preserved ejection fraction, coronary artery disease (sees Dr. Jackson at [facility], and has 9 coronary stents from what he tells me. The last one was placed around 2007), peripheral vascular disease. He has apparently had surgery on his right lower extremity for symptoms of peripheral vascular disease about 5 years back. He was evaluated by Dr. Zapata, he was told that he would need right femoral endarterectomy on 11/12/2023. I was consulted for preoperative evaluation. Clinically, he has not had any history of myocardial infarctions within the last month or so. He also denies any active chest pain, exertional dyspnea, orthopnea, lightheadedness, dizziness or palpitations. The telemetry recordings have not indicated any runs of sustained ventricular tachycardia. He does not have a prior history of atrial fibrillation . From discussion with the patient, he appears to have an exercise capacity of <4.5 METS. In terms of cardiac workup, he underwent an echocardiogram in 2020, which revealed an LV ejection fraction of 65%, mild mitral, tricuspid regurgitation. . 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 Hilliard. Coronary atherosclerosis of unspecified type of vessel, [place] or graft 06/13/2005 Diverticulitis of colon (without [...] MAJOR SURGERY 1998 With inguinal hernia repair [facility] INCL FLUOR GDNCE DX W/CELL WASHG [...] ADDN VESSEL,PERCUT 02/17/2008 Transcath stent addn vessel p (more content not included)... Normal [facility] CONSULT PROGon 11-10-2023 CONSULT PROG HNO ID: [id number] Author: SHERRILL LEMUS MD Service: General Surgery Author Type: Resident Type: Consult Progress Note Filed: 11/10/2023 14:25 Note Text: Attestation signed by Sherrill Lemus MD at 11/10/2023 2:25 PM I saw and evaluated the patient. Discussed with the resident and agree with resident's findings and plan as documented in the resident's note. Sherrill Lemus MD Vascular Surgery Progress Note SERVICE DATE: November 10, 2023 Vascular and Thoracic Service Pager: For questions or concerns Mon-Sat 6a-5p please page [phone]. After 5pm and on Weekends and Holidays, please page [phone] if in ICU or [phone] if on RNF. Subjective SUBJECTIVE: Pt seen in the Am. VSS. Plan for left femoral endarterectomy on 11/[address] Cardoza. Pre-operative workup with cardiology pending. Denies N/V/CP/SOB Diet: DIET HEART HEALTHY Objective OBJECTIVE: Vitals: Temp (24hrs), Av.6 ?C (97.9 ?F), Min:36.4 ?C (97.5 ?F), Max:36.8 ?C (98.2 ?F) BP 168/72 Pulse 71 Temp 36.8 ?C (98.2 ?F) (Oral) Resp 20 Ht 172.7 cm (5' 8) Wt 88.9 kg (195 lb 15.8 oz) SpO2 95% BMI 29.80 kg/m? O2 Therapy: Room Air IANDO: Date 11/09/23699 - 11/10/2365811/10/23699 - 11/11/23 0659 Shift 5935-8724 5400-1131 7494-9811 24 Hour Total 2146-1303 1642-3485 6674-0035 24 Hour Total INTAKE Shift Total OUTPUT Urine Urine Not Saved. 1 x 3 x 2 x 6 x Shift Total Weight (kg) 86.2 86.2 88.9 88.9 88.9 88.9 88.9 88.9 MEDICATIONS Current Facility-Administered Medications Medication Dose Route Frequency nitroglycerin sublingual 0.4 mg tab(s) (NITROQUICK) 0.4 mg SUBLINGUAL q 5 MIN PRN atorvastatin 40 mg tab(s) (LIPITOR) 40 mg ORAL q 48 H ipratropium bromide 2 [place] nasal spray (ATROVENT) 2 [place] NASAL QID isosorbide mononitrate ER 30 mg [...] acting) 15 Units SUBCUTANEOUS DAILY (8 AM) enoxaparin 30 mg injection (LOVENOX) 30 mg SUBCUTANEOUS q 24 HR Labs: Recent Labs 11/10/23 0231 NA 137 K 4.4 CHLOR 103 CO2 22 BUN 42* CREAT 1.77* GLUC 126* ANION 12 CA 9.1 WBC 7.13 HB 8.2* HCT 26.1* PLT 267 Physical Exam: GENERAL: No distress, Alert NEURO: AANDOx3, CN II-XII grossly intact HEENT: Normocephalic, atraumatic LUNGS: Equal chest rise, Unlabored breathing O2 Therapy: Room Air CARDIAC: Regular rate as above, warm extremities ABDOMEN: Soft, non-tender, non-distended EXTREMITIES: OSCAR, No deformities, No edema SKIN: Skin color, texture, turgor normal, No rashes or lesions Assessment AND Plan ASSESSMENT AND PLAN: Assessment Active Hospital Problems Diagnosis Date Noted 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 Plan for Left femoral endarterteomy with Dr. Zapata on 11/12. Hospital Course/Operations/Proce dures: * No surgery found * Plan: - consult cards for pre-op clearance - Regular diet for now - Hold Asa and Plavix - ISS - prophylactic LVX, hold before surgery - OR 11/12 for femoral endarterectomy - Discussed with attending Dr. Lemus covering for Dr. Zapata Discussed with attending: Dr. Lemus Follow up needs: TBD Portions of the physical exam and assessment/plan of the previous day's note has been copied over. However changes were made to reflect the care plan for today, 11/10/2023 SIGNATURE: Roney Bradley DO PATIENT NAME: Desiree Ames DATE: November 10, 2023 TIME: 8:10 AM Pager: [phone] Vascular and (more content not included)... Normal [facility] ECG COMPLETEon 11-10-2023 ECG COMPLETE Ventricular Rate : 6 0 BPM Atrial Rate : 60 BPM P-R Interval : 272 ms QRS Duration : 90 ms Q-T Interval : 434 ms QTC Calculation(Bazett) : 434 ms Calculated P Rothsay : 81 degrees Calculated R Rothsay : 56 degrees Calculated T Rothsay : 66 degrees SINUS RHYTHM WITH 1ST DEGREE A-V BLOCK WITH PREMATURE ATRIAL COMPLEXES NONSPECIFIC ST ABNORMALITY ABNORMAL ECG NO PREVIOUS ECGS AVAILABLE Confirmed by MD PAINTER ANUBHAV ([id number]) on 11/11/2023 10:21:04 AM NAME : DESIREE AMES PID : [id number] : 1935 Gender : Male Race : ORD : [id number] Procedure Date : Nov 10 2023 06:09:48 Edit Date : Nov 11 2023 10:21:13 Diagnosis: SINUS RHYTHM WITH 1ST DEGREE A-V BLOCK WITH PREMATURE ATRIAL COMPLEXES NONSPECIFIC ST ABNORMALITY ABNORMAL ECG NO PREVIOUS ECGS AVAILABLE Confirmed by MD MADINA, JESS ([id number]) on 11/11/2023 10:21:04 AM Test Reason : Arrhythmia Location : 200 : [place] [address] Overread By : MD PAINTER ANUBHAV Edited By : MD PAINTER ANUBHAV Referred By : RENE ZAPATA Acquired by : THAIS HYDE Normal [facility] EKGon 11-10-2023 Electrocardiogram Ventricular Rate : 6 0 BPM Atrial Rate : 60 BPM P-R Interval : 254 ms QRS Duration : 92 ms Q-T Interval : 436 ms QTC Calculation(Bazett) : 436 ms Calculated P Rothsay : 75 degrees Calculated R Rothsay : 59 degrees Calculated T Rothsay : 63 degrees SINUS RHYTHM WITH 1ST DEGREE A-V BLOCK WITH OCCASIONAL PREMATURE VENTRICULAR COMPLEXES AND PREMATURE ATRIAL COMPLEXES NONSPECIFIC ST ABNORMALITY ABNORMAL ECG WHEN COMPARED WITH ECG OF 10-NOV-2023 06:09, PREMATURE VENTRICULAR COMPLEXES ARE NOW PRESENT Confirmed by MD PAINTER ANUBHAV ([id number]) on 11/11/2023 10:21:39 AM NAME : DESIREE AMES PID : [id number] : 1935 Gender : Male Race : ORD : Procedure Date : Nov 10 2023 06:10:17 Edit Date : Nov 11 2023 10:21:41 Diagnosis: SINUS RHYTHM WITH 1ST DEGREE A-V BLOCK WITH OCCASIONAL PREMATURE VENTRICULAR COMPLEXES AND PREMATURE ATRIAL COMPLEXES NONSPECIFIC ST ABNORMALITY ABNORMAL ECG WHEN COMPARED WITH ECG OF 10-NOV-2023 06:09, PREMATURE VENTRICULAR COMPLEXES ARE NOW PRESENT Confirmed by MD PAINTER ANUBHAV ([id number]) on 11/11/2023 10:21:39 AM Test Reason : Location : [facility] : [place] [address] Overread By : MD PAINTER ANUBHAV Edited By : MD PAINTER ANUBHAV Referred By : RENE ZAPATA Acquired by : THAIS HYDE [facility] NURSING PROGon 11-10-2023 NURSING PROG HNO ID: [id number] Author: ERWIN FOREMAN, RN Service: Nursing Author Type: Registered Nurse Type: Nursing Progress Note Filed: 11/10/2023 06:34 Note Text: Event(s) / Intervention Note: PATIENT NAME: Desiree Ames Patient Location: [place] [address] [address] 36 Room: [place] [address] The patient 4236 the following problems: Pt c/o of weakness and feeling off. Nurse immediately assessed VS and BG. BP was slightly elevated 179/61, and BG 140. Vascular surgery paged regarding this event. Verbal order obtained for STAT EKG. The time of the event occurred at: 0555. The following intervention(s) were initiated: STAT EKG and BG checked. Vascular surgery notified of EKG completion and updated status of pt condition via secured chat. After the initiated interventions, the following observation(s) were made: Pt states weakness has began to dissipate and he is currently resting in bed with no other complaints at this time. Normal [facility] HISTORY PHYSICALon HISTORY PHYSICAL HNO ID: [id number] Author: SHERRILL LEMUS MD Service: General Surgery Author Type: Resident Type: H&P Filed: 11/10/2023 14:19 Note Text: Attestation signed by Sherrill Lemus MD at 11/10/2023 2:19 PM I saw and evaluated the patient. Discussed with the resident and agree with resident's findings and plan as documented in the resident's note. Sherrill Lemus MD CONSULT: Vascular Surgery Service SERVICE DATE: 11/09/2023 SERVICE TIME: 5:13 PM Subjective 88 year old male with pmhx of PAD, CAD, HTN, HLD, BPH, COPD, CKD, HFpEF, MVD. Patient has a history of peripheral artery disease. Patient had surgery on his right lower extremity for similar symptoms around 5 years ago. Plan is for patient to have femoral endarterectomy with Dr. Zapata on 11/12. Patient will need preoperative restratification with cardiology before surgery. No signals present at PT, or DP on exam. 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 Hilliard. Coronary atherosclerosis of unspecified type of vessel, [place] or graft 06/13/2005 Diverticulitis of colon (without [...] MAJOR SURGERY 1998 With inguinal hernia repair [facility] INCL FLUOR GDNCE DX W/CELL WASHG [...] RCA. TRANSURETHRAL ELEC-SURG PROSTATECTOM 03/07/2022 FAMILY HISTORY Problem Relation Age of Onset Alzheimer's Disease Mother age 92 Arthritis Mother hip replacement Diabetes Father alive at 93 Coronary Artery Disease Father Stroke Father Hypertension Father Prostate Cancer Father Cataract Father Hypertension Brother Heart Brother valve replacement Lipids Brother Prostate Cancer Son 57 seed implants Aneurysm No Family History Social History Tobacco Use Smoking st (more content not included)... Normal [facility] Basic metabolic 2000 panelon 11-05-2023 Anion gap [Moles/Vol] 13 mmol/L Normal 9-18 [facility] Comment on above: Order Comment: Speci men Type: BLOOD SPECIMENOrdering Facility: [facility] Address: [address] [place] [address] Performed By: #### 2 4321-2 ####[facility] LABORATORYCLIA [id number] [place] [address] [place] Calcium [Mass/Vol] 9.4 mg/dL Normal 8.5-10.2 [facility] Comment on above: Order Comment: Speci men Type: BLOOD SPECIMENOrdering Facility: [facility] Address: [address] [place] [address] Performed By: #### 2 4321-2 ####[facility] LABORATORYCLIA [id number] [address] Chloride [Moles/Vol] 101 mmol/L Normal 97-105 [facility] Comment on above: Order Comment: Speci men Type: BLOOD SPECIMENOrdering Facility: [facility] Address: [address] [place] [address] Performed By: #### 2 4321-2 ####[facility] LABORATORYCLIA [id number] [address] OF [place] CO2 [Moles/Vol] 22 mmol/L Normal 22-30 [facility] Comment on above: Order Comment: Speci men Type: BLOOD SPECIMENOrdering Facility: [facility] Address: [address] [place] [address] Performed By: #### 2 4321-2 ####[facility] [id number] [address] OF [facility] Creatinine [Mass/Vol] 1.92 mg/dL High 0.73-1.22 [facility] Comment on above: Order Comment: Speci men Type: BLOOD SPECIMENOrdering Facility: [facility] Address: [address] [place] [address] Performed By: #### 2 4321-2 ####[facility] LABORATORYCLIA [id number] [address] Creatinine and Glomerular filtration rate.predicted panel (S/P/Bld) 34 mL/min/1.73m??? Low >=60 [facility] Comment on above: Order Comment: Speci men Type: BLOOD SPECIMENOrdering Facility: [facility] Address: [address] [place] [address] Result Comment: Dottie mated Glomerular Filtration Rate (eGFR) is calculated using the 2020 CKD-EPI creatinine equation. This equation utilizes serum creatinine, sex, and age as parameters. The creatinine assay has traceable calibration to isotope dilution-mass spectrometry. Refer to KDIGO guidelines for clinical interpretation. In patients with unstable renal function, e.g. those with acute kidney injury, the eGFR may not accurately reflect actual GFR. Performed By: #### 2 4321-2 ####[facility] LABORATORYCLIA [id number] [place] [address] [place] Glucose [Mass/Vol] 192 mg/dL High 74-99 [facility] Comment on above: Order Comment: Specmao men Type: BLOOD SPECIMENOrdering Facility: [facility] Address: [address] [place] [address] Result Comment: The [place] Diabetes Association (ADA) provides guidance for cutoff values for fasting glucose and random glucose. The ADA defines fasting as no caloric intake for at least 8 hours. Fasting plasma glucose results between 100 to 125 mg/dL indicate increased risk for diabetes (prediabetes). Fasting plasma glucose results greater than or equal to 126 mg/dL meet the criteria for diagnosis of diabetes. In the absence of unequivocal hyperglycemia, results should be confirmed by repeat testing. In a patient with classic symptoms of hyperglycemia or hyperglycemic crisis, random plasma glucose results greater than or equal to 200 mg/dL meet the criteria for diagnosis of diabetes. Reference: Standards of Medical Care in Diabetes 2016, [place] Diabetes Association. Diabetes Care. 2016.39(Suppl 1). Performed By: #### 2 4321-2 ####[facility] LABORATORYCLIA [id number] [place] [address] [place] Potassium [Moles/Vol] 4.5 mmol/L Normal 3.7-5.1 [facility] Comment on above: Order Comment: Emerson ribeiro Type: BLOOD SPECIMENOrdering Facility: [facility] Address: [address] [place] [address] Performed By: #### 2 4321-2 ####[facility] LABORATORYCLIA [id number] [place] [address] [place] Sodium [Moles/Vol] 136 mmol/L Normal 136-144 [facility] Comment on above: Order Comment: Speci men Type: BLOOD SPECIMENOrdering Facility: [facility] Address: [address] [place] [address] Performed By: #### 2 4321-2 ####[facility] LABORATORYCLIA [id number] [place] [address] [place] Urea nitrogen [Mass/Vol] 39 mg/dL High 9-24 [facility] Comment on above: Order Comment: Speci men Type: BLOOD SPECIMENOrdering Facility: [facility] Address: [address] [place] [address] Performed By: #### 2 4321-2 ####[facility] LABORATORYCLIA [id number] [address] CBC panel Auto (Bld)on 11-05 Erythrocyte distribution width (RBC) [Ratio] 14.5 % Normal 11.5-15.0 [facility] Comment on above: Order Comment: Speci men Type: BLOOD SPECIMENOrdering Facility: [facility] Address: [address] [place] [address] Performed By: #### 5 8410-2 ####[facility] LABORATORYCLIA [id number] [address] [place] Hematocrit (Bld) [Volume fraction] 29.3 % Low 39.0-51.0 [facility] Comment on above: Order Comment: Speci men Type: BLOOD SPECIMENOrdering Facility: [facility] Address: [address] [place] [address] Performed By: #### 5 8410-2 ####[facility] LABORATORYCLIA [id number] [address] [place] Hemoglobin (Bld) [Mass/Vol] 8.9 g/dL Low 13.0-17.0 [facility] Comment on above: Order Comment: Speci men Type: BLOOD SPECIMENOrdering Facility: [facility] Address: [address] [place] [address] Performed By: #### 5 8410-2 ####[facility] LABORATORYCLIA [id number] [address] [place] MCH (RBC) [Entitic mass] 25.7 pg Low 26.0-34.0 [facility] Comment on above: Order Comment: Speci men Type: BLOOD SPECIMENOrdering Facility: [facility] Address: [address] [place] [address] Performed By: #### 5 8410-2 ####[facility] LABORATORYCLIA [id number] [address] STATES OF [facility] MCHC (RBC) [Mass/Vol] 30.4 g/dL Low 30.5-36.0 [facility] Comment on above: Order Comment: Speci men Type: BLOOD SPECIMENOrdering Facility: [facility] Address: [address] [place] [address] Performed By: #### 5 8410-2 ####[facility] LABORATORYCLIA [id number] [address] MCV (RBC) [Entitic vol] 84.7 fL Normal 80.0-100.0 [facility] Comment on above: Order Comment: Speci men Type: BLOOD SPECIMENOrdering Facility: [facility] Address: [address] [place] [address] Performed By: #### 5 8410-2 ####[facility] LABORATORYCLIA [id number] [address] Nucleated RBC (Bld) [#/Vol] 10*3/uL Normal <0.01 [facility] Comment on above: Order Comment: Speci men Type: BLOOD SPECIMENOrdering Facility: [facility] Address: [address] [place] [address] Performed By: #### 5 8410-2 ####[facility] LABORATORYCLIA [id number] [address] [place] Platelet mean volume (Bld) [Entitic vol] 10.8 fL Normal 9.0-12.7 [facility] Comment on above: Order Comment: Speci men Type: BLOOD SPECIMENOrdering Facility: [facility] Address: [address] [place] [address] Performed By: #### 5 8410-2 ####[facility] LABORATORYCLIA [id number] [address] [place] Platelets (Bld) [#/Vol] 303 10*3/uL Normal 150-400 [facility] Comment on above: Order Comment: Speci men Type: BLOOD SPECIMENOrdering Facility: [facility] Address: [address] [place] [address] Performed By: #### 5 8410-2 ####[facility] LABORATORYCLIA [id number] [address] OF [facility] RBC (Bld) [#/Vol] 3.46 10*6/uL Low 4.20-6.00 [facility] Comment on above: Order Comment: Speci men Type: BLOOD SPECIMENOrdering Facility: [facility] Address: [address] [place] [address] Performed By: #### 5 8410-2 ####[facility] LABORATORYCLIA [id number] [address] OF [facility] WBC (Bld) [#/Vol] 12.31 10*3/uL High 3.70-11.00 [facility] Comment on above: Order Comment: Speci men Type: BLOOD SPECIMENOrdering Facility: [facility] Address: [address] [place] [address] Performed By: #### 5 8410-2 ####[facility] LABORATORYCLIA [id number] [address] OF [facility] HISTORY PHYSICALon HISTORY PHYSICAL HNO ID: [id number] Author: JOSE ENRIQUE GARVEY APRN.MANAGER VEHICLE Service: ? Author Type: Nurse Practitioner Type: H&P Filed: 11/05/2023 12:40 Note Text: HISTORY AND PHYSICAL EXAMINATION SERVICE DATE: November 05, 2023 SERVICE TIME: 07:30 AM PRIMARY CARE PHYSICIAN: Riaz Garrison MD Assessment Patient has the following medical conditions which may affect loren-operative course: Problem List Items Addressed This Visit Cardiovascular Essential hypertension Current Assessment AND Plan Managed by PCP Controlled with meds Hyperlipidemia Current Assessment AND Plan Managed by PCP Controlled with meds S/P aorta repair Current Assessment AND Plan Managed by Cardiology Cardiac optimization in [facility] Pulmonary Chronic obstructive pulmonary disease with acute exacerbation (HCC) Current Assessment AND Plan Managed by Pulmonary Controlled with inhalers Former smoker Current Assessment AND Plan Former 2 PPD X 40 years Quit 2007 Nephrology CKD (chronic kidney disease) stage 3, GFR 30-59 ml/min (HCC) Current Assessment AND Plan Managed by PCP Hematology Anemia Current Assessment AND Plan Managed by PCP Other Preop examination Current Assessment AND Plan Patient has the following medical conditions which may affect loren-operative course addressed in assessment and plan today Cardiac optimization completed and in EPIC 10/23/23 Smart Activity Status Index: METS: Take care of self; that is eating, dressing, bathing, using the toilet (2.75 METs) DASI Score: 2.75 Patient denies any chest pain or undue shortness of breath with the above physical activity. ARISCAT Score: Age: >80 Preoperative SpO2: >=96% Respiratory infection in the last month: No Preoperative anemia: Yes Surgical incision: peripheral Duration of surgery: >3 hrs Emergency procedure: No ARISCAT Score: 50 ANESTHESIA FINDINGS: Intubation History: No history of difficult intubation. No abnormal airway history Significant Anesthesia Considerations: none Airway History: No history of difficult airway No abnormal airway history I - PHYSICAL EVALUATION AIRWAY Patient intubated: No. DENTAL Dentures, upper: complete. Dentures, lower: complete. II - ANESTHESIA PLAN Anesthetic Plan: general Beta Wagner Monitoring Plan Post Procedure Analgesic Plan REASON FOR VISIT: Desiree Ames is a 88 year old male who is scheduled for Procedure(s): ENDARTERECTOMY FEMORAL WITH ANGIOPLASTY- left femoral endarterectomy with iliac stenting (Left) at the request of Rene Bowling MD for routine HANDP. My final recommendation will be communicated back to the requesting physician by way of shared medical record or letter. 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) Chronic Midline Low Back Pain Without Sciatica Peripheral Arterial Disease (Hcc) Obesity, Class I, Bmi 30-34.9 Ckd (Chronic Kidney Disease) Stage 3, Gfr 30-59 Ml/Min (Hcc) Chronic Idiopathic Constipation S/P Turp (Status Post Transurethral Resection of Prostate) Acute Heart Failure With Preserved Ejection Fraction (Hcc) Aorto-Iliac Atherosclerosis (Hcc) (Hcc) Atherosclerosis of [place] Artery of Both Lower Extremities With Intermittent Claudication (Hcc) S/P Aorta Repair Former Smoker Superficial Femoral Artery Occlusion (Hcc) Respiratory Failure (Hcc) Abnormal Ankle Brachial Index (Marilee) Atherosclerosis of [place] Artery of Left Lower Extremity With Rest Pain (Hcc) Preop Examination COVID-19 Immunization Status Overdue - Covid-19 Vaccine ( season) Overdue since 06/07/2023 03/13/2022 Imm Admin: COVID-19 original vaccine, age 12+ yr, monovalent (PFIZER-BIONTECH - PURPLE TOP) 08/07/2021 Imm Admin: COVID-19 original vaccine, age 12+ yr, monovalent (PFIZER-BIONTECH - PURPLE TOP) 11/23/2020 Imm Admin: COVID-19 original vaccine, age 12+ yr, monovalent (PFIZER-BIONTECH - PURPLE TOP) Only the first 3 history entries have been loaded, but more history exists. CHIEF COMPLAINT: The reason for this visit is to perform a comprehensive review of the patient's past medical history, assess their current health status and obtain any additional testing required based on anesthesia guidelines. We will also identify any potential anesthesia problems or contraindications to the planned procedure. HPI: Patient presents to [facility] for the above procedure. 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 Has been monitored and managed by Cardiac and Vascu (more content not included)... Normal [facility] PT panel Coag (PPP)on 2023 INR Coag (PPP) [Relative time] 1.0 {INR} Normal 0.9-1.3 [facility] Comment on above: Order Comment: Speci men Type: BLOOD SPECIMENOrdering Facility: [facility] Address: [address] [place] [address] Result Comment: Dolly min K Antagonist (VKA) Therapeutic Range: INR 2 to 3 (Target INR of 2.5) Note: For patients treated with VKA drugs, such as warfarin, the [place] [employer] 2012 Guideline recommends a therapeutic INR range of 2 to 3 (target INR of 2.5). This recommendation includes high-risk patients with antiphospholipid syndrome with previous arterial or venous thromboembolism, current-generation mechanical or bioprosthetic aortic heart valve replacement. Note: Patients with mechanical aortic valve replacement and additional risk factors for thromboembolic events (atrial fibrillation, previous thromboembolism, LV dysfunction, hypercoagulable conditions) or an older generation mechanical AVR (i.e., ball in-Cage) or any mechanical MVR should have a INR therapeutic range of 2.5 to 3.5 (target INR of 3). Kneji GH, et al. Chest 2012, 141:7S-47S Joselo RA, et al. [facility] 2017, 70: 252-289 Performed By: #### 3 4528-0 ####[facility] LABCLIA [id number] [place] [address] [facility] PT Coag (PPP) [Time] 9.9 s Normal <13.1 [facility] Comment on above: Order Comment: Speci men Type: BLOOD SPECIMENOrdering Facility: [facility] Address: [address] [place] [address] Performed By: #### 3 4528-0 ####[facility] LABCLIA [id number] [place] [id number] [facility] TYPE AND SCREEN,30 DAYon HISTORICAL AB SCR STATUS Negative [facility] Comment on above: Order Comment: Speci men Type: BLOOD SPECIMEN [facility] Address: [address] [place] [address] Performed By: #### T SCR30 #### [facility] CLIA [id number] [address] Rh Nom (Bld) Negative [facility] Comment on above: Order Comment: Speci men Type: BLOOD SPECIMEN [facility] Address: [address] [place] [address] Performed By: #### T SCR30 #### [facility] CLIA [id number] [address] NURSING PROGon 11-04-2023 NURSING PROG HNO ID: [id number] Author: KARLY BATISTA RN Service: Nursing Author Type: Registered Nurse Type: Nursing Progress Note Filed: 11/04/2023 10:05 Note Text: Does patient want another opportunity to revisit surgical decision with surgeon prior to surgery? No If yes, message sent to surgeon. N/A Normal [facility] CNPNon 10-18-2023 CNPN Telephone (AGBukupe) CECILIODESIREE PLASCENCIA ([id number]) 1935 M Date Time Provider Department 10/18/23 RENE ZAPATA [facility] During your visit today, we recorded the following information about you: Bijal Zee APRN.MANAGER VEHICLE 10/18/2023 4:07 PM Signed Orders signed. Thank you, Bijal Zee APRN.MANAGER VEHICLE Allergies As of Date: 10/18/2023 Noted Allergy Reaction FELODIPINE 06/12/2005 2 - Rash LEVAQUIN (LEVOFLOXACIN) 06/12/2005 4 - Hives PLETAL (CILOSTAZOL) 01/23/2012 9 - Itching SULFA (SULFONAMIDE ANTIBIOTICS) 06/12/2005 9 - Itching Date Reviewed: 10/17/2023 Reviewed by: Lina Goss, COLLEEN - Fully Assessed Reason for Visit: Schedule Surgery [1330] Primary Visit Diagnosis:Superficial occlusion of femoral artery (HCC) [I70.209] Order(s):SURGICAL REQUEST - ELECTIVE (05/2020) [[id number]] Order #: [id number]: 1 HANDP FOR SURGERY [[id number]] Order #: [id number] CBC [SQCBC] Order #: [id number] FUTURE BASIC METABOLIC PNL [SQBMP] Order #: [id number] FUTURE PROTHROMBIN TIME/PT [SQPT] Order #: [id number] FUTURE TYPE AND SCREEN,30 DAY [[id number]] Order #: [id number] FUTURE Prescriptions as of 10/18/2023 - doxycycline (VIBRA-TABS) 100 mg tablet Take 100 mg by mouth two times a day. X 7 days - clopidogrel (PLAVIX) 75 mg tablet Take 1 tablet by mouth once daily. - insulin glargine (LANTUS SOLOSTAR U-100 INSULIN) 100 unit/mL (3 mL) - amLODIPine (NORVASC) 10 mg tablet Take 10 mg by mouth once daily. - AMMONIUM LACTATE TOPICAL Apply to affected area as needed. Lotion - dapagliflozin propanediol (FARXIGA) 10 mg tablet Take 10 mg by mouth daily with breakfast. - DOCUSATE SODIUM ORAL Take 100 mg by mouth twice daily. - spironolactone (ALDACTONE) 25 mg tablet Take 25 mg by mouth once daily. - iv contrast (will be provided with radiology [...] in the CT contrast administration guidelines link. - ibuprofen (MOTRIN) 200 mg tablet Take 200 mg by mouth every 6 hours as needed. - ipratropium-albuterol (DUONEB) 0.5 mg-3 mg(2.5 mg base)/3 mL nebu 4 TIMES DAILY NEEDED - furosemide (LASIX) 40 mg tablet Take 40 mg by mouth once daily. - carvedilol (COREG) 25 mg tablet Take 1 tablet by mouth twice daily. Dr. Pierre. - hydrALAZINE (APRESOLINE) 100 mg tablet Take 1 tablet by mouth three times daily. Dr. Pierre. - rOPINIRole (REQUIP) 0.5 mg tablet Take 1-3 tablets by mouth at bedtime as needed. Dr. Rivero - acetaminophen (TYLENOL) 500 mg tablet Take 500 mg by mouth every 8 hours as needed. - albuterol HFA (PROVENTIL HFA, VENTOLIN HFA) 90 mcg/actuation inhaler Inhale 2 Puffs as instructed. - tamsulosin (FLOMAX) 0.4 mg Take 0.4 mg by mouth once daily. - budesonide-formoterol (SYMBICORT) 160-4.5 mcg/actuation inhaler TWICE A DAY - peg 3350-Electrolytes (GOLYTELY) 236-22.74-6.74 -5.86 gram suspension Refer to printed prep instructions from your provider. - peg 3350-Electrolytes (GOLYTELY) 236-22.74-6.74 -5.86 gram suspension Drink half the jug 1st night (2L) half the jug the second night - carmellukast (SINGULAIR) 10 mg tablet TAKE 1 TABLET BY MOUTH DAILY AT BEDTIME. FOR NASAL ALLERGIES. - metFORMIN (GLUCOPHAGE) 850 mg tablet Take 1 tablet by mouth twice daily with meals. - isosorbide mononitrate ER (IMDUR) 30 mg 24 hr tablet Take 1 tablet by mouth once daily. - pantoprazole DR (PROTONIX) 40 mg tablet TAKE 1 TABLET BY MOUTH DAILY BEFORE BREAKFAST. TAKE ON EMPTY STOMACH, 1/2 HR BEFORE MEAL. - [employer] Power scooter Dx: Z74.90, R26.89, I73.9, J44.1, M54.5, G89.29 - Efjbya-Jsnmvjf-Erd Palm-Min 17 (PROSTATE THERAPY) cap Take 2 Each by mouth once daily. SUPER BETA PROSTATE. - coenzyme Q10 (COENZYME Q-10) 100 mg cap capsule 100 mg once daily. - ascorbic acid, vitamin C, (VITAMIN C) 500 mg tablet Take 500 mg by mouth once daily. - COQ10, LIPOSOMAL UBIQUINOL, ORAL Take 1 tablet by mouth once daily. - blood sugar diagnostic (BLOOD GLUCOSE TEST) test strip Test blood sugar(s) 2 times daily. Dx: Type 2 DM - Uncontrolled E11.65 Insulin: No - cholecalciferol, vitamin D3, (VITAMIN D3 ORAL) Take 4,000 Units by mouth once daily. - ipratropium bromide (ATROVENT) 42 mcg (0.06 %) nasal spray Use 2 Sprays in the nose four times daily. - loratadine 10 mg cap Take by mouth once daily. - triamcinolone acetonide (NASACORT AQ) 55 mcg nasal inhaler Use 2 Sprays in the nose once daily. - atorvastatin (LIPITOR) 40 mg tablet Take 1 tablet by mouth every other day. At bedtime for cholesterol. - nitroglycerin sublingual (NITROSTA (more content not included)... Normal [facility] Bacteria identified Cx Nom ( U)Ordered By: Joanna Negron on 10-15-2023 Culture, urine Positive [facility] Culture, urine Positive [facility] Basophil percentageOrdered B y: Joanna Negron on 10-15-2023 Basophil percentage 0-5 SEEN /hpf 0-5 [facility] Bilirubin Test strip Ql (U)O rdered By: Joanna Negron on 10-15-2023 Bilirubin Ql (U) Negative Negative [facility] Ketones Test strip Ql (U)Ord ered By: Joanna Negron on 10-15-2023 Ketones Ql (U) Negative Negative [facility] Mucus LM Ql (Urine sed)Order ed By: Joanna Negron on 10-15-2023 Mucus Ql (Urine sed) 1+ /hpf [facility] Nitrite Test strip Ql (U)Ord ered By: Joanna Negron on 10-15-2023 Nitrite Ql (U) Negative Negative [facility] No Panel Informationon 10-15 SVETLANA [facility] Clear [facility] 1000 g/dL [facility] Negative [facility] 1.010 [facility] 8.0 [facility] 0.2 mg/dL [facility] 3+ [facility] Positive [facility] Protein Test strip Ql (U)Ord ered By: Joanna Negron on 10-15-2023 Protein Ql (U) 100 mg/dl Negative [facility] Squamous epithelial cells de tection in urine sediment by light microscopyOrdered By: Joanna Negron on 10-15-2023 Epithelial cells.squamous LM Ql (Urine sed) 0-5 SEEN /hpf 0-5 [facility] Urine blood detectionOrdered By: Joanna Negron on 10-15-2023 RBC Ql (U) Negative Negative [facility] RBC Ql (U) 0-5 SEEN /hpf 0-5 [facility] Urine clarityOrdered By: Nita Negron on 10-15-2023 Clarity (U) Clear Clear [facility] Urine color determinationOrd ered By: Joanna Negron on 10-15-2023 Color (U) Yellow Yellow [facility] Urine glucose detectionOrder ed By: Joanna Negron on 10-15-2023 Glucose Ql (U) 1000 mg/dl Normal [facility] Urine leukocyte esterase det ection by dipstickOrdered By: Joanna Negron on 10-15-2023 Leukocyte esterase Test strip Ql (U) 100 /ul Negative [facility] Urine pHOrdered By: Joanna stover on 10-15-2023 pH (U) 8.0 [pH] 5.0 - 8.0 [facility] Urine sediment bacteria coun t by microscopy (number/high power field)Ordered By: Joanna Negron on 10-15-2023 Bacteria LM.HPF (Urine sed) [#/Area] 0 /[HPF] None Seen [facility] Urine specific gravity measu rementOrdered By: Joanna Negron on 10-15-2023 Specific gravity (U) [Rel density] 1.010 1.002-1.030 [facility] Urobilinogen Auto test strip Ql (U)Ordered By: Joanna Negron on 10-15-2023 Urobilinogen Ql (U) Normal mg/dl Normal [facility] - Hematology and Cell countson 09-16-2023 HbA1c (Bld) [Mass fraction] 7.3 % 4.2-6.3 [facility] No Panel Informationon 09-16 7.3 % 4.2-6.3 [facility] Absolute lymphocyte countOrd ered By: Rosa Collins on 09-12-2023 Lymphocytes Auto (Unsp spec) [#/Vol] 1.78 10*3/uL 0.83-4.51 [facility] Basophil percentageOrdered B y: Rosa Collins on 09-12-2023 Basophil percentage 135 mg/dL 74-106 [facility] Basophil percentage 137 mmol/L 136-145 [facility] Basophil percentage 3.9 mmol/L 3.5-5.1 [facility] Basophil percentage 105 mmol/L 98-107 [facility] Basophils (Bld) [#/Vol] 7.0 10*3/uL 4.4-11.0 [facility] Basophils (Bld) [#/Vol] 3.7 10*3/uL 2.0-7.7 [facility] Basophils/100 WBC (Bld) 53.8 % 47-70 [facility] Basophils/100 WBC (Bld) 4.7 % 0-5 [facility] Basophils/100 WBC (Bld) 0.7 % 0-1 [facility] Chloride [Moles/Vol] 105 mmol/L 98-107 [facility] Eosinophils/100 WBC (Bld) 4.7 % 0-5 [facility] Glucose [Mass/Vol] 135 mg/dL 74-106 [facility] Comment on above: Slight Lipemia, Resu lt may be falsely increased.Fasting Glucose result greater than or equal to 126 mg/dL suggests DIABETES MELLITUS per A.D.A. criteria. Neutrophils (Bld) [#/Vol] 3.7 10*3/uL 2.0-7.7 [facility] Neutrophils/100 WBC (Bld) 53.8 % 47-70 [facility] Potassium [Moles/Vol] 3.9 mmol/L 3.5-5.1 [facility] Comment on above: Slight Lipemia, Resu lt may be falsely increased. Sodium [Moles/Vol] 137 mmol/L 136-145 [facility] WBC (Bld) [#/Vol] 7.0 10*3/uL 4.4-11.0 [facility] Blood erythrocytes count (nu mber/volume)Ordered By: Rosa Collins on 09-12-2023 RBC (Bld) [#/Vol] 3.29 10*6/uL 4.6-6.2 [facility] Blood hemoglobin measurement (mass/volume)Ordered By: Rosa Collins on 09-12-2023 Hemoglobin (Bld) [Mass/Vol] 8.8 g/dL 13.0-16.5 [facility] Blood lymphocytes/100 leukoc ytesOrdered By: Rosa Collins on 09-12-2023 Lymphocytes/100 WBC (Bld) 25.5 % 19-41 [facility] Blood monocytes/100 leukocyt esOrdered By: Rosa Collins on 09-12-2023 Monocytes/100 WBC (Bld) 14.9 % 0-10 [facility] Blood platelet mean volumeOr dered By: Rosa Collins on 09-12-2023 Platelet mean volume (Bld) [Entitic vol] 10.3 fL 6.2-12.0 [facility] Determination of erythrocyte mean corpuscular volume (MCV)Ordered By: Rosa Collins on 09-12-2023 MCV (RBC) [Entitic vol] 87.5 fL 80-94 [facility] Glucose Glucometer (BldC) [M ass/Vol]Ordered By: Inocencio Perkins on 09-12-2023 Glucose [Mass/Vol] 189 mg/dL 74-106 [facility] Comment on above: MANAGEMENT OF PATIEN T CARE PER NURSING PROTOCOL Hematocrit Auto (Bld) [Volum e fraction]Ordered By: Rosa Collins on 09-12-2023 Hematocrit (Bld) [Volume fraction] 28.8 % 40-54 [facility] INR in Blood by Coagulation assayOrdered By: Rosa Collins on 09-12-2023 INR Coag (Bld) [Relative time] 1.1 {INR} [facility] Laboratory - Chemistry and C hemistry - challengeOrdered By: Rosa Collins on 09-12-2023 CO2 [Moles/Vol] 25.0 mmol/L 21.0-32.0 [facility] Comment on above: Slight Lipemia, Resu lt may be falsely increased. Urea nitrogen/Creatinine [Mass ratio] 17.8 mg/mg 10-20 [facility] Laboratory - CoagulationOrde red By: Rosa Collins on 09-12-2023 aPTT Coag (Bld) [Time] 31.3 s 24.1-36.2 [facility] PT Coag (PPP) [Time] 14.3 s 11.7-14.9 [facility] Laboratory - Hematology and Cell countsOrdered By: Rosa Collins on 09-12-2023 Erythrocyte distribution width (RBC) [Entitic vol] 45.1 fL 35.1-43.9 [facility] Erythrocyte distribution width (RBC) [Ratio] 14.1 % 11.6-14.6 [facility] Immature granulocytes/100 WBC (Bld) 0.400 % 0.0-0.9 [facility] Comment on above: IG% - Immature Granu locytes (promyelocytes, myelocytes and metamyelocytes) > 1% indicates that a LEFT SHIFT is Present. MCH (RBC) [Entitic mass] 26.7 pg 27.0-32.0 [facility] Nucleated RBC/100 WBC (Bld) [Ratio] 0 % 0-5 [facility] MCHC Auto (RBC) [Mass/Vol]Or dered By: Rosa Collins on 09-12-2023 MCHC (RBC) [Mass/Vol] 30.6 g/dL 32-36 [facility] No Panel InformationOrdered By: Rosa Collins on 09-12-2023 Estimated Creatinine Clearance Calc 23.42 ml/min [facility] Estimated GFR (MDRD) Amer 37 mL/min >60 [facility] Comment on above: GFR Calc Estimated GFR (MDRD) Non-Af Amer 31 mL/min >60 [facility] Comment on above: Non- GFR Calc Troponin I High Sensitivity 19 pg/mL 3.0-78.0 [facility] Comment on above: Please Note: New Ana t Units and Gender Specific Reference Ranges. For more information see Policy Stat Procedure [place] High Sensitivity Troponin (TNIH) and attachments. 26.7 pg 27.0-32.0 [facility] 14.1 % 11.6-14.6 [facility] 45.1 fl 35.1-43.9 [facility] 0.400 % 0.0-0.9 [facility] 0 % 0-5 [facility] 14.3 SECONDS 11.7-14.9 [facility] 31.3 Seconds 24.1-36.2 [facility] 31 mL/min >60 [facility] 37 mL/min >60 [facility] 23.42 ml/min [facility] 17.8 RATIO 10-20 [facility] 19 pg/mL 3.0-78.0 [facility] 25.0 mmol/L 21.0-32.0 [facility] Platelets bldOrdered By: Dorie Collins on 09-12-2023 Platelets (Bld) [#/Vol] 313 10*3/uL 150-450 [facility] Serum or plasma calcium harley urement (mass/volume)Ordered By: Rosa Collins on 09-12-2023 Calcium [Mass/Vol] 9.3 mg/dL 8.5-10.1 [facility] Comment on above: Slight Lipemia, Resu lt may be falsely increased. Serum or plasma creatinine m easurement (mass/volume)Ordered By: Rosa Collins on 09-12-2023 Creatinine [Mass/Vol] 2.19 mg/dL 0.70-1.30 [facility] Comment on above: Slight Lipemia, Resu lt may be falsely increased.The validity of the calculated GFR & GFRAA in patients over 70 years has not been determined. Clinical correlation is essential. Serum or plasma urea nitroge n measurement (mass/volume)Ordered By: Rosa Collins on 09-12-2023 Urea nitrogen [Mass/Vol] 39 mg/dL 7-18 [facility] Comment on above: Slight Lipemia, Resu lt may be falsely increased. Thin prep Papanicolaou smear with manual screeningOrdered By: Rosa Collins on 09-12-2023 Thin prep Papanicolaou smear with manual screening 02-18 [facility] BRIEF OP NOTon 09-06-2023 BRIEF OP NOT HNO ID: [id number] Author: Rene Zapata MD Service: Vascular Surgery Author Type: Physician Type: Brief Op Note Filed: 09/06/2023 1:00 PM Note Text: BRIEF OPERATIVE / PROCEDURE NOTE LOG ID: [id number] Surgery/Procedure Date: 09/06/2023 Incision/Procedure Start Time: 9:48 AM Incision Close/Procedure End Time: 12:37 PM Surgeon(s)/Proceduralis t(s) and Medical Insurance Coder(s): Surgeon(s) and Role: * Rene Zapata MD - Primary No Additional Staff Procedure(s): ANGIOGRAM EXTREMITY UNILATERAL RADIOLOGICAL: 56190 (CPT?) [place]USTEN Angio: Access: Right TRAY PACKER Closure: Proglide Contrast: 35 cc Fluorotime: 63.3 min, 371 mGy Anesthesia: Procedural Sedation ASA Class: ASA Class:: III Findings: see op note Pulses: LLE: [place] DP/PT RLE: Biphasic PT, [place] DP Current Outpatient Medications on File Prior to Encounter Medication Sig insulin glargine (LANTUS SOLOSTAR U-100 INSULIN) 100 [...] by mouth every 8 hours as needed. montelukast (SINGULAIR) 10 mg tablet TAKE 1 [...] mg cap Take by mouth once daily. Aspirin 81 mg ORAL Tab Take 1 tablet by mouth once daily. Take with food. DOCUSATE SODIUM ORAL Take 100 mg by mouth twice daily. iv contrast (will be provided with [...] by mouth every 6 hours as needed. albuterol HFA (PROVENTIL HFA, [...] tablet by mouth twice daily with meals. [employer] Power scooter Dx: Z74.90, R26.89, I73.9, J44.1, M54.5, G89.29 [employer] Palm-Min 17 (PROSTATE THERAPY) cap Take 2 Each by mouth once daily. SUPER BETA PROSTATE. COQ10, LIPOSOMAL UBIQUINOL, ORAL Take 1 tablet by mouth once daily. (Patient not taking: Reported on 05/25/2022) ipratropium bromide (ATROVENT) 42 mcg (0.06 %) nasal spray Use 2 Sprays in the nose four times daily. triamcinolone acetonide (NASACORT AQ) 55 mcg nasal inhaler Use 2 Sprays in the nose once daily. atorvastatin (LIPITOR) 40 mg tablet Take 1 tablet by mouth every other day. At bedtime for cholesterol. nitroglycerin sublingual (NITROSTAT) 0.4 mg SL tablet Dissolve 1 tablet under the tongue every 5 minutes as needed for Chest Pain. Estimated Blood Loss: 25 mL Specimens: * No specimens in log * Implants: * No implants in log * Complications: None Pre-Op/Pre-Procedure Diagnosis: PAD, Claudication Post-Op/Post-Procedure Diagnosis: PAD, Claudication, Left common iliac occlusion SIGNATURE: Rene Zapata MD PATIENT NAME: Desiree Ames DATE: September 06, 2023 TIME: 12:58 PM (more content not included)... Normal [facility] Basic metabolic 2000 panelon 09-06-2023 Anion gap [Moles/Vol] 13 mmol/L Normal 9-18 [facility] Comment on above: Order Comment: Speci men Type: BLOOD SPECIMEN Ordering Facility: [facility] Address: [address] [place] [address] Performed By: #### 2 4321-2 #### [facility] CLIA [id number] [address] [place] [address] [place] Calcium [Mass/Vol] 9.4 mg/dL Normal 8.5-10.2 [facility] Comment on above: Order Comment: Speci men Type: BLOOD SPECIMEN Ordering Facility: [facility] Address: [address] [place] [address] Performed By: #### 2 4321-2 #### [facility] CLIA [id number] [address] [place] [address] [place] Chloride [Moles/Vol] 103 mmol/L Normal 97-[address] [facility] Comment on above: Order Comment: Speci men Type: BLOOD SPECIMEN Ordering Facility: [facility] Address: [address] [place] [address] Performed By: #### 2 4321-2 #### [facility] CLIA [id number] [address] [place] [address] [place] CO2 [Moles/Vol] 22 mmol/L Normal 22-30 [facility] Comment on above: Order Comment: Speci men Type: BLOOD SPECIMEN Ordering Facility: [facility] Address: [address] [place] [address] Performed By: #### 2 4321-2 #### [facility] CLIA [id number] [address] [place] [address] [place] Creatinine [Mass/Vol] 1.92 mg/dL High 0.73-1.22 [facility] Comment on above: Order Comment: Speci men Type: BLOOD SPECIMEN Ordering Facility: [facility] Address: [address] [place] [address] Performed By: #### 2 4321-2 #### [facility] CLIA [id number] [address] [place] [address] [place] Creatinine and Glomerular filtration rate.predicted panel (S/P/Bld) 34 mL/min/1.73m??? Low >=60 [facility] Comment on above: Order Comment: Speci men Type: BLOOD SPECIMEN Ordering Facility: [facility] Address: [address] [place] [address] Result Comment: Dottie mated Glomerular Filtration Rate (eGFR) is calculated using the 2020 CKD-EPI creatinine equation. This equation utilizes serum creatinine, sex, and age as parameters. The creatinine assay has traceable calibration to isotope dilution-mass spectrometry. Refer to KDIGO guidelines for clinical interpretation. In patients with unstable renal function, e.g. those with acute kidney injury, the eGFR may not accurately reflect actual GFR. Performed By: #### 2 4321-2 #### [facility] CLIA [id number] [address] [place] [address] [place] Glucose [Mass/Vol] 145 mg/dL High 74-99 [facility] Comment on above: Order Comment: Emerson men Type: BLOOD SPECIMEN Ordering Facility: [facility] Address: [address] [place] [address] Result Comment: The [place] Diabetes Association (ADA) provides guidance for cutoff values for fasting glucose and random glucose. The ADA defines fasting as no caloric intake for at least 8 hours. Fasting plasma glucose results between 100 to 125 mg/dL indicate increased risk for diabetes (prediabetes). Fasting plasma glucose results greater than or equal to 126 mg/dL meet the criteria for diagnosis of diabetes. In the absence of unequivocal hyperglycemia, results should be confirmed by repeat testing. In a patient with classic symptoms of hyperglycemia or hyperglycemic crisis, random plasma glucose results greater than or equal to 200 mg/dL meet the criteria for diagnosis of diabetes. Reference: Standards of Medical Care in Diabetes 2016, [place] [employer] Association. Diabetes Care. 2016.39(Suppl 1). Performed By: #### 2 4321-2 #### [facility] CLIA [id number] [address] [place] [address] [place] Potassium [Moles/Vol] 3.7 mmol/L Normal 3.7-5.1 [facility] Comment on above: Order Comment: Mauricioi men Type: BLOOD SPECIMEN Ordering Facility: [facility] Address: [address] [place] [address] Performed By: #### 2 4321-2 #### [facility] CLIA [id number] [address] [place] [address] [place] Sodium [Moles/Vol] 138 mmol/L Normal 136-144 [facility] Comment on above: Order Comment: Speci men Type: BLOOD SPECIMEN Ordering Facility: [facility] Address: [address] [place] [address] Performed By: #### 2 4321-2 #### [facility] CLIA [id number] [address] [place] [facility] Urea nitrogen [Mass/Vol] 45 mg/dL High 9-24 [facility] Comment on above: Order Comment: Speci men Type: BLOOD SPECIMEN Ordering Facility: [facility] Address: [address] [place] [address] Performed By: #### 2 4321-2 #### [facility] CLIA [id number] [address] CBC panel Auto (Bld)on 09-06 Erythrocyte distribution width (RBC) [Ratio] 14.1 % Normal 11.5-15.0 [facility] Comment on above: Order Comment: Speci men Type: BLOOD SPECIMEN Ordering Facility: [facility] Address: [address] [place] [address] Performed By: #### 5 8410-2 #### [facility] CLIA [id number] [address] Hematocrit (Bld) [Volume fraction] 29.7 % Low 39.0-51.0 [facility] Comment on above: Order Comment: Speci men Type: BLOOD SPECIMEN Ordering Facility: [facility] Address: [address] [place] [address] Performed By: #### 5 8410-2 #### [facility] CLIA [id number] [address] Hemoglobin (Bld) [Mass/Vol] 9.8 g/dL Low 13.0-17.0 [facility] Comment on above: Order Comment: Speci men Type: BLOOD SPECIMEN Ordering Facility: [facility] Address: [address] [place] [address] Performed By: #### 5 8410-2 #### [facility] CLIA [id number] [address] [place] MCH (RBC) [Entitic mass] 28.5 pg Normal 26.0-34.0 [facility] Comment on above: Order Comment: Speci men Type: BLOOD SPECIMEN Ordering Facility: [facility] Address: [address] [place] [address] Performed By: #### 5 8410-2 #### [facility] CLIA [id number] [address] [place] [address] [place] MCHC (RBC) [Mass/Vol] 33.0 g/dL Normal 30.5-36.0 [facility] Comment on above: Order Comment: Speci men Type: BLOOD SPECIMEN Ordering Facility: [facility] Address: [address] [place] [address] Performed By: #### 5 8410-2 #### [facility] CLIA [id number] [address] [place] MCV (RBC) [Entitic vol] 86.3 fL Normal 80.0-100.0 [facility] Comment on above: Order Comment: Speci men Type: BLOOD SPECIMEN Ordering Facility: [facility] Address: [address] [place] [address] Performed By: #### 5 8410-2 #### [facility] CLIA [id number] [address] Nucleated RBC (Bld) [#/Vol] 10*3/uL Normal <0.01 [facility] Comment on above: Order Comment: Speci men Type: BLOOD SPECIMEN Ordering Facility: [facility] Address: [address] [place] [address] Performed By: #### 5 8410-2 #### [facility] CLIA [id number] [address] [place] Platelet mean volume (Bld) [Entitic vol] 10.0 fL Normal 9.0-12.7 [facility] Comment on above: Order Comment: Speci men Type: BLOOD SPECIMEN Ordering Facility: [facility] Address: [address] [place] [address] Performed By: #### 5 8410-2 #### [facility] CLIA [id number] [address] [place] Platelets (Bld) [#/Vol] 306 10*3/uL Normal 150-400 [facility] Comment on above: Order Comment: Speci men Type: BLOOD SPECIMEN Ordering Facility: [facility] Address: [address] [place] [address] Performed By: #### 5 8410-2 #### [facility] CLIA [id number] [address] [place] RBC (Bld) [#/Vol] 3.44 10*6/uL Low 4.20-6.00 [facility] Comment on above: Order Comment: Speci men Type: BLOOD SPECIMEN Ordering Facility: [facility] Address: [place] [address] Performed By: #### 5 8410-2 #### [facility] CLIA [id number] [address] WBC (Bld) [#/Vol] 7.94 10*3/uL Normal 3.70-11.00 [facility] Comment on above: Order Comment: Speci men Type: BLOOD SPECIMEN Ordering Facility: [facility] Address: [address] [place] [address] Performed By: #### 5 8410-2 #### [facility] CLIA [id number] [address] NURSING PROGon 09-06-2023 NURSING PROG HNO ID: [id number] Author: Mae Arredondo RN Service: ? Author Type: Registered Nurse Type: Nursing Progress Note Filed: 09/06/2023 5:26 PM Note Text: Pt sitting up. R groin site soft, no bleeding , no hematoma noted. Preparing patient for discharge home. [facility] OPERATIVE NOon 09-06-2023 OPERATIVE NO HNO ID: [id number] Author: Rene Zapata MD Service: Vascular Surgery Author Type: Physician Type: Operative Report Filed: 09/09/2023 12:07 PM Note Text: OPERATIVE/PROCEDURE REPORT LOG ID: [id number] Surgery/Procedure Date: 09/06/2023 Incision/Procedure Start Time: 9:48 AM Incision Close/Procedure End Time: 12:37 PM Surgeon(s)/Proceduralis t(s) and Medical Insurance Coder(s): Surgeon(s) and Role: * Rene Zapata MD - Primary No Additional Staff PROCEDURE INDICATION: 88 year old male who presents for angiogram with possible intervention for BLE short distance claudication, PAD. Prior to performing the angiogram with possible endovascular revascularization (atherectomy/head bellhop captain/stent) the risks and benefits of this planned approach were discussed with the patient in detail including but not limited to bleeding, arterial injury, infection, AK, contrast nephropathy, distal embolization and limb loss. We also discussed that the outcome of the arteriogram may be that open surgery to address the arterial disease. Alternatives of continued medical therapy and observation were discussed as well. Mr. Ames expressed a clear understanding of our discussion as well as the procedure and alternatives and agreed to proceed with an arteriogram. INTERVENTIONAL PROCEDURE: 1. Ultrasound-guided right common femoral access 2. Aorta and pelvic angiogram 3. Left ileofemoral angiogram 4. Right external iliac intravascular lithotripsy and DCB with 9x60 IN.PACT Anesthesia: Procedural Sedation PROCEDURAL DETAILS The patient was taken to the operating room and laid supine on the table. A timeout was performed with the nursing team confirming the patient's identity as well as the nature and laterality of the procedure. Moderate sedation consisting of continuous ECG, pulse oxymetry, cardiopulmonary monitoring, IV analgesia and sedation was performed by the nurse, overseen by the performing physician(s). The patient received preoperative antibiotics. After adequate induction of anesthesia the bilateral groins were prepped and draped in the usual sterile fashion. . Using local anesthesia, ultrasound guidance, and a micropuncture system, the right TRAY PACKER was accessed. A 5-Maori sheath was exchanged into the TRAY PACKER over a stiff glide wire. The wire and a omni flush catheter were advanced into the distal abdominal aorta and a diagnostic aorto-biiliac arteriogram was performed. Systemic heparin was administered and ACT values monitored with redosing as appropriate for the remainder of the case. Next, up and over access was obtained utilizing a TourGuide sheath. With the catheter positioned in the contralateral external iliac artery, angiography was performed with selected DSA runs showing critical stenosis of the left external iliac artery. The left external iliac lesion was unable to be crossed despite a variety of wires and catheters used. At this point, I attempted to gain left sided common femoral access in order to transverse the iliac lesion in a retrograde fashion. Under ultrasound guidance, I was unable to find a heathy portion of the vessel to access and therefore retrograde access was aborted. At this time, I turned by attention to the right external iliac lesion. This was treated with a 8x30 Shockwave IVL balloon throughout its entirety followed by a 9x60 DCB. Completion arteriogram revealed flow through the intervened upon segment improved with a technically satisfactory result and no evidence of significant residual stenosis. Protamine was administered to reverse the anticoagulation. A Perclose closure device was used and additional manual pressure was held until hemostasis achieved. On-table duplex ultrasound was performed confirming no access site pseudoaneurysm, dissection, or occlusion. The patient tolerated the procedure well and was taken to the PACU in stable condition. ARTERIOGRAM FINDINGS: Aorta: patent aortoiliac bifurcated graft Left Lower Extremity: Common iliac artery: Normal External iliac artery: Calcification - Severe with luminal occlusion, distal reconstitution through epigastric collateral Common femoral artery: Calcification - Severe Profunda femoral artery: patent proximally Superficial femoral artery: not visualized Right Lower Extremity: Common iliac artery: Normal External iliac artery: Calcification - Moderate with > 50% stenosis Common femoral artery: Calcification - Mild Pre-Op/Pre-Procedure Diagnosis: Pre-Op Diagnosis Codes: * PAD (peripheral artery disease) ([facility]) [I73.9] with claudication Post-Op/Post-Procedure Diagnosis: Same Estimated Blood Loss: 15 mls Specimens: None Implantable Devices: * No implants in log * Drains: None Complications: None I/primary surgeon/proceduralist performed the entire procedure. Rene Zapata MD [facility] Basophil percentageOrdered B y: Jonny Abebe on 08-26-2023 Basophil percentage 131 mg/dL 74-106 [facility] Basophil percentage 140 mmol/L 136-145 [facility] Basophil percentage 4.0 mmol/L 3.5-5.1 [facility] Basophil percentage 105 mmol/L 98-107 [facility] Chloride [Moles/Vol] 105 mmol/L 98-107 [facility] Glucose [Mass/Vol] 131 mg/dL 74-106 [facility] Comment on above: Slight Lipemia, Resu lt may be falsely increased.Fasting Glucose result greater than or equal to 126 mg/dL suggests DIABETES MELLITUS per A.D.A. criteria. Potassium [Moles/Vol] 4.0 mmol/L 3.5-5.1 [facility] Comment on above: Slight Lipemia, Resu lt may be falsely increased. Sodium [Moles/Vol] 140 mmol/L 136-145 [facility] Bilirubin Test strip Ql (U)O rdered By: Jonny Abebe on 08-26-2023 Bilirubin Ql (U) Negative Negative [facility] Ketones Test strip Ql (U)Ord ered By: Jonny Abebe on 08-26-2023 Ketones Ql (U) Negative Negative [facility] Laboratory - Chemistry and C hemistry - challengeOrdered By: Jonny Abebe on 08-26-2023 Albumin [Mass/Vol] 3.7 g/dL 2.9-4.4 [facility] CO2 [Moles/Vol] 26.0 mmol/L 21.0-32.0 [facility] Comment on above: Slight Lipemia, Resu lt may be falsely increased. Urea nitrogen/Creatinine [Mass ratio] 16.1 mg/mg 07-26 [facility] Nitrite Test strip Ql (U)Ord ered By: Jonny Abebe on 08-26-2023 Nitrite Ql (U) Negative Negative [facility] No Panel InformationOrdered By: Jonny Abebe on 08-26-2023 Addendum Document Comment . [facility] Comment on above: The SPE pattern demo nstrates a single peak (M-spike) in thegamma region which may represent monoclonal protein. Thispeak may also be caused by circulating immune complexes,cryoglobulins, C-reactive protein, fibrinogen or hemolysis. If clinically indicated, the presence of a monoclonalgammopathy may be confirmed by immuno-fixation, as well asan evaluation of the urine for the presence of Bence-Jonesprotein.Performed at: [facility] [id number] Director: Patric Hughes PhD, Phone: [phone] Klaxi-8-Hnsuahniw 0.2 g/dL 0.0-0.4 [facility] Ivscd-5-Weqmdhyhi 0.9 g/dL 0.4-1.0 [facility] Estimated GFR (MDRD) Amer 35 mL/min >60 [facility] Comment on above: GFR Calc Estimated GFR (MDRD) Non-Af Amer 29 mL/min >60 [facility] Comment on above: Non- GFR Calc Gamma Globulins 1.3 g/dL 0.4-1.8 [facility] 29 mL/min >60 [facility] 35 mL/min >60 [facility] 16.1 RATIO 10-20 [facility] 26.0 mmol/L 21.0-32.0 [facility] 3.7 g/dL 2.9-4.4 [facility] 0.2 g/dL 0.0-0.4 [facility] 0.9 g/dL 0.4-1.0 [facility] 1.3 g/dL 0.4-1.8 [facility] Protein Fractions Elph [Inte rp]Ordered By: Jonny Abebe on 08-26-2023 Protein Fractions [Interp] Comment . [facility] Comment on above: Protein electrophore sis scan will follow via computer,mail, or financial systems manager delivery. Protein Test strip Ql (U)Ord ered By: Jonny Abebe on 08-26-2023 Protein Ql (U) 15 mg/dl Negative [facility] Serum albumin to globulin ra sharona by protein electrophoresisOrdered By: Jonny Abebe on 08-26-2023 Albumin/Globulin Elph [Mass ratio] 1.1 0.7-1.7 [facility] Serum globulin measurement ( mass/volume)Ordered By: Jonny Abebe on 08-26-2023 Globulin (S) [Mass/Vol] 3.3 g/dL 2.2-3.9 [facility] Serum or plasma beta globuli n measurement by electrophoresis (mass/volume)Ordered By: Jonny Abebe on 08-26-2023 Beta globulin Elph [Mass/Vol] 0.8 g/dL 0.7-1.3 [facility] Serum or plasma calcium harley urement (mass/volume)Ordered By: Jonny Abebe on 08-26-2023 Calcium [Mass/Vol] 9.1 mg/dL 8.5-10.1 [facility] Comment on above: Slight Lipemia, Resu lt may be falsely increased. Serum or plasma creatinine m easurement (mass/volume)Ordered By: Jonny Abebe on 08-26-2023 Creatinine [Mass/Vol] 2.30 mg/dL 0.70-1.30 [facility] Comment on above: Slight Lipemia, Resu lt may be falsely increased.The validity of the calculated GFR & GFRAA in patients over 70 years has not been determined. Clinical correlation is essential. Serum or plasma protein mono clonal measurement by electrophoresis (mass/volume)Ordered By: Jonny Abebe on 08-26-2023 Protein.monoclonal Elph [Mass/Vol] 0.6 g/dL Not Observed [facility] Serum or plasma urea nitroge n measurement (mass/volume)Ordered By: Jonny Abebe on 08-26-2023 Urea nitrogen [Mass/Vol] 37 mg/dL 7-18 [facility] Thin prep Papanicolaou smear with manual screeningOrdered By: Jonny Abebe on 08-26-2023 Thin prep Papanicolaou smear with manual screening 9 5-15 [facility] Total protein bloodOrdered B y: Jonny Abebe on 08-26-2023 Protein [Mass/Vol] 7.0 g/dL 6.0-8.5 [facility] Urine blood detectionOrdered By: Jonny Abebe on 08-26-2023 RBC Ql (U) Negative Negative [facility] Urine clarityOrdered By: Rex Abebe on 08-26-2023 Clarity (U) Clear Clear [facility] Urine color determinationOrd ered By: Jonny Abebe on 08-26-2023 Color (U) Yellow Yellow [facility] Urine creatinine measurement (mass/volume)Ordered By: Jonny Abebe on 08-26-2023 Creatinine (U) [Mass/Vol] 38.70 mg/dL NO RANGE EST. [facility] Urine glucose detectionOrder ed By: Jonny Abebe on 08-26-2023 Glucose Ql (U) 1000 mg/dl Normal [facility] Urine leukocyte esterase det ection by dipstickOrdered By: Jonny Abebe on 08-26-2023 Leukocyte esterase Test strip Ql (U) 500 /ul Negative [facility] Urine pHOrdered By: Vida Abebe on 08-26-2023 pH (U) 6.0 [pH] 5.0 - 8.0 [facility] Urine protein measurement (m ass/volume)Ordered By: Jonny Abebe on 08-26-2023 Protein (U) [Mass/Vol] 14.7 mg/dL 0.0-11.8 [facility] Urine protein/creatinine mas s ratioOrdered By: Jonny Abebe on 08-26-2023 Protein/Creatinine (U) [Mass ratio] 380 mg/g CRE 0-200 [facility] Urine specific gravity measu rementOrdered By: Jonny Abebe on 08-26-2023 Specific gravity (U) [Rel density] 1.010 1.002-1.030 [facility] Urobilinogen Auto test strip Ql (U)Ordered By: Jonny Abebe on 08-26-2023 Urobilinogen Ql (U) Normal mg/dl Normal [facility] Absolute lymphocyte countOrd ered By: Riaz Garrison on 07-18-2023 Lymphocytes Auto (Unsp spec) [#/Vol] 2.15 10*3/uL 0.83-4.51 [facility] Basophil percentageOrdered B y: Riaz Garrison on 07-18-2023 Basophil percentage 176 mg/dL 74-106 [facility] Basophil percentage 7.5 g/dL 6.4-8.2 [facility] Basophil percentage 0.40 mg/dL 0.20-1.00 [facility] Basophil percentage 137 mmol/L 136-145 [facility] Basophil percentage 4.2 mmol/L 3.5-5.1 [facility] Basophil percentage 103 mmol/L 98-107 [facility] Basophils (Bld) [#/Vol] 8.1 10*3/uL 4.4-11.0 [facility] Basophils (Bld) [#/Vol] 4.5 10*3/uL 2.0-7.7 [facility] Basophils/100 WBC (Bld) 0.6 % 0-1 [facility] Basophils/100 WBC (Bld) 54.9 % 47-70 [facility] Basophils/100 WBC (Bld) 4.1 % 0-5 [facility] Bilirubin [Mass/Vol] 0.40 mg/dL 0.20-1.00 [facility] Comment on above: Slight Lipemia, Resu lt may be falsely increased. For patients on eltrombopag therapy, use of Dimension [place] TBIL is not recommended. Chloride [Moles/Vol] 103 mmol/L 98-107 [facility] Eosinophils/100 WBC (Bld) 4.1 % 0-5 [facility] Glucose [Mass/Vol] 176 mg/dL 74-106 [facility] Comment on above: Slight Lipemia, Resu lt may be falsely increased.Fasting Glucose result greater than or equal to 126 mg/dL suggests DIABETES MELLITUS per A.D.A. criteria. Neutrophils (Bld) [#/Vol] 4.5 10*3/uL 2.0-7.7 [facility] Neutrophils/100 WBC (Bld) 54.9 % 47-70 [facility] Potassium [Moles/Vol] 4.2 mmol/L 3.5-5.1 [facility] Comment on above: Slight Lipemia, Resu lt may be falsely increased. Protein [Mass/Vol] 7.5 g/dL 6.4-8.2 [facility] Comment on above: Slight Lipemia, Resu lt may be falsely increased. Sodium [Moles/Vol] 137 mmol/L 136-145 [facility] WBC (Bld) [#/Vol] 8.1 10*3/uL 4.4-11.0 [facility] Blood erythrocytes count (nu mber/volume)Ordered By: Riaz Garrison on 07-18-2023 RBC (Bld) [#/Vol] 3.49 10*6/uL 4.6-6.2 [facility] Blood hemoglobin measurement (mass/volume)Ordered By: Riaz Garrison on 07-18-2023 Hemoglobin (Bld) [Mass/Vol] 9.5 g/dL 13.0-16.5 [facility] Blood lymphocytes/100 leukoc ytesOrdered By: Riaz Garrison on 07-18-2023 Lymphocytes/100 WBC (Bld) 26.5 % 19-41 [facility] Blood monocytes/100 leukocyt esOrdered By: Riaz Garrison on 07-18-2023 Monocytes/100 WBC (Bld) 13.5 % 0-10 [facility] Blood platelet mean volumeOr dered By: Riaz Garrison on 07-18-2023 Platelet mean volume (Bld) [Entitic vol] 10.7 fL 6.2-12.0 [facility] Determination of erythrocyte mean corpuscular volume (MCV)Ordered By: Riaz Garrison on 07-18-2023 MCV (RBC) [Entitic vol] 93.1 fL 80-94 [facility] Hematocrit Auto (Bld) [Volum e fraction]Ordered By: Riaz Garrison on 07-18-2023 Hematocrit (Bld) [Volume fraction] 32.5 % 40-54 [facility] Laboratory - Chemistry and C hemistry - challengeOrdered By: Riaz Garrison on 07-18-2023 ALP [Catalytic activity/Vol] 73 U/L 45-117 [facility] ALT [Catalytic activity/Vol] 20 U/L 16-61 [facility] Comment on above: Slight Lipemia, Resu lt may be falsely increased. CO2 [Moles/Vol] 28.0 mmol/L 21.0-32.0 [facility] Comment on above: Slight Lipemia, Resu lt may be falsely increased. Globulin (S) [Mass/Vol] 4.0 g/dL 2.2-4.2 [facility] Urea nitrogen/Creatinine [Mass ratio] 12.7 mg/mg 10-20 [facility] Laboratory - Hematology and Cell countsOrdered By: Riaz Garrison on 07-18-2023 Erythrocyte distribution width (RBC) [Entitic vol] 44.2 fL 35.1-43.9 [facility] Erythrocyte distribution width (RBC) [Ratio] 13.0 % 11.6-14.6 [facility] Immature granulocytes/100 WBC (Bld) 0.400 % 0.0-0.9 [facility] Comment on above: IG% - Immature Granu locytes (promyelocytes, myelocytes and metamyelocytes) > 1% indicates that a LEFT SHIFT is Present. MCH (RBC) [Entitic mass] 27.2 pg 27.0-32.0 [facility] Nucleated RBC/100 WBC (Bld) [Ratio] 0 % 0-5 [facility] MCHC Auto (RBC) [Mass/Vol]Or dered By: Riaz Garrison on 07-18-2023 MCHC (RBC) [Mass/Vol] 29.2 g/dL 32-36 [facility] No Panel InformationOrdered By: Riaz Garrison on 07-18-2023 Estimated GFR (MDRD) Amer 37 mL/min >60 [facility] Comment on above: GFR Calc Estimated GFR (MDRD) Non-Af Amer 30 mL/min >60 [facility] Comment on above: Non- GFR Calc 27.2 pg 27.0-32.0 [facility] 13.0 % 11.6-14.6 [facility] 44.2 fl 35.1-43.9 [facility] 0.400 % 0.0-0.9 [facility] 0 % 0-5 [facility] 30 mL/min >60 [facility] 37 mL/min >60 [facility] 12.7 RATIO 10-20 [facility] 4.0 g/dL 2.2-4.2 [facility] 73 U/L 45-117 [facility] 20 U/L 16-61 [facility] 28.0 mmol/L 21.0-32.0 [facility] Platelets bldOrdered By: Eduin Garrison on 07-18-2023 Platelets (Bld) [#/Vol] 327 10*3/uL 150-450 [facility] Serum or plasma albumin harley urement (mass/volume)Ordered By: Riaz Garrison on 07-18-2023 Albumin [Mass/Vol] 3.5 g/dL 3.2-5.0 [facility] Serum or plasma albumin/glob ulin mass ratioOrdered By: Riaz Garrison on 07-18-2023 Albumin/Globulin [Mass ratio] 0.9 {ratio} 0.9-2.4 [facility] Serum or plasma calcium harley urement (mass/volume)Ordered By: Riaz Garrison on 07-18-2023 Calcium [Mass/Vol] 9.2 mg/dL 8.5-10.1 [facility] Comment on above: Slight Lipemia, Resu lt may be falsely increased. Serum or plasma creatinine m easurement (mass/volume)Ordered By: Riaz Garrison on 07-18-2023 Creatinine [Mass/Vol] 2.21 mg/dL 0.70-1.30 [facility] Comment on above: Slight Lipemia, Resu lt may be falsely increased.The validity of the calculated GFR & GFRAA in patients over 70 years has not been determined. Clinical correlation is essential. Serum or plasma urea nitroge n measurement (mass/volume)Ordered By: Riaz Garrison on 07-18-2023 Urea nitrogen [Mass/Vol] 28 mg/dL 7-18 [facility] Comment on above: Slight Lipemia, Resu lt may be falsely increased. Thin prep Papanicolaou smear with manual screeningOrdered By: Riaz Garrison on 07-18-2023 Thin prep Papanicolaou smear with manual screening 14 U/L 15-37 [facility] Comment on above: Slight Lipemia, Resu lt may be falsely increased. Thin prep Papanicolaou smear with manual screening 6 5-15 [facility] Absolute lymphocyte countOrd ered By: Riaz Garrison on 05-29-2023 Lymphocytes Auto (Unsp spec) [#/Vol] 2.11 10*3/uL 0.83-4.51 [facility] Basophil percentageOrdered B y: Riaz Garrison on 05-29-2023 Basophil percentage 149 mg/dL 74-106 [facility] Basophil percentage 7.2 g/dL 6.4-8.2 [facility] Basophil percentage 0.40 mg/dL 0.20-1.00 [facility] Basophil percentage 139 mmol/L 136-145 [facility] Basophil percentage 4.5 mmol/L 3.5-5.1 [facility] Basophil percentage 107 mmol/L 98-107 [facility] Basophils (Bld) [#/Vol] 6.9 10*3/uL 4.4-11.0 [facility] Basophils (Bld) [#/Vol] 3.5 10*3/uL 2.0-7.7 [facility] Basophils/100 WBC (Bld) 0.6 % 0-1 [facility] Basophils/100 WBC (Bld) 51.1 % 47-70 [facility] Basophils/100 WBC (Bld) 4.8 % 0-5 [facility] Bilirubin [Mass/Vol] 0.40 mg/dL 0.20-1.00 [facility] Comment on above: For patients on eltr ombopag therapy, use of Dimension [place] TBIL is not recommended. Chloride [Moles/Vol] 107 mmol/L 98-107 [facility] Eosinophils/100 WBC (Bld) 4.8 % 0-5 [facility] Glucose [Mass/Vol] 149 mg/dL 74-106 [facility] Comment on above: Fasting Glucose resu lt greater than or equal to 126 mg/dL suggests DIABETES MELLITUS per A.D.A. criteria. Neutrophils (Bld) [#/Vol] 3.5 10*3/uL 2.0-7.7 [facility] Neutrophils/100 WBC (Bld) 51.1 % 47-70 [facility] Potassium [Moles/Vol] 4.5 mmol/L 3.5-5.1 [facility] Protein [Mass/Vol] 7.2 g/dL 6.4-8.2 [facility] Sodium [Moles/Vol] 139 mmol/L 136-145 [facility] WBC (Bld) [#/Vol] 6.9 10*3/uL 4.4-11.0 [facility] Blood erythrocytes count (nu mber/volume)Ordered By: Riaz Garrison on 05-29-2023 RBC (Bld) [#/Vol] 3.48 10*6/uL 4.6-6.2 [facility] Blood hemoglobin measurement (mass/volume)Ordered By: Riaz Garrison on 05-29-2023 Hemoglobin (Bld) [Mass/Vol] 10.0 g/dL 13.0-16.5 [facility] Blood lymphocytes/100 leukoc ytesOrdered By: Riaz Garrison on 05-29-2023 Lymphocytes/100 WBC (Bld) 30.5 % 19-41 [facility] Blood monocytes/100 leukocyt esOrdered By: Riaz Garrison on 05-29-2023 Monocytes/100 WBC (Bld) 12.6 % 0-10 [facility] Blood platelet mean volumeOr dered By: Riaz Garrison on 05-29-2023 Platelet mean volume (Bld) [Entitic vol] 10.3 fL 6.2-12.0 [facility] Determination of erythrocyte mean corpuscular volume (MCV)Ordered By: Riaz Garrison on 05-29-2023 MCV (RBC) [Entitic vol] 93.1 fL 80-94 [facility] Hematocrit Auto (Bld) [Volum e fraction]Ordered By: Riaz Garrison on 05-29-2023 Hematocrit (Bld) [Volume fraction] 32.4 % 40-54 [facility] Laboratory - Chemistry and C hemistry - challengeOrdered By: Riaz Garrison on 05-29-2023 ALP [Catalytic activity/Vol] 75 U/L 45-117 [facility] ALT [Catalytic activity/Vol] 22 U/L 16-61 [facility] CO2 [Moles/Vol] 23.0 mmol/L 21.0-32.0 [facility] Globulin (S) [Mass/Vol] 3.6 g/dL 2.2-4.2 [facility] Urea nitrogen/Creatinine [Mass ratio] 15.6 mg/mg 10-20 [facility] Laboratory - Hematology and Cell countsOrdered By: Riaz Garrison on 05-29-2023 Erythrocyte distribution width (RBC) [Entitic vol] 45.3 fL 35.1-43.9 [facility] Erythrocyte distribution width (RBC) [Ratio] 13.3 % 11.6-14.6 [facility] Immature granulocytes/100 WBC (Bld) 0.400 % 0.0-0.9 [facility] Comment on above: IG% - Immature Granu locytes (promyelocytes, myelocytes and metamyelocytes) > 1% indicates that a LEFT SHIFT is Present. MCH (RBC) [Entitic mass] 28.7 pg 27.0-32.0 [facility] Nucleated RBC/100 WBC (Bld) [Ratio] 0 % 0-5 [facility] MCHC Auto (RBC) [Mass/Vol]Or dered By: Riaz Garrison on 05-29-2023 MCHC (RBC) [Mass/Vol] 30.9 g/dL 32-36 [facility] No Panel InformationOrdered By: Riaz Garrison on 05-29-2023 Estimated GFR (MDRD) Amer 41 mL/min >60 [facility] Comment on above: GFR Calc Estimated GFR (MDRD) Non-Af Amer 34 mL/min >60 [facility] Comment on above: Non- GFR Calc 28.7 pg 27.0-32.0 [facility] 13.3 % 11.6-14.6 [facility] 45.3 fl 35.1-43.9 [facility] 0.400 % 0.0-0.9 [facility] 0 % 0-5 [facility] 34 mL/min >60 [facility] 41 mL/min >60 [facility] 15.6 RATIO 10-20 [facility] 3.6 g/dL 2.2-4.2 [facility] 75 U/L 45-117 [facility] 22 U/L 16-61 [facility] 23.0 mmol/L 21.0-32.0 [facility] Platelets bldOrdered By: Eduin Garrison on 05-29-2023 Platelets (Bld) [#/Vol] 308 10*3/uL 150-450 [facility] Serum or plasma albumin harley urement (mass/volume)Ordered By: Riaz Garrison on 05-29-2023 Albumin [Mass/Vol] 3.6 g/dL 3.2-5.0 [facility] Serum or plasma albumin/glob ulin mass ratioOrdered By: Riaz Garrison on 05-29-2023 Albumin/Globulin [Mass ratio] 1.0 {ratio} 0.9-2.4 [facility] Serum or plasma calcium harley urement (mass/volume)Ordered By: Riaz Garrison on 05-29-2023 Calcium [Mass/Vol] 9.4 mg/dL 8.5-10.1 [facility] Serum or plasma creatinine m easurement (mass/volume)Ordered By: Riaz Garrison on 05-29-2023 Creatinine [Mass/Vol] 1.99 mg/dL 0.70-1.30 [facility] Comment on above: The validity of the calculated GFR & GFRAA in patients over 70 years has not been determined. Clinical correlation is essential. Serum or plasma urea nitroge n measurement (mass/volume)Ordered By: Riaz Garrison on 05-29-2023 Urea nitrogen [Mass/Vol] 31 mg/dL 7-18 [facility] Thin prep Papanicolaou smear with manual screeningOrdered By: Riaz Garrison on 05-29-2023 Thin prep Papanicolaou smear with manual screening 18 U/L 15-37 [facility] Thin prep Papanicolaou smear with manual screening 9 5-15 [facility] CREATININE BLDon 05-22-2023 Creatinine [Mass/Vol] 2.25 mg/dL High 0.73 - 1.22 mg/dL [facility] Estimated Glomerular Filtration Rate 28 mL/min/1.73m Low >=60 mL/min/1.73 m [facility] Absolute lymphocyte countOrd ered By: Riaz Garrison on 05-16-2023 Lymphocytes Auto (Unsp spec) [#/Vol] 1.94 10*3/uL 0.83-4.51 [facility] Basophil percentageOrdered B y: Marguerite Jennings on 05-16-2023 Basophil percentage 102 mg/dL 74-106 [facility] Basophil percentage 136 mmol/L 136-145 [facility] Basophil percentage 5.0 mmol/L 3.5-5.1 [facility] Basophil percentage 103 mmol/L 98-107 [facility] Chloride [Moles/Vol] 103 mmol/L 98-107 [facility] Glucose [Mass/Vol] 102 mg/dL 74-106 [facility] Comment on above: Slight Lipemia, Resu lt may be falsely increased.Fasting Glucose result from 100 to 125 mg/dL suggests IMPAIRED HOMEOSTASIS per A.D.A. criteria. Potassium [Moles/Vol] 5.0 mmol/L 3.5-5.1 [facility] Comment on above: Slight Lipemia, Resu lt may be falsely increased. Sodium [Moles/Vol] 136 mmol/L 136-145 [facility] Basophil percentageOrdered B y: Riaz Garrison on 05-16-2023 Basophils (Bld) [#/Vol] 6.7 10*3/uL 4.4-11.0 [facility] Basophils (Bld) [#/Vol] 3.7 10*3/uL 2.0-7.7 [facility] Basophils/100 WBC (Bld) 0.7 % 0-1 [facility] Basophils/100 WBC (Bld) 54.8 % 47-70 [facility] Basophils/100 WBC (Bld) 4.0 % 0-5 [facility] Eosinophils/100 WBC (Bld) 4.0 % 0-5 [facility] Neutrophils (Bld) [#/Vol] 3.7 10*3/uL 2.0-7.7 [facility] Neutrophils/100 WBC (Bld) 54.8 % 47-70 [facility] WBC (Bld) [#/Vol] 6.7 10*3/uL 4.4-11.0 [facility] Blood erythrocytes count (nu mber/volume)Ordered By: Riaz Garrison on 05-16-2023 RBC (Bld) [#/Vol] 2.71 10*6/uL 4.6-6.2 [facility] Blood hemoglobin measurement (mass/volume)Ordered By: Riaz Garrison on 05-16-2023 Hemoglobin (Bld) [Mass/Vol] 9.8 g/dL 13.0-16.5 [facility] Blood lymphocytes/100 leukoc ytesOrdered By: Riaz Garrison on 05-16-2023 Lymphocytes/100 WBC (Bld) 28.8 % 19-41 [facility] Blood monocytes/100 leukocyt esOrdered By: Riaz Garrison on 05-16-2023 Monocytes/100 WBC (Bld) 11.3 % 0-10 [facility] Blood platelet mean volumeOr dered By: Riaz Garrison on 05-16-2023 Platelet mean volume (Bld) [Entitic vol] 10.1 fL 6.2-12.0 [facility] Determination of erythrocyte mean corpuscular volume (MCV)Ordered By: Riaz Garrison on 05-16-2023 MCV (RBC) [Entitic vol] 97.0 fL 80-94 [facility] Hematocrit Auto (Bld) [Volum e fraction]Ordered By: Riaz Garrison on 05-16-2023 Hematocrit (Bld) [Volume fraction] 26.3 % 40-54 [facility] Laboratory - Chemistry and C hemistry - challengeOrdered By: Marguerite Jennings on 05-16-2023 CO2 [Moles/Vol] 25.0 mmol/L 21.0-32.0 [facility] Comment on above: Slight Lipemia, Resu lt may be falsely increased. Urea nitrogen/Creatinine [Mass ratio] 19.7 mg/mg 10-20 [facility] Laboratory - Hematology and Cell countsOrdered By: Riaz Garrison on 05-16-2023 Erythrocyte distribution width (RBC) [Entitic vol] 46.7 fL 35.1-43.9 [facility] Erythrocyte distribution width (RBC) [Ratio] 14.1 % 11.6-14.6 [facility] Immature granulocytes/100 WBC (Bld) 0.400 % 0.0-0.9 [facility] Comment on above: IG% - Immature Granu locytes (promyelocytes, myelocytes and metamyelocytes) > 1% indicates that a LEFT SHIFT is Present. MCH (RBC) [Entitic mass] 36.2 pg 27.0-32.0 [facility] Nucleated RBC/100 WBC (Bld) [Ratio] 0 % 0-5 [facility] Laboratory - Hematology and Cell countson 05-16-2023 HbA1c (Bld) [Mass fraction] 7.2 % 4.2-6.3 [facility] MCHC Auto (RBC) [Mass/Vol]Or dered By: Riaz Garrison on 05-16-2023 MCHC (RBC) [Mass/Vol] 37.3 g/dL 32-36 [facility] No Panel InformationOrdered By: Marguerite Jennings on 05-16-2023 Estimated GFR (MDRD) Amer 43 mL/min >60 [facility] Comment on above: GFR Calc Estimated GFR (MDRD) Non-Af Amer 35 mL/min >60 [facility] Comment on above: Non- GFR Calc 35 mL/min >60 [facility] 43 mL/min >60 [facility] 19.7 RATIO 10-20 [facility] 25.0 mmol/L 21.0-32.0 [facility] No Panel InformationOrdered By: Riaz Garrison on 05-16-2023 Urine Microalbumin/Creatinine Ratio 111.7 mg/g CRE <30 [facility] 36.2 pg 27.0-32.0 [facility] 14.1 % 11.6-14.6 [facility] 46.7 fl 35.1-43.9 [facility] 0.400 % 0.0-0.9 [facility] 0 % 0-5 [facility] 111.7 mg/g CRE <30 [facility] No Panel Informationon 05-16 7.2 % 4.2-6.3 [facility] Platelets bldOrdered By: Eduin Garrison on 05-16-2023 Platelets (Bld) [#/Vol] 285 10*3/uL 150-450 [facility] Serum or plasma calcium harley urement (mass/volume)Ordered By: Marguerite Jennings on 05-16-2023 Calcium [Mass/Vol] 9.0 mg/dL 8.5-10.1 [facility] Comment on above: Slight Lipemia, Resu lt may be falsely increased. Serum or plasma creatinine m easurement (mass/volume)Ordered By: Marguerite Jennings on 05-16-2023 Creatinine [Mass/Vol] 1.93 mg/dL 0.70-1.30 [facility] Comment on above: Slight Lipemia, Resu lt may be falsely increased.The validity of the calculated GFR & GFRAA in patients over 70 years has not been determined. Clinical correlation is essential. Serum or plasma urea nitroge n measurement (mass/volume)Ordered By: Marguerite Jennings on 05-16-2023 Urea nitrogen [Mass/Vol] 38 mg/dL 7-18 [facility] Comment on above: Slight Lipemia, Resu lt may be falsely increased. Thin prep Papanicolaou smear with manual screeningOrdered By: Marguerite Jennings on 05-16-2023 Thin prep Papanicolaou smear with manual screening 8 5-15 [facility] Thin prep Papanicolaou smear with manual screeningOrdered By: Riaz Garrison on 05-16-2023 Thin prep Papanicolaou smear with manual screening 44.9 mg/L NO RANGE EST. [facility] Urine creatinine measurement (mass/volume)Ordered By: Riaz Garrison on 05-16-2023 Creatinine (U) [Mass/Vol] 40.20 mg/dL NO RANGE EST. [facility] Absolute lymphocyte countOrd ered By: Marguerite Jennings on 05-06-2023 Lymphocytes Auto (Unsp spec) [#/Vol] 2.05 10*3/uL 0.83-4.51 [facility] Basophil percentageOrdered B y: Marguerite Jennings on 05-06-2023 Basophil percentage 110 mg/dL 74-106 [facility] Basophil percentage 7.5 g/dL 6.4-8.2 [facility] Basophil percentage 0.30 mg/dL 0.20-1.00 [facility] Basophil percentage 122 mg/dL <200 [facility] Basophil percentage 166 mg/dL <199 [facility] Basophil percentage 133 mmol/L 136-145 [facility] Basophil percentage 5.2 mmol/L 3.5-5.1 [facility] Basophil percentage 102 mmol/L 98-107 [facility] Basophils (Bld) [#/Vol] 7.3 10*3/uL 4.4-11.0 [facility] Basophils (Bld) [#/Vol] 4.0 10*3/uL 2.0-7.7 [facility] Basophils/100 WBC (Bld) 0.5 % 0-1 [facility] Basophils/100 WBC (Bld) 55.4 % 47-70 [facility] Basophils/100 WBC (Bld) 3.7 % 0-5 [facility] Bilirubin [Mass/Vol] 0.30 mg/dL 0.20-1.00 [facility] Comment on above: For patients on eltr ombopag therapy, use of Dimension [place] TBIL is not recommended. Chloride [Moles/Vol] 102 mmol/L 98-107 [facility] Cholesterol [Mass/Vol] 122 mg/dL <200 [facility] Comment on above: <200 mg/dL Desirable 200-240 mg/dL Borderline >240 mg/dL High Risk Eosinophils/100 WBC (Bld) 3.7 % 0-5 [facility] Glucose [Mass/Vol] 110 mg/dL 74-106 [facility] Comment on above: Fasting Glucose resu lt from 100 to 125 mg/dL suggests IMPAIRED HOMEOSTASIS per A.D.A. criteria. Neutrophils (Bld) [#/Vol] 4.0 10*3/uL 2.0-7.7 [facility] Neutrophils/100 WBC (Bld) 55.4 % 47-70 [facility] Potassium [Moles/Vol] 5.2 mmol/L 3.5-5.1 [facility] Protein [Mass/Vol] 7.5 g/dL 6.4-8.2 [facility] Sodium [Moles/Vol] 133 mmol/L 136-145 [facility] Triglyceride [Mass/Vol] 166 mg/dL <199 [facility] Comment on above: The drugs N-Acetylcy steine and Metamizole may falsely depress this assay.Serum Triglycerides Reference Interval Normal <150 mg/dL Borderline high 150 - 199 mg/dL High 200 - 499 mg/dL Very High > or = 500 mg/dL WBC (Bld) [#/Vol] 7.3 10*3/uL 4.4-11.0 [facility] Blood erythrocytes count (nu mber/volume)Ordered By: Marguerite Jennings on 05-06-2023 RBC (Bld) [#/Vol] 3.03 10*6/uL 4.6-6.2 [facility] Blood hemoglobin measurement (mass/volume)Ordered By: Marguerite Jennings on 05-06-2023 Hemoglobin (Bld) [Mass/Vol] 10.8 g/dL 13.0-16.5 [facility] Blood lymphocytes/100 leukoc ytesOrdered By: Marguerite Jennings on 05-06-2023 Lymphocytes/100 WBC (Bld) 28.2 % 19-41 [facility] Blood monocytes/100 leukocyt esOrdered By: Marguerite Jennings on 05-06-2023 Monocytes/100 WBC (Bld) 11.7 % 0-10 [facility] Blood platelet mean volumeOr dered By: Marguerite Jennings on 05-06-2023 Platelet mean volume (Bld) [Entitic vol] 10.1 fL 6.2-12.0 [facility] Determination of erythrocyte mean corpuscular volume (MCV)Ordered By: Marguerite Jennings on 05-06-2023 MCV (RBC) [Entitic vol] 96.0 fL 80-94 [facility] Direct bilirubinOrdered By: Marguerite Jennings on 05-06-2023 Bilirubin.direct [Mass/Vol] 0.07 mg/dL 0.00-0.30 [facility] Hematocrit Auto (Bld) [Volum e fraction]Ordered By: Marguerite Jennings on 05-06-2023 Hematocrit (Bld) [Volume fraction] 29.1 % 40-54 [facility] Laboratory - Chemistry and C hemistry - challengeOrdered By: Marguerite Jennings on 05-06-2023 ALP [Catalytic activity/Vol] 73 U/L 45-117 [facility] ALT [Catalytic activity/Vol] 19 U/L 16-61 [facility] CO2 [Moles/Vol] 28.0 mmol/L 21.0-32.0 [facility] Globulin (S) [Mass/Vol] 4.0 g/dL 2.2-4.2 [facility] Natriuretic peptide B (Bld) [Mass/Vol] 148.0 pg/mL 0-100 [facility] Urea nitrogen/Creatinine [Mass ratio] 18.4 mg/mg 10-20 [facility] Laboratory - Hematology and Cell countsOrdered By: Marguerite Jennings on 05-06-2023 Erythrocyte distribution width (RBC) [Entitic vol] 45.8 fL 35.1-43.9 [facility] Erythrocyte distribution width (RBC) [Ratio] 13.6 % 11.6-14.6 [facility] Immature granulocytes/100 WBC (Bld) 0.500 % 0.0-0.9 [facility] Comment on above: IG% - Immature Granu locytes (promyelocytes, myelocytes and metamyelocytes) > 1% indicates that a LEFT SHIFT is Present. MCH (RBC) [Entitic mass] 35.6 pg 27.0-32.0 [facility] Nucleated RBC/100 WBC (Bld) [Ratio] 0 % 0-5 [facility] MCHC Auto (RBC) [Mass/Vol]Or dered By: Marguerite Jennings on 05-06-2023 MCHC (RBC) [Mass/Vol] 37.1 g/dL 32-36 [facility] No Panel InformationOrdered By: Marguerite Jennings on 05-06-2023 Estimated GFR (MDRD) Amer 34 mL/min >60 [facility] Comment on above: GFR Calc Estimated GFR (MDRD) Non-Af Amer 28 mL/min >60 [facility] Comment on above: Non- GFR Calc Thyroid Stimulating Hormone (TSH) 2.63 uIU/mL 0.358-3.74 [facility] 35.6 pg 27.0-32.0 [facility] 13.6 % 11.6-14.6 [facility] 45.8 fl 35.1-43.9 [facility] 0.500 % 0.0-0.9 [facility] 0 % 0-5 [facility] 28 mL/min >60 [facility] 34 mL/min >60 [facility] 18.4 RATIO 10-20 [facility] 4.0 g/dL 2.2-4.2 [facility] 73 U/L 45-117 [facility] 19 U/L 16-61 [facility] 28.0 mmol/L 21.0-32.0 [facility] 2.63 uIU/mL 0.358-3.74 [facility] 148.0 pg/mL 0-100 [facility] Platelets bldOrdered By: Allen Jennings on 05-06-2023 Platelets (Bld) [#/Vol] 311 10*3/uL 150-450 [facility] Serum or plasma albumin harley urement (mass/volume)Ordered By: Marguerite Jennings on 05-06-2023 Albumin [Mass/Vol] 3.5 g/dL 3.2-5.0 [facility] Serum or plasma calcium harley urement (mass/volume)Ordered By: Marguerite Jennings on 05-06-2023 Calcium [Mass/Vol] 9.4 mg/dL 8.5-10.1 [facility] Serum or plasma cholesterol in HDL measurement (mass/volume)Ordered By: Marguerite Jennings on 05-06-2023 Cholesterol in HDL [Mass/Vol] 31 mg/dL >40 [facility] Comment on above: The drugs N-Acetylcy steine and Metamizole may falsely depress this assay. Reference Range HDL <40 mg/dL Low HDL Cholesterol HDL >or= 60 mg/dL High HDL Cholesterol Serum or plasma cholesterol in VLDL measurement (mass/volume)Ordered By: Marguerite Jennings on 05-06-2023 Cholesterol in VLDL [Mass/Vol] 33 mg/dL 5-40 [facility] Serum or plasma creatinine m easurement (mass/volume)Ordered By: Marguerite Jennings on 05-06-2023 Creatinine [Mass/Vol] 2.34 mg/dL 0.70-1.30 [facility] Comment on above: The validity of the calculated GFR & GFRAA in patients over 70 years has not been determined. Clinical correlation is essential. Serum or plasma low density lipoprotein (LDL) cholesterol measurement (mass/volume)Ordered By: Marguerite Jennings on 05-06-2023 Cholesterol in LDL [Mass/Vol] 58 mg/dL 0-130 [facility] Serum or plasma urea nitroge n measurement (mass/volume)Ordered By: Marguerite Jennings on 05-06-2023 Urea nitrogen [Mass/Vol] 43 mg/dL 7-18 [facility] Thin prep Papanicolaou smear with manual screeningOrdered By: Marguerite Jennings on 05-06-2023 Thin prep Papanicolaou smear with manual screening 17 U/L 15-37 [facility] Thin prep Papanicolaou smear with manual screening 3 5-15 [facility] Laboratory - Hematology and Cell countson 09-19-2022 HbA1c (Bld) [Mass fraction] 6.9 % 4.2-6.3 [facility] Absolute lymphocyte counton 08-03-2022 Lymphocytes Auto (Unsp spec) [#/Vol] 2.56 10*3/uL 0.83-4.51 [facility] Work Phone: Basophil percentageon 2021 Basophils (Bld) [#/Vol] 9.2 10*3/uL 4.4-11.0 [facility] Work Phone: Basophils (Bld) [#/Vol] 5.6 10*3/uL 2.0-7.7 [facility] Work Phone: Basophils/100 WBC (Bld) 60.4 % 47-70 [facility] Work Phone: Basophils/100 WBC (Bld) 2.2 % 0-5 [facility] Work Phone: Basophils/100 WBC (Bld) 0.5 % 0-1 [facility] Work Phone: Blood erythrocytes count (nu mber/volume)on 08-03-2022 RBC (Bld) [#/Vol] 4.08 10*6/uL 4.6-6.2 [facility] Work Phone: Blood hemoglobin measurement (mass/volume)on 08-03-2022 Hemoglobin (Bld) [Mass/Vol] 11.6 g/dL 13.0-16.5 [facility] Work Phone: Blood lymphocytes/100 leukoc yteson 08-03-2022 Lymphocytes/100 WBC (Bld) 27.7 % 19-41 [facility] Work Phone: Blood monocytes/100 leukocyt eson 08-03-2022 Monocytes/100 WBC (Bld) 8.7 % 0-10 [facility] Work Phone: Blood platelet mean volumeon 08-03-2022 Platelet mean volume (Bld) [Entitic vol] 11.4 fL 6.2-12.0 [facility] Work Phone: Determination of erythrocyte mean corpuscular volume (MCV)on 08-03-2022 MCV (RBC) [Entitic vol] 90.0 fL 80-94 [facility] Work Phone: Hematocrit Auto (Bld) [Volum e fraction]on 08-03-2022 Hematocrit (Bld) [Volume fraction] 36.7 % 40-54 [facility] Work Phone: MCHC Auto (RBC) [Mass/Vol]on 08-03-2022 MCHC (RBC) [Mass/Vol] 31.6 g/dL 32-36 [facility]: No Panel Informationon 08-03 28.4 pg 27.0-32.0 [facility] Work Phone: 16.8 % 11.6-14.6 [facility] Work Phone: 55.3 fl 35.1-43.9 [facility] Work Phone: [phone] 0.500 % 0.0-0.9 [facility] Work Phone: 0 % 0-5 [facility] Work Phone: [phone] 83.7 ng/mL [facility] Work Phone: [phone] Platelets bldon 08-03-2022 Platelets (Bld) [#/Vol] 223 10*3/uL 150-450 [facility] Work Phone: [phone] Basophil percentageon 2021 Basophil percentage 102 mg/dL 74-106 [facility] Work Phone: [phone] Basophil percentage 139 mmol/L 136-145 [facility] Work Phone: [phone] Basophil percentage 4.2 mmol/L 3.5-5.1 [facility] Work Phone: [phone] Basophil percentage 103 mmol/L 98-107 [facility] Work Phone: [phone] No Panel Informationon 07-04 48 mL/min >60 [facility] Work Phone: [phone] 58 mL/min >60 [facility] Work Phone: [phone] 20.1 RATIO 10-20 [facility] Work Phone: 25.0 mmol/L 21.0-32.0 [facility] Work Phone: [phone] Serum or plasma calcium harley urement (mass/volume)on 07-04-2022 Calcium [Mass/Vol] 9.3 mg/dL 8.5-10.1 [facility] Work Phone: Serum or plasma creatinine m easurement (mass/volume)on 07-04-2022 Creatinine [Mass/Vol] 1.49 mg/dL 0.70-1.30 [facility] Work Phone: Serum or plasma urea nitroge n measurement (mass/volume)on 07-04-2022 Urea nitrogen [Mass/Vol] 30 mg/dL 7-18 [facility] Work Phone: Thin prep Papanicolaou smear with manual screeningon 07-04-2022 Thin prep Papanicolaou smear with manual screening 11 5-15 [facility] Work Phone: Absolute lymphocyte counton 06-19-2022 Lymphocytes Auto (Unsp spec) [#/Vol] 0.97 10*3/uL 0.83-4.51 [facility] Work Phone: Basophil percentageon 2021 Basophil percentage 172 mg/dL 74-106 [facility] Work Phone: Basophil percentage 143 mmol/L 136-145 [facility] Work Phone: Basophil percentage 4.1 mmol/L 3.5-5.1 [facility] Work Phone: [phone] Basophil percentage 109 mmol/L 98-107 [facility] Work Phone: Basophils (Bld) [#/Vol] 13.7 10*3/uL 4.4-11.0 [facility] Work Phone: [phone] Basophils (Bld) [#/Vol] 11.9 10*3/uL 2.0-7.7 [facility] Work Phone: [phone] Basophils/100 WBC (Bld) 86.7 % 47-70 [facility] Work Phone: [phone] Basophils/100 WBC (Bld) 0.1 % 0-1 [facility] Work Phone: Blood erythrocytes count (nu mber/volume)on 06-19-2022 RBC (Bld) [#/Vol] 3.13 10*6/uL 4.6-6.2 [facility] Work Phone: Blood hemoglobin measurement (mass/volume)on 06-19-2022 Hemoglobin (Bld) [Mass/Vol] 9.9 g/dL 13.0-16.5 [facility] Work Phone: [phone] Blood lymphocytes/100 leukoc yteson 06-19-2022 Lymphocytes/100 WBC (Bld) 7.1 % 19-41 [facility] Work Phone: Blood monocytes/100 leukocyt eson 06-19-2022 Monocytes/100 WBC (Bld) 5.0 % 0-10 [facility] Work Phone: Blood platelet adequacy dete ction by light microscopyon 06-19-2022 Platelets LM Ql (Bld) ADEQUATE ADEQ [facility] Work Phone: Blood platelet mean volumeon 06-19-2022 Platelet mean volume (Bld) [Entitic vol] 10.7 fL 6.2-12.0 [facility] Work Phone: Determination of erythrocyte mean corpuscular volume (MCV)on 06-19-2022 MCV (RBC) [Entitic vol] 95.8 fL 80-94 [facility] Work Phone: Hematocrit Auto (Bld) [Volum e fraction]on 06-19-2022 Hematocrit (Bld) [Volume fraction] 30.0 % 40-54 [facility] Work Phone: MCHC Auto (RBC) [Mass/Vol]on 06-19-2022 MCHC (RBC) [Mass/Vol] 33.0 g/dL 32-36 [facility] Work Phone: No Panel Informationon 06-19 31.6 pg 27.0-32.0 [facility] Work Phone: 20.8 % 11.6-14.6 [facility] Work Phone: 59.5 fl 35.1-43.9 [facility] Work Phone: 1.000 % 0.0-0.9 [facility] Work Phone: 0 % 0-5 [facility] Work Phone: 1+ [facility] Work Phone: [phone] 55 mL/min >60 [facility] Work Phone: 67 mL/min >60 [facility] Work Phone: 26.7 RATIO 10-20 [facility] Work Phone: 2.0 mg/dL 1.6-2.6 [facility] Work Phone: 28.0 mmol/L 21.0-32.0 [facility] Work Phone: 885.4 pg/mL 0-100 [facility] Work Phone: Platelets bldon 06-19-2022 Platelets (Bld) [#/Vol] 315 10*3/uL 150-450 [facility] Work Phone: Serum or plasma calcium harley urement (mass/volume)on 06-19-2022 Calcium [Mass/Vol] 9.7 mg/dL 8.5-10.1 [facility] Work Phone: Serum or plasma creatinine m easurement (mass/volume)on 06-19-2022 Creatinine [Mass/Vol] 1.31 mg/dL 0.70-1.30 [facility] Work Phone: Serum or plasma urea nitroge n measurement (mass/volume)on 06-19-2022 Urea nitrogen [Mass/Vol] 35 mg/dL 7-18 [facility] Work Phone: Thin prep Papanicolaou smear with manual screeningon 06-19-2022 Thin prep Papanicolaou smear with manual screening 6 5-15 [facility] Work Phone: Absolute lymphocyte counton 06-14-2022 Lymphocytes Auto (Unsp spec) [#/Vol] 1.64 10*3/uL 0.83-4.51 [facility] Work Phone: Basophil percentageon 2021 Basophils (Bld) [#/Vol] 10.1 10*3/uL 4.4-11.0 [facility] Work Phone: Basophils (Bld) [#/Vol] 7.7 10*3/uL 2.0-7.7 [facility] Work Phone: Basophils/100 WBC (Bld) 76.4 % 47-70 [facility] Work Phone: [phone] Basophils/100 WBC (Bld) 0.5 % 0-5 [facility] Work Phone: Basophils/100 WBC (Bld) 0.1 % 0-1 [facility] Work Phone: Blood erythrocytes count (nu mber/volume)on 06-14-2022 RBC (Bld) [#/Vol] 3.22 10*6/uL 4.6-6.2 [facility]: Blood hemoglobin measurement (mass/volume)on 06-14-2022 Hemoglobin (Bld) [Mass/Vol] 9.4 g/dL 13.0-16.5 [facility] Work Phone: Blood lymphocytes/100 leukoc yteson 06-14-2022 Lymphocytes/100 WBC (Bld) 16.2 % 19-41 [facility] Work Phone: Blood monocytes/100 leukocyt eson 06-14-2022 Monocytes/100 WBC (Bld) 5.3 % 0-10 [facility] Work Phone: Blood platelet mean volumeon 06-14-2022 Platelet mean volume (Bld) [Entitic vol] 10.9 fL 6.2-12.0 [facility] Work Phone: Determination of erythrocyte mean corpuscular volume (MCV)on 06-14-2022 MCV (RBC) [Entitic vol] 91.6 fL 80-94 [facility] Work Phone: Glucose Glucometer (BldC) [M ass/Vol]on 06-14-2022 Glucose [Mass/Vol] 73 mg/dL 74-106 [facility] Work Phone: Hematocrit Auto (Bld) [Volum e fraction]on 06-14-2022 Hematocrit (Bld) [Volume fraction] 29.5 % 40-54 [facility] Work Phone: [phone] MCHC Auto (RBC) [Mass/Vol]on 06-14-2022 MCHC (RBC) [Mass/Vol] 31.9 g/dL 32-36 [facility] Work Phone: No Panel Informationon 06-14 29.2 pg 27.0-32.0 [facility] Work Phone: 16.2 % 11.6-14.6 [facility] Work Phone: [phone] 49.2 fl 35.1-43.9 [facility] Work Phone: 1.500 % 0.0-0.9 [facility] Work Phone: 0.2 % 0-5 [facility] Work Phone: Platelets bldon 06-14-2022 Platelets (Bld) [#/Vol] 359 10*3/uL 150-450 [facility] Work Phone: Basophil percentageon 2021 Basophil percentage 228 mg/dL 74-106 [facility] Work Phone: Basophil percentage 133 mmol/L 136-145 [facility] Work Phone: [phone] Basophil percentage 4.0 mmol/L 3.5-5.1 [facility] Work Phone: [phone] Basophil percentage 98 mmol/L 98-107 [facility] Work Phone: No Panel Informationon 06-13 50 mL/min >60 [facility] Work Phone: 61 mL/min >60 [facility] Work Phone: 39.70 ml/min [facility] Work Phone: 24.5 RATIO 10-20 [facility] Work Phone: 27.0 mmol/L 21.0-32.0 [facility] Work Phone: Serum or plasma calcium harley urement (mass/volume)on 06-13-2022 Calcium [Mass/Vol] 9.1 mg/dL 8.5-10.1 [facility] Work Phone: Serum or plasma creatinine m easurement (mass/volume)on 06-13-2022 Creatinine [Mass/Vol] 1.43 mg/dL 0.70-1.30 [facility] Work Phone: Serum or plasma urea nitroge n measurement (mass/volume)on 06-13-2022 Urea nitrogen [Mass/Vol] 35 mg/dL 7-18 [facility] Work Phone: Thin prep Papanicolaou smear with manual screeningon 06-13-2022 Thin prep Papanicolaou smear with manual screening 8 5-15 [facility] Work Phone: Assessment of wrist artery p atency prior to arterial punctureon 06-09-2022 Arterial patency Wrist artery --pre arterial puncture Positive [facility] Work Phone: Base excesson 06-09-2022 Base excess Calc (BldV) [Moles/Vol] -2 mmol/L -2-2 [facility] Work Phone: Basophil percentageon 2021 Basophil percentage 22.7 mmol/L 22-26 [facility] Work Phone: Basophils/100 WBC (Bld) 98 % 95-99 [facility] Work Phone: CO2 (BldA) [Partial pressure ]on 06-09-2022 CO2 (Bld) [Partial pressure] 35.2 mm[Hg] 35-45 [facility] Work Phone: No Panel Informationon 06-09 ART [facility] Work Phone: R Brach [facility] Work Phone: [phone] BiPAP [facility] Work Phone: [phone] 14 [facility] Work Phone: 30 [facility] Work Phone: 8 [facility] Work Phone: [phone] 24 mmol/L [facility] Work Phone: [phone] Oxygen (BldA) [Partial press ure]on 06-09-2022 Oxygen (Bld) [Partial pressure] 96 mmHG 75-100 [facility] Work Phone: Whole blood hemoglobin A1c/t otal hemoglobin ratio (mass fraction)on 06-09-2022 HbA1c (Bld) [Mass fraction] 7.1 % 3.8-5.6 [facility] Work Phone: pH measurementon 06-09-2022 pH (Unsp spec) 7.42 [pH] 7.35-7.45 [facility] Work Phone: Absolute lymphocyte counton 06-08-2022 Lymphocytes Auto (Unsp spec) [#/Vol] 2.64 10*3/uL 0.83-4.51 [facility] Work Phone: Basophil percentageon 2021 Basophil percentage 174 mg/dL 74-106 [facility] Work Phone: Basophil percentage 138 mmol/L 136-145 [facility] Work Phone: Basophil percentage 4.1 mmol/L 3.5-5.1 [facility] Work Phone: [phone] Basophil percentage 104 mmol/L 98-107 [facility] Work Phone: Basophils (Bld) [#/Vol] 11.1 10*3/uL 4.4-11.0 [facility] Work Phone: [phone] Basophils (Bld) [#/Vol] 7.1 10*3/uL 2.0-7.7 [facility] Work Phone: Basophils/100 WBC (Bld) 64.1 % 47-70 [facility] Work Phone: Basophils/100 WBC (Bld) 1.8 % 0-5 [facility] Work Phone: Basophils/100 WBC (Bld) 0.4 % 0-1 [facility] Work Phone: Blood erythrocytes count (nu mber/volume)on 06-08-2022 RBC (Bld) [#/Vol] 3.48 10*6/uL 4.6-6.2 [facility] Work Phone: Blood hemoglobin measurement (mass/volume)on 06-08-2022 Hemoglobin (Bld) [Mass/Vol] 9.3 g/dL 13.0-16.5 [facility] Work Phone: Blood lymphocytes/100 leukoc yteson 06-08-2022 Lymphocytes/100 WBC (Bld) 23.8 % 19-41 [facility] Work Phone: Blood monocytes/100 leukocyt eson 06-08-2022 Monocytes/100 WBC (Bld) 8.5 % 0-10 [facility] Work Phone: Blood platelet mean volumeon 06-08-2022 Platelet mean volume (Bld) [Entitic vol] 11.4 fL 6.2-12.0 [facility] Work Phone: Determination of erythrocyte mean corpuscular volume (MCV)on 06-08-2022 MCV (RBC) [Entitic vol] 88.5 fL 80-94 [facility] Work Phone: Hematocrit Auto (Bld) [Volum e fraction]on 06-08-2022 Hematocrit (Bld) [Volume fraction] 30.8 % 40-54 [facility] Work Phone: MCHC Auto (RBC) [Mass/Vol]on 06-08-2022 MCHC (RBC) [Mass/Vol] 30.2 g/dL 32-36 [facility] Work Phone: No Panel Informationon 06-08 3.35 FEU/ug/m 0.27-0.49 [facility] Work Phone: 26.7 pg 27.0-32.0 [facility] Work Phone: 15.1 % 11.6-14.6 [facility] Work Phone: 46.4 fl 35.1-43.9 [facility] Work Phone: 1.400 % 0.0-0.9 [facility] Work Phone: 0.2 % 0-5 [facility] Work Phone: 46 mL/min >60 [facility] Work Phone: 55 mL/min >60 [facility] Work Phone: 36.63 ml/min [facility] Work Phone: 11.0 RATIO 10-20 [facility] Work Phone: 25.0 mmol/L 21.0-32.0 [facility] Work Phone: Platelets bldon 06-08-2022 Platelets (Bld) [#/Vol] 404 10*3/uL 150-450 [facility] Work Phone: Serum or plasma calcium harley urement (mass/volume)on 06-08-2022 Calcium [Mass/Vol] 9.4 mg/dL 8.5-10.1 [facility] Work Phone: Serum or plasma creatinine m easurement (mass/volume)on 06-08-2022 Creatinine [Mass/Vol] 1.55 mg/dL 0.70-1.30 [facility] Work Phone: Serum or plasma urea nitroge n measurement (mass/volume)on 06-08-2022 Urea nitrogen [Mass/Vol] 17 mg/dL 7-18 [facility] Work Phone: Thin prep Papanicolaou smear with manual screeningon 06-08-2022 Thin prep Papanicolaou smear with manual screening 9 5-15 [facility] Work Phone: Absolute lymphocyte counton 06-06-2022 Lymphocytes Auto (Unsp spec) [#/Vol] 1.91 10*3/uL 0.83-4.51 [facility] Work Phone: Basophil percentageon 2021 Basophil percentage 142 mg/dL 74-106 [facility] Work Phone: Basophil percentage 138 mmol/L 136-145 [facility] Work Phone: Basophil percentage 3.7 mmol/L 3.5-5.1 [facility] Work Phone: Basophil percentage 103 mmol/L 98-107 [facility] Work Phone: Basophils (Bld) [#/Vol] 9.4 10*3/uL 4.4-11.0 [facility] Work Phone: Basophils (Bld) [#/Vol] 6.4 10*3/uL 2.0-7.7 [facility] Work Phone: Basophils/100 WBC (Bld) 68.1 % 47-70 [facility] Work Phone: Basophils/100 WBC (Bld) 1.8 % 0-5 [facility] Work Phone: Basophils/100 WBC (Bld) 0.4 % 0-1 [facility] Work Phone: Chloride [Moles/Vol] 103 mmol/L 98-[address] [facility] [facility]: Eosinophils/100 WBC (Bld) 1.8 % 0-5 [facility] Work Phone: Glucose [Mass/Vol] 142 mg/dL 74-106 [facility] Work Phone: Comment on above: Fasting Glucose resu lt greater than or equal to 126 mg/dL suggests DIABETES MELLITUS per A.D.A. criteria. Neutrophils (Bld) [#/Vol] 6.4 10*3/uL 2.0-7.7 [facility] Work Phone: Neutrophils/100 WBC (Bld) 68.1 % 47-70 [facility] Work Phone: Potassium [Moles/Vol] 3.7 mmol/L 3.5-5.1 [facility] Work Phone: Sodium [Moles/Vol] 138 mmol/L 136-145 [facility] Work Phone: WBC (Bld) [#/Vol] 9.4 10*3/uL 4.4-11.0 [facility] Work Phone: Blood erythrocytes count (nu mber/volume)on 06-06-2022 RBC (Bld) [#/Vol] 2.78 10*6/uL 4.6-6.2 [facility] Work Phone: Blood hemoglobin measurement (mass/volume)on 06-06-2022 Hemoglobin (Bld) [Mass/Vol] 8.1 g/dL 13.0-16.5 [facility] Work Phone: Blood lymphocytes/100 leukoc yteson 06-06-2022 Lymphocytes/100 WBC (Bld) 20.4 % 19-41 [facility] Work Phone: Blood monocytes/100 leukocyt eson 06-06-2022 Monocytes/100 WBC (Bld) 8.8 % 0-10 [facility] Work Phone: Blood platelet mean volumeon 06-06-2022 Platelet mean volume (Bld) [Entitic vol] 11.3 fL 6.2-12.0 [facility] Work Phone: Determination of erythrocyte mean corpuscular volume (MCV)on 06-06-2022 MCV (RBC) [Entitic vol] 90.6 fL 80-94 [facility] Work Phone: Glucose Glucometer (BldC) [M ass/Vol]on 06-06-2022 Glucose [Mass/Vol] 166 mg/dL 74-106 [facility] Work Phone: Comment on above: MANAGEMENT OF PATIEN T CARE PER NURSING PROTOCOL Hematocrit Auto (Bld) [Volum e fraction]on 06-06-2022 Hematocrit (Bld) [Volume fraction] 25.2 % 40-54 [facility] Work Phone: Laboratory - Chemistry and C hemistry - challengeon 06-06-2022 CO2 [Moles/Vol] 26.0 mmol/L 21.0-32.0 [facility] Work Phone: Urea nitrogen/Creatinine [Mass ratio] 14.8 mg/mg 10-20 [facility] Work Phone: Laboratory - Hematology and Cell countson 06-06-2022 Erythrocyte distribution width (RBC) [Entitic vol] 44.7 fL 35.1-43.9 [facility] Work Phone: Erythrocyte distribution width (RBC) [Ratio] 14.2 % 11.6-14.6 [facility] Work Phone: Immature granulocytes/100 WBC (Bld) 0.500 % 0.0-0.9 [facility] Work Phone: Comment on above: IG% - Immature Granu locytes (promyelocytes, myelocytes and metamyelocytes) > 1% indicates that a LEFT SHIFT is Present. MCH (RBC) [Entitic mass] 29.1 pg 27.0-32.0 [facility] Work Phone: Nucleated RBC/100 WBC (Bld) [Ratio] 0 % 0-5 [facility] Work Phone: MCHC Auto (RBC) [Mass/Vol]on 06-06-2022 MCHC (RBC) [Mass/Vol] 32.1 g/dL 32-36 [facility] Work Phone: Comment on above: Delta: 34.3 on 06/05 No Panel Informationon 06-06 Estimated Creatinine Clearance Calc 46.54 ml/min [facility] Work Phone: Estimated GFR (MDRD) Amer 73 mL/min >60 [facility] Work Phone: Comment on above: GFR Calc Estimated GFR (MDRD) Non-Af Amer 60 mL/min >60 [facility] Work Phone: Comment on above: Non- GFR Calc 29.1 pg 27.0-32.0 [facility] Work Phone: 14.2 % 11.6-14.6 [facility] Work Phone: 44.7 fl 35.1-43.9 [facility] Work Phone: 0.500 % 0.0-0.9 [facility] Work Phone: 0 % 0-5 [facility] Work Phone: 60 mL/min >60 [facility] Work Phone: 73 mL/min >60 [facility] Work Phone: 46.54 ml/min [facility] Work Phone: 14.8 RATIO 10-20 [facility] Work Phone: 26.0 mmol/L 21.0-32.0 [facility] Work Phone: Platelets bldon 06-06-2022 Platelets (Bld) [#/Vol] 297 10*3/uL 150-450 [facility] Work Phone: Serum or plasma calcium harley urement (mass/volume)on 06-06-2022 Calcium [Mass/Vol] 8.9 mg/dL 8.5-10.1 [facility] Work Phone: Serum or plasma creatinine m easurement (mass/volume)on 06-06-2022 Creatinine [Mass/Vol] 1.22 mg/dL 0.70-1.30 [facility] Work Phone: Comment on above: The validity of the calculated GFR & GFRAA in patients over 70 years has not been determined. Clinical correlation is essential. Serum or plasma urea nitroge n measurement (mass/volume)on 06-06-2022 Urea nitrogen [Mass/Vol] 18 mg/dL 7-18 [facility] Work Phone: Thin prep Papanicolaou smear with manual screeningon 06-06-2022 Thin prep Papanicolaou smear with manual screening 9 5-15 [facility] Work Phone: Laboratory - Coagulationon 0 06-04-2022 aPTT Coag (Bld) [Time] 52.4 s 24.1-36.2 [facility] Work Phone: No Panel Informationon 06-04 52.4 Seconds 24.1-36.2 [facility] Work Phone: Basophil percentageon 2021 Basophil percentage 6.7 g/dL 6.4-8.2 [facility] Work Phone: Basophil percentage 0.40 mg/dL 0.20-1.00 [facility] Work Phone: Basophil percentage 105 mg/dL <200 [facility] Work Phone: Basophil percentage 67 mg/dL <199 [facility] Work Phone: Bilirubin [Mass/Vol] 0.40 mg/dL 0.20-1.00 [facility] Work Phone: Comment on above: For patients on eltr ombopag therapy, use of Dimension [place] TBIL is not recommended. Cholesterol [Mass/Vol] 105 mg/dL <200 [facility] Work Phone: Comment on above: <200 mg/dL Desirable 200-240 mg/dL Borderline >240 mg/dL High Risk Protein [Mass/Vol] 6.7 g/dL 6.4-8.2 [facility] Work Phone: Triglyceride [Mass/Vol] 67 mg/dL <199 [facility] Work Phone: Comment on above: The drugs N-Acetylcy steine and Metamizole may falsely depress this assay.Serum Triglycerides Reference Interval Normal <150 mg/dL Borderline high 150 - 199 mg/dL High 200 - 499 mg/dL Very High > or = 500 mg/dL INR in Blood by Coagulation assayon 06-03-2022 INR Coag (Bld) [Relative time] 1.3 {INR} [facility] Work Phone: Iron measurement (mass/mass) on 06-03-2022 Iron (Unsp spec) [Mass/Mass] 14 ug/dL 65-175 [facility] Work Phone: Laboratory - Chemistry and C hemistry - challengeon 06-03-2022 ALP [Catalytic activity/Vol] 52 U/L 45-117 [facility] Work Phone: ALT [Catalytic activity/Vol] 34 U/L 16-61 [facility] Work Phone: Globulin (S) [Mass/Vol] 4.1 g/dL 2.2-4.2 [facility] Work Phone: Cobalamin (Vitamin B12) [Mass/Vol] 233 pg/mL 211-911 [facility] Work Phone: Magnesium [Mass/Vol] 1.4 mg/dL 1.6-2.6 [facility] Work Phone: Laboratory - Coagulationon 0 06-03-2022 aPTT Coag (Bld) [Time] 28.4 s 24.1-36.2 [facility] Work Phone: PT Coag (PPP) [Time] 15.4 s 11.7-14.9 [facility] Work Phone: Laboratory - Microbiology an d Antimicrobial susceptibilityon 06-03-2022 SARS-CoV-2 (COVID-19) RNA GARRETT+probe Ql (Unsp spec) Not detected Not Detect [facility] Work Phone: Comment on above: Normal Reference Ran ge: Not DetectedMethod:(RT-PCR) real-time reverse transcriptase PCRLuminex PATRICK Instrument*The Food and Drug Administration (FDA) has issued an Emergency Use Authorization (EAU) for the PATRICK SARS-CoV-2 Assay for the rapid detection of the virus that causes COVID-19. This test has been validated, but the FDAs independent review of this validation is pending.*Negative results do not preclude infection and should not be used as the sole basis for treatment or patient management. Optimum specimen types and timing for peak viral levels during infections caused by SARS-CoV-2 have not been determined. Collection of multiple specimens from the same patient may be necessary to detect the virus. The possibility of a false negative result should be considered if the patient has clinical presentation or has had recent exposure. No Panel Informationon 06-03 Total Iron Binding Capacity 245 ug/dL 250-450 [facility] Work Phone: Troponin I High Sensitivity 81 pg/mL 3.0-78.0 [facility] Work Phone: Comment on above: Please Note: New Ana t Units and Gender Specific Reference Ranges. For more information see Policy Stat Procedure [place] High Sensitivity Troponin (TNIH) and attachments. 4.1 g/dL 2.2-4.2 [facility] Work Phone: 81 pg/mL 3.0-78.0 [facility] Work Phone: [phone] 52 U/L 45-117 [facility] Work Phone: 34 U/L 16-61 [facility] Work Phone: 245 ug/dL 250-450 [facility] Work Phone: Not detected Not Detect [facility] Work Phone: 15.4 SECONDS 11.7-14.9 [facility] Work Phone: 1.4 mg/dL 1.6-2.6 [facility] Work Phone: 233 pg/mL 211-911 [facility] Work Phone: Troponin I High Sensitivity 43 pg/mL 3.0-78.0 [facility] Work Phone: Comment on above: Please Note: New Ana t Units and Gender Specific Reference Ranges. For more information see Policy Stat Procedure [place] High Sensitivity Troponin (TNIH) and attachments. Serum or plasma albumin harley urement (mass/volume)on 06-03-2022 Albumin [Mass/Vol] 2.6 g/dL 3.2-5.0 [facility] Work Phone: Serum or plasma albumin/glob ulin mass ratioon 06-03-2022 Albumin/Globulin [Mass ratio] 0.6 {ratio} 0.9-2.4 [facility] Work Phone: Serum or plasma cholesterol in HDL measurement (mass/volume)on 06-03-2022 Cholesterol in HDL [Mass/Vol] 30 mg/dL >40 [facility] Work Phone: Comment on above: The drugs N-Acetylcy steine and Metamizole may falsely depress this assay. Reference Range HDL <40 mg/dL Low HDL Cholesterol HDL >or= 60 mg/dL High HDL Cholesterol Serum or plasma cholesterol in VLDL measurement (mass/volume)on 06-03-2022 Cholesterol in VLDL [Mass/Vol] 13 mg/dL 5-40 [facility] Work Phone: Serum or plasma ferritin jaelyn surement (mass/volume)on 06-03-2022 Ferritin [Mass/Vol] 79 ng/mL 26-388 [facility] Work Phone: Serum or plasma folate measu rement (mass/volume)on 06-03-2022 Folate [Mass/Vol] 8.60 ng/mL 3.1-55.4 [facility] Work Phone: Serum or plasma iron saturat ion measurement (mass fraction)on 06-03-2022 Iron saturation [Mass fraction] 5.7 % 15.0-55.0 [facility] Work Phone: Serum or plasma low density lipoprotein (LDL) cholesterol measurement (mass/volume)on 06-03-2022 Cholesterol in LDL [Mass/Vol] 62 mg/dL 0-130 [facility] Work Phone: Serum procalcitonin measurem enton 06-03-2022 Procalcitonin [Mass/Vol] 0.10 ng/mL 0.00-0.09 [facility] Work Phone: Comment on above: A procalcitonin (PCT ) level above 2.0 ng/mL on the first day of ICU admission is associated with a high risk for progression to severe sepsis and/or septic shock. A PCT level below 0.5 ng/mL on the first day of ICU admission is associated with a low risk for progression to severe and/or septic shock. Note: Concentrations <0.5 ng/mL do not exclude an infection on account of localized infections (without systemic signs) which can be associated with such low concentrations, or a systemic infection in its initial stages (<6 hours). Furthermore, increased procalcitonin can occur without infection. PCT concentrations between 0.5 and 2.0 ng/mL should be interpreted taking into account the patient's history. It is recommended to retest PCT within 6-24 hours if any concentrations <2 ng/mL are obtained. Thin prep Papanicolaou smear with manual screeningon 06-03-2022 Thin prep Papanicolaou smear with manual screening 29 U/L 15-37 [facility] Work Phone: Absolute lymphocyte counton 06-02-2022 Lymphocytes Auto (Unsp spec) [#/Vol] 2.12 10*3/uL 0.83-4.51 [facility] Work Phone: Basophil percentageon 2021 Basophils/100 WBC (Bld) 0.2 % 0-1 [facility] Work Phone: Chloride [Moles/Vol] 103 mmol/L 98-107 [facility] Work Phone: Eosinophils/100 WBC (Bld) 2.6 % 0-5 [facility] Work Phone: Glucose [Mass/Vol] 199 mg/dL 74-106 [facility] Work Phone: Comment on above: Fasting Glucose resu lt greater than or equal to 126 mg/dL suggests DIABETES MELLITUS per A.D.A. criteria. Neutrophils (Bld) [#/Vol] 6.2 10*3/uL 2.0-7.7 [facility] Work Phone: [phone] Neutrophils/100 WBC (Bld) 65.7 % 47-70 [facility] Work Phone: [phone] Potassium [Moles/Vol] 3.6 mmol/L 3.5-5.1 [facility] Work Phone: Sodium [Moles/Vol] 135 mmol/L 136-145 [facility] Work Phone: WBC (Bld) [#/Vol] 9.4 10*3/uL 4.4-11.0 [facility] Work Phone: Blood erythrocytes count (nu mber/volume)on 06-02-2022 RBC (Bld) [#/Vol] 3.48 10*6/uL 4.6-6.2 [facility] Blood hemoglobin measurement (mass/volume)on 06-02-2022 Hemoglobin (Bld) [Mass/Vol] 9.2 g/dL 13.0-16.5 [facility] Work Phone: Blood lymphocytes/100 leukoc yteson 06-02-2022 Lymphocytes/100 WBC (Bld) 22.6 % 19-41 [facility] Work Phone: Blood monocytes/100 leukocyt eson 06-02-2022 Monocytes/100 WBC (Bld) 8.4 % 0-10 [facility] Work Phone: Blood platelet mean volumeon 06-02-2022 Platelet mean volume (Bld) [Entitic vol] 11.6 fL 6.2-12.0 [facility] Work Phone: Determination of erythrocyte mean corpuscular volume (MCV)on 06-02-2022 MCV (RBC) [Entitic vol] 86.2 fL 80-94 [facility] Work Phone: Hematocrit Auto (Bld) [Volum e fraction]on 06-02-2022 Hematocrit (Bld) [Volume fraction] 30.0 % 40-54 [facility] Work Phone: Laboratory - Chemistry and C hemistry - challengeon 06-02-2022 CO2 [Moles/Vol] 23.0 mmol/L 21.0-32.0 [facility] Work Phone: Urea nitrogen/Creatinine [Mass ratio] 14.6 mg/mg 10-20 [facility] Work Phone: Laboratory - Hematology and Cell countson 06-02-2022 Erythrocyte distribution width (RBC) [Entitic vol] 45.1 fL 35.1-43.9 [facility] Work Phone: Erythrocyte distribution width (RBC) [Ratio] 14.3 % 11.6-14.6 [facility] Work Phone: Immature granulocytes/100 WBC (Bld) 0.500 % 0.0-0.9 [facility] Work Phone: Comment on above: IG% - Immature Granu locytes (promyelocytes, myelocytes and metamyelocytes) > 1% indicates that a LEFT SHIFT is Present. MCH (RBC) [Entitic mass] 26.4 pg 27.0-32.0 [facility] Work Phone: Nucleated RBC/100 WBC (Bld) [Ratio] 0 % 0-5 [facility] Work Phone: MCHC Auto (RBC) [Mass/Vol]on 06-02-2022 MCHC (RBC) [Mass/Vol] 30.7 g/dL 32-36 [facility] Work Phone: [phone] No Panel Informationon 06-02 Estimated Creatinine Clearance Calc 35.94 ml/min [facility] Work Phone: Estimated GFR (MDRD) Amer 54 mL/min >60 [facility] Work Phone: Comment on above: GFR Calc Estimated GFR (MDRD) Non-Af Amer 45 mL/min >60 [facility] Work Phone: Comment on above: Non- GFR Calc Platelets bldon 06-02-2022 Platelets (Bld) [#/Vol] 302 10*3/uL 150-450 [facility] Work Phone: Serum or plasma calcium harley urement (mass/volume)on 06-02-2022 Calcium [Mass/Vol] 8.9 mg/dL 8.5-10.1 [facility] Work Phone: Serum or plasma creatinine m easurement (mass/volume)on 06-02-2022 Creatinine [Mass/Vol] 1.58 mg/dL 0.70-1.30 [facility] Work Phone: Comment on above: The validity of the calculated GFR & GFRAA in patients over 70 years has not been determined. Clinical correlation is essential. Serum or plasma urea nitroge n measurement (mass/volume)on 06-02-2022 Urea nitrogen [Mass/Vol] 23 mg/dL 7-18 [facility] Work Phone: Thin prep Papanicolaou smear with manual screeningon 06-02-2022 Thin prep Papanicolaou smear with manual screening 9 5-15 [facility] Work Phone: Absolute lymphocyte counton 05-28-2022 Lymphocytes Auto (Unsp spec) [#/Vol] 2.06 10*3/uL 0.83-4.51 [facility] Work Phone: Basophil percentageon 2021 Basophil percentage 25-50 SEEN /hpf 0-5 [facility] Work Phone: Basophil percentage 220 mg/dL 74-106 [facility] Work Phone: Basophil percentage 7.5 g/dL 6.4-8.2 [facility] Work Phone: Basophil percentage 0.40 mg/dL 0.20-1.00 [facility] Work Phone: Basophil percentage 135 mmol/L 136-145 [facility] Work Phone: Basophil percentage 4.1 mmol/L 3.5-5.1 [facility] Work Phone: Basophil percentage 100 mmol/L 98-107 [facility] Work Phone: Basophils (Bld) [#/Vol] 8.8 10*3/uL 4.4-11.0 [facility] Work Phone: Basophils (Bld) [#/Vol] 5.9 10*3/uL 2.0-7.7 [facility] Work Phone: Basophils/100 WBC (Bld) 0.2 % 0-1 [facility] Work Phone: Basophils/100 WBC (Bld) 67.5 % 47-70 [facility] Work Phone: Basophils/100 WBC (Bld) 1.6 % 0-5 [facility] Work Phone: Bilirubin [Mass/Vol] 0.40 mg/dL 0.20-1.00 [facility] Work Phone: Comment on above: For patients on eltr ombopag therapy, use of Dimension [place] TBIL is not recommended. Chloride [Moles/Vol] 100 mmol/L 98-107 [facility] Work Phone: Eosinophils/100 WBC (Bld) 1.6 % 0-5 [facility] Work Phone: Glucose [Mass/Vol] 220 mg/dL 74-106 [facility] Work Phone: Comment on above: Glucose result great er than or equal to 200 mg/dLsuggests DIABETES MELLITUS per A.D.A. criteria. Neutrophils (Bld) [#/Vol] 5.9 10*3/uL 2.0-7.7 [facility] Work Phone: Neutrophils/100 WBC (Bld) 67.5 % 47-70 [facility] Work Phone: [phone] Potassium [Moles/Vol] 4.1 mmol/L 3.5-5.1 [facility] Work Phone: [phone] Protein [Mass/Vol] 7.5 g/dL 6.4-8.2 [facility] Work Phone: Sodium [Moles/Vol] 135 mmol/L 136-145 [facility] Work Phone: WBC (Bld) [#/Vol] 8.8 10*3/uL 4.4-11.0 [facility] Work Phone: Bilirubin Test strip Ql (U)o n 05-28-2022 Bilirubin Ql (U) Negative Negative [facility] Work Phone: Blood erythrocytes count (nu mber/volume)on 05-28-2022 RBC (Bld) [#/Vol] 2.21 10*6/uL 4.6-6.2 [facility] Work Phone: Blood hemoglobin measurement (mass/volume)on 05-28-2022 Hemoglobin (Bld) [Mass/Vol] 10.3 g/dL 13.0-16.5 [facility] Work Phone: Blood lymphocytes/100 leukoc yteson 05-28-2022 Lymphocytes/100 WBC (Bld) 23.4 % 19-41 [facility] Work Phone: Blood monocytes/100 leukocyt eson 05-28-2022 Monocytes/100 WBC (Bld) 6.7 % 0-10 [facility] Work Phone: Blood platelet mean volumeon 05-28-2022 Platelet mean volume (Bld) [Entitic vol] 11.5 fL 6.2-12.0 [facility] Work Phone: Determination of erythrocyte mean corpuscular volume (MCV)on 05-28-2022 MCV (RBC) [Entitic vol] 85.8 fL 80-94 [facility] Work Phone: Direct bilirubinon 2 Bilirubin.direct [Mass/Vol] 0.11 mg/dL 0.00-0.30 [facility] Work Phone: Hematocrit Auto (Bld) [Volum e fraction]on 05-28-2022 Hematocrit (Bld) [Volume fraction] 32.0 % 40-54 [facility] Work Phone: Ketones Test strip Ql (U)on 05-28-2022 Ketones Ql (U) Negative Negative [facility] Work Phone: Laboratory - Chemistry and C hemistry - challengeon 05-28-2022 ALP [Catalytic activity/Vol] 62 U/L 45-117 [facility] Work Phone: ALT [Catalytic activity/Vol] 20 U/L 16-61 [facility] Work Phone: CO2 [Moles/Vol] 28.0 mmol/L 21.0-32.0 [facility] Work Phone: Globulin (S) [Mass/Vol] 4.3 g/dL 2.2-4.2 [facility] Work Phone: Urea nitrogen/Creatinine [Mass ratio] 15.9 mg/mg 10-20 [facility] Work Phone: Laboratory - Hematology and Cell countson 05-28-2022 Erythrocyte distribution width (RBC) [Entitic vol] 43.6 fL 35.1-43.9 [facility] Work Phone: Erythrocyte distribution width (RBC) [Ratio] 14.0 % 11.6-14.6 [facility] Work Phone: Immature granulocytes/100 WBC (Bld) 0.600 % 0.0-0.9 [facility] Work Phone: Comment on above: IG% - Immature Granu locytes (promyelocytes, myelocytes and metamyelocytes) > 1% indicates that a LEFT SHIFT is Present. MCH (RBC) [Entitic mass] 27.6 pg 27.0-32.0 [facility] Work Phone: Nucleated RBC/100 WBC (Bld) [Ratio] 0 % 0-5 [facility] Work Phone: MCHC Auto (RBC) [Mass/Vol]on 05-28-2022 MCHC (RBC) [Mass/Vol] 32.2 g/dL 32-36 [facility] Work Phone: Mucus LM Ql (Urine sed)on Mucus Ql (Urine sed) 0 SEEN /hpf [facility] Work Phone: Nitrite Test strip Ql (U)on 08-22-2022 Nitrite Ql (U) Negative Negative [facility] Work Phone: No Panel Informationon 05-28 Estimated Creatinine Clearance Calc 36.16 ml/min [facility] Work Phone: Estimated GFR (MDRD) Amer 54 mL/min >60 [facility] Work Phone: Comment on above: GFR Calc Estimated GFR (MDRD) Non-Af Amer 45 mL/min >60 [facility] Work Phone: Comment on above: Non- GFR Calc Thyroid Stimulating Hormone (TSH) 1.98 uIU/mL 0.358-3.74 [facility] Work Phone: Troponin I High Sensitivity 32 pg/mL 3.0-78.0 [facility] Work Phone: Comment on above: Please Note: New Ana t Units and Gender Specific Reference Ranges. For more information see Policy Stat Procedure [place] High Sensitivity Troponin (TNIH) and attachments. 27.6 pg 27.0-32.0 [facility] Work Phone: 14.0 % 11.6-14.6 [facility] Work Phone: 43.6 fl 35.1-43.9 [facility] Work Phone: 0.600 % 0.0-0.9 [facility] Work Phone: 0 % 0-5 [facility] Work Phone: [phone] 45 mL/min >60 [facility] Work Phone: 54 mL/min >60 [facility] Work Phone: 36.16 ml/min [facility] Work Phone: 15.9 RATIO 10-20 [facility] Work Phone: 4.3 g/dL 2.2-4.2 [facility] Work Phone: 32 pg/mL 3.0-78.0 [facility] Work Phone: 62 U/L 45-117 [facility] Work Phone: 20 U/L 16-61 [facility] Work Phone: 28.0 mmol/L 21.0-32.0 [facility] Work Phone: 1.98 uIU/mL 0.358-3.74 [facility] Work Phone: Platelets bldon 05-28-2022 Platelets (Bld) [#/Vol] 273 10*3/uL 150-450 [facility] Work Phone: Protein Test strip Ql (U)on 05-28-2022 Protein Ql (U) 500 mg/dl Negative [facility] Work Phone: Serum or plasma albumin harley urement (mass/volume)on 05-28-2022 Albumin [Mass/Vol] 3.2 g/dL 3.2-5.0 [facility] Work Phone: Serum or plasma calcium harley urement (mass/volume)on 05-28-2022 Calcium [Mass/Vol] 9.4 mg/dL 8.5-10.1 [facility] Work Phone: Serum or plasma creatinine m easurement (mass/volume)on 05-28-2022 Creatinine [Mass/Vol] 1.57 mg/dL 0.70-1.30 [facility] Work Phone: Comment on above: The validity of the calculated GFR & GFRAA in patients over 70 years has not been determined. Clinical correlation is essential. Serum or plasma urea nitroge n measurement (mass/volume)on 05-28-2022 Urea nitrogen [Mass/Vol] 25 mg/dL 7-18 [facility] Work Phone: Squamous epithelial cells de tection in urine sediment by light microscopyon 05-28-2022 Epithelial cells.squamous LM Ql (Urine sed) 0-5 SEEN /hpf 0-5 [facility] Work Phone: Thin prep Papanicolaou smear with manual screeningon 05-28-2022 Thin prep Papanicolaou smear with manual screening 21 U/L 15-37 [facility] Work Phone: Thin prep Papanicolaou smear with manual screening 7 5-15 [facility] Work Phone: Urine blood detectionon 05-08 RBC Ql (U) Negative Negative [facility] Work Phone: RBC Ql (U) 0 SEEN /hpf 0-5 [facility] Work Phone: Urine clarityon 05-28-2022 Clarity (U) Sl. Cloudy Clear [facility] Work Phone: Urine color determinationon 05-28-2022 Color (U) Yellow Yellow [facility] Work Phone: Urine glucose detectionon Glucose Ql (U) Normal mg/dl Normal [facility] Work Phone: Urine leukocyte esterase det ection by dipstickon 05-28-2022 Leukocyte esterase Test strip Ql (U) 500 /ul Negative [facility] Work Phone: Urine pHon 05-28-2022 pH (U) 6.0 [pH] 5.0 - 8.0 [facility] Work Phone: Urine sediment bacteria coun t by microscopy (number/high power field)on 05-28-2022 Bacteria LM.HPF (Urine sed) [#/Area] 0 /[HPF] None Seen [facility] Work Phone: Urine specific gravity measu rementon 05-28-2022 Specific gravity (U) [Rel density] 1.015 1.002-1.030 [facility] Work Phone: Urobilinogen Auto test strip Ql (U)on 05-28-2022 Urobilinogen Ql (U) Normal mg/dl Normal [facility] Work Phone: Absolute lymphocyte counton 05-22-2022 Lymphocytes Auto (Unsp spec) [#/Vol] 2.04 10*3/uL 0.83-4.51 [facility] Work Phone: Basophil percentageon 2021 Basophil percentage 142 mg/dL 74-106 [facility] Work Phone: Basophil percentage 7.1 g/dL 6.4-8.2 [facility] Work Phone: Basophil percentage 0.40 mg/dL 0.20-1.00 [facility] Work Phone: [phone] Basophil percentage 137 mmol/L 136-145 [facility] Work Phone: Basophil percentage 4.2 mmol/L 3.5-5.1 [facility] Work Phone: [phone] Basophil percentage 104 mmol/L 98-107 [facility] Work Phone: [phone] Basophils (Bld) [#/Vol] 9.2 10*3/uL 4.4-11.0 [facility] Work Phone: [phone] Basophils (Bld) [#/Vol] 6.1 10*3/uL 2.0-7.7 [facility] Work Phone: [phone] Basophils/100 WBC (Bld) 0.3 % 0-1 [facility] Work Phone: [phone] Basophils/100 WBC (Bld) 66.6 % 47-70 [facility] Work Phone: [phone] Basophils/100 WBC (Bld) 2.0 % 0-5 [facility] Work Phone: [phone] Bilirubin [Mass/Vol] 0.40 mg/dL 0.20-1.00 [facility] Work Phone: Comment on above: For patients on eltr ombopag therapy, use of Dimension [place] TBIL is not recommended. Chloride [Moles/Vol] 104 mmol/L 98-107 [facility] Work Phone: Eosinophils/100 WBC (Bld) 2.0 % 0-5 [facility] Work Phone: Glucose [Mass/Vol] 142 mg/dL 74-106 [facility] Work Phone: Comment on above: Fasting Glucose resu lt greater than or equal to 126 mg/dL suggests DIABETES MELLITUS per A.D.A. criteria. Neutrophils (Bld) [#/Vol] 6.1 10*3/uL 2.0-7.7 [facility] Work Phone: Neutrophils/100 WBC (Bld) 66.6 % 47-70 [facility] Work Phone: Potassium [Moles/Vol] 4.2 mmol/L 3.5-5.1 [facility] Work Phone: Protein [Mass/Vol] 7.1 g/dL 6.4-8.2 [facility] Work Phone: Sodium [Moles/Vol] 137 mmol/L 136-145 [facility] Work Phone: WBC (Bld) [#/Vol] 9.2 10*3/uL 4.4-11.0 [facility] Work Phone: Blood erythrocytes count (nu mber/volume)on 05-22-2022 RBC (Bld) [#/Vol] 3.57 10*6/uL 4.6-6.2 [facility] Work Phone: Blood hemoglobin measurement (mass/volume)on 05-22-2022 Hemoglobin (Bld) [Mass/Vol] 9.7 g/dL 13.0-16.5 [facility] Work Phone: Blood lymphocytes/100 leukoc yteson 05-22-2022 Lymphocytes/100 WBC (Bld) 22.3 % 19-41 [facility] Work Phone: Blood monocytes/100 leukocyt eson 05-22-2022 Monocytes/100 WBC (Bld) 8.1 % 0-10 [facility] Work Phone: Blood platelet mean volumeon 05-22-2022 Platelet mean volume (Bld) [Entitic vol] 10.9 fL 6.2-12.0 [facility] Work Phone: Determination of erythrocyte mean corpuscular volume (MCV)on 05-22-2022 MCV (RBC) [Entitic vol] 88.2 fL 80-94 [facility] Work Phone: Hematocrit Auto (Bld) [Volum e fraction]on 05-22-2022 Hematocrit (Bld) [Volume fraction] 31.5 % 40-54 [facility] Work Phone: Laboratory - Chemistry and C hemistry - challengeon 05-22-2022 ALP [Catalytic activity/Vol] 60 U/L 45-117 [facility] Work Phone: ALT [Catalytic activity/Vol] 28 U/L 16-61 [facility] Work Phone: CO2 [Moles/Vol] 27.0 mmol/L 21.0-32.0 [facility] Work Phone: Globulin (S) [Mass/Vol] 4.0 g/dL 2.2-4.2 [facility] Work Phone: Natriuretic peptide B (Bld) [Mass/Vol] 432.4 pg/mL 0-100 [facility] Work Phone: Urea nitrogen/Creatinine [Mass ratio] 13.6 mg/mg 10-20 [facility] Work Phone: Laboratory - Hematology and Cell countson 05-22-2022 Erythrocyte distribution width (RBC) [Entitic vol] 45.5 fL 35.1-43.9 [facility] Work Phone: Erythrocyte distribution width (RBC) [Ratio] 14.1 % 11.6-14.6 [facility] Work Phone: Immature granulocytes/100 WBC (Bld) 0.700 % 0.0-0.9 [facility] Work Phone: Comment on above: IG% - Immature Granu locytes (promyelocytes, myelocytes and metamyelocytes) > 1% indicates that a LEFT SHIFT is Present. MCH (RBC) [Entitic mass] 27.2 pg 27.0-32.0 [facility] Work Phone: Nucleated RBC/100 WBC (Bld) [Ratio] 0 % 0-5 [facility] Work Phone: MCHC Auto (RBC) [Mass/Vol]on 05-22-2022 MCHC (RBC) [Mass/Vol] 30.8 g/dL 32-36 [facility] Work Phone: No Panel Informationon 05-22 Estimated Creatinine Clearance Calc 40.56 ml/min [facility] Work Phone: Estimated GFR (MDRD) Amer 62 mL/min >60 [facility] Work Phone: Comment on above: GFR Calc Estimated GFR (MDRD) Non-Af Amer 51 mL/min >60 [facility] Work Phone: Comment on above: Non- GFR Calc Troponin I High Sensitivity 46 pg/mL 3.0-78.0 [facility] Work Phone: Comment on above: Please Note: New Ana t Units and Gender Specific Reference Ranges. For more information see Policy Stat Procedure [place] High Sensitivity Troponin (TNIH) and attachments. 27.2 pg 27.0-32.0 [facility] Work Phone: 14.1 % 11.6-14.6 [facility] Work Phone: 45.5 fl 35.1-43.9 [facility] Work Phone: 0.700 % 0.0-0.9 [facility] Work Phone: 0 % 0-5 [facility] Work Phone: 51 mL/min >60 [facility] Work Phone: 62 mL/min >60 [facility] Work Phone: 40.56 ml/min [facility] Work Phone: 13.6 RATIO 10-20 [facility] Work Phone: 4.0 g/dL 2.2-4.2 [facility] Work Phone: 46 pg/mL 3.0-78.0 [facility] Work Phone: 60 U/L 45-117 [facility] Work Phone: 28 U/L 16-61 [facility] Work Phone: 27.0 mmol/L 21.0-32.0 [facility] Work Phone: 432.4 pg/mL 0-100 [facility] Work Phone: Platelets bldon 05-22-2022 Platelets (Bld) [#/Vol] 283 10*3/uL 150-450 [facility] Work Phone: Serum or plasma albumin harley urement (mass/volume)on 05-22-2022 Albumin [Mass/Vol] 3.1 g/dL 3.2-5.0 [facility] Work Phone: Serum or plasma albumin/glob ulin mass ratioon 05-22-2022 Albumin/Globulin [Mass ratio] 0.8 {ratio} 0.9-2.4 [facility] Work Phone: Serum or plasma calcium harley urement (mass/volume)on 05-22-2022 Calcium [Mass/Vol] 8.9 mg/dL 8.5-10.1 [facility] Work Phone: Serum or plasma creatinine m easurement (mass/volume)on 05-22-2022 Creatinine [Mass/Vol] 1.40 mg/dL 0.70-1.30 [facility] Work Phone: Comment on above: The validity of the calculated GFR & GFRAA in patients over 70 years has not been determined. Clinical correlation is essential. Serum or plasma urea nitroge n measurement (mass/volume)on 05-22-2022 Urea nitrogen [Mass/Vol] 19 mg/dL 7-18 [facility] Work Phone: Thin prep Papanicolaou smear with manual screeningon 05-22-2022 Thin prep Papanicolaou smear with manual screening 25 U/L 15-37 [facility] Work Phone: Thin prep Papanicolaou smear with manual screening 6 5-15 [facility] Work Phone: Absolute lymphocyte counton 05-16-2022 Lymphocytes Auto (Unsp spec) [#/Vol] 2.76 10*3/uL 0.83-4.51 [facility] Work Phone: Basophil percentageon 2021 Basophil percentage 3.4 mg/dL 2.5-4.9 [facility] Work Phone: Basophil percentage 147 mg/dL 74-106 [facility] Work Phone: Basophil percentage 6.6 g/dL 6.4-8.2 [facility] Work Phone: Basophil percentage 0.50 mg/dL 0.20-1.00 [facility] Work Phone: Basophil percentage 138 mmol/L 136-145 [facility] Work Phone: Basophil percentage 3.7 mmol/L 3.5-5.1 [facility] Work Phone: Basophil percentage 102 mmol/L 98-107 [facility] Work Phone: Basophils (Bld) [#/Vol] 7.9 10*3/uL 4.4-11.0 [facility] Work Phone: Basophils (Bld) [#/Vol] 4.1 10*3/uL 2.0-7.7 [facility] Work Phone: Basophils/100 WBC (Bld) 0.3 % 0-1 [facility] Work Phone: Basophils/100 WBC (Bld) 51.1 % 47-70 [facility] Work Phone: Basophils/100 WBC (Bld) 1.6 % 0-5 [facility] Work Phone: Bilirubin [Mass/Vol] 0.50 mg/dL 0.20-1.00 [facility] Work Phone: Comment on above: For patients on eltr ombopag therapy, use of Dimension [place] TBIL is not recommended. Chloride [Moles/Vol] 102 mmol/L 98-107 [facility] Work Phone: Eosinophils/100 WBC (Bld) 1.6 % 0-5 [facility] Work Phone: Glucose [Mass/Vol] 147 mg/dL 74-106 [facility] Work Phone: [phone] Comment on above: Fasting Glucose resu lt greater than or equal to 126 mg/dL suggests DIABETES MELLITUS per A.D.A. criteria. Neutrophils (Bld) [#/Vol] 4.1 10*3/uL 2.0-7.7 [facility] Work Phone: [phone] Neutrophils/100 WBC (Bld) 51.1 % 47-70 [facility] Work Phone: Potassium [Moles/Vol] 3.7 mmol/L 3.5-5.1 [facility] Work Phone: Protein [Mass/Vol] 6.6 g/dL 6.4-8.2 [facility] Work Phone: Sodium [Moles/Vol] 138 mmol/L 136-145 [facility] Work Phone: WBC (Bld) [#/Vol] 7.9 10*3/uL 4.4-11.0 [facility] Work Phone: Blood erythrocytes count (nu mber/volume)on 05-16-2022 RBC (Bld) [#/Vol] 3.42 10*6/uL 4.6-6.2 [facility] Work Phone: Blood hemoglobin measurement (mass/volume)on 05-16-2022 Hemoglobin (Bld) [Mass/Vol] 9.5 g/dL 13.0-16.5 [facility] Work Phone: [phone] Blood lymphocytes/100 leukoc yteson 05-16-2022 Lymphocytes/100 WBC (Bld) 34.8 % 19-41 [facility] Work Phone: Blood monocytes/100 leukocyt eson 05-16-2022 Monocytes/100 WBC (Bld) 11.8 % 0-10 [facility] Work Phone: Blood platelet mean volumeon 05-16-2022 Platelet mean volume (Bld) [Entitic vol] 11.0 fL 6.2-12.0 [facility] Work Phone: Determination of erythrocyte mean corpuscular volume (MCV)on 05-16-2022 MCV (RBC) [Entitic vol] 88.3 fL 80-94 [facility] Work Phone: Glucose Glucometer (BldC) [M ass/Vol]on 05-16-2022 Glucose [Mass/Vol] 223 mg/dL 74-106 [facility] Work Phone: Comment on above: MANAGEMENT OF PATIEN T CARE PER NURSING PROTOCOL Hematocrit Auto (Bld) [Volum e fraction]on 05-16-2022 Hematocrit (Bld) [Volume fraction] 30.2 % 40-54 [facility] Work Phone: Laboratory - Chemistry and C hemistry - challengeon 05-16-2022 ALP [Catalytic activity/Vol] 54 U/L 45-117 [facility] Work Phone: ALT [Catalytic activity/Vol] 21 U/L 16-61 [facility] Work Phone: CO2 [Moles/Vol] 29.0 mmol/L 21.0-32.0 [facility] Work Phone: Globulin (S) [Mass/Vol] 3.7 g/dL 2.2-4.2 [facility] Work Phone: Magnesium [Mass/Vol] 1.7 mg/dL 1.6-2.6 [facility] Work Phone: Urea nitrogen/Creatinine [Mass ratio] 14.4 mg/mg 10-20 [facility] Work Phone: Laboratory - Hematology and Cell countson 08-10-2022 Erythrocyte distribution width (RBC) [Entitic vol] 45.1 fL 35.1-43.9 [facility] Work Phone: Erythrocyte distribution width (RBC) [Ratio] 14.1 % 11.6-14.6 [facility] Work Phone: Immature granulocytes/100 WBC (Bld) 0.400 % 0.0-0.9 [facility] Work Phone: Comment on above: IG% - Immature Granu locytes (promyelocytes, myelocytes and metamyelocytes) > 1% indicates that a LEFT SHIFT is Present. MCH (RBC) [Entitic mass] 27.8 pg 27.0-32.0 [facility] Work Phone: Nucleated RBC/100 WBC (Bld) [Ratio] 0 % 0-5 [facility] Work Phone: MCHC Auto (RBC) [Mass/Vol]on 05-16-2022 MCHC (RBC) [Mass/Vol] 31.5 g/dL 32-36 [facility] Work Phone: No Panel Informationon 05-16 Estimated Creatinine Clearance Calc 40.85 ml/min [facility] Work Phone: Estimated GFR (MDRD) Amer 63 mL/min >60 [facility] Work Phone: Comment on above: GFR Calc Estimated GFR (MDRD) Non-Af Amer 52 mL/min >60 [facility] Work Phone: Comment on above: Non- GFR Calc Thyroid Stimulating Hormone (TSH) 2.11 uIU/mL 0.358-3.74 [facility] Work Phone: 27.8 pg 27.0-32.0 [facility] Work Phone: 14.1 % 11.6-14.6 [facility] Work Phone: 45.1 fl 35.1-43.9 [facility] Work Phone: 0.400 % 0.0-0.9 [facility] Work Phone: 0 % 0-5 [facility] Work Phone: [phone] 52 mL/min >60 [facility] Work Phone: 63 mL/min >60 [facility] Work Phone: [phone] 40.85 ml/min [facility] Work Phone: 14.4 RATIO 10-20 [facility] Work Phone: 3.7 g/dL 2.2-4.2 [facility] Work Phone: 54 U/L 45-117 [facility] Work Phone: 21 U/L 16-61 [facility] Work Phone: [phone] 1.7 mg/dL 1.6-2.6 [facility] Work Phone: 29.0 mmol/L 21.0-32.0 [facility] Work Phone: 2.11 uIU/mL 0.358-3.74 [facility] Work Phone: Platelets bldon 05-16-2022 Platelets (Bld) [#/Vol] 298 10*3/uL 150-450 [facility] Work Phone: Serum or plasma albumin harley urement (mass/volume)on 05-16-2022 Albumin [Mass/Vol] 2.9 g/dL 3.2-5.0 [facility] Work Phone: Serum or plasma albumin/glob ulin mass ratioon 05-16-2022 Albumin/Globulin [Mass ratio] 0.8 {ratio} 0.9-2.4 [facility] Work Phone: Serum or plasma calcium harley urement (mass/volume)on 05-16-2022 Calcium [Mass/Vol] 8.8 mg/dL 8.5-10.1 [facility] Work Phone: Serum or plasma creatinine m easurement (mass/volume)on 08-10-2022 Creatinine [Mass/Vol] 1.39 mg/dL 0.70-1.30 [facility] Work Phone: Comment on above: The validity of the calculated GFR & GFRAA in patients over 70 years has not been determined. Clinical correlation is essential. Serum or plasma urea nitroge n measurement (mass/volume)on 05-16-2022 Urea nitrogen [Mass/Vol] 20 mg/dL 7-18 [facility] Work Phone: Thin prep Papanicolaou smear with manual screeningon 05-16-2022 Thin prep Papanicolaou smear with manual screening 20 U/L 15-37 [facility] Work Phone: Thin prep Papanicolaou smear with manual screening 7 5-15 [facility] Work Phone: Absolute lymphocyte counton 05-15-2022 Lymphocytes Auto (Unsp spec) [#/Vol] 3.46 10*3/uL 0.83-4.51 [facility] Work Phone: Basophil percentageon 2021 Basophils/100 WBC (Bld) 0.4 % 0-1 [facility] Work Phone: [phone] Chloride [Moles/Vol] 105 mmol/L 98-107 [facility] Work Phone: Eosinophils/100 WBC (Bld) 1.9 % 0-5 [facility] Work Phone: Glucose [Mass/Vol] 157 mg/dL 74-106 [facility] Work Phone: Comment on above: Fasting Glucose resu lt greater than or equal to 126 mg/dL suggests DIABETES MELLITUS per A.D.A. criteria. Neutrophils (Bld) [#/Vol] 4.4 10*3/uL 2.0-7.7 [facility] Work Phone: Neutrophils/100 WBC (Bld) 49.1 % 47-70 [facility] Work Phone: Potassium [Moles/Vol] 3.9 mmol/L 3.5-5.1 [facility] Work Phone: Sodium [Moles/Vol] 139 mmol/L 136-145 [facility] Work Phone: [phone] WBC (Bld) [#/Vol] 9.0 10*3/uL 4.4-11.0 [facility] Work Phone: Blood erythrocytes count (nu mber/volume)on 05-15-2022 RBC (Bld) [#/Vol] 3.86 10*6/uL 4.6-6.2 [facility] Work Phone: Blood hemoglobin measurement (mass/volume)on 05-15-2022 Hemoglobin (Bld) [Mass/Vol] 10.7 g/dL 13.0-16.5 [facility] Work Phone: Blood lymphocytes/100 leukoc yteson 05-15-2022 Lymphocytes/100 WBC (Bld) 38.4 % 19-41 [facility] Work Phone: Blood monocytes/100 leukocyt eson 05-15-2022 Monocytes/100 WBC (Bld) 10.0 % 0-10 [facility] Work Phone: Blood platelet mean volumeon 05-15-2022 Platelet mean volume (Bld) [Entitic vol] 11.0 fL 6.2-12.0 [facility] Work Phone: Determination of erythrocyte mean corpuscular volume (MCV)on 05-15-2022 MCV (RBC) [Entitic vol] 89.6 fL 80-94 [facility] Work Phone: Hematocrit Auto (Bld) [Volum e fraction]on 05-15-2022 Hematocrit (Bld) [Volume fraction] 34.6 % 40-54 [facility] Work Phone: Laboratory - Chemistry and C hemistry - challengeon 05-15-2022 CO2 [Moles/Vol] 26.0 mmol/L 21.0-32.0 [facility] Work Phone: Natriuretic peptide B (Bld) [Mass/Vol] 674.0 pg/mL 0-100 [facility] Work Phone: Urea nitrogen/Creatinine [Mass ratio] 13.9 mg/mg 10-20 [facility] Work Phone: Laboratory - Hematology and Cell countson 05-15-2022 Erythrocyte distribution width (RBC) [Entitic vol] 47.0 fL 35.1-43.9 [facility] Work Phone: Erythrocyte distribution width (RBC) [Ratio] 14.5 % 11.6-14.6 [facility] Work Phone: Immature granulocytes/100 WBC (Bld) 0.200 % 0.0-0.9 [facility] Work Phone: Comment on above: IG% - Immature Granu locytes (promyelocytes, myelocytes and metamyelocytes) > 1% indicates that a LEFT SHIFT is Present. MCH (RBC) [Entitic mass] 27.7 pg 27.0-32.0 [facility] Work Phone: Nucleated RBC/100 WBC (Bld) [Ratio] 0 % 0-5 [facility] Work Phone: MCHC Auto (RBC) [Mass/Vol]on 05-15-2022 MCHC (RBC) [Mass/Vol] 30.9 g/dL 32-36 [facility] Work Phone: No Panel Informationon 05-15 Estimated Creatinine Clearance Calc 39.43 ml/min [facility] Work Phone: Estimated GFR (MDRD) Amer 60 mL/min >60 [facility] Work Phone: Comment on above: GFR Calc Estimated GFR (MDRD) Non-Af Amer 50 mL/min >60 [facility] Work Phone: Comment on above: Non- GFR Calc Troponin I High Sensitivity 38 pg/mL 3.0-78.0 [facility] Work Phone: Comment on above: Please Note: New Ana t Units and Gender Specific Reference Ranges. For more information see Policy Stat Procedure [place] High Sensitivity Troponin (TNIH) and attachments. 38 pg/mL 3.0-78.0 [facility] Work Phone: 674.0 pg/mL 0-100 [facility] Work Phone: Platelets bldon 05-15-2022 Platelets (Bld) [#/Vol] 239 10*3/uL 150-450 [facility] Work Phone: Serum or plasma calcium harley urement (mass/volume)on 05-15-2022 Calcium [Mass/Vol] 9.4 mg/dL 8.5-10.1 [facility] Work Phone: Serum or plasma creatinine m easurement (mass/volume)on 05-15-2022 Creatinine [Mass/Vol] 1.44 mg/dL 0.70-1.30 [facility] Work Phone: Comment on above: The validity of the calculated GFR & GFRAA in patients over 70 years has not been determined. Clinical correlation is essential. Serum or plasma urea nitroge n measurement (mass/volume)on 05-15-2022 Urea nitrogen [Mass/Vol] 20 mg/dL 7-18 [facility] Work Phone: Thin prep Papanicolaou smear with manual screeningon 05-15-2022 Thin prep Papanicolaou smear with manual screening 8 5-15 [facility] Work Phone: No Panel Informationon 04-26 [facility] Absolute lymphocyte counton 04-22-2022 Lymphocytes Auto (Unsp spec) [#/Vol] 2.83 10*3/uL 0.83-4.51 [facility] Work Phone: Basophil percentageon 2021 Basophil percentage >100 SEEN /hpf 0-5 [facility] Work Phone: Basophil percentage 182 mg/dL 74-106 [facility] Work Phone: Basophil percentage 138 mmol/L 136-145 [facility] Work Phone: [phone] Basophil percentage 3.8 mmol/L 3.5-5.1 [facility] Work Phone: Basophil percentage 104 mmol/L 98-107 [facility] Work [facility]: Basophils (Bld) [#/Vol] 12.7 10*3/uL 4.4-11.0 [facility] Work Phone: Basophils (Bld) [#/Vol] 8.4 10*3/uL 2.0-7.7 [facility] Work Phone: Basophils/100 WBC (Bld) 0.4 % 0-1 [facility] Work Phone: Basophils/100 WBC (Bld) 66.2 % 47-70 [facility] Work Phone: Basophils/100 WBC (Bld) 1.4 % 0-5 [facility] Work Phone: Chloride [Moles/Vol] 104 mmol/L 98-[address] [facility] [facility] [facility]: Eosinophils/100 WBC (Bld) 1.4 % 0-5 [facility] Work Phone: Glucose [Mass/Vol] 182 mg/dL 74-106 [facility] Work Phone: Comment on above: Fasting Glucose resu lt greater than or equal to 126 mg/dL suggests DIABETES MELLITUS per A.D.A. criteria. Neutrophils (Bld) [#/Vol] 8.4 10*3/uL 2.0-7.7 [facility] Work Phone: Neutrophils/100 WBC (Bld) 66.2 % 47-70 [facility] Work Phone: Potassium [Moles/Vol] 3.8 mmol/L [facility].5-5.1 [facility]: Sodium [Moles/Vol] 138 mmol/L 136-145 [facility] Work Phone: WBC (Bld) [#/Vol] 12.7 10*3/uL 4.4-11.0 [facility] Work Phone: Bilirubin Test strip Ql (U)o n 04-22-2022 Bilirubin Ql (U) Negative Negative [facility] Work Phone: Blood erythrocytes count (nu mber/volume)on 04-22-2022 RBC (Bld) [#/Vol] 3.37 10*6/uL 4.6-6.2 [facility] Work Phone: Blood hemoglobin measurement (mass/volume)on 04-22-2022 Hemoglobin (Bld) [Mass/Vol] 10.5 g/dL 13.0-16.5 [facility] Work Phone: Blood lymphocytes/100 leukoc yteson 04-22-2022 Lymphocytes/100 WBC (Bld) 22.2 % 19-41 [facility] Work Phone: Blood monocytes/100 leukocyt eson 04-22-2022 Monocytes/100 WBC (Bld) 9.2 % 0-10 [facility] Work Phone: Blood platelet mean volumeon 04-22-2022 Platelet mean volume (Bld) [Entitic vol] 9.6 fL 6.2-12.0 [facility] Work Phone: Determination of erythrocyte mean corpuscular volume (MCV)on 04-22-2022 MCV (RBC) [Entitic vol] 93.2 fL 80-94 [facility] Work Phone: Hematocrit Auto (Bld) [Volum e fraction]on 04-22-2022 Hematocrit (Bld) [Volume fraction] 31.4 % 40-54 [facility] Work Phone: Ketones Test strip Ql (U)on 04-22-2022 Ketones Ql (U) Negative Negative [facility] Work Phone: Laboratory - Chemistry and C hemistry - challengeon 04-22-2022 CO2 [Moles/Vol] 25.0 mmol/L 21.0-32.0 [facility] Work Phone: Urea nitrogen/Creatinine [Mass ratio] 15.8 mg/mg 10-20 [facility] Work Phone: Laboratory - Hematology and Cell countson 04-22-2022 Erythrocyte distribution width (RBC) [Entitic vol] 44.7 fL 35.1-43.9 [facility] Work Phone: Erythrocyte distribution width (RBC) [Ratio] 14.3 % 11.6-14.6 [facility] Work Phone: Immature granulocytes/100 WBC (Bld) 0.600 % 0.0-0.9 [facility] Work Phone: Comment on above: IG% - Immature Granu locytes (promyelocytes, myelocytes and metamyelocytes) > 1% indicates that a LEFT SHIFT is Present. MCH (RBC) [Entitic mass] 31.2 pg 27.0-32.0 [facility] Work Phone: Nucleated RBC/100 WBC (Bld) [Ratio] 0 % 0-5 [facility] Work Phone: MCHC Auto (RBC) [Mass/Vol]on 04-22-2022 MCHC (RBC) [Mass/Vol] 33.4 g/dL 32-36 [facility] Work Phone: Mucus LM Ql (Urine sed)on Mucus Ql (Urine sed) 0 SEEN /hpf [facility] Work Phone: Nitrite Test strip Ql (U)on 04-22-2022 Nitrite Ql (U) Negative Negative [facility] Work Phone: No Panel Informationon 04-22 Estimated Creatinine Clearance Calc 37.35 ml/min [facility] Work Phone: Estimated GFR (MDRD) Amer 56 mL/min >60 [facility] Work Phone: Comment on above: GFR Calc Estimated GFR (MDRD) Non-Af Amer 47 mL/min >60 [facility] Work Phone: Comment on above: Non- GFR Calc 31.2 pg 27.0-32.0 [facility] Work Phone: 14.3 % 11.6-14.6 [facility] Work Phone: 44.7 fl 35.1-43.9 [facility] Work Phone: 0.600 % 0.0-0.9 [facility] Work Phone: 0 % 0-5 [facility] Work Phone: 47 mL/min >60 [facility] Work Phone: 56 mL/min >60 [facility] Work Phone: 37.35 ml/min [facility] Work Phone: [phone] 15.8 RATIO 10-20 [facility] Work Phone: 25.0 mmol/L 21.0-32.0 [facility] Work Phone: Platelets bldon 04-22-2022 Platelets (Bld) [#/Vol] 386 10*3/uL 150-450 [facility] Work Phone: Protein Test strip Ql (U)on 04-22-2022 Protein Ql (U) 500 mg/dl Negative [facility] Work Phone: Serum or plasma calcium harley urement (mass/volume)on 04-22-2022 Calcium [Mass/Vol] 9.6 mg/dL 8.5-10.1 [facility] Work Phone: Serum or plasma creatinine m easurement (mass/volume)on 04-22-2022 Creatinine [Mass/Vol] 1.52 mg/dL 0.70-1.30 [facility] Work Phone: Comment on above: The validity of the calculated GFR & GFRAA in patients over 70 years has not been determined. Clinical correlation is essential. Serum or plasma urea nitroge n measurement (mass/volume)on 04-22-2022 Urea nitrogen [Mass/Vol] 24 mg/dL 7-18 [facility] Work Phone: Squamous epithelial cells de tection in urine sediment by light microscopyon 04-22-2022 Epithelial cells.squamous LM Ql (Urine sed) 0 SEEN /hpf 0-5 [facility] Work Phone: Thin prep Papanicolaou smear with manual screeningon 04-22-2022 Thin prep Papanicolaou smear with manual screening 9 5-15 [facility] Work Phone: Urine blood detectionon 04-06 RBC Ql (U) 25 /ul Negative [facility] Work Phone: RBC Ql (U) 0 SEEN /hpf 0-5 [facility] Work Phone: Urine clarityon 04-22-2022 Clarity (U) Cloudy Clear [facility] Work Phone: Urine color determinationon 04-22-2022 Color (U) Yellow Yellow [facility] Work Phone: Urine glucose detectionon Glucose Ql (U) Normal mg/dl Normal [facility] Work Phone: Urine leukocyte esterase det ection by dipstickon 04-22-2022 Leukocyte esterase Test strip Ql (U) 500 /ul Negative [facility] Work Phone: Urine pHon 04-22-2022 pH (U) 6.0 [pH] 5.0 - 8.0 [facility] Work Phone: Urine sediment bacteria coun t by microscopy (number/high power field)on 04-22-2022 Bacteria LM.HPF (Urine sed) [#/Area] 0 /[HPF] None Seen [facility] Work Phone: Urine specific gravity measu rementon 04-22-2022 Specific gravity (U) [Rel density] 1.010 1.002-1.030 [facility] Work Phone: Urobilinogen Auto test strip Ql (U)on 04-22-2022 Urobilinogen Ql (U) Normal mg/dl Normal [facility] Work Phone: Glucose Glucometer (BldC) [M ass/Vol]on 03-22-2022 Glucose [Mass/Vol] 137 mg/dL 74-106 [facility] Work Phone: Comment on above: MANAGEMENT OF PATIEN T CARE PER NURSING PROTOCOL Absolute lymphocyte counton 03-17-2022 Lymphocytes Auto (Unsp spec) [#/Vol] 2.37 10*3/uL 0.83-4.51 [facility] Work Phone: Basophil percentageon 2021 Basophil percentage 5-10 SEEN /hpf 0-5 [facility] Work Phone: Basophil percentage 132 mg/dL 74-106 [facility] Work Phone: Basophil percentage 136 mmol/L 136-145 [facility] Work Phone: Basophil percentage 3.7 mmol/L 3.5-5.1 [facility] Work Phone: Basophil percentage 102 mmol/L 98-107 [facility] Work Phone: [phone] Basophils (Bld) [#/Vol] 8.6 10*3/uL 4.4-11.0 [facility] Work Phone: Basophils (Bld) [#/Vol] 5.0 10*3/uL 2.0-7.7 [facility] Work Phone: Basophils/100 WBC (Bld) 0.6 % 0-1 [facility] Work Phone: Basophils/100 WBC (Bld) 57.8 % 47-70 [facility] Work Phone: Basophils/100 WBC (Bld) 2.8 % 0-5 [facility] Work Phone: Chloride [Moles/Vol] 102 mmol/L 98-[address] [facility] [facility] [facility] Work [facility]: Eosinophils/100 WBC (Bld) 2.8 % 0-5 [facility] Work Phone: Glucose [Mass/Vol] 132 mg/dL 74-106 [facility] Work Phone: Comment on above: Fasting Glucose resu lt greater than or equal to 126 mg/dL suggests DIABETES MELLITUS per A.D.A. criteria. Neutrophils (Bld) [#/Vol] 5.0 10*3/uL 2.0-7.7 [facility] Work Phone: Neutrophils/100 WBC (Bld) 57.8 % 47-70 [facility] Work Phone: Potassium [Moles/Vol] 3.7 mmol/L 3.5-5.1 [facility] Work Phone: Sodium [Moles/Vol] 136 mmol/L 136-145 [facility] Work Phone: [phone] WBC (Bld) [#/Vol] 8.6 10*3/uL 4.4-11.0 [facility] Work Phone: Bilirubin Test strip Ql (U)o n 03-17-2022 Bilirubin Ql (U) Negative Negative [facility] Work Phone: Blood erythrocytes count (nu mber/volume)on 03-17-2022 RBC (Bld) [#/Vol] 3.48 10*6/uL 4.6-6.2 [facility] Work Phone: [phone] Blood hemoglobin measurement (mass/volume)on 03-17-2022 Hemoglobin (Bld) [Mass/Vol] 10.1 g/dL 13.0-16.5 [facility] Work Phone: Blood lymphocytes/100 leukoc yteson 03-17-2022 Lymphocytes/100 WBC (Bld) 27.6 % 19-41 [facility] Work Phone: [phone] Blood monocytes/100 leukocyt eson 03-17-2022 Monocytes/100 WBC (Bld) 9.9 % 0-10 [facility] Work Phone: Blood platelet mean volumeon 03-17-2022 Platelet mean volume (Bld) [Entitic vol] 10.9 fL 6.2-12.0 [facility] Work Phone: Determination of erythrocyte mean corpuscular volume (MCV)on 03-17-2022 MCV (RBC) [Entitic vol] 89.4 fL 80-94 [facility] Work Phone: Hematocrit Auto (Bld) [Volum e fraction]on 03-17-2022 Hematocrit (Bld) [Volume fraction] 31.1 % 40-54 [facility] Work Phone: Ketones Test strip Ql (U)on 03-17-2022 Ketones Ql (U) Negative Negative [facility] Work Phone: Laboratory - Chemistry and C hemistry - challengeon 03-17-2022 CO2 [Moles/Vol] 28.0 mmol/L 21.0-32.0 [facility] Work Phone: Urea nitrogen/Creatinine [Mass ratio] 19.0 mg/mg 10-20 [facility] Work Phone: Laboratory - Hematology and Cell countson 03-17-2022 Erythrocyte distribution width (RBC) [Entitic vol] 43.9 fL 35.1-43.9 [facility] Work Phone: Erythrocyte distribution width (RBC) [Ratio] 13.6 % 11.6-14.6 [facility] Work Phone: Immature granulocytes/100 WBC (Bld) 1.300 % 0.0-0.9 [facility] Work Phone: Comment on above: IG% - Immature Granu locytes (promyelocytes, myelocytes and metamyelocytes) > 1% indicates that a LEFT SHIFT is Present. MCH (RBC) [Entitic mass] 29.0 pg 27.0-32.0 [facility] Work Phone: Nucleated RBC/100 WBC (Bld) [Ratio] 0 % 0-5 [facility] Work Phone: MCHC Auto (RBC) [Mass/Vol]on 03-17-2022 MCHC (RBC) [Mass/Vol] 32.5 g/dL 32-36 [facility] Work [facility]: Mucus LM Ql (Urine sed)on Mucus Ql (Urine sed) 0 SEEN /hpf [facility] Work Phone: Nitrite Test strip Ql (U)on 03-17-2022 Nitrite Ql (U) Negative Negative [facility] Work Phone: No Panel Informationon 03-17 Estimated Creatinine Clearance Calc 48.95 ml/min [facility] Work Phone: Estimated GFR (MDRD) Amer 77 mL/min >60 [facility] Work Phone: Comment on above: GFR Calc Estimated GFR (MDRD) Non-Af Amer 64 mL/min >60 [facility] Work Phone: Comment on above: Non- GFR Calc 29.0 pg 27.0-32.0 [facility] Work Phone: 13.6 % 11.6-14.6 [facility] Work Phone: 43.9 fl 35.1-43.9 [facility] Work Phone: 1.300 % 0.0-0.9 [facility] Work Phone: 0 % 0-5 [facility] Work Phone: 64 mL/min >60 [facility] Work Phone: 77 mL/min >60 [facility] Work Phone: 48.95 ml/min [facility] Work Phone: 19.0 RATIO 10-20 [facility] Work Phone: 28.0 mmol/L 21.0-32.0 [facility] Work Phone: Platelets bldon 03-17-2022 Platelets (Bld) [#/Vol] 293 10*3/uL 150-450 [facility] Work Phone: Protein Test strip Ql (U)on 03-17-2022 Protein Ql (U) 500 mg/dl Negative [facility] Work Phone: Serum or plasma calcium harley urement (mass/volume)on 03-17-2022 Calcium [Mass/Vol] 9.3 mg/dL 8.5-10.1 [facility] Work Phone: Serum or plasma creatinine m easurement (mass/volume)on 03-17-2022 Creatinine [Mass/Vol] 1.16 mg/dL 0.70-1.30 [facility] Work Phone: Comment on above: The validity of the calculated GFR & GFRAA in patients over 70 years has not been determined. Clinical correlation is essential. Serum or plasma urea nitroge n measurement (mass/volume)on 03-17-2022 Urea nitrogen [Mass/Vol] 22 mg/dL 7-18 [facility] Work Phone: Squamous epithelial cells de tection in urine sediment by light microscopyon 03-17-2022 Epithelial cells.squamous LM Ql (Urine sed) 0 SEEN /hpf 0-5 [facility] Work Phone: Thin prep Papanicolaou smear with manual screeningon 03-17-2022 Thin prep Papanicolaou smear with manual screening 6 5-15 [facility] Work Phone: Urine blood detectionon 03-07 RBC Ql (U) 150 /ul Negative [facility] Work Phone: RBC Ql (U) 10-25 SEEN /hpf 0-5 [facility] Work Phone: Urine clarityon 03-17-2022 Clarity (U) Clear Clear [facility] Work Phone: Urine color determinationon 03-17-2022 Color (U) Yellow Yellow [facility] Work Phone: Urine glucose detectionon Glucose Ql (U) Normal mg/dl Normal [facility] Work Phone: Urine leukocyte esterase det ection by dipstickon 03-17-2022 Leukocyte esterase Test strip Ql (U) 500 /ul Negative [facility] Work Phone: Urine pHon 03-17-2022 pH (U) 6.0 [pH] 5.0 - 8.0 [facility] Work Phone: Urine sediment bacteria coun t by microscopy (number/high power field)on 03-17-2022 Bacteria LM.HPF (Urine sed) [#/Area] 0 /[HPF] None Seen [facility] Work Phone: Urine specific gravity measu rementon 03-17-2022 Specific gravity (U) [Rel density] 1.015 1.002-1.030 [facility] Work Phone: Urobilinogen Auto test strip Ql (U)on 03-17-2022 Urobilinogen Ql (U) Normal mg/dl Normal [facility] Work Phone: Glucose Glucometer (BldC) [M ass/Vol]on 03-07-2022 Glucose [Mass/Vol] 134 mg/dL 74-106 [facility] Work Phone: Comment on above: MANAGEMENT OF PATIEN T CARE PER NURSING PROTOCOL Culture, urineon 02-06-2022 Bacteria identified Cx Nom (U) Enterococcus faecalis [facility] Work Phone: Absolute lymphocyte counton 01-25-2022 Lymphocytes Auto (Unsp spec) [#/Vol] 3.09 10*3/uL 0.83-4.51 [facility] Work Phone: Basophil percentageon 2021 Basophils/100 WBC (Bld) 0.6 % 0-1 [facility] Work Phone: Chloride [Moles/Vol] 100 mmol/L 98-107 [facility] Work Phone: Eosinophils/100 WBC (Bld) 2.7 % 0-5 [facility] Work Phone: Glucose [Mass/Vol] 141 mg/dL 74-106 [facility] Work Phone: Comment on above: Slight Lipemia, Resu lt may be falsely increased.Fasting Glucose result greater than or equal to 126 mg/dL suggests DIABETES MELLITUS per A.D.A. criteria. Neutrophils (Bld) [#/Vol] 6.2 10*3/uL 2.0-7.7 [facility] Work Phone: Neutrophils/100 WBC (Bld) 57.6 % 47-70 [facility] Work Phone: [phone] Potassium [Moles/Vol] 4.0 mmol/L 3.5-5.1 [facility] Work Phone: [phone] Comment on above: Slight Lipemia, Resu lt may be falsely increased. Sodium [Moles/Vol] 137 mmol/L 136-145 [facility]: WBC (Bld) [#/Vol] 10.8 10*3/uL 4.4-11.0 [facility] Work Phone: Blood erythrocytes count (nu mber/volume)on 01-25-2022 RBC (Bld) [#/Vol] 3.36 10*6/uL 4.6-6.2 [facility] Work Phone: Blood hemoglobin measurement (mass/volume)on 01-25-2022 Hemoglobin (Bld) [Mass/Vol] 11.6 g/dL 13.0-16.5 [facility] Work Phone: Blood lymphocytes/100 leukoc yteson 01-25-2022 Lymphocytes/100 WBC (Bld) 28.7 % 19-41 [facility] Work Phone: Blood monocytes/100 leukocyt eson 01-25-2022 Monocytes/100 WBC (Bld) 9.8 % 0-10 [facility] Work Phone: Blood platelet mean volumeon 01-25-2022 Platelet mean volume (Bld) [Entitic vol] 10.1 fL 6.2-12.0 [facility] Work Phone: Determination of erythrocyte mean corpuscular volume (MCV)on 01-25-2022 MCV (RBC) [Entitic vol] 93.2 fL 80-94 [facility] Work Phone: Hematocrit Auto (Bld) [Volum e fraction]on 01-25-2022 Hematocrit (Bld) [Volume fraction] 31.3 % 40-54 [facility] Work Phone: Laboratory - Chemistry and C hemistry - challengeon 01-25-2022 CO2 [Moles/Vol] 30.0 mmol/L 21.0-32.0 [facility] Work Phone: Comment on above: Slight Lipemia, Resu lt may be falsely increased. Natriuretic peptide B (Bld) [Mass/Vol] 82.8 pg/mL 0-100 [facility] Work Phone: Urea nitrogen/Creatinine [Mass ratio] 25.0 mg/mg 10-20 [facility] Work Phone: Laboratory - Hematology and Cell countson 01-25-2022 Erythrocyte distribution width (RBC) [Entitic vol] 46.9 fL 35.1-43.9 [facility] Work Phone: Erythrocyte distribution width (RBC) [Ratio] 15.4 % 11.6-14.6 [facility] Work Phone: Immature granulocytes/100 WBC (Bld) 0.600 % 0.0-0.9 [facility] Work Phone: Comment on above: IG% - Immature Granu locytes (promyelocytes, myelocytes and metamyelocytes) > 1% indicates that a LEFT SHIFT is Present. MCH (RBC) [Entitic mass] 34.5 pg 27.0-32.0 [facility] Work Phone: Nucleated RBC/100 WBC (Bld) [Ratio] 0 % 0-5 [facility] Work Phone: MCHC Auto (RBC) [Mass/Vol]on 01-25-2022 MCHC (RBC) [Mass/Vol] 37.1 g/dL 32-36 [facility] Work Phone: No Panel Informationon 01-25 Estimated GFR (MDRD) Amer 56 mL/min >60 [facility] Work Phone: Comment on above: GFR Calc Estimated GFR (MDRD) Non-Af Amer 47 mL/min >60 [facility] Work Phone: Comment on above: Non- GFR Calc Platelets bldon 01-25-2022 Platelets (Bld) [#/Vol] 353 10*3/uL 150-450 [facility] Work Phone: Serum or plasma calcium harley urement (mass/volume)on 01-25-2022 Calcium [Mass/Vol] 9.6 mg/dL 8.5-10.1 [facility] Work Phone: Comment on above: Slight Lipemia, Resu lt may be falsely increased. Serum or plasma creatinine m easurement (mass/volume)on 01-25-2022 Creatinine [Mass/Vol] 1.52 mg/dL 0.70-1.30 [facility] Work Phone: Comment on above: Slight Lipemia, Resu lt may be falsely increased.The validity of the calculated GFR & GFRAA in patients over 70 years has not been determined. Clinical correlation is essential. Serum or plasma urea nitroge n measurement (mass/volume)on 01-25-2022 Urea nitrogen [Mass/Vol] 38 mg/dL 7-18 [facility] Work Phone: Comment on above: Slight Lipemia, Resu lt may be falsely increased. Thin prep Papanicolaou smear with manual screeningon 01-25-2022 Thin prep Papanicolaou smear with manual screening 7 5-15 [facility] Work Phone: Basophil percentageon 2021 Basophil percentage >100 SEEN /hpf 0-5 [facility] Work Phone: Comment on above: Microscopic field is filled. Other elements may be obscured. Culture, urineon 01-17-2022 Bacteria identified Cx Nom (U) Enterococcus faecalis [facility] Work Phone: Ketones Test strip Ql (U)on 01-17-2022 Ketones Ql (U) Negative Negative [facility] Work Phone: Laboratory - Chemistry and C hemistry - challengeon 01-17-2022 Glucose Ql (U) Negative [facility] Work Phone: Ketones Ql (U) Small (15+) [facility] Work Phone: Specific gravity (U) [Rel density] 1.020 [facility] Work Phone: Laboratory - Hematology and Cell countson 01-17-2022 Hemoglobin Ql (U) Moderate [facility] Work Phone: Laboratory - Urinalysison Protein Ql (U) 3+ [facility] Work Phone: Mucus LM Ql (Urine sed)on Mucus Ql (Urine sed) 0 SEEN /hpf [facility] Work Phone: Nitrite ur dipstickon 2021 Nitrite Ql (U) Negative [facility] Work Phone: No Panel Informationon 01-17 Urine Leukocytes Positive [facility] Work Phone: Urine Non-Hemolyzed Blood Non-Hemolyzed [facility] Work Phone: Protein Test strip Ql (U)on 01-17-2022 Protein Ql (U) 500 mg/dl Negative [facility] Work Phone: Squamous epithelial cells de tection in urine sediment by light microscopyon 01-17-2022 Epithelial cells.squamous LM Ql (Urine sed) 0 SEEN /hpf 0-5 [facility] Work Phone: Urine blood detectionon 01-05 RBC Ql (U) 25 /ul Negative [facility] Work Phone: RBC Ql (U) 0 SEEN /hpf 0-5 [facility] Work Phone: Urine clarityon 01-17-2022 Clarity (U) Cloudy [facility] Work Phone: Urine color determinationon 01-17-2022 Color (U) Yellow [facility] Work Phone: Urine glucose detectionon Glucose Ql (U) Normal mg/dl Normal [facility] Work Phone: Urine leukocyte esterase det ection by dipstickon 01-17-2022 Leukocyte esterase Test strip Ql (U) 500 /ul Negative [facility] Work Phone: Urine pHon 01-17-2022 pH (U) 6.0 [pH] [facility] Work Phone: Urine sediment bacteria coun t by microscopy (number/high power field)on 01-17-2022 Bacteria LM.HPF (Urine sed) [#/Area] 1 /[HPF] None Seen [facility] Work Phone: Urine specific gravity measu rementon 01-17-2022 Specific gravity (U) [Rel density] 1.015 1.002-1.030 [facility] Work Phone: Urine total bilirubin detect ion by test stripon 01-17-2022 Bilirubin Ql (U) Negative [facility] Work Phone: Urobilinogen Auto test strip Ql (U)on 01-17-2022 Urobilinogen Ql (U) Normal mg/dl Normal [facility] Work Phone: Basophil percentageon 2021 Basophil percentage 50-100 SEEN /hpf 0-5 [facility] Work Phone: Bilirubin Test strip Ql (U)o n 01-04-2022 Bilirubin Ql (U) Negative Negative [facility] Work Phone: Culture, urineon 01-04-2022 Bacteria identified Cx Nom (U) Enterococcus faecalis [facility] Work Phone: Ketones Test strip Ql (U)on 01-04-2022 Ketones Ql (U) Negative Negative [facility] Work Phone: Laboratory - Chemistry and C hemistry - challengeon 01-04-2022 Bilirubin Ql (U) Negative [facility] Work Phone: Ketones Ql (U) Negative [facility] Work Phone: pH (U) 5.0 [pH] [facility] Work Phone: Specific gravity (U) [Rel density] 1.020 [facility] Work Phone: Urobilinogen (U) [Mass/Vol] Negative [facility] Work Phone: Laboratory - Hematology and Cell countson 01-04-2022 Hemoglobin Ql (U) Negative [facility] Work Phone: Laboratory - Specimen inform ationon 01-04-2022 Clarity (U) Cloudy [facility] Work Phone: Color (U) YELLOW [facility] Work Phone: Laboratory - Urinalysison Nitrite Ql (U) Negative [facility] Work Phone: Protein Ql (U) 3+ [facility] Work Phone: Mucus LM Ql (Urine sed)on Mucus Ql (Urine sed) 0 SEEN /hpf [facility] Work Phone: Nitrite Test strip Ql (U)on 01-04-2022 Nitrite Ql (U) Negative Negative [facility] Work Phone: No Panel Informationon 01-04 Urine Leukocytes Positive [facility] Work Phone: Urine Non-Hemolyzed Blood Negative [facility] Work Phone: Protein Test strip Ql (U)on 01-04-2022 Protein Ql (U) 500 mg/dl Negative [facility] Work Phone: Squamous epithelial cells de tection in urine sediment by light microscopyon 01-04-2022 Epithelial cells.squamous LM Ql (Urine sed) 0-5 SEEN /hpf 0-5 [facility] Work Phone: Urine blood detectionon 12-07 RBC Ql (U) 10 /ul Negative [facility] Work Phone: RBC Ql (U) 0-5 SEEN /hpf 0-5 [facility] Work Phone: Urine clarityon 01-04-2022 Clarity (U) Cloudy Clear [facility] Work Phone: Urine color determinationon 01-04-2022 Color (U) Yellow Yellow [facility] Work Phone: Urine glucose detectionon Glucose Ql (U) Normal mg/dl Normal [facility] Work Phone: Urine leukocyte esterase det ection by dipstickon 01-04-2022 Leukocyte esterase Test strip Ql (U) 500 /ul Negative [facility] Work Phone: Urine pHon 01-04-2022 pH (U) 5.0 [pH] 5.0 - 8.0 [facility] Work Phone: Urine sediment bacteria coun t by microscopy (number/high power field)on 01-04-2022 Bacteria LM.HPF (Urine sed) [#/Area] 3 /[HPF] None Seen [facility] Work Phone: Urine specific gravity measu rementon 01-04-2022 Specific gravity (U) [Rel density] 1.020 1.002-1.030 [facility] Work Phone: Urobilinogen Auto test strip Ql (U)on 01-04-2022 Urobilinogen Ql (U) Normal mg/dl Normal [facility] Work Phone: Basophil percentageon 2021 Chloride [Moles/Vol] 103 mmol/L 98-107 [facility] Work Phone: Glucose [Mass/Vol] 177 mg/dL 74-106 [facility] Work Phone: Comment on above: Slight Lipemia, Resu lt may be falsely increased.Fasting Glucose result greater than or equal to 126 mg/dL suggests DIABETES MELLITUS per A.D.A. criteria. Potassium [Moles/Vol] 3.6 mmol/L 3.5-5.1 [facility] Work Phone: Comment on above: Slight Lipemia, Resu lt may be falsely increased. Sodium [Moles/Vol] 137 mmol/L 136-145 [facility] Work Phone: Laboratory - Chemistry and C hemistry - challengeon 11-06-2021 CO2 [Moles/Vol] 26.0 mmol/L 21.0-32.0 [facility] Work Phone: Comment on above: Slight Lipemia, Resu lt may be falsely increased. Urea nitrogen/Creatinine [Mass ratio] 17.4 mg/mg 10-20 [facility] Work Phone: No Panel Informationon 11-06 Estimated GFR (MDRD) Amer 73 mL/min >60 [facility] Work Phone: Comment on above: GFR Calc Estimated GFR (MDRD) Non-Af Amer 61 mL/min >60 [facility] Work Phone: Comment on above: Non- GFR Calc Serum or plasma calcium harley urement (mass/volume)on 11-06-2021 Calcium [Mass/Vol] 9.1 mg/dL 8.5-10.1 [facility] Work Phone: Comment on above: Slight Lipemia, Resu lt may be falsely increased. Serum or plasma creatinine m easurement (mass/volume)on 11-06-2021 Creatinine [Mass/Vol] 1.21 mg/dL 0.70-1.30 [facility] Work Phone: Comment on above: Slight Lipemia, Resu lt may be falsely increased.The validity of the calculated GFR & GFRAA in patients over 70 years has not been determined. Clinical correlation is essential. Serum or plasma urea nitroge n measurement (mass/volume)on 11-06-2021 Urea nitrogen [Mass/Vol] 21 mg/dL 7-18 [facility] Work Phone: Comment on above: Slight Lipemia, Resu lt may be falsely increased. Thin prep Papanicolaou smear with manual screeningon 11-06-2021 Thin prep Papanicolaou smear with manual screening 8 5-15 [facility] Work Phone: No Panel Informationon 11-01 Troponin I High Sensitivity 36 pg/mL 3.0-78.0 [facility] Work Phone: Comment on above: Please Note: New Ana t Units and Gender Specific Reference Ranges. For more information see Policy Stat Procedure [place] High Sensitivity Troponin (TNIH) and attachments. Absolute lymphocyte counton 10-31-2021 Lymphocytes Auto (Unsp spec) [#/Vol] 2.97 10*3/uL 0.83-4.51 [facility] Work Phone: Basophil percentageon 2021 Basophils/100 WBC (Bld) 0.6 % 0-1 [facility] Work Phone: Chloride [Moles/Vol] 102 mmol/L 98-107 [facility] Work Phone: Eosinophils/100 WBC (Bld) 2.1 % 0-5 [facility] Work Phone: Glucose [Mass/Vol] 117 mg/dL 74-106 [facility] Work Phone: Comment on above: Slight Lipemia, Resu lt may be falsely increased.Fasting Glucose result from 100 to 125 mg/dL suggests IMPAIRED HOMEOSTASIS per A.D.A. criteria. Neutrophils (Bld) [#/Vol] 5.6 10*3/uL 2.0-7.7 [facility] Work Phone: Neutrophils/100 WBC (Bld) 56.9 % 47-70 [facility] Work Phone: Potassium [Moles/Vol] 3.8 mmol/L 3.5-5.1 [facility] Work Phone: Comment on above: Slight Lipemia, Resu lt may be falsely increased. Sodium [Moles/Vol] 138 mmol/L 136-145 [facility] Work Phone: WBC (Bld) [#/Vol] 9.8 10*3/uL 4.4-11.0 [facility] Work Phone: Blood erythrocytes count (nu mber/volume)on 10-31-2021 RBC (Bld) [#/Vol] 4.10 10*6/uL 4.6-6.2 [facility]: Blood hemoglobin measurement (mass/volume)on 10-31-2021 Hemoglobin (Bld) [Mass/Vol] 12.1 g/dL 13.0-16.5 [facility] Work Phone: Blood lymphocytes/100 leukoc yteson 10-31-2021 Lymphocytes/100 WBC (Bld) 30.3 % 19-41 [facility] Work Phone: Blood monocytes/100 leukocyt eson 10-31-2021 Monocytes/100 WBC (Bld) 9.7 % 0-10 [facility] Work Phone: Blood platelet mean volumeon 10-31-2021 Platelet mean volume (Bld) [Entitic vol] 10.5 fL 6.2-12.0 [facility] Work Phone: Determination of erythrocyte mean corpuscular volume (MCV)on 10-31-2021 MCV (RBC) [Entitic vol] 90.2 fL 80-94 [facility] Work Phone: Hematocrit Auto (Bld) [Volum e fraction]on 10-31-2021 Hematocrit (Bld) [Volume fraction] 37.0 % 40-54 [facility] Work Phone: Laboratory - Chemistry and C hemistry - challengeon 10-31-2021 CO2 [Moles/Vol] 26.0 mmol/L 21.0-32.0 [facility] Work Phone: Comment on above: Slight Lipemia, Resu lt may be falsely increased. Magnesium [Mass/Vol] 1.8 mg/dL 1.6-2.[address] [facility] Work [facility]: Comment on above: Slight Lipemia, Resu lt may be falsely increased. Natriuretic peptide B (Bld) [Mass/Vol] 219.4 pg/mL 0-100 [facility] Work Phone: Urea nitrogen/Creatinine [Mass ratio] 17.9 mg/mg 10-20 [facility] Work Phone: Laboratory - Hematology and Cell countson 10-31-2021 Erythrocyte distribution width (RBC) [Entitic vol] 41.6 fL 35.1-43.9 [facility] Work Phone: Erythrocyte distribution width (RBC) [Ratio] 12.7 % 11.6-14.6 [facility] Work Phone: Immature granulocytes/100 WBC (Bld) 0.400 % 0.0-0.9 [facility] Work Phone: Comment on above: IG% - Immature Granu locytes (promyelocytes, myelocytes and metamyelocytes) > 1% indicates that a LEFT SHIFT is Present. MCH (RBC) [Entitic mass] 29.5 pg 27.0-32.0 [facility] Work Phone: Nucleated RBC/100 WBC (Bld) [Ratio] 0 % 0-5 [facility] Work Phone: MCHC Auto (RBC) [Mass/Vol]on 10-31-2021 MCHC (RBC) [Mass/Vol] 32.7 g/dL 32-36 [facility] Work Phone: No Panel Informationon 10-31 Estimated Creatinine Clearance Calc 48.53 ml/min [facility] Work Phone: Estimated GFR (MDRD) Amer 76 mL/min >60 [facility] Work Phone: Comment on above: GFR Calc Estimated GFR (MDRD) Non-Af Amer 63 mL/min >60 [facility] Work Phone: Comment on above: Non- GFR Calc SARS-CoV-2 Antigen (Rapid) [facility] Work Phone: Platelets bldon 10-31-2021 Platelets (Bld) [#/Vol] 275 10*3/uL 150-450 [facility] Work Phone: Serum or plasma calcium harley urement (mass/volume)on 10-31-2021 Calcium [Mass/Vol] 9.8 mg/dL 8.5-10.1 [facility] Work Phone: Comment on above: Slight Lipemia, Resu lt may be falsely increased. Serum or plasma creatinine m easurement (mass/volume)on 10-31-2021 Creatinine [Mass/Vol] 1.17 mg/dL 0.70-1.30 [facility] Work Phone: Comment on above: Slight Lipemia, Resu lt may be falsely increased.The validity of the calculated GFR & GFRAA in patients over 70 years has not been determined. Clinical correlation is essential. Serum or plasma urea nitroge n measurement (mass/volume)on 10-31-2021 Urea nitrogen [Mass/Vol] 21 mg/dL 7-18 [facility] Work Phone: Thin prep Papanicolaou smear with manual screeningon 10-31-2021 Thin prep Papanicolaou smear with manual screening 10 5-15 [facility] Work Phone: Bacteria identified Cx Nom ( U) Urine culture Culture exhibits no growth. [facility] Work Phone: Culture, urine Enterococcus faecalis [facility] Work Phone: Culture, urine Positive [facility] Work Phone: Culture, urine Bacteria identified Cx Nom (U) Enterococcus faecalis [facility] Work Phone: Bacteria identified Cx Nom (U) Culture exhibits no growth. [facility] Work Phone: Bacteria identified Cx Nom (U) Positive [facility] Work Phone: Gram stain for investigation of transfusion reaction Microscopic observation Gram stain Nom (Unsp spec) [facility] Work Phone: No Panel Information Streptococcus pneumoniae Antigen (M [facility] Work Phone: Vital Signs Date Time Vital Sign Value Performing Clinician Eladio philippe 05-31-2025 13:02-0400 Body height 172.[address] Riaz Valentine Work Phone: [facility] 05-31-2025 13:02-0400 Body mass index (BMI) [Ratio] 29.9 kg/m2 Dr. Riaz Garrison MD Work Phone: [facility] 05-31-2025 13:02-0400 Body weight 89.[address] Riaz Valentine Work Phone: [facility] 05-31-2025 13:02-0400 Diastolic blood pressure 63 mm[Hg] Dr. Riaz Garrison MD Work Phone: [facility] 05-31-2025 13:02-0400 Heart rate 53 /min Dr. Riaz Valentine Work Phone: [facility] 05-31-2025 13:02-0400 Respiratory rate 16 /min Dr. Riaz Valentine Work Phone: [facility] 05-31-2025 13:02-0400 Systolic blood pressure 148 mm[Hg] Dr. Riaz Garrison MD Work Phone: [facility] 05-19-2025 08:23-0400 Body mass index (BMI) [Ratio] 29.3 kg/m2 Dr. Riaz Garrison MD Work Phone: [facility] 05-19-2025 08:23-0400 Body temperature 96.6 [degF] Dr. Riaz Valentine Work Phone: [facility] 05-19-2025 08:23-0400 Body weight 87.[address] Riaz Valentine Work Phone: [facility] 05-19-2025 08:23-0400 Diastolic blood pressure 73 mm[Hg] Dr. Riaz Garrison MD Work Phone: [facility] 05-19-2025 08:23-0400 Heart rate 61 /min Dr. Riaz Valentine Work Phone: [facility] 05-19-2025 08:23-0400 Respiratory rate 18 /min Dr. Riaz Valentine Work Phone: [facility] 05-19-2025 08:23-0400 SaO2% (BldA) [Mass fraction] 96 % Dr. Riaz Garrison MD Work Phone: [facility] 05-19-2025 08:23-0400 Systolic blood pressure 137 mm[Hg] Dr. Riaz Garrison MD Work Phone: [facility] 05-03-2025 14:29-0400 Body height 172.[address] Riaz Valentine Work Phone: [facility] 05-03-2025 14:29-0400 Body mass index (BMI) [Ratio] 28.8 kg/m2 Dr. Riaz Garrison MD Work Phone: [facility] 05-03-2025 14:29-0400 Body weight 86.[address] Riaz Valentine Work Phone: [facility] 04-27-2025 08:40-0400 Body mass index (BMI) [Ratio] 29.8 kg/m2 Dr. Riaz Garrison MD Work Phone: [facility] 04-27-2025 08:40-0400 Body temperature 96.2 [degF] Dr. Riaz Valentine Work Phone: [facility] 04-27-2025 08:40-0400 Body weight 89.[address] Riaz Valentine Work Phone: [facility] 04-27-2025 08:40-0400 Diastolic blood pressure 80 mm[Hg] Dr. Riaz Garrison MD Work Phone: [facility] 04-27-2025 08:40-0400 Heart rate 62 /min Dr. Riaz Valentine Work Phone: [facility] 04-27-2025 08:40-0400 Respiratory rate 16 /min Dr. Riaz Valentine Work Phone: [facility] 04-27-2025 08:40-0400 SaO2% (BldA) [Mass fraction] 97 % Dr. Riaz Garrison MD Work Phone: [facility] 04-27-2025 08:40-0400 Systolic blood pressure 140 mm[Hg] Dr. Riaz Garrison MD Work Phone: [facility] 04-05-2025 11:28-0400 Body mass index (BMI) [Ratio] 29.9 kg/m2 Dr. Riaz Garrison MD Work Phone: [facility] 04-05-2025 11:28-0400 Body temperature 97.6 [degF] Dr. Riaz Valentine Work Phone: [facility] 04-05-2025 11:28-0400 Body weight 89.[address] Riaz Valentine Work Phone: [facility] 04-05-2025 11:28-0400 Diastolic blood pressure 74 mm[Hg] Dr. Riaz Garrison MD Work Phone: [facility] 04-05-2025 11:28-0400 Heart rate 62 /min Dr. Riaz Valentine Work Phone: [facility] 04-05-2025 11:28-0400 Respiratory rate 20 /min Dr. Riaz Valentine Work Phone: [facility] 04-05-2025 11:28-0400 SaO2% (BldA) [Mass fraction] 97 % Dr. Riaz Garrison MD Work Phone: [facility] 04-05-2025 11:28-0400 Systolic blood pressure 124 mm[Hg] Dr. Riaz Garrison MD Work Phone: [facility] 03-23-2025 10:36-0400 Diastolic blood pressure 74 mm[Hg] Darryl Mallory DO Work Phone: [facility] 03-23-2025 10:36-0400 Heart rate 65 /min Darryl Mallory DO Work Phone: [facility] 03-23-2025 10:36-0400 SaO2% (BldA) [Mass fraction] 99 % Darryl Mallory DO Work Phone: [facility] 03-23-2025 10:36-0400 Systolic blood pressure 138 mm[Hg] Darryl Mallory DO Work Phone: [facility] 03-23-2025 08:29-0400 Body mass index (BMI) [Ratio] 29.7 kg/m2 Dr. Riaz Garrison MD Work Phone: [facility] 03-23-2025 08:29-0400 Body temperature 97.4 [degF] Dr. Riaz Valentine Work Phone: [facility] 03-23-2025 08:29-0400 Body weight 88.[address] Riaz Valentine Work Phone: [facility] 03-23-2025 08:29-0400 Diastolic blood pressure 61 mm[Hg] Dr. Riaz Garrison MD Work Phone: [facility] 03-23-2025 08:29-0400 Heart rate 67 /min Dr. Riaz Valentine Work Phone: [facility] 03-23-2025 08:29-0400 Respiratory rate 22 /min Dr. Riaz Valentine Work Phone: [facility] 03-23-2025 08:29-0400 SaO2% (BldA) [Mass fraction] 99 % Dr. Riaz Garrison MD Work Phone: [facility] 03-23-2025 08:29-0400 Systolic blood pressure 121 mm[Hg] Dr. Riaz Garrison MD Work Phone: [facility] 03-19-2025 12:55-0400 Body height 172.[address] Riaz Valentine Work Phone: [facility] 03-19-2025 12:55-0400 Body mass index (BMI) [Ratio] 29.7 kg/m2 Dr. Riaz Garrison MD Work Phone: [facility] 03-19-2025 12:55-0400 Body weight 88.[address] Riaz Valentine Work Phone: [facility] 03-19-2025 12:55-0400 Diastolic blood pressure 66 mm[Hg] Dr. Riaz Garrison MD Work Phone: [facility] 03-19-2025 12:55-0400 Heart rate 82 /min Dr. Riaz Valentine Work Phone: [facility] 03-19-2025 12:55-0400 Respiratory rate 18 /min Dr. Riaz Valentine Work Phone: [facility] 03-19-2025 12:55-0400 Systolic blood pressure 129 mm[Hg] Dr. Riaz Garrison MD Work Phone: [facility] 03-15-2025 12:04-0400 Body mass index (BMI) [Ratio] 29.6 kg/m2 Dr. Riaz Garrison MD Work Phone: [facility] 03-15-2025 12:04-0400 Body temperature 97 [degF] Dr. Riaz Valentine Work Phone: [facility] 03-15-2025 12:04-0400 Body weight 88.[address] Riaz Valentine Work Phone: [facility] 03-15-2025 12:04-0400 Diastolic blood pressure 68 mm[Hg] Dr. Riaz Garrison MD Work Phone: [facility] 03-15-2025 12:04-0400 Heart rate 90 /min Dr. Riaz Valentine Work Phone: [facility] 03-15-2025 12:04-0400 Respiratory rate 16 /min Dr. Riaz Valentine Work Phone: [facility] 03-15-2025 12:04-0400 SaO2% (BldA) [Mass fraction] 93 % Dr. Riaz Garrison MD Work Phone: [facility] 03-15-2025 12:04-0400 Systolic blood pressure 118 mm[Hg] Dr. Riaz Garrison MD Work Phone: [facility] 03-12-2025 12:48-0400 Body mass index (BMI) [Ratio] 29.6 kg/m2 Dr. Riaz Garrison MD Work Phone: [facility] 03-12-2025 12:48-0400 Body temperature 97.8 [degF] Dr. Riaz Valentine Work Phone: [facility] 03-12-2025 12:48-0400 Body weight 88.[address] Riaz Valentine Work Phone: [facility] 03-12-2025 12:48-0400 Diastolic blood pressure 66 mm[Hg] Dr. Riaz Garrison MD Work Phone: [facility] 03-12-2025 12:48-0400 Heart rate 63 /min Dr. Riaz Valentine Work Phone: [facility] 03-12-2025 12:48-0400 Respiratory rate 18 /min Dr. Raiz Valentine Work Phone: [facility] 03-12-2025 12:48-0400 SaO2% (BldA) [Mass fraction] 97 % Dr. Riaz Garrison MD Work Phone: [facility] 03-12-2025 12:48-0400 Systolic blood pressure 130 mm[Hg] Dr. Riaz Garrison MD Work Phone: [facility] 03-09-2025 16:56-0400 Body temperature 98.6 [degF] Dr. Riaz Valentine Work Phone: [facility] 03-09-2025 16:56-0400 Diastolic blood pressure 80 mm[Hg] Dr. Riaz Garrison MD Work Phone: [facility] 03-09-2025 16:56-0400 Heart rate 69 /min Dr. Riaz Valentine Work Phone: [facility] 03-09-2025 16:56-0400 Respiratory rate 18 /min Dr. Riaz Valentine Work Phone: [facility] 03-09-2025 16:56-0400 SaO2% (BldA) [Mass fraction] 97 % Dr. Riaz Garrison MD Work Phone: [facility] 03-09-2025 16:56-0400 Systolic blood pressure 164 mm[Hg] Dr. Riaz Garrison MD Work Phone: [facility] 03-08-2025 10:48-0400 Body height 172.[address] Riaz Valentine Work Phone: [facility] 03-08-2025 10:48-0400 Body weight 86.[address] Riaz Valentine Work Phone: [facility] 03-04-2025 18:51-0400 Body mass index (BMI) [Ratio] 29 kg/m2 Dr. Riaz Garrison MD Work Phone: [facility] 03-04-2025 16:00-0400 Body temperature 97.8 [degF] Dr. Riaz Valentine Work Phone: [facility] 03-04-2025 16:00-0400 Diastolic blood pressure 64 mm[Hg] Dr. Riaz Garrison MD Work Phone: [facility] 03-04-2025 16:00-0400 Heart rate 63 /min Dr. Riaz Valentine Work Phone: [facility] 03-04-2025 16:00-0400 Respiratory rate 18 /min Dr. Riaz Valentine Work Phone: [facility] 03-04-2025 16:00-0400 SaO2% (BldA) [Mass fraction] 98 % Dr. Riaz Garrison MD Work Phone: [facility] 03-04-2025 16:00-0400 Systolic blood pressure 126 mm[Hg] Dr. Riaz Garrison MD Work Phone: [facility] 03-04-2025 12:47-0400 Body height 172.[address] Riaz Valentine Work Phone: [facility] 03-04-2025 11:55-0400 Body temperature 98.1 [degF] Dr. Riaz Valentine Work Phone: [facility] 03-04-2025 11:55-0400 Diastolic blood pressure 84 mm[Hg] Dr. Riaz Garrison MD Work Phone: [facility] 03-04-2025 11:55-0400 Heart rate 74 /min Dr. Riaz Valentine Work Phone: [facility] 03-04-2025 11:55-0400 Respiratory rate 17 /min Dr. Riaz Valentine Work Phone: [facility] 03-04-2025 11:55-0400 SaO2% (BldA) [Mass fraction] 95 % Dr. Riaz Garrison MD Work Phone: [facility] 03-04-2025 11:55-0400 Systolic blood pressure 140 mm[Hg] Dr. Riaz Garrison MD Work Phone: [facility] 02-22-2025 14:17-0400 Body temperature 97.2 [degF] Dr. Riaz Valentine Work Phone: [facility] 02-22-2025 14:17-0400 Diastolic blood pressure 65 mm[Hg] Dr. Riaz Garrison MD Work Phone: [facility] 02-22-2025 14:17-0400 Heart rate 76 /min Dr. Riaz Valentine Work Phone: [facility] 02-22-2025 14:17-0400 Respiratory rate 18 /min Dr. Riaz Valentine Work Phone: [facility] 02-22-2025 14:17-0400 SaO2% (BldA) [Mass fraction] 97 % Dr. Riaz Garrison MD Work Phone: [facility] 02-22-2025 14:17-0400 Systolic blood pressure 148 mm[Hg] Dr. Riaz Garrison MD Work Phone: [facility] 02-22-2025 08:52-0400 Body height 172.[address] Riaz Valentine Work Phone: [facility] 02-22-2025 08:52-0400 Body weight 90.[address] Riaz Valentine Work Phone: [facility] 02-20-2025 14:30-0400 Inhaled oxygen flow rate 2 L/min Dr. Riaz Garrison MD Work Phone: [facility] 02-19-2025 20:40-0400 Body mass index (BMI) [Ratio] 30.3 kg/m2 Dr. Riaz Garrison MD Work Phone: [facility] 02-19-2025 20:00-0400 Body temperature 98.4 [degF] Dr. Riaz Valentine Work Phone: [facility] 02-19-2025 20:00-0400 Diastolic blood pressure 74 mm[Hg] Dr. Riaz Garrison MD Work Phone: [facility] 02-19-2025 20:00-0400 Heart rate 73 /min Dr. Riaz Valentine Work Phone: [facility] 02-19-2025 20:00-0400 Respiratory rate 19 /min Dr. Riaz Valentine Work Phone: [facility] 02-19-2025 20:00-0400 SaO2% (BldA) [Mass fraction] 95 % Dr. Riaz Garrison MD Work Phone: [facility] 02-19-2025 20:00-0400 Systolic blood pressure 135 mm[Hg] Dr. Riaz Garrison MD Work Phone: [facility] 02-19-2025 15:53-0400 Body height 172.[address] Riaz Valentine Work Phone: [facility] 02-19-2025 15:53-0400 Body mass index (BMI) [Ratio] 30.9 kg/m2 Dr. Riaz Garrison MD Work Phone: [facility] 02-19-2025 15:53-0400 Body weight 92.[address] Riaz Valentine Work Phone: [facility] 02-18-2025 15:57-0400 Body temperature 98.1 [degF] Dr. Riaz Valentine Work Phone: [facility] 02-18-2025 15:57-0400 Diastolic blood pressure 71 mm[Hg] Dr. Riaz Garrison MD Work Phone: [facility] 02-18-2025 15:57-0400 Heart rate 71 /min Dr. Riaz Valentine Work Phone: [facility] 02-18-2025 15:57-0400 Respiratory rate 18 /min Dr. Riaz Valentine Work Phone: [facility] 02-18-2025 15:57-0400 SaO2% (BldA) [Mass fraction] 94 % Dr. Riaz Garrison MD Work Phone: [facility] 02-18-2025 15:57-0400 Systolic blood pressure 114 mm[Hg] Dr. Riaz Garrison MD Work Phone: [facility] 02-18-2025 04:41-0400 Body mass index (BMI) [Ratio] 30.1 kg/m2 Dr. Riaz Garrison MD Work Phone: [facility] 02-18-2025 04:41-0400 Body weight 89.[address] Riaz Valentine Work Phone: [facility] 02-15-2025 10:42-0400 Body height 172.[address] Riaz Valentine Work Phone: [facility] 02-15-2025 04:16-0400 Body temperature 98.1 [degF] Dr. Riaz Valentine Work Phone: [facility] 02-15-2025 04:16-0400 Diastolic blood pressure 101 mm[Hg] Dr. Riaz Garrison MD Work Phone: [facility] 02-15-2025 04:16-0400 Heart rate 90 /min Dr. Riaz Valentine Work Phone: [facility] 02-15-2025 04:16-0400 Respiratory rate 19 /min Dr. Riaz Valentine Work Phone: [facility] 02-15-2025 04:16-0400 SaO2% (BldA) [Mass fraction] 96 % Dr. Riaz Garrison MD Work Phone: [facility] 02-15-2025 04:16-0400 Systolic blood pressure 150 mm[Hg] Dr. Riaz Garrison MD Work Phone: [facility] 02-15-2025 02:58-0400 Body height 172.[address] Riaz Valentine Work Phone: [facility] 02-15-2025 02:58-0400 Body mass index (BMI) [Ratio] 32.7 kg/m2 Dr. Riaz Garrison MD Work Phone: [facility] 02-15-2025 02:58-0400 Body weight 97.[address] Riaz Valentine Work Phone: [facility] 02-09-2025 11:46-0400 Diastolic blood pressure 62 mm[Hg] Darryl Mallory DO Work Phone: [facility] 02-09-2025 11:46-0400 Heart rate 67 /min Darryl Mallory DO Work Phone: [facility] 02-09-2025 11:46-0400 SaO2% (BldA) [Mass fraction] 96 % Darryl Mallory DO Work Phone: [facility] 02-09-2025 11:46-0400 Systolic blood pressure 131 mm[Hg] Darryl Mallory DO Work Phone: [facility] 02-04-2025 13:51-0400 Body height 167.[address] Riaz Valentine Work Phone: [facility] 02-04-2025 13:51-0400 Body mass index (BMI) [Ratio] 34 kg/m2 Dr. Riaz Garrison MD Work Phone: [facility] 02-04-2025 13:51-0400 Body weight 95.[address] Riaz Valentine Work Phone: [facility] 02-04-2025 13:51-0400 Diastolic blood pressure 83 mm[Hg] Dr. Riaz Garrison MD Work Phone: [facility] 02-04-2025 13:51-0400 Heart rate 83 /min Dr. Riaz Valentine Work Phone: [facility] 02-04-2025 13:51-0400 Respiratory rate 18 /min Dr. Riaz Valentine Work Phone: [facility] 02-04-2025 13:51-0400 Systolic blood pressure 148 mm[Hg] Dr. Riaz Garrison MD Work Phone: [facility] 02-01-2025 10:53-0400 Body mass index (BMI) [Ratio] 33.3 kg/m2 Dr. Riaz Garrison MD Work Phone: [facility] 02-01-2025 10:53-0400 Body temperature 96.2 [degF] Dr. Riaz Valentine Work Phone: [facility] 02-01-2025 10:53-0400 Body weight 93.[address] Riaz Valentine Work Phone: [facility] 02-01-2025 10:53-0400 Diastolic blood pressure 74 mm[Hg] Dr. Riaz Garrison MD Work Phone: [facility] 02-01-2025 10:53-0400 Heart rate 65 /min Dr. Riaz Valentine Work Phone: [facility] 02-01-2025 10:53-0400 Respiratory rate 16 /min Dr. Riaz Vlaentine Work Phone: [facility] 02-01-2025 10:53-0400 SaO2% (BldA) [Mass fraction] 97 % Dr. Riaz Garrison MD Work Phone: [facility] 02-01-2025 10:53-0400 Systolic blood pressure 148 mm[Hg] Dr. Riaz Garrison MD Work Phone: [facility] 01-29-2025 19:33-0400 Body temperature 97.4 [degF] Dr. Riaz Valentine Work Phone: [facility] 01-29-2025 19:33-0400 Diastolic blood pressure 67 mm[Hg] Dr. Riaz Garrison MD Work Phone: [facility] 01-29-2025 19:33-0400 Heart rate 69 /min Dr. Riaz Valentine Work Phone: [facility] 01-29-2025 19:33-0400 Respiratory rate 13 /min Dr. Riaz Valentine Work Phone: [facility] 01-29-2025 19:33-0400 SaO2% (BldA) [Mass fraction] 97 % Dr. Riaz Garrison MD Work Phone: [facility] 01-29-2025 19:33-0400 Systolic blood pressure 166 mm[Hg] Dr. Riaz Garrison MD Work Phone: [facility] 01-29-2025 14:09-0400 Body height 167.[address] Riaz Valentine Work Phone: [facility] 01-29-2025 14:09-0400 Body mass index (BMI) [Ratio] 32.4 kg/m2 Dr. Riaz Garrison MD Work Phone: [facility] 01-29-2025 14:09-0400 Body weight 91.[address] Riaz Valentine Work Phone: [facility] 01-06-2025 15:06-0400 Body mass index (BMI) [Ratio] 32.5 kg/m2 Dr. Riaz Garrison MD Work Phone: [facility] 01-06-2025 15:06-0400 Body temperature 96.9 [degF] Dr. Riaz Valentine Work Phone: [facility] 01-06-2025 15:06-0400 Body weight 91.[address] Riaz Valentine Work Phone: [facility] 01-06-2025 15:06-0400 Diastolic blood pressure 58 mm[Hg] Dr. Riaz Garrison MD Work Phone: [facility] 01-06-2025 15:06-0400 Heart rate 75 /min Dr. Riaz Valentine Work Phone: [facility] 01-06-2025 15:06-0400 Respiratory rate 16 /min Dr. Riaz Valentine Work Phone: [facility] 01-06-2025 15:06-0400 SaO2% (BldA) [Mass fraction] 97 % Dr. Riaz Garrison MD Work Phone: [facility] 01-06-2025 15:06-0400 Systolic blood pressure 118 mm[Hg] Dr. Riaz Garrison MD Work Phone: [facility] 01-01-2025 08:20-0400 Body mass index (BMI) [Ratio] 32.8 kg/m2 Dr. Riaz Garrison MD Work Phone: [facility] 01-01-2025 08:20-0400 Body temperature 97.1 [degF] Dr. Riaz Valentine Work Phone: [facility] 01-01-2025 08:20-0400 Body weight 92.[address] Riaz Valentine Work Phone: [facility] 01-01-2025 08:20-0400 Diastolic blood pressure 72 mm[Hg] Dr. Riaz Garrison MD Work Phone: [facility] 01-01-2025 08:20-0400 Heart rate 67 /min Dr. Riaz Valentine Work Phone: [facility] 01-01-2025 08:20-0400 Respiratory rate 20 /min Dr. Riaz Valentine Work Phone: [facility] 01-01-2025 08:20-0400 SaO2% (BldA) [Mass fraction] 98 % Dr. Riaz Garrison MD Work Phone: [facility] 01-01-2025 08:20-0400 Systolic blood pressure 149 mm[Hg] Dr. Riaz Garrison MD Work Phone: [facility] 12-28-2024 08:35-0400 Body height 167.[address] Riaz Valentine Work Phone: [facility] 12-28-2024 08:35-0400 Body mass index (BMI) [Ratio] 32.9 kg/m2 Dr. Riaz Garrison MD Work Phone: [facility] 12-28-2024 08:35-0400 Body temperature 98 [degF] Dr. Riaz Valentine Work Phone: [facility] 12-28-2024 08:35-0400 Body weight 92.[address] Riaz Valentine Work Phone: [facility] 12-28-2024 08:35-0400 Diastolic blood pressure 84 mm[Hg] Dr. Riaz Garrison MD Work Phone: [facility] 12-28-2024 08:35-0400 Heart rate 92 /min Dr. Riaz Valentine Work Phone: [facility] 12-28-2024 08:35-0400 Respiratory rate 18 /min Dr. Riaz Valentine Work Phone: [facility] 12-28-2024 08:35-0400 SaO2% (BldA) [Mass fraction] 98 % Dr. Riaz Garrison MD Work Phone: [facility] 12-28-2024 08:35-0400 Systolic blood pressure 148 mm[Hg] Dr. Riaz Garrison MD Work Phone: [facility] 12-17-2024 13:45-0400 Body temperature 97.4 [degF] Dr. Riaz Valentine Work Phone: [facility] 12-17-2024 13:45-0400 Diastolic blood pressure 86 mm[Hg] Dr. Riaz Garrison MD Work Phone: [facility] 12-17-2024 13:45-0400 Heart rate 72 /min Dr. Riaz Valentine Work Phone: [facility] 12-17-2024 13:45-0400 Respiratory rate 20 /min Dr. Riaz Valentine Work Phone: [facility] 12-17-2024 13:45-0400 SaO2% (BldA) [Mass fraction] 93 % Dr. Riaz Garrison MD Work Phone: [facility] 12-17-2024 13:45-0400 Systolic blood pressure 139 mm[Hg] Dr. Riaz Garrison MD Work Phone: [facility] 12-17-2024 08:30-0400 Inhaled oxygen flow rate 2 L/min Dr. Riaz Garrison MD Work Phone: [facility] 12-14-2024 15:29-0400 Body weight 92.[address] Riaz Valentine Work Phone: [facility] 12-14-2024 12:33-0400 Body height 167.[address] Riaz Valentine Work Phone: [facility] 12-14-2024 12:33-0400 Body mass index (BMI) [Ratio] 33 kg/m2 Dr. Riaz Garrison MD Work Phone: [facility] 12-14-2024 12:33-0400 Body weight 92.[address] Riaz Valentine Work Phone: [facility] 12-14-2024 12:33-0400 Inhaled oxygen flow rate 2 L/min Dr. Riaz Garrison MD Work Phone: [facility] 12-14-2024 12:33-0400 Respiratory rate 18 /min Dr. Riaz Valentine Work Phone: [facility] 12-14-2024 11:47-0400 Body temperature 98.2 [degF] Dr. Riza Valentine Work Phone: [facility] 12-14-2024 11:47-0400 Diastolic blood pressure 81 mm[Hg] Dr. Riaz Garrison MD Work Phone: [facility] 12-14-2024 11:47-0400 Heart rate 78 /min Dr. Riaz Valentine Work Phone: [facility] 12-14-2024 11:47-0400 SaO2% (BldA) [Mass fraction] 95 % Dr. Riaz Garrison MD Work Phone: [facility] 12-14-2024 11:47-0400 Systolic blood pressure 169 mm[Hg] Dr. Riaz Garrison MD Work Phone: [facility] 11-30-2024 14:14-0500 Body mass index (BMI) [Ratio] 40 kg/m2 Dr. Riaz Garrison MD Work Phone: [facility] 11-30-2024 14:14-0500 Body weight 92.[address] Riaz Valentine Work Phone: [facility] 11-30-2024 14:14-0500 Diastolic blood pressure 68 mm[Hg] Dr. Riaz Garrison MD Work Phone: [facility] 11-30-2024 14:14-0500 Heart rate 74 /min Dr. Riaz Valentine Work Phone: [facility] 11-30-2024 14:14-0500 Respiratory rate 18 /min Dr. Riaz Valentine Work Phone: [facility] 11-30-2024 14:14-0500 SaO2% (BldA) [Mass fraction] 96 % Dr. Riaz Garrison MD Work Phone: [facility] 11-30-2024 14:14-0500 Systolic blood pressure 142 mm[Hg] Dr. Riaz Garrison MD Work Phone: [facility] 10-06-2024 12:01-0500 Body mass index (BMI) [Ratio] 39.6 kg/m2 Dr. Riaz Garrison MD Work Phone: [facility] 10-06-2024 12:01-0500 Body temperature 97.2 [degF] Dr. Riaz Valentine Work Phone: [facility] 10-06-2024 12:01-0500 Body weight 92.[address] Riaz Valentine Work Phone: [facility] 10-06-2024 12:01-0500 Diastolic blood pressure 73 mm[Hg] Dr. Riaz Garrison MD Work Phone: [facility] 10-06-2024 12:01-0500 Heart rate 76 /min Dr. Riaz Valentine Work Phone: [facility] 10-06-2024 12:01-0500 Respiratory rate 18 /min Dr. Riaz Valentine Work Phone: [facility] 10-06-2024 12:01-0500 SaO2% (BldA) [Mass fraction] 99 % Dr. Riaz Garrison MD Work Phone: [facility] 10-06-2024 12:01-0500 Systolic blood pressure 157 mm[Hg] Dr. Riaz Garrison MD Work Phone: [facility] 08-24-2024 13:59-0500 Body mass index (BMI) [Ratio] 38.9 kg/m2 Dr. Riaz Garrison MD Work Phone: [facility] 08-24-2024 13:59-0500 Body temperature 97.7 [degF] Dr. Riaz Valentine Work Phone: [facility] 08-24-2024 13:59-0500 Body weight 90.[address] Riaz Valentine Work Phone: [facility] 08-24-2024 13:59-0500 Diastolic blood pressure 68 mm[Hg] Dr. Riaz Garrison MD Work Phone: [facility] 08-24-2024 13:59-0500 Heart rate 60 /min Dr. Riaz Valentine Work Phone: [facility] 08-24-2024 13:59-0500 Respiratory rate 16 /min Dr. Riaz Valentine Work Phone: [facility] 08-24-2024 13:59-0500 SaO2% (BldA) [Mass fraction] 99 % Dr. Riaz Garrison MD Work Phone: [facility] 08-24-2024 13:59-0500 Systolic blood pressure 120 mm[Hg] Dr. Riaz Garrison MD Work Phone: [facility] 03-05-2024 12:20-0400 Diastolic blood pressure 70 mm[Hg] Josemanuel Kim MD Work Phone: [facility] 03-05-2024 12:20-0400 Respiratory rate 16 /min Josemanuel Kim MD Work Phone: [facility] 03-05-2024 12:20-0400 SaO2% (BldA) [Mass fraction] 96 % Josemanuel Kim MD Work Phone: [facility] 03-05-2024 12:20-0400 Systolic blood pressure 133 mm[Hg] Josemanuel Kim MD Work Phone: [facility] 03-05-2024 11:50-0400 Body temperature 98.1 [degF] Josemanuel Kim MD Work Phone: [facility] 03-05-2024 11:50-0400 Heart rate 74 /min Josemanuel Kim MD Work Phone: [facility] 03-05-2024 09:47-0400 Body height 172.7 cm Josemanuel Kim MD Work Phone: [facility] 03-05-2024 09:47-0400 Body mass index (BMI) [Ratio] 28.89 kg/m2 Josemanuel Kim MD Work Phone: [facility] 03-05-2024 09:47-0400 Body weight 86.18 kg Josemanuel Kim MD Work Phone: [facility] 02-26-2024 10:30-0400 Body height 172.7 cm Josemanuel Kim MD Work Phone: [facility] 02-26-2024 10:30-0400 Body mass index (BMI) [Ratio] 28.89 kg/m2 Josemanuel Kim MD Work Phone: [facility] 02-26-2024 10:30-0400 Body weight 86.18 kg Josemanuel Kim MD Work Phone: [facility] 02-26-2024 10:30-0400 Diastolic blood pressure 72 mm[Hg] Josemanuel Kim MD Work Phone: [facility] 02-26-2024 10:30-0400 Heart rate 72 /min Josemanuel Kim MD Work Phone: [facility] 02-26-2024 10:30-0400 Systolic blood pressure 117 mm[Hg] Josemanuel Kim MD Work Phone: [facility] 02-13-2024 13:48-0400 Body temperature 97.9 [degF] Dr. Riaz Garrison Work Phone: [facility] 02-13-2024 13:48-0400 Diastolic blood pressure 55 mm[Hg] Dr. Riaz Garrison Work Phone: [facility] 02-13-2024 13:48-0400 Heart rate 60 /min Dr. Riaz Garrison Work Phone: [facility] 02-13-2024 13:48-0400 Respiratory rate 16 /min Dr. Riaz Garrison Work Phone: [facility] 02-13-2024 13:48-0400 SaO2% (BldA) [Mass fraction] 97 % Dr. Riaz Garrison Work Phone: [facility] 02-13-2024 13:48-0400 Systolic blood pressure 136 mm[Hg] Dr. Riaz Garrison Work Phone: [facility] 02-13-2024 11:23-0400 Body height 172.[address] Riaz Garrison Work Phone: [facility] 02-13-2024 11:23-0400 Body mass index (BMI) [Ratio] 33.4 kg/m2 Dr. Riaz Garrison Work Phone: [facility] 02-13-2024 11:23-0400 Body weight 99.[address] Riaz Garrison Work Phone: [facility] 02-12-2024 08:29-0400 Body mass index (BMI) [Ratio] 33.9 kg/m2 Dr. Riaz Garrison Work Phone: [facility] 02-12-2024 08:29-0400 Body weight 101.[address] Riaz Garrison Work Phone: [facility] 02-12-2024 08:29-0400 Diastolic blood pressure 66 mm[Hg] Dr. Riaz Garrison Work Phone: [facility] 02-12-2024 08:29-0400 Heart rate 74 /min Dr. Riaz Garrison Work Phone: [facility] 02-12-2024 08:29-0400 Respiratory rate 18 /min Dr. Riaz Garrison Work Phone: [facility] 02-12-2024 08:29-0400 SaO2% (BldA) [Mass fraction] 95 % Dr. Riaz Garrison Work Phone: [facility] 02-12-2024 08:29-0400 Systolic blood pressure 125 mm[Hg] Dr. Riaz Garrison Work Phone: [facility] 02-11-2024 15:07-0400 Body temperature 96.9 [degF] Dr. Riaz Garrison Work Phone: [facility] 02-11-2024 15:07-0400 Diastolic blood pressure 74 mm[Hg] Dr. Riaz Garrison Work Phone: [facility] 02-11-2024 15:07-0400 Heart rate 63 /min Dr. Riaz Garrison Work Phone: [facility] 02-11-2024 15:07-0400 Respiratory rate 20 /min Dr. Riaz Garrison Work Phone: [facility] 02-11-2024 15:07-0400 SaO2% (BldA) [Mass fraction] 96 % Dr. Riaz Garrison Work Phone: [facility] 02-11-2024 15:07-0400 Systolic blood pressure 142 mm[Hg] Dr. Riaz Garrison Work Phone: [facility] 02-11-2024 10:32-0400 Body height 172.[address] Riaz Garrison Work Phone: [facility] 02-11-2024 10:32-0400 Body mass index (BMI) [Ratio] 33.4 kg/m2 Dr. Riaz Garrison Work Phone: [facility] 02-11-2024 10:32-0400 Body weight 99.[address] Riaz Garrison Work Phone: [facility] 02-05-2024 09:05-0400 Body height 172.[address] Riaz Garrison Work Phone: [facility] 02-05-2024 09:05-0400 Body mass index (BMI) [Ratio] 32.5 kg/m2 Dr. Riaz Garrison Work Phone: [facility] 02-05-2024 09:05-0400 Body temperature 97.6 [degF] Dr. Riaz Garrison Work Phone: [facility] 02-05-2024 09:05-0400 Body weight 97.[address] Riaz Garrison Work Phone: [facility] 02-05-2024 09:05-0400 Diastolic blood pressure 66 mm[Hg] Dr. Riaz Garrison Work Phone: [facility] 02-05-2024 09:05-0400 Heart rate 70 /min Dr. Riaz Garrison Work Phone: [facility] 02-05-2024 09:05-0400 Respiratory rate 20 /min Dr. Riaz Garrison Work Phone: [facility] 02-05-2024 09:05-0400 SaO2% (BldA) [Mass fraction] 99 % Dr. Riaz Garrison Work Phone: [facility] 02-05-2024 09:05-0400 Systolic blood pressure 114 mm[Hg] Dr. Riaz Garrison Work Phone: [facility] 01-29-2024 14:18-0400 Body temperature 97.7 [degF] Dr. Riaz Garrison Work Phone: [facility] 01-29-2024 14:18-0400 Diastolic blood pressure 71 mm[Hg] Dr. Riaz Garrison Work Phone: [facility] 01-29-2024 14:18-0400 Heart rate 70 /min Dr. Riaz Garrisno Work Phone: [facility] 01-29-2024 14:18-0400 Respiratory rate 20 /min Dr. Riaz Garrison Work Phone: [facility] 01-29-2024 14:18-0400 SaO2% (BldA) [Mass fraction] 94 % Dr. Riaz Garrison Work Phone: [facility] 01-29-2024 14:18-0400 Systolic blood pressure 133 mm[Hg] Dr. Riaz Garrison Work Phone: [facility] 01-29-2024 08:10-0400 Inhaled oxygen flow rate 2 L/min Dr. Riaz Garrison Work Phone: [facility] 01-28-2024 05:52-0400 Body weight 96.[address] Riaz Garrison Work Phone: [facility] 01-27-2024 14:30-0400 Body height 172.[address] Riaz Garrison Work Phone: [facility] 01-26-2024 17:28-0400 Body mass index (BMI) [Ratio] 33.2 kg/m2 Dr. Riaz Garrison Work Phone: [facility] 01-26-2024 16:22-0400 Body temperature 98.5 [degF] Dr. Riaz Garrison Work Phone: [facility] 01-26-2024 16:22-0400 Diastolic blood pressure 74 mm[Hg] Dr. Riaz Garrison Work Phone: [facility] 01-26-2024 16:22-0400 Heart rate 72 /min Dr. Riaz Garrison Work Phone: [facility] 01-26-2024 16:22-0400 Respiratory rate 18 /min Dr. Riaz Garrison Work Phone: [facility] 01-26-2024 16:22-0400 SaO2% (BldA) [Mass fraction] 95 % Dr. Riaz Garrison Work Phone: [facility] 01-26-2024 16:22-0400 Systolic blood pressure 146 mm[Hg] Dr. Riaz Garrison Work Phone: [facility] 01-26-2024 13:10-0400 Body height 172.[address] Riaz Garrison Work Phone: [facility] 01-26-2024 13:10-0400 Body mass index (BMI) [Ratio] 33.2 kg/m2 Dr. Riaz Garrison Work Phone: [facility] 01-26-2024 13:10-0400 Body weight 99.[address] Riaz Garrison Work Phone: [facility] 01-20-2024 13:27-0400 Body height 172.[address] Riaz Garrison Work Phone: [facility] 01-20-2024 13:27-0400 Body mass index (BMI) [Ratio] 31.9 kg/m2 Dr. Riaz Garrison Work Phone: [facility] 01-20-2024 13:27-0400 Body temperature 97.2 [degF] Dr. Riaz Garrison Work Phone: [facility] 01-20-2024 13:27-0400 Body weight 95.[address] Riaz Garrison Work Phone: [facility] 01-20-2024 13:27-0400 Diastolic blood pressure 66 mm[Hg] Dr. Riaz Garrison Work Phone: [facility] 01-20-2024 13:27-0400 Heart rate 80 /min Dr. Riaz Garrison Work Phone: [facility] 01-20-2024 13:27-0400 Respiratory rate 17 /min Dr. Riaz Garrison Work Phone: [facility] 01-20-2024 13:27-0400 SaO2% (BldA) [Mass fraction] 99 % Dr. Riaz Garrison Work Phone: [facility] 01-20-2024 13:27-0400 Systolic blood pressure 118 mm[Hg] Dr. Riaz Garrison Work Phone: [facility] 01-02-2024 13:07-0400 Body height 172.[address] Rosa Collins Work Phone: [facility] 01-02-2024 13:07-0400 Body mass index (BMI) [Ratio] 31.9 kg/m2 Dr. Rosa Collins Work Phone: [facility] 01-02-2024 13:07-0400 Body temperature 97.2 [degF] Dr. Rosa Collins Work Phone: [facility] 01-02-2024 13:07-0400 Body weight 95.[address] Rosa Collins Work Phone: [facility] 01-02-2024 13:07-0400 Diastolic blood pressure 68 mm[Hg] Dr. Rosa Collins Work Phone: [facility] 01-02-2024 13:07-0400 Heart rate 87 /min Dr. Rosa Collins Work Phone: [facility] 01-02-2024 13:07-0400 Respiratory rate 20 /min Dr. Rosa Collins Work Phone: [facility] 01-02-2024 13:07-0400 SaO2% (BldA) [Mass fraction] 97 % Dr. Rosa Collins Work Phone: 6(656)367-571182 [address] 01-02-2024 13:07-0400 Systolic blood pressure 148 mm[Hg] Dr. Rosa Collins Work Phone: 5(110)708-453759 [place] [address] 01-01-2024 07:49-0400 Body height 172.[address] Rosa Collins Work Phone: 4(902)951-339659 [place] [address] 01-01-2024 07:49-0400 Body mass index (BMI) [Ratio] 32.1 kg/m2 Dr. Rosa Collins Work Phone: 7(302)934-452659 [place] [address] 01-01-2024 07:49-0400 Body temperature 97.5 [degF] Dr. Rosa Collins Work Phone: 1(204)562-575059 [place] [address] 01-01-2024 07:49-0400 Body weight 95.[address] Rosa Collins Work Phone: 3(808)100-233059 [place] [address] 01-01-2024 07:49-0400 Diastolic blood pressure 78 mm[Hg] Dr. Rosa Collins Work Phone: 0(461)212-533459 [place] [address] 01-01-2024 07:49-0400 Heart rate 75 /min Dr. Rosa Collins Work Phone: 6(200)081-413359 [place] [address] 01-01-2024 07:49-0400 Respiratory rate 20 /min Dr. Rosa Collins Work Phone: 7(461)029-140059 [place] [address] 01-01-2024 07:49-0400 SaO2% (BldA) [Mass fraction] 97 % Dr. Rosa Collins Work Phone: 7(983)177-571659 [place] [address] 01-01-2024 07:49-0400 Systolic blood pressure 138 mm[Hg] Dr. Rosa Collins Work Phone: 3(296)528-775059 [place] [address] 12-26-2023 11:14-0400 Body mass index (BMI) [Ratio] 31.6 kg/m2 Dr. Rosa Collins Work Phone: 9(374)299-654359 [place] [address] 12-26-2023 11:14-0400 Body weight 94.[address] Rosa Collins Work Phone: [facility] 12-26-2023 11:14-0400 Diastolic blood pressure 54 mm[Hg] Dr. Rosa Collins Work Phone: 6(892)656-959048 [place] [address] 12-26-2023 11:14-0400 Heart rate 64 /min Dr. Rosa Collins Work Phone: 2(249)316-751482 [address] 12-26-2023 11:14-0400 Respiratory rate 20 /min Dr. Rosa Collins Work Phone: 1(554)865-188448 [address] [place] [address] 12-26-2023 11:14-0400 SaO2% (BldA) [Mass fraction] 96 % Dr. Rosa Collins Work Phone: 5(349)312-506059 [place] [address] 12-26-2023 11:14-0400 Systolic blood pressure 104 mm[Hg] Dr. Rosa Collins Work Phone: 1(717)989-359682 [address] 12-25-2023 04:02-0400 Diastolic blood pressure 109 mm[Hg] Dr. Rosa Collins Work Phone: 2(889)710-819359 [place] [address] 12-25-2023 04:02-0400 Heart rate 71 /min Dr. Rosa Collins Work Phone: 1(465)727-197359 [place] [address] 12-25-2023 04:02-0400 Respiratory rate 18 /min Dr. Rosa Collins Work Phone: 6(692)283-419448 [place] [address] 12-25-2023 04:02-0400 SaO2% (BldA) [Mass fraction] 95 % Dr. Rosa Collins Work Phone: 3(863)600-588248 [place] [address] 12-25-2023 04:02-0400 Systolic blood pressure 149 mm[Hg] Dr. Rosa Collins Work Phone: 0(493)283-221682 [address] 12-25-2023 02:02-0400 Body height 172.[address] Rosa Collins Work Phone: 2(767)987-109248 [place] [address] 12-25-2023 02:02-0400 Body mass index (BMI) [Ratio] 31.4 kg/m2 Dr. Rosa Collins Work Phone: [facility] 12-25-2023 02:02-0400 Body temperature 98.2 [degF] Dr. Rosa Collins Work Phone: 7(835)850-244248 [place] [address] 12-25-2023 02:02-0400 Body weight 93.[address] Rosa Collins Work Phone: 4(844)944-490348 [place] [address] 12-16-2023 14:55-0400 Diastolic blood pressure 70 mm[Hg] Dr. Rosa Collins Work Phone: 5(942)300-978159 [place] [address] 12-16-2023 14:55-0400 Systolic blood pressure 112 mm[Hg] Dr. Rosa Collins Work Phone: 9(706)372-457559 [place] [address] 12-12-2023 11:29-0500 Body height 172.[address] Rosa Collins Work Phone: 4(853)501-530359 [place] [address] 12-12-2023 11:29-0500 Body mass index (BMI) [Ratio] 31.6 kg/m2 Dr. Rosa Collins Work Phone: 8(638)416-358248 [place] [address] 12-12-2023 11:29-0500 Body temperature 98.9 [degF] Dr. Rosa Collins Work Phone: 0(181)991-044448 [place] [address] 12-12-2023 11:29-0500 Body weight 94.[address] Rosa Collins Work Phone: 6(064)719-745848 [place] [address] 12-12-2023 11:29-0500 Diastolic blood pressure 72 mm[Hg] Dr. Rosa Collins Work Phone: 7(138)422-486848 [place] [address] 12-12-2023 11:29-0500 Heart rate 68 /min Dr. Rosa Collins Work Phone: 4(086)475-871048 [place] [address] 12-12-2023 11:29-0500 Respiratory rate 16 /min Dr. Rosa Collins Work Phone: 8(054)631-453648 [place] [address] 12-12-2023 11:29-0500 SaO2% (BldA) [Mass fraction] 99 % Dr. Rosa Collins Work Phone: [facility] 12-12-2023 11:29-0500 Systolic blood pressure 130 mm[Hg] Dr. Rosa Collins Work Phone: [facility] 12-12-2023 09:14-0500 Diastolic blood pressure 66 mm[Hg] Rene Zapata MD Work Phone: [facility] 12-12-2023 09:14-0500 Heart rate 65 /min Rene Zapata MD Work Phone: [facility] 12-12-2023 09:14-0500 SaO2% (BldA) [Mass fraction] 99 % Rene Zapata MD Work Phone: [facility] 12-12-2023 09:14-0500 Systolic blood pressure 135 mm[Hg] Rene Zapata MD Work Phone: [facility] 12-02-2023 16:03-0500 Body temperature 98.3 [degF] Dr. Rosa Collins Work Phone: [facility] 12-02-2023 16:03-0500 Diastolic blood pressure 94 mm[Hg] Dr. Rosa Collins Work Phone: [facility] 12-02-2023 16:03-0500 Heart rate 76 /min Dr. Rosa Collins Work Phone: [facility] 12-02-2023 16:03-0500 Respiratory rate 23 /min Dr. Rosa Collins Work Phone: [facility] 12-02-2023 16:03-0500 SaO2% (BldA) [Mass fraction] 96 % Dr. Rosa Collins Work Phone: [facility] 12-02-2023 16:03-0500 Systolic blood pressure 135 mm[Hg] Dr. Rosa Collins Work Phone: [facility] 12-02-2023 15:04-0500 Inhaled oxygen flow rate 2 L/min Dr. Rosa Collins Work Phone: [facility] 12-02-2023 10:41-0500 Body mass index (BMI) [Ratio] 31.2 kg/m2 Dr. Rosa Collins Work Phone: [facility] 12-02-2023 10:41-0500 Body weight 93.[address] Rosa Collins Work Phone: [facility] 11-25-2023 11:15-0500 Body height 172.7 cm Rene Zapata MD Work Phone: [facility] 11-25-2023 11:15-0500 Body weight 88.45 kg Rene Zapata MD Work Phone: [facility] 11-25-2023 11:15-0500 Diastolic blood pressure 66 mm[Hg] Rene Zapata MD Work Phone: [facility] 11-25-2023 11:15-0500 Heart rate 62 /min Rene Zapata MD Work Phone: [facility] 11-25-2023 11:15-0500 Respiratory rate 16 /min Rene Zapata MD Work Phone: [facility] 11-25-2023 11:15-0500 Systolic blood pressure 124 mm[Hg] Rene Zapata MD Work Phone: [facility] 10-23-2023 07:59-0500 Body mass index (BMI) [Ratio] 29.9 kg/m2 Dr. Rosa Collins Work Phone: [facility] 10-23-2023 07:59-0500 Body temperature 97.2 [degF] Dr. Rosa Collins Work Phone: [facility] 10-23-2023 07:59-0500 Body weight 89.[address] Rosa Collins Work Phone: [facility] 10-23-2023 07:59-0500 Diastolic blood pressure 62 mm[Hg] Dr. Rosa Collins Work Phone: [facility] 10-23-2023 07:59-0500 Heart rate 58 /min Dr. Rosa Collins Work Phone: [facility] 10-23-2023 07:59-0500 Respiratory rate 18 /min Dr. Rosa Collins Work Phone: [facility] 10-23-2023 07:59-0500 SaO2% (BldA) [Mass fraction] 95 % Dr. Rosa Collins Work Phone: [facility] 10-23-2023 07:59-0500 Systolic blood pressure 144 mm[Hg] Dr. Rosa Collins Work Phone: [facility] 10-15-2023 15:58-0500 Body height 172.[address] Riaz Garrison Work Phone: [facility] 10-15-2023 15:58-0500 Body mass index (BMI) [Ratio] 30.9 kg/m2 Dr. Riaz Garrison Work Phone: [facility] 10-15-2023 15:58-0500 Body temperature 97.8 [degF] Dr. Riaz Garrison Work Phone: [facility] 10-15-2023 15:58-0500 Body weight 92.[address] Riaz Garrison Work Phone: [facility] 10-15-2023 15:58-0500 Diastolic blood pressure 80 mm[Hg] Dr. Raiz Garrison Work Phone: [facility] 10-15-2023 15:58-0500 Heart rate 59 /min Dr. Riaz Garrison Work Phone: [facility] 10-15-2023 15:58-0500 Respiratory rate 20 /min Dr. Riaz Garrison Work Phone: [facility] 10-15-2023 15:58-0500 SaO2% (BldA) [Mass fraction] 95 % Dr. Riaz Garrison Work Phone: [facility] 10-15-2023 15:58-0500 Systolic blood pressure 130 mm[Hg] Dr. Riaz Garrison Work Phone: [facility] 09-16-2023 13:27-0500 Body height 172.[address] Riaz Garrison Work Phone: [facility] 09-16-2023 13:27-0500 Body mass index (BMI) [Ratio] 30.2 kg/m2 Dr. Riaz Garrison Work Phone: [facility] 09-16-2023 13:27-0500 Body temperature 98 [degF] Dr. Riaz Garrison Work Phone: [facility] 09-16-2023 13:27-0500 Body weight 90.[address] Riaz Garrison Work Phone: [facility] 09-16-2023 13:27-0500 Diastolic blood pressure 72 mm[Hg] Dr. Riaz Garrison Work Phone: [facility] 09-16-2023 13:27-0500 Heart rate 57 /min Dr. Riaz Garrison Work Phone: [facility] 09-16-2023 13:27-0500 Respiratory rate 14 /min Dr. Riaz Garrison Work Phone: [facility] 09-16-2023 13:27-0500 SaO2% (BldA) [Mass fraction] 97 % Dr. Riaz Garrison Work Phone: [facility] 09-16-2023 13:27-0500 Systolic blood pressure 132 mm[Hg] Dr. Riaz Garrison Work Phone: [facility] 09-13-2023 13:01-0500 Body mass index (BMI) [Ratio] 29.8 kg/m2 Dr. Riaz Garrison Work Phone: [facility] 09-13-2023 13:01-0500 Body weight 89.[address] Riaz Garrison Work Phone: [facility] 09-13-2023 13:01-0500 Diastolic blood pressure 59 mm[Hg] Dr. Riaz Garrison Work Phone: [facility] 09-13-2023 13:01-0500 Heart rate 57 /min Dr. Riaz Garrison Work Phone: [facility] 09-13-2023 13:01-0500 Respiratory rate 18 /min Dr. Riaz Garrison Work Phone: [facility] 09-13-2023 13:01-0500 SaO2% (BldA) [Mass fraction] 96 % Dr. Riaz Garrison Work Phone: [facility] 09-13-2023 13:01-0500 Systolic blood pressure 103 mm[Hg] Dr. Riaz Garrison Work Phone: [facility] 09-12-2023 13:45-0500 Heart rate 56 /min Dr. Riaz Garrison Work Phone: [facility] 09-12-2023 13:42-0500 Body temperature 97.4 [degF] Dr. Riaz Garrison Work Phone: [facility] 09-12-2023 13:42-0500 Diastolic blood pressure 55 mm[Hg] Dr. Riaz Garrison Work Phone: [facility] 09-12-2023 13:42-0500 Respiratory rate 23 /min Dr. Riaz Garrison Work Phone: [facility] 09-12-2023 13:42-0500 SaO2% (BldA) [Mass fraction] 93 % Dr. Riaz Garrison Work Phone: [facility] 09-12-2023 13:42-0500 Systolic blood pressure 136 mm[Hg] Dr. Riaz Garrison Work Phone: [facility] 09-12-2023 09:18-0500 Body height [address] Riaz Garrison Work Phone: [facility] 09-12-2023 09:18-0500 Body mass index (BMI) [Ratio] 31.1 kg/m2 Dr. Riaz Garrison Work Phone: [facility] 09-12-2023 09:18-0500 Body weight 93.[address] Riaz Garrison Work Phone: [facility] 09-12-2023 05:18-0500 Diastolic blood pressure 79 mm[Hg] Dr. Riaz Garrison Work Phone: [facility] 09-12-2023 05:18-0500 Heart rate 54 /min Dr. Riaz Garrison Work Phone: [facility] 09-12-2023 05:18-0500 Respiratory rate 19 /min Dr. Riaz Garrison Work Phone: [facility] 09-12-2023 05:18-0500 SaO2% (BldA) [Mass fraction] 95 % Dr. Riaz Garrison Work Phone: [facility] 09-12-2023 05:18-0500 Systolic blood pressure 192 mm[Hg] Dr. Riaz Garrison Work Phone: [facility] 09-12-2023 04:42-0500 Body mass index (BMI) [Ratio] 31.2 kg/m2 Dr. Riaz Garrison Work Phone: [facility] 09-12-2023 01:18-0500 Body height 172.[address] Riaz Garrison Work Phone: [facility] 09-12-2023 01:18-0500 Body temperature 96.2 [degF] Dr. Riaz Garrison Work Phone: [facility] 09-12-2023 01:18-0500 Body weight 93.[address] Riaz Garrison Work Phone: [facility] 08-21-2023 13:15-0500 Diastolic blood pressure 52 mm[Hg] Rene Zapata MD Work Phone: [facility] 08-21-2023 13:15-0500 Heart rate 46 /min Rene Zapata MD Work Phone: [facility] 08-21-2023 13:15-0500 SaO2% (BldA) [Mass fraction] 97 % Rene Zapata MD Work Phone: [facility] 08-21-2023 13:15-0500 Systolic blood pressure 124 mm[Hg] Rene Zapata MD Work Phone: [facility] 07-18-2023 12:29-0400 Diastolic blood pressure 72 mm[Hg] Dr. Riaz Garrison Work Phone: [facility] 07-18-2023 12:29-0400 Systolic blood pressure 142 mm[Hg] Dr. Riaz Garrison Work Phone: [facility] 07-18-2023 11:27-0400 Body height 172.[address] Riaz Garrison Work Phone: [facility] 07-18-2023 11:27-0400 Body mass index (BMI) [Ratio] 31 kg/m2 Dr. Riaz Garrison Work Phone: [facility] 07-18-2023 11:27-0400 Body temperature 97.4 [degF] Dr. Riaz Garrison Work Phone: [facility] 07-18-2023 11:27-0400 Body weight 92.[address] Riaz Garrison Work Phone: [facility] 07-18-2023 11:27-0400 Heart rate 50 /min Dr. Riaz Garrison Work Phone: [facility] 07-18-2023 11:27-0400 Respiratory rate 18 /min Dr. Riaz Garrison Work Phone: [facility] 07-18-2023 11:27-0400 SaO2% (BldA) [Mass fraction] 98 % Dr. Riaz Garrison Work Phone: [facility] 05-16-2023 16:41-0400 Diastolic blood pressure 72 mm[Hg] Dr. Riaz Garrison Work Phone: [facility] 05-16-2023 16:41-0400 Systolic blood pressure 142 mm[Hg] Dr. Riaz Garrison Work Phone: [facility] 05-16-2023 14:09-0400 Body height 172.[address] Riaz Garrison Work Phone: [facility] 05-16-2023 14:09-0400 Body mass index (BMI) [Ratio] 30.9 kg/m2 Dr. Riaz Garrison Work Phone: [facility] 05-16-2023 14:09-0400 Body temperature 97.7 [degF] Dr. Riaz Garrison Work Phone: [facility] 05-16-2023 14:09-0400 Body weight 92.[address] Riaz Garrison Work Phone: [facility] 05-16-2023 14:09-0400 Heart rate 51 /min Dr. Riaz Garrison Work Phone: [facility] 05-16-2023 14:09-0400 Respiratory rate 16 /min Dr. Riaz Garrison Work Phone: [facility] 05-16-2023 14:09-0400 SaO2% (BldA) [Mass fraction] 99 % Dr. Riaz Garrison Work Phone: [facility] 05-06-2023 13:20-0400 Body height 172.[address] Riaz Garrison Work Phone: [facility] 05-06-2023 13:20-0400 Body mass index (BMI) [Ratio] 30.2 kg/m2 Dr. Riaz Garrison Work Phone: [facility] 05-06-2023 13:20-0400 Body weight 90.[address] Riaz Garrison Work Phone: [facility] 05-06-2023 13:20-0400 Diastolic blood pressure 62 mm[Hg] Dr. Riaz Garrison Work Phone: [facility] 05-06-2023 13:20-0400 Heart rate 52 /min Dr. Riaz Garrison Work Phone: [facility] 05-06-2023 13:20-0400 Respiratory rate 18 /min Dr. Riaz Garrison Work Phone: [facility] 05-06-2023 13:20-0400 SaO2% (BldA) [Mass fraction] 97 % Dr. Riaz Garrison Work Phone: [facility] 05-06-2023 13:20-0400 Systolic blood pressure 149 mm[Hg] Dr. Riaz Garrison Work Phone: [facility] 04-16-2023 06:13-0400 Body mass index (BMI) [Ratio] 29 kg/m2 Dr. Riaz Garrison Work Phone: [facility] 04-16-2023 06:13-0400 Body temperature 97.2 [degF] Dr. Riaz Garrison Work Phone: [facility] 04-16-2023 06:13-0400 Body weight 86.[address] Riaz Garrison Work Phone: [facility] 04-16-2023 06:13-0400 Diastolic blood pressure 64 mm[Hg] Dr. Riaz Garrison Work Phone: [facility] 04-16-2023 06:13-0400 Heart rate 58 /min Dr. Riaz Garrison Work Phone: [facility] 04-16-2023 06:13-0400 Respiratory rate 18 /min Dr. Riaz Garrison Work Phone: [facility] 04-16-2023 06:13-0400 SaO2% (BldA) [Mass fraction] 96 % Dr. Riaz Garrison Work Phone: [facility] 04-16-2023 06:13-0400 Systolic blood pressure 133 mm[Hg] Dr. Riaz Garrison Work Phone: [facility] 02-05-2023 10:02-0400 Diastolic blood pressure 68 mm[Hg] Darryl Mallory DO Work Phone: [facility] 02-05-2023 10:02-0400 Heart rate 63 /min Darryl Mallory DO Work Phone: [facility] 02-05-2023 10:02-0400 SaO2% (BldA) [Mass fraction] 100 % Darryl Mallory DO Work Phone: [facility] 02-05-2023 10:02-0400 Systolic blood pressure 134 mm[Hg] Darrylkaitlynn Mallory DO Work Phone: [facility] 01-17-2023 14:55-0400 Diastolic blood pressure 72 mm[Hg] Dr. Riaz Garrison Work Phone: [facility] 01-17-2023 14:55-0400 Heart rate 76 /min Dr. Riaz Garrison Work Phone: [facility] 01-17-2023 14:55-0400 Systolic blood pressure 122 mm[Hg] Dr. Riaz Garrison Work Phone: [facility] 01-17-2023 13:56-0400 Body mass index (BMI) [Ratio] 29.8 kg/m2 Dr. Riaz Garrison Work Phone: [facility] 01-17-2023 13:56-0400 Body temperature 96.6 [degF] Dr. Riaz Garrison Work Phone: [facility] 01-17-2023 13:56-0400 Body weight 88.[address] Riaz Garrison Work Phone: [facility] 01-17-2023 13:56-0400 Respiratory rate 18 /min Dr. Riaz Garrison Work Phone: [facility] 01-17-2023 13:56-0400 SaO2% (BldA) [Mass fraction] 97 % Dr. Riaz Garrison Work Phone: [facility] 11-06-2022 14:42-0500 Body height 172.[address] Riaz Garrison Work Phone: [facility] 11-06-2022 14:42-0500 Body mass index (BMI) [Ratio] 29.7 kg/m2 Dr. Riaz Garrison Work Phone: [facility] 11-06-2022 14:42-0500 Body weight 88.[address] Riaz Garrison Work Phone: [facility] 11-06-2022 14:42-0500 Diastolic blood pressure 61 mm[Hg] Dr. Riaz Garrison Work Phone: [facility] 11-06-2022 14:42-0500 Heart rate 58 /min Dr. Riaz Garrison Work Phone: [facility] 11-06-2022 14:42-0500 Respiratory rate 20 /min Dr. Riaz Garrison Work Phone: [facility] 11-06-2022 14:42-0500 Systolic blood pressure 141 mm[Hg] Dr. Riaz Garrison Work Phone: [facility] 10-18-2022 08:51-0500 Body mass index (BMI) [Ratio] 28.4 kg/m2 Dr. Riaz Garrison Work Phone: [facility] 10-18-2022 08:51-0500 Body temperature 97.5 [degF] Dr. Riaz Garrison Work Phone: [facility] 10-18-2022 08:51-0500 Body weight 84.[address] Riaz Garrison Work Phone: [facility] 10-18-2022 08:51-0500 Diastolic blood pressure 72 mm[Hg] Dr. Riaz Garrison Work Phone: [facility] 10-18-2022 08:51-0500 Heart rate 88 /min Dr. Riaz Garrison Work Phone: [facility] 10-18-2022 08:51-0500 Respiratory rate 18 /min Dr. Riaz Garrison Work Phone: [facility] 10-18-2022 08:51-0500 SaO2% (BldA) [Mass fraction] 95 % Dr. Riaz Garrison Work Phone: [facility] 10-18-2022 08:51-0500 Systolic blood pressure 136 mm[Hg] Dr. Riaz Garrison Work Phone: [facility] 09-19-2022 13:54-0500 Body mass index (BMI) [Ratio] 28.5 kg/m2 Dr. Riaz Garrison Work Phone: [facility] 09-19-2022 13:54-0500 Body temperature 96 [degF] Dr. Riaz Garrison Work Phone: [facility] 09-19-2022 13:54-0500 Body weight 85.[address] Riaz Garrison Work Phone: [facility] 09-19-2022 13:54-0500 Diastolic blood pressure 68 mm[Hg] Dr. Riaz Garrison Work Phone: [facility] 09-19-2022 13:54-0500 Heart rate 76 /min Dr. Riaz Garrison Work Phone: [facility] 09-19-2022 13:54-0500 Respiratory rate 16 /min Dr. Riaz Garrison Work Phone: [facility] 09-19-2022 13:54-0500 SaO2% (BldA) [Mass fraction] 97 % Dr. Riaz Garrison Work Phone: [facility] 09-19-2022 13:54-0500 Systolic blood pressure 128 mm[Hg] Dr. Riaz Garrison Work Phone: [facility] 08-03-2022 13:28-0400 Body height 172.[address] Emeka Horn Work Phone: [facility] Work Phone: 08-03-2022 13:27-0400 Body mass index (BMI) [Ratio] 28.5 kg/m2 Dr. Emeka Horn Work Phone: [facility] Work Phone: 08-03-2022 13:27-0400 Body weight 85.[address] Emeka Horn Work Phone: [facility] Work Phone: 08-03-2022 13:27-0400 Diastolic blood pressure 69 mm[Hg] Dr. Emeka Horn Work Phone: [facility] Work Phone: 08-03-2022 13:27-0400 Heart rate 69 /min Dr. Emeka Horn Work Phone: [facility] Work Phone: 08-03-2022 13:27-0400 Respiratory rate 18 /min Dr. Emeka Horn Work Phone: [facility] Work Phone: 08-03-2022 13:27-0400 SaO2% (BldA) [Mass fraction] 96 % Dr. Emeka Horn Work Phone: [facility] Work Phone: 08-03-2022 13:27-0400 Systolic blood pressure 163 mm[Hg] Dr. Emeka Horn Work Phone: [facility] Work Phone: 06-25-2022 13:48-0400 Body temperature 97.5 [degF] Dr. Emeka Horn Work Phone: [facility] Work Phone: 06-25-2022 13:48-0400 Diastolic blood pressure 62 mm[Hg] Dr. Emeka Hron Work Phone: [facility] Work Phone: 06-25-2022 13:48-0400 Heart rate 59 /min Dr. Emeka Horn Work Phone: [facility] Work Phone: 06-25-2022 13:48-0400 Respiratory rate 16 /min Dr. Emeka Horn Work Phone: [facility] Work Phone: 06-25-2022 13:48-0400 SaO2% (BldA) [Mass fraction] 98 % Dr. Emeka Horn Work Phone: [facility] Work Phone: 06-25-2022 13:48-0400 Systolic blood pressure 148 mm[Hg] Dr. Emeka Horn Work Phone: [facility] Work Phone: 06-25-2022 13:33-0400 Body weight 83.[address] Emeka Horn Work Phone: [facility] Work Phone: 06-25-2022 13:29-0400 Body height 172.[address] Emeka Horn Work Phone: [facility] Work Phone: 06-20-2022 13:19-0400 Body height 172.[address] Emeka Horn Work Phone: [facility] Work Phone: 06-20-2022 13:19-0400 Body mass index (BMI) [Ratio] 30.7 kg/m2 Dr. Emeka Horn Work Phone: [facility] Work Phone: 06-20-2022 13:19-0400 Body temperature 96.5 [degF] Dr. Emeka Horn Work Phone: [facility] Work Phone: 06-20-2022 13:19-0400 Body weight 91.[address] Emeka Horn Work Phone: [facility] Work Phone: 06-20-2022 13:19-0400 Diastolic blood pressure 60 mm[Hg] Dr. Emeka Honr Work Phone: [facility] Work Phone: 06-20-2022 13:19-0400 Heart rate 51 /min Dr. Emeka Horn Work Phone: [facility] Work Phone: 06-20-2022 13:19-0400 Respiratory rate 18 /min Dr. Emeka Horn Work Phone: [facility] Work Phone: 06-20-2022 13:19-0400 SaO2% (BldA) [Mass fraction] 95 % Dr. Emeka Horn Work Phone: [facility] Work Phone: 06-20-2022 13:19-0400 Systolic blood pressure 150 mm[Hg] Dr. Emeka Horn Work Phone: [facility] Work Phone: 06-19-2022 10:29-0400 Body mass index (BMI) [Ratio] 29.1 kg/m2 Dr. Emeka Horn Work Phone: [facility] Work Phone: 06-19-2022 10:29-0400 Body weight 92.[address] Emeka Horn Work Phone: [facility] Work Phone: 06-19-2022 10:29-0400 Diastolic blood pressure 76 mm[Hg] Dr. Emeka Horn Work Phone: [facility] Work Phone: 06-19-2022 10:29-0400 Heart rate 66 /min Dr. Emeka Horn Work Phone: [facility] Work Phone: 06-19-2022 10:29-0400 Respiratory rate 20 /min Dr. Emeka Horn Work Phone: [facility] Work Phone: 06-19-2022 10:29-0400 Systolic blood pressure 142 mm[Hg] Dr. Emeka Horn Work Phone: [facility] Work Phone: 06-14-2022 15:59-0400 Heart rate 58 /min Dr. Emeka Horn Work Phone: [facility] Work Phone: 06-14-2022 15:13-0400 Respiratory rate 18 /min Dr. Emeka Horn Work Phone: [facility] Work Phone: 06-14-2022 14:53-0400 SaO2% (BldA) [Mass fraction] 96 % Dr. Emeka Horn Work Phone: [facility] Work Phone: 06-14-2022 14:34-0400 Inhaled oxygen flow rate 2 L/min Dr. Emeka Horn Work Phone: [facility] Work Phone: 06-14-2022 13:54-0400 Body temperature 98.3 [degF] Dr. Emeka Horn Work Phone: [facility] Work Phone: 06-14-2022 13:54-0400 Diastolic blood pressure 59 mm[Hg] Dr. Emeka Horn Work Phone: [facility] Work Phone: 06-14-2022 13:54-0400 Systolic blood pressure 130 mm[Hg] Dr. Emeka Horn Work Phone: [facility] Work Phone: 06-11-2022 23:24-0400 Inhaled oxygen concentration 28 % Dr. Emeka Horn Work Phone: [facility] Work Phone: 06-11-2022 11:28-0400 Body height 177.[address] Emeka Horn Work Phone: [facility] Work Phone: 06-11-2022 11:28-0400 Body weight 91.[address] Emeka Horn Work Phone: [facility] Work Phone: 06-09-2022 04:00-0400 Body temperature 97.9 [degF] Dr. Emeka Horn Work Phone: [facility] Work Phone: 06-09-2022 04:00-0400 Diastolic blood pressure 101 mm[Hg] Dr. Emeka Horn Work Phone: [facility] Work Phone: 06-09-2022 04:00-0400 Heart rate 75 /min Dr. Emeka Horn Work Phone: [facility] Work Phone: 06-09-2022 04:00-0400 Inhaled oxygen concentration 30 % Dr. Emeka Horn Work Phone: [facility] Work Phone: 06-09-2022 04:00-0400 Respiratory rate 24 /min Dr. Emeka Horn Work Phone: [facility] Work Phone: 06-09-2022 04:00-0400 SaO2% (BldA) [Mass fraction] 100 % Dr. Emeka Horn Work Phone: [facility] Work Phone: 06-09-2022 04:00-0400 Systolic blood pressure 214 mm[Hg] Dr. Emeka Horn Work Phone: [facility] Work Phone: 06-09-2022 03:54-0400 Body height 177.[address] Emeka Horn Work Phone: [facility] Work Phone: 06-09-2022 03:54-0400 Body mass index (BMI) [Ratio] 29 kg/m2 Dr. Emeka Horn Work Phone: [facility] Work Phone: 06-09-2022 03:54-0400 Body weight 91.[address] Emeka Horn Work Phone: [facility] Work Phone: 06-09-2022 01:11-0400 Inhaled oxygen flow rate 2 L/min Dr. Emeka Horn Work Phone: [facility] Work Phone: 06-06-2022 13:31-0400 Heart rate 59 /min Dr. Emeka Horn Work Phone: [facility] Work Phone: 06-06-2022 13:27-0400 Body temperature 97.1 [degF] Dr. Emeka Horn Work Phone: [facility] Work Phone: 06-06-2022 13:27-0400 Diastolic blood pressure 49 mm[Hg] Dr. Emeka Horn Work Phone: [facility] Work Phone: 06-06-2022 13:27-0400 Respiratory rate 18 /min Dr. Emeka Horn Work Phone: [facility] Work Phone: 06-06-2022 13:27-0400 SaO2% (BldA) [Mass fraction] 97 % Dr. Emeka Horn Work Phone: [facility] Work Phone: 06-06-2022 13:27-0400 Systolic blood pressure 123 mm[Hg] Dr. Emeka Horn Work Phone: [facility] Work Phone: 06-06-2022 07:43-0400 Inhaled oxygen flow rate 2 L/min Dr. Emeka Horn Work Phone: [facility] Work Phone: 06-06-2022 06:00-0400 Body weight 90.[address] Emeka Horn Work Phone: [facility] Work Phone: 06-05-2022 13:01-0400 Body height 177.[address] Emeka Horn Work Phone: [facility] Work Phone: 06-05-2022 13:01-0400 Body mass index (BMI) [Ratio] 27.6 kg/m2 Dr. Emeka Horn Work Phone: [facility] Work Phone: 06-03-2022 03:19-0400 Body height 177.[address] Emeka Horn Work Phone: [facility] Work Phone: 06-03-2022 03:19-0400 Body mass index (BMI) [Ratio] 27.6 kg/m2 Dr. Emeka Horn Work Phone: [facility] Work Phone: 06-03-2022 03:19-0400 Body weight 87.[address] Emeka Horn Work Phone: [facility] Work Phone: 06-03-2022 02:42-0400 Body temperature 97.9 [degF] Dr. Emeka Horn Work Phone: [facility] Work Phone: 06-03-2022 02:42-0400 Diastolic blood pressure 75 mm[Hg] Dr. Emeka Horn Work Phone: [facility] Work Phone: 06-03-2022 02:42-0400 Heart rate 68 /min Dr. Emeka Horn Work Phone: [facility] Work Phone: 06-03-2022 02:42-0400 Respiratory rate 20 /min Dr. Emeka Horn Work Phone: [facility] Work Phone: 06-03-2022 02:42-0400 SaO2% (BldA) [Mass fraction] 94 % Dr. Emeka Horn Work Phone: [facility] Work Phone: 06-03-2022 02:42-0400 Systolic blood pressure 169 mm[Hg] Dr. Emeka Horn Work Phone: [facility] Work Phone: 05-30-2022 10:17-0400 Diastolic blood pressure 70 mm[Hg] Dr. Emeka Horn Work Phone: [facility] Work Phone: 05-30-2022 10:17-0400 Systolic blood pressure 140 mm[Hg] Dr. Emeka Horn Work Phone: [facility] Work Phone: 05-30-2022 09:30-0400 Body mass index (BMI) [Ratio] 28.3 kg/m2 Dr. Emeka Horn Work Phone: [facility] Work Phone: 05-30-2022 09:30-0400 Body weight 89.[address] Emeka Horn Work Phone: [facility] Work Phone: 05-30-2022 09:30-0400 Heart rate 64 /min Dr. Emeka Horn Work Phone: [facility] Work Phone: 05-30-2022 09:30-0400 Respiratory rate 20 /min Dr. Emeka Horn Work Phone: [facility] Work Phone: 05-28-2022 14:22-0400 Diastolic blood pressure 59 mm[Hg] Dr. Emeka Horn Work Phone: [facility] Work Phone: 05-28-2022 14:22-0400 Heart rate 56 /min Dr. Emeka Horn Work Phone: [facility] Work Phone: 05-28-2022 14:22-0400 Respiratory rate 16 /min Dr. Emeka Horn Work Phone: [facility] Work Phone: 05-28-2022 14:22-0400 SaO2% (BldA) [Mass fraction] 98 % Dr. Emeka Horn Work Phone: [facility] Work Phone: 05-28-2022 14:22-0400 Systolic blood pressure 154 mm[Hg] Dr. Emeka Horn Work Phone: [facility] Work Phone: 05-28-2022 10:36-0400 Body height 177.[address] Emeka Horn Work Phone: [facility] Work Phone: 05-28-2022 10:36-0400 Body mass index (BMI) [Ratio] 27.9 kg/m2 Dr. Emeka Horn Work Phone: [facility] Work Phone: 05-28-2022 10:36-0400 Body temperature 98.6 [degF] Dr. Emeka Horn Work Phone: [facility] Work Phone: 05-28-2022 10:36-0400 Body weight 88.[address] Emeka Horn Work Phone: [facility] Work Phone: 05-25-2022 16:25-0400 Diastolic blood pressure 67 mm[Hg] Emeka Horn MD Work Phone: [facility] 05-25-2022 16:25-0400 Heart rate 60 /min Emeka Horn MD Work Phone: [facility] 05-25-2022 16:25-0400 Systolic blood pressure 171 mm[Hg] Emeka Horn MD Work Phone: [facility] 05-25-2022 16:05-0400 Body temperature 97.2 [degF] Emeka Horn MD Work Phone: [facility] 05-25-2022 16:05-0400 Body weight 87.54 kg Emeka Horn MD Work Phone: [facility] 05-25-2022 16:05-0400 Respiratory rate 16 /min Emeka Horn MD Work Phone: [facility] 05-25-2022 16:05-0400 SaO2% (BldA) [Mass fraction] 95 % Emeka Horn MD Work Phone: [facility] 05-22-2022 14:03-0400 Diastolic blood pressure 83 mm[Hg] Dr. Emeka Horn Work Phone: [facility] Work Phone: 05-22-2022 14:03-0400 Heart rate 58 /min Dr. Emeka Horn Work Phone: [facility] Work Phone: 05-22-2022 14:03-0400 Respiratory rate 18 /min Dr. Emeka Horn Work Phone: [facility] Work Phone: 05-22-2022 14:03-0400 SaO2% (BldA) [Mass fraction] 93 % Dr. Emeka Horn Work Phone: [facility] Work Phone: 05-22-2022 14:03-0400 Systolic blood pressure 182 mm[Hg] Dr. Emeka Horn Work Phone: [facility] Work Phone: 05-22-2022 10:12-0400 Inhaled oxygen flow rate 2 L/min Dr. Emeka Horn Work Phone: [facility] Work Phone: 05-22-2022 08:55-0400 Body height 177.[address] Emeka Horn Work Phone: [facility] Work Phone: 05-22-2022 08:55-0400 Body mass index (BMI) [Ratio] 28.6 kg/m2 Dr. Emeka Horn Work Phone: [facility] Work Phone: 05-22-2022 08:55-0400 Body temperature 97.4 [degF] Dr. Emeka Horn Work Phone: [facility] Work Phone: 05-22-2022 08:55-0400 Body weight 90.[address] Emeka Horn Work Phone: [facility] Work Phone: 05-16-2022 11:00-0400 Heart rate 72 /min Dr. Emeka Horn Work Phone: [facility] Work Phone: 05-16-2022 10:42-0400 Body temperature 97.5 [degF] Dr. Emeka Horn Work Phone: [facility] Work Phone: 05-16-2022 10:42-0400 Diastolic blood pressure 75 mm[Hg] Dr. Emeka Horn Work Phone: [facility] Work Phone: 05-16-2022 10:42-0400 Respiratory rate 18 /min Dr. Emeka Horn Work Phone: [facility] Work Phone: 05-16-2022 10:42-0400 SaO2% (BldA) [Mass fraction] 97 % Dr. Emeka Horn Work Phone: [facility] Work Phone: 05-16-2022 10:42-0400 Systolic blood pressure 141 mm[Hg] Dr. Emeka Horn Work Phone: [facility] Work Phone: 05-16-2022 06:00-0400 Body weight 86.[address] Emeka Horn Work Phone: [facility] Work Phone: 05-15-2022 14:11-0400 Body height 177.[address] Emeka Horn Work Phone: [facility] Work Phone: 05-15-2022 13:04-0400 Inhaled oxygen flow rate 2 L/min Dr. Emeka Horn Work Phone: [facility] Work Phone: 05-15-2022 11:12-0400 Body mass index (BMI) [Ratio] 27.4 kg/m2 Dr. Emeka Horn Work Phone: [facility] Work Phone: 05-15-2022 10:21-0400 Body temperature 98.1 [degF] Dr. Emeka Horn Work Phone: [facility] Work Phone: 05-15-2022 10:21-0400 Diastolic blood pressure 79 mm[Hg] Dr. Emeka Horn Work Phone: [facility] Work Phone: 05-15-2022 10:21-0400 Heart rate 62 /min Dr. Emeka Horn Work Phone: [facility] Work Phone: 05-15-2022 10:21-0400 Inhaled oxygen flow rate 2 L/min Dr. Emeka Horn Work Phone: [facility] Work Phone: 05-15-2022 10:21-0400 Respiratory rate 19 /min Dr. Emeka Horn Work Phone: [facility] Work Phone: 05-15-2022 10:21-0400 SaO2% (BldA) [Mass fraction] 96 % Dr. Emeka Horn Work Phone: [facility] Work Phone: 05-15-2022 10:21-0400 Systolic blood pressure 183 mm[Hg] Dr. Emeka Horn Work Phone: [facility] Work Phone: 05-15-2022 06:45-0400 Body height 177.[address] Emeka Horn Work Phone: [facility] Work Phone: 05-15-2022 06:45-0400 Body mass index (BMI) [Ratio] 31.2 kg/m2 Dr. Emeka Horn Work Phone: [facility] Work Phone: 05-15-2022 06:45-0400 Body weight 98.[address] Emeka Horn Work Phone: [facility] Work Phone: 05-14-2022 10:51-0400 Body weight 89.36 kg Dominique Reese LSAT INSTRUCTOR.CN S Work Phone: [facility] 05-14-2022 10:51-0400 Diastolic blood pressure 52 mm[Hg] Dominique Reese LSAT INSTRUCTOR.DIRECTOR OF STRATEGY & MOBILE Work Phone: [facility] 05-14-2022 10:51-0400 Heart rate 63 /min Dominique Reese LSAT INSTRUCTOR.[employer] Work Phone: [facility] 05-14-2022 10:51-0400 Respiratory rate 16 /min Dominique Reese LSAT INSTRUCTOR.[employer] Work Phone: [facility] 05-14-2022 10:51-0400 SaO2% (BldA) [Mass fraction] 96 % Dominique Reese LSAT INSTRUCTOR.DIRECTOR OF STRATEGY & MOBILE Work Phone: [facility] 05-14-2022 10:51-0400 Systolic blood pressure 138 mm[Hg] Dominique Reese LSAT INSTRUCTOR.DIRECTOR OF STRATEGY & MOBILE Work Phone: [facility] 05-02-2022 13:33-0400 Body mass index (BMI) [Ratio] 27.2 kg/m2 Dr. Emeka Horn Work Phone: [facility] Work Phone: 05-02-2022 13:33-0400 Body weight 86.[address] Emeka Horn Work Phone: [facility] Work Phone: 05-02-2022 13:33-0400 Diastolic blood pressure 57 mm[Hg] Dr. Emeka Horn Work Phone: [facility] Work Phone: 05-02-2022 13:33-0400 Heart rate 65 /min Dr. Emeka Horn Work Phone: [facility] Work Phone: 05-02-2022 13:33-0400 Respiratory rate 20 /min Dr. Emeka Horn Work Phone: [facility] Work Phone: 05-02-2022 13:33-0400 SaO2% (BldA) [Mass fraction] 96 % Dr. Emeka Horn Work Phone: [facility] Work Phone: 05-02-2022 13:33-0400 Systolic blood pressure 112 mm[Hg] Dr. Emeka Horn Work Phone: [facility] Work Phone: 04-26-2022 13:02-0400 Body height 177.8 cm Colton Mendez MD Work Phone: [facility] 04-26-2022 13:02-0400 Body temperature 97.2 [degF] Colton Mendez MD Work Phone: [facility] 04-26-2022 13:02-0400 Body weight 88 kg Colton Mendez MD Work Phone: [facility] 04-26-2022 13:02-0400 Diastolic blood pressure 60 mm[Hg] Colton Mendez MD Work Phone: [facility] 04-26-2022 13:02-0400 Heart rate 78 /min Colton Mendez MD Work Phone: [facility] 04-26-2022 13:02-0400 Respiratory rate 20 /min Colton Mendez MD Work Phone: [facility] 04-26-2022 13:02-0400 SaO2% (BldA) [Mass fraction] 95 % Colton Mendez MD Work Phone: [facility] 04-26-2022 13:02-0400 Systolic blood pressure 124 mm[Hg] Colton Mendez MD Work Phone: [facility] 04-22-2022 14:40-0400 Diastolic blood pressure 85 mm[Hg] Dr. Emeka Horn Work Phone: [facility] Work Phone: 04-22-2022 14:40-0400 Heart rate 68 /min Dr. Emeka Horn Work Phone: [facility] Work Phone: 04-22-2022 14:40-0400 Respiratory rate 16 /min Dr. Emeka Horn Work Phone: [facility] Work Phone: 04-22-2022 14:40-0400 SaO2% (BldA) [Mass fraction] 98 % Dr. Emeka Horn Work Phone: [facility] Work Phone: 04-22-2022 14:40-0400 Systolic blood pressure 197 mm[Hg] Dr. Emeka Horn Work Phone: [facility] Work Phone: 04-22-2022 07:51-0400 Body height 177.[address] Emeka Horn Work Phone: [facility] Work Phone: 04-22-2022 07:51-0400 Body mass index (BMI) [Ratio] 27.9 kg/m2 Dr. Emeka Horn Work Phone: [facility] Work Phone: 04-22-2022 07:51-0400 Body temperature 97.7 [degF] Dr. Emeka Horn Work Phone: [facility] Work Phone: 04-22-2022 07:51-0400 Body weight 88.[address] Emeka Horn Work Phone: [facility] Work Phone: 04-12-2022 10:33-0400 Body weight 87.54 kg Dominique Reese LSAT INSTRUCTOR.CN S Work Phone: [facility] 04-12-2022 10:33-0400 Diastolic blood pressure 58 mm[Hg] Dominique Reese LSAT INSTRUCTOR.DIRECTOR OF STRATEGY & MOBILE Work Phone: [facility] 04-12-2022 10:33-0400 Heart rate 60 /min Dominique Reese LSAT INSTRUCTOR.CN S Work Phone: [facility] 04-12-2022 10:33-0400 Respiratory rate 16 /min Dominique Reese LSAT INSTRUCTOR.CN S Work Phone: [facility] 04-12-2022 10:33-0400 SaO2% (BldA) [Mass fraction] 96 % Dominique Reese LSAT INSTRUCTOR.DIRECTOR OF STRATEGY & MOBILE Work Phone: [facility] 04-12-2022 10:33-0400 Systolic blood pressure 122 mm[Hg] Dominique Reese LSAT INSTRUCTOR.DIRECTOR OF STRATEGY & MOBILE Work Phone: [facility] 03-29-2022 05:47-0400 Diastolic blood pressure 87 mm[Hg] Dr. Emeka Horn Work Phone: [facility] Work Phone: 03-29-2022 05:47-0400 Heart rate 72 /min Dr. Emeka Horn Work Phone: [facility] Work Phone: 03-29-2022 05:47-0400 Respiratory rate 16 /min Dr. Emeka Horn Work Phone: [facility] Work Phone: 03-29-2022 05:47-0400 SaO2% (BldA) [Mass fraction] 95 % Dr. Emeka Horn Work Phone: [facility] Work Phone: 03-29-2022 05:47-0400 Systolic blood pressure 168 mm[Hg] Dr. Emeka Horn Work Phone: [facility] Work Phone: 03-29-2022 03:36-0400 Body height 177.[address] Emeka Horn Work Phone: [facility] Work Phone: 03-29-2022 03:36-0400 Body mass index (BMI) [Ratio] 28.3 kg/m2 Dr. Emeka Horn Work Phone: [facility] Work Phone: 03-29-2022 03:36-0400 Body temperature 97.2 [degF] Dr. Emeka Horn Work Phone: [facility] Work Phone: 03-29-2022 03:36-0400 Body weight 89.[address] Emeka Horn Work Phone: [facility] Work Phone: 03-28-2022 13:19-0400 Body temperature 97 [degF] Emeka Horn MD Work Phone: [facility] 03-28-2022 13:19-0400 Body weight 88.18 kg Emkea Horn MD Work Phone: [facility] 03-28-2022 13:19-0400 Diastolic blood pressure 58 mm[Hg] Emeka Horn MD Work Phone: [facility] 03-28-2022 13:19-0400 Heart rate 60 /min Emeka Horn MD Work Phone: [facility] 03-28-2022 13:19-0400 Respiratory rate 18 /min Emeka Horn MD Work Phone: [facility] 03-28-2022 13:19-0400 Systolic blood pressure 136 mm[Hg] Emeka Horn MD Work Phone: [facility] 03-22-2022 07:50-0400 Diastolic blood pressure 60 mm[Hg] Dr. Emeka Horn Work Phone: [facility] Work Phone: 03-22-2022 07:50-0400 Heart rate 66 /min Dr. Emeka Horn Work Phone: [facility] Work Phone: 03-22-2022 07:50-0400 Systolic blood pressure 128 mm[Hg] Dr. Emeka Horn Work Phone: [facility] Work Phone: 03-22-2022 06:55-0400 Body temperature 97.3 [degF] Dr. Emeka Horn Work Phone: [facility] Work Phone: 03-22-2022 06:55-0400 Respiratory rate 18 /min Dr. Emeka Horn Work Phone: [facility] Work Phone: 03-22-2022 06:55-0400 SaO2% (BldA) [Mass fraction] 94 % Dr. Emeka Horn Work Phone: [facility] Work Phone: 03-20-2022 14:00-0400 Body weight 87.[address] Emeka Horn Work Phone: [facility] Work Phone: 03-17-2022 05:00-0400 Inhaled oxygen flow rate 2 L/min Dr. Emeka Horn Work Phone: [facility] Work Phone: 03-14-2022 15:03-0400 Body height 177.[address] Emeka Horn Work Phone: [facility] Work Phone: 03-10-2022 08:00-0400 Body mass index (BMI) [Ratio] 28.3 kg/m2 Dr. Emeka Horn Work Phone: [facility] Work Phone: 03-09-2022 15:30-0400 Body temperature 98.5 [degF] Dr. Emeka Horn Work Phone: [facility] Work Phone: 03-09-2022 15:30-0400 Diastolic blood pressure 65 mm[Hg] Dr. Emeka Horn Work Phone: [facility] Work Phone: 03-09-2022 15:30-0400 Heart rate 76 /min Dr. Emeka Horn Work Phone: [facility] Work Phone: 03-09-2022 15:30-0400 Respiratory rate 18 /min Dr. Emeka Horn Work Phone: [facility] Work Phone: 03-09-2022 15:30-0400 SaO2% (BldA) [Mass fraction] 93 % Dr. Emeka Horn Work Phone: [facility] Work Phone: 03-09-2022 15:30-0400 Systolic blood pressure 138 mm[Hg] Dr. Emeka Horn Work Phone: [facility] Work Phone: 03-08-2022 19:01-0400 Inhaled oxygen flow rate 2 L/min Dr. Emeka Horn Work Phone: [facility] Work Phone: 03-07-2022 18:10-0400 Body mass index (BMI) [Ratio] 27.8 kg/m2 Dr. Emeka Horn Work Phone: [facility] Work Phone: 03-07-2022 18:10-0400 Body weight [address] Emeka Horn Work Phone: [facility] Work Phone: 02-21-2022 14:10-0400 Body mass index (BMI) [Ratio] 29 kg/m2 Dr. Emeka Horn Work Phone: [facility] Work Phone: 02-21-2022 14:10-0400 Body temperature 98.6 [degF] Dr. Emeka Horn Work Phone: [facility] Work Phone: 02-21-2022 14:10-0400 Body weight 91.[address] Emeka Horn Work Phone: [facility] Work Phone: 02-21-2022 14:10-0400 Diastolic blood pressure 78 mm[Hg] Dr. Emeka Horn Work Phone: [facility] Work Phone: 02-21-2022 14:10-0400 Heart rate 62 /min Dr. Emeka Horn Work Phone: [facility] Work Phone: 02-21-2022 14:10-0400 Respiratory rate 16 /min Dr. Emeka Horn Work Phone: [facility] Work Phone: 02-21-2022 14:10-0400 SaO2% (BldA) [Mass fraction] 98 % Dr. Emeka Horn Work Phone: [facility] Work Phone: 02-21-2022 14:10-0400 Systolic blood pressure 160 mm[Hg] Dr. Emeka Horn Work Phone: [facility] Work Phone: 02-21-2022 14:10-0400 Body height 177.[address] Emeka Horn Work Phone: [facility] Work Phone: 02-21-2022 14:10-0400 Body mass index (BMI) [Ratio] 29 kg/m2 Dr. Emeka Horn Work Phone: [facility] Work Phone: 02-21-2022 14:10-0400 Body temperature 98.6 [degF] Dr. Emeka Horn Work Phone: [facility] Work Phone: 02-21-2022 14:10-0400 Body weight 91.[address] Emeka Horn Work Phone: [facility] Work Phone: 02-21-2022 14:10-0400 Diastolic blood pressure 78 mm[Hg] Dr. Emeka Horn Work Phone: [facility] Work Phone: 02-21-2022 14:10-0400 Heart rate 62 /min Dr. Emeka Horn Work Phone: [facility] Work Phone: 02-21-2022 14:10-0400 Respiratory rate 16 /min Dr. Emeka Horn Work Phone: [facility] Work Phone: 02-21-2022 14:10-0400 SaO2% (BldA) [Mass fraction] 98 % Dr. Emeka Horn Work Phone: [facility] Work Phone: 02-21-2022 14:10-0400 Systolic blood pressure 160 mm[Hg] Dr. Emeka Horn Work Phone: [facility] Work Phone: 02-07-2022 10:00-0400 Diastolic blood pressure 64 mm[Hg] Samantha Older LSAT INSTRUCTOR.MANAGER VEHICLE Work Phone: [facility] 02-07-2022 10:00-0400 Systolic blood pressure 132 mm[Hg] Samantha Older LSAT INSTRUCTOR.MANAGER VEHICLE Work Phone: [facility] 02-07-2022 09:39-0400 Body weight 93.44 kg Samantha Older LSAT INSTRUCTOR.MANAGER VEHICLE Work Phone: [facility] 02-07-2022 09:39-0400 Heart rate 60 /min Samantha Older LSAT INSTRUCTOR.MANAGER VEHICLE Work Phone: [facility] 02-07-2022 09:39-0400 Respiratory rate 22 /min Samantha Older LSAT INSTRUCTOR.MANAGER VEHICLE Work Phone: [facility] 02-07-2022 09:39-0400 SaO2% (BldA) [Mass fraction] 96 % Samantha Older LSAT INSTRUCTOR.MANAGER VEHICLE Work Phone: [facility] 01-25-2022 13:42-0400 Body mass index (BMI) [Ratio] 29.2 kg/m2 Dr. Emeka Horn Work Phone: [facility] Work Phone: 01-25-2022 13:42-0400 Body weight 92.[address] Emeka Horn Work Phone: [facility] Work Phone: 01-25-2022 13:42-0400 Diastolic blood pressure 57 mm[Hg] Dr. Emeka Horn Work Phone: [facility] Work Phone: 01-25-2022 13:42-0400 Heart rate 62 /min Dr. Emeka Horn Work Phone: [facility] Work Phone: 01-25-2022 13:42-0400 Respiratory rate 20 /min Dr. Emeka Horn Work Phone: [facility] Work Phone: 01-25-2022 13:42-0400 Systolic blood pressure 126 mm[Hg] Dr. Emeka Horn Work Phone: [facility] Work Phone: 01-25-2022 13:42-0400 Body height 177.[address] Emeka Horn Work Phone: [facility] Work Phone: 01-25-2022 13:42-0400 Body mass index (BMI) [Ratio] 29.2 kg/m2 Dr. Emeka Horn Work Phone: [facility] Work Phone: 01-25-2022 13:42-0400 Body weight 92.[address] Emeka Horn Work Phone: [facility] Work Phone: 01-25-2022 13:42-0400 Diastolic blood pressure 57 mm[Hg] Dr. Emeka Horn Work Phone: [facility] Work Phone: 01-25-2022 13:42-0400 Heart rate 62 /min Dr. Emeka Horn Work Phone: [facility] Work Phone: 01-25-2022 13:42-0400 Respiratory rate 20 /min Dr. Emeka Horn Work Phone: [facility] Work Phone: 01-25-2022 13:42-0400 Systolic blood pressure 126 mm[Hg] Dr. Emeka Horn Work Phone: [facility] Work Phone: 01-17-2022 14:06-0400 Body temperature 98.4 [degF] Dr. Emeka Horn Work Phone: [facility] Work Phone: 01-17-2022 14:06-0400 Diastolic blood pressure 70 mm[Hg] Dr. Emeka Horn Work Phone: [facility] Work Phone: 01-17-2022 14:06-0400 Heart rate 76 /min Dr. Emeka Horn Work Phone: [facility] Work Phone: 01-17-2022 14:06-0400 Respiratory rate 18 /min Dr. Emeka Horn Work Phone: [facility] Work Phone: 01-17-2022 14:06-0400 SaO2% (BldA) [Mass fraction] 97 % Dr. Emeka Horn Work Phone: [facility] Work Phone: 01-17-2022 14:06-0400 Systolic blood pressure 158 mm[Hg] Dr. Emeka Horn Work Phone: [facility] Work Phone: 01-17-2022 14:06-0400 Body temperature 98.4 [degF] Dr. Emeka Horn Work Phone: [facility] Work Phone: 01-17-2022 14:06-0400 Diastolic blood pressure 70 mm[Hg] Dr. Emeka Horn Work Phone: [facility] Work Phone: 01-17-2022 14:06-0400 Heart rate 76 /min Dr. Emeka Horn Work Phone: [facility] Work Phone: 01-17-2022 14:06-0400 Respiratory rate 18 /min Dr. Emeka Horn Work Phone: [facility] Work Phone: 01-17-2022 14:06-0400 SaO2% (BldA) [Mass fraction] 97 % Dr. Emeka Horn Work Phone: [facility] Work Phone: 01-17-2022 14:06-0400 Systolic blood pressure 158 mm[Hg] Dr. Emeka Horn Work Phone: [facility] Work Phone: 01-09-2022 09:11-0400 Diastolic blood pressure 72 mm[Hg] Darryl Mallory DO Work Phone: [facility] 01-09-2022 09:11-0400 Systolic blood pressure 160 mm[Hg] Darryl Mallory DO Work Phone: [facility] 01-09-2022 09:08-0400 Body height 170.2 cm Darryl Mallory DO Work Phone: [facility] 01-09-2022 09:08-0400 Body weight 93.89 kg Darryl Mallory DO Work Phone: [facility] 01-09-2022 09:08-0400 Heart rate 62 /min Darryl Mallory DO Work Phone: [facility] 01-09-2022 09:08-0400 SaO2% (BldA) [Mass fraction] 97 % Darryl Mallory DO Work Phone: [facility] 01-04-2022 14:20-0400 Body temperature 98.2 [degF] Dr. Emeka Horn Work Phone: [facility] Work Phone: 01-04-2022 14:20-0400 Diastolic blood pressure 80 mm[Hg] Dr. Emeka Horn Work Phone: [facility] Work Phone: 01-04-2022 14:20-0400 Heart rate 60 /min Dr. Emeka Horn Work Phone: [facility] Work Phone: 01-04-2022 14:20-0400 Respiratory rate 18 /min Dr. Emeka Horn Work Phone: [facility] Work Phone: 01-04-2022 14:20-0400 SaO2% (BldA) [Mass fraction] 96 % Dr. Emeka Horn Work Phone: [facility] Work Phone: 01-04-2022 14:20-0400 Systolic blood pressure 162 mm[Hg] Dr. Emeka Horn Work Phone: [facility] Work Phone: 01-04-2022 14:20-0400 Body temperature 98.2 [degF] Dr. Emeka Horn Work Phone: [facility] Work Phone: 01-04-2022 14:20-0400 Diastolic blood pressure 80 mm[Hg] Dr. Emeka Horn Work Phone: [facility] Work Phone: 01-04-2022 14:20-0400 Heart rate 60 /min Dr. Emeka Horn Work Phone: [facility] Work Phone: 01-04-2022 14:20-0400 Respiratory rate 18 /min Dr. Emeka Horn Work Phone: [facility] Work Phone: 01-04-2022 14:20-0400 SaO2% (BldA) [Mass fraction] 96 % Dr. Emeka Horn Work Phone: [facility] Work Phone: 01-04-2022 14:20-0400 Systolic blood pressure 162 mm[Hg] Dr. Emeka Horn Work Phone: [facility] Work Phone: 11-20-2021 13:08-0500 Body mass index (BMI) [Ratio] 29.2 kg/m2 Dr. Emeka Horn Work Phone: [facility] Work Phone: 11-20-2021 13:08-0500 Body temperature 97.3 [degF] Dr. Emeka Horn Work Phone: [facility] Work Phone: 11-20-2021 13:08-0500 Body weight 92.[address] Emeka Horn Work Phone: [facility] Work Phone: 11-20-2021 13:08-0500 Diastolic blood pressure 66 mm[Hg] Dr. Emeka Horn Work Phone: [facility] Work Phone: 11-20-2021 13:08-0500 Heart rate 65 /min Dr. Emeka Horn Work Phone: [facility] Work Phone: 11-20-2021 13:08-0500 Respiratory rate 18 /min Dr. Emeka Horn Work Phone: [facility] Work Phone: 11-20-2021 13:08-0500 SaO2% (BldA) [Mass fraction] 98 % Dr. Emeka Horn Work Phone: [facility] Work Phone: 11-20-2021 13:08-0500 Systolic blood pressure 134 mm[Hg] Dr. Emeka Horn Work Phone: [facility] Work Phone: 11-01-2021 12:49-0500 Body mass index (BMI) [Ratio] 29.5 kg/m2 Dr. Emeka Horn Work Phone: [facility] Work Phone: 11-01-2021 12:49-0500 Body weight 93.[address] Emeka Horn Work Phone: [facility] Work Phone: 11-01-2021 12:49-0500 Diastolic blood pressure 63 mm[Hg] Dr. Emeka Horn Work Phone: [facility] Work Phone: 11-01-2021 12:49-0500 Heart rate 67 /min Dr. Emeka Horn Work Phone: [facility] Work Phone: 11-01-2021 12:49-0500 Respiratory rate 22 /min Dr. Emeka Horn Work Phone: [facility] Work Phone: 11-01-2021 12:49-0500 SaO2% (BldA) [Mass fraction] 95 % Dr. Emeka Horn Work Phone: [facility] Work Phone: 11-01-2021 12:49-0500 Systolic blood pressure 135 mm[Hg] Dr. Emeka Horn Work Phone: [facility] Work Phone: 11-01-2021 10:11-0500 Body mass index (BMI) [Ratio] 29.4 kg/m2 Dr. Emeka Horn Work Phone: [facility] Work Phone: 11-01-2021 10:11-0500 Body temperature 97.1 [degF] Dr. Emeka Horn Work Phone: [facility] Work Phone: 11-01-2021 10:11-0500 Body weight 92.[address] Emeka Horn Work Phone: [facility] Work Phone: 11-01-2021 10:11-0500 Diastolic blood pressure 58 mm[Hg] Dr. Emeka Horn Work Phone: [facility] Work Phone: 11-01-2021 10:11-0500 Heart rate 68 /min Dr. Emeka Horn Work Phone: [facility] Work Phone: 11-01-2021 10:11-0500 Respiratory rate 18 /min Dr. Emeka Horn Work Phone: [facility] Work Phone: 11-01-2021 10:11-0500 SaO2% (BldA) [Mass fraction] 98 % Dr. Emeka Horn Work Phone: [facility] Work Phone: 11-01-2021 10:11-0500 Systolic blood pressure 127 mm[Hg] Dr. Emeka Horn Work Phone: [facility] Work Phone: 11-01-2021 00:36-0500 Diastolic blood pressure 72 mm[Hg] Dr. Emeka Horn Work Phone: [facility] Work Phone: 11-01-2021 00:36-0500 Systolic blood pressure 194 mm[Hg] Dr. Emeka Horn Work Phone: [facility] Work Phone: 10-31-2021 23:05-0500 Heart rate 68 /min Dr. Emeka Horn Work Phone: [facility] Work Phone: 10-31-2021 23:05-0500 Respiratory rate 18 /min Dr. Emeka Horn Work Phone: [facility] Work Phone: 10-31-2021 23:05-0500 SaO2% (BldA) [Mass fraction] 98 % Dr. Emeka Horn Work Phone: [facility] Work Phone: 10-31-2021 22:15-0500 Body temperature 98.2 [degF] Dr. Emeka Horn Work Phone: [facility] Work Phone: 10-31-2021 22:11-0500 Body mass index (BMI) [Ratio] 28.7 kg/m2 Dr. Emeka Horn Work Phone: [facility] Work Phone: 10-31-2021 22:11-0500 Body weight 90.[address] Emeka Horn Work Phone: [facility] Work Phone: Encounters Encounter Date Encounter Type Care Provider Facility Start: 05-31-2025 End: 05-31-2025 Mike CASTILLO -[facility] Work Phone: Start: 05-31-2025 End: 05-31-[address] Riaz Garrison MD Work Phone: -[facility] Start: 05-28-2025 End: 05-28-2025 ELECTROCARDIOGRAPH REPAIRER Kisha Silveira -Pulmonary Services/Neurology Work Phone: Start: 05-28-2025 End: 05-28-[address] Riaz Garrison MD Work Phone: -Pulmonary Services/Neurology Start: 05-28-2025 End: 05-28-2025 ambulatory Riaz Garrison Facility:[facility] Start: 05-19-2025 End: 05-19-2025 ROXANN Silveira -Laboratory Specimen Work Phone: Start: 05-19-2025 End: 05-19-2025 ROXANN Silveira -[facility] Work Phone: Start: 05-19-2025 End: 05-19-[address] Riaz Garrison MD Work Phone: -[facility] Start: 05-19-2025 End: 05-19-2025 ambulatory Kisha Silveira Facility:[facility] Start: 05-04-2025 End: 05-04-2025 Patient encounter procedure Vipul Richard Work Phone: Podiatry Comment on above: Onychomycosis (Prima ry Dx); Pain in toe of right foot; Pain in toe of left foot; Diabetic polyneuropathy associated with type 2 diabetes mellitus (HCC); PAD (peripheral artery disease) Start: 05-04-2025 End: 05-04-2025 ambulatory VIPUL RICHARD Facility:[facility] Start: 05-03-2025 End: 05-03-2025 Dr. Nicolas Alarcon MD -[facility] Work Phone: Start: 05-03-2025 End: 05-03-2025 ambulatory Riaz Garrison Facility:[facility] Start: 04-27-2025 End: 04-27-2025 Dr. Riaz Garrison MD -[facility] Work Phone: Start: 04-27-2025 End: 04-27-2025 ambulatory Riaz Garrison Facility:[facility] Start: 04-05-2025 End: 04-05-2025 Bijal Deluna ELECTROCARDIOGRAPH REPAIRER-C -Laboratory [place] Work Phone: Start: 04-05-2025 End: 04-05-2025 Bijal Deluna ELECTROCARDIOGRAPH REPAIRER-C -[facility] Work Phone: Start: 04-05-2025 End: 04-05-2025 ambulatory Riaz Garrison Facility:[facility] Start: 04-05-2025 End: 04-05-2025 ambulatory Riaz Garrison Facility:[facility] Start: 03-23-2025 End: 03-23-2025 Denise Cruz ELECTROCARDIOGRAPH REPAIRER-C -[facility] Work Phone: Start: 03-23-2025 End: 03-23-[address] Riaz Garrison MD Work Phone: [facility] Work Phone: Start: 03-23-2025 End: 03-23-2025 Patient encounter procedure Darryl Mallory DO Work Phone: Vascular Surgery Comment on above: Restless legs syndro me (Primary Dx); Peripheral arterial disease Start: 03-23-2025 End: 03-23-2025 ambulatory DARRYL MALLORY Facility:[facility] Start: 03-19-2025 End: 03-19-2025 Laura CARRERA -[facility] Work Phone: Start: 03-19-2025 End: 03-19-2025 ambulatory Riaz Meli Facility:[facility] Start: 03-18-2025 ambulatory Riaz Meli Facility :[facility] Start: 03-18-2025 Dr. Riaz Garrison MD - Physical Therapy Work Phone: Start: 03-15-2025 End: 03-15-2025 Bijal CASTILLO -[facility] Work Phone: Start: 03-15-2025 End: 03-15-2025 ambulatory Riaz Greenwich Facility:[facility] Start: 03-12-2025 End: 03-12-2025 Vipul CARRERA -[facility] Work Phone: Start: 03-12-2025 End: 03-12-2025 ambulatory Riaz [place] Facility:[facility] Start: 03-09-2025 Dr. Tracey Orantes MD - [facility] Work Phone: Start: 03-09-2025 Dr. Luiz Painter DO -[facility] Start: 03-08-2025 Dr. Tracey Orantes MD - [facility] Work Phone: Start: 03-07-2025 Dr. Fernandez Santana MD -[facility] Work Phone: Start: 03-06-2025 Dr. Romana Dudley MD -[facility] Start: 03-06-2025 Dr. Fernandez Santana MD -[facility] Work Phone: Start: 03-05-2025 Dr. Tracey Orantes MD - [facility] Work Phone: Start: 03-05-2025 ambulatory Riaz Meli Facility :[facility] Start: 03-04-2025 ambulatory Riaz [place] Facility :[facility] Start: 03-04-2025 End: 03-09-2025 Evaluation and management of inpatient Dr. Riaz Garrison MD Work Phone: [facility] Work Phone: Start: 03-04-2025 End: 03-09-2025 Dr. Hansel Gillis MD -Medical Surgical 3 Work Phone: Start: 03-04-2025 End: 03-04-2025 Puneet Dumas PA -[facility] Work Phone: Start: 03-04-2025 End: 03-04-[address] Riaz Garrison MD Work Phone: [facility] Work Phone: Start: 03-03-2025 End: 03-03-2025 Vipul CARRERA -Laboratory [facility] Start: 03-03-2025 End: 03-04-2025 ambulatory DARRYL MALLORY Facility:[facility] Start: 03-03-2025 End: 03-03-2025 ambulatory Vipul CARRERA Facility:[facility] Start: 02-26-2025 Dr. Riaz Garrison MD - Physical Therapy Work Phone: Start: 02-25-2025 End: 02-25-2025 ambulatory RIAZ GARRISON Facility:[facility] Start: 02-22-2025 [facility] Work [facility]: Start: 02-21-2025 Dr. Inocencio Perkins DO [facility] Work Phone: Start: 02-20-2025 Dr. Inocencio Perkins DO -[facility] Work Phone: Start: 02-19-2025 ambulatory Hansel Gillis Facility :[facility] Start: 02-19-2025 End: 02-22-2025 Evaluation and management of inpatient Dr. Riaz Garrison MD Work Phone: [facility] Work Phone: Start: 02-19-2025 End: 02-22-2025 Dr. Hansel Gillis MD -Progressive Care Unit Work Phone: Start: 02-18-2025 Dr. [facility] Work Phone: Start: 02-18-2025 ambulatory Riaz Garrison Facility :[facility] Start: 02-17-2025 Dr. Inocencio Perkins DO -[facility] Work Phone: Start: 02-17-2025 ambulatory Riaz Garrison Facility :[facility] Start: 02-16-2025 Dr. Inocencio Perkins DO -[facility] Work Phone: Start: 02-15-2025 ambulatory Nabil Pierre Facility:[facility] Start: 02-15-2025 Dr. Nabil Pierre MD -[facility] Start: 02-15-2025 ambulatory Raymond Quiros ty:[facility] Start: 02-15-2025 End: 02-18-2025 Evaluation and management of inpatient Dr. Riaz Garrison MD Work Phone: [facility] Work Phone: Start: 02-15-2025 End: 02-18-2025 Dr. Raymond Teague DO -Progressive Care Unit Work Phone: Start: 02-12-2025 Dr. Riaz Garrison MD - Physical Therapy Work Phone: Start: 02-09-2025 End: 02-09-2025 Patient encounter procedure Darryl Mallory DO Work Phone: Vascular Surgery Comment on above: Peripheral arterial disease (Primary Dx); Aorto-iliac atherosclerosis; S/P aorta repair Start: 02-09-2025 End: 02-09-2025 ambulatory RIAZ GARRISON Facility:[facility] Start: 02-08-2025 Dr. Riaz Garrison MD - Physical Therapy Work Phone: Start: 02-06-2025 End: 02-06-[address] Riaz Garrison MD Work Phone: [facility] Work Phone: Start: 02-06-2025 End: 02-06-2025 Dr. Riaz Garrison MD -Laboratory, Specimen Work Phone: Start: 02-06-2025 End: 02-06-2025 ambulatory Riaz Garrison Facility:[facility] Start: 02-04-2025 End: 02-04-2025 Laura CARRERA -[facility] Work Phone: Start: 02-04-2025 End: 02-04-2025 ambulatory Riaz Garrison Facility:[facility] Start: 02-01-2025 End: 02-01-2025 Dr. Riaz Garrison MD -Laboratory, [place] Start: 02-01-2025 End: 02-01-2025 Dr. Riaz Garrison MD -[facility] Work Phone: Start: 02-01-2025 End: 02-01-2025 ambulatory Riaz Garrison Facility:[facility] Start: 02-01-2025 End: 02-01-2025 ambulatory Riaz Garrison Facility:[facility] Start: 01-29-2025 End: 01-29-2025 Dr. Riaz Garrison MD Work Phone: -Emergency Department Work Phone: Start: 01-29-2025 End: 01-29-2025 Emergency department patient visit Dr. Riaz Garrison MD Work Phone: [facility] Work Phone: Start: 01-27-2025 End: 01-27-2025 ambulatory DARRYL MALLORY Facility:[facility] Start: 01-06-2025 End: 01-06-2025 Dr. Riaz Garrison MD -[facility] Work Phone: Start: 01-06-2025 End: 01-06-2025 ambulatory Riaz Garrison Facility:[facility] Start: 01-01-2025 End: 01-01-2025 ROXANN Silveira -[facility] Work Phone: Start: 01-01-2025 End: 01-01-2025 ambulatory Riaz Garrison Facility:[facility] Start: 12-28-2024 End: 12-28-2024 Dr. Riaz Garrison MD -[facility] Work Phone: Start: 12-28-2024 End: 12-28-[address] Riaz Garrison MD Work Phone: [facility] Work Phone: Start: 12-28-2024 End: 12-28-2024 ambulatory Riaz Garrison Facility:[facility] Start: 12-22-2024 End: 12-22-2024 ambulatory [facility] Facility:[facility] Start: 12-22-2024 End: 12-22-2024 Patient encounter procedure Vipul Richard Work Phone: Podiatry Comment on above: Onychomycosis (Prima ry Dx); Pain in toe of right foot; Pain in toe of left foot; Diabetic polyneuropathy associated with type 2 diabetes mellitus (HCC); PAD (peripheral artery disease) ([facility]); Xerosis cutis Start: 12-17-2024 Dr. Inocencio Perkins DO [facility] Work Phone: Start: 12-16-2024 Dr. Inocencio Perkins DO [facility] Work Phone: Start: 12-15-2024 Dr. Inocencio Perkins [facility] Work Phone: Start: 12-14-2024 Dr. Inocencio Perkins DO [facility] Work Phone: Start: 12-14-2024 ambulatory Riaz Garrison Facility :[facility] Start: 12-14-2024 End: 12-17-2024 Evaluation and management of inpatient Dr. Riaz Garrison MD Work Phone: [facility] Work Phone: Start: 12-14-2024 End: 12-17-2024 Dr. Inocencio Perkins -[facility] Surgical 3 Work Phone: Start: 11-30-2024 End: 11-30-2024 Mike CASTILLO -[facility] Work Phone: Start: 11-30-2024 End: 11-30-2024 ambulatory Riaz Green[place] Facility:[facility] Start: 11-24-2024 End: 11-24-2024 Miracle Pearce ELECTROCARDIOGRAPH REPAIRER-C -Laboratory, [place] Work Phone: Start: 11-24-2024 End: 11-24-2024 ambulatory Riaz Meli Facility:[facility] Start: 11-03-2024 End: 11-03-2024 ROXANN Silveira -Sleep Lab Work Phone: Start: 11-03-2024 End: 11-03-2024 ambulatory Riaz [place] Facility:[facility] Start: 10-16-2024 End: 10-16-2024 ambulatory VIPUL RICHARD Facility:[facility] Start: 10-16-2024 End: 10-16-2024 Patient encounter procedure Vipul Richard Work Phone: Podiatry Comment on above: Onychomycosis (Prima ry Dx); Pain in toe of right foot; Pain in toe of left foot; Diabetic polyneuropathy associated with type 2 diabetes mellitus (HCC); PAD (peripheral artery disease) ([facility]) Start: 10-06-2024 End: 10-06-2024 ROXANN Silveira -[facility] Work Phone: Start: 10-06-2024 End: 10-06-2024 ambulatory Riaz Meli Facility:[facility] Start: 10-06-2024 Tessy Clark CO -[facility] Work Phone: Start: 10-06-2024 ambulatory Riaz Greenwich Facility :[facility] Start: 08-31-2024 End: 08-31-2024 Dr. Riaz Garrison MD -Ultrasound, [facility] Work Phone: Start: 08-31-2024 End: 08-31-2024 ambulatory Riazlilia Jeffersonlay Facility:[facility] Start: 08-24-2024 End: 08-24-2024 Dr. Riaz Garrison MD -Laboratory, [place] Start: 08-24-2024 End: 08-24-[address] Riaz Garrison MD [facility] Start: 08-24-2024 End: 08-24-2024 Dr. Riaz Garrison MD -[facility] Work Phone: Start: 08-24-2024 End: 08-24-2024 ambulatory Riaznehemiah Jeffersonlay Facility:[facility] Start: 08-24-2024 End: 08-24-2024 ambulatory Riaz Garrison Facility:[facility] Start: 08-14-2024 End: 08-14-2024 ambulatory VIPUL RICHARD Facility:[facility] Start: 08-14-2024 End: 08-14-2024 Patient encounter procedure Vipul Richard Work Phone: Podiatry Comment on above: Onychomycosis (Prima ry Dx); Pain in toe of right foot; Pain in toe of left foot; Diabetic polyneuropathy associated with type 2 diabetes mellitus (HCC) Start: 07-15-2024 End: 07-15-2024 ambulatory Riaz Garrison Facility:[facility] Start: 07-06-2024 ambulatory Riaz Meli Facility :[facility] Start: 06-30-2024 End: 06-30-2024 Patient encounter procedure Darryl Mallory DO Work Phone: Vascular Surgery Comment on above: Peripheral arterial disease (HCC) (Primary Dx) Start: 06-30-2024 End: 06-30-2024 ambulatory DARRYL MALLORY Facility:[facility] Start: 06-28-2024 End: 06-28-2024 ambulatory Riaznehemiah Garrison Facility:[facility] Start: 06-28-2024 End: 06-29-2024 ambulatory Riaz Greenwich Facility:[facility] Start: 06-25-2024 End: 06-25-2024 Emergency department patient visit Riaz Garrison Facility:[facility] Start: 06-16-2024 End: 06-16-2024 ambulatory Riaz Meli Facility:[facility] Start: 06-11-2024 End: 06-11-2024 ambulatory VIPUL RICHARD Facility:[facility] Start: 06-11-2024 End: 06-11-2024 Patient encounter procedure Vipul Richard Work Phone: Podiatry Comment on above: Onychomycosis (Prima ry Dx); Pain in toe of right foot; Pain in toe of left foot; Diabetic polyneuropathy associated with type 2 diabetes mellitus (HCC) Start: 03-30-2024 End: 03-30-2024 Patient encounter procedure Vipul Richard Work Phone: Podiatry Comment on above: Onychomycosis (Prima ry Dx); Pain in toe of right foot; Pain in toe of left foot; PAD (peripheral artery disease) (HCC); Diabetic polyneuropathy associated with type 2 diabetes mellitus (HCC) Start: 03-05-2024 ambulatory [facility] Start: 03-05-2024 End: 03-05-2024 Subsequent hospital visit by physician Josemanuel Kim MD Work Phone: [facility] Comment on above: Mass of colon [K63.8 9] Start: 02-26-2024 Telephone encounter Josemanuel neri MD Work Phone: [facility] Comment on above: Procedure (COLONOSCO PY /) Nephrology Clearance Start: 02-26-2024 End: 02-26-2024 Patient encounter procedure Josemanuel Kim MD Work Phone: [facility] Comment on above: Colonic mass (Primar y Dx) Start: 02-26-2024 End: 02-26-2024 ambulatory JOSEMANUEL KIM Facility:[facility] Start: 02-13-2024 End: 02-13-[address] Riaz Garrison Work Phone: [facility] Work Phone: Start: 02-13-2024 End: 02-13-2024 Dr. Riaz Garrison Work Phone: [facility]-Medical Out Work Phone: Start: 02-12-2024 Dr. Riaz sadler Work Phone: [facility]-Laboratory Work Phone: Start: 02-12-2024 End: 02-12-2024 Dr. Riaz Garrison Work Phone: [facility] Work Phone: Start: 02-11-2024 End: 02-11-2024 Emergency department patient visit Dr. Riaz Garrison Work Phone: [facility] Work Phone: Start: 02-11-2024 End: 02-11-2024 Dr. Riaz Garrison Work Phone: [facility]-Emergency Department Work Phone: Start: 02-05-2024 End: 02-05-2024 Dr. Riaz Garrison Work Phone: [facility] Internal Medicine Work Phone: Start: 02-04-2024 End: 02-04-[address] Riaz Garrison Work Phone: [facility] Work Phone: Start: 02-04-2024 End: 02-04-2024 Dr. Riaz Garrison Work Phone: [facility] Work Phone: Start: 01-29-2024 Dr. Riaz sadler Work Phone: [facility] Work Phone: Start: 01-29-2024 Dr. Riaz sadler Work Phone: [facility] Start: 01-28-2024 Dr. Riaz sadler Work Phone: [facility] Work Phone: Start: 01-27-2024 Dr. Riaz sadler Work Phone: [facility] Work Phone: Start: 01-27-2024 Dr. Riaz sadler Work Phone: [facility] Start: 01-26-2024 End: 01-29-2024 Evaluation and management of inpatient Dr. Riaz Garrison Work Phone: [facility] Work Phone: Start: 01-26-2024 End: 01-29-2024 Dr. R[facility]arrison [facility] Work Phone: Start: 01-20-2024 End: 01-20-2024 Dr. Riaz Garrison Work Phone: [facility] Internal Medicine Work Phone: Start: 01-16-2024 End: 01-16-[address] Riaz Garrison Work Phone: [facility] Work Phone: Start: 01-16-2024 End: 01-16-2024 Dr. Riaz Garrison Work Phone: [facility] Work Phone: Start: 01-07-2024 End: 01-07-[address] Riaz Garrison Work Phone: [facility] Work Phone: Start: 01-07-2024 End: 01-07-2024 Dr. Rosa Collins Work Phone: [facility] Work Phone: Start: 01-02-2024 End: 01-02-[address] Rosa Collins Work Phone: [facility] Work Phone: Start: 01-02-2024 End: 01-02-2024 Dr. Rosa Collins Work Phone: [facility]-Radiology, [place] Work Phone: Start: 01-02-2024 End: 01-02-2024 Dr. Rosa Collins Work Phone: [facility] Work Phone: Start: 01-01-2024 End: 01-01-2024 Dr. Rosa Collins Work Phone: [facility]-Pulmonary Medicine [facility] Work Phone: Start: 12-27-2023 End: 12-27-[address] Rosa Collins Work Phone: [facility] Work Phone: Start: 12-27-2023 End: 12-27-2023 Dr. Rosa Collins Work Phone: [facility]-Laboratory, [facility] Start: 12-26-2023 End: 12-26-2023 Patient encounter procedure Vipul Sanchezmendez Work Phone: Podiatry Comment on above: Onychomycosis (Prima ry Dx); Pain in toe of right foot; Pain in toe of left foot; PAD (peripheral artery disease) (HCC); Diabetic polyneuropathy associated with type 2 diabetes mellitus (HCC) Start: 12-26-2023 End: 12-26-2023 Dr. Rosa Collins Work Phone: [facility] Work Phone: Start: 12-25-2023 End: 12-25-2023 Emergency department patient visit Dr. Rosa Collins Work Phone: [facility] Work Phone: Start: 12-25-2023 End: 12-25-2023 Dr. Rosa Collins Work Phone: [facility]-Emergency Department Work Phone: Start: 12-21-2023 End: 12-21-[address] Rosa Collins Work Phone: [facility] Work Phone: Start: 12-21-2023 End: 12-21-2023 Dr. Rosa Collins Work Phone: [facility]-Laboratory, Specimen Work Phone: Start: 12-19-2023 End: 12-19-[address] Rosa Collins Work Phone: [facility] Work Phone: Start: 12-19-2023 End: 12-19-2023 Dr. Rosa Collins Work Phone: [facility]-Laboratory, [facility] Start: 12-16-2023 End: 12-16-[address] Rosa Collins Work Phone: [facility] Work Phone: Start: 12-16-2023 End: 12-16-2023 Dr. Rosa Collins Work Phone: [facility] Internal Medicine Work Phone: Start: 12-12-2023 End: 12-12-2023 Dr. Rosa Collins Work Phone: [facility] Internal Medicine Work Phone: Start: 12-12-2023 End: 12-12-2023 Patient encounter procedure Rene Zapata MD Work Phone: Vascular Surgery Comment on above: PAD (peripheral quin ry disease) (HCC) (Primary Dx); Atherosclerosis of [place] coronary artery of [place] heart without angina pectoris; Peripheral arterial disease (HCC); Mixed hyperlipidemia; Symptom of leg swelling Start: 12-02-2023 Dr. Rosa crocker Work Phone: [facility] Start: 12-02-2023 End: 12-02-2023 Dr. 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); PAD (peripheral artery disease) (HCC); Superficial femoral artery occlusion (HCC); Abnormal ankle brachial index (MARILEE); Femoral artery thrombosis (HCC) Start: 11-25-2023 End: 11-25-2023 ambulatory RENE ZAPATA Facility:[facility] [place] Start: 11-22-2023 Telephone encounter Rene madden MD Work Phone: [facility] Cardiac, Thoracic and Vascular Specialties Comment on above: Request to return ca ll (Request to return call.) Start: 11-11-2023 Preoperative state Rene livingston MD Work Phone: [facility] Work Phone: Start: 11-09-2023 End: 11-15-2023 Evaluation and management of inpatient RENE ZAPATA Facility:[facility] [place] Start: 11-05-2023 End: 11-05-2023 ambulatory BIJAL ZEE Facility:[facility] [place] Start: 11-05-2023 End: 11-05-2023 ambulatory RENE ZAPATA Facility:[facility] [place] Start: 10-30-2023 Encounter for other preprocedural examination JOSEMANUEL KIM [facility] Start: 10-23-2023 End: 10-23-2023 Dr. Rosa Collins Work Phone: [facility]-Pulmonary Medicine [facility] Work Phone: Start: 10-15-2023 End: 10-15-[address] Riaz Garrison Work Phone: [facility] Work Phone: Start: 10-15-2023 End: 10-15-2023 Dr. Riaz Garrison Work Phone: [facility] Internal Medicine Work Phone: Start: 10-08-2023 Dr. Riaz sadler Work Phone: [facility] Work Phone: Start: 10-01-2023 Non-patient / Non-visit Dr. Dahl Work Phone: [facility] Start: 10-01-2023 End: 10-01-[address] Riaz Garrison Work Phone: [facility] Work Phone: Start: 10-01-2023 End: 10-01-[address] Riaz Garrison [facility] Work Phone: Start: 10-01-2023 End: 10-01-2023 Dr. Riaz Garrison Work Phone: [facility] Start: 09-16-2023 End: 09-16-[address] Riaz Garrison Work Phone: [facility] Internal Medicine Work Phone: Start: 09-16-2023 End: 09-16-2023 Dr. Riaz Garrison Work Phone: [facility] Internal Medicine Work Phone: Start: 09-13-2023 End: 09-13-[address] Riaz Garrison Work Phone: [facility] Work Phone: Start: 09-13-2023 End: 09-13-2023 Dr. Riaz Garrison Work Phone: [facility] Work Phone: Start: 09-12-2023 End: 09-12-2023 Evaluation and management of inpatient Dr. Riaz Garrison [facility] Work Phone: Start: 09-12-2023 End: 09-12-[address] Riaz Garrison Work Phone: [facility] Work Phone: Start: 09-12-2023 End: 09-12-2023 Dr. Riaz Garrison Work Phone: [facility]-Progressive Care Unit Work Phone: Start: 09-12-2023 Non-patient / Non-visit Dr. Dahl Work Phone: [facility] Inpatient Physicians Work Phone: Start: 09-12-2023 Dr. Riaz sadler Work Phone: [facility] Inpatient Physicians Work Phone: Start: 09-06-2023 End: 09-06-2023 Orders Only Rene Zapata MD Work Phone: Vascular Surgery Comment on above: Peripheral vascular disease (HCC) (Primary Dx) Encounter for screen ing for cardiovascular disorders (Primary Dx) Start: 08-27-2023 End: 08-27-[address] Riaz Garrison Work Phone: [facility] Work Phone: Start: 08-27-2023 End: 08-27-2023 Dr. Riaz Garrison Work Phone: [facility] Work Phone: Start: 08-26-2023 End: 08-26-[address] Riaz Garrison Work Phone: [facility] Work Phone: Start: 08-26-2023 End: 08-26-[address] Riaz Garrison Work Phone: [facility] Work Phone: Start: 08-26-2023 End: 08-26-2023 Dr. 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 Riaz Garrison Work Phone: [facility] Work Phone: Start: 08-02-2023 End: 08-02-[address] Riaz Garrison Work Phone: [facility] Work Phone: Start: 08-02-2023 End: 08-02-2023 Dr. Raiz Garrison Work Phone: [facility], [facility] Work Phone: Start: 07-18-2023 End: 07-18-[address] Riaz Garrison Work Phone: [facility] Work Phone: Start: 07-18-2023 End: 07-18-[address] Riaz Garrison Work Phone: [facility] Start: 07-18-2023 End: 07-18-2023 Dr. Riaz Garrison Work Phone: [facility] Start: 07-18-2023 End: 07-18-[address] Riaz Garrison Work Phone: [facility] Internal Medicine Work Phone: Start: 07-18-2023 End: 07-18-2023 Dr. Riaz Garrison Work Phone: [facility] Internal Medicine Work Phone: Start: 05-29-2023 End: 05-29-[address] Riaz Garrison Work Phone: [facility] Work Phone: Start: 05-29-2023 End: 05-29-[address] Riaz Garrison Work Phone: [facility] [place] Start: 05-29-2023 End: 05-29-2023 Dr. Riaz Garrison Work Phone: [facility] [place] Start: 05-16-2023 End: 05-16-[address] Riaz Garrison Work Phone: [facility] Work Phone: Start: 05-16-2023 End: 05-16-[address] Riaz Garrison Work Phone: [facility] Start: 05-16-2023 End: 05-16-2023 Dr. Riaz Garrison Work Phone: [facility] Start: 05-16-2023 End: 05-16-[address] Riaz Garrison Work Phone: [facility] Internal Medicine Work Phone: Start: 05-16-2023 End: 05-16-2023 Dr. Riaz Garrison Work Phone: [facility] Internal Medicine Work Phone: Start: 05-14-2023 Telephone encounter Darryl Mallory DO Work Phone: Vascular Surgery Comment on above: Orders Start: 05-10-2023 Non-patient / Non-visit Dr. Dahl Work Phone: [facility] Heart [facility] Work Phone: Start: 05-10-2023 Dr. Riaz sadler Work Phone: [facility] Work Phone: Start: 05-08-2023 Non-patient / Non-visit Dr. Dahl Work Phone: [facility] Start: 05-08-2023 End: 05-08-[address] Riaz Garrison Work Phone: [facility] Work Phone: Start: 05-08-2023 End: 05-08-[address] Riaz Garrison [facility] Work Phone: Start: 05-08-2023 End: 05-08-2023 Dr. Riaz Garrison Work Phone: [facility] Start: 05-06-2023 End: 05-06-[address] Riaz Garrison Work Phone: [facility] Work Phone: Start: 05-06-2023 End: 05-06-2023 Dr. Riaz Garrison Work Phone: [facility] Work Phone: Start: 04-16-2023 End: 04-16-[address] Riaz Garrison Work Phone: [facility] [place] Work Phone: Start: 03-29-2023 End: 03-29-2023 Patient encounter procedure Vipul Richard Work Phone: Podiatry Comment on above: Onychomycosis (Prima ry Dx); Pain in toe of right foot; Pain in toe of left foot; Diabetic polyneuropathy associated with type 2 diabetes mellitus (HCC); PAD (peripheral artery disease) (HCC) Start: 02-14-2023 End: 02-14-[address] Riaz Garrison Work Phone: [facility] Orthopaedic Specia Work Phone: Start: 02-08-2023 Telephone encounter Darryl Mallory DO Work Phone: Vascular Surgery Comment on above: Results Start: 02-05-2023 Telephone encounter Darryl Mallory DO Work Phone: Vascular Surgery Comment on above: Opened In Error Start: 02-05-2023 End: 02-05-2023 Patient encounter procedure Darryl Mallory DO Work Phone: Vascular Surgery Comment on above: Peripheral arterial disease (HCC) (Primary Dx) Start: 01-17-2023 End: 01-17-[address] Riaz Garrison Work Phone: [facility] Internal Medicine Work Phone: Start: 12-14-2022 End: 12-14-2022 Patient encounter procedure Vipul Richard Work Phone: Podiatry Comment on above: Onychomycosis (Prima ry Dx); Pain in toe of right foot; Pain in toe of left foot; Diabetic polyneuropathy associated with type 2 diabetes mellitus (HCC); PAD (peripheral artery disease) (HCC) Start: 12-10-2022 End: 12-10-[address] Riaz Garrison Work Phone: [facility] Work Phone: Start: 12-10-2022 End: 12-10-[address] Riaz Garrison Work Phone: [facility] Start: 11-15-2022 End: 11-15-[address] Riaz Garrison Work Phone: [facility] Orthopaedic Specia Start: 11-06-2022 End: 11-06-[address] Riaz Garrison Work Phone: [facility] Start: 10-18-2022 End: 10-18-[address] Riaz Garrison Work Phone: [facility]-Pulmonary Medicine [facility] Start: 09-19-2022 End: 09-19-[address] Riaz Garrison Work Phone: [facility] Internal Medicine Start: 09-06-2022 End: 09-06-2022 Patient encounter procedure Vipul Richard Work Phone: Podiatry Comment on above: Onychomycosis (Prima ry Dx); Pain in toe of right foot; Pain in toe of left foot; Diabetic polyneuropathy associated with type 2 diabetes mellitus (HCC); PAD (peripheral artery disease) (HCC) Start: 08-03-2022 End: 08-03-[address] Emeka Horn Work Phone: [facility] Work Phone: Start: 08-03-2022 End: 08-03-2022 Dr. Emeka Horn Work Phone: [facility]-Laboratory Start: 08-03-2022 End: 08-03-2022 Dr. Emeka Horn Work Phone: [facility] Start: 07-04-2022 End: 07-04-[address] Emeka Horn Work Phone: [facility] Work Phone: Start: 07-04-2022 End: 07-04-2022 Dr. Emeka Horn [facility] Phone[facility] Start: 06-25-2022 End: 06-25-2022 Dr. Emeka Horn Work Phone: [facility] Start: 06-20-2022 End: 06-20-2022 Dr. Emeka Horn Work Phone: [facility] Internal Medicine Start: 06-19-2022 End: 06-19-[address] Emeka Horn Work Phone: [facility] Work Phone: Start: 06-19-2022 End: 06-19-2022 Dr. Emeka Horn Work Phone: [facility]-Laboratory Start: 06-19-2022 End: 06-19-2022 Dr. Emeka Horn Work Phone: [facility] Start: 06-14-2022 Dr. Emeka Santillan Work Phone: [facility] Inpatient Physicians Start: 06-14-2022 Dr. Emeka Santillan Work Phone: [facility] Start: 06-13-2022 Dr. Emeka Santillan Work Phone: [facility] Start: 06-12-2022 Dr. Emeka Santillan Work Phone: [facility] Start: 06-11-2022 Dr. Emeka Santillan Work Phone: [facility] Start: 06-11-2022 Dr. Emeka Santillan Work Phone: [facility] Start: 06-10-2022 Dr. Emeka Santillan Work Phone: [facility] Start: 06-09-2022 End: 06-14-2022 Evaluation and management of inpatient Dr. Emeka Horn Work Phone: [facility] Work Phone: Start: 06-09-2022 End: 06-14-2022 Dr. Emeka Horn Work Phone: [phone] [place] [address]-Progressive Care Unit Start: 06-06-2022 Non-patient / Non-visit Dr. Agnes Horn Work Phone: [facility] Start: 06-06-2022 Dr. Emeka Santillan Work Phone: [facility] Start: 06-05-2022 Non-patient / Non-visit Dr. Agnes Horn Work Phone: [facility] Start: 06-05-2022 Dr. Emeka Santillan Work Phone: [facility] Start: 06-05-2022 Non-patient / Non-visit Dr. Agnes Horn Work Phone: [facility] Start: 06-05-2022 Dr. Emeka Santillan Work Phone: [facility] Start: 06-04-2022 Non-patient / Non-visit Dr. Agnes Horn Work Phone: [facility] Start: 06-04-2022 Dr. Emeka Santillan Work Phone: [facility] Start: 06-04-2022 Non-patient / Non-visit Dr. Agnes Horn Work Phone: [facility] Start: 06-04-2022 End: 06-06-2022 Dr. Emeka Horn Work Phone: [facility] Start: 06-03-2022 End: 06-06-2022 Evaluation and management of inpatient Dr. Emeka Horn Work Phone: [facility] Care Unit Start: 06-03-2022 End: 06-06-2022 Dr. Emeka Horn Work Phone: [facility] Start: 06-03-2022 Non-patient / Non-visit Dr. Agnes Horn Work Phone: [facility] Start: 06-03-2022 Dr. Emeka Santillan Work Phone: [facility] Start: 06-03-2022 Evaluation and manag ement of inpatient Dr. Emeka Horn Work Phone: [facility] Start: 06-03-2022 Non-patient / Non-visit Dr. Agnes Horn Work Phone: [facility] Start: 06-03-[address] Chacho Horn Work Phone: [facility] Work Phone: Start: 06-03-2022 Dr. Emeka Santillan Work Phone: [facility] Start: 05-31-2022 End: 05-31-2022 Patient encounter procedure Vipul Richard Work Phone: Podiatry Comment on above: Onychomycosis (Prima ry Dx); Pain in toe of right foot; Pain in toe of left foot; Diabetic polyneuropathy associated with type 2 diabetes mellitus (HCC) Start: 05-30-2022 End: 05-30-[address] Emeka Horn Work Phone: [facility] Start: 05-30-2022 End: 05-30-2022 Dr. Emeka Horn Work Phone: [facility] Start: 05-28-2022 End: 05-28-2022 Emergency department patient visit Dr. Emeka Horn [facility] Start: 05-28-2022 End: 05-28-2022 Dr. Emeka Horn [facility] Start: 05-25-2022 End: 05-25-2022 Patient encounter procedure Emeka Horn MD Work Phone: Internal Medicine [place] Comment on above: Respiratory failure, unspecified chronicity, unspecified whether with hypoxia or hypercapnia (HCC) (Primary Dx); Chronic pulmonary edema; Essential hypertension; Chronic obstructive pulmonary disease with acute exacerbation (HCC); Stage 3a chronic kidney disease (HCC); S/P TURP (status post transurethral resection of prostate); 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) Start: 05-22-2022 End: 05-22-2022 Emergency department patient visit Dr. Emeka Horn Work Phone: [facility]-Emergency Department Start: 05-22-2022 End: 05-22-2022 Dr. Emeka Horn Work Phone: [facility]-Emergency Department Start: 05-16-2022 Non-patient / Non-visit Dr. Agnes Horn Work Phone: [facility] Start: 05-16-2022 Dr. Emeka Santillan Work Phone: [facility] Start: 05-15-2022 Non-patient / Non-visit Dr. Agnes Horn Work Phone: [facility] Start: 05-15-2022 Dr. Emeka Santillan Work Phone: [facility] Start: 05-15-2022 Non-patient / Non-visit Dr. Agnes Horn Work Phone: [facility] Start: 05-15-2022 End: 05-16-2022 Evaluation and management of inpatient Dr. Emeka Horn [facility] Start: 05-15-2022 End: 05-16-2022 Dr. Emeka Horn Work Phone: [facility] Care Unit Start: 05-14-2022 End: 05-14-2022 Patient encounter procedure Dominique Reese APRN.CNS Work Phone: Internal Medicine [place] Comment on above: Chronic idiopathic c onstipation (Primary Dx); S/P TURP (status post transurethral resection of prostate); Altered bowel habits Start: 05-07-2022 End: 05-07-[address] Emeka Horn Work Phone: [facility] Work Phone: Start: 05-07-[address] Chelsea Horn Work Phone: [facility]-Physical Therapy Start: 05-07-2022 End: 05-07-2022 Dr. Emeka Horn Work Phone: [facility]-Physical Therapy Start: 05-02-2022 End: 05-02-[address] Emeka Horn Work Phone: [facility] Start: 05-02-2022 End: 05-02-2022 Dr. Emeka Horn Work Phone: [facility] Start: 05-02-2022 End: 05-02-2022 Subsequent hospital visit by physician Xr [facility] [place] [employer] Work Phone: Radiology Comment on above: Chronic idiopathic c onstipation [K59.04] Start: 04-26-2022 End: 04-26-2022 Subsequent hospital visit by physician Xr [facility] [employer] Work Phone: Radiology Comment on above: Chronic idiopathic c onstipation [K59.04] Start: 04-26-2022 End: 04-26-2022 Patient encounter procedure Colton Mendez MD Work Phone: General Surgery Comment on above: Chronic idiopathic c onstipation; Altered bowel habits Start: 04-22-2022 End: 04-22-2022 Emergency department patient visit Dr. Emeka Horn [facility] Start: 04-22-2022 End: 04-22-2022 Dr. Emeka Horn [facility] Start: 04-13-[address] Chelsea Horn [facility] Start: 04-12-2022 End: 04-12-2022 Patient encounter procedure Dominiquemao Reese APRN.DIRECTOR OF STRATEGY [employer] MOBILE Work Phone: Internal Medicine [place] Comment on above: Chronic idiopathic c onstipation (Primary Dx); Altered bowel habits; Nausea and vomiting, unspecified vomiting type Start: 04-03-[address] Chelsea Horn [facility] Start: 04-02-2022 End: 04-02-[address] Emeka Horn Work Phone: [facility]-Laboratory, Specimen Start: 04-02-2022 End: 04-02-2022 Dr. Emeka Horn [facility] Phone[facility] Start: 03-29-2022 End: 03-29-2022 Emergency department patient visit Dr. Emeka Horn Work Phone: [facility]-Emergency Department Start: 03-29-2022 End: 03-29-2022 Dr. Emeka Horn Work Phone: [facility]-Emergency Department Start: 03-28-2022 End: 03-28-2022 Patient encounter procedure Emeka Horn MD Work Phone: Internal Medicine [place] Comment on above: S/P TURP (status pos t transurethral resection of prostate) (Primary Dx); Chronic idiopathic constipation; Well controlled type 2 diabetes mellitus with neurological manifestations (HCC); Allergic rhinitis, unspecified seasonality, unspecified trigger; Essential hypertension Start: 03-26-[address] Chelsea Horn Work Phone: [facility]-Physical Therapy Start: 03-09-2022 End: 03-22-2022 Evaluation and management of inpatient Dr. Emeka Horn Work Phone: [facility]-Transitiona l Care Unit Start: 03-09-2022 End: 03-22-2022 Dr. Emeka Horn Work Phone: [facility] Start: 03-07-2022 End: 03-09-2022 Evaluation and management of inpatient Dr. Emeka Horn [facility] Phone[facility] Start: 03-07-2022 End: 03-09-2022 Dr. Emeka Horn Work Phone[facility] Start: 02-21-2022 End: 02-21-[address] Emeka Horn Work Phone[facility] Start: 02-21-2022 End: 02-21-2022 Dr. Emeka Horn Work Phone: [facility] Start: 02-19-2022 End: 02-19-[address] Emeka Horn Work Phone: [facility]-Laboratory, Specimen Start: 02-19-2022 End: 02-19-2022 Dr. Emeka Horn [facility] Phone[facility] Start: 02-13-2022 End: 02-13-[address] Emeka Horn Work Phone: [facility] Scan, [facility] Start: 02-13-2022 End: 02-13-2022 Dr. Emeka Horn Work Phone: [facility] Start: 02-07-2022 End: 02-07-2022 Patient encounter procedure Samantha Aguirre APRN.CNP Work Phone: Internal Medicine [place] Comment on above: Well controlled type 2 diabetes mellitus with neurological manifestations (HCC) (Primary Dx); Stage 3a chronic kidney disease (HCC); Essential hypertension; Anemia, unspecified type; Obesity, Class I, BMI 30-34.9; Peripheral arterial disease (HCC); BPH associated with nocturia Start: 02-06-2022 End: 02-06-[address] Emeka Horn [facility] Start: 02-02-2022 End: 02-02-2022 Patient encounter procedure Vipul Richard Work Phone: Podiatry Comment on above: Onychomycosis (Prima ry Dx); Pain in toe of right foot; Pain in toe of left foot; Diabetic polyneuropathy associated with type 2 diabetes mellitus (HCC); PAD (peripheral artery disease) (HCC) Start: 01-25-2022 End: 01-25-[address] Emeka Horn Work Phone: [facility]-Laboratory Start: 01-25-2022 End: 01-25-[address] Emeka Horn Work Phone: [facility] Start: 01-18-2022 End: 01-18-[address] Emeka Horn [facility] Phone[facility] Start: 01-17-2022 End: 01-17-[address] [facility]me[facility] Horn [facility] Start: 01-09-2022 End: 01-09-2022 Patient encounter procedure Darryl Mallory DO Work Phone: Vascular Surgery Comment on above: Peripheral arterial disease (HCC) (Primary Dx) Start: 01-04-2022 End: 01-04-[address] Emeka Horn [facility] Start: 01-04-2022 End: 01-04-[address] Emeka Horn Work Phone: [facility] Start: 12-28-2021 Telephone encounter Darryl Mallory DO Work Phone: Vascular Surgery Comment on above: Appointment (testing ) Start: 12-04-2021 Non-patient / Non-visit Dr. Agnes Hron Work Phone: [facility] Start: 12-04-2021 End: 12-04-[address] Emeka Horn Work Phone: [facility]-Cardiovasc[facility] lar Services Start: 11-20-2021 End: 11-20-[address] Emeka Horn Work Phone: [facility]-Pulmonary Medicine [facility] Start: 11-06-2021 End: 11-06-[address] Emeka Horn Work Phone: [facility] [place] Start: 11-01-2021 End: 11-01-[address] Emeka Horn Work Phone: [facility] Start: 11-01-2021 End: 11-01-[address] Emeka Horn Work Phone: [facility] Start: 10-31-2021 End: 11-01-2021 Emergency department patient visit Dr. Emeka Horn Work Phone: [facility]-Emergency Department Procedures Date Procedure Procedure Detail Performing Clinician Start: 05-28-2025 Mean corpuscular hemoglobin concentration determination Dr. Riaz Garrison MD Work Phone: Start: 05-28-2025 Platelet mean volume determination Dr. Riaz Garrison MD Work Phone: Start: 05-28-2025 Total iron binding capacity measurement Dr. Riaz Garrison MD Work Phone: Start: 05-19-2025 Gram stain microscopy D ezra Garrison MD Work Phone: Start: 05-19-2025 [address] micro[address] l culture Dr. Riaz Garrison MD Work Phone: Start: 05-03-2025 Plain x-ray of hand Dr. Riaz Garrison MD Work Phone: Start: 05-03-2025 Plain x-ray of wrist Dr Catherine Garrison MD Work Phone: Start: 04-05-2025 Mean corpuscular hemoglobin concentration determination Dr. Riaz Garrison MD Work Phone: Start: 04-05-2025 Platelet mean volume determination Dr. Riaz Garrison MD Work Phone: Start: 03-09-2025 Blood count smear mcrscp w/mnl difrntl wbc count Dr. Riaz Garrison MD Work Phone: Start: 03-09-[address] Riaz Garrison MD Work Phone: Start: 03-09-2025 Mean corpuscular hemoglobin concentration determination Dr. Riaz Garrison MD Work Phone: Start: 03-09-2025 Nucleated red blood cell count procedure Dr. Riaz Garrison MD Work Phone: Start: 03-09-2025 Platelet mean volume determination Dr. Riaz Garrison MD Work Phone: Start: 03-06-2025 Serum inorganic phosphate measurement Dr. Riaz Garrison MD Work Phone: Start: 03-05-2025 CT of chest without contrast Dr. Riaz Garrison MD Work Phone: Start: 03-05-2025 Dr. Riaz Garrison MD Work Phone: Start: 03-05-2025 Calculation of international normalized ratio Dr. Riaz Garrison MD Work Phone: Start: 03-04-2025 Urine microscopy: re d cells Dr. Riaz Garrison MD Work Phone: Start: 03-04-2025 Urnls dip stick/tabl et reagent auto microscopy Dr. Riaz Garrison MD Work Phone: Start: 03-04-[address] Tess Garrison MD Work Phone: Start: 03-04-2025 Gram stain microscopy D ezra Garrison MD Work Phone: Start: 03-04-2025 Res[address] microbia l culture Dr. Riaz Garrison MD Work Phone: Start: 03-04-2025 Blood count smear mcrscp w/mnl difrntl wbc count Dr. Riaz Garrison MD Work Phone: Start: 03-04-2025 Mean corpuscular hemoglobin concentration determination Dr. Riaz Garrison MD Work Phone: Start: 03-04-2025 Nucleated red blood cell count procedure Dr. Riaz Garrison MD Work Phone: Start: 03-04-2025 Platelet mean volume determination Dr. Riaz Garrison MD Work Phone: Start: 03-04-2025 X-ray of chest, PA a nd lateral views Dr. Riaz Garrison MD Work Phone: Start: 03-03-2025 Blood count smear mcrscp w/mnl difrntl wbc count Dr. Riaz Garrison MD Work Phone: Start: 03-03-2025 Mean corpuscular hemoglobin concentration determination Dr. Riaz Garrison MD Work Phone: Start: 03-03-2025 Nucleated red blood cell count procedure Dr. Riaz Garrison MD Work Phone: Start: 03-03-2025 Platelet mean volume determination Dr. Riaz Garrison MD Work Phone: Start: 03-03-2025 Total iron binding capacity measurement Dr. Riaz Garrison MD Work Phone: Start: 02-22-[address] Riaz Garrison MD Work Phone: Start: 02-20-2025 Blood count smear mcrscp w/mnl difrntl wbc count Dr. Riaz Garrison MD Work Phone: Start: 02-20-2025 Calculation of international normalized ratio Dr. Riaz Garrison MD Work Phone: Start: 02-20-2025 Mean corpuscular hemoglobin concentration determination Dr. Riaz Garrison MD Work Phone: Start: 02-20-2025 Nucleated red blood cell count procedure Dr. Riaz Garrison MD Work Phone: Start: 02-20-2025 Platelet mean volume determination Dr. Riaz Garrison MD Work Phone: Start: 02-20-2025 Serum inorganic phosphate measurement Dr. Riaz Garrison MD Work Phone: Start: 02-19-2025 Venous oxygen saturation measurement Dr. Riaz Garrison MD Work Phone: Start: 02-19-2025 Plain chest X-ray Dr. Carlos Garrison MD Work Phone: Start: 02-19-2025 Blood count smear mcrscp w/mnl difrntl wbc count Dr. Riaz Garrison MD Work Phone: Start: 02-19-[address] Riaz Garrison MD Work Phone: Start: 02-19-2025 Mean corpuscular hemoglobin concentration determination Dr. Riaz Garrison MD Work Phone: Start: 02-19-2025 Nucleated red blood cell count procedure Dr. Riaz Garrison MD Work Phone: Start: 02-19-2025 Platelet mean volume determination Dr. Riaz Garrison MD Work Phone: Start: 02-19-2025 Gram stain microscopy D ezra Garrison MD Work Phone: Start: 02-19-[address] Riaz Garrison MD Work Phone: Start: 02-19-2025 Respiratory microbia l culture Dr. Riaz Garrison MD Work Phone: Start: 02-19-2025 Sars-cov-2 Dr. Riaz Garrison MD Work Phone: Start: 02-18-2025 Blood count smear mcrscp w/mnl difrntl wbc count Dr. Riaz Garrison MD Work Phone: Start: 02-18-[address] Riaz Garrison MD Work Phone: Start: 02-18-2025 Mean corpuscular hemoglobin concentration determination Dr. Riaz Garrison MD Work Phone: Start: 02-18-2025 Nucleated red blood cell count procedure Dr. Riaz Garrison MD Work Phone: Start: 02-18-2025 Platelet mean volume determination Dr. Riaz Garrison MD Work Phone: Start: 02-15-2025 MRI of brain with contrast Dr. Riaz Garrison MD Work Phone: Start: 02-15-[address] Riaz Garrison MD Work Phone: Start: 02-15-2025 Dr. Riaz Garrison MD Work Phone: Start: 02-15-[address] Riaz Garrison MD Work Phone: Start: 02-15-2025 Serum inorganic phosphate measurement Dr. Riaz Garrison MD Work Phone: Start: 02-15-2025 Total cholesterol:HD L ratio measurement Dr. Riaz Garrison MD Work Phone: Start: 02-15-2025 CT of head without contrast Dr. Riaz Garrison MD Work Phone: Start: 02-15-2025 Total iron binding capacity measurement Dr. Riaz Garrison MD Work Phone: Start: 02-15-2025 X-ray of chest, PA a nd lateral views Dr. Riaz Garrison MD Work Phone: Start: 02-15-2025 Blood count smear mcrscp w/mnl difrntl wbc count Dr. Riaz Garrison MD Work Phone: Start: 02-15-[address] Riaz Garrison MD Work Phone: Start: 02-15-2025 Mean corpuscular hemoglobin concentration determination Dr. Riaz Garrison MD Work Phone: Start: 02-15-2025 Nucleated red blood cell count procedure Dr. Riaz Garrison MD Work Phone: Start: 02-15-2025 Platelet mean volume determination Dr. Riaz Garrison MD Work Phone: Start: 02-05-2025 Measurement of occul t blood in stool specimen using immunoassay Dr. Riaz Garrison MD Work Phone: Start: 02-04-2025 Measurement of occul t blood in stool specimen using immunoassay Dr. Riaz Garrison MD Work Phone: Start: 02-01-2025 Blood count smear mcrscp w/mnl difrntl wbc count Dr. Riaz Garrison MD Work Phone: Start: 02-01-2025 Mean corpuscular hemoglobin concentration determination Dr. Riaz Garrison MD Work Phone: Start: 02-01-2025 Nucleated red blood cell count procedure Dr. Riaz Garrison MD Work Phone: Start: 02-01-2025 Platelet mean volume determination Dr. Riaz Garrison MD Work Phone: Start: 02-01-2025 Total iron binding capacity measurement Dr. Riaz Garrison MD Work Phone: Start: 01-29-2025 X-ray of chest, PA a nd lateral views Dr. Riaz Garrison MD Work Phone: Start: 01-29-2025 Blood count smear mcrscp w/mnl difrntl wbc count Dr. Riaz Garrison MD Work Phone: Start: 01-29-[address] Riaz Garrison MD Work Phone: Start: 01-29-2025 Mean corpuscular hemoglobin concentration determination Dr. Riaz Garrison MD Work Phone: Start: 01-29-2025 Nucleated red blood cell count procedure Dr. Riaz Garrison MD Work Phone: Start: 01-29-2025 Platelet mean volume determination Dr. Riaz Garrison MD Work Phone: Start: 12-17-[address] Riaz Garrison MD Work Phone: Start: 12-14-2024 Dr. Riaz Garrison MD Work Phone: Start: 12-14-2024 X-ray of chest, PA a nd lateral views Dr. Riaz Garrison MD Work Phone: Start: 12-14-[address] Riaz Garirson MD Work Phone: Start: 12-14-2024 Venous oxygen saturation measurement Dr. Riaz Garrison MD Work Phone: Start: 12-14-2024 Blood count smear mcrscp w/mnl difrntl wbc count Dr. Riaz Garrison MD Work Phone: Start: 12-14-2024 Mean corpuscular hemoglobin concentration determination Dr. Riaz Garrison MD Work Phone: Start: 12-14-2024 Nucleated red blood cell count procedure Dr. Riaz Garrison MD Work Phone: Start: 12-14-2024 Platelet mean volume determination Dr. Riaz Garrison MD Work Phone: Start: 11-24-2024 Anion gap measurement Meme Garrison MD Work Phone: Start: 11-24-2024 BUN/Creatinine ratio Dr Catherine Garrison MD Work Phone: Start: 11-24-2024 Measurement of renal function Dr. Riaz Garrison MD Work Phone: Start: 08-31-2024 US scan of thyroid Dr. Riaz Garrison MD Work Phone: Start: 02-11-2024 Plain chest X-ray Dr. Carlos Garrison Work Phone: Start: 01-26-2024 Plain chest X-ray Dr. Carlos Garrison Work Phone: Start: 01-02-2024 Diagnostic radiograp hy of abdomen Dr. Rosa Collins Work Phone: Start: 12-25-2023 Plain chest X-ray Dr. Alea Collins Work Phone: Start: 12-21-2023 Measurement of occul t blood in stool specimen using immunoassay Dr. Rosa Collins Work Phone: Start: 12-02-2023 Plain chest X-ray Dr. Alea Collins Work Phone: Start: 11-05-2023 Antibody screen JOSEMANUEL KIM Comment on above: Order Comment: Speci men Type: BLOOD SPECIMEN Ordering Facility: [facility] Address: [address] [place] [address] Performed By: #### T [id number] #### [facility] [id number] [address] [place] Start: 10-15-2023 Plain chest X-ray Dr. Carlos Garrison Work Phone: Start: 10-15-[address] Tess Garrison Work Phone: Start: 10-01-2023 US scan of thyroid Dr. Riaz Garrison Work Phone: Start: 09-12-2023 MRI of brain without contrast Dr. Riaz Garrison Work Phone: Start: 09-12-2023 Plain chest X-ray Dr. Carlos Garrison Work Phone: Start: 09-12-2023 CT angiography of he ad and neck Dr. Riaz Garrison Work Phone: Start: 09-12-2023 CT of head without contrast Dr. Riaz Garrison Work Phone: Start: 08-27-2023 MRI of abdomen with contrast Dr. Riaz Garrison Work Phone: Start: 08-02-[address] Dahl Work Phone: Start: 12-10-2022 MRI of lumbar spine Dr. Riaz Garrison Work Phone: Start: 11-15-2022 X-ray of lumbar spin e, two or three views Dr. Riaz Garrison Work Phone: Start: 06-09-2022 CT angiography of ch est with contrast Dr. Emeka Horn Work Phone: Start: 06-08-2022 Plain chest X-ray Dr. Julita Horn Work Phone: Start: 06-06-2022 Computed tomography of abdomen and pelvis with contrast Dr. Emeka Horn Work Phone: Start: 06-05-[address] Emeka Horn Work Phone: Start: 06-02-2022 Plain chest X-ray Dr. Julita Horn Work Phone: Start: 05-28-2022 Plain chest X-ray Dr. Julita Horn Work Phone: Start: 05-22-2022 Plain chest X-ray Dr. Julita Horn Work Phone: Start: 05-15-2022 Plain chest X-ray Dr. Julita Horn Work Phone: Start: 05-02-2022 Radiologic exam abdo men 1 view Colton Mendez MD Work Phone: Start: 04-26-2022 Radiologic exam abdo men 1 view Colton Mendez MD Work Phone: Start: 04-22-2022 CT of abdomen and pelvis without contrast Dr. Emeka Horn Work Phone: Start: 04-22-2022 Echography of scrotu m and contents Dr. Emeka Horn Work Phone: Start: 03-29-2022 Plain X-ray abdomen Dr. Emeka Horn Work Phone: Start: 03-28-2022 History of transurethral prostatectomy S/P TURP (status post transurethral resection of prostate) Emeka Horn MD Work Phone: Start: 02-13-2022 CT of abdomen and pelvis without contrast Dr. Emeka Horn Work Phone: Start: 02-06-[address] Chelsea Horn Work Phone: Start: 01-17-[address] Chelsea Horn Work Phone: Start: 01-04-[address] Chelsea Horn Work Phone: Start: 12-04-2021 Nuclear Stress Test - Chemical Dr. Emeka Horn Work Phone: Start: 11-01-2021 Plain chest X-ray Dr. uJlita Horn Work Phone: Start: 10-31-2021 SARS-CoV-2 Antigen (Rapid) Dr. Emeka Horn Work Phone: Start: 02-17-2008 History of placement of stent for coronary artery disease History of coronary artery stent placement Dr. Emeka Horn Work Phone: History of placement of stent for coronary artery disease Dr. Riaz Garrison MD Work Phone: History of transurethral prostatectomy History of transurethral resection of prostate Dr. Emeka Horn Work Phone: History of transurethral prostatectomy S/P TURP (status post transurethral resection of prostate) Dominique Reese LSAT INSTRUCTOR.DIRECTOR OF STRATEGY & MOBILE Work Phone: History of transurethral prostatectomy S/P TURP (status post transurethral resection of prostate) Emeka Horn MD Work Phone: Investigation of transfusion reaction Dr. Emeka Horn Work Phone: Legionella pneumophi la antigen assay Dr. Emeka Horn Work Phone: Measurement of occul t blood in stool specimen using immunoassay Dr. Emeka Horn Work Phone: Respiratory microbia l culture Dr. Emeka Horn Work Phone: Streptococcus pneumoniae Antigen (M Dr. Emeka Horn Work Phone: Urine culture Dr. Emeka Santillan Work Phone: Viral antigen assay Dr. Chacho Horn Work Phone: Plan of Treatment Date Care Activity Detail Author Start: 05-04-2026 Diabetic foot examination Diabetic Foot Exam [facility] Start: 07-08-2025 End: 07-08-2025 Patient encounter procedure 07/08/2025 1:30 PM EDT Office Visit Podiatry [address] [place], [place] [address] Vipul Richard [address] [place], [place] [id number] 9 week follow up nail care Podiatry Comment on above: 9 week follow up nail care Start: 07-06-2025 End: 07-06-2025 Patient encounter procedure 07/06/2025 10:45 AM EDT Office Visit Vascular Surgery [address] [place], [place] [address] Darryl Mallory, DO [address] [place] [address] 3 month follow up Vascular Surgery Comment on above: 3 month follow up Start: 06-07-2025 Influenza vaccination Influenza Vaccine (#1) [facility] Start: 05-04-2025 End: 05-04-2025 Patient encounter procedure 05/04/2025 1:45 PM EDT Office Visit Podiatry [address] [place], [place] [id number] Vipul Richard [address] [facility] [address] [place], [place] [id number] 9 weeks follow up nail care Podiatry Comment on above: 9 weeks follow up nail care Start: 03-30-2025 Diabetic foot examination Diabetic Foot Exam [facility] Start: 03-23-2025 End: 03-23-2025 Patient encounter procedure 03/23/2025 10:30 AM EDT Office Visit Vascular Surgery [address] [place] [address] Darryl Mallory, DO [address] [place] [address] follow up after testing Vascular Surgery Comment on above: follow up after testing Start: 03-15-2025 Patient referral [facility] Work Phone: Start: 03-09-2025 Patient discharge [facility] Start: 03-07-2025 Consultation [facility] Start: 03-06-2025 Referral to applique sewer [facility] Start: 03-05-2025 [facility] Start: 03-05-2025 Hepatic function panel [facility] Start: 03-05-2025 Prothrombin time [facility] Start: 03-05-2025 Serum inorganic phosphate measurement [facility] Start: 03-05-2025 Thyroid stimulating hormone measurement [facility] Start: 03-04-2025 Following clinical pathway protocol [facility] Start: 03-04-2025 Bacteria identified in Sputum by Culture [facility] Start: 03-04-2025 Consultation [facility] Start: 03-04-2025 Elevation of head of bed [facility] Start: 03-04-2025 Patient education [facility] Start: 03-04-2025 End: 03-04-2025 [facility] Start: 03-04-2025 Documentation procedure [facility] Start: 03-04-2025 Oxygen therapy [facility] Start: 03-04-2025 Admission procedure [facility] Start: 03-04-2025 Assessment of risk of venous thromboembolism [facility] Start: 03-04-2025 Insertion of catheter into peripheral vein [facility] Start: 03-04-2025 Providing care according to standard [facility] Start: 03-04-2025 Referral to occupational therapist [facility] Start: 03-04-2025 Referral to service [facility] Start: 03-04-2025 Respiratory therapy [facility] Start: 03-04-2025 Verification routine [facility] Start: 03-04-2025 Hospital admission, emergency, from emergency room, medical nature [facility] Start: 03-04-2025 End: 03-04-2025 [facility] Start: 03-04-2025 [facility] Start: 03-04-2025 Inhalation therapy procedure [facility] Start: 02-25-2025 End: 02-25-2025 Patient encounter procedure 02/25/2025 1:15 PM EDT Office Visit Podiatry [address] [place] [address] Vipul Richard [address] [address] 9 week follow up nail care Podiatry Comment on above: 9 week follow up nail care Start: 02-22-2025 Patient discharge [facility] Start: 02-20-2025 [facility] Start: 02-20-2025 [facility] Start: 02-20-2025 Hepatic function panel [facility] Start: 02-20-2025 Prothrombin time [facility] Start: 02-20-2025 Serum inorganic phosphate measurement [facility] Start: 02-20-2025 Thyroid stimulating hormone measurement [facility] Start: 02-20-2025 Contact precautions [facility] Start: 02-20-2025 Respiratory secretion precautions [facility] Start: 02-19-2025 Care planning and problem solving actions [facility] Start: 02-19-2025 Following clinical pathway protocol [facility] Start: 02-19-2025 End: 02-19-2025 [facility] Start: 02-19-2025 Care regimes management [facility] Start: 02-19-2025 Notification of physician [facility] Start: 02-19-2025 Documentation procedure [facility] Start: 02-19-2025 Oxygen therapy [facility] Start: 02-19-2025 Admission procedure [facility] Start: 02-19-2025 Assessment of risk of venous thromboembolism [facility] Start: 02-19-2025 Insertion of catheter into peripheral vein [facility] Start: 02-19-2025 Providing care according to standard [facility] Start: 02-19-2025 End: 02-19-2025 Referral to service [facility] Start: 02-19-2025 Ambulation without limitation [facility] Start: 02-19-2025 Referral to occupational therapist [facility] Start: 02-19-2025 Verification routine [facility] Start: 02-19-2025 Hospital admission, emergency, from emergency room, medical nature [facility] Start: 02-19-2025 End: 02-19-2025 [facility] Start: 02-19-2025 Consultation [facility] Start: 02-19-2025 Inhalation therapy procedure [facility] Start: 02-18-2025 Patient discharge [facility] Start: 02-16-2025 [facility] Start: 02-15-2025 Assessment of risk of venous thromboembolism [facility] Start: 02-15-2025 Care regimes management [facility] Start: 02-15-2025 Catheterization of vein [facility] Start: 02-15-2025 Insertion of catheter into peripheral vein [facility] Start: 02-15-2025 Measuring intake and output [facility] Start: 02-15-2025 Notification of physician [facility] Start: 02-15-2025 Providing care according to standard [facility] Start: 02-15-2025 Provision of activity privileges [facility] Start: 02-15-2025 Referral to occupational therapist [facility] Start: 02-15-2025 Referral to service [facility] Start: 02-15-2025 Following clinical pathway protocol [facility] Start: 02-15-2025 Dual pressure spontaneous ventilation support [facility] Start: 02-15-2025 Verification routine [facility] Start: 02-15-2025 Admission procedure [facility] Start: 02-15-2025 Thyroid stimulating hormone measurement [facility] Start: 02-15-2025 End: 02-15-2025 [facility] Start: 02-15-2025 End: 02-15-2025 Hospital admission, emergency, from emergency room, medical nature [facility] Start: 02-15-2025 [facility] Start: 02-15-2025 Inhalation therapy procedure [facility] Start: 02-15-2025 [facility] Start: 02-09-2025 End: 02-09-2025 Patient encounter procedure 02/09/2025 10:20 AM EDT Office Visit Vascular Surgery [address] [place] [address] Darryl Mallory DO [address] [place] [address] follow up after testing Vascular Surgery Comment on above: follow up after testing Start: 02-01-2025 Patient referral [facility] Work Phone: Start: 01-29-2025 [facility] Start: 01-29-2025 [facility] Start: 01-26-2025 End: 01-26-2025 Patient encounter procedure [facility] r[facility] Comment on above: Peripheral arterial disease (HCC) [I73.9 ] follow up after test ing Start: 12-22-2024 End: 12-22-2024 Patient encounter procedure 12/22/2024 2:00 PM EDT Office Visit Podiatry [address] [place] [address] Vipul Richard [address] [address] 9 week follow up nail care Podiatry Comment on above: 9 week follow up nail care Start: 12-17-2024 Patient discharge [facility] Start: 12-16-2024 Referral to occupational therapist [facility] Start: 12-16-2024 Referral to service [facility] Start: 12-15-2024 End: 12-16-2024 [facility] Start: 12-14-2024 End: 12-14-2024 [facility] Start: 12-14-2024 Care regimes management [facility] Start: 12-14-2024 Notification of physician [facility] Start: 12-14-2024 Oxygen therapy [facility] Start: 12-14-2024 Following clinical pathway protocol [facility] Start: 12-14-2024 Ambulation without limitation [facility] Start: 12-14-2024 Assessment of risk of venous thromboembolism [facility] Start: 12-14-2024 Catheterization of vein [facility] Start: 12-14-2024 Inhalation therapy procedure [facility] Start: 12-14-2024 Insertion of catheter into peripheral vein [facility] Start: 12-14-2024 Providing care according to standard [facility] Start: 12-14-2024 Respiratory secretion precautions [facility] Start: 12-14-2024 [facility] Start: 12-14-2024 Verification routine [facility] Start: 12-14-2024 Admission procedure [facility] Start: 12-14-2024 [facility] Start: 12-14-2024 Patient referral to dietitian [facility] Start: 12-14-2024 [facility] Start: 11-12-2024 Hepatitis B surface antibody level LDL Cholesterol [facility] Start: 10-16-2024 End: 10-16-2024 Patient encounter procedure 10/16/2024 1:40 PM EST Office Visit Podiatry [address] [place] [address] Vipul Richard [address] [place] [address] 9 week follow up nail care Podiatry Comment on above: 9 week follow up nail care Start: 10-07-2024 Advance Directive Discussion Advance Directive Discussion [facility] Start: 10-07-2024 Medicare Advantage Annual Wellness Visit Medicare Advantage Annual Wellness Visit [facility] Start: 08-14-2024 End: 08-14-2024 Patient encounter procedure 08/14/2024 11:30 AM EST Office Visit Podiatry [address] [place] [address] Vipul Richard [address] [place] [address] 9 week follow up nail care Podiatry Comment on above: 9 week follow up nail care Start: 06-30-2024 End: 06-30-2024 Patient encounter procedure Vasculary Dee rgery Comment on above: PVR Start: 06-13-2024 End: 03-07-2025 US Lower extremity artery - bilateral PVR [facility] Vascular Lab Routine Peripheral arterial disease (HCC) Expected: 06/13/2024, Expires: 12/11/2024 [facility] Work Phone: Comment on above: Expected: 06/13/2024, Expires: Start: 06-11-2024 End: 06-11-2024 Patient encounter procedure 06/11/2024 1:00 PM EDT Office Visit Podiatry [address] [place], [place] [phone] Vipul Richard [address] [place], [place] [phone] 2 month follow up nail care Podiatry Comment on above: 2 month follow up nail care Start: 06-07-2024 Covid-19 Vaccine ( season) Covid-19 Vaccine () [facility] Start: 06-07-2024 Covid-19 Vaccine ( season) Covid-19 Vaccine ( season) [facility] Start: 06-07-2024 Influenza vaccination Influenza Vaccine (#1) [facility] Start: 06-04-2024 End: 06-04-2024 Patient encounter procedure Vascular Ryan isidoro Comment on above: PVR Start: 05-12-2024 [facility] Start: 03-30-2024 End: 03-30-2024 Patient encounter procedure 03/30/2024 1:30 PM EDT Office Visit Podiatry [address] [place], [place] [phone] Vipul Richard [address] [place], [place] [phone] 3 month follow up nail care Podiatry Comment on above: 3 month follow up nail care Start: 03-05-2024 End: 03-05-2024 Patient encounter procedure 03/05/2024 10:30 AM EDT Appointment ASHELY BENNETT [address] [place] [address] Josemanuel Kim MD [address] [address] DREALena BENNETT Start: 02-13-2024 Administration of blood product [facility] Start: 02-13-2024 [facility] Start: 02-11-2024 [facility] Start: 01-29-2024 Patient discharge [facility] Start: 01-28-2024 Referral to lasting room machine operator [facility] Start: 01-27-2024 Inhalation therapy procedure [facility] Start: 01-26-2024 Following clinical pathway protocol [facility] Start: 01-26-2024 Ambulation without limitation [facility] Start: 01-26-2024 Application of elastic bandage [facility] Start: 01-26-2024 Assessment of risk of venous thromboembolism [facility] Start: 01-26-2024 Care regimes management [facility] Start: 01-26-2024 Elevation of affected extremity [facility] Start: 01-26-2024 Insertion of catheter into peripheral vein [facility] Start: 01-26-2024 Measuring intake and output [facility] Start: 01-26-2024 Notification of physician [facility] Start: 01-26-2024 Oxygen therapy [facility] Start: 01-26-2024 Patient education [facility] Start: 01-26-2024 Providing care according to standard [facility] Start: 01-26-2024 Referral to occupational therapist [facility] Start: 01-26-2024 Referral to service [facility] Start: 01-26-2024 [facility] Start: 01-26-2024 Verification routine [facility] Start: 01-26-2024 Admission procedure [facility] Start: 01-26-2024 Hospital admission, emergency, from emergency room, medical nature [facility] Start: 01-26-2024 [facility] Start: 01-21-2024 Patient referral [facility] Work Phone: Start: 01-20-2024 Patient referral [facility] Work Phone: Start: 12-25-2023 [facility] Start: 12-02-2023 [facility] Start: 12-02-2023 [facility] Start: 10-07-2023 Advance Directive Discussion Advance Directive Discussion [facility] Start: 10-07-2023 Behavioral Health Screening Behavioral Health Screening [facility] Start: 10-07-2023 Depression Assessment Depression Assessment [facility] Start: 09-12-2023 Patient discharge [facility] Start: 09-12-2023 Following clinical pathway protocol [facility] Start: 09-12-2023 Ambulation without limitation [facility] Start: 09-12-2023 Assessment of risk of venous thromboembolism [facility] Start: 09-12-2023 Catheterization of vein [facility] Start: 09-12-2023 Insertion of catheter into peripheral vein [facility] Start: 09-12-2023 Measuring intake and output [facility] Start: 09-12-2023 Providing care according to standard [facility] Start: 09-12-2023 [facility] Start: 09-12-2023 Admission procedure [facility] Start: 09-12-2023 End: 09-12-2023 Referral to occupational therapist [facility] Start: 09-12-2023 End: 09-12-2023 Referral to service [facility] Start: 09-12-2023 Hospital admission, emergency, from emergency room, medical nature [facility] Start: 09-12-2023 Oxygen therapy [facility] Start: 09-12-2023 End: 09-12-2023 [facility] Start: 06-07-2023 Covid-19 Vaccine ( season) Covid-19 Vaccine ( season) [facility] Start: 06-07-2023 Influenza vaccination INFLUENZA (#1) [facility] Start: 01-24-2023 Hepatitis B screening URINE ALBUMIN:CREATININE RATIO [facility] Start: 12-29-2022 Glaucoma screening Dilated Retinal Exam [facility] Start: 12-29-2022 Hepatitis C antibody, confirmatory test DILATED RETINAL EXAM [facility] Start: 10-07-2022 ADVANCE DIRECTIVE DISCUSSION ADVANCE DIRECTIVE DISCUSSION [facility] Start: 10-07-2022 DEPRESSION ASSESSMENT DEPRESSION ASSESSMENT [facility] Start: 08-16-2022 Urine microalbumin profile DTAP,TDAP,TD (1 - Tdap) [facility] Comment on above: Postponed from 06/13/2007 (Declined at t his time) Start: 08-10-2022 End: 10-10-2022 Hemoglobin A1c/Hemoglobin.total in Blood HGB A1C Lab Routine Well controlled type 2 diabetes mellitus with neurological manifestations (HCC) Expected: 08/10/2022 (Approximate), Expires: 10/10/2022 [facility] Work Phone: Comment on above: Expected: 08/10/2022 (Approximate), Expi res: 10/10/2022 Start: 07-26-2022 Hemoglobin A1c/Hemoglobin.total in Blood HBA1C [facility] Start: 07-07-2022 3 comp foot exam completed DIABETIC FOOT EXAM [facility] Start: 07-07-2022 Diabetic foot examination Diabetic Foot Exam [facility] Start: 07-06-2022 Hepatitis B screening URINE ALBUMIN:CREATININE RATIO [facility] Start: 06-28-2022 End: 08-28-2022 Basic metabolic 2000 panel - Serum or Plasma BASIC METABOLIC PNL Lab Routine Well controlled type 2 diabetes mellitus with neurological manifestations (HCC) Expected: 06/28/2022, Expires: 08/28/2022 [facility] Work Phone: Comment on above: Expected: 06/28/2022, Expires: 2 Start: 06-28-2022 End: 08-28-2022 Hemoglobin A1c in Blood HGB A1C Lab Routine Well controlled type 2 diabetes mellitus with neurological manifestations (HCC) Expected: 06/28/2022, Expires: 08/28/2022 [facility] Work Phone: Comment on above: Expected: 06/28/2022, Expires: 2 Start: 06-28-2022 End: 08-28-2022 Lipid 1996 panel - Serum or Plasma LIPID PANEL BASIC Lab Routine Well controlled type 2 diabetes mellitus with neurological manifestations (HCC) Expected: 06/28/2022, Expires: 08/28/2022 [facility] Work Phone: Comment on above: Expected: 06/28/2022, Expires: 2 Start: 06-14-2022 Patient discharge [facility] Work Phone: Start: 06-12-2022 Referral to occupational therapist [facility] Work Phone: Start: 06-12-2022 Referral to service [facility] Work Phone: Start: 06-09-2022 Consultation [facility] Work Phone: Start: 06-09-2022 Blood chemistry [facility] Work Phone: Start: 06-09-2022 Care regimes management [facility] Work Phone: Start: 06-09-2022 Notification of physician [facility] Work Phone: Start: 06-09-2022 Following clinical pathway protocol [facility] Work Phone: Start: 06-09-2022 Assessment of risk of venous thromboembolism [facility] Work Phone: Start: 06-09-2022 Care planning and problem solving actions [facility] Work Phone: Start: 06-09-2022 Continuous pulse oximetry [facility] Work Phone: Start: 06-09-2022 Incentive spirometry [facility] Work Phone: Start: 06-09-2022 Inhalation therapy procedure [facility] Work Phone: Start: 06-09-2022 Insertion of catheter into peripheral vein [facility] Work Phone: Start: 06-09-2022 Oxygen therapy [facility] Work Phone: Start: 06-09-2022 Providing care according to standard [facility] Work Phone: Start: 06-09-2022 Provision of activity privileges [facility] Work Phone: Start: 06-09-2022 End: 06-09-2022 [facility] Work Phone: Start: 06-09-2022 Verification routine [facility] Work Phone: Start: 06-09-2022 Dual pressure spontaneous ventilation support [facility] Work Phone: Start: 06-09-2022 Admission procedure [facility] Work Phone: Start: 06-07-2022 Influenza vaccination INFLUENZA (#1) [facility] Start: 06-06-2022 Patient discharge [facility] Work Phone: Start: 06-05-2022 Referral to general surgeon [facility] Work Phone: Start: 06-04-2022 Referral to occupational therapist [facility] Work Phone: Start: 06-04-2022 End: 06-04-2022 Referral to service [facility] Work Phone: Start: 06-04-2022 Notification of physician [facility] Work Phone: Start: 06-04-2022 End: 06-04-2022 Catheterization of vein [facility] Work Phone: Start: 06-04-2022 Referral to gastroenterology service [facility] Work Phone: Start: 06-03-2022 Dual pressure spontaneous ventilation support [facility] Work Phone: Start: 06-03-2022 Admission procedure [facility] Work Phone: Start: 06-03-2022 [facility] Work Phone: Start: 06-03-2022 Troponin I measurement [facility] Work Phone: Start: 06-03-2022 [facility] Work Phone: Start: 06-03-2022 Following clinical pathway protocol [facility] Work Phone: Start: 06-03-2022 Speech therapy assessment [facility] Work Phone: Start: 06-03-2022 Assessment of risk of venous thromboembolism [facility] Work Phone: Start: 06-03-2022 Bacteria identified in Sputum by Culture [facility] Work Phone: Start: 06-03-2022 Care regimes management [facility] Work Phone: Start: 06-03-2022 Continuous pulse oximetry [facility] Work Phone: Start: 06-03-2022 Elevation of head of bed [facility] Work Phone: Start: 06-03-2022 Incentive spirometry [facility] Work Phone: Start: 06-03-2022 Inhalation therapy procedure [facility] Work Phone: Start: 06-03-2022 Insertion of catheter into peripheral vein [facility] Work Phone: Start: 06-03-2022 Introduction of urinary catheter [facility] Work Phone: Start: 06-03-2022 Measuring intake and output [facility] Work Phone: Start: 06-03-2022 Oxygen therapy [facility] Work Phone: Start: 06-03-2022 Patient education [facility] Work Phone: Start: 06-03-2022 Providing care according to standard [facility] Work Phone: Start: 06-03-2022 Provision of activity privileges [facility] Work Phone: Start: 06-03-2022 Referral to applique sewer [facility] Work Phone: Start: 06-03-2022 Referral to service [facility] Work Phone: Start: 06-03-2022 Taking nasal swab [facility] Work Phone: Start: 06-03-2022 Tobacco use cessation education [facility] Work Phone: Start: 06-03-2022 End: 06-03-2022 [facility] Work Phone: Start: 06-03-2022 Verification routine [facility] Work Phone: Start: 06-03-2022 Viral nucleic acid assay [facility] Work Phone: Start: 06-03-2022 End: 06-03-2022 Electrocardiographic procedure [facility] Work Phone: Start: 06-03-2022 Streptococcus pneumoniae antigen assay [facility] Work Phone: Start: 06-03-2022 Admission procedure [facility] Work Phone: Start: 05-28-2022 [facility] Work Phone: Start: 05-16-2022 Patient discharge [facility] Work Phone: Start: 05-15-2022 Application of intermittent pneumatic compression device [facility] Work Phone: Start: 05-15-2022 Following clinical pathway protocol [facility] Work Phone: Start: 05-15-2022 Application of elastic bandage [facility] Work Phone: Start: 05-15-2022 Assessment of risk of venous thromboembolism [facility] Work Phone: Start: 05-15-2022 Care regimes management [facility] Work Phone: Start: 05-15-2022 Catheterization of vein [facility] Work Phone: Start: 05-15-2022 Elevation of affected extremity [facility] Work Phone: Start: 05-15-2022 Incentive spirometry [facility] Work Phone: Start: 05-15-2022 Insertion of catheter into peripheral vein [facility] Work Phone: Start: 05-15-2022 Measuring intake and output [facility] Work Phone: Start: 05-15-2022 Notification of physician [facility] Work Phone: Start: 05-15-2022 Oxygen therapy [facility] Work Phone: Start: 05-15-2022 Patient education [facility] Work Phone: Start: 05-15-2022 Providing care according to standard [facility] Work Phone: Start: 05-15-2022 Provision of activity privileges [facility] Work Phone: Start: 05-15-2022 Referral to service [facility] Work Phone: Start: 05-15-2022 [facility] Work Phone: Start: 05-15-2022 Verification routine [facility] Work Phone: Start: 05-15-2022 Admission procedure [facility] Work Phone: Start: 05-15-2022 Inhalation therapy procedure [facility] Work Phone: Start: 05-08-2022 COVID-19 VACCINE (5 - Booster for Pfizer series) COVID-19 VACCINE (5 - Booster for Pfizer series) [facility] Start: 05-08-2022 COVID-19 VACCINE (5 - Pfizer series) COVID-19 VACCINE (5 - Pfizer series) [facility] Start: 03-27-2022 Hepatitis B surface antibody level LDL CHOLESTEROL [facility] Start: 03-22-2022 [facility] Work Phone: Start: 03-22-2022 Patient discharge [facility] Work Phone: Start: 03-21-2022 Development of care plan [facility] Work Phone: Start: 03-21-2022 Developing a treatment plan [facility] Work Phone: Start: 03-19-2022 [facility] Work Phone: Start: 03-18-2022 End: 03-18-2022 [facility] Work Phone: Start: 03-17-2022 [facility] Work Phone: Start: 03-14-2022 [facility] Work Phone: Start: 03-13-2022 [facility] Work Phone: Start: 03-11-2022 Patient referral to dietitian [facility] Work Phone: Start: 03-10-2022 Development of care plan [facility] Work Phone: Start: 03-10-2022 Developing a treatment plan [facility] Work Phone: Start: 03-09-2022 Admission procedure [facility] Work Phone: Start: 03-09-2022 Measuring intake and output [facility] Work Phone: Start: 03-09-2022 Referral to occupational therapist [facility] Work Phone: Start: 03-09-2022 Referral to service [facility] Work Phone: Start: 03-09-2022 Vital signs measurements [facility] Work Phone: Start: 03-09-2022 [facility] Work Phone: Start: 03-09-2022 Referral to occupational therapist [facility] Work Phone: Start: 03-09-2022 Referral to service [facility] Work Phone: Start: 03-09-2022 Patient discharge [facility] Work Phone: Start: 03-09-2022 Patient discharge [facility] Work Phone: Start: 03-08-2022 Referral to occupational therapist [facility] Work Phone: Start: 03-08-2022 Referral to service [facility] Work Phone: Start: 03-08-2022 Removal of urinary catheter [facility] Work Phone: Start: 03-08-2022 Removal of urinary catheter [facility] Work Phone: Start: 03-07-2022 Oxygen therapy [facility] Work Phone: Start: 03-07-2022 Following clinical pathway protocol [facility] Work Phone: Start: 03-07-2022 Admission procedure [facility] Work Phone: Start: 03-07-2022 Irrigation of urinary bladder [facility] Work Phone: Start: 03-07-2022 Anesthesia transurethral resection of prostate [facility] Work Phone: Start: 03-07-2022 Trurl electrosurg rescj prostate bleed complete [facility] Work Phone: Start: 03-07-2022 Inhalation therapy procedure [facility] Work Phone: Start: 02-19-2022 Urine culture Urine Culture [facility] Work Phone: Start: 01-17-2022 Patient referral [facility] Work Phone: Start: 01-03-2022 Hemoglobin A1c/Hemoglobin.total in Blood HBA1C [facility] Start: 12-28-2021 Hepatitis C antibody, confirmatory test DILATED RETINAL EXAM [facility] Start: 10-07-2021 ADVANCE DIRECTIVE DISCUSSION [facility] Start: 10-07-2021 DEPRESSION ASSESSMENT DEPRESSION ASSESSMENT [facility] Start: 2012 RSV Vaccine (1 - 1-dose 75+ series) RSV Vaccine (1 - 1-dose 75+ series) [facility] Start: 06-13-2007 Urine microalbumin profile [facility] Start: 1997 Hepatitis B Vaccine (1 of 3 - Risk 3-dose series) Hepatitis B Vaccine (1 of 3 - Risk 3-dose series) [facility] Start: 1997 RSV Vaccine (1 - 1-dose 60+ series) RSV Vaccine (1 - 1-dose 60+ series) [facility] Start: 1955 Anxiety Screening Anxiety Screening [facility] Start: 1955 Depression Screening Depression Screening [facility] 24 Hour ECG [facility] Work Phone: Alanine aminotransfe rase [Enzymatic activity/volume] in Serum or Plasma [facility] Work Phone: Alanine aminotransfe rase [Enzymatic activity/volume] in Serum or Plasma [facility] Alanine aminotransfe rase [Enzymatic activity/volume] in Serum or Plasma [facility] Albumin [Mass/volume ] in Serum or Plasma [facility] Work Phone: Albumin [Mass/volume ] in Serum or Plasma [facility] Albumin [Mass/volume ] in Serum or Plasma [facility] Alkaline phosphatase [Enzymatic activity/volume] in Serum or Plasma [facility] Work Phone: Alkaline phosphatase [Enzymatic activity/volume] in Serum or Plasma [facility] Alkaline phosphatase [Enzymatic activity/volume] in Serum or Plasma [facility] Ambulatory blood pre ssure recording [facility] Work Phone: Anion gap in Serum or Plasma [facility] Anion gap in Serum or Plasma [facility] Anion gap measurement [facility] Work Phone: Aspartate aminotrans ferase [Enzymatic activity/volume] in Serum or Plasma [facility] Work Phone: Bacteria identified in Sputum by Culture [facility] Bilirubin, total measurement [facility] Work Phone: Bilirubin, total measurement [facility] Bilirubin, total measurement [facility] Bilirubin.direct [Mass/volume] in Serum or Plasma [facility] Bilirubin.direct [Mass/volume] in Serum or Plasma [facility] Blood chemistry [facility] Work Phone: BUN/Creatinine ratio [facility] Work Phone: BUN/Creatinine ratio [facility] BUN/Creatinine ratio [facility] Calcium [Mass/volume ] in Serum or Plasma [facility] Work Phone: Calcium [Mass/volume ] in Serum or Plasma [facility] Calcium [Mass/volume ] in Serum or Plasma [facility] Carbon dioxide, tota l [Moles/volume] in Central venous blood [facility] Carbon dioxide, tota l [Moles/volume] in Central venous blood [facility] Carbon dioxide, tota l [Moles/volume] in Serum or Plasma [facility] Work Phone: Cardiac event recording [facility] CBC W Auto Different ial panel - Blood [facility] Chloride [Moles/volu me] in Serum or Plasma [facility] Work Phone: Cholesterol [Mass/vo lume] in Serum or Plasma [facility] Work Phone: Cholesterol in HDL [Mass/volume] in Serum or Plasma [facility] Work Phone: Cholesterol in LDL [Mass/volume] in Serum or Plasma [facility] Work Phone: End: 04-26-2023 COLONOSCOPY DIAGNOSTIC COLONOSCOPY DIAGNOSTIC Endoscopy Routine Chronic idiopathic constipation Altered bowel habits 1 Occurrences starting 04/26/2022 until 04/26/2023 [facility] Work Phone: Comment on above: 1 Occurrences starting 04/26/2022 until 04/26/2023 Creatinine [Mass/vol ume] in Serum or Plasma [facility] Creatinine [Mass/vol ume] in Serum or Plasma [facility] Creatinine [Moles/vo lume] in Serum or Plasma [facility] Work Phone: CT Unspecified body region WO contrast [facility] End: 06-12-2024 Cta abdl aorta&bi iliofem w/contrast&postp CTA ABD/PEL LOWER EXTREM W IVCON Radiology Routine Peripheral vascular disease (HCC) 1 Occurrences starting 05/21/2023 until 06/12/2024 [facility] Work Phone: Comment on above: 1 Occurrences starting 05/21/2023 until 06/12/2024 End: 09-06-2024 Echocardiography ECHO Cardiology Routine Encounter for screening for cardiovascular disorders 1 Occurrences starting 09/06/2023 until 09/06/2024 [facility] Work Phone: Comment on above: 1 Occurrences starting 09/06/2023 until 09/06/2024 Erythrocyte mean cor puscular volume determination [facility] Erythrocyte mean cor puscular volume determination [facility] Ferritin [Mass/volum e] in Serum or Plasma [facility] End: 02-25-2025 Flexible sigmoidoscopy study COLONOSCOPY DIAGNOSTIC Endoscopy Routine Mass of colon 1 Occurrences starting 02/26/2024 until 02/25/2025 [facility] Work Phone: Comment on above: 1 Occurrences starting 02/26/2024 until 02/25/2025 Flexible sigmoidoscopy study COL ONOSCOPY DIAGNOSTIC Endoscopy Routine Mass of colon 03/05/2024 11:47 AM EDT [facility] Glucose [Mass/volume ] in Serum or Plasma [facility] Work Phone: Glucose [Mass/volume ] in Serum or Plasma [facility] Glucose [Mass/volume ] in Serum or Plasma [facility] Hematocrit [Volume F raction] of Blood [facility] Work Phone: Hematocrit [Volume F raction] of Blood [facility] Hematocrit [Volume F raction] of Blood [facility] Hemoglobin [Mass/vol ume] in Blood [facility] Work Phone: Hemoglobin [Mass/vol ume] in Blood [facility] Hemoglobin [Mass/vol ume] in Blood [facility] Hemoglobin A1c/Hemoglobin.total in Blood [facility] INR in Blood by Coag ulation assay [facility] INR in Blood by Coag ulation assay [facility] Iron [Mass/mass] in Unspecified specimen [facility] Iron saturation [Mas s Fraction] in Serum or Plasma [facility] Legionella pneumophi la Ag [Presence] in Urine [facility] Work Phone: Leukocytes [#/volume ] in Blood [facility] Work Phone: Leukocytes [#/volume ] in Blood [facility] Leukocytes [#/volume ] in Blood [facility] Lipid 1996 panel - S antonette or Plasma [facility] Work Phone: Magnesium measurement [facility] Magnesium measurement [facility] Magnesium measurement [facility] Mean corpuscular hem oglobin concentration determination [facility] Work Phone: Mean corpuscular hem oglobin concentration determination [facility] Mean corpuscular hem oglobin concentration determination [facility] Mean corpuscular hem oglobin determination [facility] Work Phone: Mean corpuscular hem oglobin determination [facility] Mean corpuscular hem oglobin determination [facility] Measurement of occul t blood in stool specimen using immunoassay [facility] Measurement of renal function [facility] Work Phone: Measurement of renal function [facility] Measurement of renal function [facility] Measurement of respi ratory function [facility] Neutrophil count [facility] Work Phone: Neutrophil count [facility] Neutrophil count [facility] Neutrophil percent differential count [facility] Work Phone: Neutrophil percent differential count [facility] Neutrophil percent differential count [facility] End: 10-05-2024 NM CARDIAC PERF STRESS/PHARM NM CARDIAC PERF STRESS/PHARM Radiology Routine Encounter for screening for cardiovascular disorders 1 Occurrences starting 09/06/2023 until 10/05/2024 [facility] Work Phone: Comment on above: 1 Occurrences starting 09/06/2023 until 10/05/2024 Patient Education [facility] Work Phone: Patient referral [facility] Work Phone: Platelets [#/volume] in Blood [facility] Work Phone: Platelets [#/volume] in Blood [facility] Platelets [#/volume] in Blood [facility] Potassium [Moles/vol ume] in Serum or Plasma [facility] Work Phone: Potassium measurement [facility] Potassium measurement [facility] Potassium measurement [facility] End: 09-06-2024 [facility] ANK [facility]ESS [facility] Vascular Lab Routine Peripheral vascular disease (HCC) 1 Occurrences starting 09/06/2023 until 09/06/2024 [facility] Work Phone: Comment on above: 1 Occurrences starting 09/06/2023 until 09/06/2024 End: 01-09-2023 [facility] LEG [facility] Vascular Lab Routine Peripheral arterial disease (HCC) 1 Occurrences starting 01/09/2022 until 01/09/2023 [facility] Work Phone: Comment on above: 1 Occurrences starting 01/09/2022 until 01/09/2023 Red blood cell count [facility] Work Phone: Red blood cell count [facility] Red blood cell count [facility] Red cell distributio n width determination [facility] Work Phone: Red cell distributio n width determination [facility] Red cell distributio n width determination [facility] Respiratory pathogen s DNA and RNA 12b panel - Unspecified specimen by GARRETT with probe detection [facility] Work Phone: Serum chloride measurement [facility] Serum chloride measurement [facility] Sodium [Moles/volume ] in Serum or Plasma [facility] Work Phone: Sodium measurement [facility] Sodium measurement [facility] Streptococcus pneumo niae antigen assay [facility] Work Phone: SURGICAL PATHOLOGY [facility] Work Phone: Comment on above: Release Upon Ordering for 1 Occurrences starting 03/05/2024 Total iron binding c apacity measurement [facility] Total protein measurement [facility] Work Phone: Total protein measurement [facility] Total protein measurement [facility] Triglycerides measurement [facility] Work Phone: Troponin I measurement [facility] Work Phone: Troponin T.cardiac [Mass/volume] in Serum or Plasma by High sensitivity method [facility] Urea nitrogen [Mass/ volume] in Serum or Plasma [facility] Work Phone: Urea nitrogen [Mass/ volume] in Serum or Plasma [facility] Urea nitrogen [Mass/ volume] in Serum or Plasma [facility] End: 01-09-2023 US ABD AORTA [facility]TE [facility] US ABD [facility] Vascular Lab Routine Peripheral arterial disease (HCC) 1 Occurrences starting 01/09/2022 until 01/09/2023 [facility] Work Phone: Comment on above: 1 Occurrences starting 01/09/2022 until 01/09/2023 US Carotid arteries [facility] End: 06-30-2025 US.doppler Extremity arteries - bilateral for physiologic artery study [facility] Vascular Lab Routine Peripheral arterial disease (HCC) 1 Occurrences starting 06/30/2024 until 06/30/2025 [facility] Work Phone: Comment on above: 1 Occurrences starting 06/30/2024 until 06/30/2025 VLDL cholesterol measurement [facility] Work Phone: XR ABDOMEN 1V SUPINE XR ABDOMEN 1V SUPINE Radiology Routine Chronic idiopathic constipation Altered bowel habits 05/02/2022 10:48 AM EDT [facility] Work Phone: End: 06-13-2023 XR ABDOMEN 1V SUPINE XR ABDOMEN 1V SUPINE Radiology Routine Altered bowel habits 1 Occurrences starting 05/14/2022 until 06/13/2023 [facility] Work Phone: Comment on above: 1 Occurrences starting 05/14/2022 until 06/13/2023 [facility] Immunizations Immunization Date Immunization Notes Care Provider [facility] 06-29-2024 influenza, high dose seasonal, preservative-free Dr. Riaz Garrison MD Work Phone: [facility] 06-29-2024 influenza virus vacc ine, unspecified formulation Darryl Mallory DO Work Phone: [facility] 06-26-2023 Influenza High-Dose Quadrivalent Dr. Riaz Garrison Work Phone: [facility] 06-26-2023 influenza virus vacc ine, unspecified formulation Vipul Richard Work Phone: [facility] 07-24-2022 Influenza High-Dose Quadrivalent Dr. Riaz Garrison Work Phone: [facility] 07-24-2022 Influenza, high dose seasonal Dr. Riaz Garrison MD Work Phone: [facility] 07-24-2022 influenza, high dose seasonal, preservative-free Dr. Riaz Garrison Work Phone: [facility] 03-13-2022 Covid (Pfizer) Dr. Emeka Horn Work Phone: [facility] 08-07-2021 COVID-19 vaccine, ag e 12+ yr (PFIZER-BIONTECH - PURPLE TOP) Darryl Mallory DO Work Phone: [facility] Work Phone: 06-28-2021 Influenza, high dose seasonal Dr. Riaz Garrison MD Work Phone: [facility] 06-28-2021 influenza, high dose seasonal, preservative-free Darryl Mallory DO Work Phone: [facility] Work Phone: 11-23-2020 COVID-19 vaccine, ag e 12+ yr (PFIZER-BIONTECH - PURPLE TOP) Darryl Mallory DO Work Phone: [facility] Work Phone: 11-02-2020 COVID-19 vaccine, ag e 12+ yr (PFIZER-BIONTECH - PURPLE TOP) Darryl Malolry DO Work Phone: [facility] 10-10-2020 zoster vaccine recombinant Darryl Mallory DO Work Phone: [facility] Work Phone: 08-02-2020 zoster vaccine recombinant Darryl Mallory DO Work Phone: [facility] Work Phone: 07-25-2020 Influenza, high dose seasonal Dr. Riaz Garrison MD Work Phone: [facility] 07-25-2020 influenza, high dose seasonal, preservative-free Dr. Emeka Horn Work Phone: [facility] 07-25-2020 influenza, high-dose , quadrivalent vaccine (FLUZONE HIGH DOSE QUADRIVALENT) Darryljame Mallory DO Work Phone: [facility] Work Phone: 07-25-2020 pneumococcal polysaccharide vaccine, 23 valent Darryl Mallory DO Work Phone: [facility] Work Phone: 06-23-2019 Influenza, high dose seasonal Dr. Riaz Garrison MD Work Phone: [facility] 06-23-2019 influenza, high dose seasonal, preservative-free Darryl Stephen DO Work Phone: [facility] Work Phone: 06-22-[address] Emeka Horn Work Phone: [facility] 07-18-2018 Influenza, high dose seasonal Dr. Riaz Garrison MD Work Phone: [facility] 07-18-2018 influenza, high dose seasonal, preservative-free Darryl Mallory DO Work Phone: [facility] 07-04-2018 Influenza, high dose seasonal Dr. Riaz Garrison MD Work Phone: [facility] 07-04-2018 influenza, high dose seasonal, preservative-free Dr. Emeka Horn Work Phone: [facility] 07-06-2017 Influenza, high dose seasonal Dr. Riaz Garrison MD Work Phone: [facility] 07-06-2017 influenza, high dose seasonal, preservative-free Darryl Mallory DO Work Phone: [facility] 08-13-2016 influenza, injectabl e, quadrivalent, contains preservative Darryl Mallory DO Work Phone: [facility] Work Phone: 08-13-2016 influenza, injectabl e, quadrivalent, preservative free Dr. Riaz Garrison Work Phone: [facility] 08-13-2016 influenza, seasonal, injectable Dr. Emeka Horn Work Phone: [facility] 07-31-2016 Influenza, high dose seasonal Dr. Riaz Garrison MD Work Phone: [facility] 07-31-2016 influenza, high dose seasonal, preservative-free Dr. Emeka Horn Work Phone: [facility] 10-11-2015 Influenza, high dose seasonal Dr. Riaz Garrison MD Work Phone: [facility] 10-11-2015 influenza, high dose seasonal, preservative-free Darryljame Mallory DO Work Phone: [facility] 05-11-2015 pneumococcal conjuga te vaccine, 13 valent Darryljame Mallory DO Work Phone: [facility] 07-23-2013 influenza virus vacc ine, whole virus Darryljame Mallory DO Work Phone: [facility] Work Phone: 07-03-2012 influenza virus vacc ine, unspecified formulation Darryl Mallory DO Work Phone: [facility] Work Phone: 06-25-2011 influenza virus vacc ine, unspecified formulation Darryl Mallory DO Work Phone: [facility] Work Phone: 08-04-2010 influenza virus vacc ine, unspecified formulation Darryl Stephen DO Work Phone: [facility] Work Phone: 10-05-2009 novel influenza-H1N1 -09, preservative-free, injectable Darryl Mallory DO Work Phone: [facility] Work Phone: 07-19-2009 influenza virus vacc ine, unspecified formulation Darryl Mallory DO Work Phone: [facility] 06-30-2008 pneumococcal polysaccharide vaccine, 23 valent Darryl Mallory DO Work Phone: [facility] Work Phone: 08-06-2007 influenza virus vacc ine, unspecified formulation Darryl Mallory DO Work Phone: [facility] Work Phone: 06-12-2007 tetanus and diphther ia toxoids, adsorbed, preservative free, for adult use (2 Lf of tetanus toxoid and 2 Lf of diphtheria toxoid) Darryl Mallory DO Work Phone: [facility] Work Phone: 08-12-2003 pneumococcal polysaccharide vaccine, 23 valent Darryl Mallory DO Work Phone: [facility] Work Phone: Payers Date Payer Category Payer Self-pay [id number] 2022 [place] [id number] 2016 Medicare [id number] 2007 Medicare [employer] [place] [id number] 2007-Present [phone] [address] [place] [address] [facility] [id number] 2007 Medicare [id number] Unknown [id number] Unknown [id number] 2.16.840.1.969216.3.579. 2.462 Unknown [id number] 2.16840.1.746207.3.579. 2.462 Unknown [id number] 2.16840.1.116942.3.579. 2.462 Unknown [id number] 2.16840.1.605896.3.579. 2.462 Unknown [id number] 2.16840.1.703627.3.579. 2.462 Unknown [id number] 2.16.840.1.098907.3.579. 2.462 Unknown [id number] 2.16840.1.601850.3.579. 2.462 Unknown [id number] 2.16840.1.517885.3.579. 2.462 Unknown [id number] 2.16.840.1.639219.3.579. 2.462 Unknown [id number] 2.16840.1.734527.3.579. 2.462 Unknown [id number] 2.16.840.1.435658.3.579. 2.462 Unknown [id number] 2.16840.1.605766.3.579. 2.462 Unknown [id number] 2.16840.1.811760.3.579. 2.462 Unknown [id number] 2.16.840.1.989862.3.579. 2.462 Unknown [id number] 2.16.840.1.943688.3.579. 2.462 Unknown [id number] 2.16.840.1.420510.3.579. 2.462 Unknown [id number] 2.16.840.1.693244.3.579. 2.462 Unknown [id number] 2.16.840.1.108307.3.579. 2.462 Unknown [id number] 2.16.840.1.286989.3.579. 2.462 Unknown [id number] 2.16840.1.939854.3.579. 2.462 Unknown [id number] 2.16840.1.916991.3.579. 2.462 Unknown [id number] 2.16840.1.400223.3.579. 2.462 Unknown [id number] 2.16840.1.281859.3.579. 2.462 Unknown [id number] 2.16.840.1.018250.3.579. 2.462 Unknown [id number] 2.16.840.1.610057.3.579. 2.462 Unknown [id number] 2.16.840.1.513338.3.579. 2.462 Unknown [id number] 2.16840.1.052204.3.579. 2.462 Unknown [id number] 2.16.840.1.235702.3.579. 2.462 Unknown [id number] 2.16.840.1.673304.3.579. 2.462 Unknown [id number] 2.16.840.1.626962.3.579. 2.462 Unknown [id number] 2.16.840.1.739284.3.579. 2.462 Unknown [id number] 2.16.840.1.493818.3.579. 2.462 Unknown [id number] 2.16.840.1.464606.3.579. 2.462 Unknown [id number] 2.16.840.1.175325.3.579. 2.462 Unknown [id number] 2.16.840.1.869291.3.579. 2.462 Unknown [id number] 2.16.840.1.625924.3.579. 2.462 Unknown [id number] 2.16.840.1.867302.3.579. 2.462 Unknown [id number] 2.16.840.1.938184.3.579. 2.462 Unknown [id number] 2.16.840.1.558198.3.579. 2.462 Unknown [id number] 2.16.840.1.363772.3.579. 2.462 Unknown [id number] 2.16.840.1.959503.3.579. 2.462 Unknown [id number] 2.16.840.1.746976.3.579. 2.462 Unknown [id number] 2.16.840.1.427366.3.579. 2.462 Unknown [id number] 2.16.840.1.900922.3.579. 2.462 Unknown [id number] 2.16.840.1.371753.3.579. 2.462 Unknown [id number] 2.16.840.1.096850.3.579. 2.462 Unknown [id number] 2.16.840.1.977701.3.579. 2.462 Unknown [id number] 2.16.840.1.796686.3.579. 2.462 Unknown [id number] 2.16.840.1.455676.3.579. 2.462 Unknown [id number] 2.16.840.1.978237.3.579. 2.462 Unknown [id number] 2.16.840.1.006191.3.579. 2.462 Unknown [id number] 2.16.840.1.799826.3.579. 2.462 Unknown [id number] 2.16.840.1.790303.3.579. 2.462 Unknown [id number] 2.16.840.1.323330.3.579. 2.462 Unknown [id number] 2.16.840.1.740237.3.579. 2.462 Unknown [id number] 2.16.840.1.799511.3.579. 2.462 Unknown [id number] 2.16.840.1.666478.3.579. 2.462 Unknown [id number] 2.16.840.1.022034.3.579. 2.462 Unknown [id number] 2.840.1.237034.3.579. 2.462 Unknown [id number] 2.840.1.586328.3.579. 2.462 Unknown [id number] 2.16840.1.513752.3.579. 2.462 Unknown [id number] 2.840.1.589221.3.579. 2.462 Unknown [id number] 2.16840.1.366399.3.579. 2.462 Unknown [id number] 2.840.1.067273.3.579. 2.462 Unknown [id number] 2.16.840.1.825360.3.579. 2.462 Unknown [id number] 2.16840.1.526092.3.579. 2.462 Unknown [id number] 2.16.840.1.005455.3.579. 2.462 Unknown [id number] 2.16.840.1.660925.3.579. 2.462 Unknown [id number] 2.16.840.1.503611.3.579. 2.462 Unknown [id number] 2.16.840.1.871497.3.579. 2.462 Unknown [id number] 2.16.840.1.344997.3.579. 2.462 Unknown [id number] 2.16.840.1.100638.3.579. 2.462 Unknown [id number] 2.16.840.1.870556.3.579. 2.462 Social History Date Type Detail Facility Start: 05-14-2022 End: 04-27-2025 Tobacco smoking status NHIS Ex-smoker [facility] Start: 02-04-1956 End: 02-05-2008 History of tobacco use Current smoker [facility] Start: [birth year]-04-1956 End: 02-05-2008 History of tobacco use Cigarette Smoker [facility] End: 02-05-2008 History of tobacco use Cigar Smoker [facility] Start: 10-12-2021 End: 05-04-2025 Alcohol intake Current drinker of alcohol (finding) [facility] Start: 08-31-2020 End: 08-10-2021 History SDOH Alcohol Frequency 2 [facility] Start: 08-31-2020 End: 12-21-2020 History SDOH Alcohol Std Drinks 1 [facility] Start: 02-12-2011 History SDOH Alcohol Comment Rare [facility] Start: 02-16-2020 End: 07-19-2020 History SDOH Social Connections Meetings 3 [facility] Start: 02-16-2020 End: 07-19-2020 History SDOH Physical Activity DPW 4 [facility] Start: 09-30-2019 Education 12 [facility] Start: 1935 Sex Assigned At Male [facility] Start: 12-04-2021 End: 09-06-2022 Exposure to SARS-CoV-2 (event) Not sure [facility] Start: 01-24-2022 End: 09-12-2023 Tobacco smoking status NEIS Unknown if ever smoked [facility] Start: 02-27-2021 Occasional [facility] Start: 02-27-2021 None [facility] Start: 02-27-2021 Non-smoker [facility] Start: 05-14-2022 End: 03-29-2023 Cigarettes smoked current (pack per day) - Reported 0.5 [facility] Start: 05-14-2022 End: 02-09-2025 Tobacco use and exposure Smokeless tobacco non-user [facility] Work Phone: Start: 02-16-2020 End: 03-29-2023 Social connection and isolation panel [facility] Do you belong to any clubs or organizations such as sikh groups, unions, fraternal or athletic groups, or school groups? Yes [facility] Are you now , , , , never or living with a partner? [facility] How often to you hav e a drink containing alcohol? Monthly or less [facility] How many standard dr inks containing alcohol do you have on a typical day? 1 or 2 [facility] How often do you hav e 6 or more drinks on 1 occasion? Never [facility] How hard is it for y ou to pay for the very basics like food, housing, medical care, and heating Not very hard [facility] Adult Depression Screening Assessment 0 [facility] Do you feel stress - tense, restless, nervous, or anxious, or unable to sleep at night because your mind is troubled all the time - these days [OSQ] To some extent [facility] (I/We) worried wheth er (my/our) food would run out before (I/we) got money to buy more. Never true [facility] In the past 12 month s, was there a time when you were not able to pay the mortgage or rent on time? No [facility] Start: 07-02-2019 Gender identity Identifies as male gender (finding) [facility] Start: 02-17-2020 Sexual orientation Heterosexual (finding) [facility] Work Phone: Start: 12-14-2024 End: 01-29-2025 Sex Male (finding) [facility] Medical Equipment Procedure Code Equipment Code Equipment Origin al Text Equipment Identifier Dates Patch Vascu-Guar d Taper Bovine Pericardial 8x.8cm Cardiovascular [place] - [id number]_[facility] Start: 08-05-2018 Comment on above: Description: Ricardo Guard Peripheral Vasc Patch [id number], [id number] Start: 06-23-2020 End: 05-04-2025 Comment on above: Test blood sugar(s) 2 times daily. 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 Blood Sugar Diagnostic (Onetouch Ultra Test) strip Start: 07-11-2022 Blood Sugar Diagnostic (Onetouch Ultra Test) strip Start: 07-11-2022 End: 07-11-2022 Blood Sugar Diagnostic (Onetouch Ultra Test) strip Start: 07-11-2022 Blood Sugar Diagnostic (Onetouch Ultra Test) strip Start: 07-11-2022 End: 07-11-2022 Blood Sugar Diagnostic (Onetouch Ultra Test) strip Start: 05-16-2023 Lancets Start: 05-16-2023 Blood Sugar Diagnostic (Onetouch Ultra Test) strip Start: 07-11-2022 End: 07-11-2022 Blood Sugar Diagnostic (Onetouch Ultra Test) strip Start: 07-11-2022 End: 05-16-2023 Blood Sugar Diagnostic (Onetouch Ultra Test) strip Start: 05-16-2023 Lancets Start: 05-16-2023 Blood Sugar Diagnostic (Onetouch Ultra Test) strip Start: 07-11-2022 End: 07-11-2022 Blood Sugar Diagnostic (Onetouch Ultra Test) strip Start: 07-11-2022 End: 05-16-2023 Blood Sugar Diagnostic (Onetouch Ultra Test) strip Start: 05-16-2023 Lancets Start: 07-18-2023 Blood Sugar Diagnostic (Onetouch Ultra Test) strip Start: 07-11-2022 End: 07-11-2022 Blood Sugar Diagnostic (Onetouch Ultra Test) strip Start: 07-11-2022 End: 05-16-2023 Lancets Start: 05-16-2023 End: 07-18-2023 Blood Sugar Diagnostic (Onetouch Ultra Test) strip Start: 05-16-2023 Lancets Start: 07-18-2023 Blood Sugar Diagnostic (Onetouch Ultra Test) strip Start: 07-11-2022 End: 07-11-2022 Blood Sugar Diagnostic (Onetouch Ultra Test) strip Start: 07-11-2022 End: 05-16-2023 Lancets Start: 05-16-2023 End: 07-18-2023 Blood Sugar Diagnostic (Onetouch Ultra Test) strip Start: 09-16-2023 Lancets Start: 07-18-2023 Pen Needle, Diab etic (1st Tier Unifine Pentips) 31 gauge x 1/4 needle Start: 09-16-2023 Blood Sugar Diagnostic (Onetouch Ultra Test) strip Start: 05-16-2023 End: 09-16-2023 Blood Sugar Diagnostic (Onetouch Ultra Test) strip Start: 07-11-2022 End: 07-11-2022 Blood Sugar Diagnostic (Onetouch Ultra Test) strip Start: 07-11-2022 End: 05-16-2023 Lancets Start: 05-16-2023 End: 07-18-2023 [facility] 3/16x.25in Thk1.65mm Rectangle Ptfe [place] - [id number] Start: 11-12-2023 Patch Xenosure B ovine Pericardial Tissue 8x.8cm [facility] - [id number] Start: 11-12-2023 Goals Date Patient Goal Desired Activity /State Personal health goal Functional Status Date Assessment Result Facility 03-09-2025 Functional status Ambulates [facility] Work Phone: 02-22-2025 Functional status Ambulates;Jarek r;Bathroom Privilege [facility] Work Phone: 02-18-2025 Functional status Ambulates;Chair [facility] Work Phone: 12-17-2024 Functional status Chair [facility] Work Phone: 12-14-2024 Functional status Bedrest [facility] Work Phone: 01-29-2024 Functional status Ambulates;Chair [facility] Work Phone: 11-15-2023 Are you deaf, or do you have serious difficulty hearing No 11/15/2023 1:54 PM Cassie Lomax RN No [facility] 11-15-2023 Are you blind, or do you have serious difficulty seeing, even when wearing glasses No 11/15/2023 1:54 PM Cassie Lomax RN No [facility] 11-15-2023 Do you have serious difficulty walking or climbing stairs No 11/15/2023 1:54 PM Cassie Lomax, COLLEEN No [facility] 11-15-2023 Do you have difficul ty dressing or bathing No 11/15/2023 1:54 PM Cassie Lomax, RN No [facility] 11-15-2023 Because of a physica l, mental, or emotional condition, do you have difficulty doing errands alone such as visiting a physician's office or shopping No 11/15/2023 1:54 PM Cassie Lomax, COLLEEN No [facility] 09-12-2023 Functional status Ambulates;Bath room Privilege [facility] Work Phone: 06-14-2022 Functional status Ambulates;Chair [facility] Work Phone: 06-06-2022 Functional status Chair [facility] Work Phone: 06-05-2022 Functional status None [facility] Work Phone: 05-16-2022 Functional status Chair;Bathroom Privileg e [facility] Work Phone: 03-22-2022 Functional status Independent [facility] Work Phone: 03-21-2022 Functional status Up ad ena [facility] Work Phone: 03-09-2022 Functional status Chair [facility] Work Phone: Mental Status Date Assessment Result Facility 03-08-2025 Cognitive function Voice/Name [facility] Work Phone: 03-04-2025 Cognitive function Awake;Alert;A ppropriate;Fol lows Commands [facility] Work Phone: 02-22-2025 Cognitive function Voice/Name [facility] Work Phone: 02-19-2025 Cognitive function Awake;Alert;A ppropriate;Fol lows Commands [facility] Work Phone: 02-18-2025 Cognitive function Voice/Name [facility] Work Phone: 01-29-2025 Cognitive function Voice/Name [facility] Work Phone: 12-16-2024 Cognitive function Voice/Name [facility] Work Phone: 12-14-2024 Cognitive function Voice/Name [facility] Work Phone: 02-13-2024 Cognitive function Voice/Name [facility] Work Phone: 02-11-2024 Cognitive function Awake;Alert;Appropriat e [facility] Work Phone: 01-29-2024 Cognitive function Voice/Name [facility] Work Phone: 11-15-2023 Because of a physica l, mental, or emotional condition, do you have serious difficulty concentrating, remembering, or making decisions No 11/15/2023 1:54 PM Cassie Lomax RN [facility] 09-12-2023 Cognitive function Awake;Alert;A ppropriate;Fol lows Commands [facility] Work Phone: 09-12-2023 Cognitive function Voice/Name [facility] Work Phone: 06-14-2022 Cognitive function Demonstrates ability to follow instructions/comprehend [facility] Work Phone: 06-13-2022 Cognitive function Voice/Name [facility] Work Phone: 06-06-2022 Cognitive function Voice/Name [facility] Work Phone: 06-02-2022 Cognitive function Level Of Cons ciousness Awake;Alert;Appropriate;Fol lows Commands [facility] Work Phone: 05-28-2022 Cognitive function Awake;Alert;A ppropriate;Fol lows Commands [facility] Work Phone: 05-16-2022 Cognitive function Voice/Name [facility] Work Phone: 03-22-2022 Cognitive function Voice/Name [facility] Work Phone: 03-09-2022 Cognitive function Voice/Name [facility] Work Phone: Clinical Notes 05-11-2015 to 05-31-2025 Note Date & Type Note Facility 05-31-2025 Progress note Note Date/Time May 31, 2025 2:18pm [facility] [address] [place] [address] OFFICE VISIT Date of Service: 05/31/25 MR#: [id number] Acct: [id number] Name: DESIREE AMES Rep #: [id number] : 1935 Provider: ANNA Stearns Age/Sex: 89/M Location: [facility] Status: Signed HPI HPI History of Present Illness Details: DESIREE AMES, is an 89 M with a history of coronary artery disease with angioplasty and stenting of his RCA with mild residual disease in his distal RCA. He also has a history of abdominal aortic aneurysm, hypertension, hyperlipidemia, obstructive sleep apnea, COPD, and chronic kidney disease. Pt has had several hospitalizations over the last year for CHF. Patient was in his PCPs office on 12/12/2023, and was noted to be in atrial fibrillation. He was started on Eliquis 2.5 mg twice daily at that time. He was seen in the emergency room January 29, 2025 with chest pain. Troponins trended 46, 39, 37. Case was discussed with applique sewer on-call. It was felt that he could follow-up with us in the office. Patient was hospitalized 3 other times since the end of January 2025. Ejection fraction was noted to have been slightly decreased at 40% during 1 of those visits. Medical management has been recommended. He acknowledges occasional chest discomfort that is relieved with nitroglycerin. This is located epigastric area. This is approximately once a week. He denies palpitations. He acknowledges bilateral lower extreme edema that is controlled with compression stockings. He acknowledges shortness of breath with activity. Denies shortness of breath at rest, orthopnea, cough, or PND. He denies lightheadedness, dizziness, near-syncope, syncope, weakness, or fatigue. 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 Accompanied by: Is patient in pain?: No Allergies cilostazol (From Pletal) Allergy (Verified 05/31/25 13:13) Unknown felodipine Allergy (Verified 05/31/25 13:13) Hives levofloxacin Allergy (Verified 05/31/25 13:13) Hives Sulfa (Sulfonamide Antibiotics) Allergy (Verified 05/31/25 13:13) Unknown isosorbide Adverse Reaction (Intermediate, Verified 05/31/25 13:13) low BP Medications ?Medication ?Instructions ?Recorded ?Confirmed ?Type handicap placcard #1 ea 09/28/19 05/19/25 Rx coenzyme Q10 100 mg capsule (Co 100 mg PO DAILY supple ment 05/03/20 05/31/25 History Q-10) cholecalciferol (vitamin D3) 100 100 mcg PO DAILY supp lement 11/03/20 05/31/25 History mcg (4,000 unit) tablet spacer #1 ea 01/12/21 05/19/25 Rx lancets #180 ea 07/18/23 05/19/25 Rx tamsulosin 0.4 mg capsule 0.4 mg PO DAILY prostate 05/31/25 History finasteride 5 mg tablet 5 mg PO DAILY prostate 06/2805/31/25 History handicap placard #1 ea 10/12/24 05/19/25 Rx apixaban 2.5 mg tablet (Eliquis) 2.5 mg PO BID atrial fibrillation 12/14/24 05/31/25 Rx #180 tabs ipratropium bromide 21 mcg (0.03 2 spray intranasal BI D PRN allergy 12/14/24 05/31/25 History %) nasal spray symptoms blood sugar diagnostic (OneTouch #180 ea 12/21/2405/07 Rx Ultra Test strips) albuterol sulfate 90 mcg/actuation 2 inh inhalation Q4 H PRN shortness 01/04/25 05/31/25 Rx aerosol inhaler (Ventolin HFA) of breath or wheezing # 18 grams ranolazine 500 mg tablet,extended 500 mg PO BID chest pain #180 tabs 01/26/25 05/31/25 Rx release,12 hr ipratropium 0.5 mg-albuterol 3 mg 3 ml inhalation TID SOB &/OR 01/29/25 05/31/25 History (2.5 mg base)/3 mL nebulization 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,rug designer,cont #1 ea 02/01/25 05/19/25 Rx (FreeStyle [place] 3 [place]) nitroglycerin 0.4 mg sublingual 0.4 mg sublingual Q5-1 5M PRN chest 02/15/25 05/31/25 Rx tablet (Nitrostat) pain #25 tabs 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 sensor (FreeStyle #3 ea 03/12/25 5 Rx Dwight 3 Plus Sensor device) pantoprazole 40 mg tablet,delayed 40 mg PO DAILY reflu x #90 tabs 03/12/25 05/31/25 Rx release lactulose 10 gram/15 mL oral 20 g PO DAILY PRN constip ation 03/19/25 05/31/25 History solution budesonide-formoterol HFA 160 2 puff inhalation BID co pd #3 ea 03/23/25 05/31/25 Rx mcg-4.5 mcg/actuation aerosol inhaler (Symbicort) pen needle, diabetic 31 gauge x #100 ea 03/24/2505/19 Rx 1/4 (Unifine Pentips) ferrous sulfate 325 mg (65 mg 325 mg PO DAILY low iron #30 tabs 03/29/25 05/31/25 Rx iron) tablet (FeroSul) atorvastatin 40 mg tablet 40 mg PO QODAY cholesterol 0 04/05/25 05/31/25 History mecobalamin (vitamin B12) 1,000 1,000 mcg PO QDAY 03/0905/31/25 History mcg chewable tablet (B12 Active) ropinirole 1 mg tablet See Rx Instructions PO QHS P RN 04/05/25 05/31/25 History restless leg potassium chloride 20 mEq 20 meq PO BID supplement #60 tabs 04/06/25 05/31/25 Rx tablet,extended release(part/cryst) carvedilol 6.25 mg tablet 6.25 mg PO BID #180 tabs 12/2905/31/25 Rx furosemide 40 mg tablet 40 mg PO .COMPLEX #270 tabs 04/27/25 05/31/25 Rx gabapentin 100 mg capsule 100 mg PO QDAY 04/27/25 08/02/28 History montelukast 10 mg tablet 10 mg PO QHS Respiratory #90 tabs 05/21/25 05/31/25 Rx hydralazine 100 mg tablet 100 mg PO BID hypertension # 180 05/24/25 05/31/25 Rx tabs empagliflozin 10 mg tablet 10 mg PO DAILY #30 tabs 05/31/25 Rx (Jardiance) insulin aspart U-100 100 unit/mL 10 unit subcut TID NV N diabetes 05/31/25 History subcutaneous cartridge (Novolog PenFill U-100 Insulin aspart) insulin glargine 100 unit/mL (3 20 unit subcut DAILY d iabetes 05/31/25 05/31/25 History mL) subcutaneous pen (Lantus Solostar U-100 Insulin) magnesium oxide 500 mg capsule 500 mg PO QDAY 05/31/25 05/31/25 History Ejection fraction %: 40 Have you fallen in the past year?: Yes [facility] Medical History Trigger thumb, left thumb Left wrist pain Hypoxia Tremor Pneumonia Peripheral edema Chronic systolic (congestive) heart failure Unsteady gait when walking Muscle twitching Neuropathy Leukocytosis Obesity (BMI 30.0-34.9) Diastolic CHF, acute on chronic Atrial fibrillation/flutter Right carotid bruit Stable angina GERD (gastroesophageal reflux disease) Myocardial infarct Complicated urinary tract infection Urinary tract infection Colonic mass Controlled type 2 diabetes mellitus Acute respiratory insufficiency Chronic kidney disease Chronic anemia Bilateral edema of lower extremity Fatigue Pleural effusion (HFpEF) heart failure with preserved ejection fraction Colon polyp Lightheadedness Chronic constipation Obstructive sleep apnea Gastroesophageal reflux disease Allergic rhinitis Hyperlipidemia Urinary retention Wears hearing aid Wears dentures Wears glasses Cancer History of steroid therapy Arthritis Kidney stone Easy bruising Back pain Injury of back History of hiatal hernia Former smoker BiPAP (biphasic positive airway pressure) dependence Hoarseness Chronic cough Leg cramps History of pain when walking History of stress test History of heart attack Recurrent urinary tract infection ALMEIDA (dyspnea on exertion) Chest pain Right leg swelling Patellar bursitis of right knee Asthma-COPD overlap syndrome Abdominal aortic aneurysm (AAA) Peripheral vascular disease of extremity with claudication Rectus sheath hematoma Pre-syncope Essential (primary) hypertension Restless legs syndrome Daytime hypersomnia Somatic dysfunction of pelvic region DDD (degenerative disc disease), lumbar Overweight Seasonal allergies Carotid bruit Atherosclerotic heart disease of [place] coronary artery without angina pectoris Surgical History History of appendectomy History of surgical procedure H/O vascular surgery History of surgical procedure History of transurethral resection of prostate History of endarterectomy (07/2018) History of left heart catheterization (03/2014) History of coronary artery stent placement (02/17/08) History of vascular surgery (08/2018) History of hernia repair H/O aortic aneurysm repair (11/1998) Family History Father Diabetes Cancer Prostate cancer Mother Dementia Brother Parkinsons Brother Cancer H/O vascular surgery Social History household members: spouse 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 status: 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 Smoking Status: Former smoker quit date: 08/07/08 pack-years: 2 Tobacco: How many years used: 52 Electronic Cigarette Use: not used how long ago did patient quit smokin years ago alcohol intake: current alcohol intake frequency: holidays/special occasions only details: hx of alcohol abuse substance use type: does not use caffeine: No what type of physical activity do you participate in: other details: Nustep frequency: 5-6 times per week duration: 15-30 minutes/day seatbelt use: always do you feel safe at home: Yes ROS Const Const: Negative for fatigue or weakness Eyes Eyes: Negative for change in vision ENT ENT: Negative for dizziness or balance problems Cardio Chest Pain: Yes (Occasionally chest pain. Relieved by nitroglycerin) Location: epigastric Palpitations: No Edema: Bilateral (Controlled with compression stockings) Muscle aches with walking: None Resp Respiratory: Positive for SOB with activity; Negative for SOB at rest or SOB orthopnea\SOB lying down GI GI: Negative nausea or heartburn : Negative for hematuria or frequent nighttime urination/ nocturia Musc Musc: Negative for balance problems Skin Skin: Negative non-healing lesions or rash Neuro Neuro: Negative for dizziness, lightheadedness, near syncope, syncope or weakness Endo Endo: Negative for fatigue Allergy Allergy/Immunology: Negative for rash Cardiology Exam Const Appearance: cooperative, healthy appearing, comfortable and no acute distress Nutritional Appearance: well nourished and overweight Orientation: alert, awake and oriented x3 Head Head: normal to inspection Ears: hearing grossly normal bilaterally Nose: external nose normal Face and Sinus: face symmetric Mouth: moist mucous membranes Eyes General: appearance normal, both eyes and all related structures Eyelids: eyelids normal EOM: EOM intact bilaterally Neck Neck: normal visual inspection and no JVD Carotids: normal carotid upstroke Chest Chest inspection: normal inspection of the chest, symmetric chest movement and normal respiratory effort; Negative cough Auscultation: Bilateral: Clear to Auscultation Cardio Rate: Negative regular rate Rhythm: irregularly irregular Heart sounds: S1 normal and S2 normal; Negative rub, gallop or murmur GI GI: normal to inspection Neuro General: patient alert, patient awake, patient oriented x3 and CN's II-XI intactbilaterally Skin Skin: no rashes or lesions noted Extremities Pulses: Normal: Right Posterior Tibial Pulse, Left Posterior Tibial Pulse, RightRadial Pulse and Left Radial Pulse Lower Extremity Edema: None: Bilateral Psych Psychological: normal affect Supplemental Info Supplemental Information Echo Complete 02/2025 Interpretation Summary Normal LV size. Moderate concentric left ventricular hypertrophy. The left ventricular ejection fraction is 40 %. There is mild to moderate global hypokinesis of the left ventricle. The left atrium is severely enlarged. The right atrium is mildly enlarged. Mild-Moderate (1-2+) eccentric mitral valve insufficiency. Compared to previous study, the left ventricular systolic function has worsened. Echocardiogram 01/2024: The estimated ejection fraction is 55 %. Unable to assess diastolic dysfunction. The left atrium is mildly enlarged. The right atrium is mildly enlarged. Trivial mitral valve insufficiency. Echocardiogram 05/08/2023: Interpretation Summary Left ventricular systolic function is normal. The estimated ejection fraction is 65 %. There is mild mitral annular calcification. Mild (1+) eccentric mitral valve insufficiency. Stress test 2023: Mild inferior ischemia cannot be excluded. Estimated ejection fraction is 58%. Catheterization from 03/29/2014: Conclusion: 1. Left main coronary artery with mild proximal disease. 2. Left anterior descending artery with mild to moderate diffuse disease. 3. First diagonal vessel with high-grade proximal long 90% stenosis. 4. Left circumflex artery with a diffuse disease present. 5. Right coronary artery, which is dominant, previously stented with 50% in-stent stenosis. Diffuse disease noted. 6. Preserved ejection fraction is present. Recommendations: We will be to continue aggressive medical therapy and at a later date schedule the patient for a pharmacological stress test. Carotid Duplex 09/2023: Interpretation Summary Moderate (50-69%) stenosis right extracranial internal carotid. Mild (<50%) stenosis left extracranial internal carotid. Patent and antegrade vertebrals bilaterally. Limited due to calcific shadowing, alternative imaging may be beneficial Assessment and Plan Assessment and Plan (1) Atherosclerotic heart disease of [place] coronary artery without angina pectoris: Status: Chronic Qualifiers: [place] vs. transplanted heart: [place] heart Qualified Code(s): I25.10 -Atherosclerotic heart disease of [place] coronary artery without angina pectoris Plan: Patient has a history of coronary artery disease with most recent stent placement in 2007. Stress test in June 2024 showed that mild inferior ischemia cannot be excluded and preserved ejection fraction. On account of stress test, he was started on ranolazine 500 mg p.o. twice daily. He declines increasing Ranolazine due to pain being infrequent. (2) Atrial fibrillation with controlled ventricular rate: Status: Chronic Plan: [id number] score: 6 (age +2, CHF, HTN, PAD, DM) (9.7% stroke risk) Atrial fibrillation stage: 3C, longstanding persistent 12 Lead EC03/04/2025?atrial fibrillation 68 bpm Echocardiogram: 02/15/2025?EF: 40%, severely enlarged left atrium, mildly enlarged right atrium Heart Rate Control: Coreg 6.25 mg p.o. twice daily Anticoagulation/CVA Protection: Eliquis 2.5 mg p.o. twice daily This appears stable. We will continue to monitor without changes. He will continue with Coreg and Eliquis. (3) Essential (primary) hypertension: Status: Chronic Plan: He will continue current medical therapy. (4) HLD (hyperlipidemia): Status: Chronic Qualifiers: Hyperlipidemia type: unspecified Qualified Code(s): E78.5 - Hyperlipidemia, unspecified Plan: Lipid panel on 02/15/2025 showed total cholesterol 117, HDL: 39, LDL: 66, and triglycerides: 60. He will continue Atorvastatin 40 mg PO every other day. (5) Abdominal aortic aneurysm (AAA): Status: Resolved Comment: H/O previous repair 1998 Plan: Patient has a history of abdominal aortic aneurysm with repair in 1998. He doesfollow with a [facility]. We are continuing to focus on blood pressure control. He declines further medication changes. Carotid Duplex U/S was ordered in February 2025 to ass right carotid artery disease. (6) CHF (congestive heart failure): Status: Chronic Qualifiers: Heart failure type: unspecified Heart failure chronicity: chronic Qualified Code(s): I50.9 - Heart failure, unspecified Plan: Cardiomyopathy with reduced EF: Echocardiogram 02/15/2025-EF: 40% Twelve-lead EC03/04/2025-atrial fibrillation at 68 bpm [place] [employer] Functional Class: II ACC/AHA stage: C Guideline Directed Medical Therapy: Coreg 6.25mg PO BID Lasix 80mg PO in the AM and 40mg mg in PM Jardiance 10mg PO daily We discussed GDMT by adding SGLT2 inhibitor give diabetes and chronic kidney disease. Will send SGLT2 inhibitor to assess pricing. If affordable, eill need to confirm with PCP given diabetes history and currently on insulin. He will contact us once pricing is known to decide further. Medications: New empagliflozin (Jardiance) 10 mg PO DAILY 30 tabs 11RF Plan Details Additional Comments: Thank you for allowing us to participate in the patients plan of care, if you have any questions please do not hesitate to call. Plan was reviewed with patient/family member along with red flag symptoms. Understanding was acknowledged. Questions were answered to apparent satisfaction. This note was generated using a voice recognition system and there may be incorrect words, spelling or punctuation that were not noted when reviewing the office note prior to saving. Portions of this documentation were copied and pasted from previous office visitnotes to provide a cohesive continuity of the history. The note has been reviewed, edited, and updated, as necessary. Follow Up: Keep as is (ELEVATOR TENDER) Coding Level of Care Code Off vis,est,level 4 Diagnoses Atherosclerosis of [place] coronary artery of [place] heart without angina pectoris I25.10 [place] vs. transplanted heart: [place] heart Atrial fibrillation with controlled ventricular rate I48.91 Essential (primary) hypertension I10 Hyperlipidemia, unspecified hyperlipidemia type E78.5 Hyperlipidemia type: unspecified Abdominal aortic aneurysm (AAA) I71.4 Chronic congestive heart failure, unspecified heart failure type I50.9 Heart failure type: unspecified Heart failure chronicity: chronic Coding Level of Care Code Off vis,est,level 4 Diagnoses Atherosclerosis of [place] coronary artery of [place] heart without angina pectoris I25.10 [place] vs. transplanted heart: [place] heart Atrial fibrillation with controlled ventricular rate I48.91 Essential (primary) hypertension I10 Hyperlipidemia, unspecified hyperlipidemia type E78.5 Hyperlipidemia type: unspecified Abdominal aortic aneurysm (AAA) I71.4 Chronic congestive heart failure, unspecified heart failure type I50.9 Heart failure type: unspecified Heart failure chronicity: chronic Clinical Quality Measures Falls Risk Screening/Assistive Devices Have you fallen in the past year?: Yes Cardiac Ejection fraction %: 40 05/31/25 1418 <Electronically signed by Mike Gibson NP-C> Date _ Mike Stearns NP ELECTROCARDIOGRAPH REPAIRER-C Cosigner Signature: Date (if applicable) CC: Dr. Riaz Garrison MD; Dr. Ileana Curry MD ~ [facility] Work Phone: [phone]) 771-697007-29-2025 NoteHNO ID: [id number] Author: VIPUL RICHARD, ? Service: ? Author Type: Physician Type: Progress Notes Filed: 05/04/2025 22:13 Note Text: Last saw pcp: not in [...] sneakers Vasc: DP and PT pulses are palpable bilateral. CFT is less than 5 seconds bilateral. Skin temperature is warm to cool proximal to distal bilateral. There is moderate edema or varicosities noted. Neuro: Protective sensation is decreased to the foot and toes when tested with the 5.07 SWM bilateral. Vibratory sensation is absent at the hallux IPJ bilateral. The hallux is downgoing bilateral. Derm: Nails 1-5 bl are painful, discolored-yellow, thick, crumbly, dystrophic and with subungal debris. Skin is of normal turgor, texture and hair growth is decreased bilateral. There are no hyperkeratosis, ulcerations, scars, [...] mellitus (HCC) (I73.9) PAD (peripheral artery disease) Plan: Patient was seen and evaluated. Nails 1-5 bilateral were debrided in length and thickness. Patient was instructed on the continued importance of diabetic foot care along with proper diet and keeping their blood sugar under control to prevent complications. I stressed the importance of avoiding barefoot walking, wearing good shoes and inspection of feet. Patient is to RTC in 3-4 months. [facility] of Present illness Narrative* Vipul Richard - 05/04/2025 10:10 PM EDT Last saw pcp: not in chart Subjective: [...] sneakers Vasc: DP and PT pulses are palpable bilateral. CFT is less than 5 seconds bilateral. Skin temperature is warm to cool proximal to distal bilateral. There is moderate edema or varicosities noted. Neuro: Protective sensation is decreased to the foot and toes when tested with the 5.07 SWM bilateral. Vibratory sensation is absent at the hallux IPJ bilateral. The hallux is downgoing bilateral. Derm: Nails 1-5 bl are painful, discolored-yellow, thick, crumbly, dystrophic and with subungal debris. Skin is of normal turgor, texture and hair growth is decreased bilateral. There are no hyperkeratosis, ulcerations, scars, [...] mellitus (HCC) (I73.9) PAD (peripheral artery disease) Plan: Patient was seen and evaluated. Nails 1-5 bilateral were debrided in length and thickness. Patient was instructed on the continued importance of diabetic foot care along with proper diet and keeping their blood sugar under control to prevent complications. I stressed the importance of avoiding barefoot walking, wearing good shoesand inspection of feet. Patient is to RTC in 3-4 months. Vipul Richard DPM * Lashanda Murillo RN - 05/04/2025 1:40 PM EDT Patient presents with: Left Foot - Established Patient, Follow Up, nail care Right Foot - Established Patient, Follow Up, nail care Patient presents for 9 week follow up diabetic foot/nail care. Also due for diabetic foot exam. LYNDSEY 02/25/25 documented in this encounterUniversity [facility]als [facility]07-[facility]25 Instructions* Patient Instructions* Vipul Richard - 05/04/2025 2:56 PM EDT Diabetes Foot Care Instructions When [...] it. Apply a bandage and wear a differentpair of shoes. Take Care of Your Toenails Cut toenails after bathing, when they are soft. Cut toenails straight across and smooth with a nail file. Avoid cutting into the corners of toes. Do not cut cuticles. If you have neuropathy (or decreased sensation in your feet) a instructor dramatic arts should always cut your toenails. Be Careful [...] make sure there are no foreign objects orrough areas. Avoid tight socks. Wear natural-fiber socks [...] Go to your health care provider or instructor dramatic arts to treat these conditions. documented in this encounterUniversity Hospitals [facility]07-29-2025 NoteHNO ID: [id number] Author: LASHANDA MURILLO RN Service: ? Author Type: Registered Nurse Type: Progress Notes Filed: 05/04/2025 22:13 Note Text: Patient presents with: Left Foot - Established Patient, Follow Up, nail care Right Foot - Established Patient, Follow Up, nail care Patient presents for 9 week follow up diabetic foot/nail care. Also due for diabetic foot exam. [facility]NDSEY 02/25/25[facility]06[facility] NoteHNO ID: [id number] Author: DARRYL MALLORY, DO Service: ? Author Type: Physician Type: Progress Notes Filed: 04/21/2025 07:30 Note Text: [facility] DEPARTMENT OF VASCULAR SURGERY OUTPATIENT VISIT DATE March 23, 2025 OUTPATIENT VISIT TYPE ESTABLISHED SERVICE DATE: 03/23/2025 SERVICE TIME: 11:04 AM PRIMARY CARE PHYSICIAN: Riaz Garrison MD HISTORY OF PRESENT ILLNESS: Mr. Ames is a 89 year old male who presents today for a vascular surgery follow-up visit after aortic duplex. States his biggest issue is when is falling asleep or asleep he has jerking movements of arms and legs that is becoming more distressing. 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 Hilliard. Coronary atherosclerosis of unspecified type of vessel, [place] or graft 06/13/2005 Diverticulitis of colon (without mention of hemorrhage)(562.11) 06/12/2005 Former smoker 08/21/2023 Heart attack (HCC) Hypertrophy of prostate without urinary obstruction and other lower urinary tract symptoms (LUTS) 06/12/2005 Memory disturbance 07/24/2010 Mitral valve disorders(424.0) 06/12/2005 Other and unspecified hyperlipidemia 06/13/2005 Other specified disorders of arteries and arterioles 06/12/2005 Peripheral vascular disease, unspecified 06/12/2005 Personal history of colonic polyps 06/13/2005 Tubular adenoma. 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 S/P femoral-popliteal bypass surgery 08/07/2018 Snoring Superficial femoral artery occlusion 08/21/2023 Superficial occlusion of femoral artery Symptom of leg swelling 12/12/2023 Tobacco use disorder 06/12/2005 Type II or unspecified type diabetes mellitus without mention of complication, not stated as uncontrolled 01/24/2011 Unspecified essential hypertension 06/12/2005 Venous insufficiency (chronic) (peripheral) 05/11/2015 PAST SURGICAL HISTORY Procedure Laterality Date APPENDECTOMY DONE W/OTHR MAJOR SURGERY 1998 With inguinal hernia repair [facility] INCL FLUOR GDNCE DX W/CELL WASHG [...] percut, Prox. RCA. TRANSURETHRAL ELEC-SURG PROSTATECTOM 03/07/2022 SOCIAL HISTORY Social History Tobacco Use Smoking status: Former Current packs/day: 0.00 Average packs/day: 0.5 packs/day for 50.0 years (25.0 ttl pk-yrs) Types: Cigarettes, Cigars Start date: 02/04/1958 Quit date: 02/05/2008 Years since quittin.1 Smokeless tobacco: Never Vaping Use Vaping status: Never Used Substance Use Topics Alcohol use: Yes Comment: Rare Drug use: No MEDICATIONS: furosemide (LASIX) 80 mg tablet Take 80 mg by mouth once daily. potassium chloride ER (KLOR-CON M10) 10 mEq tablet Take 20 mEq by mouth two times a day with meals. predniSONE (DELTASONE) 20 mg tablet Take 40 mg by mouth once daily. dextromethorphan-guaiFENesin (MICKEY-TUSSIN DM) 10-100 mg/5 mL oral liquid Take 5 mL by mout (more content not included)...[facility] History of Present illness Narrative* aDrryl Mallory, DO - 03/23/2025 11:04 AM EDT Images from the original note were not included. Heart [facility] V[facility] Thor[facility] DEPARTMENT OF VASCULAR SURGERY OUTPATIENT VISIT DATE March 23, 2025 OUTPATIENT VISIT TYPE ESTABLISHED SERVICE DATE: 03/23/2025 SERVICE TIME: 11:04 AM PRIMARY CARE PHYSICIAN: Riaz Garrison MD HISTORY OF PRESENT ILLNESS: Mr. Ames is a 89 year old male who presents today for a vascular surgery follow-up visit after aortic duplex. States his biggest issue is when is falling asleep or asleephe has jerking movements of arms and legs that is becoming more distressing. 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 Hilliard. Coronary atherosclerosis of unspecified type of vessel, [place] or graft 06/13/2005 Diverticulitis of colon (without mention of hemorrhage)(562.11) 06/12/2005 Former smoker 08/21/2023 Heart attack (HCC) Hypertrophy of prostate without urinary obstruction and other lower urinary tract symptoms (LUTS) 06/12/2005 Memory disturbance 07/24/2010 Mitral valve disorders(424.0) 06/12/2005 Other and unspecified hyperlipidemia 06/13/2005 Other specified disorders of arteries and arterioles 06/12/2005 Peripheral vascular disease, unspecified 06/12/2005 Personal history of colonic polyps 06/13/2005 Tubular adenoma. 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 S/P femoral-popliteal bypass surgery 08/07/2018 Snoring Superficial femoral artery occlusion 08/21/2023 Superficial occlusion of femoral artery Symptom of leg swelling 12/12/2023 Tobacco use disorder 06/12/2005 Type II or unspecified type diabetes mellitus without mention of complication, not stated as uncontrolled 01/24/2011 Unspecified essential hypertension 06/12/2005 Venous insufficiency (chronic) (peripheral) 05/11/2015 PAST SURGICAL HISTORY Procedure Laterality Date APPENDECTOMY DONE W/OTHR MAJOR SURGERY 1998 With inguinal hernia repair [facility] INCL FLUOR GDNCE DX W/CELL WASHG [...] percut, Prox. RCA. TRANSURETHRAL ELEC-SURG PROSTATECTOM 03/07/2022 SOCIAL HISTORY Social History Tobacco Use Smoking status: Former Current packs/day: 0.00 Average packs/day: 0.5 packs/day for 50.0 years (25.0 ttl pk-yrs) Types: Cigarettes, Cigars Start date: 02/04/1958 Quit date: 02/05/2008 Years since quittin.1 Smokeless tobacco: Never Vaping Use Vaping status: Never Used Substance Use Topics Alcohol use: Yes Comment: Rare Drug use: No MEDICATIONS: furosemide (LASIX) 80 mg tablet Take 80 mg by mouth once daily. potassium chloride ER (KLOR-CON M10) 10 mEq tablet Take 20 mEq by mouth two times a day with meals. predniSONE (DELTASONE) 20 mg tablet Take 40 mg by mouth once daily. dextromethorphan-guaiFENesin (MICKEY-TUSSIN DM) 10-100 mg/5 mL oral liquid Take 5 mL by mouth every 4hours as needed (cough). carvedilol (COREG) 6.25 mg tablet Take 6.25 mg by mouth two times a day with meals. Insulin Aspart (NOVOLOG) 100 unit/mL crtg Inject 10 Units subcutaneously three times a day before meals. insulin glargine-yfgn (SEMGLEE,INSULIN GLARG-YFGN,PEN) 100 unit/mL (3 mL) insulin pen Inject 22 Units subcutaneously daily at bedtime. IPRATROPIUM BROMIDE NASAL Use 2 Sprays in the nose two times a day. 21 mcg lactulose 20 gram/30 mL solution Take 20 g by mouth two times a day as needed (constpation). torsemide (DEMADEX) 20 mg tablet Take 10 mg by mouth two times a day. 1-1.5 tablets ranolazine ER (RANEXA) 500 mg 12 hr tablet Take 1 tablet by mouth every 12 hours. aspirin 81 mg cap Take 1 tablet by mouth once daily. tamsulosin (FLOMAX) 0.4 mg Take 0.4 mg by mouth once daily. finasteride (PROSCAR) 5 mg tablet Take 1 tablet by mouth every afternoon. ELIQUIS 2.5 mg tab(s) Take 1 tablet by mouth every 12 hours. budesonide-formoterol (SYMBICORT) 160-4.5 mcg/actuation inhaler inhale2 puffs BY MOUTH twice a day;administer with spacer, rinse mouth after each use] FEROSUL 325 mg (65 mg iron) tablet Take 1 tablet by mouth every other day. insulin glargine (LANTUS SOLOSTAR U-100 INSULIN) 100 unit/mL (3 mL) Inject 22 Units subcutaneously once daily. AMMONIUM LACTATE TOPICAL Apply to affected area as needed. Lotion ipratropium-albuterol (DUONEB) 0.5 mg-3 mg(2.5 mg base)/3 mL nebu 4 TIMES DAILY NEEDED hydrALAZINE (APRESOLINE) 100 mg tablet Take 100 mg by mouth two times a day. Dr. Pierre. rOPINIRole (REQUIP) 0.5 mg tablet Take 1 mg by mouth at bedtime as needed. Dr. Rivero acetaminophen (TYLENOL) 500 mg tablet Take 500 mg by mouth every 6 hours as needed. albuterol HFA (PROVENTIL HFA, VENTOLIN HFA) 90 mcg/actuation inhaler Inhale 2 Puffs as instructed. montelukast (SINGULAIR) 10 mg tablet TAKE 1 TABLET BY MOUTH DAILY AT BEDTIME. FOR NASAL ALLERGIES. pantoprazole DR (PROTONIX) 40 mg tablet TAKE 1 TABLET BY MOUTH DAILY BEFORE BREAKFAST. TAKE ON EMPTY STOMACH, 1/2 HR BEFORE MEAL. coenzyme Q10 (COENZYME Q-10) 100 mg cap capsule 100 mg once daily. blood sugar diagnostic (BLOOD GLUCOSE TEST) test strip Test blood sugar(s) 2 times daily. Dx: Type 2 DM - Uncontrolled E11.65 Insulin: No cholecalciferol, vitamin D3, (VITAMIN D3 ORAL) Take 4,000 Units by mouth once daily. loratadine 10 mg cap Take by mouth once daily. atorvastatin (LIPITOR) 40 mg tablet Take 1 tablet by mouth every other day. At bedtime for cholesterol. nitroglycerin sublingual (NITROSTAT) 0.4 mg SL tablet Dissolve 1 tablet under the tongue every 5 minutes as needed for Chest Pain. gabapentin (NEURONTIN) 100 mg capsule Take 1 capsule by mouth once daily. (Patient not taking: Reported on 02/25/2025) docusate sodium (COLACE) 100 mg capsule Take 100 mg by mouth once daily as needed for constipation. ketoconazole (NIZORAL) 2 % cream Apply a small amount of cream to the affected area twice a day (Patient not taking: Reported on 12/22/2024) insulin lispro (HUMALOG KWIKPEN INSULIN) 100 unit/mL Inject 10 Units subcutaneously three times a day before meals. (Patient not taking: Reported on 12/22/2024) senna-docusate (SENNA-S) 8.6-50 mg per tablet Take 1 tablet by mouth two times a day. SEMGLEE,INSULIN GLARG-YFGN,PEN 100 unit/mL (3 mL) insulin pen Inject 22 Units subcutaneously daily at bedtime. (Patient not taking: Reported on 02/09/2025) UNIFINE PENTIPS 31 gauge x 1/4 ndle once daily. (Patient not taking: Reported on 12/22/2024) meclizine (ANTIVERT) 25 mg tab meclizine hydrochloride 25 mg oral tablet (4 sources) Antiemetic Start: 09-13-2023 (Patient not taking: Reported on 11/25/2023) spironolactone (ALDACTONE) 25 mg tablet Take 25 mg by mouth as needed. (Patient not taking: Reported on 02/27/2024) furosemide (LASIX) 40 mg tablet Take 80 mg by mouth daily at 6 pm. ascorbic acid, vitamin C, (VITAMIN C) 500 mg tablet Take 500 mg by mouth once daily. (Patient not taking: Reported on 02/25/2025) ipratropium bromide (ATROVENT) 42 mcg (0.06 %) nasal spray Use 2 Sprays in the nose four times daily. (Patient not taking: Reported on 12/22/2024) triamcinolone acetonide (NASACORT AQ) 55 mcg nasal inhaler Use 2 Sprays in the nose once daily. (Patient not taking: Reported on 02/27/2024) ALLERGIES: ALLERGIES Allergen Reactions Levaquin [Levofloxa* Hives Felodipine Rash Pletal [Cilostazol] Itching Sulfa (Sulfonamide * Itching PHYSICAL EXAM: BP 138/74 (BP Site: Right Arm, BP Position: Sitting, BP Cuff Size: Regular Adult) Pulse 65 ZcL750% General: Alert and oriented Integumentary: Normal color, no rash, no lesions. Abdomen: non-distended Extremities: trace edema Neurological: Normal cognition and motor skills. Vascular: non-palpable distal pulses Diagnostic tests reviewed for today's visit: Most recent labs Most recent imaging PVRs- moderate disease bilaterally Aortic Duplex Compared to prior study of 02/05/2023, New finding of left profunda artery 50-99% stenosis. 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 Aortobiiliac graft and limbs are patent. ARTERIES/GRAFT Aortobiiliac graft : patent . Right limb : patent . Right external iliac artery distal: 50-99% stenosis . Right common femoral artery : patent . Right profunda artery proximal: patent . Right superficial femoral artery origin: occluded . Left limb : patent . Left external iliac artery mid: 50-99% stenosis . Left common femoral artery : patent . Left profunda artery origin: 50-99% stenosis . Left superficial femoral artery origin: occluded . IMPRESSION: Mr. mAes is a 89 year old male with peripheral arterial disease . PLAN and RECOMMENDATIONS: Referral sleep medicine for restless legs/sleep apnea Follow up 3 months or sooner with any concerns Continue current medications and walking as tolerated SIGNATURE: Darryl Mallory DO PATIENT NAME: Desiree Ames DATE: March 23, 2025 TIME: 11:04 AM documented in this encounterUniversity [facility]als [facility]06-03-2025 Progress note Author Natanael Christensen [facility] Note Date/Time March 09, 2025 9:43a m [facility] Medical Records Department [address] [place] [address] Progress Note - Infect Disease 03/09/25 0942 MR#: [id number] Acct: [id number] Name: DESIREE AMES Rep #:[id number] : 1935 89 From: Natanael temple MD PCP: Dr. Riaz Garrison MD Status:ADM IN Location: [place] [address] Physical Exam Narrative Out of icu, off O2, breathing better, less sputum, no fever Const alert and no apparent distress General Appearance: cooperative Resp Resp Narrative: diminished, improved Cardio regular rate and regular rhythm GI soft to palpation, non-tender and non-distended Skin no rashes or lesions noted ID ID: Route of nutrition/ use of supplements: [] Nutritional Intake: [] IV Site: [] Childers Catheter: [] Assessment & Plan Assessment/Plan (1) COPD exacerbation: (2) Pneumonia: PLAN: Sputum with MSSA. Recent sputum cx with citro, raoultella, and enterobacter. Feeling better. Will narrow to cefazolin, ok for home with 4 days keflex 500mg bid. Will follow 03/09/2543 <Electronically signed by Natanael Christensen MD> Cosigner Signature (if applicable): CC: ~ Signed [facility] Work Phone: 1(987) 873-317806-03-2025 Progress note Author Luiz Painter [facility] Note Date/Time March 09, 2025 8:47a [facility] Medical Records Department [address] [place] [address] Progress Note - Welding Manager 03/09/25 0838 MR#: [id number] Acct: [id number] Name: DESIREE AMES Rep #:[id number] : 1935 89 From: Luiz Painter DO PCP: Dr. Riaz Garrison MD Status:ADM IN Location: [place] [address] Assessment & Plan Assessment/Plan (1) COPD exacerbation: PLAN: Plan RECOMMENDATIONS: 1. Antibiotic treatment course per infectious diseases recommendations. 2. Continue bronchodilator therapy as ordered. 3. Continue aggressive bronchopulmonary hygiene. 4. Encourage incentive spirometer use and mobilize patient as tolerated. 5. Perform walking oximetry study prior to consideration for discharge home. 6. The patient has been scheduled for a pulmonary office follow-up visit on March 23 at 2:15 PM. IMPRESSIONS: 1. COPD with exacerbation Appears secondary to MSSA pneumonia, which is responded appropriately to antimicrobial therapy, under the discretion of infectious diseases. In the interim, the patient will be continued on bronchodilator therapy. Given his lack of wheezing on exam and the fact that he is maintaining saturations on roomair, I do not see an overt indication for corticosteroids. Continue to encourage incentive spirometer use and mobilize patient as tolerated. Perform walking oximetry study prior to consideration for discharge home. Follow-up in the pulmonary medicine clinic after discharge, as noted above. 2. Obstructive sleep apnea Continue nocturnal PAP therapy per home regimen. 3. Chronic heart failure with reduced ejection fraction/chronic kidney disease/coronary artery disease/atrial fibrillation on Eliquis Complicates care, management, recovery and prognosis. Continue home medicationsand supportive care as noted above. This note was generated with [employer] software. It may contain incorrectwords, spelling, and punctuation that were not noted in checking the note beforesigning. Subjective Subjective The patient was seen and examined at the bedside this morning. Events from the last 24 hours have been reviewed. The patient is currently afebrile, hemodynamically stable and maintaining appropriate oxygen saturations on room air. I was asked to reevaluate this patient, per request of the family. The patient is followed in our office on a chronic basis due to a history of COPD and obstructive sleep apnea. The patient was previously under the care of Dr. Rivero, until his departure. The patient is on nocturnal BiPAP therapy along with a triple therapy maintenance medication for his COPD. He is currently on treatment for MSSA pneumonia. Objective Data Objective Data The patient's most recent lab work, culture data and imaging studies have all been personally reviewed. Vital Signs: Vital Signs Temp Pulse Resp BP Pulse Ox O2 Del Method 97.5 F L 71 16 167/69 H 97 Room Air 03/09/25 07:35 03/09/25 07:35 03/09/25 07:35 03/09/25 07:35 03/09/25 07:35 03/09/25 07:38 Oxygen Delivery Method Room Air Weight: 191 lb 4.792 oz Body Mass Index (BMI) 29.0 Intake & Output: Intake and Output for Last 24 Hours 03/07/25 03/08/25 03/09/25 23:59 23:59 23:59 Intake Total 1485 / 1485 1470 / 1470 150 / 150 Output Total 1800 / 2700 2225 / 2225 525 / 525 Balance -315 / -1215 -755 / -755 -375 / -375 Lab / Micro Data Attestation: I reviewed the patient's lab results. 03/09/25 05:07 03/09/25 05:07 Labs: Laboratory Results - last 24 hr 03/08/25 11:28: POC Glucose 183 H 03/08/25 17:17: POC Glucose 180 H 03/09/25 05:07: WBC 7.7, RBC 3.33 L, Hgb 10.6 L, Hct 31.8 L, MCV 95.5 H, MCH 31.8, MCHC 33.3, RDW Std Deviation 53.9 H, RDW Coeff of Justin 16.1 H, Plt Count 281, MPV 10.0, Immature Gran % (Auto) 1.000 H, Neut % (Auto) 74.7 H, Lymph % (Auto) 15.9 L, [place] % (Auto) 6.6, Eos % (Auto) 1.4, Baso % (Auto) 0.4, Absolute Neuts (auto) 5.7, Absolute Lymphs (auto) 1.22, Nucleated RBC % 0, Sodium 137, Potassium 3.4, Chloride 100, Carbon Dioxide 23.9, Anion Gap 14, BUN 45 H, Creatinine 2.21 H, Estim Creat Clear Calc 25.23 L, Est GFR (MDRD) Non-Af 28 L, BUN/Creatinine Ratio 20.2 H, Glucose 149 H, Calcium 9.1 03/09/25 07:31: POC Glucose 146 H Micro: Microbiology 03/04/25 20:10 Sputum, Expectorated/Coughed Gram Stain - Final 03/04/25 20:10 Sputum, Expectorated/Coughed Respiratory Culture - Final Staphylococcus aureus 03/04/25 15:40 Blood Culture (Wb) - Right Forearm Blood Culture - Preliminary No growth in 48 hours. 03/04/25 13:46 Blood Culture (Wb) - Right Forearm Blood Culture - Preliminary No growth in 48 hours. 03/05/25 19:15 Mucosa - Nose SARS-CoV-2, Influenza & RSV (PCR) - Final Physical Exam Const alert, oriented x3 and no apparent distress General Appearance: cooperative HEENT normocephalic and head/scalp atraumatic Eyes PERRL, EOMs intact bilaterally and conjunctivae normal Neck supple General: trachea midline Chest inspection of chest normal Resp normal respiratory effort Auscultation: diminished lung sounds; Negative for rales, rhonchi or wheezes Cardio regular rate and regular rhythm GI normal to inspection, nondistended, normoactive bowel sounds Extremity no clubbing, cyanosis or edema Skin no rashes or lesions noted Neuro CN's II-XII intact bilaterally, moves all extremities and no focal motor deficits Psych cooperative and affect normal Charges/Coding Visit Charges Inpatient E&M: 55924 Subs Hosp L2 03/09/25 0847 <Electronically signed by Luiz Painter DO> Cosigner Signature (if applicable): CC: ~ Signed [facility] Work Phone: 1(831) 905-702906-02-2025 Progress note Author [facility] Note Date/Time March 08, 2025 4:40p m [facility] Medical Records Department [address] [place] [address] Progress Note 03/08/25 1517 MR#: [id number] Acct: [id number] Name: DESIREE AMES Rep #:[id number] : 1935 89 From: Tracey Orantes MD PCP: Dr. Riaz Garrison MD Status:ADM IN Location: [place] [address] Subjective Subjective Patient seen and examined. His was by his bedside. He denied any cough, chest pain, shortness of breath, palpitations, nausea, vomiting or any other symptoms. REview of systems is otherwise negative. Objective Data Objective Data Vital Signs: Vital Signs Temp Pulse Resp BP Pulse Ox O2 Del Method 97.6 F L 66 17 126/70 H 98 Room Air 03/08/25 13:38 03/08/25 13:38 03/08/25 11:51 03/08/25 13:38 03/08/25 13:57 03/08/25 13:57 Oxygen Delivery Method Room Air Weight: 191 lb 4.792 oz Body Mass Index (BMI) 29.0 Intake & Output: Intake and Output for Last 24 Hours 03/06/25 03/07/25 03/08/25 23:59 23:59 23:59 Intake Total 1545 / 1545 1485 / 1485 100 / 100 Output Total 2600 / 2600 1800 / 2700 1500 / 1500 Balance -1055 / -1055 -315 / -1215 -1400 / -1400 Lab / Micro Data 03/08/25 04:20 03/08/25 04:20 Labs: Laboratory Results - last 24 hr 03/07/25 17:14: POC Glucose 102 03/07/25 17:23: Sodium 138, Potassium 3.9, Chloride 100, Carbon Dioxide 25.0, Anion Gap 13, BUN 47 H, Creatinine 2.15 H, Estim Creat Clear Calc 25.93 L, Est GFR (MDRD) Non-Af 29 L, BUN/Creatinine Ratio 22.0 H, Glucose 103 H, Calcium 9.4 03/07/25 23:17: POC Glucose 180 H 03/08/25 04:20: WBC 9.5, RBC 3.61 L, Hgb 11.0 L, Hct 34.2 L, MCV 94.7 H, MCH 30.5, MCHC 32.2 D, RDW Std Deviation 54.0 H, RDW Coeff of Justin 16.2 H, Plt [id number], MPV 10.2, Immature Gran % (Auto) 1.100 H, Neut % (Auto) 78.7 H, Lymph % (Auto) 12.2 L, [place] % (Auto) 6.2, Eos % (Auto) 1.5, Baso % (Auto) 0.3, Absolute Neuts (auto) 7.4, Absolute Lymphs (auto) 1.15, Nucleated RBC % 0, Sodium 137, Potassium 3.6, Chloride 99, Carbon Dioxide 22.9, Anion Gap 15, BUN 44 H, Creatinine 2.19 H, Estim Creat Clear Calc 25.46 L, Est GFR (MDRD) Non-Af 28 L, BUN/Creatinine Ratio 20.0, Glucose 140 H, Calcium 9.4 03/08/25 11:28: POC Glucose 183 H Micro: Microbiology 03/04/25 20:10 Sputum, Expectorated/Coughed Gram Stain - Final 03/04/25 20:10 Sputum, Expectorated/Coughed Respiratory Culture - Final Staphylococcus aureus 03/04/25 15:40 Blood Culture (Wb) - Right Forearm Blood Culture - Preliminary No growth in 48 hours. 03/04/25 13:46 Blood Culture (Wb) - Right Forearm Blood Culture - Preliminary No growth in 48 hours. 03/05/25 19:15 Mucosa - Nose SARS-CoV-2, Influenza & RSV (PCR) - Final Physical Exam Const alert, oriented x3 and no apparent distress Constitutional Narrative: frail General Appearance: cooperative HEENT normocephalic, head/scalp atraumatic, moist oral mucous membranes and oropharynxnormal Eyes EOMs intact bilaterally Neck no lymphadenopathy and supple Lymph Lymphatic: no lymphedema noted Resp Resp Narrative: mildly diminished breath sounds bibasally, no wheezes or crackles. On room air. Cardio regular rate, regular rhythm, S1 normal heart sound, S2 normal heart sound and no murmurs GI normal to inspection, nondistended, normoactive bowel sounds, soft to palpation,non-tender and non-distended Extremity normal capillary refill, no clubbing, cyanosis or edema and no calf tenderness General Extremity: no tenderness to palpation of joints or extremities Skin General Skin Exam: no breakdown Neuro no focal motor deficits Motor Exam: general weakness Psych thought process normal, cooperative and affect normal Appearance: appropriate Assessment & Plan Assessment/Plan (1) Acute on chronic systolic heart failure due to valvular disease: (2) Pneumonia: PLAN: Plan #Hypoxia due to acute on chronic heart failure, COPD exacerbation and pneumonia * on room air * on IV zosyn * 2D echo from 02/15/2025 showed moderate concentric left ventricular hypertrophy with left ventricular EF of 40% and bouts of moderate hypokinesis of the left ventricle with left atrium severely enlarged and right atrium mildly enlarged * Chest x-ray with this admission showed findings suggestive of chronic interstitial fibrosis and did not show any evidence of pneumonia. * Previous sputum cultures grew Citrobacter, Enterobacter and Raoultella sensitive to zosyn. These cultures were from 02/19/2025. * cardiology consulted due to decreased EF. Per cardiology, to get repeat 2D echo * family requesting for pulmonology consult o/a of CXR findings of chronic interstitial fibrosis. * titrate oxygen to maintain sats >90% * sputum cultures growing MSSA now * ID on board o/a of sputum culture findings. Continue IV vancomycin and zosyn. * #Acute exacerbation of heart failure with reduced EF: as above. #CKD III: Cr is 2.19 today. Baseline Cr is ~ 1.9-2. #CAD: has a history of stent in RCA. 2 echo as above. stable #History of A-fib: On Eliquis and carvedilol #Type 2 diabetes mellitus: Lantus. Insulin sliding. Accu-Cheks ACHS. #Restless leg syndrome: Ropinirole DVT prophylaxis: on eliquis. Charges/Coding Visit Charges Inpatient E&M: 00259 Subs Hosp L2 03/08/25 1640 <Electronically signed by Tracey Orantes MD> Tracey Orantes MD Cosigner Signature (if applicable): CC: ~ Signed [facility] Work Phone: 1(430) 364-651606-02-2025 Consult note Author Natanael Christensen [facility] Note Date/Time March 08, 2025 1:28p m [facility] Medical Records Department [address] [place] [address] Consultation - Infectious Dx 03/08/25 1325 MR#: [id number] Acct: [id number] Name: DESIREE AMES Rep #:[id number] : 1935 89 From: Natanael temple MD PCP: Dr. Riaz Garrison MD Status:ADM IN Location: [place] [address] Assessment & Plan Assessment/Plan (1) COPD exacerbation: (2) Pneumonia: PLAN: Sputum with MSSA. Recent sputum cx with citro, raoultella, and enterobacter. Feeling better. On vanc/zosyn. He requests to be seen by his pulm Dr. Painter. Will follow, thank you HPI Consult Data Date of Consult: 03/08/25 HPI Narrative Reason for Consultation: pneumonia HPI Narrative: DESIREE AMES, is a 89 M with COPD, presents with 1-2 weeks worsening cough withpurulent sputum and dyspnea. Recent admit with parainfluenza, sputum was sent, not given abx. Sx worsened while at home, admitted now on vanc/zosyn and feeling better this AM. Full ROS performed and neg except as noted above. [facility] Medical History Chronic systolic (congestive) heart failure Unsteady gait when walking Muscle twitching Neuropathy Leukocytosis Acute bronchitis MARIXA treated with BiPAP Obesity (BMI 30.0-34.9) Elevated troponin Diastolic CHF, acute on chronic Atrial fibrillation/flutter Right carotid bruit Stable angina Kidney disease GERD (gastroesophageal reflux disease) Irregular heart beat Myocardial infarct Complicated urinary tract infection Urinary tract infection Colonic mass Controlled type 2 diabetes mellitus Acute respiratory insufficiency Chronic kidney disease Chronic anemia Bilateral edema of lower extremity Urinary retention Fatigue Pleural effusion (HFpEF) heart failure with preserved ejection fraction Pneumonia Colon polyp Lightheadedness Chronic constipation Anemia Obstructive sleep apnea Coronary artery disease Gastroesophageal reflux disease Allergic rhinitis Hyperlipidemia Urinary retention Wears hearing aid Wears dentures Wears glasses Cancer History of steroid therapy Ambulates with cane Walker as ambulation aid Arthritis Kidney stone Easy bruising Back pain Injury of back History of hiatal hernia Former smoker BiPAP (biphasic positive airway pressure) dependence Asthma Hoarseness Chronic cough Leg cramps History of pain when walking History of stress test History of heart attack History of irregular heartbeat Recurrent urinary tract infection ALMEIDA (dyspnea on exertion) Chest pain Right leg swelling Patellar bursitis of right knee Asthma-COPD overlap syndrome Abdominal aortic aneurysm (AAA) Peripheral vascular disease of extremity with claudication Rectus sheath hematoma Pre-syncope Essential (primary) hypertension Restless legs syndrome Daytime hypersomnia Somatic dysfunction of pelvic region DDD (degenerative disc disease), lumbar Overweight Seasonal allergies Carotid bruit Atherosclerotic heart disease of [place] coronary artery without angina pectoris PVD (peripheral vascular disease) COPD (chronic obstructive pulmonary disease) Home Medications ?Medication ?Instructions ?Recorded ?Last Taken ?Type handicap placcard #1 ea 09/28/19 Unknown Rx coenzyme Q10 100 mg capsule (Co 100 mg PO DAILY supple ment 05/03/20 01/29/25 History Q-10) cholecalciferol (vitamin D3) 100 100 mcg PO DAILY supp lement 11/03/20 01/29/25 History mcg (4,000 unit) tablet spacer #1 ea 01/12/21 Unknown Rx lancets #180 ea 07/18/23 Unknown Rx montelukast 10 mg tablet 10 mg PO QHS Respiratory #90 tabs 05/04/24 02/18/25 Rx atorvastatin 40 mg tablet 40 mg PO QODAY cholesterol # 45 tabs 05/13/24 01/27/25 Rx tamsulosin 0.4 mg capsule 0.4 mg PO DAILY prostate 01/22/25 History finasteride 5 mg tablet 5 mg PO DAILY prostate 06/2801/28/25 History insulin aspart U-100 100 unit/mL 10 unit (0.1 mL) subc ut TID 10/07/24 01/29/25 Rx subcutaneous cartridge (Novolog diabetes #15 mL PenFill U-100 Insulin aspart) handicap placard #1 ea 10/12/24 Unknown Rx budesonide-formoterol HFA 160 2 puff inhalation BID co pd #3 ea 10/16/24 01/28/25 Rx mcg-4.5 mcg/actuation aerosol inhaler (Symbicort) pantoprazole 40 mg tablet,delayed 40 mg PO DAILY reflu x #90 tabs 11/30/24 01/29/25 Rx release apixaban 2.5 mg tablet (Eliquis) 2.5 mg PO BID atrial fibrillation 12/14/24 02/19/25 Rx #180 tabs ipratropium bromide 21 mcg (0.03 2 spray intranasal BI D PRN allergy 12/14/24 Unknown History %) nasal spray symptoms blood sugar diagnostic (OneTouch #180 ea 12/21/24 Unkn own Rx Ultra Test strips) albuterol sulfate 90 mcg/actuation 2 inh inhalation Q4 H PRN shortness 01/04/25 01/28/25 Rx aerosol inhaler (Ventolin HFA) of breath or wheezing # 18 grams hydralazine 100 mg tablet 100 mg PO BID hypertension # 180 01/26/25 02/19/25 Rx tabs ranolazine 500 mg tablet,extended 500 mg PO BID chest pain #180 tabs 01/26/25 02/19/25 Rx release,12 hr ropinirole 1 mg tablet 3 mg (3 x 1 mg) PO QHS restl ess 01/26/25 02/18/25 Rx leg #90 tabs ipratropium 0.5 mg-albuterol 3 mg 3 ml inhalation TID SOB &/OR 01/29/25 01/28/25 History (2.5 mg base)/3 mL nebulization WHEEZING soln loratadine 10 mg tablet (Allergy 10 mg PO DAILY allerg ies 01/29/25 01/28/25 History Relief (loratadine)) 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,rug designer,cont #1 ea 02/01/25 Unknown Rx (FreeStyle [place] 3 [place]) 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 sensor (FreeStyle #3 ea 02/10/25 Unknown Rx Dwight 3 Plus Sensor device) insulin glargine 100 unit/mL (3 22 unit subcut DAILY d iabetes 02/15/25 Unknown History mL) subcutaneous pen (Lantus Solostar U-100 Insulin) nitroglycerin 0.4 mg sublingual 0.4 mg sublingual Q5-1 5M PRN chest 02/15/25 Unknown Rx tablet (Nitrostat) pain #25 tabs pen needle, diabetic 31 gauge x #100 ea 02/15/25 Unkno wn Rx / (Unifine Pentips) aspirin 81 mg tablet,delayed 81 mg PO BREAKFAST heart health #0 02/18/25 Unknown Rx release tabs Held on 03/04/25. Instructions: Pt TOOK MYSELF OFF OF IT ferrous sulfate 325 mg (65 mg 325 mg PO DAILY low iron #30 tabs 02/18/25 Unknown Rx iron) tablet (FeroSul) lactulose 10 gram/15 mL oral 20 g (30 mL) PO DAILY con stipation 02/18/25 Unknown Rx solution #946 mL dextromethorphan-guaifenesin 10 5 ml PO Q4H PRN PRN Co ugh #0 mL 02/22/25 Unknown Rx mg-100 mg/5 mL oral syrup furosemide 40 mg tablet 40 mg PO UD #90 tabs 5 Unknown Rx potassium chloride 10 mEq 20 meq (2 x 10 mEq) PO BIDCM 03/02/25 Unknown Rx tablet,extended release(part/cryst) supplement #60 tab s carvedilol 3.125 mg tablet 6.25 mg PO BID Heart Unknown History Allergy/AdvReac Type Severity Reaction Status Date / Time cilostazol (From Pletal) Allergy Unknown Verified 03/04/25 12:51 felodipine Allergy Hives Verified 03/04/25 12:51 levofloxacin Allergy Hives Verified 03/04/25 12:51 Sulfa (Sulfonamide Allergy Unknown Verified 03/04/25 12:51 Antibiotics) isosorbide AdvReac Intermediate low BP Verified 03/04/25 12:51 Family History Father Diabetes Cancer Prostate cancer Mother Dementia Brother Parkinsons Brother Cancer H/O vascular surgery Surgical History History of appendectomy History of surgical procedure H/O vascular surgery History of surgical procedure History of transurethral resection of prostate History of endarterectomy (07/2018) History of left heart catheterization (03/2014) History of coronary artery stent placement (02/17/08) History of vascular surgery (08/2018) History of hernia repair H/O aortic aneurysm repair (11/1998) Social History household members: spouse 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 status: retired current occupation: Responsible [employer] Smoking Status: Former smoker quit date: 08/07/08 pack-years: 2 Tobacco: How many years used: 52 Electronic Cigarette Use: not used how long ago did patient quit smokin years ago alcohol intake: current alcohol intake frequency: holidays/special occasions only details: hx of alcohol abuse substance use type: does not use caffeine: No what type of physical activity do you participate in: other details: Nustep frequency: 5-6 times per week duration: 15-30 minutes/day seatbelt use: always do you feel safe at home: Yes Physical Exam Const alert and no apparent distress General Appearance: cooperative HEENT normocephalic and head/scalp atraumatic Eyes PERRL and EOMs intact bilaterally Neck supple and No nodes Resp Auscultation: diminished lung sounds Cardio regular rate and regular rhythm GI soft to palpation, non-tender and non-distended Extremity General Extremity: Negative for edema Skin no rashes or lesions noted Neuro CN's II-XII intact bilaterally Lab / Micro Data Attestation: I reviewed the patient's lab results. 03/08/25 04:20 03/08/25 04:20 Labs: Laboratory Results - last 24 hr 03/07/25 17:14: POC Glucose 102 03/07/25 17:23: Sodium 138, Potassium 3.9, Chloride 100, Carbon Dioxide 25.0, Anion Gap 13, BUN 47 H, Creatinine 2.15 H, Estim Creat Clear Calc 25.93 L, Est GFR (MDRD) Non-Af 29 L, BUN/Creatinine Ratio 22.0 H, Glucose 103 H, Calcium 9.4 03/07/25 23:17: POC Glucose 180 H 03/08/25 04:20: WBC 9.5, RBC 3.61 L, Hgb 11.0 L, Hct 34.2 L, MCV 94.7 H, MCH 30.5, MCHC 32.2 D, RDW Std Deviation 54.0 H, RDW Coeff of Justin 16.2 H, Plt [id number], MPV 10.2, Immature Gran % (Auto) 1.100 H, Neut % (Auto) 78.7 H, Lymph % (Auto) 12.2 L, [place] % (Auto) 6.2, Eos % (Auto) 1.5, Baso % (Auto) 0.3, Absolute Neuts (auto) 7.4, Absolute Lymphs (auto) 1.15, Nucleated RBC % 0, Sodium 137, Potassium 3.6, Chloride 99, Carbon Dioxide 22.9, Anion Gap 15, BUN 44 H, Creatinine 2.19 H, Estim Creat Clear Calc 25.46 L, Est GFR (MDRD) Non-Af 28 L, BUN/Creatinine Ratio 20.0, Glucose 140 H, Calcium 9.4 03/08/25 11:28: POC Glucose 183 H Micro: Microbiology 03/04/25 20:10 Sputum, Expectorated/Coughed Gram Stain - Final 03/04/25 20:10 Sputum, Expectorated/Coughed Respiratory Culture - Final Staphylococcus aureus 03/08/25 1328 <Electronically signed by Natanael Christensen MD> Cosigner Signature (if applicable): CC: Dr. Riaz Garrison MD~ Signed [facility] Work Phone: 1(841) 582-288106-02-2025 Consult note Author Cornel Del Rio [facility] Note Date/Time March 08, 2025 5:44a m [facility] Medical Records Department [address] [place] [address] Pharmacokinetic/Renal -Consult 03/06/25 1509 MR#: [id number] Acct: [id number] Name: DESIREE AMES Rep #:[id number] : 1935 89 From: Cornel Del Rio PCP: Dr. Riaz Garrison MD Status:ADM IN Y Location: [place] [id number] Consult Antibiotic Management Pharmacy has been consulted to manage selected antibiotic: Vancomycin Type of Intervention Type of Consult: New start Suspected Infection Suspected Infection: Pneumonia Prior Doses of Antibiotics Prior Doses of Antibiotics Received/Current Regimen: Vancomycin 1250 mg IV x 1 given 03/06/25 @ 1453 Labs Labs: Sodium 135 mmol/L (133-145) 03/06/25 04:22 Potassium 3.8 mmol/L (3.3-5.1) 03/06/25 04:22 Chloride 97 mmol/L (98-108) L 03/06/25 04:22 Carbon Dioxide 25.6 mmol/L (21.0-32.0) 03/06/25 04:22 Anion Gap 13 (5-15) 03/06/25 04:22 BUN 61 mg/dL (4-19) H 03/06/25 04:22 Creatinine 2.53 mg/dL (0.70-1.20) H 03/06/25 04:22 Est GFR (MDRD) Non-Af 24 (>60) L 03/06/25 04:22 BUN/Creatinine Ratio 24.1 RATIO (10-20) H 03/06/25 04:22 Glucose 194 mg/dL (70-99) H 03/06/25 04:22 Microbiology Microbiology: Microbiology 03/04/25 20:10 Sputum, Expectorated/Coughed Gram Stain - Final 03/04/25 20:10 Sputum, Expectorated/Coughed Respiratory Culture - Preliminary Staphylococcus aureus 03/05/25 19:15 Mucosa - Nose SARS-CoV-2, Influenza & RSV (PCR) - Final Dosing Weight Weight used for dosin kg Estimated Creatinine Clearance Estimated Creatinine Clearance: ~ 22 Goal Trough Goal Trough: 15-20 mcg/mL Pharmacy Plan for Drug Dosing Pharmacy Plan for Drug Dosing: Vancomycin 1250 mg IV x 1 followed by 750 mg IV Q24H Pharmacy Service will continue to monitor and adjust dosing as required. Follow-Up Labs Follow-Up Labs: Trough: Vancomycin Date/Time Labs Ordered Labs to be done on [date and time ordered]: 03/08/25 @ 1430 03/06/25 1512 <Electronically signed by Cornel temple> Date _ Cornel Hinojosawagner 03/08/25 0544 <Electronically signed by Luiz Jiang> Cosigner Signature (if applicable): Date Luiz Painter DO CC: ~ Signed [facility] Work Phone: 1(884) 159-952906-01-2025 Progress note Author Fernandez Santana [facility] Note Date/Time March 07, 2025 5:34p [facility] Medical Records Department [address] [place] [address] Progress Note - Hospitalist 03/07/25 1340 MR#: [id number] Acct: [id number] Name: DESIREE AMES Rep #:[id number] : 1935 89 From: Fernandez Valentine PCP: Dr. Riaz Garrison MD Status:ADM IN Location: [place] [address] Reason for Visit Reason for Visit: Diagnoses Anemia, unspecified (03/04/25) Endocarditis, valve unspecified (03/04/25) Acute on chronic systolic (congestive) heart failure (03/04/25) Chronic obstructive pulmonary disease with (acute) exacerbation (03/04/25) Acute kidney failure, unspecified (03/04/25) Chronic kidney disease, unspecified (03/04/25) Acute cough (03/04/25) Other forms of dyspnea (03/04/25) Hypoxemia (03/04/25) Localized edema (03/04/25) Personal history of other endocrine, nutritional and metabolic disease (03/04/25) Personal history of other diseases of the respiratory system (03/04/25) Objective Data Objective Data Vital Signs: Vital Signs Temp Pulse Resp BP Pulse Ox O2 Del Method 97.5 F L 72 16 130/68 H 95 Room Air 03/07/25 09:44 03/07/25 13:33 03/07/25 13:33 03/07/25 09:44 03/07/25 09:44 03/07/25 09:44 Oxygen Delivery Method Room Air Weight: 191 lb 4.8 oz Body Mass Index (BMI) 29.0 Intake & Output: Intake and Output for Last 24 Hours 03/05/25 03/06/25 03/07/25 23:59 23:59 23:59 Intake Total 1300 / 1300 1545 / 1545 170 / 170 Output Total 550 / 550 2600 / 2600 550 / 550 Balance 750 / 750 -1055 / -1055 -380 / -380 Lab / Micro Data 03/06/25 04:22 03/06/25 04:22 Labs: Laboratory Results - last 24 hr 03/06/25 17:04: POC Glucose 107 H 03/06/25 21:02: POC Glucose 173 H 03/07/25 08:27: POC Glucose 141 H 03/07/25 11:43: POC Glucose 188 H Micro: Microbiology 03/04/25 20:10 Sputum, Expectorated/Coughed Gram Stain - Final 03/04/25 20:10 Sputum, Expectorated/Coughed Respiratory Culture - Preliminary Staphylococcus aureus 03/04/25 15:40 Blood Culture (Wb) - Right Forearm Blood Culture - Preliminary No growth in 48 hours. 03/04/25 13:46 Blood Culture (Wb) - Right Forearm Blood Culture - Preliminary No growth in 48 hours. 03/05/25 19:15 Mucosa - Nose SARS-CoV-2, Influenza & RSV (PCR) - Final Physical Exam Narrative Seen and examined. Shortness of breath and leg swelling is improving. Patient still weak and fatigued. No dyspnea at rest. Physical exam General: Alert, Oriented x3, Cooperative HEENT: Atraumatic, PERRLA, EOMI, Normocephalic. Oral: No Gingival or Mucosal Lesions/ Ulcerations Neck: Supple, No JVD, Negative Carotid Bruits Chest wall/Lungs: Air entry diminished in bilateral lung bases, left more than right. No crepitation Cardiovascular: Regular rate and rhythm, Normal S1,S2, systolic murmur present. Abdomen: Bowel Sounds Present, Soft, Non Tender, Non-Distended : No dysuria. No renal angle tenderness. No suprapubic tenderness. Extremities: Mild 1+ edema, Capillary Refill Less than 3 Seconds Skin: No rashes, No breakdown Musculoskeletal: No Tenderness to Palpation of Joints or Extremities Neurological: Cranial nerves II-XII grossly intact, DTR 2+/4. No acute focal neurological deficit. Psych/Mental Status: Flat affect Assessment & Plan Assessment/Plan (1) Hypoxemia: (2) COPD exacerbation: (3) Acute cough: PLAN: Plan 89-year-old gentleman admitted with shortness of breath, mild leg swelling and chest x-ray and CT findings suggestive of pneumonia, pulmonary venous congestion. #Hypoxia due to COPD exacerbation and possible bibasilar pneumonia and acute on chronic exacerbation of HFrEF * admitted with a complaint of shortness of breath. He was recently admitted and treated for acute decompensated herat failure. * he is currently on room air. * Chest CT shows bibasilar consolidation left more than right which might reflect early stage of pneumonia/atelectasis or possible aspiration. Scattered tree-in-bud and reticular densities suggestive of atypical pneumonia/postinflammatory changes/underlying chronic lung disease. Extensive pulmonary emphysema. On IV zosyn. Previous sputum cultures grew Citrobactere, Enterobacter and Raoultella sensitive to zosyn. These cultures were from 02/19/2025. * Chest x-ray with this admission showed findings suggestive of chronic interstitial fibrosis and did not show any evidence of pneumonia. * breathing treatment with bronchodilators * titrate oxygen to maintain sats >90% * Initial troponin was 61. Troponins 63, 59 and 59. proBNP 4021. During his most recent admission his troponins peaked at 271. * 2D echo done on 02/15/2025 showed moderate concentric left ventricular hypertrophy with left ventricular EF of 40% and bouts of moderate hypokinesis of the left ventricle with left atrium severely enlarged and right atrium mildly enlarged. 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 03/07: Sputum culture shows 2+ Staph aureus, 3+ GPC, 2+ GNR. MSSA. Continue vancomycin and Zosyn. ID consult tomorrow request. #Acute exacerbation of heart failure with reduced ejection fraction * 2D echo as above. Has known EF of 40%. Will hold all Lasix and start diuresis with IV Lasix. * Consult cardiology as stated above on account of the echo findings. * fluid restriction to 1500cc daily * pro BNP is elevated at >4000 03/07 discussed with the applique sewer. Requested echo to compare with the previous 1. Continue same medication #CKD III: Cr is 2.5, at her baseline. 03/06: BUN/creatinine 61/2.53 on baseline #CAD: on SL nitroglycerin prn. 2D echo as above. Consult cardiology. He has a history of CAD s/p stent in hal RCA. #COPD: not in exacerbation. Breathing treatment with bronchodilators. #Afib: on carvedilol and eliquis #Type 2 diabetes mellitus: on lantus. ISS. Accuchecks ACHS 03/06: Patient had hypoglycemia yesterday evening, 59, 78 but yesterday night andmorning was good. said that patient used to get Lantus at night therefore changed to the suppertime and dose decreased. #History of restless leg syndrome: on ropinirole. Patient and his complain of tremor in whole body mainly hand and restlessness/restless leg syndrome for last 3 to 4 months. Patient also has gait instability. 03/07: Advised follow-up with the neurologist DVT prophylaxis: on eliquis Microbiology Past 72 Hours 03/04/25 20:10 Sputum, Expectorated/Coughed Gram Stain - Final 03/04/25 20:10 Sputum, Expectorated/Coughed Respiratory Culture - Preliminary Staphylococcus aureus 03/04/25 15:40 Blood Culture (Wb) - Right Forearm Blood Culture - Preliminary No growth in 48 hours. 03/04/25 13:46 Blood Culture (Wb) - Right Forearm Blood Culture - Preliminary No growth in 48 hours. 03/05/25 19:15 Mucosa - Nose SARS-CoV-2, Influenza & RSV (PCR) - Final Laboratory Results 03/06/25 17:04: POC Glucose 107 H 03/06/25 21:02: POC Glucose 173 H 03/07/25 08:27: POC Glucose 141 H 03/07/25 11:43: POC Glucose 188 H Charges/Coding Visit Charges Inpatient E&M: 87624 Subs Hosp L3 03/07/25 7813 <Electronically signed by Fernandez Santana MD> Cosigner Signature (if applicable): CC: ~ Signed ADDENDUM by Dr. Fernandez Santana MD on 03/07/25 at 1968 Addendum Nurse called me to see the skin rash over the back. On bilateral buttock there is whitish scaly lesion with irregular pattern of redness patches with a scale and peripheral activity. Seems chronic fungal infection. Miconazole cream ordered. Follow with PCP.. May need outpatient dermatology referral by PCP 03/07/25 5014<Electronically signed by Fernandez Santana MD> Cosigner Signature (if applicable): cc: ~* Signed [facility] Work Phone: 1(589) 126-748106-01-2025 Progress note Author Romana Dudley [facility] Note Date/Time March 07, 2025 12:45 pm [facility] Medical Records Department [address] [place] [address] Progress Note - Cardiology 03/07/25 1241 MR#: [id number] Acct: [id number] Name: DESIREE AMES Rep #:[id number] : 1935 89 From: Romana Dudley MD PCP: Dr. Riaz Garrison MD Status:ADM IN Location: [place] [address] Subjective Subjective Seen and evaluated at bedside along with the nursing staff, at bedside Sitting out in a chair comfortable no symptoms reported. Objective Data Vital Signs: Vital Signs Temp Pulse Resp BP Pulse Ox O2 Del Method 97.5 F L 65 16 130/68 H 95 Room Air 03/07/25 09:44 03/07/25 09:48 03/07/25 09:44 03/07/25 09:44 03/07/25 09:44 03/07/25 09:44 Oxygen Delivery Method Room Air Weight: 191 lb 4.8 oz Body Mass Index (BMI) 29.0 Intake & Output: Intake and Output for Last 24 Hours 03/05/25 03/06/25 03/07/25 23:59 23:59 23:59 Intake Total 1300 / 1300 1545 / 1545 170 / 170 Output Total 550 / 550 2600 / 2600 550 / 550 Balance 750 / 750 -1055 / -1055 -380 / -380 Lab / Micro Data 03/06/25 04:22 03/06/25 04:22 Labs: Laboratory Results - last 24 hr 03/06/25 17:04: POC Glucose 107 H 03/06/25 21:02: POC Glucose 173 H 03/07/25 08:27: POC Glucose 141 H 03/07/25 11:43: POC Glucose 188 H Micro: Microbiology 03/04/25 20:10 Sputum, Expectorated/Coughed Gram Stain - Final 03/04/25 20:10 Sputum, Expectorated/Coughed Respiratory Culture - Preliminary Staphylococcus aureus 03/04/25 15:40 Blood Culture (Wb) - Right Forearm Blood Culture - Preliminary No growth in 48 hours. 03/04/25 13:46 Blood Culture (Wb) - Right Forearm Blood Culture - Preliminary No growth in 48 hours. Cardiology Labs/Tests Rhythm: EKG: ECHO: Stress Test: Cardiac Cath: PCI: CT Surgery: Holter monitor: EPS: PPM: CXR: Chest CT Scan: Physical Exam Cardio Cardio Narrative: Review of the cardiac telemetry showed A-fib with controlled rate Episodes of frequent PVCs noted Cardiac exam S1-S2 is, irregular No systolic or diastolic murmur. Chest exam mildly diminished air entry bilateral with bilateral inspiratory rales Examination lower extremity had +1?+2 lower extremity edema. Assessment & Plan Assessment/Plan (1) Acute on chronic systolic heart failure due to valvular disease: (2) Hypoxemia: (3) Exertional dyspnea: (4) COPD exacerbation: (5) Acute kidney injury: (6) History of COPD: (7) Chronic kidney disease: (8) History of diabetes mellitus: (9) Peripheral edema: PLAN: 89-year-old patient seen and evaluated today at bedside along with the nursing staff at bedside Patient had history of CAD with angioplasty and stenting of RCA. As well had a history of abdominal aortic aneurysm, hypertension hyperlipidemia, COPD with acute exacerbation and MARIXA and CKD. He had several previous hospitalization recently [place] where he had an echocardiogram showed reduced LV systolic function from previous With ejection fraction around 40% with mild to moderate eccentric MR. As per his symptom was mainly cough with shortness of breath and has bilateral lower extremity edema Cardiac care plan recommendations; Patient shortness of breath and cough improved on the current treatment As well his lower extremity edema improved on a diuretic. I did review all his current medication I requested echocardiogram to compare with the previous one on this admission Patient will follow-up with his primary applique sewer Dr. Pierre for continuation of cardiac care. Recommend to monitor electrolytes and renal function. And adjust medication based on his lab results. There is no plan for any invasive cardiac evaluation. 03/07/25 1960 <Electronically signed by Romana Dudley MD> Cosigner Signature (if applicable): CC: ~ Signed [facility] Work Phone: [phone] 179-958705-31-2025 Consult note Author Romana Dudley [facility] Note Date/Time March 06, 2025 3:45p m [facility] Medical Records Department [address] [place] [address] Consultation - Cardiology 03/06/25 1519 MR#: [id number] Acct: [id number] Name: DESIREE AMES Rep #:[id number] : 1935 89 From: Romana Dudley MD PCP: Dr. Riaz Garrison MD Status:ADM IN Location: [place] [address] Assessment & Plan Assessment/Plan (1) COPD exacerbation: (2) Anemia: (3) Peripheral edema: (4) Chronic kidney disease: (5) Acute on chronic systolic heart failure due to valvular disease: PLAN: 89-year-old patient has a history of coronary artery disease with angioplasty and stenting of the RCA. As well patient had a history of abdominal aortic aneurysm, hypertension, hyperlipidemia History of COPD with obstructive sleep apnea and CKD Several previous hospitalization recently discharged from the hospital in February 15. Now presenting complaining of symptoms of cough with shortness of breath As per his symptoms was worse with coughing. Does not have any active chest pain. He does complain of very atypical right upper chest discomfort with no specific radiation. Cardiac care plan recommendations; Today I reviewed his current medication as well as his cardiac catheterization technician Noted patient had underlying atrial fibrillation with controlled ventricular rate He had frequent episode of PVC with nonsustained V. tach. Review of her recent echocardiogram showed EF in the range of 40% with mild to moderate eccentric MR. No pericardial effusion. Patient currently on medical treatment as well he is on diuretic Lasix 40 mg twice daily. From cardiac standpoint we will continue to monitor and follow-up clinically. As well we will continue to monitor electrolytes magnesium potassium and renal function. Once stable patient to follow-up with the primary applique sewer Dr. Pierre for continuation of cardiac care. HPI Consult Data Date of Consult: 03/06/25 HPI Narrative Reason for Consultation: Acute on chronic systolic heart failure/CAD/A-fib HPI Narrative: DESIREE AMES, is a 89 M who presents [facility] Medical History Right carotid bruit Stable angina Kidney disease GERD (gastroesophageal reflux disease) Irregular heart beat Myocardial infarct Complicated urinary tract infection Urinary tract infection Colonic mass Controlled type 2 diabetes mellitus Acute respiratory insufficiency Chronic kidney disease Chronic anemia Bilateral edema of lower extremity Urinary retention Fatigue Pleural effusion (HFpEF) heart failure with preserved ejection fraction Pneumonia Colon polyp Lightheadedness Chronic constipation Anemia Obstructive sleep apnea Coronary artery disease Gastroesophageal reflux disease Allergic rhinitis Hyperlipidemia Urinary retention Wears hearing aid Wears dentures Wears glasses Cancer History of steroid therapy Ambulates with cane Walker as ambulation aid Arthritis Kidney stone Easy bruising Back pain Injury of back History of hiatal hernia Former smoker BiPAP (biphasic positive airway pressure) dependence Asthma Hoarseness Chronic cough Leg cramps History of pain when walking History of stress test History of heart attack History of irregular heartbeat Recurrent urinary tract infection ALMEIDA (dyspnea on exertion) Chest pain Right leg swelling Patellar bursitis of right knee Asthma-COPD overlap syndrome Abdominal aortic aneurysm (AAA) Peripheral vascular disease of extremity with claudication Rectus sheath hematoma Pre-syncope Essential (primary) hypertension Restless legs syndrome Daytime hypersomnia Somatic dysfunction of pelvic region DDD (degenerative disc disease), lumbar Overweight Seasonal allergies Carotid bruit Atherosclerotic heart disease of [place] coronary artery without angina pectoris PVD (peripheral vascular disease) COPD (chronic obstructive pulmonary disease) Home Medications ?Medication ?Instructions ?Recorded ?Last Taken ?Type handicap placcard #1 ea 09/28/19 Unknown Rx coenzyme Q10 100 mg capsule (Co 100 mg PO DAILY supple ment 05/03/20 01/29/25 History Q-10) cholecalciferol (vitamin D3) 100 100 mcg PO DAILY supp lement 11/03/20 01/29/25 History mcg (4,000 unit) tablet spacer #1 ea 01/12/21 Unknown Rx lancets #180 ea 07/18/23 Unknown Rx montelukast 10 mg tablet 10 mg PO QHS Respiratory #90 tabs 05/04/24 02/18/25 Rx atorvastatin 40 mg tablet 40 mg PO QODAY cholesterol # 45 tabs 05/13/24 01/27/25 Rx tamsulosin 0.4 mg capsule 0.4 mg PO DAILY prostate 01/22/25 History finasteride 5 mg tablet 5 mg PO DAILY prostate 06/2801/28/25 History insulin aspart U-100 100 unit/mL 10 unit (0.1 mL) subc ut TID 10/07/24 01/29/25 Rx subcutaneous cartridge (Novolog diabetes #15 mL PenFill U-100 Insulin aspart) handicap placard #1 ea 10/12/24 Unknown Rx budesonide-formoterol HFA 160 2 puff inhalation BID co pd #3 ea 10/16/24 01/28/25 Rx mcg-4.5 mcg/actuation aerosol inhaler (Symbicort) pantoprazole 40 mg tablet,delayed 40 mg PO DAILY reflu x #90 tabs 11/30/24 01/29/25 Rx release apixaban 2.5 mg tablet (Eliquis) 2.5 mg PO BID atrial fibrillation 12/14/24 02/19/25 Rx #180 tabs ipratropium bromide 21 mcg (0.03 2 spray intranasal BI D PRN allergy 12/14/24 Unknown History %) nasal spray symptoms blood sugar diagnostic (OneTouch #180 ea 12/21/24 Unkn own Rx Ultra Test strips) albuterol sulfate 90 mcg/actuation 2 inh inhalation Q4 H PRN shortness 01/04/25 01/28/25 Rx aerosol inhaler (Ventolin HFA) of breath or wheezing # 18 grams hydralazine 100 mg tablet 100 mg PO BID hypertension # 180 01/26/25 02/19/25 Rx tabs ranolazine 500 mg tablet,extended 500 mg PO BID chest pain #180 tabs 01/26/25 02/19/25 Rx release,12 hr ropinirole 1 mg tablet 3 mg (3 x 1 mg) PO QHS restl ess 01/26/25 02/18/25 Rx leg #90 tabs ipratropium 0.5 mg-albuterol 3 mg 3 ml inhalation TID SOB &/OR 01/29/25 01/28/25 History (2.5 mg base)/3 mL nebulization WHEEZING soln loratadine 10 mg tablet (Allergy 10 mg PO DAILY allerg ies 01/29/25 01/28/25 History Relief (loratadine)) 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,rug designer,cont #1 ea 02/01/25 Unknown Rx (FreeStyle [place] 3 [place]) 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 sensor (FreeStyle #3 ea 02/10/25 Unknown Rx Dwight 3 Plus Sensor device) insulin glargine 100 unit/mL (3 22 unit subcut DAILY d iabetes 02/15/25 Unknown History mL) subcutaneous pen (Lantus Solostar U-100 Insulin) nitroglycerin 0.4 mg sublingual 0.4 mg sublingual Q5-1 5M PRN chest 02/15/25 Unknown Rx tablet (Nitrostat) pain #25 tabs pen needle, diabetic 31 gauge x #100 ea 02/15/25 Unkno wn Rx 1/ (Unifine Pentips) aspirin 81 mg tablet,delayed 81 mg PO BREAKFAST heart health #0 02/18/25 Unknown Rx release tabs Held on 03/04/25. Instructions: Pt TOOK MYSELF OFF OF IT ferrous sulfate 325 mg (65 mg 325 mg PO DAILY low iron #30 tabs 02/18/25 Unknown Rx iron) tablet (FeroSul) lactulose 10 gram/15 mL oral 20 g (30 mL) PO DAILY con stipation 02/18/25 Unknown Rx solution #946 mL dextromethorphan-guaifenesin 10 5 ml PO Q4H PRN PRN Co ugh #0 mL 02/22/25 Unknown Rx mg-100 mg/5 mL oral syrup furosemide 40 mg tablet 40 mg PO UD #90 tabs 5 Unknown Rx potassium chloride 10 mEq 20 meq (2 x 10 mEq) PO BIDCM 03/02/25 Unknown Rx tablet,extended release(part/cryst) supplement #60 tab s carvedilol 3.125 mg tablet 6.25 mg PO BID Heart Unknown History Allergy/AdvReac Type Severity Reaction Status Date / Time cilostazol (From Pletal) Allergy Unknown Verified 03/04/25 12:51 felodipine Allergy Hives Verified 03/04/25 12:51 levofloxacin Allergy Hives Verified 03/04/25 12:51 Sulfa (Sulfonamide Allergy Unknown Verified 03/04/25 12:51 Antibiotics) isosorbide AdvReac Intermediate low BP Verified 03/04/25 12:51 Family History Father Diabetes Cancer Prostate cancer Mother Dementia Brother Parkinsons Brother Cancer H/O vascular surgery Surgical History History of appendectomy History of surgical procedure H/O vascular surgery History of surgical procedure History of transurethral resection of prostate History of endarterectomy (07/2018) History of left heart catheterization (03/2014) History of coronary artery stent placement (02/17/08) History of vascular surgery (08/2018) History of hernia repair H/O aortic aneurysm repair (11/1998) Social History household members: spouse 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 status: retired current occupation: Responsible [employer] Smoking Status: Former smoker quit date: 08/07/08 pack-years: 2 Tobacco: How many years used: 52 Electronic Cigarette Use: not used how long ago did patient quit smokin years ago alcohol intake: current alcohol intake frequency: holidays/special occasions only details: hx of alcohol abuse substance use type: does not use caffeine: No what type of physical activity do you participate in: other details: Nustep frequency: 5-6 times per week duration: 15-30 minutes/day seatbelt use: always do you feel safe at home: Yes Physical Exam Cardio Cardio Narrative: Seen and evaluated and examined at bedside at bedside as well as nursing staff Comfortable lying in bed Alert and orientated x 3 Cardiac exam S1-S2 is irregular Chest exam mildly diminished air entry bilateral with bilateral inspiratory rales Examination lower extremity had +2 lower extremity edema. Risk Stratification Risk Stratification Applicable: No Objective Data Vital Signs: Vital Signs Temp Pulse Resp BP Pulse Ox O2 Del Method 97.6 F L 68 16 122/74 H 96 Room Air 03/06/25 15:03 03/06/25 15:03 03/06/25 15:03 03/06/25 15:03 03/06/25 15:03 03/06/25 15:03 Oxygen Delivery Method Room Air Weight: 191 lb 4.8 oz Body Mass Index (BMI) 29.0 Intake & Output: Intake and Output for Last 24 Hours 03/04/25 03/05/25 03/06/25 23:59 23:59 23:59 Intake Total 100 / 400 1300 / 1300 100 / 100 Output Total 550 / 550 450 / 450 Balance 100 / 400 750 / 750 -350 / -350 Lab / Micro Data 03/06/25 04:22 03/06/25 04:22 Labs: Laboratory Results - last 24 hr 03/05/25 15:47: Troponin T High Sens 63 H* 03/05/25 17:36: POC Glucose 135 H 03/05/25 17:59: Troponin T Hi Sens 2 Hr 59 H* 03/05/25 19:58: POC Glucose 59 L 03/05/25 20:32: Troponin T Hi Sens 4Hr 59 H* 03/05/25 21:13: POC Glucose 78 03/05/25 23:01: POC Glucose 174 H 03/06/25 04:22: WBC 7.5, RBC 2.86 L, Hgb 10.7 L, Hct 27.9 L, MCV 97.6 H D, MCH 37.4 H, MCHC 38.4 H D, RDW Std Deviation 55.1 H, RDW Coeff of Justin 17.5 H, Plt Count 310, MPV 10.1, Immature Gran % (Auto) 0.800, Neut % (Auto) 78.7 H, Lymph %(Auto) 11.9 L, [place] % (Auto) 7.0, Eos % (Auto) 1.3, Baso % (Auto) 0.3, Absolute Neuts (auto) 5.9, Absolute Lymphs (auto) 0.89, Nucleated RBC % 0, Sodium 135, Potassium 3.8, Chloride 97 L, Carbon Dioxide 25.6, Anion Gap 13, BUN 61 H, Creatinine 2.53 H, Estim Creat Clear Calc 22.04 L, Est GFR (MDRD) Non-Af 24 L, BUN/Creatinine Ratio 24.1 H, Glucose 194 H, Calcium 9.1, Phosphorus 3.8, Magnesium 2.1, Procalcitonin 0.29 H 03/06/25 08:15: POC Glucose 154 H 03/06/25 11:47: POC Glucose 195 H Micro: Microbiology 03/04/25 20:10 Sputum, Expectorated/Coughed Gram Stain - Final 03/04/25 20:10 Sputum, Expectorated/Coughed Respiratory Culture - Preliminary Staphylococcus aureus 03/05/25 19:15 Mucosa - Nose SARS-CoV-2, Influenza & RSV (PCR) - Final Cardiology Labs/Tests 03/06/25 04:22: WBC 7.5, RBC 2.86 L, Hgb 10.7 L, Hct 27.9 L, MCV 97.6 H D, MCH 37.4 H, MCHC 38.4 H D, Plt Count 310, MPV 10.1, Immature Gran % (Auto) 0.800, Neut % (Auto) 78.7 H, Lymph % (Auto) 11.9 L, [place] % (Auto) 7.0, Eos % (Auto) 1.3,Baso % (Auto) 0.3, Absolute Neuts (auto) 5.9, Nucleated RBC % 0, Sodium 135, Potassium 3.8, Chloride 97 L, Carbon Dioxide 25.6, Anion Gap 13, BUN 61 H, Creatinine 2.53 H, Est GFR (MDRD) Non-Af 24 L, BUN/Creatinine Ratio 24.1 H, Glucose 194 H, Calcium 9.1, Phosphorus 3.8, Magnesium 2.1 Rhythm: EKG: ECHO: Stress Test: Cardiac Cath: PCI: CT Surgery: Holter monitor: EPS: PPM: CXR: Chest CT Scan: Radiography Diagnostic Testing: Radiology Impression Chest CT 03/05/25 18:08 IMPRESSION: Bibasilar consolidations, left more than right, which may reflect aspiration, early stages of pneumonia, and/or atelectasis. Scattered tree-in-bud and reticular densities may reflect atypical pneumonia/postinflammatory changes with likely component of fibrosis/underlying chronic lung disease. Extensive pulmonary emphysema. Mild cardiomegaly and trace pericardial effusion. Mediastinal lymphadenopathy. Reading Location: [facility] 03/06/25 622 <Electronically signed by Romana Dudley MD> Cosigner Signature (if applicable): CC: Dr. Riaz Garrison MD~ Signed [facility] Work Phone: 1(176) 477-857105-31-2025 Progress note Author Fernandez Santana [facility] Note Date/Time March 06, 2025 3:38p m [facility] Medical Records Department [address] [place] [address] Progress Note - Hospitalist 03/06/25 1055 MR#: [id number] Acct: [id number] Name: EDSIREE AMES Rep #:[id number] : 1935 89 From: Fernandez Valentine PCP: Dr. Riaz Garrison MD Status:ADM IN Location: [place] [address] Reason for Visit Reason for Visit: Diagnoses Chronic obstructive pulmonary disease with (acute) exacerbation (03/04/25) Acute cough (03/04/25) Other forms of dyspnea (03/04/25) Hypoxemia (03/04/25) Objective Data Objective Data Vital Signs: Vital Signs Temp Pulse Resp BP Pulse Ox O2 Del Method 97.4 F L 85 16 124/80 H 96 Room Air 03/06/25 08:45 03/06/25 08:45 03/06/25 08:45 03/06/25 08:45 03/06/25 08:45 03/06/25 08:45 Oxygen Delivery Method Room Air Weight: 191 lb 4.8 oz Body Mass Index (BMI) 29.0 Intake & Output: Intake and Output for Last 24 Hours 03/04/25 03/05/25 03/06/25 23:59 23:59 23:59 Intake Total 100 / 400 1300 / 1300 100 / 100 Output Total 550 / 550 450 / 450 Balance 100 / 400 750 / 750 -350 / -350 Lab / Micro Data 03/06/25 04:22 03/06/25 04:22 Labs: Laboratory Results - last 24 hr 03/05/25 12:05: POC Glucose 223 H 03/05/25 15:47: Troponin T High Sens 63 H* 03/05/25 17:36: POC Glucose 135 H 03/05/25 17:59: Troponin T Hi Sens 2 Hr 59 H* 03/05/25 19:58: POC Glucose 59 L 03/05/25 20:32: Troponin T Hi Sens 4Hr 59 H* 03/05/25 21:13: POC Glucose 78 03/05/25 23:01: POC Glucose 174 H 03/06/25 04:22: WBC 7.5, RBC 2.86 L, Hgb 10.7 L, Hct 27.9 L, MCV 97.6 H D, MCH 37.4 H, MCHC 38.4 H D, RDW Std Deviation 55.1 H, RDW Coeff of Justin 17.5 H, Plt Count 310, MPV 10.1, Immature Gran % (Auto) 0.800, Neut % (Auto) 78.7 H, Lymph %(Auto) 11.9 L, [place] % (Auto) 7.0, Eos % (Auto) 1.3, Baso % (Auto) 0.3, Absolute Neuts (auto) 5.9, Absolute Lymphs (auto) 0.89, Nucleated RBC % 0, Sodium 135, Potassium 3.8, Chloride 97 L, Carbon Dioxide 25.6, Anion Gap 13, BUN 61 H, Creatinine 2.53 H, Estim Creat Clear Calc 22.04 L, Est GFR (MDRD) Non-Af 24 L, BUN/Creatinine Ratio 24.1 H, Glucose 194 H, Calcium 9.1, Phosphorus 3.8, Magnesium 2.1, Procalcitonin 0.29 H Micro: Microbiology 03/05/25 19:15 Mucosa - Nose SARS-CoV-2, Influenza & RSV (PCR) - Final 03/04/25 20:10 Sputum, Expectorated/Coughed Gram Stain - Final Radiography Diagnostic Testing: Radiology Impression Chest CT 03/05/25 18:08 IMPRESSION: Bibasilar consolidations, left more than right, which may reflect aspiration, early stages of pneumonia, and/or atelectasis. Scattered tree-in-bud and reticular densities may reflect atypical pneumonia/postinflammatory changes with likely component of fibrosis/underlying chronic lung disease. Extensive pulmonary emphysema. Mild cardiomegaly and trace pericardial effusion. Mediastinal lymphadenopathy. Reading Location: [facility] Physical Exam Narrative Seen and examined. Patient and his complain of tremor in whole body mainly hand and restlessness/restless leg syndrome for last 3 to 4 months. Patient also has gait instability. History of COPD admitted for pneumonia and shortness of breath. He also has heart failure with reduced EF and elevated troponin. Physical exam General: Alert, Oriented x3, Cooperative HEENT: Atraumatic, PERRLA, EOMI, Normocephalic. Oral: No Gingival or Mucosal Lesions/ Ulcerations Neck: Supple, No JVD, Negative Carotid Bruits Chest wall/Lungs: Air entry diminished in bilateral lung bases, left more than right. Mild coarse crepitation Cardiovascular: Regular rate and rhythm, Normal S1,S2, sytolic murmur present. Abdomen: Bowel Sounds Present, Soft, Non Tender, Non-Distended : No dysuria. No renal angle tenderness. No suprapubic tenderness. Extremities: Mild 2+ edema, Capillary Refill Less than 3 Seconds Skin: No rashes, No breakdown Musculoskeletal: No Tenderness to Palpation of Joints or Extremities Neurological: Cranial nerves II-XII grossly intact, DTR 2+/4. No acute focal neurological deficit. Psych/Mental Status: Flat affect Assessment & Plan Assessment/Plan (1) Hypoxemia: (2) COPD exacerbation: (3) Acute cough: PLAN: Plan 89-year-old gentleman admitted with shortness of breath, mild leg swelling and chest x-ray and CT findings suggestive of pneumonia, pulmonary venous congestion. #Hypoxia due to COPD exacerbation and possible bibasilar pneumonia and acute on chronic exacerbation of HFrEF * admitted with a complaint of shortness of breath. He was recently admitted and treated for acute decompensated herat failure. * he is currently on room air. * Chest CT shows bibasilar consolidation left more than right which might reflect early stage of pneumonia/atelectasis or possible aspiration. Scattered tree-in-bud and reticular densities suggestive of atypical pneumonia/postinflammatory changes/underlying chronic lung disease. Extensive pulmonary emphysema. On IV zosyn. Previous sputum cultures grew Citrobactere, Enterobacter and Raoultella sensitive to zosyn. These cultures were from 02/19/2025. * Chest x-ray with this admission showed findings suggestive of chronic interstitial fibrosis and did not show any evidence of pneumonia. * breathing treatment with bronchodilators * titrate oxygen to maintain sats >90% * Initial troponin was 61. Troponins 63, 59 and 59. proBNP 4021. During his most recent admission his troponins peaked at 271. * 2D echo done on 02/15/2025 showed moderate concentric left ventricular hypertrophy with left ventricular EF of 40% and bouts of moderate hypokinesis of the left ventricle with left atrium severely enlarged and right atrium mildly enlarged. 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 #Acute exacerbation of heart failure with reduced ejection fraction * 2D echo as above. Has known EF of 40%. Will hold all Lasix and start diuresis with IV Lasix. * Consult cardiology as stated above on account of the echo findings. * fluid restriction to 1500cc daily * pro BNP is elevated at >4000 #CKD III: Cr is 2.5, at her baseline. 03/06: BUN/creatinine 61/2.53 on baseline #CAD: on SL nitroglycerin prn. 2D echo as above. Consult cardiology. He has a history of CAD s/p stent in hal RCA. #COPD: not in exacerbation. Breathing treatment with bronchodilators. #Afib: on carvedilol and eliquis #Type 2 diabetes mellitus: on lantus. ISS. Accuchecks ACHS 03/06: Patient had hypoglycemia yesterday evening, 59, 78 but yesterday night andmorning was good. said that patient used to get Lantus at night therefore changed to the suppertime and dose decreased. #History of restless leg syndrome: on ropinirole. DVT prophylaxis: on eliquis at the concern of tremors, possible differential include essential tremor/action tremor/Parkinson disease. Does not look like resting tremor. Patient does not have asymmetric muscle rigidity. Disposition: transfer to PCU Charges/Coding Visit Charges Inpatient E&M: 89919 Subs Hosp L2 03/06/25 1538 <Electronically signed by Fernandez Santana MD> Cosigner Signature (if applicable): CC: ~ Signed ADDENDUM by Dr. Fernandez Santana MD on 03/06/25 at 1538 Addendum Total time of the visit including total time spent in counseling or coordinationof care, (more than 50% of the total time, spent in obtaining medical information from nurses and other ancillary care providers ,explaining to the patient about labs, imaging, diagnosis and management of active complex medical conditions), discussion with the applique sewer and update from patient's regarding multiple active medical problems, review of labs and imaging is 45 minutes. 03/06/25 1538<Electronically signed by Fernandez Santana MD> Cosigner Signature (if applicable): cc: ~* Signed [facility] Work Phone: 1([phone]) 397-463505-31-2025 Progress note Author Guillermo Briones [facility] Note Date/Time March 06, 2025 1:58p m [facility] Medical Records Department [address] [place] [address] [place] [address] Progress Note - Welding Manager 03/06/25 8130 MR#: [id number] Acct: [id number] Name: DESIREE AMES Rep #:[id number] : 1935 89 From: Guillermo Briones MD PCP: Dr. Riaz Garrison MD Status:ADM IN Location: [place] [address] Objective Data Objective Data Vital Signs: Vital Signs Last response 3 Temperature 36.3 C L 03/06/25 08:45 Temperature Source Oral 03/06/25 08:45 Pulse Rate 85 03/06/25 08:45 Pulse Strength Normal (2+) 03/06/25 10:00 Respiratory Rate 16 03/06/25 08:45 Respiratory Effort Normal, Non-Labored 03/06/25 08:30 Respiratory Depth Normal 03/06/25 08:30 Respiratory Pattern Normal 03/06/25 08:30 Blood Pressure 124/80 H 03/06/25 08:45 Blood Pressure Mean 94 03/06/25 08:45 Blood Pressure Source Monitor 03/06/25 08:45 Blood Pressure Position Sitting 03/06/25 08:45 Blood Pressure Location Right Arm 03/06/25 08:45 Pulse Ox 96 03/06/25 08:45 Oxygen Delivery Method Room Air 03/06/25 08:45 I&O: I&O Last 24 Hours 3 03/05/25 03/06/25 03/06/25 23:59 11:59 23:59 Intake Total 500 / 1300 100 / 100 Output Total 550 / 550 450 / 450 Balance -50 / 750 -350 / -350 I&O: Total Stay 3 03/04/25 12:46 thru 03/06/25 10:33 Intake Total 1500 Output Total 1000 Balance 500 Current Meds Ordered / Administered: Current meds ordered / Administered 3 Generic Name Dose Route Start Last Admin Trade Name Freq PRN Reason Stop Dose Admin Acetaminophen 650 mg 03/05/25 22:46 03/06/25 12:06 Acetaminophen 325 Mg Tablet PO 650 mg Q6H PRN PRN Administration Pain 1-10 or Fever Albuterol Sulfate 2.5 mg 03/04/25 18:34 Albuterol 2.5 Mg/3 Ml Vial.Neb. INHALATION Q4H PRN shortness of breath or wheezing Albuterol/Ipratropium 3 ml 03/04/25 22:00 03/06/25 06:48 Ipratropium/Albuterol Sulfate 3 Ml Ampul.Neb INHALATION 3 ml TID AMMY Administration Apixaban 2.5 mg 03/04/25 22:00 03/06/25 08:21 Apixaban 2.5 Mg Tablet (Wch) PO 2.5 mg BID AMMY Administration Atorvastatin Calcium 40 mg 03/05/25 10:00 03/05/25 09:22 Atorvastatin Calcium 40 Mg Tablet PO 40 mg Q48 AMMY Administration Budesonide 0.5 mg 03/04/25 18:50 03/06/25 06:46 Budesonide Respules 0.5 Mg/2 Ml Ampul.Neb. INHALATION 0.5 mg Q12H.RT AMMY Administration Calamine/Phenol 1 applic 03/05/25 10:00 03/06/25 08:20 Menthol/Lanolin/Calamine/Znox 113 Gm Tube TOPICAL 1 applic BID AMMY Administration Protocol Carvedilol 6.25 mg 03/05/25 17:00 03/06/25 08:20 Carvedilol 6.25 Mg Tablet PO 6.25 mg BIDCM AMMY Administration Protocol Finasteride 5 mg 03/04/25 22:00 03/06/25 08:21 Finasteride 5 Mg Tablet PO 5 mg DAILY AMMY Administration Furosemide 80 mg 03/05/25 10:00 03/05/25 09:22 Furosemide 80 Mg Tablet PO 80 mg DAILY AMMY Administration Protocol Furosemide 40 mg 03/05/25 16:00 03/05/25 16:11 Furosemide 40 Mg Tablet PO 40 mg DAILY@1600 AMMY Administration Protocol Furosemide 40 mg 03/05/25 18:00 03/06/25 08:31 Furosemide 40 Mg/4 Ml Vial IV 40 mg BIDLX AMMY Administration Protocol Guaifenesin 5 ml 03/04/25 17:28 03/04/25 22:25 Guaifenesin Dm 10 Ml Udc PO 5 ml Q4H PRN PRN Administration Cough Hydralazine HCl 100 mg 03/04/25 22:00 03/06/25 08:20 Hydralazine 50 Mg Tablet PO 100 mg BID AMMY Administration Piperacillin Sod/Tazobactam 50 mls @ 12.5 mls/hr 03/04/25 22:00 03/06/25 10:33 Sod 3.375 gm/ Sodium Chloride IV 03/11/25 22:01 Infused Q8 AMMY Infusion Sodium Chloride 250 mls @ 15 mls/hr 03/04/25 18:41 03/05/25 15:10 IV Infused .[id number] PRN Infusion Saline Flush Sodium Chloride 250 mls @ 15 mls/hr 03/04/25 18:41 IV .[id number] PRN Additional IVPB Infusion Insulin Glargine 22 unit 03/05/25 10:00 03/05/25 09:21 Insulin Glargine-Yfgn 100 Unit/Ml Pen SC 22 unit DAILY AMMY Administration Insulin Human Lispro 10 unit 03/05/25 08:00 03/06/25 12:11 Insulin Lispro 100 Unit/Ml Insuln.Pen SC 10 units TIDCM AMMY Administration Ipratropium [place] 1 spray 03/04/25 18:41 Ipratropium [place] 0.06% Nasal [place] NASAL BID PRN allergy symptoms Loratadine 10 mg 03/05/25 10:00 03/05/25 09:21 Loratadine 10 Mg Tablet PO 10 mg Q48 AMMY Administration Montelukast Sodium 10 mg 03/04/25 22:00 03/05/25 21:41 Montelukast 10 Mg Tablet PO 10 mg QHS AMMY Administration Nitroglycerin 0.4 mg 03/04/25 18:45 Nitroglycerin (Inpatient Use) 0.4 Mg Tab.Subl SL Q5M PRN CARDIAC/CHEST PAIN Pantoprazole Sodium 40 mg 03/05/25 10:00 03/06/25 08:21 Pantoprazole Sodium 40 Mg Tablet PO 40 mg DAILY AMMY Administration Pramipexole Dihydrochloride 1.5 mg 03/04/25 22:00 03/05/25 21:41 Pramipexole Di-Hcl 0.5 Mg Tablet PO 1.5 mg QHS AMMY Administration Ranolazine 500 mg 03/04/25 22:00 03/06/25 08:22 Ranolazine 500 Mg Tablet PO 500 mg BID AMMY Administration Sodium Chloride 10 - 40 ml 03/04/25 18:41 03/05/25 19:00 0.9% Saline Lock 10 Ml Syringe IV 20 ml UD PRN Administration SALINE FLUSH Tamsulosin HCl 0.4 mg 03/05/25 22:00 03/05/25 21:43 Tamsulosin Hcl 0.4 Mg Capsule PO 0.4 mg QHS AMMY Administration Lab / Micro Data 03/06/25 04:22 03/06/25 04:22 Labs: Laboratory Results - last 24 hr 03/05/25 15:47: Troponin T High Sens 63 H* 03/05/25 17:36: POC Glucose 135 H 03/05/25 17:59: Troponin T Hi Sens 2 Hr 59 H* 03/05/25 19:58: POC Glucose 59 L 03/05/25 20:32: Troponin T Hi Sens 4Hr 59 H* 03/05/25 21:13: POC Glucose 78 03/05/25 23:01: POC Glucose 174 H 03/06/25 04:22: WBC 7.5, RBC 2.86 L, Hgb 10.7 L, Hct 27.9 L, MCV 97.6 H D, MCH 37.4 H, MCHC 38.4 H D, RDW Std Deviation 55.1 H, RDW Coeff of Justin 17.5 H, Plt Count 310, MPV 10.1, Immature Gran % (Auto) 0.800, Neut % (Auto) 78.7 H, Lymph %(Auto) 11.9 L, [place] % (Auto) 7.0, Eos % (Auto) 1.3, Baso % (Auto) 0.3, Absolute Neuts (auto) 5.9, Absolute Lymphs (auto) 0.89, Nucleated RBC % 0, Sodium 135, Potassium 3.8, Chloride 97 L, Carbon Dioxide 25.6, Anion Gap 13, BUN 61 H, Creatinine 2.53 H, Estim Creat Clear Calc 22.04 L, Est GFR (MDRD) Non-Af 24 L, BUN/Creatinine Ratio 24.1 H, Glucose 194 H, Calcium 9.1, Phosphorus 3.8, Magnesium 2.1, Procalcitonin 0.29 H 03/06/25 08:15: POC Glucose 154 H 03/06/25 11:47: POC Glucose 195 H Micro: Microbiology 03/04/25 20:10 Sputum, Expectorated/Coughed Gram Stain - Final 03/04/25 20:10 Sputum, Expectorated/Coughed Respiratory Culture - Preliminary Staphylococcus aureus 03/05/25 19:15 Mucosa - Nose SARS-CoV-2, Influenza & RSV (PCR) - Final Imaging Radiology Impression Chest CT 03/05/25 18:08 IMPRESSION: Bibasilar consolidations, left more than right, which may reflect aspiration, early stages of pneumonia, and/or atelectasis. Scattered tree-in-bud and reticular densities may reflect atypical pneumonia/postinflammatory changes with likely component of fibrosis/underlying chronic lung disease. Extensive pulmonary emphysema. Mild cardiomegaly and trace pericardial effusion. Mediastinal lymphadenopathy. Reading Location: [facility] Assessment and Plan . Assessment and plan: Subjective: No acute events o/n. Feels breathing improving. Still with some productive cough Physical Exam: Gen - NAD, elderly HEENT - MMM. Sclera anicteric Resp - Diminished, few crackles. Breathing nonlabored CV - RRR. No m/g/r Abd - Soft, NT, ND Ext - No c/c/e. Skin - No rashes? Neuro - Grossly nonfocal. Alert and oriented I have reviewed the pertinent vital sign, laboratory, and imaging data. ASSESSMENT: # Dyspnea # Staph aureus PNA # CHF EF 40% # COPD - CT with significant emphysema, minimal fibrotic change # Chronic Afib/flutter # NSTEMI - slight trop elevation # h/o AAA repair # CKD # HTN # MARIXA # DM # PAD # h/o tobacco use PLAN: -On RA, breathing comfortably. Monitor. Encourage IS, mobilization as tolerated -On empiric zosyn, add vanc given staph aureus in sputum pending speciation MSSAvs MRSA. Mild procal elevation, viral studies neg -Cont IV diuresis to maintain euvolemia. Cardiology eval pending -Cont budesonide, duonebs. Can hold off on systemic steroids for now. Add flutter valve, mucinex -Consider swallow eval Proph DVT/GI: Eliquis We will sign off given clinical improvement. Please call us back with any questions or if clinical worsening The entirety of this encounter was done via telemedicine using both audio and video. Consent was obtained. 03/06/25 4320 <Electronically signed by Guillermo Briones MD> Cosigner Signature (if applicable): CC: ~ Signed [facility] Work Phone: [phone]) 297-961005-30-2025 Consult note Author Guillermo Briones [facility] Note Date/Time March 05, 2025 6:20p m [facility] Medical Records Department [address] [place] [address] Consultation - Welding Manager 03/05/251811 MR#: [id number] Acct: [id number] Name: DESIREE AMES Rep #:[id number] : 1935 89 From: Guillermo Briones MD PCP: Dr. Riaz Garrison MD Status:ADM IN Location: [place] [address] HPI Consult Data Date of Consult: 03/05/25 HPI Narrative HPI Narrative: DESIREE AMES, is a 89yo M w/ CHF EF 40%, COPD, chronic Afib/flutter, h/o AAA repair, CKD, HTN, MARIXA, DM, PAD, ho tobacco use who was admitted with worsening fatigue. He was recently discharged from here for CHF exacerbation requiring IV diuresis. Since discharge he has had progressive worsening dyspnea and productive cough with greenish/phlegm. Had transient CP but now resolved. No fevers/chills, sick contacts, worsening LE swelling, vomiting, diarrhea. Pulmonary consulted for further assistance. Pt currently breathing comfortably on RA. Feels breathing improving compared to yest. Quit smoking 2007. ROS: 12-point ROS negative except as above. [facility] Medical History Right carotid bruit Stable angina Kidney disease GERD (gastroesophageal reflux disease) Irregular heart beat Myocardial infarct Complicated urinary tract infection Urinary tract infection Colonic mass Controlled type 2 diabetes mellitus Acute respiratory insufficiency Chronic kidney disease Chronic anemia Bilateral edema of lower extremity Urinary retention Fatigue Pleural effusion (HFpEF) heart failure with preserved ejection fraction Pneumonia Colon polyp Lightheadedness Chronic constipation Anemia Obstructive sleep apnea Coronary artery disease Gastroesophageal reflux disease Allergic rhinitis Hyperlipidemia Urinary retention Wears hearing aid Wears dentures Wears glasses Cancer History of steroid therapy Ambulates with cane Walker as ambulation aid Arthritis Kidney stone Easy bruising Back pain Injury of back History of hiatal hernia Former smoker BiPAP (biphasic positive airway pressure) dependence Asthma Hoarseness Chronic cough Leg cramps History of pain when walking History of stress test History of heart attack History of irregular heartbeat Recurrent urinary tract infection ALMEIDA (dyspnea on exertion) Chest pain Right leg swelling Patellar bursitis of right knee Asthma-COPD overlap syndrome Abdominal aortic aneurysm (AAA) Peripheral vascular disease of extremity with claudication Rectus sheath hematoma Pre-syncope Essential (primary) hypertension Restless legs syndrome Daytime hypersomnia Somatic dysfunction of pelvic region DDD (degenerative disc disease), lumbar Overweight Seasonal allergies Carotid bruit Atherosclerotic heart disease of [place] coronary artery without angina pectoris PVD (peripheral vascular disease) COPD (chronic obstructive pulmonary disease) Home Medications ?Medication ?Instructions ?Recorded ?Last Taken ?Type handicap placcard #1 ea 09/28/19 Unknown Rx coenzyme Q10 100 mg capsule (Co 100 mg PO DAILY supple ment 05/03/20 01/29/25 History Q-10) cholecalciferol (vitamin D3) 100 100 mcg PO DAILY supp lement 11/03/20 01/29/25 History mcg (4,000 unit) tablet spacer #1 ea 01/12/21 Unknown Rx lancets #180 ea 07/18/23 Unknown Rx montelukast 10 mg tablet 10 mg PO QHS Respiratory #90 tabs 05/04/24 02/18/25 Rx atorvastatin 40 mg tablet 40 mg PO QODAY cholesterol # 45 tabs 05/13/24 01/27/25 Rx tamsulosin 0.4 mg capsule 0.4 mg PO DAILY prostate 01/22/25 History finasteride 5 mg tablet 5 mg PO DAILY prostate 06/2801/28/25 History insulin aspart U-100 100 unit/mL 10 unit (0.1 mL) subc ut TID 10/07/24 01/29/25 Rx subcutaneous cartridge (Novolog diabetes #15 mL PenFill U-100 Insulin aspart) handicap placard #1 ea 10/12/24 Unknown Rx budesonide-formoterol HFA 160 2 puff inhalation BID co pd #3 ea 10/16/24 01/28/25 Rx mcg-4.5 mcg/actuation aerosol inhaler (Symbicort) pantoprazole 40 mg tablet,delayed 40 mg PO DAILY reflu x #90 tabs 11/30/24 01/29/25 Rx release apixaban 2.5 mg tablet (Eliquis) 2.5 mg PO BID atrial fibrillation 12/14/24 02/19/25 Rx #180 tabs ipratropium bromide 21 mcg (0.03 2 spray intranasal BI D PRN allergy 03/10/25 Unknown History %) nasal spray symptoms blood sugar diagnostic (OneTouch #180 ea 12/21/24 Unkn own Rx Ultra Test strips) albuterol sulfate 90 mcg/actuation 2 inh inhalation Q4 H PRN shortness 01/04/25 01/28/25 Rx aerosol inhaler (Ventolin HFA) of breath or wheezing # 18 grams hydralazine 100 mg tablet 100 mg PO BID hypertension # 180 01/26/25 02/19/25 Rx tabs ranolazine 500 mg tablet,extended 500 mg PO BID chest pain #180 tabs 01/26/25 02/19/25 Rx release,12 hr ropinirole 1 mg tablet 3 mg (3 x 1 mg) PO QHS restl ess 01/26/25 02/18/25 Rx leg #90 tabs ipratropium 0.5 mg-albuterol 3 mg 3 ml inhalation TID SOB &/OR 01/29/25 01/28/25 History (2.5 mg base)/3 mL nebulization WHEEZING soln loratadine 10 mg tablet (Allergy 10 mg PO DAILY allerg ies 01/29/25 01/28/25 History Relief (loratadine)) 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,rug designer,cont #1 ea 02/01/25 Unknown Rx (FreeStyle [place] 3 [place]) 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 sensor (FreeStyle #3 ea 02/10/25 Unknown Rx Dwight 3 Plus Sensor device) insulin glargine 100 unit/mL (3 22 unit subcut DAILY d iabetes 02/15/25 Unknown History mL) subcutaneous pen (Lantus Solostar U-100 Insulin) nitroglycerin 0.4 mg sublingual 0.4 mg sublingual Q5-1 5M PRN chest 02/15/25 Unknown Rx tablet (Nitrostat) pain #25 tabs pen needle, diabetic 31 gauge x #100 ea 02/15/25 Unkno wn Rx / (Unifine Pentips) aspirin 81 mg tablet,delayed 81 mg PO BREAKFAST heart health #0 02/18/25 Unknown Rx release tabs Held on 03/04/25. Instructions: Pt TOOK MYSELF OFF OF IT ferrous sulfate 325 mg (65 mg 325 mg PO DAILY low iron #30 tabs 02/18/25 Unknown Rx iron) tablet (FeroSul) lactulose 10 gram/15 mL oral 20 g (30 mL) PO DAILY con stipation 02/18/25 Unknown Rx solution #946 mL dextromethorphan-guaifenesin 10 5 ml PO Q4H PRN PRN Co ugh #0 mL 02/22/25 Unknown Rx mg-100 mg/5 mL oral syrup furosemide 40 mg tablet 40 mg PO UD #90 tabs 5 Unknown Rx potassium chloride 10 mEq 20 meq (2 x 10 mEq) PO BIDCM 03/02/25 Unknown Rx tablet,extended release(part/cryst) supplement #60 tab s carvedilol 3.125 mg tablet 6.25 mg PO BID Heart Unknown History Allergy/AdvReac Type Severity Reaction Status Date / Time cilostazol (From Pletal) Allergy Unknown Verified 03/04/25 12:51 felodipine Allergy Hives Verified 03/04/25 12:51 levofloxacin Allergy Hives Verified 03/04/25 12:51 Sulfa (Sulfonamide Allergy Unknown Verified 03/04/25 12:51 Antibiotics) isosorbide AdvReac Intermediate low BP Verified 03/04/25 12:51 Family History Father Diabetes Cancer Prostate cancer Mother Dementia Brother Parkinsons Brother Cancer H/O vascular surgery Surgical History History of appendectomy History of surgical procedure H/O vascular surgery History of surgical procedure History of transurethral resection of prostate History of endarterectomy (07/2018) History of left heart catheterization (03/2014) History of coronary artery stent placement (02/17/08) History of vascular surgery (08/2018) History of hernia repair H/O aortic aneurysm repair (11/1998) Social History household members: spouse 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 status: 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 Smoking Status: Former smoker quit date: 08/07/08 pack-years: 2 Tobacco: How many years used: 52 Electronic Cigarette Use: not used how long ago did patient quit smokin years ago alcohol intake: current alcohol intake frequency: holidays/special occasions only details: hx of alcohol abuse substance use type: does not use caffeine: No what type of physical activity do you participate in: other details: Nustep frequency: 5-6 times per week duration: 15-30 minutes/day seatbelt use: always do you feel safe at home: Yes Objective Data Objective Data Vital Signs: Vital Signs Last response 3 Temperature 36.6 C 03/05/25 17:52 Temperature Source Oral 03/05/25 17:52 Pulse Rate 69 03/05/25 17:52 Pulse Strength Normal (2+) 03/05/25 10:00 Respiratory Rate 18 03/05/25 17:52 Respiratory Effort Normal, Short of Breath 03/05/25 08:43 Respiratory Depth Normal 03/05/25 08:43 Respiratory Pattern Normal 03/05/25 13:16 Blood Pressure 131/71 H 03/05/25 17:52 Blood Pressure Mean 91 03/05/25 17:52 Blood Pressure Source Monitor 03/05/25 17:52 Blood Pressure Position Semi-Fowlers 03/05/25 17:52 Blood Pressure Location Right Arm 03/05/25 17:52 Pulse Ox 96 03/05/25 17:52 Oxygen Delivery Method Room Air 03/05/25 17:52 I&O: I&O Last 24 Hours 3 03/04/25 03/05/25 03/05/25 23:59 11:59 23:59 Intake Total 100 / 400 800 / 1250 450 / 1250 Balance 100 / 400 800 / 1250 450 / 1250 I&O: Total Stay 3 03/04/25 12:46 thru 03/05/25 18:00 Intake Total 1350 Balance 1350 Current Meds Ordered / Administered: Current meds ordered / Administered 3 Generic Name Dose Route Start Last Admin Trade Name Freq PRN Reason Stop Dose Admin Albuterol Sulfate 2.5 mg 03/04/25 18:34 Albuterol 2.5 Mg/3 Ml Vial.Neb. INHALATION Q4H PRN shortness of breath or wheezing Albuterol/Ipratropium 3 ml 03/04/25 22:00 03/05/25 13:16 Ipratropium/Albuterol Sulfate 3 Ml Ampul.Neb INHALATION 3 ml TID AMMY Administration Apixaban 2.5 mg 03/04/25 22:00 03/05/25 09:21 Apixaban 2.5 Mg Tablet ([facility]) PO 2.5 mg BID AMMY Administration Atorvastatin Calcium 40 mg 03/05/25 10:00 03/05/25 09:22 Atorvastatin Calcium 40 Mg Tablet PO 40 mg Q48 AMMY Administration Budesonide 0.5 mg 03/04/25 18:50 03/05/25 07:28 Budesonide Respules 0.5 Mg/2 Ml Ampul.Neb. INHALATION 0.5 mg Q12H.RT AMMY Administration Calamine/Phenol 1 applic 03/05/25 10:00 03/05/25 09:20 Menthol/Lanolin/Calamine/Znox 113 Gm Tube TOPICAL 1 applic BID AMMY Administration Protocol Carvedilol 6.25 mg 03/05/25 17:00 03/05/25 16:12 Carvedilol 6.25 Mg Tablet PO 6.25 mg BIDCM AMMY Administration Protocol Finasteride 5 mg 03/04/25 22:00 03/05/25 12:25 Finasteride 5 Mg Tablet PO Not Given DAILY AMMY Furosemide 80 mg 03/05/25 10:00 03/05/25 09:22 Furosemide 80 Mg Tablet PO 80 mg DAILY AMMY Administration Protocol Furosemide 40 mg 03/05/25 16:00 03/05/25 16:11 Furosemide 40 Mg Tablet PO 40 mg DAILY@1600 AMMY Administration Protocol Furosemide 40 mg 03/05/25 18:00 Furosemide 40 Mg/4 Ml Vial IV BIDLX AMMY Protocol Guaifenesin 5 ml 03/04/25 17:28 03/04/25 22:25 Guaifenesin Dm 10 Ml Udc PO 5 ml Q4H PRN PRN Administration Cough Hydralazine HCl 100 mg 03/04/25 22:00 03/05/25 09:20 Hydralazine 50 Mg Tablet PO 100 mg BID AMMY Administration Piperacillin Sod/Tazobactam 50 mls @ 12.5 mls/hr 03/04/25 22:00 03/05/25 16:05 Sod 3.375 gm/ Sodium Chloride IV 03/11/25 22:01 12.5 mls/hr Q8 AMMY Administration Sodium Chloride 250 mls @ 15 mls/hr 03/04/25 18:41 03/05/25 15:10 IV Infused .[id number] PRN Infusion Saline Flush Sodium Chloride 250 mls @ 15 mls/hr 03/04/25 18:41 IV .[id number] PRN Additional IVPB Infusion Insulin Glargine 22 unit 03/05/25 10:00 03/05/25 09:21 Insulin Glargine-Yfgn 100 Unit/Ml Pen SC 22 unit DAILY AMMY Administration Insulin Human Lispro 10 unit 03/05/25 08:00 03/05/25 12:25 Insulin Lispro 100 Unit/Ml Insuln.Pen SC 10 units TIDCM [facility] Administration Ipratropium [place] 1 spray 03/04/25 18:41 Ipratropium [place] 0.06% Nasal [place] NASAL BID PRN allergy symptoms Loratadine 10 mg 03/05/25 10:00 03/05/25 09:21 Loratadine 10 Mg Tablet PO 10 mg Q48 [facility] Administration Montelukast Sodium 10 mg 03/04/25 22:00 03/04/25 22:28 Montelukast 10 Mg Tablet PO 10 mg QHS [facility] Administration Nitroglycerin 0.4 mg 03/04/25 18:45 Nitroglycerin (Inpatient Use) 0.4 Mg Tab.Subl SL Q5M PRN CARDIAC/CHEST PAIN Pantoprazole Sodium 40 mg 03/05/25 10:00 03/05/25 09:22 Pantoprazole Sodium 40 Mg Tablet PO 40 mg DAILY [facility] Administration Pramipexole Dihydrochloride 1.5 mg 03/04/25 22:00 03/04/25 22:27 Pramipexole Di-Hcl 0.5 Mg Tablet PO 1.5 mg QHS [facility] Administration Ranolazine 500 mg 03/04/25 22:00 03/05/25 09:22 Ranolazine 500 Mg Tablet PO 500 mg BID [facility] Administration Sodium Chloride 10 - 40 ml 03/04/25 18:41 0.9% Saline Lock 10 Ml Syringe IV UD PRN SALINE FLUSH Tamsulosin HCl 0.4 mg 03/05/25 22:00 Tamsulosin Hcl 0.4 Mg Capsule PO QHS [facility] Lab / Micro Data 03/05/25 06:02 03/05/25 06:02 Labs: Laboratory Results - last 24 hr 03/04/25 22:35: POC Glucose 257 H 03/05/25 06:02: WBC 10.6, RBC 3.70 L, Hgb 10.8 L, Hct 33.7 L, MCV 91.1, MCH 29.2, MCHC 32.0 D, RDW Std Deviation 53.1 H, RDW Coeff of Justin 16.2 H, Plt [id number], MPV 9.9, Immature Gran % (Auto) 0.900, Neut % (Auto) 83.6 H, Lymph % (Auto)9.1 L, [place] % (Auto) 5.4, Eos % (Auto) 0.9, Baso % (Auto) 0.1, Absolute Neuts (auto) 8.9 H, Absolute Lymphs (auto) 0.96, Nucleated RBC % 0, PT 21.6 H, INR 1.8, Sodium 134, Potassium 4.3, Chloride 97 L, Carbon Dioxide 25.6, Anion Gap 12, BUN 66 H, Creatinine 2.50 H, Estim Creat Clear Calc 22.30 L, Est GFR (MDRD) Non-Af 24 L, BUN/Creatinine Ratio 26.5 H, Glucose 109 H, Calcium 9.1, Phosphorus3.5, Magnesium 2.1, Total Bilirubin 0.58, Direct Bilirubin 0.34 H, AST 20, ALT 12, Alkaline Phosphatase 69, Total Protein 6.6, Albumin 3.2 L, Globulin 3.4, Albumin/Globulin Ratio 0.9, TSH 1.620 03/05/25 09:18: POC Glucose 139 H 03/05/25 12:05: POC Glucose 223 H 03/05/25 15:47: Troponin T High Sens 63 H* 03/05/25 17:36: POC Glucose 135 H Micro: Microbiology 03/04/25 20:10 Sputum, Expectorated/Coughed Gram Stain - Final Assessment and Plan . Assessment and plan: Physical Exam: Gen - NAD, elderly HEENT - MMM. Sclera anicteric Resp - Diminished, few crackles. Breathing nonlabored CV - RRR. No m/g/r Abd - Soft, NT, ND Ext - No c/c/e. Skin - No rashes? Neuro - Grossly nonfocal. Alert and oriented I have reviewed the pertinent vital sign, laboratory, and imaging data. ASSESSMENT: # Dyspnea # CHF EF 40% # COPD - prior CT with significant emphysema # Chronic Afib/flutter # NSTEMI - slight trop elevation # h/o AAA repair # CKD # HTN # MARIXA # DM # PAD # h/o tobacco use PLAN: -On RA, breathing comfortably. Monitor. Encourage IS, mobilization as tolerated -Cont IV diuresis, target negative fluid balance as tolerated -Agree with trending trop, cardiology evaluation -Obtain CT chest -Cont budesonide, duonebs. Can hold off on systemic steroids for now -On empiric abx for now, may be able to de-escalate soon. f/u sputum Cx, viral panel, procal Proph DVT/GI: Eliquis The entirety of this encounter was done via telemedicine using both audio and video. Consent was obtained. 03/05/251819 <Electronically signed by Guillermo Briones MD> Cosigner Signature (if applicable): CC: Dr. Riaz Garrison MD~ Signed [facility] Work Phone: [phone]) 264-305605-30-2025 Progress note Author [facility] Note Date/Time March 05, 2025 5:43p m [facility] Medical Records Department [facility] [place] [address] Progress Note 03/05/25 1458 MR#: [id number] Acct: [id number] Name: DESIREE AMES Rep #:[id number] : 1935 89 From: Tracey Orantes MD PCP: Dr. Riaz Garrison MD Status:ADM IN Location: [place] [address] Subjective Subjective Patient seen and examined. He admits to a cough which is productive of occasional greenish colored sputum. He denied any fever, chills, palpitations, dizziness, nausea or vomiting or any other symptoms. He is on room air. Reviewof systems otherwise negative. Objective Data Objective Data Vital Signs: Vital Signs Temp Pulse Resp BP Pulse Ox O2 Del Method 98.1 F 73 16 125/60 H 96 Room Air 03/05/25 08:42 03/05/25 13:16 03/05/25 13:16 03/05/25 08:42 03/05/25 08:42 03/05/25 08:43 Oxygen Delivery Method Room Air Weight: 191 lb 4.8 oz Body Mass Index (BMI) 29.0 Intake & Output: Intake and Output for Last 24 Hours 03/03/25 03/04/25 03/05/25 23:59 23:59 23:59 Intake Total 100 / 400 800 / 800 Balance 100 / 400 800 / 800 Lab / Micro Data 03/05/25 06:02 03/05/25 06:02 Labs: Laboratory Results - last 24 hr 03/04/25 13:46: Sodium 133, Potassium 4.7, Chloride 94 L, Carbon Dioxide 25.8, Anion Gap 12, BUN 72 H, Creatinine 2.55 H, Est GFR (MDRD) Non-Af 24 L, BUN/Creatinine Ratio 28.2 H, Glucose 129 H, Calcium 9.1, Troponin T High Sens 61 H* D, NT pro BNP II 4021 H 03/04/25 14:53: Urine Color Yellow, Urine Clarity Clear, Urine pH 6.0, Ur Specific [place] 1.010, Urine Protein 15 H, Urine Glucose (UA) Normal, Urine Ketones Negative, Urine Occult Blood 10 H, Urine Nitrite Negative, Urine Bilirubin Negative, Urine Urobilinogen Normal, Ur Leukocyte Esterase 25 H, UrineRBC 0-5 SEEN, Urine WBC 0- 5 SEEN, Ur Squamous Epith Cells 0-5 SEEN, Urine Bacteria 0 SEEN, Urine Mucus 0 SEEN 03/04/25 22:35: POC Glucose 257 H 03/05/25 06:02: WBC 10.6, RBC 3.70 L, Hgb 10.8 L, Hct 33.7 L, MCV 91.1, MCH 29.2, MCHC 32.0 D, RDW Std Deviation 53.1 H, RDW Coeff of Justin 16.2 H, Plt [id number], MPV 9.9, Immature Gran % (Auto) 0.900, Neut % (Auto) 83.6 H, Lymph % (Auto)9.1 L, [place] % (Auto) 5.4, Eos % (Auto) 0.9, Baso % (Auto) 0.1, Absolute Neuts (auto) 8.9 H, Absolute Lymphs (auto) 0.96, Nucleated RBC % 0, PT 21.6 H, INR 1.8, Sodium 134, Potassium 4.3, Chloride 97 L, Carbon Dioxide 25.6, Anion Gap 12, BUN 66 H, Creatinine 2.50 H, Estim Creat Clear Calc 22.30 L, Est GFR (MDRD) Non-Af 24 L, BUN/Creatinine Ratio 26.5 H, Glucose 109 H, Calcium 9.1, Phosphorus3.5, Magnesium 2.1, Total Bilirubin 0.58, Direct Bilirubin 0.34 H, AST 20, ALT 12, Alkaline Phosphatase 69, Total Protein 6.6, Albumin 3.2 L, Globulin 3.4, Albumin/Globulin Ratio 0.9, TSH 1.620 03/05/25 09:18: POC Glucose 139 H 03/05/25 12:05: POC Glucose 223 H Micro: Microbiology 03/04/25 20:10 Sputum, Expectorated/Coughed Gram Stain - Final Physical Exam Const alert, oriented x3 and no apparent distress Constitutional Narrative: frail General Appearance: cooperative HEENT normocephalic, head/scalp atraumatic, moist oral mucous membranes and oropharynxnormal Eyes PERRL and EOMs intact bilaterally Neck supple and no JVD Lymph Lymphatic: no lymphedema noted Resp Resp Narrative: mildly diminished breath sounds bibasally, no wheezes or crackles. On room air. Cardio regular rate, regular rhythm, S1 normal heart sound, S2 normal heart sound and no murmurs GI normal to inspection, nondistended, normoactive bowel sounds, soft to palpation,non-tender and non-distended Extremity normal capillary refill, no clubbing, cyanosis or edema and no calf tenderness General Extremity: no tenderness to palpation of joints or extremities Skin General Skin Exam: no breakdown Neuro CN's II-XII intact bilaterally, no focal motor deficits and no sensory deficits noted Motor Exam: general weakness Psych thought process normal and cooperative Appearance: appropriate Assessment & Plan Assessment/Plan (1) Hypoxemia: (2) COPD exacerbation: (3) Acute cough: PLAN: Plan #Hypoxia due to COPD exacerbation and probable pneumonia benito acute on chronic exacerbation of heart failure * admitted with a complaint of shortness of breath. He was recently admitted and treated for acute decompensated herat failure. * he is currently on room air. * on IV zosyn. Previous sputum cultures grew Citrobactere, Enterobacter and Raoultella sensitive to zosyn. These cultures were from 02/19/2025. Again it does not appear that he was placed on antibiotics for this. * Chest x-ray with this admission showed findings suggestive of chronic interstitial fibrosis and did not show any evidence of pneumonia. Therefore not convinced that patient has pneumonia and I think it is all likely related to his heart. * breathing treatment with bronchodilators * titrate oxygen to maintain sats >90% * Initial troponin was 61. Troponins were not cycled. During his most recent admission his troponins peaked at 271. * 2D echo done on 02/15/2025 showed moderate concentric left ventricular hypertrophy with left ventricular EF of 40% and bouts of moderate hypokinesis of the left ventricle with left atrium severely enlarged and right atrium mildly enlarged. It does not appear that cardiology saw him during that admission despite his elevated troponins and decreased EF * I do think it is prudent to get cardiology to evaluate him as he has presented again with shortness of breath. I think he will benefit from cardiac cath * Will cycle troponins * #Acute exacerbation of heart failure with reduced ejection fraction * 2D echo as above. Has known EF of 40%. Will hold all Lasix and start diuresis with IV Lasix. * Consult cardiology as stated above on account of the echo findings. * fluid restriction to 1500cc daily * pro BNP is elevated at >4000 * #CKD III: Cr is 2.5, at her baseline. Will monitor. #CAD: on SL nitroglycerin prn. 2D echo as above. Consult cardiology. He has a history of CAD s/p stent in hal RCA. #COPD: not in exacerbation. Breathing treatment with bronchodilators. #Afib: on carvedilol and eliquis #Type 2 diabetes mellitus: on lantus. ISS. Accuchecks ACHS #History of restless leg syndrome: on ropinirole. DVT prophylaxis: on eliquis Disposition: transfer to PCU Charges/Coding Visit Charges Inpatient E&M: 92524 Subs Hosp L2 03/05/25 4149 <Electronically signed by Tracey Orantes MD> Tracey Orantes MD Cosigner Signature (if applicable): CC: ~ Signed [facility] Work Phone: 1(227) 448-216805-30-2025 Radiology Diagnostic study [facility]05-29-2025 History and physical note Author Hansel Gillis [facility] Note Date/Time March 04, 2025 8:07p m [facility] Medical Records Department [address] [place] [address] H&P Exam - Hospitalist 03/04/25 7135 MR#: [id number] Acct: [id number] Name: DESIREE AMES Rep #:[id number] : 1935 89 From: Hansel Gillis MD PCP: Dr. Riaz Garrison MD Status:ADM [place] [facility] [id number] - General General Date of Admission: 03/04/25 Date of Service: 03/04/25 HPI Narrative DESIREE AMES, is a 89 M with past medical history of congestive heart failure, recently discharged after management for acute decompensated heart failure on 02/18/2025, hypertension, dyslipidemia, obesity, MARIXA, type 2 diabetes, diabetic neuropathy, coronary artery disease s/p distal RCA stent on ranolazine, chronic atrial fibrillation/flutter, history of AAA repair, prior tobacco use, COPD, CKDwith baseline creatinine around 2.3, iron deficiency anemia, peripheral vasculardisease who presents concerns regarding leukocytosis with ongoing fatigue for the last few days. The patient was recently discharged from the hospital of an admission for NARENDRA following initiation of diuretics for acute decompensated heart failure. At thetime of discharge he was sent home as he was maintaining saturation well on roomair. Since his discharge notes progressive shortness of breath with occasional cough with expectoration. Today at the time of presentation in the ED, he was afebrile, blood pressure 113/65, respiratory rate 14, satting 95% on room air with no leukocytosis WBC 10.7 down from 15.0 yesterday, hemoglobin 11.3, platelet count 360, creatinine 2.5, BUN 72, sodium 133, potassium 4.7 troponin T 61, NT proBNP 4021 urine protein 15 with a leuk esterase of 25, 0-5 WBCs and no bacteria PFSH Medical History Right carotid bruit Stable angina Kidney disease GERD (gastroesophageal reflux disease) Irregular heart beat Myocardial infarct Complicated urinary tract infection Urinary tract infection Colonic mass Controlled type 2 diabetes mellitus Acute respiratory insufficiency Chronic kidney disease Chronic anemia Bilateral edema of lower extremity Urinary retention Fatigue Pleural effusion (HFpEF) heart failure with preserved ejection fraction Pneumonia Colon polyp Lightheadedness Chronic constipation Anemia Obstructive sleep apnea Coronary artery disease Gastroesophageal reflux disease Allergic rhinitis Hyperlipidemia Urinary retention Wears hearing aid Wears dentures Wears glasses Cancer History of steroid therapy Ambulates with cane Walker as ambulation aid Arthritis Kidney stone Easy bruising Back pain Injury of back History of hiatal hernia Former smoker BiPAP (biphasic positive airway pressure) dependence Asthma Hoarseness Chronic cough Leg cramps History of pain when walking History of stress test History of heart attack History of irregular heartbeat Recurrent urinary tract infection ALMEIDA (dyspnea on exertion) Chest pain Right leg swelling Patellar bursitis of right knee Asthma-COPD overlap syndrome Abdominal aortic aneurysm (AAA) Peripheral vascular disease of extremity with claudication Rectus sheath hematoma Pre-syncope Essential (primary) hypertension Restless legs syndrome Daytime hypersomnia Somatic dysfunction of pelvic region DDD (degenerative disc disease), lumbar Overweight Seasonal allergies Carotid bruit Atherosclerotic heart disease of [place] coronary artery without angina pectoris PVD (peripheral vascular disease) COPD (chronic obstructive pulmonary disease) Home Medications ?Medication ?Instructions ?Recorded ?Last Taken ?Type handicap placcard #1 ea 09/28/19 Unknown Rx coenzyme Q10 100 mg capsule (Co 100 mg PO DAILY supple ment 05/03/20 01/29/25 History Q-10) cholecalciferol (vitamin D3) 100 100 mcg PO DAILY supp lement 11/03/20 01/29/25 History mcg (4,000 unit) tablet spacer #1 ea 01/12/21 Unknown Rx lancets #180 ea 07/18/23 Unknown Rx montelukast 10 mg tablet 10 mg PO QHS Respiratory #90 tabs 05/04/24 02/18/25 Rx atorvastatin 40 mg tablet 40 mg PO QODAY cholesterol # 45 tabs 05/13/24 01/27/25 Rx tamsulosin 0.4 mg capsule 0.4 mg PO DAILY prostate 01/22/25 History finasteride 5 mg tablet 5 mg PO DAILY prostate 06/2801/28/25 History insulin aspart U-100 100 unit/mL 10 unit (0.1 mL) subc ut TID 10/07/24 01/29/25 Rx subcutaneous cartridge (Novolog diabetes #15 mL PenFill U-100 Insulin aspart) handicap placard #1 ea 10/12/24 Unknown Rx budesonide-formoterol HFA 160 2 puff inhalation BID co pd #3 ea 10/16/24 01/28/25 Rx mcg-4.5 mcg/actuation aerosol inhaler (Symbicort) pantoprazole 40 mg tablet,delayed 40 mg PO DAILY reflu x #90 tabs 11/30/24 01/29/25 Rx release apixaban 2.5 mg tablet (Eliquis) 2.5 mg PO BID atrial fibrillation 12/14/24 02/19/25 Rx #180 tabs ipratropium bromide 21 mcg (0.03 2 spray intranasal BI D PRN allergy 12/14/24 Unknown History %) nasal spray symptoms blood sugar diagnostic (OneTouch #180 ea 12/21/24 Unkn own Rx Ultra Test strips) albuterol sulfate 90 mcg/actuation 2 inh inhalation Q4 H PRN shortness 01/04/25 01/28/25 Rx aerosol inhaler (Ventolin HFA) of breath or wheezing # 18 grams hydralazine 100 mg tablet 100 mg PO BID hypertension # 180 01/26/25 02/19/25 Rx tabs ranolazine 500 mg tablet,extended 500 mg PO BID chest pain #180 tabs 01/26/25 02/19/25 Rx release,12 hr ropinirole 1 mg tablet 3 mg (3 x 1 mg) PO QHS restl ess 01/26/25 02/18/25 Rx leg #90 tabs ipratropium 0.5 mg-albuterol 3 mg 3 ml inhalation TID SOB &/OR 01/29/25 01/28/25 History (2.5 mg base)/3 mL nebulization WHEEZING soln loratadine 10 mg tablet (Allergy 10 mg PO DAILY allerg ies 01/29/25 01/28/25 History Relief (loratadine)) 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,rug designer,cont #1 ea 02/01/25 Unknown Rx (FreeStyle [place] 3 [place]) 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 sensor (FreeStyle #3 ea 02/10/25 Unknown Rx Dwight 3 Plus Sensor device) insulin glargine 100 unit/mL (3 22 unit subcut DAILY d iabetes 02/15/25 Unknown History mL) subcutaneous pen (Lantus Solostar U-100 Insulin) nitroglycerin 0.4 mg sublingual 0.4 mg sublingual Q5-1 5M PRN chest 02/15/25 Unknown Rx tablet (Nitrostat) pain #25 tabs pen needle, diabetic 31 gauge x #100 ea 02/15/25 Unkno wn Rx 10/10 (Unifine Pentips) aspirin 81 mg tablet,delayed 81 mg PO BREAKFAST heart health #0 02/18/25 Unknown Rx release tabs Held on 03/04/25. Instructions: Pt TOOK MYSELF OFF OF IT ferrous sulfate 325 mg (65 mg 325 mg PO DAILY low iron #30 tabs 02/18/25 Unknown Rx iron) tablet (FeroSul) lactulose 10 gram/15 mL oral 20 g (30 mL) PO DAILY con stipation 02/18/25 Unknown Rx solution #946 mL dextromethorphan-guaifenesin 10 5 ml PO Q4H PRN PRN Co ugh #0 mL 02/22/25 Unknown Rx mg-100 mg/5 mL oral syrup furosemide 40 mg tablet 40 mg PO UD #90 tabs 5 Unknown Rx potassium chloride 10 mEq 20 meq (2 x 10 mEq) PO BIDCM 03/02/25 Unknown Rx tablet,extended release(part/cryst) supplement #60 tab s carvedilol 3.125 mg tablet 6.25 mg PO BID Heart Unknown History Allergy/AdvReac Type Severity Reaction Status Date / Time cilostazol (From Pletal) Allergy Unknown Verified 03/04/25 12:51 felodipine Allergy Hives Verified 03/04/25 12:51 levofloxacin Allergy Hives Verified 03/04/25 12:51 Sulfa (Sulfonamide Allergy Unknown Verified 03/04/25 12:51 Antibiotics) isosorbide AdvReac Intermediate low BP Verified 03/04/25 12:51 Family History Father Diabetes Cancer Prostate cancer Mother Dementia Brother Parkinsons Brother Cancer H/O vascular surgery Surgical History History of appendectomy History of surgical procedure H/O vascular surgery History of surgical procedure History of transurethral resection of prostate History of endarterectomy (07/2018) History of left heart catheterization (03/2014) History of coronary artery stent placement (02/17/08) History of vascular surgery (08/2018) History of hernia repair H/O aortic aneurysm repair (11/1998) Social History household members: spouse 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 status: 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 Smoking Status: Former smoker quit date: 08/07/08 pack-years: 2 Tobacco: How many years used: 52 Electronic Cigarette Use: not used how long ago did patient quit smokin years ago alcohol intake: current alcohol intake frequency: holidays/special occasions only details: hx of alcohol abuse substance use type: does not use caffeine: No what type of physical activity do you participate in: other details: Nustep frequency: 5-6 times per week duration: 15-30 minutes/day seatbelt use: always do you feel safe at home: Yes ROS Review of Systems ROS Unobtainable: Denies due to encephalopathy, due to endotracheal tube, due tomental condition, due to mental status or other Constitutional Constitutional: Reports anorexia, chills and fatigue Eyes Eyes: Denies blurry vision, change in eye color, change in vision, discharge from eye(s), double vision, erythema, eye pain, loss of vision or other ENT HEENT: Denies abnormal hearing, dysphagia, ear pain, epistaxis, headache(s), hearing loss, nasal congestion, nasal discharge, post nasal drip, sinus pressure, sore throat or other Cardiovascular Cardiovascular: Denies chest pain, claudication, dyspnea on exertion, edema, lightheadedness, orthopnea, palpitations, paroxysmal nocturnal dyspnea, rapid heart rate, syncope or other Respiratory/Chest Respiratory/Chest: Denies cough, dyspnea, excessive phlegm production, hemoptysis, productive cough, shortness of breath at rest, shortness of breath with exertion, wheezing or other Gastrointestinal Gastrointestinal: Denies abdominal pain, coffee ground emesis, constipation, diarrhea, dyspepsia, hematemesis, hematochezia, loose stools, melena, nausea, vomiting or other Genitourinary Genitourinary: Denies burning urination, difficulty urinating, dysuria, hematuria, nocturia, urinary frequency, urinary hesitancy, urinary incontinence,urinary urgency or other Musculoskeletal Musculoskeletal: Denies arthralgias, back pain, joint pain, joint stiffness, joint swelling, myalgias, neck pain or other Neurologic Neurologic: Denies abnormal gait, abnormal speech, confusion, disequilibrium, dizziness, focal weakness, headache(s), numbness, paresthesias, seizure-like activity, seizures, syncope, tingling, tremor(s) or other Psychiatric Psychiatric: Denies anxiety, depression, homicidal ideation, suicidal ideation or other Endocrine Endocrinology: Denies change in body appearance, cold intolerance, excessive sweating, heat intolerance, polydipsia, polyuria or other Hematologic/Lymphatic Hematologic/Lymphatic: Denies anemia, easy bleeding, easy bruising, lymphadenopathy or other Allergic/Immunologic Allergic/Immunologic: Denies rhinitis, hives, eczemia, asthma or other Vital Signs Vital Signs Vital Signs: 03/04/25 12:47 03/04/25 12:47 03/04/25 14:47 Temperature 99 F Temperature Source Temporal Pulse Rate 63 74 Respiratory Rate 14 16 Respiratory Pattern Irregular Blood Pressure 113/65 115/59 L Blood Pressure Mean 81 77 Pulse Ox 95 98 Oxygen Delivery Method Room Air 03/04/25 15:53 03/04/25 16:00 Temperature 97.8 F Temperature Source Pulse Rate 72 63 Respiratory Rate 18 18 Respiratory Pattern Normal Blood Pressure 126/64 H Blood Pressure Mean 84 Pulse Ox 98 Oxygen Delivery Method Physical Exam Const alert, oriented x3 and no apparent distress HEENT normocephalic and head/scalp atraumatic Eyes PERRL and EOMs intact bilaterally Neck no lymphadenopathy Resp normal respiratory effort and no retractions Resp Narrative: Decreased bilateral breath sounds Cardio regular rate and regular rhythm GI normal to inspection, nondistended, normoactive bowel sounds Extremity normal to inspection Neuro oriented x3 and CN's II-XII intact bilaterally Results Lab / Micro Data 03/04/25 13:46 03/04/25 13:46 Labs: Laboratory Results - last 24 hr 03/04/25 13:46: WBC 10.7, RBC 3.25 L, Hgb 11.3 L, Hct 31.0 L, MCV 95.4 H, MCH 34.8 H, MCHC 36.5 H D, RDW Std Deviation 53.6 H, RDW Coeff of Justin 17.2 H, Plt Count 360, MPV 10.4, Immature Gran % (Auto) 0.900, Neut % (Auto) 85.0 H, Lymph %(Auto) 7.8 L, [place] % (Auto) 5.4, Eos % (Auto) 0.7, Baso % (Auto) 0.2, Absolute Neuts (auto) 9.1 H, Absolute Lymphs (auto) 0.83, Nucleated RBC % 0, Sodium 133, Potassium 4.7, Chloride 94 L, Carbon Dioxide 25.8, Anion Gap 12, BUN 72 H, Creatinine 2.55 H, Est GFR (MDRD) Non-Af 24 L, BUN/Creatinine Ratio 28.2 H, Glucose 129 H, Calcium 9.1, Troponin T High Sens 61 H* D, NT pro BNP II 4021 H 03/04/25 14:53: Urine Color Yellow, Urine Clarity Clear, Urine pH 6.0, Ur Specific [place] 1.010, Urine Protein 15 H, Urine Glucose (UA) Normal, Urine Ketones Negative, Urine Occult Blood 10 H, Urine Nitrite Negative, Urine Bilirubin Negative, Urine Urobilinogen Normal, Ur Leukocyte Esterase 25 H, UrineRBC 0-5 SEEN, Urine WBC 0- 5 SEEN, Ur Squamous Epith Cells 0-5 SEEN, Urine Bacteria 0 SEEN, Urine Mucus 0 SEEN Assessment & Plan Assessment/Plan (1) Exertional dyspnea: PLAN: Plan 89-year-old male who was recently discharged after management for NARENDRA following initiation of diuretics for acute decompensated heart failure, presents to the ED with concerns regarding leukocytosis noticed by PCP and also shortness of breath. At the time of ambulation in the ED his saturation dropped to 88% requiring oxygen and hence he is being admitted for further evaluation and workup. He was started on Zosyn for his prior bacteria seen on sputum culture and will continue the same. #Shortness of breath - Prior sputum culture showed Citrobacter, Enterobacter, Raoultella latter sensitive to Zosyn - Has progressive shortness of breath and decompensated while ambulating in the ED - Bronchopulmonary hygiene - Admit to [facility] for further evaluation management - PT/OT evaluation - May benefit from transfer to custodial facility at the time of discharge - Continue IV Zosyn for now # CKD -Creatinine and BUN are baseline - Continue home medications #Cardiomyopathy? Ischemic - Will continue losartan for now with close monitoring of the potassium - Continue home diuretic - Continue carvedilol 3.125 mg twice daily #Coronary artery disease - Continue with neurology and as needed sublingual NTG - EKG was reviewed and no features of ischemia, patient is clinically asymptomatic - Elevated high-sensitivity troponin is likely because of the NARENDRA #COPD #Acute bronchitis - Continue home medications for now -Respiratory therapy #Debility due to chronic illness - PT OT evaluation regarding placement to custodial facility - endorses need for further support at home with time of discharge #A-fib - Continue carvedilol and Eliquis #Abnormal body movements - MRI was normal, continue gabapentin based on the recent neurology evaluation next #Type 2 diabetes - Continue home insulin with glargine, aspart #AAA repair: Noted #GERD: Continue home medication #Restless leg syndrome: Continue ropinirole #Iron-deficiency anemia - Continue ferrous sulfate supplementation #DVT prophylaxis - Continue apixaban #Code discussion: Full code 03/04/252006 <Electronically signed by Hansel Gillis MD> Cosigner Signature (if applicable): CC: Dr. Hansel Gillis MD; Dr. Riaz Garrison MD~ Signed [facility] Work Phone: 1(340) 476-649105-29-2025 Discharge summary Author [facility]ie [facility] Note Date/Time March 04, 2025 3:58p m [facility] Medical Records Department [address] [place] [address] Emergency Department Summary 03/04/25 MR#: [id number] Acct: [id number] Name: DESIREE AMES Rep #:[id number] : 1935 89 From: Maddie Hendrickson DO PCP: Dr. Riaz Garrison MD Status:REG ER Location: ED HPI History of Present Illness Chief Complaint: General Illness Detail of Chief Complaint: Weakness and shortness of breath Informant: patient and spouse/S.O. Narrative Narrative: Patient presents to the emergency department complaint of generalized weakness and feeling short of breath. He complains of exertional dyspnea. He said 2 prior admissions 1 on February 14 for possible CHF and then 1 on February 19. It was thought he may also have a viral infection. He had a follow-up visit yesterday with primary care physician had some blood work and today was told to come in and get evaluated because there might be ongoing infection given that he had an elevated white blood cell count. Patient had been on steroids but finished several days ago. Patient denies chest pain. He does have a cough that is mostly nonproductive and at times does bring up some green phlegm. He denies urinary symptoms. [facility] Medical History Right carotid bruit Stable angina Kidney disease GERD (gastroesophageal reflux disease) Irregular heart beat Myocardial infarct Complicated urinary tract infection Urinary tract infection Colonic mass Controlled type 2 diabetes mellitus Acute respiratory insufficiency Chronic kidney disease Chronic anemia Bilateral edema of lower extremity Urinary retention Fatigue Pleural effusion (HFpEF) heart failure with preserved ejection fraction Pneumonia Colon polyp Lightheadedness Chronic constipation Anemia Obstructive sleep apnea Coronary artery disease Gastroesophageal reflux disease Allergic rhinitis Hyperlipidemia Urinary retention Wears hearing aid Wears dentures Wears glasses Cancer History of steroid therapy Ambulates with cane Walker as ambulation aid Arthritis Kidney stone Easy bruising Back pain Injury of back History of hiatal hernia Former smoker BiPAP (biphasic positive airway pressure) dependence Asthma Hoarseness Chronic cough Leg cramps History of pain when walking History of stress test History of heart attack History of irregular heartbeat Recurrent urinary tract infection ALMEIDA (dyspnea on exertion) Chest pain Right leg swelling Patellar bursitis of right knee Asthma-COPD overlap syndrome Abdominal aortic aneurysm (AAA) Peripheral vascular disease of extremity with claudication Rectus sheath hematoma Pre-syncope Essential (primary) hypertension Restless legs syndrome Daytime hypersomnia Somatic dysfunction of pelvic region DDD (degenerative disc disease), lumbar Overweight Seasonal allergies Carotid bruit Atherosclerotic heart disease of [place] coronary artery without angina pectoris PVD (peripheral vascular disease) COPD (chronic obstructive pulmonary disease) Home Medications ?Medication ?Instructions ?Recorded ?Last Taken ?Type handicap placcard #1 ea 09/28/19 Unknown Rx coenzyme Q10 100 mg capsule (Co 100 mg PO DAILY supple ment 05/03/20 01/29/25 History Q-10) cholecalciferol (vitamin D3) 100 100 mcg PO DAILY supp lement 11/03/20 01/29/25 History mcg (4,000 unit) tablet spacer #1 ea 01/12/21 Unknown Rx lancets #180 ea 07/18/23 Unknown Rx montelukast 10 mg tablet 10 mg PO QHS Respiratory #90 tabs 05/04/24 02/18/25 Rx atorvastatin 40 mg tablet 40 mg PO QODAY cholesterol # 45 tabs 05/13/24 01/27/25 Rx tamsulosin 0.4 mg capsule 0.4 mg PO DAILY prostate 01/22/25 History finasteride 5 mg tablet 5 mg PO DAILY prostate 06/2801/28/25 History insulin aspart U-100 100 unit/mL 10 unit (0.1 mL) subc ut TID 10/07/24 01/29/25 Rx subcutaneous cartridge (Novolog diabetes #15 mL PenFill U-100 Insulin aspart) handicap placard #1 ea 10/12/24 Unknown Rx budesonide-formoterol HFA 160 2 puff inhalation BID co pd #3 ea 10/16/24 01/28/25 Rx mcg-4.5 mcg/actuation aerosol inhaler (Symbicort) pantoprazole 40 mg tablet,delayed 40 mg PO DAILY reflu x #90 tabs 11/30/24 01/29/25 Rx release apixaban 2.5 mg tablet (Eliquis) 2.5 mg PO BID atrial fibrillation 12/14/24 02/19/25 Rx #180 tabs ipratropium bromide 21 mcg (0.03 2 spray intranasal BI D PRN allergy 12/14/24 Unknown History %) nasal spray symptoms blood sugar diagnostic (OneTouch #180 ea 12/21/24 Unkn own Rx Ultra Test strips) albuterol sulfate 90 mcg/actuation 2 inh inhalation Q4 H PRN shortness 01/04/25 01/28/25 Rx aerosol inhaler (Ventolin HFA) of breath or wheezing # 18 grams hydralazine 100 mg tablet 100 mg PO BID hypertension # 180 01/26/25 02/19/25 Rx tabs ranolazine 500 mg tablet,extended 500 mg PO BID chest pain #180 tabs 01/26/25 02/19/25 Rx release,12 hr ropinirole 1 mg tablet 3 mg (3 x 1 mg) PO QHS restl ess 01/26/25 02/18/25 Rx leg #90 tabs ipratropium 0.5 mg-albuterol 3 mg 3 ml inhalation TID SOB &/OR 01/29/25 01/28/25 History (2.5 mg base)/3 mL nebulization WHEEZING soln loratadine 10 mg tablet (Allergy 10 mg PO DAILY allerg ies 01/29/25 01/28/25 History Relief (loratadine)) 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,rug designer,cont #1 ea 02/01/25 Unknown Rx (FreeStyle [place] 3 [place]) 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 sensor (FreeStyle #3 ea 02/10/25 Unknown Rx Dwight 3 Plus Sensor device) insulin glargine 100 unit/mL (3 22 unit subcut DAILY d iabetes 02/15/25 Unknown History mL) subcutaneous pen (Lantus Solostar U-100 Insulin) nitroglycerin 0.4 mg sublingual 0.4 mg sublingual Q5-1 5M PRN chest 02/15/25 Unknown Rx tablet (Nitrostat) pain #25 tabs pen needle, diabetic 31 gauge x #100 ea 02/15/25 Unkno wn Rx 1/ (Unifine Pentips) aspirin 81 mg tablet,delayed 81 mg PO BREAKFAST heart health #0 02/18/25 Unknown Rx release tabs ferrous sulfate 325 mg (65 mg 325 mg PO DAILY low iron #30 tabs 02/18/25 Unknown Rx iron) tablet (FeroSul) lactulose 10 gram/15 mL oral 20 g (30 mL) PO DAILY con stipation 02/18/25 Unknown Rx solution #946 mL carvedilol 6.25 mg tablet 6.25 mg PO BIDCM #60 tabs Unknown Rx dextromethorphan-guaifenesin 10 5 ml PO Q4H PRN PRN Co ugh #0 mL 02/22/25 Unknown Rx mg-100 mg/5 mL oral syrup furosemide 40 mg tablet 40 mg PO UD #90 tabs 5 Unknown Rx prednisone 20 mg tablet 40 mg (2 x 20 mg) PO DAILY # 10 tabs 02/22/25 Unknown Rx potassium chloride 10 mEq 20 meq (2 x 10 mEq) PO BIDCM 03/02/25 Unknown Rx tablet,extended release(part/cryst) supplement #60 tab s Allergy/AdvReac Type Severity Reaction Status Date / Time cilostazol (From Pletal) Allergy Unknown Verified 03/04/25 12:51 felodipine Allergy Hives Verified 03/04/25 12:51 levofloxacin Allergy Hives Verified 03/04/25 12:51 Sulfa (Sulfonamide Allergy Unknown Verified 03/04/25 12:51 Antibiotics) isosorbide AdvReac Intermediate low BP Verified 03/04/25 12:51 Family History Father Diabetes Cancer Prostate cancer Mother Dementia Brother Parkinsons Brother Cancer H/O vascular surgery Surgical History History of appendectomy History of surgical procedure H/O vascular surgery History of surgical procedure History of transurethral resection of prostate History of endarterectomy (07/2018) History of left heart catheterization (03/2014) History of coronary artery stent placement (02/17/08) History of vascular surgery (08/2018) History of hernia repair H/O aortic aneurysm repair (11/1998) Social History household members: spouse 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 status: retired current occupation: Responsible [employer] Smoking Status: Former smoker quit date: 08/07/08 pack-years: 2 Tobacco: How many years used: 52 Electronic Cigarette Use: not used how long ago did patient quit smokin years ago alcohol intake: current alcohol intake frequency: holidays/special occasions only details: hx of alcohol abuse substance use type: does not use caffeine: No what type of physical activity do you participate in: other details: Nustep frequency: 5-6 times per week duration: 15-30 minutes/day seatbelt use: always do you feel safe at home: Yes ROS ROS ED Review of Systems ROS Unobtainable: other Constitutional Constitutional ED: Reports lethargy; Denies chills, fever(s), sweats or weight loss Eyes Eyes: Denies blurry vision, change in vision or diplopia ENT ENT ED: Denies rhinorrhea or sore throat Cardiovascular Cardiovascular: Denies chest pain, orthopnea or racing heartbeat Respiratory/Chest Respiratory/Chest: Reports cough, dyspnea and dyspnea on exertion; Denies orthopnea or sputum Gastrointestinal Gastrointestinal: Denies abdominal pain, diarrhea, nausea or vomiting Genitourinary Genitourinary ED: Denies dysuria, hematuria or urinary frequency Musculoskeletal Musculoskeletal: Denies arthralgias, back pain, myalgias or neck pain Integumentary Denies abscess, Abrasions or rash Neurologic Neurologic: Denies headache(s) or weakness Psychiatric Psychiatric: Denies anxiety, depression or suicidal thoughts Endocrine Endocrinology: Denies polydipsia, polyphagia or polyuria Hematologic/Lymphatic Hematologic/Lymphatic: Denies easy bleeding, easy bruising or lymphadenopathy Allergic/Immunologic Allergic/Immunologic ED: Denies mouth swelling, tongue swelling or urticaria EXAM Physical Exam Const Vital Signs: 03/04/25 12:47 03/04/25 12:47 03/04/25 14:47 Temperature 99 F Temperature Source Temporal Pulse Rate 63 74 Respiratory Rate 14 16 Respiratory Pattern Irregular Blood Pressure 113/65 115/59 L Blood Pressure Mean 81 77 Pulse Ox 95 98 Oxygen Delivery Method Room Air Positive well nourished and well developed General Appearance ED: well developed and NAD HEENT Reports TM's clear and moist mucous membranes normocephalic and atraumatic; Negative for trauma or tenderness Tympanic Membrane ED: Yes TM's clear Eyes PERRL and EOMs intact bilaterally General Eye ED: Negative for pale conjunctiva or scleral icterus Neck no lymphadenopathy, supple and no JVD General: Negative for tenderness Chest Wall inspection of chest normal and palpation of chest normal Chest: Negative for tenderness Resp normal respiratory effort Resp Narrative: Patient with coarse rhonchi bilaterally with some faint expiratory wheezes. Effort and Inspection: Negative for respiratory distress or pain with movement Auscultation: wheezes; Negative for rhonchi or diminished lung sounds Cardio regular rate, regular rhythm, S1 normal heart sound, S2 normal heart sound and no murmurs Peripheral Pulses: pulses 2+ throughout GI normal to inspection, nondistended, normoactive bowel sounds, soft to palpation,non-tender, non-distended and no masses Back/Spine no CVA tenderness and no thoracic nor lumbar tenderness Extremity normal to inspection Extremity Narrative: +2 edema both lower extremity General Extremety ED: Yes edema General Extremity: edema Neuro oriented x3, CN's II-XII intact bilaterally, no sensory deficits noted and gait normal Sensorium / Orientation: awake, alert, oriented to person, oriented to place andoriented to time Motor Exam: strength 5/5 throughout and strength abnormal Psych mental status grossly normal Skin no rashes or lesions noted and no wounds MDM MDM MDM Narrative Medical decision making narrative: Patient presents with exertional dyspnea and continued cough. He has had several admissions this month 1 for CHF and another 1 for some hyperkalemia. Had an elevated white blood cell count yesterday and was advised to come back [facility] emergency department for concern for possible ongoing infection. Patient states that he was diagnosed with a virus with last admission but also had a sputum culture that he does not know the results of. He complains of significant exertional dyspnea and can only walk about 10 feet before having to stop for being winded. Patient to see a grants specialist Dr. Painter. He denies chest pain. Currently on apixaban. With his last admission he had an echo thatshowed ejection fraction of 40% with enlarged left atrium. IV line established. CBC with differential obtained showed white, 10.7 with hemoglobin 11.3 and platelet count of 360. Chemistries unremarkable. BUN 72 and creatinine 2.55. Urinalysis was negative. BT ELECTROCARDIOGRAPH REPAIRER was 4021. Patient had a chest x- ray performed as an outpatient earlier today that showed findings consistent with pulmonary fibrosis worse on the right lung. Blood cultures ordered here. Reviewed patient's sputum results and it grew out 3 different bacteria including Enterobacter, Citrobacter, and Raoultella plantica. Started patient on Zosyn. Will ambulate patient with pulse ox. Will discuss with hospitalist to evaluate for admission. With ambulation patient's O2 sat dropped to 88% on room air and he was very dyspneic. Lab Data Attestation: I reviewed the patient's lab results. Labs: Laboratory Results - last 24 hr 03/04/25 03/04/25 13:46 14:53 WBC 10.7 RBC 3.25 L Hgb 11.3 L Hct 31.0 L MCV 95.4 H MCH 34.8 H MCHC 36.5 H D RDW Std Deviation 53.6 H RDW Coeff of Justin 17.2 H Plt Count 360 MPV 10.4 Immature Gran % (Auto) 0.900 Neut % (Auto) 85.0 H Lymph % (Auto) 7.8 L [place] % (Auto) 5.4 Eos % (Auto) 0.7 Baso % (Auto) 0.2 Absolute Neuts (auto) 9.1 H Absolute Lymphs (auto) 0.83 Nucleated RBC % 0 Sodium 133 Potassium 4.7 Chloride 94 L Carbon Dioxide 25.8 Anion Gap 12 BUN 72 H Creatinine 2.55 H Est GFR (MDRD) Non-Af 24 L BUN/Creatinine Ratio 28.2 H Glucose 129 H Calcium 9.1 NT pro BNP II 4021 H Urine Color Yellow Urine Clarity Clear Urine pH 6.0 Ur Specific [place] 1.010 Urine Protein 15 H Urine Glucose (UA) Normal Urine Ketones Negative Urine Occult Blood 10 H Urine Nitrite Negative Urine Bilirubin Negative Urine Urobilinogen Normal Ur Leukocyte Esterase 25 H Urine RBC 0-5 SEEN Urine WBC 0-5 SEEN Ur Squamous Epith Cells 0-5 SEEN Urine Bacteria 0 SEEN Urine Mucus 0 SEEN Radiography Chest X-Ray - ED: 1 View, Read by ED Physician, Read by Radiologist and Cardiomegaly Diagnostic Testing: Patient had a two-view chest x-ray obtained today and I was able to evaluate theimages and on my interpretation patient has increased markings in the right lower lobe and left lower lobe concerning for infiltrate. Radiologist felt changes likely consistent with chronic interstitial fibrosis. EKG Initial EKG: Attestation: I personally reviewed and interpreted this EKG as follows: Comments: Atrial flutter with ventricular rate of [address] changes Discharge Plan Dx/Rx/DC Orders Clinical Impression: COPD exacerbation, Exertional dyspnea, Hypoxemia Disposition Disposition: Acute Care Hospital [facility] What to do if you have Problems For any increased pain, shortness of breath, bleeding, nausea or vomiting, chestpain, or any unexpected problems, contact your Primary Care Provider. Call [facility] ([phone]) or report to the closest Emergency Room. Call 911 if necessary. 03/04/25 1552 <Electronically signed by Maddie Hendrickson DO> Cosigner Signature (if applicable): CC: Dr. Riaz Garrison MD ~ Signed [facility] Work Phone: [phone] Discharge summary Author [facility] Note Date/Time March 04, 2025 3:58p m [facility] Medical Records Department [address] [place] [address] Emergency Department Summary 03/04/25 MR#: [id number] Acct: [id number] Name: DESIREE AMES Rep #:[id number] : 1935 89 From: Maddie Hendrickson DO PCP: Dr. Riaz Garrison MD Status:REG ER Location: ED HPI History of Present Illness Chief Complaint: General Illness Detail of Chief Complaint: Weakness and shortness of breath Informant: patient and spouse/S.O. Narrative Narrative: Patient presents to the emergency department complaint of generalized weakness and feeling short of breath. He complains of exertional dyspnea. He said 2 prior admissions 1 on February 14 for possible CHF and then 1 on February 19. It was thought he may also have a viral infection. He had a follow-up visit yesterday with primary care physician had some blood work and today was told to come in and get evaluated because there might be ongoing infection given that he had an elevated white blood cell count. Patient had been on steroids but finished several days ago. Patient denies chest pain. He does have a cough that is mostly nonproductive and at times does bring up some green phlegm. He denies urinary symptoms. [facility] Medical History Right carotid bruit Stable angina Kidney disease GERD (gastroesophageal reflux disease) Irregular heart beat Myocardial infarct Complicated urinary tract infection Urinary tract infection Colonic mass Controlled type 2 diabetes mellitus Acute respiratory insufficiency Chronic kidney disease Chronic anemia Bilateral edema of lower extremity Urinary retention Fatigue Pleural effusion (HFpEF) heart failure with preserved ejection fraction Pneumonia Colon polyp Lightheadedness Chronic constipation Anemia Obstructive sleep apnea Coronary artery disease Gastroesophageal reflux disease Allergic rhinitis Hyperlipidemia Urinary retention Wears hearing aid Wears dentures Wears glasses Cancer History of steroid therapy Ambulates with cane Walker as ambulation aid Arthritis Kidney stone Easy bruising Back pain Injury of back History of hiatal hernia Former smoker BiPAP (biphasic positive airway pressure) dependence Asthma Hoarseness Chronic cough Leg cramps History of pain when walking History of stress test History of heart attack History of irregular heartbeat Recurrent urinary tract infection ALMEIDA (dyspnea on exertion) Chest pain Right leg swelling Patellar bursitis of right knee Asthma-COPD overlap syndrome Abdominal aortic aneurysm (AAA) Peripheral vascular disease of extremity with claudication Rectus sheath hematoma Pre-syncope Essential (primary) hypertension Restless legs syndrome Daytime hypersomnia Somatic dysfunction of pelvic region DDD (degenerative disc disease), lumbar Overweight Seasonal allergies Carotid bruit Atherosclerotic heart disease of [place] coronary artery without angina pectoris PVD (peripheral vascular disease) COPD (chronic obstructive pulmonary disease) Home Medications ?Medication ?Instructions ?Recorded ?Last Taken ?Type handicap placcard #1 ea 09/28/19 Unknown Rx coenzyme Q10 100 mg capsule (Co 100 mg PO DAILY supple ment 05/03/20 01/29/25 History Q-10) cholecalciferol (vitamin D3) 100 100 mcg PO DAILY supp lement 11/03/20 01/29/25 History mcg (4,000 unit) tablet spacer #1 ea 01/12/21 Unknown Rx lancets #180 ea 07/18/23 Unknown Rx montelukast 10 mg tablet 10 mg PO QHS Respiratory #90 tabs 05/04/24 02/18/25 Rx atorvastatin 40 mg tablet 40 mg PO QODAY cholesterol # 45 tabs 05/13/24 01/27/25 Rx tamsulosin 0.4 mg capsule 0.4 mg PO DAILY prostate 01/22/25 History finasteride 5 mg tablet 5 mg PO DAILY prostate 06/2801/28/25 History insulin aspart U-100 100 unit/mL 10 unit (0.1 mL) subc ut TID 10/07/24 01/29/25 Rx subcutaneous cartridge (Novolog diabetes #15 mL PenFill U-100 Insulin aspart) handicap placard #1 ea 10/12/24 Unknown Rx budesonide-formoterol HFA 160 2 puff inhalation BID co pd #3 ea 10/16/24 01/28/25 Rx mcg-4.5 mcg/actuation aerosol inhaler (Symbicort) pantoprazole 40 mg tablet,delayed 40 mg PO DAILY reflu x #90 tabs 11/30/24 01/29/25 Rx release apixaban 2.5 mg tablet (Eliquis) 2.5 mg PO BID atrial fibrillation 12/14/24 02/19/25 Rx #180 tabs ipratropium bromide 21 mcg (0.03 2 spray intranasal BI D PRN allergy 12/14/24 Unknown History %) nasal spray symptoms blood sugar diagnostic (OneTouch #180 ea 12/21/24 Unkn own Rx Ultra Test strips) albuterol sulfate 90 mcg/actuation 2 inh inhalation Q4 H PRN shortness 01/04/25 01/28/25 Rx aerosol inhaler (Ventolin HFA) of breath or wheezing # 18 grams hydralazine 100 mg tablet 100 mg PO BID hypertension # 180 01/26/25 02/19/25 Rx tabs ranolazine 500 mg tablet,extended 500 mg PO BID chest pain #180 tabs 01/26/25 02/19/25 Rx release,12 hr ropinirole 1 mg tablet 3 mg (3 x 1 mg) PO QHS restl ess 01/26/25 02/18/25 Rx leg #90 tabs ipratropium 0.5 mg-albuterol 3 mg 3 ml inhalation TID SOB &/OR 01/29/25 01/28/25 History (2.5 mg base)/3 mL nebulization WHEEZING soln loratadine 10 mg tablet (Allergy 10 mg PO DAILY allerg ies 01/29/25 01/28/25 History Relief (loratadine)) 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,rug designer,cont #1 ea 02/01/25 Unknown Rx (FreeStyle Dwight 3 [place]) 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 sensor (FreeStyle #3 ea 02/10/25 Unknown Rx Dwight 3 Plus Sensor device) insulin glargine 100 unit/mL (3 22 unit subcut DAILY d iabetes 02/15/25 Unknown History mL) subcutaneous pen (Lantus Solostar U-100 Insulin) nitroglycerin 0.4 mg sublingual 0.4 mg sublingual Q5-1 5M PRN chest 02/15/25 Unknown Rx tablet (Nitrostat) pain #25 tabs pen needle, diabetic 31 gauge x #100 ea 02/15/25 Unkno wn Rx / (Unifine Pentips) aspirin 81 mg tablet,delayed 81 mg PO BREAKFAST heart health #0 02/18/25 Unknown Rx release tabs ferrous sulfate 325 mg (65 mg 325 mg PO DAILY low iron #30 tabs 02/18/25 Unknown Rx iron) tablet (FeroSul) lactulose 10 gram/15 mL oral 20 g (30 mL) PO DAILY con stipation 02/18/25 Unknown Rx solution #946 mL carvedilol 6.25 mg tablet 6.25 mg PO BIDCM #60 tabs Unknown Rx dextromethorphan-guaifenesin 10 5 ml PO Q4H PRN PRN Co ugh #0 mL 02/22/25 Unknown Rx mg-100 mg/5 mL oral syrup furosemide 40 mg tablet 40 mg PO UD #90 tabs 5 Unknown Rx prednisone 20 mg tablet 40 mg (2 x 20 mg) PO DAILY # 10 tabs 02/22/25 Unknown Rx potassium chloride 10 mEq 20 meq (2 x 10 mEq) PO BIDCM 03/02/25 Unknown Rx tablet,extended release(part/cryst) supplement #60 tab s Allergy/AdvReac Type Severity Reaction Status Date / Time cilostazol (From Pletal) Allergy Unknown Verified 03/04/25 12:51 felodipine Allergy Hives Verified 03/04/25 12:51 levofloxacin Allergy Hives Verified 03/04/25 12:51 Sulfa (Sulfonamide Allergy Unknown Verified 03/04/25 12:51 Antibiotics) isosorbide AdvReac Intermediate low BP Verified 03/04/25 12:51 Family History Father Diabetes Cancer Prostate cancer Mother Dementia Brother Parkinsons Brother Cancer H/O vascular surgery Surgical History History of appendectomy History of surgical procedure H/O vascular surgery History of surgical procedure History of transurethral resection of prostate History of endarterectomy (07/2018) History of left heart catheterization (03/2014) History of coronary artery stent placement (02/17/08) History of vascular surgery (08/2018) History of hernia repair H/O aortic aneurysm repair (11/1998) Social History household members: spouse 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 status: 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 Smoking Status: Former smoker quit date: 08/07/08 pack-years: 2 Tobacco: How many years used: 52 Electronic Cigarette Use: not used how long ago did patient quit smokin years ago alcohol intake: current alcohol intake frequency: holidays/special occasions only details: hx of alcohol abuse substance use type: does not use caffeine: No what type of physical activity do you participate in: other details: Nustep frequency: 5-6 times per week duration: 15-30 minutes/day seatbelt use: always do you feel safe at home: Yes ROS ROS ED Review of Systems ROS Unobtainable: other Constitutional Constitutional ED: Reports lethargy; Denies chills, fever(s), sweats or weight loss Eyes Eyes: Denies blurry vision, change in vision or diplopia ENT ENT ED: Denies rhinorrhea or sore throat Cardiovascular Cardiovascular: Denies chest pain, orthopnea or racing heartbeat Respiratory/Chest Respiratory/Chest: Reports cough, dyspnea and dyspnea on exertion; Denies orthopnea or sputum Gastrointestinal Gastrointestinal: Denies abdominal pain, diarrhea, nausea or vomiting Genitourinary Genitourinary ED: Denies dysuria, hematuria or urinary frequency Musculoskeletal Musculoskeletal: Denies arthralgias, back pain, myalgias or neck pain Integumentary Denies abscess, Abrasions or rash Neurologic Neurologic: Denies headache(s) or weakness Psychiatric Psychiatric: Denies anxiety, depression or suicidal thoughts Endocrine Endocrinology: Denies polydipsia, polyphagia or polyuria Hematologic/Lymphatic Hematologic/Lymphatic: Denies easy bleeding, easy bruising or lymphadenopathy Allergic/Immunologic Allergic/Immunologic ED: Denies mouth swelling, tongue swelling or urticaria EXAM Physical Exam Const Vital Signs: 03/04/25 12:47 03/04/25 12:47 03/04/25 14:47 Temperature 99 F Temperature Source Temporal Pulse Rate 63 74 Respiratory Rate 14 16 Respiratory Pattern Irregular Blood Pressure 113/65 115/59 L Blood Pressure Mean 81 77 Pulse Ox 95 98 Oxygen Delivery Method Room Air Positive well nourished and well developed General Appearance ED: well developed and NAD HEENT Reports TM's clear and moist mucous membranes normocephalic and atraumatic; Negative for trauma or tenderness Tympanic Membrane ED: Yes TM's clear Eyes PERRL and EOMs intact bilaterally General Eye ED: Negative for pale conjunctiva or scleral icterus Neck no lymphadenopathy, supple and no JVD General: Negative for tenderness Chest Wall inspection of chest normal and palpation of chest normal Chest: Negative for tenderness Resp normal respiratory effort Resp Narrative: Patient with coarse rhonchi bilaterally with some faint expiratory wheezes. Effort and Inspection: Negative for respiratory distress or pain with movement Auscultation: wheezes; Negative for rhonchi or diminished lung sounds Cardio regular rate, regular rhythm, S1 normal heart sound, S2 normal heart sound and no murmurs Peripheral Pulses: pulses 2+ throughout GI normal to inspection, nondistended, normoactive bowel sounds, soft to palpation,non-tender, non-distended and no masses Back/Spine no CVA tenderness and no thoracic nor lumbar tenderness Extremity normal to inspection Extremity Narrative: +2 edema both lower extremity General Extremety ED: Yes edema General Extremity: edema Neuro oriented x3, CN's II-XII intact bilaterally, no sensory deficits noted and gait normal Sensorium / Orientation: awake, alert, oriented to person, oriented to place andoriented to time Motor Exam: strength 5/5 throughout and strength abnormal Psych mental status grossly normal Skin no rashes or lesions noted and no wounds MDM MDM MDM Narrative Medical decision making narrative: Patient presents with exertional dyspnea and continued cough. He has had several admissions this month 1 for CHF and another 1 for some hyperkalemia. Had an elevated white blood cell count yesterday and was advised to come back [facility] emergency department for concern for possible ongoing infection. Patient states that he was diagnosed with a virus with last admission but also had a sputum culture that he does not know the results of. He complains of significant exertional dyspnea and can only walk about 10 feet before having to stop for being winded. Patient to see a grants specialist Dr. Painter. He denies chest pain. Currently on apixaban. With his last admission he had an echo thatshowed ejection fraction of 40% with enlarged left atrium. IV line established. CBC with differential obtained showed white, 10.7 with hemoglobin 11.3 and platelet count of 360. Chemistries unremarkable. BUN 72 and creatinine 2.55. Urinalysis was negative. BT ELECTROCARDIOGRAPH REPAIRER was 4021. Patient had a chest x- ray performed as an outpatient earlier today that showed findings consistent with pulmonary fibrosis worse on the right lung. Blood cultures ordered here. Reviewed patient's sputum results and it grew out 3 different bacteria including Enterobacter, Citrobacter, and Raoultella plantica. Started patient on Zosyn. Will ambulate patient with pulse ox. Will discuss with hospitalist to evaluate for admission. With ambulation patient's O2 sat dropped to 88% on room air and he was very dyspneic. Lab Data Attestation: I reviewed the patient's lab results. Labs: Laboratory Results - last 24 hr 03/04/25 03/04/25 13:46 14:53 WBC 10.7 RBC 3.25 L Hgb 11.3 L Hct 31.0 L MCV 95.4 H MCH 34.8 H MCHC 36.5 H D RDW Std Deviation 53.6 H RDW Coeff of Justin 17.2 H Plt Count 360 MPV 10.4 Immature Gran % (Auto) 0.900 Neut % (Auto) 85.0 H Lymph % (Auto) 7.8 L [place] % (Auto) 5.4 Eos % (Auto) 0.7 Baso % (Auto) 0.2 Absolute Neuts (auto) 9.1 H Absolute Lymphs (auto) 0.83 Nucleated RBC % 0 Sodium 133 Potassium 4.7 Chloride 94 L Carbon Dioxide 25.8 Anion Gap 12 BUN 72 H Creatinine 2.55 H Est GFR (MDRD) Non-Af 24 L BUN/Creatinine Ratio 28.2 H Glucose 129 H Calcium 9.1 NT pro BNP II 4021 H Urine Color Yellow Urine Clarity Clear Urine pH 6.0 Ur Specific [place] 1.010 Urine Protein 15 H Urine Glucose (UA) Normal Urine Ketones Negative Urine Occult Blood 10 H Urine Nitrite Negative Urine Bilirubin Negative Urine Urobilinogen Normal Ur Leukocyte Esterase 25 H Urine RBC 0-5 SEEN Urine WBC 0-5 SEEN Ur Squamous Epith Cells 0-5 SEEN Urine Bacteria 0 SEEN Urine Mucus 0 SEEN Radiography Chest X-Ray - ED: 1 View, Read by ED Physician, Read by Radiologist and Cardiomegaly Diagnostic Testing: Patient had a two-view chest x-ray obtained today and I was able to evaluate theimages and on my interpretation patient has increased markings in the right lower lobe and left lower lobe concerning for infiltrate. Radiologist felt changes likely consistent with chronic interstitial fibrosis. EKG Initial EKG: Attestation: I personally reviewed and interpreted this EKG as follows: Comments: Atrial flutter with ventricular rate of [address] changes Discharge Plan Dx/Rx/DC Orders Clinical Impression: COPD exacerbation, Exertional dyspnea, Hypoxemia Disposition Disposition: Acute Care Hospital [facility] What to do if you have Problems For any increased pain, shortness of breath, bleeding, nausea or vomiting, chestpain, or any unexpected problems, contact your Primary Care Provider. Call [facility] ([phone]) or report to the closest Emergency Room. Call 911 if necessary. 03/04/25 1558 <Electronically signed by Maddie Hendrickson DO> Cosigner Signature (if applicable): CC: Dr. Riaz Garrison MD ~ Signed [facility] Work Phone: [phone]) 651-466405-29-2025 Progress note Author Puneet Dumas [facility] Note Date/Time March 04, 2025 12:36 pm [facility] [address], [address] [place] [address] OFFICE VISIT Date of Service: 03/04/25 MR#: [id number] Acct: [id number] Name: DESIREE AMES #: [id number] : 1935 Provider: DEBI Lomeli Age/Sex: 89/M Location: [facility] Status: Signed Intake Vital Signs 02/22/25 08:52 03/04/25 11:55 Height 5 ft 8 in BP 140/84 H Blood Pressure Location Rt brachial Position Sitting Respiration 17 Pulse 74 Pulse Source NIBP Temp 98.1 F Temp Source Oral Pulse Oximetry (%) 95 Oxygen Delivery Method room air Intake Visit Reasons: COUGH, CONCERN FOR INFECTION ON L ARM Chief Complaint: cough, worsening SOB, left arm wound 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 infused 3 times with Iron and discharged on Prednisone along with other cardiac meds. no ATB. pt states SOB and cough are worsening since being home. denies fever. wound left forearm x2 rinsed with sterile saline, upon removing bandage yellow slimy substance on bandaids. admits bandage has not been changed in a couple days. no active drainage noted upon rinsing. [facility] Medical History Right carotid bruit Stable angina Kidney disease GERD (gastroesophageal reflux disease) Irregular heart beat Myocardial infarct Complicated urinary tract infection Urinary tract infection Colonic mass Controlled type 2 diabetes mellitus Acute respiratory insufficiency Chronic kidney disease Chronic anemia Bilateral edema of lower extremity Urinary retention Fatigue Pleural effusion (HFpEF) heart failure with preserved ejection fraction Pneumonia Colon polyp Lightheadedness Chronic constipation Anemia Obstructive sleep apnea Coronary artery disease Gastroesophageal reflux disease Allergic rhinitis Hyperlipidemia Urinary retention Wears hearing aid Wears dentures Wears glasses Cancer History of steroid therapy Ambulates with cane Walker as ambulation aid Arthritis Kidney stone Easy bruising Back pain Injury of back History of hiatal hernia Former smoker BiPAP (biphasic positive airway pressure) dependence Asthma Hoarseness Chronic cough Leg cramps History of pain when walking History of stress test History of heart attack History of irregular heartbeat Recurrent urinary tract infection ALMEIDA (dyspnea on exertion) Chest pain Right leg swelling Patellar bursitis of right knee Asthma-COPD overlap syndrome Abdominal aortic aneurysm (AAA) Peripheral vascular disease of extremity with claudication Rectus sheath hematoma Pre-syncope Essential (primary) hypertension Restless legs syndrome Daytime hypersomnia Somatic dysfunction of pelvic region DDD (degenerative disc disease), lumbar Overweight Seasonal allergies Carotid bruit Atherosclerotic heart disease of [place] coronary artery without angina pectoris PVD (peripheral vascular disease) COPD (chronic obstructive pulmonary disease) Surgical History History of appendectomy History of surgical procedure H/O vascular surgery History of surgical procedure History of transurethral resection of prostate History of endarterectomy (07/2018) History of left heart catheterization (03/2014) History of coronary artery stent placement (02/17/08) History of vascular surgery (08/2018) History of hernia repair H/O aortic aneurysm repair (11/1998) Family History Father Diabetes Cancer Prostate cancer Mother Dementia Brother Parkinsons Brother Cancer H/O vascular surgery Social History household members: spouse 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 status: 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 Smoking Status: Former smoker quit date: 08/07/08 pack-years: 2 Tobacco: How many years used: 52 Electronic Cigarette Use: not used how long ago did patient quit smokin years ago alcohol intake: current alcohol intake frequency: holidays/special occasions only details: hx of alcohol abuse substance use type: does not use caffeine: No what type of physical activity do you participate in: other details: Nustep frequency: 5-6 times per week duration: 15-30 minutes/day seatbelt use: always do you feel safe at home: Yes HPI HPI Chief Complaint: cough, worsening SOB, left arm wound Details: DESIREE AMES, is a 89 M who presents to the office today for complaint of cough, shortness of breath and left arm wound. Patient states he has been hospitalized twice in the last month with no obvious chest or lung infection. Patient states he was discharged on prednisone. Since then he has had worseningshortness of breath particular today. He also recently had blood work ordered by his primary care which did show an elevation in his neutrophils as well as white blood cell count. Patient does have a complex medical history including COPD, CHF, CKD and diabetes along with several others. He denies any fever, chills or sweats. No nausea, vomiting or diarrhea. No other associated symptoms or alleviating/aggravating factors. ROS Const Constitutional: No other (As above) Exam Const General: cooperative and well developed HENWY Head: normal to inspection and atraumatic Ears: hearing grossly normal bilaterally Nose: nasal discharge clear Face and sinus: normal facial exam Mouth: oral mucosae normal Throat: abnormal tonsil bilaterally hypertrophy 1+ Resp Effort & Inspection: normal respiratory effort, no audible wheezes and cough Auscultation: Bilateral: Diminished Lung Sounds Cardio Rate: regular rate Rhythm: abnormal rhythm irregularly irregular Neuro General: patient alert and CN's II-XI intact bilaterally Psych Appearance: grossly normal Mental Status: mental status grossly normal Coding Level of Care Code Off vis,new,level 4 Diagnoses History of COPD Z87.09 History of diabetes mellitus Z86.39 Chronic kidney disease N18.9 CHF (congestive heart failure) I50.9 Acute cough R05.1 Assessment and Plan Assessment and Plan (1) History of COPD: Status: Chronic (2) History of diabetes mellitus: Status: Acute (3) Chronic kidney disease: Status: Chronic (4) CHF (congestive heart failure): Status: Acute (5) Acute cough: Status: Acute Orders: Orders Chest PA and Lateral Today R05.9 - Cough, unspecified Plan 2 view chest x-ray read Demopulos of finding no acute cardiopulmonary disease. With the patient's complex medical history along with blood work showing neutrophilia as well as increased white cell count and without specific etiologypatient has been advised to report to the ED for further evaluation and treatment. Patient and who is transporting him agree stating they will go directly to the ED. Both verbalized understanding and agreement with all the above. Clinical Quality Measures Falls Risk Screening/Assistive Devices Have you fallen in the past year?: No 03/04/25 1236 <Electronically signed by Puneet Piter P A PA> Date _ Puneet Humphrey Signature: Date (if applicable) CC: ~ [facility] Work Phone: 1(187) 324-802505-22-2025 NoteHNO ID: [id number] Author: VIPUL RICHARD, ? Service: ? Author Type: Physician Type: Progress Notes Filed: 02/26/2025 07:25 Note Text: Last saw pcp: not in chart Subjective: Patient presents to clinic c/o painful toenails. They state that the nails are especially painful with shoe gear and pressure. Patient states that nails b/l hallux are painful. Patient admits to being diabetic. No other pedal complaints at this time. Patient states no change in medications or medical history since last visit. Objective: Patient presents to clinic ambulating in [facility] Vasc: DP and PT pulses are [...] mellitus (HCC) (I73.9) PAD (peripheral artery disease) Plan: Patient was seen and evaluated. Nails 1-5 bilateral were debrided in length and thickness. Patient was instructed on the continued importance of diabetic foot care along with proper diet and keeping their blood sugar under control to prevent complications. I stressed the importance of avoiding barefoot walking, wearing good shoes and inspection of feet Patient is to RTC in 3-4 months. Vipul Richard, [facility]05-19-2025 Discharge summary Author Inocencio Perkins [facility] Note Date/Time February 22, 2025 3:16p [facility] Medical Records Department [address] [place] [address] Instructions for Home/Discharge Instructions 02/22/25 1504 MR#: [id number] Acct: [id number] Name: DESIREE AMES Rep #:[id number] : 1935 89 From: Inocencio Perkins DO PCP: Dr. Riaz Garrison MD Status:ADM IN Discharge Instructions Diet Discharge Diet: 1800 Calorie Control Diet DC O2, CPAP, BIPAP needs Home O2 Discharge instructions: No Dressing / Incision Discharge Activity: Return to Normal Activity Weight Bearing Status: Full weight bearing Follow Up Care Test Results: Test results from this visit will be discussed in further detail at your follow- up appointment, if applicable. Discharge Plan Admission Admit Date/Time: 02/19/25 19:52 Primary Reason for Your Visit: Exacerbation of COPD, parainfluenza 3 virus infection, CHF Attending Provider: Inocencio Perkins Primary Care Provider: Riaz Garrison Consulting Providers: Hansel Gillis; Tracey Orantes Discharge Orders/Prescriptions Prescriptions: New furosemide 40 mg Tablet 40 mg PO UD Qty: 90 0RF Rx Instructions: 2 tablets every morning, 1 tablet at 4:00 daily carvedilol 6.25 mg Tablet 6.25 mg PO BIDCM Qty: 60 0RF dextromethorphan-guaifenesin 10-100 mg/5 mL Syrup 5 ml PO Q4H PRN PRN (Reason: Cough) Qty: 0 0RF prednisone 20 mg tablet 40 mg PO DAILY Qty: 10 0RF Rx Instructions: 2 tablets daily for 3 days, then 1 tablet a day for 4 days then stop Continued (DME) handicap placcard Qty: 1 0RF Rx Instructions: Lifetime: debility coenzyme Q10 [Co Q-10] 100 mg capsule 100 mg PO DAILY cholecalciferol (vitamin D3) 100 mcg (4,000 unit) tablet 100 mcg PO DAILY (DME) spacer See Rx Instructions .ROUTE .MEDSUPPLY Qty: 1 0RF Rx Instructions: As directed (DME) lancets [facility] See Rx Instructions .Route Qty: 180 1RF Rx Instructions: twice daily tamsulosin 0.4 mg capsule 0.4 mg PO DAILY Patient Comments: PT TAKES SOMETIMES pantoprazole 40 mg tablet,delayed release (DR/EC) 40 mg PO DAILY Qty: 90 1RF (DME) FreeStyle [place] [address] [place] [facility] See Rx Instructions .Route Qty: 1 0RF Rx Instructions: As directed finasteride 5 mg tablet 5 mg PO DAILY Patient Comments: PT TAKES AT NIGHT ipratropium bromide 21 mcg (0.03 %) spray,non-aerosol 2 spray intranasal BID PRN (Reason: allergy symptoms) Rx Instructions: administer into each nostril ipratropium-albuterol 0.5 mg-3 mg(2.5 mg base)/3 mL solution for nebulization 3 ml inhalation TID Rx Instructions: 3 mL inhaled; loratadine [Allergy Relief (loratadine)] 10 mg tablet 10 mg PO DAILY insulin glargine [Lantus Solostar U-100 Insulin] 100 unit/mL (3 mL) insulin pen 22 unit subcut DAILY aspirin 81 mg Tablet,Delayed Release (Dr/Ec) 81 mg PO BREAKFAST Qty: 0 0RF lactulose 10 gram/15 mL Solution 20 g PO DAILY Qty: 946 0RF potassium chloride 10 mEq Tablet,Er Particles/Crystals 20 meq PO BIDCM Qty: 60 0RF ferrous sulfate [FeroSul] 325 mg (65 mg iron) tablet 325 mg PO DAILY Qty: 30 0RF Rx Instructions: 1 tablet daily montelukast 10 mg tablet 10 mg PO QHS Qty: 90 3RF atorvastatin 40 mg tablet 40 mg PO QODAY Qty: 45 3RF Patient Comments: PT TAKES IN EVENING insulin aspart U-100 [Novolog PenFill U-100 Insulin] 100 unit/mL cartridge 10 unit subcut TID Qty: 15 1RF Rx Instructions: hold if glucose is under 130 (DME) handicap placard See Rx Instructions .ROUTE .MEDSUPPLY Qty: 1 0RF Rx Instructions: Length of time: 5 years Diganosis: Impaired physical mobility budesonide-formoterol [Symbicort] 160-4.5 mcg/actuation HFA aerosol inhaler 2 puff inhalation BID Qty: 3 3RF Rx Instructions: administer with spacer, rinse mouth after each use Eliquis 2.5 mg tablet 2.5 mg PO BID Qty: 180 4RF (DME) OneTouch Ultra Test Strip See Rx Instructions .Route Qty: 180 1RF Rx Instructions: Check three to four times a day. albuterol sulfate [Ventolin HFA] 90 mcg/actuation HFA aerosol inhaler 2 inh INHALATION Q4H PRN (Reason: shortness of breath or wheezing) Qty: 18 6RF ranolazine 500 mg tablet extended release 12 hr 500 mg PO BID Qty: 180 3RF hydralazine 100 mg tablet 100 mg PO BID Qty: 180 3RF ropinirole 1 mg tablet 3 mg PO QHS Qty: 90 11RF Rx Instructions: administer 2-3 tablets, 1-3 hours before bedtime (DME) FreeStyle Dwight 3 Plus Sensor Device See Rx Instructions .Route Qty: 3 0RF Rx Instructions: As directed (DME) pen needle, diabetic [Unifine Pentips] 31 gauge x 1/4 needle See Rx Instructions .ROUTE .COMPLEX Qty: 100 1RF Dose Instruction: use 3 TO 4 needles daily Rx Instructions: use 3 TO 4 needles daily nitroglycerin [Nitrostat] 0.4 mg tablet, sublingual 0.4 mg SUBLINGUAL Q5-15M PRN (Reason: chest pain) Qty: 25 2RF Discontinued carvedilol 3.125 mg Tablet 3.125 mg PO BIDCM Qty: 60 0RF gabapentin 300 mg Capsule 300 mg PO QHS Qty: 30 0RF losartan 25 mg Tablet 25 mg PO DAILY Qty: 30 0RF torsemide 20 mg tablet 20 mg PO BID Qty: 60 0RF Referrals / Follow Up: Riaz Garrison MD [Primary Care Provider] - Laura Farias, PA [Med Staff - [facility]] - See Referral Note (Within 2 to 3 weeks) Disposition Disposition (needs filled in before D/C Order can be placed): Home, Self Care 02/22/25 1516<Electronically signed by Inocencio Perkins DO>Inocencio Perkins DO CC: Dr. Hansel Gillis MD; Dr. Riaz Garrison MD; Dr. Tracey Orantes MD ~ Signed [facility] Work Phone: 1(893) 931-407305-19-2025 [facility]05-18-2025 Progress note Author Inocencio [facility] Note Date/Time February 21, 2025 10:37 am [facility] Medical Records Department [address] [place] [address] Progress Note - Hospitalist 02/21/25 1029 MR#: [id number] Acct: [id number] Name: DESIREE AMES Rep #:[id number] : 1935 89 From: Inocencio Perkins DO PCP: Dr. Riaz Garrison MD Status:ADM IN Location: [place] [address] Reason for Visit Reason for Visit: Diagnoses Acute kidney failure, unspecified (02/19/25) Hypoxemia (02/19/25) Subjective Subjective Patient was seen and examined today, he is currently on room air. He appears comfortable, labs obtained today showing improved creatinine at 2.72. Sodium isslightly low at 129. Objective Data Objective Data Vital Signs: Vital Signs Temp Pulse Resp BP Pulse Ox O2 Del Method O2 Flow Rate 98.5 F 67 17 146/62 H 95 Room Air 2 02/21/25 08:43 02/21/25 08:50 02/21/25 08:43 02/21/25 08:43 02/21/25 08:43 02/21/25 08:57 02/20/25 14:30 Oxygen Flow Rate (L/min) 2 Oxygen Delivery Method Room Air Weight: 90.4 kg Body Mass Index (BMI) 30.3 Intake & Output: Intake and Output for Last 24 Hours 02/19/25 02/20/25 02/21/25 23:59 23:59 23:59 Intake Total 1150 / 1150 360 / 360 Output Total 150 / 150 2200 / 2200 625 / 625 Balance -150 / -150 -1050 / -1050 -265 / -265 Lab / Micro Data 02/20/25 05:06 02/21/25 08:35 Labs: Laboratory Results - last 24 hr 02/20/25 11:32: POC Glucose 142 H 02/21/25 08:35: Sodium 129 L, Potassium 4.7, Chloride 93 L, Carbon Dioxide 23.0,Anion Gap 13, BUN 80 H, Creatinine 2.72 H, Estim Creat Clear Calc 20.89 L, Est GFR (MDRD) Non-Af 22 L, BUN/Creatinine Ratio 29.3 H, Glucose 227 H, Calcium 9.5 Micro: Microbiology 02/19/25 21:45 Mucosa - Nasopharyngeal Coronavirus COVID-19 PCR - Final 02/19/25 21:45 Mucosa - Nasopharyngeal Respiratory Panel (PCR) - Final Parainfluenza 3 Physical Exam Narrative alert, oriented x3 and no apparent distress General Appearance: cooperative, well kempt and well developed Orientation / Consciousness: awake, oriented to person, oriented to place and oriented to time HEENT normocephalic, head/scalp atraumatic and moist oral mucous membranes Eyes PERRL, EOMs intact bilaterally and conjunctivae normal Neck supple, no JVD, thyroid normal and no carotid bruits General: trachea midline Resp normal respiratory effort and no retractions Resp Narrative: There are decreased breath sounds bilaterally, no rhonchi was noted today Auscultation: Negative for rales, rhonchi or wheezes Cardio S1 normal heart sound, S2 normal heart sound, no murmurs, no rub and no gallops Cardio Narrative: Heart rate and rhythm is irregular GI normal to inspection, nondistended, normoactive bowel sounds, soft to palpation,non-tender and non-distended Extremity no clubbing, cyanosis or edema Skin no rashes or lesions noted Skin Narrative: There is generalized edema noted over the lower legs. General Skin Exam: no breakdown Neuro oriented x3, CN's II-XII intact bilaterally, moves all extremities, no focal motor deficits and no sensory deficits noted Neuro Narrative: Patient's speech is clear today Sensorium / Orientation: awake and alert Psych affect normal Assessment & Plan Assessment/Plan (1) Generalized weakness: (2) Hypoxia: PLAN: Plan 1. Acute exacerbation of COPD with hypoxia secondary to parainfluenza 3 viral infection with underlying acute on chronic systolic congestive heart failure- patient remains on IV Solu-Medrol and aerosol treatments at this time and oral Lasix, creatinine is improved, patient is now on room air #2 acute on chronic systolic congestive heart failure-again patient is on oral Lasix #3 acute kidney injury on a backdrop of chronic kidney disease stage IV-again patient will be maintained on Lasix due to his congestive heart failure, BMP will be obtained tomorrow #4 chronic atrial fibrillation-patient remains on a beta-wagner and Eliquis #5 acute hyperkalemia-resolved at this time, etiology unclear, patient was takenoff his losartan #6 chronic iron deficiency anemia-etiology unclear, patient received iron infusions during his last admission. Total clinical time spent by myself addressing the patient's medical issues, reviewing all of his data, and collaborating with patient's care team: 35- minutes Charges/Coding Visit Charges Inpatient E&M: 25990 Subs Hosp L2 02/21/25 1037 <Electronically signed by Inocencio Perkins DO> Cosigner Signature (if applicable): CC: ~ Signed [facility] Work Phone: 1(141) 181-308105-17-2025 Progress note Author [facility]io [facility] Note Date/Time February 20, 2025 2:07p [facility] Medical Records Department [address] [place] [address] Progress Note - Hospitalist 02/20/25 1400 MR#: [id number] Acct: [id number] Name: DESIREE AMES Rep #:[id number] : 1935 89 From: Inocencio Perkins DO PCP: Dr. Riaz Garrison MD Status:ADM IN Location: [place] [address] Reason for Visit Reason for Visit: Diagnoses Acute kidney failure, unspecified (02/19/25) Subjective Subjective Patient was seen and examined today, he was admitted yesterday for respiratory distress-chest x-ray showed vascular congestion, he also was admitted due to an elevated creatinine and generalized weakness. A respiratory panel was done after admission which indicated the patient had parainfluenza 3 virus. Objective Data Objective Data Vital Signs: Vital Signs Temp Pulse Resp BP Pulse Ox O2 Del Method O2 Flow Rate 97.8 F 80 18 128/61 H 97 Nasal Cannula 2 02/20/25 08:41 02/20/25 08:47 02/20/25 08:41 02/20/25 08:41 02/20/25 08:41 02/20/25 13:38 02/20/25 13:38 Oxygen Flow Rate (L/min) 2 Oxygen Delivery Method Nasal Cannula Weight: 90.4 kg Body Mass Index (BMI) 30.3 Intake & Output: Intake and Output for Last 24 Hours 02/18/25 02/19/25 02/20/25 23:59 23:59 23:59 Intake Total 600 / 600 Output Total 150 / 150 800 / 800 Balance -150 / -150 -200 / -200 Lab / Micro Data 02/20/25 05:06 02/20/25 05:06 Labs: Laboratory Results - last 24 hr 02/19/25 16:00: WBC 12.2 H, RBC 3.74 L, Hgb 10.9 L, Hct 34.5 L, MCV 92.2, MCH 29.1, MCHC 31.6 L D, RDW Std Deviation 48.0 H, RDW Coeff of Justin 15.0 H, Plt Count 523 H, MPV 10.3, Immature Gran % (Auto) 2.100 H, Neut % (Auto) 80.8 H, Lymph % (Auto) 5.2 L, [place] % (Auto) 10.5 H, Eos % (Auto) 1.0, Baso % (Auto) 0.4, Absolute Neuts (auto) 9.8 H, Absolute Lymphs (auto) 0.63 L, Nucleated RBC % 0.4,Sodium 133, Potassium 5.6 H, Chloride 95 L, Carbon Dioxide 24.3, Anion Gap 14, BUN 72 H, Creatinine 3.09 H, Estim Creat Clear Calc 18.57 L, Est GFR (MDRD) Non-Af 19 L, BUN/Creatinine Ratio 23.3 H, Glucose 129 H, Calcium 9.9, Troponin T High Sens 271 H* D, NT pro BNP II 5205 H 02/19/25 18:12: POC Glucose 151 H 02/19/25 23:01: POC Glucose 202 H 02/20/25 00:44: Potassium 4.6 02/20/25 05:06: WBC 8.8, RBC 2.87 L, Hgb 10.2 L, Hct 27.2 L, MCV 94.8 H, MCH 35.5 H, MCHC 37.5 H D, RDW Std Deviation 46.8 H, RDW Coeff of Justin 14.6, Plt Count 524 H, MPV 10.2, Immature Gran % (Auto) 1.900 H, Neut % (Auto) 80.2 H, Lymph % (Auto) 6.3 L, [place] % (Auto) 10.3 H, Eos % (Auto) 0.8, Baso % (Auto) 0.5, Absolute Neuts (auto) 7.1, Absolute Lymphs (auto) 0.56 L, Nucleated RBC % 0, PT 19.6 H, INR 1.6, Sodium 133, Potassium 4.8, Chloride 97 L, Carbon Dioxide 21.2, Anion Gap 15, BUN 74 H, Creatinine 3.05 H, Estim Creat Clear Calc 18.63 L, Est GFR (MDRD) Non-Af 19 L, BUN/Creatinine Ratio 24.2 H, Glucose 194 H, Calcium 9.1,Phosphorus 5.1 H, Magnesium 2.5 H, Total Bilirubin 0.38, Direct Bilirubin 0.24, AST 22, ALT 18, Alkaline Phosphatase 75, Total Protein 6.6, Albumin 3.3 L, Globulin 3.2, Albumin/Globulin Ratio 1.0, TSH 1.030 02/20/25 08:37: POC Glucose 158 H 02/20/25 11:32: POC Glucose 142 H Micro: Microbiology 02/19/25 21:45 Mucosa - Nasopharyngeal Coronavirus COVID-19 PCR - Final 02/19/25 21:45 Mucosa - Nasopharyngeal Respiratory Panel (PCR) - Final Parainfluenza 3 ABG Data ABG results: ABG 02/19/25 16:54 Specimen Type YURY Sample Site Not entered VBG pH 7.41 VBG pO2 35 VBG HCO3 28 H VBG Total CO2 29 VBG O2 Sat (Calc) 67 VBG Base Excess 3 POC Mix VBG pCO2 Pt Tmp 44.4 O2 Delivery Device Not entered Radiography Diagnostic Testing: Radiology Impression Chest X-Ray 02/19/25 16:15 IMPRESSION: Findings suggestive of vascular congestion. Reading Location: [facility] Physical Exam Const alert, oriented x3 and no apparent distress General Appearance: cooperative, well kempt and well developed Orientation / Consciousness: awake, oriented to person, oriented to place and oriented to time HEENT normocephalic, head/scalp atraumatic and moist oral mucous membranes Eyes PERRL, EOMs intact bilaterally and conjunctivae normal Neck supple, no JVD, thyroid normal and no carotid bruits General: trachea midline Resp normal respiratory effort and no retractions Resp Narrative: Expiratory rhonchi are noted over both lungs Auscultation: Negative for rales, rhonchi or wheezes Cardio S1 normal heart sound, S2 normal heart sound, no murmurs, no rub and no gallops Cardio Narrative: Heart rate and rhythm is irregular GI normal to inspection, nondistended, normoactive bowel sounds, soft to palpation,non-tender and non-distended Extremity no clubbing, cyanosis or edema Skin no rashes or lesions noted Skin Narrative: There is generalized edema noted over the lower legs. General Skin Exam: no breakdown Neuro oriented x3, CN's II-XII intact bilaterally, moves all extremities, no focal motor deficits and no sensory deficits noted Neuro Narrative: Patient has some slurring of his speech noted. Sensorium / Orientation: awake and alert Psych affect normal Assessment & Plan Assessment/Plan (1) Hypoxia: PLAN: Plan 1. Acute exacerbation of COPD with hypoxia secondary to parainfluenza 3 viral infection with underlying acute on chronic systolic congestive heart failure-I talked briefly informally with cardiology, they advise stopping the patient's losartan, increasing the patient's carvedilol, and placing the patient on the equivalent of 80 mg of Lasix in the morning and 40 mg of Lasix in the afternoon. I also placed the patient on IV Solu-Medrol and DuoNeb aerosol treatments. I talked at length with the patient's who was in the room at the time my examination and outlined my care plan. #2 acute on chronic systolic congestive heart failure-again patient will be placed on oral Lasix #3 acute kidney injury on a backdrop of chronic kidney disease stage IV-again patient will be maintained on Lasix due to his congestive heart failure, it is expected his creatinine may decline further. #4 chronic atrial fibrillation-patient remains on a beta-wagner and Eliquis #5 acute hyperkalemia-resolved at this time, etiology unclear, patient was takenoff his losartan #6 chronic iron deficiency anemia-etiology unclear, patient received iron infusions during his last admission. Total clinical time spent by myself addressing the patient's medical issues, reviewing all of his data, and collaborating with patient's care team: 50-minute Charges/Coding Visit Charges Inpatient E&M: 94931 Subs Hosp L3 02/20/25 1407 <Electronically signed by Inocencio Perkins DO> Cosigner Signature (if applicable): CC: ~ Signed [facility] Work Phone: [phone] 503-387105-17-2025 History and physical note Author Hansel Gillis [facility] Note Date/Time February 20, 2025 4:20a m [facility] Medical Records Department [address] [place] [address] H&P Exam - Hospitalist 02/19/251999 MR#: [id number] Acct: [id number] Name: DESIREE AMES Rep #:[id number] : 1935 89 From: Hansel Gillis MD PCP: Dr. Riaz Garrison MD Status:ADM IN Location: [place] [address] HPI - General General Date of Admission: 02/19/25 Date of Service: 02/19/25 Chief Complaint: Acute kidney injury HPI Narrative DESIREE AMES, is a 89 M with past medical history of congestive heart failure, recently discharged after management for acute decompensated heart failure on 02/18/2025, hypertension, dyslipidemia, obesity, MARIXA, type 2 diabetes, diabetic neuropathy, coronary artery disease s/p distal RCA stent on ranolazine, chronic atrial fibrillation/flutter, history of AAA repair, prior tobacco use, COPD, CKDwith baseline creatinine around 2.3, iron deficiency anemia, peripheral vasculardisease who presents to the ED with concerns regarding progressive fatigue sincehis discharge and persistent difficulty breathing. Patient was discharged yesterday after being managed for acute decompensated heart failure with heart failure with reduced ejection fraction he was started on Lasix and discharged on torsemide 20 mg twice daily as well as losartan daily. With the diuretics and optimization of his goal-directed medical therapyhis oxygen requirement had improved and he was on room air and his pedal edema have improved. During his stay he was also evaluated by neurology for abnormal body movements. They restarted gabapentin 300 mg at night, scheduled melatonin,and healthy sleep hygiene was recommended. There was no clear etiology for his abnormal body movements. MRI brain showed moderate chronic microvascular ischemia and involutional changes with no suspicious intracranial mass, abnormalparenchymal or leptomeningeal enhancement. Since his discharge the notes that he has become more lethargic and tired and she finds it extremely difficult to take care of him at home. Also he noteshis shortness of breath is intermittent and start markedly improved compared to prior presentation. Today at presentation, he was afebrile, blood pressure 133/57, respiratory rate was 20 and was satting about 94% on room air. WBC 12.2, hemoglobin 10.9, platelet 523, venous pH 7.4, bicarb 28, pCO2 29, potassium 5.6, BUN 72 [elevated from 56 at the time of discharge) and his creatinine was elevated to 3.09 from 2.3 at the time of discharge his NT proBNP is 5205 [place] [address] on 02/15/2025. [facility] Medical History Right carotid bruit Stable angina Kidney disease GERD (gastroesophageal reflux disease) Irregular heart beat Myocardial infarct Complicated urinary tract infection Urinary tract infection Colonic mass Controlled type 2 diabetes mellitus Acute respiratory insufficiency Chronic kidney disease Chronic anemia Bilateral edema of lower extremity Urinary retention Fatigue Pleural effusion (HFpEF) heart failure with preserved ejection fraction Pneumonia Colon polyp Lightheadedness Chronic constipation Anemia Obstructive sleep apnea Coronary artery disease Gastroesophageal reflux disease Allergic rhinitis Hyperlipidemia Urinary retention Wears hearing aid Wears dentures Wears glasses Cancer History of steroid therapy Ambulates with cane Walker as ambulation aid Arthritis Kidney stone Easy bruising Back pain Injury of back History of hiatal hernia Former smoker BiPAP (biphasic positive airway pressure) dependence Asthma Hoarseness Chronic cough Leg cramps History of pain when walking History of stress test History of heart attack History of irregular heartbeat Recurrent urinary tract infection ALMEIDA (dyspnea on exertion) Chest pain Right leg swelling Patellar bursitis of right knee Asthma-COPD overlap syndrome Abdominal aortic aneurysm (AAA) Peripheral vascular disease of extremity with claudication Rectus sheath hematoma Pre-syncope Essential (primary) hypertension Restless legs syndrome Daytime hypersomnia Somatic dysfunction of pelvic region DDD (degenerative disc disease), lumbar Overweight Seasonal allergies Carotid bruit Atherosclerotic heart disease of [place] coronary artery without angina pectoris PVD (peripheral vascular disease) COPD (chronic obstructive pulmonary disease) Home Medications ?Medication ?Instructions ?Recorded ?Last Taken ?Type handicap placcard #1 ea 09/28/19 Unknown Rx coenzyme Q10 100 mg capsule (Co 100 mg PO DAILY supple ment 05/03/20 01/29/25 History Q-10) cholecalciferol (vitamin D3) 100 100 mcg PO DAILY supp lement 11/03/20 01/29/25 History mcg (4,000 unit) tablet spacer #1 ea 01/12/21 Unknown Rx lancets #180 ea 07/18/23 Unknown Rx montelukast 10 mg tablet 10 mg PO QHS Respiratory #90 tabs 05/04/24 02/18/25 Rx atorvastatin 40 mg tablet 40 mg PO QODAY cholesterol # 45 tabs 05/13/24 01/27/25 Rx tamsulosin 0.4 mg capsule 0.4 mg PO DAILY 06/01/24 History finasteride 5 mg tablet 5 mg PO DAILY 06/28/2401/28 History insulin aspart U-100 100 unit/mL 10 unit (0.1 mL) subc ut TID #15 mL 10/07/24 01/29/25 Rx subcutaneous cartridge (Novolog PenFill U-100 Insulin aspart) handicap placard #1 ea 10/12/24 Unknown Rx budesonide-formoterol HFA 160 2 puff inhalation BID co pd #3 ea 10/16/24 01/28/25 Rx mcg-4.5 mcg/actuation aerosol inhaler (Symbicort) pantoprazole 40 mg tablet,delayed 40 mg PO DAILY reflu x #90 tabs 11/30/24 01/29/25 Rx release apixaban 2.5 mg tablet (Eliquis) 2.5 mg PO BID atrial fibrillation 12/14/24 02/19/25 Rx #180 tabs ipratropium bromide 21 mcg (0.03 2 spray intranasal BI D PRN allergy 12/14/24 Unknown History %) nasal spray symptoms blood sugar diagnostic (OneTouch #180 ea 12/21/24 Unkn own Rx Ultra Test strips) albuterol sulfate 90 mcg/actuation 2 inh inhalation Q4 H PRN shortness 01/04/25 01/28/25 Rx aerosol inhaler (Ventolin HFA) of breath or wheezing # 18 grams hydralazine 100 mg tablet 100 mg PO BID hypertension # 180 01/26/25 02/19/25 Rx tabs ranolazine 500 mg tablet,extended 500 mg PO BID #180 t abs 01/26/25 02/19/25 Rx release,12 hr ropinirole 1 mg tablet 3 mg (3 x 1 mg) PO QHS restl ess 01/26/25 02/18/25 Rx leg #90 tabs ipratropium 0.5 mg-albuterol 3 mg 3 ml inhalation TID SOB &/OR 01/29/25 01/28/25 History (2.5 mg base)/3 mL nebulization WHEEZING soln loratadine 10 mg tablet (Allergy 10 mg PO DAILY allerg ies 01/29/25 01/28/25 History Relief (loratadine)) 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,rug designer,cont #1 ea 02/01/25 Unknown Rx (FreeStyle [place] 3 [place]) 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 sensor (FreeStyle #3 ea 02/10/25 Unknown Rx Dwight 3 Plus Sensor device) insulin glargine 100 unit/mL (3 22 unit subcut DAILY 0 02/15/25 Unknown History mL) subcutaneous pen (Lantus Solostar U-100 Insulin) nitroglycerin 0.4 mg sublingual 0.4 mg sublingual Q5-1 5M PRN chest 02/15/25 Unknown Rx tablet (Nitrostat) pain #25 tabs pen needle, diabetic 31 gauge x #100 ea 02/15/25 Unkno wn Rx 1/ (Unifine Pentips) aspirin 81 mg tablet,delayed 81 mg PO BREAKFAST #0 tab s 02/18/25 Unknown Rx release carvedilol 3.125 mg tablet 3.125 mg PO BIDCM #60 tabs 02/18/25 02/19/25 Rx ferrous sulfate 325 mg (65 mg 325 mg PO DAILY low iron #30 tabs 02/18/25 Unknown Rx iron) tablet (FeroSul) gabapentin 300 mg capsule 300 mg PO QHS #30 caps 02/18 Unknown Rx lactulose 10 gram/15 mL oral 20 g (30 mL) PO DAILY #94 6 mL 02/18/25 Unknown Rx solution losartan 25 mg tablet 25 mg PO DAILY #30 tabs 02/04 02/28 Unknown Rx potassium chloride 10 mEq 20 meq (2 x 10 mEq) PO BIDCM #60 02/18/25 Unknown Rx tablet,extended release(part/cryst) tabs torsemide 20 mg tablet 20 mg PO BID #60 tabs Unknown Rx Allergy/AdvReac Type Severity Reaction Status Date / Time cilostazol (From Pletal) Allergy Unknown Verified 02/19/25 15:53 felodipine Allergy Hives Verified 02/19/25 15:53 levofloxacin Allergy Hives Verified 02/19/25 15:53 Sulfa (Sulfonamide Allergy Unknown Verified 02/19/25 15:53 Antibiotics) isosorbide AdvReac Intermediate low BP Verified 02/19/25 15:53 Family History Father Diabetes Cancer Prostate cancer Mother Dementia Brother Parkinsons Brother Cancer H/O vascular surgery Surgical History History of appendectomy History of surgical procedure H/O vascular surgery History of surgical procedure History of transurethral resection of prostate History of endarterectomy (07/2018) History of left heart catheterization (03/2014) History of coronary artery stent placement (02/17/08) History of vascular surgery (08/2018) History of hernia repair H/O aortic aneurysm repair (11/1998) Social History household members: spouse 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 status: 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 Smoking Status: Former smoker quit date: 08/07/08 pack-years: 2 Tobacco: How many years used: 52 Electronic Cigarette Use: not used how long ago did patient quit smokin years ago alcohol intake: current alcohol intake frequency: holidays/special occasions only details: hx of alcohol abuse substance use type: does not use caffeine: No what type of physical activity do you participate in: other details: Nustep frequency: 5-6 times per week duration: 15-30 minutes/day seatbelt use: always do you feel safe at home: Yes ROS Review of Systems ROS Unobtainable: Denies due to encephalopathy, due to endotracheal tube, due to mental condition, due to mental status or other Constitutional Constitutional: Reports malaise and weakness Eyes Eyes: Denies blurry vision, change in eye color, change in vision, discharge from eye(s), double vision, erythema, eye pain, loss of vision or other ENT HEENT: Denies abnormal hearing, dysphagia, ear pain, epistaxis, headache(s), hearing loss, nasal congestion, nasal discharge, post nasal drip, sinus pressure, sore throat or other Cardiovascular Cardiovascular: Reports dyspnea on exertion and edema Respiratory/Chest Respiratory/Chest: Reports shortness of breath with exertion; Denies cough, dyspnea, excessive phlegm production, hemoptysis, productive cough, shortness of breath at rest, wheezing or other Gastrointestinal Gastrointestinal: Denies abdominal pain, coffee ground emesis, constipation, diarrhea, dyspepsia, hematemesis, hematochezia, loose stools, melena, nausea, vomiting or other Genitourinary Genitourinary: Denies burning urination, difficulty urinating, dysuria, hematuria, nocturia, urinary frequency, urinary hesitancy, urinary incontinence, urinary urgency or other Musculoskeletal Musculoskeletal: Reports arthralgias and back pain; Denies joint pain, joint stiffness, joint swelling, myalgias, neck pain or other Neurologic Neurologic: Denies abnormal gait, abnormal speech, confusion, disequilibrium, dizziness, focal weakness, headache(s), numbness, paresthesias, seizure-like activity, seizures, syncope, tingling, tremor(s) or other Psychiatric Psychiatric: Denies anxiety, depression, homicidal ideation, suicidal ideation or other Endocrine Endocrinology: Denies change in body appearance, cold intolerance, excessive sweating, heat intolerance, polydipsia, polyuria or other Hematologic/Lymphatic Hematologic/Lymphatic: Denies anemia, easy bleeding, easy bruising, lymphadenopathy or other Allergic/Immunologic Allergic/Immunologic: Denies rhinitis, hives, eczemia, asthma or other Vital Signs Vital Signs Vital Signs: 02/19/25 15:53 02/19/25 15:56 02/19/25 15:56 Temperature 98.2 F 98.2 F Temperature Source Oral Oral Pulse Rate 73 72 Respiratory Rate 20 H 20 H Respiratory Effort Normal Respiratory Pattern Normal Blood Pressure 133/57 H 133/57 H Blood Pressure Mean 82 82 Pulse Ox 94 94 Oxygen Delivery Method Room Air Room Air 02/19/25 16:22 02/19/25 17:00 02/19/25 18:00 Temperature 98.6 F 98.5 F Temperature Source Oral Oral Pulse Rate 67 75 70 Respiratory Rate 16 18 18 Respiratory Effort Respiratory Pattern Normal Blood Pressure 137/78 H 158/79 H Blood Pressure Mean 97 105 Pulse Ox 96 92 Oxygen Delivery Method Room Air Room Air 02/19/25 19:00 Temperature 98.4 F Temperature Source Oral Pulse Rate 77 Respiratory Rate 25 H Respiratory Effort Respiratory Pattern Blood Pressure 133/78 H Blood Pressure Mean 96 Pulse Ox 94 Oxygen Delivery Method Room Air Weight Weight: 203 lb 7.787 oz Body Mass Index (BMI) 30.9 Physical Exam Const alert, oriented x3 and no apparent distress HEENT normocephalic and head/scalp atraumatic Neck no lymphadenopathy Resp Resp Narrative: Bilateral wheezes present Cardio regular rate and regular rhythm GI normal to inspection, nondistended, normoactive bowel sounds Auscultation: hyperactive bowel sounds Extremity normal to inspection Neuro oriented x3, CN's II-XII intact bilaterally, moves all extremities and no focal motor deficits Neuro Narrative: No abnormal movements present at the time of examination Results Medical Records Data Attestation: I reviewed the patient's medical records Lab / Micro Data Attestation: I reviewed the patient's lab results. 02/19/25 16:00 02/20/25 00:44 Labs: Laboratory Results - last 24 hr 02/19/25 16:00: WBC 12.2 H, RBC 3.74 L, Hgb 10.9 L, Hct 34.5 L, MCV 92.2, MCH 29.1, MCHC 31.6 L D, RDW Std Deviation 48.0 H, RDW Coeff of Justin 15.0 H, Plt Count 523 H, MPV 10.3, Immature Gran % (Auto) 2.100 H, Neut % (Auto) 80.8 H, Lymph % (Auto) 5.2 L, [place] % (Auto) 10.5 H, Eos % (Auto) 1.0, Baso % (Auto) 0.4, Absolute Neuts (auto) 9.8 H, Absolute Lymphs (auto) 0.63 L, Nucleated RBC % 0.4, Sodium 133, Potassium 5.6 H, Chloride 95 L, Carbon Dioxide 24.3, Anion Gap 14, BUN 72 H, Creatinine 3.09 H, Estim Creat Clear Calc 18.57 L, Est GFR (MDRD) Non-Af 19 L, BUN/Creatinine Ratio 23.3 H, Glucose 129 H, Calcium 9.9, Troponin T High Sens 271 H* D, NT pro BNP II 5205 H 02/19/25 18:12: POC Glucose 151 H ABG Data ABG results: ABG 02/19/25 16:54 Specimen Type YURY Sample Site Not entered VBG pH 7.41 VBG pO2 35 VBG HCO3 28 H VBG Total CO2 29 VBG O2 Sat (Calc) 67 VBG Base Excess 3 POC Mix VBG pCO2 Pt Tmp 44.4 O2 Delivery Device Not entered Imaging Radiology Impression Chest X-Ray 02/19/25 16:15 IMPRESSION: Findings suggestive of vascular congestion. [facility] Assessment & Plan Assessment/Plan (1) Acute kidney injury: PLAN: Plan 89-year-old male who was recently discharged after management for acute decompensated heart failure is being readmitted for concerns regarding progressive weakness, hyperkalemia as well as NARENDRA on CKD. He has multiple past comorbidities that are contributing to the symptoms. #NARENDRA on CKD #Drug-induced (most likely) versus cardiorenal - There is an elevation in the BUN as well as creatinine from the baseline - This could be because of the ongoing diuresis and also could be because of losartan - Will hold off the diuretics for now and reassess his kidney function tomorrow - Given his precarious cardiac situation will not give him any fluids at this time - Unlikely to be cardiorenal as there has been an improvement in the BNP levels - Admit to PCU for further monitoring #Shortness of breath - Send viral PCR for COVID, influenza and respiratory panel - Continue home medications for now #Cardiomyopathy? Ischemic - Will continue losartan for now with close monitoring of the potassium - Hold off diuresis - Continue carvedilol 3.125 mg twice daily #Hyperkalemia - Likely secondary to losartan in the setting of CKD - Close monitoring of potassium - Albuterol 2.5 mg / 0.5 mL inhalation once - Repeat potassium levels #Coronary artery disease - Continue with neurology and as needed sublingual NTG - EKG was reviewed and no features of ischemia, patient is clinically asymptomatic - Elevated high-sensitivity troponin is likely because of the NARENDRA #COPD #Acute bronchitis - Continue home medications for now - Satting well on room air #Debility due to chronic illness - PT OT evaluation regarding placement to custodial facility - endorses need for further support at home with time of discharge #A-fib - Continue carvedilol and Eliquis #Abnormal body movements - MRI was normal, continue gabapentin based on the recent neurology evaluation next #Type 2 diabetes - Continue home insulin with glargine, aspart #AAA repair: Noted #GERD: Continue home medication #Restless leg syndrome: Continue ropinirole #Iron-deficiency anemia - Continue ferrous sulfate supplementation #DVT prophylaxis - Continue apixaban #Code discussion: Full code 02/20/25 0420 <Electronically signed by Hansel Gillis MD> Cosigner Signature (if applicable): CC: Dr. Hansel Gillis MD; Dr. Riaz Garrison MD~ Signed [facility] Work Phone: [phone]) 673-929605-16-2025 Discharge summary Author Aaliyah Collins [facility] Note Date/Time February 19, 2025 7:52p m [facility] Medical Records Department [address] [place] [address] Emergency Department Summary 02/19/25 MR#: [id number] Acct: [id number] Name: DESIREE AMES Rep #:[id number] : 1935 89 From: Aaliyah CARRERA PCP: Dr. Riaz Garrison MD Status:REG ER Location: ED HPI <DEBI Barraza - Last Filed: 02/19/25 19:30> History of Present Illness Chief Complaint: General Illness Narrative Narrative: 89-year-old male with PMH of HTN, HLD, DM2, CHF, A-fib, anemia, CKD, cardiomyopathy, pulmonary hypertension presents with generalized weakness. He was admitted from 02/15 through 02/18 for CHF exacerbation. He went home yesterday and his states he can barely get around with his walker and he isjust generally weak. He has been arguing with her about taking his medications. He was supposed to take 6 units of insulin before lunch but only agreed to take3 units etc. He was able to ambulate to the bathroom with his walker but when trying to get back in his chair almost fell. She called EMS and they had to lift him onto the cot because he felt so generally weak. He has had ongoing breathing issues from his CHF and COPD. This has not changed since hospitalization. He wears a BiPAP at night. He also has a tremor for the last several months with a possible undiagnosed movement disorder. He saw [facility] during his stay and is trialing gabapentin. No other acute changes since he left. [facility] <DEBI Barraza - Last Filed: 02/19/25 19:30> [facility] Medical History Right carotid bruit Stable angina Kidney disease GERD (gastroesophageal reflux disease) Irregular heart beat Myocardial infarct Complicated urinary tract infection Urinary tract infection Colonic mass Controlled type 2 diabetes mellitus Acute respiratory insufficiency Chronic kidney disease Chronic anemia Bilateral edema of lower extremity Urinary retention Fatigue Pleural effusion (HFpEF) heart failure with preserved ejection fraction Pneumonia Colon polyp Lightheadedness Chronic constipation Anemia Obstructive sleep apnea Coronary artery disease Gastroesophageal reflux disease Allergic rhinitis Hyperlipidemia Urinary retention Wears hearing aid Wears dentures Wears glasses Cancer History of steroid therapy Ambulates with cane Walker as ambulation aid Arthritis Kidney stone Easy bruising Back pain Injury of back History of hiatal hernia Former smoker BiPAP (biphasic positive airway pressure) dependence Asthma Hoarseness Chronic cough Leg cramps History of pain when walking History of stress test History of heart attack History of irregular heartbeat Recurrent urinary tract infection ALMEIDA (dyspnea on exertion) Chest pain Right leg swelling Patellar bursitis of right knee Asthma-COPD overlap syndrome Abdominal aortic aneurysm (AAA) Peripheral vascular disease of extremity with claudication Rectus sheath hematoma Pre-syncope Essential (primary) hypertension Restless legs syndrome Daytime hypersomnia Somatic dysfunction of pelvic region DDD (degenerative disc disease), lumbar Overweight Seasonal allergies Carotid bruit Atherosclerotic heart disease of [place] coronary artery without angina pectoris PVD (peripheral vascular disease) COPD (chronic obstructive pulmonary disease) Home Medications ?Medication ?Instructions ?Recorded ?Last Taken ?Type handicap placcard #1 ea 09/28/19 Unknown Rx coenzyme Q10 100 mg capsule (Co 100 mg PO DAILY supple ment 05/03/20 01/29/25 History Q-10) cholecalciferol (vitamin D3) 100 100 mcg PO DAILY supp lement 11/03/20 01/29/25 History mcg (4,000 unit) tablet spacer #1 ea 01/12/21 Unknown Rx lancets #180 ea 07/18/23 Unknown Rx montelukast 10 mg tablet 10 mg PO QHS Respiratory #90 tabs 05/04/24 02/18/25 Rx atorvastatin 40 mg tablet 40 mg PO QODAY cholesterol # 45 tabs 05/13/24 01/27/25 Rx tamsulosin 0.4 mg capsule 0.4 mg PO DAILY 06/01/24 History finasteride 5 mg tablet 5 mg PO DAILY 06/28/2401/28 History insulin aspart U-100 100 unit/mL 10 unit (0.1 mL) subc ut TID #15 mL 10/07/24 01/29/25 Rx subcutaneous cartridge (Novolog PenFill U-100 Insulin aspart) handicap placard #1 ea 10/12/24 Unknown Rx budesonide-formoterol HFA 160 2 puff inhalation BID co pd #3 ea 10/16/24 01/28/25 Rx mcg-4.5 mcg/actuation aerosol inhaler (Symbicort) pantoprazole 40 mg tablet,delayed 40 mg PO DAILY reflu x #90 tabs 11/30/24 01/29/25 Rx release apixaban 2.5 mg tablet (Eliquis) 2.5 mg PO BID atrial fibrillation 12/14/24 02/19/25 Rx #180 tabs ipratropium bromide 21 mcg (0.03 2 spray intranasal BI D PRN allergy 12/14/24 Unknown History %) nasal spray symptoms blood sugar diagnostic (OneTouch #180 ea 12/21/24 Unkn own Rx Ultra Test strips) albuterol sulfate 90 mcg/actuation 2 inh inhalation Q4 H PRN shortness 01/04/25 01/28/25 Rx aerosol inhaler (Ventolin HFA) of breath or wheezing # 18 grams hydralazine 100 mg tablet 100 mg PO BID hypertension # 180 01/26/25 02/19/25 Rx tabs ranolazine 500 mg tablet,extended 500 mg PO BID #180 t abs 01/26/25 02/19/25 Rx release,12 hr ropinirole 1 mg tablet 3 mg (3 x 1 mg) PO QHS restl ess 01/26/25 02/18/25 Rx leg #90 tabs ipratropium 0.5 mg-albuterol 3 mg 3 ml inhalation TID SOB &/OR 01/29/25 01/28/25 History (2.5 mg base)/3 mL nebulization WHEEZING soln loratadine 10 mg tablet (Allergy 10 mg PO DAILY allerg ies 01/29/25 01/28/25 History Relief (loratadine)) 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,rug designer,cont #1 ea 02/01/25 Unknown Rx (FreeStyle Dwight 3 [place]) 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 sensor (FreeStyle #3 ea 02/10/25 Unknown Rx Dwight 3 Plus Sensor device) insulin glargine 100 unit/mL (3 22 unit subcut DAILY 0 02/15/25 Unknown History mL) subcutaneous pen (Lantus Solostar U-100 Insulin) nitroglycerin 0.4 mg sublingual 0.4 mg sublingual Q5-1 5M PRN chest 02/15/25 Unknown Rx tablet (Nitrostat) pain #25 tabs pen needle, diabetic 31 gauge x #100 ea 02/15/25 Unkno wn Rx 1/ (Unifine Pentips) aspirin 81 mg tablet,delayed 81 mg PO BREAKFAST #0 tab s 02/18/25 Unknown Rx release carvedilol 3.125 mg tablet 3.125 mg PO BIDCM #60 tabs 02/18/25 02/19/25 Rx ferrous sulfate 325 mg (65 mg 325 mg PO DAILY low iron #30 tabs 02/18/25 Unknown Rx iron) tablet (FeroSul) gabapentin 300 mg capsule 300 mg PO QHS #30 caps 02/18 Unknown Rx lactulose 10 gram/15 mL oral 20 g (30 mL) PO DAILY #94 6 mL 02/18/25 Unknown Rx solution losartan 25 mg tablet 25 mg PO DAILY #30 tabs 02/04 02/28 Unknown Rx potassium chloride 10 mEq 20 meq (2 x 10 mEq) PO BIDCM #60 02/18/25 Unknown Rx tablet,extended release(part/cryst) tabs torsemide 20 mg tablet 20 mg PO BID #60 tabs Unknown Rx Allergy/AdvReac Type Severity Reaction Status Date / Time cilostazol (From Pletal) Allergy Unknown Verified 02/19/25 15:53 felodipine Allergy Hives Verified 02/19/25 15:53 levofloxacin Allergy Hives Verified 02/19/25 15:53 Sulfa (Sulfonamide Allergy Unknown Verified 02/19/25 15:53 Antibiotics) isosorbide AdvReac Intermediate low BP Verified 02/19/25 15:53 Family History Father Diabetes Cancer Prostate cancer Mother Dementia Brother Parkinsons Brother Cancer H/O vascular surgery Surgical History History of appendectomy History of surgical procedure H/O vascular surgery History of surgical procedure History of transurethral resection of prostate History of endarterectomy (07/2018) History of left heart catheterization (03/2014) History of coronary artery stent placement (02/17/08) History of vascular surgery (08/2018) History of hernia repair H/O aortic aneurysm repair (11/1998) Social History household members: spouse 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 status: retired current occupation: Responsible [employer] Smoking Status: Former smoker quit date: 08/07/08 pack-years: 2 Tobacco: How many years used: 52 Electronic Cigarette Use: not used how long ago did patient quit smokin years ago alcohol intake: current alcohol intake frequency: holidays/special occasions only details: hx of alcohol abuse substance use type: does not use caffeine: No what type of physical activity do you participate in: other details: Nustep frequency: 5-6 times per week duration: 15-30 minutes/day seatbelt use: always do you feel safe at home: Yes ROS <DEBI Barraza - Last Filed: 02/19/25 19:30> ROS ED ROS Narrative Constitutional: Negative for fever, chills, malaise. CVS: Negative for chest pain, syncope. Respiratory: Positive for shortness of breath, cough GI: Negative for abdominal pain, nausea, vomiting, diarrhea. EXAM <DEBI Barraza - Last Filed: 02/19/25 19:30> Physical Exam Narrative Exam Narrative: CONST: Patient sitting in no acute distress. EYES: Normal inspection. ENT: Normal inspection, moist mucous membranes. NECK: Normal inspection. RESP: Inspiratory and expiratory wheezing. CVS: Regular rate and rhythm, no murmur, no gallop. ABD: Soft and nontender, no guarding or rebound, nondistended. SKIN: Color normal, no rash, warm, dry, intact. EXTREMITIES: Normal appearance, no pedal edema. NEURO: Alert and oriented x 4, answering questions appropriately. Hard to understand his speech since dentures are out. PSYCH: Normal affect. Const Vital Signs: 02/19/25 15:53 02/19/25 15:56 02/19/25 15:56 Temperature 98.2 F 98.2 F Temperature Source Oral Oral Pulse Rate 73 72 Respiratory Rate 20 H 20 H Respiratory Effort Normal Respiratory Pattern Normal Blood Pressure 133/57 H 133/57 H Blood Pressure Mean 82 82 Pulse Ox 94 94 Oxygen Delivery Method Room Air Room Air 02/19/25 16:22 02/19/25 17:00 02/19/25 18:00 Temperature 98.6 F 98.5 F Temperature Source Oral Oral Pulse Rate 67 75 70 Respiratory Rate 16 18 18 Respiratory Effort Respiratory Pattern Normal Blood Pressure 137/78 H 158/79 H Blood Pressure Mean 97 105 Pulse Ox 96 92 Oxygen Delivery Method Room Air Room Air 02/19/25 19:00 Temperature 98.4 F Temperature Source Oral Pulse Rate 77 Respiratory Rate 25 H Respiratory Effort Respiratory Pattern Blood Pressure 133/78 H Blood Pressure Mean 96 Pulse Ox 94 Oxygen Delivery Method Room Air <Dr. Enzo Chu, DO - Last Filed: 02/19/25 19:52> Physical Exam Const Vital Signs: 02/19/25 15:53 02/19/25 15:56 02/19/25 15:56 Temperature 98.2 F 98.2 F Temperature Source Oral Oral Pulse Rate 73 72 Respiratory Rate 20 H 20 H Respiratory Effort Normal Respiratory Pattern Normal Blood Pressure 133/57 H 133/57 H Blood Pressure Mean 82 82 Pulse Ox 94 94 Oxygen Delivery Method Room Air Room Air 02/19/25 16:22 02/19/25 17:00 02/19/25 18:00 Temperature 98.6 F 98.5 F Temperature Source Oral Oral Pulse Rate 67 75 70 Respiratory Rate 16 18 18 Respiratory Effort Respiratory Pattern Normal Blood Pressure 137/78 H 158/79 H Blood Pressure Mean 97 105 Pulse Ox 96 92 Oxygen Delivery Method Room Air Room Air 02/19/25 19:00 Temperature 98.4 F Temperature Source Oral Pulse Rate 77 Respiratory Rate 25 H Respiratory Effort Respiratory Pattern Blood Pressure 133/78 H Blood Pressure Mean 96 Pulse Ox 94 Oxygen Delivery Method Room Air MDM <DEBI Barraza - Last Filed: 02/19/25 19:30> [facility] Narrative Medical decision making narrative: History gathered from: Patient and 89-year-old male presents for generalized weakness. He was discharged from the hospital yesterday after treatment for CHF exacerbation. He has labored breathing with inspiratory and expiratory wheezing but his said he always sounds like that. He is fully awake and alert with no focal neurological deficits. I ordered a DuoNeb and VBG which shows no abnormalities. He did seemto have some improvement after aerosols. CBC is stable with WBC of 12.2, hemoglobin 10.9, platelets 523. There is new hyperkalemia at 5.6 and acute on chronic kidney injury with BUN 72, creatinine 3.09 likely from recent diuresis (previously 56/2.35). EKG shows atrial flutter which is chronic and there are no hyperkalemic changes. Troponin is elevated at 271?it previously was 83. He has no chest pain so I suspect this is higher from his worsening kidney function. BNP is trending down and on my review the CXR looks slightly improvedfrom prior CHF exacerbation. Elevated potassium was treated with albuterol and insulin. Glucose is 129 so he was given insulin and a meal. I think patient requires admission due to his worsening kidney function and generalized weakness. states prior to his recent admission he could ambulate without awalker and now he is using a walker and he cannot really get around their home. I discussed the case with social work but he cannot be placed from the ED. I discussed with the hospitalist for admission. Lab Data Attestation: I reviewed the patient's lab results. Labs: Laboratory Results - last 24 hr 02/19/25 02/19/25 16:00 18:12 WBC 12.2 H RBC 3.74 L Hgb 10.9 L Hct 34.5 L MCV 92.2 MCH 29.1 MCHC 31.6 L D RDW Std Deviation 48.0 H RDW Coeff of Justin 15.0 H Plt Count 523 H MPV 10.3 Immature Gran % (Auto) 2.100 H Neut % (Auto) 80.8 H Lymph % (Auto) 5.2 L [place] % (Auto) 10.5 H Eos % (Auto) 1.0 Baso % (Auto) 0.4 Absolute Neuts (auto) 9.8 H Absolute Lymphs (auto) 0.63 L Nucleated RBC % 0.4 Sodium 133 Potassium 5.6 H Chloride 95 L Carbon Dioxide 24.3 Anion Gap 14 BUN 72 H Creatinine 3.09 H Estim Creat Clear Calc 18.57 L Est GFR (MDRD) Non-Af 19 L BUN/Creatinine Ratio 23.3 H Glucose 129 H Calcium 9.9 Troponin T High Sens 271 H* D NT pro BNP II 5205 H POC Glucose 151 H ABG Data ABG results: ABG 02/19/25 16:54 Specimen Type YURY Sample Site Not entered VBG pH 7.41 VBG pO2 35 VBG HCO3 28 H VBG Total CO2 29 VBG O2 Sat (Calc) 67 VBG Base Excess 3 POC Mix VBG pCO2 Pt Tmp 44.4 O2 Delivery Device Not entered Radiography Diagnostic Testing: Clinical Impression(s) from Imaging Studies Chest X-Ray 02/19/25 16:15 IMPRESSION: Findings suggestive of vascular congestion. Reading Location: [facility] <Dr. Enzo Chu, DO - Last Filed: 02/19/25 19:52> [facility] Narrative Medical decision making narrative: History gathered from: Patient and 89-year-old male presents for generalized weakness. He was discharged from the hospital yesterday after treatment for CHF exacerbation. He has labored breathing with inspiratory and expiratory wheezing but his said he always sounds like that. He is fully awake and alert with no focal neurological deficits. I ordered a DuoNeb and VBG which shows no abnormalities. He did seemto have some improvement after aerosols. CBC is stable with WBC of 12.2, hemoglobin 10.9, platelets 523. There is new hyperkalemia at 5.6 and acute on chronic kidney injury with BUN 72, creatinine 3.09 likely from recent diuresis (previously 56/2.35). EKG shows atrial flutter which is chronic and there are no hyperkalemic changes. Troponin is elevated at 271?it previously was 83. He has no chest pain so I suspect this is higher from his worsening kidney function. BNP is trending down and on my review the CXR looks slightly improvedfrom prior CHF exacerbation. Elevated potassium was treated with albuterol and insulin. Glucose is 129 so he was given insulin and a meal. I think patient requires admission due to his worsening kidney function and generalized weakness. states prior to his recent admission he could ambulate without awalker and now he is using a walker and he cannot really get around their home. I discussed the case with social work but he cannot be placed from the ED. I discussed with the hospitalist for admission. ED attending note: I evaluated the patient in conjunction with the AIDA. I agree with his/her statements and above findings. I have personally performed a face to face assessment of the patient and have reviewed the AIDA Note. I performed a substantive portion of the visit including all aspects of the following. I personally saw the patient performed chart review, physical exam, reviewed labs,imaging (if obtained), and formulated a treatment and management plan. History and physical exam as documented above: The patient's chest x-ray was read reviewed personally by myself showed evidenceof pulmonary vascular congestion but no evidence of obvious pneumonia. Radiology agrees my interpretation. The patient's EKG showed no obvious STEMI despite elevated troponin value. BNP elevated consistent with volume overload CBC with no significant anemia VBG without evidence of significant respiratory acidosis or CO2 retention BMP concerning for hyperkalemia as well as acute NARENDRA on CKD Will treat hyperkalemia with insulin and albuterol. Will admit the patient given elevated troponin, hyperkalemia and NARENDRA on CKD. This note was generated with [employer] dictation software. It may contain incorrectwords, spelling, and punctuation that were not noted in review of the chart prior to signing. Lab Data Labs: Laboratory Results - last 24 hr 02/19/25 02/19/25 16:00 18:12 WBC 12.2 H RBC 3.74 L Hgb 10.9 L Hct 34.5 L MCV 92.2 MCH 29.1 MCHC 31.6 L D RDW Std Deviation 48.0 H RDW Coeff of Justin 15.0 H Plt Count 523 H MPV 10.3 Immature Gran % (Auto) 2.100 H Neut % (Auto) 80.8 H Lymph % (Auto) 5.2 L [place] % (Auto) 10.5 H Eos % (Auto) 1.0 Baso % (Auto) 0.4 Absolute Neuts (auto) 9.8 H Absolute Lymphs (auto) 0.63 L Nucleated RBC % 0.4 Sodium 133 Potassium 5.6 H Chloride 95 L Carbon Dioxide 24.3 Anion Gap 14 BUN 72 H Creatinine 3.09 H Estim Creat Clear Calc 18.57 L Est GFR (MDRD) Non-Af 19 L BUN/Creatinine Ratio 23.3 H Glucose 129 H Calcium 9.9 Troponin T High Sens 271 H* D NT pro BNP II 5205 H POC Glucose 151 H ABG Data ABG results: ABG 02/19/25 16:54 Specimen Type YURY Sample Site Not entered VBG pH 7.41 VBG pO2 35 VBG HCO3 28 H VBG Total CO2 29 VBG O2 Sat (Calc) 67 VBG Base Excess 3 POC Mix VBG pCO2 Pt Tmp 44.4 O2 Delivery Device Not entered Radiography Diagnostic Testing: Clinical Impression(s) from Imaging Studies Chest X-Ray 02/19/25 16:15 IMPRESSION: Findings suggestive of vascular congestion. [facility] Dis[facility] Triage Chief Complaint: General Illness ED Midlevel Provider: Aaliyah Collins ED Provider: Enzo Chu Dx/Rx/DC Orders Clinical Impression: Acute kidney injury, Acute hyperkalemia, Generalized weakness Prescriptions: No Action (DME) handicap placcard Qty: 1 0RF Rx Instructions: Lifetime: debility coenzyme Q10 [Co Q-10] 100 mg capsule 100 mg PO DAILY cholecalciferol (vitamin D3) 100 mcg (4,000 unit) tablet 100 mcg PO DAILY (DME) spacer See Rx Instructions .ROUTE .MEDSUPPLY Qty: 1 0RF Rx Instructions: As directed (DME) lancets Misc See Rx Instructions .Route Qty: 180 1RF Rx Instructions: twice daily tamsulosin 0.4 mg capsule 0.4 mg PO DAILY Patient Comments: PT TAKES SOMETIMES pantoprazole 40 mg tablet,delayed release (DR/EC) 40 mg PO DAILY Qty: 90 1RF (DME) FreeStyle [place] 3 [place] Misc See Rx Instructions .Route Qty: 1 0RF Rx Instructions: As directed finasteride 5 mg tablet 5 mg PO DAILY Patient Comments: PT TAKES AT NIGHT ipratropium bromide 21 mcg (0.03 %) spray,non-aerosol 2 spray intranasal BID PRN (Reason: allergy symptoms) Rx Instructions: administer into each nostril ipratropium-albuterol 0.5 mg-3 mg(2.5 mg base)/3 mL solution for nebulization 3 ml inhalation TID Rx Instructions: 3 mL inhaled; loratadine [Allergy Relief (loratadine)] 10 mg tablet 10 mg PO DAILY insulin glargine [Lantus Solostar U-100 Insulin] 100 unit/mL (3 mL) insulin pen 22 unit subcut DAILY aspirin 81 mg Tablet,Delayed Release (Dr/Ec) 81 mg PO BREAKFAST Qty: 0 0RF carvedilol 3.125 mg Tablet 3.125 mg PO BIDCM Qty: 60 0RF gabapentin 300 mg Capsule 300 mg PO QHS Qty: 30 0RF lactulose 10 gram/15 mL Solution 20 g PO DAILY Qty: 946 0RF losartan 25 mg Tablet 25 mg PO DAILY Qty: 30 0RF potassium chloride 10 mEq Tablet,Er Particles/Crystals 20 meq PO BIDCM Qty: 60 0RF torsemide 20 mg tablet 20 mg PO BID Qty: 60 0RF ferrous sulfate [FeroSul] 325 mg (65 mg iron) tablet 325 mg PO DAILY Qty: 30 0RF Rx Instructions: 1 tablet daily montelukast 10 mg tablet 10 mg PO QHS Qty: 90 3RF atorvastatin 40 mg tablet 40 mg PO QODAY Qty: 45 3RF Patient Comments: PT TAKES IN EVENING insulin aspart U-100 [Novolog PenFill U-100 Insulin] 100 unit/mL cartridge 10 unit subcut TID Qty: 15 1RF Rx Instructions: hold if glucose is under 130 (DME) handicap placard See Rx Instructions .ROUTE .MEDSUPPLY Qty: 1 0RF Rx Instructions: Length of time: 5 years Diganosis: Impaired physical mobility budesonide-formoterol [Symbicort] 160-4.5 mcg/actuation HFA aerosol inhaler 2 puff inhalation BID Qty: 3 3RF Rx Instructions: administer with spacer, rinse mouth after each use Eliquis 2.5 mg tablet 2.5 mg PO BID Qty: 180 4RF (DME) OneTouch Ultra Test Strip See Rx Instructions .Route Qty: 180 1RF Rx Instructions: Check three to four times a day. albuterol sulfate [Ventolin HFA] 90 mcg/actuation HFA aerosol inhaler 2 inh INHALATION Q4H PRN (Reason: shortness of breath or wheezing) Qty: 18 6RF ranolazine 500 mg tablet extended release 12 hr 500 mg PO BID Qty: 180 3RF hydralazine 100 mg tablet 100 mg PO BID Qty: 180 3RF ropinirole 1 mg tablet 3 mg PO QHS Qty: 90 11RF Rx Instructions: administer 2-3 tablets, 1-3 hours before bedtime (DME) FreeStyle [place]ight 3 Plus Sensor Device See Rx Instructions .Route Qty: 3 0RF Rx Instructions: As directed (DME) pen needle, diabetic [Unifine Pentips] 31 gauge x 1/4 needle See Rx Instructions .ROUTE .COMPLEX Qty: 100 1RF Dose Instruction: use 3 TO 4 needles daily Rx Instructions: use 3 TO 4 needles daily nitroglycerin [Nitrostat] 0.4 mg tablet, sublingual 0.4 mg SUBLINGUAL Q5-15M PRN (Reason: chest pain) Qty: 25 2RF Primary Care Provider: Riaz Garrison Referrals: Riaz Garrison MD [Primary Care Provider] - Print Language: Turkish What to do if you have Problems For any increased pain, shortness of breath, bleeding, nausea or vomiting, chestpain, or any unexpected problems, contact your Primary Care Provider. Call [facility] ([phone]) or report to the closest Emergency Room. Call 911 if necessary. 02/19/251929 <Electronically signed by Aaliyah CARRERA> Cosigner Signature (if applicable): 02/19/251951 <Electronically signed by Enzo Chu DO> CC: Dr. Riaz Garrison MD ~ Signed [facility] Work Phone: 1(304) 194-506705-16-2025 Radiology Diagnostic study [facility]05-15-2025 Discharge summary Author Inocencio Perkins [facility] Note Date/Time February 18, 2025 2:59p m [facility] Medical Records Department [address] [place] [address] Instructions for Home/Discharge Instructions 02/18/25 8309 MR#: [id number] Acct: [id number] Name: DESIREE AMES Rep #:[id number] : 1935 89 From: Inocencio Perkins DO PCP: Dr. Riaz Garrison MD Status:ADM IN Discharge Instructions Diet Discharge Diet: 1800 Calorie Control Diet DC O2, CPAP, BIPAP needs Home O2 Discharge instructions: No Dressing / Incision Discharge Activity: Return to Normal Activity Weight Bearing Status: Full weight bearing Follow Up Care Test Results: Test results from this visit will be discussed in further detail at your follow- up appointment, if applicable. Discharge Plan Admission Admit Date/Time: 02/15/25 04:56 Primary Reason for Your Visit: Congestive heart failure Attending Provider: Inocencio Perkins Primary Care Provider: Riaz Garrison Consulting Providers: Raymond Teague Discharge Orders/Prescriptions Prescriptions: New aspirin 81 mg Tablet,Delayed Release (Dr/Ec) 81 mg PO BREAKFAST Qty: 0 0RF carvedilol 3.125 mg Tablet 3.125 mg PO BIDCM Qty: 60 0RF gabapentin 300 mg Capsule 300 mg PO QHS Qty: 30 0RF lactulose 10 gram/15 mL Solution 20 g PO DAILY Qty: 946 0RF losartan 25 mg Tablet 25 mg PO DAILY Qty: 30 0RF potassium chloride 10 mEq Tablet,Er Particles/Crystals 20 meq PO BIDCM Qty: 60 0RF torsemide 20 mg tablet 20 mg PO BID Qty: 60 0RF Continued (DME) handicap placcard Qty: 1 0RF Rx Instructions: Lifetime: debility coenzyme Q10 [Co Q-10] 100 mg capsule 100 mg PO DAILY cholecalciferol (vitamin D3) 100 mcg (4,000 unit) tablet 100 mcg PO DAILY (DME) spacer See Rx Instructions .ROUTE .MEDSUPPLY Qty: 1 0RF Rx Instructions: As directed (DME) ankita Misc See Rx Instructions .Route Qty: 180 1RF Rx Instructions: twice daily tamsulosin 0.4 mg capsule 0.4 mg PO DAILY Patient Comments: PT TAKES SOMETIMES pantoprazole 40 mg tablet,delayed release (DR/EC) 40 mg PO DAILY Qty: 90 1RF (DME) FreeStyle [place] 3 [place] Misc See Rx Instructions .Route Qty: 1 0RF Rx Instructions: As directed finasteride 5 mg tablet 5 mg PO DAILY Patient Comments: PT TAKES AT NIGHT ipratropium bromide 21 mcg (0.03 %) spray,non-aerosol 2 spray intranasal BID PRN (Reason: allergy symptoms) Rx Instructions: administer into each nostril ipratropium-albuterol 0.5 mg-3 mg(2.5 mg base)/3 mL solution for nebulization 3 ml inhalation TID Rx Instructions: 3 mL inhaled; loratadine [Allergy Relief (loratadine)] 10 mg tablet 10 mg PO DAILY insulin glargine [Lantus Solostar U-100 Insulin] 100 unit/mL (3 mL) insulin pen 22 unit subcut DAILY montelukast 10 mg tablet 10 mg PO QHS Qty: 90 3RF atorvastatin 40 mg tablet 40 mg PO QODAY Qty: 45 3RF Patient Comments: PT TAKES IN EVENING insulin aspart U-100 [Novolog PenFill U-100 Insulin] 100 unit/mL cartridge 10 unit subcut TID Qty: 15 1RF Rx Instructions: hold if glucose is under 130 (DME) handicap placard See Rx Instructions .ROUTE .MEDSUPPLY Qty: 1 0RF Rx Instructions: Length of time: 5 years Diganosis: Impaired physical mobility budesonide-formoterol [Symbicort] 160-4.5 mcg/actuation HFA aerosol inhaler 2 puff inhalation BID Qty: 3 3RF Rx Instructions: administer with spacer, rinse mouth after each use Eliquis 2.5 mg tablet 2.5 mg PO BID Qty: 180 4RF (DME) OneTouch Ultra Test Strip See Rx Instructions .Route Qty: 180 1RF Rx Instructions: Check three to four times a day. albuterol sulfate [Ventolin HFA] 90 mcg/actuation HFA aerosol inhaler 2 inh INHALATION Q4H PRN (Reason: shortness of breath or wheezing) Qty: 18 6RF ranolazine 500 mg tablet extended release 12 hr 500 mg PO BID Qty: 180 3RF hydralazine 100 mg tablet 100 mg PO BID Qty: 180 3RF ropinirole 1 mg tablet 3 mg PO QHS Qty: 90 11RF Rx Instructions: administer 2-3 tablets, 1-3 hours before bedtime (DME) noodls Dwight 3 Plus Sensor Device See Rx Instructions .Route Qty: 3 0RF Rx Instructions: As directed (DME) pen needle, diabetic [Unifine Pentips] 31 gauge x 1/4 needle See Rx Instructions .ROUTE .COMPLEX Qty: 100 1RF Dose Instruction: use 3 TO 4 needles daily Rx Instructions: use 3 TO 4 needles daily nitroglycerin [Nitrostat] 0.4 mg tablet, sublingual 0.4 mg SUBLINGUAL Q5-15M PRN (Reason: chest pain) Qty: 25 2RF Changed ferrous sulfate [FeroSul] 325 mg (65 mg iron) tablet 325 mg PO DAILY Qty: 30 0RF Rx Instructions: 1 tablet daily Discontinued lactulose 20 gram/30 mL solution 20 g PO BID PRN (Reason: constipation) Patient Comments: pt states he takes it sometimes daily Rx Instructions: 30 ml once or twice daily for constipation gabapentin 100 mg capsule 100 mg PO DAILY Patient Comments: PT TAKES AT BEDTIME furosemide 20 mg tablet 40 mg PO BID Referrals / Follow Up: Riaz Garrison MD [Primary Care Provider] - Laura Farias PA [Med Staff - [facility]] - See Referral Note (In 2 weeks, call for an appointment) Disposition Disposition (needs filled in before D/C Order can be placed): Home, Self Care 02/18/25 3895<Electronically signed by Inocencio Perkins DO>Inocencio Perkins DO CC: Dr. Riaz Garrison MD; Dr. Raymond Teague DO ~ Signed [facility] Work Phone: 1(949) 260-959905-15-2025 [facility]05-14-2025 Progress note Author Torri Van [facility] Note Date/Time February 17, 2025 9:37a m [facility] Medical Records Department [address] [place] [address] Progress Note 02/17/25 0935 MR#: [id number] Acct: [id number] Name: DESIREE AMES Rep #:[id number] : 1935 89 From: Torri Van MD PCP: Dr. Riaz Garrison MD Status:ADM IN Location: [place] [id number] Progress Note Chart reviewed, patient not seen. Gabapentin not restarted. Continue the melatonin and promote sleep hygiene. Iron levels checked on admission - level isvery low. Recommend iron supplementation per primary team. Followup outpatient with neurology or sleep as symptoms appear to be related to restless legs with likely aumentation to the upper extremities as well - which can happen in setting severe Iron deficiency. Will sign off. 02/17/25 0937 <Electronically signed by Torri Van MD> Torri Van MD Cosigner Signature (if applicable): CC: ~ Signed [facility] Work Phone: 1(299) 980-946405-13-2025 Progress note Author Inocencio Perkins [facility] Note Date/Time February 16, 2025 6:33p m [facility] Medical Records Department [address] [place] [address] Progress Note - Hospitalist 02/16/251818 MR#: [id number] Acct: [id number] Name: CECILIODESIREE PLASCENICA Maverick Rep #:[id number] : 1935 89 From: Inocencio Perkins DO PCP: Dr. Riaz Garrison MD Status:ADM IN Location: [place] [address] Reason for Visit Reason for Visit: Diagnoses Elevated white blood cell count, unspecified (02/15/25) Obesity, class 1 (02/15/25) Obstructive sleep apnea (adult) (pediatric) (02/15/25) Polyneuropathy, unspecified (02/15/25) Unspecified atrial fibrillation (02/15/25) Unspecified atrial flutter (02/15/25) Acute on chronic diastolic (congestive) heart failure (02/15/25) Acute bronchitis, unspecified (02/15/25) Fasciculation (02/15/25) Unsteadiness on feet (02/15/25) Other specified abnormal findings of blood chemistry (02/15/25) Subjective Subjective Patient was seen and examined today, he still complaining of shortness of breathon minimal exertion. Patient is not on any supplemental oxygen at rest however. Objective Data Objective Data Vital Signs: Vital Signs Temp Pulse Resp BP Pulse Ox O2 Del Method 97.4 F L 73 18 115/59 L 96 Room Air 02/16/25 15:30 02/16/25 15:30 02/16/25 15:30 02/16/25 15:30 02/16/25 15:30 02/16/25 15:30 Oxygen Delivery Method Room Air Weight: 104.1 kg Body Mass Index (BMI) 34.9 Intake & Output: Intake and Output for Last 24 Hours 02/14/25 02/15/25 02/16/25 23:59 23:59 23:59 Intake Total 750 / 750 360 / 360 Balance 750 / 750 360 / 360 Lab / Micro Data 02/16/25 05:32 02/16/25 05:32 Labs: Laboratory Results - last 24 hr 02/15/25 23:01: POC Glucose 169 H 02/16/25 05:32: WBC 11.4 H, RBC 3.14 L, Hgb 9.6 L, Hct 28.9 L, MCV 92.0, MCH 30.6, MCHC 33.2, RDW Std Deviation 45.1 H, RDW Coeff of Justin 13.8, Plt Count 424,MPV 10.0, Immature Gran % (Auto) 1.100 H, Neut % (Auto) 81.4 H, Lymph % (Auto) 7.7 L, [place] % (Auto) 9.3, Eos % (Auto) 0.4, Baso % (Auto) 0.1, Absolute Neuts (auto) 9.3 H, Absolute Lymphs (auto) 0.88, Nucleated RBC % 0, Sodium 134, Potassium 4.8, Chloride 99, Carbon Dioxide 21.1, Anion Gap 14, BUN 52 H, Creatinine 2.06 H, Estim Creat Clear Calc 29.49 L, Est GFR (MDRD) Non-Af 31 L, BUN/Creatinine Ratio 25.1 H, Glucose 167 H, Calcium 9.9, Total Bilirubin 0.68, AST 32, ALT 27, Alkaline Phosphatase 85, Total Protein 7.0, Albumin 3.5, Globulin 3.5, Albumin/Globulin Ratio 1.0 02/16/25 07:49: POC Glucose 159 H 02/16/25 11:34: POC Glucose 151 H 02/16/25 16:24: POC Glucose 141 H Micro: Microbiology 02/15/25 07:00 Mucosa - Nose Respiratory Panel (PCR) - Final 02/15/25 03:43 Mucosa - Nose SARS-CoV-2, Influenza & RSV (PCR) - Final Radiography Diagnostic Testing: Radiology Impression Brain MRI 02/15/25 15:28 IMPRESSION: No acute intracranial abnormality. No suspicious intracranial mass, abnormal parenchymal or leptomeningeal enhancement. Moderate chronic microvascular ischemia and involutional changes. Reading Location: [facility], [facility]1983 Rhythm Strip Rhythm Strip: Atrial flutter Rate: 82 Ectopy: PVC(s) Physical Exam Const alert, oriented x3 and no apparent distress General Appearance: cooperative, well kempt and well developed Orientation / Consciousness: awake, oriented to person, oriented to place and oriented to time HEENT normocephalic, head/scalp atraumatic and moist oral mucous membranes Eyes PERRL, EOMs intact bilaterally and conjunctivae normal Neck supple, no JVD, thyroid normal and no carotid bruits General: trachea midline Resp Resp Narrative: Patient's respirations are shallow at times and rapid, breath sounds are diminished bilaterally Auscultation: Negative for rales, rhonchi or wheezes Cardio S1 normal heart sound, S2 normal heart sound, no murmurs, no rub and no gallops Cardio Narrative: Heart rate and rhythm is irregular GI normal to inspection, nondistended, normoactive bowel sounds, soft to palpation,non-tender and non-distended Extremity Extremity Narrative: Generalized edema is noted over the lower extremities bilaterally Skin no rashes or lesions noted General Skin Exam: no breakdown Neuro oriented x3, CN's II-XII intact bilaterally, moves all extremities, no focal motor deficits and no sensory deficits noted Sensorium / Orientation: awake and alert Speech: speech normal Psych affect normal Assessment & Plan Assessment/Plan (1) Chronic systolic (congestive) heart failure: PLAN: Plan 1. Acute on chronic systolic congestive heart failure-continue IV Lasix, accurate I's and O's have not been obtained by nursing, I talked with the chargenurse today about this, patient will continue on IV Lasix and losartan #2 chronic atrial fibrillation-patient is on Eliquis, I will add a small dose ofcarvedilol and monitor his heart rate. #3 movement disorder-type unclear, teleneurology is participating in his care, workup has been unremarkable so far #4 iron deficiency anemia-etiology unclear, patient will receive IV Venofer again today #5 chronic kidney disease stage IIIb-BMP will be repeated tomorrow #6 cardiomyopathy-type unclear, again patient will be placed on a beta-wagner and is on losartan at this time, he will need follow-up with cardiology as an outpatient #7 pulmonary hypertension-complicates care, management, recovery, and prognosis Total clinical time spent by myself addressing the patient's medical issues, reviewing all of his data, and collaborating with patient's care team: 35- minutes Charges/Coding Visit Charges Inpatient E&M: 87304 Subs Hosp L2 02/16/25 1863 <Electronically signed by Inocencio Perkins DO> Cosigner Signature (if applicable): CC: ~ Signed [facility] Work Phone: [phone] Progress note Author Torri Van [facility] Note Date/Time February 16, 2025 11:14 am [facility] Medical Records Department [address] [place] [address] Progress Note - Neurology 02/16/25 1108 MR#: [id number] Acct: [id number] Name: DESIREE AMES Rep #:[id number] : 1935 89 From: Torri Van MD PCP: Dr. Riaz Garrison MD Status:ADM IN Location: [place] [id number] Assessment and Plan: Neuro Assessment/Plan DESIREE AMES is a 89 M with a past medical history of CHF, HTn, HLD, DM2, neuropathy, being evaluated by Teleneurology for abnormal movements. These have been present much of his life but significantly worsened over the last 3months shortly after a viral infection. Could be related to post-infectious syndrome although this is less common in adults. For the movemnts themselves, are intermittent, appear to be most present at rest and notably wake patient up fromsleep which is atypical. No clear psychiatric symptoms to suggest why there are some dyskinetic and choreiform symptoms. For now would assess for postential structural abnormalities that could point to his symptoms. No clear pharmacologic cause at this time. Since symptoms worsened around time of viral infection 3 months ago, may be difficult to pinpoint the cause as could have been a situational issues (like severe hyperglycemia) that happened during the infection. Imaging is normal, at this time movements are not totally consistent with choreiform or dyskinetic movements and not positional or tremors. They seem morelike restless leg movements and there is a component of some akathisia and variable with sleep Plan: - recommend restarting gabapentin at 300mg at night to assess for improvement - promote healthy sleep hygiene - schedule melatonin at 8pm at night - obtain iron studies I personally attended this patient and spent a total time of 30minutes evaluating this patient including clinical assessment, review of chart, medical history imaging, and determining appropriate treatment and workup. Subject: Neurology Subjective On further review today, patient states when he has good sleep movements are less and that the movements are more in the legs than the arms. Viewed another event and was bilateral involuntary movement of legs. EEG Results Procedure Details EEG Procedure Details: DESIREE AMES is a 89 year old M with a past medical history of , who presents for evaluation of Electroencephalogram on DATE at TIME Objective Data Objective Data Vital Signs: Vital Signs Temp Pulse Resp BP Pulse Ox O2 Del Method 97.5 F L 75 18 94/54 L 98 Room Air 02/16/25 09:45 02/16/25 09:45 02/16/25 09:45 02/16/25 09:45 02/16/25 09:45 02/16/25 09:45 Oxygen Delivery Method Room Air Weight: 104.1 kg Body Mass Index (BMI) 34.9 Intake & Output: Intake and Output for Last 24 Hours 02/14/25 02/15/25 02/16/25 23:59 23:59 23:59 Intake Total 750 / 750 Balance 750 / 750 Lab / Micro Data 02/16/25 05:32 02/16/25 05:32 Labs: Laboratory Results - last 24 hr 02/15/25 11:37: POC Glucose 216 H 02/15/25 16:27: POC Glucose 132 H 02/15/25 23:01: POC Glucose 169 H 02/16/25 05:32: WBC 11.4 H, RBC 3.14 L, Hgb 9.6 L, Hct 28.9 L, MCV 92.0, MCH 30.6, MCHC 33.2, RDW Std Deviation 45.1 H, RDW Coeff of Justin 13.8, Plt Count 424,MPV 10.0, Immature Gran % (Auto) 1.100 H, Neut % (Auto) 81.4 H, Lymph % (Auto) 7.7 L, [place] % (Auto) 9.3, Eos % (Auto) 0.4, Baso % (Auto) 0.1, Absolute Neuts (auto) 9.3 H, Absolute Lymphs (auto) 0.88, Nucleated RBC % 0, Sodium 134, Potassium 4.8, Chloride 99, Carbon Dioxide 21.1, Anion Gap 14, BUN 52 H, Creatinine 2.06 H, Estim Creat Clear Calc 29.49 L, Est GFR (MDRD) Non-Af 31 L, BUN/Creatinine Ratio 25.1 H, Glucose 167 H, Calcium 9.9, Total Bilirubin 0.68, AST 32, ALT 27, Alkaline Phosphatase 85, Total Protein 7.0, Albumin 3.5, Globulin 3.5, Albumin/Globulin Ratio 1.0 02/16/25 07:49: POC Glucose 159 H Micro: Microbiology 02/15/25 07:00 Mucosa - Nose Respiratory Panel (PCR) - Final 02/15/25 03:43 Mucosa - Nose SARS-CoV-2, Influenza & RSV (PCR) - Final Radiography Diagnostic Testing: Radiology Impression Echocardiogram 02/15/25 05:05 Interpretation Summary Normal LV size. Moderate concentric left ventricular hypertrophy. The left ventricular ejection fraction is 40 %. There is mild to moderate global hypokinesis of the left ventricle. The left atrium is severely enlarged. The right atrium is mildly enlarged. Mild-Moderate (1-2+) eccentric mitral valve insufficiency. Compared to previous study, the left ventricular systolic function has worsened.. Ordering Physician: Raymond Teague Performed By: Dalton Perez RCS Brain MRI 02/15/25 15:28 IMPRESSION: No acute intracranial abnormality. No suspicious intracranial mass, abnormal parenchymal or leptomeningeal enhancement. Moderate chronic microvascular ischemia and involutional changes. Reading [facility] Rhythm Strip Rhythm Strip: Atrial flutter Rate: 82 Ectopy: PVC(s) Physical Exam Narrative Neurologic Exam -? NEURO: -? Mental Status: The patient was alert and oriented to time, place, andperson. Normal recent/remote memory, concentration, and general fund of knowledge. -? Language: speech is intermittently slurred? Naming, repetition, fluency, and comprehension intact. -? Cranial Nerves: PERRL 2 mm/brisk. b/l eye ptosis, no facial asymmetry, facial sensation intact, hearing intact -? Motor: normal bulk, tone, and strength throughout. No pronator drift or satelliting. Upper and lower extremities equal bilaterally. -? -? Tone: is normal and bulk is normal, no spasticity, no rigidity, no cogwheeling The movements today appear more voluntary movements with no clear stereotyped component, more prominent in the legs than the arms. These appear to be dancing movements, not clearly choreiform though. -? Sensation- deferred -? Coordination:deferred - Gait: Patient with slightly stooped gait, severe dyspnea near then end ofthe walk. Steps were in stride, turns appeared to be in stride. Had to walk witha walker. 02/16/25 1114 <Electronically signed by Torri Van MD> Cosigner Signature (if applicable): CC: ~ Signed [facility] Work Phone: [phone] Consult note Author Torri Van [facility] Note Date/Time February 16, 2025 12:33 am [facility] Medical Records Department [address] [place] [address] Consultation - Neurology 02/15/25 1255 MR#: [id number] Acct: [id number] Name: DESIREE AMES Rep #:[id number] : 1935 89 From: Torri Van MD PCP: Dr. Riaz Garrison MD Status:ADM IN Location: [place] [address] Assessment and Plan: Neuro Assessment/Plan DESIREE AMES is a 89 M with a past medical history of CHF, HTn, HLD, DM2, neuropathy, being evaluated by Teleneurology for abnormal movements. These have been present much of his life but significantly worsened over the last 3months shortly after a viral infection. Could be related to post-infectious syndrome although this is less common in adults. For the movemnts themselves, are intermittent, appear to be most present at rest and notably wake patient up fromsleep which is atypical. No clear psychiatric symptoms to suggest why there are some dyskinetic and choreiform symptoms. For now would assess for postential structural abnormalities that could point to his symptoms. No clear pharmacologic cause at this time. Since symptoms worsened around time of viral infection 3 months ago, may be difficult to pinpoint the cause as could have been a situational issues (like severe hyperglycemia) that happened during the infection but was Plan: - MRI Brain w/wo con - recomend stop gabapentin and assess if contributing to his abnormal movements - will consider medication to help control I personally attended this patient and spent a total time of 60minutes evaluating this patient including clinical assessment, review of chart, medical history imaging, and determining appropriate treatment and workup. HPI Consult Data Date of Consult: 02/15/25 HPI Narrative HPI Narrative: HPI Narrative DESIREE AMES, is a 89 M with a past medical history of essential hypertension; on hydralazine BID and furosemide BID, hyperlipidemia; on atorvastatin, obesity;with BMI of 32.7 this admission, MARIXA; on BiPAP, diabetes mellitus type 2; of unknown control on insulin glargine 22U sq daily plus insulin aspart 10U TID, diabetic neuropathy; on gabapentin, history of chronic diastolic CHF; with preserved left ventricular ejection fraction, coronary artery disease; status post distal RCA stent (1997) on ranolazine plus as needed SL NTG, chronic atrialfibrillation/flutter; on aspirin, history of AAA; s/p repair (1998), history of tobacco abuse (quit 2007); with subsequent COPD, chronic kidney disease; stage III-IV with baseline serum creatinine of ~2.3 mg/dL with a BUN of ~37 mg/dL, MACHELLE; on ferrous sulfate, history of severe peripheral vascular disease with lower extremity claudication; s/p endarterectomy of Right iliac and Left groin (11/2023), history of vertigo likely due to BPPV, restless leg syndrome; on ropinirole, BPH; on tamsulosin and finasteride, GERD; on pantoprazole, osteoarthritis, spinal stenosis and degenerative disc disease; with chronic low back pain and recent admission here from December 15, 2024 to December 17, 2024 for treatment of AE COPD secondary to acute Influenza A complicated by hypoxia who presents to [facility] ER complaining of shortness of breath andlower extremity edema. Mr. Ames reports his symptoms began approximately 3 weeks prior to admission with a gradual-onset of dyspnea on exertion that progressed to shortness of breath at rest. He also admits to increasing swelling in both lower extremitiesand cough productive of white sputum. He states his symptoms are similar to hisprevious CHF exacerbations. He also admits to worsening neuropathy with patientfeeling like he has shoes on all the time in addition to intermittent jerking and unsteady gait when walking. He was already previously set up to have an outpatient head CT done but he has not had a chance to undergo this testing yet. He denies associated fever, chills, chest pain, nausea, vomiting, diarrhea, constipation, abdominal pain, dysuria, headache or rash. In the ER he was notedto have an elevated NT pro-BNP II of 12,152 pg milliliter present on admission with a CXR suggestive of appearance of some increased perihilar markings with a lower zone predominance and possibly some septal thickening with small pleural effusion suggested on the lateral view which may represent mild pulmonary edema with clinical correlation recommended with cardiac silhouette again mildly largefor technique consistent with AE of chronic diastolic CHF; with preserved LVEF complicated by elevated troponin T of 83 ng/L likely due to Acute Cardiac Strainalong with clinical evidence of Acute Bronchitis with Leukocytosis of 11.2 K present on admission and he was then admitted to the PCU for ongoing care for state that is expected to extend beyond 2 midnights. Neurology consulted for Tremors Neurologic History Hs been having this jerking movement of late. Has had it a while (per longer than a decade, but pt states its only been recent). It was light before, now in the last couple months has gotten worse. The movements are keeping him from doing anything and will wake up out of sleep. mostly these movements will happen at night. Pt has not seen a neurologist for these. When he has these jerking movements and dyskinesias, they happen all the time. Nothing makes it worse (does not worsen with postural changes). PAtient does not stand very much anymore but when walking this does not happen as much. Walks with a walker or a cane. Has some lightheadedness and will have falls from that. Symptoms are worsesince he had the flu - this was in December. Over the last 5 years, through last summer things were relatively stable, things did not get worse as badly. Has fallen 4x since October and gets lightheaded with some of these events. Sometimes will fall asleep in chair and fall forward. Most of the falls are happening when standing, he will suddenly lose balance. Mostly he came to the hospital this time because of poor breathing. Has also hadinc weakness in the legs - that has been since December. Pt started gabapentin 1 month prior, had the events get worse before the gabapentin started and he states it did not get worse after he stopped it. Neurologic Exam -? General: Laying comfortably in bed; in no acute distress. -? HENT: Normal oropharynx and mucosa. Normal external appearance of ears and nose. Exophthalmos. -? Neck: Supple, no pain or tenderness -? CV:? No peripheral edema. -? Pulmonary:? Normal respiratory effort. -? Ext: No cyanosis, edema, or deformity -? Skin: No rash. Normal palpation of skin.? -? Musculoskeletal: full range of motion; no joint tenderness. Normal digits and nails by inspection. No clubbing. -? NEURO: -? Mental Status: The patient was alert and oriented to time, place, andperson. Normal recent/remote memory, concentration, and general fund of knowledge. -? Language: speech is intermittently slurred? Naming, repetition, fluency, and comprehension intact. -? Cranial Nerves: PERRL 2 mm/brisk. b/l eye ptosis, eye closure strong,EOMI, visual lynn full, no facial asymmetry, facial sensation intact, hearing intact, tongue midline, no evidence of atrophy or fibrillations. -? Motor: normal bulk, tone, and strength throughout. No pronator drift or satelliting. Upper and lower extremities equal bilaterally. -? 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 Tone: is normal and bulk is normal, no spasticity, no rigidity, no cogwheeling There are intermittent dyskinesias b/l in the legs, in the arms there is some myoclonus with dyskinetic movements -? Sensation- Intact to light touch bilaterally -? Coordination: No dysmetria on [id number], finger follow finger or [id number]. -? deferred Gait [facility] Medical History Right carotid bruit Stable angina Kidney disease GERD (gastroesophageal reflux disease) Irregular heart beat Myocardial infarct Complicated urinary tract infection Urinary tract infection Colonic mass Controlled type 2 diabetes mellitus Acute respiratory insufficiency Chronic kidney disease Chronic anemia Bilateral edema of lower extremity Urinary retention Fatigue Pleural effusion (HFpEF) heart failure with preserved ejection fraction Pneumonia Colon polyp Lightheadedness Chronic constipation Anemia Obstructive sleep apnea Coronary artery disease Gastroesophageal reflux disease Allergic rhinitis Hyperlipidemia Urinary retention Wears hearing aid Wears dentures Wears glasses Cancer History of steroid therapy Ambulates with cane Walker as ambulation aid Arthritis Kidney stone Easy bruising Back pain Injury of back History of hiatal hernia Former smoker BiPAP (biphasic positive airway pressure) dependence Asthma Hoarseness Chronic cough Leg cramps History of pain when walking History of stress test History of heart attack History of irregular heartbeat Recurrent urinary tract infection ALMIEDA (dyspnea on exertion) Chest pain Right leg swelling Patellar bursitis of right knee Asthma-COPD overlap syndrome Abdominal aortic aneurysm (AAA) Peripheral vascular disease of extremity with claudication Rectus sheath hematoma Pre-syncope Essential (primary) hypertension Restless legs syndrome Daytime hypersomnia Somatic dysfunction of pelvic region DDD (degenerative disc disease), lumbar Overweight Seasonal allergies Carotid bruit Atherosclerotic heart disease of [place] coronary artery without angina pectoris PVD (peripheral vascular disease) COPD (chronic obstructive pulmonary disease) Home Medications ?Medication ?Instructions ?Recorded ?Last Taken ?Type handicap placcard #1 ea 09/28/19 Unknown Rx coenzyme Q10 100 mg capsule (Co 100 mg PO DAILY supple ment 05/03/20 01/29/25 History Q-10) cholecalciferol (vitamin D3) 100 100 mcg PO DAILY supp lement 11/03/20 01/29/25 History mcg (4,000 unit) tablet spacer #1 ea 01/12/21 Unknown Rx lancets #180 ea 07/18/23 Unknown Rx lactulose 20 gram/30 mL oral 20 g PO BID PRN constipat ion 05/01/24 Unknown History solution montelukast 10 mg tablet 10 mg PO QHS Respiratory #90 tabs 05/04/24 01/28/25 Rx atorvastatin 40 mg tablet 40 mg PO QODAY cholesterol # 45 tabs 05/13/24 01/27/25 Rx tamsulosin 0.4 mg capsule 0.4 mg PO DAILY 06/01/24 History finasteride 5 mg tablet 5 mg PO DAILY 06/28/2401/28 History insulin aspart U-100 100 unit/mL 10 unit (0.1 mL) subc ut TID #15 mL 10/07/24 01/29/25 Rx subcutaneous cartridge (Novolog PenFill U-100 Insulin aspart) handicap placard #1 ea 10/12/24 Unknown Rx budesonide-formoterol HFA 160 2 puff inhalation BID co pd #3 ea 10/16/24 01/28/25 Rx mcg-4.5 mcg/actuation aerosol inhaler (Symbicort) pantoprazole 40 mg tablet,delayed 40 mg PO DAILY reflu x #90 tabs 11/30/24 01/29/25 Rx release apixaban 2.5 mg tablet (Eliquis) 2.5 mg PO BID atrial fibrillation 12/14/24 01/29/25 Rx #180 tabs ipratropium bromide 21 mcg (0.03 2 spray intranasal BI D PRN allergy 12/14/24 Unknown History %) nasal spray symptoms blood sugar diagnostic (OneTouch #180 ea 12/21/24 Unkn own Rx Ultra Test strips) albuterol sulfate 90 mcg/actuation 2 inh inhalation Q4 H PRN shortness 01/04/25 01/28/25 Rx aerosol inhaler (Ventolin HFA) of breath or wheezing # 18 grams hydralazine 100 mg tablet 100 mg PO BID hypertension # 180 01/26/25 01/29/25 Rx tabs ranolazine 500 mg tablet,extended 500 mg PO BID #180 t abs 01/26/25 01/29/25 Rx release,12 hr ropinirole 1 mg tablet 3 mg (3 x 1 mg) PO QHS restl ess 01/26/25 01/28/25 Rx leg #90 tabs gabapentin 100 mg capsule 100 mg PO DAILY 01/29/25 History ipratropium 0.5 mg-albuterol 3 mg 3 ml inhalation TID SOB &/OR 01/29/25 01/28/25 History (2.5 mg base)/3 mL nebulization WHEEZING soln loratadine 10 mg tablet (Allergy 10 mg PO DAILY allerg ies 01/29/25 01/28/25 History Relief (loratadine)) 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 meter,continuous #1 ea 02/01/25 Unknown Rx (FreeStyle [place] 3 [place]) ferrous sulfate 325 mg (65 mg 325 mg PO 3XW low iron 0 02/04/25 Unknown History iron) tablet (FeroSul) 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 sensor (FreeStyle #3 ea 02/10/25 Unknown Rx [place] 3 Plus Sensor device) furosemide 20 mg tablet 40 mg PO BID 02/15/25 Unknow n History insulin glargine 100 unit/mL (3 22 unit subcut DAILY 0 02/15/25 Unknown History mL) subcutaneous pen (Lantus Solostar U-100 Insulin) nitroglycerin 0.4 mg sublingual 0.4 mg sublingual Q5-1 5M PRN chest 02/15/25 Unknown Rx tablet (Nitrostat) pain #25 tabs pen needle, diabetic 31 gauge x #100 ea 02/15/25 Unkno wn Rx 1/4 (Unifine Pentips) Allergy/AdvReac Type Severity Reaction Status Date / Time cilostazol (From Pletal) Allergy Unknown Verified 02/04/25 14:00 felodipine Allergy Hives Verified 02/04/25 14:00 levofloxacin Allergy Hives Verified 02/04/25 14:00 Sulfa (Sulfonamide Allergy Unknown Verified 02/04/25 14:00 Antibiotics) isosorbide AdvReac Intermediate low BP Verified 02/04/25 14:00 Family History Father Diabetes Cancer Prostate cancer Mother Dementia Brother Parkinsons Brother Cancer H/O vascular surgery Surgical History History of appendectomy History of surgical procedure H/O vascular surgery History of surgical procedure History of transurethral resection of prostate History of endarterectomy (07/2018) History of left heart catheterization (03/2014) History of coronary artery stent placement (02/17/08) History of vascular surgery (08/2018) History of hernia repair H/O aortic aneurysm repair (11/1998) Social History household members: spouse 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 status: 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 Smoking Status: Former smoker quit date: 08/07/08 pack-years: 2 Tobacco: How many years used: 52 Electronic Cigarette Use: not used how long ago did patient quit smokin years ago alcohol intake: current alcohol intake frequency: holidays/special occasions only details: hx of alcohol abuse substance use type: does not use caffeine: No what type of physical activity do you participate in: other details: Nustep frequency: 5-6 times per week duration: 15-30 minutes/day seatbelt use: always do you feel safe at home: Yes Vital Signs Vital Signs Vital Signs: 02/15/25 02:58 02/15/25 03:05 02/15/25 03:22 Temperature 98.3 F Temperature Source Oral Pulse Rate 81 Pulse Strength Respiratory Rate 26 H Respiratory Effort Normal Respiratory Depth Normal Respiratory Pattern Normal Blood Pressure 144/100 H Blood Pressure Mean 114 Blood Pressure Source Blood Pressure Position Blood Pressure Location Pulse Ox 93 95 Oxygen Delivery Method Room Air Room Air Room Air 02/15/25 03:53 02/15/25 04:16 02/15/25 05:29 Temperature 98.1 F 98.1 F 98.1 F Temperature Source Oral Oral Pulse Rate 81 90 75 Pulse Strength Respiratory Rate 16 19 H 22 H Respiratory Effort Respiratory Depth Respiratory Pattern Blood Pressure 149/91 H 150/101 H 161/97 H Blood Pressure Mean 110 117 118 Blood Pressure Source Blood Pressure Position Blood Pressure Location Pulse Ox 94 96 97 Oxygen Delivery Method Room Air Room Air 02/15/25 05:45 02/15/25 08:10 02/15/25 09:39 Temperature Temperature Source Pulse Rate Pulse Strength Normal (2+) Respiratory Rate Respiratory Effort Non-Labored Respiratory Depth Respiratory Pattern Blood Pressure Blood Pressure Mean Blood Pressure Source Blood Pressure Position Blood Pressure Location Pulse Ox 96 Oxygen Delivery Method Room Air Room Air 02/15/25 09:40 02/15/25 09:45 02/15/25 09:47 Temperature 97.3 F L 97.3 F L Temperature Source Temporal Temporal Pulse Rate 90 90 Pulse Strength Respiratory Rate 18 18 Respiratory Effort Normal Non-Labored Respiratory Depth Normal Respiratory Pattern Normal Blood Pressure 149/76 H 149/76 H Blood Pressure Mean 100 100 Blood Pressure Source Monitor Blood Pressure Position Semi-Fowlers Blood Pressure Location Right Arm Pulse Ox 93 93 Oxygen Delivery Method Room Air Room Air Room Air 02/15/25 09:58 Temperature Temperature Source Pulse Rate 90 Pulse Strength Respiratory Rate Respiratory Effort Respiratory Depth Respiratory Pattern Blood Pressure 149/76 H Blood Pressure Mean Blood Pressure Source Blood Pressure Position Blood Pressure Location Pulse Ox Oxygen Delivery Method Weight Weight: 103.7 kg Body Mass Index (BMI) 34.7 EEG Results Procedure Details EEG Procedure Details: DESIREE AMES is a 89 year old M with a past medical history of , who presents for evaluation of Electroencephalogram on DATE at TIME Lab / Micro Data 02/15/25 02:42 02/15/25 02:42 Labs: Laboratory Results - last 24 hr 02/15/25 02:42: WBC 11.2 H, RBC 2.89 L, Hgb 9.5 L, Hct 27.7 L, MCV 95.8 H, MCH 32.9 H, MCHC 34.3, RDW Std Deviation 46.5 H, RDW Coeff of Justin 13.9, Plt Count 428, MPV 10.2, Immature Gran % (Auto) 0.800, Neut % (Auto) 83.7 H, Lymph % (Auto) 6.4 L, [place] % (Auto) 8.8, Eos % (Auto) 0.1, Baso % (Auto) 0.2, Absolute Neuts (auto) 9.4 H, Absolute Lymphs (auto) 0.72 L, Nucleated RBC % 0, Sodium 133, Potassium 4.1, Chloride 97 L, Carbon Dioxide 21.0, Anion Gap 15, BUN 48 H, Creatinine 2.12 H, Estim Creat Clear Calc 27.81 L, Est GFR (MDRD) Non-Af 30 L, BUN/Creatinine Ratio 22.7 H, Glucose 190 H, Hemoglobin A1c 6.6 H, Calcium 9.5, Troponin T High Sens 83 H* D, [place] [address] H 02/15/25 04:49: Magnesium 2.0, Iron 18 L, TIBC 268, Iron Saturation 7.0 L, Unsaturated IBC 250, Ferritin 100, Troponin T Hi Sens 2 Hr 82 H*, TSH 2.110 02/15/25 06:22: Phosphorus 3.2, Troponin T Hi Sens 4Hr 69 H*, Triglycerides 60, Cholesterol 117, LDL Cholesterol, Calc 66, VLDL Cholesterol 12, HDL Cholesterol 39 L, Cholesterol/HDL Ratio 3.02 02/15/25 08:27: POC Glucose 174 H 02/15/25 11:37: POC Glucose 216 H Micro: Microbiology 02/15/25 07:00 Mucosa - Nose Respiratory Panel (PCR) - Final 02/15/25 03:43 Mucosa - Nose SARS-CoV-2, Influenza & RSV (PCR) - Final Rhythm Strip Rhythm Strip: Atrial flutter Rate: 82 Ectopy: PVC(s) Imaging Radiology Impression Chest X-Ray 02/15/25 03:25 IMPRESSION: There is again appearance of some increased perihilar markings with a lower zonepredominance and possibly some septal thickening now with some small pleural effusions suggested on the lateral view which may represent mild pulmonary edema, clinically correlate. Cardiac silhouette is again mildly large for technique. Reading Location: [id number] Brain CT 02/15/25 05:37 IMPRESSION: CHRONIC CHANGES. NO ACUTE FINDINGS. Reading Location: [id number] Active Medications Active Medications Active Medications: Current Medications Generic Name Dose Route Start Last Admin Trade Name Freq PRN Reason Stop Dose Admin Acetaminophen 650 mg 02/15/25 05:16 02/15/25 12:25 Acetaminophen 325 Mg Tablet PO 650 mg Q6H PRN PRN Administration Pain 1-10 Or Fever>100.7 Al Hydroxide/Mg Hydroxide 30 ml 02/15/25 05:16 Mag Hydrox/Al Hydrox/Simeth 30 Ml Udc PO Q6H PRN PRN Gastric Burning Albuterol Sulfate 2.5 mg 02/15/25 05:16 Albuterol 2.5 Mg/3 Ml Vial.Neb. INHALATION Q4H PRN PRN shortness of breath/wheezing Albuterol Sulfate 2.5 mg 02/15/25 06:00 02/15/25 12:52 Albuterol 2.5 Mg/3 Ml Vial.Neb. INHALATION 2.5 mg Q6HWA.RT AMMY Administration Apixaban 2.5 mg 02/15/25 10:00 02/15/25 09:57 Apixaban 2.5 Mg Tablet ([facility]) PO 2.5 mg BID MAMY Administration Aspirin 81 mg 02/15/25 08:00 02/15/25 09:58 Aspirin E.C. 81 Mg Tablet PO 81 mg BREAKFAST AMMY Administration Atorvastatin Calcium 40 mg 02/16/25 22:00 Atorvastatin Calcium 40 Mg Tablet PO QODAY@2200 AMMY Budesonide 0.5 mg 02/15/25 06:00 Budesonide Respules 0.5 Mg/2 Ml Ampul.Neb. INHALATION Q12H.RT AMMY Ferrous Sulfate 325 mg 02/15/25 08:00 02/15/25 09:59 Ferrous Sulfate 325 Mg Tablet PO 325 mg MoWeFr@0800 AMMY Administration Finasteride 5 mg 02/15/25 10:00 02/15/25 09:59 Finasteride 5 Mg Tablet PO 5 mg DAILY AMMY Administration Furosemide 40 mg 02/15/25 14:00 Furosemide 40 Mg/4 Ml Vial IV Q8 [facility] Protocol Gabapentin 100 mg 02/15/25 10:00 02/15/25 09:58 Gabapentin 100 Mg Capsule PO 100 mg DAILY AMMY Administration Glucagon 1 mg 02/15/25 05:16 Glucagon 1 Mg/Ml Syringe IM X1 PRN HYPOGLYCEMIA Protocol Guaifenesin 5 ml 02/15/25 06:01 Guaifenesin Dm 10 Ml Udc PO Q6H PRN PRN COUGH/CONGESTION Hydralazine HCl 100 mg 02/15/25 10:00 02/15/25 09:58 Hydralazine 50 Mg Tablet PO 100 mg BID AMMY Administration Sodium Chloride 250 mls @ 15 mls/hr 02/15/25 05:15 IV .[id number] PRN Saline Flush Sodium Chloride 250 mls @ 15 mls/hr 02/15/25 05:15 IV .[id number] PRN Additional IVPB Infusion Dextrose 250 mls @ 0 mls/hr 02/15/25 05:16 Dextrose 10%-Water IV .Q0M PRN HYPOGLYCEMIA Protocol As Directed Insulin Glargine 14 unit 02/15/25 10:00 02/15/25 10:04 Insulin Glargine-Yfgn 100 Unit/Ml Pen SC 14 unit DAILY AMMY Administration Insulin Human Lispro 6 unit 02/15/25 07:00 02/15/25 12:20 Insulin Lispro 100 Unit/Ml Insuln.Pen SC 6 u TIDAC AMMY Administration Insulin Human Lispro 0 unit 02/15/25 07:00 02/15/25 12:20 Insulin Lispro 100 Unit/Ml Insuln.Pen SC 1 u ACHS AMMY Administration Protocol Ipratropium [place] 1 spray 02/15/25 05:16 Ipratropium [place] 0.06% Nasal [place] NASAL BID PRN PRN allergy symptoms Lactulose 20 gm 02/15/25 05:16 Lactulose 20 Gm/30 Ml Udc PO BID PRN PRN constipation Loratadine 10 mg 02/16/25 10:00 Loratadine 10 Mg Tablet PO Q48@1000 AMMY Magnesium Chloride 128 mg 02/15/25 10:00 02/15/25 09:58 Magnesium Chloride 64 Mg Delay Rel.Tablet PO 128 mg BID AMMY Administration Meclizine HCl 12.5 mg 02/15/25 05:16 Meclizine 12.5 Mg Tablet PO BID PRN PRN VERTIGO Melatonin 3 mg 02/15/25 05:16 Melatonin 3 Mg Tablet PO QHS PRN PRN INSOMNIA Montelukast Sodium 10 mg 02/15/25 22:00 Montelukast 10 Mg Tablet PO QHS AMMY Nitroglycerin 0.4 mg 02/15/25 05:16 Nitroglycerin (Inpatient Use) 0.4 Mg Tab.Subl SL Q5M PRN chest pain Ondansetron HCl 4 mg 02/15/25 05:16 Ondansetron 4 Mg/2 Ml Vial IV Q8H PRN PRN NAUSEA/VOMITING Pantoprazole Sodium 40 mg 02/15/25 10:00 02/15/25 09:58 Pantoprazole Sodium 40 Mg Tablet PO 40 mg DAILY AMMY Administration Potassium Chloride 20 meq 02/15/25 17:00 Potassium Chloride Oral Tablet 10 Meq PO BIDCM AMMY Pramipexole Dihydrochloride 1.5 mg 02/15/25 22:00 Pramipexole Di-Hcl 0.5 Mg Tablet PO QHS AMMY Ranolazine 500 mg 02/15/25 10:00 02/15/25 09:58 Ranolazine 500 Mg Tablet PO 500 mg BID AMMY Administration Sodium Chloride 10 - 40 ml 02/15/25 05:15 02/15/25 09:57 0.9% Saline Lock 10 Ml Syringe IV 10 ml UD PRN Administration SALINE FLUSH Tamsulosin HCl 0.4 mg 02/15/25 10:00 02/15/25 09:59 Tamsulosin Hcl 0.4 Mg Capsule PO 0.4 mg DAILY AMMY Administration 02/16/25 0033 <Electronically signed by Torri Van MD> Cosigner Signature (if applicable): CC: Dr. Riaz Garrison MD~ Signed [facility] Work Phone: 1(585) 798-617805-12-2025 Progress note Author [facility] Note Date/Time February 15, 2025 6:13p m [facility] Medical Records Department [address] [place] [address] Progress Note - Hospitalist 02/15/25 1811 MR#: [id number] Acct: [id number] Name: DESIREE AMES Rep #:[id number] : 1935 89 From: Inocencio Perkins DO PCP: Dr. Riaz Garrison MD Status:ADM IN Location: [place] [address] Hospitalist Note Patient was seen and examined, I talked to his who was in the room at the time of my examination. Patient has been complaining of increased swelling in his legs and shortness of breath, he was admitted early this morning with congestive heart failure. Echocardiogram performed today showed a reduced ejection fraction at 40%-his previous echocardiogram showed a normal EF at 55% in January 2024. I have elected to place the patient on losartan, his iron level is low and I will give him an infusion of Venofer, he is currently taking oral iron. This will need to be increased as an outpatient. I had a brief conversation with neurology via text, they are unsure of what is causing the patient's tremors which he states he intermittently gets, patient will have an MRI of the brain with and without contrast today. 02/15/251812 <Electronically signed by Inocencio Perkins DO> Cosigner Signature (if applicable): CC: ~ Signed [facility] Work Phone: 1(634) 197-207505-12-2025 Radiology Diagnostic study [facility]05-12-2025 History and physical note Author Raymond Keenan [facility] Note Date/Time February 15, 2025 6:05a m [facility] Medical Records Department [address] [place] [address] H&P Exam - Hospitalist 02/15/25 0414 MR#: [id number] Acct: [id number] Name: DESIREE AMES Rep #:[id number] : 1935 89 From: Raymond Smalls DO PCP: Dr. Riaz Garrison MD Status:ADM IN Location: [facility] [id number] HPI - General General Date of Admission: 02/15/25 Date of Service: 02/15/25 Chief Complaint: SOB and LE edema. HPI Narrative DESIREE AMES, is a 89 M with a past medical history of essential hypertension; on hydralazine BID and furosemide BID, hyperlipidemia; on atorvastatin, obesity;with BMI of 32.7 this admission, MARIXA; on BiPAP, diabetes mellitus type 2; of unknown control on insulin glargine 22U sq daily plus insulin aspart 10U TID, diabetic neuropathy; on gabapentin, history of chronic diastolic CHF; with preserved left ventricular ejection fraction, coronary artery disease; status post distal RCA stent (1997) on ranolazine plus as needed SL NTG, chronic atrialfibrillation/flutter; on aspirin, history of AAA; s/p repair (1998), history of tobacco abuse (quit 2007); with subsequent COPD, chronic kidney disease; stage III-IV with baseline serum creatinine of ~2.3 mg/dL with a BUN of ~37 mg/dL, MACHELLE; on ferrous sulfate, history of severe peripheral vascular disease with lower extremity claudication; s/p endarterectomy of Right iliac and Left groin (11/2023), history of vertigo likely due to BPPV, restless leg syndrome; on ropinirole, BPH; on tamsulosin and finasteride, GERD; on pantoprazole, osteoarthritis, spinal stenosis and degenerative disc disease; with chronic low back pain and recent admission here from December 15, 2024 to December 17, 2024 for treatment of AE COPD secondary to acute Influenza A complicated by hypoxia who presents to [facility] ER complaining of shortness of breath andlower extremity edema. Mr. Ames reports his symptoms began approximately 3 weeks prior to admission with a gradual-onset of dyspnea on exertion that progressed to shortness of breath at rest. He also admits to increasing swelling in both lower extremitiesand cough productive of white sputum. He states his symptoms are similar to hisprevious CHF exacerbations. He also admits to worsening neuropathy with patientfeeling like he has shoes on all the time in addition to intermittent jerking and unsteady gait when walking. He was already previously set up to have an outpatient head CT done but he has not had a chance to undergo this testing yet. He denies associated fever, chills, chest pain, nausea, vomiting, diarrhea, constipation, abdominal pain, dysuria, headache or rash. In the ER he was notedto have an elevated NT pro-BNP II of 12,152 pg milliliter present on admission with a CXR suggestive of appearance of some increased perihilar markings with a lower zone predominance and possibly some septal thickening with small pleural effusion suggested on the lateral view which may represent mild pulmonary edema with clinical correlation recommended with cardiac silhouette again mildly largefor technique consistent with AE of chronic diastolic CHF; with preserved LVEF complicated by elevated troponin T of 83 ng/L likely due to Acute Cardiac Strainalong with clinical evidence of Acute Bronchitis with Leukocytosis of 11.2 K present on admission and he was then admitted to the PCU for ongoing care for state that is expected to extend beyond 2 midnights. [facility] Medical History Right carotid bruit Stable angina Kidney disease GERD (gastroesophageal reflux disease) Irregular heart beat Myocardial infarct Complicated urinary tract infection Urinary tract infection Colonic mass Controlled type 2 diabetes mellitus Acute respiratory insufficiency Chronic kidney disease Chronic anemia Bilateral edema of lower extremity Urinary retention Fatigue Pleural effusion (HFpEF) heart failure with preserved ejection fraction Pneumonia Colon polyp Lightheadedness Chronic constipation Anemia Obstructive sleep apnea Coronary artery disease Gastroesophageal reflux disease Allergic rhinitis Hyperlipidemia Urinary retention Wears hearing aid Wears dentures Wears glasses Cancer History of steroid therapy Ambulates with cane Walker as ambulation aid Arthritis Kidney stone Easy bruising Back pain Injury of back History of hiatal hernia Former smoker BiPAP (biphasic positive airway pressure) dependence Asthma Hoarseness Chronic cough Leg cramps History of pain when walking History of stress test History of heart attack History of irregular heartbeat Recurrent urinary tract infection ALMEIDA (dyspnea on exertion) Chest pain Right leg swelling Patellar bursitis of right knee Asthma-COPD overlap syndrome Abdominal aortic aneurysm (AAA) Peripheral vascular disease of extremity with claudication Rectus sheath hematoma Pre-syncope Essential (primary) hypertension Restless legs syndrome Daytime hypersomnia Somatic dysfunction of pelvic region DDD (degenerative disc disease), lumbar Overweight Seasonal allergies Carotid bruit Atherosclerotic heart disease of [place] coronary artery without angina pectoris PVD (peripheral vascular disease) COPD (chronic obstructive pulmonary disease) Home Medications ?Medication ?Instructions ?Recorded ?Last Taken ?Type handicap placcard #1 ea 09/28/19 Unknown Rx coenzyme Q10 100 mg capsule (Co 100 mg PO DAILY supple ment 05/03/20 01/29/25 History Q-10) cholecalciferol (vitamin D3) 100 100 mcg PO DAILY supp lement 11/03/20 01/29/25 History mcg (4,000 unit) tablet spacer #1 ea 01/12/21 Unknown Rx lancets #180 ea 07/18/23 Unknown Rx lactulose 20 gram/30 mL oral 20 g PO BID PRN constipat ion 05/01/24 Unknown History solution montelukast 10 mg tablet 10 mg PO QHS Respiratory #90 tabs 05/04/24 01/28/25 Rx atorvastatin 40 mg tablet 40 mg PO QODAY cholesterol # 45 tabs 05/13/24 01/27/25 Rx tamsulosin 0.4 mg capsule 0.4 mg PO DAILY 06/01/24 History finasteride 5 mg tablet 5 mg PO DAILY 06/28/2401/28 History insulin aspart U-100 100 unit/mL 10 unit (0.1 mL) subc ut TID #15 mL 10/07/24 01/29/25 Rx subcutaneous cartridge (Novolog PenFill U-100 Insulin aspart) handicap placard #1 ea 10/12/24 Unknown Rx budesonide-formoterol HFA 160 2 puff inhalation BID co pd #3 ea 10/16/24 01/28/25 Rx mcg-4.5 mcg/actuation aerosol inhaler (Symbicort) pantoprazole 40 mg tablet,delayed 40 mg PO DAILY reflu x #90 tabs 11/30/24 01/29/25 Rx release apixaban 2.5 mg tablet (Eliquis) 2.5 mg PO BID atrial fibrillation 12/14/24 01/29/25 Rx #180 tabs ipratropium bromide 21 mcg (0.03 2 spray intranasal BI D PRN allergy 12/14/24 Unknown History %) nasal spray symptoms blood sugar diagnostic (OneTouch #180 ea 12/21/24 Unkn own Rx Ultra Test strips) albuterol sulfate 90 mcg/actuation 2 inh inhalation Q4 H PRN shortness 01/04/25 01/28/25 Rx aerosol inhaler (Ventolin HFA) of breath or wheezing # 18 grams nitroglycerin 0.4 mg sublingual 0.4 mg sublingual Q5-1 5M PRN chest 01/13/25 01/29/25 Rx tablet (Nitrostat) pain #25 tabs pen needle, diabetic 31 gauge x #100 ea 01/13/25 Unkno wn Rx 10/10 (Unifine Pentips) hydralazine 100 mg tablet 100 mg PO BID hypertension # 180 01/26/25 01/29/25 Rx tabs ranolazine 500 mg tablet,extended 500 mg PO BID #180 t abs 01/26/25 01/29/25 Rx release,12 hr ropinirole 1 mg tablet 3 mg (3 x 1 mg) PO QHS restl ess 01/26/25 01/28/25 Rx leg #90 tabs gabapentin 100 mg capsule 100 mg PO DAILY 01/29/25 History ipratropium 0.5 mg-albuterol 3 mg 3 ml inhalation TID SOB &/OR 01/29/25 01/28/25 History (2.5 mg base)/3 mL nebulization WHEEZING soln loratadine 10 mg tablet (Allergy 10 mg PO DAILY allerg ies 01/29/25 01/28/25 History Relief (loratadine)) 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 meter,continuous #1 ea 02/01/25 Unknown Rx (FreeStyle [place] 3 [place]) ferrous sulfate 325 mg (65 mg 325 mg PO 3XW low iron 0 02/04/25 Unknown History iron) tablet (FeroSul) 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 sensor (FreeStyle #3 ea 02/10/25 Unknown Rx [place] 3 Plus Sensor device) furosemide 20 mg tablet 40 mg PO BID 02/15/25 Unknow n History insulin glargine 100 unit/mL (3 22 unit subcut DAILY 0 02/15/25 Unknown History mL) subcutaneous pen (Lantus Solostar U-100 Insulin) Allergy/AdvReac Type Severity Reaction Status Date / Time cilostazol (From Pletal) Allergy Unknown Verified 02/04/25 14:00 felodipine Allergy Hives Verified 02/04/25 14:00 levofloxacin Allergy Hives Verified 02/04/25 14:00 Sulfa (Sulfonamide Allergy Unknown Verified 02/04/25 14:00 Antibiotics) isosorbide AdvReac Intermediate low BP Verified 02/04/25 14:00 Family History Father Diabetes Cancer Prostate cancer Mother Dementia Brother Parkinsons Brother Cancer H/O vascular surgery Surgical History History of appendectomy History of surgical procedure H/O vascular surgery History of surgical procedure History of transurethral resection of prostate History of endarterectomy (07/2018) History of left heart catheterization (03/2014) History of coronary artery stent placement (02/17/08) History of vascular surgery (08/2018) History of hernia repair H/O aortic aneurysm repair (11/1998) Social History household members: spouse 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 status: retired current occupation: Responsible [employer] Smoking Status: Former smoker quit date: 08/07/08 pack-years: 2 Tobacco: How many years used: 52 Electronic Cigarette Use: not used how long ago did patient quit smokin years ago alcohol intake: current alcohol intake frequency: holidays/special occasions only details: hx of alcohol abuse substance use type: does not use caffeine: No what type of physical activity do you participate in: other details: Nustep frequency: 5-6 times per week duration: 15-30 minutes/day seatbelt use: always do you feel safe at home: Yes ROS ROS Narrative Review of Systems: Constitutional: Patient denies fever or chills. Eyes: Patient denies changes in vision or discharge from eyes. ENT: Patient denies runny nose, sore throat or ear pain. Resp: Patient admits to dyspnea on exertion that progressed to shortness of breath at rest with cough productive of whitish sputum as per HPI. CV: Patient admits to lower extremity edema but he denies chest pain, palpitations or heart racing. GI: Patient denies abdominal pain, nausea, vomiting, diarrhea or constipation. : Patient denies dysuria or hematuria. MSK: Patient denies arthralgias or myalgias. Skin: Patient denies rash, abscess, wounds or jaundice. Psych: Patient denies symptoms of uncontrolled depression or anxiety. Neuro: Patient admits to worsening neuropathy with intermittent muscle twitchingand unsteady gait when walking but he denies headache or focal neurologic weakness. Allergy: Patient denies lip swelling, tongue swelling or urticaria. Hematology: Patient denies easy bleeding or easy bruisability. Endocrinology: Patient denies polyuria, polydipsia, polyphagia or heat/cold intolerance. 14 point ROS otherwise negative except for positives noted above in HPI. Vital Signs Vital Signs Vital Signs: 02/15/25 02:58 02/15/25 03:05 02/15/25 03:22 Temperature 98.3 F Temperature Source Oral Pulse Rate 81 Respiratory Rate 26 H Respiratory Effort Normal Respiratory Depth Normal Respiratory Pattern Normal Blood Pressure 144/100 H Blood Pressure Mean 114 Pulse Ox 93 95 Oxygen Delivery Method Room Air Room Air Room Air 02/15/25 03:53 Temperature 98.1 F Temperature Source Oral Pulse Rate 81 Respiratory Rate 16 Respiratory Effort Respiratory Depth Respiratory Pattern Blood Pressure 149/91 H Blood Pressure Mean 110 Pulse Ox 94 Oxygen Delivery Method Room Air Weight Weight: 215 lb 2.738 oz Body Mass Index (BMI) 32.7 Physical Exam Const alert, oriented x3, no apparent distress, average body habitus and healthy appearing General Appearance: cooperative HEENT normocephalic, head/scalp atraumatic, hearing grossly normal bilaterally and moist oral mucous membranes Eyes PERRL, EOMs intact bilaterally and conjunctivae normal Neck no lymphadenopathy, supple and no JVD Resp normal respiratory effort, no retractions, no use of accessory muscles and clearto auscultation bilaterally Cardio Cardio Narrative: Patient is in atrial flutter at ~82 bpm with occasional irregularity. GI normal to inspection, nondistended, normoactive bowel sounds, soft to palpation,non-tender and non-distended GI Narrative: Obese. Extremity Extremity Narrative: ~1+ bilateral lower extremity symmetrical pitting edema. Skin Skin Narrative: Patient has evidence of rash, abscess, wounds or jaundice. Neuro oriented x3, CN's II-XII intact bilaterally, moves all extremities and no focal motor deficits Sensorium / Orientation: awake, alert, oriented to person, oriented to place andoriented to time Speech: speech normal Psych affect normal Results Medical Records Data Attestation: I reviewed the patient's medical records Lab / Micro Data Attestation: I reviewed the patient's lab results. 02/15/25 02:42 02/15/25 02:42 Labs: Laboratory Results - last 24 hr 02/15/25 02:42: WBC 11.2 H, RBC 2.89 L, Hgb 9.5 L, Hct 27.7 L, MCV 95.8 H, MCH 32.9 H, MCHC 34.3, RDW Std Deviation 46.5 H, RDW Coeff of Justin 13.9, Plt Count 428, MPV 10.2, Immature Gran % (Auto) 0.800, Neut % (Auto) 83.7 H, Lymph % (Auto) 6.4 L, [place] % (Auto) 8.8, Eos % (Auto) 0.1, Baso % (Auto) 0.2, Absolute Neuts (auto) 9.4 H, Absolute Lymphs (auto) 0.72 L, Nucleated RBC % 0, Sodium 133, Potassium 4.1, Chloride 97 L, Carbon Dioxide 21.0, Anion Gap 15, BUN 48 H, Creatinine 2.12 H, Estim Creat Clear Calc 27.81 L, Est GFR (MDRD) Non-Af 30 L, BUN/Creatinine Ratio 22.7 H, Glucose 190 H, Calcium 9.5, Troponin T High Sens 83 H* D, [place] [id number] H Rhythm Strip Rhythm Strip: Atrial flutter Rate: 82 Ectopy: PVC(s) Imaging Radiology Impression Chest X-Ray 02/15/25 03:25 IMPRESSION: There is again appearance of some increased perihilar markings with a lower zonepredominance and possibly some septal thickening now with some small pleural effusions suggested on the lateral view which may represent mild pulmonary edema, clinically correlate. Cardiac silhouette is again mildly large for technique. Reading Location: [facility] Assessment & Plan Assessment/Plan (1) Diastolic CHF, acute on chronic: (2) Elevated troponin: (3) Atrial fibrillation/flutter: (4) Acute bronchitis: QUALIFIERS: Bronchitis organism: unspecified organism Qualified Code(s): J20.9 - Acute bronchitis, unspecified (5) Leukocytosis: QUALIFIERS: Leukocytosis type: unspecified Qualified Code(s): D72.829 - Elevated white blood cell count, unspecified (6) Neuropathy: (7) Muscle twitching: (8) Unsteady gait when walking: (9) Obesity (BMI 30.0-34.9): (10) MARIXA treated with BiPAP: PLAN: Plan 1. AE of chronic diastolic CHF; with preserved LVEF with an elevated NT pro- BNPII of 12,152 pg milliliter present on admission with a CXR suggestive of pulmonary edema - Admit to PCU. Continue IV furosemide twice daily plus give supplemental KCl and magnesium. Last echocardiogram was in January 2024 so new echocardiogram will be ordered to evaluate LVEF given his worsening symptoms. Serialize troponin. Give acetaminophen as needed for pain or fever. Finally, we will consult [facility] to see this patient on rounds in the a.m. for further recommendations without appreciated advance. 2. Elevated troponin T of 83 ng/L likely due to Acute Cardiac Strain due to #1 in the setting of previously known CAD; status post distal RCA stent (1997) on ranolazine plus as needed SL NTG - Serialize troponin. Continue home medications as previous with BASA and ranolazine. Give SL NTG if angina develops. 3. Acute Bronchitis with Leukocytosis of 11.2 K present on admission and persistent cough productive of thick whitish sputum complicating #1 & #2 - Startoral doxycycline and give Robitussin DM prn. 4. History of diabetic neuropathy with wobbly gait and intermittent random jerking movements in the setting of previously known RLS adding to the medical complexity of #1 - #3 - Check CT scan of the head without contrast. Increase gabapentin to TID. Resume ropinirole as previous. Finally, we will [facility] to see this patient on rounds in the AM for further recommendations with help appreciated in advance. 5. Chronic atrial fibrillation/flutter; on apixaban Rate-controlled at this time. Resume apixaban as previous. 6. Obesity; with BMI of 32.7 this admission plus MARIXA; on BiPAP adding to the burden of disease outlined from #1 - #4 - Weight loss will be recommended. Check TSH. Resume nocturnal BiPAP as before. This complicates his case and mayhamper recovery. 7. Relatively recent admission here from December 15, 2024 to December 17, 2024 for treatment of AE COPD secondary to acute Influenza A complicated by hypoxia - Noted. 8. Essential hypertension; on hydralazine BID and furosemide BID - Maintain current therapy with hydralazine with furosemide switched to IV for #1. Give IVhydralazine as needed for systolic blood pressure greater than 160 mmHg. 9. Hyperlipidemia; on atorvastatin - Resume statin and check Lipid Profile. 10. Diabetes mellitus type 2; of unknown control on insulin glargine 22U sq daily plus insulin aspart 10U TID plus diabetic neuropathy; on gabapentin - ADA diet. Continue insulins at ~60% of home dose to avoid hypoglycemia. FSBS q. AC/HS plus SSI. Check HgbA1c to objectively evaluate quality of diabetic control. 11. History of AAA; s/p repair (1998) - Noted. 12. History of tobacco abuse (quit 2007); with subsequent COPD - Stable with noevidence of acute flare at this time. Continue scheduled and as needed nebulizers/inhalers as before. 13. Chronic kidney disease; stage III-IV with baseline serum creatinine of ~2.3mg/dL with a BUN of ~37 mg/dL - Stable. Check renal indices daily to follow trend for continued stability. 14. MACHELLE; on ferrous sulfate - Stable with a hemoglobin of 9.5 g deciliter and MCV of 95.8 fL present on admission. 15. History of severe peripheral vascular disease with lower extremity claudication; s/p endarterectomy of Right iliac and Left groin (11/2023) - Noted. 16. History of vertigo likely due to BPPV - Give meclizine as needed if symptoms vertigo develop. 17. Restless leg syndrome; on ropinirole - Resume ropinirole as previous. 16. BPH; on tamsulosin and finasteride - Maintain home regimen. 17. GERD; on pantoprazole - Continue PPI. 18. OA, spinal stenosis and degenerative disc disease; with chronic low back pain - Give acetaminophen prn pain or fever as outlined in #1. 19. DVT prophylaxis - Patient already on apixaban for #3 which will be continued. Total time: Approximately (but not less than) 75 minutes. Charges/Coding Visit Charges Inpatient E&M: 02846 Init Hosp L3 02/15/25 0605 <Electronically signed by Raymond Teague DO> Cosigner Signature (if applicable): CC: Dr. Riaz Garrison MD; Dr. Raymond Teague DO~ Signed [facility] Work Phone: [phone]) 124-692605-12-2025 Discharge summary Author Dinesh Comer [facility] Note Date/Time February 15, 2025 4:38a m [facility] Medical Records Department [address] [place] [address] Emergency Department Summary 02/15/25 MR#: [id number] Acct: [id number] Name: DESIREE AMES Rep #:[id number] : 1935 89 From: Dinesh Comer MD PCP: Dr. Riaz Garrison MD Status:ADM IN Location: [place] [address] HPI History of Present Illness Chief Complaint: Shortness of Breath Informant: patient and spouse/S.O. Onset/Context/Timing Onset: Days Context: gradual Timing: Intermittent Quality: Positive for Dyspnea on exertion Current Severity: Mild Maximum Severity: Mild Worsened by: Exertion Relieved by: Rest Associated Symptoms cough and white sputum Chest Pain: Positive for None Narrative Narrative: 89-year-old male extensive past medical history of CHF, diabetes, anemia, COPD, CKD, A-fib on the blood thinner Eliquis. Was hospitalized several weeks ago. Dates he has developed shortness of breath with exertion. No chest pain. Initially was off his Lasix well in the hospital. He is restarted back home 40 twice a day. States he has had increased swelling in his lower extremities. Denies any significant chest pain. No fever. He does have a cough primarily ofwhite sputum. No fever. PE Risk Factors: Negative for Cancer, OCP + Smoking + > 35, Prior DVT or PE, Recent immobilization, Recent surgery or Recent travel Prior similar symptoms: Yes Recent Illness/Hospitalization: Yes PFSH [facility] Medical History Right carotid bruit Stable angina Kidney disease GERD (gastroesophageal reflux disease) Irregular heart beat Myocardial infarct Complicated urinary tract infection Urinary tract infection Colonic mass Controlled type 2 diabetes mellitus Acute respiratory insufficiency Chronic kidney disease Chronic anemia Bilateral edema of lower extremity Urinary retention Fatigue Pleural effusion (HFpEF) heart failure with preserved ejection fraction Pneumonia Colon polyp Lightheadedness Chronic constipation Anemia Obstructive sleep apnea Coronary artery disease Gastroesophageal reflux disease Allergic rhinitis Hyperlipidemia Urinary retention Wears hearing aid Wears dentures Wears glasses Cancer History of steroid therapy Ambulates with cane Walker as ambulation aid Arthritis Kidney stone Easy bruising Back pain Injury of back History of hiatal hernia Former smoker BiPAP (biphasic positive airway pressure) dependence Asthma Hoarseness Chronic cough Leg cramps History of pain when walking History of stress test History of heart attack History of irregular heartbeat Recurrent urinary tract infection ALMEIDA (dyspnea on exertion) Chest pain Right leg swelling Patellar bursitis of right knee Asthma-COPD overlap syndrome Abdominal aortic aneurysm (AAA) Peripheral vascular disease of extremity with claudication Rectus sheath hematoma Pre-syncope Essential (primary) hypertension Restless legs syndrome Daytime hypersomnia Somatic dysfunction of pelvic region DDD (degenerative disc disease), lumbar Overweight Seasonal allergies Carotid bruit Atherosclerotic heart disease of [place] coronary artery without angina pectoris PVD (peripheral vascular disease) COPD (chronic obstructive pulmonary disease) Home Medications ?Medication ?Instructions ?Recorded ?Last Taken ?Type handicap placcard #1 ea 09/28/19 Unknown Rx coenzyme Q10 100 mg capsule (Co 100 mg PO DAILY supple ment 05/03/20 01/29/25 History Q-10) cholecalciferol (vitamin D3) 100 100 mcg PO DAILY supp lement 11/03/20 01/29/25 History mcg (4,000 unit) tablet spacer #1 ea 01/12/21 Unknown Rx lancets #180 ea 07/18/23 Unknown Rx lactulose 20 gram/30 mL oral 20 g PO BID PRN constipat ion 05/01/24 Unknown History solution montelukast 10 mg tablet 10 mg PO QHS Respiratory #90 tabs 05/04/24 01/28/25 Rx atorvastatin 40 mg tablet 40 mg PO QODAY cholesterol # 45 tabs 05/13/24 01/27/25 Rx tamsulosin 0.4 mg capsule 0.4 mg PO DAILY 06/01/24 History finasteride 5 mg tablet 5 mg PO DAILY 06/28/2401/28 History insulin aspart U-100 100 unit/mL 10 unit (0.1 mL) subc ut TID #15 mL 10/07/24 01/29/25 Rx subcutaneous cartridge (Novolog PenFill U-100 Insulin aspart) handicap placard #1 ea 10/12/24 Unknown Rx budesonide-formoterol HFA 160 2 puff inhalation BID co pd #3 ea 10/16/24 01/28/25 Rx mcg-4.5 mcg/actuation aerosol inhaler (Symbicort) pantoprazole 40 mg tablet,delayed 40 mg PO DAILY reflu x #90 tabs 11/30/24 01/29/25 Rx release apixaban 2.5 mg tablet (Eliquis) 2.5 mg PO BID atrial fibrillation 12/14/24 01/29/25 Rx #180 tabs aspirin 81 mg tablet,delayed 81 mg PO DAILY 12/14/24 0 01/28/25 History release (Adult Low Dose Aspirin) ipratropium bromide 21 mcg (0.03 2 spray intranasal BI D PRN allergy 12/14/24 Unknown History %) nasal spray symptoms blood sugar diagnostic (OneTouch #180 ea 12/21/24 Unkn own Rx Ultra Test strips) albuterol sulfate 90 mcg/actuation 2 inh inhalation Q4 H PRN shortness 01/04/25 01/28/25 Rx aerosol inhaler (Ventolin HFA) of breath or wheezing # 18 grams nitroglycerin 0.4 mg sublingual 0.4 mg sublingual Q5-1 5M PRN chest 01/13/25 01/29/25 Rx tablet (Nitrostat) pain #25 tabs pen needle, diabetic 31 gauge x #100 ea 01/13/25 Unkno wn Rx 10/10 (Unifine Pentips) hydralazine 100 mg tablet 100 mg PO BID hypertension # 180 01/26/25 01/29/25 Rx tabs ranolazine 500 mg tablet,extended 500 mg PO BID #180 t abs 01/26/25 01/29/25 Rx release,12 hr ropinirole 1 mg tablet 3 mg (3 x 1 mg) PO QHS restl ess 01/26/25 01/28/25 Rx leg #90 tabs gabapentin 100 mg capsule 100 mg PO DAILY 01/29/25 History ipratropium 0.5 mg-albuterol 3 mg 3 ml inhalation TID SOB &/OR 01/29/25 01/28/25 History (2.5 mg base)/3 mL nebulization WHEEZING soln loratadine 10 mg tablet (Allergy 10 mg PO DAILY allerg ies 01/29/25 01/28/25 History Relief (loratadine)) 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 meter,continuous #1 ea 02/01/25 Unknown Rx (FreeStyle [place] 3 [place]) ferrous sulfate 325 mg (65 mg 325 mg PO 3XW 02/04/25 U nknown History iron) tablet (FeroSul) 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 sensor (FreeStyle #3 ea 02/10/25 Unknown Rx Dwight 3 Plus Sensor device) furosemide 20 mg tablet 40 mg PO BID 02/15/25 Unknow n History insulin glargine 100 unit/mL (3 22 unit subcut DAILY 0 02/15/25 Unknown History mL) subcutaneous pen (Lantus Solostar U-100 Insulin) Allergy/AdvReac Type Severity Reaction Status Date / Time cilostazol (From Pletal) Allergy Unknown Verified 02/04/25 14:00 felodipine Allergy Hives Verified 02/04/25 14:00 levofloxacin Allergy Hives Verified 02/04/25 14:00 Sulfa (Sulfonamide Allergy Unknown Verified 02/04/25 14:00 Antibiotics) isosorbide AdvReac Intermediate low BP Verified 02/04/25 14:00 Family History Father Diabetes Cancer Prostate cancer Mother Dementia Brother Parkinsons Brother Cancer H/O vascular surgery Surgical History History of appendectomy History of surgical procedure H/O vascular surgery History of surgical procedure History of transurethral resection of prostate History of endarterectomy (07/2018) History of left heart catheterization (03/2014) History of coronary artery stent placement (02/17/08) History of vascular surgery (08/2018) History of hernia repair H/O aortic aneurysm repair (11/1998) Social History household members: spouse 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 status: 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 Cough and white sputum. Constitutional Constitutional ED: Denies chills or fever(s) Eyes Eyes: Denies blurry vision ENT ENT ED: Denies ear pain Cardiovascular Cardiovascular: Denies chest pain, orthopnea or paroxysmal nocturnal dyspnea Respiratory/Chest Respiratory/Chest: Reports cough, dyspnea, dyspnea on exertion and sputum; Denies orthopnea or paroxysmal nocturnal dyspnea Gastrointestinal Gastrointestinal: Denies abdominal pain, diarrhea, melena, nausea or vomiting Genitourinary Genitourinary ED: Denies dysuria or hematuria Musculoskeletal Musculoskeletal: Denies arthralgias Integumentary Denies abscess Psychiatric Psychiatric: Denies anxiety Endocrine Endocrinology: Denies cold intolerance Hematologic/Lymphatic Hematologic/Lymphatic: Denies easy bleeding, easy bruising or lymphadenopathy Allergic/Immunologic Allergic/Immunologic ED: Denies mouth swelling, tongue swelling or urticaria EXAM Physical Exam Narrative Exam Narrative: 89-year-old male lying in bed. Vital signs are stable afebrile. Pulse ox in bed 93 to 95%. He is in no distress. is at bedside. H EENT exam pupils round react light. Moist moist membranes. Neck nontender no JVD. No lymphadenopathy. Lungs clear to auscultation bilaterally. Heart atrial flutterrate about 82 no murmur. Chest wall ribs nontender. Abdomen soft nontender. 1+ pitting edema both lower extremities. Consistent with bilateral peripheral edema. Dorsi plantarflexion intact. Normal support analyst strength. Back nontender. Neurologically is awake alert. Answering questions following commands. Const Vital Signs: 02/15/25 02:58 02/15/25 03:05 02/15/25 03:22 Temperature 98.3 F Temperature Source Oral Pulse Rate 81 Respiratory Rate 26 H Respiratory Effort Normal Respiratory Depth Normal Respiratory Pattern Normal Blood Pressure 144/100 H Blood Pressure Mean 114 Pulse Ox 93 95 Oxygen Delivery Method Room Air Room Air Room Air 02/15/25 03:53 02/15/25 04:16 Temperature 98.1 F 98.1 F Temperature Source Oral Pulse Rate 81 90 Respiratory Rate 16 19 H Respiratory Effort Respiratory Depth Respiratory Pattern Blood Pressure 149/91 H 150/101 H Blood Pressure Mean 110 117 Pulse Ox 94 96 Oxygen Delivery Method Room Air Positive well nourished and well developed; Negative for obese, cachectic, contractures or unkempt General Appearance ED: well developed and NAD; Negative for unkempt, cachectic or contractures Nutritional Appearance: Negative for cachectic or obese HEENT Reports moist mucous membranes atraumatic; Negative for trauma or tenderness Eyes PERRL and EOMs intact bilaterally Neck no lymphadenopathy, supple, no meningeal signs and no JVD Resp normal respiratory effort and clear to auscultation bilaterally Cardio no murmurs; Negative for regular rate Cardio Narrative: Atrial flutter rate about 82. GI non-tender, non-distended and no masses Auscultation: normoactive bowel sounds Palpation: soft; Negative for tender, guarding, mass or rebound tenderness present Back/Spine no CVA tenderness and normal to inspection Extremity Negative for normal to inspection Extremity Narrative: Bilateral 1+ pitting edema. Equal symmetrical. Calves nontender. No cords. General Extremety ED: Yes edema; Negative for tenderness General Extremity: edema Neuro oriented x3 and CN's II-XII intact bilaterally Sensorium / Orientation: alert, oriented to person, oriented to place and oriented to time; Negative for orientation impaired, confused, lethargic or stuporous Motor Exam: strength 5/5 throughout Psych mental status grossly normal Appearance: Negative for unkempt Attitude: No agitated Mood & Affect: Negative for depressed, anxious or tearful Skin no wounds and skin turgor normal General Skin Exam: Negative for jaundice Rashes: no rashes MDM MDM MDM Narrative Medical decision making narrative: 89-year-old male exertional dyspnea. Exam has a flutter controlled rate with bilateral peripheral edema. This could be from CHF. Could be from anemia. Could be cardiac. I do not think is pneumonia. I do not think it is COVID. I do not think it is a pulmonary emboli because he is on Eliquis. Patient will undergo cardiac workup including a BNP. Repeat exam at 4:05 AM. No significant change. I went over specific test result the patient and his . They tell me he cannot walk across the room athome without get significantly winded that the sit down. I think his dyspnea issecondary to pulmonary edema, CHF, atrial fibs flutter and worsening anemia. I will speak to the hospitalist about admitting him. The patient will be given 20mg of IV Lasix. History & Record Review Discussion w/independent historian: Patient and Family Additional record(s) reviewed:: Prior inpatient record, Prior outpatient record,Prior ED visit and Prior labs Lab Data Attestation: I reviewed the patient's lab results. Lab results narrative: CBC shows a week 11.2. H&H 9.5 and 27. Platelets 428. Electrolytes shows sodium 133. Gap 15. BUN 48 creatinine 2.1. Glucose 190. Initial troponin 83. BNP 12,152. COVID, flu RSV negative. Labs: Laboratory Results - last 24 hr 02/15/25 02:42 WBC 11.2 H RBC 2.89 L Hgb 9.5 L Hct 27.7 L MCV 95.8 H MCH 32.9 H MCHC 34.3 RDW Std Deviation 46.5 H RDW Coeff of Justin 13.9 Plt Count 428 MPV 10.2 Immature Gran % (Auto) 0.800 Neut % (Auto) 83.7 H Lymph % (Auto) 6.4 L [place] % (Auto) 8.8 Eos % (Auto) 0.1 Baso % (Auto) 0.2 Absolute Neuts (auto) 9.4 H Absolute Lymphs (auto) 0.72 L Nucleated RBC % 0 Sodium 133 Potassium 4.1 Chloride 97 L Carbon Dioxide 21.0 Anion Gap 15 BUN 48 H Creatinine 2.12 H Estim Creat Clear Calc 27.81 L Est GFR (MDRD) Non-Af 30 L BUN/Creatinine Ratio 22.7 H Glucose 190 H Calcium 9.5 Troponin T High Sens 83 H* [place] [address] H Radiography Chest X-Ray - ED: 2 View, Read by ED Physician, Read by Radiologist, Mediastinum, Bony Structures, Chronic Changes, Cardiomegaly, CHF and - (Small pleural effusion.) Diagnostic Testing: Clinical Impression(s) from Imaging Studies Chest X-Ray 02/15/25 03:25 IMPRESSION: There is again appearance of some increased perihilar markings with a lower zonepredominance and possibly some septal thickening now with some small pleural effusions suggested on the lateral view which may represent mild pulmonary edema, clinically correlate. Cardiac silhouette is again mildly large for technique. Reading Location: [facility] Chest x-ray, 2 views, AP and lateral, interpreted by myself and the radiologist. Shows mild cardiomegaly. Pulmonary edema. Small pleural effusion. No pneumonia. Rhythm Strip Rhythm Strip: Atrial flutter Rate: 82 Ectopy: PVC(s) EKG Initial EKG: Attestation: I personally reviewed and interpreted this EKG as follows: Interpretation: No Acute Injury Pattern and Atrial Flutter Comments: Atrial flutter rate of 82. Occasional PVC. No acute sign of MIor ischemia. Discharge Plan Dx/Rx/DC Orders Clinical Impression: Acute dyspnea, Anemia, Chronic anticoagulation, CHF (congestive heart failure),Atrial fibrillation/flutter, Peripheral edema, Chronic kidney disease, History of diabetes mellitus, History of COPD Disposition Disposition: Acute Care Hospital [facility] What to do if you have Problems For any increased pain, shortness of breath, bleeding, nausea or vomiting, chestpain, or any unexpected problems, contact your Primary Care Provider. Call [facility] ([phone]) or report to the closest Emergency Room. Call 911 if necessary. 02/15/25 0438 <Electronically signed by Dinesh Comer MD> Cosigner Signature (if applicable): CC: Dr. Riaz Garrison MD ~ Signed [facility] Work Phone: 1(899) 149-855505-12-2025 Radiology Diagnostic study [facility]05-06-2025 NoteHNO ID: [id number] Author: DARRYL MALLORY, DO Service: ? Author Type: Physician Type: Progress Notes Filed: 03/09/2025 14:43 Note Text: [facility] DEPARTMENT OF VASCULAR SURGERY OUTPATIENT VISIT DATE February 09, 2025 OUTPATIENT VISIT TYPE ESTABLISHED SERVICE DATE: 02/09/2025 SERVICE TIME: 11:50 AM PRIMARY CARE PHYSICIAN: Riaz Garrison MD HISTORY OF PRESENT ILLNESS: Mr. Ames is a 89 year old male who presents today for a vascular surgery follow-up visit for peripheral arterial disease. He has history of femoral endarterectomy with Dr. Zapata in 2023. He does admit to pain when ambulating. 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 Hilliard. Coronary atherosclerosis of unspecified type of vessel, [place] or graft 06/13/2005 Diverticulitis of colon (without mention of hemorrhage)(562.11) 06/12/2005 Former smoker 08/21/2023 Heart attack (HCC) Hypertrophy of prostate without urinary obstruction and other lower urinary tract symptoms (LUTS) 06/12/2005 Memory disturbance 07/24/2010 Mitral valve disorders(424.0) 06/12/2005 Other and unspecified hyperlipidemia 06/13/2005 Other specified disorders of arteries and arterioles 06/12/2005 Peripheral vascular disease, unspecified 06/12/2005 Personal history of colonic polyps 06/13/2005 Tubular adenoma. 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 S/P femoral-popliteal bypass surgery 08/07/2018 Snoring Superficial femoral artery occlusion 08/21/2023 Superficial occlusion of femoral artery Symptom of leg swelling 12/12/2023 Tobacco use disorder 06/12/2005 Type II or unspecified type diabetes mellitus without mention of complication, not stated as uncontrolled 01/24/2011 Unspecified essential hypertension 06/12/2005 Venous insufficiency (chronic) (peripheral) 05/11/2015 PAST SURGICAL HISTORY Procedure Laterality Date APPENDECTOMY DONE W/OTHR MAJOR SURGERY 1998 With inguinal hernia repair [facility] INCL FLUOR GDNCE DX W/CELL WASHG [...] percut, Prox. RCA. TRANSURETHRAL ELEC-SURG PROSTATECTOM 03/07/2022 SOCIAL HISTORY Social History Tobacco Use Smoking status: Former Current packs/day: 0.00 Average packs/day: 0.5 packs/day for 50.0 years (25.0 ttl pk-yrs) Types: Cigarettes, Cigars Start date: 02/04/1958 Quit date: 02/05/2008 Years since quittin.0 Smokeless tobacco: Never Vaping Use Vaping status: Never Used Substance Use Topics Alcohol use: Yes Comment: Rare Drug use: No MEDICATIONS: gabapentin (NEURONTIN) 100 mg capsule Take 1 capsule by mouth once daily. Insulin Aspart (NOVOLOG) 100 unit/mL crtg Inject 10 Units subcutaneously three times a day before meals. insulin glargine-yfgn (SEMGLEE,INSULIN GLARG-YFGN,PEN) 100 unit/mL (3 mL) insulin pen Inject 22 Units subcutaneously daily at bedtime. IPRATROPIUM BROMIDE NASAL Use (more content not included)...[facility]05-06-2025 History of Present illness Narrative* Darryl Mallory, DO - 02/09/2025 11:49 AM EDT Images from the original note were not included. [facility] DEPARTMENT OF VASCULAR SURGERY OUTPATIENT VISIT DATE February 09, 2025 OUTPATIENT VISIT TYPE ESTABLISHED SERVICE DATE: 02/09/2025 SERVICE TIME: 11:50 AM PRIMARY CARE PHYSICIAN: Riaz Garrison MD HISTORY OF PRESENT ILLNESS: Mr. Ames is a 89 year old male who presents today for a vascular surgery follow-up visit for peripheral arterial disease. He has history of femoral endarterectomy with Dr. Zapata in 2023. He does admit to pain when ambulating. 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 Hilliard. Coronary atherosclerosis of unspecified type of vessel, [place] or graft 06/13/2005 Diverticulitis of colon (without mention of hemorrhage)(562.11) 06/12/2005 Former smoker 08/21/2023 Heart attack (HCC) Hypertrophy of prostate without urinary obstruction and other lower urinary tract symptoms (LUTS) 06/12/2005 Memory disturbance 07/24/2010 Mitral valve disorders(424.0) 06/12/2005 Other and unspecified hyperlipidemia 06/13/2005 Other specified disorders of arteries and arterioles 06/12/2005 Peripheral vascular disease, unspecified 06/12/2005 Personal history of colonic polyps 06/13/2005 Tubular adenoma. 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 S/P femoral-popliteal bypass surgery 08/07/2018 Snoring Superficial femoral artery occlusion 08/21/2023 Superficial occlusion of femoral artery Symptom of leg swelling 12/12/2023 Tobacco use disorder 06/12/2005 Type II or unspecified type diabetes mellitus without mention of complication, not stated as uncontrolled 01/24/2011 Unspecified essential hypertension 06/12/2005 Venous insufficiency (chronic) (peripheral) 05/11/2015 PAST SURGICAL HISTORY Procedure Laterality Date APPENDECTOMY DONE W/OTHR MAJOR SURGERY 1998 With inguinal hernia repair [facility] INCL FLUOR GDNCE DX W/CELL WASHG [...] percut, Prox. RCA. TRANSURETHRAL ELEC-SURG PROSTATECTOM 03/07/2022 SOCIAL HISTORY Social History Tobacco Use Smoking status: Former Current packs/day: 0.00 Average packs/day: 0.5 packs/day for 50.0 years (25.0 ttl pk-yrs) Types: Cigarettes, Cigars Start date: 02/04/1958 Quit date: 02/05/2008 Years since quittin.0 Smokeless tobacco: Never Vaping Use Vaping status: Never Used Substance Use Topics Alcohol use: Yes Comment: Rare Drug use: No MEDICATIONS: gabapentin (NEURONTIN) 100 mg capsule Take 1 capsule by mouth once daily. Insulin Aspart (NOVOLOG) 100 unit/mL crtg Inject 10 Units subcutaneously three times a day before meals. insulin glargine-yfgn (SEMGLEE,INSULIN GLARG-YFGN,PEN) 100 unit/mL (3 mL) insulin pen Inject 22 Units subcutaneously daily at bedtime. IPRATROPIUM BROMIDE NASAL Use 2 Sprays in the nose two times a day. 21 mcg lactulose 20 gram/30 mL solution Take 20 g by mouth two times a day as needed (constpation). torsemide (DEMADEX) 20 mg tablet Take 10 mg by mouth two times a day. 1-1.5 tablets ranolazine ER (RANEXA) 500 mg 12 hr tablet Take 1 tablet by mouth every 12 hours. aspirin 81 mg cap Take 1 tablet by mouth once daily. tamsulosin (FLOMAX) 0.4 mg Take 0.4 mg by mouth once daily. finasteride (PROSCAR) 5 mg tablet Take 1 tablet by mouth every afternoon. ELIQUIS 2.5 mg tab(s) Take 1 tablet by mouth every 12 hours. budesonide-formoterol (SYMBICORT) 160-4.5 mcg/actuation inhaler inhale2 puffs BY MOUTH twice a day;administer with spacer, rinse mouth after each use] AMMONIUM LACTATE TOPICAL Apply to affected area as needed. Lotion ipratropium-albuterol (DUONEB) 0.5 mg-3 mg(2.5 mg base)/3 mL nebu 4 TIMES DAILY NEEDED hydrALAZINE (APRESOLINE) 100 mg tablet Take 100 mg by mouth two times a day. Dr. Pierre. rOPINIRole (REQUIP) 0.5 mg tablet Take 1 mg by mouth at bedtime as needed. Dr. Rivero acetaminophen (TYLENOL) 500 mg tablet Take 500 mg by mouth every 6 hours as needed. albuterol HFA (PROVENTIL HFA, VENTOLIN HFA) 90 mcg/actuation inhaler Inhale 2 Puffs as instructed. montelukast (SINGULAIR) 10 mg tablet TAKE 1 TABLET BY MOUTH DAILY AT BEDTIME. FOR NASAL ALLERGIES. pantoprazole DR (PROTONIX) 40 mg tablet TAKE [...] mg cap Take by mouth once daily. atorvastatin (LIPITOR) 40 mg tablet Take 1 tablet by mouth every other day. At bedtime for cholesterol. nitroglycerin sublingual (NITROSTAT) 0.4 mg SL tablet Dissolve 1 tablet under the tongue every 5 minutes as needed for Chest Pain. docusate sodium (COLACE) 100 mg capsule Take 100 mg by mouth once daily as needed for constipation. ketoconazole (NIZORAL) 2 % cream Apply a small amount of cream to the affected area twice a day (Patient not taking: Reported on 12/22/2024) insulin lispro (HUMALOG KWIKPEN INSULIN) 100 unit/mL Inject 10 Units subcutaneously three times a day before meals. (Patient not taking: Reported on 12/22/2024) FEROSUL 325 mg (65 mg iron) tablet Take 1 tablet by mouth every other day. (Patient not taking: Reported on 12/22/2024) senna-docusate (SENNA-S) 8.6-50 mg per tablet Take 1 tablet by mouth two times a day. SEMGLEE,INSULIN GLARG-YFGN,PEN 100 unit/mL (3 mL) insulin pen Inject 22 Units subcutaneously daily at bedtime. (Patient not taking: Reported on 02/09/2025) UNIFINE PENTIPS 31 gauge x 1/4 ndle once daily. (Patient not taking: Reported on 12/22/2024) meclizine (ANTIVERT) 25 mg tab meclizine hydrochloride 25 mg oral tablet (4 sources) Antiemetic Start: 09-13-2023 (Patient not taking: Reported on 11/25/2023) insulin glargine (LANTUS SOLOSTAR U-100 INSULIN) 100 unit/mL (3 mL) Inject 18 Units subcutaneously once daily. (Patient not taking: Reported on 12/22/2024) spironolactone (ALDACTONE) 25 mg tablet Take 25 mg by mouth as needed. (Patient not taking: Reported on 02/27/2024) furosemide (LASIX) 40 mg tablet Take 80 mg by mouth two times a day. ipratropium bromide (ATROVENT) 42 mcg (0.06 %) nasal spray Use 2 Sprays in the nose four times daily. (Patient not taking: Reported on 12/22/2024) triamcinolone acetonide (NASACORT AQ) 55 mcg nasal inhaler Use 2 Sprays in the nose once daily. (Patient not taking: Reported on 02/27/2024) ALLERGIES: ALLERGIES Allergen Reactions Levaquin [Levofloxa* Hives Felodipine Rash Pletal [Cilostazol] Itching Sulfa (Sulfonamide * Itching PHYSICAL EXAM: BP 131/62 (BP Site: Right Arm, BP Position: Sitting, BP Cuff Size: Regular Adult) Pulse 67 [id number]% General: Alert and oriented Integumentary: Normal color, no rash, no lesions. Extremities: Edema trace bilaterally, no ulceration Neurological: Normal cognition and motor skills. Vascular: nonpalpable distal pulses Diagnostic tests reviewed for today's visit: Most recent labs Most recent imaging PVRs Compared to prior study of 06/30/2024, Likely non-compressible artereies, Right TBI was .52; left was .61 on previous exam. RIGHT SIDE Resting right ankle brachial index: 0.83 Partially non-compressible arteries, MARILEE not accurate. Right toe brachial index: 0.48 Non-compressible vessels, results called by PVR tracings. Abnormal toe brachial index at rest is evidence of peripheral artery disease. Right ankle: Moderate disease at rest. LEFT SIDE Resting left ankle brachial index: 0.83 Partially non-compressible arteries, MARILEE not accurate. Left toe brachial index: 0.50 Non-compressible vessels, results called by PVR tracings. Abnormal toe brachial index at rest is evidence of peripheral artery disease. Left ankle: Moderate disease at rest. IMPRESSION: Mr. Ames is a 89 year old male with peripheral arterial disease . PLAN and RECOMMENDATIONS: Overall remains stable Continue current medications- blood pressure and choelsterol control Follow up in 6 months with repeat duplex SIGNATURE: Darryl Mallory DO PATIENT NAME: Desiree Ames DATE: February 09, 2025 TIME: 11:50 AM documented in [facility] encounter[facility] Evaluation note* Diagnosis Onset Date Resolution Status Admit Date Right carotid bruit acute February 042024 1:30pm Atherosclerotic heart diseas e of [place] coronary artery without angina pectoris chronic February 04, 2025 1:30pm Atrial fibrillation with controlled ventricular rate chronic February 04, 2025 1:30pm Essential (primary) hypertension chronic February 04, 2025 1: 30pm HLD (hyperlipidemia) chronic February 04, 2025 1:30pm Abdominal aortic aneurysm (AAA) reso lved February 04, 2025 1:30pm Chronic anticoagulation deleted M ay 2024 1:30pm Acute bronchitis inactive February 4:56am Atrial fibrillation/flutter inactive February 15, 2025 4:56am Chronic systolic (congestive ) heart failure inactive February 15, 2025 4 :56am Diastolic CHF, acute on chronic inac tive February 15, 2025 4:56am Elevated troponin inactive February 4:56am Leukocytosis inactive February 15 4:56am Muscle twitching inactive February 4:56am Neuropathy inactive February 15, 2025 4:56am Obesity (BMI 30.0-34.9) inactive ay 2024 4:56am MARIXA treated with BiPAP inactive Ma y 2024 4:56am Unsteady gait when walking inactive February 15, 2025 4:56am Generalized weakness acute February 19, 2025 7:52pm Acute hyperkalemia resolved February 192024 7:52pm Acute kidney injury resolved February 042024 7:52pm Hypoxia inactive February 19, 2025 7:52pm CHF (congestive heart failure) chron ic March 04, 2025 11:20am Acute cough resolved March 04 11:20am History of COPD inactive March 04, 2025 11:20am History of diabetes mellitus inactiv e March 04, 2025 11:20am Chronic kidney disease deleted Sukhjinder y 2024 11:20am Acute cough resolved March 04 5:31pm Acute kidney injury resolved February 052024 5:31pm 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 resolved March 04, 2025 5:31pm COPD exacerbation resolved February 5:31pm Exertional dyspnea resolved March 042024 5:31pm Hypoxemia resolved March 04, 2025 5:31pm Pneumonia resolved March 04, 2025 5:31pm Anemia inactive March 04, 2025 5:31pm History of COPD inactive March 04, 2025 5:31pm History of diabetes mellitus inactiv e March 04, 2025 5:31pm Peripheral edema inactive February 5:31pm Chronic kidney disease deleted Sukhjinder y 2024 5:31pm DM2 (diabetes mellitus, type 2) acut e March 12, 2025 12:40pm CHF (congestive heart failure) chron ic March 12, 2025 12:40pm Pneumonia resolved March 12, 2025 12:40pm Tremor acute March 15, 2025 12:28pm Atherosclerotic heart diseas e of [place] coronary artery without angina pectoris chronic March 12:47pm Atrial fibrillation with controlled ventricular rate chronic March 19, 2025 12:47pm CHF (congestive heart failure) chron ic March 19, 2025 12:47pm Essential (primary) hypertension chronic March 19, 2025 12:47pm HLD (hyperlipidemia) chronic March 19, 2025 12:47pm Abdominal aortic aneurysm (AAA) reso lved March 19, 2025 12:47pm Asthma-COPD overlap syndrome chronic March 23, 2025 2:08pm Obstructive sleep apnea chronic J une 2024 2:08pm Restless legs syndrome chronic Ju ne 2024 2:08pm Anemia acute April 05 10:40am Tremor acute April 05 10:40am Chronic kidney disease deleted Ju ne 2024 10:40am Lower back pain acute April 8:27am (HFpEF) heart failure with preserved ejection fraction chronic April 27, 2025 8:27am COPD (chronic obstructive pulmonary disease) chronic April 27 8:27am Essential (primary) hypertension chronic April 27, 2025 8:27am Obstructive sleep apnea chronic J gordon 2024 8:27am Peripheral vascular disease of extremity with claudication chronic April 27, 2025 8:27am Restless legs syndrome chronic Ju ly 2024 8:27am Atrial fibrillation deleted April 27, 2025 8:27am Screening for depression noneactive April 27, 2025 8:27am Concern about memory noneactive April 27, 2025 8:27am Thyroid nodule noneactive April 27, 2025 8:27am CKD (chronic kidney disease) stage 3, GFR 30-59 ml/min noneactive April 072024 8:27am Controlled type 2 diabetes mellitus noneactive April 27, 2025 8:27am Recurrent falls noneactive April 8:27am Left wrist pain noneactive April 8:27am Left wrist pain acute April 2:29pm Trigger thumb, left thumb acute May 03, 2025 2:29pm Asthma-COPD overlap syndrome chronic May 19, 2025 1:06pm Obstructive sleep apnea chronic A ugust 2024 1:06pm Restless legs syndrome chronic Au love 2024 1:06pm Atherosclerotic heart diseas e of [place] coronary artery without angina pectoris chronic May 082024 12:48pm Atrial fibrillation with controlled ventricular rate chronic 2024 12:48pm CHF (congestive heart failure) chron ic May 31, 2025 12:48pm Essential (primary) hypertension chronic May 31 12:48pm HLD (hyperlipidemia) chronic 2024 12:48pm Abdominal aortic aneurysm (AAA) reso lved May 31, 2025 12:48pm [facility] Work Phone: 1(565) 363-634104-28-2025 Evaluation note* Diagnosis Onset Date Resolution Status Admit Date Restless legs syndrome chronic Ap ril 2024 10:45am Atypical chest pain noneactive February 01, 2025 10:45am Controlled type 2 diabetes mellitus noneactive February 01, 2025 10:45am Recurrent falls noneactive January 10:45am Iron deficiency noneactive January 10:45am Right carotid bruit acute February 042024 1:30pm Atherosclerotic heart diseas e of [place] coronary artery without angina pectoris chronic February 04, 2025 1:30pm Atrial fibrillation with controlled ventricular rate chronic February 04, 2025 1:30pm Essential (primary) hypertension chronic February 04, 2025 1: 30pm HLD (hyperlipidemia) chronic February 04, 2025 1:30pm Abdominal aortic aneurysm (AAA) reso lved February 04, 2025 1:30pm Chronic anticoagulation deleted M ay 2024 1:30pm Acute bronchitis inactive February 4:56am Atrial fibrillation/flutter inactive February 15, 2025 4:56am Chronic systolic (congestive ) heart failure inactive February 15, 2025 4 :56am Diastolic CHF, acute on chronic inac tive February 15, 2025 4:56am Elevated troponin inactive February 4:56am Leukocytosis inactive February 15 4:56am Muscle twitching inactive February 4:56am Neuropathy inactive February 15, 2025 4:56am Obesity (BMI 30.0-34.9) inactive Zak motta 2024 4:56am MARIXA treated with BiPAP inactive Sukhjinder rader 2024 4:56am Unsteady gait when walking inactive February 15, 2025 4:56am Generalized weakness acute February 19, 2025 7:52pm Acute hyperkalemia resolved February 192024 7:52pm Acute kidney injury resolved February 042024 7:52pm Hypoxia inactive February 19, 2025 7:52pm Acute cough resolved March 04 11:20am History of COPD inactive March 04, 2025 11:20am History of diabetes mellitus inactiv e March 04, 2025 11:20am CHF (congestive heart failure) delet ed March 04, 2025 11:20am Chronic kidney disease deleted Sukhjinder rader 2024 11:20am Acute cough resolved March 04 5:31pm Acute kidney injury resolved February 052024 5:31pm 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 resolved March 04, 2025 5:31pm COPD exacerbation resolved February 5:31pm Exertional dyspnea resolved March 042024 5:31pm Hypoxemia resolved March 04, 2025 5:31pm Pneumonia resolved March 04, 2025 5:31pm Anemia inactive March 04, 2025 5:31pm History of COPD inactive March 04, 2025 5:31pm History of diabetes mellitus inactiv e March 04, 2025 5:31pm Peripheral edema inactive February 5:31pm Chronic kidney disease deleted Sukhjinder rader 2024 5:31pm DM2 (diabetes mellitus, type 2) acut e March 12, 2025 12:40pm Pneumonia resolved March 12, 2025 12:40pm CHF (congestive heart failure) delet ed March 12, 2025 12:40pm Tremor acute March 15, 2025 12:28pm Atherosclerotic heart diseas e of [place] coronary artery without angina pectoris chronic March 12:47pm Atrial fibrillation with controlled ventricular rate chronic March 19, 2025 12:47pm Essential (primary) hypertension chronic March 19, 2025 12:47pm HLD (hyperlipidemia) chronic March 19, 2025 12:47pm Abdominal aortic aneurysm (AAA) reso lved March 19, 2025 12:47pm CHF (congestive heart failure) delet ed March 19, 2025 12:47pm Asthma-COPD overlap syndrome chronic March 23, 2025 2:08pm Obstructive sleep apnea chronic J une 2024 2:08pm Restless legs syndrome chronic Ju ne 2024 2:08pm Anemia acute April 05 10:40am Tremor acute April 05 10:40am Chronic kidney disease deleted Ju ne 2024 10:40am Lower back pain acute April 8:27am (HFpEF) heart failure with preserved ejection fraction chronic April 27, 2025 8:27am COPD (chronic obstructive pulmonary disease) chronic April 27 8:27am Essential (primary) hypertension chronic April 27, 2025 8:27am Obstructive sleep apnea chronic J gordon 2024 8:27am Peripheral vascular disease of extremity with claudication chronic April 27, 2025 8:27am Restless legs syndrome chronic Ju ly 2024 8:27am Atrial fibrillation deleted April 27, 2025 8:27am Screening for depression noneactive April 27, 2025 8:27am Concern about memory noneactive April 27, 2025 8:27am Thyroid nodule noneactive April 27, 2025 8:27am CKD (chronic kidney disease) stage 3, GFR 30-59 ml/min noneactive April 072024 8:27am Controlled type 2 diabetes mellitus noneactive April 27, 2025 8:27am Recurrent falls noneactive April 8:27am Left wrist pain noneactive April 8:27am Left wrist pain acute April 2:29pm Trigger thumb, left thumb acute May 03, 2025 2:29pm Asthma-COPD overlap syndrome chronic May 19, 2025 1:06pm Obstructive sleep apnea chronic A ugust 2024 1:06pm Restless legs syndrome chronic Au love 2024 1:06pm [facility] [employer] Work Phone: 1(743) 271-248704-28-2025 Evaluation note* Diagnosis Onset Date Resolution Status Admit Date Restless legs syndrome chronic Ap ril 2024 10:45am Atypical chest pain noneactive February 01, 2025 10:45am Controlled type 2 diabetes mellitus noneactive February 01, 2025 10:45am Recurrent falls noneactive January 10:45am Iron deficiency noneactive January 10:45am Right carotid bruit acute February 042024 1:30pm Atherosclerotic heart diseas e of [place] coronary artery without angina pectoris chronic February 04, 2025 1:30pm Atrial fibrillation with controlled ventricular rate chronic February 04, 2025 1:30pm Essential (primary) hypertension chronic February 04, 2025 1: 30pm HLD (hyperlipidemia) chronic February 04, 2025 1:30pm Abdominal aortic aneurysm (AAA) reso lved February 04, 2025 1:30pm Chronic anticoagulation deleted [facility] 2024 1:30pm Acute bronchitis inactive February 4:56am Atrial fibrillation/flutter inactive February 15, 2025 4:56am Chronic systolic (congestive ) heart failure inactive February 15, 2025 4 :56am Diastolic CHF, acute on chronic inac tive February 15, 2025 4:56am Elevated troponin inactive February 4:56am Leukocytosis inactive February 15 4:56am Muscle twitching inactive February 4:56am Neuropathy inactive February 15, 2025 4:56am Obesity (BMI 30.0-34.9) inactive [facility] 2024 4:56am MARIXA treated with BiPAP inactive Tn y 2024 4:56am Unsteady gait when walking inactive February 15, 2025 4:56am Generalized weakness acute February 19, 2025 7:52pm Acute hyperkalemia resolved February 192024 7:52pm Acute kidney injury resolved February 042024 7:52pm Hypoxia inactive February 19, 2025 7:52pm CHF (congestive heart failure) chron ic March 04, 2025 11:20am Acute cough resolved March 04 11:20am History of COPD inactive March 04, 2025 11:20am History of diabetes mellitus inactiv e March 04, 2025 11:20am Chronic kidney disease deleted Ma y 2024 11:20am Acute cough resolved March 04 5:31pm Acute kidney injury resolved February 052024 5:31pm 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 resolved March 04, 2025 5:31pm COPD exacerbation resolved February 5:31pm Exertional dyspnea resolved March 042024 5:31pm Hypoxemia resolved March 04, 2025 5:31pm Pneumonia resolved March 04, 2025 5:31pm Anemia inactive March 04, 2025 5:31pm History of COPD inactive March 04, 2025 5:31pm History of diabetes mellitus inactiv e March 04, 2025 5:31pm Peripheral edema inactive February 5:31pm Chronic kidney disease deleted Ma y 2024 5:31pm DM2 (diabetes mellitus, type 2) acut e March 12, 2025 12:40pm CHF (congestive heart failure) chron ic March 12, 2025 12:40pm Pneumonia resolved March 12, 2025 12:40pm Tremor acute March 15, 2025 12:28pm Atherosclerotic heart diseas e of [place] coronary artery without angina pectoris chronic March 12:47pm Atrial fibrillation with controlled ventricular rate chronic March 19, 2025 12:47pm CHF (congestive heart failure) chron ic March 19, 2025 12:47pm Essential (primary) hypertension chronic March 19, 2025 12:47pm HLD (hyperlipidemia) chronic March 19, 2025 12:47pm Abdominal aortic aneurysm (AAA) reso lved March 19, 2025 12:47pm Asthma-COPD overlap syndrome chronic March 23, 2025 2:08pm Obstructive sleep apnea chronic J [facility] 2024 2:08pm Restless legs syndrome chronic [facility] 2024 2:08pm Anemia acute April 05 10:40am Tremor acute April 05 10:40am Chronic kidney disease deleted [facility] 2024 10:40am Lower back pain acute April 8:27am (HFpEF) heart failure with preserved ejection fraction chronic April 27, 2025 8:27am COPD (chronic obstructive pulmonary disease) chronic April 27 8:27am Essential (primary) hypertension chronic April 27, 2025 8:27am Obstructive sleep apnea chronic J gordon 2024 8:27am Peripheral vascular disease of extremity with claudication chronic April 27, 2025 8:27am Restless legs syndrome chronic Ju ly 2024 8:27am Atrial fibrillation deleted April 27, 2025 8:27am Screening for depression noneactive April 27, 2025 8:27am Concern about memory noneactive April 27, 2025 8:27am Thyroid nodule noneactive April 27, 2025 8:27am CKD (chronic kidney disease) stage 3, GFR 30-59 ml/min noneactive April 072024 8:27am Controlled type 2 diabetes mellitus noneactive April 27, 2025 8:27am Recurrent falls noneactive April 8:27am Left wrist pain noneactive April 8:27am Left wrist pain acute April 2:29pm Trigger thumb, left thumb acute May 03, 2025 2:29pm Asthma-COPD overlap syndrome chronic May 19, 2025 1:06pm Obstructive sleep apnea chronic A ugust 2024 1:06pm Restless legs syndrome chronic Au olve 2024 1:06pm Atherosclerotic heart diseas e of [place] coronary artery without angina pectoris chronic May 082024 12:48pm Atrial fibrillation with controlled ventricular rate chronic 2024 12:48pm CHF (congestive heart failure) chron ic May 31, 2025 12:48pm Essential (primary) hypertension chronic May 31 12:48pm HLD (hyperlipidemia) chronic 2024 12:48pm Abdominal aortic aneurysm (AAA) reso lved May 31, 2025 12:48pm [facility] Work Phone: 1(363) 269-614104-25-2025 Radiology Diagnostic study [facility]03-18-2025 NoteHNO ID: [id number] Author: VIPUL RICHARD, ? Service: ? Author Type: Physician Type: Progress Notes Filed: 12/22/2024 14:20 Note Text: Last saw pcp: not in chart Subjective: Patient presents to clinic c/o painful toenails. They state that the nails are especially painful with shoe gear and pressure. Patient admits to being diabetic. No other pedal complaints at this time. Patient states no change in medications or medical history since last visit. Objective: Patient presents to clinic ambulating in [facility] Vasc: DP and PT pulses are nonpalpable bilateral. CFT is less than 5 seconds bilateral. Skin temperature is warm to cool proximal to distal bilateral. There is mild edema or varicosities noted. Neuro: Protective sensation is decreased to the foot and toes when tested with the 5.07 SWM bilateral. Vibratory sensation is absent at the hallux IPJ bilateral. The hallux is downgoing bilateral. Derm: Nails 1-5 b/l are painful, discolored-yellow, thick, crumbly, dystrophic and with subungal debris. Skin is dry and scaly and hair growth is absent bilateral. There [...] polyneuropathy associated with type 2 diabetes mellitus (FORMERLY [facility]) (I73.9) PAD (peripheral artery disease) ([facility]ERLY [facility]) (L85.3) Xerosis cutis Plan: Patient was seen and evaluated. Nails 1-5 bilateral were debrided in length and thickness. Small bleed to left 3rd and 4th toe. Band aide applied. Discussed dryness in b/l feet. Recommend the use of lotion to feet daily. Patient was instructed on the continued importance of diabetic foot care along with proper diet and keeping their blood sugar under control to prevent complications. I stressed the importance of avoiding barefoot walking, wearing good shoes and inspection of feet. I discussed how this patient suffers from neuropathy and that it is important that she monitor for any open wounds. If she develops any issues, she is to contact our office immediately and we will have them seen. Patient is to RTC in 3-4 months. Vipul Richard [facility]03-18-2025 History of Present illness Narrative* Vipul Richard - 12/22/2024 2:07 PM EDT Last saw pcp: not in chart Subjective: Patient presents to clinic c/o painful toenails. They state that the nails are especially painful with shoe gear and pressure. Patient admits to being diabetic. No other pedal complaints at this time. Patient states no change in medications or medical history since last visit. Objective: Patient presents to clinic ambulating in [facility] Vasc: DP and PT pulses are nonpalpable bilateral. CFT is less than 5 seconds bilateral. Skin temperature is warm to cool proximal to distal bilateral. There is mild edema or varicosities noted. Neuro: Protective sensation is decreased to the foot and toes when tested with the 5.07 SWM bilateral. Vibratory sensation is absent at the hallux IPJ bilateral. The hallux is downgoing bilateral. Derm: Nails 1-5 b/l are painful, discolored-yellow, thick, crumbly, dystrophic and with subungal debris. Skin is dry and scaly and hair growth is absent bilateral. There [...] polyneuropathy associated with type 2 diabetes mellitus ([facility]LY [facility]) (I73.9) PAD (peripheral artery disease) ([facility]LY [facility]) (L85.3) Xerosis cutis Plan: Patient was seen and evaluated. Nails 1-5 bilateral were debrided in length and thickness. Small bleed to left 3rd and 4th toe. Band aide applied. Discussed dryness in b/l feet. Recommend the use of lotion to feet daily. Patient was instructed on the continued importance of diabetic foot care along with proper diet andkeeping their blood sugar under control to prevent complications. I stressed the importance of avoiding barefoot walking, wearing good shoes and inspection of feet. I discussed how this patient suffers from neuropathy and that it is important that she monitor for any open wounds. If she develops any issues, she is to contact our office immediately and we will have them seen. Patient is to RTC in 3-4 months. Vipul Richard DPM * Lashanda Murillo, COLLEEN - 12/22/2024 1:40 PM EDT Patient presents with: Left Foot - Established Patient, Follow Up, Diabetic Foot Care Right Foot - Established Patient, Follow Up, Diabetic Foot Care Patient presents for follow up diabetic foot/nail care. LYNDSEY 10/16/24 documented [facility] encounter[facility] Instructions* Patient Instructions* Vipul Richard - 12/22/2024 2:07 PM EDT Diabetes Foot Care Instructions When [...] it. Apply a bandage and wear a differentpair of shoes. Take Care of Your Toenails Cut toenails after bathing, when they are soft. Cut toenails straight across and smooth with a nail file. Avoid cutting into the corners of toes. Do not cut cuticles. If you have neuropathy (or decreased sensation in your feet) a instructor dramatic arts should always cut your toenails. Be Careful [...] make sure there are no foreign objects orrough areas. Avoid tight socks. Wear natural-fiber socks [...] Go to your health care provider or instructor dramatic arts to treat these conditions. documented in this encounterUniversity [facility]03-18-[facility]25 NoteHNO ID: [id number] Author: LASHANDA MURILLO, RN Service: ? Author Type: Registered Nurse Type: Progress Notes Filed: 12/22/2024 14:20 Note Text: Patient presents with: Left Foot - Established Patient, Follow Up, Diabetic Foot Care Right Foot - Established Patient, Follow Up, Diabetic Foot Care Patient presents for follow up diabetic foot/nail care. L[facility]NDSEY 10/16/24[facility]03-13-2025 [facility] 12-14-2024 Radiology Diagnostic study [facility]02-24-2025 Evaluation note* Diagnosis Onset Date Resolution Status Admit Date Atherosclerotic heart diseas e of [place] coronary artery without angina pectoris chronic November 30, 2024 2:39pm Atrial fibrillation with controlled ventricular rate chronic Febr 2024 2:39pm Essential (primary) hypertension chronic November 30, 025 2:39pm HLD (hyperlipidemia) chronic 2024 2:39pm Abdominal aortic aneurysm (AAA) resolved November 30, 2 025 2:39pm Asthma-COPD overlap syndrome inactiv e December 14, 2024 11:48am (HFpEF) heart failure with preserved ejection fraction chronic Rene h 2024 8:22am Acute hypoxic respiratory failure noneactive December 28, 2024 8:22am Influenza A noneactive December 28, 025 8:22am CKD (chronic kidney disease) stage 3, GFR 30-59 ml/min noneactive December 28, 2024 8:22am Acute exacerbation of COPD with asthma noneactive December 28, 2024 8:22am Controlled type 2 diabetes mellitus noneactive December 28, 2024 8:22am Abrasion of head noneactive December 282024 8:22am Hospital discharge follow-up noneact mo December 28, 2024 8:22am Fall noneactive December 28 8:22am COPD (chronic obstructive pulmonary disease) chronic January 01, 2 025 12:38pm Obstructive sleep apnea chronic M arch 2024 12:38pm Restless legs syndrome chronic Ma rch 2024 12:38pm Episode of shaking noneactive January 06, 2025 2:47pm Restless legs syndrome chronic Ap ril 2024 10:45am Atypical chest pain noneactive February 01, 2025 10:45am Controlled type 2 diabetes mellitus noneactive February 01, 2025 10:45am Recurrent falls noneactive January 10:45am Iron deficiency noneactive January 10:45am Chronic anticoagulation acute M ay 2024 1:30pm Right carotid bruit acute February 042024 1:30pm Atherosclerotic heart diseas e of [place] coronary artery without angina pectoris chronic February 04, 2025 1:30pm Atrial fibrillation with controlled ventricular rate chronic February 04, 2025 1:30pm Essential (primary) hypertension chronic February 04, 2025 1: 30pm HLD (hyperlipidemia) chronic February 04, 2025 1:30pm Abdominal aortic aneurysm (AAA) resolved February 04, 2025 1: 30pm [facility] Work Phone: 1(411) 308-560002-24-2025 Evaluation note* Diagnosis Onset Date Resolution Status Admit Date Atherosclerotic heart diseas e of [place] coronary artery without angina pectoris chronic November 30, 2024 2:39pm Atrial fibrillation with controlled ventricular rate chronic Febr 2024 2:39pm Essential (primary) hypertension chronic November 30, 2 025 2:39pm HLD (hyperlipidemia) chronic Febr 2024 2:39pm Abdominal aortic aneurysm (AAA) resolved November 30, 2 025 2:39pm Asthma-COPD overlap syndrome inactiv e December 14, 2024 11:48am (HFpEF) heart failure with preserved ejection fraction chronic 2024 8:22am Acute hypoxic respiratory failure noneactive December 28, 2024 8:22am Influenza A noneactive December 28, 2 025 8:22am CKD (chronic kidney disease) stage 3, GFR 30-59 ml/min noneactive December 28, 2024 8:22am Acute exacerbation of COPD with asthma noneactive December 28, 2024 8:22am Controlled type 2 diabetes mellitus noneactive December 28, 2024 8:22am Abrasion of head noneactive December 282024 8:22am Hospital discharge follow-up noneact mo December 28, 2024 8:22am Fall noneactive December 28 8:22am COPD (chronic obstructive pulmonary disease) chronic January 01, 025 12:38pm Obstructive sleep apnea chronic arch 2024 12:38pm Restless legs syndrome chronic Ma rc 2024 12:38pm Episode of shaking noneactive January 06, 2025 2:47pm Restless legs syndrome chronic Ap ril 2024 10:45am Atypical chest pain noneactive February 01, 2025 10:45am Controlled type 2 diabetes mellitus noneactive February 01, 2025 10:45am Recurrent falls noneactive January 10:45am Iron deficiency noneactive January 10:45am Chronic anticoagulation acute [facility] 2024 1:30pm Right carotid bruit acute February 042024 1:30pm Atherosclerotic heart diseas e of [place] coronary artery without angina pectoris chronic February 04, 2025 1:30pm Atrial fibrillation with controlled ventricular rate chronic February 04, 2025 1:30pm Essential (primary) hypertension chronic February 04, 2025 1: 30pm HLD (hyperlipidemia) chronic February 04, 2025 1:30pm Abdominal aortic aneurysm (AAA) resolved February 04, 2025 1: 30pm Atrial fibrillation/flutter acute February 15, 2025 4:56am Elevated troponin acute February 4:56am Obesity (BMI 30.0-34.9) acute [facility] 2024 4:56am MARIXA treated with BiPAP acute Ma y 2024 4:56am Diastolic CHF, acute on chronic chronic February 15, 2025 4 :56am [facility] Work Phone: 1(205) 553-380202-24-2025 Evaluation note* Diagnosis Onset Date Resolution Status Admit Date Atherosclerotic heart diseas e of [place] coronary artery without angina pectoris chronic November 30, 2024 2:39pm Atrial fibrillation with controlled ventricular rate chronic Febr uary 2024 2:39pm Essential (primary) hypertension chronic November 30, 025 2:39pm HLD (hyperlipidemia) chronic Febr uary 2024 2:39pm Abdominal aortic aneurysm (AAA) resolved November 30 025 2:39pm Asthma-COPD overlap syndrome inactiv e December 14, 2024 11:48am (HFpEF) heart failure with preserved ejection fraction chronic Rene h 2024 8:22am Acute hypoxic respiratory failure noneactive December 28, 2024 8:22am Influenza A noneactive December 28, 8:22am CKD (chronic kidney disease) stage 3, GFR 30-59 ml/min noneactive December 28, 2024 8:22am Acute exacerbation of COPD with asthma noneactive December 28, 2024 8:22am Controlled type 2 diabetes mellitus noneactive December 28, 2024 8:22am Abrasion of head noneactive December 282024 8:22am Hospital discharge follow-up noneact mo December 28, 2024 8:22am Fall noneactive December 28 8:22am COPD (chronic obstructive pulmonary disease) chronic January 01 025 12:38pm Obstructive sleep apnea chronic M arch 2024 12:38pm Restless legs syndrome chronic Ma rch 2024 12:38pm Episode of shaking noneactive January 06, 2025 2:47pm Restless legs syndrome chronic Ap ril 2024 10:45am Atypical chest pain noneactive February 01, 2025 10:45am Controlled type 2 diabetes mellitus noneactive February 01, 2025 10:45am Recurrent falls noneactive January 10:45am Iron deficiency noneactive January 10:45am Chronic anticoagulation acute M ay 2024 1:30pm Right carotid bruit acute February 042024 1:30pm Atherosclerotic heart diseas e of [place] coronary artery without angina pectoris chronic February 04, 2025 1:30pm Atrial fibrillation with controlled ventricular rate chronic February 04, 2025 1:30pm Essential (primary) hypertension chronic February 04, 2025 1: 30pm HLD (hyperlipidemia) chronic February 04, 2025 1:30pm Abdominal aortic aneurysm (AAA) resolved February 04, 2025 1: 30pm Acute bronchitis acute February 4:56am Atrial fibrillation/flutter acute February 15, 2025 4:56am Elevated troponin acute February 4:56am Leukocytosis acute February 15 4:56am Muscle twitching acute February 4:56am Neuropathy acute February 15, 2025 4:56am Obesity (BMI 30.0-34.9) acute M ay 2024 4:56am MARIXA treated with BiPAP acute Ma y 2024 4:56am Unsteady gait when walking acute February 15, 2025 4:56am Chronic systolic (congestive ) heart failure chronic February 15, 2025 4 :56am Diastolic CHF, acute on chronic chronic February 15, 2025 4 :56am [facility] Work Phone: 1(983) 435-369802-24-2025 Evaluation note* Diagnosis Onset Date Resolution Status Admit Date Atherosclerotic heart diseas e of [place] coronary artery without angina pectoris chronic November 30, 2024 2:39pm Atrial fibrillation with controlled ventricular rate chronic 2024 2:39pm Essential (primary) hypertension chronic November 30, 2 025 2:39pm HLD (hyperlipidemia) chronic 2024 2:39pm Abdominal aortic aneurysm (AAA) resolved November 30, 2 025 2:39pm Asthma-COPD overlap syndrome inactiv e December 14, 2024 11:48am (HFpEF) heart failure with preserved ejection fraction chronic Rene 2024 8:22am Acute hypoxic respiratory failure noneactive December 28, 2024 8:22am Influenza A noneactive December 28, 025 8:22am CKD (chronic kidney disease) stage 3, GFR 30-59 ml/min noneactive December 28, 2024 8:22am Acute exacerbation of COPD with asthma noneactive December 28, 2024 8:22am Controlled type 2 diabetes mellitus noneactive December 28, 2024 8:22am Abrasion of head noneactive December 282024 8:22am Hospital discharge follow-up noneact mo December 28, 2024 8:22am Fall noneactive December 28 8:22am COPD (chronic obstructive pulmonary disease) chronic January 01, 2 025 12:38pm Obstructive sleep apnea chronic M arch 2024 12:38pm Restless legs syndrome chronic [facility] 2024 12:38pm Episode of shaking noneactive January 06, 2025 2:47pm Restless legs syndrome chronic Ap ril 2024 10:45am Atypical chest pain noneactive February 01, 2025 10:45am Controlled type 2 diabetes mellitus noneactive February 01, 2025 10:45am Recurrent falls noneactive January 10:45am Iron deficiency noneactive January 10:45am Chronic anticoagulation acute M 2024 1:30pm Right carotid bruit acute February 042024 1:30pm Atherosclerotic heart diseas e of [place] coronary artery without angina pectoris chronic February 04, 2025 1:30pm Atrial fibrillation with controlled ventricular rate chronic February 04, 2025 1:30pm Essential (primary) hypertension chronic February 04, 2025 1: 30pm HLD (hyperlipidemia) chronic February 04, 2025 1:30pm Abdominal aortic aneurysm (AAA) resolved February 04, 2025 1: 30pm Acute bronchitis acute February 4:56am Atrial fibrillation/flutter acute February 15, 2025 4:56am Elevated troponin acute February 4:56am Leukocytosis acute February 15 4:56am Muscle twitching acute February 4:56am Neuropathy acute February 15, 2025 4:56am Obesity (BMI 30.0-34.9) acute ay 2024 4:56am MARIXA treated with BiPAP acute Ma y 2024 4:56am Unsteady gait when walking acute February 15, 2025 4:56am Chronic systolic (congestive ) heart failure chronic February 15, 2025 4 :56am Diastolic CHF, acute on chronic chronic February 15, 2025 4 :56am Acute hyperkalemia acute February 192024 7:52pm Acute kidney injury acute February 042024 7:52pm Generalized weakness acute February 19, 2025 7:52pm [facility] Work Phone: 1(206) 115-560702-24-2025 Evaluation note* Diagnosis Onset Date Resolution Status Admit Date Atherosclerotic heart diseas e of [place] coronary artery without angina pectoris chronic November 30, 2024 2:39pm Atrial fibrillation with controlled ventricular rate chronic 2024 2:39pm Essential (primary) hypertension chronic November 30, 2 025 2:39pm HLD (hyperlipidemia) chronic Febr uary 2024 2:39pm Abdominal aortic aneurysm (AAA) resolved November 30 025 2:39pm Asthma-COPD overlap syndrome inactiv e December 14, 2024 11:48am (HFpEF) heart failure with preserved ejection fraction chronic Rene h 2024 8:22am Acute hypoxic respiratory failure noneactive December 28, 2024 8:22am Influenza A noneactive December 28, 025 8:22am CKD (chronic kidney disease) stage 3, GFR 30-59 ml/min noneactive December 28, 2024 8:22am Acute exacerbation of COPD with asthma noneactive December 28, 2024 8:22am Controlled type 2 diabetes mellitus noneactive December 28, 2024 8:22am Abrasion of head noneactive December 282024 8:22am Hospital discharge follow-up noneact mo December 28, 2024 8:22am Fall noneactive December 28 8:22am COPD (chronic obstructive pulmonary disease) chronic January 01 025 12:38pm Obstructive sleep apnea chronic M arch 2024 12:38pm Restless legs syndrome chronic Ma rch 2024 12:38pm Episode of shaking noneactive January 06, 2025 2:47pm Restless legs syndrome chronic Ap ril 2024 10:45am Atypical chest pain noneactive February 01, 2025 10:45am Controlled type 2 diabetes mellitus noneactive February 01, 2025 10:45am Recurrent falls noneactive January 10:45am Iron deficiency noneactive January 10:45am Chronic anticoagulation acute M ay 2024 1:30pm Right carotid bruit acute February 042024 1:30pm Atherosclerotic heart diseas e of [place] coronary artery without angina pectoris chronic February 04, 2025 1:30pm Atrial fibrillation with controlled ventricular rate chronic February 04, 2025 1:30pm Essential (primary) hypertension chronic February 04, 2025 1: 30pm HLD (hyperlipidemia) chronic February 04, 2025 1:30pm Abdominal aortic aneurysm (AAA) resolved February 04, 2025 1: 30pm Acute bronchitis acute February 4:56am Atrial fibrillation/flutter acute February 15, 2025 4:56am Elevated troponin acute February 4:56am Leukocytosis acute February 15 4:56am Muscle twitching acute February 4:56am Neuropathy acute February 15, 2025 4:56am Obesity (BMI 30.0-34.9) acute M ay 2024 4:56am MARIXA treated with BiPAP acute Ma y 2024 4:56am Unsteady gait when walking acute February 15, 2025 4:56am Chronic systolic (congestive ) heart failure chronic February 15, 2025 4 :56am Diastolic CHF, acute on chronic chronic February 15, 2025 4 :56am Acute hyperkalemia acute February 192024 7:52pm Acute kidney injury acute February 042024 7:52pm Generalized weakness acute February 19, 2025 7:52pm Hypoxia acute February 19, 2025 7:52pm [facility] Work Phone: 1(155) 267-106902-24-2025 Evaluation note* Diagnosis Onset Date Resolution Status Admit Date Atherosclerotic heart diseas e of [place] coronary artery without angina pectoris chronic November 30, 2024 2:39pm Atrial fibrillation with controlled ventricular rate chronic 2024 2:39pm Essential (primary) hypertension chronic November 30, 2 025 2:39pm HLD (hyperlipidemia) chronic 2024 2:39pm Abdominal aortic aneurysm (AAA) resolved November 30, 2 025 2:39pm Asthma-COPD overlap syndrome inactiv e December 14, 2024 11:48am (HFpEF) heart failure with preserved ejection fraction chronic Rene 2024 8:22am Acute hypoxic respiratory failure noneactive December 28, 2024 8:22am Influenza A noneactive December 28, 2 025 8:22am CKD (chronic kidney disease) stage 3, GFR 30-59 ml/min noneactive December 28, 2024 8:22am Acute exacerbation of COPD with asthma noneactive December 28, 2024 8:22am Controlled type 2 diabetes mellitus noneactive December 28, 2024 8:22am Abrasion of head noneactive December 282024 8:22am Hospital discharge follow-up noneact mo December 28, 2024 8:22am Fall noneactive December 28 8:22am COPD (chronic obstructive pulmonary disease) chronic January 01, 2 025 12:38pm Obstructive sleep apnea chronic M arch 2024 12:38pm Restless legs syndrome chronic Ma rch 2024 12:38pm Episode of shaking noneactive January 06, 2025 2:47pm Restless legs syndrome chronic Ap ril 2024 10:45am Atypical chest pain noneactive February 01, 2025 10:45am Controlled type 2 diabetes mellitus noneactive February 01, 2025 10:45am Recurrent falls noneactive January 10:45am Iron deficiency noneactive January 10:45am Chronic anticoagulation acute M ay 2024 1:30pm Right carotid bruit acute February 042024 1:30pm Atherosclerotic heart diseas e of [place] coronary artery without angina pectoris chronic February 04, 2025 1:30pm Atrial fibrillation with controlled ventricular rate chronic February 04, 2025 1:30pm Essential (primary) hypertension chronic February 04, 2025 1: 30pm HLD (hyperlipidemia) chronic February 04, 2025 1:30pm Abdominal aortic aneurysm (AAA) resolved February 04, 2025 1: 30pm Acute bronchitis inactive February 4:56am Atrial fibrillation/flutter inactive February 15, 2025 4:56am Chronic systolic (congestive ) heart failure inactive February 15, 2025 4 :56am Diastolic CHF, acute on chronic inactive February 15, 2025 4 :56am Elevated troponin inactive February 4:56am Leukocytosis inactive February 15 4:56am Muscle twitching inactive February 4:56am Neuropathy inactive February 15, 2025 4:56am Obesity (BMI 30.0-34.9) inactive M ay 2024 4:56am MARIXA treated with BiPAP inactive Ma y 2024 4:56am Unsteady gait when walking inactive February 15, 2025 4:56am Acute hyperkalemia acute February 192024 7:52pm Acute kidney injury acute February 042024 7:52pm Generalized weakness acute February 19, 2025 7:52pm Hypoxia acute February 19, 2025 7:52pm Acute cough acute March 04 11:20am CHF (congestive heart failure) acute March 04, 2025 11:20am History of diabetes mellitus acute March 04, 2025 11:20am Chronic kidney disease chronic Ma y 2024 11:20am History of COPD chronic March 04, 2025 11:20am [facility] Work Phone: 1(228) 643-568002-24-2025 Evaluation note* Diagnosis Onset Date Resolution Status Admit Date Atherosclerotic heart diseas e of [place] coronary artery without angina pectoris chronic November 30, 2024 2:39pm Atrial fibrillation with controlled ventricular rate chronic Febr uary 2024 2:39pm Essential (primary) hypertension chronic November 30, 025 2:39pm HLD (hyperlipidemia) chronic uary 2024 2:39pm Abdominal aortic aneurysm (AAA) resolved November 30 025 2:39pm Asthma-COPD overlap syndrome inactiv e December 14, 2024 11:48am (HFpEF) heart failure with preserved ejection fraction chronic Rene h 2024 8:22am Acute hypoxic respiratory failure noneactive December 28, 2024 8:22am Influenza A noneactive December 28 8:22am CKD (chronic kidney disease) stage 3, GFR 30-59 ml/min noneactive December 28, 2024 8:22am Acute exacerbation of COPD with asthma noneactive December 28, 2024 8:22am Controlled type 2 diabetes mellitus noneactive December 28, 2024 8:22am Abrasion of head noneactive December 282024 8:22am Hospital discharge follow-up noneact mo December 28, 2024 8:22am Fall noneactive December 28 8:22am COPD (chronic obstructive pulmonary disease) chronic January 01 12:38pm Obstructive sleep apnea chronic M arch 2024 12:38pm Restless legs syndrome chronic Ma rch 2024 12:38pm Episode of shaking noneactive January 06, 2025 2:47pm Restless legs syndrome chronic Ap ril 2024 10:45am Atypical chest pain noneactive February 01, 2025 10:45am Controlled type 2 diabetes mellitus noneactive February 01, 2025 10:45am Recurrent falls noneactive January 10:45am Iron deficiency noneactive January 10:45am Chronic anticoagulation acute M ay 2024 1:30pm Right carotid bruit acute February 042024 1:30pm Atherosclerotic heart diseas e of [place] coronary artery without angina pectoris chronic February 04, 2025 1:30pm Atrial fibrillation with controlled ventricular rate chronic February 04, 2025 1:30pm Essential (primary) hypertension chronic February 04, 2025 1: 30pm HLD (hyperlipidemia) chronic February 04, 2025 1:30pm Abdominal aortic aneurysm (AAA) resolved February 04, 2025 1: 30pm Acute bronchitis inactive February 4:56am Atrial fibrillation/flutter inactive February 15, 2025 4:56am Chronic systolic (congestive ) heart failure inactive February 15, 2025 4 :56am Diastolic CHF, acute on chronic inactive February 15, 2025 4 :56am Elevated troponin inactive February 4:56am Leukocytosis inactive February 15 4:56am Muscle twitching inactive February 4:56am Neuropathy inactive February 15, 2025 4:56am Obesity (BMI 30.0-34.9) inactive ay 2024 4:56am MARIXA treated with BiPAP inactive Ma y 2024 4:56am Unsteady gait when walking inactive February 15, 2025 4:56am Acute hyperkalemia acute February 192024 7:52pm Acute kidney injury acute February 042024 7:52pm Generalized weakness acute February 19, 2025 7:52pm Hypoxia acute February 19, 2025 7:52pm Acute cough acute March 04 11:20am CHF (congestive heart failure) acute March 04, 2025 11:20am History of diabetes mellitus acute March 04, 2025 11:20am Chronic kidney disease chronic 2024 11:20am History of COPD chronic March 04, 2025 11:20am Exertional dyspnea acute March 042024 6:16pm Hypoxemia acute March 04, 2025 6:16pm COPD exacerbation chronic February 6:16pm [facility] Work Phone: 1(855) 254-519202-24-2025 Evaluation note* Diagnosis Onset Date Resolution Status Admit Date Atherosclerotic heart diseas e of [place] coronary artery without angina pectoris chronic November 30, 2024 2:39pm Atrial fibrillation with controlled ventricular rate chronic Febr [id number] 2:39pm Essential (primary) hypertension chronic November 30, 025 2:39pm HLD (hyperlipidemia) chronic 2024 2:39pm Abdominal aortic aneurysm (AAA) resolved November 30 025 2:39pm Asthma-COPD overlap syndrome inactiv e December 14, 2024 11:48am (HFpEF) heart failure with preserved ejection fraction chronic Rene h 2024 8:22am Acute hypoxic respiratory failure noneactive December 28, 2024 8:22am Influenza A noneactive December 28, 025 8:22am CKD (chronic kidney disease) stage 3, GFR 30-59 ml/min noneactive December 28, 2024 8:22am Acute exacerbation of COPD with asthma noneactive December 28, 2024 8:22am Controlled type 2 diabetes mellitus noneactive December 28, 2024 8:22am Abrasion of head noneactive December 282024 8:22am Hospital discharge follow-up noneact mo December 28, 2024 8:22am Fall noneactive December 28 8:22am COPD (chronic obstructive pulmonary disease) chronic January 01 025 12:38pm Obstructive sleep apnea chronic M arch 2024 12:38pm Restless legs syndrome chronic Ma rch 2024 12:38pm Episode of shaking noneactive January 06, 2025 2:47pm Restless legs syndrome chronic Ap ril 2024 10:45am Atypical chest pain noneactive February 01, 2025 10:45am Controlled type 2 diabetes mellitus noneactive February 01, 2025 10:45am Recurrent falls noneactive January 10:45am Iron deficiency noneactive January 10:45am Chronic anticoagulation acute M ay 2024 1:30pm Right carotid bruit acute February 042024 1:30pm Atherosclerotic heart diseas e of [place] coronary artery without angina pectoris chronic February 04, 2025 1:30pm Atrial fibrillation with controlled ventricular rate chronic February 04, 2025 1:30pm Essential (primary) hypertension chronic February 04, 2025 1: 30pm HLD (hyperlipidemia) chronic February 04, 2025 1:30pm Abdominal aortic aneurysm (AAA) resolved February 04, 2025 1: 30pm Acute bronchitis inactive February 4:56am Atrial fibrillation/flutter inactive February 15, 2025 4:56am Chronic systolic (congestive ) heart failure inactive February 15, 2025 4 :56am Diastolic CHF, acute on chronic inactive February 15, 2025 4 :56am Elevated troponin inactive February 4:56am Leukocytosis inactive February 15 4:56am Muscle twitching inactive February 4:56am Neuropathy inactive February 15, 2025 4:56am Obesity (BMI 30.0-34.9) inactive M ay 2024 4:56am MARIXA treated with BiPAP inactive Ma y 2024 4:56am Unsteady gait when walking inactive February 15, 2025 4:56am Acute hyperkalemia acute February 192024 7:52pm Acute kidney injury acute February 042024 7:52pm Generalized weakness acute February 19, 2025 7:52pm Hypoxia acute February 19, 2025 7:52pm Acute cough acute March 04 11:20am CHF (congestive heart failure) acute March 04, 2025 11:20am History of diabetes mellitus acute March 04, 2025 11:20am Chronic kidney disease chronic Ma y 2024 11:20am History of COPD chronic March 04, 2025 11:20am Acute cough acute March 04 5:31pm Acute kidney injury acute February 052024 5:31pm Acute on chronic systolic heart failure due to valvular disease acute March 04, 2025 5 :31pm Anemia acute March 04, 2025 5:31pm Exertional dyspnea acute March 042024 5:31pm History of diabetes mellitus acute March 04, 2025 5:31pm Hypoxemia acute March 04, 2025 5:31pm Peripheral edema acute February 5:31pm Pneumonia acute March 04, 2025 5:31pm Chronic kidney disease chronic Ma y 2024 5:31pm COPD exacerbation chronic February 5:31pm History of COPD chronic March 04, 2025 5:31pm [facility] Work Phone: 1(542) 638-879202-24-2025 Evaluation note* Diagnosis Onset Date Resolution Status Admit Date Atherosclerotic heart diseas e of [place] coronary artery without angina pectoris chronic November 30, 2024 2:39pm Atrial fibrillation with controlled ventricular rate chronic Febr 2024 2:39pm Essential (primary) hypertension chronic November 30 025 2:39pm HLD (hyperlipidemia) chronic 2024 2:39pm Abdominal aortic aneurysm (AAA) resolved November 30 025 2:39pm Asthma-COPD overlap syndrome inactiv e December 14, 2024 11:48am (HFpEF) heart failure with preserved ejection fraction chronic Rene h 2024 8:22am Acute hypoxic respiratory failure noneactive December 28, 2024 8:22am Influenza A noneactive December 28, 8:22am CKD (chronic kidney disease) stage 3, GFR 30-59 ml/min noneactive December 28, 2024 8:22am Acute exacerbation of COPD with asthma noneactive December 28, 2024 8:22am Controlled type 2 diabetes mellitus noneactive December 28, 2024 8:22am Abrasion of head noneactive December 282024 8:22am Hospital discharge follow-up noneact mo December 28, 2024 8:22am Fall noneactive December 28 8:22am COPD (chronic obstructive pulmonary disease) chronic January 01 12:38pm Obstructive sleep apnea chronic M arch 2024 12:38pm Restless legs syndrome chronic Ma rch 2024 12:38pm Episode of shaking noneactive January 06, 2025 2:47pm Restless legs syndrome chronic Ap ril 2024 10:45am Atypical chest pain noneactive February 01, 2025 10:45am Controlled type 2 diabetes mellitus noneactive February 01, 2025 10:45am Recurrent falls noneactive January 10:45am Iron deficiency noneactive January 10:45am Chronic anticoagulation acute M 2024 1:30pm Right carotid bruit acute February 042024 1:30pm Atherosclerotic heart diseas e of [place] coronary artery without angina pectoris chronic February 04, 2025 1:30pm Atrial fibrillation with controlled ventricular rate chronic February 04, 2025 1:30pm Essential (primary) hypertension chronic February 04, 2025 1: 30pm HLD (hyperlipidemia) chronic February 04, 2025 1:30pm Abdominal aortic aneurysm (AAA) resolved February 04, 2025 1: 30pm Acute bronchitis inactive February 4:56am Atrial fibrillation/flutter inactive February 15, 2025 4:56am Chronic systolic (congestive ) heart failure inactive February 15, 2025 4 :56am Diastolic CHF, acute on chronic inactive February 15, 2025 4 :56am Elevated troponin inactive February 4:56am Leukocytosis inactive February 15 4:56am Muscle twitching inactive February 4:56am Neuropathy inactive February 15, 2025 4:56am Obesity (BMI 30.0-34.9) inactive M ay 2024 4:56am MARIXA treated with BiPAP inactive Ma y 2024 4:56am Unsteady gait when walking inactive February 15, 2025 4:56am Acute hyperkalemia acute February 192024 7:52pm Generalized weakness acute February 19, 2025 7:52pm Hypoxia acute February 19, 2025 7:52pm Acute kidney injury resolved February 042024 7:52pm CHF (congestive heart failure) acute March 04, 2025 11:20am Chronic kidney disease chronic Ma y 2024 11:20am Acute cough resolved March 04 11:20am History of COPD inactive March 04, 2025 11:20am History of diabetes mellitus inactiv e March 04, 2025 11:20am Chronic kidney disease chronic Ma y 2024 5:31pm Acute cough resolved March 04 5:31pm Acute kidney injury resolved February 052024 5:31pm Acute on chronic systolic heart failure due to valvular disease resolved March 04, 2025 5 :31pm COPD exacerbation resolved February 5:31pm Exertional dyspnea resolved March 042024 5:31pm Hypoxemia resolved March 04, 2025 5:31pm Pneumonia resolved March 04, 2025 5:31pm Anemia inactive March 04, 2025 5:31pm History of COPD inactive March 04, 2025 5:31pm History of diabetes mellitus inactiv e March 04, 2025 5:31pm Peripheral edema inactive February 5:31pm CHF (congestive heart failure) acute March 12, 2025 12:40pm DM2 (diabetes mellitus, type 2) acute March 12, 2025 1 2:40pm Pneumonia acute March 12, 2025 12:40pm Tremor acute March 15, 2025 12:28pm CHF (congestive heart failure) acute March 19, 2025 12:47pm Atherosclerotic heart diseas e of [place] coronary artery without angina pectoris chronic March 12:47pm Atrial fibrillation with controlled ventricular rate chronic March 19, 2025 12:47pm Essential (primary) hypertension chronic March 19, 2025 12:47pm HLD (hyperlipidemia) chronic March 19, 2025 12:47pm Abdominal aortic aneurysm (AAA) resolved March 19, 2025 12:47pm Obstructive sleep apnea chronic J une 2024 2:08pm Restless legs syndrome chronic Ju ne 2024 2:08pm Asthma-COPD overlap syndrome inactiv e March 23, 2025 2:08pm [facility] [employer] Work Phone: 1(939) 682-667401-10-2025 NoteHNO ID: [id number] Author: VIPUL RICHARD, ? Service: ? Author Type: Physician Type: Progress Notes Filed: 10/16/2024 14:14 Note Text: Last saw pcp: not in chart Subjective: Patient presents to clinic c/o painful toenails. They state that the nails are especially painful with shoe gear and pressure. Patient states that nails right hallux are painful. Patient admits to being diabetic. [...] There is moderate edema or varicosities noted. Non-Invasive Vascular Laboratory [facility] Lower Extremity Arterial Physiology Study Bilateral/Complete Date of service/time: 06/30/2024 11:03:38 AM Name: MR. DESIREE AMES Date of : 1935 Age: 89 years Gender: M Clinical Indication Aortobiiliac graft, right femoral endarterectomy 08/05/2018, left iliofemoral endarterectomy 11/12/2023. TECHNIQUE -------- An arterial physiological examination was performed, including measurement of blood pressures using continuous wave Doppler and recording of plethysmographic with or without Doppler waveforms at the below-mentioned limb segments. FINDINGS -------- RIGHT SIDE AT REST Right Doppler Waveforms Dorsalis pedis: Monophasic. Post tibial: Monophasic. Right Pressures Brachial: 125 mmHg Ankle dorsalis pedis: 87 mmHg MARILEE: 0.69 Ankle posterior tibial: 87 mmHg MARILEE: 0.69 Digit: 66 mmHg Right PVR Waveforms Ankle: Moderately dampened. Transmetatarsal: Moderately dampened. Digit: Moderately dampened. LEFT SIDE AT REST Left Doppler Waveforms Dorsalis pedis: Monophasic. Post tibial: Monophasic. Left Pressures Brachial: 126 mmHg Ankle dorsalis pedis: 78 mmHg MARILEE: 0.62 Ankle posterior tibial: 76 mmHg MARILEE: 0.60 Digit: 77 mmHg Left PVR Waveforms Ankle: Moderately dampened. Transmetatarsal: Moderately dampened. Digit: Moderately dampened. IMPRESSION Compared to prior study of 10/17/2023, Right ankle brachial index was 0.86 and left was 0.34. RIGHT SIDE Resting right ankle brachial index: 0.69 Right toe brachial index: 0.52 Abnormal ankle brachial index at rest diagnostic of peripheral artery disease. Abnormal toe brachial index at rest is evidence of peripheral artery disease. Right ankle: Moderate disease at rest. LEFT SIDE Resting left ankle brachial index: 0.62 Left toe brachial index: 0.61 Abnormal ankle brachial index at rest diagnostic of peripheral artery disease. Abnormal toe brachial index at rest is evidence of peripheral artery disease. Left ankle: Moderate disease at rest. Technologist: Scarlet Bray RVT, [facility] Ordering physician: RENE ZAPATA Interpreting physician: RANJEET Clements DO Neuro: Protective sensation is decreased to the foot and toes when tested with the 5.07 SWM bilateral. Vibratory sensation is absent at the hallux IPJ bilateral. The hallux is downgoing bilateral. Derm: Nails 1-5 b/l are painful, incurvated, discolored-yellow, thick, crumbly, dystrophic and with subungal debris. Skin is dry and hair growth is absent bilateral. There [...] mellitus (HCC) (I73.9) PAD (peripheral artery disease) ([facility]) Plan: Patient was seen and evaluated. Nails 1-5 bilateral were debrided in length and thickness. Discussed his right great toenail. This is an ongoing issue because of the thickening and incurvation. He was wondering about removal of the toenail. I reviewed his pvr from June 2024. His tbi and marilee of the b/l foot is abnormal. I suspect if he were to have the nail removed, he would be at great risk of nonhealing. I informed patient that I will check with vascular but I suspect he is not a candidate for removal. Patient was instructed on the continued importance of diabetic foot care along with proper diet and keeping their blood sugar under control to prevent complications. Stressed the importance of avoiding barefoot walking, wearing good shoes and inspection of feet. Patient is to RTC in 3-4 months. Vipul Richard [facility]01-10-2025 History of Present illness Narrative* Vipul Richard - 10/16/2024 1:40 PM EST Last saw pcp: not in chart Subjective: Patient presents to clinic c/o painful toenails. They state that the nails are especially painful with shoe gear and pressure. Patient states that nails right hallux are painful. Patient admits to being diabetic. No other pedal complaints at this time. Patient states no change in medications or medical history since last visit. Objective: [facility] Vasc: DP and PT pulses are nonpalpable bilateral. CFT is less than 5 seconds bilateral. Skin temperature is warm to cool proximal to distal bilateral. There is moderate edema or varicosities noted. Non-Invasive Vascular Laboratory [facility] Lower Extremity Arterial Physiology Study Bilateral/Complete Date of service/time: 06/30/2024 11:03:38 AM Name: MR. DESIREE AMES Date of : 1935 Age: 89 years Gender: M Clinical Indication Aortobiiliac graft, right femoral endarterectomy 08/05/2018, left iliofemoral endarterectomy 11/12/2023. TECHNIQUE -------- An arterial physiological examination was performed, including measurement of blood pressures using continuous wave Doppler and recording of plethysmographic with or without Doppler waveforms at the below-mentioned limb segments. FINDINGS -------- RIGHT SIDE AT REST Right Doppler Waveforms Dorsalis pedis: Monophasic. Post tibial: Monophasic. Right Pressures Brachial: 125 mmHg Ankle dorsalis pedis: 87 mmHg MARILEE: 0.69 Ankle posterior tibial: 87 mmHg MARILEE: 0.69 Digit: 66 mmHg Right PVR Waveforms Ankle: Moderately dampened. Transmetatarsal: Moderately dampened. Digit: Moderately dampened. LEFT SIDE AT REST Left Doppler Waveforms Dorsalis pedis: Monophasic. Post tibial: Monophasic. Left Pressures Brachial: 126 mmHg Ankle dorsalis pedis: 78 mmHg MARILEE: 0.62 Ankle posterior tibial: 76 mmHg MARILEE: 0.60 Digit: 77 mmHg Left PVR Waveforms Ankle: Moderately dampened. Transmetatarsal: Moderately dampened. Digit: Moderately dampened. IMPRESSION Compared to prior study of 10/17/2023, Right ankle brachial index was 0.86 and left was 0.34. RIGHT SIDE Resting right ankle brachial index: 0.69 Right toe brachial index: 0.52 Abnormal ankle brachial index at rest diagnostic of peripheral artery disease. Abnormal toe brachial index at rest is evidence of peripheral artery disease. Right ankle: Moderate disease at rest. LEFT SIDE Resting left ankle brachial index: 0.62 Left toe brachial index: 0.61 Abnormal ankle brachial index at rest diagnostic of peripheral artery disease. Abnormal toe brachial index at rest is evidence of peripheral artery disease. Left ankle: Moderate disease at rest. Technologist: Scarlet Bray RVT, [facility] Ordering physician: RENE ZAPATA Interpreting physician: RANJEET Clements DO Neuro: Protective sensation is decreased to the foot and toes when tested with the 5.07 SWM bilateral. Vibratory sensation is absent at the hallux IPJ bilateral. The hallux is downgoing bilateral. Derm: Nails 1-5 b/l are painful, incurvated, discolored-yellow, thick, crumbly, dystrophic and withsubungal debris. Skin is dry and hair growth is absent bilateral. There [...] polyneuropathy associated with type 2 diabetes mellitus ([facility]) (I73.9) PAD (peripheral artery disease) ([facility]) Plan: Patient was seen and evaluated. Nails 1-5 bilateral were debrided in length and thickness. Discussed his right great toenail. This is an ongoing issue because of the thickening and incurvation. He was wondering about removal of the toenail. I reviewed his pvr from June 2024. His tbi and marilee of the b/l foot is abnormal. I suspect if he were to have the nail removed, he would be at great risk of nonhealing. I informed patient that I will check with vascular but I suspect he is not acandidate for removal. Patient was instructed on the continued importance of diabetic foot care along with proper diet andkeeping their blood sugar under control to prevent complications. Stressed the importance of avoiding barefoot walking, wearing good shoes and inspection of feet. Patient is to RTC in 3-4 months. Vipul Richard DPM * Lashanda Murillo RN - 10/16/2024 1:29 PM EST AMB ROOMING INTAKE FLOWSHEET DATA Risk Screening Do you have concerns about personal safety or safety in the home?: No Pain Pain Level: 8 Pain Location: Toe (Right big toe) Duration Amount of Time: (few) Duration Units: Days Frequency: Continuous Intervention/Comfort measure: Relaxation, Reposition Patient presents with: Left Foot - Established Patient, Follow Up, Diabetic Foot Care Right Foot - Established Patient, Follow Up, Diabetic Foot Care Patient presents for 9 week follow up diabetic foot/nail care. [facility] NoteHNO ID: [id number] Author: LASHANDA MURILLO RN Service: ? Author Type: Registered Nurse Type: Progress Notes Filed: 10/16/2024 14:14 Note Text: AMB ROOMING INTAKE FLOWSHEET DATA Risk Screening Do you have concerns about personal safety or safety in the home?: No Pain Pain Level: 8 Pain Location: Toe (Right big toe) Duration Amount of Time: (few) Duration Units: Days Frequency: Continuous Intervention/Comfort measure: Relaxation, Reposition Patient presents with: Left Foot - Established Patient, Follow Up, Diabetic Foot Care Right Foot - Established Patient, Follow Up, Diabetic Foot Care Patient presents for 9 week follow up diabetic foot/nail care. [facility] 08/14/24[facility]12-31-2024 Evaluation note* Diagnosis Onset Date Resolution Status Admit Date Obstructive sleep apnea chronic D ecember 2023 1:09pm Restless legs syndrome chronic De cember 2023 1:09pm Asthma-COPD overlap syndrome inactiv e October 06, 2024 1:09pm Atherosclerotic heart diseas e of [place] coronary artery without angina pectoris chronic November 30, 2024 2:39pm Atrial fibrillation with controlled ventricular rate chronic 2024 2:39pm Essential (primary) hypertension chronic November 30, 025 2:39pm HLD (hyperlipidemia) chronic 2024 2:39pm Abdominal aortic aneurysm (AAA) resolved November 30, 2 025 2:39pm Asthma-COPD overlap syndrome inactiv e December 14, 2024 11:48am (HFpEF) heart failure with preserved ejection fraction chronic Rene h 2024 8:22am Acute hypoxic respiratory failure noneactive December 28, 2024 8:22am Influenza A noneactive December 28, 025 8:22am CKD (chronic kidney disease) stage 3, GFR 30-59 ml/min noneactive December 28, 2024 8:22am Acute exacerbation of COPD with asthma noneactive December 28, 2024 8:22am Controlled type 2 diabetes mellitus noneactive December 28, 2024 8:22am Abrasion of head noneactive December 282024 8:22am Hospital discharge follow-up noneact mo December 28, 2024 8:22am Fall noneactive December 28 8:22am COPD (chronic obstructive pulmonary disease) chronic January 01, 025 12:38pm Obstructive sleep apnea chronic M arch 2024 12:38pm Restless legs syndrome chronic [facility] 2024 12:38pm [facility] Work Phone: 1([phone]) 853-516812-31-2024 Evaluation note* Diagnosis Onset Date Resolution Status Admit Date Obstructive sleep apnea chronic D ecember 2023 1:09pm Restless legs syndrome chronic De cember 2023 1:09pm Asthma-COPD overlap syndrome inactiv e October 06, 2024 1:09pm Atherosclerotic heart diseas e of [place] coronary artery without angina pectoris chronic November 30, 2024 2:39pm Atrial fibrillation with controlled ventricular rate chronic Febr uary 2024 2:39pm Essential (primary) hypertension chronic November 30, 2 025 2:39pm HLD (hyperlipidemia) chronic Febr uary 2024 2:39pm Abdominal aortic aneurysm (AAA) resolved November 30, 2 025 2:39pm Asthma-COPD overlap syndrome inactiv e December 14, 2024 11:48am (HFpEF) heart failure with preserved ejection fraction chronic Rene h 2024 8:22am Acute hypoxic respiratory failure noneactive December 28, 2024 8:22am Influenza A noneactive December 28, 025 8:22am CKD (chronic kidney disease) stage 3, GFR 30-59 ml/min noneactive December 28, 2024 8:22am Acute exacerbation of COPD with asthma noneactive December 28, 2024 8:22am Controlled type 2 diabetes mellitus noneactive December 28, 2024 8:22am Abrasion of head noneactive December 282024 8:22am Hospital discharge follow-up noneact mo December 28, 2024 8:22am Fall noneactive December 28 8:22am COPD (chronic obstructive pulmonary disease) chronic January 01, 2 025 12:38pm Obstructive sleep apnea chronic M arch 2024 12:38pm Restless legs syndrome chronic [facility] 2024 12:38pm Episode of shaking noneactive January 06, 2025 2:47pm [facility] Work Phone: 1(439) 721-459811-18-2024 Evaluation note* Diagnosis Onset Date Resolution Status Admit Date Atrial fibrillation acute Novem 2023 1:46pm Lower back pain acute August 24, 2024 1:46pm (HFpEF) heart failure with preserved ejection fraction chronic [facility] 2023 1:46pm COPD (chronic obstructive pulmonary disease) chronic August 1:46pm Essential (primary) hypertension chronic August 24, 2 024 1:46pm Obstructive sleep apnea chronic N ovember 2023 1:46pm Peripheral vascular disease of extremity with claudication chronic [facility] 2023 1:46pm Medicare annual wellness visit, subsequent noneactive August 24, 2024 1:46pm Immunization due noneactive August 24, 2024 1:46pm Thyroid nodule noneactive August 072023 1:46pm CKD (chronic kidney disease) stage 3, GFR 30-59 ml/min noneactive Novemb er 2023 1:46pm Controlled type 2 diabetes mellitus noneactive August 24, 2 024 1:46pm Asthma-COPD overlap syndrome chronic October 06, 2024 1:09pm Obstructive sleep apnea chronic D ecember 2023 1:09pm Restless legs syndrome chronic De cember 2023 1:09pm Atherosclerotic heart diseas e of [place] coronary artery without angina pectoris chronic November 30, 2024 2:39pm Atrial fibrillation with controlled ventricular rate chronic Febr uary 2024 2:39pm Essential (primary) hypertension chronic November 30 2:39pm HLD (hyperlipidemia) chronic Febr uary 2024 2:39pm Abdominal aortic aneurysm (AAA) resolved November 30 2:39pm [facility] Work Phone: 1(616) 664-608911-08-2024 NoteHNO ID: [id number] Author: VIPUL RICHARD, ? Service: ? Author Type: Physician Type: Progress Notes Filed: 08/14/2024 12:02 Note Text: Last saw pcp: not in chart Subjective: Patient presents to clinic c/o painful toenails. They state that the nails are especially painful with shoe gear and pressure. Patient states that nails 1-5 b/l are painful. Patient admits to being diabetic and states that their blood sugar was 167 mg/dL this AM. No other pedal complaints at this time. Patient states no change in medications or medical history since last visit. Objective: Patient presents to clinic ambulating in [facility] Vasc: DP and PT pulses are faintly palpable bilateral. CFT is less than 5 seconds bilateral. Skin temperature is warm to cool proximal to distal bilateral. There is mild edema or varicosities noted. Neuro: Protective sensation is decreased to the foot and toes when tested with the 5.07 SWM bilateral. Vibratory sensation is absent at the hallux IPJ bilateral. The hallux is downgoing bilateral. Derm: Nails 1-5 b/l are painful, discolored-yellow, thick, crumbly, dystrophic and with subungal debris. Skin is of normal turgor, texture and hair growth is decreased bilateral. There are no hyperkeratosis, ulcerations, scars, [...] blood sugar under control to prevent complications. Stressed the importance of avoiding barefoot walking, wearing good shoes and inspection of feet daily Patient is to RTC in 3-4 months. Vipul Damarispadilla [facility]11-08-2024 History of Present illness Narrative* Vipul Richard - 08/14/2024 12:01 PM EST Last saw pcp: not in chart Subjective: Patient presents to clinic c/o painful toenails. They state that the nails are especially painful with shoe gear and pressure. Patient states that nails 1-5 b/l are painful. Patient admits to being diabetic and states that their blood sugar was 167 mg/dL this AM. No other pedal complaints at this time. Patient states no change in medications or medical history since last visit. Objective: Patient presents to clinic ambulating in sneaker Vasc: DP and PT pulses are faintly palpable bilateral. CFT is less than 5 seconds bilateral. Skin temperature is warm to cool proximal to distal bilateral. There is mild edema or varicosities noted. Neuro: Protective sensation is decreased to the foot and toes when tested with the 5.07 SWM bilateral. Vibratory sensation is absent at the hallux IPJ bilateral. The hallux is downgoing bilateral. Derm: Nails 1-5 b/l are painful, discolored-yellow, thick, crumbly, dystrophic and with subungal debris. Skin is of normal turgor, texture and hair growth is decreased bilateral. There are no hyperkeratosis, ulcerations, scars, [...] blood sugar under control to prevent complications. Stressed the importance of avoiding barefoot walking, wearing good shoes and inspection of feet daily Patient is to RTC in 3-4 months. Vipul Richard DPM * Lashanda Murillo RN - 08/14/2024 11:28 AM EST Patient presents with: Left Foot - Established Patient, Follow Up, Diabetic Foot Care Right Foot - Established Patient, Follow Up, Diabetic Foot Care Patient presents for 9 week follow up diabetic foot/nail care. [facility] 06/11/24 documented in this encounterUniversity [facility]11-[facility]24 NoteHNO ID: [id number] Author: LASHANDA MURILLO RN Service: ? Author Type: Registered Nurse Type: Progress Notes Filed: 08/14/2024 12:02 Note Text: Patient presents with: Left Foot - Established Patient, Follow Up, Diabetic Foot Care Right Foot - Established Patient, Follow Up, Diabetic Foot Care Patient presents for 9 week follow up diabetic foot/nail care. [facility] 06/11/24[facility]09-24-2024 NoteHNO ID: [id number] Author: DARRYL MALLORY, DO Service: ? Author Type: Physician Type: Progress Notes Filed: 06/30/2024 13:42 Note Text: [facility]PART[facility] OF VASCULAR SURGERY OUTPATIENT VISIT DATE June 30, 2024 OUTPATIENT VISIT TYPE ESTABLISHED SERVICE DATE: 06/30/2024 SERVICE TIME: 11:31 AM PRIMARY CARE PHYSICIAN: Riaz Garrison MD HISTORY OF PRESENT ILLNESS: Mr. Ames is a 89 year old male who presents today for a vascular surgery follow-up visit for peripheral arterial disease. He is s/p femoral endarterectomy in 11/[address] Zapata. Denies rest pain. He is getting treated for spine and hip pain. 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 Hilliard. Coronary atherosclerosis of unspecified type of vessel, [place] or graft 06/13/2005 Diverticulitis of colon (without [...] 08/21/2023 Superficial occlusion of femoral artery (HCC) Symptom of leg swelling 12/12/2023 Tobacco use disorder 06/12/2005 Type II or unspecified type diabetes mellitus without mention of complication, not stated as uncontrolled 01/24/2011 Unspecified essential hypertension 06/12/2005 Venous insufficiency (chronic) (peripheral) 05/11/2015 PAST SURGICAL HISTORY Procedure Laterality Date APPENDECTOMY DONE W/OTHR MAJOR SURGERY 1998 With inguinal hernia repair [facility] INCL FLUOR GDNCE DX W/CELL WASHG [...] percut, Prox. RCA. TRANSURETHRAL ELEC-SURG PROSTATECTOM 03/07/2022 SOCIAL HISTORY Social History Tobacco Use Smoking status: Former Current packs/day: 0.00 Average packs/day: 0.5 packs/day for 50.0 years (25.0 ttl pk-yrs) Types: Cigarettes, Cigars Start date: 02/04/1958 Quit date: 02/05/2008 Years since quittin.4 Smokeless tobacco: Never Vaping Use Vaping status: Never Used Substance Use Topics Alcohol use: Yes Comment: Rare Drug use: No MEDICATIONS: tamsulosin (FLOMAX) 0.4 mg Take 0.4 mg by mouth once daily. finasteride (PROSCAR) 5 mg tablet Take 1 tablet by mouth every afternoon. insulin lispro (HUMALOG KWIKPEN INSULIN) 100 unit/mL Inject 10 Units subcutaneously three times a day before meals. ELIQUIS 2.5 mg tab(s) (more content not included)...[facility] 06-30-2024 History of Present illness Narrative* Darryl Mallory, DO - 06/30/2024 11:31 AM EDT Images from the original note were not included. [facility]PARTMENT OF VASCULAR SURGERY OUTPATIENT VISIT DATE June 30, 2024 OUTPATIENT VISIT TYPE ESTABLISHED SERVICE DATE: 06/30/2024 SERVICE TIME: 11:31 AM PRIMARY CARE PHYSICIAN: Riaz Garrison MD HISTORY OF PRESENT ILLNESS: Mr. Ames is a 89 year old male who presents today for a vascular surgery follow-up visit for peripheral arterial disease. He is s/p femoral endarterectomy in 11/[address] Zapata. Denies rest pain. He is getting treated for spine and hip pain. 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 Hilliard. Coronary atherosclerosis of unspecified type of vessel, [place] or graft 06/13/2005 Diverticulitis of colon (without [...] 08/21/2023 Superficial occlusion of femoral artery (HCC) Symptom of leg swelling 12/12/2023 Tobacco use disorder 06/12/2005 Type II or unspecified type diabetes mellitus without mention of complication, not stated as uncontrolled 01/24/2011 Unspecified essential hypertension 06/12/2005 Venous insufficiency (chronic) (peripheral) 05/11/2015 PAST SURGICAL HISTORY Procedure Laterality Date APPENDECTOMY DONE W/OTHR MAJOR SURGERY 1998 With inguinal hernia repair [facility] INCL FLUOR GDNCE DX W/CELL WASHG [...] percut, Prox. RCA. TRANSURETHRAL ELEC-SURG PROSTATECTOM 03/07/2022 SOCIAL HISTORY Social History Tobacco Use Smoking status: Former Current packs/day: 0.00 Average packs/day: 0.5 packs/day for 50.0 years (25.0 ttl pk-yrs) Types: Cigarettes, Cigars Start date: 02/04/1958 Quit date: 02/05/2008 Years since quittin.4 Smokeless tobacco: Never Vaping Use Vaping status: Never Used Substance Use Topics Alcohol use: Yes Comment: Rare Drug use: No MEDICATIONS: tamsulosin (FLOMAX) 0.4 mg Take 0.4 mg by mouth once daily. finasteride (PROSCAR) 5 mg tablet Take 1 tablet by mouth every afternoon. insulin lispro (HUMALOG KWIKPEN INSULIN) 100 unit/mL Inject 10 Units subcutaneously three times a day before meals. ELIQUIS 2.5 mg tab(s) Take 1 tablet by mouth every 12 hours. budesonide-formoterol (SYMBICORT) 160-4.5 mcg/actuation inhaler inhale2 puffs BY MOUTH twice a day;administer with spacer, rinse mouth after each use] FEROSUL 325 mg (65 mg iron) tablet Take 1 tablet by mouth every other day. azithromycin (ZITHROMAX) 250 mg tablet senna-docusate (SENNA-S) 8.6-50 mg per tablet Take 1 tablet by mouth two times a day. SEMGLEE,INSULIN GLARG-YFGN,PEN 100 unit/mL (3 mL) insulin pen (Patient not taking: Reported on 06/11/2024) UNIFINE PENTIPS 31 gauge x 1/4 ndle once daily. meclizine (ANTIVERT) 25 mg tab meclizine hydrochloride 25 mg oral tablet (4 sources) Antiemetic Start: 09-13-2023 (Patient not taking: Reported on 11/25/2023) clopidogrel (PLAVIX) 75 mg tablet Take 1 tablet by mouth once daily. (Patient not taking: Reported on 11/25/2023) insulin glargine (LANTUS SOLOSTAR U-100 INSULIN) 100 unit/mL (3 mL) Inject 18 Units subcutaneously once daily. amLODIPine (NORVASC) 10 mg tablet Take 10 mg by mouth once daily. (Patient not taking: Reported on 02/27/2024) AMMONIUM LACTATE TOPICAL Apply to affected area as needed. Lotion dapagliflozin propanediol (FARXIGA) 10 mg tablet Take 10 mg by mouth daily with breakfast. (Patientnot taking: Reported on 11/25/2023) spironolactone (ALDACTONE) 25 mg tablet Take 25 mg by mouth as needed. (Patient not taking: Reported on 02/27/2024) ipratropium-albuterol (DUONEB) 0.5 mg-3 mg(2.5 mg base)/3 mL nebu 4 TIMES DAILY NEEDED furosemide (LASIX) 40 mg tablet Take 80 mg by mouth two times a day. carvedilol (COREG) 25 mg tablet Take 1 tablet by mouth twice daily. Dr. Pierre. (Patient not taking:Reported on 06/11/2024) hydrALAZINE (APRESOLINE) 100 mg tablet Take 100 mg by mouth two times a day. Dr. Pierre. rOPINIRole (REQUIP) 0.5 mg tablet Take 1-3 tablets by mouth at bedtime as needed. Dr. Rivero acetaminophen (TYLENOL) 500 mg tablet Take 500 mg by mouth every 6 hours as needed. albuterol HFA (PROVENTIL HFA, [...] 2 Sprays in the nose once daily. (Patient not taking: Reported on 02/27/2024) atorvastatin (LIPITOR) 40 mg tablet Take 1 tablet by mouth every other day. At bedtime for cholesterol. nitroglycerin sublingual (NITROSTAT) 0.4 mg SL tablet Dissolve 1 tablet under the tongue every 5 minutes as needed for Chest Pain. Aspirin 81 mg ORAL Tab Take 1 tablet by mouth once daily. Take with food. ALLERGIES: ALLERGIES Allergen Reactions Levaquin [Levofloxa* Hives Felodipine Rash Pletal [Cilostazol] Itching Sulfa (Sulfonamide * Itching PHYSICAL EXAM: There were no vitals taken for this visit. Gen- no distress Ext- trace edema, varicose veins, warm, well perfused Diagnostic tests reviewed for today's visit: Most recent labs Most recent imaging PVRs- Compared to prior study of 10/17/2023, Right ankle brachial index was 0.86 and left was 0.34. RIGHT SIDE Resting right ankle brachial index: 0.69 Right toe brachial index: 0.52 Abnormal ankle brachial index at rest diagnostic of peripheral artery disease. Abnormal toe brachial index at rest is evidence of peripheral artery disease. Right ankle: Moderate disease at rest. LEFT SIDE Resting left ankle brachial index: 0.62 Left toe brachial index: 0.61 Abnormal ankle brachial index at rest diagnostic of peripheral artery disease. Abnormal toe brachial index at rest is evidence of peripheral artery disease. Left ankle: Moderate disease at rest. IMPRESSION: Mr. Ames is a 89 year old male with peripheral arterial disease . PLAN and RECOMMENDATIONS: Recommend continued blood pressure and cholesterol control Follow up in 6 months SIGNATURE: Darryl Mallory DO PATIENT NAME: Desiree Ames DATE: June 30, 2024 TIME: 11:32 AM documented in this encounterUniversity Hospitals [facility]09-23-2024 [facility]09-05-2024 NoteHNO ID: [id number] Author: VIPUL RICHARD, ? Service: ? Author Type: Physician Type: Progress Notes Filed: 06/14/2024 22:47 Note Text: Last saw pcp: 04/06/24 Subjective: Patient presents to clinic c/o painful toenails. They state that the nails are especially painful with shoe gear and pressure. Patient states that hallux nails are painful. Patient admits to being diabetic. No other pedal complaints at this time. Patient states no change in medications or medical history since last visit. Objective: Patient presents to clinic ambulating in [facility] Vasc: DP and PT pulses are nonpalpable bilateral. CFT is less than 5 seconds bilateral. Skin temperature is warm to cool proximal to distal bilateral. There is mild edema or varicosities noted. Non-Invasive Vascular Laboratory [facility] Lower Extremity Arterial Physiology Study Bilateral/Complete Date of service/time: 10/17/2023 11:01:30 AM Name: MR. DESIREE AMES Date of : 1935 Age: 88 years Gender: M Medical History Tobacco: Former Coronary disease: Yes PAD: Yes Hypertension: Yes Diabetes: Yes Clinical Indication Claudication and Status post aortobiiliac graft and right femoral artery endarterectomy and profundoplasty 08/05/2018 and right external iliac artery lithotripsy and DCB 09/06/2023. TECHNIQUE -------- An arterial physiological examination was performed, including measurement of blood pressures using continuous wave Doppler and recording of plethysmographic with or without Doppler waveforms at the below-mentioned limb segments. FINDINGS -------- RIGHT SIDE AT REST Right Doppler Waveforms Dorsalis pedis: Multiphasic. Post tibial: Multiphasic. Right Pressures Brachial: 164 mmHg Ankle dorsalis pedis: 139 mmHg MARILEE: 0.85 Ankle posterior tibial: 141 mmHg MARILEE: 0.86 Right PVR Waveforms High thigh: Mildly dampened. Low thigh: Mildly dampened. Calf: Moderately dampened. Ankle: Mildly dampened. Transmetatarsal: Mildly dampened. Digit: Mildly dampened. LEFT SIDE AT REST Left Doppler Waveforms Dorsalis pedis: Unable to obtain. Post tibial: Monophasic. Left Pressures Brachial: 158 mmHg Ankle dorsalis pedis: Not audible. Ankle posterior tibial: 55 mmHg MARILEE: 0.34 Left PVR Waveforms High thigh: Moderately dampened. Low thigh: Moderately dampened. Calf: Moderately dampened. Ankle: Moderately dampened. Transmetatarsal: Severely dampened. Digit: Severely dampened. IMPRESSION The patient has an MARILEE consistent with a diagnosis of peripheral artery disease. Consider referral to a vascular specialist for evaluation unless already implemented. Unable to obtain thigh and calf pressures due to patient movement. May wish other form of evaluation. Technically difficult exam due to patient's movement. Compared to prior study of 02/05/2023, Ankle brachial index was .93, in the right leg and .60, in the left leg. RIGHT SIDE Resting right ankle brachial index: 0.86 Abnormal ankle brachial index at rest diagnostic of peripheral artery disease. Right ankle: Mild disease at rest. Aortic or bilateral iliofemoral disease. Right distal superficial femoral and/or popliteal disease. LEFT SIDE Resting left ankle brachial index: 0.34 Abnormal ankle brachial index at rest diagnostic of peripheral artery disease. Left ankle: Severe disease at rest. Aortic or bilateral iliofemoral disease. Left superficial femoral disease. Left distal superficial femoral and/or popliteal disease. Technologist: Adia De Paz T Ordering physician: RENE ZAPATA Interpreting physician: RANJEET Lira MD Neuro: Protective sensation is decreased to the foot and toes when tested [...] were debrided in length and thickness. Discussed options for the toenails not limited to topical medication (low success) vs oral medication vs removal of toenails. I do have concerns about slo (more content not included)...[facility]09-05-2024 History of Present illness Narrative* Vipul Richard - 06/11/2024 1:06 PM EDT Last saw pcp: 04/06/24 Subjective: Patient presents to clinic c/o painful toenails. They state that the nails are especially painful with shoe gear and pressure. Patient states that hallux nails are painful. Patient admitsto being diabetic. No other pedal complaints at [...] edema or varicosities noted. Non-Invasive Vascular Laboratory [facility] Lower Extremity Arterial Physiology Study Bilateral/Complete Date of service/time: 10/17/2023 11:01:30 AM Name: MR. DESIREE AMES Date of : 1935 Age: 88 years Gender: M Medical History Tobacco: Former Coronary disease: Yes PAD: Yes Hypertension: Yes Diabetes: Yes Clinical Indication Claudication and Status post aortobiiliac graft and right femoral artery endarterectomy and profundoplasty 08/05/2018 and right external iliac artery lithotripsy and DCB 09/06/2023. TECHNIQUE -------- An arterial physiological examination was performed, including measurement of blood pressures using continuous wave Doppler and recording of plethysmographic with or without Doppler waveforms at the below-mentioned limb segments. FINDINGS -------- RIGHT SIDE AT REST Right Doppler Waveforms Dorsalis pedis: Multiphasic. Post tibial: Multiphasic. Right Pressures Brachial: 164 mmHg Ankle dorsalis pedis: 139 mmHg MARILEE: 0.85 Ankle posterior tibial: 141 mmHg MARILEE: 0.86 Right PVR Waveforms High thigh: Mildly dampened. Low thigh: Mildly dampened. Calf: Moderately dampened. Ankle: Mildly dampened. Transmetatarsal: Mildly dampened. Digit: Mildly dampened. LEFT SIDE AT REST Left Doppler Waveforms Dorsalis pedis: Unable to obtain. Post tibial: Monophasic. Left Pressures Brachial: 158 mmHg Ankle dorsalis pedis: Not audible. Ankle posterior tibial: 55 mmHg MARILEE: 0.34 Left PVR Waveforms High thigh: Moderately dampened. Low thigh: Moderately dampened. Calf: Moderately dampened. Ankle: Moderately dampened. Transmetatarsal: Severely dampened. Digit: Severely dampened. IMPRESSION The patient has an MARILEE consistent with a diagnosis of peripheral artery disease. Consider referral to a vascular specialist for evaluation unless already implemented. Unable to obtain thigh and calf pressures due to patient movement. May wish other form of evaluation. Technically difficult exam due to patient's movement. Compared to prior study of 02/05/2023, Ankle brachial index was .93, in the right leg and .60, in the left leg. RIGHT SIDE Resting right ankle brachial index: 0.86 Abnormal ankle brachial index at rest diagnostic of peripheral artery disease. Right ankle: Mild disease at rest. Aortic or bilateral iliofemoral disease. Right distal superficial femoral and/or popliteal disease. LEFT SIDE Resting left ankle brachial index: 0.34 Abnormal ankle brachial index at rest diagnostic of peripheral artery disease. Left ankle: Severe disease at rest. Aortic or bilateral iliofemoral disease. Left superficial femoral disease. Left distal superficial femoral and/or popliteal disease. Technologist: Adia De Paz [facility] Ordering physician: RENE ZAPATA Interpreting physician: RANJEET Lira MD Neuro: Protective sensation is decreased to the foot and toes when tested [...] were debrided in length and thickness. Discussed options for the toenails not limited to topical medication (low success) vs oral medication vs removal of toenails. I do have concerns about slow healing if he were to proceed with removal of toenails so I don't think this is an option. We discussed lamisil but given other medications he is currently taking, he is not interested. Will continue with periodic debridement. Patient was instructed on the continued importance of diabetic foot care along with proper diet andkeeping their blood sugar under control to prevent complications. Stressed the importance of avoiding barefoot walking, wearing good shoes and daily foot inspection. Patient is to RTC in 3-4 months. Vipul Richard DPM * Lashanda Murillo RN - 06/11/2024 12:57 PM EDT Patient presents with: Left Foot - Established Patient, Follow Up, Diabetic Foot Care Right Foot - Established Patient, Follow Up, Diabetic Foot Care Patient presents for follow up diabetic foot care. LYNDSEY 03/30/24 documented in this encounterUniversity Hospitals [facility]09-05-2024 Instructions* Patient Instructions* Vipul Richard - 06/11/2024 1:06 PM EDT Diabetes Foot Care Instructions When [...] it. Apply a bandage and wear a differentpair of shoes. Take Care of Your Toenails Cut toenails after bathing, when they are soft. Cut toenails straight across and smooth with a nail file. Avoid cutting into the corners of toes. Do not cut cuticles. If you have neuropathy (or decreased sensation in your feet) a instructor dramatic arts should always cut your toenails. Be Careful [...] make sure there are no foreign objects orrough areas. Avoid tight socks. Wear natural-fiber socks [...] Go to your health care provider or instructor dramatic arts to treat these conditions. documented in this encounterUniversity Hospitals [facility]09-05-2024 NoteHNO ID: [id number] Author: LASHANDA MURILLO RN Service: ? Author Type: Registered Nurse Type: Progress Notes Filed: 06/14/2024 22:47 Note Text: Patient presents with: Left Foot - Established Patient, Follow Up, Diabetic Foot Care Right Foot - Established Patient, Follow Up, Diabetic Foot Care Patient presents for follow up diabetic foot care. [facility] 03/30/24[facility]20[facility] Instructions* Patient Instructions* Vipul Richard - 03/30/2024 1:43 PM EDT Diabetes Foot Care Instructions When [...] it. Apply a bandage and wear a differentpair of shoes. Take Care of Your Toenails Cut toenails after bathing, when they are soft. Cut toenails straight across and smooth with a nail file. Avoid cutting into the corners of toes. Do not cut cuticles. If you have neuropathy (or decreased sensation in your feet) a instructor dramatic arts should always cut your toenails. Be Careful [...] make sure there are no foreign objects orrough areas. Avoid tight socks. Wear natural-fiber socks [...] Go to your health care provider or instructor dramatic arts to treat these conditions. documented in this encounterUniversity Hospitals [facility] Center2024 History of Present illness Narrative* Vipul Richard - 03/30/2024 1:42 PM EDT Last saw pcp::Not in chart Subjective: Patient presents to clinic c/o painful toenails. They state that the nails are especially painful with shoe gear and pressure. Patient states that nails b/l hallux are painful. Patient admits to being diabetic. [...] or varicosities noted. Neuro: Protective sensation is decreased to the foot and toes when tested [...] left foot (I73.9) PAD (peripheral artery disease) ([facility]) (E11.42) Diabetic polyneuropathy associated with type 2 diabetes mellitus ([facility]) Plan: Patient was seen and evaluated. Nails 1-5 bilateral were debrided in length and thickness. Small bleed to b/l 4th nail and right hallux. Topical antibiotic applied Discussed removal of toenails but patient has elected to contineu with conservative care. Past pvr shows decreased perfusion so not a candidate for removal. Patient was instructed on the continued importance of diabetic foot care along with proper diet andkeeping their blood sugar under control to prevent complications. Discussed the importance of avoiding barefoot walking, wearing good shoes and inspecting feet daily. Patient is to RTC in 3-4 months. Vipul Richard DPM * Chelsie Bradshaw LPN - 03/30/2024 1:19 PM EDT AMB ROOMING INTAKE FLOWSHEET DATA Patient presents with: Left Foot - Established Patient, Diabetic Foot Care Right Foot - Diabetic Foot Care Chelsie Bradshaw LPN documented in this encounterUniversity Hospitals Geauga [facility] Center05-30-2024 NoteHNO ID: [id number] Author: JASMINE MONTIEL RN Service: Obstetrics Author Type: Registered Nurse Type: Nursing Progress Note Filed: 03/05/2024 12:42 Note Text: Pt dressed with minimal assistance. Pt d/cd from PACU in stable condition.[facility]05-30-2024 Nurse Note* Jasmine Montiel RN - 03/05/2024 12:36 PM EDT Pt dressed with minimal assistance. Pt d/cd from PACU in stable condition. [facility]-30-[facility] Nurse Note* Jasmine Montiel RN - 03/05/2024 12:36 PM EDT Pt dressed with minimal assistance. Pt d/cd from PACU in stable condition. * Jasmine Montiel RN - 03/05/2024 12:[address] Kim at bedside to talk with pt. documented in this encounterUniversity Hospitals [facility]05-30-2024 NoteHNO ID: [id number] Author: JASMINE MONTIEL RN Service: Obstetrics Author Type: Registered Nurse Type: Nursing Progress Note Filed: 03/05/2024 12:02 Note Text: Dr. Kim at bedside to talk with pt.[facility] 03-05-2024 Nurse Note* Jasmine Montiel RN - 03/05/2024 12:[address] Kim at bedside to talk with pt. [facility]05-[facility] Hospital Discharge instructions* Discharge Instr - Other Orders* Josemanuel Kim MD - 03/05/2024 11:45 AM EDT First 24 Hours Following the Procedure Once the colonoscopic procedure has been completed, it is recommended that you be driven home by a friend or family member. If you were sedated for the procedure (which most people are), it's recommended that you have someone with you for the first 24 hours after you leave the endoscopy clinic or hospital. If you have nausea, your doctor may prescribe medications to help alleviate symptoms. During the first 24 hours, you should adhere to the following guidelines: Refrain from driving or operating heavy machinery until at least day after your procedure. Take any pain medications or stool softeners as prescribed. Drink plenty of liquids, including prune juice which can help soften stools. Avoid alcohol for the first 24 hours. Eat high-fiber foods or use an [id number] fiber supplement, if needed. Rest and avoid any heavy lifting or strenuous activity. Make sure you have someone with you. If you are single, ask a friend or family member if they can stay the night. If you're taking a daily aspirin to prevent heart troubles, you don't need to stop. Lower-dose aspirin is considered safe after a colonoscopy. When to Call Your Doctor Complications are uncommon but can occur. Call your doctor or clinic if you experience any of the following symptoms in the first 24 hours following your procedure: You have chills or fever. You experience rectal bleeding of more than a tablespoon. You experience swelling at the site where the IV needle was inserted. You experience severe abdominal pain or bloating (mild pain or bloating can be expected). You are vomiting. You are experiencing irregular heartbeats (arrhythmia). If you just don't feel right for any reason. Trust your intuition, and if you feel that something could be wrong, don't hesitate to call. After the First 24 Hours If polyps were removed during your colonoscopy, you will likely need to alter your activities for the next seven days. This includes not running, not lifting anything over five pounds, avoiding unnecessary travel, and stopping any blood thinners you may be taking (but first, this should be discussed with the physician who has been prescribing the blood thinners, as sometimes using these after a colonoscopy outweighs the risk of not using them). In short, be careful and treat your body gingerly. If you experience any of the following symptoms during the first week, call your doctor immediatelyor go to your nearest emergency room: You are unable to have a bowel movement or to urinate. You suddenly have trouble breathing. Your stools are black or bloody. Your vomit has blood or bile in it. Your abdomen becomes tender and hard. Any symptoms you have are getting worse. documented in this encounterUniversity Hospitals [facility]05-30-2024 History of Present illness Narrative* Miesha Brock APRN.DES - 03/05/2024 10:30 AM EDT H&P completed on 02/26/2024 by Josemanuel Kim MD . documented in this encounterUniversity Hospitals Geauga [facility] Center05-30-2024 NoteHNO ID: [id number] Author: MIESHA BROCK APRN.DES Service: ? Author Type: Nurse Practitioner Type: Progress Notes Filed: 03/05/2024 09:42 Note Text: HANDP completed on 02/26/2024 by Josemanuel Kim MD .[facility]05-30-2024 Surgery Surgical operation note* Operative Report - Josemanuel Kim MD - 03/05/2024 10:30 AM EDT OPERATIVE/PROCEDURE REPORT LOG ID: [id number] Surgery/Procedure Date: Incision/Procedure Start Time: 10:35 AM Incision Close/Procedure End Time: 11:41 AM Surgeon(s)/Proceduralist(s) and Medical Insurance Coder(s): Surgeon(s) and Role: * Kimberlee Gomez DO - Resident - Assisting * Josemanuel Kim MD - Proceduralist No Additional Staff Procedure(s): Colonoscopy with endoscopic mucosal resection of a cecal mass and multiple other polypectomies, Endo Clip placement Anesthesia: MAC Brief History: The patient is a pleasant 38-year-old male with a known history of of cecal mass seen on a prior colonoscopy but not addressed at that time. He has been dealing with refractory anemia and concern that this mass was causing a slow but ongoing blood loss was raised. For that reason we discussed going back for another colonoscopy to characterize this mass and see if it was resectable. Procedure Details: The patient was placed in the left lateral decubitus position. A digital rectal exam was performed and this was normal. The Olympus colonoscope was introduced into the rectum and advanced to the cecum. The procedure was fairly technically difficult due to looping in the sigmoid colon which was reduced with manual pressure. The cecum was identified by the appendiceal orifice andthe ileocecal valve. A large polyp was seen on the fold directly distal to the ileocecal valve. This was better appreciated on retroflexion. Preparation was made for EMR. We performed submucosal liftwith Eleview lifting agent and a sclerotherapy needle. The edges of the lesion were demarcated. Hotsnare was then used to remove the lesion in 3 pieces with complete removal confirmed. We placed an endoscopic clip to close a small area of exposed muscularis. Another nearby polyp which was 7 mm wasremoved with hot snare and these were sent in 1 specimen. The bowel preparation was good and the total withdrawal time was over 6 minutes. The scope was thenslowly withdrawn and the mucosal folds examined in detail. There were no abnormalities in the ascending colon and descending colon but in the transverse colon a 7 mm polyp was found and removed with hot snare in 1 piece and fully retrieved. In the sigmoid colon significant diverticulosis was appreciated with tortuosity of the colon and we also found a 7 mm polyp which was removed in 1 piece with hot snare and fully retrieved. In the rectum an 8 mm polyp was found and removed in 1 piece with hotsnare. This was also fully retrieved. All areas were noted to be hemostatic at the time of withdrawal. Retroflexion was performed and this showed no other pathology. The scope was then withdrawn and the patient tolerated the procedure well. Pre-Op/Pre-Procedure Diagnosis: Colon mass Post-Op/Post-Procedure Diagnosis: Same, colon polyps Specimens: See above EBL: None Complications: None Recommendations: no further colonoscopies indicated due to age I/primary surgeon/proceduralist performed the procedure with assistance. Josemanuel Kim MD SIGNATURE: Josemanuel Kim MD PATIENT NAME: Desiree Ames DATE: March 05, 2024 TIME: 11:48 AM PAGER/CONTACT #: [phone] [facility] Work Phone: [phone] Surgical operation note* Operative Report - Josemanuel Kim MD - 03/05/2024 10:30 AM EDT OPERATIVE/PROCEDURE REPORT LOG ID: [id number] Surgery/Procedure Date: Incision/Procedure Start Time: 10:35 AM Incision Close/Procedure End Time: 11:41 AM Surgeon(s)/Proceduralist(s) and Medical Insurance Coder(s): Surgeon(s) and Role: * Kimberlee Gomez DO - Resident - Assisting * Josemanuel Kim MD - Proceduralist No Additional Staff Procedure(s): Colonoscopy with endoscopic mucosal resection of a cecal mass and multiple other polypectomies, Endo Clip placement Anesthesia: MAC Brief History: The patient is a pleasant 38-year-old male with a known history of of cecal mass seen on a prior colonoscopy but not addressed at that time. He has been dealing with refractory anemia and concern that this mass was causing a slow but ongoing blood loss was raised. For that reason we discussed going back for another colonoscopy to characterize this mass and see if it was resectable. Procedure Details: The patient was placed in the left lateral decubitus position. A digital rectal exam was performed and this was normal. The Olympus colonoscope was introduced into the rectum and advanced to the cecum. The procedure was fairly technically difficult due to looping in the sigmoid colon which was reduced with manual pressure. The cecum was identified by the appendiceal orifice andthe ileocecal valve. A large polyp was seen on the fold directly distal to the ileocecal valve. This was better appreciated on retroflexion. Preparation was made for EMR. We performed submucosal liftwith Eleview lifting agent and a sclerotherapy needle. The edges of the lesion were demarcated. Hotsnare was then used to remove the lesion in 3 pieces with complete removal confirmed. We placed an endoscopic clip to close a small area of exposed muscularis. Another nearby polyp which was 7 mm wasremoved with hot snare and these were sent in 1 specimen. The bowel preparation was good and the total withdrawal time was over 6 minutes. The scope was thenslowly withdrawn and the mucosal folds examined in detail. There were no abnormalities in the ascending colon and descending colon but in the transverse colon a 7 mm polyp was found and removed with hot snare in 1 piece and fully retrieved. In the sigmoid colon significant diverticulosis was appreciated with tortuosity of the colon and we also found a 7 mm polyp which was removed in 1 piece with hot snare and fully retrieved. In the rectum an 8 mm polyp was found and removed in 1 piece with hotsnare. This was also fully retrieved. All areas were noted to be hemostatic at the time of withdrawal. Retroflexion was performed and this showed no other pathology. The scope was then withdrawn and the patient tolerated the procedure well. Pre-Op/Pre-Procedure Diagnosis: Colon mass Post-Op/Post-Procedure Diagnosis: Same, colon polyps Specimens: See above EBL: None Complications: None Recommendations: no further colonoscopies indicated due to age I/primary surgeon/proceduralist performed the procedure with assistance. Josemanuel Kim MD SIGNATURE: Josemanuel Kim MD PATIENT NAME: Desiree Ames DATE: March 05, 2024 TIME: 11:48 AM PAGER/CONTACT #: [phone] documented in this encounterUniversity Hospitals [facility]05-22-2024 Telephone encounter Note * Telephone Encounter - Nancy Mckeon - 02/26/2024 2:18 PM EDT Nephrology Clearance has been faxed to 's office. Nancy Mckeon [facility]05-22-2024 Miscellaneous Notes* Telephone Encounter - Nancy Mckeon - 02/26/2024 2:18 PM EDT Nephrology Clearance has been faxed to 's office. Nancy Mckeon documented in this encounterUniversity Hospitals Ge[facility] Center05-22-2024 Telephone encounter Note * Telephone Encounter - Nancy Mckeon - 02/26/2024 1:26 PM EDT Surgery Checklist Type: COLONOSCOPY Admission Type: outpatient Anesthesia: MAC Date: 03/05/24 Arrival Time: 9:30 AM Surgery Time: 10:30 AM Location: [facility] Prep given at appointment. Nancy Mckeon [facility]05-22-2024 Miscellaneous Notes* Telephone Encounter - Nancy Mckeon - 02/26/2024 1:26 PM EDT Surgery Checklist Type: COLONOSCOPY Admission Type: outpatient Anesthesia: MAC Date: 03/05/24 Arrival Time: 9:30 AM Surgery Time: 10:30 AM Location: [facility] Colonoscopy Prep given at appointment. Nancy Mckeon documented in this encounterUniversity Hospitals Ge[facility]05-22-2024 Instructions* Patient Instructions* Josemanuel Kim MD - 02/26/2024 11:07 AM EDT Images from the original note were not included. What is a colonoscopy? A colonoscopy is an outpatient procedure in which the inside of the large intestine (colon and rectum) is examined. A colonoscopy is commonly used to evaluate gastrointestinal symptoms, such as rectal and intestinal bleeding, abdominal pain, or changes in bowel habits. Colonoscopies are also performed in individuals without symptoms to check for colorectal polyps or cancer. A screening colonoscopy is recommended for anyone 50 years of age and older, and for anyone with parents, siblings, or children with a history of colorectal cancer or polyps. What happens before a colonoscopy? To have a successful colonoscopy, your bowel must be empty so that your doctor can clearly view thecolon. To do this, it is very important to read and follow all of the instructions given to you at least 2 weeks BEFORE your exam. If your bowel is not empty, your colonoscopy will not be successful and may have to be repeated. If you feel nauseated or vomit while taking the bowel preparation, wait 30 minutes before drinking more fluid and start with small sips of solution. Some activity (such as walking) or a few soda crackers may help decrease the nausea you are feeling. If the nausea persists, call your doctor. You may experience skin irritation around the anus due to the passage of liquid stools. To prevent and treat skin irritation, you should: Apply vaseline or Desitin ointment to the skin around the anus before drinking the bowel preparation medications. These products can be purchased at any drug store. Wipe the skin after each bowel movement with disposable wet wipes instead of toilet paper. These are found in the toilet paper area of the store. Sit in a bathtub filled with warm water for 10 to 15 minutes after you finish passing a stool. After soaking, blot the skin dry with a soft cloth. Then apply vaseline or Desitin ointment to the anal area, and place a cotton ball just outside your anus to absorb leaking fluid. What happens during a colonoscopy During a colonoscopy, an experienced doctor uses a colonoscope (a long, flexible instrument about 1/2 inch in diameter) to view the lining of the colon. The colonoscope is inserted into the rectum and advanced through the large intestine. If necessary during a colonoscopy, small amounts of tissue can be removed for analysis (a biopsy) and polyps can be identified and entirely removed. In many cases, a colonoscopy allows accurate diagnosis and treatment of colorectal problems without the need for a major operation. You are asked to wear a hospital gown and an IV will be started. You are given a pain reliever and a sedative intravenously (in your vein). You will feel relaxed and somewhat drowsy. You will lie on your left side, with your knees drawn up towards your chest. A small amount of air is used to expand the colon so the physician can see the colon chacko. You may feel mild cramping during the procedure. Cramping can be reduced by taking slow, deep breaths. The colonoscope is slowly withdrawn while the lining of your bowel is carefully examined. The procedure lasts from 30 minutes to 1 hour. What happens after a colonoscopy? You will stay in a recovery room for observation until you are ready for discharge. You may feel some cramping or a sensation of having gas, but this quickly passes. If sedation has been given, a responsible family member or friend must drive you home. The procedure typically lasts from 30 minutes to 1 hour. Avoid alcohol, driving, and operating machinery for 24 hours following the procedure. Unless otherwise instructed, you may immediately return to your normal diet. We recommend you wait until the day after your procedure to resume normal activities. If polyps were removed or a biopsy was taken, the doctor performing your colonoscopy will tell you when it is safe to resume taking your blood thinners. If a biopsy was taken or a polyp was removed, you may notice light rectal bleeding for one to two days after the procedure. If you have a large amount of rectal bleeding, high or persistent fevers, or severe abdominal pain within the next 2 weeks, go to your local emergency room and call the physician who performed your exam. References [employer]. Colonoscopy Accessed 10/26/2014. The [employer]. Colonoscopy Accessed 10/26/2014. Copyright 0277-7121 The [facility]. All rights reserved documented in this encounterUniversity Hospitals Geauga [facility] Center05-22-2024 NoteHNO ID: [id number] Author: JOSEMANUEL KIM MD Service: ? Author Type: Physician Type: Progress Notes Filed: 02/26/2024 11:14 Note Text: Josemanuel Kim M.D. Colon AND Rectal Surgery [address] [facility], [address] [place] [id number] SUBJECTIVE Desiree Ames is a 88 year old White male with anemia and history of colon mass HPI The patient is a pleasant 88-year-old male who underwent a colonoscopy 2 years ago during which she was found to have a number of colon polyps as well as an ascending colon mass. Tattoo was placed at this for concern that it was not resectable endoscopically. Biopsies were taken but we do not have those biopsy results present. The mass was noncircumferential and non obstructing He has had longstanding chronic kidney disease and is concerned that ever since the colonoscopy this has been worse. He also has longstanding anemia which has been difficult to control. Last labs in our system are from November and show a hemoglobin of 9 this was done after a vascular surgery. Going going back for several years he was 12.8 in 2021. Surgical history is notable for an appendectomy, open AAA repair, and inguinal hernia repair with mesh. He also makes mention of possible abdominal mesh placement at some point in time though they are unsure of this. Review of Systems Constitutional: Negative for chills, fever and weight loss. HENT: Positive for hearing loss and sore throat. Negative for congestion. Eyes: Negative for blurred vision. Respiratory: Positive for cough, shortness of breath and wheezing. Negative for stridor. Cardiovascular: Negative for chest pain and palpitations. Gastrointestinal: Positive for constipation (off/on). Negative for abdominal pain, blood in stool, diarrhea, heartburn, melena, nausea and vomiting. Genitourinary: Positive for frequency (self -catherized once a day at bedtime). Negative for dysuria and urgency. Musculoskeletal: Positive for back pain (Lower back). Negative for joint pain and neck pain. Skin: Positive for rash (around groin area). Negative for itching. Neurological: Negative for tingling and headaches. Endo/Heme/Allergies: Negative for environmental allergies. Bruises/bleeds easily. Psychiatric/Behavioral: Positive for depression. The patient is not nervous/anxious. 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-iliac atherosclerosis (HCC) ([facility]) 08/21/2023 Atherosclerosis of [place] artery of both lower extremities with intermittent claudication ([facility]) 08/21/2023 Atherosclerosis of [place] artery of left lower extremity with rest pain ([facility]) 10/18/2023 Benign neoplasm of colon Calculus of ureter 06/12/2005 CHRONIC AIRWAY OBSTRUCTION NEC 11/05/2005 Chronic midline low back pain without sciatica 04/10/2016 Chronic obstructive pulmonary disease with acute exacerbation ([facility]) 11/05/2005 Chronic rhinitis 12/18/2007 On allergy shots weekly c/o Dr. Hilliard. Coronary atherosclerosis of unspecified type of vessel, [place] or graft 06/13/2005 Diverticulitis of colon (without [...] 08/21/2023 Superficial occlusion of femoral artery (HCC) Symptom of leg swelling 12/12/2023 Tobacco use disorder 06/12/2005 Type II or unspecified type diabetes mellitus without mention of complication, not stated as uncontrolled 01/24/2011 Unspecified essential hypertension 06/12/2005 Venous insufficiency (chronic) (peripheral) 05/11/2015 PAST SURGICAL HISTORY Procedure Laterality Date APPENDECTOMY DONE W/OTHR MAJOR SURGERY 1998 With inguinal hernia repair [facility] INCL FLUOR GDNCE DX W/CELL WASHG SPX 09/12/2007 Bronchoscopy COLONOSCOPY FLX DX W/COLLJ SPEC WHEN PFRMD 01/2003 Colonoscopy COLONOSCOPY FLX DX W/COLLJ SPEC WHEN PFRMD 02/2005 Colonoscopy COLONOSCOPY FLX DX W/COLLJ SPEC WHEN PFRMD 12/05/2015 Colonoscopy COLSC FLX W/RMVL OF TUMOR POLYP LESION SNARE TQ 08/25/2010 Distal transverse polyp/diverticular dz CYSTOURETHROSCOPY 06/14/2004 Cystoscopy DIR RPR ANEURYSM ABDOMINAL AOR (more content not included)...[facility]05-22-2024 History of Present illness Narrative* Josemanuel Kim MD - 02/26/2024 10:13 AM EDT Images from the original note were not included. Josemanuel Kim M.D. Colon & Rectal Surgery [address] [facility], [address] [place] [address] SUBJECTIVE Desiree Ames is a 88 year old White male with anemia and history of colon mass HPI The patient is a pleasant 88-year-old male who underwent a colonoscopy 2 years ago during which shewas found to have a number of colon polyps as well as an ascending colon mass. Tattoo was placed atthis for concern that it was not resectable endoscopically. Biopsies were taken but we do not have those biopsy results present. The mass was noncircumferential and non obstructing He has had longstanding chronic kidney disease and is concerned that ever since the colonoscopy this has been worse. He also has longstanding anemia which has been difficult to control. Last labs in our system are from November and show a hemoglobin of 9 this was done after a vascular surgery. Going going back for several years he was 12.8 in 2021. Surgical history is notable for an appendectomy, open AAA repair, and inguinal hernia repair with mesh. He also makes mention of possible abdominal mesh placement at some point in time though they are unsure of this. Review of Systems Constitutional: Negative for chills, fever and weight loss. HENT: Positive for hearing loss and sore throat. Negative for congestion. Eyes: Negative for blurred vision. Respiratory: Positive for cough, shortness of breath and wheezing. Negative for stridor. Cardiovascular: Negative for chest pain and palpitations. Gastrointestinal: Positive for constipation (off/on). Negative for abdominal pain, blood in stool, diarrhea, heartburn, melena, nausea and vomiting. Genitourinary: Positive for frequency (self -catherized once a day at bedtime). Negative for dysuria and urgency. Musculoskeletal: Positive for back pain (Lower back). Negative for joint pain and neck pain. Skin: Positive for rash (around groin area). Negative for itching. Neurological: Negative for tingling and headaches. Endo/Heme/Allergies: Negative for environmental allergies. Bruises/bleeds easily. Psychiatric/Behavioral: Positive for depression. The patient is not nervous/anxious. 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 Hilliard. Coronary atherosclerosis of unspecified type of vessel, [place] or graft 06/13/2005 Diverticulitis of colon (without [...] 08/21/2023 Superficial occlusion of femoral artery (HCC) Symptom of leg swelling 12/12/2023 Tobacco use disorder 06/12/2005 Type II or unspecified type diabetes mellitus without mention of complication, not stated as uncontrolled 01/24/2011 Unspecified essential hypertension 06/12/2005 Venous insufficiency (chronic) (peripheral) 05/11/2015 PAST SURGICAL HISTORY Procedure Laterality Date APPENDECTOMY DONE W/OTHR MAJOR SURGERY 1998 With inguinal hernia repair [facility] INCL FLUOR GDNCE DX W/CELL WASHG [...] percut, Prox. RCA. TRANSURETHRAL ELEC-SURG PROSTATECTOM 03/07/2022 Social History Tobacco Use Smoking status: Former Packs/day: 0.50 Years: 50.00 Additional pack years: 0.00 Total pack years: 25.00 Types: Cigarettes, Cigars Quit date: 02/05/2008 Years since quittin.0 Smokeless tobacco: Never Vaping Use Vaping Use: Never used Substance Use Topics Alcohol use: Yes Comment: Rare Drug use: No FAMILY HISTORY Problem Relation Age of Onset Alzheimer's Disease Mother age 92 Arthritis Mother hip replacement Diabetes Father alive at 93 Coronary Artery Disease Father Stroke Father Hypertension Father Prostate Cancer Father Cataract Father Hypertension Brother Heart Brother valve replacement Lipids Brother Prostate Cancer Son 57 seed implants Aneurysm No Family History The ROS, medical, surgical, family, and social history were reviewed by Josemanuel Kim MD ALLERGIES Allergen Reactions Levaquin [Levofloxa* Hives Felodipine Rash Pletal [Cilostazol] Itching Sulfa (Sulfonamide * Itching Current Outpatient Medications Medication Sig insulin lispro (HUMALOG KWIKPEN INSULIN) 100 unit/mL Inject 15 Units subcutaneously three times a day before meals. ELIQUIS 2.5 mg tab(s) Take 1 tablet by mouth every 12 hours. budesonide-formoterol (SYMBICORT) 160-4.5 mcg/actuation inhaler inhale2 puffs BY MOUTH twice a day;administer with spacer, rinse mouth after each use] FEROSUL 325 mg (65 mg iron) tablet Take 1 tablet by mouth every other day. senna-docusate (SENNA-S) 8.6-50 mg per tablet Take 1 tablet by mouth two times a day. SEMGLEE,INSULIN GLARG-YFGN,PEN 100 unit/mL (3 mL) insulin pen UNIFINE PENTIPS 31 gauge x 1/4 ndle once daily. insulin glargine (LANTUS SOLOSTAR U-100 INSULIN) 100 unit/mL (3 mL) Inject 22 Units subcutaneously once daily. AMMONIUM LACTATE TOPICAL Apply to affected area as needed. Lotion spironolactone (ALDACTONE) 25 mg tablet Take 25 mg by mouth as needed. ipratropium-albuterol (DUONEB) 0.5 mg-3 mg(2.5 mg base)/3 mL nebu 4 TIMES DAILY NEEDED furosemide (LASIX) 40 mg tablet Take 40 mg by mouth once daily. carvedilol (COREG) 25 mg tablet Take 1 tablet by mouth twice daily. Dr. Pierre. hydrALAZINE (APRESOLINE) 100 mg tablet Take 100 mg by mouth two times a day. Dr. Pierre. rOPINIRole (REQUIP) 0.5 mg tablet Take 1-3 tablets by mouth at bedtime as needed. Dr. Rivero acetaminophen (TYLENOL) 500 mg tablet Take 500 mg by mouth every 6 hours as needed. albuterol HFA (PROVENTIL HFA, [...] 5 minutes as needed for Chest Pain. azithromycin (ZITHROMAX) 250 mg tablet predniSONE (DELTASONE) 20 mg tablet meclizine (ANTIVERT) 25 mg tab meclizine hydrochloride 25 mg oral tablet (4 sources) Antiemetic Start: 09-13-2023 (Patient not taking: Reported on 11/25/2023) clopidogrel (PLAVIX) 75 mg tablet Take 1 tablet by mouth once daily. (Patient not taking: Reported on 11/25/2023) amLODIPine (NORVASC) 10 mg tablet Take 10 mg by mouth once daily. dapagliflozin propanediol (FARXIGA) 10 mg tablet Take 10 mg by mouth daily with breakfast. (Patientnot taking: Reported on 11/25/2023) metFORMIN (GLUCOPHAGE) 850 mg tablet Take 1 tablet by mouth twice daily with meals. (Patient not taking: Reported on 12/12/2023) Aspirin 81 mg ORAL Tab Take 1 tablet by mouth once daily. Take with food. No current facility-administered medications for this visit. OBJECTIVE BP 117/72 (BP Site: Left Arm, BP Position: Sitting, BP Cuff Size: Regular Adult) Pulse 72 Ht 172.7 cm (5' 8) Wt 86.2 kg (190 lb) BMI 28.89 kg/m BMI 28.89 kg/(m^2) Physical Exam Constitutional: General: He is not in acute distress. Appearance: Normal appearance. He is not ill-appearing. Cardiovascular: Rate and Rhythm: Normal rate and regular rhythm. Heart sounds: No murmur heard. No friction rub. No gallop. Pulmonary: Effort: Pulmonary effort is normal. No respiratory distress. Breath sounds: Normal breath sounds. No wheezing or rales. Abdominal: General: There is no distension. Palpations: Abdomen is soft. There is no hepatomegaly. Tenderness: There is no abdominal tenderness. Musculoskeletal: General: No deformity. Normal range of motion. Skin: General: Skin is warm and dry. Findings: No rash. Neurological: Mental Status: He is alert and oriented to person, place, and time. Motor: Weakness present. Gait: Gait abnormal (walks with walker). Psychiatric: Mood and Affect: Mood normal. Judgment: Judgment normal. Hemoglobin (g/dL) Date Value 11/14/2023 9.0 12/16/2020 13.2 Hematocrit (%) Date Value 11/14/2023 29.5 12/16/2020 40.3 WBC (k/uL) Date Value 11/14/2023 11.23 12/16/2020 8.60 Platelet Count (k/uL) Date Value 11/14/2023 183 12/16/2020 299 Creatinine Date Value Ref Range Status 11/14/2023 1.90 (H) 0.73 - 1.22 mg/dL Final AST Date Value Ref Range Status 01/24/2022 29 14 - 40 U/L Final ALT Date Value Ref Range Status 01/24/2022 24 10 - 54 U/L Final Bilirubin, Total (mg/dL) Date Value 01/24/2022 0.3 ABO/RH(D) (no units) Date Value 08/05/2018 A NEGATIVE Antibody Screen (no units) Date Value 11/05/2023 Negative WBC (k/uL) Date Value 11/14/2023 11.23 (H) RBC (m/uL) Date Value 11/14/2023 3.41 (L) %DIG,%DBS Plan ASSESSMENT/PLAN: 1. Colonic mass - ICD9: 569.89, ICD10: K63.89 This was seen several years ago and at that point biopsies were taken and I would like to know whatthose showed. He continues to be anemic and this is a likely culprit for his anemia although the last blood draws we have in our system were after a surgery, possibly explaining some of the anemia. Still I think it is worthwhile to do a new colonoscopy and evaluate the mass and whether it is endoscopically resectable. Will set this up in the near future. Follow up: Return for Colonoscopy. Josemanuel Kim M.D. Please Note: This office note has been created using [employer], a speech recognition software program, and may contain errors including punctuation, grammar, spelling, gender, and inappropriate words or phrases that pertain to the sytem. documented in this encounterUniversity [facility]04-24-[facility]24 Discharge summary Author Fernandez Santana [facility] January 29, 2024 12:59pm Note Date/Time January 29, 2024 12: 54pm [facility] Medical Records Department [address] [place] [address] Discharge Summary 01/29/24 1249 MR#: [id number] Acct: [id number] Name: DESIREE AMES Rep #:[id number] : [id number] From: Fernandez Valentine PCP: Dr. Riaz Garrison MD Status:ADM IN Location: [place] [id number] Providers Date of Admission: 01/26/24 Date of Discharge: 01/29/24 Primary Care Physician: Dr. Riaz Garrison MD Consultations 01/28/24 12:43 Consult: Welding Manager / Pulmonary Medicine Routine Consulting Provider: Intensivists/Pulmonary Med Reason for Consult: copd exa EMERGENT Consult: No Notified: Yes Date Notified: 01/28/24 Time Notified: 12:43 Method of Notification: Verbal 01/28/24 12:44 Consult: Nephrology Routine Consulting Provider: Jonny Abebe Reason for Consult: ckd stage 4 EMERGENT Consult: No Notified: Yes Date Notified: 01/28/24 Time Notified: 12:44 Method of Notification: Text Reason For Visit: SHORTNESS OF BREATH Diagnosis Discharge Diagnosis (1) Chronic kidney disease: Status: Chronic Code(s): N18.9 - Chronic kidney disease, unspecified Qualifiers: Chronic kidney disease stage: stage 4 (severe) Qualified Code(s): N18.4- Chronic kidney disease, stage 4 (severe) (2) Bilateral edema of lower extremity: Status: Acute Code(s): R60.0 - Localized edema Plan 88-year-old man with history of COPD, A-fib with RVR, HFrEF, prior coronary artery disease, MARIXA presents to the ED with progressive worsening shortness of breath and decline in his functional status, worsening for last 2 days. Chronicdyspnea on exertion for several years along with chronic cough the likely reasonfor his presentation is multifactorial. # Acute on chronic HFpEF: 2D echo from 422 reviewed. EF 55%, no RWMA. Normal RV size and systolic function. LA mildly enlarged. Trivial MR. -IV Lasix 40 mg twice daily with hemodynamic monitoring and kidney function. Furosemide and spironolactone. Heart failure core measures including intake andoutput, fluid restriction less than 1500 mL, daily weight monitoring, kidney andelectrolytes monitoring. 01/28: Patient shortness of breath, dyspnea has improved. Leg swelling also improved. Patient discharged on furosemide 40 mg twice daily. Fluid restriction. Follow-up with cardiology. CKD stage IV: Creatinine is between 2.2-2.4 with estimated creatinine clearance around 26 or per minute. On baseline. 01/27: Slight increase in creatinine from 2.2-2.39. IV furosemide changed to oral furosemide. Follows [facility] took a dose already. Patient has appointment with nephrology tomorrow. Consulted ordered as per patient's request 01/28: Nephrology consulted revised and appreciated. CKD stage IV, creatinine baseline around 2.4. No obstructive symptoms.Metolazone 5 mg 1 dose given by lasting room machine operator. #COPD exacerbation: Patient is Sterets that he has increasing shortness of breath/dyspnea on exertion along with increase in severity and frequency of cough and sputum production therefore acute COPD exacerbation -DuoNeb scheduled. Prednisone ordered as patient with hyperglycemia. Continue baseline inhaler 01/27: Overall improvement in shortness of breath but he still has dyspnea on mild exertion. Patient and his wish to see a grants specialist. Used to follow Dr. Rivero before he left. Discussed with Dr. Painter and consult requested. 01/28: Patient was evaluated by grants specialist Dr. Painter. No specific recommendation but discharged on tapering dose of prednisone. Patient had inhaler and a spacer at home. Continue follow-up in pulmonary clinic. Mild hypoxia. Home oxygen qualification test ordered prior to discharge - PT/OT and Case management consult #Hypertension: -Continue tab amlodipine 10 mg daily -Hydralazine 100 mg twice daily # Afib: Presently rate is well controlled -Continue apixaban 2.5 mg twice daily -Type carvedilol 25 mg twice daily # Prior CAD: Last stress test was negative for ischemia -Aspirin 81 mg daily -Atorvastatin 40 mg daily -Continue isosorbide mononitrate 30 mg # MARIXA: Continue bipap at home settings, consider outpatient reevaluation after discharge #Type 2 diabetes: -Continue insulin glargine 18 units subcu in the a.m. -Close sugar monitoring -Insulin sliding scale 01/27 glucose levels are high at 250, scheduled Lantus and Humalog insulin dose increased accordingly. #GERD continue pantoprazole daily Constipation: MiraLAX and senna S started # DVT: Moderate to high risk: On apixaban. Discharge medication reconciliation done. Discharge follow-up instructions completed. Discharge process discussed with the patient and all questions wereanswered to patient's satisfaction. Follow with PCP in 1 to 2 weeks Total time spent, exact 35 minutes on discharge meds reconciliation, examination, coordination of care with nurses and ancillary staff, review of imaging and blood test and discussion with the patient on follow-up instructions. Medications at Discharge Home Medications ammonium lactate 12 % lotion 1 applic topical QD-BID PRN dry skin 02/06/18 handicap placcard #1 ea 09/28/19 ascorbate calcium (vitamin C) 500 mg tablet 500 mg PO DAILY Bone strength 05/03/20 coenzyme Q10 100 mg capsule (Co Q-10) 100 mg PO DAILY 05/03/20 cholecalciferol (vitamin D3) 100 mcg (4,000 unit) tablet 100 mcg PO DAILY 11/03/20 spacer #1 ea 01/12/21 aspirin 81 mg chewable tablet 81 mg PO QHS heart health 05/30/22 nitroglycerin 0.4 mg sublingual tablet (Nitrostat) 0.4 mg sublingual Q5-15M PRN chest pain #25 tabs 06/08/22 ipratropium 0.5 mg-albuterol 3 mg (2.5 mg base)/3 mL nebulization soln 3 ml inhalation 4X/DAY PRN PRN shortness of breath or wheezing #90 mL 08/03/22 montelukast 10 mg tablet 10 mg PO QHS Respiratory #90 tabs 04/24/23 atorvastatin 40 mg tablet 40 mg PO QODAY cholesterol #45 tabs 05/23/23 carvedilol 25 mg tablet 25 mg PO BID #180 tabs 05/23/23 lancets #180 ea 07/18/23 amlodipine 10 mg tablet 10 mg PO DAILY This is a dose increase #90 tabs 08/28/23 blood sugar diagnostic (Palm Ultra Test strips) #180 ea 09/16/23 budesonide-formoterol HFA 160 mcg-4.5 mcg/actuation aerosol inhaler (Symbicort) 2 puff inhalation BID #1 ea 10/23/23 ipratropium bromide 42 mcg (0.06 %) nasal spray 2 spray intranasal TID-QID PRN allergy symptoms #15 mL 10/23/23 pantoprazole 40 mg tablet,delayed release 40 mg PO DAILY reflux #90 tabs 11/19/23 ipratropium bromide 0.02 % solution for inhalation 2.5 ml inhalation Q6H PRN shortness of breath or wheezing #150 mL 12/06/23 apixaban 2.5 mg tablet (Eliquis) 2.5 mg PO BID #90 tabs 12/12/23 ferrous sulfate 325 mg (65 mg iron) tablet 325 mg PO Q OTHER DAY #30 tabs 12/16/23 loratadine 10 mg tablet 10 mg PO DAILY #90 tabs 12/16/23 hydralazine 100 mg tablet 100 mg PO BID #180 tabs 12/26/23 albuterol sulfate 90 mcg/actuation aerosol inhaler (Ventolin HFA) 2 inh inhalation Q4H PRN shortness of breath or wheezing #18 grams 01/01/24 ipratropium 0.5 mg-albuterol 3 mg (2.5 mg base)/3 mL nebulization soln 3 ml inhalation Q4H PRN PRN SOB &/OR WHEEZING #180 mL 01/01/24 magnesium citrate (OneLAX Magnesium Citrate oral solution) 300 ml PO ONCE #296 mL 01/02/24 pen needle, diabetic 31 gauge x 1/4 (1st Tier Unifine Pentips) #100 ea 01/15/24 isosorbide mononitrate 30 mg tablet,extended release 24 hr 30 mg PO DAILY #90 tabs 01/22/24 furosemide 40 mg tablet 40 mg PO BIDLX 30 days #60 tabs 01/29/24 insulin glargine 100 unit/mL (3 mL) subcutaneous pen (Lantus Solostar U-100 Insulin) 22 unit (0.22 mL) subcut QAM #3 mL 01/29/24 insulin lispro 100 unit/mL subcutaneous pen (Humalog KwikPen (U-100) Insulin) 15unit (0.15 mL) subcut TIDAC #15 mL 01/29/24 prednisone 10 mg tablet 10 mg PO DAILY #30 tabs 01/29/24 sennosides 8.6 mg-docusate sodium 50 mg tablet (Stool Softener-Stimulant Laxative) 2 tab PO BID #0 tabs 01/29/24 Physical Exam Narrative Seen and examined. History of heart failure and COPD. Not on home oxygen. Shortness of breath improved. Patient walked with physical therapy. Still has leg swelling and metolazone 5 mg given by lasting room machine operator. Discussed with . Was evaluated by lasting room machine operator and grants specialist. Patient was not approved for SNF/tissue therefore going home. After right lower extremity stenting, he was not doing much physical work therefore gained weight/deconditioning and easily short of breath. Used to follow Dr. Rivero. 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 Physical exam General: Alert, Oriented x3, Cooperative HEENT: Atraumatic, PERRLA, EOMI, Normocephalic Oral: No Gingival or Mucosal Lesions/ Ulcerations Neck: Supple, No JVD, Negative Carotid Bruits Chest wall/Lungs: Air entry severely diminished. No wheezing. Mild fine expiratory rhonchi. Cardiovascular: Irregular rhythm, S1-S2 regular. No M/G/R, stent in left leg infiltrate in 11/30 Abdomen: Bowel Sounds Present, Soft, Non Tender, Non-Distended : No dysuria. No renal angle tenderness. No suprapubic tenderness. Extremities: Bilateral below-knee pitting edema, 2+. Capillary Refill Less than3 Seconds Skin: No rashes, No breakdown Musculoskeletal: No Tenderness to Palpation of Joints or Extremities Neurological: Cranial nerves II-XII grossly intact, DTR 2+/4. No acute focal neurological deficit. Psych/Mental Status: Flat affect Weight / BMI Weight Weight: 213 lb Body Mass Index (BMI) 33.2 ABG / Lab / Microbiology Data 01/29/24 07:24 01/29/24 07:24 Laboratory: Laboratory Results - last 24 hr 01/28/24 16:26: POC Glucose 301 H 01/28/24 20:30: POC Glucose 329 H 01/29/24 02:11: POC Glucose 186 H 01/29/24 07:24: WBC 6.9, RBC 2.89 L, Hgb 7.2 L, Hct 24.9 L, MCV 86.2, MCH 24.9 L, MCHC 28.9 L, RDW Std Deviation 50.4 H, RDW Coeff of Justin 16.5 H, Plt Count 301,MPV 11.1, Immature Gran % (Auto) 0.300, Neut % (Auto) 73.3 H, Lymph % (Auto) 17.2 L, [place] % (Auto) 8.7, Eos % (Auto) 0.4, Baso % (Auto) 0.1, Absolute Neuts (auto) 5.1, Absolute Lymphs (auto) 1.19, Nucleated RBC % 0, Retic Count 3.04 H, Immature Retic Fraction 35.50 H, Retic Hgb Equivalent 23.8 L, Sodium 135 L, Potassium 4.0, Chloride 99, Carbon Dioxide 29.0, Anion Gap 7, BUN 50 H, Creatinine 2.48 H, Estim Creat Clear Calc 24.10, Est GFR (MDRD) Af Amer 32 L, Est GFR (MDRD) Non-Af 26 L, BUN/Creatinine Ratio 20.2 H, Glucose 166 H, Calcium 9.1, Iron 9 L, TIBC 308, Iron Saturation 2.9 L, Ferritin 24 L 01/29/24 07:30: POC Glucose 177 H 01/29/24 11:17: POC Glucose 169 H D/C Instructions Discharge Diet: Low fat / Low cholesterol, 6 Cup Fluid Restriction and 2000 mg Sodium Diet Weight Bearing Status: Weight bearing as tolerated Call your doctor if you observe: Fever of 101 or Higher, Coldness, Increased Pain, Numbness or Tingling, Change in Color, Inability to urinate, Inability to have a bowel movement, Shortness of breath, Dizziness, Fainting spells, Swellingin the ankles, Chest pain, Prolonged hiccupping, Increased palpitations (irregular heartbeat) and Calf discomfort When: IN 2 WEEKS Meaningful Use Info Meaningful Use Meaningful Use Diagnoses (Choose all that apply): None applicable Ischemic Stroke Statin Dosing Therapy Reference: STATIN DOSE THERAPY REFERENCE: * Patients > 75 years receive moderate or high dose statin therapy. * Patients 75 years or YOUNGER should receive HIGH intensity statin dose unless contraindicated. You will be required to document reason for non-treatment if statin daily dose does not meet guidelines. HIGH DOSE STATIN THERAPY DAILY Atorvastatin > than or = to 40 mg Rosuvastatin > than or = to 20 mg Amlodipine + Atorvastatin > than or = to 2.5/40 mg Ezetimibe + Simvastatin 10/80 mg Simvastatin 80mg Discharge Plan Admission Admit Date/Time: 01/26/24 16:19 Primary Reason for Your Visit: Acute heart failure and COPD exacerbation Attending Provider: Fernandez Santana Primary Care Provider: Riaz Garrison Consulting Providers: Hansel Gillis; Jonny Abebe Discharge Orders/Prescriptions Prescriptions: New sennosides-docusate sodium [Stool Softener-Stimulant Laxat] 8.6-50 mg Tablet 2 tab PO BID Qty: 0 0RF insulin lispro [Humalog KwikPen Insulin] 100 unit/mL Insulin Pen 15 unit subcut TIDAC Qty: 15 2RF Rx Instructions: Hold if glucose less than 130 mg/dl furosemide 40 mg Tablet 40 mg PO BIDLX 30 Days Qty: 60 1RF Rx Instructions: Hold for NARENDRA prednisone 10 mg tablet 10 mg PO DAILY Qty: 30 0RF Rx Instructions: 40 mg for 3 days 30 mg for 3 days, 20 mg for 3 days,and 10 mg for 3 days Continued ammonium lactate 12 % lotion 1 applic TOPICAL QD-BID PRN (Reason: dry skin ) (DME) handicap placcard Qty: 1 0RF Rx Instructions: Lifetime: debility coenzyme Q10 [Co Q-10] 100 mg capsule 100 mg PO DAILY ascorbate calcium (vitamin C) 500 mg tablet 500 mg PO DAILY cholecalciferol (vitamin D3) 100 mcg (4,000 unit) tablet 100 mcg (4,000 unit) tablet 100 mcg PO DAILY (DME) spacer See Rx Instructions .ROUTE .MEDSUPPLY Qty: 1 0RF Rx Instructions: As directed ipratropium bromide 42 mcg (0.06 %) spray,non-aerosol 2 spray INTRANASAL TID-QID PRN (Reason: allergy symptoms) Qty: 15 6RF Rx Instructions: nasal drip - administer into each nostril; wait 30 seconds between sprays budesonide-formoterol [Symbicort] 160-4.5 mcg/actuation HFA aerosol inhaler 2 puff inhalation BID Qty: 1 3RF Rx Instructions: administer with spacer, rinse mouth after each use (DME) OneTouch Ultra Test Strip See Rx Instructions .Route Qty: 180 1RF Rx Instructions: Check twice a day. (DME) lancets Misc See Rx Instructions .Route Qty: 180 1RF Rx Instructions: twice daily hydralazine 100 mg tablet 100 mg PO BID Qty: 180 3RF Eliquis 2.5 mg tablet 2.5 mg PO BID Qty: 90 1RF ferrous sulfate 325 mg (65 mg iron) tablet 325 mg PO Q OTHER DAY Qty: 30 1RF magnesium citrate [OneLAX Magnesium Citrate] Solution 300 ml PO ONCE Qty: 296 0RF Rx Instructions: take 1/2 bottle , if no response in 4-6 hours, then drink the rest of the bottle albuterol sulfate [Ventolin HFA] 90 mcg/actuation HFA aerosol inhaler 2 inh INHALATION Q4H PRN (Reason: shortness of breath or wheezing) Qty: 18 6RF ipratropium-albuterol 0.5 mg-3 mg(2.5 mg base)/3 mL solution for nebulization 3 ml inhalation Q4H PRN PRN (Reason: SOB &/OR WHEEZING) Qty: 180 6RF aspirin 81 mg tablet,chewable 81 mg PO QHS Patient Comments: antiplatelet nitroglycerin [Nitrostat] 0.4 mg tablet, sublingual 0.4 mg SUBLINGUAL Q5-15M PRN (Reason: chest pain) Qty: 25 2RF ipratropium-albuterol 0.5 mg-3 mg(2.5 mg base)/3 mL solution for nebulization 3 ml inhalation 4X/DAY PRN PRN (Reason: shortness of breath or wheezing) Qty: 90 6RF montelukast 10 mg tablet 10 mg PO QHS Qty: 90 3RF carvedilol 25 mg tablet 25 mg PO BID Qty: 180 3RF Rx Instructions: must administer with a meal/food atorvastatin 40 mg tablet 40 mg PO QODAY Qty: 45 3RF amlodipine 10 mg tablet 10 mg PO DAILY Qty: 90 3RF pantoprazole 40 mg tablet,delayed release (DR/EC) 40 mg PO DAILY Qty: 90 1RF ipratropium bromide 0.02 % solution 2.5 ml inhalation Q6H PRN (Reason: shortness of breath or wheezing) Qty: 150 11RF loratadine 10 mg tablet 10 mg PO DAILY Qty: 90 0RF (DME) pen needle, diabetic [1st Tier Unifine Pentips] 31 gauge x 1/4 needle See Rx Instructions .Route Qty: 100 1RF Rx Instructions: daily isosorbide mononitrate 30 mg tablet extended release 24 hr 30 mg PO DAILY Qty: 90 1RF Changed insulin glargine [Lantus Solostar U-100 Insulin] 100 unit/mL (3 mL) insulin pen 22 unit subcut QAM Qty: 3 0RF Discontinued furosemide 40 mg tablet 40 mg PO .COMPLEX Qty: 180 3RF Rx Instructions: 40 mg orally daily. Take 40 mg BID if weight > 190lbs; Referrals / Follow Up: Riaz Garrison MD [Primary Care Provider] - In 1 Week Luiz Painter DO [Med Staff - Active Staff] - Within 1 Month Jonny Abebe MD [Med Staff - Consulting] - Within 1 Month Marguerite Jennings NP, ELECTROCARDIOGRAPH REPAIRER-C [Non-Staff -Ordering Privileges] - Within 2 Weeks Disposition Disposition (needs filled in before D/C Order can be placed): Home, Self Care Charges/Coding Visit Charges Inpatient E&M: 41725 Disch Hosp >30min 01/29/24 1259 <Electronically signed by Fernandez Santana MD> Cosigner Signature (if applicable): CC: Dr. Riaz Garrison MD; Dr. Fernandez Santana MD~ Signed [facility] Work Phone: [phone] 344-658004-24-2024 Discharge summary Author Fernandez Santana [facility] January 29, 2024 12:49pm Note Date/Time January 29, 2024 12: 42pm [facility] Medical Records Department [address] [place] [address] Instructions for Home/Discharge Instructions 01/29/24 1241 MR#: [id number] Acct: [id number] Name: DESIREE AMES Rep #:[id number] : 1935 88 From: Fernandez Valentine PCP: Dr. Riaz Grarison MD Status:ADM IN Discharge Instructions Diet Discharge Diet: Low fat / Low cholesterol, 6 Cup Fluid Restriction and 2000 mg Sodium Diet Activity Discharge Activity: Return to Normal Activity Weight Bearing Status: Weight bearing as tolerated Dressing / Incision Call your doctor if you observe: Fever of 101 or Higher, Coldness, Increased Pain, Numbness or Tingling, Change in Color, Inability to urinate, Inability to have a bowel movement, Shortness of breath, Dizziness, Fainting spells, Swellingin the ankles, Chest pain, Prolonged hiccupping, Increased palpitations (irregular heartbeat) and Calf discomfort Follow Up Care When: IN 2 WEEKS Test Results: Test results from this visit will be discussed in further detail at your follow- up appointment, if applicable. Discharge Plan Admission Admit Date/Time: 01/26/24 16:19 Attending Provider: Fernandez Santana Primary Care Provider: Riaz Garrison Consulting Providers: Hansel Gillis; Jonny Abebe Discharge Orders/Prescriptions Prescriptions: New sennosides-docusate sodium [Stool Softener-Stimulant Laxat] 8.6-50 mg Tablet 2 tab PO BID Qty: 0 0RF insulin lispro [Humalog KwikPen Insulin] 100 unit/mL Insulin Pen 15 unit subcut TIDAC Qty: 15 2RF Rx Instructions: Hold if glucose less than 130 mg/dl furosemide 40 mg Tablet 40 mg PO BIDLX 30 Days Qty: 60 1RF Rx Instructions: Hold for NARENDRA prednisone 10 mg tablet 10 mg PO DAILY Qty: 30 0RF Rx Instructions: 40 mg for 3 days 30 mg for 3 days, 20 mg for 3 days,and 10 mg for 3 days Continued ammonium lactate 12 % lotion 1 applic TOPICAL QD-BID PRN (Reason: dry skin ) (DME) handicap placcard Qty: 1 0RF Rx Instructions: Lifetime: debility coenzyme Q10 [Co Q-10] 100 mg capsule 100 mg PO DAILY ascorbate calcium (vitamin C) 500 mg tablet 500 mg PO DAILY cholecalciferol (vitamin D3) 100 mcg (4,000 unit) tablet 100 mcg (4,000 unit) tablet 100 mcg PO DAILY (DME) spacer See Rx Instructions .ROUTE .MEDSUPPLY Qty: 1 0RF Rx Instructions: As directed ipratropium bromide 42 mcg (0.06 %) spray,non-aerosol 2 spray INTRANASAL TID-QID PRN (Reason: allergy symptoms) Qty: 15 6RF Rx Instructions: nasal drip - administer into each nostril; wait 30 seconds between sprays budesonide-formoterol [Symbicort] 160-4.5 mcg/actuation HFA aerosol inhaler 2 puff inhalation BID Qty: 1 3RF Rx Instructions: administer with spacer, rinse mouth after each use (DME) OneTouch Ultra Test Strip See Rx Instructions .Route Qty: 180 1RF Rx Instructions: Check twice a day. (DME) lancets Misc See Rx Instructions .Route Qty: 180 1RF Rx Instructions: twice daily hydralazine 100 mg tablet 100 mg PO BID Qty: 180 3RF Eliquis 2.5 mg tablet 2.5 mg PO BID Qty: 90 1RF ferrous sulfate 325 mg (65 mg iron) tablet 325 mg PO Q OTHER DAY Qty: 30 1RF magnesium citrate [OneLAX Magnesium Citrate] Solution 300 ml PO ONCE Qty: 296 0RF Rx Instructions: take 1/2 bottle , if no response in 4-6 hours, then drink the rest of the bottle albuterol sulfate [Ventolin HFA] 90 mcg/actuation HFA aerosol inhaler 2 inh INHALATION Q4H PRN (Reason: shortness of breath or wheezing) Qty: 18 6RF ipratropium-albuterol 0.5 mg-3 mg(2.5 mg base)/3 mL solution for nebulization 3 ml inhalation Q4H PRN PRN (Reason: SOB &/OR WHEEZING) Qty: 180 6RF aspirin 81 mg tablet,chewable 81 mg PO QHS Patient Comments: antiplatelet nitroglycerin [Nitrostat] 0.4 mg tablet, sublingual 0.4 mg SUBLINGUAL Q5-15M PRN (Reason: chest pain) Qty: 25 2RF ipratropium-albuterol 0.5 mg-3 mg(2.5 mg base)/3 mL solution for nebulization 3 ml inhalation 4X/DAY PRN PRN (Reason: shortness of breath or wheezing) Qty: 90 6RF montelukast 10 mg tablet 10 mg PO QHS Qty: 90 3RF carvedilol 25 mg tablet 25 mg PO BID Qty: 180 3RF Rx Instructions: must administer with a meal/food atorvastatin 40 mg tablet 40 mg PO QODAY Qty: 45 3RF amlodipine 10 mg tablet 10 mg PO DAILY Qty: 90 3RF pantoprazole 40 mg tablet,delayed release (DR/EC) 40 mg PO DAILY Qty: 90 1RF ipratropium bromide 0.02 % solution 2.5 ml inhalation Q6H PRN (Reason: shortness of breath or wheezing) Qty: 150 11RF loratadine 10 mg tablet 10 mg PO DAILY Qty: 90 0RF (DME) pen needle, diabetic [1st Tier Unifine Pentips] 31 gauge x 1/4 needle See Rx Instructions .Route Qty: 100 1RF Rx Instructions: daily isosorbide mononitrate 30 mg tablet extended release 24 hr 30 mg PO DAILY Qty: 90 1RF Changed insulin glargine [Lantus Solostar U-100 Insulin] 100 unit/mL (3 mL) insulin pen 22 unit subcut QAM Qty: 3 0RF Discontinued furosemide 40 mg tablet 40 mg PO .COMPLEX Qty: 180 3RF Rx Instructions: 40 mg orally daily. Take 40 mg BID if weight > 190lbs; Referrals / Follow Up: Riaz Garrison MD [Primary Care Provider] - In 1 Week Luiz Painter DO [Med Staff - Active Staff] - Within 1 Month Jonny Abebe MD [Med Staff - Consulting] - Within 1 Month Disposition Disposition (needs filled in before D/C Order can be placed): Home, Self Care 01/29/24 1249<Electronically signed by Fernandez Santana MD>Fernandez Santana MD CC: Dr. Hansel Gillis MD; Dr. Riaz Garrison MD; Dr. Jonny Abebe MD ~ Signed [facility] Work Phone: 1(210) 734-479504-24-2024 Consult note Author Jonny Abebe [facility] January 29, 2024 11:51am Note Date/Time January 29, 2024 11: 49am [facility] Medical Records Department [address] [place], [place] [address] [address] Consultation - Nephrology 01/29/24 1146 MR#: [id number] Acct: [id number] Name: DESIREE AMES Rep #:[id number] : 1935 88 From: Jonny jolley MD PCP: Dr. Riaz Garrison MD Status:ADM IN Location: [place] [address] Assessment & Plan Assessment/Plan (1) Chronic kidney disease: QUALIFIERS: Chronic kidney disease stage: stage 4 (severe) Qualified Code(s): N18.4 - Chronic kidney disease, stage 4 (severe) PLAN: History of CKD stage IV. Baseline creatinine around 2.4. Denies any new onset obstructive symptoms. Chronic mild degree of retention. Continue Lasix. Still has significant lower extremity edema. I will add metolazone for today overall he says breathing has improved. (2) Bilateral edema of lower extremity: HPI Consult Data Date of Consult: 01/29/24 HPI Narrative HPI Narrative: DESIREE AMES, is a 88 M who presents to the hospital with shortness of breath. Nephrology on consultation in view of CKD stage IV. [facility] History of CKD stage IV with baseline creatinine around 2.4. No significant proteinuria in the past. History of COPD, congestive heart failure. Apparently baseline weight is around 190 pounds. Weight went up to 215 pounds. Recently had left lower extremity iliofemoral reconstruction with vascular surgery. He states edema has worsened since then. Since admission, he has received Lasix. Breathing is slightly better. Still has significant lower extremity edema. Currently on Lasix 40 mg twice daily. Denies any obstructive symptoms. Chronic history of BPH, he does have some degree of retention which is not needed. [facility] Medical History (Updated 01/29/24 @ 11:[address] Jonny Abebe MD) (HFpEF) heart failure with preserved ejection fraction Abdominal aortic aneurysm (AAA) Acute cystitis with hematuria Allergic rhinitis Ambulates with cane Anemia Arthritis Asthma Asthma-COPD overlap syndrome Atherosclerotic heart disease of [place] coronary artery without angina pectoris Back pain BiPAP (biphasic positive airway pressure) dependence Cancer Carotid bruit Chest pain Chronic constipation Chronic cough Colon polyp Colonic mass Constipation COPD (chronic obstructive pulmonary disease) Coronary artery disease Daytime hypersomnia DDD (degenerative disc disease), lumbar Debility DM2 (diabetes mellitus, type 2) ALMEIDA (dyspnea on exertion) Dyslipidemia Easy bruising Essential (primary) hypertension Fatigue Former smoker Frequent hospital admissions Gastroesophageal reflux disease History of edema History of heart attack History of hiatal hernia History of irregular heartbeat History of pain when walking History of renal disease History of steroid therapy History of stress test Hoarseness Hyperlipidemia Injury of back Kidney stone Leg cramps Lightheadedness Obstructive sleep apnea MARIXA (obstructive sleep apnea) Overweight Patellar bursitis of right knee Peripheral vascular disease of extremity with claudication Pleural effusion Pneumonia Pre-syncope PVD (peripheral vascular disease) Rectus sheath hematoma Recurrent urinary tract infection Restless legs syndrome Right leg swelling Seasonal allergies Shortness of breath on exertion Sleep apnea Somatic dysfunction of pelvic region Urinary retention Walker as ambulation aid Wears dentures Wears glasses Wears hearing aid Home Medications ammonium lactate 12 % lotion 1 applic topical QD-BID PRN dry skin 02/06/18 [History Last Taken Unknown] handicap placcard #1 ea 09/28/19 [Rx Last Taken Unknown] ascorbate calcium (vitamin C) 500 mg tablet 500 mg PO DAILY Bone strength 05/03/20 [History Last Taken 03/09/22] coenzyme Q10 100 mg capsule (Co Q-10) 100 mg PO DAILY 05/03/20 [History Last Taken Unknown] cholecalciferol (vitamin D3) 100 mcg (4,000 unit) tablet 100 mcg PO DAILY 11/03/20 [History Last Taken Unknown] spacer #1 ea 01/12/21 [Rx Last Taken Unknown] aspirin 81 mg chewable tablet 81 mg PO QHS heart health 05/30/22 [History Last Taken Unknown] nitroglycerin 0.4 mg sublingual tablet (Nitrostat) 0.4 mg sublingual Q5-15M PRN chest pain #25 tabs 06/08/22 [Rx Last Taken Unknown] ipratropium 0.5 mg-albuterol 3 mg (2.5 mg base)/3 mL nebulization soln 3 ml inhalation 4X/DAY PRN PRN shortness of breath or wheezing #90 mL 08/03/22 [Rx Last Taken Unknown] furosemide 40 mg tablet 40 mg PO .COMPLEX #180 tabs 04/05/23 [Rx Last Taken Unknown] montelukast 10 mg tablet 10 mg PO QHS Respiratory #90 tabs 04/24/23 [Rx Last Taken Unknown] atorvastatin 40 mg tablet 40 mg PO QODAY cholesterol #45 tabs 05/23/23 [Rx Last Taken Unknown] carvedilol 25 mg tablet 25 mg PO BID #180 tabs 05/23/23 [Rx Last Taken Unknown] lancets #180 ea 07/18/23 [Rx Last Taken Unknown] amlodipine 10 mg tablet 10 mg PO DAILY This is a dose increase #90 tabs 08/28/23[Rx Last Taken Unknown] blood sugar diagnostic (Palm Ultra Test strips) #180 ea 09/16/23 [Rx Last Taken Unknown] budesonide-formoterol HFA 160 mcg-4.5 mcg/actuation aerosol inhaler (Symbicort) 2 puff inhalation BID #1 ea 10/23/23 [Rx Last Taken Unknown] ipratropium bromide 42 mcg (0.06 %) nasal spray 2 spray intranasal TID-QID PRN allergy symptoms #15 mL 10/23/23 [Rx Last Taken Unknown] pantoprazole 40 mg tablet,delayed release 40 mg PO DAILY reflux #90 tabs 11/19/23 [Rx Last Taken Unknown] ipratropium bromide 0.02 % solution for inhalation 2.5 ml inhalation Q6H PRN shortness of breath or wheezing #150 mL 12/06/23 [Rx Last Taken Unknown] apixaban 2.5 mg tablet (Eliquis) 2.5 mg PO BID #90 tabs 12/12/23 [Rx Last Taken Unknown] ferrous sulfate 325 mg (65 mg iron) tablet 325 mg PO Q OTHER DAY #30 tabs 12/16/23 [Rx Last Taken Unknown] loratadine 10 mg tablet 10 mg PO DAILY #90 tabs 12/16/23 [Rx Last Taken Unknown] hydralazine 100 mg tablet 100 mg PO BID #180 tabs 12/26/23 [Rx Last Taken Unknown] albuterol sulfate 90 mcg/actuation aerosol inhaler (Ventolin HFA) 2 inh inhalation Q4H PRN shortness of breath or wheezing #18 grams 01/01/24 [Rx Last Taken Unknown] ipratropium 0.5 mg-albuterol 3 mg (2.5 mg base)/3 mL nebulization soln 3 ml inhalation Q4H PRN PRN SOB &/OR WHEEZING #180 mL 01/01/24 [Rx Last Taken Unknown] magnesium citrate (OneLAX Magnesium Citrate oral solution) 300 ml PO ONCE #296 mL 01/02/24 [Rx Last Taken Unknown] pen needle, diabetic 31 gauge x 1/4 (1st Tier Unifine Pentips) #100 ea 01/15/24[Rx Last Taken Unknown] insulin glargine 100 unit/mL (3 mL) subcutaneous pen (Lantus Solostar U-100 Insulin) 18 unit subcut QAM 01/20/24 [History Last Taken Unknown] isosorbide mononitrate 30 mg tablet,extended release 24 hr 30 mg PO DAILY #90 tabs 01/22/24 [Rx Last Taken Unknown] Allergy/AdvReac Type Severity Reaction Status Date / Time cilostazol [From Pletal] Allergy Unknown Verified 01/20/24 13:28 felodipine Allergy Hives Verified 01/20/24 13:28 levofloxacin Allergy Hives Verified 01/20/24 13:28 Sulfa (Sulfonamide Allergy Unknown Verified 01/20/24 13:28 Antibiotics) Family History Father Diabetes Cancer Prostate cancer Mother Dementia Brother Parkinsons Brother Cancer Surgical History (Updated 01/20/24 @ 13:[address] Riaz Garrison MD) H/O aortic aneurysm repair (11/1998) H/O vascular surgery History of coronary artery stent placement (02/17/08) History of endarterectomy (07/2018) History of hernia repair History of left heart catheterization (03/2014) History of surgical procedure History of transurethral resection of prostate History of vascular surgery (08/2018) Social History (Updated 01/20/24 @ 13:[address] 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 Smoking Status: Former smoker quit date: 08/07/08 pack-years: 2 Tobacco: How many years used: 52 Electronic Cigarette Use: not used how long ago did patient quit smokin years ago alcohol intake: current alcohol intake frequency: holidays/special occasions only details: hx of alcohol abuse substance use type: does not use caffeine: No what type of physical activity do you participate in: other details: Nustep frequency: 5-6 times per week duration: 15-30 minutes/day seatbelt use: always do you feel safe at home: Yes ROS ROS Narrative Negative except above Physical Exam Narrative Alert awake oriented x 3 no obvious distress no pallor no icterus no JVD s1s2 no murmurs lungs clear abdomen soft no organomegaly no edema no cyanosis Lab / Micro Data 01/29/24 07:24 01/29/24 07:24 Labs: Laboratory Results - last 24 hr 01/28/24 11:32: POC Glucose 222 H 01/28/24 16:26: POC Glucose 301 H 01/28/24 20:30: POC Glucose 329 H 01/29/24 02:11: POC Glucose 186 H 01/29/24 07:24: WBC 6.9, RBC 2.89 L, Hgb 7.2 L, Hct 24.9 L, MCV 86.2, MCH 24.9 L, MCHC 28.9 L, RDW Std Deviation 50.4 H, RDW Coeff of Justin 16.5 H, Plt Count 301,MPV 11.1, Immature Gran % (Auto) 0.300, Neut % (Auto) 73.3 H, Lymph % (Auto) 17.2 L, [place] % (Auto) 8.7, Eos % (Auto) 0.4, Baso % (Auto) 0.1, Absolute Neuts (auto) 5.1, Absolute Lymphs (auto) 1.19, Nucleated RBC % 0, Sodium 135 L, Potassium 4.0, Chloride 99, Carbon Dioxide 29.0, Anion Gap 7, BUN 50 H, Creatinine 2.48 H, Estim Creat Clear Calc 24.10, Est GFR (MDRD) Af Amer 32 L, Est GFR (MDRD) Non-Af 26 L, BUN/Creatinine Ratio 20.2 H, Glucose 166 H, Calcium 9.1, Iron 9 L, TIBC 308, Iron Saturation 2.9 L, Ferritin 24 L 01/29/24 07:30: POC Glucose 177 H 01/29/24 11:17: POC Glucose 169 H 01/29/24 1151 <Electronically signed by Jonny Abebe MD> Cosigner Signature (if applicable): CC: Dr. Riaz Garrison MD~ Signed [facility] Work Phone: 1(736) 485-627904-24-2024 Consult note Author Luiz Painter [facility] January 29, 2024 7:37am Note Date/Time January 29, 2024 7:3 7am [facility] Medical Records Department [address] [place] [address] Consultation - Welding Manager 01/29/24725 MR#: [id number] Acct: [id number] Name: DESIREE AMES Rep #:[id number] : 1935 88 From: Luiz Painter DO PCP: Dr. Riaz Garrison MD Status:ADM IN [id number] Assessment & Plan Assessment/Plan (1) Asthma-COPD overlap syndrome: PLAN: Plan RECOMMENDATIONS: 1. Continue bronchodilators and steroids as ordered. 2. Recommend prednisone taper at discharge. 3. Perform walking oximetry study prior to consideration for discharge home. 4. Send type and screen. Recommend transfusing if hemoglobin drops below 7 g/dL. 5. If anemia worsens, consider GI consultation. 6. Continue ongoing diuresis as tolerated by hemodynamics and renal function. 7. Follow-up in the pulmonary medicine clinic in March, as scheduled. 8. Given baseline pulmonary status, will sign off. Please call with any additional questions. IMPRESSIONS: 1. History of COPD with exacerbation I do suspect that the patient's longstanding dyspnea is likely multifactorial inetiology with underlying obstructive lung disease, heart failure with preserved ejection fraction, anemia and generalized deconditioning contributing. However,the patient is not hypoxemic. He is on an appropriate inhaler regimen on an outpatient basis. He has been compliant with his prescribed medication regimen. It is reasonable to continue scheduled bronchodilators and steroids, with plansfor a taper at discharge. I have no new additional recommendations from a pulmonary perspective. 2. CHF exacerbation Continue ongoing diuresis as tolerated by hemodynamics and renal function. 3. Anemia Recommend sending type and screen. Transfuse if hemoglobin drops below 7 g/dL. If anemia worsens, consider GI consultation. 4. History of chronic kidney disease/obstructive sleep apnea/hypertension/hyperlipidemia/obesity Complicates care, management, recovery and prognosis. Continue home medicationsas indicated. This note was generated with [employer] software. It may contain incorrectwords, spelling, and punctuation that were not noted in checking the note beforesigning. HPI Consult Data Date of Consult: 01/29/24 HPI Narrative Reason for Consultation: COPD exacerbation HPI Narrative: The patient is an 88-year-old male, with a history as outlined below, who presented to the emergency department on January 25 with shortness of breath. Thepatient has a known history of coronary artery disease status post PCI, hypertension, hyperlipidemia, obstructive sleep apnea and COPD. He was previously under the care of Dr. Rivero. The patient was last seen in the pulmonary office on December 31, at which time, he was placed on antibiotics and prednisone for a presumptive exacerbation. The patient has chronic, longstanding exertional dyspnea without any evidence of hypoxemia. The patient has a presumptive history of heart failure with preserved ejection fraction. On presentation to the emergency department, the patient was noted to be afebrile and hemodynamically stable. The patient was maintaining appropriate oxygen saturations on room air. Laboratory evaluation revealed a normal white blood cell count with baseline anemia. Hemoglobin was noted to be 7.6 g/dL. Chemistry profile was notable for chronic kidney disease with a creatinine of 2.3. Troponin was negative but BNP was elevated at 790. Chest x-ray demonstrated bilateral pleural effusions. The patient was subsequently admitted to the hospital, where he has been maintained on scheduled bronchodilators, corticosteroids and scheduled Lasix. The patient has been maintaining appropriate oxygen saturations on room air throughout his hospitalization. He has been afebrile. He has been compliant with his home prescribed inhaler regimen. [facility] Medical History (Updated 01/26/24 @ 16:[address] Elvin Milligan MD) (HFpEF) heart failure with preserved ejection fraction Abdominal aortic aneurysm (AAA) Acute cystitis with hematuria Allergic rhinitis Ambulates with cane Anemia Arthritis Asthma Asthma-COPD overlap syndrome Atherosclerotic heart disease of [place] coronary artery without angina pectoris Back pain BiPAP (biphasic positive airway pressure) dependence Cancer Carotid bruit Chest pain Chronic constipation Chronic cough Colon polyp Colonic mass Constipation COPD (chronic obstructive pulmonary disease) Coronary artery disease Daytime hypersomnia DDD (degenerative disc disease), lumbar Debility DM2 (diabetes mellitus, type 2) ALMEIDA (dyspnea on exertion) Dyslipidemia Easy bruising Essential (primary) hypertension Fatigue Former smoker Frequent hospital admissions Gastroesophageal reflux disease History of edema History of heart attack History of hiatal hernia History of irregular heartbeat History of pain when walking History of renal disease History of steroid therapy History of stress test Hoarseness Hyperlipidemia Injury of back Kidney stone Leg cramps Lightheadedness Obstructive sleep apnea MARIXA (obstructive sleep apnea) Overweight Patellar bursitis of right knee Peripheral vascular disease of extremity with claudication Pleural effusion Pneumonia Pre-syncope PVD (peripheral vascular disease) Rectus sheath hematoma Recurrent urinary tract infection Restless legs syndrome Right leg swelling Seasonal allergies Shortness of breath on exertion Sleep apnea Somatic dysfunction of pelvic region Urinary retention Walker as ambulation aid Wears dentures Wears glasses Wears hearing aid Home Medications ammonium lactate 12 % lotion 1 applic topical QD-BID PRN dry skin 02/06/18 [History Last Taken Unknown] handicap placcard #1 ea 09/28/19 [Rx Last Taken Unknown] ascorbate calcium (vitamin C) 500 mg tablet 500 mg PO DAILY Bone strength 05/03/20 [History Last Taken 03/09/22] coenzyme Q10 100 mg capsule (Co Q-10) 100 mg PO DAILY 05/03/20 [History Last Taken Unknown] cholecalciferol (vitamin D3) 100 mcg (4,000 unit) tablet 100 mcg PO DAILY 11/03/20 [History Last Taken Unknown] spacer #1 ea 01/12/21 [Rx Last Taken Unknown] aspirin 81 mg chewable tablet 81 mg PO QHS heart health 05/30/22 [History Last Taken Unknown] nitroglycerin 0.4 mg sublingual tablet (Nitrostat) 0.4 mg sublingual Q5-15M PRN chest pain #25 tabs 06/08/22 [Rx Last Taken Unknown] ipratropium 0.5 mg-albuterol 3 mg (2.5 mg base)/3 mL nebulization soln 3 ml inhalation 4X/DAY PRN PRN shortness of breath or wheezing #90 mL 08/03/22 [Rx Last Taken Unknown] furosemide 40 mg tablet 40 mg PO .COMPLEX #180 tabs 04/05/23 [Rx Last Taken Unknown] montelukast 10 mg tablet 10 mg PO QHS Respiratory #90 tabs 04/24/23 [Rx Last Taken Unknown] atorvastatin 40 mg tablet 40 mg PO QODAY cholesterol #45 tabs 05/23/23 [Rx Last Taken Unknown] carvedilol 25 mg tablet 25 mg PO BID #180 tabs 05/23/23 [Rx Last Taken Unknown] lancets #180 ea 07/18/23 [Rx Last Taken Unknown] amlodipine 10 mg tablet 10 mg PO DAILY This is a dose increase #90 tabs 08/28/23[Rx Last Taken Unknown] blood sugar diagnostic (Palm Ultra Test strips) #180 ea 09/16/23 [Rx Last Taken Unknown] budesonide-formoterol HFA 160 mcg-4.5 mcg/actuation aerosol inhaler (Symbicort) 2 puff inhalation BID #1 ea 10/23/23 [Rx Last Taken Unknown] ipratropium bromide 42 mcg (0.06 %) nasal spray 2 spray intranasal TID-QID PRN allergy symptoms #15 mL 10/23/23 [Rx Last Taken Unknown] pantoprazole 40 mg tablet,delayed release 40 mg PO DAILY reflux #90 tabs 11/19/23 [Rx Last Taken Unknown] ipratropium bromide 0.02 % solution for inhalation 2.5 ml inhalation Q6H PRN shortness of breath or wheezing #150 mL 12/06/23 [Rx Last Taken Unknown] apixaban 2.5 mg tablet (Eliquis) 2.5 mg PO BID #90 tabs 12/12/23 [Rx Last Taken Unknown] ferrous sulfate 325 mg (65 mg iron) tablet 325 mg PO Q OTHER DAY #30 tabs 12/16/23 [Rx Last Taken Unknown] loratadine 10 mg tablet 10 mg PO DAILY #90 tabs 12/16/23 [Rx Last Taken Unknown] hydralazine 100 mg tablet 100 mg PO BID #180 tabs 12/26/23 [Rx Last Taken Unknown] albuterol sulfate 90 mcg/actuation aerosol inhaler (Ventolin HFA) 2 inh inhalation Q4H PRN shortness of breath or wheezing #18 grams 01/01/24 [Rx Last Taken Unknown] ipratropium 0.5 mg-albuterol 3 mg (2.5 mg base)/3 mL nebulization soln 3 ml inhalation Q4H PRN PRN SOB &/OR WHEEZING #180 mL 01/01/24 [Rx Last Taken Unknown] magnesium citrate (OneLAX Magnesium Citrate oral solution) 300 ml PO ONCE #296 mL 01/02/24 [Rx Last Taken Unknown] pen needle, diabetic 31 gauge x 1/4 (1st Tier Unifine Pentips) #100 ea 01/15/24[Rx Last Taken Unknown] insulin glargine 100 unit/mL (3 mL) subcutaneous pen (Lantus Solostar U-100 Insulin) 18 unit subcut QAM 01/20/24 [History Last Taken Unknown] isosorbide mononitrate 30 mg tablet,extended release 24 hr 30 mg PO DAILY #90 tabs 01/22/24 [Rx Last Taken Unknown] Allergy/AdvReac Type Severity Reaction Status Date / Time cilostazol [From Pletal] Allergy Unknown Verified 01/20/24 13:28 felodipine Allergy Hives Verified 01/20/24 13:28 levofloxacin Allergy Hives Verified 01/20/24 13:28 Sulfa (Sulfonamide Allergy Unknown Verified 01/20/24 13:28 Antibiotics) Family History Father Diabetes Cancer Prostate cancer Mother Dementia Brother Parkinsons Brother Cancer Surgical History (Updated 01/20/24 @ 13:[address] Riaz Garrison MD) H/O aortic aneurysm repair (11/1998) H/O vascular surgery History of coronary artery stent placement (02/17/08) History of endarterectomy (07/2018) History of hernia repair History of left heart catheterization (03/2014) History of surgical procedure History of transurethral resection of prostate History of vascular surgery (08/2018) Social History (Updated 01/20/24 @ 13:[address] 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 Smoking Status: Former smoker quit date: 08/07/08 pack-years: 2 Tobacco: How many years used: 52 Electronic Cigarette Use: not used how long ago did patient quit smokin years ago alcohol intake: current alcohol intake frequency: holidays/special occasions only details: hx of alcohol abuse substance use type: does not use caffeine: No what type of physical activity do you participate in: other details: Nustep frequency: 5-6 times per week duration: 15-30 minutes/day seatbelt use: always do you feel safe at home: Yes ROS ROS Narrative 10 systems were reviewed with pertinent positives as noted in the HPI above. Physical Exam Const alert and no apparent distress General Appearance: cooperative HEENT normocephalic and head/scalp atraumatic Eyes PERRL, EOMs intact bilaterally and conjunctivae normal Neck supple General: trachea midline Chest inspection of chest normal Resp normal respiratory effort Auscultation: Negative for rales, rhonchi or wheezes Cardio regular rate and regular rhythm GI normal to inspection, nondistended, normoactive bowel sounds Extremity Extremity Narrative: Wrapped lower extremities General Extremity: Negative for clubbing Neuro CN's II-XII intact bilaterally, moves all extremities and no focal motor deficits Psych cooperative and affect normal Lab / Micro Data 01/28/24 06:44 01/28/24 06:44 Labs: Laboratory Results - last 24 hr 01/28/24 06:44: WBC 6.7, RBC 2.95 L, Hgb 7.1 L, Hct 25.0 L, MCV 84.7, MCH 24.1 L, MCHC 28.4 L, RDW Std Deviation 51.6 H, RDW Coeff of Justin 16.5 H, Plt Count 283,MPV 11.1, Immature Gran % (Auto) 0.400, Neut % (Auto) 79.0 H, Lymph % (Auto) 12.9 L, [place] % (Auto) 7.6, Eos % (Auto) 0.0, Baso % (Auto) 0.1, Absolute Neuts (auto) 5.3, Absolute Lymphs (auto) 0.87, Nucleated RBC % 0, Sodium 135 L, Potassium 3.9, Chloride 98, Carbon Dioxide 29.0, Anion Gap 8, BUN 43 H, Creatinine 2.39 H, Estim Creat Clear Calc 25.01, Est GFR (MDRD) Af Amer 33 L, Est GFR (MDRD) Non-Af 28 L, BUN/Creatinine Ratio 18.0, Glucose 236 H, Calcium 9.1 01/28/24 11:32: POC Glucose 222 H 01/28/24 16:26: POC Glucose 301 H 01/28/24 20:30: POC Glucose 329 H 01/29/24 02:11: POC Glucose 186 H Charges/Coding Visit Charges Inpatient E&M: 15055 Init Hosp L2 01/29/24 0737 <Electronically signed by Luiz Painter DO> Cosigner Signature (if applicable): CC: Dr. Riaz Garrison MD~ Signed [facility] Work Phone: 1(223) 749-791404-23-2024 Progress note Author Fernandez Santana [facility] January 28, 2024 12:55pm Note Date/Time January 28, 2024 12: 47pm [facility] Medical Records Department [address] [place] [address] Progress Note - Hospitalist 01/28/24 1246 MR#: [id number] Acct: [id number] Name: DESIREE AMES Rep #:[id number] : 1935 88 From: Fernandez Valentine PCP: Dr. Riaz Garrison MD Status:ADM IN [id number] Reason for Visit Reason for Visit: Diagnoses Chronic kidney disease, unspecified (01/26/24) Objective Data Objective Data Vital Signs: Vital Signs Temp Pulse Resp BP Pulse Ox O2 Del Method O2 Flow Rate 98.5 F 57 L 18 141/62 H 98 Room Air 2 01/28/24 07:32 01/28/24 10:32 01/28/24 07:45 01/28/24 08:38 01/28/24 10:32 01/28/24 10:32 01/28/24 03:11 Oxygen Flow Rate (L/min) 2 Oxygen Delivery Method Room Air Weight: 213 lb Body Mass Index (BMI) 33.2 Intake & Output: Intake and Output for Last 24 Hours 01/26/24 01/27/24 01/28/24 23:59 23:59 23:59 Intake Total 100 / 100 840 / 840 400 / 400 Output Total 350 / 650 1550 / 1550 350 / 350 Balance -250 / -550 -710 / -710 50 / 50 Lab / Micro Data 01/28/24 06:44 01/28/24 06:44 Labs: Laboratory Results - last 24 hr 01/27/24 11:02: POC Glucose 188 H 01/27/24 16:54: POC Glucose 260 H 01/27/24 21:44: POC Glucose 228 H 01/28/24 03:03: POC Glucose 341 H 01/28/24 05:42: POC Glucose 255 H 01/28/24 06:44: WBC 6.7, RBC 2.95 L, Hgb 7.1 L, Hct 25.0 L, MCV 84.7, MCH 24.1 L, MCHC 28.4 L, RDW Std Deviation 51.6 H, RDW Coeff of Justin 16.5 H, Plt Count 283,MPV 11.1, Immature Gran % (Auto) 0.400, Neut % (Auto) 79.0 H, Lymph % (Auto) 12.9 L, [place] % (Auto) 7.6, Eos % (Auto) 0.0, Baso % (Auto) 0.1, Absolute Neuts (auto) 5.3, Absolute Lymphs (auto) 0.87, Nucleated RBC % 0, Sodium 135 L, Potassium 3.9, Chloride 98, Carbon Dioxide 29.0, Anion Gap 8, BUN 43 H, Creatinine 2.39 H, Estim Creat Clear Calc 25.01, Est GFR (MDRD) Af Amer 33 L, Est GFR (MDRD) Non-Af 28 L, BUN/Creatinine Ratio 18.0, Glucose 236 H, Calcium 9.1 01/28/24 11:32: POC Glucose 222 H Radiography Diagnostic Testing: Radiology Impression Echocardiogram 01/26/24 17:13 Interpretation Summary The estimated ejection fraction is 55 %. Unable to assess diastolic dysfunction. The left atrium is mildly enlarged. The right atrium is mildly enlarged. Trivial mitral valve insufficiency. Ordering Physician: Hansel Gillis Performed By: Dalton Perez RCS Physical Exam Narrative Seen and examined. History of heart failure and COPD. Not on home oxygen. Overall shortness of breath is improved but he still has fatigue and leg swelling. Dyspnea on exertion walking in hallway. Discussed with . After right lower extremity stenting, he was not doing much physical work therefore gained weight/deconditioning and easily short of breath. Used to follow Dr. Rivero. 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 Physical exam General: Alert, Oriented x3, Cooperative HEENT: Atraumatic, PERRLA, EOMI, Normocephalic Oral: No Gingival or Mucosal Lesions/ Ulcerations Neck: Supple, No JVD, Negative Carotid Bruits Chest wall/Lungs: Air entry severely diminished. No wheezing. Mild expiratoryrhonchi Cardiovascular: Irregular rhythm, S1-S2 regular. No M/G/R, stent in left leg infiltrate in 11/30 Abdomen: Bowel Sounds Present, Soft, Non Tender, Non-Distended : No dysuria. No renal angle tenderness. No suprapubic tenderness. Extremities: Bilateral below-knee pitting edema, Capillary Refill Less than 3 Seconds Skin: No rashes, No breakdown Musculoskeletal: No Tenderness to Palpation of Joints or Extremities Neurological: Cranial nerves II-XII grossly intact, DTR 2+/4. No acute focal neurological deficit. Psych/Mental Status: Flat affect Assessment & Plan Assessment/Plan (1) Chronic kidney disease: PLAN: Plan 88-year-old man with history of COPD, A-fib with RVR, HFrEF, prior coronary artery disease, MARIXA presents to the ED with progressive worsening shortness of breath and decline in his functional status, worsening for last 2 days. Chronicdyspnea on exertion for several years along with chronic cough the likely reasonfor his presentation is multifactorial. # Acute on chronic HFpEF: 2D echo from 422 reviewed. EF 55%, no RWMA. Normal RV size and systolic function. LA mildly enlarged. Trivial MR. -IV Lasix 40 mg twice daily with hemodynamic monitoring and kidney function. Furosemide and spironolactone. Heart failure core measures including intake andoutput, fluid restriction less than 1500 mL, daily weight monitoring, kidney andelectrolytes monitoring. CKD stage IV: Creatinine is between 2.2-2.4 with estimated creatinine clearance around 26 or per minute. On baseline. 01/27: Slight increase in creatinine from 2.2-2.39. IV furosemide changed to oral furosemide. Follows [facility] took a dose already. Patient has appointment with nephrology tomorrow. Consulted ordered as per patient's request #COPD exacerbation: Patient is Sterets that he has increasing shortness of breath/dyspnea on exertion along with increase in severity and frequency of cough and sputum production therefore acute COPD exacerbation -DuoNeb scheduled. Prednisone ordered as patient with hyperglycemia. Continue baseline inhaler 01/27: Overall improvement in shortness of breath but he still has dyspnea on mild exertion. Patient and his wish to see a grants specialist. Used to follow Dr. Rivero before he left her. Discussed with Dr. Painter and consult requested. - PT/OT and Case management consult #Hypertension: -Continue tab amlodipine 10 mg daily -Hydralazine 100 mg twice daily # Afib: Presently rate is well controlled -Continue apixaban 2.5 mg twice daily -Type carvedilol 25 mg twice daily # Prior CAD: Last stress test was negative for ischemia -Aspirin 81 mg daily -Atorvastatin 40 mg daily -Continue isosorbide mononitrate 30 mg # MARIXA: Continue bipap at home settings, consider outpatient reevaluation after discharge #Type 2 diabetes: -Continue insulin glargine 18 units subcu in the a.m. -Close sugar monitoring -Insulin sliding scale 01/27 glucose levels are high at 250, scheduled Lantus and Humalog insulin dose increased accordingly. #GERD continue pantoprazole daily Constipation: MiraLAX and senna S started # DVT: Moderate to high risk: On apixaban. Charges/Coding Visit Charges Inpatient E&M: 42683 Subs Hosp L2 01/28/24 1252 <Electronically signed by Fernandez Santana MD> Cosigner Signature (if applicable): CC: ~ Signed [facility] Work Phone: 1(876) 687-277404-22-2024 Progress note Author Fernandez Santana [facility] January 27, 2024 4:10pm Note Date/Time January 27, 2024 11: 12am [facility] Medical Records Department [address] [place] [id number] Progress Note - Hospitalist 01/27/24 1109 MR#: [id number] Acct: [id number] Name: DESIREE AMES Rep #:[id number] : 1935 88 From: Fernandez Valentine PCP: Dr. Riaz Grarison MD Status:ADM IN [id number] Reason for Visit Reason for Visit: Diagnoses Chronic kidney disease, unspecified (01/26/24) Objective Data Objective Data Vital Signs: Vital Signs Temp Pulse Resp BP Pulse Ox O2 Del Method O2 Flow Rate 98.0 F 80 20 H 156/83 H 100 Nasal Cannula 2 01/27/24 07:51 01/27/24 09:22 01/27/24 07:51 01/27/24 07:51 01/27/24 07:51 01/27/24 07:51 01/27/24 10:40 Oxygen Flow Rate (L/min) 2 Oxygen Delivery Method Nasal Cannula Weight: 218 lb 11.177 oz Body Mass Index (BMI) 33.2 Intake & Output: Intake and Output for Last 24 Hours 01/25/24 01/26/24 01/27/24 23:59 23:59 23:59 Intake Total 100 / 100 240 / 240 Output Total 350 / 650 550 / 550 Balance -250 / -550 -310 / -310 Lab / Micro Data 01/27/24 06:18 01/27/24 06:18 Labs: Laboratory Results - last 24 hr 01/26/24 13:40: WBC 6.0, RBC 3.05 L, Hgb 7.6 L, Hct 26.2 L, MCV 85.9, MCH 24.9 L, MCHC 29.0 L, RDW Std Deviation 53.1 H, RDW Coeff of Justin 17.1 H, Plt Count 257,MPV 10.5, Immature Gran % (Auto) 0.500, Neut % (Auto) 68.3, Lymph % (Auto) 18.5 L, [place] % (Auto) 10.2 H, Eos % (Auto) 2.2, Baso % (Auto) 0.3, Absolute Neuts (auto) 4.1, Absolute Lymphs (auto) 1.10, Nucleated RBC % 0, Sodium 137, Potassium 3.8, Chloride 98, Carbon Dioxide 32.0, Anion Gap 7, BUN 35 H, Creatinine 2.30 H, Estim Creat Clear Calc 26.32, Est GFR (MDRD) Af Amer 35 L, Est GFR (MDRD) Non-Af 29 L, BUN/Creatinine Ratio 15.2, Glucose 282 H, Calcium 8.8, Troponin I High Sens 15, B-Natriuretic Peptide 790.9 H 01/26/24 17:24: POC Glucose 171 H 01/26/24 18:11: Hemoglobin A1c 8.6 H 01/26/24 21:43: POC Glucose 210 H 01/27/24 04:23: POC Glucose 233 H 01/27/24 06:18: WBC 6.2, RBC 3.15 L, Hgb 7.7 L, Hct 26.5 L, MCV 84.1, MCH 24.4 L, MCHC 29.1 L, RDW Std Deviation 50.9 H, RDW Coeff of Justin 16.8 H, Plt Count 274,MPV 10.8, Immature Gran % (Auto) 0.300, Neut % (Auto) 62.7, Lymph % (Auto) 22.8,[place] % (Auto) 10.5 H, Eos % (Auto) 3.4, Baso % (Auto) 0.3, Absolute Neuts (auto)3.9, Absolute Lymphs (auto) 1.41, Nucleated RBC % 0, PT 18.2 H, INR 1.5, Sodium 136, Potassium 3.7, Chloride 100, Carbon Dioxide 29.0, Anion Gap 7, BUN 35 H, Creatinine 2.20 H, Estim Creat Clear Calc 27.52, Est GFR (MDRD) Af Amer 37 L, Est GFR (MDRD) Non-Af 30 L, BUN/Creatinine Ratio 15.9, Glucose 150 H, Calcium 8.6, Phosphorus 3.2, Magnesium 2.0, Total Bilirubin 0.40, Direct Bilirubin 0.13,AST 19, ALT 25, Alkaline Phosphatase 69, Total Protein 6.3 L, Albumin 2.9 L, Globulin 3.4, Albumin/Globulin Ratio 0.9, TSH 2.57 Radiography Diagnostic Testing: Radiology Impression Chest X-Ray 01/26/24 14:10 IMPRESSION: There are bilateral pleural effusions. There are bilateral infiltrates. Electronically Signed: Bartolo Castillo MD at 14:24 EDT Reading Location ID and State: [facility] / [place] , Service support , Physical Exam Narrative Seen and examined. History of heart failure and COPD. Not on home oxygen. Denies chest pain but has shortness of breath on exertion, fatigue and leg swelling. Increase in cough severity and frequency in the last 1 to 2 weeks along with sputum production but the sputum is mainly mucus. Complain of constipation Physical exam General: Alert, Oriented x3, Cooperative HEENT: Atraumatic, PERRLA, EOMI, Normocephalic Oral: No Gingival or Mucosal Lesions/ Ulcerations Neck: Supple, No JVD, Negative Carotid Bruits Chest wall/Lungs: Air entry severely diminished. No wheezing. Mild rhonchi Cardiovascular: Irregular rhythm, S1-S2 regular. No M/G/R, stent in left leg infiltrate in 11/30 Abdomen: Bowel Sounds Present, Soft, Non Tender, Non-Distended : No dysuria. No renal angle tenderness. No suprapubic tenderness. Extremities: Bilateral below-knee pitting edema, Capillary Refill Less than 3 Seconds Skin: No rashes, No breakdown Musculoskeletal: No Tenderness to Palpation of Joints or Extremities Neurological: Cranial nerves II-XII grossly intact, DTR 2+/4. No acute focal neurological deficit. Psych/Mental Status: Flat affect Assessment & Plan Assessment/Plan (1) Chronic kidney disease: PLAN: Plan 88-year-old man with history of COPD, A-fib with RVR, HFrEF, prior coronary artery disease, MARIXA presents to the ED with progressive worsening shortness of breath and decline in his functional status, worsening for last 2 days. Chronicdyspnea on exertion for several years along with chronic cough the likely reasonfor his presentation is multifactorial. symptoms are not consistent with an acute exacerbation of COPD [no changes in cough, no sudden decline in shortness of breath, no desaturation]. It is likelydue to ADHF on HFrEF secondary to A-fib or Pulmonary hypertension 2/2 COPD. # Acute on chronic HFpEF: 2D echo from 422 reviewed. EF 55%, no RWMA. Normal RV size and systolic function. LA mildly enlarged. Trivial MR. -IV Lasix 40 mg twice daily with hemodynamic monitoring and kidney function. Furosemide and spironolactone. Heart failure core measures including intake andoutput, fluid restriction less than 1500 mL, daily weight monitoring, kidney andelectrolytes monitoring. CKD stage IV: Creatinine is between 2.2-2.4 with estimated creatinine clearance around 26 or per minute. On baseline. #COPD exacerbation: Patient is Sterets that he has increasing shortness of breath/dyspnea on exertion along with increase in severity and frequency of cough and sputum production therefore acute COPD exacerbation -DuoNeb scheduled. Prednisone ordered as patient with hyperglycemia. Continue baseline inhaler - PT/OT and Case management consult #Hypertension: -Continue tab amlodipine 10 mg daily -Hydralazine 100 mg twice daily # Afib: Presently rate is well controlled -Continue apixaban 2.5 mg twice daily -Type carvedilol 25 mg twice daily # Prior CAD: Last stress test was negative for ischemia -Aspirin 81 mg daily -Atorvastatin 40 mg daily -Continue isosorbide mononitrate 30 mg # MARIXA: Continue bipap at home settings, consider outpatient reevaluation after discharge #Type 2 diabetes: -Continue insulin glargine 18 units subcu in the a.m. -Close sugar monitoring -Insulin sliding scale #GERD continue pantoprazole daily Constipation: MiraLAX and senna S started # DVT: Moderate to high risk: On apixaban. Charges/Coding Visit Charges Inpatient E&M: 13264 Subs Hosp L2 01/27/24 1610 <Electronically signed by Fernandez Santana MD> Cosigner Signature (if applicable): CC: ~ Signed [facility] Work Phone: 1(136) 558-532404-21-2024 Discharge summary Author Elvin Milligan [facility] January 26, 2024 5:00pm Note Date/Time January 26, 2024 1:4 6pm [facility] Medical Records Department [address] [place] [address] Emergency Department Summary 01/26/24 MR#: [id number] Acct: [id number] Name: DESIREE AMES Rep #:[id number] : 1935 88 From: Aaliyah CARRERA PCP: Dr. Riaz Garrison MD Status:ADM IN [place] [facility] [id number] HPI <DEBI Barraza - Last Filed: 01/26/24 15:54> History of Present Illness Chief Complaint: Shortness of Breath Narrative Narrative: 88-year-old male with PMH of HTN, HLD, DM2, A-fib, PAD, CHF, MARIXA, COPD presents with more dyspnea over the last 2 days. Patient states that he has been dyspneic for several years and has a chronic cough. 1 month ago he was in the EDwith dyspnea and was treated with azithromycin and prednisone but states he did not feel better. He followed up with pulmonology and was prescribed additional prednisone with no benefit. His states since yesterday he seems even more winded than usual. He denies fever or increasing cough or sputum production. No chest pain, palpitations or syncope. He has chronic lower extremity swellingand they have been more swollen over the last few weeks. His states he barely gets up and walks. He is on Lasix 40 mg once daily. He takes Eliquis forA-fib. He also has a history of AAA repair and surgery on bilateral iliacs. Hedoes not wear home oxygen. [facility] <DEBI Barraza - Last Filed: 01/26/24 15:54> [facility] Medical History (Updated 01/26/24 @ 16:[address] Elvin Milligan MD) (HFpEF) heart failure with preserved ejection fraction Abdominal aortic aneurysm (AAA) Acute cystitis with hematuria Allergic rhinitis Ambulates with cane Anemia Arthritis Asthma Asthma-COPD overlap syndrome Atherosclerotic heart disease of [place] coronary artery without angina pectoris Back pain BiPAP (biphasic positive airway pressure) dependence Cancer Carotid bruit Chest pain Chronic constipation Chronic cough Colon polyp Colonic mass Constipation COPD (chronic obstructive pulmonary disease) Coronary artery disease Daytime hypersomnia DDD (degenerative disc disease), lumbar Debility DM2 (diabetes mellitus, type 2) ALMEIDA (dyspnea on exertion) Dyslipidemia Easy bruising Essential (primary) hypertension Fatigue Former smoker Frequent hospital admissions Gastroesophageal reflux disease History of edema History of heart attack History of hiatal hernia History of irregular heartbeat History of pain when walking History of renal disease History of steroid therapy History of stress test Hoarseness Hyperlipidemia Injury of back Kidney stone Leg cramps Lightheadedness Obstructive sleep apnea MARIXA (obstructive sleep apnea) Overweight Patellar bursitis of right knee Peripheral vascular disease of extremity with claudication Pleural effusion Pneumonia Pre-syncope PVD (peripheral vascular disease) Rectus sheath hematoma Recurrent urinary tract infection Restless legs syndrome Right leg swelling Seasonal allergies Shortness of breath on exertion Sleep apnea Somatic dysfunction of pelvic region Urinary retention Walker as ambulation aid Wears dentures Wears glasses Wears hearing aid Home Medications ammonium lactate 12 % lotion 1 applic topical QD-BID PRN dry skin 02/06/18 [History Last Taken Unknown] handicap placcard #1 ea 09/28/19 [Rx Last Taken Unknown] ascorbate calcium (vitamin C) 500 mg tablet 500 mg PO DAILY Bone strength 05/03/20 [History Last Taken 03/09/22] coenzyme Q10 100 mg capsule (Co Q-10) 100 mg PO DAILY 05/03/20 [History Last Taken Unknown] cholecalciferol (vitamin D3) 100 mcg (4,000 unit) tablet 100 mcg PO DAILY 11/03/20 [History Last Taken Unknown] spacer #1 ea 01/12/21 [Rx Last Taken Unknown] aspirin 81 mg chewable tablet 81 mg PO QHS heart health 05/30/22 [History Last Taken Unknown] nitroglycerin 0.4 mg sublingual tablet (Nitrostat) 0.4 mg sublingual Q5-15M PRN chest pain #25 tabs 06/08/22 [Rx Last Taken Unknown] ipratropium 0.5 mg-albuterol 3 mg (2.5 mg base)/3 mL nebulization soln 3 ml inhalation 4X/DAY PRN PRN shortness of breath or wheezing #90 mL 08/03/22 [Rx Last Taken Unknown] furosemide 40 mg tablet 40 mg PO .COMPLEX #180 tabs 04/05/23 [Rx Last Taken Unknown] montelukast 10 mg tablet 10 mg PO QHS Respiratory #90 tabs 04/24/23 [Rx Last Taken Unknown] atorvastatin 40 mg tablet 40 mg PO QODAY cholesterol #45 tabs 05/23/23 [Rx Last Taken Unknown] carvedilol 25 mg tablet 25 mg PO BID #180 tabs 05/23/23 [Rx Last Taken Unknown] lancets #180 ea 07/18/23 [Rx Last Taken Unknown] amlodipine 10 mg tablet 10 mg PO DAILY This is a dose increase #90 tabs 08/28/23[Rx Last Taken Unknown] blood sugar diagnostic ([employer] Ultra Test strips) #180 ea 09/16/23 [Rx Last Taken Unknown] budesonide-formoterol HFA 160 mcg-4.5 mcg/actuation aerosol inhaler (Symbicort) 2 puff inhalation BID #1 ea 10/23/23 [Rx Last Taken Unknown] ipratropium bromide 42 mcg (0.06 %) nasal spray 2 spray intranasal TID-QID PRN allergy symptoms #15 mL 10/23/23 [Rx Last Taken Unknown] pantoprazole 40 mg tablet,delayed release 40 mg PO DAILY reflux #90 tabs 11/19/23 [Rx Last Taken Unknown] ipratropium bromide 0.02 % solution for inhalation 2.5 ml inhalation Q6H PRN shortness of breath or wheezing #150 mL 12/06/23 [Rx Last Taken Unknown] apixaban 2.5 mg tablet (Eliquis) 2.5 mg PO BID #90 tabs 12/12/23 [Rx Last Taken Unknown] ferrous sulfate 325 mg (65 mg iron) tablet 325 mg PO Q OTHER DAY #30 tabs 12/16/23 [Rx Last Taken Unknown] loratadine 10 mg tablet 10 mg PO DAILY #90 tabs 12/16/23 [Rx Last Taken Unknown] hydralazine 100 mg tablet 100 mg PO BID #180 tabs 12/26/23 [Rx Last Taken Unknown] albuterol sulfate 90 mcg/actuation aerosol inhaler (Ventolin HFA) 2 inh inhalation Q4H PRN shortness of breath or wheezing #18 grams 01/01/24 [Rx Last Taken Unknown] ipratropium 0.5 mg-albuterol 3 mg (2.5 mg base)/3 mL nebulization soln 3 ml inhalation Q4H PRN PRN SOB &/OR WHEEZING #180 mL 01/01/24 [Rx Last Taken Unknown] magnesium citrate (OneLAX Magnesium Citrate oral solution) 300 ml PO ONCE #296 mL 01/02/24 [Rx Last Taken Unknown] pen needle, diabetic 31 gauge x 1/4 (1st Tier Unifine Pentips) #100 ea 01/15/24[Rx Last Taken Unknown] insulin glargine 100 unit/mL (3 mL) subcutaneous pen (Lantus Solostar U-100 Insulin) 18 unit subcut QAM 01/20/24 [History Last Taken Unknown] isosorbide mononitrate 30 mg tablet,extended release 24 hr 30 mg PO DAILY #90 tabs 01/22/24 [Rx Last Taken Unknown] Allergy/AdvReac Type Severity Reaction Status Date / Time cilostazol [From Pletal] Allergy Unknown Verified 01/20/24 13:28 felodipine Allergy Hives Verified 01/20/24 13:28 levofloxacin Allergy Hives Verified 01/20/24 13:28 Sulfa (Sulfonamide Allergy Unknown Verified 01/20/24 13:28 Antibiotics) Family History Father Diabetes Cancer Prostate cancer Mother Dementia Brother Parkinsons Brother Cancer Surgical History (Updated 01/20/24 @ 13:[address] Riaz Garrison MD) H/O aortic aneurysm repair (11/1998) H/O vascular surgery History of coronary artery stent placement (02/17/08) History of endarterectomy (07/2018) History of hernia repair History of left heart catheterization (03/2014) History of surgical procedure History of transurethral resection of prostate History of vascular surgery (08/2018) Social History (Updated 01/20/24 @ 13:[address] 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 Smoking Status: Former smoker quit date: 08/07/08 pack-years: 2 Tobacco: How many years used: 52 Electronic Cigarette Use: not used how long ago did patient quit smokin years ago alcohol intake: current alcohol intake frequency: holidays/special occasions only details: hx of alcohol abuse substance use type: does not use caffeine: No what type of physical activity do you participate in: other details: Nustep frequency: 5-6 times per week duration: 15-30 minutes/day seatbelt use: always do you feel safe at home: Yes ROS <DEBI Barraza - Last Filed: 01/26/24 15:54> ROS ED ROS Narrative Constitutional: Negative for fever, chills, malaise. CVS: Negative for palpitations, chest pain, syncope. Respiratory: Positive for shortness of breath, chronic cough. GI: Negative for abdominal pain, nausea, vomiting. EXAM <DEBI Barraza - Last Filed: 01/26/24 15:54> Physical Exam Narrative Exam Narrative: CONST: Patient sitting in no acute distress. EYES: Normal inspection. NECK: Normal inspection. RESP: Tachypneic around 24/minute, diminished lung sounds. CVS: Regular rate and rhythm, no murmur, no gallop. Back: Normal inspection, no CVA tenderness. SKIN: Color normal, no rash, warm, dry, intact. EXTREMITIES: Significant symmetric pitting edema both lower extremities, no warmth or skin changes. NEURO: Alert and answering questions appropriately. PSYCH: Normal affect. Const Vital Signs: 01/26/24 13:10 01/26/24 14:38 01/26/24 14:38 Temperature 98.3 F Temperature Source Oral Pulse Rate 63 69 Respiratory Rate 26 H 20 H Respiratory Effort Respiratory Depth Respiratory Pattern Tachypnea Blood Pressure 130/68 H Blood Pressure Mean 88 Pulse Ox 92 93 Oxygen Delivery Method Room Air Room Air 01/26/24 15:12 01/26/24 15:00 Temperature Temperature Source Pulse Rate 68 Respiratory Rate 30 H Respiratory Effort Short of Breath Respiratory Depth Normal Respiratory Pattern Tachypnea Blood Pressure 132/65 H Blood Pressure Mean 87 Pulse Ox 98 Oxygen Delivery Method Room Air Room Air <Dr. Elvin Milligan MD - Last Filed: 01/26/24 17:00> Physical Exam Const Vital Signs: 01/26/24 13:10 01/26/24 14:38 01/26/24 14:38 Temperature 98.3 F Temperature Source Oral Pulse Rate 63 69 Respiratory Rate 26 H 20 H Respiratory Effort Respiratory Depth Respiratory Pattern Tachypnea Blood Pressure 130/68 H Blood Pressure Mean 88 Pulse Ox 92 93 Oxygen Delivery Method Room Air Room Air 01/26/24 15:12 01/26/24 15:00 Temperature Temperature Source Pulse Rate 68 Respiratory Rate 30 H Respiratory Effort Short of Breath Respiratory Depth Normal Respiratory Pattern Tachypnea Blood Pressure 132/65 H Blood Pressure Mean 87 Pulse Ox 98 Oxygen Delivery Method Room Air Room Air MDM <DEBI Barraza - Last Filed: 01/26/24 15:54> [facility] Narrative Medical decision making narrative: History gathered from: Patient and Differential: COPD, CHF, pneumonia, ACS Patient with longstanding history of dyspnea has had worsening dyspnea over the last few days. He appears well and nontoxic. He is mildly tachypneic but able to converse. There are some Tory rhonchi and diminished lung sounds. He has 3+bilateral lower extremity edema. Workup shows white count of 6.0. Hemoglobin of 7.6 is around baseline which runs between 7?8. He has normal electrolytes. Creatinine 2.30 is consistent with his CKD. Troponin is normal at 15. BNP 790 around baseline. CXR is read as bilateral pleural effusions and bilateral infiltrates; however I doubt he has acute pneumonia as he has had no change in his cough, no fever, no leukocytosis. Over the last month he is also taken an antibiotic and steroids x 2 without improvement. I suspect his dyspnea is multifactorial from underlying pulmonary process/COPD and congestive heart failure. Patient was able to ambulate about 10 feet and did not become hypoxic but became very dyspneic and tachypneic around 30 breaths/minute and had to sit down. He will need admitted for further workup. Case was discussed with the hospitalist. Lab Data Attestation: I reviewed the patient's lab results. Labs: Laboratory Results - last 24 hr 01/26/24 13:40 WBC 6.0 RBC 3.05 L Hgb 7.6 L Hct 26.2 L MCV 85.9 MCH 24.9 L MCHC 29.0 L RDW Std Deviation 53.1 H RDW Coeff of Justin 17.1 H Plt Count 257 MPV 10.5 Immature Gran % (Auto) 0.500 Neut % (Auto) 68.3 Lymph % (Auto) 18.5 L [place] % (Auto) 10.2 H Eos % (Auto) 2.2 Baso % (Auto) 0.3 Absolute Neuts (auto) 4.1 Absolute Lymphs (auto) 1.10 Nucleated RBC % 0 Sodium 137 Potassium 3.8 Chloride 98 Carbon Dioxide 32.0 Anion Gap 7 BUN 35 H Creatinine 2.30 H Estim Creat Clear Calc 26.32 Est GFR (MDRD) Af Amer 35 L Est GFR (MDRD) Non-Af 29 L BUN/Creatinine Ratio 15.2 Glucose 282 H Calcium 8.8 Troponin I High Sens 15 B-Natriuretic Peptide 790.9 H Radiography Diagnostic Testing: Clinical Impression(s) from Imaging Studies Chest X-Ray 01/26/24 14:10 IMPRESSION: There are bilateral pleural effusions. There are bilateral infiltrates. Electronically Signed: Bartolo Castillo MD at 14:24 EDT Reading Location ID and State: [facility] / [place] , Service support , <Dr. Elvin Milligan MD - Last Filed: 01/26/24 17:00> [facility] History & Record Review Additional record(s) reviewed:: Prior outpatient record (PFTs) Lab Data Labs: Laboratory Results - last 24 hr 01/26/24 13:40 WBC 6.0 RBC 3.05 L Hgb 7.6 L Hct 26.2 L MCV 85.9 MCH 24.9 L MCHC 29.0 L RDW Std Deviation 53.1 H RDW Coeff of Justin 17.1 H Plt Count 257 MPV 10.5 Immature Gran % (Auto) 0.500 Neut % (Auto) 68.3 Lymph % (Auto) 18.5 L [place] % (Auto) 10.2 H Eos % (Auto) 2.2 Baso % (Auto) 0.3 Absolute Neuts (auto) 4.1 Absolute Lymphs (auto) 1.10 Nucleated RBC % 0 Sodium 137 Potassium 3.8 Chloride 98 Carbon Dioxide 32.0 Anion Gap 7 BUN 35 H Creatinine 2.30 H Estim Creat Clear Calc 26.32 Est GFR (MDRD) Af Amer 35 L Est GFR (MDRD) Non-Af 29 L BUN/Creatinine Ratio 15.2 Glucose 282 H Calcium 8.8 Troponin I High Sens 15 B-Natriuretic Peptide 790.9 H Radiography Diagnostic Testing: Clinical Impression(s) from Imaging Studies Chest X-Ray 01/26/24 14:10 IMPRESSION: There are bilateral pleural effusions. There are bilateral infiltrates. Electronically Signed: Bartolo Castillo MD at 14:24 EDT Reading Location ID and State: [facility] / [place] , Service support , Management Discussion w/another healthcare provider: Hospitalist Additional Tests and Interventions Additional Tests or Interventions: I have personally performed a face to face assessment of the patient and have reviewed the AIDA Note. I performed a substantive portion of the visit including all aspects of the following. My dumont findings include: History is progressively worsening dyspnea especially in the last several days. Patient can walk 10 feet or less before having to stop. No exertional chest discomfort. No cough or fevers. Seen here 1 month ago for same and declined admission, has followed up with PCP and pulmonary in the meantime and due to seenephrology this coming week, and cardiology in March. Was prescribed prednisone x 2 courses, neither helped. Antibiotics did not help. Feeling weak, more trouble getting up and around due to this and increased bilateral lower extremity edema, with 15 pound weight gain recently. Exam is expiratory rhonchi bilaterally and diffusely, high-pitched. Does not sound wet. No wheezes. Mildly tachypneic but in no respiratory distress and able to converse while at rest. No JVD. Heart regular systolic murmur present. 3+ bilateral lower extremity significant pitting edema that is symmetric. No sign of cellulitis. Medical Decison Making renal function, chest x-ray, EKG, duo nebulizer treatment, will walk without oxygen since he is on no home oxygen and likely admit. Concern is for interstitial lung disease, pulm fibrosis, vs. COPD-relateddyspnea, but he has not responded recently to typical outpatient COPD treatments. Last PFT in 2017 shows severe COPD pattern/defect. On my interpretation, 2 view CXR shows what appear to be chronic bibasilar abnormalities/airspace disease w/ small pleural effusion on left. Unchanged c/w prior. I do not think this represents acute pneumonia so holding off on further antibiotic therapy at this time. Other additions or changes: [None] Discharge Plan Triage Chief Complaint: Shortness of Breath ED Midlevel Provider: Aaliyah Collins ED Provider: Elvin Milligan Dx/Rx/DC Orders Clinical Impression: Acute respiratory insufficiency, Bilateral edema of lower extremity, Chronic anemia, Chronic kidney disease Primary Care Provider: Riaz Garrison What to do if you have Problems For any increased pain, shortness of breath, bleeding, nausea or vomiting, chest pain, or any unexpected problems, contact your Primary Care Provider. Call [facility] ([phone]) or report to the closest Emergency Room. Call 911 if necessary. 01/26/24 1554 <Electronically signed by Aaliyah CARRERA> Cosigner Signature (if applicable): 01/26/24 1700 <Electronically signed by Elvin Milligan MD> CC: Dr. Riaz Garrison MD ~ Signed [facility] Work Phone: 1(529) 154-931804-21-2024 History and physical note Author Hansel Gillis [facility] January 26, 2024 4:48pm Note Date/Time January 26, 2024 4:2 4pm [facility] Medical Records Department [address] [place] [address] H&P Exam - Hospitalist 01/26/24 1608 MR#: [id number] Acct: [id number] Name: DESIREE AMES Rep #:[id number] : 1935 88 From: Hansel Gillis MD PCP: Dr. Riaz Garrison MD Status:ADM IN [place] [facility] [id number] HPI - General General Date of Admission: 01/26/24 Date of Service: 01/26/24 Chief Complaint: Shortness of breath HPI Narrative DESIREE AMES, is a 88 M with past medical history of HTN, HLD, DM2, A-fib, PAD,CHF, MARIXA, COPD coronary artery disease with angioplasty and stenting of his RCA with mild residual disease in his distal RCA who presents to the ED with concerns regarding progressive shortness of breath since the last few months, worse over the last few days. Notes that the symptoms did not improve after recent courses therapy given by his grants specialist and reported from prior ED visits. Per the the decline has been very gradual and there is no sudden episodes of fever/changes in cough or expectoration/medication noncompliance. He recently saw his grants specialist for similar concerns, his main concern is shortness of breath, decreased functionality and is not able to walk as much as before. Has increased frequency of his nebulizer treatments but they were not helpful. He completed a course of corticosteroids prescribed in the ED from December 24 to December 25 2023. There were concerns regarding COPD exacerbation, NIOX procedure was performed and results are elevated suggesting that he would benefit from systemic steroids. He was started on prednisone 40 mg for 3 days followed by 30 for 3 days 20 for 3 days and 10 mg for 3 days. Also started on acourse of Augmentin. From a cardiac standpoint his stress test was negative in 11/26 to 05/26/2022, andhis ejection fraction was 65% on 05/14/2023. He is on carvedilol 25 mg twice daily, furosemide 40 mg daily, spironolactone 25 daily [facility] Medical History (Updated 01/26/24 @ 15:54 by DEBI Barraza) (HFpEF) heart failure with preserved ejection fraction Abdominal aortic aneurysm (AAA) Acute cystitis with hematuria Allergic rhinitis Ambulates with cane Anemia Arthritis Asthma Asthma-COPD overlap syndrome Atherosclerotic heart disease of [place] coronary artery without angina pectoris Back pain BiPAP (biphasic positive airway pressure) dependence Cancer Carotid bruit Chest pain Chronic constipation Chronic cough Colon polyp Colonic mass Constipation COPD (chronic obstructive pulmonary disease) Coronary artery disease Daytime hypersomnia DDD (degenerative disc disease), lumbar Debility DM2 (diabetes mellitus, type 2) ALMEIDA (dyspnea on exertion) Dyslipidemia Easy bruising Essential (primary) hypertension Fatigue Former smoker Frequent hospital admissions Gastroesophageal reflux disease History of edema History of heart attack History of hiatal hernia History of irregular heartbeat History of pain when walking History of renal disease History of steroid therapy History of stress test Hoarseness Hyperlipidemia Injury of back Kidney stone Leg cramps Lightheadedness Obstructive sleep apnea MARIXA (obstructive sleep apnea) Overweight Patellar bursitis of right knee Peripheral vascular disease of extremity with claudication Pleural effusion Pneumonia Pre-syncope PVD (peripheral vascular disease) Rectus sheath hematoma Recurrent urinary tract infection Restless legs syndrome Right leg swelling Seasonal allergies Shortness of breath on exertion Sleep apnea Somatic dysfunction of pelvic region Urinary retention Walker as ambulation aid Wears dentures Wears glasses Wears hearing aid Home Medications ammonium lactate 12 % lotion 1 applic topical QD-BID PRN dry skin 02/06/18 [History Last Taken Unknown] handicap placcard #1 ea 09/28/19 [Rx Last Taken Unknown] ascorbate calcium (vitamin C) 500 mg tablet 500 mg PO DAILY Bone strength 05/03/20 [History Last Taken 03/09/22] coenzyme Q10 100 mg capsule (Co Q-10) 100 mg PO DAILY 05/03/20 [History Last Taken Unknown] cholecalciferol (vitamin D3) 100 mcg (4,000 unit) tablet 100 mcg PO DAILY 11/03/20 [History Last Taken Unknown] spacer #1 ea 01/12/21 [Rx Last Taken Unknown] aspirin 81 mg chewable tablet 81 mg PO QHS heart health 05/30/22 [History Last Taken Unknown] nitroglycerin 0.4 mg sublingual tablet (Nitrostat) 0.4 mg sublingual Q5-15M PRN chest pain #25 tabs 06/08/22 [Rx Last Taken Unknown] ipratropium 0.5 mg-albuterol 3 mg (2.5 mg base)/3 mL nebulization soln 3 ml inhalation 4X/DAY PRN PRN shortness of breath or wheezing #90 mL 08/03/22 [Rx Last Taken Unknown] furosemide 40 mg tablet 40 mg PO .COMPLEX #180 tabs 04/05/23 [Rx Last Taken Unknown] montelukast 10 mg tablet 10 mg PO QHS Respiratory #90 tabs 04/24/23 [Rx Last Taken Unknown] atorvastatin 40 mg tablet 40 mg PO QODAY cholesterol #45 tabs 05/23/23 [Rx Last Taken Unknown] carvedilol 25 mg tablet 25 mg PO BID #180 tabs 05/23/23 [Rx Last Taken Unknown] lancets #180 ea 07/18/23 [Rx Last Taken Unknown] amlodipine 10 mg tablet 10 mg PO DAILY This is a dose increase #90 tabs 08/28/23[Rx Last Taken Unknown] blood sugar diagnostic (Palm Ultra Test strips) #180 ea 09/16/23 [Rx Last Taken Unknown] budesonide-formoterol HFA 160 mcg-4.5 mcg/actuation aerosol inhaler (Symbicort) 2 puff inhalation BID #1 ea 10/23/23 [Rx Last Taken Unknown] ipratropium bromide 42 mcg (0.06 %) nasal spray 2 spray intranasal TID-QID PRN allergy symptoms #15 mL 10/23/23 [Rx Last Taken Unknown] pantoprazole 40 mg tablet,delayed release 40 mg PO DAILY reflux #90 tabs 11/19/23 [Rx Last Taken Unknown] ipratropium bromide 0.02 % solution for inhalation 2.5 ml inhalation Q6H PRN shortness of breath or wheezing #150 mL 12/06/23 [Rx Last Taken Unknown] apixaban 2.5 mg tablet (Eliquis) 2.5 mg PO BID #90 tabs 12/12/23 [Rx Last Taken Unknown] ferrous sulfate 325 mg (65 mg iron) tablet 325 mg PO Q OTHER DAY #30 tabs 12/16/23 [Rx Last Taken Unknown] loratadine 10 mg tablet 10 mg PO DAILY #90 tabs 12/16/23 [Rx Last Taken Unknown] hydralazine 100 mg tablet 100 mg PO BID #180 tabs 12/26/23 [Rx Last Taken Unknown] albuterol sulfate 90 mcg/actuation aerosol inhaler (Ventolin HFA) 2 inh inhalation Q4H PRN shortness of breath or wheezing #18 grams 01/01/24 [Rx Last Taken Unknown] ipratropium 0.5 mg-albuterol 3 mg (2.5 mg base)/3 mL nebulization soln 3 ml inhalation Q4H PRN PRN SOB &/OR WHEEZING #180 mL 01/01/24 [Rx Last Taken Unknown] magnesium citrate (OneLAX Magnesium Citrate oral solution) 300 ml PO ONCE #296 mL 01/02/24 [Rx Last Taken Unknown] pen needle, diabetic 31 gauge x 1/4 (1st Tier Unifine Pentips) #100 ea 01/15/24[Rx Last Taken Unknown] insulin glargine 100 unit/mL (3 mL) subcutaneous pen (Lantus Solostar U-100 Insulin) 18 unit subcut QAM 01/20/24 [History Last Taken Unknown] isosorbide mononitrate 30 mg tablet,extended release 24 hr 30 mg PO DAILY #90 tabs 01/22/24 [Rx Last Taken Unknown] Allergy/AdvReac Type Severity Reaction Status Date / Time cilostazol [From Pletal] Allergy Unknown Verified 01/20/24 13:28 felodipine Allergy Hives Verified 01/20/24 13:28 levofloxacin Allergy Hives Verified 01/20/24 13:28 Sulfa (Sulfonamide Allergy Unknown Verified 01/20/24 13:28 Antibiotics) Family History Father Diabetes Cancer Prostate cancer Mother Dementia Brother Parkinsons Brother Cancer Surgical History (Updated 01/20/24 @ 13:[address] Riaz Garrison MD) H/O aortic aneurysm repair (11/1998) H/O vascular surgery History of coronary artery stent placement (02/17/08) History of endarterectomy (07/2018) History of hernia repair History of left heart catheterization (03/2014) History of surgical procedure History of transurethral resection of prostate History of vascular surgery (08/2018) Social History (Updated 01/20/24 @ 13:[address] 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 Smoking Status: Former smoker quit date: 08/07/08 pack-years: 2 Tobacco: How many years used: 52 Electronic Cigarette Use: not used how long ago did patient quit smokin years ago alcohol intake: current alcohol intake frequency: holidays/special occasions only details: hx of alcohol abuse substance use type: does not use caffeine: No what type of physical activity do you participate in: other details: Nustep frequency: 5-6 times per week duration: 15-30 minutes/day seatbelt use: always do you feel safe at home: Yes ROS Review of Systems ROS Unobtainable: Denies due to encephalopathy, due to endotracheal tube, due tomental condition, due to mental status or other Constitutional Constitutional: Reports change in weight, fatigue, malaise and weakness Eyes Eyes: Denies blurry vision, change in eye color, change in vision, discharge from eye(s), double vision, erythema, eye pain, loss of vision or other ENT HEENT: Denies abnormal hearing, dysphagia, ear pain, epistaxis, headache(s), hearing loss, nasal congestion, nasal discharge, post nasal drip, sinus pressure, sore throat or other Cardiovascular Cardiovascular: Denies chest pain, claudication, dyspnea on exertion, edema, lightheadedness, orthopnea, palpitations, paroxysmal nocturnal dyspnea, rapid heart rate, syncope or other Respiratory/Chest Respiratory/Chest: Reports shortness of breath at rest, shortness of breath withexertion and wheezing Gastrointestinal Gastrointestinal: Denies abdominal pain, coffee ground emesis, constipation, diarrhea, dyspepsia, hematemesis, hematochezia, loose stools, melena, nausea, vomiting or other Genitourinary Genitourinary: Denies burning urination, difficulty urinating, dysuria, hematuria, nocturia, urinary frequency, urinary hesitancy, urinary incontinence,urinary urgency or other Musculoskeletal Musculoskeletal: Reports arthralgias and back pain Neurologic Neurologic: Denies abnormal gait, abnormal speech, confusion, disequilibrium, dizziness, focal weakness, headache(s), numbness, paresthesias, seizure-like activity, seizures, syncope, tingling, tremor(s) or other Psychiatric Psychiatric: Denies anxiety, depression, homicidal ideation, suicidal ideation or other Endocrine Endocrinology: Denies change in body appearance, cold intolerance, excessive sweating, heat intolerance, polydipsia, polyuria or other Hematologic/Lymphatic Hematologic/Lymphatic: Denies anemia, easy bleeding, easy bruising, lymphadenopathy or other Allergic/Immunologic Allergic/Immunologic: Denies rhinitis, hives, eczemia, asthma or other Vital Signs Vital Signs Vital Signs: 01/26/24 13:10 01/26/24 14:38 01/26/24 14:38 Temperature 98.3 F Temperature Source Oral Pulse Rate 63 69 Respiratory Rate 26 H 20 H Respiratory Pattern Tachypnea Blood Pressure 130/68 H Blood Pressure Mean 88 Pulse Ox 92 93 Oxygen Delivery Method Room Air Room Air 01/26/24 15:12 Temperature Temperature Source Pulse Rate 68 Respiratory Rate 30 H Respiratory Pattern Blood Pressure 132/65 H Blood Pressure Mean 87 Pulse Ox 98 Oxygen Delivery Method Room Air Weight Weight: 218 lb 11.177 oz Body Mass Index (BMI) 33.2 Physical Exam Const alert and oriented x3 HEENT normocephalic Eyes PERRL Neck no lymphadenopathy Resp Resp Narrative: Bilateral Rales present, more pronounced in the right interscapular region Auscultation: crackles and rales Cardio Cardio Narrative: Irregularly irregular heart rate GI normal to inspection, nondistended, normoactive bowel sounds Extremity Extremity Narrative: Bilateral pitting edema extending up to the knees Neuro oriented x3 Results Medical Records Data Attestation: I reviewed the patient's medical records Lab / Micro Data Attestation: I reviewed the patient's lab results. 01/26/24 13:40 01/26/24 13:40 Labs: Laboratory Results - last 24 hr 01/26/24 13:40: WBC 6.0, RBC 3.05 L, Hgb 7.6 L, Hct 26.2 L, MCV 85.9, MCH 24.9 L, MCHC 29.0 L, RDW Std Deviation 53.1 H, RDW Coeff of Justin 17.1 H, Plt Count 257,MPV 10.5, Immature Gran % (Auto) 0.500, Neut % (Auto) 68.3, Lymph % (Auto) 18.5 L, [place] % (Auto) 10.2 H, Eos % (Auto) 2.2, Baso % (Auto) 0.3, Absolute Neuts (auto) 4.1, Absolute Lymphs (auto) 1.10, Nucleated RBC % 0, Sodium 137, Potassium 3.8, Chloride 98, Carbon Dioxide 32.0, Anion Gap 7, BUN 35 H, Creatinine 2.30 H, Estim Creat Clear Calc 26.32, Est GFR (MDRD) Af Amer 35 L, Est GFR (MDRD) Non-Af 29 L, BUN/Creatinine Ratio 15.2, Glucose 282 H, Calcium 8.8, Troponin I High Sens 15, B-Natriuretic Peptide 790.9 H Imaging Radiology Impression Chest X-Ray 01/26/24 14:10 IMPRESSION: There are bilateral pleural effusions. There are bilateral infiltrates. Electronically Signed: Bartolo Castillo MD at 14:24 EDT , Assessment & Plan Assessment/Plan (1) Chronic kidney disease: PLAN: Plan 88-year-old man with history of COPD, A-fib with RVR, HFrEF, prior coronary artery disease, MARIXA presents to the ED with progressive worsening shortness of breath and decline in his functional status. The likely reason for his presentation is multifactorial, symptoms are not consistent with an acute exacerbation of COPD [no changes in cough, no sudden decline in shortness of breath, no desaturation]. It is likely due to ADHF on HFrEF secondary to A-fib or Pulmonary hypertension 2/2 COPD. #HFrEF: -Echocardiogram to reassess cardiac status and to rule out pulmonary hypertension -IV Lasix 40 mg twice daily [close monitor creatinine] - Restart Spironolactone and lasix #COPD: - Continue albuterol 90 mcg -Continue Symbicort 2 puff twice daily -Will hold off starting steroids at present given no features of acute respiratory deterioration - PT/OT and Case management consult #Hypertension: -Continue tab amlodipine 10 mg daily -Hydralazine 100 mg twice daily #A-fib: # Afib: Presently rate is well controlled -Continue apixaban 2.5 mg twice daily -Type carvedilol 25 mg twice daily # Prior CAD: Last stress test was negative for ischemia -Aspirin 81 mg daily -Atorvastatin 40 mg daily -Continue isosorbide mononitrate 30 mg # MARIXA: Continue bipap at home settings, consider outpatient reevaluation after discharge #Type 2 diabetes: -Continue insulin glargine 18 units subcu in the a.m. -Close sugar monitoring -Insulin sliding scale #GERD continue pantoprazole daily #CKD: creatinine at baseline at present. Continue to monitor after initiation ofthe diuretics # DVT: Low risk given the active anticoagulation for Afib. Charges/Coding Visit Charges Inpatient E&M: 55689 Init Hosp L2 01/26/24 1641 <Electronically signed by Hansel Gillis MD> Cosigner Signature (if applicable): CC: Dr. Hansel Gillis MD; Dr. Riaz Garrison MD~ Signed [facility] Work Phone: 1(279) 581-333004-21-2024 Discharge summary Author Elvin Milligan [facility] January 26, 2024 5:00pm Note Date/Time January 26, 2024 1:4 6pm [facility] Medical Records Department [address] [place] [address] Emergency Department Summary 01/26/24 MR#: [id number] Acct: [id number] Name: DESIREE AMES Rep #:[id number] : 1935 88 From: Aaliyah CARRERA PCP: Dr. Riaz Garrison MD Status:ADM IN [place] [facility] [id number] HPI <DEBI Barraza - Last Filed: 01/26/24 15:54> History of Present Illness Chief Complaint: Shortness of Breath Narrative Narrative: 88-year-old male with PMH of HTN, HLD, DM2, A-fib, PAD, CHF, MARIXA, COPD presents with more dyspnea over the last 2 days. Patient states that he has been dyspneic for several years and has a chronic cough. 1 month ago he was in the EDwith dyspnea and was treated with azithromycin and prednisone but states he did not feel better. He followed up with pulmonology and was prescribed additional prednisone with no benefit. His states since yesterday he seems even more winded than usual. He denies fever or increasing cough or sputum production. No chest pain, palpitations or syncope. He has chronic lower extremity swellingand they have been more swollen over the last few weeks. His states he barely gets up and walks. He is on Lasix 40 mg once daily. He takes Eliquis forA-fib. He also has a history of AAA repair and surgery on bilateral iliacs. Hedoes not wear home oxygen. PFS <DEBI Barraza - Last Filed: 01/26/24 15:54> [facility] Medical History (Updated 01/26/24 @ 16:[address] Elvin Milligan MD) (HFpEF) heart failure with preserved ejection fraction Abdominal aortic aneurysm (AAA) Acute cystitis with hematuria Allergic rhinitis Ambulates with cane Anemia Arthritis Asthma Asthma-COPD overlap syndrome Atherosclerotic heart disease of [place] coronary artery without angina pectoris Back pain BiPAP (biphasic positive airway pressure) dependence Cancer Carotid bruit Chest pain Chronic constipation Chronic cough Colon polyp Colonic mass Constipation COPD (chronic obstructive pulmonary disease) Coronary artery disease Daytime hypersomnia DDD (degenerative disc disease), lumbar Debility DM2 (diabetes mellitus, type 2) ALMEIDA (dyspnea on exertion) Dyslipidemia Easy bruising Essential (primary) hypertension Fatigue Former smoker Frequent hospital admissions Gastroesophageal reflux disease History of edema History of heart attack History of hiatal hernia History of irregular heartbeat History of pain when walking History of renal disease History of steroid therapy History of stress test Hoarseness Hyperlipidemia Injury of back Kidney stone Leg cramps Lightheadedness Obstructive sleep apnea MARIXA (obstructive sleep apnea) Overweight Patellar bursitis of right knee Peripheral vascular disease of extremity with claudication Pleural effusion Pneumonia Pre-syncope PVD (peripheral vascular disease) Rectus sheath hematoma Recurrent urinary tract infection Restless legs syndrome Right leg swelling Seasonal allergies Shortness of breath on exertion Sleep apnea Somatic dysfunction of pelvic region Urinary retention Walker as ambulation aid Wears dentures Wears glasses Wears hearing aid Home Medications ammonium lactate 12 % lotion 1 applic topical QD-BID PRN dry skin 02/06/18 [History Last Taken Unknown] handicap placcard #1 ea 09/28/19 [Rx Last Taken Unknown] ascorbate calcium (vitamin C) 500 mg tablet 500 mg PO DAILY Bone strength 05/03/20 [History Last Taken 03/09/22] coenzyme Q10 100 mg capsule (Co Q-10) 100 mg PO DAILY 05/03/20 [History Last Taken Unknown] cholecalciferol (vitamin D3) 100 mcg (4,000 unit) tablet 100 mcg PO DAILY 11/03/20 [History Last Taken Unknown] spacer #1 ea 01/12/21 [Rx Last Taken Unknown] aspirin 81 mg chewable tablet 81 mg PO [facility] heart [facility] 05/30/22 [History Last Taken Unknown] nitroglycerin 0.4 mg sublingual tablet (Nitrostat) 0.4 mg sublingual Q5-15M PRN chest pain #25 tabs 06/08/22 [Rx Last Taken Unknown] ipratropium 0.5 mg-albuterol 3 mg (2.5 mg base)/3 mL nebulization soln 3 ml inhalation 4X/DAY PRN PRN shortness of breath or wheezing #90 mL 08/03/22 [Rx Last Taken Unknown] furosemide 40 mg tablet 40 mg PO .COMPLEX #180 tabs 04/05/23 [Rx Last Taken Unknown] montelukast 10 mg tablet 10 mg PO QHS Respiratory #90 tabs 04/24/23 [Rx Last Taken Unknown] atorvastatin 40 mg tablet 40 mg PO QODAY cholesterol #45 tabs 05/23/23 [Rx Last Taken Unknown] carvedilol 25 mg tablet 25 mg PO BID #180 tabs 05/23/23 [Rx Last Taken Unknown] lancets #180 ea 07/18/23 [Rx Last Taken Unknown] amlodipine 10 mg tablet 10 mg PO DAILY This is a dose increase #90 tabs 08/28/23[Rx Last Taken Unknown] blood sugar diagnostic (Palm Ultra Test strips) #180 ea 09/16/23 [Rx Last Taken Unknown] budesonide-formoterol HFA 160 mcg-4.5 mcg/actuation aerosol inhaler (Symbicort) 2 puff inhalation BID #1 ea 10/23/23 [Rx Last Taken Unknown] ipratropium bromide 42 mcg (0.06 %) nasal spray 2 spray intranasal TID-QID PRN allergy symptoms #15 mL 10/23/23 [Rx Last Taken Unknown] pantoprazole 40 mg tablet,delayed release 40 mg PO DAILY reflux #90 tabs 11/19/23 [Rx Last Taken Unknown] ipratropium bromide 0.02 % solution for inhalation 2.5 ml inhalation Q6H PRN shortness of breath or wheezing #150 mL 12/06/23 [Rx Last Taken Unknown] apixaban 2.5 mg tablet (Eliquis) 2.5 mg PO BID #90 tabs 12/12/23 [Rx Last Taken Unknown] ferrous sulfate 325 mg (65 mg iron) tablet 325 mg PO Q OTHER DAY #30 tabs 12/16/23 [Rx Last Taken Unknown] loratadine 10 mg tablet 10 mg PO DAILY #90 tabs 12/16/23 [Rx Last Taken Unknown] hydralazine 100 mg tablet 100 mg PO BID #180 tabs 12/26/23 [Rx Last Taken Unknown] albuterol sulfate 90 mcg/actuation aerosol inhaler (Ventolin HFA) 2 inh inhalation Q4H PRN shortness of breath or wheezing #18 grams 01/01/24 [Rx Last Taken Unknown] ipratropium 0.5 mg-albuterol 3 mg (2.5 mg base)/3 mL nebulization soln 3 ml inhalation Q4H PRN PRN SOB &/OR WHEEZING #180 mL 01/01/24 [Rx Last Taken Unknown] magnesium citrate (OneLAX Magnesium Citrate oral solution) 300 ml PO ONCE #296 mL 01/02/24 [Rx Last Taken Unknown] pen needle, diabetic 31 gauge x 1/4 (1st Tier Unifine Pentips) #100 ea 01/15/24[Rx Last Taken Unknown] insulin glargine 100 unit/mL (3 mL) subcutaneous pen (Lantus Solostar U-100 Insulin) 18 unit subcut QAM 01/20/24 [History Last Taken Unknown] isosorbide mononitrate 30 mg tablet,extended release 24 hr 30 mg PO DAILY #90 tabs 01/22/24 [Rx Last Taken Unknown] Allergy/AdvReac Type Severity Reaction Status Date / Time cilostazol [From Pletal] Allergy Unknown Verified 01/20/24 13:28 felodipine Allergy Hives Verified 01/20/24 13:28 levofloxacin Allergy Hives Verified 01/20/24 13:28 Sulfa (Sulfonamide Allergy Unknown Verified 01/20/24 13:28 Antibiotics) Family History Father Diabetes Cancer Prostate cancer Mother Dementia Brother Parkinsons Brother Cancer Surgical History (Updated 01/20/24 @ 13:[address] Riaz Garrison MD) H/O aortic aneurysm repair (11/1998) H/O vascular surgery History of coronary artery stent placement (02/17/08) History of endarterectomy (07/2018) History of hernia repair History of left heart catheterization (03/2014) History of surgical procedure History of transurethral resection of prostate History of vascular surgery (08/2018) Social History (Updated 01/20/24 @ 13:[address] 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 Smoking Status: Former smoker quit date: 08/07/08 pack-years: 2 Tobacco: How many years used: 52 Electronic Cigarette Use: not used how long ago did patient quit smokin years ago alcohol intake: current alcohol intake frequency: holidays/special occasions only details: hx of alcohol abuse substance use type: does not use caffeine: No what type of physical activity do you participate in: other details: Nustep frequency: 5-6 times per week duration: 15-30 minutes/day seatbelt use: always do you feel safe at home: Yes ROS <DEBI Barraza - Last Filed: 01/26/24 15:54> ROS ED ROS Narrative Constitutional: Negative for fever, chills, malaise. CVS: Negative for palpitations, chest pain, syncope. Respiratory: Positive for shortness of breath, chronic cough. GI: Negative for abdominal pain, nausea, vomiting. EXAM <DEBI Barraza - Last Filed: 01/26/24 15:54> Physical Exam Narrative Exam Narrative: CONST: Patient sitting in no acute distress. EYES: Normal inspection. NECK: Normal inspection. RESP: Tachypneic around 24/minute, diminished lung sounds. CVS: Regular rate and rhythm, no murmur, no gallop. Back: Normal inspection, no CVA tenderness. SKIN: Color normal, no rash, warm, dry, intact. EXTREMITIES: Significant symmetric pitting edema both lower extremities, no warmth or skin changes. NEURO: Alert and answering questions appropriately. PSYCH: Normal affect. Const Vital Signs: 01/26/24 13:10 01/26/24 14:38 01/26/24 14:38 Temperature 98.3 F Temperature Source Oral Pulse Rate 63 69 Respiratory Rate 26 H 20 H Respiratory Effort Respiratory Depth Respiratory Pattern Tachypnea Blood Pressure 130/68 H Blood Pressure Mean 88 Pulse Ox 92 93 Oxygen Delivery Method Room Air Room Air 01/26/24 15:12 01/26/24 15:00 Temperature Temperature Source Pulse Rate 68 Respiratory Rate 30 H Respiratory Effort Short of Breath Respiratory Depth Normal Respiratory Pattern Tachypnea Blood Pressure 132/65 H Blood Pressure Mean 87 Pulse Ox 98 Oxygen Delivery Method Room Air Room Air <Dr. Elvin Milligan MD - Last Filed: 01/26/24 17:00> Physical Exam Const Vital Signs: 01/26/24 13:10 01/26/24 14:38 01/26/24 14:38 Temperature 98.3 F Temperature Source Oral Pulse Rate 63 69 Respiratory Rate 26 H 20 H Respiratory Effort Respiratory Depth Respiratory Pattern Tachypnea Blood Pressure 130/68 H Blood Pressure Mean 88 Pulse Ox 92 93 Oxygen Delivery Method Room Air Room Air 01/26/24 15:12 01/26/24 15:00 Temperature Temperature Source Pulse Rate 68 Respiratory Rate 30 H Respiratory Effort Short of Breath Respiratory Depth Normal Respiratory Pattern Tachypnea Blood Pressure 132/65 H Blood Pressure Mean 87 Pulse Ox 98 Oxygen Delivery Method Room Air Room Air [facility] <DEBI Barraza - Last Filed: 01/26/24 15:54> [facility] Narrative Medical decision making narrative: History gathered from: Patient and Differential: COPD, CHF, pneumonia, ACS Patient with longstanding history of dyspnea has had worsening dyspnea over the last few days. He appears well and nontoxic. He is mildly tachypneic but able to converse. There are some Tory rhonchi and diminished lung sounds. He has 3+bilateral lower extremity edema. Workup shows white count of 6.0. Hemoglobin of 7.6 is around baseline which runs between 7?8. He has normal electrolytes. Creatinine 2.30 is consistent with his CKD. Troponin is normal at 15. BNP 790 around baseline. CXR is read as bilateral pleural effusions and bilateral infiltrates; however I doubt he has acute pneumonia as he has had no change in his cough, no fever, no leukocytosis. Over the last month he is also taken an antibiotic and steroids x 2 without improvement. I suspect his dyspnea is multifactorial from underlying pulmonary process/COPD and congestive heart failure. Patient was able to ambulate about 10 feet and did not become hypoxic but became very dyspneic and tachypneic around 30 breaths/minute and had to sit down. He will need admitted for further workup. Case was discussed with the hospitalist. Lab Data Attestation: I reviewed the patient's lab results. Labs: Laboratory Results - last 24 hr 01/26/24 13:40 WBC 6.0 RBC 3.05 L Hgb 7.6 L Hct 26.2 L MCV 85.9 MCH 24.9 L MCHC 29.0 L RDW Std Deviation 53.1 H RDW Coeff of Justin 17.1 H Plt Count 257 MPV 10.5 Immature Gran % (Auto) 0.500 Neut % (Auto) 68.3 Lymph % (Auto) 18.5 L [place] % (Auto) 10.2 H Eos % (Auto) 2.2 Baso % (Auto) 0.3 Absolute Neuts (auto) 4.1 Absolute Lymphs (auto) 1.10 Nucleated RBC % 0 Sodium 137 Potassium 3.8 Chloride 98 Carbon Dioxide 32.0 Anion Gap 7 BUN 35 H Creatinine 2.30 H Estim Creat Clear Calc 26.32 Est GFR (MDRD) Af Amer 35 L Est GFR (MDRD) Non-Af 29 L BUN/Creatinine Ratio 15.2 Glucose 282 H Calcium 8.8 Troponin I High Sens 15 B-Natriuretic Peptide 790.9 H Radiography Diagnostic Testing: Clinical Impression(s) from Imaging Studies Chest X-Ray 01/26/24 14:10 IMPRESSION: There are bilateral pleural effusions. There are bilateral infiltrates. Electronically Signed: Bartolo Castillo MD at 14:24 EDT , <Dr. Elvin Milligan MD - Last Filed: 01/26/24 17:00> MDM History & Record Review Additional record(s) reviewed:: Prior outpatient record (PFTs) Lab Data Labs: Laboratory Results - last 24 hr 01/26/24 13:40 WBC 6.0 RBC 3.05 L Hgb 7.6 L Hct 26.2 L MCV 85.9 MCH 24.9 L MCHC 29.0 L RDW Std Deviation 53.1 H RDW Coeff of Justin 17.1 H Plt Count 257 MPV 10.5 Immature Gran % (Auto) 0.500 Neut % (Auto) 68.3 Lymph % (Auto) 18.5 L [place] % (Auto) 10.2 H Eos % (Auto) 2.2 Baso % (Auto) 0.3 Absolute Neuts (auto) 4.1 Absolute Lymphs (auto) 1.10 Nucleated RBC % 0 Sodium 137 Potassium 3.8 Chloride 98 Carbon Dioxide 32.0 Anion Gap 7 BUN 35 H Creatinine 2.30 H Estim Creat Clear Calc 26.32 Est GFR (MDRD) Af Amer 35 L Est GFR (MDRD) Non-Af 29 L BUN/Creatinine Ratio 15.2 Glucose 282 H Calcium 8.8 Troponin I High Sens 15 B-Natriuretic Peptide 790.9 H Radiography Diagnostic Testing: Clinical Impression(s) from Imaging Studies Chest X-Ray 01/26/24 14:10 IMPRESSION: There are bilateral pleural effusions. There are bilateral infiltrates. Electronically Signed: Bartolo Castillo MD at 14:24 EDT Reading Location ID and State: [facility] / [place] , Service support , Management Discussion w/another healthcare provider: Hospitalist Additional Tests and Interventions Additional Tests or Interventions: I have personally performed a face to face assessment of the patient and have reviewed the AIDA Note. I performed a substantive portion of the visit including all aspects of the following. My dumont findings include: History is progressively worsening dyspnea especially in the last several days. Patient can walk 10 feet or less before having to stop. No exertional chest discomfort. No cough or fevers. Seen here 1 month ago for same and declined admission, has followed up with PCP and pulmonary in the meantime and due to seenephrology this coming week, and cardiology in March. Was prescribed prednisone x 2 courses, neither helped. Antibiotics did not help. Feeling weak, more trouble getting up and around due to this and increased bilateral lower extremity edema, with 15 pound weight gain recently. Exam is expiratory rhonchi bilaterally and diffusely, high-pitched. Does not sound wet. No wheezes. Mildly tachypneic but in no respiratory distress and able to converse while at rest. No JVD. Heart regular systolic murmur present. 3+ bilateral lower extremity significant pitting edema that is symmetric. No sign of cellulitis. Medical Decison Making renal function, chest x-ray, EKG, duo nebulizer treatment, will walk without oxygen since he is on no home oxygen and likely admit. Concern is for interstitial lung disease, pulm fibrosis, vs. COPD-relateddyspnea, but he has not responded recently to typical outpatient COPD treatments. Last PFT in 2017 shows severe COPD pattern/defect. On my interpretation, 2 view CXR shows what appear to be chronic bibasilar abnormalities/airspace disease w/ small pleural effusion on left. Unchanged c/w prior. I do not think this represents acute pneumonia so holding off on further antibiotic therapy at this time. Other additions or changes: [None] Discharge Plan Triage Chief Complaint: Shortness of Breath ED Midlevel Provider: Aaliyah Collins ED Provider: Elvin Milligan Dx/Rx/DC Orders Clinical Impression: Acute respiratory insufficiency, Bilateral edema of lower extremity, Chronic anemia, Chronic kidney disease Primary Care Provider: Riaz Garrison What to do if you have Problems For any increased pain, shortness of breath, bleeding, nausea or vomiting, chest pain, or any unexpected problems, contact your Primary Care Provider. Call [facility] ([phone]) or report to the closest Emergency Room. Call 911 if necessary. 01/26/24 1554 <Electronically signed by Aaliyah CARRERA> Cosigner Signature (if applicable): 01/26/24 1700 <Electronically signed by Elvin Milligan MD> CC: Dr. Riaz Garrison MD ~ Signed [facility] Work Phone: [phone]) 432-591103-21-2024 History of Present illness Narrative* Vipul Richard - 12/26/2023 1:19 PM EDT Last time saw pcp:. Not in chart Subjective: Patient presents to clinic c/o painful toenails. They state that the nails are especially painful with shoe gear and pressure. Patient states that nails 1-5 b/l are painful. Patient admits to being diabetic. No other pedal complaints at this time. Patient states no change in medications or medical history since last visit. Objective: Patient presents to clinic ambulating in [facility] Vasc: DP and PT pulses are nonpalpable bilateral. CFT is less than 5 seconds bilateral. Skin temperature is warm to cool proximal to distal bilateral. There is severe edema or varicosities noted. No calf pain Neuro: Protective sensation is absent to the foot and toes when tested with the 5.07 SWM bilateral.Vibratory sensation is absent at the hallux IPJ bilateral. The hallux is downgoing bilateral. Derm: Nails 1-5 b/l are painful, incurvated, discolored-yellow, thick, crumbly, dystrophic and withsubungal debris. Skin is of normal turgor, texture [...] left foot (I73.9) PAD (peripheral artery disease) ([facility]) (E11.42) Diabetic polyneuropathy associated with type 2 diabetes mellitus ([facility]) Plan: Patient was seen and evaluated. Nails 1-5 bilateral were debrided in length and thickness. Small bleed to left 3rd nail. Alejandro mijares Had long discussion regarding removal of toenail. He mentions recent vascular procedure but I have no recent results. Would not recommend removal based on last October. Patient was instructed on the continued importance of diabetic foot care along with proper diet andkeeping their blood sugar under control to prevent complications. Patient is to RTC in 3-4 months. Vipul Richard DPM * Lashanda Murillo RN - 12/26/2023 1:04 PM EDT Patient presents with: Left Foot - Established Patient, Follow Up, Diabetic Foot Check Right Foot - Established Patient, Follow Up, Diabetic Foot Check Patient presents for follow up diabetic foot exam. LYNDSEY 09/24/24 documented in this encounterUniversity [facility]03-21-[facility]24 Instructions* Patient Instructions* Vipul Richard - 12/26/2023 1:19 PM EDT Diabetes Foot Care Instructions When [...] it. Apply a bandage and wear a differentpair of shoes. Take Care of Your Toenails Cut toenails after bathing, when they are soft. Cut toenails straight across and smooth with a nail file. Avoid cutting into the corners of toes. Do not cut cuticles. If you have neuropathy (or decreased sensation in your feet) a instructor dramatic arts should always cut your toenails. Be Careful [...] make sure there are no foreign objects orrough areas. Avoid tight socks. Wear natural-fiber socks [...] Go to your health care provider or instructor dramatic arts to treat these conditions. documented in this encounterUniversity [facility]als [facility]03-20-2024 Discharge summary Author Elvin Milligan [facility] December 25, 2023 5:18am Note Date/Time December 25, 2023 2:4 4am [facility] Medical Records Department [address] [place] [address] Emergency Department Summary 12/25/23 MR#: [id number] Acct: [id number] Name: DESIREE AMES Rep #:[id number] : 1935 88 From: Elvin Milligan MD PCP: Dr. Riaz Garrison MD Status:REG ER Location: ED HPI History of Present Illness Chief Complaint: Shortness of Breath Informant: patient, spouse/S.O. and EMS Narrative Narrative: Patient presents with worse dyspnea on exertion than usual for this past day. He could not sleep tonight, and also has been constipated for the last 2 days, feeling like he needs to have a bowel movement but unable to push out more than just a very small piece of hard stool at a time without blood or melena, and forthese reasons called EMS for transport to the hospital. Patient states when asked how long he has been dyspnea, 3 years. When attempting to quantifyhow much worse he is, he states he chronically has cough, occasionally productive of either yellow or white/clear sputum which has been the case today,and he states today, he could only walk 27 feet before having to rest. When asked how far he can walk on a good day, he states 30-40 feet. He denies any chest discomfort, presyncope or syncope. He has had chronic asymmetric lower extremity swelling for couple months, he had vascular surgery on one of his iliacs in the left lower extremity recently, and had an ultrasound done at this facility that showed no DVT. He is on Eliquis because of chronic atrial fibrillation. He denies feeling any palpitations recently. He used albuterol 3times today by nebulizer machine which helped his breathing, when he was short of breath it seems like he was wheezing and it felt similar to his COPD. Is taking iron supplementation. [facility] Medical History (Updated 12/25/23 @ 05:[address] Elvin Milligan MD) (HFpEF) heart failure with preserved ejection fraction Abdominal aortic aneurysm (AAA) Acute cystitis with hematuria Allergic rhinitis Ambulates with cane Anemia Arthritis Asthma Asthma-COPD overlap syndrome Atherosclerotic heart disease of [place] coronary artery without angina pectoris Back pain BiPAP (biphasic positive airway pressure) dependence Cancer Carotid bruit Chest pain Chronic constipation Chronic cough Colon polyp Colonic mass COPD (chronic obstructive pulmonary disease) Coronary artery disease Daytime hypersomnia DDD (degenerative disc disease), lumbar Debility DM2 (diabetes mellitus, type 2) ALMEIDA (dyspnea on exertion) Dyslipidemia Easy bruising Essential (primary) hypertension Fatigue Former smoker Frequent hospital admissions Gastroesophageal reflux disease History of edema History of heart attack History of hiatal hernia History of irregular heartbeat History of pain when walking History of renal disease History of steroid therapy History of stress test Hoarseness Hyperlipidemia Injury of back Kidney stone Leg cramps Lightheadedness Obstructive sleep apnea MARIXA (obstructive sleep apnea) Overweight Patellar bursitis of right knee Peripheral vascular disease of extremity with claudication Pleural effusion Pneumonia Pre-syncope PVD (peripheral vascular disease) Rectus sheath hematoma Recurrent urinary tract infection Restless legs syndrome Right leg swelling Seasonal allergies Shortness of breath on exertion Sleep apnea Somatic dysfunction of pelvic region Walker as ambulation aid Wears dentures Wears glasses Wears hearing aid Home Medications ammonium lactate 12 % lotion 1 applic topical QD-BID PRN dry skin 02/06/18 [History Last Taken Unknown] handicap placcard #1 ea 09/28/19 [Rx Last Taken Unknown] ascorbate calcium (vitamin C) 500 mg tablet 500 mg PO DAILY Bone strength 05/03/20 [History Last Taken 03/09/22] coenzyme Q10 100 mg capsule (Co Q-10) 100 mg PO DAILY 05/03/20 [History Last Taken Unknown] cholecalciferol (vitamin D3) 100 mcg (4,000 unit) tablet 100 mcg PO DAILY 11/03/20 [History Last Taken Unknown] spacer #1 ea 01/12/21 [Rx Last Taken Unknown] aspirin 81 mg chewable tablet 81 mg PO QHS heart health 05/30/22 [History Last Taken Unknown] nitroglycerin 0.4 mg sublingual tablet (Nitrostat) 0.4 mg sublingual Q5-15M PRN chest pain #25 tabs 06/08/22 [Rx Last Taken Unknown] ipratropium 0.5 mg-albuterol 3 mg (2.5 mg base)/3 mL nebulization soln 3 ml inhalation 4X/DAY PRN PRN shortness of breath or wheezing #90 mL 08/03/22 [Rx Last Taken Unknown] ropinirole 1 mg tablet 1 mg PO QHS #60 tabs 10/18/22 [Rx Last Taken Unknown] furosemide 40 mg tablet 40 mg PO .COMPLEX #180 tabs 04/05/23 [Rx Last Taken Unknown] montelukast 10 mg tablet 10 mg PO QHS Respiratory #90 tabs 04/24/23 [Rx Last Taken Unknown] atorvastatin 40 mg tablet 40 mg PO QODAY cholesterol #45 tabs 05/23/23 [Rx Last Taken Unknown] carvedilol 25 mg tablet 25 mg PO BID #180 tabs 05/23/23 [Rx Last Taken Unknown] dapagliflozin propanediol 10 mg tablet (Farxiga) 10 mg PO DAILY #90 tabs 07/09/23 [Rx Last Taken Unknown] lancets #180 ea 07/18/23 [Rx Last Taken Unknown] isosorbide mononitrate 30 mg tablet,extended release 24 hr 30 mg PO DAILY #90 tabs 07/24/23 [Rx Last Taken Unknown] amlodipine 10 mg tablet 10 mg PO DAILY This is a dose increase #90 tabs 08/28/23[Rx Last Taken Unknown] spironolactone 25 mg tablet 25 mg PO DAILY 09/12/23 [History Last Taken Unknown] meclizine 25 mg tablet 25 mg PO BID PRN vertigo #60 tabs 09/13/23 [Rx Last Taken Unknown] blood sugar diagnostic ([employer] Ultra Test strips) #180 ea 09/16/23 [Rx Last Taken Unknown] pen needle, diabetic 31 gauge x 1/4 (1st Tier Unifine Pentips) #100 ea 09/16/23[Rx Last Taken Unknown] albuterol sulfate 90 mcg/actuation aerosol inhaler (Ventolin HFA) 2 inh inhalation Q4H PRN shortness of breath or wheezing #18 grams 10/23/23 [Rx Last Taken Unknown] budesonide-formoterol HFA 160 mcg-4.5 mcg/actuation aerosol inhaler (Symbicort) 2 puff inhalation BID #1 ea 10/23/23 [Rx Last Taken Unknown] doxylamin 12.5 mg-PSE 10 mg-DM 20 mg-acetaminophen 650 mg oral pwdr pk ([place] Plus Cold-Flu) 1 packet PO Q4H PRN 10/23/23 [History Last Taken Unknown] ipratropium bromide 42 mcg (0.06 %) nasal spray 2 spray intranasal TID-QID PRN allergy symptoms #15 mL 10/23/23 [Rx Last Taken Unknown] hydralazine 100 mg tablet See Rx Instructions .Route .COMPLEX #360 tabs 11/06/23[Rx Last Taken Unknown] insulin glargine 100 unit/mL (3 mL) subcutaneous pen (Lantus Solostar U-100 Insulin) 15 unit (0.15 mL) subcut QAM #40 mL 11/19/23 [Rx Last Taken Unknown] pantoprazole 40 mg tablet,delayed release 40 mg PO DAILY reflux #90 tabs 11/19/23 [Rx Last Taken Unknown] ipratropium bromide 0.02 % solution for inhalation 2.5 ml inhalation Q6H PRN shortness of breath or wheezing #150 mL 12/06/23 [Rx Last Taken Unknown] apixaban 2.5 mg tablet (Eliquis) 2.5 mg PO BID #90 tabs 12/12/23 [Rx Last Taken Unknown] ferrous sulfate 325 mg (65 mg iron) tablet 325 mg PO Q OTHER DAY #30 tabs 12/16/23 [Rx Last Taken Unknown] loratadine 10 mg tablet 10 mg PO DAILY #90 tabs 12/16/23 [Rx Last Taken Unknown] albuterol sulfate 2.5 mg/3 mL (0.083 %) solution for nebulization 2.5 mg (3 mL) inhalation Q4H PRN Sob &/Or Wheezing #180 mL 12/18/23 [Rx Last Taken Unknown] azithromycin 250 mg tablet 250 mg PO DAILY #4 TABLETS 12/25/23 [Rx Last Taken Unknown] prednisone 20 mg tablet 20 mg PO DAILY #4 TABLETS 12/25/23 [Rx Last Taken Unknown] Allergy/AdvReac Type Severity Reaction Status Date / Time cilostazol [From Pletal] Allergy Unknown Verified 12/25/23 02:02 felodipine Allergy Hives Verified 12/25/23 02:02 levofloxacin Allergy Hives Verified 12/25/23 02:02 Sulfa (Sulfonamide Allergy Unknown Verified 12/25/23 02:02 Antibiotics) Family History Father Diabetes Cancer Prostate cancer Mother Dementia Brother Parkinsons Brother Cancer Surgical History H/O aortic aneurysm repair (11/1998) History of coronary artery stent placement (02/17/08) History of endarterectomy (07/2018) History of hernia repair History of left heart catheterization (03/2014) History of surgical procedure History of transurethral resection of prostate History of vascular surgery (08/2018) Social History household members: spouse 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 status: 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 Smoking Status: Former smoker quit date: 08/07/08 pack-years: 2 Tobacco: How many years used: 52 Electronic Cigarette Use: not used how long ago did patient quit smokin years ago alcohol intake: current alcohol intake frequency: holidays/special occasions only details: hx of alcohol abuse substance use type: does not use caffeine: No what type of physical activity do you participate in: other details: Nustep frequency: 5-6 times per week duration: 15-30 minutes/day seatbelt use: always do you feel safe at home: Yes ROS ROS ED Constitutional Constitutional ED: Denies chills or fever(s) Eyes Eyes: Denies change in vision or diplopia ENT ENT ED: Denies rhinorrhea or sore throat Cardiovascular Cardiovascular: Reports edema; Denies chest pain, orthopnea, palpitations or paroxysmal nocturnal dyspnea Respiratory/Chest Respiratory/Chest: Reports cough, dyspnea, dyspnea on exertion, sputum and wheezing; Denies orthopnea or paroxysmal nocturnal dyspnea Gastrointestinal Gastrointestinal: Reports constipation; Denies abdominal pain, diarrhea, nausea or vomiting Genitourinary Genitourinary ED: Denies dysuria or hematuria Musculoskeletal Musculoskeletal: Denies back pain or neck pain Integumentary Denies abscess or rash Neurologic Neurologic: Denies headache(s), paresthesias or weakness Psychiatric Psychiatric: Denies suicidal ideation or suicidal thoughts EXAM Physical Exam Const Vital Signs: 12/25/23 02:02 12/25/23 02:49 12/25/23 04:02 Temperature 98.2 F Temperature Source Temporal Pulse Rate 69 78 71 Respiratory Rate 24 H 27 H 18 Respiratory Effort Respiratory Depth Respiratory Pattern Blood Pressure 152/72 H 149/109 H Blood Pressure Mean 98 122 Pulse Ox 91 95 Oxygen Delivery Method Room Air Room Air 12/25/23 04:10 Temperature Temperature Source Pulse Rate Respiratory Rate Respiratory Effort Normal Non-Labored Respiratory Depth Normal Respiratory Pattern Normal Blood Pressure Blood Pressure Mean Pulse Ox Oxygen Delivery Method Room Air Positive well nourished and well developed General Appearance ED: well developed and NAD HEENT Reports moist mucous membranes normocephalic and atraumatic Eyes PERRL and EOMs intact bilaterally Neck full ROM, supple and no JVD Resp normal respiratory effort and clear to auscultation bilaterally Resp Narrative: Diminished throughout but clear. Speaking in full sentences. Cardio no murmurs Rate: Negative for tachycardic Rhythm: abnormal rhythm irregularly irregular GI non-tender and non-distended GI Narrative: On CLAUDIO, no tenderness, no blood, no melena. No palpable hard stool, just trace of light brown stool. Auscultation: normoactive bowel sounds Palpation: soft Back/Spine no CVA tenderness General Back: other FROM Extremity normal to inspection Extremity Narrative: No calf tenderness. No other tenderness or cellulitis. General Extremety ED: Yes edema; Negative for pulses abnormal or tenderness General Extremity: edema right lower extremity mild and left lower extremity moderate; Negative for pulses abnormal Neuro oriented x3, CN's II-XII intact bilaterally and no sensory deficits noted Sensorium / Orientation: awake and alert Motor Exam: strength 5/5 throughout Psych mental status grossly normal Skin no rashes or lesions noted and no wounds MDM MDM MDM Narrative Medical decision making narrative: Patient's symptoms are mostly consistent with a COPD exacerbation. A 2 view x- ray was obtained and on my interpretation, it shows patchy pneumonia versus increased COPD scarring. Radiology favors pneumonia I read the interpretation. His vital signs are normal for mild hypertension. Separately, he was amenable to a soapsuds enema which resulted in a large amount of bowel movement and he felt much better and actually felt like he breathes much better just after this although a duo nebulizer helped as well. He ambulated down the espinoza, he said hewent about as far as he usually does before he starts feeling dyspneic. He wentdown to 89% while he was walking. When he came back to the room and put him on the monitor he was at 83-84% very briefly until he came up to 90 and he felt much better. No chest discomfort lightheadedness or other symptoms. I offered admission but he declines and really wants to go home. He and agree that this is his baseline as far as how far he can walk without having to rest and get dyspneic. We discussed reasons to return I do not think he needs further emergent workup. I am only going to put him on prednisone 20 mg a day for 5 days given his diabetes and already existing edema in his legs. He is on furosemide which he should continue. I am going to put him on azithromycin given the patchy nature may be an atypical infection if bacterial. Advise closeoutpatient follow- up and we discussed reasons to return History & Record Review Discussion w/independent historian: EMS personnel, Patient, Family ([id number]) and Significant other Additional record(s) reviewed:: Prior outpatient record (Echocardiogram normal LV systolic function and EF, 05/2023. BLE venous ultrasound last month.) Radiography Diagnostic Testing: Clinical Impression(s) from Imaging Studies Chest X-Ray 12/25/23 02:37 IMPRESSION: Patchy opacities bilaterally which raise concern for pneumonia are noted to involve the mid to lower lungs. Electronically Signed: Ba Benoit MD at 4:08 EDT , Rhythm Strip Rhythm Strip: A-fib Rate: 65 Ectopy: None Discharge Plan Triage Chief Complaint: Shortness of Breath ED Provider: Elvin Milligan Dx/Rx/DC Orders Clinical Impression: Atrial fibrillation with controlled ventricular rate, Acute constipation, Acuteexacerbation of chronic obstructive pulmonary disease (COPD), Pneumonia Instructions: ED COPD Flare Prescriptions: New azithromycin [azithromycin] 250 mg tablet 250 mg PO DAILY Qty: 4 0RF prednisone 20 mg tablet 20 mg PO DAILY Qty: 4 0RF No Action ammonium lactate 12 % lotion 1 applic TOPICAL QD-BID PRN (Reason: dry skin ) (DME) handicap placcard Qty: 1 0RF Rx Instructions: Lifetime: debility coenzyme Q10 [Co Q-10] 100 mg capsule 100 mg PO DAILY ascorbate calcium (vitamin C) 500 mg tablet 500 mg PO DAILY cholecalciferol (vitamin D3) 100 mcg (4,000 unit) tablet 100 mcg (4,000 unit) tablet 100 mcg PO DAILY (DME) spacer See Rx Instructions .ROUTE .MEDSUPPLY Qty: 1 0RF Rx Instructions: As directed ropinirole 1 mg tablet 1 mg PO QHS Qty: 60 5RF Rx Instructions: administer 1-3 hours before bedtime [place] Plus Cold-Flu 12.5-10-20-650 mg powder in packet 1 packet PO Q4H PRN Rx Instructions: DNExceed 5 doses/24h albuterol sulfate [Ventolin HFA] 90 mcg/actuation HFA aerosol inhaler 2 inh INHALATION Q4H PRN (Reason: shortness of breath or wheezing) Qty: 18 6RF ipratropium bromide 42 mcg (0.06 %) spray,non-aerosol 2 spray INTRANASAL TID-QID PRN (Reason: allergy symptoms) Qty: 15 6RF Rx Instructions: nasal drip - administer into each nostril; wait 30 seconds between sprays budesonide-formoterol [Symbicort] 160-4.5 mcg/actuation HFA aerosol inhaler 2 puff inhalation BID Qty: 1 3RF Rx Instructions: administer with spacer, rinse mouth after each use meclizine 25 mg tablet 25 mg PO BID PRN (Reason: vertigo) Qty: 60 0RF (DME) OneTouch Ultra Test Strip See Rx Instructions .Route Qty: 180 1RF Rx Instructions: Check twice a day. (DME) pen needle, diabetic [1st Tier Unifine Pentips] 31 gauge x 1/4 needle See Rx Instructions .Route Qty: 100 0RF Rx Instructions: daily (DME) lancets Misc See Rx Instructions .Route Qty: 180 1RF Rx Instructions: twice daily Eliquis 2.5 mg tablet 2.5 mg PO BID Qty: 90 1RF ferrous sulfate 325 mg (65 mg iron) tablet 325 mg PO Q OTHER DAY Qty: 30 1RF aspirin 81 mg tablet,chewable 81 mg PO QHS Patient Comments: antiplatelet spironolactone 25 mg tablet 25 mg PO DAILY Patient Comments: TAKE 1 TABLET BY MOUTH DAILY. THIS IS A DOSE INCREASE nitroglycerin [Nitrostat] 0.4 mg tablet, sublingual 0.4 mg SUBLINGUAL Q5-15M PRN (Reason: chest pain) Qty: 25 2RF ipratropium-albuterol 0.5 mg-3 mg(2.5 mg base)/3 mL solution for nebulization 3 ml inhalation 4X/DAY PRN PRN (Reason: shortness of breath or wheezing) Qty: 90 6RF furosemide 40 mg tablet 40 mg PO .COMPLEX Qty: 180 3RF Rx Instructions: 40 mg orally daily. Take 40 mg BID if weight > 190lbs; montelukast 10 mg tablet 10 mg PO QHS Qty: 90 3RF carvedilol 25 mg tablet 25 mg PO BID Qty: 180 3RF Rx Instructions: must administer with a meal/food atorvastatin 40 mg tablet 40 mg PO QODAY Qty: 45 3RF Farxiga 10 mg tablet 10 mg PO DAILY Qty: 90 0RF isosorbide mononitrate 30 mg tablet extended release 24 hr 30 mg PO DAILY Qty: 90 1RF amlodipine 10 mg tablet 10 mg PO DAILY Qty: 90 3RF hydralazine 100 mg tablet See Rx Instructions .ROUTE .COMPLEX Qty: 360 3RF Dose Instruction: TAKE 1 TABLET BY MOUTH THREE TIMES DAILY Rx Instructions: TAKE 1 TABLET BY MOUTH THREE TIMES DAILY pantoprazole 40 mg tablet,delayed release (DR/EC) 40 mg PO DAILY Qty: 90 1RF insulin glargine [Lantus Solostar U-100 Insulin] 100 unit/mL (3 mL) insulin pen 15 unit subcut QAM Qty: 40 1RF ipratropium bromide 0.02 % solution 2.5 ml inhalation Q6H PRN (Reason: shortness of breath or wheezing) Qty: 150 11RF loratadine 10 mg tablet 10 mg PO DAILY Qty: 90 0RF albuterol sulfate 2.5 mg /3 mL (0.083 %) solution for nebulization 2.5 mg inhalation Q4H PRN (Reason: Sob &/Or Wheezing) Qty: 180 11RF Primary Care Provider: Riaz Garrison Referrals: Riaz Garrison MD [Primary Care Provider] - 3-5 Days Activity Restrictions/Additional Instructions: Since you received doses in the emergency room of both medications, you may start the prescriptions morning of 12/26/2023 Disposition Disposition: Home, Self Care What to do if you have Problems For any increased pain, shortness of breath, bleeding, nausea or vomiting, chestpain, or any unexpected problems, contact your Primary Care Provider. Call [facility] ([phone]) or report to the closest Emergency Room. Call 911 if necessary. 12/25/2318 <Electronically signed by Elvin Milligan MD> Cosigner Signature (if applicable): CC: Dr. Riaz Garrison MD ~ Signed [facility] Work Phone: [phone]) 715-672303-07-2024 History of Present illness Narrative* Rene Zapata MD - 12/12/2023 9:49 AM EST Images from the original note were not included. Surgery/Procedure Date: 11/12/2023 Surgeon(s)/Proceduralist(s) and Medical Insurance Coder(s): Surgeon(s) and Role: * Rene Zapata MD - Primary * Oscar Sifuentes MD - Resident - Assisting Procedure(s): Left ileofemoral endarterectomy and bovine patch profundaplasty Left lower extremity angiogram Intraoperative duplex ultrasound of patch repair [facility] VISIT Desiree Ames [id number] HPI: Mr. Ames is a 88 year old male seen [...] 2d) THROMBOENDARTERECTOMY,W/ PATCH GRAFT; ILIOFEMORAL (Left) Rene Zapata MD; Oscar Sifuentes MD - Posted 09/06/2023 (3mo) ANGIOGRAM EXTREMITY UNILATERAL RADIOLOGICAL (Left) Rene Zapata MD - Posted MEDICATIONS: senna-docusate (SENNA-S) 8.6-50 [...] 10 mg by mouth daily with breakfast. 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 Hilliard. Coronary atherosclerosis of unspecified type of vessel, [place] or graft 06/13/2005 Diverticulitis of colon (without [...] MAJOR SURGERY 1998 With inguinal hernia repair BRNCHSC INCL FLUOR GDNCE DX W/CELL WASHG SPX [...] Non-labored on RA Coronary: Regular rate, no KENAN or JVD Extremities: Normal range of motion, trace bilateral lower extremity edema no wounds Vascular: Palpable left femoral, biphasic left DP PT Incision: clean, dry, incision intact. No s/s of acute infection or hematoma. DIAGNOSTIC TESTS REVIEWED FOR TODAY'S VISIT: Most recent labs and imaging results Assessment/Plan Desiree Ames is a 88 year old male now [...] Staff 12/12/2023 With PVRs documented in this encounterUniversity Hospitals [facility]02-19-2024 NoteHNO ID: [id number] Author: RENE ZAPATA MD Service: ? Author Type: Physician Type: Progress Notes Filed: 11/25/2023 17:50 Note Text: Surgery/Procedure Date: 11/12/2023 Surgeon(s)/Proceduralist(s) and Medical Insurance Coder(s): Surgeon(s) and Role: * Rene Zapata MD - Primary * Oscar Sifuentes MD - Resident - Assisting Procedure(s): Left ileofemoral endarterectomy and bovine patch profundaplasty Left lower extremity angiogram Intraoperative duplex ultrasound of patch repair [facility] VISIT Desiree Ames [phone] HPI: Mr. Ames is a 88 year old male seen [...] 6d) THROMBOENDARTERECTOMY,W/ PATCH GRAFT; ILIOFEMORAL (Left) Rene Zapata MD; Oscar Sifuentes MD - Posted 09/06/2023 (11w, 3d) ANGIOGRAM EXTREMITY UNILATERAL RADIOLOGICAL (Left) Rene Zapata MD - Posted MEDICATIONS: senna-docusate (SENNA-S) 8.6-50 [...] rupture repaired 1998 Abnormal ankle brachial index (MARILEE) 10/18/2023 Adjustment disorder with depres (more content not included)...[facility]02-19-[facility] History of Present illness Narrative* Rene Zapata MD - 11/25/2023 5:39 PM EST Images from the original note were not included. Surgery/Procedure Date: 11/12/2023 Surgeon(s)/Proceduralist(s) and Medical Insurance Coder(s): Surgeon(s) and Role: * Rene Zapata MD - Primary * Oscar Sifuentes MD - Resident - Assisting Procedure(s): Left ileofemoral endarterectomy and bovine patch profundaplasty Left lower extremity angiogram Intraoperative duplex ultrasound of patch repair [facility] VISIT Desiree Ames [id number] HPI: Mr. Ames is a 88 year old male seen in clinic today for follow up s/p left iliofemoral reconstruction 2 weeks ago. States that the pain in his left foot has resolved. Occasionally has pain withambulation which sounds like his neuropathy. He denies any rest pain at this time. His incision is healing well no erythema tenderness or drainage with skin edges well-approximated. I am very happy with his postoperative waveforms as documented on his PVRs from 11/13/2023. Past Vascular Surgeries: Recent Surgeries this specialty 11/12/2023 (1w, 6d) THROMBOENDARTERECTOMY,W/ PATCH GRAFT; ILIOFEMORAL (Left) Rene Zapata MD; Oscar Sifuentes MD - Posted 09/06/2023 (11w, 3d) ANGIOGRAM EXTREMITY UNILATERAL RADIOLOGICAL (Left) Rene Zapata MD - Posted MEDICATIONS: senna-docusate (SENNA-S) 8.6-50 [...] 10 mg by mouth daily with breakfast. 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 Hilliard. Coronary atherosclerosis of unspecified type of vessel, [place] or graft 06/13/2005 Diverticulitis of colon (without [...] MAJOR SURGERY 1998 With inguinal hernia repair [facility] INCL FLUOR GDNCE DX W/CELL WASHG [...] Non-labored on RA Coronary: Regular rate, no KENAN or JVD Abdomen: Non-tender, Non-distended Extremities: Normal range of motion, slight edema to the left foot with erythema improving at the toes Neurologic: Awake, alert and oriented. Normal and symmetrical M/S function Vascular: Vascular: 2+ Pulse left femoral, biphasic left PT and monophasic DP Incision: clean, dry, incision intact. No s/s of acute infection or hematoma. Assessment/Plan Desiree Ames is a 88 year old male now s/p left iliofemoral reconstruction with resolution of left lower extremity rest pain. Incision healing well without obvious complication. - Continue cardiovascular risk factor modification with blood pressure control and asa/statin therapy as tolerated at the direction of Riaz Garrison MD - Follow up in 2-4 weeks at Margaret Zapata MD Vascular Surgery Staff 11/25/2023 documented in this encounterUniversity Hospitals [facility]02-16-2024 Miscellaneous Notes* Telephone Encounter - Jessica Bentley LPN - 11/22/2023 10:02 AM EST Patient notified per below. Jessica Bentley LPN November 22, 2023 10:02 AM * Telephone Encounter - Bijal Zee APRN.MANAGER VEHICLE - 11/22/2023 9:22 AM EST Swelling following surgery is really very common, [...] can tolerate it He is seeing Dr. Zapata on Saturday, so he can take a look and discuss further as well, and Dr. Zapata is software sales consultant this , so if there are any concerns over the weekend, pt can call the officeand they will put him in touch with him. Thanks, Bijal Zee APRN.MANAGER VEHICLE * Telephone Encounter - Jessica Bentley LPN - 11/22/2023 8:44 AM EST Post Note: Patient calling in requesting return [...] medical facility. Patient states he lives in [place]. This Nurse advised patient to go to the closest hospital where someone can have eyes on him and someone look at his foot and proper evaluation/assessment and diagnostics can be done. This can't be done over the phone. Patient states that he will just wait until his upcoming appointment. Jessica Bentley LPN November 21, 2023 4:51 PM documented in this encounterUniversity Hospitals [facility]02-09-2024 NoteHNO ID: [id number] Author: MARY RIVERA RN Service: Care Management Author Type: Registered Nurse Type: Care Mgt Progress Note Filed: 11/15/2023 12:25 Note Text: CARE MANAGEMENT DISCHARGE NOTE SERVICE DATE: November 15, 2023 SERVICE TIME: 12:25 PM Admission Date: 11/09/2023 LOS: 6 days Discharge Arrangement Discharge Arrangement: Home with Self Care Services Arranged Medical Services: Other: See Comment (n/a) Provider Name: Dr. Garrison Caregiver Assessment Caregiver is ready, willing and able to meet the patient's needs as recommended by the inter-professional team: No Caregiver needed Transportation Arrangements Transportation Arrangements: Car Destination: home Handoff Communication: Handoff to: Primary Care Physician Primary Care Physician Name/Phone: Dr. Riaz Garrison [phone] Additional Information: The patient will dc to home today with family to transport. He will follow up with PCP outpatient. He has no [facility] needs. SIGNATURE: Mary Rivera RN PATIENT NAME: Desiree Ames DATE: November 15, 2023 TIME: 12:25 PM CONTACT #: [phone]02-[facility]24 NoteHNO ID: [id number] Author: NIKOLAI DIALLO PA-C Service: Vascular Surgery Author Type: Physician Medical Insurance Coder Type: Progress Notes Filed: 11/15/2023 11:25 Note Text: Vascular Surgery Progress Note SERVICE DATE: 11/15/2023 Vascular Surgery Service Pager: For questions or concerns Mon-Fri 6a-5p please page [phone]. After 5pm and on Weekends and Holidays, [...] (Temporal) Resp 18 Ht 172.7 cm (5' 8) Wt 89.6 kg (197 lb 8.5 oz) SpO2 97% BMI 30.03 kg/m? 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 PAD (peripheral artery disease) ([facility]) 06/11/2018 Priority: A Overview Note: Added automatically from request for surgery [id number] Coronary artery disease involving [place] coronary artery of [place] heart without angina pectoris 06/13/2005 Priority: B Hypertension 06/12/2005 Priority: E History of CAD (coronary artery disease) 11/11/2023 Preoperative clearance 10/30/2023 Heart failure with preser (more content not included)...[facility] NoteHNO ID: [id number] Author: MARY RIVERA RN Service: Care Management [...] discharge. SIGNATURE: Mary Rivera RN PATIENT NAME: Desiree Ames DATE: November 15, 2023 TIME: 10:46 AM PAGER/CONTACT #: [phone] 11-14-2023 NoteHNO ID: [id number] Author: RENE ZAPATA MD Service: General Surgery Author Type: Resident Type: Progress Notes Filed: 11/14/2023 16:55 Note Text: Attestation signed by Rene Zapata MD at 11/14/2023 4:55 PM Attending Note I discussed with resident. The patient was not examined by the attending. I reviewed the resident's note. I agree with the resident's assessment and plan unless otherwise noted. PVRs reviewed Following Dc 1 week wound check at [facility] 4-6 weeks follow up at [place] with PVRs and LLE arterial duplex Signature: Rene Zapata MD Date: 11/14/2023. Time: 4:54 PM Vascular Surgery Progress Note SERVICE DATE: 11/14/2023 Vascular Surgery Service Pager: For questions or concerns Mon-Fri 6a-5p please page [phone]. After 5pm and on Weekends and Holidays, please page [phone] if in ICU or [phone] if on RNF. Subjective SUBJECTIVE: Pt seen in the AM. NAOE. VSS. Patient doing well on exam. Signals present in L PT and DP. Diet: DIET CARBOHYDRATE CONTROLLED Objective OBJECTIVE: Vitals: Temp (24hrs), Av.5 ?C (97.7 ?F), Min:36.3 ?C (97.3 ?F), Max:36.8 ?C (98.2 ?F) BP 137/62 Pulse 74 Temp 36.8 ?C (98.2 ?F) Resp 22 Ht 172.7 cm (5' 8) Wt 89.6 kg (197 lb 8.5 oz) SpO2 97% BMI 30.03 kg/m? O2 Therapy: Room Air IANDO: Date 11/13/23699 - 11/14/2359 11/14/23699 - 11/15/23 0659 Shift 1705-2689 1868-2231 9178-7421 24 Hour Total 8433-0749 4667-7908 6323-8409 24 Hour Total INTAKE PO 300 300 400 400 PO 300 300 400 400 Shift Total 300 300 400 400 OUTPUT Urine 225 442 279 0214 200 200 Void (ml) 150 700 850 200 200 Output ([REMOVED] Indwelling Urinary Catheter 11/12/[address] [facility] [place] 16 Fr 11/13/23 0902) 225 225 Shift Total 225 772 167 7289 200 200 Weight (kg) 89.6 89.6 89.6 [...] ORAL q 48 H ipratropium bromide 2 Quinby nasal spray (ATROVENT) 2 Quinby NASAL QID isosorbide mononitrate ER 30 mg [...] rate and rhythm ABDO (more content not included)...[facility]02-07-2024 Note HNO ID: [id number] Author: RONEY BRADLEY DO Service: General Surgery Author Type: Resident Type: Progress Notes Filed: 11/14/2023 13:28 Note Text: Vascular Surgery Progress Note SERVICE DATE: 11/13/2023 Vascular Surgery Service Pager: For questions or concerns Mon-Fri 6a-5p please page [phone]. After 5pm and on Weekends and Holidays, please page [phone] if in ICU or [phone] if on RNF. Subjective SUBJECTIVE: Stroke workup negative. Patient now speaking and alert and oriented. Pain improved. Tolerating below diet. Diet: DIET CARBOHYDRATE CONTROLLED Objective OBJECTIVE: Vitals: Temp (24hrs), Av.4 ?C (97.6 ?F), Min:36.3 ?C (97.3 ?F), Max:36.5 ?C (97.7 ?F) BP 122/63 Pulse 94 Temp 36.3 ?C (97.3 ?F) Resp 21 Ht 172.7 cm (5' 8) Wt 89.6 kg (197 lb 8.5 oz) SpO2 96% BMI 30.03 kg/m? O2 Therapy: Room Air IANDO: Date 11/12/23 1500 - 11/13/2365811/13/23 0700 - 11/14/23 0659 Shift 1380-0502 5510-4414 24 Hour Total 6544-1460 2546-6827 8552-3526 24 Hour Total INTAKE IV 2700 2700 Volume (mL) (lactated ringers iv infusion) 1500 1500 Volume (mL) (NaCl 0.9% iv infusion) 1200 1200 Blood Products 600 1350 Cell Saver Returned Volume 600 1000 Infusion Complete Volume (mL) (RBC Transfusion Instruction) 350 Shift Total 3300 4050 OUTPUT Urine 276 361 6633 225 225 OR Urine Output 600 Output ([REMOVED] Indwelling Urinary Catheter 11/12/[address] [facility] [place] 16 Fr 11/13/23 0902) 200 350 550 225 225 Blood 1100 1400 Estimated Blood loss 1100 1400 Shift Total 1956 069 2985 225 225 Weight (kg) 89.6 89.6 89.6 [...] ORAL q 48 H ipratropium bromide 2 Quinby nasal spray (ATROVENT) 2 Quinby NASAL QID isosorbide mononitrate ER 30 mg [...] Note: Added automatically from request for surgery [id number] Coronary artery disease involving [place] (more content not included)...[facility]02-07-2024 NoteHNO ID: [id number] Author: RENE ZAPATA MD Service: Vascular Surgery Author Type: Physician Type: Plan of Care Filed: 11/13/2023 10:38 Note Text: VASCULAR SURGERY PLAN OF CARE Patient Name: Desiree Ames 88M POD#1 from Left ileofemoral endarterectomy and [...] tomorrow Continue ASA/plavix Home PO meds Rene Zapata MD - Vascular Surgery Staff PATIENT NAME: Desiree Ames DATE: November 13, 2023 TIME: 10:36 AM PAGER/CONTACT #: [phone] NoteHNO ID: [id number] Author: SHITAL ORDOÑEZ RN Service: Care Management Author Type: Registered Nurse Type: Care Mgt Initial Assessment Filed: 11/13/2023 10:17 Note Text: CARE MANAGEMENT: ASSESSMENT AND DISCHARGE PLAN SERVICE DATE: November 13, 2023 SERVICE TIME: 10:11 AM PCP: Riaz Garrison MD Primary Contact: Extended Emergency Contact Information Primary Emergency Contact: CecilioAdy Address: [address] [place] [address] Mobile Relation: Spouse Secondary Emergency Contact: Danni hernandes Mobile Relation: Relative Admission Status: Inpatient Insurance Provider: [place] Discharge Planning requested by: Per Department Practice Potential Transition Plans To Be Determined;Home;Home Care Advance Directives Current Advance Directive: Health Care Power of Commercial Property Manager In Chart: Yes Up To Date and [...] General wellness, Be able to go home [place] Explained: [place] Given: No Reason Not Given: [...] (+) RX. Fills scripts at [facility] [place] but would like scripts delivered to the bedside at D/C. SIGNATURE: Shital Ordoñez RN PATIENT NAME: Desiree Ames DATE: November 13, 2023 TIME: 10:11 AM CONTACT #: [phone] NoteHNO ID: [id number] Author: TAMIA BACON DO Service: General Surgery [...] DO, PGY-4 General Surgery Resident 9:54 PM 11/12/2023[facility]02-06-2024 NoteHNO ID: [id number] Author: KHUSHBOO VELÁZQUEZ MD Service: Anesthesiology Author [...] complications SIGNATURE: Khushboo Velázquez MD PATIENT NAME: Desiree Ames DATE: November 12, 2023 TIME: 9:02 AM CSN: [id number] NoteHNO ID: [id number] Author: YOU AGUILAR APRN.CRNA Service: Anesthesiology Author Type: Nurse Dye Weigher Type: Anesthesia Procedure Notes Filed: 11/12/2023 09:01 Note Text: ANESTHESIOLOGY PROCEDURE NOTE Airway General Information Procedure Start Time/Medication Administration: 11/12/2023 8:26 AM Patient location during procedure: OR Timeout Performed Pre-procedure: timeout performed Consent Obtained: Yes Patient identity confirmed: arm band and patient Staffing ESTHETICIAN/SPA COORDINATOR: You Aguilar APRN.ESTHETICIAN/SPA COORDINATOR Indications and Patient Condition Indications for airway [...] approach: 1 Airway not difficult SIGNATURE: You Aguilar APRN.CRNA PATIENT NAME: Desiree Ames DATE: November 12, 2023 TIME: 9:00 AM CSN: [id number] NoteHNO ID: [id number] Author: NIKOLAI DIALLO PA-C Service: Vascular Surgery Author Type: Physician Medical Insurance Coder Type: Progress Notes Filed: 11/12/2023 08:54 Note Text: Vascular Surgery Progress Note SERVICE DATE: 11/12/2023 Vascular Surgery Service Pager: For questions or concerns Mon-Sat 6a-5p please page [phone]. After 5pm and on Weekends and Holidays, please page [phone] if in ICU or [phone] if on RNF. Subjective SUBJECTIVE: CC: PAD Today I am evaluating the patient re: PAD Patient seen and examined. No events documented overnight. Denies N/V/CP/SOB. L foot pain stable. In good spirits. at bedside with Dr. Zapata answering questions prior to OR. Diet: DIET NPO Objective OBJECTIVE: Vitals: Temp (24hrs), Av.4 ?C (97.5 ?F), Min:35.8 ?C (96.4 ?F), Max:36.8 ?C (98.3 ?F) BP 167/62 Pulse (!) 53 Temp (!) 35.8 ?C (96.4 ?F) (Temporal) Resp 16 Ht 172.7 cm (5' 8) Wt 89.6 kg (197 lb 8.5 oz) SpO2 95% BMI 30.03 kg/m? O2 Therapy: Room Air IANDO: Date 11/11/23699 - 11/12/23 0611/12/23699 - 11/13/23 0659 Shift 6984-2674 6353-9357 6672-2342 24 Hour Total 9651-1101 3944-0566 4074-1595 24 Hour Total INTAKE PO 360 360 [...] H [Held on Transfer] ipratropium bromide 2 Quinby nasal spray (ATROVENT) 2 Quinby NASAL QID [Held on Transfer] isosorbide mononitrate [...] thrombosis (HCC) 11/09/2023 PAD (peripheral artery disease) ([facility]) 06/11/2018 Priority: A Overview Note: Added automatically from request for surgery [id number] Coronary artery disease involving [place] coronary artery of [place] heart without angina pectoris 06/13/2005 Priority: B Hypertension 06/12/2005 Pr (more content not included)...[facility]02-05-2024 NoteHNO ID: [id number] Author: LEATHA ODOM RN Service: Nursing Author Type: Registered Nurse Type: Nursing Progress Note Filed: 11/11/2023 12:12 Note Text: Lexiscan nuclear stress test explained and questions answered.[facility]02-05-2024 NoteHNO ID: [id number] Author: SHAQUILLE GILL RT(R) Service: Nuclear Medicine [...] PATIENT PRESENTS WITH AN IMPLANTABLE OR ATTACHED AGRICULTURE SCIENCE TEACHER: No CREATININE: Creatinine Date Value Ref Range [...] No IV SITE: Inpatient - refer to [facility] documentation POST EXAM PIV STATUS: Left in for next appointment PROCEDURE TYPE: NM Stress: 13.6 mCi [id number] was administered IV for Rest Imaging at 945 by ms. 35.8 mCi [id number] was administered IV for Stress Imaging at 1135 by ty. ADMINISTRATION TIME: 945 PATIENT DISCHARGED TO: Patient taken to IP transport area for return to RNF/ICU/ED. A Diagnostic radioactive procedure has taken place, with no further precautions necessary other than routine body substance precautions. More information regarding radiation safety can be found using this link: [email or web address] SIGNATURE: RT Lul(R) PATIENT NAME: Desiree Ames DATE: November 11, 2023 TIME: 11:46 AM PAGER/CONTACT #:[facility]24 NoteHNO ID: [id number] Author: NIKOLAI DIALLO PA-C Service: Vascular Surgery Author Type: Physician Medical Insurance Coder Type: Progress Notes Filed: 11/11/2023 15:01 Note Text: Vascular Surgery Progress Note SERVICE DATE: 11/11/2023 Vascular Surgery Service Pager: For questions or concerns Mon-Fri 6a-5p please page [phone]. After 5pm and on Weekends and Holidays, [...] (Temporal) Resp 18 Ht 172.7 cm (5' 8) Wt 89.6 kg (197 lb 8.5 oz) SpO2 96% BMI 30.03 kg/m? O2 Therapy: Continuous Positive Airway Pressure IANDO: Date 11/10/23 07 - 11/11/23 0659 11/11/23 07 - 11/12/23 0659 Shift 1024-7310 2793-9852 2510-6073 24 Hour Total 9717-5855 3813-5116 8161-1014 24 Hour Total INTAKE Shift Total OUTPUT [...] ORAL q 48 H ipratropium bromide 2 Quinby nasal spray (ATROVENT) 2 Quinby NASAL QID isosorbide mononitrate ER 30 mg [...] FEA with iliac stenting planned with Dr. Zapata on 11/12 -Cardiology's risk stratification: Moderate -OK to proceed w/ OR -NPO/ IVF -Will check with Dr. Zapata on possibly holding Plavix SIGNATURE: Nikolai Diallo PA-C PATIENT NAME: Desiree Ames DATE: November 11, 2023 TIME: 7:51 AM Vascular Surgery Service Pager: For questions or concerns Mon-Fri 6a-5p please page [phone]. After 5pm and on Weekends and Holidays, please page [phone] if in ICU or [phone] if on RNF. Portions of my documentation were copied/ pasted from the notes of Dr. Valladares (more content not included)...[facility]12-07-2023 Hospital Discharge instructions Additional Instructions Date of Discharge: 09/12/23[facility] Work Phone: [phone]) 727-493512-07-2023 Discharge summary Author Rosa Collins [facility] September 12, 2023 5:38am Note Date/Time September 12, 2023 2 :33am [facility] Medical Records Department [address] [place] [address] Emergency Department Summary 09/12/23 MR#: [id number] Acct: [id number] Name: DESIREE AMES Rep #:[id number] : 1935 88 From: Rosa Collins MD PCP: Dr. Riaz Garrison MD Status:REG ER Location: ED HPI History of Present Illness Chief Complaint: Dizziness Informant: patient Onset/Context/Timing Onset: Today Context: Sudden Onset Narrative Narrative: Patient presents with sudden onset of dizziness with nausea. Patient states he had taken a shower and gone back to the family room. He was then walking to thekitchen to get something to eat when he suddenly got dizzy. He describes it as both a lightheaded and spinning sensation. He states he had to ramirez back to hischair before he fell. He states he was looking at a pattern in the carpet that was moving when he was not moving his head. He had nausea with some dry heaves. He reports a mild headache. Patient has a history of vascular disease. Last Saturday he had a procedure at [facility] trying to open some the blockages in his groin that were unsuccessful. [facility] Medical History (HFpEF) heart failure with preserved ejection fraction Abdominal aortic aneurysm (AAA) Acute cystitis with hematuria Allergic rhinitis Ambulates with cane Anemia Arthritis Asthma Asthma-COPD overlap syndrome Atherosclerotic heart disease of [place] coronary artery without angina pectoris Back pain BiPAP (biphasic positive airway pressure) dependence Cancer Carotid bruit Chest pain Chronic constipation Chronic cough Colon polyp Colonic mass COPD (chronic obstructive pulmonary disease) Coronary artery disease Daytime hypersomnia DDD (degenerative disc disease), lumbar Debility DM2 (diabetes mellitus, type 2) ALMEIDA (dyspnea on exertion) Dyslipidemia Easy bruising Essential (primary) hypertension Fatigue Former smoker Frequent hospital admissions Gastroesophageal reflux disease History of edema History of heart attack History of hiatal hernia History of irregular heartbeat History of pain when walking History of renal disease History of steroid therapy History of stress test Hoarseness Hyperlipidemia Injury of back Kidney stone Leg cramps Lightheadedness Obstructive sleep apnea MARIXA (obstructive sleep apnea) Overweight Patellar bursitis of right knee Peripheral vascular disease of extremity with claudication Pleural effusion Pneumonia Pre-syncope PVD (peripheral vascular disease) Rectus sheath hematoma Recurrent urinary tract infection Restless legs syndrome Right leg swelling Seasonal allergies Shortness of breath on exertion Sleep apnea Somatic dysfunction of pelvic region Walker as ambulation aid Wears dentures Wears glasses Wears hearing aid Home Medications ammonium lactate 12 % lotion 1 applic topical QD-BID PRN dry skin 02/06/18 [History Last Taken Unknown] handicap placcard #1 ea 09/28/19 [Rx Last Taken Unknown] ascorbate calcium (vitamin C) 500 mg tablet 500 mg PO DAILY Bone strength 05/03/20 [History Last Taken 03/09/22] coenzyme Q10 100 mg capsule (Co Q-10) 100 mg PO DAILY 05/03/20 [History Last Taken Unknown] cholecalciferol (vitamin D3) 100 mcg (4,000 unit) tablet 100 mcg PO DAILY 11/03/20 [History Last Taken Unknown] spacer #1 ea 01/12/21 [Rx Last Taken Unknown] albuterol sulfate 90 mcg/actuation aerosol inhaler (Ventolin HFA) 2 inh inhalation Q4H PRN shortness of breath or wheezing #18 grams 11/27/21 [Rx Last Taken Unknown] aspirin 81 mg chewable tablet 81 mg PO QHS heart health 05/30/22 [History Last Taken Unknown] nitroglycerin 0.4 mg sublingual tablet (Nitrostat) 0.4 mg sublingual Q5-15M PRN chest pain #25 tabs 06/08/22 [Rx Last Taken Unknown] ipratropium 0.5 mg-albuterol 3 mg (2.5 mg base)/3 mL nebulization soln 3 ml inhalation 4X/DAY PRN PRN shortness of breath or wheezing #90 mL 08/03/22 [Rx Last Taken Unknown] ropinirole 1 mg tablet 1 mg PO QHS #60 tabs 10/18/22 [Rx Last Taken Unknown] triamcinolone acetonide 55 mcg nasal spray aerosol (Nasacort) 2 spray intranasalDAILY PRN allergies 11/06/22 [History Last Taken Unknown] ipratropium bromide 42 mcg (0.06 %) nasal spray 2 spray intranasal TID-QID PRN allergy symptoms #15 mL 11/09/22 [Rx Last Taken Unknown] albuterol sulfate 2.5 mg/3 mL (0.083 %) solution for nebulization 2.5 mg (3 mL) inhalation Q4H PRN Sob &/Or Wheezing #180 mL 11/29/22 [Rx Last Taken Unknown] ipratropium bromide 0.02 % solution for inhalation 2.5 ml inhalation Q6H PRN shortness of breath or wheezing #150 mL 11/29/22 [Rx Last Taken Unknown] furosemide 40 mg tablet 40 mg PO .COMPLEX #180 tabs 04/05/23 [Rx Last Taken Unknown] montelukast 10 mg tablet 10 mg PO QHS Respiratory #90 tabs 04/24/23 [Rx Last Taken Unknown] docusate sodium 100 mg capsule 100 mg PO BID 05/06/23 [History Last Taken Unknown] ibuprofen 200 mg tablet 200 mg PO Q6H PRN fever or pain 05/06/23 [History Last Taken Unknown] blood sugar diagnostic (Palm Ultra Test strips) #180 ea 05/16/23 [Rx Last Taken Unknown] pantoprazole 40 mg tablet,delayed release 40 mg PO DAILY reflux #90 tabs 05/16/23 [Rx Last Taken Unknown] atorvastatin 40 mg tablet 40 mg PO QODAY cholesterol #45 tabs 05/23/23 [Rx Last Taken Unknown] carvedilol 25 mg tablet 25 mg PO BID #180 tabs 05/23/23 [Rx Last Taken Unknown] hydralazine 100 mg tablet 100 mg PO TID Disreguard previous RX: dose changed #360 tabs 06/07/23 [Rx Last Taken Unknown] dapagliflozin propanediol 10 mg tablet (Farxiga) 10 mg PO DAILY #90 tabs 07/09/23 [Rx Last Taken Unknown] insulin glargine 100 unit/mL (3 mL) subcutaneous pen (Lantus Solostar U-100 Insulin) 15 unit (0.15 mL) subcut QAM #15 mL 07/18/23 [Rx Last Taken Unknown] lancets #180 ea 07/18/23 [Rx Last Taken Unknown] isosorbide mononitrate 30 mg tablet,extended release 24 hr 30 mg PO DAILY #90 tabs 07/24/23 [Rx Last Taken Unknown] amlodipine 10 mg tablet 10 mg PO DAILY This is a dose increase #90 tabs 08/28/23[Rx Last Taken Unknown] loratadine 10 mg tablet 10 mg PO DAILY #90 tabs 09/04/23 [Rx Last Taken Unknown] spironolactone 25 mg tablet 25 mg PO DAILY 09/12/23 [History Last Taken Unknown] Allergy/AdvReac Type Severity Reaction Status Date / Time cilostazol [From Pletal] Allergy Unknown Verified 09/12/23 01:25 felodipine Allergy Hives Verified 09/12/23 01:25 levofloxacin Allergy Hives Verified 09/12/23 01:25 Sulfa (Sulfonamide Allergy Unknown Verified 09/12/23 01:25 Antibiotics) Family History Father Diabetes Cancer Prostate cancer Mother Dementia Brother Parkinsons Brother Cancer Surgical History H/O aortic aneurysm repair (11/1998) History of coronary artery stent placement (02/17/08) History of endarterectomy (07/2018) History of hernia repair History of left heart catheterization (03/2014) History of surgical procedure History of transurethral resection of prostate History of vascular surgery (08/2018) Social History household members: spouse 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 status: 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 Smoking Status: Former smoker quit date: 08/07/08 pack-years: 2 Tobacco: How many years used: 52 Electronic Cigarette Use: not used how long ago did patient quit smokin years ago alcohol intake: current alcohol intake frequency: holidays/special occasions only details: hx of alcohol abuse substance use type: does not use caffeine: No what type of physical activity do you participate in: other details: Nustep frequency: 5-6 times per week duration: 15-30 minutes/day seatbelt use: always do you feel safe at home: Yes ROS ROS ED Constitutional Constitutional ED: Denies fever(s) Eyes Eyes: Denies change in vision or discharge from eye(s) ENT ENT ED: Denies discharge from eye(s), rhinorrhea or sore throat Cardiovascular Cardiovascular: Denies chest pain or palpitations Respiratory/Chest Respiratory/Chest: Denies cough or dyspnea Gastrointestinal Gastrointestinal: Reports nausea and vomiting; Denies abdominal pain or diarrhea Genitourinary Genitourinary ED: Denies dysuria Musculoskeletal Musculoskeletal: Denies back pain or extremity pain Integumentary Denies Abrasions or rash Neurologic Neurologic: Reports headache(s) and weakness Psychiatric Psychiatric: Denies anxiety or depression Allergic/Immunologic Allergic/Immunologic ED: Denies lip swelling or urticaria EXAM Physical Exam Const Vital Signs: 09/12/23 01:18 09/12/23 01:33 09/12/23 01:30 Temperature 96.2 F L Temperature Source Temporal Pulse Rate 54 L 50 L Respiratory Rate 16 14 Blood Pressure 196/68 H 168/67 H Blood Pressure Mean 110 100 Pulse Ox 96 96 Oxygen Delivery Method Room Air Room Air Room Air 09/12/23 01:47 09/12/23 01:33 09/12/23 01:45 Temperature Temperature Source Pulse Rate 59 L 62 63 Respiratory Rate 16 12 12 Blood Pressure 178/67 H 172/68 H 171/80 H Blood Pressure Mean 104 102 110 Pulse Ox 94 96 95 Oxygen Delivery Method Room Air Room Air Room Air 09/12/23 02:00 09/12/23 02:15 09/12/23 02:30 Temperature Temperature Source Pulse Rate 63 60 57 L Respiratory Rate 22 H 17 17 Blood Pressure 166/64 H 179/61 H 181/68 H Blood Pressure Mean 98 100 105 Pulse Ox 95 95 94 Oxygen Delivery Method Room Air Room Air Room Air Positive well nourished and well developed General Appearance ED: well developed HEENT Reports moist mucous membranes Eyes EOMs intact bilaterally Chest Wall inspection of chest normal and palpation of chest normal Resp normal respiratory effort and clear to auscultation bilaterally Cardio regular rate and regular rhythm GI non-tender Palpation: soft Extremity normal to inspection Neuro Neuro Narrative: NIH equals 1 at the time of my exam, one-point for slight difficulty with finger-nose in the left arm only. Psych mental status grossly normal Skin no rashes or lesions noted MDM MDM MDM Narrative Medical decision making narrative: Prehospital EKG is appeared to show atrial fibrillation which patient I do not see has a history of. He also has a history of vascular disease with recent intervention. Patient was walking when he had sudden onset of dizziness and my initial concern was for central vertigo secondary to a stroke. Patient has no nystagmus on exam. In light of this stroke alert was initiated. History & Record Review Discussion w/independent historian: EMS personnel, Patient and Significant other Additional record(s) reviewed:: Prior ED visit and Prior labs Lab Data Attestation: I reviewed the patient's lab results. Labs: Laboratory Results - last 24 hr 09/12/23 01:40 WBC 7.0 RBC 3.29 L Hgb 8.8 L Hct 28.8 L MCV 87.5 MCH 26.7 L MCHC 30.6 L RDW Std Deviation 45.1 H RDW Coeff of Justin 14.1 Plt Count 313 MPV 10.3 Immature Gran % (Auto) 0.400 Neut % (Auto) 53.8 Lymph % (Auto) 25.5 [place] % (Auto) 14.9 H Eos % (Auto) 4.7 Baso % (Auto) 0.7 Absolute Neuts (auto) 3.7 Absolute Lymphs (auto) 1.78 Nucleated RBC % 0 PT 14.3 INR 1.1 APTT 31.3 Sodium 137 Potassium 3.9 Chloride 105 Carbon Dioxide 25.0 Anion Gap 7 BUN 39 H Creatinine 2.19 H Estim Creat Clear Calc 23.42 Est GFR (MDRD) Af Amer 37 L Est GFR (MDRD) Non-Af 31 L BUN/Creatinine Ratio 17.8 Glucose 135 H Calcium 9.3 Troponin I High Sens 19 Radiography Chest X-Ray - ED: 1 View, Read by ED Physician and Chronic Changes Diagnostic Testing: Clinical Impression(s) from Imaging Studies Brain CT 09/12/23 01:33 IMPRESSION: No CT evidence of acute intracranial hemorrhage or injury. Mild senescent changes with atherosclerosis. N.B. : The above Results were Read Back by Vipul Ybarra MD to Rosa Collins MD, and understanding confirmed on 09/12/2023 01:52:43 (ET). Electronically Signed: Vipul Ybarra MD at 1:52 EST , ADDENDUM: 09/12/23 0159 IMPRESSION: No CT evidence of acute intracranial hemorrhage or injury. Mild senescent changes with atherosclerosis. N.B. : The above Results were Read Back by Vipul Ybarra MD to Rosa Collins MD, and understanding confirmed on 09/12/2023 01:52:43 (ET). Electronically Signed: Vipul Ybarra MD at 1:52 EST , Head/Neck CTA 09/12/23 01:35 IMPRESSION: Scattered atherosclerosis with 50% stenosis of left vertebral origin. Remainder of the left vertebral artery origin is widely patent with congenital left vertebral dominance. 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 Multiple thyroid nodules are likely benign given small size relative to age. Ultrasound could further evaluate as clinically indicated. Mild scattered sinus disease. Electronically Signed: Vipul Ybarra MD at 2:35 EST Reading Location ID and State: [facility] / [place] Tel , Service support , Chest X-Ray 09/12/23 02:10 IMPRESSION: Findings compatible with chronic obstructive pulmonary disease. Hazy opacification right lateral midlung, possibly possibly representing residual peripheral nodularity, with otherwise improved aeration in the mid and lower lungs. CT follow-up is recommended when clinically able for comparison with June 09, 2022 Electronically Signed: Vipul Ybarra MD at 2:42 EST , EKG Initial EKG: Attestation: I personally reviewed and interpreted this EKG as follows: Interpretation: Sinus Bradycardia (Sinus bradycardia 57 bpm with a first-degree block.) Treatment and Re-Evaluation :: CBC was normal white count 7 with a hemoglobin of 8.8. Patient has a history ofchronic anemia. Chemistry studies remarkable for BUN of 39 and creatinine 2.19. This is consistent with his baseline. Initial troponin is 19. Portable chest x- ray per my interpretation was chronic changes with atelectasis noted in the left lateral lung. EKG although reads out as atrial fibrillation I believe is actually sinus bradycardia with a first-degree AV block. I did look through thepatient's cardiac catheterization technician recordings and I do not see definite evidence of A-fib. CT of the head reveals chronic changes with no acute findings. CTA of the head and neck reveals no evidence of acute carotid or proximal intracranial artery occlusion. No focal flow-limiting stenosis. I did speak with the neurologist from [facility]. At the time of his exam patient's NIH score was 0. He did recommend observation overnight for MRI. I will speak with the hospitalist. Discharge Plan Triage Chief Complaint: Dizziness ED Provider: Rosa Collins Dx/Rx/DC Orders Clinical Impression: Vertigo Prescriptions: No Action ammonium lactate 12 % lotion 1 applic TOPICAL QD-BID PRN (Reason: dry skin ) triamcinolone acetonide [Nasacort] 55 mcg aerosol,spray 2 spray INTRANASAL DAILY PRN (Reason: allergies) (DME) handicap placcard Qty: 1 0RF Rx Instructions: Lifetime: debility coenzyme Q10 [Co Q-10] 100 mg capsule 100 mg PO DAILY ascorbate calcium (vitamin C) 500 mg tablet 500 mg PO DAILY cholecalciferol (vitamin D3) 100 mcg (4,000 unit) tablet 100 mcg (4,000 unit) tablet 100 mcg PO DAILY (DME) spacer See Rx Instructions .ROUTE .MEDSUPPLY Qty: 1 0RF Rx Instructions: As directed ropinirole 1 mg tablet 1 mg PO QHS Qty: 60 5RF Rx Instructions: administer 1-3 hours before bedtime ibuprofen 200 mg tablet 200 mg PO Q6H PRN (Reason: fever or pain) docusate sodium 100 mg capsule 100 mg PO BID pantoprazole 40 mg tablet,delayed release (DR/EC) 40 mg PO DAILY Qty: 90 1RF (DME) OneTouch Ultra Test Strip See Rx Instructions .Route Qty: 180 1RF Rx Instructions: Check twice a day. (DME) lancets Misc See Rx Instructions .Route Qty: 180 1RF Rx Instructions: twice daily insulin glargine [Lantus Solostar U-100 Insulin] 100 unit/mL (3 mL) insulin pen 15 unit subcut QAM Qty: 15 0RF aspirin 81 mg tablet,chewable 81 mg PO QHS Patient Comments: antiplatelet spironolactone 25 mg tablet 25 mg PO DAILY Patient Comments: TAKE 1 TABLET BY MOUTH DAILY. THIS IS A DOSE INCREASE albuterol sulfate [Ventolin HFA] 90 mcg/actuation HFA aerosol inhaler 2 inh INHALATION Q4H PRN (Reason: shortness of breath or wheezing) Qty: 18 6RF nitroglycerin [Nitrostat] 0.4 mg tablet, sublingual 0.4 mg SUBLINGUAL Q5-15M PRN (Reason: chest pain) Qty: 25 2RF ipratropium-albuterol 0.5 mg-3 mg(2.5 mg base)/3 mL solution for nebulization 3 ml inhalation 4X/DAY PRN PRN (Reason: shortness of breath or wheezing) Qty: 90 6RF ipratropium bromide 42 mcg (0.06 %) spray,non-aerosol 2 spray INTRANASAL TID-QID PRN (Reason: allergy symptoms) Qty: 15 6RF Rx Instructions: nasal drip - administer into each nostril; wait 30 seconds between sprays albuterol sulfate 2.5 mg /3 mL (0.083 %) solution for nebulization 2.5 mg inhalation Q4H PRN (Reason: Sob &/Or Wheezing) Qty: 180 11RF ipratropium bromide 0.02 % solution 2.5 ml inhalation Q6H PRN (Reason: shortness of breath or wheezing) Qty: 150 11RF furosemide 40 mg tablet 40 mg PO .COMPLEX Qty: 180 3RF Rx Instructions: 40 mg orally daily. Take 40 mg BID if weight > 190lbs; montelukast 10 mg tablet 10 mg PO QHS Qty: 90 3RF carvedilol 25 mg tablet 25 mg PO BID Qty: 180 3RF Rx Instructions: must administer with a meal/food atorvastatin 40 mg tablet 40 mg PO QODAY Qty: 45 3RF hydralazine 100 mg tablet 100 mg PO TID Qty: 360 3RF Farxiga 10 mg tablet 10 mg PO DAILY Qty: 90 0RF isosorbide mononitrate 30 mg tablet extended release 24 hr 30 mg PO DAILY Qty: 90 1RF amlodipine 10 mg tablet 10 mg PO DAILY Qty: 90 3RF loratadine 10 mg tablet 10 mg PO DAILY Qty: 90 0RF Primary Care Provider: Riaz Garrison Referrals: Riaz Garrison MD [Primary Care Provider] - Disposition Disposition: Acute Care Hospital [facility] What to do if you have Problems For any increased pain, shortness of breath, bleeding, nausea or vomiting, chestpain, or any unexpected problems, contact your Primary Care Provider. Call [facility] ([phone]) or report to the closest Emergency Room. Call 911 if necessary. 09/12/23 0538 <Electronically signed by Rosa Collins MD> Cosigner Signature (if applicable): CC: Dr. Riaz Garrison MD ~ Signed [facility] Work Phone: 1(993) 372-194912-07-2023 History and physical note Author Raymond Keenan [facility] September 12, 2023 5:13am Note Date/Time September 12, 2023 3 :23am [facility] Medical Records Department [address] [place] [address] H&P Exam - Hospitalist 09/12/23 0321 MR#: [id number] Acct: [id number] Name: DESIREE AMES Rep #:[id number] : 1935 88 From: Raymond Smalls DO PCP: Dr. Riaz Garrison MD Status:REG ER Location: ED HPI - General General Date of Service: 09/12/23 Chief Complaint: Severe vertigo, nausea and dry heaves HPI Narrative DESIREE AMES, is a 88 M with a past medical history of essential hypertension, hyperlipidemia, obesity; with BMI of 31.3 this admission, MARIXA, diabetes mellitustype 2; of unknown control on xiga and Lantus, history of chronic diastolic CHF; with preserved left ventricular ejection fraction, coronary artery disease;status post distal RCA stent (1997), history of AAA; status postrepair (1998), history of tobacco abuse (quit 2007); with subsequent COPD, chronic kidney disease; stage III-IV with baseline serum creatinine of ~2.3 mg/dL with a BUN of~37 mg/dL, history of severe peripheral vascular disease with lower extremity claudication; with patient unable to complete procedure for lower extremity angioplasty at [facility] last Saturday, osteoarthritis, spinal stenosis and degenerative disc disease; with chronic low back pain, restless leg syndrome andhistory of vertigo likely due to BPPV who presents to [facility] complaining of severe vertigo, nausea and dry heaves. Mr. Ames reports his symptoms began approximately 1 hour prior to arrival with the abrupt onset of severe dizziness with nausea after he had taken a shower and gone back to the family room. Describes it as both a lightheaded and spinning sensation simultaneously and he states he had to ramirez back to his chair before he fell. Even though he was holding his head still he perceived the movement of the pattern in his carpet with dry heaving and mild headache so he decided to come in for further evaluation and treatment. He denies associated fever, chills, chest pain, slurred speech, unilateral weakness, diarrhea or constipation. In the ER his CT scan of the head was negative for acute pathologic changes but neurology recommended follow- up MRI in the a.m. to confirm there was no acute neurologic injury with the ER physician concerned for possible central vertigo secondary to TIA/CVA and he was then admitted to the CDU under observation status for a stay that is expected to be less than 48 hours. [facility] Medical History (Updated 09/12/23 @ 03:[address] Raymond Teague, ) (HFpEF) heart failure with preserved ejection fraction Abdominal aortic aneurysm (AAA) Acute cystitis with hematuria Allergic rhinitis Ambulates with cane Anemia Arthritis Asthma Asthma-COPD overlap syndrome Atherosclerotic heart disease of [place] coronary artery without angina pectoris Back pain BiPAP (biphasic positive airway pressure) dependence Cancer Carotid bruit Chest pain Chronic constipation Chronic cough Colon polyp Colonic mass COPD (chronic obstructive pulmonary disease) Coronary artery disease Daytime hypersomnia DDD (degenerative disc disease), lumbar Debility DM2 (diabetes mellitus, type 2) ALMEIDA (dyspnea on exertion) Dyslipidemia Easy bruising Essential (primary) hypertension Fatigue Former smoker Frequent hospital admissions Gastroesophageal reflux disease History of edema History of heart attack History of hiatal hernia History of irregular heartbeat History of pain when walking History of renal disease History of steroid therapy History of stress test Hoarseness Hyperlipidemia Injury of back Kidney stone Leg cramps Lightheadedness Obstructive sleep apnea MARIXA (obstructive sleep apnea) Overweight Patellar bursitis of right knee Peripheral vascular disease of extremity with claudication Pleural effusion Pneumonia Pre-syncope PVD (peripheral vascular disease) Rectus sheath hematoma Recurrent urinary tract infection Restless legs syndrome Right leg swelling Seasonal allergies Shortness of breath on exertion Sleep apnea Somatic dysfunction of pelvic region Walker as ambulation aid Wears dentures Wears glasses Wears hearing aid Home Medications ammonium lactate 12 % lotion 1 applic topical QD-BID PRN dry skin 02/06/18 [History Last Taken Unknown] handicap placcard #1 ea 09/28/19 [Rx Last Taken Unknown] ascorbate calcium (vitamin C) 500 mg tablet 500 mg PO DAILY Bone strength 05/03/20 [History Last Taken 03/09/22] coenzyme Q10 100 mg capsule (Co Q-10) 100 mg PO DAILY 05/03/20 [History Last Taken Unknown] cholecalciferol (vitamin D3) 100 mcg (4,000 unit) tablet 100 mcg PO DAILY 11/03/20 [History Last Taken Unknown] spacer #1 ea 01/12/21 [Rx Last Taken Unknown] albuterol sulfate 90 mcg/actuation aerosol inhaler (Ventolin HFA) 2 inh inhalation Q4H PRN shortness of breath or wheezing #18 grams 11/27/21 [Rx Last Taken Unknown] aspirin 81 mg chewable tablet 81 mg PO QHS heart health 05/30/22 [History Last Taken Unknown] nitroglycerin 0.4 mg sublingual tablet (Nitrostat) 0.4 mg sublingual Q5-15M PRN chest pain #25 tabs 06/08/22 [Rx Last Taken Unknown] ipratropium 0.5 mg-albuterol 3 mg (2.5 mg base)/3 mL nebulization soln 3 ml inhalation 4X/DAY PRN PRN shortness of breath or wheezing #90 mL 08/03/22 [Rx Last Taken Unknown] ropinirole 1 mg tablet 1 mg PO QHS #60 tabs 10/18/22 [Rx Last Taken Unknown] triamcinolone acetonide 55 mcg nasal spray aerosol (Nasacort) 2 spray intranasalDAILY PRN allergies 11/06/22 [History Last Taken Unknown] ipratropium bromide 42 mcg (0.06 %) nasal spray 2 spray intranasal TID-QID PRN allergy symptoms #15 mL 11/09/22 [Rx Last Taken Unknown] albuterol sulfate 2.5 mg/3 mL (0.083 %) solution for nebulization 2.5 mg (3 mL) inhalation Q4H PRN Sob &/Or Wheezing #180 mL 11/29/22 [Rx Last Taken Unknown] ipratropium bromide 0.02 % solution for inhalation 2.5 ml inhalation Q6H PRN shortness of breath or wheezing #150 mL 11/29/22 [Rx Last Taken Unknown] furosemide 40 mg tablet 40 mg PO .COMPLEX #180 tabs 04/05/23 [Rx Last Taken Unknown] montelukast 10 mg tablet 10 mg PO QHS Respiratory #90 tabs 04/24/23 [Rx Last Taken Unknown] docusate sodium 100 mg capsule 100 mg PO BID 05/06/23 [History Last Taken Unknown] ibuprofen 200 mg tablet 200 mg PO Q6H PRN fever or pain 05/06/23 [History Last Taken Unknown] blood sugar diagnostic (Palm Ultra Test strips) #180 ea 05/16/23 [Rx Last Taken Unknown] pantoprazole 40 mg tablet,delayed release 40 mg PO DAILY reflux #90 tabs 05/16/23 [Rx Last Taken Unknown] atorvastatin 40 mg tablet 40 mg PO QODAY cholesterol #45 tabs 05/23/23 [Rx Last Taken Unknown] carvedilol 25 mg tablet 25 mg PO BID #180 tabs 05/23/23 [Rx Last Taken Unknown] hydralazine 100 mg tablet 100 mg PO TID Disreguard previous RX: dose changed #360 tabs 06/07/23 [Rx Last Taken Unknown] dapagliflozin propanediol 10 mg tablet (ga) 10 mg PO DAILY #90 tabs 07/09/23 [Rx Last Taken Unknown] insulin glargine 100 unit/mL (3 mL) subcutaneous pen (Lantus Solostar U-100 Insulin) 15 unit (0.15 mL) subcut QAM #15 mL 07/18/23 [Rx Last Taken Unknown] lancets #180 ea 07/18/23 [Rx Last Taken Unknown] isosorbide mononitrate 30 mg tablet,extended release 24 hr 30 mg PO DAILY #90 tabs 07/24/23 [Rx Last Taken Unknown] amlodipine 10 mg tablet 10 mg PO DAILY This is a dose increase #90 tabs 08/28/23[Rx Last Taken Unknown] loratadine 10 mg tablet 10 mg PO DAILY #90 tabs 09/04/23 [Rx Last Taken Unknown] spironolactone 25 mg tablet 25 mg PO DAILY 09/12/23 [History Last Taken Unknown] Allergy/AdvReac Type Severity Reaction Status Date / Time cilostazol [From Pletal] Allergy Unknown Verified 09/12/23 01:25 felodipine Allergy Hives Verified 09/12/23 01:25 levofloxacin Allergy Hives Verified 09/12/23 01:25 Sulfa (Sulfonamide Allergy Unknown Verified 09/12/23 01:25 Antibiotics) Family History Father Diabetes Cancer Prostate cancer Mother Dementia Brother Parkinsons Brother Cancer Surgical History H/O aortic aneurysm repair (11/1998) History of coronary artery stent placement (02/17/08) History of endarterectomy (07/2018) History of hernia repair History of left heart catheterization (03/2014) History of surgical procedure History of transurethral resection of prostate History of vascular surgery (08/2018) Social History household members: spouse 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 status: retired current occupation: Responsible [employer] Smoking Status: Former smoker quit date: 08/07/08 pack-years: 2 Tobacco: How many years used: 52 Electronic Cigarette Use: not used how long ago did patient quit smokin years ago alcohol intake: current alcohol intake frequency: holidays/special occasions only details: hx of alcohol abuse substance use type: does not use caffeine: No what type of physical activity do you participate in: other details: Nustep frequency: 5-6 times per week duration: 15-30 minutes/day seatbelt use: always do you feel safe at home: Yes ROS ROS Narrative Review of systems: General: Denies fever chills HENT: Denies headache, denies stuffy nose, denies sore throat EYES: Patient admits to seeing a pattern in his carpet change while holding his head still Resp: Denies cough, denies shortness of breath Cardiac: Denies chest pain GI: He admits to nausea and vomiting with dry heaves but he denies abdominal pain, constipation or diarrhea : Denies changes in urination Extremity: Denies swelling Musculoskeletal: Feels somewhat generally weak and unwell Neuro: Denies any numbness/tingling Heme: Denies any bleeding or bruising Skin: Denies rashes Psychiatric: No complaints voiced Endocrine: No polyuria The rest of the 14 point ROS was negative except for positives in HPI. Vital Signs Vital Signs Vital Signs: 09/12/23 01:18 09/12/23 01:33 09/12/23 01:30 Temperature 96.2 F L Temperature Source Temporal Pulse Rate 54 L 50 L Respiratory Rate 16 14 Blood Pressure 196/68 H 168/67 H Blood Pressure Mean 110 100 Pulse Ox 96 96 Oxygen Delivery Method Room Air Room Air Room Air 09/12/23 01:47 09/12/23 01:33 09/12/23 01:45 Temperature Temperature Source Pulse Rate 59 L 62 63 Respiratory Rate 16 12 12 Blood Pressure 178/67 H 172/68 H 171/80 H Blood Pressure Mean 104 102 110 Pulse Ox 94 96 95 Oxygen Delivery Method Room Air Room Air Room Air 09/12/23 02:00 09/12/23 02:15 09/12/23 02:30 Temperature Temperature Source Pulse Rate 63 60 57 L Respiratory Rate 22 H 17 17 Blood Pressure 166/64 H 179/61 H 181/68 H Blood Pressure Mean 98 100 105 Pulse Ox 95 95 94 Oxygen Delivery Method Room Air Room Air Room Air Weight Weight: 205 lb 11.06 oz Body Mass Index (BMI) 31.2 Physical Exam Const alert, oriented x3, no apparent distress and average body habitus General Appearance: cooperative HEENT normocephalic, head/scalp atraumatic, hearing grossly normal bilaterally, moist oral mucous membranes and oropharynx normal Eyes PERRL, EOMs intact bilaterally and conjunctivae normal Eyes Narrative: No nystagmus was noted. Neck no lymphadenopathy and supple Resp normal respiratory effort, no retractions, no use of accessory muscles and clearto auscultation bilaterally Cardio regular rate and regular rhythm Cardio Narrative: Mild bradycardia noted in the ~54 bpm range. GI normal to inspection, nondistended, normoactive bowel sounds, soft to palpation,non-tender and non-distended Extremity normal to inspection and full ROM Neuro oriented x3, CN's II-XII intact bilaterally, moves all extremities and no focal motor deficits Sensorium / Orientation: awake, alert, oriented to person, oriented to place andoriented to time Speech: speech normal Motor Exam: strength 5/5 throughout Psych Mood & Affect: anxious Results Medical Records Data Attestation: I reviewed the patient's medical records Lab / Micro Data Attestation: I reviewed the patient's lab results. 09/12/23 01:40 09/12/23 01:40 Labs: Laboratory Results - last 24 hr 09/12/23 01:40: WBC 7.0, RBC 3.29 L, Hgb 8.8 L, Hct 28.8 L, MCV 87.5, MCH 26.7 L, MCHC 30.6 L, RDW Std Deviation 45.1 H, RDW Coeff of Justin 14.1, Plt Count 313, MPV 10.3, Immature Gran % (Auto) 0.400, Neut % (Auto) 53.8, Lymph % (Auto) 25.5,[place] % (Auto) 14.9 H, Eos % (Auto) 4.7, Baso % (Auto) 0.7, Absolute Neuts (auto)3.7, Absolute Lymphs (auto) 1.78, Nucleated RBC % 0, PT 14.3, INR 1.1, APTT 31.3, Sodium 137, Potassium 3.9, Chloride 105, Carbon Dioxide 25.0, Anion Gap 7,BUN 39 H, Creatinine 2.19 H, Estim Creat Clear Calc 23.42, Est GFR (MDRD) Af Amer 37 L, Est GFR (MDRD) Non-Af 31 L, BUN/Creatinine Ratio 17.8, Glucose 135 H,Calcium 9.3, Troponin I High Sens 19 Imagaing Radiology Impression Brain CT 09/12/23 01:33 IMPRESSION: No CT evidence of acute intracranial hemorrhage or injury. Mild senescent changes with atherosclerosis. N.B. : The above Results were Read Back by Vipul Ybarra MD to Rosa Collins MD, and understanding confirmed on 09/12/2023 01:52:43 (ET). Electronically Signed: Vipul Ybarra MD at 1:52 EST , ADDENDUM: 09/12/23 0159 IMPRESSION: No CT evidence of acute intracranial hemorrhage or injury. Mild senescent changes with atherosclerosis. N.B. : The above Results were Read Back by Vipul Ybarra MD to oRsa Collins MD, and understanding confirmed on 09/12/2023 01:52:43 (ET). Electronically Signed: Vipul Ybarra MD at 1:52 EST , Head/Neck CTA 09/12/23 01:35 IMPRESSION: Scattered atherosclerosis with 50% stenosis of left vertebral origin. Remainder of the left vertebral artery origin is widely patent with congenital left vertebral dominance. 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 Multiple thyroid nodules are likely benign given small size relative to age. Ultrasound could further evaluate as clinically indicated. Mild scattered sinus disease. Electronically Signed: Vipul Ybarra MD at 2:35 EST , Chest X-Ray 09/12/23 02:10 IMPRESSION: Findings compatible with chronic obstructive pulmonary disease. Hazy opacification right lateral midlung, possibly possibly representing residual peripheral nodularity, with otherwise improved aeration in the mid and lower lungs. CT follow-up is recommended when clinically able for comparison with June 09, 2022 Electronically Signed: Vipul Ybarra MD at 2:42 EST , Assessment & Plan Assessment/Plan (1) Vertigo: (2) Nausea and vomiting: QUALIFIERS: Vomiting type: bilious vomiting Qualified Code(s): R11.14 - Bilious vomiting (3) Peripheral vascular disease of extremity with claudication: (4) Asthma-COPD overlap syndrome: PLAN: Plan 1. 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 Give aspirin and statin plus allow for permissive hypertension until stroke is definitively ruled out. Check MRI of the brain without contrast given patient's significant chronic kidney disease. Check carotid dopplers given his history of severe cardiovascular and peripheral vascular disease. Check echocardiogram to evaluate left ventricular function and to assess for possible valvulopathy. Give IV Zofran as needed nausea and vomiting. Give oral Antivert as needed for breakthrough vertigo symptoms. Finally, we will consult PT/OT and case management of this patient may have residual mobility issues with help appreciated in advance. 2. History of severe peripheral vascular disease with lower extremity claudication; with patient unable to complete procedure for lower extremity angioplasty at [facility] last Saturday - Noted. This patient has a vasculopathic history. Continue home medications as previous. 3. Essential hypertension - Hold scheduled antihypertensives until CVA is definitively ruled out on MRI. 4. Hyperlipidemia - Resume statin and check lipid profile this morning in lightof #1. 5. Obesity; with BMI of 31.3 this admission plus MARIXA - Weight loss will be recommended. Continue nocturnal BiPAP as previous. 6. Diabetes mellitus type 2; of unknown control on Farxiga and Lantus - ADA diet once CVA ruled out. Fingerstick blood sugars before every meal and at bedtime plus lowest intensity sliding scale insulin. Hold Farxiga and cut Lantus dose by approximately 60% to minimize the potential risk of hypoglycemia. 7. History of chronic diastolic CHF; with preserved left ventricular ejection fraction - Stable. Resume current treatment consider decreasing his dose of beta-wagner with persistent bradycardia in the low 50s for the past 2 to 3 weeks with patient currently on Coreg 25 mg p.o. twice daily. 8. Coronary artery disease; status post distal RCA stent (1997) - Stable. Continue home medications as previous. 9. History of AAA; status postrepair (1998) - Noted. Patient reports recent MRI of the abdomen with no acute pathologic changes. 10. History of tobacco abuse (quit 2007); with subsequent COPD - Stable with noevidence of flare at this time. Continue as needed nebulizers. 11. Chronic kidney disease; stage III-IV with baseline serum creatinine of ~2.3mg/dL with a BUN of ~37 mg/dL - Stable. Avoid potentially nephrotoxic agents and check BMP daily to ensure continued stability. 12. 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 Give Tylenol as needed fever or pain. 13. Restless leg syndrome - Resume Requip as previous. 14. DVT prophylaxis - Heparin 5,000 units SQ 3 times daily plus SCD's. Total time: Approximately 70 minutes. Charges/Coding Visit Charges OBSV E&M: 59316 Observ/hosp same date L2 09/12/23 0513 <Electronically signed by Raymond Teague DO> Cosigner Signature (if applicable): CC: Dr. Riaz Garrison MD; Dr. Raymond Teague DO~ Signed [facility] Work Phone: 1(415) 243-498012-07-2023 History and physical note Author [facility] 12, 2023 5:13am Note Date/Time September 12, 2023 3 :23am [facility] Medical Records Department [address] [place] [address] H&P Exam - Hospitalist 09/12/23 0321 MR#: [id number] Acct: [id number] Name: DESIREE AMES Rep #:[id number] : 1935 88 From: Raymond Smalls DO PCP: Dr. Riaz Garrison MD Status:REG ER Location: ED HPI - General General Date of Service: 09/12/23 Chief Complaint: Severe vertigo, nausea and dry heaves HPI Narrative DESIREE AMES, is a 88 M with a past medical history of essential hypertension, hyperlipidemia, obesity; with BMI of 31.3 this admission, MARIXA, diabetes mellitustype 2; of unknown control on and t, history of chronic diastolic CHF; with preserved left ventricular ejection fraction, coronary artery disease;status post distal RCA stent (1997), history of AAA; status postrepair (1998), history of tobacco abuse (quit 2007); with subsequent COPD, chronic kidney disease; stage III-IV with baseline serum creatinine of ~2.3 mg/dL with a BUN of~37 mg/dL, history of severe peripheral vascular disease with lower extremity claudication; with patient unable to complete procedure for lower extremity angioplasty at [facility] last Saturday, osteoarthritis, spinal stenosis and degenerative disc disease; with chronic low back pain, restless leg syndrome andhistory of vertigo likely due to BPPV who presents to [facility] complaining of severe vertigo, nausea and dry heaves. Mr. Ames reports his symptoms began approximately 1 hour prior to arrival with the abrupt onset of severe dizziness with nausea after he had taken a shower and gone back to the family room. Describes it as both a lightheaded and spinning sensation simultaneously and he states he had to ramirez back to his chair before he fell. Even though he was holding his head still he perceived the movement of the pattern in his carpet with dry heaving and mild headache so he decided to come in for further evaluation and treatment. He denies associated fever, chills, chest pain, slurred speech, unilateral weakness, diarrhea or constipation. In the ER his CT scan of the head was negative for acute pathologic changes but neurology recommended follow- up MRI in the a.m. to confirm there was no acute neurologic injury with the ER physician concerned for possible central vertigo secondary to TIA/CVA and he was then admitted to the CDU under observation status for a stay that is expected to be less than 48 hours. [facility] Medical History (Updated 09/12/23 @ 03:[address] Raymond Teague, ) (HFpEF) heart failure with preserved ejection fraction Abdominal aortic aneurysm (AAA) Acute cystitis with hematuria Allergic rhinitis Ambulates with cane Anemia Arthritis Asthma Asthma-COPD overlap syndrome Atherosclerotic heart disease of [place] coronary artery without angina pectoris Back pain BiPAP (biphasic positive airway pressure) dependence Cancer Carotid bruit Chest pain Chronic constipation Chronic cough Colon polyp Colonic mass COPD (chronic obstructive pulmonary disease) Coronary artery disease Daytime hypersomnia DDD (degenerative disc disease), lumbar Debility DM2 (diabetes mellitus, type 2) ALMEIDA (dyspnea on exertion) Dyslipidemia Easy bruising Essential (primary) hypertension Fatigue Former smoker Frequent hospital admissions Gastroesophageal reflux disease History of edema History of heart attack History of hiatal hernia History of irregular heartbeat History of pain when walking History of renal disease History of steroid therapy History of stress test Hoarseness Hyperlipidemia Injury of back Kidney stone Leg cramps Lightheadedness Obstructive sleep apnea MARIXA (obstructive sleep apnea) Overweight Patellar bursitis of right knee Peripheral vascular disease of extremity with claudication Pleural effusion Pneumonia Pre-syncope PVD (peripheral vascular disease) Rectus sheath hematoma Recurrent urinary tract infection Restless legs syndrome Right leg swelling Seasonal allergies Shortness of breath on exertion Sleep apnea Somatic dysfunction of pelvic region Walker as ambulation aid Wears dentures Wears glasses Wears hearing aid Home Medications ammonium lactate 12 % lotion 1 applic topical QD-BID PRN dry skin 02/06/18 [History Last Taken Unknown] handicap placcard #1 ea 09/28/19 [Rx Last Taken Unknown] ascorbate calcium (vitamin C) 500 mg tablet 500 mg PO DAILY Bone strength 05/03/20 [History Last Taken 03/09/22] coenzyme Q10 100 mg capsule (Co Q-10) 100 mg PO DAILY 05/03/20 [History Last Taken Unknown] cholecalciferol (vitamin D3) 100 mcg (4,000 unit) tablet 100 mcg PO DAILY 11/03/20 [History Last Taken Unknown] spacer #1 ea 01/12/21 [Rx Last Taken Unknown] albuterol sulfate 90 mcg/actuation aerosol inhaler (Ventolin HFA) 2 inh inhalation Q4H PRN shortness of breath or wheezing #18 grams 11/27/21 [Rx Last Taken Unknown] aspirin 81 mg chewable tablet 81 mg PO QHS heart health 05/30/22 [History Last Taken Unknown] nitroglycerin 0.4 mg sublingual tablet (Nitrostat) 0.4 mg sublingual Q5-15M PRN chest pain #25 tabs 06/08/22 [Rx Last Taken Unknown] ipratropium 0.5 mg-albuterol 3 mg (2.5 mg base)/3 mL nebulization soln 3 ml inhalation 4X/DAY PRN PRN shortness of breath or wheezing #90 mL 08/03/22 [Rx Last Taken Unknown] ropinirole 1 mg tablet 1 mg PO QHS #60 tabs 10/18/22 [Rx Last Taken Unknown] triamcinolone acetonide 55 mcg nasal spray aerosol (Nasacort) 2 spray intranasalDAILY PRN allergies 11/06/22 [History Last Taken Unknown] ipratropium bromide 42 mcg (0.06 %) nasal spray 2 spray intranasal TID-QID PRN allergy symptoms #15 mL 11/09/22 [Rx Last Taken Unknown] albuterol sulfate 2.5 mg/3 mL (0.083 %) solution for nebulization 2.5 mg (3 mL) inhalation Q4H PRN Sob &/Or Wheezing #180 mL 11/29/22 [Rx Last Taken Unknown] ipratropium bromide 0.02 % solution for inhalation 2.5 ml inhalation Q6H PRN shortness of breath or wheezing #150 mL 11/29/22 [Rx Last Taken Unknown] furosemide 40 mg tablet 40 mg PO .COMPLEX #180 tabs 04/05/23 [Rx Last Taken Unknown] montelukast 10 mg tablet 10 mg PO QHS Respiratory #90 tabs 04/24/23 [Rx Last Taken Unknown] docusate sodium 100 mg capsule 100 mg PO BID 05/06/23 [History Last Taken Unknown] ibuprofen 200 mg tablet 200 mg PO Q6H PRN fever or pain 05/06/23 [History Last Taken Unknown] blood sugar diagnostic (Palm Ultra Test strips) #180 ea 05/16/23 [Rx Last Taken Unknown] pantoprazole 40 mg tablet,delayed release 40 mg PO DAILY reflux #90 tabs 05/16/23 [Rx Last Taken Unknown] atorvastatin 40 mg tablet 40 mg PO QODAY cholesterol #45 tabs 05/23/23 [Rx Last Taken Unknown] carvedilol 25 mg tablet 25 mg PO BID #180 tabs 05/23/23 [Rx Last Taken Unknown] hydralazine 100 mg tablet 100 mg PO TID Disreguard previous RX: dose changed #360 tabs 06/07/23 [Rx Last Taken Unknown] dapagliflozin propanediol 10 mg tablet (ga) 10 mg PO DAILY #90 tabs 07/09/23 [Rx Last Taken Unknown] insulin glargine 100 unit/mL (3 mL) subcutaneous pen (Lantus Solostar U-100 Insulin) 15 unit (0.15 mL) subcut QAM #15 mL 07/18/23 [Rx Last Taken Unknown] lancets #180 ea 07/18/23 [Rx Last Taken Unknown] isosorbide mononitrate 30 mg tablet,extended release 24 hr 30 mg PO DAILY #90 tabs 07/24/23 [Rx Last Taken Unknown] amlodipine 10 mg tablet 10 mg PO DAILY This is a dose increase #90 tabs 08/28/23[Rx Last Taken Unknown] loratadine 10 mg tablet 10 mg PO DAILY #90 tabs 09/04/23 [Rx Last Taken Unknown] spironolactone 25 mg tablet 25 mg PO DAILY 09/12/23 [History Last Taken Unknown] Allergy/AdvReac Type Severity Reaction Status Date / Time cilostazol [From Pletal] Allergy Unknown Verified 09/12/23 01:25 felodipine Allergy Hives Verified 09/12/23 01:25 levofloxacin Allergy Hives Verified 09/12/23 01:25 Sulfa (Sulfonamide Allergy Unknown Verified 09/12/23 01:25 Antibiotics) Family History Father Diabetes Cancer Prostate cancer Mother Dementia Brother Parkinsons Brother Cancer Surgical History H/O aortic aneurysm repair (11/1998) History of coronary artery stent placement (02/17/08) History of endarterectomy (07/2018) History of hernia repair History of left heart catheterization (03/2014) History of surgical procedure History of transurethral resection of prostate History of vascular surgery (08/2018) Social History household members: spouse 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 status: retired current occupation: Responsible [employer] Smoking Status: Former smoker quit date: 08/07/08 pack-years: 2 Tobacco: How many years used: 52 Electronic Cigarette Use: not used how long ago did patient quit smokin years ago alcohol intake: current alcohol intake frequency: holidays/special occasions only details: hx of alcohol abuse substance use type: does not use caffeine: No what type of physical activity do you participate in: other details: Nustep frequency: 5-6 times per week duration: 15-30 minutes/day seatbelt use: always do you feel safe at home: Yes ROS ROS Narrative Review of systems: General: Denies fever chills HENT: Denies headache, denies stuffy nose, denies sore throat EYES: Patient admits to seeing a pattern in his carpet change while holding his head still Resp: Denies cough, denies shortness of breath Cardiac: Denies chest pain GI: He admits to nausea and vomiting with dry heaves but he denies abdominal pain, constipation or diarrhea : Denies changes in urination Extremity: Denies swelling Musculoskeletal: Feels somewhat generally weak and unwell Neuro: Denies any numbness/tingling Heme: Denies any bleeding or bruising Skin: Denies rashes Psychiatric: No complaints voiced Endocrine: No polyuria The rest of the 14 point ROS was negative except for positives in HPI. Vital Signs Vital Signs Vital Signs: 09/12/23 01:18 09/12/23 01:33 09/12/23 01:30 Temperature 96.2 F L Temperature Source Temporal Pulse Rate 54 L 50 L Respiratory Rate 16 14 Blood Pressure 196/68 H 168/67 H Blood Pressure Mean 110 100 Pulse Ox 96 96 Oxygen Delivery Method Room Air Room Air Room Air 09/12/23 01:47 09/12/23 01:33 09/12/23 01:45 Temperature Temperature Source Pulse Rate 59 L 62 63 Respiratory Rate 16 12 12 Blood Pressure 178/67 H 172/68 H 171/80 H Blood Pressure Mean 104 102 110 Pulse Ox 94 96 95 Oxygen Delivery Method Room Air Room Air Room Air 09/12/23 02:00 09/12/23 02:15 09/12/23 02:30 Temperature Temperature Source Pulse Rate 63 60 57 L Respiratory Rate 22 H 17 17 Blood Pressure 166/64 H 179/61 H 181/68 H Blood Pressure Mean 98 100 105 Pulse Ox 95 95 94 Oxygen Delivery Method Room Air Room Air Room Air Weight Weight: 205 lb 11.06 oz Body Mass Index (BMI) 31.2 Physical Exam Const alert, oriented x3, no apparent distress and average body habitus General Appearance: cooperative HEENT normocephalic, head/scalp atraumatic, hearing grossly normal bilaterally, moist oral mucous membranes and oropharynx normal Eyes PERRL, EOMs intact bilaterally and conjunctivae normal Eyes Narrative: No nystagmus was noted. Neck no lymphadenopathy and supple Resp normal respiratory effort, no retractions, no use of accessory muscles and clearto auscultation bilaterally Cardio regular rate and regular rhythm Cardio Narrative: Mild bradycardia noted in the ~54 bpm range. GI normal to inspection, nondistended, normoactive bowel sounds, soft to palpation,non-tender and non-distended Extremity normal to inspection and full ROM Neuro oriented x3, CN's II-XII intact bilaterally, moves all extremities and no focal motor deficits Sensorium / Orientation: awake, alert, oriented to person, oriented to place andoriented to time Speech: speech normal Motor Exam: strength 5/5 throughout Psych Mood & Affect: anxious Results Medical Records Data Attestation: I reviewed the patient's medical records Lab / Micro Data Attestation: I reviewed the patient's lab results. 09/12/23 01:40 09/12/23 01:40 Labs: Laboratory Results - last 24 hr 09/12/23 01:40: WBC 7.0, RBC 3.29 L, Hgb 8.8 L, Hct 28.8 L, MCV 87.5, MCH 26.7 L, MCHC 30.6 L, RDW Std Deviation 45.1 H, RDW Coeff of Justin 14.1, Plt Count 313, MPV 10.3, Immature Gran % (Auto) 0.400, Neut % (Auto) 53.8, Lymph % (Auto) 25.5,[place] % (Auto) 14.9 H, Eos % (Auto) 4.7, Baso % (Auto) 0.7, Absolute Neuts (auto)3.7, Absolute Lymphs (auto) 1.78, Nucleated RBC % 0, PT 14.3, INR 1.1, APTT 31.3, Sodium 137, Potassium 3.9, Chloride 105, Carbon Dioxide 25.0, Anion Gap 7,BUN 39 H, Creatinine 2.19 H, Estim Creat Clear Calc 23.42, Est GFR (MDRD) Af Amer 37 L, Est GFR (MDRD) Non-Af 31 L, BUN/Creatinine Ratio 17.8, Glucose 135 H,Calcium 9.3, Troponin I High Sens 19 Imagaing Radiology Impression Brain CT 09/12/23 01:33 IMPRESSION: No CT evidence of acute intracranial hemorrhage or injury. Mild senescent changes with atherosclerosis. N.B. : The above Results were Read Back by Vipul Ybarra MD to Rosa Collins MD, and understanding confirmed on 09/12/2023 01:52:43 (ET). Electronically Signed: Vipul Ybarra MD at 1:52 EST Reading Location ID and State: [facility] / [place] Tel , Service support , ADDENDUM: 09/12/23 0159 IMPRESSION: No CT evidence of acute intracranial hemorrhage or injury. Mild senescent changes with atherosclerosis. N.B. : The above Results were Read Back by Vipul Ybarra MD to Rosa Collins MD, and understanding confirmed on 09/12/2023 01:52:43 (ET). Electronically Signed: Vipul Ybarra MD at 1:52 EST , Head/Neck CTA 09/12/23 01:35 IMPRESSION: Scattered atherosclerosis with 50% stenosis of left vertebral origin. Remainder of the left vertebral artery origin is widely patent with congenital left vertebral dominance. 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 Multiple thyroid nodules are likely benign given small size relative to age. Ultrasound could further evaluate as clinically indicated. Mild scattered sinus disease. Electronically Signed: Vipul Ybarra MD at 2:35 EST , Chest X-Ray 09/12/23 02:10 IMPRESSION: Findings compatible with chronic obstructive pulmonary disease. Hazy opacification right lateral midlung, possibly possibly representing residual peripheral nodularity, with otherwise improved aeration in the mid and lower lungs. CT follow-up is recommended when clinically able for comparison with June 09, 2022 Electronically Signed: Vipul Ybarra MD at 2:42 EST , Assessment & Plan Assessment/Plan (1) Vertigo: (2) Nausea and vomiting: QUALIFIERS: Vomiting type: bilious vomiting Qualified Code(s): R11.14 - Bilious vomiting (3) Peripheral vascular disease of extremity with claudication: (4) Asthma-COPD overlap syndrome: PLAN: Plan 1. 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 Give aspirin and statin plus allow for permissive hypertension until stroke is definitively ruled out. Check MRI of the brain without contrast given patient's significant chronic kidney disease. Check carotid dopplers given his history of severe cardiovascular and peripheral vascular disease. Check echocardiogram to evaluate left ventricular function and to assess for possible valvulopathy. Give IV Zofran as needed nausea and vomiting. Give oral Antivert as needed for breakthrough vertigo symptoms. Finally, we will consult PT/OT and case management of this patient may have residual mobility issues with help appreciated in advance. 2. History of severe peripheral vascular disease with lower extremity claudication; with patient unable to complete procedure for lower extremity angioplasty at [facility] last Saturday - Noted. This patient has a vasculopathic history. Continue home medications as previous. 3. Essential hypertension - Hold scheduled antihypertensives until CVA is definitively ruled out on MRI. 4. Hyperlipidemia - Resume statin and check lipid profile this morning in lightof #1. 5. Obesity; with BMI of 31.3 this admission plus MARIXA - Weight loss will be recommended. Continue nocturnal BiPAP as previous. 6. Diabetes mellitus type 2; of unknown control on Farxiga and Lantus - ADA diet once CVA ruled out. Fingerstick blood sugars before every meal and at bedtime plus lowest intensity sliding scale insulin. Hold Farxiga and cut Lantus dose by approximately 60% to minimize the potential risk of hypoglycemia. 7. History of chronic diastolic CHF; with preserved left ventricular ejection fraction - Stable. Resume current treatment consider decreasing his dose of beta-wagner with persistent bradycardia in the low 50s for the past 2 to 3 weeks with patient currently on Coreg 25 mg p.o. twice daily. 8. Coronary artery disease; status post distal RCA stent (1997) - Stable. Continue home medications as previous. 9. History of AAA; status postrepair (1998) - Noted. Patient reports recent MRI of the abdomen with no acute pathologic changes. 10. History of tobacco abuse (quit 2007); with subsequent COPD - Stable with noevidence of flare at this time. Continue as needed nebulizers. 11. Chronic kidney disease; stage III-IV with baseline serum creatinine of ~2.3mg/dL with a BUN of ~37 mg/dL - Stable. Avoid potentially nephrotoxic agents and check BMP daily to ensure continued stability. 12. 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 Give Tylenol as needed fever or pain. 13. Restless leg syndrome - Resume Requip as previous. 14. DVT prophylaxis - Heparin 5,000 units SQ 3 times daily plus SCD's. Total time: Approximately 70 minutes. Charges/Coding Visit Charges OBSV E&M: 41996 Observ/hosp same date L2 09/12/23 0513 <Electronically signed by Raymond Teague DO> Cosigner Signature (if applicable): CC: Dr. Riaz Garrison MD; Dr. Raymond Teague DO~ Signed [facility] Work Phone: [phone]) 379-900812-07-2023 Discharge summary Author Rosa Collins [facility] September 12, 2023 5:38am Note Date/Time September 12, 2023 2 :33am [facility] Medical Records Department [address] [place] [address] Emergency Department Summary 09/12/23 MR#: [id number] Acct: [id number] Name: DESIREE AMES Rep #:[id number] : 1935 88 From: Rosa Collins MD PCP: Dr. Riaz Garrison MD Status:REG ER Location: ED HPI History of Present Illness Chief Complaint: Dizziness Informant: patient Onset/Context/Timing Onset: Today Context: Sudden Onset Narrative Narrative: Patient presents with sudden onset of dizziness with nausea. Patient states he had taken a shower and gone back to the family room. He was then walking to thekitchen to get something to eat when he suddenly got dizzy. He describes it as both a lightheaded and spinning sensation. He states he had to ramirez back to hischair before he fell. He states he was looking at a pattern in the carpet that was moving when he was not moving his head. He had nausea with some dry heaves. He reports a mild headache. Patient has a history of vascular disease. Last Saturday he had a procedure at [facility] trying to open some the blockages in his groin that were unsuccessful. [facility] Medical History (HFpEF) heart failure with preserved ejection fraction Abdominal aortic aneurysm (AAA) Acute cystitis with hematuria Allergic rhinitis Ambulates with cane Anemia Arthritis Asthma Asthma-COPD overlap syndrome Atherosclerotic heart disease of [place] coronary artery without angina pectoris Back pain BiPAP (biphasic positive airway pressure) dependence Cancer Carotid bruit Chest pain Chronic constipation Chronic cough Colon polyp Colonic mass COPD (chronic obstructive pulmonary disease) Coronary artery disease Daytime hypersomnia DDD (degenerative disc disease), lumbar Debility DM2 (diabetes mellitus, type 2) ALMEIDA (dyspnea on exertion) Dyslipidemia Easy bruising Essential (primary) hypertension Fatigue Former smoker Frequent hospital admissions Gastroesophageal reflux disease History of edema History of heart attack History of hiatal hernia History of irregular heartbeat History of pain when walking History of renal disease History of steroid therapy History of stress test Hoarseness Hyperlipidemia Injury of back Kidney stone Leg cramps Lightheadedness Obstructive sleep apnea MARIXA (obstructive sleep apnea) Overweight Patellar bursitis of right knee Peripheral vascular disease of extremity with claudication Pleural effusion Pneumonia Pre-syncope PVD (peripheral vascular disease) Rectus sheath hematoma Recurrent urinary tract infection Restless legs syndrome Right leg swelling Seasonal allergies Shortness of breath on exertion Sleep apnea Somatic dysfunction of pelvic region Walker as ambulation aid Wears dentures Wears glasses Wears hearing aid Home Medications ammonium lactate 12 % lotion 1 applic topical QD-BID PRN dry skin 02/06/18 [History Last Taken Unknown] handicap placcard #1 ea 09/28/19 [Rx Last Taken Unknown] ascorbate calcium (vitamin C) 500 mg tablet 500 mg PO DAILY Bone strength 05/03/20 [History Last Taken 03/09/22] coenzyme Q10 100 mg capsule (Co Q-10) 100 mg PO DAILY 05/03/20 [History Last Taken Unknown] cholecalciferol (vitamin D3) 100 mcg (4,000 unit) tablet 100 mcg PO DAILY 11/03/20 [History Last Taken Unknown] spacer #1 ea 01/12/21 [Rx Last Taken Unknown] albuterol sulfate 90 mcg/actuation aerosol inhaler (Ventolin HFA) 2 inh inhalation Q4H PRN shortness of breath or wheezing #18 grams 11/27/21 [Rx Last Taken Unknown] aspirin 81 mg chewable tablet 81 mg PO QHS heart health 05/30/22 [History Last Taken Unknown] nitroglycerin 0.4 mg sublingual tablet (Nitrostat) 0.4 mg sublingual Q5-15M PRN chest pain #25 tabs 06/08/22 [Rx Last Taken Unknown] ipratropium 0.5 mg-albuterol 3 mg (2.5 mg base)/3 mL nebulization soln 3 ml inhalation 4X/DAY PRN PRN shortness of breath or wheezing #90 mL 08/03/22 [Rx Last Taken Unknown] ropinirole 1 mg tablet 1 mg PO QHS #60 tabs 10/18/22 [Rx Last Taken Unknown] triamcinolone acetonide 55 mcg nasal spray aerosol (Nasacort) 2 spray intranasalDAILY PRN allergies 11/06/22 [History Last Taken Unknown] ipratropium bromide 42 mcg (0.06 %) nasal spray 2 spray intranasal TID-QID PRN allergy symptoms #15 mL 11/09/22 [Rx Last Taken Unknown] albuterol sulfate 2.5 mg/3 mL (0.083 %) solution for nebulization 2.5 mg (3 mL) inhalation Q4H PRN Sob &/Or Wheezing #180 mL 11/29/22 [Rx Last Taken Unknown] ipratropium bromide 0.02 % solution for inhalation 2.5 ml inhalation Q6H PRN shortness of breath or wheezing #150 mL 11/29/22 [Rx Last Taken Unknown] furosemide 40 mg tablet 40 mg PO .COMPLEX #180 tabs 04/05/23 [Rx Last Taken Unknown] montelukast 10 mg tablet 10 mg PO QHS Respiratory #90 tabs 04/24/23 [Rx Last Taken Unknown] docusate sodium 100 mg capsule 100 mg PO BID 05/06/23 [History Last Taken Unknown] ibuprofen 200 mg tablet 200 mg PO Q6H PRN fever or pain 05/06/23 [History Last Taken Unknown] blood sugar diagnostic (Palm Ultra Test strips) #180 ea 05/16/23 [Rx Last Taken Unknown] pantoprazole 40 mg tablet,delayed release 40 mg PO DAILY reflux #90 tabs 05/16/23 [Rx Last Taken Unknown] atorvastatin 40 mg tablet 40 mg PO QODAY cholesterol #45 tabs 05/23/23 [Rx Last Taken Unknown] carvedilol 25 mg tablet 25 mg PO BID #180 tabs 05/23/23 [Rx Last Taken Unknown] hydralazine 100 mg tablet 100 mg PO TID Disreguard previous RX: dose changed #360 tabs 06/07/23 [Rx Last Taken Unknown] dapagliflozin propanediol 10 mg tablet (Farxiga) 10 mg PO DAILY #90 tabs 07/09/23 [Rx Last Taken Unknown] insulin glargine 100 unit/mL (3 mL) subcutaneous pen (Lantus Solostar U-100 Insulin) 15 unit (0.15 mL) subcut QAM #15 mL 07/18/23 [Rx Last Taken Unknown] lancets #180 ea 07/18/23 [Rx Last Taken Unknown] isosorbide mononitrate 30 mg tablet,extended release 24 hr 30 mg PO DAILY #90 tabs 07/24/23 [Rx Last Taken Unknown] amlodipine 10 mg tablet 10 mg PO DAILY This is a dose increase #90 tabs 08/28/23[Rx Last Taken Unknown] loratadine 10 mg tablet 10 mg PO DAILY #90 tabs 09/04/23 [Rx Last Taken Unknown] spironolactone 25 mg tablet 25 mg PO DAILY 09/12/23 [History Last Taken Unknown] Allergy/AdvReac Type Severity Reaction Status Date / Time cilostazol [From Pletal] Allergy Unknown Verified 09/12/23 01:25 felodipine Allergy Hives Verified 09/12/23 01:25 levofloxacin Allergy Hives Verified 09/12/23 01:25 Sulfa (Sulfonamide Allergy Unknown Verified 09/12/23 01:25 Antibiotics) Family History Father Diabetes Cancer Prostate cancer Mother Dementia Brother Parkinsons Brother Cancer Surgical History H/O aortic aneurysm repair (11/1998) History of coronary artery stent placement (02/17/08) History of endarterectomy (07/2018) History of hernia repair History of left heart catheterization (03/2014) History of surgical procedure History of transurethral resection of prostate History of vascular surgery (08/2018) Social History household members: spouse 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 status: 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 Smoking Status: Former smoker quit date: 08/07/08 pack-years: 2 Tobacco: How many years used: 52 Electronic Cigarette Use: not used how long ago did patient quit smokin years ago alcohol intake: current alcohol intake frequency: holidays/special occasions only details: hx of alcohol abuse substance use type: does not use caffeine: No what type of physical activity do you participate in: other details: Nustep frequency: 5-6 times per week duration: 15-30 minutes/day seatbelt use: always do you feel safe at home: Yes ROS ROS ED Constitutional Constitutional ED: Denies fever(s) Eyes Eyes: Denies change in vision or discharge from eye(s) ENT ENT ED: Denies discharge from eye(s), rhinorrhea or sore throat Cardiovascular Cardiovascular: Denies chest pain or palpitations Respiratory/Chest Respiratory/Chest: Denies cough or dyspnea Gastrointestinal Gastrointestinal: Reports nausea and vomiting; Denies abdominal pain or diarrhea Genitourinary Genitourinary ED: Denies dysuria Musculoskeletal Musculoskeletal: Denies back pain or extremity pain Integumentary Denies Abrasions or rash Neurologic Neurologic: Reports headache(s) and weakness Psychiatric Psychiatric: Denies anxiety or depression Allergic/Immunologic Allergic/Immunologic ED: Denies lip swelling or urticaria EXAM Physical Exam Const Vital Signs: 09/12/23 01:18 09/12/23 01:33 09/12/23 01:30 Temperature 96.2 F L Temperature Source Temporal Pulse Rate 54 L 50 L Respiratory Rate 16 14 Blood Pressure 196/68 H 168/67 H Blood Pressure Mean 110 100 Pulse Ox 96 96 Oxygen Delivery Method Room Air Room Air Room Air 09/12/23 01:47 09/12/23 01:33 09/12/23 01:45 Temperature Temperature Source Pulse Rate 59 L 62 63 Respiratory Rate 16 12 12 Blood Pressure 178/67 H 172/68 H 171/80 H Blood Pressure Mean 104 102 110 Pulse Ox 94 96 95 Oxygen Delivery Method Room Air Room Air Room Air 09/12/23 02:00 09/12/23 02:15 09/12/23 02:30 Temperature Temperature Source Pulse Rate 63 60 57 L Respiratory Rate 22 H 17 17 Blood Pressure 166/64 H 179/61 H 181/68 H Blood Pressure Mean 98 100 105 Pulse Ox 95 95 94 Oxygen Delivery Method Room Air Room Air Room Air Positive well nourished and well developed General Appearance ED: well developed HEENT Reports moist mucous membranes Eyes EOMs intact bilaterally Chest Wall inspection of chest normal and palpation of chest normal Resp normal respiratory effort and clear to auscultation bilaterally Cardio regular rate and regular rhythm GI non-tender Palpation: soft Extremity normal to inspection Neuro Neuro Narrative: NIH equals 1 at the time of my exam, one-point for slight difficulty with finger-nose in the left arm only. Psych mental status grossly normal Skin no rashes or lesions noted MDM MDM MDM Narrative Medical decision making narrative: Prehospital EKG is appeared to show atrial fibrillation which patient I do not see has a history of. He also has a history of vascular disease with recent intervention. Patient was walking when he had sudden onset of dizziness and my initial concern was for central vertigo secondary to a stroke. Patient has no nystagmus on exam. In light of this stroke alert was initiated. History & Record Review Discussion w/independent historian: EMS personnel, Patient and Significant other Additional record(s) reviewed:: Prior ED visit and Prior labs Lab Data Attestation: I reviewed the patient's lab results. Labs: Laboratory Results - last 24 hr 09/12/23 01:40 WBC 7.0 RBC 3.29 L Hgb 8.8 L Hct 28.8 L MCV 87.5 MCH 26.7 L MCHC 30.6 L RDW Std Deviation 45.1 H RDW Coeff of Justin 14.1 Plt Count 313 MPV 10.3 Immature Gran % (Auto) 0.400 Neut % (Auto) 53.8 Lymph % (Auto) 25.5 [place] % (Auto) 14.9 H Eos % (Auto) 4.7 Baso % (Auto) 0.7 Absolute Neuts (auto) 3.7 Absolute Lymphs (auto) 1.78 Nucleated RBC % 0 PT 14.3 INR 1.1 APTT 31.3 Sodium 137 Potassium 3.9 Chloride 105 Carbon Dioxide 25.0 Anion Gap 7 BUN 39 H Creatinine 2.19 H Estim Creat Clear Calc 23.42 Est GFR (MDRD) Af Amer 37 L Est GFR (MDRD) Non-Af 31 L BUN/Creatinine Ratio 17.8 Glucose 135 H Calcium 9.3 Troponin I High Sens 19 Radiography Chest X-Ray - ED: 1 View, Read by ED Physician and Chronic Changes Diagnostic Testing: Clinical Impression(s) from Imaging Studies Brain CT 09/12/23 01:33 IMPRESSION: No CT evidence of acute intracranial hemorrhage or injury. Mild senescent changes with atherosclerosis. N.B. : The above Results were Read Back by Vipul Ybarra MD to Rosa Collins MD, and understanding confirmed on 09/12/2023 01:52:43 (ET). Electronically Signed: Vipul Ybarra MD at 1:52 EST , ADDENDUM: 09/12/23 0159 IMPRESSION: No CT evidence of acute intracranial hemorrhage or injury. Mild senescent changes with atherosclerosis. N.B. : The above Results were Read Back by Vipul Ybarra MD to Rosa Collins MD, and understanding confirmed on 09/12/2023 01:52:43 (ET). Electronically Signed: Vipul Ybarra MD at 1:52 EST , Head/Neck CTA 09/12/23 01:35 IMPRESSION: Scattered atherosclerosis with 50% stenosis of left vertebral origin. Remainder of the left vertebral artery origin is widely patent with congenital left vertebral dominance. 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 Multiple thyroid nodules are likely benign given small size relative to age. Ultrasound could further evaluate as clinically indicated. Mild scattered sinus disease. Electronically Signed: Vipul Ybarra MD at 2:35 EST , Chest X-Ray 09/12/23 02:10 IMPRESSION: Findings compatible with chronic obstructive pulmonary disease. Hazy opacification right lateral midlung, possibly possibly representing residual peripheral nodularity, with otherwise improved aeration in the mid and lower lungs. CT follow-up is recommended when clinically able for comparison with June 09, 2022 Electronically Signed: Vipul Ybarra MD at 2:42 EST , EKG Initial EKG: Attestation: I personally reviewed and interpreted this EKG as follows: Interpretation: Sinus Bradycardia (Sinus bradycardia 57 bpm with a first-degree block.) Treatment and Re-Evaluation :: CBC was normal white count 7 with a hemoglobin of 8.8. Patient has a history ofchronic anemia. Chemistry studies remarkable for BUN of 39 and creatinine 2.19. This is consistent with his baseline. Initial troponin is 19. Portable chest x- ray per my interpretation was chronic changes with atelectasis noted in the left lateral lung. EKG although reads out as atrial fibrillation I believe is actually sinus bradycardia with a first-degree AV block. I did look through thepatient's cardiac catheterization technician recordings and I do not see definite evidence of A-fib. CT of the head reveals chronic changes with no acute findings. CTA of the head and neck reveals no evidence of acute carotid or proximal intracranial artery occlusion. No focal flow-limiting stenosis. I did speak with the neurologist from [facility]. At the time of his exam patient's NIH score was 0. He did recommend observation overnight for MRI. I will speak with the hospitalist. Discharge Plan Triage Chief Complaint: Dizziness ED Provider: Rosa Collins Dx/Rx/DC Orders Clinical Impression: Vertigo Prescriptions: No Action ammonium lactate 12 % lotion 1 applic TOPICAL QD-BID PRN (Reason: dry skin ) triamcinolone acetonide [Nasacort] 55 mcg aerosol,spray 2 spray INTRANASAL DAILY PRN (Reason: allergies) (DME) handicap placcard Qty: 1 0RF Rx Instructions: Lifetime: debility coenzyme Q10 [Co Q-10] 100 mg capsule 100 mg PO DAILY ascorbate calcium (vitamin C) 500 mg tablet 500 mg PO DAILY cholecalciferol (vitamin D3) 100 mcg (4,000 unit) tablet 100 mcg (4,000 unit) tablet 100 mcg PO DAILY (DME) spacer See Rx Instructions .ROUTE .MEDSUPPLY Qty: 1 0RF Rx Instructions: As directed ropinirole 1 mg tablet 1 mg PO QHS Qty: 60 5RF Rx Instructions: administer 1-3 hours before bedtime ibuprofen 200 mg tablet 200 mg PO Q6H PRN (Reason: fever or pain) docusate sodium 100 mg capsule 100 mg PO BID pantoprazole 40 mg tablet,delayed release (DR/EC) 40 mg PO DAILY Qty: 90 1RF (DME) OneTouch Ultra Test Strip See Rx Instructions .Route Qty: 180 1RF Rx Instructions: Check twice a day. (DME) lancets Misc See Rx Instructions .Route Qty: 180 1RF Rx Instructions: twice daily insulin glargine [Lantus Solostar U-100 Insulin] 100 unit/mL (3 mL) insulin pen 15 unit subcut QAM Qty: 15 0RF aspirin 81 mg tablet,chewable 81 mg PO QHS Patient Comments: antiplatelet spironolactone 25 mg tablet 25 mg PO DAILY Patient Comments: TAKE 1 TABLET BY MOUTH DAILY. THIS IS A DOSE INCREASE albuterol sulfate [Ventolin HFA] 90 mcg/actuation HFA aerosol inhaler 2 inh INHALATION Q4H PRN (Reason: shortness of breath or wheezing) Qty: 18 6RF nitroglycerin [Nitrostat] 0.4 mg tablet, sublingual 0.4 mg SUBLINGUAL Q5-15M PRN (Reason: chest pain) Qty: 25 2RF ipratropium-albuterol 0.5 mg-3 mg(2.5 mg base)/3 mL solution for nebulization 3 ml inhalation 4X/DAY PRN PRN (Reason: shortness of breath or wheezing) Qty: 90 6RF ipratropium bromide 42 mcg (0.06 %) spray,non-aerosol 2 spray INTRANASAL TID-QID PRN (Reason: allergy symptoms) Qty: 15 6RF Rx Instructions: nasal drip - administer into each nostril; wait 30 seconds between sprays albuterol sulfate 2.5 mg /3 mL (0.083 %) solution for nebulization 2.5 mg inhalation Q4H PRN (Reason: Sob &/Or Wheezing) Qty: 180 11RF ipratropium bromide 0.02 % solution 2.5 ml inhalation Q6H PRN (Reason: shortness of breath or wheezing) Qty: 150 11RF furosemide 40 mg tablet 40 mg PO .COMPLEX Qty: 180 3RF Rx Instructions: 40 mg orally daily. Take 40 mg BID if weight > 190lbs; montelukast 10 mg tablet 10 mg PO QHS Qty: 90 3RF carvedilol 25 mg tablet 25 mg PO BID Qty: 180 3RF Rx Instructions: must administer with a meal/food atorvastatin 40 mg tablet 40 mg PO QODAY Qty: 45 3RF hydralazine 100 mg tablet 100 mg PO TID Qty: 360 3RF Farxiga 10 mg tablet 10 mg PO DAILY Qty: 90 0RF isosorbide mononitrate 30 mg tablet extended release 24 hr 30 mg PO DAILY Qty: 90 1RF amlodipine 10 mg tablet 10 mg PO DAILY Qty: 90 3RF loratadine 10 mg tablet 10 mg PO DAILY Qty: 90 0RF Primary Care Provider: Riaz Garrison Referrals: Riaz Garrison MD [Primary Care Provider] - Disposition Disposition: [facility] What to do if you have Problems For any increased pain, shortness of breath, bleeding, nausea or vomiting, chestpain, or any unexpected problems, contact your Primary Care Provider. Call [facility] ([phone]) or report to the closest Emergency Room. Call 911 if necessary. 09/12/23 0538 <Electronically signed by Rosa Collins MD> Cosigner Signature (if applicable): CC: Dr. Riaz Garrison MD ~ Signed [facility] Work Phone: [phone] 912-538011-15-2023 History of Present illness Narrative* Rene Zapata MD - 08/21/2023 1:20 PM EST Images from the original note were not included. Heart , Vascular [facility] Thor[facility] DEPARTMENT OF VASCULAR SURGERY OUTPATIENT VISIT DATE August 21, 2023 OUTPATIENT VISIT TYPE CONSULTATION PRIMARY CARE PHYSICIAN: Riaz Garrison MD REFERRING PROVIDER: Darryl Mallory [facility] [place] [phone] Consult requested for an opinion regarding the evaluation and treatment of the above. My final impression and recommendations will be communicated back to the requesting physician by way of the shared medical record or letter via [place] mail. CHIEF COMPLAINT: Bilateral LE claudication HISTORY OF PRESENT ILLNESS: Desiree Ames is a 88 year old male with a past medical and surgical history as detailed below who presents today for consultation for an opinion regarding management of the above stated chief complaint. Claudication: yes, at approx 25' L > R , worsening over the past year, he is now very limited inhis ability to ambulate 2/2 cramping pain in the calves. In addition, on the left he describes a throbbing type pain in the left thigh. Unable to walk up 2 flights of stairs due to weakness and leg pain. Underwent aortic duplex and PVR studies in February 2023 showing bilateral external iliac artery stenosis with a left lower extremity MARILEE of 0.56 and a right lower extremity MARILEE of 0.79 with moderately diminished waveforms. Denies Rest pain / tissue loss / gangrene. He has a past medical history significant for insulin-dependent type 2 diabetes, acute hypoxic respiratory failure, chronic pulmonary edema, hypertension, COPD, stage IIIa CKD, and heart failure with preserved ejection fraction. Denies abdominal pain, backpain, chest pain. He also gets easily short [...] by mouth at bedtime as needed. Dr. Mat albuterol HFA (PROVENTIL HFA, VENTOLIN HFA) 90 [...] imaging exam. Discontinue saline lock post exam. IfPt. has a central line or IVAD, may [...] tablet by mouth twice daily with meals. 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 Hilliard. Coronary atherosclerosis of unspecified type of vessel, [place] or graft 06/13/2005 Diverticulitis of colon (without [...] MAJOR SURGERY 1998 With inguinal hernia repair [facility] INCL FLUOR GDNCE DX W/CELL WASHG [...] artery stenosis with a left lower extremity MARILEE of 0.56 and a right lower extremity MARILEE of 0.79 with moderately diminished waveforms. CARDIOPULMONARY STUDIES: ECHO: LV Ejection Fraction (%) Date Value 08/08/2018 60 IMPRESSION: Desiree Ames is a 88 year old male seen in consultation for lifestyle limiting worsening claudication L > R reporting symptom onset at 25 [address]. Duplex imaging and CT from 06/06/2022 showing bilateral aortoiliac occlusive disease. left lower extremity MARILEE of 0.56 and a right lower extremity MARILEE of 0.79 with moderately diminished waveforms. PLAN and RECOMMENDATIONS: -We will plan for aortoiliac angiogram with possible left-sided intervention -Risks, benefits, alternatives and personnel discussed with patient who consents to proceed. -Continue aspirin and high dose statin -Prescription grade compression socks at all times during the day (ordered) - Recommend continuing medical optimization of cardiovascular risk factors at the direction of Riaz Garrison MD Thank you for the opportunity to contribute to Mr. Ames's care. Please do not hesitate to call with any questions or concerns. Rene Zapata MD Vascular Surgery Staff documented in this encounterUniversity Hospitals Geaug[facility] Center11-09-2023 Miscellaneous Notes* Telephone Encounter - Lina Goss - 08/15/2023 12:41 PM EST Patient scheduled * Telephone Encounter - Triny Garcia - 08/15/2023 9:35 AM EST Patient called in stating someone from Dr. Mallory's office called so I'm returning the call. Please advise documented in this encounterUniversity Hospitals Geauga Medical Center08-16-2023 Miscellaneous Notes* Telephone Encounter - Lina Goss - 05/22/2023 11:17 AM EDT Spoke with patient and transferred to central scheduling to schedule CT * Telephone Encounter - Lina Goss - 05/14/2023 9:07 AM EDT Patient calling he would not like to get scheduled for CT with runoff as recommended in March Please place order will call patient to schedule Order pending documented in this encounterUniversity Hospitals Geauga Medical Center06-23-2023 History of Present illness Narrative* Vipul Richard - 03/29/2023 2:11 PM EDT Last saw pcp: 07/04/22 Subjective: Patient presents [...] toes when tested with the 5.07 SWM bilateral.Vibratory sensation is decreased at the hallux IPJ [...] mellitus (HCC) (I73.9) PAD (peripheral artery disease) (FORMERLY [facility]) Plan: Patient was seen and evaluated. Nails [...] is to RTC in 3-4 months. Vipul Richard DPM * Chelsie Bradshaw LPN - 03/29/2023 2:01 PM EDT AMB ROOMING INTAKE FLOWSHEET DATA Pain Pain Level: 3 Pain Location: Other: See Comment (bilateral feet) Description: Sharp Duration Units: Years Frequency: Intermittent Intervention/Comfort measure: Reposition, Relaxation Patient presents with: Left Foot - Established Patient, Follow Up, Pain Right Foot - Established Patient, Follow Up, Diabetic Foot Care, Pain Chelsie Bradshaw LPN documented in this encounterUniversity Hospitals Geauga Medical Center06-23-2023 Instructions* Patient Instructions* Vipul Richard - 03/29/2023 2:11 PM EDT Diabetes Foot [...] it. Apply a bandage and wear a differentpair of shoes. Take Care of Your Toenails Cut toenails after bathing, when they are soft. Cut toenails straight across and smooth with a nail file. Avoid cutting into the corners of toes. Do not cut cuticles. If you have neuropathy (or decreased sensation in your feet) a instructor dramatic arts should always cut your toenails. Be Careful [...] make sure there are no foreign objects orrough areas. Avoid tight socks. Wear natural-fiber socks [...] Go to your health care provider or instructor dramatic arts to treat these conditions. documented in this encounterUniversity Hospitals Geauga Medical Center06-22-2023 Miscellaneous Notes* Telephone Encounter - JOSE Rico - 03/28/2023 11:26 AM EDT Spoke with Desiree to see how his legs were feeling [...] or getting worse. Encounter closed. JOSE Rico * Telephone Encounter - JSOE Rico - 02/08/2023 8:[address] abdomen/pelvis with contrast imported from [facility] () for review. Desiree would like to be called with results. Please review and advise. JOSE Rico documented in this encounterUniversity Hospitals Geauga Medical Center05-02-2023 Miscellaneous Notes* Telephone Encounter - JOSE Rico - 02/05/2023 2:51 PM EDT Opened in error documented in this encounterUniversity Hospitals Geauga Medical Center05-02-2023 History of Present illness Narrative* Darryl Mallory DO - 02/05/2023 10:09 AM EDT This office note has been dictated. Darryl Mallory DO documented in this encounterUniversity Hospitals Geauga Medical Center03-10-2023 History of Present illness Narrative* Vipul Richard - 12/14/2022 2:06 PM EST Last time saw PCP: not documented in [...] Objective: Patient presents to clinic ambulating in critical access hospitalker Vasc: DP and PT pulses are nonpalpable bilateral. CFT is less than 5 seconds bilateral. Skin temperature is warm to cool proximal to distal bilateral. There is mild edema or varicosities noted. Non-Invasive Vascular Laboratory [facility] Lower Extremity Arterial Physiology Study Bilateral/Complete Date of service/time: 01/08/2022 8:40:05 AM Name: MR. DESIREE AMES Date of : 1935 Age: 86 years [...] 149 mmHg Ankle dorsalis pedis: 125 mmHg MARILEE: 0.84 Ankle posterior tibial: 130 mmHg MARILEE: 0.87 Digit: 90 mmHg Right PVR Waveforms Ankle: Mildly dampened. Transmetatarsal: Mildly dampened. Digit: Mildly dampened. LEFT SIDE AT REST Left Doppler Waveforms Dorsalis pedis: Monophasic. Post tibial: Monophasic. Left Pressures Brachial: 145 mmHg Ankle dorsalis pedis: 96 mmHg MARILEE: 0.64 Ankle posterior tibial: 102 mmHg MARILEE: 0.68 Digit: 97 mmHg Left PVR Waveforms [...] Moderate disease at rest. Technologist: Scarlet Obrien T, RDMS Ordering physician: DARRYL MALLORY Interpreting physician: RANJEET Clements DO : Neuro: Protective sensation is absent to the foot and toes when tested with the 5.07 SWM bilateral.Vibratory sensation is absent at the hallux IPJ bilateral. The hallux is downgoing bilateral. Derm: Nails 1-5 b/l are painful, discolored-yellow, thick, crumbly, dystrophic and with subungal debris. Skin is thin, dry and pallor and hair growth is absent bilateral. There are no hyperkeratosis,ulcerations, scars, verruca or other lesions noted. Ortho: [...] mellitus (HCC) (I73.9) PAD (peripheral artery disease) ([facility]) Plan: Patient was seen and evaluated. Nails 1-5 bilateral were debrided in length and thickness. Small bleed to left 2nd toe. Patient wasinstructed on the continued importance of diabetic foot care along with proper diet and keeping their blood sugar under control to prevent complications. Patient is to RTC in 3-4 months. Vipul Richard DPM * Chelsie Bradshaw LPN - 12/14/2022 1:59 PM EST AMB ROOMING INTAKE FLOWSHEET DATA Patient presents with: Left Foot - Established Patient, Follow Up, Diabetic Foot Care Right Foot - Established Patient, Follow Up, Diabetic Foot Care Chelsie Bradshaw LPN documented in this encounterUniversity Hospitals Geauga Medical Center03-10-2023 Instructions* Patient Instructions* Vipul Richard - 12/14/2022 2:06 PM EST Diabetes Foot [...] it. Apply a bandage and wear a differentpair of shoes. Take Care of Your Toenails Cut toenails after bathing, when they are soft. Cut toenails straight across and smooth with a nail file. Avoid cutting into the corners of toes. Do not cut cuticles. If you have neuropathy (or decreased sensation in your feet) a instructor dramatic arts should always cut your toenails. Be Careful [...] make sure there are no foreign objects orrough areas. Avoid tight socks. Wear natural-fiber socks [...] Go to your health care provider or instructor dramatic arts to treat these conditions. documented in this encounterUniversity Hospitals Geauga Medical Center12-01-2022 History of Present illness Narrative* Vipul Richard - 09/06/2022 11:01 AM EST Last time saw pcp: not documented in [...] toes when tested with the 5.07 SWM bilateral.Vibratory sensation is absent at the hallux IPJ [...] mellitus (HCC) (I73.9) PAD (peripheral artery disease) ([facility]) Plan: Patient was seen and evaluated. Nails 1-5 bilateral were debrided in length and thickness. Patient was instructed on the continued importance of diabetic foot care along with proper diet and keeping their blood sugar under control to prevent complications. Patient is to RTC in 3-4 months. Vipul Richard DPM * Lashanda Murillo RN - 09/06/2022 10:51 AM EST Patient presents with: Right Foot - Established Patient, Follow Up, nail care Left Foot - Established Patient, Follow Up, nail care Patient presents for nail care. Denies any pain in his feet at this time. documented in this encounterUniversity Hospitals Geauga Medical Center12-01-2022 Instructions* Patient Instructions* Vipul Richard - 09/06/2022 11:01 AM EST Diabetes Foot [...] it. Apply a bandage and wear a differentpair of shoes. Take Care of Your Toenails Cut toenails after bathing, when they are soft. Cut toenails straight across and smooth with a nail file. Avoid cutting into the corners of toes. Do not cut cuticles. If you have neuropathy (or decreased sensation in your feet) a instructor dramatic arts should always cut your toenails. Be Careful [...] make sure there are no foreign objects orrough areas. Avoid tight socks. Wear natural-fiber socks [...] Go to your health care provider or instructor dramatic arts to treat these conditions. documented in this encounterUniversity Hospitals Geauga Medical Center08-25-2022 History of Present illness Narrative* Vipul Richard - 05/31/2022 12:10 PM EDT Last saw Dominique Reese: 05/14/22 Subjective: Patient [...] sneakers Vasc: DP and PT pulses are faintly palpable bilateral. CFT is less than 5 seconds bilateral. Skin temperature is warm to cool proximal to distal bilateral. There is mild edema or varicosities noted. Neuro: Protective sensation is intact to the foot and toes when tested with the 5.07 SWM bilateral.Vibratory sensation is decreased at the hallux IPJ [...] is to RTC in 3-4 months. Vipul Richard DPM documented in this encounterUniversity Hospitals Geauga Medical Center08-25-2022 Instructions* Patient Instructions* Vipul Richard - 05/31/2022 12:10 PM EDT Diabetes Foot [...] it. Apply a bandage and wear a differentpair of shoes. Take Care of Your Toenails Cut toenails after bathing, when they are soft. Cut toenails straight across and smooth with a nail file. Avoid cutting into the corners of toes. Do not cut cuticles. If you have neuropathy (or decreased sensation in your feet) a instructor dramatic arts should always cut your toenails. Be Careful [...] make sure there are no foreign objects orrough areas. Avoid tight socks. Wear natural-fiber socks [...] Go to your health care provider or instructor dramatic arts to treat these conditions. documented in this encounterUniversity Hospitals Geauga Medical Center08-19-2022 Instructions* Patient Instructions* Emeka Horn MD - 05/25/2022 4:55 PM EDT ISOSORBIDE MONONITRATE 30 MG DAILY is prescribed from here in [facility]. CHECK WITH DR. MATOS IF TAMSULOSIN (Flomax) prescribed from the ER, is still needed. documented in this encounterUniversity Hospitals Geauga Medical Center08-19-2022 History of Present illness Narrative* Emeka Horn MD - 05/25/2022 4:28 PM EDT This note was created using GradeBe[employer]. Subjective Transitional Care Management Progress Note The patients TCM visit was performed within the 14 days of discharge. Patient's Date of discharge: 05/16/2022 Date of initial coordinator contact after discharge: 05/18/2022 Discharge diagnosis: acute respiratory failure with hypoxia, pulmonary edema, HFpREF, hypertensive emergency. Medication review completed Yes In follow-up of hospitalization, Desiree Ames is a 86 year old male with [...] and CHF on 05/22/22 and discharged home. Desiree and spouse voiced frustration. His overall condition was going downhill. After his TCU stayfor rehab s/p TURP, he has been to the ER for various issues including constipation, and urine retention. 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 Matos, who proceeded with what I construed to be a urethral dilatation. However, he was also found to have neurogenic bladder and was started on self straight catheterization 4 times a day. He was on cancellation list for colonoscopy. Desiree and spouse voiced frustration about deteriorating conditions [...] (2L) half the jug the second night [employer] sc[employer] Dx: Z74.90, R26.89, I73.9, J44.1, M54.5, G89.29 Ghwlgs-Eeswkuw-Fsx Palm-Min 17 (PROSTATE THERAPY) cap Take 2 [...] 428.9, ICD10: I50.31 Controlled. Emeka Horn MD * Kady Wright LPN - 05/25/2022 3:56 PM EDT TRANSITION CARE MANAGEMENT (TCM) INITIAL CONTACT Pilot Control Operator Helper Outreach Provider Action/FYI: TCM Initial contact with patient post discharge, spoke to patient. Patient identified by name and . TRANSITION CARE MANAGEMENT INITIAL OUTREACH DOCUMENTATION: Date of Outreach: 05/18/2022 Outreach Attempt 1: Contact Made Date of Discharge 05/16/2022 Some recent data might be hidden SUMMARY: -Pt discharged from [facility] on 05/16/22. -Admitted for: decompensated HFPEF [...] for provider to review documented in this encounterUniversity Hospitals Geauga Medical Center08-08-2022 History of Present illness Narrative* Dominique Reese APRN.DIRECTOR OF STRATEGY & MOBILE - 05/14/2022 10:40 AM EDT SUBJECTIVE: LDL CHOLESTEROL due on 03/27/2022 HPI Desiree Ames is a 86 year old male. PMH [...] he has had urinary retention, seen at [facility] ER then by Dr Noriega. Reports [...] cream Apply to affected area as needed. [employer] Power scooter Dx: Z74.90, R26.89, I73.9, J44.1, M54.5, G89.29 Sdurgn-Aipqiny-Ves Palm-Min 17 (PROSTATE THERAPY) cap Take 2 [...] Coronary atherosclerosis of unspecified type of vessel, upper [place] or graft 06/13/2005 Diverticulitis of colon (without [...] - XR ABDOMEN 1V SUPINE Dominique Reese APRN.CNS documented in this encounterUniversity Hospitals Geauga Medical Center07-27-2022 History of Present illness Narrative* Mervat Mirza RT(R) - 05/02/2022 10:20 AM EDT Radiology Service Progress Note PATIENT NAME: Desiree Ames DATE OF SERVICE: May 02, 2022 TIME: 10:39 AM PATIENT IDENTITY VERIFICATION COMPLETED USING TWO (2) IDENTIFIERS: Name and Date of confirmedby patient verbally. FALL SCREENING: Has the patient [...] 02, 2022 10:39 AM documented in this encounterUniversity Hospitals Geauga Medical Center07-21-2022 History of Present illness Narrative* RT Philippe(R) - 04/26/2022 2:00 PM EDT Radiology Service Progress Note PATIENT NAME: Desiree Ames DATE OF SERVICE: April 26, 2022 TIME: 2:05 PM PATIENT IDENTITY VERIFICATION COMPLETED USING TWO (2) IDENTIFIERS: Name and Date of confirmedby patient verbally. FALL SCREENING: Has the patient had 2 falls in the last year or 1 fall with injury or currently using an Ambulatory Assistive Device (Walker, Cane, Wheelchair, Crutches, etc.)? Yes, Patient High Riskfor Falls What interventions were put in place to prevent falls during this visit? Increased Observations by Caregivers PATIENT GENDER DATA: Male PATIENT RELEVANT IMPLANT DATA REVIEWED: Not Applicable RADIOLOGY DEPARTMENT: General X-ray: Exam(s) Completed: Abdomen X-Ray: Abdomen PERIPHERAL IV DATA: Not applicable SIGNED BY: RT Philippe(R) April 26, 2022 2:05 PM documented in this encounterUniversity Hospitals Geauga Medical Center07-21-2022 History of Present illness Narrative* Colton Mendez MD - 04/26/2022 1:39 PM EDT HISTORY AND PHYSICAL Desiree Ames 1935 REFERRING PHYSICIAN: Dominique Reese APRN.DIRECTOR OF STRATEGY & MOBILE CHIEF COMPLAINT: Consult (Constipation) HPI: The patient is a 86 year old male referred for endoscopy. Desiree notes recent issues with constipation. He had [...] notes no history of upper GI complaints. Desiree has undergone prior endoscopy. As noted above [...] Coronary atherosclerosis of unspecified type of vessel, upper skagit or graft 06/13/2005 Diverticulitis of colon (without [...] MAJOR SURGERY 1998 With inguinal hernia repair [facility] INCL FLUOR GDNCE DX W/CELL WASHG [...] cream Apply to affected area as needed. [employer] Power scooter Dx: Z74.90, R26.89, I73.9, [...] to printed prep instructions from your provider. Mgsmhq-Febqate-Ckq Palm-Min 17 (PROSTATE THERAPY) cap Take 2 [...] entered by the nurse and reviewed by wv Nursing Notes: Liz Murcia RN 04/26/2022 1:36 [...] pain, denies heart disease, NOTES high blood pressure,NOTEScardiac stent, NOTES prior heart attack, denies irregular heart beat, NOTES high cholesterol, NOTESpoor circulation, denies heart failure, other cardiac issues, NOTES claudication, denies cold feet,denies peripheral arterial stent. Respiratory: The patient denies [...] resp. rate 20, height 177.8 cm (5' 10), weight 88 kg (194 lb), SpO2 95 %. Body mass index is 27.84 kg/m . HEENT: Normal cephalic, ataumatic, pupils are equally round, sclera are anicteric, mucous membranesare moist, oropharynx is clear. Neck has no [...] completed. Colton Mendez MD documented in this encounterUniversity Hospitals Geauga Medical Center07-21-2022 Instructions* Patient Instructions* Colton Mendez MD - 04/26/2022 1:34 PM EDT Images from the original note were not included. Bowel Preparation Instructions for: Golytely, Nulytely, Trilyte or Colyte (polyethylene glycol 3350and electrolytes) IF YOU DO NOT FOLLOW THESE DIRECTIONS, YOUR COLONOSCOPY WILL BE CANCELLED. [place] Instructions: Your bowel must be empty so [...] If you do not have a responsible charter bus driver (family member or friend) with you to take you home, your exam cannot be done with sedation and will be cancelled. Please bring a list of all of your current medications, including any Over-the Counter medications with you. Medications If you take insulin, diabetic medications or blood thinners such as Coumadin (warfarin), Plavix (clopidogrel), Ticlid (ticlopidine hydrochloride), Agrylin (anagrelide), Xarelto (Rivaroxaban), Pradaxa(Dabigatran), Eliquis (Apixaban), and Effient (Prasugrel). You MUST [...] Golytely, Nulytely, Trilyte or Colyte (polyethylene glycol 3350and electrolytes) Three (3) Days Before Your Colonoscopy [...] until midnight. 2 09/2019 documented in this encounterUniversity Hospitals Geauga Medical Center07-21-2022 Nurse Note* Liz Murcia RN - 04/26/2022 1:34 PM EDT REVIEW OF SYSTEMS: General: The patient NOTES fatigue, denies weight loss, denies weight gain, NOTES feeling hot, and NOTES feelings of cold. Eyes: The patient denies glaucoma, NOTES eye injury/surgery, wears glasses or contacts. Ear/Nose/Throat: The patient NOTES allergies, NOTES hayfever, denies ear infections, and denies bloody noses. Cardiovascular: The patient NOTES chest pain, denies heart disease, NOTES high blood pressure,NOTEScardiac stent, NOTES prior heart attack, denies irregular heart beat, NOTES high cholesterol, NOTESpoor circulation, denies heart failure, other cardiac issues, NOTES claudication, denies cold feet,denies peripheral arterial stent. Respiratory: The patient denies [...] 12/05/2015 Liz Murcia RN documented in this encounterUniversity Hospitals Geauga Medical Center07-07-2022 Instructions* Patient Instructions* Dominique Reese APRN.CNS - 04/12/2022 11:16 AM EDT Drink about 64 ounces of fluid daily OK to take miralax once or twice daily as needed. OK to try metamucil gummies. Schedule appointment with general surgery to discuss colonoscopy documented in this encounterUniversity Hospitals Geauga Medical Center07-07-2022 History of Present illness Narrative* Dominique Reese APRN.CNS - 04/12/2022 10:52 AM EDT SUBJECTIVE: LDL CHOLESTEROL due on 03/27/2022 HPI Desiree Ames is a 86 year old male. PMH [...] docusate PCP noted could consider lubiprostone. Colonoscopy 2016, polyps noted, 5 year follow up recommended; [...] cream Apply to affected area as needed. [employer] Power scooter Dx: Z74.90, R26.89, I73.9, J44.1, M54.5, G89.29 Lybony-Zvxljws-Txr Palm-Min 17 (PROSTATE THERAPY) cap Take 2 [...] Coronary atherosclerosis of unspecified type of vessel, upper skagit or graft 06/13/2005 Diverticulitis of colon (without [...] about obstruction. Notes nausea and vomiting occasionally presentwhen he is constipated and unable to pass stool in usual quantity. Note colonoscopy 2016 at [facility], polyps noted. 5-year follow-up recommended. Recommend he schedule this at his earliest convenience. Advance his diet slowly, start with easy to digest foods such as mashed potatoes, soups, smoothies or similar. Drink about 64 ounces of fluid daily OK to take miralax once or twice daily as needed. OK to try metamucil gummies. Schedule appointment with general surgery to discuss colonoscopy. Dominique Reese APRN.KORIN Medical Decision Making: Problems: Moderate: New problem with uncertain prognosis Data: Unique test(s) ordered: 1 Risk: Moderate: Drug management Medical Decision Making Level: 4 - Moderate documented in this encounterUniversity Hospitals Geauga Medical Center06-22-2022 History of Present illness Narrative* Emeka Horn MD - 03/28/2022 1:33 PM EDT This note was created using GradeBeam. Subjective Desiree Ames is a 86 year old male. He had TURP 03/07/22. He was admitted 03/09- 03/22/22 for debility. He was back home now and going to [facility] for outpatient PT. His only complaints were dysuria and constipation. He sees Dr. Matos next week. Review of Systems Constitutional: Negative [...] Disease) Stage 3, Gfr 30-59 Ml/Min (Hcc) Current Outpatient Medications Medication Sig metFORMIN (GLUCOPHAGE) [...] cream Apply to affected area as needed. [employer] Power scooter Dx: Z74.90, R26.89, I73.9, J44.1, M54.5, G89.29 Zxlphd-Lcucvjp-Aab Palm-Min 17 (PROSTATE THERAPY) cap Take 2 [...] daily. Emeka Horn MD documented in this encounterUniversity Hospitals Geauga Medical Center05-04-2022 History of Present illness Narrative* Samantha Older, LSAT INSTRUCTOR.MANAGER VEHICLE - 02/07/2022 9:45 AM EDT CC: Patient presents with: F/U 6 months HPI Desiree Ames is a 86 year old male who presents today for above. Patient reports recurrent UTI's, was referred to urologist Dr. Matos. He will have cystoscopy nextweek, currently on antibiotics. Checking fasting blood sugars [...] cough associated with COPD is overall stable, grants specialist is Dr. Rivero. Using Symbicort and albuterol nebulizer as instructed. Hehas chronic BLE edema which is overall stable. 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 REVIEW OF SYSTEMS General: no fevers, no [...] Coronary atherosclerosis of unspecified type of vessel, upper skagit or graft 06/13/2005 Diverticulitis of colon (without [...] MAJOR SURGERY 1998 With inguinal hernia repair [facility] INCL FLUOR GDNCE DX W/CELL WASHG [...] cream Apply to affected area as needed. [employer] Power scooter Dx: Z74.90, R26.89, I73.9, J44.1, M54.5, G89.29 Hgdrcm-Yhuwshl-Qir Palm-Min 17 (PROSTATE THERAPY) cap Take 2 [...] Patient agreeable to treatment plan. Samantha Aguirre APRN.DES documented in this encounterUniversity Hospitals Geauga Medical Center05-04-2022 Nurse Note* Flaco Maldonado Ma - 02/07/2022 9:40 AM EDT 02/07/2022: Home BP Cuff Validated. Home BP: 157/101 HR 89 Office BP: 158/74 HR 60 documented in this encounterUniversity Hospitals Geauga Medical Center04-29-2022 History of Present illness Narrative* Vipul Richard - 02/02/2022 1:47 PM EDT Last saw Samantha Aguirre: 08/16/21 Subjective: Patient [...] Objective: Patient presents to clinic ambulating in [facility] Vasc: DP and PT pulses are nonpalapble bilateral. CFT is less than 5 seconds bilateral. Skin temperature is warm to cool proximal to distal bilateral. There is + edema or varicosities noted. Neuro: Protective sensation is intact to the foot and toes when tested with the 5.07 SWM bilateral.Vibratory sensation is absent at the hallux IPJ [...] mellitus (HCC) (I73.9) PAD (peripheral artery disease) ([facility]) Plan: Patient was seen and evaluated. Nails 1-5 bilateral were debrided in length and thickness. Small bleed to right 4th toe. Patient was instructed on the continued importance of diabetic foot care along with proper diet and keeping their blood sugar under control to prevent complications. Patient is to RTC in 3-4 months. Vipul Richard DPM * Fanny Barnett RN - 02/02/2022 1:38 PM EDT Patient presents with: Left Foot - Established Patient, Nail Care Right Foot - Established Patient, Nail Care documented in this encounterUniversity Hospitals Geauga Medical Center04-29-2022 Instructions* Patient Instructions* Vipul Richard - 02/02/2022 1:47 PM EDT Diabetes Foot [...] it. Apply a bandage and wear a differentpair of shoes. Take Care of Your Toenails Cut toenails after bathing, when they are soft. Cut toenails straight across and smooth with a nail file. Avoid cutting into the corners of toes. Do not cut cuticles. If you have neuropathy (or decreased sensation in your feet) a instructor dramatic arts should always cut your toenails. Be Careful [...] make sure there are no foreign objects orrough areas. Avoid tight socks. Wear natural-fiber socks [...] Go to your health care provider or instructor dramatic arts to treat these conditions. documented in this encounterUniversity Hospitals Geauga Medical Center04-05-2022 History of Present illness Narrative* Darryl Mallory DO - 01/09/2022 9:30 AM EDT This office note has been dictated. Darryl Mallory DO documented in this encounterUniversity Hospitals Geauga Medical Center03-24-2022 Miscellaneous Notes* Telephone Encounter - KIMBER Rico - 12/28/2021 10:56 AM EDT Perfect! Thank you! * Telephone Encounter - Cassie Dueñas - 12/28/2021 10:39 AM EDT Spoke with patient and rescheduled AAA and scheduled PVR on 01/08/22. Cassie Dueñas * Telephone Encounter - KIMBER Rico - 12/28/2021 10:23 AM EDT This patient needs additional testing, PVR- order in placed, scheduled prior to appointment. Also the AAA testing is scheduled after the visit and that does not work. Please schedule both tests priorto the appointment. Thank you! documented in this encounterUniversity Hospitals Geauga Medical Center09-05-2018 History of Past illness Narrative* Problem Noted Date Resolved Date PAD (peripheral artery disease) 06/11/2018 10/29/2018 Overview: Added automatically from request for surgery [id number] Last Assessment & Plan: S/P Surgery. Continue [...] of this encounter (statuses as of 12/28/2021) [facility]09-05-2018 History of Past illness Narrative* Problem Noted Date Resolved Date PAD (peripheral artery disease) 06/11/2018 10/29/2018 Overview: Added automatically from request for surgery [id number] Last Assessment & Plan: S/P Surgery. Continue [...] of this encounter (statuses as of 01/09/2022) [facility]09-05-2018 History of Past illness Narrative* Problem Noted Date Resolved Date PAD (peripheral artery disease) 06/11/2018 10/29/2018 Overview: Added automatically from request for surgery [id number] Last Assessment & Plan: S/P Surgery. Continue [...] of this encounter (statuses as of 02/02/2022) [facility]09-[facility]-2018 History of Past illness Narrative* Problem Noted Date Resolved Date PAD (peripheral artery disease) 06/11/2018 10/29/2018 Overview: Added automatically from request for surgery [id number] Last Assessment & Plan: S/P Surgery. Continue [...] of this encounter (statuses as of 02/07/2022) [facility] History of Past illness Narrative* Problem Noted Date Resolved Date PAD (peripheral artery disease) 06/11/2018 10/29/2018 Overview: Added automatically from request for surgery [id number] Last Assessment & Plan: S/P Surgery. Continue [...] of this encounter (statuses as of 03/28/2022) [facility]09-[facility] History of Past illness Narrative* Problem Noted Date Resolved Date PAD (peripheral artery disease) 06/11/2018 10/29/2018 Overview: Added automatically from request for surgery [id number] Last Assessment & Plan: S/P Surgery. Continue [...] of this encounter (statuses as of 04/12/2022) [facility]09-[facility] History of Past illness Narrative* Problem Noted Date Resolved Date PAD (peripheral artery disease) 06/11/2018 10/29/2018 Overview: Added automatically from request for surgery [id number] Last Assessment & Plan: S/P Surgery. Continue [...] of this encounter (statuses as of 04/26/2022) [facility]09[facility] History of Past illness Narrative* Problem Noted Date Resolved Date PAD (peripheral artery disease) 06/11/2018 10/29/2018 Overview: Added automatically from request for surgery [id number] Last Assessment & Plan: S/P Surgery. Continue [...] of this encounter (statuses as of 04/27/2022) [facility] History of Past illness Narrative* Problem Noted Date Resolved Date PAD (peripheral artery disease) 06/11/2018 10/29/2018 Overview: Added automatically from request for surgery [id number] Last Assessment & Plan: S/P Surgery. Continue [...] of this encounter (statuses as of 05/03/2022) [facility] History of Past illness Narrative* Problem Noted Date Resolved Date PAD (peripheral artery disease) 06/11/2018 10/29/2018 Overview: Added automatically from request for surgery [id number] Last Assessment & Plan: S/P Surgery. Continue [...] of this encounter (statuses as of 05/14/2022) [facility] History of Past illness Narrative* Problem Noted Date Resolved Date PAD (peripheral artery disease) 06/11/2018 10/29/2018 Overview: Added automatically from request for surgery [id number] Last Assessment & Plan: S/P Surgery. Continue [...] of this encounter (statuses as of 05/27/2022) [facility] History of Past illness Narrative* Problem Noted Date Resolved Date PAD (peripheral artery disease) 06/11/2018 10/29/2018 Overview: Added automatically from request for surgery [id number] Last Assessment & Plan: S/P Surgery. Continue [...] of this encounter (statuses as of 05/31/2022) [facility] of Past illness Narrative* Problem Noted Date Resolved Date PAD (peripheral artery disease) 06/11/2018 10/29/2018 Overview: Added automatically from request for surgery [id number] Last Assessment & Plan: S/P Surgery. Continue [...] of this encounter (statuses as of 09/06/2022) [facility] of Past illness Narrative* Problem Noted Date Resolved Date PAD (peripheral artery disease) 06/11/2018 10/29/2018 Overview: Added automatically from request for surgery [id number] Last Assessment & Plan: S/P Surgery. Continue [...] of this encounter (statuses as of 12/14/2022) [facility] of Past illness Narrative* Problem Noted Date Resolved Date PAD (peripheral artery disease) 06/11/2018 10/29/2018 Overview: Added automatically from request for surgery [id number] Last Assessment & Plan: S/P Surgery. Continue [...] of this encounter (statuses as of 02/05/2023) [facility] of Past illness Narrative* Problem Noted Date Resolved Date PAD (peripheral artery disease) 06/11/2018 10/29/2018 Overview: Added automatically from request for surgery [id number] Last Assessment & Plan: S/P Surgery. Continue [...] of this encounter (statuses as of 02/07/2023) [facility] of Past illness Narrative* Problem Noted Date Resolved Date PAD (peripheral artery disease) 06/11/2018 10/29/2018 Overview: Added automatically from request for surgery [id number] Last Assessment & Plan: S/P Surgery. Continue [...] of this encounter (statuses as of 03/28/2023) [facility] of Past illness Narrative* Problem Noted Date Resolved Date PAD (peripheral artery disease) 06/11/2018 10/29/2018 Overview: Added automatically from request for surgery [id number] Last Assessment & Plan: S/P Surgery. Continue [...] of this encounter (statuses as of 03/29/2023) [facility] of Past illness Narrative* Problem Noted Date Diagnosed Date Resolved Date PAD (peripheral artery disease) 06/11/2018 10/29/2018 Overview: Added automatically from request for surgery [id number] Last Assessment & Plan: S/P Surgery. Continue [...] of this encounter (statuses as of 05/23/2023) [facility] of Past illness Narrative* Problem Noted Date Diagnosed Date Resolved Date PAD (peripheral artery disease) 06/11/2018 10/29/2018 Overview: Added automatically from request for surgery [id number] Last Assessment & Plan: S/P Surgery. Continue [...] of this encounter (statuses as of 08/15/2023) [facility] of Past illness Narrative* Problem Noted Date Diagnosed Date Resolved Date PAD (peripheral artery disease) 06/11/2018 10/29/2018 Overview: Added automatically from request for surgery [id number] Last Assessment & Plan: S/P Surgery. Continue [...] of this encounter (statuses as of 08/22/2023) [facility] of Past illness Narrative* Problem Noted Date Diagnosed Date Resolved Date PAD (peripheral artery disease) 06/11/2018 10/29/2018 Overview: Added automatically from request for surgery [id number] Last Assessment & Plan: S/P Surgery. Continue [...] of this encounter (statuses as of 09/06/2023) [facility] of Past illness Narrative* Problem Noted Date Diagnosed Date Resolved Date PAD (peripheral artery disease) 06/11/2018 10/29/2018 Overview: Added automatically from request for surgery [id number] Last Assessment & Plan: S/P Surgery. Continue [...] of this encounter (statuses as of 09/06/2023) [facility] of Past illness Narrative* [...] of this encounter (statuses as of 11/22/2023) [facility] of Past illness Narrative* [...] of this encounter (statuses as of 11/25/2023) [facility] of Past illness Narrative* [...] of this encounter (statuses as of 12/12/2023) [facility] History of Past illness Narrative* [...] as of this encounter (statuses as of 12/26/2023) [facility] CenterDischarge summary Author Inocencio Perkins [facility] September 12, 2023 5:33pm Note Date/Time September 12, 2023 5 :30pm [facility] Medical Records Department [address] [place] [address] Instructions for Home/Discharge Instructions 09/12/23 1728 MR#: [id number] Acct: [id number] Name: DESIREE AMES Rep #:[id number] : 1935 88 From: Inocencio Perkins DO PCP: Dr. Riaz Garrison MD Status:ADM KRISTA Discharge Instructions Diet Discharge Diet: 1800 Calorie Control Diet Activity Discharge Activity: Return to Normal Activity Weight Bearing Status: Full weight bearing Follow Up Care Test Results: Test results from this visit will be discussed in further detail at your follow- up appointment, if applicable. Discharge Plan Admission Admit Date/Time: 09/12/23 06:22 Primary Reason for Your Visit: vertigo Attending Provider: Inocencio Perkins Primary Care Provider: Riaz Garrison Consulting Providers: Raymond Teague Discharge Orders/Prescriptions Prescriptions: Continued ammonium lactate 12 % lotion 1 applic TOPICAL QD-BID PRN (Reason: dry skin ) triamcinolone acetonide [Nasacort] 55 mcg aerosol,spray 2 spray INTRANASAL DAILY PRN (Reason: allergies) (DME) handicap placcard Qty: 1 0RF Rx Instructions: Lifetime: debility coenzyme Q10 [Co Q-10] 100 mg capsule 100 mg PO DAILY ascorbate calcium (vitamin C) 500 mg tablet 500 mg PO DAILY cholecalciferol (vitamin D3) 100 mcg (4,000 unit) tablet 100 mcg (4,000 unit) tablet 100 mcg PO DAILY (DME) spacer See Rx Instructions .ROUTE .MEDSUPPLY Qty: 1 0RF Rx Instructions: As directed ropinirole 1 mg tablet 1 mg PO QHS Qty: 60 5RF Rx Instructions: administer 1-3 hours before bedtime ibuprofen 200 mg tablet 200 mg PO Q6H PRN (Reason: fever or pain) docusate sodium 100 mg capsule 100 mg PO BID pantoprazole 40 mg tablet,delayed release (DR/EC) 40 mg PO DAILY Qty: 90 1RF (DME) OneTouch Ultra Test Strip See Rx Instructions .Route Qty: 180 1RF Rx Instructions: Check twice a day. (DME) lancets Misc See Rx Instructions .Route Qty: 180 1RF Rx Instructions: twice daily insulin glargine [Lantus Solostar U-100 Insulin] 100 unit/mL (3 mL) insulin pen 15 unit subcut QAM Qty: 15 0RF aspirin 81 mg tablet,chewable 81 mg PO QHS Patient Comments: antiplatelet spironolactone 25 mg tablet 25 mg PO DAILY Patient Comments: TAKE 1 TABLET BY MOUTH DAILY. THIS IS A DOSE INCREASE clopidogrel 75 mg tablet Patient Comments: Take 1 tablet by mouth once daily. albuterol sulfate [Ventolin HFA] 90 mcg/actuation HFA aerosol inhaler 2 inh INHALATION Q4H PRN (Reason: shortness of breath or wheezing) Qty: 18 6RF nitroglycerin [Nitrostat] 0.4 mg tablet, sublingual 0.4 mg SUBLINGUAL Q5-15M PRN (Reason: chest pain) Qty: 25 2RF ipratropium-albuterol 0.5 mg-3 mg(2.5 mg base)/3 mL solution for nebulization 3 ml inhalation 4X/DAY PRN PRN (Reason: shortness of breath or wheezing) Qty: 90 6RF ipratropium bromide 42 mcg (0.06 %) spray,non-aerosol 2 spray INTRANASAL TID-QID PRN (Reason: allergy symptoms) Qty: 15 6RF Rx Instructions: nasal drip - administer into each nostril; wait 30 seconds between sprays albuterol sulfate 2.5 mg /3 mL (0.083 %) solution for nebulization 2.5 mg inhalation Q4H PRN (Reason: Sob &/Or Wheezing) Qty: 180 11RF ipratropium bromide 0.02 % solution 2.5 ml inhalation Q6H PRN (Reason: shortness of breath or wheezing) Qty: 150 11RF furosemide 40 mg tablet 40 mg PO .COMPLEX Qty: 180 3RF Rx Instructions: 40 mg orally daily. Take 40 mg BID if weight > 190lbs; montelukast 10 mg tablet 10 mg PO QHS Qty: 90 3RF carvedilol 25 mg tablet 25 mg PO BID Qty: 180 3RF Rx Instructions: must administer with a meal/food atorvastatin 40 mg tablet 40 mg PO QODAY Qty: 45 3RF hydralazine 100 mg tablet 100 mg PO TID Qty: 360 3RF Farxiga 10 mg tablet 10 mg PO DAILY Qty: 90 0RF isosorbide mononitrate 30 mg tablet extended release 24 hr 30 mg PO DAILY Qty: 90 1RF amlodipine 10 mg tablet 10 mg PO DAILY Qty: 90 3RF loratadine 10 mg tablet 10 mg PO DAILY Qty: 90 0RF Referrals / Follow Up: Riaz Garrison MD [Primary Care Provider] - Within 1 Month Disposition Disposition (needs filled in before D/C Order can be placed): Home, Self Care 09/12/23 1733<Electronically signed by Inocencio Perkins DO>Inocencio Perkins DO CC: Dr. Riaz Garrison MD; Dr. Raymond Teague DO ~ Signed [facility] Work Phone: Discharge summary Author Dinesh Comer [facility] Note Date/Time February 15, 2025 4:38a m [facility] Medical Records Department [address] [place] [address] Emergency Department Summary 02/15/25 MR#: [id number] Acct: [id number] Name: DESIREE AMES Rep #:[id number] : 1935 89 From: Dinesh Comer MD PCP: Dr. Riaz Garrison MD Status:ADM IN Location: [place] [address] HPI History of Present Illness Chief Complaint: Shortness of Breath Informant: patient and spouse/S.O. Onset/Context/Timing Onset: Days Context: gradual Timing: Intermittent Quality: Positive for Dyspnea on exertion Current Severity: Mild Maximum Severity: Mild Worsened by: Exertion Relieved by: Rest Associated Symptoms cough and white sputum Chest Pain: Positive for None Narrative Narrative: 89-year-old male extensive past medical history of CHF, diabetes, anemia, COPD, CKD, A-fib on the blood thinner Eliquis. Was hospitalized several weeks ago. Dates he has developed shortness of breath with exertion. No chest pain. Initially was off his Lasix well in the hospital. He is restarted back home 40 twice a day. States he has had increased swelling in his lower extremities. Denies any significant chest pain. No fever. He does have a cough primarily ofwhite sputum. No fever. PE Risk Factors: Negative for Cancer, OCP + Smoking + > 35, Prior DVT or PE, Recent immobilization, Recent surgery or Recent travel Prior similar symptoms: Yes Recent Illness/[facility]ospitalization: [facility] Medical History Right carotid bruit Stable angina Kidney disease GERD (gastroesophageal reflux disease) Irregular heart beat Myocardial infarct Complicated urinary tract infection Urinary tract infection Colonic mass Controlled type 2 diabetes mellitus Acute respiratory insufficiency Chronic kidney disease Chronic anemia Bilateral edema of lower extremity Urinary retention Fatigue Pleural effusion (HFpEF) heart failure with preserved ejection fraction Pneumonia Colon polyp Lightheadedness Chronic constipation Anemia Obstructive sleep apnea Coronary artery disease Gastroesophageal reflux disease Allergic rhinitis Hyperlipidemia Urinary retention Wears hearing aid Wears dentures Wears glasses Cancer History of steroid therapy Ambulates with cane Walker as ambulation aid Arthritis Kidney stone Easy bruising Back pain Injury of back History of hiatal hernia Former smoker BiPAP (biphasic positive airway pressure) dependence Asthma Hoarseness Chronic cough Leg cramps History of pain when walking History of stress test History of heart attack History of irregular heartbeat Recurrent urinary tract infection ALMEIDA (dyspnea on exertion) Chest pain Right leg swelling Patellar bursitis of right knee Asthma-COPD overlap syndrome Abdominal aortic aneurysm (AAA) Peripheral vascular disease of extremity with claudication Rectus sheath hematoma Pre-syncope Essential (primary) hypertension Restless legs syndrome Daytime hypersomnia Somatic dysfunction of pelvic region DDD (degenerative disc disease), lumbar Overweight Seasonal allergies Carotid bruit Atherosclerotic heart disease of [place] coronary artery without angina pectoris PVD (peripheral vascular disease) COPD (chronic obstructive pulmonary disease) Home Medications ?Medication ?Instructions ?Recorded ?Last Taken ?Type handicap placcard #1 ea 09/28/19 Unknown Rx coenzyme Q10 100 mg capsule (Co 100 mg PO DAILY supple ment 05/03/20 01/29/25 History Q-10) cholecalciferol (vitamin D3) 100 100 mcg PO DAILY supp lement 11/03/20 01/29/25 History mcg (4,000 unit) tablet spacer #1 ea 01/12/21 Unknown Rx lancets #180 ea 07/18/23 Unknown Rx lactulose 20 gram/30 mL oral 20 g PO BID PRN constipat ion 05/01/24 Unknown History solution montelukast 10 mg tablet 10 mg PO QHS Respiratory #90 tabs 05/04/24 01/28/25 Rx atorvastatin 40 mg tablet 40 mg PO QODAY cholesterol # 45 tabs 05/13/24 01/27/25 Rx tamsulosin 0.4 mg capsule 0.4 mg PO DAILY 06/01/24 History finasteride 5 mg tablet 5 mg PO DAILY 06/28/2401/28 History insulin aspart U-100 100 unit/mL 10 unit (0.1 mL) subc ut TID #15 mL 10/07/24 01/29/25 Rx subcutaneous cartridge (Novolog PenFill U-100 Insulin aspart) handicap placard #1 ea 10/12/24 Unknown Rx budesonide-formoterol HFA 160 2 puff inhalation BID co pd #3 ea 10/16/24 01/28/25 Rx mcg-4.5 mcg/actuation aerosol inhaler (Symbicort) pantoprazole 40 mg tablet,delayed 40 mg PO DAILY reflu x #90 tabs 11/30/24 01/29/25 Rx release apixaban 2.5 mg tablet (Eliquis) 2.5 mg PO BID atrial fibrillation 12/14/24 01/29/25 Rx #180 tabs aspirin 81 mg tablet,delayed 81 mg PO DAILY 12/14/24 0 01/28/25 History release (Adult Low Dose Aspirin) ipratropium bromide 21 mcg (0.03 2 spray intranasal BI D PRN allergy 12/14/24 Unknown History %) nasal spray symptoms blood sugar diagnostic (OneTouch #180 ea 12/21/24 Unkn own Rx Ultra Test strips) albuterol sulfate 90 mcg/actuation 2 inh inhalation Q4 H PRN shortness 01/04/25 01/28/25 Rx aerosol inhaler (Ventolin HFA) of breath or wheezing # 18 grams nitroglycerin 0.4 mg sublingual 0.4 mg sublingual Q5-1 5M PRN chest 01/13/25 01/29/25 Rx tablet (Nitrostat) pain #25 tabs pen needle, diabetic 31 gauge x #100 ea 01/13/25 Unkno wn Rx 1/ (Unifine Pentips) hydralazine 100 mg tablet 100 mg PO BID hypertension # 180 01/26/25 01/29/25 Rx tabs ranolazine 500 mg tablet,extended 500 mg PO BID #180 t abs 01/26/25 01/29/25 Rx release,12 hr ropinirole 1 mg tablet 3 mg (3 x 1 mg) PO QHS restl ess 01/26/25 01/28/25 Rx leg #90 tabs gabapentin 100 mg capsule 100 mg PO DAILY 01/29/25 History ipratropium 0.5 mg-albuterol 3 mg 3 ml inhalation TID SOB &/OR 01/29/25 01/28/25 History (2.5 mg base)/3 mL nebulization WHEEZING soln loratadine 10 mg tablet (Allergy 10 mg PO DAILY allerg ies 01/29/25 01/28/25 History Relief (loratadine)) 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 meter,continuous #1 ea 02/01/25 Unknown Rx (FreeStyle [place] 3 [place]) ferrous sulfate 325 mg (65 mg 325 mg PO 3XW 02/04/25 U nknown History iron) tablet (FeroSul) 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 sensor (FreeStyle #3 ea 02/10/25 Unknown Rx Dwight 3 Plus Sensor device) furosemide 20 mg tablet 40 mg PO BID 02/15/25 Unknow n History insulin glargine 100 unit/mL (3 22 unit subcut DAILY 0 02/15/25 Unknown History mL) subcutaneous pen (Lantus Solostar U-100 Insulin) Allergy/AdvReac Type Severity Reaction Status Date / Time cilostazol (From Pletal) Allergy Unknown Verified 02/04/25 14:00 felodipine Allergy Hives Verified 02/04/25 14:00 levofloxacin Allergy Hives Verified 02/04/25 14:00 Sulfa (Sulfonamide Allergy Unknown Verified 02/04/25 14:00 Antibiotics) isosorbide AdvReac Intermediate low BP Verified 02/04/25 14:00 Family History Father Diabetes Cancer Prostate cancer Mother Dementia Brother Parkinsons Brother Cancer H/O vascular surgery Surgical History History of appendectomy History of surgical procedure H/O vascular surgery History of surgical procedure History of transurethral resection of prostate History of endarterectomy (07/2018) History of left heart catheterization (03/2014) History of coronary artery stent placement (02/17/08) History of vascular surgery (08/2018) History of hernia repair H/O aortic aneurysm repair (11/1998) Social History household members: spouse 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 status: 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 Cough and white sputum. Constitutional Constitutional ED: Denies chills or fever(s) Eyes Eyes: Denies blurry vision ENT ENT ED: Denies ear pain Cardiovascular Cardiovascular: Denies chest pain, orthopnea or paroxysmal nocturnal dyspnea Respiratory/Chest Respiratory/Chest: Reports cough, dyspnea, dyspnea on exertion and sputum; Denies orthopnea or paroxysmal nocturnal dyspnea Gastrointestinal Gastrointestinal: Denies abdominal pain, diarrhea, melena, nausea or vomiting Genitourinary Genitourinary ED: Denies dysuria or hematuria Musculoskeletal Musculoskeletal: Denies arthralgias Integumentary Denies abscess Psychiatric Psychiatric: Denies anxiety Endocrine Endocrinology: Denies cold intolerance Hematologic/Lymphatic Hematologic/Lymphatic: Denies easy bleeding, easy bruising or lymphadenopathy Allergic/Immunologic Allergic/Immunologic ED: Denies mouth swelling, tongue swelling or urticaria EXAM Physical Exam Narrative Exam Narrative: 89-year-old male lying in bed. Vital signs are stable afebrile. Pulse ox in bed 93 to 95%. He is in no distress. is at bedside. H EENT exam pupils round react light. Moist moist membranes. Neck nontender no JVD. No lymphadenopathy. Lungs clear to auscultation bilaterally. Heart atrial flutterrate about 82 no murmur. Chest wall ribs nontender. Abdomen soft nontender. 1+ pitting edema both lower extremities. Consistent with bilateral peripheral edema. Dorsi plantarflexion intact. Normal support analyst strength. Back nontender. Neurologically is awake alert. Answering questions following commands. Const Vital Signs: 02/15/25 02:58 02/15/25 03:05 02/15/25 03:22 Temperature 98.3 F Temperature Source Oral Pulse Rate 81 Respiratory Rate 26 H Respiratory Effort Normal Respiratory Depth Normal Respiratory Pattern Normal Blood Pressure 144/100 H Blood Pressure Mean 114 Pulse Ox 93 95 Oxygen Delivery Method Room Air Room Air Room Air 02/15/25 03:53 02/15/25 04:16 Temperature 98.1 F 98.1 F Temperature Source Oral Pulse Rate 81 90 Respiratory Rate 16 19 H Respiratory Effort Respiratory Depth Respiratory Pattern Blood Pressure 149/91 H 150/101 H Blood Pressure Mean 110 117 Pulse Ox 94 96 Oxygen Delivery Method Room Air Positive well nourished and well developed; Negative for obese, cachectic, contractures or unkempt General Appearance ED: well developed and NAD; Negative for unkempt, cachectic or contractures Nutritional Appearance: Negative for cachectic or obese HEENT Reports moist mucous membranes atraumatic; Negative for trauma or tenderness Eyes PERRL and EOMs intact bilaterally Neck no lymphadenopathy, supple, no meningeal signs and no JVD Resp normal respiratory effort and clear to auscultation bilaterally Cardio no murmurs; Negative for regular rate Cardio Narrative: Atrial flutter rate about 82. GI non-tender, non-distended and no masses Auscultation: normoactive bowel sounds Palpation: soft; Negative for tender, guarding, mass or rebound tenderness present Back/Spine no CVA tenderness and normal to inspection Extremity Negative for normal to inspection Extremity Narrative: Bilateral 1+ pitting edema. Equal symmetrical. Calves nontender. No cords. General Extremety ED: Yes edema; Negative for tenderness General Extremity: edema Neuro oriented x3 and CN's II-XII intact bilaterally Sensorium / Orientation: alert, oriented to person, oriented to place and oriented to time; Negative for orientation impaired, confused, lethargic or stuporous Motor Exam: strength 5/5 throughout Psych mental status grossly normal Appearance: Negative for unkempt Attitude: No agitated Mood & Affect: Negative for depressed, anxious or tearful Skin no wounds and skin turgor normal General Skin Exam: Negative for jaundice Rashes: no rashes MDM MDM MDM Narrative Medical decision making narrative: 89-year-old male exertional dyspnea. Exam has a flutter controlled rate with bilateral peripheral edema. This could be from CHF. Could be from anemia. Could be cardiac. I do not think is pneumonia. I do not think it is COVID. I do not think it is a pulmonary emboli because he is on Eliquis. Patient will undergo cardiac workup including a BNP. Repeat exam at 4:05 AM. No significant change. I went over specific test result the patient and his . They tell me he cannot walk across the room athome without get significantly winded that the sit down. I think his dyspnea issecondary to pulmonary edema, CHF, atrial fibs flutter and worsening anemia. I will speak to the hospitalist about admitting him. The patient will be given 20mg of IV Lasix. History & Record Review Discussion w/independent historian: Patient and Family Additional record(s) reviewed:: Prior inpatient record, Prior outpatient record,Prior ED visit and Prior labs Lab Data Attestation: I reviewed the patient's lab results. Lab results narrative: CBC shows a week 11.2. H&H 9.5 and 27. Platelets 428. Electrolytes shows sodium 133. Gap 15. BUN 48 creatinine 2.1. Glucose 190. Initial troponin 83. BNP 12,152. COVID, flu RSV negative. Labs: Laboratory Results - last 24 hr 02/15/25 02:42 WBC 11.2 H RBC 2.89 L Hgb 9.5 L Hct 27.7 L MCV 95.8 H MCH 32.9 H MCHC 34.3 RDW Std Deviation 46.5 H RDW Coeff of Justin 13.9 Plt Count 428 MPV 10.2 Immature Gran % (Auto) 0.800 Neut % (Auto) 83.7 H Lymph % (Auto) 6.4 L [place] % (Auto) 8.8 Eos % (Auto) 0.1 Baso % (Auto) 0.2 Absolute Neuts (auto) 9.4 H Absolute Lymphs (auto) 0.72 L Nucleated RBC % 0 Sodium 133 Potassium 4.1 Chloride 97 L Carbon Dioxide 21.0 Anion Gap 15 BUN 48 H Creatinine 2.12 H Estim Creat Clear Calc 27.81 L Est GFR (MDRD) Non-Af 30 L BUN/Creatinine Ratio 22.7 H Glucose 190 H Calcium 9.5 Troponin T High Sens 83 H* [place] [address] H Radiography Chest X-Ray - ED: 2 View, Read by ED Physician, Read by Radiologist, Mediastinum, Bony Structures, Chronic Changes, Cardiomegaly, CHF and - (Small pleural effusion.) Diagnostic Testing: Clinical Impression(s) from Imaging Studies Chest X-Ray 02/15/25 03:25 IMPRESSION: There is again appearance of some increased perihilar markings with a lower zonepredominance and possibly some septal thickening now with some small pleural effusions suggested on the lateral view which may represent mild pulmonary edema, clinically correlate. Cardiac silhouette is again mildly large for technique. Reading Location: [facility] Chest x-ray, 2 views, AP and lateral, interpreted by myself and the radiologist. Shows mild cardiomegaly. Pulmonary edema. Small pleural effusion. No pneumonia. Rhythm Strip Rhythm Strip: Atrial flutter Rate: 82 Ectopy: PVC(s) EKG Initial EKG: Attestation: I personally reviewed and interpreted this EKG as follows: Interpretation: No Acute Injury Pattern and Atrial Flutter Comments: Atrial flutter rate of 82. Occasional PVC. No acute sign of MIor ischemia. Discharge Plan Dx/Rx/DC Orders Clinical Impression: Acute dyspnea, Anemia, Chronic anticoagulation, CHF (congestive heart failure),Atrial fibrillation/flutter, Peripheral edema, Chronic kidney disease, History of diabetes mellitus, History of COPD Disposition Disposition: Acute Care [facility] What to do if you have Problems For any increased pain, shortness of breath, bleeding, nausea or vomiting, chestpain, or any unexpected problems, contact your Primary Care Provider. Call [facility] ([phone]) or report to the closest Emergency Room. Call 911 if necessary. 02/15/25 0438 <Electronically signed by Dinesh Comer MD> Cosigner Signature (if applicable): CC: Dr. Riaz Garrison MD ~ Signed [facility] Work Phone: Discharge summary Author Tracey Orantes [facility] Note Date/Time March 09, 2025 4:25p m [facility] Medical Records Department [address] [place] [address] Instructions for Home/Discharge Instructions 03/09/25 1623 MR#: [id number] Acct: [id number] Name: DESIREE AMES Rep #:[id number] : 1935 89 From: Tracey Orantes MD PCP: Dr. Riaz Garrison MD Status:ADM IN Discharge Instructions Diet Discharge Diet: Low fat / Low cholesterol DC O2, CPAP, BIPAP needs Home O2 Discharge instructions: No Dressing / Incision Discharge Activity: Return to Normal Activity Weight Bearing Status: Weight bearing as tolerated Dressing / Incision Call your doctor if you observe: Fever of 101 or Higher, Shortness of breath, Dizziness, Swelling in the ankles, Chest pain and Increased palpitations (irregular heartbeat) Follow Up Care Test Results: Test results from this visit will be discussed in further detail at your follow- up appointment, if applicable. Discharge Plan Admission Admit Date/Time: 03/04/25 17:31 Primary Reason for Your Visit: acute heart failure, COPD exacerbation, pneumonia Attending Provider: Tracey Orantes Primary Care Provider: Riaz Garrison Consulting Providers: Hansel Gillis; Tracey Orantes; Romana Dudley; Natanael Christensen; Fernandez Santana Instructions Patient Instructions: Coping with Heart Failure, ED Pneumonia (Adult) Discharge Orders/Prescriptions Prescriptions: New cephalexin 500 mg capsule 500 mg PO Q8H Qty: 12 0RF Continued (DME) handicap placcard Qty: 1 0RF Rx Instructions: Lifetime: debility coenzyme Q10 [Co Q-10] 100 mg capsule 100 mg PO DAILY cholecalciferol (vitamin D3) 100 mcg (4,000 unit) tablet 100 mcg PO DAILY (DME) spacer See Rx Instructions .ROUTE .MEDSUPPLY Qty: 1 0RF Rx Instructions: As directed (DME) lancalesia [facility] See Rx Instructions .Route Qty: 180 1RF Rx Instructions: twice daily tamsulosin 0.4 mg capsule 0.4 mg PO DAILY Patient Comments: PT TAKES SOMETIMES pantoprazole 40 mg tablet,delayed release (DR/EC) 40 mg PO DAILY Qty: 90 1RF (DME) FreeStyle [place] 3 [place] [facility] See Rx Instructions .Route Qty: 1 0RF Rx Instructions: As directed finasteride 5 mg tablet 5 mg PO DAILY Patient Comments: PT TAKES AT NIGHT ipratropium bromide 21 mcg (0.03 %) spray,non-aerosol 2 spray intranasal BID PRN (Reason: allergy symptoms) Rx Instructions: administer into each nostril furosemide 40 mg Tablet 40 mg PO UD Qty: 90 0RF Rx Instructions: 2 tablets every morning, 1 tablet at 4:00 daily dextromethorphan-guaifenesin 10-100 mg/5 mL Syrup 5 ml PO Q4H PRN PRN (Reason: Cough) Qty: 0 0RF carvedilol 3.125 mg tablet 6.25 mg PO BID ipratropium-albuterol 0.5 mg-3 mg(2.5 mg base)/3 mL solution for nebulization 3 ml inhalation TID Rx Instructions: 3 mL inhaled; loratadine [Allergy Relief (loratadine)] 10 mg tablet 10 mg PO DAILY insulin glargine [Lantus Solostar U-100 Insulin] 100 unit/mL (3 mL) insulin pen 22 unit subcut DAILY aspirin 81 mg Tablet,Delayed Release (Dr/Ec) 81 mg PO BREAKFAST Qty: 0 0RF lactulose 10 gram/15 mL Solution 20 g PO DAILY Qty: 946 0RF ferrous sulfate [FeroSul] 325 mg (65 mg iron) tablet 325 mg PO DAILY Qty: 30 0RF Rx Instructions: 1 tablet daily montelukast 10 mg tablet 10 mg PO QHS Qty: 90 3RF atorvastatin 40 mg tablet 40 mg PO QODAY Qty: 45 3RF Patient Comments: PT TAKES IN EVENING, Saturday, Saturday and Saturday insulin aspart U-100 [Novolog PenFill U-100 Insulin] 100 unit/mL cartridge 10 unit subcut TID Qty: 15 1RF Rx Instructions: hold if glucose is under 130 (DME) handicap placard See Rx Instructions .ROUTE .MEDSUPPLY Qty: 1 0RF Rx Instructions: Length of time: 5 years Diganosis: Impaired physical mobility budesonide-formoterol [Symbicort] 160-4.5 mcg/actuation HFA aerosol inhaler 2 puff inhalation BID Qty: 3 3RF Rx Instructions: administer with spacer, rinse mouth after each use Eliquis 2.5 mg tablet 2.5 mg PO BID Qty: 180 4RF (DME) OneTouch Ultra Test Strip See Rx Instructions .Route Qty: 180 1RF Rx Instructions: Check three to four times a day. albuterol sulfate [Ventolin HFA] 90 mcg/actuation HFA aerosol inhaler 2 inh INHALATION Q4H PRN (Reason: shortness of breath or wheezing) Qty: 18 6RF ranolazine 500 mg tablet extended release 12 hr 500 mg PO BID Qty: 180 3RF hydralazine 100 mg tablet 100 mg PO BID Qty: 180 3RF ropinirole 1 mg tablet 3 mg PO QHS Qty: 90 11RF Rx Instructions: administer 2-3 tablets, 1-3 hours before bedtime (DME) FreeStyle Dwight 3 Plus Sensor Device See Rx Instructions .Route Qty: 3 0RF Rx Instructions: As directed (DME) pen needle, diabetic [Unifine Pentips] 31 gauge x 1/4 needle See Rx Instructions .ROUTE .COMPLEX Qty: 100 1RF Dose Instruction: use 3 TO 4 needles daily Rx Instructions: use 3 TO 4 needles daily nitroglycerin [Nitrostat] 0.4 mg tablet, sublingual 0.4 mg SUBLINGUAL Q5-15M PRN (Reason: chest pain) Qty: 25 2RF potassium chloride 10 mEq tablet,ER particles/crystals 20 meq PO BIDCM Qty: 60 0RF Referrals / Follow Up: Riaz Garrison MD [Primary Care Provider] - Within 1 Week Luiz Painter DO [Med Staff - Active Staff] - 03/23/25 (Follow up on March 23 2:15pm as scheduled) Nikolai Tsang MD [Med Staff - Active Staff] - Within 2 Weeks (see for care of heart failure) Disposition Disposition (needs filled in before D/C Order can be placed): Home Health Service 03/09/25 1625<Electronically signed by Tracey Orantes MD>Tracey Orantes MD CC: Dr. Hansel Gillis MD; Dr. Riaz Garrison MD; Dr. Romana Dudley MD; Dr. Tracey Orantes MD; Dr. Fernandez Santana MD; Dr. Natanael Christensen MD ~ Signed [facility] Work Phone: Discharge summary Author [facility] Note Date/Time March 09, 2025 4:34p [facility] Medical Records Department [address] [place] [address] Discharge Summary 03/09/256 MR#: [id number] Acct: [id number] Name: DESIREE AMES Rep #:[id number] : 1935 89 From: Tracey Orantes MD PCP: Dr. Riaz Garrison MD Status:ADM IN Location: [place] [address] Providers Date of Admission: 03/04/25 Date of Discharge: 03/09/25 Primary Care Physician: Dr. Riaz Garrison MD Consultations 03/04/25 17:33 Consult: Welding Manager / Pulmonary Medicine Routine Consulting Provider: Guillermo Briones Reason for Consult: Shortness of breath EMERGENT Consult: No Notified: Yes Date Notified: 03/04/25 Time Notified: 17:33 Method of Notification: Answering Service 03/06/25 10:58 Consult: Cardiology Routine Consulting Provider: Romana Dudley Reason for Consult: chf EXACERB, troponins elevate EMERGENT Consult: No Notified: Yes Date Notified: 03/06/25 Time Notified: 10:58 Method of Notification: Text 03/07/25 13:44 Consult: Infectious Disease Routine Consulting Provider: Natanael Christensen Reason for Consult: MSSA Pneumonia, recurrent pneumonia EMERGENT Consult: No Notified: Yes Date Notified: 03/07/25 Time Notified: 13:44 Method of Notification: Text 03/08/25 09:37 Consult: Welding Manager / Pulmonary Medicine Routine Consulting Provider: Intensivists/Pulmonary Med Reason for Consult: recurrent pneumonia, pt of Dr. Painter EMERGENT Consult: No MD Notified: Yes Date Notified: 03/08/25 Time Notified: 09:37 Method of Notification: Text Reason For Visit: INFECTION Diagnosis Discharge Diagnosis (1) COPD exacerbation: Status: Chronic Code(s): J44.1 - Chronic obstructive pulmonary disease with (acute) exacerbation (2) Pneumonia: Status: Acute Code(s): J18.9 - Pneumonia, unspecified organism Plan #Hypoxia due to acute on chronic heart failure, COPD exacerbation and pneumonia * on room air * on IV zosyn * 2D echo from 02/15/2025 showed moderate concentric left ventricular hypertrophy with left ventricular EF of 40% and bouts of moderate hypokinesis of the left ventricle with left atrium severely enlarged and right atrium mildly enlarged * Chest x-ray with this admission showed findings suggestive of chronic interstitial fibrosis and did not show any evidence of pneumonia. * Previous sputum cultures grew Citrobacter, Enterobacter and Raoultella sensitive to zosyn. These cultures were from 02/19/2025. * cardiology consulted due to decreased EF. Per cardiology, to get repeat 2D echo * family requesting for pulmonology consult o/a of CXR findings of chronic interstitial fibrosis. * titrate oxygen to maintain sats >90% * sputum cultures growing MSSA now * ID on board o/a of sputum culture findings. Continue IV vancomycin and zosyn. * #Acute exacerbation of heart failure with reduced EF: as above. #CKD III: Cr is 2.19 today. Baseline Cr is ~ 1.9-2. #CAD: has a history of stent in RCA. 2 echo as above. stable #History of A-fib: On Eliquis and carvedilol #Type 2 diabetes mellitus: Lantus. Insulin sliding. Accu-Cheks ACHS. #Restless leg syndrome: Ropinirole DVT prophylaxis: on eliquis. Medications at Discharge Home Medications handicap placcard #1 ea 09/28/19 coenzyme Q10 100 mg capsule (Co Q-10) 100 mg PO DAILY supplement 05/03/20 cholecalciferol (vitamin D3) 100 mcg (4,000 unit) tablet 100 mcg PO DAILY supplement 11/03/20 spacer #1 ea 01/12/21 lancets #180 ea 07/18/23 montelukast 10 mg tablet 10 mg PO QHS Respiratory #90 tabs 05/04/24 atorvastatin 40 mg tablet 40 mg PO QODAY cholesterol #45 tabs 05/13/24 tamsulosin 0.4 mg capsule 0.4 mg PO DAILY prostate 06/01/24 finasteride 5 mg tablet 5 mg PO DAILY prostate 06/28/24 insulin aspart U-100 100 unit/mL subcutaneous cartridge (Novolog PenFill U-100 Insulin aspart) 10 unit (0.1 mL) subcut TID diabetes #15 mL 10/07/24 handicap placard #1 ea 10/12/24 budesonide-formoterol HFA 160 mcg-4.5 mcg/actuation aerosol inhaler (Symbicort) 2 puff inhalation BID copd #3 ea 10/16/24 pantoprazole 40 mg tablet,delayed release 40 mg PO DAILY reflux #90 tabs 11/30/24 apixaban 2.5 mg tablet (Eliquis) 2.5 mg PO BID atrial fibrillation #180 tabs 12/14/24 ipratropium bromide 21 mcg (0.03 %) nasal spray 2 spray intranasal BID PRN allergy symptoms 12/14/24 blood sugar diagnostic (ArmutTouch Ultra Test strips) #180 ea 12/21/24 albuterol sulfate 90 mcg/actuation aerosol inhaler (Ventolin HFA) 2 inh inhalation Q4H PRN shortness of breath or wheezing #18 grams 01/04/25 hydralazine 100 mg tablet 100 mg PO BID hypertension #180 tabs 01/26/25 ranolazine 500 mg tablet,extended release,12 hr 500 mg PO BID chest pain #180 tabs 01/26/25 ropinirole 1 mg tablet 3 mg (3 x 1 mg) PO QHS restless leg #90 tabs 01/26/25 ipratropium 0.5 mg-albuterol 3 mg (2.5 mg base)/3 mL nebulization soln 3 ml inhalation TID SOB &/OR WHEEZING 01/29/25 loratadine 10 mg tablet (Allergy Relief (loratadine)) 10 mg PO DAILY allergies 01/29/25 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,rug designer,cont (noodls Dwight 3 [place]) #1 ea 04/28/25 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 sensor (FreeStyle [place] 3 Plus Sensor device) #3 ea 02/10/25 insulin glargine 100 unit/mL (3 mL) subcutaneous pen (Lantus Solostar U-100 Insulin) 22 unit subcut DAILY diabetes 02/15/25 nitroglycerin 0.4 mg sublingual tablet (Nitrostat) 0.4 mg sublingual Q5-15M PRN chest pain #25 tabs 02/15/25 pen needle, diabetic 31 gauge x 1/4 (Unifine Pentips) #100 ea 02/15/25 aspirin 81 mg tablet,delayed release 81 mg PO BREAKFAST heart health #0 tabs 02/18/25 ferrous sulfate 325 mg (65 mg iron) tablet (FeroSul) 325 mg PO DAILY low iron #30 tabs 02/18/25 lactulose 10 gram/15 mL oral solution 20 g (30 mL) PO DAILY constipation #946 mL02/18/25 dextromethorphan-guaifenesin 10 mg-100 mg/5 mL oral syrup 5 ml PO Q4H PRN PRN Cough #0 mL 02/22/25 furosemide 40 mg tablet 40 mg PO UD #90 tabs 02/22/25 potassium chloride 10 mEq tablet,extended release(part/cryst) 20 meq (2 x 10 mEq) PO BIDCM supplement #60 tabs 03/02/25 carvedilol 3.125 mg tablet 6.25 mg PO BID Heart 03/04/25 cephalexin 500 mg capsule 500 mg PO Q8H #12 caps 03/09/25 Hospital Course Operations None Procedures None Summary of Care Provided Minutes Spent on Discharge: 45 Hospital Course: Patient is an 89-year-old male with a past medical history as outlined includinghistory of congestive heart failure who was admitted to the ED on 03/04/2025 witha complaint of shortness of breath and fatigue. Patient had recently been admitted on 02/18/2025 and was discharged on 02/22/2025 on account of NARENDRA due to the diuretics. She was sent home on room air. However said he had been getting more short of breath. This was his third admission over 1 month and he had been admitted earlier in February for acute decompensated heart failure and pneumonia. He had also had an associated cough productive of yellowish-greenishsputum. With this admission, he became hypoxic in the ED with a saturation dropping to 88% and so he was admitted to be managed for hypoxia concerning for pneumonia and heart failure. His previous sputum cultures done during his previous admission grew Citrobacter, Enterobacter and will tell been sensitive to Zosyn so he was started on IV Zosyn. Pulmonology was consulted. Patient wasalso diuresed with Lasix. His shortness of breath did improve and he was weaneddown to room air. Of note his 2D echo done during a previous admission showed moderate concentric left ventricular hypertrophy with left ventricular EF of 40%and bouts of moderate hypokinesis of the left ventricle with left atrium severely enlarged and right atrium mildly enlarged. Cardiology was consulted toevaluate him on account of the change in his EF. Cardiology reviewed them and had initially requested repeat 2D echo but subsequent applique sewer decided this was not needed. He was continued on his Lasix as needed. Infectious disease was also consulted and patient was switched to IV cefazolin. Per patient's request pulmonology was consulted. Pulmonology recommended that patient could follow-up on outpatient basis as he was on room air and his hypoxia had resolved. He had a follow-up on March 23, 2025 at 2:15 PM with pulmonology. Patient was discharged home on 03/09/2025 on p.o. Keflex for 4-day course per ID recommendation. He is to follow-up with his primary care doctor within 1 to 2 weeks and also to follow-up with pulmonology as scheduled and follow-up with cardiology on outpatient basis within 1 to 2 weeks also. Patient was seen and examined prior to discharge. Patient's was by his bedside. Patient's expressed concern about patient going home as she did not feel that she could take care of him. She was concerned that he would not be able to ambulate well. Patient however adamantly refused to go to rehab or even consider it. I did public relations counselor patient and extensively in the presence ofthe nurse Alex and the subsequent nurse who took over, Christine that in light ofhis advanced age and frailty, and also in light of patient's 's concern about being able to take care of him, it would be beneficial for patient to consider rehab for at least a few days to help to optimize her strength so that he could go back home and take better care of himself. However patient again was adamant in his refusal and so acquiesced to him going home with home health care. Patient was agreeable to having therapy on outpatient basis at [facility]. Labs and vitals reviewed. Home medication reviewed and reconciled. Physical Exam Const alert, oriented x3 and no apparent distress Constitutional Narrative: frail General Appearance: cooperative and comfortable HEENT normocephalic, head/scalp atraumatic, hearing grossly normal bilaterally, moist oral mucous membranes and oropharynx normal Mouth: oral and palatal mucosa normal Eyes PERRL, EOMs intact bilaterally and conjunctivae normal Neck no lymphadenopathy, supple and no JVD Lymph Lymphatic: no lymphedema noted Resp Resp Narrative: mildly diminished breath sounds bibasally, no wheezes or crackles. On room air. Cardio regular rate, regular rhythm, S1 normal heart sound, S2 normal heart sound and no murmurs GI normal to inspection, nondistended, normoactive bowel sounds, soft to palpation,non-tender and non-distended Extremity normal to inspection, full ROM, normal capillary refill, no clubbing, cyanosis or edema and no calf tenderness General Extremity: no tenderness to palpation of joints or extremities Skin General Skin Exam: no breakdown Neuro oriented x3 and no focal motor deficits Motor Exam: general weakness Psych thought process normal, cooperative and affect normal Appearance: appropriate Weight / BMI Weight Weight: 191 lb 4.792 oz Body Mass Index (BMI) 29.0 ABG / Lab / Microbiology Data 03/09/25 05:07 03/09/25 05:07 Laboratory: Laboratory Results - last 24 hr 03/08/25 17:17: POC Glucose 180 H 03/09/25 05:07: WBC 7.7, RBC 3.33 L, Hgb 10.6 L, Hct 31.8 L, MCV 95.5 H, MCH 31.8, MCHC 33.3, RDW Std Deviation 53.9 H, RDW Coeff of Justin 16.1 H, Plt Count 281, MPV 10.0, Immature Gran % (Auto) 1.000 H, Neut % (Auto) 74.7 H, Lymph % (Auto) 15.9 L, [place] % (Auto) 6.6, Eos % (Auto) 1.4, Baso % (Auto) 0.4, Absolute Neuts (auto) 5.7, Absolute Lymphs (auto) 1.22, Nucleated RBC % 0, Sodium 137, Potassium 3.4, Chloride 100, Carbon Dioxide 23.9, Anion Gap 14, BUN 45 H, Creatinine 2.21 H, Estim Creat Clear Calc 25.23 L, Est GFR (MDRD) Non-Af 28 L, BUN/Creatinine Ratio 20.2 H, Glucose 149 H, Calcium 9.1 03/09/25 07:31: POC Glucose 146 H 03/09/25 11:09: POC Glucose 228 H Microbiology: Microbiology 03/04/25 15:40 Blood Culture (Wb) - Right Forearm Blood Culture - Final No growth in 5 days. 03/04/25 13:46 Blood Culture (Wb) - Right Forearm Blood Culture - Final No growth in 5 days. 03/04/25 20:10 Sputum, Expectorated/Coughed Gram Stain - Final 03/04/25 20:10 Sputum, Expectorated/Coughed Respiratory Culture - Final Staphylococcus aureus 03/05/25 19:15 Mucosa - Nose SARS-CoV-2, Influenza & RSV (PCR) - Final D/C Instructions Discharge Diet: Low fat / Low cholesterol Discharge Activity: Return to Normal Activity Weight Bearing Status: Weight bearing as tolerated Call your doctor if you observe: Fever of 101 or Higher, Shortness of breath, Dizziness, Swelling in the ankles, Chest pain and Increased palpitations (irregular heartbeat) DC O2, CPAP, BIPAP Needs Home O2 Discharge instructions: No DC home with Oxygen: No Meaningful Use Info Meaningful Use Meaningful Use Diagnoses (Choose all that apply): CHF CHF SILVANO/ARB ordered at discharge?: No Reason SILVANO/ARB not ordered?: Worsening renal disease Documented LVEF (%): 49 Ischemic Stroke Statin Dosing Therapy Reference: STATIN DOSE THERAPY REFERENCE: * Patients > 75 years receive moderate or high dose statin therapy. * Patients 75 years or YOUNGER should receive HIGH intensity statin dose unless contraindicated. You will be required to document reason for non-treatment if statin daily dose does not meet guidelines. HIGH DOSE STATIN THERAPY DAILY Atorvastatin > than or = to 40 mg Rosuvastatin > than or = to 20 mg Amlodipine + Atorvastatin > than or = to 2.5/40 mg Ezetimibe + Simvastatin 10/80 mg Simvastatin 80mg Discharge Plan Admission Admit Date/Time: 03/04/25 17:31 Primary Reason for Your Visit: acute heart failure, COPD exacerbation, pneumonia Attending Provider: Tracey Orantes Primary Care Provider: Riaz Garrison Consulting Providers: Hansel Gillis; Tracey Orantes; Romana Dudley; Natanael Christensen; Fernandez Santana Instructions Patient Instructions: Coping with Heart Failure, ED Pneumonia (Adult) Discharge Orders/Prescriptions Prescriptions: New cephalexin 500 mg capsule 500 mg PO Q8H Qty: 12 0RF Continued (DME) handicap placcard Qty: 1 0RF Rx Instructions: Lifetime: debility coenzyme Q10 [Co Q-10] 100 mg capsule 100 mg PO DAILY cholecalciferol (vitamin D3) 100 mcg (4,000 unit) tablet 100 mcg PO DAILY (DME) spacer See Rx Instructions .ROUTE .MEDSUPPLY Qty: 1 0RF Rx Instructions: As directed (DME) lancets [facility] [place] See Rx Instructions .Route Qty: 180 1RF Rx Instructions: twice daily tamsulosin 0.4 mg capsule 0.4 mg PO DAILY Patient Comments: PT TAKES SOMETIMES pantoprazole 40 mg tablet,delayed release (DR/EC) 40 mg PO DAILY Qty: 90 1RF (DME) FreeStyle Dwight 3 [place] Mis See Rx Instructions .Route Qty: 1 0RF Rx Instructions: As directed finasteride 5 mg tablet 5 mg PO DAILY Patient Comments: PT TAKES AT NIGHT ipratropium bromide 21 mcg (0.03 %) spray,non-aerosol 2 spray intranasal BID PRN (Reason: allergy symptoms) Rx Instructions: administer into each nostril furosemide 40 mg Tablet 40 mg PO UD Qty: 90 0RF Rx Instructions: 2 tablets every morning, 1 tablet at 4:00 daily dextromethorphan-guaifenesin 10-100 mg/5 mL Syrup 5 ml PO Q4H PRN PRN (Reason: Cough) Qty: 0 0RF carvedilol 3.125 mg tablet 6.25 mg PO BID ipratropium-albuterol 0.5 mg-3 mg(2.5 mg base)/3 mL solution for nebulization 3 ml inhalation TID Rx Instructions: 3 mL inhaled; loratadine [Allergy Relief (loratadine)] 10 mg tablet 10 mg PO DAILY insulin glargine [Lantus Solostar U-100 Insulin] 100 unit/mL (3 mL) insulin pen 22 unit subcut DAILY aspirin 81 mg Tablet,Delayed Release (Dr/Ec) 81 mg PO BREAKFAST Qty: 0 0RF lactulose 10 gram/15 mL Solution 20 g PO DAILY Qty: 946 0RF ferrous sulfate [FeroSul] 325 mg (65 mg iron) tablet 325 mg PO DAILY Qty: 30 0RF Rx Instructions: 1 tablet daily montelukast 10 mg tablet 10 mg PO QHS Qty: 90 3RF atorvastatin 40 mg tablet 40 mg PO QODAY Qty: 45 3RF Patient Comments: PT TAKES IN EVENING, Saturday, Saturday and Saturday insulin aspart U-100 [Novolog PenFill U-100 Insulin] 100 unit/mL cartridge 10 unit subcut TID Qty: 15 1RF Rx Instructions: hold if glucose is under 130 (DME) handicap placard See Rx Instructions .ROUTE .MEDSUPPLY Qty: 1 0RF Rx Instructions: Length of time: 5 years Diganosis: Impaired physical mobility budesonide-formoterol [Symbicort] 160-4.5 mcg/actuation HFA aerosol inhaler 2 puff inhalation BID Qty: 3 3RF Rx Instructions: administer with spacer, rinse mouth after each use Eliquis 2.5 mg tablet 2.5 mg PO BID Qty: 180 4RF (DME) OneTouch Ultra Test Strip See Rx Instructions .Route Qty: 180 1RF Rx Instructions: Check three to four times a day. albuterol sulfate [Ventolin HFA] 90 mcg/actuation HFA aerosol inhaler 2 inh INHALATION Q4H PRN (Reason: shortness of breath or wheezing) Qty: 18 6RF ranolazine 500 mg tablet extended release 12 hr 500 mg PO BID Qty: 180 3RF hydralazine 100 mg tablet 100 mg PO BID Qty: 180 3RF ropinirole 1 mg tablet 3 mg PO QHS Qty: 90 11RF Rx Instructions: administer 2-3 tablets, 1-3 hours before bedtime (DME) FreeStyle [place] 3 Plus Sensor Device See Rx Instructions .Route Qty: 3 0RF Rx Instructions: As directed (DME) pen needle, diabetic [Unifine Pentips] 31 gauge x 1/4 needle See Rx Instructions .ROUTE .COMPLEX Qty: 100 1RF Dose Instruction: use 3 TO 4 needles daily Rx Instructions: use 3 TO 4 needles daily nitroglycerin [Nitrostat] 0.4 mg tablet, sublingual 0.4 mg SUBLINGUAL Q5-15M PRN (Reason: chest pain) Qty: 25 2RF potassium chloride 10 mEq tablet,ER particles/crystals 20 meq PO BIDCM Qty: 60 0RF Referrals / Follow Up: Raiz Garrison MD [Primary Care Provider] - Within 1 Week Luiz Painter DO [Med Staff - Active Staff] - 03/23/25 (Follow up on March 23t 2:15pm as scheduled) Nikolai Tsang MD [Med Staff - Active Staff] - Within 2 Weeks (see for care of heart failure) Disposition Disposition (needs filled in before D/C Order can be placed): Home Health Service Charges/Coding Visit Charges Inpatient E&M: 18538 Disch Hosp >30min 03/09/25 1634 <Electronically signed by Tracey Orantes MD> Cosigner Signature (if applicable): CC: Dr. Riaz Garrison MD; Dr. Tracey Orantes MD~ Signed [facility] Work Phone: Evaluation note* Diagnosis Peripheral arterial disease (HCC)- Primary Peripheral vascular disease, unspecified [facility] Diagnosis Onset Date Resolution Status MARIXA (obstructive sleep apnea) chronic Restless legs syndrome chron ic Chest pain acute ALMEIDA (dyspnea on exertion) ac [place] Abdominal aortic aneurysm (AAA) chronic Atherosclerotic heart diseas e of [place] coronary artery without angina pectoris chronic Essential (primary) hypertension chronic HLD (hyperlipidemia) chronic History of coronary artery stent placement February 16, 008 resolved Asthma-COPD overlap syndrome chronic MARIXA (obstructive sleep apnea) chronic Acute cystitis with hematuria acute Recurrent urinary tract infection acute ALMEIDA (dyspnea on exertion) ac [place] Abdominal aortic aneurysm (AAA) chronic Atherosclerotic heart diseas e of [place] coronary artery without angina pectoris chronic Essential (primary) hypertension chronic HLD (hyperlipidemia) chronic [facility] Work Phone: Evaluation note* Diagnosis Onychomycosis- Primary Dermatophytosis of nail Pain in toe of right foot Pain in limb Pain in toe of left foot Pain in limb Diabetic polyneuropathy associated with type 2 diabetes mellitus (HCC) PAD (peripheral artery disease) (HCC) Peripheral vascular disease, unspecified [facility] Diagnosis Well controlled type 2 diabetes [...] tract symptoms (LUTS) [facility] Diagnosis Onset Date Resolution Status MARIXA (obstructive sleep apnea) chronic Restless legs syndrome chron ic Chest pain acute ALMEIDA (dyspnea on exertion) ac [place] Abdominal aortic aneurysm (AAA) chronic Atherosclerotic heart diseas e of [place] coronary artery without angina pectoris chronic Essential (primary) hypertension chronic HLD (hyperlipidemia) chronic History of coronary artery stent placement February 16 008 resolved Asthma-COPD overlap syndrome chronic MARIXA (obstructive sleep apnea) chronic Acute cystitis with hematuria acute Recurrent urinary tract infection acute ALMEIDA (dyspnea on exertion) [place] Abdominal aortic aneurysm (AAA) chronic Atherosclerotic heart diseas e of [place] coronary artery without angina pectoris chronic Essential (primary) hypertension chronic HLD (hyperlipidemia) chronic Asthma-COPD overlap syndrome chronic MARIXA (obstructive sleep apnea) chronic Restless legs syndrome chron ic [facility] Work Phone: Evaluation note* Diagnosis Onset Date Resolution Status Urinary tract infection none active Acute cystitis with hematuria acute Recurrent urinary tract infection acute ALMEIDA (dyspnea on exertion) [place] Abdominal aortic aneurysm (AAA) chronic Atherosclerotic heart diseas e of [place] coronary artery without angina pectoris chronic Essential (primary) hypertension chronic HLD (hyperlipidemia) chronic Asthma-COPD overlap syndrome chronic MARIXA (obstructive sleep apnea) chronic Restless legs syndrome chron ic Abdominal aortic aneurysm ac [place] Allergic rhinitis acute BPH (benign prostatic hyperplasia) acute Coronary artery disease acut e Debility acute Diabetes mellitus acute Gastroesophageal reflux disease acute History of transurethral resection of prostate acute Hyperlipidemia acute Kidney stone acute Obstructive sleep apnea acut e Urinary retention acute Chronic obstructive pulmonary disease chronic Hypertension [facility] Work Phone: Evaluation note* Diagnosis S/P TURP (status post transurethral resection of prostate)- Primary Other postprocedural status Chronic idiopathic constipation Unspecified constipation Well controlled type 2 diabetes mellitus with neurological manifestations (HCC) Type II or unspecified type diabetes mellitus with neurological manifestations, not stated as uncontrolled Allergic rhinitis, unspecified seasonality, unspecified trigger Essential hypertension Unspecified essential hypertension [facility] Diagnosis Onset Date Resolution Status Urinary tract infection none active Acute cystitis with hematuria acute Recurrent urinary tract infection acute ALMEIDA (dyspnea on exertion) [place] Abdominal aortic aneurysm (AAA) chronic Atherosclerotic heart diseas e of [place] coronary artery without angina pectoris chronic Essential (primary) hypertension chronic HLD (hyperlipidemia) chronic Asthma-COPD overlap syndrome chronic MARIXA (obstructive sleep apnea) chronic Restless legs syndrome chron ic Abdominal aortic aneurysm ac [place] Allergic rhinitis acute Coronary artery disease acut e Debility acute Diabetes mellitus acute Gastroesophageal reflux disease acute History of transurethral resection of prostate acute Hyperlipidemia acute Obstructive sleep apnea acut e Chronic obstructive pulmonary disease chronic Hypertension chronic BPH (benign prostatic hyperplasia) resolved Kidney stone resolved Urinary retention resolved [facility] Work Phone: Evaluation note* Diagnosis Chronic idiopathic constipation- Primary Unspecified constipation Altered bowel habits Other symptoms involving digestive system Nausea and vomiting, unspecified vomiting type [facility] Diagnosis Chronic idiopathic constipation Unspecified constipation Altered bowel habits Other symptoms involving digestive system [facility] Diagnosis Chronic idiopathic constipation Unspecified constipation Altered bowel habits Other symptoms involving digestive system [facility] Diagnosis Chronic idiopathic constipation Unspecified constipation Altered bowel habits Other symptoms involving digestive system [facility] Diagnosis Chronic idiopathic constipation- Primary Unspecified constipation S/P TURP (status post transurethral resection of prostate) Other postprocedural status Altered bowel habits Other symptoms involving digestive system [facility] Diagnosis Onset Date Resolution Status Acute cystitis with hematuria acute Recurrent urinary tract infection acute ALMEIDA (dyspnea on exertion) [place] Abdominal aortic aneurysm (AAA) chronic Atherosclerotic heart diseas e of [place] coronary artery without angina pectoris chronic Essential (primary) hypertension chronic HLD (hyperlipidemia) chronic Asthma-COPD overlap syndrome chronic MARIXA (obstructive sleep apnea) chronic Restless legs syndrome chron ic Abdominal aortic aneurysm ac [place] Allergic rhinitis acute Coronary artery disease acut e Debility acute Diabetes mellitus acute Gastroesophageal reflux disease acute History of transurethral resection of prostate acute Hyperlipidemia acute Obstructive sleep apnea acut e Chronic obstructive pulmonary disease chronic Hypertension chronic BPH (benign prostatic hyperplasia) resolved Kidney stone resolved Urinary retention resolved ALMEIDA (dyspnea on exertion) [place] HLD (hyperlipidemia) chronic Abdominal aortic aneurysm (AAA) chronic Atherosclerotic heart diseas e of [place] coronary artery without angina pectoris chronic Essential (primary) hypertension chronic Acute respiratory failure with hypoxia acute Elevated brain natriuretic peptide (BNP) level acute Hypertensive emergency acute Hypertensive urgency acute Pulmonary edema acute Chronic constipation [facility] Work Phone: Evaluation note* Diagnosis Onset Date Resolution Status ALMEIDA (dyspnea on exertion) [place] Abdominal aortic aneurysm (AAA) chronic Atherosclerotic heart diseas e of [place] coronary artery without angina pectoris chronic Essential (primary) hypertension chronic HLD (hyperlipidemia) chronic Asthma-COPD overlap syndrome chronic MARIXA (obstructive sleep apnea) chronic Restless legs syndrome chron ic Abdominal aortic aneurysm ac [place] Allergic rhinitis acute Coronary artery disease acut e Debility acute Diabetes mellitus acute Gastroesophageal reflux disease acute History of transurethral resection of prostate acute Hyperlipidemia acute Obstructive sleep apnea acut e Chronic obstructive pulmonary disease chronic Hypertension chronic BPH (benign prostatic hyperplasia) resolved Kidney stone resolved Urinary retention resolved ALMEIDA (dyspnea on exertion) [place] HLD (hyperlipidemia) chronic Abdominal aortic aneurysm (AAA) chronic Atherosclerotic heart diseas e of [place] coronary artery without angina pectoris chronic Essential (primary) hypertension chronic Acute respiratory failure with hypoxia acute Elevated brain natriuretic peptide (BNP) level acute Hypertensive emergency acute Hypertensive urgency acute Pulmonary edema acute Chronic constipation [facility] Work Phone: Evaluation note* Diagnosis Respiratory failure, unspecified chronicity, unspecified [...] ejection fraction (HCC) [facility] Diagnosis Onset Date Resolution Status Asthma-COPD overlap syndrome chronic MARIXA (obstructive sleep apnea) chronic Restless legs syndrome chron ic Abdominal aortic aneurysm ac [place] Allergic rhinitis acute Coronary artery disease acut e Debility acute Diabetes mellitus acute Gastroesophageal reflux disease acute History of transurethral resection of prostate acute Hyperlipidemia acute Obstructive sleep apnea acut e Chronic obstructive pulmonary disease chronic Hypertension chronic BPH (benign prostatic hyperplasia) resolved Kidney stone resolved Urinary retention resolved ALMEIDA (dyspnea on exertion) [place] HLD (hyperlipidemia) chronic Abdominal aortic aneurysm (AAA) chronic Atherosclerotic heart diseas e of [place] coronary artery without angina pectoris chronic Essential (primary) hypertension chronic Acute respiratory failure with hypoxia resolved Elevated brain natriuretic peptide (BNP) level resolved Hypertensive emergency resol [place] Pulmonary edema resolved [facility] Work Phone: Evaluation note* Diagnosis Onychomycosis- Primary Dermatophytosis of nail Pain in toe of right foot Pain in limb Pain in toe of left foot Pain in limb Diabetic polyneuropathy associated with type 2 diabetes mellitus (HCC) [facility] Diagnosis Onset Date Resolution Status Asthma-COPD overlap syndrome chronic MARIXA (obstructive sleep apnea) chronic Restless legs syndrome chron ic Abdominal aortic aneurysm ac [place] Allergic rhinitis acute Debility acute Diabetes mellitus acute Gastroesophageal reflux disease acute History of transurethral resection of prostate acute Hyperlipidemia acute Obstructive sleep apnea acut e Chronic obstructive pulmonary disease chronic Hypertension chronic BPH (benign prostatic hyperplasia) resolved Kidney stone resolved Urinary retention resolved ALMEIDA (dyspnea on exertion) [place] HLD (hyperlipidemia) chronic Abdominal aortic aneurysm (AAA) chronic Essential (primary) hypertension chronic Acute respiratory failure with hypoxia resolved Elevated brain natriuretic peptide (BNP) level resolved Hypertensive emergency resol [place] Pulmonary edema resolved ALMEIDA (dyspnea on exertion) [place] Elevated blood pressure reading acute HLD (hyperlipidemia) chronic Lightheadedness acute Abdominal aortic aneurysm (AAA) chronic Essential (primary) hypertension chronic Acute electrocardiogram changes resolved Chest pain resolved ALMEIDA (dyspnea on exertion) re solved Pneumonia resolved Unstable angina resolved Hypoxemia acute Acute exacerbation of chroni c obstructive pulmonary disease chronic [facility] Work Phone: Evaluation note* Diagnosis Onset Date Resolution Status Asthma-COPD overlap syndrome chronic MARIXA (obstructive sleep apnea) chronic Restless legs syndrome chron ic Abdominal aortic aneurysm ac [place] Allergic rhinitis acute Coronary artery disease acut e Debility acute Diabetes mellitus acute Gastroesophageal reflux disease acute History of transurethral resection of prostate acute Hyperlipidemia acute Obstructive sleep apnea acut e Chronic obstructive pulmonary disease chronic Hypertension chronic BPH (benign prostatic hyperplasia) resolved Kidney stone resolved Urinary retention resolved ALMEIDA (dyspnea on exertion) [place] HLD (hyperlipidemia) chronic Abdominal aortic aneurysm (AAA) chronic Atherosclerotic heart diseas e of [place] coronary artery without angina pectoris chronic Essential (primary) hypertension chronic Acute respiratory failure with hypoxia resolved Elevated brain natriuretic peptide (BNP) level resolved Hypertensive emergency resol [place] Pulmonary edema resolved ALMEIDA (dyspnea on exertion) [place] Elevated blood pressure reading acute HLD (hyperlipidemia) chronic Lightheadedness acute Abdominal aortic aneurysm (AAA) chronic Atherosclerotic heart diseas e of [place] coronary artery without angina pectoris chronic Essential (primary) hypertension chronic Acute electrocardiogram changes acute Coronary artery disease acut e ALMEIDA (dyspnea on exertion) [place] Pneumonia acute Unstable angina acute [facility] Work Phone: Evaluation note* Diagnosis Onset Date Resolution Status Asthma-COPD overlap syndrome chronic MARIXA (obstructive sleep apnea) chronic Restless legs syndrome chron ic Abdominal aortic aneurysm ac [place] Allergic rhinitis acute Coronary artery disease acut [place] Debility acute Diabetes mellitus acute Gastroesophageal reflux disease acute History of transurethral resection of prostate acute Hyperlipidemia acute Obstructive sleep apnea acut e Chronic obstructive pulmonary disease chronic Hypertension chronic BPH (benign prostatic hyperplasia) resolved Kidney stone resolved Urinary retention resolved ALMEIDA (dyspnea on exertion) [place] HLD (hyperlipidemia) chronic Abdominal aortic aneurysm (AAA) chronic Atherosclerotic heart diseas e of [place] coronary artery without angina pectoris chronic Essential (primary) hypertension chronic Acute respiratory failure with hypoxia resolved Elevated brain natriuretic peptide (BNP) level resolved Hypertensive emergency resol [place] Pulmonary edema resolved ALMEIDA (dyspnea on exertion) [place] Elevated blood pressure reading acute HLD (hyperlipidemia) chronic Lightheadedness acute Abdominal aortic aneurysm (AAA) chronic Atherosclerotic heart diseas e of [place] coronary artery without angina pectoris chronic Essential (primary) hypertension chronic Acute electrocardiogram changes acute Anemia acute Chest pain acute Colon polyp acute Coronary artery disease acut e ALMEIDA (dyspnea on exertion) [place] Pneumonia acute Unstable angina acute Atherosclerotic heart diseas e of [place] coronary artery without angina pectoris chronic [facility] Work Phone: Evaluation note* Diagnosis Onset Date Resolution Status Asthma-COPD overlap syndrome chronic MARIXA (obstructive sleep apnea) chronic Restless legs syndrome chron ic Abdominal aortic aneurysm ac [place] Allergic rhinitis acute Coronary artery disease acut [place] Debility acute Diabetes mellitus acute Gastroesophageal reflux disease acute History of transurethral resection of prostate acute Hyperlipidemia acute Obstructive sleep apnea acut e Chronic obstructive pulmonary disease chronic Hypertension chronic BPH (benign prostatic hyperplasia) resolved Kidney stone resolved Urinary retention resolved ALMEIDA (dyspnea on exertion) [place] HLD (hyperlipidemia) chronic Abdominal aortic aneurysm (AAA) chronic Essential (primary) hypertension chronic Acute respiratory failure with hypoxia resolved Elevated brain natriuretic peptide (BNP) level resolved Hypertensive emergency resol [place] Pulmonary edema resolved ALMEIDA (dyspnea on exertion) [place] Elevated blood pressure reading acute HLD (hyperlipidemia) chronic Lightheadedness acute Abdominal aortic aneurysm (AAA) chronic Essential (primary) hypertension chronic Anemia acute Coronary artery disease acut e Acute electrocardiogram changes resolved Chest pain resolved ALMEIDA (dyspnea on exertion) re solved Pneumonia resolved Unstable angina resolved (HFpEF) heart failure with preserved ejection fraction acute Acute respiratory failure with hypoxia acute Anemia acute Colonic mass acute Coronary artery disease acut e Diabetes mellitus acute Hypertensive urgency acute Hypoxemia acute Obstructive sleep apnea acut e Pleural effusion acute Pneumonia acute Acute exacerbation of chroni c obstructive pulmonary disease chronic [facility] Work Phone: Evaluation note* Diagnosis Onset Date Resolution Status Abdominal aortic aneurysm ac [place] Allergic rhinitis acute Debility acute Gastroesophageal reflux disease acute Hyperlipidemia acute BPH (benign prostatic hyperplasia) resolved Chronic obstructive pulmonary disease resolved History of transurethral resection of prostate resolved Hypertension resolved Kidney stone resolved Urinary retention resolved ALMEIDA (dyspnea on exertion) [place] HLD (hyperlipidemia) resolve d Essential (primary) hypertension chronic Abdominal aortic aneurysm (AAA) resolved Acute respiratory failure with hypoxia resolved Elevated brain natriuretic peptide (BNP) level resolved Hypertensive emergency resol [place] Pulmonary edema resolved ALMEIDA (dyspnea on exertion) [place] HLD (hyperlipidemia) resolve d Lightheadedness acute Essential (primary) hypertension chronic Abdominal aortic aneurysm (AAA) resolved Elevated blood pressure reading resolved Acute electrocardiogram changes resolved Chest pain resolved ALMEIDA (dyspnea on exertion) re solved Pneumonia resolved Unstable angina resolved Acute exacerbation of chroni c obstructive pulmonary disease resolved Hypertensive urgency resolve d Hypoxemia resolved Pneumonia resolved ALMEIDA (dyspnea on exertion) [place] Fatigue acute Essential (primary) hypertension chronic Abdominal aortic aneurysm (AAA) resolved HLD (hyperlipidemia) resolve d Frequent hospital admissions acute Gastroesophageal reflux disease acute Asthma-COPD overlap syndrome chronic Essential (primary) hypertension chronic Peripheral vascular disease of extremity with claudication chronic Restless legs syndrome chron ic Establishing care with new doctor, encounter for noneactive Urinary retention noneactive Controlled type 2 diabetes mellitus noneactive [facility] Work Phone: Evaluation note* Diagnosis Onset Date Resolution Status Abdominal aortic aneurysm ac [place] Allergic rhinitis acute Debility acute Gastroesophageal reflux disease acute Hyperlipidemia acute Obstructive sleep apnea acut e BPH (benign prostatic hyperplasia) resolved Chronic obstructive pulmonary disease resolved History of transurethral resection of prostate resolved Hypertension resolved Kidney stone resolved Urinary retention resolved ALMEIDA (dyspnea on exertion) [place] HLD (hyperlipidemia) resolve d Essential (primary) hypertension chronic Abdominal aortic aneurysm (AAA) resolved Acute respiratory failure with hypoxia resolved Elevated brain natriuretic peptide (BNP) level resolved Hypertensive emergency resol [place] Pulmonary edema resolved ALMEIDA (dyspnea on exertion) [place] HLD (hyperlipidemia) resolve d Lightheadedness acute Essential (primary) hypertension chronic Abdominal aortic aneurysm (AAA) resolved Elevated blood pressure reading resolved Acute electrocardiogram changes resolved Chest pain resolved ALMEIDA (dyspnea on exertion) re solved Pneumonia resolved Unstable angina resolved (HFpEF) heart failure with p reserved ejection fraction acute Obstructive sleep apnea acut e Acute exacerbation of chroni c obstructive pulmonary disease resolved Hypertensive urgency resolve d Hypoxemia resolved Pneumonia resolved ALMEIDA (dyspnea on exertion) [place] Fatigue acute Essential (primary) hypertension chronic Abdominal aortic aneurysm (AAA) resolved HLD (hyperlipidemia) resolve d (HFpEF) heart failure with p reserved ejection fraction acute Frequent hospital admissions acute Gastroesophageal reflux disease acute Obstructive sleep apnea acut [place] Asthma-COPD overlap syndrome chronic Essential (primary) hypertension chronic Peripheral vascular disease of extremity with claudication chronic Restless legs syndrome chron ic Establishing care with new doctor, encounter for noneactive Urinary retention noneactive Controlled type 2 diabetes mellitus noneactive (HFpEF) heart failure with p reserved ejection fraction acute Frequent hospital admissions acute Obstructive sleep apnea acut e Asthma-COPD overlap syndrome [facility] Work Phone: Evaluation note* Diagnosis Onset Date Resolution Status ALMEIDA (dyspnea on exertion) [place] HLD (hyperlipidemia) resolve d Essential (primary) hypertension chronic Abdominal aortic aneurysm (AAA) resolved Acute respiratory failure with hypoxia resolved Elevated brain natriuretic peptide (BNP) level resolved Hypertensive emergency resol [place] Pulmonary edema resolved ALMEIDA (dyspnea on exertion) [place] HLD (hyperlipidemia) resolve d Lightheadedness acute Essential (primary) hypertension chronic Abdominal aortic aneurysm (AAA) resolved Elevated blood pressure reading resolved Acute electrocardiogram changes resolved Chest pain resolved ALMEIDA (dyspnea on exertion) re solved Pneumonia resolved Unstable angina resolved (HFpEF) heart failure with p reserved ejection fraction acute Obstructive sleep apnea acut e Acute exacerbation of chroni c obstructive pulmonary disease resolved Hypertensive urgency resolve d Hypoxemia resolved Pneumonia resolved ALMEIDA (dyspnea on exertion) [place] Fatigue acute Essential (primary) hypertension chronic Abdominal aortic aneurysm (AAA) resolved HLD (hyperlipidemia) resolve d (HFpEF) heart failure with p reserved ejection fraction acute Frequent hospital admissions acute Gastroesophageal reflux disease acute Obstructive sleep apnea acut [place] Asthma-COPD overlap syndrome chronic Essential (primary) hypertension chronic Peripheral vascular disease of extremity with claudication chronic Restless legs syndrome chron ic Establishing care with new doctor, encounter for noneactive Urinary retention noneactive Controlled type 2 diabetes mellitus noneactive (HFpEF) heart failure with p reserved ejection fraction acute Frequent hospital admissions acute Obstructive sleep apnea acut [place] Asthma-COPD overlap syndrome chronic Fatigue acute Essential (primary) hypertension chronic Abdominal aortic aneurysm (AAA) resolved HLD (hyperlipidemia) resolve d [facility] Work Phone: Evaluation note* Diagnosis Onychomycosis- Primary Dermatophytosis of nail Pain in toe of right foot Pain in limb Pain in toe of left foot Pain in limb Diabetic polyneuropathy associated with type 2 diabetes mellitus (HCC) PAD (peripheral artery disease) ([facility]) Peripheral vascular disease, unspecified [facility] Diagnosis Onset Date Resolution Status (HFpEF) heart failure with p reserved ejection fraction chronic Essential (primary) hypertension chronic Obstructive sleep apnea 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 Peripheral vascular disease of extremity with claudication chronic Restless legs syndrome chron ic Controlled type 2 diabetes mellitus noneactive Obstructive sleep apnea 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 Restless legs syndrome chron ic Spinal stenosis of lumbar region acute [facility] Work Phone: Evaluation note* Diagnosis Onychomycosis- Primary Dermatophytosis of nail Pain in toe of right foot Pain in limb Pain in toe of left foot Pain in limb Diabetic polyneuropathy associated with type 2 diabetes mellitus (HCC) PAD (peripheral artery disease) ([facility]) Peripheral vascular disease, unspecified [facility] Diagnosis Peripheral arterial disease (HCC)- Primary Peripheral vascular disease, unspecified [facility] Diagnosis Onychomycosis- Primary Dermatophytosis of nail Pain in toe of right foot Pain in limb Pain in toe of left foot Pain in limb Diabetic polyneuropathy associated with type 2 diabetes mellitus (HCC) PAD (peripheral artery disease) ([facility]) Peripheral vascular disease, unspecified [facility] Diagnosis Onset Date Resolution Status Lower back pain acute (HFpEF) heart failure with p reserved ejection fraction chronic Essential (primary) hypertension chronic Obstructive sleep apnea 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 Peripheral vascular disease of extremity with claudication chronic Restless legs syndrome chron ic Lightheadedness noneactive Itching noneactive Controlled type 2 diabetes mellitus noneactive DDD (degenerative disc disease), lumbar acute Facet arthritis of lumbar region acute (HFpEF) heart failure with p reserved ejection fraction chronic Obstructive sleep apnea 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 ALMEIDA (dyspnea on exertion) [place] Fatigue acute (HFpEF) heart failure with p reserved ejection fraction chronic Essential (primary) hypertension chronic Abdominal aortic aneurysm (AAA) resolved HLD (hyperlipidemia) resolve d [facility] Work Phone: Evaluation note* Diagnosis Onset Date Resolution Status DDD (degenerative disc disease), lumbar acute Facet arthritis of lumbar region acute (HFpEF) heart failure with p reserved ejection fraction chronic Obstructive sleep apnea 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 ALMEIDA (dyspnea on exertion) [place] Fatigue acute (HFpEF) heart failure with p reserved ejection fraction chronic Essential (primary) hypertension chronic Abdominal aortic aneurysm (AAA) resolved HLD (hyperlipidemia) resolve d Lower back pain acute (HFpEF) heart failure with p reserved ejection fraction chronic Essential (primary) hypertension chronic Obstructive sleep apnea 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 Peripheral vascular disease of extremity with claudication chronic Restless legs syndrome chron ic Lightheadedness noneactive Controlled type 2 diabetes mellitus noneactive [facility] Work Phone: Evaluation note* Diagnosis Screening for nephropathy- Primary Peripheral vascular disease (HCC) Peripheral vascular disease, unspecified [facility] Diagnosis Onset Date Resolution Status (HFpEF) heart failure with p reserved ejection fraction chronic Obstructive sleep apnea 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 ALMEIDA (dyspnea on exertion) [place] Fatigue acute (HFpEF) heart failure with p reserved ejection fraction chronic Essential (primary) hypertension chronic Abdominal aortic aneurysm (AAA) resolved HLD (hyperlipidemia) resolve d Lower back pain acute (HFpEF) heart failure with p reserved ejection fraction chronic Essential (primary) hypertension chronic Obstructive sleep apnea 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 Peripheral vascular disease of extremity with claudication chronic Restless legs syndrome chron ic Lightheadedness noneactive Controlled type 2 diabetes mellitus noneactive Lower back pain acute (HFpEF) heart failure with p reserved ejection fraction chronic Essential (primary) hypertension chronic Obstructive sleep apnea 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 Peripheral vascular disease of extremity with claudication chronic CKD (chronic kidney disease) stage 3, GFR 30-59 ml/min noneactive Controlled type 2 diabetes mellitus noneactive [facility] Work Phone: Evaluation note* Diagnosis Leg swelling- Primary Swelling of limb Peripheral vascular disease (HCC) Peripheral vascular disease, unspecified Aorto-iliac atherosclerosis (HCC) Atherosclerosis of aorta Atherosclerosis of [place] artery of both lower extremities with intermittent claudication (HCC) Atherosclerosis of [place] arteries of the extremities with intermittent claudication S/P aorta repair Other postprocedural status Former smoker Personal history of tobacco use, presenting hazards to health Essential hypertension Unspecified essential hypertension Peripheral arterial disease (HCC) Peripheral vascular disease, unspecified Superficial femoral artery occlusion (HCC) Atherosclerosis of [place] arteries of the extremities, unspecified Mixed hyperlipidemia 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) Respiratory failure, unspecified chronicity, unspecified whether with hypoxia or hypercapnia (HCC) PAD (peripheral artery disease) (HCC) Peripheral vascular disease, unspecified [facility]* Diagnosis Onset Date Resolution Status ALMEIDA (dyspnea on exertion) [place] Fatigue acute (HFpEF) heart failure with p reserved ejection fraction chronic Essential (primary) hypertension chronic Abdominal aortic aneurysm (AAA) resolved HLD (hyperlipidemia) resolve d Lower back pain acute (HFpEF) heart failure with p reserved ejection fraction chronic Essential (primary) hypertension chronic 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 sleep 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 Peripheral vascular disease of extremity with claudication chronic Restless legs syndrome chron ic Lightheadedness noneactive Controlled type 2 diabetes mellitus noneactive Lower back pain acute (HFpEF) heart failure with p reserved ejection fraction chronic Essential (primary) hypertension chronic Obstructive sleep apnea 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 Peripheral vascular disease of extremity with claudication chronic CKD (chronic kidney disease) stage 3, GFR 30-59 ml/min noneactive Controlled type 2 diabetes mellitus noneactive [facility] Work Phone: Evaluation note* Diagnosis Peripheral vascular disease (HCC)- Primary Peripheral vascular disease, unspecified [facility] Diagnosis Encounter for screening for cardiovascular disorders- Primary Screening for other and unspecified cardiovascular conditions documented in this encounter 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 Peripheral vascular disease of extremity with claudication chronic Restless legs syndrome chron ic Lightheadedness noneactive Controlled type 2 diabetes mellitus noneactive Lower back pain acute (HFpEF) heart failure with p reserved ejection fraction chronic Asthma-COPD overlap syndrome chronic Essential (primary) hypertension chronic Obstructive sleep apnea 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 Peripheral vascular disease of extremity with claudication chronic CKD (chronic kidney disease) stage 3, GFR 30-59 ml/min noneactive Controlled type 2 diabetes mellitus noneactive Nausea and vomiting acute Vertigo acute Asthma-COPD overlap syndrome chronic Peripheral vascular disease of extremity with claudication chronic [facility] Work Phone: Evaluation note* Diagnosis Onset Date Resolution Status Lower back pain acute (HFpEF) heart failure with p reserved ejection fraction chronic Asthma-COPD overlap syndrome chronic Essential (primary) hypertension chronic Obstructive sleep apnea 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 Peripheral vascular disease of extremity with claudication chronic CKD (chronic kidney disease) stage 3, GFR 30-59 ml/min noneactive Controlled type 2 diabetes mellitus noneactive Asthma-COPD overlap syndrome chronic Peripheral vascular disease of extremity with claudication chronic Nausea and vomiting resolved Vertigo resolved Dizziness acute Fatigue acute (HFpEF) heart failure with p reserved ejection fraction chronic Essential (primary) hypertension chronic Abdominal aortic aneurysm (AAA) resolved HLD (hyperlipidemia) resolve d Dizziness acute Lower back pain acute (HFpEF) heart failure with p reserved ejection fraction chronic Asthma-COPD overlap syndrome chronic Essential (primary) hypertension chronic Obstructive sleep apnea 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 Peripheral vascular disease of extremity with claudication chronic Thyroid nodule noneactive CKD (chronic kidney disease) stage 3, GFR 30-59 ml/min noneactive Abnormal chest x-ray noneact mo Controlled type 2 diabetes mellitus noneactive Hospital discharge follow-up noneactive [facility] Work Phone: Evaluation note* Diagnosis Onset Date Resolution Status Lower back pain acute (HFpEF) heart failure with p reserved ejection fraction chronic Asthma-COPD overlap syndrome chronic Essential (primary) hypertension chronic Obstructive sleep apnea 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 Peripheral vascular disease of extremity with claudication chronic CKD (chronic kidney disease) stage 3, GFR 30-59 ml/min noneactive Controlled type 2 diabetes mellitus noneactive Asthma-COPD overlap syndrome chronic Peripheral vascular disease of extremity with claudication chronic Nausea and vomiting resolved Vertigo resolved Dizziness acute Fatigue acute (HFpEF) heart failure with p reserved ejection fraction chronic Essential (primary) hypertension chronic Abdominal aortic aneurysm (AAA) resolved HLD (hyperlipidemia) resolve d Dizziness acute Lower back pain acute (HFpEF) heart failure with p reserved ejection fraction chronic Asthma-COPD overlap syndrome chronic Essential (primary) hypertension chronic Obstructive sleep apnea 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 Peripheral vascular disease of extremity with claudication chronic Thyroid nodule noneactive CKD (chronic kidney disease) stage 3, GFR 30-59 ml/min noneactive Abnormal chest x-ray noneact mo Controlled type 2 diabetes mellitus noneactive Hospital discharge follow-up noneactive Cough acute DM2 (diabetes mellitus, type 2) acute Dysuria acute [facility] Work Phone: Evaluation note* Diagnosis Peripheral arterial disease (HCC)- Primary Peripheral vascular disease, unspecified Atherosclerosis of [place] artery of left lower extremity with rest pain (HCC) Atherosclerosis of [place] arteries of the extremities with rest pain PAD (peripheral artery disease) (HCC) Peripheral vascular disease, unspecified Superficial femoral artery occlusion (HCC) Atherosclerosis of [place] arteries of the extremities, unspecified Abnormal ankle brachial index (MARILEE) 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 [facility] Diagnosis PAD (peripheral artery disease) (HCC)- Primary Peripheral vascular disease, unspecified Atherosclerosis of [place] coronary artery of [place] heart without angina pectoris Peripheral arterial disease (HCC) Peripheral vascular disease, unspecified Mixed hyperlipidemia Symptom of leg swelling [facility] Diagnosis Onset Date Resolution Status Asthma-COPD overlap syndrome chronic Peripheral vascular disease of extremity with claudication chronic Nausea and vomiting resolved Vertigo resolved Dizziness acute Fatigue acute (HFpEF) heart failure with p reserved ejection fraction chronic Essential (primary) hypertension chronic Abdominal aortic aneurysm (AAA) resolved HLD (hyperlipidemia) resolve d Dizziness acute Lower back pain acute (HFpEF) heart failure with p reserved ejection fraction chronic Asthma-COPD overlap syndrome chronic Essential (primary) hypertension chronic Obstructive sleep apnea 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 Peripheral vascular disease of extremity with claudication chronic Thyroid nodule noneactive CKD (chronic kidney disease) stage 3, GFR 30-59 ml/min noneactive Abnormal chest x-ray noneact mo Controlled type 2 diabetes mellitus noneactive Hospital discharge follow-up noneactive Cough acute DM2 (diabetes mellitus, type 2) acute Dysuria acute Asthma-COPD overlap syndrome chronic Obstructive sleep apnea 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 Anemia acute Atrial fibrillation acute Dyspnea acute Hospital discharge follow-up acute PAD (peripheral artery disease) acute (HFpEF) heart failure with p reserved ejection fraction chronic Anemia acute [facility] Work Phone: Evaluation note* Diagnosis Onychomycosis- Primary Dermatophytosis of nail Pain in toe of right foot Pain in limb Pain in toe of left foot Pain in limb PAD (peripheral artery disease) (HCC) Peripheral vascular disease, unspecified Diabetic polyneuropathy associated with type 2 diabetes mellitus (HCC) [facility] Diagnosis Onset Date Resolution Status Asthma-COPD overlap syndrome chronic Peripheral vascular disease of extremity with claudication chronic Nausea and vomiting resolved Vertigo resolved Dizziness acute Fatigue acute (HFpEF) heart failure with p reserved ejection fraction chronic Essential (primary) hypertension chronic Abdominal aortic aneurysm (AAA) resolved HLD (hyperlipidemia) resolve d Dizziness acute Lower back pain acute (HFpEF) heart failure with p reserved ejection fraction chronic Asthma-COPD overlap syndrome chronic Essential (primary) hypertension chronic Obstructive sleep apnea 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 Peripheral vascular disease of extremity with claudication chronic Thyroid nodule noneactive CKD (chronic kidney disease) stage 3, GFR 30-59 ml/min noneactive Abnormal chest x-ray noneact mo Controlled type 2 diabetes mellitus noneactive Hospital discharge follow-up noneactive Cough acute DM2 (diabetes mellitus, type 2) acute Dysuria acute Asthma-COPD overlap syndrome chronic Obstructive sleep apnea 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 Anemia acute Atrial fibrillation acute Dyspnea acute Hospital discharge follow-up acute PAD (peripheral artery disease) acute (HFpEF) heart failure with p reserved ejection fraction chronic Anemia acute Fatigue acute (HFpEF) heart failure with p reserved ejection fraction chronic Essential (primary) hypertension chronic Abdominal aortic aneurysm (AAA) resolved HLD (hyperlipidemia) resolve d [facility] Work Phone: Evaluation note* Diagnosis Onset Date Resolution Status Asthma-COPD overlap syndrome chronic Peripheral vascular disease of extremity with claudication chronic Nausea and vomiting resolved Vertigo resolved Dizziness acute Fatigue acute (HFpEF) heart failure with p reserved ejection fraction chronic Essential (primary) hypertension chronic Abdominal aortic aneurysm (AAA) resolved HLD (hyperlipidemia) resolve d Dizziness acute Lower back pain acute (HFpEF) heart failure with p reserved ejection fraction chronic Asthma-COPD overlap syndrome chronic Essential (primary) hypertension chronic Obstructive sleep apnea 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 Peripheral vascular disease of extremity with claudication chronic Thyroid nodule noneactive CKD (chronic kidney disease) stage 3, GFR 30-59 ml/min noneactive Abnormal chest x-ray noneact mo Controlled type 2 diabetes mellitus noneactive Hospital discharge follow-up noneactive Cough acute DM2 (diabetes mellitus, type 2) acute Dysuria acute Asthma-COPD overlap syndrome chronic Obstructive sleep apnea 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 Anemia acute Atrial fibrillation acute Dyspnea acute Hospital discharge follow-up acute PAD (peripheral artery disease) acute (HFpEF) heart failure with p reserved ejection fraction chronic Anemia acute Fatigue acute (HFpEF) heart failure with p reserved ejection fraction chronic Essential (primary) hypertension chronic Abdominal aortic aneurysm (AAA) resolved HLD (hyperlipidemia) resolve d Anemia acute Urinary retention acute (HFpEF) heart failure with p reserved ejection fraction chronic Asthma-COPD overlap syndrome chronic CKD (chronic kidney disease) [facility] Work Phone: Evaluation note* Diagnosis Onset Date Resolution Status Dizziness acute Lower back pain acute (HFpEF) heart failure with p reserved ejection fraction chronic Asthma-COPD overlap syndrome chronic Essential (primary) hypertension chronic Obstructive sleep apnea 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 Peripheral vascular disease of extremity with claudication chronic Thyroid nodule noneactive CKD (chronic kidney disease) stage 3, GFR 30-59 ml/min noneactive Abnormal chest x-ray noneact mo Controlled type 2 diabetes mellitus noneactive Hospital discharge follow-up noneactive Cough acute DM2 (diabetes mellitus, type 2) acute Dysuria acute Asthma-COPD overlap syndrome chronic Obstructive sleep apnea 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 Anemia acute Atrial fibrillation acute Dyspnea acute Hospital discharge follow-up acute PAD (peripheral artery disease) acute (HFpEF) heart failure with p reserved ejection fraction chronic Anemia acute Fatigue acute (HFpEF) heart failure with p reserved ejection fraction chronic Essential (primary) hypertension chronic Abdominal aortic aneurysm (AAA) resolved HLD (hyperlipidemia) resolve d Anemia acute Urinary retention acute (HFpEF) heart failure with p reserved ejection fraction chronic Asthma-COPD overlap syndrome chronic CKD (chronic kidney disease) [facility] Work Phone: Evaluation note* Diagnosis Onset Date Resolution Status DM2 (diabetes mellitus, type 2) acute Dysuria acute Cough resolved Asthma-COPD overlap syndrome chronic Obstructive sleep apnea 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 Anemia acute Atrial fibrillation acute Dyspnea acute PAD (peripheral artery disease) acute (HFpEF) heart failure with p reserved ejection fraction chronic Hospital discharge follow-up resolved Anemia acute Fatigue acute (HFpEF) heart failure with p reserved ejection fraction chronic Essential (primary) hypertension chronic Abdominal aortic aneurysm (AAA) resolved HLD (hyperlipidemia) resolve d Anemia acute Urinary retention acute (HFpEF) heart failure with p reserved ejection fraction chronic Asthma-COPD overlap syndrome chronic CKD (chronic kidney disease) chronic Atrial fibrillation acute Lower back pain acute Urinary retention acute (HFpEF) heart failure with p reserved ejection fraction chronic Asthma-COPD overlap syndrome chronic Essential (primary) hypertension chronic Obstructive sleep apnea 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 Peripheral vascular disease of extremity with claudication chronic Colonic mass noneactive Thyroid nodule noneactive CKD (chronic kidney disease) stage 3, GFR 30-59 ml/min noneactive Controlled type 2 diabetes mellitus noneactive Constipation noneactive [facility] Work Phone: Evaluation note* Diagnosis Onset Date Resolution Status DM2 (diabetes mellitus, type 2) acute Dysuria acute Cough resolved Asthma-COPD overlap syndrome chronic Obstructive sleep apnea 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 Anemia acute Atrial fibrillation acute Dyspnea acute PAD (peripheral artery disease) acute (HFpEF) heart failure with p reserved ejection fraction chronic Hospital discharge follow-up resolved Anemia acute Fatigue acute (HFpEF) heart failure with p reserved ejection fraction chronic Essential (primary) hypertension chronic Abdominal aortic aneurysm (AAA) resolved HLD (hyperlipidemia) resolve d Anemia acute Urinary retention acute (HFpEF) heart failure with p reserved ejection fraction chronic Asthma-COPD overlap syndrome chronic CKD (chronic kidney disease) chronic Atrial fibrillation acute Lower back pain acute Urinary retention acute (HFpEF) heart failure with p reserved ejection fraction chronic Asthma-COPD overlap syndrome chronic Essential (primary) hypertension chronic Obstructive sleep apnea 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 Peripheral vascular disease of extremity with claudication chronic Colonic mass noneactive Thyroid nodule noneactive CKD (chronic kidney disease) stage 3, GFR 30-59 ml/min noneactive Controlled type 2 diabetes mellitus noneactive Constipation noneactive Acute respiratory insufficiency acute Bilateral edema of lower extremity acute Chronic anemia chronic Chronic kidney disease chron ic [facility] Work Phone: Evaluation note* Diagnosis Onset Date Resolution Status DM2 (diabetes mellitus, type 2) acute Dysuria acute Cough resolved Asthma-COPD overlap syndrome chronic Obstructive sleep apnea 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 Anemia acute Atrial fibrillation acute Dyspnea acute PAD (peripheral artery disease) acute (HFpEF) heart failure with p reserved ejection fraction chronic Hospital discharge follow-up resolved Anemia acute Fatigue acute (HFpEF) heart failure with p reserved ejection fraction chronic Essential (primary) hypertension chronic Abdominal aortic aneurysm (AAA) resolved HLD (hyperlipidemia) resolve d Anemia acute Urinary retention acute (HFpEF) heart failure with p reserved ejection fraction chronic Asthma-COPD overlap syndrome chronic CKD (chronic kidney disease) chronic Atrial fibrillation acute Lower back pain acute Urinary retention acute (HFpEF) heart failure with p reserved ejection fraction chronic Asthma-COPD overlap syndrome chronic Essential (primary) hypertension chronic Obstructive sleep apnea 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 Peripheral vascular disease of extremity with claudication chronic Colonic mass noneactive Thyroid nodule noneactive CKD (chronic kidney disease) stage 3, GFR 30-59 ml/min noneactive Controlled type 2 diabetes mellitus noneactive Constipation noneactive Acute respiratory insufficiency acute Bilateral edema of lower extremity acute Asthma-COPD overlap syndrome chronic Chronic anemia chronic Chronic kidney disease chron ic [facility] Work Phone: Evaluation note* Diagnosis Onset Date Resolution Status DM2 (diabetes mellitus, type 2) acute Dysuria acute Cough resolved Obstructive sleep apnea 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 Anemia acute Atrial fibrillation acute Dyspnea acute PAD (peripheral artery disease) acute (HFpEF) heart failure with p reserved ejection fraction chronic Hospital discharge follow-up resolved Anemia acute Fatigue acute (HFpEF) heart failure with p reserved ejection fraction chronic Essential (primary) hypertension chronic Abdominal aortic aneurysm (AAA) resolved HLD (hyperlipidemia) resolve d Anemia acute Urinary retention acute (HFpEF) heart failure with p reserved ejection fraction chronic CKD (chronic kidney disease) chronic Atrial fibrillation acute Lower back pain acute Urinary retention acute (HFpEF) heart failure with p reserved ejection fraction chronic Essential (primary) hypertension chronic Obstructive sleep apnea 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 Peripheral vascular disease of extremity with claudication chronic Colonic mass noneactive Thyroid nodule noneactive CKD (chronic kidney disease) stage 3, GFR 30-59 ml/min noneactive Controlled type 2 diabetes mellitus noneactive Constipation noneactive Acute respiratory insufficiency acute Bilateral edema of lower extremity acute Chronic anemia chronic Acute on chronic heart failu re with normal ejection fraction noneactive Colonic mass noneactive Controlled type 2 diabetes mellitus noneactive Hospital discharge follow-up noneactive [facility] Work Phone: Evaluation note* Diagnosis Onset Date Resolution Status Obstructive sleep apnea 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 Anemia acute Atrial fibrillation acute Dyspnea acute PAD (peripheral artery disease) acute (HFpEF) heart failure with p reserved ejection fraction chronic Hospital discharge follow-up resolved Anemia acute Fatigue acute (HFpEF) heart failure with p reserved ejection fraction chronic Essential (primary) hypertension chronic Abdominal aortic aneurysm (AAA) resolved HLD (hyperlipidemia) resolve d Anemia acute Urinary retention acute (HFpEF) heart failure with p reserved ejection fraction chronic CKD (chronic kidney disease) chronic Atrial fibrillation acute Lower back pain acute Urinary retention acute (HFpEF) heart failure with p reserved ejection fraction chronic Essential (primary) hypertension chronic Obstructive sleep apnea 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 Peripheral vascular disease of extremity with claudication chronic Colonic mass noneactive Thyroid nodule noneactive CKD (chronic kidney disease) stage 3, GFR 30-59 ml/min noneactive Controlled type 2 diabetes mellitus noneactive Constipation noneactive Acute respiratory insufficiency acute Bilateral edema of lower extremity acute Chronic anemia chronic Acute on chronic heart failu re with normal ejection fraction noneactive Colonic mass noneactive Controlled type 2 diabetes mellitus noneactive Hospital discharge follow-up noneactive Edema acute (HFpEF) heart failure with p reserved ejection fraction chronic Chronic anemia chronic Essential (primary) hypertension chronic Abdominal aortic aneurysm (AAA) resolved HLD (hyperlipidemia) resolve d [facility] Work Phone: Evaluation note* Diagnosis Colonic mass- Primary Other specified disorder of intestines [facility] Diagnosis Mass of colon- Primary Other specified disorder of intestines [facility] Diagnosis Mass of colon Other specified disorder of intestines [facility] Diagnosis Onychomycosis- Primary Dermatophytosis of nail Pain in toe of right foot Pain in limb Pain in toe of left foot Pain in limb PAD (peripheral artery disease) (HCC) Peripheral vascular disease, unspecified Diabetic polyneuropathy associated with type 2 diabetes mellitus (HCC) [facility] Diagnosis PAD (peripheral artery disease) (HCC) Peripheral vascular disease, unspecified Mitral valve disorder Mitral valve disorders Hyperlipidemia, unspecified hyperlipidemia type Anemia, unspecified type Atherosclerosis of coronary artery of [place] heart without angina pectoris, unspecified vessel or lesion type Essential hypertension Unspecified essential hypertension Well controlled type 2 diabetes mellitus with neurological manifestations (HCC) Type II or unspecified type diabetes mellitus with neurological manifestations, not stated as uncontrolled Tobacco use disorder Venous insufficiency (chronic) (peripheral) Unspecified venous (peripheral) insufficiency Acute post-operative pain Anemia Anemia, unspecified Well controlled type 2 diabetes mellitus with neurological manifestations (HCC) Type II or unspecified type diabetes mellitus with neurological manifestations, not stated as uncontrolled Hyperlipidemia Other and unspecified hyperlipidemia Venous insufficiency (chronic) (peripheral) Unspecified venous (peripheral) insufficiency Mitral valve disorder Mitral valve disorders Obesity, Class I, BMI 30-34.9 Obesity, unspecified Superficial occlusion of femoral artery (HCC) [I70.209]- Primary Atherosclerosis of [place] arteries of the extremities, unspecified Preop examination Preoperative examination, unspecified Anemia, unspecified type Stage 3a chronic kidney disease (HCC) Chronic obstructive pulmonary disease with acute exacerbation (HCC) Obstructive chronic bronchitis with exacerbation Former smoker Personal history of tobacco use, presenting hazards to health Mixed hyperlipidemia Essential hypertension Unspecified essential hypertension S/P aorta repair Other postprocedural status Onychomycosis- Primary Dermatophytosis of nail Pain in toe of right foot Pain in limb Pain in toe of left foot Pain in limb Diabetic polyneuropathy associated with type 2 diabetes mellitus (HCC) [facility] Diagnosis PAD (peripheral artery disease) (HCC) Peripheral vascular disease, unspecified Mitral valve disorder Mitral valve disorders Hyperlipidemia, unspecified hyperlipidemia type Anemia, unspecified type Atherosclerosis of coronary artery of [place] heart without angina pectoris, unspecified vessel or lesion type Essential hypertension Unspecified essential hypertension Well controlled type 2 diabetes mellitus with neurological manifestations (HCC) Type II or unspecified type diabetes mellitus with neurological manifestations, not stated as uncontrolled Tobacco use disorder Venous insufficiency (chronic) (peripheral) Unspecified venous (peripheral) insufficiency Acute post-operative pain Anemia Anemia, unspecified Well controlled type 2 diabetes mellitus with neurological manifestations (HCC) Type II or unspecified type diabetes mellitus with neurological manifestations, not stated as uncontrolled Hyperlipidemia Other and unspecified hyperlipidemia Venous insufficiency (chronic) (peripheral) Unspecified venous (peripheral) insufficiency Mitral valve disorder Mitral valve disorders Obesity, Class I, BMI 30-34.9 Obesity, unspecified Superficial occlusion of femoral artery (HCC) [I70.209]- Primary Atherosclerosis of [place] arteries of the extremities, unspecified Preop examination Preoperative examination, unspecified Anemia, unspecified type Stage 3a chronic kidney disease (HCC) Chronic obstructive pulmonary disease with acute exacerbation (HCC) Obstructive chronic bronchitis with exacerbation Former smoker Personal history of tobacco use, presenting hazards to health Mixed hyperlipidemia Essential hypertension Unspecified essential hypertension S/P aorta repair Other postprocedural status Peripheral arterial disease (HCC)- Primary Peripheral vascular disease, unspecified [facility] Diagnosis PAD (peripheral artery disease) (HCC) Peripheral vascular disease, unspecified Mitral valve disorder Mitral valve disorders Hyperlipidemia, unspecified hyperlipidemia type Anemia, unspecified type Atherosclerosis of coronary artery of [place] heart without angina pectoris, unspecified vessel or lesion type Essential hypertension Unspecified essential hypertension Well controlled type 2 diabetes mellitus with neurological manifestations (HCC) Type II or unspecified type diabetes mellitus with neurological manifestations, not stated as uncontrolled Tobacco use disorder Venous insufficiency (chronic) (peripheral) Unspecified venous (peripheral) insufficiency Acute post-operative pain Anemia Anemia, unspecified Well controlled type 2 diabetes mellitus with neurological manifestations (HCC) Type II or unspecified type diabetes mellitus with neurological manifestations, not stated as uncontrolled Hyperlipidemia Other and unspecified hyperlipidemia Venous insufficiency (chronic) (peripheral) Unspecified venous (peripheral) insufficiency Mitral valve disorder Mitral valve disorders Obesity, Class I, BMI 30-34.9 Obesity, unspecified Superficial occlusion of femoral artery (HCC) [I70.209]- Primary Atherosclerosis of [place] arteries of the extremities, unspecified Preop examination Preoperative examination, unspecified Anemia, unspecified type Stage 3a chronic kidney disease (HCC) Chronic obstructive pulmonary disease with acute exacerbation (HCC) Obstructive chronic bronchitis with exacerbation Former smoker Personal history of tobacco use, presenting hazards to health Mixed hyperlipidemia Essential hypertension Unspecified essential hypertension S/P aorta repair Other postprocedural status Onychomycosis- Primary Dermatophytosis of nail Pain in toe of right foot Pain in limb Pain in toe of left foot Pain in limb Diabetic polyneuropathy associated with type 2 diabetes mellitus (HCC) [facility] Diagnosis PAD (peripheral artery disease) (HCC) Peripheral vascular disease, unspecified Mitral valve disorder Mitral valve disorders Hyperlipidemia, unspecified hyperlipidemia type Anemia, unspecified type Atherosclerosis of coronary artery of [place] heart without angina pectoris, unspecified vessel or lesion type Essential hypertension Unspecified essential hypertension Well controlled type 2 diabetes mellitus with neurological manifestations (HCC) Type II or unspecified type diabetes mellitus with neurological manifestations, not stated as uncontrolled Tobacco use disorder Venous insufficiency (chronic) (peripheral) Unspecified venous (peripheral) insufficiency Acute post-operative pain Anemia Anemia, unspecified Well controlled type 2 diabetes mellitus with neurological manifestations (HCC) Type II or unspecified type diabetes mellitus with neurological manifestations, not stated as uncontrolled Hyperlipidemia Other and unspecified hyperlipidemia Venous insufficiency (chronic) (peripheral) Unspecified venous (peripheral) insufficiency Mitral valve disorder Mitral valve disorders Obesity, Class I, BMI 30-34.9 Obesity, unspecified Superficial occlusion of femoral artery (HCC) [I70.209]- Primary Atherosclerosis of [place] arteries of the extremities, unspecified Preop examination Preoperative examination, unspecified Anemia, unspecified type Stage 3a chronic kidney disease (HCC) Chronic obstructive pulmonary disease with acute exacerbation (HCC) Obstructive chronic bronchitis with exacerbation Former smoker Personal history of tobacco use, presenting hazards to health Mixed hyperlipidemia Essential hypertension Unspecified essential hypertension S/P aorta repair Other postprocedural status Onychomycosis- Primary Dermatophytosis of nail Pain in toe of right foot Pain in limb Pain in toe of left foot Pain in limb Diabetic polyneuropathy associated with type 2 diabetes mellitus (HCC) PAD (peripheral artery disease) (HCC) Peripheral vascular disease, unspecified documented in this encounter [facility] note* Diagnosis PAD (peripheral artery disease) (HCC) Peripheral vascular disease, unspecified Mitral valve disorder Mitral valve disorders Hyperlipidemia, unspecified hyperlipidemia type Anemia, unspecified type Atherosclerosis of coronary artery of [place] heart without angina pectoris, unspecified vessel or lesion type Essential hypertension Unspecified essential hypertension Well controlled type 2 diabetes mellitus with neurological manifestations (HCC) Type II or unspecified type diabetes mellitus with neurological manifestations, not stated as uncontrolled Tobacco use disorder Venous insufficiency (chronic) (peripheral) Unspecified venous (peripheral) insufficiency Acute post-operative pain Anemia Anemia, unspecified Well controlled type 2 diabetes mellitus with neurological manifestations (HCC) Type II or unspecified type diabetes mellitus with neurological manifestations, not stated as uncontrolled Hyperlipidemia Other and unspecified hyperlipidemia Venous insufficiency (chronic) (peripheral) Unspecified venous (peripheral) insufficiency Mitral valve disorder Mitral valve disorders Obesity, Class I, BMI 30-34.9 Obesity, unspecified Superficial occlusion of femoral artery (HCC) [I70.209]- Primary Atherosclerosis of [place] arteries of the extremities, unspecified Preop examination Preoperative examination, unspecified Anemia, unspecified type Stage 3a chronic kidney disease (HCC) Chronic obstructive pulmonary disease with acute exacerbation (HCC) Obstructive chronic bronchitis with exacerbation Former smoker Personal history of tobacco use, presenting hazards to health Mixed hyperlipidemia Essential hypertension Unspecified essential hypertension S/P aorta repair Other postprocedural status Onychomycosis- Primary Dermatophytosis of nail Pain in toe of right foot Pain in limb Pain in toe of left foot Pain in limb Diabetic polyneuropathy associated with type 2 diabetes mellitus (HCC) PAD (peripheral artery disease) (HCC) Peripheral vascular disease, unspecified Xerosis cutis Other specified disease of sebaceous glands [facility] Diagnosis PAD (peripheral artery disease) Peripheral vascular disease, unspecified Mitral valve disorder Mitral valve disorders Hyperlipidemia, unspecified hyperlipidemia type Anemia, unspecified type Atherosclerosis of coronary artery of [place] heart without angina pectoris, unspecified vessel or lesion type Essential hypertension Unspecified essential hypertension Well controlled type 2 diabetes mellitus with neurological manifestations (HCC) Type II or unspecified type diabetes mellitus with neurological manifestations, not stated as uncontrolled Tobacco use disorder Venous insufficiency (chronic) (peripheral) Unspecified venous (peripheral) insufficiency Acute post-operative pain Anemia Anemia, unspecified Well controlled type 2 diabetes mellitus with neurological manifestations (HCC) Type II or unspecified type diabetes mellitus with neurological manifestations, not stated as uncontrolled Hyperlipidemia Other and unspecified hyperlipidemia Venous insufficiency (chronic) (peripheral) Unspecified venous (peripheral) insufficiency Mitral valve disorder Mitral valve disorders Obesity, Class I, BMI 30-34.9 Obesity, unspecified Superficial occlusion of femoral artery (HCC) [I70.209]- Primary Atherosclerosis of [place] arteries of the extremities, unspecified Preop examination Preoperative examination, unspecified Anemia, unspecified type Stage 3a chronic kidney disease (HCC) Chronic obstructive pulmonary disease with acute exacerbation (HCC) Obstructive chronic bronchitis with exacerbation Former smoker Personal history of tobacco use, presenting hazards to health Mixed hyperlipidemia Essential hypertension Unspecified essential hypertension S/P aorta repair Other postprocedural status Peripheral arterial disease- Primary Peripheral vascular disease, unspecified Aorto-iliac atherosclerosis Atherosclerosis of aorta S/P aorta repair Other postprocedural status [facility] Diagnosis PAD (peripheral artery disease) Peripheral vascular disease, unspecified Mitral valve disorder Mitral valve disorders Hyperlipidemia, unspecified hyperlipidemia type Anemia, unspecified type Atherosclerosis of coronary artery of [place] heart without angina pectoris, unspecified vessel or lesion type Essential hypertension Unspecified essential hypertension Well controlled type 2 diabetes mellitus with neurological manifestations (HCC) Type II or unspecified type diabetes mellitus with neurological manifestations, not stated as uncontrolled Tobacco use disorder Venous insufficiency (chronic) (peripheral) Unspecified venous (peripheral) insufficiency Acute post-operative pain Anemia Anemia, unspecified Well controlled type 2 diabetes mellitus with neurological manifestations (HCC) Type II or unspecified type diabetes mellitus with neurological manifestations, not stated as uncontrolled Hyperlipidemia Other and unspecified hyperlipidemia Venous insufficiency (chronic) (peripheral) Unspecified venous (peripheral) insufficiency Mitral valve disorder Mitral valve disorders Obesity, Class I, BMI 30-34.9 Obesity, unspecified Superficial occlusion of femoral artery (HCC) [I70.209]- Primary Atherosclerosis of [place] arteries of the extremities, unspecified Preop examination Preoperative examination, unspecified Anemia, unspecified type Stage 3a chronic kidney disease (HCC) Chronic obstructive pulmonary disease with acute exacerbation (HCC) Obstructive chronic bronchitis with exacerbation Former smoker Personal history of tobacco use, presenting hazards to health Mixed hyperlipidemia Essential hypertension Unspecified essential hypertension S/P aorta repair Other postprocedural status Restless legs syndrome- Primary Restless legs syndrome (RLS) Peripheral arterial disease Peripheral vascular disease, unspecified [facility] Diagnosis PAD (peripheral artery disease) Peripheral vascular disease, unspecified Mitral valve disorder Mitral valve disorders Hyperlipidemia, unspecified hyperlipidemia type Anemia, unspecified type Atherosclerosis of coronary artery of [place] heart without angina pectoris, unspecified vessel or lesion type Essential hypertension Unspecified essential hypertension Well controlled type 2 diabetes mellitus with neurological manifestations (HCC) Type II or unspecified type diabetes mellitus with neurological manifestations, not stated as uncontrolled Tobacco use disorder Venous insufficiency (chronic) (peripheral) Unspecified venous (peripheral) insufficiency Acute post-operative pain Anemia Anemia, unspecified Well controlled type 2 diabetes mellitus with neurological manifestations (HCC) Type II or unspecified type diabetes mellitus with neurological manifestations, not stated as uncontrolled Hyperlipidemia Other and unspecified hyperlipidemia Venous insufficiency (chronic) (peripheral) Unspecified venous (peripheral) insufficiency Mitral valve disorder Mitral valve disorders Obesity, Class I, BMI 30-34.9 Obesity, unspecified Superficial occlusion of femoral artery (HCC) [I70.209]- Primary Atherosclerosis of [place] arteries of the extremities, unspecified Preop examination Preoperative examination, unspecified Anemia, unspecified type Stage 3a chronic kidney disease (HCC) Chronic obstructive pulmonary disease with acute exacerbation (HCC) Obstructive chronic bronchitis with exacerbation Former smoker Personal history of tobacco use, presenting hazards to health Mixed hyperlipidemia Essential hypertension Unspecified essential hypertension S/P aorta repair Other postprocedural status Onychomycosis- Primary Dermatophytosis of nail Pain in toe of right foot Pain in limb Pain in toe of left foot Pain in limb Diabetic polyneuropathy associated with type 2 diabetes mellitus (HCC) PAD (peripheral artery disease) Peripheral vascular disease, unspecified documented [facility] Author Hansel Gillis [facility] January 26, 2024 4:48pm Note Date/Time January 26, 2024 4:2 4pm [facility] Medical Records Department [address] [place] [id number] H&P Exam - Hospitalist 01/26/24 1608 MR#: [id number] Acct: [id number] Name: DESIREE AMES Rep #:[id number] : 1935 88 From: Hansel Gillis MD PCP: Dr. Riaz Garrison MD Status:AD[place] [facility] [id number] [facility] - General General Date of Admission: 01/26/24 Date of Service: 01/26/24 Chief Complaint: Shortness of breath HPI Narrative DESIREE AMES, is a 88 M with past medical history of HTN, HLD, DM2, A-fib, PAD,CHF, MARIXA, COPD coronary artery disease with angioplasty and stenting of his RCA with mild residual disease in his distal RCA who presents to the ED with concerns regarding progressive shortness of breath since the last few months, worse over the last few days. Notes that the symptoms did not improve after recent courses therapy given by his grants specialist and reported from prior ED visits. Per the the decline has been very gradual and there is no sudden episodes of fever/changes in cough or expectoration/medication noncompliance. He recently saw his grants specialist for similar concerns, his main concern is shortness of breath, decreased functionality and is not able to walk as much as before. Has increased frequency of his nebulizer treatments but they were not helpful. He completed a course of corticosteroids prescribed in the ED from December 24 to December 25 2023. There were concerns regarding COPD exacerbation, NIOX procedure was performed and results are elevated suggesting that he would benefit from systemic steroids. He was started on prednisone 40 mg for 3 days followed by 30 for 3 days 20 for 3 days and 10 mg for 3 days. Also started on acourse of Augmentin. From a cardiac standpoint his stress test was negative in 11/26 to 05/26/2022, andhis ejection fraction was 65% on 05/14/2023. He is on carvedilol 25 mg twice daily, furosemide 40 mg daily, spironolactone 25 daily [facility] Medical History (Updated 01/26/24 @ 15:54 by DEBI Barraza) (HFpEF) heart failure with preserved ejection fraction Abdominal aortic aneurysm (AAA) Acute cystitis with hematuria Allergic rhinitis Ambulates with cane Anemia Arthritis Asthma Asthma-COPD overlap syndrome Atherosclerotic heart disease of [place] coronary artery without angina pectoris Back pain BiPAP (biphasic positive airway pressure) dependence Cancer Carotid bruit Chest pain Chronic constipation Chronic cough Colon polyp Colonic mass Constipation COPD (chronic obstructive pulmonary disease) Coronary artery disease Daytime hypersomnia DDD (degenerative disc disease), lumbar Debility DM2 (diabetes mellitus, type 2) ALMEIDA (dyspnea on exertion) Dyslipidemia Easy bruising Essential (primary) hypertension Fatigue Former smoker Frequent hospital admissions Gastroesophageal reflux disease History of edema History of heart attack History of hiatal hernia History of irregular heartbeat History of pain when walking History of renal disease History of steroid therapy History of stress test Hoarseness Hyperlipidemia Injury of back Kidney stone Leg cramps Lightheadedness Obstructive sleep apnea MARIXA (obstructive sleep apnea) Overweight Patellar bursitis of right knee Peripheral vascular disease of extremity with claudication Pleural effusion Pneumonia Pre-syncope PVD (peripheral vascular disease) Rectus sheath hematoma Recurrent urinary tract infection Restless legs syndrome Right leg swelling Seasonal allergies Shortness of breath on exertion Sleep apnea Somatic dysfunction of pelvic region Urinary retention Walker as ambulation aid Wears dentures Wears glasses Wears hearing aid Home Medications ammonium lactate 12 % lotion 1 applic topical QD-BID PRN dry skin 02/06/18 [History Last Taken Unknown] handicap placcard #1 ea 09/28/19 [Rx Last Taken Unknown] ascorbate calcium (vitamin C) 500 mg tablet 500 mg PO DAILY Bone strength 05/03/20 [History Last Taken 03/09/22] coenzyme Q10 100 mg capsule (Co Q-10) 100 mg PO DAILY 05/03/20 [History Last Taken Unknown] cholecalciferol (vitamin D3) 100 mcg (4,000 unit) tablet 100 mcg PO DAILY 11/03/20 [History Last Taken Unknown] spacer #1 ea 01/12/21 [Rx Last Taken Unknown] aspirin 81 mg chewable tablet 81 mg PO [facility] heart health 05/30/22 [History Last Taken Unknown] nitroglycerin 0.4 mg sublingual tablet (Nitrostat) 0.4 mg sublingual Q5-15M PRN chest pain #25 tabs 06/08/22 [Rx Last Taken Unknown] ipratropium 0.5 mg-albuterol 3 mg (2.5 mg base)/3 mL nebulization soln 3 ml inhalation 4X/DAY PRN PRN shortness of breath or wheezing #90 mL 08/03/22 [Rx Last Taken Unknown] furosemide 40 mg tablet 40 mg PO .COMPLEX #180 tabs 04/05/23 [Rx Last Taken Unknown] montelukast 10 mg tablet 10 mg PO QHS Respiratory #90 tabs 04/24/23 [Rx Last Taken Unknown] atorvastatin 40 mg tablet 40 mg PO QODAY cholesterol #45 tabs 05/23/23 [Rx Last Taken Unknown] carvedilol 25 mg tablet 25 mg PO BID #180 tabs 05/23/23 [Rx Last Taken Unknown] lancets #180 ea 07/18/23 [Rx Last Taken Unknown] amlodipine 10 mg tablet 10 mg PO DAILY This is a dose increase #90 tabs 08/28/23[Rx Last Taken Unknown] blood sugar diagnostic (Palm Ultra Test strips) #180 ea 09/16/23 [Rx Last Taken Unknown] budesonide-formoterol HFA 160 mcg-4.5 mcg/actuation aerosol inhaler (Symbicort) 2 puff inhalation BID #1 ea 10/23/23 [Rx Last Taken Unknown] ipratropium bromide 42 mcg (0.06 %) nasal spray 2 spray intranasal TID-QID PRN allergy symptoms #15 mL 10/23/23 [Rx Last Taken Unknown] pantoprazole 40 mg tablet,delayed release 40 mg PO DAILY reflux #90 tabs 11/19/23 [Rx Last Taken Unknown] ipratropium bromide 0.02 % solution for inhalation 2.5 ml inhalation Q6H PRN shortness of breath or wheezing #150 mL 12/06/23 [Rx Last Taken Unknown] apixaban 2.5 mg tablet (Eliquis) 2.5 mg PO BID #90 tabs 12/12/23 [Rx Last Taken Unknown] ferrous sulfate 325 mg (65 mg iron) tablet 325 mg PO Q OTHER DAY #30 tabs 12/16/23 [Rx Last Taken Unknown] loratadine 10 mg tablet 10 mg PO DAILY #90 tabs 12/16/23 [Rx Last Taken Unknown] hydralazine 100 mg tablet 100 mg PO BID #180 tabs 12/26/23 [Rx Last Taken Unknown] albuterol sulfate 90 mcg/actuation aerosol inhaler (Ventolin HFA) 2 inh inhalation Q4H PRN shortness of breath or wheezing #18 grams 01/01/24 [Rx Last Taken Unknown] ipratropium 0.5 mg-albuterol 3 mg (2.5 mg base)/3 mL nebulization soln 3 ml inhalation Q4H PRN PRN SOB &/OR WHEEZING #180 mL 01/01/24 [Rx Last Taken Unknown] magnesium citrate (OneLAX Magnesium Citrate oral solution) 300 ml PO ONCE #296 mL 01/02/24 [Rx Last Taken Unknown] pen needle, diabetic 31 gauge x 1/4 (1st Tier Unifine Pentips) #100 ea 01/15/24[Rx Last Taken Unknown] insulin glargine 100 unit/mL (3 mL) subcutaneous pen (Lantus Solostar U-100 Insulin) 18 unit subcut QAM 01/20/24 [History Last Taken Unknown] isosorbide mononitrate 30 mg tablet,extended release 24 hr 30 mg PO DAILY #90 tabs 01/22/24 [Rx Last Taken Unknown] Allergy/AdvReac Type Severity Reaction Status Date / Time cilostazol [From Pletal] Allergy Unknown Verified 01/20/24 13:28 felodipine Allergy Hives Verified 01/20/24 13:28 levofloxacin Allergy Hives Verified 01/20/24 13:28 Sulfa (Sulfonamide Allergy Unknown Verified 01/20/24 13:28 Antibiotics) Family History Father Diabetes Cancer Prostate cancer Mother Dementia Brother Parkinsons Brother Cancer Surgical History (Updated 01/20/24 @ 13:[address] Riaz Garrison MD) H/O aortic aneurysm repair (11/1998) H/O vascular surgery History of coronary artery stent placement (02/17/08) History of endarterectomy (07/2018) History of hernia repair History of left heart catheterization (03/2014) History of surgical procedure History of transurethral resection of prostate History of vascular surgery (08/2018) Social History (Updated 01/20/24 @ 13:[address] 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 Smoking Status: Former smoker quit date: 08/07/08 pack-years: 2 Tobacco: How many years used: 52 Electronic Cigarette Use: not used how long ago did patient quit smokin years ago alcohol intake: current alcohol intake frequency: holidays/special occasions only details: hx of alcohol abuse substance use type: does not use caffeine: No what type of physical activity do you participate in: other details: Nustep frequency: 5-6 times per week duration: 15-30 minutes/day seatbelt use: always do you feel safe at home: Yes ROS Review of Systems ROS Unobtainable: Denies due to encephalopathy, due to endotracheal tube, due tomental condition, due to mental status or other Constitutional Constitutional: Reports change in weight, fatigue, malaise and weakness Eyes Eyes: Denies blurry vision, change in eye color, change in vision, discharge from eye(s), double vision, erythema, eye pain, loss of vision or other ENT HEENT: Denies abnormal hearing, dysphagia, ear pain, epistaxis, headache(s), hearing loss, nasal congestion, nasal discharge, post nasal drip, sinus pressure, sore throat or other Cardiovascular Cardiovascular: Denies chest pain, claudication, dyspnea on exertion, edema, lightheadedness, orthopnea, palpitations, paroxysmal nocturnal dyspnea, rapid heart rate, syncope or other Respiratory/Chest Respiratory/Chest: Reports shortness of breath at rest, shortness of breath withexertion and wheezing Gastrointestinal Gastrointestinal: Denies abdominal pain, coffee ground emesis, constipation, diarrhea, dyspepsia, hematemesis, hematochezia, loose stools, melena, nausea, vomiting or other Genitourinary Genitourinary: Denies burning urination, difficulty urinating, dysuria, hematuria, nocturia, urinary frequency, urinary hesitancy, urinary incontinence,urinary urgency or other Musculoskeletal Musculoskeletal: Reports arthralgias and back pain Neurologic Neurologic: Denies abnormal gait, abnormal speech, confusion, disequilibrium, dizziness, focal weakness, headache(s), numbness, paresthesias, seizure-like activity, seizures, syncope, tingling, tremor(s) or other Psychiatric Psychiatric: Denies anxiety, depression, homicidal ideation, suicidal ideation or other Endocrine Endocrinology: Denies change in body appearance, cold intolerance, excessive sweating, heat intolerance, polydipsia, polyuria or other Hematologic/Lymphatic Hematologic/Lymphatic: Denies anemia, easy bleeding, easy bruising, lymphadenopathy or other Allergic/Immunologic Allergic/Immunologic: Denies rhinitis, hives, eczemia, asthma or other Vital Signs Vital Signs Vital Signs: 01/26/24 13:10 01/26/24 14:38 01/26/24 14:38 Temperature 98.3 F Temperature Source Oral Pulse Rate 63 69 Respiratory Rate 26 H 20 H Respiratory Pattern Tachypnea Blood Pressure 130/68 H Blood Pressure Mean 88 Pulse Ox 92 93 Oxygen Delivery Method Room Air Room Air 01/26/24 15:12 Temperature Temperature Source Pulse Rate 68 Respiratory Rate 30 H Respiratory Pattern Blood Pressure 132/65 H Blood Pressure Mean 87 Pulse Ox 98 Oxygen Delivery Method Room Air Weight Weight: 218 lb 11.177 oz Body Mass Index (BMI) 33.2 Physical Exam Const alert and oriented x3 HEENT normocephalic Eyes PERRL Neck no lymphadenopathy Resp Resp Narrative: Bilateral Rales present, more pronounced in the right interscapular region Auscultation: crackles and rales Cardio Cardio Narrative: Irregularly irregular heart rate GI normal to inspection, nondistended, normoactive bowel sounds Extremity Extremity Narrative: Bilateral pitting edema extending up to the knees Neuro oriented x3 Results Medical Records Data Attestation: I reviewed the patient's medical records Lab / Micro Data Attestation: I reviewed the patient's lab results. 01/26/24 13:40 01/26/24 13:40 Labs: Laboratory Results - last 24 hr 01/26/24 13:40: WBC 6.0, RBC 3.05 L, Hgb 7.6 L, Hct 26.2 L, MCV 85.9, MCH 24.9 L, MCHC 29.0 L, RDW Std Deviation 53.1 H, RDW Coeff of Justin 17.1 H, Plt Count 257,MPV 10.5, Immature Gran % (Auto) 0.500, Neut % (Auto) 68.3, Lymph % (Auto) 18.5 L, [place] % (Auto) 10.2 H, Eos % (Auto) 2.2, Baso % (Auto) 0.3, Absolute Neuts (auto) 4.1, Absolute Lymphs (auto) 1.10, Nucleated RBC % 0, Sodium 137, Potassium 3.8, Chloride 98, Carbon Dioxide 32.0, Anion Gap 7, BUN 35 H, Creatinine 2.30 H, Estim Creat Clear Calc 26.32, Est GFR (MDRD) Af Amer 35 L, Est GFR (MDRD) Non-Af 29 L, BUN/Creatinine Ratio 15.2, Glucose 282 H, Calcium 8.8, Troponin I High Sens 15, B-Natriuretic Peptide 790.9 H Imaging Radiology Impression Chest X-Ray 01/26/24 14:10 IMPRESSION: There are bilateral pleural effusions. There are bilateral infiltrates. Electronically Signed: Bartolo Castillo MD at 14:24 EDT Reading Location ID and State: [facility] / [place] , Service support , Assessment & Plan Assessment/Plan (1) Chronic kidney disease: PLAN: Plan 88-year-old man with history of COPD, A-fib with RVR, HFrEF, prior coronary artery disease, MARIXA presents to the ED with progressive worsening shortness of breath and decline in his functional status. The likely reason for his presentation is multifactorial, symptoms are not consistent with an acute exacerbation of COPD [no changes in cough, no sudden decline in shortness of breath, no desaturation]. It is likely due to ADHF on HFrEF secondary to A-fib or Pulmonary hypertension 2/2 COPD. #HFrEF: -Echocardiogram to reassess cardiac status and to rule out pulmonary hypertension -IV Lasix 40 mg twice daily [close monitor creatinine] - Restart Spironolactone and lasix #COPD: - Continue albuterol 90 mcg -Continue Symbicort 2 puff twice daily -Will hold off starting steroids at present given no features of acute respiratory deterioration - PT/OT and Case management consult #Hypertension: -Continue tab amlodipine 10 mg daily -Hydralazine 100 mg twice daily #A-fib: # Afib: Presently rate is well controlled -Continue apixaban 2.5 mg twice daily -Type carvedilol 25 mg twice daily # Prior CAD: Last stress test was negative for ischemia -Aspirin 81 mg daily -Atorvastatin 40 mg daily -Continue isosorbide mononitrate 30 mg # MARIXA: Continue bipap at home settings, consider outpatient reevaluation after discharge #Type 2 diabetes: -Continue insulin glargine 18 units subcu in the a.m. -Close sugar monitoring -Insulin sliding scale #GERD continue pantoprazole daily #CKD: creatinine at baseline at present. Continue to monitor after initiation ofthe diuretics # DVT: Low risk given the active anticoagulation for Afib. Charges/Coding Visit Charges Inpatient E&M: 36001 Init Hosp L2 01/26/24 1648 <Electronically signed by Hansel Gillis MD> Cosigner Signature (if applicable): CC: Dr. Hansel Gillis MD; Dr. Riaz Garrison MD~ Signed [facility] Work Phone: [facility] Work Phone[facility] Work Phone: Hospital Discharge instructions Additional Instructions Since you received doses in the emergency room of both medications, you may start the prescriptions morning of 12/26/2023[facility] Work Phone: Hospital Discharge instructionsAmbulatory Orders* General Surgery Location: None Selected * Nutrition Referral Location: None Selected [facility] Work Phone: Hospital Discharge instructions Additional Instructions Your workup negative with lab testing. EKG rate controlled atrial fibrillation. Chest x-ray negative. I discussed with applique sewer Dr. Allen follow-up with Mike in the office. He develop worsening symptoms, return to ED for reevaluation.[facility] Work Phone: Reason for referral (narrative)* Outpatient Procedure (Routine) - Pending Review Specialty Diagnoses / Procedures Referred By Naveen herrera Referred To Contact [facility] Diagnoses Peripheral arterial disease (HCC) Procedures PVR LEG SHANNON [facility] NON-INVASIVE PHYSIOLOGIC STUDY EXTREMITY 3 Darryl Diaz DO [address] [place] [address] [facility] [address] [place] [address] Referral ID Status Reason Start Date Expiration Date Visits Requested Visits Authorized [id number] Pending Review Auto-Generat ed Referral 01/09/2022 01/09/2023 1 1 * Outpatient Procedure (Routine) - Pending Review Specialty Diagnoses / Procedures Referred By Naveen herrera Referred To Contact [facility] Diagnoses Peripheral arterial disease (HCC) Procedures US ABD AORTA COMPLETE VAS LAB DUP-SCAN AORTA IVC ILIAC VASCL/BPGS COMPLETE Darryl Mallory DO [address] [place] [address] [facility] [address] [place], [place] [id number] Referral ID Status Reason Start Date Expiration Date Visits Requested Visits Authorized [id number] Pending Review Auto-Generat ed Referral 01/09/2022 01/09/2023 1 1 [facility] for referral (narrative)* Outpatient Procedure (Routine) - Authorized Specialty Diagnoses / Procedures Referred By Contac t Referred To Contact [facility] Diagnoses Chronic idiopathic constipation Altered bowel habits Procedures COLONOSCOPY DIAGNOSTIC COLONOSCOPY FLX DX W/COLLJ SPEC WHEN PFRMColton Dahl MD [address] [place] [address] [facility] [address] [place], [place] [id number] Referral ID Status Reason Start Date Expiration Date Visits Requested Visits Authorized [id number] Authorized Auto-Generat ed Referral 04/26/2022 04/26/2023 1 1 * Diagnostic Procedure Only (Routine) - Closed Specialty Diagnoses / Procedures Referred By Naveen herrera Referred To Contact XR IMAGING Diagnoses Chronic idiopathic constipation Altered bowel habits Procedures XR ABDOMEN 1V SUPINE RADIOLOGIC EXAM ABDOMEN 1 VIEW Colton Mendez MD [address] [place] [address] Xr Imaging Referral ID Status Reason Start Date Expiration Date V isits Requested Visits Authorized [id number] Closed Auto-Generate d Referral 04/26/2022 05/26/2023 1 1 [facility] for referral (narrative)* Diagnostic Procedure Only (Routine) - Closed Specialty Diagnoses / Procedures Referred By Naveen herrera Referred To Contact [facility] IMAG[facility] Diagnoses Chronic idiopathic constipation Altered bowel habits Procedures XR ABDOMEN 1V SUPINE RADIOLOGIC EXAM ABDOMEN 1 VIEW Colton Mendez MD [address] [place] [address] Xr Imaging Referral ID Status Reason Start Date Expiration Date V isits Requested Visits Authorized [id number] Closed Auto-Generate d Referral 04/26/2022 05/26/2023 1 1 [facility] for referral (narrative)* Diagnostic Procedure Only (Routine) - Closed Specialty Diagnoses / Procedures Referred By Naveen herrera Referred To Contact XR IMAGING Diagnoses Chronic idiopathic constipation Altered bowel habits Procedures XR ABDOMEN 1V SUPINE RADIOLOGIC EXAM ABDOMEN 1 VIEW Colton Mendez MD [address] [place] [address] Xr Imaging Referral ID Status Reason Start Date Expiration Date V isits Requested Visits Authorized [id number] Closed Auto-Generate d Referral 05/03/2022 05/26/2023 1 1 [facility] for referral (narrative)* Diagnostic Procedure Only (Routine) - Pending Review Specialty Diagnoses / Procedures Referred By Naveen herrera Referred To Contact XR IMAGING Diagnoses Altered bowel habits Procedures XR ABDOMEN 1V SUPINE RADIOLOGIC EXAM ABDOMEN 1 VIEW Dominique Reese APRN.CNS [address] [place] [address] Xr Imaging Referral ID Status Reason Start Date Expiration Date Visits Requested Visits Authorized [id number] Pending Review Auto-Generat ed Referral 05/14/2022 06/13/2023 1 1 T [facility] for referral (narrative)* Outpatient Procedure (Routine) - Pending Review Specialty Diagnoses / Procedures Referred By Naveen herrera Referred To Contact [facility] Diagnoses Peripheral vascular disease (HCC) Procedures PVR ANK PRESS SHANNON [facility] NON-INVAS PHYSIOLOGIC STD EXTREMITY ART 2 LEVEL Rene Zapata MD [address] [place] [address] [address] Referral ID Status Reason Start Date Expiration Date Visits Requested Visits Authorized [id number] Pending Review Auto-Generat ed Referral 09/06/2023 09/05/2024 1 1 [facility] for referral (narrative)* Outpatient Procedure (Routine) - Pending Review Specialty Diagnoses / Procedures Referred By Contac t Referred To Contact [facility] Diagnoses Encounter for screening for cardiovascular disorders Procedures ECHO ECHO TTHRC R-T 2D W/WOM-MODE COMPL SPEC&COLR D Rene Zapata MD [address] [place] [address] [place] [id number] Referral ID Status Reason Start Date Expiration Date Visits Requested Visits Authorized [id number] Pending Review Auto-Generat ed Referral 09/06/2023 09/05/2024 1 1 * Diagnostic Procedure Only (Routine) - Pending Review Specialty Diagnoses / Procedures Referred By Contbirgit t Referred To Contact [facility] Diagnoses Encounter for screening for cardiovascular disorders Procedures NM CARDIAC PERF STRESS/PHARM MYOCARDIAL SPECT MULTIPLE STUDIES Rene Zapata MD [address] [place] [address] [facility] [address] [place] [address] Referral ID Status Reason Start Date Expiration Date Visits Requested Visits Authorized [id number] Pending Review Auto-Generat ed Referral 09/06/2023 10/05/2024 1 1 [facility] for referral (narrative)* Outpatient Procedure (Routine) - Pending Review Specialty Diagnoses / Procedures Referred By Contac t Referred To Contact [facility] Diagnoses Peripheral arterial disease (HCC) Procedures PVR LEG SHANNON [facility] NON-INVASIVE PHYSIOLOGIC STUDY EXTREMITY 3 Rene Blas MD [address] [place] [address] [facility] [address] [address] Referral ID Status Reason Start Date Expiration Date Visits Requested Visits Authorized [id number] Pending Review Auto-Generat ed Referral 06/13/2024 12/11/2024 1 1 [facility] for referral (narrative)* Outpatient Procedure (Routine) - Authorized Specialty Diagnoses / Procedures Referred By Contac t Referred To Contact [facility] Diagnoses Mass of colon Procedures COLONOSCOPY DIAGNOSTIC COLONOSCOPY FLX DX W/COLLJ SPEC WHEN Josemanuel Wharton MD [address] [place] [address] [address] [address] Referral ID Status Reason Start Date Expiration Date Visits Requested Visits Authorized [id number] Authorized Auto-Generat ed Referral 02/26/2024 02/25/2025 1 1 [facility] for referral (narrative)* Outpatient Procedure (Routine) - Authorized Specialty Diagnoses / Procedures Referred By Contac t Referred To Contact [facility] Diagnoses Peripheral arterial disease (HCC) Procedures PVR ANK PRESS SHANNON [facility] NON-INVAS PHYSIOLOGIC STD EXTREMITY ART 2 LEVEL Darryl Mallory DO [address] [place] [address] [facility] [address] [address] Referral ID Status Reason Start Date Expiration Date Visits Requested Visits Authorized [id number] Authorized Auto-Generat ed Referral 06/30/2024 06/30/2025 1 1 [facility] for referral (narrative)No reason for referral information availableWKettering Memorial Hospital Work Phone: Reason for visit Narrative* Diagnostic Procedure Only (Routine) - Closed Specialty Diagnoses / Procedures Referred By Contac t Referred To Contact XR IMAGING Diagnoses Chronic idiopathic constipation Altered bowel habits Procedures XR ABDOMEN 1V SUPINE RADIOLOGIC EXAM ABDOMEN 1 VIEW Colton Mendez MD [address] [place] [address] Xr Imaging Referral ID Status Reason Start Date Expiration Date V isits Requested Visits Authorized [id number] Closed Auto-Generate d Referral 04/26/2022 05/26/2023 1 1 [facility] for visit Narrative* Diagnostic Procedure Only (Routine) - Closed Specialty Diagnoses / Procedures Referred By Contac t Referred To Contact XR IMAGING Diagnoses Chronic idiopathic constipation Altered bowel habits Procedures XR ABDOMEN 1V SUPINE RADIOLOGIC EXAM ABDOMEN 1 VIEW Colton Mendez MD [address] [facility] [place] [address] Xr Imaging Referral ID Status Reason Start Date Expiration Date V isits Requested Visits Authorized [id number] Closed Auto-Generate d Referral 05/03/2022 05/26/2023 1 1 [facility] for visit Narrative* Outpatient Procedure (Routine) - Closed Specialty Diagnoses / Procedures Referred By Contac t Referred To Contact [facility] Diagnoses Mass of colon Procedures COLONOSCOPY DIAGNOSTIC COLONOSCOPY FLX DX W/COLLJ SPEC WHEN Josemanuel Wharton MD [address] [place] [address] [facility] [address] [place] [address] Referral ID Status Reason Start Date Expiration Date V isits Requested Visits Authorized [id number] Closed Auto-Generate d Referral 02/26/2024 02/25/2025 1 1 [facility] Advance Directives No Advanced Directives Records FoundDocuments on File Type Date Recorded 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 Advance Directive(s) 08/05/2018 11:34 AM Advance Directive(s) 12/08/2015 12:19 PM Advance Directive(s) 12/05/2015 11:47 AM Advance Directive(s) 12/05/2015 12:35 PM Advance Directive(s) 11/14/2015 10:54 AM Documents on File Type Date Recorded 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 Advance Directive(s) 08/05/2018 11:34 AM Advance Directive(s) 12/08/2015 12:19 PM Advance Directive(s) 12/05/2015 11:47 AM Advance Directive(s) 12/05/2015 12:35 PM Advance Directive(s) 11/14/2015 10:54 AM Advance Directive Response Recorded Date/ Time Advance Directives Yes March 28 4:57am Living Will No November 01 1:09am Power of Commercial Property Manager No November 01, 2021 1:09am Advance Directive Response Recorded Date/ Time Name of Medical Power of Commercial Property Manager ADY CECILIO March 07, 2022 5:52pm Name of Medical Power of Commercial Property Manager Ady Ames w diana March 12, 2022 9:36am Advance Directives Yes March 28 4:57am Living Will Yes March 12, 2022 9 :36am Power of Commercial Property Manager Yes March 12, 2022 9:36am Advance Directive Response Recorded Date/ Time Name of Medical Power of Commercial Property Manager ADY AMES March 07, 2022 5:52pm Name of Medical Power of Commercial Property Manager Ady Ames w diana March 12, 2022 9:36am Name of Medical Power of Commercial Property Manager ADY CECILIO March 29, 2022 3:39am Advance Directives Yes March 28 4:57am Living Will Yes March 29, 2022 3:39am Power of Commercial Property Manager Yes March 29 3:39am Advance Directive Response Recorded Date/ Time Name of Medical Power of Commercial Property Manager ADY AMES March 07, 2022 5:52pm Name of Medical Power of Commercial Property Manager Ady Ames w diana March 12, 2022 9:36am Name of Medical Power of Commercial Property Manager ADY CECIILO March 29, 2022 3:39am Name of Medical Power of Commercial Property Manager ADY- April 22, 2022 8:18am Advance Directives Yes March 28 4:57am Living Will Yes April 22, 2022 8:18am Power of Commercial Property Manager Yes April 22 8:18am Documents on File Type Date Recorded 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 Advance Directive(s) 12/08/2015 12:19 PM Advance Directive Response Recorded Date/ Time Name of Medical Power of Commercial Property Manager ADY AMES March 07, 2022 5:52pm Name of Medical Power of Commercial Property Manager Ady Ames, herberth diana March 12, 2022 9:36am Name of Medical Power of Commercial Property Manager ADY AMES March 29, 2022 3:39am Name of Medical Power of Commercial Property Manager ADY- April 22, 2022 8:18am Advance Directives Yes March 28 4:57am Living Will No May 15, 2022 6:49am Power of Commercial Property Manager No May 15 6:49am Advance Directive Response Recorded Date/ Time Name of Medical Power of Commercial Property Manager ADY AMES March 07, 2022 5:52pm Name of Medical Power of Commercial Property Manager Ady Ames, herberth diana March 12, 2022 9:36am Name of Medical Power of Commercial Property Manager ADY AMES March 29, 2022 3:39am Name of Medical Power of Commercial Property Manager ADY- April 22, 2022 8:18am Name of Medical Power of Commercial Property Manager ADY AMES-TYSHAWN FE May 15, 2022 11:12am Advance Directives Yes March 28 4:57am Living Will Yes May 15, 2022 11:12am Power of Commercial Property Manager Yes May 15 11:12am Advance Directive Response Recorded Date/ Time Name of Medical Power of Commercial Property Manager ADY AMES March 07, 2022 5:52pm Name of Medical Power of Commercial Property Manager Ady Ames, herberth diana March 12, 2022 9:36am Name of Medical Power of Commercial Property Manager ADY AMES March 29, 2022 3:39am Name of Medical Power of Commercial Property Manager ADY- April 22, 2022 8:18am Name of Medical Power of Commercial Property Manager ADY AMES-WI FE May 15, 2022 11:12am Name of Medical Power of Commercial Property Manager ady May 22, 2022 8:58am Advance Directives Yes March 28 14 4:57am Living Will Yes May 22 8:58am Power of Commercial Property Manager Yes May 22 8:58am Documents on File Type Date Recorded 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 Advance Directive(s) 12/08/2015 12:19 PM Advance Directive Response Recorded Date/ Time Name of Medical Power of Commercial Property Manager ADY AMES March 07, 2022 5:52pm Name of Medical Power of Commercial Property Manager Ady Ames, herberth daina March 12, 2022 9:36am Name of Medical Power of Commercial Property Manager ADY AMES March 29, 2022 3:39am Name of Medical Power of Commercial Property Manager ADY- April 22, 2022 8:18am Name of Medical Power of Commercial Property Manager ADY AMES-TYSHAWN FE May 15, 2022 11:12am Name of Medical Power of Commercial Property Manager ady May 22, 2022 8:58am Name of Medical Power of Commercial Property Manager ? May 28, 2022 11:58am Advance Directives Yes March 28 4:57am Living Will Yes May 28 11:58am Power of Commercial Property Manager Yes May 28 11:58am Advance Directive Response Recorded Date/ Time Name of Medical Power of Commercial Property Manager ADY AMES March 07, 2022 5:52pm Name of Medical Power of Commercial Property Manager Ady Ames, w diana March 12, 2022 9:36am Name of Medical Power of Commercial Property Manager ADY AMES March 29, 2022 3:39am Name of Medical Power of Commercial Property Manager ADY- April 22, 2022 8:18am Name of Medical Power of Commercial Property Manager ADY MORENO FE May 15, 2022 11:12am Name of Medical Power of Commercial Property Manager ady May 22, 2022 8:58am Name of Medical Power of Commercial Property Manager ? May 28, 2022 11:58am Name of Medical Power of Commercial Property Manager ady- June 03, 2022 3:19am Name of Medical Power of Commercial Property Manager Ady ames June 08, 2022 10:00pm Advance Directives Yes March 28 4:57am Living Will Yes June 08 10:00pm Power of Commercial Property Manager Yes June 08, 2022 10:00pm Advance Directive Response Recorded Date/ Time Name of Medical Power of Commercial Property Manager ADY AMES March 07, 2022 5:52pm Name of Medical Power of Commercial Property Manager Ady Medranomely w diana March 12, 2022 9:36am Name of Medical Power of Commercial Property Manager ADYJUAN MANUEL AMES March 29, 2022 3:39am Name of Medical Power of Commercial Property Manager ADY- April 22, 2022 8:18am Name of Medical Power of Commercial Property Manager ADY CECILIO-WI FE May 15, 2022 11:12am Name of Medical Power of Commercial Property Manager ady May 22, 2022 8:58am Name of Medical Power of Commercial Property Manager ? May 28, 2022 11:58am Name of Medical Power of Commercial Property Manager ady- June 03, 2022 3:19am Advance Directives Yes March 28 4:57am Living Will Yes June 03 3:19am Power of Commercial Property Manager Yes June 03 022 3:19am Advance Directive Response Recorded Date/ Time Name of Medical Power of Commercial Property Manager ADY AMES March 07, 2022 5:52pm Name of Medical Power of Commercial Property Manager Ady herberth Ames diana March 12, 2022 9:36am Name of Medical Power of Commercial Property Manager ADY AMES March 29, 2022 3:39am Name of Medical Power of Commercial Property Manager ADY- April 22, 2022 8:18am Name of Medical Power of Commercial Property Manager ADY AMES-TYSHAWN FE May 15, 2022 11:12am Name of Medical Power of Commercial Property Manager ady May 22, 2022 8:58am Name of Medical Power of Commercial Property Manager ? May 28, 2022 11:58am Name of Medical Power of Commercial Property Manager ady- June 03, 2022 3:19am Name of Medical Power of Commercial Property Manager Ady ames June 09, 2022 4:07am Advance Directives Yes March 28 4:57am Living Will Yes June 09 022 4:07am Power of Commercial Property Manager Yes June 09, 2022 4:07am Advance Directive Response Recorded Date/ Time Name of Medical Power of Commercial Property Manager Ady Ames, w diana March 12, 2022 9:36am Name of Medical Power of Commercial Property Manager ADY AMES March 29, 2022 3:39am Name of Medical Power of Commercial Property Manager ADY- April 22, 2022 8:18am Name of Medical Power of Commercial Property Manager ADY MORENO FE May 15, 2022 11:12am Name of Medical Power of Commercial Property Manager ady May 22, 2022 8:58am Name of Medical Power of Commercial Property Manager ? May 28, 2022 11:58am Name of Medical Power of Commercial Property Manager ady- June 03, 2022 3:19am Name of Medical Power of Commercial Property Manager Ady ames June 09, 2022 4:07am Advance Directives Yes March 28 4:57am Living Will Yes June 09 4:07am Power of Commercial Property Manager Yes June 09, 2022 4:07am Advance Directive Response Recorded Date/ Time Name of Medical Power of Commercial Property Manager ADY- April 22, 2022 8:18am Name of Medical Power of Commercial Property Manager ADY MORENO FE May 15, 2022 11:12am Name of Medical Power of Commercial Property Manager ady May 22, 2022 8:58am Name of Medical Power of Commercial Property Manager ? May 28, 2022 11:58am Name of Medical Power of Commercial Property Manager ady- June 03, 2022 3:19am Name of Medical Power of Commercial Property Manager Ady ames June 09, 2022 4:07am Advance Directives Yes March 28 4:57am Living Will Yes June 09 4:07am Power of Commercial Property Manager Yes June 09, 2022 4:07am Advance Directive Response Recorded Date/ Time Advance Directives Yes March 28 3:57am Living Will Yes June 09 3:07am Power of Commercial Property Manager Yes June 09, 2022 3:07am Advance Directive Response Recorded Date/ Time Advance Directives Yes December 18, 2 023 11:07am Living Will Yes December 18, 2022 11:07am Power of Commercial Property Manager Yes December 18 11:07am Advance Directive Response Recorded Date/ Time Advance Directives Yes December 18 023 10:07am Living Will Yes December 18, 2022 10:07am Power of Commercial Property Manager Yes December 18 10:07am Advance Directive Response Recorded Date/ Time Name of Medical Power of Commercial Property Manager September 12, 2023 1:26am Advance Directives Yes December 18, 2 023 10:07am Living Will No September 12 1:26am Power of Commercial Property Manager Yes September 12, 2023 1:26am Advance Directive Response Recorded Date/ Time Name of Medical Power of Commercial Property Manager September 12, 2023 1:26am Advance Directives Yes December 18, 2 023 10:07am Living Will No September 12 9:18am Power of Commercial Property Manager No September 12, 2023 9:18am Documents on File Type Date Recorded 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 Advance Directive(s) 11/22/2023 7:29 AM Advance Directive(s) 12/08/2015 12:19 PM Documents on File Type Date Recorded 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 Advance Directive(s) 11/22/2023 7:29 AM Advance Directive(s) 12/08/2015 12:19 PM Advance Directive Response Recorded Date/ Time Name of Medical Power of Commercial Property Manager September 12, 2023 2:26am Advance Directives Yes December 18, 2 023 11:07am Living Will No December 02 024 11:44am Power of Commercial Property Manager No December 02, 2023 11:44am Advance Directive Response Recorded Date/ Time Name of Medical Power of Commercial Property Manager September 12, 2023 2:26am Name of Medical Power of Commercial Property Manager ady December 25, 2023 2:02am Advance Directives Yes December 18, 2 023 11:07am Living Will Yes December 25, 2023 2:02am Power of Commercial Property Manager Yes December 24 2:02am Advance Directive Response Recorded Date/ Time Name of Medical Power of Commercial Property Manager ady December 25, 2023 2:02am Advance Directives Yes December 18, 2 023 11:07am Living Will Yes December 25, 2023 2:02am Power of Commercial Property Manager Yes December 24 2:02am Advance Directive Response Recorded Date/ Time Name of Medical Power of Commercial Property Manager ady December 25, 2023 2:02am Advance Directives Yes December 18, 2 023 11:07am Living Will No January 26, 2024 1:15pm Power of Commercial Property Manager No January 25 1:15pm Advance Directive Response Recorded Date/ Time Name of Medical Power of Commercial Property Manager ady December 25, 2023 2:02am Name of Medical Power of Commercial Property Manager ady ames January 26, 2024 5:33pm Advance Directives Yes December 18, 2 023 11:07am Living Will Yes January 26, 2024 5:33pm Power of Commercial Property Manager Yes January 25 5:33pm Advance Directive Response Recorded Date/ Time Name of Medical Power of Commercial Property Manager ady December 25, 2023 2:02am Name of Medical Power of Commercial Property Manager ady ames January 26, 2024 5:33pm Name of Medical Power of Commercial Property Manager ADY AMES February 11, 2024 10:40am Advance Directives Yes December 18, 023 11:07am Living Will Yes February 11, 2024 10 :40am Power of Commercial Property Manager Yes February 11, 2024 10:40am Advance Directive Response Recorded Date/ Time Living Will Yes February 11, 2024 10 :40am Power of Commercial Property Manager Yes February 11, 2024 10:40am Living Will Yes May 01, 2024 11:32am Power of Commercial Property Manager Yes May 01 11:32am Living Will Yes December 14, 2024 12:33pm Power of Commercial Property Manager Yes December 14 12:33pm Name of Medical Power of Commercial Property Manager ADY December 14, 2024 12:33pm Advance Directives Yes June 1:05pm Advance Directive Response Recorded Date/ Time Living Will Yes February 11, 2024 10 :40am Do you have a Healthcare Power of Commercial Property Manager? Yes February 11, 2024 10:40am Living Will Yes May 01, 2024 11:32am Do you have a Healthcare Power of Commercial Property Manager? Yes May 01, 2024 11:32am Living Will Yes December 14, 2024 12:33pm Do you have a Healthcare Power of Commercial Property Manager? Yes December 14, 2024 12:33pm Name of Medical Power of Commercial Property Manager ADY December 14, 2024 12:33pm Advance Directives Yes June 1:05pm Advance Directive Response Recorded Date/ Time Living Will Yes February 11, 2024 10 :40am Do you have a Healthcare Power of Commercial Property Manager? Yes February 11, 2024 10:40am Living Will Yes May 01, 2024 11:32am Do you have a Healthcare Power of Commercial Property Manager? Yes May 01, 2024 11:32am Living Will Yes December 14, 2024 12:33pm Do you have a Healthcare Power of Commercial Property Manager? Yes December 14, 2024 12:33pm Name of Medical Power of Commercial Property Manager ADY December 14, 2024 12:33pm Do you have a Healthcare Power of Commercial Property Manager? Yes January 29, 2025 2:22pm Name of Medical Power of Commercial Property Manager ADY January 29, 2025 2:22pm Advance Directives Yes June 1:05pm Advance Directive Response Recorded Date/ Time Living Will Yes May 01, 2024 11:32am Do you have a Healthcare Power of Commercial Property Manager? Yes May 01, 2024 11:32am Living Will Yes December 14, 2024 12:33pm Do you have a Healthcare Power of Commercial Property Manager? Yes December 14, 2024 12:33pm Name of Medical Power of Commercial Property Manager ADY December 14, 2024 12:33pm Do you have a Healthcare Power of Commercial Property Manager? Yes January 29, 2025 2:22pm Name of Medical Power of Commercial Property Manager ADY January 29, 2025 2:22pm Advance Directives Yes June 1:05pm Advance Directive Response Recorded Date/ Time Living Will Yes May 01, 2024 11:32am Do you have a Healthcare Power of Commercial Property Manager? Yes May 01, 2024 11:32am Living Will Yes December 14, 2024 12:33pm Do you have a Healthcare Power of Commercial Property Manager? Yes December 14, 2024 12:33pm Name of Medical Power of Commercial Property Manager ADY December 14, 2024 12:33pm Do you have a Healthcare Power of Commercial Property Manager? Yes January 29, 2025 2:22pm Name of Medical Power of Commercial Property Manager ADY January 29, 2025 2:22pm Do you have a Healthcare Power of Commercial Property Manager? Yes February 15, 2025 3:04am Advance Directives Yes June 1:05pm Advance Directive Response Recorded Date/ Time Living Will Yes May 01, 2024 11:32am Do you have a Healthcare Power of Commercial Property Manager? Yes May 01, 2024 11:32am Living Will Yes December 14, 2024 12:33pm Do you have a Healthcare Power of Commercial Property Manager? Yes December 14, 2024 12:33pm Name of Medical Power of Commercial Property Manager ADY December 14, 2024 12:33pm Do you have a Healthcare Power of Commercial Property Manager? Yes January 29, 2025 2:22pm Name of Medical Power of Commercial Property Manager ADY January 29, 2025 2:22pm Do you have a Healthcare Power of Commercial Property Manager? Yes February 15, 2025 5:13am Name of Medical Power of Commercial Property Manager Ady Ames February 15, 2025 5:13am Advance Directives Yes June 1:05pm Advance Directive Response Recorded Date/ Time Living Will Yes May 01, 2024 11:32am Do you have a Healthcare Power of Commercial Property Manager? Yes May 01, 2024 11:32am Living Will Yes December 14, 2024 12:33pm Do you have a Healthcare Power of Commercial Property Manager? Yes December 14, 2024 12:33pm Name of Medical Power of Commercial Property Manager ADY December 14, 2024 12:33pm Do you have a Healthcare Power of Commercial Property Manager? No February 19, 2025 3:56pm Do you have a Healthcare Power of Commercial Property Manager? Yes January 29, 2025 2:22pm Name of Medical Power of Commercial Property Manager ADY January 29, 2025 2:22pm Do you have a Healthcare Power of Commercial Property Manager? Yes February 15, 2025 5:13am Name of Medical Power of Commercial Property Manager Ady Ames February 15, 2025 5:13am Advance Directives Yes June 1:05pm Advance Directive Response Recorded Date/ Time Living Will Yes May 01, 2024 11:32am Do you have a Healthcare Power of Commercial Property Manager? Yes May 01, 2024 11:32am Living Will Yes December 14, 2024 12:33pm Do you have a Healthcare Power of Commercial Property Manager? Yes December 14, 2024 12:33pm Name of Medical Power of Commercial Property Manager ADY December 14, 2024 12:33pm Do you have a Healthcare Power of Commercial Property Manager? No February 19, 2025 8:33pm Do you have a Healthcare Power of Commercial Property Manager? Yes January 29, 2025 2:22pm Name of Medical Power of Commercial Property Manager ADY January 29, 2025 2:22pm Do you have a Healthcare Power of Commercial Property Manager? Yes February 15, 2025 5:13am Name of Medical Power of Commercial Property Manager Ady Ames February 15, 2025 5:13am Advance Directives Yes June 1:05pm Advance Directive Response Recorded Date/ Time Living Will Yes May 01, 2024 11:32am Do you have a Healthcare Power of Commercial Property Manager? Yes May 01, 2024 11:32am Living Will Yes December 14, 2024 12:33pm Do you have a Healthcare Power of Commercial Property Manager? Yes December 14, 2024 12:33pm Name of Medical Power of Commercial Property Manager ADY December 14, 2024 12:33pm Do you have a Healthcare Power of Commercial Property Manager? No February 19, 2025 8:33pm Do you have a Healthcare Power of Commercial Property Manager? Yes March 04, 2025 12:47pm Do you have a Healthcare Power of Commercial Property Manager? Yes January 29, 2025 2:22pm Name of Medical Power of Commercial Property Manager ADY January 29, 2025 2:22pm Do you have a Healthcare Power of Commercial Property Manager? Yes February 15, 2025 5:13am Name of Medical Power of Commercial Property Manager Ady Ames February 15, 2025 5:13am Advance Directives Yes June 1:05pm Advance Directive Response Recorded Date/ Time Living Will Yes May 01, 2024 11:32am Do you have a Healthcare Power of Commercial Property Manager? Yes May 01, 2024 11:32am Living Will Yes December 14, 2024 12:33pm Do you have a Healthcare Power of Commercial Property Manager? Yes December 14, 2024 12:33pm Name of Medical Power of Commercial Property Manager ADY December 14, 2024 12:33pm Do you have a Healthcare Power of Commercial Property Manager? No February 19, 2025 8:33pm Do you have a Healthcare Power of Commercial Property Manager? Yes March 04, 2025 6:41pm Do you have a Healthcare Power of Commercial Property Manager? Yes January 29, 2025 2:22pm Name of Medical Power of Commercial Property Manager ADY January 29, 2025 2:22pm Do you have a Healthcare Power of Commercial Property Manager? Yes February 15, 2025 5:13am Name of Medical Power of Commercial Property Manager Ady Ames February 15, 2025 5:13am Advance Directives Yes June 1:05pm Advance Directive Response Recorded Date/ Time Living Will Yes May 01, 2024 11:32am Do you have a Healthcare Power of Commercial Property Manager? Yes May 01, 2024 11:32am Advance Directives Yes March 15 12:04pm Living Will Yes December 14, 2024 12:33pm Do you have a Healthcare Power of Commercial Property Manager? Yes December 14, 2024 12:33pm Name of Medical Power of Commercial Property Manager ADY December 14, 2024 12:33pm Do you have a Healthcare Power of Commercial Property Manager? No February 19, 2025 8:33pm Do you have a Healthcare Power of Commercial Property Manager? Yes March 04, 2025 6:41pm Do you have a Healthcare Power of Commercial Property Manager? Yes January 29, 2025 2:22pm Name of Medical Power of Commercial Property Manager ADY January 29, 2025 2:22pm Do you have a Healthcare Power of Commercial Property Manager? Yes February 15, 2025 5:13am Name of Medical Power of Commercial Property Manager Ady Ames February 15, 2025 5:13am Advance Directive Response Recorded Date/ Time Advance Directives Yes March 15 12:04pm Do you have a Healthcare Power of Commercial Property Manager? No February 19, 2025 8:33pm Do you have a Healthcare Power of Commercial Property Manager? Yes March 04, 2025 6:41pm Do you have a Healthcare Power of Commercial Property Manager? Yes January 29, 2025 2:22pm Name of Medical Power of Commercial Property Manager ADY January 29, 2025 2:22pm Do you have a Healthcare Power of Commercial Property Manager? Yes February 15, 2025 5:13am Name of Medical Power of Commercial Property Manager Ady Ames February 15, 2025 5:13am Advance Directive Response Recorded Date/ Time Advance Directives Yes March 15 12:04pm Do you have a Healthcare Power of Commercial Property Manager? No February 19, 2025 8:33pm Do you have a Healthcare Power of Commercial Property Manager? Yes March 04, 2025 6:41pm Do you have a Healthcare Power of Commercial Property Manager? Yes February 15, 2025 5:13am Name of Medical Power of Commercial Property Manager Ady Ames February 15, 2025 5:13am Chief Complaint and Reason for Visit Chief Complaint shortness of breath 4 M FU 8 m fu ( rs from 10/05) EORDER 3 WEEK FOLLOW UP CP *IGNACIO* CP *IGNACIO* Urinary tract infection UTI CONCERN/2ND VISIT 6 M FU E ORDER Reason for Visit MARIXA (obstructive sle ep apnea) Restless legs syndrome Chest pain ALMEIDA (dyspnea on exertion) Abdominal aortic aneurysm (AAA) Atherosclerotic heart disease of [place] coronary artery without angina pectoris Essential (primary) hypertension HLD (hyperlipidemia) History of coronary artery stent placement Asthma-COPD overlap syndrome MARIXA (obstructive sleep apnea) Acute cystitis with hematuria Recurrent urinary tract infection ALMEIDA (dyspnea on exertion) Abdominal aortic aneurysm (AAA) Atherosclerotic heart disease of [place] coronary artery without angina pectoris Essential (primary) hypertension HLD (hyperlipidemia) Chief Complaint shortness of breath 4 M FU 8 m fu ( rs from 10/05) EORDER 3 WEEK FOLLOW UP CP *IGNACIO* CP *IGNACIO* Urinary tract infection UTI CONCERN/2ND VISIT 6 M FU E ORDER HEMATURIA Reason for Visit MARIXA (obstructive sle ep apnea) Restless legs syndrome Chest pain ALMEIDA (dyspnea on exertion) Abdominal aortic aneurysm (AAA) Atherosclerotic heart disease of [place] coronary artery without angina pectoris Essential (primary) hypertension HLD (hyperlipidemia) History of coronary artery stent placement Asthma-COPD overlap syndrome MARIXA (obstructive sleep apnea) Acute cystitis with hematuria Recurrent urinary tract infection ALMEIDA (dyspnea on exertion) Abdominal aortic aneurysm (AAA) Atherosclerotic heart disease of [place] coronary artery without angina pectoris Essential (primary) hypertension HLD (hyperlipidemia) Chief Complaint shortness of breath 4 M FU 8 m fu ( rs from 10/05) EORDER 3 WEEK FOLLOW UP CP *IGNACIO* CP *IGNACIO* Urinary tract infection UTI CONCERN/2ND VISIT 6 M FU E ORDER HEMATURIA 4 M FU Reason for Visit MARIXA (obstructive sle ep apnea) Restless legs syndrome Chest pain ALMEIDA (dyspnea on exertion) Abdominal aortic aneurysm (AAA) Atherosclerotic heart disease of [place] coronary artery without angina pectoris Essential (primary) hypertension HLD (hyperlipidemia) History of coronary artery stent placement Asthma-COPD overlap syndrome MARIXA (obstructive sleep apnea) Acute cystitis with hematuria Recurrent urinary tract infection ALMEIDA (dyspnea on exertion) Abdominal aortic aneurysm (AAA) Atherosclerotic heart disease of [place] coronary artery without angina pectoris Essential (primary) hypertension HLD (hyperlipidemia) Asthma-COPD overlap syndrome MARIXA (obstructive sleep apnea) Restless legs syndrome Chief Complaint CP *IGNACIO* CP *IGNACIO* Urinary tract infection UTI CONCERN/2ND VISIT 6 M FU E ORDER HEMATURIA 4 M FU CYSTO, TURP, OLYMPUS SYST TURP OLYMPICS Reason for Visit Urinary tract infect ion Acute cystitis with hematuria Recurrent urinary tract infection ALMEIDA (dyspnea on exertion) Abdominal aortic aneurysm (AAA) Atherosclerotic heart disease of [place] coronary artery without angina pectoris Essential (primary) hypertension HLD (hyperlipidemia) Asthma-COPD overlap syndrome MARIXA (obstructive sleep apnea) Restless legs syndrome Abdominal aortic aneurysm Allergic rhinitis BPH (benign prostatic hyperplasia) Coronary artery disease Debility Diabetes mellitus Gastroesophageal reflux disease History of transurethral resection of prostate Hyperlipidemia Kidney stone Obstructive sleep apnea Urinary retention Chronic obstructive pulmonary disease Hypertension Chief Complaint CP *IGNACIO* CP *IGNACIO* Urinary tract infection UTI CONCERN/2ND VISIT 6 M FU E ORDER HEMATURIA 4 M FU CYSTO, TURP, OLYMPUS SYST TURP OLYMPICS COPD, DEBILITY. RX HERE CONSTIPATION Reason for Visit Urinary tract infect ion Acute cystitis with hematuria Recurrent urinary tract infection ALMEIDA (dyspnea on exertion) Abdominal aortic aneurysm (AAA) Atherosclerotic heart disease of [place] coronary artery without angina pectoris Essential (primary) hypertension HLD (hyperlipidemia) Asthma-COPD overlap syndrome MARIXA (obstructive sleep apnea) Restless legs syndrome Abdominal aortic aneurysm Allergic rhinitis BPH (benign prostatic hyperplasia) Coronary artery disease Debility Diabetes mellitus Gastroesophageal reflux disease History of transurethral resection of prostate Hyperlipidemia Kidney stone Obstructive sleep apnea Urinary retention Chronic obstructive pulmonary disease Hypertension Chief Complaint Urinary tract infect ion UTI CONCERN/2ND VISIT 6 M FU E ORDER HEMATURIA 4 M FU CYSTO, TURP, OLYMPUS SYST TURP [employer]LYMPICS CONSTIPATION COPD, DEBILITY. RX HERE Reason for Visit Urinary tract infect ion Acute cystitis with hematuria Recurrent urinary tract infection ALMEIDA (dyspnea on exertion) Abdominal aortic aneurysm (AAA) Atherosclerotic heart disease of [place] coronary artery without angina pectoris Essential (primary) hypertension HLD (hyperlipidemia) Asthma-COPD overlap syndrome MARIXA (obstructive sleep apnea) Restless legs syndrome Abdominal aortic aneurysm Allergic rhinitis Coronary artery disease Debility Diabetes mellitus Gastroesophageal reflux disease History of transurethral resection of prostate Hyperlipidemia Obstructive sleep apnea Chronic obstructive pulmonary disease Hypertension BPH (benign prostatic hyperplasia) Kidney stone Urinary retention Chief Complaint Urinary tract infect ion UTI CONCERN/2ND VISIT 6 M FU E ORDER HEMATURIA 4 M FU CYSTO, TURP, OLYMPUS SYST TURP [employer]MP[employer] CONSTIPATION COPD, DEBILITY. RX HERE unable to urinate Reason for Visit Urinary tract infect ion Acute cystitis with hematuria Recurrent urinary tract infection ALMEIDA (dyspnea on exertion) Abdominal aortic aneurysm (AAA) Atherosclerotic heart disease of [place] coronary artery without angina pectoris Essential (primary) hypertension HLD (hyperlipidemia) Asthma-COPD overlap syndrome MARIXA (obstructive sleep apnea) Restless legs syndrome Abdominal aortic aneurysm Allergic rhinitis Coronary artery disease Debility Diabetes mellitus Gastroesophageal reflux disease History of transurethral resection of prostate Hyperlipidemia Obstructive sleep apnea Chronic obstructive pulmonary disease Hypertension BPH (benign prostatic hyperplasia) Kidney stone Urinary retention Chief Complaint UTI CONCERN/2ND VISI T 6 M FU E ORDER HEMATURIA 4 M FU CYSTO, TURP, [facility] to [facility] 3 M FU COPD, DEBILITY. RX HERE DECOMPENSATED HFPEF DECOMPENSATED HFPEF Reason for Visit Acute cystitis with hematuria Recurrent urinary tract infection ALMEIDA (dyspnea on exertion) Abdominal aortic aneurysm (AAA) Atherosclerotic heart disease of [place] coronary artery without angina pectoris Essential (primary) hypertension HLD (hyperlipidemia) Asthma-COPD overlap syndrome MARIXA (obstructive sleep apnea) Restless legs syndrome Abdominal aortic aneurysm Allergic rhinitis Coronary artery disease Debility Diabetes mellitus Gastroesophageal reflux disease History of transurethral resection of prostate Hyperlipidemia Obstructive sleep apnea Chronic obstructive pulmonary disease Hypertension BPH (benign prostatic hyperplasia) Kidney stone Urinary retention ALME[place] (dyspnea on exertion) HLD (hyperlipidemia) Abdominal aortic aneurysm (AAA) Atherosclerotic heart disease of [place] coronary artery without angina pectoris Essential (primary) hypertension Acute respiratory failure with hypoxia Elevated brain natriuretic peptide (BNP) level Hypertensive emergency Hypertensive urgency Pulmonary edema Chronic constipation Chief Complaint UTI CONCERN/2ND VISI T 6 M FU E ORDER HEMATURIA 4 M FU CYSTO, TURP, OLYMPUS SYST TURP [facility] CONSTIPATION unable to urinate 3 M FU COPD, DEBILITY. RX HERE DECOMPENSATED HFPEF DECOMPENSATED HFPEF DECOMPENSATED HFPEF Reason for Visit Acute cystitis with hematuria Recurrent urinary tract infection ALMEIDA (dyspnea on exertion) Abdominal aortic aneurysm (AAA) Atherosclerotic heart disease of [place] coronary artery without angina pectoris Essential (primary) hypertension HLD (hyperlipidemia) Asthma-COPD overlap syndrome MARIXA (obstructive sleep apnea) Restless legs syndrome Abdominal aortic aneurysm Allergic rhinitis Coronary artery disease Debility Diabetes mellitus Gastroesophageal reflux disease History of transurethral resection of prostate Hyperlipidemia Obstructive sleep apnea Chronic obstructive pulmonary disease Hypertension BPH (benign prostatic hyperplasia) Kidney stone Urinary retention ALMEIDA (dyspnea on exertion) HLD (hyperlipidemia) Abdominal aortic aneurysm (AAA) Atherosclerotic heart disease of [place] coronary artery without angina pectoris Essential (primary) hypertension Acute respiratory failure with hypoxia Elevated brain natriuretic peptide (BNP) level Hypertensive emergency Hypertensive urgency Pulmonary edema Chronic constipation Chief Complaint 6 M FU E ORDER HEMATURIA 4 M FU CYSTO, TURP, OLYMPUS SYST TURP [employer] CONSTIPATION unable to urinate 3 M FU COPD, DEBILITY. RX HERE DECOMPENSATED HFPEF DECOMPENSATED HFPEF DECOMPENSATED HFPEF sob Reason for Visit ALMEIDA (dyspnea on exer tion) Abdominal aortic aneurysm (AAA) Atherosclerotic heart disease of [place] coronary artery without angina pectoris Essential (primary) hypertension HLD (hyperlipidemia) Asthma-COPD overlap syndrome MARIXA (obstructive sleep apnea) Restless legs syndrome Abdominal aortic aneurysm Allergic rhinitis Coronary artery disease Debility Diabetes mellitus Gastroesophageal reflux disease History of transurethral resection of prostate Hyperlipidemia Obstructive sleep apnea Chronic obstructive pulmonary disease Hypertension BPH (benign prostatic hyperplasia) Kidney stone Urinary retention ALMEIDA (dyspnea on exertion) HLD (hyperlipidemia) Abdominal aortic aneurysm (AAA) Atherosclerotic heart disease of [place] coronary artery without angina pectoris Essential (primary) hypertension Acute respiratory failure with hypoxia Elevated brain natriuretic peptide (BNP) level Hypertensive emergency Hypertensive urgency Pulmonary edema Chronic constipation Chief Complaint HEMATURIA 4 M FU CYSTO, TURP, OLYMPUS SYST TURP [employer] CONSTIPATION unable to urinate 3 M FU COPD, DEBILITY. RX HERE DECOMPENSATED HFPEF DECOMPENSATED HFPEF DECOMPENSATED HFPEF sob SOB Reason for Visit Asthma-COPD overlap syndrome MARIXA (obstructive sleep apnea) Restless legs syndrome Abdominal aortic aneurysm Allergic rhinitis Coronary artery disease Debility Diabetes mellitus Gastroesophageal reflux disease History of transurethral resection of prostate Hyperlipidemia Obstructive sleep apnea Chronic obstructive pulmonary disease Hypertension BPH (benign prostatic hyperplasia) Kidney stone Urinary retention ALMEIDA (dyspnea on exertion) HLD (hyperlipidemia) Abdominal aortic aneurysm (AAA) Atherosclerotic heart disease of [place] coronary artery without angina pectoris Essential (primary) hypertension Acute respiratory failure with hypoxia Elevated brain natriuretic peptide (BNP) level Hypertensive emergency Pulmonary edema Chief Complaint HEMATURIA 4 M FU CYSTO, TURP, OLYMPUS SYST TURP [employer] CONSTIPATION unable to urinate 3 M FU COPD, DEBILITY. RX HERE DECOMPENSATED HFPEF DECOMPENSATED HFPEF DECOMPENSATED HFPEF sob SOB s/p pcu fu/ bp check CHEST PAIN, ? UA, PNA CHEST PAIN, ? UA, PNA CHEST PAIN / ? UA / PNA CHEST PAIN / ? UA / PNA UNSTABLE ANGINA, PNA CHEST PAIN / ? UA / PNA CHEST PAIN / ? UA / PNA CHEST PAIN / ? UA / PNA CHEST PAIN / ? UA / PNA COPD EXACERBATION Reason for Visit Asthma-COPD overlap syndrome MARIXA (obstructive sleep apnea) Restless legs syndrome Abdominal aortic aneurysm Allergic rhinitis Debility Diabetes mellitus Gastroesophageal reflux disease History of transurethral resection of prostate Hyperlipidemia Obstructive sleep apnea Chronic obstructive pulmonary disease Hypertension BPH (benign prostatic hyperplasia) Kidney stone Urinary retention ALMEIDA (dyspnea on exertion) HLD (hyperlipidemia) Abdominal aortic aneurysm (AAA) Essential (primary) hypertension Acute respiratory failure with hypoxia Elevated brain natriuretic peptide (BNP) level Hypertensive emergency Pulmonary edema ALMEIDA (dyspnea on exertion) Elevated blood pressure reading HLD (hyperlipidemia) Lightheadedness Abdominal aortic aneurysm (AAA) Essential (primary) hypertension Acute electrocardiogram changes Chest pain ALMEIDA (dyspnea on exertion) Pneumonia Unstable angina Hypoxemia Acute exacerbation of chronic obstructive pulmonary disease Chief Complaint HEMATURIA 4 M FU CYSTO, TURP, OLYMPUS SYST TURP [employer] CONSTIPATION unable to urinate 3 M FU COPD, DEBILITY. RX HERE DECOMPENSATED HFPEF DECOMPENSATED HFPEF DECOMPENSATED HFPEF sob SOB s/p pcu fu/ bp check CHEST PAIN, ? UA, PNA Reason for Visit Asthma-COPD overlap syndrome MARIXA (obstructive sleep apnea) Restless legs syndrome Abdominal aortic aneurysm Allergic rhinitis Coronary artery disease Debility Diabetes mellitus Gastroesophageal reflux disease History of transurethral resection of prostate Hyperlipidemia Obstructive sleep apnea Chronic obstructive pulmonary disease Hypertension BPH (benign prostatic hyperplasia) Kidney stone Urinary retention ALMEIDA (dyspnea on exertion) HLD (hyperlipidemia) Abdominal aortic aneurysm (AAA) Atherosclerotic heart disease of [place] coronary artery without angina pectoris Essential (primary) hypertension Acute respiratory failure with hypoxia Elevated brain natriuretic peptide (BNP) level Hypertensive emergency Pulmonary edema ALMEIDA (dyspnea on exertion) Elevated blood pressure reading HLD (hyperlipidemia) Lightheadedness Abdominal aortic aneurysm (AAA) Atherosclerotic heart disease of [place] coronary artery without angina pectoris Essential (primary) hypertension Acute electrocardiogram changes Coronary artery disease ALMEIDA (dyspnea on exertion) Pneumonia Unstable angina Chief Complaint HEMATURIA 4 M FU CYSTO, TURP, OLYMPUS SYST TURP [employer] CONSTIPATION unable to urinate 3 M FU COPD, DEBILITY. RX HERE DECOMPENSATED HFPEF DECOMPENSATED HFPEF DECOMPENSATED HFPEF sob SOB s/p pcu fu/ bp check CHEST PAIN, ? UA, PNA CHEST PAIN, ? UA, PNA CHEST PAIN / ? UA / PNA CHEST PAIN / ? UA / PNA UNSTABLE ANGINA, PNA CHEST PAIN / ? UA / PNA CHEST PAIN / ? UA / PNA CHEST PAIN / ? UA / PNA CHEST PAIN / ? UA / PNA Reason for Visit Asthma-COPD overlap syndrome MARIXA (obstructive sleep apnea) Restless legs syndrome Abdominal aortic aneurysm Allergic rhinitis Coronary artery disease Debility Diabetes mellitus Gastroesophageal reflux disease History of transurethral resection of prostate Hyperlipidemia Obstructive sleep apnea Chronic obstructive pulmonary disease Hypertension BPH (benign prostatic hyperplasia) Kidney stone Urinary retention ALMEIDA (dyspnea on exertion) HLD (hyperlipidemia) Abdominal aortic aneurysm (AAA) Atherosclerotic heart disease of [place] coronary artery without angina pectoris Essential (primary) hypertension Acute respiratory failure with hypoxia Elevated brain natriuretic peptide (BNP) level Hypertensive emergency Pulmonary edema ALMEIDA (dyspnea on exertion) Elevated blood pressure reading HLD (hyperlipidemia) Lightheadedness Abdominal aortic aneurysm (AAA) Atherosclerotic heart disease of [place] coronary artery without angina pectoris Essential (primary) hypertension Acute electrocardiogram changes Anemia Chest pain Colon polyp Coronary artery disease ALMEIDA (dyspnea on exertion) Pneumonia Unstable angina Atherosclerotic heart disease of [place] coronary artery without angina pectoris Chief Complaint 4 M FU CYSTO, TURP, OLYMPUS SYST TURP [employer]MP[employer] CONSTIPATION unable to urinate 3 M FU COPD, DEBILITY. RX HERE DECOMPENSATED HFPEF DECOMPENSATED HFPEF DECOMPENSATED HFPEF sob SOB s/p pcu fu/ bp check CHEST PAIN, ? UA, PNA CHEST PAIN, ? UA, PNA CHEST PAIN / ? UA / PNA CHEST PAIN / ? UA / PNA UNSTABLE ANGINA, PNA CHEST PAIN / ? UA / PNA CHEST PAIN / ? UA / PNA CHEST PAIN / ? UA / PNA CHEST PAIN / ? UA / PNA COPD EXACERBATION COPD EXACERBATION COPD EXACERBATION COPD EXACERBATION COPD EXACERBATION COPD EXACERBATION COPD EXACERBATION COPD EXACERBATION COPD EXACERBATION COPD EXACERBATION Reason for Visit Asthma-COPD overlap syndrome MARIXA (obstructive sleep apnea) Restless legs syndrome Abdominal aortic aneurysm Allergic rhinitis Coronary artery disease Debility Diabetes mellitus Gastroesophageal reflux disease History of transurethral resection of prostate Hyperlipidemia Obstructive sleep apnea Chronic obstructive pulmonary disease Hypertension BPH (benign prostatic hyperplasia) Kidney stone Urinary retention ALMEIDA (dyspnea on exertion) HLD (hyperlipidemia) Abdominal aortic aneurysm (AAA) Essential (primary) hypertension Acute respiratory failure with hypoxia Elevated brain natriuretic peptide (BNP) level Hypertensive emergency Pulmonary edema ALMEIDA (dyspnea on exertion) Elevated blood pressure reading HLD (hyperlipidemia) Lightheadedness Abdominal aortic aneurysm (AAA) Essential (primary) hypertension Anemia Coronary artery disease Acute electrocardiogram changes Chest pain ALMEIDA (dyspnea on exertion) Pneumonia Unstable angina (HFpEF) heart failure with preserved ejection fraction Acute respiratory failure with hypoxia Anemia Colonic mass Coronary artery disease Diabetes mellitus Hypertensive urgency Hypoxemia Obstructive sleep apnea Pleural effusion Pneumonia Acute exacerbation of chronic obstructive pulmonary disease Chief Complaint CYSTO, TURP, OLYMPUS SYST TURP [employer] CONSTIPATION unable to urinate 3 M FU COPD, DEBILITY. RX HERE DECOMPENSATED HFPEF DECOMPENSATED HFPEF DECOMPENSATED HFPEF sob SOB s/p pcu fu/ bp check CHEST PAIN, ? UA, PNA CHEST PAIN, ? UA, PNA CHEST PAIN / ? UA / PNA CHEST PAIN / ? UA / PNA UNSTABLE ANGINA, PNA CHEST PAIN / ? UA / PNA CHEST PAIN / ? UA / PNA CHEST PAIN / ? UA / PNA CHEST PAIN / ? UA / PNA CHEST PAIN / ? 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 [facility] PT Reason for Visit Abdominal aortic ane urysm Allergic rhinitis Debility Gastroesophageal reflux disease Hyperlipidemia BPH (benign prostatic hyperplasia) Chronic obstructive pulmonary disease History of transurethral resection of prostate Hypertension Kidney stone Urinary retention ALMEIDA (dyspnea on exertion) HLD (hyperlipidemia) Essential (primary) hypertension Abdominal aortic aneurysm (AAA) Acute respiratory failure with hypoxia Elevated brain natriuretic peptide (BNP) level Hypertensive emergency Pulmonary edema ALMEIDA (dyspnea on exertion) HLD (hyperlipidemia) Lightheadedness Essential (primary) hypertension Abdominal aortic aneurysm (AAA) Elevated blood pressure reading Acute electrocardiogram changes Chest pain ALMEIDA (dyspnea on exertion) Pneumonia Unstable angina Acute exacerbation of chronic obstructive pulmonary disease Hypertensive urgency Hypoxemia Pneumonia ALMEIDA (dyspnea on exertion) Fatigue Essential (primary) hypertension Abdominal aortic aneurysm (AAA) HLD (hyperlipidemia) Frequent hospital admissions Gastroesophageal reflux disease Asthma-COPD overlap syndrome Essential (primary) hypertension Peripheral vascular disease of extremity with claudication Restless legs syndrome Establishing care with new doctor, encounter for Urinary retention Controlled type 2 diabetes mellitus Chief Complaint CYSTO, TURP, OLYMPUS SYST TURP [employer] unable to urinate 3 M FU COPD, DEBILITY. RX HERE DECOMPENSATED HFPEF DECOMPENSATED HFPEF DECOMPENSATED HFPEF sob SOB s/p pcu fu/ bp check CHEST PAIN, ? UA, PNA CHEST PAIN, ? UA, PNA CHEST PAIN / ? UA / PNA CHEST PAIN / ? UA / PNA UNSTABLE ANGINA, PNA CHEST PAIN / ? UA / PNA CHEST PAIN / ? UA / PNA CHEST PAIN / ? UA / PNA CHEST PAIN / ? UA / PNA CHEST PAIN / ? 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 BENIGNO [facility] PT 4 M FU Reason for Visit Abdominal aortic ane urysm Allergic rhinitis Debility Gastroesophageal reflux disease Hyperlipidemia Obstructive sleep apnea BPH (benign prostatic hyperplasia) Chronic obstructive pulmonary disease History of transurethral resection of prostate Hypertension Kidney stone Urinary retention ALMEIDA (dyspnea on exertion) HLD (hyperlipidemia) Essential (primary) hypertension Abdominal aortic aneurysm (AAA) Acute respiratory failure with hypoxia Elevated brain natriuretic peptide (BNP) level Hypertensive emergency Pulmonary edema ALMEIDA (dyspnea on exertion) HLD (hyperlipidemia) Lightheadedness Essential (primary) hypertension Abdominal aortic aneurysm (AAA) Elevated blood pressure reading Acute electrocardiogram changes Chest pain ALMEIDA (dyspnea on exertion) Pneumonia Unstable angina (HFpEF) heart failure with preserved ejection fraction Obstructive sleep apnea Acute exacerbation of chronic obstructive pulmonary disease Hypertensive urgency Hypoxemia Pneumonia ALMEIDA (dyspnea on exertion) Fatigue Essential (primary) hypertension Abdominal aortic aneurysm (AAA) HLD (hyperlipidemia) (HFpEF) heart failure with preserved ejection fraction Frequent hospital admissions Gastroesophageal reflux disease Obstructive sleep apnea Asthma-COPD overlap syndrome Essential (primary) hypertension Peripheral vascular disease of extremity with claudication Restless legs syndrome Establishing care with new doctor, encounter for Urinary retention Controlled type 2 diabetes mellitus (HFpEF) heart failure with preserved ejection fraction Frequent hospital admissions Obstructive sleep apnea Asthma-COPD overlap syndrome Chief Complaint SYST TURP OLYMPICS CONSTIPATION unable to urinate 3 M FU COPD, DEBILITY. RX HERE DECOMPENSATED HFPEF DECOMPENSATED HFPEF DECOMPENSATED HFPEF sob SOB s/p pcu fu/ bp check CHEST PAIN, ? UA, PNA CHEST PAIN, ? UA, PNA CHEST PAIN / ? UA / PNA CHEST PAIN / ? UA / PNA UNSTABLE ANGINA, PNA CHEST PAIN / ? UA / PNA CHEST PAIN / ? UA / PNA CHEST PAIN / ? UA / PNA CHEST PAIN / ? UA / PNA CHEST PAIN / ? 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 [facility] PT 4 M FU EORDER Reason for Visit Abdominal aortic ane urysm Allergic rhinitis Debility Gastroesophageal reflux disease Hyperlipidemia Obstructive sleep apnea BPH (benign prostatic hyperplasia) Chronic obstructive pulmonary disease History of transurethral resection of prostate Hypertension Kidney stone Urinary retention ALMEIDA (dyspnea on exertion) HLD (hyperlipidemia) Essential (primary) hypertension Abdominal aortic aneurysm (AAA) Acute respiratory failure with hypoxia Elevated brain natriuretic peptide (BNP) level Hypertensive emergency Pulmonary edema ALMEIDA (dyspnea on exertion) HLD (hyperlipidemia) Lightheadedness Essential (primary) hypertension Abdominal aortic aneurysm (AAA) Elevated blood pressure reading Acute electrocardiogram changes Chest pain ALMEIDA (dyspnea on exertion) Pneumonia Unstable angina (HFpEF) heart failure with preserved ejection fraction Obstructive sleep apnea Acute exacerbation of chronic obstructive pulmonary disease Hypertensive urgency Hypoxemia Pneumonia ALMEIDA (dyspnea on exertion) Fatigue Essential (primary) hypertension Abdominal aortic aneurysm (AAA) HLD (hyperlipidemia) (HFpEF) heart failure with preserved ejection fraction Frequent hospital admissions Gastroesophageal reflux disease Obstructive sleep apnea Asthma-COPD overlap syndrome Essential (primary) hypertension Peripheral vascular disease of extremity with claudication Restless legs syndrome Establishing care with new doctor, encounter for Urinary retention Controlled type 2 diabetes mellitus (HFpEF) heart failure with preserved ejection fraction Frequent hospital admissions Obstructive sleep apnea Asthma-COPD overlap syndrome Chief Complaint unable to urinate 3 M FU COPD, DEBILITY. RX HERE DECOMPENSATED HFPEF DECOMPENSATED HFPEF DECOMPENSATED HFPEF sob SOB s/p pcu fu/ bp check CHEST PAIN, ? UA, PNA CHEST PAIN, ? UA, PNA CHEST PAIN / ? UA / PNA CHEST PAIN / ? UA / PNA UNSTABLE ANGINA, PNA CHEST PAIN / ? UA / PNA CHEST PAIN / ? UA / PNA CHEST PAIN / ? UA / PNA CHEST PAIN / ? UA / PNA CHEST PAIN / ? 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 [facility] PT 4 M FU EORDER 3 M FU E ORDER Reason for Visit ALMEIDA (dyspnea on exer tion) HLD (hyperlipidemia) Essential (primary) hypertension Abdominal aortic aneurysm (AAA) Acute respiratory failure with hypoxia Elevated brain natriuretic peptide (BNP) level Hypertensive emergency Pulmonary edema ALMEIDA (dyspnea on exertion) HLD (hyperlipidemia) Lightheadedness Essential (primary) hypertension Abdominal aortic aneurysm (AAA) Elevated blood pressure reading Acute electrocardiogram changes Chest pain ALMEIDA (dyspnea on exertion) Pneumonia Unstable angina (HFpEF) heart failure with preserved ejection fraction Obstructive sleep apnea Acute exacerbation of chronic obstructive pulmonary disease Hypertensive urgency Hypoxemia Pneumonia ALMEIDA (dyspnea on exertion) Fatigue Essential (primary) hypertension Abdominal aortic aneurysm (AAA) HLD (hyperlipidemia) (HFpEF) heart failure with preserved ejection fraction Frequent hospital admissions Gastroesophageal reflux disease Obstructive sleep apnea Asthma-COPD overlap syndrome Essential (primary) hypertension Peripheral vascular disease of extremity with claudication Restless legs syndrome Establishing care with new doctor, encounter for Urinary retention Controlled type 2 diabetes mellitus (HFpEF) heart failure with preserved ejection fraction Frequent hospital admissions Obstructive sleep apnea Asthma-COPD overlap syndrome Fatigue Essential (primary) hypertension Abdominal aortic aneurysm (AAA) HLD (hyperlipidemia) Chief Complaint 3 M FU 3 M FU 6 M FU Lumbar spine Room 2 HERNIATED DISC Reason for Visit (HFpEF) heart failur e with preserved ejection fraction Essential (primary) hypertension Obstructive sleep apnea Peripheral vascular disease of extremity with claudication Restless legs syndrome Controlled type 2 diabetes mellitus Obstructive sleep apnea Restless legs syndrome Spinal stenosis of lumbar region Chief Complaint 4 M FU LUMBAR SPINE 6 M FU 6 M FU E-ORDER DYSPNEA/SOB Amb Documentation Reason for Visit Lower back pain (HFpEF) heart failure with preserved ejection fraction Essential (primary) hypertension Obstructive sleep apnea Peripheral vascular disease of extremity with claudication Restless legs syndrome Lightheadedness Itching Controlled type 2 diabetes mellitus DDD (degenerative disc disease), lumbar Facet arthritis of lumbar region (HFpEF) heart failure with preserved ejection fraction Obstructive sleep apnea ALMEIDA (dyspnea on exertion) Fatigue (HFpEF) heart failure with preserved ejection fraction Essential (primary) hypertension Abdominal aortic aneurysm (AAA) HLD (hyperlipidemia) Chief Complaint LUMBAR SPINE 6 M FU 6 M FU E-ORDER DYSPNEA/SOB Amb Documentation 4 M FU Reason for Visit DDD (degenerative di sc disease), lumbar Facet arthritis of lumbar region (HFpEF) heart failure with preserved ejection fraction Obstructive sleep apnea ALMEIDA (dyspnea on exertion) Fatigue (HFpEF) heart failure with preserved ejection fraction Essential (primary) hypertension Abdominal aortic aneurysm (AAA) HLD (hyperlipidemia) Lower back pain (HFpEF) heart failure with preserved ejection fraction Essential (primary) hypertension Obstructive sleep apnea Peripheral vascular disease of extremity with claudication Restless legs syndrome Lightheadedness Controlled type 2 diabetes mellitus Chief Complaint 6 M FU 6 M FU E-ORDER DYSPNEA/SOB Amb Documentation 4 M FU MED DISCUSSION Reason for Visit (HFpEF) heart failur e with preserved ejection fraction Obstructive sleep apnea ALMEIDA (dyspnea on exertion) Fatigue (HFpEF) heart failure with preserved ejection fraction Essential (primary) hypertension Abdominal aortic aneurysm (AAA) HLD (hyperlipidemia) Lower back pain (HFpEF) heart failure with preserved ejection fraction Essential (primary) hypertension Obstructive sleep apnea Peripheral vascular disease of extremity with claudication Restless legs syndrome Lightheadedness Controlled type 2 diabetes mellitus Lower back pain (HFpEF) heart failure with preserved ejection fraction Essential (primary) hypertension Obstructive sleep apnea Peripheral vascular disease of extremity with claudication CKD (chronic kidney disease) stage 3, GFR 30-59 ml/min Controlled type 2 diabetes mellitus Chief Complaint 6 M FU 6 M FU E-ORDER DYSPNEA/SOB Amb Documentation 4 M FU MED DISCUSSION CKD4 Reason for Visit (HFpEF) heart failur e with preserved ejection fraction Obstructive sleep apnea ALMEIDA (dyspnea on exertion) Fatigue (HFpEF) heart failure with preserved ejection fraction Essential (primary) hypertension Abdominal aortic aneurysm (AAA) HLD (hyperlipidemia) Lower back pain (HFpEF) heart failure with preserved ejection fraction Essential (primary) hypertension Obstructive sleep apnea Peripheral vascular disease of extremity with claudication Restless legs syndrome Lightheadedness Controlled type 2 diabetes mellitus Lower back pain (HFpEF) heart failure with preserved ejection fraction Essential (primary) hypertension Obstructive sleep apnea Peripheral vascular disease of extremity with claudication CKD (chronic kidney disease) stage 3, GFR 30-59 ml/min Controlled type 2 diabetes mellitus Chief Complaint 6 M FU E-ORDER DYSPNEA/SOB Amb Documentation 4 M FU MED DISCUSSION CKD4 OTHER SPECIFIED DISORDERS OF KIDNEY AND URETER Reason for Visit ALMEIDA (dyspnea on exer tion) Fatigue (HFpEF) heart failure with preserved ejection fraction Essential (primary) hypertension Abdominal aortic aneurysm (AAA) HLD (hyperlipidemia) Lower back pain (HFpEF) heart failure with preserved ejection fraction Essential (primary) hypertension Obstructive sleep apnea Peripheral vascular disease of extremity with claudication Restless legs syndrome Lightheadedness Controlled type 2 diabetes mellitus Lower back pain (HFpEF) heart failure with preserved ejection fraction Essential (primary) hypertension Obstructive sleep apnea Peripheral vascular disease of extremity with claudication CKD (chronic kidney disease) stage 3, GFR 30-59 ml/min Controlled type 2 diabetes mellitus Chief Complaint 4 M FU MED DISCUSSION CKD4 OTHER SPECIFIED DISORDERS OF KIDNEY AND URETER dizziness VERTIGO Reason for Visit Lower back pain (HFpEF) heart failure with preserved ejection fraction Asthma-COPD overlap syndrome Essential (primary) hypertension Obstructive sleep apnea Peripheral vascular disease of extremity with claudication Restless legs syndrome Lightheadedness Controlled type 2 diabetes mellitus Lower back pain (HFpEF) heart failure with preserved ejection fraction Asthma-COPD overlap syndrome Essential (primary) hypertension Obstructive sleep apnea Peripheral vascular disease of extremity with claudication CKD (chronic kidney disease) stage 3, GFR 30-59 ml/min Controlled type 2 diabetes mellitus Nausea and vomiting Vertigo Asthma-COPD overlap syndrome Peripheral vascular disease of extremity with claudication Chief Complaint MED DISCUSSION CKD4 OTHER SPECIFIED DISORDERS OF KIDNEY AND URETER dizziness VERTIGO 4-5 m f/u 4 M FU Dizziness and giddiness Reason for Visit Lower back pain (HFpEF) heart failure with preserved ejection fraction Asthma-COPD overlap syndrome Essential (primary) hypertension Obstructive sleep apnea Peripheral vascular disease of extremity with claudication CKD (chronic kidney disease) stage 3, GFR 30-59 ml/min Controlled type 2 diabetes mellitus Asthma-COPD overlap syndrome Peripheral vascular disease of extremity with claudication Nausea and vomiting Vertigo Dizziness Fatigue (HFpEF) heart failure with preserved ejection fraction Essential (primary) hypertension Abdominal aortic aneurysm (AAA) HLD (hyperlipidemia) Dizziness Lower back pain (HFpEF) heart failure with preserved ejection fraction Asthma-COPD overlap syndrome Essential (primary) hypertension Obstructive sleep apnea Peripheral vascular disease of extremity with claudication Thyroid nodule CKD (chronic kidney disease) stage 3, GFR 30-59 ml/min Abnormal chest x-ray Controlled type 2 diabetes mellitus Hospital discharge follow-up Chief Complaint MED DISCUSSION CKD4 OTHER SPECIFIED DISORDERS OF KIDNEY AND URETER dizziness VERTIGO 4-5 m f/u 4 M FU Dizziness and giddiness Amb Documentation Congestion/cough CHEST Reason for Visit Lower back pain (HFpEF) heart failure with preserved ejection fraction Asthma-COPD overlap syndrome Essential (primary) hypertension Obstructive sleep apnea Peripheral vascular disease of extremity with claudication CKD (chronic kidney disease) stage 3, GFR 30-59 ml/min Controlled type 2 diabetes mellitus Asthma-COPD overlap syndrome Peripheral vascular disease of extremity with claudication Nausea and vomiting Vertigo Dizziness Fatigue (HFpEF) heart failure with preserved ejection fraction Essential (primary) hypertension Abdominal aortic aneurysm (AAA) HLD (hyperlipidemia) Dizziness Lower back pain (HFpEF) heart failure with preserved ejection fraction Asthma-COPD overlap syndrome Essential (primary) hypertension Obstructive sleep apnea Peripheral vascular disease of extremity with claudication Thyroid nodule CKD (chronic kidney disease) stage 3, GFR 30-59 ml/min Abnormal chest x-ray Controlled type 2 diabetes mellitus Hospital discharge follow-up Cough DM2 (diabetes mellitus, type 2) Dysuria Chief Complaint OTHER SPECIFIED DISO RDERS OF KIDNEY AND URETER dizziness VERTIGO 4-5 m f/u 4 M FU Dizziness and giddiness Amb Documentation Congestion/cough CHEST 6 M FU SOB [facility] ER FOLLOW UP BP CHECK Reason for Visit Asthma-COPD overlap syndrome Peripheral vascular disease of extremity with claudication Nausea and vomiting Vertigo Dizziness Fatigue (HFpEF) heart failure with preserved ejection fraction Essential (primary) hypertension Abdominal aortic aneurysm (AAA) HLD (hyperlipidemia) Dizziness Lower back pain (HFpEF) heart failure with preserved ejection fraction Asthma-COPD overlap syndrome Essential (primary) hypertension Obstructive sleep apnea Peripheral vascular disease of extremity with claudication Thyroid nodule CKD (chronic kidney disease) stage 3, GFR 30-59 ml/min Abnormal chest x-ray Controlled type 2 diabetes mellitus Hospital discharge follow-up Cough DM2 (diabetes mellitus, type 2) Dysuria Asthma-COPD overlap syndrome Obstructive sleep apnea Anemia Atrial fibrillation Dyspnea Hospital discharge follow-up PAD (peripheral artery disease) (HFpEF) heart failure with preserved ejection fraction Anemia Chief Complaint OTHER SPECIFIED DISO RDERS OF KIDNEY AND URETER dizziness VERTIGO 4-5 m f/u 4 M FU Dizziness and giddiness Amb Documentation Congestion/cough CHEST 6 M FU SOB [facility] ER FOLLOW UP BP CHECK EORDER Reason for Visit Asthma-COPD overlap syndrome Peripheral vascular disease of extremity with claudication Nausea and vomiting Vertigo Dizziness Fatigue (HFpEF) heart failure with preserved ejection fraction Essential (primary) hypertension Abdominal aortic aneurysm (AAA) HLD (hyperlipidemia) Dizziness Lower back pain (HFpEF) heart failure with preserved ejection fraction Asthma-COPD overlap syndrome Essential (primary) hypertension Obstructive sleep apnea Peripheral vascular disease of extremity with claudication Thyroid nodule CKD (chronic kidney disease) stage 3, GFR 30-59 ml/min Abnormal chest x-ray Controlled type 2 diabetes mellitus Hospital discharge follow-up Cough DM2 (diabetes mellitus, type 2) Dysuria Asthma-COPD overlap syndrome Obstructive sleep apnea Anemia Atrial fibrillation Dyspnea Hospital discharge follow-up PAD (peripheral artery disease) (HFpEF) heart failure with preserved ejection fraction Anemia Chief Complaint OTHER SPECIFIED DISO RDERS OF KIDNEY AND URETER dizziness VERTIGO 4-5 m f/u 4 M FU Dizziness and giddiness Amb Documentation Congestion/cough CHEST 6 M FU SOB [facility] ER FOLLOW UP BP CHECK EORDER sob Reason for Visit Asthma-COPD overlap syndrome Peripheral vascular disease of extremity with claudication Nausea and vomiting Vertigo Dizziness Fatigue (HFpEF) heart failure with preserved ejection fraction Essential (primary) hypertension Abdominal aortic aneurysm (AAA) HLD (hyperlipidemia) Dizziness Lower back pain (HFpEF) heart failure with preserved ejection fraction Asthma-COPD overlap syndrome Essential (primary) hypertension Obstructive sleep apnea Peripheral vascular disease of extremity with claudication Thyroid nodule CKD (chronic kidney disease) stage 3, GFR 30-59 ml/min Abnormal chest x-ray Controlled type 2 diabetes mellitus Hospital discharge follow-up Cough DM2 (diabetes mellitus, type 2) Dysuria Asthma-COPD overlap syndrome Obstructive sleep apnea Anemia Atrial fibrillation Dyspnea Hospital discharge follow-up PAD (peripheral artery disease) (HFpEF) heart failure with preserved ejection fraction Anemia Chief Complaint dizziness VERTIGO 4-5 m f/u 4 M FU Dizziness and giddiness Amb Documentation Congestion/cough CHEST 6 M FU SOB [facility] ER FOLLOW UP BP CHECK EORDER sob Reason for Visit Asthma-COPD overlap syndrome Peripheral vascular disease of extremity with claudication Nausea and vomiting Vertigo Dizziness Fatigue (HFpEF) heart failure with preserved ejection fraction Essential (primary) hypertension Abdominal aortic aneurysm (AAA) HLD (hyperlipidemia) Dizziness Lower back pain (HFpEF) heart failure with preserved ejection fraction Asthma-COPD overlap syndrome Essential (primary) hypertension Obstructive sleep apnea Peripheral vascular disease of extremity with claudication Thyroid nodule CKD (chronic kidney disease) stage 3, GFR 30-59 ml/min Abnormal chest x-ray Controlled type 2 diabetes mellitus Hospital discharge follow-up Cough DM2 (diabetes mellitus, type 2) Dysuria Asthma-COPD overlap syndrome Obstructive sleep apnea Anemia Atrial fibrillation Dyspnea Hospital discharge follow-up PAD (peripheral artery disease) (HFpEF) heart failure with preserved ejection fraction Anemia Chief Complaint dizziness VERTIGO 4-5 m f/u 4 M FU Dizziness and giddiness Amb Documentation Congestion/cough CHEST 6 M FU SOB [facility] ER FOLLOW UP BP CHECK EORDER sob 3 M FU Shortness of breath Reason for Visit Asthma-COPD overlap syndrome Peripheral vascular disease of extremity with claudication Nausea and vomiting Vertigo Dizziness Fatigue (HFpEF) heart failure with preserved ejection fraction Essential (primary) hypertension Abdominal aortic aneurysm (AAA) HLD (hyperlipidemia) Dizziness Lower back pain (HFpEF) heart failure with preserved ejection fraction Asthma-COPD overlap syndrome Essential (primary) hypertension Obstructive sleep apnea Peripheral vascular disease of extremity with claudication Thyroid nodule CKD (chronic kidney disease) stage 3, GFR 30-59 ml/min Abnormal chest x-ray Controlled type 2 diabetes mellitus Hospital discharge follow-up Cough DM2 (diabetes mellitus, type 2) Dysuria Asthma-COPD overlap syndrome Obstructive sleep apnea Anemia Atrial fibrillation Dyspnea Hospital discharge follow-up PAD (peripheral artery disease) (HFpEF) heart failure with preserved ejection fraction Anemia Fatigue (HFpEF) heart failure with preserved ejection fraction Essential (primary) hypertension Abdominal aortic aneurysm (AAA) HLD (hyperlipidemia) Chief Complaint dizziness VERTIGO 4-5 m f/u 4 M FU Dizziness and giddiness Amb Documentation Congestion/cough CHEST 6 M FU SOB [facility] ER FOLLOW UP BP CHECK EORDER sob 3 M FU Shortness of breath ER FOLLOW UP constipation [facility] Reason for Visit Asthma-COPD overlap syndrome Peripheral vascular disease of extremity with claudication Nausea and vomiting Vertigo Dizziness Fatigue (HFpEF) heart failure with preserved ejection fraction Essential (primary) hypertension Abdominal aortic aneurysm (AAA) HLD (hyperlipidemia) Dizziness Lower back pain (HFpEF) heart failure with preserved ejection fraction Asthma-COPD overlap syndrome Essential (primary) hypertension Obstructive sleep apnea Peripheral vascular disease of extremity with claudication Thyroid nodule CKD (chronic kidney disease) stage 3, GFR 30-59 ml/min Abnormal chest x-ray Controlled type 2 diabetes mellitus Hospital discharge follow-up Cough DM2 (diabetes mellitus, type 2) Dysuria Asthma-COPD overlap syndrome Obstructive sleep apnea Anemia Atrial fibrillation Dyspnea Hospital discharge follow-up PAD (peripheral artery disease) (HFpEF) heart failure with preserved ejection fraction Anemia Fatigue (HFpEF) heart failure with preserved ejection fraction Essential (primary) hypertension Abdominal aortic aneurysm (AAA) HLD (hyperlipidemia) Anemia Urinary retention (HFpEF) heart failure with preserved ejection fraction Asthma-COPD overlap syndrome CKD (chronic kidney disease) Chief Complaint 4 M FU Dizziness and giddiness Amb Documentation Congestion/cough CHEST 6 M FU SOB [facility] ER FOLLOW UP BP CHECK EORDER sob 3 M FU Shortness of breath ER FOLLOW UP constipation [facility] Reason for Visit Dizziness Lower back pain (HFpEF) heart failure with preserved ejection fraction Asthma-COPD overlap syndrome Essential (primary) hypertension Obstructive sleep apnea Peripheral vascular disease of extremity with claudication Thyroid nodule CKD (chronic kidney disease) stage 3, GFR 30-59 ml/min Abnormal chest x-ray Controlled type 2 diabetes mellitus Hospital discharge follow-up Cough DM2 (diabetes mellitus, type 2) Dysuria Asthma-COPD overlap syndrome Obstructive sleep apnea Anemia Atrial fibrillation Dyspnea Hospital discharge follow-up PAD (peripheral artery disease) (HFpEF) heart failure with preserved ejection fraction Anemia Fatigue (HFpEF) heart failure with preserved ejection fraction Essential (primary) hypertension Abdominal aortic aneurysm (AAA) HLD (hyperlipidemia) Anemia Urinary retention (HFpEF) heart failure with preserved ejection fraction Asthma-COPD overlap syndrome CKD (chronic kidney disease) Chief Complaint Dizziness and giddin ess Amb Documentation Congestion/cough CHEST 6 M FU SOB [facility] ER FOLLOW UP BP CHECK EORDER sob 3 M FU Shortness of breath ER FOLLOW UP constipation [facility] EORDER 4 m fu Reason for Visit DM2 (diabetes mellit us, type 2) Dysuria Cough Asthma-COPD overlap syndrome Obstructive sleep apnea Anemia Atrial fibrillation Dyspnea PAD (peripheral artery disease) (HFpEF) heart failure with preserved ejection fraction Hospital discharge follow-up Anemia Fatigue (HFpEF) heart failure with preserved ejection fraction Essential (primary) hypertension Abdominal aortic aneurysm (AAA) HLD (hyperlipidemia) Anemia Urinary retention (HFpEF) heart failure with preserved ejection fraction Asthma-COPD overlap syndrome CKD (chronic kidney disease) Atrial fibrillation Lower back pain Urinary retention (HFpEF) heart failure with preserved ejection fraction Asthma-COPD overlap syndrome Essential (primary) hypertension Obstructive sleep apnea Peripheral vascular disease of extremity with claudication Colonic mass Thyroid nodule CKD (chronic kidney disease) stage 3, GFR 30-59 ml/min Controlled type 2 diabetes mellitus Constipation Chief Complaint Dizziness and giddin ess Amb Documentation Congestion/cough CHEST 6 M FU SOB WC ER FOLLOW UP BP CHECK EORDER sob 3 M FU Shortness of breath ER FOLLOW UP constipation [facility] EORDER 4 m fu DYSPNEA Reason for Visit DM2 (diabetes mellit , type 2) Dysuria Cough Asthma-COPD overlap syndrome Obstructive sleep apnea Anemia Atrial fibrillation Dyspnea PAD (peripheral artery disease) (HFpEF) heart failure with preserved ejection fraction Hospital discharge follow-up Anemia Fatigue (HFpEF) heart failure with preserved ejection fraction Essential (primary) hypertension Abdominal aortic aneurysm (AAA) HLD (hyperlipidemia) Anemia Urinary retention (HFpEF) heart failure with preserved ejection fraction Asthma-COPD overlap syndrome CKD (chronic kidney disease) Atrial fibrillation Lower back pain Urinary retention (HFpEF) heart failure with preserved ejection fraction Asthma-COPD overlap syndrome Essential (primary) hypertension Obstructive sleep apnea Peripheral vascular disease of extremity with claudication Colonic mass Thyroid nodule CKD (chronic kidney disease) stage 3, GFR 30-59 ml/min Controlled type 2 diabetes mellitus Constipation Acute respiratory insufficiency Bilateral edema of lower extremity Chronic anemia Chronic kidney disease Chief Complaint Dizziness and giddin ess Amb Documentation Congestion/cough CHEST 6 M FU SOB WC ER FOLLOW UP BP CHECK EORDER sob 3 M FU Shortness of breath ER FOLLOW UP constipation [facility] EORDER 4 m fu DYSPNEA SHORTNESS OF BREATH SHORTNESS OF BREATH SHORTNESS OF BREATH SHORTNESS OF BREATH SHORTNESS OF BREATH Reason for Visit DM2 (diabetes mellit , type 2) Dysuria Cough Asthma-COPD overlap syndrome Obstructive sleep apnea Anemia Atrial fibrillation Dyspnea PAD (peripheral artery disease) (HFpEF) heart failure with preserved ejection fraction Hospital discharge follow-up Anemia Fatigue (HFpEF) heart failure with preserved ejection fraction Essential (primary) hypertension Abdominal aortic aneurysm (AAA) HLD (hyperlipidemia) Anemia Urinary retention (HFpEF) heart failure with preserved ejection fraction Asthma-COPD overlap syndrome CKD (chronic kidney disease) Atrial fibrillation Lower back pain Urinary retention (HFpEF) heart failure with preserved ejection fraction Asthma-COPD overlap syndrome Essential (primary) hypertension Obstructive sleep apnea Peripheral vascular disease of extremity with claudication Colonic mass Thyroid nodule CKD (chronic kidney disease) stage 3, GFR 30-59 ml/min Controlled type 2 diabetes mellitus Constipation Acute respiratory insufficiency Bilateral edema of lower extremity Asthma-COPD overlap syndrome Chronic anemia Chronic kidney disease Chief Complaint Congestion/cough CHEST 6 M FU SOB [facility] ER FOLLOW UP BP CHECK EORDER sob 3 M FU Shortness of breath ER FOLLOW UP constipation [facility] EORDER 4 m fu DYSPNEA SHORTNESS OF BREATH SHORTNESS OF BREATH SHORTNESS OF BREATH SHORTNESS OF BREATH SHORTNESS OF BREATH [facility] FU Reason for Visit DM2 (diabetes mellit us, type 2) Dysuria Cough Obstructive sleep apnea Anemia Atrial fibrillation Dyspnea PAD (peripheral artery disease) (HFpEF) heart failure with preserved ejection fraction Hospital discharge follow-up Anemia Fatigue (HFpEF) heart failure with preserved ejection fraction Essential (primary) hypertension Abdominal aortic aneurysm (AAA) HLD (hyperlipidemia) Anemia Urinary retention (HFpEF) heart failure with preserved ejection fraction CKD (chronic kidney disease) Atrial fibrillation Lower back pain Urinary retention (HFpEF) heart failure with preserved ejection fraction Essential (primary) hypertension Obstructive sleep apnea Peripheral vascular disease of extremity with claudication Colonic mass Thyroid nodule CKD (chronic kidney disease) stage 3, GFR 30-59 ml/min Controlled type 2 diabetes mellitus Constipation Acute respiratory insufficiency Bilateral edema of lower extremity Chronic anemia Acute on chronic heart failure with normal ejection fraction Colonic mass Controlled type 2 diabetes mellitus Hospital discharge follow-up Chief Complaint Congestion/cough CHEST 6 M FU SOB [facility] ER FOLLOW UP BP CHECK EORDER sob 3 M FU Shortness of breath ER FOLLOW UP constipation [facility] EORDER 4 m fu DYSPNEA SHORTNESS OF BREATH SHORTNESS OF BREATH SHORTNESS OF BREATH SHORTNESS OF BREATH SHORTNESS OF BREATH [facility] FU weakness Reason for Visit DM2 (diabetes mellit us, type 2) Dysuria Cough Obstructive sleep apnea Anemia Atrial fibrillation Dyspnea PAD (peripheral artery disease) (HFpEF) heart failure with preserved ejection fraction Hospital discharge follow-up Anemia Fatigue (HFpEF) heart failure with preserved ejection fraction Essential (primary) hypertension Abdominal aortic aneurysm (AAA) HLD (hyperlipidemia) Anemia Urinary retention (HFpEF) heart failure with preserved ejection fraction CKD (chronic kidney disease) Atrial fibrillation Lower back pain Urinary retention (HFpEF) heart failure with preserved ejection fraction Essential (primary) hypertension Obstructive sleep apnea Peripheral vascular disease of extremity with claudication Colonic mass Thyroid nodule CKD (chronic kidney disease) stage 3, GFR 30-59 ml/min Controlled type 2 diabetes mellitus Constipation Acute respiratory insufficiency Bilateral edema of lower extremity Chronic anemia Acute on chronic heart failure with normal ejection fraction Colonic mass Controlled type 2 diabetes mellitus Hospital discharge follow-up Chief Complaint 6 M FU SOB [facility] ER FOLLOW UP BP CHECK EORDER sob 3 M FU Shortness of breath ER FOLLOW UP constipation [facility] EORDER 4 m fu DYSPNEA SHORTNESS OF BREATH SHORTNESS OF BREATH SHORTNESS OF BREATH SHORTNESS OF BREATH SHORTNESS OF BREATH [facility] FU weakness S/P [facility] 01/28 INT LABS 1 UNIT PRBC Reason for Visit Obstructive sleep ap saad Anemia Atrial fibrillation Dyspnea PAD (peripheral artery disease) (HFpEF) heart failure with preserved ejection fraction Hospital discharge follow-up Anemia Fatigue (HFpEF) heart failure with preserved ejection fraction Essential (primary) hypertension Abdominal aortic aneurysm (AAA) HLD (hyperlipidemia) Anemia Urinary retention (HFpEF) heart failure with preserved ejection fraction CKD (chronic kidney disease) Atrial fibrillation Lower back pain Urinary retention (HFpEF) heart failure with preserved ejection fraction Essential (primary) hypertension Obstructive sleep apnea Peripheral vascular disease of extremity with claudication Colonic mass Thyroid nodule CKD (chronic kidney disease) stage 3, GFR 30-59 ml/min Controlled type 2 diabetes mellitus Constipation Acute respiratory insufficiency Bilateral edema of lower extremity Chronic anemia Acute on chronic heart failure with normal ejection fraction Colonic mass Controlled type 2 diabetes mellitus Hospital discharge follow-up Edema (HFpEF) heart failure with preserved ejection fraction Chronic anemia Essential (primary) hypertension Abdominal aortic aneurysm (AAA) HLD (hyperlipidemia) Chief Complaint Admit Date WELLNESS August 24, 2024 1:46pm THYROID NODULE August 31, 2024 2:22pm Amb Documentation October 06, 2024 11:11am 6 M FU October 06, 2024 1:09pm MARIXA November 03, 2024 1 1:00am 4 M FU November 30, 2024 2:39pm EXAC OF COPD, INFLUENZA A December 14 11:48am Reason for Visit Admit Date Atrial fibrillation August 24, 2024 1:46pm Lower back pain August 24, 2024 1:46pm (HFpEF) heart failure with preserved eje ction fraction August 24, 2024 1:46pm COPD (chronic obstructive pulmonary dise ase) August 24, 2024 1:46pm Essential (primary) hypertension Novembe r 2023 1:46pm Obstructive sleep apnea August 24, 2 024 1:46pm Peripheral vascular disease of extremity with claudication August 24, 2024 1:46pm Medicare annual wellness visit, amole nt August 24, 2024 1:46pm Immunization due August 24, 2024 1:46pm Thyroid nodule August 24, 2024 1:46pm CKD (chronic kidney disease) stage 3, GF R 30-59 ml/min August 24, 2024 1:46pm Controlled type 2 diabetes mellitus Manny rojas 2023 1:46pm Asthma-COPD overlap syndrome October 062023 1:09pm Obstructive sleep apnea October 06, 2 024 1:09pm Restless legs syndrome October 06 1:09pm Atherosclerotic heart diseas e of [place] coronary artery without angina pectoris November 30, 2024 2:39pm Atrial fibrillation with controlled vent ricular rate November 30, 2024 2:39pm Essential (primary) hypertension ua y 2024 2:39pm HLD (hyperlipidemia) November 30, 2024 2:39pm Abdominal aortic aneurysm (AAA) November 30, 2024 2:39pm Chief Complaint Admit Date Amb Documentation October 06, 2024 11:11am 6 M FU October 06, 2024 1:09pm MARIXA November 03, 2024 1 1:00am 4 M FU November 30, 2024 2:39pm EXAC OF COPD, INFLUENZA A December 14 11:48am EXAC OF COPD, INFLUENZA A December 14 7:13pm EXAC OF COPD, INFLUENZA A December 15 7:55pm EXAC OF COPD, INFLUENZA A December 16 5:40pm EXAC OF COPD, INFLUENZA A December 17 12:45pm [facility] FU December 28, 2024 8:2 2am 3 M FU January 01, 2025 12: 38pm Reason for Visit Admit Date Obstructive sleep apnea October 06, 2 024 1:09pm Restless legs syndrome October 06 1:09pm Asthma-COPD overlap syndrome October 062023 1:09pm Atherosclerotic heart diseas e of [place] coronary artery without angina pectoris November 30, 2024 2:39pm Atrial fibrillation with controlled vent ricular rate November 30, 2024 2:39pm Essential (primary) hypertension 2024 2:39pm HLD (hyperlipidemia) November 30, 2024 2:39pm Abdominal aortic aneurysm (AAA) November 30, 2024 2:39pm Asthma-COPD overlap syndrome December 14, 2024 11:48am (HFpEF) heart failure with preserved eje ction fraction December 28, 2024 8:22am Acute hypoxic respiratory failure December 28, 2024 8:22am Influenza A December 28, 2024 8:2 2am CKD (chronic kidney disease) stage 3, GF R 30-59 ml/min December 28, 2024 8:22am Acute exacerbation of COPD with asthma [facility] 2024 8:22am Controlled type 2 diabetes mellitus [facility] 2024 8:22am Abrasion of head December 28, 2024 8:2 2am Hospital discharge follow-up December 28, 2024 8:22am Fall December 28, 2024 8:2 2am COPD (chronic obstructive pulmonary dise ase) January 01, 2025 12:38pm Obstructive sleep apnea January 01, 2025 12:38pm Restless legs syndrome January 01, 2025 12:38pm Chief Complaint Admit Date Amb Documentation October 06, 2024 11:11am 6 M FU October 06, 2024 1:09pm MARIXA November 03, 2024 1 1:00am 4 M FU November 30, 2024 2:39pm EXAC OF COPD, INFLUENZA A December 14 11:48am EXAC OF COPD, INFLUENZA A December 14 7:13pm EXAC OF COPD, INFLUENZA A December 15 7:55pm EXAC OF COPD, INFLUENZA A December 16 5:40pm EXAC OF COPD, INFLUENZA A December 17 12:45pm [facility] FU December 28, 2024 8:2 2am 3 M FU January 01, 2025 12: 38pm PAIN IN LOWER LEGS/CANT GET WARM January 062024 2:47pm chest pain January 29, 2025 2:0 8pm Reason for Visit Admit Date Obstructive sleep apnea October 06, 024 1:09pm Restless legs syndrome October 06 1:09pm Asthma-COPD overlap syndrome October 062023 1:09pm Atherosclerotic heart diseas e of [place] coronary artery without angina pectoris November 30, 2024 2:39pm Atrial fibrillation with controlled vent ricular rate November 30, 2024 2:39pm Essential (primary) hypertension 2024 2:39pm HLD (hyperlipidemia) November 30, 2024 2:39pm Abdominal aortic aneurysm (AAA) November 30, 2024 2:39pm Asthma-COPD overlap syndrome December 14, 2024 11:48am (HFpEF) heart failure with preserved eje ction fraction December 28, 2024 8:22am Acute hypoxic respiratory failure December 28, 2024 8:22am Influenza A December 28, 2024 8:2 2am CKD (chronic kidney disease) stage 3, GF R 30-59 ml/min December 28, 2024 8:22am Acute exacerbation of COPD with asthma [facility] 2024 8:22am Controlled type 2 diabetes mellitus Rene 2024 8:22am Abrasion of head December 28, 2024 8:2 2am Hospital discharge follow-up December 28, 2024 8:22am Fall December 28, 2024 8:2 2am COPD (chronic obstructive pulmonary dise ase) January 01, 2025 12:38pm Obstructive sleep apnea January 01, 2025 12:38pm Restless legs syndrome January 01, 2025 12:38pm Episode of shaking January 06, 2025 2:47 pm Chief Complaint Admit Date MARIXA November 03, 2024 1 1:00am 4 M FU November 30, 2024 2:39pm EXAC OF COPD, INFLUENZA A December 14 11:48am EXAC OF COPD, INFLUENZA A December 14 7:13pm EXAC OF COPD, INFLUENZA A December 15 7:55pm EXAC OF COPD, INFLUENZA A December 16 5:40pm EXAC OF COPD, INFLUENZA A December 17 12:45pm WC FU December 28, 2024 8:2 2am 3 M FU January 01, 2025 12: 38pm PAIN IN LOWER LEGS/CANT GET WARM January 062024 2:47pm chest pain January 29, 2025 2:0 8pm WC FU February 01, 2025 10: 45am S/P [facility] 01/29February 04, 2025 1:30pm INT ORDER February 06, 2025 11:28a m REPATED FALLS. RX HERE February 08, 2025 12: 00pm Reason for Visit Admit Date Atherosclerotic heart diseas e of [place] coronary artery without angina pectoris November 30, 2024 2:39pm Atrial fibrillation with controlled vent ricular rate November 30, 2024 2:39pm Essential (primary) hypertension 2024 2:39pm HLD (hyperlipidemia) November 30, 2024 2:39pm Abdominal aortic aneurysm (AAA) November 30, 2024 2:39pm Asthma-COPD overlap syndrome December 14, 2024 11:48am (HFpEF) heart failure with preserved eje ction fraction December 28, 2024 8:22am Acute hypoxic respiratory failure December 28, 2024 8:22am Influenza A December 28, 2024 8:2 2am CKD (chronic kidney disease) stage 3, GF R 30-59 ml/min December 28, 2024 8:22am Acute exacerbation of COPD with asthma M arch 2024 8:22am Controlled type 2 diabetes mellitus Rene h 2024 8:22am Abrasion of head December 28, 2024 8:2 2am Hospital discharge follow-up December 28, 2024 8:22am Fall December 28, 2024 8:2 2am COPD (chronic obstructive pulmonary dise ase) January 01, 2025 12:38pm Obstructive sleep apnea January 01, 2025 12:38pm Restless legs syndrome January 01, 2025 12:38pm Episode of shaking January 06, 2025 2:47 pm Restless legs syndrome February 01, 2025 10:45am Atypical chest pain February 01, 2025 10: 45am Controlled type 2 diabetes mellitus Apri l 2024 10:45am Recurrent falls February 01, 2025 10: 45am Iron deficiency February 01, 2025 10: 45am Chronic anticoagulation February 04, 2025 1: 30pm Right carotid bruit February 04, 2025 1:30pm Atherosclerotic heart diseas e of [place] coronary artery without angina pectoris February 04, 2025 1:30pm Atrial fibrillation with controlled vent ricular rate February 04, 2025 1:30pm Essential (primary) hypertension February 1:30pm HLD (hyperlipidemia) February 04, 2025 1:30p m Abdominal aortic aneurysm (AAA) February 04, 2025 1:30pm Chief Complaint Admit Date MARIXA November 03, 2024 1 1:00am 4 M FU November 30, 2024 2:39pm EXAC OF COPD, INFLUENZA A December 14 11:48am EXAC OF COPD, INFLUENZA A December 14 7:13pm EXAC OF COPD, INFLUENZA A December 15 7:55pm EXAC OF COPD, INFLUENZA A December 16 5:40pm EXAC OF COPD, INFLUENZA A December 17 12:45pm [facility] FU December 28, 2024 8:2 2am 3 M FU January 01, 2025 12: 38pm PAIN IN LOWER LEGS/CANT GET WARM January 062024 2:47pm chest pain January 29, 2025 2:0 8pm WC FU February 01, 2025 10: 45am S/P [facility] 01/29February 04, 2025 1:30pm INT ORDER February 06, 2025 11:28a m REPATED FALLS. RX HERE February 12, 2025 2:0 0pm DYSPNEA February 15, 2025 4:56a m Reason for Visit Admit Date Atherosclerotic heart diseas e of [place] coronary artery without angina pectoris November 30, 2024 2:39pm Atrial fibrillation with controlled vent ricular rate November 30, 2024 2:39pm Essential (primary) hypertension 2024 2:39pm HLD (hyperlipidemia) November 30, 2024 2:39pm Abdominal aortic aneurysm (AAA) November 30, 2024 2:39pm Asthma-COPD overlap syndrome December 14, 2024 11:48am (HFpEF) heart failure with preserved eje ction fraction December 28, 2024 8:22am Acute hypoxic respiratory failure December 28, 2024 8:22am Influenza A December 28, 2024 8:2 2am CKD (chronic kidney disease) stage 3, GF R 30-59 ml/min December 28, 2024 8:22am Acute exacerbation of COPD with asthma M arch 2024 8:22am Controlled type 2 diabetes mellitus Rene h 2024 8:22am Abrasion of head December 28, 2024 8:2 2am Hospital discharge follow-up December 28, 2024 8:22am Fall December 28, 2024 8:2 2am COPD (chronic obstructive pulmonary dise ase) January 01, 2025 12:38pm Obstructive sleep apnea January 01, 2025 12:38pm Restless legs syndrome January 01, 2025 12:38pm Episode of shaking January 06, 2025 2:47 pm Restless legs syndrome February 01, 2025 10:45am Atypical chest pain February 01, 2025 10: 45am Controlled type 2 diabetes mellitus Apri l 2024 10:45am Recurrent falls February 01, 2025 10: 45am Iron deficiency February 01, 2025 10: 45am Chronic anticoagulation February 04, 2025 1: 30pm Right carotid bruit February 04, 2025 1:30pm Atherosclerotic heart diseas e of [place] coronary artery without angina pectoris February 04, 2025 1:30pm Atrial fibrillation with controlled vent ricular rate February 04, 2025 1:30pm Essential (primary) hypertension February 1:30pm HLD (hyperlipidemia) February 04, 2025 1:30p m Abdominal aortic aneurysm (AAA) February 04, 2025 1:30pm Atrial fibrillation/flutter February 15 4:56am Elevated troponin February 15, 2025 4:56a m Obesity (BMI 30.0-34.9) February 15, 2025 4 :56am MARIXA treated with BiPAP February 15, 2025 4: 56am Diastolic CHF, acute on chronic February 4:56am Chief Complaint Admit Date MARIXA November 03, 2024 1 1:00am 4 M FU November 30, 2024 2:39pm EXAC OF COPD, INFLUENZA A December 14 11:48am EXAC OF COPD, INFLUENZA A December 14 7:13pm EXAC OF COPD, INFLUENZA A December 15 7:55pm EXAC OF COPD, INFLUENZA A December 16 5:40pm EXAC OF COPD, INFLUENZA A December 17 12:45pm WC FU December 28, 2024 8:2 2am 3 M FU January 01, 2025 12: 38pm PAIN IN LOWER LEGS/CANT GET WARM January 062024 2:47pm chest pain January 29, 2025 2:0 8pm WC FU February 01, 2025 10: 45am S/P [facility] 01/29February 04, 2025 1:30pm INT ORDER February 06, 2025 11:28a m REPATED FALLS. RX HERE February 12, 2025 2:0 0pm AE OF CHRONIC DIASTOLIC CHF, ELEVATED TR OPONIN, & February 15, 2025 4:56am AE OF CHRONIC DIASTOLIC CHF, ELEVATED TR OPONIN, & February 16, 2025 6:19pm Reason for Visit Admit Date Atherosclerotic heart diseas e of [place] coronary artery without angina pectoris November 30, 2024 2:39pm Atrial fibrillation with controlled vent ricular rate November 30, 2024 2:39pm Essential (primary) hypertension 2024 2:39pm HLD (hyperlipidemia) November 30, 2024 2:39pm Abdominal aortic aneurysm (AAA) November 30, 2024 2:39pm Asthma-COPD overlap syndrome December 14, 2024 11:48am (HFpEF) heart failure with preserved eje ction fraction December 28, 2024 8:22am Acute hypoxic respiratory failure December 28, 2024 8:22am Influenza A December 28, 2024 8:2 2am CKD (chronic kidney disease) stage 3, GF R 30-59 ml/min December 28, 2024 8:22am Acute exacerbation of COPD with asthma M arch 2024 8:22am Controlled type 2 diabetes mellitus Rene 2024 8:22am Abrasion of head December 28, 2024 8:2 2am Hospital discharge follow-up December 28, 2024 8:22am Fall December 28, 2024 8:2 2am COPD (chronic obstructive pulmonary dise ase) January 01, 2025 12:38pm Obstructive sleep apnea January 01, 2025 12:38pm Restless legs syndrome January 01, 2025 12:38pm Episode of shaking January 06, 2025 2:47 pm Restless legs syndrome February 01, 2025 10:45am Atypical chest pain February 01, 2025 10: 45am Controlled type 2 diabetes mellitus Apri l 2024 10:45am Recurrent falls February 01, 2025 10: 45am Iron deficiency February 01, 2025 10: 45am Chronic anticoagulation February 04, 2025 1: 30pm Right carotid bruit February 04, 2025 1:30pm Atherosclerotic heart diseas e of [place] coronary artery without angina pectoris February 04, 2025 1:30pm Atrial fibrillation with controlled vent ricular rate February 04, 2025 1:30pm Essential (primary) hypertension February 1:30pm HLD (hyperlipidemia) February 04, 2025 1:30p m Abdominal aortic aneurysm (AAA) February 04, 2025 1:30pm Acute bronchitis February 15, 2025 4:56a m Atrial fibrillation/flutter February 15 4:56am Elevated troponin February 15, 2025 4:56a m Leukocytosis February 15, 2025 4:56a m Muscle twitching February 15, 2025 4:56a m Neuropathy February 15, 2025 4:56a m Obesity (BMI 30.0-34.9) February 15, 2025 4 :56am MARIXA treated with BiPAP February 15, 2025 4: 56am Unsteady gait when walking February 15 4:56am Chronic systolic (congestive) heart fail ure February 15, 2025 4:56am Diastolic CHF, acute on chronic February 4:56am Chief Complaint Admit Date MARIXA November 03, 2024 1 1:00am 4 M FU November 30, 2024 2:39pm EXAC OF COPD, INFLUENZA A December 14 11:48am EXAC OF COPD, INFLUENZA A December 14 7:13pm EXAC OF COPD, INFLUENZA A December 15 7:55pm EXAC OF COPD, INFLUENZA A December 16 5:40pm EXAC OF COPD, INFLUENZA A December 17 12:45pm WC December 28, 2024 8:2 2am 3 M FU January 01, 2025 12: 38pm PAIN IN LOWER LEGS/CANT GET WARM January 062024 2:47pm chest pain January 29, 2025 2:0 8pm [facility] FU February 01, 2025 10: 45am S/P [facility] 01/29February 04, 2025 1:30pm INT ORDER February 06, 2025 11:28a m REPATED FALLS. RX HERE February 12, 2025 2:0 0pm AE OF CHRONIC DIASTOLIC CHF, ELEVATED TR OPONIN, & February 15, 2025 4:56am AE OF CHRONIC DIASTOLIC CHF, ELEVATED TR OPONIN, & February 16, 2025 6:19pm AE OF CHRONIC DIASTOLIC CHF, ELEVATED TR OPONIN, & February 17, 2025 7:14pm NARENDRA February 19, 2025 7:52p m Reason for Visit Admit Date Atherosclerotic heart diseas e of [place] coronary artery without angina pectoris November 30, 2024 2:39pm Atrial fibrillation with controlled vent ricular rate November 30, 2024 2:39pm Essential (primary) hypertension 2024 2:39pm HLD (hyperlipidemia) November 30, 2024 2:39pm Abdominal aortic aneurysm (AAA) November 30, 2024 2:39pm Asthma-COPD overlap syndrome December 14, 2024 11:48am (HFpEF) heart failure with preserved eje ction fraction December 28, 2024 8:22am Acute hypoxic respiratory failure December 28, 2024 8:22am Influenza A December 28, 2024 8:2 2am CKD (chronic kidney disease) stage 3, GF R 30-59 ml/min December 28, 2024 8:22am Acute exacerbation of COPD with asthma M arch 2024 8:22am Controlled type 2 diabetes mellitus Rene h 2024 8:22am Abrasion of head December 28, 2024 8:2 2am Hospital discharge follow-up December 28, 2024 8:22am Fall December 28, 2024 8:2 2am COPD (chronic obstructive pulmonary dise ase) January 01, 2025 12:38pm Obstructive sleep apnea January 01, 2025 12:38pm Restless legs syndrome January 01, 2025 12:38pm Episode of shaking January 06, 2025 2:47 pm Restless legs syndrome Carli 28th, 2025 10:45am Atypical chest pain February 01, 2025 10: 45am Controlled type 2 diabetes mellitus Apri l 2024 10:45am Recurrent falls February 01, 2025 10: 45am Iron deficiency February 01, 2025 10: 45am Chronic anticoagulation February 04, 2025 1: 30pm Right carotid bruit February 04, 2025 1:30pm Atherosclerotic heart diseas e of [place] coronary artery without angina pectoris February 04, 2025 1:30pm Atrial fibrillation with controlled vent ricular rate February 04, 2025 1:30pm Essential (primary) hypertension February 1:30pm HLD (hyperlipidemia) February 04, 2025 1:30p m Abdominal aortic aneurysm (AAA) February 04, 2025 1:30pm Acute bronchitis February 15, 2025 4:56a m Atrial fibrillation/flutter February 15 4:56am Elevated troponin February 15, 2025 4:56a m Leukocytosis February 15, 2025 4:56a m Muscle twitching February 15, 2025 4:56a m Neuropathy February 15, 2025 4:56a m Obesity (BMI 30.0-34.9) February 15, 2025 4 :56am MARIXA treated with BiPAP February 15, 2025 4: 56am Unsteady gait when walking February 15 4:56am Chronic systolic (congestive) heart fail ure February 15, 2025 4:56am Diastolic CHF, acute on chronic February 4:56am Acute hyperkalemia February 19, 2025 7:52p m Acute kidney injury February 19, 2025 7:52p m Generalized weakness February 19, 2025 7:52 pm Chief Complaint Admit Date MARIXA November 03, 2024 1 1:00am 4 M FU November 30, 2024 2:39pm EXAC OF COPD, INFLUENZA A December 14 11:48am EXAC OF COPD, INFLUENZA A December 14 7:13pm EXAC OF COPD, INFLUENZA A December 15 7:55pm EXAC OF COPD, INFLUENZA A December 16 5:40pm EXAC OF COPD, INFLUENZA A December 17 12:45pm [facility] FU December 28, 2024 8:2 2am 3 M FU January 01, 2025 12: 38pm PAIN IN LOWER LEGS/CANT GET WARM January 062024 2:47pm chest pain January 29, 2025 2:0 8pm [facility] FU February 01, 2025 10: 45am S/P [facility] 01/29February 04, 2025 1:30pm INT ORDER February 06, 2025 11:28a m REPATED FALLS. RX HERE February 12, 2025 2:0 0pm AE OF CHRONIC DIASTOLIC CHF, ELEVATED TR OPONIN, & February 15, 2025 4:56am AE OF CHRONIC DIASTOLIC CHF, ELEVATED TR OPONIN, & February 16, 2025 6:19pm AE OF CHRONIC DIASTOLIC CHF, ELEVATED TR OPONIN, & February 17, 2025 7:14pm AE OF CHRONIC DIASTOLIC CHF, ELEVATED TR OPONIN, & February 18, 2025 2:59pm NARENDRA February 19, 2025 7:52p m NARENDRA February 19, 2025 8:00p m NARENDRA February 20, 2025 2:00p m NARENDRA February 21, 2025 10:29 am Reason for Visit Admit Date Atherosclerotic heart diseas e of [place] coronary artery without angina pectoris November 30, 2024 2:39pm Atrial fibrillation with controlled vent ricular rate November 30, 2024 2:39pm Essential (primary) hypertension 2024 2:39pm HLD (hyperlipidemia) November 30, 2024 2:39pm Abdominal aortic aneurysm (AAA) November 30, 2024 2:39pm Asthma-COPD overlap syndrome December 14, 2024 11:48am (HFpEF) heart failure with preserved eje ction fraction December 28, 2024 8:22am Acute hypoxic respiratory failure December 28, 2024 8:22am Influenza A December 28, 2024 8:2 2am CKD (chronic kidney disease) stage 3, GF R 30-59 ml/min December 28, 2024 8:22am Acute exacerbation of COPD with asthma M arch 2024 8:22am Controlled type 2 diabetes mellitus Rene 2024 8:22am Abrasion of head December 28, 2024 8:2 2am Hospital discharge follow-up December 28, 2024 8:22am Fall December 28, 2024 8:2 2am COPD (chronic obstructive pulmonary dise ase) March 28th, 2025 12:38pm Obstructive sleep apnea January 01, 2025 12:38pm Restless legs syndrome January 01, 2025 12:38pm Episode of shaking January 06, 2025 2:47 pm Restless legs syndrome February 01, 2025 10:45am Atypical chest pain February 01, 2025 10: 45am Controlled type 2 diabetes mellitus Apri l 2024 10:45am Recurrent falls February 01, 2025 10: 45am Iron deficiency February 01, 2025 10: 45am Chronic anticoagulation February 04, 2025 1: 30pm Right carotid bruit February 04, 2025 1:30pm Atherosclerotic heart diseas e of [place] coronary artery without angina pectoris February 04, 2025 1:30pm Atrial fibrillation with controlled vent ricular rate February 04, 2025 1:30pm Essential (primary) hypertension February 1:30pm HLD (hyperlipidemia) February 04, 2025 1:30p m Abdominal aortic aneurysm (AAA) February 04, 2025 1:30pm Acute bronchitis February 15, 2025 4:56a m Atrial fibrillation/flutter February 15 4:56am Elevated troponin February 15, 2025 4:56a m Leukocytosis February 15, 2025 4:56a m Muscle twitching February 15, 2025 4:56a m Neuropathy February 15, 2025 4:56a m Obesity (BMI 30.0-34.9) February 15, 2025 4 :56am MARIXA treated with BiPAP February 15, 2025 4: 56am Unsteady gait when walking February 15 4:56am Chronic systolic (congestive) heart fail ure February 15, 2025 4:56am Diastolic CHF, acute on chronic February 4:56am Acute hyperkalemia February 19, 2025 7:52p m Acute kidney injury February 19, 2025 7:52p m Generalized weakness February 19, 2025 7:52 pm Hypoxia February 19, 2025 7:52p m Chief Complaint Admit Date 4 M FU November 30, 2024 2:39pm EXAC OF COPD, INFLUENZA A December 14 11:48am EXAC OF COPD, INFLUENZA A December 14 7:13pm EXAC OF COPD, INFLUENZA A December 15 7:55pm EXAC OF COPD, INFLUENZA A December 16 5:40pm EXAC OF COPD, INFLUENZA A December 17 12:45pm WC FU December 28, 2024 8:2 2am 3 M FU January 01, 2025 12: 38pm PAIN IN LOWER LEGS/CANT GET WARM January 062024 2:47pm chest pain January 29, 2025 2:0 8pm WC FU February 01, 2025 10: 45am S/P [facility] 01/29February 04, 2025 1:30pm INT ORDER February 06, 2025 11:28a m AE OF CHRONIC DIASTOLIC CHF, ELEVATED TR OPONIN, & February 15, 2025 4:56am AE OF CHRONIC DIASTOLIC CHF, ELEVATED TR OPONIN, & February 16, 2025 6:19pm AE OF CHRONIC DIASTOLIC CHF, ELEVATED TR OPONIN, & February 17, 2025 7:14pm AE OF CHRONIC DIASTOLIC CHF, ELEVATED TR OPONIN, & February 18, 2025 2:59pm NARENDRA February 19, 2025 7:52p m NARENDRA February 19, 2025 8:00p m NARENDRA February 20, 2025 2:00p m NARENDRA February 21, 2025 10:29 am NARENDRA February 22, 2025 3:16p m REPATED FALLS. RX HERE February 26, 2025 2: 00pm COUGH, CONCERN FOR INFECTION ON L ARM Ma y 2024 11:20am E-ORDER March 04, 2025 11:24 am Reason for Visit Admit Date Atherosclerotic heart diseas e of [place] coronary artery without angina pectoris November 30, 2024 2:39pm Atrial fibrillation with controlled vent ricular rate November 30, 2024 2:39pm Essential (primary) hypertension uar y 2024 2:39pm HLD (hyperlipidemia) November 30, 2024 2:39pm Abdominal aortic aneurysm (AAA) November 30, 2024 2:39pm Asthma-COPD overlap syndrome December 14, 2024 11:48am (HFpEF) heart failure with preserved eje ction fraction December 28, 2024 8:22am Acute hypoxic respiratory failure December 28, 2024 8:22am Influenza A December 28, 2024 8:2 2am CKD (chronic kidney disease) stage 3, GF R 30-59 ml/min December 28, 2024 8:22am Acute exacerbation of COPD with asthma M arch 2024 8:22am Controlled type 2 diabetes mellitus Rene h 2024 8:22am Abrasion of head December 28, 2024 8:2 2am Hospital discharge follow-up December 28, 2024 8:22am Fall December 28, 2024 8:2 2am COPD (chronic obstructive pulmonary dise ase) January 01, 2025 12:38pm Obstructive sleep apnea January 01, 2025 12:38pm Restless legs syndrome January 01, 2025 12:38pm Episode of shaking January 06, 2025 2:47 pm Restless legs syndrome February 01, 2025 10:45am Atypical chest pain February 01, 2025 10: 45am Controlled type 2 diabetes mellitus Apri l 2024 10:45am Recurrent falls February 01, 2025 10: 45am Iron deficiency February 01, 2025 10: 45am Chronic anticoagulation February 04, 2025 1: 30pm Right carotid bruit February 04, 2025 1:30pm Atherosclerotic heart diseas e of [place] coronary artery without angina pectoris February 04, 2025 1:30pm Atrial fibrillation with controlled vent ricular rate February 04, 2025 1:30pm Essential (primary) hypertension February 1:30pm HLD (hyperlipidemia) February 04, 2025 1:30p m Abdominal aortic aneurysm (AAA) February 04, 2025 1:30pm Acute bronchitis February 15, 2025 4:56a m Atrial fibrillation/flutter February 15 4:56am Chronic systolic (congestive) heart fail ure February 15, 2025 4:56am Diastolic CHF, acute on chronic February 4:56am Elevated troponin February 15, 2025 4:56a m Leukocytosis February 15, 2025 4:56a m Muscle twitching February 15, 2025 4:56a m Neuropathy February 15, 2025 4:56a m Obesity (BMI 30.0-34.9) February 15, 2025 4 :56am MARIXA treated with BiPAP February 15, 2025 4: 56am Unsteady gait when walking February 15 4:56am Acute hyperkalemia February 19, 2025 7:52p m Acute kidney injury February 19, 2025 7:52p m Generalized weakness February 19, 2025 7:52 pm Hypoxia February 19, 2025 7:52p m Acute cough March 04, 2025 11:20 am CHF (congestive heart failure) March 04, 2025 11:20am History of diabetes mellitus March 04, 2 025 11:20am Chronic kidney disease March 04, 2025 11 :20am History of COPD March 04, 2025 11:20 am Chief Complaint Admit Date 4 M FU November 30, 2024 2:39pm EXAC OF COPD, INFLUENZA A December 14 11:48am EXAC OF COPD, INFLUENZA A December 14 7:13pm EXAC OF COPD, INFLUENZA A December 15 7:55pm EXAC OF COPD, INFLUENZA A December 16 5:40pm EXAC OF COPD, INFLUENZA A December 17 12:45pm [facility] FU December 28, 2024 8:2 2am 3 M FU January 01, 2025 12: 38pm PAIN IN LOWER LEGS/CANT GET WARM January 062024 2:47pm chest pain January 29, 2025 2:0 8pm [facility] FU February 01, 2025 10: 45am S/P [facility] 01/29February 04, 2025 1:30pm INT ORDER February 06, 2025 11:28a m AE OF CHRONIC DIASTOLIC CHF, ELEVATED TR OPONIN, & February 15, 2025 4:56am AE OF CHRONIC DIASTOLIC CHF, ELEVATED TR OPONIN, & February 16, 2025 6:19pm AE OF CHRONIC DIASTOLIC CHF, ELEVATED TR OPONIN, & February 17, 2025 7:14pm AE OF CHRONIC DIASTOLIC CHF, ELEVATED TR OPONIN, & February 18, 2025 2:59pm NARENDRA February 19, 2025 7:52p m NARENDRA February 19, 2025 8:00p m NARENDRA February 20, 2025 2:00p m NARENDRA February 21, 2025 10:29 am NARENDRA February 22, 2025 3:16p m REPATED FALLS. RX HERE February 26, 2025 2: 00pm COUGH, CONCERN FOR INFECTION ON L ARM Ma y 2024 11:20am E-ORDER March 04, 2025 11:24 am INFECTION March 04, 2025 6:16p m Reason for Visit Admit Date Atherosclerotic heart diseas e of [place] coronary artery without angina pectoris November 30, 2024 2:39pm Atrial fibrillation with controlled vent ricular rate November 30, 2024 2:39pm Essential (primary) hypertension 2024 2:39pm HLD (hyperlipidemia) November 30, 2024 2:39pm Abdominal aortic aneurysm (AAA) November 30, 2024 2:39pm Asthma-COPD overlap syndrome December 14, 2024 11:48am (HFpEF) heart failure with preserved eje ction fraction December 28, 2024 8:22am Acute hypoxic respiratory failure December 28, 2024 8:22am Influenza A December 28, 2024 8:2 2am CKD (chronic kidney disease) stage 3, GF R 30-59 ml/min December 28, 2024 8:22am Acute exacerbation of COPD with asthma M arch 2024 8:22am Controlled type 2 diabetes mellitus Rene h 2024 8:22am Abrasion of head December 28, 2024 8:2 2am Hospital discharge follow-up December 28, 2024 8:22am Fall December 28, 2024 8:2 2am COPD (chronic obstructive pulmonary dise ase) January 01, 2025 12:38pm Obstructive sleep apnea January 01, 2025 12:38pm Restless legs syndrome January 01, 2025 12:38pm Episode of shaking January 06, 2025 2:47 pm Restless legs syndrome February 01, 2025 10:45am Atypical chest pain February 01, 2025 10: 45am Controlled type 2 diabetes mellitus Apri l 2024 10:45am Recurrent falls February 01, 2025 10: 45am Iron deficiency February 01, 2025 10: 45am Chronic anticoagulation February 04, 2025 1: 30pm Right carotid bruit February 04, 2025 1:30pm Atherosclerotic heart diseas e of [place] coronary artery without angina pectoris February 04, 2025 1:30pm Atrial fibrillation with controlled vent ricular rate February 04, 2025 1:30pm Essential (primary) hypertension February 1:30pm HLD (hyperlipidemia) February 04, 2025 1:30p m Abdominal aortic aneurysm (AAA) February 04, 2025 1:30pm Acute bronchitis February 15, 2025 4:56a m Atrial fibrillation/flutter February 15 4:56am Chronic systolic (congestive) heart fail ure February 15, 2025 4:56am Diastolic CHF, acute on chronic February 4:56am Elevated troponin February 15, 2025 4:56a m Leukocytosis February 15, 2025 4:56a m Muscle twitching February 15, 2025 4:56a m Neuropathy February 15, 2025 4:56a m Obesity (BMI 30.0-34.9) February 15, 2025 4 :56am MARIXA treated with BiPAP February 15, 2025 4: 56am Unsteady gait when walking February 15 4:56am Acute hyperkalemia February 19, 2025 7:52p m Acute kidney injury February 19, 2025 7:52p m Generalized weakness February 19, 2025 7:52 pm Hypoxia February 19, 2025 7:52p m Acute cough March 04, 2025 11:20 am CHF (congestive heart failure) March 04, 2025 11:20am History of diabetes mellitus March 04, 2 025 11:20am Chronic kidney disease March 04, 2025 11 :20am History of COPD March 04, 2025 11:20 am Exertional dyspnea March 04, 2025 6:16p m Hypoxemia March 04, 2025 6:16p m COPD exacerbation March 04, 2025 6:16p m Chief Complaint Admit Date 4 M FU November 30, 2024 2:39pm EXAC OF COPD, INFLUENZA A December 14 11:48am EXAC OF COPD, INFLUENZA A December 14 7:13pm EXAC OF COPD, INFLUENZA A December 15 7:55pm EXAC OF COPD, INFLUENZA A December 16 5:40pm EXAC OF COPD, INFLUENZA A December 17 12:45pm WC FU December 28, 2024 8:2 2am 3 M January 01, 2025 12: 38pm PAIN IN LOWER LEGS/CANT GET WARM January 062024 2:47pm chest pain January 29, 2025 2:0 8pm WC FU February 01, 2025 10: 45am S/P [facility] 01/29February 04, 2025 1:30pm INT ORDER February 06, 2025 11:28a m AE OF CHRONIC DIASTOLIC CHF, ELEVATED TR OPONIN, & February 15, 2025 4:56am AE OF CHRONIC DIASTOLIC CHF, ELEVATED TR OPONIN, & February 16, 2025 6:19pm AE OF CHRONIC DIASTOLIC CHF, ELEVATED TR OPONIN, & February 17, 2025 7:14pm AE OF CHRONIC DIASTOLIC CHF, ELEVATED TR OPONIN, & February 18, 2025 2:59pm NARENDRA February 19, 2025 7:52p m NARENDRA February 19, 2025 8:00p m NARENDRA February 20, 2025 2:00p m NARENDRA February 21, 2025 10:29 am NARENDRA February 22, 2025 3:16p m REPATED FALLS. RX HERE February 26, 2025 2: 00pm COUGH, CONCERN FOR INFECTION ON L ARM Ma y 2024 11:20am E-ORDER March 04, 2025 11:24 am INFECTION March 04, 2025 5:31p m INFECTION March 04, 2025 6:16p m INFECTION March 05, 2025 2:58p m INFECTION March 06, 2025 10:55 am INFECTION March 06, 2025 3:19p m INFECTION March 07, 2025 12:41 pm INFECTION March 07, 2025 1:40p m INFECTION March 08, 2025 3:17p m INFECTION March 09, 2025 8:38a m INFECTION March 09, 2025 4:26p m Reason for Visit Admit Date Atherosclerotic heart diseas e of [place] coronary artery without angina pectoris November 30, 2024 2:39pm Atrial fibrillation with controlled vent ricular rate November 30, 2024 2:39pm Essential (primary) hypertension 2024 2:39pm HLD (hyperlipidemia) November 30, 2024 2:39pm Abdominal aortic aneurysm (AAA) November 30, 2024 2:39pm Asthma-COPD overlap syndrome December 14, 2024 11:48am (HFpEF) heart failure with preserved eje ction fraction December 28, 2024 8:22am Acute hypoxic respiratory failure December 28, 2024 8:22am Influenza A December 28, 2024 8:2 2am CKD (chronic kidney disease) stage 3, GF R 30-59 ml/min December 28, 2024 8:22am Acute exacerbation of COPD with asthma M arch 2024 8:22am Controlled type 2 diabetes mellitus Rene h 2024 8:22am Abrasion of head December 28, 2024 8:2 2am Hospital discharge follow-up December 28, 2024 8:22am Fall December 28, 2024 8:2 2am COPD (chronic obstructive pulmonary dise ase) January 01, 2025 12:38pm Obstructive sleep apnea January 01, 2025 12:38pm Restless legs syndrome January 01, 2025 12:38pm Episode of shaking January 06, 2025 2:47 pm Restless legs syndrome February 01, 2025 10:45am Atypical chest pain February 01, 2025 10: 45am Controlled type 2 diabetes mellitus Apri l 2024 10:45am Recurrent falls February 01, 2025 10: 45am Iron deficiency February 01, 2025 10: 45am Chronic anticoagulation February 04, 2025 1: 30pm Right carotid bruit February 04, 2025 1:30pm Atherosclerotic heart diseas e of [place] coronary artery without angina pectoris February 04, 2025 1:30pm Atrial fibrillation with controlled vent ricular rate February 04, 2025 1:30pm Essential (primary) hypertension February 1:30pm HLD (hyperlipidemia) February 04, 2025 1:30p m Abdominal aortic aneurysm (AAA) February 04, 2025 1:30pm Acute bronchitis February 15, 2025 4:56a m Atrial fibrillation/flutter February 15 4:56am Chronic systolic (congestive) heart fail ure February 15, 2025 4:56am Diastolic CHF, acute on chronic February 4:56am Elevated troponin February 15, 2025 4:56a m Leukocytosis February 15, 2025 4:56a m Muscle twitching February 15, 2025 4:56a m Neuropathy February 15, 2025 4:56a m Obesity (BMI 30.0-34.9) February 15, 2025 4 :56am MARIXA treated with BiPAP February 15, 2025 4: 56am Unsteady gait when walking February 15 4:56am Acute hyperkalemia February 19, 2025 7:52p m Acute kidney injury February 19, 2025 7:52p m Generalized weakness February 19, 2025 7:52 pm Hypoxia February 19, 2025 7:52p m Acute cough March 04, 2025 11:20 am CHF (congestive heart failure) March 04, 2025 11:20am History of diabetes mellitus March 04, 2 025 11:20am Chronic kidney disease March 04, 2025 11 :20am History of COPD March 04, 2025 11:20 am Acute cough March 04, 2025 5:31p m Acute kidney injury March 04, 2025 5:31p m 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 March 04, 2025 5:31pm Anemia March 04, 2025 5:31p m Exertional dyspnea March 04, 2025 5:31p m History of diabetes mellitus March 04 025 5:31pm Hypoxemia March 04, 2025 5:31p m Peripheral edema March 04, 2025 5:31p m Pneumonia March 04, 2025 5:31p m Chronic kidney disease March 04, 2025 5: 31pm COPD exacerbation March 04, 2025 5:31p m History of COPD March 04, 2025 5:31p m Chief Complaint Admit Date 4 M FU November 30, 2024 2:39pm EXAC OF COPD, INFLUENZA A December 14 11:48am EXAC OF COPD, INFLUENZA A December 14 7:13pm EXAC OF COPD, INFLUENZA A December 15 7:55pm EXAC OF COPD, INFLUENZA A December 16 5:40pm EXAC OF COPD, INFLUENZA A December 17 12:45pm [facility] FU December 28, 2024 8:2 2am 3 M FU January 01, 2025 12: 38pm PAIN IN LOWER LEGS/CANT GET WARM January 062024 2:47pm chest pain January 29, 2025 2:0 8pm [facility] FU February 01, 2025 10: 45am S/P [facility] 01/29February 04, 2025 1:30pm INT ORDER February 06, 2025 11:28a m AE OF CHRONIC DIASTOLIC CHF, ELEVATED TR OPONIN, & February 15, 2025 4:56am AE OF CHRONIC DIASTOLIC CHF, ELEVATED TR OPONIN, & February 16, 2025 6:19pm AE OF CHRONIC DIASTOLIC CHF, ELEVATED TR OPONIN, & February 17, 2025 7:14pm AE OF CHRONIC DIASTOLIC CHF, ELEVATED TR OPONIN, & February 18, 2025 2:59pm NARENDRA February 19, 2025 7:52p m NARENDRA February 19, 2025 8:00p m NARENDRA February 20, 2025 2:00p m NARENDRA February 21, 2025 10:29 am NARENDRA February 22, 2025 3:16p m COUGH, CONCERN FOR INFECTION ON L ARM Ma y 2024 11:20am E-ORDER March 04, 2025 11:24 am INFECTION March 04, 2025 5:31p m INFECTION March 04, 2025 6:16p m INFECTION March 05, 2025 2:58p m INFECTION March 06, 2025 10:55 am INFECTION March 06, 2025 3:19p m INFECTION March 07, 2025 12:41 pm INFECTION March 07, 2025 1:40p m INFECTION March 08, 2025 3:17p m INFECTION March 09, 2025 8:38a m INFECTION March 09, 2025 4:26p m [facility] tcu discharge 02/22/25 March 12, 2025 12:40pm c/o Tremors March 15, 2025 12:28 pm REPATED FALLS. RX HERE March 18, 2025 1 :30pm S/P [facility] 03/09/25 March 19, 2025 12:4 7pm Hospital FU March 23, 2025 2:08 pm Reason for Visit Admit Date Atherosclerotic heart diseas e of [place] coronary artery without angina pectoris November 30, 2024 2:39pm Atrial fibrillation with controlled vent ricular rate November 30, 2024 2:39pm Essential (primary) hypertension 2024 2:39pm HLD (hyperlipidemia) November 30, 2024 2:39pm Abdominal aortic aneurysm (AAA) November 30, 2024 2:39pm Asthma-COPD overlap syndrome December 14, 2024 11:48am (HFpEF) heart failure with preserved eje ction fraction December 28, 2024 8:22am Acute hypoxic respiratory failure December 28, 2024 8:22am Influenza A December 28, 2024 8:2 2am CKD (chronic kidney disease) stage 3, GF R 30-59 ml/min December 28, 2024 8:22am Acute exacerbation of COPD with asthma M arch 2024 8:22am Controlled type 2 diabetes mellitus Rene h 2024 8:22am Abrasion of head December 28, 2024 8:2 2am Hospital discharge follow-up December 28, 2024 8:22am Fall December 28, 2024 8:2 2am COPD (chronic obstructive pulmonary dise ase) January 01, 2025 12:38pm Obstructive sleep apnea January 01, 2025 12:38pm Restless legs syndrome January 01, 2025 12:38pm Episode of shaking January 06, 2025 2:47 pm Restless legs syndrome February 01, 2025 10:45am Atypical chest pain February 01, 2025 10: 45am Controlled type 2 diabetes mellitus Apri l 2024 10:45am Recurrent falls February 01, 2025 10: 45am Iron deficiency February 01, 2025 10: 45am Chronic anticoagulation February 04, 2025 1: 30pm Right carotid bruit February 04, 2025 1:30pm Atherosclerotic heart diseas e of [place] coronary artery without angina pectoris February 04, 2025 1:30pm Atrial fibrillation with controlled vent ricular rate February 04, 2025 1:30pm Essential (primary) hypertension February 1:30pm HLD (hyperlipidemia) February 04, 2025 1:30p m Abdominal aortic aneurysm (AAA) February 04, 2025 1:30pm Acute bronchitis February 15, 2025 4:56a m Atrial fibrillation/flutter February 15 4:56am Chronic systolic (congestive) heart fail ure February 15, 2025 4:56am Diastolic CHF, acute on chronic February 4:56am Elevated troponin February 15, 2025 4:56a m Leukocytosis February 15, 2025 4:56a m Muscle twitching February 15, 2025 4:56a m Neuropathy February 15, 2025 4:56a m Obesity (BMI 30.0-34.9) February 15, 2025 4 :56am MARIXA treated with BiPAP February 15, 2025 4: 56am Unsteady gait when walking February 15 4:56am Acute hyperkalemia February 19, 2025 7:52p m Generalized weakness February 19, 2025 7:52 pm Hypoxia February 19, 2025 7:52p m Acute kidney injury February 19, 2025 7:52p m CHF (congestive heart failure) March 04, 2025 11:20am Chronic kidney disease March 04, 2025 11 :20am Acute cough March 04, 2025 11:20 am History of COPD March 04, 2025 11:20 am History of diabetes mellitus March 04, 2 025 11:20am Chronic kidney disease March 04, 2025 5: 31pm Acute cough March 04, 2025 5:31p m Acute kidney injury March 04, 2025 5:31p m 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 March 04, 2025 5:31pm COPD exacerbation March 04, 2025 5:31p m Exertional dyspnea March 04, 2025 5:31p m Hypoxemia March 04, 2025 5:31p m Pneumonia March 04, 2025 5:31p m Anemia March 04, 2025 5:31p m History of COPD March 04, 2025 5:31p m History of diabetes mellitus March 04, 025 5:31pm Peripheral edema March 04, 2025 5:31p m CHF (congestive heart failure) March 12, 2025 12:40pm DM2 (diabetes mellitus, type 2) March 12:40pm Pneumonia March 12, 2025 12:40 pm Tremor March 15, 2025 12:28 pm CHF (congestive heart failure) March 12:47pm Atherosclerotic heart diseas e of [place] coronary artery without angina pectoris March 19, 2025 12:47pm Atrial fibrillation with controlled vent ricular rate March 19, 2025 12:47pm Essential (primary) hypertension March 192024 12:47pm HLD (hyperlipidemia) March 19, 2025 12: 47pm Abdominal aortic aneurysm (AAA) March 12:47pm Obstructive sleep apnea March 23, 2025 2:08pm Restless legs syndrome March 23, 2025 2 :08pm Asthma-COPD overlap syndrome March 23, 2025 2:08pm Chief Complaint Admit Date chest pain January 29, 2025 2:0 8pm [facility] FU February 01, 2025 10: 45am S/P WC 01/29February 04, 2025 1:30pm INT ORDER February 06, 2025 11:28a m AE OF CHRONIC DIASTOLIC CHF, ELEVATED TR OPONIN, & February 15, 2025 4:56am AE OF CHRONIC DIASTOLIC CHF, ELEVATED TR OPONIN, & February 16, 2025 6:19pm AE OF CHRONIC DIASTOLIC CHF, ELEVATED TR OPONIN, & February 17, 2025 7:14pm AE OF CHRONIC DIASTOLIC CHF, ELEVATED TR OPONIN, & February 18, 2025 2:59pm NARENDRA February 19, 2025 7:52p m NARENDRA February 19, 2025 8:00p m NARENDRA February 20, 2025 2:00p m NARENDRA February 21, 2025 10:29 am NARENDRA February 22, 2025 3:16p m COUGH, CONCERN FOR INFECTION ON L ARM Ma y 2024 11:20am E-ORDER March 04, 2025 11:24 am INFECTION March 04, 2025 5:31p m INFECTION March 04, 2025 6:16p m INFECTION March 05, 2025 2:58p m INFECTION March 06, 2025 10:55 am INFECTION March 06, 2025 3:19p m INFECTION March 07, 2025 12:41 pm INFECTION March 07, 2025 1:40p m INFECTION March 08, 2025 3:17p m INFECTION March 09, 2025 8:38a m INFECTION March 09, 2025 4:26p m [facility] tcu discharge 02/22/25 March 12, 2025 12:40pm c/o Tremors March 15, 2025 12:28 pm REPATED FALLS. RX HERE March 18, 2025 1 :30pm S/P [facility] 03/09/25 March 19, 2025 12:4 7pm Hospital FU March 23, 2025 2:08 pm ACUTE-MEDICATION QUESTIONS, BODY SHAKES April 05, 2025 10:40am EORDER April 05, 2025 2:02 pm 6 M FU April 27, 2025 8:27 am LEFT WRIST/HAND May 03, 2025 2:29 pm Room 4 May 03, 2025 2:38 pm 5 m fu May 19, 2025 1: 06pm Reason for Visit Admit Date Restless legs syndrome February 01, 2025 10:45am Atypical chest pain February 01, 2025 10: 45am Controlled type 2 diabetes mellitus Apri l 2024 10:45am Recurrent falls February 01, 2025 10: 45am Iron deficiency February 01, 2025 10: 45am Right carotid bruit February 04, 2025 1:30pm Atherosclerotic heart diseas e of [place] coronary artery without angina pectoris February 04, 2025 1:30pm Atrial fibrillation with controlled vent ricular rate February 04, 2025 1:30pm Essential (primary) hypertension February 1:30pm HLD (hyperlipidemia) February 04, 2025 1:30p m Abdominal aortic aneurysm (AAA) February 04, 2025 1:30pm Chronic anticoagulation February 04, 2025 1: 30pm Acute bronchitis February 15, 2025 4:56a m Atrial fibrillation/flutter February 15 4:56am Chronic systolic (congestive) heart fail ure February 15, 2025 4:56am Diastolic CHF, acute on chronic February 4:56am Elevated troponin February 15, 2025 4:56a m Leukocytosis February 15, 2025 4:56a m Muscle twitching February 15, 2025 4:56a m Neuropathy February 15, 2025 4:56a m Obesity (BMI 30.0-34.9) February 15, 2025 4 :56am MARIXA treated with BiPAP February 15, 2025 4: 56am Unsteady gait when walking February 15 4:56am Generalized weakness February 19, 2025 7:52 pm Acute hyperkalemia February 19, 2025 7:52p m Acute kidney injury February 19, 2025 7:52p m Hypoxia February 19, 2025 7:52p m Acute cough March 04, 2025 11:20 am History of COPD March 04, 2025 11:20 am History of diabetes mellitus March 04, 2 025 11:20am CHF (congestive heart failure) March 04, 2025 11:20am Chronic kidney disease March 04, 2025 11 :20am Acute cough March 04, 2025 5:31p m Acute kidney injury March 04, 2025 5:31p m 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 March 04, 2025 5:31pm COPD exacerbation March 04, 2025 5:31p m Exertional dyspnea March 04, 2025 5:31p m Hypoxemia March 04, 2025 5:31p m Pneumonia March 04, 2025 5:31p m Anemia March 04, 2025 5:31p m History of COPD March 04, 2025 5:31p m History of diabetes mellitus March 04 025 5:31pm Peripheral edema March 04, 2025 5:31p m Chronic kidney disease March 04, 2025 5: 31pm DM2 (diabetes mellitus, type 2) March 12:40pm Pneumonia March 12, 2025 12:40 pm CHF (congestive heart failure) March 12, 2025 12:40pm Tremor March 15, 2025 12:28 pm Atherosclerotic heart diseas e of [place] coronary artery without angina pectoris March 19, 2025 12:47pm Atrial fibrillation with controlled vent ricular rate March 19, 2025 12:47pm Essential (primary) hypertension March 192024 12:47pm HLD (hyperlipidemia) March 19, 2025 12: 47pm Abdominal aortic aneurysm (AAA) March 12:47pm CHF (congestive heart failure) March 12:47pm Asthma-COPD overlap syndrome March 23, 2025 2:08pm Obstructive sleep apnea March 23, 2025 2:08pm Restless legs syndrome March 23, 2025 2 :08pm Anemia April 05, 2025 10:4 0am Tremor April 05, 2025 10:4 0am Chronic kidney disease April 05, 2025 1 0:40am Lower back pain April 27, 2025 8:27 am (HFpEF) heart failure with preserved eje ction fraction April 27, 2025 8:27am COPD (chronic obstructive pulmonary dise ase) April 27, 2025 8:27am Essential (primary) hypertension April 272024 8:27am Obstructive sleep apnea April 27, 2025 8:27am Peripheral vascular disease of extremity with claudication April 27, 2025 8:27am Restless legs syndrome April 27, 2025 8 :27am Atrial fibrillation April 27, 2025 8:27 am Screening for depression April 27, 2025 8:27am Concern about memory April 27, 2025 8:2 7am Thyroid nodule April 27, 2025 8:27 am CKD (chronic kidney disease) stage 3, GF R 30-59 ml/min April 27, 2025 8:27am Controlled type 2 diabetes mellitus April 27, 2025 8:27am Recurrent falls April 27, 2025 8:27 am Left wrist pain April 27, 2025 8:27 am Left wrist pain May 03, 2025 2:29 pm Trigger thumb, left thumb May 03 2:29pm Asthma-COPD overlap syndrome May 1:06pm Obstructive sleep apnea May 19 1:06pm Restless legs syndrome May 19, 2025 1:06pm Chief Complaint Admit Date [facility] FU February 01, 2025 10: 45am S/P [facility] 01/29February 04, 2025 1:30pm INT ORDER February 06, 2025 11:28a m AE OF CHRONIC DIASTOLIC CHF, ELEVATED TR OPONIN, & February 15, 2025 4:56am AE OF CHRONIC DIASTOLIC CHF, ELEVATED TR OPONIN, & February 16, 2025 6:19pm AE OF CHRONIC DIASTOLIC CHF, ELEVATED TR OPONIN, & February 17, 2025 7:14pm AE OF CHRONIC DIASTOLIC CHF, ELEVATED TR OPONIN, & February 18, 2025 2:59pm NARENDRA February 19, 2025 7:52p m NARENDRA February 19, 2025 8:00p m NARENDRA February 20, 2025 2:00p m NARENDRA February 21, 2025 10:29 am NARENDRA February 22, 2025 3:16p m COUGH, CONCERN FOR INFECTION ON L ARM Ma y 2024 11:20am E-ORDER March 04, 2025 11:24 am INFECTION March 04, 2025 5:31p m INFECTION March 04, 2025 6:16p m INFECTION March 05, 2025 2:58p m INFECTION March 06, 2025 10:55 am INFECTION March 06, 2025 3:19p m INFECTION March 07, 2025 12:41 pm INFECTION March 07, 2025 1:40p m INFECTION March 08, 2025 3:17p m INFECTION March 09, 2025 8:38a m INFECTION March 09, 2025 4:26p m [facility] tcu discharge 02/22/25 March 12, 2025 12:40pm c/o Tremors March 15, 2025 12:28 pm REPATED FALLS. RX HERE March 18, 2025 1 :30pm S/P [facility] 03/09/25 March 19, 2025 12:4 7pm Hospital FU March 23, 2025 2:08 pm ACUTE-MEDICATION QUESTIONS, BODY SHAKES April 05, 2025 10:40am EORDER April 05, 2025 2:02 pm 6 M FU April 27, 2025 8:27 am LEFT WRIST/HAND May 03, 2025 2:29 pm Room 4 May 03, 2025 2:38 pm 5 m fu May 19, 2025 1: 06pm J44.9 - Chronic obstructive pulmonary di sease, uns May 28, 2025 9:20am 6 M FU May 31, 2025 12 :48pm Reason for Visit Admit Date Restless legs syndrome February 01, 2025 10:45am Atypical chest pain February 01, 2025 10: 45am Controlled type 2 diabetes mellitus Apri l 2024 10:45am Recurrent falls February 01, 2025 10: 45am Iron deficiency February 01, 2025 10: 45am Right carotid bruit February 04, 2025 1:30pm Atherosclerotic heart diseas e of [place] coronary artery without angina pectoris February 04, 2025 1:30pm Atrial fibrillation with controlled vent ricular rate February 04, 2025 1:30pm Essential (primary) hypertension February 1:30pm HLD (hyperlipidemia) February 04, 2025 1:30p m Abdominal aortic aneurysm (AAA) February 04, 2025 1:30pm Chronic anticoagulation February 04, 2025 1: 30pm Acute bronchitis February 15, 2025 4:56a m Atrial fibrillation/flutter February 15 4:56am Chronic systolic (congestive) heart fail ure February 15, 2025 4:56am Diastolic CHF, acute on chronic February 4:56am Elevated troponin February 15, 2025 4:56a m Leukocytosis February 15, 2025 4:56a m Muscle twitching February 15, 2025 4:56a m Neuropathy February 15, 2025 4:56a m Obesity (BMI 30.0-34.9) February 15, 2025 4 :56am MARIXA treated with BiPAP February 15, 2025 4: 56am Unsteady gait when walking February 15 4:56am Generalized weakness February 19, 2025 7:52 pm Acute hyperkalemia February 19, 2025 7:52p m Acute kidney injury February 19, 2025 7:52p m Hypoxia February 19, 2025 7:52p m CHF (congestive heart failure) March 04, 2025 11:20am Acute cough March 04, 2025 11:20 am History of COPD March 04, 2025 11:20 am History of diabetes mellitus March 04, 2 025 11:20am Chronic kidney disease March 04, 2025 11 :20am Acute cough March 04, 2025 5:31p m Acute kidney injury March 04, 2025 5:31p m 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 March 04, 2025 5:31pm COPD exacerbation March 04, 2025 5:31p m Exertional dyspnea March 04, 2025 5:31p m Hypoxemia March 04, 2025 5:31p m Pneumonia March 04, 2025 5:31p m Anemia March 04, 2025 5:31p m History of COPD March 04, 2025 5:31p m History of diabetes mellitus March 04 025 5:31pm Peripheral edema March 04, 2025 5:31p m Chronic kidney disease March 04, 2025 5: 31pm DM2 (diabetes mellitus, type 2) March 12:40pm CHF (congestive heart failure) March 12, 2025 12:40pm Pneumonia March 12, 2025 12:40 pm Tremor March 15, 2025 12:28 pm Atherosclerotic heart diseas e of [place] coronary artery without angina pectoris March 19, 2025 12:47pm Atrial fibrillation with controlled vent ricular rate March 19, 2025 12:47pm CHF (congestive heart failure) March 12:47pm Essential (primary) hypertension March 192024 12:47pm HLD (hyperlipidemia) March 19, 2025 12: 47pm Abdominal aortic aneurysm (AAA) March 12:47pm Asthma-COPD overlap syndrome March 23, 2025 2:08pm Obstructive sleep apnea March 23, 2025 2:08pm Restless legs syndrome March 23, 2025 2 :08pm Anemia April 05, 2025 10:4 0am Tremor April 05, 2025 10:4 0am Chronic kidney disease April 05, 2025 1 0:40am Lower back pain April 27, 2025 8:27 am (HFpEF) heart failure with preserved eje ction fraction April 27, 2025 8:27am COPD (chronic obstructive pulmonary dise ase) April 27, 2025 8:27am Essential (primary) hypertension April 272024 8:27am Obstructive sleep apnea April 27, 2025 8:27am Peripheral vascular disease of extremity with claudication April 27, 2025 8:27am Restless legs syndrome April 27, 2025 8 :27am Atrial fibrillation April 27, 2025 8:27 am Screening for depression April 27, 2025 8:27am Concern about memory April 27, 2025 8:2 7am Thyroid nodule April 27, 2025 8:27 am CKD (chronic kidney disease) stage 3, GF R 30-59 ml/min April 27, 2025 8:27am Controlled type 2 diabetes mellitus April 27, 2025 8:27am Recurrent falls April 27, 2025 8:27 am Left wrist pain April 27, 2025 8:27 am Left wrist pain May 03, 2025 2:29 pm Trigger thumb, left thumb May 03 2:29pm Asthma-COPD overlap syndrome May 1:06pm Obstructive sleep apnea May 19 1:06pm Restless legs syndrome May 19, 2025 1:06pm Atherosclerotic heart diseas e of [place] coronary artery without angina pectoris May 31, 2025 12:48pm Atrial fibrillation with controlled vent ricular rate May 31, 2025 12:48pm CHF (congestive heart failure) May [id number] 12:48pm Essential (primary) hypertension May 31, 2025 12:48pm HLD (hyperlipidemia) May 31, 2025 1 2:48pm Abdominal aortic aneurysm (AAA) May 082024 12:48pm Chief Complaint Admit Date S/P [facility] 01/29February 04, 2025 1:30pm INT ORDER February 06, 2025 11:28a m AE OF CHRONIC DIASTOLIC CHF, ELEVATED TR OPONIN, & February 15, 2025 4:56am AE OF CHRONIC DIASTOLIC CHF, ELEVATED TR OPONIN, & February 16, 2025 6:19pm AE OF CHRONIC DIASTOLIC CHF, ELEVATED TR OPONIN, & February 17, 2025 7:14pm AE OF CHRONIC DIASTOLIC CHF, ELEVATED TR OPONIN, & February 18, 2025 2:59pm NARENDRA February 19, 2025 7:52p m NARENDRA February 19, 2025 8:00p m NARENDRA February 20, 2025 2:00p m NARENDRA February 21, 2025 10:29 am NARENDRA February 22, 2025 3:16p m COUGH, CONCERN FOR INFECTION ON L ARM Ma y 2024 11:20am E-ORDER March 04, 2025 11:24 am INFECTION March 04, 2025 5:31p m INFECTION March 04, 2025 6:16p m INFECTION March 05, 2025 2:58p m INFECTION March 06, 2025 10:55 am INFECTION March 06, 2025 3:19p m INFECTION March 07, 2025 12:41 pm INFECTION March 07, 2025 1:40p m INFECTION March 08, 2025 3:17p m INFECTION March 09, 2025 8:38a m INFECTION March 09, 2025 4:26p m [facility] tcu discharge 02/22/25 March 12, 2025 12:40pm c/o Tremors March 15, 2025 12:28 pm REPATED FALLS. RX HERE March 18, 2025 1 :30pm S/P [facility] 03/09/25 March 19, 2025 12:4 7pm Hospital FU March 23, 2025 2:08 pm ACUTE-MEDICATION QUESTIONS, BODY SHAKES April 05, 2025 10:40am EORDER April 05, 2025 2:02 pm 6 M FU April 27, 2025 8:27 am LEFT WRIST/HAND May 03, 2025 2:29 pm Room 4 May 03, 2025 2:38 pm 5 m fu May 19, 2025 1: 06pm J44.9 - Chronic obstructive pulmonary di sease, uns May 28, 2025 9:20am 6 M FU May 31, 2025 12 :48pm Reason for Visit Admit Date Right carotid bruit February 04, 2025 1:30pm Atherosclerotic heart diseas e of [place] coronary artery without angina pectoris February 04, 2025 1:30pm Atrial fibrillation with controlled vent ricular rate February 04, 2025 1:30pm Essential (primary) hypertension February 1:30pm HLD (hyperlipidemia) February 04, 2025 1:30p m Abdominal aortic aneurysm (AAA) February 04, 2025 1:30pm Chronic anticoagulation February 04, 2025 1: 30pm Acute bronchitis February 15, 2025 4:56a m Atrial fibrillation/flutter February 15 4:56am Chronic systolic (congestive) heart fail ure February 15, 2025 4:56am Diastolic CHF, acute on chronic February 4:56am Elevated troponin February 15, 2025 4:56a m Leukocytosis February 15, 2025 4:56a m Muscle twitching February 15, 2025 4:56a m Neuropathy February 15, 2025 4:56a m Obesity (BMI 30.0-34.9) February 15, 2025 4 :56am MARIXA treated with BiPAP February 15, 2025 4: 56am Unsteady gait when walking February 15 4:56am Generalized weakness February 19, 2025 7:52 pm Acute hyperkalemia February 19, 2025 7:52p m Acute kidney injury February 19, 2025 7:52p m Hypoxia February 19, 2025 7:52p m CHF (congestive heart failure) March 04, 2025 11:20am Acute cough March 04, 2025 11:20 am History of COPD March 04, 2025 11:20 am History of diabetes mellitus March 04, 2 025 11:20am Chronic kidney disease March 04, 2025 11 :20am Acute cough March 04, 2025 5:31p m Acute kidney injury March 04, 2025 5:31p m 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 March 04, 2025 5:31pm COPD exacerbation March 04, 2025 5:31p m Exertional dyspnea March 04, 2025 5:31p m Hypoxemia March 04, 2025 5:31p m Pneumonia March 04, 2025 5:31p m Anemia March 04, 2025 5:31p m History of COPD March 04, 2025 5:31p m History of diabetes mellitus March 04, 2 025 5:31pm Peripheral edema March 04, 2025 5:31p m Chronic kidney disease March 04, 2025 5: 31pm DM2 (diabetes mellitus, type 2) March 12:40pm CHF (congestive heart failure) March 12, 2025 12:40pm Pneumonia March 12, 2025 12:40 pm Tremor March 15, 2025 12:28 pm Atherosclerotic heart diseas e of [place] coronary artery without angina pectoris March 19, 2025 12:47pm Atrial fibrillation with controlled vent ricular rate March 19, 2025 12:47pm CHF (congestive heart failure) March 12:47pm Essential (primary) hypertension March 192024 12:47pm HLD (hyperlipidemia) March 19, 2025 12: 47pm Abdominal aortic aneurysm (AAA) March 12:47pm Asthma-COPD overlap syndrome March 23, 2025 2:08pm Obstructive sleep apnea March 23, 2025 2:08pm Restless legs syndrome March 23, 2025 2 :08pm Anemia April 05, 2025 10:4 0am Tremor April 05, 2025 10:4 0am Chronic kidney disease April 05, 2025 1 0:40am Lower back pain April 27, 2025 8:27 am (HFpEF) heart failure with preserved eje ction fraction April 27, 2025 8:27am COPD (chronic obstructive pulmonary dise ase) April 27, 2025 8:27am Essential (primary) hypertension April 272024 8:27am Obstructive sleep apnea April 27, 2025 8:27am Peripheral vascular disease of extremity with claudication April 27, 2025 8:27am Restless legs syndrome April 27, 2025 8 :27am Atrial fibrillation April 27, 2025 8:27 am Screening for depression April 27, 2025 8:27am Concern about memory April 27, 2025 8:2 7am Thyroid nodule April 27, 2025 8:27 am CKD (chronic kidney disease) stage 3, GF R 30-59 ml/min April 27, 2025 8:27am Controlled type 2 diabetes mellitus April 27, 2025 8:27am Recurrent falls April 27, 2025 8:27 am Left wrist pain April 27, 2025 8:27 am Left wrist pain May 03, 2025 2:29 pm Trigger thumb, left thumb May 03 2:29pm Asthma-COPD overlap syndrome May 1:06pm Obstructive sleep apnea May 19 1:06pm Restless legs syndrome May 19, 2025 1:06pm Atherosclerotic heart diseas e of [place] coronary artery without angina pectoris May 31, 2025 12:48pm Atrial fibrillation with controlled vent ricular rate May 31, 2025 12:48pm CHF (congestive heart failure) May [id number] 12:48pm Essential (primary) hypertension May 31, 2025 12:48pm HLD (hyperlipidemia) May 31, 2025 1 2:48pm Abdominal aortic aneurysm (AAA) May 082024 12:48pm Family History No Family History Records Found Relationship Condition Age at Onset Recorded Date/T ashanti father Diabetes mellitus Unknown Malignant neoplasm Unknown Relationship Condition Age at Onset Recorded Date/T ashanti father Diabetes mellitus Unknown Malignant neoplasm Unknown mother Dementia Unknown Relationship Condition Age at Onset Recorded Date/T ashanti father Diabetes mellitus Unknown Malignant neoplasm Unknown mother Dementia Unknown brother Parkinson's disease Unknown brother Malignant neoplasm Unknown Relationship Condition Age at Onset Recorded Date/T ashanti father Diabetes mellitus Unknown Malignant neoplasm Unknown mother Dementia Unknown brother Parkinson's disease Unknown brother Malignant neoplasm Unknown History of vascular surgery Unknown Reason for Referral Specialty Diagnoses / Procedures Referred By Naveen herrera Referred To Contact Nephrology Diagnoses Stage 3a chronic kidney disease (HCC) Procedures CONSULT TO NEPHROLOGY OFFICE/OUTPATIENT [facility] 60-74 MINUTES Samantha Aguirre, LSAT INSTRUCTOR.MANAGER VEHICLE [address] [place] [address] Referral ID Status Reason Start Date Expiration Date Visits Requested Visits Authorized [id number] Pending Review PCP Requested Referral 02/07/2022 02/07/2023 1 1 Specialty Diagnoses / Procedures Referred By Naveen herrera Referred To Contact General Surgery Diagnoses Chronic idiopathic constipation Altered bowel habits Procedures CONSULT TO GENERAL SURGERY OFFICE/OUTPATIENT [facility] 60-74 MINUTES Dominique Reese, LSAT INSTRUCTOR.DIRECTOR OF STRATEGY & MOBILE [address] [place] [address] Referral ID Status Reason Start Date Expiration Date Visits Requested Visits Authorized [id number] Pending Review PCP Requested Referral 04/12/2022 04/12/2023 1 1 Specialty Diagnoses / Procedures Referred By Naveen herrera Referred To Contact Gastroenterology Diagnoses Chronic idiopathic constipation Altered bowel habits Procedures CONSULT TO GASTROENTEROLOGY OFFICE/OUTPATIENT [facility] 60-74 MINUTES Dominique Reese, LSAT INSTRUCTOR.DIRECTOR OF STRATEGY & MOBILE [address] [place] [address] Referral ID Status Reason Start Date Expiration Date Visits Requested Visits Authorized [id number] Pending Review PCP Requested Referral 04/12/2022 04/12/2023 1 1 Specialty Diagnoses / Procedures Referred By Contac t Referred To Contact CT IMAGING Diagnoses Peripheral vascular disease (HCC) Procedures CTA ABD/PEL LOWER EXTREM W IVCON CTA ABDL AORTA&BI ILIOFEM W/CONTRAST&POSTP Darryl Mallory, DO [address] [place] [address] [facility] [place] [id number] Referral ID Status Reason Start Date Expiration Date Visits Requested Visits Authorized [id number] Pending Review Auto-Generat ed Referral 05/21/2023 06/12/2024 1 1 Summary Purpose Additional Source Comments Source Comments (unrecognize d section and content) In the event this informatio n is protected by the Federal Confidentiality of Alcohol and Drug Abuse Patient Records regulations: The Federal rules restrict any use of the information to criminally investigate or prosecute any alcohol or drug abuse patient.[facility] CenterIn the event this information is protected by the Federal Confidentiality of Alcohol and Drug Abuse Patient Records regulations: The Federal rules restrict any use of the information to criminally investigate or prosecute any alcohol or drug abuse patient.[facility] CenterIn the event this information is protected by the Federal Confidentiality of Alcohol and Drug Abuse Patient Records regulations: The Federal rules restrict any use of the information to criminally investigate or prosecute any alcohol or drug abuse patient.[facility] CenterIn the event this information is protected by the Federal Confidentiality of Alcohol and Drug Abuse Patient Records regulations: The Federal rules restrict any use of the information to criminally investigate or prosecute any alcohol or drug abuse patient.[facility] CenterIn the event this information is protected by the Federal Confidentiality of Alcohol and Drug Abuse Patient Records regulations: The Federal rules restrict any use of the information to criminally investigate or prosecute any alcohol or drug abuse patient.[facility] CenterIn the event this information is protected by the Federal Confidentiality of Alcohol and Drug Abuse Patient Records regulations: The Federal rules restrict any use of the information to criminally investigate or prosecute any alcohol or drug abuse patient.[facility] CenterIn the event this information is protected by the Federal Confidentiality of Alcohol and Drug Abuse Patient Records regulations: The Federal rules restrict any use of the information to criminally investigate or prosecute any alcohol or drug abuse patient.[facility] CenterIn the event this information is protected by the Federal Confidentiality of Alcohol and Drug Abuse Patient Records regulations: The Federal rules restrict any use of the information to criminally investigate or prosecute any alcohol or drug abuse patient.[facility] CenterIn the event this information is protected by the Federal Confidentiality of Alcohol and Drug Abuse Patient Records regulations: The Federal rules restrict any use of the information to criminally investigate or prosecute any alcohol or drug abuse patient.[facility] CenterIn the event this information is protected by the Federal Confidentiality of Alcohol and Drug Abuse Patient Records regulations: The Federal rules restrict any use of the information to criminally investigate or prosecute any alcohol or drug abuse patient.[facility] CenterIn the event this information is protected by the Federal Confidentiality of Alcohol and Drug Abuse Patient Records regulations: The Federal rules restrict any use of the information to criminally investigate or prosecute any alcohol or drug abuse patient.[facility] CenterIn the event this information is protected by the Federal Confidentiality of Alcohol and Drug Abuse Patient Records regulations: The Federal rules restrict any use of the information to criminally investigate or prosecute any alcohol or drug abuse patient.[facility] CenterIn the event this information is protected by the Federal Confidentiality of Alcohol and Drug Abuse Patient Records regulations: The Federal rules restrict any use of the information to criminally investigate or prosecute any alcohol or drug abuse patient.[facility] CenterIn the event this information is protected by the Federal Confidentiality of Alcohol and Drug Abuse Patient Records regulations: The Federal rules restrict any use of the information to criminally investigate or prosecute any alcohol or drug abuse patient.[facility] CenterIn the event this information is protected by the Federal Confidentiality of Alcohol and Drug Abuse Patient Records regulations: The Federal rules restrict any use of the information to criminally investigate or prosecute any alcohol or drug abuse patient.[facility] CenterIn the event this information is protected by the Federal Confidentiality of Alcohol and Drug Abuse Patient Records regulations: The Federal rules restrict any use of the information to criminally investigate or prosecute any alcohol or drug abuse patient.[facility] CenterIn the event this information is protected by the Federal Confidentiality of Alcohol and Drug Abuse Patient Records regulations: The Federal rules restrict any use of the information to criminally investigate or prosecute any alcohol or drug abuse patient.[facility] CenterIn the event this information is protected by the Federal Confidentiality of Alcohol and Drug Abuse Patient Records regulations: The Federal rules restrict any use of the information to criminally investigate or prosecute any alcohol or drug abuse patient.[facility] CenterIn the event this information is protected by the Federal Confidentiality of Alcohol and Drug Abuse Patient Records regulations: The Federal rules restrict any use of the information to criminally investigate or prosecute any alcohol or drug abuse patient.[facility] CenterIn the event this information is protected by the Federal Confidentiality of Alcohol and Drug Abuse Patient Records regulations: The Federal rules restrict any use of the information to criminally investigate or prosecute any alcohol or drug abuse patient.[facility] CenterIn the event this information is protected by the Federal Confidentiality of Alcohol and Drug Abuse Patient Records regulations: The Federal rules restrict any use of the information to criminally investigate or prosecute any alcohol or drug abuse patient.[facility] CenterIn the event this information is protected by the Federal Confidentiality of Alcohol and Drug Abuse Patient Records regulations: The Federal rules restrict any use of the information to criminally investigate or prosecute any alcohol or drug abuse patient.[facility] CenterIn the event this information is protected by the Federal Confidentiality of Alcohol and Drug Abuse Patient Records regulations: The Federal rules restrict any use of the information to criminally investigate or prosecute any alcohol or drug abuse patient.[facility] CenterIn the event this information is protected by the Federal Confidentiality of Alcohol and Drug Abuse Patient Records regulations: The Federal rules restrict any use of the information to criminally investigate or prosecute any alcohol or drug abuse patient.[facility] CenterIn the event this information is protected by the Federal Confidentiality of Alcohol and Drug Abuse Patient Records regulations: The Federal rules restrict any use of the information to criminally investigate or prosecute any alcohol or drug abuse patient.[facility] CenterIn the event this information is protected by the Federal Confidentiality of Alcohol and Drug Abuse Patient Records regulations: The Federal rules restrict any use of the information to criminally investigate or prosecute any alcohol or drug abuse patient.[facility] CenterIn the event this information is protected by the Federal Confidentiality of Alcohol and Drug Abuse Patient Records regulations: The Federal rules restrict any use of the information to criminally investigate or prosecute any alcohol or drug abuse patient.[facility] CenterIn the event this information is protected by the Federal Confidentiality of Alcohol and Drug Abuse Patient Records regulations: The Federal rules restrict any use of the information to criminally investigate or prosecute any alcohol or drug abuse patient.[facility] CenterIn the event this information is protected by the Federal Confidentiality of Alcohol and Drug Abuse Patient Records regulations: The Federal rules restrict any use of the information to criminally investigate or prosecute any alcohol or drug abuse patient.[facility] CenterIn the event this information is protected by the Federal Confidentiality of Alcohol and Drug Abuse Patient Records regulations: The Federal rules restrict any use of the information to criminally investigate or prosecute any alcohol or drug abuse patient.[facility] CenterIn the event this information is protected by the Federal Confidentiality of Alcohol and Drug Abuse Patient Records regulations: The Federal rules restrict any use of the information to criminally investigate or prosecute any alcohol or drug abuse patient.[facility] CenterIn the event this information is protected by the Federal Confidentiality of Alcohol and Drug Abuse Patient Records regulations: The Federal rules restrict any use of the information to criminally investigate or prosecute any alcohol or drug abuse patient.[facility] CenterIn the event this information is protected by the Federal Confidentiality of Alcohol and Drug Abuse Patient Records regulations: The Federal rules restrict any use of the information to criminally investigate or prosecute any alcohol or drug abuse patient.[facility] CenterIn the event this information is protected by the Federal Confidentiality of Alcohol and Drug Abuse Patient Records regulations: The Federal rules restrict any use of the information to criminally investigate or prosecute any alcohol or drug abuse patient.[facility] CenterIn the event this information is protected by the Federal Confidentiality of Alcohol and Drug Abuse Patient Records regulations: The Federal rules restrict any use of the information to criminally investigate or prosecute any alcohol or drug abuse patient.[facility] CenterIn the event this information is protected by the Federal Confidentiality of Alcohol and Drug Abuse Patient Records regulations: The Federal rules restrict any use of the information to criminally investigate or prosecute any alcohol or drug abuse patient.[facility] CenterIn the event this information is protected by the Federal Confidentiality of Alcohol and Drug Abuse Patient Records regulations: The Federal rules restrict any use of the information to criminally investigate or prosecute any alcohol or drug abuse patient.[facility] CenterIn the event this information is protected by the Federal Confidentiality of Alcohol and Drug Abuse Patient Records regulations: The Federal rules restrict any use of the information to criminally investigate or prosecute any alcohol or drug abuse patient.[facility] CenterIn the event this information is protected by the Federal Confidentiality of Alcohol and Drug Abuse Patient Records regulations: The Federal rules restrict any use of the information to criminally investigate or prosecute any alcohol or drug abuse patient.[facility] CenterIn the event this information is protected by the Federal Confidentiality of Alcohol and Drug Abuse Patient Records regulations: The Federal rules restrict any use of the information to criminally investigate or prosecute any alcohol or drug abuse patient.[facility] CenterIn the event this information is protected by the Federal Confidentiality of Alcohol and Drug Abuse Patient Records regulations: The Federal rules restrict any use of the information to criminally investigate or prosecute any alcohol or drug abuse patient.[facility] Reason for Visit (unrecogniz ed section and content) Reason Comments Appointment testing Reason Comments Established Patient Reason Comments Established Patient Nail Care Reason Comments F/U 6 months Reason Comments Hospital F/U Reason Comments Hospital F/U constipation Reason Comments Consult Constipation Specialty Diagnoses / Procedures Referred By Contac t Referred To Contact General Surgery Diagnoses Chronic idiopathic constipation Altered bowel habits Procedures CONSULT TO GENERAL SURGERY OFFICE/OUTPATIENT NEW HIGH MDM 60-74 MINUTES Dominique Reese, LSAT INSTRUCTOR.DIRECTOR OF STRATEGY & MOBILE [address] [place] [address] Referral ID Status Reason Start Date Expiration Date Visits Requested Visits Authorized [id number] Pending Review PCP Requested Referral 04/12/2022 04/12/2023 1 1 Reason Comments Follow Up Reason Comments Transition Of Care [facility] for shortnes s of breath Reason [...] Comments Post Op 11/12/23 left endarter ectomy Reason Comments Established Patient Follow Up Diabetic Foot Check Reason Comments New Patient Disease of intestine s Reason Comments Procedure COLONOSCOPY Reason Comments Nephrology Clearance Reason Comments Established Patient Diabetic Foot Care Reason Comments Established Patient Care Teams (unrecognized sec tion and content) Team Status: Active Member Role Status Dates Dr. Riaz Garrison MD Primary Care Provider Active Team Status: Inactive Member Role Status Dates Dr. Riaz Garrison MD Primary Care Provider Active Start: November 03, 2024 End: November 03, 2024 ANNA Porras Attending Provider Active Start: November 03, 2024 End: November 03, 2024 Team Status: Inactive Member Role Status Dates Dr. Riaz Garrison MD Primary Care Provider Active Start: November 24, 2024 End: November 24, 2024 ANNA Frye Attending Provider Active Start: November 24, 2024 End: November 24, 2024 Miracle Pearce ELECTROCARDIOGRAPH REPAIRER-C Referring Provider Active Start: November 24, 2024 End: November 24, 2024 Team Status: Inactive Member Role Status Dates Dr. Riaz Garrison MD Primary Care Provider Active Start: November 30, 2024 End: November 30, 2024 Dr. Riaz Garrison MD Referring Provider Active Start: November 30, 2024 End: November 30, 2024 Mike Stearns NP, ELECTROCARDIOGRAPH REPAIRER-C Attending Provider Active S tart: November 30, 2024 End: November 30, 2024 Team Status: Inactive Member Role Status Dates Dr. Riaz Garrison MD Primary Care Provider Active Start: December 14, 2024 End: December 17, 2024 Dr. Dalton Del Angel , DO Emergency Provider Activ e Start: December 14, 2024 End: December 17, 2024 Dr. Inocencio Perkins , DO Admit Provider Active S tart: December 14, 2024 End: December 17, 2024 Dr. Inocencio Perkins , Attending Provider Active Start: December 14, 2024 End: December 17, 2024 Team Status: Active Member Role Status Dates Dr. Riaz Garrison MD Primary Care Provider Active Start: December 14, 2024 Dr. Dalton Del Angel , DO Emergency Provider Activ e Start: December 14, 2024 Dr. Inocencio Perkins , DO Admit Provider Active S tart: December 14, 2024 Dr. Inocencio Perkins , Attending Provider Active Start: December 14, 2024 Dr. Inocencio Perkins , DO Other Provider Active S tart: December 14, 2024 Team Status: Active Member Role Status Dates Dr. Riaz Garrison MD Primary Care Provider Active Start: December 15, 2024 Dr. Dalton Del Angel , DO Emergency Provider Activ e Start: December 15, 2024 Dr. Inocencio Perkins , DO Admit Provider Active S tart: December 15, 2024 Dr. Inocencio Perkins , DO Attending Provider Active Start: December 15, 2024 Dr. Inocencio Perkins , DO Other Provider Active S tart: December 15, 2024 Team Status: Active Member Role Status Dates Dr. Riaz Garrison MD Primary Care Provider Active Start: December 16, 2024 Dr. Dalton Del Angel , Emergency Provider Activ e Start: December 16, 2024 Dr. Inocencio Perkins , Admit Provider Active S tart: December 16, 2024 Dr. Inocencio Perkins , Attending Provider Active Start: December 16, 2024 Dr. Inocencio Perkins , Other Provider Active S tart: December 16, 2024 Team Status: Active Member Role Status Dates Dr. Riaz Garrison MD Primary Care Provider Active Start: December 17, 2024 Dr. Dalton Del Angel , DO Emergency Provider Activ e Start: December 17, 2024 Dr. Inocencio Perkins , Admit Provider Active S tart: December 17, 2024 Dr. Inocencio Perkins , Attending Provider Active Start: December 17, 2024 Dr. Inocencio Perkins , Other Provider Active S tart: December 17, 2024 Team Status: Inactive Member Role Status Dates Dr. Riaz Garrison MD Primary Care Provider Active Start: December 28, 2024 End: December 28, 2024 Dr. Riaz Garrison MD Attending Provider Active Start: December 28, 2024 End: December 28, 2024 Dr. Riaz Garrison MD Referring Provider Active Start: December 28, 2024 End: December 28, 2024 Team Status: Inactive Member Role Status Dates Dr. Riaz Garrison MD Primary Care Provider Active Start: January 01, 2025 End: January 01, 2025 Dr. Riaz Garrison MD Referring Provider Active Start: January 01, 2025 End: January 01, 2025 ANNA Porras Attending Provider Active Start: January 01, 2025 End: January 01, 2025 Team Status: Inactive Member Role Status Dates Dr. Riaz Garrison MD Primary Care Provider Active Start: January 06, 2025 End: January 06, 2025 Dr. Riaz Garrison MD Attending Provider Active Start: January 06, 2025 End: January 06, 2025 Dr. Riaz Garrison MD Referring Provider Active Start: January 06, 2025 End: January 06, 2025 Team Status: Inactive Member Role Status Dates Dr. Riaz Garrison MD Primary Care Provider Active Start: January 29, 2025 End: January 29, 2025 Dr. Wellington Lay DO Attending Provider Active Start : January 29, 2025 End: January 29, 2025 Dr. Wellington Lay DO Emergency Provider Active Start : January 29, 2025 End: January 29, 2025 Team Status: Inactive Member Role Status Dates Dr. Riaz Garrison MD Primary Care Provider Active Start: February 01, 2025 End: February 01, 2025 Dr. Riaz Garrison MD Attending Provider Active Start: February 01, 2025 End: February 01, 2025 Dr. Riaz Garrison MD Referring Provider Active Start: February 01, 2025 End: February 01, 2025 Team Status: Inactive Member Role Status Dates Dr. Riaz Garrison MD Primary Care Provider Active Start: February 01, 2025 End: February 01, 2025 Dr. Riaz Garrison MD Attending Provider Active Start: February 01, 2025 End: February 01, 2025 Team Status: Inactive Member Role Status Dates Dr. Riaz Garrison MD Primary Care Provider Active Start: February 04, 2025 End: February 04, 2025 Dr. Riaz Garrison MD Referring Provider Active Start: February 04, 2025 End: February 04, 2025 Laura Farias PA, PA Attending Provider Active Start: February 04, 2025 End: February 04, 2025 Team Status: Inactive Member Role Status Dates Dr. Riaz Garrison MD Primary Care Provider Active Start: February 06, 2025 End: February 06, 2025 Dr. Riaz Garrison MD Attending Provider Active Start: February 06, 2025 End: February 06, 2025 Dr. Riaz Garrison MD Referring Provider Active Start: February 06, 2025 End: February 06, 2025 Team Status: Active Member Role Status Dates Dr. Riaz Garrisno MD Primary Care Provider Active Start: February 08, 2025 Dr. Riaz Garrison MD Attending Provider Active Start: February 08, 2025 Team Status: Active Member Role Status Dates Dr. Riaz Garrison MD Primary Care Provider Active Start: October 06, 2024 Tessy Clark MA Attending Provider Active Start: September Team Status: Inactive Member Role Status Dates Dr. Riaz Garrison MD Primary Care Provider Active Start: October 06, 2024 End: October 06, 2024 Dr. Riaz Garrison MD Referring Provider Active Start: October 06, 2024 End: October 06, 2024 Kisha Silveira NP-C Attending Provider Active Start: October 06, 2024 End: October 06, 2024 Chief Of Staff Doctor Relationship Specialty Start Date End Date Emeka Horn MD [address] [facility] [place] [address] PCP - General 07/31/02 Chito Rivero [address] [place] [address] Consulting Pulmonary Disease 06/30/18 Chief Of Staff Doctor Relationship Specialty Start Date End Date Emeka Horn MD [address] [facility] [place] [address] PCP - General 07/31/02 Chito Rivero [address] [place] [address] Consulting Pulmonary Disease 06/30/18 Chief Of Staff Doctor Relationship Specialty Start Date End Date Emeka Horn MD [address] [facility] [place] [address] PCP - General 07/31/02 Chito Rivero [address] [place] [address] Consulting Pulmonary Disease 06/30/18 Chief Of Staff Doctor Relationship Specialty Start Date End Date Emeka Horn MD [address] [facility] [place] [address] PCP - General 07/31/02 Chito Rivero [address] [place] [address] Consulting Pulmonary Disease 06/30/18 Chief Of Staff Doctor Relationship Specialty Start Date End Date Emeka Horn MD [address] [facility] [place] [address] PCP - General 07/31/02 Chito Rivero [address] [place] [address] Consulting Pulmonary Disease 06/30/18 Chief Of Staff Doctor Relationship Specialty Start Date End Date Emeka Horn MD [address] [facility] [place] [address] PCP - General 07/31/02 Chito Rivero [address] [place] [address] Consulting Pulmonary Disease 06/30/18 Chief Of Staff Doctor Relationship Specialty Start Date End Date Emeka Horn MD [address] [facility] [place] [address] PCP - General 07/31/02 Chito Rivero [address] [place] [address] Consulting Pulmonary Disease 06/30/18 Chief Of Staff Doctor Relationship Specialty Start Date End Date Emeka Horn MD [address] [place] [address] PCP - General 07/31/02 Chito Rivero [address] [place] [address] Consulting Pulmonary Disease 06/30/18 Chief Of Staff Doctor Relationship Specialty Start Date End Date Emeka Horn MD [address] [place] [address] PCP - General 07/31/02 Chito Rivero [address] [place] [address] Consulting Pulmonary Disease 06/30/18 Chief Of Staff Doctor Relationship Specialty Start Date End Date Emeka Horn MD [address] [facility] [place] [address] PCP - General 07/31/02 Chito Rivero [address] [place] [address] Consulting Pulmonary Disease 06/30/18 Chief Of Staff Doctor Relationship Specialty Start Date End Date Emeka Horn MD [address] [facility] [place] [address] PCP - General 07/31/02 Chito Rivero [address] [place] [address] Consulting Pulmonary Disease 06/30/18 Chief Of Staff Doctor Relationship Specialty Start Date End Date Chito Rivero [address] [place] [address] Consulting Pulmonary Disease 06/30/18 Team Status: Active Member Role Status Dates Dr. Emeka Horn MD Family Provider Active Dr. Riaz Garrison MD Primary Care Provider Active Team Status: Inactive Member Role Status Dates Dr. Emeka Horn MD Referring Provider Active Dr. Nabil Pierre MD Attending Provider Active Dr. Riaz Garrison MD Primary Care Provider Active Team Status: Inactive Member Role Status Dates Dr. Riaz Garrison MD Primary Care Pro vider, Attending Provider, Referring Provider Active Team Status: Inactive Member Role Status Dates Dr. Riaz Garrison MD Primary Care Provider, Referri ng Provider Active Denise Cruz ELECTROCARDIOGRAPH REPAIRER, ELECTROCARDIOGRAPH REPAIRER-C Attending Provider Active Team Status: Inactive Member Role Status Dates Dr. Riaz Garrison MD Primary Care Provider, Referri ng Provider Active Dr. Florentin Lagunas DO Attending Provider Active Team Status: Inactive Member Role Status Dates Dr. Riaz Garrison MD Primary Care Provider Active Dr. Nabil Pierre MD Attending Provider Active Team Status: Inactive Member Role Status Dates Dr. Riaz Garrison MD Primary Care Provider Active Dr. Florentin Lagunas DO Attending Provider, Referring P kaiser Active Chief Of Staff Doctor Relationship Specialty Start Date End Date Chito Rivero [address] [place] [address] Consulting Pulmonary Disease 06/30/18 Chief Of Staff Doctor Relationship Specialty Start Date End Date Chito Rivero [address] [place] [address] Consulting Pulmonary Disease 06/30/18 Chief Of Staff Doctor Relationship Specialty Start Date End Date Chito Rivero [address] [place] [address] Consulting Pulmonary Disease 06/30/18 Chief Of Staff Doctor Relationship Specialty Start Date End Date Chito Rivero [address] [place] [address] Consulting Pulmonary Disease 06/30/18 Chief Of Staff Doctor Relationship Specialty Start Date End Date Chito Rivero [address] [place] [address] Consulting Pulmonary Disease 06/30/18 Team Status: Inactive Member Role Status Dates Dr. Riaz Garrison MD Primary Care Provider, Referri ng Provider Active Dr. Chito Rivero MD Attending Provider Active Team Status: Inactive Member Role Status Dates Dr. Riaz Garrison MD Primary Care Provider, Referri ng Provider Active Marguerite Jennings ELECTROCARDIOGRAPH REPAIRER, ELECTROCARDIOGRAPH REPAIRER-C Attending Provider Active Team Status: Active Member Role Status Dates Dr. Riaz Garrison MD Primary Care Provider Active Dr. Nabil Pierre MD Attending Provider Active Team Status: Active Member Role Status Dates Dr. Riaz Garrison MD Primary Care Provider Active Marguerite Jennings ELECTROCARDIOGRAPH REPAIRER, ELECTROCARDIOGRAPH REPAIRER-C Attending Provider Active Team Status: Inactive Member Role Status Dates Dr. Riaz Garrison MD Primary Care Provider Active Marguerite Jennings ELECTROCARDIOGRAPH REPAIRER, ELECTROCARDIOGRAPH REPAIRER-C Attending Provider, Referring P kaiser Active Team Status: Active Member Role Status Dates Dr. Riaz Garrison MD Primary Care Provider Active Dr. Nabil Pierre MD Attending Provider, Referring Pro vider Active Chief Of Staff Doctor Relationship Specialty Start Date End Date Riaz Garrison MD [address] [place] [address] PCP - General Internal Medicine 05/22/23 Chito Rivero MD [address] [place] [address] Consulting Pulmonary Disease 06/30/18 Team Status: Inactive Member Role Status Dates Dr. Riaz Garrison MD Primary Care Provider, Attendi ng Provider Active Team Status: Inactive Member Role Status Dates Dr. Riaz Garrison MD Primary Care Provider Active Dr. Jonny Abebe MD Attending Provider, Referri ng Provider Active Chief Of Staff Doctor Relationship Specialty Start Date End Date Riaz Garrison MD [address] [place] [address] PCP - General Internal Medicine 05/22/23 Chito Rivero MD [address] [place] [address] Consulting Pulmonary Disease 06/30/18 Chief Of Staff Doctor Relationship Specialty Start Date End Date Riaz Garrison MD [address] [place] [address] PCP - General Internal Medicine 05/22/23 Chito Rivero MD [address] [place] [address] Consulting Pulmonary Disease 06/30/18 Team Status: Active Member Role Status Dates Dr. Riaz Garrison MD Primary Care Provider Active Dr. Jonny Abebe MD Attending Provider, Referri Provider Active Chief Of Staff Doctor Relationship Specialty Start Date End Date Riaz Garrison MD [address] [place] [address] PCP - General Internal Medicine 05/22/23 Chito Rivero MD [address] [place] [address] Consulting Pulmonary Disease 06/30/18 Chief Of Staff Doctor Relationship Specialty Start Date End Date Riaz Garrison MD [address] [place] [address] PCP - General Internal Medicine 05/22/23 Chito Rivero MD [address] [place] [address] Consulting Pulmonary Disease 06/30/18 Team Status: Active Member Role Status Dates Dr. Rosa Collins MD Emergency Provider Active Dr. Riaz Garrison MD Primary Care Provider Active Dr. Raymond Teague DO Attending Provider Active Team Status: Active Member Role Status Dates Dr. Rosa Collins MD Emergency Provider Active Dr. Riaz Garrison MD Primary Care Provider Active Dr. Raymond Teague DO Admit Provider, Attending Pr ovider Active Team Status: Active Member Role Status Dates Dr. Riaz Garrison MD Primary Care Provider Active Dr. Ben Rainey MD Attending Provider Active Team Status: Inactive Member Role Status Dates Dr. Rosa Collins MD Emergency Provider Active Dr. Riaz Garrison MD Primary Care Provider Active Dr. Raymond Teague , DO Admit Provider, Other Provid er Active Dr. Inocencio Perkins , DO Attending Provider Active Team Status: Inactive Member Role Status Dates Dr. Riaz Garrison MD Primary Care Provider, Referri ng Provider Active Joanna Negron NP-C Attending Provider Active Team Status: Inactive Member Role Status Dates Dr. Riaz Garrison MD Primary Care Provider Active Joanna Negron NP-C Attending Provider Active Chief Of Staff Doctor Relationship Specialty Start Date End Date Riaz Garrison MD [address] [place] [address] PCP - General Internal Medicine 05/22/23 Chito Rivero MD [address] [place] [address] Consulting Pulmonary Disease 06/30/18 Chief Of Staff Doctor Relationship Specialty Start Date End Date Riaz Garrison MD [address] [place] [address] PCP - General Internal Medicine 05/22/23 Chito Rivero MD [address] [place] [address] Consulting Pulmonary Disease 06/30/18 Chief Of Staff Doctor Relationship Specialty Start Date End Date Riaz Garrison MD [address] [place] [address] PCP - General Internal Medicine 05/22/23 Chito Rivero MD [address] [place] [address] Consulting Pulmonary Disease 06/30/18 Team Status: Active Member Role Status Dates Dr. Riaz Garrison MD Primary Care Provider Active Dr. Ben Rainey MD Attending Provider Active Marguerite Jennings ELECTROCARDIOGRAPH REPAIRER, ELECTROCARDIOGRAPH REPAIRER-C Referring Provider Active Team Status: Active Member Role Status Dates Dr. Riaz Garrison MD Primary Care Provider Active Dr. Natanael Martinez MD Attending Provider Active Dr. Dinesh Comer MD Referring Provider Active Team Status: Inactive Member Role Status Dates Dr. Riaz Garrison MD Primary Care Provider, Referri ng Provider Active BIM NURSE Attending Provider Active Team Status: Inactive Member Role Status Dates Dr. Riaz Garrison MD Primary Care Provider Active Dr. Dinesh Comer MD Attending Provider, Emergency Pro vider Active Team Status: Inactive Member Role Status Dates Dr. Riaz Garrison MD Primary Care Provider Active Joanna Negron NP-C Attending Provider, Referring Pro vider Active Team Status: Active Member Role Status Dates Dr. Riaz Garrison MD Primary Care Provider Active Joanna Negron NP-C Attending Provider, Referring Pro vider Active Team Status: Inactive Member Role Status Dates Dr. Riaz Garrison MD Primary Care Provider Active Dr. Elvin Milligan MD Emergency Provider Active Chief Of Staff Doctor Relationship Specialty Start Date End Date Riaz Garrison MD [address] [place], [place] [address] PCP - General Internal Medicine 05/22/23 Chito Rivero MD [address] [place] [address] Consulting Pulmonary Disease 06/30/18 Team Status: Inactive Member Role Status Dates Dr. Riaz Garrison MD Primary Care Provider Active Dr. Elvin Milligan MD Attending Provider, Emergency Provider Active Team Status: Inactive Member Role Status Dates Dr. Riaz Garrison MD Primary Care Provider Active Marguerite Jennings ELECTROCARDIOGRAPH REPAIRER, ELECTROCARDIOGRAPH REPAIRER-C Attending Provider Active Team Status: Active Member Role Status Dates Dr. Riaz Garrison MD Primary Care Provider Active Marguerite Jennings ELECTROCARDIOGRAPH REPAIRER, ELECTROCARDIOGRAPH REPAIRER-C Attending Provider Active Joanna Negron NP-Ayanna Referring Provider Active Team Status: Inactive Member Role Status Dates Dr. Riaz Garrison MD Primary Care Provider Active Marguerite Jennings ELECTROCARDIOGRAPH REPAIRER, ELECTROCARDIOGRAPH REPAIRER-C Attending Provider Active ANNA Cha Referring Provider Active Team Status: Inactive Member Role Status Dates Dr. Riaz Garrison MD Primary Care Provider, Referri ng Provider Active BIM NURSE Active Joanna Negron NP-C Attending Provider Active Team Status: Active Member Role Status Dates Dr. Riaz Garrison MD Primary Care Provider Active Dr. Elvin Milligan MD Emergency Provider Active Dr. Hansel Gillis MD Admit Provider, Attending Prov ider Active Team Status: Active Member Role Status Dates Dr. Riaz Garrison MD Primary Care Provider Active Dr. Elvin Milligan MD Emergency Provider Active Dr. Hansel Gillis MD Admit Provider, Attending Provider, Other Provider Active Team Status: Active Member Role Status Dates Dr. Riaz Garrison MD Primary Care Provider Active Dr. Brandon Mar MD Attending Provider Activ e Team Status: Active Member Role Status Dates Dr. Riaz Garrison MD Primary Care Provider Active Dr. Elvin Milligan MD Emergency Provider Active Dr. Hansel Gillis MD Admit Provider, Other Provider Active Dr. Fernandez Santana MD Attending Provider, Other Provi micheal Active Team Status: Active Member Role Status Dates Dr. Riaz Garrison MD Primary Care Provider Active Dr. Elvin Milligan MD Emergency Provider Active Dr. Hansel Gillis MD Admit Provider, Other Provider Active Dr. Fernandez Santana MD Attending Provider, Other Provi micheal Active Dr. Bimal Thomas MD Other Provider Active Dr. Armin Woods MD Other Provider Active Dr. Luiz Painter DO Other Provider Active Dr. You Harrison MD Other Provider Active Dr. Goldy Tristan MD Other Provider Active Dr. Nicole Sherwood MD Other Provider Active Dr. Mirza Cabral MD Other Provider Active Dr. Belle Amaral MD Other Provider Active Dr. Dion Botello MD Other Provider Active Dr. Darrel Galdamez MD Other Provider Active Dr. Dave Kovacs MD Other Provider Active Dr. Greg Zarate MD Other Provider Active Dr. Guillermo Briones MD Other Provider Active Dr. Matt Ervin MD Other Provider Active Dr. Jonny Abebe MD Other Provider Active Team Status: Active Member Role Status Dates Dr. Riaz Garrison MD Primary Care Provider Active Dr. Elvin Milligan MD Emergency Provider Active Dr. Hansel Gillis MD Admit Provider, Other Provider Active Dr. Fernandez Santana MD Other Provider Active Dr. Bimal Thomas MD Other Provider Active Dr. Armin Woods MD Other Provider Active Dr. Luiz Painter DO Attending Provider, Other Provide r Active Dr. You Harrison MD Other Provider Active Dr. Goldy Tristan MD Other Provider Active Dr. Nicole Sherwood MD Other Provider Active Dr. Mirza Cabral MD Other Provider Active Dr. Belle Amaral MD Other Provider Active Dr. Dion Botello MD Other Provider Active Dr. Darrel Galdamez MD Other Provider Active Dr. Dave Kovacs MD Other Provider Active Dr. Greg Zarate MD Other Provider Active Dr. Guillermo Briones MD Other Provider Active Dr. Matt Ervin MD Other Provider Active Dr. Jonny Abebe MD Other Provider Active Team Status: Active Member Role Status Dates Dr. Riaz Garrison MD Primary Care Provider Active Dr. Elvin Milligan MD Emergency Provider Active Dr. Hansel Gillis MD Admit Provider, Other Provider Active Dr. Fernandez Santana MD Attending Provider, Other Provi micheal Active Dr. Jonny Abebe MD Other Provider Active Team Status: Inactive Member Role Status Dates Dr. Riaz Garrison MD Primary Care Provider Active Dr. Elvin Milligan MD Emergency Provider Active Dr. Hansel Gillis MD Admit Provider, Other Provider Active Dr. Fernandez Santana MD Attending Provider Active Dr. Jonny Abebe MD Other Provider Active Team Status: Active Member Role Status Dates Dr. Riaz Garrison MD Primary Care Provider Active Dr. Elvin Milligan MD Emergency Provider Active Dr. Hansel Gillis MD Admit Provider, Other Provider Active Dr. Fernandez Santana MD Referring Provider, Other Provi micheal Active Dr. Bimal Thomas MD Other Provider Active Dr. Armin Woods MD Other Provider Active Dr. Luiz Painter DO Attending Provider, Other Provide r Active Dr. You Harrison MD Other Provider Active Dr. Goldy Tristan MD Other Provider Active Dr. Nicole Sherwood MD Other Provider Active Dr. Mirza Cabral MD Other Provider Active Dr. Belle Amaral MD Other Provider Active Dr. Dion Botello MD Other Provider Active Dr. Darrel Galdamez MD Other Provider Active Dr. Dave Kovacs MD Other Provider Active Dr. Greg Zarate MD Other Provider Active Dr. Guillermo Briones MD Other Provider Active Dr. Matt Ervin MD Other Provider Active Dr. Jonny Abebe MD Other Provider Active Team Status: Inactive Member Role Status Dates Dr. Riaz Garrison MD Primary Care Provider Active Dr. Adelfo Obrien DO Emergency Provider Active Team Status: Inactive Member Role Status Dates Dr. Riaz Garrison MD Primary Care Provider, Referri ng Provider Active Laura CARRERA PA Attending Provider Active Team Status: Active Member Role Status Dates Dr. Riaz Garrison MD Primary Care Provider Active Laura CARRERA PA Attending Provider, Referr ing Provider Active Team Status: Inactive Member Role Status Dates Dr. Riaz Garrison MD Primary Care Provider Active Laura CARRERA PA Attending Provider, Referr ing Provider Active Chief Of Staff Doctor Relationship Specialty Start Date End Date Riaz Garrison MD [address] [place], [place] [address] PCP - General Internal Medicine 05/22/23 Nabil Pierre MD [address] [place], [place] [id number] Cardiology 02/26/24 Luiz Painter [address] [place] [address] Internal Medicine 02/26/24 Chief Of Staff Doctor Relationship Specialty Start Date End Date Riaz Garrison MD [address] [place] [address] PCP - General Internal Medicine 05/22/23 Nabil Pierre MD [address] [place] [address] Cardiology 02/26/24 Luiz Painter [address] [place] [address] Internal Medicine 02/26/24 Chief Of Staff Doctor Relationship Specialty Start Date End Date Riaz Garrison MD [address] [place] [address] PCP - General Internal Medicine 05/22/23 Nabil Pierre MD [address] [place] [address] Cardiology 02/26/24 Luiz Painter [address] [place] [address] Internal Medicine 02/26/24 Chief Of Staff Doctor Relationship Specialty Start Date End Date Riaz Garrison MD [address] [place] [address] PCP - General Internal Medicine 05/22/23 Nabil Pierre MD [address] [place] [address] Cardiology 02/26/24 Luiz Painter [address] [place] [address] Internal Medicine 02/26/24 Chief Of Staff Doctor Relationship Specialty Start Date End Date Riaz Garrison MD [address] [place] [address] PCP - General Internal Medicine 05/22/23 Nabil Pierre MD [address] [place] [address] Cardiology 02/26/24 Luiz Painter [address] [place] [address] Internal Medicine 02/26/24 Chief Of Staff Doctor Relationship Specialty Start Date End Date Riaz Garrison MD [address] [place] [address] PCP - General Internal Medicine 05/22/23 Nabil Pierre MD [address] [place] [address] Cardiology 02/26/24 Luiz Painter [address] [place] [address] Internal Medicine 02/26/24 Chief Of Staff Doctor Relationship Specialty Start Date End Date Riza Garrison MD [address] [place] [address] PCP - General Internal Medicine 05/22/23 Nabil Pierre MD [address] [place] [address] Cardiology 02/26/24 Luiz Painter [address] [place] [address] Internal Medicine 02/26/24 Chief Of Staff Doctor Relationship Specialty Start Date End Date Riaz Garrison MD [address] [place] [address] PCP - General Internal Medicine 05/22/23 Nabil Pierre MD [address] [place] [address] Cardiology 02/26/24 Luiz Painter [address] [place] [address] Internal Medicine 02/26/24 Chief Of Staff Doctor Relationship Specialty Start Date End Date Riaz Garrison MD [address] [place] [address] PCP - General Internal Medicine 05/22/23 Nabil Pierre MD [address] [place] [address] Cardiology 02/26/24 Luiz Painter [address] [place] [address] Internal Medicine 02/26/24 Chief Of Staff Doctor Relationship Specialty Start Date End Date Riaz Garrison MD [address] [place] [address] PCP - General Internal Medicine 05/22/23 Nabil Pierre MD [address] [place], [place] [address] Cardiology 02/26/24 Luiz Painter [address] [place] [id number] Internal Medicine 02/26/24 Team Status: Inactive Member Role Status Dates Dr. Riaz Garrison MD Primary Care Provider Active Start: August 24, 2024 End: August 24, 2024 Dr. Riaz Garrison MD Attending Provider Active Start: August 24, 2024 End: August 24, 2024 Dr. Riaz Garrison MD Referring Provider Active Start: August 24, 2024 End: August 24, 2024 Team Status: Inactive Member Role Status Dates Dr. Riaz Garrison MD Primary Care Provider Active Start: August 24, 2024 End: August 24, 2024 Dr. Riaz Garrison MD Attending Provider Active Start: August 24, 2024 End: August 24, 2024 Team Status: Inactive Member Role Status Dates Dr. Riaz Garrison MD Primary Care Provider Active Start: August 31, 2024 End: August 31, 2024 Dr. Riaz Garrison MD Attending Provider Active Start: August 31, 2024 End: August 31, 2024 Dr. Riaz Garrison MD Referring Provider Active Start: August 31, 2024 End: August 31, 2024 Team Status: Active Member Role Status Dates Dr. Riaz Garrison MD Primary Care Provider Active Start: December 14, 2024 Dr. Dalton Del Angel DO Emergency Provider Activ e Start: December 14, 2024 Dr. Inocencio Perkins DO Admit Provider Active S tart: December 14, 2024 Dr. Inocencio Perkins DO Attending Provider Active Start: December 14, 2024 Team Status: Inactive Member Role Status Dates Dr. Riaz Garrison MD Primary Care Provider Active Start: January 29, 2025 End: January 29, 2025 Dr. Wellington Lay DO Emergency Provider Active Start : January 29, 2025 End: January 29, 2025 Team Status: Active Member Role Status Dates Dr. Riaz Garrison MD Primary Care Provider Active Start: February 12, 2025 Dr. Riaz Garrison MD Attending Provider Active Start: February 12, 2025 Team Status: Active Member Role Status Dates Dr. Riaz Garrison MD Primary Care Provider Active Start: February 15, 2025 Dr. Dinesh Comer MD Emergency Provider Active S tart: February 15, 2025 Dr. Raymond Teague DO Admit Provider Active Start: February 15, 2025 Dr. Raymond Teague DO Attending Provider Active Start: February 15, 2025 Team Status: Inactive Member Role Status Dates Dr. Riaz Garrison MD Primary Care Provider Active Start: February 15, 2025 End: February 18, 2025 Dr. Dinesh Comer MD Emergency Provider Active S tart: February 15, 2025 End: February 18, 2025 Dr. Raymond Teague DO Admit Provider Active Start: February 15, 2025 End: February 18, 2025 Dr. Raymond eTague DO Other Provider Active Start: February 15, 2025 End: February 18, 2025 Dr. Inocencio Perkins DO Attending Provider Active Start: February 15, 2025 End: February 18, 2025 Team Status: Active Member Role Status Dates Dr. Riaz Garrison MD Primary Care Provider Active Start: February 15, 2025 Dr. Nabil Pierre MD Attending Provider Active S tart: February 15, 2025 Team Status: Active Member Role Status Dates Dr. Riaz Garrison MD Primary Care Provider Active Start: February 16, 2025 Dr. Dinesh Comer MD Emergency Provider Active S tart: February 16, 2025 Dr. Raymond Teague DO Admit Provider Active Start: February 16, 2025 Dr. Raymond Teague DO Other Provider Active Start: February 16, 2025 Oscar Perales MD Other Provider Active Start: 2024 Dr. Candy Castillo MD Other Provider Active Start: February 16, 2025 Jannette Burnett MD Other Provider Active Start : February 16, 2025 Dr. Christine Murray DO Other Provider Active St art: February 16, 2025 Dr. Torri Van MD Other Provider Active Start: February 16, 2025 Dr. Carlos Medellin MD Other Provider Active Sta rt: February 16, 2025 Dr. Mary Ellen Ramirez MD Other Provider Active Start : February 16, 2025 Dr. Ulises Martin MD Other Provider Active Start: February 16, 2025 Dr. Mike Caballero MD Other Provider Active Start : February 16, 2025 Dr. Rip Mcmanus MD Other Provider Active Sta rt: February 16, 2025 Beverley San MD Other Provider Active Start : February 16, 2025 Dr. Vipul Sherwood MD Other Provider Active St art: February 16, 2025 Dr. Cindy Urban MD Other Provider Active Start : February 16, 2025 Dr. Bonnie Wills MD Other Provider Active Sta rt: February 16, 2025 Dr. Shira José MD Other Provider Active Start: February 16, 2025 Dr. Otriz Wilkinson MD Other Provider Active St art: February 16, 2025 Dr. Jean Marie Anderson MD Other Provider Active Star t: February 16, 2025 Dr. Elmer Aguirre MD Other Provider Active St art: February 16, 2025 Dr. Yari Grayson MD Other Provider Active Start: February 16, 2025 Alex iVllalba MD Other Provider Active Start: February 16, 2025 Dr. Inocencio Perkins DO Attending Provider Active Start: February 16, 2025 Dr. Inocencio Perkins DO Other Provider Active S tart: February 16, 2025 Team Status: Active Member Role Status Dates Dr. Riaz Garrison MD Primary Care Provider Active Start: February 17, 2025 Dr. Dinesh Comer MD Emergency Provider Active S tart: February 17, 2025 Dr. Raymond Teague , Admit Provider Active Start: February 17, 2025 Dr. Raymond Teague , Other Provider Active Start: February 17, 2025 Dr. Inocencio Perkins , Attending Provider Active Start: February 17, 2025 Dr. Inocencio Perkins , Other Provider Active S tart: February 17, 2025 Team Status: Active Member Role Status Dates Dr. Riaz Garrison MD Primary Care Provider Active Start: February 19, 2025 Dr. Enzo Chu DO Emergency Provider Active Start: February 19, 2025 Dr. Hansel Gillis MD Admit Provider Active St art: February 19, 2025 Dr. Hansel Gillis MD Attending Provider Active Start: February 19, 2025 Dr. Hansel Gillis MD Referring Provider Active Start: February 19, 2025 Team Status: Active Member Role Status Dates Dr. Riaz Garrison MD Primary Care Provider Active Start: February 18, 2025 Dr. Dinesh Comer MD Emergency Provider Active S tart: February 18, 2025 Dr. Raymond Teague DO Admit Provider Active Start: February 18, 2025 Dr. Raymond Teague DO Other Provider Active Start: February 18, 2025 Dr. Inocencio Perkins DO Attending Provider Active Start: February 18, 2025 Dr. Inocencio Perkins DO Other Provider Active S tart: February 18, 2025 Team Status: Inactive Member Role Status Dates Dr. Riaz Garrison MD Primary Care Provider Active Start: February 19, 2025 End: February 22, 2025 Dr. Enzo Cuh DO Emergency Provider Active Start: February 19, 2025 End: February 22, 2025 Dr. Hansel Gillis MD Admit Provider Active St art: February 19, 2025 End: February 22, 2025 Dr. Hansel Gillis MD Referring Provider Active Start: February 19, 2025 End: February 22, 2025 Dr. Hansel Gillis MD Other Provider Active St art: February 19, 2025 End: February 22, 2025 Dr. Inocencio Perkins DO Attending Provider Active Start: February 19, 2025 End: February 22, 2025 Dr. Tracey Orantes MD Other Provider Active St art: February 19, 2025 End: February 22, 2025 Team Status: Active Member Role Status Dates Dr. Riaz Garrison MD Primary Care Provider Active Start: February 19, 2025 Dr. Enzo Chu DO Emergency Provider Active Start: February 19, 2025 Dr. Hansel Gillis MD Admit Provider Active St art: February 19, 2025 Dr. Hansel Gillis MD Attending Provider Active Start: February 19, 2025 Dr. Hansel Gillis MD Referring Provider Active Start: February 19, 2025 Dr. Hansel Gillis MD Other Provider Active St art: February 19, 2025 Team Status: Active Member Role Status Dates Dr. Riaz Garrison MD Primary Care Provider Active Start: February 20, 2025 Dr. Enzo Chu DO Emergency Provider Active Start: February 20, 2025 Dr. Hansel Gillis MD Admit Provider Active St art: February 20, 2025 Dr. Hansel Gillis MD Referring Provider Active Start: February 20, 2025 Dr. Hansel Gillis MD Other Provider Active St art: February 20, 2025 Dr. Inocencio Perkins DO Attending Provider Active Start: February 20, 2025 Dr. Inocencio Perkins , Other Provider Active S tart: February 20, 2025 Dr. Tracey Orantes MD Other Provider Active St art: February 20, 2025 Team Status: Active Member Role Status Dates Dr. Riaz Garrison MD Primary Care Provider Active Start: February 21, 2025 Dr. Enzo Chu DO Emergency Provider Active Start: February 21, 2025 Dr. Hansel Gillis MD Admit Provider Active St art: February 21, 2025 Dr. Hansel Gillis MD Referring Provider Active Start: February 21, 2025 Dr. Hansel Gillis MD Other Provider Active St art: February 21, 2025 Dr. Inocencio Perkins DO Attending Provider Active Start: February 21, 2025 Dr. Inocencio Perkins DO Other Provider Active S tart: February 21, 2025 Dr. Tracey Orantes MD Other Provider Active St art: February 21, 2025 Team Status: Active Member Role Status Dates Dr. Riaz Garrison MD Primary Care Provider Active Start: February 19, 2025 Dr. Enzo Chu DO Emergency Provider Active Start: February 19, 2025 Dr. Hansel Gillis MD Admit Provider Active St art: February 19, 2025 Dr. Hansel Gillis MD Attending Provider Active Start: February 19, 2025 Dr. Hansel Gillis MD Other Provider Active St art: February 19, 2025 Team Status: Active Member Role Status Dates Dr. Riaz Garrison MD Primary Care Provider Active Start: February 20, 2025 Dr. Enzo Chu DO Emergency Provider Active Start: February 20, 2025 Dr. Hansel Gillis MD Admit Provider Active St art: February 20, 2025 Dr. Hansel Gillis MD Other Provider Active St art: February 20, 2025 Dr. Inocencio Perkins , DO Attending Provider Active Start: February 20, 2025 Dr. Inocencio Perkins , DO Other Provider Active S tart: February 20, 2025 Dr. Tracey Orantes MD Other Provider Active St art: February 20, 2025 Team Status: Active Member Role Status Dates Dr. Riaz Garrison MD Primary Care Provider Active Start: February 21, 2025 Dr. Enzo Chu DO Emergency Provider Active Start: February 21, 2025 Dr. Hansel Gillis MD Admit Provider Active St art: February 21, 2025 Dr. Hansel Gillis MD Other Provider Active St art: February 21, 2025 Dr. Inocencio Perkins DO Attending Provider Active Start: February 21, 2025 Dr. Inocencio Perkins , DO Other Provider Active S tart: February 21, 2025 Dr. Tracey Orantes MD Other Provider Active St art: February 21, 2025 Team Status: Active Member Role Status Dates Dr. Riaz Garrison MD Primary Care Provider Active Start: February 22, 2025 Dr. Enzo Chu DO Emergency Provider Active Start: February 22, 2025 Dr. Hansel Gillis MD Admit Provider Active St art: February 22, 2025 Dr. Hansel Gillis MD Other Provider Active St art: February 22, 2025 Dr. Inocencio Perkins DO Attending Provider Active Start: February 22, 2025 Dr. Inocencio Perkins DO Other Provider Active S tart: February 22, 2025 Dr. Tracey Orantes MD Other Provider Active St art: February 22, 2025 Team Status: Active Member Role Status Dates Dr. Riaz Garrison MD Primary Care Provider Active Start: February 26, 2025 Dr. Riaz Garrison MD Attending Provider Active Start: February 26, 2025 Team Status: Active Member Role Status Dates Dr. Riaz Garrison MD Primary Care Provider Active Start: March 03, 2025 Vipul CARRERA PA Attending Provider Active St art: March 03, 2025 Vipul CARRERA PA Referring Provider Active St art: March 03, 2025 Team Status: Inactive Member Role Status Dates Dr. Riaz Garrison MD Primary Care Provider Active Start: March 04, 2025 End: March 04, 2025 Dr. Riaz Garrison MD Referring Provider Active Start: March 04, 2025 End: March 04, 2025 Puneet CARRERA PA Attending Provider Active Sta rt: March 04, 2025 End: March 04, 2025 Team Status: Active Member Role Status Dates Dr. Riaz Garrison MD Primary Care Provider Active Start: March 04, 2025 DEBI Bobby Attending Provider Active Sta rt: March 04, 2025 DEBI Bobby Referring Provider Active Sta rt: March 04, 2025 Team Status: Active Member Role Status Dates Dr. Riaz Garrison MD Primary Care Provider Active Start: March 04, 2025 Dr. Maddie Hendrickson DO Emergency Provider Active S tart: March 04, 2025 Dr. Hansel Gillis MD Admit Provider Active St art: March 04, 2025 Dr. Hansel Gillis MD Attending Provider Active Start: March 04, 2025 Chief Of Staff Doctor Relationship Specialty Start Date End Date Riaz Garrison MD [address] [place], [place] [id number] PCP - General Internal Medicine 05/22/23 Nabil Pierre MD [address] [place], [place] [address] Cardiology 02/26/24 Luiz Painter [address] [place] [id number] Internal Medicine 02/26/24 Team Status: Inactive Member Role Status Dates Dr. Riaz Garrison MD Primary Care Provider Active Start: March 03, 2025 End: March 03, 2025 Vipul CARRERA PA Attending Provider Active St art: March 03, 2025 End: March 03, 2025 Vipul CARRERA PA Referring Provider Active St art: March 03, 2025 End: March 03, 2025 Team Status: Inactive Member Role Status Dates Dr. Riaz Garrison MD Primary Care Provider Active Start: March 04, 2025 End: March 04, 2025 DEBI Bobby Attending Provider Active Sta rt: March 04, 2025 End: March 04, 2025 DEBI Bobby Referring Provider Active Sta rt: March 04, 2025 End: March 04, 2025 Team Status: Inactive Member Role Status Dates Dr. Riaz Garrison MD Primary Care Provider Active Start: March 04, 2025 End: March 09, 2025 Dr. Maddie Hendrickson DO Emergency Provider Active S tart: March 04, 2025 End: March 09, 2025 Dr. Hansel Gillis MD Admit Provider Active St art: March 04, 2025 End: March 09, 2025 Dr. Hansel Gillis MD Other Provider Active St art: March 04, 2025 End: March 09, 2025 Dr. Tracey Orantes MD Attending Provider Active Start: March 04, 2025 End: March 09, 2025 Dr. Tracey Orantes MD Other Provider Active St art: March 04, 2025 End: March 09, 2025 Dr. Romana Dudley MD Other Provider Active Star t: March 04, 2025 End: March 09, 2025 Dr. Natanael Christensen MD Other Provider Active Start: March 04, 2025 End: March 09, 2025 Dr. Fernandez Santana MD Other Provider Active Sta rt: March 04, 2025 End: March 09, 2025 Team Status: Active Member Role Status Dates Dr. Riaz aGrrison MD Primary Care Provider Active Start: March 04, 2025 Dr. Maddie Hendrickson , DO Emergency Provider Active S tart: March 04, 2025 Dr. Hansel Gillis MD Admit Provider Active St art: March 04, 2025 Dr. Hansel Gillis MD Attending Provider Active Start: March 04, 2025 Dr. Hansel Gillis MD Other Provider Active St art: March 04, 2025 Team Status: Active Member Role Status Dates Dr. Riaz Garrison MD Primary Care Provider Active Start: March 05, 2025 Dr. Maddie Hendrickson , DO Emergency Provider Active S tart: March 05, 2025 Dr. Hansel Gillis MD Admit Provider Active St art: March 05, 2025 Dr. Hansel Gillis MD Other Provider Active St art: March 05, 2025 Dr. Guillermo Briones MD Other Provider Active Star t: March 05, 2025 Dr. Tracey Orantes MD Attending Provider Active Start: March 05, 2025 Dr. Tracey Orantes MD Other Provider Active St art: March 05, 2025 Team Status: Active Member Role Status Dates Dr. Riaz Garrison MD Primary Care Provider Active Start: March 06, 2025 Dr. Maddie Hendrickson DO Emergency Provider Active S tart: March 06, 2025 Dr. Hansel Gillis MD Admit Provider Active St art: March 06, 2025 Dr. Hansel Gillis MD Other Provider Active St art: March 06, 2025 Dr. Fernandez Santana MD Attending Provider Active Start: March 06, 2025 Dr. Fernandez Santana MD Other Provider Active Sta rt: March 06, 2025 Dr. Tracey Orantes MD Other Provider Active St art: March 06, 2025 Dr. Romana Dudley MD Other Provider Active Star t: March 06, 2025 Team Status: Active Member Role Status Dates Dr. Riaz Garrison MD Primary Care Provider Active Start: March 06, 2025 Dr. Maddie Hendrickson , DO Emergency Provider Active S tart: March 06, 2025 Dr. Hansel Gillis MD Admit Provider Active St art: March 06, 2025 Dr. Hansel Gillis MD Other Provider Active St art: March 06, 2025 Dr. Fernandez Santana MD Other Provider Active Sta rt: March 06, 2025 Dr. Tracey Orantes MD Other Provider Active St art: March 06, 2025 Dr. Romana Dudley MD Attending Provider Active Start: March 06, 2025 Dr. Romana Dudley MD Other Provider Active Star t: March 06, 2025 Team Status: Active Member Role Status Dates Dr. Riaz Garrison MD Primary Care Provider Active Start: March 07, 2025 Dr. Maddie Hendrickson DO Emergency Provider Active S tart: March 07, 2025 Dr. Hansel Gillis MD Admit Provider Active St art: March 07, 2025 Dr. Hansel Gillis MD Other Provider Active St art: March 07, 2025 Dr. Fernandez Santana MD Other Provider Active Sta rt: March 07, 2025 Dr. Tracey Orantes MD Other Provider Active St art: March 07, 2025 Dr. Romana Dudley MD Attending Provider Active Start: March 07, 2025 Dr. Romana Dudley MD Other Provider Active Star t: March 07, 2025 Team Status: Active Member Role Status Dates Dr. Riaz Garrison MD Primary Care Provider Active Start: March 07, 2025 Dr. Maddie Hendrickson DO Emergency Provider Active S tart: March 07, 2025 Dr. Hansel Gillis MD Admit Provider Active St art: March 07, 2025 Dr. Hansel Gillis MD Other Provider Active St art: March 07, 2025 Dr. Fernandez Santana MD Attending Provider Active Start: March 07, 2025 Dr. Fernandez Santana MD Other Provider Active Sta rt: March 07, 2025 Dr. Tracey Orantes MD Other Provider Active St art: March 07, 2025 Dr. Romana Dudley MD Other Provider Active Star t: March 07, 2025 Dr. Natanael Christensen MD Other Provider Active Start: March 07, 2025 Team Status: Active Member Role Status Dates Dr. Riaz Garrison MD Primary Care Provider Active Start: March 08, 2025 Dr. Maddie Hendrickson DO Emergency Provider Active S tart: March 08, 2025 Dr. Hansel Gillis MD Admit Provider Active St art: March 08, 2025 Dr. Hansel Gillis MD Other Provider Active St art: March 08, 2025 Dr. Tracey Orantes MD Attending Provider Active Start: March 08, 2025 Dr. Tracey Orantes MD Other Provider Active St art: March 08, 2025 Dr. Romana Duldey MD Other Provider Active Star t: March 08, 2025 Dr. Natanael Christensen MD Other Provider Active Start: March 08, 2025 Dr. Fernandez Santana MD Other Provider Active Sta rt: March 08, 2025 Team Status: Active Member Role Status Dates Dr. Riaz Garrison MD Primary Care Provider Active Start: March 09, 2025 Dr. Maddie Hendrickson DO Emergency Provider Active S tart: March 09, 2025 Dr. Hansel Gillis MD Admit Provider Active St art: March 09, 2025 Dr. Hansel Gillis MD Other Provider Active St art: March 09, 2025 Dr. Tracey Orantes MD Other Provider Active St art: March 09, 2025 Dr. Romana Dudley MD Other Provider Active Star t: March 09, 2025 Dr. Natanael Christensen MD Other Provider Active Start: March 09, 2025 Dr. Fernandez Santana MD Other Provider Active Sta rt: March 09, 2025 Dr. Luiz Painter DO Attending Provider Active S tart: March 09, 2025 Team Status: Active Member Role Status Dates Dr. Riaz Garrison MD Primary Care Provider Active Start: March 09, 2025 Dr. Maddie Hendrickson DO Emergency Provider Active S tart: March 09, 2025 Dr. Hansel Gillis MD Admit Provider Active St art: March 09, 2025 Dr. Hansel Gillis MD Other Provider Active St art: March 09, 2025 Dr. Tracey Orantes MD Attending Provider Active Start: March 09, 2025 Dr. Tracey Orantes MD Other Provider Active St art: March 09, 2025 Dr. Romana Dudley MD Other Provider Active Star t: March 09, 2025 Dr. Natanael Christensen MD Other Provider Active Start: March 09, 2025 Dr. Fernandez Santana MD Other Provider Active Sta rt: March 09, 2025 Team Status: Active Member Role Status Dates Dr. Riaz Garrison MD Primary Care Provider Active Start: March 09, 2025 Dr. Maddie Hendrickson , Emergency Provider Active S tart: March 09, 2025 Dr. Hansel Gillis MD Admit Provider Active St art: March 09, 2025 Dr. Hansel Gillis MD Other Provider Active St art: March 09, 2025 Dr. Tracey Orantes MD Referring Provider Active Start: March 09, 2025 Dr. Tracey Orantes MD Other Provider Active St art: March 09, 2025 Dr. Romana Dudley MD Other Provider Active Star t: March 09, 2025 Dr. Natanael Christensen MD Other Provider Active Start: March 09, 2025 Dr. Fernandez Santana MD Other Provider Active Sta rt: March 09, 2025 Dr. Luiz Painter DO Attending Provider Active S tart: March 09, 2025 Team Status: Inactive Member Role Status Dates Dr. Riaz Garrison MD Primary Care Provider Active Start: March 12, 2025 End: March 12, 2025 Dr. Riaz Garrison MD Referring Provider Active Start: March 12, 2025 End: March 12, 2025 Vipul CARRERA, PA Attending Provider Active St art: March 12, 2025 End: March 12, 2025 Team Status: Inactive Member Role Status Dates Dr. Riaz Garrison MD Primary Care Provider Active Start: March 15, 2025 End: March 15, 2025 Dr. Riaz Garrison MD Referring Provider Active Start: March 15, 2025 End: March 15, 2025 ANNA Cook Attending Provider Active Start: March 15, 2025 End: March 15, 2025 Team Status: Active Member Role Status Dates Dr. Riaz Garrison MD Primary Care Provider Active Start: March 18, 2025 Dr. Riaz Garrison MD Attending Provider Active Start: March 18, 2025 Team Status: Inactive Member Role Status Dates Dr. Riaz Garrison MD Primary Care Provider Active Start: March 19, 2025 End: March 19, 2025 Dr. Riaz Garrison MD Referring Provider Active Start: March 19, 2025 End: March 19, 2025 Laura Farias PA, PA Attending Provider Active Start: March 19, 2025 End: March 19, 2025 Team Status: Inactive Member Role Status Dates Dr. Riaz Garrison MD Primary Care Provider Active Start: March 23, 2025 End: March 23, 2025 Dr. Riaz Garrison MD Referring Provider Active Start: March 23, 2025 End: March 23, 2025 Denise Cruz ELECTROCARDIOGRAPH REPAIRER, ELECTROCARDIOGRAPH REPAIRER-C Attending Provider Active Start: March 23, 2025 End: March 23, 2025 Chief Of Staff Doctor Relationship Specialty Start Date End Date Riaz Garrison MD [address] [place], [place] [id number] PCP - General Internal Medicine 05/22/23 Nabli Pierre MD [address] [facility] [place] [address] [place] [address] Cardiology 02/26/24 Luiz Painter [address] [place] [id number] Internal Medicine 02/26/24 Team Status: Inactive Member Role/Relationship Status Dates Dr. Riaz Garrison MD Primary Care Provider Active Start: January 29, 2025 End: January 29, 2025 Dr. Wellington Lay DO Attending Provider Active Start : January 29, 2025 End: January 29, 2025 Dr. Wellington Lay DO Emergency Provider Active Start : January 29, 2025 End: January 29, 2025 Team Status: Inactive Member Role/Relationship Status Dates Dr. Riaz Garrison MD Primary Care Provider Active Start: February 01, 2025 End: February 01, 2025 Dr. Riaz Garrison MD Attending Provider Active Start: February 01, 2025 End: February 01, 2025 Dr. Riaz Garrison MD Referring Provider Active Start: February 01, 2025 End: February 01, 2025 Team Status: Inactive Member Role/Relationship Status Dates Dr. Riaz Garrison MD Primary Care Provider Active Start: February 01, 2025 End: February 01, 2025 Dr. Riaz Garrison MD Attending Provider Active Start: February 01, 2025 End: February 01, 2025 Team Status: Inactive Member Role/Relationship Status Dates Dr. Riaz Garrison MD Primary Care Provider Active Start: February 04, 2025 End: February 04, 2025 Dr. Riaz Garrison MD Referring Provider Active Start: February 04, 2025 End: February 04, 2025 Laura Farias PA, PA Attending Provider Active Start: February 04, 2025 End: February 04, 2025 Team Status: Inactive Member Role/Relationship Status Dates Dr. Riaz Garrison MD Primary Care Provider Active Start: February 06, 2025 End: February 06, 2025 Dr. Riaz Garrison MD Attending Provider Active Start: February 06, 2025 End: February 06, 2025 Dr. Riaz Garrison MD Referring Provider Active Start: February 06, 2025 End: February 06, 2025 Team Status: Inactive Member Role/Relationship Status Dates Dr. Riaz Garrison MD Primary Care Provider Active Start: February 15, 2025 End: February 18, 2025 Dr. Dinesh Comer MD Emergency Provider Active S tart: February 15, 2025 End: February 18, 2025 Dr. Raymond Teague DO Admit Provider Active Start: February 15, 2025 End: February 18, 2025 Dr. Raymond Teague DO Other Provider Active Start: February 15, 2025 End: February 18, 2025 Dr. Inocencio Perkins DO Attending Provider Active Start: February 15, 2025 End: February 18, 2025 Team Status: Active Member Role/Relationship Status Dates Dr. Riaz Garrison MD Primary Care Provider Active Start: February 15, 2025 Dr. Nabil Pierre MD Attending Provider Active S tart: February 15, 2025 Team Status: Active Member Role/Relationship Status Dates Dr. Riaz Garrison MD Primary Care Provider Active Start: February 16, 2025 Dr. Dinesh Comer MD Emergency Provider Active S tart: February 16, 2025 Dr. Raymond Teague DO Admit Provider Active Start: February 16, 2025 Dr. Raymond Teague DO Other Provider Active Start: February 16, 2025 Oscar Perales MD Other Provider Active Start: 2024 Dr. Candy Castillo MD Other Provider Active Start: February 16, 2025 Jannette Burnett MD Other Provider Active Start : February 16, 2025 Dr. Christine Murray DO Other Provider Active St art: February 16, 2025 Dr. Torri Van MD Other Provider Active Start: February 16, 2025 Dr. Carlos Medellin MD Other Provider Active Sta rt: February 16, 2025 Dr. Mary Ellen Ramirez MD Other Provider Active Start : February 16, 2025 Dr. Ulises Martin MD Other Provider Active Start: February 16, 2025 Dr. Mike Caballero MD Other Provider Active Start : February 16, 2025 Dr. Rip Mcmanus MD Other Provider Active Sta rt: February 16, 2025 Beverley San MD Other Provider Active Start : February 16, 2025 Dr. Vipul Sherwood MD Other Provider Active St art: February 16, 2025 Dr. Cindy Urban MD Other Provider Active Start : February 16, 2025 Dr. Bonnie Wills MD Other Provider Active Sta rt: February 16, 2025 Dr. Shira José MD Other Provider Active Start: February 16, 2025 Dr. Ortiz Wilkinson MD Other Provider Active St art: February 16, 2025 Dr. Jean Marie Anderson MD Other Provider Active Star t: February 16, 2025 Dr. Elmer Aguirre MD Other Provider Active St art: February 16, 2025 Dr. Yari Grayson MD Other Provider Active Start: February 16, 2025 Alex Villalba MD Other Provider Active Start: February 16, 2025 Dr. Inocencio Perkins DO Attending Provider Active Start: February 16, 2025 Dr. Inocencio Pekrins DO Other Provider Active S tart: February 16, 2025 Team Status: Active Member Role/Relationship Status Dates Dr. Riaz Garrison MD Primary Care Provider Active Start: February 17, 2025 Dr. Dinesh Comer MD Emergency Provider Active S tart: February 17, 2025 Dr. Raymond Teague , DO Admit Provider Active Start: February 17, 2025 Dr. Raymond Teague , Other Provider Active Start: February 17, 2025 Dr. Inocencio Perkins DO Attending Provider Active Start: February 17, 2025 Dr. Inocencio Perkins , Other Provider Active S tart: February 17, 2025 Team Status: Active Member Role/Relationship Status Dates Dr. Riaz Garrison MD Primary Care Provider Active Start: February 18, 2025 Dr. Dinesh Comer MD Emergency Provider Active S tart: February 18, 2025 Dr. Raymond Teague , Admit Provider Active Start: February 18, 2025 Dr. Raymond Teague DO Other Provider Active Start: February 18, 2025 Dr. Inocencio Perkins DO Attending Provider Active Start: February 18, 2025 Dr. Inocencio Perkins DO Other Provider Active S tart: February 18, 2025 Team Status: Inactive Member Role/Relationship Status Dates Dr. Riaz Garrison MD Primary Care Provider Active Start: February 19, 2025 End: February 22, 2025 Dr. Enzo Chu DO Emergency Provider Active Start: February 19, 2025 End: February 22, 2025 Dr. Hansel Gillis MD Admit Provider Active St art: February 19, 2025 End: February 22, 2025 Dr. Hansel Gillis MD Referring Provider Active Start: February 19, 2025 End: February 22, 2025 Dr. Hansel Gillis MD Other Provider Active St art: February 19, 2025 End: February 22, 2025 Dr. Inocencio Perkins DO Attending Provider Active Start: February 19, 2025 End: February 22, 2025 Dr. Tracey Orantes MD Other Provider Active St art: February 19, 2025 End: February 22, 2025 Team Status: Active Member Role/Relationship Status Dates Dr. Riaz Garrison MD Primary Care Provider Active Start: February 19, 2025 Dr. Enzo Chu DO Emergency Provider Active Start: February 19, 2025 Dr. Hansel Gillis MD Admit Provider Active St art: February 19, 2025 Dr. Hansel Gillis MD Attending Provider Active Start: February 19, 2025 Dr. Hansel Gillis MD Other Provider Active St art: February 19, 2025 Team Status: Active Member Role/Relationship Status Dates Dr. Riaz Garrison MD Primary Care Provider Active Start: February 20, 2025 Dr. Enzo Chu , DO Emergency Provider Active Start: February 20, 2025 Dr. Hansel Gillis MD Admit Provider Active St art: February 20, 2025 Dr. Hansel Gillis MD Other Provider Active St art: February 20, 2025 Dr. Inocencio Perkins , DO Attending Provider Active Start: February 20, 2025 Dr. Inocencio Perkins , DO Other Provider Active S tart: February 20, 2025 Dr. Tracey Orantes MD Other Provider Active St art: February 20, 2025 Team Status: Active Member Role/Relationship Status Dates Dr. Riaz Garrison MD Primary Care Provider Active Start: February 21, 2025 Dr. Enzo Chu DO Emergency Provider Active Start: February 21, 2025 Dr. Hansel Gillis MD Admit Provider Active St art: February 21, 2025 Dr. Hnasel Gillis MD Other Provider Active St art: February 21, 2025 Dr. Inocencio Perkins DO Attending Provider Active Start: February 21, 2025 Dr. Inocencio Perkins , DO Other Provider Active S tart: February 21, 2025 Dr. Tracey Orantes MD Other Provider Active St art: February 21, 2025 Team Status: Active Member Role/Relationship Status Dates Dr. Riaz Garrison MD Primary Care Provider Active Start: February 22, 2025 Dr. Enzo Chu DO Emergency Provider Active Start: February 22, 2025 Dr. Hansel Gillis MD Admit Provider Active St art: February 22, 2025 Dr. Hansel Gillis MD Other Provider Active St art: February 22, 2025 Dr. Inocencio Perkins DO Attending Provider Active Start: February 22, 2025 Dr. Inocencio Perkins , DO Other Provider Active S tart: February 22, 2025 Dr. Tracey Orantes MD Other Provider Active St art: February 22, 2025 Team Status: Inactive Member Role/Relationship Status Dates Dr. Raiz Garrison MD Primary Care Provider Active Start: March 03, 2025 End: March 03, 2025 Vipul CARRERA PA Attending Provider Active St art: March 03, 2025 End: March 03, 2025 Vipul CARRERA PA Referring Provider Active St art: March 03, 2025 End: March 03, 2025 Team Status: Inactive Member Role/Relationship Status Dates Dr. Riaz Garrison MD Primary Care Provider Active Start: March 04, 2025 End: March 04, 2025 Dr. Riaz Garrison MD Referring Provider Active Start: March 04, 2025 End: March 04, 2025 Puneet CARRERA PA Attending Provider Active Sta rt: March 04, 2025 End: March 04, 2025 Team Status: Inactive Member Role/Relationship Status Dates Dr. Riaz Garrison MD Primary Care Provider Active Start: March 04, 2025 End: March 04, 2025 Puneet CARRERA PA Attending Provider Active Sta rt: March 04, 2025 End: March 04, 2025 Puneet CARRERA PA Referring Provider Active Sta rt: March 04, 2025 End: March 04, 2025 Team Status: Inactive Member Role/Relationship Status Dates Dr. Riaz Garrison MD Primary Care Provider Active Start: March 04, 2025 End: March 09, 2025 Dr. Maddie Hendrickson DO Emergency Provider Active S tart: March 04, 2025 End: March 09, 2025 Dr. Hansel Gillis MD Admit Provider Active St art: March 04, 2025 End: March 09, 2025 Dr. Hansel Gillis MD Other Provider Active St art: March 04, 2025 End: March 09, 2025 Dr. Tracey Orantes MD Attending Provider Active Start: March 04, 2025 End: March 09, 2025 Dr. Tracey Orantes MD Other Provider Active St art: March 04, 2025 End: March 09, 2025 Dr. Romana Dudley MD Other Provider Active Star t: March 04, 2025 End: March 09, 2025 Dr. Natanael Christensen MD Other Provider Active Start: March 04, 2025 End: March 09, 2025 Dr. Fernandez Santana MD Other Provider Active Sta rt: March 04, 2025 End: March 09, 2025 Team Status: Active Member Role/Relationship Status Dates Dr. Riaz Garrison MD Primary Care Provider Active Start: March 04, 2025 Dr. Maddie Hendrickson , DO Emergency Provider Active S tart: March 04, 2025 Dr. Hansel Gillis MD Admit Provider Active St art: March 04, 2025 Dr. Hansel Gillis MD Attending Provider Active Start: March 04, 2025 Dr. Hansel Gillis MD Other Provider Active St art: March 04, 2025 Team Status: Active Member Role/Relationship Status Dates Dr. Riaz Garrison MD Primary Care Provider Active Start: March 05, 2025 Dr. Maddie Hendrickson DO Emergency Provider Active S tart: March 05, 2025 Dr. Hansel Gillis MD Admit Provider Active St art: March 05, 2025 Dr. Hansel Gillis MD Other Provider Active St art: March 05, 2025 Dr. Guillermo Briones MD Other Provider Active Star t: March 05, 2025 Dr. Tracey Orantes MD Attending Provider Active Start: March 05, 2025 Dr. Tracey Orantes MD Other Provider Active St art: March 05, 2025 Team Status: Active Member Role/Relationship Status Dates Dr. Riaz Garrison MD Primary Care Provider Active Start: March 06, 2025 Dr. Maddie Hendrickson DO Emergency Provider Active S tart: March 06, 2025 Dr. Hansel Gillis MD Admit Provider Active St art: March 06, 2025 Dr. Hansel Gillis MD Other Provider Active St art: March 06, 2025 Dr. Fernandez Santana MD Attending Provider Active Start: March 06, 2025 Dr. Fernandez Santana MD Other Provider Active Sta rt: March 06, 2025 Dr. Tracey Orantes MD Other Provider Active St art: March 06, 2025 Dr. Romana Dudley MD Other Provider Active Star t: March 06, 2025 Team Status: Active Member Role/Relationship Status Dates Dr. Riaz Garrison MD Primary Care Provider Active Start: March 06, 2025 Dr. Maddie Hendrickson DO Emergency Provider Active S tart: March 06, 2025 Dr. Hansel Gillis MD Admit Provider Active St art: March 06, 2025 Dr. Hansel Gillis MD Other Provider Active St art: March 06, 2025 Dr. Fernandez Santana MD Other Provider Active Sta rt: March 06, 2025 Dr. Tracey Orantes MD Other Provider Active St art: March 06, 2025 Dr. Romana Dudley MD Attending Provider Active Start: March 06, 2025 Dr. Romana Dudley MD Other Provider Active Star t: March 06, 2025 Team Status: Active Member Role/Relationship Status Dates Dr. Riaz Garrison MD Primary Care Provider Active Start: March 07, 2025 Dr. Maddie Hendrickson DO Emergency Provider Active S tart: March 07, 2025 Dr. Hansel Gillis MD Admit Provider Active St art: March 07, 2025 Dr. Hansel Gillis MD Other Provider Active St art: March 07, 2025 Dr. Fernandez Santana MD Other Provider Active Sta rt: March 07, 2025 Dr. Tracey Orantes MD Other Provider Active St art: March 07, 2025 Dr. Romana Dudley MD Attending Provider Active Start: March 07, 2025 Dr. Romana Dudley MD Other Provider Active Star t: March 07, 2025 Team Status: Active Member Role/Relationship Status Dates Dr. Riaz Garrison MD Primary Care Provider Active Start: March 07, 2025 Dr. Maddie Hendrickson DO Emergency Provider Active S tart: March 07, 2025 Dr. Hansel Gillis MD Admit Provider Active St art: March 07, 2025 Dr. Hansel Gillis MD Other Provider Active St art: March 07, 2025 Dr. Fernandez Santana MD Attending Provider Active Start: March 07, 2025 Dr. Fernandez Santana MD Other Provider Active Sta rt: March 07, 2025 Dr. Tracey Orantes MD Other Provider Active St art: March 07, 2025 Dr. Romana Dudley MD Other Provider Active Star t: March 07, 2025 Dr. Natanael Christensen MD Other Provider Active Start: March 07, 2025 Team Status: Active Member Role/Relationship Status Dates Dr. Riaz Garrison MD Primary Care Provider Active Start: March 08, 2025 Dr. Maddie Hendrickson DO Emergency Provider Active S tart: March 08, 2025 Dr. Hansel Gillis MD Admit Provider Active St art: March 08, 2025 Dr. Hansel Gillis MD Other Provider Active St art: March 08, 2025 Dr. Tracey Orantes MD Attending Provider Active Start: March 08, 2025 Dr. Tracey Orantes MD Other Provider Active St art: March 08, 2025 Dr. Romana Dudley MD Other Provider Active Star t: March 08, 2025 Dr. Natanael Christensen MD Other Provider Active Start: March 08, 2025 Dr. Fernandez Santana MD Other Provider Active Sta rt: March 08, 2025 Team Status: Active Member Role/Relationship Status Dates Dr. Riaz Garrison MD Primary Care Provider Active Start: March 09, 2025 Dr. Maddie Hendrickson DO Emergency Provider Active S tart: March 09, 2025 Dr. Hansel Gillis MD Admit Provider Active St art: March 09, 2025 Dr. Hansel Gillis MD Other Provider Active St art: March 09, 2025 Dr. Tracey Orantes MD Referring Provider Active Start: March 09, 2025 Dr. Tracey Orantes MD Other Provider Active St art: March 09, 2025 Dr. Romana Dudley MD Other Provider Active Star t: March 09, 2025 Dr. Natanael Christensen MD Other Provider Active Start: March 09, 2025 Dr. Fernandez Santana MD Other Provider Active Sta rt: March 09, 2025 Dr. Luiz Painter DO Attending Provider Active S tart: March 09, 2025 Team Status: Active Member Role/Relationship Status Dates Dr. Riaz Garrison MD Primary Care Provider Active Start: March 09, 2025 Dr. Maddie Hendrickson DO Emergency Provider Active S tart: March 09, 2025 Dr. Hansel Gillis MD Admit Provider Active St art: March 09, 2025 Dr. Hansel Gillis MD Other Provider Active St art: March 09, 2025 Dr. Tracey Orantes MD Attending Provider Active Start: March 09, 2025 Dr. Tracey Orantes MD Other Provider Active St art: March 09, 2025 Dr. Romana Dudley MD Other Provider Active Star t: March 09, 2025 Dr. Natanael Christensen MD Other Provider Active Start: March 09, 2025 Dr. Fernandez Santana MD Other Provider Active Sta rt: March 09, 2025 Team Status: Inactive Member Role/Relationship Status Dates Dr. Riaz Garrison MD Primary Care Provider Active Start: March 12, 2025 End: March 12, 2025 Dr. Riaz Garrison MD Referring Provider Active Start: March 12, 2025 End: March 12, 2025 Vipul CARRERA, PA Attending Provider Active St art: March 12, 2025 End: March 12, 2025 Team Status: Inactive Member Role/Relationship Status Dates Dr. Riaz Garrison MD Primary Care Provider Active Start: March 15, 2025 End: March 15, 2025 Dr. Riaz Garrison MD Referring Provider Active Start: March 15, 2025 End: March 15, 2025 ANNA Cook Attending Provider Active Start: March 15, 2025 End: March 15, 2025 Team Status: Active Member Role/Relationship Status Dates Dr. Riaz Garrison MD Primary Care Provider Active Start: March 18, 2025 Dr. Riaz Garrison MD Attending Provider Active Start: March 18, 2025 Team Status: Inactive Member Role/Relationship Status Dates Dr. Riaz Garrison MD Primary Care Provider Active Start: March 19, 2025 End: March 19, 2025 Dr. Riaz Garrison MD Referring Provider Active Start: March 19, 2025 End: March 19, 2025 Laura Farias PA, PA Attending Provider Active Start: March 19, 2025 End: March 19, 2025 Team Status: Inactive Member Role/Relationship Status Dates Dr. Riaz Garrison MD Primary Care Provider Active Start: March 23, 2025 End: March 23, 2025 Dr. Riaz Garrison MD Referring Provider Active Start: March 23, 2025 End: March 23, 2025 Denise Cruz NP, ELECTROCARDIOGRAPH REPAIRER-C Attending Provider Active Start: March 23, 2025 End: March 23, 2025 Team Status: Inactive Member Role/Relationship Status Dates Dr. Riaz Garrison MD Primary Care Provider Active Start: April 05, 2025 End: April 05, 2025 Dr. Riaz Garrison MD Referring Provider Active Start: April 05, 2025 End: April 05, 2025 Bijal Deluna NP-C Attending Provider Active Start: April 05, 2025 End: April 05, 2025 Team Status: Inactive Member Role/Relationship Status Dates Dr. Riaz Garrison MD Primary Care Provider Active Start: April 05, 2025 End: April 05, 2025 Bijal Deluna ELECTROCARDIOGRAPH REPAIRER-C Attending Provider Active Start: April 05, 2025 End: April 05, 2025 Bijal Deluna NP-C Referring Provider Active Start: April 05, 2025 End: April 05, 2025 Team Status: Inactive Member Role/Relationship Status Dates Dr. Riaz Garrison MD Primary Care Provider Active Start: April 27, 2025 End: April 27, 2025 Dr. Riaz Garrison MD Attending Provider Active Start: April 27, 2025 End: April 27, 2025 Dr. Riaz Garrison MD Referring Provider Active Start: April 27, 2025 End: April 27, 2025 Team Status: Inactive Member Role/Relationship Status Dates Dr. Riaz Garrison MD Referring Provider Active Start: May 03, 2025 End: May 03, 2025 Nicolas Alarcon MD Attending Provider Active St art: May 03, 2025 End: May 03, 2025 Team Status: Inactive Member Role/Relationship Status Dates Dr. Nabil Pierre MD Attending Provider Active S tart: May 03, 2025 End: May 03, 2025 Team Status: Inactive Member Role/Relationship Status Dates Dr. Riaz Garrison MD Referring Provider Active Start: May 19, 2025 End: May 19, 2025 Kisha Silveira NP-C Attending Provider Active Start: May 19, 2025 End: May 19, 2025 Team Status: Active Member Role/Relationship Status Dates Dr. Riaz Garrison MD Primary Care Provider Active Team Status: Inactive Member Role/Relationship Status Dates Kisha Silveira ELECTROCARDIOGRAPH REPAIRER-C Attending Provider Active Start: May 19, 2025 End: May 19, 2025 Kisha Silveira NP-C Referring Provider Active Start: May 19, 2025 End: May 19, 2025 Team Status: Active Member Role/Relationship Status Dates Kisha Silveira NP-C Attending Provider Active Start: May 28, 2025 Kisha Silveira NP-C Referring Provider Active Start: May 28, 2025 Dr. Riaz Garrison MD Primary Care Provider Active Start: May 28, 2025 Dr. Jonny Abebe MD Other Provider Active Start: May 28, 2025 Team Status: Inactive Member Role/Relationship Status Dates Dr. Riaz Garrison MD Primary Care Provider Active Start: May 31, 2025 End: May 31, 2025 Dr. Riaz Garrison MD Referring Provider Active Start: May 31, 2025 End: May 31, 2025 Mike Stearns NP, ELECTROCARDIOGRAPH REPAIRER-C Attending Provider Active S tart: May 31, 2025 End: May 31, 2025 Team Status: Inactive Member Role/Relationship Status Dates Dr. Riaz Garrison MD Primary Care Provider Active Start: February 04, 2025 End: February 04, 2025 Dr. Riaz Garrison MD Referring Provider Active Start: February 04, 2025 End: February 04, 2025 Laura Farias PA, PA Attending Provider Active Start: February 04, 2025 End: February 04, 2025 Team Status: Inactive Member Role/Relationship Status Dates Dr. Riaz Garrison MD Primary Care Provider Active Start: February 06, 2025 End: February 06, 2025 Dr. Riaz Garrison MD Attending Provider Active Start: February 06, 2025 End: February 06, 2025 Dr. Riaz Garrison MD Referring Provider Active Start: February 06, 2025 End: February 06, 2025 Team Status: Inactive Member Role/Relationship Status Dates Dr. Riaz Garrison MD Primary Care Provider Active Start: February 15, 2025 End: February 18, 2025 Dr. Dinesh Comer MD Emergency Provider Active S tart: February 15, 2025 End: February 18, 2025 Dr. Raymond Teague DO Admit Provider Active Start: February 15, 2025 End: February 18, 2025 Dr. Raymond Teague DO Other Provider Active Start: February 15, 2025 End: February 18, 2025 Dr. Inocencio Perkins DO Attending Provider Active Start: February 15, 2025 End: February 18, 2025 Team Status: Active Member Role/Relationship Status Dates Dr. Riaz Garrison MD Primary Care Provider Active Start: February 15, 2025 Dr. Nabil Pierre MD Attending Provider Active S tart: February 15, 2025 Team Status: Active Member Role/Relationship Status Dates Dr. Riaz Garrison MD Primary Care Provider Active Start: February 16, 2025 Dr. Dinesh Comer MD Emergency Provider Active S tart: February 16, 2025 Dr. Raymond Teague DO Admit Provider Active Start: February 16, 2025 Dr. Raymond Teague DO Other Provider Active Start: February 16, 2025 Oscar Perales MD Other Provider Active Start: 2024 Dr. Candy Castillo MD Other Provider Active Start: February 16, 2025 Jannette Burnett MD Other Provider Active Start : February 16, 2025 Dr. Christine Murray DO Other Provider Active St art: February 16, 2025 Dr. Torri Van MD Other Provider Active Start: February 16, 2025 Dr. Carlos Medellin MD Other Provider Active Sta rt: February 16, 2025 Dr. Mary Ellen Ramirez MD Other Provider Active Start : February 16, 2025 Dr. Ulises Martin MD Other Provider Active Start: February 16, 2025 Dr. Mike Caballero MD Other Provider Active Start : February 16, 2025 Dr. Rip Mcmanus MD Other Provider Active Sta rt: February 16, 2025 Beverley San MD Other Provider Active Start : February 16, 2025 Dr. Vipul Sherwood MD Other Provider Active St art: February 16, 2025 Dr. Cindy Urban MD Other Provider Active Start : February 16, 2025 Dr. Bonnie Wills MD Other Provider Active Sta rt: February 16, 2025 Dr. Shira José MD Other Provider Active Start: February 16, 2025 Dr. Ortiz Wilkinson MD Other Provider Active St art: February 16, 2025 Dr. Jean Marie Anderson MD Other Provider Active Star t: February 16, 2025 Dr. Elmer Aguirre MD Other Provider Active St art: February 16, 2025 Dr. Yari Grayson MD Other Provider Active Start: February 16, 2025 Alex Villalba MD Other Provider Active Start: February 16, 2025 Dr. Inocencio Perkins , DO Attending Provider Active Start: February 16, 2025 Dr. Inocencio Perkins , DO Other Provider Active S tart: February 16, 2025 Team Status: Active Member Role/Relationship Status Dates Dr. Riaz Garrison MD Primary Care Provider Active Start: February 17, 2025 Dr. Dinesh Comer MD Emergency Provider Active S tart: February 17, 2025 Dr. Raymond Teague , DO Admit Provider Active Start: February 17, 2025 Dr. Raymond Teague , DO Other Provider Active Start: February 17, 2025 Dr. Inocencio Perkins , DO Attending Provider Active Start: February 17, 2025 Dr. Inocencio Perkins , DO Other Provider Active S tart: February 17, 2025 Team Status: Active Member Role/Relationship Status Dates Dr. Riaz Garrison MD Primary Care Provider Active Start: February 18, 2025 Dr. Dinesh Comer MD Emergency Provider Active S tart: February 18, 2025 Dr. Raymond Teague , DO Admit Provider Active Start: February 18, 2025 Dr. Raymond Teague , DO Other Provider Active Start: February 18, 2025 Dr. Inocencio Perkins , DO Attending Provider Active Start: February 18, 2025 Dr. Inocencio Perkins , DO Other Provider Active S tart: February 18, 2025 Team Status: Inactive Member Role/Relationship Status Dates Dr. Riaz Garrison MD Primary Care Provider Active Start: February 19, 2025 End: February 22, 2025 Dr. Enzo Chu DO Emergency Provider Active Start: February 19, 2025 End: February 22, 2025 Dr. Hansel Gillis MD Admit Provider Active St art: February 19, 2025 End: February 22, 2025 Dr. Hansel Gillis MD Referring Provider Active Start: February 19, 2025 End: February 22, 2025 Dr. Hansel Gillis MD Other Provider Active St art: February 19, 2025 End: February 22, 2025 Dr. Inocencio Perkins DO Attending Provider Active Start: February 19, 2025 End: February 22, 2025 Dr. Tracey Orantes MD Other Provider Active St art: February 19, 2025 End: February 22, 2025 Team Status: Active Member Role/Relationship Status Dates Dr. Riaz Garrison MD Primary Care Provider Active Start: February 19, 2025 Dr. Enzo Chu DO Emergency Provider Active Start: February 19, 2025 Dr. Hansel Gillis MD Admit Provider Active St art: February 19, 2025 Dr. Hansel Gillis MD Attending Provider Active Start: February 19, 2025 Dr. Hansel Gillis MD Other Provider Active St art: February 19, 2025 Team Status: Active Member Role/Relationship Status Dates Dr. Riaz Garrison MD Primary Care Provider Active Start: February 20, 2025 Dr. Enzo Chu DO Emergency Provider Active Start: February 20, 2025 Dr. Hansel Gillis MD Admit Provider Active St art: February 20, 2025 Dr. Hansel Gillis MD Other Provider Active St art: February 20, 2025 Dr. Inocencio Perkins DO Attending Provider Active Start: February 20, 2025 Dr. Inocencio Perkins DO Other Provider Active S tart: February 20, 2025 Dr. Tracey Orantes MD Other Provider Active St art: February 20, 2025 Team Status: Active Member Role/Relationship Status Dates Dr. Riaz Garrison MD Primary Care Provider Active Start: February 21, 2025 Dr. Enzo Chu DO Emergency Provider Active Start: February 21, 2025 Dr. Hansel Gillis MD Admit Provider Active St art: February 21, 2025 Dr. Hansel Gillis MD Other Provider Active St art: February 21, 2025 Dr. Inocencio Perkins , Attending Provider Active Start: February 21, 2025 Dr. Inocencio Perkins , DO Other Provider Active S tart: February 21, 2025 Dr. Tracey Orantes MD Other Provider Active St art: February 21, 2025 Team Status: Active Member Role/Relationship Status Dates Dr. Riaz Garrison MD Primary Care Provider Active Start: February 22, 2025 Dr. Enzo Chu , Emergency Provider Active Start: February 22, 2025 Dr. Hansel Gillis MD Admit Provider Active St art: February 22, 2025 Dr. Hansel Gillis MD Other Provider Active St art: February 22, 2025 Dr. Inocencio Perkins DO Attending Provider Active Start: February 22, 2025 Dr. Inocencio Perkins , Other Provider Active S tart: February 22, 2025 Dr. Tracey Orantes MD Other Provider Active St art: February 22, 2025 Team Status: Inactive Member Role/Relationship Status Dates Dr. Riaz Garrison MD Primary Care Provider Active Start: March 03, 2025 End: March 03, 2025 Vipul CARRERA PA Attending Provider Active St art: March 03, 2025 End: March 03, 2025 Vipul CARRERA PA Referring Provider Active St art: March 03, 2025 End: March 03, 2025 Team Status: Inactive Member Role/Relationship Status Dates Dr. Riaz Garrison MD Primary Care Provider Active Start: March 04, 2025 End: March 04, 2025 Dr. Riaz Garrison MD Referring Provider Active Start: March 04, 2025 End: March 04, 2025 Puneet CARRERA PA Attending Provider Active Sta rt: March 04, 2025 End: March 04, 2025 Team Status: Inactive Member Role/Relationship Status Dates Dr. Riaz Garrison MD Primary Care Provider Active Start: March 04, 2025 End: March 04, 2025 Puneet CARRERA PA Attending Provider Active Sta rt: March 04, 2025 End: March 04, 2025 DEBI Bobby Referring Provider Active Sta rt: March 04, 2025 End: March 04, 2025 Team Status: Inactive Member Role/Relationship Status Dates Dr. Riaz Garrison MD Primary Care Provider Active Start: March 04, 2025 End: March 09, 2025 Dr. Maddie Hendrickson , DO Emergency Provider Active S tart: March 04, 2025 End: March 09, 2025 Dr. Hansel Gillis MD Admit Provider Active St art: March 04, 2025 End: March 09, 2025 Dr. Hansel Gillis MD Other Provider Active St art: March 04, 2025 End: March 09, 2025 Dr. Tracey Orantes MD Attending Provider Active Start: March 04, 2025 End: March 09, 2025 Dr. Tracey Orantes MD Other Provider Active St art: March 04, 2025 End: March 09, 2025 Dr. Romana Dudley MD Other Provider Active Star t: March 04, 2025 End: March 09, 2025 Dr. Natanael Christensen MD Other Provider Active Start: March 04, 2025 End: March 09, 2025 Dr. Fernandez Santana MD Other Provider Active Sta rt: March 04, 2025 End: March 09, 2025 Team Status: Active Member Role/Relationship Status Dates Dr. Riaz Garrison MD Primary Care Provider Active Start: March 04, 2025 Dr. Maddie Hendrickson DO Emergency Provider Active S tart: March 04, 2025 Dr. Hansel Gillis MD Admit Provider Active St art: March 04, 2025 Dr. Hansel Gillis MD Attending Provider Active Start: March 04, 2025 Dr. Hansel Gillis MD Other Provider Active St art: March 04, 2025 Team Status: Active Member Role/Relationship Status Dates Dr. Riaz Garrison MD Primary Care Provider Active Start: March 05, 2025 Dr. Maddie Hendrickson DO Emergency Provider Active S tart: March 05, 2025 Dr. Hansel Gillis MD Admit Provider Active St art: March 05, 2025 Dr. Hansel Gillis MD Other Provider Active St art: March 05, 2025 Dr. Guillermo Briones MD Other Provider Active Star t: March 05, 2025 Dr. Tracey Orantes MD Attending Provider Active Start: March 05, 2025 Dr. Tracey Orantes MD Other Provider Active St art: March 05, 2025 Team Status: Active Member Role/Relationship Status Dates Dr. Riaz Garrison MD Primary Care Provider Active Start: March 06, 2025 Dr. Maddie Hendrickson , DO Emergency Provider Active S tart: March 06, 2025 Dr. Hansel Gillis MD Admit Provider Active St art: March 06, 2025 Dr. Hansel Gillis MD Other Provider Active St art: March 06, 2025 Dr. Fernandez Santana MD Attending Provider Active Start: March 06, 2025 Dr. Fernandez Santana MD Other Provider Active Sta rt: March 06, 2025 Dr. Tracey Orantes MD Other Provider Active St art: March 06, 2025 Dr. Romana Dudley MD Other Provider Active Star t: March 06, 2025 Team Status: Active Member Role/Relationship Status Dates Dr. Riaz Garrison MD Primary Care Provider Active Start: March 06, 2025 Dr. Maddie Hendrickson DO Emergency Provider Active S tart: March 06, 2025 Dr. Hansel Gillis MD Admit Provider Active St art: March 06, 2025 Dr. Hansel Gillis MD Other Provider Active St art: March 06, 2025 Dr. Fernandez Santana MD Other Provider Active Sta rt: March 06, 2025 Dr. Tracey Orantes MD Other Provider Active St art: March 06, 2025 Dr. Romana Dudley MD Attending Provider Active Start: March 06, 2025 Dr. Romana Dudley MD Other Provider Active Star t: March 06, 2025 Team Status: Active Member Role/Relationship Status Dates Dr. Riaz Garrison MD Primary Care Provider Active Start: March 07, 2025 Dr. Maddie Hendrickson , Emergency Provider Active S tart: March 07, 2025 Dr. Hansel Gillis MD Admit Provider Active St art: March 07, 2025 Dr. Hansel Gillis MD Other Provider Active St art: March 07, 2025 Dr. Fernandez Santana MD Other Provider Active Sta rt: March 07, 2025 Dr. Tracey Orantes MD Other Provider Active St art: March 07, 2025 Dr. Romana Dudley MD Attending Provider Active Start: March 07, 2025 Dr. Romana Dudley MD Other Provider Active Star t: March 07, 2025 Team Status: Active Member Role/Relationship Status Dates Dr. Riaz Garrison MD Primary Care Provider Active Start: March 07, 2025 Dr. Maddie Hendrickson DO Emergency Provider Active S tart: March 07, 2025 Dr. Hansel Gillis MD Admit Provider Active St art: March 07, 2025 Dr. Hansel Gillis MD Other Provider Active St art: March 07, 2025 Dr. Fernandez Santana MD Attending Provider Active Start: March 07, 2025 Dr. Fernandez Santana MD Other Provider Active Sta rt: March 07, 2025 Dr. Tracey Orantes MD Other Provider Active St art: March 07, 2025 Dr. Romana Dudley MD Other Provider Active Star t: March 07, 2025 Dr. Natanael Christensen MD Other Provider Active Start: March 07, 2025 Team Status: Active Member Role/Relationship Status Dates Dr. Riaz Garrison MD Primary Care Provider Active Start: March 08, 2025 Dr. Maddie Hendrickson DO Emergency Provider Active S tart: March 08, 2025 Dr. Hansel Gillis MD Admit Provider Active St art: March 08, 2025 Dr. Hansel Gillis MD Other Provider Active St art: March 08, 2025 Dr. Tracey Orantes MD Attending Provider Active Start: March 08, 2025 Dr. Tracey Orantes MD Other Provider Active St art: March 08, 2025 Dr. Romana Dudley MD Other Provider Active Star t: March 08, 2025 Dr. Natanael Christensen MD Other Provider Active Start: March 08, 2025 Dr. Fernandez Santana MD Other Provider Active Sta rt: March 08, 2025 Team Status: Active Member Role/Relationship Status Dates Dr. Riaz Garrison MD Primary Care Provider Active Start: March 09, 2025 Dr. Maddie Hendrickson DO Emergency Provider Active S tart: March 09, 2025 Dr. Hansel Gillis MD Admit Provider Active St art: March 09, 2025 Dr. Hansel Gillis MD Other Provider Active St art: March 09, 2025 Dr. Tracey Orantes MD Referring Provider Active Start: March 09, 2025 Dr. Tracey Orantes MD Other Provider Active St art: March 09, 2025 Dr. Romana Dudley MD Other Provider Active Star t: March 09, 2025 Dr. Natanael Christensen MD Other Provider Active Start: March 09, 2025 Dr. Fernandez Santana MD Other Provider Active Sta rt: March 09, 2025 Dr. Luiz Painter DO Attending Provider Active S tart: March 09, 2025 Team Status: Active Member Role/Relationship Status Dates Dr. Riaz Garrison MD Primary Care Provider Active Start: March 09, 2025 Dr. Mdadie Hendrickson DO Emergency Provider Active S tart: March 09, 2025 Dr. Hansel Gillis MD Admit Provider Active St art: March 09, 2025 Dr. Hansel Gillis MD Other Provider Active St art: March 09, 2025 Dr. Tracey Orantes MD Attending Provider Active Start: March 09, 2025 Dr. Tracey Orantes MD Other Provider Active St art: March 09, 2025 Dr. Romana Dudley MD Other Provider Active Star t: March 09, 2025 Dr. Natanael Christensen MD Other Provider Active Start: March 09, 2025 Dr. Fernandez Santana MD Other Provider Active Sta rt: March 09, 2025 Team Status: Inactive Member Role/Relationship Status Dates Dr. Riaz Garrison MD Primary Care Provider Active Start: March 12, 2025 End: March 12, 2025 Dr. Riaz Garrison MD Referring Provider Active Start: March 12, 2025 End: March 12, 2025 Vipul CARRERA PA Attending Provider Active St art: March 12, 2025 End: March 12, 2025 Team Status: Inactive Member Role/Relationship Status Dates Dr. iRaz Garrison MD Primary Care Provider Active Start: March 15, 2025 End: March 15, 2025 Dr. Riaz Garrison MD Referring Provider Active Start: March 15, 2025 End: March 15, 2025 FELICIA CookC Attending Provider Active Start: March 15, 2025 End: March 15, 2025 Team Status: Active Member Role/Relationship Status Dates Dr. Riaz Garrison MD Primary Care Provider Active Start: March 18, 2025 Dr. Riaz Garrison MD Attending Provider Active Start: March 18, 2025 Team Status: Inactive Member Role/Relationship Status Dates Dr. Riaz Garrison MD Primary Care Provider Active Start: March 19, 2025 End: March 19, 2025 Dr. Riaz Garrison MD Referring Provider Active Start: March 19, 2025 End: March 19, 2025 Laura Farias PA, PA Attending Provider Active Start: March 19, 2025 End: March 19, 2025 Team Status: Inactive Member Role/Relationship Status Dates Dr. Riaz Garrison MD Primary Care Provider Active Start: March 23, 2025 End: March 23, 2025 Dr. Riaz Garrison MD Referring Provider Active Start: March 23, 2025 End: March 23, 2025 Denise Cruz NP, ELECTROCARDIOGRAPH REPAIRER-C Attending Provider Active Start: March 23, 2025 End: March 23, 2025 Team Status: Inactive Member Role/Relationship Status Dates Dr. Riaz Garrison MD Primary Care Provider Active Start: April 05, 2025 End: April 05, 2025 Dr. Riaz Garrison MD Referring Provider Active Start: April 05, 2025 End: April 05, 2025 FELICIA CookC Attending Provider Active Start: April 05, 2025 End: April 05, 2025 Team Status: Inactive Member Role/Relationship Status Dates Dr. Riaz Garrison MD Primary Care Provider Active Start: April 05, 2025 End: April 05, 2025 Bijal Deluna NP-C Attending Provider Active Start: April 05, 2025 End: April 05, 2025 Bijal Deluna NP-C Referring Provider Active Start: April 05, 2025 End: April 05, 2025 Team Status: Inactive Member Role/Relationship Status Dates Dr. Riaz Garrison MD Primary Care Provider Active Start: April 27, 2025 End: April 27, 2025 Dr. Riaz Garrison MD Attending Provider Active Start: April 27, 2025 End: April 27, 2025 Dr. Riaz Garrison MD Referring Provider Active Start: April 27, 2025 End: April 27, 2025 Team Status: Inactive Member Role/Relationship Status Dates Dr. Riaz Garrison MD Referring Provider Active Start: May 03, 2025 End: May 03, 2025 Nicolas Alarcon MD Attending Provider Active St art: May 03, 2025 End: May 03, 2025 Team Status: Inactive Member Role/Relationship Status Dates Dr. Nabil Pierre MD Attending Provider Active S tart: May 03, 2025 End: May 03, 2025 Team Status: Inactive Member Role/Relationship Status Dates Dr. Riaz Garrison MD Referring Provider Active Start: May 19, 2025 End: May 19, 2025 Kisha Silveira NP-C Attending Provider Active Start: May 19, 2025 End: May 19, 2025 Team Status: Inactive Member Role/Relationship Status Dates Kisha Silveira NP-C Attending Provider Active Start: May 19, 2025 End: May 19, 2025 Kisha Silveira NP-C Referring Provider Active Start: May 19, 2025 End: May 19, 2025 Team Status: Inactive Member Role/Relationship Status Dates Kisha Silveira NP-C Attending Provider Active Start: May 28, 2025 End: May 28, 2025 Kisha Silveira NP-C Referring Provider Active Start: May 28, 2025 End: May 28, 2025 Dr. Riaz Garrison MD Primary Care Provider Active Start: May 28, 2025 End: May 28, 2025 Dr. Jonny Abebe MD Other Provider Active Start: May 28, 2025 End: May 28, 2025 Team Status: Inactive Member Role/Relationship Status Dates Dr. Riaz Garrison MD Primary Care Provider Active Start: May 31, 2025 End: May 31, 2025 Dr. Riaz Garrison MD Referring Provider Active Start: May 31, 2025 End: May 31, 2025 Mike Stearns ELECTROCARDIOGRAPH REPAIRER, ELECTROCARDIOGRAPH REPAIRER-C Attending Provider Active S tart: May 31, 2025 End: May 31, 2025 Goals (unrecognized section and content) Goals may be documented in a n alternate sectionGoals may be documented in an alternate sectionGoals may be documented in an alternate sectionGoals may be documented in an alternate sectionGoals may be documented in an alternate sectionGoals may be documented in an alternate sectionGoals may be documented in an alternate sectionGoals may be documented in an alternate sectionGoals may be documented in an alternate sectionGoals may be documented in an alternate sectionGoals may be documented in an alternate sectionGoals may be documented in an alternate sectionGoals may be documented in an alternate sectionGoals may be documented in an alternate sectionGoals may be documented in an alternate sectionGoals may be documented in an alternate sectionGoals may be documented in an alternate sectionGoals may be documented in an alternate sectionGoals may be documented in an alternate sectionGoals may be documented in an alternate sectionGoals may be documented in an alternate sectionGoals may be documented in an alternate sectionGoals may be documented in an alternate sectionGoals may be documented in an alternate sectionGoals may be documented in an alternate sectionGoals may be documented in an alternate section (unrecognized sect ion and content) No Status Records FoundNo Status Records FoundNo Status Records FoundNo Status Records Found INFORMATION SOURCE (unrecogn ized section and content) DATE CREATED AUTHOR 09/11/2023 [facility] DATE CREATED AUTHOR AUTHOR'S ORGANIZ ATION 03/09/2024 [facility] DATE CREATED AUTHOR AUTHOR'S ORGANIZ ATION 05/06/2025 [facility] DATE CREATED AUTHOR AUTHOR'S ORGANIZ ATION 06/06/2025 [facility] FOR RECORDS PERTAINING TO PATIENTS WHO ARE [...] BE BASED ON THE PRIMARY CLINICAL RECORDS. [facility] [employer] [facility]. provides no warranty or guarantee of the accuracy or completeness of information in this document.
[2025-06-14 01:42] LABS: Hematocrit 42.2 % (40-54); Hemoglobin 13.9 g/dL (13.0-16.5); Immature Granulocytes Count 0.080 X10^3/uL (0.0-0.0); Mean Corp Hgb Conc 32.9 g/dL (32-36); Mean Corpuscular Volume 94.6 fL (80-94); Mean Platelet Vol. 9.6 fl (6.2-12.0); NRBC Flagged by Analyzer 0 % (0-5); Platelet Count 316 K/mm3 (150-450); RBC Distribution Width CV 13.4 % (11.6-14.6); RBC Distribution Width SD 46.2 fl (35.1-43.9); Red Blood Count 4.46 M/mm3 (4.6-6.2); White Blood Count 8.2 K/mm3 (4.4-11.0)
--- NOTE | 2025-06-14 01:50 | RAD_ITS ---
PROCEDURE: CHEST PA AND LATERAL 06/14/2025 REASON FOR EXAM: CHEST PAIN TECHNIQUE: Procedure Code: RADCXR Modality: DX Procedure: CHEST PA AND LATERAL COMPARISON: 03/04/2025. FINDINGS: Unremarkable right clavicular metallic plate and screws. Unchanged emphysema. Unchanged bilateral basilar atelectatic pulmonary changes. There is no demonstrated pleural abnormality. Enlarged cardiac silhouette. Normal mediastinum and frank. Normal visualized pulmonary arteries. Atheromatous plaques of the visualized aortic arch and descending thoracic aorta. Diffuse spondylosis of the visualized thoracic spine. Normal visualized ribs, clavicles. Degenerative joint disease. There is no demonstrated abnormality of the visualized soft tissue structures of the upper abdomen. RAD/Chest PA and Lateral IMPRESSION: Unremarkable right clavicular metallic plate and screws. Unchanged emphysema. Unchanged bilateral basilar atelectatic pulmonary changes. Enlarged cardiac silhouette. Reading [facility]
[2025-06-14 02:13] LABS: Anion Gap 13 (5-15); BUN 49 mg/dL (4-19); BUN/Creat Ratio 19.2 RATIO (10-20); Calcium,Total 9.3 mg/dL (7.6-11.0); Carbon Dioxide 28.8 mmol/L (21.0-32.0); Chloride 97 mmol/L (98-108); Estimated Creatinine Clearance 22.22 ml/min (50-250); Glucose 154 mg/dL (70-99); Magnesium 2.4 mg/dL (1.5-2.2); Potassium 4.3 mmol/L (3.3-5.1); Pro- Brain NATRIURETIC PEPTIDE 2920 pg/mL (<=1800)
[2025-06-14 02:26] LABS: Troponin T High Sensitivity 50 ng/L (<=22)
[2025-06-14 04:08] LABS: Troponin T High Sens 2 HR 53 ng/L (<=22)
--- NOTE | 2025-06-14 04:09 | EDS_ITS ---
HPI History of Present Illness Chief Complaint: Chest Pain Informant: patient and spouse/S.O. Narrative Narrative: Patient is a 89-year-old male with past medical hypertension hyperlipidemia insulin-dependent type 2 diabetes and known CAD as well as chronic atrial fibrillation on Eliquis. Patient reports that he gets chest discomfort almost weekly. He states he has been admitted in the past secondary to this as well. He reports he followed up with his compliance investigator roughly 2 weeks ago and was informed that medical management is his most optimal treatment strategy. He patient states that this evening/morning he noticed some pain in the mid to left-sided chest and therefore took his home nitroglycerin. He states the pain improved but he was still concerned that this was a cardiac event and therefore EMS was called and he was brought in for evaluation. [facility] Medical History Trigger thumb, left thumb Left wrist pain Hypoxia Tremor Pneumonia Peripheral edema Chronic systolic (congestive) heart failure Unsteady gait when walking Muscle twitching Neuropathy Leukocytosis Obesity (BMI 30.0-34.9) Diastolic CHF, acute on chronic Atrial fibrillation/flutter Right carotid bruit Stable angina GERD (gastroesophageal reflux disease) Myocardial infarct Complicated urinary tract infection Urinary tract infection Colonic mass Controlled type 2 diabetes mellitus Acute respiratory insufficiency Chronic kidney disease Chronic anemia Bilateral edema of lower extremity Fatigue Pleural effusion (HFpEF) heart failure with preserved ejection fraction Colon polyp Lightheadedness Chronic constipation Obstructive sleep apnea Gastroesophageal reflux disease Allergic rhinitis Hyperlipidemia Urinary retention Wears hearing aid Wears dentures Wears glasses Cancer History of steroid therapy Arthritis Kidney stone Easy bruising Back pain Injury of back History of hiatal hernia Former smoker BiPAP (biphasic positive airway pressure) dependence Hoarseness Chronic cough Leg cramps History of pain when walking History of stress test History of heart attack Recurrent urinary tract infection ALMEIDA (dyspnea on exertion) Chest pain Right leg swelling Patellar bursitis of right knee Asthma-COPD overlap syndrome Abdominal aortic aneurysm (AAA) Peripheral vascular disease of extremity with claudication Rectus sheath hematoma Pre-syncope Essential (primary) hypertension Restless legs syndrome Daytime hypersomnia Somatic dysfunction of pelvic region DDD (degenerative disc disease), lumbar Overweight Seasonal allergies Carotid bruit Atherosclerotic heart disease of [place] coronary artery without angina pectoris Home Medications ?Medication ?Instructions ?Recorded ?Last Taken ?Type handicap placcard #1 ea 09/28/19 Unknown Rx coenzyme Q10 100 mg capsule (Co 100 mg PO DAILY supple ment 05/03/20 01/29/25 History Q-10) cholecalciferol (vitamin D3) 100 100 mcg PO DAILY supp lement 11/03/20 01/29/25 History mcg (4,000 unit) tablet spacer #1 ea 01/12/21 Unknown Rx lancets #180 ea 07/18/23 Unknown Rx tamsulosin 0.4 mg capsule 0.4 mg PO DAILY prostate 01/22/25 History finasteride 5 mg tablet 5 mg PO DAILY prostate 06/2801/28/25 History handicap placard #1 ea 10/12/24 Unknown Rx apixaban 2.5 mg tablet (Eliquis) 2.5 mg PO BID atrial fibrillation 12/14/24 02/19/25 Rx #180 tabs ipratropium bromide 21 mcg (0.03 2 spray intranasal BI D PRN allergy 12/14/24 Unknown History %) nasal spray symptoms blood sugar diagnostic (OneTouch #180 ea 12/21/24 Unkn own Rx Ultra Test strips) albuterol sulfate 90 mcg/actuation 2 inh inhalation Q4 H PRN shortness 01/04/25 01/28/25 Rx aerosol inhaler (Ventolin HFA) of breath or wheezing # 18 grams ranolazine 500 mg tablet,extended 500 mg PO BID chest pain #180 tabs 01/26/25 02/19/25 Rx release,12 hr ipratropium 0.5 mg-albuterol 3 mg 3 ml inhalation TID SOB &/OR 01/29/25 01/28/25 History (2.5 mg base)/3 mL nebulization 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,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,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 #1 ea 02/01/25 Unknown Rx (FreeStyle [place] 3 [place]) nitroglycerin 0.4 mg sublingual 0.4 mg sublingual Q5-1 5M PRN chest 02/15/25 Unknown Rx tablet (Nitrostat) pain #25 tabs 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 sensor (FreeStyle #3 ea 03/12/25 Unknown Rx Dwight 3 Plus Sensor device) lactulose 10 gram/15 mL oral 20 g PO DAILY PRN constip ation 03/19/25 Unknown History solution budesonide-formoterol HFA 160 2 puff inhalation BID co pd #3 ea 03/23/25 Unknown Rx mcg-4.5 mcg/actuation aerosol inhaler (Symbicort) pen needle, diabetic 31 gauge x #100 ea 03/24/25 Unkno wn Rx / (Unifine Pentips) ferrous sulfate 325 mg (65 mg 325 mg PO DAILY low iron #30 tabs 03/29/25 Unknown Rx iron) tablet (FeroSul) atorvastatin 40 mg tablet 40 mg PO QODAY cholesterol 0 04/05/25 Unknown History mecobalamin (vitamin B12) 1,000 1,000 mcg PO QDAY 03/09 Unknown History mcg chewable tablet (B12 Active) ropinirole 1 mg tablet See Rx Instructions PO QHS P RN 04/05/25 Unknown History restless leg potassium chloride 20 mEq 20 meq PO BID supplement #60 tabs 04/06/25 Unknown Rx tablet,extended release(part/cryst) carvedilol 6.25 mg tablet 6.25 mg PO BID #180 tabs 12/29 Unknown Rx furosemide 40 mg tablet 40 mg PO .COMPLEX #270 tabs 04/27/25 Unknown Rx gabapentin 100 mg capsule 100 mg PO QDAY 04/27/25 Unkn own History montelukast 10 mg tablet 10 mg PO QHS Respiratory #90 tabs 05/21/25 Unknown Rx hydralazine 100 mg tablet 100 mg PO BID hypertension # 180 05/24/25 Unknown Rx tabs empagliflozin 10 mg tablet 10 mg PO DAILY #30 tabs Unknown Rx (Jardiance) insulin aspart U-100 100 unit/mL 10 unit subcut TID [place] N diabetes 05/31/25 Unknown History subcutaneous cartridge (Novolog PenFill U-100 Insulin aspart) insulin glargine 100 unit/mL (3 20 unit subcut DAILY d iabetes 05/31/25 Unknown History mL) subcutaneous pen (Lantus Solostar U-100 Insulin) magnesium oxide 500 mg capsule 500 mg PO QDAY 05/31/25 Unknown History pantoprazole 40 mg tablet,delayed 40 mg PO DAILY reflu x #90 tabs 06/11/25 Unknown Rx release Allergy/AdvReac Type Severity Reaction Status Date / Time cilostazol (From Pletal) Allergy Unknown Verified 06/14/25 00:55 felodipine Allergy Hives Verified 06/14/25 00:55 levofloxacin Allergy Hives Verified 06/14/25 00:55 Sulfa (Sulfonamide Allergy Unknown Verified 06/14/25 00:55 Antibiotics) isosorbide AdvReac Intermediate low BP Verified 06/14/25 00:55 Family History Father Diabetes Cancer Prostate cancer Mother Dementia Brother Parkinsons Brother Cancer H/O vascular surgery Surgical History History of appendectomy History of surgical procedure H/O vascular surgery History of surgical procedure History of transurethral resection of prostate History of endarterectomy (07/2018) History of left heart catheterization (03/2014) History of coronary artery stent placement (02/17/08) History of vascular surgery (08/2018) History of hernia repair H/O aortic aneurysm repair (11/1998) Social History household members: spouse 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 status: 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 Smoking Status: Former smoker quit date: 08/07/08 pack-years: 2 Tobacco: How many years used: 52 Electronic Cigarette Use: not used how long ago did patient quit smokin years ago alcohol intake: current alcohol intake frequency: holidays/special occasions only details: hx of alcohol abuse substance use type: does not use caffeine: No what type of physical activity do you participate in: other details: Nustep frequency: 5-6 times per week duration: 15-30 minutes/day seatbelt use: always do you feel safe at home: Yes ROS ROS ED Constitutional Constitutional ED: Denies chills or fever(s) Eyes Eyes: Denies blurry vision or change in vision ENT ENT ED: Denies sore throat Cardiovascular Cardiovascular: Reports chest pain and palpitations; Denies racing heartbeat Respiratory/Chest Respiratory/Chest: Denies cough or dyspnea Gastrointestinal Gastrointestinal: Denies abdominal pain, diarrhea, nausea or vomiting Genitourinary Genitourinary ED: Denies dysuria Musculoskeletal Musculoskeletal: Denies myalgias Integumentary Denies rash Neurologic Neurologic: Denies headache(s) Hematologic/Lymphatic Hematologic/Lymphatic: Reports easy bleeding and easy bruising EXAM Physical Exam Const Vital Signs: 06/14/25 00:45 06/14/25 01:25 06/14/25 01:44 Temperature 98.3 F Temperature Source Oral Pulse Rate 63 59 L 61 Respiratory Rate 18 20 H Blood Pressure 171/89 H 160/76 H 160/76 H Blood Pressure Mean 116 104 Pulse Ox 98 98 Oxygen Delivery Method Room Air 06/14/25 02:44 06/14/25 03:00 06/14/25 04:00 Temperature Temperature Source Pulse Rate 65 62 67 Respiratory Rate 19 H 21 H 18 Blood Pressure 141/76 H 157/69 H 181/83 H Blood Pressure Mean 97 98 115 Pulse Ox 98 97 94 Oxygen Delivery Method Room Air Room Air Room Air 06/14/25 04:27 Temperature 97.8 F Temperature Source Pulse Rate 61 Respiratory Rate 19 H Blood Pressure 163/68 H Blood Pressure Mean 99 Pulse Ox 98 Oxygen Delivery Method Positive well nourished and well developed General Appearance ED: well developed; Negative for pallor HEENT Reports dry mucous membranes HEENT Narrative: Normocephalic atraumatic No tongue or lip swelling no oral lesions no airway edema or compromise No secondary findings in the posterior pharynx to suggest infection Mouth ED: Yes dry mucous membranes Mouth: dry mucous membranes Eyes PERRL and EOMs intact bilaterally General Eye ED: Negative for pale conjunctiva Neck supple and no JVD Chest Wall Chest Narrative: No bony deformity or subcutaneous emphysema noted No reproducible pain with palpation Resp normal respiratory effort Resp Narrative: Breath sounds are diminished throughout with faint expiratory wheeze and rhonchi in the bilateral lower lobes but no nasal flaring retractions tachypnea or accessory muscle use Cardio regular rate Rate: other Other Details: Irregularly irregular rhythm with regular rate consistent with history of chronic atrial fibrillation GI normal to inspection, nondistended, normoactive bowel sounds, non-tender, non- distended and no masses GI Narrative: No voluntary guarding or rigidity or pulsatile mass Auscultation: normoactive bowel sounds Palpation: soft Extremity Extremity Narrative: Trace pitting edema to the bilateral lower extremities that is equal and symmetric Negative Homans' sign bilaterally Neuro oriented x3 and CN's II-XII intact bilaterally Sensorium / Orientation: alert Psych mental status grossly normal Skin no rashes or lesions noted Skin Narrative: Capillary refills less than 3 seconds General Skin Exam: Negative for jaundice or pallor MDM MDM MDM Narrative Medical decision making narrative: Patient arrived to the ER hypertensive but otherwise with stable vitals. He reported midsternal to left-sided chest discomfort that started spontaneously but was not associated with nausea vomiting diaphoresis or shortness of breath. However he does state that his symptoms improved with home nitro. With his known history of CAD there is high likelihood that this was anginal in nature. In order to ensure that symptoms were not related to acute on chronic kidney damage versus acute blood loss anemia versus CHF or pneumonia I did elect to perform basic laboratory studies as well as a chest x-ray. Patient's H&H is stable his kidney function is elevated at 2.5 but chart review reveals this is his baseline creatinine. Chest x-ray revealed no sign of acute infiltrate or volume overload and this correlates with his proBNP which is elevated consistent with heart failure but down from the previous value. His troponins were 50 and 53 but chart review reveals that previous levels are around this value with the most recent workup showing troponins in the 60s. Patient was given 1 more nitro upon arrival as he remained hypertensive and reported his pain had decreased down to a value of a 2. With the third nitro patient reported complete resolution of his chest discomfort and his vital signs remained stable. His previous compliance investigator office note was reviewed and as there recommendation is for medical management I do not feel that he would benefit from admission to the hospital as his kidney function is at baseline his troponins are at baseline his x-ray reveals no sign of volume overload and he has had resolution of his chest discomfort with the prescribed medication as directed by his compliance investigator. This plan of care was discussed with patient and who are both agreeable to it as his pain has completely resolved and he is otherwise safe for discharge History & Record Review Discussion w/independent historian: Patient and Significant other Lab Data Attestation: I reviewed the patient's lab results. Labs: Laboratory Results - last 24 hr 06/14/25 06/14/25 01:32 03:36 WBC 8.2 RBC 4.46 L Hgb 13.9 Hct 42.2 MCV 94.6 H MCH 31.2 MCHC 32.9 RDW Std Deviation 46.2 H RDW Coeff of Justin 13.4 Plt Count 316 MPV 9.6 Immature Gran % (Auto) 1.000 H Neut % (Auto) 71.3 H Lymph % (Auto) 16.3 L [place] % (Auto) 10.2 H Eos % (Auto) 0.6 Baso % (Auto) 0.6 Absolute Neuts (auto) 5.8 Absolute Lymphs (auto) 1.33 Nucleated RBC % 0 Sodium 138 Potassium 4.3 Chloride 97 L Carbon Dioxide 28.8 Anion Gap 13 BUN 49 H Creatinine 2.55 H Estim Creat Clear Calc 22.22 L Est GFR (MDRD) Non-Af 24 L BUN/Creatinine Ratio 19.2 Glucose 154 H Calcium 9.3 Magnesium 2.4 H Troponin T High Sens 50 H D Troponin T Hi Sens 2 Hr 53 H NT pro BNP II 2920 H Radiography Diagnostic Testing: Clinical Impression(s) from Imaging Studies Chest X-Ray 06/14/25 01:50 IMPRESSION: Unremarkable right clavicular metallic plate and screws. Unchanged emphysema. Unchanged bilateral basilar atelectatic pulmonary changes. Enlarged cardiac silhouette. 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, Congestive heart failure, Hyperlipidemia, Hypertension, Stable angina, Diabetes mellitus type 2, insulin dependent Instructions: ED Angina, Stable Prescriptions: No Action (DME) handicap placcard Qty: 1 0RF Rx Instructions: Lifetime: debility coenzyme Q10 [Co Q-10] 100 mg capsule 100 mg PO DAILY cholecalciferol (vitamin D3) 100 mcg (4,000 unit) tablet 100 mcg PO DAILY (DME) spacer See Rx Instructions .ROUTE .MEDSUPPLY Qty: 1 0RF Rx Instructions: As directed (DME) lancets [facility] To [facility] See Rx Instructions .Route Qty: 180 1RF Rx Instructions: twice daily tamsulosin 0.4 mg capsule 0.4 mg PO DAILY Patient Comments: PT TAKES SOMETIMES furosemide 40 mg tablet 40 mg PO .COMPLEX Qty: 270 0RF Rx Instructions: 40 mg orally ; 2 tablets every morning, 1 tablet at 4:00 daily; magnesium oxide 500 mg capsule 500 mg PO QDAY insulin aspart U-100 [Novolog PenFill U-100 Insulin] 100 unit/mL cartridge 10 unit subcut TID PRN (Reason: diabetes) Rx Instructions: hold if glucose is under 130 Jardiance 10 mg tablet 10 mg PO DAILY Qty: 30 11RF (DME) FreeStyle [place] 3 [place] Misc See Rx Instructions .Route Qty: 1 0RF Rx Instructions: As directed (DME) FreeStyle [place] 3 Plus Sensor Device See Rx Instructions .Route Qty: 3 2RF Rx Instructions: As directed budesonide-formoterol [Symbicort] 160-4.5 mcg/actuation HFA aerosol inhaler 2 puff inhalation BID Qty: 3 3RF Rx Instructions: administer with spacer, rinse mouth after each use lactulose 10 gram/15 mL solution 20 g PO DAILY PRN (Reason: constipation) ropinirole 1 mg tablet See Rx Instructions PO QHS PRN (Reason: restless leg) Rx Instructions: 2-3 orally at bedtime PRN; administer 2-3 tablets, 1-3 hours before bedtime mecobalamin (vitamin B12) [B12 Active] 1,000 mcg tablet,chewable 1,000 mcg PO QDAY atorvastatin 40 mg tablet 40 mg PO QODAY Patient Comments: PT TAKES IN EVENING, Saturday, Saturday and Saturday Rx Instructions: at bedtime gabapentin 100 mg capsule 100 mg PO QDAY Rx Instructions: SPECIAL INSTRUCTIONS CAN USE UP TO 300 PRN finasteride 5 mg tablet 5 mg PO DAILY Patient Comments: PT TAKES AT NIGHT ipratropium bromide 21 mcg (0.03 %) spray,non-aerosol 2 spray intranasal BID PRN (Reason: allergy symptoms) Rx Instructions: administer into each nostril ipratropium-albuterol 0.5 mg-3 mg(2.5 mg base)/3 mL solution for nebulization 3 ml inhalation TID Rx Instructions: 3 mL inhaled; insulin glargine [Lantus Solostar U-100 Insulin] 100 unit/mL (3 mL) insulin pen 20 unit subcut DAILY (DME) handicap placard See Rx Instructions .ROUTE .MEDSUPPLY Qty: 1 0RF Rx Instructions: Length of time: 5 years Diganosis: Impaired physical mobility Eliquis 2.5 mg tablet 2.5 mg PO BID Qty: 180 4RF (DME) OneTouch Ultra Test Strip See Rx Instructions .Route Qty: 180 1RF Rx Instructions: Check three to four times a day. albuterol sulfate [Ventolin HFA] 90 mcg/actuation HFA aerosol inhaler 2 inh INHALATION Q4H PRN (Reason: shortness of breath or wheezing) Qty: 18 6RF ranolazine 500 mg tablet extended release 12 hr 500 mg PO BID Qty: 180 3RF nitroglycerin [Nitrostat] 0.4 mg tablet, sublingual 0.4 mg SUBLINGUAL Q5-15M PRN (Reason: chest pain) Qty: 25 2RF (DME) pen needle, diabetic [Unifine Pentips] 31 gauge x 1/4 needle See Rx Instructions .ROUTE .COMPLEX Qty: 100 1RF Dose Instruction: use 3 TO 4 needles daily Rx Instructions: use 3 TO 4 needles daily ferrous sulfate [FeroSul] 325 mg (65 mg iron) tablet 325 mg PO DAILY Qty: 30 2RF Rx Instructions: 1 tablet daily potassium chloride 20 mEq tablet,ER particles/crystals 20 meq PO BID Qty: 60 2RF carvedilol 6.25 mg tablet 6.25 mg PO BID Qty: 180 3RF Rx Instructions: must administer with a meal/food montelukast 10 mg tablet 10 mg PO QHS Qty: 90 3RF hydralazine 100 mg tablet 100 mg PO BID Qty: 180 3RF pantoprazole 40 mg tablet,delayed release (DR/EC) 40 mg PO DAILY Qty: 90 3RF Primary Care Provider: Carolynn Whitman Referrals: Carolynn Whitman MD [Primary Care Provider] - Activity Restrictions/Additional Instructions: Your workup today revealed no signs of active heart damage or volume overload. Based on your chronic heart condition you may experience recurrent pain especially if your blood pressure elevates. If pain develops or returns please take up to 3 nitro roughly 5 minutes apart and if you are pain resolves you are safe to stay home. If it persists or you have any further concerns then return to the ER for repeat evaluation. Please continue all of your other home medication as directed by your doctor Print Language: French Disposition Disposition: Home, Self Care Discharge Date/Time: 06/14/25 04:28
== END 2025-06-14 04:28 | disposition home or self-care (01) ==
PROVIDERS: Emergency Provider Emergency Medicine; PCP Internal Medicine; Visit Provider Emergency Medicine
DX: R07.9 Chest pain, unspecified (principal); I50.42 Chronic combined systolic (congestive) and diastolic (congestive) heart failure; I13.0 Hypertensive heart and chronic kidney disease with heart failure and stage 1 through stage 4 chronic kidney disease, or unspecified chronic kidney disease; J43.9 Emphysema, unspecified; I48.20 Chronic atrial fibrillation, unspecified; Z79.4 Long term (current) use of insulin; E11.22 Type 2 diabetes mellitus with diabetic chronic kidney disease; N18.9 Chronic kidney disease, unspecified; I25.118 Atherosclerotic heart disease of native coronary artery with other forms of angina pectoris; E78.5 Hyperlipidemia, unspecified; Z95.5 Presence of coronary angioplasty implant and graft; Z79.01 Long term (current) use of anticoagulants; Z79.84 Long term (current) use of oral hypoglycemic drugs; Z79.899 Other long term (current) drug therapy; Z87.891 Personal history of nicotine dependence
CPT/HCPCS: 71046; 80048; 83735; 83880; 84484; 85025; 93005; 99285; A4216

== ENCOUNTER → 2025-07-08 | Outpatient (CLI) | payer MEDICARE, SELFPAY ==
--- NOTE | 2025-07-08 17:15 | CT_ITS ---
PROCEDURE: CHEST WITHOUT CONTRAST 07/08/2025 REASON FOR EXAM: PNEUMONIA TECHNIQUE: Chest CT without contrast. Coronal and Sagittal reconstruction series were provided. One or more dose reduction techniques were used (e.g., Automated exposure control, adjustment of the mA and/or kV according to patient size, use of iterative reconstruction technique RADIATION DOSE SUMMARY: CTDlvol: 12.26 mGy DLP: 462.55 mGycm COMPARISON: 03/05/2025 FINDINGS: Lung windows again show underlying emphysema with chronic interstitial fibrotic scarring in both lung lynn and nonspecific pleural thickening. Previously noted tree-in-bud opacifications have significantly decreased since the previous study particularly in the lower lobes. There is still some evidence of small airways inflammation but not to the extent seen on the previous study. There is no organized infiltrate or effusion. Soft tissue windows show a normal-appearing thyroid gland. No suspicious axillary, mediastinal or perihilar adenopathy. The thoracic aorta shows peripheral calcifications without aneurysm. There are coronary artery calcifications. Limited cuts through the upper abdomen show a small hiatal hernia with evidence of GE reflux, there are simple renal cysts. Bony structures show degenerative change CT/Chest without Contrast IMPRESSION: Coronary artery calcification (CAC) is is present Underlying emphysema with stable nonspecific pleural thickening in both ranjit th oraces and fibrotic scarring. Near-complete resolution of the previously noted airspace opacifications in both lung lynn, particularly the lower lung lynn since the previous study, there is a minimal amount of small airways inflammation in the lower lung lynn. No suspicious noncalcified mass or nodule No suspicious adenopathy Degenerative bony changes Reading Location: [place] [id number]
== END | disposition home or self-care (01) ==
LOC: CT 17:14
PROVIDERS: PCP Internal Medicine; Referring Provider Nurse Practitioner Family; Visit Provider Nurse Practitioner Family
DX: J13 Pneumonia due to Streptococcus pneumoniae (principal); J44.9 Chronic obstructive pulmonary disease, unspecified
CPT/HCPCS: 71250

== ENCOUNTER 2025-07-15 03:54 | Inpatient (IN) | payer MEDICARE, SELFPAY ==
[2025-07-15] VITALS (9 sets, daily range): BP systolic 105–150; BP diastolic 55–93; PULSE 57–83; RESP 16–18; TEMP 36.2–37.1; O2SAT 93–95; BMI 32.8; BMI 30.6
--- NOTE | 2025-07-15 04:33 | EX.ED.DYSGE1 ---
HPI History of Present Illness Chief Complaint: General Illness Narrative Narrative: Chief complaint and HPI: 89-year-old male with multiple comorbidities including CHF, COPD, CKD, atrial fibrillation on Eliquis, HLD, DM2, HTN presents for evaluation of generalized weakness. Patient states shortly after eating supper had an episode of emesis. States he went to use the bathroom this evening and had generalized weakness in which she could not get off the toilet. He denies any fever, chills, chest pain, abdominal pain, diarrhea, dysuria. States he has shortness of breath and chronic cough from his COPD. States he has chronic back pain which he sees pain management. Review of systems: See HPI Medications: As listed on the chart Allergies: As listed on the chart PFSH: Per chart Vital signs: As listed on the chart. Reviewed. Physical exam: Gen: A&O x3, NAD Head: Normocephalic, atraumatic Eyes: No sclera icterus, conjunctiva clear ENT: Mildly dry mucous membranes Neck: Trachea midline CV: Irregular irregular rhythm without tachycardia, no murmurs, no peripheral edema Resp: Lungs CTA BL but diminished in the bilateral bases, + cough GI: Abd soft, non-distended, non-tender, no r/r/g Musc: Moves all extremities, no deformity Skin: Warm, dry Neuro: Alert, oriented, grossly intact, sensation intact Psych: Cooperative, appropriate mood and affect [facility] Medical History Pneumonia Trigger thumb, left thumb Left wrist pain Hypoxia Tremor Peripheral edema Chronic systolic (congestive) heart failure Unsteady gait when walking Muscle twitching Neuropathy Leukocytosis Obesity (BMI 30.0-34.9) Diastolic CHF, acute on chronic Atrial fibrillation/flutter Right carotid bruit Stable angina GERD (gastroesophageal reflux disease) Myocardial infarct Complicated urinary tract infection Urinary tract infection Colonic mass Controlled type 2 diabetes mellitus Acute respiratory insufficiency Chronic kidney disease Chronic anemia Bilateral edema of lower extremity Fatigue Pleural effusion (HFpEF) heart failure with preserved ejection fraction Colon polyp Lightheadedness Chronic constipation Obstructive sleep apnea Gastroesophageal reflux disease Allergic rhinitis Hyperlipidemia Urinary retention Wears hearing aid Wears dentures Wears glasses Cancer History of steroid therapy Arthritis Kidney stone Easy bruising Back pain Injury of back History of hiatal hernia Former smoker BiPAP (biphasic positive airway pressure) dependence Hoarseness Chronic cough Leg cramps History of pain when walking History of stress test History of heart attack Recurrent urinary tract infection ALMEIDA (dyspnea on exertion) Chest pain Right leg swelling Patellar bursitis of right knee Asthma-COPD overlap syndrome Abdominal aortic aneurysm (AAA) Peripheral vascular disease of extremity with claudication Rectus sheath hematoma Pre-syncope Essential (primary) hypertension Restless legs syndrome Daytime hypersomnia Somatic dysfunction of pelvic region DDD (degenerative disc disease), lumbar Overweight Seasonal allergies Carotid bruit Atherosclerotic heart disease of [place] coronary artery without angina pectoris Home Medications ?Medication ?Instructions ?Recorded ?Last Taken ?Type handicap placcard #1 ea 09/28/19 Unknown Rx coenzyme Q10 100 mg capsule (Co 100 mg PO DAILY supplement 05/03/20 01/29/25 History Q-10) cholecalciferol (vitamin D3) 100 100 mcg PO DAILY supplement 11/03/20 01/29/25 History mcg (4,000 unit) tablet spacer #1 ea 01/12/21 Unknown Rx lancets #180 ea 07/18/23 Unknown Rx tamsulosin 0.4 mg capsule 0.4 mg PO DAILY prostate 06/01/24 01/22/25 History finasteride 5 mg tablet 5 mg PO DAILY prostate 06/28/24 01/28/25 History handicap placard #1 ea 10/12/24 Unknown Rx apixaban 2.5 mg tablet (Eliquis) 2.5 mg PO BID atrial fibrillation 12/14/24 02/19/25 Rx #180 tabs ipratropium bromide 21 mcg (0.03 2 spray intranasal BID PRN allergy 12/14/24 Unknown History %) nasal spray symptoms blood sugar diagnostic (OneTouch #180 ea 12/21/24 Unknown Rx Ultra Test strips) albuterol sulfate 90 mcg/actuation 2 inh inhalation Q4H PRN shortness 01/04/25 01/28/25 Rx aerosol inhaler (Ventolin HFA) of breath or wheezing #18 grams ranolazine 500 mg tablet,extended 500 mg PO BID chest pain #180 tabs 01/26/25 02/19/25 Rx release,12 hr ipratropium 0.5 mg-albuterol 3 mg 3 ml inhalation TID SOB &/OR 01/29/25 01/28/25 History (2.5 mg base)/3 mL nebulization 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,chemical laboratory scientist,cont #1 ea 02/01/25 Unknown Rx (FreeStyle [place] 3 [place]) nitroglycerin 0.4 mg sublingual 0.4 mg sublingual Q5-15M PRN chest 02/15/25 Unknown Rx tablet (Nitrostat) pain #25 tabs 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 sensor (FreeStyle #3 ea 03/12/25 Unknown Rx Dwight 3 Plus Sensor device) lactulose 10 gram/15 mL oral 20 g PO DAILY PRN constipation 03/19/25 Unknown History solution budesonide-formoterol HFA 160 2 puff inhalation BID copd #3 ea 03/23/25 Unknown Rx mcg-4.5 mcg/actuation aerosol inhaler (Symbicort) mecobalamin (vitamin B12) 1,000 1,000 mcg PO QDAY 04/05/25 Unknown History mcg chewable tablet (B12 Active) ropinirole 1 mg tablet See Rx Instructions PO QHS PRN 04/05/25 Unknown History restless leg carvedilol 6.25 mg tablet 6.25 mg PO BID #180 tabs 04/08/25 Unknown Rx furosemide 40 mg tablet 40 mg PO .COMPLEX #270 tabs 04/27/25 Unknown Rx gabapentin 100 mg capsule 100 mg PO QDAY 04/27/25 Unknown History montelukast 10 mg tablet 10 mg PO QHS Respiratory #90 tabs 05/21/25 Unknown Rx hydralazine 100 mg tablet 100 mg PO BID hypertension #180 05/24/25 Unknown Rx tabs magnesium oxide 500 mg capsule 500 mg PO QDAY 05/31/25 Unknown History pantoprazole 40 mg tablet,delayed 40 mg PO DAILY reflux #90 tabs 06/11/25 Unknown Rx release insulin aspart U-100 100 unit/mL 10 unit (0.1 mL) subcut TID PRN 06/21/25 Unknown Rx subcutaneous cartridge (Novolog diabetes #15 mL PenFill U-100 Insulin aspart) insulin glargine 100 unit/mL (3 20 unit (0.2 mL) subcut DAILY 06/21/25 Unknown Rx mL) subcutaneous pen (Lantus diabetes #15 mL Solostar U-100 Insulin) pen needle, diabetic 31 gauge x #100 ea 06/21/25 Unknown Rx 1/4 (Unifine Pentips) empagliflozin 10 mg tablet 10 mg PO DAILY #90 tabs 06/28/25 Unknown Rx (Jardiance) ferrous sulfate 325 mg (65 mg 325 mg PO DAILY low iron #30 tabs 06/28/25 Unknown Rx iron) tablet (FeroSul) atorvastatin 40 mg tablet 40 mg PO QODAY cholesterol #60 tabs 07/13/25 Unknown Rx potassium chloride 20 mEq 20 meq PO BID supplement #60 tabs 07/13/25 Unknown Rx tablet,extended release(part/cryst) Allergy/AdvReac Type Severity Reaction Status Date / Time cilostazol (From Pletal) Allergy Unknown Verified 07/15/25 03:55 felodipine Allergy Hives Verified 07/15/25 03:55 levofloxacin Allergy Hives Verified 07/15/25 03:55 Sulfa (Sulfonamide Allergy Unknown Verified 07/15/25 03:55 Antibiotics) isosorbide AdvReac Intermediate low BP Verified 07/15/25 03:55 Family History Father Diabetes Cancer Prostate cancer Mother Dementia Brother Parkinsons Brother Cancer H/O vascular surgery Surgical History History of appendectomy History of surgical procedure H/O vascular surgery History of surgical procedure History of transurethral resection of prostate History of endarterectomy (07/2018) History of left heart catheterization (03/2014) History of coronary artery stent placement (02/17/08) History of vascular surgery (08/2018) History of hernia repair H/O aortic aneurysm repair (11/1998) Social History household members: spouse 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 status: retired current occupation: [employer] Smoking Status: Former smoker quit date: 08/07/08 pack-years: 2 Tobacco: How many years used: 52 Electronic Cigarette Use: not used how long ago did patient quit smokin years ago alcohol intake: current alcohol intake frequency: holidays/special occasions only details: hx of alcohol abuse substance use type: does not use caffeine: No what type of physical activity do you participate in: other details: Nustep frequency: 5-6 times per week duration: 15-30 minutes/day seatbelt use: always do you feel safe at home: Yes EXAM Physical Exam Const Vital Signs: 07/15/25 03:55 07/15/25 03:59 07/15/25 05:55 Temperature 98.7 F Temperature Source Oral Pulse Rate 74 70 Respiratory Rate 16 18 Respiratory Effort Normal Respiratory Pattern Normal Blood Pressure 150/64 H 134/57 H Blood Pressure Mean 92 82 Pulse Ox 95 94 Oxygen Delivery Method Room Air 07/15/25 07:00 Temperature Temperature Source Pulse Rate 83 Respiratory Rate 18 Respiratory Effort Respiratory Pattern Blood Pressure 122/93 H Blood Pressure Mean 102 Pulse Ox 94 Oxygen Delivery Method Room Air MDM MDM MDM Narrative Medical decision making narrative: 89-year-old male with multiple comorbidities including CHF, COPD, CKD, atrial fibrillation on Eliquis, HLD, DM2, HTN presents for evaluation of generalized weakness. Patient states shortly after eating supper he had an episode of emesis. States he went to use the bathroom this evening and had generalized weakness in which he could not get off the toilet. On presentation, patient no acute distress. Afebrile. Differential diagnosis includes but is not limited to electrolyte abnormality, dehydration, UTI, arrhythmia, ACS, hyperglycemia, viral illness, pneumonia. NS bolus. Weakness workup ordered. EKG and chest x-ray reviewed below. CBC with leukocytosis of 22.3. This is new from June. No anemia. D-dimer elevated at 1.23 this is downtrending from November of last year. Cannot rule out PE although I suspect it is elevated from infection versus chronic lung disease and low suspicion for PE given patient is on Eliquis. However, CTA chest ordered. CMP shows mild dehydration with baseline CKD. CTA chest will not be able to be ordered. Will change it to noncontrast. No transaminitis. Troponin 46 and 64. Patient not currently endorsing chest pain. UA positive for UTI. Urine culture sent. CT chest was personally reviewed by myself, concerning for left lower lung pneumonia. This was compared to previous ED on 07/08 which was not present. Patient ordered Rocephin and azithromycin. Awaiting official read by radiology. Patient will warrant admission. Patient and were updated of all the results and confirmed understanding of the plan. Patient was discussed with hospitalist who accepted admission. EKG: Interpreted by me/EM physician: EKG shows atrial fibrillation with nonspecific ST changes. Heart rate 65 Diagnostic: Interpreted by me/EM physician: Chest x-ray without focal pneumonia, effusion, pneumothorax. Patient has cardiomegaly. Per radiology increase by a lateral basilar atelectatic changes/infiltrates. Impression: 1. Pneumonia 2. UTI 3. Generalized weakness 4. CKD 5. Elevated troponin Lab Data Labs: Laboratory Results - last 24 hr 07/15/25 07/15/25 07/15/25 03:50 04:31 05:43 WBC 22.3 H RBC 4.57 L Hgb 14.3 Hct 43.8 MCV 95.8 H MCH 31.3 MCHC 32.6 RDW Std Deviation 49.2 H RDW Coeff of Justin 14.0 Plt Count 295 MPV 10.6 Immature Gran % (Auto) 0.800 Neut % (Auto) 91.0 H Lymph % (Auto) 3.0 L [place] % (Auto) 5.0 Eos % (Auto) 0.0 Baso % (Auto) 0.2 Absolute Neuts (auto) 20.3 H Absolute Lymphs (auto) 0.66 L Nucleated RBC % 0 Differential Comment SCANNED D-Dimer Quant (PE/DVT) 1.23 H* Sodium 135 Potassium 4.1 Chloride 93 L Carbon Dioxide 25.4 Anion Gap 17 H BUN 57 H Creatinine 2.56 H Estim Creat Clear Calc 20.51 L Est GFR (MDRD) Non-Af 23 L BUN/Creatinine Ratio 22.4 H Glucose 213 H Calcium 10.0 Total Bilirubin 0.73 AST 23 ALT 16 Alkaline Phosphatase 87 Troponin T High Sens 46 H D Troponin T Hi Sens 2 Hr Total Protein 7.8 Albumin 4.5 Globulin 3.3 Albumin/Globulin Ratio 1.4 Urine Color Yellow Urine Clarity Clear Urine pH 6.0 Ur Specific [place] 1.010 Urine Protein 30 H Urine Glucose (UA) 1000 H Urine Ketones Negative Urine Occult Blood Negative Urine Nitrite Negative Urine Bilirubin Negative Urine Urobilinogen Normal Ur Leukocyte Esterase 500 H Urine RBC 0 SEEN Urine WBC 10-25 SEEN Ur Squamous Epith Cells 0-5 SEEN Urine Bacteria 1+ Urine Mucus 0 SEEN POC Glucose 205 H 07/15/25 06:06 WBC RBC Hgb Hct MCV MCH MCHC RDW Std Deviation RDW Coeff of Justin Plt Count MPV Immature Gran % (Auto) Neut % (Auto) Lymph % (Auto) [place] % (Auto) Eos % (Auto) Baso % (Auto) Absolute Neuts (auto) Absolute Lymphs (auto) Nucleated RBC % Differential Comment D-Dimer Quant (PE/DVT) Sodium Potassium Chloride Carbon Dioxide Anion Gap BUN Creatinine Estim Creat Clear Calc Est GFR (MDRD) Non-Af BUN/Creatinine Ratio Glucose Calcium Total Bilirubin AST ALT Alkaline Phosphatase Troponin T High Sens Troponin T Hi Sens 2 Hr 64 H* Total Protein Albumin Globulin Albumin/Globulin Ratio Urine Color Urine Clarity Urine pH Ur Specific [place] Urine Protein Urine Glucose (UA) Urine Ketones Urine Occult Blood Urine Nitrite Urine Bilirubin Urine Urobilinogen Ur Leukocyte Esterase Urine RBC Urine WBC Ur Squamous Epith Cells Urine Bacteria Urine Mucus POC Glucose Radiography Diagnostic Testing: Clinical Impression(s) from Imaging Studies Chest X-Ray 07/15/25 04:45 IMPRESSION: Increased bilateral basilar atelectatic changes/infiltrates. [facility] Discharge Plan Triage Chief Complaint: General Illness ED Provider: Dalton Del Angel Dx/Rx/DC Orders Prescriptions: No Action (DME) handicap placcard Qty: 1 0RF Rx Instructions: Lifetime: debility coenzyme Q10 [Co Q-10] 100 mg capsule 100 mg PO DAILY cholecalciferol (vitamin D3) 100 mcg (4,000 unit) tablet 100 mcg PO DAILY (DME) spacer See Rx Instructions .ROUTE .MEDSUPPLY Qty: 1 0RF Rx Instructions: As directed (DME) [facility] [place] See Rx Instructions .Route Qty: 180 1RF Rx Instructions: twice daily tamsulosin 0.4 mg capsule 0.4 mg PO DAILY Patient Comments: PT TAKES SOMETIMES furosemide 40 mg tablet 40 mg PO .COMPLEX Qty: 270 0RF Rx Instructions: 40 mg orally ; 2 tablets every morning, 1 tablet at 4:00 daily; magnesium oxide 500 mg capsule 500 mg PO QDAY (DME) FreeStyle [place] 3 [place] Misc See Rx Instructions .Route Qty: 1 0RF Rx Instructions: As directed (DME) FreeStyle [place] 3 Plus Sensor Device See Rx Instructions .Route Qty: 3 2RF Rx Instructions: As directed budesonide-formoterol [Symbicort] 160-4.5 mcg/actuation HFA aerosol inhaler 2 puff inhalation BID Qty: 3 3RF Rx Instructions: administer with spacer, rinse mouth after each use lactulose 10 gram/15 mL solution 20 g PO DAILY PRN (Reason: constipation) ropinirole 1 mg tablet See Rx Instructions PO QHS PRN (Reason: restless leg) Rx Instructions: 2-3 orally at bedtime PRN; administer 2-3 tablets, 1-3 hours before bedtime mecobalamin (vitamin B12) [B12 Active] 1,000 mcg tablet,chewable 1,000 mcg PO QDAY gabapentin 100 mg capsule 100 mg PO QDAY Rx Instructions: SPECIAL INSTRUCTIONS CAN USE UP TO 300 PRN (DME) pen needle, diabetic [Unifine Pentips] 31 gauge x 1/4 needle See Rx Instructions .ROUTE .COMPLEX Qty: 100 1RF Dose Instruction: use 3 TO 4 needles daily Rx Instructions: use 3 TO 4 needles daily insulin aspart U-100 [Novolog PenFill U-100 Insulin] 100 unit/mL cartridge 10 unit subcut TID PRN (Reason: diabetes) Qty: 15 0RF Rx Instructions: hold if glucose is under 130 insulin glargine [Lantus Solostar U-100 Insulin] 100 unit/mL (3 mL) insulin pen 20 unit subcut DAILY Qty: 15 0RF finasteride 5 mg tablet 5 mg PO DAILY Patient Comments: PT TAKES AT NIGHT ipratropium bromide 21 mcg (0.03 %) spray,non-aerosol 2 spray intranasal BID PRN (Reason: allergy symptoms) Rx Instructions: administer into each nostril ipratropium-albuterol 0.5 mg-3 mg(2.5 mg base)/3 mL solution for nebulization 3 ml inhalation TID Rx Instructions: 3 mL inhaled; (DME) handicap placard See Rx Instructions .ROUTE .MEDSUPPLY Qty: 1 0RF Rx Instructions: Length of time: 5 years Diganosis: Impaired physical mobility Eliquis 2.5 mg tablet 2.5 mg PO BID Qty: 180 4RF (DME) OneTouch Ultra Test Strip See Rx Instructions .Route Qty: 180 1RF Rx Instructions: Check three to four times a day. albuterol sulfate [Ventolin HFA] 90 mcg/actuation HFA aerosol inhaler 2 inh INHALATION Q4H PRN (Reason: shortness of breath or wheezing) Qty: 18 6RF ranolazine 500 mg tablet extended release 12 hr 500 mg PO BID Qty: 180 3RF nitroglycerin [Nitrostat] 0.4 mg tablet, sublingual 0.4 mg SUBLINGUAL Q5-15M PRN (Reason: chest pain) Qty: 25 2RF carvedilol 6.25 mg tablet 6.25 mg PO BID Qty: 180 3RF Rx Instructions: must administer with a meal/food montelukast 10 mg tablet 10 mg PO QHS Qty: 90 3RF hydralazine 100 mg tablet 100 mg PO BID Qty: 180 3RF pantoprazole 40 mg tablet,delayed release (DR/EC) 40 mg PO DAILY Qty: 90 3RF Jardiance 10 mg tablet 10 mg PO DAILY Qty: 90 3RF ferrous sulfate [FeroSul] 325 mg (65 mg iron) tablet 325 mg PO DAILY Qty: 30 2RF Rx Instructions: 1 tablet daily atorvastatin 40 mg tablet 40 mg PO QODAY Qty: 60 3RF Rx Instructions: at bedtime potassium chloride 20 mEq tablet,ER particles/crystals 20 meq PO BID Qty: 60 2RF Primary Care Provider: Carolynn Whitman Referrals: Carolynn Whitman MD [Primary Care Provider, Internal Medicine] Print Language: Prydeinig
[2025-07-15] MEDS: 0.9% Normal Saline (500mL Bag) 500 ML 999 ML IV (04:42)
--- NOTE | 2025-07-15 04:45 | RAD_ITS ---
PROCEDURE: CHEST PA AND LATERAL 07/15/2025 REASON FOR EXAM: WEAKNESS TECHNIQUE: Procedure Code: RADCXR Modality: DX Procedure: CHEST PA AND LATERAL COMPARISON: 06/14/2025. FINDINGS: Unremarkable right clavicular metallic plate and screws. Increased bilateral basilar atelectatic changes/infiltrates. There is no demonstrated pleural abnormality. Enlarged cardiac silhouette. Normal mediastinum and frank. Normal visualized pulmonary arteries. Atheromatous plaques of the visualized aortic arch and descending thoracic aorta. Diffuse spondylosis of the visualized thoracic spine. Normal visualized ribs, clavicles. Degenerative joint disease. There is no demonstrated abnormality of the visualized soft tissue structures of the upper abdomen. RAD/Chest PA and Lateral IMPRESSION: Increased bilateral basilar atelectatic changes/infiltrates. Reading [facility]
[2025-07-15 05:11] LABS: D-Dimer Quantitative (DVT/PE) 1.23 FEU/ug/m (0.27-0.49)
[2025-07-15 05:13] LABS: Troponin T High Sensitivity 46 ng/L (<=22)
--- NOTE | 2025-07-15 05:14 | CT_ITS ---
PROCEDURE: CHEST WITHOUT CONTRAST 07/15/2025 REASON FOR EXAM: COUGH TECHNIQUE: Chest CT without contrast. Coronal and Sagittal reconstruction series were provided. One or more dose reduction techniques were used (e.g., Automated exposure control, adjustment of the mA and/or kV according to patient size, use of iterative reconstruction technique RADIATION DOSE SUMMARY: CTDlvol: 14 mGy DLP: 558 mGycm COMPARISON: July 08, 2025 FINDINGS: Hardware: The leads. Right clavicle plate and screws. Lymph nodes: None appear enlarged. Heart and Vasculature: Enlarged. No pericardial effusion. Aortic and mitral valve annular calcification. Advanced atherosclerosis of the aorta without aneurysm. Coronary Artery Calcifications: Present Lungs and Airways: Severe upper lobe predominant centrilobular emphysema is present. Some scarring is seen with local volume loss in the right middle lobe. Mild bronchiolar wall thickening. No change. Some mucoid impaction is shown in the interlobar bronchus and in the segmental bronchi. There is some associated atelectasis and small airways disease. Pleura: Subpleural nodularity in the anterior upper lobes in the juxta phrenic right lower lobe. Upper Abdomen: Renal cysts partially imaged. Bones: Degenerative changes of the thoracic spine. CT/Chest without Contrast IMPRESSION: 1. Severe emphysema. 2. New mucoid impaction, subsegmental atelectasis and small airways process in the left lower lobe. Concomitant infection including atypical organisms such as MARK/MAC and fungal infection like coccidio idomycosis are in the differential. 3. No change in the scarring and local volume loss involving the lingula. 4. Cardiac enlargement. Advanced atherosclerosis. Reading Location: [id number]
[2025-07-15 05:17] LABS: AST(SGOT) 23 U/L (<=37); Alanine Aminotransfer ALT/SGPT 16 U/L (<=46); Albumin, Serum 4.5 g/dL (3.4-4.8); Alkaline Phosphatase 87 U/L (40-129); Anion Gap 17 (5-15); BUN 57 mg/dL (4-19); BUN/Creat Ratio 22.4 RATIO (10-20); Calcium,Total 10.0 mg/dL (7.6-11.0); Carbon Dioxide 25.4 mmol/L (21.0-32.0); Chloride 93 mmol/L (98-108); Estimated Creatinine Clearance 20.51 ml/min (50-250); Globulin 3.3 g/dL (2.2-4.2); Glucose 213 mg/dL (70-99); Potassium 4.1 mmol/L (3.3-5.1)
[2025-07-15 05:27] LABS: Hematocrit 43.8 % (40-54); Hemoglobin 14.3 g/dL (13.0-16.5); Immature Granulocytes Count 0.180 X10^3/uL (0.0-0.0); Mean Corp Hgb Conc 32.6 g/dL (32-36); Mean Corpuscular Volume 95.8 fL (80-94); Mean Platelet Vol. 10.6 fl (6.2-12.0); NRBC Flagged by Analyzer 0 % (0-5); POSITIVE DIFFERENTIAL YES; Platelet Count 295 K/mm3 (150-450); RBC Distribution Width CV 14.0 % (11.6-14.6); RBC Distribution Width SD 49.2 fl (35.1-43.9); Red Blood Count 4.57 M/mm3 (4.6-6.2); White Blood Count 22.3 K/mm3 (4.4-11.0)
[2025-07-15 05:53] LABS: Color, Urine Yellow (Yellow); Glucose, Dipstick 1000 mg/dl (Normal); Ketone-Dipstick Negative (Negative); Leukocyte Esterase-Dipstick 500 /ul (Negative); Mucous, Urine 0 SEEN /hpf (<or=2+); Nitrite-Dipstick Negative (Negative); Occult Blood-Urine Negative /ul (Negative); Protein-Dipstick 30 mg/dl (Negative); Red Blood Cells-Urine 0 SEEN /hpf (0-5); Specific Gravity, Urine 1.010 (1.002-1.030); Urine Bilirubin Dipstick Negative (Negative)
[2025-07-15 06:05] LABS: Squamous Epithelial Cells - UA 0-5 SEEN /hpf (0-5)
[2025-07-15 06:14] LABS: Differential Indicated SCAN CRITERIA MET
[2025-07-15 06:15] LABS: Differential Comment SCANNED
[2025-07-15 06:36] LABS: Troponin T High Sens 2 HR 64 ng/L (<=22)
--- NOTE | 2025-07-15 07:37 | HP.PCM.HOS_ITS ---
HPI - General General Date of Admission: 07/15/25 Date of Service: 07/15/25 Chief Complaint: Cough, shortness of breath for 2 days HPI Narrative DESIREE ROSAS, is a 89 M with history of COPD, MARIXA on BiPAP, CHF and other multiple comorbidities who came to the ED with generalized weakness, shortness of breath and cough more than normal for last 2 days. He states he felt chest congestion, worsening cough, able to bring up some phlegm thick yellow in color today. Yesterday also felt burning kind of retrosternal chest pain with radiation to her jaw lasted for short and relieved with sublingual nitro. No fever or chills. Patient uses BiPAP at night for sleep apnea and was due for sleep study test today. Today was not able to stand up or walk and felt very weak feeling like going to pass out but she did not pass out. In ED, chest x-ray and CT scan was done which shows left lung opacity. Patient not on oxygen. [facility] Medical History Pneumonia Trigger thumb, left thumb Left wrist pain Hypoxia Tremor Peripheral edema Chronic systolic (congestive) heart failure Unsteady gait when walking Muscle twitching Neuropathy Leukocytosis Obesity (BMI 30.0-34.9) Diastolic CHF, acute on chronic Atrial fibrillation/flutter Right carotid bruit Stable angina GERD (gastroesophageal reflux disease) Myocardial infarct Complicated urinary tract infection Urinary tract infection Colonic mass Controlled type 2 diabetes mellitus Acute respiratory insufficiency Chronic kidney disease Chronic anemia Bilateral edema of lower extremity Fatigue Pleural effusion (HFpEF) heart failure with preserved ejection fraction Colon polyp Lightheadedness Chronic constipation Obstructive sleep apnea Gastroesophageal reflux disease Allergic rhinitis Hyperlipidemia Urinary retention Wears hearing aid Wears dentures Wears glasses Cancer History of steroid therapy Arthritis Kidney stone Easy bruising Back pain Injury of back History of hiatal hernia Former smoker BiPAP (biphasic positive airway pressure) dependence Hoarseness Chronic cough Leg cramps History of pain when walking History of stress test History of heart attack Recurrent urinary tract infection ALMEIDA (dyspnea on exertion) Chest pain Right leg swelling Patellar bursitis of right knee Asthma-COPD overlap syndrome Abdominal aortic aneurysm (AAA) Peripheral vascular disease of extremity with claudication Rectus sheath hematoma Pre-syncope Essential (primary) hypertension Restless legs syndrome Daytime hypersomnia Somatic dysfunction of pelvic region DDD (degenerative disc disease), lumbar Overweight Seasonal allergies Carotid bruit Atherosclerotic heart disease of [place] coronary artery without angina pectoris Home Medications ?Medication ?Instructions ?Recorded ?Last Taken ?Type handicap placcard #1 ea 09/28/19 Unknown Rx coenzyme Q10 100 mg capsule (Co 100 mg PO DAILY supple ment 05/03/20 01/29/25 History Q-10) cholecalciferol (vitamin D3) 100 100 mcg PO DAILY supp lement 11/03/20 01/29/25 History mcg (4,000 unit) tablet spacer #1 ea 01/12/21 Unknown Rx lancets #180 ea 07/18/23 Unknown Rx tamsulosin 0.4 mg capsule 0.4 mg PO DAILY prostate 01/22/25 History finasteride 5 mg tablet 5 mg PO DAILY prostate 06/2801/28/25 History handicap placard #1 ea 10/12/24 Unknown Rx apixaban 2.5 mg tablet (Eliquis) 2.5 mg PO BID atrial fibrillation 12/14/24 02/19/25 Rx #180 tabs ipratropium bromide 21 mcg (0.03 2 spray intranasal BI D PRN allergy 12/14/24 Unknown History %) nasal spray symptoms blood sugar diagnostic (OneTouch #180 ea 12/21/24 Unkn own Rx Ultra Test strips) albuterol sulfate 90 mcg/actuation 2 inh inhalation Q4 H PRN shortness 01/04/25 01/28/25 Rx aerosol inhaler (Ventolin HFA) of breath or wheezing # 18 grams ranolazine 500 mg tablet,extended 500 mg PO BID chest pain #180 tabs 01/26/25 02/19/25 Rx release,12 hr ipratropium 0.5 mg-albuterol 3 mg 3 ml inhalation TID SOB &/OR 01/29/25 01/28/25 History (2.5 mg base)/3 mL nebulization 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,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 installer,cont #1 ea 02/01/25 Unknown Rx (FreeStyle [place]) nitroglycerin 0.4 mg sublingual 0.4 mg sublingual Q5-1 5M PRN chest 02/15/25 Unknown Rx tablet (Nitrostat) pain #25 tabs 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 sensor (FreeStyle #3 ea 03/12/25 Unknown Rx Dwight 3 Plus Sensor device) lactulose 10 gram/15 mL oral 20 g PO DAILY PRN constip ation 03/19/25 Unknown History solution budesonide-formoterol HFA 160 2 puff inhalation BID co pd #3 ea 03/23/25 Unknown Rx mcg-4.5 mcg/actuation aerosol inhaler (Symbicort) mecobalamin (vitamin B12) 1,000 1,000 mcg PO QDAY 03/09 Unknown History mcg chewable tablet (B12 Active) ropinirole 1 mg tablet See Rx Instructions PO QHS P RN 04/05/25 Unknown History restless leg carvedilol 6.25 mg tablet 6.25 mg PO BID #180 tabs 12/29 Unknown Rx furosemide 40 mg tablet 40 mg PO .COMPLEX #270 tabs 04/27/25 Unknown Rx gabapentin 100 mg capsule 100 mg PO QDAY 04/27/25 Unkn own History montelukast 10 mg tablet 10 mg PO QHS Respiratory #90 tabs 05/21/25 Unknown Rx hydralazine 100 mg tablet 100 mg PO BID hypertension # 180 05/24/25 Unknown Rx tabs magnesium oxide 500 mg capsule 500 mg PO QDAY 05/31/25 Unknown History pantoprazole 40 mg tablet,delayed 40 mg PO DAILY reflu x #90 tabs 06/11/25 Unknown Rx release insulin aspart U-100 100 unit/mL 10 unit (0.1 mL) subc ut TID PRN 06/21/25 Unknown Rx subcutaneous cartridge (Novolog diabetes #15 mL PenFill U-100 Insulin aspart) insulin glargine 100 unit/mL (3 20 unit (0.2 mL) subcu t DAILY 06/21/25 Unknown Rx mL) subcutaneous pen (Lantus diabetes #15 mL Solostar U-100 Insulin) pen needle, diabetic 31 gauge x #100 ea 06/21/25 Unkno wn Rx 1/4 (Unifine Pentips) empagliflozin 10 mg tablet 10 mg PO DAILY #90 tabs Unknown Rx (Jardiance) ferrous sulfate 325 mg (65 mg 325 mg PO DAILY low iron #30 tabs 06/28/25 Unknown Rx iron) tablet (FeroSul) atorvastatin 40 mg tablet 40 mg PO QODAY cholesterol # 60 tabs 07/13/25 Unknown Rx potassium chloride 20 mEq 20 meq PO BID supplement #60 tabs 07/13/25 Unknown Rx tablet,extended release(part/cryst) Allergy/AdvReac Type Severity Reaction Status Date / Time cilostazol (From Pletal) Allergy Unknown Verified 07/15/25 03:55 felodipine Allergy Hives Verified 07/15/25 03:55 levofloxacin Allergy Hives Verified 07/15/25 03:55 Sulfa (Sulfonamide Allergy Unknown Verified 07/15/25 03:55 Antibiotics) isosorbide AdvReac Intermediate low BP Verified 07/15/25 03:55 Family History Father Diabetes Cancer Prostate cancer Mother Dementia Brother Parkinsons Brother Cancer H/O vascular surgery Surgical History History of appendectomy History of surgical procedure H/O vascular surgery History of surgical procedure History of transurethral resection of prostate History of endarterectomy (07/2018) History of left heart catheterization (03/2014) History of coronary artery stent placement (02/17/08) History of vascular surgery (08/2018) History of hernia repair H/O aortic aneurysm repair (11/1998) Social History household members: spouse 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 status: retired current occupation: [employer] department Smoking Status: Former smoker quit date: 08/07/08 pack-years: 2 Tobacco: How many years used: 52 Electronic Cigarette Use: not used how long ago did patient quit smokin years ago alcohol intake: current alcohol intake frequency: holidays/special occasions only details: hx of alcohol abuse substance use type: does not use caffeine: No what type of physical activity do you participate in: other details: Nustep frequency: 5-6 times per week duration: 15-30 minutes/day seatbelt use: always do you feel safe at home: Yes ROS ROS Narrative Constitutional: Reports severe fatigue and weakness. No fever. HEENT: Reports systems reviewed and no addt'l complaints, except as documented Respiratory/Chest: As described in HPI. No hypoxia CVS: As described in HPI burning kind of chest pain Gastrointestinal: Denies coffee ground emesis, hematemesis or vomiting Genitourinary: Complained of burning pain in urine and passing air which is unusual. History of BPH. Sometimes he is not able to urinate but not recently Musculoskeletal: As described in HPI. Denies acute joint pain or limited range of motion. No acute injury Neurologic: Denies seizure-like symptoms. skin: No ulcer. No rash Endocrinology: Reports systems reviewed and no addt'l complaints, except as documented Hematologic/Lymphatic: Reports systems reviewed and no addt'l complaints, except as documented Rest 14 ROS are negative except as mentioned in HPI Vital Signs Vital Signs Vital Signs: 07/15/25 03:55 07/15/25 03:59 07/15/25 05:55 Temperature 98.7 F Temperature Source Oral Pulse Rate 74 70 Respiratory Rate 16 18 Respiratory Effort Normal Respiratory Pattern Normal Blood Pressure 150/64 H 134/57 H Blood Pressure Mean 92 82 Pulse Ox 95 94 Oxygen Delivery Method Room Air 07/15/25 07:00 Temperature Temperature Source Pulse Rate 83 Respiratory Rate 18 Respiratory Effort Respiratory Pattern Blood Pressure 122/93 H Blood Pressure Mean 102 Pulse Ox 94 Oxygen Delivery Method Room Air Weight Weight: 197 lb 5.019 oz Body Mass Index (BMI) 32.8 Physical Exam Narrative General: Alert, Oriented x3, Cooperative. Fatigued. BMI 32.8 kg/m? HEENT: Atraumatic, PERRLA, EOMI, Normocephalic. Oral: No Gingival or Mucosal Lesions/ Ulcerations Neck: Supple, No JVD, Negative Carotid Bruits Chest wall/Lungs: Air entry diminished in bilateral lung bases. Bibasilar coarse crepitations posteriorly Cardiovascular: Irregular rate and rhythm, A-fib, systolic murmur. Abdomen: Bowel Sounds Present, Soft, Non Tender, Non-Distended : No dysuria. No renal angle tenderness. No suprapubic tenderness. Extremities: Subtle to minimal pedal edema, Capillary Refill Less than 3 Seconds Skin: No rashes, No breakdown Musculoskeletal: No Tenderness to Palpation of Joints or Extremities Neurological: Cranial nerves II-XII grossly intact, DTR 2+/4. No acute focal neurological deficit. Psych/Mental Status: Normal Affect, Appropriate. Results Lab / Micro Data 07/15/25 03:50 07/15/25 03:50 Labs: Laboratory Results - last 24 hr 07/15/25 03:50: WBC 22.3 H, RBC 4.57 L, Hgb 14.3, Hct 43.8, MCV 95.8 H, MCH 31.3, MCHC 32.6, RDW Std Deviation 49.2 H, RDW Coeff of Justin 14.0, Plt Count 295, MPV 10.6, Immature Gran % (Auto) 0.800, Neut % (Auto) 91.0 H, Lymph % (Auto) 3.0 L, Davidson % (Auto) 5.0, Eos % (Auto) 0.0, Baso % (Auto) 0.2, Absolute Neuts (auto) 20.3 H, Absolute Lymphs (auto) 0.66 L, Nucleated RBC % 0, Differential Comment SCANNED, D-Dimer Quant (PE/DVT) 1.23 H*, Sodium 135, Potassium 4.1, Chloride 93 L, Carbon Dioxide 25.4, Anion Gap 17 H, BUN 57 H, Creatinine 2.56 H, Estim Creat Clear Calc 20.51 L, Est GFR (MDRD) Non-Af 23 L, BUN/Creatinine Ratio 22.4 H, G lucose 213 H, Calcium 10.0, Total Bilirubin 0.73, AST 23, ALT 16, Alkaline Phosphatase 87, Troponin T High Sens 46 H D, Total Protein 7.8, Albumin 4.5, Globulin 3.3, Albumin/Globulin Ratio 1.4 07/15/25 04:31: POC Glucose 205 H 07/15/25 05:43: Urine Color Yellow, Urine Clarity Clear, Urine pH 6.0, Ur Specific [place] 1.010, Urine Protein 30 H, Urine Glucose (UA) 1000 H, Urine Ketones Negative, Urine Occult Blood Negative, Urine Nitrite Negative, Urine Bilirubin Negative, Urine Urobilinogen Normal, Ur Leukocyte Esterase 500 H, Urine RBC 0 SEEN, Urine WBC 10-25 SEEN, Ur Squamous Epith Cells 0-5 SEEN, Urine Bacteria 1+, Urine Mucus 0 SEEN 07/15/25 06:06: Troponin T Hi Sens 2 Hr 64 H* Micro: Microbiology 07/15/25 04:33 Mucosa - Nose SARS-CoV-2, Influenza & RSV (PCR) - Final Imaging Radiology Impression Chest X-Ray 07/15/25 04:45 IMPRESSION: Increased bilateral basilar atelectatic changes/infiltrates. Reading [facility] Assessment & Plan Assessment/Plan (1) Pneumonia: QUALIFIERS: Pneumonia type: due to Pneumococcus Laterality: u nspecified laterality Lung location: unspecified part of lung Qualified Code(s): J13 - Pneumonia due to Streptococcus pneumoniae (2) COPD (chronic obstructive pulmonary disease): QUALIFIERS: COPD type: unspecified COPD Qualified Code(s): J44.9 - Chronic obstructive pulmonary disease, unspecified PLAN: Plan This is a 89-year-old gentleman being admitted for evaluation 2 days of worsening cough, shortness of breath generalized weakness and imaging consistent with left lower lobe pneumonia 1. Acute debility/generalized weakness due to left lower lobe pneumonia: Patient is being admitted in PCU. Chest x-ray and CT initially reviewed. Chest CT without IV contrast shows left lower lobe consolidation consistent with pneumonia. Patient afebrile, not tachypneic or hypoxic. Started on IV ceftriaxone and Zithromax. Speech therapy evaluation. Pneumonia workup ordered. Triple PCR for SARS-CoV-2, flu and RSV are negative 2. Atypical burning retrosternal chest pain yesterday on 07/14: This was resolved with 1 nitro sublingual pill. First 2 troponins are slightly elevated 46 and 64. Monitorings third 1. Patient has history of atherosclerotic heart disease and PAD. Twelve-lead EKG needed which shows A-fib 65 bpm. 3. COPD exacerbation from left lower lobe pneumonia: Patient is being managed on scheduled bronchodilator, IV Solu-Medrol, Mucinex, incentive spirometry and Pep. 4. Chronic A-fib, chronic HFpEF: Patient not showing signs of acute exacerbation of heart failure. Continue home dose of furosemide. Eliquis 2.5 mg twice daily. D-dimer elevated at because of inflammatory reaction/acute phase reactant from pneumonia 5. CKD stage IVb: Patient baseline creatinine is between2.11- 2.41, gradual worsening of CKD. Estimated creatinine clearance 20 to 25 mL/min 6. Type 2 diabetes mellitus: Accu-Chek before meals and at bedtime with Humalog sliding scale coverage and hypoglycemia protocol. Glucose is high at 213 BMP. Continue home dose of insulin with hypoglycemia protocol 7. Hypertension, dyslipidemia restless leg and other chronic comorbidities: Home medication reconciliation 8. DVT prophylaxis: Eliquis 2.5 mg twice daily continued. Living will/advanced directive/end of life care: Patient does not have living will or advanced directive. After discussion of benefits/risks procedures involved with full code, DNR CC arrest and DNR CC, the patient opted for full code. Patient does want artificial life support including intubation, tube feed, ventilator and/chest compression, central venous catheter, vasopressor and DC shock if needed Total time spent in [id number] encounter in discussion of advanced directive 17 minutes. Microbiology Past 72 Hours 07/15/25 04:33 Mucosa - Nose SARS-CoV-2, Influenza & RSV (PCR) - Final Laboratory Results 07/15/25 03:50: WBC 22.3 H, RBC 4.57 L, Hgb 14.3, Hct 43.8, MCV 95.8 H, MCH 31.3, MCHC 32.6, RDW Std Deviation 49.2 H, RDW Coeff of Justin 14.0, Plt Count 295, MPV 10.6, Immature Gran % (Auto) 0.800, Neut % (Auto) 91.0 H, Lymph % (Auto) 3.0 L, [place] % (Auto) 5.0, Eos % (Auto) 0.0, Baso % (Auto) 0.2, Absolute Neuts (auto) 20.3 H, Absolute Lymphs (auto) 0.66 L, Nucleated RBC % 0, Differential Comment SCANNED, D-Dimer Quant (PE/DVT) 1.23 H*, Sodium 135, Potassium 4.1, Chloride 93 L, Carbon Dioxide 25.4, Anion Gap 17 H, B UN 57 H, Creatinine 2.56 H, Estim Creat Clear Calc 20.51 L, Est GFR (MDRD) Non- Af 23 L, BUN/Creatinine Ratio 22.4 H, Glucose 213 H, Calcium 10.0, Total Bilirubin 0.73, AST 23, ALT 16, Alkaline Phosphatase 87, Troponin T High Sens 46 H D, Total Protein 7.8, Albumin 4.5, Globulin 3.3, Albumin/Globulin Ratio 1.4 07/15/25 04:31: POC Glucose 205 H 07/15/25 05:43: Urine Color Yellow, Urine Clarity Clear, Urine pH 6.0, Ur Specific [place] 1.010, Urine Protein 30 H, Urine Glucose (UA) 1000 H, Urine Ketones Negative, Urine Occult Blood Negative, Urine Nitrite Negative, Urine Bilirubin Negative, Urine Urobilinogen Normal, Ur Leukocyte Esterase 500 H, Urine RBC 0 SEEN, Urine WBC 10-25 SEEN, Ur Squamous Epith Cells 0-5 SEEN, Urine Bacteria 1+, Urine Mucus 0 SEEN 07/15/25 06:06: Troponin T Hi Sens 2 Hr 64 H* Clinical Impression(s) from Imaging Studies Chest X-Ray 07/15/25 04:45 IMPRESSION: Increased bilateral basilar atelectatic changes/infiltrates. Reading [facility] [id number] Charges/Coding Visit Charges Inpatient E&M: 92608 Init Hosp L3 Procedures Hospitalists Procedures: 89487 Advncd Care Plan 30 Min
[2025-07-15] MEDS: Azithromycin 500 MG in 0.9% Normal Saline (250mL Bag) 250 ML 250 MG IV (08:32)
[2025-07-15 08:57] LABS: Troponin T High Sens 4 HR 87 ng/L (<=22)
[2025-07-15] MEDS: Aspirin E.C. 81 MG Tablet PO (10:48)
[2025-07-15] MEDS: Senna/Docusate Sodium 1 Tablet 2 TABLET PO ×2 (10:48→22:23)
[2025-07-15] MEDS: guaiFENesin/D-Methorphan TAB.SR.12H 2 TABLET PO ×2 (10:48→22:22)
[2025-07-15] MEDS: Magnesium Chloride 64 MG Delay Rel.Tablet 128 MG PO (10:50)
[2025-07-15] MEDS: Potassium Chloride Oral Tablet 20 MEQ PO ×2 (10:50→17:44)
[2025-07-15] MEDS: Cholecalciferol (VIT D3) 25 MCG TABLET (1,000 UNITS) 100 MCG PO (10:51)
[2025-07-15] MEDS: APIXABAN 2.5 MG TABLET (WCH) PO ×2 (10:51→22:23)
--- NOTE | 2025-07-15 15:18 | CHAPLAIN ---
Type of Pastoral Visit _x__ Initial Visit ___ Follow-up Visit ___ On-call Visit ___ General Patient Visit ___ Spiritual Assessment ___ Family Conference ___ Bereavement ___ Rapid Response ___ Code Blue ___ Other (describe below) Pastoral Care Referral From _x__ Patient ___ Family ___ Nurse ___ Physician ___ Flight Physician ___ Safe Deposit Clerk ___ Other (describe below) Sacrament/Intervention _x__ Active listening ___ Anointing ___ Denominational ___ Bereavement ___ Communion ___ Alaina exploration ___ ___ Life review _x__ Prayer ___ Reconciliation ___ Sacrament of Sick _x__ Supportive presence ___ Wedding ___ Other (describe below) Pastoral Comments patient gives self report on his health and current life situation; pt has a healthy that gives him support; pt does welcome a prayer but looks forward to getting more rest since he was admitted very early this morning
[2025-07-15] MEDS: Insulin Glargine-YFGN 100 UNIT/ML Pen 20 UNIT SC (22:24)
[2025-07-15] MEDS: 0.9% Saline Lock 10 ML Syringe IV (22:30)
[2025-07-16] VITALS (12 sets, daily range): BP systolic 130–152; BP diastolic 58–66; PULSE 57–75; RESP 17–20; TEMP 36.1–36.8; O2SAT 90–98; BMI 29.7
[2025-07-16] MEDS: 0.9% Saline Lock 10 ML Syringe IV ×4 (05:51→14:47)
[2025-07-16 06:13] LABS: Hematocrit 35.5 % (40-54); Hemoglobin 12.6 g/dL (13.0-16.5); Immature Granulocytes Count 0.140 X10^3/uL (0.0-0.0); Mean Corp Hgb Conc 35.5 g/dL (32-36); Mean Corpuscular Volume 98.1 fL (80-94); Mean Platelet Vol. 10.4 fl (6.2-12.0); NRBC Flagged by Analyzer 0 % (0-5); POSITIVE DIFFERENTIAL YES; Platelet Count 263 K/mm3 (150-450); RBC Distribution Width CV 14.0 % (11.6-14.6); RBC Distribution Width SD 49.1 fl (35.1-43.9); Red Blood Count 3.62 M/mm3 (4.6-6.2); White Blood Count 15.7 K/mm3 (4.4-11.0)
[2025-07-16 06:33] LABS: Anion Gap 13 (5-15); BUN 59 mg/dL (4-19); BUN/Creat Ratio 26.5 RATIO (10-20); Calcium,Total 9.3 mg/dL (7.6-11.0); Carbon Dioxide 23.3 mmol/L (21.0-32.0); Chloride 100 mmol/L (98-108); Estimated Creatinine Clearance 22.34 ml/min (50-250); Glucose 221 mg/dL (70-99); Potassium 4.0 mmol/L (3.3-5.1)
[2025-07-16] MEDS: Potassium Chloride Oral Tablet 20 MEQ PO ×2 (10:02→17:07)
[2025-07-16] MEDS: Magnesium Chloride 64 MG Delay Rel.Tablet 128 MG PO (10:03)
[2025-07-16] MEDS: Aspirin E.C. 81 MG Tablet PO (10:03)
[2025-07-16] MEDS: Cholecalciferol (VIT D3) 25 MCG TABLET (1,000 UNITS) 100 MCG PO (10:04)
[2025-07-16] MEDS: guaiFENesin/D-Methorphan TAB.SR.12H 2 TABLET PO ×2 (10:04→21:31)
[2025-07-16] MEDS: Senna/Docusate Sodium 1 Tablet 2 TABLET PO ×2 (10:04→21:33)
[2025-07-16] MEDS: Ceftriaxone 2 GM in 0.9% Normal Saline (50mL MB+) 50 ML IV (10:05)
[2025-07-16] MEDS: APIXABAN 2.5 MG TABLET (WCH) PO ×2 (10:05→21:32)
--- NOTE | 2025-07-16 10:15 | PCM.PN.HOSP ---
Reason for Visit Chief Complaint: Cough, shortness of breath for 2 days Objective Data Objective Data Vital Signs: Vital Signs Temp Pulse Resp BP Pulse Ox O2 Del Method 98.0 F 63 18 130/65 H 95 Room Air 07/16/25 09:56 07/16/25 10:02 07/16/25 09:56 07/16/25 09:56 07/16/25 09:56 07/16/25 09:56 Oxygen Delivery Method Room Air Weight: 178 lb 9.191 oz Body Mass Index (BMI) 29.7 Intake & Output: Intake and Output for Last 24 Hours 07/14/25 07/15/25 07/16/25 23:59 23:59 23:59 Intake Total 1850 / 1850 240 / 240 Balance 1850 / 1850 240 / 240 Lab / Micro Data 07/16/25 05:39 07/16/25 05:39 Labs: Laboratory Results - last 24 hr 07/15/25 11:55: POC Glucose 223 H 07/15/25 16:23: POC Glucose 161 H 07/15/25 22:21: POC Glucose 219 H 07/16/25 05:39: WBC 15.7 H, RBC 3.62 L, Hgb 12.6 L, Hct 35.5 L, MCV 98.1 H, MCH 34.8 H, MCHC 35.5 D, RDW Std Deviation 49.1 H, RDW Coeff of Justin 14.0, Plt Count 263, MPV 10.4, Immature Gran % (Auto) 0.900, Neut % (Auto) 95.0 H, Lymph % (Auto) 3.1 L, Stafford % (Auto) 0.8, Eos % (Auto) 0.1, Baso % (Auto) 0.1, Absolute Neuts (auto) 14.9 H, Absolute Lymphs (auto) 0.49 L, Nucleated RBC % 0, Sodium 136, Potassium 4.0, Chloride 100, Carbon Dioxide 23.3, Anion Gap 13, BUN 59 H, Creatinine 2.24 H, Estim Creat Clear Calc 22.34 L, Est GFR (MDRD) Non-Af 28 L, BUN/Creatinine Ratio 26.5 H, Glucose 221 H, Hemoglobin A1c 6.9 H, Calcium 9.3 07/16/25 08:42: POC Glucose 206 H Micro: Microbiology 07/15/25 05:43 Urine, Catheterized Urine Culture - Preliminary GNR lactose corrosion engineer 07/15/25 16:25 Nasal Secretion MRSA (PCR) - Final 07/15/25 05:43 Urine, Random Legionella Antigen - Final 07/15/25 05:43 Urine, Random Streptococcus pneumoniae Antigen (M - Final 07/15/25 08:55 Mucosa - Nasopharyngeal Respiratory Panel (PCR) - Final 07/15/25 04:33 Mucosa - Nose SARS-CoV-2, Influenza & RSV (PCR) - Final Physical Exam Narrative Seen and examined Patient shortness of breath is much better. Did not had chest pain pressure or tightness. Physical exam General: Alert, Oriented x3, Cooperative. BMI 32.8 kg/m? HEENT: Atraumatic, PERRLA, EOMI, Normocephalic. Oral: No Gingival or Mucosal Lesions/ Ulcerations Neck: Supple, No JVD, Negative Carotid Bruits Chest wall/Lungs: Air entry diminished in bilateral lung bases. Coarse crepitations have improved Cardiovascular: Irregular rate and rhythm, A-fib, systolic murmur. Abdomen: Bowel Sounds Present, Soft, Non Tender, Non-Distended : No dysuria. No renal angle tenderness. No suprapubic tenderness. Extremities: Subtle to minimal pedal edema, Capillary Refill Less than 3 Seconds Skin: No rashes, No breakdown Musculoskeletal: No Tenderness to Palpation of Joints or Extremities Neurological: Cranial nerves II-XII grossly intact, DTR 2+/4. No acute focal neurological deficit. Psych/Mental Status: Normal Affect, Appropriate. Assessment & Plan Assessment/Plan (1) Pneumonia: QUALIFIERS: Laterality: unspecified laterality Lung location: unspecified part of lung Pneumonia type: due to Pneumococcus Qualified Code(s): J13 - Pneumonia due to Streptococcus pneumoniae (2) COPD (chronic obstructive pulmonary disease): QUALIFIERS: COPD type: unspecified COPD Qualified Code(s): J44.9 - Chronic obstructive pulmonary disease, unspecified PLAN: Plan This is a 89-year-old gentleman being admitted for evaluation 2 days of worsening cough, shortness of breath generalized weakness and imaging consistent with left lower lobe pneumonia 1. Acute debility/generalized weakness due to left lower lobe pneumonia: Patient is being admitted in PCU. Chest x-ray and CT initially reviewed. Chest CT without IV contrast shows left lower lobe consolidation consistent with pneumonia. Patient afebrile, not tachypneic or hypoxic. Started on IV ceftriaxone and Zithromax. Speech therapy evaluation. Pneumonia workup ordered. Triple PCR for SARS-CoV-2, flu and RSV are negative 07/16: Gram stain of sputum culture shows rare GNR, yeastlike organism, 2+ GPC. Urinary culture shows GNR lactose corrosion engineer more than 100,000 colonies. Respiratory panel and urinary antigens and MRSA PCR are negative. Continue antibiotic. Patient clinically feeling better. Leukocytosis improving. 2. Atypical burning retrosternal chest pain on 07/14 with elevated troponins: This was resolved with 1 nitro sublingual pill. First 2 troponins are slightly elevated 46 and 64. Monitorings third 1. Patient has history of atherosclerotic heart disease and PAD. Twelve-lead EKG needed which shows A-fib 65 bpm. 07/16: Patient did not have chest pain in last 2 days. Elevated troponins due to acute myocardial injury: Patient has evidence of myocardial injury within the rising troponins level of 99 percentile. 3. COPD exacerbation from left lower lobe pneumonia: Patient is being managed on scheduled bronchodilator, IV Solu-Medrol, Mucinex, incentive spirometry and Pep. 07/16: Solu-Medrol changed to prednisone. 4. Chronic A-fib, chronic HFpEF: Patient not showing signs of acute exacerbation of heart failure. Continue home dose of furosemide. Eliquis 2.5 mg twice daily. D-dimer elevated at because of inflammatory reaction/acute phase reactant from pneumonia 5. CKD stage IVb: Patient baseline creatinine is between2.11- 2.41, gradual worsening of CKD. Estimated creatinine clearance 20 to 25 mL/min 07/16: BUN/creatinine 59/2.24 within baseline. 6. Type 2 diabetes mellitus: Accu-Chek before meals and at bedtime with Humalog sliding scale coverage and hypoglycemia protocol. Glucose is high at 213 BMP. Continue home dose of insulin with hypoglycemia protocol 07/16: A1c 6.9%. Glucose about 200 to 220 mg/dL. Lantus insulin and Humalog insulin dose increased. 7. Hypertension, dyslipidemia restless leg and other chronic comorbidities: Home medication reconciliation 8. DVT prophylaxis: Eliquis 2.5 mg twice daily continued. Living will/advanced directive/end of life care: Patient does not have living will or advanced directive. After discussion of benefits/risks procedures involved with full code, DNR CC arrest and DNR CC, the patient opted for full code. Patient does want artificial life support including intubation, tube feed, ventilator and/chest compression, central venous catheter, vasopressor and DC shock if needed Total time spent in [id number] encounter in discussion of advanced directive 17 minutes. Microbiology Past 72 Hours 07/16/25 07:30 Sputum, Expectorated/Coughed Gram Stain - Final 07/15/25 05:43 Urine, Catheterized Urine Culture - Preliminary GNR lactose corrosion engineer 07/15/25 16:25 Nasal Secretion MRSA (PCR) - Final 07/15/25 05:43 Urine, Random Legionella Antigen - Final 07/15/25 05:43 Urine, Random Streptococcus pneumoniae Antigen (M - Final 07/15/25 08:55 Mucosa - Nasopharyngeal Respiratory Panel (PCR) - Final 07/15/25 04:33 Mucosa - Nose SARS-CoV-2, Influenza & RSV (PCR) - Final Laboratory Results 07/15/25 16:23: POC Glucose 161 H 07/15/25 22:21: POC Glucose 219 H 07/16/25 05:39: WBC 15.7 H, RBC 3.62 L, Hgb 12.6 L, Hct 35.5 L, MCV 98.1 H, MCH 34.8 H, MCHC 35.5 D, RDW Std Deviation 49.1 H, RDW Coeff of Justin 14.0, Plt Count 263, MPV 10.4, Immature Gran % (Auto) 0.900, Neut % (Auto) 95.0 H, Lymph % (Auto) 3.1 L, Stafford % (Auto) 0.8, Eos % (Auto) 0.1, Baso % (Auto) 0.1, Absolute Neuts (auto) 14.9 H, Absolute Lymphs (auto) 0.49 L, Nucleated RBC % 0, Sodium 136, Potassium 4.0, Chloride 100, Carbon Dioxide 23.3, Anion Gap 13, BUN 59 H, Creatinine 2.24 H, Estim Creat Clear Calc 22.34 L, Est GFR (MDRD) Non-Af 28 L, BUN/Creatinine Ratio 26.5 H, Glucose 221 H, Hemoglobin A1c 6.9 H, Calcium 9.3 07/16/25 08:42: POC Glucose 206 H 10/10/25 13:27: POC Glucose 206 H Clinical Impression(s) from Imaging Studies Chest X-Ray 07/15/25 04:45 IMPRESSION: Increased bilateral basilar atelectatic changes/infiltrates. Reading [facility] Charges/Coding Visit Charges Inpatient E&M: 46724 Subs Hosp L2
[2025-07-16] MEDS: Azithromycin 500 MG in 0.9% Normal Saline (250mL Bag) 250 ML 250 MG IV (10:43)
--- NOTE | 2025-07-16 11:45 | CASEMGMT ---
RN CM Face to Face with patient for initial transition planning/care coordination assessment. RN CM introduced self and role at [facility]. Patient sitting in chair, alert and oriented, at bedside. Patient willing to participate in assessment and is able to answer all questions appropriately. Care providers, pharmacy, and demographics verified. Strata: 3 PCP: J Carlos Specialists: Zeke Mckenna, dermatology; Salena, neurologist; Stephen, vascular; Andrae, spice cleaner; Venancio Painter, monument stonecutter; Patricio, pain; Ignacio, atlassian administrator; Caitlyn, whizzer hand Preferred Pharmacy: [facility] Insurance: [facility] Prescription Benefit: yes Living Will/HPOA: yes, [place] Hernandes LNOK: Living Arrangements: Patient lives with in a 2 story home with bed and bath on first floor, 3 steps and railing to enter the home. Patient states he is independent at home. Transportation: DME/HHC: Patient has shower chair, cane, grab bars, walker, rollator, bipap, nebulizer, pusle ox, glucometer, and scooter at home. Will monitor for home oxygen, prefers [employer]. Patient has been to TCU in the past. No previous HHC. Patient wishes to discharge home, denies need for home health at this time. Patient states he has no further needs or concerns at this time. CM to follow for discharge planning needs that may arise. Disposition Plan: Patient to discharge home with family support and follow-up plans in place. Will montior for home oxygen, green sheet on chart. Tessa MIRELES, RN, CM
--- NOTE | 2025-07-16 15:29 | CASEMGMT ---
COLLEEN BECERRA updated by ST that patient would benefit from outpatient ST at discharge. Script received. COLLEEN BECERRA in to discuss with patient. Patient is not sure if he needs outpatient ST at discharge as he did not have his teeth when he worked with therapy. COLLEEN BECERRA provided script to patient and placed in discharge packet should he reconsider. COLLEEN BECERRA called [place] and updated regarding ST and is agreeable to plan of scheduling on own if they decide patient needs outpatient ST. [place] had no furthe questions or concerns. Discharge plan updated.
[2025-07-16] MEDS: Insulin Glargine-YFGN 100 UNIT/ML Pen 25 UNIT SC (21:37)
[2025-07-17] VITALS (9 sets, daily range): BP systolic 136–155; BP diastolic 59–86; PULSE 50–60; RESP 17–20; TEMP 36.2–36.6; O2SAT 90–100; BMI 31.6
[2025-07-17 06:24] LABS: Hematocrit 34.0 % (40-54); Hemoglobin 11.6 g/dL (13.0-16.5); Immature Granulocytes Count 0.110 X10^3/uL (0.0-0.0); Mean Corp Hgb Conc 34.1 g/dL (32-36); Mean Corpuscular Volume 93.4 fL (80-94); Mean Platelet Vol. 10.0 fl (6.2-12.0); NRBC Flagged by Analyzer 0 % (0-5); POSITIVE DIFFERENTIAL YES; Platelet Count 267 K/mm3 (150-450); RBC Distribution Width CV 13.6 % (11.6-14.6); RBC Distribution Width SD 46.7 fl (35.1-43.9); Red Blood Count 3.64 M/mm3 (4.6-6.2); White Blood Count 16.2 K/mm3 (4.4-11.0)
[2025-07-17] MEDS: 0.9% Saline Lock 10 ML Syringe IV ×3 (06:30→12:32)
[2025-07-17 06:51] LABS: Anion Gap 14 (5-15); BUN 75 mg/dL (4-19); BUN/Creat Ratio 32.3 RATIO (10-20); Calcium,Total 9.4 mg/dL (7.6-11.0); Carbon Dioxide 21.3 mmol/L (21.0-32.0); Chloride 96 mmol/L (98-108); Estimated Creatinine Clearance 22.23 ml/min (50-250); Glucose 287 mg/dL (70-99); Potassium 4.2 mmol/L (3.3-5.1)
[2025-07-17] MEDS: Ceftriaxone 2 GM in 0.9% Normal Saline (50mL MB+) 50 ML IV (09:21)
[2025-07-17] MEDS: Aspirin E.C. 81 MG Tablet PO (09:25)
[2025-07-17] MEDS: APIXABAN 2.5 MG TABLET (WCH) PO (09:26)
[2025-07-17] MEDS: Potassium Chloride Oral Tablet 20 MEQ PO (09:30)
[2025-07-17] MEDS: Magnesium Chloride 64 MG Delay Rel.Tablet 128 MG PO (09:31)
[2025-07-17] MEDS: Cholecalciferol (VIT D3) 25 MCG TABLET (1,000 UNITS) 100 MCG PO (09:31)
[2025-07-17] MEDS: guaiFENesin/D-Methorphan TAB.SR.12H 2 TABLET PO (09:31)
[2025-07-17] MEDS: Senna/Docusate Sodium 1 Tablet 2 TABLET PO (09:31)
[2025-07-17] MEDS: Azithromycin 500 MG in 0.9% Normal Saline (250mL Bag) 250 ML 250 MG IV (10:27)
--- NOTE | 2025-07-17 10:32 | PCM.DC ---
Discharge Instructions DC O2, CPAP, BIPAP needs Home O2 Discharge instructions: No Dressing / Incision Discharge Activity: Return to Normal Activity Weight Bearing Status: Weight bearing as tolerated Dressing / Incision Call your doctor if you observe: Fever of 101 or Higher, Coldness, Increased Pain, Numbness or Tingling, Change in Color, Inability to urinate, Inability to have a bowel movement, Shortness of breath, Dizziness, Fainting spells, Swelling in the ankles, Chest pain, Prolonged hiccupping, Increased palpitations (irregular heartbeat) and Calf discomfort Follow Up Care When: IN 2 WEEKS Test Results: Test results from this visit will be discussed in further detail at your follow-up appointment, if applicable. Discharge Plan Admission Admit Date/Time: 07/15/25 07:32 Primary Reason for Your Visit: Left lower lobe pneumonia, mild COPD exacerbation Attending Provider: Fernandez Santana Primary Care Provider: Carolynn Whitman Instructions Additional Instructions / Restrictions: Outpatient speech therapy prescription signed Discharge Orders/Prescriptions Prescriptions: New dextromethorphan-guaifenesin 60-1,200 mg tablet extended release 12 hr 1 tab PO BID 7 Days Qty: 14 0RF prednisone 20 mg Tablet 40 mg PO BREAKFAST 4 Days Qty: 8 0RF cefdinir 300 mg capsule 300 mg PO BID 5 Days Qty: 10 0RF Continued (DME) handicap placcard Qty: 1 0RF Rx Instructions: Lifetime: debility coenzyme Q10 [Co Q-10] 100 mg capsule 100 mg PO DAILY cholecalciferol (vitamin D3) 100 mcg (4,000 unit) tablet 100 mcg PO DAILY (DME) spacer See Rx Instructions .ROUTE .MEDSUPPLY Qty: 1 0RF Rx Instructions: As directed (DME) lancets [facility] See Rx Instructions .Route Qty: 180 1RF Rx Instructions: twice daily tamsulosin 0.4 mg capsule 0.4 mg PO DAILY Patient Comments: PT TAKES SOMETIMES furosemide 40 mg tablet 40 mg PO .COMPLEX Qty: 270 0RF Rx Instructions: 40 mg orally ; 2 tablets every morning, 1 tablet at 4:00 daily; magnesium oxide 500 mg capsule 500 mg PO QDAY (DME) FreeStyle [place] 3 [place] Misc See Rx Instructions .Route Qty: 1 0RF Rx Instructions: As directed (DME) FreeStyle [place] 3 Plus Sensor Device See Rx Instructions .Route Qty: 3 2RF Rx Instructions: As directed budesonide-formoterol [Symbicort] 160-4.5 mcg/actuation HFA aerosol inhaler 2 puff inhalation BID Qty: 3 3RF Rx Instructions: administer with spacer, rinse mouth after each use lactulose 10 gram/15 mL solution 20 g PO DAILY PRN (Reason: constipation) ropinirole 1 mg tablet See Rx Instructions PO QHS PRN (Reason: restless leg) Rx Instructions: 2-3 orally at bedtime PRN; administer 2-3 tablets, 1-3 hours before bedtime mecobalamin (vitamin B12) [B12 Active] 1,000 mcg tablet,chewable 1,000 mcg PO QDAY gabapentin 100 mg capsule 100 mg PO QDAY Rx Instructions: SPECIAL INSTRUCTIONS CAN USE UP TO 300 PRN (DME) pen needle, diabetic [Unifine Pentips] 31 gauge x 1/4 needle See Rx Instructions .ROUTE .COMPLEX Qty: 100 1RF Dose Instruction: use 3 TO 4 needles daily Rx Instructions: use 3 TO 4 needles daily finasteride 5 mg tablet 5 mg PO DAILY Patient Comments: PT TAKES AT NIGHT ipratropium bromide 21 mcg (0.03 %) spray,non-aerosol 2 spray intranasal BID PRN (Reason: allergy symptoms) Rx Instructions: administer into each nostril ipratropium-albuterol 0.5 mg-3 mg(2.5 mg base)/3 mL solution for nebulization 3 ml inhalation TID Rx Instructions: 3 mL inhaled; (DME) handicap placard See Rx Instructions .ROUTE .MEDSUPPLY Qty: 1 0RF Rx Instructions: Length of time: 5 years Diganosis: Impaired physical mobility Eliquis 2.5 mg tablet 2.5 mg PO BID Qty: 180 4RF (DME) OneTouch Ultra Test Strip See Rx Instructions .Route Qty: 180 1RF Rx Instructions: Check three to four times a day. albuterol sulfate [Ventolin HFA] 90 mcg/actuation HFA aerosol inhaler 2 inh INHALATION Q4H PRN (Reason: shortness of breath or wheezing) Qty: 18 6RF ranolazine 500 mg tablet extended release 12 hr 500 mg PO BID Qty: 180 3RF nitroglycerin [Nitrostat] 0.4 mg tablet, sublingual 0.4 mg SUBLINGUAL Q5-15M PRN (Reason: chest pain) Qty: 25 2RF carvedilol 6.25 mg tablet 6.25 mg PO BID Qty: 180 3RF Rx Instructions: must administer with a meal/food montelukast 10 mg tablet 10 mg PO QHS Qty: 90 3RF hydralazine 100 mg tablet 100 mg PO BID Qty: 180 3RF pantoprazole 40 mg tablet,delayed release (DR/EC) 40 mg PO DAILY Qty: 90 3RF Jardiance 10 mg tablet 10 mg PO DAILY Qty: 90 3RF ferrous sulfate [FeroSul] 325 mg (65 mg iron) tablet 325 mg PO DAILY Qty: 30 2RF Rx Instructions: 1 tablet daily atorvastatin 40 mg tablet 40 mg PO QODAY Qty: 60 3RF Rx Instructions: at bedtime potassium chloride 20 mEq tablet,ER particles/crystals 20 meq PO BID Qty: 60 2RF Changed insulin aspart U-100 [Novolog PenFill U-100 Insulin] 100 unit/mL cartridge 13 unit subcut TID PRN (Reason: diabetes) Qty: 15 0RF Rx Instructions: hold if glucose is under 130 insulin glargine [Lantus Solostar U-100 Insulin] 100 unit/mL (3 mL) insulin pen 25 unit subcut DAILY Qty: 15 0RF Rx Instructions: Hold if glucose less than 130 mg/dl Referrals / Follow Up: Carolynn Whitman MD [Primary Care Provider, Internal Medicine] - Within 1 Week Disposition Disposition (needs filled in before D/C Order can be placed): Home, Self Care
--- NOTE | 2025-07-17 11:47 | DS.PCM_ITS ---
Providers Date of Admission: 07/15/25 Date of Discharge: 07/17/25 Primary Care Physician: Dr. Carolynn Whitman MD Reason For Visit: LLL PNEUMONIA Diagnosis Discharge Diagnosis (1) Pneumonia: Status: Acute Code(s): J18.9 - Pneumonia, unspecified organism Qualifiers: Pneumonia type: due to Pneumococcus Laterality: unspecified laterality Lung location: unspecified part of lung Qualified Code(s): J13 - Pneumonia due to Streptococcus pneumoniae (2) COPD (chronic obstructive pulmonary disease): Status: Chronic Code(s): J44.9 - Chronic obstructive pulmonary disease, unspecified Qualifiers: COPD type: unspecified COPD Qualified Code(s): J44.9 - Chronic obstructive pulmonary disease, unspecified Plan This is a 89-year-old gentleman being admitted for evaluation 2 days of worsening cough, shortness of breath generalized weakness and imaging consistent with left lower lobe pneumonia 1. Acute debility/generalized weakness due to left lower lobe pneumonia: Patient is being admitted in PCU. Chest x-ray and CT initially reviewed. Chest CT without IV contrast shows left lower lobe consolidation consistent with pneumonia. Patient afebrile, not tachypneic or hypoxic. Started on IV ceftriaxone and Zithromax. Speech therapy evaluation. Pneumonia workup ordered. Triple PCR for SARS-CoV-2, flu and RSV are negative 07/16: Gram stain of sputum culture shows rare GNR, yeastlike organism, 2+ GPC. Urinary culture shows GNR lactose angiography technologist more than 100,000 colonies. Respiratory panel and urinary antigens and MRSA PCR are negative. Continue antibiotic. Patient clinically feeling better. Leukocytosis improving. 07/17: Patient is doing good. Vitals in normal range. Pulse ox 97% on room air. Does not need oxygen. Home oxygen qualification test ordered. Clinically pneumonia getting better with no fever no tachycardia. Mild leukocytosis which got better but today is 16.2 K probably from the steroid, reactive leukocytosis from IV Solu-Medrol. Prescription given for prednisone, cefdinir and Mucinex DM. Patient has inhaler at home. 2. Atypical burning retrosternal chest pain on 07/14 with elevated troponins: This was resolved with 1 nitro sublingual pill. First 2 troponins are slightly elevated 46 and 64. Monitorings third 1. Patient has history of atherosclerotic heart disease and PAD. Twelve-lead EKG needed which shows A-fib 65 bpm. 07/16: Patient did not have chest pain in last 2 days. Elevated troponins due to acute myocardial injury: Patient has evidence of myocardial injury within the rising troponins level of 99 percentile. 07/17: No chest pain. Patient on Eliquis 2.5 mg twice daily. 3. COPD exacerbation from left lower lobe pneumonia: Patient is being managed on scheduled bronchodilator, IV Solu-Medrol, Mucinex, incentive spirometry and Pep. 07/16: Solu-Medrol changed to prednisone. 4. Chronic A-fib, chronic HFpEF: Patient not showing signs of acute exacerbation of heart failure. Continue home dose of furosemide. Eliquis 2.5 mg twice daily. D-dimer elevated at because of inflammatory reaction/acute phase reactant from pneumonia 07/17: Heart rate is on the lower side and low 50s. 5. CKD stage IV: Patient baseline creatinine is between2.11- 2.41, gradual worsening of CKD. Estimated creatinine clearance 20 to 25 mL/min 07/16: BUN/creatinine 59/2.24 within baseline. 07/17: Creatinine 2.32. 6. Type 2 diabetes mellitus: Accu-Chek before meals and at bedtime with Humalog sliding scale coverage and hypoglycemia protocol. Glucose is high at 213 BMP. Continue home dose of insulin with hypoglycemia protocol 07/16: A1c 6.9%. Glucose about 200 to 220 mg/dL. Lantus insulin and Humalog insulin dose increased. 7. Hypertension, dyslipidemia restless leg and other chronic comorbidities: Home medication reconciliation 8. DVT prophylaxis: Eliquis 2.5 mg twice daily continued. Discharge medication reconciliation done. Discharge follow-up instructions completed. Discharge process discussed with the patient and all questions were answered to patient's satisfaction. Follow with PCP in 1 to 2 weeks Total time spent, exact 35 minutes on discharge meds reconciliation, examination, coordination of care with nurses and ancillary staff, review of imaging and blood test and discussion with the patient on follow-up instructions. Living will/advanced directive/end of life care: Patient does not have living will or advanced directive. After discussion of benefits/risks procedures involved with full code, DNR CC arrest and DNR CC, the patient opted for full code. Patient does want artificial life support including intubation, tube feed, ventilator and/chest compression, central venous catheter, vasopressor and DC shock if needed Discharge medication reconciliation done. Discharge follow-up instructions completed. Discharge process discussed with the patient and all questions were answered to patient's satisfaction. Follow with PCP in 1 to 2 weeks Total time spent, exact 35 minutes on discharge meds reconciliation, examination, coordination of care with nurses and ancillary staff, review of imaging and blood test and discussion with the patient on follow-up instructions. Microbiology Past 72 Hours 07/16/25 07:30 Sputum, Expectorated/Coughed Gram Stain - Final 07/15/25 05:43 Urine, Catheterized Urine Culture - Preliminary GNR lactose angiography technologist 07/15/25 16:25 Nasal Secretion MRSA (PCR) - Final 07/15/25 05:43 Urine, Random Legionella Antigen - Final 07/15/25 05:43 Urine, Random Streptococcus pneumoniae Antigen (M - Final 07/15/25 08:55 Mucosa - Nasopharyngeal Respiratory Panel (PCR) - Final 07/15/25 04:33 Mucosa - Nose SARS-CoV-2, Influenza & RSV (PCR) - Final Laboratory Results 07/15/25 16:23: POC Glucose 161 H 07/15/25 22:21: POC Glucose 219 H 07/16/25 05:39: WBC 15.7 H, RBC 3.62 L, Hgb 12.6 L, Hct 35.5 L, MCV 98.1 H, MCH 34.8 H, MCHC 35.5 D, RDW Std Deviation 49.1 H, RDW Coeff of Justin 14.0, Plt Count 263, MPV 10.4, Immature Gran % (Auto) 0.900, Neut % (Auto) 95.0 H, Lymph % (Auto) 3.1 L, Wood % (Auto) 0.8, Eos % (Auto) 0.1, Baso % (Auto) 0.1, Absolute Neuts (auto) 14.9 H, Absolute Lymphs (auto) 0.49 L, Nucleated RBC % 0, Sodium 136, Potassium 4.0, Chloride 100, Carbon Dioxide 23.3, Anion Gap 13, BUN 59 H, C reatinine 2.24 H, Estim Creat Clear Calc 22.34 L, Est GFR (MDRD) Non-Af 28 L, B UN/Creatinine Ratio 26.5 H, Glucose 221 H, Hemoglobin A1c 6.9 H, Calcium 9.3 07/16/25 08:42: POC Glucose 206 H 07/16/25 13:27: POC Glucose 206 H Clinical Impression(s) from Imaging Studies Chest X-Ray 07/15/25 04:45 IMPRESSION: Increased bilateral basilar atelectatic changes/infiltrates. [facility] Medications at Discharge Home Medications handicap placcard #1 ea 09/28/19 coenzyme Q10 100 mg capsule (Co Q-10) 100 mg PO DAILY supplement 05/03/20 cholecalciferol (vitamin D3) 100 mcg (4,000 unit) tablet 100 mcg PO DAILY supplement 11/03/20 spacer #1 ea 01/12/21 lancets #180 ea 07/18/23 tamsulosin 0.4 mg capsule 0.4 mg PO DAILY prostate 06/01/24 finasteride 5 mg tablet 5 mg PO DAILY prostate 06/28/24 handicap placard #1 ea 10/12/24 apixaban 2.5 mg tablet (Eliquis) 2.5 mg PO BID atrial fibrillation #180 tabs 12/14/24 ipratropium bromide 21 mcg (0.03 %) nasal spray 2 spray intranasal BID PRN allergy symptoms 12/14/24 blood sugar diagnostic (OneTouch Ultra Test strips) #180 ea 12/21/24 albuterol sulfate 90 mcg/actuation aerosol inhaler (Ventolin HFA) 2 inh inhalation Q4H PRN shortness of breath or wheezing #18 grams 01/04/25 ranolazine 500 mg tablet,extended release,12 hr 500 mg PO BID chest pain #180 tabs 01/26/25 ipratropium 0.5 mg-albuterol 3 mg (2.5 mg base)/3 mL nebulization soln 3 ml inhalation TID SOB &/OR WHEEZING 01/29/25 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,spice miller hammer [place],cont (FreeStyle [place] 3 [place]) #1 ea 02/01/25 nitroglycerin 0.4 mg sublingual tablet (Nitrostat) 0.4 mg sublingual Q5-15M PRN chest pain #25 tabs 02/15/25 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 sensor (FreeStyle Dwight 3 Plus Sensor device) #3 ea 03/12/25 lactulose 10 gram/15 mL oral solution 20 g PO DAILY PRN constipation 03/19/25 budesonide-formoterol HFA 160 mcg-4.5 mcg/actuation aerosol inhaler (Symbicort) 2 puff inhalation BID copd #3 ea 03/23/25 mecobalamin (vitamin B12) 1,000 mcg chewable tablet (B12 Active) 1,000 mcg PO QDAY 04/05/25 ropinirole 1 mg tablet See Rx Instructions PO QHS PRN restless leg 04/05/25 carvedilol 6.25 mg tablet 6.25 mg PO BID #180 tabs 04/08/25 furosemide 40 mg tablet 40 mg PO .COMPLEX #270 tabs 04/27/25 gabapentin 100 mg capsule 100 mg PO QDAY 04/27/25 montelukast 10 mg tablet 10 mg PO QHS Respiratory #90 tabs 05/21/25 hydralazine 100 mg tablet 100 mg PO BID hypertension #180 tabs 05/24/25 magnesium oxide 500 mg capsule 500 mg PO QDAY 05/31/25 pantoprazole 40 mg tablet,delayed release 40 mg PO DAILY reflux #90 tabs 06/11/25 pen needle, diabetic 31 gauge x 1/4 (Unifine Pentips) #100 ea 06/21/25 empagliflozin 10 mg tablet (Jardiance) 10 mg PO DAILY #90 tabs 06/28/25 ferrous sulfate 325 mg (65 mg iron) tablet (FeroSul) 325 mg PO DAILY low iron #30 tabs 06/28/25 atorvastatin 40 mg tablet 40 mg PO QODAY cholesterol #60 tabs 07/13/25 potassium chloride 20 mEq tablet,extended release(part/cryst) 20 meq PO BID supplement #60 tabs 07/13/25 cefdinir 300 mg capsule 300 mg PO BID 5 days #10 caps 07/17/25 dextromethorphan-guaifenesin ER 60 mg-1,200 mg tab,extend release,12hr 1 tab PO BID 7 days #14 tabs 07/17/25 insulin aspart U-100 100 unit/mL subcutaneous cartridge (Novolog PenFill U-100 Insulin aspart) 13 unit (0.13 mL) subcut TID PRN diabetes #15 mL 07/17/25 insulin glargine 100 unit/mL (3 mL) subcutaneous pen (Lantus Solostar U-100 Insulin) 25 unit (0.25 mL) subcut DAILY diabetes #15 mL 07/17/25 prednisone 20 mg tablet 40 mg (2 x 20 mg) PO BREAKFAST 4 days #8 tabs 07/17/25 Hospital Course Summary of Care Provided Hospital Course: Clinical Impression(s) from Imaging Studies Chest X-Ray 07/15/25 04:45 IMPRESSION: Increased bilateral basilar atelectatic changes/infiltrates. [facility] 07/15/25 05:14 IMPRESSION: 1. Severe emphysema. 2. New mucoid impaction, subsegmental atelectasis and small airways process in the left lower lobe. Concomitant infection including atypical organisms such as MARK/MAC and fungal infection like coccidioidomycosis are in the differential. 3. No change in the scarring and local volume loss involving the lingula. 4. Cardiac enlargement. Advanced atherosclerosis. Reading Location: [facility] Microbiology Past 72 Hours 07/15/25 05:43 Urine, Catheterized Urine Culture - Final Escherichia coli 07/16/25 07:30 Sputum, Expectorated/Coughed Gram Stain - Final 07/15/25 16:25 Nasal Secretion MRSA (PCR) - Final 07/15/25 05:43 Urine, Random Legionella Antigen - Final 07/15/25 05:43 Urine, Random Streptococcus pneumoniae Antigen (M - Final 07/15/25 08:55 Mucosa - Nasopharyngeal Respiratory Panel (PCR) - Final 07/15/25 04:33 Mucosa - Nose SARS-CoV-2, Influenza & RSV (PCR) - Final Laboratory Results 07/16/25 13:27: POC Glucose 206 H 07/16/25 16:49: POC Glucose 233 H 07/16/25 21:30: POC Glucose 184 H 07/17/25 06:08: WBC 16.2 H, RBC 3.64 L, Hgb 11.6 L, Hct 34.0 L, MCV 93.4, MCH 31.9, MCHC 34.1, RDW Std Deviation 46.7 H, RDW Coeff of Justin 13.6, Plt Count 267, MPV 10.0, Immature Gran % (Auto) 0.700, Neut % (Auto) 91.5 H, Lymph % (Auto) 3.0 L, Wood % (Auto) 4.7, Eos % (Auto) 0.0, Baso % (Auto) 0.1, Absolute Neuts (auto) 14.9 H, Absolute Lymphs (auto) 0.48 L, Nucleated RBC % 0, Sodium 131 L, Potassium 4.2, Chloride 96 L, Carbon Dioxide 21.3, Anion Gap 14, BUN 75 H, C reatinine 2.32 H, Estim Creat Clear Calc 22.23 L, Est GFR (MDRD) Non-Af 26 L, B UN/Creatinine Ratio 32.3 H, Glucose 287 H, Calcium 9.4 07/17/25 06:28: POC Glucose 271 H 07/17/25 09:35: POC Glucose 148 H Physical Exam Narrative Seen and examined Shortness of breath much better. Patient able to bring up phlegm. Did not had chest pain pressure or tightness. Physical exam General: Alert, Oriented x3, Cooperative. BMI 32.8 kg/m? HEENT: Atraumatic, PERRLA, EOMI, Normocephalic. Oral: No Gingival or Mucosal Lesions/ Ulcerations Neck: Supple, No JVD, Negative Carotid Bruits Chest wall/Lungs: Air entry diminished in bilateral lung bases. Lungs clear. No crepitations Cardiovascular: Irregular rate and rhythm, A-fib, systolic murmur. Abdomen: Bowel Sounds Present, Soft, Non Tender, Non-Distended : No dysuria. No renal angle tenderness. No suprapubic tenderness. Extremities: Subtle to minimal pedal edema, Capillary Refill Less than 3 Seconds Skin: No rashes, No breakdown Musculoskeletal: No Tenderness to Palpation of Joints or Extremities Neurological: Cranial nerves II-XII grossly intact, DTR 2+/4. No acute focal neurological deficit. Psych/Mental Status: Normal Affect, Appropriate. Weight / BMI Weight Weight: 190 lb 4.143 oz Body Mass Index (BMI) 31.6 ABG / Lab / Microbiology Data 07/17/25 06:08 07/17/25 06:08 Laboratory: Laboratory Results - last 24 hr 07/16/25 13:27: POC Glucose 206 H 07/16/25 16:49: POC Glucose 233 H 07/16/25 21:30: POC Glucose 184 H 07/17/25 06:08: WBC 16.2 H, RBC 3.64 L, Hgb 11.6 L, Hct 34.0 L, MCV 93.4, MCH 31.9, MCHC 34.1, RDW Std Deviation 46.7 H, RDW Coeff of Justin 13.6, Plt Count 267, MPV 10.0, Immature Gran % (Auto) 0.700, Neut % (Auto) 91.5 H, Lymph % (Auto) 3.0 L, Wood % (Auto) 4.7, Eos % (Auto) 0.0, Baso % (Auto) 0.1, Absolute Neuts (auto) 14.9 H, Absolute Lymphs (auto) 0.48 L, Nucleated RBC % 0, Sodium 131 L, Potassium 4.2, Chloride 96 L, Carbon Dioxide 21.3, Anion Gap 14, BUN 75 H, C reatinine 2.32 H, Estim Creat Clear Calc 22.23 L, Est GFR (MDRD) Non-Af 26 L, B UN/Creatinine Ratio 32.3 H, Glucose 287 H, Calcium 9.4 07/17/25 06:28: POC Glucose 271 H 07/17/25 09:35: POC Glucose 148 H Microbiology: Microbiology 07/15/25 05:43 Urine, Catheterized Urine Culture - Final Escherichia coli 07/16/25 07:30 Sputum, Expectorated/Coughed Gram Stain - Final 07/15/25 16:25 Nasal Secretion MRSA (PCR) - Final 07/15/25 05:43 Urine, Random Legionella Antigen - Final 07/15/25 05:43 Urine, Random Streptococcus pneumoniae Antigen (M - Final 07/15/25 08:55 Mucosa - Nasopharyngeal Respiratory Panel (PCR) - Final 07/15/25 04:33 Mucosa - Nose SARS-CoV-2, Influenza & RSV (PCR) - Final D/C Instructions Weight Bearing Status: Weight bearing as tolerated Call your doctor if you observe: Fever of 101 or Higher, Coldness, Increased Pain, Numbness or Tingling, Change in Color, Inability to urinate, Inability to have a bowel movement, Shortness of breath, Dizziness, Fainting spells, Swelling in the ankles, Chest pain, Prolonged hiccupping, Increased palpitations (irregular heartbeat) and Calf discomfort DC O2, CPAP, BIPAP Needs Home O2 Discharge instructions: No When: IN 2 WEEKS Meaningful Use Info Meaningful Use Meaningful Use Diagnoses (Choose all that apply): None applicable Discharge Plan Admission Admit Date/Time: 07/15/25 07:32 Primary Reason for Your Visit: Left lower lobe pneumonia, mild COPD exacerbation Attending Provider: Fernandez Santana Primary Care Provider: Carolynn Whitman Instructions Additional Instructions / Restrictions: Outpatient speech therapy prescription signed Discharge Orders/Prescriptions Prescriptions: New dextromethorphan-guaifenesin 60-1,200 mg tablet extended release 12 hr 1 tab PO BID 7 Days Qty: 14 0RF prednisone 20 mg Tablet 40 mg PO BREAKFAST 4 Days Qty: 8 0RF cefdinir 300 mg capsule 300 mg PO BID 5 Days Qty: 10 0RF Continued (DME) handicap placcard Qty: 1 0RF Rx Instructions: Lifetime: debility coenzyme Q10 [Co Q-10] 100 mg capsule 100 mg PO DAILY cholecalciferol (vitamin D3) 100 mcg (4,000 unit) tablet 100 mcg PO DAILY (DME) spacer See Rx Instructions .ROUTE .MEDSUPPLY Qty: 1 0RF Rx Instructions: As directed (DME) lancets [facility] See Rx Instructions .Route Qty: 180 1RF Rx Instructions: twice daily tamsulosin 0.4 mg capsule 0.4 mg PO DAILY Patient Comments: PT TAKES SOMETIMES furosemide 40 mg tablet 40 mg PO .COMPLEX Qty: 270 0RF Rx Instructions: 40 mg orally ; 2 tablets every morning, 1 tablet at 4:00 daily; magnesium oxide 500 mg capsule 500 mg PO QDAY (DME) FreeStyle [place] 3 [place] Misc See Rx Instructions .Route Qty: 1 0RF Rx Instructions: As directed (DME) FreeStyle Dwight 3 Plus Sensor Device See Rx Instructions .Route Qty: 3 2RF Rx Instructions: As directed budesonide-formoterol [Symbicort] 160-4.5 mcg/actuation HFA aerosol inhaler 2 puff inhalation BID Qty: 3 3RF Rx Instructions: administer with spacer, rinse mouth after each use lactulose 10 gram/15 mL solution 20 g PO DAILY PRN (Reason: constipation) ropinirole 1 mg tablet See Rx Instructions PO QHS PRN (Reason: restless leg) Rx Instructions: 2-3 orally at bedtime PRN; administer 2-3 tablets, 1-3 hours before bedtime mecobalamin (vitamin B12) [B12 Active] 1,000 mcg tablet,chewable 1,000 mcg PO QDAY gabapentin 100 mg capsule 100 mg PO QDAY Rx Instructions: SPECIAL INSTRUCTIONS CAN USE UP TO 300 PRN (DME) pen needle, diabetic [Unifine Pentips] 31 gauge x 1/4 needle See Rx Instructions .ROUTE .COMPLEX Qty: 100 1RF Dose Instruction: use 3 TO 4 needles daily Rx Instructions: use 3 TO 4 needles daily finasteride 5 mg tablet 5 mg PO DAILY Patient Comments: PT TAKES AT NIGHT ipratropium bromide 21 mcg (0.03 %) spray,non-aerosol 2 spray intranasal BID PRN (Reason: allergy symptoms) Rx Instructions: administer into each nostril ipratropium-albuterol 0.5 mg-3 mg(2.5 mg base)/3 mL solution for nebulization 3 ml inhalation TID Rx Instructions: 3 mL inhaled; (DME) handicap placard See Rx Instructions .ROUTE .MEDSUPPLY Qty: 1 0RF Rx Instructions: Length of time: 5 years Diganosis: Impaired physical mobility Eliquis 2.5 mg tablet 2.5 mg PO BID Qty: 180 4RF (DME) OneTouch Ultra Test Strip See Rx Instructions .Route Qty: 180 1RF Rx Instructions: Check three to four times a day. albuterol sulfate [Ventolin HFA] 90 mcg/actuation HFA aerosol inhaler 2 inh INHALATION Q4H PRN (Reason: shortness of breath or wheezing) Qty: 18 6RF ranolazine 500 mg tablet extended release 12 hr 500 mg PO BID Qty: 180 3RF nitroglycerin [Nitrostat] 0.4 mg tablet, sublingual 0.4 mg SUBLINGUAL Q5-15M PRN (Reason: chest pain) Qty: 25 2RF carvedilol 6.25 mg tablet 6.25 mg PO BID Qty: 180 3RF Rx Instructions: must administer with a meal/food montelukast 10 mg tablet 10 mg PO QHS Qty: 90 3RF hydralazine 100 mg tablet 100 mg PO BID Qty: 180 3RF pantoprazole 40 mg tablet,delayed release (DR/EC) 40 mg PO DAILY Qty: 90 3RF Jardiance 10 mg tablet 10 mg PO DAILY Qty: 90 3RF ferrous sulfate [FeroSul] 325 mg (65 mg iron) tablet 325 mg PO DAILY Qty: 30 2RF Rx Instructions: 1 tablet daily atorvastatin 40 mg tablet 40 mg PO QODAY Qty: 60 3RF Rx Instructions: at bedtime potassium chloride 20 mEq tablet,ER particles/crystals 20 meq PO BID Qty: 60 2RF Changed insulin aspart U-100 [Novolog PenFill U-100 Insulin] 100 unit/mL cartridge 13 unit subcut TID PRN (Reason: diabetes) Qty: 15 0RF Rx Instructions: hold if glucose is under 130 insulin glargine [Lantus Solostar U-100 Insulin] 100 unit/mL (3 mL) insulin pen 25 unit subcut DAILY Qty: 15 0RF Rx Instructions: Hold if glucose less than 130 mg/dl Referrals / Follow Up: Carolynn Whitman MD [Primary Care Provider, Internal Medicine] - Within 1 Week Disposition Disposition (needs filled in before D/C Order can be placed): Home, Self Care Charges/Coding Visit Charges Inpatient E&M: 17924 Disch Hosp >30min
== END 2025-07-17 14:42 | disposition home or self-care (01) | DRG 190 ==
LOC: ED 07:34 → PCU 07:57
PROVIDERS: Admitting Provider Internal Medicine; Emergency Provider Surgery; PCP Internal Medicine; Visit Provider Internal Medicine
DX: J44.1 Chronic obstructive pulmonary disease with (acute) exacerbation (principal); J13 Pneumonia due to Streptococcus pneumoniae; I5A Non-ischemic myocardial injury (non-traumatic); I13.0 Hypertensive heart and chronic kidney disease with heart failure and stage 1 through stage 4 chronic kidney disease, or unspecified chronic kidney disease; I50.32 Chronic diastolic (congestive) heart failure; N18.4 Chronic kidney disease, stage 4 (severe); I48.20 Chronic atrial fibrillation, unspecified; E11.22 Type 2 diabetes mellitus with diabetic chronic kidney disease; E11.40 Type 2 diabetes mellitus with diabetic neuropathy, unspecified; B95.3 Streptococcus pneumoniae as the cause of diseases classified elsewhere; J44.0 Chronic obstructive pulmonary disease with (acute) lower respiratory infection; G25.81 Restless legs syndrome; E78.5 Hyperlipidemia, unspecified; I25.10 Atherosclerotic heart disease of native coronary artery without angina pectoris; E11.51 Type 2 diabetes mellitus with diabetic peripheral angiopathy without gangrene; J43.9 Emphysema, unspecified; Z79.4 Long term (current) use of insulin; G47.33 Obstructive sleep apnea (adult) (pediatric); I25.2 Old myocardial infarction; Z79.51 Long term (current) use of inhaled steroids; Z87.891 Personal history of nicotine dependence; Z95.5 Presence of coronary angioplasty implant and graft; Z79.01 Long term (current) use of anticoagulants; Z79.899 Other long term (current) drug therapy; R79.89 Other specified abnormal findings of blood chemistry
CPT/HCPCS: 36415; 71046; 71250; 80048; 80053; 81001; 82962; 83036; 84484; 85025; 85379; 87070; 87077; 87086; 87088; 87186; 87205; 87449; 87631; 87633; 87641; 92526; 92610; 93005; 94640; 94668; 97116; 97162; 97166; 97530; 97535; 99285; P9612; A4216; J0696

== ENCOUNTER → 2025-08-05 | Outpatient (CLI) | payer MEDICARE, SELFPAY | END | disposition home or self-care (01) | LOC: SL 19:32 | PROVIDERS: PCP Internal Medicine; Referring Provider Nurse Practitioner Family; Visit Provider Nurse Practitioner Family | DX: G47.33 Obstructive sleep apnea (adult) (pediatric) (principal) | CPT/HCPCS: 95811 ==

== ENCOUNTER 2025-08-08 16:50 | Emergency (ER) | payer MEDICARE, SELFPAY ==
[2025-08-08 16:51] VITALS: BP 175/84; PULSE 57; RESP 20; TEMP 36.3; O2SAT 100
[2025-08-08 16:53] VITALS: BMI 33.4
--- NOTE | 2025-08-08 17:24 | RAD_ITS ---
PROCEDURE: RAD/Abdomen Single View
[2025-08-08 17:49] VITALS: BP 184/92; PULSE 105; RESP 17; TEMP 36.6; O2SAT 96
--- NOTE | 2025-08-08 17:49 | ED.VIS.GI ---
HPI HPI - GI History of Present Illness Chief Complaint: Constipation Informant: patient and spouse/S.O. Abdominal Pain/Flank Pain Onset: Days Context: Gradual Onset Timing: Continuous Current Severity: Mild Maximum Severity: Mild Nausea/Vomiting/Emesis GI Symptom: Negative for Nausea or Vomiting Diarrhea/Melena/Hematochezia GI Symptom: Positive for Hematochezia; Negative for Diarrhea or Melena Severity: Mild Associated Symptoms Associated Symptoms: Negative for Dysuria, Frequency, Hematuria or Urgency Narrative Narrative: 89-year-old male history of chronic constipation. History of A-fib on Eliquis. States he has had limited bowel movements the last 4 days. Denies any significant abdominal pain. No nausea vomiting. No fever. No dysuria. Has had a small amount of blood per rectum said after he wipes. Prior similar symptoms: Yes Recent Illness/Hospitalization: Yes [facility] Medical History Pneumonia Trigger thumb, left thumb Left wrist pain Hypoxia Tremor Peripheral edema Chronic systolic (congestive) heart failure Unsteady gait when walking Muscle twitching Neuropathy Leukocytosis Obesity (BMI 30.0-34.9) Diastolic CHF, acute on chronic Atrial fibrillation/flutter Right carotid bruit Stable angina GERD (gastroesophageal reflux disease) Myocardial infarct Complicated urinary tract infection Urinary tract infection Colonic mass Controlled type 2 diabetes mellitus Acute respiratory insufficiency Chronic kidney disease Chronic anemia Bilateral edema of lower extremity Fatigue Pleural effusion (HFpEF) heart failure with preserved ejection fraction Colon polyp Lightheadedness Chronic constipation Obstructive sleep apnea Gastroesophageal reflux disease Allergic rhinitis Hyperlipidemia Urinary retention Wears hearing aid Wears dentures Wears glasses Cancer History of steroid therapy Arthritis Kidney stone Easy bruising Back pain Injury of back History of hiatal hernia Former smoker BiPAP (biphasic positive airway pressure) dependence Hoarseness Chronic cough Leg cramps History of pain when walking History of stress test History of heart attack Recurrent urinary tract infection ALMEIDA (dyspnea on exertion) Chest pain Right leg swelling Patellar bursitis of right knee Asthma-COPD overlap syndrome Abdominal aortic aneurysm (AAA) Peripheral vascular disease of extremity with claudication Rectus sheath hematoma Pre-syncope Essential (primary) hypertension Restless legs syndrome Daytime hypersomnia Somatic dysfunction of pelvic region DDD (degenerative disc disease), lumbar Overweight Seasonal allergies Carotid bruit Atherosclerotic heart disease of [place] coronary artery without angina pectoris Home Medications ?Medication ?Instructions ?Recorded ?Last Taken ?Type handicap placcard #1 ea 09/28/19 Unknown Rx coenzyme Q10 100 mg capsule (Co 100 mg PO DAILY supplement 05/03/20 01/29/25 History Q-10) cholecalciferol (vitamin D3) 100 100 mcg PO DAILY supplement 11/03/20 01/29/25 History mcg (4,000 unit) tablet spacer #1 ea 01/12/21 Unknown Rx lancets #180 ea 07/18/23 Unknown Rx tamsulosin 0.4 mg capsule 0.4 mg PO DAILY prostate 06/01/24 01/22/25 History finasteride 5 mg tablet 5 mg PO DAILY prostate 06/28/24 01/28/25 History handicap placard #1 ea 10/12/24 Unknown Rx apixaban 2.5 mg tablet (Eliquis) 2.5 mg PO BID atrial fibrillation 12/14/24 02/19/25 Rx #180 tabs ipratropium bromide 21 mcg (0.03 2 spray intranasal BID PRN allergy 12/14/24 Unknown History %) nasal spray symptoms blood sugar diagnostic (OneTouch #180 ea 12/21/24 Unknown Rx Ultra Test strips) albuterol sulfate 90 mcg/actuation 2 inh inhalation Q4H PRN shortness 01/04/25 01/28/25 Rx aerosol inhaler (Ventolin HFA) of breath or wheezing #18 grams ipratropium 0.5 mg-albuterol 3 mg 3 ml inhalation TID SOB &/OR 01/29/25 01/28/25 History (2.5 mg base)/3 mL nebulization 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,nylon mender,cont #1 ea 02/01/25 Unknown Rx (FreeStyle [place] 3 [place]) lactulose 10 gram/15 mL oral 20 g PO DAILY PRN constipation 03/19/25 Unknown History solution budesonide-formoterol HFA 160 2 puff inhalation BID copd #3 ea 03/23/25 Unknown Rx mcg-4.5 mcg/actuation aerosol inhaler (Symbicort) mecobalamin (vitamin B12) 1,000 1,000 mcg PO QDAY 04/05/25 Unknown History mcg chewable tablet (B12 Active) ropinirole 1 mg tablet See Rx Instructions PO QHS PRN 04/05/25 Unknown History restless leg carvedilol 6.25 mg tablet 6.25 mg PO BID #180 tabs 04/08/25 Unknown Rx gabapentin 100 mg capsule 100 mg PO QDAY 04/27/25 Unknown History montelukast 10 mg tablet 10 mg PO QHS Respiratory #90 tabs 05/21/25 Unknown Rx magnesium oxide 500 mg capsule 500 mg PO QDAY 05/31/25 Unknown History pantoprazole 40 mg tablet,delayed 40 mg PO DAILY reflux #90 tabs 06/11/25 Unknown Rx release pen needle, diabetic 31 gauge x #100 ea 06/21/25 Unknown Rx 1/4 (Unifine Pentips) empagliflozin 10 mg tablet 10 mg PO DAILY #90 tabs 06/28/25 Unknown Rx (Jardiance) ferrous sulfate 325 mg (65 mg 325 mg PO DAILY low iron #30 tabs 06/28/25 Unknown Rx iron) tablet (FeroSul) atorvastatin 40 mg tablet 40 mg PO QODAY cholesterol #60 tabs 07/13/25 Unknown Rx potassium chloride 20 mEq 20 meq PO BID supplement #60 tabs 07/13/25 Unknown Rx tablet,extended release(part/cryst) dextromethorphan-guaifenesin ER 60 1 tab PO BID 7 days #14 tabs 07/17/25 Unknown Rx mg-1,200 mg tab,extend release,12hr insulin aspart U-100 100 unit/mL 13 unit (0.13 mL) subcut TID PRN 07/17/25 Unknown Rx subcutaneous cartridge (Novolog diabetes #15 mL PenFill U-100 Insulin aspart) insulin glargine 100 unit/mL (3 25 unit (0.25 mL) subcut DAILY 07/17/25 Unknown Rx mL) subcutaneous pen (Lantus diabetes #15 mL Solostar U-100 Insulin) nitroglycerin 0.4 mg sublingual 0.4 mg sublingual Q5-15M PRN chest 07/28/25 Unknown Rx tablet (Nitrostat) pain #25 tabs 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 sensor (FreeStyle #3 ea 08/02/25 Unknown Rx Dwight 3 Plus Sensor device) furosemide 40 mg tablet 40 mg PO BID 90 days #180 tabs 08/04/25 Unknown Rx hydralazine 100 mg tablet 50 mg PO BID hypertension 08/04/25 Unknown History ranolazine 1,000 mg 1,000 mg PO BID chest pain 90 days 08/04/25 Unknown Rx tablet,extended release,12 hr #180 tabs Allergy/AdvReac Type Severity Reaction Status Date / Time cilostazol (From Pletal) Allergy Unknown Verified 08/08/25 16:51 felodipine Allergy Hives Verified 08/08/25 16:51 levofloxacin Allergy Hives Verified 08/08/25 16:51 Sulfa (Sulfonamide Allergy Unknown Verified 08/08/25 16:51 Antibiotics) isosorbide AdvReac Intermediate low BP Verified 08/08/25 16:51 Family History Father Diabetes Cancer Prostate cancer Mother Dementia Brother Parkinsons Brother Cancer H/O vascular surgery Surgical History History of appendectomy History of surgical procedure H/O vascular surgery History of surgical procedure History of transurethral resection of prostate History of endarterectomy (07/2018) History of left heart catheterization (03/2014) History of coronary artery stent placement (02/17/08) History of vascular surgery (08/2018) History of hernia repair H/O aortic aneurysm repair (11/1998) Social History household members: spouse 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 status: 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 Constitutional Constitutional ED: Denies chills or fever(s) ENT ENT ED: Denies ear pain Cardiovascular Cardiovascular: Denies chest pain Respiratory/Chest Respiratory/Chest: Denies cough or dyspnea Gastrointestinal Gastrointestinal: Reports constipation and other Details: Small bright red blood with wiping. ; Denies abdominal pain, diarrhea, melena, nausea or vomiting Genitourinary Genitourinary ED: Denies dysuria or hematuria Musculoskeletal Musculoskeletal: Denies arthralgias Integumentary Denies abscess Neurologic Neurologic: Denies headache(s) Psychiatric Psychiatric: Denies anxiety Endocrine Endocrinology: Denies polydipsia Hematologic/Lymphatic Hematologic/Lymphatic: Reports easy bleeding, easy bruising and other Details: On Eliquis. ; Denies lymphadenopathy Allergic/Immunologic Allergic/Immunologic ED: Denies mouth swelling, tongue swelling or urticaria EXAM Physical Exam Narrative Exam Narrative: Well-appearing 89year-old male sitting upright in bed. at bedside. Vital signs are stable afebrile. No acute distress. H EENT exam pupils round react light. Moist mucous membranes. Neck nontender no JVD. No lymphadenopathy. Lungs Lear to auscultation bilaterally. Heart rate about 60 no murmur. Chest wall ribs nontender. Abdomen soft, nontender, nondistended normal bowel sounds without peritoneal signs. No abdominal tenderness. No obstruction. Anal exam no gross blood currently no external hemorrhoids. Moving all 4 extremities. Trace edema in the lower extremities which is chronic. Normal strength. Neurologically is awake alert. Answering questions following commands. Back nontender. Const Vital Signs: 08/08/25 16:51 Temperature 97.4 F L Temperature Source Temporal Pulse Rate 57 L Respiratory Rate 20 H Blood Pressure 175/84 H Blood Pressure Mean 114 Pulse Ox 100 Oxygen Delivery Method Room Air MDM MDM MDM Narrative Medical decision making narrative: 89-year-old male history of chronic constipation. Limited bowel movements last several days. Small amount of blood post wiping. No melena. No hematemesis. No nausea or vomiting. KUB was obtained shows stool throughout the colon. Be placed on GoLytely. He is comfortable being discharged home with that plan. History & Record Review Discussion w/independent historian: Patient Additional record(s) reviewed:: Prior ED visit and Prior labs Discharge Plan Triage Chief Complaint: Constipation ED Provider: Dinesh Comer Dx/Rx/DC Orders Clinical Impression: Constipation in male, Atherosclerotic heart disease of [place] coronary artery without angina pectoris, Chronic anticoagulation Instructions: ED Constipation (Adult) Prescriptions: No Action (DME) handicap placcard Qty: 1 0RF Rx Instructions: Lifetime: debility coenzyme Q10 [Co Q-10] 100 mg capsule 100 mg PO DAILY cholecalciferol (vitamin D3) 100 mcg (4,000 unit) tablet 100 mcg PO DAILY (DME) spacer See Rx Instructions .ROUTE .MEDSUPPLY Qty: 1 0RF Rx Instructions: As directed (DME) lancets Misc See Rx Instructions .Route Qty: 180 1RF Rx Instructions: twice daily tamsulosin 0.4 mg capsule 0.4 mg PO DAILY Patient Comments: PT TAKES SOMETIMES magnesium oxide 500 mg capsule 500 mg PO QDAY (DME) FreeStyle [place] 3 [place] Misc See Rx Instructions .Route Qty: 1 0RF Rx Instructions: As directed budesonide-formoterol [Symbicort] 160-4.5 mcg/actuation HFA aerosol inhaler 2 puff inhalation BID Qty: 3 3RF Rx Instructions: administer with spacer, rinse mouth after each use lactulose 10 gram/15 mL solution 20 g PO DAILY PRN (Reason: constipation) ropinirole 1 mg tablet See Rx Instructions PO QHS PRN (Reason: restless leg) Rx Instructions: 2-3 orally at bedtime PRN; administer 2-3 tablets, 1-3 hours before bedtime mecobalamin (vitamin B12) [B12 Active] 1,000 mcg tablet,chewable 1,000 mcg PO QDAY gabapentin 100 mg capsule 100 mg PO QDAY Rx Instructions: SPECIAL INSTRUCTIONS CAN USE UP TO 300 PRN (DME) pen needle, diabetic [Unifine Pentips] 31 gauge x 1/4 needle See Rx Instructions .ROUTE .COMPLEX Qty: 100 1RF Dose Instruction: use 3 TO 4 needles daily Rx Instructions: use 3 TO 4 needles daily hydralazine 100 mg tablet 50 mg PO BID finasteride 5 mg tablet 5 mg PO DAILY Patient Comments: PT TAKES AT NIGHT ipratropium bromide 21 mcg (0.03 %) spray,non-aerosol 2 spray intranasal BID PRN (Reason: allergy symptoms) Rx Instructions: administer into each nostril ipratropium-albuterol 0.5 mg-3 mg(2.5 mg base)/3 mL solution for nebulization 3 ml inhalation TID Rx Instructions: 3 mL inhaled; dextromethorphan-guaifenesin 60-1,200 mg tablet extended release 12 hr 1 tab PO BID 7 Days Qty: 14 0RF insulin aspart U-100 [Novolog PenFill U-100 Insulin] 100 unit/mL cartridge 13 unit subcut TID PRN (Reason: diabetes) Qty: 15 0RF Rx Instructions: hold if glucose is under 130 insulin glargine [Lantus Solostar U-100 Insulin] 100 unit/mL (3 mL) insulin pen 25 unit subcut DAILY Qty: 15 0RF Rx Instructions: Hold if glucose less than 130 mg/dl (DME) handicap placard See Rx Instructions .ROUTE .MEDSUPPLY Qty: 1 0RF Rx Instructions: Length of time: 5 years Diganosis: Impaired physical mobility Eliquis 2.5 mg tablet 2.5 mg PO BID Qty: 180 4RF (DME) OneTouch Ultra Test Strip See Rx Instructions .Route Qty: 180 1RF Rx Instructions: Check three to four times a day. albuterol sulfate [Ventolin HFA] 90 mcg/actuation HFA aerosol inhaler 2 inh INHALATION Q4H PRN (Reason: shortness of breath or wheezing) Qty: 18 6RF carvedilol 6.25 mg tablet 6.25 mg PO BID Qty: 180 3RF Rx Instructions: must administer with a meal/food montelukast 10 mg tablet 10 mg PO QHS Qty: 90 3RF pantoprazole 40 mg tablet,delayed release (DR/EC) 40 mg PO DAILY Qty: 90 3RF Jardiance 10 mg tablet 10 mg PO DAILY Qty: 90 3RF ferrous sulfate [FeroSul] 325 mg (65 mg iron) tablet 325 mg PO DAILY Qty: 30 2RF Rx Instructions: 1 tablet daily atorvastatin 40 mg tablet 40 mg PO QODAY Qty: 60 3RF Rx Instructions: at bedtime potassium chloride 20 mEq tablet,ER particles/crystals 20 meq PO BID Qty: 60 2RF nitroglycerin [Nitrostat] 0.4 mg tablet, sublingual 0.4 mg SUBLINGUAL Q5-15M PRN (Reason: chest pain) Qty: 25 2RF (DME) FreeStyle Dwight 3 Plus Sensor Device See Rx Instructions .Route Qty: 3 2RF Rx Instructions: As directed furosemide 40 mg tablet 40 mg PO BID 90 Days Qty: 180 3RF ranolazine 1,000 mg tablet extended release 12 hr 1,000 mg PO BID 90 Days Qty: 180 3RF Primary Care Provider: Carolynn Whitman Referrals: Carolynn Whitman MD [Primary Care Provider, Internal Medicine] - 1-2 Days if not improving Activity Restrictions/Additional Instructions: Drink a 10 ounce glass the GoLytely every 30 minutes to you have a bowel movement. Follow-up with your doctor if not improving or return. Print Language: Kazakh Disposition Disposition: Home, Self Care
== END 2025-08-08 18:22 | disposition home or self-care (01) ==
LOC: ED 17:51
PROVIDERS: Emergency Provider Emergency Medicine; PCP Internal Medicine; Visit Provider Emergency Medicine
DX: K59.00 Constipation, unspecified (principal); I50.32 Chronic diastolic (congestive) heart failure; I13.0 Hypertensive heart and chronic kidney disease with heart failure and stage 1 through stage 4 chronic kidney disease, or unspecified chronic kidney disease; J44.9 Chronic obstructive pulmonary disease, unspecified; E11.40 Type 2 diabetes mellitus with diabetic neuropathy, unspecified; E11.22 Type 2 diabetes mellitus with diabetic chronic kidney disease; Z79.4 Long term (current) use of insulin; I25.10 Atherosclerotic heart disease of native coronary artery without angina pectoris; R10.9 Unspecified abdominal pain; Z79.01 Long term (current) use of anticoagulants; R19.7 Diarrhea, unspecified; N18.9 Chronic kidney disease, unspecified; E78.5 Hyperlipidemia, unspecified; Z79.899 Other long term (current) drug therapy
CPT/HCPCS: 74018; 99284

== ENCOUNTER 2025-08-14 19:09 | Emergency (ER) | payer MEDICARE, SELFPAY ==
[2025-08-14 19:10] VITALS: BP 154/76; PULSE 56; RESP 18; TEMP 36.6; O2SAT 93; BMI 32.4
[2025-08-14 21:10] VITALS: BP 150/73; PULSE 60; RESP 16; O2SAT 95
[2025-08-14] MEDS: Lidocaine 2% /Epi 1:100 (20ml) 20 ML VIAL INFILT (21:52)
[2025-08-14 22:42] VITALS: BP 151/78; PULSE 61; RESP 16; O2SAT 95
--- NOTE | 2025-08-14 22:58 | EX.ED.DYSGE1 ---
HPI History of Present Illness Chief Complaint: Wound Check Informant: patient and spouse/S.O. Narrative Narrative: Patient is an 89-year-old male with past medical history of hypertension hyperlipidemia chronic atrial fibrillation currently on Eliquis and CHF. He and his states that he had a procedure done at the dermatology's office on . They state that the next day they noticed the wound was bleeding and went back to the office. They were informed that they will suture came undone and the wound dehisced. Reportedly they did not want to perform any intervention at that time. However because of his Eliquis he is continued to bleed from the wound and with concern he will need some type of closure because of the persistent bleeding he was brought back in for evaluation. [facility] Medical History Pneumonia Trigger thumb, left thumb Left wrist pain Hypoxia Tremor Peripheral edema Chronic systolic (congestive) heart failure Unsteady gait when walking Muscle twitching Neuropathy Leukocytosis Obesity (BMI 30.0-34.9) Diastolic CHF, acute on chronic Atrial fibrillation/flutter Right carotid bruit Stable angina GERD (gastroesophageal reflux disease) Myocardial infarct Complicated urinary tract infection Urinary tract infection Colonic mass Controlled type 2 diabetes mellitus Acute respiratory insufficiency Chronic kidney disease Chronic anemia Bilateral edema of lower extremity Fatigue Pleural effusion (HFpEF) heart failure with preserved ejection fraction Colon polyp Lightheadedness Chronic constipation Obstructive sleep apnea Gastroesophageal reflux disease Allergic rhinitis Hyperlipidemia Urinary retention Wears hearing aid Wears dentures Wears glasses Cancer History of steroid therapy Arthritis Kidney stone Easy bruising Back pain Injury of back History of hiatal hernia Former smoker BiPAP (biphasic positive airway pressure) dependence Hoarseness Chronic cough Leg cramps History of pain when walking History of stress test History of heart attack Recurrent urinary tract infection ALMEIDA (dyspnea on exertion) Chest pain Right leg swelling Patellar bursitis of right knee Asthma-COPD overlap syndrome Abdominal aortic aneurysm (AAA) Peripheral vascular disease of extremity with claudication Rectus sheath hematoma Pre-syncope Essential (primary) hypertension Restless legs syndrome Daytime hypersomnia Somatic dysfunction of pelvic region DDD (degenerative disc disease), lumbar Overweight Seasonal allergies Carotid bruit Atherosclerotic heart disease of [place] coronary artery without angina pectoris Home Medications Medication Instructions Recorded Last Taken Type handicap placcard #1 ea 09/28/19 Unknown Rx coenzyme Q10 100 mg capsule (Co 100 mg PO DAILY supplement 05/03/20 01/29/25 History Q-10) cholecalciferol (vitamin D3) 100 100 mcg PO DAILY supplement 11/03/20 01/29/25 History mcg (4,000 unit) tablet spacer #1 ea 01/12/21 Unknown Rx lancets #180 ea 07/18/23 Unknown Rx tamsulosin 0.4 mg capsule 0.4 mg PO DAILY prostate 06/01/24 01/22/25 History finasteride 5 mg tablet 5 mg PO DAILY prostate 06/28/24 01/28/25 History handicap placard #1 ea 10/12/24 Unknown Rx apixaban 2.5 mg tablet (Eliquis) 2.5 mg PO BID atrial fibrillation 12/14/24 02/19/25 Rx #180 tabs ipratropium bromide 21 mcg (0.03 2 spray intranasal BID PRN allergy 12/14/24 Unknown History %) nasal spray symptoms blood sugar diagnostic (OneTouch #180 ea 12/21/24 Unknown Rx Ultra Test strips) albuterol sulfate 90 mcg/actuation 2 inh inhalation Q4H PRN shortness 01/04/25 01/28/25 Rx aerosol inhaler (Ventolin HFA) of breath or wheezing #18 grams ipratropium 0.5 mg-albuterol 3 mg 3 ml inhalation TID SOB &/OR 01/29/25 01/28/25 History (2.5 mg base)/3 mL nebulization 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,forensic engineer,cont #1 ea 02/01/25 Unknown Rx (FreeStyle Dwight 3 [place]) lactulose 10 gram/15 mL oral 20 g PO DAILY PRN constipation 03/19/25 Unknown History solution budesonide-formoterol HFA 160 2 puff inhalation BID copd #3 ea 03/23/25 Unknown Rx mcg-4.5 mcg/actuation aerosol inhaler (Symbicort) mecobalamin (vitamin B12) 1,000 1,000 mcg PO QDAY 04/05/25 Unknown History mcg chewable tablet (B12 Active) ropinirole 1 mg tablet See Rx Instructions PO QHS PRN 04/05/25 Unknown History restless leg carvedilol 6.25 mg tablet 6.25 mg PO BID #180 tabs 04/08/25 Unknown Rx gabapentin 100 mg capsule 100 mg PO QDAY 04/27/25 Unknown History montelukast 10 mg tablet 10 mg PO QHS Respiratory #90 tabs 05/21/25 Unknown Rx magnesium oxide 500 mg capsule 500 mg PO QDAY 05/31/25 Unknown History pantoprazole 40 mg tablet,delayed 40 mg PO DAILY reflux #90 tabs 06/11/25 Unknown Rx release pen needle, diabetic 31 gauge x #100 ea 06/21/25 Unknown Rx 1/4" (Unifine Pentips) empagliflozin 10 mg tablet 10 mg PO DAILY #90 tabs 06/28/25 Unknown Rx (Jardiance) ferrous sulfate 325 mg (65 mg 325 mg PO DAILY low iron #30 tabs 06/28/25 Unknown Rx iron) tablet (FeroSul) atorvastatin 40 mg tablet 40 mg PO QODAY cholesterol #60 tabs 07/13/25 Unknown Rx potassium chloride 20 mEq 20 meq PO BID supplement #60 tabs 07/13/25 Unknown Rx tablet,extended release(part/cryst) dextromethorphan-guaifenesin ER 60 1 tab PO BID 7 days #14 tabs 07/17/25 Unknown Rx mg-1,200 mg tab,extend release,12hr insulin aspart U-100 100 unit/mL 13 unit (0.13 mL) subcut TID PRN 07/17/25 Unknown Rx subcutaneous cartridge (Novolog diabetes #15 mL PenFill U-100 Insulin aspart) insulin glargine 100 unit/mL (3 25 unit (0.25 mL) subcut DAILY 07/17/25 Unknown Rx mL) subcutaneous pen (Lantus diabetes #15 mL Solostar U-100 Insulin) nitroglycerin 0.4 mg sublingual 0.4 mg sublingual Q5-15M PRN chest 07/28/25 Unknown Rx tablet (Nitrostat) pain #25 tabs 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 sensor (FreeStyle #3 ea 08/02/25 Unknown Rx Dwight 3 Plus Sensor device) furosemide 40 mg tablet 40 mg PO BID 90 days #180 tabs 08/04/25 Unknown Rx hydralazine 100 mg tablet 50 mg PO BID hypertension 08/04/25 Unknown History ranolazine 1,000 mg 1,000 mg PO BID chest pain 90 days 08/04/25 Unknown Rx tablet,extended release,12 hr #180 tabs Allergy/AdvReac Type Severity Reaction Status Date / Time cilostazol (From Pletal) Allergy Unknown Verified 08/14/25 19:10 felodipine Allergy Hives Verified 08/14/25 19:10 levofloxacin Allergy Hives Verified 08/14/25 19:10 Sulfa (Sulfonamide Allergy Unknown Verified 08/14/25 19:10 Antibiotics) isosorbide AdvReac Intermediate low BP Verified 08/14/25 19:10 Family History Father Diabetes Cancer Prostate cancer Mother Dementia Brother Parkinsons Brother Cancer H/O vascular surgery Surgical History History of appendectomy History of surgical procedure H/O vascular surgery History of surgical procedure History of transurethral resection of prostate History of endarterectomy (07/2018) History of left heart catheterization (03/2014) History of coronary artery stent placement (02/17/08) History of vascular surgery (08/2018) History of hernia repair H/O aortic aneurysm repair (11/1998) Social History household members: spouse 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 status: 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 Smoking Status: Former smoker quit date: 08/07/08 pack-years: 2 Tobacco: How many years used: 52 Electronic Cigarette Use: not used how long ago did patient quit smokin years ago alcohol intake: current alcohol intake frequency: holidays/special occasions only details: hx of alcohol abuse substance use type: does not use caffeine: No what type of physical activity do you participate in: other details: Nustep frequency: 5-6 times per week duration: 15-30 minutes/day seatbelt use: always do you feel safe at home: Yes ROS ROS ED Constitutional Constitutional ED: Denies chills or fever(s) Cardiovascular Cardiovascular: Denies chest pain Respiratory/Chest Respiratory/Chest: Denies cough or dyspnea Gastrointestinal Gastrointestinal: Denies abdominal pain, diarrhea, nausea or vomiting Musculoskeletal Musculoskeletal: Denies myalgias Integumentary Reports other Details: Bleeding wound left forearm Neurologic Neurologic: Denies headache(s) Hematologic/Lymphatic Hematologic/Lymphatic: Reports easy bleeding and easy bruising EXAM Physical Exam Const Vital Signs: 08/14/25 23:07 Temperature 98.1 F Pulse Rate 60 Respiratory Rate 16 Blood Pressure 168/91 H Blood Pressure Mean 116 Pulse Ox 97 Positive well nourished and well developed General Appearance ED: well developed HEENT HEENT Narrative: Normocephalic atraumatic Eyes PERRL and EOMs intact bilaterally Neck supple and no JVD Resp normal respiratory effort and clear to auscultation bilaterally Cardio regular rate Rate: other Other Details: Irregularly irregular rhythm with regular rate consistent with chronic atrial fibrillation Extremity Extremity Narrative: Left upper extremity is neurovascularly intact. Patient has a linear surgical wound along the dorsal aspect of the middle third of the forearm. The suture has and the wound has dehisced. The wound is approximately 3 cm in length. There is persistent venous bleeding noted. No surrounding soft tissue changes to suggest infection Remainder of the exam is normal Neuro oriented x3 and CN's II-XII intact bilaterally Sensorium / Orientation: alert Psych mental status grossly normal Skin Skin Narrative: Wound dehiscence of the left forearm as documented above without secondary findings of infection MDM MDM MDM Narrative Medical decision making narrative: Patient arrived to the ER hypertensive but has a past medical history of this. Otherwise vitals were stable. At this time I have low concern for acute blood loss anemia and feel no need to check a hemoglobin and hematocrit. Okay the bleeding is venous and is occurring from the wound dehiscence and I do not feel the need to provide TXA or other anticlotting medication based on his history of Eliquis use. There is no surrounding soft tissue changes to suggest cellulitis or abscess so I feel no need to check laboratory studies either for infection. The patient has Surgicel and a pressure bandage placed across the wound. It was left in place for approximately 1 hour. On reevaluation there is still mild persistent bleeding and therefore I feel the wound will need sutured in order to prevent reoccurrence of bleeding. This was performed as documented below. As there is no further bleeding noted after suturing the wound dehiscence patient is otherwise safe for discharge Patient had the left forearm wound cleaned with chlorhexidine. It was then anesthetized using 6 mL of 2% lidocaine with epinephrine and local fashion. Then six 5-0 Vicryl sutures were placed in simple interrupted fashion. This brought the dehisced wound edges together well with close approximation. There was no further bleeding noted. Patient tolerated procedure well without complication. History & Record Review Discussion w/independent historian: Patient and Significant other Discharge Plan Triage Chief Complaint: Wound Check ED Provider: Ba Callaway Dx/Rx/DC Orders Clinical Impression: Dehiscence of operative wound, Chronic atrial fibrillation, Current use of longterm anticoagulation, Congestive heart failure, Hypertension, HLD (hyperlipidemia) Instructions: Wound Dehiscence, ED Laceration, All Closures Prescriptions: No Action (DME) handicap placcard Qty: 1 0RF Rx Instructions: Lifetime: debility coenzyme Q10 [Co Q-10] 100 mg capsule 100 mg PO DAILY cholecalciferol (vitamin D3) 100 mcg (4,000 unit) tablet 100 mcg PO DAILY (DME) spacer See Rx Instructions .ROUTE .MEDSUPPLY Qty: 1 0RF Rx Instructions: As directed (DME) lancets Misc See Rx Instructions .Route Qty: 180 1RF Rx Instructions: twice daily tamsulosin 0.4 mg capsule 0.4 mg PO DAILY Patient Comments: PT TAKES SOMETIMES magnesium oxide 500 mg capsule 500 mg PO QDAY (DME) FreeStyle Dw[place] 3 [place] Misc See Rx Instructions .Route Qty: 1 0RF Rx Instructions: As directed budesonide-formoterol [Symbicort] 160-4.5 mcg/actuation HFA aerosol inhaler 2 puff inhalation BID Qty: 3 3RF Rx Instructions: administer with spacer, rinse mouth after each use lactulose 10 gram/15 mL solution 20 g PO DAILY PRN (Reason: constipation) ropinirole 1 mg tablet See Rx Instructions PO QHS PRN (Reason: restless leg) Rx Instructions: 2-3 orally at bedtime PRN; administer 2-3 tablets, 1-3 hours before bedtime mecobalamin (vitamin B12) [B12 Active] 1,000 mcg tablet,chewable 1,000 mcg PO QDAY gabapentin 100 mg capsule 100 mg PO QDAY Rx Instructions: SPECIAL INSTRUCTIONS CAN USE UP TO 300 PRN (DME) pen needle, diabetic [Unifine Pentips] 31 gauge x 1/4" needle See Rx Instructions .ROUTE .COMPLEX Qty: 100 1RF Dose Instruction: use 3 TO 4 needles daily Rx Instructions: use 3 TO 4 needles daily hydralazine 100 mg tablet 50 mg PO BID finasteride 5 mg tablet 5 mg PO DAILY Patient Comments: PT TAKES AT NIGHT ipratropium bromide 21 mcg (0.03 %) spray,non-aerosol 2 spray intranasal BID PRN (Reason: allergy symptoms) Rx Instructions: administer into each nostril ipratropium-albuterol 0.5 mg-3 mg(2.5 mg base)/3 mL solution for nebulization 3 ml inhalation TID Rx Instructions: 3 mL inhaled; dextromethorphan-guaifenesin 60-1,200 mg tablet extended release 12 hr 1 tab PO BID 7 Days Qty: 14 0RF insulin aspart U-100 [Novolog PenFill U-100 Insulin] 100 unit/mL cartridge 13 unit subcut TID PRN (Reason: diabetes) Qty: 15 0RF Rx Instructions: hold if glucose is under 130 insulin glargine [Lantus Solostar U-100 Insulin] 100 unit/mL (3 mL) insulin pen 25 unit subcut DAILY Qty: 15 0RF Rx Instructions: Hold if glucose less than 130 mg/dl (DME) handicap placard See Rx Instructions .ROUTE .MEDSUPPLY Qty: 1 0RF Rx Instructions: Length of time: 5 years Diganosis: Impaired physical mobility Eliquis 2.5 mg tablet 2.5 mg PO BID Qty: 180 4RF (DME) OneTouch Ultra Test Strip See Rx Instructions .Route Qty: 180 1RF Rx Instructions: Check three to four times a day. albuterol sulfate [Ventolin HFA] 90 mcg/actuation HFA aerosol inhaler 2 inh INHALATION Q4H PRN (Reason: shortness of breath or wheezing) Qty: 18 6RF carvedilol 6.25 mg tablet 6.25 mg PO BID Qty: 180 3RF Rx Instructions: must administer with a meal/food montelukast 10 mg tablet 10 mg PO QHS Qty: 90 3RF pantoprazole 40 mg tablet,delayed release (DR/EC) 40 mg PO DAILY Qty: 90 3RF Jardiance 10 mg tablet 10 mg PO DAILY Qty: 90 3RF ferrous sulfate [FeroSul] 325 mg (65 mg iron) tablet 325 mg PO DAILY Qty: 30 2RF Rx Instructions: 1 tablet daily atorvastatin 40 mg tablet 40 mg PO QODAY Qty: 60 3RF Rx Instructions: at bedtime potassium chloride 20 mEq tablet,ER particles/crystals 20 meq PO BID Qty: 60 2RF nitroglycerin [Nitrostat] 0.4 mg tablet, sublingual 0.4 mg SUBLINGUAL Q5-15M PRN (Reason: chest pain) Qty: 25 2RF (DME) FreeStyle Dwight 3 Plus Sensor Device See Rx Instructions .Route Qty: 3 2RF Rx Instructions: As directed furosemide 40 mg tablet 40 mg PO BID 90 Days Qty: 180 3RF ranolazine 1,000 mg tablet extended release 12 hr 1,000 mg PO BID 90 Days Qty: 180 3RF Primary Care Provider: Carolynn Whitman Referrals: Carolynn Whitman MD [Primary Care Provider, Internal Medicine] Activity Restrictions/Additional Instructions: The wound has been reclosed with 6 dissolvable sutures. They should dissolve over the next 1 to 2 weeks. Please still cover the area with a bandage to help pad and protect the wound and prevent infection. Return to the ER should you have any further concerns Print Language: Luxem[place] Disposition Disposition: Home, Self Care Discharge Date/Time: 08/14/25 23:12
[2025-08-14 23:07] VITALS: BP 168/91; PULSE 60; RESP 16; TEMP 36.7; O2SAT 97
== END 2025-08-14 23:12 | disposition home or self-care (01) ==
PROVIDERS: Emergency Provider Emergency Medicine; PCP Internal Medicine; Visit Provider Emergency Medicine
DX: T81.31XA Disruption of external operation (surgical) wound, not elsewhere classified, initial encounter (principal); I13.0 Hypertensive heart and chronic kidney disease with heart failure and stage 1 through stage 4 chronic kidney disease, or unspecified chronic kidney disease; I50.9 Heart failure, unspecified; J44.9 Chronic obstructive pulmonary disease, unspecified; I48.20 Chronic atrial fibrillation, unspecified; E11.40 Type 2 diabetes mellitus with diabetic neuropathy, unspecified; E11.22 Type 2 diabetes mellitus with diabetic chronic kidney disease; I25.10 Atherosclerotic heart disease of native coronary artery without angina pectoris; N18.9 Chronic kidney disease, unspecified; Z79.01 Long term (current) use of anticoagulants; Z87.891 Personal history of nicotine dependence; X58.XXXA Exposure to other specified factors, initial encounter
CPT/HCPCS: 99282

== ENCOUNTER → 2025-08-24 | Outpatient (CLI) | payer MEDICARE, SELFPAY ==
[2025-08-24 12:51] LABS: Hematocrit 44.3 % (40-54); Hemoglobin 14.2 g/dL (13.0-16.5); Immature Granulocytes Count 0.100 X10^3/uL (0.0-0.0); Mean Corp Hgb Conc 32.1 g/dL (32-36); Mean Corpuscular Volume 100.5 fL (80-94); Mean Platelet Vol. 10.5 fl (6.2-12.0); NRBC Flagged by Analyzer 0 % (0-5); Platelet Count 389 K/mm3 (150-450); RBC Distribution Width CV 13.6 % (11.6-14.6); RBC Distribution Width SD 50.6 fl (35.1-43.9); Red Blood Count 4.41 M/mm3 (4.6-6.2); White Blood Count 8.3 K/mm3 (4.4-11.0)
[2025-08-24 13:04] LABS: Creatinine, Urine (random) 73.80 mg/dL (39.00-259.00); Microalbumin,Random Urine 159.0 mg/L (<20 mg/L)
[2025-08-24 13:41] LABS: Iron Binding Capacity,Total 284 ug/dL (250-450)
[2025-08-24 13:50] LABS: AST(SGOT) 24 U/L (<=37); Alanine Aminotransfer ALT/SGPT 16 U/L (<=46); Albumin, Serum 4.1 g/dL (3.4-4.8); Alkaline Phosphatase 75 U/L (40-129); Anion Gap 14 (5-15); BUN 40 mg/dL (4-19); BUN/Creat Ratio 16.7 RATIO (10-20); Calcium,Total 9.7 mg/dL (7.6-11.0); Carbon Dioxide 25.8 mmol/L (21.0-32.0); Chloride 100 mmol/L (98-108); Cholesterol 175 mg/dL (<=200); Globulin 3.1 g/dL (2.2-4.2); Glucose 123 mg/dL (70-99); Iron 82 ug/dL (65-175); Iron Binding Capacity,Unsat 202 ug/dL (228-428); Low Density Lipoprotein Calc. 118 mg/dL; Potassium 4.8 mmol/L (3.3-5.1); Triglycerides 90 mg/dL; Very Low Density Lipoprotein 18 mg/dL (5-40); cholesterol:hdl ratio screen 4.32
[2025-08-24 13:53] LABS: Ferritin 90 ng/mL (37-417); Vitamin B12 > 4000 pg/mL (180-914); Vitamin D,25 Hydroxy 88.1 ng/mL (30-100)
== END | disposition home or self-care (01) ==
LOC: MTLAB 10:38
PROVIDERS: PCP Internal Medicine; Referring Provider Internal Medicine; Visit Provider Internal Medicine
DX: E55.9 Vitamin D deficiency, unspecified (principal); N18.4 Chronic kidney disease, stage 4 (severe); I50.30 Unspecified diastolic (congestive) heart failure; E11.22 Type 2 diabetes mellitus with diabetic chronic kidney disease; Z79.4 Long term (current) use of insulin; D64.9 Anemia, unspecified
CPT/HCPCS: 36415; 80053; 80061; 82043; 82306; 82570; 82607; 82728; 83540; 83550; 85025

== ENCOUNTER → 2025-09-01 | Outpatient (CLI) | payer MEDICARE, SELFPAY | END | disposition home or self-care (01) | PROVIDERS: PCP Internal Medicine; Visit Provider Nurse Practitioner Family | DX: J44.9 Chronic obstructive pulmonary disease, unspecified (principal) | CPT/HCPCS: 87070; 87205 ==

== ENCOUNTER → 2025-09-07 | Outpatient (CLI) | payer MEDICARE, SELFPAY | END | disposition home or self-care (01) | LOC: SL 11:46 | PROVIDERS: PCP Internal Medicine; Referring Provider Nurse Practitioner Family; Visit Provider Nurse Practitioner Family | DX: G47.33 Obstructive sleep apnea (adult) (pediatric) (principal) | CPT/HCPCS: 98960; G0463 ==

== ENCOUNTER 2025-09-21 13:00 | Outpatient (RCR) | payer MEDICARE, SELFPAY ==
--- NOTE | 2025-07-26 12:23 | HP.SP.EVAL ---
Visit History Visit Info Date of Eval: 07/23/25 Today is Visit #: 1 Analyst Sales: RAEANN Iverson Attending Doctor: Reason for Referral: DYSPHAGIA. RX WITH PATIENT Previous speech therapy: Yes Results: Pt had ST swallowing evaluation on 07/15/25 during hospital admission where he was diagnosed with Mild Oropharyngeal Dysphagia R13.12. His diet recommendations were easy to chew solids and thin liquids. Compensatory strategies provided were: small sips, small bites, slow rate, alternate bites/solids and sips/liquids, HOB at 90 degrees, and remain sitting upright for 30 min after PO intake. Other Relevant Medical History/Diagnoses/Surgery: WOODY ROSAS is an 89 year old male presenting to [facility] for a swallowing evaluation d/t coughing and choking. Woody and his , [place], attended the evaluation and both served as historians when obtaining case history. Woody' reported left lower lobe pneumonia dx on 07/15/25 and stated that Pt had pneumonia multiple times this past year. Woody has a history of COPD, asthma, GERD, obstructive sleep apnea, CHF, among several other diagnoses -- See chart for full medical history. Pt's noted tremors/shakes that seem to be correlated when he is starting to acquire pneumonia. The tremors/shakes appear to improve after receiving antibiotics for pneumonia. Pt has seen an ENT in the past and reported it was several years ago. Woody has upper and lower dentures but reported that he does not wear them most of the time even when eating -- he also reports lower dentures do not fit well without glue. Pt cannot eat hard foods without his dentures and is currently on an easy to chew diet. He did wear both upper and lower dentures to the evaluation. Pt reported occasional coughing while eating but mostly d/t excess mucous production. ST observed Pt throat clearing and an occasional hoarse and wet vocal quality while obtaining case history. He noted that the pitch of his voice has changed and throat clearing doesn't help clear the mucous. Woody noted the only time he chokes is when swallowing large pills. The coughing has not gotten better or worse and has been a reoccurring issue for years. Pt stated that he does not have any trouble swallowing and believes the coughing is directly related to his excess mucous and COPD dx. Pt does not drink warm liquids or coffee. He sleeps flat on his back with CPAP machine and stated that his symptoms become worse at night. Pt's expressed concern for Pt occasionally getting sick and vomiting during meals. Pt claimed that getting sick during meals was related to post nasal drip and swallowing excess mucous, not swallowing difficulty. Medications related to this diagnosis: Pt recently started pantoprazole 40 mg tablet, delayed release on 06/11/25 for reflux. See chart for additional 34 medications. Smoking Status: Former smoker Diagnosis Diagnosis: Mild Oropharyngeal Dysphagia Pain Is pain an issue with your current prescribed condition?: No Personal Preferred language: Tanzanian Patient Allergies Allergies Allergies: Allergies cilostazol (From Pletal) Allergy (Verified 07/23/25 13:36) Unknown pt took a long time ago felodipine Allergy (Verified 07/23/25 13:36) Hives levofloxacin Allergy (Verified 07/23/25 13:36) Hives Sulfa (Sulfonamide Antibiotics) Allergy (Verified 07/23/25 13:36) Unknown isosorbide Adverse Reaction (Intermediate, Verified 07/23/25 13:36) low BP Subjective Dysphagia Symptoms Reported Symptoms/Problems with: Coughing, Choking and Difficulty Swallowing Pills Current Diet Solids Current Diet: Soft Current Diet Liquids Current Liquids: Thin [place] free water Protocol: Yes Objective Dysphagia Administered by Administered by: Self Thin Liquids Administred via: Cup Oral Transit: WNL Bolus clearance: fully cleared Gagging: No Cough: throat clear, wet and productive Pharyngeal phase: immediate laryngeal elevation Patient Report: Pt stating he occasionally chokes and coughs on water if he drinks too big of a sip or too fast. Comments: Pt completing Anita 3 oz. water via cup with 3 consistent swallows showing appropriate signs of oral motor control, timely A-P transit, and demonstrated 1x min wet vocal quality. Pt benefitted from 1x cue to throat clear and cough which improved vocal quality. Pureed Administered via: Spoon Oral Preparation: WNL Oral Transit: WNL Bolus clearance: fully cleared Gagging: No Cough: throat clear Pharyngeal phase: immediate laryngeal elevation Patient Report: Pt stating he has no difficulties with purees and was instructed to take his pills with purees. Comments: Pt taking medium sized bite of puree (pudding) and showing appropriate signs of oral motor control of bolus, timely A-P transit, and demonstrated 1x min wet vocal quality. Pt benefitted from 1x cue to throat clear which improved vocal quality. At baseline, Pt also presents with wet vocal quality. Unable to determine if these signs were from pudding trials. Suspected excess mucous at baseline. Soft & Bite sized (Mechanical) Administered via: Spoon Oral Preparation: WNL Oral Transit: WNL Bolus clearance: fully cleared Gagging: No Cough: throat clear Pharyngeal phase: immediate laryngeal elevation Comments: Pt taking medium sized bite of soft & bite sized (diced pears) and showing appropriate signs of oral motor control of bolus, timely A-P transit, and demonstrated 1x min wet vocal quality. ST observing wet voice post swallow which is suspected to be d/t excess mucous. ST cued Pt to throat clear which improved wet vocal quality. Regular Oral Preparation: WNL Oral Transit: WNL Bolus clearance: significant clearance/minimal residue Cough: throat clear Pharyngeal phase: immediate laryngeal elevation Patient Report: Pt reporting that he cannot eat regular textures without his dentures. Comments: Pt taking medium sized bite of regular texture (Jessica Doone) and showing appropriate signs of oral motor control of bolus, timely A-P transit, and demonstrated 1x min wet vocal quality. Excess lingual movement observed post swallow and ST suspecting d/t Pt clearing residue from dentures. ST observing wet voice post swallow which is suspected to be d/t excess mucous. ST cued Pt to throat clear which improved wet vocal quality. Swallowing Impairment Contributing Factors to Swallowing Impairment: Reduced Alertness or Attention Impact Impact on Safety & Functioning: No Limitations Recommendations Modified Barium Swallow/Cookie Swallow Recommended: No Swallowing Treatment: No Diet Texture Recommendations Solids: Easy to Chew (Level 7) Liquids: Thin (Level 0) Other liquids: Thin Other: Pt is functional in selecting appropriate textures. ST recommending warm liquid wash throughout day to help reduce mucous buildup. Safety Saftey Precautions/Swallowing Recommendations (Check all that Apply): Reduce Distractions Other: Intermittent throat clear with swallow to help reduce mucous while eating. Results Swallowing Within Normal Limits: Yes Subjective Oral Motor Subjective Dentures ill fitting: Yes Comments Comments: Bottom dentures ill fitting Objective Oral Motor Oral Status Dentition: Upper Dentures and Lower Dentures Labial Impairment: WNL Observation at Rest: WNL Closure: WNL Pucker: WNL Retraction: WNL Alternating Pucker/Retraction: WNL Involuntary Movement noted: No Lingual Impairment: WNL Protrusion: WNL Retraction: WNL Lateralization: WNL Involuntary Movement: No Jaw Impairment: WNL Opening: WNL Closing: WNL Involuntary Movement: No Respiratory Status Respiratory Status: Room Air Swallowing Performance Scale Swallowing Performance Scale Swallowing Performance Scale Result: 1 Normal Reference: Neuro-QoL instrument Radiation Oncology Patient Plan Plan Plan: Patient is not appropriate for speech services at this time, however, pending results of ENT appointment Pt may need 1x follow-up to review additional strategies. Suspect Pt's current symptoms may be d/t excess mucous with difficulty managing it. It could be possible that Pt is aspirating his mucous which, along with his other diagnoses, may be contributing to his recurrent PNA. Suspect if his is mucous secretions can be managed, this would help reduce his vocal changes and need for throat clearing/coughing. *Evaluation and report was completed by director of student financial services Tanja Ruff and supervised and edited by Saadia Parra MS, CCC-EMBOSSED OR IMPRESSED LETTERING PAINTER* Recommendations Treatment Warranted: No Comment: ST recommending further assessment with ENT d/t excess mucous and suspected post nasal drip. Education Patient Instruction Patient Education: Treatment Plan Person Taught: Patient and Family Teaching Method: Discussion Response to teaching: Verbalize Understanding
--- NOTE | 2025-08-23 14:06 | HP.PTEVAL_ITS ---
Patient's Visit Information Visit Information Visit Information: DESIREE ROSAS is a 89 year old M referred to Physical Therapy by Dr. Fernandez Santana MD with a diagnosis of weakness. Date of Evaluation: 08/23/25 Physical Therapist: RONA WallT, OCS, CSCS Visit Plan Frequency: 2x /Week Duration: 4-6 Weeks Plan: Pt seems to have a weakness and dysfunction in LE after 200 feet of walking that causes legs to give out. Seems to be neurologic at osme point and DD is HAT BAND ATTACHER vs spine/lumbar. he is seeing a neurologist already and having testing. May be appropriate to seee spine doctor as he has a history with LBP. IE HEP: reviewed safety wtih needing walker and preferaboy with seat at all times and needs to find pattern to good days and bad days and find limits of safeety with ambulation and ex as he nearly fell legs giving out last weak upon departing after his 45 min workout. Traat with ensuring movement at home and giving pics of ex he can do standing at his walker at commercials with chair bhind him, also finding limits of walking and listening to body. Also please review his gym workout and ensure LE strngth of legs and hips and kranthi approrpiate and safe for patient and twwak it as necessary with list and pics. Monitor toleerance to his workouts. Subjective Subjective: Wayt sent over for weakness. Pt states he has good days and bad days. Not sure why. Good days, walks well and can walk with wh walker. Longer walks then legs won't listen to him they start to give out adn quads hurt and want to quit. L lknee can hurt at times. . Some days they won't let him go at all. Has h/o back pain and injeections to hips and back and they help, Spine is messed up, not seen a spine doctor. 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 Sees speech th qamarst for talking not right feels like a mouth full of mush. Has heart trouble and has vascular and kidney problems. Dr. Pierre for heart 2 weeks ago and was OK. Ses neurogist for shakes. nO diagnoses for the shakes. Had scan but no results yet. 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 Lung funciton is poor. present today and talking often. Bad days are 3 days per week. Doesn't walk far anymore. says he feels better if he stays active. Other days are mediocre, sitting too much seems to be a problem but walking 250 feet is weak. Short walks are OK. x at Hep Nustep adn bicycle, does kne ext adn curl and back machine. Feels tired whn done. Spends day at home in recliner TV. No exercises at home. Basic ADLs: Dress self, bathroom self, shower seat I. Pain quads.: Pain Intensity (Out of 10): 0 Pain Intensity Range: 0 and 8 Objective Objective: Walks initially with wh walkr up tall and nice steps mod I but as gets close to 250 feet, steps shorten up and hunches over and feels like legs don't do what he wants them to do, short choppy steps , min A and plops into chair faituged. Chair transfers with UE mod I, Stand balance without AD I eo and ec 30 seconds. Stand march is able after rest. Walks without AD 20 feet SBA but feels weaker as he goes and needs to sit suddently. hip strength 3/5 abd, flexion adn ext, knee ext and flexion 3+/5, ankles 4-/5. Able to heel raise and ote raise holding on. HS and quad max tight B at -40 90/90 tst. reflexes 1/3 patella dna chilles B, sensation LE WNL to gross light touch except feet somewhat poorinto toes. reciprocal heel and toe tapping are not bad once rested. FGA not bad but gets poor quick once walks greater than 200 feet today. Balance/Special Test Scores Lower Extremity Functional Score: 20 Goals Goal 1:: Walk 400 feet with wh walker mod I without loss of leg fucntion. Goal Time Frame: 4-6 Weeks Goal 2:: I appropriate gyma dn home ex to fend off sedetairsm adn improve safety. Goal Time Frame: 4-6 Weeks Rehabilitation Potential Physical Therapy Diagnosis: weakness seems neurologic as it get worse quickly and needs to sit. Spine vs HAT BAND ATTACHER? Appropriate for PT to manag activity properly but appropriate to go further with neuro and possibly spine which are already scheeduled at least with neuro. Rehabilitation Potential: Questionable Anticipated Interventions Patient/Client Instruction: Educate patient on: Risk Factors For the Purpose of:: To improve safety Therapeutic Exercise to Include: Strength training, Balance training and Gait and locomotor training For the Purpose of:: To improve muscle performance and motor function, To increase tolerance to activity/condition/position and To improve safety Text: Thank you for the opportunity to evaluate your patient. For Medicare and Medicare HMO plans, please review the plan of care and approve it. It will need to be FAXED BACK to us at [phone] for Medicare purposes. For Medicare only, by signing this I certify the plan of care. Please let me know if there are questions or concerns regarding this plan of care. Physician Signature: Date:
--- NOTE | 2025-09-21 13:56 | HP.PTDCSUM ---
Discharge Summary D/C summary: It has been my pleasure to treat DESIREE ROSAS referred by Dr. Fernandez Santana MD, with the diagnosis of weakness for a total of 9 visit(s). Discharge Date: 09/21/25 Please see the following information for a summary of their discharge status. Subjective Subjective: Better ;overall. Could not have walked as far as I did today a month ago. Good days and bad days still. Does machines in gym 5 days per week. Walks less on his own. Likes machinees beettr. Can do gym on his own.Will see Dr. Matthew office on Saturday. agrees with 50% better. Pain quads.: Pain Intensity (Out of 10): Unrated Overall Improvement % Improvement: 50 Objective Objective/Function: walks with wh walkr multiple laps today breaking in between each one with wh walker and tired but no obvious leg dysfucniton like he had the first day after 200 feet. Goals Goal 1:: Walk 400 feet with wh walker mod I without loss of leg fucntion. Goal Progress: Progressing Goal 2:: I appropriate gyma dn home ex to fend off sedetairsm adn improve safety. Goal Progress: Goal Met Plan Plan: d/c to gym and walking program with rollator. frequnt movement at home. D/C Information Discharge Comments: pt to ortho this Saturday and will continue gym x and rollator walking to tolrance adn safety . d/c sentence: If there are questions or concerns regarding this patient's physical therapy, please feel free to call me at [phone]. Thank you for the referral of this patient. Sincerely, Ben Fuller, DPT, OCS, CSCS Balance/Gait/Functional tests Balance/Special Test Scores Lower Extremity Functional Score: 23 Improvement % Improvement: 50
== END 2025-09-21 19:00 | disposition home or self-care (01) ==
LOC: PT 13:00
PROVIDERS: PCP Internal Medicine; Referring Provider Internal Medicine; Visit Provider Internal Medicine
DX: R13.12 Dysphagia, oropharyngeal phase (principal)
CPT/HCPCS: 92610; 97110; 97163; 97530

== ENCOUNTER → 2025-09-27 | Outpatient (CLI) | payer MEDICARE, SELFPAY | END | disposition home or self-care (01) | LOC: LABSPEC 15:47 | PROVIDERS: PCP Internal Medicine; Referring Provider Nurse Practitioner; Visit Provider Nurse Practitioner | DX: R30.0 Dysuria (principal) | CPT/HCPCS: 87086; 87088 ==

== ENCOUNTER 2025-10-05 10:23 | Observation (INO) | payer MEDICARE, SELFPAY ==
[2025-10-05] VITALS (15 sets, daily range): BP systolic 129–161; BP diastolic 64–87; PULSE 50–62; RESP 14–26; TEMP 36.4–36.7; O2SAT 95–98; BMI 28.2; BMI 28.3
--- NOTE | 2025-10-05 10:33 | EX.ED.DYSGE1 ---
HPI History of Present Illness Chief Complaint: Chest Pain Narrative Narrative: Patient is 89-year-old male with past medical history of congestive heart failure, neuropathy, atrial fibrillation/flutter on Eliquis, GERD, chronic kidney disease, hyperlipidemia, AAA who presented to the emergency department the chief complaint of chest pain. Patient states that he had an eating breakfast got up from the table into the living room and he developed chest pain he states that has been constant. Per EMS they disclosed that he developed chest pain shortly after he was told that his previous had . Patient denies any travel history denies any history of blood clots he states he has been compliant with his anticoagulation not missing doses. He states that his chest pain is better here in the emergency department. [facility] Medical History Pneumonia Trigger thumb, left thumb Left wrist pain Hypoxia Tremor Peripheral edema Chronic systolic (congestive) heart failure Unsteady gait when walking Muscle twitching Neuropathy Leukocytosis Obesity (BMI 30.0-34.9) Diastolic CHF, acute on chronic Atrial fibrillation/flutter Right carotid bruit Stable angina GERD (gastroesophageal reflux disease) Myocardial infarct Complicated urinary tract infection Urinary tract infection Colonic mass Controlled type 2 diabetes mellitus Acute respiratory insufficiency Chronic kidney disease Chronic anemia Bilateral edema of lower extremity Fatigue Pleural effusion (HFpEF) heart failure with preserved ejection fraction Colon polyp Lightheadedness Chronic constipation Obstructive sleep apnea Gastroesophageal reflux disease Allergic rhinitis Hyperlipidemia Urinary retention Wears hearing aid Wears dentures Wears glasses Cancer History of steroid therapy Arthritis Kidney stone Easy bruising Back pain Injury of back History of hiatal hernia Former smoker BiPAP (biphasic positive airway pressure) dependence Hoarseness Chronic cough Leg cramps History of pain when walking History of stress test History of heart attack Recurrent urinary tract infection ALMEIDA (dyspnea on exertion) Chest pain Right leg swelling Patellar bursitis of right knee Asthma-COPD overlap syndrome Abdominal aortic aneurysm (AAA) Peripheral vascular disease of extremity with claudication Rectus sheath hematoma Pre-syncope Essential (primary) hypertension Restless legs syndrome Daytime hypersomnia Somatic dysfunction of pelvic region DDD (degenerative disc disease), lumbar Overweight Seasonal allergies Carotid bruit Atherosclerotic heart disease of [place] coronary artery without angina pectoris Home Medications ?Medication ?Instructions ?Recorded ?Last Taken ?Type handicap placcard #1 ea 09/28/19 Unknown Rx coenzyme Q10 100 mg capsule (Co 100 mg PO DAILY supplement 05/03/20 01/29/25 History Q-10) cholecalciferol (vitamin D3) 100 100 mcg PO DAILY supplement 11/03/20 01/29/25 History mcg (4,000 unit) tablet spacer #1 ea 01/12/21 Unknown Rx lancets #180 ea 07/18/23 Unknown Rx tamsulosin 0.4 mg capsule 0.4 mg PO DAILY prostate 06/01/24 01/22/25 History Held on 08/26/25. Instructions: patient not taking finasteride 5 mg tablet 5 mg PO DAILY prostate 06/28/24 01/28/25 History handicap placard #1 ea 10/12/24 Unknown Rx apixaban 2.5 mg tablet (Eliquis) 2.5 mg PO BID atrial fibrillation 12/14/24 02/19/25 Rx #180 tabs ipratropium bromide 21 mcg (0.03 2 spray intranasal BID PRN allergy 12/14/24 Unknown History %) nasal spray symptoms blood sugar diagnostic (OneTouch #180 ea 12/21/24 Unknown Rx Ultra Test strips) albuterol sulfate 90 mcg/actuation 2 inh inhalation Q4H PRN shortness 01/04/25 01/28/25 Rx aerosol inhaler (Ventolin HFA) of breath or wheezing #18 grams ipratropium 0.5 mg-albuterol 3 mg 3 ml inhalation TID SOB &/OR 01/29/25 01/28/25 History (2.5 mg base)/3 mL nebulization 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,master in chancery,cont #1 ea 02/01/25 Unknown Rx (FreeStyle Dwight 3 Lawrence) budesonide-formoterol HFA 160 2 puff inhalation BID copd #3 ea 03/23/25 Unknown Rx mcg-4.5 mcg/actuation aerosol inhaler (Symbicort) mecobalamin (vitamin B12) 1,000 1,000 mcg PO QDAY 04/05/25 Unknown History mcg chewable tablet (B12 Active) ropinirole 1 mg tablet See Rx Instructions PO QHS PRN 04/05/25 Unknown History Held on 08/26/25. restless leg Instructions: patient not taking carvedilol 6.25 mg tablet 6.25 mg PO BID #180 tabs 04/08/25 Unknown Rx gabapentin 100 mg capsule 100 mg PO QDAY 04/27/25 Unknown History montelukast 10 mg tablet 10 mg PO QHS Respiratory #90 tabs 05/21/25 Unknown Rx magnesium oxide 500 mg capsule 500 mg PO QDAY 05/31/25 Unknown History pantoprazole 40 mg tablet,delayed 40 mg PO DAILY reflux #90 tabs 06/11/25 Unknown Rx release pen needle, diabetic 31 gauge x #100 ea 06/21/25 Unknown Rx 1/4 (Unifine Pentips) empagliflozin 10 mg tablet 10 mg PO DAILY #90 tabs 06/28/25 Unknown Rx (Jardiance) atorvastatin 40 mg tablet 40 mg PO QODAY cholesterol #60 tabs 07/13/25 Unknown Rx potassium chloride 20 mEq 20 meq PO BID supplement #60 tabs 07/13/25 Unknown Rx tablet,extended release(part/cryst) dextromethorphan-guaifenesin ER 60 1 tab PO BID 7 days #14 tabs 07/17/25 Unknown Rx mg-1,200 mg tab,extend release,12hr insulin aspart U-100 100 unit/mL 13 unit (0.13 mL) subcut TID PRN 07/17/25 Unknown Rx subcutaneous cartridge (Novolog diabetes #15 mL PenFill U-100 Insulin aspart) nitroglycerin 0.4 mg sublingual 0.4 mg sublingual Q5-15M PRN chest 07/28/25 Unknown Rx tablet (Nitrostat) pain #25 tabs 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 sensor (FreeStyle #3 ea 08/02/25 Unknown Rx Dwight 3 Plus Sensor device) furosemide 40 mg tablet 40 mg PO BID 90 days #180 tabs 08/04/25 Unknown Rx hydralazine 100 mg tablet 50 mg PO BID hypertension 08/04/25 Unknown History lactulose 10 gram/15 mL oral 20 g (30 mL) PO DAILY PRN 08/26/25 Unknown Rx solution constipation #1,200 mL azithromycin 250 mg tablet 250 mg PO ONCE #36 tabs 08/31/25 Unknown Rx ranolazine 500 mg tablet,extended 500 mg PO .COMPLEX #360 tabs 09/17/25 Unknown Rx release,12 hr ferrous sulfate 325 mg (65 mg 325 mg PO DAILY low iron #30 tabs 09/20/25 Unknown Rx iron) tablet (FeroSul) insulin glargine 100 unit/mL (3 25 unit (0.25 mL) subcut DAILY 09/20/25 Unknown Rx mL) subcutaneous pen (Lantus diabetes #15 mL Solostar U-100 Insulin) ipratropium bromide 42 mcg (0.06 2 spray intranasal TID 10/05/25 Unknown History %) nasal spray Allergy/AdvReac Type Severity Reaction Status Date / Time cilostazol (From Pletal) Allergy Unknown Verified 10/05/25 10:32 felodipine Allergy Hives Verified 10/05/25 10:32 levofloxacin Allergy Hives Verified 10/05/25 10:32 Sulfa (Sulfonamide Allergy Unknown Verified 10/05/25 10:32 Antibiotics) isosorbide AdvReac Intermediate low BP Verified 10/05/25 10:32 Family History Father Diabetes Prostate cancer Mother Dementia Brother Parkinsons Brother Cancer H/O vascular surgery Surgical History History of appendectomy History of surgical procedure H/O vascular surgery History of surgical procedure History of transurethral resection of prostate History of endarterectomy (07/2018) History of left heart catheterization (03/2014) History of coronary artery stent placement (02/17/08) History of vascular surgery (08/2018) History of hernia repair H/O aortic aneurysm repair (11/1998) Social History adopted: No household members: spouse number of children: 3 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 status: 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 pets and animals: No sexually active: No Smoking Status: Former smoker quit date: 08/07/08 pack-years: 52 Tobacco: How many years used: 52 Electronic Cigarette Use: not used how long ago did patient quit smokin years ago alcohol intake: current alcohol intake frequency: holidays/special occasions only details: <3 in 1 sitting hx of alcohol abuse substance use type: does not use caffeine: Yes (1-2xqweek) Type: coffee what type of physical activity do you participate in: other details: Nustep frequency: 5-6 times per week duration: 15-30 minutes/day seatbelt use: always do you feel safe at home: Yes ROS ROS ED ROS Narrative Constitutional: Denies any fevers, chills, headaches Cardiovascular: Complains of chest discomfort as noted above nothing makes this better or worse Respiratory: States that he is short of breath but is chronically short of breath this is not new for him Abdomen: Denies abdominal pain nausea vomit diarrhea : Denies urinary symptoms Neurological: Denies any numbness, weakness, tingling Musculoskeletal: Denies back pain Skin: Denies rashes or lesions EXAM Physical Exam Narrative Exam Narrative: General: Patient was lying in bed rest comfortably did not appear to be in acute distress Head: Atraumatic, normocephalic Eyes: PERRL bilaterally, EOMI bilaterally, no conjunctival injection noted Neck: Soft, supple, trachea midline Cardiovascular: Patient is noted to be bradycardic no murmurs gallops rubs noted Respiratory: Clear to auscultation bilaterally Abdomen: Soft, nondistended, nontender to palpation Extremities: +4/5 strength noted in the bilateral upper and lower extremities Neurological: Patient following commands knew that he was at [facility] year is 2024 Skin: Warm, dry, tact no rashes or lesions noted Const Vital Signs: 10/05/25 10:24 10/05/25 10:31 10/05/25 10:35 Temperature 97.5 F L Temperature Source Oral Pulse Rate 56 L Respiratory Rate 16 Respiratory Effort Normal Blood Pressure 153/87 H Blood Pressure Mean 109 Pulse Ox 97 98 Oxygen Delivery Method Room Air Room Air 10/05/25 11:23 10/05/25 12:22 10/05/25 13:33 Temperature Temperature Source Pulse Rate 53 L 50 L 52 L Respiratory Rate 15 20 H 20 H Respiratory Effort Blood Pressure 148/64 H 153/81 H 150/75 H Blood Pressure Mean 92 105 100 Pulse Ox 96 97 97 Oxygen Delivery Method Room Air Room Air Room Air MDM MDM MDM Narrative Medical decision making narrative: Patient is a 82-year-old male who presents to the emergency department chief complaint chest pain. On the differential diagnose includes but not limited to anxiety, panic attack, ACS. Once workup is obtained reviewed he will be reevaluated. Patient CBC reviewed and showed a white blood count that was normal at 6.6, hemoglobin was noted be 14.8, plate count of 326. Patient's sodium is 133, potassium was 5.2 however this was hemolyzed, creatinine was elevated to 2.45 he has underlying chronic kidney disease. Patient's troponin was 45 with a delta troponin of 60. Do suspect that this is likely secondary to his underlying kidney disease as he has chronically elevated troponins in the past and the nitroglycerin that he took earlier did not help his chest pain. Patient's chest x-ray was reviewed by myself and by radiology showed hazy lung opacity bilaterally which may represent edema or early pneumonitis. Patient was ambulated here in the emergency department however he had a near syncopal episode and was very weak. At this point time will discuss case with hospitalist for admission at 1:28 PM. At 1:50 PM spoke with hospitalist Dr. Chandra who accept patient for admission. Notified the patient and family at bedside they are agreeable this plan all course concerns answered. Lab Data Labs: Laboratory Results - last 24 hr 10/05/25 10/05/25 10/05/25 10:41 10:42 11:55 WBC 6.6 RBC 4.52 L Hgb 14.8 Hct 45.0 MCV 99.6 H MCH 32.7 H MCHC 32.9 RDW Std Deviation 46.5 H RDW Coeff of Justin 12.5 Plt Count 326 MPV 10.4 Immature Gran % (Auto) 0.800 Neut % (Auto) 70.4 H Lymph % (Auto) 15.9 L [place] % (Auto) 10.6 H Eos % (Auto) 1.7 Baso % (Auto) 0.6 Absolute Neuts (auto) 4.7 Absolute Lymphs (auto) 1.05 Nucleated RBC % 0 Sodium 133 L Potassium 5.2 H Chloride 97 Carbon Dioxide 27.9 Anion Gap 9 BUN 36 H Creatinine 2.45 H Estim Creat Clear Calc 22.73 L Est GFR (MDRD) Non-Af 25 L BUN/Creatinine Ratio 14.8 Glucose 265 H Calcium 9.2 Troponin T High Sens 45 H Troponin T Hi Sens 2 Hr 60 H* POC Glucose 259 H Radiography Diagnostic Testing: Clinical Impression(s) from Imaging Studies Chest X-Ray 10/05/25 10:55 IMPRESSION: Hazy lung opacities bilaterally, may represent edema or early pneumonitis. Reading Location: [facility] Discharge Plan Triage Chief Complaint: Chest Pain ED Provider: Naresh Solano Dx/Rx/DC Orders Clinical Impression: Generalized weakness, Chronic kidney disease, Type 2 [place] (myocardial infarction), (HFpEF) heart failure with preserved ejection fraction, PAD (peripheral artery disease), Atrial fibrillation with controlled ventricular rate, DM2 (diabetes mellitus, type 2) Prescriptions: No Action (DME) handicap placcard Qty: 1 0RF Rx Instructions: Lifetime: debility coenzyme Q10 [Co Q-10] 100 mg capsule 100 mg PO DAILY cholecalciferol (vitamin D3) 100 mcg (4,000 unit) tablet 100 mcg PO DAILY (DME) spacer See Rx Instructions .ROUTE .MEDSUPPLY Qty: 1 0RF Rx Instructions: As directed (DME) lancets Misc See Rx Instructions .Route Qty: 180 1RF Rx Instructions: twice daily tamsulosin 0.4 mg capsule 0.4 mg PO DAILY Patient Comments: PT TAKES SOMETIMES magnesium oxide 500 mg capsule 500 mg PO QDAY (DME) FreeStyle Dwight 3 Lawrence Misc See Rx Instructions .Route Qty: 1 0RF Rx Instructions: As directed budesonide-formoterol [Symbicort] 160-4.5 mcg/actuation HFA aerosol inhaler 2 puff inhalation BID Qty: 3 3RF Rx Instructions: administer with spacer, rinse mouth after each use ropinirole 1 mg tablet See Rx Instructions PO QHS PRN (Reason: restless leg) Rx Instructions: 2-3 orally at bedtime PRN; administer 2-3 tablets, 1-3 hours before bedtime mecobalamin (vitamin B12) [B12 Active] 1,000 mcg tablet,chewable 1,000 mcg PO QDAY gabapentin 100 mg capsule 100 mg PO QDAY Rx Instructions: SPECIAL INSTRUCTIONS CAN USE UP TO 300 PRN (DME) pen needle, diabetic [Unifine Pentips] 31 gauge x 1/4 needle See Rx Instructions .ROUTE .COMPLEX Qty: 100 1RF Dose Instruction: use 3 TO 4 needles daily Rx Instructions: use 3 TO 4 needles daily lactulose 10 gram/15 mL solution 20 g PO DAILY PRN (Reason: constipation) Qty: 1200 0RF azithromycin 250 mg tablet 250 mg PO ONCE Qty: 36 3RF Rx Instructions: Saturday, Saturday, Saturday hydralazine 100 mg tablet 50 mg PO BID finasteride 5 mg tablet 5 mg PO DAILY Patient Comments: PT TAKES AT NIGHT ipratropium bromide 21 mcg (0.03 %) spray,non-aerosol 2 spray intranasal BID PRN (Reason: allergy symptoms) Rx Instructions: administer into each nostril ipratropium bromide 42 mcg (0.06 %) spray,non-aerosol 2 spray INTRANASAL TID ipratropium-albuterol 0.5 mg-3 mg(2.5 mg base)/3 mL solution for nebulization 3 ml inhalation TID Rx Instructions: 3 mL inhaled; dextromethorphan-guaifenesin 60-1,200 mg tablet extended release 12 hr 1 tab PO BID 7 Days Qty: 14 0RF insulin aspart U-100 [Novolog PenFill U-100 Insulin] 100 unit/mL cartridge 13 unit subcut TID PRN (Reason: diabetes) Qty: 15 0RF Rx Instructions: hold if glucose is under 130 (DME) handicap placard See Rx Instructions .ROUTE .MEDSUPPLY Qty: 1 0RF Rx Instructions: Length of time: 5 years Diganosis: Impaired physical mobility Eliquis 2.5 mg tablet 2.5 mg PO BID Qty: 180 4RF (DME) OneTouch Ultra Test Strip See Rx Instructions .Route Qty: 180 1RF Rx Instructions: Check three to four times a day. albuterol sulfate [Ventolin HFA] 90 mcg/actuation HFA aerosol inhaler 2 inh INHALATION Q4H PRN (Reason: shortness of breath or wheezing) Qty: 18 6RF carvedilol 6.25 mg tablet 6.25 mg PO BID Qty: 180 3RF Rx Instructions: must administer with a meal/food montelukast 10 mg tablet 10 mg PO QHS Qty: 90 3RF pantoprazole 40 mg tablet,delayed release (DR/EC) 40 mg PO DAILY Qty: 90 3RF Jardiance 10 mg tablet 10 mg PO DAILY Qty: 90 3RF atorvastatin 40 mg tablet 40 mg PO QODAY Qty: 60 3RF Rx Instructions: at bedtime potassium chloride 20 mEq tablet,ER particles/crystals 20 meq PO BID Qty: 60 2RF nitroglycerin [Nitrostat] 0.4 mg tablet, sublingual 0.4 mg SUBLINGUAL Q5-15M PRN (Reason: chest pain) Qty: 25 2RF (DME) FreeStyle Dwight 3 Plus Sensor Device See Rx Instructions .Route Qty: 3 2RF Rx Instructions: As directed furosemide 40 mg tablet 40 mg PO BID 90 Days Qty: 180 3RF ranolazine 500 mg tablet extended release 12 hr 500 mg PO .COMPLEX Qty: 360 3RF Rx Instructions: 500 mg orally two tablets twice a day (pt cannot swallow the 1000mg tablets ); ferrous sulfate [FeroSul] 325 mg (65 mg iron) tablet 325 mg PO DAILY Qty: 30 2RF Rx Instructions: 1 tablet daily insulin glargine [Lantus Solostar U-100 Insulin] 100 unit/mL (3 mL) insulin pen 25 unit subcut DAILY Qty: 15 0RF Rx Instructions: Hold if glucose less than 130 mg/dl Primary Care Provider: Carolynn Whitman Referrals: Carolynn Whitman MD [Primary Care Provider, Internal Medicine] Print Language: Spanish Disposition Disposition: Home, Self Care
[2025-10-05 10:49] LABS: Hematocrit 45.0 % (40-54); Hemoglobin 14.8 g/dL (13.0-16.5); Immature Granulocytes Count 0.050 X10^3/uL (0.0-0.0); Mean Corp Hgb Conc 32.9 g/dL (32-36); Mean Corpuscular Volume 99.6 fL (80-94); Mean Platelet Vol. 10.4 fl (6.2-12.0); NRBC Flagged by Analyzer 0 % (0-5); Platelet Count 326 K/mm3 (150-450); RBC Distribution Width CV 12.5 % (11.6-14.6); RBC Distribution Width SD 46.5 fl (35.1-43.9); Red Blood Count 4.52 M/mm3 (4.6-6.2); White Blood Count 6.6 K/mm3 (4.4-11.0)
--- NOTE | 2025-10-05 10:55 | RAD_ITS ---
PROCEDURE: CHEST PA AND LATERAL 10/05/2025 REASON FOR EXAM: CHEST PAIN TECHNIQUE: Procedure Code: RADCXR Modality: DX Procedure: CHEST PA AND LATERAL COMPARISON: 07/15/2025 FINDINGS: LUNGS AND PLEURA: Emphysematous lung changes. Strand-like atelectasis/scarring in the medial right lung base. Hazy opacities in the mid and lower lungs bilaterally. No pleural effusion or pneumothorax. HEART AND MEDIASTINUM: The cardiac silhouette is enlarged. The mediastinal contour is normal. A coronary artery stent is present. AORTA: Calcified thoracic aorta. BONES: No acute osseous abnormality. Fixation hardware in the right clavicle. RAD/Chest PA and Lateral IMPRESSION: Hazy lung opacities bilaterally, may represent edema or early pneumonitis. Reading Location: [id number]
[2025-10-05 11:14] LABS: Anion Gap 9 (7-18); BUN 36 mg/dL (4-19); BUN/Creat Ratio 14.8 RATIO (10-20); Calcium,Total 9.2 mg/dL (7.6-11.0); Carbon Dioxide 27.9 mmol/L (20.0-29.0); Chloride 97 mmol/L (96-106); Estimated Creatinine Clearance 22.73 ml/min (50-250); Glucose 265 mg/dL (70-99); Potassium 5.2 mmol/L (3.5-5.1); Troponin T High Sensitivity 45 ng/L (<=22)
[2025-10-05 12:35] LABS: Troponin T High Sens 2 HR 60 ng/L (<=22)
--- NOTE | 2025-10-05 14:40 | CASEMGMT ---
Care Management Face to Face with patient for initial transition planning/care coordination assessment in the ED.? This board writer introduced self and role at [facility]. Patient alert and oriented. Patient willing to participate in assessment and is able to answer all questions appropriately.? Care providers, pharmacy, and demographics verified. Admitting Diagnosis: Heart failure Other diagnosis history: ?neuropathy, afib, GERD, CKD, hyperlipidemia, AAA PCP: ?[facility] Specialists: ?Salena, neurologist, Stephen, vascular, Andrae, imcu specialist, Venancio Painter, hydrator operator, Indrai, pain management, Ignacio, foster care worker Preferred Pharmacy: [facility] Insurance: [employer] Prescription Benefit: Yes Living Will/HPOA: ?both completed, [place] is HPOA LNOK: Living Arrangements: ?Patient lives with in a one story home.? Patient reports being independent with ADL.? takes care of cooking, cleaning and laundry.? Transportation: transports patients as needed DME: ?two walkers, rollator, shower chair, cane, grab bars, blood pressure cuff, scooter, glucometer HHC: ?none SNF/Rehab: TCU Community Resources: ?none Behavioral Health History: ?none Patient goals: Patient wishes to discharge home.? Denies need for home health care at this time, patient states that there is no room for home health to come to the house. Reports there is more room in the hospital room than there is in their home. Patient denies any further needs or concerns at this time. Disposition Plan: admission to acute; RN CM/SW to follow for discharge planning needs that may arise. Candy Hudson, TRIMMING CASER, CLINICAL REHABILITATION SPECIALIST
[2025-10-05 15:08] LABS: Troponin T High Sens 4 HR 67 ng/L (<=22)
--- NOTE | 2025-10-05 17:23 | PCM.HP.STD ---
HPI - General General Date of Admission: 10/05/25 HPI Narrative DESIREE ROSAS, is a 89 M who presents to the hospital with some chest pain, he has known coronary artery disease that is being medically managed with previous history of 9 stents. He did receive some bad news this morning which is when the chest pain started. He is already on maximum therapy from cardiology standpoint and was started on ranolazine about a year ago after he had a slightly positive stress test. Troponins are mildly elevated but insignificantly so is they are at his baseline especially in the setting of his chronic kidney disease. The reason for admission was the ER felt that he may have had a syncopal episode however in discussion with the patient and nursing he never collapsed and he states that he was not dizzy he just felt weak. COVID and flu test were negative and he had a UA about a week ago which was unremarkable though he does endorse some burning with urination so we will repeat a UA. [facility] Medical History Pneumonia Trigger thumb, left thumb Left wrist pain Hypoxia Tremor Peripheral edema Chronic systolic (congestive) heart failure Unsteady gait when walking Muscle twitching Neuropathy Leukocytosis Obesity (BMI 30.0-34.9) Diastolic CHF, acute on chronic Atrial fibrillation/flutter Right carotid bruit Stable angina GERD (gastroesophageal reflux disease) Myocardial infarct Complicated urinary tract infection Urinary tract infection Colonic mass Controlled type 2 diabetes mellitus Acute respiratory insufficiency Chronic kidney disease Chronic anemia Bilateral edema of lower extremity Fatigue Pleural effusion (HFpEF) heart failure with preserved ejection fraction Colon polyp Lightheadedness Chronic constipation Obstructive sleep apnea Gastroesophageal reflux disease Allergic rhinitis Hyperlipidemia Urinary retention Wears hearing aid Wears dentures Wears glasses Cancer History of steroid therapy Arthritis Kidney stone Easy bruising Back pain Injury of back History of hiatal hernia Former smoker BiPAP (biphasic positive airway pressure) dependence Hoarseness Chronic cough Leg cramps History of pain when walking History of stress test History of heart attack Recurrent urinary tract infection ALMEIDA (dyspnea on exertion) Chest pain Right leg swelling Patellar bursitis of right knee Asthma-COPD overlap syndrome Abdominal aortic aneurysm (AAA) Peripheral vascular disease of extremity with claudication Rectus sheath hematoma Pre-syncope Essential (primary) hypertension Restless legs syndrome Daytime hypersomnia Somatic dysfunction of pelvic region DDD (degenerative disc disease), lumbar Overweight Seasonal allergies Carotid bruit Atherosclerotic heart disease of [place] coronary artery without angina pectoris Home Medications ?Medication ?Instructions ?Recorded ?Last Taken ?Type handicap placcard #1 ea 09/28/19 Unknown Rx coenzyme Q10 100 mg capsule (Co 100 mg PO DAILY supplement 05/03/20 10/05/25 History Q-10) cholecalciferol (vitamin D3) 100 100 mcg PO DAILY supplement 11/03/20 10/05/25 History mcg (4,000 unit) tablet spacer #1 ea 01/12/21 Unknown Rx lancets #180 ea 07/18/23 Unknown Rx tamsulosin 0.4 mg capsule 0.4 mg PO DAILY prostate 06/01/24 10/04/25 History finasteride 5 mg tablet 5 mg PO DAILY prostate 06/28/24 10/04/25 History handicap placard #1 ea 10/12/24 Unknown Rx apixaban 2.5 mg tablet (Eliquis) 2.5 mg PO BID atrial fibrillation 12/14/24 02/19/25 Rx #180 tabs blood sugar diagnostic (OneTouch #180 ea 12/21/24 Unknown Rx Ultra Test strips) albuterol sulfate 90 mcg/actuation 2 inh inhalation Q4H PRN shortness 01/04/25 01/28/25 Rx aerosol inhaler (Ventolin HFA) of breath or wheezing #18 grams ipratropium 0.5 mg-albuterol 3 mg 3 ml inhalation TID SOB &/OR 01/29/25 01/28/25 History (2.5 mg base)/3 mL nebulization 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,live games dealer,cont #1 ea 02/01/25 Unknown Rx (FreeStyle [place] 3 [place]) budesonide-formoterol HFA 160 2 puff inhalation BID copd #3 ea 03/23/25 10/05/25 Rx mcg-4.5 mcg/actuation aerosol inhaler (Symbicort) mecobalamin (vitamin B12) 1,000 1,000 mcg PO QDAY supplement 04/05/25 10/05/25 History mcg chewable tablet (B12 Active) ropinirole 1 mg tablet See Rx Instructions PO QHS PRN 04/05/25 10/04/25 History restless leg carvedilol 6.25 mg tablet 6.25 mg PO BID heart #180 tabs 04/08/25 10/05/25 Rx gabapentin 100 mg capsule 100 mg PO QDAY pain 04/27/25 10/04/25 History montelukast 10 mg tablet 10 mg PO QHS Respiratory #90 tabs 05/21/25 10/04/25 Rx magnesium oxide 500 mg capsule 500 mg PO QDAY supplement 05/31/25 10/05/25 History pantoprazole 40 mg tablet,delayed 40 mg PO DAILY reflux #90 tabs 06/11/25 10/05/25 Rx release pen needle, diabetic 31 gauge x #100 ea 06/21/25 Unknown Rx 1/4 (Unifine Pentips) empagliflozin 10 mg tablet 10 mg PO DAILY blood sugar #90 tabs 06/28/25 10/05/25 Rx (Jardiance) atorvastatin 40 mg tablet 40 mg PO QODAY cholesterol #60 tabs 07/13/25 10/04/25 Rx potassium chloride 20 mEq 20 meq PO BID supplement #60 tabs 07/13/25 10/05/25 Rx tablet,extended release(part/cryst) insulin aspart U-100 100 unit/mL 13 unit (0.13 mL) subcut TID PRN 07/17/25 Unknown Rx subcutaneous cartridge (Novolog diabetes #15 mL PenFill U-100 Insulin aspart) nitroglycerin 0.4 mg sublingual 0.4 mg sublingual Q5-15M PRN chest 07/28/25 10/05/25 Rx tablet (Nitrostat) pain #25 tabs 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 sensor (FreeStyle #3 ea 08/02/25 Unknown Rx Dwight 3 Plus Sensor device) furosemide 40 mg tablet 40 mg PO BID edema 90 days #180 08/04/25 10/05/25 Rx tabs hydralazine 100 mg tablet 50 mg PO BID hypertension 08/04/25 Unknown History lactulose 10 gram/15 mL oral 20 g (30 mL) PO DAILY PRN 08/26/25 Unknown Rx solution constipation #1,200 mL azithromycin 250 mg tablet 250 mg PO ONCE #36 tabs 08/31/25 10/04/25 Rx ranolazine 500 mg tablet,extended 500 mg PO .COMPLEX heart #360 tabs 09/17/25 10/05/25 Rx release,12 hr ferrous sulfate 325 mg (65 mg 325 mg PO DAILY low iron #30 tabs 09/20/25 10/05/25 Rx iron) tablet (FeroSul) acetaminophen 500 mg capsule 1,000 mg PO Q6H PRN pain 10/05/25 10/04/25 History insulin glargine 100 unit/mL (3 20 unit subcut QHS diabetes 10/05/25 10/04/25 History mL) subcutaneous pen (Lantus Solostar U-100 Insulin) ipratropium bromide 42 mcg (0.06 2 spray intranasal TID allergies 10/05/25 Unknown History %) nasal spray cephalexin 500 mg capsule 500 mg PO Q8H 4 days #12 caps 10/06/25 Unknown Rx Allergy/AdvReac Type Severity Reaction Status Date / Time cilostazol (From Pletal) Allergy Unknown Verified 10/05/25 10:32 felodipine Allergy Hives Verified 10/05/25 10:32 levofloxacin Allergy Hives Verified 10/05/25 10:32 Sulfa (Sulfonamide Allergy Unknown Verified 10/05/25 10:32 Antibiotics) isosorbide AdvReac Intermediate low BP Verified 10/05/25 10:32 Family History Father Diabetes Prostate cancer Mother Dementia Brother Parkinsons Brother Cancer H/O vascular surgery Surgical History History of appendectomy History of surgical procedure H/O vascular surgery History of surgical procedure History of transurethral resection of prostate History of endarterectomy (07/2018) History of left heart catheterization (03/2014) History of coronary artery stent placement (02/17/08) History of vascular surgery (08/2018) History of hernia repair H/O aortic aneurysm repair (11/1998) Social History (Updated 10/05/25 @ 15:33 by Antonia Watson) adopted: No household members: spouse number of children: 3 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 status: 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 pets and animals: No sexually active: No Smoking Status: Former smoker quit date: 08/07/08 pack-years: 52 Tobacco: How many years used: 52 Electronic Cigarette Use: not used how long ago did patient quit smokin years ago alcohol intake: current alcohol intake frequency: holidays/special occasions only details: <3 in 1 sitting hx of alcohol abuse substance use type: does not use caffeine: Yes (1-2xqweek) Type: coffee what type of physical activity do you participate in: other details: Nustep frequency: 5-6 times per week duration: 15-30 minutes/day seatbelt use: always do you feel safe at home: Yes ROS Constitutional Constitutional: Denies chills, fatigue, fever(s) or malaise Eyes Eyes: Denies blurry vision ENT HEENT: Denies headache(s) or nasal discharge Cardiovascular Cardiovascular: Reports chest pain; Denies dyspnea on exertion or syncope Respiratory/Chest Respiratory/Chest: Denies cough, shortness of breath at rest or shortness of breath with exertion Gastrointestinal Gastrointestinal: Denies constipation, diarrhea, nausea or vomiting Genitourinary Genitourinary: Reports dysuria Neurologic Neurologic: Denies focal weakness, numbness or tremor(s) Psychiatric Psychiatric: Denies anxiety or depression Patient's Goals Of Care . Unable to discuss care goals with the patient and or patient client representative at this time: Yes Vital Signs Vital Signs Vital Signs: 10/05/25 10:24 10/05/25 10:31 10/05/25 10:35 Temperature 97.5 F L Temperature Source Oral Pulse Rate 56 L Respiratory Rate 16 Respiratory Effort Normal Respiratory Depth Respiratory Pattern Blood Pressure 153/87 H Blood Pressure Mean 109 Blood Pressure Source Blood Pressure Position Blood Pressure Location Pulse Ox 97 98 Oxygen Delivery Method Room Air Room Air 10/05/25 11:23 10/05/25 12:22 10/05/25 13:33 Temperature Temperature Source Pulse Rate 53 L 50 L 52 L Respiratory Rate 15 20 H 20 H Respiratory Effort Respiratory Depth Respiratory Pattern Blood Pressure 148/64 H 153/81 H 150/75 H Blood Pressure Mean 92 105 100 Blood Pressure Source Blood Pressure Position Blood Pressure Location Pulse Ox 96 97 97 Oxygen Delivery Method Room Air Room Air Room Air 10/05/25 13:56 10/05/25 13:58 10/05/25 14:58 Temperature 97.8 F 97.8 F 98.1 F Temperature Source Temporal Oral Pulse Rate 62 55 L 51 L Respiratory Rate 26 H 25 H 22 H Respiratory Effort Respiratory Depth Respiratory Pattern Blood Pressure 129/80 H 129/80 H 158/78 H Blood Pressure Mean 96 96 104 Blood Pressure Source Blood Pressure Position Blood Pressure Location Pulse Ox 95 97 96 Oxygen Delivery Method Room Air Room Air 10/05/25 15:29 10/05/25 16:09 12/30/25 16:25 Temperature 97.8 F 97.9 F Temperature Source Oral Oral Pulse Rate 50 L 62 Respiratory Rate 16 14 Respiratory Effort Normal Non-Labored Respiratory Depth Normal Respiratory Pattern Normal Blood Pressure 161/72 H 155/79 H Blood Pressure Mean 101 104 Blood Pressure Source Monitor Blood Pressure Position Supine Blood Pressure Location Right Arm Pulse Ox 98 98 Oxygen Delivery Method Room Air Room Air Room Air Weight Weight: 186 lb 4.8 oz Body Mass Index (BMI) 28.3 Physical Exam Narrative General: Alert, Oriented x3, Cooperative, No apparent distress HEENT: Atraumatic, PERRLA, EOMI, Normocephalic Oral: Moist Mucosa Neck: Supple, No JVD Lungs: Diminished, Normal air movement, No rhonchi, No wheeze, No rales Cardiovascular: Regular rate, Regular Rhythm, Normal S1, Normal S2, No murmurs Abdomen: Soft, Non Tender, Non-Distended, No Hepato-splenomegaly Extremities: No edema, Capillary Refill Less than 3 Seconds Skin: No rashes, No breakdown, multiple areas of ecchymosis and skin tears in different stages of healing Musculoskeletal: No Tenderness to Palpation of Joints or Extremities Neurological: No focal neurological deficits, moves all extremities Psych/Mental Status: Normal Affect, Appropriate Results Lab / Micro Data 10/06/25 05:16 10/06/25 05:16 Labs: Laboratory Results - last 24 hr 10/05/25 10:41: POC Glucose 259 H 10/05/25 10:42: WBC 6.6, RBC 4.52 L, Hgb 14.8, Hct 45.0, MCV 99.6 H, MCH 32.7 H, MCHC 32.9, RDW Std Deviation 46.5 H, RDW Coeff of Justin 12.5, Plt Count 326, MPV 10.4, Immature Gran % (Auto) 0.800, Neut % (Auto) 70.4 H, Lymph % (Auto) 15.9 L, [place] % (Auto) 10.6 H, Eos % (Auto) 1.7, Baso % (Auto) 0.6, Absolute Neuts (auto) 4.7, Absolute Lymphs (auto) 1.05, Nucleated RBC % 0, Sodium 133 L, Potassium 5.2 H, Chloride 97, Carbon Dioxide 27.9, Anion Gap 9, BUN 36 H, Creatinine 2.45 H, Estim Creat Clear Calc 22.73 L, Est GFR (MDRD) Non-Af 25 L, BUN/Creatinine Ratio 14.8, Glucose 265 H, Calcium 9.2, Troponin T High Sens 45 H 10/05/25 11:55: Troponin T Hi Sens 2 Hr 60 H* 10/05/25 14:44: Troponin T Hi Sens 4Hr 67 H* 10/05/25 16:14: POC Glucose 131 H Micro: Microbiology 10/05/25 13:28 Mucosa - Nose SARS-CoV-2, Influenza & RSV (PCR) - Final Imaging Radiology Impression Chest X-Ray 10/05/25 10:55 IMPRESSION: Hazy lung opacities bilaterally, may represent edema or early pneumonitis. Reading Location: [facility] Assessment & Plan Assessment/Plan (1) Generalized weakness: PLAN: Plan 1. Chest pain/CAD status post stents/essential HTN/HLD/chronic diastolic CHF/A-fib ? Continue with blood pressure medications ? Continue with Lipitor ? Continue with Eliquis ? He had an echo in February with an EF of 40% and mild to moderate global hypokinesis of the left wall which is slightly worse than his previous echo ? Continue with aspirin ? Continue with Lasix ? Will consult PT and OT for evaluation 2. DM2 ? Stable, continue with his home Lantus ? Sliding scale insulin ? Accu-Cheks ACHS ? Will monitor make adjustments as necessary 3. GERD ? Stable ? Continue with PPI 4. BPH with obstruction ? Stable ? Continue with Flomax 5. Dysuria ? He had a UA about a week ago that was mixed organisms ? Will repeat urine analysis if positive can send for culture ? If his urine is dirty and culture does grow organisms will need to consider discontinuation of his Jardiance 6. Asthma/COPD overlap syndrome ? Not in exacerbation ? He is on MWF azithromycin ? Continue with his home inhalers 7. Iron deficiency anemia ? Stable ? Continue with iron DVT: Eliquis 75 minutes was spent on direct patient care, including documentation as well as chart review and collaboration with colleagues Charges/Coding Visit Charges Inpatient E&M: 20847 Init Hosp L3
[2025-10-05] MEDS: Albuterol 2.5 MG/3 ML VIAL.NEB. INHALATION (19:38)
[2025-10-05] MEDS: Budesonide Respules 0.5 MG/2 ML AMPUL.NEB. INHALATION (19:38)
[2025-10-05 20:45] LABS: Mucous, Urine 0 SEEN /hpf (<or=2+); Squamous Epithelial Cells - UA 0 SEEN /hpf (0-5)
[2025-10-05 20:55] LABS: Color, Urine Yellow (Yellow); Glucose, Dipstick 1000 mg/dl (Normal); Ketone-Dipstick Negative (Negative); Leukocyte Esterase-Dipstick 500 /ul (Negative); Nitrite-Dipstick Negative (Negative); Occult Blood-Urine Negative /ul (Negative); Protein-Dipstick 30 mg/dl (Negative); Specific Gravity, Urine 1.010 (1.002-1.030); Urine Bilirubin Dipstick Negative (Negative)
[2025-10-05] MEDS: Insulin Glargine-YFGN 100 UNIT/ML Pen 20 UNIT SC (22:06)
[2025-10-05 22:10] LABS: Red Blood Cells-Urine 0-5 SEEN /hpf (0-5)
[2025-10-05] MEDS: APIXABAN 2.5 MG TABLET (WCH) PO (22:11)
[2025-10-06] VITALS (9 sets, daily range): BP systolic 106–169; BP diastolic 69–97; PULSE 56–93; RESP 16–18; TEMP 36.4–36.7; O2SAT 95–98
[2025-10-06 06:21] LABS: Hematocrit 41.2 % (40-54); Hemoglobin 14.9 g/dL (13.0-16.5); Immature Granulocytes Count 0.060 X10^3/uL (0.0-0.0); Mean Corp Hgb Conc 36.2 g/dL (32-36); Mean Corpuscular Volume 99.8 fL (80-94); Mean Platelet Vol. 10.1 fl (6.2-12.0); NRBC Flagged by Analyzer 0 % (0-5); Platelet Count 305 K/mm3 (150-450); RBC Distribution Width CV 13.3 % (11.6-14.6); RBC Distribution Width SD 44.9 fl (35.1-43.9); Red Blood Count 4.13 M/mm3 (4.6-6.2); White Blood Count 9.0 K/mm3 (4.4-11.0)
[2025-10-06 06:46] LABS: Anion Gap 10 (7-18); BUN 38 mg/dL (4-19); BUN/Creat Ratio 16.5 RATIO (10-20); Calcium,Total 9.3 mg/dL (7.6-11.0); Carbon Dioxide 26.9 mmol/L (20.0-29.0); Chloride 96 mmol/L (96-106); Estimated Creatinine Clearance 23.60 ml/min (50-250); Glucose 106 mg/dL (70-99); Potassium 4.6 mmol/L (3.5-5.1)
[2025-10-06] MEDS: Albuterol 2.5 MG/3 ML VIAL.NEB. INHALATION ×2 (06:51→13:07)
[2025-10-06] MEDS: Budesonide Respules 0.5 MG/2 ML AMPUL.NEB. INHALATION (06:51)
[2025-10-06] MEDS: APIXABAN 2.5 MG TABLET (WCH) PO (08:29)
--- NOTE | 2025-10-06 11:13 | CASEMGMT ---
Social Work SW spoke with the patient and his . SW completed a caregiver strain index. The patient and reported they do not want HH or OP therapy at [place]. [facility]
--- NOTE | 2025-10-06 14:42 | PCM.DC ---
Discharge Instructions DC O2, CPAP, BIPAP needs Home O2 Discharge instructions: No Dressing / Incision Discharge Activity: Return to Normal Activity Dressing / Incision Call your doctor if you observe: Fever of 101 or Higher, Shortness of breath, Dizziness, Fainting spells, Swelling in the ankles, Chest pain and Increased palpitations (irregular heartbeat) Follow Up Care Test Results: Test results from this visit will be discussed in further detail at your follow-up appointment, if applicable. Discharge Plan Admission Admit Date/Time: 10/05/25 14:59 Attending Provider: Tk Chandra Primary Care Provider: Carolynn Whitman Discharge Orders/Prescriptions Prescriptions: New cephalexin 500 mg capsule 500 mg PO Q8H 4 Days Qty: 12 0RF Rx Instructions: Start 10/07/2025 Continued (DME) handicap placcard Qty: 1 0RF Rx Instructions: Lifetime: debility coenzyme Q10 [Co Q-10] 100 mg capsule 100 mg PO DAILY cholecalciferol (vitamin D3) 100 mcg (4,000 unit) tablet 100 mcg PO DAILY (DME) spacer See Rx Instructions .ROUTE .MEDSUPPLY Qty: 1 0RF Rx Instructions: As directed (DME) lancets Misc See Rx Instructions .Route Qty: 180 1RF Rx Instructions: twice daily tamsulosin 0.4 mg capsule 0.4 mg PO DAILY Patient Comments: PT has resumed taking magnesium oxide 500 mg capsule 500 mg PO QDAY (DME) FreeStyle Dwight 3 [place] Misc See Rx Instructions .Route Qty: 1 0RF Rx Instructions: As directed budesonide-formoterol [Symbicort] 160-4.5 mcg/actuation HFA aerosol inhaler 2 puff inhalation BID Qty: 3 3RF Rx Instructions: administer with spacer, rinse mouth after each use ropinirole 1 mg tablet See Rx Instructions PO QHS PRN (Reason: restless leg) Rx Instructions: 2-3 orally at bedtime PRN; administer 2-3 tablets, 1-3 hours before bedtime mecobalamin (vitamin B12) [B12 Active] 1,000 mcg tablet,chewable 1,000 mcg PO QDAY gabapentin 100 mg capsule 100 mg PO QDAY Rx Instructions: SPECIAL INSTRUCTIONS CAN USE UP TO 300 PRN (DME) pen needle, diabetic [Unifine Pentips] 31 gauge x 1/4 needle See Rx Instructions .ROUTE .COMPLEX Qty: 100 1RF Dose Instruction: use 3 TO 4 needles daily Rx Instructions: use 3 TO 4 needles daily lactulose 10 gram/15 mL solution 20 g PO DAILY PRN (Reason: constipation) Qty: 1200 0RF azithromycin 250 mg tablet 250 mg PO ONCE Qty: 36 3RF Rx Instructions: Saturday, Saturday, Saturday hydralazine 100 mg tablet 50 mg PO BID Patient Comments: pt cuts pill in half and takes half in the morning and half in the evening finasteride 5 mg tablet 5 mg PO DAILY Patient Comments: PT TAKES AT NIGHT ipratropium bromide 42 mcg (0.06 %) spray,non-aerosol 2 spray INTRANASAL TID insulin glargine [Lantus Solostar U-100 Insulin] 100 unit/mL (3 mL) insulin pen 20 unit subcut QHS Rx Instructions: Hold if glucose less than 130 mg/dl acetaminophen 500 mg capsule 1,000 mg PO Q6H PRN (Reason: pain) ipratropium-albuterol 0.5 mg-3 mg(2.5 mg base)/3 mL solution for nebulization 3 ml inhalation TID Rx Instructions: 3 mL inhaled; insulin aspart U-100 [Novolog PenFill U-100 Insulin] 100 unit/mL cartridge 13 unit subcut TID PRN (Reason: diabetes) Qty: 15 0RF Rx Instructions: hold if glucose is under 130 (DME) handicap placard See Rx Instructions .ROUTE .MEDSUPPLY Qty: 1 0RF Rx Instructions: Length of time: 5 years Diganosis: Impaired physical mobility Eliquis 2.5 mg tablet 2.5 mg PO BID Qty: 180 4RF (DME) OneTouch Ultra Test Strip See Rx Instructions .Route Qty: 180 1RF Rx Instructions: Check three to four times a day. albuterol sulfate [Ventolin HFA] 90 mcg/actuation HFA aerosol inhaler 2 inh INHALATION Q4H PRN (Reason: shortness of breath or wheezing) Qty: 18 6RF carvedilol 6.25 mg tablet 6.25 mg PO BID Qty: 180 3RF Rx Instructions: must administer with a meal/food montelukast 10 mg tablet 10 mg PO QHS Qty: 90 3RF pantoprazole 40 mg tablet,delayed release (DR/EC) 40 mg PO DAILY Qty: 90 3RF Jardiance 10 mg tablet 10 mg PO DAILY Qty: 90 3RF atorvastatin 40 mg tablet 40 mg PO QODAY Qty: 60 3RF Patient Comments: pt takes mo we fr Rx Instructions: at bedtime potassium chloride 20 mEq tablet,ER particles/crystals 20 meq PO BID Qty: 60 2RF nitroglycerin [Nitrostat] 0.4 mg tablet, sublingual 0.4 mg SUBLINGUAL Q5-15M PRN (Reason: chest pain) Qty: 25 2RF (DME) [facility] Dwight 3 Plus Sensor Device See Rx Instructions .Route Qty: 3 2RF Rx Instructions: As directed furosemide 40 mg tablet 40 mg PO BID 90 Days Qty: 180 3RF ranolazine 500 mg tablet extended release 12 hr 500 mg PO .COMPLEX Qty: 360 3RF Rx Instructions: 500 mg orally two tablets twice a day (pt cannot swallow the 1000mg tablets ); ferrous sulfate [FeroSul] 325 mg (65 mg iron) tablet 325 mg PO DAILY Qty: 30 2RF Rx Instructions: 1 tablet daily Referrals / Follow Up: Carolynn Whitman MD [Primary Care Provider, Internal Medicine] - Within 1 Week Disposition Disposition (needs filled in before D/C Order can be placed): Home, Self Care
--- NOTE | 2025-10-06 14:49 | CASEMGMT ---
Social Work SW spoke with the patient and his again and confirmed they [facility] not OP therapy or HH [facility]
[2025-10-06] MEDS: Nitroglycerin (INPATIENT USE) 0.4 MG TAB.SUBL SL (14:56)
[2025-10-06] MEDS: 0.9% Normal Saline (250mL Bag) 250 ML 15 ML IV (15:04)
--- NOTE | 2025-10-06 17:30 | DS.PCM_ITS ---
Providers Date of Admission: 10/05/25 Date of Discharge: 10/06/25 Primary Care Physician: Dr. Carolynn Whitman MD Reason For Visit: WEAKNESS Medications at Discharge Home Medications handicap placcard #1 ea 09/28/19 coenzyme Q10 100 mg capsule (Co Q-10) 100 mg PO DAILY supplement 05/03/20 cholecalciferol (vitamin D3) 100 mcg (4,000 unit) tablet 100 mcg PO DAILY supplement 11/03/20 spacer #1 ea 01/12/21 lancets #180 ea 07/18/23 tamsulosin 0.4 mg capsule 0.4 mg PO DAILY prostate 06/01/24 finasteride 5 mg tablet 5 mg PO DAILY prostate 06/28/24 handicap placard #1 ea 10/12/24 apixaban 2.5 mg tablet (Eliquis) 2.5 mg PO BID atrial fibrillation #180 tabs 12/14/24 blood sugar diagnostic ([employer]Touch Ultra Test strips) #180 ea 12/21/24 albuterol sulfate 90 mcg/actuation aerosol inhaler (Ventolin HFA) 2 inh inhalation Q4H PRN shortness of breath or wheezing #18 grams 01/04/25 ipratropium 0.5 mg-albuterol 3 mg (2.5 mg base)/3 mL nebulization soln 3 ml inhalation TID SOB &/OR WHEEZING 01/29/25 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,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,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 (FreeStyle Dwight 3 [place]) #1 ea 02/01/25 budesonide-formoterol HFA 160 mcg-4.5 mcg/actuation aerosol inhaler (Symbicort) 2 puff inhalation BID copd #3 ea 03/23/25 mecobalamin (vitamin B12) 1,000 mcg chewable tablet (B12 Active) 1,000 mcg PO QDAY supplement 04/05/25 ropinirole 1 mg tablet See Rx Instructions PO QHS PRN restless leg 04/05/25 carvedilol 6.25 mg tablet 6.25 mg PO BID heart #180 tabs 04/08/25 gabapentin 100 mg capsule 100 mg PO QDAY pain 04/27/25 montelukast 10 mg tablet 10 mg PO QHS Respiratory #90 tabs 05/21/25 magnesium oxide 500 mg capsule 500 mg PO QDAY supplement 05/31/25 pantoprazole 40 mg tablet,delayed release 40 mg PO DAILY reflux #90 tabs 06/11/25 pen needle, diabetic 31 gauge x 1/4 (Unifine Pentips) #100 ea 06/21/25 empagliflozin 10 mg tablet (Jardiance) 10 mg PO DAILY blood sugar #90 tabs 06/28/25 atorvastatin 40 mg tablet 40 mg PO QODAY cholesterol #60 tabs 07/13/25 potassium chloride 20 mEq tablet,extended release(part/cryst) 20 meq PO BID supplement #60 tabs 07/13/25 insulin aspart U-100 100 unit/mL subcutaneous cartridge (Novolog PenFill U-100 Insulin aspart) 13 unit (0.13 mL) subcut TID PRN diabetes #15 mL 07/17/25 nitroglycerin 0.4 mg sublingual tablet (Nitrostat) 0.4 mg sublingual Q5-15M PRN chest pain #25 tabs 07/28/25 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 sensor (FreeStyle Dwight 3 Plus Sensor device) #3 ea 08/02/25 furosemide 40 mg tablet 40 mg PO BID edema 90 days #180 tabs 08/04/25 hydralazine 100 mg tablet 50 mg PO BID hypertension 08/04/25 lactulose 10 gram/15 mL oral solution 20 g (30 mL) PO DAILY PRN constipation #1,200 mL 08/26/25 azithromycin 250 mg tablet 250 mg PO ONCE #36 tabs 08/31/25 ranolazine 500 mg tablet,extended release,12 hr 500 mg PO .COMPLEX heart #360 tabs 09/17/25 ferrous sulfate 325 mg (65 mg iron) tablet (FeroSul) 325 mg PO DAILY low iron #30 tabs 09/20/25 acetaminophen 500 mg capsule 1,000 mg PO Q6H PRN pain 10/05/25 insulin glargine 100 unit/mL (3 mL) subcutaneous pen (Lantus Solostar U-100 Insulin) 20 unit subcut QHS diabetes 10/05/25 ipratropium bromide 42 mcg (0.06 %) nasal spray 2 spray intranasal TID allergies 10/05/25 cephalexin 500 mg capsule 500 mg PO Q8H 4 days #12 caps 10/06/25 Hospital Course Operations None Procedures None Summary of Care Provided Minutes Spent on Discharge: 33 Hospital Course: Per HPI: DESIREE ROSAS, is a 89 M who presents to the hospital with some chest pain, he has known coronary artery disease that is being medically managed with previous history of 9 stents. He did receive some bad news this morning which is when the chest pain started. He is already on maximum therapy from cardiology standpoint and was started on ranolazine about a year ago after he had a slightly positive stress test. Troponins are mildly elevated but insignificantly so is they are at his baseline especially in the setting of his chronic kidney disease. The reason for admission was the ER felt that he may have had a syncopal episode however in discussion with the patient and nursing he never collapsed and he states that he was not dizzy he just felt weak. COVID and flu test were negative and he had a UA about a week ago which was unremarkable though he does endorse some burning with urination so we will repeat a UA. Hospital Course: 1. Dysuria with weakness and debility?89-year-old male presented to the hospital because of weakness has been going on for couple weeks. On 09/27/2025 he did have an outpatient urine culture because of dysuria that was negative however he has continued to have some dysuria. He is allergic to Levaquin and sulfa antibiotics. He presents to the hospital with's chronic stable angina as well as his continued weakness. UA was consistent with a UTI so urine culture was obtained. I discussed with him that send PT and OT worked with him and did not feel that he needed placement though he could benefit from outpatient therapy he request to be discharged home. We discussed the risks and benefits of going home and he expressed understanding of those risks and benefits. He was given a dose of Rocephin and discharged on Keflex 500 mg p.o. 3 times daily pending urine culture. He declined outpatient physical therapy stating that he is gone before and he can do the exercises at home. 2. Chest pain/CAD status post stent/essential HTN/HLD/chronic diastolic CHF/A- fib?he has a history of 9 stents and chronic angina. There is no significant intervention to be done at this point, he is on maximal medical therapy. There is the issue with his Jardiance and his possible dysuria so if he does have a urine culture that is positive he will likely need to stop the Jardiance or at least have a very significant discussion with his wrong address clerk on the risks and benefits of this medication given his apparent UTI risk. His troponins were elevated but they are insignificant as they are baseline and he does have CKD. 3. Type 2 diabetes, GERD, BPH with obstruction, asthma/COPD overlap syndrome, iron deficiency anemia are all chronic medical conditions which complicate his care. His home medications were continued where appropriate Physical Exam Narrative General: Alert, Oriented x3, Cooperative, No apparent distress HEENT: Atraumatic, PERRLA, EOMI, Normocephalic Oral: Moist Mucosa Neck: Supple, No JVD Lungs: Diminished, Normal air movement, No rhonchi, No wheeze, No rales Cardiovascular: Regular rate, Regular Rhythm, Normal S1, Normal S2, No murmurs Abdomen: Soft, Non Tender, Non-Distended, No Hepato-splenomegaly Extremities: No edema, Capillary Refill Less than 3 Seconds Skin: No rashes, No breakdown, multiple areas of ecchymosis and skin tears in different stages of healing Musculoskeletal: No Tenderness to Palpation of Joints or Extremities Neurological: No focal neurological deficits, moves all extremities Psych/Mental Status: Normal Affect, Appropriate Weight / BMI Weight Weight: 186 lb 4.8 oz Body Mass Index (BMI) 28.3 ABG / Lab / Microbiology Data 10/06/25 05:16 10/06/25 05:16 Laboratory: Laboratory Results - last 24 hr 10/06/25 11:35: POC Glucose 203 H Microbiology: Microbiology 10/05/25 13:28 Mucosa - Nose SARS-CoV-2, Influenza & RSV (PCR) - Final D/C Instructions Call your doctor if you observe: Fever of 101 or Higher, Shortness of breath, Dizziness, Fainting spells, Swelling in the ankles, Chest pain and Increased palpitations (irregular heartbeat) DC O2, CPAP, BIPAP Needs Home O2 Discharge instructions: No Meaningful Use Info Meaningful Use Meaningful Use Diagnoses (Choose all that apply): None applicable Discharge Plan Admission Admit Date/Time: 10/05/25 14:59 Attending Provider: Tk Chandra Primary Care Provider: Carolynn Whitman Discharge Orders/Prescriptions Prescriptions: New cephalexin 500 mg capsule 500 mg PO Q8H 4 Days Qty: 12 0RF Rx Instructions: Start 10/07/2025 Continued (DME) handicap placcard Qty: 1 0RF Rx Instructions: Lifetime: debility coenzyme Q10 [Co Q-10] 100 mg capsule 100 mg PO DAILY cholecalciferol (vitamin D3) 100 mcg (4,000 unit) tablet 100 mcg PO DAILY (DME) spacer See Rx Instructions .ROUTE .MEDSUPPLY Qty: 1 0RF Rx Instructions: As directed (DME) [facility] [place] See Rx Instructions .Route Qty: 180 1RF Rx Instructions: twice daily tamsulosin 0.4 mg capsule 0.4 mg PO DAILY Patient Comments: PT has resumed taking magnesium oxide 500 mg capsule 500 mg PO QDAY (DME) [employer] 3 [place] [facility] [place] See Rx Instructions .Route Qty: 1 0RF Rx Instructions: As directed budesonide-formoterol [Symbicort] 160-4.5 mcg/actuation HFA aerosol inhaler 2 puff inhalation BID Qty: 3 3RF Rx Instructions: administer with spacer, rinse mouth after each use ropinirole 1 mg tablet See Rx Instructions PO QHS PRN (Reason: restless leg) Rx Instructions: 2-3 orally at bedtime PRN; administer 2-3 tablets, 1-3 hours before bedtime mecobalamin (vitamin B12) [B12 Active] 1,000 mcg tablet,chewable 1,000 mcg PO QDAY gabapentin 100 mg capsule 100 mg PO QDAY Rx Instructions: SPECIAL INSTRUCTIONS CAN USE UP TO 300 PRN (DME) pen needle, diabetic [Unifine Pentips] 31 gauge x 1/4 needle See Rx Instructions .ROUTE .COMPLEX Qty: 100 1RF Dose Instruction: use 3 TO 4 needles daily Rx Instructions: use 3 TO 4 needles daily lactulose 10 gram/15 mL solution 20 g PO DAILY PRN (Reason: constipation) Qty: 1200 0RF azithromycin 250 mg tablet 250 mg PO ONCE Qty: 36 3RF Rx Instructions: Saturday, Saturday, Saturday hydralazine 100 mg tablet 50 mg PO BID Patient Comments: pt cuts pill in half and takes half in the morning and half in the evening finasteride 5 mg tablet 5 mg PO DAILY Patient Comments: PT TAKES AT NIGHT ipratropium bromide 42 mcg (0.06 %) spray,non-aerosol 2 spray INTRANASAL TID insulin glargine [Lantus Solostar U-100 Insulin] 100 unit/mL (3 mL) insulin pen 20 unit subcut QHS Rx Instructions: Hold if glucose less than 130 mg/dl acetaminophen 500 mg capsule 1,000 mg PO Q6H PRN (Reason: pain) ipratropium-albuterol 0.5 mg-3 mg(2.5 mg base)/3 mL solution for nebulization 3 ml inhalation TID Rx Instructions: 3 mL inhaled; insulin aspart U-100 [Novolog PenFill U-100 Insulin] 100 unit/mL cartridge 13 unit subcut TID PRN (Reason: diabetes) Qty: 15 0RF Rx Instructions: hold if glucose is under 130 (DME) handicap placard See Rx Instructions .ROUTE .MEDSUPPLY Qty: 1 0RF Rx Instructions: Length of time: 5 years Diganosis: Impaired physical mobility Eliquis 2.5 mg tablet 2.5 mg PO BID Qty: 180 4RF (DME) OneTouch Ultra Test Strip See Rx Instructions .Route Qty: 180 1RF Rx Instructions: Check three to four times a day. albuterol sulfate [Ventolin HFA] 90 mcg/actuation HFA aerosol inhaler 2 inh INHALATION Q4H PRN (Reason: shortness of breath or wheezing) Qty: 18 6RF carvedilol 6.25 mg tablet 6.25 mg PO BID Qty: 180 3RF Rx Instructions: must administer with a meal/food montelukast 10 mg tablet 10 mg PO QHS Qty: 90 3RF pantoprazole 40 mg tablet,delayed release (DR/EC) 40 mg PO DAILY Qty: 90 3RF Jardiance 10 mg tablet 10 mg PO DAILY Qty: 90 3RF atorvastatin 40 mg tablet 40 mg PO QODAY Qty: 60 3RF Patient Comments: pt takes mo we fr Rx Instructions: at bedtime potassium chloride 20 mEq tablet,ER particles/crystals 20 meq PO BID Qty: 60 2RF nitroglycerin [Nitrostat] 0.4 mg tablet, sublingual 0.4 mg SUBLINGUAL Q5-15M PRN (Reason: chest pain) Qty: 25 2RF (DME) FreeStyle Dwight 3 Plus Sensor Device See Rx Instructions .Route Qty: 3 2RF Rx Instructions: As directed furosemide 40 mg tablet 40 mg PO BID 90 Days Qty: 180 3RF ranolazine 500 mg tablet extended release 12 hr 500 mg PO .COMPLEX Qty: 360 3RF Rx Instructions: 500 mg orally two tablets twice a day (pt cannot swallow the 1000mg tablets ); ferrous sulfate [FeroSul] 325 mg (65 mg iron) tablet 325 mg PO DAILY Qty: 30 2RF Rx Instructions: 1 tablet daily Referrals / Follow Up: Carolynn Whitman MD [Primary Care Provider, Internal Medicine] - Within 1 Week Disposition Disposition (needs filled in before D/C Order can be placed): Home, Self Care Charges/Coding Visit Charges Inpatient E&M: 81936 Disch Hosp >30min
== END 2025-10-06 16:02 | disposition home or self-care (01) ==
LOC: ED 14:04 → PCU 15:12
PROVIDERS: Admitting Provider Family Medicine; Emergency Provider Emergency Medicine; PCP Internal Medicine; Visit Provider Family Medicine
DX: R53.1 Weakness (principal); I13.0 Hypertensive heart and chronic kidney disease with heart failure and stage 1 through stage 4 chronic kidney disease, or unspecified chronic kidney disease; I50.42 Chronic combined systolic (congestive) and diastolic (congestive) heart failure; J44.89 Other specified chronic obstructive pulmonary disease; I48.91 Unspecified atrial fibrillation; E11.51 Type 2 diabetes mellitus with diabetic peripheral angiopathy without gangrene; E11.22 Type 2 diabetes mellitus with diabetic chronic kidney disease; E11.40 Type 2 diabetes mellitus with diabetic neuropathy, unspecified; Z79.4 Long term (current) use of insulin; Z79.51 Long term (current) use of inhaled steroids; N18.9 Chronic kidney disease, unspecified; Z79.01 Long term (current) use of anticoagulants; Z87.891 Personal history of nicotine dependence; K21.9 Gastro-esophageal reflux disease without esophagitis; I25.118 Atherosclerotic heart disease of native coronary artery with other forms of angina pectoris; E78.5 Hyperlipidemia, unspecified; R30.0 Dysuria; Z79.84 Long term (current) use of oral hypoglycemic drugs; D50.9 Iron deficiency anemia, unspecified; Z79.899 Other long term (current) drug therapy; Z95.5 Presence of coronary angioplasty implant and graft; N40.1 Benign prostatic hyperplasia with lower urinary tract symptoms; N13.8 Other obstructive and reflux uropathy
CPT/HCPCS: 36415; 71046; 80048; 81001; 82962; 84484; 85025; 87086; 87088; 87631; 93005; 94640; 96365; 97162; 97166; 99221; 99285; A4216; G0378